=== PATIENT | male | born 1960 | race Caucasian/White ===

== ENCOUNTER 2019-01-13 07:00 | Outpatient (RCR) | payer SELFPAY ==
[2019-01-21 07:31] LABS: Glucose Point of Care 207 (65-105)
== END 2019-01-13 23:59 | disposition home or self-care (01) ==
LOC: ANHAUDIO 07:00
PROVIDERS: PCP Registered Nurse
DX: Z46.1 Encounter for fitting and adjustment of hearing aid (principal)
CPT/HCPCS: 99199

== ENCOUNTER 2019-01-24 09:43 | Observation (INO) | payer MEDICARE, MEDICAID, SELFPAY ==
[2019-01-24] VITALS (15 sets, daily range): BP systolic 123–166; BP diastolic 79–101; PULSE 74–86; RESP 16–24; TEMP 36.2–36.7; O2SAT 95–98; BMI 46.5
--- NOTE | ~2019-01-24 | CT_ITS ---
EXAMINATION: CT brain wo con DATE: 01/24/2019 18:39 INDICATION: Dizziness, diplopia and blurry vision TECHNIQUE: Computed tomography (CT) of the head was performed without intravenous contrast. Sagittal and coronal reconstructions were performed. The mA was adjusted according to patient size. Iterative reconstruction technique was employed. The dose-length product was 605.33 mGy-cm. COMPARISON: head CT dated 05/26/2018 FINDINGS: Unchanged small old lacunar infarct in the posterior right frontal aguayo radiata. No acute intracran ial hemorrhage, acute infarction or abnormal extra axial fluid collection. Ventricles are normal and symmetric. No mass/mass effect. Mild mucoperiosteal thickening the right ethmoid sinus. The orbits an d mastoid air cells are normal. Intracranial calcified cerebral atherosclerosis is noted. IMPRESSION: 1. No acute intracranial process. 2. Small old lacunar infarct in the right frontal aguayo radiata. Reviewed, dictated and finalized at location A. C THEORY PROFESSOR
--- NOTE | ~2019-01-24 | US_ITS ---
EXAMINATION: US carotid duplex BI DATE: 01/25/2019 09:29 INDICATION: Cerebrovascular accident. TECHNIQUE: Grayscale, color Doppler, and pulsed Doppler images of the cervical carotid arteries were obtained. The degree of vessel stenosis is placed in one of the following categories: normal, <50%, 5 0-69%, >=70% but less than near-occlusion, near-occlusion, or total occlusion. Note that percent sten osis relative to normal distal artery lumen diameter is indirectly measured from velocity measurement s as described by Marcus, et al. Radiology 2003; 229:340-346. COMPARISON: Ultrasound 05/19/2018 FINDINGS: RIGHT: The right common carotid artery (CCA) peak systolic velocity (PSV) is 86 cm/s. The right internal car otid artery (ICA) PSV is 71 cm/s. The right ICA end-diastolic velocity (EDV) is 21 cm/s. The right IC A/CCA PSV ratio is 0.8. Grayscale and color Doppler images yield an estimate of <50% diameter reducti on from plaque in the ICA. There is antegrade flow in the right vertebral artery. LEFT: The left CCA PSV is 93 cm/s. The left ICA PSV is 72 cm/s. The left ICA EDV is 29 cm/s. The left ICA/C CA PSV ratio is 0.8. Grayscale and color Doppler images yield an estimate of <50% diameter reduction from plaque in the ICA. There is antegrade flow in the left vertebral artery. IMPRESSION: 1. <50% stenosis in the right internal carotid artery. 2. <50% stenosis in the left internal carotid artery. Reviewed, dictated and finalized at location A. ACTER ARTIST
--- NOTE | ~2019-01-24 | XR_ITS ---
EXAMINATION: XR chest 2V EXAM DATE: 01/24/2019 10:18 INDICATION: Chest pain, shortness of breath. TECHNIQUE: Frontal and lateral projections of the chest obtained and reviewed. Comparison is made to prior examination from 11/29/2018, 10/07/2018. FINDINGS: Cardiomediastinal silhouette is normal. There is cardiac monitoring device. There are smal l bilateral pleural effusions. Some basilar linear opacities, prominent reticulation most likely atel ectasis. Basilar bronchopneumonia not excludable. No confluent consolidation or pneumothorax. There a re old right rib fracture. Patient has diffuse idiopathic skeletal hyperostosis (DISH). IMPRESSION: 1. Linear basilar atelectasis and small pleural effusions. Reviewed, dictated and finalized at location A. H HAND
--- NOTE | 2019-01-24 09:55 | ECG_ITS ---
Measurements Intervals [place] Rate: 81 P: 41 TN: 143 QRS: 28 QRSD: 149 T: 14 QT: 394 QTc: 458 Interpretive Statements SINUS RHYTHM RIGHT BUNDLE BRANCH BLOCK ABNORMAL ECG Electronically Signed On 01-24-2019 10:16:56 CHILI PEPPER GRINDER by Mathew Landon D.O.
[2019-01-24 10:14] LABS: Basophils Percent Auto 0.1 % (0.2-1.2); Eosinophils Absolute Auto 0.2 K/mm3 (0-0.3); Eosinophils Percent Auto 2.3 % (0-4.4); Hematocrit 40.5 % (42.0-52.0); Hemoglobin 13.6 g/dL (14.0-18.0); Immature Granulocyte Absolute 0.02 K/mm3 (0.00-0.031); Immature Granulocyte Percent A 0.3 % (0-0.5); Lymphocytes Absolute Auto 1.41 K/mm3 (0.9-3.2); Lymphocytes Percent Auto 17.7 % (18.3-44.2); Mean Corpuscular HGB Conc 33.6 g/dl (32-36); Mean Corpuscular Hemoglobin 30.7 pg (26-34); Mean Corpuscular Volume 91.4 fl (80-100); Mean Platelet Volume 11.3 fl (7.4-10.4); Monocytes Absolute Auto 0.7 K/mm3 (0.1-0.6); Monocytes Percent Auto 8.3 % (2.6-8.5); Neutrophils Absolute Auto 5.7 K/mm3 (1.3-6.7); Neutrophils Percent Auto 71.3 % (45.5-73.1); Platelet Count Result 142 k/mm3 (150-375); Red Blood Count 4.43 M/mm3 (4.6-6.20); Red Cell Distribution Width 13.4 % (11.5-14.5)
[2019-01-24 10:30] LABS: Partial Thromboplastin Time 28.1 SECONDS (22.3-36.8); Prothrombin Time 13.3 Seconds (11.1-14.7)
[2019-01-24 10:31] LABS: Blood Urea Nitrogen 15 mg/dL (9-20); Calcium 9.2 mg/dL (8.4-10.2); Carbon Dioxide 24 mmol/L (22-30); Chloride 102 mmol/L (98-107); Estimated CRCL calculation 120 ml/min; Estimated Glomerular Filt Rate > 60; Glucose 192 mg/dL (75-110); Potassium 4.2 mmol/L (3.4-5.0); Sodium 139 mmol/L (137-145)
--- NOTE | 2019-01-24 10:36 | ED.SOB ---
HPI - SOB/Dyspnea General Chief Complaint: Shortness of Breath/Dyspnea Stated Complaint: sob Time Seen by Provider: 01/24/19 10:26 Source: patient Mode of arrival: ambulatory Limitations: no limitations History of Present Illness HPI Narrative: Pt is a 58 y/o male with a PMHx of ND, CAD, HTN, HLD, and CHF, who presents to the ED with c/o SOB that started Thursday (2 days ago). Pt states that when he woke up Thursday morning and got up he was SOB, dizzy, and was having CP. He describes his CP as a dull ache. Pt also reports having a VILLASEÑOR in the ED bed. He states that all of his Sx are aggravated with exertion and alleviated with rest. He notes that it takes longer for his SOB to be alleviated with rest. He states that his dizziness felt like he was unstable to walk and was off balance. He also reports double vision and blurry vision. Pt notes that he always had ringing in his ears but it is louder than normal. He also reports nausea, dry cough, and congestion, but he denies vomiting or a fever. Pt states that he has not gained weight recently and he denies any leg swelling. He notes that he took his water pill yesterday morning and that he urinated throughout the day and woke up 5 times last night to urinate. Pt notes that his muscles feel like they are burning. His Coal Cutter is Dr. Willoughby. elicited complaint: shortness of breath Pertinent past history: congestive heart failure and other (ND, CAD, HTN, HLD) Onset (ago): day(s) (2) Exacerbating factors: exertion Relieving factors: rest Known history of: congestive heart failure Associated symptoms: chest pain, cough (dry), chest congestion, dizziness and other (nausea, VILLASEÑOR, tinnitus, double vision, blurry vision, myalgia) Treatment prior to arrival: none Related Data Allergies Allergy/AdvReac Type Severity Reaction Status Date / Time No Known Allergies Allergy Unknown Verified 01/24/19 10:01 Review of Systems Review of Systems: All systems reviewed & are unremarkable except as noted in HPI and below Constitutional: Constitutional: Denies fever(s) Eyes: Eyes: Reports blurry vision and Reports change in vision (double vision) ENT: Reports tinnitus (worsening) Cardiovascular: Cardiovascular: Reports chest pain (dull ache) Respiratory: Respiratory: Reports chest congestion, Reports cough (dry) and Reports dyspnea Gastrointestinal: Gastrointestinal: Reports nausea and Denies vomiting Musculoskeletal: Musculoskeletal: Reports myalgias (muscles burning) Neurologic: Reports dizziness and Reports headache(s) [facility] Past Medical History Medical History (Updated 01/24/19 @ 12:39 by Jose Yates MD) Anxiety (Acute) Arthritis (Acute) CAD (coronary artery disease) (Acute) CHF (congestive heart failure) (Acute) COPD (chronic obstructive pulmonary disease) (Acute) Crohn's disease (Acute) CVA (cerebral vascular accident) (Acute) Depression (Acute) Diabetes mellitus (Acute) Eczema (Acute) Fracture of fifth toe, right, closed (Acute) GERD (gastroesophageal reflux disease) (Acute) GI bleed (Acute) HLD (hyperlipidemia) (Acute) HTN (hypertension) (Acute) Kidney stones (Acute) Myocardial infarction (Acute) TAMIR on CPAP (Acute) Peripheral neuropathy (Acute) Pneumonia (Acute) Psoriasis (Acute) PVD (peripheral vascular disease) (Acute) Rectal polyp (Acute) Seasonal allergies (Acute) Sleep apnea (Acute) TIA (transient ischemic attack) (Acute) UTI (urinary tract infection) (Acute) Surgical History Surgical History (Updated 01/24/19 @ 10:59 by Sin Steve) H/O heart artery stent (Acute) H/O lithotripsy (Acute) History of cardiac catheterization (Acute) History of loop recorder (Acute) Hx of cholecystectomy (Acute) Hx of tonsillectomy (Acute) Family History Family History (Updated 05/27/17 @ 14:33 by DOCTOR UNKNOWN) Mother Diabetes mellitus Patient's mother is Father Acute myocardial infarction Family history of cardiovascular disease Sibling Family histor
[2019-01-24 10:40] LABS: NT Pro B Type Natriuretic Pept 39 PG/ML (5-100)
[2019-01-24 10:43] LABS: Troponin I < 0.012 ng/mL (0.000-0.034)
[2019-01-24] MEDS: ASPIRIN 81 MG CHEWABLE TABLET 324 MG PO (11:16)
--- NOTE | 2019-01-24 11:19 | PC.NURSE ---
Pt. stated being on plavix and a baby aspirin daily but has not taken them today. Waited for EDP to see Pt before administering 4 baby aspirins. EDP notified and is okay with administration of 4 baby aspirins.
[2019-01-24 13:39] LABS: Troponin I < 0.012 ng/mL (0.000-0.034)
[2019-01-24 16:42] LABS: Troponin I < 0.012 ng/mL (0.000-0.034)
[2019-01-24 17:29] LABS: Glucose Point of Care 139 (65-105)
--- NOTE | 2019-01-24 18:21 | PM.IMHP ---
H&P: HPI History of Present Illness Chief complaint: chest pain Narrative: Vini Zambrano is a 58 year old male has a past medical history of having a myocardial infarction with 2 stents, coronary artery disease, hypertension, hyperlipidemia, and congestive heart failure. The patient stated that he woke up day morning and when he got abuse short of breath, dizzy and having some chest pain. He also has dull headache. He has a bandlike headache. Patient has had multiple TIAs. He stated he has had at least 2 strokes. The patient felt very dizzy and unstable to walk today. He had double vision and blurred vision. Has ringing and is ears is worsened normal. The patient stated that the chest pain is more like a pressure. He is ordered for lactated Ringer's and given aspirin. Date of service is 01/24/2019. Patient stated that his chest pain has been constant has been a pressure. Patient is also short of breath when walking and when sitting still. Cardiology has been consulted. Troponins have been negative. Patient is being admitted for an tonight and possible TIA. Review of Systems Review of Systems: Narrative: The patient complains of dizziness, blurred vision, diplopia, chest pressure, and dyspnea on exertion and rest. He also complains of a pressure-like headache that the band away around his head. He typically has tinnitus but his ringing in his ears as worse today. He feels like he did when he has had a stroke in the past. All systems reviewed & are unremarkable except as noted in HPI and below Constitutional: Constitutional: Reports as per HPI and Reports no additional constitutional complaints Eyes: Eyes: Reports as per HPI, Reports blurry vision, Reports change in vision (Diplopia and blurred vision) and Reports diplopia ENT: Reports system reviewed and no additional complaints, except as documented, Reports hearing normal (Has hearing aids), Reports dizziness, Reports hearing loss and Reports other (Tinnitus worse than normal.) Cardiovascular: Cardiovascular: Reports no additional cardiovascular complaints, Reports chest pain, Reports chest pain at rest, Reports chest pain with activity, Reports dyspnea on exertion and Reports orthopnea Respiratory: Respiratory: Reports no additional respiratory complaints, Reports no additional respiratory complaints and Reports cough Gastrointestinal: Gastrointestinal: Reports as per HPI and Reports loose stools (Chronically since he got his gallbladder out.) Musculoskeletal: Musculoskeletal: Reports no additional musculoskeletal complaints Integumentary/Breasts: Skin/Breast: Reports system reviewed and no additional complaints, except as docu, Reports as per HPI and Reports dry skin (Bilateral elbows psoriasis) Neurologic: Reports system reviewed and no additional complaints, except as documented, Reports as per HPI and Reports Normal hearing present Psychiatric: Psychiatric: Reports no additional psychiatric complaints and Reports as per HPI Endocrine: Endocrine: Reports no additional endocrine complaints Hematologic/Lymphatic: Hematologic/Lymphatic: Reports no additional hematologic/lymphatic complaints Allergic/Immunologic: Allergic/Immunologic: Reports no additional allergic/immunologic complaints [facility] Past Medical History Medical History (Updated 01/24/19 @ 18:40 by Jennifer Paredes NP) Anxiety (Chronic) Arthritis (Chronic) CAD (coronary artery disease) (Chronic) CHF (congestive heart failure) (Chronic) COPD (chronic obstructive pulmonary disease) (Chronic) CVA (cerebral vascular accident) (Chronic) Depression (Chronic) Diabetes mellitus (Chronic) Eczema (Chronic) Fracture of fifth toe, right, closed (Resolved) GERD (gastroesophageal reflux disease) (Chronic) GI bleed (Resolved) HLD (hyperlipidemia) (Chronic) HTN (hypertension) (Chronic) Kidney stones (Chronic) Myocardial infarction (Resolved) TAMIR on CPAP (Chronic) Peripheral neuropathy (Chronic) Pneumonia (Resolved) Ps
[2019-01-24 18:51] LABS: Hemoglobin A1C 6.1 % (<5.7)
[2019-01-24 20:44] LABS: Glucose Point of Care 186 (65-105)
[2019-01-24] MEDS: ACETAMINOPHEN 325 MG TABLET 650 MG PO (20:48)
[2019-01-24] MEDS: FAMOTIDINE 20 MG/2 ML VIAL IV PUSH (20:49)
[2019-01-24] MEDS: IPRATROPIUM BR 0.02% INH SOLN 0.5 MG/2.5 ML VIAL INHALATION (21:20)
[2019-01-24] MEDS: ALBUTEROL SULFATE NEB 2.5 MG/0.5 ML INH INHALATION (21:20)
[2019-01-25] VITALS (15 sets, daily range): BP systolic 134–148; BP diastolic 68–70; PULSE 70–88; RESP 18–22; TEMP 36.2–36.7; O2SAT 96–99
--- NOTE | 2019-01-25 | ECHO_ITS ---
Patient Info Name: Vini Zambrano Age: 58 years : 1960 Gender: Male Ht: 72 in Wt: 341 lbs BSA: 2.88 m2 HR: 75 bpm BP: 140 / 70 mmHg Technical Quality: Good Exam Date: 01/25/2019 10:45 AM Exam Location: [facility] Patient Status: Outpatient Admit Date: 01/24/2019 Staff Ordering Physician: Jennifer Paredes NP Edge Finisher: Carlos Madera RDCS, RT Attending Provider: Emiliana Ayala MD Referring Physician: Lena VILLAREAL; Exam Type: CA echo dop color flow w con Study Info Indications I48.0 - Paroxysmal atrial fibrillation Complete two-dimensional, color flow and Doppler transthoracic echocardiogram is performed with contrast to opacify the left ventricle and to improve the deliniation of the left ventricle endocardial borders. Summary 1. Normal left ventricular size, with mild concentric left ventricular hypertrophy and good systolic function of all segments. No segmental wall motion abnormalities. The visual estimate of ejection fraction is 60-65%; measured 61%. Grade 2 diastolic dysfunction is present. 2. Right ventricular chamber dimension is mildly enlarged and mildly hypokinetic. 3. There is trace mitral and tricuspid valve regurgitation. 4. Mild pulmonary hypertension, estimated pulmonary arterial systolic pressure is 43 mmHg. 5. Technically difficult study; definity echo contrast used. 6. No significant change compared to the study of April 2018. Left Ventricle Left ventricular chamber dimension is normal. Left ventricular systolic function is normal, estimated at 60-65%. There is mildly increased left ventricular wall thickness. Left ventricular septal wall motion is normal. The left ventricular diastolic function is grade II diastolic dysfunction. Normal left ventricular size, with mild concentric left ventricular hypertrophy and good systolic function of all segments. No segmental wall motion abnormalities. The visual estimate of ejection fraction is 60-65%; measured 61%. Grade 2 diastolic dysfunction is present. Right Ventricle Right ventricular chamber dimension is mildly enlarged and mildly hypokinetic. Right ventricular systolic function is reduced. Left Atria Left atrial chamber dimension is normal. Right Atria Right atrial chamber dimension is normal. Aortic Valve The aortic valve is trileaflet. There is no aortic valve sclerosis. There is no aortic valve stenosis. There is no aortic valve regurgitation. Pulmonic Valve The pulmonic valve is normal. There is no pulmonic valve stenosis. There is no pulmonic regurgitation. Mitral Valve The mitral valve has normal leaflets. There is no mitral valve stenosis. There is trace mitral and tricuspid valve regurgitation. Tricuspid Valve The tricuspid valve leaflets are normal. There is no significant tricuspid valve stenosis. There is trace tricuspid valve regurgitation. Mild pulmonary hypertension, estimated pulmonary arterial systolic pressure is 43 mmHg. Pericardium/Pleural The pericardium appears normal. There is no pericardial effusion. Inferior Vena Cava Normal inferior vena cava with >50% collapse upon inspiration consistent with Empty right atrial pressure, 10 mmHg. Aorta The aortic root size at the sinus of Valsalva is normal. The prox ascending aorta size is normal. Left Ventricular Outflow Tract Name Value Normal
[2019-01-25] MEDS: ALBUTEROL SULFATE NEB 2.5 MG/0.5 ML INH INHALATION ×3 (02:20→13:33)
[2019-01-25] MEDS: IPRATROPIUM BR 0.02% INH SOLN 0.5 MG/2.5 ML VIAL INHALATION ×3 (02:20→13:33)
[2019-01-25 05:33] LABS: Basophils Percent Auto 0.2 % (0.2-1.2); Eosinophils Absolute Auto 0.2 K/mm3 (0-0.3); Eosinophils Percent Auto 2.4 % (0-4.4); Hematocrit 40.5 % (42.0-52.0); Hemoglobin 13.6 g/dL (14.0-18.0); Immature Granulocyte Absolute 0.03 K/mm3 (0.00-0.031); Immature Granulocyte Percent A 0.4 % (0-0.5); Immature Platelet Fraction Pct 6.3 % (0.9-11.2); Lymphocytes Absolute Auto 1.38 K/mm3 (0.9-3.2); Lymphocytes Percent Auto 16.6 % (18.3-44.2); Mean Corpuscular HGB Conc 33.6 g/dl (32-36); Mean Corpuscular Hemoglobin 30.6 pg (26-34); Mean Platelet Volume 11.2 fl (7.4-10.4); Monocytes Absolute Auto 0.7 K/mm3 (0.1-0.6); Monocytes Percent Auto 8.7 % (2.6-8.5); Neutrophils Percent Auto 71.7 % (45.5-73.1); Platelet Count Result 131 k/mm3 (150-375); Red Blood Count 4.45 M/mm3 (4.6-6.20); Red Cell Distribution Width 13.4 % (11.5-14.5); White Blood Count 8.3 K/mm3 (4.5-10.0)
[2019-01-25 05:42] LABS: Alanine Aminotransferase 48 U/L (4-50); Albumin Level 3.9 g/dL (3.5-5.1); Alkaline Phosphatase 56 U/L (38-126); Aspartate Amino Transferase 43 U/L (17-59); Bilirubin,Total 0.4 mg/dL (0.2-1.3); Blood Urea Nitrogen 15 mg/dL (9-20); Carbon Dioxide 26 mmol/L (22-30); Chloride 100 mmol/L (98-107); Estimated CRCL calculation 119 ml/min; Estimated Glomerular Filt Rate > 60; Glucose 177 mg/dL (75-110); Magnesium 1.7 mg/dL (1.6-2.3); Potassium 4.1 mmol/L (3.4-5.0); Sodium 137 mmol/L (137-145)
[2019-01-25 08:28] LABS: Glucose Point of Care 190 (65-105)
--- NOTE | 2019-01-25 09:09 | PM.CNCAR ---
Assessment and Plan Assessment and plan (1) Chest pain: Code(s): R07.9 - Chest pain, unspecified Status: Acute Assessment and Plan: 58-year-old morbidly obese male with known coronary disease, history of PCI/stenting of distal LCX and proximal LAD; hypertension, dyslipidemia, history of CVA with left-sided weakness, TAMIR on CPAP. Patient admitted about 4 day history of chest pain, worse with exertion. His EKG shows sinus rhythm, right bundle branch block acute ST segment abnormalities. Serial troponins are negative. Patient has known coronary disease, and has history of PCI/stenting. Ischemic evaluation options were discussed with the patient. He is eager to go home, and wants to have nonischemic evaluation in the Cardiology Clinic in next few days. Outpatient stress test with imaging will be arranged. Patient was advised to return to the hospital if he has severe recurrent chest discomfort. He verbalized understanding. Need for invasive workup will be based on patient's MPI results and his clinical course. Patient was advised to continue current medical regimen including antiplatelet therapy, antianginal medications, statin. (2) CAD (coronary artery disease): Code(s): I25.10 - Atherosclerotic heart disease of solomon coronary artery without angina pectoris Status: Chronic Assessment and Plan: Management plan as described above (3) TAMIR on CPAP: Code(s): G47.33 - Obstructive sleep apnea (adult) (pediatric); Z99.89 - Dependence on other enabling machines and devices Status: Chronic Assessment and Plan: Continue CPAP for TAMIR History of Present Illness History of Present Illness Consult date/time: 01/25/19 09:09 58-year-old morbidly obese male with known coronary disease, history of PCI/stenting of distal LCX and proximal LAD; hypertension, dyslipidemia, history of CVA with left-sided weakness, TAMIR on CPAP. Patient was admitted to the hospital with 4 days history of chest discomfort. He describes his chest pain as dull aching sensation in the substernal area which is worse with exertion. He has associated shortness of breath, fatigue and dizziness without syncope. Patient has known CAD, and had PCI/stenting of distal left circumflex on 09/11/2014. Subsequently, he had coronary angiogram done on 04/19/2015 in the setting of recurrent chest discomfort. At that time, he was found to have about 60% stenosis in the proximal LAD with abnormal FFR of 0.74. He underwent FFR guided PCI/GENARO x1 of proximal LAD. Over the years, patient states that he occasionally has discomfort, however, lately he is experiencing more frequent episodes of chest pain. He has not used any nitroglycerin at home. He reports compliance with current medical regimen including antiplatelet therapy. EKG on this admission which I personally evaluated shows sinus rhythm, right bundle-branch block, no acute ST segment abnormality. Serial troponins are negative. CT scan of the head reported old lacunar infarct. Previous BRITANY from 07/15/2018 showed normal LVEF, no inter-atrial shunt. At the time of evaluation, patient was undergoing bedside echocardiogram which on my preliminary assessment showed preserved LV systolic function. Patient is eager to go home and wants to have ischemic evaluation as an outpatient. Reason For Visit: chest pain Review of Systems Constitutional: Constitutional: Denies chills, Denies fatigue, Denies fever(s) and Denies headache(s) Eyes: Eyes: Reports as per HPI, Denies change in vision, Denies loss of vision and Denies eye pain ENT: Reports as per HPI, Reports hearing normal, Denies headache(s), Denies lip swelling, Denies epistaxis and Denies sore throat Cardiovascular: Cardiovascular: Reports chest pain, Denies syncope, Denies irregular heart rhythm, Reports lightheadedness and Reports dyspnea Respiratory: Respiratory: Reports as per HPI, Denies cough, Reports dyspnea and Denies wheezing Gastrointest
[2019-01-25] MEDS: FAMOTIDINE 20 MG/2 ML VIAL IV PUSH (10:04)
[2019-01-25] MEDS: PERFLUTREN LIPID MICROSPHERES 1.5 ML VIAL DILUTED TO 10 ML TOTAL VOLUME IV PUSH (11:39)
--- NOTE | 2019-01-25 11:52 | PM.DS ---
DS: Diagnosis Admitting Diagnosis Admitting Diagnosis: Other forms of angina pectoris Discharge Diagnosis (1) Angina at rest: Code(s): I20.8 - Other forms of angina pectoris Status: Acute Assessment and Plan: Vini Zambrano is a 58 year old male has a past medical history of having a myocardial infarction with 2 stents, coronary artery disease, hypertension, hyperlipidemia, and congestive heart failure. Pt had troponins x3 which were negative. PT seen by cardiology and is stable for dischrage with outpatient stress test. Pt has extensive cardiac history with PCI/stenting of distal LCX and proximal LAD. And has RBBB on EKG. Pt appears to be having some chest pain on exertion likely chronic stable angina, pt to continue with medications. and follow with cardiology for stress test. Pt is very eager to go home today. Prefers to follow up. Cardiac enzymes are negative x3. Patient is is a constant pressure. Cardiology to see. He does have a history of having 2 stents in the past (2) HLD (hyperlipidemia): Code(s): E78.5 - Hyperlipidemia, unspecified Status: Chronic Assessment and Plan: Continue with atrial statin. (3) HTN (hypertension): Code(s): I10 - Essential (primary) hypertension Status: Chronic Assessment and Plan: Continue with Coreg (4) Myocardial infarction: Code(s): I21.9 - Acute myocardial infarction, unspecified Status: Resolved Assessment and Plan: The patient had IA in the past 2 stents. On Coreg. (5) TAMIR on CPAP: Code(s): G47.33 - Obstructive sleep apnea (adult) (pediatric); Z99.89 - Dependence on other enabling machines and devices Status: Chronic Assessment and Plan: Home CPAP (6) Peripheral neuropathy: Code(s): G62.9 - Polyneuropathy, unspecified Status: Chronic Assessment and Plan: Continue to keep diabetes under control (7) Sleep apnea: Code(s): G47.30 - Sleep apnea, unspecified Status: Chronic Assessment and Plan: Continue with BiPAP. (8) Diabetes mellitus: Code(s): E11.9 - Type 2 diabetes mellitus without complications Status: Chronic Assessment and Plan: Sliding scale insulin. Hold metformin. (9) Depression: Code(s): F32.9 - Major depressive disorder, single episode, unspecified Status: Chronic Assessment and Plan: Continue bupropion (10) CVA (cerebral vascular accident): Code(s): I63.9 - Cerebral infarction, unspecified Status: Chronic Assessment and Plan: Patient is having similar symptoms to when he had a stroke in the past. CT brain and US carotoids completed prior to dischrage. (11) COPD (chronic obstructive pulmonary disease): Code(s): J44.9 - Chronic obstructive pulmonary disease, unspecified Status: Chronic Assessment and Plan: Duonebs prn in the hospital (12) CHF (congestive heart failure): Code(s): I50.9 - Heart failure, unspecified Status: Chronic Assessment and Plan: The patient is on Coreg and losartan. DS: Summary Time Spent with Patient Time attestation: Total time spent providing and/or coordinating discharge services:25 minutes on day of dischrage Exam Const: General: cooperative, healthy appearing, comfortable, no acute distress, well developed, awake and active Nutritional Appearance: average body habitus and well nourished Orientation/consciousness: oriented to person, oriented to place, oriented to time and oriented x3 Limitations: no limitations Resp: Effort & Inspection: normal respiratory effort Auscultation: clear to auscultation bilaterally Percussion: percussion normal Cardio: Palpation: normal PMI Rate: regular rate Rhythm: regular rhythm Heart sounds: S1 normal and S2 normal Peripheral pulses: pulses 2+ throughout GI: Inspection: normal to inspection Percussion: normal to percussion Auscultation: normal bowel sounds
[2019-01-25 12:22] LABS: Glucose Point of Care 150 (65-105)
== END 2019-01-25 14:50 | disposition home or self-care (01) ==
LOC: ANHED 12:39 → ANHIMU 01-25 11:37
PROVIDERS: Nurse Practitioner; Admitting Provider Hospitalist; Emergency Provider Emergency Medicine; PCP Registered Nurse; Visit Provider Family Medicine
DX: I25.118 Atherosclerotic heart disease of native coronary artery with other forms of angina pectoris (principal); I25.2 Old myocardial infarction; E78.5 Hyperlipidemia, unspecified; I11.0 Hypertensive heart disease with heart failure; I50.9 Heart failure, unspecified; G47.33 Obstructive sleep apnea (adult) (pediatric); E11.42 Type 2 diabetes mellitus with diabetic polyneuropathy; E11.51 Type 2 diabetes mellitus with diabetic peripheral angiopathy without gangrene; I69.354 Hemiplegia and hemiparesis following cerebral infarction affecting left non-dominant side; F17.210 Nicotine dependence, cigarettes, uncomplicated; E66.01 Morbid (severe) obesity due to excess calories; Z68.42 Body mass index [BMI] 45.0-49.9, adult; Z79.01 Long term (current) use of anticoagulants; Z79.84 Long term (current) use of oral hypoglycemic drugs; Z79.899 Other long term (current) drug therapy; Z95.5 Presence of coronary angioplasty implant and graft; Z99.89 Dependence on other enabling machines and devices; I65.23 Occlusion and stenosis of bilateral carotid arteries
CPT/HCPCS: 36415; 70450; 71046; 80048; 80053; 83036; 83735; 83880; 84443; 84484; 85025; 85610; 85730; 93005; 93880; 94640; 94660; 96374; 96375; 96376; 99285; A9270; C8929; G0378; Q9957

== ENCOUNTER 2019-03-01 07:00 | Outpatient (RCR) | payer SELFPAY ==
--- NOTE | 2019-02-07 07:53 | PCCPR ---
Pt called and has been absent in 3 due to CP. [facility] to send release Thursday, 02/04. Pt plans to return as soon as we receive release.
== END 2019-03-01 23:59 | disposition home or self-care (01) ==
LOC: ANHCPRIII 07:00
PROVIDERS: PCP Registered Nurse; Visit Provider Internal Medicine Cardiovascular Disease
DX: I20.9 Angina pectoris, unspecified (principal); I50.89 Other heart failure
CPT/HCPCS: 99199

== ENCOUNTER 2019-04-13 13:54 | Observation (INO) | payer MEDICARE, MEDICAID, SELFPAY ==
--- NOTE | ~2019-04-13 | XR_ITS ---
EXAMINATION: XR chest 2V EXAM DATE: 04/13/2019 14:38 INDICATION: Left hemiparesis, headache, shortness of breath. TECHNIQUE: Frontal and lateral projections of the chest obtained and reviewed. Comparison is made to prior examination from 03/11/2019. FINDINGS: Cardiac monitoring device. The lungs are clear. There are no pleural effusions. The card iomediastinal silhouette is within normal limits. There is no pneumothorax suspected. Old right rib fractures laterally. IMPRESSION: No acute cardiopulmonary findings. Reviewed, dictated and finalized at location B. FILL ATTENDANT
--- NOTE | ~2019-04-13 | CT_ITS ---
EXAMINATION: CT brain wo con DATE: 04/13/2019 14:34 INDICATION: Left hemiparesis. Right-sided headache. TECHNIQUE: Computed tomography (CT) of the head was performed without intravenous contrast. The mA wa s adjusted according to patient size. Iterative reconstruction technique was employed. The dose-lengt h product was 681.00 mGy-cm. COMPARISON: Head CT 03/11/2019 FINDINGS: There is a small area of cystic encephalomalacia in the right frontoparietal deep white mat ter. There is no intracranial hemorrhage, acute infarction, or abnormal intracranial mass lesion. The ventricles are normal in size. The orbits are normal. There is mild mucosal thickening in the parana rachna sinuses. The mastoid air cells are normal. IMPRESSION: 1. Small area of cystic encephalomalacia in the right frontoparietal deep white matter. Reviewed, dictated and finalized at location A. TZ MOUNTER
--- NOTE | 2019-04-13 14:22 | ECG_ITS ---
Measurements Intervals [place] Rate: 74 P: 60 ID: [id number] QRS: 1 QRSD: 157 T: 10 QT: 407 QTc: 453 Interpretive Statements SINUS RHYTHM RIGHT BUNDLE BRANCH BLOCK INFERIOR INFARCT, AGE INDETERMINATE ABNORMAL ECG Electronically Signed On 04-13-2019 20:07:17 CARDIAC TECHNICIAN by Mathew Landon D.O.
[2019-04-13 14:23] VITALS: BP 137/70; PULSE 83; RESP 16; TEMP 36.8; O2SAT 96
[2019-04-13 15:45] LABS: Basophils Percent Auto 0.1 % (0.2-1.2); Eosinophils Absolute Auto 0.1 K/mm3 (0-0.3); Eosinophils Percent Auto 1.8 % (0-4.4); Hematocrit 39.8 % (42.0-52.0); Hemoglobin 13.5 g/dL (14.0-18.0); Immature Granulocyte Absolute 0.02 K/mm3 (0.00-0.031); Immature Granulocyte Percent A 0.3 % (0-0.5); Lymphocytes Absolute Auto 1.34 K/mm3 (0.9-3.2); Lymphocytes Percent Auto 17.7 % (18.3-44.2); Mean Corpuscular HGB Conc 33.9 g/dl (32-36); Mean Corpuscular Hemoglobin 30.8 pg (26-34); Mean Corpuscular Volume 90.7 fl (80-100); Mean Platelet Volume 11.4 fl (7.4-10.4); Monocytes Absolute Auto 0.7 K/mm3 (0.1-0.6); Monocytes Percent Auto 8.6 % (2.6-8.5); Neutrophils Absolute Auto 5.4 K/mm3 (1.3-6.7); Neutrophils Percent Auto 71.5 % (45.5-73.1); Platelet Count Result 145 k/mm3 (150-375); Red Blood Count 4.39 M/mm3 (4.6-6.20); Red Cell Distribution Width 13.4 % (11.5-14.5); White Blood Count 7.6 K/mm3 (4.5-10.0)
[2019-04-13 15:55] LABS: INR 1.1; Prothrombin Time 13.4 Seconds (11.1-14.7)
[2019-04-13 15:56] LABS: Partial Thromboplastin Time 30.8 SECONDS (22.3-36.8)
[2019-04-13 16:09] LABS: Blood Urea Nitrogen 15 mg/dL (9-20); Calcium 9.4 mg/dL (8.4-10.2); Carbon Dioxide 22 mmol/L (22-30); Chloride 102 mmol/L (98-107); Glucose 210 mg/dL (75-110); Sodium 139 mmol/L (137-145); Troponin I < 0.012 ng/mL (0.000-0.034)
[2019-04-13 16:26] LABS: Estimated CRCL calculation 104 ml/min; Estimated Glomerular Filt Rate > 60
--- NOTE | 2019-04-13 17:34 | ED.NEUROSD ---
HPI - Neuro Symptoms/Deficit General Chief Complaint: Neuro Symptoms/Deficit Stated Complaint: left sided weakness/right sided headache Time Seen by Provider: 04/13/19 17:29 Source: patient Mode of arrival: ambulatory Limitations: no limitations History of Present Illness HPI Narrative: The pt is a 59 y/o male who presents to the ED c/o TIA symptoms onset today approximately [id number]. Pt states that these symptoms are very similar to ones he has had with TIAs. He notes that he had a recent TIA within the past two weeks. He also notes that he has not finished his home therapy for the last TIA he had. Pt reports left-sided weakness and right-sided VILLASEÑOR, but denies fever, chills, and N/V. Pt notes that his neurologist is Dr. Warren. Onset (ago): hour(s) (8.5-9) Location: left arm, left leg and other (Right headache) History of same: Yes Severity: similar to previous episodes Quality: weak Associated symptoms: headaches (Right-sided) Related Data Home Medications Medication Instructions Recorded Confirmed Breo Ellipta 100 inh INHALATION DAILY 01/24/19 03/11/19 Trulicity 1.5 mg SUBCUT WEEKLY 01/24/19 03/11/19 Xarelto 2.5 mg PO BID 01/24/19 03/11/19 amlodipine 10 mg PO DAILY 01/24/19 03/11/19 bupropion HCl 150 mg PO BID 01/24/19 03/11/19 doxazosin 2 mg PO HS 01/24/19 03/11/19 losartan 100 mg PO DAILY 01/24/19 03/11/19 metformin 1,000 mg PO BID 01/24/19 03/11/19 ciclopirox 8 % topical solution 1 applic TOPICAL DAILY 04/13/19 nitroglycerin 0.4 mg sublingual 0.4 mg SUBLINGUAL Q5M PRN 04/13/19 04/13/19 tablet omeprazole 40 mg capsule,delayed 40 mg PO DAILY 04/13/19 release potassium chloride 20 mEq 20 meq PO DAILY 04/13/19 tablet,extended release Allergies Allergy/AdvReac Type Severity Reaction Status Date / Time No Known Allergies Allergy Unknown Verified 04/13/19 18:21 Review of Systems Review of Systems: All systems reviewed & are unremarkable except as noted in HPI and below Constitutional: Constitutional: Denies chills and Denies fever(s) Gastrointestinal: Gastrointestinal: Denies nausea and Denies vomiting Neurologic: Reports headache(s) (Right-sided) and Reports weakness (Left-sided) [facility] Past Medical History Medical History (Updated 04/13/19 @ 18:51 by Rohan Dozier MD) Anxiety Arthritis CAD (coronary artery disease) CHF (congestive heart failure) COPD (chronic obstructive pulmonary disease) CVA (cerebral vascular accident) With mild left-sided weakness. Depression Diabetes mellitus Type 2 diabetes. Eczema Fracture of fifth toe, right, closed GERD (gastroesophageal reflux disease) GI bleed HLD (hyperlipidemia) HTN (hypertension) Kidney stones Myocardial infarction TAMIR on CPAP Peripheral neuropathy Pneumonia Psoriasis PVD (peripheral vascular disease) Rectal polyp Seasonal allergies Sleep apnea TIA (transient ischemic attack) Type 2 diabetes mellitus UTI (urinary tract infection) Surgical History Surgical History H/O heart artery stent 2 H/O lithotripsy History of cardiac catheterization 2 stents History of loop recorder History of rectal polypectomy Hx of cholecystectomy Hx of tonsillectomy Social History Social History Social History: The patient is and has no children. Rena Dodd is his durable power sports attorney for healthcare. He is a full code. 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/education comments: Disability Gender identity (if verbalized by the patient): Male Spiritual care concerns: No Agree to blood products: Yes Comments PCP: Sandi Alfaro APRN Neurology: Dr. Warren
[2019-04-13] MEDS: ACETAMINOPHEN 325 MG TABLET 650 MG PO ×2 (19:00→23:04)
[2019-04-13 19:39] VITALS: BP 132/74; PULSE 76; RESP 18; O2SAT 98
[2019-04-13 20:15] VITALS: BP 150/82; PULSE 73; RESP 18; TEMP 36.6; O2SAT 94
[2019-04-13 20:20] VITALS: BMI 44.8
--- NOTE | 2019-04-13 20:20 | ADMGEN ---
This patient, Vini Zambrano, was admitted to 3 [facility] Surg Room 310-01. Patient/family oriented to hospital policies and general routines including ID bracelet, bed and alarms, visiting hours, pain management, procedures, bathroom and other care routines, personal items, smoking policy, room service/diet, and visiting hours. Valuables list has been completed. Information on how to activate the Rapid Response Team has been discussed. Patient/Family are encouraged to report perceived risks to care and to ask questions if they do not understand what they are told or what they should do.
[2019-04-13 20:22] VITALS: BP 129/85; PULSE 72; RESP 16; TEMP 37; O2SAT 100
[2019-04-14] VITALS: PULSE 72
[2019-04-14 00:18] LABS: Glucose Point of Care 195 (65-105)
[2019-04-14 03:50] VITALS: BP 144/82; PULSE 76; RESP 20; TEMP 36.2; O2SAT 96
[2019-04-14 04:00] VITALS: PULSE 68
[2019-04-14] MEDS: ACETAMINOPHEN 325 MG TABLET 650 MG PO (04:12)
[2019-04-14 06:00] VITALS: BP 126/57; PULSE 70; RESP 20; TEMP 36.6; O2SAT 95
[2019-04-14 07:51] LABS: Glucose Point of Care 176 (65-105)
[2019-04-14 08:00] VITALS: PULSE 80
[2019-04-14 11:12] LABS: Glucose Point of Care 203 (65-105)
[2019-04-14] MEDS: INSULIN ASPART (*BKC) 100 UNITS/ML SUB-Q (11:39)
[2019-04-14] MEDS: ASPIRIN 81 MG CHEWABLE TABLET PO (11:39)
[2019-04-14 12:00] VITALS: PULSE 90
--- NOTE | 2019-04-14 13:29 | PM.IMHP ---
H&P: HPI History of Present Illness Chief complaint: tia Narrative: Date and Time of Service of History & Physical: April 14, 2019 at 1:15 p.m.. Date and Time of Placement in Observation Order: April 13, 2019 at 6:52 p.m.. Chief Complaint: Increased left-sided tingling and headache. History of Present Illness: Vini Zambrano is a 59 year old male with multiple medical problems including history of CVA/TIA, diabetes mellitus, coronary disease, peripheral vascular disease, congestive heart failure in several other comorbidities present to the emergency room yesterday with increased tingling on his left side along with headache. Patient has chronic tingling due to previous CVA/TIA. He does receive PT/OT at home as result. Patient notes yesterday symptoms were worse along with headache. He had no vision changes. He did feel unsteady. No speech or swallowing problems. He does report having some trouble answering questions yesterday. No recent fever, sweats or chills. He is being treated by his primary physician for an upper respiratory infection with cough and shortness of breath over the past 2 weeks. He did see his primary physician yesterday with change in antibiotic as well as inhaler started but was unable to roll picker from the pharmacy. He does note sweats last evening but none now. Patient reports still has slight increase in tingling on the left side but no headache now. He wishes to go home without having any further intervention. Patient had been offered outpatient treatment from the ER but was uncomfortable leaving last evening which resulted in his being placed in observation for further evaluation and treatment. Review of Systems Review of Systems: All systems reviewed & are unremarkable except as noted in HPI and below Constitutional: Constitutional: Denies chills and Denies fever(s) Eyes: Eyes: Denies blurry vision and Denies diplopia ENT: Denies nasal congestion and Denies nasal discharge Cardiovascular: Cardiovascular: Denies chest pain and Denies lightheadedness Respiratory: Respiratory: Reports cough and Reports dyspnea (With cough) Gastrointestinal: Gastrointestinal: Denies abdominal pain, Denies nausea and Denies vomiting Genitourinary: Genitourinary: Reports no additional male genitourinary complaints Musculoskeletal: Musculoskeletal: Reports no additional musculoskeletal complaints Integumentary/Breasts: Skin/Breast: Denies rash Neurologic: Denies Abnormal speech present, Denies confusion and Reports headache(s) (Yesterday) Comments: Increased tingling left side from chronic; unsteady gait Psychiatric: Psychiatric: Denies anxiety and Denies confusion Endocrine: Endocrine: Reports no additional endocrine complaints Hematologic/Lymphatic: Hematologic/Lymphatic: Reports no additional hematologic/lymphatic complaints Allergic/Immunologic: Allergic/Immunologic: Reports no additional allergic/immunologic complaints PMFSH Past Medical History Medical History Anxiety Arthritis CAD (coronary artery disease) CHF (congestive heart failure) COPD (chronic obstructive pulmonary disease) CVA (cerebral vascular accident) With mild left-sided weakness. Depression Diabetes mellitus Type 2 diabetes. Eczema Fracture of fifth toe, right, closed GERD (gastroesophageal reflux disease) GI bleed HLD (hyperlipidemia) HTN (hypertension) Kidney stones Myocardial infarction TAMIR on CPAP Peripheral neuropathy Pneumonia Psoriasis PVD (peripheral vascular disease) Rectal polyp Seasonal allergies Sleep apnea TIA (transient ischemic attack) Type 2 diabetes mellitus UTI (urinary tract infection) Surgical History Surgical History H/O heart artery stent 2 H/O lithotripsy History of cardiac catheterization 2 stents History of loop recorder History of rectal polypectomy Hx of cholecystectom
--- NOTE | 2019-04-14 13:57 | PM.DS ---
DS: Diagnosis Admitting Diagnosis Admitting Diagnosis: Transient cerebral ischemic attack, unspecified Discharge Diagnosis (1) TIA (transient ischemic attack): Code(s): G45.9 - Transient cerebral ischemic attack, unspecified Status: Resolved (2) HTN (hypertension): Qualifiers: Hypertension type: essential hypertension Qualified Code(s): I10 - Essential (primary) hypertension Code(s): I10 - Essential (primary) hypertension Status: Chronic (3) COPD (chronic obstructive pulmonary disease): Qualifiers: COPD type: unspecified COPD Qualified Code(s): J44.9 - Chronic obstructive pulmonary disease, unspecified Code(s): J44.9 - Chronic obstructive pulmonary disease, unspecified Status: Chronic (4) HLD (hyperlipidemia): Qualifiers: Hyperlipidemia type: unspecified Qualified Code(s): E78.5 - Hyperlipidemia, unspecified Code(s): E78.5 - Hyperlipidemia, unspecified Status: Chronic (5) Type 2 diabetes mellitus: Qualifiers: Diabetes mellitus complication status: without complication Diabetes mellitus long term care phlebotomist insulin use: without long term care phlebotomist use Qualified Code(s): E11.9 - Type 2 diabetes mellitus without complications Code(s): E11.9 - Type 2 diabetes mellitus without complications Status: Acute (6) CHF (congestive heart failure): Qualifiers: Heart failure chronicity: chronic Heart failure type: unspecified Qualified Code(s): I50.9 - Heart failure, unspecified Code(s): I50.9 - Heart failure, unspecified Status: Chronic (7) TAMIR on CPAP: Code(s): G47.33 - Obstructive sleep apnea (adult) (pediatric); Z99.89 - Dependence on other enabling machines and devices Status: Chronic DS: Summary Hospital Course Reason for hospitalization: Increased left-sided tingling and headache. Hospital Course: Date of Service of Discharge: April 14, 2019. History of Present Illness: Patient is a 59-year-old gentleman with multiple medical problems including history of CVA/TIA, diabetes mellitus, coronary artery disease, peripheral vascular disease, congestive heart failure as well as several other comorbidities who presented to the emergency room with increased tingling on the left side along with headache. He does have chronic tingling on the left side due to previous CVA/TIA. He does receive PT/OT at home as result. He reports on the day of presentation symptoms appear to be worse along with headache. No vision changes. He did feel unsteady. No speech or swallowing problems. He felt he did have some trouble answering questions on the day of presentation. No recent fever, chills or sweats. He was seen by his electric shipyard operator and started on a new inhaler as well as antibiotic but was unable to cotton picking machine operator due to presentation to emergency room. In the emergency room, patient essentially had no new findings on exam. Discussion was held with patient regarding possible discharge home and continued outpatient workup but patient felt uncomfortable. As aresult, he was placed in observation for further evaluation and treatment. Course in Hospital: He was placed on the medical floor where he remained for the duration of his stay. CT scan of the brain in the emergency room with no acute findings. MRI brain was initially ordered but patient decided he did not wish to pursue by 04/14/2019. Patient did not continued to have headache. Tingling did improve although still present. Blood pressure was monitored and stable. No exacerbation of COPD. Glucose was monitored with some elevation but patient had been unable to use his home Trulicity. He had no exacerbation of his congestive heart failure. With the patient having no new acute symptoms and declining any further testing, he was discharged home in stable condition on April 14, 2019. Status at Discharge Cognitive/behavioral status at discharge: Stable. Functional status
== END 2019-04-14 14:45 | disposition home health service (06) ==
LOC: ANHED 18:51 → ANH3MEDSUR 19:47
PROVIDERS: Emergency Medicine; Admitting Provider Hospitalist; Emergency Provider Family Medicine; PCP Registered Nurse; Visit Provider Hospitalist
DX: G45.9 Transient cerebral ischemic attack, unspecified (principal); I11.0 Hypertensive heart disease with heart failure; I50.9 Heart failure, unspecified; J44.9 Chronic obstructive pulmonary disease, unspecified; E78.5 Hyperlipidemia, unspecified; E11.42 Type 2 diabetes mellitus with diabetic polyneuropathy; E11.51 Type 2 diabetes mellitus with diabetic peripheral angiopathy without gangrene; G47.33 Obstructive sleep apnea (adult) (pediatric); I25.10 Atherosclerotic heart disease of native coronary artery without angina pectoris; F17.210 Nicotine dependence, cigarettes, uncomplicated; I25.2 Old myocardial infarction; Z79.01 Long term (current) use of anticoagulants; Z79.84 Long term (current) use of oral hypoglycemic drugs; Z79.899 Other long term (current) drug therapy; Z86.73 Personal history of transient ischemic attack (TIA), and cerebral infarction without residual deficits; Z99.89 Dependence on other enabling machines and devices
CPT/HCPCS: 36415; 70450; 71046; 80048; 84484; 85025; 85610; 85730; 93005; 99285; A9270; G0378; J1815

== ENCOUNTER 2019-04-21 12:23 | Emergency (ER) | payer MEDICARE, MEDICAID, SELFPAY ==
--- NOTE | ~2019-04-21 | CT_ITS ---
EXAMINATION: CT abdomen pelvis wo con EXAM DATE: 04/21/2019 13:34 INDICATION: Left flank pain. TECHNIQUE: Spiral CT of the abdomen and pelvis was performed without contrast. Axial, coronal and sag ittal images were reviewed. The dose-length product (DLP) for this examination was 1558.94 mGy-cm. The exposure was tailored according to patient size (auto mA exposure control), and iterative reconst ruction (ASIR) was used as additional dose reduction technique. Comparison is made to prior examinati on from 09/13/2018. FINDINGS: There is a large stone in the inferior aspect of the left renal collecting system measuring 1.7 cm. No hydronephrosis or other genitourinary calcifications. The prostate is unremarkable. Smal l bilateral inguinal fat-containing hernias. The bladder is unremarkable. There is a fat density le ft adrenal lesion again noted, a myelolipoma measuring 4 cm. Liver, right adrenal gland, pancreas, sp luh are unremarkable. There are cholecystectomy clips. There is no retroperitoneal or pelvic lymph adenopathy. The appendix is normal. The stomach and small bowel are unremarkable. There is expected amount of c olonic stool. No free intraperitoneal gas. The heart is normal in size. There are no pericardial or pleural effusions. The lung bases are unremarkable. There are no osteoblastic or osteolytic les ions identified. IMPRESSION: 1. Large left inferior moiety, calyceal stone. No hydronephrosis. 2. Left adrenal myelolipoma. Reviewed, dictated and finalized at location A. ITORY ACCOUNT EXECUTIVE
[2019-04-21 12:30] VITALS: BP 135/85; PULSE 82; RESP 16; TEMP 36.1; O2SAT 98
[2019-04-21 12:44] LABS: Basophils Percent Auto 0.2 % (0.2-1.2); Eosinophils Absolute Auto 0.2 K/mm3 (0-0.3); Eosinophils Percent Auto 1.9 % (0-4.4); Hematocrit 41.5 % (42.0-52.0); Hemoglobin 13.8 g/dL (14.0-18.0); Immature Granulocyte Absolute 0.04 K/mm3 (0.00-0.031); Immature Granulocyte Percent A 0.4 % (0-0.5); Immature Platelet Fraction Pct 5.3 % (0.9-11.2); Lymphocytes Absolute Auto 1.49 K/mm3 (0.9-3.2); Lymphocytes Percent Auto 16.3 % (18.3-44.2); Mean Corpuscular HGB Conc 33.3 g/dl (32-36); Mean Corpuscular Hemoglobin 30.4 pg (26-34); Mean Corpuscular Volume 91.4 fl (80-100); Monocytes Absolute Auto 0.7 K/mm3 (0.1-0.6); Monocytes Percent Auto 7.6 % (2.6-8.5); Neutrophils Absolute Auto 6.7 K/mm3 (1.3-6.7); Neutrophils Percent Auto 73.6 % (45.5-73.1); Platelet Count Result 140 k/mm3 (150-375); Red Blood Count 4.54 M/mm3 (4.6-6.20); Red Cell Distribution Width 13.3 % (11.5-14.5); White Blood Count 9.1 K/mm3 (4.5-10.0)
[2019-04-21 12:53] LABS: Blood Urea Nitrogen 16 mg/dL (9-20); Calcium 9.6 mg/dL (8.4-10.2); Carbon Dioxide 24 mmol/L (22-30); Chloride 96 mmol/L (98-107); Estimated CRCL calculation 129 ml/min; Estimated Glomerular Filt Rate > 60; Glucose 217 mg/dL (75-110); Potassium 4.3 mmol/L (3.4-5.0); Sodium 137 mmol/L (137-145)
[2019-04-21 13:01] LABS: Add Urine Microscopic? YES; Appearance Urine Clear (Clear); Bilirubin Urine Negative (Negative); Blood Urine 1+ (Negative); Color Urine Yellow (Yellow); Glucose Urine UA Negative (Negative); Ketones Urine Negative (Negative); Leukocyte Esterase Ur Negative LEU/UL (Negative); Mucus Urine Rare /lpf; Nitrate Urine Negative (Negative); Protein Urine Negative (Negative); Specific Grav Ur 1.013 (1.001-1.035); Urobilinogen Urine Negative mg/dL (<2.0); WBC Urine 0-3 /hpf
--- NOTE | 2019-04-21 13:06 | ED.ABDPAIN ---
HPI - Abdominal Pain General Chief Complaint: Abdominal Pain Stated Complaint: left flank pain Time Seen by Provider: 04/21/19 13:04 Source: patient and RN notes reviewed Mode of arrival: ambulatory Limitations: no limitations History of Present Illness HPI narrative: A 59 y/o male presents to the ED with intermittent lt flank pain for the past 12.5 hours. He reports associated nausea, dizziness, and diarrhea. He notes that he has a hx of 15 kidney stones and currently has a 22mm lt kidney stone. He also notes that he contacted his urologist, Dr. Blanton, who told him to come to the ED. He denies any vomiting, constipation, dysuria, hematuria, or urinary frequency. MD elicited complaint: flank pain (lt) Pertinent past history: kidney stones Onset (ago): hour(s) (12.5) Pain Consistency: intermittent Location: L flank Context: confirms history of similar episodes Associated symptoms: nausea, diarrhea and other (dizziness) Related Data Home Medications Medication Instructions Recorded Confirmed Breo Ellipta 100 inh INHALATION DAILY 01/24/19 04/13/19 Trulicity 1.5 mg SUBCUT WEEKLY 01/24/19 04/13/19 Xarelto 2.5 mg PO BID 01/24/19 04/13/19 amlodipine 10 mg PO DAILY 01/24/19 04/13/19 bupropion HCl 150 mg PO BID 01/24/19 04/13/19 doxazosin 2 mg PO HS 01/24/19 04/13/19 losartan 100 mg PO DAILY 01/24/19 04/13/19 metformin 1,000 mg PO BID 01/24/19 04/13/19 ciclopirox 8 % topical solution 1 applic TOPICAL DAILY 04/13/19 04/13/19 nitroglycerin 0.4 mg sublingual 0.4 mg SUBLINGUAL Q5M PRN 04/13/19 04/13/19 tablet omeprazole 40 mg capsule,delayed 40 mg PO DAILY 04/13/19 04/13/19 release potassium chloride 20 mEq 20 meq PO DAILY 04/13/19 04/13/19 tablet,extended release Allergies Allergy/AdvReac Type Severity Reaction Status Date / Time No Known Allergies Allergy Unknown Verified 04/21/19 13:15 Review of Systems Review of Systems: All systems reviewed & are unremarkable except as noted in HPI and below Gastrointestinal: Gastrointestinal: Denies constipation, Reports diarrhea, Reports nausea and Denies vomiting Genitourinary: Genitourinary: Denies hematuria, Denies dysuria, Reports flank pain (lt) and Denies urinary frequency PMFSH Past Medical History Medical History Anxiety Arthritis CAD (coronary artery disease) CHF (congestive heart failure) COPD (chronic obstructive pulmonary disease) CVA (cerebral vascular accident) With mild left-sided weakness. Depression Diabetes mellitus Type 2 diabetes. Eczema Fracture of fifth toe, right, closed GERD (gastroesophageal reflux disease) GI bleed HLD (hyperlipidemia) HTN (hypertension) Kidney stones Myocardial infarction TAMIR on CPAP Peripheral neuropathy Pneumonia Psoriasis PVD (peripheral vascular disease) Rectal polyp Seasonal allergies Sleep apnea TIA (transient ischemic attack) Type 2 diabetes mellitus UTI (urinary tract infection) Surgical History Surgical History H/O heart artery stent 2 H/O lithotripsy History of cardiac catheterization 2 stents History of loop recorder History of rectal polypectomy Hx of cholecystectomy Hx of tonsillectomy Family History Family History Mother Diabetes mellitus Patient's mother is Father Acute myocardial infarction Family history of cardiovascular disease Sibling Family history of cardiovascular disease Social History Social History Social History: The patient is and has no children. Rena Dodd is his durable power tax associate attorney for healthcare with whom he lives as a roommate. He is a full code. He does smoke 3 cigarettes per day currently. No current alcohol use. Smoking packs per day: 0.1 Smoking cigarettes per day: 2.0 Years smoked: 40 Smoking pack-year
[2019-04-21] MEDS: KETOROLAC 30 MG/ML VIAL (*BKC) IV PUSH (14:30)
[2019-04-21 14:33] VITALS: BP 133/84; PULSE 76; RESP 19; O2SAT 100
--- NOTE | 2019-04-21 15:35 | WPDURCON ---
Assessment and Plan Assessment and plan (1) Kidney stones: Code(s): N20.0 - Calculus of kidney Status: Chronic Assessment and Plan: Large left renal stone may be starting to cause left flank pain. If pt. able to stop Xarelto and ASA, we'll schedule cysto/left stent and left EWSL. 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 kidney stones. Last seen just 8 day ago and was feeling well. Now presents to ER with intermittent, moderate left flan pain. CT-abd/pelvis shows 17mm left renal stones that encroaching on left renal pelvic outlet. He denies gross hematuria, fever/chills. Review of Systems Cardiovascular: Cardiovascular: Denies chest pain, Denies lightheadedness, Denies palpitations and Denies dyspnea Respiratory: Respiratory: Denies dyspnea Gastrointestinal: Gastrointestinal: Denies diarrhea, Denies nausea and Denies vomiting Genitourinary: Genitourinary: Denies hematuria and Denies dysuria Endocrine: Endocrine: Denies palpitations PMFSH Past Medical History Medical History Anxiety Arthritis CAD (coronary artery disease) CHF (congestive heart failure) COPD (chronic obstructive pulmonary disease) CVA (cerebral vascular accident) With mild left-sided weakness. Depression Diabetes mellitus Type 2 diabetes. Eczema Fracture of fifth toe, right, closed GERD (gastroesophageal reflux disease) GI bleed HLD (hyperlipidemia) HTN (hypertension) Kidney stones Myocardial infarction TAMIR on CPAP Peripheral neuropathy Pneumonia Psoriasis PVD (peripheral vascular disease) Rectal polyp Seasonal allergies Sleep apnea TIA (transient ischemic attack) Type 2 diabetes mellitus UTI (urinary tract infection) Surgical History Surgical History H/O heart artery stent 2 H/O lithotripsy History of cardiac catheterization 2 stents History of loop recorder History of rectal polypectomy Hx of cholecystectomy Hx of tonsillectomy Family History Family History Mother Diabetes mellitus Patient's mother is Father Acute myocardial infarction Family history of cardiovascular disease Sibling Family history of cardiovascular disease Social History Social History Social History: The patient is and has no children. Rena Dodd is his durable power corporate associate attorney for healthcare with whom he lives as a roommate. He is a full code. He does smoke 3 cigarettes per day currently. No current alcohol use. 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 Gender identity (if verbalized by the patient): Male Spiritual care concerns: No Agree to blood products: Yes Meds Home Medications and Allergies Home Medications Medication Instructions Recorded Confirmed Type Breo Ellipta 100 inh INHALATION DAILY 01/24/19 04/13/19 History Trulicity 1.5 mg SUBCUT WEEKLY 01/24/19 04/13/19 History Xarelto 2.5 mg PO BID 01/24/19 04/13/19 History amlodipine 10 mg PO DAILY 01/24/19 04/13/19 History bupropion HCl 150 mg PO BID 01/24/19 04/13/19 History doxazosin 2 mg PO HS 01/24/19 04/13/19 History losartan 100 mg PO DAILY 01/24/19 04/13/19 History metformin 1,000 mg PO BID 01/24/19 04/13/19 History Combivent Respimat 2 puff INHALATION BID #0 g 01/25/19 04/13/19 Rx aspiri
[2019-04-21 16:54] VITALS: BP 130/82; PULSE 74; RESP 17; O2SAT 100
== END 2019-04-21 16:54 | disposition home or self-care (01) ==
PROVIDERS: Emergency Provider Emergency Medicine; PCP Registered Nurse
DX: N20.0 Calculus of kidney (principal); D17.71 Benign lipomatous neoplasm of kidney; M19.90 Unspecified osteoarthritis, unspecified site; I50.9 Heart failure, unspecified; I11.0 Hypertensive heart disease with heart failure; I69.954 Hemiplegia and hemiparesis following unspecified cerebrovascular disease affecting left non-dominant side; E11.51 Type 2 diabetes mellitus with diabetic peripheral angiopathy without gangrene; E78.5 Hyperlipidemia, unspecified; K21.9 Gastro-esophageal reflux disease without esophagitis; I25.2 Old myocardial infarction; G47.33 Obstructive sleep apnea (adult) (pediatric); E11.42 Type 2 diabetes mellitus with diabetic polyneuropathy; F41.9 Anxiety disorder, unspecified; F32.9 Major depressive disorder, single episode, unspecified; Z79.84 Long term (current) use of oral hypoglycemic drugs; Z87.442 Personal history of urinary calculi; Z87.440 Personal history of urinary (tract) infections; Z95.5 Presence of coronary angioplasty implant and graft; F17.210 Nicotine dependence, cigarettes, uncomplicated; Z79.01 Long term (current) use of anticoagulants
CPT/HCPCS: 36415; 74176; 80048; 81001; 85025; 85055; 96374; 96375; 99284; J0131; J1885

== ENCOUNTER 2019-04-29 08:41 | Outpatient (RCR) | payer MEDICARE, MEDICAID, SELFPAY ==
--- NOTE | 2019-04-29 10:08 | OTOPEVAL ---
OCCUPATIONAL THERAPY EVALUATION AND DISCHARGE REPORT 04/29/2019 Thank you for referring this patient to [facility]. Vini presents with minimal left sided deficits following CVA. He has been instructed in a home program to continue to work on gross strength and fine motor coordination. No further skilled OT is indicated at this time. Plan to D/C with pt. independent with HEP. Please review, sign, date and return this plan GISSELLE. I agree with and certify that the following plan of care is medically necessary. Referring Physician Date Admitting Provider: Attending Provider: Sandi Alfaro, SITE ADMINISTRATOR Referring Provider: *OT Outpatient Evaluation Start: 04/29/19 08:54 Freq: Status: Active Protocol: Document 04/29/19 08:57 JOSÉ (Rec: 04/29/19 10:04 JOSÉ [id number]) Outpatient Past Medical History Neurological History Hx Cerebrovascular Accident (CVA) Yes: MILD LEFT SIDED WEAKNESS Hx Transient Ischemic Attacks (TIA) Yes Cardiovascular History Hx Angina Yes Hx Cardiac Catheterization Yes Hx Chest Pain Yes Hx Congestive Heart Failure Yes Hx Coronary Artery Disease Yes Hx Coronary Stent Yes: X2 Hx Hypercholesterolemia Yes Hx Hypertension Yes Hx Myocardial Infarction Yes Hx Peripheral Vascular Disease Yes Hx Other Cardiac Disorders Yes: implanted loop recorder, FOLLOWS WITH DR. TONY Respiratory History Hx Chronic Obstructive Pulmonary Disease Yes (COPD) Hx Pneumonia Yes Hx Sleep Apnea Yes: USES CPAP Gastrointestinal History Hx Cholecystectomy Yes Hx Gastroesophageal Reflux Disease Yes Hx Gastrointestinal Bleed Yes Hx Polyps Yes Hx Ulcer Yes Genitourinary History Hx Kidney Stones Yes: LITHROTRIPSY Hx Urinary Tract Infection Yes Musculoskeletal History Hx Arthritis Yes Hematological History Hx Hematological Disorders No Significant History Endocrine History Hx Diabetes Yes HEENT History Hx Tonsillectomy Yes Hx Dental Problems Yes: [place] Hx Other HEENT Disorders Yes: [place] Integumentary History Hx Eczema Yes Hx Psoriasis Yes Reproductive History Hx Reproductive Disorders No Significant History Psychosocial History Hx Anxiety Yes Hx Depression Yes Pain History History of Any Previous or Ongoing No Significant History Instance of Pain Anesthesia History Hx Anesthesia Reactions No Significant History Evaluation Information Problem Diagnosis (L) sided weakness s/p CVA Prior Level of Function Activity Level (Last 3 Months)
== END 2019-05-02 10:23 | disposition home or self-care (01) ==
LOC: ANHOT 08:41
PROVIDERS: PCP Registered Nurse; Visit Provider Registered Nurse
DX: I69.359 Hemiplegia and hemiparesis following cerebral infarction affecting unspecified side (principal); R53.1 Weakness
CPT/HCPCS: 97110; 97165

== ENCOUNTER 2019-05-03 10:28 | Outpatient (CLI) | payer MEDICARE, MEDICAID, SELFPAY ==
[2019-05-03 11:07] LABS: INR 1.1; Prothrombin Time 14.2 Seconds (11.1-14.7)
[2019-05-03 11:08] LABS: Partial Thromboplastin Time 33.8 SECONDS (22.3-36.8)
== END 2019-05-03 10:29 | disposition home or self-care (01) ==
PROVIDERS: Anesthesiology; PCP Registered Nurse; Visit Provider Urology
DX: Z01.818 Encounter for other preprocedural examination (principal); N20.0 Calculus of kidney
CPT/HCPCS: 36415; 85610; 85730; 87086

== ENCOUNTER 2019-05-13 01:42 | Day surgery (SDC) | payer MEDICARE, MEDICAID, SELFPAY ==
[2019-04-28 11:45] VITALS: BMI 45.3
--- NOTE | ~2019-05-13 | XR_ITS ---
XR abdomen/kub 1V DATE: 05/13/2019 06:15 INDICATION: Left lithotripsy TECHNIQUE: AP projection, 2 views COMPARISON: 10/22/[address] abdomen pelvis FINDINGS: There is again evidence of faintly calcified large left mid to lower renal staghorn calculu s. Surgical clips, right upper quadrant, consistent with cholecystectomy. The psoas shadows are intact. No visceromegaly is evident. No evidence of bowel obstruction. Included skeletal structures are unremarkable other than some degenerative changes of the thoracic an d lumbar spine. IMPRESSION: Persistent large faintly calcified mid to lower left renal cyst staghorn calculus Reviewed, dictated and finalized at [facility]. Reviewed, dictated and finalized at [facility]. IMPRESSION: Persistent large faintly calcified mid to lower left renal cyst sta ghorn calculus
--- NOTE | 2019-05-13 06:37 | SUR.PREOP ---
0625- pt stated he took xeralto yeterday morning, forgot to remove from pill box. called dr. huntley on cell phone and he stated he will be here in about 15 minuties to talk to pt. pt updated
--- NOTE | 2019-05-13 07:13 | SUR.PREOP ---
0710- dr. huntley spoke with pt and cancelled his case because blood thinner was taken.
--- NOTE | 2019-05-13 10:11 | SUR.PREOP ---
0720- DISCHARGE INSTRUCTIONS GIVEN TO PT AND FRIEND.
--- NOTE | 2019-05-25 12:53 | PM.HPGS ---
History of Present Illness History of Present Illness Consent: Risks, benefits, and alternatives have been discussed and questions answered. Patient agrees to proceed with procedure. Chief complaint: renal kidney stones Narrative: Vini Zambrano is a 59 year old male in ER 04/2019 with left flank pain, n/v. CT imaging demonstrated a 17mm left renal stone. After clearance to stop his anticoagulation he now presents for cystoscopy with left stent placement and left ESWL. He is aware of the risk including, but not limited to, intraoperative bleeding, damage to his kidney, hypertension, failure to completely fracture the stone. Review of Systems Constitutional: Constitutional: Denies chills, Denies fatigue, Denies fever(s) and Denies headache(s) Eyes: Eyes: Denies blurry vision ENT: Denies vertigo, Denies dizziness, Denies headache(s) and Denies sore throat Cardiovascular: Cardiovascular: Denies chest pain, Denies syncope, Denies lightheadedness, Denies palpitations, Denies dyspnea and Denies dyspnea on exertion Respiratory: Respiratory: Denies hemoptysis, Denies dyspnea and Denies dyspnea on exertion Gastrointestinal: Gastrointestinal: Denies melena, Denies bloating, Denies hematochezia, Denies change in bowel habits, Denies change in stool character, Denies constipation, Denies diarrhea and Denies vomiting Genitourinary: Genitourinary: Denies hematuria, Denies dysuria, Denies testicular pain, Denies urinary frequency, Denies urinary hesitancy and Denies urinary urgency Integumentary/Breasts: Skin/Breast: Denies pruritus, Denies lesions and Denies rash Neurologic: Denies confusion, Denies vertigo, Denies dizziness, Denies syncope and Denies headache(s) Psychiatric: Psychiatric: Denies anxiety, Denies change in appetite and Denies confusion Endocrine: Endocrine: Denies fatigue and Denies palpitations PMFSH Past Medical History Medical History Anxiety Arthritis CAD (coronary artery disease) CHF (congestive heart failure) COPD (chronic obstructive pulmonary disease) CVA (cerebral vascular accident) With mild left-sided weakness. Depression Diabetes mellitus Type 2 diabetes. Eczema Fracture of fifth toe, right, closed GERD (gastroesophageal reflux disease) GI bleed HLD (hyperlipidemia) HTN (hypertension) Kidney stones Myocardial infarction TAMIR on CPAP Peripheral neuropathy Pneumonia Psoriasis PVD (peripheral vascular disease) Rectal polyp Seasonal allergies Sleep apnea TIA (transient ischemic attack) Type 2 diabetes mellitus UTI (urinary tract infection) Surgical History Surgical History H/O heart artery stent 2 H/O lithotripsy History of cardiac catheterization 2 stents History of loop recorder History of rectal polypectomy Hx of cholecystectomy Hx of tonsillectomy Social History Social History Social History: The patient is and has no children. Rena Dodd is his durable power energy attorney for healthcare with whom he lives as a roommate. He is a full code. He does smoke 3 cigarettes per day currently. No current alcohol use. 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
== END 2019-05-13 07:20 | disposition home or self-care (01) ==
PROVIDERS: PCP Registered Nurse; Visit Provider Urology
PROC: (CPT 50590; principal; 2019-05-13 07:30)
DX: N20.0 Calculus of kidney (principal); Z53.9 Procedure and treatment not carried out, unspecified reason
CPT/HCPCS: 74018; 99211; G0463; J0131; J2250; J3010

== ENCOUNTER 2019-05-19 08:22 | Outpatient (CLI) | payer MEDICARE, MEDICAID, SELFPAY ==
[2019-05-19 08:54] LABS: Partial Thromboplastin Time 35.3 SECONDS (22.3-36.8)
[2019-05-19 09:02] LABS: INR 1.2; Prothrombin Time 14.8 Seconds (11.1-14.7)
== END 2019-05-19 08:23 | disposition home or self-care (01) ==
PROVIDERS: PCP Registered Nurse; Visit Provider Urology
DX: N20.0 Calculus of kidney (principal)
CPT/HCPCS: 36415; 85610; 85730; 87086

== ENCOUNTER 2019-05-27 00:33 | Day surgery (SDC) | payer MEDICARE, MEDICAID, SELFPAY ==
[2019-05-16 12:44] VITALS: BMI 45.3
--- NOTE | 2019-05-16 12:49 | PC.NURSE ---
PT STATES NO CHANGE IN HEALTH HX FROM 04/29/19
--- NOTE | ~2019-05-27 | XR_ITS ---
EXAMINATION: XR abdomen/kub 1V INDICATION: Left-sided lithotripsy TECHNIQUE: Supine views of the abdomen were obtained on 2 radiographs. COMPARISON: 05/13/2019 FINDINGS: Again seen is likely staghorn calculus of the left kidney lower pole. No additional urinary tract calculi are identified. The gallbladder is surgically absent. The bowel gas pattern is normal. There are phleboliths of the pelvis. IMPRESSION: 1. Staghorn calculus of the left kidney lower pole, unchanged. Reviewed, dictated and finalized at [facility].
[2019-05-27 09:30] VITALS: BP 155/89; PULSE 81; RESP 12; TEMP 36.2; O2SAT 95
[2019-05-27] MEDS: LACTATED RINGERS 1,000 ML 30 ML IV CONT (09:30)
--- NOTE | 2019-05-27 09:36 | WPDANESEPPF ---
Anes - Initial Pre Proc Eval Procedure: Operation Date: 05/27/19 10:30 Proposed Procedures p Cystoscopy, Left Renal Extracorporeal Shock Wave Lithotripsy With Stent Placement - Prakash Blanton MD Date/Time: 05/27/19 09:36 Surgeon: Prakash Blanton MD Pre Op Diagnosis: Left Renal Stone Patient Data Age: 59 Gender: M Height: 6 ft Weight: 151.5 kg Allergies Allergy/AdvReac Type Severity Reaction Status Date / Time No Known Allergies Allergy Unknown Verified 05/16/19 12:39 Home Medications Medication Instructions Recorded Confirmed Type Breo Ellipta 1 inh INHALATION DAILY 01/24/19 05/16/19 History Trulicity 1.5 mg SUBCUT WEEKLY 01/24/19 05/16/19 History Xarelto 2.5 mg PO BID 01/24/19 05/16/19 History amlodipine 10 mg PO DAILY 01/24/19 05/16/19 History bupropion HCl 150 mg PO BID 01/24/19 05/16/19 History doxazosin 2 mg PO HS 01/24/19 05/16/19 History losartan 100 mg PO HS 01/24/19 05/16/19 History metformin 1,000 mg PO BID 01/24/19 05/16/19 History aspirin [Children's Aspirin] 81 mg PO DAILY@0800 #30 tablet 03/13/19 05/16/19 Rx cyanocobalamin (vitamin B-12) 1,000 mcg PO QAM #30 tablet 03/13/19 05/16/19 Rx [Vitamin B-12] furosemide 40 mg PO DAILY #30 tablet 03/13/19 05/16/19 Rx ciclopirox 8 % topical solution 1 applic TOPICAL DAILY PRN 04/13/19 05/16/19 History nitroglycerin 0.4 mg sublingual 0.4 mg SUBLINGUAL Q5M PRN 04/13/19 05/16/19 History tablet omeprazole 40 mg capsule,delayed 40 mg PO DAILY 04/13/19 05/16/19 History release potassium chloride 20 mEq 20 meq PO DAILY 04/13/19 05/16/19 History tablet,extended release albuterol sulfate [Ventolin HFA] 2 puff INHALATION DIRECTED PRN 04/28/19 05/16/19 History carvedilol [Coreg] 25 mg PO BID 04/28/19 05/16/19 History isosorbide mononitrate 30 mg PO HS 04/28/19 05/16/19 History Combivent Respimat 2 puff INHALATION PRN PRN 05/16/19 05/16/19 History atorvastatin 80 mg PO HS 05/16/19 05/16/19 History Patient hx anesthesia problems: none Family hx anesthesia problems: none PMFSH Past Medical History Medical History Anxiety Arthritis CAD (coronary artery disease) CHF (congestive heart failure) COPD (chronic obstructive pulmonary disease) CVA (cerebral vascular accident) With mild left-sided weakness. Depression Diabetes mellitus Type 2 diabetes. Eczema Fracture of fifth toe, right, closed GERD (gastroesophageal reflux disease) GI bleed HLD (hyperlipidemia) HTN (hypertension) Kidney stones Myocardial infarction TAMIR on CPAP Peripheral neuropathy Pneumonia Psoriasis PVD (peripheral vascular disease) Rectal polyp Seasonal allergies Sleep apnea TIA (transient ischemic attack) Type 2 diabetes mellitus UTI (urinary tract infection) Surgical History Surgical History H/O heart artery stent 2 H/O lithotripsy History of cardiac catheterization 2 stents History of loop recorder History of rectal polypectomy Hx of cholecystectomy Hx of tonsillectomy Family History Family History Mother Diabetes mellitus Patient's mother is Father Acute myocardial infarction Family history of cardiovascular disease Sibling Family history of cardiovascular disease Social History Social History Social History: The patient is and has no children. Rena Dodd is his durable power environmental attorney for healthcare with whom he lives as a roommate. He is a full code. He does smoke 3 cigarettes per day currently. No current alcohol use. Smoking packs per day: 0.1 Smoking cigarettes per day: 2.0 Years smoked: 40 Smoking pack-years: 4.00 Smoking status: Current every day smoker Tobacco type: cigarettes Second hand tobacco smoke exposure: Yes Alcohol intake: never Substance use: never
[2019-05-27 09:37] LABS: Glucose Point of Care 222 (65-105)
--- NOTE | 2019-05-27 11:50 | PM.PROC ---
Procedure Note - Detailed Date of procedure: 05/27/19 Pre-op diagnosis: Left Renal Stone Post-op diagnosis: same Procedure performed: 1. Cystoscopy, left ureteral stent placement 2. Left ESWL Description of procedure: The patient was brought to the operative suite where he was placed in the supine position on the Dornier lithotripter table. Flexible cystoscopy was undertaken with a 16F flexible cystoscopy. There were no urethral strictures. The prostatic uretehral estimated lenght was 2.0cm. There was moderate obstruction of the prostatic urethra with moderate median lobe enlargement. The bladder mucosa was normal and there was a single, orthotopic ureteral orifice bilaterally. A 0.035 glidewire was advanced into the left renal pelvis under fluoroscopy. A 4.8F J-J ureteral stent was positioned with the proximal coil in the renal pelvis and the distal coil in the bladder. The patient was then repositioned in the supine position with the focal point of the lithotriptor on a 17mm left lower pole renal calculus. A total of 2500 shocks were delivered at a power setting of 8. There appeared to be good fragmentation of the stone. The patient tolerated the procedure well and was taken to the recovery room in good condition. Anesthesia: GLMA Surgeon: Prakash Blanton MD Estimated blood loss (mL): 0 Drains: Yes (4.8F left ureteral stent) Packing: No Pathology: none sent Complications: No immediate complications Condition: stable Disposition: PACU
[2019-05-27 12:13] VITALS: BP 111/62; PULSE 80; RESP 20; TEMP 36.6; O2SAT 95
[2019-05-27 12:25] VITALS: BP 107/76; PULSE 78; RESP 21; O2SAT 98
[2019-05-27 12:29] LABS: Glucose Point of Care 198 (65-105)
[2019-05-27 12:40] VITALS: BP 106/59; PULSE 73; RESP 11; O2SAT 94
[2019-05-27 12:50] VITALS: BP 135/71; PULSE 79; RESP 18
[2019-05-27 13:20] VITALS: BP 141/76; PULSE 80; RESP 18
--- NOTE | 2019-05-27 13:35 | SUR.PHASEII ---
1330; PT DENIES PAIN OR NAUSEA. WALKED TO BATHROOM. GAIT STEADY. STATES HE IS READY TO GO HOME.
== END 2019-05-27 13:58 | disposition home or self-care (01) ==
PROVIDERS: PCP Registered Nurse; Visit Provider Urology
PROC: (CPT 50590; principal; 2019-05-27 10:30)
DX: N20.0 Calculus of kidney (principal); I10 Essential (primary) hypertension; I25.10 Atherosclerotic heart disease of native coronary artery without angina pectoris; J44.9 Chronic obstructive pulmonary disease, unspecified; E11.51 Type 2 diabetes mellitus with diabetic peripheral angiopathy without gangrene; E78.5 Hyperlipidemia, unspecified; I25.2 Old myocardial infarction; G47.33 Obstructive sleep apnea (adult) (pediatric); L40.9 Psoriasis, unspecified; F41.8 Other specified anxiety disorders; L30.9 Dermatitis, unspecified; K21.9 Gastro-esophageal reflux disease without esophagitis; Z86.73 Personal history of transient ischemic attack (TIA), and cerebral infarction without residual deficits; Z79.84 Long term (current) use of oral hypoglycemic drugs; Z79.01 Long term (current) use of anticoagulants; Z79.82 Long term (current) use of aspirin; Z95.5 Presence of coronary angioplasty implant and graft; F17.210 Nicotine dependence, cigarettes, uncomplicated; E66.01 Morbid (severe) obesity due to excess calories; Z68.42 Body mass index [BMI] 45.0-49.9, adult
CPT/HCPCS: 52332; 50590; 74018; C1769; C1887; C2617; J1100; J2001; J2405; J2704; J3010; J7120

== ENCOUNTER 2019-06-13 10:32 | Outpatient (CLI) | payer MEDICARE, MEDICAID, SELFPAY ==
--- NOTE | ~2019-06-13 | XR_ITS ---
XR abdomen/kub 1V 06/13/2019 10:46 Indication: Bilateral kidney stones Procedure: KUB Comparison: Comparison to multiple prior studies sequentially, with oldest reviewed study dated 07/29. Findings: Bowel gas pattern is nonobstructive. There is a left internal ureteral stent in expected po sition. There are cholecystectomy clips. There are stones in the lower pole of the left kidney. No de finite ureteral stones. Impression: 1: Left nephrolithiasis. Left internal ureteral stent in expected position. Reviewed, dictated and finalized at [facility]. Impression: 1: Left nephrolithiasis. Left internal ureteral stent in expected position.
== END 2019-06-13 10:33 | disposition home or self-care (01) ==
PROVIDERS: PCP Registered Nurse; Visit Provider Urology
DX: N20.0 Calculus of kidney (principal)
CPT/HCPCS: 74018

== ENCOUNTER 2019-06-27 08:34 | Day surgery (SDC) | payer MEDICARE, MEDICAID, SELFPAY ==
[2019-06-27] VITALS (8 sets, daily range): BP systolic 101–151; BP diastolic 60–100; PULSE 75–84; RESP 18–28; TEMP 36.2–36.5; O2SAT 93–100; BMI 97.4
--- NOTE | ~2019-06-27 | CT_ITS ---
EXAMINATION: CT abdomen pelvis wo con DATE: 06/27/2019 09:00 INDICATION: Left flank, left lower quadrant abdominal pain. History of kidney stones. TECHNIQUE: Computed tomography (CT) of the abdomen and pelvis was performed without intravenous contr ast. Automated exposure control and iterative reconstruction technique were employed. Exam dose: 150 1.31 mGy-cm total exam DLP. COMPARISON: None. FINDINGS: Mild atelectasis or scarring at the lung bases. Heart size is within normal range. Coronary artery calcification. Status post cholecystectomy. No hepatic space-occupying mass lesion or bile duct dilatation. Spleen m easures 12 mm height, within upper normal range. No pancreatic mass lesion, calcification or ductal dilatation. Approximately 1.1 and 3.4 cm left adrenal probable myelolipomas. Approximately 1.5 cm right adrenal m yelolipoma.. Prominent staghorn calculus of the lower pole of the left kidney with attenuation of approximately 61 0 Hounsfield units. There are additional smaller nonobstructing calcified stones of the left renal lo wer pole. There is mild left hydroureteronephrosis and perinephric stranding and proximal left hydroureter seco ndary to contiguous approximately 3.3 and 6.6 mm left ureteral calculi at the lower L4 level. There are 2 additional distal left ureteral calculi measuring up to approximately 4-5 mm dimension. T here is minimal if any ureteral dilatation proximal to these calculi. No right urinary tract calculus or hydroureteronephrosis. The urinary bladder is evacuated. There is moderate prostate enlargement; occasional prostate calcifications. There is atherosclerotic calcification of the abdominal aorta but no evidence of aneurysm. Normal appendix. Mild colonic diverticulosis. No CT evidence of diverticulitis. No bowel obstruction, bowel wall thickening, pneumatosis or intraperitoneal free air. Very small fat-containing umbilical hernia. Approximately 1.3 cm osteolytic sclerotic lesion of the left femoral head/neck. Approximately 6.7 mm osteosclerotic focus at the right femoral neck. Prostate metastatic foci are not excluded. Consider radionuclide bone scan as clinically appropriate. Diffuse idiopathic skeletal hyperostosis of the thoracic and upper lumbar spine. IMPRESSION: Approximately 4 left ureteral stones, including 2 proximal and 2 distal stones, with mil d proximal left hydroureteronephrosis Large staghorn calculus and multiple additional smaller calculi of the lower pole of the left kidney Status post cholecystectomy Bilateral adrenal myelolipomas Mild colonic diverticulosis Cannot exclude osteosclerotic metastatic lesions of proximal femurs; consider radionuclide bone scan Reviewed, dictated and finalized at [facility]. Reviewed, dictated and finalized at location [facility]. IMPRESSION: Approximately 4 left ureteral stones, including 2 proximal and 2 d istal stones, with mild proximal left hydroureteronephrosis Large staghorn calculus and multiple additional smaller calculi of the lower po le of the left kidney Status post cholecystectomy Bilateral adrenal myelolipomas Mild colonic diverticulosis Cannot exclude osteosclerotic metastatic lesions of proximal femurs; consider r adionuclide bone scan
--- NOTE | ~2019-06-27 | XR_ITS ---
EXAMINATION: XR retrograde pyelo w/stent LT EXAM DATE: 06/27/2019 12:59 INDICATION: Left stent placement. Left ureteral stones. TECHNIQUE: Fluoroscopy used during XR retrograde pyelo w/stent LT performed by Dr. Russel Werner MD. The DAP for this procedure was 1.1 mGym2. Cine run(s) available for review. FINDINGS: Left ureter was cannulated, injected. There is moderate left-sided hydroureteronephrosis. There is large filling defect in the left renal pelvis, a kidney stone. A left-sided double-J uretera l stent was placed. Correlate with procedure note. IMPRESSION: Fluoroscopy used during XR retrograde pyelo w/stent LT. Reviewed, dictated and finalized at location [facility].
--- NOTE | 2019-06-27 08:50 | PC.NURSE ---
Pt had recent Kidney stone that was blasted but this morning was awaken in pain to L flank. Pt states he is having problems urinating and having BM. Pt states he has been nauseated. Pt is having pain with movement. Pt appears uncomfortable. Pt aware of POC.
[2019-06-27 08:59] LABS: Basophils Percent Auto 0.2 % (0.2-1.2); Eosinophils Absolute Auto 0.2 K/mm3 (0-0.3); Eosinophils Percent Auto 2.5 % (0-4.4); Hematocrit 40.8 % (42.0-52.0); Hemoglobin 13.9 g/dL (14.0-18.0); Immature Granulocyte Absolute 0.03 K/mm3 (0.00-0.031); Immature Granulocyte Percent A 0.3 % (0-0.5); Lymphocytes Absolute Auto 1.49 K/mm3 (0.9-3.2); Lymphocytes Percent Auto 15.5 % (18.3-44.2); Mean Corpuscular HGB Conc 34.1 g/dl (32-36); Mean Corpuscular Hemoglobin 30.5 pg (26-34); Mean Corpuscular Volume 89.5 fl (80-100); Mean Platelet Volume 12.4 fl (7.4-10.4); Monocytes Absolute Auto 0.9 K/mm3 (0.1-0.6); Monocytes Percent Auto 9.7 % (2.6-8.5); Neutrophils Absolute Auto 6.9 K/mm3 (1.3-6.7); Neutrophils Percent Auto 71.8 % (45.5-73.1); Platelet Count Result 160 k/mm3 (150-375); Red Blood Count 4.56 M/mm3 (4.6-6.20); Red Cell Distribution Width 13.6 % (11.5-14.5); White Blood Count 9.6 K/mm3 (4.5-10.0)
[2019-06-27 09:06] LABS: Add Urine Microscopic? YES; Appearance Urine Clear (Clear); Bacteria Urine Trace /hpf; Bilirubin Urine Negative (Negative); Blood Urine 3+ (Negative); Color Urine Yellow (Yellow); Glucose Urine UA Negative (Negative); Ketones Urine Negative (Negative); Leukocyte Esterase Ur Negative LEU/UL (Negative); Mucus Urine Heavy /lpf; Nitrate Urine Negative (Negative); Protein Urine 2+ mg/dL (Negative); RBC Urine >75 /hpf (0-2); Specific Grav Ur 1.026 (1.001-1.035); Squamous Epithelial Cell Urine Rare /hpf (Few); WBC Urine 0-3 /hpf
[2019-06-27] MEDS: SODIUM CHLORIDE 0.9% IV 1,000 ML 999 ML IV CONT (09:09)
[2019-06-27] MEDS: ONDANSETRON INJ 4 MG/2 ML VIAL IV PUSH (09:09)
[2019-06-27] MEDS: MORPHINE SULFATE 4 MG/ML INJ IV PUSH ×2 (09:09→10:13)
[2019-06-27 09:14] LABS: Blood Urea Nitrogen 16 mg/dL (9-20); Calcium 9.4 mg/dL (8.4-10.2); Carbon Dioxide 26 mmol/L (22-30); Chloride 102 mmol/L (98-107); Estimated CRCL calculation 115 ml/min; Estimated Glomerular Filt Rate > 60; Glucose 176 mg/dL (75-110); Potassium 4.3 mmol/L (3.4-5.0); Sodium 136 mmol/L (137-145)
--- NOTE | 2019-06-27 09:22 | ED.ABDPAIN ---
HPI - Abdominal Pain General Chief Complaint: Urogenital-Male Stated Complaint: left flank pain Time Seen by Provider: 06/27/19 08:36 History of Present Illness HPI narrative: Patient is a 59-year-old male who presents ER with sudden onset left abdominal pain. Began at 4:30 in the morning. Similar to previous kidney stones. Recently had lithotripsy and a ureteral stent placed. Ureteral stent was removed 2 weeks ago. He has not been having any issues till this morning. Pain waxes and wanes in intensity. It is nonradiating. It is associated with the sensation that he needs to urinate but he is unable to urinate. No hematuria/fever. He is also having nausea and vomiting. No alleviating factors Related Data Home Medications Medication Instructions Recorded Confirmed Breo Ellipta 1 inh INHALATION DAILY 01/24/19 05/16/19 Trulicity 1.5 mg SUBCUT WEEKLY 01/24/19 05/16/19 Xarelto 2.5 mg PO BID 01/24/19 05/16/19 amlodipine 10 mg PO DAILY 01/24/19 05/16/19 bupropion HCl 150 mg PO BID 01/24/19 05/16/19 doxazosin 2 mg PO HS 01/24/19 05/16/19 losartan 100 mg PO HS 01/24/19 05/16/19 metformin 1,000 mg PO BID 01/24/19 05/16/19 ciclopirox 8 % topical solution 1 applic TOPICAL DAILY PRN 04/13/19 05/16/19 nitroglycerin 0.4 mg sublingual 0.4 mg SUBLINGUAL Q5M PRN 04/13/19 05/16/19 tablet omeprazole 40 mg capsule,delayed 40 mg PO DAILY 04/13/19 05/16/19 release potassium chloride 20 mEq 20 meq PO DAILY 04/13/19 05/16/19 tablet,extended release albuterol sulfate [Ventolin HFA] 2 puff INHALATION DIRECTED PRN 04/28/19 05/16/19 carvedilol [Coreg] 25 mg PO BID 04/28/19 05/16/19 isosorbide mononitrate 30 mg PO HS 04/28/19 05/16/19 Combivent Respimat 2 puff INHALATION PRN PRN 05/16/19 05/16/19 atorvastatin 80 mg PO HS 05/16/19 05/16/19 Allergies Allergy/AdvReac Type Severity Reaction Status Date / Time No Known Allergies Allergy Unknown Verified 06/27/19 08:42 Review of Systems Review of Systems: All systems reviewed & are unremarkable except as noted in HPI and below Constitutional: Constitutional: Denies chills, Denies fever(s) and Denies weakness Gastrointestinal: Gastrointestinal: Reports abdominal pain, Reports constipation, Denies diarrhea, Reports nausea and Reports vomiting Genitourinary: Genitourinary: Denies hematuria, Reports oliguria, Denies dysuria and Reports urinary frequency [facility] Social History Social History Social History: The patient is and has no children. Rena Dodd is his durable power biofuels research scientist for healthcare with whom he lives as a roommate. He is a full code. He does smoke 3 cigarettes per day currently. No current alcohol use. 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 HEAD: Normocephalic, atraumatic. ENT: Mucous membranes moist. CHEST: Clear to auscultation. No respiratory distress. HEART: Regular rate and rhythm. Normal peripheral pulses. ABDOMEN: Soft, TTP LLQ w/o guarding, nondistended, no CVA tenderness. EXTREMITIES: Normal range of motion. No edema. SKIN: Warm, dry, no rash. NEURO: Alert and oriented x3. Course Reevaluation(s) Reevaluation #1: Patient informed of results. Discussed with urology. Will go to the OR for stent at noon. Patient is more comfortable after second dose of morphine. Date: 06/27/19 Time: 10:27 Vital Signs Vital signs: Vital Signs Temperature 97.7 F 06/27/19 08:3
--- NOTE | 2019-06-27 10:51 | WPDANESEPPF ---
Anes - Initial Pre Proc Eval Procedure: Operation Date: 06/27/19 12:00 Proposed Procedures p Cystoscopy, Left Ureteral Stent Placement(Left) - Russel Werner MD Date/Time: 06/27/19 10:51 Surgeon: Russel Werner MD Pre Op Diagnosis: left flank pain Patient Data Age: 59 Gender: M Height: 6 ft Weight: 147.87 kg Last Vital Signs Temp 36.5 C 06/27/19 08:37 Pulse 84 06/27/19 08:37 Resp 18 06/27/19 08:37 BP 151/100 H 06/27/19 08:37 Pulse Ox 96 06/27/19 08:37 Allergies Allergy/AdvReac Type Severity Reaction Status Date / Time No Known Allergies Allergy Unknown Verified 06/27/19 08:42 Home Medications Medication Instructions Recorded Confirmed Type Breo Ellipta 1 inh INHALATION DAILY 01/24/19 05/16/19 History Trulicity 1.5 mg SUBCUT WEEKLY 01/24/19 05/16/19 History Xarelto 2.5 mg PO BID 01/24/19 05/16/19 History amlodipine 10 mg PO DAILY 01/24/19 05/16/19 History bupropion HCl 150 mg PO BID 01/24/19 05/16/19 History doxazosin 2 mg PO HS 01/24/19 05/16/19 History losartan 100 mg PO HS 01/24/19 05/16/19 History metformin 1,000 mg PO BID 01/24/19 05/16/19 History aspirin [Children's Aspirin] 81 mg PO DAILY@0800 #30 tablet 03/13/19 05/16/19 Rx cyanocobalamin (vitamin B-12) 1,000 mcg PO QAM #30 tablet 03/13/19 05/16/19 Rx [Vitamin B-12] furosemide 40 mg PO DAILY #30 tablet 03/13/19 05/16/19 Rx ciclopirox 8 % topical solution 1 applic TOPICAL DAILY PRN 04/13/19 05/16/19 History nitroglycerin 0.4 mg sublingual 0.4 mg SUBLINGUAL Q5M PRN 04/13/19 05/16/19 History tablet omeprazole 40 mg capsule,delayed 40 mg PO DAILY 04/13/19 05/16/19 History release potassium chloride 20 mEq 20 meq PO DAILY 04/13/19 05/16/19 History tablet,extended release albuterol sulfate [Ventolin HFA] 2 puff INHALATION DIRECTED PRN 04/28/19 05/16/19 History carvedilol [Coreg] 25 mg PO BID 04/28/19 05/16/19 History isosorbide mononitrate 30 mg PO HS 04/28/19 05/16/19 History Combivent Respimat 2 puff INHALATION PRN PRN 05/16/19 05/16/19 History atorvastatin 80 mg PO HS 05/16/19 05/16/19 History ciprofloxacin HCl 500 mg PO Q12H #10 tablet 05/27/19 Rx hydrocodone-acetaminophen 1 - 2 tablet PO Q6H PRN #20 tablet 05/27/19 Rx Laboratory Tests 06/27/19 06/27/19 06/27/19 08:53 08:53 08:54 WBC 9.6 K/mm3 K/mm3 (4.5-10.0) RBC 4.56 M/mm3 L M/mm3 (4.6-6.20) Hgb 13.9 g/dL L g/dL (14.0-18.0) Hct 40.8 % L % (42.0-52.0) MCV 89.5 fl fl (80-100) MCH 30.5 pg pg (26-34) MCHC 34.1 g/dl g/dl (32-36) RDW 13.6 % % (11.5-14.5) Plt Count 160 k/mm3 k/mm3 (150-375) MPV 12.4 fl H fl (7.4-10.4) Immature Gran % (Auto) 0.3 % % (0-0.5) Neut % (Auto) 71.8 % % (45.5-73.1) Lymph % (Auto) 15.5 % L % (18.3-44.2) [place] % (Auto) 9.7 % H % (2.6-8.5) Eos % (Auto) 2.5 % % (0-4.4) Baso % (Auto) 0.2 % % (0.2-1.2) Lymph # (Auto) 1.49 K/mm3 K/mm3 (0.9-3.2) [place] # (Auto) 0.9 K/mm3 H K/mm3 (0.1-0.6) Eos # (Auto) 0.2 K/mm3 K/mm3 (0-0.3) Baso # (Auto) 0.0 K/mm3 K/mm3 (0.0-0.1) Abs Immat Gran (auto) 0.03 K/mm3 K/mm3 (0.00-0.031) Absolute Neuts (auto) 6.9 K/mm3 H K/mm3 (1.3-6.7) Absolute Nucleated RBC 0.0 K/mm3 K/mm3 (0.0-0.012) Nucleated RBC % 0.0 % % (0.0-0.2) Sodium 136 mmol/L L mmol/L (137-145) Potassium 4.3 mmol/L mmol/L (3.4-5.0) Chloride 102 mmol/L mmol/L (98-107) Carbon Dioxide 26 mmol/L mmol/L (22-30) BUN 16 mg/dL mg/dL (9-20) Creatinine 0.90 mg/dL mg/dL (0.7-1.3) Estim Creat Clear Calc 115 ml/min ml/min Estimated GFR > 60 (59 - ) Glucose 176 mg/dL H mg/dL (75-110) Calcium 9.4 mg/dL mg/dL (8.4-10.2) Urine Color Yellow (Yellow) Urine A
[2019-06-27] MEDS: LACTATED RINGERS 1,000 ML 30 ML IV CONT (10:55)
--- NOTE | 2019-06-27 12:04 | WPDURCON ---
Assessment and Plan Assessment and plan (1) Left ureteral stone: Code(s): N20.1 - Calculus of ureter Status: Acute Assessment and Plan: I will take him to the operating room today for cystoscopy and left ureteral stent placement. He understands the risks of bleeding, infection, damage to the ureter, inability to place the stent. He understands I will not be taking care of his ureteral stones at this time. He will need definitive stone management months he is off anticoagulation. (2) Left renal stone: Code(s): N20.0 - Calculus of kidney Status: Acute Assessment and Plan: Definitive stone management to follow. (3) Hydronephrosis: Code(s): N13.30 - Unspecified hydronephrosis Status: Acute Assessment and Plan: Due to ureteral stone. Stent will be placed today. Urology Consult Note HPI Date Seen: 06/27/19 Requesting Physician: Russel Werner MD Primary Care Provider: Sandi Alfaro, TUBE MILL OPERATOR Consult Narrative Narrative: Vini Zambrano is a 59 year old male. He is being seen at the request of the emergency room at [facility]. He has history of stone disease. He is taken care of by my partner Dr. Ezekiel Blanton. He is on chronic anticoagulation. In late April underwent a left lithotripsy for a large kidney stone. A stent was left in place. He came to the office 2 weeks ago where his stent was removed. He had known stone burden in his left kidney but it was decided to observe. He woke up at 4:00 a.m. this morning for intense left-sided abdominal pain with nausea. No vomiting. No fevers or chills. No dysuria or symptoms of urinary tract infection. He came to [facility]. He had a CT scan which showed for ureteral stones. He has since passed 1 but is and still has discomfort. He presents today for left stent with definitive stone management to follow. Review of Systems Review of Systems: All systems reviewed & are unremarkable except as noted in HPI and below Constitutional: Constitutional: Denies chills Cardiovascular: Cardiovascular: Denies chest pain Respiratory: Respiratory: Reports no additional respiratory complaints PMFSH Social History Social History Social History: The patient is and has no children. Rena Dodd is his durable power mud jack operator for healthcare with whom he lives as a roommate. He is a full code. He does smoke 3 cigarettes per day currently. No current alcohol use. 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 Gender identity (if verbalized by the patient): Male Spiritual care concerns: No Agree to blood products: Yes Meds Home Medications and Allergies Home Medications Medication Instructions Recorded Confirmed Type Breo Ellipta 1 inh INHALATION DAILY 01/24/19 05/16/19 History Trulicity 1.5 mg SUBCUT WEEKLY 01/24/19 05/16/19 History Xarelto 2.5 mg PO BID 01/24/19 05/16/19 History amlodipine 10 mg PO DAILY 01/24/19 05/16/19 History bupropion HCl 150 mg PO BID 01/24/19 05/16/19 History doxazosin 2 mg PO HS 01/24/19 05/16/19 History losartan 100 mg PO HS 01/24/19 05/16/19 History metformin 1,000 mg PO BID 01/24/19 05/16/19 History aspirin [Children's Aspirin] 81 mg PO DAILY@0800 #30 tablet 03/13/19 05/16/19 Rx cyanocobalamin (vitamin B-12) 1,000 mcg PO QAM #30 tablet 03/13/19 05/16/19 Rx [Vitamin B-12] furosemide 40 mg PO DAILY #30 tablet 03/13/19 05/16/19 Rx ciclopirox 8 % topical solution 1 applic TOPICAL DAILY PRN 04/13/19 05/16/19 History nitroglycerin 0.4 mg sublingual 0.4 mg SUBLINGUAL Q5M PRN 04/13/19 05/16/19 History tabl
[2019-06-27] MEDS: LIDOCAINE HCL 2% GEL UROJET 10 ML PKG MUCOUS MEM (12:49)
--- NOTE | 2019-06-27 12:56 | PM.PROC ---
Procedure Note - Detailed Date of procedure: 06/27/19 Pre-op diagnosis: left flank pain Left ureteral stones. Left hydronephrosis Post-op diagnosis: same Procedure performed: Cystoscopy, left retrograde pyelogram, left ureteral stent placement. Description of procedure: He was correctly identified and informed consent obtained. He is brought to the operating room. He was given general anesthesia. He was prepped and draped in a sterile fashion. Time-out performed. Cystoscopy revealed a very high bladder neck. No other bladder abnormalities. Small stones were seen coming from the ureteral orifice. I did a gentle retrograde pyelogram on the left. There was left hydronephrosis. There is a large filling defect in left renal pelvis consistent with staghorn stone. I placed a guidewire into the upper pole the kidney. I then placed a 4.8 variable length stent. I could feel stones going by the stent as I advanced it into the ureter. Multiple small stones were seen coming down the ureter. There was a coil in the renal pelvis. I left the distal coil in the bladder. The bladder was drained. He was awakened and transferred to the PACU in stable condition. Implants: 4.8 variable length stent Anesthesia: GLMA Surgeon: Russel Werner MD Estimated blood loss (mL): 0 Drains: Yes (Ureteral stent) Packing: No Pathology: none sent Complications: No immediate complications Condition: stable Disposition: PACU
--- NOTE | 2019-06-27 13:18 | SUR.OPER ---
EBL:0cc
[2019-06-27 13:25] LABS: Glucose Point of Care 145 (65-105)
== END 2019-06-27 14:41 | disposition home or self-care (01) ==
LOC: ANHED 10:31 → ANHSURGERY 10:36
PROVIDERS: Emergency Provider Emergency Medicine; PCP Registered Nurse; Visit Provider Urology
PROC: (CPT 52352; principal; 2019-06-27 12:00)
DX: N13.2 Hydronephrosis with renal and ureteral calculous obstruction (principal); F17.210 Nicotine dependence, cigarettes, uncomplicated; Z79.01 Long term (current) use of anticoagulants; Z79.84 Long term (current) use of oral hypoglycemic drugs; E66.01 Morbid (severe) obesity due to excess calories; Z68.45 Body mass index [BMI] 70 or greater, adult; Z86.73 Personal history of transient ischemic attack (TIA), and cerebral infarction without residual deficits; Z79.82 Long term (current) use of aspirin
CPT/HCPCS: 52332; 36415; 74176; 74420; 80048; 81001; 85025; A9270; C1758; C1769; C2617; J1100; J1956; J2001; J2270; J2405; J2704; J3010; J7030; J7120

== ENCOUNTER 2019-07-07 16:16 | Emergency (ER) | payer MEDICARE, MEDICAID, SELFPAY ==
--- NOTE | ~2019-07-07 | XR_ITS ---
EXAMINATION: XR abdomen/kub 1V EXAM DATE: 07/07/2019 18:39 INDICATION: Left flank pain, left ureterolithiasis. TECHNIQUE: Frontal projection(s) of the abdomen for interpretation. Comparison is made to prior exami nation from 06/13/2019. FINDINGS: There is a left double-J ureteral stent in expected position unchanged. Difficult to ident sanjuana ureteral stone or kidney stone. Cholecystectomy clips. Linear right basilar atelectasis. Nonobstr uctive bowel gas pattern. There are mild bony degenerative changes. IMPRESSION: Left double-J ureteral stent in expected position. Reviewed, dictated and finalized at location [facility].
[2019-07-07 16:18] VITALS: BP 124/72; PULSE 80; RESP 16; TEMP 36.6; O2SAT 96
[2019-07-07 16:55] LABS: Basophils Percent Auto 0.2 % (0.2-1.2); Eosinophils Absolute Auto 0.3 K/mm3 (0-0.3); Eosinophils Percent Auto 3.1 % (0-4.4); Hematocrit 41.2 % (42.0-52.0); Hemoglobin 14.1 g/dL (14.0-18.0); Immature Granulocyte Absolute 0.02 K/mm3 (0.00-0.031); Immature Granulocyte Percent A 0.2 % (0-0.5); Lymphocytes Absolute Auto 1.44 K/mm3 (0.9-3.2); Lymphocytes Percent Auto 16.3 % (18.3-44.2); Mean Corpuscular HGB Conc 34.2 g/dl (32-36); Mean Corpuscular Hemoglobin 30.3 pg (26-34); Mean Corpuscular Volume 88.6 fl (80-100); Monocytes Absolute Auto 0.7 K/mm3 (0.1-0.6); Monocytes Percent Auto 8.4 % (2.6-8.5); Neutrophils Absolute Auto 6.3 K/mm3 (1.3-6.7); Neutrophils Percent Auto 71.8 % (45.5-73.1); Platelet Count Result 156 k/mm3 (150-375); Red Blood Count 4.65 M/mm3 (4.6-6.20); Red Cell Distribution Width 13.4 % (11.5-14.5); White Blood Count 8.8 K/mm3 (4.5-10.0)
[2019-07-07 17:10] LABS: Add Urine Microscopic? YES; Appearance Urine Cloudy (Clear); Bilirubin Urine Negative (Negative); Blood Urine 3+ (Negative); Color Urine Yellow (Yellow); Glucose Urine UA 1+ mg/dL (Negative); Ketones Urine Trace mg/dL (Negative); Leukocyte Esterase Ur Negative LEU/UL (Negative); Mucus Urine Heavy /lpf; Nitrate Urine Positive (Negative); Protein Urine 2+ mg/dL (Negative); RBC Urine >75 /hpf (0-2); Specific Grav Ur 1.025 (1.001-1.035); Urobilinogen Urine Negative mg/dL (<2.0)
[2019-07-07 17:15] LABS: Blood Urea Nitrogen 15 mg/dL (9-20); Calcium 9.4 mg/dL (8.4-10.2); Carbon Dioxide 24 mmol/L (22-30); Chloride 101 mmol/L (98-107); Estimated CRCL calculation 95 ml/min; Estimated Glomerular Filt Rate > 60; Glucose 137 mg/dL (75-110); Potassium 4.4 mmol/L (3.4-5.0); Sodium 135 mmol/L (137-145)
[2019-07-07] MEDS: ONDANSETRON INJ 4 MG/2 ML VIAL IV PUSH (18:20)
[2019-07-07] MEDS: MORPHINE SULFATE 4 MG/ML INJ IV PUSH (18:20)
--- NOTE | 2019-07-07 19:40 | ED.BACK ---
HPI - Back Pain/Injury General Chief Complaint: Urogenital-Male <Alexandra Saleem PA-C - Last Filed: 07/07/19 20:33> Stated Complaint: L FLANK PAIN, HX STONES <SURESH Patel Last Filed: 07/07/19 20:33> Time Seen by Provider: 07/07/19 17:44 <Alexandra Saleem PA-C - Last Filed: 07/07/19 20:33> Source: patient <SURESH Patel Last Filed: 07/07/19 20:33> Mode of arrival: ambulatory <SURESH Patel Last Filed: 07/07/19 20:33> Limitations: no limitations <SURESH Patel Last Filed: 07/07/19 20:33> History of Present Illness HPI Narrative: This is a 59 year old male that presents to the ER for left flank pain x 3 hours. Reports he has known stones in the left ureter and had a stent placed in the end of last month. Reports he is scheduled for a lithotripsy next week. Denies fever, abdominal pain, vomiting, dysuria or hematuria. <Alexandra Saleem PA-C - Last Filed: 07/07/19 20:33> Related Data Home Medications: Home Medications Medication Instructions Recorded Confirmed Breo Ellipta 1 inh INHALATION DAILY 01/24/19 05/16/19 Trulicity 1.5 mg SUBCUT WEEKLY 01/24/19 05/16/19 Xarelto 2.5 mg PO BID 01/24/19 05/16/19 amlodipine 10 mg PO DAILY 01/24/19 05/16/19 bupropion HCl 150 mg PO BID 01/24/19 05/16/19 doxazosin 2 mg PO HS 01/24/19 05/16/19 losartan 100 mg PO HS 01/24/19 05/16/19 metformin 1,000 mg PO BID 01/24/19 05/16/19 ciclopirox 8 % topical solution 1 applic TOPICAL DAILY PRN 04/13/19 05/16/19 nitroglycerin 0.4 mg sublingual 0.4 mg SUBLINGUAL Q5M PRN 04/13/19 05/16/19 tablet omeprazole 40 mg capsule,delayed 40 mg PO DAILY 04/13/19 05/16/19 release potassium chloride 20 mEq 20 meq PO DAILY 04/13/19 05/16/19 tablet,extended release albuterol sulfate [Ventolin HFA] 2 puff INHALATION DIRECTED PRN 04/28/19 05/16/19 carvedilol [Coreg] 25 mg PO BID 04/28/19 05/16/19 isosorbide mononitrate 30 mg PO HS 04/28/19 05/16/19 Combivent Respimat 2 puff INHALATION PRN PRN 05/16/19 05/16/19 atorvastatin 80 mg PO HS 05/16/19 05/16/19 <Alexandra Saleem PA-C - Last Filed: 07/07/19 20:33> Allergies/Adverse Reactions: Allergies Allergy/AdvReac Type Severity Reaction Status Date / Time No Known Allergies Allergy Unknown Verified 07/07/19 17:33 <Alexandra Saleem PA-C - Last Filed: 07/07/19 20:33> Review of Systems Review of Systems: Narrative: CONSTITUTIONAL: Denies fever GASTROINTESTINAL: Denies abdominal pain, nausea, vomiting GENITOURINARY: Denies dysuria or hematuria. MUSCULOSKELETAL: Reports back pain <Alexandra Saleem PA-C - Last Filed: 07/07/19 20:33> All systems reviewed & are unremarkable except as noted in HPI and below <Alexandra Saleem PA-C - Last Filed: 07/07/19 20:33> [facility] Social History Social History: Social History Social History: The patient is and has no children. Rena Dodd is his durable power ip technology transactions attorney for healthcare with whom he lives as a roommate. He is a full code. He does smoke 3 cigarettes per day currently. No current alcohol use. 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 HEAD: Normocephalic, atraumatic. EYES: EOMI. CHEST: Clear to auscultation. No respiratory distress. No wheezes rales or rhonchi HEART: Regular rate and rhythm. No murmur heard. Normal periph
[2019-07-07 20:37] VITALS: BP 136/83; PULSE 73; RESP 18; O2SAT 95
== END 2019-07-07 20:44 | disposition home or self-care (01) ==
PROVIDERS: Emergency Medicine; Emergency Provider Emergency Medicine; PCP Registered Nurse
DX: N20.1 Calculus of ureter (principal); Z96.0 Presence of urogenital implants; F17.210 Nicotine dependence, cigarettes, uncomplicated
CPT/HCPCS: 36415; 74018; 80048; 81001; 85025; 87086; 96365; 96367; 96375; 99284; J0131; J0696; J2270; J2405

== ENCOUNTER 2019-07-12 05:26 | Outpatient (CLI) | payer MEDICARE, MEDICAID, SELFPAY ==
[2019-07-12 18:35] LABS: SARS-CoV-2 RNA PCR Negative
== END 2019-07-12 05:27 | disposition home or self-care (01) ==
LOC: ANHCOVIDDT 05:29
PROVIDERS: PCP Registered Nurse; Visit Provider Urology
DX: Z01.818 Encounter for other preprocedural examination (principal); Z11.59 Encounter for screening for other viral diseases
CPT/HCPCS: 36415; 85610; 85730; 87635; C9803; U0003

== ENCOUNTER 2019-07-12 08:32 | Outpatient (CLI) | payer MEDICARE, MEDICAID, SELFPAY ==
[2019-07-12 08:59] LABS: INR 1.1; Prothrombin Time 13.5 Seconds (11.1-14.7)
[2019-07-12 09:00] LABS: Partial Thromboplastin Time 32.3 SECONDS (22.3-36.8)
== END 2019-07-12 08:33 | disposition home or self-care (01) ==
PROVIDERS: PCP Registered Nurse; Visit Provider Urology
DX: I25.10 Atherosclerotic heart disease of native coronary artery without angina pectoris (principal); I50.9 Heart failure, unspecified
CPT/HCPCS: 36415; 85610; 85730

== ENCOUNTER 2019-07-14 01:46 | Day surgery (SDC) | payer MEDICARE, MEDICAID, SELFPAY ==
[2019-07-11 15:37] VITALS: BMI 43.9
--- NOTE | ~2019-07-14 | XR_ITS ---
XR abdomen/kub 1V DATE: 07/14/2019 08:39 INDICATION: Preoperative evaluation for lithotripsy. Left ureterolithiasis TECHNIQUE: AP projection, 2 views COMPARISON: 07/07/[address] [facility] [address] abdomen pelvis FINDINGS: Very faintly calcified large staghorn calculus of the lower pole left kidney is noted. Ther e additional urinary tract stones would be difficult to exclude considering the low density of the st aghorn calculus at the lower pole of the left kidney. Left internal urinary stent is present, the proximal pigtail formed and situated at the upper pole of the left kidney, the distal pigtail formed in the urinary bladder. Surgical clips, right upper quadrant, consistent with cholecystectomy. The psoas shadows are intact. No visceromegaly is noted. No evidence of bowel obstruction. Diffuse idiopathic skeletal hyperostosis of the thoracic and upper lumbar spine IMPRESSION: Large faintly calcified lower pole left renal staghorn calculus Left internal urinary stent Status post cholecystectomy. Reviewed, dictated and finalized at [facility]. Reviewed, dictated and finalized at [facility].
--- NOTE | 2019-07-14 07:05 | WPDHPUPDATE1 ---
History and Physical Update Update Date/Time: 07/14/19 07:05 History and Physical has been reviewed, including an updated exam of the patient. There are NO changes in the patient's condition. Risks, benefits, and alternatives have been discussed and questions answered. Patient agrees to proceed with procedure.
[2019-07-14] MEDS: LACTATED RINGERS 1,000 ML 30 ML IV CONT (09:10)
[2019-07-14 09:18] VITALS: BP 117/62; PULSE 70; RESP 18; TEMP 36.3; O2SAT 98
--- NOTE | 2019-07-14 09:23 | WPDANESEPPF ---
Anes - Initial Pre Proc Eval Procedure: Operation Date: 07/14/19 10:30 Proposed Procedures p Cystoscopy, Left Ureteroscopy, Left Ureteral And Left Renal Extracorporeal Shock Wave Lithotripsy - Prakash Blanton MD Date/Time: 07/14/19 09:23 Surgeon: Prakash Blanton MD Pre Op Diagnosis: Left Ureteral And Renal Stone Patient Data Age: 59 Gender: M Height: 6 ft Weight: 151.2 kg Last Vital Signs Temp 36.3 C L 07/14/19 09:18 Pulse 70 07/14/19 09:18 Resp 18 07/14/19 09:18 BP 117/62 07/14/19 09:18 Pulse Ox 98 07/14/19 09:18 Allergies Allergy/AdvReac Type Severity Reaction Status Date / Time No Known Allergies Allergy Unknown Verified 07/14/19 08:45 Home Medications Medication Instructions Recorded Confirmed Type Breo Ellipta 1 inh INHALATION DAILY 01/24/19 07/14/19 History Trulicity 1.5 mg SUBCUT WEEKLY 01/24/19 07/14/19 History Xarelto 2.5 mg PO BID 01/24/19 07/14/19 History amlodipine 10 mg PO DAILY 01/24/19 07/14/19 History bupropion HCl 150 mg PO BID 01/24/19 07/14/19 History doxazosin 2 mg PO HS 01/24/19 07/14/19 History losartan 100 mg PO HS 01/24/19 07/14/19 History metformin 1,000 mg PO BID 01/24/19 07/14/19 History aspirin [Children's Aspirin] 81 mg PO DAILY@0800 #30 tablet 03/13/19 07/14/19 Rx cyanocobalamin (vitamin B-12) 1,000 mcg PO QAM #30 tablet 03/13/19 07/14/19 Rx [Vitamin B-12] furosemide 40 mg PO DAILY #30 tablet 03/13/19 07/14/19 Rx ciclopirox 8 % topical solution 1 applic TOPICAL DAILY PRN 04/13/19 07/11/19 History nitroglycerin 0.4 mg sublingual 0.4 mg SUBLINGUAL Q5M PRN 04/13/19 07/11/19 History tablet omeprazole 40 mg capsule,delayed 40 mg PO DAILY 04/13/19 07/14/19 History release potassium chloride 20 mEq 20 meq PO DAILY 04/13/19 07/14/19 History tablet,extended release albuterol sulfate [Ventolin HFA] 2 puff INHALATION DIRECTED PRN 04/28/19 07/11/19 History carvedilol [Coreg] 25 mg PO BID 04/28/19 07/14/19 History isosorbide mononitrate 30 mg PO HS 04/28/19 07/14/19 History Combivent Respimat 2 puff INHALATION PRN PRN 05/16/19 07/14/19 History atorvastatin 80 mg PO HS 05/16/19 07/14/19 History oxybutynin chloride 5 mg PO TID #60 tablet 06/27/19 07/14/19 Rx phenazopyridine [Pyridium] 200 mg PO TID PRN #30 tablet 06/27/19 07/11/19 Rx oxycodone-acetaminophen 1 tablet PO Q6H PRN #10 tablet 07/07/19 07/14/19 Rx Patient hx anesthesia problems: none Family hx anesthesia problems: none PMFSH Social History Social History Social History: The patient is and has no children. Rena Dodd is his durable power teradata architect for healthcare with whom he lives as a roommate. He is a full code. He does smoke 3 cigarettes per day currently. No current alcohol use. 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 Gender identity (if verbalized by the patient): Male Spiritual care concerns: No Agree to blood products: Yes Anes - Eval Final PreProcedure Day of Procedure 07/14/19 09:23 Patient weight: morbidly obese Heart: regular rate and rhythm Lungs: decreased breath sounds Airway: Mallampati scale class II Neurological: alert and oriented Last oral intake: >/= 8 hours ASA classification: IV Emergent: no Anesthetic plan: proceed Anesthesia type and monitoring: general LMA and standard monitoring Informed Consent: The patient's anesthetic plan and its attendant risks and benefits were discussed with the patient/family/POA. Questions were solicited and answers provided to the satisfaction of the patient/family/POA.
[2019-07-14] MEDS: ceFAZolin 3 GM/D5W 100 ML 100 ML IVPB (10:15)
[2019-07-14] MEDS: LIDOCAINE HCL 2% GEL UROJET 10 ML PKG MUCOUS MEM (10:33)
[2019-07-14 11:57] VITALS: BP 105/64; PULSE 88; RESP 28; TEMP 36.5; O2SAT 94
--- NOTE | 2019-07-14 12:08 | PM.PROC ---
Procedure Note - Detailed Date of procedure: 07/14/19 Pre-op diagnosis: Left Ureteral And Renal Stone Post-op diagnosis: same Procedure performed: 1. Cystoscopy, left retrograde pyelography. 2. Left ureteroscopy with stone extraction. 3. Left ESWL. 4. Left ureteral stent removal and replacement. Implants: 4.8F left ureteral stent Anesthesia: GLMA Surgeon: Prakash Blanton MD Estimated blood loss (mL): 0 Drains: Yes (4.8F left ureteral stent) Packing: No Pathology: yes (Left ureteral stones) Complications: No immediate complications Condition: stable Disposition: PACU
[2019-07-14 12:09] LABS: Glucose Point of Care 191 (65-105)
--- NOTE | 2019-07-14 12:13 | P.OP_ITS ---
Procedure Note - Detailed Date of procedure: 07/14/19 Pre-op diagnosis: Left Ureteral And Renal Stone Post-op diagnosis: same Procedure performed: 1. Cystoscopy, left retrograde pyelography. 2. Left ureteroscopy with stone extraction. 3. Left ESWL. 4. Left stent removal and replacement. Description of procedure: The patient was brought to the operative suite where he is prepped and draped in a routine sterile fashion while in the dorsal lithotomy position after the uneventful induction of a general LMA anesthetic. A 19F rigid cystoscope was placed in the bladder and the indwelling stent is removed. There are no urethral strictures. His prostatic urethra measures, approximately, 2.0cm with moderate median lobe enlargement. The bladder mucosa was endoscopically normal without hyperemia or neoplasm. There was a single, o rthotopic ureteral orifice bilaterally. A 0.035 glidewire was advanced into thet renal pelvis under fluoroscopy. The distal ureter was dilated with an 8F/10F ureteral dilator. Ureteroscopy was undertaken with a both a short tapered semi-rigid and a 7.5F flexible ureteroscope. With ureteroscopy I was able to extract several stones in the left mid-distal ureter using a 1.9F Escape disposable stone basket. Using retrograde pyelography thru an angiographic catheter we clearly localized his large, 1cm left renal calculus and delivered 2500 shocks at a power setting up to 8 using the Dornier lithotripto. Due to the extent of this manipulation I did replace a 4.8F double-J ureteral stent. The proximal coil of the stent was confirmed to be in the renal pelvis and the distal coil in the bladder. The patient's bladder was emptied and he was taken to the recovery room having tolerated this procedure well. Anesthesia: GLMA Surgeon: Prakash Blanton MD Estimated blood loss (mL): 0 Drains: Yes (4.8F left ureteral stent) Packing: No Pathology: yes Complications: No immediate complications Condition: stable Disposition: PACU
--- NOTE | 2019-07-14 12:14 | SUR.PHASEI ---
1157; PT INTO PACU ON STRETCHER. PT TRYING TO GET OUT OF BED. PT YELLING. DISORIENTED. ATTEMPTING TO ORIENT PT TO PACU. SEVERAL STAFF MEMBERS KEEPING PT ON STRETCHER. 1200; PT ASSISTED TO SITTING POSITION ON STRETCHER. O2 SIMPLE MASK REMOVED PER PT. PLACED ON O2 3L NC. 1215; PT AWAKE AND ALERT. COHERENT NOW.
[2019-07-14 12:15] VITALS: BP 100/67; PULSE 79; RESP 16; O2SAT 94
--- NOTE | 2019-07-14 12:24 | SUR.PHASEI ---
1224; PT AWAKE AND ALERT. CALM. ORIENTED.
[2019-07-14 12:30] VITALS: BP 111/71; PULSE 80; RESP 22; O2SAT 95
--- NOTE | 2019-07-14 12:38 | SUR.PHASEI ---
1238; PT AWAKE AND ALERT. C/O BURNING TO PENIS. READY TO SIT IN CHAIR AND HAVE A DRINK OF WATER.
[2019-07-14 12:50] VITALS: BP 130/74; PULSE 80; RESP 18; O2SAT 95
[2019-07-14 13:20] VITALS: BP 127/75; PULSE 84; RESP 18; O2SAT 96
== END 2019-07-14 14:00 | disposition home or self-care (01) ==
PROVIDERS: PCP Registered Nurse; Visit Provider Urology
PROC: (CPT 50590; principal; 2019-07-14 10:30)
DX: N20.2 Calculus of kidney with calculus of ureter (principal); F17.210 Nicotine dependence, cigarettes, uncomplicated; Z79.84 Long term (current) use of oral hypoglycemic drugs; Z79.82 Long term (current) use of aspirin; Z79.891 Long term (current) use of opiate analgesic; Z79.02 Long term (current) use of antithrombotics/antiplatelets; Z95.5 Presence of coronary angioplasty implant and graft; E66.01 Morbid (severe) obesity due to excess calories; Z68.42 Body mass index [BMI] 45.0-49.9, adult
CPT/HCPCS: 52332; 50590; 74018; 82365; 88300; A9270; C1769; C1887; C1894; C2617; J0690; J1100; J2370; J2405; J2704; J3010; J7030; J7120; Q9966

== ENCOUNTER 2019-07-26 14:53 | Outpatient (CLI) | payer MEDICARE, MEDICAID, SELFPAY ==
--- NOTE | ~2019-07-26 | XR_ITS ---
EXAMINATION: XR abdomen/kub 1V EXAM DATE: 07/26/2019 15:13 INDICATION: Left ureteral stent, left flank pain. TECHNIQUE: Frontal projection of the upper abdomen, frontal projection lower abdomen/pelvis for inter pretation. Comparison is made to prior examination from 07/14/2019. FINDINGS: Nonobstructive bowel gas pattern. There is a left-sided double-J ureteral stent, interval development of partially uncoiled proximal loop but still overlying expected position. There are chol ecystectomy clips. There are mild bony degenerative changes. IMPRESSION: Left ureteral stent, proximal loop uncoiled but still overlying expected position. Reviewed, dictated and finalized at location [facility]. IMPRESSION: Left ureteral stent, proximal loop uncoiled but still overlying ex pected position.
== END 2019-07-26 14:54 | disposition home or self-care (01) ==
PROVIDERS: PCP Registered Nurse; Visit Provider Urology
DX: N20.1 Calculus of ureter (principal); Z96.0 Presence of urogenital implants
CPT/HCPCS: 74018

== ENCOUNTER 2019-08-03 08:24 | Outpatient (CLI) | payer MEDICARE, MEDICAID, SELFPAY ==
--- NOTE | ~2019-08-03 | NM_ITS ---
EXAMINATION: NM bone scan whole body DATE: 08/03/2019 11:30 INDICATION: Sclerotic lesions of the proximal femora. TECHNIQUE: 22.6 mCi Tc-99m HDP was administered intravenously. Delayed whole-body scintigrams were o btained. COMPARISON: CT abdomen and pelvis 06/27/2019 FINDINGS: There is no abnormal increased activity in the proximal femora. There is joint-centered inc reased activity in the knees, feet, and shoulders without radiographic comparison, likely osteoarthri tis. IMPRESSION: 1. No evidence of metastatic disease. Reviewed, dictated and finalized at location A.
== END 2019-08-03 08:25 | disposition home or self-care (01) ==
PROVIDERS: PCP Registered Nurse; Visit Provider Registered Nurse
DX: M89.50 Osteolysis, unspecified site (principal)
CPT/HCPCS: 78306; A9561

== ENCOUNTER 2019-08-12 21:34 | Emergency (ER) | payer MEDICARE, MEDICAID, SELFPAY ==
--- NOTE | ~2019-08-12 | XR_ITS ---
EXAMINATION: XR abdomen/kub 1V DATE: 08/12/2019 22:46 INDICATION: Left flank pain. TECHNIQUE: A supine view of the abdomen on 2 radiographs was obtained. COMPARISON: Abdomen radiograph 07/26/2019, CT abdomen and pelvis 08/12/2019 FINDINGS: There are no dilated loops of bowel. There are vascular calcifications in the pelvis. There is a 16 mm stone in left renal pelvis. There is a 7 mm stone in left kidney lower pole. The stones i n distal left ureter are not well visualized. IMPRESSION: 1. Stones in distal left ureter not well visualized. 2. Left kidney stones. Reviewed, dictated and finalized at location A.
--- NOTE | ~2019-08-12 | CT_ITS ---
EXAMINATION: CT abdomen pelvis wo con DATE: 08/12/2019 22:04 INDICATION: Left flank pain. TECHNIQUE: Computed tomography (CT) of the abdomen and pelvis was performed without intravenous contr ast. Automated exposure control and iterative reconstruction technique were employed. The dose-length product was 1429.09 mGy-cm. COMPARISON: CT abdomen and pelvis 06/27/2019, 12/16/16 FINDINGS: The visualized portions of the lung bases demonstrate mild atelectasis. There is a trace le ft pleural effusion. The heart size is normal. No pericardial effusion. There are coronary artery alejandra cifications. There is diffuse hepatic steatosis. There are changes of cholecystectomy. The spleen and pancreas are normal. There are masses in the adrenal glands measuring up to 3.8 cm on the left that contain fat, consistent with myelolipomas. Right kidney is normal. There is a 16 mm stone in left roxanne al pelvis. There is a 7 mm stone in left kidney lower pole. There is mild left hydroureter. There are three stones in distal left ureter measuring up to 5 mm. The prostate is mildly enlarged. There are no dilated loops of bowel. The appendix is normal. There are no pathologically enlarged lymph nodes. There is no free intraperitoneal fluid. There is mild lumbar spondylosis. There are bridging endplate osteophytes at multiple levels in the thoracic spine, consistent with diffuse idiopathic skeletal hy perostosis (DISH). There is a chronic 14 mm sclerotic lesion in proximal left femur, likely benign. IMPRESSION: 1. Three stones measuring up to 5 mm in distal left ureter with mild left hydroureter. 2. Nonobstructing left kidney stones. Reviewed, dictated and finalized at location A. IMPRESSION: 1. Three stones measuring up to 5 mm in distal left ureter with mild left hydro ureter. 2. Nonobstructing left kidney stones.
[2019-08-12 21:36] VITALS: BP 156/69; PULSE 87; RESP 18; TEMP 36.6; O2SAT 97
[2019-08-12] MEDS: SODIUM CHLORIDE 0.9% IV 1,000 ML 999 ML IV CONT (22:11)
[2019-08-12] MEDS: KETOROLAC 30 MG/ML VIAL (*BKC) IV PUSH (22:11)
--- NOTE | 2019-08-12 22:11 | ED.MALEGU ---
HPI - Male Genitourinary General Chief complaint: Urogenital-Male Stated complaint: kidney stone Time Seen by Provider: 08/12/19 21:49 History of Present Illness HPI Narrative: Patient is a 59-year-old male with history of kidney stones who presents the ER with left-sided flank pain. Sudden onset at 9 PM. Reports he has had some blood in his urine over the last day. Mild nausea but no vomiting. Pain is 5/10. Radiates into the abdomen. Sharp and aching in nature. No alleviating factors. Related Data Home Medications Medication Instructions Recorded Confirmed Breo Ellipta 1 inh INHALATION DAILY 01/24/19 07/14/19 Trulicity 1.5 mg SUBCUT WEEKLY 01/24/19 07/14/19 Xarelto 2.5 mg PO BID 01/24/19 07/14/19 amlodipine 10 mg PO DAILY 01/24/19 07/14/19 bupropion HCl 150 mg PO BID 01/24/19 07/14/19 doxazosin 2 mg PO HS 01/24/19 07/14/19 losartan 100 mg PO HS 01/24/19 07/14/19 metformin 1,000 mg PO BID 01/24/19 07/14/19 ciclopirox 8 % topical solution 1 applic TOPICAL DAILY PRN 04/13/19 07/11/19 nitroglycerin 0.4 mg sublingual 0.4 mg SUBLINGUAL Q5M PRN 04/13/19 07/11/19 tablet omeprazole 40 mg capsule,delayed 40 mg PO DAILY 04/13/19 07/14/19 release potassium chloride 20 mEq 20 meq PO DAILY 04/13/19 07/14/19 tablet,extended release albuterol sulfate [Ventolin HFA] 2 puff INHALATION DIRECTED PRN 04/28/19 07/11/19 carvedilol [Coreg] 25 mg PO BID 04/28/19 07/14/19 isosorbide mononitrate 30 mg PO HS 04/28/19 07/14/19 Combivent Respimat 2 puff INHALATION PRN PRN 05/16/19 07/14/19 atorvastatin 80 mg PO HS 05/16/19 07/14/19 Allergies Allergy/AdvReac Type Severity Reaction Status Date / Time No Known Allergies Allergy Unknown Verified 08/12/19 22:17 Review of Systems Review of Systems: All systems reviewed & are unremarkable except as noted in HPI and below Constitutional: Constitutional: Denies fatigue, Denies fever(s) and Denies weakness ENT: Denies nasal congestion and Denies sore throat Cardiovascular: Cardiovascular: Denies chest pain and Denies radiating jaw, neck or arm pain Respiratory: Respiratory: Denies cough and Denies dyspnea Gastrointestinal: Gastrointestinal: Reports abdominal pain, Reports nausea and Denies vomiting Genitourinary: Genitourinary: Reports hematuria, Denies oliguria and Reports urinary frequency PMFSH Social History Social History Social History: The patient is and has no children. Rena Dodd is his durable power mergers and acquisitions attorney for healthcare with whom he lives as a roommate. He is a full code. He does smoke 3 cigarettes per day currently. No current alcohol use. 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 HEAD: Normocephalic, atraumatic. ENT: Mucous membranes moist. CHEST: Clear to auscultation. No respiratory distress. HEART: Regular rate and rhythm. Normal peripheral pulses. ABDOMEN: Soft, nontender, nondistended. No CVA tenderness. EXTREMITIES: Normal range of motion. No edema. SKIN: Warm, dry, no rash. NEURO: Alert and oriented x3. Course Course Emergency Course: Pain controlled with Toradol. Discussed case with Dr. Ibarra. Patient require follow-up. Patient needs more pain medication nausea medication for home. He has adequate supply of Flomax. Vital Signs Vital signs: Vital Signs Temperature 97.8 F 08/12/19 21:36 Pulse Rate 87 08/12/19 21:36 Respiratory Rate 18
[2019-08-12 22:16] VITALS: BP 140/77; PULSE 80; RESP 20; TEMP 36.7; O2SAT 98
[2019-08-12 22:26] LABS: Basophils Percent Auto 0.2 % (0.2-1.2); Eosinophils Absolute Auto 0.2 K/mm3 (0-0.3); Eosinophils Percent Auto 2.2 % (0-4.4); Hematocrit 40.6 % (42.0-52.0); Immature Granulocyte Absolute 0.04 K/mm3 (0.00-0.031); Immature Granulocyte Percent A 0.5 % (0-0.5); Lymphocytes Absolute Auto 1.78 K/mm3 (0.9-3.2); Lymphocytes Percent Auto 21.3 % (18.3-44.2); Mean Corpuscular HGB Conc 34.5 g/dl (32-36); Mean Corpuscular Hemoglobin 30.7 pg (26-34); Mean Platelet Volume 11.5 fl (7.4-10.4); Monocytes Absolute Auto 0.7 K/mm3 (0.1-0.6); Neutrophils Absolute Auto 5.7 K/mm3 (1.3-6.7); Neutrophils Percent Auto 67.8 % (45.5-73.1); Platelet Count Result 141 k/mm3 (150-375); Red Blood Count 4.56 M/mm3 (4.6-6.20); Red Cell Distribution Width 13.4 % (11.5-14.5); White Blood Count 8.4 K/mm3 (4.5-10.0)
[2019-08-12 22:34] LABS: Add Urine Microscopic? YES; Appearance Urine Cloudy (Clear); Bilirubin Urine Negative (Negative); Blood Urine 3+ (Negative); Color Urine Yellow (Yellow); Glucose Urine UA 1+ mg/dL (Negative); Ketones Urine Negative (Negative); Leukocyte Esterase Ur Negative LEU/UL (Negative); Mucus Urine Rare /lpf; Nitrate Urine Negative (Negative); Protein Urine 1+ mg/dL (Negative); RBC Urine >75 /hpf (0-2); Specific Grav Ur 1.017 (1.001-1.035); Urobilinogen Urine Negative mg/dL (<2.0)
[2019-08-12 22:39] LABS: Blood Urea Nitrogen 13 mg/dL (9-20); Carbon Dioxide 25 mmol/L (22-30); Chloride 103 mmol/L (98-107); Estimated Glomerular Filt Rate > 60; Glucose 194 mg/dL (75-110); Potassium 3.7 mmol/L (3.4-5.0); Sodium 136 mmol/L (137-145)
--- NOTE | 2019-08-12 23:23 | PC.NURSE ---
Assumed care of patient at this time.
[2019-08-13 00:23] VITALS: BP 131/77; PULSE 76; RESP 20; O2SAT 97
== END 2019-08-13 00:20 | disposition home or self-care (01) ==
LOC: ANHED 23:42
PROVIDERS: Emergency Provider Emergency Medicine; PCP Registered Nurse
DX: N13.2 Hydronephrosis with renal and ureteral calculous obstruction (principal); F17.210 Nicotine dependence, cigarettes, uncomplicated
CPT/HCPCS: 36415; 74018; 74176; 80048; 81001; 85025; 96361; 96374; 99284; J1885; J7030

== ENCOUNTER 2019-09-05 13:32 | Outpatient (CLI) | payer MEDICARE, MEDICAID, SELFPAY ==
--- NOTE | ~2019-09-05 | CT_ITS ---
EXAMINATION: CT abdomen pelvis wo con DATE: 09/05/2019 13:53 INDICATION: Left-sided kidney stone TECHNIQUE: Computed tomography (CT) of the abdomen and pelvis was performed without intravenous contr ast. The dose-length product (DLP) was 1396.03 mGy-cm. Automated exposure control and iterative recon struction technique were employed. COMPARISON: 08/12/2019 FINDINGS: Minimal dependent atelectasis is present in the lung bases. The heart size is normal. A tra ce left pleural effusion is again noted. The gallbladder is surgically absent. The liver is diffusely low in attenuation when compared with the spleen, consistent with hepatic steatosis. The spleen and pancreas are normal. Again seen are stable masses of the adrenal glands, measuring up to 3.8 cm on th e left, containing macroscopic fat and consistent with mild lipomas. The right kidney is unremarkable . There is an unchanged 16 mm stone in the left renal pelvis. There are three unchanged adjacent ston es in the distal left ureter which measure up to 5 mm. No persistent left hydroureter is seen. There is a 5 mm nonobstructing stone of the left mid kidney. No pathologically enlarged abdominal or pelvic lymph nodes are identified. There is no free intraperitoneal gas or evidence of bowel obstruction. T here is mild lumbar spondylosis. The appendix is normal. A tiny fat-containing umbilical hernia is n oted. A chronic and unchanged 14 mm sclerotic lesion in the proximal left femur is likely benign. IMPRESSION: 1. Stable stones in the left renal pelvis and distal left ureter. 2. Left nephrolithiasis. Reviewed, dictated and finalized at location A.
== END 2019-09-05 13:33 | disposition home or self-care (01) ==
PROVIDERS: PCP Registered Nurse; Visit Provider Urology
DX: N20.2 Calculus of kidney with calculus of ureter (principal)
CPT/HCPCS: 74176

== ENCOUNTER 2019-09-06 08:00 | Outpatient (RCR) | payer MEDICARE, MEDICAID, SELFPAY ==
--- NOTE | 2019-08-02 09:42 | PTOPEVAL ---
INITIAL PHYSICAL THERAPY EVALUATION and PLAN OF CARE Thank you for referring Vini Zambrano to [facility][Note 3]. He will be seen in PT 2x/wk x 4 wks. Please review, sign, date and return this plan of care GISSELLE. I agree with and certify that the following plan of care is medically necessary. Referring Physician Date Admitting Provider: Attending Provider: Sandi Alfaro, CHIEF MARKETING OFFICER Referring Provider: *PT Outpatient Evaluation Start: 08/02/19 08:13 Freq: Status: Active Protocol: Document 08/02/19 08:10 PATTI (Rec: 08/02/19 09:28 PATTI [id number]) Therapy Assessment Status Assessment Status Assessment Status Evaluation Outpatient Past Medical History Past Medical History Source of Past Medical History Patient Neurological History Hx Cerebrovascular Accident (CVA) Yes: CVA X2-MILD LEFT SIDED WEAKNESS USES CANE Hx Transient Ischemic Attacks (TIA) Yes: 5 or 6 Cardiovascular History Hx Angina Yes Hx Cardiac Catheterization Yes Hx Chest Pain Yes Hx Congestive Heart Failure Yes Hx Coronary Artery Disease Yes Hx Coronary Stent Yes: X2 Hx Hypercholesterolemia Yes Hx Hypertension Yes Hx Myocardial Infarction Yes Hx Peripheral Vascular Disease Yes Hx Other Cardiac Disorders Yes: implanted loop recorder, FOLLOWS WITH DR. TONY Respiratory History Hx Chronic Obstructive Pulmonary Disease Yes (COPD) Hx Pneumonia Yes Hx Sleep Apnea Yes: USES CPAP Gastrointestinal History Hx Cholecystectomy Yes Hx Gastroesophageal Reflux Disease Yes Hx Gastrointestinal Bleed Yes: 2015 Hx Polyps Yes Hx Ulcer Yes Genitourinary History Hx Kidney Stones Yes: LITHROTRIPSY MULTIPLE Hx Urinary Tract Infection Yes Musculoskeletal History Hx Arthritis Yes Hx Back Pain Yes Hematological History Hx Hematological Disorders No Significant History Endocrine History Hx Diabetes Yes: NIDDM HEENT History Hx Tonsillectomy Yes Hx Dental Problems Yes: Caries Hx Other HEENT Disorders Yes: ALEK[place]IK Integumentary History Hx Eczema Yes Hx Psoriasis Yes Reproductive History Hx Reproductive Disorders No Significant History Psychosocial History Hx Anxiety Yes Hx Depression Yes Pain History History of Any Previous or Ongoing No Significant History Instance of Pain Anesthesia History Hx Anesthesia Reactions No Significant History Other History Hx Implanted Device
--- NOTE | 2019-08-16 08:01 | PCPTNOTE ---
Vini called to cancel due to kidney stones. He is scheduled for 08/18/19.
--- NOTE | 2019-08-18 08:18 | PCPTNOTE ---
Vini phoned to cancel appointment - ill with kidney stones.
--- NOTE | 2019-09-06 08:50 | PTOPEVAL ---
PHYSICAL THERAPY DISCHARGE SUMMARY Thank you for referring Vini Zambrano to [facility]. Vini has met all goals set. I agree with Vini's discharge from PT. Referring Physician Date Admitting Provider: Attending Provider: Sandi Alfaro, SIDE PANEL PADDER Referring Provider: *PT Outpatient Evaluation Start: 08/02/19 08:13 Freq: Status: Active Protocol: Document 09/06/19 08:10 PATTI (Rec: 09/06/19 08:50 PATTI [id number]) Therapy Assessment Status Assessment Status Assessment Status Discharge Evaluation Information Problem Subjective Information Vini states that back is Query Text:As Reported By Patient/ doing fine. Still having Family difficulty with kidney stones. Able to perform HEP without difficulty. Does not have therapeutic ball at home. Pain Assessment Timing of Pain Assessment Timing of Pain Assessment Assessment Pain Scale Pain Scale Used Numeric (1 - 10) Self Report Pain Assessment Posterior Back Reported Pain Level 0 Lowest Pain Intensity 0 Greatest Pain Intensity 4 Pain Score Pain Score 0: Self Report Cervical and Lumbar ROM Lumbar ROM Lumbar Flexion (0-90) 45 Query Text:Active in Degrees Lumbar Extension (0-40) 15 Query Text:Active in Degrees Lumbar Lateral Flexion Right (0-40) 15 Query Text:Active in Degrees Lumbar Lateral Flexion Left (0-40) 15 Query Text:Active in Degrees Lumbar Comments with flexion and extension - pain limits motion - closer to center of spine rather than R side Discomfort present with side bending - each direction Palpation Assessment Palpation Palpation pelvis/SIJ - in alignment - symmetrical mobility with standing flexion testing negative Squish testing PT Clinical Summary Clinical Summary Protocol: PTEVCODE PT Clinical Summary Vini has done well in PT - all goals have been met. His HEP was reviewed this date - he is able to perform it well. He was encouraged to obtain therapeutic ball for additional exercises at home - like he performed in the clinic. Discussion was had - if similiar pain returns to
== END 2019-09-13 13:45 | disposition home or self-care (01) ==
LOC: ANHPT 08:00
PROVIDERS: PCP Registered Nurse; Visit Provider Registered Nurse
DX: M54.9 Dorsalgia, unspecified (principal)
CPT/HCPCS: 97110; 97140; 97161

== ENCOUNTER 2019-09-14 17:42 | Emergency (ER) | payer MEDICARE, MEDICAID, SELFPAY ==
--- NOTE | ~2019-09-14 | XR_ITS ---
EXAMINATION: XR abdomen/kub 1V DATE: 09/14/2019 18:21 INDICATION: Left flank pain. TECHNIQUE: A supine view of the abdomen on 2 radiographs was obtained. COMPARISON: CT abdomen and pelvis 09/05/2019 FINDINGS: There are no dilated loops of bowel. Surgical clips in the right upper quadrant are likely from cholecystectomy. There is a 15 mm stone in left kidney. There is a cluster of stones in distal l eft ureter. IMPRESSION: 1. Cluster of stones in distal left ureter. 2. 15 mm stone in left kidney. Reviewed, dictated and finalized at location A.
[2019-09-14 17:49] VITALS: BP 143/70; PULSE 84; RESP 16; TEMP 36.2; O2SAT 96
--- NOTE | 2019-09-14 18:12 | ED.ABDPAIN ---
HPI - Abdominal Pain General Chief Complaint: Urogenital-Male Stated Complaint: difficulty urinating Time Seen by Provider: 09/14/19 17:56 Source: patient Mode of arrival: ambulatory History of Present Illness HPI narrative: Patient is a 59-year-old male with a history of kidney stones He has had a couple different tries at lithotripsy but still apparently has a pretty big stone in his left renal pelvis He reports passing 3 large stones while voiding earlier today but is now having trouble urinating at all He has some left-sided flank pain which is not terrifically incapacitating MD elicited complaint: other Pertinent past history: other (ks) Onset (ago): hour(s) Location: L flank Severity: mild Related Data Home Medications Medication Instructions Recorded Confirmed Breo Ellipta 1 inh INHALATION DAILY 01/24/19 07/14/19 Trulicity 1.5 mg SUBCUT WEEKLY 01/24/19 07/14/19 Xarelto 2.5 mg PO BID 01/24/19 07/14/19 amlodipine 10 mg PO DAILY 01/24/19 07/14/19 bupropion HCl 150 mg PO BID 01/24/19 07/14/19 doxazosin 2 mg PO HS 01/24/19 07/14/19 losartan 100 mg PO HS 01/24/19 07/14/19 metformin 1,000 mg PO BID 01/24/19 07/14/19 ciclopirox 8 % topical solution 1 applic TOPICAL DAILY PRN 04/13/19 07/11/19 nitroglycerin 0.4 mg sublingual 0.4 mg SUBLINGUAL Q5M PRN 04/13/19 07/11/19 tablet omeprazole 40 mg capsule,delayed 40 mg PO DAILY 04/13/19 07/14/19 release potassium chloride 20 mEq 20 meq PO DAILY 04/13/19 07/14/19 tablet,extended release albuterol sulfate [Ventolin HFA] 2 puff INHALATION DIRECTED PRN 04/28/19 07/11/19 carvedilol [Coreg] 25 mg PO BID 04/28/19 07/14/19 isosorbide mononitrate 30 mg PO HS 04/28/19 07/14/19 Combivent Respimat 2 puff INHALATION PRN PRN 05/16/19 07/14/19 atorvastatin 80 mg PO HS 05/16/19 07/14/19 Allergies Allergy/AdvReac Type Severity Reaction Status Date / Time No Known Allergies Allergy Unknown Verified 09/14/19 17:53 Review of Systems Review of Systems: All systems reviewed & are unremarkable except as noted in HPI and below Eyes: Eyes: Reports no additional eye complaints Cardiovascular: Cardiovascular: Reports no additional cardiovascular complaints Respiratory: Respiratory: Denies cough and Denies dyspnea Gastrointestinal: Gastrointestinal: Denies diarrhea and Denies vomiting Genitourinary: Genitourinary: Reports hematuria and Reports oliguria Musculoskeletal: Musculoskeletal: Reports no additional musculoskeletal complaints Neurologic: Reports system reviewed and no additional complaints, except as documented [facility] Social History Social History Social History: The patient is and has no children. Rena Dodd is his durable power county attorney for healthcare with whom he lives as a roommate. He is a full code. He does smoke 3 cigarettes per day currently. No current alcohol use. 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 Gender identity (if verbalized by the patient): Male Spiritual care concerns: No Agree to blood products: Yes Exam Const: General: healthy appearing, no acute distress and well developed Nutritional Appearance: well nourished Orientation/consciousness: patient oriented x3 (alert) and Other orientation findings (Alert) Limitations: no limitations HENMT: Head: normocephalic and atraumatic Ears: external ears normal General nose exam: No nasal discharge present Face and sinus: face symmetric Mouth: Yes tongue normal Throat: other (No exudate, no erythema) Eyes: Conjunctivae: conjunctivae normal Sclera: sclerae normal EOM: EOMs intact bilaterally Neck:
[2019-09-14 19:18] LABS: Add Urine Microscopic? YES; Appearance Urine Clear (Clear); Bilirubin Urine Negative (Negative); Blood Urine 2+ (Negative); Color Urine Yellow (Yellow); Glucose Urine UA Negative (Negative); Ketones Urine Negative (Negative); Leukocyte Esterase Ur Negative LEU/UL (Negative); Mucus Urine Few /lpf; Nitrate Urine Negative (Negative); Protein Urine Negative (Negative); RBC Urine >75 /hpf (0-2); Specific Grav Ur 1.021 (1.001-1.035); Urobilinogen Urine Negative mg/dL (<2.0); WBC Urine 0-3 /hpf
[2019-09-14 19:57] VITALS: BP 150/95; PULSE 80; RESP 16; TEMP 36.6; O2SAT 95
== END 2019-09-14 19:58 | disposition home or self-care (01) ==
PROVIDERS: Emergency Provider Emergency Medicine; PCP Registered Nurse
DX: N20.2 Calculus of kidney with calculus of ureter (principal); Z87.442 Personal history of urinary calculi; F17.210 Nicotine dependence, cigarettes, uncomplicated; Z86.73 Personal history of transient ischemic attack (TIA), and cerebral infarction without residual deficits
CPT/HCPCS: 74018; 81001; 99283

== ENCOUNTER 2019-09-29 14:13 | Observation (INO) | payer MEDICARE, MEDICAID, SELFPAY ==
--- NOTE | ~2019-09-29 | XR_ITS ---
EXAMINATION: XR chest 1V EXAM DATE: 09/29/2019 14:39 INDICATION: New left hemiparesis. TECHNIQUE: Portable AP frontal chest x-ray was obtained. Comparison is made to prior examination from 04/13/2019. FINDINGS: There is a cardiac monitoring device. The lungs are clear. There are no pleural effusions. Cardiac silhouette is prominent but magnified on this AP technique. There is no pneumothorax susp ected. The bones and soft tissues are unremarkable. There is no significant interval change. IMPRESSION: No acute cardiopulmonary findings. Reviewed, dictated and finalized at location A.
--- NOTE | ~2019-09-29 | MR_ITS ---
EXAMINATION: MR brain/brain stem wo/w con DATE: 09/30/2019 12:49 INDICATION: Bilateral arm and leg weakness. Bilateral hand numbness. TECHNIQUE: Magnetic resonance imaging (MRI) of the brain and brainstem was performed without and with 20 mL MultiHance intravenous contrast. Sequences included sagittal and axial T1-weighted FSE, axial diffusion-weighted FS EPI, axial T2*-weighted GRE, axial T2-weighted FLAIR Propeller, and axial T2-we ighted Propeller. Postcontrast sequences included axial and coronal T1-weighted FSE. Apparent diffusi on coefficient (ADC) maps were created. COMPARISON: Brain MRI 03/04/2019, head CT 09/29/2019 FINDINGS: There are scattered areas of nonspecific increased T2-weighted signal intensity in the cere bral white matter. There is a small area cystic encephalomalacia in the right frontoparietal white ma tter. There is no intracranial hemorrhage, acute infarction, or abnormal intracranial mass lesion. Th e ventricles are normal in size. The paranasal sinuses are clear. The orbits are normal. The mastoid air cells are normal. IMPRESSION: 1. Small area of cystic encephalomalacia in the right frontoparietal white matter. 2. Stable mild nonspecific cerebral white matter disease, which likely represents chronic small vesse l ischemic disease. Reviewed, dictated and finalized at location A. IMPRESSION: 1. Small area of cystic encephalomalacia in the right frontoparietal white sho er. 2. Stable mild nonspecific cerebral white matter disease, which likely represen ts chronic small vessel ischemic disease.
--- NOTE | ~2019-09-29 | MR_ITS ---
EXAMINATION: MR cervical spine wo/w con EXAM DATE: 09/30/2019 18:05 INDICATION: Bilateral arm and leg weakness. Bilateral hand numbness. TECHNIQUE: Multi-sequential, multiplanar MR images of the cervical spine were obtained without contra st. Axial T2, axial T2 MERGE sequence. Sagittal T1, T2, T2 fat saturation images also obtained. Axi al T1 weighted sequence. Patient was then injected with 20 mL Multihance intravenous contrast and re imaged. Postcontrast axial and sagittal T1-weighted fat saturation sequences were obtained. Comparis on is made to prior examination from 08/29/2013. FINDINGS: Sequences are limited from patient motion and a larger coil needed due to body habitus. The re is moderate to severe disc disease at C5-6, mild at C4-5 and C6-7. The vertebral bodies are aligne d in the AP dimension. The spinal cord signal intensity and intrinsic morphology is normal. Cervicome dullary junction is normal in appearance. There are no suspicious marrow signal abnormalities. Parasp inal soft tissue is unremarkable. There are no areas of abnormal enhancement on the post contrast nima ges. Level by level evaluation: C2-C3: Disc does not extend beyond the endplate margin. Uncovertebral joint arthropathy: None. Facet joint arthropathy: Mild to moderate left, mild right. Neural foraminal stenosis: No stenosis. Central canal stenosis: No stenosis. C3-C4: There is a minimal diffuse disc bulge. Uncovertebral joint arthropathy: Probably mild to moderate left and mild right. Facet joint arthropathy: Moderate left, mild right. Neural foraminal stenosis: Probably mild to moderate left. Central canal stenosis: No stenosis. C4-C5: There is a mild diffuse disc bulge. Uncovertebral joint arthropathy: Mild bilateral. Facet joint arthropathy: Mild to moderate bilateral. Neural foraminal stenosis: No stenosis. Central canal stenosis: No stenosis. C5-C6: There is a mild to moderate diffuse disc bulge asymmetric to the left Uncovertebral joint arthropathy: Moderate left, mild to moderate right. Facet joint arthropathy: Mild to moderate bilateral. Neural foraminal stenosis: Probably moderate to severe left and mild to moderate right. Central canal stenosis: Mild . Central canal measures 8 mm in mid sagittal AP diameter . C6-C7: There is a mild diffuse disc bulge. Uncovertebral joint arthropathy: Severe bilateral. Facet joint arthropathy: Mild bilateral. Neural foraminal stenosis: Moderate to severe left and moderate right. Central canal stenosis: Mild. C7-T1: Disc does not extend beyond the endplate margin. Uncovertebral joint arthropathy: Mild bilateral. Facet joint arthropathy: Mild bilateral. Neural foraminal stenosis: No stenosis. Central canal stenosis: No stenosis. IMPRESSION: 1. Mid cervical spondylosis with significant C5-6 and 6-7 left neural foraminal stenosis suspected. Reviewed, dictated and finalized at location A. IMPRESSION: 1. Mid cervical spondylosis with significant C5-6 and 6-7 left neural foramina l stenosis suspected.
--- NOTE | ~2019-09-29 | CT_ITS ---
EXAMINATION: CT brain wo con EXAM DATE: 09/29/2019 14:31 INDICATION: New left-sided facial hemiparesis. History of stroke. TECHNIQUE: Spiral CT of the head was performed without contrast. Axial, coronal and sagittal images were reviewed. The dose-length product (DLP) for this examination was 605.33 mGy-cm. The exposure w as tailored according to patient size, and iterative reconstruction (ASIR) was used as additional dos e reduction technique. Comparison is made to prior examination from 04/13/2019. FINDINGS: There is no acute intraparenchymal hemorrhage. No evidence of intraparenchymal brain mass lesion. No evidence of acute infarction. Please note that initial head CT has limited sensitivity f or small or acute infarctions. Small old right periventricular infarction. There is mild periventri cular and subcortical hypodensity, nonspecific but probably related to small vessel ischemic disease. There is mild prominence of the sulci and ventricles related to cerebral atrophy. There is intra cranial carotid arteriosclerosis. There are no extra-axial collections. There is no mass effect or midline shift. The orbits are unremarkable. Soft tissue is unremarkable. The visualized sinuses an d mastoid air cells are well aerated. IMPRESSION: 1. No acute intracranial findings. 2. Chronic age related findings. 3. Small old right periventricular infarction. Reviewed, dictated and finalized at location A.
--- NOTE | ~2019-09-29 | US_ITS ---
EXAMINATION: US carotid duplex BI DATE: 09/30/2019 13:12 INDICATION: Left hemiparesis. TECHNIQUE: Grayscale, color Doppler, and pulsed Doppler images of the cervical carotid arteries were obtained. The degree of vessel stenosis is placed in one of the following categories: normal, <50%, 5 0-69%, >=70% but less than near-occlusion, near-occlusion, or total occlusion. Note that percent sten osis relative to normal distal artery lumen diameter is indirectly measured from velocity measurement s as described by Marcus, et al. Radiology 2003; 229:340-346. COMPARISON: Ultrasound 01/25/2019 FINDINGS: RIGHT: The right common carotid artery (CCA) peak systolic velocity (PSV) is 76 cm/s. The right internal car otid artery (ICA) PSV is 54 cm/s. The right ICA end-diastolic velocity (EDV) is 17 cm/s. The right IC A/CCA PSV ratio is 1.1. Grayscale and color Doppler images yield an estimate of <50% diameter reducti on from plaque in the ICA. There is antegrade flow in the right vertebral artery. LEFT: The left CCA PSV is 87 cm/s. The left ICA PSV is 57 cm/s. The left ICA EDV is 19 cm/s. The left ICA/C CA PSV ratio is 0.6. Grayscale and color Doppler images yield an estimate of <50% diameter reduction from plaque in the ICA. There is antegrade flow in the left vertebral artery. IMPRESSION: 1. <50% stenosis in the right internal carotid artery. 2. <50% stenosis in the left internal carotid artery. Reviewed, dictated and finalized at location A.
[2019-09-29 14:17] VITALS: BP 139/71; PULSE 79; RESP 25; TEMP 36.3; O2SAT 97
--- NOTE | 2019-09-29 14:20 | ECG_ITS ---
Measurements Intervals [place] Rate: 77 P: 48 [place]: 165 QRS: 16 QRSD: 156 T: 40 QT: 417 QTc: 473 Interpretive Statements SINUS RHYTHM RIGHT BUNDLE BRANCH BLOCK ABNORMAL ECG Electronically Signed On 09-29-2019 16:08:54 CDT by Mathew Landon D.O.
[2019-09-29 14:37] LABS: Basophils Percent Auto 0.3 % (0.2-1.2); Eosinophils Absolute Auto 0.2 K/mm3 (0-0.3); Eosinophils Percent Auto 2.1 % (0-4.4); Hematocrit 39.9 % (42.0-52.0); Hemoglobin 13.8 g/dL (14.0-18.0); Immature Granulocyte Absolute 0.02 K/mm3 (0.00-0.031); Immature Granulocyte Percent A 0.3 % (0-0.5); Lymphocytes Absolute Auto 1.28 K/mm3 (0.9-3.2); Mean Corpuscular HGB Conc 34.6 g/dl (32-36); Mean Corpuscular Hemoglobin 30.7 pg (26-34); Mean Corpuscular Volume 88.7 fl (80-100); Mean Platelet Volume 11.5 fl (7.4-10.4); Monocytes Absolute Auto 0.6 K/mm3 (0.1-0.6); Neutrophils Absolute Auto 5.5 K/mm3 (1.3-6.7); Neutrophils Percent Auto 72.3 % (45.5-73.1); Platelet Count Result 142 k/mm3 (150-375); Red Cell Distribution Width 13.7 % (11.5-14.5); White Blood Count 7.5 K/mm3 (4.5-10.0)
[2019-09-29 14:47] LABS: INR 1.2; Prothrombin Time 14.4 Seconds (11.1-14.7)
[2019-09-29 14:48] LABS: Partial Thromboplastin Time 30.4 SECONDS (22.3-36.8)
[2019-09-29 14:49] LABS: Blood Urea Nitrogen 15 mg/dL (9-20); Calcium 9.2 mg/dL (8.4-10.2); Carbon Dioxide 22 mmol/L (22-30); Chloride 102 mmol/L (98-107); Estimated CRCL calculation 116 ml/min; Estimated Glomerular Filt Rate > 60; Glucose 229 mg/dL (75-110); Sodium 135 mmol/L (137-145)
[2019-09-29 15:01] LABS: Troponin I < 0.012 ng/mL (0.000-0.034)
--- NOTE | 2019-09-29 15:07 | ED.NEUROSD ---
HPI - Neuro Symptoms/Deficit General Chief Complaint: Neuro Symptoms/Deficit Stated Complaint: think kendell had a TIA Time Seen by Provider: 09/29/19 14:44 Source: RN notes reviewed History of Present Illness HPI Narrative: Patient presents emergency department from home for left-sided weakness. Patient states that symptoms began when he awoke at approximately 3 AM last night. Patient has weakness left arm and left leg as well as some mild difficulty speaking. He states he is had a history of 2 previous strokes is currently on Xarelto which she has been taking. Denies any fevers or chills chest pain shortness of breath or any other symptoms at this time Related Data Home Medications Medication Instructions Recorded Confirmed Breo Ellipta 1 inh INHALATION DAILY 01/24/19 07/14/19 Trulicity 1.5 mg SUBCUT WEEKLY 01/24/19 07/14/19 Xarelto 2.5 mg PO BID 01/24/19 07/14/19 amlodipine 10 mg PO DAILY 01/24/19 07/14/19 bupropion HCl 150 mg PO BID 01/24/19 07/14/19 doxazosin 2 mg PO HS 01/24/19 07/14/19 losartan 100 mg PO HS 01/24/19 07/14/19 metformin 1,000 mg PO BID 01/24/19 07/14/19 ciclopirox 8 % topical solution 1 applic TOPICAL DAILY PRN 04/13/19 07/11/19 nitroglycerin 0.4 mg sublingual 0.4 mg SUBLINGUAL Q5M PRN 04/13/19 07/11/19 tablet omeprazole 40 mg capsule,delayed 40 mg PO DAILY 04/13/19 07/14/19 release potassium chloride 20 mEq 20 meq PO DAILY 04/13/19 07/14/19 tablet,extended release albuterol sulfate [Ventolin HFA] 2 puff INHALATION DIRECTED PRN 04/28/19 07/11/19 carvedilol [Coreg] 25 mg PO BID 04/28/19 07/14/19 isosorbide mononitrate 30 mg PO HS 04/28/19 07/14/19 Combivent Respimat 2 puff INHALATION PRN PRN 05/16/19 07/14/19 atorvastatin 80 mg PO HS 05/16/19 07/14/19 Allergies Allergy/AdvReac Type Severity Reaction Status Date / Time No Known Allergies Allergy Unknown Verified 09/14/19 17:53 Review of Systems Review of Systems: Narrative: Gen.: Denies fevers or chills Eyes: Denies eye pain or visual change ENT: Denies congestion Respiratory: Denies shortness of breath or cough CV: Denies chest pain or palpitations GI: Denies abdominal pain nausea, emesis or diarrhea denies burning, urgency, frequency or hematuria Musculoskeletal: Denies back pain or muscle pain Neuro: See HPI Skin: Denies rash Except as documented, all other systems reviewed and negative [facility] Past Medical History Medical History Anxiety Arthritis CAD (coronary artery disease) CHF (congestive heart failure) COPD (chronic obstructive pulmonary disease) CVA (cerebral vascular accident) With mild left-sided weakness. Depression Diabetes mellitus Type 2 diabetes. Eczema Fracture of fifth toe, right, closed GERD (gastroesophageal reflux disease) GI bleed HLD (hyperlipidemia) HTN (hypertension) Kidney stones Myocardial infarction TAMIR on CPAP Peripheral neuropathy Pneumonia Psoriasis PVD (peripheral vascular disease) Rectal polyp Seasonal allergies Sleep apnea TIA (transient ischemic attack) Type 2 diabetes mellitus UTI (urinary tract infection) Social History Social History Social History: The patient is and has no children. Rena Dodd is his durable power research attorney for healthcare with whom he lives as a roommate. He is a full code. He does smoke 3 cigarettes per day currently. No current alcohol use. 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
[2019-09-29 15:20] VITALS: PULSE 76; RESP 18; O2SAT 97
[2019-09-29 17:00] VITALS: BP 135/75; PULSE 75; RESP 17; O2SAT 96
[2019-09-29 17:55] LABS: Glucose Point of Care 228 (65-105)
--- NOTE | 2019-09-29 18:41 | ADMGEN ---
This patient, Vini Zambrano, was admitted to Medical Room 253-01. Patient/family oriented to hospital policies and general routines including ID bracelet, bed and alarms, visiting hours, pain management, procedures, bathroom and other care routines, personal items, smoking policy, room service/diet, and visiting hours. Valuables list has been completed. Information on how to activate the Rapid Response Team has been discussed. Patient/Family are encouraged to report perceived risks to care and to ask questions if they do not understand what they are told or what they should do.
[2019-09-29 18:46] VITALS: BMI 49.0
[2019-09-29 18:56] VITALS: BP 145/80; PULSE 73; RESP 18; TEMP 36.7; O2SAT 98
[2019-09-29 20:00] VITALS: PULSE 80
[2019-09-29 20:52] LABS: Troponin I < 0.012 ng/mL (0.000-0.034)
[2019-09-29 21:47] VITALS: BP 124/66; PULSE 75; RESP 24; TEMP 36.1; O2SAT 97
[2019-09-30] VITALS (13 sets, daily range): BP systolic 100–129; BP diastolic 48–85; PULSE 70–85; RESP 20–22; TEMP 36–36.1; O2SAT 97–98
--- NOTE | 2019-09-30 | ECHO_ITS ---
Patient Info Name: Vini Zambrano Age: 59 years : 1960 Gender: Male Ht: 72 in Wt: 341 lbs BSA: 2.88 m2 HR: 73 bpm BP: 129 / 74 mmHg Heart Rhythm: Sinus Rhythm Technical Quality: Poor Exam Date: 09/30/2019 2:20 PM Exam Location: [facility] Pulmonary Patient Status: Inpatient Admit Date: 09/29/2019 Staff Ordering Physician: Joanie Gonzalez MD Commercial Service Technician: Yomaira Haney RDCS Attending Provider: Joanie Gonzalez MD Referring Physician: Lisa VENCES; Exam Type: CA echo dop color flow w con Study Info Indications - cva Complete two-dimensional, color flow and Doppler transthoracic echocardiogram is performed with contrast to opacify the left ventricle and to improve the deliniation of the left ventricle endocardial borders. Contrast/Agitated Saline Contrast/Ag. Saline: Definity Amount: 1.50 ml Reason for Poor Study: patient body habitus Summary 1. Left ventricular systolic function is hyperdynamic, estimated at 65-70%. 2. Definity contrast used to improve visualization. 3. Right ventricular chamber dimension is normal. 4. No valvular abnormalities. 5. No likely cardioemolic source seen. Left Ventricle Left ventricular chamber dimension is normal. Left ventricular systolic function is hyperdynamic, estimated at 65-70%. The left ventricular diastolic function is grade II diastolic dysfunction. Definity contrast used to improve visualization. Right Ventricle Right ventricular chamber dimension is normal. Left Atria Left atrial chamber dimension is normal. Right Atria Right atrial chamber dimension is normal. Aortic Valve The aortic valve is normal. Pulmonic Valve The pulmonic valve is not well visualized. Mitral Valve The mitral valve has normal leaflets. Tricuspid Valve The tricuspid valve leaflets are normal. Pericardium/Pleural The pericardium appears normal. Aorta The aortic root size at the sinus of Valsalva is normal. Left Ventricular Outflow Tract Name Value Normal LVOT 2D LVOT Diameter 1.97 cm LVOT Doppler LVOT Peak Gradient 6 mmHg LVOT Mean Gradient 3 mmHg LVOT VTI 25.39 cm LVOT VTI/AV VTI Ratio 0.91 LVOT Stroke Volume 77.13 ml LVOT CO 4.84 l/min LVOT CI 1.68 L/min/m2 Pulmonic Valve Name Value Normal RVOT Doppler RVOT Peak Gradient 2 mmHg PV Doppler PV Peak Gradient 6 mmHg Mitral Valve Name Value Normal ---------
[2019-09-30] MEDS: ATORVASTATIN 40 MG TABLET 80 MG PO ×2 (03:58→20:18)
[2019-09-30] MEDS: LOSARTAN POTASSIUM 100 MG TABLET PO ×2 (04:02→20:19)
[2019-09-30] MEDS: DOXAZOSIN MESYLATE 2 MG TABLET PO ×2 (04:02→20:18)
[2019-09-30] MEDS: ISOSORBIDE MONONITRATE 30 MG TAB.ER.24H PO ×2 (04:05→20:19)
[2019-09-30 05:26] LABS: Basophils Percent Auto 0.3 % (0.2-1.2); Eosinophils Absolute Auto 0.2 K/mm3 (0-0.3); Eosinophils Percent Auto 2.2 % (0-4.4); Hematocrit 38.3 % (42.0-52.0); Hemoglobin 13.2 g/dL (14.0-18.0); Immature Granulocyte Absolute 0.02 K/mm3 (0.00-0.031); Immature Granulocyte Percent A 0.3 % (0-0.5); Immature Platelet Fraction Pct 6.3 % (0.9-11.2); Lymphocytes Absolute Auto 1.09 K/mm3 (0.9-3.2); Lymphocytes Percent Auto 15.1 % (18.3-44.2); Mean Corpuscular HGB Conc 34.5 g/dl (32-36); Mean Corpuscular Hemoglobin 30.5 pg (26-34); Mean Corpuscular Volume 88.5 fl (80-100); Mean Platelet Volume 11.5 fl (7.4-10.4); Monocytes Absolute Auto 0.7 K/mm3 (0.1-0.6); Monocytes Percent Auto 9.3 % (2.6-8.5); Neutrophils Absolute Auto 5.3 K/mm3 (1.3-6.7); Neutrophils Percent Auto 72.8 % (45.5-73.1); Platelet Count Result 124 k/mm3 (150-375); Red Blood Count 4.33 M/mm3 (4.6-6.20); Red Cell Distribution Width 13.8 % (11.5-14.5); White Blood Count 7.2 K/mm3 (4.5-10.0)
[2019-09-30 05:43] LABS: Anion Gap 11.9 mmol/L (7-16); Blood Urea Nitrogen 14 mg/dL (9-20); Calcium 8.8 mg/dL (8.4-10.2); Carbon Dioxide 26 mmol/L (22-30); Chloride 102 mmol/L (98-107); Estimated CRCL calculation 110 ml/min; Estimated Glomerular Filt Rate > 60; Glucose 181 mg/dL (75-110); Potassium 3.9 mmol/L (3.4-5.0); Sodium 136 mmol/L (137-145)
[2019-09-30 08:05] LABS: Glucose Point of Care 176 (65-105)
[2019-09-30] MEDS: FUROSEMIDE 40 MG TABLET PO (08:38)
[2019-09-30] MEDS: POTASSIUM CHLORIDE 20 MEQ TABLET.ER PO (08:38)
[2019-09-30] MEDS: PANTOPRAZOLE 40 MG TABLET PO (08:38)
[2019-09-30] MEDS: ASPIRIN 81 MG CHEWABLE TABLET PO (08:38)
[2019-09-30] MEDS: amLODIPine BESYLATE 5 MG TABLET 10 MG PO (08:38)
[2019-09-30] MEDS: carvediloL 25 MG TABLET PO ×2 (08:38→16:50)
[2019-09-30] MEDS: metFORMIN HCL 500 MG TABLET 1000 MG PO ×2 (08:39→16:49)
[2019-09-30] MEDS: RIVAROXABAN 2.5 MG TABLET PO ×2 (08:39→16:49)
[2019-09-30] MEDS: ALBUTEROL SULFATE (*SP) AEROSOL 1 PUFF 2 PUFF INHALATION ×3 (09:20→20:41)
[2019-09-30 11:30] LABS: Glucose Point of Care 234 (65-105)
[2019-09-30] MEDS: INSULIN ASPART (*BKC) 100 UNITS/ML SUB-Q (11:30)
--- NOTE | 2019-09-30 12:05 | PC.NURSE ---
Patient to MRI per wheelchair.
--- NOTE | 2019-09-30 13:12 | PC.NURSE ---
Patient returned from MRI.
--- NOTE | 2019-09-30 13:24 | PM.IMHP ---
H&P: HPI History of Present Illness Date/Time: 09/30/19 13:24 Chief complaint: CVA impending Narrative: Vini Zambrano is a 59 year old male admitted with increasing weakness in his right leg, pt has a history of old cva with residual weakness in his left leg. pt does have a history of CVA/TIA, diabetes mellitus, coronary disease, peripheral vascular disease, congestive heart failure. pt states he felt strange and weak and confused last night weakness continued so he came into the hospital. pt is currently on xarelto and asa for stroke. Review of Systems Review of Systems: All systems reviewed & are unremarkable except as noted in HPI and below Musculoskeletal: Comments: Weakness in both his legs PMFSH Past Medical History Medical History Anxiety Arthritis CAD (coronary artery disease) CHF (congestive heart failure) COPD (chronic obstructive pulmonary disease) CVA (cerebral vascular accident) With mild left-sided weakness. Depression Diabetes mellitus Type 2 diabetes. Eczema Fracture of fifth toe, right, closed GERD (gastroesophageal reflux disease) GI bleed HLD (hyperlipidemia) HTN (hypertension) Kidney stones Myocardial infarction TAMIR on CPAP Peripheral neuropathy Pneumonia Psoriasis PVD (peripheral vascular disease) Rectal polyp Seasonal allergies Sleep apnea TIA (transient ischemic attack) Type 2 diabetes mellitus UTI (urinary tract infection) Surgical History Surgical History H/O heart artery stent 2 H/O lithotripsy History of cardiac catheterization 2 stents History of loop recorder History of rectal polypectomy Hx of cholecystectomy Hx of tonsillectomy Family History Family History Mother Diabetes mellitus Patient's mother is Kidney stones Father Family history of cardiovascular disease Acute myocardial infarction Kidney stones Sibling Family history of cardiovascular disease Social History Social History Social History: The patient is and has no children. Rena Dodd is his durable power estate attorney for healthcare with whom he lives as a roommate. He is a full code. He does smoke 3 cigarettes per day currently. No current alcohol use. 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 Gender identity (if verbalized by the patient): Male Spiritual care concerns: No Agree to blood products: Yes Meds Home Medications and Allergies Home Medications Medication Instructions Recorded Confirmed Type Breo Ellipta 1 inh INHALATION DAILY 01/24/19 09/29/19 History Trulicity 1.5 mg SUBCUT WEEKLY 01/24/19 09/29/19 History Xarelto 2.5 mg PO BID 01/24/19 09/29/19 History amlodipine 10 mg PO DAILY 01/24/19 09/29/19 History bupropion HCl 150 mg PO BID 01/24/19 09/29/19 History doxazosin 2 mg PO HS 01/24/19 09/29/19 History losartan 100 mg PO HS 01/24/19 09/29/19 History metformin 1,000 mg PO BID 01/24/19 09/29/19 History aspirin [Children's Aspirin] 81 mg PO DAILY@0800 #30 tablet 03/13/19 09/29/19 Rx furosemide 40 mg PO DAILY #30 tablet 03/13/19 09/29/19 Rx ciclopirox 8 % topical solution 1 applic TOPICAL DAILY PRN 04/13/19 09/29/19 History nitroglycerin 0.4 mg sublingual 0.4 mg SUBLINGUAL Q5M PRN 04/13/19 09/29/19 History tablet omeprazole 40 mg capsule,delayed 40 mg PO DAILY 04/13/19 09/29/19 History release potassium chloride 20 mEq 20 meq PO DAILY 04/13/19 09/29/19 History tablet,extended release albuterol sulfate [V
[2019-09-30] MEDS: PERFLUTREN LIPID MICROSPHERES 1.5 ML VIAL DILUTED TO 10 ML TOTAL VOLUME IV PUSH (14:57)
--- NOTE | 2019-09-30 16:03 | WPDNEURCNPN ---
Assessment and Plan Assessment and plan (1) Hydronephrosis: Code(s): N13.30 - Unspecified hydronephrosis Status: Acute (2) Left renal stone: Code(s): N20.0 - Calculus of kidney Status: Acute (3) Left ureteral stone: Code(s): N20.1 - Calculus of ureter Status: Acute (4) DVT prophylaxis: Code(s): Z29.9 - Encounter for prophylactic measures, unspecified Status: Acute (5) Transient cerebral ischemia: Code(s): G45.9 - Transient cerebral ischemic attack, unspecified Status: Acute (6) Tobacco abuse: Code(s): Z72.0 - Tobacco use Status: Chronic (7) Type 2 diabetes mellitus: Qualifiers: Diabetes mellitus usp insulin use: without usp use Diabetes mellitus complication status: without complication Qualified Code(s): E11.9 - Type 2 diabetes mellitus without complications Code(s): E11.9 - Type 2 diabetes mellitus without complications Status: Chronic (8) Left-sided weakness: Code(s): R53.1 - Weakness Status: Acute (9) Angina at rest: Code(s): I20.8 - Other forms of angina pectoris Status: Acute (10) Hx of tonsillectomy: Code(s): Z90.89 - Acquired absence of other organs Status: Resolved (11) Hx of cholecystectomy: Code(s): Z90.49 - Acquired absence of other specified parts of digestive tract Status: Resolved (12) History of loop recorder: Code(s): Z98.890 - Other specified postprocedural states Status: Resolved (13) History of cardiac catheterization: Code(s): Z98.890 - Other specified postprocedural states Status: Resolved (14) Sleep apnea: Code(s): G47.30 - Sleep apnea, unspecified Status: Chronic (15) PVD (peripheral vascular disease): Code(s): I73.9 - Peripheral vascular disease, unspecified Status: Chronic (16) Peripheral neuropathy: Code(s): G62.9 - Polyneuropathy, unspecified Status: Chronic (17) TAMIR on CPAP: Code(s): G47.33 - Obstructive sleep apnea (adult) (pediatric); Z99.89 - Dependence on other enabling machines and devices Status: Chronic (18) HTN (hypertension): Qualifiers: Hypertension type: essential hypertension Qualified Code(s): I10 - Essential (primary) hypertension Code(s): I10 - Essential (primary) hypertension Status: Chronic (19) GI bleed: Code(s): K92.2 - Gastrointestinal hemorrhage, unspecified Status: Resolved (20) GERD (gastroesophageal reflux disease): Code(s): K21.9 - Gastro-esophageal reflux disease without esophagitis Status: Chronic (21) Diabetes mellitus: Code(s): E11.9 - Type 2 diabetes mellitus without complications Status: Chronic (22) Depression: Code(s): F32.9 - Major depressive disorder, single episode, unspecified Status: Chronic (23) CVA (cerebral vascular accident): Code(s): I63.9 - Cerebral infarction, unspecified Status: Chronic (24) Anxiety: Code(s): F41.9 - Anxiety disorder, unspecified Status: Chronic Additional Plan patient has no evidence of new stroke he is already on antiplatelet and anticoagulation I do not think I can add anything further I suspect his going to get an echocardiogram done so what the situation is the present management needs to continue Consult date: 09/30/19 Time Seen: 15:30 HPI: Vini Zambrano is a 59 year old male he is familiar to me from previous hospitalization the gentleman has had as he claims many TIAs and has recent and he was in the hospital probably April of this year he is already on aspirin and low-dose Xarelto has a loop recorder on he comes in because of bilateral weakness primarily affecting his legs as if his legs are giving away and also paresthesias in his hand he denies any headache or neck pain however mentions he has had neck pain and at times radiating to his left arm brain MRI sh
[2019-09-30 17:06] LABS: Glucose Point of Care 180 (65-105)
--- NOTE | 2019-09-30 17:20 | PC.NURSE ---
Patient to MRI per wheelchair.
--- NOTE | 2019-09-30 18:03 | PC.NURSE ---
Patient return from MRI.
[2019-09-30 21:00] LABS: Glucose Point of Care 222 (65-105)
[2019-10-01] VITALS: PULSE 75
[2019-10-01 04:00] VITALS: PULSE 68
[2019-10-01 06:00] VITALS: BP 113/61; PULSE 69; RESP 20; TEMP 36.1; O2SAT 97
[2019-10-01] MEDS: ALBUTEROL SULFATE (*SP) AEROSOL 1 PUFF 2 PUFF INHALATION ×2 (07:40→10:59)
[2019-10-01 07:53] LABS: Glucose Point of Care 179 (65-105)
[2019-10-01 08:00] VITALS: PULSE 69; RESP 20; O2SAT 97
[2019-10-01] MEDS: metFORMIN HCL 500 MG TABLET 1000 MG PO (08:31)
[2019-10-01] MEDS: POTASSIUM CHLORIDE 20 MEQ TABLET.ER PO (08:31)
[2019-10-01] MEDS: amLODIPine BESYLATE 5 MG TABLET 10 MG PO (08:31)
[2019-10-01] MEDS: carvediloL 25 MG TABLET PO (08:32)
[2019-10-01] MEDS: ASPIRIN 81 MG CHEWABLE TABLET PO (08:32)
[2019-10-01] MEDS: PANTOPRAZOLE 40 MG TABLET PO (08:32)
[2019-10-01] MEDS: FUROSEMIDE 40 MG TABLET PO (08:32)
[2019-10-01] MEDS: RIVAROXABAN 2.5 MG TABLET PO (09:11)
--- NOTE | 2019-10-01 09:12 | PC.NURSE ---
Xarelto 2.5 from [facility] EXP: 04/04/20 lot:[id number]. Pharmacy notified again after second pill was sent to the floor ,still would not scan. Administered to the pt anyway.
[2019-10-01 11:33] LABS: Glucose Point of Care 226 (65-105)
[2019-10-01] MEDS: INSULIN ASPART (*BKC) 100 UNITS/ML SUB-Q (11:55)
--- NOTE | 2019-10-01 11:56 | PM.DS ---
DS: Admitting Diagnosis Admitting Diagnosis Admitting Diagnosis: Unspecified hydronephrosis DS: Discharge Diagnosis Discharge Diagnosis (1) Tobacco abuse: Code(s): Z72.0 - Tobacco use Status: Chronic Assessment and Plan: Smokes occasionally 3 cigs a day, refuses nicotine patch, adviced to stop smoking (2) Type 2 diabetes mellitus: Qualifiers: Diabetes mellitus complication status: without complication Diabetes mellitus assisted insulin use: without assisted use Qualified Code(s): E11.9 - Type 2 diabetes mellitus without complications Code(s): E11.9 - Type 2 diabetes mellitus without complications Status: Chronic Assessment and Plan: Accuchecks, ssi, trulicity is once a week for dm and metformin, hbaic is 6. (3) Left-sided weakness: Code(s): R53.1 - Weakness Status: Acute Assessment and Plan: Residual weakness from old cva right sided weakness may be new. mri today, and us carotids -stroke work up results are below MRI brain and US carotids are unremarkable for new stroke. Pt had MRI cspine which was abnl see results below. pt and ot order neurology consult continue statins, asa, xarelto. PT/OT pt did not have echo (4) DVT prophylaxis: Code(s): Z29.9 - Encounter for prophylactic measures, unspecified Status: Acute Assessment and Plan: on xarelto (5) Diabetes mellitus: Code(s): E11.9 - Type 2 diabetes mellitus without complications Status: Chronic Assessment and Plan: Trulicity is once a week for dm continue metformin, accucheks, SI (6) CHF (congestive heart failure): Qualifiers: Heart failure chronicity: chronic Heart failure type: unspecified Qualified Code(s): I50.9 - Heart failure, unspecified Code(s): I50.9 - Heart failure, unspecified Status: Chronic Assessment and Plan: continue lasix, pt did not have echo (7) COPD (chronic obstructive pulmonary disease): Qualifiers: COPD type: unspecified COPD Qualified Code(s): J44.9 - Chronic obstructive pulmonary disease, unspecified Code(s): J44.9 - Chronic obstructive pulmonary disease, unspecified Status: Chronic Assessment and Plan: continue breo inhalers, pt adviced to quit smoking, refuses nictone patch, smoking cessation adviced (8) HTN (hypertension): Qualifiers: Hypertension type: essential hypertension Qualified Code(s): I10 - Essential (primary) hypertension Code(s): I10 - Essential (primary) hypertension Status: Chronic Assessment and Plan: continue bp medications (9) HLD (hyperlipidemia): Qualifiers: Hyperlipidemia type: unspecified Qualified Code(s): E78.5 - Hyperlipidemia, unspecified Code(s): E78.5 - Hyperlipidemia, unspecified Status: Chronic Assessment and Plan: continue statin DS: Summary Time Spent with Patient Time attestation: Total time spent providing and/or coordinating discharge services:40 minutes on day of discharge Exam Const: General: well developed Nutritional Appearance: well nourished Chest: Chest palpation & inspection: normal inspection of the chest Resp: Effort & Inspection: normal respiratory effort Auscultation: clear to auscultation bilaterally Cardio: Jugular venous distension: no JVD Rhythm: regular rhythm Heart sounds: S1 normal heart sound present and S2 normal heart sound present GI: Inspection: normal to inspection Auscultation: normal bowel sounds Neuro: Cranial nerves: Yes CN's II-XII intact bilaterally and Yes Equal, round and reactive pupils present Cognition (Neuro): normal cognition Speech: normal speech Motor exam (neuro): Other motor observations present (4/5 both legs left worse than right ) Extrem: General: normal to inspection Psych: Appearance: grossly normal Mental Status: mental status grossly normal DS: Data Data Completed and Pen
[2019-10-01 12:00] VITALS: PULSE 76
--- NOTE | 2019-10-01 13:21 | PCPTNOTE ---
Patient refused to be seen for Physical Therapy on this date. Patient stated that he was getting ready to go home.
== END 2019-10-01 13:00 | disposition home health service (06) ==
LOC: ANHED 16:30 → ANH2MED 16:53
PROVIDERS: Admitting Provider Family Medicine; Emergency Provider Emergency Medicine; PCP Registered Nurse; Visit Provider Family Medicine
DX: G81.91 Hemiplegia, unspecified affecting right dominant side (principal); R47.1 Dysarthria and anarthria; G93.89 Other specified disorders of brain; I69.354 Hemiplegia and hemiparesis following cerebral infarction affecting left non-dominant side; N13.30 Unspecified hydronephrosis; M47.812 Spondylosis without myelopathy or radiculopathy, cervical region; E78.5 Hyperlipidemia, unspecified; E11.51 Type 2 diabetes mellitus with diabetic peripheral angiopathy without gangrene; F17.210 Nicotine dependence, cigarettes, uncomplicated; G47.33 Obstructive sleep apnea (adult) (pediatric); I25.2 Old myocardial infarction; I50.9 Heart failure, unspecified; I11.0 Hypertensive heart disease with heart failure; J44.9 Chronic obstructive pulmonary disease, unspecified; K21.9 Gastro-esophageal reflux disease without esophagitis; N20.0 Calculus of kidney; N20.1 Calculus of ureter; Z79.4 Long term (current) use of insulin; Z79.01 Long term (current) use of anticoagulants; Z95.5 Presence of coronary angioplasty implant and graft; Z79.02 Long term (current) use of antithrombotics/antiplatelets
CPT/HCPCS: 36415; 70450; 70553; 71045; 72156; 80048; 82948; 84484; 85025; 85055; 85610; 85730; 93005; 93880; 94640; 96374; 96375; 96376; 97110; 97161; 97165; 99285; A9270; A9577; C8929; G0378; G0379; J1815; J2060; Q9957

== ENCOUNTER 2019-10-30 19:07 | Inpatient (IN) | payer MEDICARE, MEDICAID, SELFPAY ==
[2019-10-30] VITALS (27 sets, daily range): BP systolic 119–147; BP diastolic 65–80; PULSE 74–83; RESP 17–22; TEMP 36.3–36.6; O2SAT 91–98
--- NOTE | ~2019-10-30 | XR_ITS ---
XR chest 2V 10/30/2019 20:03 Indication: Chest pain. COPD. Hypertension. Procedure: AP and lateral views of the chest Comparison: Comparison to multiple prior studies sequentially, with oldest reviewed study dated 04/2019. Findings: Cardiomegaly with mild interstitial edema. Small left pleural effusion. No pneumothorax. No acute osseous abnormality. Impression: 1: Cardiomegaly with mild interstitial edema. Reviewed, dictated and finalized at location A. Impression: 1: Cardiomegaly with mild interstitial edema.
--- NOTE | 2019-10-30 19:10 | ECG_ITS ---
Measurements Intervals [place] Rate: 82 P: 58 IA: 150 QRS: 7 QRSD: 150 T: 21 QT: 406 QTc: 477 Interpretive Statements SINUS RHYTHM RIGHT BUNDLE BRANCH BLOCK ABNORMAL ECG Electronically Signed On 10-31-2019 7:11:59 CDT by Mathew Landon D.O.
[2019-10-30 19:40] LABS: Basophils Percent Auto 0.3 % (0.2-1.2); Eosinophils Absolute Auto 0.2 K/mm3 (0-0.3); Eosinophils Percent Auto 2.6 % (0-4.4); Hematocrit 39.9 % (42.0-52.0); Hemoglobin 13.9 g/dL (14.0-18.0); Immature Granulocyte Absolute 0.04 K/mm3 (0.00-0.031); Immature Granulocyte Percent A 0.5 % (0-0.5); Immature Platelet Fraction Pct 7.5 % (0.9-11.2); Lymphocytes Percent Auto 21.9 % (18.3-44.2); Mean Corpuscular HGB Conc 34.8 g/dl (32-36); Mean Corpuscular Hemoglobin 30.9 pg (26-34); Mean Corpuscular Volume 88.7 fl (80-100); Mean Platelet Volume 11.8 fl (7.4-10.4); Monocytes Absolute Auto 0.7 K/mm3 (0.1-0.6); Monocytes Percent Auto 8.5 % (2.6-8.5); Neutrophils Absolute Auto 5.2 K/mm3 (1.3-6.7); Neutrophils Percent Auto 66.2 % (45.5-73.1); Platelet Count Result 148 k/mm3 (150-375); Red Cell Distribution Width 13.3 % (11.5-14.5); White Blood Count 7.8 K/mm3 (4.5-10.0)
[2019-10-30 19:50] LABS: Anion Gap 11 mmol/L (8-16); Blood Urea Nitrogen 16 mg/dL (9-20); Calcium 8.8 mg/dL (8.4-10.2); Carbon Dioxide 24 mmol/L (22-30); Chloride 101 mmol/L (98-107); Estimated CRCL calculation 96 ml/min; Estimated Glomerular Filt Rate > 60; Glucose 190 mg/dL (75-110); INR 1.2; Prothrombin Time 14.6 Seconds (11.1-14.7); Sodium 136 mmol/L (137-145)
[2019-10-30 19:51] LABS: Partial Thromboplastin Time 31.3 SECONDS (22.3-36.8)
[2019-10-30 20:02] LABS: Troponin I < 0.012 ng/mL (0.000-0.034)
[2019-10-30] MEDS: ASPIRIN 81 MG CHEWABLE TABLET 324 MG PO (20:19)
--- NOTE | 2019-10-30 20:41 | ED.CHESTPAIN ---
HPI - Chest Pain General Chief Complaint: Chest Pain Stated Complaint: CP, SOB Time Seen by Provider: 10/30/19 19:47 Source: patient Mode of arrival: ambulatory Limitations: no limitations History of Present Illness HPI narrative: This patient is a 59 year old male with history of CAD s/p stent, CVA, atrial fibrillation who presents for evaluation of sob since yesterday. He states he has had mild cough. He feels like he is congested and needs to cough stuff up. He has been using his inhaler but it has not provided him with relief. He denies fever or chills. He states he finally came to ER because he developed left chest pain that radiated down his left arm. MD complaint: chest pain Pertinent past history: coronary artery disease and prior GA Related Data Home Medications Medication Instructions Recorded Confirmed Breo Ellipta 1 inh INHALATION DAILY 01/24/19 10/30/19 Trulicity 1.5 mg SUBCUT WEEKLY 01/24/19 10/30/19 Xarelto 2.5 mg PO BID 01/24/19 10/30/19 amlodipine 10 mg PO DAILY 01/24/19 10/30/19 bupropion HCl 150 mg PO BID 01/24/19 10/30/19 doxazosin 2 mg PO HS 01/24/19 10/30/19 losartan 100 mg PO HS 01/24/19 10/30/19 metformin 1,000 mg PO BID 01/24/19 10/30/19 ciclopirox 8 % topical solution 1 applic TOPICAL DAILY PRN 04/13/19 10/30/19 omeprazole 40 mg capsule,delayed 40 mg PO DAILY 04/13/19 10/30/19 release potassium chloride 20 mEq 20 meq PO DAILY 04/13/19 10/30/19 tablet,extended release carvedilol [Coreg] 25 mg PO BID 04/28/19 10/30/19 isosorbide mononitrate 30 mg PO HS 04/28/19 10/30/19 Combivent Respimat 2 puff INHALATION PRN PRN 05/16/19 10/30/19 atorvastatin 80 mg PO HS 05/16/19 10/30/19 Allergies Allergy/AdvReac Type Severity Reaction Status Date / Time No Known Allergies Allergy Unknown Verified 10/30/19 19:10 Review of Systems Review of Systems: All systems reviewed & are unremarkable except as noted in HPI and below Constitutional: Constitutional: Denies chills and Denies fever(s) Cardiovascular: Cardiovascular: Reports chest pain Respiratory: Respiratory: Reports cough, Reports dyspnea and Reports wheezing Gastrointestinal: Gastrointestinal: Denies abdominal pain and Denies nausea Musculoskeletal: Musculoskeletal: Denies back pain [facility] Past Medical History Medical History Anxiety Arthritis CAD (coronary artery disease) CHF (congestive heart failure) Constipation COPD (chronic obstructive pulmonary disease) CVA (cerebral vascular accident) With mild left-sided weakness. Depression Diabetes mellitus Type 2 diabetes. Diarrhea Dizziness Eczema Fracture of fifth toe, right, closed GERD (gastroesophageal reflux disease) GI bleed Headache Hearing loss History of blood clots History of gastric ulcer HLD (hyperlipidemia) Hoarseness HTN (hypertension) Kidney stones Left knee pain Medial meniscus tear Myocardial infarction Nausea and vomiting TAMIR on CPAP Peripheral neuropathy Pneumonia Psoriasis PVD (peripheral vascular disease) Rectal polyp Seasonal allergies Shortness of breath Sleep apnea Sleep disorder Stomach pain TIA (transient ischemic attack) Type 2 diabetes mellitus UTI (urinary tract infection) Vertigo Vision abnormalities Weight gain Surgical History Surgical History H/O heart artery stent 2 H/O lithotripsy History of cardiac catheterization 2 stents History of loop recorder History of rectal polypectomy Hx of cholecystectomy Hx of tonsillectomy Family History Family History Mother Diabetes mellitus Patient's mother is Kidney stones Father Family history of cardiovascular disease Acute myocardial infarction Kidney stones Sibling Family history of cardiovascular disease Other Arthritis Heart disease Hypertension Social History Social History (Revie
[2019-10-30 21:34] LABS: NT Pro B Type Natriuretic Pept 71 PG/ML (5-100)
[2019-10-30] MEDS: predniSONE 20 MG TABLET 60 MG PO (21:46)
[2019-10-30] MEDS: ALBUTEROL SULFATE (*SP) AEROSOL 1 PUFF 6 PUFF INHALATION (22:00)
--- NOTE | 2019-10-30 22:46 | PM.IMHP ---
H&P: HPI History of Present Illness Date/Time: 10/30/19 22:46 Chief complaint: chest pain, copd Narrative: This is a 59 year old morbidly obese Diabetic male with known history of CAD+ s/p 2 stents, HTN, Hyperlipidemia, CHF among other comorbidities who presented to [facility] with a complaints of shortness of breath, wheezing, and dry cough for the past two days. He decided to come to the hospital when he was at home sitting and started to experience midsternal chest pain that radiated down his left arm. His chest pain lasted about 30 minutes in duration and resolved with time. The patient denies any significant LE swelling over the past few days. He also denies any fevers, chills, sore throat, abdominal pain, dysuria, hematuria, nausea, or vomiting. He does admit to me that he had a pool libertarian yesterday and had over 20 guests and no one wore a mask. The patient was evaluated in the ER today and his initial troponin was negative. He was given bronchodilators and swabbed for COVID-19. No other complaints. Review of Systems Review of Systems: All systems reviewed & are unremarkable except as noted in HPI and below PMFSH Past Medical History Medical History Anxiety Arthritis CAD (coronary artery disease) CHF (congestive heart failure) Constipation COPD (chronic obstructive pulmonary disease) CVA (cerebral vascular accident) With mild left-sided weakness. Depression Diabetes mellitus Type 2 diabetes. Diarrhea Dizziness Eczema Fracture of fifth toe, right, closed GERD (gastroesophageal reflux disease) GI bleed Headache Hearing loss History of blood clots History of gastric ulcer HLD (hyperlipidemia) Hoarseness HTN (hypertension) Kidney stones Left knee pain Medial meniscus tear Myocardial infarction Nausea and vomiting TAMIR on CPAP Peripheral neuropathy Pneumonia Psoriasis PVD (peripheral vascular disease) Rectal polyp Seasonal allergies Shortness of breath Sleep apnea Sleep disorder Stomach pain TIA (transient ischemic attack) Type 2 diabetes mellitus UTI (urinary tract infection) Vertigo Vision abnormalities Weight gain Surgical History Surgical History H/O heart artery stent 2 H/O lithotripsy History of cardiac catheterization 2 stents History of loop recorder History of rectal polypectomy Hx of cholecystectomy Hx of tonsillectomy Family History Family History Mother Diabetes mellitus Patient's mother is Kidney stones Father Family history of cardiovascular disease Acute myocardial infarction Kidney stones Sibling Family history of cardiovascular disease Other Arthritis Heart disease Hypertension Social History Social History Social History: The patient is and has no children. Rena Dodd is his durable power assistant city attorney for healthcare with whom he lives as a roommate. He is a full code. He does smoke 3 cigarettes per day currently. No current alcohol use. 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
[2019-10-30 22:50] LABS: Troponin I < 0.012 ng/mL (0.000-0.034)
--- NOTE | 2019-10-30 23:11 | PC.NURSE ---
This patient, Vini Zambrano, was admitted to Intensive Care Unit-5. Patient/family oriented to hospital policies and general routines including ID bracelet, bed and alarms, visiting hours, pain management, procedures, bathroom and other care routines, personal items, smoking policy, room service/diet, and visiting hours. Valuables list has been completed. Information on how to activate the Rapid Response Team has been discussed. Patient/Family are encouraged to report perceived risks to care and to ask questions if they do not understand what they are told or what they should do.
[2019-10-31] VITALS (17 sets, daily range): BP systolic 127–148; BP diastolic 68–95; PULSE 78–106; RESP 16–27; TEMP 35.9–36.9; O2SAT 94–100
[2019-10-31 01:19] LABS: Troponin I < 0.012 ng/mL (0.000-0.034)
[2019-10-31] MEDS: amLODIPine BESYLATE 5 MG TABLET 10 MG PO (11:16)
[2019-10-31] MEDS: PANTOPRAZOLE 40 MG TABLET PO ×2 (11:16→20:00)
[2019-10-31] MEDS: carvediloL 25 MG TABLET PO ×2 (11:16→17:20)
[2019-10-31] MEDS: RIVAROXABAN 2.5 MG TABLET PO ×2 (11:17→17:20)
[2019-10-31] MEDS: FUROSEMIDE INJ 40 MG/4 ML VIAL IV PUSH (11:17)
[2019-10-31] MEDS: ASPIRIN 81 MG CHEWABLE TABLET PO (11:19)
[2019-10-31 12:07] LABS: Glucose Point of Care 327 (65-105)
[2019-10-31 12:07] LABS: Glucose Point of Care 328 (65-105)
[2019-10-31 13:07] LABS: SARS-CoV-2 RNA PCR Negative
--- NOTE | 2019-10-31 14:17 | PM.CNCAR ---
Assessment and Plan Additional Plan 59-year-old man with known coronary disease interventional revascularization of the circumflex and LAD 5 in 4 years ago respectively. He has had a number of instances of chest pain since then but they are largely atypical such as this 1 and in the past he has had no further ischemia documented on stress testing. During this pandemic of course there was also concern about aguayo virus fortunately he is been shown by swab not to have that. At this point I would not keep him in the hospital for further cardiac testing since he is not reporting any exertional symptoms worrisome for ischemia. I will ensure that he has appropriate follow-up scheduled in our office. Todd Kwan MD [facility] History of Present Illness History of Present Illness Consult date/time: 10/31/19 14:17 Consult reason: chest pain Reason For Visit: chest pain, copd Narrative: This is a 59-year-old patient who has known coronary artery disease and follows in our practice with Dr. Willoughby. The patient came to the emergency room yesterday because he was feeling unwell he says that for most of the day yesterday he was feeling congested he was coughing although he was having a hard time bringing anything up out of his chest. He does not describe any fevers or chills. Shortly before this he was at a pool republican at a friend's house. He then started to have some left-sided to central precordial chest pain in some pain into the left shoulder that lasted for altogether 10-15 minutes and then subsided. When this happened he elected to come into the emergency room to be evaluated. In the ED his electrocardiogram shows no significant change of ischemia or injury. His troponin levels were negative. He was admitted to the ICU for rule out ME and rule out aguayo virus infection. His biomarkers are negative x3 sets and his Coronavirus assay is normal. When I entered the room to see me sitting in the bedside chair appears to be comfortable and offers no other complaints or concerns. The patient is known to have coronary artery disease and had interventional revascularization performed in his circumflex in August of 2014 and in his LAD in April of 2015. Received Xience drug-eluting stents to both lesions and has done well since then. He has had a number of visits to the hospital into the emergency room with various symptoms but has never had a documented ischemic problem since then. He did have a Amaya and stress test last year investigating some is atypical sounding chest pain which was a negative exam. His last appointment in the office with Dr. Willoughby was in July of this year which time he was doing well. His other major comorbidities include morbid obesity hypertension chronic obstructive pulmonary disease and nephrolithiasis. The patient also had a CVA that was treated emergently with thrombolytics therapy last year. Review of Systems Constitutional: Constitutional: Reports no additional constitutional complaints Eyes: Eyes: Reports no additional eye complaints ENT: Reports system reviewed and no additional complaints, except as documented Cardiovascular: Cardiovascular: Reports as per HPI and Reports no additional cardiovascular complaints Respiratory: Respiratory: Reports as per HPI, Reports cough and Reports dyspnea Gastrointestinal: Gastrointestinal: Reports no additional gastrointestinal complaints Musculoskeletal: Musculoskeletal: Reports back pain and Reports arthralgias Neurologic: Reports system reviewed and no additional complaints, except as documented Endocrine: Endocrine: Reports no additional endocrine complaints Hematologic/Lymphatic: Hematologic/Lymphatic: Reports no additional hematologic/lymphatic complaints Allergic/Immunologic: Allergic/Immunologic: Reports no additional allergic/immunologic complaints PMFSH Past Medical History Medical History Anxiet
[2019-10-31] MEDS: ALBUTEROL SULFATE NEB 2.5 MG/0.5 ML INH INHALATION ×2 (14:47→20:56)
[2019-10-31] MEDS: IPRATROPIUM BR 0.02% INH SOLN 0.5 MG/2.5 ML VIAL INHALATION ×2 (14:47→20:56)
--- NOTE | 2019-10-31 14:51 | PM.IMPN ---
Progress Note: A&P Assessment and Plan (1) Dyspnea: Qualifiers: Dyspnea type: unspecified Qualified Code(s): R06.00 - Dyspnea, unspecified Code(s): R06.00 - Dyspnea, unspecified Status: Acute Assessment and Plan: dyspnea could be COPD exacerbation, CHF, COVID-19 pneumonia, CAD - Currently on room air with good O2 sats, symptoms have resolved - troponin x3 are negative - continue bronchodilators (2) Chest pain: Qualifiers: Chest pain type: unspecified Qualified Code(s): R07.9 - Chest pain, unspecified Code(s): R07.9 - Chest pain, unspecified Status: Acute Assessment and Plan: chest pain could be related to ACS, troponin x3 are negative - appreciate Cardiology evaluation and recommendation. no further cardiac testing is warranted at this time (3) Suspected 2019 novel coronavirus infection: Code(s): Z20.828 - Contact with and (suspected) exposure to other viral communicable diseases Status: Acute Assessment and Plan: SARS-CoV-2 PCR negative 10/30/2019 - will discontinue droplet, airborne and contact isolation (4) Diabetes mellitus: Qualifiers: Diabetes mellitus type: type 2 Diabetes mellitus complication status: with hyperglycemia Diabetes mellitus training instructor insulin use: with custodial use Qualified Code(s): E11.65 - Type 2 diabetes mellitus with hyperglycemia; Z79.4 - detention (current) use of insulin Code(s): E11.9 - Type 2 diabetes mellitus without complications Status: Chronic Assessment and Plan: continue Accu-Cheks, high-dose sliding scale insulin - added Levemir (5) COPD (chronic obstructive pulmonary disease): Qualifiers: COPD type: unspecified COPD Qualified Code(s): J44.9 - Chronic obstructive pulmonary disease, unspecified Code(s): J44.9 - Chronic obstructive pulmonary disease, unspecified Status: Chronic Assessment and Plan: patient with history of COPD, continues to smoke - continue bronchodilators (6) CHF (congestive heart failure): Qualifiers: Heart failure type: unspecified Heart failure chronicity: chronic Qualified Code(s): I50.9 - Heart failure, unspecified Code(s): I50.9 - Heart failure, unspecified Status: Chronic Assessment and Plan: patient on Lasix at home will continue (7) HTN (hypertension): Qualifiers: Hypertension type: essential hypertension Qualified Code(s): I10 - Essential (primary) hypertension Code(s): I10 - Essential (primary) hypertension Status: Chronic Assessment and Plan: continue carvedilol, doxazosin, isosorbide, losartan which are his home medication (8) GERD (gastroesophageal reflux disease): Qualifiers: Esophagitis presence: esophagitis presence not specified Qualified Code(s): K21.9 - Gastro-esophageal reflux disease without esophagitis Code(s): K21.9 - Gastro-esophageal reflux disease without esophagitis Status: Chronic Assessment and Plan: continue Protonix (9) HLD (hyperlipidemia): Qualifiers: Hyperlipidemia type: unspecified Qualified Code(s): E78.5 - Hyperlipidemia, unspecified Code(s): E78.5 - Hyperlipidemia, unspecified Status: Chronic Assessment and Plan: continue atorvastatin (10) TAMIR on CPAP: Code(s): G47.33 - Obstructive sleep apnea (adult) (pediatric); Z99.89 - Dependence on other enabling machines and devices Status: Chronic Assessment and Plan: obstructive sleep apnea, continue CPAP at night (11) Chronic anticoagulation: Code(s): Z79.01 - detention (current) use of anticoagulants Status: Chronic Assessment and Plan: patient with peripheral vascular disease, continue Xarelto Additional Plan discussed with patient updated with his condition and plan of care. Code status: Full code Subjective Date/time seen: 10/31/19
[2019-10-31] MEDS: INSULIN DETEMIR 100 UNITS/ML 8 UNITS SUB-Q ×2 (15:41→19:59)
[2019-10-31] MEDS: INSULIN ASPART (*BKC) 100 UNITS/ML SUB-Q (17:17)
[2019-10-31 17:28] LABS: Glucose Point of Care 300 (65-105)
[2019-10-31] MEDS: ATORVASTATIN 40 MG TABLET 80 MG PO (19:55)
[2019-10-31] MEDS: LOSARTAN POTASSIUM 100 MG TABLET PO (19:59)
[2019-10-31] MEDS: DOXAZOSIN MESYLATE 2 MG TABLET PO (19:59)
[2019-10-31] MEDS: ISOSORBIDE MONONITRATE 30 MG TAB.ER.24H PO (20:00)
[2019-10-31 20:06] LABS: Glucose Point of Care 278 (65-105)
--- NOTE | 2019-10-31 21:54 | PC.NURSE ---
[id number] recieved tx from icu to room 246
--- NOTE | 2019-10-31 22:02 | PC.NURSE ---
PATIENT WAS TRANSFERRED TO [facility] WITH ALL BELONGINGS. VITAL SIGNS STABLE AT TIME OF TRANSFER. REPORT WAS CALLED TO [facility]. WILL CONTINUE TO MONITOR PATIENT FOR CHANGES IN STATUS AND WILL FOLLOW CURRENT PLAN OF CARE.
[2019-11-01] VITALS (19 sets, daily range): BP systolic 109–117; BP diastolic 46–66; PULSE 65–79; RESP 14–22; TEMP 35.8–36.4; O2SAT 95–98
[2019-11-01] MEDS: IPRATROPIUM BR 0.02% INH SOLN 0.5 MG/2.5 ML VIAL INHALATION ×4 (01:32→21:24)
[2019-11-01] MEDS: ALBUTEROL SULFATE NEB 2.5 MG/0.5 ML INH INHALATION ×4 (01:32→21:24)
[2019-11-01 07:44] LABS: Glucose Point of Care 215 (65-105)
[2019-11-01] MEDS: FUROSEMIDE INJ 40 MG/4 ML VIAL IV PUSH (08:08)
[2019-11-01] MEDS: PANTOPRAZOLE 40 MG TABLET PO ×2 (08:08→21:09)
[2019-11-01] MEDS: amLODIPine BESYLATE 5 MG TABLET 10 MG PO (08:09)
[2019-11-01] MEDS: carvediloL 25 MG TABLET PO ×2 (08:09→16:41)
[2019-11-01] MEDS: INSULIN DETEMIR 100 UNITS/ML 8 UNITS SUB-Q ×2 (08:11→20:57)
[2019-11-01] MEDS: INSULIN ASPART (*BKC) 100 UNITS/ML SUB-Q ×3 (08:12→16:58)
[2019-11-01] MEDS: RIVAROXABAN 2.5 MG TABLET PO ×2 (09:53→16:41)
[2019-11-01] MEDS: ASPIRIN 81 MG CHEWABLE TABLET PO (09:53)
[2019-11-01 11:14] LABS: Glucose Point of Care 264 (65-105)
--- NOTE | 2019-11-01 12:13 | ECG_ITS ---
Measurements Intervals [place] Rate: 68 P: 26 MI: 171 QRS: -6 QRSD: 157 T: 22 QT: 444 QTc: 475 Interpretive Statements SINUS RHYTHM RIGHT BUNDLE BRANCH BLOCK INFERIOR INFARCT, AGE INDETERMINATE ABNORMAL ECG Electronically Signed On 11-01-2019 12:53:21 CDT by Mathew Landon D.O.
--- NOTE | 2019-11-01 16:24 | PM.IMPN ---
Progress Note: A&P Assessment and Plan (1) Dyspnea: Qualifiers: Dyspnea type: unspecified Qualified Code(s): R06.00 - Dyspnea, unspecified Code(s): R06.00 - Dyspnea, unspecified Status: Acute Assessment and Plan: r/o COPD exacerbation, mild CHF exacerbation, vs. COVID-19 infection. Continue supportive care. The patient is not requiring oxygen supplementation at this time. Continue bronchodilators. 11/01/19 16:24 patient is 59-year-old male with history coronary artery disease status post stent, diabetes, COPD and morbid obesity he presented emergency department with a complaint of chest his 3 sets of cardiac enzymes were negative, he was seen by intertype operator and did not suspect chest pains is related to coronary artery disease, and no further workup was recommended, patient is COVID test is negative, patient still complains of cough shortness of breath and wheezing, denies any fever or chills patient does have history of COPD will start the patient on low-dose Solu-Medrol continue updraft and doxycycline will continue to monitor and reassess the patient tomorrow and further recommendation to follow (2) Chest pain: Qualifiers: Chest pain type: unspecified Qualified Code(s): R07.9 - Chest pain, unspecified Code(s): R07.9 - Chest pain, unspecified Status: Acute Assessment and Plan: r/o ACS. Trend troponin. Check another EKG. Telemetry. Nitro prn for chest pain. Cardiology consultation. (3) Suspected 2019 novel coronavirus infection: Code(s): Z20.828 - Contact with and (suspected) exposure to other viral communicable diseases Status: Acute Assessment and Plan: COVID-19 results pending. Continue droplet precautions. Continue supportive care. (4) Type 2 diabetes mellitus: Qualifiers: Diabetes mellitus half-way insulin use: without intermediate teacher use Diabetes mellitus complication status: without complication Qualified Code(s): E11.9 - Type 2 diabetes mellitus without complications Code(s): E11.9 - Type 2 diabetes mellitus without complications Status: Chronic Assessment and Plan: Accuchecks, SSI coverage, Hypoglycemia protocol. Continue metformin. (5) COPD (chronic obstructive pulmonary disease): Qualifiers: COPD type: unspecified COPD Qualified Code(s): J44.9 - Chronic obstructive pulmonary disease, unspecified Code(s): J44.9 - Chronic obstructive pulmonary disease, unspecified Status: Chronic Assessment and Plan: Continue bronchodilators. (6) CHF (congestive heart failure): Qualifiers: Heart failure type: unspecified Heart failure chronicity: chronic Qualified Code(s): I50.9 - Heart failure, unspecified Code(s): I50.9 - Heart failure, unspecified Status: Chronic Assessment and Plan: The patient appears to have mildly increased congestion but not requiring any supplemental oxygen at this time. Continue home lasix therapy and consider extra IV bolus dosing if the patient's respiratory function worsens. Monitor Is and Os, daily weights. (7) GERD (gastroesophageal reflux disease): Qualifiers: Esophagitis presence: esophagitis presence not specified Qualified Code(s): K21.9 - Gastro-esophageal reflux disease without esophagitis Code(s): K21.9 - Gastro-esophageal reflux disease without esophagitis Status: Chronic Assessment and Plan: Continue omeprazole. (8) HTN (hypertension): Qualifiers: Hypertension type: essential hypertension Qualified Code(s): I10 - Essential (primary) hypertension Code(s): I10 - Essential (primary) hypertension Status: Chronic Assessment and Plan: Stable. Monitor blood pressure. Continue Coreg, losartan. (9) HLD (hyperlipidemia): Qualifiers: Hyperlipidemia type: unspecified Qualified Code(s): E78.5 - Hyperlipidemia, unspecified Code(s): E78.5 - Hy
[2019-11-01] MEDS: methylPREDNISolone SOD SUCC 125 MG VIAL 60 MG IV PUSH (16:40)
[2019-11-01 16:56] LABS: Glucose Point of Care 223 (65-105)
[2019-11-01] MEDS: DOXAZOSIN MESYLATE 2 MG TABLET PO (21:09)
[2019-11-01] MEDS: ISOSORBIDE MONONITRATE 30 MG TAB.ER.24H PO (21:09)
[2019-11-01] MEDS: LOSARTAN POTASSIUM 100 MG TABLET PO (21:09)
[2019-11-01] MEDS: ATORVASTATIN 40 MG TABLET 80 MG PO (21:09)
[2019-11-01 23:24] LABS: Glucose Point of Care 268 (65-105)
[2019-11-02] VITALS (9 sets, daily range): BP systolic 129–136; BP diastolic 66–73; PULSE 70–82; RESP 19–20; TEMP 36.1; O2SAT 94–97
[2019-11-02] MEDS: ALBUTEROL SULFATE NEB 2.5 MG/0.5 ML INH INHALATION ×2 (02:37→08:50)
[2019-11-02] MEDS: IPRATROPIUM BR 0.02% INH SOLN 0.5 MG/2.5 ML VIAL INHALATION ×2 (02:37→08:50)
[2019-11-02 08:00] LABS: Glucose Point of Care 259 (65-105)
[2019-11-02] MEDS: INSULIN ASPART (*BKC) 100 UNITS/ML SUB-Q ×2 (08:01→11:55)
[2019-11-02] MEDS: ASPIRIN 81 MG CHEWABLE TABLET PO (08:02)
[2019-11-02] MEDS: FUROSEMIDE INJ 40 MG/4 ML VIAL IV PUSH (08:03)
[2019-11-02] MEDS: PANTOPRAZOLE 40 MG TABLET PO (08:03)
[2019-11-02] MEDS: methylPREDNISolone SOD SUCC 125 MG VIAL 60 MG IV PUSH (08:03)
[2019-11-02] MEDS: carvediloL 25 MG TABLET PO (08:03)
[2019-11-02] MEDS: amLODIPine BESYLATE 5 MG TABLET 10 MG PO (08:03)
[2019-11-02] MEDS: RIVAROXABAN 2.5 MG TABLET PO (08:04)
[2019-11-02] MEDS: INSULIN DETEMIR 100 UNITS/ML 8 UNITS SUB-Q (08:08)
--- NOTE | 2019-11-02 08:38 | P.CDI_ITS ---
CDI Query Clarification Request - CHF, chronic, has been documented - Last echo was 09/30/19 in EMR - 10/29 CXR impression: cardiomegaly with mild interstitial edema - Dr Hauser ordered Lasix 40mg IV daily Please further clarify type of CHF: * Diastolic * Systolic * Both diastolic and systolic * Unable to determine <Alejandra Ayala RN - Last Filed: 11/02/19 08:43>
[2019-11-02 09:32] LABS: Hematocrit 41.4 % (42.0-52.0); Hemoglobin 14.5 g/dL (14.0-18.0); Mean Corpuscular Hemoglobin 30.6 pg (26-34); Mean Corpuscular Volume 87.3 fl (80-100); Mean Platelet Volume 11.9 fl (7.4-10.4); Platelet Count Result 132 k/mm3 (150-375); Red Blood Count 4.74 M/mm3 (4.6-6.20); Red Cell Distribution Width 13.2 % (11.5-14.5); White Blood Count 11.3 K/mm3 (4.5-10.0)
[2019-11-02 09:45] LABS: Anion Gap 14 mmol/L (8-16); Blood Urea Nitrogen 24 mg/dL (9-20); Carbon Dioxide 23 mmol/L (22-30); Chloride 94 mmol/L (98-107); Estimated CRCL calculation 117 ml/min; Estimated Glomerular Filt Rate > 60; Glucose 399 mg/dL (75-110); Magnesium 1.6 mg/dL (1.6-2.3); Potassium 4.9 mmol/L (3.4-5.0); Sodium 131 mmol/L (137-145)
[2019-11-02 11:52] LABS: Glucose Point of Care 324 (65-105)
--- NOTE | 2019-11-02 12:08 | PM.DS ---
DS: Admitting Diagnosis Admitting Diagnosis Admitting Diagnosis: chest pain, copd DS: Discharge Diagnosis Discharge Diagnosis (1) Dyspnea: Qualifiers: Dyspnea type: unspecified Qualified Code(s): R06.00 - Dyspnea, unspecified Code(s): R06.00 - Dyspnea, unspecified Status: Acute Assessment and Plan: r/o COPD exacerbation, mild CHF exacerbation, vs. COVID-19 infection. Continue supportive care. The patient is not requiring oxygen supplementation at this time. Continue bronchodilators. 11/01/19 16:24 patient is 59-year-old male with history coronary artery disease status post stent, diabetes, COPD and morbid obesity he presented emergency department with a complaint of chest his 3 sets of cardiac enzymes were negative, he was seen by respite coordinator and did not suspect chest pains is related to coronary artery disease, and no further workup was recommended, patient is COVID test is negative, patient still complains of cough shortness of breath and wheezing, denies any fever or chills patient does have history of COPD will start the patient on low-dose Solu-Medrol continue updraft and doxycycline will continue to monitor and reassess the patient tomorrow and further recommendation to follow (2) Chest pain: Qualifiers: Chest pain type: unspecified Qualified Code(s): R07.9 - Chest pain, unspecified Code(s): R07.9 - Chest pain, unspecified Status: Ruled-out Assessment and Plan: r/o ACS. Trend troponin. Check another EKG. Telemetry. Nitro prn for chest pain. Cardiology consultation. (3) Suspected 2019 novel coronavirus infection: Code(s): Z20.828 - Contact with and (suspected) exposure to other viral communicable diseases Status: Ruled-out Assessment and Plan: COVID-19 results pending. Continue droplet precautions. Continue supportive care. (4) Type 2 diabetes mellitus: Qualifiers: Diabetes mellitus alf insulin use: without alf use Diabetes mellitus complication status: without complication Qualified Code(s): E11.9 - Type 2 diabetes mellitus without complications Code(s): E11.9 - Type 2 diabetes mellitus without complications Status: Chronic Assessment and Plan: Accuchecks, SSI coverage, Hypoglycemia protocol. Continue metformin. (5) COPD (chronic obstructive pulmonary disease): Qualifiers: COPD type: unspecified COPD Qualified Code(s): J44.9 - Chronic obstructive pulmonary disease, unspecified Code(s): J44.9 - Chronic obstructive pulmonary disease, unspecified Status: Chronic Assessment and Plan: Continue bronchodilators. (6) CHF (congestive heart failure): Qualifiers: Heart failure type: unspecified Heart failure chronicity: chronic Qualified Code(s): I50.9 - Heart failure, unspecified Code(s): I50.9 - Heart failure, unspecified Status: Chronic Assessment and Plan: The patient appears to have mildly increased congestion but not requiring any supplemental oxygen at this time. Continue home lasix therapy and consider extra IV bolus dosing if the patient's respiratory function worsens. Monitor Is and Os, daily weights. (7) GERD (gastroesophageal reflux disease): Qualifiers: Esophagitis presence: esophagitis presence not specified Qualified Code(s): K21.9 - Gastro-esophageal reflux disease without esophagitis Code(s): K21.9 - Gastro-esophageal reflux disease without esophagitis Status: Chronic Assessment and Plan: Continue omeprazole. (8) HTN (hypertension): Qualifiers: Hypertension type: essential hypertension Qualified Code(s): I10 - Essential (primary) hypertension Code(s): I10 - Essential (primary) hypertension Status: Chronic Assessment and Plan: Stable. Monitor blood pressure. Continue Coreg, losartan. (9) HLD (hyperlipidemia): Qualifiers: Hyperlipidemia
== END 2019-11-02 13:23 | disposition home or self-care (01) | DRG 204 ==
LOC: ANHED 21:56 → ANHIMU 22:15 → ANHICU 23:02 → ANH2MED 10-31 21:51
PROVIDERS: Emergency Medicine; Admitting Provider Family Medicine; Emergency Provider General Practice; PCP Registered Nurse; Visit Provider Family Medicine
DX: R06.00 Dyspnea, unspecified; Z68.42 Body mass index [BMI] 45.0-49.9, adult; E66.01 Morbid (severe) obesity due to excess calories; E11.42 Type 2 diabetes mellitus with diabetic polyneuropathy; E11.51 Type 2 diabetes mellitus with diabetic peripheral angiopathy without gangrene; I11.0 Hypertensive heart disease with heart failure; I50.9 Heart failure, unspecified; Z20.828 Contact with and (suspected) exposure to other viral communicable diseases; R07.9 Chest pain, unspecified; J44.9 Chronic obstructive pulmonary disease, unspecified; K21.9 Gastro-esophageal reflux disease without esophagitis; E78.5 Hyperlipidemia, unspecified; G47.33 Obstructive sleep apnea (adult) (pediatric); I25.10 Atherosclerotic heart disease of native coronary artery without angina pectoris; E11.65 Type 2 diabetes mellitus with hyperglycemia; I48.91 Unspecified atrial fibrillation; I25.2 Old myocardial infarction; F17.210 Nicotine dependence, cigarettes, uncomplicated; Z79.01 Long term (current) use of anticoagulants; Z79.82 Long term (current) use of aspirin; Z79.84 Long term (current) use of oral hypoglycemic drugs; Z79.899 Other long term (current) drug therapy; Z86.73 Personal history of transient ischemic attack (TIA), and cerebral infarction without residual deficits; Z95.5 Presence of coronary angioplasty implant and graft; Z99.89 Dependence on other enabling machines and devices
CPT/HCPCS: 36415; 71046; 80048; 83735; 83880; 84484; 85025; 85027; 85055; 85610; 85730; 87635; 93005; 94640; 96374; 96376; 99285; A9270; C9803; G0378; J1815; J1940; J2930; J7512; U0003

== ENCOUNTER 2019-11-04 08:46 | Outpatient (RCR) | payer MEDICARE, MEDICAID, SELFPAY ==
--- NOTE | 2019-11-04 10:10 | PTOPEVAL ---
Thank you for referring Vini Zambrano to [facility].? The patient is scheduled to be seen for therapy? 2 x/week for 6 weeks. Please review, sign, date and return this plan of care GISSELLE. I agree with and certify that the following plan of care is medically necessary. Referring Physician Date Admitting Provider: Attending Provider: Floyd Monique MD Referring Provider: *PT Outpatient Evaluation Start: 11/04/19 08:49 Freq: Status: Active Protocol: Document 11/04/19 08:53 TLM (Rec: 11/04/19 09:48 TLM [id number]) Therapy Assessment Status Assessment Status Assessment Status Evaluation Outpatient Past Medical History Past Medical History Source of Past Medical History Recalled from Previous Visit, Confirmed with Patient/Family Neurological History Hx Cerebrovascular Accident (CVA) Yes: CVA X2-MILD LEFT SIDED WEAKNESS USES CANE Hx Transient Ischemic Attacks (TIA) Yes: 5 or 6 Cardiovascular History Hx Angina Yes Hx Cardiac Catheterization Yes Hx Chest Pain Yes Hx Congestive Heart Failure Yes Hx Coronary Artery Disease Yes Hx Coronary Stent Yes: X2 2013,2014 Hx Hypercholesterolemia Yes Hx Hypertension Yes Hx Myocardial Infarction Yes Hx Peripheral Vascular Disease Yes Hx Other Cardiac Disorders Yes: implanted loop recorder, FOLLOWS WITH DR. TONY Respiratory History Hx Chronic Obstructive Pulmonary Disease Yes (COPD) Hx Pneumonia Yes Hx Sleep Apnea Yes: USES CPAP Gastrointestinal History Hx Cholecystectomy Yes Hx Gastroesophageal Reflux Disease Yes Hx Gastrointestinal Bleed Yes: 2014 Hx Polyps Yes Hx Ulcer Yes Genitourinary History Hx Kidney Stones Yes: LITHROTRIPSY MULTIPLE Hx Urinary Tract Infection Yes Musculoskeletal History Hx Arthritis Yes Hx Back Pain Yes Hematological History Hx Hematological Disorders No Significant History Endocrine History Hx Diabetes Yes: NIDDM HEENT History Hx Tonsillectomy Yes Hx Dental Problems Yes: [place] Hx Other HEENT Disorders Yes: [place]-wears hearing aids- not present Integumentary History Hx Eczema Yes Hx Psoriasis Yes Reproductive History Hx Reproductive Disorders No Significant History Psychosocial History Hx Anxiety Yes Hx Depression Yes Hx Psychiatric Treatment Yes: 18-20 years old Pain History History of Any Previous or O
--- NOTE | 2019-11-15 13:45 | PCPTNOTE ---
Patient called & cancelled scheduled appointment for two weeks, stating he is having difficulty breathing and feeling well wants to make sure he is okay before returning back to therapy.
--- NOTE | 2019-11-29 07:40 | PCPTNOTE ---
Patient called & cancelled scheduled appointment this date due to still not feeling well.
--- NOTE | 2019-12-01 08:30 | PCPTNOTE ---
Patient did not show up for scheduled appointment this date; left voicemail for next appointment.
--- NOTE | 2019-12-01 17:52 | PCPTNOTE ---
Patient called back regarding left voicemail from missing treatment this morning. He apologized and mentioned he was in the ER last night due to still not feeling well and increase dizziness. Wants to be discharged at this time due to situation and understands he will need a new order for when he can return. Notified discharging PT of situation.
--- NOTE | 2019-12-02 10:36 | PCPTNOTE ---
Admitting Provider: Attending Provider: Floyd Monique MD Patient:Vini Zambrano Date of :1960 Discharge Note Patient has not returned for any further treatments since his initial evaluation on 11/04/2019, therefore he will be discharged at this time. He requested therapy to be discharged due to he is not feeling well. Patient?s initial visit was on 11/04/2019 09:00 and (he/she) had a total of 1 visits. The goals have not been met. Thank you for referring this patient to [facility]. Please review, sign, date and return this discharge summary GISSELLE. I have been updated about the patient's current status and I agree with discharge from the above service at this time. Referring Physician Date
== END 2019-12-05 09:17 | disposition home or self-care (01) ==
LOC: ANHPT 08:46
PROVIDERS: PCP Registered Nurse; Visit Provider Orthopaedic Surgery
DX: M25.562 Pain in left knee (principal)
CPT/HCPCS: 97110; 97161

== ENCOUNTER 2019-11-07 15:24 | Observation (INO) | payer MEDICARE, MEDICAID, SELFPAY ==
[2019-11-07] VITALS (9 sets, daily range): BP systolic 118–139; BP diastolic 58–76; PULSE 71–85; RESP 20–28; TEMP 36.1–36.4; O2SAT 94–97
--- NOTE | ~2019-11-07 | US_ITS ---
EXAMINATION: US venous doppler [facility] DATE: 11/08/2019 12:52 INDICATION: Left lower limb edema TECHNIQUE: Shepherd scale images without and with compression and Doppler images of the left lower extrem ity veins were obtained. COMPARISON: 05/26/2018 FINDINGS: The left common femoral vein, profunda femoral vein, femoral vein, popliteal vein, peroneal trunk, posterior tibial veins, and greater saphenous vein are patent. IMPRESSION: 1. Patent left lower extremity veins. No evidence of deep venous thrombosis. Reviewed, dictated and finalized at location B.
--- NOTE | ~2019-11-07 | XR_ITS ---
XR chest 1V portable DATE: 11/07/2019 15:49 INDICATION: Shortness of breath, dizziness, syncope. TECHNIQUE: Portable upright AP chest on 11/07/2019 at 1545 hours COMPARISON: 10/30/2019 AP and lateral chest FINDINGS: Limited portable chest with over penetrated lungs. monitoring coordinator device overlies the left lower chest. Heart size is not optimally evaluated on AP projection because of magnification. Mild infiltrate or a telectasis is suggested at the lung bases. The lungs otherwise appear clear. No pulmonary vascular co ngestion or pneumothorax is evident. Diffuse osteopenia. Degenerative spurring of the thoracic spine. IMPRESSION: Mild infiltrate or atelectasis at the lung bases; limited chest radiograph Reviewed, dictated and finalized at location A. IMPRESSION: Mild infiltrate or atelectasis at the lung bases; limited chest rad iograph
--- NOTE | 2019-11-07 15:26 | ECG_ITS ---
Measurements Intervals [place] Rate: 82 P: 38 SC: 149 QRS: 24 QRSD: 145 T: 42 QT: 404 QTc: 473 Interpretive Statements SINUS RHYTHM RIGHT BUNDLE BRANCH BLOCK BASELINE ARTIFACT- III, AVL, AVF ABNORMAL ECG Electronically Signed On 11-07-2019 15:54:17 CDT by Mathew Landon D.O.
--- NOTE | 2019-11-07 15:32 | ED.SYNCOPE ---
HPI - Syncope General Chief Complaint: Syncope Stated Complaint: he's passing out Time Seen by Provider: 11/07/19 15:31 Source: patient and EMS Mode of arrival: EMS Limitations: no limitations History of Present Illness HPI narrative: 59 years old white male, morbidly obese presents with syncope. Patient reports that he was sitting watching TV and blacked out, also blacked out twice while standing and walking. Denies any injuries. The above symptoms started today, no weakness. Patient lives with his who was not available at that time. Patient reported intermittent dizziness, wobbly feeling and nausea since last night. Patient denies any fever, chills, vomiting, chest pain, diarrhea or constipation. Patient reports some shortness of breath since yesterday. MD complaint: collapsed Related Data Home Medications Medication Instructions Recorded Confirmed Breo Ellipta 1 inh INHALATION DAILY 01/24/19 10/30/19 Trulicity 1.5 mg SUBCUT WEEKLY 01/24/19 10/30/19 Xarelto 2.5 mg PO BID 01/24/19 10/30/19 amlodipine 10 mg PO DAILY 01/24/19 10/30/19 bupropion HCl 150 mg PO BID 01/24/19 10/30/19 doxazosin 2 mg PO HS 01/24/19 10/30/19 losartan 100 mg PO HS 01/24/19 10/30/19 metformin 1,000 mg PO BID 01/24/19 10/30/19 ciclopirox 8 % topical solution 1 applic TOPICAL DAILY PRN 04/13/19 10/30/19 omeprazole 40 mg capsule,delayed 40 mg PO DAILY 04/13/19 10/30/19 release potassium chloride 20 mEq 20 meq PO DAILY 04/13/19 10/30/19 tablet,extended release carvedilol [Coreg] 25 mg PO BID 04/28/19 10/30/19 isosorbide mononitrate 30 mg PO HS 04/28/19 10/30/19 Combivent Respimat 2 puff INHALATION PRN PRN 05/16/19 10/30/19 atorvastatin 80 mg PO HS 05/16/19 10/30/19 Allergies Allergy/AdvReac Type Severity Reaction Status Date / Time No Known Allergies Allergy Unknown Verified 11/07/19 15:25 Review of Systems Review of Systems: Narrative: CONSTITUTIONAL: Denies fever, chills, or sweats. EYES: Denies visual changes, redness, or discharge. ENT: Denies rhinorrhea, congestion, sore throat, or otalgia. CARDIOVASCULAR: Denies chest pain, palpitations, or edema. RESPIRATORY: Denies cough or dyspnea. GASTROINTESTINAL: Denies abdominal pain, nausea, vomiting, or diarrhea. GENITOURINARY: Denies dysuria or hematuria. SKIN: Denies rash or itching. MUSCULOSKELETAL: Denies back pain, joint pain, or myalgia. NEUROLOGIC: Denies headache, numbness, or weakness. PSYCHIATRIC: Denies anxiety or depression. [facility] Past Medical History Medical History Anxiety Arthritis CAD (coronary artery disease) CHF (congestive heart failure) Constipation COPD (chronic obstructive pulmonary disease) CVA (cerebral vascular accident) With mild left-sided weakness. Depression Diabetes mellitus Type 2 diabetes. Diarrhea Dizziness Eczema Fracture of fifth toe, right, closed GERD (gastroesophageal reflux disease) GI bleed Headache Hearing loss History of blood clots History of gastric ulcer HLD (hyperlipidemia) Hoarseness HTN (hypertension) Kidney stones Left knee pain Medial meniscus tear Myocardial infarction Nausea and vomiting TAMIR on CPAP Peripheral neuropathy Pneumonia Psoriasis PVD (peripheral vascular disease) Rectal polyp Seasonal allergies Shortness of breath Sleep apnea Sleep disorder Stomach pain TIA (transient ischemic attack) Type 2 diabetes mellitus UTI (urinary tract infection) Vertigo Vision abnormalities Weight gain Surgical History Surgical History H/O heart artery stent 2 H/O lithotripsy History of cardiac catheterization 2 stents History of loop recorder History of rectal polypectomy Hx of cholecystectomy Hx of tonsillectomy Family History Family History Mother Diabetes mellitus Patient's mother is Kidney stones Father Family history of cardiovascular dis
[2019-11-07 15:43] LABS: Basophils Percent Auto 0.2 % (0.2-1.2); Eosinophils Percent Auto 0.2 % (0-4.4); Hematocrit 41.7 % (42.0-52.0); Hemoglobin 14.2 g/dL (14.0-18.0); Immature Granulocyte Absolute 0.07 K/mm3 (0.00-0.031); Immature Granulocyte Percent A 0.7 % (0-0.5); Lymphocytes Absolute Auto 0.58 K/mm3 (0.9-3.2); Lymphocytes Percent Auto 5.4 % (18.3-44.2); Mean Corpuscular HGB Conc 34.1 g/dl (32-36); Mean Corpuscular Hemoglobin 30.5 pg (26-34); Mean Corpuscular Volume 89.7 fl (80-100); Mean Platelet Volume 11.8 fl (7.4-10.4); Monocytes Absolute Auto 0.2 K/mm3 (0.1-0.6); Monocytes Percent Auto 1.9 % (2.6-8.5); Neutrophils Absolute Auto 9.8 K/mm3 (1.3-6.7); Neutrophils Percent Auto 91.6 % (45.5-73.1); Platelet Count Result 146 k/mm3 (150-375); Red Blood Count 4.65 M/mm3 (4.6-6.20); Red Cell Distribution Width 13.4 % (11.5-14.5); White Blood Count 10.7 K/mm3 (4.5-10.0)
[2019-11-07 15:56] LABS: Anion Gap 12 mmol/L (8-16); Blood Urea Nitrogen 22 mg/dL (9-20); Carbon Dioxide 23 mmol/L (22-30); Chloride 96 mmol/L (98-107); Estimated CRCL calculation 97 ml/min; Estimated Glomerular Filt Rate > 60; Glucose 420 mg/dL (75-110); Potassium 4.8 mmol/L (3.4-5.0); Sodium 131 mmol/L (137-145)
[2019-11-07 15:59] LABS: Alveolar/Arterial O2 Gradient 19.9 mmHg; Base Excess ABG -2.5 mEq/l (+/-2.0); Device ROOM AIR; Fractional Inspired Oxygen 21 %; HCO3 ABG 21.5 mEq/l (22.0-26.0); Modified Allen's Test Pass; Oxygen Content ABG 19.4 %vol (16.0-22.0); Oxygen Saturation ABG 96.8 % (95.0-100.0); Oxyhemoglobin 94.2 % THb (90.0-100.0); PO2 ABG 87.9 mmHg (80.0-100.0); PO2 FiO2 Ratio Arterial Blood 4.19 %; Site Drawn LEFT RADIAL; Total Hemoglobin 14.6 g/dL (12.0-18.0); pH ABG 7.406 (7.350-7.450)
[2019-11-07 16:00] LABS: INR 1.2; Prothrombin Time 15.3 Seconds (11.1-14.7)
[2019-11-07 16:01] LABS: Partial Thromboplastin Time 28.4 SECONDS (22.3-36.8)
[2019-11-07 16:03] LABS: D Dimer 1.02 ug/mL (<0.48)
[2019-11-07 16:08] LABS: Troponin I < 0.012 ng/mL (0.000-0.034)
[2019-11-07 17:03] LABS: Add Urine Microscopic? YES; Appearance Urine Clear (Clear); Bilirubin Urine Negative (Negative); Blood Urine 2+ (Negative); Color Urine Yellow (Yellow); Glucose Urine UA 3+ mg/dL (Negative); Ketones Urine Negative (Negative); Leukocyte Esterase Ur Negative LEU/UL (Negative); Nitrate Urine Negative (Negative); Protein Urine Negative (Negative); RBC Urine 21-50 /hpf (0-2); Specific Grav Ur 1.027 (1.001-1.035); Urobilinogen Urine Negative mg/dL (<2.0); WBC Urine 0-3 /hpf
[2019-11-07] MEDS: SODIUM CHLORIDE 0.9% IV 1,000 ML 999 ML IV CONT ×2 (17:20→18:56)
[2019-11-07] MEDS: INSULIN HUMAN REGULAR (*BKC) 100 UNITS/ML 10 UNITS IV PUSH (17:20)
[2019-11-07 18:15] LABS: Glucose Point of Care 282 (65-105)
--- NOTE | 2019-11-07 18:44 | ADMGEN ---
This patient, Vini Zambrano, was admitted to [facility] Surg Room 314-01. Patient/family oriented to hospital policies and general routines including ID bracelet, bed and alarms, visiting hours, pain management, procedures, bathroom and other care routines, personal items, smoking policy, room service/diet, and visiting hours. Valuables list has been completed. Information on how to activate the Rapid Response Team has been discussed. Patient/Family are encouraged to report perceived risks to care and to ask questions if they do not understand what they are told or what they should do.
[2019-11-07 20:07] LABS: Troponin I < 0.012 ng/mL (0.000-0.034)
[2019-11-07] MEDS: SODIUM CHLORIDE 0.9% IV 1,000 ML 150 ML IV CONT (21:51)
[2019-11-07 22:14] LABS: Troponin I < 0.012 ng/mL (0.000-0.034)
--- NOTE | 2019-11-07 23:46 | PM.IMHP ---
H&P: HPI History of Present Illness Date/Time: 11/07/19 23:00 Chief complaint: Possible passing out, fall Narrative: Vini Zambrano is a 59 year old male with a past medical history of COPD, CHF, diabetes mellitus, peripheral neuropathy and obstructive sleep apnea who presented to the ER with concern for possible passing out and fall. He was sitting at home watching TV in the next thing he knew he would jerk and startle. He does not know how long he would be out. He does not think that he fell asleep because he states he cannot sleep without his CPAP. He also reports that 2 times today when he was standing up and walking across the room he became dizzy and got his feet tangled and fell. He reports that he did not actually lose consciousness although and was aware enough to know that he was falling and that he did not hit his head. He reports that the dizziness was not truly the room spinning but he did feel like things were moving around on him. He denies feeling lightheaded. He reports a couple of weeks ago before his last hospitalization his home health care provider had checked his orthostatic blood pressures any at a 20% drop in his blood pressures with position changes. However I just had nursing staff check the patient's orthostatics at this time and they were negative. He reports shortness of breath but states that he just finished his last dose of steroids yesterday (prednisone 60 mg). He reports that his glucoses at home have been in the 170s. However when he arrived to the ER his glucoses were 420. The patient stated that he ate a couple of pieces of pizza as a snack before he came to the ER. He has noticed increased urinary frequency. He states that he is getting up 3-5 times a night to urinate instead of his usual 2 times a night. He denies any dysuria, increased urgency or incomplete bladder emptying. He has been having normal bowel movements without diarrhea, hematochezia or melena. He has not been having any palpitations. He still has a mild nonproductive cough. He does report increased paresthesias to his left foot compared to baseline. He has noticed a mild increase in swelling of his left foot as well. He reports that his whole left leg is aching more than usual. Review of Systems Review of Systems: Narrative: 12 systems were reviewed with pertinent positives and negatives per HPI. Except as documented in the HPI, all other systems were reviewed and are negative. [facility] Past Medical History Medical History Anxiety Arthritis CAD (coronary artery disease) CHF (congestive heart failure) Constipation COPD (chronic obstructive pulmonary disease) CVA (cerebral vascular accident) With mild left-sided weakness. Depression Diabetes mellitus Type 2 diabetes. Diarrhea Dizziness Eczema Fracture of fifth toe, right, closed GERD (gastroesophageal reflux disease) GI bleed Headache Hearing loss History of blood clots History of gastric ulcer HLD (hyperlipidemia) Hoarseness HTN (hypertension) Kidney stones Left knee pain Medial meniscus tear Myocardial infarction Nausea and vomiting TAMIR on CPAP Peripheral neuropathy Pneumonia Psoriasis PVD (peripheral vascular disease) Rectal polyp Seasonal allergies Shortness of breath Sleep apnea Sleep disorder Stomach pain TIA (transient ischemic attack) Type 2 diabetes mellitus UTI (urinary tract infection) Vertigo Vision abnormalities Weight gain Surgical History Surgical History H/O heart artery stent 2 H/O lithotripsy History of cardiac catheterization 2 stents History of loop recorder History of rectal polypectomy Hx of cholecystectomy Hx of tonsillectomy Family History Family History Mother Diabetes mellitus Kidney stones Father Acute myocardial infarction Kidney stones He
[2019-11-08] VITALS (17 sets, daily range): BP systolic 113–161; BP diastolic 45–82; PULSE 66–88; RESP 20–29; TEMP 36.2–36.6; O2SAT 97–98
[2019-11-08] MEDS: RIVAROXABAN 2.5 MG TABLET PO ×2 (00:42→08:47)
[2019-11-08] MEDS: ATORVASTATIN 40 MG TABLET 80 MG PO (00:42)
[2019-11-08] MEDS: ISOSORBIDE MONONITRATE 30 MG TAB.ER.24H PO (00:43)
[2019-11-08] MEDS: DOXAZOSIN MESYLATE 2 MG TABLET PO (00:43)
[2019-11-08] MEDS: carvediloL 25 MG TABLET PO ×2 (00:43→08:48)
[2019-11-08] MEDS: LOSARTAN POTASSIUM 100 MG TABLET PO (00:43)
[2019-11-08 00:50] LABS: Glucose Point of Care 255 (65-105)
[2019-11-08] MEDS: ALBUTEROL SULFATE NEB 2.5 MG/0.5 ML INH INHALATION ×3 (02:19→14:37)
[2019-11-08] MEDS: IPRATROPIUM BR 0.02% INH SOLN 0.5 MG/2.5 ML VIAL INHALATION ×3 (02:19→14:37)
[2019-11-08 06:40] LABS: Anion Gap 9 mmol/L (8-16); Blood Urea Nitrogen 20 mg/dL (9-20); Calcium 8.3 mg/dL (8.4-10.2); Carbon Dioxide 25 mmol/L (22-30); Chloride 99 mmol/L (98-107); Estimated CRCL calculation 118 ml/min; Estimated Glomerular Filt Rate > 60; Glucose 241 mg/dL (75-110); Potassium 3.9 mmol/L (3.4-5.0); Sodium 133 mmol/L (137-145)
[2019-11-08 07:30] LABS: Glucose Point of Care 234 (65-105)
[2019-11-08] MEDS: ASPIRIN 81 MG CHEWABLE TABLET PO (08:47)
[2019-11-08] MEDS: POTASSIUM CHLORIDE 20 MEQ TABLET.ER PO (08:49)
[2019-11-08] MEDS: metFORMIN HCL 500 MG TABLET 1000 MG PO (08:49)
[2019-11-08] MEDS: PANTOPRAZOLE 40 MG TABLET PO (08:49)
[2019-11-08] MEDS: DOXYCYCLINE HYCLATE 100 MG TABLET PO (08:49)
[2019-11-08] MEDS: FUROSEMIDE 40 MG TABLET PO (08:51)
[2019-11-08] MEDS: INSULIN ASPART (*BKC) 100 UNITS/ML SUB-Q ×2 (08:56→13:17)
--- NOTE | 2019-11-08 11:52 | PM.DS ---
DS: Admitting Diagnosis Admitting Diagnosis Admitting Diagnosis: Possible passing out, fall DS: Discharge Diagnosis Discharge Diagnosis (1) Atypical syncope: Code(s): R55 - Syncope and collapse Status: Acute Assessment and Plan: Given the history he gives, actually suspect that the patient's symptoms may have been him nodding off to sleep and waking up. His story does not seem like a true syncopal event. Orthostatics negative earlier in stay. He states he feels much better today. He may have some autonomic dysfunction given his history of diabetes with peripheral neuropathy. Will repeat orthostatic vital signs this morning; systolic orthostatics negative, diastolic borderline abnormal, although patient asymptomatic. Discussed the importance of slow position changes and using assistive devices while ambulating. F/u with PCP and Cardiology at scheduled appointment times (2) Diabetes mellitus with hyperglycemia: Qualifiers: Diabetes mellitus intermediate insulin use: without intermediate use Diabetes mellitus type: type 2 Qualified Code(s): E11.65 - Type 2 diabetes mellitus with hyperglycemia Code(s): E11.65 - Type 2 diabetes mellitus with hyperglycemia Status: Acute Assessment and Plan: The patient's most recent hemoglobin A1c was 6.1. BGL today is in 200s. Likely elevated glucose due to recent steroids and may be contributing to his polyuria. Patient's glucoses have improved after 1 dose of IV insulin was given in the ER. Will continue the patient's home medications and moderate sliding scale insulin with Accu-Cheks a.c. HS during stay (3) Swelling of left lower extremity: Code(s): M79.89 - Other specified soft tissue disorders Status: Acute Assessment and Plan: DVT less likely given exam and that he takes Xarelto. Venous doppler negative for DVT (4) TAMIR on CPAP: Code(s): G47.33 - Obstructive sleep apnea (adult) (pediatric); Z99.89 - Dependence on other enabling machines and devices Status: Chronic Assessment and Plan: CPAP has been ordered. DS: Summary Hospital Course Reason for hospitalization: atypical syncope, DMII with hyperglycemia Hospital Course: Patient is a 59 yo M with history of COPD, CHF, diabetes mellitus, peripheral neuropathy and obstructive sleep apnea who presented to the ER on 11/06 with concern for possible passing out and fall. Patient apparently was sitting in his chair at home watching TV when he jerked and was startled awake. He was concerned that he had a syncopal episode as he cannot sleep without his CPAP and does not think he fell asleep. He also noted that he was dizzy when ambulating and had a fall when his feet got tangled when ambulating; no loss of consciousness but unsure if he hit his head. While in the ED, his glucose was found to be 420 and improved with IV insulin in the Ed. Patient admitted under this setting. Please see H&P for further details. Presenting VS: Temp Pulse Resp BP Pulse Ox 97.6 F 82 25 H 130/68 96 11/07/19 15:32 11/07/19 15:32 11/07/19 15:32 11/07/19 15:32 11/07/19 15:32 Presenting Pertinent labs: WBC 10.7k, Na 131 (133 at discharge), troponin negative x3. CBC, coag, ABG, UA, chemistry otherwise unremarkable Micro: none Imaging: Chest X-Ray 11/07/19 15:52 IMPRESSION: Mild infiltrate or atelectasis at the lung bases; limited chest radiograph Venous Doppler Study 11/08/19 13:24 IMPRESSION: 1. Patent left lower extremity veins. No evidence of deep venous thrombosis. ECG: Interpretive Statements SINUS RHYTHM RIGHT BUNDLE BRANCH BLOCK BASELINE ARTIFACT- III, AVL, AVF ABNORMAL ECG Patient was admitted to the hospitalist service for further evaluation for his symptoms. It was felt that this was likely not a true syncopal epis
[2019-11-08 13:14] LABS: Glucose Point of Care 216 (65-105)
[2019-11-08] MEDS: amLODIPine BESYLATE 5 MG TABLET 10 MG PO (15:49)
== END 2019-11-08 16:10 | disposition home or self-care (01) ==
LOC: ANHED 17:28 → ANH3MEDSUR 18:03
PROVIDERS: Emergency Medicine; Internal Medicine; Physician Assistant; Admitting Provider Family Medicine; Emergency Provider Emergency Medicine; PCP Registered Nurse; Visit Provider Family Medicine
DX: R55 Syncope and collapse (principal); E11.65 Type 2 diabetes mellitus with hyperglycemia; M79.89 Other specified soft tissue disorders; G47.33 Obstructive sleep apnea (adult) (pediatric); I11.0 Hypertensive heart disease with heart failure; I50.9 Heart failure, unspecified; I25.10 Atherosclerotic heart disease of native coronary artery without angina pectoris; J44.9 Chronic obstructive pulmonary disease, unspecified; F41.8 Other specified anxiety disorders; K21.9 Gastro-esophageal reflux disease without esophagitis; E78.5 Hyperlipidemia, unspecified; I25.2 Old myocardial infarction; E11.40 Type 2 diabetes mellitus with diabetic neuropathy, unspecified; E11.51 Type 2 diabetes mellitus with diabetic peripheral angiopathy without gangrene; Z86.73 Personal history of transient ischemic attack (TIA), and cerebral infarction without residual deficits; Z95.5 Presence of coronary angioplasty implant and graft; F17.210 Nicotine dependence, cigarettes, uncomplicated; Z79.84 Long term (current) use of oral hypoglycemic drugs; Z79.82 Long term (current) use of aspirin; Z79.01 Long term (current) use of anticoagulants; Z86.718 Personal history of other venous thrombosis and embolism
CPT/HCPCS: 36415; 36600; 71045; 80048; 81001; 82805; 84484; 85025; 85380; 85610; 85730; 93005; 93971; 94640; 96361; 96374; 99285; A9270; G0378; J1815; J7030

== ENCOUNTER 2019-11-30 17:47 | Emergency (ER) | payer MEDICARE, MEDICAID, SELFPAY ==
--- NOTE | ~2019-11-30 | CT_ITS ---
EXAMINATION: CTA brain DATE: 11/30/2019 21:29 INDICATION: Trach. Left upper extremity paresthesia. TECHNIQUE: Computed tomographic angiography (CTA) of the head was performed without and with 100 mL O mnipaque-350 intravenous contrast. Volume-rendered and maximum intensity projection 3D reconstruction s of the intracranial arteries were created by the technologist on a separate workstation. The dose-l ength product was mGy-cm. COMPARISON: Brain MR dated 09/30/[address] dated 09/29/2019 FINDINGS: No acute intracranial hemorrhage, acute infarction or abnormal extra axial fluid collection. Small ol d lacunar infarct at the right frontoparietal periventricular white matter. There is mild scattered w jose a matter hypoattenuation consistent with chronic small vessel ischemic disease. Ventricles are nor mal and symmetric. No abnormally enhancing brain lesions. No mass/mass effect. The orbits, paranasal sinuses and mastoid air cells are normal. Mild atherosclerotic calcification at the bilateral carotid siphons. There is no hemodynamically sign ificant stenosis in the vertebral, basilar and internal carotid arteries. Vertebral arteries are codo minant. There are no aneurysms identified. Both A1 and P1 segments are patent. Cerebral arterial arb orization appears symmetric. IMPRESSION: 1. Mild atherosclerotic calcific a cyst without hemodynamically significant stenosis at the bilateral carotid siphons. No significant stenosis or aneurysms. 2. Small old lacunar infarct in the right frontoparietal white matter. No acute intracranial process. 2. Stable mild nonspecific cerebral white matter hypoattenuation consistent with chronic small vessel ischemic disease. Reviewed, dictated and finalized at location [facility]. IMPRESSION: 1. Mild atherosclerotic calcific a cyst without hemodynamically significant viral nosis at the bilateral carotid siphons. No significant stenosis or aneurysms. 2. Small old lacunar infarct in the right frontoparietal white matter. No acute intracranial process. 2. Stable mild nonspecific cerebral white matter hypoattenuation consistent wit h chronic small vessel ischemic disease.
--- NOTE | ~2019-11-30 | XR_ITS ---
EXAMINATION: XR chest 2V DATE: 11/30/2019 19:16 INDICATION: Shortness of breath, hypertension and dizziness TECHNIQUE: PA and lateral views of the chest were obtained. COMPARISON: Chest radiograph dated 11/07/[address] dated 10/08/2018 FINDINGS: Mild lingular atelectasis/scarring along side a small left paracardial fat pad. There is increased conrad bpleural fat at the periphery of the bilateral lower lung zones. No new airspace opacities, pulmonary edema, pleural effusion or pneumothorax. The cardiomediastinal silhouette is normal. Left pectoral i mplantable washer off. There are bridging osteophytes at multiple levels in the spine, consisten t with diffuse idiopathic skeletal hyperostosis (DISH). IMPRESSION: 1. Unchanged mild lingular atelectasis/scarring. No acute cardiopulmonary disease. Reviewed, dictated and finalized at location [facility]. IMPRESSION: 1. Unchanged mild lingular atelectasis/scarring. No acute cardiopulmonary disea se.
[2019-11-30 17:51] VITALS: BP 131/78; PULSE 84; RESP 16; TEMP 36.6; O2SAT 97
--- NOTE | 2019-11-30 17:58 | ECG_ITS ---
Measurements Intervals [place] Rate: 82 P: 27 OR: 151 QRS: 21 QRSD: 154 T: 38 QT: 410 QTc: 481 Interpretive Statements SINUS RHYTHM RIGHT BUNDLE BRANCH BLOCK ABNORMAL ECG Electronically Signed On 11-30-2019 18:43:49 CDT by Mathew Landon D.O.
[2019-11-30 18:08] LABS: Basophils Percent Auto 0.1 % (0.2-1.2); Eosinophils Absolute Auto 0.2 K/mm3 (0-0.3); Eosinophils Percent Auto 2.3 % (0-4.4); Hematocrit 39.5 % (42.0-52.0); Hemoglobin 13.9 g/dL (14.0-18.0); Immature Granulocyte Absolute 0.02 K/mm3 (0.00-0.031); Immature Granulocyte Percent A 0.3 % (0-0.5); Lymphocytes Absolute Auto 1.38 K/mm3 (0.9-3.2); Lymphocytes Percent Auto 19.5 % (18.3-44.2); Mean Corpuscular HGB Conc 35.2 g/dl (32-36); Mean Platelet Volume 11.2 fl (7.4-10.4); Monocytes Absolute Auto 0.8 K/mm3 (0.1-0.6); Monocytes Percent Auto 11.3 % (2.6-8.5); Neutrophils Absolute Auto 4.7 K/mm3 (1.3-6.7); Neutrophils Percent Auto 66.5 % (45.5-73.1); Platelet Count Result 166 k/mm3 (150-375); Red Blood Count 4.49 M/mm3 (4.6-6.20); Red Cell Distribution Width 13.5 % (11.5-14.5); White Blood Count 7.1 K/mm3 (4.5-10.0)
[2019-11-30 18:18] LABS: INR 1.2; Prothrombin Time 14.7 Seconds (11.1-14.7)
[2019-11-30 18:19] LABS: Partial Thromboplastin Time 30.3 SECONDS (22.3-36.8)
[2019-11-30 18:20] LABS: Anion Gap 12 mmol/L (8-16); Blood Urea Nitrogen 16 mg/dL (9-20); Calcium 9.5 mg/dL (8.4-10.2); Carbon Dioxide 22 mmol/L (22-30); Chloride 105 mmol/L (98-107); Estimated CRCL calculation 96 ml/min; Estimated Glomerular Filt Rate > 60; Glucose 151 mg/dL (75-110); Potassium 4.4 mmol/L (3.4-5.0); Sodium 139 mmol/L (137-145)
[2019-11-30 18:31] LABS: Troponin I < 0.012 ng/mL (0.000-0.034)
[2019-11-30 19:43] VITALS: BP 129/83; PULSE 82; RESP 22; O2SAT 95
[2019-11-30 20:00] VITALS: BP 130/79; PULSE 82; RESP 19; O2SAT 93
--- NOTE | 2019-11-30 20:50 | ED.DIZZY ---
HPI - Dizziness General Chief Complaint: Dizziness Stated Complaint: Lightheadness, dizziness Time Seen by Provider: 11/30/19 19:35 History of Present Illness HPI Narrative: Patient is a 59-year-old male with multiple chronic medical issues and frequent ER visits who presents ER with complaints of headache with dizziness and left arm burning. Patient has history of stroke. He is on Xarelto. Reports 2 days ago he was performing pulmonary function testing and was blowing so hard that he nearly blacked out and they told him to breathe again things got much better. Since then he has had persistent headache anytime he goes from sitting to standing and that this also causes his left arm to begin burning. This is improved by just sitting down. Does not seem to have an exertional component. No reproducible symptoms with turning his head. Dizziness is feeling unsteady is not vertiginous. No ringing in the ears or change in hearing. Related Data Home Medications Medication Instructions Recorded Confirmed Breo Ellipta 1 inh INHALATION DAILY 01/24/19 11/07/19 Trulicity 1.5 mg SUBCUT WEEKLY 01/24/19 11/07/19 Xarelto 2.5 mg PO BID 01/24/19 11/07/19 amlodipine 10 mg PO DAILY 01/24/19 11/07/19 bupropion HCl 150 mg PO BID 01/24/19 11/07/19 doxazosin 2 mg PO HS 01/24/19 11/07/19 losartan 100 mg PO HS 01/24/19 11/07/19 metformin 1,000 mg PO BID 01/24/19 11/07/19 ciclopirox 8 % topical solution 1 applic TOPICAL DAILY PRN 04/13/19 11/07/19 omeprazole 40 mg capsule,delayed 40 mg PO DAILY 04/13/19 11/07/19 release potassium chloride 20 mEq 20 meq PO DAILY 04/13/19 11/07/19 tablet,extended release carvedilol [Coreg] 25 mg PO BID 04/28/19 11/07/19 isosorbide mononitrate 30 mg PO HS 04/28/19 11/07/19 Combivent Respimat 2 puff INHALATION PRN PRN 05/16/19 11/07/19 atorvastatin 80 mg PO HS 05/16/19 11/07/19 ipratropium bromide 0.5 mg INHALATION Q6HRT 11/07/19 11/07/19 Allergies Allergy/AdvReac Type Severity Reaction Status Date / Time No Known Allergies Allergy Unknown Verified 11/07/19 15:25 Review of Systems Review of Systems: All systems reviewed & are unremarkable except as noted in HPI and below Constitutional: Constitutional: Denies chills, Denies fever(s) and Denies weakness ENT: Denies nasal congestion and Denies sore throat Cardiovascular: Cardiovascular: Denies chest pain and Denies radiating jaw, neck or arm pain Respiratory: Respiratory: Denies cough and Denies dyspnea Neurologic: Reports dizziness and Reports headache(s) Comments: burning arm pain PMFSH Social History Social History Social History: The patient is and has no children. Rena Dodd is his durable power disability attorney for healthcare with whom he lives as a roommate. He is a full code. He does smoke 3 cigarettes per day currently. No current alcohol use. 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 HEAD: Normocephalic, atraumatic. ENT: Mucous membranes moist. CHEST: Clear to auscultation. No respiratory distress. HEART: Regular rate and rhythm. Normal peripheral pulses. ABDOMEN: Soft, nontender, nondistended. EXTREMITIES: Normal range of motion. No edema. SKIN: Warm, dry, no rash. NEURO: Alert and oriented x3. No focal deficit. PSYCH: Normal mood and affect. Course Course Emergency Course: Unremarkable exam and evaluation. Recommend follow-up w
[2019-11-30 21:00] VITALS: BP 130/83; PULSE 82; RESP 20; O2SAT 96
[2019-11-30 21:34] LABS: Troponin I < 0.012 ng/mL (0.000-0.034)
[2019-11-30 22:21] VITALS: BP 105/67; PULSE 82; RESP 21; O2SAT 97
== END 2019-11-30 22:23 | disposition home or self-care (01) ==
PROVIDERS: Emergency Medicine; Emergency Provider Emergency Medicine; PCP Registered Nurse
DX: R51 Headache (principal); R20.2 Paresthesia of skin; I25.10 Atherosclerotic heart disease of native coronary artery without angina pectoris; I50.9 Heart failure, unspecified; J44.9 Chronic obstructive pulmonary disease, unspecified; E78.5 Hyperlipidemia, unspecified; Z87.442 Personal history of urinary calculi; I25.2 Old myocardial infarction; E11.42 Type 2 diabetes mellitus with diabetic polyneuropathy; G47.33 Obstructive sleep apnea (adult) (pediatric); Z86.73 Personal history of transient ischemic attack (TIA), and cerebral infarction without residual deficits; Z95.5 Presence of coronary angioplasty implant and graft; F17.210 Nicotine dependence, cigarettes, uncomplicated; E11.51 Type 2 diabetes mellitus with diabetic peripheral angiopathy without gangrene; I45.10 Unspecified right bundle-branch block; Z79.84 Long term (current) use of oral hypoglycemic drugs; Z79.01 Long term (current) use of anticoagulants; Z79.82 Long term (current) use of aspirin
CPT/HCPCS: 36415; 70496; 71046; 80048; 84484; 85025; 85610; 85730; 93005; 99284; Q9967

== ENCOUNTER 2019-12-07 10:49 | Outpatient (CLI) | payer MEDICARE, MEDICAID, SELFPAY ==
--- NOTE | ~2019-12-07 | XR_ITS ---
XR abdomen/kub 1V DATE: 12/07/2019 11:06 INDICATION: Left ureteral stone follow-up TECHNIQUE: AP projection, 2 views COMPARISON: 09/14/2019 KUB 09/05/[address] abdomen pelvis FINDINGS: No obvious radiographic evidence of ureteral calculus on either side is noted. Small faintl y calcified or noncalcified calculi may not be detected radiographically. Consider noncontrast CT abd omen pelvis examination for more definitive evaluation. Large faintly calcified left renal pelvis is again noted as well as a couple of additional small left renal probable calcified calculi. No evidence of bowel obstruction. The psoas shadows are intact. Status post cholecystectomy. Nonspecific bowel gas pattern. IMPRESSION: Left nephrolithiasis Reviewed, dictated and finalized at [facility]. Reviewed, dictated and finalized at location [facility]. IMPRESSION: Left nephrolithiasis
== END 2019-12-07 10:50 | disposition home or self-care (01) ==
PROVIDERS: PCP Registered Nurse; Visit Provider Urology
DX: N20.0 Calculus of kidney (principal)
CPT/HCPCS: 74018

== ENCOUNTER 2019-12-19 19:43 | Emergency (ER) | payer MEDICARE, MEDICAID, SELFPAY ==
--- NOTE | ~2019-12-19 | CT_ITS ---
EXAMINATION: CT abdomen pelvis wo con EXAM DATE: 12/19/2019 20:30 INDICATION: left flank pain, h/o kidney stones. TECHNIQUE: Spiral CT of the abdomen and pelvis was performed without contrast. Axial, coronal and sag ittal images were reviewed. The dose-length product (DLP) for this examination was 1461.01 mGy-cm. The exposure was tailored according to patient size (auto mA exposure control), and iterative reconst ruction (ASIR) was used as additional dose reduction technique. Comparison is made to prior examinati on from 09/05/2019. FINDINGS: There is a large stone in the left renal pelvis measuring 1.7 cm. Additional 5 mm inferior calyceal stone. No hydronephrosis or ureteral stones. The prostate is unremarkable. Small right ingu inal fat-containing hernia. The bladder is unremarkable. Probable bilateral adrenal gland myelolipom as, larger on the left at 3.5 cm. The liver, spleen, and pancreas are unremarkable. There are cholec ystectomy clips. There is no retroperitoneal or pelvic lymphadenopathy. The appendix is normal. The stomach and small bowel are unremarkable. There is expected amount of c olonic stool. No free intraperitoneal gas. The heart is normal in size. There are no pericardial or pleural effusions. Linear bibasilar atelectasis. There are no osteoblastic or osteolytic lesion s identified. IMPRESSION: 1. Left renal pelvic 1.7 cm stone. No hydronephrosis. 2. Probable adrenal myelolipomas. 3. Small right inguinal hernia Reviewed, dictated and finalized at location [facility].
[2019-12-19 19:48] VITALS: BP 170/85; PULSE 92; RESP 15; TEMP 36.8; O2SAT 98
[2019-12-19 19:52] VITALS: PULSE 92; RESP 20; O2SAT 98
--- NOTE | 2019-12-19 19:53 | ED.ABDPAIN ---
HPI - Abdominal Pain General Chief Complaint: Abdominal Pain Stated Complaint: Kidney stone Time Seen by Provider: 12/19/19 19:46 Source: patient Mode of arrival: ambulatory Limitations: no limitations History of Present Illness HPI narrative: Patient is a 59-year-old male complaining of left flank pain, 9 out of 10, sharp, nonradiating accompanied by nausea and dysuria started approximately 30 minutes prior to arrival. Patient states he has history of kidney stones and this is usually how it presents. Related Data Home Medications Medication Instructions Recorded Confirmed Breo Ellipta 1 inh INHALATION DAILY 01/24/19 11/07/19 Trulicity 1.5 mg SUBCUT WEEKLY 01/24/19 11/07/19 Xarelto 2.5 mg PO BID 01/24/19 11/07/19 amlodipine 10 mg PO DAILY 01/24/19 11/07/19 bupropion HCl 150 mg PO BID 01/24/19 11/07/19 doxazosin 2 mg PO HS 01/24/19 11/07/19 losartan 100 mg PO HS 01/24/19 11/07/19 metformin 1,000 mg PO BID 01/24/19 11/07/19 ciclopirox 8 % topical solution 1 applic TOPICAL DAILY PRN 04/13/19 11/07/19 omeprazole 40 mg capsule,delayed 40 mg PO DAILY 04/13/19 11/07/19 release potassium chloride 20 mEq 20 meq PO DAILY 04/13/19 11/07/19 tablet,extended release carvedilol [Coreg] 25 mg PO BID 04/28/19 11/07/19 isosorbide mononitrate 30 mg PO HS 04/28/19 11/07/19 Combivent Respimat 2 puff INHALATION PRN PRN 05/16/19 11/07/19 atorvastatin 80 mg PO HS 05/16/19 11/07/19 ipratropium bromide 0.5 mg INHALATION Q6HRT 11/07/19 11/07/19 Allergies Allergy/AdvReac Type Severity Reaction Status Date / Time No Known Allergies Allergy Unknown Verified 12/19/19 19:50 Review of Systems Review of Systems: All systems reviewed & are unremarkable except as noted in HPI and below Constitutional: Constitutional: Denies body ache(s), Denies chills, Denies excessive sweating, Denies fatigue, Denies fever(s), Denies headache(s), Denies lethargy, Denies malaise, Denies weakness and Denies weight loss Eyes: Eyes: Denies blurry vision, Denies change in vision and Denies loss of vision ENT: Denies dizziness, Denies ear discharge, Denies headache(s), Denies lip swelling, Denies epistaxis, Denies nasal congestion, Denies neck pain, Denies throat swelling and Denies tongue swelling Cardiovascular: Cardiovascular: Denies chest pain, Denies chest pain at rest, Denies chest pain with activity, Denies diaphoresis, Denies rapid heart rate, Denies edema, Denies irregular heart rhythm, Denies lightheadedness, Denies palpitations, Denies dyspnea and Denies dyspnea on exertion Respiratory: Respiratory: Denies chest congestion, Denies cough, Denies hemoptysis, Denies dyspnea and Denies dyspnea on exertion Gastrointestinal: Gastrointestinal: Denies abdominal pain, Denies melena, Denies hematochezia, Denies diarrhea, Denies nausea, Denies vomiting and Denies hematemesis Musculoskeletal: Musculoskeletal: Denies abnormal gait, Denies deformity, Denies joint swelling, Denies limited range of motion, Denies neck pain and Denies numbness Neurologic: Denies Abnormal speech present, Denies abnormal gait, Denies confusion, Denies dizziness, Denies headache(s), Denies focal weakness, Denies loss of vision, Denies numbness, Denies Other visual disturbances, Denies Sensory deficit (Neuro) and Denies weakness Psychiatric: Psychiatric: Denies confusion, Denies depression, Denies auditory hallucinations, Denies homicidal ideation and Denies suicidal ideation Endocrine: Endocrine: Denies cold intolerance, Denies excessive sweating, Denies fatigue, Denies heat intolerance and Denies palpitations Hematologic/Lymphatic: Hematologic/Lymphatic: Denies easy bleeding and Denies easy bruising Allergic/Immunologic: Allergic/Immunologic: Denies lip swelling, Denies throat swelling and Denies tongue swelling PMFSH Past Medical History Medical History (Updated 12/19/19 @ 21:19 by Clive Jewell MD) Anxiety Arthritis CAD (coronary artery disease) CHF (congestive heart failure) Constipa
[2019-12-19] MEDS: PROMETHAZINE HCL 25 MG/ML AMPUL 12.5 MG IV PUSH (20:01)
[2019-12-19] MEDS: HYDROmorphone HCL INJ (*CRX) 1 MG/ML SYR 0.5 MG IV PUSH (20:05)
[2019-12-19 20:11] LABS: Basophils Percent Auto 0.3 % (0.2-1.2); Eosinophils Absolute Auto 0.2 K/mm3 (0-0.3); Eosinophils Percent Auto 1.9 % (0-4.4); Hematocrit 40.4 % (42.0-52.0); Immature Granulocyte Absolute 0.04 K/mm3 (0.00-0.031); Immature Granulocyte Percent A 0.5 % (0-0.5); Lymphocytes Absolute Auto 1.38 K/mm3 (0.9-3.2); Lymphocytes Percent Auto 17.7 % (18.3-44.2); Mean Corpuscular HGB Conc 34.7 g/dl (32-36); Mean Corpuscular Hemoglobin 31.5 pg (26-34); Mean Platelet Volume 12.1 fl (7.4-10.4); Monocytes Absolute Auto 0.6 K/mm3 (0.1-0.6); Monocytes Percent Auto 7.9 % (2.6-8.5); Neutrophils Absolute Auto 5.6 K/mm3 (1.3-6.7); Neutrophils Percent Auto 71.7 % (45.5-73.1); Platelet Count Result 166 k/mm3 (150-375); Red Blood Count 4.44 M/mm3 (4.6-6.20); Red Cell Distribution Width 13.9 % (11.5-14.5); White Blood Count 7.8 K/mm3 (4.5-10.0)
[2019-12-19 20:23] LABS: Anion Gap 11 mmol/L (8-16); Blood Urea Nitrogen 18 mg/dL (9-20); Calcium 9.6 mg/dL (8.4-10.2); Carbon Dioxide 25 mmol/L (22-30); Chloride 101 mmol/L (98-107); Estimated CRCL calculation 83 ml/min; Estimated Glomerular Filt Rate 56; Glucose 252 mg/dL (75-110); Potassium 4.2 mmol/L (3.4-5.0); Sodium 137 mmol/L (137-145)
[2019-12-19 20:35] LABS: Add Urine Microscopic? YES; Appearance Urine Clear (Clear); Bilirubin Urine Negative (Negative); Blood Urine 3+ (Negative); Color Urine Yellow (Yellow); Glucose Urine UA 3+ mg/dL (Negative); Ketones Urine Negative (Negative); Leukocyte Esterase Ur Negative LEU/UL (Negative); Mucus Urine Rare /lpf; Nitrate Urine Negative (Negative); Protein Urine 1+ mg/dL (Negative); RBC Urine >75 /hpf (0-2); Specific Grav Ur 1.017 (1.001-1.035); Squamous Epithelial Cell Urine Rare /hpf (Few); Urobilinogen Urine Negative mg/dL (<2.0); WBC Urine 0-3 /hpf
[2019-12-19 21:32] VITALS: BP 131/72; PULSE 82; RESP 17; O2SAT 97
== END 2019-12-19 21:40 | disposition home or self-care (01) ==
PROVIDERS: Emergency Provider Emergency Medicine; PCP Registered Nurse
DX: N20.0 Calculus of kidney (principal); E11.65 Type 2 diabetes mellitus with hyperglycemia; Z87.442 Personal history of urinary calculi; M19.90 Unspecified osteoarthritis, unspecified site; F41.9 Anxiety disorder, unspecified; I25.10 Atherosclerotic heart disease of native coronary artery without angina pectoris; I11.0 Hypertensive heart disease with heart failure; I50.9 Heart failure, unspecified; I69.954 Hemiplegia and hemiparesis following unspecified cerebrovascular disease affecting left non-dominant side; E11.42 Type 2 diabetes mellitus with diabetic polyneuropathy; K21.9 Gastro-esophageal reflux disease without esophagitis; E78.5 Hyperlipidemia, unspecified; I25.2 Old myocardial infarction; E11.51 Type 2 diabetes mellitus with diabetic peripheral angiopathy without gangrene; Z79.84 Long term (current) use of oral hypoglycemic drugs; Z87.440 Personal history of urinary (tract) infections; Z95.5 Presence of coronary angioplasty implant and graft; Z87.891 Personal history of nicotine dependence; Z79.01 Long term (current) use of anticoagulants
CPT/HCPCS: 36415; 74176; 80048; 81001; 85025; 96374; 96375; 99284; J1170; J2550

== ENCOUNTER 2019-12-25 20:38 | Inpatient (IN) | payer MEDICARE, MEDICAID, SELFPAY ==
--- NOTE | ~2019-12-25 | CT_ITS ---
EXAMINATION: CT abdomen pelvis w con DATE: 12/26/2019 13:35 INDICATION: Left flank pain. TECHNIQUE: Computed tomography (CT) of the abdomen and pelvis was performed with 100 mL Omnipaque 350 intravenous contrast. Automated exposure control and iterative reconstruction technique were employe d. The dose-length product was 1685.72 mGy-cm. COMPARISON: CT abdomen and pelvis 12/19/2019, 10/26/2017 FINDINGS: The visualized portions of the lung bases demonstrate mild atelectasis. There is a small le ft pleural effusion. The heart size is normal. There are coronary artery calcifications. No pericardi al effusion. There is diffuse hepatic steatosis. There are changes of cholecystectomy. There is mild splenomegaly measuring 13.5 cm, likely secondary to obesity. The pancreas is normal. There are masses containing fat in the adrenal glands measuring up to 4.0 cm on the left, consistent with myelolipoma s. There is a 14 mm cyst in right kidney. The prostate is moderately enlarged. There are 6 mm and 4 m m stones in left kidney lower pole. There is mild left hydronephrosis. There is a 15 mm stone at left ureteropelvic junction. There are no dilated loops of bowel. The appendix is normal. There are no pa thologically enlarged lymph nodes. There is no free intraperitoneal fluid. There are chronic scleroti c lesions in proximal left femur, likely benign. IMPRESSION: 1. 15 mm stone at left ureteropelvic junction with mild left hydronephrosis. 2. Nonobstructing left kidney stones. 3. Small left pleural effusion. 4. Diffuse hepatic steatosis. Reviewed, dictated and finalized at location A.
--- NOTE | ~2019-12-25 | XR_ITS ---
EXAMINATION: XR retrograde pyelo w/stent LT DATE: 12/26/2019 18:05 CDT INDICATION: Left retrograde pyelogram. TECHNIQUE: Multiple fluoroscopic images from a left retrograde pyelogram are submitted for review. 26 seconds of fluoroscopy. FINDINGS: There is contrast in the bladder and left ureter. Ureter appears to be mildly dilated. Kiki l collecting system is mildly dilated. Left internal ureteral stent not definitely visualized. Correl ate clinically. IMPRESSION: 1. Mild left hydroureteronephrosis.. Correlate with real time procedural findings for details. Reviewed, dictated and finalized at location A. IMPRESSION: 1. Mild left hydroureteronephrosis.. Correlate with real time procedural findi ngs for details.
--- NOTE | ~2019-12-25 | XR_ITS ---
EXAMINATION: XR chest 1V portable EXAM DATE: 12/25/2019 21:09 INDICATION: Left-sided chest pain, shortness of breath. Stent. TECHNIQUE: Portable AP frontal chest x-ray was obtained. Comparison is made to prior examination from 11/30/2019. FINDINGS: Cardiac monitoring device. Some limitations due to underpenetration. No confluent consolida tion, pneumothorax or pleural effusion suspected. There are mild bony degenerative changes. IMPRESSION: No acute cardiopulmonary findings. Reviewed, dictated and finalized at location A.
[2019-12-25 20:42] VITALS: BP 159/86; PULSE 90; RESP 21; TEMP 36.5; O2SAT 96
--- NOTE | 2019-12-25 20:47 | ECG_ITS ---
Measurements Intervals [place] Rate: 89 P: 31 RI: 152 QRS: 6 QRSD: 161 T: 29 QT: 419 QTc: 512 Interpretive Statements SINUS RHYTHM RIGHT BUNDLE BRANCH BLOCK ABNORMAL ECG Electronically Signed On 12-26-2019 7:01:28 CDT by Mathew Landon D.O.
[2019-12-25] MEDS: ASPIRIN 81 MG CHEWABLE TABLET 324 MG PO (20:53)
[2019-12-25 20:56] LABS: Basophils Percent Auto 0.1 % (0.2-1.2); Eosinophils Absolute Auto 0.1 K/mm3 (0-0.3); Eosinophils Percent Auto 1.7 % (0-4.4); Hemoglobin 13.1 g/dL (14.0-18.0); Immature Granulocyte Absolute 0.03 K/mm3 (0.00-0.031); Immature Granulocyte Percent A 0.4 % (0-0.5); Lymphocytes Absolute Auto 1.32 K/mm3 (0.9-3.2); Lymphocytes Percent Auto 16.4 % (18.3-44.2); Mean Corpuscular HGB Conc 34.5 g/dl (32-36); Mean Corpuscular Hemoglobin 31.2 pg (26-34); Mean Corpuscular Volume 90.5 fl (80-100); Mean Platelet Volume 11.6 fl (7.4-10.4); Monocytes Absolute Auto 0.7 K/mm3 (0.1-0.6); Monocytes Percent Auto 8.2 % (2.6-8.5); Neutrophils Absolute Auto 5.9 K/mm3 (1.3-6.7); Neutrophils Percent Auto 73.2 % (45.5-73.1); Platelet Count Result 141 k/mm3 (150-375); Red Cell Distribution Width 13.7 % (11.5-14.5); White Blood Count 8.1 K/mm3 (4.5-10.0)
--- NOTE | 2019-12-25 21:05 | ED.CHESTPAIN ---
HPI - Chest Pain General Chief Complaint: Chest Pain Stated Complaint: Chest Pain Time Seen by Provider: 12/25/19 20:46 Source: RN notes reviewed History of Present Illness HPI narrative: Patient presents emergency department from home for chest pain. Patient states chest pain began approximately 7 PM. Pain is located in her left chest and describes a pressure with radiation to the left shoulder. No associated shortness of breath. Patient states he took a nitro at home with resolution of his symptoms but the chest pain returned. He denies any fevers or chills abdominal pain nausea vomiting or any other symptoms. Patient does have a history of previous cardiac stent and is followed by Dr. Robles Related Data Home Medications Medication Instructions Recorded Confirmed Breo Ellipta 1 inh INHALATION DAILY 01/24/19 12/23/19 Trulicity 1.5 mg SUBCUT WEEKLY 01/24/19 12/23/19 Xarelto 2.5 mg PO BID 01/24/19 12/23/19 amlodipine 10 mg PO DAILY 01/24/19 12/23/19 bupropion HCl 150 mg PO BID 01/24/19 12/23/19 doxazosin 2 mg PO HS 01/24/19 12/23/19 losartan 100 mg PO HS 01/24/19 12/23/19 metformin 1,000 mg PO BID 01/24/19 12/23/19 ciclopirox 8 % topical solution 1 applic TOPICAL DAILY PRN 04/13/19 12/23/19 omeprazole 40 mg capsule,delayed 40 mg PO DAILY 04/13/19 12/23/19 release potassium chloride 20 mEq 20 meq PO DAILY 04/13/19 12/23/19 tablet,extended release carvedilol [Coreg] 25 mg PO BID 04/28/19 12/23/19 isosorbide mononitrate 30 mg PO HS 04/28/19 12/23/19 Combivent Respimat 2 puff INHALATION PRN PRN 05/16/19 12/23/19 atorvastatin 80 mg PO HS 05/16/19 12/23/19 ipratropium bromide 0.5 mg INHALATION Q6HRT 11/07/19 12/23/19 Allergies Allergy/AdvReac Type Severity Reaction Status Date / Time No Known Allergies Allergy Unknown Verified 12/23/19 10:29 Review of Systems Review of Systems: Narrative: Gen.: Denies fevers or chills Eyes: Denies eye pain or visual change ENT: Denies congestion Respiratory: Reports shortness of breath CV: See HPI GI: Denies abdominal pain nausea, emesis or diarrhea Musculoskeletal: Denies back pain or muscle pain Neuro: Denies numbness, tingling, weakness or focal weakness Skin: Denies rash Except as documented, all other systems reviewed and negative [facility] Past Medical History Medical History Anxiety Arthritis BMI greater than 40 CAD (coronary artery disease) CHF (congestive heart failure) Constipation COPD (chronic obstructive pulmonary disease) CVA (cerebral vascular accident) With mild left-sided weakness. Depression Diabetes mellitus Type 2 diabetes. Diarrhea Dizziness Eczema Fracture of fifth toe, right, closed GERD (gastroesophageal reflux disease) GI bleed Headache Hearing loss History of blood clots History of gastric ulcer HLD (hyperlipidemia) Hoarseness HTN (hypertension) Kidney stones Left knee pain Medial meniscus tear Myocardial infarction Nausea and vomiting TAMIR on CPAP Peripheral neuropathy Pneumonia Psoriasis PVD (peripheral vascular disease) Rectal polyp Seasonal allergies Shortness of breath Sleep apnea Sleep disorder Stomach pain TIA (transient ischemic attack) Type 2 diabetes mellitus UTI (urinary tract infection) Vertigo Vision abnormalities Weight gain Surgical History Surgical History H/O heart artery stent 2 H/O lithotripsy History of cardiac catheterization 2 stents History of loop recorder History of rectal polypectomy Hx of cholecystectomy Hx of tonsillectomy Family History Family History Mother Diabetes mellitus Kidney stones Father Acute myocardial infarction Kidney stones Heart disease Sibling Heart disease Other Arthritis Hypertension Social History Social History Social History: [employer]
[2019-12-25 21:08] LABS: INR 1.1; Prothrombin Time 13.8 Seconds (11.1-14.7)
[2019-12-25 21:09] LABS: Partial Thromboplastin Time 31.3 SECONDS (22.3-36.8)
[2019-12-25] MEDS: NITROGLYCERIN OINTMENT 1 INCH DOSE TRANSDERM (21:11)
[2019-12-25 21:19] VITALS: BP 149/90; PULSE 87; RESP 18; O2SAT 96
[2019-12-25 21:21] LABS: Anion Gap 12 mmol/L (8-16); Blood Urea Nitrogen 18 mg/dL (9-20); Calcium 9.5 mg/dL (8.4-10.2); Carbon Dioxide 23 mmol/L (22-30); Chloride 104 mmol/L (98-107); Estimated CRCL calculation 117 ml/min; Estimated Glomerular Filt Rate > 60; Glucose 194 mg/dL (75-110); Potassium 4.1 mmol/L (3.4-5.0); Sodium 139 mmol/L (137-145)
[2019-12-25 21:34] LABS: NT Pro B Type Natriuretic Pept 29 PG/ML (5-100); Troponin I < 0.012 ng/mL (0.000-0.034)
[2019-12-25 22:08] VITALS: BP 146/83; PULSE 87; RESP 12; O2SAT 96
--- NOTE | 2019-12-25 22:41 | PM.IMHP ---
H&P: HPI History of Present Illness Date/Time: 12/25/19 22:41 Chief complaint: Chest Pain Narrative: This is a 59 year old morbidly obese Diabetic male with known history of CAD+ s/p 2 stents, HTN, Hyperlipidemia, CHF among other comorbidities who presented to the [facility] with a complaint of midsternal chest pain that started while he was waiting for his dinner to cook and while he was seated. his chest pain radiated towards the left side of his neck and down his left arm. He took a nitroglycerin which initially resolved his chest discomfort but then it came back again shortly afterwards. Associated symptoms included mild shortness of breath although he denies any nausea, vomiting, or diaphoresis. The patient has not had a stress test or cardiac angiogram for some years. On further questioning he denies any fevers, chills, sore throat, abdominal pain, dysuria, hematuria, diarrhea, or rectal bleeding. Evaluation in the emergency room has been unremarkable and the patient's troponin has been negative. EKG demonstrates a sinus rhythm with 89 beats per minute and a right bundle branch block pattern. No significant ST segment changes. We been asked to admit the patient to the hospital for chest pain rule out. He has no other complaints at this time. Review of Systems Review of Systems: All systems reviewed & are unremarkable except as noted in HPI and below PMFSH Past Medical History Medical History Anxiety Arthritis BMI greater than 40 CAD (coronary artery disease) CHF (congestive heart failure) Constipation COPD (chronic obstructive pulmonary disease) CVA (cerebral vascular accident) With mild left-sided weakness. Depression Diabetes mellitus Type 2 diabetes. Diarrhea Dizziness Eczema Fracture of fifth toe, right, closed GERD (gastroesophageal reflux disease) GI bleed Headache Hearing loss History of blood clots History of gastric ulcer HLD (hyperlipidemia) Hoarseness HTN (hypertension) Kidney stones Left knee pain Medial meniscus tear Myocardial infarction Nausea and vomiting TAMIR on CPAP Peripheral neuropathy Pneumonia Psoriasis PVD (peripheral vascular disease) Rectal polyp Seasonal allergies Shortness of breath Sleep apnea Sleep disorder Stomach pain TIA (transient ischemic attack) Type 2 diabetes mellitus UTI (urinary tract infection) Vertigo Vision abnormalities Weight gain Surgical History Surgical History H/O heart artery stent 2 H/O lithotripsy History of cardiac catheterization 2 stents History of loop recorder History of rectal polypectomy Hx of cholecystectomy Hx of tonsillectomy Family History Family History Mother Diabetes mellitus Kidney stones Father Acute myocardial infarction Kidney stones Heart disease Sibling Heart disease Other Arthritis Hypertension Social History Social History Social History: The patient is and has no children. Rena Dodd is his durable power ip technology transactions attorney for healthcare with whom he lives as a roommate. He is a full code. He does smoke 3 cigarettes per day currently. No current alcohol use. 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
[2019-12-25 23:00] VITALS: BP 130/68; PULSE 82; RESP 17; O2SAT 96
[2019-12-25 23:08] VITALS: BP 126/70; PULSE 83; RESP 18; TEMP 36.6; O2SAT 96; BMI 41.1
--- NOTE | 2019-12-25 23:10 | ADMGEN ---
This patient, Vini Zambrano, was admitted to IMU Room 213-01 at 2308. Patient/family oriented to hospital policies and general routines including ID bracelet, bed and alarms, visiting hours, pain management, procedures, bathroom and other care routines, personal items, smoking policy, room service/diet, and visiting hours. Information on how to activate the Rapid Response Team has been discussed. Patient/Family are encouraged to report perceived risks to care and to ask questions if they do not understand what they are told or what they should do.
[2019-12-25 23:35] VITALS: PULSE 82; RESP 17; O2SAT 96
[2019-12-25 23:54] LABS: Glucose Point of Care 160 (65-105)
[2019-12-26] VITALS (37 sets, daily range): BP systolic 97–164; BP diastolic 62–87; PULSE 18–85; RESP 15–96; TEMP 35.7–36.4; O2SAT 75–98
[2019-12-26 00:11] LABS: Lipase 155 U/L (23-300)
[2019-12-26 00:24] LABS: Troponin I < 0.012 ng/mL (0.000-0.034)
[2019-12-26 03:03] LABS: Basophils Percent Auto 0.1 % (0.2-1.2); Eosinophils Absolute Auto 0.2 K/mm3 (0-0.3); Eosinophils Percent Auto 2.4 % (0-4.4); Hematocrit 36.4 % (42.0-52.0); Hemoglobin 12.5 g/dL (14.0-18.0); Immature Granulocyte Absolute 0.02 K/mm3 (0.00-0.031); Immature Granulocyte Percent A 0.3 % (0-0.5); Immature Platelet Fraction Pct 7.5 % (0.9-11.2); Lymphocytes Percent Auto 20.8 % (18.3-44.2); Mean Corpuscular HGB Conc 34.3 g/dl (32-36); Mean Corpuscular Hemoglobin 31.3 pg (26-34); Mean Platelet Volume 11.2 fl (7.4-10.4); Monocytes Absolute Auto 0.7 K/mm3 (0.1-0.6); Neutrophils Absolute Auto 4.5 K/mm3 (1.3-6.7); Neutrophils Percent Auto 66.4 % (45.5-73.1); Platelet Count Result 144 k/mm3 (150-375); Red Cell Distribution Width 13.7 % (11.5-14.5); White Blood Count 6.7 K/mm3 (4.5-10.0)
[2019-12-26 03:17] LABS: Anion Gap 11 mmol/L (8-16); Blood Urea Nitrogen 18 mg/dL (9-20); Calcium 9.3 mg/dL (8.4-10.2); Carbon Dioxide 26 mmol/L (22-30); Chloride 102 mmol/L (98-107); Estimated CRCL calculation 91 ml/min; Estimated Glomerular Filt Rate > 60; Glucose 170 mg/dL (75-110); Potassium 3.9 mmol/L (3.4-5.0); Sodium 139 mmol/L (137-145)
[2019-12-26 03:29] LABS: Troponin I < 0.012 ng/mL (0.000-0.034)
[2019-12-26 06:10] LABS: Glucose Point of Care 205 (65-105)
[2019-12-26] MEDS: ALBUTEROL SULFATE NEB 2.5 MG/0.5 ML INH INHALATION ×3 (09:32→20:24)
[2019-12-26] MEDS: FUROSEMIDE 40 MG TABLET PO (10:09)
[2019-12-26] MEDS: amLODIPine BESYLATE 5 MG TABLET 10 MG PO (10:09)
[2019-12-26] MEDS: RIVAROXABAN 2.5 MG TABLET PO (10:09)
[2019-12-26] MEDS: metFORMIN HCL 500 MG TABLET 1000 MG PO (10:09)
[2019-12-26] MEDS: carvediloL 25 MG TABLET PO ×2 (10:09→20:53)
[2019-12-26] MEDS: POTASSIUM CHLORIDE 20 MEQ TABLET.ER PO (10:10)
[2019-12-26] MEDS: ASPIRIN 81 MG ENTERIC TABLET PO (10:10)
[2019-12-26] MEDS: PANTOPRAZOLE 40 MG TABLET PO (10:10)
[2019-12-26] MEDS: ONDANSETRON INJ 4 MG/2 ML VIAL IV PUSH ×2 (11:38→20:50)
[2019-12-26] MEDS: MORPHINE SULFATE (*CRX) 2 MG/ML INJ IV PUSH (11:39)
--- NOTE | 2019-12-26 12:35 | PM.CNCAR ---
Assessment and Plan Additional Plan This is a 59-year-old man with coronary disease who underwent interventional revascularization in 2014 in 2015 as detailed above. Since then he has been hospitalized quite a few times with recurrent symptoms of chest pain but has never had new objectively identified coronary lesion. This appears to be a get another 1 of those episodes with no ECG changes of ischemia and negative biomarkers. Unfortunately while he is here this morning he is now having significant left flank pain his urologist who is managing his nephrolithiasis has been consulted and will be seeing him shortly. At this time I am not going to recommend initiating an ischemia workup since the symptoms are atypical and there is no objective evidence of an acute coronary syndrome. Todd Kwan MD [facility] History of Present Illness History of Present Illness Consult date/time: 12/26/19 12:35 Consult reason: chest pain Reason For Visit: Chest Pain Narrative: This is a 59-year-old man known to Dr. Willoughby of our practice for a number of years with coronary artery disease at the being seen today at the request of the hospitalist because of an episode of chest pain which occurred yesterday evening. The patient states that recently he has not had any obvious cardiac complaints or symptoms of angina but he was on noted the onset of some chest pain yesterday while he was preparing dinner at his home. He was simply standing in his kitchen and not with the exerting himself to any degree. He does not exercise regularly and he is morbidly obese but he does perform his activities of daily living usually and has not noticed that physical exertion causes him to have any symptoms of chest pain. The episode of pain began as a central precordial pain which then radiated up into the left side of the neck and into the left arm. He took a nitroglycerin tablet at home and obtained relief a short time later the symptoms recurred and so he decided to come to the emergency room for evaluation. He states that in the emergency room he was placed on some topical nitrates which resolved the symptoms he was admitted to the IMU for further evaluation and observation. The patient's electrocardiogram shows sinus rhythm with a right bundle branch block and compared to old tracings in the chart and shows no interval changes. His biomarkers are normal x3 sets showing no evidence of an acute coronary syndrome. He does not have any further chest pain but unfortunately this morning he started to have some left flank pain that is typical and obvious for his history of symptomatic nephrolithiasis. He says he has had 15 or 16 episodes of a renal colic related to left kidney stones and he has a fairly large stone that is being managed by Dr. Blanton. He states that he had a lithotripsy procedure something like 2 or 3 months ago. Following that he had to have some ureteral stents placed because he had some fragments lodged in the left ureter. His only complaint now is significant flank pain which he states is quite severe at least 8/9 on intensity scale. His history of coronary artery disease dates back to 2013 when he presented to the hospital with symptomatic angina and had a high-grade stenosis in his circumflex treated with a drug-eluting stent. In 2014 he had a significant LAD lesion treated also with a drug-eluting stent. Since then he has not had any documented or objective ischemic problems. He has had recent coronary evaluations including a follow-up angiogram that was done in 2018 at [facility] with favorable results. He had some chest pain at that time and was admitted at that hospital. He had a nuclear stress test done in our office last year supervised by Dr. mccartney which he was told was favorable. His other comorbidities include morbid obesity obstructive sleep apnea and hypertension. Review of Systems Constitutional: Constitutional: Reports no additional constitu
[2019-12-26] MEDS: HYDROmorphone HCL INJ (*CRX) 1 MG/ML SYR IV PUSH ×2 (13:14→17:18)
[2019-12-26 14:48] LABS: Glucose Point of Care 175 (65-105)
[2019-12-26 15:52] LABS: Glucose Point of Care 140 (65-105)
--- NOTE | 2019-12-26 15:58 | WPDURCON ---
Assessment and Plan Assessment and plan (1) Left renal stone: Code(s): N20.0 - Calculus of kidney Status: Acute Assessment and Plan: Keep NPO. Obtain consent: Cystoscopy, left ureteroscopy with stent placement, left retrograde pyelogram. Plan to go to the OR for left stent placement. Patient will need to do PCNL as a second procedure at [facility] after meeting with Dr. Hines in the office as an outpatient to remove the stone. The stent should improve the patient's pain level. Obain a UA and reflex to culture if suspicious for UTI. (2) Hydronephrosis: Code(s): N13.30 - Unspecified hydronephrosis Status: Acute Urology Consult Note HPI Date Seen: 12/26/19 Requesting Physician: Jaron Reyes MD Primary Care Provider: Sandi Alfaro, [employer] Consult Narrative Narrative: Vini Zambrano is a 59 year old male who presented to the ER with chest pain yesterday. He is a patient of Dr. Blanton and we were asked to see him d/t a 15mm left UPJ stone found on CT today with hydronephrosis present. This stone is known to Dr. Blanton and the two of them had actually had an office visit on 12/12/2019 to discuss the treatment for this as he has had two Lithotripsies on this left stone, one in 05/2019 and one in 07/2019 and it reduced the size slightly of it but it didn't break up the stone enough for it to pass. He wasn't having any pain in the left flank or LLQ at that time so they decided to follow up in six months. He would likely end up needing a PCNL to remove the stone by Dr. Hines. The patient also c/o left flank pain in addition to his recent chest pain. He denies fever, hematuria, dysuria, urgency, hesitancy or straining. He is having frequency and chills. He is unable to have pain control with IV pain medications. His WBC is 6.7, Creatinine is 1.10l. UA hasn't been performed at this time. He is afebrile as well. Review of Systems Cardiovascular: Cardiovascular: Denies chest pain Respiratory: Respiratory: Reports no additional respiratory complaints Gastrointestinal: Gastrointestinal: Denies abdominal pain, Denies nausea and Denies vomiting Genitourinary: Genitourinary: Denies hematuria, Denies dysuria, Reports flank pain, Reports urinary frequency and Denies urinary hesitancy [facility] Past Medical History Medical History Anxiety Arthritis BMI greater than 40 CAD (coronary artery disease) CHF (congestive heart failure) Constipation COPD (chronic obstructive pulmonary disease) CVA (cerebral vascular accident) With mild left-sided weakness. Depression Diabetes mellitus Type 2 diabetes. Diarrhea Dizziness Eczema Fracture of fifth toe, right, closed GERD (gastroesophageal reflux disease) GI bleed Headache Hearing loss History of blood clots History of gastric ulcer HLD (hyperlipidemia) Hoarseness HTN (hypertension) Kidney stones Left knee pain Medial meniscus tear Myocardial infarction Nausea and vomiting TAMIR on CPAP Peripheral neuropathy Pneumonia Psoriasis PVD (peripheral vascular disease) Rectal polyp Seasonal allergies Shortness of breath Sleep apnea Sleep disorder Stomach pain TIA (transient ischemic attack) Type 2 diabetes mellitus UTI (urinary tract infection) Vertigo Vision abnormalities Weight gain Surgical History Surgical History H/O heart artery stent 2 H/O lithotripsy History of cardiac catheterization 2 stents History of loop recorder History of rectal polypectomy Hx of cholecystectomy Hx of tonsillectomy Family History Family History Mother Diabetes mellitus Kidney stones Father Acute myocardial infarction Kidney stones Heart disease Sibling Heart disease Other Arthritis Hypertension Social History Social History (Reviewed 12/26/19 @ 16:09 by Kvng
--- NOTE | 2019-12-26 16:15 | WPDANESEPPF ---
Anes - Initial Pre Proc Eval Procedure: Operation Date: 12/26/19 16:00 Proposed Procedures p Cystoscopy, Left Ureteroscopy, Left Retrograde Pyelogram, Left Stent Placement - Russel Werner MD <Conrad Irby MD - Last Filed: 12/28/19 06:47> Date/Time: 12/26/19 16:15 <Conrad Irby MD - Last Filed: 12/28/19 06:47> Surgeon: Jaron Reyes MD <Conrad Irby MD - Last Filed: 12/28/19 06:47> Pre Op Diagnosis: Chest Pain <Conrad Irby MD - Last Filed: 12/28/19 06:47> Patient Data Age: 59 Gender: M Height: 1.83 m Weight: 152.9 kg <Conrad Irby MD - Last Filed: 12/28/19 06:47> Last Vital Signs Temp 36.2 C L 12/26/19 12:00 Pulse 84 12/26/19 16:00 Resp 20 12/26/19 14:52 BP 147/80 H 12/26/19 12:00 Pulse Ox 98 12/26/19 12:00 <Conrad Irby MD - Last Filed: 12/28/19 06:47> Allergies Allergy/AdvReac Type Severity Reaction Status Date / Time No Known Allergies Allergy Unknown Verified 12/23/19 10:29 <Conrad Irby MD - Last Filed: 12/28/19 06:47> Home Medications Medication Instructions Recorded Confirmed Type Trulicity 1.5 mg SUBCUT WEEKLY 01/24/19 12/26/19 History Xarelto 2.5 mg PO BID 01/24/19 12/26/19 History amlodipine 10 mg PO DAILY 01/24/19 12/26/19 History bupropion HCl 150 mg PO BID 01/24/19 12/26/19 History doxazosin 2 mg PO HS 01/24/19 12/26/19 History losartan 100 mg PO HS 01/24/19 12/26/19 History metformin 1,000 mg PO BID 01/24/19 12/26/19 History aspirin [Children's Aspirin] 81 mg PO DAILY@0800 #30 tablet 03/13/19 12/26/19 Rx furosemide 40 mg PO DAILY #30 tablet 03/13/19 12/26/19 Rx ciclopirox 8 % topical solution 1 applic TOPICAL DAILY PRN 04/13/19 12/26/19 History omeprazole 40 mg capsule,delayed 40 mg PO DAILY 04/13/19 12/26/19 History release potassium chloride 20 mEq 20 meq PO DAILY 04/13/19 12/26/19 History tablet,extended release carvedilol [Coreg] 25 mg PO BID 04/28/19 12/26/19 History isosorbide mononitrate 30 mg PO HS 04/28/19 12/26/19 History Combivent Respimat 2 puff INHALATION PRN PRN 05/16/19 12/26/19 History atorvastatin 80 mg PO HS 05/16/19 12/26/19 History albuterol sulfate [Proventil HFA] 6 puff INHALATION QIDRT PRN #8.5 gm 11/02/19 12/26/19 Rx albuterol sulfate 2.5 mg INHALATION Q6HRT 12/25/19 12/26/19 History docusate sodium 100 mg PO Q12HR #60 cap 12/27/19 Rx hyoscyamine sulfate [Anaspaz] 0.125 mg PO Q4H PRN #120 tablet 12/27/19 Rx <Conrad Irby MD - Last Filed: 12/28/19 06:47> Laboratory Tests 12/25/19 12/25/19 12/25/19 20:51 20:51 20:51 WBC 8.1 K/mm3 K/mm3 (4.5-10.0) RBC 4.20 M/mm3 L M/mm3 (4.6-6.20) Hgb 13.1 g/dL L g/dL (14.0-18.0) Hct 38.0 % L % (42.0-52.0) MCV 90.5 fl fl (80-100) MCH 31.2 pg pg (26-34) MCHC 34.5 g/dl g/dl (32-36) RDW 13.7 % % (11.5-14.5) Plt Count 141 k/mm3 L k/mm3 (150-375) MPV 11.6 fl H fl (7.4-10.4) Immature Gran % (Auto) 0.4 % % (0-0.5) Neut % (Auto) 73.2 % H % (45.5-73.1) Lymph % (Auto) 16.4 % L % (18.3-44.2) [place] % (Auto) 8.2 % % (2.6-8.5) Eos % (Auto) 1.7 % % (0-4.4) Baso % (Auto) 0.1 % L % (0.2-1.2) Lymph # (Auto) 1.32 K/mm3 K/mm3 (0.9-3.2) [place] # (Auto) 0.7 K/mm3 H K/mm3 (0.1-0.6) Eos # (Auto) 0.1 K/mm3 K/mm3 (0-0.3) Baso # (Auto) 0.0 K/mm3 K/mm3 (0.0-0.1) Abs Immat Gran (auto) 0.03 K/mm3 K/mm3 (0.00-0.031) Absolute Neuts (auto) 5.9 K/mm3 K/mm3 (1.3-6.7) Absolute Nucleated RBC 0.0 K/mm3 K/mm3 (0.0-0.012) Nucleated RBC % 0.0 % % (0.0-0.2) % Immature Plt Fraction PT 13.8 Seconds Seconds (11.1-14.7) INR 1.1 APTT 31.3 SECONDS SECONDS (22.3-36.8) Sodium Potassium Chloride
--- NOTE | 2019-12-26 16:48 | WPDHPUPDATE1 ---
History and Physical Update Update Date/Time: 12/26/19 16:48 History and Physical has been reviewed, including an updated exam of the patient. There are NO changes in the patient's condition. Risks, benefits, and alternatives have been discussed and questions answered. Patient agrees to proceed with procedure. Chart and images reviewed. Will plan cysto., left stent placement today. Definitive stone management after further cardiac evaluation.
[2019-12-26] MEDS: LACTATED RINGERS 1,000 ML 30 ML IV CONT (17:00)
[2019-12-26 17:05] LABS: Glucose Point of Care 159 (65-105)
[2019-12-26] MEDS: FAMOTIDINE 20 MG/2 ML VIAL IV PUSH (17:18)
[2019-12-26] MEDS: ceFAZolin 3 GM/D5W 100 ML 100 ML IVPB (17:25)
--- NOTE | 2019-12-26 17:32 | PM.IMPN ---
Progress Note: A&P Assessment and Plan (1) Chest pain: Qualifiers: Chest pain type: unspecified Qualified Code(s): R07.9 - Chest pain, unspecified Code(s): R07.9 - Chest pain, unspecified Status: Acute Assessment and Plan: rule out acute coronary syndrome. Admit for observation to IMU. Telemetry. Trend troponin, nitro sublingual for chest pain. Monitor for chest pain. Cardiology consultation in a.m.. 12/26/19 17:32 patient is 59-year-old male with history of coronary artery disease status post stents in 2013 and 2014 yesterday apparently while cooking at home patient developed chest and presented emergency department for further evaluation however patient chest pain resolved he was seen by senior construction manager there were no changes in his EKG and tropes negative senior construction manager did not suspect acute coronary syndrome and no ischemic workup was recommended, in the hospital patient developed severe left flank pain radiating to growing to further evaluate patient had a CT scan of the abdomen showed patient has 15 mm stone at left ureteropelvic junction with mild left hydronephrosis. patient does have a history of kidney stone and has had seen urologist, patient was seen by urologist again today and patient is taken to urology lab to remove the left ureteral stone and further recommendation to follow. (2) Diabetes mellitus: Qualifiers: Diabetes mellitus type: type 2 Diabetes mellitus terminal gauger supervisor insulin use: with terminal gauger supervisor use Diabetes mellitus complication status: with hyperglycemia Qualified Code(s): E11.65 - Type 2 diabetes mellitus with hyperglycemia; Z79.4 - correction (current) use of insulin Code(s): E11.9 - Type 2 diabetes mellitus without complications Status: Chronic Assessment and Plan: Accu-Cheks, sliding scale insulin coverage, hypoglycemia protocol. Continue metformin. (3) COPD (chronic obstructive pulmonary disease): Qualifiers: COPD type: unspecified COPD Qualified Code(s): J44.9 - Chronic obstructive pulmonary disease, unspecified Code(s): J44.9 - Chronic obstructive pulmonary disease, unspecified Status: Chronic Assessment and Plan: Continue bronchodilators (4) CHF (congestive heart failure): Qualifiers: Heart failure type: unspecified Heart failure chronicity: chronic Qualified Code(s): I50.9 - Heart failure, unspecified Code(s): I50.9 - Heart failure, unspecified Status: Chronic Assessment and Plan: compensated. Monitor fluid status. Continue Coreg and Lasix therapy. (5) HLD (hyperlipidemia): Qualifiers: Hyperlipidemia type: unspecified Qualified Code(s): E78.5 - Hyperlipidemia, unspecified Code(s): E78.5 - Hyperlipidemia, unspecified Status: Chronic Assessment and Plan: Continue atorvastatin. (6) TAMIR on CPAP: Code(s): G47.33 - Obstructive sleep apnea (adult) (pediatric); Z99.89 - Dependence on other enabling machines and devices Status: Chronic Assessment and Plan: Continue CPAP. (7) HTN (hypertension): Qualifiers: Hypertension type: essential hypertension Qualified Code(s): I10 - Essential (primary) hypertension Code(s): I10 - Essential (primary) hypertension Status: Chronic Assessment and Plan: Monitor blood pressure. Continue home antihypertensives. (8) Chronic anticoagulation: Code(s): Z79.01 - correction (current) use of anticoagulants Status: Chronic Assessment and Plan: Continue Xarelto. (9) Left renal stone: Code(s): N20.0 - Calculus of kidney Status: Acute Assessment and Plan: plan is above Subjective Date/time seen: 12/26/19 17:32 patient is 59-year-old male with history of coronary artery disease status post stents in 2013 and 2014 yesterday apparently while cooking at home patient developed chest and presented emergency department for
[2019-12-26] MEDS: LIDOCAINE HCL 2% GEL UROJET 10 ML PKG MUCOUS MEM (17:40)
--- NOTE | 2019-12-26 17:48 | PM.PROC ---
Procedure Note - Detailed Date of procedure: 12/26/19 Pre-op diagnosis: Chest Pain Procedure performed: Cystoscopy, left retrograde pyelography, left ureteral stent placement Description of procedure: The patient was brought to the operative suite where he was prepped and draped in a routine sterile fashion while in the dorsal lithotomy position. A 19 F rigid cystoscope was placed in her bladder and the bladder was circumferentially inspected. There were no urethral strictures. The prostatic urethral estimated length was 2.5cm. There was moderate obstruction of the prostatic urethra with a moderate median lobe. The bladder mucosa was without hyperemia. There was no intravesical foreign body or neoplasm. There was a single orthotopic ureteral orifice bilaterally. I advanced .035 glidewire into the lef renal pelvis under fluoroscopy and did a left retrograde pyelogram to outline the left collecting system. A 4.8F variable length ureteral stent was positioned with the proximal coil in the renal pelvis and the distal coil in the bladder. Scopes and wires were removed after emptying the patient's bladder. Anesthesia: MAC Surgeon: Prakash Blanton MD Estimated blood loss (mL): 0 Drains: Yes (4.8F left ureteral stent) Packing: No Pathology: none sent Complications: No immediate complications Condition: stable Disposition: PACU
--- NOTE | 2019-12-26 18:15 | PC.NURSE ---
At approximately 16:00 the patient used his call light to ask for pain medication for a pain of 9/10. The patient was offered IVP Morphine as was ordered Q4H PRN and he refused stating That didn't work last time. Can I have more Dilaudid. That helped last time. It was explained to the patient that the Dilaudid was a one time order for breakthrough pain and it was not ordered at this time. The patient was informed that I would call Dr. Hodges to ask for Dilaudid. I proceeded to call Dr. Hodges who stated that the patient could, in fact, have another one time dose of Dilaudid. The order was entered and CAR Barrett arrived to the floor to take the patient to surgery. I informed Arnold that the order was just placed and was pending pharmacy verification before it could be pulled. I asked Arnold if he would like to wait and I could pull and administer the medication or if he wanted to get him downstairs and administer the medication then once it had time to be verified. Arnold stated he would administer it downstairs in pre-op. I informed the patient of this and saw him off in the hallway as Arnold took him downstairs. The patient stated understanding of when he would received the medication.
[2019-12-26 18:39] LABS: Glucose Point of Care 159 (65-105)
--- NOTE | 2019-12-26 19:18 | PC.NURSE ---
Report given to CAR Bryant on operation shift supervisor 2nd medical floor. The patient is transferring from 213 to 251. He is still in PACU at this time and will go straight to his new room. The patients belongings have been taken to his new room.
--- NOTE | 2019-12-26 20:05 | ADMGEN ---
This patient, Vini Zambrano, was admitted to Medical Room 251-01. Patient/family oriented to hospital policies and general routines including ID bracelet, bed and alarms, visiting hours, pain management, procedures, bathroom and other care routines, personal items, smoking policy, room service/diet, and visiting hours. Information on how to activate the Rapid Response Team has been discussed. Patient/Family are encouraged to report perceived risks to care and to ask questions if they do not understand what they are told or what they should do.
[2019-12-26] MEDS: DOXAZOSIN MESYLATE 2 MG TABLET PO (20:54)
[2019-12-26] MEDS: ATORVASTATIN 40 MG TABLET 80 MG PO (20:55)
[2019-12-26] MEDS: ISOSORBIDE MONONITRATE 30 MG TAB.ER.24H PO (20:55)
[2019-12-26] MEDS: LOSARTAN POTASSIUM 100 MG TABLET PO (20:55)
[2019-12-27] VITALS (11 sets, daily range): BP systolic 110–118; BP diastolic 47–66; PULSE 72–82; RESP 18–20; TEMP 36.3–36.7; O2SAT 95–98
[2019-12-27 00:32] LABS: Glucose Point of Care 200 (65-105)
[2019-12-27] MEDS: ALBUTEROL SULFATE NEB 2.5 MG/0.5 ML INH INHALATION ×3 (01:51→14:08)
[2019-12-27 02:37] LABS: Add Urine Microscopic? YES; Appearance Urine Clear (Clear); Bilirubin Urine Negative (Negative); Blood Urine 3+ (Negative); Color Urine Yellow (Yellow); Glucose Urine UA Negative (Negative); Ketones Urine Negative (Negative); Leukocyte Esterase Ur Trace LEU/UL (NEGATIVE); Mucus Urine Rare /lpf; Nitrate Urine Negative (Negative); Protein Urine 2+ mg/dL (Negative); RBC Urine >75 /hpf (0-2); Squamous Epithelial Cell Urine Rare /hpf (Few); Urobilinogen Urine Negative mg/dL (<2.0)
[2019-12-27 02:44] LABS: Specific Grav Ur 1.039 (1.001-1.035)
--- NOTE | 2019-12-27 07:30 | WPDUROPN2 ---
Progress Note: A&P Assessment and Plan (1) Left renal stone: Code(s): N20.0 - Calculus of kidney Status: Acute Assessment and Plan: Keep NPO. Obtain consent: Cystoscopy, left ureteroscopy with stent placement, left retrograde pyelogram. Plan to go to the OR for left stent placement. Patient will need to do PCNL as a second procedure at [facility] after meeting with Dr. Hines in the office as an outpatient to remove the stone. The stent should improve the patient's pain level. Obain a UA and reflex to culture if suspicious for UTI. (2) Hydronephrosis: Code(s): N13.30 - Unspecified hydronephrosis Status: Acute Assessment and Plan: 12/27/2019 Tolerating left stent better than usual. Will try sublingual Levsin for bladder spasms (and Colace to counteract constipation) Definitive stone mgmt. (PCNL vs. endoscopy) [id number]. Subjective Subjective Date/Time Seen: 12/27/19 07:30 Minimal left stent irritation - not as bad as usual Review of Systems Cardiovascular: Cardiovascular: Denies chest pain, Denies lightheadedness, Denies palpitations and Denies dyspnea Respiratory: Respiratory: Denies dyspnea Gastrointestinal: Gastrointestinal: Denies diarrhea, Denies nausea and Denies vomiting Genitourinary: Genitourinary: Denies hematuria and Denies dysuria Endocrine: Endocrine: Denies palpitations Exam Const: General: no acute distress Resp: Effort & Inspection: normal respiratory effort GI: Inspection: non-distended GI Palp: No abdominal tenderness and No Guarding due to palpation present (GI) Auscultation: normal bowel sounds Objective Data Vital Signs Vital Signs: Vital Signs - 24 hr 12/26/19 08:00 12/26/19 09:37 12/26/19 09:49 Temperature Pulse Rate 76 84 81 Respiratory Rate 20 20 Blood Pressure Pulse Oximetry 12/26/19 10:07 12/26/19 10:09 12/26/19 12:00 Temperature 97.2 F L Pulse Rate 85 85 81 Respiratory Rate 18 Blood Pressure 142/82 H 147/80 H Pulse Oximetry 98 12/26/19 14:00 12/26/19 14:45 12/26/19 14:52 Temperature Pulse Rate 79 71 72 Respiratory Rate 20 20 Blood Pressure Pulse Oximetry 12/26/19 16:00 12/26/19 16:07 12/26/19 17:10 Temperature 96.2 F L Pulse Rate 84 62 77 Respiratory Rate 18 16 Blood Pressure 140/62 145/74 H Pulse Oximetry 98 97 12/26/19 17:50 12/26/19 18:00 12/26/19 18:15 Temperature 97 F L Pulse Rate 82 76 78 Respiratory Rate 24 H 27 H 19 Blood Pressure 134/72 139/80 152/87 H Pulse Oximetry 95 95 96 12/26/19 18:30 12/26/19 18:45 12/26/19 19:00 Temperature Pulse Rate 81 79 75 Respiratory Rate 15 20 20 Blood Pressure 144/80 H 141/87 H 164/86 H Pulse Oximetry 97 96 96 12/26/19 19:15 12/26/19 19:30 12/26/19 20:00 Temperature 97.2 F L Pulse Rate 75 79 75 Respiratory Rate 16 18 18 Blood Pressure 148/82 H 148/83 H 125/68 Pulse Oximetry 95 95 96 12/26/19 20:15 12/26/19 20:24 12/26/19 20:25 Temperature 97.6 F Pulse Rate 76 80 80 Respiratory Rate 18 20 20 Blood Pressure 125/80 Pulse Oximetry 96 94 12/26/19 20:40 12/26/19 20:45 12/26/19 20:53 Temperature 97.5 F L Pulse Rate 77 81 80 Respiratory Rate 20 18 Blood Pressure 137/70 Pulse Oximetry 96 12/26/19 21:45 12/26/19 22:00 12/26/19 22:56 Temperature 97.6 F 97.2 F L Pulse Rate 79 18 L 78 Respiratory Rate 18 96 H 20 Blood Pressure 103/72 125/68 Pulse Oximetry 96 75 L 94 12/27/19 01:45 12/27/19 01:50 12/27/19 01:52 Temperature 98.0 F Pulse Rate 82 72 80 Respiratory Rate 20 20 20 Blood Pressure 115/56 L Pulse Oximetry 98 95 12/27/19 02:09 12/27/19 05:45 12/27/19 06:00 Temperature 97.3 F L 97.3 F L Pulse Rate 76 76 76 Respiratory Rate 20 18 18 Blood Pressure 110/47 L 110/47 L Pulse Oximetry 96 96 Intake/Output Intake/Output: Intake & Output 12/24/19 12/25/19 12/26/19 12/27/19 23:59 23:59 23:59 23:59 Intake Total 822 940 Output Total 18
--- NOTE | 2019-12-27 07:38 | WPDANESPN ---
Anes - Prog Note Post-Op Date/Time: 12/27/19 07:38 Cardiovascular status: normal Respiratory status: normal Airway patency: baseline Mental status: baseline Post-Op hydration status: normal Vital Signs: Last Vital Signs Temp 36.3 C L 12/27/19 06:00 Pulse 76 12/27/19 06:00 Resp 18 12/27/19 06:00 BP 110/47 L 12/27/19 06:00 Pulse Ox 96 12/27/19 06:00 Pain Score (VAS): 0/10. Patient resting in chair at time of assessment, appears comfortable. No additional issues or concerns identified by patient at time of assessment, all questions answered. I/O: Intake & Output 12/26/19 12/26/19 12/27/19 15:59 23:59 07:59 Intake Total 250 940 Output Total 459 237 7823 Balance -700 -450 -860 Laboratory Tests 12/26/19 02:56 12/26/19 02:56 12/26/19 12/26/19 12/26/19 11:18 15:37 17:03 POC Capillary Glucose 175 H 140 H 159 H Urine Color Urine Appearance Urine pH Ur Specific [place] Urine Protein Urine Glucose (UA) Urine Ketones Ur Blood (Man) Urine Nitrate Urine Bilirubin Urine Urobilinogen Ur Leukocyte Esterase Urine RBC Urine WBC Ur Squamous Epith Cells Urine Mucus 12/26/19 12/26/19 12/27/19 18:36 23:56 02:20 POC Capillary Glucose 159 H 200 H Urine Color Yellow Urine Appearance Clear Urine pH 5.0 Ur Specific [place] 1.039 H Urine Protein 2+ H Urine Glucose (UA) Negative Urine Ketones Negative Ur Blood (Man) 3+ H Urine Nitrate Negative Urine Bilirubin Negative Urine Urobilinogen Negative Ur Leukocyte Esterase Trace H Urine RBC >75 H Urine WBC 10-15 H Ur Squamous Epith Cells Rare Urine Mucus Rare Post-procedural complaints: none Patient Feedback: Patient satisfied with anesthetic care.
[2019-12-27] MEDS: metFORMIN HCL 500 MG TABLET 1000 MG PO (07:59)
[2019-12-27] MEDS: POTASSIUM CHLORIDE 20 MEQ TABLET.ER PO (07:59)
[2019-12-27] MEDS: PANTOPRAZOLE 40 MG TABLET PO (08:00)
[2019-12-27] MEDS: FUROSEMIDE 40 MG TABLET PO (08:00)
[2019-12-27] MEDS: amLODIPine BESYLATE 5 MG TABLET 10 MG PO (08:00)
[2019-12-27] MEDS: ASPIRIN 81 MG ENTERIC TABLET PO (08:00)
[2019-12-27] MEDS: carvediloL 25 MG TABLET PO (08:01)
[2019-12-27] MEDS: RIVAROXABAN 2.5 MG TABLET PO (08:01)
[2019-12-27] MEDS: HYOSCYAMINE SULFATE 0.125 MG TABLET PO (08:07)
[2019-12-27] MEDS: DOCUSATE SODIUM 100 MG CAPSULE PO (08:07)
[2019-12-27 10:03] LABS: Glucose Point of Care 171 (65-105)
[2019-12-27 12:05] LABS: Glucose Point of Care 195 (65-105)
--- NOTE | 2019-12-27 14:08 | PM.DS ---
DS: Admitting Diagnosis Admitting Diagnosis Admitting Diagnosis: Chest Pain DS: Discharge Diagnosis Discharge Diagnosis (1) Chest pain: Qualifiers: Chest pain type: unspecified Qualified Code(s): R07.9 - Chest pain, unspecified Code(s): R07.9 - Chest pain, unspecified Status: Acute Assessment and Plan: rule out acute coronary syndrome. Admit for observation to IMU. Telemetry. Trend troponin, nitro sublingual for chest pain. Monitor for chest pain. Cardiology consultation in a.m.. 12/26/19 17:32 patient is 59-year-old male with history of coronary artery disease status post stents in 2013 and 2014 yesterday apparently while cooking at home patient developed chest and presented emergency department for further evaluation however patient chest pain resolved he was seen by chain hooker there were no changes in his EKG and tropes negative chain hooker did not suspect acute coronary syndrome and no ischemic workup was recommended, in the hospital patient developed severe left flank pain radiating to growing to further evaluate patient had a CT scan of the abdomen showed patient has 15 mm stone at left ureteropelvic junction with mild left hydronephrosis. patient does have a history of kidney stone and has had seen urologist, patient was seen by urologist again today and patient is taken to urology lab to remove the left ureteral stone and further recommendation to follow. (2) Diabetes mellitus: Qualifiers: Diabetes mellitus type: type 2 Diabetes mellitus fpc insulin use: with buttermaker continuous churn use Diabetes mellitus complication status: with hyperglycemia Qualified Code(s): E11.65 - Type 2 diabetes mellitus with hyperglycemia; Z79.4 - roasterman (current) use of insulin Code(s): E11.9 - Type 2 diabetes mellitus without complications Status: Chronic Assessment and Plan: Accu-Cheks, sliding scale insulin coverage, hypoglycemia protocol. Continue metformin. (3) COPD (chronic obstructive pulmonary disease): Qualifiers: COPD type: unspecified COPD Qualified Code(s): J44.9 - Chronic obstructive pulmonary disease, unspecified Code(s): J44.9 - Chronic obstructive pulmonary disease, unspecified Status: Chronic Assessment and Plan: Continue bronchodilators (4) CHF (congestive heart failure): Qualifiers: Heart failure type: unspecified Heart failure chronicity: chronic Qualified Code(s): I50.9 - Heart failure, unspecified Code(s): I50.9 - Heart failure, unspecified Status: Chronic Assessment and Plan: compensated. Monitor fluid status. Continue Coreg and Lasix therapy. (5) HLD (hyperlipidemia): Qualifiers: Hyperlipidemia type: unspecified Qualified Code(s): E78.5 - Hyperlipidemia, unspecified Code(s): E78.5 - Hyperlipidemia, unspecified Status: Chronic Assessment and Plan: Continue atorvastatin. (6) TAMIR on CPAP: Code(s): G47.33 - Obstructive sleep apnea (adult) (pediatric); Z99.89 - Dependence on other enabling machines and devices Status: Chronic Assessment and Plan: Continue CPAP. (7) HTN (hypertension): Qualifiers: Hypertension type: essential hypertension Qualified Code(s): I10 - Essential (primary) hypertension Code(s): I10 - Essential (primary) hypertension Status: Chronic Assessment and Plan: Monitor blood pressure. Continue home antihypertensives. (8) Chronic anticoagulation: Code(s): Z79.01 - residential (current) use of anticoagulants Status: Chronic Assessment and Plan: Continue Xarelto. (9) Left renal stone: Code(s): N20.0 - Calculus of kidney Status: Acute Assessment and Plan: plan is above DS: Summary Hospital Course Reason for hospitalization: Chief complaint: Chest Pain Narrative: This is a 59 year old morbidly obese Diabetic male with known history
== END 2019-12-27 15:48 | disposition home or self-care (01) | DRG 660 ==
LOC: ANHED 21:47 → ANHIMU 22:32 → ANH2MED 12-27 14:04 → ANHIMU 12-28 15:53
PROVIDERS: Nurse Practitioner Adult Health; Urology; Admitting Provider Family Medicine; Emergency Provider Emergency Medicine; PCP Registered Nurse; Visit Provider Family Medicine
PROC: 0T778DZ Dilation of Left Ureter with Intraluminal Device, Via Natural or Artificial Opening Endoscopic (ICD-10-PCS; CPT 52352; principal; 2019-12-26 16:00)
DX: N13.2 Hydronephrosis with renal and ureteral calculous obstruction (principal); Z68.41 Body mass index [BMI] 40.0-44.9, adult; E11.42 Type 2 diabetes mellitus with diabetic polyneuropathy; E11.51 Type 2 diabetes mellitus with diabetic peripheral angiopathy without gangrene; I11.0 Hypertensive heart disease with heart failure; I50.9 Heart failure, unspecified; R07.9 Chest pain, unspecified; I25.10 Atherosclerotic heart disease of native coronary artery without angina pectoris; E66.01 Morbid (severe) obesity due to excess calories; F17.210 Nicotine dependence, cigarettes, uncomplicated; E11.65 Type 2 diabetes mellitus with hyperglycemia; G47.33 Obstructive sleep apnea (adult) (pediatric); E78.5 Hyperlipidemia, unspecified; J44.9 Chronic obstructive pulmonary disease, unspecified; Z79.01 Long term (current) use of anticoagulants; Z79.4 Long term (current) use of insulin; Z79.82 Long term (current) use of aspirin; Z86.73 Personal history of transient ischemic attack (TIA), and cerebral infarction without residual deficits; Z87.442 Personal history of urinary calculi; Z95.5 Presence of coronary angioplasty implant and graft; Z99.89 Dependence on other enabling machines and devices
CPT/HCPCS: 36415; 71045; 74177; 74420; 80048; 81001; 83690; 83880; 84484; 85025; 85055; 85610; 85730; 93005; 94640; 96374; 96375; 99285; A9270; C1758; C1769; C1887; C2617; G0378; J0690; J1100; J1170; J1885; J2250; J2270; J2405; J2704; J3010; J7120; Q9966; Q9967

== ENCOUNTER 2020-01-02 14:29 | Emergency (ER) | payer MEDICARE, MEDICAID, SELFPAY ==
--- NOTE | ~2020-01-02 | CT_ITS ---
EXAMINATION: CT abdomen pelvis wo con DATE: 01/02/2020 15:26 INDICATION: Left flank pain. TECHNIQUE: Computed tomography (CT) of the abdomen and pelvis was performed without intravenous contr ast. Automated exposure control and iterative reconstruction technique were employed. The dose-length product was 1424.71 mGy-cm. COMPARISON: CT abdomen and pelvis 12/26/2019 FINDINGS: The visualized portions of lung bases demonstrate mild atelectasis. There is a small left p leural effusion. The heart size is normal. There are coronary artery calcifications. No pericardial e ffusion. There is diffuse hepatic steatosis. There are changes of cholecystectomy. The spleen and isaacs creas are normal. There are masses in the adrenal glands containing macroscopic fat measuring up to 3 .6 cm on the left, consistent with myelolipomas. There is a 1.8 cm cyst in right kidney. There are 13 mm, 4 mm, and 5 mm stones in left kidney. There is a left internal ureteral stent in expected positi on. The prostate is mildly enlarged. There is a right inguinal hernia containing fat. There is divert iculosis of the colon without evidence of diverticulitis. Appendix is normal. There are no pathologic ally enlarged lymph nodes. There is no free intraperitoneal fluid. There is mild thoracolumbar spondy losis. There are bridging endplate osteophytes at multiple levels in the thoracic spine, consistent w ith diffuse idiopathic skeletal hyperostosis (DISH). There are chronic sclerotic lesions in proximal left femur, likely benign. IMPRESSION: 1. Stones in left kidney. Left internal ureteral stent in expected position. 2. Stable small left pleural effusion. 3. Diffuse hepatic steatosis. Reviewed, dictated and finalized at location A. [facility]
[2020-01-02 14:30] VITALS: BP 126/65; PULSE 96; RESP 22; TEMP 36.2; O2SAT 97
[2020-01-02 14:45] LABS: Basophils Percent Auto 0.4 % (0.2-1.2); Eosinophils Absolute Auto 0.2 K/mm3 (0-0.3); Eosinophils Percent Auto 2.2 % (0-4.4); Hematocrit 39.5 % (42.0-52.0); Hemoglobin 13.5 g/dL (14.0-18.0); Immature Granulocyte Absolute 0.03 K/mm3 (0.00-0.031); Immature Granulocyte Percent A 0.4 % (0-0.5); Immature Platelet Fraction Pct 6.5 % (0.9-11.2); Lymphocytes Absolute Auto 1.34 K/mm3 (0.9-3.2); Lymphocytes Percent Auto 15.7 % (18.3-44.2); Mean Corpuscular HGB Conc 34.2 g/dl (32-36); Mean Corpuscular Hemoglobin 30.9 pg (26-34); Mean Corpuscular Volume 90.4 fl (80-100); Mean Platelet Volume 11.4 fl (7.4-10.4); Monocytes Absolute Auto 0.7 K/mm3 (0.1-0.6); Monocytes Percent Auto 7.7 % (2.6-8.5); Neutrophils Absolute Auto 6.3 K/mm3 (1.3-6.7); Neutrophils Percent Auto 73.6 % (45.5-73.1); Platelet Count Result 142 k/mm3 (150-375); Red Blood Count 4.37 M/mm3 (4.6-6.20); Red Cell Distribution Width 13.4 % (11.5-14.5); White Blood Count 8.5 K/mm3 (4.5-10.0)
[2020-01-02 14:56] LABS: Anion Gap 14 mmol/L (8-16); Blood Urea Nitrogen 13 mg/dL (9-20); Carbon Dioxide 20 mmol/L (22-30); Chloride 100 mmol/L (98-107); Estimated CRCL calculation 104 ml/min; Estimated Glomerular Filt Rate > 60; Glucose 254 mg/dL (75-110); Sodium 134 mmol/L (137-145)
[2020-01-02] MEDS: SODIUM CHLORIDE 0.9% IV 1,000 ML 999 ML IV CONT (15:43)
[2020-01-02 15:47] LABS: Add Urine Microscopic? YES; Appearance Urine Cloudy (Clear); Bilirubin Urine Negative (Negative); Blood Urine 3+ (Negative); Color Urine Yellow (Yellow); Glucose Urine UA Negative (Negative); Ketones Urine Negative (Negative); Leukocyte Esterase Ur Trace LEU/UL (Negative); Mucus Urine Few /lpf; Nitrate Urine Negative (Negative); Protein Urine 2+ mg/dL (Negative); RBC Urine >75 /hpf (0-2); Specific Grav Ur 1.019 (1.001-1.035); Urobilinogen Urine Negative mg/dL (<2.0)
--- NOTE | 2020-01-02 16:24 | ED.ABDPAIN ---
HPI - Abdominal Pain General Chief Complaint: Abdominal Pain Stated Complaint: left flank pain Time Seen by Provider: 01/02/20 14:46 Source: patient Mode of arrival: ambulatory Limitations: no limitations History of Present Illness HPI narrative: 59 years old white male presents with left flank pain. Started around noon today. Patient denies any fever, chills, vomiting, diarrhea, constipation, shortness of breath, chest pain, sore throat, headache, exposure to anybody was COVID-19. Patient is status post left ureteral stent placement 1 week ago. Patient on Xarelto. History of diabetes, hypertension and hyperlipidemia. Related Data Home Medications Medication Instructions Recorded Confirmed Trulicity 1.5 mg SUBCUT WEEKLY 01/24/19 12/26/19 Xarelto 2.5 mg PO BID 01/24/19 12/26/19 amlodipine 10 mg PO DAILY 01/24/19 12/26/19 bupropion HCl 150 mg PO BID 01/24/19 12/26/19 doxazosin 2 mg PO HS 01/24/19 12/26/19 losartan 100 mg PO HS 01/24/19 12/26/19 metformin 1,000 mg PO BID 01/24/19 12/26/19 ciclopirox 8 % topical solution 1 applic TOPICAL DAILY PRN 04/13/19 12/26/19 omeprazole 40 mg capsule,delayed 40 mg PO DAILY 04/13/19 12/26/19 release potassium chloride 20 mEq 20 meq PO DAILY 04/13/19 12/26/19 tablet,extended release carvedilol [Coreg] 25 mg PO BID 04/28/19 12/26/19 isosorbide mononitrate 30 mg PO HS 04/28/19 12/26/19 Combivent Respimat 2 puff INHALATION PRN PRN 05/16/19 12/26/19 atorvastatin 80 mg PO HS 05/16/19 12/26/19 albuterol sulfate 2.5 mg INHALATION Q6HRT 12/25/19 12/26/19 Allergies Allergy/AdvReac Type Severity Reaction Status Date / Time No Known Allergies Allergy Unknown Verified 12/23/19 10:29 Review of Systems Review of Systems: Narrative: CONSTITUTIONAL: Denies fever, chills, or sweats. EYES: Denies visual changes, redness, or discharge. ENT: Denies rhinorrhea, congestion, sore throat, or otalgia. CARDIOVASCULAR: Denies chest pain, palpitations, or edema. RESPIRATORY: Denies cough or dyspnea. GASTROINTESTINAL: Denies abdominal pain, nausea, vomiting, or diarrhea. GENITOURINARY: Denies dysuria or hematuria. SKIN: Denies rash or itching. MUSCULOSKELETAL: Denies back pain, joint pain, or myalgia. NEUROLOGIC: Denies headache, numbness, or weakness. PSYCHIATRIC: Denies anxiety or depression. [facility] Past Medical History Medical History Anxiety Arthritis BMI greater than 40 CAD (coronary artery disease) CHF (congestive heart failure) Constipation COPD (chronic obstructive pulmonary disease) CVA (cerebral vascular accident) With mild left-sided weakness. Depression Diabetes mellitus Type 2 diabetes. Diarrhea Dizziness Eczema Fracture of fifth toe, right, closed GERD (gastroesophageal reflux disease) GI bleed Headache Hearing loss History of blood clots History of gastric ulcer HLD (hyperlipidemia) Hoarseness HTN (hypertension) Kidney stones Left knee pain Medial meniscus tear Myocardial infarction Nausea and vomiting TAMIR on CPAP Peripheral neuropathy Pneumonia Psoriasis PVD (peripheral vascular disease) Rectal polyp Seasonal allergies Shortness of breath Sleep apnea Sleep disorder Stomach pain TIA (transient ischemic attack) Type 2 diabetes mellitus UTI (urinary tract infection) Vertigo Vision abnormalities Weight gain Surgical History Surgical History H/O heart artery stent 2 H/O lithotripsy History of cardiac catheterization 2 stents History of loop recorder History of rectal polypectomy Hx of cholecystectomy Hx of tonsillectomy Family History Family History Mother Diabetes mellitus Kidney stones Father Acute myocardial infarction Kidney stones Heart disease Sibling Heart disease Other Arthritis Hypertension Social History Social History (Reviewed 01/02/20 @ 16:33 by Jesus Finney
[2020-01-02] MEDS: KETOROLAC (*BKC) 60 MG/2 ML VIAL IM (16:35)
[2020-01-02] MEDS: ONDANSETRON HCL ODT 4 MG TABLET PO (16:35)
[2020-01-02] MEDS: HYDROmorphone HCL INJ (*CRX) 1 MG/ML SYR IM (16:37)
== END 2020-01-02 17:19 | disposition home or self-care (01) ==
PROVIDERS: Emergency Provider Emergency Medicine; PCP Registered Nurse
DX: N20.0 Calculus of kidney (principal); T83.84XA Pain due to genitourinary prosthetic devices, implants and grafts, initial encounter; I25.10 Atherosclerotic heart disease of native coronary artery without angina pectoris; I50.9 Heart failure, unspecified; I11.0 Hypertensive heart disease with heart failure; J44.9 Chronic obstructive pulmonary disease, unspecified; I69.954 Hemiplegia and hemiparesis following unspecified cerebrovascular disease affecting left non-dominant side; E11.42 Type 2 diabetes mellitus with diabetic polyneuropathy; E78.5 Hyperlipidemia, unspecified; I25.2 Old myocardial infarction; G47.33 Obstructive sleep apnea (adult) (pediatric); E11.51 Type 2 diabetes mellitus with diabetic peripheral angiopathy without gangrene; Z87.440 Personal history of urinary (tract) infections; Z87.19 Personal history of other diseases of the digestive system; Z87.442 Personal history of urinary calculi; Z79.01 Long term (current) use of anticoagulants; Z79.84 Long term (current) use of oral hypoglycemic drugs; F32.9 Major depressive disorder, single episode, unspecified; F41.9 Anxiety disorder, unspecified; Z95.5 Presence of coronary angioplasty implant and graft; Z87.891 Personal history of nicotine dependence; K76.0 Fatty (change of) liver, not elsewhere classified
CPT/HCPCS: 36415; 74176; 80048; 81001; 85025; 85055; 87086; 96360; 96372; 99284; A9270; J1170; J1885; J7030

== ENCOUNTER 2020-01-16 01:58 | Outpatient (CLI) | payer MEDICARE, MEDICAID, SELFPAY ==
[2020-01-16 21:22] LABS: SARS-CoV-2 RNA PCR Negative
== END 2020-01-16 01:59 | disposition home or self-care (01) ==
LOC: ANHCOVIDDT 02:02
PROVIDERS: PCP Registered Nurse; Visit Provider Urology
DX: Z01.818 Encounter for other preprocedural examination (principal); Z20.828 Contact with and (suspected) exposure to other viral communicable diseases
CPT/HCPCS: 87635; C9803; U0003

== ENCOUNTER 2020-01-19 00:45 | Day surgery (SDC) | payer MEDICARE, MEDICAID, SELFPAY ==
[2020-01-09 18:16] VITALS: BMI 45.9
--- NOTE | 2020-01-17 07:43 | PM.HPGS ---
History of Present Illness History of Present Illness Consent: Risks, benefits, and alternatives have been discussed and questions answered. Patient agrees to proceed with procedure. Chief complaint: Left Renal Stone Narrative: Vini Zambrano is a 59 year old male who has struggled with a large stone in his left kidney for several months. He has undergone ESWL with only partial fragmentation of the stone. Patient is opposed to percutaneous nephrolithotomy and elects instead for endoscopic approach to this residual stone in his left kidney. He is aware the risks including, but not on limited to, adverse cardiopulmonary events residual stone, hematuria and the need for stent placement. Review of Systems Cardiovascular: Cardiovascular: Denies chest pain, Denies lightheadedness, Denies palpitations and Denies dyspnea Respiratory: Respiratory: Denies dyspnea Gastrointestinal: Gastrointestinal: Denies diarrhea, Denies nausea and Denies vomiting Genitourinary: Genitourinary: Denies hematuria and Denies dysuria Endocrine: Endocrine: Denies palpitations PMFSH Past Medical History Medical History Anxiety Arthritis BMI greater than 40 CAD (coronary artery disease) CHF (congestive heart failure) Constipation COPD (chronic obstructive pulmonary disease) CVA (cerebral vascular accident) With mild left-sided weakness. Depression Diabetes mellitus Type 2 diabetes. Diarrhea Dizziness Eczema Fracture of fifth toe, right, closed GERD (gastroesophageal reflux disease) GI bleed Headache Hearing loss History of blood clots History of gastric ulcer HLD (hyperlipidemia) Hoarseness HTN (hypertension) Kidney stones Left knee pain Medial meniscus tear Myocardial infarction Nausea and vomiting TAMIR on CPAP Peripheral neuropathy Pneumonia Psoriasis PVD (peripheral vascular disease) Rectal polyp Seasonal allergies Shortness of breath Sleep apnea Sleep disorder Stomach pain TIA (transient ischemic attack) Type 2 diabetes mellitus UTI (urinary tract infection) Vertigo Vision abnormalities Weight gain Surgical History Surgical History H/O heart artery stent 2 H/O lithotripsy History of cardiac catheterization 2 stents History of loop recorder History of rectal polypectomy Hx of cholecystectomy Hx of tonsillectomy Family History Family History Mother Diabetes mellitus Kidney stones Father Acute myocardial infarction Kidney stones Heart disease Sibling Heart disease Other Arthritis Hypertension Social History Social History Social History: The patient is and has no children. Rena Dodd is his durable power assistant county attorney for healthcare with whom he lives as a roommate. He is a full code. He does smoke 3 cigarettes per day currently. No current alcohol use. 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
--- NOTE | ~2020-01-19 | XR_ITS ---
EXAMINATION: XR retrograde pyelo w/stent LT EXAM DATE: 01/19/2020 15:35 INDICATION: Left kidney stones. Stent placement. TECHNIQUE: Fluoroscopy used during XR retrograde pyelo w/stent LT performed by Dr. Prakash Blanton MD. The DAP for this procedure was 4760 radcm2. Cine run(s) available for review. FINDINGS: Images demonstrate left ureter being cannulated, injected. Mild left hydronephrosis. Brain elate with procedure note. IMPRESSION: Fluoroscopy used during procedure. Reviewed, dictated and finalized at location A. RTMENT CLERK
--- NOTE | 2020-01-19 08:17 | WPDANESEPPF ---
Anes - Initial Pre Proc Eval Procedure: Operation Date: 01/19/20 14:00 Proposed Procedures p Cystoscopy, Left Ureteroscopy, Left Stone Extraction, Possible Left Stent Placement - Prakash Blanton MD s Holmium Laser Lithotripsy - Prakash Blanton MD Date/Time: 01/19/20 08:17 Surgeon: Prakash Blanton MD Pre Op Diagnosis: Left Renal Stone Patient Data Age: 59 Gender: M Height: 1.83 m Weight: 153.63 kg Allergies Allergy/AdvReac Type Severity Reaction Status Date / Time No Known Allergies Allergy Unknown Verified 01/09/20 17:33 Home Medications Medication Instructions Recorded Confirmed Type Trulicity 1.5 mg SUBCUT WEEKLY 01/24/19 01/09/20 History Xarelto 2.5 mg PO BID 01/24/19 01/09/20 History amlodipine 10 mg PO DAILY 01/24/19 01/09/20 History bupropion HCl 150 mg PO BID 01/24/19 01/09/20 History doxazosin 2 mg PO HS 01/24/19 01/09/20 History losartan 100 mg PO HS 01/24/19 01/09/20 History metformin 1,000 mg PO BID 01/24/19 01/09/20 History aspirin [Children's Aspirin] 81 mg PO DAILY@0800 #30 tablet 03/13/19 01/09/20 Rx furosemide 40 mg PO DAILY #30 tablet 03/13/19 01/09/20 Rx ciclopirox 8 % topical solution 1 applic TOPICAL DAILY PRN 04/13/19 01/09/20 History omeprazole 40 mg capsule,delayed 40 mg PO DAILY 04/13/19 01/09/20 History release potassium chloride 20 mEq 20 meq PO DAILY 04/13/19 01/09/20 History tablet,extended release carvedilol [Coreg] 25 mg PO BID 04/28/19 01/09/20 History Combivent Respimat 2 puff INHALATION PRN PRN 05/16/19 01/09/20 History atorvastatin 80 mg PO HS 05/16/19 01/09/20 History hyoscyamine sulfate [Anaspaz] 0.125 mg PO Q4H PRN #120 tablet 12/27/19 01/09/20 Rx ondansetron HCl [Zofran] 4 mg PO Q6H PRN #10 tablet 01/02/20 01/09/20 Rx oxycodone-acetaminophen [Endocet] 1 tablet PO Q6H PRN #20 tablet 01/02/20 01/09/20 Rx albuterol sulfate [Ventolin HFA] INHALATION 01/09/20 History budesonide-formoterol [Symbicort] INHALATION 01/09/20 History isosorbide mononitrate 60 mg PO DAILY 01/09/20 01/09/20 History ECG: Date of Service: 12/25/19 Procedure(s): CA 12 lead EKG Accession Number(s): [id number] cc: ~ Measurements Intervals [place] Rate: 89 P: 31 [place]: 152 QRS: 6 QRSD: 161 T: 29 QT: 419 QTc: 512 Interpretive Statements SINUS RHYTHM RIGHT BUNDLE BRANCH BLOCK ABNORMAL ECG Electronically Signed On 12-26-2019 7:01:28 CDT by Mathew Landon D.O. Dictated By: Mathew Landon DO 12/25/192044 Other Studies: Exam Date: 09/30/2019 2:20 PM Indications - cva Complete two-dimensional, color flow and Doppler transthoracic echocardiogram is performed with contrast to opacify the left ventricle and to improve the deliniation of the left ventricle endocardial borders. Reason for Poor Study: patient body habitus Summary 1. Left ventricular systolic function is hyperdynamic, estimated at 65-70%. 2. Definity contrast used to improve visualization. 3. Right ventricular chamber dimension is normal. 4. No valvular abnormalities. Mild pulmonary hypertension, estimated pulmonary arterial systolic pressure is 43 mmHg. Patient hx anesthesia problems: none Family hx anesthesia problems: none [facility] Past Medical History Medical History Anxiety Arthritis BMI greater than 40 CAD (coronary artery disease) CHF (congestive heart failure) Constipation COPD (chronic obstructive pulmonary disease) CVA (cerebral vascular accident) With mild left-sided weakness. Depression Diabetes mellitus Type 2 diabetes. Diarrhea Dizziness Eczema Fracture of fifth toe, right, closed GERD (gastroesophageal reflux disease) GI
--- NOTE | 2020-01-19 11:35 | WPDHPUPDATE1 ---
History and Physical Update Update Date/Time: 01/19/20 11:35 History and Physical has been reviewed, including an updated exam of the patient. There are NO changes in the patient's condition. Risks, benefits, and alternatives have been discussed and questions answered. Patient agrees to proceed with procedure.
[2020-01-19 12:02] VITALS: BP 127/85; PULSE 83; RESP 18; TEMP 35.8; O2SAT 98
[2020-01-19] MEDS: LACTATED RINGERS 1,000 ML 30 ML IV CONT (12:25)
[2020-01-19 12:30] LABS: Glucose Point of Care 126 (65-105)
[2020-01-19] MEDS: ceFAZolin 3 GM/D5W 100 ML 100 ML IVPB (14:13)
[2020-01-19] MEDS: KETOROLAC 30 MG/ML VIAL (*BKC) IV PUSH (14:32)
[2020-01-19 15:40] VITALS: BP 156/98; PULSE 90; RESP 20; TEMP 36.2; O2SAT 94
[2020-01-19] MEDS: ONDANSETRON INJ 4 MG/2 ML VIAL IV PUSH (15:49)
--- NOTE | 2020-01-19 15:50 | PM.PROC ---
Procedure Note - Detailed Date of procedure: 01/19/20 Pre-op diagnosis: Left Renal Stone Post-op diagnosis: same Procedure performed: 1. Cystoscopy with left ureteral stent removal and replacement 2. Left ureteroscopy with laser lithotripsy and stone extraction Description of procedure: patient brought to the operatory was prepped and draped in routine sterile fashion while in a dorsal lithotomy position after the uneventful induction of a general LMA anesthetic. Cystoscopy is undertaken with a 19 F rigid cystoscope. The tip of the indwelling stent is grasped and the stent is removed with ease. A 0.035 glidewire was advanced in the left renal pelvis in the ureters dilated with an 8 F 10 F dilator. Left ureteroscopy is undertaken with a 7.5 F flexible ureteral scope. He has a large 2 cm renal pelvic stone. Using a 373 micron holmium laser I dusted the stone and a tiny little fragments, all of which should pass with ease and many of which irrigated down the ureter and out during the course of this procedure. are placed a 4.8 F double-J ureteral stent with proximal coil of left kidney and the distal coil in the bladder. Scopes wires removed he was taken recovery in good conditi Surgeon: Prakash Blanton MD Drains: Yes (4.8F left ureteral stent) Packing: No Pathology: yes (Left ureteral stone) Complications: No immediate complications Condition: stable Disposition: PACU
[2020-01-19 15:53] LABS: Glucose Point of Care 102 (65-105)
[2020-01-19 15:55] VITALS: BP 125/78; PULSE 82; RESP 14; O2SAT 95
[2020-01-19 16:06] VITALS: BP 163/75; PULSE 79; RESP 14
[2020-01-19] MEDS: oxyCODONE HCL (*CRX) 5 MG TAB IR PO (16:28)
[2020-01-19 16:30] VITALS: BP 155/82; PULSE 76; RESP 14
[2020-01-19 17:19] VITALS: BP 161/93; PULSE 75; RESP 14
--- NOTE | 2020-01-19 17:38 | SUR.PHASEII ---
DR VELIZ WROTE SCRIPT FOR HYOSCYAMINE LATE,PT ALREADY DISCHARGED. CALLED SCRIPT TO PHARMACY.PT NOTIFIED OF SCRIPT.
== END 2020-01-19 17:30 | disposition home or self-care (01) ==
PROVIDERS: PCP Registered Nurse; Visit Provider Urology
PROC: (CPT 52352; principal; 2020-01-19 14:00)
PROC: (CPT 52356; 2020-01-19 14:00)
DX: N20.0 Calculus of kidney (principal); I11.0 Hypertensive heart disease with heart failure; I50.9 Heart failure, unspecified; I25.10 Atherosclerotic heart disease of native coronary artery without angina pectoris; J44.9 Chronic obstructive pulmonary disease, unspecified; F41.8 Other specified anxiety disorders; K21.9 Gastro-esophageal reflux disease without esophagitis; I25.2 Old myocardial infarction; E78.5 Hyperlipidemia, unspecified; G47.33 Obstructive sleep apnea (adult) (pediatric); E11.42 Type 2 diabetes mellitus with diabetic polyneuropathy; L40.9 Psoriasis, unspecified; Z86.73 Personal history of transient ischemic attack (TIA), and cerebral infarction without residual deficits; K59.00 Constipation, unspecified; Z95.5 Presence of coronary angioplasty implant and graft; F17.210 Nicotine dependence, cigarettes, uncomplicated; E66.01 Morbid (severe) obesity due to excess calories; Z68.42 Body mass index [BMI] 45.0-49.9, adult; Z79.82 Long term (current) use of aspirin; Z79.84 Long term (current) use of oral hypoglycemic drugs; Z79.01 Long term (current) use of anticoagulants
CPT/HCPCS: 52356; 74420; A9270; C1769; C1894; C2617; J0690; J1885; J2405; J2704; J7120; Q9966

== ENCOUNTER 2020-02-02 12:10 | Outpatient (CLI) | payer MEDICARE, MEDICAID, SELFPAY ==
--- NOTE | ~2020-02-02 | XR_ITS ---
XR abdomen/kub 1V 02/02/2020 12:38 Indication: Kidney stones Procedure: KUB Comparison: Comparison to multiple prior studies sequentially, with oldest reviewed study dated 07/25. Findings: Bowel gas pattern is nonobstructive. There is a left internal ureteral stent. There are alejandra cifications in the pelvis some of which are adjacent to the ureteral stent. Cannot exclude distal ure teral stones. No acute osseous abnormality. Next field Impression: 1: Possible distal left ureteral stones adjacent to the internal ureteral stent at the pelvic level. Reviewed, dictated and finalized at location B. E BENDER Impression: 1: Possible distal left ureteral stones adjacent to the internal ureteral stent at the pelvic level.
== END 2020-02-02 12:11 | disposition home or self-care (01) ==
LOC: ANHIMG 12:20
PROVIDERS: PCP Registered Nurse; Visit Provider Urology
DX: N20.0 Calculus of kidney (principal)
CPT/HCPCS: 74018

== ENCOUNTER 2020-03-06 12:04 | Emergency (ER) | payer MEDICARE, MEDICAID, SELFPAY ==
--- NOTE | ~2020-03-06 | XR_ITS ---
XR knee RT min 4V 03/06/2020 13:01 Indication: Right knee pain Procedure: 4 views right knee Comparison: No prior studies for comparison. Findings: No acute fracture, subluxation or dislocation. No significant joint space narrowing. No miguel angel nt effusion. There are atherosclerotic changes. Impression: 1: No acute bone or joint abnormality. Reviewed, dictated and finalized at location A. IRATORY MANAGER Impression: 1: No acute bone or joint abnormality.
--- NOTE | ~2020-03-06 | CT_ITS ---
EXAMINATION: CT brain wo con DATE: 03/06/2020 12:41 INDICATION: Dizziness. TECHNIQUE: Computed tomography (CT) of the head was performed without intravenous contrast. The mA wa s adjusted according to patient size. Iterative reconstruction technique was employed. The dose-lengt h product was 605.33 mGy-cm. COMPARISON: Head CT 11/30/2019 FINDINGS: There are scattered areas of low attenuation in the cerebral white matter. There is an area of cystic encephalomalacia in the right frontoparietal deep white matter. There is no intracranial h emorrhage, acute infarction, or abnormal intracranial mass lesion. The ventricles are normal in size. There is mild mucosal thickening in the ethmoid sinuses. The mastoid air cells are normal. The orbit s are normal. IMPRESSION: 1. Cystic encephalomalacia in the right frontoparietal deep white matter. 2. Stable mild nonspecific cerebral white matter disease, which likely represents chronic small vesse l ischemic disease. Reviewed, dictated and finalized at location A. DITIONARY FIGHTING VEHICLE CREWMAN IMPRESSION: 1. Cystic encephalomalacia in the right frontoparietal deep white matter. 2. Stable mild nonspecific cerebral white matter disease, which likely represen ts chronic small vessel ischemic disease.
--- NOTE | ~2020-03-06 | XR_ITS ---
EXAMINATION: XR ankle LT min 3V DATE: 03/06/2020 13:01 INDICATION: Left ankle injury and pain. TECHNIQUE: 4 views of left ankle were obtained. COMPARISON: Left ankle radiographs 11/12/2015 FINDINGS: Bone alignment is normal. No fracture. There is moderate midfoot osteoarthritis. There are enthesophytes at the posterior and plantar aspects of calcaneal tuberosity. Ankle soft tissue swellin g is noted. IMPRESSION: 1. No fracture. Reviewed, dictated and finalized at location A. TICS MECHANIC IMPRESSION: 1. No fracture.
--- NOTE | ~2020-03-06 | XR_ITS ---
EXAMINATION: XR clavicle LT DATE: 03/06/2020 13:01 INDICATION: Left shoulder pain. TECHNIQUE: 2 views of left clavicle were obtained. COMPARISON: None. FINDINGS: Bone alignment is normal. No fracture. Coracoclavicular interval is normal. There is severe acromioclavicular joint osteoarthritis and mild glenohumeral joint osteoarthritis. IMPRESSION: 1. Polyarticular osteoarthritis. Reviewed, dictated and finalized at location A. GER OF FINANCE
--- NOTE | ~2020-03-06 | CT_ITS ---
EXAMINATION: CT cervical spine wo con DATE: 03/06/2020 12:41 INDICATION: Neck pain. TECHNIQUE: Computed tomography (CT) of the cervical spine was performed without intravenous contrast. Automated exposure control and iterative reconstruction technique were employed. The dose-length pro duct was 593.66 mGy-cm. COMPARISON: CT cervical spine 11/12/2015 FINDINGS: An 11 mm subcutaneous cyst in the right posterior neck is likely a sebaceous cyst. There is mild kyphosis of cervical spine. Vertebral body heights are normal. There is mildly decreased disc h eight at C4-C5 and moderately decreased disc height at C6-C7. There is severely decreased disc height at C5-C6 with interbody fusion. The following disc levels are specifically discussed: C2-C3: There is mild bilateral uncovertebral joint osteoarthritis. There is mild bilateral facet join t osteoarthritis. There is no neural foraminal stenosis. There is no central canal stenosis. C3-C4: There is moderate right and severe left uncovertebral joint osteoarthritis. There is severe bi lateral facet joint osteoarthritis. There is mild right and moderate left neural foraminal stenosis. There is mild central canal stenosis. C4-C5: There is mild bilateral uncovertebral joint osteoarthritis. There is severe bilateral facet elvin int osteoarthritis. There is mild bilateral neural foraminal stenosis. There is no central canal sten osis. C5-C6: There is moderate right and severe left uncovertebral joint hypertrophy. There is mild bilater al facet joint osteoarthritis. There is mild right and moderate left neural foraminal stenosis. There is mild central canal stenosis. C6-C7: There is severe bilateral uncovertebral joint osteoarthritis. There is moderate bilateral face t joint osteoarthritis. There is moderate bilateral neural foraminal stenosis. There is mild central canal stenosis. C7-T1: There is no uncovertebral joint osteoarthritis. There is moderate bilateral facet joint osteoa rthritis. There is no neural foraminal stenosis. There is no central canal stenosis. IMPRESSION: 1. No fracture. 2. Moderate cervical spondylosis. 3. Interbody fusion at C5-C6. Reviewed, dictated and finalized at location A. ORMAL PAD FORMER
[2020-03-06 12:19] VITALS: BP 148/84; PULSE 82; RESP 20; TEMP 36; O2SAT 98
--- NOTE | 2020-03-06 12:25 | ECG_ITS ---
Measurements Intervals [place] Rate: 75 P: 11 [place]: 166 QRS: 30 QRSD: 148 T: 17 QT: 425 QTc: 476 Interpretive Statements SINUS RHYTHM RIGHT BUNDLE BRANCH BLOCK ABNORMAL ECG Electronically Signed On 03-06-2020 13:42:06 AZURE ARCHITECT by Mathew Landon D.O.
--- NOTE | 2020-03-06 13:13 | ED.FALL ---
HPI - Fall General Chief Complaint: Fall Stated Complaint: fall Time Seen by Provider: 03/06/20 12:17 Source: patient Mode of arrival: ambulatory Limitations: no limitations History of Present Illness HPI Narrative: This patient is a 59 year old male with history of multiple medical problems including chronic anticoagulation who presents for evaluation s/p fall. He states he was walking when he twisted his left ankle on the curb. This caused him to fall onto his right know. He is not sure if he hit his head but she reports dizziness, neck pain. He also reports left shoulder pain. He has been able to ambulate after having this fall. Related Data Home Medications Medication Instructions Recorded Confirmed Trulicity 1.5 mg SUBCUT WEEKLY 01/24/19 01/09/20 Xarelto 2.5 mg PO BID 01/24/19 01/09/20 amlodipine 10 mg PO DAILY 01/24/19 01/09/20 bupropion HCl 150 mg PO BID 01/24/19 01/09/20 doxazosin 2 mg PO HS 01/24/19 01/09/20 losartan 100 mg PO HS 01/24/19 01/09/20 metformin 1,000 mg PO BID 01/24/19 01/09/20 ciclopirox 8 % topical solution 1 applic TOPICAL DAILY PRN 04/13/19 01/09/20 omeprazole 40 mg capsule,delayed 40 mg PO DAILY 04/13/19 01/09/20 release potassium chloride 20 mEq 20 meq PO DAILY 04/13/19 01/09/20 tablet,extended release carvedilol [Coreg] 25 mg PO BID 04/28/19 01/09/20 Combivent Respimat 2 puff INHALATION PRN PRN 05/16/19 01/09/20 atorvastatin 80 mg PO HS 05/16/19 01/09/20 albuterol sulfate [Ventolin HFA] INHALATION 01/09/20 budesonide-formoterol [Symbicort] INHALATION 01/09/20 isosorbide mononitrate 60 mg PO DAILY 01/09/20 01/09/20 Allergies Allergy/AdvReac Type Severity Reaction Status Date / Time No Known Allergies Allergy Unknown Verified 03/06/20 12:17 Review of Systems Review of Systems: All systems reviewed & are unremarkable except as noted in HPI and below Constitutional: Constitutional: Denies chills and Denies fever(s) Cardiovascular: Cardiovascular: Denies chest pain Gastrointestinal: Gastrointestinal: Denies abdominal pain Neurologic: Denies numbness PMFSH Past Medical History Medical History Anxiety Arthritis BMI greater than 40 CAD (coronary artery disease) CHF (congestive heart failure) Constipation COPD (chronic obstructive pulmonary disease) CVA (cerebral vascular accident) With mild left-sided weakness. Depression Diabetes mellitus Type 2 diabetes. Diarrhea Dizziness Eczema Fracture of fifth toe, right, closed GERD (gastroesophageal reflux disease) GI bleed Headache Hearing loss History of blood clots History of gastric ulcer HLD (hyperlipidemia) Hoarseness HTN (hypertension) Kidney stones Left knee pain Medial meniscus tear Myocardial infarction Nausea and vomiting TAMIR on CPAP Peripheral neuropathy Pneumonia Psoriasis PVD (peripheral vascular disease) Rectal polyp Seasonal allergies Shortness of breath Sleep apnea Sleep disorder Stomach pain TIA (transient ischemic attack) Type 2 diabetes mellitus UTI (urinary tract infection) Vertigo Vision abnormalities Weight gain Surgical History Surgical History H/O heart artery stent 2 H/O lithotripsy History of cardiac catheterization 2 stents History of loop recorder History of rectal polypectomy Hx of cholecystectomy Hx of tonsillectomy Family History Family History Mother Diabetes mellitus Kidney stones Father Acute myocardial infarction Kidney stones Heart disease Sibling Heart disease Other Arthritis Hypertension Social History Social History Social History: The patient is and has no children. Rena Yousif is his durable power bankruptcy attorney for healthcare with whom he lives as a roommate. He is a full code. He does smoke 3
[2020-03-06 13:22] LABS: Basophils Percent Auto 0.1 % (0.2-1.2); Eosinophils Absolute Auto 0.1 K/mm3 (0-0.3); Eosinophils Percent Auto 1.9 % (0-4.4); Hematocrit 41.3 % (42.0-52.0); Hemoglobin 14.3 g/dL (14.0-18.0); Immature Granulocyte Absolute 0.01 K/mm3 (0.00-0.031); Immature Granulocyte Percent A 0.1 % (0-0.5); Immature Platelet Fraction Pct 8.2 % (0.9-11.2); Lymphocytes Absolute Auto 1.22 K/mm3 (0.9-3.2); Lymphocytes Percent Auto 18.2 % (18.3-44.2); Mean Corpuscular HGB Conc 34.6 g/dl (32-36); Mean Corpuscular Hemoglobin 30.8 pg (26-34); Mean Corpuscular Volume 88.8 fl (80-100); Mean Platelet Volume 11.2 fl (7.4-10.4); Monocytes Absolute Auto 0.6 K/mm3 (0.1-0.6); Monocytes Percent Auto 8.5 % (2.6-8.5); Neutrophils Absolute Auto 4.8 K/mm3 (1.3-6.7); Neutrophils Percent Auto 71.2 % (45.5-73.1); Platelet Count Result 139 k/mm3 (150-375); Red Blood Count 4.65 M/mm3 (4.6-6.20); Red Cell Distribution Width 12.9 % (11.5-14.5); White Blood Count 6.7 K/mm3 (4.5-10.0)
[2020-03-06 13:34] LABS: Alanine Aminotransferase 41 U/L (4-50); Albumin Level 4.3 g/dL (3.5-5.1); Alkaline Phosphatase 68 U/L (38-126); Anion Gap 10 mmol/L (8-16); Aspartate Amino Transferase 39 U/L (17-59); Bilirubin,Total 0.6 mg/dL (0.2-1.3); Blood Urea Nitrogen 15 mg/dL (9-20); Calcium 9.3 mg/dL (8.4-10.2); Carbon Dioxide 27 mmol/L (22-30); Chloride 100 mmol/L (98-107); Estimated CRCL calculation 116 ml/min; Estimated Glomerular Filt Rate > 60; Glucose 153 mg/dL (75-110); Potassium 4.2 mmol/L (3.4-5.0); Sodium 137 mmol/L (137-145)
[2020-03-06 13:40] LABS: INR 1.1; Partial Thromboplastin Time 29.9 SECONDS (22.3-36.8); Prothrombin Time 14.3 Seconds (11.1-14.7)
[2020-03-06 13:59] VITALS: BP 150/84; PULSE 78; RESP 20; TEMP 36.3; O2SAT 96
== END 2020-03-06 13:56 | disposition home or self-care (01) ==
PROVIDERS: Emergency Provider General Practice; PCP Registered Nurse
DX: S93.402A Sprain of unspecified ligament of left ankle, initial encounter (principal); S80.211A Abrasion, right knee, initial encounter; M54.2 Cervicalgia; R42 Dizziness and giddiness; Z79.01 Long term (current) use of anticoagulants; M19.90 Unspecified osteoarthritis, unspecified site; I45.10 Unspecified right bundle-branch block; F41.9 Anxiety disorder, unspecified; I25.10 Atherosclerotic heart disease of native coronary artery without angina pectoris; I11.0 Hypertensive heart disease with heart failure; I50.9 Heart failure, unspecified; K21.9 Gastro-esophageal reflux disease without esophagitis; E78.5 Hyperlipidemia, unspecified; Z87.442 Personal history of urinary calculi; I25.2 Old myocardial infarction; G47.30 Sleep apnea, unspecified; E11.9 Type 2 diabetes mellitus without complications; Z79.84 Long term (current) use of oral hypoglycemic drugs; W01.0XXA Fall on same level from slipping, tripping and stumbling without subsequent striking against object, initial encounter
CPT/HCPCS: 36415; 70450; 72125; 73000; 73564; 73610; 80053; 85025; 85055; 85610; 85730; 93005; 99284

== ENCOUNTER 2020-03-08 09:30 | Outpatient (RCR) | payer MEDICARE, MEDICAID, SELFPAY ==
[2020-03-08 09:42] VITALS: BMI 45.0
[2020-03-08 09:44] VITALS: BMI 45.0
== END 2020-04-03 13:19 | disposition home or self-care (01) ==
LOC: ANHDMC 09:30
PROVIDERS: PCP Registered Nurse; Visit Provider Registered Nurse
DX: E11.65 Type 2 diabetes mellitus with hyperglycemia (principal); Z71.89 Other specified counseling; Z71.3 Dietary counseling and surveillance
CPT/HCPCS: 97802; G0108

== ENCOUNTER 2020-03-15 15:24 | Observation (INO) | payer MEDICARE, MEDICAID, SELFPAY ==
[2020-03-15] VITALS (18 sets, daily range): BP systolic 95–130; BP diastolic 54–82; PULSE 74–83; RESP 14–24; TEMP 36.4; O2SAT 95–100; BMI 45.6
--- NOTE | ~2020-03-15 | CT_ITS ---
EXAMINATION: CTA brain carotid DATE: 03/15/2020 17:16 INDICATION: Dizziness. TECHNIQUE: Computed tomographic angiography (CTA) of the head was performed without and with 100 mL O mnipaque-350 intravenous contrast. CTA of the neck was performed with intravenous contrast. Automated exposure control and iterative reconstruction technique were employed. The dose-length product was 1 849.33 mGy-cm. Maximum intensity projection and volume rendered 3D-reconstructions were created by addis sarabia technologist on a separate workstation. COMPARISON: Head CT 03/06/2020, CTA 11/30/2019 FINDINGS: HEAD CTA: There is cystic encephalomalacia in the right frontoparietal periventricular white matter. There are scattered areas of low attenuation in the cerebral white matter, which is within normal cooper its for the patient's age. There is no intracranial hemorrhage, acute infarction, or abnormal intracr anial mass lesion. The ventricles are normal in size. There is mild mucosal thickening in the paranas al sinuses. The orbits are normal. The mastoid air cells are normal. The vertebral arteries are codom inant. There is no significant stenosis of basilar artery or the posterior cerebral arteries. There i s no significant stenosis of the intracranial internal carotid arteries or anterior or middle cerebra l arteries. The posterior communicating arteries are normal. There is no aneurysm. NECK CTA: There are no pathologically enlarged lymph nodes. There is no significant stenosis of the v ertebral arteries. There is mild plaque in proximal right internal carotid artery. There is 0% stenos is of the proximal right internal carotid artery relative to normal distal artery lumen diameter (KENDALL CET criteria). There is 0% stenosis of the proximal left internal carotid artery relative to normal d istal artery lumen diameter. There is severe cervical spondylosis. IMPRESSION: 1. Chronic encephalomalacia in the right frontoparietal periventricular white matter. 2. No aneurysm or significant intracranial arterial stenosis. 3. 0% stenosis of the proximal internal carotid arteries relative to normal distal artery lumen diame ters (NASCET criteria). Reviewed, dictated and finalized at location A. ER CLOCK AND WATCH HANDS IMPRESSION: 1. Chronic encephalomalacia in the right frontoparietal periventricular white m atter. 2. No aneurysm or significant intracranial arterial stenosis. 3. 0% stenosis of the proximal internal carotid arteries relative to normal dis fei artery lumen diameters (NASCET criteria).
--- NOTE | 2020-03-15 16:08 | ED.DIZZY ---
HPI - Dizziness General Chief Complaint: Dizziness <DIDI Morfin - Last Filed: 03/15/20 21:24> Stated Complaint: lightheaded/dizzy <DIDI Morfin - Last Filed: 03/15/20 21:24> Time Seen by Provider: 03/15/20 15:58 <DIDI Morfin - Last Filed: 03/15/20 21:24> Source: patient <DIDI Morfin - Last Filed: 03/15/20 21:24> Mode of arrival: ambulatory <DIDI Morfin - Last Filed: 03/15/20 21:24> Limitations: no limitations <DIDI Morfin - Last Filed: 03/15/20 21:24> History of Present Illness HPI Narrative: Patient is a 59-year-old male who presents complaining of dizziness and lightheadedness starting around noon today. He reports mild nausea. He reports tingling to bilateral upper and lower extremities. He reports baseline slight left-sided weakness. He has slight left facial droop from prior CVA. He reports a history of CVA x2 in 2013 and multiple TIAs. He denies chest pain, shortness of breath or other complaints at this time. He denies pain at this time. <DIDI Morfin - Last Filed: 03/15/20 21:24> MD elicited complaint: dizziness and lightheadedness <DIDI Morfin - Last Filed: 03/15/20 21:24> Related Data Home Medications: Home Medications Medication Instructions Recorded Confirmed Trulicity 1.5 mg SUBCUT WEEKLY 01/24/19 01/09/20 Xarelto 2.5 mg PO BID 01/24/19 01/09/20 amlodipine 10 mg PO DAILY 01/24/19 01/09/20 bupropion HCl 150 mg PO BID 01/24/19 01/09/20 doxazosin 2 mg PO HS 01/24/19 01/09/20 losartan 100 mg PO HS 01/24/19 01/09/20 metformin 1,000 mg PO BID 01/24/19 01/09/20 ciclopirox 8 % topical solution 1 applic TOPICAL DAILY PRN 04/13/19 01/09/20 omeprazole 40 mg capsule,delayed 40 mg PO DAILY 04/13/19 01/09/20 release potassium chloride 20 mEq 20 meq PO DAILY 04/13/19 01/09/20 tablet,extended release carvedilol [Coreg] 25 mg PO BID 04/28/19 01/09/20 Combivent Respimat 2 puff INHALATION PRN PRN 05/16/19 01/09/20 atorvastatin 80 mg PO HS 05/16/19 01/09/20 albuterol sulfate [Ventolin HFA] INHALATION 01/09/20 budesonide-formoterol [Symbicort] INHALATION 01/09/20 isosorbide mononitrate 60 mg PO DAILY 01/09/20 01/09/20 <DIDI Morfin - Last Filed: 03/15/20 21:24> Allergies/Adverse Reactions: Allergies Allergy/AdvReac Type Severity Reaction Status Date / Time No Known Allergies Allergy Unknown Verified 03/15/20 15:24 <DIDI Morfin - Last Filed: 03/15/20 21:24> Review of Systems Review of Systems: Narrative: CONSTITUTIONAL: Denies fever, chills, or sweats. EYES: Denies visual changes, redness, or discharge. ENT: Denies rhinorrhea, congestion, sore throat, or otalgia. CARDIOVASCULAR: Denies chest pain, palpitations, or edema. RESPIRATORY: Denies cough or dyspnea. GASTROINTESTINAL: Reports mild nausea, denies vomiting GENITOURINARY: Denies dysuria or hematuria. SKIN: Denies rash or itching. MUSCULOSKELETAL: Denies back pain, joint pain, or myalgia. NEUROLOGIC: Denies headache or numbness, reports dizziness, lightheadedness and weakness. PSYCHIATRIC: Denies anxiety or depression. <DIDI Morfin - Last Filed: 03/15/20 21:24> PMF Past Medical History Medical History: Medical History Anxiety Arthritis BMI greater than 40 CAD (coronary artery disease) CHF (congestive heart failure) Constipation COPD (chronic obstructive pulmonary disease) CVA (cerebral vascular accident) With mild left-sided weakness. Depression Diabetes mellitus Type 2 diabetes. Diarrhea Dizziness Eczema Fracture of fifth toe, right, closed GERD (gastroesophageal reflux disease) GI bleed Headache Hearing loss History of blood clots History of gastric ulcer HLD (hyperlipidemia) Hoarseness HTN (hypertension) Kidney stones Left knee pain Medial meniscus tear Myocardial infarction Nausea and vomiting TAMIR on CPAP
[2020-03-15 16:29] LABS: Basophils Percent Auto 0.3 % (0.2-1.2); Eosinophils Absolute Auto 0.2 K/mm3 (0-0.3); Eosinophils Percent Auto 1.7 % (0-4.4); Hematocrit 40.3 % (42.0-52.0); Immature Granulocyte Absolute 0.02 K/mm3 (0.00-0.031); Immature Granulocyte Percent A 0.2 % (0-0.5); Lymphocytes Absolute Auto 1.46 K/mm3 (0.9-3.2); Lymphocytes Percent Auto 16.8 % (18.3-44.2); Mean Corpuscular HGB Conc 34.7 g/dl (32-36); Mean Corpuscular Volume 89.2 fl (80-100); Mean Platelet Volume 11.7 fl (7.4-10.4); Monocytes Absolute Auto 0.8 K/mm3 (0.1-0.6); Monocytes Percent Auto 8.6 % (2.6-8.5); Neutrophils Absolute Auto 6.3 K/mm3 (1.3-6.7); Neutrophils Percent Auto 72.4 % (45.5-73.1); Platelet Count Result 160 k/mm3 (150-375); Red Blood Count 4.52 M/mm3 (4.6-6.20); Red Cell Distribution Width 13.4 % (11.5-14.5); White Blood Count 8.7 K/mm3 (4.5-10.0)
[2020-03-15 16:41] LABS: Alanine Aminotransferase 60 U/L (4-50); Albumin Level 4.2 g/dL (3.5-5.1); Alkaline Phosphatase 61 U/L (38-126); Anion Gap 9 mmol/L (8-16); Aspartate Amino Transferase 64 U/L (17-59); Bilirubin,Total 0.6 mg/dL (0.2-1.3); Blood Urea Nitrogen 19 mg/dL (9-20); Calcium 9.1 mg/dL (8.4-10.2); Carbon Dioxide 24 mmol/L (22-30); Chloride 104 mmol/L (98-107); Estimated CRCL calculation 96 ml/min; Estimated Glomerular Filt Rate > 60; Glucose 165 mg/dL (75-110); Potassium 4.8 mmol/L (3.4-5.0); Sodium 137 mmol/L (137-145)
[2020-03-15 16:53] LABS: Troponin I < 0.012 ng/mL (0.000-0.034)
[2020-03-15 17:00] LABS: INR 1.1; Prothrombin Time 14.5 Seconds (11.1-14.7)
[2020-03-15 17:01] LABS: Partial Thromboplastin Time 33.7 SECONDS (22.3-36.8)
--- NOTE | 2020-03-15 17:32 | ECG_ITS ---
Measurements Intervals [place] Rate: 80 P: 55 DC: 152 QRS: 21 QRSD: 143 T: 28 QT: 394 QTc: 454 Interpretive Statements SINUS RHYTHM RIGHT BUNDLE BRANCH BLOCK BASELINE ARTIFACT- AVF, V3 ABNORMAL ECG Electronically Signed On 03-15-2020 19:16:49 BUS MECHANIC by Mathew Landon D.O.
[2020-03-15] MEDS: ONDANSETRON INJ 4 MG/2 ML VIAL IV PUSH (18:22)
[2020-03-15] MEDS: SODIUM CHLORIDE 0.9% IV 500 ML 999 ML IV CONT (18:22)
[2020-03-15 19:21] LABS: Add Urine Microscopic? YES; Appearance Urine Clear (Clear); Bilirubin Urine Negative (Negative); Blood Urine Negative (Negative); Color Urine Yellow (Yellow); Glucose Urine UA Negative (Negative); Ketones Urine Negative (Negative); Leukocyte Esterase Ur Negative LEU/UL (Negative); Mucus Urine Few /lpf; Nitrate Urine Negative (Negative); Protein Urine 1+ mg/dL (Negative); RBC Urine 0-2 /hpf (0-2); Squamous Epithelial Cell Urine Rare /hpf (Few); Urobilinogen Urine Negative mg/dL (<2.0); WBC Urine 0-3 /hpf
[2020-03-15 19:26] LABS: Specific Grav Ur 1.058 (1.001-1.035)
--- NOTE | 2020-03-15 20:44 | PM.IMHP ---
H&P: HPI History of Present Illness Date/Time: 03/15/20 20:44 Chief Complaint: Dizziness Narrative: This is a 59 year old morbidly obese Diabetic male with known history of previous CVA w/ residual mild left side weakness, CAD+ s/p 2 stents, HTN, Hyperlipidemia, CHF among other comorbidities who presented to the hospital [facility] after his PCP referred him. The patient started to experience dizziness and lightheadedness today around 12:00 pm. He was on his feet walking around. Associated symptoms included tingling of both upper extremities, nausea, and vomiting. The patient has had ongoing neurological symptoms and reports that he had similar dizziness a few days ago after he had a low dose Chest CT screening exam done. He noticed that his symptoms started after his CT scan when he got up to go home. On arrival to his house he laid down and took a nap which alleviated his symptoms. He also reports that he passed out this past Thursday. Apparently he was in the kitchen and walking around when he suddenly passed out. He doesn't know if he suffered any head trauma at that time. Tonight he denies any fever, chills, headache, ear ringing, ear pain, blurry vision, double vision, cough, shortness of breath, seizure like activity, chest pain, palpitations, abdominal pain, dysuria, hematuria, diarrhea,rectal bleeding, or focal weakness. CTA Brain was obtained in the ER tonight which was unremarkable for any acute pathology. Routine labs were virtually unremarkable. ER provider has consulted Neurology, Dr. Henning who has asked that we admit the patient to the hospital so he can evaluate the in the morning. Review of Systems Review of Systems: All systems reviewed & are unremarkable except as noted in HPI and below PMFSH Past Medical History Medical History Anxiety Arthritis BMI greater than 40 CAD (coronary artery disease) CHF (congestive heart failure) Constipation COPD (chronic obstructive pulmonary disease) CVA (cerebral vascular accident) With mild left-sided weakness. Depression Diabetes mellitus Type 2 diabetes. Diarrhea Dizziness Eczema Fracture of fifth toe, right, closed GERD (gastroesophageal reflux disease) GI bleed Headache Hearing loss History of blood clots History of gastric ulcer HLD (hyperlipidemia) Hoarseness HTN (hypertension) Kidney stones Left knee pain Medial meniscus tear Myocardial infarction Nausea and vomiting TAMIR on CPAP Peripheral neuropathy Pneumonia Psoriasis PVD (peripheral vascular disease) Rectal polyp Seasonal allergies Shortness of breath Sleep apnea Sleep disorder Stomach pain TIA (transient ischemic attack) Type 2 diabetes mellitus UTI (urinary tract infection) Vertigo Vision abnormalities Weight gain Surgical History Surgical History H/O heart artery stent 2 H/O lithotripsy History of cardiac catheterization 2 stents History of loop recorder History of rectal polypectomy Hx of cholecystectomy Hx of tonsillectomy Family History Family History Mother Diabetes mellitus Kidney stones Father Acute myocardial infarction Kidney stones Heart disease Sibling Heart disease Other Arthritis Hypertension Social History Social History Social History: The patient is and has no children. Rena Dodd is his durable power immigration attorney for healthcare with whom he lives as a roommate. He is a full code. He does smoke 3 cigarettes per day currently. No current alcohol use. Smoking packs per day: 0.5 Smoking cigarettes per day: 10.0 Years smoked: 40 Smoking pack-years: 20.00 Smoking status: Current every day smoker Tobacco type: cigarettes Second hand tobacco smoke exposure: Yes Additional smoking assessment comments: 3 cigarettes a d
[2020-03-15 21:39] LABS: Magnesium 1.6 mg/dL (1.6-2.3)
[2020-03-15 21:52] LABS: Troponin I < 0.012 ng/mL (0.000-0.034)
[2020-03-15] MEDS: SODIUM CHLORIDE 0.9% IV 1,000 ML 100 ML IV CONT (22:37)
--- NOTE | 2020-03-15 23:33 | PC.NURSE ---
This patient, Vini Zambrano, was admitted to Medical Room 241-01. Patient/family oriented to hospital policies and general routines including ID bracelet, bed and alarms, visiting hours, pain management, procedures, bathroom and other care routines, personal items, smoking policy, room service/diet, and visiting hours. Information on how to activate the Rapid Response Team has been discussed. Patient/Family are encouraged to report perceived risks to care and to ask questions if they do not understand what they are told or what they should do.
[2020-03-15 23:43] LABS: Troponin I < 0.012 ng/mL (0.000-0.034)
[2020-03-16] VITALS (12 sets, daily range): BP systolic 127–136; BP diastolic 59–78; PULSE 77–88; RESP 16–20; TEMP 36.1–36.8; O2SAT 93–100
--- NOTE | 2020-03-16 | ECHO_ITS ---
Patient Info Name: Vini Zambrano Age: 59 years : 1960 Gender: Male Ht: 72 in Wt: 336 lbs BSA: 2.86 m2 HR: 78 bpm BP: 134 / 69 mmHg Heart Rhythm: Sinus Rhythm Technical Quality: Good Exam Date: 03/16/2020 12:47 PM Exam Location: [facility] Pulmonary Patient Status: Inpatient Admit Date: 03/15/2020 Staff Ordering Physician: Iam Enriquez M.A., MD Die Engraving Supervisor: Carlos Madera, RYLEY, RT Attending Provider: Jaron Reyes MD Referring Physician: Temo DICK; Exam Type: CA echo dop color flow w con Study Info Indications R55 - Syncope and collapse Complete two-dimensional, color flow and Doppler transthoracic echocardiogram is performed with contrast to opacify the left ventricle and to improve the deliniation of the left ventricle endocardial borders. Summary 1. Definity contrast used to improve visualization. 2. Left ventricular chamber dimension is normal. 3. Left ventricular systolic function is normal, estimated at 65-70%. 4. There is mild aortic valve sclerosis. 5. There is no aortic valve stenosis. Left Ventricle Left ventricular chamber dimension is normal. Left ventricular systolic function is normal, estimated at 65-70%. The left ventricular diastolic function is grade I diastolic dysfunction. Definity contrast used to improve visualization. Right Ventricle Right ventricular chamber dimension is normal. Left Atria Left atrial chamber dimension is normal. Right Atria Right atrial chamber dimension is normal. Aortic Valve The aortic valve is trileaflet. There is mild aortic valve sclerosis. There is no aortic valve stenosis. Pulmonic Valve The pulmonic valve is not well visualized. Mitral Valve The mitral valve has normal leaflets. Tricuspid Valve The tricuspid valve leaflets are normal. Pericardium/Pleural The pericardium appears normal. Aorta The aortic root size at the sinus of Valsalva is normal. Left Ventricular Outflow Tract Name Value Normal LVOT 2D LVOT Diameter 1.89 cm LVOT Doppler LVOT Peak Gradient 5 mmHg LVOT Mean Gradient 2 mmHg LVOT VTI 21.65 cm LVOT VTI/AV VTI Ratio 1.03 LVOT Stroke Volume 60.90 ml LVOT CO 4.64 l/min LVOT CI 1.62 L/min/m2 Mitral Valve Name Value Normal MV Doppler MV Decel [place] 246.92 cm/s2 MV PHT 0 s MV Area (PHT) 2.83 cm2 4.00-5.00 MV Diastolic Function MV E Peak Velocity 66.09 cm/s MV A Peak Velocity 79.79 cm/s MV E/A
[2020-03-16] MEDS: DOXAZOSIN MESYLATE 2 MG TABLET PO (03:33)
[2020-03-16] MEDS: LOSARTAN POTASSIUM 100 MG TABLET PO (03:33)
[2020-03-16] MEDS: ATORVASTATIN 40 MG TABLET 80 MG PO (03:33)
[2020-03-16 05:56] LABS: Basophils Percent Auto 0.3 % (0.2-1.2); Eosinophils Absolute Auto 0.2 K/mm3 (0-0.3); Hematocrit 38.2 % (42.0-52.0); Hemoglobin 12.8 g/dL (14.0-18.0); Immature Granulocyte Absolute 0.02 K/mm3 (0.00-0.031); Immature Granulocyte Percent A 0.3 % (0-0.5); Lymphocytes Percent Auto 18.7 % (18.3-44.2); Mean Corpuscular HGB Conc 33.5 g/dl (32-36); Mean Corpuscular Hemoglobin 30.6 pg (26-34); Mean Corpuscular Volume 91.4 fl (80-100); Mean Platelet Volume 11.5 fl (7.4-10.4); Monocytes Absolute Auto 0.6 K/mm3 (0.1-0.6); Monocytes Percent Auto 8.6 % (2.6-8.5); Neutrophils Absolute Auto 5.3 K/mm3 (1.3-6.7); Neutrophils Percent Auto 70.1 % (45.5-73.1); Platelet Count Result 122 k/mm3 (150-375); Red Blood Count 4.18 M/mm3 (4.6-6.20); Red Cell Distribution Width 13.4 % (11.5-14.5); White Blood Count 7.5 K/mm3 (4.5-10.0)
[2020-03-16 06:06] LABS: Anion Gap 4 mmol/L (8-16); Blood Urea Nitrogen 18 mg/dL (9-20); Calcium 8.4 mg/dL (8.4-10.2); Carbon Dioxide 25 mmol/L (22-30); Chloride 107 mmol/L (98-107); Estimated CRCL calculation 106 ml/min; Estimated Glomerular Filt Rate > 60; Glucose 197 mg/dL (75-110); Sodium 136 mmol/L (137-145)
[2020-03-16 08:00] LABS: Glucose Point of Care 165 (65-105)
[2020-03-16] MEDS: metFORMIN HCL 500 MG TABLET 1000 MG PO (08:03)
[2020-03-16] MEDS: carvediloL 25 MG TABLET PO (08:03)
[2020-03-16] MEDS: ASPIRIN 81 MG CHEWABLE TABLET PO (08:03)
[2020-03-16] MEDS: FUROSEMIDE 40 MG TABLET PO (08:04)
[2020-03-16] MEDS: ISOSORBIDE MONONITRATE 30 MG TAB.ER.24H PO (08:04)
[2020-03-16] MEDS: PANTOPRAZOLE 40 MG TABLET PO (08:04)
[2020-03-16] MEDS: ISOSORBIDE MONONITRATE 60 MG TAB.ER.24H PO (08:04)
[2020-03-16] MEDS: RIVAROXABAN 2.5 MG TABLET PO (08:04)
[2020-03-16] MEDS: amLODIPine BESYLATE 5 MG TABLET 10 MG PO (08:04)
[2020-03-16] MEDS: SODIUM CHLORIDE 0.9% IV 1,000 ML 100 ML IV CONT (08:08)
--- NOTE | 2020-03-16 10:06 | PM.DS ---
DS: Admitting Diagnosis Admitting Diagnosis Admitting Diagnosis: Syncope DS: Discharge Diagnosis Discharge Diagnosis (1) Dizziness: Code(s): R42 - Dizziness and giddiness Status: Acute Assessment and Plan: Most likely related to dehydration and orthostatic hypotension patient had left bundle branch block on ECG 9 changes from EKG before follow-up with cardiology as outpatient follow-up on the results of the echo neurology was consulted (2) Syncope: Qualifiers: Syncope type: unspecified Qualified Code(s): R55 - Syncope and collapse Code(s): R55 - Syncope and collapse Status: Acute Assessment and Plan: Most likely related to orthostatic hypotension CT scan is negative for acute stroke (3) Diabetes mellitus: Qualifiers: Diabetes mellitus type: type 2 Diabetes mellitus half-way insulin use: with terminal block assembler use Diabetes mellitus complication status: with hyperglycemia Qualified Code(s): E11.65 - Type 2 diabetes mellitus with hyperglycemia; Z79.4 - 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 (current) use of insulin Code(s): E11.9 - Type 2 diabetes mellitus without complications Status: Chronic Assessment and Plan: Continue all medication (4) HTN (hypertension): Qualifiers: Hypertension type: essential hypertension Qualified Code(s): I10 - Essential (primary) hypertension Code(s): I10 - Essential (primary) hypertension Status: Chronic Assessment and Plan: Continue home medical (5) HLD (hyperlipidemia): Qualifiers: Hyperlipidemia type: unspecified Qualified Code(s): E78.5 - Hyperlipidemia, unspecified Code(s): E78.5 - Hyperlipidemia, unspecified Status: Chronic Assessment and Plan: Stable (6) Chronic anticoagulation: Code(s): Z79.01 - prison (current) use of anticoagulants Status: Chronic Assessment and Plan: Continue home treatment (7) COPD (chronic obstructive pulmonary disease): Qualifiers: COPD type: unspecified COPD Qualified Code(s): J44.9 - Chronic obstructive pulmonary disease, unspecified Code(s): J44.9 - Chronic obstructive pulmonary disease, unspecified Status: Chronic Assessment and Plan: Stable follow-up with PCP DS: Summary Hospital Course Hospital Course: Patient was admitted to the hospital with syncopal episode most likely related to orthostatic hypotension and dehydration patient was given IV fluid dizziness has resolved patient did not have any episodes of syncope in the hospital neurology was consulted also recommend to follow-up with cardiology as outpatient patient has history of abnormal EKG in the past follow-up on the results of the echo follow-up with cardiology as outpatient Time Spent with Patient Time attestation: Total time spent providing and/or coordinating discharge services: 25 minutes Exam Narrative: Exam Narrative: Alert Chest no wheeze crackles Abdomen nontender nondistended CVS S1 + S2 Lower extremity edema Neurology move all extremities no sensory loss or motor loss no cranial nerve anomaly DS: Data Data Completed and Pending Labs on day of discharge: Labs from last 24 hours 03/16/20 03/16/20 03/16/20 07:58 05:09 05:09 WBC 7.5 RBC 4.18 L Hgb 12.8 L Hct 38.2 L MCV 91.4 MCH 30.6 MCHC 33.5 RDW 13.4 Plt Count 122 L MPV 11.5 H Immature Gran % (Auto) 0.3 Neut % (Auto) 70.1 Lymph % (Auto) 18.7 [place] % (Auto) 8.6 H Eos % (Auto) 2.0 Baso % (Auto) 0.3 Lymph # (Auto) 1.40 [place] # (Auto) 0.6 Eos # (Auto) 0.2 Baso # (Auto) 0.0 Abs Immat Gran (auto) 0.02 Absolute Neuts (auto) 5.3 Absolute Nucleated RBC 0.0 Nucleated RBC % 0.0 % Immature Plt Fraction 7.0 PT INR APTT Sodium 136 L Potassium 4.0 Chloride 107 Carbon Dioxide 25 Anion Gap 4 L BUN 18 Creatinine 1.00 Estim Creat Clear Calc 106 Jessica
--- NOTE | 2020-03-16 11:05 | WPDNEURCNPN ---
Assessment and Plan Assessment and plan (1) Autonomic dysfunction with type 2 diabetes mellitus: Code(s): E11.43 - Type 2 diabetes mellitus with diabetic autonomic (poly)neuropathy Status: Acute Additional Plan 59 years old with recurrent dizziness in addition to the ongoing history of diabetes mellitus, most likely related to orthostatic symptomatology with underlying neuropathy and autonomic neuropathy, will benefit from the instruction regarding the up and down position and waiting in the bed or chair. I have also suggested the nurse to document the orthostatic pressure here in addition in the long run if the significant drop is noted very frequently we will use the midodrine, have also advised the patient accordingly Consult date: 03/16/20 Time Seen: 11:00 HPI: Vini Zambrano is a 59 year old male Admitted to the hospital for the complaints of dizziness while on his feet walking around in addition to the tingling sensation of both upper extremities along with nausea and vomiting. Patient has had the similar symptoms in the past maybe only few days ago janessa had the CT scan done but when he went back and laid down at home he fell better at 1 time was walking around the kitchen and suddenly he gave no history of any seizure-like activity or any other generalized symptomatology. He does have ongoing history of 1. Diabetes mellitus 2. Cerebrovascular accident with residual left hemiparesis 3. Coronary artery disease with history of 2 stents placement 4. Hypertension 5. Hyperlipidemia 6. Congestive heart failure. Pertinent investigations include CTA of the head and neck with documentation of chronic encephalomalacia in the right frontoparietal periventricular white matter, no aneurysm or significant intracranial arterial disease and 0% stenosis of the proximal internal carotid arteries hemoglobin of 12.8 with platelet count 122 and WBC 7.5, normal electrolytes with BUN of 18, glucose of 97 the B12 and D levels are pending so as the folate level Review of Systems Review of Systems: All systems reviewed & are unremarkable except as noted in HPI and below PMFSH Past Medical History Medical History Anxiety Arthritis BMI greater than 40 CAD (coronary artery disease) CHF (congestive heart failure) Constipation COPD (chronic obstructive pulmonary disease) CVA (cerebral vascular accident) With mild left-sided weakness. Depression Diabetes mellitus Type 2 diabetes. Diarrhea Dizziness Eczema Fracture of fifth toe, right, closed GERD (gastroesophageal reflux disease) GI bleed Headache Hearing loss History of blood clots History of gastric ulcer HLD (hyperlipidemia) Hoarseness HTN (hypertension) Kidney stones Left knee pain Medial meniscus tear Myocardial infarction Nausea and vomiting TAMIR on CPAP Peripheral neuropathy Pneumonia Psoriasis PVD (peripheral vascular disease) Rectal polyp Seasonal allergies Shortness of breath Sleep apnea Sleep disorder Stomach pain TIA (transient ischemic attack) Type 2 diabetes mellitus UTI (urinary tract infection) Vertigo Vision abnormalities Weight gain Surgical History Surgical History H/O heart artery stent 2 H/O lithotripsy History of cardiac catheterization 2 stents History of loop recorder History of rectal polypectomy Hx of cholecystectomy Hx of tonsillectomy Family History Family History Mother Diabetes mellitus Kidney stones Father Acute myocardial infarction Kidney stones Heart disease Sibling Heart disease Other Arthritis Hypertension Social History Social History Social History: The patient is and has no children. Rena Dodd is his durable power privacy attorney for healthcare with whom he lives as a roommate. He is a f
[2020-03-16 11:33] LABS: Vitamin D 25 Hydroxy 26.2 ng/mL
[2020-03-16 12:04] LABS: Folic Acid 9.9 ng/mL (2.76->20)
[2020-03-16 12:25] LABS: Glucose Point of Care 160 (65-105)
[2020-03-16] MEDS: PERFLUTREN LIPID MICROSPHERES 1.5 ML VIAL DILUTED TO 10 ML TOTAL VOLUME IV PUSH (13:13)
== END 2020-03-16 15:18 | disposition home or self-care (01) ==
LOC: ANHED 21:02 → ANH2MED 22:48
PROVIDERS: Admitting Provider Family Medicine; Emergency Provider Nurse Practitioner; PCP Registered Nurse; Visit Provider Internal Medicine
DX: R42 Dizziness and giddiness (principal); E11.65 Type 2 diabetes mellitus with hyperglycemia; E11.42 Type 2 diabetes mellitus with diabetic polyneuropathy; I11.0 Hypertensive heart disease with heart failure; I50.9 Heart failure, unspecified; E78.5 Hyperlipidemia, unspecified; J44.9 Chronic obstructive pulmonary disease, unspecified; Z79.01 Long term (current) use of anticoagulants; Z79.4 Long term (current) use of insulin
CPT/HCPCS: 36415; 70496; 70498; 80048; 80053; 81001; 82306; 82607; 82746; 83735; 84484; 85025; 85055; 85610; 85730; 93005; 93306; 96361; 96374; 96375; 99285; A9270; C8929; G0378; J2405; J7030; J7040; Q9957; Q9967

== ENCOUNTER 2020-04-19 14:40 | Emergency (ER) | payer MEDICARE, MEDICAID, SELFPAY ==
--- NOTE | ~2020-04-19 | XR_ITS ---
XR lumbar spine 2-3V DATE: 04/19/2020 15:21 INDICATION: Fall on ice today. Lower back pain radiating to right lower extremity TECHNIQUE: AP, lateral, coned lateral lumbosacral views COMPARISON: None FINDINGS: Diffuse idiopathic hyperostosis of the lower thoracic spine. Normal alignment of the lumbar spine. There is moderate moderate degenerative spurring of the lumbar spine but the lumbar and upper sacral interspaces are relatively well preserved. No fracture or bone destruction or spondylolisthesis. The lumbar pedicles are intact. The sacroiliac joints are normal. Surgical clips, right upper quadrant, probably due to cholecystectomy. Aortic calcification. IMPRESSION: Diffuse idiopathic skeletal hyperostosis of the thoracic spine No fracture or spondylolisthesis of the lumbar spine Reviewed, dictated and finalized at location B. WAGON DRIVER
[2020-04-19 14:48] VITALS: BP 124/80; PULSE 83; RESP 18; TEMP 36.4; O2SAT 100
[2020-04-19] MEDS: ONDANSETRON HCL ODT 4 MG TABLET PO (16:36)
[2020-04-19] MEDS: KETOROLAC (*BKC) 60 MG/2 ML VIAL IM (16:36)
--- NOTE | 2020-04-19 16:36 | ED.BACK ---
HPI - Back Pain/Injury General Chief Complaint: Back Pain/Injury Stated Complaint: Fall- back pain Time Seen by Provider: 04/19/20 14:56 History of Present Illness HPI Narrative: Patient is a 60-year-old male who presents to the ER with low back pain near the low lumbar/sacral region. Reports he was walking when he slipped and fell onto his buttock. Occurred just prior to arrival. He has been able to ambulate since then. No referred pain. Did not strike his head or lose consciousness. Related Data Home Medications Medication Instructions Recorded Confirmed Trulicity 1.5 mg SUBCUT WEEKLY 01/24/19 04/05/20 Xarelto 2.5 mg PO BID 01/24/19 04/05/20 amlodipine 10 mg PO DAILY 01/24/19 04/05/20 bupropion HCl [Wellbutrin SR] 150 mg PO BID 01/24/19 04/05/20 doxazosin [Cardura] 2 mg PO HS 01/24/19 04/05/20 losartan [Cozaar] 100 mg PO HS 01/24/19 04/05/20 metformin 1,000 mg PO BID 01/24/19 04/05/20 omeprazole 40 mg capsule,delayed 40 mg PO DAILY 04/13/19 04/05/20 release potassium chloride 20 mEq 20 meq PO DAILY 04/13/19 04/05/20 tablet,extended release carvedilol [Coreg] 25 mg PO BID 04/28/19 04/05/20 atorvastatin 80 mg PO HS 05/16/19 04/05/20 albuterol sulfate [Ventolin HFA] 1 puff INHALATION Q4-6H PRN 01/09/20 04/05/20 budesonide-formoterol [Symbicort] 1 puff INHALATION BID 01/09/20 04/05/20 isosorbide mononitrate 60 mg PO DAILY 01/09/20 04/05/20 isosorbide mononitrate 30 mg PO DAILY 03/15/20 04/05/20 loratadine [Claritin] 10 mg PO DAILY PRN MDD 2 03/15/20 04/05/20 oxybutynin chloride 5 mg PO BID PRN MDD 2 03/15/20 04/05/20 furosemide [Lasix] 40 mg PO DAILY 04/05/20 04/05/20 Allergies Allergy/AdvReac Type Severity Reaction Status Date / Time No Known Allergies Allergy Unknown Verified 04/19/20 14:51 Review of Systems Musculoskeletal: Musculoskeletal: Reports back pain, Denies arthralgias and Denies muscle cramps Neurologic: Denies focal weakness and Denies numbness [facility] Past Medical History Medical History Anxiety Arthritis BMI greater than 40 CAD (coronary artery disease) CHF (congestive heart failure) Constipation COPD (chronic obstructive pulmonary disease) CVA (cerebral vascular accident) With mild left-sided weakness. Depression Diabetes mellitus Type 2 diabetes. Diarrhea Dizziness Eczema Fracture of fifth toe, right, closed GERD (gastroesophageal reflux disease) GI bleed Headache Hearing loss History of blood clots History of gastric ulcer HLD (hyperlipidemia) Hoarseness HTN (hypertension) Kidney stones Left knee pain Medial meniscus tear Myocardial infarction Nausea and vomiting TAMIR on CPAP Peripheral neuropathy Pneumonia Psoriasis PVD (peripheral vascular disease) Rectal polyp Seasonal allergies Shortness of breath Sleep apnea Sleep disorder Stomach pain TIA (transient ischemic attack) Type 2 diabetes mellitus UTI (urinary tract infection) Vertigo Vision abnormalities Weight gain Surgical History Surgical History H/O heart artery stent 2 H/O lithotripsy History of cardiac catheterization 2 stents History of loop recorder History of rectal polypectomy Hx of cholecystectomy Hx of tonsillectomy Family History Family History Mother Diabetes mellitus Kidney stones Father Acute myocardial infarction Kidney stones Heart disease Sibling Heart disease Other Arthritis Hypertension Social History Social History Social History: The patient is and has no children. Rena Dodd is his durable power commercial attorney for healthcare with whom he lives as a roommate. He is a full code. He does smoke 3 cigarettes per day currently. No current alcohol use. Smoking packs per day: 1 Smoking cigarettes per day: 20.0 Years smoked: 40 Smoking
[2020-04-19 17:31] VITALS: BP 118/62; PULSE 84; RESP 18; O2SAT 97
== END 2020-04-19 17:33 | disposition home or self-care (01) ==
PROVIDERS: Emergency Provider Emergency Medicine; PCP Registered Nurse
DX: S39.012A Strain of muscle, fascia and tendon of lower back, initial encounter (principal); F41.9 Anxiety disorder, unspecified; M19.90 Unspecified osteoarthritis, unspecified site; I25.10 Atherosclerotic heart disease of native coronary artery without angina pectoris; I11.0 Hypertensive heart disease with heart failure; I50.9 Heart failure, unspecified; J44.9 Chronic obstructive pulmonary disease, unspecified; F32.9 Major depressive disorder, single episode, unspecified; E11.9 Type 2 diabetes mellitus without complications; K21.9 Gastro-esophageal reflux disease without esophagitis; E78.5 Hyperlipidemia, unspecified; W01.0XXA Fall on same level from slipping, tripping and stumbling without subsequent striking against object, initial encounter
CPT/HCPCS: 72100; 96372; 99283; A9270; J1885

== ENCOUNTER 2020-04-27 15:55 | Emergency (ER) | payer MEDICARE, MEDICAID, SELFPAY ==
--- NOTE | ~2020-04-27 | XR_ITS ---
EXAMINATION: XR chest 2V DATE: 04/27/2020 16:49 INDICATION: Dizziness. Shortness of breath. Left upper chest pain. TECHNIQUE: Frontal and lateral views of the chest were obtained. COMPARISON: Chest single view 12/25/2019, CT abdomen and pelvis 01/02/2020 FINDINGS: There is mild atelectasis at the lung bases. No pleural effusion or pneumothorax. There is prominent extrapleural fat on the left. The heart size is normal. There is an electronic implant in l eft anterior chest wall. IMPRESSION: 1. Mild atelectasis at the lung bases. Reviewed, dictated and finalized at location A. ANIZER RUBBER PLATE
[2020-04-27 16:03] VITALS: BP 119/90; PULSE 77; RESP 18; TEMP 36.7; O2SAT 97
--- NOTE | 2020-04-27 16:07 | ECG_ITS ---
Measurements Intervals Holmen Rate: 76 P: 11 IN: 156 QRS: 22 QRSD: 150 T: 42 QT: 410 QTc: 463 Interpretive Statements SINUS RHYTHM RIGHT BUNDLE BRANCH BLOCK CONSIDER INFERIOR INFARCT, AGE INDETERMINATE ABNORMAL ECG Electronically Signed On 04-27-2020 21:09:20 KILN PUSHER by Mathew Landon D.O.
--- NOTE | 2020-04-27 16:25 | ED.DIZZY ---
HPI - Dizziness General Chief Complaint: Syncope Stated Complaint: Dizzy, CP, nausea, light-headed Time Seen by Provider: 04/27/20 16:09 Source: patient Mode of arrival: EMS Limitations: no limitations History of Present Illness HPI Narrative: This is a 60-year-old male that presents to the emergency department for an episode of presyncope at dentist office. Reports they were making impressions of his mouth. Reports a dentist had sprayed a numbing medication in the back of his throat. Reports he started to feel lightheaded and nauseous. He also felt like he was having trouble breathing and had a dull ache in his chest. All symptoms have now resolved. He reports feeling a little tired now. Denies vision changes, vomiting, numbness, or weakness. Related Data Home Medications Medication Instructions Recorded Confirmed Trulicity 1.5 mg SUBCUT WEEKLY 01/24/19 04/05/20 Xarelto 2.5 mg PO BID 01/24/19 04/05/20 amlodipine 10 mg PO DAILY 01/24/19 04/05/20 bupropion HCl [Wellbutrin SR] 150 mg PO BID 01/24/19 04/05/20 doxazosin [Cardura] 2 mg PO HS 01/24/19 04/05/20 losartan [Cozaar] 100 mg PO HS 01/24/19 04/05/20 metformin 1,000 mg PO BID 01/24/19 04/05/20 omeprazole 40 mg capsule,delayed 40 mg PO DAILY 04/13/19 04/05/20 release potassium chloride 20 mEq 20 meq PO DAILY 04/13/19 04/05/20 tablet,extended release carvedilol [Coreg] 25 mg PO BID 04/28/19 04/05/20 atorvastatin 80 mg PO HS 05/16/19 04/05/20 albuterol sulfate [Ventolin HFA] 1 puff INHALATION Q4-6H PRN 01/09/20 04/05/20 budesonide-formoterol [Symbicort] 1 puff INHALATION BID 01/09/20 04/05/20 isosorbide mononitrate 60 mg PO DAILY 01/09/20 04/05/20 isosorbide mononitrate 30 mg PO DAILY 03/15/20 04/05/20 loratadine [Claritin] 10 mg PO DAILY PRN MDD 2 03/15/20 04/05/20 oxybutynin chloride 5 mg PO BID PRN MDD 2 03/15/20 04/05/20 furosemide [Lasix] 40 mg PO DAILY 04/05/20 04/05/20 Allergies Allergy/AdvReac Type Severity Reaction Status Date / Time No Known Allergies Allergy Unknown Verified 04/19/20 14:51 Review of Systems Review of Systems: Narrative: CONSTITUTIONAL: Denies fever EYES: Denies visual changes CARDIOVASCULAR: Reports chest pain. Denies edema. RESPIRATORY: Reports dyspnea. GASTROINTESTINAL: Reports nausea. Denies vomiting All systems reviewed & are unremarkable except as noted in HPI and below PMFSH Past Medical History Medical History Anxiety Arthritis BMI greater than 40 CAD (coronary artery disease) CHF (congestive heart failure) Constipation COPD (chronic obstructive pulmonary disease) CVA (cerebral vascular accident) With mild left-sided weakness. Depression Diabetes mellitus Type 2 diabetes. Diarrhea Dizziness Eczema Fracture of fifth toe, right, closed GERD (gastroesophageal reflux disease) GI bleed Headache Hearing loss History of blood clots History of gastric ulcer HLD (hyperlipidemia) Hoarseness HTN (hypertension) Kidney stones Left knee pain Medial meniscus tear Myocardial infarction Nausea and vomiting TAMIR on CPAP Peripheral neuropathy Pneumonia Psoriasis PVD (peripheral vascular disease) Rectal polyp Seasonal allergies Shortness of breath Sleep apnea Sleep disorder Stomach pain TIA (transient ischemic attack) Type 2 diabetes mellitus UTI (urinary tract infection) Vertigo Vision abnormalities Weight gain Surgical History Surgical History H/O heart artery stent 2 H/O lithotripsy History of cardiac catheterization 2 stents History of loop recorder History of rectal polypectomy Hx of cholecystectomy Hx of tonsillectomy Family History Family History Mother Diabetes mellitus Kidney stones Father Acute myocardial infarction Kidney stones Heart disease Sibling Heart disease Other Arthritis Hypertension Social History
[2020-04-27] MEDS: ONDANSETRON INJ 4 MG/2 ML VIAL IV PUSH (16:54)
[2020-04-27 17:16] LABS: Basophils Percent Auto 0.2 % (0.2-1.2); Eosinophils Absolute Auto 0.2 K/mm3 (0-0.3); Eosinophils Percent Auto 1.8 % (0-4.4); Hematocrit 40.4 % (42.0-52.0); Hemoglobin 13.7 g/dL (14.0-18.0); Immature Granulocyte Absolute 0.04 K/mm3 (0.00-0.031); Immature Granulocyte Percent A 0.4 % (0-0.5); Lymphocytes Absolute Auto 1.08 K/mm3 (0.9-3.2); Lymphocytes Percent Auto 9.9 % (18.3-44.2); Mean Corpuscular HGB Conc 33.9 g/dl (32-36); Mean Corpuscular Hemoglobin 30.7 pg (26-34); Mean Corpuscular Volume 90.6 fl (80-100); Mean Platelet Volume 11.3 fl (7.4-10.4); Monocytes Absolute Auto 0.9 K/mm3 (0.1-0.6); Monocytes Percent Auto 7.9 % (2.6-8.5); Neutrophils Absolute Auto 8.7 K/mm3 (1.3-6.7); Neutrophils Percent Auto 79.8 % (45.5-73.1); Platelet Count Result 142 k/mm3 (150-375); Red Blood Count 4.46 M/mm3 (4.6-6.20); Red Cell Distribution Width 13.5 % (11.5-14.5); White Blood Count 10.9 K/mm3 (4.5-10.0)
[2020-04-27 17:30] LABS: Alanine Aminotransferase 46 U/L (4-50); Albumin Level 4.2 g/dL (3.5-5.1); Alkaline Phosphatase 65 U/L (38-126); Anion Gap 9 mmol/L (8-16); Aspartate Amino Transferase 42 U/L (17-59); Bilirubin,Total 0.7 mg/dL (0.2-1.3); Blood Urea Nitrogen 19 mg/dL (9-20); Calcium 9.1 mg/dL (8.4-10.2); Carbon Dioxide 25 mmol/L (22-30); Chloride 104 mmol/L (98-107); Estimated CRCL calculation 88 ml/min; Estimated Glomerular Filt Rate > 60; Glucose 157 mg/dL (75-110); Lipase 152 U/L (23-300); Potassium 4.6 mmol/L (3.4-5.0); Sodium 138 mmol/L (137-145)
[2020-04-27 17:31] LABS: INR 1.1; Prothrombin Time 14.6 Seconds (11.1-14.7)
[2020-04-27 17:32] LABS: Partial Thromboplastin Time 30.2 SECONDS (22.3-36.8)
[2020-04-27 17:42] LABS: Troponin I < 0.012 ng/mL (0.000-0.034)
[2020-04-27 18:13] VITALS: BP 104/60; PULSE 71
[2020-04-27 18:15] VITALS: BP 101/64; PULSE 80
[2020-04-27 18:18] VITALS: BP 105/65; PULSE 80
[2020-04-27 18:57] VITALS: BP 107/65; PULSE 74; RESP 18; O2SAT 99
== END 2020-04-27 18:59 | disposition home or self-care (01) ==
PROVIDERS: Emergency Medicine; Physician Assistant; Emergency Provider Emergency Medicine; PCP Registered Nurse
DX: R55 Syncope and collapse (principal); I25.10 Atherosclerotic heart disease of native coronary artery without angina pectoris; I50.9 Heart failure, unspecified; I11.0 Hypertensive heart disease with heart failure; I69.954 Hemiplegia and hemiparesis following unspecified cerebrovascular disease affecting left non-dominant side; K21.9 Gastro-esophageal reflux disease without esophagitis; E78.5 Hyperlipidemia, unspecified; I25.2 Old myocardial infarction; G47.33 Obstructive sleep apnea (adult) (pediatric); E11.42 Type 2 diabetes mellitus with diabetic polyneuropathy; E11.51 Type 2 diabetes mellitus with diabetic peripheral angiopathy without gangrene; M19.90 Unspecified osteoarthritis, unspecified site; F32.9 Major depressive disorder, single episode, unspecified; F41.9 Anxiety disorder, unspecified; Z87.440 Personal history of urinary (tract) infections; Z87.442 Personal history of urinary calculi; Z87.19 Personal history of other diseases of the digestive system; I45.10 Unspecified right bundle-branch block; Z95.5 Presence of coronary angioplasty implant and graft; F17.210 Nicotine dependence, cigarettes, uncomplicated
CPT/HCPCS: 36415; 71046; 80048; 80076; 83690; 84484; 85025; 85610; 85730; 93005; 96374; 99284; J2405

== ENCOUNTER 2020-05-02 12:44 | Outpatient (CLI) | payer MEDICARE, MEDICAID, SELFPAY ==
--- NOTE | ~2020-05-02 | XR_ITS ---
EXAMINATION: XR abdomen/kub 1V EXAM DATE: 05/02/2020 13:02 INDICATION: Left kidney stone follow-up. TECHNIQUE: Frontal projection of the upper abdomen, frontal projection lower abdomen/pelvis for inter pretation. Comparison is made to prior examination from 02/02/2020. FINDINGS: Left double-J ureteral stent has been removed. There is expected amount of colonic stool and gas. No small bowel dilation, nonobstructive bowel gas pattern. There are no suspicious calci fications identified. There is no organomegaly suspected. There are mild bony degenerative changes . There are cholecystectomy clips. IMPRESSION: Unremarkable abdomen x-ray exam. Reviewed, dictated and finalized at location A. INE COMPOSITOR
== END 2020-05-02 12:45 | disposition home or self-care (01) ==
LOC: ANHIMG 12:48
PROVIDERS: PCP Registered Nurse; Visit Provider Urology
DX: N20.0 Calculus of kidney (principal)
CPT/HCPCS: 74018

== ENCOUNTER 2020-06-07 09:30 | Outpatient (RCR) | payer MEDICARE, MEDICAID, SELFPAY ==
--- NOTE | 2020-05-11 09:00 | PTOPEVAL ---
PHYSICAL THERAPY EVALUATION AND PLAN OF CARE 05-11-20 Thank you for referring Vini Zambrano to [facility], for the diagnosis of DISH and back pain. Vini is scheduled to be seen for therapy? 2 x/week for 3 weeks. The treatment plan includes aquatic therapy, for the buoyancy effects of the water, and ease of movement, with progression of therapeutic exercises to land activities. Please review, sign, date and return this plan of care GISSELLE. I agree with and certify that the following plan of care is medically necessary. Referring Physician Date Attending Provider: Sandi Alfaro NP PT Outpatient Evaluation Document 05/11/20 08:00 DALTON (Rec: 05/11/20 09:00 DALTON [id number]) Outpatient Past Medical History Past Medical History Source of Past Medical History Recalled from Previous Visit, Confirmed with Patient/Family Neurological History Hx Cerebrovascular Accident (CVA) Yes: x2- L side weakness Hx Transient Ischemic Attacks (TIA) Yes Cardiovascular History Hx Cardiac Catheterization Yes Hx Congestive Heart Failure Yes Hx Coronary Artery Bypass Graft Yes: x 2 Hx Coronary Artery Disease Yes Hx Hypercholesterolemia Yes Hx Hypertension Yes Hx Myocardial Infarction Yes Hx Peripheral Vascular Disease Yes Respiratory History Hx Pneumonia Yes Hx Sleep Apnea Yes: CPAP Gastrointestinal History Hx Cholecystectomy Yes Hx Gastroesophageal Reflux Disease Yes Hx Gastrointestinal Bleed Yes Hx Polyps Yes Hx Ulcer Yes Genitourinary History Hx Kidney Stones Yes Hx Urinary Tract Infection Yes Musculoskeletal History Hx Arthritis Yes: hands, elbows,knees Hx Fractures Yes: toe fracture Hematological History Hx Hematological Disorders No Significant History Endocrine History Hx Diabetes Yes: Type 2 HEENT History Hx HEENT Disorders No Significant History Integumentary History Hx Eczema Yes Hx Psoriasis Yes Reproductive History Hx Reproductive Disorders No Significant History Psychosocial History Hx Anxiety Yes Hx Depression Yes Hx Implanted Device Yes: Loop recorder- cardiac, monitor blood clots Hx Other Medical Conditions Yes: obesity Diagnosis DISH- diffuse idiopathic skeletal hyperostosis; back and leg pain Onset Apr Subjective Information fell when shoveling snow; Query Text:As Reported By Patient/ onset of back and leg pain; Family went to ER- had x rays, no
--- NOTE | 2020-06-07 09:57 | PTOPEVAL ---
PHYSICAL THERAPY DISCHARGE 06-07-20 Refer to the clinical summary below for his status at today's session, compared to the initial evaluation. The goals were achieved; therefore, he will be discharged from PT at this time. Thank you for referring Vini Zambrano to [facility].? Please review, sign, date and return this Discharge GISSELLE. I agree with and certify that the following plan of care is medically necessary. 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 Pain Assessment Timing of Pain Assessment Timing of Pain Assessment Assessment Pain Scale Pain Scale Used Numeric (1 - 10) Self Report Pain Assessment Bilateral Back Reported Pain Level 0 Pain Frequency Chronic,Intermittent Lowest Pain Intensity 0 Greatest Pain Intensity 0 Pain Score Pain Score 0: Self Report Additional Pain Score Comments no pain for the past week; Interventions Used Interventions Used By Clinicians Education Lower Extremity Range of Motion General Lower Extremity Range of Motion Gross Lower Extremity Range of Motion supine hamstring length with Comments SLR R 65'/ L 55'- no pain in back Lower Extremity Muscle Strength Testing General Lower Extremity Strength Gross Lower Extremity Strength side lying hip abduction: R 15 / L x 15 reps Gait Assessment Gait Assessment Ambulation Assistive Devices None Ambulation Distance 900 Query Text:(Feet) Ambulation Destination In Gym Ambulation Direction Forward Ambulation Ability Independent Cues Needed For Ambulation None Additional Ambulation Comments walking tolerance testing to 900', stop due to report of SOB and legs little tired; good step length and gait pattern
== END 2020-06-07 10:17 | disposition home or self-care (01) ==
LOC: ANHPT 09:30
PROVIDERS: PCP Registered Nurse; Visit Provider Registered Nurse
DX: M48.10 Ankylosing hyperostosis [Forestier], site unspecified (principal)
CPT/HCPCS: 97110; 97113; 97161

== ENCOUNTER 2020-08-19 13:30 | Emergency (ER) | payer MEDICARE, MEDICAID, SELFPAY ==
--- NOTE | ~2020-08-19 | CT_ITS ---
EXAMINATION: CT abdomen pelvis wo con DATE: 08/19/2020 16:39 INDICATION: Left flank pain. History of kidney stones. TECHNIQUE: Computed tomography (CT) of the abdomen and pelvis was performed without intravenous contr ast. Automated exposure control and iterative reconstruction technique were employed. Exam dose: 133 8.57 mGy-cm total exam DLP. COMPARISON: 01/02/[address] abdomen pelvis 08/29/2017 CT abdomen pelvis FINDINGS: There is minimal atelectasis at the lung bases. Coronary artery calcification. No pericardial or pleural effusion. Status post cholecystectomy. No hepatic, splenic, pancreatic space-occupying mass lesion. No bile wendy t or pancreatic duct dilatation. Bilateral adrenal myolipoma is, larger on the left. 2 cm right renal cyst. 5 mm nonobstructing left renal calculus. No ureteral calculus or hydroureteronephrosis is noted on ei ther side. The urinary bladder is unremarkable. Prostate enlargement and calcification. Normal caliber of the abdominal aorta. No intraperitoneal or retroperitoneal or pelvic mass lesion or adenopathy or ascites. Normal appendix. Mild colonic diverticulosis; no CT evidence of diverticulitis. No bowel obstruction, bowel wall thick ening, pneumatosis or intraperitoneal free air. Small fat-containing right inguinal hernia. Very small fat-containing umbilical hernia. Diffuse idiopathic skeletal hyperostosis of the thoracic spine. Moderate degenerative disease at L1-2 and mild degenerative disc disease at the remaining lumbar and lumbosacral interspaces. No suspicious osteolytic lesions are noted. 1.3 cm osteosclerotic lesion of the left femoral head and 6 mm osteosclerotic lesion of left femoral neck. 7 mm sclerotic lesion of the right femoral neck. These are likely bone islands, although osteosclerot ic prostate metastases are not definitively excluded. IMPRESSION: No ureteral calculus or hydroureteronephrosis 5 mm nonobstructing left renal calculus 2 cm right renal cyst Bilateral adrenal myelolipoma is Status post cholecystectomy Mild colonic diverticulosis; no CT evidence of diverticulitis Several sclerotic lesions of the proximal femurs; bone islands versus osteosclerotic prostate metasta ses Reviewed, dictated and finalized at [facility]. Reviewed, dictated and finalized at [facility]. IMPRESSION: No ureteral calculus or hydroureteronephrosis 5 mm nonobstructing left renal calculus 2 cm right renal cyst Bilateral adrenal myelolipoma is Status post cholecystectomy Mild colonic diverticulosis; no CT evidence of diverticulitis Several sclerotic lesions of the proximal femurs; bone islands versus osteoscle rotic prostate metastases
--- NOTE | ~2020-08-19 | XR_ITS ---
XR abdomen/kub 1V DATE: 08/19/2020 16:42 INDICATION: Left flank pain. History kidney stones. TECHNIQUE: AP projection, 2 views COMPARISON: 08/19/[address] abdomen pelvis FINDINGS: No urinary tract calcification is detected. Surgical clips, right upper quadrant, consistent with cholecystectomy. No evidence of bowel obstruction. The psoas shadows are intact. No visceromegaly is evident. Diffuse idiopathic skeletal hyperostosis of the thoracic spine and degenerative disease of the lumbar spine. Transitional lumbosacral vertebra sacralization and pseudoarthrosis on the left. IMPRESSION: Nonspecific abdomen Reviewed, dictated and finalized at [facility]. Reviewed, dictated and finalized at [facility]. IMPRESSION: Nonspecific abdomen
[2020-08-19 13:49] VITALS: BP 113/63; PULSE 84; RESP 17; TEMP 36.5; O2SAT 96
[2020-08-19 14:11] LABS: Basophils Percent Auto 0.1 % (0.2-1.2); Eosinophils Absolute Auto 0.1 K/mm3 (0-0.3); Eosinophils Percent Auto 1.6 % (0-4.4); Hemoglobin 13.7 g/dL (14.0-18.0); Immature Granulocyte Absolute 0.01 K/mm3 (0.00-0.031); Immature Granulocyte Percent A 0.1 % (0-0.5); Lymphocytes Absolute Auto 1.18 K/mm3 (0.9-3.2); Lymphocytes Percent Auto 16.9 % (18.3-44.2); Mean Corpuscular HGB Conc 33.4 g/dl (32-36); Mean Corpuscular Hemoglobin 30.2 pg (26-34); Mean Corpuscular Volume 90.5 fl (80-100); Mean Platelet Volume 11.2 fl (7.4-10.4); Monocytes Absolute Auto 0.6 K/mm3 (0.1-0.6); Monocytes Percent Auto 8.6 % (2.6-8.5); Neutrophils Absolute Auto 5.1 K/mm3 (1.3-6.7); Neutrophils Percent Auto 72.7 % (45.5-73.1); Platelet Count Result 153 k/mm3 (150-375); Red Blood Count 4.53 M/mm3 (4.6-6.20); Red Cell Distribution Width 13.6 % (11.5-14.5)
[2020-08-19 14:21] LABS: Anion Gap 12 mmol/L (8-16); Blood Urea Nitrogen 13 mg/dL (9-20); Calcium 9.2 mg/dL (8.4-10.2); Carbon Dioxide 22 mmol/L (22-30); Chloride 106 mmol/L (98-107); Estimated CRCL calculation 102 ml/min; Estimated Glomerular Filt Rate > 60; Glucose 169 mg/dL (75-110); Potassium 4.3 mmol/L (3.4-5.0); Sodium 140 mmol/L (137-145)
[2020-08-19 15:29] VITALS: BP 128/65; PULSE 81; RESP 20; O2SAT 96
[2020-08-19 15:42] LABS: Add Urine Microscopic? YES; Appearance Urine Clear (Clear); Bacteria Urine Trace /hpf; Bilirubin Urine Negative (Negative); Blood Urine Negative (Negative); Color Urine Yellow (Yellow); Glucose Urine UA Negative (Negative); Ketones Urine Negative (Negative); Leukocyte Esterase Ur Negative LEU/UL (Negative); Mucus Urine Few /lpf; Nitrate Urine Negative (Negative); Protein Urine 1+ mg/dL (Negative); Specific Grav Ur 1.019 (1.001-1.035); Urobilinogen Urine Negative mg/dL (<2.0); WBC Urine 0-3 /hpf
[2020-08-19] MEDS: ONDANSETRON INJ 4 MG/2 ML VIAL IV PUSH (16:29)
[2020-08-19] MEDS: KETOROLAC 15 MG/ML VIAL (*BKC) IV PUSH (16:30)
--- NOTE | 2020-08-19 17:15 | ED.ABDPAIN ---
HPI - Abdominal Pain General Chief Complaint: Abdominal Pain Stated Complaint: kidney stone Time Seen by Provider: 08/19/20 15:31 Source: patient Mode of arrival: ambulatory Limitations: no limitations History of Present Illness HPI narrative: 60-year-old male Presents complaining of left-sided flank and abdominal pain that started this afternoon around 1 PM He has little nausea with it No vomiting, no hematuria, no dysuria, no diarrhea He has had a history of many kidney stones in the past and has had procedures to remove them with here although none very recently Symptoms today are very reminiscent of what he is previously experienced Related Data Home Medications Medication Instructions Recorded Confirmed Trulicity 1.5 mg SUBCUT WEEKLY 01/24/19 08/19/20 Xarelto 2.5 mg PO BID 01/24/19 08/19/20 amlodipine 10 mg PO DAILY 01/24/19 08/19/20 bupropion HCl [Wellbutrin SR] 150 mg PO BID 01/24/19 08/19/20 doxazosin [Cardura] 2 mg PO HS 01/24/19 08/19/20 losartan [Cozaar] 100 mg PO HS 01/24/19 08/19/20 metformin 1,000 mg PO BID 01/24/19 08/19/20 omeprazole 40 mg capsule,delayed 40 mg PO DAILY 04/13/19 08/19/20 release potassium chloride 20 mEq 20 meq PO DAILY 04/13/19 08/19/20 tablet,extended release carvedilol [Coreg] 25 mg PO BID 04/28/19 08/19/20 atorvastatin 80 mg PO HS 05/16/19 08/19/20 albuterol sulfate [Ventolin HFA] 1 puff INHALATION Q4-6H PRN 01/09/20 08/19/20 budesonide-formoterol [Symbicort] 1 puff INHALATION BID 01/09/20 08/19/20 isosorbide mononitrate 60 mg PO DAILY 01/09/20 08/19/20 isosorbide mononitrate 30 mg PO DAILY 03/15/20 08/19/20 loratadine [Claritin] 10 mg PO DAILY PRN MDD 2 03/15/20 08/19/20 oxybutynin chloride 5 mg PO BID PRN MDD 2 03/15/20 08/19/20 furosemide [Lasix] 20 mg PO DAILY 04/05/20 08/19/20 Allergies Allergy/AdvReac Type Severity Reaction Status Date / Time No Known Allergies Allergy Unknown Verified 08/19/20 15:29 Review of Systems Review of Systems: All systems reviewed & are unremarkable except as noted in HPI and below Constitutional: Constitutional: Reports no additional constitutional complaints, Denies chills, Denies fever(s) and Denies headache(s) Eyes: Eyes: Reports no additional eye complaints and Denies change in vision ENT: Denies headache(s) and Denies sore throat Cardiovascular: Cardiovascular: Denies chest pain and Denies dyspnea Respiratory: Respiratory: Denies cough and Denies dyspnea Gastrointestinal: Gastrointestinal: Reports abdominal pain, Denies diarrhea, Reports nausea and Denies vomiting Genitourinary: Genitourinary: Denies dysuria and Denies urinary frequency Comments: Flank pain Musculoskeletal: Musculoskeletal: Denies deformity, Denies arthralgias, Denies joint swelling and Denies numbness Integumentary/Breasts: Skin/Breast: Denies rash and Denies wounds Neurologic: Denies headache(s), Denies focal weakness and Denies numbness Psychiatric: Psychiatric: Reports no additional psychiatric complaints Endocrine: Endocrine: Reports no additional endocrine complaints Hematologic/Lymphatic: Hematologic/Lymphatic: Reports no additional hematologic/lymphatic complaints Allergic/Immunologic: Allergic/Immunologic: Reports no additional allergic/immunologic complaints [facility] Past Medical History Medical History Anxiety Arthritis BMI greater than 40 CAD (coronary artery disease) CHF (congestive heart failure) Constipation COPD (chronic obstructive pulmonary disease) CVA (cerebral vascular accident) With mild left-sided weakness. Depression Diabetes mellitus Type 2 diabetes. Diarrhea Dizziness Eczema Fracture of fifth toe, right, closed GERD (gastroesophageal reflux disease) GI bleed Headache Hearing loss History of blood clots History of gastric ulcer HLD (hyperlipidemia) Hoarseness HTN (hypertension) Kidney stones Left knee pain Medial meniscus tear Myocardial infarction Naus
[2020-08-19 18:33] VITALS: PULSE 79; RESP 20; O2SAT 99
[2020-08-19 18:57] VITALS: BP 128/65; PULSE 80; RESP 20; O2SAT 99
== END 2020-08-19 18:59 | disposition home or self-care (01) ==
PROVIDERS: Emergency Medicine; Emergency Provider Emergency Medicine; PCP Registered Nurse
DX: N20.0 Calculus of kidney (principal); I25.10 Atherosclerotic heart disease of native coronary artery without angina pectoris; I50.9 Heart failure, unspecified; J44.9 Chronic obstructive pulmonary disease, unspecified; I69.954 Hemiplegia and hemiparesis following unspecified cerebrovascular disease affecting left non-dominant side; K21.9 Gastro-esophageal reflux disease without esophagitis; E78.5 Hyperlipidemia, unspecified; I11.0 Hypertensive heart disease with heart failure; I25.2 Old myocardial infarction; G47.33 Obstructive sleep apnea (adult) (pediatric); E11.42 Type 2 diabetes mellitus with diabetic polyneuropathy; E11.51 Type 2 diabetes mellitus with diabetic peripheral angiopathy without gangrene; Z87.442 Personal history of urinary calculi; Z87.19 Personal history of other diseases of the digestive system; Z87.440 Personal history of urinary (tract) infections; Z79.01 Long term (current) use of anticoagulants; Z79.84 Long term (current) use of oral hypoglycemic drugs; Z79.899 Other long term (current) drug therapy; N28.1 Cyst of kidney, acquired; M89.9 Disorder of bone, unspecified; F17.210 Nicotine dependence, cigarettes, uncomplicated
CPT/HCPCS: 36415; 74018; 74176; 80048; 81001; 85025; 96374; 96375; 99284; J1885; J2405

== ENCOUNTER 2020-08-29 21:24 | Emergency (ER) | payer MEDICARE, MEDICAID, SELFPAY ==
--- NOTE | ~2020-08-29 | XR_ITS ---
EXAMINATION: XR abdomen/kub 1V EXAM DATE: 08/29/2020 22:07 INDICATION: Left flank pain. TECHNIQUE: Frontal projection(s) of the abdomen for interpretation. Correlation is made to CT abdomen pelvis 08/19/2020. FINDINGS: There is expected amount of colonic stool and gas. No small bowel dilation, nonobstructiv e bowel gas pattern. There are no suspicious calcifications identified. There is no organomegaly suspected. The bones are unremarkable. There are cholecystectomy clips. IMPRESSION: Unremarkable abdomen x-ray exam. Reviewed, dictated and finalized at [facility].
--- NOTE | ~2020-08-29 | CT_ITS ---
EXAMINATION: CT abdomen pelvis wo con EXAM DATE: 08/29/2020 22:47 INDICATION: Left flank pain. History kidney stones. TECHNIQUE: Spiral CT of the abdomen and pelvis was performed without contrast. Axial, coronal and sag ittal images were reviewed. The dose-length product (DLP) for this examination was 1358.48 mGy-cm. The exposure was tailored according to patient size (auto mA exposure control), and iterative reconst ruction (ASIR) was used as additional dose reduction technique. Comparison is made to prior examinati on from 08/19/2020. FINDINGS: 3 mm left mid calyceal stone. No other genitourinary calcifications or hydronephrosis. Smal l right inguinal fat-containing hernia. The prostate is unremarkable. The bladder is unremarkable. There are bilateral macroscopic fat-containing masses consistent with angiomyelolipomas, larger on t he left up to 3.5 cm. There are cholecystectomy clips. There is no retroperitoneal or pelvic lympha denopathy. The appendix is normal. The stomach and small bowel are unremarkable. There is expected amount of c olonic stool. No free intraperitoneal gas. The heart is normal in size. There are no pericardial or pleural effusions. The lung bases are unremarkable. There are no osteoblastic or osteolytic les ions identified. If IMPRESSION: 1. Nonobstructing small left nephrolithiasis. 2. Bilateral angiomyelolipomas. Reviewed, dictated and finalized at [facility].
[2020-08-29 21:35] VITALS: BP 148/72; PULSE 83; RESP 18; TEMP 36.6; O2SAT 97
[2020-08-29 21:49] LABS: Basophils Percent Auto 0.3 % (0.2-1.2); Eosinophils Absolute Auto 0.2 K/mm3 (0-0.3); Eosinophils Percent Auto 2.2 % (0-4.4); Hemoglobin 13.3 g/dL (14.0-18.0); Immature Granulocyte Absolute 0.02 K/mm3 (0.00-0.031); Immature Granulocyte Percent A 0.3 % (0-0.5); Lymphocytes Absolute Auto 1.18 K/mm3 (0.9-3.2); Lymphocytes Percent Auto 17.6 % (18.3-44.2); Mean Corpuscular HGB Conc 33.3 g/dl (32-36); Mean Corpuscular Hemoglobin 30.1 pg (26-34); Mean Corpuscular Volume 90.5 fl (80-100); Monocytes Absolute Auto 0.5 K/mm3 (0.1-0.6); Monocytes Percent Auto 7.3 % (2.6-8.5); Neutrophils Absolute Auto 4.9 K/mm3 (1.3-6.7); Neutrophils Percent Auto 72.3 % (45.5-73.1); Platelet Count Result 132 k/mm3 (150-375); Red Blood Count 4.42 M/mm3 (4.6-6.20); Red Cell Distribution Width 13.4 % (11.5-14.5); White Blood Count 6.7 K/mm3 (4.5-10.0)
[2020-08-29 21:58] LABS: Alanine Aminotransferase 36 U/L (4-50); Albumin Level 4.3 g/dL (3.5-5.1); Alkaline Phosphatase 63 U/L (38-126); Anion Gap 11 mmol/L (8-16); Aspartate Amino Transferase 31 U/L (17-59); Bilirubin,Total 0.5 mg/dL (0.2-1.3); Blood Urea Nitrogen 14 mg/dL (9-20); Calcium 9.2 mg/dL (8.4-10.2); Carbon Dioxide 22 mmol/L (22-30); Chloride 105 mmol/L (98-107); Estimated CRCL calculation 64 ml/min; Estimated Glomerular Filt Rate > 60; Glucose 228 mg/dL (75-110); Lipase 243 U/L (23-300); Sodium 138 mmol/L (137-145)
--- NOTE | 2020-08-29 22:09 | ED.ABDPAIN ---
HPI - Abdominal Pain General Chief Complaint: Abdominal Pain Stated Complaint: kidney stone Time Seen by Provider: 08/29/20 21:56 Source: patient Mode of arrival: ambulatory Limitations: no limitations History of Present Illness HPI narrative: Patient is a 60-year-old male complaining of left flank pain, 8 out of 10, sharp, nonradiating started today. Patient states that he has a history of kidney stones. Patient denies any chest pain, shortness of breath, abdominal pain, nausea, vomiting, fever or chills. Related Data Home Medications Medication Instructions Recorded Confirmed Trulicity 1.5 mg SUBCUT WEEKLY 01/24/19 08/19/20 Xarelto 2.5 mg PO BID 01/24/19 08/19/20 amlodipine 10 mg PO DAILY 01/24/19 08/19/20 bupropion HCl [Wellbutrin SR] 150 mg PO BID 01/24/19 08/19/20 doxazosin [Cardura] 2 mg PO HS 01/24/19 08/19/20 losartan [Cozaar] 100 mg PO HS 01/24/19 08/19/20 metformin 1,000 mg PO BID 01/24/19 08/19/20 omeprazole 40 mg capsule,delayed 40 mg PO DAILY 04/13/19 08/19/20 release potassium chloride 20 mEq 20 meq PO DAILY 04/13/19 08/19/20 tablet,extended release carvedilol [Coreg] 25 mg PO BID 04/28/19 08/19/20 atorvastatin 80 mg PO HS 05/16/19 08/19/20 albuterol sulfate [Ventolin HFA] 1 puff INHALATION Q4-6H PRN 01/09/20 08/19/20 budesonide-formoterol [Symbicort] 1 puff INHALATION BID 01/09/20 08/19/20 isosorbide mononitrate 60 mg PO DAILY 01/09/20 08/19/20 isosorbide mononitrate 30 mg PO DAILY 03/15/20 08/19/20 loratadine [Claritin] 10 mg PO DAILY PRN MDD 2 03/15/20 08/19/20 oxybutynin chloride 5 mg PO BID PRN MDD 2 03/15/20 08/19/20 furosemide [Lasix] 20 mg PO DAILY 04/05/20 08/19/20 Allergies Allergy/AdvReac Type Severity Reaction Status Date / Time No Known Allergies Allergy Unknown Verified 08/19/20 15:29 Review of Systems Review of Systems: All systems reviewed & are unremarkable except as noted in HPI and below Constitutional: Constitutional: Denies body ache(s), Denies chills, Denies excessive sweating, Denies fatigue, Denies fever(s), Denies headache(s), Denies lethargy, Denies malaise, Denies weakness and Denies weight loss Eyes: Eyes: Denies blurry vision, Denies change in vision and Denies loss of vision ENT: Denies dizziness, Denies ear discharge, Denies headache(s), Denies lip swelling, Denies epistaxis, Denies nasal congestion, Denies neck pain, Denies throat swelling and Denies tongue swelling Cardiovascular: Cardiovascular: Denies chest pain, Denies chest pain at rest, Denies chest pain with activity, Denies diaphoresis, Denies rapid heart rate, Denies edema, Denies irregular heart rhythm, Denies lightheadedness, Denies palpitations, Denies dyspnea and Denies dyspnea on exertion Respiratory: Respiratory: Denies chest congestion, Denies cough, Denies hemoptysis, Denies dyspnea and Denies dyspnea on exertion Gastrointestinal: Gastrointestinal: Denies abdominal pain, Denies melena, Denies hematochezia, Denies diarrhea, Denies nausea, Denies vomiting and Denies hematemesis Musculoskeletal: Musculoskeletal: Denies abnormal gait, Denies deformity, Denies joint swelling, Denies limited range of motion, Denies neck pain and Denies numbness Neurologic: Denies Abnormal speech present, Denies abnormal gait, Denies confusion, Denies dizziness, Denies headache(s), Denies focal weakness, Denies loss of vision, Denies numbness, Denies Other visual disturbances, Denies Sensory deficit (Neuro) and Denies weakness Psychiatric: Psychiatric: Denies confusion, Denies depression, Denies auditory hallucinations, Denies homicidal ideation and Denies suicidal ideation Endocrine: Endocrine: Denies cold intolerance, Denies excessive sweating, Denies fatigue, Denies heat intolerance and Denies palpitations Hematologic/Lymphatic: Hematologic/Lymphatic: Denies easy bleeding and Denies easy bruising Allergic/Immunologic: Allergic/Immunologic: Denies lip swelling, Denies throat swelling and Denies tongue swelling PMFSH Past Medi
[2020-08-29 22:18] VITALS: BP 148/72; PULSE 83; RESP 18; TEMP 37.1; O2SAT 99
[2020-08-29 22:28] LABS: Add Urine Microscopic? YES; Appearance Urine Clear (Clear); Bilirubin Urine Negative (Negative); Blood Urine Negative (Negative); Color Urine Yellow (Yellow); Glucose Urine UA 1+ mg/dL (Negative); Ketones Urine Negative (Negative); Leukocyte Esterase Ur Negative LEU/UL (Negative); Mucus Urine Few /lpf; Nitrate Urine Negative (Negative); Protein Urine 1+ mg/dL (Negative); RBC Urine 0-2 /hpf (0-2); Specific Grav Ur 1.023 (1.001-1.035); Urobilinogen Urine Negative mg/dL (<2.0); WBC Urine 0-3 /hpf
[2020-08-29] MEDS: PROMETHAZINE HCL 25 MG/ML AMPUL 12.5 MG IV PUSH (23:09)
[2020-08-29] MEDS: HYDROmorphone HCL INJ (*CRX) 1 MG/ML SYR 0.5 MG IV PUSH (23:10)
[2020-08-30 00:25] VITALS: BP 144/69; PULSE 86; RESP 20; O2SAT 98
== END 2020-08-30 00:27 | disposition home or self-care (01) ==
PROVIDERS: Emergency Provider Emergency Medicine; PCP Registered Nurse
DX: N20.0 Calculus of kidney (principal); I25.10 Atherosclerotic heart disease of native coronary artery without angina pectoris; I11.0 Hypertensive heart disease with heart failure; I50.9 Heart failure, unspecified; J44.9 Chronic obstructive pulmonary disease, unspecified; E78.5 Hyperlipidemia, unspecified; F17.210 Nicotine dependence, cigarettes, uncomplicated; I25.2 Old myocardial infarction; Z86.73 Personal history of transient ischemic attack (TIA), and cerebral infarction without residual deficits; Z79.84 Long term (current) use of oral hypoglycemic drugs
CPT/HCPCS: 36415; 74018; 74176; 80053; 81001; 83690; 85025; 85055; 96374; 96375; 99284; J1170; J2550

== ENCOUNTER 2020-09-10 12:41 | Emergency (ER) | payer MEDICARE, MEDICAID, SELFPAY ==
[2020-09-10] VITALS (14 sets, daily range): BP systolic 105–144; BP diastolic 64–96; PULSE 76–84; RESP 16–27; TEMP 36.3–36.8; O2SAT 93–98
--- NOTE | ~2020-09-10 | XR_ITS ---
EXAMINATION: XR chest 1V portable EXAM DATE: 09/10/2020 17:45 INDICATION: Weakness, nausea, history stents. Diabetes. Smoking TECHNIQUE: Portable AP frontal chest x-ray was obtained. Comparison is made to prior examination from 04/27/2020. FINDINGS: Cardiac monitoring device. Linear left basilar subsegmental atelectasis. The lungs are othe rwise clear. There are no pleural effusions. The cardiomediastinal silhouette is within normal limi ts. There is no pneumothorax suspected. The bones and soft tissues are unremarkable. There is no significant interval change. IMPRESSION: Linear left basilar subsegmental atelectasis. Reviewed, dictated and finalized at [facility].
--- NOTE | ~2020-09-10 | CT_ITS ---
EXAMINATION: CT brain wo con DATE: 09/10/2020 17:35 INDICATION: Headache today TECHNIQUE: Computed tomography (CT) of the head was performed without intravenous contrast. The mA wa s adjusted according to patient size. Iterative reconstruction technique was employed. Exam dose: 68 1.00 mGy-cm total exam DLP. COMPARISON: 03/15/2020 CTA brain carotid 03/06/2020 CT brain FINDINGS: No intracranial mass lesion or hemorrhage or recent cerebrovascular accident is evident. There is a chronic focal area of diminished attenuation in the right periventricular area, likely due to old infarct. No midline shift or mass effects. No subdural or epidural hematoma is detected. Bilateral carotid siphon internal carotid artery calcifications. Nonspecific diminished attenuation o f the cerebral white matter is likely due to chronic small vessel ischemic changes. No orbital mass lesion No fracture or bone destruction of the cranial vault. The paranasal sinuses and mastoid air cells are normally developed and aerated. IMPRESSION: Chronic lacunar infarct in the right periventricular area Cerebral atherosclerosis, chronic small vessel ischemic changes of the cerebral white matter No acute intracranial finding Reviewed, dictated and finalized at [facility]. Reviewed, dictated and finalized at location [facility].
--- NOTE | 2020-09-10 16:26 | ED.GENADULT ---
HPI - General Adult General Chief complaint: Unspecified Stated complaint: c02 exposure? headache, burning throat, sob Time Seen by Provider: 09/10/20 16:25 Source: patient, RN notes reviewed and old records reviewed Mode of arrival: ambulatory Limitations: no limitations History of Present Illness HPI narrative: Patient is 60 years old white male presented to the ED with feeling headache, lightheadedness, dizziness, nausea started this morning catheter saran after smelling unknown gas. Patient friend who was with him at the restaurant, smelled gas but did not have any symptoms. Currently patient having headache and lightheadedness. Patient on aspirin and Xarelto Related Data Home Medications Medication Instructions Recorded Confirmed Trulicity 1.5 mg SUBCUT WEEKLY 01/24/19 08/19/20 Xarelto 2.5 mg PO BID 01/24/19 08/19/20 amlodipine 10 mg PO DAILY 01/24/19 08/19/20 bupropion HCl [Wellbutrin SR] 150 mg PO BID 01/24/19 08/19/20 doxazosin [Cardura] 2 mg PO HS 01/24/19 08/19/20 losartan [Cozaar] 100 mg PO HS 01/24/19 08/19/20 metformin 1,000 mg PO BID 01/24/19 08/19/20 omeprazole 40 mg capsule,delayed 40 mg PO DAILY 04/13/19 08/19/20 release potassium chloride 20 mEq 20 meq PO DAILY 04/13/19 08/19/20 tablet,extended release carvedilol [Coreg] 25 mg PO BID 04/28/19 08/19/20 atorvastatin 80 mg PO HS 05/16/19 08/19/20 albuterol sulfate [Ventolin HFA] 1 puff INHALATION Q4-6H PRN 01/09/20 08/19/20 budesonide-formoterol [Symbicort] 1 puff INHALATION BID 01/09/20 08/19/20 isosorbide mononitrate 60 mg PO DAILY 01/09/20 08/19/20 isosorbide mononitrate 30 mg PO DAILY 03/15/20 08/19/20 loratadine [Claritin] 10 mg PO DAILY PRN MDD 2 03/15/20 08/19/20 oxybutynin chloride 5 mg PO BID PRN MDD 2 03/15/20 08/19/20 furosemide [Lasix] 20 mg PO DAILY 04/05/20 08/19/20 Allergies Allergy/AdvReac Type Severity Reaction Status Date / Time No Known Allergies Allergy Unknown Verified 09/10/20 16:06 Review of Systems Review of Systems: Narrative: CONSTITUTIONAL: Denies fever, chills, or sweats. EYES: Denies visual changes, redness, or discharge. ENT: Denies rhinorrhea, congestion, sore throat, or otalgia. CARDIOVASCULAR: Denies chest pain, palpitations, or edema. RESPIRATORY: Denies cough or dyspnea. GASTROINTESTINAL: Denies abdominal pain, nausea, vomiting, or diarrhea. GENITOURINARY: Denies dysuria or hematuria. SKIN: Denies rash or itching. MUSCULOSKELETAL: Denies back pain, joint pain, or myalgia. NEUROLOGIC: Denies headache, numbness, or weakness. PSYCHIATRIC: Denies anxiety or depression. [facility] Past Medical History Medical History Anxiety Arthritis BMI greater than 40 CAD (coronary artery disease) CHF (congestive heart failure) Constipation COPD (chronic obstructive pulmonary disease) CVA (cerebral vascular accident) With mild left-sided weakness. Depression Diabetes mellitus Type 2 diabetes. Diarrhea Dizziness Eczema Fracture of fifth toe, right, closed GERD (gastroesophageal reflux disease) GI bleed Headache Hearing loss History of blood clots History of gastric ulcer HLD (hyperlipidemia) Hoarseness HTN (hypertension) Kidney stones Left knee pain Medial meniscus tear Myocardial infarction Nausea and vomiting TAMIR on CPAP Peripheral neuropathy Pneumonia Psoriasis PVD (peripheral vascular disease) Rectal polyp Seasonal allergies Shortness of breath Sleep apnea Sleep disorder Stomach pain TIA (transient ischemic attack) Type 2 diabetes mellitus UTI (urinary tract infection) Vertigo Vision abnormalities Weight gain Surgical History Surgical History H/O heart artery stent 2 H/O lithotripsy History of cardiac catheterization 2 stents History of loop recorder History of rectal polypectomy Hx of cholecystectomy Hx of tonsillectomy Family History Family History (Reviewed 09/10/20 @ 17:14 by Jesus Finney
[2020-09-10 16:49] LABS: Alveolar/Arterial O2 Gradient 18.1 mmHg; Base Excess ABG -1.9 mEq/l (+/-2.0); Carboxyhemoglobin 1.7 % THb (0-2.0); Device ROOM AIR; Fractional Inspired Oxygen 21 %; HCO3 ABG 21.4 mEq/l (22.0-26.0); Methemoglobin ABG 0.3 %THb (0-1.5); Modified Allen's Test Pass; Oxygen Content ABG 19.3 %vol (16.0-22.0); Oxygen Saturation ABG 97.4 % (95.0-100.0); Oxyhemoglobin 94.1 % THb (90.0-100.0); PCO2 ABG 32.4 mmHg (35.0-45.0); PO2 ABG 92.8 mmHg (80.0-100.0); PO2 FiO2 Ratio Arterial Blood 4.42 %; Reduced Hemoglobin 3.9 %THb (0-5.0); Site Drawn LEFT RADIAL; Total Hemoglobin 14.5 g/dL (12.0-18.0); pH ABG 7.437 (7.350-7.450)
--- NOTE | 2020-09-10 16:59 | ECG_ITS ---
Measurements Intervals [place] Rate: 78 P: 0 CO: 160 QRS: -31 QRSD: 160 T: 1 QT: 425 QTc: 484 Interpretive Statements SINUS RHYTHM RIGHT BUNDLE BRANCH BLOCK CONSIDER INFERIOR INFARCT, AGE INDETERMINATE BASELINE ARTIFACT- II, V1, V3-V6 ABNORMAL ECG Electronically Signed On 09-10-2020 19:52:50 CDT by Mathew Landon D.O.
[2020-09-10 17:28] LABS: Basophils Percent Auto 0.3 % (0.2-1.2); Eosinophils Absolute Auto 0.2 K/mm3 (0-0.3); Eosinophils Percent Auto 2.3 % (0-4.4); Hematocrit 42.1 % (42.0-52.0); Hemoglobin 14.1 g/dL (14.0-18.0); Immature Granulocyte Absolute 0.02 K/mm3 (0.00-0.031); Immature Granulocyte Percent A 0.3 % (0-0.5); Lymphocytes Percent Auto 20.2 % (18.3-44.2); Mean Corpuscular HGB Conc 33.5 g/dl (32-36); Mean Corpuscular Hemoglobin 30.4 pg (26-34); Mean Corpuscular Volume 90.7 fl (80-100); Mean Platelet Volume 11.2 fl (7.4-10.4); Monocytes Absolute Auto 0.6 K/mm3 (0.1-0.6); Monocytes Percent Auto 8.1 % (2.6-8.5); Neutrophils Absolute Auto 5.1 K/mm3 (1.3-6.7); Neutrophils Percent Auto 68.8 % (45.5-73.1); Platelet Count Result 155 k/mm3 (150-375); Red Blood Count 4.64 M/mm3 (4.6-6.20); Red Cell Distribution Width 13.8 % (11.5-14.5); White Blood Count 7.4 K/mm3 (4.5-10.0)
[2020-09-10 17:39] LABS: INR 1.1; Prothrombin Time 14.5 Seconds (11.1-14.7)
[2020-09-10 17:41] LABS: Partial Thromboplastin Time 30.9 SECONDS (22.3-36.8)
[2020-09-10 17:48] LABS: Alanine Aminotransferase 36 U/L (4-50); Albumin Level 4.4 g/dL (3.5-5.1); Alkaline Phosphatase 64 U/L (38-126); Anion Gap 10 mmol/L (8-16); Aspartate Amino Transferase 37 U/L (17-59); Bilirubin,Total 0.7 mg/dL (0.2-1.3); Blood Urea Nitrogen 17 mg/dL (9-20); Calcium 9.4 mg/dL (8.4-10.2); Carbon Dioxide 25 mmol/L (22-30); Chloride 103 mmol/L (98-107); Estimated CRCL calculation 87 ml/min; Estimated Glomerular Filt Rate > 60; Glucose 133 mg/dL (75-110); Potassium 4.4 mmol/L (3.4-5.0); Sodium 138 mmol/L (137-145)
[2020-09-10 17:55] LABS: Troponin I < 0.012 ng/mL (0.000-0.034)
== END 2020-09-10 19:05 | disposition home or self-care (01) ==
PROVIDERS: Emergency Provider Emergency Medicine; PCP Registered Nurse
DX: F43.9 Reaction to severe stress, unspecified (principal); I25.10 Atherosclerotic heart disease of native coronary artery without angina pectoris; J44.9 Chronic obstructive pulmonary disease, unspecified; I11.0 Hypertensive heart disease with heart failure; I50.9 Heart failure, unspecified; E11.9 Type 2 diabetes mellitus without complications; I25.2 Old myocardial infarction; F17.210 Nicotine dependence, cigarettes, uncomplicated; Z86.73 Personal history of transient ischemic attack (TIA), and cerebral infarction without residual deficits; Z79.01 Long term (current) use of anticoagulants; Z79.84 Long term (current) use of oral hypoglycemic drugs; Z79.82 Long term (current) use of aspirin
CPT/HCPCS: 36415; 36600; 70450; 71045; 80053; 82375; 82805; 83050; 84484; 85025; 85610; 85730; 93005; 99284

== ENCOUNTER 2020-10-30 08:35 | Emergency (ER) | payer MEDICARE, MEDICAID, SELFPAY ==
[2020-10-30 08:32] VITALS: BP 102/58; PULSE 68; RESP 19; TEMP 36.8; O2SAT 97
--- NOTE | 2020-10-30 08:39 | ECG_ITS ---
Measurements Intervals [place] Rate: 66 P: 41 [place]: 157 QRS: 18 QRSD: 153 T: 38 QT: 465 QTc: 488 Interpretive Statements SINUS RHYTHM RIGHT BUNDLE BRANCH BLOCK CONSIDER INFERIOR INFARCT, AGE INDETERMINATE ABNORMAL ECG Electronically Signed On 10-30-2020 8:53:32 CDT by Mathew Landon D.O.
--- NOTE | 2020-10-30 09:24 | ED.GENADULT ---
HPI - General Adult General Chief complaint: Dizziness Stated complaint: DIZZINESS Time Seen by Provider: 10/30/20 09:04 Source: patient Mode of arrival: ambulatory Limitations: no limitations History of Present Illness HPI narrative: Patient had sudden onset of dizziness this morning accompanied by headache. He states that he has had milder episodes in the past usually related to dehydration. Today he has headache dizziness and nausea. He had dental extraction surgery 1 week ago and has been taking hydrocodone 10/325 4 times a day since. He denies any recent fever, he does have some neck pain. Onset (ago): hour(s) Severity: moderate Quality: aching Relieving factors: none Exacerbating factors: movement Associated symptoms: denies other symptoms Treatments prior to arrival: none Related Data Home Medications Medication Instructions Recorded Confirmed Trulicity 1.5 mg SUBCUT WEEKLY 01/24/19 08/19/20 Xarelto 2.5 mg PO BID 01/24/19 08/19/20 amlodipine 10 mg PO DAILY 01/24/19 08/19/20 bupropion HCl [Wellbutrin SR] 150 mg PO BID 01/24/19 08/19/20 doxazosin [Cardura] 2 mg PO HS 01/24/19 08/19/20 losartan [Cozaar] 100 mg PO HS 01/24/19 08/19/20 metformin 1,000 mg PO BID 01/24/19 08/19/20 omeprazole 40 mg capsule,delayed 40 mg PO DAILY 04/13/19 08/19/20 release potassium chloride 20 mEq 20 meq PO DAILY 04/13/19 08/19/20 tablet,extended release carvedilol [Coreg] 25 mg PO BID 04/28/19 08/19/20 atorvastatin 80 mg PO HS 05/16/19 08/19/20 albuterol sulfate [Ventolin HFA] 1 puff INHALATION Q4-6H PRN 01/09/20 08/19/20 budesonide-formoterol [Symbicort] 1 puff INHALATION BID 01/09/20 08/19/20 isosorbide mononitrate 60 mg PO DAILY 01/09/20 08/19/20 isosorbide mononitrate 30 mg PO DAILY 03/15/20 08/19/20 loratadine [Claritin] 10 mg PO DAILY PRN MDD 2 03/15/20 08/19/20 oxybutynin chloride 5 mg PO BID PRN MDD 2 03/15/20 08/19/20 furosemide [Lasix] 20 mg PO DAILY 04/05/20 08/19/20 Allergies Allergy/AdvReac Type Severity Reaction Status Date / Time No Known Allergies Allergy Unknown Verified 10/30/20 08:41 Review of Systems Review of Systems: All systems reviewed & are unremarkable except as noted in HPI and below PMFSH Past Medical History Medical History Anxiety Arthritis BMI greater than 40 CAD (coronary artery disease) CHF (congestive heart failure) Constipation COPD (chronic obstructive pulmonary disease) CVA (cerebral vascular accident) With mild left-sided weakness. Depression Diabetes mellitus Type 2 diabetes. Diarrhea Dizziness Eczema Fracture of fifth toe, right, closed GERD (gastroesophageal reflux disease) GI bleed Headache Hearing loss History of blood clots History of gastric ulcer HLD (hyperlipidemia) Hoarseness HTN (hypertension) Kidney stones Left knee pain Medial meniscus tear Myocardial infarction Nausea and vomiting TAMIR on CPAP Peripheral neuropathy Pneumonia Psoriasis PVD (peripheral vascular disease) Rectal polyp Seasonal allergies Shortness of breath Sleep apnea Sleep disorder Stomach pain TIA (transient ischemic attack) Type 2 diabetes mellitus UTI (urinary tract infection) Vertigo Vision abnormalities Weight gain Surgical History Surgical History H/O heart artery stent 2 H/O lithotripsy History of cardiac catheterization 2 stents History of loop recorder History of rectal polypectomy Hx of cholecystectomy Hx of tonsillectomy Family History Family History Mother Diabetes mellitus Kidney stones Father Acute myocardial infarction Kidney stones Heart disease Sibling Heart disease Other Arthritis Hypertension Social History Social History Social History: The patient is and has no children. Rena Dodd is his durable power atto
[2020-10-30 09:39] LABS: Basophils Percent Auto 0.2 % (0.2-1.2); Eosinophils Absolute Auto 0.2 K/mm3 (0-0.3); Eosinophils Percent Auto 1.6 % (0-4.4); Hematocrit 38.7 % (42.0-52.0); Hemoglobin 13.3 g/dL (14.0-18.0); Immature Granulocyte Absolute 0.03 K/mm3 (0.00-0.031); Immature Granulocyte Percent A 0.3 % (0-0.5); Lymphocytes Absolute Auto 1.08 K/mm3 (0.9-3.2); Lymphocytes Percent Auto 10.3 % (18.3-44.2); Mean Corpuscular HGB Conc 34.4 g/dl (32-36); Mean Corpuscular Volume 90.2 fl (80-100); Mean Platelet Volume 11.1 fl (7.4-10.4); Monocytes Percent Auto 9.4 % (2.6-8.5); Neutrophils Absolute Auto 8.2 K/mm3 (1.3-6.7); Neutrophils Percent Auto 78.2 % (45.5-73.1); Platelet Count Result 154 k/mm3 (150-375); Red Blood Count 4.29 M/mm3 (4.6-6.20); Red Cell Distribution Width 13.6 % (11.5-14.5); White Blood Count 10.4 K/mm3 (4.5-10.0)
[2020-10-30] MEDS: SODIUM CHLORIDE 0.9% IV 1,000 ML 999 ML IV CONT (09:46)
[2020-10-30] MEDS: ONDANSETRON INJ 4 MG/2 ML VIAL IV PUSH (09:46)
[2020-10-30] MEDS: KETOROLAC 30 MG/ML VIAL (*BKC) IV PUSH (09:47)
[2020-10-30 09:49] LABS: Anion Gap 8 mmol/L (8-16); Blood Urea Nitrogen 11 mg/dL (9-20); Calcium 8.9 mg/dL (8.4-10.2); Carbon Dioxide 23 mmol/L (22-30); Chloride 103 mmol/L (98-107); Estimated CRCL calculation 102 ml/min; Estimated Glomerular Filt Rate > 60; Glucose 183 mg/dL (65-110); Potassium 4.1 mmol/L (3.4-5.0); Sodium 134 mmol/L (137-145)
[2020-10-30 09:50] VITALS: BP 88/59; PULSE 63; RESP 16; O2SAT 100
--- NOTE | 2020-10-30 09:59 | PC.NURSE ---
patient laid flat due to severe nausea and dizziness, sudden onset, unable to sit up or stand at this time. Fluids started per EDP order.
[2020-10-30 10:23] VITALS: BP 117/56; PULSE 62; RESP 22; O2SAT 97
== END 2020-10-30 11:27 | disposition home or self-care (01) ==
PROVIDERS: Emergency Provider Emergency Medicine; PCP Registered Nurse
DX: E86.0 Dehydration (principal); R42 Dizziness and giddiness; F41.9 Anxiety disorder, unspecified; M19.90 Unspecified osteoarthritis, unspecified site; I25.10 Atherosclerotic heart disease of native coronary artery without angina pectoris; I11.0 Hypertensive heart disease with heart failure; I50.9 Heart failure, unspecified; J44.9 Chronic obstructive pulmonary disease, unspecified; I69.354 Hemiplegia and hemiparesis following cerebral infarction affecting left non-dominant side; E11.42 Type 2 diabetes mellitus with diabetic polyneuropathy; E78.5 Hyperlipidemia, unspecified; I25.2 Old myocardial infarction; F17.210 Nicotine dependence, cigarettes, uncomplicated; Z98.818 Other dental procedure status; Z86.718 Personal history of other venous thrombosis and embolism; Z87.19 Personal history of other diseases of the digestive system; Z79.899 Other long term (current) drug therapy
CPT/HCPCS: 36415; 80048; 85025; 93005; 96361; 96374; 96375; 99284; J1885; J2405; J7030

== ENCOUNTER 2020-11-01 18:01 | Emergency (ER) | payer MEDICARE, MEDICAID, SELFPAY ==
[2020-11-01] VITALS (12 sets, daily range): BP systolic 88–138; BP diastolic 62–84; PULSE 67–80; RESP 12–20; TEMP 36.3; O2SAT 96–100
--- NOTE | 2020-11-01 18:19 | PC.NURSE ---
Called poison controlled. states he is not at a toxic level and recommends to observe for a couple of hours.
--- NOTE | 2020-11-01 19:30 | ECG_ITS ---
Measurements Intervals [place] Rate: 67 P: 28 NE: 163 QRS: 12 QRSD: 154 T: 17 QT: 424 QTc: 448 Interpretive Statements SINUS RHYTHM WITH SINUS ARRHYTHMIA ATRIAL PREMATURE COMPLEX RIGHT BUNDLE BRANCH BLOCK CONSIDER INFERIOR INFARCT, AGE INDETERMINATE BASELINE WANDER- I, II ABNORMAL ECG Electronically Signed On 11-01-2020 20:15:17 CDT by Mathew Landon D.O.
--- NOTE | 2020-11-01 20:27 | ED.GENADULT ---
HPI - General Adult General Chief complaint: Overdose <Megha Espinoza PA-C - Last Filed: 11/01/20 20:31> Stated complaint: Took too much pain meds <Megha Espinoza PA-C - Last Filed: 11/01/20 20:31> Time Seen by Provider: 11/01/20 19:41 <Megha Espinoza PA-C - Last Filed: 11/01/20 20:31> Source: patient <Megha Espinoza PA-C - Last Filed: 11/01/20 20:31> Mode of arrival: ambulatory <Megha Espinoza PA-C - Last Filed: 11/01/20 20:31> Limitations: no limitations <Megha Espinoza PA-C - Last Filed: 11/01/20 20:31> History of Present Illness HPI narrative: Patient presents feeling groggy after taking 13 Vicodin tablets between 11 AM yesterday and just prior to arrival. Patient states that he has some mild dementia and he did not realize that he had taken pain medication already and when he was in pain he would just like another not realizing that he had already taken medication. Patient states that he had no intent to hurt himself. states that prior to arrival he is very groggy. Patient has not had any vomiting, diarrhea, syncope, respiratory issues. <Megha Espinoza PA-C - Last Filed: 11/01/20 20:31> Related Data Home medications: Home Medications Medication Instructions Recorded Confirmed Trulicity 1.5 mg SUBCUT WEEKLY 01/24/19 08/19/20 Xarelto 2.5 mg PO BID 01/24/19 08/19/20 amlodipine 10 mg PO DAILY 01/24/19 08/19/20 bupropion HCl [Wellbutrin SR] 150 mg PO BID 01/24/19 08/19/20 doxazosin [Cardura] 2 mg PO HS 01/24/19 08/19/20 losartan [Cozaar] 100 mg PO HS 01/24/19 08/19/20 metformin 1,000 mg PO BID 01/24/19 08/19/20 omeprazole 40 mg capsule,delayed 40 mg PO DAILY 04/13/19 08/19/20 release potassium chloride 20 mEq 20 meq PO DAILY 04/13/19 08/19/20 tablet,extended release carvedilol [Coreg] 25 mg PO BID 04/28/19 08/19/20 atorvastatin 80 mg PO HS 05/16/19 08/19/20 albuterol sulfate [Ventolin HFA] 1 puff INHALATION Q4-6H PRN 01/09/20 08/19/20 budesonide-formoterol [Symbicort] 1 puff INHALATION BID 01/09/20 08/19/20 isosorbide mononitrate 60 mg PO DAILY 01/09/20 08/19/20 isosorbide mononitrate 30 mg PO DAILY 03/15/20 08/19/20 loratadine [Claritin] 10 mg PO DAILY PRN MDD 2 03/15/20 08/19/20 oxybutynin chloride 5 mg PO BID PRN MDD 2 03/15/20 08/19/20 furosemide [Lasix] 20 mg PO DAILY 04/05/20 08/19/20 <Megha Espinoza PA-C - Last Filed: 11/01/20 20:31> Allergies/adverse reactions: Allergies Allergy/AdvReac Type Severity Reaction Status Date / Time No Known Allergies Allergy Unknown Verified 10/30/20 08:41 <Megha Espinoza PA-C - Last Filed: 11/01/20 20:31> Review of Systems Review of Systems: CONSTITUTIONAL: Reports fatigue denies fever, chills, or sweats. EYES: Denies visual changes, redness, or discharge. ENT: Denies rhinorrhea, congestion, sore throat, or otalgia. CARDIOVASCULAR: Denies chest pain, palpitations, or edema. RESPIRATORY: Denies cough or dyspnea. GASTROINTESTINAL: Denies abdominal pain, nausea, vomiting, or diarrhea. GENITOURINARY: Denies dysuria or hematuria. SKIN: Denies rash or itching. MUSCULOSKELETAL: Denies back pain, joint pain, or myalgia. NEUROLOGIC: Denies headache, numbness, dizziness, or weakness. PSYCHIATRIC: Denies anxiety or depression. <Megha Espinoza PA-C - Last Filed: 11/01/20 20:31> [facility] Past Medical History Medical History: Medical History Anxiety Arthritis BMI greater than 40 CAD (coronary artery disease) CHF (congestive heart failure) Constipation COPD (chronic obstructive pulmonary disease) CVA (cerebral vascular accident) With mild left-sided weakness. Depression Diabetes mellitus Type 2 diabetes. Diarrhea Dizziness Eczema Fracture of fifth toe, right, closed GERD (gastroesophageal reflux disease) GI bleed Headache Hearing loss History of blood clots History of gastric ulcer HLD (hyperlipidemia) Hoarseness HTN (hypertension) Kidney stones
== END 2020-11-01 20:40 | disposition home or self-care (01) ==
PROVIDERS: Emergency Provider General Practice; PCP Registered Nurse
DX: T40.2X1A Poisoning by other opioids, accidental (unintentional), initial encounter (principal); I25.10 Atherosclerotic heart disease of native coronary artery without angina pectoris; I50.9 Heart failure, unspecified; I11.0 Hypertensive heart disease with heart failure; I69.954 Hemiplegia and hemiparesis following unspecified cerebrovascular disease affecting left non-dominant side; E78.5 Hyperlipidemia, unspecified; E11.51 Type 2 diabetes mellitus with diabetic peripheral angiopathy without gangrene; G47.33 Obstructive sleep apnea (adult) (pediatric); I25.2 Old myocardial infarction; K21.9 Gastro-esophageal reflux disease without esophagitis; F32.9 Major depressive disorder, single episode, unspecified; F41.9 Anxiety disorder, unspecified; F17.210 Nicotine dependence, cigarettes, uncomplicated; Z87.442 Personal history of urinary calculi; Z87.01 Personal history of pneumonia (recurrent); Z87.440 Personal history of urinary (tract) infections; Z95.5 Presence of coronary angioplasty implant and graft; Z79.899 Other long term (current) drug therapy; Z79.84 Long term (current) use of oral hypoglycemic drugs; Z79.01 Long term (current) use of anticoagulants; I49.1 Atrial premature depolarization; I45.10 Unspecified right bundle-branch block; R94.31 Abnormal electrocardiogram [ECG] [EKG]
CPT/HCPCS: 93005; 99283

== ENCOUNTER 2021-01-14 11:12 | Observation (INO) | payer MEDICARE, MEDICAID, SELFPAY ==
[2021-01-14] VITALS (78 sets, daily range): BP systolic 138–177; BP diastolic 77–122; PULSE 66–95; RESP 11–34; TEMP 36.1–36.4; O2SAT 94–100; BMI 43.0; BMI 43.9
--- NOTE | ~2021-01-14 | NM_ITS ---
EXAMINATION: NM angelo stress w perfusion DATE: 01/15/2021 14:11 INDICATION: Chest pain. TECHNIQUE: Rest images were obtained following intravenous administration of 9 mCi Tc99m tetrofosmin (Myoview). The patient was infused intravenously with Lexiscan (regadenoson). Then, 29.4 mCi Tc99m te trofosmin (Myoview) was administered intravenously, and stress images were obtained. Data was reconst ructed into short axis and horizontal and vertical long axis SPECT images. Gated SPECT images were al so obtained. COMPARISON: Myocardial perfusion imaging 02/15/2015 FINDINGS: There is no definite reversible or fixed perfusion abnormality to suggest ischemia or infar ction. There is no segmental wall motion abnormality. Left ventricular ejection fraction measures 6 8%. IMPRESSION: 1. No definite ischemia or infarct. 2. Normal left ventricular ejection fraction measuring 68%. Reviewed, dictated and finalized at location A. LRY STORE MANAGER
--- NOTE | ~2021-01-14 | XR_ITS ---
XR chest 1V portable DATE: 01/14/2021 14:15 INDICATION: Chest and left arm pain. History of coronary disease, hypertension, COPD TECHNIQUE: Portable upright AP chest on 01/14/2021 at 1412 hours COMPARISON: 09/10/2020 AP chest 09/29/2019 AP chest FINDINGS: Normal heart size. desk monitor device overlies the left chest. Mild aortic unfolding. No hilar enlargement. There is widening of the superior mediastinum without tr acheal deviation, which might be due to tortuous great vessel, not significantly changed since 021 or 09/29/2019. No pulmonary infiltrate or consolidation, pleural effusion or pulmonary vascular congestion or pneumo thorax. Diffuse osteopenia. Degenerative spurring of the thoracic spine. IMPRESSION: No active cardiopulmonary disease Reviewed, dictated and finalized at location A. R MACHINE OPERATOR
--- NOTE | 2021-01-14 11:27 | ECG_ITS ---
Measurements Intervals [place] Rate: 71 P: 37 [place]: 162 QRS: 23 QRSD: 146 T: 9 QT: 422 QTc: 459 Interpretive Statements SINUS RHYTHM RIGHT BUNDLE BRANCH BLOCK BASELINE ARTIFACT- V1, V3 ABNORMAL ECG Electronically Signed On 01-14-2021 12:57:51 SECURITY SME by Mathew Landon D.O.
[2021-01-14 12:22] LABS: Prothrombin Time 12.9 Seconds (11.1-14.7)
[2021-01-14 12:23] LABS: Basophils Percent Auto 0.3 % (0.2-1.2); Eosinophils Absolute Auto 0.2 K/mm3 (0-0.3); Eosinophils Percent Auto 2.5 % (0-4.4); Hematocrit 41.8 % (42.0-52.0); Hemoglobin 14.3 g/dL (14.0-18.0); Immature Granulocyte Absolute 0.03 K/mm3 (0.00-0.031); Immature Granulocyte Percent A 0.4 % (0-0.5); Immature Platelet Fraction Pct 6.3 % (0.9-11.2); Lymphocytes Absolute Auto 1.21 K/mm3 (0.9-3.2); Lymphocytes Percent Auto 17.7 % (18.3-44.2); Mean Corpuscular HGB Conc 34.2 g/dl (32-36); Mean Corpuscular Hemoglobin 30.1 pg (26-34); Mean Platelet Volume 10.8 fl (7.4-10.4); Monocytes Absolute Auto 0.7 K/mm3 (0.1-0.6); Monocytes Percent Auto 9.5 % (2.6-8.5); Neutrophils Absolute Auto 4.8 K/mm3 (1.3-6.7); Neutrophils Percent Auto 69.6 % (45.5-73.1); Platelet Count Result 139 k/mm3 (150-375); Red Blood Count 4.75 M/mm3 (4.6-6.20); Red Cell Distribution Width 13.1 % (11.5-14.5); White Blood Count 6.9 K/mm3 (4.5-10.0)
[2021-01-14 12:24] LABS: Anion Gap 8 mmol/L (8-16); Blood Urea Nitrogen 13 mg/dL (9-20); Calcium 9.5 mg/dL (8.4-10.2); Carbon Dioxide 26 mmol/L (22-30); Chloride 100 mmol/L (98-107); Estimated CRCL calculation 124 ml/min; Estimated Glomerular Filt Rate > 60; Glucose 153 mg/dL (65-110); Potassium 4.5 mmol/L (3.4-5.0); Sodium 134 mmol/L (137-145)
[2021-01-14 12:34] LABS: Troponin I < 0.012 ng/mL (0.000-0.034)
--- NOTE | 2021-01-14 13:46 | ED.CHESTPAIN ---
HPI - Chest Pain General Chief Complaint: Chest Pain Stated Complaint: chest pain since last night Time Seen by Provider: 01/14/21 13:22 Source: patient and RN notes reviewed Mode of arrival: ambulatory Limitations: no limitations History of Present Illness HPI narrative: Patient presents with chest pain started last night at 9 PM at rest while watching TV lasted for 1 hour, got better on nitro with severe headache. The chest pain wake patient up at 2:30 AM, got better on nitro, gets worse with exertion and the headache got worse. Later patient noticed pain at the left shoulder. Currently complaining of headache, left shoulder pain and chest tightness. History of diabetes, hypertension, sleep apnea, coronary stent times 04/2014, Dr. Willoughby. Also history of CHF, COPD, TIA, sleep apnea and tobacco use. Related Data Home Medications Medication Instructions Recorded Confirmed Trulicity 1.5 mg SUBCUT WEEKLY 01/24/19 08/19/20 Xarelto 2.5 mg PO BID 01/24/19 08/19/20 amlodipine 10 mg PO DAILY 01/24/19 08/19/20 bupropion HCl [Wellbutrin SR] 150 mg PO BID 01/24/19 08/19/20 doxazosin [Cardura] 2 mg PO HS 01/24/19 08/19/20 losartan [Cozaar] 100 mg PO HS 01/24/19 08/19/20 metformin 1,000 mg PO BID 01/24/19 08/19/20 omeprazole 40 mg capsule,delayed 40 mg PO DAILY 04/13/19 08/19/20 release potassium chloride 20 mEq 20 meq PO DAILY 04/13/19 08/19/20 tablet,extended release carvedilol [Coreg] 25 mg PO BID 04/28/19 08/19/20 atorvastatin 80 mg PO HS 05/16/19 08/19/20 albuterol sulfate [Ventolin HFA] 1 puff INHALATION Q4-6H PRN 01/09/20 08/19/20 budesonide-formoterol [Symbicort] 1 puff INHALATION BID 01/09/20 08/19/20 isosorbide mononitrate 60 mg PO DAILY 01/09/20 08/19/20 isosorbide mononitrate 30 mg PO DAILY 03/15/20 08/19/20 loratadine [Claritin] 10 mg PO DAILY PRN MDD 2 03/15/20 08/19/20 oxybutynin chloride 5 mg PO BID PRN [facility] 2 03/15/20 08/19/20 furosemide [Lasix] 20 mg PO DAILY 04/05/20 08/19/20 Allergies Allergy/AdvReac Type Severity Reaction Status Date / Time No Known Allergies Allergy Unknown Verified 01/14/21 13:14 Review of Systems Review of Systems: CONSTITUTIONAL: Denies fever, chills, or sweats. EYES: Denies visual changes, redness, or discharge. ENT: Denies rhinorrhea, congestion, sore throat, or otalgia. CARDIOVASCULAR: Denies chest pain, palpitations, or edema. RESPIRATORY: Denies cough or dyspnea. GASTROINTESTINAL: Denies abdominal pain, nausea, vomiting, or diarrhea. GENITOURINARY: Denies dysuria or hematuria. SKIN: Denies rash or itching. MUSCULOSKELETAL: Denies back pain, joint pain, or myalgia. NEUROLOGIC: Denies headache, numbness, or weakness. PSYCHIATRIC: Denies anxiety or depression. [facility] Past Medical History Medical History Anxiety Arthritis BMI greater than 40 CAD (coronary artery disease) CHF (congestive heart failure) Constipation COPD (chronic obstructive pulmonary disease) CVA (cerebral vascular accident) With mild left-sided weakness. Depression Diabetes mellitus Type 2 diabetes. Diarrhea Dizziness Eczema Fracture of fifth toe, right, closed GERD (gastroesophageal reflux disease) GI bleed Headache Hearing loss History of blood clots History of gastric ulcer HLD (hyperlipidemia) Hoarseness HTN (hypertension) Kidney stones Left knee pain Medial meniscus tear Myocardial infarction Nausea and vomiting TAMIR on CPAP Peripheral neuropathy Pneumonia Psoriasis PVD (peripheral vascular disease) Rectal polyp Seasonal allergies Shortness of breath Sleep apnea Sleep disorder Stomach pain TIA (transient ischemic attack) Type 2 diabetes mellitus UTI (urinary tract infection) Vertigo Vision abnormalities Weight gain Surgical History Surgical History H/O heart artery stent 2 H/O lithotripsy History of cardiac catheterization 2 stents History of loop recorder History of rectal polyp
[2021-01-14] MEDS: METOPROLOL TARTRATE TAB 25 MG, METOPROLOL TARTRATE TAB 12.5 MG 37.5 MG PO (14:32)
[2021-01-14] MEDS: ASPIRIN 81 MG CHEWABLE TABLET 324 MG PO (14:32)
[2021-01-14] MEDS: MORPHINE SULFATE (*CRX) 4 MG/ML INJ IV PUSH (15:16)
[2021-01-14] MEDS: ONDANSETRON INJ 4 MG/2 ML VIAL IV PUSH (15:16)
[2021-01-14 15:47] LABS: Alanine Aminotransferase 38 U/L (4-50); Albumin Level 4.5 g/dL (3.5-5.1); Alkaline Phosphatase 77 U/L (38-126); Aspartate Amino Transferase 34 U/L (17-59); Bilirubin,Total 0.6 mg/dL (0.2-1.3)
[2021-01-14 15:57] LABS: Troponin I < 0.012 ng/mL (0.000-0.034)
--- NOTE | 2021-01-14 17:50 | PM.IMHP ---
H&P: HPI History of Present Illness Date/Time: 01/14/21 17:50 Chief Complaint: Chest pain. Narrative: This is a 60-year-old male with multiple medical problems including history of strokes, TIAs, type 2 diabetes mellitus, coronary artery disease, peripheral vascular disease, congestive heart failure, and several other comorbidities who presented to the emergency department earlier today from home for evaluation of chest pain. Last evening simply while sitting down watching television he developed a heaviness in the mid chest region which radiated through to the back and up into the neck, left shoulder, and even into the head. He felt perhaps a little bit short of breath with that as well. He took a nitroglycerin which did improve somewhat with nitroglycerin however that made his headache worse. He was able to retire to bed though he was wakened from sleep at 02:30 with similar discomfort for which he once again took nitroglycerin without a lot of benefit. Since receiving morphine in the emergency department his chest discomfort has improved quite a bit. He denies fever, chills, sweats, cold and flu symptoms, pleuritic pain, orthopnea, PND, vomiting, sweats, and edema. Review of Systems Review of Systems: Twelve systems were reviewed with pertinent positives and negatives as per HPI. Except as documented, all other systems were reviewed and are negative. [facility] Past Medical History Medical History (Updated 01/14/21 @ 23:02 by Moira Olson PA-C) Anxiety Arthritis 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 Chronic anticoagulation Chronic obstructive pulmonary disease Congestive heart failure Coronary artery disease Deep venous thrombosis Depression Diabetic peripheral neuropathy Eczema Gastric ulcer Gastroesophageal reflux disease GI bleed Hearing loss Hyperlipidemia Hypertension Kidney stones Medial meniscus tear Myocardial infarction Nausea and vomiting Obstructive sleep apnea on CPAP Peripheral vascular disease Pneumonia Psoriasis Rectal polyp Seasonal allergies Transient ischemic attack Type 2 diabetes mellitus Surgical History Surgical History (Updated 01/14/21 @ 23:02 by Moira Olson PA-C) History of cardiac catheterization 2 stents History of cholecystectomy History of heart artery stent X2. History of lithotripsy History of loop recorder History of rectal polypectomy History of tonsillectomy Family History Family History Mother Diabetes mellitus Kidney stones Father Acute myocardial infarction Kidney stones Heart disease Sibling Heart disease Other Arthritis Hypertension Social History Social History (Updated 01/14/21 @ 23:03 by Moira Olson PA-C) Social History: Surrogate decision maker: Rena Dodd, friend. Code status: Full code. Smoking packs per day: 1 Smoking cigarettes per day: 20.0 Years smoked: 44 Smoking pack-years: 44.00 Smoking status: Current every day smoker Tobacco type: cigarettes Second hand tobacco smoke exposure: Yes Additional smoking assessment comments: Patient states he smokes 3 to 4 cigarettes a day now. Alcohol intake: former Substance use: never Substance use type: does not use Additional living arrangements comments: The patient lives in [place] with a roommate. He has no children. Additional occupation/education comments: Disabled. Meds Home Medications and Allergies Home Medications Medication Instructions Recorded Confirmed Type Trulicity 1.5 mg SUBCUT WEEKLY 01/24/19 08/19/20 History Xarelto 2.5 mg PO BID 01/24/19 08/19/20 History amlodipine 10 mg PO DAILY 01/24/19 08/19/20 History bupropion HCl [Wellbutrin SR] 150 mg PO BID 01/24/19 08/19/20 History doxazosin [Cardura] 2 mg PO HS 01/24/19 08/19/20 History losartan [Cozaar] 100 mg PO HS 01/24/19
[2021-01-14 18:47] LABS: Troponin I < 0.012 ng/mL (0.000-0.034)
--- NOTE | 2021-01-14 22:02 | ADMGEN ---
This patient, Vnii Zambrano, was admitted to IMU Room 202-01 on 01/14/21 at 2200. Received report from Dorys in ED. Patient/family oriented to hospital policies and general routines including ID bracelet, bed and alarms, visiting hours, pain management, procedures, bathroom and other care routines, personal items, smoking policy, room service/diet, and visiting hours. Information on how to activate the Rapid Response Team has been discussed. Patient/Family are encouraged to report perceived risks to care and to ask questions if they do not understand what they are told or what they should do.
[2021-01-14 23:31] LABS: Hemoglobin A1C 6.3 % (<5.7)
[2021-01-15] VITALS (19 sets, daily range): BP systolic 103–133; BP diastolic 56–71; PULSE 62–74; RESP 14–26; TEMP 36.2–37.2; O2SAT 95–100
[2021-01-15] MEDS: DOXAZOSIN MESYLATE 2 MG TABLET PO ×2 (02:56→21:31)
[2021-01-15] MEDS: LOSARTAN POTASSIUM 100 MG TABLET PO ×2 (02:57→21:31)
[2021-01-15] MEDS: ATORVASTATIN 40 MG TABLET 80 MG PO ×2 (02:57→21:31)
[2021-01-15 05:32] LABS: Anion Gap 8 mmol/L (8-16); Blood Urea Nitrogen 14 mg/dL (9-20); Carbon Dioxide 24 mmol/L (22-30); Chloride 100 mmol/L (98-107); Estimated CRCL calculation 113 ml/min; Estimated Glomerular Filt Rate > 60; Glucose 145 mg/dL (65-110); Sodium 132 mmol/L (137-145)
[2021-01-15] MEDS: NITROGLYCERIN SL 0.4 MG TABLET SUBLINGUAL (07:37)
--- NOTE | 2021-01-15 07:47 | ECG_ITS ---
Measurements Intervals [place] Rate: 73 P: -6 [place]: 161 QRS: 15 QRSD: 145 T: 11 QT: 433 QTc: 478 Interpretive Statements SINUS RHYTHM RIGHT BUNDLE BRANCH BLOCK CONSDIER INFERIOR INFARCT, AGE INDETERMINATE ABNORMAL ECG Electronically Signed On 01-15-2021 11:23:30 DIETARY SERVICES DIRECTOR by Mathew Landon D.O.
[2021-01-15] MEDS: ASPIRIN 81 MG CHEWABLE TABLET PO (08:08)
[2021-01-15] MEDS: PANTOPRAZOLE 40 MG TABLET PO ×2 (08:09→17:13)
[2021-01-15] MEDS: carvediloL 25 MG TABLET PO ×2 (08:09→17:12)
[2021-01-15] MEDS: ISOSORBIDE MONONITRATE 60 MG TAB.ER.24H PO (08:10)
[2021-01-15] MEDS: buPROPion HCL SR (12 HR) 150 MG TAB PO ×2 (08:10→21:31)
[2021-01-15] MEDS: ISOSORBIDE MONONITRATE 30 MG TAB.ER.24H PO (08:10)
--- NOTE | 2021-01-15 08:12 | PM.CNCAR ---
Assessment and Plan Assessment and plan (1) Chest pain: Qualifiers: Chest pain type: unspecified Qualified Code(s): R07.9 - Chest pain, unspecified Code(s): R07.9 - Chest pain, unspecified Status: Acute Assessment and Plan: 60-year-old male with CAD, history of PCI/drug eluting stenting of distal LCX and proximal LAD (September 11, 2014 and April 19, 2015 respectively), type 2 diabetes mellitus, obesity, TAMIR on CPAP, history of CVA. patient presented to the hospital with 2 day history of intermittent chest pain with features suggestive of angina. He has known CAD. EKG shows sinus rhythm, right bundle branch block, no acute ST segment abnormality. Serial troponins are negative. At the time of evaluation today, patient denied ongoing chest discomfort. After discussing further diagnostic options for patients symptoms, patient was willing to proceed with pharmacologic MPI to check for any significant myocardial ischemia. Patient is currently on anticoagulation with rivaroxaban which will be temporarily put on hold in anticipation for possible invasive ischemic workup with cardiac catheterization, based on patient's clinical course and MPI results. Patient will be placed on low-molecular weight heparin in anticipation for possible cardiac catheterization tomorrow. (2) CAD (coronary artery disease): Code(s): I25.10 - Atherosclerotic heart disease of [place] coronary artery without angina pectoris Status: Chronic Assessment and Plan: continue aspirin, beta-krystal, nitroglycerin, statin (3) TAMIR on CPAP: Code(s): G47.33 - Obstructive sleep apnea (adult) (pediatric); Z99.89 - Dependence on other enabling machines and devices Status: Chronic Assessment and Plan: on CPAP (4) History of CVA (cerebrovascular accident): Code(s): Z86.73 - Personal history of transient ischemic attack (TIA), and cerebral infarction without residual deficits Status: Acute Assessment and Plan: aspirin, statin (5) Chronic anticoagulation: Code(s): Z79.01 - buttermaker (current) use of anticoagulants Status: Chronic Assessment and Plan: rivaroxaban will be put on hold for now in anticipation for possible cardiac catheterization. Patient be initiated on low-molecular weight heparin. History of Present Illness History of Present Illness Consult date/time: 01/15/21 08:12 DATE OF CONSULT: 01/15/2021 REASON FOR CONSULT: Chest pain REQUESTING PHYSICIAN:Jesus Finney MD CHIEF COMPLAINT: Chest pain HPI: 60-year-old male with CAD, history of PCI/drug eluting stenting of distal LCX and proximal LAD (September 11, 2014 and April 19, 2015 respectively), type 2 diabetes mellitus, obesity, TAMIR on CPAP, history of CVA. Patient was admitted to the hospital with complaints of chest discomfort that started 2 days ago. Patient states that he had sharp pain in the substernal area associated with the headache and some discomfort in the left arm associated with tingling. He had about 4 episodes of discomfort that lasted for several minutes in last 2 days. There were no relieving or aggravating factors. He denied any shortness of breath, palpitation, dizziness or syncope. EKG on presentation which I personally evaluated showed sinus rhythm, right bundle-branch block, no acute ST segment abnormality. No acute findings on the chest x-ray. Serial troponins are negative. At the time of evaluation today, patient denied ongoing chest pain but had symptoms of headache. Patient follows up with Dr. Willoughby for cardiovascular care. He has known coronary disease, and had PCI/drug-eluting stent placement of distal LCX on September 11, [address] Kwan. Patient subsequently had recurrent chest discomfort, and had FFR guided PCI/drug-eluting stent placement of proximal LAD on April 19, [address] Kwan. Since last PCI, patient states that he had coronary angiogram done at [facility]
[2021-01-15 08:17] LABS: Glucose Point of Care 186 mg/dl (65-105)
--- NOTE | 2021-01-15 08:43 | EST_ITS ---
Patient Info Name: Vini Zambrano Age: 60 years : 1960 Gender: Male Ht: 72 in Wt: 324 lbs BSA: 2.80 m2 Exam Date: 01/15/2021 12:28 PM Exam Location: [facility] Stress Patient Status: Outpatient Admit Date: 01/14/2021 Staff Ordering Physician: Ricky Palacios MD Attending Provider: Mansi Hodges MD Exercise Technologist: Yomaira Haney RDCS Exercise Physician: Husam Raymundo MD Exam Type: CA stress angelo w NM Study Info Indications R07.9 - Chest pain, unspecified A regadenoson stress test was performed. Summary 1. Please correlate with nuclear medicine images, reported separately. 2. No abnormal ST-T wave changes with lexiscan. Protocol: Lexiscan Stress ECG Details Stage: REST Duration (min): 15 min : 43 sec HR (bpm): 72 SBP (mmHg): 103 DBP (mmHg): 54 Stage: REST Duration (min): 15 min : 46 sec HR (bpm): 71 SBP (mmHg): 103 DBP (mmHg): 54 Stage: STAGE 1 Duration (min): 0 min : 59 sec HR (bpm): 79 SBP (mmHg): 110 DBP (mmHg): 55 Stage: RECOVERY Duration (min): 1 min : 0 sec HR (bpm): 71 SBP (mmHg): 110 DBP (mmHg): 55 Stage: RECOVERY Duration (min): 2 min : 0 sec HR (bpm): 77 SBP (mmHg): 153 DBP (mmHg): 69 Stage: RECOVERY Duration (min): 3 min : 0 sec HR (bpm): 77 SBP (mmHg): 153 DBP (mmHg): 69 Stage: RECOVERY Duration (min): 4 min : 0 sec HR (bpm): 78 SBP (mmHg): 153 DBP (mmHg): 69 Stage: RECOVERY Duration (min): 5 min : 0 sec HR (bpm): 77 SBP (mmHg): 114 DBP (mmHg): 79 Stage: RECOVERY Duration (min): 6 min : 0 sec HR (bpm): 78 SBP (mmHg): 114 DBP (mmHg): 79 Stage: RECOVERY Duration (min): 7 min : 0 sec HR (bpm): 79 SBP (mmHg): 121 DBP (mmHg): 80 Stage: RECOVERY Duration (min): 7 min : 16 sec HR (bpm): 78 SBP (mmHg): 121 DBP (mmHg): 80 Rest HR: 71 bpm Peak HR: 81 bpm Rest Sys BP: 103 mmHg Peak Sys BP: 153 mmHg Max Pred HR: 159 bpm % Max Pred HR: 51 % Target HR: 135 bpm Max RPP: 12,393 bpm*mmHg Target HR Summary: Hemodynamic response to exercise was normal BP Response: Normal blood pressure response Termination Reason: Completed protocol Cardiac Symptoms: None Total Time: 1 min : 0 sec Rest Ceja BP: 54 mmHg Peak Ceja BP: 69 mmHg Total Dose: 0.4 mg Resting ECG Normal sinus rhythm. Right bundle branch block. Stress ECG No abnormal ST/T wave changes with exercise. Arrhythmias None. Report Signatures
--- NOTE | 2021-01-15 11:10 | PM.IMPN ---
Progress Note: A&P Assessment and Plan (1) Chest pain: Qualifiers: Chest pain type: unspecified Qualified Code(s): R07.9 - Chest pain, unspecified Code(s): R07.9 - Chest pain, unspecified Status: Acute Assessment and Plan: Somewhat atypical for cardiac pain but given his history he is being admitted for closer monitoring. Troponins trend has been negative. Cardiology following and plan for stress test today. Continue beta-krystal, long-acting nitrate, and statin. (2) Hypertension: Code(s): I10 - Essential (primary) hypertension Status: Acute Assessment and Plan: Blood pressures were reviewed. Continue with his antihypertensives and monitor blood pressures closely as he may very well need adjustments in his dosing. (3) Obstructive sleep apnea on CPAP: Code(s): G47.33 - Obstructive sleep apnea (adult) (pediatric); Z99.89 - Dependence on other enabling machines and devices Status: Acute Assessment and Plan: A CPAP will be provided for the patient to use while hospitalized. (4) Type 2 diabetes mellitus: Qualifiers: Diabetes mellitus complication status: without complication Diabetes mellitus extermination inspector insulin use: without extermination inspector use Qualified Code(s): E11.9 - Type 2 diabetes mellitus without complications Code(s): E11.9 - Type 2 diabetes mellitus without complications Status: Chronic Assessment and Plan: Hold metformin while hospitalized. Continue Trulicity. Initiate sliding scale insulin, Accu-Cheks, and hypoglycemic protocol. (5) Chronic anticoagulation: Code(s): Z79.01 - FDC (current) use of anticoagulants Status: Chronic Assessment and Plan: Continue Xarelto. (6) Tobacco abuse: Code(s): Z72.0 - Tobacco use Status: Chronic Assessment and Plan: Smoking cessation is imperative in was discussed with the patient. He only smokes 3 to 4 cigarettes a day now ?as a habit, not because I crave them.? Unfortunately his roommate smokes as well. Subjective Date/time seen: 01/15/21 11:10 Interval history: HPI: This is a 60-year-old male with multiple medical problems including history of strokes, TIAs, type 2 diabetes mellitus, coronary artery disease, peripheral vascular disease, congestive heart failure, and several other comorbidities who presented to the emergency department earlier today from home for evaluation of chest pain. Last evening simply while sitting down watching television he developed a heaviness in the mid chest region which radiated through to the back and up into the neck, left shoulder, and even into the head. He felt perhaps a little bit short of breath with that as well. He took a nitroglycerin which did improve somewhat with nitroglycerin however that made his headache worse. He was able to retire to bed though he was wakened from sleep at 02:30 with similar discomfort for which he once again took nitroglycerin without a lot of benefit. Since receiving morphine in the emergency department his chest discomfort has improved quite a bit. He denies fever, chills, sweats, cold and flu symptoms, pleuritic pain, orthopnea, PND, vomiting, sweats, and edema. 01/14/2021 intermittent chest pain persists on the left precordium associated headache with it and previous to the left arm. Going for stress test this morning. Review of Systems Review of Systems: All systems reviewed & are unremarkable except as noted in HPI and below (HPI) Exam Narrative: General: Well-developed, well-nourished male sitting up in bed in no distress. HEENT: Wearing glasses. PERRL, EOMI. Sclerae anicteric. Oral mucosa moist. Oropharynx is crowded. Neck: Supple. No JVD. Respiratory: Respirations are even and nonlabored. Lungs are clear to auscultation bilaterally. Cardiovascular: Regular rate and rhythm with S1-S2. Chest: No tenderness to palpation over the chest wall. Gastrointestinal
[2021-01-15 13:40] LABS: Glucose Point of Care 174 mg/dl (65-105)
[2021-01-15] MEDS: amLODIPine BESYLATE 5 MG TABLET 10 MG PO (13:45)
[2021-01-15 17:16] LABS: Glucose Point of Care 174 mg/dl (65-105)
[2021-01-15 20:20] LABS: Glucose Point of Care 194 mg/dl (65-105)
--- NOTE | 2021-01-15 20:41 | PC.NURSE ---
[id number]- pt in nuclear med dept for Harjinder
[2021-01-15] MEDS: ENOXAPARIN 80 MG/0.8 ML SYRINGE 147 MG SUB-Q (21:32)
[2021-01-16] VITALS (10 sets, daily range): BP systolic 145–148; BP diastolic 77–89; PULSE 64–89; RESP 17–22; TEMP 36.4–36.6; O2SAT 95–100
[2021-01-16 09:27] LABS: Glucose Point of Care 129 mg/dl (65-105)
[2021-01-16] MEDS: ENOXAPARIN 80 MG/0.8 ML SYRINGE 147 MG SUB-Q (09:36)
[2021-01-16] MEDS: buPROPion HCL SR (12 HR) 150 MG TAB PO (09:37)
[2021-01-16] MEDS: ASPIRIN 81 MG CHEWABLE TABLET PO (09:37)
[2021-01-16] MEDS: amLODIPine BESYLATE 5 MG TABLET 10 MG PO (09:37)
[2021-01-16] MEDS: ISOSORBIDE MONONITRATE 30 MG TAB.ER.24H PO (09:38)
[2021-01-16] MEDS: ISOSORBIDE MONONITRATE 60 MG TAB.ER.24H PO (09:38)
[2021-01-16] MEDS: PANTOPRAZOLE 40 MG TABLET PO (09:38)
[2021-01-16] MEDS: carvediloL 25 MG TABLET PO (09:39)
--- NOTE | 2021-01-16 11:25 | PM.PNCARD ---
Progress Note: A&P Assessment and Plan (1) Chest pain: Qualifiers: Chest pain type: unspecified Qualified Code(s): R07.9 - Chest pain, unspecified Code(s): R07.9 - Chest pain, unspecified Status: Acute Assessment and Plan: 60-year-old male with CAD, history of PCI/drug eluting stenting of distal LCX and proximal LAD (September 11, 2014 and April 19, 2015 respectively), type 2 diabetes mellitus, obesity, TAMIR on CPAP, history of CVA. patient presented to the hospital with 2 day history of intermittent chest pain with features suggestive of angina. He has known CAD. EKG shows sinus rhythm, right bundle branch block, no acute ST segment abnormality. Serial troponins are negative. Stress test was normal. Will be discharged to home. I did talk to him about possibility of a false negative test. Obviously if he has recurrent chest pain that is worrisome then he should come back to the emergency room or call 911 for further workup and evaluation. He has an appointment to see Dr. Willoughby at 8:00 a.m. on February 04. He should keep that appointment Patient is okay for discharge cardiac perspective (2) CAD (coronary artery disease): Code(s): I25.10 - Atherosclerotic heart disease of [place] coronary artery without angina pectoris Status: Chronic Assessment and Plan: continue aspirin, beta-krystal, nitroglycerin, statin (3) TAMIR on CPAP: Code(s): G47.33 - Obstructive sleep apnea (adult) (pediatric); Z99.89 - Dependence on other enabling machines and devices Status: Chronic Assessment and Plan: on CPAP (4) History of CVA (cerebrovascular accident): Code(s): Z86.73 - Personal history of transient ischemic attack (TIA), and cerebral infarction without residual deficits Status: Acute Assessment and Plan: aspirin, statin (5) Chronic anticoagulation: Code(s): Z79.01 - medical terminologist (current) use of anticoagulants Status: Chronic Assessment and Plan: Discontinue enoxaparin. Rivaroxaban 2.5 mg p.o. b.i.d. is started. Subjective Date/time seen: 01/16/21 11:25 Interval history: HPI: This is a 60-year-old male with multiple medical problems including history of strokes, TIAs, type 2 diabetes mellitus, coronary artery disease, peripheral vascular disease, congestive heart failure, and several other comorbidities who presented to the emergency department earlier today from home for evaluation of chest pain. Last evening simply while sitting down watching television he developed a heaviness in the mid chest region which radiated through to the back and up into the neck, left shoulder, and even into the head. He felt perhaps a little bit short of breath with that as well. He took a nitroglycerin which did improve somewhat with nitroglycerin however that made his headache worse. He was able to retire to bed though he was wakened from sleep at 02:30 with similar discomfort for which he once again took nitroglycerin without a lot of benefit. Since receiving morphine in the emergency department his chest discomfort has improved quite a bit. He denies fever, chills, sweats, cold and flu symptoms, pleuritic pain, orthopnea, PND, vomiting, sweats, and edema. 01/14/2021 intermittent chest pain persists on the left precordium associated headache with it and previous to the left arm. Going for stress test this morning. Date of service 01/16/2021: No chest pain or shortness of breath. Stress test was normal. Review of Systems Review of Systems: All systems reviewed & are unremarkable except as noted in HPI and below Constitutional: Constitutional: Denies weakness Eyes: Eyes: Denies blurry vision ENT: Reports Normal hearing present Cardiovascular: Cardiovascular: Denies chest pain Respiratory: Respiratory: Denies dyspnea Gastrointestinal: Gastrointestinal: Denies abdominal pain Genitourinary: Genitourinary: Denies dysuria Musculoskeletal: Muscu
[2021-01-16 12:19] LABS: Glucose Point of Care 205 mg/dl (65-105)
--- NOTE | 2021-01-16 13:53 | PM.DS ---
DS: Admitting Diagnosis Discharge Date Discharge date: 01/16/2021 Admitting Diagnosis Chest pain DS: Discharge Diagnosis Discharge Diagnosis (1) Chest pain: Qualifiers: Chest pain type: unspecified Qualified Code(s): R07.9 - Chest pain, unspecified Code(s): R07.9 - Chest pain, unspecified Status: Acute Assessment and Plan: Somewhat atypical for cardiac pain but given his history he is being admitted for closer monitoring. Troponins trend has been negative. Cardiology consult and underwent stress test which came back normal. Cardiology cleared him to go home to follow-up with Dr. Roberts as an outpatient basis which is already scheduled on January. Continue beta-krystal, long-acting nitrate, and statin. (2) Hypertension: Code(s): I10 - Essential (primary) hypertension Status: Acute Assessment and Plan: Blood pressures were reviewed. Continue with his antihypertensives and monitor blood pressures closely as he may very well need adjustments in his dosing. (3) Obstructive sleep apnea on CPAP: Code(s): G47.33 - Obstructive sleep apnea (adult) (pediatric); Z99.89 - Dependence on other enabling machines and devices Status: Acute Assessment and Plan: A CPAP provided at the hospital will be continued at discharge (4) Type 2 diabetes mellitus: Qualifiers: Diabetes mellitus mcfp insulin use: without mcfp use Diabetes mellitus complication status: without complication Qualified Code(s): E11.9 - Type 2 diabetes mellitus without complications Code(s): E11.9 - Type 2 diabetes mellitus without complications Status: Chronic Assessment and Plan: Hold metformin while hospitalized. Continue Trulicity. Initiate sliding scale insulin, Accu-Cheks, and hypoglycemic protocol. Resume home medication at discharge (5) Chronic anticoagulation: Code(s): Z79.01 - slip feeder (current) use of anticoagulants Status: Chronic Assessment and Plan: Continue Xarelto. (6) Tobacco abuse: Code(s): Z72.0 - Tobacco use Status: Chronic Assessment and Plan: Smoking cessation is imperative in was discussed with the patient. He only smokes 3 to 4 cigarettes a day now ?as a habit, not because I crave them.? Unfortunately his roommate smokes as well. DS: Summary Hospital Course Hospital Course: See above Time Spent with Patient Time attestation: Total time spent providing and/or coordinating discharge services: 40 minutes Exam Narrative: General: Well-developed, well-nourished male sitting up in bed in no distress. HEENT: Wearing glasses. PERRL, EOMI. Sclerae anicteric. Oral mucosa moist. Oropharynx is crowded. Neck: Supple. No JVD. Respiratory: Respirations are even and nonlabored. Lungs are clear to auscultation bilaterally. Cardiovascular: Regular rate and rhythm with S1-S2. Chest: No tenderness to palpation over the chest wall. Gastrointestinal: Abdomen is soft, obese, nontender, and nondistended with positive bowel sounds. Skin: Warm and dry. No rash or lesions on limited exam. Extremities: No cyanosis or clubbing. Trace pretibial edema bilaterally. Radial and pedal pulses intact. Neurological: Alert. Cranial nerves 2-12 are grossly intact. Psychiatric: Pleasant and cooperative with normal mood and affect. DS: Data Data Completed and Pending Labs on day of discharge: Labs from last 24 hours 01/16/21 01/16/21 01/15/21 12:09 08:38 19:39 POC Capillary Glucose 205 H 129 H 194 H 01/15/21 15:47 POC Capillary Glucose 174 H Imaging Radiologist's impression: ITS Impressions Chest X-Ray 01/14/21 14:19 IMPRESSION: No active cardiopulmonary disease Lexiscan Stress Test 01/15/21 14:37 IMPRESSION: 1. No definite ischemia or infarct. 2. Normal left ventricular ejection fraction measuring 68%. Discharge Plan Discharge Attending ernie
== END 2021-01-16 14:53 | disposition home or self-care (01) ==
LOC: ANHED 13:59 → ANHIMU 23:37
PROVIDERS: Physician Assistant; Admitting Provider Family Medicine; Emergency Provider Emergency Medicine; PCP Registered Nurse; Visit Provider Internal Medicine
DX: R07.9 Chest pain, unspecified (principal); I25.10 Atherosclerotic heart disease of native coronary artery without angina pectoris; I50.9 Heart failure, unspecified; I11.0 Hypertensive heart disease with heart failure; R06.02 Shortness of breath; E11.51 Type 2 diabetes mellitus with diabetic peripheral angiopathy without gangrene; E66.9 Obesity, unspecified; F17.210 Nicotine dependence, cigarettes, uncomplicated; G47.33 Obstructive sleep apnea (adult) (pediatric); Z79.01 Long term (current) use of anticoagulants; Z86.73 Personal history of transient ischemic attack (TIA), and cerebral infarction without residual deficits; Z79.899 Other long term (current) drug therapy; Z79.84 Long term (current) use of oral hypoglycemic drugs; Z95.5 Presence of coronary angioplasty implant and graft; Z68.41 Body mass index [BMI] 40.0-44.9, adult
CPT/HCPCS: 36415; 71045; 78452; 80048; 80076; 82948; 83036; 84484; 85025; 85055; 85610; 85730; 93005; 93017; 94640; 96372; 96374; 96375; 99285; A9270; A9502; G0378; J1650; J2270; J2405; J2785

== ENCOUNTER 2021-01-27 12:52 | Emergency (ER) | payer MEDICARE, MEDICAID, SELFPAY ==
--- NOTE | ~2021-01-27 | CT_ITS ---
EXAMINATION: CT lumbar spine wo con DATE: 01/27/2021 13:41 INDICATION: Low back pain after fall TECHNIQUE: Computed tomography (CT) of the lumbar spine was performed without intravenous contrast. Amanda keane dose-length product (DLP) was 1300.23 mGy-cm. Iterative reconstruction was used. COMPARISON: 03/08/2018 FINDINGS: There is no fracture, dislocation, or subluxation. There is mild loss of intervertebral dis c space height throughout the lumbar spine. The vertebral body heights are normal. Small degenerative osteophytes project from the anterior endplates of multiple vertebral bodies. There is mild facet os teoarthritis of the lower lumbar spine. There is a partially imaged myelolipoma of the left adrenal g land. IMPRESSION: 1. Mild lumbar spondylosis without acute findings or significant interval change. Reviewed, dictated and finalized at location A. ER PULLER IMPRESSION: 1. Mild lumbar spondylosis without acute findings or significant interval rafa hanson
[2021-01-27 12:54] VITALS: BP 128/73; PULSE 74; RESP 16; TEMP 36.6; O2SAT 96
--- NOTE | 2021-01-27 13:14 | ED.FALL ---
HPI - Fall General Chief Complaint: Fall Stated Complaint: fall, back pain Time Seen by Provider: 01/27/21 13:02 Source: patient Mode of arrival: ambulatory Limitations: no limitations History of Present Illness HPI Narrative: Patient presents to the ED with lower back pain after a fall off a ladder, 4 feet above the ground landed on his bottom. Patient denies other injuries. Patient reports that the pain across the lumbar area radiating to both of the lower extremities. Patient denies patient denies bowel dysfunction, bladder dysfunction, altered sensation, focal weakness, or saddle numbness, Related Data Home Medications Medication Instructions Recorded Confirmed Trulicity 1.5 mg SUBCUT WEEKLY 01/24/19 01/14/21 Xarelto 2.5 mg PO BID 01/24/19 01/14/21 amlodipine 10 mg PO DAILY 01/24/19 01/14/21 bupropion HCl [Wellbutrin SR] 150 mg PO BID 01/24/19 01/14/21 doxazosin [Cardura] 2 mg PO HS 01/24/19 01/14/21 losartan [Cozaar] 100 mg PO HS 01/24/19 01/14/21 metformin 1,000 mg PO BID 01/24/19 01/14/21 omeprazole 40 mg capsule,delayed 40 mg PO DAILY 04/13/19 01/14/21 release carvedilol [Coreg] 25 mg PO BID 04/28/19 01/14/21 atorvastatin 80 mg PO HS 05/16/19 01/14/21 albuterol sulfate [Ventolin HFA] 1 puff INHALATION Q4-6H PRN 01/09/20 01/14/21 budesonide-formoterol [Symbicort] 1 puff INHALATION BID 01/09/20 01/14/21 isosorbide mononitrate 60 mg PO DAILY 01/09/20 01/14/21 isosorbide mononitrate 30 mg PO DAILY 03/15/20 01/14/21 loratadine [Claritin] 10 mg PO DAILY PRN MDD 2 03/15/20 01/14/21 oxybutynin chloride 5 mg PO BID PRN MDD 2 03/15/20 01/14/21 Allergies Allergy/AdvReac Type Severity Reaction Status Date / Time No Known Allergies Allergy Unknown Verified 01/27/21 13:24 Review of Systems Review of Systems: CONSTITUTIONAL: Denies fever, chills, or sweats. EYES: Denies visual changes, redness, or discharge. ENT: Denies rhinorrhea, congestion, sore throat, or otalgia. CARDIOVASCULAR: Denies chest pain, palpitations, or edema. RESPIRATORY: Denies cough or dyspnea. GASTROINTESTINAL: Denies abdominal pain, nausea, vomiting, or diarrhea. GENITOURINARY: Denies dysuria or hematuria. SKIN: Denies rash or itching. MUSCULOSKELETAL: Denies back pain, joint pain, or myalgia. NEUROLOGIC: Denies headache, numbness, or weakness. PSYCHIATRIC: Denies anxiety or depression. [facility] Past Medical History Medical History Anxiety Arthritis 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 Chronic anticoagulation Chronic obstructive pulmonary disease Congestive heart failure Coronary artery disease Deep venous thrombosis Depression Diabetic peripheral neuropathy Eczema Gastric ulcer Gastroesophageal reflux disease GI bleed Hearing loss Hyperlipidemia Hypertension Kidney stones Medial meniscus tear Myocardial infarction Nausea and vomiting Obstructive sleep apnea on CPAP Peripheral vascular disease Pneumonia Psoriasis Rectal polyp Seasonal allergies Transient ischemic attack Type 2 diabetes mellitus Surgical History Surgical History History of cardiac catheterization 2 stents History of cholecystectomy History of heart artery stent X2. History of lithotripsy History of loop recorder History of rectal polypectomy History of tonsillectomy Family History Family History Mother Diabetes mellitus Kidney stones Father Acute myocardial infarction Kidney stones Heart disease Sibling Heart disease Other Arthritis Hypertension Social History Social History Social History: Surrogate decision maker: Rena Dodd, friend. Code status: Full code. Smoking packs per day: 1 Smoking cigarettes per day: 20.0 Years smoked: 44 Smoking pack-years: 4
--- NOTE | 2021-01-27 13:32 | PC.NURSE ---
Pt to xray.
[2021-01-27] MEDS: IBUPROFEN 600 MG TABLET PO (13:41)
[2021-01-27] MEDS: HYDROcodone/acetaminophen (*CRX) 5-325 MG TABLET 1 TAB PO (13:41)
--- NOTE | 2021-01-27 14:28 | PC.NURSE ---
Patient's refusing to be discharged at this time due to no pain improvement and no pain pill prescription for home. EDP aware at this time.
== END 2021-01-27 14:52 | disposition home or self-care (01) ==
PROVIDERS: Emergency Provider Emergency Medicine; PCP Registered Nurse
DX: S39.92XA Unspecified injury of lower back, initial encounter (principal); E11.42 Type 2 diabetes mellitus with diabetic polyneuropathy; E11.51 Type 2 diabetes mellitus with diabetic peripheral angiopathy without gangrene; I25.10 Atherosclerotic heart disease of native coronary artery without angina pectoris; I50.9 Heart failure, unspecified; I11.0 Hypertensive heart disease with heart failure; I69.954 Hemiplegia and hemiparesis following unspecified cerebrovascular disease affecting left non-dominant side; I25.2 Old myocardial infarction; E78.5 Hyperlipidemia, unspecified; M19.90 Unspecified osteoarthritis, unspecified site; F32.A Depression, unspecified; F41.9 Anxiety disorder, unspecified; K21.9 Gastro-esophageal reflux disease without esophagitis; F17.210 Nicotine dependence, cigarettes, uncomplicated; Z87.442 Personal history of urinary calculi; Z87.440 Personal history of urinary (tract) infections; Z87.01 Personal history of pneumonia (recurrent); Z95.5 Presence of coronary angioplasty implant and graft; Z79.899 Other long term (current) drug therapy; Z79.84 Long term (current) use of oral hypoglycemic drugs; Z79.01 Long term (current) use of anticoagulants; Z86.718 Personal history of other venous thrombosis and embolism; Z87.19 Personal history of other diseases of the digestive system; M47.816 Spondylosis without myelopathy or radiculopathy, lumbar region; W11.XXXA Fall on and from ladder, initial encounter
CPT/HCPCS: 72131; 99284; A9270

== ENCOUNTER 2021-03-21 12:05 | Outpatient (CLI) | payer MEDICARE, MEDICAID, SELFPAY ==
--- NOTE | ~2021-03-21 | XR_ITS ---
EXAMINATION: XR abdomen/kub 1V INDICATION: Left-sided kidney stone TECHNIQUE: Supine views of the abdomen were obtained on 2 radiographs. COMPARISON: 08/29/2020 FINDINGS: No urolithiasis is identified. The bowel gas pattern is normal. There is calcified atherosc lerosis. Cholecystectomy clips are noted. IMPRESSION: 1. No urolithiasis identified. Reviewed, dictated and finalized at location F. RWRITING OPERATIONS MANAGER
== END 2021-03-21 12:06 | disposition home or self-care (01) ==
PROVIDERS: PCP Registered Nurse; Visit Provider Urology
DX: N20.0 Calculus of kidney (principal)
CPT/HCPCS: 74018

== ENCOUNTER 2021-03-28 11:32 | Outpatient (CLI) | payer MEDICARE, MEDICAID, SELFPAY ==
[2021-03-28 12:17] LABS: Anion Gap 11 mmol/L (8-16); Blood Urea Nitrogen 15 mg/dL (9-20); Calcium 9.2 mg/dL (8.4-10.2); Carbon Dioxide 23 mmol/L (22-30); Chloride 101 mmol/L (98-107); Estimated Glomerular Filt Rate > 60; Glucose 202 mg/dL (65-110); Potassium 4.3 mmol/L (3.4-5.0); Sodium 135 mmol/L (137-145)
[2021-03-28 12:22] LABS: Basophils Percent Auto 0.3 % (0.2-1.2); Eosinophils Absolute Auto 0.1 K/mm3 (0-0.3); Eosinophils Percent Auto 2.1 % (0-4.4); Hemoglobin 13.8 g/dL (14.0-18.0); Immature Granulocyte Absolute 0.02 K/mm3 (0.00-0.031); Immature Granulocyte Percent A 0.3 % (0-0.5); Immature Platelet Fraction Pct 5.5 % (0.9-11.2); Lymphocytes Absolute Auto 1.39 K/mm3 (0.9-3.2); Lymphocytes Percent Auto 22.1 % (18.3-44.2); Mean Corpuscular HGB Conc 34.5 g/dl (32-36); Mean Corpuscular Hemoglobin 30.8 pg (26-34); Mean Corpuscular Volume 89.3 fl (80-100); Mean Platelet Volume 10.8 fl (7.4-10.4); Monocytes Absolute Auto 0.6 K/mm3 (0.1-0.6); Monocytes Percent Auto 9.4 % (2.6-8.5); Neutrophils Absolute Auto 4.2 K/mm3 (1.3-6.7); Neutrophils Percent Auto 65.8 % (45.5-73.1); Platelet Count Result 128 k/mm3 (150-375); Red Blood Count 4.48 M/mm3 (4.6-6.20); Red Cell Distribution Width 13.5 % (11.5-14.5); White Blood Count 6.3 K/mm3 (4.5-10.0)
== END 2021-03-28 11:33 | disposition home or self-care (01) ==
PROVIDERS: PCP Registered Nurse; Visit Provider Internal Medicine Cardiovascular Disease
DX: Z01.812 Encounter for preprocedural laboratory examination (principal); I25.118 Atherosclerotic heart disease of native coronary artery with other forms of angina pectoris; R07.89 Other chest pain
CPT/HCPCS: 36415; 80048; 85025; 85055

== ENCOUNTER 2021-04-10 00:56 | Day surgery (SDC) | payer MEDICARE, MEDICAID, SELFPAY ==
[2021-04-09 12:55] VITALS: BMI 44.8
[2021-04-10] VITALS (8 sets, daily range): BP systolic 136–171; BP diastolic 82–104; PULSE 72–89; RESP 16–24; TEMP 36.5; O2SAT 94–98; BMI 44.5
[2021-04-10] MEDS: SODIUM CHLORIDE 0.9% IV 500 ML 100 ML IV CONT (07:30)
[2021-04-10 07:34] LABS: Basophils Percent Auto 0.3 % (0.2-1.2); Eosinophils Absolute Auto 0.1 K/mm3 (0-0.3); Eosinophils Percent Auto 1.7 % (0-4.4); Hematocrit 40.5 % (42.0-52.0); Immature Granulocyte Absolute 0.03 K/mm3 (0.00-0.031); Immature Granulocyte Percent A 0.4 % (0-0.5); Lymphocytes Absolute Auto 1.29 K/mm3 (0.9-3.2); Lymphocytes Percent Auto 17.2 % (18.3-44.2); Mean Corpuscular HGB Conc 34.6 g/dl (32-36); Mean Corpuscular Hemoglobin 30.6 pg (26-34); Mean Corpuscular Volume 88.6 fl (80-100); Mean Platelet Volume 11.1 fl (7.4-10.4); Monocytes Absolute Auto 0.7 K/mm3 (0.1-0.6); Monocytes Percent Auto 8.8 % (2.6-8.5); Neutrophils Absolute Auto 5.4 K/mm3 (1.3-6.7); Neutrophils Percent Auto 71.6 % (45.5-73.1); Platelet Count Result 132 k/mm3 (150-375); Red Blood Count 4.57 M/mm3 (4.6-6.20); Red Cell Distribution Width 13.5 % (11.5-14.5); White Blood Count 7.5 K/mm3 (4.5-10.0)
[2021-04-10 07:41] LABS: Prothrombin Time 13.1 Seconds (11.1-14.7)
[2021-04-10 07:42] LABS: Anion Gap 9 mmol/L (8-16); Blood Urea Nitrogen 17 mg/dL (9-20); Calcium 9.1 mg/dL (8.4-10.2); Carbon Dioxide 22 mmol/L (22-30); Chloride 104 mmol/L (98-107); Estimated CRCL calculation 114 ml/min; Estimated Glomerular Filt Rate > 60; Glucose 208 mg/dL (65-110); Potassium 4.2 mmol/L (3.4-5.0); Sodium 135 mmol/L (137-145)
--- NOTE | 2021-04-10 08:39 | WPDMODSED ---
Moderate Sedation Note-Pt Data Patient Data Diagnosis: Coronary artery disease with previous PCI to proximal LAD and distal circumflex recent acceleration and nitrate responsive chest pain morbid obesity Present Complaint: episodes of nitrate responsive chest pain occurring unpredictably Procedure to be performed/Plan: left heart catheterization Allergies Allergy/AdvReac Type Severity Reaction Status Date / Time No Known Allergies Allergy Unknown Verified 04/09/21 12:48 Home Medications Medication Instructions Recorded Confirmed Type Trulicity 1.5 mg SUBCUT WEEKLY 01/24/19 04/09/21 History Xarelto 2.5 mg PO BID 01/24/19 04/09/21 History amlodipine 10 mg PO DAILY 01/24/19 04/09/21 History bupropion HCl [Wellbutrin SR] 150 mg PO BID 01/24/19 04/09/21 History doxazosin [Cardura] 2 mg PO HS 01/24/19 04/09/21 History metformin 1,000 mg PO BID 01/24/19 04/09/21 History aspirin [Children's Aspirin] 81 mg PO DAILY@0800 #30 tablet 03/13/19 04/09/21 Rx omeprazole 40 mg capsule,delayed 40 mg PO DAILY 04/13/19 04/09/21 History release carvedilol [Coreg] 25 mg PO BID 04/28/19 04/09/21 History atorvastatin 80 mg PO HS 05/16/19 04/09/21 History albuterol sulfate [Ventolin HFA] 1 puff INHALATION Q4-6H PRN 01/09/20 04/09/21 History budesonide-formoterol [Symbicort] 1 puff INHALATION BID 01/09/20 04/09/21 History isosorbide mononitrate 60 mg PO DAILY 01/09/20 04/09/21 History isosorbide mononitrate 30 mg PO DAILY 03/15/20 04/09/21 History loratadine [Claritin] 10 mg PO DAILY PRN MDD 2 03/15/20 04/09/21 History oxybutynin chloride 5 mg PO BID PRN MDD 2 03/15/20 04/09/21 History acetaminophen 500 mg PO Q6H PRN #30 cap 04/19/20 04/09/21 Rx Current Medications: Active Medications Sodium Chloride (Normal Saline Iv) 500 mls @ 100 mls/hr IV CONT .Q5H BUZZ Last Admin: 04/10/21 07:30 Dose: 100 mls/hr Documented by: Sedation/Anesthesia: No previous sedation/anesthesia problems (including family history). [facility] Past Medical History Medical History Anxiety Arthritis 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 Chronic anticoagulation Chronic obstructive pulmonary disease Congestive heart failure Coronary artery disease Deep venous thrombosis Depression Diabetic peripheral neuropathy Eczema Gastric ulcer Gastroesophageal reflux disease GI bleed Hearing loss Hyperlipidemia Hypertension Kidney stones Medial meniscus tear Myocardial infarction Nausea and vomiting Obstructive sleep apnea on CPAP Peripheral vascular disease Pneumonia Psoriasis Rectal polyp Seasonal allergies Transient ischemic attack Type 2 diabetes mellitus Surgical History Surgical History History of cardiac catheterization 2 stents History of cholecystectomy History of heart artery stent X2. History of lithotripsy History of loop recorder History of rectal polypectomy History of tonsillectomy Family History Family History Mother Diabetes mellitus Kidney stones Father Acute myocardial infarction Kidney stones Heart disease Sibling Heart disease Other Arthritis Hypertension Social History Social History Social History: Surrogate decision maker: Rena Dodd, friend. Code status: Full code. Smoking packs per day: 1 Smoking cigarettes per day: 20.0 Years smoked: 44 Smoking pack-years: 44.00 Smoking status: Current every day smoker Tobacco type: cigarettes Second hand tobacco smoke exposure: No Additional smoking assessment comments: Patient states he smokes 3 to 4 cigarettes a day now. Alcohol intake: unknown Substance use: never Substance use type: does not use Living arrangements: with friend(s) Additional living arrangements comme
--- NOTE | 2021-04-10 09:10 | WPDCARDPROC ---
Cardiac Cath Procedure Note Date of procedure:: 04/10/21 Performing physician:: Todd Kwan MD Indication:: increasing nitrate responsive chest pain Brief clinical history:: this is a 60-year-old patient known to have coronary disease who has previously undergone stenting of his distal circumflex as well as his proximal LAD. He is known to have some small-vessel disease in the distal LAD, the 2nd diagonal as well as and 2 very small proximal marginal branches. He has been reporting symptoms of increasing nitrate responsive chest pain for the last couple of months which have been occurring somewhat unpredictably and a nocturnal fashion. To investigate this a follow-up angiogram has been recommended. Procedure Procedure performed:: Left ventriculogram coronary angiogram Angio-Seal to right femoral artery Sedation/Medication given:: no sedation case start time 8:47 a.m. case end time 906 Access site:: right femoral artery Estimated blood loss:: 15-20 cc Procedure note:: patient was brought to the cardiac catheterization lab in the postabsorptive state where the right femoral triangle was prepared and draped in the usual fashion. Anesthesia was provided with 1% lidocaine infiltrated locally. Using the modified Seldinger technique a 5 Faroese sheath was placed into the right common femoral artery. After this left heart catheterization was carried out. a 5 Faroese angled pigtail catheter was used to measure left-sided hemodynamics and to inject LV g in the 30 degree WHITEHEAD projection. After this a 5 Faroese FL4 catheter was used to engage and inject the left coronary artery in multiple projections. A 5 Faroese JR4 catheter was used to engage and inject the right coronary artery in orthogonal projections. After this an angiogram was done of the femoral artery through the sheath and Angio-Seal device was deployed at the puncture site with a good hemostatic result. There were no apparent procedural complications. 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 Findings:: Hemodynamics: Central aortic pressure is 150 over 84 left ventricle 1 58 over 4 end-diastolic pressure 18 there is no significant gradient on pullback across the aortic valve. Left ventricle: The LV normal in size. All segments of the contract appropriately the global ejection fraction I visually estimate to be 55%. The left main coronary artery is large in size and nicely patent the left anterior descending is a moderate caliber artery proximally its mid to distal portion becomes quite small. There is visible stent material in the proximal LAD which remains widely patent with no loss of lumen. The 1st diagonal branch looks normal. The 2nd diagonal branch which is quite small has moderate disease of 50-60% which is unchanged compared to angiogram 5 years ago. The apical distal portion of the LAD is quite small but with ENOCH 3 flow in it also angiographically unchanged from 5 years ago. The circumflex is a moderate caliber artery giving rise to the marginal branches and a posterior branch. The circumflex trunk is nicely patent with no stenosis stenosis. The distal portion of the circumflex trunk has visible stent material with no loss of lumen. The 1st 2 marginal branches are mildly diffusely diseased in angiographically are quite small. Angiographically unchanged from 5 years ago. The right coronary artery is large in caliber and dominant to the posterior circulation. The right coronary has mild diffuse luminal irregularities but no significant disease and angiographically also unchanged. Conclusion:: 1. Coronary artery disease was optimally revascularized with previous stents in the distal circumflex and proximal LAD which remain nicely patent 2. right coronary dominant circulation 3. small vessel disease in the 2nd diagonal branch of the LAD as well as in the 1st 2 marginal branches of the ci
== END 2021-04-10 12:45 | disposition home or self-care (01) ==
PROVIDERS: PCP Registered Nurse; Visit Provider Specialist
PROC: 4A023N7 Measurement of Cardiac Sampling and Pressure, Left Heart, Percutaneous Approach (ICD-10-PCS; CPT 93452; principal; 2021-04-10 08:30)
DX: I25.10 Atherosclerotic heart disease of native coronary artery without angina pectoris (principal); R07.9 Chest pain, unspecified; E11.43 Type 2 diabetes mellitus with diabetic autonomic (poly)neuropathy; I11.0 Hypertensive heart disease with heart failure; I50.9 Heart failure, unspecified; F41.8 Other specified anxiety disorders; I69.354 Hemiplegia and hemiparesis following cerebral infarction affecting left non-dominant side; E11.42 Type 2 diabetes mellitus with diabetic polyneuropathy; K21.9 Gastro-esophageal reflux disease without esophagitis; E78.5 Hyperlipidemia, unspecified; I25.2 Old myocardial infarction; G47.33 Obstructive sleep apnea (adult) (pediatric); E11.51 Type 2 diabetes mellitus with diabetic peripheral angiopathy without gangrene; L40.9 Psoriasis, unspecified; J44.9 Chronic obstructive pulmonary disease, unspecified; L30.9 Dermatitis, unspecified; Z95.5 Presence of coronary angioplasty implant and graft; Z87.11 Personal history of peptic ulcer disease; Z79.01 Long term (current) use of anticoagulants; Z79.84 Long term (current) use of oral hypoglycemic drugs; Z79.82 Long term (current) use of aspirin; F17.210 Nicotine dependence, cigarettes, uncomplicated
CPT/HCPCS: 36415; 80048; 85025; 85055; 85610; 93458; C1760; C1887; C1894; G0269; J1644; J7040

== ENCOUNTER 2021-05-22 10:00 | Observation (INO) | payer MEDICARE, MEDICAID, SELFPAY ==
[2021-05-22] VITALS (23 sets, daily range): BP systolic 118–177; BP diastolic 74–98; PULSE 66–88; RESP 12–23; TEMP 36.1–36.7; O2SAT 94–100; BMI 44.4
--- NOTE | ~2021-05-22 | XR_ITS ---
EXAMINATION: XR chest 2V DATE: 05/22/2021 10:26 INDICATION: Chest pressure and left arm pain TECHNIQUE: PA and lateral views of the chest were obtained. COMPARISON: Chest radiograph dated 01/14/2021 FINDINGS: No significant change in mild lingular atelectasis/scarring along side a left paracardial fat pad. No new airspace opacities, pulmonary edema, pleural effusion or pneumothorax. The cardiomediastinal cameron houette is normal. Left pectoral implantable monitoring and evaluation advisor. There are bridging osteophytes at multi ple levels in the spine, consistent with diffuse idiopathic skeletal hyperostosis (DISH). IMPRESSION: 1. No acute cardiopulmonary disease. Reviewed, dictated and finalized at location A.
--- NOTE | ~2021-05-22 | CT_ITS ---
EXAMINATION: CTA chest PE protocol DATE: 05/22/2021 11:49 CDT INDICATION: Chest pain and an elevated d-dimer. TECHNIQUE: Computed tomographic angiography (CTA) of the chest was performed with 100 mL Omnipaque-35 0 intravenous contrast. The dose-length product was 963.93 mGy-cm. Maximum intensity projection 3D-re constructions of the aorta and other arteries were constructed by the technologist on a separate work station. COMPARISON: CT dated 10/08/2018. FINDINGS: Study is technically adequate without evidence for pulmonary embolism. Trace left pleural e ffusion. Heart size normal. There is mild atherosclerosis of the aorta without evidence for aneurysm or dissection. No thoracic lymphadenopathy. No pericardial effusion. There are bilateral adrenal myel olipomas. There is dependent atelectasis. No suspicious pulmonary nodules or masses. No endobronchial lesions. IMPRESSION: 1. No evidence for pulmonary embolism. 2: Chronic small left pleural effusion. Dependent atelectasis. Reviewed, dictated and finalized at location A.
--- NOTE | 2021-05-22 10:14 | ECG_ITS ---
Measurements Intervals [place] Rate: 72 P: 26 [place]: 150 QRS: 30 QRSD: 146 T: 15 QT: 421 QTc: 463 Interpretive Statements SINUS RHYTHM RIGHT BUNDLE BRANCH BLOCK [120+ ms QRS DURATION, UPRIGHT V1, 40+ ms S IN I/aVL/V4/V5/V6] ABNORMAL ECG COMPARED TO ECG 01/15/2021 07:47:10 NO SIGNIFICANT CHANGES Electronically Signed On 05-22-2021 14:10:39 CDT by Husam Raymundo M.D.
[2021-05-22] MEDS: ASPIRIN 81 MG CHEWABLE TABLET 324 MG PO (10:20)
--- NOTE | 2021-05-22 10:45 | ED.CHESTPAIN ---
HPI - Chest Pain General Chief Complaint: Chest Pain Stated Complaint: Chest Pain Time Seen by Provider: 05/22/21 10:16 History of Present Illness HPI narrative: 61 y/o male presents to the ER today for recurrent chest pain. He says that he had an episod of chest pain at 4am this morning. He took a nitro and it relieved. He says that the pain started again at 8am and he took nitro but it did not relieve so he came to the ER by POV. He says that he continues to have chest pain now. It started to ease up while in exam room but is coming back again and is now 8/10. He describes it as a heaviness and radiates into the left shoulder and feels a lot of pressure in his head as well. He reports feeling short of breath this morning at rest. He denies any fever or chills. No cough or chest congestion. No dizziness. No abd pain. No n/v/d. No back pain. His blood pressure is elevated as well. He has a history of this recurrent chest pain. 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 No new stents placed. He has also had a recent stress test that was okay. He has significant cardiac history as well as multiple other chronic health conditions. He is morbidly obese. He has had full dose of aspirin this morning. Related Data Home Medications Medication Instructions Recorded Confirmed Trulicity 1.5 mg SUBCUT WEEKLY 01/24/19 04/09/21 Xarelto 2.5 mg PO BID 01/24/19 04/09/21 amlodipine 10 mg PO DAILY 01/24/19 04/09/21 bupropion HCl [Wellbutrin SR] 150 mg PO BID 01/24/19 04/09/21 doxazosin [Cardura] 2 mg PO HS 01/24/19 04/09/21 metformin 1,000 mg PO BID 01/24/19 04/09/21 omeprazole 40 mg capsule,delayed 40 mg PO DAILY 04/13/19 04/09/21 release carvedilol [Coreg] 25 mg PO BID 04/28/19 04/09/21 atorvastatin 80 mg PO HS 05/16/19 04/09/21 albuterol sulfate [Ventolin HFA] 1 puff INHALATION Q4-6H PRN 01/09/20 04/09/21 budesonide-formoterol [Symbicort] 1 puff INHALATION BID 01/09/20 04/09/21 isosorbide mononitrate 60 mg PO DAILY 01/09/20 04/09/21 isosorbide mononitrate 30 mg PO DAILY 03/15/20 04/09/21 loratadine [Claritin] 10 mg PO DAILY PRN MDD 2 03/15/20 04/09/21 oxybutynin chloride 5 mg PO BID PRN MDD 2 03/15/20 04/09/21 Allergies Allergy/AdvReac Type Severity Reaction Status Date / Time No Known Allergies Allergy Unknown Verified 05/22/21 10:09 Review of Systems Constitutional: Constitutional: Denies chills, Denies fatigue, Denies fever(s) and Denies weakness Eyes: Eyes: Denies change in vision ENT: Denies vertigo and Denies sore throat Cardiovascular: Cardiovascular: Reports chest pain and Reports radiating jaw, neck or arm pain Respiratory: Respiratory: Denies chest congestion, Denies cough, Reports dyspnea and Denies wheezing Gastrointestinal: Gastrointestinal: Denies abdominal pain, Denies diarrhea, Denies nausea and Denies vomiting Genitourinary: Genitourinary: Denies dysuria Musculoskeletal: Musculoskeletal: Denies back pain and Denies myalgias Integumentary/Breasts: Skin/Breast: Reports system reviewed and no additional complaints, except as docu Neurologic: Denies dizziness, Reports headache(s) and Denies numbness Psychiatric: Psychiatric: Denies anxiety Endocrine: Endocrine: Denies excessive sweating, Denies fatigue, Denies polydipsia and Denies polyuria Hematologic/Lymphatic: Hematologic/Lymphatic: Denies easy bleeding and Denies easy bruising Allergic/Immunologic: Allergic/Immunologic: Reports no additional allergic/immunologic complaints PMFSH Past Medical History Medical History Anxiety Arthritis 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 Chronic anticoagulation Chronic obstructive pulmonary disease Congestive heart failure Coronary artery disease Deep venous thrombosis Depression Diabetic peripheral neuropathy Eczema Gastric ulcer Gastroesophageal reflux disease GI bleed He
[2021-05-22] MEDS: ONDANSETRON INJ 4 MG/2 ML VIAL IV PUSH (11:09)
[2021-05-22] MEDS: NITROGLYCERIN OINTMENT 1 INCH DOSE TRANSDERM (11:09)
[2021-05-22] MEDS: MORPHINE SULFATE (*CRX) 4 MG/ML INJ IV PUSH (11:09)
[2021-05-22 11:13] LABS: Basophils Percent Auto 0.2 % (0.2-1.2); Eosinophils Absolute Auto 0.1 K/mm3 (0-0.3); Eosinophils Percent Auto 1.4 % (0-4.4); Hematocrit 43.4 % (42.0-52.0); Hemoglobin 14.9 g/dL (14.0-18.0); Immature Granulocyte Absolute 0.01 K/mm3 (0.00-0.031); Immature Granulocyte Percent A 0.2 % (0-0.5); Immature Platelet Fraction Pct 6.9 % (0.9-11.2); Lymphocytes Absolute Auto 1.24 K/mm3 (0.9-3.2); Lymphocytes Percent Auto 19.5 % (18.3-44.2); Mean Corpuscular HGB Conc 34.3 g/dl (32-36); Mean Corpuscular Hemoglobin 30.5 pg (26-34); Mean Corpuscular Volume 88.9 fl (80-100); Mean Platelet Volume 10.9 fl (7.4-10.4); Monocytes Absolute Auto 0.5 K/mm3 (0.1-0.6); Monocytes Percent Auto 8.3 % (2.6-8.5); Neutrophils Absolute Auto 4.5 K/mm3 (1.3-6.7); Neutrophils Percent Auto 70.4 % (45.5-73.1); Platelet Count Result 146 k/mm3 (150-375); Red Blood Count 4.88 M/mm3 (4.6-6.20); Red Cell Distribution Width 13.3 % (11.5-14.5); White Blood Count 6.4 K/mm3 (4.5-10.0)
[2021-05-22 11:21] LABS: Alanine Aminotransferase 40 U/L (4-50); Albumin Level 4.5 g/dL (3.5-5.1); Alkaline Phosphatase 77 U/L (38-126); Anion Gap 8 mmol/L (8-16); Aspartate Amino Transferase 40 U/L (17-59); Bilirubin,Total 0.5 mg/dL (0.2-1.3); Blood Urea Nitrogen 17 mg/dL (9-20); Calcium 9.3 mg/dL (8.4-10.2); Carbon Dioxide 27 mmol/L (22-30); Chloride 102 mmol/L (98-107); Estimated CRCL calculation 111 ml/min; Estimated Glomerular Filt Rate > 60; Glucose 175 mg/dL (65-110); Lipase 240 U/L (23-300); Potassium 4.6 mmol/L (3.4-5.0); Sodium 137 mmol/L (137-145)
[2021-05-22 11:24] LABS: Partial Thromboplastin Time 25.8 SECONDS (22.3-36.8); Prothrombin Time 13.2 Seconds (11.1-14.7)
[2021-05-22 11:25] LABS: D Dimer 0.77 ug/mL (<0.48)
[2021-05-22 11:33] LABS: Troponin I < 0.012 ng/mL (0.000-0.034)
[2021-05-22 11:36] LABS: NT Pro B Type Natriuretic Pept 89 pg/mL (5-100)
[2021-05-22 14:07] LABS: Troponin I < 0.012 ng/mL (0.000-0.034)
--- NOTE | 2021-05-22 14:24 | ADMGEN ---
This patient, Vini Zambrano, was admitted to IMU Room 212-01 at 1422 on 05/22/2021. Report received from Josué YOON. Patient/family oriented to hospital policies and general routines including ID bracelet, bed and alarms, visiting hours, pain management, procedures, bathroom and other care routines, personal items, smoking policy, room service/diet, and visiting hours. Information on how to activate the Rapid Response Team has been discussed. Patient/Family are encouraged to report perceived risks to care and to ask questions if they do not understand what they are told or what they should do.
--- NOTE | 2021-05-22 15:00 | PM.IMHP ---
H&P: HPI History of Present Illness Date/Time: 05/22/21 15:00 Chief Complaint: Chest pain. Narrative: This is a pleasant 61-year-old male with multiple medical problems including history of stroke, diabetes, coronary artery disease, peripheral vascular disease, congestive heart failure, and several other comorbidities who presented to the emergency department for evaluation of chest pain. At 04:00 he got up to use the restroom and while walking back to bed he developed a squeezing discomfort in the substernal region radiating to his left arm and to the back of his neck and head. He felt slightly nauseated, dizzy, and short of breath with this discomfort as well. Sublingual nitroglycerin x1 improved the pain significantly and he was able to fall back asleep. Unfortunately the pain has required several times this morning and he came in for evaluation. His troponins have thus far been negative and his EKG showed no significant changes when compared to prior tracings. It should be noted that his last cardiac catheterization was on 04/10/[address] Kwan noted that he was optimally revascularized with previous stents in the distal circumflex and proximal LAD which remained nicely patent. He had small-vessel disease in the 2nd diagonal branch of the LAD as well as the 1st 2 marginal branches of the circumflex which were angiographically unchanged; these vessels are/were to small to be suitable for revascularization and medical management has been pursued. At the time my evaluation he has no significant complaints and is not having much discomfort. Review of Systems Review of Systems: Twelve systems were reviewed. No fever, chills, or sweats. No recent cold or flu symptoms. No pleuritic pain or palpitations. No significant orthopnea, paroxysmal nocturnal dyspnea, or edema. Except as documented, all other systems were reviewed and are negative. 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 Chronic anticoagulation Chronic obstructive pulmonary disease Congestive heart failure Coronary artery disease Deep venous thrombosis Depression Diabetic peripheral neuropathy Eczema Gastric ulcer Gastroesophageal reflux disease GI bleed Hearing loss Hyperlipidemia Hypertension Kidney stones Medial meniscus tear Myocardial infarction Nausea and vomiting Obstructive sleep apnea on CPAP Peripheral vascular disease Pneumonia Psoriasis Rectal polyp Seasonal allergies Transient ischemic attack Type 2 diabetes mellitus Surgical History Surgical History History of cardiac catheterization 2 stents History of cholecystectomy History of heart artery stent X2. History of lithotripsy History of loop recorder History of rectal polypectomy History of tonsillectomy Family History Family History Mother Diabetes mellitus Kidney stones Father Acute myocardial infarction Kidney stones Heart disease Sibling Heart disease Other Arthritis Hypertension Social History Social History Social History: Surrogate decision maker: Rena Dodd, friend. Code status: Full code. Smoking packs per day: 0.25 Smoking cigarettes per day: 5.0 Years smoked: 44 Smoking pack-years: 11.00 Smoking status: Current every day smoker Tobacco type: cigarettes Second hand tobacco smoke exposure: No Alcohol intake: unknown Substance use: never Substance use type: does not use Additional living arrangements comments: The patient lives in [place] with a roommate. He has no children. Additional occupation/education comments: Disabled. Spiritual care concerns: No
[2021-05-22 16:50] LABS: Troponin I < 0.012 ng/mL (0.000-0.034)
[2021-05-22 17:02] LABS: Glucose Point of Care 240 mg/dl (65-105)
[2021-05-22 20:21] LABS: Glucose Point of Care 194 mg/dl (65-105)
[2021-05-22] MEDS: ALPRAZolam (*CRX) 0.25 MG TABLET PO (20:39)
[2021-05-22] MEDS: buPROPion HCL SR (12 HR) 150 MG TAB PO (23:37)
[2021-05-22] MEDS: DOXAZOSIN MESYLATE 2 MG TABLET PO (23:38)
[2021-05-22] MEDS: RIVAROXABAN 2.5 MG TABLET PO (23:38)
[2021-05-22] MEDS: ATORVASTATIN 40 MG TABLET 80 MG PO (23:38)
[2021-05-23] VITALS (10 sets, daily range): BP systolic 134–145; BP diastolic 62–98; PULSE 65–86; RESP 20–26; TEMP 36.1–36.6; O2SAT 95–98
[2021-05-23] MEDS: FLUTICASONE/SALMETEROL 115-21 MCG INHALER 1 PUFF 2 PUFF INHALATION (08:40)
[2021-05-23] MEDS: amLODIPine BESYLATE 5 MG TABLET 10 MG PO (09:12)
[2021-05-23] MEDS: RIVAROXABAN 2.5 MG TABLET PO (09:13)
[2021-05-23] MEDS: carvediloL 25 MG TABLET PO (09:15)
[2021-05-23] MEDS: ISOSORBIDE MONONITRATE 60 MG TAB.ER.24H PO (09:15)
[2021-05-23] MEDS: buPROPion HCL SR (12 HR) 150 MG TAB PO (09:16)
[2021-05-23] MEDS: ALPRAZolam (*CRX) 0.25 MG TABLET PO (09:21)
--- NOTE | 2021-05-23 09:51 | PM.CNCAR ---
Assessment and Plan Additional Plan -chest pain -elevated blood pressure on admission now controlled -history of CAD in small vessels -diabetes -morbid obesity -and anxiety This 61-year-old patient who was admitted with chest pain. Troponins negative, no ischemic changes on EKG and no events on telemetry. Pulmonary embolism was ruled out. Patient had coronary angiogram a month ago that shows patent stent in LAD and distal left circumflex artery. There is small diagonal 2 branch and small OM branches that has moderate disease but unchanged from cardiac catheterization 5 years ago. Patient thinks that he has lately has been anxious and Xanax helped his anxiety. -I recommend that patient checks his blood pressures when he 1st wakes up in the morning and keep a log. -will arrange for follow-up with Dr. Willoughby within the next 2-3 weeks. -should be stable to be discharged home from cardiac standpoint. History of Present Illness History of Present Illness Consult date/time: date of service 05/23/21 09:51 Requesting physician: Lien Hansen APRN Consult reason: chest pain Reason For Visit: Chest Pain Narrative: This 61-year-old patient with past history of hypertension, hyperlipidemia, diabetes, around to have proximal LAD stent, distal left circumflex artery stent who underwent coronary angiogram April 2021 that showed patent stents in the LAD and the left circumflex artery. There was 50-60% and small diagonal 2 branch unchanged from cardiac catheterization 5 years ago and diffuse disease in small OM branch is unchanged from previous cardiac catheterization. RCA looked unremarkable and was dominant. Systolic blood pressures on admission in the 160s range. He stated that woke up at 5:00 a.m. to go to the bathroom and when he came back he started to feel a central chest pressure radiating to his head and left arm. He took nitroglycerin and that relieved the pain. Associated with shortness of breath but denies lower extremity edema, dizziness, syncope, orthopnea paroxysmal nocturnal dyspnea, cough. He mentions that his blood pressures goes high when he gets pain in his chest. He thinks that lately he has been more anxious regarding how the world is going. He received some Xanax and he thinks he is much calmer now and happier. Apparently lately he was started on bupropion by his primary care physician Troponins x3 negative, brain atretic peptide is 89, normal creatinine and normal hemoglobin. CTA thorax ruled out pulmonary embolism and shows tiny left pleural effusion and bilateral adrenal myelolipoma EKG reviewed analyze myself shows sinus rhythm, right bundle branch block. No active ischemia. Review of Systems Constitutional: Constitutional: Denies chills, Denies fever(s) and Denies poor appetite Eyes: Eyes: Denies eye discharge, Denies loss of vision, Denies eye pain and Denies photophobia ENT: Denies dizziness, Denies epistaxis, Denies nasal congestion and Denies sore throat Cardiovascular: Cardiovascular: Reports chest pain, Denies syncope, Denies pedal edema, Denies leg edema, Denies palpitations, Denies dyspnea, Denies dyspnea on exertion and Denies orthopnea Respiratory: Respiratory: Denies cough, Denies dyspnea, Denies dyspnea on exertion and Denies wheezing Gastrointestinal: Gastrointestinal: Denies abdominal pain, Denies diarrhea, Denies nausea and Denies vomiting Genitourinary: Genitourinary: Denies hematuria, Denies genital lesions and Denies dysuria Musculoskeletal: Musculoskeletal: Denies arthralgias, Denies joint swelling and Denies numbness Integumentary/Breasts: Skin/Breast: Denies pruritus and Denies rash Neurologic: Denies dizziness, Denies syncope, Denies loss of vision and Denies numbness Psychiatric: Psychiatric: Reports anxiety and Denies depression Endocrine: Endocrine: Denies cold intolerance, Denies heat intolerance and Denies palpitations Hematologic/Lymphatic: Hematologic/Lymphatic: Denies easy
[2021-05-23 12:04] LABS: Glucose Point of Care 208 mg/dl (65-105)
[2021-05-23 12:04] LABS: Glucose Point of Care 157 mg/dl (65-105)
[2021-05-23] MEDS: ASPIRIN 81 MG CHEWABLE TABLET PO (12:04)
[2021-05-23] MEDS: PANTOPRAZOLE 40 MG TABLET PO (12:05)
[2021-05-23] MEDS: INSULIN ASPART (*BKC) 100 UNITS/ML SUB-Q (12:05)
--- NOTE | 2021-05-23 13:24 | PM.DS ---
DS: Admitting Diagnosis Discharge Date 05/23/2021 Admitting Diagnosis Chest pain DS: Discharge Diagnosis Discharge Diagnosis (1) Chest pain: Qualifiers: Chest pain type: unspecified Qualified Code(s): R07.9 - Chest pain, unspecified Code(s): R07.9 - Chest pain, unspecified Status: Acute Assessment and Plan: Unclear etiology. Possible anxiety attack/panic attack. Cardiac catheterization in early April 2021 showed patent stents with small-vessel disease not amenable to revascularization. He is on optimum medical therapy. Cardiology was consulted and recommendations reviewed. Will continue to follow with Cardiology as an outpatient basis. His already on long acting nitrate at home. Continue aspirin statin and beta-krystal (2) Hypertension: Code(s): I10 - Essential (primary) hypertension Status: Acute Assessment and Plan: Blood pressure monitored during throughout the hospital stay and resume home medication at discharge (3) Obstructive sleep apnea on CPAP: Code(s): G47.33 - Obstructive sleep apnea (adult) (pediatric); Z99.89 - Dependence on other enabling machines and devices Status: Acute Assessment and Plan: CPAP will be provided for the patient to use while hospitalized. (4) Type 2 diabetes mellitus: Qualifiers: Diabetes mellitus long term care phlebotomist insulin use: without long term care phlebotomist use Diabetes mellitus complication status: without complication Qualified Code(s): E11.9 - Type 2 diabetes mellitus without complications Code(s): E11.9 - Type 2 diabetes mellitus without complications Status: Chronic Assessment and Plan: Hold metformin while hospitalized. Initiate sliding scale insulin, Accu-Cheks, and hypoglycemic protocol. Resume home medication at discharge as per protocol (5) Chronic anticoagulation: Code(s): Z79.01 - continuous churn buttermaker (current) use of anticoagulants Status: Chronic Assessment and Plan: Continue Xarelto. (6) Tobacco abuse: Code(s): Z72.0 - Tobacco use Status: Chronic Assessment and Plan: Smoking cessation is encouraged and was discussed. (7) Anxiety: Code(s): F41.9 - Anxiety disorder, unspecified Status: Chronic Assessment and Plan: Patient reports history of anxiety and depression. He was recently started on escitalopram as an outpatient basis a week ago. However due to constipation he stopped the medication. Have recommended him to discuss treatment with his primary care physician. Will put him on Vistaril p.r.n. for anxiety attacks for now. Also provided Xanax p.r.n. for now and to discuss further long-term implications for long-term use such as dependence and respiratory depression. Discussed long-term complication with benzodiazepines with the patient (8) Depression: Code(s): F32.9 - Major depressive disorder, single episode, unspecified Status: Chronic Assessment and Plan: No suicidal or homicidal ideation. This is been an ongoing issue long-term and was recently started on escitalopram by his primary care physician DS: Summary Hospital Course Hospital Course: See above Time Spent with Patient Time attestation: Total time spent providing and/or coordinating discharge services: 45 minutes Exam Narrative: General: Well-developed male sitting up in bed no distress. HEENT: Wearing glasses. PERRL, EOMI. Sclerae anicteric. Oral mucosa moist. Oropharynx is crowded and poorly visualized. Neck: Supple. No jugular venous distention. Respiratory: Respirations are even and nonlabored. Clear to auscultation. Cardiovascular: Regular rate and rhythm with S1-S2. Chest: No tenderness to palpation over the chest wall. Gastrointestinal: Abdomen is soft, obese, nontender, and nondistended with positive bowel sounds. Skin: Warm and dry. No rash or lesions on limited exam. Extremities: No cyanosis, clubbing, or sign
--- NOTE | 2021-05-23 14:01 | PC.NURSE ---
1400-discharge information reviewed with pt. questions answered.
== END 2021-05-23 14:14 | disposition home or self-care (01) ==
LOC: ANHED 13:33 → ANHIMU 13:41
PROVIDERS: Emergency Medicine; Admitting Provider Family Medicine; Emergency Provider Nurse Practitioner Family; PCP Registered Nurse; Visit Provider Internal Medicine
DX: R07.9 Chest pain, unspecified (principal); I25.10 Atherosclerotic heart disease of native coronary artery without angina pectoris; I11.0 Hypertensive heart disease with heart failure; I50.9 Heart failure, unspecified; I69.354 Hemiplegia and hemiparesis following cerebral infarction affecting left non-dominant side; J44.9 Chronic obstructive pulmonary disease, unspecified; E11.51 Type 2 diabetes mellitus with diabetic peripheral angiopathy without gangrene; E78.5 Hyperlipidemia, unspecified; E11.42 Type 2 diabetes mellitus with diabetic polyneuropathy; K21.9 Gastro-esophageal reflux disease without esophagitis; L30.9 Dermatitis, unspecified; I25.2 Old myocardial infarction; M19.90 Unspecified osteoarthritis, unspecified site; G47.33 Obstructive sleep apnea (adult) (pediatric); F17.210 Nicotine dependence, cigarettes, uncomplicated; F32.A Depression, unspecified; F45.8 Other somatoform disorders; F41.9 Anxiety disorder, unspecified; Z87.442 Personal history of urinary calculi; Z79.01 Long term (current) use of anticoagulants; Z86.718 Personal history of other venous thrombosis and embolism; Z95.5 Presence of coronary angioplasty implant and graft
CPT/HCPCS: 36415; 71046; 71275; 80053; 82948; 83690; 83880; 84484; 85025; 85055; 85380; 85610; 85730; 93005; 94640; 96374; 96375; 99285; A9270; G0378; J1815; J2270; J2405; Q9967

== ENCOUNTER 2021-06-08 19:52 | Emergency (ER) | payer MEDICARE, MEDICAID, SELFPAY ==
--- NOTE | ~2021-06-08 | XR_ITS ---
EXAMINATION: XR chest 1V portable Exam Date/Time: 06/08/2021 20:13 CDT CLINICAL HISTORY: cp,cough,n/v, covid+ since thursday hx chf,cad,copd,stents Comparison: 05/22/2021 RESULT: Lines, tubes, and devices: Loop recorder. Lungs and pleura: Clear. Cardiomediastinal silhouette: Stable cardiomediastinal silhouette. Other: No acute osseous or upper abdominal finding. IMPRESSION: No acute cardiopulmonary process. Reviewed, dictated and finalized at location K.
--- NOTE | ~2021-06-08 | CT_ITS ---
EXAMINATION: CTA chest PE protocol DATE: 06/08/2021 20:42 INDICATION: CP, covid, SOB TECHNIQUE: Computed tomography angiography (CTA) of the chest was performed with 100 mL Omnipaque-350 intravenous contrast timed to evaluate the pulmonary arteries. Coronal maximum intensity projection 3D-reconstructions were created by the technologist. The dose-length product (DLP) was 1138.08 mGy-cm . Automated exposure control and iterative reconstruction technique were employed. COMPARISON: 05/22/2021. FINDINGS: Study quality: Adequate Pulmonary arteries: No pulmonary emboli detected. Thoracic aorta: Mild atherosclerosis. Lung parenchyma and airways: Clear. Thoracic inlet, axillae and chest wall: Unremarkable. Mediastinum: Normal. Heart and pericardium: Normal. Coronary artery calcifications: Mild. Pleura: Stable trace left effusion. Upper abdomen: Bilateral moderate perinephric stranding. Bilateral adrenal myelolipoma is. Bones: No acute osseous finding. IMPRESSION: No CT evidence of pulmonary embolism. Reviewed, dictated and finalized at location K.
--- NOTE | 2021-06-08 19:54 | ECG_ITS ---
Measurements Intervals [place] Rate: 91 P: 10 [place]: 144 QRS: 22 QRSD: 157 T: 26 QT: 396 QTc: 489 Interpretive Statements SINUS RHYTHM RIGHT BUNDLE BRANCH BLOCK [120+ ms QRS DURATION, UPRIGHT V1, 40+ ms S IN I/aVL/V4/V5/V6] COMPARED TO ECG 05/22/2021 10:06:04 NO SIGNIFICANT CHANGES Electronically Signed On 06-09-2021 6:57:14 CDT by Peyton Kirkland M.D.
[2021-06-08 20:08] VITALS: BP 153/90; PULSE 90; RESP 19; O2SAT 97
[2021-06-08 20:12] LABS: Basophils Percent Auto 0.2 % (0.2-1.2); Eosinophils Percent Auto 0.7 % (0-4.4); Hematocrit 41.3 % (42.0-52.0); Hemoglobin 14.2 g/dL (14.0-18.0); Immature Granulocyte Absolute 0.01 K/mm3 (0.00-0.031); Immature Granulocyte Percent A 0.2 % (0-0.5); Immature Platelet Fraction Pct 8.1 % (0.9-11.2); Lymphocytes Absolute Auto 0.76 K/mm3 (0.9-3.2); Lymphocytes Percent Auto 13.1 % (18.3-44.2); Mean Corpuscular HGB Conc 34.4 g/dl (32-36); Mean Corpuscular Hemoglobin 30.6 pg (26-34); Monocytes Absolute Auto 0.6 K/mm3 (0.1-0.6); Monocytes Percent Auto 11.1 % (2.6-8.5); Neutrophils Absolute Auto 4.3 K/mm3 (1.3-6.7); Neutrophils Percent Auto 74.7 % (45.5-73.1); Platelet Count Result 121 k/mm3 (150-375); Red Blood Count 4.64 M/mm3 (4.6-6.20); Red Cell Distribution Width 13.5 % (11.5-14.5); White Blood Count 5.8 K/mm3 (4.5-10.0)
--- NOTE | 2021-06-08 20:16 | ED.CHESTPAIN ---
HPI - Chest Pain General Chief Complaint: Chest Pain Stated Complaint: COVID+ chest pain Time Seen by Provider: 06/08/21 19:54 Source: patient, RN notes reviewed and old records reviewed Limitations: no limitations History of Present Illness HPI narrative: 61-year-old male with significant cardiac history and recent COVID diagnosis presented [facility] for evaluation of intermittent chest pain. Patient states he received his Covid diagnosis yesterday. Patient states over the course of the day he had 2 episodes of chest pain. Patient did take nitro for this chest pain and the pain resolved. Upon arrival to [facility] patient states he has no chest pain. Patient does have a history of stents and did have a recent cardiac cath in April. At that time he required no additional stents and plan was for medical management. Part of the medical management was long-acting nitrates. Patient reports he does have follow-up scheduled with cardiology. Patient's community resource officer is Dr. Mackey Related Data Home Medications Medication Instructions Recorded Confirmed Trulicity 1.5 mg SUBCUT WEEKLY 01/24/19 05/22/21 Xarelto 2.5 mg PO BID 01/24/19 05/22/21 amlodipine 10 mg PO DAILY 01/24/19 05/22/21 bupropion HCl [Wellbutrin SR] 150 mg PO BID 01/24/19 05/22/21 doxazosin [Cardura] 2 mg PO HS 01/24/19 05/22/21 metformin 1,000 mg PO BID 01/24/19 05/22/21 omeprazole 40 mg capsule,delayed 40 mg PO DAILY 04/13/19 05/22/21 release carvedilol [Coreg] 25 mg PO BID 04/28/19 05/22/21 atorvastatin 80 mg PO HS 05/16/19 05/22/21 albuterol sulfate [Ventolin HFA] 1 puff INHALATION Q4-6H PRN 01/09/20 05/22/21 budesonide-formoterol [Symbicort] 1 puff INHALATION BID 01/09/20 05/22/21 isosorbide mononitrate 60 mg PO DAILY 01/09/20 05/22/21 loratadine [Claritin] 10 mg PO DAILY PRN MDD 2 03/15/20 05/22/21 oxybutynin chloride 5 mg PO BID PRN MDD 2 03/15/20 05/22/21 Allergies Allergy/AdvReac Type Severity Reaction Status Date / Time No Known Allergies Allergy Unknown Verified 05/22/21 10:09 Review of Systems Review of Systems: CONSTITUTIONAL: Denies fever, chills, or sweats. EYES: Denies visual changes, redness, or discharge. ENT: Denies rhinorrhea, congestion, sore throat, or otalgia. CARDIOVASCULAR: Intermittent chest pain resolved with nitro. RESPIRATORY: Shortness of breath similar to baseline GASTROINTESTINAL: Denies abdominal pain, nausea, vomiting, or diarrhea. GENITOURINARY: Denies dysuria or hematuria. SKIN: Denies rash or itching. MUSCULOSKELETAL: Denies back pain, joint pain, or myalgia. NEUROLOGIC: Denies headache, numbness, or weakness. 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 Chronic anticoagulation Chronic obstructive pulmonary disease Congestive heart failure Coronary artery disease Deep venous thrombosis Depression Diabetic peripheral neuropathy Eczema Gastric ulcer Gastroesophageal reflux disease GI bleed Hearing loss Hyperlipidemia Hypertension Kidney stones Medial meniscus tear Myocardial infarction Nausea and vomiting Obstructive sleep apnea on CPAP Peripheral vascular disease Pneumonia Psoriasis Rectal polyp Seasonal allergies Transient ischemic attack Type 2 diabetes mellitus Surgical History Surgical History History of cardiac catheterization 2 stents History of cholecystectomy History of heart artery stent X2. History of lithotripsy History of loop recorder History of rectal polypectomy History of tonsillectomy Family History Family History Mother Diabetes mellitus Kidney stones Father Acute myocardial infarction Kidney stones Heart disease Sibling Heart disease Other Arthritis Hypertension
[2021-06-08 20:20] LABS: Alanine Aminotransferase 51 U/L (4-50); Albumin Level 4.4 g/dL (3.5-5.1); Alkaline Phosphatase 75 U/L (38-126); Anion Gap 9 mmol/L (8-16); Aspartate Amino Transferase 63 U/L (17-59); Bilirubin,Total 0.8 mg/dL (0.2-1.3); Blood Urea Nitrogen 11 mg/dL (9-20); Carbon Dioxide 27 mmol/L (22-30); Chloride 97 mmol/L (98-107); Estimated Glomerular Filt Rate > 60; Glucose 236 mg/dL (65-110); Lipase 111 U/L (23-300); Potassium 3.5 mmol/L (3.4-5.0); Sodium 133 mmol/L (137-145)
[2021-06-08 20:21] LABS: Prothrombin Time 12.6 Seconds (11.1-14.7)
[2021-06-08 20:22] LABS: Partial Thromboplastin Time 31.5 SECONDS (22.3-36.8)
[2021-06-08] MEDS: ASPIRIN 81 MG CHEWABLE TABLET 324 MG PO (20:23)
[2021-06-08 20:32] LABS: Troponin I < 0.012 ng/mL (0.000-0.034)
[2021-06-08] MEDS: ONDANSETRON INJ 4 MG/2 ML VIAL IV PUSH (21:41)
[2021-06-08 23:16] LABS: Troponin I < 0.012 ng/mL (0.000-0.034)
[2021-06-08 23:45] VITALS: BP 140/82; PULSE 81; RESP 19; O2SAT 98
== END 2021-06-08 23:47 | disposition home or self-care (01) ==
PROVIDERS: Emergency Provider Emergency Medicine; PCP Registered Nurse
DX: U07.1 COVID-19 (principal); R07.9 Chest pain, unspecified; E11.43 Type 2 diabetes mellitus with diabetic autonomic (poly)neuropathy; I69.954 Hemiplegia and hemiparesis following unspecified cerebrovascular disease affecting left non-dominant side; J44.9 Chronic obstructive pulmonary disease, unspecified; I50.9 Heart failure, unspecified; I25.10 Atherosclerotic heart disease of native coronary artery without angina pectoris; E78.5 Hyperlipidemia, unspecified; I11.0 Hypertensive heart disease with heart failure; I25.2 Old myocardial infarction; E11.51 Type 2 diabetes mellitus with diabetic peripheral angiopathy without gangrene; G47.33 Obstructive sleep apnea (adult) (pediatric); K21.9 Gastro-esophageal reflux disease without esophagitis; F41.9 Anxiety disorder, unspecified; F32.A Depression, unspecified; Z95.5 Presence of coronary angioplasty implant and graft; Z86.718 Personal history of other venous thrombosis and embolism; Z87.01 Personal history of pneumonia (recurrent); Z87.442 Personal history of urinary calculi; Z79.899 Other long term (current) drug therapy; Z79.01 Long term (current) use of anticoagulants; Z79.84 Long term (current) use of oral hypoglycemic drugs; F17.210 Nicotine dependence, cigarettes, uncomplicated; I45.10 Unspecified right bundle-branch block
CPT/HCPCS: 36415; 71045; 71275; 80053; 83690; 84484; 85025; 85055; 85610; 85730; 93005; 96374; 99284; A9270; J2405; Q9967

== ENCOUNTER 2021-07-11 17:52 | Emergency (ER) | payer MEDICARE, MEDICAID, SELFPAY ==
--- NOTE | ~2021-07-11 | CT_ITS ---
EXAMINATION: CT abdomen pelvis wo con DATE: 07/11/2021 20:25 INDICATION: Right flank pain. TECHNIQUE: Computed tomography (CT) of the abdomen and pelvis was performed without intravenous contr ast. Automated exposure control and iterative reconstruction technique were employed. The dose-length product was 1438.78 mGy-cm. COMPARISON: CT abdomen and pelvis 08/29/2020 FINDINGS: The visualized portions of the lung bases demonstrate mild atelectasis. There is a trace le ft pleural effusion. The heart size is normal. There are coronary artery calcifications. No pericardi al effusion. There is diffuse hepatic steatosis. There are changes of cholecystectomy. The spleen and pancreas are normal. There are masses in the adrenal glands bilaterally containing fat measuring up to 3.7 cm on the left, consistent with myelolipomas. There is a 2.3 cm cyst in right kidney. Left kid dhiraj is normal. There is a 5 mm stone in distal left ureter. The prostate is mildly enlarged. There ar e no dilated loops of bowel. The appendix is normal. There are no pathologically enlarged lymph nodes . There is no free intraperitoneal fluid. There is asymmetric fat in right inguinal canal that may be a hernia. There is mild thoracolumbar spondylosis. There is mild chronic anterior wedging of multipl e vertebral bodies. Again seen is a 14 mm sclerotic lesion in left femoral head, likely benign. IMPRESSION: 1. 5 mm stone in distal left ureter. No hydronephrosis. Reviewed, dictated and finalized at location A.
[2021-07-11 17:54] VITALS: BP 139/70; PULSE 79; RESP 18; TEMP 36.2; O2SAT 96
[2021-07-11 18:14] LABS: Basophils Percent Auto 0.5 % (0.2-1.2); Eosinophils Absolute Auto 0.2 K/mm3 (0-0.3); Hematocrit 40.8 % (42.0-52.0); Hemoglobin 13.9 g/dL (14.0-18.0); Immature Granulocyte Absolute 0.02 K/mm3 (0.00-0.031); Immature Granulocyte Percent A 0.2 % (0-0.5); Lymphocytes Percent Auto 16.5 % (18.3-44.2); Mean Corpuscular HGB Conc 34.1 g/dl (32-36); Mean Corpuscular Hemoglobin 30.8 pg (26-34); Mean Corpuscular Volume 90.5 fl (80-100); Mean Platelet Volume 10.8 fl (7.4-10.4); Monocytes Absolute Auto 0.7 K/mm3 (0.1-0.6); Monocytes Percent Auto 8.6 % (2.6-8.5); Neutrophils Absolute Auto 6.2 K/mm3 (1.3-6.7); Neutrophils Percent Auto 72.2 % (45.5-73.1); Platelet Count Result 149 k/mm3 (150-375); Red Blood Count 4.51 M/mm3 (4.6-6.20); Red Cell Distribution Width 13.7 % (11.5-14.5); White Blood Count 8.5 K/mm3 (4.5-10.0)
[2021-07-11 18:21] LABS: Appearance Urine Clear (Clear); Bilirubin Urine 1+ (Negative); Blood Urine Negative (Negative); Color Urine Yellow (Yellow); Glucose Urine UA Negative (Negative); Ketones Urine Trace mg/dL (Negative); Leukocyte Esterase Ur Negative LEU/UL (Negative); Nitrate Urine Negative (Negative); Protein Urine 2+ mg/dL (Negative); Specific Grav Ur 1.025 (1.001-1.035); Urobilinogen Urine 0.2 mg/dL (<2.0); pH Urine 5.5 (5.0-9.0)
[2021-07-11 18:25] LABS: Add Urine Microscopic? YES; Mucus Urine Rare /lpf; Squamous Epithelial Cell Urine Rare /hpf (Few); WBC Urine 0-3 /hpf
[2021-07-11 18:25] LABS: Alanine Aminotransferase 34 U/L (6-50); Albumin Level 4.6 g/dL (3.5-5.1); Alkaline Phosphatase 73 U/L (38-126); Anion Gap 10 mmol/L (8-16); Aspartate Amino Transferase 35 U/L (17-59); Bilirubin,Total 0.6 mg/dL (0.2-1.3); Blood Urea Nitrogen 24 mg/dL (9-20); Carbon Dioxide 23 mmol/L (22-30); Chloride 101 mmol/L (98-107); Estimated CRCL calculation 79 ml/min; Estimated Glomerular Filt Rate 56; Glucose 162 mg/dL (65-110); Potassium 4.3 mmol/L (3.4-5.0); Sodium 134 mmol/L (137-145)
--- NOTE | 2021-07-11 20:04 | ED.ABDPAIN ---
HPI - Abdominal Pain General Chief Complaint: Abdominal Pain Stated Complaint: right flank pain Time Seen by Provider: 07/11/21 20:04 Source: patient Mode of arrival: ambulatory Limitations: no limitations History of Present Illness HPI narrative: Patient is a 61-year-old male with a significant cardiac history, history of nephrolithiasis presenting for evaluation of right flank pain. Patient reports onset of pain approximately 3 PM. Patient reports dull, aching sensation in the right flank. Patient reports associated urinary hesitancy without dysuria or hematuria. Patient reports nausea without vomiting. He denies fever or chills. Patient has a history of nephrolithiasis, typically follows with urology Dr. Blanton. Patient denies any ripping or tearing sensation to the flanks. Denies chest pain, cough, shortness of breath. He denies any testicular pain or swelling. Related Data Home Medications Medication Instructions Recorded Confirmed Trulicity 1.5 mg SUBCUT WEEKLY 01/24/19 05/22/21 Xarelto 2.5 mg PO BID 01/24/19 05/22/21 amlodipine 10 mg PO DAILY 01/24/19 05/22/21 bupropion HCl [Wellbutrin SR] 150 mg PO BID 01/24/19 05/22/21 doxazosin [Cardura] 2 mg PO HS 01/24/19 05/22/21 metformin 1,000 mg PO BID 01/24/19 05/22/21 omeprazole 40 mg capsule,delayed 40 mg PO DAILY 04/13/19 05/22/21 release carvedilol [Coreg] 25 mg PO BID 04/28/19 05/22/21 atorvastatin 80 mg PO HS 05/16/19 05/22/21 albuterol sulfate [Ventolin HFA] 1 puff INHALATION Q4-6H PRN 01/09/20 05/22/21 budesonide-formoterol [Symbicort] 1 puff INHALATION BID 01/09/20 05/22/21 isosorbide mononitrate 60 mg PO DAILY 01/09/20 05/22/21 loratadine [Claritin] 10 mg PO DAILY PRN MDD 2 03/15/20 05/22/21 oxybutynin chloride 5 mg PO BID PRN MDD 2 03/15/20 05/22/21 Allergies Allergy/AdvReac Type Severity Reaction Status Date / Time No Known Allergies Allergy Unknown Verified 05/22/21 10:09 Review of Systems Review of Systems: CONSTITUTIONAL: Denies fever CARDIOVASCULAR: Denies chest pain RESPIRATORY: Denies cough or dyspnea. 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 Chronic anticoagulation Chronic obstructive pulmonary disease Congestive heart failure Coronary artery disease Deep venous thrombosis Depression Diabetic peripheral neuropathy Eczema Gastric ulcer Gastroesophageal reflux disease GI bleed Hearing loss Hyperlipidemia Hypertension Kidney stones Medial meniscus tear Myocardial infarction Nausea and vomiting Obstructive sleep apnea on CPAP Peripheral vascular disease Pneumonia Psoriasis Rectal polyp Seasonal allergies Transient ischemic attack Type 2 diabetes mellitus Surgical History Surgical History History of cardiac catheterization 2 stents History of cholecystectomy History of heart artery stent X2. History of lithotripsy History of loop recorder History of rectal polypectomy History of tonsillectomy Family History Family History Mother Diabetes mellitus Kidney stones Father Acute myocardial infarction Kidney stones Heart disease Sibling Heart disease Other Arthritis Hypertension Social History Social History Social History: Surrogate decision maker: Rena Dodd, friend. Code status: Full code. Smoking packs per day: 0.25 Smoking cigarettes per day: 5.0 Years smoked: 44 Smoking pack-years: 11.00 Smoking status: Current every day smoker Tobacco type: cigarettes Second hand tobacc
[2021-07-11 20:11] VITALS: BP 149/89; PULSE 78; RESP 15; O2SAT 96
--- NOTE | 2021-07-11 20:23 | PC.NURSE ---
pt. to ct
[2021-07-11] MEDS: SODIUM CHLORIDE 0.9% IV 1,000 ML 999 ML IV CONT (20:47)
[2021-07-11] MEDS: MORPHINE SULFATE (*CRX) 4 MG/ML INJ IV PUSH (20:47)
[2021-07-11 20:48] VITALS: BP 136/80; PULSE 76; RESP 14; O2SAT 97
[2021-07-11] MEDS: ONDANSETRON INJ 4 MG/2 ML VIAL IV PUSH (20:48)
--- NOTE | 2021-07-11 21:24 | PC.NURSE ---
provided pt. with urine strainer.
== END 2021-07-11 21:45 | disposition home or self-care (01) ==
LOC: ANHED 21:14
PROVIDERS: Emergency Provider Emergency Medicine; PCP Registered Nurse
DX: N20.1 Calculus of ureter (principal); I25.10 Atherosclerotic heart disease of native coronary artery without angina pectoris; E78.5 Hyperlipidemia, unspecified; I11.0 Hypertensive heart disease with heart failure; I50.9 Heart failure, unspecified; E11.9 Type 2 diabetes mellitus without complications; F17.210 Nicotine dependence, cigarettes, uncomplicated
CPT/HCPCS: 36415; 74176; 80053; 81001; 85025; 96361; 96374; 96375; 99284; J2270; J2405; J7030

== ENCOUNTER 2021-07-28 19:41 | Emergency (ER) | payer MEDICARE, MEDICAID, SELFPAY ==
--- NOTE | ~2021-07-28 | CT_ITS ---
EXAMINATION: CT abdomen pelvis wo con DATE: 07/28/2021 20:42 INDICATION: Right flank pain for 2-3 weeks TECHNIQUE: Computed tomography (CT) of the abdomen and pelvis was performed without intravenous contr ast. The dose-length product was 1695.15 mGy-cm. Automated exposure control and iterative reconstruct ion technique were employed. COMPARISON: CT dated 07/11/2021. FINDINGS: Lung bases unremarkable. Trace left pleural effusion. No pericardial effusion. There are fa t-containing masses involving both adrenal glands, compatible with myolipoma is. The liver, spleen, p ancreas, and kidneys are unremarkable. There is a persistent 5 mm distal left ureteral stone, positio n not significantly changed. No hydronephrosis. Bladder is decompressed. Prostate gland mildly enlarg ed. Stable right renal cyst. Stable sclerotic lesion left femoral head, likely benign. There is mild thoracolumbar spondylosis with mild chronic anterior wedging of multiple vertebral bodies. No lymphad enopathy. No significant vascular abnormality.The appendix is unremarkable. Stable trace fluid in the right paracolic gutter. There is a small right inguinal hernia containing fat and a small amount of fluid. IMPRESSION: 1. Stable position to 5 mm distal left ureteral stone. No significant hydronephrosis. 2: Small right inguinal hernia containing fat and a small amount of fluid. Reviewed, dictated and finalized at location A. IMPRESSION: 1. Stable position to 5 mm distal left ureteral stone. No significant hydroneph rosis. 2: Small right inguinal hernia containing fat and a small amount of fluid.
[2021-07-28 19:43] VITALS: BP 141/70; PULSE 79; RESP 26; TEMP 36.2; O2SAT 98
--- NOTE | 2021-07-28 20:07 | ED.MALEGU ---
HPI - Male Genitourinary General Chief complaint: Urogenital-Male Stated complaint: right flank pain Time Seen by Provider: 07/28/21 20:03 History of Present Illness HPI Narrative: 61-year-old male presents the emergency room for evaluation of right flank pain that began approximately 45 minutes prior to arrival. Patient states that he has a extended history of kidney stones, and believes that he might be passing another 1. Reports that he was here approximately 2 weeks ago for similar pain on his right flank, and imaging showed that he had a 5 mm stone in his distal ureter without hydronephrosis. Patient states that he has been straining his urine ever since then and has not been able to collect a stone. Patient is also complaining of some mild nausea and decreased urine flow. Related Data Home Medications Medication Instructions Recorded Confirmed amlodipine 10 mg tablet 10 mg PO DAILY 01/24/19 05/22/21 bupropion HCl 150 mg tablet,12 hr 150 mg PO BID 01/24/19 05/22/21 sustained-release (Wellbutrin SR) doxazosin 2 mg tablet (Cardura) 2 mg PO HS 01/24/19 05/22/21 dulaglutide 1.5 mg/0.5 mL 1.5 mg subcut WEEKLY 01/24/19 05/22/21 subcutaneous pen injector (Trulicity) metformin 1,000 mg tablet 1,000 mg PO BID 01/24/19 05/22/21 rivaroxaban 2.5 mg tablet (Xarelto) 2.5 mg PO BID 01/24/19 05/22/21 omeprazole 40 mg capsule,delayed 40 mg PO DAILY 04/13/19 05/22/21 release carvedilol 25 mg tablet (Coreg) 25 mg PO BID 04/28/19 05/22/21 atorvastatin 40 mg tablet 80 mg PO HS 05/16/19 05/22/21 albuterol sulfate 90 mcg/actuation 1 puff inhalation Q4-6H PRN 01/09/20 05/22/21 aerosol inhaler (Ventolin HFA) Shortness Of Breath budesonide-formoterol HFA 160 1 puff inhalation BID 01/09/20 05/22/21 mcg-4.5 mcg/actuation aerosol inhaler (Symbicort) isosorbide mononitrate 60 mg 60 mg PO DAILY 01/09/20 05/22/21 tablet,extended release 24 hr loratadine 10 mg tablet (Claritin) 10 mg PO DAILY PRN Congestion 03/15/20 05/22/21 oxybutynin chloride 5 mg tablet 5 mg PO BID PRN Bladder Spasms 03/15/20 05/22/21 Allergies Allergy/AdvReac Type Severity Reaction Status Date / Time No Known Allergies Allergy Unknown Verified 07/28/21 19:47 Review of Systems Review of Systems: CONSTITUTIONAL: Denies fever, chills, or sweats. EYES: Denies visual changes, redness, or discharge. ENT: Denies rhinorrhea, congestion, sore throat, or otalgia. CARDIOVASCULAR: Denies chest pain, palpitations, or edema. RESPIRATORY: Denies cough or dyspnea. GASTROINTESTINAL: Reports right flank pain GENITOURINARY: Denies dysuria or hematuria. SKIN: Denies rash or itching. MUSCULOSKELETAL: Denies back pain, joint pain, or myalgia. NEUROLOGIC: Denies headache, numbness, dizziness, or weakness. PSYCHIATRIC: Denies anxiety or depression. 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 Chronic anticoagulation Chronic obstructive pulmonary disease Congestive heart failure Coronary artery disease Deep venous thrombosis Depression Diabetic peripheral neuropathy Eczema Gastric ulcer Gastroesophageal reflux disease GI bleed Hearing loss Hyperlipidemia Hypertension Kidney stones Medial meniscus tear Myocardial infarction Nausea and vomiting Obstructive sleep apnea on CPAP Peripheral vascular disease Pneumonia Psoriasis Rectal polyp Seasonal allergies Transient ischemic attack Type 2 diabetes mellitus Surgical History Surgical History History of cardiac catheterization 2 stents History of cholecystectomy History of heart artery stent X2. History of lithotripsy History of loop recorder History of rectal polypectomy History of tonsillectomy Family History Family History Mot
[2021-07-28 20:27] LABS: Appearance Urine Clear (Clear); Bilirubin Urine 1+ (Negative); Color Urine Yellow (Yellow); Glucose Urine UA Negative (Negative); Ketones Urine Negative (Negative); Leukocyte Esterase Ur Negative LEU/UL (Negative); Nitrate Urine Negative (Negative); Protein Urine 2+ mg/dL (Negative); Specific Grav Ur >= 1.030 (1.001-1.035); Urobilinogen Urine 0.2 mg/dL (<2.0); pH Urine 5.5 (5.0-9.0)
[2021-07-28 20:28] LABS: Basophils Percent Auto 0.3 % (0.2-1.2); Eosinophils Absolute Auto 0.1 K/mm3 (0-0.3); Eosinophils Percent Auto 1.8 % (0-4.4); Hemoglobin 12.5 g/dL (14.0-18.0); Immature Granulocyte Absolute 0.03 K/mm3 (0.00-0.031); Immature Granulocyte Percent A 0.4 % (0-0.5); Immature Platelet Fraction Pct 7.1 % (0.9-11.2); Lymphocytes Absolute Auto 1.62 K/mm3 (0.9-3.2); Lymphocytes Percent Auto 20.6 % (18.3-44.2); Mean Corpuscular HGB Conc 33.8 g/dl (32-36); Mean Corpuscular Hemoglobin 30.6 pg (26-34); Mean Corpuscular Volume 90.5 fl (80-100); Mean Platelet Volume 11.3 fl (7.4-10.4); Monocytes Absolute Auto 0.7 K/mm3 (0.1-0.6); Monocytes Percent Auto 9.3 % (2.6-8.5); Neutrophils Absolute Auto 5.3 K/mm3 (1.3-6.7); Neutrophils Percent Auto 67.6 % (45.5-73.1); Platelet Count Result 145 k/mm3 (150-375); Red Blood Count 4.09 M/mm3 (4.6-6.20); Red Cell Distribution Width 13.6 % (11.5-14.5); White Blood Count 7.9 K/mm3 (4.5-10.0)
[2021-07-28 20:35] LABS: Add Urine Microscopic? YES; Blood Urine Trace-Intact (Negative)
[2021-07-28 20:36] LABS: Alanine Aminotransferase 37 U/L (6-50); Albumin Level 4.1 g/dL (3.5-5.1); Alkaline Phosphatase 69 U/L (38-126); Anion Gap 9 mmol/L (8-16); Aspartate Amino Transferase 34 U/L (17-59); Bilirubin,Total 0.5 mg/dL (0.2-1.3); Blood Urea Nitrogen 18 mg/dL (9-20); Calcium 8.7 mg/dL (8.4-10.2); Carbon Dioxide 22 mmol/L (22-30); Chloride 104 mmol/L (98-107); Estimated CRCL calculation 84 ml/min; Estimated Glomerular Filt Rate > 60; Glucose 164 mg/dL (65-110); Potassium 4.1 mmol/L (3.4-5.0); Sodium 135 mmol/L (137-145)
[2021-07-28] MEDS: ONDANSETRON INJ 4 MG/2 ML VIAL IV PUSH (20:41)
[2021-07-28] MEDS: SODIUM CHLORIDE 0.9% IV 1,000 ML 999 ML IV CONT (20:41)
[2021-07-28 20:45] LABS: Mucus Urine Rare /lpf; RBC Urine 0-2 /hpf (0-2); Squamous Epithelial Cell Urine Rare /hpf (Few); WBC Urine 0-3 /hpf
[2021-07-28] MEDS: MORPHINE SULFATE (*CRX) 4 MG/ML INJ IV PUSH (20:48)
[2021-07-28 21:10] VITALS: BP 143/73; PULSE 72; RESP 22; O2SAT 96
[2021-07-28] MEDS: KETOROLAC 30 MG/ML VIAL (*BKC) IV PUSH (21:11)
== END 2021-07-28 21:39 | disposition home or self-care (01) ==
PROVIDERS: Emergency Provider Nurse Practitioner Family; PCP Registered Nurse
DX: N20.0 Calculus of kidney (principal); I25.10 Atherosclerotic heart disease of native coronary artery without angina pectoris; I11.0 Hypertensive heart disease with heart failure; I50.9 Heart failure, unspecified; E11.9 Type 2 diabetes mellitus without complications; I25.2 Old myocardial infarction; E78.5 Hyperlipidemia, unspecified; F17.210 Nicotine dependence, cigarettes, uncomplicated; Z79.84 Long term (current) use of oral hypoglycemic drugs; Z86.73 Personal history of transient ischemic attack (TIA), and cerebral infarction without residual deficits; Z86.718 Personal history of other venous thrombosis and embolism
CPT/HCPCS: 36415; 74176; 80053; 81001; 85025; 85055; 96361; 96374; 96375; 99284; J1885; J2270; J2405; J7030

== ENCOUNTER 2021-08-07 16:22 | Emergency (ER) | payer MEDICARE, MEDICAID, SELFPAY ==
--- NOTE | ~2021-08-07 | CT_ITS ---
EXAMINATION: CT abdomen pelvis wo con DATE: 08/07/2021 16:55 INDICATION: left flank pain TECHNIQUE: Computed tomography (CT) of the abdomen and pelvis was performed without intravenous contr ast. Automated exposure control and iterative reconstruction technique were employed. The dose-length product was 1625.50 mGy-cm. COMPARISON: 07/28/2021. FINDINGS: Lower thorax: Moderate coronary artery calcification. Liver: Hepatomegaly Biliary/Gallbladder: Gallbladder is absent. No bile duct dilation. Pancreas: No mass or duct dilation. Spleen: Normal. Adrenals:Bilateral myelolipoma is. Kidneys: Perinephric stranding. Right midpole cyst. No calcification or hydronephrosis. GI tract: No small or large bowel dilation. Normal appendix. Focal inflammation of a diverticulum off the mid sigmoid colon in the mid lower abdomen. Mesentery/Peritoneum: No ascites, mass, or free air. Retroperitoneum: No mass. Atherosclerotic calculations. Pelvis: Pelvic organs are within normal limits. Soft Tissues: Fat-containing umbilical and bilateral inguinal hernias. Bones: No acute osseous finding. IMPRESSION: Acute uncomplicated sigmoid diverticulitis. Reviewed, dictated and finalized at location K.
[2021-08-07 16:23] VITALS: BP 147/92; PULSE 75; RESP 18; TEMP 36.1; O2SAT 99
--- NOTE | 2021-08-07 16:38 | ED.MALEGU ---
HPI - Male Genitourinary General Chief complaint: Urogenital-Male Stated complaint: left flank pain Time Seen by Provider: 08/07/21 16:30 History of Present Illness HPI Narrative: 61-year-old male presents the emergency room complaints of sudden onset of left flank pain. Patient has a significant history of kidney stones, feels that this pain is similar. Patient also reports nausea, and decreased urination. Patient denies fever. Patient states pain radiates from left flank into the groin area. Denies any alleviating or aggravating factors. Related Data Home Medications Medication Instructions Recorded Confirmed amlodipine 10 mg tablet 10 mg PO DAILY 01/24/19 05/22/21 bupropion HCl 150 mg tablet,12 hr 150 mg PO BID 01/24/19 05/22/21 sustained-release (Wellbutrin SR) doxazosin 2 mg tablet (Cardura) 2 mg PO HS 01/24/19 05/22/21 dulaglutide 1.5 mg/0.5 mL 1.5 mg subcut WEEKLY 01/24/19 05/22/21 subcutaneous pen injector (Trulicity) metformin 1,000 mg tablet 1,000 mg PO BID 01/24/19 05/22/21 rivaroxaban 2.5 mg tablet (Xarelto) 2.5 mg PO BID 01/24/19 05/22/21 omeprazole 40 mg capsule,delayed 40 mg PO DAILY 04/13/19 05/22/21 release carvedilol 25 mg tablet (Coreg) 25 mg PO BID 04/28/19 05/22/21 atorvastatin 40 mg tablet 80 mg PO HS 05/16/19 05/22/21 albuterol sulfate 90 mcg/actuation 1 puff inhalation Q4-6H PRN 01/09/20 05/22/21 aerosol inhaler (Ventolin HFA) Shortness Of Breath budesonide-formoterol HFA 160 1 puff inhalation BID 01/09/20 05/22/21 mcg-4.5 mcg/actuation aerosol inhaler (Symbicort) isosorbide mononitrate 60 mg 60 mg PO DAILY 01/09/20 05/22/21 tablet,extended release 24 hr loratadine 10 mg tablet (Claritin) 10 mg PO DAILY PRN Congestion 03/15/20 05/22/21 oxybutynin chloride 5 mg tablet 5 mg PO BID PRN Bladder Spasms 03/15/20 05/22/21 Allergies Allergy/AdvReac Type Severity Reaction Status Date / Time No Known Allergies Allergy Unknown Verified 07/28/21 19:47 Review of Systems Review of Systems: CONSTITUTIONAL: Denies fever, chills, or sweats. EYES: Denies visual changes, redness, or discharge. ENT: Denies rhinorrhea, congestion, sore throat, or otalgia. CARDIOVASCULAR: Denies chest pain, palpitations, or edema. RESPIRATORY: Denies cough or dyspnea. GASTROINTESTINAL: Reports left flank pain GENITOURINARY: Denies dysuria or hematuria. SKIN: Denies rash or itching. MUSCULOSKELETAL: Denies back pain, joint pain, or myalgia. NEUROLOGIC: Denies headache, numbness, dizziness, or weakness. PSYCHIATRIC: Denies anxiety or depression. 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 Chronic anticoagulation Chronic obstructive pulmonary disease Congestive heart failure Coronary artery disease Deep venous thrombosis Depression Diabetic peripheral neuropathy Eczema Gastric ulcer Gastroesophageal reflux disease GI bleed Hearing loss Hyperlipidemia Hypertension Kidney stones Medial meniscus tear Myocardial infarction Nausea and vomiting Obstructive sleep apnea on CPAP Peripheral vascular disease Pneumonia Psoriasis Rectal polyp Seasonal allergies Transient ischemic attack Type 2 diabetes mellitus Surgical History Surgical History History of cardiac catheterization 2 stents History of cholecystectomy History of heart artery stent X2. History of lithotripsy History of loop recorder History of rectal polypectomy History of tonsillectomy Family History Family History Mother Diabetes mellitus Kidney stones Father Acute myocardial infarction Kidney stones Heart disease Sibling Heart disease Other Arthritis Hypertension Social History Social History (Reviewed 08/07/21 @ 16:40
[2021-08-07 17:10] LABS: Basophils Percent Auto 0.2 % (0.2-1.2); Eosinophils Absolute Auto 0.1 K/mm3 (0-0.3); Eosinophils Percent Auto 1.3 % (0-4.4); Hemoglobin 13.3 g/dL (14.0-18.0); Immature Granulocyte Absolute 0.04 K/mm3 (0.00-0.031); Immature Granulocyte Percent A 0.4 % (0-0.5); Lymphocytes Absolute Auto 1.35 K/mm3 (0.9-3.2); Lymphocytes Percent Auto 14.6 % (18.3-44.2); Mean Corpuscular HGB Conc 34.1 g/dl (32-36); Mean Corpuscular Hemoglobin 30.4 pg (26-34); Mean Corpuscular Volume 89.2 fl (80-100); Mean Platelet Volume 10.8 fl (7.4-10.4); Monocytes Absolute Auto 0.7 K/mm3 (0.1-0.6); Monocytes Percent Auto 7.9 % (2.6-8.5); Neutrophils Percent Auto 75.6 % (45.5-73.1); Platelet Count Result 149 k/mm3 (150-375); Red Blood Count 4.37 M/mm3 (4.6-6.20); Red Cell Distribution Width 13.5 % (11.5-14.5); White Blood Count 9.2 K/mm3 (4.5-10.0)
--- NOTE | 2021-08-07 17:10 | PC.NURSE ---
per ERP Won, cancel SLN and IV medications. He reports he is going to start pt on PO meds
[2021-08-07 17:35] VITALS: BP 152/70; PULSE 86; RESP 16; TEMP 36.3; O2SAT 98
== END 2021-08-07 17:37 | disposition home or self-care (01) ==
PROVIDERS: Emergency Provider Nurse Practitioner Family; PCP Registered Nurse
DX: K57.32 Diverticulitis of large intestine without perforation or abscess without bleeding (principal); J44.9 Chronic obstructive pulmonary disease, unspecified; I50.9 Heart failure, unspecified; I11.0 Hypertensive heart disease with heart failure; E11.42 Type 2 diabetes mellitus with diabetic polyneuropathy; E11.51 Type 2 diabetes mellitus with diabetic peripheral angiopathy without gangrene; I73.9 Peripheral vascular disease, unspecified; E11.43 Type 2 diabetes mellitus with diabetic autonomic (poly)neuropathy; I25.10 Atherosclerotic heart disease of native coronary artery without angina pectoris; E78.5 Hyperlipidemia, unspecified; I69.954 Hemiplegia and hemiparesis following unspecified cerebrovascular disease affecting left non-dominant side; I25.2 Old myocardial infarction; K21.9 Gastro-esophageal reflux disease without esophagitis; G47.33 Obstructive sleep apnea (adult) (pediatric); Z87.442 Personal history of urinary calculi; Z87.01 Personal history of pneumonia (recurrent); Z87.19 Personal history of other diseases of the digestive system; Z95.5 Presence of coronary angioplasty implant and graft; Z79.84 Long term (current) use of oral hypoglycemic drugs; Z79.01 Long term (current) use of anticoagulants; F17.210 Nicotine dependence, cigarettes, uncomplicated
CPT/HCPCS: 36415; 74176; 85025; 99284

== ENCOUNTER 2021-08-18 13:16 | Inpatient (IN) | payer MEDICARE, MEDICAID, SELFPAY ==
[2021-08-18] VITALS (24 sets, daily range): BP systolic 90–118; BP diastolic 55–73; PULSE 63–84; RESP 14–23; TEMP 36.3–36.9; O2SAT 95–99; BMI 43.6
--- NOTE | ~2021-08-18 | CT_ITS ---
EXAMINATION: CT abdomen pelvis wo con DATE: 08/19/2021 17:09 INDICATION: right flank pain with hx of renal stones TECHNIQUE: Computed tomography (CT) of the abdomen and pelvis was performed without intravenous contr ast. Automated exposure control and iterative reconstruction technique were employed. The dose-length product was 1488.33 mGy-cm. COMPARISON: 08/07/2021. FINDINGS: Lower thorax: Moderate coronary artery calcification. Bibasilar scar/atelectasis. Liver: Hepatomegaly. Biliary/Gallbladder: Gallbladder is absent. No bile duct dilation. Pancreas: No mass or duct dilation. Spleen: Normal. Adrenals:Bilateral myelolipomas. Kidneys: Right midpole cyst. No calcification or hydronephrosis. GI tract: No small or large bowel dilation. Normal appendix. Complete interval resolution of the prev iously described sigmoid diverticulitis. Mesentery/Peritoneum: No ascites, mass, or free air. Retroperitoneum: No mass. Atherosclerotic abdominal aortic and/or arterial calcifications. Pelvis: 5 x 7 mm distal left pelvic calcification, now more clearly residing within the distal left u reter. No bladder wall thickening. Mild prostatomegaly. Soft Tissues: Fat-containing clinical and bilateral inguinal hernias. Bones: No acute osseous finding. IMPRESSION: No CT evidence of obstructive right uropathy or appendicitis. No acute process detected in the abdome n. Stable hepatomegaly. Stable 5 x 7 mm distal left ureteral stone, no left hydronephrosis. Reviewed, dictated and finalized at location K. IMPRESSION: No CT evidence of obstructive right uropathy or appendicitis. No acute process detected in the abdomen. Stable hepatomegaly. Stable 5 x 7 mm distal left urete ral stone, no left hydronephrosis.
--- NOTE | ~2021-08-18 | XR_ITS ---
XR chest 2V DATE: 08/18/2021 14:02 INDICATION: Chest pain TECHNIQUE: AP and lateral views COMPARISON: 06/18/2021 CTA chest 06/18/2021 portable AP chest FINDINGS: Mild patchy bibasilar infiltrate and/atelectasis. Heart size appears within normal range. No pulmonary vascular congestion. No pneumothorax. Diffuse osteopenia. IMPRESSION: Mild patchy bibasilar infiltrate and/atelectasis Reviewed, dictated and finalized at location A.
--- NOTE | 2021-08-18 13:22 | ECG_ITS ---
Measurements Intervals [place] Rate: 73 P: 55 PA: 154 QRS: 26 QRSD: 146 T: 6 QT: 407 QTc: 451 Interpretive Statements SINUS RHYTHM RIGHT BUNDLE BRANCH BLOCK [120+ ms QRS DURATION, UPRIGHT V1, 40+ ms S IN I/aVL/V4/V5/V6] COMPARED TO ECG 06/08/2021 19:59:02 NO SIGNIFICANT CHANGES Electronically Signed On 08-19-2021 12:57:57 CDT by Todd Kwan M.D.
[2021-08-18 13:45] LABS: Basophils Percent Auto 0.2 % (0.2-1.2); Eosinophils Absolute Auto 0.2 K/mm3 (0-0.3); Eosinophils Percent Auto 1.7 % (0-4.4); Hemoglobin 13.7 g/dL (14.0-18.0); Immature Granulocyte Absolute 0.04 K/mm3 (0.00-0.031); Immature Granulocyte Percent A 0.4 % (0-0.5); Lymphocytes Absolute Auto 1.42 K/mm3 (0.9-3.2); Lymphocytes Percent Auto 15.4 % (18.3-44.2); Mean Corpuscular HGB Conc 34.3 g/dl (32-36); Mean Corpuscular Hemoglobin 30.2 pg (26-34); Mean Corpuscular Volume 88.3 fl (80-100); Mean Platelet Volume 11.3 fl (7.4-10.4); Monocytes Absolute Auto 0.7 K/mm3 (0.1-0.6); Monocytes Percent Auto 7.8 % (2.6-8.5); Neutrophils Absolute Auto 6.8 K/mm3 (1.3-6.7); Neutrophils Percent Auto 74.5 % (45.5-73.1); Platelet Count Result 168 k/mm3 (150-375); Red Blood Count 4.53 M/mm3 (4.6-6.20); Red Cell Distribution Width 13.2 % (11.5-14.5); White Blood Count 9.2 K/mm3 (4.5-10.0)
[2021-08-18 13:55] LABS: Alanine Aminotransferase 35 U/L (6-50); Albumin Level 4.5 g/dL (3.5-5.1); Alkaline Phosphatase 72 U/L (38-126); Anion Gap 7 mmol/L (8-16); Aspartate Amino Transferase 36 U/L (17-59); Bilirubin,Total 0.8 mg/dL (0.2-1.3); Blood Urea Nitrogen 16 mg/dL (9-20); Calcium 9.3 mg/dL (8.4-10.2); Carbon Dioxide 24 mmol/L (22-30); Chloride 102 mmol/L (98-107); Estimated CRCL calculation 92 ml/min; Estimated Glomerular Filt Rate > 60; Glucose 162 mg/dL (65-110); Lipase 129 U/L (23-300); Potassium 4.6 mmol/L (3.4-5.0); Sodium 133 mmol/L (137-145)
[2021-08-18 13:56] LABS: INR 1.2; Prothrombin Time 14.9 Seconds (11.1-14.7)
[2021-08-18 13:57] LABS: Partial Thromboplastin Time 33.7 SECONDS (22.3-36.8)
[2021-08-18 14:06] LABS: Troponin I < 0.012 ng/mL (0.000-0.034)
[2021-08-18] MEDS: ASPIRIN 81 MG CHEWABLE TABLET 324 MG PO (14:07)
--- NOTE | 2021-08-18 14:23 | ED.GENADULT ---
HPI - General Adult General Chief complaint: Chest Pain Stated complaint: sob, chest pain, feel like I'm going to pass out. Time Seen by Provider: 08/18/21 13:41 History of Present Illness HPI narrative: Patient is a 61-year-old male who presents ER with chest pain. Reports its occurred 3 times today. Goes away with nitro each time. In between the second and third chest pain he was sitting on a toilet and when he stood up he lost consciousness. He has no fevers or chills or sweats. He does feel some mild shortness of breath. Patient has known CAD with a stent to the LAD. He is followed by the care group. He has had a cardiac cath in the last 6 months that shows stable disease. No chest pain at this time. When he was having the discomfort radiated into his shoulder and down his left arm. It was pressure-like pain. Related Data Home Medications Medication Instructions Recorded Confirmed amlodipine 10 mg tablet 10 mg PO DAILY 01/24/19 08/18/21 bupropion HCl 150 mg tablet,12 hr 150 mg PO BID 01/24/19 08/18/21 sustained-release (Wellbutrin SR) doxazosin 2 mg tablet (Cardura) 2 mg PO HS 01/24/19 08/18/21 dulaglutide 1.5 mg/0.5 mL 1.5 mg subcut WEEKLY 01/24/19 08/18/21 subcutaneous pen injector (Trulicity) metformin 1,000 mg tablet 1,000 mg PO BID 01/24/19 08/18/21 rivaroxaban 2.5 mg tablet (Xarelto) 2.5 mg PO BID 01/24/19 08/18/21 omeprazole 40 mg capsule,delayed 40 mg PO DAILY 04/13/19 08/18/21 release carvedilol 25 mg tablet (Coreg) 25 mg PO BID 04/28/19 08/18/21 atorvastatin 40 mg tablet 80 mg PO HS 05/16/19 08/18/21 albuterol sulfate 90 mcg/actuation 2 puff inhalation Q4-6H PRN 01/09/20 08/18/21 aerosol inhaler (Ventolin HFA) Shortness Of Breath budesonide-formoterol HFA 160 1 puff inhalation BID 01/09/20 08/18/21 mcg-4.5 mcg/actuation aerosol inhaler (Symbicort) isosorbide mononitrate 60 mg 60 mg PO DAILY 01/09/20 08/18/21 tablet,extended release 24 hr loratadine 10 mg tablet (Claritin) 10 mg PO DAILY PRN Congestion 03/15/20 08/18/21 Allergies Allergy/AdvReac Type Severity Reaction Status Date / Time No Known Allergies Allergy Unknown Verified 07/28/21 19:47 Review of Systems Review of Systems: All systems reviewed & are unremarkable except as noted in HPI and below Constitutional: Constitutional: Denies chills, Denies fatigue and Denies fever(s) ENT: Denies nasal congestion and Denies sore throat Cardiovascular: Cardiovascular: Reports chest pain, Denies rapid heart rate and Reports radiating jaw, neck or arm pain Respiratory: Respiratory: Denies cough and Reports dyspnea Gastrointestinal: Gastrointestinal: Denies abdominal pain, Denies nausea and Denies vomiting Neurologic: Denies headache(s), Denies focal weakness and Denies numbness PMFSH Past Medical History Medical History Anxiety Arthritis 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 Chronic anticoagulation Chronic obstructive pulmonary disease Congestive heart failure Coronary artery disease Deep venous thrombosis Depression Diabetic peripheral neuropathy Eczema Gastric ulcer Gastroesophageal reflux disease GI bleed Hearing loss Hyperlipidemia Hypertension Kidney stones Medial meniscus tear Myocardial infarction Nausea and vomiting Obstructive sleep apnea on CPAP Peripheral vascular disease Pneumonia Psoriasis Rectal polyp Seasonal allergies Transient ischemic attack Type 2 diabetes mellitus Surgical History Surgical History History of cardiac catheterization 2 stents History of cholecystectomy History of heart artery stent X2. History of lithotripsy History of loop recorder History of rectal polypectomy History of tonsillectomy Family History Family History (Updated 08/18/21 @ 16:53 by Jil Love RN) Mother Diab
[2021-08-18] MEDS: ONDANSETRON INJ 4 MG/2 ML VIAL IV PUSH (14:37)
--- NOTE | 2021-08-18 15:25 | PC.NURSE ---
Patient states he is unable to urinate.
[2021-08-18 16:05] LABS: Appearance Urine Clear (Clear); Bilirubin Urine 2+ (Negative); Blood Urine Negative (Negative); Color Urine Yellow (Yellow); Glucose Urine UA Negative (Negative); Ketones Urine 1+ mg/dL (Negative); Leukocyte Esterase Ur Negative LEU/UL (Negative); Nitrate Urine Negative (Negative); Protein Urine 3+ mg/dL (Negative); Specific Grav Ur >= 1.030 (1.001-1.035); pH Urine 5.5 (5.0-9.0)
[2021-08-18 16:08] LABS: Mucus Urine Heavy /lpf; Squamous Epithelial Cell Urine Occasional /hpf (Few)
--- NOTE | 2021-08-18 16:10 | PM.IMHP ---
H&P: HPI History of Present Illness Date/Time: 08/18/21 16:10 Chief Complaint: Chest pain, syncope. Narrative: This is a pleasant 61-year-old male with multiple medical problems including history of stroke, diabetes, coronary artery disease, peripheral vascular disease, congestive heart failure, and several other comorbidities who presented to the emergency department for evaluation of chest pain as well as a syncopal episode. Yesterday evening while doing nothing in particular he developed some discomfort in the substernal region described as a heaviness or tightness sensation. It has occurred intermittently since that time and he sees no pattern as to when it occurs. Today it seems to be more intense and was associated with shortness of breath, nausea, and dizziness. He took nitroglycerin on 3 occasions which seemed to help the pain however he had a syncopal episode not long after taking one of those doses. He was still feeling lightheaded on the way to the hospital but it seems to have resolved. His last cardiac catheterization was earlier this year and showed stable disease. At the time my evaluation he seems to be feeling a bit better regarding the chest pain but now he is having some discomfort in the right flank area. He has a history of kidney stones however this pain is not necessarily similar and he is wondering if perhaps it was related to the fall and syncopal episode earlier today. Initially he did not think he injured himself, however and does not think there was any head trauma. Review of Systems Review of Systems: Twelve systems were reviewed and are negative except for as per HPI. 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 Chronic anticoagulation Chronic obstructive pulmonary disease Congestive heart failure Coronary artery disease Deep venous thrombosis Depression Diabetic peripheral neuropathy Eczema Gastric ulcer Gastroesophageal reflux disease GI bleed Hearing loss Hyperlipidemia Hypertension Kidney stones Medial meniscus tear Myocardial infarction Nausea and vomiting Obstructive sleep apnea on CPAP Peripheral vascular disease Pneumonia Psoriasis Rectal polyp Seasonal allergies Transient ischemic attack Type 2 diabetes mellitus Surgical History Surgical History History of cardiac catheterization 2 stents History of cholecystectomy History of heart artery stent X2. History of lithotripsy History of loop recorder History of rectal polypectomy History of tonsillectomy Family History Family History Mother Diabetes mellitus Kidney stones Father Acute myocardial infarction Heart disease Kidney stones Sibling Heart disease Coronary artery disease Hx of CABG Other Arthritis Hypertension Social History Social History Social History: Surrogate decision maker: Rena Yousif, friend. Code status: Full code. Smoking packs per day: 0.5 Smoking cigarettes per day: 10.0 Years smoked: 44 Smoking pack-years: 22.00 Smoking status: Current every day smoker Tobacco type: cigarettes Second hand tobacco smoke exposure: No Alcohol intake: former Substance use: never Substance use type: does not use Additional living arrangements comments: The patient lives in [place] with a roommate. He has no children. Additional occupation/education comments: Disabled. Spiritual care concerns: No Meds Home Medications and Allergies Home Medications Medication Instructions Recorded Confirmed Type amlodipine 10 mg tablet 10 mg PO DAILY 01/24/19 08/18/21 History bupropion HCl 150 mg tablet,12 hr 150 mg
[2021-08-18 16:11] LABS: Add Urine Microscopic? YES
--- NOTE | 2021-08-18 16:35 | ADMGEN ---
This patient, Vini Zambrano, was admitted to IMU Room 214-01. Patient/family oriented to hospital policies and general routines including ID bracelet, bed and alarms, visiting hours, pain management, procedures, bathroom and other care routines, personal items, smoking policy, room service/diet, and visiting hours. Information on how to activate the Rapid Response Team has been discussed. Patient/Family are encouraged to report perceived risks to care and to ask questions if they do not understand what they are told or what they should do.
[2021-08-18 16:50] LABS: Troponin I < 0.012 ng/mL (0.000-0.034)
[2021-08-18 19:46] LABS: Troponin I < 0.012 ng/mL (0.000-0.034)
[2021-08-18 22:55] LABS: CRP 0.7 mg/dL (<1.0); Magnesium 1.5 mg/dL (1.6-2.3); Potassium 4.6 mmol/L (3.4-5.0)
[2021-08-18] MEDS: ATORVASTATIN 40 MG TABLET 80 MG PO (23:15)
[2021-08-18] MEDS: RIVAROXABAN 2.5 MG TABLET PO (23:15)
[2021-08-18] MEDS: carvediloL 25 MG TABLET PO (23:16)
[2021-08-18] MEDS: DOXAZOSIN MESYLATE 2 MG TABLET PO (23:16)
[2021-08-18] MEDS: buPROPion HCL SR (12 HR) 150 MG TAB PO (23:16)
[2021-08-18] MEDS: MORPHINE SULFATE (*CRX) 2 MG/ML INJ IV PUSH (23:21)
[2021-08-18 23:48] LABS: Glucose Point of Care 187 mg/dl (65-105)
[2021-08-19] VITALS (16 sets, daily range): BP systolic 115–129; BP diastolic 66–85; PULSE 57–78; RESP 14–21; TEMP 35.7–37.1; O2SAT 95–99
[2021-08-19 03:34] LABS: Glucose Point of Care 202 mg/dl (65-105)
[2021-08-19] MEDS: MORPHINE SULFATE (*CRX) 2 MG/ML INJ IV PUSH ×3 (03:35→14:02)
[2021-08-19 04:29] LABS: Hematocrit 37.3 % (42.0-52.0); Hemoglobin 12.6 g/dL (14.0-18.0); Immature Platelet Fraction Pct 8.7 % (0.9-11.2); Mean Corpuscular HGB Conc 33.8 g/dl (32-36); Mean Corpuscular Hemoglobin 30.4 pg (26-34); Mean Corpuscular Volume 90.1 fl (80-100); Mean Platelet Volume 10.7 fl (7.4-10.4); Platelet Count Result 131 k/mm3 (150-375); Red Blood Count 4.14 M/mm3 (4.6-6.20); Red Cell Distribution Width 13.4 % (11.5-14.5); White Blood Count 6.8 K/mm3 (4.5-10.0)
[2021-08-19 04:44] LABS: Alanine Aminotransferase 32 U/L (6-50); Alkaline Phosphatase 65 U/L (38-126); Anion Gap 4 mmol/L (8-16); Aspartate Amino Transferase 29 U/L (17-59); Bilirubin,Total 0.5 mg/dL (0.2-1.3); Blood Urea Nitrogen 19 mg/dL (9-20); Calcium 8.6 mg/dL (8.4-10.2); Carbon Dioxide 29 mmol/L (22-30); Chloride 99 mmol/L (98-107); Estimated CRCL calculation 78 ml/min; Estimated Glomerular Filt Rate 56; Glucose 213 mg/dL (65-110); Magnesium 1.6 mg/dL (1.6-2.3); Potassium 3.8 mmol/L (3.4-5.0); Sodium 132 mmol/L (137-145)
[2021-08-19 08:00] LABS: Glucose Point of Care 184 mg/dl (65-105)
[2021-08-19] MEDS: FLUTICASONE/SALMETEROL 115-21 MCG INHALER 1 PUFF 2 PUFF INHALATION ×2 (08:12→20:21)
[2021-08-19] MEDS: TAMSULOSIN HCL 0.4 MG CAPSULE PO (09:15)
[2021-08-19] MEDS: ASPIRIN 81 MG CHEWABLE TABLET PO (09:15)
[2021-08-19] MEDS: carvediloL 25 MG TABLET PO ×2 (09:16→20:11)
[2021-08-19] MEDS: amLODIPine BESYLATE 5 MG TABLET 10 MG PO (09:16)
[2021-08-19] MEDS: ISOSORBIDE MONONITRATE 60 MG TAB.ER.24H PO (09:16)
[2021-08-19] MEDS: RIVAROXABAN 2.5 MG TABLET PO ×2 (09:17→20:11)
[2021-08-19] MEDS: ALPRAZolam (*CRX) 0.25 MG TABLET PO (09:17)
[2021-08-19] MEDS: PANTOPRAZOLE 40 MG TABLET PO ×2 (09:17→16:34)
--- NOTE | 2021-08-19 09:20 | PM.IMPN ---
Progress Note: A&P Assessment and Plan (1) Chest pain: Code(s): R07.9 - Chest pain, unspecified Status: Acute Assessment and Plan: Troponin negative x 3. EKG unchanged when compared to previous EKG 05/2021. Pain seems to have resolved at this time but did not completely resolve with nitroglycerin. Not reproducible on exam, so costochondritis less likely. May have worsening of GERD. Patient may benefit from workup of H. pylori outpatient as patient would need to be off PPI for two weeks to complete the workup. -Appreciate recommendations from Cardiology (2) Right flank pain: Code(s): R10.9 - Unspecified abdominal pain Status: Acute Assessment and Plan: Hx of multiple episodes of nephrolithiasis and says he was on a medication for treatment for approximately 4 months before discontinuation due to it not working. May benefit from seeing [facility]. UA positive for RBCs but negative for blood. Urine culture is pending. -CT renal colic and if no stone will discharge to home with lidocaine patch and tramadol -F/U UCX - may hold discharge until finalization of UCX. (3) Type 2 diabetes mellitus: Qualifiers: Diabetes mellitus superintendent building insulin use: with [facility] use Diabetes mellitus complication status: with circulatory complication Code(s): E11.9 - Type 2 diabetes mellitus without complications Status: Acute Assessment and Plan: Continue dulaglutide. Metformin held. Will resume for discharge. (4) Hypertension: Code(s): I10 - Essential (primary) hypertension Status: Acute Assessment and Plan: Continue carvedilol and isosorbide mononitrate. (5) Obstructive sleep apnea on CPAP: Code(s): G47.33 - Obstructive sleep apnea (adult) (pediatric); Z99.89 - Dependence on other enabling machines and devices Status: Acute Assessment and Plan: May use home CPAP. (6) Tobacco abuse: Code(s): Z72.0 - Tobacco use Status: Chronic (7) Vasovagal syncope: Code(s): R55 - Syncope and collapse Status: Acute Assessment and Plan: Currently asymptomatic. This was likely multifactorial due to nitroglycerin, dehydration. Patient follows with Cardiology outpatient and had been seen about a week prior to presentation in the ED. No hx of . Mild anemia is stable with no signs of bleeding. BP low at presentation but now improved. All home medications for BP were given this morning and patient is currently asymptomatic. Plan Subjective Date/time seen: 08/19/21 09:20 Patient denies chest pain, shortness of breath above baseline, palpitations. Patient says he started having right flank pain around 1500 yesterday and is concerned he has a kidney stone as he has had them in the past. Says without IV pain medication it is 9/10, intermittent sharp stabbing pain. Denies lightheadedness or dizziness. Reports having lithotripsy x3 between 12/2018 and 01/2020 due to large stones on the left. Denies fever, chils, dysuria, hematuria. UA yesterday showed no blood but RBCs were present. Review of Systems Constitutional: Constitutional: Denies chills Cardiovascular: Cardiovascular: Denies chest pain, Denies lightheadedness and Denies palpitations Musculoskeletal: Musculoskeletal: Denies arthralgias Exam Narrative: GENERAL: NAD, cooperative HEENT: Normocephalic, atraumatic, anicteric NECK: Thick CV: Normal S1, S2, RRR, No MRG RESP: CTAB, Normal work of breathing. Chest - no tenderness to palpation of sternum or ribs Abdomen: Soft, non-tender, non-distended, no CVA Tenderness bilaterally EXTREMITIES: Warm and well perfused, no clubbing, cyanosis, or edema. SKIN: warm, dry and intact. NEURO:CN 2-12 grossly intact. Objective Data Vital Signs Vital Signs: Vital Signs - 24 hr 08/18/21 13:18 08/18/21 13:29 08/18/21 13:30 Temperature 97.9 F Pulse Rate 74 73 73 Respirato
[2021-08-19] MEDS: buPROPion HCL SR (12 HR) 150 MG TAB PO ×2 (09:36→20:11)
--- NOTE | 2021-08-19 10:38 | PM.CNCAR ---
Assessment and Plan Assessment and plan (1) Chest pain at rest: Code(s): R07.9 - Chest pain, unspecified Status: Acute Assessment and Plan: Atypical with some typical features with pressure-like description occasional radiating down the left arm occurring at rest with not brought on by exertion partially improved but not resolved with nitroglycerin, worse with movement, deep breathing and coughing noted at first turning over in bed night before. Serial troponins negative EKG without acute ischemic changes. Coronary angiography April 2021 stable moderate nonobstructive disease patent stents no change compared to prior angiogram 5 years before. Patient lou description of musculoskeletal/noncardiac component. Patient still notes some residual discomfort with deep breathing and more prominently right lower flank pain posteriorly more similar to prior nephrolithiasis this patient describes. No further invasive cardiovascular workup indicated at this time. Continue antianginal therapy with beta krystal, nitrates. Patient will follow-up with me in the office within the next 2-4 weeks (2) CAD (coronary artery disease): Qualifiers: Coronary Disease-Associated Artery/Lesion type: [place] artery [place] vs. transplanted heart: [place] heart Associated angina: with other forms of angina Qualified Code(s): I25.118 - Atherosclerotic heart disease of [place] coronary artery with other forms of angina pectoris Code(s): I25.10 - Atherosclerotic heart disease of [place] coronary artery without angina pectoris Status: Chronic Assessment and Plan: As above, continue current medical therapy with aspirin 81 mg daily, Xarelto 2.5 mg twice daily given history of CAD and peripheral arterial disease cardiovascular risk reduction, as well as statin therapy. (3) Vasovagal syncope: Code(s): R55 - Syncope and collapse Status: Acute Assessment and Plan: Secondary to use of nitroglycerin, antihypertensives, oral and sublingual nitroglycerin, intravascular volume depletion after mowing the lawn and warm shower subsequently with brief loss of consciousness with prodrome of dizziness, lightheadedness, imbalance and documented relative hypotension initially. Cautious IV fluids as appropriate. Check orthostatics. No evidence for tachy-lexie arrhythmia thus far on telemetry. He has a loop recorder which can be interrogated but doubtful arrhythmic contribution based on history. (4) Right flank pain: Code(s): R10.9 - Unspecified abdominal pain Status: Acute Assessment and Plan: Per primary service. Patient reports similar to history of kidney stones requiring stent implantation. Defer workup to Medicine in this regard. (5) TAMIR on CPAP: Code(s): G47.33 - Obstructive sleep apnea (adult) (pediatric); Z99.89 - Dependence on other enabling machines and devices Status: Chronic Assessment and Plan: Compliance with CPAP. (6) Type 2 diabetes mellitus: Qualifiers: Diabetes mellitus care home insulin use: with care home use Diabetes mellitus complication status: with circulatory complication Code(s): E11.9 - Type 2 diabetes mellitus without complications Status: Acute Assessment and Plan: Per primary service. (7) HTN (hypertension): Qualifiers: Hypertension type: secondary to endocrine disorders Qualified Code(s): I15.2 - Hypertension secondary to endocrine disorders Code(s): I10 - Essential (primary) hypertension Status: Chronic Assessment and Plan: Patient relatively hypotensive. Consider reduction in amlodipine to 5 mg daily or doxazosin to 1 mg q.h.s. as appropriate. Check orthostatic vital signs. History of Present Illness History of Present Illness Consult date/time: Date of service: 08/19/21 10:38 Requesting physician: Moira Olson PA-C Reason For Visit: Chest Pain, Syncope Narrative: P
[2021-08-19 11:28] LABS: Glucose Point of Care 324 mg/dl (65-105)
[2021-08-19 11:28] LABS: Glucose Point of Care 305 mg/dl (65-105)
[2021-08-19] MEDS: INSULIN ASPART (*BKC) 100 UNITS/ML SUB-Q ×2 (12:45→16:35)
[2021-08-19] MEDS: ONDANSETRON INJ 4 MG/2 ML VIAL IV PUSH ×2 (12:45→16:34)
--- NOTE | 2021-08-19 13:45 | PC.NURSE ---
This patient, Vini Zambrano, was received from [214/ ] on 08/19/21 at 1340. Patient/family oriented to unit policies and routines
--- NOTE | 2021-08-19 13:54 | PC.NURSE ---
This patient, Vini Zambrano, was transferred to [facility] on 08/19/21 at 1335. Personal belongings sent with patient. Report given to Jil YOON. Appropriate documentation sent with patient.
[2021-08-19 16:27] LABS: Glucose Point of Care 236 mg/dl (65-105)
[2021-08-19 20:04] LABS: Glucose Point of Care 199 mg/dl (65-105)
[2021-08-19] MEDS: ATORVASTATIN 40 MG TABLET 80 MG PO (20:11)
[2021-08-19] MEDS: DOXAZOSIN MESYLATE 2 MG TABLET PO (20:11)
[2021-08-20] MEDS: HYDROcodone/acetaminophen (*CRX) 5-325 MG TABLET 1 TAB PO ×2 (02:42→09:19)
[2021-08-20 02:53] VITALS: PULSE 69; RESP 19; O2SAT 96
[2021-08-20] MEDS: ONDANSETRON INJ 4 MG/2 ML VIAL IV PUSH ×2 (04:46→13:46)
--- NOTE | 2021-08-20 07:52 | PM.DS ---
DS: Admitting Diagnosis Discharge Date 08/20/21 Admitting Diagnosis Chest Pain DS: Discharge Diagnosis Discharge Diagnosis (1) Chest pain: Code(s): R07.9 - Chest pain, unspecified Status: Acute Assessment and Plan: Troponin negative x 3. EKG unchanged when compared to previous EKG 05/2021. Pain seems to have resolved at this time but did not completely resolve with nitroglycerin. Not reproducible on exam, so costochondritis less likely. May have worsening of GERD. Patient may benefit from workup of H. pylori outpatient as patient would need to be off PPI for two weeks to complete the workup. -Cardiology recommends no additional workup or intervention and follow up in clinic in 2-4 weeks. (2) Right flank pain: Code(s): R10.9 - Unspecified abdominal pain Status: Acute Assessment and Plan: Hx of multiple episodes of nephrolithiasis and says he was on a medication for treatment for approximately 4 months before discontinuation due to it not working. May benefit from seeing [facility]. UA positive for RBCs but negative for blood. Urine culture is pending. Of note, four urine cultures reviewed back to 05/30/2019 and all had no growth. CT abdomen pelvis showed 5 x 7 mm distal left ureteral stone and no left hydronephrosis and no stones on the right. It should be noted that initially the patient reported left flank pain but after being made aware of the CT results by staff, the patient then reported he was confused about his pain saying it was now on the right and that he thought his diverticulitis (which has not been diagnosed during this hospitalization) was causing him to think he had right sided pain when it was actually left sided pain. Discussed with the patient that the stone was non -obstructing and prior to this morning was an incidental finding as the patient was not symptomatic at the time the CT was ordered. Patient reported established care with Urology and that his next follow up was in November or December. Advised patient to call the Urology office to have appointment within the next 1-2 weeks given his concerns and the CT results. Patient had no urinary symptoms, was afebrile and had no signs of infection at the time of discharge. -Follow up outpatient with Urology in 1-2 weeks (3) Type 2 diabetes mellitus: Qualifiers: Diabetes mellitus terminologist insulin use: with terminologist use Diabetes mellitus complication status: with circulatory complication Code(s): E11.9 - Type 2 diabetes mellitus without complications Status: Acute Assessment and Plan: Continue dulaglutide. Metformin held while inpatient but will resume for discharge. (4) Hypertension: Code(s): I10 - Essential (primary) hypertension Status: Acute Assessment and Plan: Continue carvedilol and isosorbide mononitrate. (5) Obstructive sleep apnea on CPAP: Code(s): G47.33 - Obstructive sleep apnea (adult) (pediatric); Z99.89 - Dependence on other enabling machines and devices Status: Acute Assessment and Plan: May use home CPAP. (6) Tobacco abuse: Code(s): Z72.0 - Tobacco use Status: Chronic (7) Vasovagal syncope: Code(s): R55 - Syncope and collapse Status: Acute Assessment and Plan: Currently asymptomatic. This was likely multifactorial due to nitroglycerin, dehydration. Patient follows with Cardiology outpatient and had been seen about a week prior to presentation in the ED. No hx of . Mild anemia is stable with no signs of bleeding. BP low at presentation but now improved. All home medications for BP were given this morning and patient is currently asymptomatic. Plan DS: Summary Hospital Course Reason for hospitalization: Chest pain and syncope Hospital Course: 61M with past medical history of stroke, CAD s/p PCI, PAD, CHF, depression, diabetes, hypertension, nephrolithiasis, TMAIR on
[2021-08-20] MEDS: TAMSULOSIN HCL 0.4 MG CAPSULE PO (08:05)
[2021-08-20] MEDS: RIVAROXABAN 2.5 MG TABLET PO (08:05)
[2021-08-20] MEDS: ISOSORBIDE MONONITRATE 60 MG TAB.ER.24H PO (08:05)
[2021-08-20] MEDS: amLODIPine BESYLATE 5 MG TABLET 10 MG PO (08:05)
[2021-08-20] MEDS: carvediloL 25 MG TABLET PO (08:05)
[2021-08-20] MEDS: PANTOPRAZOLE 40 MG TABLET PO (08:05)
[2021-08-20] MEDS: buPROPion HCL SR (12 HR) 150 MG TAB PO (08:05)
[2021-08-20 08:06] LABS: Glucose Point of Care 120 mg/dl (65-105)
[2021-08-20] MEDS: ASPIRIN 81 MG CHEWABLE TABLET PO (10:01)
[2021-08-20 12:00] LABS: Glucose Point of Care 255 mg/dl (65-105)
[2021-08-20] MEDS: MORPHINE SULFATE (*CRX) 2 MG/ML INJ IV PUSH (12:25)
[2021-08-20] MEDS: INSULIN ASPART (*BKC) 100 UNITS/ML SUB-Q (12:26)
[2021-08-20 14:15] VITALS: BP 120/77; PULSE 65; RESP 16; TEMP 35.8; O2SAT 98
== END 2021-08-20 16:30 | disposition home or self-care (01) | DRG 312 ==
LOC: ANHED 14:28 → ANHIMU 16:15 → ANH3MEDSUR 08-19 12:58
PROVIDERS: Emergency Medicine; Physician Assistant; Admitting Provider Chiropractor; Emergency Provider Emergency Medicine; PCP Registered Nurse; Visit Provider Family Medicine
DX: R55 Syncope and collapse (principal); I69.354 Hemiplegia and hemiparesis following cerebral infarction affecting left non-dominant side; Z68.41 Body mass index [BMI] 40.0-44.9, adult; T46.3X5A Adverse effect of coronary vasodilators, initial encounter; E86.0 Dehydration; R07.89 Other chest pain; K21.9 Gastro-esophageal reflux disease without esophagitis; G47.33 Obstructive sleep apnea (adult) (pediatric); I73.9 Peripheral vascular disease, unspecified; I11.0 Hypertensive heart disease with heart failure; I50.9 Heart failure, unspecified; J44.9 Chronic obstructive pulmonary disease, unspecified; E11.42 Type 2 diabetes mellitus with diabetic polyneuropathy; F41.9 Anxiety disorder, unspecified; E78.5 Hyperlipidemia, unspecified; L40.9 Psoriasis, unspecified; M19.90 Unspecified osteoarthritis, unspecified site; F17.210 Nicotine dependence, cigarettes, uncomplicated; D64.9 Anemia, unspecified; E66.9 Obesity, unspecified; I25.2 Old myocardial infarction; Z86.16 Personal history of COVID-19; Z86.718 Personal history of other venous thrombosis and embolism; Z95.5 Presence of coronary angioplasty implant and graft; Z90.49 Acquired absence of other specified parts of digestive tract; Z79.01 Long term (current) use of anticoagulants; Z87.442 Personal history of urinary calculi
CPT/HCPCS: 36415; 71046; 74176; 80053; 81001; 82948; 83690; 83735; 84132; 84443; 84484; 85025; 85027; 85055; 85610; 85730; 86140; 87086; 93005; 94640; 94660; 96374; 96375; 96376; 99285; A9270; G0378; J0131; J1815; J2270; J2405

== ENCOUNTER 2021-08-21 10:23 | Day surgery (SDC) | payer MEDICARE, MEDICAID, SELFPAY ==
[2021-08-21] VITALS (8 sets, daily range): BP systolic 134–179; BP diastolic 70–93; PULSE 71–79; RESP 18–26; TEMP 36.3–36.6; O2SAT 96–100; BMI 43.4
--- NOTE | ~2021-08-21 | XR_ITS ---
EXAMINATION: XR retrograde pyelogram LT DATE: 08/21/2021 16:00 CDT INDICATION: LEFT SIDE RETROGRADE W/ STONE EXTRACTION . TECHNIQUE: 106 fluoroscopic images of the abdomen and pelvis were obtained during left retrograde olvin lography and stone extraction performed by the surgeon. I was not present in the operating room. Fluo roscopy exposure time was 77.3 seconds. Cumulative dose was 3.17 mGy2. COMPARISON: CT abdomen pelvis 08/19/2021. FINDINGS: Cannulation and wire access into the left collecting system. IMPRESSION: Fluoroscopic documentation of left retrograde pyelography and stone extraction. Reviewed, dictated and finalized at location K.
--- NOTE | 2021-08-21 11:23 | PC.NURSE ---
Report to the Outpatient Waiting Room, entrance under the green pavilion located off [facility], at time 1230 on 08-21-21. OR Time: 1430. - You and your visitor will be asked a series of questions to screen for COVID 19 for your protection. - Only one visitor is allowed at this time. - The patient visitor is requested to leave or wait in car when not with patient. - A mask is required within the hospital. Patients may have clear liquids (water, carbonated beverages, clear teas, apple juice) until 3 hours prior to surgery with a maximum of 20 ounces. - No food from midnight until time of surgery - Infants may have breast milk until 4 hours before surgery, infant formula 6 hours prior to surgery. - Children will be allowed to drink immediately following surgery. If applicable, please bring a bottle or sippy cup to assist with drinking. Juice, water, soda, and popsicles are readily available. For infants on formula, please bring formula the day of surgery. Pacifiers are allowed. Take the following medications with a SIP of water the morning of surgery: amlodipine, wellbutrin, carvedilol, amoxicillin, Percocet if needed Medications to discontinue per physician: aspirin, xarelto Date to take last dose: Hold today Please no make-up, nail cymro, hairspray, perfume, deodorant, or body powder the day of surgery. No jewelry (including any body piercings) or valuables the day of surgery, leave them at home. Please take a shower or bath the night before, or the morning of, surgery with an antibacterial soap. Wear comfortable, loose fitting clothing. Children are encouraged to wear pajamas. - Jewelry must be removed prior to entering the operating room. Rings and piercings that are not removed may be cut off. - The hospital will not accept responsibility for valuables. - Please leave all valuables, including medications, at home the day of surgery. If you are going home after surgery, a licensed skip load driver must drive you home. - NO public transportation without another adult. - We recommend that an adult stay with you for 24 hours following discharge. - We also recommend that you do not drive, make important decision, drink alcoholic beverages, or take any drugs that were not prescribed by your health care provider for at least 24 hours after your discharge time. For Pediatric surgeries, we recommend two adults accompany the child home (only one inside the building at this time). Follow any additional instructions given to you from your surgeon. If you or anyone in your household have experienced Covid symptoms in the past week, please notify your surgeon or the nurse liaison at the phone number below for possible testing. Telephone instructions given to Vini Zambrano and asked if any additional questions and then verbalized understanding. Patient advised to call surgeon office or pre surgery nurse liaison [phone] if any additional questions.
[2021-08-21] MEDS: ACETAMINOPHEN 500 MG TABLET 1000 MG PO (13:07)
[2021-08-21] MEDS: LACTATED RINGERS 1,000 ML 30 ML IV CONT (13:08)
--- NOTE | 2021-08-21 13:42 | WPDANESEPPF ---
Anes - Initial Pre Proc Eval Procedure: Operation Date: 08/21/21 14:30 Proposed Procedures p Cystoscopy, Left Ureteroscopy, Left Retrograde Pyelogram, Left Stone Extraction, Left Stent Placement, Possible Holmium Laser Procedure - Zenia Hines MD Date/Time: 08/21/21 13:42 Surgeon: Zenia Hines MD Pre Op Diagnosis: left ureteral stone Patient Data Age: 61 Gender: M Height: 1.83 m Weight: 145.5 kg Last Vital Signs Temp 36.6 C 08/21/21 12:47 Pulse 76 08/21/21 12:47 Resp 20 08/21/21 12:47 BP 146/80 H 08/21/21 12:47 Pulse Ox 97 08/21/21 12:47 O2 Del Method Room Air 08/21/21 12:47 Allergies Allergy/AdvReac Type Severity Reaction Status Date / Time No Known Allergies Allergy Unknown Verified 08/21/21 12:40 Home Medications Medication Instructions Recorded Confirmed Type amlodipine 10 mg tablet 10 mg PO DAILY 01/24/19 08/21/21 History bupropion HCl 150 mg tablet,12 hr 150 mg PO BID 01/24/19 08/21/21 History sustained-release (Wellbutrin SR) doxazosin 2 mg tablet (Cardura) 2 mg PO HS 01/24/19 08/21/21 History dulaglutide 1.5 mg/0.5 mL 1.5 mg subcut WEEKLY 01/24/19 08/21/21 History subcutaneous pen injector (Trulicity) metformin 1,000 mg tablet 1,000 mg PO BID 01/24/19 08/21/21 History rivaroxaban 2.5 mg tablet (Xarelto) 2.5 mg PO BID 01/24/19 08/21/21 History aspirin 81 mg chewable tablet 81 mg PO DAILY@0800 #30 tabs 03/13/19 08/21/21 Rx (Children's Aspirin) omeprazole 40 mg capsule,delayed 40 mg PO DAILY 04/13/19 08/21/21 History release carvedilol 25 mg tablet (Coreg) 25 mg PO BID 04/28/19 08/21/21 History atorvastatin 40 mg tablet 80 mg PO DAILY 05/16/19 08/21/21 History albuterol sulfate 90 mcg/actuation 2 puff inhalation Q4-6H PRN 01/09/20 08/21/21 History aerosol inhaler (Ventolin HFA) Shortness Of Breath budesonide-formoterol HFA 160 2 puff inhalation BID 01/09/20 08/21/21 History mcg-4.5 mcg/actuation aerosol inhaler (Symbicort) isosorbide mononitrate 60 mg 120 mg PO DAILY 01/09/20 08/21/21 History tablet,extended release 24 hr loratadine 10 mg tablet (Claritin) 10 mg PO DAILY 03/15/20 08/21/21 History ondansetron 4 mg disintegrating 4 mg PO Q8H PRN nausea and 07/11/21 08/21/21 Rx tablet vomiting 7 days #20 tabs oxycodone-acetaminophen 5 mg-325 1 tablet PO Q6H PRN pain 5 days 07/11/21 08/21/21 Rx mg tablet (Percocet) #14 tabs alprazolam 0.25 mg tablet 0.25 mg PO HS 08/21/21 08/21/21 History amoxicillin 875 mg-potassium 1 tablet PO BID 08/21/21 08/21/21 History clavulanate 125 mg tablet montelukast 10 mg tablet 1 tablet PO HS 08/21/21 08/21/21 History Patient hx anesthesia problems: none Family hx anesthesia problems: none Results Review: All pre-operative results and documents have been reviewed as part of the pre-operative evaluation. [facility] Past Medical History Medical History Anxiety Arthritis 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 Chronic anticoagulation Chronic obstructive pulmonary disease Congestive heart failure Coronary artery disease Deep venous thrombosis Depression Diabetic peripheral neuropathy Eczema Gastric ulcer Gastroesophageal reflux disease GI bleed Hearing loss Hyperlipidemia Hypertension Kidney stones Medial meniscus tear Myocardial infarction Nausea and vomiting Obstructive sleep apnea on CPAP Peripheral vascular disease Pneumonia Psoriasis Rectal polyp Seasonal allergies Transient ischemic attack Type 2 diabetes mellitus Surgical History Surgical History History of cardiac catheterization 2 stents History of cholecystectomy History of heart artery stent X2. History of lithotripsy History of loop recorder History of rectal polypectomy History of tonsillectomy Family History Family History (Reviewed 08/21/21
--- NOTE | 2021-08-21 13:58 | WPDHPUPDATE1 ---
History and Physical Update Update Date/Time: 08/21/21 13:58 History and Physical has been reviewed, including an updated exam of the patient. There are NO changes in the patient's condition. Risks, benefits, and alternatives have been discussed and questions answered. Patient agrees to proceed with procedure.
[2021-08-21 15:45] LABS: Glucose Point of Care 153 mg/dl (65-105)
--- NOTE | 2021-08-21 15:49 | WPDHPUPDATE1 ---
History and Physical Update Update Date/Time: 08/21/21 15:49 History and Physical has been reviewed, including an updated exam of the patient. There are NO changes in the patient's condition. Risks, benefits, and alternatives have been discussed and questions answered. Patient agrees to proceed with procedure. -plan left ureteroscopy, laser lithotripsy, retrograde pyelogram, stone extraction, possible stent insertion
[2021-08-21] MEDS: ceFAZolin 3 GM/D5W 100 ML 100 ML IVPB (15:54)
[2021-08-21] MEDS: LIDOCAINE HCL 2% GEL UROJET 10 ML PKG MUCOUS MEM (16:13)
--- NOTE | 2021-08-21 16:35 | SUR.PHASEI ---
oral airway removed at 1632
[2021-08-21] MEDS: fentaNYL CITRATE INJ (*CRX) 100 MCG/2 ML VIAL 25 MCG IV PUSH (16:44)
[2021-08-21 16:45] LABS: Glucose Point of Care 151 mg/dl (65-105)
--- NOTE | 2021-08-21 16:51 | W.PM.PROC2 ---
Procedure Note - Detailed Date of Procedure 08/21/21 Pre-op Diagnosis left ureteral stone Post-op Diagnosis Same Procedure Performed Cystoscopy, left ureteroscopy, left ureteral stone extraction Surgeon Zenia Hines MD Findings Distal left ureteral stone Description of Procedure Informed consent was obtained. Patient taken the operating. He was given preoperative IV antibiotics. He was induced with anesthesia. A 22 F rigid cystoscope was inserted via urethra into the bladder, of note the patient did have moderate to severe prostatic hyperplasia. Patient had bilateral orthotopic ureteral orifices. Cannulated left ureteral orifice and then dilated with an 810 coaxial dilator. We then advanced a semi rigid ureteral scope in the distal ureter and encountered the stone in the distal ureter approximately 2cm above ureterovesical junction. The stone was grasped with ZeroTip basket and removed. Stone was sent as specimen. We then advanced the rigid scope inspected the distal 3rd of the ureter and there were no residual stones. A retrograde pyelogram was performed showing moderate left hydronephrosis , contrast easily drained down the length of the ureter into the bladder. As there was minimal manipulation and laser lithotripsy was not required, we elected not to place a ureteral stent. The safety wire was removed. Bladder was emptied 10cc of lidocaine was instilled. Patient was awakened taken recovery room stable condition Pathology Yes Complications No immediate complications Condition Stable Disposition PACU
[2021-08-21] MEDS: oxyCODONE HCL (*CRX) 5 MG TAB IR PO (18:03)
--- NOTE | 2021-08-21 18:09 | SUR.PHASEII ---
RN called pharmacy to check and see if any prescriptions were sent there for pain medicine. They were not so RN called Dr. Hines and he said he will send more to pharmacy in about an hour or so.
--- NOTE | 2021-08-21 18:39 | SUR.PHASEII ---
Patient hasn't taken any of his BP meds today.
--- NOTE | 2021-08-21 18:43 | SUR.PHASEII ---
Patient may resume aspirin and xarelto right away per Dr. Hines.
== END 2021-08-21 18:28 | disposition home or self-care (01) ==
PROVIDERS: PCP Registered Nurse; Visit Provider Urology
PROC: (CPT 52352; principal; 2021-08-21 14:30)
DX: N13.2 Hydronephrosis with renal and ureteral calculous obstruction (principal); I69.354 Hemiplegia and hemiparesis following cerebral infarction affecting left non-dominant side; E11.42 Type 2 diabetes mellitus with diabetic polyneuropathy; J44.9 Chronic obstructive pulmonary disease, unspecified; I11.0 Hypertensive heart disease with heart failure; I50.9 Heart failure, unspecified; K21.9 Gastro-esophageal reflux disease without esophagitis; F32.A Depression, unspecified; F41.9 Anxiety disorder, unspecified; E78.5 Hyperlipidemia, unspecified; I25.2 Old myocardial infarction; G47.33 Obstructive sleep apnea (adult) (pediatric); E11.51 Type 2 diabetes mellitus with diabetic peripheral angiopathy without gangrene; L40.9 Psoriasis, unspecified; Z86.718 Personal history of other venous thrombosis and embolism; I25.10 Atherosclerotic heart disease of native coronary artery without angina pectoris; Z79.82 Long term (current) use of aspirin; Z79.84 Long term (current) use of oral hypoglycemic drugs; Z79.899 Other long term (current) drug therapy; Z79.01 Long term (current) use of anticoagulants; Z79.51 Long term (current) use of inhaled steroids; Z79.891 Long term (current) use of opiate analgesic; Z95.5 Presence of coronary angioplasty implant and graft; F17.210 Nicotine dependence, cigarettes, uncomplicated; E66.01 Morbid (severe) obesity due to excess calories; Z68.41 Body mass index [BMI] 40.0-44.9, adult
CPT/HCPCS: 52352; 74420; 82365; 82948; 88300; A9270; C1769; J0690; J2250; J2405; J2704; J3010; J7120; Q9966

== ENCOUNTER 2021-09-29 14:19 | Observation (INO) | payer MEDICARE, MEDICAID, SELFPAY ==
[2021-09-29] VITALS (19 sets, daily range): BP systolic 108–135; BP diastolic 68–80; PULSE 64–78; RESP 15–24; TEMP 36.1–36.7; O2SAT 95–100; BMI 38.8
--- NOTE | ~2021-09-29 | XR_ITS ---
EXAMINATION: XR chest 2V Exam Date/Time: 09/29/2021 15:00 CDT HISTORY: Chest pain Comparison: 08/18/2021. RESULT: Lines, tubes, and devices: Loop recorder. Lungs and pleura: Streaky bibasilar opacities. Cardiomediastinal silhouette: Stable. Other: No acute osseous or upper abdominal finding. IMPRESSION: Minimal bilateral basilar atelectasis/scar. Reviewed, dictated and finalized at location K.
--- NOTE | 2021-09-29 14:20 | ECG_ITS ---
Measurements Intervals [place] Rate: 78 P: 53 VT: 149 QRS: 15 QRSD: 149 T: 18 QT: 407 QTc: 465 Interpretive Statements SINUS RHYTHM RIGHT BUNDLE BRANCH BLOCK CONSIDER INFERIOR INFARCT, AGE INDETERMINATE ABNORMAL ECG Electronically Signed On 09-29-2021 14:44:28 CDT by Mathew Landon D.O.
[2021-09-29 14:43] LABS: Basophils Percent Auto 0.1 % (0.2-1.2); Eosinophils Absolute Auto 0.1 K/mm3 (0-0.3); Eosinophils Percent Auto 1.5 % (0-4.4); Hematocrit 40.2 % (42.0-52.0); Hemoglobin 13.5 g/dL (14.0-18.0); Immature Granulocyte Absolute 0.02 K/mm3 (0.00-0.031); Immature Granulocyte Percent A 0.3 % (0-0.5); Immature Platelet Fraction Pct 6.8 % (0.9-11.2); Lymphocytes Absolute Auto 1.35 K/mm3 (0.9-3.2); Lymphocytes Percent Auto 19.6 % (18.3-44.2); Mean Corpuscular HGB Conc 33.6 g/dl (32-36); Mean Corpuscular Hemoglobin 29.9 pg (26-34); Mean Corpuscular Volume 88.9 fl (80-100); Mean Platelet Volume 10.4 fl (7.4-10.4); Monocytes Absolute Auto 0.5 K/mm3 (0.1-0.6); Monocytes Percent Auto 7.4 % (2.6-8.5); Neutrophils Absolute Auto 4.9 K/mm3 (1.3-6.7); Neutrophils Percent Auto 71.1 % (45.5-73.1); Platelet Count Result 154 k/mm3 (150-375); Red Blood Count 4.52 M/mm3 (4.6-6.20); Red Cell Distribution Width 13.3 % (11.5-14.5); White Blood Count 6.9 K/mm3 (4.5-10.0)
[2021-09-29 14:50] LABS: Alanine Aminotransferase 39 U/L (6-50); Albumin Level 4.2 g/dL (3.5-5.1); Alkaline Phosphatase 66 U/L (38-126); Anion Gap 14 mmol/L (8-16); Aspartate Amino Transferase 37 U/L (17-59); Bilirubin,Total 0.6 mg/dL (0.2-1.3); Blood Urea Nitrogen 16 mg/dL (9-20); Calcium 9.4 mg/dL (8.4-10.2); Carbon Dioxide 23 mmol/L (22-30); Chloride 101 mmol/L (98-107); Estimated CRCL calculation 91 ml/min; Estimated Glomerular Filt Rate > 60; Glucose 167 mg/dL (65-110); INR 1.2; Lipase 191 U/L (23-300); Potassium 4.3 mmol/L (3.4-5.0); Prothrombin Time 14.6 Seconds (11.1-14.7); Sodium 138 mmol/L (137-145)
[2021-09-29 14:51] LABS: Partial Thromboplastin Time 33.1 SECONDS (22.3-36.8)
[2021-09-29 15:01] LABS: Troponin I < 0.012 ng/mL (0.000-0.034)
--- NOTE | 2021-09-29 16:59 | ED.CHESTPAIN ---
HPI - Chest Pain General Chief Complaint: Chest Pain Stated Complaint: chest pain Time Seen by Provider: 09/29/21 16:36 History of Present Illness HPI narrative: Patient is a 61-year-old male with history of heart disease who presents ER with chest pain. Reports 6 episodes of chest pain today each resolving with nitroglycerin. Pressure that radiates to neck and left arm. Most recent cath unchanged for the last 5 years and was performed in April 2021. Patient recently had his isosorbide mononitrate increased to help with his microvascular chest discomfort. No exertional component to his chest pain today. No fevers chills or sweats. No cough. Related Data Home Medications Medication Instructions Recorded Confirmed amlodipine 10 mg tablet 10 mg PO DAILY 01/24/19 08/21/21 bupropion HCl 150 mg tablet,12 hr 150 mg PO BID 01/24/19 08/21/21 sustained-release (Wellbutrin SR) doxazosin 2 mg tablet (Cardura) 2 mg PO HS 01/24/19 08/21/21 dulaglutide 1.5 mg/0.5 mL 1.5 mg subcut WEEKLY 01/24/19 08/21/21 subcutaneous pen injector (Trulicity) metformin 1,000 mg tablet 1,000 mg PO BID 01/24/19 08/21/21 rivaroxaban 2.5 mg tablet (Xarelto) 2.5 mg PO BID 01/24/19 08/21/21 omeprazole 40 mg capsule,delayed 40 mg PO DAILY 04/13/19 08/21/21 release carvedilol 25 mg tablet (Coreg) 25 mg PO BID 04/28/19 08/21/21 atorvastatin 40 mg tablet 80 mg PO DAILY 05/16/19 08/21/21 albuterol sulfate 90 mcg/actuation 2 puff inhalation Q4-6H PRN 01/09/20 08/21/21 aerosol inhaler (Ventolin HFA) Shortness Of Breath budesonide-formoterol HFA 160 2 puff inhalation BID 01/09/20 08/21/21 mcg-4.5 mcg/actuation aerosol inhaler (Symbicort) isosorbide mononitrate 60 mg 120 mg PO DAILY 01/09/20 08/21/21 tablet,extended release 24 hr loratadine 10 mg tablet (Claritin) 10 mg PO DAILY 03/15/20 08/21/21 alprazolam 0.25 mg tablet 0.25 mg PO HS 08/21/21 08/21/21 amoxicillin 875 mg-potassium 1 tablet PO BID 08/21/21 08/21/21 clavulanate 125 mg tablet montelukast 10 mg tablet 1 tablet PO HS 08/21/21 08/21/21 Allergies Allergy/AdvReac Type Severity Reaction Status Date / Time No Known Allergies Allergy Unknown Verified 08/21/21 12:40 Review of Systems Review of Systems: All systems reviewed & are unremarkable except as noted in HPI and below Constitutional: Constitutional: Denies chills and Denies fever(s) Cardiovascular: Cardiovascular: Reports chest pain, Denies rapid heart rate and Reports radiating jaw, neck or arm pain Respiratory: Respiratory: Denies chest congestion, Denies cough and Denies dyspnea Gastrointestinal: Gastrointestinal: Denies abdominal pain, Denies nausea and Denies vomiting Neurologic: Denies headache(s), Denies focal weakness and Denies numbness PMFSH Past Medical History Medical History Anxiety Arthritis 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 Chronic anticoagulation Chronic obstructive pulmonary disease Congestive heart failure Coronary artery disease Deep venous thrombosis Depression Diabetic peripheral neuropathy Eczema Gastric ulcer Gastroesophageal reflux disease GI bleed Hearing loss Hyperlipidemia Hypertension Kidney stones Medial meniscus tear Myocardial infarction Nausea and vomiting Obstructive sleep apnea on CPAP Peripheral vascular disease Pneumonia Psoriasis Rectal polyp Seasonal allergies Transient ischemic attack Type 2 diabetes mellitus Surgical History Surgical History History of cardiac catheterization 2 stents History of cholecystectomy History of heart artery stent X2. History of lithotripsy History of loop recorder History of rectal polypectomy History of tonsillectomy Family History Family History Mother Diabetes mellitus Kidney stones
[2021-09-29] MEDS: ASPIRIN 81 MG CHEWABLE TABLET 324 MG PO (17:23)
[2021-09-29] MEDS: NITROGLYCERIN SL 0.4 MG TABLET SUBLINGUAL (17:29)
--- NOTE | 2021-09-29 17:45 | PM.IMHP ---
H&P: HPI History of Present Illness Date/Time: 09/29/21 17:45 Chief Complaint: Chest pain. Narrative: This is a pleasant 61-year-old male with multiple medical problems including history of stroke, diabetes, coronary artery disease, peripheral vascular disease, congestive heart failure, and several other comorbidities who presented to the emergency department for evaluation of chest pain. His last cardiac catheterization was in April 2021 which showed stable disease however he continues to have intermittent episodes of angina for which he was started on isosorbide mononitrate which seems to have decreased the frequency of his chest pain. This morning he awoke at 02:00 to use the restroom and at that time he noticed an aching heaviness in the substernal chest region consistent with prior episodes of angina. He took nitroglycerin with some benefit and was able to go back to sleep. After he was up for the day he continued to have episodes of chest pain and after he took his 7th sublingual nitroglycerin he decided to come in for evaluation. His EKG is essentially unchanged from prior tracings and he has had 2 negative troponins at the time of this dictation. Due to ongoing pain it was felt that he would benefit from overnight monitoring and Cardiology consultation. His chest pain is associated with mild shortness of breath but he denies nausea, vomiting, and sweats. He also denies syncope, presyncope, pleuritic pain, and palpitations. Review of Systems Review of Systems: Twelve systems were reviewed and are negative except for as per HPI. 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 Chronic anticoagulation Chronic obstructive pulmonary disease Congestive heart failure Coronary artery disease Deep venous thrombosis Depression Diabetic peripheral neuropathy Eczema Gastric ulcer Gastroesophageal reflux disease GI bleed Hearing loss Hyperlipidemia Hypertension Kidney stones Medial meniscus tear Myocardial infarction Nausea and vomiting Obstructive sleep apnea on CPAP Peripheral vascular disease Pneumonia Psoriasis Rectal polyp Seasonal allergies Transient ischemic attack Type 2 diabetes mellitus Surgical History Surgical History History of cardiac catheterization 2 stents History of cholecystectomy History of heart artery stent X2. History of lithotripsy History of loop recorder History of rectal polypectomy History of tonsillectomy Family History Family History Mother Diabetes mellitus Kidney stones Arthritis Father Acute myocardial infarction Heart disease Kidney stones Hypertension Sibling Coronary artery disease Heart disease Hx of CABG Social History Social History Social History: Surrogate decision maker: Rena Yousif, friend. Code status: Full code. Smoking packs per day: 0.25 Smoking cigarettes per day: 5.0 Years smoked: 42 Smoking pack-years: 10.50 Smoking status: Current every day smoker Tobacco type: cigarettes Second hand tobacco smoke exposure: No Alcohol intake: never Substance use: never Substance use type: does not use Additional living arrangements comments: The patient lives in [place] with a roommate. He has no children. Additional occupation/education comments: Disabled. Spiritual care concerns: No Meds Home Medications and Allergies Home Medications Medication Instructions Recorded Confirmed Type amlodipine 10 mg tablet 10 mg PO DAILY 01/24/19 09/29/21 History bupropion HCl 150 mg tablet,12 hr 150 mg PO BID 01/24/19 09/29/21 History sustained-release (Wellbutrin SR)
[2021-09-29 18:21] LABS: Troponin I < 0.012 ng/mL (0.000-0.034)
[2021-09-29] MEDS: HYDROmorphone HCL INJ (*CRX) 1 MG/ML SYR 0.5 MG IV PUSH (18:27)
--- NOTE | 2021-09-29 20:11 | PC.NURSE ---
RN attempted to call floor for report. Floor states they had a rapid response and a code purple and are to busy and will call back.
[2021-09-29 20:44] LABS: Troponin I < 0.012 ng/mL (0.000-0.034)
[2021-09-29] MEDS: MORPHINE SULFATE (*CRX) 4 MG/ML INJ IV PUSH (22:26)
--- NOTE | 2021-09-29 23:09 | PC.NURSE ---
This patient, Vini Zambrano, was admitted to IMU Room 200-01. Patient/family oriented to hospital policies and general routines including ID bracelet, bed and alarms, visiting hours, pain management, procedures, bathroom and other care routines, personal items, smoking policy, room service/diet, and visiting hours. Information on how to activate the Rapid Response Team has been discussed. Patient/Family are encouraged to report perceived risks to care and to ask questions if they do not understand what they are told or what they should do.
[2021-09-30] VITALS (12 sets, daily range): BP systolic 116–142; BP diastolic 50–83; PULSE 61–87; RESP 16–28; TEMP 35.8–36.4; O2SAT 94–99
[2021-09-30] MEDS: ONDANSETRON INJ 4 MG/2 ML VIAL IV PUSH (00:44)
[2021-09-30 07:42] LABS: Glucose Point of Care 161 mg/dl (65-105)
[2021-09-30] MEDS: FLUTICASONE/SALMETEROL 115-21 MCG INHALER 1 PUFF 2 PUFF INHALATION (08:04)
[2021-09-30] MEDS: amLODIPine BESYLATE 5 MG TABLET 10 MG PO (09:36)
[2021-09-30] MEDS: PANTOPRAZOLE 40 MG TABLET PO (09:36)
[2021-09-30] MEDS: buPROPion HCL SR (12 HR) 150 MG TAB PO (09:36)
[2021-09-30] MEDS: RIVAROXABAN 2.5 MG TABLET PO (09:36)
[2021-09-30] MEDS: ASPIRIN 81 MG CHEWABLE TABLET PO (09:36)
[2021-09-30] MEDS: ISOSORBIDE MONONITRATE 60 MG TAB.ER.24H 120 MG PO (09:36)
[2021-09-30] MEDS: RANOLAZINE 500 MG TAB.ER.12H PO (09:37)
[2021-09-30] MEDS: LORATADINE 10 MG TABLET PO (09:37)
[2021-09-30] MEDS: carvediloL 25 MG TABLET PO (09:37)
--- NOTE | 2021-09-30 09:46 | PM.CNCAR ---
Assessment and Plan Assessment and plan (1) Chest pain: Qualifiers: Chest pain type: other chest pain Qualified Code(s): R07.89 - Other chest pain Code(s): R07.9 - Chest pain, unspecified Status: Acute Assessment and Plan: Recurrent somewhat atypical chest pain occurring randomly without provocation although nitroglycerin responsive most likely consistent microvascular angina no new or acute ischemic change by EKG negative serial cardiac enzymes. Left heart catheterization April 2021 stable nonobstructive disease unchanged prior to coronary angiography 5 years previous. Patient is pain-free at this time. He has ruled out for myocardial infarction negative straight cardiac enzymes. Continue antianginal regimen with beta-krystal, nitrates, amlodipine. Add ranolazine 500 mg twice daily. Counseled on risks versus benefits. Patient in agreement. If chest pain remains controlled tolerating ranolazine patient may be considered for discharge home later today. He will follow-up in the office within 1 month. (2) Coronary artery disease: Qualifiers: Coronary Disease-Associated Artery/Lesion type: [place] artery [place] vs. transplanted heart: [place] heart Associated angina: with other forms of angina Qualified Code(s): I25.118 - Atherosclerotic heart disease of [place] coronary artery with other forms of angina pectoris Code(s): I25.10 - Atherosclerotic heart disease of [place] coronary artery without angina pectoris Status: Acute Assessment and Plan: As above, coronary angiography April 2021 history of previous stenting distal circumflex, proximal LAD patent with small vessel disease distal LAD 2nd diagonal and very small proximal marginal branch is not in minimal to intervention. No indication for repeat ischemic evaluation either invasively or noninvasive. Medical management as above. Continue lifestyle modification and risk factor optimization. Continue carvedilol 25 mg twice daily, Imdur 120 mg daily. Continue aspirin 81 mg daily and Xarelto 2.5 mg twice daily Jardiance 10 mg daily would be an additional excellent addition to his medical regimen reduction cardiovascular risk. (3) Chronic heart failure with preserved ejection fraction (HFpEF): Code(s): I50.32 - Chronic diastolic (congestive) heart failure Status: Acute Assessment and Plan: Well-compensated no acute issues. Doing quite well off diuretic therapy. (4) Hypertension associated with type 2 diabetes mellitus: Code(s): E11.59 - Type 2 diabetes mellitus with other circulatory complications; I15.2 - Hypertension secondary to endocrine disorders Status: Acute Assessment and Plan: BP marginal controlled, little bit elevated this morning. Continue home oral antihypertensive regimen. (5) Mixed diabetic hyperlipidemia associated with type 2 diabetes mellitus: Code(s): E11.69 - Type 2 diabetes mellitus with other specified complication; E78.2 - Mixed hyperlipidemia Status: Acute Assessment and Plan: Atorvastatin 80 mg at bedtime. Goal LDL less than 70. MD management per primary service (6) Obstructive sleep apnea on CPAP: Code(s): G47.33 - Obstructive sleep apnea (adult) (pediatric); Z99.89 - Dependence on other enabling machines and devices Status: Acute Assessment and Plan: Compliance with CPAP, weight loss, and lifestyle modification. History of Present Illness History of Present Illness Consult date/time: Date of service: 09/30/21 09:46 Requesting physician: Moira Olson, P[facility] Reason For Visit: chest pain Narrative: Patient is a very pleasant 61-year-old gentleman with a complex past medical history including prior stroke, type 2 diabetes mellitus, hypertension, morbid obesity, obstructive sleep apnea on CPAP, peripheral arterial disease, chronic heart failure with preserved ejection fraction, and CAD with previously placed s
--- NOTE | 2021-09-30 11:58 | PM.DS ---
DS: Admitting Diagnosis Discharge Date September 30, 2021 Admitting Diagnosis Stable angina DS: Discharge Diagnosis Discharge Diagnosis (1) Chest pain: Qualifiers: Chest pain type: other chest pain Qualified Code(s): R07.89 - Other chest pain Code(s): R07.9 - Chest pain, unspecified Status: Acute Assessment and Plan: stable angina Add Ranexa prior to discharge (2) Coronary artery disease: Qualifiers: Coronary Disease-Associated Artery/Lesion type: [place] artery [place] vs. transplanted heart: [place] heart Associated angina: with other forms of angina Qualified Code(s): I25.118 - Atherosclerotic heart disease of [place] coronary artery with other forms of angina pectoris Code(s): I25.10 - Atherosclerotic heart disease of [place] coronary artery without angina pectoris Status: Acute Assessment and Plan: Stable coronary artery disease on cardiac cath in April 2021. Continue aspirin, statin, beta-krystal, long-acting nitrate. (3) Hypertension: Code(s): I10 - Essential (primary) hypertension Status: Acute Assessment and Plan: Blood pressures were reviewed and they are stable. Continue antihypertensives and monitor daily. (4) Type 2 diabetes mellitus: Qualifiers: Diabetes mellitus residential insulin use: without medical terminologist use Diabetes mellitus complication status: without complication Qualified Code(s): E11.9 - Type 2 diabetes mellitus without complications Code(s): E11.9 - Type 2 diabetes mellitus without complications Status: Chronic Assessment and Plan: Initiate sliding scale insulin, Accu-Cheks, and hypoglycemic protocol. (5) Obstructive sleep apnea on CPAP: Code(s): G47.33 - Obstructive sleep apnea (adult) (pediatric); Z99.89 - Dependence on other enabling machines and devices Status: Acute Assessment and Plan: CPAP will be provided for the patient to use while hospitalized. DS: Summary Hospital Course Hospital Course: Patient was admitted for ANO. Had negative catheterization in April. Cardiology evaluated the patient adjust his anginal medications. Patient is otherwise chest pain-free and can be discharged home Time Spent with Patient Time attestation: Total time spent providing and/or coordinating discharge services: Exam Narrative: General: Well-developed male sitting up in bed in no acute distress. HEENT: Wearing glasses. PERRL, EOMI. Conjunctivae anicteric. Oral mucosa moist. Neck: Supple. Respiratory: Lungs are clear to auscultation bilaterally. Cardiovascular: Regular rate and rhythm with S1-S2. Chest: No tenderness to palpation over the chest wall. Gastrointestinal: Abdomen is soft, obese, nontender, and nondistended with positive bowel sounds. Skin: Warm and dry. Extremities: No cyanosis, clubbing, or significant edema. Radial and pedal pulses intact. Neurological: Alert. Cranial nerves 2-12 are grossly intact. No gross focal deficits to casual conversation. Psychiatric: Pleasant and cooperative with appropriate mood and affect. DS: Data Data Completed and Pending Labs on day of discharge: Labs from last 24 hours 09/30/21 09/29/21 09/29/21 07:22 20:13 17:50 WBC RBC Hgb Hct MCV MCH MCHC RDW Plt Count MPV Immature Gran % (Auto) Neut % (Auto) Lymph % (Auto) [place] % (Auto) Eos % (Auto) Baso % (Auto) Lymph # (Auto) [place] # (Auto) Eos # (Auto) Baso # (Auto) Abs Immat Gran (auto) Absolute Neuts (auto) Absolute Nucleated RBC Nucleated RBC % % Immature Plt Fraction PT INR APTT Sodium Potassium Chloride Carbon Dioxide Anion Gap BUN Creatinine Estim Creat Clear Calc Estimated GFR Glucose POC Capillary Glucose 161 H Calcium Total Bilirubin AST ALT Alkaline Phosphatase Troponin I <
[2021-09-30 13:08] LABS: Glucose Point of Care 246 mg/dl (65-105)
== END 2021-09-30 14:32 | disposition home or self-care (01) ==
LOC: ANHED 17:13 → ANHIMU 23:12
PROVIDERS: Admitting Provider Internal Medicine; Emergency Provider Emergency Medicine; PCP Registered Nurse; Visit Provider Chiropractor
DX: R07.89 Other chest pain (principal); I25.118 Atherosclerotic heart disease of native coronary artery with other forms of angina pectoris; Z95.5 Presence of coronary angioplasty implant and graft; F41.9 Anxiety disorder, unspecified; E11.49 Type 2 diabetes mellitus with other diabetic neurological complication; E11.51 Type 2 diabetes mellitus with diabetic peripheral angiopathy without gangrene; I69.354 Hemiplegia and hemiparesis following cerebral infarction affecting left non-dominant side; E11.40 Type 2 diabetes mellitus with diabetic neuropathy, unspecified; I73.9 Peripheral vascular disease, unspecified; J44.9 Chronic obstructive pulmonary disease, unspecified; E11.59 Type 2 diabetes mellitus with other circulatory complications; I15.2 Hypertension secondary to endocrine disorders; I45.10 Unspecified right bundle-branch block; Z86.718 Personal history of other venous thrombosis and embolism; I50.32 Chronic diastolic (congestive) heart failure; K21.9 Gastro-esophageal reflux disease without esophagitis; G47.33 Obstructive sleep apnea (adult) (pediatric); I25.2 Old myocardial infarction; E78.2 Mixed hyperlipidemia; F17.210 Nicotine dependence, cigarettes, uncomplicated; Z79.82 Long term (current) use of aspirin; Z79.01 Long term (current) use of anticoagulants; Z79.84 Long term (current) use of oral hypoglycemic drugs; Z79.51 Long term (current) use of inhaled steroids; Z79.899 Other long term (current) drug therapy; Z82.49 Family history of ischemic heart disease and other diseases of the circulatory system
CPT/HCPCS: 36415; 71046; 80053; 82948; 83690; 84484; 85025; 85055; 85610; 85730; 93005; 94640; 96374; 96375; 99285; A9270; G0378; J1170; J2270; J2405

== ENCOUNTER 2021-11-10 17:43 | Emergency (ER) | payer MEDICARE, MEDICAID, SELFPAY ==
[2021-11-10] VITALS (9 sets, daily range): BP systolic 111–129; BP diastolic 65–78; PULSE 68–74; RESP 16–30; TEMP 36.4; O2SAT 96–98
--- NOTE | ~2021-11-10 | CT_ITS ---
EXAMINATION: CT abdomen pelvis wo con DATE: 11/10/2021 20:13 INDICATION: right flank pain, hx diverticulitis and kidney stones TECHNIQUE: Computed tomography (CT) of the abdomen and pelvis was performed without intravenous contr ast. Automated exposure control and iterative reconstruction technique were employed. The dose-length product was 2810.90 mGy-cm. COMPARISON: 08/19/2021. FINDINGS: Lower thorax: Coronary artery calcifications. Dependent left basilar atelectasis Liver: Enlarged. Biliary/Gallbladder: Gallbladder is normal. No bile duct dilation. Pancreas: No mass or duct dilation. Spleen: Normal. Adrenals:Bilateral myelolipomas. Kidneys: Bilateral perinephric stranding. Simple right midpole cyst. No obstructing calcification. No hydronephrosis. GI tract: No small or large bowel dilation. Normal appendix. Diverticulosis without diverticulitis. Mesentery/Peritoneum: No ascites, mass, or free air. Retroperitoneum: No mass. Atherosclerotic abdominal aortic and/or arterial calcifications. Pelvis: Bladder wall thickening likely due to outlet compromise from prostatomegaly. Prosthetic calci fications. Soft Tissues: Unremarkable. Small fat-containing bilateral inguinal hernias. Bones: No acute osseous finding. IMPRESSION: No acute abdominopelvic process detected. Specifically, there is no evidence of obstructive uropathy. Reviewed, dictated and finalized at location K.
--- NOTE | 2021-11-10 19:05 | ED.GENADULT ---
HPI - General Adult General Chief complaint: Back Pain/Injury Stated complaint: back pain Time Seen by Provider: 11/10/21 18:55 History of Present Illness HPI narrative: 61-year-old male with a prior history of kidney stones and diverticulitis presenting to the emergency department for evaluation of right flank pain that has been ongoing since . Patient states his most recent kidney stone was back in August or September. That was also when the patient have an episode of diverticulitis. Patient states he has had associated nausea and vomiting since and has been taking Zofran for nausea control. Patient describes the pain as sharp and in his right flank. Patient states pain does not radiate around to his abdomen. Patient denies any associate abdominal pain. Patient is unsure if he has had any hematuria. Patient does have a prior history of CHF, type 2 diabetes, hypertension, coronary artery disease, kidney stones, diverticulitis. Related Data Home Medications Medication Instructions Recorded Confirmed amlodipine 10 mg tablet 10 mg PO DAILY 01/24/19 09/29/21 bupropion HCl 150 mg tablet,12 hr 150 mg PO BID 01/24/19 09/29/21 sustained-release (Wellbutrin SR) doxazosin 2 mg tablet (Cardura) 2 mg PO HS 01/24/19 09/29/21 dulaglutide 1.5 mg/0.5 mL 1.5 mg subcut WEEKLY 01/24/19 09/29/21 subcutaneous pen injector (Trulicity) metformin 1,000 mg tablet 1,000 mg PO BID 01/24/19 09/29/21 rivaroxaban 2.5 mg tablet (Xarelto) 2.5 mg PO BID 01/24/19 09/29/21 omeprazole 40 mg capsule,delayed 40 mg PO DAILY 04/13/19 09/29/21 release carvedilol 25 mg tablet (Coreg) 25 mg PO BID 04/28/19 09/29/21 atorvastatin 40 mg tablet 80 mg PO HS 05/16/19 09/29/21 albuterol sulfate 90 mcg/actuation 2 puff inhalation Q4-6H PRN 01/09/20 09/29/21 aerosol inhaler (Ventolin HFA) Shortness Of Breath budesonide-formoterol HFA 160 2 puff inhalation BID 01/09/20 09/29/21 mcg-4.5 mcg/actuation aerosol inhaler (Symbicort) isosorbide mononitrate 60 mg 120 mg PO DAILY 01/09/20 09/29/21 tablet,extended release 24 hr loratadine 10 mg tablet (Claritin) 10 mg PO DAILY 03/15/20 09/29/21 alprazolam 0.25 mg tablet 0.25 mg PO HS 08/21/21 09/29/21 montelukast 10 mg tablet 1 tablet PO HS 08/21/21 09/29/21 aspirin 81 mg chewable tablet 81 mg PO DAILY 09/29/21 09/29/21 (Children's Aspirin) Allergies Allergy/AdvReac Type Severity Reaction Status Date / Time No Known Allergies Allergy Unknown Verified 11/10/21 18:50 Review of Systems Review of Systems: CONSTITUTIONAL: Denies fever, chills, or sweats. EYES: Denies visual changes, redness, or discharge. ENT: Denies rhinorrhea, congestion, sore throat, or otalgia. CARDIOVASCULAR: Denies chest pain, palpitations, or edema. RESPIRATORY: Denies cough or dyspnea. GASTROINTESTINAL: See HPI GENITOURINARY: Denies dysuria or hematuria. SKIN: Denies rash or itching. MUSCULOSKELETAL: Denies back pain, joint pain, or myalgia. NEUROLOGIC: Denies headache, numbness, or weakness. [facility] Past Medical History Medical History Anxiety Arthritis 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 Chronic anticoagulation Chronic obstructive pulmonary disease Congestive heart failure Coronary artery disease Deep venous thrombosis Depression Diabetic peripheral neuropathy Eczema Gastric ulcer Gastroesophageal reflux disease GI bleed Hearing loss Hyperlipidemia Hypertension Kidney stones Medial meniscus tear Myocardial infarction Nausea and vomiting Obstructive sleep apnea on CPAP Peripheral vascular disease Pneumonia Psoriasis Rectal polyp Seasonal allergies Transient ischemic attack Type 2 diabetes mellitus Surgical History Surgical History History of cardiac catheterization 2 stents History of cholecystectomy History of heart artery
[2021-11-10 19:06] LABS: Appearance Urine Clear (Clear); Bilirubin Urine 1+ (Negative); Blood Urine Negative (Negative); Color Urine Yellow (Yellow); Glucose Urine UA 1+ mg/dL (Negative); Ketones Urine Negative (Negative); Leukocyte Esterase Ur Negative LEU/UL (Negative); Nitrate Urine Negative (Negative); Protein Urine 2+ mg/dL (Negative); Specific Grav Ur >= 1.030 (1.001-1.035); Urobilinogen Urine 0.2 mg/dL (<2.0); pH Urine 5.5 (5.0-9.0)
[2021-11-10 19:07] LABS: Basophils Percent Auto 0.3 % (0.2-1.2); Eosinophils Absolute Auto 0.2 K/mm3 (0-0.3); Eosinophils Percent Auto 2.7 % (0-4.4); Hematocrit 39.6 % (42.0-52.0); Hemoglobin 13.4 g/dL (14.0-18.0); Immature Granulocyte Absolute 0.03 K/mm3 (0.00-0.031); Immature Granulocyte Percent A 0.4 % (0-0.5); Immature Platelet Fraction Pct 6.7 % (0.9-11.2); Lymphocytes Absolute Auto 1.58 K/mm3 (0.9-3.2); Lymphocytes Percent Auto 21.1 % (18.3-44.2); Mean Corpuscular HGB Conc 33.8 g/dl (32-36); Mean Corpuscular Hemoglobin 30.5 pg (26-34); Mean Platelet Volume 11.2 fl (7.4-10.4); Monocytes Absolute Auto 0.7 K/mm3 (0.1-0.6); Monocytes Percent Auto 8.9 % (2.6-8.5); Neutrophils Percent Auto 66.6 % (45.5-73.1); Platelet Count Result 144 k/mm3 (150-375); Red Cell Distribution Width 13.8 % (11.5-14.5); White Blood Count 7.5 K/mm3 (4.5-10.0)
[2021-11-10 19:09] LABS: Mucus Urine Rare /lpf; WBC Urine 0-3 /hpf
[2021-11-10 19:10] LABS: Add Urine Microscopic? YES
[2021-11-10] MEDS: ONDANSETRON INJ 4 MG/2 ML VIAL IV PUSH (19:16)
[2021-11-10 19:17] LABS: Alanine Aminotransferase 48 U/L (6-50); Albumin Level 4.3 g/dL (3.5-5.1); Alkaline Phosphatase 61 U/L (38-126); Anion Gap 14 mmol/L (8-16); Aspartate Amino Transferase 32 U/L (17-59); Bilirubin,Total 0.4 mg/dL (0.2-1.3); Blood Urea Nitrogen 13 mg/dL (9-20); Calcium 8.9 mg/dL (8.4-10.2); Carbon Dioxide 23 mmol/L (22-30); Chloride 102 mmol/L (98-107); Estimated CRCL calculation 100 ml/min; Estimated Glomerular Filt Rate > 60; Glucose 228 mg/dL (65-110); Lipase 230 U/L (23-300); Potassium 3.9 mmol/L (3.4-5.0); Sodium 139 mmol/L (137-145)
[2021-11-10] MEDS: HYDROmorphone HCL INJ (*CRX) 1 MG/ML SYR 0.5 MG IV PUSH (19:17)
== END 2021-11-10 21:55 | disposition home or self-care (01) ==
PROVIDERS: Emergency Provider Emergency Medicine; PCP Registered Nurse
DX: R10.9 Unspecified abdominal pain (principal); I11.0 Hypertensive heart disease with heart failure; I50.9 Heart failure, unspecified; I25.10 Atherosclerotic heart disease of native coronary artery without angina pectoris; E11.43 Type 2 diabetes mellitus with diabetic autonomic (poly)neuropathy; J44.9 Chronic obstructive pulmonary disease, unspecified; L40.9 Psoriasis, unspecified; I69.354 Hemiplegia and hemiparesis following cerebral infarction affecting left non-dominant side; F41.9 Anxiety disorder, unspecified; F32.A Depression, unspecified; K21.9 Gastro-esophageal reflux disease without esophagitis; E78.5 Hyperlipidemia, unspecified; I25.2 Old myocardial infarction; G47.33 Obstructive sleep apnea (adult) (pediatric); E11.51 Type 2 diabetes mellitus with diabetic peripheral angiopathy without gangrene; Z86.718 Personal history of other venous thrombosis and embolism; Z79.899 Other long term (current) drug therapy; Z79.01 Long term (current) use of anticoagulants; Z79.84 Long term (current) use of oral hypoglycemic drugs; Z79.51 Long term (current) use of inhaled steroids; Z79.82 Long term (current) use of aspirin; Z95.5 Presence of coronary angioplasty implant and graft; F17.210 Nicotine dependence, cigarettes, uncomplicated
CPT/HCPCS: 36415; 74176; 80053; 81001; 83690; 85025; 85055; 96374; 96375; 99284; J1170; J2405

== ENCOUNTER 2021-11-18 09:01 | Observation (INO) | payer MEDICARE, MEDICAID, SELFPAY ==
[2021-11-18] VITALS (33 sets, daily range): BP systolic 128–165; BP diastolic 62–102; PULSE 60–79; RESP 10–27; TEMP 35.9–37.2; O2SAT 94–99; BMI 43.0
--- NOTE | ~2021-11-18 | XR_ITS ---
XR chest 2V 11/18/2021 09:42 Indication: Left-sided chest pain Procedure: 2 view chest Comparison: Comparison to multiple prior studies sequentially, with oldest reviewed study dated 05/22. Findings: Heart size normal. There is chronic right pleural thickening unchanged. There is chronic le ft basilar atelectasis/scarring. No acute osseous abnormality. Impression: 1: No acute cardiopulmonary disease. No significant change from most recent examination. Reviewed, dictated and finalized at location A. Impression: 1: No acute cardiopulmonary disease. No significant change from most recent exa mination.
--- NOTE | 2021-11-18 09:02 | ECG_ITS ---
Measurements Intervals [place] Rate: 68 P: 19 IA: 156 QRS: 26 QRSD: 150 T: 17 QT: 427 QTc: 454 Interpretive Statements SINUS RHYTHM RIGHT BUNDLE BRANCH BLOCK CONSIDER INFERIOR INFARCT, AGE INDETERMINATE BASELINE WANDER- V2 ABNORMAL ECG COMPARED TO ECG 09/29/2021 14:25:04 NO SIGNIFICANT CHANGES Electronically Signed On 11-18-2021 9:58:45 CDT by Mathew Landon D.O.
[2021-11-18] MEDS: ASPIRIN 81 MG CHEWABLE TABLET 324 MG PO (09:18)
[2021-11-18] MEDS: NITROGLYCERIN SL 0.4 MG TABLET SUBLINGUAL (09:25)
[2021-11-18 09:29] LABS: Basophils Percent Auto 0.3 % (0.2-1.2); Eosinophils Absolute Auto 0.2 K/mm3 (0-0.3); Eosinophils Percent Auto 2.7 % (0-4.4); Hematocrit 40.8 % (42.0-52.0); Hemoglobin 14.3 g/dL (14.0-18.0); Immature Granulocyte Absolute 0.03 K/mm3 (0.00-0.031); Immature Granulocyte Percent A 0.5 % (0-0.5); Immature Platelet Fraction Pct 7.4 % (0.9-11.2); Lymphocytes Percent Auto 20.7 % (18.3-44.2); Mean Corpuscular Hemoglobin 30.9 pg (26-34); Mean Corpuscular Volume 88.1 fl (80-100); Mean Platelet Volume 10.8 fl (7.4-10.4); Monocytes Absolute Auto 0.6 K/mm3 (0.1-0.6); Monocytes Percent Auto 9.9 % (2.6-8.5); Neutrophils Absolute Auto 4.2 K/mm3 (1.3-6.7); Neutrophils Percent Auto 65.9 % (45.5-73.1); Platelet Count Result 126 k/mm3 (150-375); Red Blood Count 4.63 M/mm3 (4.6-6.20); Red Cell Distribution Width 13.7 % (11.5-14.5); White Blood Count 6.3 K/mm3 (4.5-10.0)
--- NOTE | 2021-11-18 09:29 | ED.CHESTPAIN ---
HPI - Chest Pain General Chief Complaint: Chest Pain Stated Complaint: chest pain Time Seen by Provider: 11/18/21 09:06 History of Present Illness HPI narrative: Pt got up to go to [place] at 0500 this am and develped anterior chest pressure without radioation. Pt has known small vessel cardiac disease which cannot be stented and is being medically managed. Pt took a nitor which relieved the pain for about an hour and then the painb returned, he took another nitro which improved but did not relieve the pain. Pain 10/10 at worst and 6/10 now. Pt says this is not typical because the nitro usually relieves pain. Pt did not take asa today. Related Data Home Medications Medication Instructions Recorded Confirmed amlodipine 10 mg tablet 10 mg PO DAILY 01/24/19 11/18/21 bupropion HCl 150 mg tablet,12 hr 150 mg PO BID 01/24/19 11/18/21 sustained-release (Wellbutrin SR) doxazosin 2 mg tablet (Cardura) 2 mg PO HS 01/24/19 11/18/21 dulaglutide 1.5 mg/0.5 mL 1.5 mg subcut WEEKLY 01/24/19 11/18/21 subcutaneous pen injector (Trulicity) metformin 1,000 mg tablet 1,000 mg PO BID 01/24/19 11/18/21 rivaroxaban 2.5 mg tablet (Xarelto) 2.5 mg PO BID 01/24/19 11/18/21 omeprazole 40 mg capsule,delayed 40 mg PO DAILY 04/13/19 11/18/21 release carvedilol 25 mg tablet (Coreg) 25 mg PO BID 04/28/19 11/18/21 atorvastatin 40 mg tablet 80 mg PO HS 05/16/19 11/18/21 albuterol sulfate 90 mcg/actuation 2 puff inhalation Q4-6H PRN 01/09/20 11/18/21 aerosol inhaler (Ventolin HFA) Shortness Of Breath budesonide-formoterol HFA 160 2 puff inhalation BID 01/09/20 11/18/21 mcg-4.5 mcg/actuation aerosol inhaler (Symbicort) isosorbide mononitrate 60 mg 120 mg PO DAILY 01/09/20 11/18/21 tablet,extended release 24 hr loratadine 10 mg tablet (Claritin) 10 mg PO DAILY 03/15/20 11/18/21 alprazolam 0.25 mg tablet 0.25 mg PO HS 08/21/21 11/18/21 montelukast 10 mg tablet 1 tablet PO HS 08/21/21 11/18/21 aspirin 81 mg chewable tablet 81 mg PO DAILY 09/29/21 11/18/21 (Children's Aspirin) Allergies Allergy/AdvReac Type Severity Reaction Status Date / Time No Known Allergies Allergy Unknown Verified 11/10/21 18:50 Review of Systems Review of Systems: All systems reviewed & are unremarkable except as noted in HPI and below PMFSH Past Medical History Medical History Anxiety Arthritis 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 Chronic anticoagulation Chronic obstructive pulmonary disease Congestive heart failure Coronary artery disease Deep venous thrombosis Depression Diabetic peripheral neuropathy Eczema Gastric ulcer Gastroesophageal reflux disease GI bleed Hearing loss Hyperlipidemia Hypertension Kidney stones Medial meniscus tear Myocardial infarction Nausea and vomiting Obstructive sleep apnea on CPAP Peripheral vascular disease Pneumonia Psoriasis Rectal polyp Seasonal allergies Transient ischemic attack Type 2 diabetes mellitus Surgical History Surgical History History of cardiac catheterization 2 stents History of cholecystectomy History of heart artery stent X2. History of lithotripsy History of loop recorder History of rectal polypectomy History of tonsillectomy Family History Family History Mother Diabetes mellitus Kidney stones Arthritis Father Acute myocardial infarction Heart disease Kidney stones Hypertension Sibling Coronary artery disease Heart disease Hx of CABG Social History Social History Social History: Surrogate decision maker: Rena Dodd, friend. Code status: Full code. Smoking packs per day: 0.25 Smoking cigarettes per day: 5.0 Years smoked: 42 Smoking pack-years: 10.50 Smoking s
--- NOTE | 2021-11-18 09:31 | PC.NURSE ---
First SL nitro given at 0925, second at 0930. Pt still has a small amount of pain. Will re assess. Pt to xray at this time
[2021-11-18 09:38] LABS: Alanine Aminotransferase 39 U/L (6-50); Albumin Level 4.5 g/dL (3.5-5.1); Alkaline Phosphatase 62 U/L (38-126); Anion Gap 12 mmol/L (8-16); Aspartate Amino Transferase 31 U/L (17-59); Bilirubin,Total 0.6 mg/dL (0.2-1.3); Blood Urea Nitrogen 13 mg/dL (9-20); Calcium 8.9 mg/dL (8.4-10.2); Carbon Dioxide 23 mmol/L (22-30); Chloride 101 mmol/L (98-107); Estimated CRCL calculation 110 ml/min; Estimated Glomerular Filt Rate > 60; Glucose 203 mg/dL (65-110); Lipase 152 U/L (23-300); Potassium 4.3 mmol/L (3.4-5.0); Sodium 136 mmol/L (137-145)
[2021-11-18 09:42] LABS: INR 1.1; Prothrombin Time 13.7 Seconds (11.1-14.7)
[2021-11-18 09:43] LABS: Partial Thromboplastin Time 30.2 SECONDS (22.3-36.8)
[2021-11-18 09:49] LABS: Troponin I < 0.012 ng/mL (0.000-0.034)
[2021-11-18] MEDS: MORPHINE SULFATE (*CRX) 4 MG/ML INJ IV PUSH ×2 (10:43→11:47)
--- NOTE | 2021-11-18 11:35 | ECG_ITS ---
Measurements Intervals [place] Rate: 71 P: 20 CA: 147 QRS: 16 QRSD: 143 T: 9 QT: 414 QTc: 451 Interpretive Statements SINUS RHYTHM RIGHT BUNDLE BRANCH BLOCK CONSIDER INFERIOR INFARCT, AGE INDETERMINATE BASELINE ARTIFACT- I, III, AVR, AVL, AVF ABNORMAL ECG COMPARED TO ECG 11/18/2021 09:11:36 NO SIGNIFICANT CHANGES Electronically Signed On 11-18-2021 13:56:24 CDT by Mathew Landon D.O.
[2021-11-18] MEDS: NITROGLYCERIN OINTMENT 1 INCH DOSE TRANSDERM (11:46)
[2021-11-18 12:56] LABS: Troponin I < 0.012 ng/mL (0.000-0.034)
--- NOTE | 2021-11-18 13:24 | PC.NURSE ---
pt transfered from ED at 12:45; pt admission complete; pt statement to complete admission screening
[2021-11-18] MEDS: MORPHINE SULFATE (*CRX) 2 MG/ML INJ IV PUSH (14:38)
--- NOTE | 2021-11-18 16:02 | PM.CNCAR ---
Assessment and Plan Assessment and plan (1) Chest pain: Code(s): R07.9 - Chest pain, unspecified Status: Acute Plan This is a 61-year-old man well known to have coronary disease as described above. He continues to have numerous episodes of chest discomfort that create concern. It is certainly possible that this episode of pain that he came in with today again is small vessel ischemia. It is also possible that he has some noncardiac reason for the symptoms since there is no evidence of myocardial necrosis despite the symptoms. At this point the old recommendation I can think of is to encourage him to take his Ranexa even though he does not wish to experience the unpleasant over that he seems to have when he takes the medication. Other than this if he remains stable through the night I would consider discharge again in the morning. 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 He is well known to most physicians at [facility] with chest pain as he is frequently admitted here for evaluation. He has a well-known history of coronary artery disease and follows in my office with my partner, Dr. Willoughby. The patient was in his usual state of health this morning when he was getting dressed in the beginning of the day any had an episode of central dull chest discomfort. He believes this was ischemic chest pain and took a nitroglycerin tablet with some relief. He then had 2 subsequent recurrences of this symptom within about 20-30 minutes. He is known to have significant coronary disease with small vessel involvement which is being treated medically. He is used to having chest pain episodes that typically go away with nitroglycerin but he felt it was unusual that he had 3 episodes within about 30-40 minutes. In the emergency department he was given some morphine which improved the pain he was also given some nitroglycerin which seemed to have no effect on it. His electrocardiogram shows sinus rhythm with a right bundle branch block with no changes in comparison to previous tracings that are in his record. His troponin levels are normal. This is a gentleman with coronary disease with history of stenting of his proximal LAD as well as the distal aspect of his circumflex in the past. He has had again numerous admissions here for chest pain symptoms he did undergo a follow-up angiogram in April of this year which demonstrated some high-grade lesions but in very small vessels that were not amenable to PCI this included the 2nd diagonal branch of his LAD and the 1st 2 marginal branches of his circumflex. The large coronary arteries were patent. He has been for this on a medical regimen including aspirin, amlodipine, atorvastatin, carvedilol, isosorbide, low-dose Xarelto and recently have been started on Ranexa. The patient was started on this about a month ago when he was here and seen by Dr. Willoughby. He states he is not taking the Ranexa because it makes him smell bad and he was told this could be a side effect of the medication and he found the malodorous response to be something he does not wish to tolerate. Review of Systems Constitutional: Constitutional: Reports no additional constitutional complaints Eyes: Eyes: Reports no additional eye complaints ENT: Reports system reviewed and no additional complaints, except as documented Cardiovascular: Cardiovascular: Reports as per HPI Respiratory: Respiratory: Reports no additional respiratory complaints Gastrointestinal: Gastrointestina
[2021-11-18 16:41] LABS: Troponin I < 0.012 ng/mL (0.000-0.034)
--- NOTE | 2021-11-18 17:01 | PM.IMHP ---
H&P: HPI History of Present Illness Date/Time: 11/18/21 17:01 Chief Complaint: Chest pain Narrative: 61-year-old male with multiple medical problems including history of stroke, diabetes, coronary artery disease, peripheral vascular disease, congestive heart failure, and several other comorbidities who presented to the emergency department for evaluation of chest pain. His last cardiac catheterization was in April 2021 which showed stable disease however he continues to have intermittent episodes of angina for which he was started on isosorbide mononitrate which seems to have decreased the frequency of his chest pain. He was admitted for observation September 30 for similar complaints. At that time, Ranexa was added for better anginal control. Patient woke up around 5:00 a.m. this morning to use the restroom should he developed chest pain that radiated into his left arm and left jaw. He states it was 10/10 at that time and took a nitro which did not seem to help. ECG showed normal sinus rhythm with a heart rate of 68, no significant changes from prior ECG. Troponin is negative x3. Cardiology was consulted. No shortness of breath. No nausea, vomiting or diarrhea. No fevers or chills. No recent travel, no sick contacts. Review of Systems Review of Systems: 12 point review of systems was assessed and was negative except as noted in the HPI [facility] Past Medical History Medical History Anxiety Arthritis 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 Chronic anticoagulation Chronic obstructive pulmonary disease Congestive heart failure Coronary artery disease Deep venous thrombosis Depression Diabetic peripheral neuropathy Eczema Gastric ulcer Gastroesophageal reflux disease GI bleed Hearing loss Hyperlipidemia Hypertension Kidney stones Medial meniscus tear Myocardial infarction Nausea and vomiting Obstructive sleep apnea on CPAP Peripheral vascular disease Pneumonia Psoriasis Rectal polyp Seasonal allergies Transient ischemic attack Type 2 diabetes mellitus Surgical History Surgical History History of cardiac catheterization 2 stents History of cholecystectomy History of heart artery stent X2. History of lithotripsy History of loop recorder History of rectal polypectomy History of tonsillectomy Family History Family History Mother Diabetes mellitus Kidney stones Arthritis Father Acute myocardial infarction Heart disease Kidney stones Hypertension Sibling Coronary artery disease Heart disease Hx of CABG Social History Social History Social History: Surrogate decision maker: Rena Dodd, friend. Code status: Full code. Smoking packs per day: 0.25 Smoking cigarettes per day: 5.0 Years smoked: 42 Smoking pack-years: 10.50 Smoking status: Current every day smoker Tobacco type: cigarettes Second hand tobacco smoke exposure: No Alcohol intake: never Substance use: never Substance use type: does not use Additional living arrangements comments: The patient lives in [place] with a roommate. He has no children. Additional occupation/education comments: Disabled. Spiritual care concerns: No Meds Home Medications and Allergies Home Medications Medication Instructions Recorded Confirmed Type amlodipine 10 mg tablet 10 mg PO DAILY 01/24/19 11/18/21 History bupropion HCl 150 mg tablet,12 hr 150 mg PO BID 01/24/19 11/18/21 History sustained-release (Wellbutrin SR) doxazosin 2 mg tablet (Cardura) 2 mg PO HS 01/24/19 11/18/21 History dulaglutide 1.5 mg/0.5 mL 1.5 mg subcut WEEKLY 01/24/19 11/18/21 History [facility] metformin 1,000 mg
--- NOTE | 2021-11-18 18:09 | PC.NURSE ---
This patient, Vini Zambrano, was admitted to IMU Room 211-01. Patient/family oriented to hospital policies and general routines including ID bracelet, bed and alarms, visiting hours, pain management, procedures, bathroom and other care routines, personal items, smoking policy, room service/diet, and visiting hours. Information on how to activate the Rapid Response Team has been discussed. Patient/Family are encouraged to report perceived risks to care and to ask questions if they do not understand what they are told or what they should do.
[2021-11-18] MEDS: ONDANSETRON INJ 4 MG/2 ML VIAL IV PUSH (18:43)
[2021-11-18 19:16] LABS: Hemoglobin A1C 6.9 % (<5.7)
[2021-11-18 20:14] LABS: Glucose Point of Care 265 mg/dl (65-105)
[2021-11-19] VITALS (7 sets, daily range): BP systolic 129–143; BP diastolic 72–112; PULSE 61–116; RESP 16–22; TEMP 36.4–36.6; O2SAT 94–99
[2021-11-19 08:09] LABS: Glucose Point of Care 222 mg/dl (65-105)
[2021-11-19] MEDS: INSULIN ASPART (*BKC) 100 UNITS/ML SUB-Q (08:51)
[2021-11-19 12:04] LABS: Glucose Point of Care 200 mg/dl (65-105)
--- NOTE | 2021-11-19 19:23 | PM.DS ---
DS: Admitting Diagnosis Discharge Date 11/19/21 Admitting Diagnosis Chest pain DS: Discharge Diagnosis Discharge Diagnosis (1) Chest pain: Code(s): R07.9 - Chest pain, unspecified Status: Acute Assessment and Plan: Cardiology consult pending, monitor telemetry, troponins negative x3, EKG unchanged, anticipate discharge today (2) Coronary artery disease: Qualifiers: Coronary Disease-Associated Artery/Lesion type: [place] artery [place] vs. 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 Diabetes mellitus complication status: with hyperglycemia Qualified Code(s): E11.65 - Type 2 diabetes mellitus with hyperglycemia; 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 His last cardiac catheterization was in April 2021 which showed stable disease however he continues to have intermittent episodes of angina for which he was started on isosorbide mononitrate which seems to have decreased the frequency of his chest pain.? He was admitted for observation September 30 for similar complaints.? At that time, Ranexa was added for better anginal control. Patient woke up around 5:00 a.m. this morning to use the restroom should he developed chest pain that radiated into his left arm and left jaw.? He states it was 10/10 at that time and took a nitro which did not seem to help.? ECG showed normal sinus rhythm with a heart rate of 68, no significant changes from prior ECG.? Troponin is negative x3.? Cardiology was consulted. 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 Patient refuses to take Ranexa because it makes him small bowel and the people at 1 to be around him and he states this is really a big deal him. No need for heart catheterization at this time and unable to find any other medical management that would work for this patient's symptoms. Therefore he was discharged in good condition on current medications with close outpatient follow-up by Cardiology. All symptoms resolved at this time. Time Spent with Patient Time attestation: Total time spent providing and/or coordinating discharge services: Exam Narrative: General: No acute distress, alert and oriented per baseline HEENT: Atraumatic, normocephalic, mucous membranes moist CV: Regular rate and rhythm, S1, S2 Lungs: Clear to auscultation bilaterally, no rales or crackles noted, no wheezes, good air entry Abdomen: Soft, nontender, nondistended Extremities: Normal to inspection Skin: No rashes noted, no lesions or wounds seen Psych: Euthymic, normal affect DS: Data Data Completed and Pending Labs on day of discharge: Labs from last 24 hours 11/19/21 11/19/21 11/18/21 11:49 07:45 19:44 POC Capillary Glucose 200 H 222 H 265 H Discharge Plan Discharge Attending physician on discharge: Gabi Barfield
== END 2021-11-19 12:29 | disposition home or self-care (01) ==
LOC: ANHED 12:08 → ANHIMU 12:21
PROVIDERS: Admitting Provider Student in an Organized Health Care Education/Training Program; Emergency Provider Emergency Medicine; PCP Registered Nurse; Visit Provider Student in an Organized Health Care Education/Training Program
DX: R07.9 Chest pain, unspecified (principal); I25.118 Atherosclerotic heart disease of native coronary artery with other forms of angina pectoris; Z95.5 Presence of coronary angioplasty implant and graft; E11.65 Type 2 diabetes mellitus with hyperglycemia; I11.0 Hypertensive heart disease with heart failure; I50.9 Heart failure, unspecified; I69.854 Hemiplegia and hemiparesis following other cerebrovascular disease affecting left non-dominant side; E11.43 Type 2 diabetes mellitus with diabetic autonomic (poly)neuropathy; F32.A Depression, unspecified; K21.9 Gastro-esophageal reflux disease without esophagitis; E78.5 Hyperlipidemia, unspecified; I25.2 Old myocardial infarction; I45.10 Unspecified right bundle-branch block; R94.31 Abnormal electrocardiogram [ECG] [EKG]; G47.33 Obstructive sleep apnea (adult) (pediatric); Z99.89 Dependence on other enabling machines and devices; I73.9 Peripheral vascular disease, unspecified; F17.210 Nicotine dependence, cigarettes, uncomplicated; E11.42 Type 2 diabetes mellitus with diabetic polyneuropathy; E11.51 Type 2 diabetes mellitus with diabetic peripheral angiopathy without gangrene; J44.9 Chronic obstructive pulmonary disease, unspecified; F41.9 Anxiety disorder, unspecified; Z86.718 Personal history of other venous thrombosis and embolism; Z79.51 Long term (current) use of inhaled steroids; Z79.01 Long term (current) use of anticoagulants; Z79.82 Long term (current) use of aspirin; Z79.84 Long term (current) use of oral hypoglycemic drugs; Z79.899 Other long term (current) drug therapy; Z87.01 Personal history of pneumonia (recurrent); Z86.73 Personal history of transient ischemic attack (TIA), and cerebral infarction without residual deficits; Z79.891 Long term (current) use of opiate analgesic; Z83.3 Family history of diabetes mellitus; Z84.1 Family history of disorders of kidney and ureter; Z82.3 Family history of stroke; Z82.49 Family history of ischemic heart disease and other diseases of the circulatory system
CPT/HCPCS: 36415; 71046; 80053; 82948; 83036; 83690; 84484; 85025; 85055; 85610; 85730; 93005; 96374; 96375; 96376; 99285; A9270; G0378; J1815; J2270; J2405

== ENCOUNTER 2021-12-02 14:53 | Emergency (ER) | payer MEDICARE, MEDICAID, SELFPAY ==
[2021-12-02 14:56] VITALS: BP 129/68; PULSE 79; RESP 17; TEMP 36.3; O2SAT 97
--- NOTE | 2021-12-02 15:01 | ECG_ITS ---
Measurements Intervals [place] Rate: 72 P: 58 TX: 162 QRS: 19 QRSD: 158 T: 30 QT: 415 QTc: 455 Interpretive Statements SINUS RHYTHM RIGHT BUNDLE BRANCH BLOCK CAN NOT RULE OUT INFERIOR INFARCTION, AGE INDETERMINATE ABNORMAL ECG COMPARED TO ECG 11/18/2021 11:46:31 NO SIGNIFICANT CHANGES Electronically Signed On 12-02-2021 15:19:30 CDT by Aubrey Willoughby M.D.
[2021-12-02 15:24] LABS: Basophils Percent Auto 0.3 % (0.2-1.2); Eosinophils Absolute Auto 0.2 K/mm3 (0-0.3); Eosinophils Percent Auto 2.1 % (0-4.4); Hematocrit 38.8 % (42.0-52.0); Hemoglobin 13.5 g/dL (14.0-18.0); Immature Granulocyte Absolute 0.03 K/mm3 (0.00-0.031); Immature Granulocyte Percent A 0.4 % (0-0.5); Immature Platelet Fraction Pct 7.5 % (0.9-11.2); Lymphocytes Absolute Auto 1.37 K/mm3 (0.9-3.2); Lymphocytes Percent Auto 17.9 % (18.3-44.2); Mean Corpuscular HGB Conc 34.8 g/dl (32-36); Mean Corpuscular Hemoglobin 31.4 pg (26-34); Mean Corpuscular Volume 90.2 fl (80-100); Mean Platelet Volume 11.1 fl (7.4-10.4); Monocytes Absolute Auto 0.7 K/mm3 (0.1-0.6); Monocytes Percent Auto 8.9 % (2.6-8.5); Neutrophils Absolute Auto 5.4 K/mm3 (1.3-6.7); Neutrophils Percent Auto 70.4 % (45.5-73.1); Platelet Count Result 148 k/mm3 (150-375); Red Cell Distribution Width 13.9 % (11.5-14.5); White Blood Count 7.7 K/mm3 (4.5-10.0)
[2021-12-02 15:37] LABS: Alanine Aminotransferase 38 U/L (6-50); Albumin Level 4.3 g/dL (3.5-5.1); Alkaline Phosphatase 59 U/L (38-126); Anion Gap 12 mmol/L (8-16); Aspartate Amino Transferase 30 U/L (17-59); Bilirubin,Total 0.6 mg/dL (0.2-1.3); Blood Urea Nitrogen 17 mg/dL (9-20); Calcium 8.9 mg/dL (8.4-10.2); Carbon Dioxide 22 mmol/L (22-30); Chloride 102 mmol/L (98-107); Estimated CRCL calculation 100 ml/min; Estimated Glomerular Filt Rate > 60; Glucose 216 mg/dL (65-110); Potassium 3.9 mmol/L (3.4-5.0); Sodium 136 mmol/L (137-145)
--- NOTE | 2021-12-02 16:12 | ED.NEUROSD ---
HPI - Neuro Symptoms/Deficit General Chief Complaint: Neuro Symptoms/Deficit Stated Complaint: pain in right hip Time Seen by Provider: 12/02/21 15:40 History of Present Illness HPI Narrative: Patient is a 61-year-old male who presents ER with right lower extremity pain and numbness. Patient reports last night he started having some achiness into his thigh and today it is going down his leg and he is having burning in his anterior thigh. It goes up into his hip as well. No back pain. No fall or trauma. Symptoms worsen when he goes from sitting to standing. Better at rest. Reports he had prolonged time on his feet yesterday when he went to [employer] and this can sometimes be an aggravating factor for sciatica but he is not having his typical back pain. No fevers or chills or sweats. No slurred speech or upper extremity issue. He is still able to ambulate. Related Data Home Medications Medication Instructions Recorded Confirmed amlodipine 10 mg tablet 10 mg PO DAILY 01/24/19 11/18/21 bupropion HCl 150 mg tablet,12 hr 150 mg PO BID 01/24/19 11/18/21 sustained-release (Wellbutrin SR) doxazosin 2 mg tablet (Cardura) 2 mg PO HS 01/24/19 11/18/21 dulaglutide 1.5 mg/0.5 mL 1.5 mg subcut WEEKLY 01/24/19 11/18/21 subcutaneous pen injector (Trulicity) metformin 1,000 mg tablet 1,000 mg PO BID 01/24/19 11/18/21 rivaroxaban 2.5 mg tablet (Xarelto) 2.5 mg PO BID 01/24/19 11/18/21 omeprazole 40 mg capsule,delayed 40 mg PO DAILY 04/13/19 11/18/21 release carvedilol 25 mg tablet (Coreg) 25 mg PO BID 04/28/19 11/18/21 atorvastatin 40 mg tablet 80 mg PO HS 05/16/19 11/18/21 albuterol sulfate 90 mcg/actuation 2 puff inhalation Q4-6H PRN 01/09/20 11/18/21 aerosol inhaler (Ventolin HFA) Shortness Of Breath budesonide-formoterol HFA 160 2 puff inhalation BID 01/09/20 11/18/21 mcg-4.5 mcg/actuation aerosol inhaler (Symbicort) isosorbide mononitrate 60 mg 120 mg PO DAILY 01/09/20 11/18/21 tablet,extended release 24 hr loratadine 10 mg tablet (Claritin) 10 mg PO DAILY 03/15/20 11/18/21 alprazolam 0.25 mg tablet 0.25 mg PO HS 08/21/21 11/18/21 montelukast 10 mg tablet 1 tablet PO HS 08/21/21 11/18/21 aspirin 81 mg chewable tablet 81 mg PO DAILY 09/29/21 11/18/21 (Children's Aspirin) Allergies Allergy/AdvReac Type Severity Reaction Status Date / Time No Known Allergies Allergy Unknown Verified 11/10/21 18:50 Review of Systems Review of Systems: All systems reviewed & are unremarkable except as noted in HPI and below Constitutional: Constitutional: Denies chills, Denies fatigue and Denies fever(s) Musculoskeletal: Musculoskeletal: Denies back pain, Reports arthralgias and Denies joint swelling Integumentary/Breasts: Skin/Breast: Denies erythema Neurologic: Denies syncope, Denies headache(s), Denies focal weakness and Reports numbness Comments: Burning paresthesia PMFSH Past Medical History Medical History Anxiety Arthritis 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 Chronic anticoagulation Chronic obstructive pulmonary disease Congestive heart failure Coronary artery disease Deep venous thrombosis Depression Diabetic peripheral neuropathy Eczema Gastric ulcer Gastroesophageal reflux disease GI bleed Hearing loss Hyperlipidemia Hypertension Kidney stones Medial meniscus tear Myocardial infarction Nausea and vomiting Obstructive sleep apnea on CPAP Peripheral vascular disease Pneumonia Psoriasis Rectal polyp Seasonal allergies Transient ischemic attack Type 2 diabetes mellitus Surgical History Surgical History History of cardiac catheterization 2 stents History of cholecystectomy History of heart artery stent X2. History of lithotripsy History of loop recorder History of rectal polypectomy History of tonsillec
[2021-12-02 16:26] VITALS: BP 125/68; PULSE 72; RESP 20
[2021-12-02] MEDS: CYCLOBENZAPRINE HCL 10 MG TABLET PO (16:29)
[2021-12-02] MEDS: ACETAMINOPHEN 500 MG TABLET 1000 MG PO (16:29)
[2021-12-02 16:32] VITALS: BP 125/68; O2SAT 98
== END 2021-12-02 16:34 | disposition home or self-care (01) ==
PROVIDERS: Emergency Provider Emergency Medicine; PCP Registered Nurse
DX: M54.10 Radiculopathy, site unspecified (principal); I69.954 Hemiplegia and hemiparesis following unspecified cerebrovascular disease affecting left non-dominant side; J44.9 Chronic obstructive pulmonary disease, unspecified; E11.42 Type 2 diabetes mellitus with diabetic polyneuropathy; E78.5 Hyperlipidemia, unspecified; I25.2 Old myocardial infarction; E11.51 Type 2 diabetes mellitus with diabetic peripheral angiopathy without gangrene; I73.9 Peripheral vascular disease, unspecified; M19.90 Unspecified osteoarthritis, unspecified site; K21.9 Gastro-esophageal reflux disease without esophagitis; G47.33 Obstructive sleep apnea (adult) (pediatric); F32.A Depression, unspecified; F41.9 Anxiety disorder, unspecified; Z87.01 Personal history of pneumonia (recurrent); Z86.718 Personal history of other venous thrombosis and embolism; Z87.442 Personal history of urinary calculi; Z79.84 Long term (current) use of oral hypoglycemic drugs; Z79.01 Long term (current) use of anticoagulants; Z95.5 Presence of coronary angioplasty implant and graft; Z87.19 Personal history of other diseases of the digestive system; F17.210 Nicotine dependence, cigarettes, uncomplicated; I45.10 Unspecified right bundle-branch block
CPT/HCPCS: 36415; 80053; 85025; 85055; 93005; 99283; A9270

== ENCOUNTER 2022-01-01 03:14 | Emergency (ER) | payer MEDICARE, MEDICAID, SELFPAY ==
--- NOTE | ~2022-01-01 | XR_ITS ---
EXAMINATION: XR knee LT 3V DATE: 01/01/2022 03:55 INDICATION: Left knee pain. Fall. TECHNIQUE: 3 views of left knee were obtained. COMPARISON: Left knee radiographs 10/27/2019 FINDINGS: Bone alignment is normal. No fracture. There is mild osteoarthritis of patellofemoral farhan rtment characterized by tiny osteophytes. There is an enthesophyte at the origin of medial collateral ligament. There is a small knee joint effusion. IMPRESSION: 1. Mild left knee osteoarthritis. 2. Small left knee joint effusion. Reviewed, dictated and finalized at location A.
[2022-01-01 03:27] VITALS: BP 141/102; PULSE 94; RESP 18; O2SAT 97
[2022-01-01] MEDS: ACETAMINOPHEN 325 MG TABLET 650 MG PO (03:35)
--- NOTE | 2022-01-01 04:14 | ED.FALL ---
HPI - Fall General Chief Complaint: Fall Stated Complaint: Fall, L leg pain Time Seen by Provider: 01/01/22 03:18 History of Present Illness HPI Narrative: Patient is a 61-year-old male who presents ER with left knee/leg pain. He reports he was in his closet looking for a dish and fell forward causing the dish to break. He felt some strain in his left knee. He is able to get up and walk afterwards. Later in the evening he developed increased pain just below his knee. It causes him pain with bearing weight. No numbness or tingling. Did not strike his head or lose consciousness. Related Data Home Medications Medication Instructions Recorded Confirmed amlodipine 10 mg tablet 10 mg PO DAILY 01/24/19 11/18/21 bupropion HCl 150 mg tablet,12 hr 150 mg PO BID 01/24/19 11/18/21 sustained-release (Wellbutrin SR) doxazosin 2 mg tablet (Cardura) 2 mg PO HS 01/24/19 11/18/21 dulaglutide 1.5 mg/0.5 mL 1.5 mg subcut WEEKLY 01/24/19 11/18/21 subcutaneous pen injector (Trulicity) metformin 1,000 mg tablet 1,000 mg PO BID 01/24/19 11/18/21 rivaroxaban 2.5 mg tablet (Xarelto) 2.5 mg PO BID 01/24/19 11/18/21 omeprazole 40 mg capsule,delayed 40 mg PO DAILY 04/13/19 11/18/21 release carvedilol 25 mg tablet (Coreg) 25 mg PO BID 04/28/19 11/18/21 atorvastatin 40 mg tablet 80 mg PO HS 05/16/19 11/18/21 albuterol sulfate 90 mcg/actuation 2 puff inhalation Q4-6H PRN 01/09/20 11/18/21 aerosol inhaler (Ventolin HFA) Shortness Of Breath budesonide-formoterol HFA 160 2 puff inhalation BID 01/09/20 11/18/21 mcg-4.5 mcg/actuation aerosol inhaler (Symbicort) isosorbide mononitrate 60 mg 120 mg PO DAILY 01/09/20 11/18/21 tablet,extended release 24 hr loratadine 10 mg tablet (Claritin) 10 mg PO DAILY 03/15/20 11/18/21 alprazolam 0.25 mg tablet 0.25 mg PO HS 08/21/21 11/18/21 montelukast 10 mg tablet 1 tablet PO HS 08/21/21 11/18/21 aspirin 81 mg chewable tablet 81 mg PO DAILY 09/29/21 11/18/21 (Children's Aspirin) Allergies Allergy/AdvReac Type Severity Reaction Status Date / Time No Known Allergies Allergy Unknown Verified 01/01/22 03:32 Review of Systems Musculoskeletal: Musculoskeletal: Denies back pain, Reports arthralgias and Denies joint swelling Integumentary/Breasts: Skin/Breast: Denies erythema and Denies rash Neurologic: Denies focal weakness and Denies numbness [facility] Past Medical History Medical History Anxiety Arthritis 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 Chronic anticoagulation Chronic obstructive pulmonary disease Congestive heart failure Coronary artery disease Deep venous thrombosis Depression Diabetic peripheral neuropathy Eczema Gastric ulcer Gastroesophageal reflux disease GI bleed Hearing loss Hyperlipidemia Hypertension Kidney stones Medial meniscus tear Myocardial infarction Nausea and vomiting Obstructive sleep apnea on CPAP Peripheral vascular disease Pneumonia Psoriasis Rectal polyp Seasonal allergies Transient ischemic attack Type 2 diabetes mellitus Surgical History Surgical History History of cardiac catheterization 2 stents History of cholecystectomy History of heart artery stent X2. History of lithotripsy History of loop recorder History of rectal polypectomy History of tonsillectomy Family History Family History Mother Diabetes mellitus Kidney stones Arthritis Father Acute myocardial infarction Heart disease Kidney stones Hypertension Sibling Coronary artery disease Heart disease Hx of CABG Social History Social History Social History: Surrogate decision maker: Rena Dodd, friend. Code status: Full code. Smoking packs per day: 0.25 Smoking ciga
== END 2022-01-01 04:34 | disposition home or self-care (01) ==
PROVIDERS: Emergency Provider Emergency Medicine; PCP Registered Nurse
DX: S83.92XA Sprain of unspecified site of left knee, initial encounter (principal); I69.954 Hemiplegia and hemiparesis following unspecified cerebrovascular disease affecting left non-dominant side; I25.10 Atherosclerotic heart disease of native coronary artery without angina pectoris; I50.9 Heart failure, unspecified; I11.0 Hypertensive heart disease with heart failure; E11.42 Type 2 diabetes mellitus with diabetic polyneuropathy; G47.33 Obstructive sleep apnea (adult) (pediatric); E11.51 Type 2 diabetes mellitus with diabetic peripheral angiopathy without gangrene; I73.9 Peripheral vascular disease, unspecified; I25.2 Old myocardial infarction; K21.9 Gastro-esophageal reflux disease without esophagitis; Z86.718 Personal history of other venous thrombosis and embolism; Z87.01 Personal history of pneumonia (recurrent); Z87.19 Personal history of other diseases of the digestive system; Z79.01 Long term (current) use of anticoagulants; Z79.84 Long term (current) use of oral hypoglycemic drugs; Z79.82 Long term (current) use of aspirin; Z95.5 Presence of coronary angioplasty implant and graft; F17.210 Nicotine dependence, cigarettes, uncomplicated; W18.39XA Other fall on same level, initial encounter
CPT/HCPCS: 73562; 99283; A9270

== ENCOUNTER 2022-01-10 12:28 | Emergency (ER) | payer MEDICARE, MEDICAID, SELFPAY ==
[2022-01-10 12:38] VITALS: BP 148/89; PULSE 84; RESP 16; TEMP 36.4; O2SAT 98
--- NOTE | 2022-01-10 13:02 | ED.LOWEXIN ---
HPI - Extremity Injury (Lower) General Chief Complaint: Extremity Injury, Lower Stated Complaint: FALL/L KNEE PAIN Time Seen by Provider: 01/10/22 12:58 Source: patient and RN notes reviewed Mode of arrival: ambulatory Limitations: no limitations History of Present Illness HPI Narrative: [age] year old male presents with concern for left knee pain. Reports 10 days ago he fell causing the injury. Reports he went to the emergency room where they did an x-ray that was normal. Reports his pain has continued and is now going down his leg. He reports pain is present whether he is active or not, he taking Tylenol without relief. He could not get in with his primary care doctor. He reports he has tried elevation ice. MD complaint: knee injury Related Data Home Medications Medication Instructions Recorded Confirmed amlodipine 10 mg tablet 10 mg PO DAILY 01/24/19 01/10/22 bupropion HCl 150 mg tablet,12 hr 150 mg PO BID 01/24/19 01/10/22 sustained-release (Wellbutrin SR) doxazosin 2 mg tablet (Cardura) 2 mg PO HS 01/24/19 01/10/22 dulaglutide 1.5 mg/0.5 mL 1.5 mg subcut WEEKLY 01/24/19 01/10/22 subcutaneous pen injector (Trulicity) metformin 1,000 mg tablet 1,000 mg PO BID 01/24/19 01/10/22 rivaroxaban 2.5 mg tablet (Xarelto) 2.5 mg PO BID 01/24/19 01/10/22 omeprazole 40 mg capsule,delayed 40 mg PO DAILY 04/13/19 01/10/22 release carvedilol 25 mg tablet (Coreg) 25 mg PO BID 04/28/19 01/10/22 atorvastatin 40 mg tablet 80 mg PO HS 05/16/19 01/10/22 albuterol sulfate 90 mcg/actuation 2 puff inhalation Q4-6H PRN 01/09/20 01/10/22 aerosol inhaler (Ventolin HFA) Shortness Of Breath budesonide-formoterol HFA 160 2 puff inhalation BID 01/09/20 01/10/22 mcg-4.5 mcg/actuation aerosol inhaler (Symbicort) isosorbide mononitrate 60 mg 120 mg PO DAILY 01/09/20 01/10/22 tablet,extended release 24 hr loratadine 10 mg tablet (Claritin) 10 mg PO DAILY 03/15/20 01/10/22 alprazolam 0.25 mg tablet 0.25 mg PO HS 08/21/21 01/10/22 montelukast 10 mg tablet 1 tablet PO HS 08/21/21 01/10/22 aspirin 81 mg chewable tablet 81 mg PO DAILY 09/29/21 01/10/22 (Children's Aspirin) Allergies Allergy/AdvReac Type Severity Reaction Status Date / Time No Known Allergies Allergy Unknown Verified 01/10/22 12:54 Review of Systems Review of Systems: CONSTITUTIONAL: Denies malaise, chills, sweats, or fever. SKIN: Denies rash or itching, open skin, laceration, abrasion, redness, warmth, swelling. 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 Chronic anticoagulation Chronic obstructive pulmonary disease Congestive heart failure Coronary artery disease Deep venous thrombosis Depression Diabetic peripheral neuropathy Eczema Gastric ulcer Gastroesophageal reflux disease GI bleed Hearing loss Hyperlipidemia Hypertension Kidney stones Medial meniscus tear Myocardial infarction Nausea and vomiting Obstructive sleep apnea on CPAP Peripheral vascular disease Pneumonia Psoriasis Rectal polyp Seasonal allergies Transient ischemic attack Type 2 diabetes mellitus Surgical History Surgical History History of cardiac catheterization 2 stents History of cholecystectomy History of heart artery stent X2. History of lithotripsy History of loop recorder History of rectal polypectomy History of tonsillectomy Family History Family History Mother Diabetes mellitus Kidney stones Arthritis Father Acute myocardial infarction Heart disease Kidney stones Hypertension Sibling Coronary artery d
== END 2022-01-10 13:16 | disposition home or self-care (01) ==
PROVIDERS: Emergency Provider Nurse Practitioner; PCP Registered Nurse
DX: M25.562 Pain in left knee (principal); J44.9 Chronic obstructive pulmonary disease, unspecified; I11.0 Hypertensive heart disease with heart failure; I50.9 Heart failure, unspecified; E11.9 Type 2 diabetes mellitus without complications; I25.10 Atherosclerotic heart disease of native coronary artery without angina pectoris; F41.9 Anxiety disorder, unspecified; F32.9 Major depressive disorder, single episode, unspecified; F17.210 Nicotine dependence, cigarettes, uncomplicated
CPT/HCPCS: 99213; G0463

== ENCOUNTER 2022-01-17 13:36 | Observation (INO) | payer MEDICARE, MEDICAID, SELFPAY ==
[2022-01-17] VITALS (16 sets, daily range): BP systolic 109–123; BP diastolic 64–76; PULSE 69–84; RESP 14–20; TEMP 35.6–36.9; O2SAT 96–100
--- NOTE | ~2022-01-17 | CT_ITS ---
EXAMINATION: CT brain wo con DATE: 01/17/2022 13:48 INDICATION: Left facial weakness. Slurred speech. TECHNIQUE: Computed tomography (CT) of the head was performed without intravenous contrast. The mA wa s adjusted according to patient size. Iterative reconstruction technique was employed. The dose-lengt h product was 605.33 mGy-cm. COMPARISON: Head CT 09/10/2020 FINDINGS: There are scattered areas of low attenuation in the cerebral white matter. There is an old infarct in the right frontoparietal aguayo radiata. There is no intracranial hemorrhage, acute infarc tion, or abnormal intracranial mass lesion. The ventricles are normal in size. The orbits are normal. There is mild mucosal thickening in the ethmoid sinuses. The mastoid air cells are normal. IMPRESSION: 1. Old infarct in the right frontoparietal aguayo radiata. 2. Stable mild nonspecific cerebral white matter disease, which likely represents chronic small vesse l ischemic disease. 3. I discussed this case with Dr. Azul. Reviewed, dictated and finalized at location A. T PAROLE OFFICER IMPRESSION: 1. Old infarct in the right frontoparietal aguayo radiata. 2. Stable mild nonspecific cerebral white matter disease, which likely represen ts chronic small vessel ischemic disease. 3. I discussed this case with Dr. Azul.
--- NOTE | ~2022-01-17 | MR_ITS ---
EXAMINATION: MR brain/brain stem wo/w con DATE: 01/18/2022 15:04 INDICATION: Stroke with left-sided weakness TECHNIQUE: Magnetic resonance imaging (MRI) of the brain and brainstem was performed without and with 20 mL Multihance intravenous contrast. Sequences included sagittal and axial T1-weighted SE, axial d iffusion-weighted FS SE, axial T2*-weighted GRE, axial T2-weighted FLAIR, and axial T2-weighted FSE. Postcontrast axial and coronal T1-weighted SE was obtained. Apparent diffusion coefficient (ADC) maps were created. COMPARISON: Head CT and CT angiogram dated 01/17/2022 and brain MR dated 09/30/2019 FINDINGS: Again seen is a small old lacunar infarct at the right frontoparietal aguayo radiata. There are no ar eas of restricted diffusion to suggest acute infarction. No intracranial hemorrhage or abnormal intra cranial mass lesion. There are scattered areas of nonspecific increased T2-weighted signal intensity in the cerebral white matter, predominantly involving the deep and periventricular white matter. Ther e are no intraparenchymal signal abnormalities seen on the other pulse sequences. The ventricles are symmetric and normal in size. There are no abnormal extra-axial fluid collections. Flow voids are see n in the cerebral arteries on the T2-weighted sequences consistent with their expected patency. Visua lized orbits and soft tissues are unremarkable. There are no areas of abnormal enhancement on the pos t contrast images. IMPRESSION: 1. Unchanged small old lacunar infarct at the right frontoparietal aguayo radiata. No acute intracran ial process or abnormally enhancing brain lesions. 2. No significant change in mild scattered white matter T2 hyperintensity consistent with chronic sma ll vessel ischemic disease. Reviewed, dictated and finalized at location A. ERN PUNCHER IMPRESSION: 1. Unchanged small old lacunar infarct at the right frontoparietal aguayo radia ta. No acute intracranial process or abnormally enhancing brain lesions. 2. No significant change in mild scattered white matter T2 hyperintensity consi stent with chronic small vessel ischemic disease.
--- NOTE | ~2022-01-17 | XR_ITS ---
XR chest 1V DATE: 01/17/2022 15:07 INDICATION: Dizziness since yesterday. Weakness. History of strokes. History of congestive heart fail ure. TECHNIQUE: PA chest COMPARISON: 11/18/2021 PA and lateral chest 09/29/2021 2 view chest FINDINGS: Chronic mild bilateral pleural thickening. Chronic mild bibasilar atelectasis or fibrotic change. Heart size appears within normal range. There is mild aortic unfolding. No hilar or mediastinal enlar gement. Electronic monitor device overlies the lower left chest. Osteopenia. Degenerative spurring of the thoracic and lumbar spine. IMPRESSION: Minimal bibasilar atelectasis or fibrotic change No significant change since 09/29/2021 Reviewed, dictated and finalized at location B. RPROOF COATING MACHINE TENDER
--- NOTE | ~2022-01-17 | CT_ITS ---
EXAMINATION: CTA brain carotid DATE: 01/17/2022 15:51 INDICATION: Left hemiparesis. TECHNIQUE: Computed tomographic angiography (CTA) of the head was performed with 100 mL Omnipaque-350 intravenous contrast. CTA of the neck was performed with intravenous contrast. Automated exposure co ntrol and iterative reconstruction technique were employed. The dose-length product was 1265.79 mGy-c m. Maximum intensity projection and volume rendered 3D-reconstructions were created by the technrobertai on a separate workstation. COMPARISON: Head CT 01/17/2022 FINDINGS: HEAD CTA: There are scattered areas of low attenuation in the cerebral white matter. There is an old infarct in the right frontoparietal aguayo radiata. There is no intracranial hemorrhage, acute infarc tion, or abnormal intracranial mass lesion. The ventricles are normal in size. There is mild mucosal thickening in the paranasal sinuses. The orbits are normal. The mastoid air cells are normal. The gisselle tebral arteries are codominant. There is no significant stenosis of basilar artery or the posterior c erebral arteries. There is no significant stenosis of the intracranial internal carotid arteries or a nterior or middle cerebral arteries. Anterior communicating artery is normal. The posterior communica ting arteries are normal. There is no aneurysm. NECK CTA: There are no pathologically enlarged lymph nodes. There is no significant stenosis of the v ertebral arteries. There is mild plaque in the proximal internal carotid arteries. There is 0% stenos is of the proximal right internal carotid artery relative to normal distal artery lumen diameter (KENDALL CET criteria). There is 0% stenosis of the proximal left internal carotid artery relative to normal d istal artery lumen diameter. There is a 9 mm subcutaneous cyst in right posterior neck, likely a seba ceous cyst. There is moderate cervical spondylosis. IMPRESSION: 1. Old infarct in the right frontoparietal aguayo radiata. 2. Mild nonspecific cerebral white matter disease, which likely represents chronic small vessel ische kemi disease. 3. No aneurysm or significant intracranial calcinosis. 4. 0% stenosis of the proximal internal carotid arteries relative to normal distal artery lumen diame ters (NASCET criteria). Reviewed, dictated and finalized at location A. E LICENSED PRACTICAL IMPRESSION: 1. Old infarct in the right frontoparietal aguayo radiata. 2. 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 3. No aneurysm or significant intracranial calcinosis. 4. 0% stenosis of the proximal internal carotid arteries relative to normal dis fei artery lumen diameters (NASCET criteria).
--- NOTE | 2022-01-17 13:42 | ECG_ITS ---
Measurements Intervals [place] Rate: 79 P: 63 MO: 164 QRS: 18 QRSD: 150 T: 43 QT: 402 QTc: 463 Interpretive Statements SINUS RHYTHM RIGHT BUNDLE BRANCH BLOCK CONSIDER INFERIOR INFARCT, AGE INDETERMINATE BASELINE ARTIFACT- I, III, AVL, AVF, V4, V6 ABNORMAL ECG COMPARED TO ECG 12/02/2021 15:04:33 NO SIGNIFICANT CHANGES Electronically Signed On 01-17-2022 16:29:25 [employer] by Mathew Landon D.O.
[2022-01-17 14:12] LABS: Basophils Percent Auto 0.3 % (0.2-1.2); Eosinophils Absolute Auto 0.2 K/mm3 (0-0.3); Hematocrit 40.1 % (42.0-52.0); Hemoglobin 13.7 g/dL (14.0-18.0); Immature Granulocyte Absolute 0.03 K/mm3 (0.00-0.031); Immature Granulocyte Percent A 0.4 % (0-0.5); Lymphocytes Absolute Auto 1.22 K/mm3 (0.9-3.2); Lymphocytes Percent Auto 15.3 % (18.3-44.2); Mean Corpuscular HGB Conc 34.2 g/dl (32-36); Mean Corpuscular Hemoglobin 30.8 pg (26-34); Mean Corpuscular Volume 90.1 fl (80-100); Mean Platelet Volume 10.5 fl (7.4-10.4); Monocytes Absolute Auto 0.7 K/mm3 (0.1-0.6); Monocytes Percent Auto 8.3 % (2.6-8.5); Neutrophils Absolute Auto 5.9 K/mm3 (1.3-6.7); Neutrophils Percent Auto 73.7 % (45.5-73.1); Platelet Count Result 150 k/mm3 (150-375); Red Blood Count 4.45 M/mm3 (4.6-6.20)
[2022-01-17 14:27] LABS: Alanine Aminotransferase 43 U/L (6-50); Albumin Level 4.4 g/dL (3.5-5.1); Alkaline Phosphatase 55 U/L (38-126); Anion Gap 9 mmol/L (8-16); Aspartate Amino Transferase 37 U/L (17-59); Bilirubin,Total 0.8 mg/dL (0.2-1.3); Blood Urea Nitrogen 17 mg/dL (9-20); Calcium 9.2 mg/dL (8.4-10.2); Carbon Dioxide 25 mmol/L (22-30); Chloride 98 mmol/L (98-107); Estimated CRCL calculation 100 ml/min; Estimated Glomerular Filt Rate > 60; Glucose 180 mg/dL (65-110); Potassium 4.2 mmol/L (3.4-5.0); Sodium 132 mmol/L (137-145)
[2022-01-17 14:29] LABS: INR 1.3; Prothrombin Time 15.9 Seconds (11.1-14.7)
[2022-01-17 14:30] LABS: Partial Thromboplastin Time 34.3 SECONDS (22.3-36.8)
[2022-01-17 14:39] LABS: Troponin I < 0.012 ng/mL (0.000-0.034)
--- NOTE | 2022-01-17 15:23 | ED.GENADULT ---
HPI - General Adult General Chief complaint: Neuro Symptoms/Deficit Stated complaint: weakness Time Seen by Provider: 01/17/22 15:09 History of Present Illness HPI narrative: 61-year-old male presented the emergency department for evaluation of left-sided weakness and generalized feeling of unwell patient states yesterday at approximately 1 AM he started having some intermittent left-sided facial and left arm weakness. Patient does have a prior history of a CVA in 2007. Related Data Home Medications Medication Instructions Recorded Confirmed amlodipine 10 mg tablet 10 mg PO DAILY 01/24/19 01/17/22 bupropion HCl 150 mg tablet,12 hr 150 mg PO BID 01/24/19 01/17/22 sustained-release (Wellbutrin SR) doxazosin 2 mg tablet (Cardura) 2 mg PO HS 01/24/19 01/17/22 dulaglutide 1.5 mg/0.5 mL 1.5 mg subcut WEEKLY 01/24/19 01/17/22 subcutaneous pen injector (Trulicity) metformin 1,000 mg tablet 1,000 mg PO BID 01/24/19 01/17/22 rivaroxaban 2.5 mg tablet (Xarelto) 2.5 mg PO BID 01/24/19 01/17/22 omeprazole 40 mg capsule,delayed 40 mg PO DAILY 04/13/19 01/17/22 release carvedilol 25 mg tablet (Coreg) 25 mg PO BID 04/28/19 01/17/22 atorvastatin 40 mg tablet 80 mg PO HS 05/16/19 01/17/22 albuterol sulfate 90 mcg/actuation 2 puff inhalation Q4-6H PRN 01/09/20 01/17/22 aerosol inhaler (Ventolin HFA) Shortness Of Breath isosorbide mononitrate 60 mg 120 mg PO DAILY 01/09/20 01/17/22 tablet,extended release 24 hr loratadine 10 mg tablet (Claritin) 10 mg PO DAILY 03/15/20 01/17/22 alprazolam 0.25 mg tablet 0.25 mg PO HS 08/21/21 01/17/22 montelukast 10 mg tablet 1 tablet PO HS 08/21/21 01/17/22 aspirin 81 mg chewable tablet 81 mg PO DAILY 09/29/21 01/17/22 (Children's Aspirin) losartan 100 mg tablet 100 mg PO DAILY 01/17/22 01/17/22 Allergies Allergy/AdvReac Type Severity Reaction Status Date / Time No Known Allergies Allergy Unknown Verified 01/10/22 12:54 Review of Systems Review of Systems: CONSTITUTIONAL: Denies fever, chills, or sweats. EYES: Denies visual changes, redness, or discharge. ENT: Denies rhinorrhea, congestion, sore throat, or otalgia. CARDIOVASCULAR: Denies chest pain, palpitations, or edema. RESPIRATORY: Denies cough or dyspnea. GASTROINTESTINAL: Denies abdominal pain, nausea, vomiting, or diarrhea. GENITOURINARY: Denies dysuria or hematuria. SKIN: Denies rash or itching. MUSCULOSKELETAL: Denies back pain, joint pain, or myalgia. 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 Chronic anticoagulation Chronic obstructive pulmonary disease Congestive heart failure Coronary artery disease Deep venous thrombosis Depression Diabetic peripheral neuropathy Eczema Gastric ulcer Gastroesophageal reflux disease GI bleed Hearing loss Hyperlipidemia Hypertension Kidney stones Medial meniscus tear Myocardial infarction Nausea and vomiting Obstructive sleep apnea on CPAP Peripheral vascular disease Pneumonia Psoriasis Rectal polyp Seasonal allergies Transient ischemic attack Type 2 diabetes mellitus Surgical History Surgical History History of cardiac catheterization 2 stents History of cholecystectomy History of heart artery stent X2. History of lithotripsy History of loop recorder History of rectal polypectomy History of tonsillectomy Family History Family History Mother Diabetes mellitus Kidney stones Arthritis Father Acute myocardial infarction Heart disease Kidney stones Hypertension Sibling Coronary artery disease Heart disease Hx of CABG Social History Social History Social History:
[2022-01-17 15:35] LABS: Glucose Point of Care 160 mg/dl (65-105)
--- NOTE | 2022-01-17 17:32 | PM.IMHP ---
H&P: HPI History of Present Illness Date/Time: 01/17/22 17:32 Chief Complaint: Neurological deficit Narrative: This is a 61-year-old male patient who has had a past medical history of having a CVA with some mild left sided residual. Patient stated yesterday around 1:00 a.m. he started to have some intermittent left-sided facial droop and left arm weakness. His last CVA was in 2007. The patient is currently on Xarelto. When I examined the patient he was slightly weak to the left upper lower extremity and a slight facial droop. The patient stated that his significant other noticed that the facial droop was more significant than other times. Head and neck CTA was read as the following1. Old infarct in the right frontoparietal aguayo radiata. 2. Mild nonspecific cerebral white matter disease, which likely represents chronic small vessel ischemic disease. 3. No aneurysm or significant intracranial calcinosis. 4. 0% stenosis of the proximal internal carotid arteries relative to normal distal artery lumen diameters (NASCET criteria Chest x-ray was read as minimal bibasilar atelectasis or fibrotic change. Head CT was read as the following. Old infarct in the right frontoparietal aguayo radiata. 2. Stable mild nonspecific cerebral white matter disease, which likely represents chronic small vessel ischemic disease. 3. I discussed this case with Dr. Azul. -neurology has been consulted. His H&H is 13.7 and 40.1. This is the patient's baseline. His sodium is 132 with a previous sodium of 136. His blood sugars anywhere from 160-180. Last A1c was noted to be 6.9 on 11/18/2021. The patient is being admitted to observation status on the date of service of 01/17/2022 Review of Systems Review of Systems: See HPI All systems reviewed & are unremarkable except as noted in HPI and below Constitutional: Constitutional: Reports as per HPI and Reports no additional constitutional complaints Eyes: Eyes: Reports as per HPI and Reports no additional eye complaints ENT: Reports system reviewed and no additional complaints, except as documented and Reports Normal hearing present Cardiovascular: Cardiovascular: Reports no additional cardiovascular complaints Respiratory: Respiratory: Reports no additional respiratory complaints and Reports no additional respiratory complaints Gastrointestinal: Gastrointestinal: Reports as per HPI and Reports no additional gastrointestinal complaints Musculoskeletal: Musculoskeletal: Reports no additional musculoskeletal complaints Integumentary/Breasts: Skin/Breast: Reports system reviewed and no additional complaints, except as docu and Reports as per HPI Neurologic: Reports system reviewed and no additional complaints, except as documented, Reports as per HPI and Reports Normal hearing present Psychiatric: Psychiatric: Reports no additional psychiatric complaints and Reports as per HPI Endocrine: Endocrine: Reports no additional endocrine complaints Hematologic/Lymphatic: Hematologic/Lymphatic: Reports no additional hematologic/lymphatic complaints Allergic/Immunologic: Allergic/Immunologic: Reports no additional allergic/immunologic complaints [facility] Past Medical History Medical History (Updated 01/17/22 @ 18:54 by Jennifer Paredes NP) Anxiety Arthritis 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 Chest pain Chest pain at rest Chronic anticoagulation Chronic obstructive pulmonary disease Congestive heart failure Coronary artery disease Deep venous thrombosis Depression Diabetic peripheral neuropathy Eczema Gastric ulcer Gastroesophageal reflux disease GI bleed Hearing loss Hyperlipidemia Hypertension Kidney stones Left ureteral stone Medial meniscus tear Myocardial infarction Nausea and vomiting Obstructive sleep apnea on CPAP TAMIR on CPAP Peripheral vascular disease Pneumonia Psoriasis Rectal polyp Season
--- NOTE | 2022-01-17 18:02 | ADMGEN ---
This patient, Vini Zambrano, was admitted to Medical Room 348-01 @ 1800. Patient/family oriented to hospital policies and general routines including ID bracelet, bed and alarms, visiting hours, pain management, procedures, bathroom and other care routines, personal items, smoking policy, room service/diet, and visiting hours. Information on how to activate the Rapid Response Team has been discussed. Patient/Family are encouraged to report perceived risks to care and to ask questions if they do not understand what they are told or what they should do.
[2022-01-17] MEDS: RIVAROXABAN 2.5 MG TABLET PO (20:05)
[2022-01-17] MEDS: ALPRAZolam (*CRX) 0.25 MG TABLET PO (20:05)
[2022-01-17] MEDS: buPROPion HCL SR (12 HR) 150 MG TAB PO (20:05)
[2022-01-17] MEDS: DOXAZOSIN MESYLATE 2 MG TABLET PO (20:06)
[2022-01-17] MEDS: ATORVASTATIN 40 MG TABLET 80 MG PO (20:06)
[2022-01-17] MEDS: carvediloL 25 MG TABLET PO (20:06)
[2022-01-17] MEDS: MONTELUKAST SODIUM 10 MG TABLET PO (20:10)
[2022-01-17 20:38] LABS: Glucose Point of Care 203 mg/dl (65-105)
[2022-01-17 20:55] LABS: Influenza A QL RT-PCR Negative (Negative); Influenza B QL RT-PCR Negative (Negative); SARS-CoV-2 RNA PCR Negative
[2022-01-18] VITALS (12 sets, daily range): BP systolic 106–134; BP diastolic 65–77; PULSE 72–85; RESP 16–26; TEMP 35.7–36.6; O2SAT 95–99
--- NOTE | 2022-01-18 | ECHO_ITS ---
Patient Info Name: Vini Zambrano Age: 61 years : 1960 Gender: Male Ht: 72 in Wt: 320 lbs BSA: 2.78 m2 HR: 78 bpm BP: 134 / 77 mmHg Heart Rhythm: Sinus Rhythm Technical Quality: Poor Exam Date: 01/18/2022 8:06 AM Exam Location: [facility] Patient Status: Inpatient Admit Date: 01/17/2022 Staff Ordering Physician: Jennifer Paredes NP Customer Service Advisor: Alejandra Hoffman RDCS Attending Provider: Fahad Avila MD Referring Physician: Lena VILLAREAL; Exam Type: CA echo dop color flow w con Study Info Indications I63.231 - Cerebral infarction due to unspecified occlusion or stenosis of right carotid arteries Complete two-dimensional, color flow and Doppler transthoracic echocardiogram is performed with contrast to opacify the left ventricle and to improve the deliniation of the left ventricle endocardial borders. Contrast/Agitated Saline Contrast/Ag. Saline: Definity Amount: 4.00 ml Administered By: Alejandra Hoffman [facility] Reason for Poor Study: patient body habitus Summary 1. Left ventricular chamber dimension is normal. 2. Left ventricular systolic function is normal, estimated at 65-70%. 3. There is moderately increased left ventricular wall thickness. 4. The left ventricular diastolic function is grade I diastolic dysfunction. 5. Left atrial chamber dimension is mildly enlarged. Left Ventricle Left ventricular chamber dimension is normal. Left ventricular systolic function is normal, estimated at 65-70%. There is moderately increased left ventricular wall thickness. The left ventricular diastolic function is grade I diastolic dysfunction. Right Ventricle Right ventricular chamber dimension is normal. Right ventricular systolic function is normal. Left Atria Left atrial chamber dimension is mildly enlarged. Right Atria Right atrial chamber dimension is normal. Atrial Septum Intact interatrial septum visualized by color flow imaging. Aortic Valve The aortic valve is not well visualized. There is no aortic valve stenosis. There is trace aortic valve regurgitation. Pulmonic Valve The pulmonic valve is normal. There is no pulmonic valve stenosis. There is trace pulmonic regurgitation. Mitral Valve The mitral valve has thickened leaflets. There is no mitral valve stenosis. There is trace mitral valve regurgitation. Tricuspid Valve The tricuspid valve leaflets are normal. There is no significant tricuspid valve stenosis. There is trace tricuspid valve regurgitation. No pulmonary hypertension, estimated pulmonary arterial systolic pressure is 22 mmHg. Pericardium/Pleural The pericardium appears normal. There is no pericardial effusion. Inferior Vena Cava Normal inferior vena cava with >50% collapse upon inspiration consistent with normal right atrial pressure, 5 mmHg. Aorta The aortic root size at the sinus of Valsalva is normal. Left Ventricular Outflow Tract Name Value Normal LVOT 2D LVOT Diameter 2.27 cm LVOT Doppler LVOT Peak Gradient 5 mmHg LVOT Mean Gradient
[2022-01-18 06:45] LABS: Basophils Percent Auto 0.1 % (0.2-1.2); Eosinophils Absolute Auto 0.2 K/mm3 (0-0.3); Eosinophils Percent Auto 2.4 % (0-4.4); Hematocrit 38.4 % (42.0-52.0); Hemoglobin 13.3 g/dL (14.0-18.0); Immature Granulocyte Absolute 0.05 K/mm3 (0.00-0.031); Immature Granulocyte Percent A 0.7 % (0-0.5); Immature Platelet Fraction Pct 7.3 % (0.9-11.2); Lymphocytes Absolute Auto 1.44 K/mm3 (0.9-3.2); Lymphocytes Percent Auto 19.6 % (18.3-44.2); Mean Corpuscular HGB Conc 34.6 g/dl (32-36); Mean Corpuscular Hemoglobin 31.4 pg (26-34); Mean Corpuscular Volume 90.8 fl (80-100); Mean Platelet Volume 10.9 fl (7.4-10.4); Monocytes Absolute Auto 0.7 K/mm3 (0.1-0.6); Monocytes Percent Auto 9.1 % (2.6-8.5); Neutrophils Percent Auto 68.1 % (45.5-73.1); Platelet Count Result 138 k/mm3 (150-375); Red Blood Count 4.23 M/mm3 (4.6-6.20); Red Cell Distribution Width 13.1 % (11.5-14.5); White Blood Count 7.4 K/mm3 (4.5-10.0)
[2022-01-18 07:01] LABS: Alanine Aminotransferase 46 U/L (6-50); Albumin Level 4.3 g/dL (3.5-5.1); Alkaline Phosphatase 69 U/L (38-126); Anion Gap 11 mmol/L (8-16); Aspartate Amino Transferase 36 U/L (17-59); Bilirubin,Total 0.7 mg/dL (0.2-1.3); Blood Urea Nitrogen 18 mg/dL (9-20); Carbon Dioxide 24 mmol/L (22-30); Chloride 101 mmol/L (98-107); Estimated CRCL calculation 100 ml/min; Estimated Glomerular Filt Rate > 60; Glucose 146 mg/dL (65-110); Magnesium 1.7 mg/dL (1.6-2.3); Potassium 3.8 mmol/L (3.4-5.0); Sodium 136 mmol/L (137-145)
[2022-01-18 07:02] LABS: Lactic Acid Reflex 1.5 mmol/L (0.7-2.0)
[2022-01-18] MEDS: LOSARTAN POTASSIUM 100 MG TABLET PO (08:49)
[2022-01-18] MEDS: ASPIRIN 81 MG CHEWABLE TABLET PO (08:49)
[2022-01-18] MEDS: PANTOPRAZOLE 40 MG TABLET PO ×2 (08:49→20:28)
[2022-01-18] MEDS: ISOSORBIDE MONONITRATE 60 MG TAB.ER.24H 120 MG PO (08:49)
[2022-01-18] MEDS: buPROPion HCL SR (12 HR) 150 MG TAB PO ×2 (08:49→20:28)
[2022-01-18] MEDS: amLODIPine BESYLATE 5 MG TABLET 10 MG PO (08:50)
[2022-01-18] MEDS: LORATADINE 10 MG TABLET PO (08:50)
[2022-01-18] MEDS: RIVAROXABAN 2.5 MG TABLET PO ×2 (08:50→17:49)
[2022-01-18] MEDS: carvediloL 25 MG TABLET PO ×2 (08:50→20:28)
[2022-01-18 09:05] LABS: Glucose Point of Care 168 mg/dl (65-105)
--- NOTE | 2022-01-18 11:00 | PM.IMPN ---
Progress Note: A&P Assessment and Plan (1) Weakness: Code(s): R53.1 - Weakness Status: Acute Assessment and Plan: -the patient stated that he has had a history of having 2 strokes in the past. The when he was unaware of in the other when he was definitely aware of. The patient stated he has been taking his medication as prescribed. -patient stated that his roommate noticed that he had more of a facial droop than normal to the left side. -the patient feels weaker on the left side that he typically does. He does have some residual from the last stroke. -neurology has been consulted. -an MRI of the brain and brainstem have been ordered. -PT and OT evaluation greatly be appreciated. -head and neck CTA read as above with old infarction in the right frontoparietal aguayo radiata. -Echo ordered and awaiting read (2) Chronic anticoagulation: Code(s): Z79.01 - rat exterminator (current) use of anticoagulants Status: Chronic Assessment and Plan: Resume Xarelto Appears to be from MS, CAD, and multiple strokes Will probably need to switch to Eliquis if he did have a stroke (3) Chronic heart failure with preserved ejection fraction (HFpEF): Code(s): I50.32 - Chronic diastolic (congestive) heart failure Status: Acute Assessment and Plan: -an echo has been ordered. -resume losartan and Coreg Give one dose of lasix since he has the pitting edema and the crackles Appears to be chronic diastolic heart failure without exacerbation Daily weights Trend urine output (4) COPD (chronic obstructive pulmonary disease): Qualifiers: COPD type: unspecified COPD Qualified Code(s): J44.9 - Chronic obstructive pulmonary disease, unspecified Code(s): J44.9 - Chronic obstructive pulmonary disease, unspecified Status: Chronic Assessment and Plan: -continue with albuterol -continue with Singulair -the patient is not currently having an exacerbation. (5) CVA (cerebral vascular accident): Code(s): I63.9 - Cerebral infarction, unspecified Status: Chronic Assessment and Plan: -the patient has had a past history of having a CVA. -Continue atorvastatin. -he has also been on Xarelto, which will most likely need to be switched to Eliquis (6) Depression: Code(s): F32.9 - Major depressive disorder, single episode, unspecified Status: Chronic Assessment and Plan: Continue with Wellbutrin (7) Diabetes mellitus: Qualifiers: Diabetes mellitus type: type 2 Diabetes mellitus watermaster insulin use: with watermaster use Diabetes mellitus complication status: with hyperglycemia Qualified Code(s): E11.65 - Type 2 diabetes mellitus with hyperglycemia; Z79.4 - rat exterminator (current) use of insulin Code(s): E11.9 - Type 2 diabetes mellitus without complications Status: Chronic Assessment and Plan: -Current glucose is 146 -Accu-Cheks AC and HS -sliding scale insulin -Trulicity is non formulary. -Continue to hold metformin at this time. -hypoglycemic protocol. Trend glucose Adjust therapy as indicated (8) HLD (hyperlipidemia): Qualifiers: Hyperlipidemia type: unspecified Qualified Code(s): E78.5 - Hyperlipidemia, unspecified Code(s): E78.5 - Hyperlipidemia, unspecified Status: Chronic Assessment and Plan: -continue with atorvastatin (9) HTN (hypertension): Qualifiers: Hypertension type: secondary to endocrine disorders Qualified Code(s): I15.2 - Hypertension secondary to endocrine disorders Code(s): I10 - Essential (primary) hypertension Status: Chronic Assessment and Plan: Current BP is 106/65 -continue with Coreg -continue with Cardura -continue losartan -continue with isosorbide mononitrate. -continue with amlodipine -Trend BP Adjust therapy as indica
[2022-01-18 12:45] LABS: Glucose Point of Care 188 mg/dl (65-105)
[2022-01-18 13:04] LABS: Free T4 Free Thyroxine Reflex 1.01 ng/dL (0.78-2.19)
[2022-01-18] MEDS: LIDOCAINE 5% PATCH 1 PATCH TRANSDERM (13:50)
[2022-01-18] MEDS: LORazepam INJ (*CRX) 2 MG/ML VIAL 1 MG IV PUSH (14:09)
[2022-01-18 17:25] LABS: Glucose Point of Care 161 mg/dl (65-105)
[2022-01-18 20:20] LABS: Total Triiodothyronine (T3) 1.32 NG/ML (0.97-1.69)
[2022-01-18 20:25] LABS: Glucose Point of Care 179 mg/dl (65-105)
[2022-01-18] MEDS: MONTELUKAST SODIUM 10 MG TABLET PO (20:28)
[2022-01-18] MEDS: ATORVASTATIN 40 MG TABLET 80 MG PO (20:28)
[2022-01-18] MEDS: ALPRAZolam (*CRX) 0.25 MG TABLET PO (20:28)
[2022-01-18] MEDS: DOXAZOSIN MESYLATE 2 MG TABLET PO (20:30)
[2022-01-19] VITALS: PULSE 73
[2022-01-19 02:52] VITALS: PULSE 71; RESP 28; O2SAT 95
[2022-01-19 04:00] VITALS: PULSE 80
[2022-01-19 05:42] VITALS: BP 132/78; PULSE 75; RESP 20; TEMP 36.4; O2SAT 98
[2022-01-19] MEDS: traMADol HCL (*CRX) 50 MG TABLET PO (05:52)
[2022-01-19 07:42] VITALS: PULSE 96
[2022-01-19] MEDS: ISOSORBIDE MONONITRATE 60 MG TAB.ER.24H 120 MG PO (07:42)
[2022-01-19] MEDS: buPROPion HCL SR (12 HR) 150 MG TAB PO (07:42)
[2022-01-19] MEDS: LOSARTAN POTASSIUM 100 MG TABLET PO (07:42)
[2022-01-19] MEDS: ASPIRIN 81 MG CHEWABLE TABLET PO (07:42)
[2022-01-19] MEDS: PANTOPRAZOLE 40 MG TABLET PO (07:42)
[2022-01-19] MEDS: carvediloL 25 MG TABLET PO (07:42)
[2022-01-19] MEDS: amLODIPine BESYLATE 5 MG TABLET 10 MG PO (07:42)
[2022-01-19] MEDS: LORATADINE 10 MG TABLET PO (07:43)
[2022-01-19] MEDS: RIVAROXABAN 2.5 MG TABLET PO (07:43)
[2022-01-19] MEDS: LIDOCAINE 5% PATCH 1 PATCH TRANSDERM (07:43)
[2022-01-19 08:00] VITALS: PULSE 80; O2SAT 98
[2022-01-19 08:01] LABS: Glucose Point of Care 180 mg/dl (65-105)
[2022-01-19] MEDS: EMPAGLIFLOZIN 10 MG TABLET PO (09:23)
[2022-01-19 09:50] LABS: Basophils Percent Auto 0.3 % (0.2-1.2); Eosinophils Absolute Auto 0.2 K/mm3 (0-0.3); Eosinophils Percent Auto 2.2 % (0-4.4); Hematocrit 39.2 % (42.0-52.0); Hemoglobin 13.6 g/dL (14.0-18.0); Immature Granulocyte Absolute 0.01 K/mm3 (0.00-0.031); Immature Granulocyte Percent A 0.1 % (0-0.5); Immature Platelet Fraction Pct 8.1 % (0.9-11.2); Lymphocytes Absolute Auto 1.22 K/mm3 (0.9-3.2); Lymphocytes Percent Auto 16.6 % (18.3-44.2); Mean Corpuscular HGB Conc 34.7 g/dl (32-36); Mean Corpuscular Hemoglobin 31.2 pg (26-34); Mean Corpuscular Volume 89.9 fl (80-100); Mean Platelet Volume 11.4 fl (7.4-10.4); Monocytes Absolute Auto 0.7 K/mm3 (0.1-0.6); Monocytes Percent Auto 9.3 % (2.6-8.5); Neutrophils Absolute Auto 5.3 K/mm3 (1.3-6.7); Neutrophils Percent Auto 71.5 % (45.5-73.1); Platelet Count Result 145 k/mm3 (150-375); Red Blood Count 4.36 M/mm3 (4.6-6.20); Red Cell Distribution Width 13.1 % (11.5-14.5); White Blood Count 7.3 K/mm3 (4.5-10.0)
[2022-01-19 10:00] LABS: Cholesterol 115 mg/dL (0-200); HDL Direct 31 mg/dL; Triglycerides 277 mg/dL (<150)
[2022-01-19 10:01] LABS: Alanine Aminotransferase 47 U/L (6-50); Albumin Level 4.4 g/dL (3.5-5.1); Alkaline Phosphatase 69 U/L (38-126); Anion Gap 12 mmol/L (8-16); Aspartate Amino Transferase 35 U/L (17-59); Bilirubin,Total 0.7 mg/dL (0.2-1.3); Blood Urea Nitrogen 19 mg/dL (9-20); Calcium 9.1 mg/dL (8.4-10.2); Carbon Dioxide 24 mmol/L (22-30); Chloride 100 mmol/L (98-107); Estimated CRCL calculation 111 ml/min; Estimated Glomerular Filt Rate > 60; Glucose 161 mg/dL (65-110); Magnesium 1.7 mg/dL (1.6-2.3); Potassium 4.1 mmol/L (3.4-5.0); Sodium 136 mmol/L (137-145)
[2022-01-19 10:11] LABS: LDL Cholesterol Direct 45 mg/dL
--- NOTE | 2022-01-19 10:45 | PM.DS ---
DS: Admitting Diagnosis Discharge Date 01/19/22 1045 Admitting Diagnosis TIA DS: Discharge Diagnosis Discharge Diagnosis (1) TIA (transient ischemic attack): Code(s): G45.9 - Transient cerebral ischemic attack, unspecified Status: Resolved Assessment and Plan: Presented with left sided weakness CTA of the head and neck, no acute findings Brain MRI shows old infarcts without new findings Weakness is resolved neurology is consulted NIH is 0 Continue Xarelto, aspirin, consider changing aspirin Consider changing atorvastatin to Crestor depending on lipid panel (2) Chronic heart failure with preserved ejection fraction (HFpEF): Code(s): I50.32 - Chronic diastolic (congestive) heart failure Status: Acute Assessment and Plan: -an echo EF of 65% with a grade 1 diastolic dysfunction . -resume losartan and Coreg Give one dose of lasix since he has the pitting edema and the crackles Appears to be chronic diastolic heart failure without exacerbation Daily weights Trend urine output (3) Diabetes mellitus: Qualifiers: Diabetes mellitus complication status: with hyperglycemia Diabetes mellitus termite treater insulin use: with termite treater use Diabetes mellitus type: type 2 Qualified Code(s): E11.65 - Type 2 diabetes mellitus with hyperglycemia; Z79.4 - termite control service representative (current) use of insulin Code(s): E11.9 - Type 2 diabetes mellitus without complications Status: Chronic Assessment and Plan: -Current glucose is 146 -Accu-Cheks AC and HS -sliding scale insulin -Trulicity is non formulary. -Continue to hold metformin at this time. -hypoglycemic protocol. Trend glucose Adjust therapy as indicated A1c in 08.08 Add Jardiance (4) HTN (hypertension): Qualifiers: Hypertension type: secondary to endocrine disorders Qualified Code(s): I15.2 - Hypertension secondary to endocrine disorders Code(s): I10 - Essential (primary) hypertension Status: Chronic Assessment and Plan: Current BP is 132/78 -continue with Coreg -continue with Cardura -continue losartan -continue with isosorbide mononitrate. -continue with amlodipine -Trend BP Adjust therapy as indicated (5) Chronic anticoagulation: Code(s): Z79.01 - termite control service representative (current) use of anticoagulants Status: Chronic Assessment and Plan: Resume Xarelto Appears to be from [place], CAD, stroke, DVT PE (6) COPD (chronic obstructive pulmonary disease): Qualifiers: COPD type: unspecified COPD Qualified Code(s): J44.9 - Chronic obstructive pulmonary disease, unspecified Code(s): J44.9 - Chronic obstructive pulmonary disease, unspecified Status: Chronic Assessment and Plan: -continue with albuterol -continue with Singulair -the patient is not currently having an exacerbation. (7) CVA (cerebral vascular accident): Code(s): I63.9 - Cerebral infarction, unspecified Status: Chronic Assessment and Plan: -the patient has had a past history of having a CVA. -Continue atorvastatin. -he has also been on Xarelto, which will most likely need to be switched to Eliquis (8) Depression: Code(s): F32.9 - Major depressive disorder, single episode, unspecified Status: Chronic Assessment and Plan: Continue with Wellbutrin (9) HLD (hyperlipidemia): Qualifiers: Hyperlipidemia type: unspecified Qualified Code(s): E78.5 - Hyperlipidemia, unspecified Code(s): E78.5 - Hyperlipidemia, unspecified Status: Chronic Assessment and Plan: -continue with atorvastatin, change to Crestor if lipid panel indicates change (10) Obstructive sleep apnea on CPAP: Code(s): G47.33 - Obstructive sleep apnea (adult) (pediatric); Z99.89 - Dependence on other enabling machines and devices Statu
--- NOTE | 2022-01-19 10:58 | PC.NURSE ---
awaiting discharge orders, pt to discharge home today.
[2022-01-19 11:20] LABS: Glucose Point of Care 252 mg/dl (65-105)
[2022-01-19] MEDS: INSULIN ASPART (*BKC) 100 UNITS/ML SUB-Q (11:32)
--- NOTE | 2022-01-19 11:40 | WPDNEURCNPN ---
Assessment and Plan Assessment and plan (1) TIA (transient ischemic attack): Code(s): G45.9 - Transient cerebral ischemic attack, unspecified Status: Acute Plan History of right hemispheric stroke as described above documented by the CT scan MRI and CTA patient is already on chronic anticoagulation therapy Xarelto has been resumed treatment will be continued as such in addition echocardiogram can be obtained for any incidental new pathology. Consult date: 01/19/22 HPI: Vini Zambrano is a 61 year old male, right handed, has [facility] emergency room for the complaints of left-sided weakness and generalized feeling of being unwell in addition to the complaint of intermittent left-sided facial and left upper extremity weakness though patient does have ongoing history of previous cerebrovascular accident in 2007. His medications included amlodipine 10 mg daily bupropion 150 mg q.12 hours doxazosin 2 mg daily, metformin 1000 mg twice a day rivaroxaban 2.5 mg b.i.d. in addition to aspirin 81 mg daily and atorvastatin 80 mg at night. He is not allergic to any medication, and past history is consistent with type 2 diabetes mellitus, cerebrovascular accident, on chronic anticoagulation therapy, in addition to coronary artery disease with congestive heart failure and history of DVT and diabetic peripheral neuropathy and also gastric ulcer initial vital signs were stable so as the blood studies except blood sugar of 180, a CT scan of the head documented old infarct in the right frontoparietal area in addition to coronal radiata chest x-ray was with minimal bibasilar atelectasis and head neck CTA documented again old infarcts in right frontoparietal a coronal radiata no aneurysm or significant territorial disease MRI has documented no significant change PMFSH Past Medical History Medical History (Updated 01/19/22 @ 11:47 by Brian Henning MD) Angina at rest BMI greater than 40 CAD (coronary artery disease) Cerebrovascular accident Mild left-sided weakness. Chronic anticoagulation Chronic obstructive pulmonary disease Congestive heart failure Coronary artery disease COVID Deep venous thrombosis Depression Diabetes mellitus with hyperglycemia Diabetic peripheral neuropathy Fracture of fifth toe, right, closed Gastric ulcer Gastroesophageal reflux disease History of CVA (cerebrovascular accident) Hydronephrosis Hyperlipidemia Hypertension Kidney stones Left renal stone Myocardial infarction Obstructive sleep apnea on CPAP Peripheral neuropathy Peripheral vascular disease Pneumonia Psoriasis Seasonal allergies Syncope Transient ischemic attack Type 2 diabetes mellitus UTI (urinary tract infection) Vasovagal syncope Surgical History Surgical History (Updated 01/19/22 @ 08:35 by MICHAEL Pitts) H/O heart artery stent 2 H/O lithotripsy History of cardiac catheterization 2 stents History of cholecystectomy History of heart artery stent X2. History of lithotripsy History of rectal polypectomy History of tonsillectomy Hx of cholecystectomy Hx of tonsillectomy Family History Family History Mother Diabetes mellitus Kidney stones Arthritis Father Acute myocardial infarction Heart disease Kidney stones Hypertension Sibling Coronary artery disease Heart disease Hx of CABG Social History Social History (Updated 01/17/22 @ 18:46 by Jennifer Paredes NP) Social History: The patient lives with his significant other. He does not have any children. The patient continues to smoke at least half a pack a cigarettes a day. He denies any alcohol or illicit drugs Surrogate decision maker: Rena Dodd, friend. Code status: Full code. Smoking packs per day: 0.5 Smoking cigarettes per day: 10.0 Years smoked: 42 Smoking pack-years: 21.00 Smoking status: Current every day smoker Tobacc
--- NOTE | 2022-01-19 12:30 | PC.NURSE ---
discharge paperwork explained, pt awaiting ride home from , IV removed, question and concerns answered. Pt will leave floor via w/c.
--- NOTE | 2022-01-21 09:14 | PCCARD ---
DEFINITY WAS NOT DOCUMENTED AT TIME OF STUDY ON THURSDAY. CARDIOLOGY ELECTRIC MOTORMAN TRIED TO DOCUMENT DEFINITY IN PCS ON THURSDAY AND WAS UNABLE TO BECAUSE PATIENT WAS DISCHARGED. CALLED AND ASKED PHARMANCY TO OPEN THE ORDER UP SO I COULD DOCUMENT AND THEY TOLD ME NO. TRIED TO CALL IVANIA BUT SHE IF OFF FOR THE WEEK. MADE A NOTE IN DEFINITY ORDER. 4 ML OF DEFINITY WAS GIVEN TO KLAUDIA HALEY ON 01/18 AT JAMIE 8:30 IN THE MORNING BY ROSALIO ANDREWS
== END 2022-01-19 12:54 | disposition home or self-care (01) ==
LOC: ANHED 16:49 → ANH3MED 22:01
PROVIDERS: Emergency Medicine; Nurse Practitioner; Admitting Provider Internal Medicine; Emergency Provider Emergency Medicine; PCP Registered Nurse; Visit Provider Internal Medicine
DX: G45.9 Transient cerebral ischemic attack, unspecified (principal); I50.32 Chronic diastolic (congestive) heart failure; E11.65 Type 2 diabetes mellitus with hyperglycemia; E11.42 Type 2 diabetes mellitus with diabetic polyneuropathy; I15.2 Hypertension secondary to endocrine disorders; J44.9 Chronic obstructive pulmonary disease, unspecified; F32.9 Major depressive disorder, single episode, unspecified; F41.9 Anxiety disorder, unspecified; I11.0 Hypertensive heart disease with heart failure; I25.10 Atherosclerotic heart disease of native coronary artery without angina pectoris; Z95.5 Presence of coronary angioplasty implant and graft; Z20.822 Contact with and (suspected) exposure to COVID-19; M19.90 Unspecified osteoarthritis, unspecified site; K21.9 Gastro-esophageal reflux disease without esophagitis; E78.5 Hyperlipidemia, unspecified; I25.2 Old myocardial infarction; R29.700 NIHSS score 0; G47.33 Obstructive sleep apnea (adult) (pediatric); R90.82 White matter disease, unspecified; Z99.89 Dependence on other enabling machines and devices; F17.210 Nicotine dependence, cigarettes, uncomplicated; Z86.73 Personal history of transient ischemic attack (TIA), and cerebral infarction without residual deficits; Z79.4 Long term (current) use of insulin; Z79.85 Long-term (current) use of injectable non-insulin antidiabetic drugs; Z79.84 Long term (current) use of oral hypoglycemic drugs; Z79.01 Long term (current) use of anticoagulants; Z79.51 Long term (current) use of inhaled steroids; Z79.82 Long term (current) use of aspirin; Z79.899 Other long term (current) drug therapy; Z86.718 Personal history of other venous thrombosis and embolism; Z82.49 Family history of ischemic heart disease and other diseases of the circulatory system
CPT/HCPCS: 36415; 70450; 70496; 70498; 70553; 71045; 80053; 80061; 82948; 83605; 83735; 84439; 84443; 84480; 84484; 85025; 85055; 85610; 85730; 87636; 93005; 96374; 97162; 97165; 99285; A9270; A9577; C8929; G0378; J1815; J2060; Q9967

== ENCOUNTER 2022-02-13 17:56 | Emergency (ER) | payer MEDICARE, MEDICAID, SELFPAY ==
--- NOTE | 2022-02-13 18:01 | ED.URI ---
HPI - URI/Sore Throat General Chief Complaint: Upper Respiratory Infection Stated Complaint: cold Time Seen by Provider: 02/13/22 18:13 Source: patient and RN notes reviewed Mode of arrival: ambulatory Limitations: no limitations History of Present Illness HPI Narrative: 61-year-old male with history of she chronic heart failure, diabetes, COPD presents with concern for presents with concern for sore throat, body aches, headache, runny nose that started today. Reports he not had a fever. He has been taking Mucinex without relief. He denies shortness of breath, vomiting, diarrhea. MD elicited complaint: cough and sore throat Related Data Home Medications Medication Instructions Recorded Confirmed amlodipine 10 mg tablet 10 mg PO DAILY 01/24/19 02/13/22 bupropion HCl 150 mg tablet,12 hr 150 mg PO BID 01/24/19 02/13/22 sustained-release (Wellbutrin SR) doxazosin 2 mg tablet (Cardura) 2 mg PO HS 01/24/19 02/13/22 dulaglutide 1.5 mg/0.5 mL 1.5 mg subcut WEEKLY 01/24/19 02/13/22 subcutaneous pen injector (Trulicity) metformin 1,000 mg tablet 1,000 mg PO BID 01/24/19 02/13/22 rivaroxaban 2.5 mg tablet (Xarelto) 2.5 mg PO BID 01/24/19 02/13/22 omeprazole 40 mg capsule,delayed 40 mg PO DAILY 04/13/19 02/13/22 release carvedilol 25 mg tablet (Coreg) 25 mg PO BID 04/28/19 02/13/22 atorvastatin 40 mg tablet 80 mg PO HS 05/16/19 02/13/22 albuterol sulfate 90 mcg/actuation 2 puff inhalation Q4-6H PRN 01/09/20 02/13/22 aerosol inhaler (Ventolin HFA) Shortness Of Breath isosorbide mononitrate 60 mg 120 mg PO DAILY 01/09/20 02/13/22 tablet,extended release 24 hr loratadine 10 mg tablet (Claritin) 10 mg PO DAILY 03/15/20 02/13/22 alprazolam 0.25 mg tablet 0.25 mg PO HS 08/21/21 02/13/22 montelukast 10 mg tablet 1 tablet PO HS 08/21/21 02/13/22 aspirin 81 mg chewable tablet 81 mg PO DAILY 09/29/21 02/13/22 (Children's Aspirin) losartan 100 mg tablet 100 mg PO DAILY 01/17/22 02/13/22 Allergies Allergy/AdvReac Type Severity Reaction Status Date / Time No Known Allergies Allergy Unknown Verified 02/13/22 18:03 Review of Systems Review of Systems: CONSTITUTIONAL: Reports malaise. Denies chills, sweats, or fever. EYES: Denies visual changes, redness, or discharge. ENT: Reports rhinorrhea, congestion, sore throat. Sinus pain, otalgia CARDIOVASCULAR: Denies chest pain, palpitations, or edema. RESPIRATORY: Reports cough. Denies dyspnea. GASTROINTESTINAL: Denies abdominal pain, nausea, vomiting, diarrhea SKIN: Denies rash or itching. MUSCULOSKELETAL: Reports myalgia. NEUROLOGIC: Reports headache. All systems reviewed & are unremarkable except as noted in HPI and below PMFSH Past Medical History Medical History (Updated 02/13/22 @ 18:24 by Natalie Ahuja NP) Angina at rest BMI greater than 40 CAD (coronary artery disease) Cerebrovascular accident Mild left-sided weakness. Chronic anticoagulation Chronic obstructive pulmonary disease Congestive heart failure Coronary artery disease COVID Deep venous thrombosis Depression Diabetes mellitus with hyperglycemia Diabetic peripheral neuropathy Fracture of fifth toe, right, closed Gastric ulcer Gastroesophageal reflux disease History of CVA (cerebrovascular accident) Hydronephrosis Hyperlipidemia Hypertension Kidney stones Left renal stone Myocardial infarction Obstructive sleep apnea on CPAP Peripheral neuropathy Peripheral vascular disease Pneumonia Psoriasis Seasonal allergies Syncope Transient ischemic attack Type 2 diabetes mellitus UTI (urinary tract infection) Vasovagal syncope Surgical History Surgical History (Updated 01/19/22 @ 08:35 by KRISTY PittsN-C) H/O heart artery stent 2 H/O lithotripsy History of cardiac catheterization 2 stents History of cholecystectomy History of heart artery stent X2. History of lithotripsy History of rectal polypectomy History of tonsillectomy Hx of cholecystectomy Hx of tonsillectomy Family
[2022-02-13 18:13] VITALS: BP 130/68; PULSE 77; RESP 16; TEMP 36; O2SAT 98
== END 2022-02-13 18:32 | disposition home or self-care (01) ==
PROVIDERS: Emergency Provider Nurse Practitioner
DX: J10.1 Influenza due to other identified influenza virus with other respiratory manifestations (principal); Z20.822 Contact with and (suspected) exposure to COVID-19; F17.210 Nicotine dependence, cigarettes, uncomplicated; I25.110 Atherosclerotic heart disease of native coronary artery with unstable angina pectoris; I69.354 Hemiplegia and hemiparesis following cerebral infarction affecting left non-dominant side; J44.9 Chronic obstructive pulmonary disease, unspecified; Z79.01 Long term (current) use of anticoagulants; I11.0 Hypertensive heart disease with heart failure; I50.9 Heart failure, unspecified; Z86.718 Personal history of other venous thrombosis and embolism; E11.42 Type 2 diabetes mellitus with diabetic polyneuropathy; K21.9 Gastro-esophageal reflux disease without esophagitis; E78.5 Hyperlipidemia, unspecified; I25.2 Old myocardial infarction; I73.9 Peripheral vascular disease, unspecified; Z95.5 Presence of coronary angioplasty implant and graft
CPT/HCPCS: 87426; 87804; 99213; C9803; G0463

== ENCOUNTER 2022-03-05 08:19 | Outpatient (CLI) | payer MEDICARE, MEDICAID, SELFPAY ==
--- NOTE | ~2022-03-05 | MR_ITS ---
MRI of the left knee Clinical history: Pain Technique: Coronal proton density and proton density-weighted images, sagittal proton-density and T2 fat-sat images, and axial proton-density fat-saturated images were acquired. Findings: Anterior and posterior cruciate ligaments are intact. Medial collateral ligament and the la teral collateral ligament complex are intact. Popliteus tendon is intact. Medial and lateral menisci are intact, without evidence of tear. There is intrasubstance degenerative signal in the medial meniscus. There is focal grade 4 chondral lesion at the patellar apex. Articular cartilage otherwise is well pr eserved throughout the knee. Bone marrow signals are unremarkable. Extensor mechanism is intact. No joint effusion. Small Albright cyst present. There is mild diffuse subc utaneous soft tissue edema about the knee. Impression: No ligamentous injury or meniscal tear. Focal grade 4 chondral lesion at the patellar apex. Mild diffuse subcutaneous soft tissue edema. Small Albright's cyst. Reviewed, dictated and finalized at [facility]. ERENCE SERVICE COORDINATOR Impression: No ligamentous injury or meniscal tear. Focal grade 4 chondral lesion at the patellar apex. Mild diffuse subcutaneous soft tissue edema. Small Albright's cyst.
== END 2022-03-05 08:20 | disposition home or self-care (01) ==
PROVIDERS: PCP Registered Nurse; Visit Provider Registered Nurse
DX: M25.562 Pain in left knee (principal); M71.22 Synovial cyst of popliteal space [Baker], left knee
CPT/HCPCS: 73721

== ENCOUNTER 2022-03-21 09:47 | Outpatient (CLI) | payer MEDICARE, MEDICAID, SELFPAY ==
--- NOTE | ~2022-03-21 | XR_ITS ---
Supine and upright views of the abdomen Clinical history: Kidney stone COMPARISON: 03/21/2021 Findings: Bowel gas pattern is nonspecific. Cholecystectomy clips noted. No evidence for obstruction or free air. No abnormal mass lesion or calcification is seen. Osseous structures are intact. Impression: No definite renal stone identified. Reviewed, dictated and finalized at [facility]. STANT [employer] CENTER MANAGER Impression: No definite renal stone identified.
== END 2022-03-21 09:48 | disposition home or self-care (01) ==
PROVIDERS: PCP Registered Nurse; Visit Provider Nurse Practitioner Adult Health
DX: N20.0 Calculus of kidney (principal)
CPT/HCPCS: 74018

== ENCOUNTER 2022-05-04 14:21 | Observation (INO) | payer MEDICARE, MEDICAID, SELFPAY ==
[2022-05-04] VITALS (13 sets, daily range): BP systolic 96–114; BP diastolic 53–86; PULSE 66–85; RESP 11–23; TEMP 36.2–36.9; O2SAT 95–99; BMI 43.9
--- NOTE | ~2022-05-04 | CT_ITS ---
EXAMINATION: CTA brain carotid DATE: 05/04/2022 15:34 INDICATION: Left-sided facial droop TECHNIQUE: Computed tomographic angiography (CTA) of the head was performed without and with 100 mL O mnipaque-350 intravenous contrast. CTA of the neck was performed with intravenous contrast. The dose- length product was 1198.59 mGy-cm. Maximum intensity projection and volume rendered 3D-reconstruction s were created by the technologist on a separate workstation. Automated exposure control and iterativ e reconstruction technique were employed. COMPARISON: 01/17/2022 FINDINGS: HEAD CTA: There is no acute intraparenchymal hemorrhage. No evidence of mass lesion. No evidence of a cute infarction. An old infarct is again noted in the right frontoparietal aguayo radiata. There is m ild periventricular and subcortical hypodensity probably related to small vessel ischemic disease. Th ere is mild prominence of the sulci and ventricles related to cerebral atrophy. Intracranial calcifie d cerebral atherosclerosis is noted. There are no extra-axial collections. There is no mass effect or midline shift. The orbits and soft tissues are unremarkable. There is mild mucosal thickening of the paranasal sinuses. . There is no significant stenosis of the basilar artery or posterior cerebral arteries. There is no si gnificant stenosis of the intracranial internal carotid arteries or the anterior or middle cerebral a rteries. The anterior communicating artery and posterior communicating arteries are normal. There is no aneurysm. NECK CTA: The thyroid gland is unremarkable. The submandibular and parotid glands are symmetric. Ther e is no lymphadenopathy. There are no masses identified. The airway is unremarkable. There are no oss eous abnormalities. The superior mediastinum is unremarkable. There is 0% stenosis of the proximal right internal carotid artery relative to normal distal artery l umen diameter (NASCET criteria). There is 0% stenosis of the proximal left internal carotid artery re lative to normal distal artery lumen diameter. IMPRESSION: 1. No acute intracranial abnormality. Normal head CTA. 2. 0% stenosis of the proximal right internal carotid artery relative to normal distal artery lumen d iameter (NASCET criteria). 3. 0% stenosis of the proximal left internal carotid artery relative to normal distal artery lumen di ameter. 4. Old right frontoparietal aguayo radiata infarct. Reviewed, dictated and finalized at location F. EX OPERATOR IMPRESSION: 1. No acute intracranial abnormality. Normal head CTA. 2. 0% stenosis of the proximal right internal carotid artery relative to normal distal artery lumen diameter (NASCET criteria). 3. 0% stenosis of the proximal left internal carotid artery relative to normal distal artery lumen diameter. 4. Old right frontoparietal aguayo radiata infarct.
--- NOTE | ~2022-05-04 | XR_ITS ---
EXAMINATION: XR chest 1V portable INDICATION: Left-sided facial droop TECHNIQUE: Portable AP chest at 1446 hours COMPARISON: 01/17/2022 FINDINGS: There are minimal interstitial and airspace opacities of the mid and lower lung zones. More focal airspace opacity is seen in the left costophrenic angle. A small left pleural effusion is sugg ested. There is no pneumothorax. The cardiomediastinal silhouette is stable. IMPRESSION: 1. Interstitial and airspace opacities of the mid and lower lung zones, consistent with atelectasis v ersus pneumonia versus pulmonary edema. 2. Small left pleural effusion with probable left basilar atelectasis. Reviewed, dictated and finalized at location F. EX CLERK IMPRESSION: 1. Interstitial and airspace opacities of the mid and lower lung zones, consist ent with atelectasis versus pneumonia versus pulmonary edema. 2. Small left pleural effusion with probable left basilar atelectasis.
--- NOTE | ~2022-05-04 | CT_ITS ---
EXAMINATION: CT brain wo con INDICATION: Left-sided facial droop COMPARISON: None TECHNIQUE: Standard unenhanced head CT. The dose-length product (DLP) was 681.00 mGy-cm. The mA was a djusted according to patient size. Iterative reconstruction technique was employed. FINDINGS: There is no intracranial hemorrhage, acute infarction, or abnormal mass lesion. Again noted is an old infarct in the right frontoparietal aguayo radiata. The ventricles are normal. There is no abnormal mass effect or midline shift. The davis-white matter differentiation is normal. The basal ci sterns are patent. The orbits are normal. The paranasal sinuses, mastoids and calvarium are normal. IMPRESSION: 1. Area of prior infarction in the right frontoparietal aguayo radiata without acute intracranial abn ormality. Reviewed, dictated and finalized at location F. IC HOUSING MANAGER IMPRESSION: 1. Area of prior infarction in the right frontoparietal aguayo radiata without acute intracranial abnormality.
--- NOTE | ~2022-05-04 | MR_ITS ---
EXAMINATION: MR brain/brain stem wo/w con DATE: 05/05/2022 12:46 INDICATION: Acute cerebrovascular accident. Left hemiparesis. TECHNIQUE: Magnetic resonance imaging (MRI) of the brain and brainstem was performed without and with 20 mL MultiHance intravenous contrast. COMPARISON: Brain MRI 01/18/2022 FINDINGS: There is an old infarct in the right frontoparietal aguayo radiata. There are scattered are as of nonspecific increased T2-weighted signal intensity in the cerebral white matter, which is withi n normal limits for the patient's age. There is no intracranial hemorrhage, acute infarction, or abno rmal intracranial mass lesion. The ventricles are normal in size. There is mild mucosal thickening in the ethmoid sinuses. The orbits are normal. The mastoid air cells are normal. IMPRESSION: 1. Old infarct in the right frontoparietal aguayo radiata. Reviewed, dictated and finalized at location A. [facility] [employer]
--- NOTE | 2022-05-04 14:24 | ECG_ITS ---
Measurements Intervals [place] Rate: 73 P: 28 WV: 169 QRS: 34 QRSD: 154 T: 9 QT: 433 QTc: 477 Interpretive Statements SINUS RHYTHM RIGHT BUNDLE BRANCH BLOCK CONSIDER INFERIOR INFARCT, AGE INDETERMINATE ABNORMAL ECG COMPARED TO ECG 01/17/2022 13:58:59 NO SIGNIFICANT CHANGES Electronically Signed On 05-05-2022 14:24:09 PYROTECHNIC MIXER by Mathew Landon D.O.
--- NOTE | 2022-05-04 14:32 | ED.NEUROSD ---
HPI - Neuro Symptoms/Deficit General Chief Complaint: Suspected CVA Stated Complaint: cva Time Seen by Provider: 05/04/22 14:31 Source: patient and EMS Mode of arrival: EMS Limitations: no limitations History of Present Illness HPI Narrative: Patient 62 years old white male, was driving his car, suddenly felt funny in the head with headache, and increased weakness on the left side of his body. Patient pulled over and let his friend drive the car to the emergency room. Patient reports history of CVA twice in the past last one was 2014. Currently on Xarelto and aspirin. History of hypertension, diabetes, hyperlipidemia, coronary stents, tobacco use. Patient reports normally have weakness on the left side of his body 3 out of 10. Today is 8 out of 10. Related Data Home Medications Medication Instructions Recorded Confirmed amlodipine 10 mg tablet 10 mg PO DAILY 01/24/19 02/13/22 bupropion HCl 150 mg tablet,12 hr 150 mg PO BID 01/24/19 02/13/22 sustained-release (Wellbutrin SR) doxazosin 2 mg tablet (Cardura) 2 mg PO HS 01/24/19 02/13/22 dulaglutide 1.5 mg/0.5 mL 1.5 mg subcut WEEKLY 01/24/19 02/13/22 subcutaneous pen injector (Trulicity) metformin 1,000 mg tablet 1,000 mg PO BID 01/24/19 02/13/22 rivaroxaban 2.5 mg tablet (Xarelto) 2.5 mg PO BID 01/24/19 02/13/22 omeprazole 40 mg capsule,delayed 40 mg PO DAILY 04/13/19 02/13/22 release carvedilol 25 mg tablet (Coreg) 25 mg PO BID 04/28/19 02/13/22 atorvastatin 40 mg tablet 80 mg PO HS 05/16/19 02/13/22 albuterol sulfate 90 mcg/actuation 2 puff inhalation Q4-6H PRN 01/09/20 02/13/22 aerosol inhaler (Ventolin HFA) Shortness Of Breath isosorbide mononitrate 60 mg 120 mg PO DAILY 01/09/20 02/13/22 tablet,extended release 24 hr loratadine 10 mg tablet (Claritin) 10 mg PO DAILY 03/15/20 02/13/22 alprazolam 0.25 mg tablet 0.25 mg PO HS 08/21/21 02/13/22 montelukast 10 mg tablet 1 tablet PO HS 08/21/21 02/13/22 aspirin 81 mg chewable tablet 81 mg PO DAILY 09/29/21 02/13/22 (Children's Aspirin) losartan 100 mg tablet 100 mg PO DAILY 01/17/22 02/13/22 lidocaine 5 % topical patch 1 patch transdermal DAILY PRN Pain 02/13/22 02/13/22 (Lidoderm) Allergies Allergy/AdvReac Type Severity Reaction Status Date / Time No Known Allergies Allergy Unknown Verified 03/17/22 09:14 Review of Systems Review of Systems: All systems reviewed & are unremarkable except as noted in HPI and below PMFSH Past Medical History Medical History Angina at rest BMI greater than 40 CAD (coronary artery disease) Cerebrovascular accident Mild left-sided weakness. Chronic anticoagulation Chronic obstructive pulmonary disease Congestive heart failure Coronary artery disease COVID Deep venous thrombosis Depression Diabetes mellitus with hyperglycemia Diabetic peripheral neuropathy Fracture of fifth toe, right, closed Gastric ulcer Gastroesophageal reflux disease History of CVA (cerebrovascular accident) Hydronephrosis Hyperlipidemia Hypertension Kidney stones Knee pain Left renal stone Myocardial infarction Obstructive sleep apnea on CPAP Peripheral neuropathy Peripheral vascular disease Pneumonia Psoriasis Seasonal allergies Syncope Transient ischemic attack Type 2 diabetes mellitus UTI (urinary tract infection) Vasovagal syncope Surgical History Surgical History H/O heart artery stent 2 H/O lithotripsy History of cardiac catheterization 2 stents History of cholecystectomy History of heart artery stent X2. History of lithotripsy History of rectal polypectomy History of tonsillectomy Hx of cholecystectomy Hx of tonsillectomy Family History Family History Mother Diabetes mellitus Kidney stones Arthritis Father Acute myocardial infarction Heart disease Kidney stones Hypertension Sibling
[2022-05-04 14:34] LABS: Glucose Point of Care 196 mg/dl (65-105)
[2022-05-04 14:48] LABS: Basophils Percent Auto 0.3 % (0.2-1.2); Eosinophils Absolute Auto 0.1 K/mm3 (0-0.3); Eosinophils Percent Auto 1.1 % (0-4.4); Hematocrit 41.7 % (42.0-52.0); Hemoglobin 14.4 g/dL (14.0-18.0); Immature Granulocyte Absolute 0.02 K/mm3 (0.00-0.031); Immature Granulocyte Percent A 0.3 % (0-0.5); Lymphocytes Absolute Auto 1.24 K/mm3 (0.9-3.2); Lymphocytes Percent Auto 16.9 % (18.3-44.2); Mean Corpuscular HGB Conc 34.5 g/dl (32-36); Mean Corpuscular Hemoglobin 30.7 pg (26-34); Mean Corpuscular Volume 88.9 fl (80-100); Mean Platelet Volume 10.8 fl (7.4-10.4); Monocytes Absolute Auto 0.7 K/mm3 (0.1-0.6); Monocytes Percent Auto 9.3 % (2.6-8.5); Neutrophils Absolute Auto 5.3 K/mm3 (1.3-6.7); Neutrophils Percent Auto 72.1 % (45.5-73.1); Platelet Count Result 143 k/mm3 (150-375); Red Blood Count 4.69 M/mm3 (4.6-6.20); Red Cell Distribution Width 13.6 % (11.5-14.5); White Blood Count 7.3 K/mm3 (4.5-10.0)
[2022-05-04 15:00] LABS: Alanine Aminotransferase 39 U/L (6-50); Albumin Level 4.4 g/dL (3.5-5.1); Alkaline Phosphatase 65 U/L (38-126); Anion Gap 10 mmol/L (8-16); Aspartate Amino Transferase 32 U/L (17-59); Blood Urea Nitrogen 16 mg/dL (9-20); Calcium 9.2 mg/dL (8.4-10.2); Carbon Dioxide 22 mmol/L (22-30); Chloride 104 mmol/L (98-107); Estimated CRCL calculation 90 ml/min; Estimated Glomerular Filt Rate > 60; Glucose 190 mg/dL (65-110); Potassium 4.1 mmol/L (3.4-5.0); Sodium 136 mmol/L (137-145)
[2022-05-04 15:01] LABS: INR 1.2; Prothrombin Time 15.1 Seconds (11.1-14.7)
[2022-05-04 15:03] LABS: Partial Thromboplastin Time 32.9 SECONDS (22.3-36.8)
[2022-05-04 15:12] LABS: Troponin I < 0.012 ng/mL (0.000-0.034)
--- NOTE | 2022-05-04 15:30 | PM.IMHP ---
H&P: HPI History of Present Illness Date/Time: 05/04/22 15:30 Chief Complaint: Stroke symptoms. Narrative: This is a 62-year-old male with multiple medical problems including history of stroke, diabetes, coronary artery disease, peripheral vascular disease, congestive heart failure, and several other comorbidities who presented to the emergency department with stroke symptoms. Patient provides the following history. He was in his usual state of health when he got up this morning. This afternoon he and his friend were going out to lunch and while driving he started to feel funny with blurry vision, vertigo, nausea, headache, and weakness throughout the left side of his body. He still had some weakness on exam in the ED today but his other symptoms had resolved by the time of my examination. He has a history of CVA x2 and it is my understanding that he received tPA both times. He has been on aspirin and Xarelto since that time and he states compliance with those medications. Head CT on arrival to the ED showed an area of prior infarction the right frontoparietal coronal radiata without acute intracranial abnormality and subsequent CTA of the head and neck showed 0% stenosis of the internal carotid arteries and normal head CTA. He is being admitted in this setting for brain MRI. Review of Systems Review of Systems: Twelve systems were reviewed and are negative except for as per HPI. [facility] Past Medical History Medical History (Updated 05/04/22 @ 21:56 by Moira Olson PA-C) Angina at rest BMI greater than 40 Cerebrovascular accident Mild left-sided weakness. Chronic anticoagulation Chronic obstructive pulmonary disease Congestive heart failure Coronary artery disease COVID Deep venous thrombosis Depression Diabetic peripheral neuropathy Fracture of fifth toe, right, closed Gastric ulcer Gastroesophageal reflux disease Hydronephrosis Hyperlipidemia Hypertension Kidney stones Myocardial infarction Obstructive sleep apnea on CPAP Peripheral vascular disease Pneumonia Psoriasis Seasonal allergies Transient ischemic attack Type 2 diabetes mellitus Surgical History Surgical History (Updated 05/04/22 @ 21:45 by Moira Olson PA-C) History of cardiac catheterization 2 stents History of cholecystectomy History of heart artery stent X2. History of lithotripsy History of rectal polypectomy History of tonsillectomy Family History Family History Mother Diabetes mellitus Kidney stones Arthritis Father Acute myocardial infarction Heart disease Kidney stones Hypertension Sibling Coronary artery disease Heart disease Hx of CABG Social History Social History (Updated 05/04/22 @ 21:46 by Moira Olson PA-C) Social History: Surrogate decision maker: Rena Dodd, friend. Code status: Full code. Smoking packs per day: 0.5 Smoking cigarettes per day: 10.0 Years smoked: 45 Smoking pack-years: 22.50 Smoking status: Current every day smoker Tobacco type: cigarettes Second hand tobacco smoke exposure: No Alcohol intake: never Substance use: never Substance use type: does not use Lack of Transportation: No Lack of Food: Never True Current Housing: I Have Housing Concerned About Future Housing: No Difficulty Paying Gas/Electric Bills: No Difficulty Paying for Meds: No Currently Unemployed: No Education: High School Diploma/GED Difficulty w/ Childcare or Family Care: No Living arrangements: with roommate(s) Additional living arrangements comments: The patient lives in [place] with a roommate. He has no children. Occupation/Education: other Additional occupation/education comments: Disabled. Spiritual care concerns: No Meds Home Medications and Allergies Home Medications Medication Instructions Recorded Confirmed Type amlodipine 10 mg tablet 10 mg PO DAILY 01/24/
[2022-05-04] MEDS: SODIUM CHLORIDE 0.9% IV 1,000 ML 999 ML IV CONT (15:44)
[2022-05-04] MEDS: ASPIRIN 325 MG TABLET PO (16:23)
--- NOTE | 2022-05-04 17:39 | PC.NURSE ---
This patient, Vini Zambrano, was admitted to [facility] Room 311-01. Patient/family oriented to hospital policies and general routines including ID bracelet, bed and alarms, visiting hours, pain management, procedures, bathroom and other care routines, personal items, smoking policy, room service/diet, and visiting hours. Information on how to activate the Rapid Response Team has been discussed. Patient/Family are encouraged to report perceived risks to care and to ask questions if they do not understand what they are told or what they should do.
[2022-05-04] MEDS: SODIUM CHLORIDE 0.9% IV 1,000 ML 125 ML IV CONT (17:40)
[2022-05-04 20:56] LABS: Glucose Point of Care 196 mg/dl (65-105)
[2022-05-04] MEDS: DOXAZOSIN MESYLATE 2 MG TABLET PO (22:16)
[2022-05-04] MEDS: ALPRAZolam (*CRX) 0.25 MG TABLET PO (22:17)
[2022-05-04] MEDS: RIVAROXABAN 2.5 MG TABLET PO (22:17)
[2022-05-04] MEDS: ATORVASTATIN 40 MG TABLET 80 MG PO (22:17)
[2022-05-05] VITALS (9 sets, daily range): BP systolic 110–157; BP diastolic 60–87; PULSE 59–74; RESP 16–20; TEMP 35.7–36.9; O2SAT 94–97
[2022-05-05 07:30] LABS: Anion Gap 9 mmol/L (8-16); Blood Urea Nitrogen 17 mg/dL (9-20); Calcium 8.8 mg/dL (8.4-10.2); Carbon Dioxide 24 mmol/L (22-30); Chloride 103 mmol/L (98-107); Estimated CRCL calculation 110 ml/min; Estimated Glomerular Filt Rate > 60; Glucose 194 mg/dL (65-110); Magnesium 1.5 mg/dL (1.6-2.3); Potassium 3.7 mmol/L (3.4-5.0); Sodium 136 mmol/L (137-145)
[2022-05-05 07:50] LABS: Glucose Point of Care 185 mg/dl (65-105)
[2022-05-05] MEDS: carvediloL 25 MG TABLET PO ×2 (08:14→20:49)
[2022-05-05] MEDS: ASPIRIN 81 MG CHEWABLE TABLET PO (08:15)
[2022-05-05] MEDS: amLODIPine BESYLATE 5 MG TABLET 10 MG PO (08:16)
[2022-05-05] MEDS: LORATADINE 10 MG TABLET PO (08:16)
[2022-05-05] MEDS: PANTOPRAZOLE 40 MG TABLET PO ×2 (08:16→20:49)
[2022-05-05] MEDS: ISOSORBIDE MONONITRATE 60 MG TAB.ER.24H 120 MG PO (08:16)
[2022-05-05] MEDS: buPROPion HCL SR (12 HR) 150 MG TAB PO ×2 (08:16→16:49)
[2022-05-05] MEDS: RIVAROXABAN 2.5 MG TABLET PO ×2 (08:17→16:49)
[2022-05-05] MEDS: LOSARTAN POTASSIUM 100 MG TABLET PO (08:17)
[2022-05-05] MEDS: ASPIRIN 81 MG CHEWABLE TABLET 324 MG PO (09:20)
[2022-05-05] MEDS: LORazepam (*CRX) 1 MG TABLET PO (11:13)
[2022-05-05 11:39] LABS: Glucose Point of Care 363 mg/dl (65-105)
--- NOTE | 2022-05-05 11:40 | WPDNEURCNPN ---
Assessment and Plan Assessment and plan (1) Type 2 diabetes mellitus: Qualifiers: Diabetes mellitus terminologist insulin use: with terminologist use Diabetes mellitus complication status: with circulatory complication Code(s): E11.9 - Type 2 diabetes mellitus without complications Status: Acute (2) TIA (transient ischemic attack): Code(s): G45.9 - Transient cerebral ischemic attack, unspecified Status: Acute (3) Chronic heart failure with preserved ejection fraction (HFpEF): Code(s): I50.32 - Chronic diastolic (congestive) heart failure Status: Acute (4) Chronic anticoagulation: Code(s): Z79.01 - correction (current) use of anticoagulants Status: Chronic (5) TIA (transient ischemic attack): Code(s): G45.9 - Transient cerebral ischemic attack, unspecified Status: Resolved (6) CVA (cerebral vascular accident): Code(s): I63.9 - Cerebral infarction, unspecified Status: Chronic Plan 1 CT scan documented the right-sided vascular stroke in the middle cerebral artery 2 negative CTA except the documentation of the same stroke 3 clinically left hemiparetic with diabetic neuropathy resulting in the orthostatic dizziness and imbalance 4 ongoing obstructive sleep apnea for which he is on CPAP 5 underlying congestive heart failure. Await the MRI document any other new stroke before making any changes Consult date: 05/05/22 HPI: Vini Zambrano is a 62 year old male admitted to the hospital through the emergency room for the possibility of stroke patient was brought to the ER by the EMS with the informations while he was driving his car he suddenly felt funny in the head became weak on the left side of the body managed to rod puller the car and then his friend drove him to the emergency room patient has a history of stroke in the past at least x2 and has been taking aspirin and Xarelto in addition has history of 1. Hypertension 2. Diabetes mellitus 3. Hyperlipidemia 4. Coronary stenting 5. Tobacco use he is taking multiple medications which particularly includes Wellbutrin 150 mg twice a day amlodipine 10 mg daily is doxazosin 2 mg at night to [facility] 1.5 mg subcu weekly with metformin 1000 mg twice a day rivaroxaban 2.5 twice a day carvedilol 25 mg twice atorvastatin 80 mg at night and alprazolam 0.25 mg at night in addition aspirin also 81 mg daily [facility] Past Medical History Medical History Angina at rest BMI greater than 40 Cerebrovascular accident Mild left-sided weakness. Chronic anticoagulation Chronic obstructive pulmonary disease Congestive heart failure Coronary artery disease COVID Deep venous thrombosis Depression Diabetic peripheral neuropathy Fracture of fifth toe, right, closed Gastric ulcer Gastroesophageal reflux disease Hydronephrosis Hyperlipidemia Hypertension Kidney stones Myocardial infarction Obstructive sleep apnea on CPAP Peripheral vascular disease Pneumonia Psoriasis Seasonal allergies Transient ischemic attack Type 2 diabetes mellitus Surgical History Surgical History History of cardiac catheterization 2 stents History of cholecystectomy History of heart artery stent X2. History of lithotripsy History of rectal polypectomy History of tonsillectomy Family History Family History Mother Diabetes mellitus Kidney stones Arthritis Father Acute myocardial infarction Heart disease Kidney stones Hypertension Sibling Coronary artery disease Heart disease Hx of CABG Social History Social History Social History: Surrogate decision maker: Rena Dodd, friend. Code status: Full code. Smoking packs per day: 0.5 Smoking cigarettes per day: 10.0 Years smoked: 45 Smoking pack-years: 22.50 Smoking
[2022-05-05] MEDS: INSULIN ASPART (*BKC) 100 UNITS/ML SUB-Q ×2 (11:51→16:50)
[2022-05-05 16:28] LABS: Glucose Point of Care 206 mg/dl (65-105)
--- NOTE | 2022-05-05 16:41 | PM.IMPN ---
Progress Note: A&P Assessment and Plan (1) Left-sided weakness: Code(s): R53.1 - Weakness Status: Acute (2) Obstructive sleep apnea on CPAP: Code(s): G47.33 - Obstructive sleep apnea (adult) (pediatric); Z99.89 - Dependence on other enabling machines and devices Status: Acute (3) Chronic heart failure with preserved ejection fraction (HFpEF): Code(s): I50.32 - Chronic diastolic (congestive) heart failure Status: Acute (4) Type 2 diabetes mellitus: Qualifiers: Diabetes mellitus fpc insulin use: with vermin exterminator use Diabetes mellitus complication status: with circulatory complication Code(s): E11.9 - Type 2 diabetes mellitus without complications Status: Acute Plan The patient presented to the emergency department for evaluation of left-sided weakness. His left-sided weakness seems to have improved though is still evident on exam, more so than his baseline. head/neck CTA does not show any acute findings. brain MRI reveals old infarct in the right frontoparietal aguayo radiata with no evidence of acute infarct. Appreciate Neurology consultation given left-sided weakness and facial drooping. Continue with frequent neuro checks. check lipid panel. Consider echocardiogram. last echocardiogram 4 months ago was unremarkable with normal EF, grade 1 diastolic dysfunction, no significant valvular disease. begin PT/OT. Monitor blood pressure trends. BP reviewed and is stable. Continue home Xarelto pending Neurology recommendations. patient appears clinically compensated although mild pulmonary edema is noted on CXR. Patient is asymptomatic and has no oxygen requirement. Blood sugars are slightly elevated above target. Continue Accu-Cheks, moderate dose sliding scale insulin, hypoglycemic protocol. Home metformin on hold. Check A1c. Continue home CPAP Subjective Date/time seen: 05/05/22 16:41 Interval history: date of service: 05/05/2022 Vini Zambrano is a 62-year-old male with a history of CVA maintained on chronic anticoagulation, COPD, CHF, CAD, hypertension, TAMIR on CPAP, type 2 diabetes mellitus, and several other medical problems who is seen in follow-up for left-sided hemiparesis. Patient complains of left mouth drooping, left facial numbness. yesterday he had numbness in his arms and legs, however he feels that this is improved. He does endorse chronic left weakness due to his prior strokes. He endorses mild visual disturbances, stating when he was looking at the floor earlier he felt like it was shifting. He was able to get up and walk with assistance but felt very dizzy and lightheaded. He had a headache after getting up and walking around but this passed after he sat down. He feels unsteady. He denies dysphagia. Denies slurred speech. States that his symptoms feel similar to when he had his prior strokes. He denies shortness of breath, cough, or chest pain. Review of Systems Review of Systems: All systems reviewed & are unremarkable except as noted in HPI and below Exam Narrative: General: Obese, chronically ill-appearing 62-year-old male, sitting up in bed, comfortable, NARD Neuro: awake, alert and oriented x4, speech clear, CN II-XII intact, left upper extremity strength 3/5, left lower extremity strength 3/5, right upper and lower extremity strength 4/5, sensation intact, no pronator drift, bilateral field support technician strength equal, able to perform rapid alternating movements, able to perform finger to nose HEENMT: normocephalic, atraumatic, EOMI, sclerae anicteric Respiratory: clear to auscultation bilaterally, nonlabored breathing Cardio: regular rate, regular rhythm with S1-S2 Abdomen: obese abdomen, normoactive bowel sounds, soft, nontender to palpation Extremities: no edema, erythema, or tenderness to palpation, DP pulses 2+ bilaterally Skin: no rashes or lesions, warm and dry Psych: appropriate mood and affect, judgment and insight intact
[2022-05-05] MEDS: DOXAZOSIN MESYLATE 2 MG TABLET PO (20:49)
[2022-05-05] MEDS: ALPRAZolam (*CRX) 0.25 MG TABLET PO (20:49)
[2022-05-05] MEDS: ATORVASTATIN 40 MG TABLET 80 MG PO (20:49)
[2022-05-05] MEDS: ACETAMINOPHEN 325 MG TABLET 650 MG PO (21:21)
[2022-05-06] VITALS (16 sets, daily range): BP systolic 108–140; BP diastolic 62–83; PULSE 59–93; RESP 18–27; TEMP 35.8–36.3; O2SAT 96–100
[2022-05-06 06:10] LABS: Hemoglobin 13.3 g/dL (14.0-18.0); Immature Platelet Fraction Pct 8.5 % (0.9-11.2); Mean Corpuscular HGB Conc 34.1 g/dl (32-36); Mean Corpuscular Hemoglobin 30.4 pg (26-34); Mean Platelet Volume 11.3 fl (7.4-10.4); Platelet Count Result 117 k/mm3 (150-375); Red Blood Count 4.38 M/mm3 (4.6-6.20); Red Cell Distribution Width 13.2 % (11.5-14.5); White Blood Count 6.4 K/mm3 (4.5-10.0)
[2022-05-06 06:11] LABS: Anion Gap 6 mmol/L (8-16); Blood Urea Nitrogen 13 mg/dL (9-20); Calcium 8.7 mg/dL (8.4-10.2); Carbon Dioxide 28 mmol/L (22-30); Chloride 101 mmol/L (98-107); Cholesterol 109 mg/dL (0-200); Estimated CRCL calculation 110 ml/min; Estimated Glomerular Filt Rate > 60; Glucose 182 mg/dL (65-110); HDL Direct 26 mg/dL; Potassium 3.9 mmol/L (3.4-5.0); Sodium 135 mmol/L (137-145); Triglycerides 256 mg/dL (<150)
[2022-05-06 06:22] LABS: LDL Cholesterol Direct 50 mg/dL
[2022-05-06 07:35] LABS: Hemoglobin A1C 7.6 % (<5.7)
[2022-05-06 07:52] LABS: Glucose Point of Care 196 mg/dl (65-105)
[2022-05-06] MEDS: LOSARTAN POTASSIUM 100 MG TABLET PO (08:12)
[2022-05-06] MEDS: ISOSORBIDE MONONITRATE 60 MG TAB.ER.24H 120 MG PO (08:12)
[2022-05-06] MEDS: buPROPion HCL SR (12 HR) 150 MG TAB PO ×2 (08:12→16:53)
[2022-05-06] MEDS: PANTOPRAZOLE 40 MG TABLET PO ×2 (08:13→20:36)
[2022-05-06] MEDS: RIVAROXABAN 2.5 MG TABLET PO ×2 (08:13→16:54)
[2022-05-06] MEDS: carvediloL 25 MG TABLET PO ×2 (08:13→20:34)
[2022-05-06] MEDS: amLODIPine BESYLATE 5 MG TABLET 10 MG PO (08:13)
[2022-05-06] MEDS: ASPIRIN 81 MG CHEWABLE TABLET 324 MG PO (08:14)
[2022-05-06] MEDS: ASPIRIN 81 MG CHEWABLE TABLET PO (08:14)
[2022-05-06] MEDS: LORATADINE 10 MG TABLET PO (08:15)
[2022-05-06 11:46] LABS: Glucose Point of Care 409 mg/dl (65-105)
--- NOTE | 2022-05-06 12:02 | WPDNEUROPN ---
Subjective Date/time seen: 05/06/22 12:02 Interval history: MRI of the brain documented right frontoparietal coronal radiata stroke, with CTA documenting the same thing, will obtain the surface echocardiogram make sure there is no additional incident embolic source Objective Data Vital Signs Vital Signs: Vital Signs - 24 hr 05/05/22 16:00 05/05/22 16:00 05/05/22 20:30 Temperature 35.7 C L 35.7 C L Pulse Rate 68 64 72 Respiratory Rate 16 18 Blood Pressure 125/70 148/84 H Pulse Oximetry 97 97 Oxygen Delivery 05/05/22 20:00 05/05/22 22:37 05/06/22 00:45 Temperature 35.9 C L Pulse Rate 72 74 71 Respiratory Rate 18 17 18 Blood Pressure 116/62 Pulse Oximetry 97 97 96 Oxygen Delivery CPAP CPAP 05/06/22 02:30 05/06/22 00:00 05/06/22 04:00 Temperature Pulse Rate 82 63 59 L Respiratory Rate 22 H Blood Pressure Pulse Oximetry 96 Oxygen Delivery CPAP 05/06/22 04:55 05/06/22 08:13 05/06/22 08:00 Temperature 36.3 C L Pulse Rate 93 67 67 Respiratory Rate 21 H 18 Blood Pressure 113/83 140/80 Pulse Oximetry 100 100 Oxygen Delivery 05/06/22 08:00 05/06/22 11:48 Temperature 35.8 C L Pulse Rate 67 70 Respiratory Rate 18 Blood Pressure 108/66 Pulse Oximetry 99 Oxygen Delivery Intake/Output Intake/Output: Intake & Output 05/03/22 05/04/22 05/05/22 05/06/22 23:59 23:59 23:59 23:59 Intake Total 840 1940 1320 Output Total 1320 1575 Balance 840 620 -255 Meds/Results Medications: Active Medications Generic Name Dose Route Start Last Admin Trade Name Freq PRN Reason Stop Dose Admin Acetaminophen 650 mg 05/05/22 20:46 05/05/22 21:21 Acetaminophen 325 Mg Tablet PO 650 mg Q6H PRN Administration Mild Pain (1-3) or Fever Albuterol 2 puff 05/04/22 20:48 Albuterol Sulfate (*Sp) Aerosol 1 Puff INHALATION Q4-6H PRN Shortness Of Breath Alprazolam 0.25 mg 05/04/22 21:00 05/05/22 20:49 Alprazolam (*Crx) 0.25 Mg Tablet PO 0.25 mg HS BUZZ Administration Amlodipine Besylate 10 mg 05/05/22 09:00 05/06/22 08:13 Amlodipine Besylate 5 Mg Tablet PO 10 mg DAILY BUZZ Administration Aspirin 81 mg 05/05/22 09:00 05/06/22 08:14 Aspirin 81 Mg Chewable Tablet PO 81 mg DAILY BUZZ Administration Atorvastatin Calcium 80 mg 05/04/22 21:00 05/05/22 20:49 Atorvastatin 40 Mg Tablet PO 80 mg HS BUZZ Administration Bupropion HCl 150 mg 05/05/22 09:00 05/06/22 08:12 Bupropion Hcl Sr (12 Hr) 150 Mg Tab PO 150 mg BID BUZZ Administration Carvedilol 25 mg 05/05/22 09:00 05/06/22 08:13 Carvedilol 25 Mg Tablet PO 25 mg Q12HR BUZZ Administration Dextrose 12.5 gm 05/04/22 21:59 Dextrose 50% 25 Gm/50 Ml Syringe IV PUSH PRN PRN Hypoglycemia Protocol Doxazosin Mesylate 2 mg 05/04/22 21:00 05/05/22 20:49 Doxazosin Mesylate 2 Mg Tablet PO 2 mg HS BUZZ Administration Glucagon 1 mg 05/04/22 21:59 Glucagon For Inj 1 Mg Vial IM PRN PRN Hypoglycemia Protocol Glucose 15 gm 05/04/22 21:59 Glucose Oral Gel 15 Gm Of Glucse In 37.5 Gm Tube PO PRN PRN Hypoglycemia Protocol Dextrose 1,000 mls @ 100 mls/hr 05/04/22 21:59 Dextrose 5% 1,000 Ml IVPB PRN PRN Hypoglycemia Protocol Isosorbide Mononitrate 120 mg 05/05/22 09:00 05/06/22 08:12 Isosorbide Mononitrate 60 Mg Tab.Er.24h PO 120 mg DAILY BUZZ Administration Loratadine 10 mg 05/05/22 09:00 05/06/22 08:15 Loratadine 10 Mg Tablet PO 10 mg DAILY BUZZ Administration Losartan Potassium 100 mg 05/05/22 09:00 05/06/22 08:12 Losartan Potassium 100 Mg Tablet PO 100 mg DAILY BUZZ Administration Pantoprazole Sodium 40 mg 05/05/22 09:00 05/06/22 08:13 Pantoprazole 40 Mg Tablet PO 40 mg Q12HR BUZZ Administration Rivaroxaban 2.5 mg 05/04/22 20:50 05/06/22 08:13 Rivaroxaban 2.5 Mg Tablet PO 2.5 mg BID BUZZ Administration
[2022-05-06] MEDS: INSULIN ASPART (*BKC) 100 UNITS/ML 12 UNITS SUB-Q (12:25)
[2022-05-06] MEDS: ACETAMINOPHEN 325 MG TABLET 650 MG PO (12:56)
--- NOTE | 2022-05-06 14:09 | PM.IMPN ---
Progress Note: A&P Assessment and Plan (1) Left-sided weakness: Code(s): R53.1 - Weakness Status: Acute Assessment and Plan: The patient presented to the emergency department for evaluation of left-sided weakness. Head/neck CTA does not show any acute findings Brain MRI reveals old infarct in the right frontoparietal aguayo radiata with no evidence of acute infarct. Appreciate Neurology consultation Lipid panel reviewed with elevated triglycerides and low HDL. Continue high intensity statin Continue aspirin Echocardiogram with bubble study pending Monitor on telemetry (2) History of CVA (cerebrovascular accident): Code(s): Z86.73 - Personal history of transient ischemic attack (TIA), and cerebral infarction without residual deficits Status: Acute Assessment and Plan: Patient with history of CVA x2 both requiring tPA. old infarcts noted on CTA and MRI Echocardiogram pending to rule out embolic source Continue aspirin and low-dose Xarelto (3) Obstructive sleep apnea on CPAP: Code(s): G47.33 - Obstructive sleep apnea (adult) (pediatric); Z99.89 - Dependence on other enabling machines and devices Status: Acute Assessment and Plan: Continue home CPAP (4) Chronic heart failure with preserved ejection fraction (HFpEF): Code(s): I50.32 - Chronic diastolic (congestive) heart failure Status: Acute Assessment and Plan: Clinically compensated (5) Type 2 diabetes mellitus: Qualifiers: Diabetes mellitus termite technician insulin use: with termite technician use Diabetes mellitus complication status: with circulatory complication Code(s): E11.9 - Type 2 diabetes mellitus without complications Status: Acute Assessment and Plan: A1c is 7.6 Blood sugars poorly controlled today up to 400 Increase to high-dose sliding scale insulin and add NovoLog 5 units scheduled with meals Continue with Accu-Cheks and hypoglycemic protocol Consider addition of Lantus if remaining elevated Home metformin is on hold at this time Patient is on weekly Trulicity which is non formulary Subjective Date/time seen: 05/06/22 14:09 Interval history: date of service: 05/06/2022 Vini Zambrano is a 62-year-old male with a history of CVA maintained on chronic anticoagulation, COPD, CHF, CAD, hypertension, TAMIR on CPAP, type 2 diabetes mellitus, and several other medical problems who is seen in follow-up for left-sided hemiparesis. Patient is feeling well today. He does still endorse some mild left-sided facial drooping, states he feels like his lip is ?swollen.? He denies any speech changes but does admit to some difficulty with word finding. He still feels that his left leg is weak and he is having trouble bearing weight. He has some mild weakness in his left arm as well. He does state today that he feels that the symptoms have been slowly getting worse over the past couple weeks. He has been able to do less and less activity and we did discuss the physical deconditioning may be playing a role. He is eating well. Denies dysphagia. His blood sugars have been running high since he has been here in the hospital. He states he has not been eating anything different but has been drinking much more coffee since he has been sitting around. He denies any visual changes. Denies dizziness or lightheadedness. No shortness breath, cough, or chest pain. Review of Systems Review of Systems: All systems reviewed & are unremarkable except as noted in HPI and below Exam Narrative: General: obese, chronically ill-appearing 62-year-old male, sitting up in bed, comfortable, NARD Neuro: awake, alert and oriented x4, speech clear, CN II-XII intact, no facial droop, left upper extremity strength 3/5, left lower extremity strength 3/5, right upper and lower extremity strength 4/5, sensation intact, no pronator drift, bilateral game programmer strength equal, HEENMT:
[2022-05-06 14:38] LABS: Glucose Point of Care 285 mg/dl (65-105)
[2022-05-06] MEDS: INSULIN ASPART (*BKC) 100 UNITS/ML SUB-Q (15:00)
[2022-05-06 16:27] LABS: Glucose Point of Care 197 mg/dl (65-105)
[2022-05-06] MEDS: INSULIN ASPART (*BKC) 100 UNITS/ML 7 UNITS SUB-Q (16:54)
[2022-05-06] MEDS: ATORVASTATIN 40 MG TABLET 80 MG PO (20:35)
[2022-05-06] MEDS: DOXAZOSIN MESYLATE 2 MG TABLET PO (20:36)
[2022-05-06 20:38] LABS: Glucose Point of Care 209 mg/dl (65-105)
[2022-05-06] MEDS: ALPRAZolam (*CRX) 0.25 MG TABLET PO (20:41)
[2022-05-07] VITALS (7 sets, daily range): BP systolic 111–127; BP diastolic 63–94; PULSE 65–75; RESP 20; TEMP 35.9–36.3; O2SAT 96–98
--- NOTE | 2022-05-07 | ECHO_ITS ---
Patient Info Name: Vini Zambrano Age: 62 years : 1960 Gender: Male Ht: 72 in Wt: 329 lbs BSA: 2.82 m2 HR: 68 bpm Technical Quality: Fair Exam Date: 05/07/2022 10:18 AM Exam Location: [facility] Pulmonary Exam Room: [facility] Patient Status: Inpatient Admit Date: 05/04/2022 Staff Ordering Physician: Gloria Carroll PA-C Barrel Maker: Michelle Stevenson RDCS Attending Provider: Gloria Carroll PA-C Referring Physician: Glen OWUSU; Exam Type: CA echo limited w bubble study Study Info Indications - CVA Limited two-dimensional transthoracic echocardiogram is performed with agitated saline. Contrast/Agitated Saline Contrast/Ag. Saline: Agitated Saline Amount: 20.00 ml Existing IV Access: Yes Summary 1. This was a limited study for bubble study only. Bubble study negative. Report Signatures
[2022-05-07 07:43] LABS: Hematocrit 40.3 % (42.0-52.0); Hemoglobin 13.9 g/dL (14.0-18.0); Immature Platelet Fraction Pct 9.5 % (0.9-11.2); Mean Corpuscular HGB Conc 34.5 g/dl (32-36); Mean Corpuscular Hemoglobin 30.6 pg (26-34); Mean Corpuscular Volume 88.8 fl (80-100); Mean Platelet Volume 11.4 fl (7.4-10.4); Platelet Count Result 122 k/mm3 (150-375); Red Blood Count 4.54 M/mm3 (4.6-6.20); Red Cell Distribution Width 13.4 % (11.5-14.5); White Blood Count 5.2 K/mm3 (4.5-10.0)
[2022-05-07 07:50] LABS: Glucose Point of Care 185 mg/dl (65-105)
[2022-05-07 07:55] LABS: Anion Gap 6 mmol/L (8-16); Blood Urea Nitrogen 13 mg/dL (9-20); Calcium 8.8 mg/dL (8.4-10.2); Carbon Dioxide 27 mmol/L (22-30); Chloride 98 mmol/L (98-107); Estimated CRCL calculation 111 ml/min; Estimated Glomerular Filt Rate > 60; Glucose 186 mg/dL (65-110); Potassium 4.2 mmol/L (3.4-5.0); Sodium 131 mmol/L (137-145)
[2022-05-07] MEDS: amLODIPine BESYLATE 5 MG TABLET 10 MG PO (08:38)
[2022-05-07] MEDS: ISOSORBIDE MONONITRATE 60 MG TAB.ER.24H 120 MG PO (08:38)
[2022-05-07] MEDS: PANTOPRAZOLE 40 MG TABLET PO (08:38)
[2022-05-07] MEDS: LOSARTAN POTASSIUM 100 MG TABLET PO (08:38)
[2022-05-07] MEDS: RIVAROXABAN 2.5 MG TABLET PO (08:38)
[2022-05-07] MEDS: buPROPion HCL SR (12 HR) 150 MG TAB PO (08:38)
[2022-05-07] MEDS: ASPIRIN 81 MG CHEWABLE TABLET PO (08:38)
[2022-05-07] MEDS: LORATADINE 10 MG TABLET PO (08:38)
[2022-05-07] MEDS: carvediloL 25 MG TABLET PO (08:39)
[2022-05-07] MEDS: INSULIN ASPART (*BKC) 100 UNITS/ML 7 UNITS SUB-Q ×2 (08:41→12:17)
[2022-05-07 11:36] LABS: Glucose Point of Care 272 mg/dl (65-105)
[2022-05-07] MEDS: INSULIN ASPART (*BKC) 100 UNITS/ML SUB-Q (12:17)
--- NOTE | 2022-05-07 12:31 | WPDNEUROPN ---
Subjective Date/time seen: 05/07/22 12:31 Interval history: status post documented abnormal MRI of the brain with right frontoparietal coronal radiata stroke and also abnormal CTA surface echocardiogram is pending patient is receiving aspirin 81 mg daily with atorvastatin 80 mg at night carvedilol 25 mg q.12 and rivaroxaban 2.5 mg twice a day in addition to the diabetic care will wait for the echocardiogram report Objective Data Vital Signs Vital Signs: Vital Signs - 24 hr 05/06/22 14:00 05/06/22 16:00 05/06/22 16:00 Temperature 35.8 C L 35.8 C L Pulse Rate 69 69 69 Respiratory Rate 18 18 Blood Pressure 128/76 128/76 Pulse Oximetry 98 98 Oxygen Delivery 05/06/22 20:34 05/06/22 20:35 05/06/22 21:49 Temperature 36.3 C L 36.3 C L Pulse Rate 70 70 70 Respiratory Rate 20 20 Blood Pressure 130/77 130/77 Pulse Oximetry 98 98 Oxygen Delivery 05/06/22 20:00 05/06/22 23:21 05/07/22 00:43 Temperature 36.2 C L Pulse Rate 68 70 65 Respiratory Rate 27 H 20 Blood Pressure 127/94 H Pulse Oximetry 97 98 Oxygen Delivery CPAP 05/07/22 00:00 05/07/22 04:00 05/07/22 06:00 Temperature 36.3 C L Pulse Rate 66 65 69 Respiratory Rate 20 Blood Pressure 119/81 Pulse Oximetry 98 Oxygen Delivery 05/07/22 08:39 05/07/22 08:00 Temperature Pulse Rate 75 Respiratory Rate Blood Pressure Pulse Oximetry Oxygen Delivery Room Air Intake/Output Intake/Output: Intake & Output 05/04/22 05/05/22 05/06/22 05/07/22 23:59 23:59 23:59 23:59 Intake Total 840 1940 2345 1420 Output Total 1320 1975 1000 Balance 840 620 370 420 Meds/Results Medications: Active Medications Generic Name Dose Route Start Last Admin Trade Name Freq PRN Reason Stop Dose Admin Acetaminophen 650 mg 05/05/22 20:46 05/06/22 12:56 Acetaminophen 325 Mg Tablet PO 650 mg Q6H PRN Administration Mild Pain (1-3) or Fever Albuterol 2 puff 05/04/22 20:48 Albuterol Sulfate (*Sp) Aerosol 1 Puff INHALATION Q4-6H PRN Shortness Of Breath Alprazolam 0.25 mg 05/04/22 21:00 05/06/22 20:41 Alprazolam (*Crx) 0.25 Mg Tablet PO 0.25 mg HS BUZZ Administration Amlodipine Besylate 10 mg 05/05/22 09:00 05/07/22 08:38 Amlodipine Besylate 5 Mg Tablet PO 10 mg DAILY BUZZ Administration Aspirin 81 mg 05/05/22 09:00 05/07/22 08:38 Aspirin 81 Mg Chewable Tablet PO 81 mg DAILY BUZZ Administration Atorvastatin Calcium 80 mg 05/04/22 21:00 05/06/22 20:35 Atorvastatin 40 Mg Tablet PO 80 mg HS BUZZ Administration Bupropion HCl 150 mg 05/05/22 09:00 05/07/22 08:38 Bupropion Hcl Sr (12 Hr) 150 Mg Tab PO 150 mg BID BUZZ Administration Carvedilol 25 mg 05/05/22 09:00 05/07/22 08:39 Carvedilol 25 Mg Tablet PO 25 mg Q12HR BUZZ Administration Dextrose 12.5 gm 05/04/22 21:59 Dextrose 50% 25 Gm/50 Ml Syringe IV PUSH PRN PRN Hypoglycemia Protocol Doxazosin Mesylate 2 mg 05/04/22 21:00 05/06/22 20:36 Doxazosin Mesylate 2 Mg Tablet PO 2 mg HS BUZZ Administration Glucagon 1 mg 05/04/22 21:59 Glucagon For Inj 1 Mg Vial IM PRN PRN Hypoglycemia Protocol Glucose 15 gm 05/04/22 21:59 Glucose Oral Gel 15 Gm Of Glucse In 37.5 Gm Tube PO PRN PRN Hypoglycemia Protocol Dextrose 1,000 mls @ 100 mls/hr 05/04/22 21:59 Dextrose 5% 1,000 Ml IVPB PRN PRN Hypoglycemia Protocol Insulin Aspart 7 units 05/06/22 17:00 05/07/22 12:17 Insulin Aspart (*Bkc) 100 Units/Ml SUB-Q 7 units TIDWM BUZZ Administration Insulin Aspart 4 - 8 units 05/06/22 17:00 05/07/22 12:17 Insulin Aspart (*Bkc) 100 Units/Ml SUB-Q 5 units TIDWM BUZZ Administration Protocol Isosorbide Mononitrate 120 mg 05/05/22 09:00 05/07/22 08:38 Isosorbide Mononitrate 60 Mg Tab.Er.24h PO 120 mg DAILY BUZZ Administration Loratadine 10 mg 05/05/22 09:00 05/07/22 08:38 Lorat
--- NOTE | 2022-05-07 16:05 | PM.DS ---
DS: Admitting Diagnosis Discharge Date 05/07/2022 Admitting Diagnosis left-sided weakness DS: Discharge Diagnosis Discharge Diagnosis (1) Left-sided weakness: Code(s): R53.1 - Weakness Status: Acute Assessment and Plan: The patient presented to the emergency department for evaluation of left-sided weakness. Head/neck CTA did not show any acute findings Brain MRI reveals old infarct in the right frontoparietal aguayo radiata with no evidence of acute infarct. patient seen in consultation by Neurology Lipid panel reviewed with elevated triglycerides and low HDL. Continue high intensity statin Continue aspirin Echocardiogram with bubble study was negative Patient monitored on telemetry with no significant abnormalities per Neurology, symptoms felt to be at least partially related to ataxia secondary to diabetes and patient was encouraged to obtain a Rollator/wheelchair to diminish fall risk (2) History of CVA (cerebrovascular accident): Code(s): Z86.73 - Personal history of transient ischemic attack (TIA), and cerebral infarction without residual deficits Status: Acute Assessment and Plan: Patient with history of CVA x2 both requiring tPA. 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 school teacher insulin use: with penitentiary use Diabetes mellitus complication status: with circulatory complication Code(s): E11.9 - Type 2 diabetes mellitus without complications Status: Acute Assessment and Plan: A1c is 7.6 Blood sugars were variable during admission but did improve with increased insulin continue home metformin and Trulicity DS: Summary Hospital Course Hospital Course: date of admission: 05/04/2022 date of discharge: 05/07/2022 Vini Zambrano is a 62-year-old male with a history of CVA maintained on chronic anticoagulation, COPD, CHF, CAD, hypertension, TAMIR on CPAP, type 2 diabetes mellitus, and several other medical problems who presented to the emergency department on 05/04/2022 with complaints of having an episode of headache, left-sided weakness, and facial numbness while driving his car. on presentation to the emergency department, his stroke scale was 5, vital signs were stable, he was afebrile, CBC and BMP unremarkable, troponin negative, his CT showed areas of prior infarct in the right frontoparietal aguayo radiata without acute intracranial abnormality. he was admitted to the hospitalist service for further evaluation and management was seen in consultation by Neurology. Please see above for further details. Subsequent head/neck CTA and brain MRI negative for any acute findings. Per Neurology, symptoms were felt to be related to ataxia. he has been recommended to use a walker/ Rollator versus wheelchair at all times to prevent falls. The patient is compliant with his aspirin and low-dose Xarelto regimen. Per Neurology, no further medication adjustments were required. He will continue his high-intensity statin. He can follow-up with Neurology as an outpatient should any additional issues arise. Patient did feel weak and opted to proceed with home health to help regain some strength in his lower extremities. Patient feel comfortable with return home where he lives with a roommate can provide assistance to him should any needs arise. Discussed with the patient worrisome signs and symptoms for which to return
[2022-05-07 16:15] LABS: Glucose Point of Care 173 mg/dl (65-105)
== END 2022-05-07 17:00 | disposition home health service (06) ==
LOC: ANHED 15:53 → ANH3MEDSUR 18:06
PROVIDERS: Emergency Medicine; Physician Assistant; Admitting Provider Hospitalist; Emergency Provider Emergency Medicine; PCP Registered Nurse; Visit Provider Physician Assistant
DX: R53.1 Weakness (principal); G47.33 Obstructive sleep apnea (adult) (pediatric); I50.32 Chronic diastolic (congestive) heart failure; R51.9 Headache, unspecified; I11.0 Hypertensive heart disease with heart failure; J44.9 Chronic obstructive pulmonary disease, unspecified; E11.65 Type 2 diabetes mellitus with hyperglycemia; E11.40 Type 2 diabetes mellitus with diabetic neuropathy, unspecified; E11.51 Type 2 diabetes mellitus with diabetic peripheral angiopathy without gangrene; I25.10 Atherosclerotic heart disease of native coronary artery without angina pectoris; Z95.5 Presence of coronary angioplasty implant and graft; Z95.1 Presence of aortocoronary bypass graft; K21.9 Gastro-esophageal reflux disease without esophagitis; Z99.89 Dependence on other enabling machines and devices; R91.8 Other nonspecific abnormal finding of lung field; R94.31 Abnormal electrocardiogram [ECG] [EKG]; R06.02 Shortness of breath; F17.210 Nicotine dependence, cigarettes, uncomplicated; Z86.16 Personal history of COVID-19; Z86.73 Personal history of transient ischemic attack (TIA), and cerebral infarction without residual deficits; Z86.718 Personal history of other venous thrombosis and embolism; Z79.85 Long-term (current) use of injectable non-insulin antidiabetic drugs; Z79.84 Long term (current) use of oral hypoglycemic drugs; Z79.01 Long term (current) use of anticoagulants; Z79.51 Long term (current) use of inhaled steroids; Z79.82 Long term (current) use of aspirin; Z79.899 Other long term (current) drug therapy
CPT/HCPCS: 36415; 70450; 70496; 70498; 70553; 71045; 80048; 80053; 80061; 82948; 83036; 83735; 84484; 85025; 85027; 85055; 85610; 85730; 93005; 93308; 94002; 96361; 96374; 96375; 96376; 99285; A9270; A9577; G0378; J0131; J1815; J7030; Q9967

== ENCOUNTER 2022-05-14 13:29 | Emergency (ER) | payer MEDICARE, MEDICAID, SELFPAY ==
[2022-05-14] VITALS (17 sets, daily range): BP systolic 98–148; BP diastolic 61–82; PULSE 74–90; RESP 16–18; TEMP 36.5–36.6; O2SAT 97–100
[2022-05-14 15:04] LABS: Basophils Percent Auto 0.1 % (0.2-1.2); Eosinophils Absolute Auto 0.1 K/mm3 (0-0.3); Eosinophils Percent Auto 1.6 % (0-4.4); Hematocrit 40.7 % (42.0-52.0); Immature Granulocyte Absolute 0.02 K/mm3 (0.00-0.031); Immature Granulocyte Percent A 0.3 % (0-0.5); Immature Platelet Fraction Pct 8.3 % (0.9-11.2); Lymphocytes Absolute Auto 0.98 K/mm3 (0.9-3.2); Lymphocytes Percent Auto 13.8 % (18.3-44.2); Mean Corpuscular HGB Conc 34.4 g/dl (32-36); Mean Corpuscular Hemoglobin 30.9 pg (26-34); Mean Corpuscular Volume 89.8 fl (80-100); Mean Platelet Volume 11.1 fl (7.4-10.4); Monocytes Absolute Auto 0.6 K/mm3 (0.1-0.6); Monocytes Percent Auto 7.9 % (2.6-8.5); Neutrophils Absolute Auto 5.4 K/mm3 (1.3-6.7); Neutrophils Percent Auto 76.3 % (45.5-73.1); Platelet Count Result 144 k/mm3 (150-375); Red Blood Count 4.53 M/mm3 (4.6-6.20); Red Cell Distribution Width 13.4 % (11.5-14.5); White Blood Count 7.1 K/mm3 (4.5-10.0)
[2022-05-14 15:14] LABS: Alanine Aminotransferase 39 U/L (6-50); Albumin Level 4.4 g/dL (3.5-5.1); Alkaline Phosphatase 65 U/L (38-126); Anion Gap 8 mmol/L (8-16); Aspartate Amino Transferase 30 U/L (17-59); Blood Urea Nitrogen 20 mg/dL (9-20); Calcium 8.9 mg/dL (8.4-10.2); Carbon Dioxide 26 mmol/L (22-30); Chloride 102 mmol/L (98-107); Estimated CRCL calculation 71 ml/min; Estimated Glomerular Filt Rate 51; Glucose 152 mg/dL (65-110); Lipase 140 U/L (23-300); Sodium 136 mmol/L (137-145)
--- NOTE | 2022-05-14 16:42 | ED.NAVMDI ---
HPI - Nausea/Vomiting/Diarrhea General Chief complaint: Nausea/Vomiting/Diarrhea Stated complaint: diarrhea, concern for dehydration, headache Time Seen by Provider: 05/14/22 16:35 History of Present Illness HPI Narrative: 62-year-old male here for evaluation of diarrhea over the past day. Reports 5-10 episodes of loose nonbloody stools after eating dinner yesterday which consisted of a hamburger and mac & cheese. He has not taken any medicine for his diarrhea. He denies any abdominal pain, nausea, vomiting, fevers or chills. Patient has had a negative colonoscopy in the past. No recent antibiotic use, travel, new or suspicious foods. Related Data Home Medications Medication Instructions Recorded Confirmed amlodipine 10 mg tablet 10 mg PO DAILY 01/24/19 05/04/22 bupropion HCl 150 mg tablet,12 hr 150 mg PO BID 01/24/19 05/04/22 sustained-release (Wellbutrin SR) doxazosin 2 mg tablet (Cardura) 2 mg PO HS 01/24/19 05/04/22 dulaglutide 1.5 mg/0.5 mL 1.5 mg subcut WEEKLY 01/24/19 05/04/22 subcutaneous pen injector (Trulicity) metformin 1,000 mg tablet 1,000 mg PO BID 01/24/19 05/04/22 rivaroxaban 2.5 mg tablet (Xarelto) 2.5 mg PO BID 01/24/19 05/04/22 omeprazole 40 mg capsule,delayed 40 mg PO DAILY 04/13/19 05/04/22 release carvedilol 25 mg tablet (Coreg) 25 mg PO BID 04/28/19 05/04/22 atorvastatin 40 mg tablet 80 mg PO HS 05/16/19 05/04/22 albuterol sulfate 90 mcg/actuation 2 puff inhalation Q4-6H PRN 01/09/20 05/04/22 aerosol inhaler (Ventolin HFA) Shortness Of Breath isosorbide mononitrate 60 mg 120 mg PO DAILY 01/09/20 05/04/22 tablet,extended release 24 hr loratadine 10 mg tablet (Claritin) 10 mg PO DAILY 03/15/20 05/04/22 alprazolam 0.25 mg tablet 0.25 mg PO HS 08/21/21 05/04/22 aspirin 81 mg chewable tablet 81 mg PO DAILY 09/29/21 05/04/22 (Children's Aspirin) losartan 100 mg tablet 100 mg PO DAILY 01/17/22 05/04/22 Allergies Allergy/AdvReac Type Severity Reaction Status Date / Time No Known Allergies Allergy Unknown Verified 05/14/22 13:57 Review of Systems Review of Systems: Gen.: Denies fevers or chills Eyes: Denies eye pain or visual change ENT: Denies congestion Respiratory: Denies shortness of breath or cough CV: Denies chest pain or palpitations GI: Reports diarrhea denies burning, urgency, frequency or hematuria Musculoskeletal: Denies back pain or muscle pain Neuro: Denies numbness, tingling, weakness or focal weakness Skin: Denies rash Except as documented, all other systems reviewed and negative [facility] Past Medical History Medical History Angina at rest BMI greater than 40 Cerebrovascular accident Mild left-sided weakness. Chronic anticoagulation Chronic obstructive pulmonary disease Congestive heart failure Coronary artery disease COVID Deep venous thrombosis Depression Diabetic peripheral neuropathy Fracture of fifth toe, right, closed Gastric ulcer Gastroesophageal reflux disease Hydronephrosis Hyperlipidemia Hypertension Kidney stones Myocardial infarction Obstructive sleep apnea on CPAP Peripheral vascular disease Pneumonia Psoriasis Seasonal allergies Transient ischemic attack Type 2 diabetes mellitus Surgical History Surgical History History of cardiac catheterization 2 stents History of cholecystectomy History of heart artery stent X2. History of lithotripsy History of rectal polypectomy History of tonsillectomy Family History Family History Mother Diabetes mellitus Kidney stones Arthritis Father Acute myocardial infarction Heart disease Kidney stones Hypertension Sibling Coronary artery disease Heart disease Hx of CABG Social History Social History Social History: Surrogate decision maker: Daria
[2022-05-14] MEDS: DIPHENOXYLATE/ATROPINE (*CRX) 2.5 MG TABLET 1 TABLET PO (17:26)
[2022-05-14] MEDS: LACTATED RINGERS 1,000 ML 999 ML IV CONT (17:27)
[2022-05-14 17:29] LABS: Appearance Urine Cloudy (Clear); Bacteria Urine None Seen /hpf; Bilirubin Urine 2+ (Negative); Blood Urine Negative (Negative); Color Urine Dark Yellow (Yellow); Glucose Urine UA Negative (Negative); Hyaline Casts Urine Present /lpf; Ketones Urine 1+ mg/dL (Negative); Leukocyte Esterase Ur Trace LEU/UL (Negative); Need Manual Microscopic Reviewed; Nitrate Urine Negative (Negative); Non Pathogenic Casts >20; Protein Urine 3+ mg/dL (Negative); RBC Urine 0-2 /hpf (0-2); Specific Grav Ur 1.031 (1.001-1.035); Squamous Epithelial Cell Urine Few /hpf (Few); WBC Urine 0-5 /hpf
[2022-05-14 17:34] LABS: Add Urine Microscopic? YES
[2022-05-14] MEDS: LACTATED RINGERS 1,000 ML 999 ML (18:17)
--- NOTE | 2022-05-14 18:18 | PC.NURSE ---
Patient to receive 500ml bolus order of Lactated Ringer's out of a 1L bag. Overrode from the Pyxis
== END 2022-05-14 20:01 | disposition home or self-care (01) ==
LOC: ANHED 17:07
PROVIDERS: Emergency Medicine; Emergency Provider Physician Assistant; PCP Registered Nurse
DX: R19.7 Diarrhea, unspecified (principal); E78.5 Hyperlipidemia, unspecified; I25.10 Atherosclerotic heart disease of native coronary artery without angina pectoris; I11.0 Hypertensive heart disease with heart failure; I50.9 Heart failure, unspecified; J44.9 Chronic obstructive pulmonary disease, unspecified; E11.9 Type 2 diabetes mellitus without complications; F17.210 Nicotine dependence, cigarettes, uncomplicated; Z86.73 Personal history of transient ischemic attack (TIA), and cerebral infarction without residual deficits
CPT/HCPCS: 36415; 80053; 81001; 83690; 85025; 85055; 96360; 96361; 99283; A9270; J7120

== ENCOUNTER 2022-05-30 08:55 | Emergency (ER) | payer MEDICARE, MEDICAID, SELFPAY ==
--- NOTE | ~2022-05-30 | CT_ITS ---
Non-contrast CT scan of the Abdomen and Pelvis Clinical indication: Right flank pain Technique: 2.5 mm axial scans were obtained through the abdomen and pelvis without intravenous or or al contrast. Dose reduction technique was used on this scan by utilizing automated exposure control a nd iterative reconstruction technique. The dose-length product (DLP) was 1717.58 mGy-cm. COMPARISON: 11/10/2021 Findings: Images through the lung bases reveal probable scarring at the lingula. There is no evidence of renal or ureteral calculi. The kidneys and the ureters are nondilated. The liver, spleen, and pancreas appear normal. Cholecystectomy clips are present. Bilateral adrenal l ipoma/myelolipomas are present, left larger than right, unchanged. There are atherosclerotic calcific ations of the aorta. There is no evidence of bowel obstruction. Images through the pelvis were performed. There is no evidence of ascites or lymphadenopathy. Urinary bladder unremarkable. No pelvic mass evident. Small bilateral fat-containing inguinal hernias are no kirti. Impression: No acute abnormality. Small bilateral fat-containing inguinal hernias. Bilateral adrenal lipomas/myelolipomas, unchanged. Reviewed, dictated and finalized at location . Impression: No acute abnormality. Small bilateral fat-containing inguinal hernias. Bilateral adrenal lipomas/myelolipomas, unchanged.
[2022-05-30 09:04] VITALS: BP 124/100; PULSE 78; RESP 18; TEMP 36.4; O2SAT 98
--- NOTE | 2022-05-30 09:11 | ED.GENADULT ---
HPI - General Adult General Chief complaint: Back Pain/Injury Stated complaint: r flank pain Time Seen by Provider: 05/30/22 09:00 History of Present Illness HPI narrative: 62-year-old male with extensive history of kidney stones diverticulitis, recent CVA, type 2 diabetes, hypertension dyslipidemia presents to the emergency room for evaluation of sudden onset of right flank pain began this morning. Patient also endorses decreased urinary output. Denies fevers. States low back pain is worse with movement. Related Data Home Medications Medication Instructions Recorded Confirmed amlodipine 10 mg tablet 10 mg PO DAILY 01/24/19 05/04/22 bupropion HCl 150 mg tablet,12 hr 150 mg PO BID 01/24/19 05/04/22 sustained-release (Wellbutrin SR) doxazosin 2 mg tablet (Cardura) 2 mg PO HS 01/24/19 05/04/22 dulaglutide 1.5 mg/0.5 mL 1.5 mg subcut WEEKLY 01/24/19 05/04/22 subcutaneous pen injector (Trulicity) metformin 1,000 mg tablet 1,000 mg PO BID 01/24/19 05/04/22 rivaroxaban 2.5 mg tablet (Xarelto) 2.5 mg PO BID 01/24/19 05/04/22 omeprazole 40 mg capsule,delayed 40 mg PO DAILY 04/13/19 05/04/22 release carvedilol 25 mg tablet (Coreg) 25 mg PO BID 04/28/19 05/04/22 atorvastatin 40 mg tablet 80 mg PO HS 05/16/19 05/04/22 albuterol sulfate 90 mcg/actuation 2 puff inhalation Q4-6H PRN 01/09/20 05/04/22 aerosol inhaler (Ventolin HFA) Shortness Of Breath isosorbide mononitrate 60 mg 120 mg PO DAILY 01/09/20 05/04/22 tablet,extended release 24 hr loratadine 10 mg tablet (Claritin) 10 mg PO DAILY 03/15/20 05/04/22 alprazolam 0.25 mg tablet 0.25 mg PO HS 08/21/21 05/04/22 aspirin 81 mg chewable tablet 81 mg PO DAILY 09/29/21 05/04/22 (Children's Aspirin) losartan 100 mg tablet 100 mg PO DAILY 01/17/22 05/04/22 Allergies Allergy/AdvReac Type Severity Reaction Status Date / Time No Known Allergies Allergy Unknown Verified 05/14/22 13:57 Review of Systems Review of Systems: CONSTITUTIONAL: Denies fever, chills, or sweats. EYES: Denies visual changes, redness, or discharge. ENT: Denies rhinorrhea, congestion, sore throat, or otalgia. CARDIOVASCULAR: Denies chest pain, palpitations, or edema. RESPIRATORY: Denies cough or dyspnea. GASTROINTESTINAL: Denies abdominal pain, nausea, vomiting, or diarrhea. Denies flank pain GENITOURINARY: Denies dysuria or hematuria. SKIN: Denies rash or itching. MUSCULOSKELETAL: Denies back pain, joint pain, or myalgia. NEUROLOGIC: Denies headache, numbness, dizziness, or weakness. PSYCHIATRIC: Denies anxiety or depression. [facility] Past Medical History Medical History Angina at rest BMI greater than 40 Cerebrovascular accident Mild left-sided weakness. Chronic anticoagulation Chronic obstructive pulmonary disease Congestive heart failure Coronary artery disease COVID Deep venous thrombosis Depression Diabetic peripheral neuropathy Fracture of fifth toe, right, closed Gastric ulcer Gastroesophageal reflux disease Hydronephrosis Hyperlipidemia Hypertension Kidney stones Myocardial infarction Obstructive sleep apnea on CPAP Peripheral vascular disease Pneumonia Psoriasis Seasonal allergies Transient ischemic attack Type 2 diabetes mellitus Surgical History Surgical History History of cardiac catheterization 2 stents History of cholecystectomy History of heart artery stent X2. History of lithotripsy History of rectal polypectomy History of tonsillectomy Family History Family History Mother Diabetes mellitus Kidney stones Arthritis Father Acute myocardial infarction Heart disease Kidney stones Hypertension Sibling Coronary artery disease Heart disease Hx of CABG Social History Social History Social History: Surrogate decision ma
[2022-05-30] MEDS: SODIUM CHLORIDE 0.9% IV 1,000 ML 999 ML IV CONT (09:26)
[2022-05-30 09:41] LABS: Basophils Percent Auto 0.3 % (0.2-1.2); Eosinophils Absolute Auto 0.2 K/mm3 (0-0.3); Hematocrit 40.2 % (42.0-52.0); Hemoglobin 13.8 g/dL (14.0-18.0); Immature Granulocyte Absolute 0.02 K/mm3 (0.00-0.031); Immature Granulocyte Percent A 0.3 % (0-0.5); Immature Platelet Fraction Pct 6.9 % (0.9-11.2); Lymphocytes Absolute Auto 1.28 K/mm3 (0.9-3.2); Lymphocytes Percent Auto 17.5 % (18.3-44.2); Mean Corpuscular HGB Conc 34.3 g/dl (32-36); Mean Corpuscular Hemoglobin 31.4 pg (26-34); Mean Corpuscular Volume 91.4 fl (80-100); Mean Platelet Volume 10.8 fl (7.4-10.4); Monocytes Absolute Auto 0.7 K/mm3 (0.1-0.6); Monocytes Percent Auto 9.3 % (2.6-8.5); Neutrophils Absolute Auto 5.2 K/mm3 (1.3-6.7); Neutrophils Percent Auto 70.6 % (45.5-73.1); Platelet Count Result 146 k/mm3 (150-375); Red Cell Distribution Width 13.7 % (11.5-14.5); White Blood Count 7.3 K/mm3 (4.5-10.0)
[2022-05-30 09:43] LABS: Appearance Urine Clear (Clear); Bacteria Urine None Seen /hpf; Bilirubin Urine Negative (Negative); Blood Urine Negative (Negative); Color Urine Yellow (Yellow); Glucose Urine UA Negative (Negative); Ketones Urine Negative (Negative); Leukocyte Esterase Ur Negative LEU/UL (Negative); Nitrate Urine Negative (Negative); Non Pathogenic Casts 0-2; Protein Urine 1+ mg/dL (Negative); RBC Urine 0-2 /hpf (0-2); Specific Grav Ur 1.017 (1.001-1.035); Squamous Epithelial Cell Urine None seen /hpf (Few); Urobilinogen Urine 0.2 mg/dL (<2.0); WBC Urine 0-5 /hpf
[2022-05-30 09:44] LABS: Add Urine Microscopic? YES
[2022-05-30 09:50] LABS: Alanine Aminotransferase 47 U/L (6-50); Albumin Level 4.4 g/dL (3.5-5.1); Alkaline Phosphatase 66 U/L (38-126); Anion Gap 9 mmol/L (8-16); Aspartate Amino Transferase 33 U/L (17-59); Bilirubin,Total 0.6 mg/dL (0.2-1.3); Blood Urea Nitrogen 16 mg/dL (9-20); Carbon Dioxide 27 mmol/L (22-30); Chloride 100 mmol/L (98-107); Estimated CRCL calculation 99 ml/min; Estimated Glomerular Filt Rate > 60; Glucose 154 mg/dL (65-110); Potassium 4.7 mmol/L (3.4-5.0); Sodium 136 mmol/L (137-145)
== END 2022-05-30 10:14 | disposition home or self-care (01) ==
PROVIDERS: Emergency Provider Nurse Practitioner Family; PCP Registered Nurse
DX: M54.50 Low back pain, unspecified (principal); J44.9 Chronic obstructive pulmonary disease, unspecified; I11.0 Hypertensive heart disease with heart failure; I50.9 Heart failure, unspecified; E11.9 Type 2 diabetes mellitus without complications; E78.5 Hyperlipidemia, unspecified; I25.2 Old myocardial infarction; F17.210 Nicotine dependence, cigarettes, uncomplicated; Z79.01 Long term (current) use of anticoagulants; Z79.82 Long term (current) use of aspirin
CPT/HCPCS: 36415; 74176; 80053; 81001; 85025; 85055; 96360; 99284; J7030

== ENCOUNTER 2022-08-22 14:07 | Emergency (ER) | payer MEDICARE, MEDICAID, SELFPAY ==
--- NOTE | ~2022-08-22 | CT_ITS ---
EXAMINATION: CT abdomen pelvis wo con DATE: 08/22/2022 15:15 INDICATION: Kidney stones presenting with right flank pain TECHNIQUE: Computed tomography (CT) of the abdomen and pelvis was performed without intravenous contr ast. Automated exposure control and iterative reconstruction technique were employed. The dose-length product was 1492.61 mGy-cm. COMPARISON: 05/30/2022 FINDINGS: Mild bibasilar atelectasis. Heart size is normal. Atherosclerotic coronary artery calcific location. No pericardial or pleural effusion. Diffuse hepatic steatosis. Cholecystectomy clips at the gallbladd er fossa. Spleen and pancreas are normal. Again seen are predominantly macroscopic fat attenuation bi lateral adrenal myelolipoma is measuring 4.9 cm in diameter on the prior left and 3.0 cm on the right . 3 cm right renal cyst. Kidneys and ureters are otherwise normal with no urolithiasis or hydroureter onephrosis. Bowels are normal. Chronic small collection of fluid attenuation along side the retroceca l appendix which can be seen are numerous CT studies dating back to at least 07/01/2016. There is also a small amount of fluid in the right inguinal canal. No free intraperineal gas or fluid. No pathologi jac enlarged abdominal or pelvic lymphadenopathy. There are also couple chronic small bone islands at the proximal femurs as well as a chronic likely benign peripherally sclerotic lesion at the ramona superior left femoral head neck junction. IMPRESSION: 1. No urolithiasis or acute intra-abdominal/pelvic process. 2. Bilateral fat-containing inguinal hernias. Small amount of fluid within the right inguinal canal w hich may communicate with chronic small periappendiceal fluid collection which can be seen dating hari k to 07/01/2016 which is of indeterminate etiology or significance. Reviewed, dictated and finalized at location A. IMPRESSION: 1. No urolithiasis or acute intra-abdominal/pelvic process. 2. Bilateral fat-containing inguinal hernias. Small amount of fluid within the right inguinal canal which may communicate with chronic small periappendiceal f luid collection which can be seen dating back to 07/01/2016 which is of indetermi frederick etiology or significance.
[2022-08-22 14:12] VITALS: BP 154/81; PULSE 90; RESP 20; TEMP 36.4; O2SAT 96
[2022-08-22 14:48] LABS: Appearance Urine Clear (Clear); Bacteria Urine None Seen /hpf; Bilirubin Urine Negative (Negative); Blood Urine 3+ (Negative); Color Urine Yellow (Yellow); Glucose Urine UA Trace mg/dL (Negative); Ketones Urine Negative (Negative); Leukocyte Esterase Ur Trace LEU/UL (Negative); Nitrate Urine Negative (Negative); Non Pathogenic Casts 0-2; Protein Urine 2+ mg/dL (Negative); RBC Urine >100 /hpf (0-2); Specific Grav Ur 1.023 (1.001-1.035); Squamous Epithelial Cell Urine None seen /hpf (Few); Urobilinogen Urine 0.2 mg/dL (<2.0); WBC Urine 0-5 /hpf; pH Urine 5.5 (5.0-9.0)
[2022-08-22 14:53] LABS: Add Urine Microscopic? YES
--- NOTE | 2022-08-22 15:02 | ED.MALEGU ---
HPI - Male Genitourinary General Chief complaint: Urogenital-Male Stated complaint: poss kidney stone Time Seen by Provider: 08/22/22 15:01 Source: patient Mode of arrival: ambulatory Limitations: no limitations History of Present Illness HPI Narrative: 62 years old white male presents with left flank. 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 He denies any fever, chills, nausea, vomiting. History of recurrent kidney stone. Related Data Home Medications Medication Instructions Recorded Confirmed amlodipine 10 mg tablet 10 mg PO DAILY 01/24/19 05/04/22 bupropion HCl 150 mg tablet,12 hr 150 mg PO BID 01/24/19 05/04/22 sustained-release (Wellbutrin SR) doxazosin 2 mg tablet (Cardura) 2 mg PO HS 01/24/19 05/04/22 dulaglutide 1.5 mg/0.5 mL 1.5 mg subcut WEEKLY 01/24/19 05/04/22 subcutaneous pen injector (Trulicity) metformin 1,000 mg tablet 1,000 mg PO BID 01/24/19 05/04/22 rivaroxaban 2.5 mg tablet (Xarelto) 2.5 mg PO BID 01/24/19 05/04/22 omeprazole 40 mg capsule,delayed 40 mg PO DAILY 04/13/19 05/04/22 release carvedilol 25 mg tablet (Coreg) 25 mg PO BID 04/28/19 05/04/22 atorvastatin 40 mg tablet 80 mg PO HS 05/16/19 05/04/22 albuterol sulfate 90 mcg/actuation 2 puff inhalation Q4-6H PRN 01/09/20 05/04/22 aerosol inhaler (Ventolin HFA) Shortness Of Breath isosorbide mononitrate 60 mg 120 mg PO DAILY 01/09/20 05/04/22 tablet,extended release 24 hr loratadine 10 mg tablet (Claritin) 10 mg PO DAILY 03/15/20 05/04/22 alprazolam 0.25 mg tablet 0.25 mg PO HS 08/21/21 05/04/22 aspirin 81 mg chewable tablet 81 mg PO DAILY 09/29/21 05/04/22 (Children's Aspirin) losartan 100 mg tablet 100 mg PO DAILY 01/17/22 05/04/22 Allergies Allergy/AdvReac Type Severity Reaction Status Date / Time No Known Allergies Allergy Unknown Verified 05/14/22 13:57 Review of Systems Review of Systems: All systems reviewed & are unremarkable except as noted in HPI and below PMFSH Past Medical History Medical History Angina at rest BMI greater than 40 Cerebrovascular accident Mild left-sided weakness. Chronic anticoagulation Chronic obstructive pulmonary disease Congestive heart failure Coronary artery disease COVID Deep venous thrombosis Depression Diabetic peripheral neuropathy Fracture of fifth toe, right, closed Gastric ulcer Gastroesophageal reflux disease Hydronephrosis Hyperlipidemia Hypertension Kidney stones Myocardial infarction Obstructive sleep apnea on CPAP Peripheral vascular disease Pneumonia Psoriasis Seasonal allergies Transient ischemic attack Type 2 diabetes mellitus Surgical History Surgical History History of cardiac catheterization 2 stents History of cholecystectomy History of heart artery stent X2. History of lithotripsy History of rectal polypectomy History of tonsillectomy Family History Family History Mother Diabetes mellitus Kidney stones Arthritis Father Acute myocardial infarction Heart disease Kidney stones Hypertension Sibling Coronary artery disease Heart disease Hx of CABG Social History Social History Social History: Surrogate decision maker: Rena Dodd, friend. Code status: Full code. Smoking packs per day: 0.5 Smoking cigarettes per day: 10.0 Years smoked: 45 Smoking pack-years: 22.50 Smoking status: Current every day smoker Tobacco type: cigarettes Second hand tobacco smoke exposure: No Alcohol intake: never Substance use: never Substance use type: does not use Lack of Transportation: No Lack of Food: Never True Current Housing: I Have Housing Concerned About Future Housing: No Difficulty Paying Gas/Electric Bills: No Difficulty Paying for Meds: No Currently Unemployed:
[2022-08-22] MEDS: SODIUM CHLORIDE 0.9% IV 1,000 ML 999 ML IV CONT (15:27)
[2022-08-22 15:45] LABS: Basophils Percent Auto 0.3 % (0.2-1.2); Eosinophils Absolute Auto 0.2 K/mm3 (0-0.3); Eosinophils Percent Auto 2.6 % (0-4.4); Immature Granulocyte Absolute 0.02 K/mm3 (0.00-0.031); Immature Granulocyte Percent A 0.3 % (0-0.5); Immature Platelet Fraction Pct 7.1 % (0.9-11.2); Lymphocytes Absolute Auto 1.17 K/mm3 (0.9-3.2); Lymphocytes Percent Auto 18.2 % (18.3-44.2); Mean Corpuscular HGB Conc 34.1 g/dl (32-36); Mean Corpuscular Hemoglobin 30.4 pg (26-34); Mean Corpuscular Volume 89.1 fl (80-100); Mean Platelet Volume 11.3 fl (7.4-10.4); Monocytes Absolute Auto 0.6 K/mm3 (0.1-0.6); Monocytes Percent Auto 8.7 % (2.6-8.5); Neutrophils Absolute Auto 4.5 K/mm3 (1.3-6.7); Neutrophils Percent Auto 69.9 % (45.5-73.1); Platelet Count Result 142 k/mm3 (150-375); Red Cell Distribution Width 13.1 % (11.5-14.5); White Blood Count 6.4 K/mm3 (4.5-10.0)
[2022-08-22 15:58] LABS: Alanine Aminotransferase 57 U/L (6-50); Albumin Level 4.5 g/dL (3.5-5.1); Alkaline Phosphatase 63 U/L (38-126); Anion Gap 6 mmol/L (8-16); Aspartate Amino Transferase 41 U/L (17-59); Bilirubin,Total 0.4 mg/dL (0.2-1.3); Blood Urea Nitrogen 15 mg/dL (9-20); Calcium 9.1 mg/dL (8.4-10.2); Carbon Dioxide 27 mmol/L (22-30); Chloride 103 mmol/L (98-107); Estimated CRCL calculation 98 ml/min; Estimated Glomerular Filt Rate > 60; Glucose 144 mg/dL (65-110); Potassium 4.2 mmol/L (3.4-5.0); Sodium 136 mmol/L (137-145)
== END 2022-08-22 17:01 | disposition home or self-care (01) ==
PROVIDERS: Preventive Medicine Aerospace Medicine; Emergency Provider Emergency Medicine; PCP Registered Nurse
DX: R10.9 Unspecified abdominal pain (principal); R31.9 Hematuria, unspecified; I69.954 Hemiplegia and hemiparesis following unspecified cerebrovascular disease affecting left non-dominant side; J44.9 Chronic obstructive pulmonary disease, unspecified; I25.10 Atherosclerotic heart disease of native coronary artery without angina pectoris; I11.0 Hypertensive heart disease with heart failure; I50.9 Heart failure, unspecified; E11.42 Type 2 diabetes mellitus with diabetic polyneuropathy; E11.51 Type 2 diabetes mellitus with diabetic peripheral angiopathy without gangrene; I73.9 Peripheral vascular disease, unspecified; I25.2 Old myocardial infarction; E78.5 Hyperlipidemia, unspecified; G47.33 Obstructive sleep apnea (adult) (pediatric); K21.9 Gastro-esophageal reflux disease without esophagitis; F17.210 Nicotine dependence, cigarettes, uncomplicated; Z86.16 Personal history of COVID-19; Z87.01 Personal history of pneumonia (recurrent); Z86.718 Personal history of other venous thrombosis and embolism; Z87.442 Personal history of urinary calculi; Z79.01 Long term (current) use of anticoagulants; Z79.85 Long-term (current) use of injectable non-insulin antidiabetic drugs; Z79.84 Long term (current) use of oral hypoglycemic drugs; Z79.82 Long term (current) use of aspirin; Z95.5 Presence of coronary angioplasty implant and graft; Z90.49 Acquired absence of other specified parts of digestive tract; K40.20 Bilateral inguinal hernia, without obstruction or gangrene, not specified as recurrent
CPT/HCPCS: 36415; 74176; 80053; 81001; 85025; 85055; 96360; 99284; J7030

== ENCOUNTER 2022-09-03 09:32 | Outpatient (CLI) | payer MEDICARE, MEDICAID, SELFPAY ==
--- NOTE | 2022-09-03 11:15 | NEURO_ITS ---
Impression: # Known diabetic complains of increasing numbness of hands. # Bilateral Carpal Tunnel Syndrome, right more than left. # Ulnar neuropathy across the elbow bilaterally. # Underlying neuropathy. # Needle/EMG revealed mildly decreased motor unit potentials generally without fibrillations. Nerve Conduction Studies Anti Sensory Summary Table Stim Site NR Peak (ms) P-T Amp (?V) Site1 Site2 Delta-P (ms) Dist (cm) Omar (m/s) Left Median Anti Sensory (2-3nd Digit) Wrist 6.0 6.5 Wrist 2-3nd Digit 6.0 14.0 23 Wrist 6.5 12.7 Wrist 2-3nd Digit 6.0 14.0 23 Right Median Anti Sensory (2-3nd Digit) Wrist 5.3 17.8 Wrist 2-3nd Digit 5.3 14.0 26 Wrist 6.1 7.5 Wrist 2-3nd Digit 5.3 14.0 26 Left Radial Anti Sensory (Base 1st Digit) Wrist 2.4 29.5 Wrist Base 1st Digit 2.4 0.0 Right Radial Anti Sensory (Base 1st Digit) Wrist 2.5 14.7 Wrist Base 1st Digit 2.5 0.0 Left Ulnar Anti Sensory (5th Digit) Wrist 2.8 28.7 Wrist 5th Digit 2.8 14.0 50 Right Ulnar Anti Sensory (5th Digit) Wrist 2.8 28.7 Wrist 5th Digit 2.8 14.0 50 Motor Summary Table Stim Site NR Onset (ms) O-P Amp (mV) Site1 Site2 Delta-0 (ms) Dist (cm) Omar (m/s) Left Median Motor (Abd Poll Brev) Wrist 5.3 2.8 Elbow Wrist 7.3 31.0 42 Elbow 12.6 1.6 Right Median Motor (Abd Poll Brev) Wrist 6.4 1.4 Elbow Wrist 5.0 32.0 64 Elbow 11.4 0.8 Left Ulnar Motor (Abd Dig Minimi) Wrist 2.5 4.7 A Elbow Wrist 7.5 31.0 41 A Elbow 10.0 2.4 B Elbow Wrist 5.2 27.0 52 B Elbow 7.7 4.8 Right Ulnar Motor (Abd Dig Minimi) Wrist 3.0 7.6 A Elbow Wrist 7.2 32.0 44 A Elbow 10.2 6.2 B Elbow Wrist 5.5 22.0 40 B Elbow 8.5 6.5 F Wave Studies NR F-Lat (ms) L-R F-Lat (ms) Left Median (Mrkrs) (Abd Poll Brev) 28.65 0.23 Right Median (Mrkrs) (Abd Poll Brev) 28.42 0.23 Left Ulnar (Mrkrs) (Abd Dig Min) 28.44 1.15 Right Ulnar (Mrkrs) (Abd Dig Min) 29.59 1.15 EMG Side Muscle Nerve Root Ins Act Fibs Amp Dur Recrt Comment Right 1stDorInt Ulnar C8-T1 Nml Nml Nml Nml Reduced Right Ext Indicis Radial (Post Int) C7-8 Nml Nml Nml Nml Reduced Right Ext Digitorum Radial (Post Int) C7-8 Nml Nml Nml Nml Reduced Right BrachioRad Radial C5-6 Nml Nml Nml Nml Reduced Right PronatorTeres Median C6-7 Nml Nml Nml Nml Reduced Right Abd Poll Brev Median C8-T1 Nml Nml Nml Nml Reduced Left 1stDorInt Ulnar C8-T1 Nml Nml Nml Nml Reduced Left Ext Indicis Radial (Post Int) C7-8 Nml Nml Nml Nml Reduced Left Ext Digitorum Radial (Post Int) C7-8 Nml Nml Nml Nml Reduced Left BrachioRad Radial C5-6 Nml Nml Nml Nml Reduced Left PronatorTeres Median C6-7 Nml Nml Nml Nml Reduced Left Abd Poll Brev Median C8-T1 Nml Nml Nml Nml Reduced Right ABD Dig Min Ulnar C8-T1 Nml Nml Nml Nml Reduced Left ABD Dig Min Ulnar C8-T1 Nml Nml Nml Nml Reduced MTDD
== END 2022-09-03 09:33 | disposition home or self-care (01) ==
LOC: ANHNEURO 09:33
PROVIDERS: PCP Registered Nurse; Visit Provider Registered Nurse
DX: G56.03 Carpal tunnel syndrome, bilateral upper limbs (principal); G56.23 Lesion of ulnar nerve, bilateral upper limbs; G63 Polyneuropathy in diseases classified elsewhere
CPT/HCPCS: 95886; 95911

== ENCOUNTER 2022-09-26 12:47 | Emergency (ER) | payer MEDICARE, MEDICAID, SELFPAY ==
[2022-09-26 13:00] VITALS: BP 140/69; PULSE 106; RESP 16; TEMP 35.8; O2SAT 97
--- NOTE | 2022-09-26 13:05 | ED.SKABFB ---
HPI - Skin/Abscess/Foreign Bdy General Chief complaint: Skin/Abscess/Foreign Body Stated complaint: SPOT ON LEFT ARM Time Seen by Provider: 09/26/22 13:02 Source: patient, RN notes reviewed and old records reviewed Mode of arrival: ambulatory Limitations: no limitations History of Present Illness HPI narrative: 62 year old male who presents to [facility] with complaints of skin lesion to his left forearm for the past 2 days. Patient reports that he thought was a bug bite or pimple at first denies any pain to area, Patient admits that he has picked at area and now surrounded by red bruising, patient is on blood thinner daily.0.25 round area to dorsal aspect of left foretm with what appears to be scab with surrounding bruising, no drainage or any pain to area. MD complaint: other (skin lesion) Onset (ago): day(s) (2) Severity scale (1-10): 1 Treatments prior to arrival: none Related Data Home Medications Medication Instructions Recorded Confirmed amlodipine 10 mg tablet 10 mg PO DAILY 01/24/19 05/04/22 bupropion HCl 150 mg tablet,12 hr 150 mg PO BID 01/24/19 05/04/22 sustained-release (Wellbutrin SR) doxazosin 2 mg tablet (Cardura) 2 mg PO HS 01/24/19 05/04/22 dulaglutide 1.5 mg/0.5 mL 1.5 mg subcut WEEKLY 01/24/19 05/04/22 subcutaneous pen injector (Trulicity) metformin 1,000 mg tablet 1,000 mg PO BID 01/24/19 05/04/22 rivaroxaban 2.5 mg tablet (Xarelto) 2.5 mg PO BID 01/24/19 05/04/22 omeprazole 40 mg capsule,delayed 40 mg PO DAILY 04/13/19 05/04/22 release carvedilol 25 mg tablet (Coreg) 25 mg PO BID 04/28/19 05/04/22 atorvastatin 40 mg tablet 80 mg PO HS 05/16/19 05/04/22 albuterol sulfate 90 mcg/actuation 2 puff inhalation Q4-6H PRN 01/09/20 05/04/22 aerosol inhaler (Ventolin HFA) Shortness Of Breath isosorbide mononitrate 60 mg 120 mg PO DAILY 01/09/20 05/04/22 tablet,extended release 24 hr loratadine 10 mg tablet (Claritin) 10 mg PO DAILY 03/15/20 05/04/22 alprazolam 0.25 mg tablet 0.25 mg PO HS 08/21/21 05/04/22 aspirin 81 mg chewable tablet 81 mg PO DAILY 09/29/21 05/04/22 (Children's Aspirin) losartan 100 mg tablet 100 mg PO DAILY 01/17/22 05/04/22 Allergies Allergy/AdvReac Type Severity Reaction Status Date / Time No Known Allergies Allergy Unknown Verified 05/14/22 13:57 Review of Systems Review of Systems: CONSTITUTIONAL: Denies fever, chills, or sweats. CARDIOVASCULAR: Denies chest pain, palpitations, or edema. RESPIRATORY: Denies cough or dyspnea. GASTROINTESTINAL: Denies abdominal pain, nausea, vomiting SKIN: Reports redness and bruising center appears to have scab on left dorsal forearm, Denies purulent drainage, vesicles, bullae, numbness, pain beyond proportion MUSCULOSKELETAL: Denies myalgia. NEUROLOGIC: Denies headache, numbness All systems reviewed & are unremarkable except as noted in HPI and below PMFSH Past Medical History Medical History Angina at rest BMI greater than 40 Cerebrovascular accident Mild left-sided weakness. Chronic anticoagulation Chronic obstructive pulmonary disease Congestive heart failure Coronary artery disease COVID Deep venous thrombosis Depression Diabetic peripheral neuropathy Fracture of fifth toe, right, closed Gastric ulcer Gastroesophageal reflux disease Hydronephrosis Hyperlipidemia Hypertension Kidney stones Myocardial infarction Obstructive sleep apnea on CPAP Peripheral vascular disease Pneumonia Psoriasis Seasonal allergies Transient ischemic attack Type 2 diabetes mellitus Surgical History Surgical History History of cardiac catheterization 2 stents History of cholecystectomy History of heart artery stent X2. History of lithotripsy History of rectal polypectomy History of tonsillectomy Family History Family History Mother Diabetes mellitu
== END 2022-09-26 13:20 | disposition home or self-care (01) ==
PROVIDERS: Emergency Provider Registered Nurse; PCP Registered Nurse
DX: L98.9 Disorder of the skin and subcutaneous tissue, unspecified (principal); F17.210 Nicotine dependence, cigarettes, uncomplicated; I25.110 Atherosclerotic heart disease of native coronary artery with unstable angina pectoris; I69.354 Hemiplegia and hemiparesis following cerebral infarction affecting left non-dominant side; J44.9 Chronic obstructive pulmonary disease, unspecified; I11.0 Hypertensive heart disease with heart failure; I50.9 Heart failure, unspecified; E11.42 Type 2 diabetes mellitus with diabetic polyneuropathy; K21.9 Gastro-esophageal reflux disease without esophagitis; E78.5 Hyperlipidemia, unspecified; G47.33 Obstructive sleep apnea (adult) (pediatric); E11.51 Type 2 diabetes mellitus with diabetic peripheral angiopathy without gangrene; Z95.5 Presence of coronary angioplasty implant and graft; Z79.01 Long term (current) use of anticoagulants; Z79.82 Long term (current) use of aspirin; Z79.84 Long term (current) use of oral hypoglycemic drugs
CPT/HCPCS: 99213; G0463

== ENCOUNTER 2022-10-17 18:00 | Emergency (ER) | payer MEDICARE, MEDICAID, SELFPAY ==
[2022-10-17] VITALS (15 sets, daily range): BP systolic 132–162; BP diastolic 72–82; PULSE 77–98; RESP 15–17; TEMP 36.4–36.6; O2SAT 95–98
--- NOTE | ~2022-10-17 | CT_ITS ---
EXAMINATION: CT abdomen pelvis wo con DATE: 10/17/2022 19:33 INDICATION: flank pain TECHNIQUE: Computed tomography (CT) of the abdomen and pelvis was performed without intravenous contr ast. Automated exposure control and iterative reconstruction technique were employed. The dose-length product was 1440.20 mGy-cm. COMPARISON: 08/22/2022. FINDINGS: Lower thorax: Mild bibasilar scar/atelectasis. Coronary artery calcifications. Liver: Hepatomegaly. Steatosis. Biliary/Gallbladder: Gallbladder is absent. No bile duct dilation. Pancreas: No mass or duct dilation. Spleen: Normal. Adrenals:Bilateral adrenal myelolipomas. Kidneys: No suspicious mass. No obstructive calcification. No hydronephrosis. Mild bilateral perineph roscoe stranding. 3 cm simple right midpole cyst. GI tract: No small or large bowel dilation. Normal appendix. Mesentery/Peritoneum: No ascites, mass, or free air. Retroperitoneum: No mass. Atherosclerotic abdominal aortic and/or arterial calcifications. Pelvis: Pelvic organs are within normal limits. Soft Tissues: Small, uncomplicated fat-containing bilateral inguinal hernias. Bones: No acute osseous finding. IMPRESSION: No acute process detected in the abdomen or pelvis. Reviewed, dictated and finalized at location K.
[2022-10-17 18:26] LABS: Basophils Percent Auto 0.3 % (0.2-1.2); Eosinophils Absolute Auto 0.1 K/mm3 (0-0.3); Eosinophils Percent Auto 1.8 % (0-4.4); Hematocrit 40.7 % (42.0-52.0); Hemoglobin 14.1 g/dL (14.0-18.0); Immature Granulocyte Absolute 0.04 K/mm3 (0.00-0.031); Immature Granulocyte Percent A 0.5 % (0-0.5); Lymphocytes Absolute Auto 1.48 K/mm3 (0.9-3.2); Mean Corpuscular HGB Conc 34.6 g/dl (32-36); Mean Corpuscular Hemoglobin 30.7 pg (26-34); Mean Corpuscular Volume 88.7 fl (80-100); Monocytes Absolute Auto 0.7 K/mm3 (0.1-0.6); Monocytes Percent Auto 8.6 % (2.6-8.5); Neutrophils Absolute Auto 5.4 K/mm3 (1.3-6.7); Neutrophils Percent Auto 69.8 % (45.5-73.1); Platelet Count Result 145 k/mm3 (150-375); Red Blood Count 4.59 M/mm3 (4.6-6.20); Red Cell Distribution Width 13.2 % (11.5-14.5); White Blood Count 7.8 K/mm3 (4.5-10.0)
[2022-10-17 18:46] LABS: Alanine Aminotransferase 41 U/L (6-50); Albumin Level 4.3 g/dL (3.5-5.1); Alkaline Phosphatase 60 U/L (38-126); Anion Gap 12 mmol/L (8-16); Aspartate Amino Transferase 35 U/L (17-59); Bilirubin,Total 0.5 mg/dL (0.2-1.3); Blood Urea Nitrogen 21 mg/dL (9-20); Carbon Dioxide 22 mmol/L (22-30); Chloride 101 mmol/L (98-107); Estimated CRCL calculation 89 ml/min; Estimated Glomerular Filt Rate > 60; Glucose 165 mg/dL (65-110); Potassium 3.9 mmol/L (3.4-5.0); Sodium 135 mmol/L (137-145)
[2022-10-17 19:06] LABS: Appearance Urine Clear (Clear); Bacteria Urine None Seen /hpf; Bilirubin Urine Negative (Negative); Blood Urine Negative (Negative); Color Urine Yellow (Yellow); Glucose Urine UA 2+ mg/dL (Negative); Ketones Urine Trace mg/dL (Negative); Leukocyte Esterase Ur Negative LEU/UL (Negative); Nitrate Urine Negative (Negative); Protein Urine 2+ mg/dL (Negative); RBC Urine 0-2 /hpf (0-2); Specific Grav Ur 1.024 (1.001-1.035); Squamous Epithelial Cell Urine None seen /hpf (Few); Urobilinogen Urine 0.2 mg/dL (<2.0); WBC Urine 0-5 /hpf; pH Urine 5.5 (5.0-9.0)
[2022-10-17 19:07] LABS: Add Urine Microscopic? YES
--- NOTE | 2022-10-17 19:22 | PC.NURSE ---
Patient report received from Cat, RN. All question answered and care of patient assumed.
--- NOTE | 2022-10-17 19:27 | PC.NURSE ---
Patient off unit to CT.
[2022-10-17] MEDS: HYDROmorphone HCL INJ (*CRX) 1 MG/ML SYR IV PUSH (20:27)
[2022-10-17] MEDS: ONDANSETRON INJ 4 MG/2 ML VIAL IV PUSH (20:27)
--- NOTE | 2022-10-17 20:55 | PC.NURSE ---
Patient report given to CAR Delgado. All questions answered and care of patient transferred.
--- NOTE | 2022-10-17 23:08 | ED.GENADULT ---
HPI - General Adult General Chief complaint: Urogenital-Male Stated complaint: right flank pain - history of kidney stones Time Seen by Provider: 10/17/22 19:11 History of Present Illness HPI narrative: Patient is a 62-year-old gentleman who presents the emergency department with chief complaint of right-sided flank pain. Patient reports that he has history of kidney stones and reports that started having pain in the right flank area the patient states it feels similar to whenever he has passed stones in the past patient reports that little bit of nausea with this reports no fever reports no blood in his urine. Related Data Home Medications Medication Instructions Recorded Confirmed amlodipine 10 mg tablet 10 mg PO DAILY 01/24/19 05/04/22 bupropion HCl 150 mg tablet,12 hr 150 mg PO BID 01/24/19 05/04/22 sustained-release (Wellbutrin SR) doxazosin 2 mg tablet (Cardura) 2 mg PO HS 01/24/19 05/04/22 dulaglutide 1.5 mg/0.5 mL 1.5 mg subcut WEEKLY 01/24/19 05/04/22 subcutaneous pen injector (Trulicity) metformin 1,000 mg tablet 1,000 mg PO BID 01/24/19 05/04/22 rivaroxaban 2.5 mg tablet (Xarelto) 2.5 mg PO BID 01/24/19 05/04/22 omeprazole 40 mg capsule,delayed 40 mg PO DAILY 04/13/19 05/04/22 release carvedilol 25 mg tablet (Coreg) 25 mg PO BID 04/28/19 05/04/22 atorvastatin 40 mg tablet 80 mg PO HS 05/16/19 05/04/22 albuterol sulfate 90 mcg/actuation 2 puff inhalation Q4-6H PRN 01/09/20 05/04/22 aerosol inhaler (Ventolin HFA) Shortness Of Breath isosorbide mononitrate 60 mg 120 mg PO DAILY 01/09/20 05/04/22 tablet,extended release 24 hr loratadine 10 mg tablet (Claritin) 10 mg PO DAILY 03/15/20 05/04/22 alprazolam 0.25 mg tablet 0.25 mg PO HS 08/21/21 05/04/22 aspirin 81 mg chewable tablet 81 mg PO DAILY 09/29/21 05/04/22 (Children's Aspirin) losartan 100 mg tablet 100 mg PO DAILY 01/17/22 05/04/22 Allergies Allergy/AdvReac Type Severity Reaction Status Date / Time No Known Allergies Allergy Unknown Verified 10/17/22 18:29 Review of Systems Review of Systems: A 10 system review of systems was completed on the patient and is negative except for what is stated in the HPI. Nursing and ancillary documentation was reviewed. [facility] Past Medical History Medical History Angina at rest BMI greater than 40 Cerebrovascular accident Mild left-sided weakness. Chronic anticoagulation Chronic obstructive pulmonary disease Congestive heart failure Coronary artery disease COVID Deep venous thrombosis Depression Diabetic peripheral neuropathy Fracture of fifth toe, right, closed Gastric ulcer Gastroesophageal reflux disease Hydronephrosis Hyperlipidemia Hypertension Kidney stones Myocardial infarction Obstructive sleep apnea on CPAP Peripheral vascular disease Pneumonia Psoriasis Seasonal allergies Transient ischemic attack Type 2 diabetes mellitus Surgical History Surgical History History of cardiac catheterization 2 stents History of cholecystectomy History of heart artery stent X2. History of lithotripsy History of rectal polypectomy History of tonsillectomy Family History Family History Mother Diabetes mellitus Kidney stones Arthritis Father Acute myocardial infarction Heart disease Kidney stones Hypertension Sibling Coronary artery disease Heart disease Hx of CABG Social History Social History Social History: Surrogate decision maker: Rena Dodd, friend. Code status: Full code. Smoking packs per day: 0.5 Smoking cigarettes per day: 10.0 Years smoked: 45 Smoking pack-years: 22.50 Smoking status: Current every day smoker Tobacco type: cigarettes Second hand tobacco smoke exposure: No Alcohol
[2022-10-17] MEDS: ONDANSETRON HCL ODT 4 MG TABLET PO (23:22)
[2022-10-17] MEDS: HYDROcodone/acetaminophen (*CRX) 5-325 MG TABLET 1 TAB PO (23:22)
== END 2022-10-17 23:27 | disposition home or self-care (01) ==
PROVIDERS: Emergency Medicine; Emergency Provider Emergency Medicine; PCP Registered Nurse
DX: R10.9 Unspecified abdominal pain (principal); I69.954 Hemiplegia and hemiparesis following unspecified cerebrovascular disease affecting left non-dominant side; I50.9 Heart failure, unspecified; I11.0 Hypertensive heart disease with heart failure; I25.10 Atherosclerotic heart disease of native coronary artery without angina pectoris; E11.42 Type 2 diabetes mellitus with diabetic polyneuropathy; E11.51 Type 2 diabetes mellitus with diabetic peripheral angiopathy without gangrene; I73.9 Peripheral vascular disease, unspecified; J44.9 Chronic obstructive pulmonary disease, unspecified; E78.5 Hyperlipidemia, unspecified; I25.2 Old myocardial infarction; G47.33 Obstructive sleep apnea (adult) (pediatric); K21.9 Gastro-esophageal reflux disease without esophagitis; F17.210 Nicotine dependence, cigarettes, uncomplicated; F32.A Depression, unspecified; Z95.5 Presence of coronary angioplasty implant and graft; Z86.16 Personal history of COVID-19; Z86.718 Personal history of other venous thrombosis and embolism; Z87.01 Personal history of pneumonia (recurrent); Z87.442 Personal history of urinary calculi; Z87.19 Personal history of other diseases of the digestive system; Z90.49 Acquired absence of other specified parts of digestive tract; Z79.82 Long term (current) use of aspirin; Z79.01 Long term (current) use of anticoagulants; Z79.85 Long-term (current) use of injectable non-insulin antidiabetic drugs; Z79.84 Long term (current) use of oral hypoglycemic drugs
CPT/HCPCS: 36415; 74176; 80053; 81001; 85025; 96374; 96375; 99284; A9270; J1170; J2405

== ENCOUNTER 2022-10-31 13:06 | Emergency (ER) | payer MEDICARE, MEDICAID, SELFPAY ==
--- NOTE | ~2022-10-31 | XR_ITS ---
EXAMINATION: XR lumbar spine min 4V DATE: 10/31/2022 14:52 INDICATION: Back pain. TECHNIQUE: 5 views of lumbar spine were obtained. COMPARISON: Lumbar spine radiographs 04/19/2020 FINDINGS: Bone alignment is normal. There is mild chronic anterior wedging of T11-L1 vertebral bodies . There is mildly decreased disc height at L4-L5. There are endplate osteophytes at all levels. There is multilevel mild facet joint osteoarthritis. L5-S1, there is severe bilateral facet joint osteoart hritis. Surgical clips in the right upper quadrant are likely from cholecystectomy. IMPRESSION: 1. Mild lumbar spondylosis. Reviewed, dictated and finalized at location E. IMPRESSION: 1. Mild lumbar spondylosis.
[2022-10-31 13:07] VITALS: BP 158/75; PULSE 90; RESP 23; TEMP 36.6; O2SAT 98
--- NOTE | 2022-10-31 14:08 | ED.BACK ---
HPI - Back Pain/Injury General Chief Complaint: Back Pain/Injury Stated Complaint: Sciatic nerve Time Seen by Provider: 10/31/22 14:08 Source: patient Mode of arrival: ambulatory History of Present Illness HPI Narrative: Patient is a pleasant 62-year-old male with a past medical history of obesity, COPD, type 2 diabetes, chronic heart failure, TIA, hypertension, hyperlipidemia, diabetic neuropathy who presents emergency department today includes with steady gait evaluation of pain to the right lower back that radiates to his right glute that he feels like his is sciatic pain. He states that he was seen here recently and thought he had a kidney stone due to the pain to the flank however nothing was found. He states he took [place] before coming here and has eased the pain some. He states the pain is worse with standing. He denies any current pain with urination, blood in his urine, urinary tension, fever, chills, nausea, vomiting, abdominal pain, diarrhea, loss of control of his bowels or bladder, numbness in his groin, recent injections of steroids to that, numbness or tingling to bilateral lower extremities, or any other symptoms. Related Data Home Medications Medication Instructions Recorded Confirmed amlodipine 10 mg tablet 10 mg PO DAILY 01/24/19 05/04/22 bupropion HCl 150 mg tablet,12 hr 150 mg PO BID 01/24/19 05/04/22 sustained-release (Wellbutrin SR) doxazosin 2 mg tablet (Cardura) 2 mg PO HS 01/24/19 05/04/22 dulaglutide 1.5 mg/0.5 mL 1.5 mg subcut WEEKLY 01/24/19 05/04/22 subcutaneous pen injector ([facility]) metformin 1,000 mg tablet 1,000 mg PO BID 01/24/19 05/04/22 rivaroxaban 2.5 mg tablet (Xarelto) 2.5 mg PO BID 01/24/19 05/04/22 omeprazole 40 mg capsule,delayed 40 mg PO DAILY 04/13/19 05/04/22 release carvedilol 25 mg tablet (Coreg) 25 mg PO BID 04/28/19 05/04/22 atorvastatin 40 mg tablet 80 mg PO HS 05/16/19 05/04/22 albuterol sulfate 90 mcg/actuation 2 puff inhalation Q4-6H PRN 01/09/20 05/04/22 aerosol inhaler (Ventolin HFA) Shortness Of Breath isosorbide mononitrate 60 mg 120 mg PO DAILY 01/09/20 05/04/22 tablet,extended release 24 hr loratadine 10 mg tablet (Claritin) 10 mg PO DAILY 03/15/20 05/04/22 alprazolam 0.25 mg tablet 0.25 mg PO HS 08/21/21 05/04/22 aspirin 81 mg chewable tablet 81 mg PO DAILY 09/29/21 05/04/22 (Children's Aspirin) losartan 100 mg tablet 100 mg PO DAILY 01/17/22 05/04/22 Allergies Allergy/AdvReac Type Severity Reaction Status Date / Time No Known Allergies Allergy Unknown Verified 10/31/22 14:59 Review of Systems Review of Systems: CONSTITUTIONAL: Denies fever, chills, or sweats. EYES: Denies visual changes, redness, or discharge. ENT: Denies rhinorrhea, congestion, sore throat, or otalgia. CARDIOVASCULAR: Denies chest pain, palpitations, or edema. RESPIRATORY: Denies cough or dyspnea. GASTROINTESTINAL: Denies abdominal pain, nausea, vomiting, or diarrhea. GENITOURINARY: Denies dysuria or hematuria. SKIN: Denies rash or itching. MUSCULOSKELETAL: right low back pain radiates to right glute. Denies joint pain, or myalgia. NEUROLOGIC: Denies headache, numbness, or weakness. PSYCHIATRIC: Denies anxiety or depression. ROS unobtainable: Yes unobtainable due to endotracheal tube PMFSH Past Medical History Medical History Angina at rest BMI greater than 40 Cerebrovascular accident Mild left-sided weakness. Chronic anticoagulation Chronic obstructive pulmonary disease Congestive heart failure Coronary artery disease COVID Deep venous thrombosis Depression Diabetic peripheral neuropathy Fracture of fifth toe, right, closed Gastric ulcer Gastroesophageal reflux disease Hydronephrosis Hyperlipidemia Hypertension Kidney stones Myocardial infarction Obstructive sleep apnea on CPAP Peripheral vascular disease Pneumonia Psoriasis Seasonal allergies Transient ischemic attack Type 2 diabetes mellitus
[2022-10-31] MEDS: diazePAM (*CRX) 5 MG TABLET PO (14:59)
[2022-10-31] MEDS: LIDOCAINE 5% PATCH 1 PATCH TRANSDERM (15:00)
[2022-10-31 15:20] LABS: Basophils Percent Auto 0.3 % (0.2-1.2); Eosinophils Absolute Auto 0.1 K/mm3 (0-0.3); Eosinophils Percent Auto 1.8 % (0-4.4); Hematocrit 42.4 % (42.0-52.0); Hemoglobin 14.4 g/dL (14.0-18.0); Immature Granulocyte Absolute 0.02 K/mm3 (0.00-0.031); Immature Granulocyte Percent A 0.3 % (0-0.5); Immature Platelet Fraction Pct 7.8 % (0.9-11.2); Lymphocytes Absolute Auto 1.36 K/mm3 (0.9-3.2); Lymphocytes Percent Auto 17.4 % (18.3-44.2); Mean Corpuscular Hemoglobin 30.5 pg (26-34); Mean Corpuscular Volume 89.8 fl (80-100); Mean Platelet Volume 11.1 fl (7.4-10.4); Monocytes Absolute Auto 0.6 K/mm3 (0.1-0.6); Monocytes Percent Auto 8.2 % (2.6-8.5); Neutrophils Absolute Auto 5.6 K/mm3 (1.3-6.7); Platelet Count Result 141 k/mm3 (150-375); Red Blood Count 4.72 M/mm3 (4.6-6.20); Red Cell Distribution Width 13.6 % (11.5-14.5); White Blood Count 7.8 K/mm3 (4.5-10.0)
[2022-10-31 15:30] LABS: Appearance Urine Clear (Clear); Bacteria Urine None Seen /hpf; Bilirubin Urine Negative (Negative); Blood Urine Trace (Negative); Color Urine Dark Yellow (Yellow); Glucose Urine UA 1+ mg/dL (Negative); Ketones Urine Trace mg/dL (Negative); Leukocyte Esterase Ur Negative LEU/UL (Negative); Need Manual Microscopic Reviewed; Nitrate Urine Negative (Negative); Non Pathogenic Casts >20; Protein Urine 3+ mg/dL (Negative); RBC Urine 0-2 /hpf (0-2); Specific Grav Ur 1.022 (1.001-1.035); Squamous Epithelial Cell Urine None seen /hpf (Few); WBC Urine 0-5 /hpf; pH Urine 5.5 (5.0-9.0)
[2022-10-31 15:31] LABS: Add Urine Microscopic? YES
[2022-10-31 15:32] LABS: Alanine Aminotransferase 42 U/L (6-50); Albumin Level 4.3 g/dL (3.5-5.1); Alkaline Phosphatase 62 U/L (38-126); Anion Gap 12 mmol/L (8-16); Aspartate Amino Transferase 35 U/L (17-59); Bilirubin,Total 0.6 mg/dL (0.2-1.3); Blood Urea Nitrogen 14 mg/dL (9-20); Calcium 8.9 mg/dL (8.4-10.2); Carbon Dioxide 21 mmol/L (22-30); Chloride 102 mmol/L (98-107); Estimated CRCL calculation 89 ml/min; Estimated Glomerular Filt Rate > 60; Glucose 208 mg/dL (65-110); Sodium 135 mmol/L (137-145)
[2022-10-31] MEDS: ONDANSETRON HCL ODT 4 MG TABLET PO (15:44)
--- NOTE | 2022-10-31 16:12 | PC.NURSE ---
Sitting in chair. Reports pain is almost gone.
== END 2022-10-31 16:33 | disposition home or self-care (01) ==
PROVIDERS: Emergency Provider Nurse Practitioner; PCP Registered Nurse
DX: M54.41 Lumbago with sciatica, right side (principal); I69.954 Hemiplegia and hemiparesis following unspecified cerebrovascular disease affecting left non-dominant side; I50.9 Heart failure, unspecified; I11.0 Hypertensive heart disease with heart failure; I25.10 Atherosclerotic heart disease of native coronary artery without angina pectoris; I25.2 Old myocardial infarction; J44.9 Chronic obstructive pulmonary disease, unspecified; E11.42 Type 2 diabetes mellitus with diabetic polyneuropathy; E11.51 Type 2 diabetes mellitus with diabetic peripheral angiopathy without gangrene; I73.9 Peripheral vascular disease, unspecified; E78.5 Hyperlipidemia, unspecified; L40.9 Psoriasis, unspecified; K21.9 Gastro-esophageal reflux disease without esophagitis; G47.33 Obstructive sleep apnea (adult) (pediatric); F17.210 Nicotine dependence, cigarettes, uncomplicated; Z95.5 Presence of coronary angioplasty implant and graft; Z86.718 Personal history of other venous thrombosis and embolism; Z86.16 Personal history of COVID-19; Z87.442 Personal history of urinary calculi; Z87.01 Personal history of pneumonia (recurrent); Z87.19 Personal history of other diseases of the digestive system; Z90.49 Acquired absence of other specified parts of digestive tract; Z79.82 Long term (current) use of aspirin; Z79.01 Long term (current) use of anticoagulants; Z79.84 Long term (current) use of oral hypoglycemic drugs; M47.816 Spondylosis without myelopathy or radiculopathy, lumbar region
CPT/HCPCS: 36415; 72110; 80053; 81001; 85025; 85055; 99283; A9270

== ENCOUNTER 2023-01-24 15:33 | Emergency (ER) | payer MEDICARE, MEDICAID, SELFPAY ==
[2023-01-24] VITALS (7 sets, daily range): BP systolic 122–141; BP diastolic 66–88; PULSE 73–95; RESP 16–18; TEMP 36.1; O2SAT 96–99
--- NOTE | ~2023-01-24 | CT_ITS ---
EXAMINATION: CTA brain carotid DATE: 01/24/2023 18:58 INDICATION: Left-sided weakness TECHNIQUE: Computed tomographic angiography (CTA) of the head and neck was performed with 100 mL Omni paque-350 intravenous contrast. Automated exposure control and iterative reconstruction technique wer e employed. The dose-length product was 1227.47 mGy-cm. Maximum intensity projection and volume rend ered 3D-reconstructions were created by the technologist on a separate workstation. COMPARISON: CT brain, same date. FINDINGS: CTA HEAD: No large vessel occlusion, aneurysm, high flow vascular malformation, nidus or extravasation. Patent cerebral veins. Old focal infarct in the right frontoparietal periventricular white matter/agu[place]o rad iata, otherwise symmetric parenchymal enhancement. CTA NECK: Aortic arch and proximal great vessels: Bovine arch. Mild arch calcification. Right common carotid, carotid bifurcation, and internal carotid artery: Mild calcification at the bif urcation.There is 0% stenosis of the proximal right internal carotid artery relative to normal distal artery lumen diameter (NASCET criteria). Left common carotid, carotid bifurcation, and internal carotid artery: No plaque.There is 0% stenosis of the proximal left internal carotid artery relative to normal distal artery lumen diameter (NASCET criteria). Vertebral arteries: No significant plaque or stenosis. Moderate narrowing of the proximal right verte bral artery as it enters the vascular foramen at C6. Codominant vertebral arteries. Other findings: None. IMPRESSION: No large vessel occlusion. No severe carotid or vertebral artery stenosis. Reviewed, dictated and finalized at location K. SE WRAPPER
--- NOTE | ~2023-01-24 | CT_ITS ---
EXAMINATION: CT brain wo con DATE: 01/24/2023 16:29 INDICATION: gait changes, headache . TECHNIQUE: Computed tomography (CT) of the head was performed without intravenous contrast. The mA wa s adjusted according to patient size. Iterative reconstruction technique was employed. The dose-lengt h product was 605.33 mGy-cm. COMPARISON: 05/04/2022. FINDINGS: No acute intracranial hemorrhage or extra-axial fluid collection. No hydrocephalus, mass, or herniation. No acute ischemic infarct. Unremarkable dural venous sinus attenuation. No acute osseous abnormality. The aerated spaces are clear. Mild atrophy and chronic white matter change. Atherosclerotic intracranial calcification. Old focal i nfarct in the right frontoparietal aguayo radiata. IMPRESSION: No acute intracranial process. Reviewed, dictated and finalized at location K. ER HELPER
--- NOTE | ~2023-01-24 | XR_ITS ---
EXAMINATION: XR chest 1V Exam Date/Time: 01/24/2023 17:14 ROLL GRINDER HISTORY: cva?; HTN, COPD, CHF, Type 2 DM, smoker Comparison: 05/04/2022. RESULT: Lines, tubes, and devices: Loop recorder. Lungs and pleura: Diffuse reticular opacities. Minimal streaky bibasilar opacities. Left costophreni c angle blunting. Cardiomediastinal silhouette: Stable. Other: No acute osseous or upper abdominal finding. IMPRESSION: Mild interstitial edema. Bibasilar atelectasis/scar. Small left effusion versus prominent cardiac fat pad. Reviewed, dictated and finalized at location K. GRINDER
--- NOTE | 2023-01-24 16:34 | ECG_ITS ---
Measurements Intervals [place] Rate: 82 P: 31 [place]: 163 QRS: 14 QRSD: 153 T: 28 QT: 396 QTc: 463 Interpretive Statements SINUS RHYTHM RIGHT BUNDLE BRANCH BLOCK CONSIDER INFERIOR INFARCT, AGE INDETERMINATE ABNORMAL ECG COMPARED TO ECG 05/04/2022 14:36:18 NO SIGNIFICANT CHANGES Electronically Signed On 01-24-2023 19:20:40 DRAG SEINER by Mathew Landon D.O.
[2023-01-24 16:47] LABS: Basophils Percent Auto 0.2 % (0.2-1.2); Eosinophils Absolute Auto 0.1 K/mm3 (0-0.3); Eosinophils Percent Auto 1.2 % (0-4.4); Hematocrit 39.7 % (42.0-52.0); Hemoglobin 13.4 g/dL (14.0-18.0); Immature Granulocyte Absolute 0.04 K/mm3 (0.00-0.031); Immature Granulocyte Percent A 0.5 % (0-0.5); Lymphocytes Absolute Auto 1.15 K/mm3 (0.9-3.2); Lymphocytes Percent Auto 13.5 % (18.3-44.2); Mean Corpuscular HGB Conc 33.8 g/dl (32-36); Mean Corpuscular Hemoglobin 30.1 pg (26-34); Mean Corpuscular Volume 89.2 fl (80-100); Mean Platelet Volume 10.7 fl (7.4-10.4); Monocytes Absolute Auto 0.7 K/mm3 (0.1-0.6); Monocytes Percent Auto 8.1 % (2.6-8.5); Neutrophils Absolute Auto 6.6 K/mm3 (1.3-6.7); Neutrophils Percent Auto 76.5 % (45.5-73.1); Platelet Count Result 143 k/mm3 (150-375); Red Blood Count 4.45 M/mm3 (4.6-6.20); Red Cell Distribution Width 13.4 % (11.5-14.5); White Blood Count 8.6 K/mm3 (4.5-10.0)
[2023-01-24 16:58] LABS: Alanine Aminotransferase 41 U/L (6-50); Albumin Level 4.2 g/dL (3.5-5.1); Alkaline Phosphatase 55 U/L (38-126); Anion Gap 13 mmol/L (8-16); Aspartate Amino Transferase 40 U/L (17-59); Bilirubin,Total 0.7 mg/dL (0.2-1.3); Blood Urea Nitrogen 22 mg/dL (9-20); Calcium 9.3 mg/dL (8.4-10.2); Carbon Dioxide 21 mmol/L (22-30); Chloride 100 mmol/L (98-107); Estimated CRCL calculation 71 ml/min; Estimated Glomerular Filt Rate 51; Glucose 230 mg/dL (65-110); Potassium 4.3 mmol/L (3.4-5.0); Sodium 134 mmol/L (137-145)
[2023-01-24 17:04] LABS: INR 1.2; Prothrombin Time 15.2 Seconds (11.1-14.7)
[2023-01-24 17:05] LABS: Partial Thromboplastin Time 32.8 SECONDS (22.3-36.8)
[2023-01-24 17:09] LABS: Troponin I < 0.012 ng/mL (0.000-0.034)
--- NOTE | 2023-01-24 18:12 | ED.NEUROSD ---
HPI - Neuro Symptoms/Deficit General Chief Complaint: Neuro Symptoms/Deficit Stated Complaint: tia or spomething Time Seen by Provider: 01/24/23 17:50 History of Present Illness HPI Narrative: Patient is a 62-year-old male with a history of hypertension, hyperlipidemia, CVA presenting with concerns for TIA. States that earlier today he felt like he was leaning towards his left side. States that the left side of his body felt heavy. States that he felt confused. He was with his roommate who did not notice a facial droop or speech changes. States that it continued for an hour 2 so he became concerned and came in for evaluation. States that he feels generally weak now but his other symptoms have improved. No chest pain or shortness of breath. No lightheadedness. Does report intermittent palpitations. No nausea or vomiting. No further complaints. Related Data Home Medications Medication Instructions Recorded Confirmed amlodipine 10 mg tablet 10 mg PO DAILY 01/24/19 05/04/22 bupropion HCl 150 mg tablet,12 hr 150 mg PO BID 01/24/19 05/04/22 sustained-release (Wellbutrin SR) doxazosin 2 mg tablet (Cardura) 2 mg PO HS 01/24/19 05/04/22 dulaglutide 1.5 mg/0.5 mL 1.5 mg subcut WEEKLY 01/24/19 05/04/22 subcutaneous pen injector (Trulicity) metformin 1,000 mg tablet 1,000 mg PO BID 01/24/19 05/04/22 rivaroxaban 2.5 mg tablet (Xarelto) 2.5 mg PO BID 01/24/19 05/04/22 omeprazole 40 mg capsule,delayed 40 mg PO DAILY 04/13/19 05/04/22 release carvedilol 25 mg tablet (Coreg) 25 mg PO BID 04/28/19 05/04/22 atorvastatin 40 mg tablet 80 mg PO HS 05/16/19 05/04/22 albuterol sulfate 90 mcg/actuation 2 puff inhalation Q4-6H PRN 01/09/20 05/04/22 aerosol inhaler (Ventolin HFA) Shortness Of Breath isosorbide mononitrate 60 mg 120 mg PO DAILY 01/09/20 05/04/22 tablet,extended release 24 hr loratadine 10 mg tablet (Claritin) 10 mg PO DAILY 03/15/20 05/04/22 alprazolam 0.25 mg tablet 0.25 mg PO HS 08/21/21 05/04/22 aspirin 81 mg chewable tablet 81 mg PO DAILY 09/29/21 05/04/22 (Children's Aspirin) losartan 100 mg tablet 100 mg PO DAILY 01/17/22 05/04/22 Allergies Allergy/AdvReac Type Severity Reaction Status Date / Time No Known Allergies Allergy Unknown Verified 01/24/23 18:40 Review of Systems Review of Systems: All systems reviewed & are unremarkable except as noted in HPI and below PMFSH Past Medical History Medical History Angina at rest BMI greater than 40 Cerebrovascular accident Mild left-sided weakness. Chronic anticoagulation Chronic obstructive pulmonary disease Congestive heart failure Coronary artery disease COVID Deep venous thrombosis Depression Diabetic peripheral neuropathy Fracture of fifth toe, right, closed Gastric ulcer Gastroesophageal reflux disease Hydronephrosis Hyperlipidemia Hypertension Kidney stones Myocardial infarction Obstructive sleep apnea on CPAP Peripheral vascular disease Pneumonia Psoriasis Seasonal allergies Transient ischemic attack Type 2 diabetes mellitus Surgical History Surgical History History of cardiac catheterization 2 stents History of cholecystectomy History of heart artery stent X2. History of lithotripsy History of rectal polypectomy History of tonsillectomy Family History Family History Mother Diabetes mellitus Kidney stones Arthritis Father Acute myocardial infarction Heart disease Kidney stones Hypertension Sibling Coronary artery disease Heart disease Hx of CABG Social History Social History Social History: Surrogate decision maker: Rena Dodd, friend. Code status: Full code. Smoking packs per day: 0.5 Smoking cigarettes per day: 10.0 Years smoked: 45 Smoking pack-
[2023-01-24] MEDS: SODIUM CHLORIDE 0.9% IV 1,000 ML 999 ML IV CONT (18:36)
[2023-01-24 21:47] LABS: Appearance Urine Clear (Clear); Bacteria Urine None Seen /hpf; Bilirubin Urine Negative (Negative); Blood Urine Negative (Negative); Color Urine Yellow (Yellow); Glucose Urine UA 1+ mg/dL (Negative); Hyaline Casts Urine Present /lpf; Ketones Urine Negative (Negative); Leukocyte Esterase Ur Negative LEU/UL (Negative); Nitrate Urine Negative (Negative); Protein Urine 2+ mg/dL (Negative); RBC Urine 0-2 /hpf (0-2); Specific Grav Ur 1.058 (1.001-1.035); Squamous Epithelial Cell Urine None seen /hpf (Few); Urobilinogen Urine 0.2 mg/dL (<2.0); WBC Urine 0-5 /hpf; pH Urine 5.5 (5.0-9.0)
[2023-01-24 21:48] LABS: Add Urine Microscopic? YES
== END 2023-01-24 22:18 | disposition home or self-care (01) ==
PROVIDERS: Emergency Medicine; Emergency Provider Emergency Medicine; PCP Registered Nurse
DX: R53.1 Weakness (principal); E86.0 Dehydration; I10 Essential (primary) hypertension; I25.10 Atherosclerotic heart disease of native coronary artery without angina pectoris; I69.954 Hemiplegia and hemiparesis following unspecified cerebrovascular disease affecting left non-dominant side; E78.5 Hyperlipidemia, unspecified; J44.9 Chronic obstructive pulmonary disease, unspecified; E11.42 Type 2 diabetes mellitus with diabetic polyneuropathy; E11.51 Type 2 diabetes mellitus with diabetic peripheral angiopathy without gangrene; I73.9 Peripheral vascular disease, unspecified; K21.9 Gastro-esophageal reflux disease without esophagitis; I25.2 Old myocardial infarction; G47.33 Obstructive sleep apnea (adult) (pediatric); L40.9 Psoriasis, unspecified; F17.210 Nicotine dependence, cigarettes, uncomplicated; Z95.5 Presence of coronary angioplasty implant and graft; Z86.16 Personal history of COVID-19; Z87.442 Personal history of urinary calculi; Z87.01 Personal history of pneumonia (recurrent); Z86.718 Personal history of other venous thrombosis and embolism; Z90.49 Acquired absence of other specified parts of digestive tract; Z79.84 Long term (current) use of oral hypoglycemic drugs; Z79.82 Long term (current) use of aspirin; Z79.01 Long term (current) use of anticoagulants; Z79.85 Long-term (current) use of injectable non-insulin antidiabetic drugs
CPT/HCPCS: 36415; 70450; 70496; 70498; 71045; 80053; 81001; 84484; 85025; 85610; 85730; 93005; 96360; 96361; 99284; J7030; Q9967

== ENCOUNTER 2023-02-04 12:43 | Inpatient (IN) | payer MEDICARE, MEDICAID, SELFPAY ==
[2023-02-04] VITALS (15 sets, daily range): BP systolic 154–181; BP diastolic 81–96; PULSE 55–103; RESP 14–32; TEMP 36.1; O2SAT 97–99; BMI 43.3
--- NOTE | ~2023-02-04 | XR_ITS ---
XR chest 2V 02/04/2023 13:10 Indication: Chest pain. Dizziness. CHF. Procedure: PA and lateral views of the chest Comparison: Comparison to multiple prior studies sequentially, with oldest reviewed study dated 11/18. Findings: Heart size normal. Mild bilateral perihilar and basilar interstitial infiltrates. No signif icant effusion or pneumothorax. No acute osseous abnormality. Impression: 1: Bilateral perihilar and bibasilar interstitial infiltrates which may represent mild edema or pneum onia. Reviewed, dictated and finalized at location B. [employer] Impression: 1: Bilateral perihilar and bibasilar interstitial infiltrates which may represe nt mild edema or pneumonia.
--- NOTE | 2023-02-04 12:44 | ECG_ITS ---
Measurements Intervals [place] Rate: 84 P: 43 [place]: 161 QRS: 38 QRSD: 160 T: 37 QT: 405 QTc: 481 Interpretive Statements SINUS RHYTHM RIGHT BUNDLE BRANCH BLOCK [120+ ms QRS DURATION, UPRIGHT V1, 40+ ms S IN I/aVL/V4/V5/V6] COMPARED TO ECG 01/24/2023 18:30:39 NO SIGNIFICANT CHANGES Electronically Signed On 02-04-2023 15:07:00 FIELD ARTILLERY CREWMEMBER by Julio Richardson M.D.
[2023-02-04 12:57] LABS: Basophils Percent Auto 0.3 % (0.2-1.2); Eosinophils Absolute Auto 0.1 K/mm3 (0-0.3); Eosinophils Percent Auto 1.3 % (0-4.4); Hematocrit 42.7 % (42.0-52.0); Hemoglobin 14.3 g/dL (14.0-18.0); Immature Granulocyte Absolute 0.02 K/mm3 (0.00-0.031); Immature Granulocyte Percent A 0.3 % (0-0.5); Immature Platelet Fraction Pct 6.9 % (0.9-11.2); Lymphocytes Absolute Auto 1.12 K/mm3 (0.9-3.2); Lymphocytes Percent Auto 14.8 % (18.3-44.2); Mean Corpuscular HGB Conc 33.5 g/dl (32-36); Mean Corpuscular Hemoglobin 30.4 pg (26-34); Mean Corpuscular Volume 90.7 fl (80-100); Mean Platelet Volume 11.1 fl (7.4-10.4); Monocytes Absolute Auto 0.7 K/mm3 (0.1-0.6); Monocytes Percent Auto 8.7 % (2.6-8.5); Neutrophils Absolute Auto 5.7 K/mm3 (1.3-6.7); Neutrophils Percent Auto 74.6 % (45.5-73.1); Platelet Count Result 132 k/mm3 (150-375); Red Blood Count 4.71 M/mm3 (4.6-6.20); Red Cell Distribution Width 13.3 % (11.5-14.5); White Blood Count 7.6 K/mm3 (4.5-10.0)
[2023-02-04 13:05] LABS: Alanine Aminotransferase 44 U/L (6-50); Albumin Level 4.3 g/dL (3.5-5.1); Alkaline Phosphatase 66 U/L (38-126); Anion Gap 12 mmol/L (8-16); Aspartate Amino Transferase 35 U/L (17-59); Bilirubin,Total 0.6 mg/dL (0.2-1.3); Blood Urea Nitrogen 14 mg/dL (9-20); Calcium 9.5 mg/dL (8.4-10.2); Carbon Dioxide 24 mmol/L (22-30); Chloride 102 mmol/L (98-107); Estimated CRCL calculation 89 ml/min; Estimated Glomerular Filt Rate > 60; Glucose 177 mg/dL (65-110); INR 1.2; Lipase 222 U/L (23-300); Potassium 4.3 mmol/L (3.4-5.0); Prothrombin Time 15.6 Seconds (11.1-14.7); Sodium 138 mmol/L (137-145)
[2023-02-04 13:06] LABS: Partial Thromboplastin Time 34.1 SECONDS (22.3-36.8)
[2023-02-04 13:16] LABS: Troponin I < 0.012 ng/mL (0.000-0.034)
--- NOTE | 2023-02-04 17:08 | ECG_ITS ---
Measurements Intervals [place] Rate: 83 P: 55 [place]: 176 QRS: 37 QRSD: 154 T: 22 QT: 387 QTc: 455 Interpretive Statements SINUS RHYTHM RIGHT BUNDLE BRANCH BLOCK [120+ ms QRS DURATION, UPRIGHT V1, 40+ ms S IN I/aVL/V4/V5/V6] COMPARED TO ECG 02/04/2023 12:48:57 NO SIGNIFICANT CHANGES Electronically Signed On 02-04-2023 17:34:03 TELEPHONY ENGINEER by Peyton Kirkland M.D.
--- NOTE | 2023-02-04 17:10 | PC.NURSE ---
pt c/o frontal headache from taking multiple nitros today. states when he is seen for kidney stones he receives dilaudid and would like that or something in that family.
[2023-02-04 17:29] LABS: Troponin I < 0.012 ng/mL (0.000-0.034)
--- NOTE | 2023-02-04 17:47 | PC.NURSE ---
pt calling this rns name out. states pain remains 10/09. described as pressure. fashion intern informed. edp has NOT evaluated pt as of yet.
--- NOTE | 2023-02-04 17:56 | ED.CHESTPAIN ---
HPI - Chest Pain General Chief Complaint: Chest Pain <Alexandra Saleem PA-C - Last Filed: 02/04/23 20:36> Stated Complaint: chest pain <Alexandra Saleem PA-C - Last Filed: 02/04/23 20:36> Time Seen by Provider: 02/04/23 17:17 <Alexandra Saleem PA-C - Last Filed: 02/04/23 20:36> Source: patient <SURESH Patel Last Filed: 02/04/23 20:36> Mode of arrival: ambulatory <SURESH Patel Last Filed: 02/04/23 20:36> Limitations: no limitations <SURESH Patel Last Filed: 02/04/23 20:36> History of Present Illness HPI narrative: This is a 62-year-old male that presents to the emergency department for chest pain. Ongoing since earlier this morning. The pain feels like pressure in his substernal area. Also reports some epigastric discomfort. He took a nitro at home with some relief, although now the pain has returned. Reports some shortness of breath. Denies any vomiting or lower extremity edema. <Alexandra Saleem PA-C - Last Filed: 02/04/23 20:36> Related Data Home Medications: Home Medications Medication Instructions Recorded Confirmed amlodipine 10 mg tablet 10 mg PO DAILY 01/24/19 02/04/23 bupropion HCl 150 mg tablet,12 hr 150 mg PO BID 01/24/19 02/04/23 sustained-release (Wellbutrin SR) doxazosin 2 mg tablet (Cardura) 2 mg PO HS 01/24/19 02/04/23 dulaglutide 1.5 mg/0.5 mL 1.5 mg subcut WEEKLY 01/24/19 02/04/23 subcutaneous pen injector (Trulicity) metformin 1,000 mg tablet 1,000 mg PO BID 01/24/19 02/04/23 rivaroxaban 2.5 mg tablet (Xarelto) 2.5 mg PO BID 01/24/19 02/04/23 omeprazole 40 mg capsule,delayed 40 mg PO DAILY 04/13/19 02/04/23 release carvedilol 25 mg tablet (Coreg) 25 mg PO BID 04/28/19 02/04/23 atorvastatin 40 mg tablet 80 mg PO HS 05/16/19 02/04/23 albuterol sulfate 90 mcg/actuation 2 puff inhalation Q4-6H PRN 01/09/20 02/04/23 aerosol inhaler (Ventolin HFA) Shortness Of Breath isosorbide mononitrate 60 mg 120 mg PO DAILY 01/09/20 02/04/23 tablet,extended release 24 hr loratadine 10 mg tablet (Claritin) 10 mg PO DAILY 03/15/20 02/04/23 alprazolam 0.25 mg tablet 0.25 mg PO HS 08/21/21 02/04/23 aspirin 81 mg chewable tablet 81 mg PO DAILY 09/29/21 02/04/23 (Children's Aspirin) losartan 100 mg tablet 100 mg PO DAILY 01/17/22 02/04/23 <Alexandra Saleem PA-C - Last Filed: 02/04/23 20:36> Allergies/Adverse Reactions: Allergies Allergy/AdvReac Type Severity Reaction Status Date / Time No Known Allergies Allergy Unknown Verified 01/24/23 18:40 <Alexandra Saleem PA-C - Last Filed: 02/04/23 20:36> Review of Systems Review of Systems: CONSTITUTIONAL: Denies fever CARDIOVASCULAR: Reports chest pain. Denies edema. RESPIRATORY: Reports dyspnea. Denies cough GASTROINTESTINAL: Reports abdominal pain, nausea. Denies vomiting <Alexandra Saleem PA-C - Last Filed: 02/04/23 20:36> All systems reviewed & are unremarkable except as noted in HPI and below <Alexandra Saleem PA-C - Last Filed: 02/04/23 20:36> [facility] Past Medical History Medical History: Medical History Angina at rest BMI greater than 40 Cerebrovascular accident Mild left-sided weakness. Chronic anticoagulation Chronic obstructive pulmonary disease Congestive heart failure Coronary artery disease COVID Deep venous thrombosis Depression Diabetic peripheral neuropathy Fracture of fifth toe, right, closed Gastric ulcer Gastroesophageal reflux disease Hydronephrosis Hyperlipidemia Hypertension Kidney stones Myocardial infarction Obstructive sleep apnea on CPAP Peripheral vascular disease Pneumonia Psoriasis Seasonal allergies Transient ischemic attack Type 2 diabetes mellitus <Alexandra Saleem PA-C - Last Filed: 02/04/23 20:36> Surgical History Surgical History: Surgical History History of cardiac catheterization
[2023-02-04] MEDS: ACETAMINOPHEN 500 MG TABLET 1000 MG PO (18:17)
[2023-02-04] MEDS: PANTOPRAZOLE SODIUM IV 40 MG VIAL IV PUSH (18:17)
[2023-02-04] MEDS: ONDANSETRON INJ 4 MG/2 ML VIAL IV PUSH ×2 (18:17→23:56)
[2023-02-04] MEDS: MORPHINE SULFATE (*CRX) 4 MG/ML INJ IV PUSH ×2 (18:17→20:49)
[2023-02-04 18:31] LABS: NT Pro B Type Natriuretic Pept 27 pg/mL (19.9-100)
--- NOTE | 2023-02-04 20:33 | ECG_ITS ---
Measurements Intervals [place] Rate: 84 P: 43 NE: 170 QRS: 43 QRSD: 156 T: 34 QT: 399 QTc: 473 Interpretive Statements NORMAL SINUS RHYTHM RIGHT BUNDLE-BRANCH BLOCK cOMPARED TO ECG 02/04/2023 17:04:03 NO SIGNIFICANT CHANGES Electronically Signed On 02-05-2023 18:53:09 PAINTER by Peyton Kirkland M.D.
--- NOTE | 2023-02-04 20:44 | PM.IMHP ---
H&P: HPI History of Present Illness Date/Time: 02/04/23 20:44 Chief Complaint: chest pain Narrative: This is a 62-year-old male with past medical history significant for morbid obesity, type diabetes mellitus, COPD/emphysema, coronary artery disease, diabetic peripheral neuropathy, GERD. Patient presented to emergency room due to sudden onset of retrosternal chest pain with radiation to the interscapular area neck and shoulder. Patient initially took his nitroglycerin on and off through the day PE pain when on and off through the day lasted longer than usual denies any fevers cough sputum production night sweats chills fevers rigors no palpitations no lightheadedness has bilateral lower extremity swelling which is his usual. Preliminary workup was significant for chest x-ray with lung infiltrates. R chest 2V 02/04/2023 13:10 Indication: Chest pain. Dizziness. CHF. Procedure: PA and lateral views of the chest Comparison: Comparison to multiple prior studies sequentially, with oldest reviewed study dated? 11/18/2021. Findings: Heart size normal. Mild bilateral perihilar and basilar interstitial infiltrates. No significant effusion or pneumothorax. No acute osseous abnormality. Impression: 1: Bilateral perihilar and bibasilar interstitial infiltrates which may represent mild edema or pneumonia. Review of Systems Review of Systems: Retrosternal chest pain with radiation to the interscapular area neck and shoulder Constitutional: Constitutional: Denies chills, Denies fever(s), Denies malaise and Denies night sweats Eyes: Eyes: Denies change in vision ENT: Denies dysphagia and Denies odynophagia Cardiovascular: Cardiovascular: Reports chest pain, Denies lightheadedness, Reports radiating jaw, neck or arm pain, Denies palpitations and Denies dyspnea Respiratory: Respiratory: Denies chest congestion, Denies cough and Denies wheezing Gastrointestinal: Gastrointestinal: Denies abdominal pain, Denies dyspepsia, Denies heartburn, Denies nausea and Denies vomiting Genitourinary: Genitourinary: Reports no additional male genitourinary complaints, Reports as per HPI and Denies dysuria Musculoskeletal: Musculoskeletal: Denies back pain, Denies arthralgias and Denies muscle weakness Integumentary/Breasts: Skin/Breast: Denies rash Neurologic: Denies focal weakness and Denies Sensory deficit (Neuro) Psychiatric: Psychiatric: Reports no additional psychiatric complaints and Reports as per HPI Endocrine: Endocrine: Denies cold intolerance, Denies flushing, Denies heat intolerance, Denies polyphagia, Denies polydipsia and Denies palpitations Hematologic/Lymphatic: Hematologic/Lymphatic: Reports no additional hematologic/lymphatic complaints and Reports as per HPI Allergic/Immunologic: Allergic/Immunologic: Reports no additional allergic/immunologic complaints and Reports as per HPI PMFSH Past Medical History Medical History Angina at rest BMI greater than 40 Cerebrovascular accident Mild left-sided weakness. Chronic anticoagulation Chronic obstructive pulmonary disease Congestive heart failure Coronary artery disease COVID Deep venous thrombosis Depression Diabetic peripheral neuropathy Fracture of fifth toe, right, closed Gastric ulcer Gastroesophageal reflux disease Hydronephrosis Hyperlipidemia Hypertension Kidney stones Myocardial infarction Obstructive sleep apnea on CPAP Peripheral vascular disease Pneumonia Psoriasis Seasonal allergies Transient ischemic attack Type 2 diabetes mellitus Surgical History Surgical History History of cardiac catheterization 2 stents History of cholecystectomy History of heart artery stent X2. History of lithotripsy History of rectal polypectomy History of tonsillectomy Family History Family History (Reviewed 01/24/23 @ 18:14 by Carole Morley Chr
[2023-02-04 20:59] LABS: Troponin I 0.063 ng/mL (0.000-0.034)
--- NOTE | 2023-02-04 22:03 | PC.NURSE ---
Pt dry heaving with c/o nausea. Dr. Quezada paged for orders.
--- NOTE | 2023-02-04 23:43 | ADMGEN ---
Addendum entered by Amy Burch RN 02/04/23 23:43: error Original Note: This patient, Vini Zambrano, was admitted to IMU Room 211-01. Patient/family oriented to hospital policies and general routines including ID bracelet, bed and alarms, visiting hours, pain management, procedures, bathroom and other care routines, personal items, smoking policy, room service/diet, and visiting hours. Information on how to activate the Rapid Response Team has been discussed. Patient/Family are encouraged to report perceived risks to care and to ask questions if they do not understand what they are told or what they should do.
[2023-02-05] VITALS (17 sets, daily range): BP systolic 104–137; BP diastolic 50–78; PULSE 73–111; RESP 16–24; TEMP 36–36.4; O2SAT 94–98
[2023-02-05] MEDS: NITROGLYCERIN 0.4 MG/HR PATCH 1 PATCH TRANSDERM ×2 (01:11→08:36)
[2023-02-05] MEDS: cefTRIAXone 2 GM/NS 100 ML 2 GM/100 ML BAG IVPB (04:36)
[2023-02-05] MEDS: AZITHROMYCIN 500 MG/NS 250 ML 500 MG/250 ML BAG 250 MG IVPB (05:12)
[2023-02-05] MEDS: amLODIPine BESYLATE 5 MG TABLET 10 MG PO (08:35)
[2023-02-05] MEDS: LORATADINE 10 MG TABLET PO (08:36)
[2023-02-05] MEDS: ASPIRIN 81 MG CHEWABLE TABLET PO (08:36)
[2023-02-05] MEDS: LOSARTAN POTASSIUM 100 MG TABLET PO (08:36)
[2023-02-05] MEDS: carvediloL 25 MG TABLET PO ×2 (08:36→21:44)
[2023-02-05] MEDS: RIVAROXABAN 2.5 MG TABLET PO (08:36)
[2023-02-05] MEDS: PANTOPRAZOLE 40 MG TABLET PO ×2 (08:36→21:45)
[2023-02-05] MEDS: ISOSORBIDE MONONITRATE 60 MG TAB.ER.24H 120 MG PO (08:36)
[2023-02-05] MEDS: buPROPion HCL SR (12 HR) 150 MG TAB PO ×2 (08:36→21:44)
[2023-02-05 09:57] LABS: Basophils Percent Auto 0.3 % (0.2-1.2); Eosinophils Absolute Auto 0.1 K/mm3 (0-0.3); Eosinophils Percent Auto 1.6 % (0-4.4); Hemoglobin 13.7 g/dL (14.0-18.0); Immature Granulocyte Absolute 0.02 K/mm3 (0.00-0.031); Immature Granulocyte Percent A 0.3 % (0-0.5); Lymphocytes Percent Auto 17.1 % (18.3-44.2); Mean Corpuscular HGB Conc 33.4 g/dl (32-36); Mean Corpuscular Volume 89.9 fl (80-100); Mean Platelet Volume 12.1 fl (7.4-10.4); Monocytes Absolute Auto 0.7 K/mm3 (0.1-0.6); Monocytes Percent Auto 8.8 % (2.6-8.5); Neutrophils Absolute Auto 5.5 K/mm3 (1.3-6.7); Neutrophils Percent Auto 71.9 % (45.5-73.1); Platelet Count Result 132 k/mm3 (150-375); Red Blood Count 4.56 M/mm3 (4.6-6.20); Red Cell Distribution Width 13.6 % (11.5-14.5); White Blood Count 7.6 K/mm3 (4.5-10.0)
[2023-02-05 11:07] LABS: Alanine Aminotransferase 44 U/L (6-50); Albumin Level 4.2 g/dL (3.5-5.1); Alkaline Phosphatase 69 U/L (38-126); Anion Gap 10 mmol/L (8-16); Aspartate Amino Transferase 44 U/L (17-59); Bilirubin,Total 0.7 mg/dL (0.2-1.3); Blood Urea Nitrogen 18 mg/dL (9-20); Calcium 9.4 mg/dL (8.4-10.2); Carbon Dioxide 22 mmol/L (22-30); Chloride 103 mmol/L (98-107); Estimated CRCL calculation 99 ml/min; Estimated Glomerular Filt Rate > 60; Glucose 163 mg/dL (65-110); Magnesium 1.5 mg/dL (1.6-2.3); Phosphorus 3.6 mg/dL (2.5-4.5); Potassium 4.2 mmol/L (3.4-5.0); Sodium 135 mmol/L (137-145)
--- NOTE | 2023-02-05 14:17 | PM.CNCAR ---
Assessment and Plan Assessment and plan (1) NSTEMI (non-ST elevated myocardial infarction): Code(s): I21.4 - Non-ST elevation (NSTEMI) myocardial infarction Status: Acute Assessment and Plan: Patient admitted with history consistent with acute coronary syndrome, now with troponin elevation of 2.1 consistent with a non-STEMI. EKG is unremarkable. --continue aspirin, statin --Xarelto on hold --started heparin drip --p.r.n. nitroglycerin, morphine --recommend cardiac catheterization tomorrow. Reviewed with patient who desires to proceed. (2) History of CVA (cerebrovascular accident): Code(s): Z86.73 - Personal history of transient ischemic attack (TIA), and cerebral infarction without residual deficits Status: Acute Assessment and Plan: History of TIA, history of loop recorder, no AFib. However the patient is on aspirin plus low-dose Xarelto for treatment. He had missed a dose on Thursday morning, but had his doses on Thursday night and morning. --By tomorrow he will have been off the Xarelto for more than 24 hours so bleeding risk with heart catheterization is reasonable. --cover with heparin drip in the meantime. (3) Chronic heart failure with preserved ejection fraction (HFpEF): Code(s): I50.32 - Chronic diastolic (congestive) heart failure Status: Acute Assessment and Plan: Mild edema but basically compensated. (4) HTN (hypertension): Qualifiers: Hypertension type: primary hypertension Qualified Code(s): I10 - Essential (primary) hypertension Code(s): I10 - Essential (primary) hypertension Status: Chronic Assessment and Plan: Blood pressure controlled. --continue amlodipine, carvedilol, doxazosin, losartan (5) HLD (hyperlipidemia): Qualifiers: Hyperlipidemia type: unspecified Qualified Code(s): E78.5 - Hyperlipidemia, unspecified Code(s): E78.5 - Hyperlipidemia, unspecified Status: Chronic Assessment and Plan: Taking atorvastatin, --continue atorvastatin, check lipids (6) Cough: Code(s): R05.9 - Cough, unspecified Status: Acute Assessment and Plan: Started a week ago, worsening. Has infiltrates on chest x-ray but no elevated white count --COVID test pending --check proBNP History of Present Illness History of Present Illness Consult date/time: 02/05/23 14:17 Reason For Visit: Chest Pain Narrative: Vini Zambrano is a 62 y.o.male whom we were asked to see at the request of Dr. Oh for our advice and opinion regarding his CP and eleveated troponins, in [facility]. He is followed by Dr. Willoughby for his history of CAD (stent implantation of the distal circumflex 2014 and proximal Left anterior descending in 2015) and chronic diastolic heart failure. He had several admissionsin 2021 and cath showed stable moderate nonobsructive disease, and treated medically. Also has a history of hypertension, diabetes, hyperlipidemia, old CVA, and sleep apnea. Doing well when last seen in September. The patient was in his normal state of health (except for a cough X 1 week), with some exertional fatigue but no exertional chest discomfort. Sometimes if he forgets his morning medications he will have chest discomfort intake nitroglycerin, but he has not needed any for over a month. He did forget his medications on Thursday morning this week. Yesterday after he woke up and was watching TV started having chest discomfort off and on in left substernal area radiating to the right neck and left arm. His discomfort has waxed and waned. He took 3 nitroglycerins throughout the day, which all helped but the discomfort kept coming back with increasing intensity. Had some nausea and LOZADA. He called our office and he was directed to go to the emergency room. Last night while being transferred to IMU he had a more intense episode, relieved with nitroglycerin patch. He has
[2023-02-05 16:17] LABS: Influenza A QL RT-PCR Negative (Negative); Influenza B QL RT-PCR Negative (Negative); RSV RNA, RT-PCR Negative (Negative); SARS-CoV-2 RNA PCR Negative (Negative)
[2023-02-05] MEDS: HEPARIN SOD/D5W 100 UNITS/ML 25,000 UNITS/250 ML BAG 10 UNITS IV CONT (16:50)
[2023-02-05] MEDS: HEPARIN SODIUM 5,000 UNITS/ML VIAL 4000 UNITS IV PUSH (16:50)
[2023-02-05 17:03] LABS: Basophils Percent Auto 0.2 % (0.2-1.2); Eosinophils Absolute Auto 0.1 K/mm3 (0-0.3); Eosinophils Percent Auto 1.6 % (0-4.4); Hematocrit 38.8 % (42.0-52.0); Hemoglobin 13.3 g/dL (14.0-18.0); Immature Granulocyte Absolute 0.03 K/mm3 (0.00-0.031); Immature Granulocyte Percent A 0.4 % (0-0.5); Lymphocytes Percent Auto 18.4 % (18.3-44.2); Mean Corpuscular HGB Conc 34.3 g/dl (32-36); Mean Corpuscular Hemoglobin 30.5 pg (26-34); Mean Platelet Volume 11.2 fl (7.4-10.4); Monocytes Absolute Auto 0.8 K/mm3 (0.1-0.6); Monocytes Percent Auto 10.2 % (2.6-8.5); Neutrophils Absolute Auto 5.7 K/mm3 (1.3-6.7); Neutrophils Percent Auto 69.2 % (45.5-73.1); Platelet Count Result 142 k/mm3 (150-375); Red Blood Count 4.36 M/mm3 (4.6-6.20); Red Cell Distribution Width 13.2 % (11.5-14.5); White Blood Count 8.2 K/mm3 (4.5-10.0)
[2023-02-05 17:12] LABS: INR 1.2; Prothrombin Time 15.3 Seconds (11.1-14.7)
[2023-02-05 17:13] LABS: Glucose Point of Care 157 mg/dl (65-105)
[2023-02-05 17:13] LABS: Partial Thromboplastin Time 31.9 SECONDS (22.3-36.8)
--- NOTE | 2023-02-05 19:28 | PM.IMPN ---
Progress Note: A&P Assessment and Plan (1) Coronary artery disease: Qualifiers: Coronary Disease-Associated Artery/Lesion type: [place] artery [place] vs. transplanted heart: [place] heart Associated angina: with other forms of angina Qualified Code(s): I25.118 - Atherosclerotic heart disease of [place] coronary artery with other forms of angina pectoris Code(s): I25.10 - Atherosclerotic heart disease of [place] coronary artery without angina pectoris Status: Acute (2) NSTEMI (non-ST elevated myocardial infarction): Code(s): I21.4 - Non-ST elevation (NSTEMI) myocardial infarction Status: Acute (3) Lung infiltrate: Code(s): R91.8 - Other nonspecific abnormal finding of lung field Status: Acute (4) Chest pain: Qualifiers: Chest pain type: unspecified Qualified Code(s): R07.9 - Chest pain, unspecified Code(s): R07.9 - Chest pain, unspecified Status: Acute (5) Type 2 diabetes mellitus: Qualifiers: Diabetes mellitus care home insulin use: with care home use Diabetes mellitus complication status: with circulatory complication Code(s): E11.9 - Type 2 diabetes mellitus without complications Status: Acute (6) Chronic heart failure with preserved ejection fraction (HFpEF): Code(s): I50.32 - Chronic diastolic (congestive) heart failure Status: Acute (7) Obstructive sleep apnea on CPAP: Code(s): G47.33 - Obstructive sleep apnea (adult) (pediatric); Z99.89 - Dependence on other enabling machines and devices Status: Acute (8) Diabetes mellitus: Qualifiers: Diabetes mellitus type: type 2 Diabetes mellitus watermaster insulin use: with watermaster use Diabetes mellitus complication status: with hyperglycemia Qualified Code(s): E11.65 - Type 2 diabetes mellitus with hyperglycemia; Z79.4 - snf (current) use of insulin Code(s): E11.9 - Type 2 diabetes mellitus without complications Status: Chronic (9) Depression: Code(s): F32.9 - Major depressive disorder, single episode, unspecified Status: Chronic (10) COPD (chronic obstructive pulmonary disease): Qualifiers: COPD type: unspecified COPD Qualified Code(s): J44.9 - Chronic obstructive pulmonary disease, unspecified Code(s): J44.9 - Chronic obstructive pulmonary disease, unspecified Status: Chronic (11) CVA (cerebral vascular accident): Code(s): I63.9 - Cerebral infarction, unspecified Status: Chronic Plan Continue with current medications Continue cardiopulmonary monitoring Patient's cardiac enzymes jumped to 2.53 this morning consistent with non ST elevated OR Immediate cardiac consult was given who came and evaluated the patient and started him on IV heparin drip as per ACS protocol Keep patient NPO after midnight except meds Cardiology planned to take the patient for cardiac catheterization in a.m. Continue with IV Rocephin and Zithromax for pneumonia Follow-up on blood and sputum cultures ? Patient seen and examined at bedside during my morning rounds ? Collaborated with patient's nurse at the bedside in detail and addressed all concerns ? Labs, electrolytes, radiology, investigations and test results reviewed ? Consult/Nursing/Ancilliary notes on the chart reviewed and appreciated ? Spoke with patient/family at the bedside and answered all the questions that they had Repeat labs in a.m. Electrolyte replacement as per protocol. Patient will be monitored very closely on the floor. Further recommendations as per the hospital course. Subjective Date/time seen: 02/05/23 19:28 Interval history: Patient with persistent medial greater chest pain with radiation to neck jaw and left arm. Troponin is remain elevated. Patient is diagnosed with non ST elevated OR and started on IV heparin drip. Cardiology planned cardiac catheterization in am. Review of Systems Review of Sy
[2023-02-05 20:07] LABS: Glucose Point of Care 183 mg/dl (65-105)
[2023-02-05] MEDS: ALPRAZolam (*CRX) 0.25 MG TABLET PO (21:44)
[2023-02-05] MEDS: ATORVASTATIN 40 MG TABLET 80 MG PO (21:44)
[2023-02-05] MEDS: DOXAZOSIN MESYLATE 2 MG TABLET PO (21:45)
[2023-02-06] VITALS (30 sets, daily range): BP systolic 110–144; BP diastolic 57–97; PULSE 70–85; RESP 16–22; TEMP 36.1–36.6; O2SAT 92–97
[2023-02-06 00:11] LABS: Partial Thromboplastin Time 43.9 SECONDS (22.3-36.8)
[2023-02-06] MEDS: HEPARIN SODIUM 5,000 UNITS/ML VIAL 4000 UNITS IV PUSH ×2 (00:30→07:45)
--- NOTE | 2023-02-06 00:30 | PC.NURSE ---
Heparin gtt running at 12ml/hr as reported by karlo YOON. However, gtt was scanned in at 10ml/hr on emar. Midnight ptt called for gtt to be increased by 4ml/hr so gtt was increased to 16ml/hr.
[2023-02-06] MEDS: cefTRIAXone 2 GM/NS 100 ML 2 GM/100 ML BAG IVPB (04:01)
[2023-02-06] MEDS: AZITHROMYCIN 500 MG/NS 250 ML 500 MG/250 ML BAG 250 MG IVPB (04:01)
[2023-02-06 07:15] LABS: Basophils Percent Auto 0.3 % (0.2-1.2); Eosinophils Absolute Auto 0.2 K/mm3 (0-0.3); Eosinophils Percent Auto 2.4 % (0-4.4); Hematocrit 38.5 % (42.0-52.0); Hemoglobin 13.1 g/dL (14.0-18.0); Immature Granulocyte Absolute 0.04 K/mm3 (0.00-0.031); Immature Granulocyte Percent A 0.6 % (0-0.5); Immature Platelet Fraction Pct 8.4 % (0.9-11.2); Lymphocytes Absolute Auto 1.37 K/mm3 (0.9-3.2); Lymphocytes Percent Auto 19.6 % (18.3-44.2); Mean Corpuscular Hemoglobin 30.5 pg (26-34); Mean Corpuscular Volume 89.7 fl (80-100); Monocytes Absolute Auto 0.7 K/mm3 (0.1-0.6); Monocytes Percent Auto 9.6 % (2.6-8.5); Neutrophils Absolute Auto 4.7 K/mm3 (1.3-6.7); Neutrophils Percent Auto 67.5 % (45.5-73.1); Platelet Count Result 120 k/mm3 (150-375); Red Blood Count 4.29 M/mm3 (4.6-6.20); Red Cell Distribution Width 13.3 % (11.5-14.5)
[2023-02-06 07:26] LABS: Anion Gap 9 mmol/L (8-16); Blood Urea Nitrogen 17 mg/dL (9-20); Calcium 8.9 mg/dL (8.4-10.2); Carbon Dioxide 23 mmol/L (22-30); Chloride 103 mmol/L (98-107); Cholesterol 99 mg/dL (0-200); Estimated CRCL calculation 90 ml/min; Estimated Glomerular Filt Rate > 60; Glucose 165 mg/dL (65-110); Potassium 4.4 mmol/L (3.4-5.0); Sodium 135 mmol/L (137-145)
[2023-02-06 07:33] LABS: Partial Thromboplastin Time 58.1 SECONDS (22.3-36.8)
[2023-02-06 07:38] LABS: NT Pro B Type Natriuretic Pept 72 pg/mL (19.9-100)
[2023-02-06] MEDS: LORATADINE 10 MG TABLET PO (08:00)
[2023-02-06] MEDS: amLODIPine BESYLATE 5 MG TABLET 10 MG PO (08:00)
[2023-02-06] MEDS: carvediloL 25 MG TABLET PO ×2 (08:00→21:29)
[2023-02-06] MEDS: LOSARTAN POTASSIUM 100 MG TABLET PO (08:00)
[2023-02-06] MEDS: SODIUM CHLORIDE 0.9% IV 500 ML 100 ML IV CONT (08:00)
[2023-02-06] MEDS: ISOSORBIDE MONONITRATE 60 MG TAB.ER.24H 120 MG PO (08:00)
[2023-02-06] MEDS: PANTOPRAZOLE 40 MG TABLET PO ×2 (08:00→21:29)
[2023-02-06] MEDS: NITROGLYCERIN 0.4 MG/HR PATCH 1 PATCH TRANSDERM (08:00)
[2023-02-06] MEDS: ASPIRIN 81 MG CHEWABLE TABLET PO (08:00)
[2023-02-06] MEDS: buPROPion HCL SR (12 HR) 150 MG TAB PO ×2 (08:00→21:29)
[2023-02-06 08:14] LABS: Glucose Point of Care 175 mg/dl (65-105)
--- NOTE | 2023-02-06 08:54 | WPDMODSED ---
Moderate Sedation Note-Pt Data Patient Data Diagnosis: Coronary artery disease with previous PCI Chest pain/troponin elevation Present Complaint: No complaints Procedure to be performed/Plan: Left heart catheterization Allergies Allergy/AdvReac Type Severity Reaction Status Date / Time No Known Allergies Allergy Unknown Verified 01/24/23 18:40 Home Medications Medication Instructions Recorded Confirmed Type amlodipine 10 mg tablet 10 mg PO DAILY 01/24/19 02/04/23 History bupropion HCl 150 mg tablet,12 hr 150 mg PO BID 01/24/19 02/04/23 History sustained-release (Wellbutrin SR) doxazosin 2 mg tablet (Cardura) 2 mg PO HS 01/24/19 02/04/23 History dulaglutide 1.5 mg/0.5 mL 1.5 mg subcut WEEKLY 01/24/19 02/04/23 History subcutaneous pen injector (Trulicity) metformin 1,000 mg tablet 1,000 mg PO BID 01/24/19 02/04/23 History rivaroxaban 2.5 mg tablet (Xarelto) 2.5 mg PO BID 01/24/19 02/04/23 History omeprazole 40 mg capsule,delayed 40 mg PO DAILY 04/13/19 02/04/23 History release carvedilol 25 mg tablet (Coreg) 25 mg PO BID 04/28/19 02/04/23 History atorvastatin 40 mg tablet 80 mg PO HS 05/16/19 02/04/23 History albuterol sulfate 90 mcg/actuation 2 puff inhalation Q4-6H PRN 01/09/20 02/04/23 History aerosol inhaler (Ventolin HFA) Shortness Of Breath isosorbide mononitrate 60 mg 120 mg PO DAILY 01/09/20 02/04/23 History tablet,extended release 24 hr loratadine 10 mg tablet (Claritin) 10 mg PO DAILY 03/15/20 02/04/23 History alprazolam 0.25 mg tablet 0.25 mg PO HS 08/21/21 02/04/23 History aspirin 81 mg chewable tablet 81 mg PO DAILY 09/29/21 02/04/23 History (Children's Aspirin) losartan 100 mg tablet 100 mg PO DAILY 01/17/22 02/04/23 History ondansetron 4 mg disintegrating 4 mg PO Q8H PRN nausea and 02/13/22 02/04/23 Rx tablet vomiting #10 tabs mupirocin 2 % topical ointment 1 applic topical BID #22 grams 09/26/22 02/04/23 Rx oxycodone-acetaminophen 5 mg-325 1 tablet PO Q6H PRN pain 3 days 10/17/22 02/04/23 Rx mg tablet (Percocet) #12 tabs methocarbamol 750 mg tablet 750 mg PO TID PRN back spasm #20 10/31/22 02/04/23 Rx tabs Current Medications: Active Medications Albuterol (Albuterol Sulfate (*Sp) Aerosol 1 Puff) 2 puff INHALATION Q4-6H PRN PRN Reason: Shortness Of Breath Alprazolam (Alprazolam (*Crx) 0.25 Mg Tablet) 0.25 mg PO [facility] Last Admin: 02/05/23 21:44 Dose: 0.25 mg Amlodipine Besylate (Amlodipine Besylate 5 Mg Tablet) 10 mg PO DAILY [facility] Last Admin: 02/05/23 08:35 Dose: 10 mg Aspirin (Aspirin 81 Mg Chewable Tablet) 81 mg PO DAILY [facility] Last Admin: 02/05/23 08:36 Dose: 81 mg Atorvastatin Calcium (Atorvastatin 40 Mg Tablet) 80 mg PO HS [facility] Last Admin: 02/05/23 21:44 Dose: 80 mg Benzocaine (Benzocaine/Menthol (*Bkc) 18 Ea Lozenge) 1 lozenge PO PRN PRN PRN Reason: Sore Throat Bupropion HCl (Bupropion Hcl Sr (12 Hr) 150 Mg Tab) 150 mg PO Q12HR [facility] Last Admin: 02/05/23 21:44 Dose: 150 mg Carvedilol (Carvedilol 25 Mg Tablet) 25 mg PO Q12HR [facility] Last Admin: 02/05/23 21:44 Dose: 25 mg Dextrose (Dextrose 50% 25 Gm/50 Ml Syringe) 12.5 gm IV PUSH PRN PRN; Protocol PRN Reason: Hypoglycemia Doxazosin Mesylate (Doxazosin Mesylate 2 Mg Tablet) 2 mg PO HS [facility] Last Admin: 02/05/23 21:45 Dose: 2 mg Glucagon (Glucagon For Inj 1 Mg Vial) 1 mg IM PRN PRN; Protocol PRN Reason: Hypoglycemia Glucose (Glucose Oral Gel 15 Gm Of Glucse In 37.5 Gm Tube) 15 gm PO PRN PRN; Protocol PRN Reason: Hypoglycemia Heparin Sodium (Porcine) (Heparin Sodium 5,000 Units/Ml Vial) 4,000 units IV PUSH PRN PRN PRN Reason: aPTT less than 55 seconds Last Admin: 02/06/23 00:30 Dose: 4,000 units Heparin Sodium (Porcine) (Heparin Sodium 5,000 Units/Ml Vial) 4,000 units IV PUSH PRN PRN PRN Reason: aPTT 55 - 70 seconds Ceftriaxone Sodium (Rocephin 2 Gm/Ns 100 Ml) 2 gm in 100 mls @ 200 mls/hr IVPB Q24H [facility] Last Infusion: 02/06/23 04:31 Dose: Infused Azithromycin (Zithromax)
--- NOTE | 2023-02-06 09:00 | PM.IMPN ---
Progress Note: A&P Assessment and Plan (1) Cough: Code(s): R05.9 - Cough, unspecified Status: Acute (2) Coronary artery disease: Qualifiers: Coronary Disease-Associated Artery/Lesion type: [place] artery [place] vs. transplanted heart: [place] heart Associated angina: with other forms of angina Qualified Code(s): I25.118 - Atherosclerotic heart disease of [place] coronary artery with other forms of angina pectoris Code(s): I25.10 - Atherosclerotic heart disease of [place] coronary artery without angina pectoris Status: Acute (3) NSTEMI (non-ST elevated myocardial infarction): Code(s): I21.4 - Non-ST elevation (NSTEMI) myocardial infarction Status: Acute (4) Chest pain: Qualifiers: Chest pain type: unspecified Qualified Code(s): R07.9 - Chest pain, unspecified Code(s): R07.9 - Chest pain, unspecified Status: Acute Plan 62M w/ PMH DM, morbid obesity, COPD, CAD s/p 2 stents, GERD, hx of CVA w/o residual deficits, HFpEF, HTN, HLD presents with chest pain and cough. Admitted on 02/04 # NSTEMI - chest pain resolved. holding xarelto. heparin gtt, aspirin, statin. cath today # cough - pulmonary edema vs pneumonia seen on CXR. treat with 5 days of ceftriaxone and azithromycin - covid rsv flu negative # hx of CVA - restart xarelto when ok with cardiology # HFpEF - has been off of lasix for some time now 2/2 dehydration. compensated. CPM FEN: IVF GI prophylaxis: protonix DVT prophylaxis: heparin GTT Lines: pIV Code Status: full code Dispo: stable. cath today More than 25 minutes spent on chart review, patient interaction and assessment and plan. Subjective Date/time seen: 02/06/23 09:00 Interval history: NAOE. pt denies chest pain, SOB. Review of Systems Review of Systems: All systems reviewed & are unremarkable except as noted in HPI and below Exam Const: General: comfortable Other: obese Eyes: Pupils: Equal, round and reactive pupils present Resp: Effort & Inspection: normal respiratory effort Auscultation: crackles (mild, diffuse) Cardio: Rate: regular rate Rhythm: regular rhythm Heart sounds: no gallops, no murmurs and no rubs GI: GI Palp: Yes Soft to palpation Extrem: General: edema (trace) Objective Data Vital Signs Vital Signs: Vital Signs - 24 hr 02/05/23 10:00 02/05/23 12:00 02/05/23 12:00 Temperature 96.8 F L Pulse Rate 83 111 H Respiratory Rate 18 Blood Pressure 112/71 Pulse Oximetry 96 Oxygen Delivery Room Air 02/05/23 12:00 02/05/23 14:00 02/05/23 16:00 Temperature 96.8 F L Pulse Rate 83 78 74 Respiratory Rate 24 H Blood Pressure 136/70 Pulse Oximetry 95 Oxygen Delivery 02/05/23 16:00 02/05/23 16:00 02/05/23 18:00 Temperature Pulse Rate 75 74 Respiratory Rate Blood Pressure Pulse Oximetry Oxygen Delivery Room Air 02/05/23 19:52 02/05/23 21:44 02/05/23 20:00 Temperature 97.3 F L Pulse Rate 79 80 Respiratory Rate 18 Blood Pressure 104/64 Pulse Oximetry 95 Oxygen Delivery Room Air 02/05/23 20:00 02/05/23 23:58 02/05/23 22:00 Temperature 97.5 F L Pulse Rate 75 73 75 Respiratory Rate 20 Blood Pressure 111/50 L Pulse Oximetry 96 Oxygen Delivery 02/06/23 00:00 02/06/23 00:00 02/06/23 03:53 Temperature 97 F L Pulse Rate 72 77 Respiratory Rate 20 Blood Pressure 119/57 L Pulse Oximetry 97 Oxygen Delivery Room Air 02/06/23 02:00 02/06/23 04:00 02/06/23 04:00 Temperature Pulse Rate 79 70 Respiratory Rate Blood Pressure Pulse Oximetry Oxygen Delivery Room Air 02/06/23 06:00 02/06/23 07:48 Temperature 97.5 F L Pulse Rate 72 75 Respiratory Rate 18 Blood Pressure 121/72 Pulse Oximetry 97 Oxygen Delivery Intake/Output Intake/Output: Intake & Output 02/03/23 02/04/23 02/05/23 02/06/23 23:59 23:59 23:59 23:59 Intake Total 1870 650 Output Total 4
[2023-02-06] MEDS: HEPARIN SOD/D5W 100 UNITS/ML 25,000 UNITS/250 ML BAG 18 UNITS IV CONT (10:12)
--- NOTE | 2023-02-06 10:23 | PCCPR ---
Spoke with Vini regarding posibility or interest in [facility]. He expressed interest and is hopeful to start soon. Vini is a former participant and is eager to start.
--- NOTE | 2023-02-06 10:39 | PC.NURSE ---
Patient transported per cardiac cath team to cardiac phlebotomist medical lab assistant at 1039. Patient to remain under care of phlebotomist medical lab assistant team at this time.
--- NOTE | 2023-02-06 11:18 | WPDCARDPROC ---
Cardiac Cath Procedure Note Date of procedure:: 02/06/23 Performing physician:: Todd Kwan MD Indication:: acute coronary syndrome Brief clinical history:: this is a 62-year-old man known to have coronary disease with previous stenting to the left anterior descending as well as to the mid circumflex. He is known to have small vessel disease as well. He entered the hospital with the chest pain event and a small troponin rise. In this setting follow-up angiography has been recommended. Procedure Procedure performed:: Left ventriculogram coronary angiogram Sedation/Medication given:: fentanyl 50 mg Versed 2 mg case start time 10:55 a.m. case end time 11:11 a.m. sedation provided by Sunita Huber RN, trained observer Access site:: right femoral artery Estimated blood loss:: 20 cc Procedure note:: patient was brought to the cardiac catheterization lab in the postabsorptive state where the right femoral triangle was prepared and draped in the normal fashion. Anesthesia was provided with 1% lidocaine infiltrated locally. Using the modified Seldinger technique a 5 [place] sheath was placed into the right common femoral artery after this left heart catheterization was carried out. I used a 5 [place] angled pigtail catheter to measure left-sided hemodynamics and to inject LV g in the 30 degree WHITE[place] projection. Following this the left coronary artery was engaged and injected using a 5 [place] FL4 catheter. The right coronary was engaged and injected using a standard 5 [place] JR4 catheter. The cineangiograms were then reviewed and the case was terminated. I did perform an angiogram of the femoral artery through the sheath after which I elected to have the sheath with direct manual compression. The procedure was well tolerated and uncomplicated. There were no signs of groin hematoma when he left the cardiac catheterization lab. Findings:: Hemodynamics: Central aortic pressure is 146 over 80 left ventricle 136/5 end-diastolic pressure 22 there is no gradient on pullback across the aortic valve. Left ventricle: The LV is normal in size all segments contract appropriately the global ejection fraction I visually estimate to be 65%. The left main coronary artery is short but patent the left anterior descending is a medium caliber artery extending down to the apex. There is visible stent material in the proximal LAD. The LAD is branches are otherwise nicely patent. There are no significant flow-limiting lesions identified. The circumflex is a medium caliber vessel the 1st 2 marginal branches are exceedingly small as they were seen angiographically last year. The 1st of these takes off is a ramus intermedius branch and is totally occluded in the midportion. This is new in comparison to angiography from 2021. The remainder of the trunk of the circumflex into the posterior branch remains nicely patent previously deployed stent in the mid circumflex remains nicely patent right coronary artery is moderate in caliber and is dominant to the posterior circulation. There are mild diffuse luminal irregularities in the RCA system but no flow-limiting disease is seen. Conclusion:: 1. Right coronary dominant circulation with overall good revascularization with previously deployed stents in the LAD and circumflex remaining patent. 2. Acute coronary syndrome / non ST elevation [place] appears to be due to occlusion of a very tiny 1st OM 1 branch that arises at a tiny ramus intermedius which was patent in 2021 and has become occluded. This is a tiny vessel no more than 1 mm in diameter and of course not suitable for PCI 3. vigorous left ventricular systolic function Todd Kwan MD [facility]
[2023-02-06] MEDS: oxyCODONE/ACETAMINOPHEN (*CRX) 5-325 MG TABLET 1 TABLET PO (13:06)
[2023-02-06] MEDS: SODIUM CHLORIDE 0.9% IV 1,000 ML 125 ML IV CONT (13:20)
[2023-02-06 13:37] LABS: Glucose Point of Care 122 mg/dl (65-105)
--- NOTE | 2023-02-06 13:50 | PC.NURSE ---
Patient returned to IMU room 211 from cardiac labeling associate at 1315. Bedside report received. Groin site assessed and pedal pulses equal and palpable. RN to continue to monitor.
[2023-02-06 16:15] LABS: Glucose Point of Care 210 mg/dl (65-105)
[2023-02-06] MEDS: INSULIN ASPART (*BKC) 100 UNITS/ML SUB-Q (17:07)
[2023-02-06 20:03] LABS: Glucose Point of Care 217 mg/dl (65-105)
[2023-02-06] MEDS: DOXAZOSIN MESYLATE 2 MG TABLET PO (21:29)
[2023-02-06] MEDS: ATORVASTATIN 40 MG TABLET 80 MG PO (21:29)
[2023-02-06] MEDS: ALPRAZolam (*CRX) 0.25 MG TABLET PO (21:29)
[2023-02-07] VITALS (9 sets, daily range): BP systolic 122–139; BP diastolic 76–92; PULSE 70–82; RESP 16–24; TEMP 36.2–36.7; O2SAT 96–97
[2023-02-07] MEDS: AZITHROMYCIN 500 MG/NS 250 ML 500 MG/250 ML BAG 250 MG IVPB (03:56)
[2023-02-07] MEDS: cefTRIAXone 2 GM/NS 100 ML 2 GM/100 ML BAG IVPB (03:57)
[2023-02-07 05:23] LABS: Basophils Percent Auto 0.2 % (0.2-1.2); Eosinophils Absolute Auto 0.2 K/mm3 (0-0.3); Eosinophils Percent Auto 2.3 % (0-4.4); Hematocrit 39.1 % (42.0-52.0); Immature Granulocyte Absolute 0.02 K/mm3 (0.00-0.031); Immature Granulocyte Percent A 0.3 % (0-0.5); Immature Platelet Fraction Pct 8.4 % (0.9-11.2); Lymphocytes Percent Auto 15.2 % (18.3-44.2); Mean Corpuscular HGB Conc 33.2 g/dl (32-36); Mean Corpuscular Hemoglobin 30.1 pg (26-34); Mean Corpuscular Volume 90.5 fl (80-100); Mean Platelet Volume 11.6 fl (7.4-10.4); Monocytes Absolute Auto 0.6 K/mm3 (0.1-0.6); Monocytes Percent Auto 9.1 % (2.6-8.5); Neutrophils Absolute Auto 4.8 K/mm3 (1.3-6.7); Neutrophils Percent Auto 72.9 % (45.5-73.1); Platelet Count Result 105 k/mm3 (150-375); Red Blood Count 4.32 M/mm3 (4.6-6.20); Red Cell Distribution Width 13.2 % (11.5-14.5); White Blood Count 6.6 K/mm3 (4.5-10.0)
[2023-02-07 05:34] LABS: Anion Gap 9 mmol/L (8-16); Blood Urea Nitrogen 14 mg/dL (9-20); Carbon Dioxide 22 mmol/L (22-30); Chloride 103 mmol/L (98-107); Estimated CRCL calculation 99 ml/min; Estimated Glomerular Filt Rate > 60; Glucose 187 mg/dL (65-110); Potassium 4.1 mmol/L (3.4-5.0); Sodium 134 mmol/L (137-145)
[2023-02-07 07:46] LABS: Glucose Point of Care 171 mg/dl (65-105)
[2023-02-07] MEDS: LOSARTAN POTASSIUM 100 MG TABLET PO (09:14)
[2023-02-07] MEDS: carvediloL 25 MG TABLET PO (09:14)
[2023-02-07] MEDS: ISOSORBIDE MONONITRATE 60 MG TAB.ER.24H 120 MG PO (09:14)
[2023-02-07] MEDS: LORATADINE 10 MG TABLET PO (09:14)
[2023-02-07] MEDS: buPROPion HCL SR (12 HR) 150 MG TAB PO (09:14)
[2023-02-07] MEDS: ASPIRIN 81 MG CHEWABLE TABLET PO (09:14)
[2023-02-07] MEDS: PANTOPRAZOLE 40 MG TABLET PO (09:14)
[2023-02-07] MEDS: amLODIPine BESYLATE 5 MG TABLET 10 MG PO (09:15)
--- NOTE | 2023-02-07 11:25 | PM.PNCARD ---
Progress Note: A&P Assessment and Plan (1) NSTEMI (non-ST elevated myocardial infarction): Code(s): I21.4 - Non-ST elevation (NSTEMI) myocardial infarction Status: Acute Assessment and Plan: Patient had coronary angiogram which showed patent previously placed stents and occlusive disease in OM, not amenable for PCI. LVEF normal. chest pain has resolved. -continue antiplatelet treatment with aspirin. Patient is on low-dose rivaroxaban which can be continued. Continue high-dose statin. [place] LDL less than 55. Management as an outpatient. (2) Coronary artery disease: Qualifiers: Coronary Disease-Associated Artery/Lesion type: [place] artery [place] vs. transplanted heart: [place] heart Associated angina: with other forms of angina Qualified Code(s): I25.118 - Atherosclerotic heart disease of [place] coronary artery with other forms of angina pectoris Code(s): I25.10 - Atherosclerotic heart disease of [place] coronary artery without angina pectoris Status: Acute Assessment and Plan: Chest pain has resolved. Antiplatelet treatment, statin. Continue beta-krystal. Okay to discharge home from cardiac standpoint. Outpatient follow-up with primary acetylene gas compressor-Dr. Willoughby. Subjective Date/time seen: 02/07/23 11:25 Interval history: Date of service: 02/07/2023 Interval history: At the time of evaluation, patient was sitting up in the chair eating lunch. He reported resolution of chest pain. No shortness of breath. Patient is eager to go home. Patient had a coronary angiogram which showed patent previously placed stents; and small vessel occlusive disease not amenable for PCI. Continued on medical treatment. Exam Narrative: PHYSICAL EXAMINATION: GENERAL: Obese, alert, oriented, no acute distress MENTAL STATUS: affect appropriate to mood EYES: Extraocular movements intact, no pallor EARS: External ears appear normal, hearing grossly normal NOSE: Normal and patent, no discharge MOUTH: Mucous membranes moist, tongue normal NECK: Supple, no JVD CHEST: Good respiratory effort, clear to auscultation HEART: Normal rate, regular rhythm, normal S1 and S2 ABDOMEN: Soft, obese NEUROLOGICAL: Alert, oriented, normal speech, no gross motor deficits MUSCULOSKELETAL: No major deformity, no amputation EXTREMITIES: pedal edema, no clubbing, no cyanosis SKIN: no rash on the exposed area, no cyanosis PSYCHIATRIC: Normal mood, appropriate affect Objective Data Vital Signs Vital Signs: Vital Signs - 24 hr 02/06/23 11:30 02/06/23 11:45 02/06/23 11:50 Temperature Pulse Rate 72 70 71 Respiratory Rate 22 H 17 19 Blood Pressure 117/97 H 119/72 126/73 Pulse Oximetry 94 93 93 Oxygen Delivery Room Air Room Air Room Air 02/06/23 11:40 02/06/23 11:55 02/06/23 12:00 Temperature Pulse Rate 71 72 72 Respiratory Rate 20 22 H 18 Blood Pressure 124/78 124/77 117/75 Pulse Oximetry 94 92 95 Oxygen Delivery Room Air Room Air Room Air 02/06/23 12:15 02/06/23 12:30 02/06/23 12:45 Temperature Pulse Rate 72 70 75 Respiratory Rate 18 16 16 Blood Pressure 126/84 132/82 125/81 Pulse Oximetry 95 94 92 Oxygen Delivery Room Air Room Air Room Air 02/06/23 13:00 02/06/23 13:15 02/06/23 13:30 Temperature 36.6 C 36.2 C L Pulse Rate 72 73 74 Respiratory Rate 21 H 18 18 Blood Pressure 130/81 127/79 126/74 Pulse Oximetry 97 97 96 Oxygen Delivery Room Air 02/06/23 16:03 02/06/23 16:00 02/06/23 14:00 Temperature 36.6 C 36.4 C L Pulse Rate 77 74 Respiratory Rate 20 16 Blood Pressure 110/68 130/74 Pulse Oximetry 96 95 96 Oxygen Delivery Room Air 02/06/23 15:00 02/06/23 14:00 02/06/23 12:00 Temperature 36.4 C Pulse Rate 78 76 Respiratory Rate 18 Blood Pressure 143/77 H Pulse Oximetry 95 Oxygen Delivery Room Air 02/06/23 16:00 02/06/23 18:00 02/06/23 19:49 Temperature 36.3 C L Pulse Rate 77 77 Respiratory Rate 20 Bl
[2023-02-07 11:30] LABS: Glucose Point of Care 178 mg/dl (65-105)
--- NOTE | 2023-02-07 11:55 | PM.DS ---
DS: Admitting Diagnosis Discharge Date 02/07/23 Admitting Diagnosis chest pain, cough DS: Discharge Diagnosis Discharge Diagnosis (1) Cough: Code(s): R05.9 - Cough, unspecified Status: Acute (2) Coronary artery disease: Qualifiers: Coronary Disease-Associated Artery/Lesion type: [place] artery [place] vs. transplanted heart: [place] heart Associated angina: with other forms of angina Qualified Code(s): I25.118 - Atherosclerotic heart disease of [place] coronary artery with other forms of angina pectoris Code(s): I25.10 - Atherosclerotic heart disease of [place] coronary artery without angina pectoris Status: Acute (3) NSTEMI (non-ST elevated myocardial infarction): Code(s): I21.4 - Non-ST elevation (NSTEMI) myocardial infarction Status: Acute (4) Community acquired bacterial pneumonia: Code(s): J15.9 - Unspecified bacterial pneumonia Status: Acute DS: Summary Hospital Course Hospital Course: 62M w/ PMH NIDDM, morbid obesity, COPD, CAD s/p 2 stents, GERD, hx of CVA w/o residual deficits, HFpEF, HTN, HLD presents with chest pain and cough. dx w/ NSTEMI, troponins downtrended and chest pain resolved. he underwent cardiac cath with the following findings: 1.? ? Right coronary dominant circulation with overall good revascularization with previously deployed stents in the LAD and circumflex remaining patent. 2.? ? Acute coronary syndrome / non ST elevation [place] appears to be due to occlusion of a very tiny 1st OM 1 branch that arises at a tiny ramus intermedius which was patent in 2021 and has become occluded.? This is a tiny vessel no more than 1 mm in diameter and of course not suitable for PCI 3. ? vigorous left ventricular systolic function Cardiology advised he continue his high dose statin, plavix, eliquis, and beta krystal and follow up with his primary epic kaleidoscope analyst Dr. Willoughby. Pt also treated with ceftriaxone and azithromycin for suspected community acquired pneumonia. On day of discharge 02/07 he is stable and improved, reporting he can now take deep breaths without coughing. He will take augmentin for another 3 days to complete a 5 day course. Pt was full code during his admission. More than 30 minutes spent on discharge planning and documentation. Time Spent with Patient Time attestation: Total time spent providing and/or coordinating discharge services: Exam Const: General: cooperative and no acute distress Resp: Effort & Inspection: normal respiratory effort Auscultation: clear to auscultation bilaterally Cardio: Rate: regular rate Rhythm: regular rhythm Heart sounds: S1 normal heart sound present and S2 normal heart sound present GI: GI Palp: No abdominal tenderness Auscultation: normal bowel sounds DS: Data Data Completed and Pending Labs on day of discharge: Labs from last 24 hours 02/07/23 02/07/23 02/07/23 11:27 07:41 04:58 WBC 6.6 RBC 4.32 L Hgb 13.0 L Hct 39.1 L MCV 90.5 MCH 30.1 MCHC 33.2 RDW 13.2 Plt Count 105 L MPV 11.6 H Immature Gran % (Auto) 0.3 Neut % (Auto) 72.9 Lymph % (Auto) 15.2 L [place] % (Auto) 9.1 H Eos % (Auto) 2.3 Baso % (Auto) 0.2 Lymph # (Auto) 1.00 [place] # (Auto) 0.6 Eos # (Auto) 0.2 Baso # (Auto) 0.0 Abs Immat Gran (auto) 0.02 Absolute Neuts (auto) 4.8 Absolute Nucleated RBC 0.0 Nucleated RBC % 0.0 % Immature Plt Fraction 8.4 Sodium 134 L Potassium 4.1 Chloride 103 Carbon Dioxide 22 Anion Gap 9 BUN 14 Creatinine 1.00 Estim Creat Clear Calc 99 Estimated GFR > 60 Glucose 187 H POC Capillary Glucose 178 H 171 H Calcium 9.0 02/06/23 02/06/23 02/06/23 19:52 15:44 13:24 WBC RBC Hgb Hct MCV MCH MCHC RDW Plt Count MPV Immature Gran % (Auto) Neut % (Auto) Lymph % (Auto) [place] % (Auto) Eos % (Auto) Baso % (Auto) Lymph # (Auto)
== END 2023-02-07 13:02 | disposition home or self-care (01) | DRG 280 ==
LOC: ANHED 18:50 → ANHIMU 20:21
PROVIDERS: Emergency Medicine; Internal Medicine Cardiovascular Disease; Specialist; Admitting Provider Family Medicine; Emergency Provider Physician Assistant; PCP Registered Nurse; Visit Provider General Practice
PROC: 4A023N7 Measurement of Cardiac Sampling and Pressure, Left Heart, Percutaneous Approach (ICD-10-PCS; CPT 93452; principal; 2023-02-06 11:00)
DX: I21.4 Non-ST elevation (NSTEMI) myocardial infarction (principal); J18.9 Pneumonia, unspecified organism; I50.32 Chronic diastolic (congestive) heart failure; Z68.41 Body mass index [BMI] 40.0-44.9, adult; E66.01 Morbid (severe) obesity due to excess calories; E78.5 Hyperlipidemia, unspecified; E11.42 Type 2 diabetes mellitus with diabetic polyneuropathy; E11.51 Type 2 diabetes mellitus with diabetic peripheral angiopathy without gangrene; E11.65 Type 2 diabetes mellitus with hyperglycemia; F17.210 Nicotine dependence, cigarettes, uncomplicated; F32.A Depression, unspecified; G47.33 Obstructive sleep apnea (adult) (pediatric); I25.10 Atherosclerotic heart disease of native coronary artery without angina pectoris; I11.0 Hypertensive heart disease with heart failure; I25.2 Old myocardial infarction; J43.9 Emphysema, unspecified; K21.9 Gastro-esophageal reflux disease without esophagitis; R91.8 Other nonspecific abnormal finding of lung field; Z95.5 Presence of coronary angioplasty implant and graft; Z79.01 Long term (current) use of anticoagulants; Z79.84 Long term (current) use of oral hypoglycemic drugs; Z79.82 Long term (current) use of aspirin; Z79.85 Long-term (current) use of injectable non-insulin antidiabetic drugs; Z86.16 Personal history of COVID-19; Z86.718 Personal history of other venous thrombosis and embolism; Z99.89 Dependence on other enabling machines and devices; Z86.73 Personal history of transient ischemic attack (TIA), and cerebral infarction without residual deficits; Z90.49 Acquired absence of other specified parts of digestive tract; Z20.822 Contact with and (suspected) exposure to COVID-19
CPT/HCPCS: 36415; 71046; 80048; 80053; 82465; 82948; 83690; 83735; 83880; 84100; 84484; 85025; 85055; 85610; 85730; 87040; 87637; 93005; 93458; 96365; 96366; 96367; 96375; 96376; 99285; A9270; C1887; C1894; C9113; G0378; J0456; J0696; J1644; J1815; J2250; J2270; J2405; J3010; J7030; J7040

== ENCOUNTER 2023-02-22 20:17 | Emergency (ER) | payer MEDICARE, MEDICAID, SELFPAY ==
--- NOTE | ~2023-02-22 | XR_ITS ---
[XR ribs LT 2V w CXR 2V ] INDICATION: Left rib pain after cough TECHNIQUE: Frontal projection of the upper left ribs, frontal projection of the lower left ribs, obli que projection of all the left ribs, frontal inspiratory chest x-ray for interpretation. FINDINGS: There are no displaced rib fractures identified. There are no soft tissue abnormality see n. The lungs are clear. There is a healed left third rib fracture. There is polyarticular osteoarth ritis of the left shoulder. IMPRESSION: 1:No acute displaced rib fractures. Reviewed, dictated and finalized at location A. WELL FISHING TOOL OPERATOR
[2023-02-22 20:26] VITALS: BP 179/83; PULSE 96; RESP 19; TEMP 36.3; O2SAT 99
--- NOTE | 2023-02-22 21:30 | ED.GENADULT ---
HPI - General Adult General Chief complaint: Unspecified Stated complaint: covdi-19+, L rib pain Time Seen by Provider: 02/22/23 20:38 Source: patient Mode of arrival: ambulatory Limitations: no limitations History of Present Illness HPI narrative: This is a 62 year old male that presents to the ER for left sided rib pain. Reports he sneezed and has had rib pain since. Reports worse with movement and coughing. He is currently COVID +. He has seen his PCP for this. Report mild symptoms. He has had a cough, headache and rhinorrhea. Denies fevers or shortness of breath. Related Data Home Medications Medication Instructions Recorded Confirmed amlodipine 10 mg tablet 10 mg PO DAILY 01/24/19 02/04/23 bupropion HCl 150 mg tablet,12 hr 150 mg PO BID 01/24/19 02/04/23 sustained-release (Wellbutrin SR) doxazosin 2 mg tablet (Cardura) 2 mg PO HS 01/24/19 02/04/23 dulaglutide 1.5 mg/0.5 mL 1.5 mg subcut WEEKLY 01/24/19 02/04/23 subcutaneous pen injector (Trulicity) metformin 1,000 mg tablet 1,000 mg PO BID 01/24/19 02/04/23 rivaroxaban 2.5 mg tablet (Xarelto) 2.5 mg PO BID 01/24/19 02/04/23 omeprazole 40 mg capsule,delayed 40 mg PO DAILY 04/13/19 02/04/23 release carvedilol 25 mg tablet (Coreg) 25 mg PO BID 04/28/19 02/04/23 atorvastatin 40 mg tablet 80 mg PO HS 05/16/19 02/04/23 albuterol sulfate 90 mcg/actuation 2 puff inhalation Q4-6H PRN 01/09/20 02/04/23 aerosol inhaler (Ventolin HFA) Shortness Of Breath isosorbide mononitrate 60 mg 120 mg PO DAILY 01/09/20 02/04/23 tablet,extended release 24 hr loratadine 10 mg tablet (Claritin) 10 mg PO DAILY 03/15/20 02/04/23 alprazolam 0.25 mg tablet 0.25 mg PO HS 08/21/21 02/04/23 aspirin 81 mg chewable tablet 81 mg PO DAILY 09/29/21 02/04/23 (Children's Aspirin) losartan 100 mg tablet 100 mg PO DAILY 01/17/22 02/04/23 Allergies Allergy/AdvReac Type Severity Reaction Status Date / Time No Known Allergies Allergy Unknown Verified 02/22/23 20:29 Review of Systems Review of Systems: CONSTITUTIONAL: Denies fever ENT: Reports rhinorrhea, congestion CARDIOVASCULAR: Reports rib pain RESPIRATORY: Reports cough. Denies dyspnea. All systems reviewed & are unremarkable except as noted in HPI and below PMFSH Past Medical History Medical History (Updated 02/22/23 @ 21:31 by Alexandra Saleem PA-C) Angina at rest BMI greater than 40 Cerebrovascular accident Mild left-sided weakness. Chronic anticoagulation Chronic obstructive pulmonary disease Congestive heart failure Coronary artery disease Stent to the distal circumflex and Left anterior descending in 2014. Left anterior descending stent in 04/2015. COVID Deep venous thrombosis Depression Diabetic peripheral neuropathy Fracture of fifth toe, right, closed Gastric ulcer Gastroesophageal reflux disease Hydronephrosis Hyperlipidemia Hypertension Kidney stones Myocardial infarction NSTEMI (non-ST elevated myocardial infarction) Obstructive sleep apnea on CPAP Peripheral vascular disease Pneumonia Psoriasis Seasonal allergies Transient ischemic attack Type 2 diabetes mellitus Surgical History Surgical History History of cardiac catheterization 2 stents History of cholecystectomy History of heart artery stent X2. History of lithotripsy History of rectal polypectomy History of tonsillectomy Family History Family History Mother Diabetes mellitus Kidney stones Arthritis Father Acute myocardial infarction Heart disease Kidney stones Hypertension Sibling Coronary artery disease Heart disease Hx of CABG Social History Social History Social History: Surrogate decision maker: Rena Dodd, friend. Code status: Full code. Smoking packs per day: 1 Smoking cigarettes per day: 20.0 Years smoked: 45
[2023-02-22 22:01] VITALS: BP 166/89; PULSE 72; RESP 18; O2SAT 99
== END 2023-02-22 22:02 | disposition home or self-care (01) ==
PROVIDERS: Emergency Provider Physician Assistant; PCP Registered Nurse
DX: T14.8XXA Other injury of unspecified body region, initial encounter (principal); U07.1 COVID-19; J44.9 Chronic obstructive pulmonary disease, unspecified; E78.5 Hyperlipidemia, unspecified; E11.9 Type 2 diabetes mellitus without complications; I25.10 Atherosclerotic heart disease of native coronary artery without angina pectoris; I11.0 Hypertensive heart disease with heart failure; I50.9 Heart failure, unspecified; F17.210 Nicotine dependence, cigarettes, uncomplicated; Z86.73 Personal history of transient ischemic attack (TIA), and cerebral infarction without residual deficits; X58.XXXA Exposure to other specified factors, initial encounter
CPT/HCPCS: 71046; 71100; 99283

== ENCOUNTER 2023-02-24 15:37 | Emergency (ER) | payer MEDICARE, MEDICAID, SELFPAY ==
--- NOTE | ~2023-02-24 | XR_ITS ---
XR chest 2V 02/24/2023 16:51 Indication: Left-sided chest pain. Covid. Procedure: 2 view chest Comparison: Comparison to multiple prior studies sequentially, with oldest reviewed study dated 06/2022. Findings: Heart size normal. No focal air space disease, pulmonary edema, pleural effusion or suspect ed pneumothorax. Shallow inspiration with crowding of the pulmonary vessels. Impression: 1: No acute cardiopulmonary disease. Reviewed, dictated and finalized at location L. LIER RELATIONSHIP DIRECTOR Impression: 1: No acute cardiopulmonary disease.
--- NOTE | ~2023-02-24 | CT_ITS ---
EXAMINATION: CTA chest PE protocol DATE: 02/24/2023 23:29 INDICATION: chest pain, elevated d dimer eval for PE TECHNIQUE: Computed tomography angiography (CTA) of the chest was performed with 100 mL Omnipaque-350 intravenous contrast timed to evaluate the pulmonary arteries. Coronal maximum intensity projection 3D-reconstructions were created by the technologist. The dose-length product (DLP) was 1170.89 mGy-cm . Automated exposure control and iterative reconstruction technique were employed. COMPARISON: None. FINDINGS: Lung parenchyma and airways: Bibasilar scar/atelectasis. Minimal dependent secretions in the left tho racic trachea. Pleura: Unremarkable. Thoracic inlet, axillae and chest wall: Unremarkable. Thoracic aorta: Normal. Mediastinum: Normal. Heart and pericardium: Normal. Coronary artery calcifications: Moderate. Upper abdomen: Diffusely low density liver. Left adrenal myelolipoma Bones: Nondisplaced chondral fractures in ribs 6 and 7 on the left. Pulmonary arteries: Study quality: Adequate. No pulmonary emboli detected. IMPRESSION: No CT evidence of acute pulmonary embolus. Minimal tracheal secretions. Nondisplaced chondral fractures of the left anterior sixth and seventh ribs, of uncertain age. Correl ate with history of trauma and pain/tenderness to the left of midline at the level of the inferior st ernum. Hepatic steatosis. Reviewed, dictated and finalized at location K. MACY TEACHER IMPRESSION: No CT evidence of acute pulmonary embolus. Minimal tracheal secretions. Nondisplaced chondral fractures of the left anterior sixth and seventh ribs, of uncertain age. Correlate with history of trauma and pain/tenderness to the lef t of midline at the level of the inferior sternum. Hepatic steatosis.
--- NOTE | 2023-02-24 16:08 | ECG_ITS ---
Measurements Intervals [place] Rate: 85 P: 28 ID: [id number] QRS: 46 QRSD: 155 T: -4 QT: 383 QTc: 456 Interpretive Statements SINUS RHYTHM RIGHT BUNDLE BRANCH BLOCK [120+ ms QRS DURATION, UPRIGHT V1, 40+ ms S IN I/aVL/V4/V5/V6] MODERATE T-WAVE ABNORMALITY, CONSIDER LATERAL ISCHEMIA [-0.1+ mV T WAVE IN I/aVL/V5/V6] COMPARED TO ECG 02/04/2023 20:33:57 T WAVE ABNORMALITY NOW PRESENT IN LATERAL LEADS Electronically Signed On 02-25-2023 13:15:06 [employer]OTTAGE CHE[employer] by Julio Richardson M.D.
[2023-02-24 16:13] VITALS: BP 158/56; PULSE 90; RESP 20; TEMP 36.7; O2SAT 98
--- NOTE | 2023-02-24 16:13 | ED.GENADULT ---
HPI - General Adult General Chief complaint: Unspecified <Latonya Galan APRN - Last Filed: 02/24/23 16:18> Stated complaint: rib pain upon inspiration. <Latonya Galan APRN - Last Filed: 02/24/23 16:18> Time Seen by Provider: 02/24/23 22:40 <Latonya Galan APRN - Last Filed: 02/24/23 16:18> Source: patient <Latonya Galan APRN - Last Filed: 02/24/23 16:18> Mode of arrival: ambulatory <Latonya Galan APRN - Last Filed: 02/24/23 16:18> Limitations: no limitations <Latonya Galan APRN - Last Filed: 02/24/23 16:18> History of Present Illness HPI narrative: Patient is a 62-year-old male with past medical history as noted below who presents emergency department today for evaluation of continued left upper rib/chest pain that has been going on for at least a week now. He was seen here 2 days ago but states the pain is continued. He states it hurts worse when he takes a deep breath. Denies any fall or injury. Was told he did not have any rib fracture anything in 2 days ago. Denies any fever, chills, dizziness, headache, lower leg swelling, or any other symptoms. <Latonya Galan APRN - Last Filed: 02/24/23 16:18> Related Data Home medications: Home Medications Medication Instructions Recorded Confirmed amlodipine 10 mg tablet 10 mg PO DAILY 01/24/19 02/04/23 bupropion HCl 150 mg tablet,12 hr 150 mg PO BID 01/24/19 02/04/23 sustained-release (Wellbutrin SR) doxazosin 2 mg tablet (Cardura) 2 mg PO HS 01/24/19 02/04/23 dulaglutide 1.5 mg/0.5 mL 1.5 mg subcut WEEKLY 01/24/19 02/04/23 subcutaneous pen injector (Trulicity) metformin 1,000 mg tablet 1,000 mg PO BID 01/24/19 02/04/23 rivaroxaban 2.5 mg tablet (Xarelto) 2.5 mg PO BID 01/24/19 02/04/23 omeprazole 40 mg capsule,delayed 40 mg PO DAILY 04/13/19 02/04/23 release carvedilol 25 mg tablet (Coreg) 25 mg PO BID 04/28/19 02/04/23 atorvastatin 40 mg tablet 80 mg PO HS 05/16/19 02/04/23 albuterol sulfate 90 mcg/actuation 2 puff inhalation Q4-6H PRN 01/09/20 02/04/23 aerosol inhaler (Ventolin HFA) Shortness Of Breath isosorbide mononitrate 60 mg 120 mg PO DAILY 01/09/20 02/04/23 tablet,extended release 24 hr loratadine 10 mg tablet (Claritin) 10 mg PO DAILY 03/15/20 02/04/23 alprazolam 0.25 mg tablet 0.25 mg PO HS 08/21/21 02/04/23 aspirin 81 mg chewable tablet 81 mg PO DAILY 09/29/21 02/04/23 (Children's Aspirin) losartan 100 mg tablet 100 mg PO DAILY 01/17/22 02/04/23 <Latonya Galan, DATABASE ENGINEER - Last Filed: 02/24/23 16:18> Allergies/adverse reactions: Allergies Allergy/AdvReac Type Severity Reaction Status Date / Time No Known Allergies Allergy Unknown Verified 02/22/23 20:29 <Latonya Galan, DATABASE ENGINEER - Last Filed: 02/24/23 16:18> Review of Systems Review of Systems: CONSTITUTIONAL: Denies fever, chills, or sweats. CARDIOVASCULAR: Denies chest pain, palpitations, or edema. CHEST: RESPIRATORY: +cough and dyspnea PSYCHIATRIC: Denies anxiety or depression. <Latonya Galan, DATABASE ENGINEER - Last Filed: 02/24/23 16:18> All systems reviewed & are unremarkable except as noted in HPI and below <Latonya Galan DATABASE ENGINEER - Last Filed: 02/24/23 16:18> [facility] Past Medical History Medical History: Medical History (Updated 02/25/23 @ 01:26 by Maynor Larson MD) Angina at rest BMI greater than 40 Cerebrovascular accident Mild left-sided weakness. Chronic anticoagulation Chronic obstructive pulmonary disease Congestive heart failure Coronary artery disease Stent to the distal circumflex and Left anterior descending in 2014. Left anterior descending stent in 04/2015. COVID Deep venous thrombosis Depression Diabetic peripheral neuropathy Fracture of fifth toe, right, closed Gastric ulcer Gastroesophageal reflux disease Hydronephrosis Hyperlipidemia Hypertension Kidney stones Myocardial infarction NSTEMI (non-ST elevated myocardial infarction) Obstructive sleep apnea on CPAP Peripheral vascular d
[2023-02-24 16:32] LABS: Basophils Percent Auto 0.3 % (0.2-1.2); Eosinophils Absolute Auto 0.2 K/mm3 (0-0.3); Hematocrit 42.3 % (42.0-52.0); Hemoglobin 14.2 g/dL (14.0-18.0); Immature Granulocyte Absolute 0.03 K/mm3 (0.00-0.031); Immature Granulocyte Percent A 0.4 % (0-0.5); Immature Platelet Fraction Pct 6.9 % (0.9-11.2); Lymphocytes Percent Auto 15.3 % (18.3-44.2); Mean Corpuscular HGB Conc 33.6 g/dl (32-36); Mean Corpuscular Hemoglobin 30.1 pg (26-34); Mean Corpuscular Volume 89.8 fl (80-100); Mean Platelet Volume 10.8 fl (7.4-10.4); Monocytes Absolute Auto 0.6 K/mm3 (0.1-0.6); Monocytes Percent Auto 8.1 % (2.6-8.5); Neutrophils Absolute Auto 5.8 K/mm3 (1.3-6.7); Neutrophils Percent Auto 73.9 % (45.5-73.1); Platelet Count Result 136 k/mm3 (150-375); Red Blood Count 4.71 M/mm3 (4.6-6.20); Red Cell Distribution Width 13.4 % (11.5-14.5); White Blood Count 7.9 K/mm3 (4.5-10.0)
[2023-02-24 16:37] LABS: Alanine Aminotransferase 44 U/L (6-50); Albumin Level 4.2 g/dL (3.5-5.1); Alkaline Phosphatase 66 U/L (38-126); Anion Gap 11 mmol/L (8-16); Aspartate Amino Transferase 32 U/L (17-59); Bilirubin,Total 0.6 mg/dL (0.2-1.3); Blood Urea Nitrogen 18 mg/dL (9-20); Calcium 9.4 mg/dL (8.4-10.2); Carbon Dioxide 23 mmol/L (22-30); Chloride 100 mmol/L (98-107); Estimated CRCL calculation 98 ml/min; Estimated Glomerular Filt Rate > 60; Glucose 210 mg/dL (65-110); Lipase 154 U/L (23-300); Potassium 4.8 mmol/L (3.4-5.0); Sodium 134 mmol/L (137-145)
[2023-02-24 16:49] LABS: Troponin I < 0.012 ng/mL (0.000-0.034)
[2023-02-24 16:50] LABS: INR 1.1; Prothrombin Time 14.6 Seconds (11.1-14.7)
[2023-02-24 16:51] LABS: Partial Thromboplastin Time 30.2 SECONDS (22.3-36.8)
[2023-02-24 17:06] LABS: D Dimer 1.07 ug/mL (<0.48)
[2023-02-24] MEDS: methocarbamoL 750 MG TABLET PO (17:11)
[2023-02-24] MEDS: LIDOCAINE 5% PATCH 1 PATCH TRANSDERM (17:11)
[2023-02-24] MEDS: ASPIRIN 81 MG CHEWABLE TABLET 324 MG PO (17:11)
[2023-02-24] MEDS: ALBUTEROL SULFATE NEB 2.5 MG/3 ML INH INHALATION (17:30)
[2023-02-24] MEDS: IPRATROPIUM BR 0.02% INH SOLN 0.5 MG/2.5 ML VIAL INHALATION (17:30)
[2023-02-24 17:33] VITALS: RESP 18
[2023-02-24 17:41] VITALS: RESP 18
--- NOTE | 2023-02-24 20:16 | ECG_ITS ---
Measurements Intervals [place] Rate: 84 P: 46 [place]: 166 QRS: 24 QRSD: 162 T: -12 QT: 398 QTc: 472 Interpretive Statements SINUS RHYTHM RIGHT BUNDLE BRANCH BLOCK [120+ ms QRS DURATION, UPRIGHT V1, 40+ ms S IN I/aVL/V4/V5/V6] COMPARED TO ECG 02/24/2023 16:13:08 NO SIGNIFICANT CHANGES Electronically Signed On 02-25-2023 13:17:07 HOSPITALIST PROGRAM DIRECTOR by Julio Richardson M.D.
[2023-02-24 20:51] LABS: Troponin I < 0.012 ng/mL (0.000-0.034)
[2023-02-24 22:30] VITALS: PULSE 94; O2SAT 94
[2023-02-24] MEDS: MORPHINE SULFATE (*CRX) 4 MG/ML INJ IV PUSH (23:19)
--- NOTE | 2023-02-24 23:19 | PC.NURSE ---
CT called and advised that patient cannot lay flat due to coughing that causes pain. Notified EDP Dr. Larson who ordered 4mg Morphine IVP. Jazlyn from CT witnessed the medication being given in CT.
--- NOTE | 2023-02-24 23:47 | ECG_ITS ---
Measurements Intervals [place] Rate: 85 P: 35 ND: 168 QRS: 34 QRSD: 158 T: -11 QT: 392 QTc: 467 Interpretive Statements SINUS RHYTHM RIGHT BUNDLE BRANCH BLOCK [120+ ms QRS DURATION, UPRIGHT V1, 40+ ms S IN I/aVL/V4/V5/V6] COMPARED TO ECG 02/24/2023 20:21:26 NO SIGNIFICANT CHANGES Electronically Signed On 02-25-2023 20:48:25 TESTING AND REGULATING TECHNICIAN by Julio Richardson M.D.
[2023-02-25 00:12] VITALS: BP 154/87; PULSE 86; RESP 18; O2SAT 95
[2023-02-25] MEDS: HYDROmorphone HCL INJ (*CRX) 1 MG/ML SYR IV PUSH (00:14)
[2023-02-25 00:26] LABS: Troponin I < 0.012 ng/mL (0.000-0.034)
--- NOTE | 2023-02-25 01:16 | PC.NURSE ---
Patient was instructed how and how often to use incentive spirometer. Patient proceeded to use incentive spirometer correctly and verbalized an understanding as well.
[2023-02-25 01:45] VITALS: BP 167/86; PULSE 88; RESP 22; TEMP 37.1; O2SAT 98
== END 2023-02-25 01:46 | disposition home or self-care (01) ==
PROVIDERS: Nurse Practitioner; Emergency Provider Emergency Medicine; PCP Registered Nurse
DX: S22.42XA Multiple fractures of ribs, left side, initial encounter for closed fracture (principal); R07.1 Chest pain on breathing; X58.XXXA Exposure to other specified factors, initial encounter; I25.10 Atherosclerotic heart disease of native coronary artery without angina pectoris; J44.9 Chronic obstructive pulmonary disease, unspecified; I69.354 Hemiplegia and hemiparesis following cerebral infarction affecting left non-dominant side; I11.0 Hypertensive heart disease with heart failure; I50.9 Heart failure, unspecified; E11.51 Type 2 diabetes mellitus with diabetic peripheral angiopathy without gangrene; K21.9 Gastro-esophageal reflux disease without esophagitis; I25.2 Old myocardial infarction; G47.33 Obstructive sleep apnea (adult) (pediatric); F32.A Depression, unspecified; Z86.718 Personal history of other venous thrombosis and embolism; Z95.5 Presence of coronary angioplasty implant and graft; Z79.85 Long-term (current) use of injectable non-insulin antidiabetic drugs; Z79.01 Long term (current) use of anticoagulants; Z79.51 Long term (current) use of inhaled steroids; Z79.82 Long term (current) use of aspirin; F17.210 Nicotine dependence, cigarettes, uncomplicated
CPT/HCPCS: 36415; 71046; 71275; 80053; 83690; 84484; 85025; 85055; 85380; 85610; 85730; 93005; 94640; 96374; 96375; 99284; A9270; J1170; J2270; Q9967

== ENCOUNTER 2023-02-27 08:20 | Emergency (ER) | payer MEDICARE, MEDICAID, SELFPAY ==
--- NOTE | ~2023-02-27 | XR_ITS ---
XR chest 1V portable 02/27/2023 08:55 Indication: Shortness of breath. Left-sided rib pain. Procedure: AP portable chest Comparison: 01/24/2023 Findings: Cardiomegaly with interstitial edema. Small left pleural effusion. No pneumothorax. No acut e osseous abnormality. Impression: 1: Cardiomegaly with mild interstitial edema. 2: Spacer small left pleural effusion. Reviewed, dictated and finalized at location A. D MERCHANDISER Impression: 1: Cardiomegaly with mild interstitial edema. 2: Spacer small left pleural effusion.
--- NOTE | 2023-02-27 08:23 | ECG_ITS ---
Measurements Intervals [place] Rate: 86 P: 14 [place]: 159 QRS: 40 QRSD: 156 T: -22 QT: 394 QTc: 472 Interpretive Statements SINUS RHYTHM RIGHT BUNDLE BRANCH BLOCK [120+ ms QRS DURATION, UPRIGHT V1, 40+ ms S IN I/aVL/V4/V5/V6] MODERATE T-WAVE ABNORMALITY, CONSIDER ANTEROLATERAL ISCHEMIA [-0.1+ mV T WAVE IN V3- V6] MODERATE T-WAVE ABNORMALITY, CONSIDER INFERIOR ISCHEMIA [-0.1+ mV T WAVE IN II/aVF] COMPARED TO ECG 02/24/2023 23:56:19 NO SIGNIFICANT CHANGES Electronically Signed On 02-27-2023 16:36:07 ROLLER MILL OPERATOR by Julio Richardson M.D.
[2023-02-27 08:25] VITALS: BP 183/90; PULSE 88; RESP 16; TEMP 36.7; O2SAT 95
--- NOTE | 2023-02-27 08:39 | ED.GENADULT ---
HPI - General Adult General Chief complaint: Shortness of Breath/Dyspnea Stated complaint: sob Time Seen by Provider: 02/27/23 08:21 History of Present Illness HPI narrative: 62-year-old male presenting to the emergency department for evaluation of exertional shortness states he does have some left-sided rib pain pain to previous rib fractures from coughing. Patient states this morning he went to walk to get a cup of coffee and had onset of shortness of breath. Upon arrival to the emergency department patient is saturating 95% on room air and appears to be in no distress. Related Data Home Medications Medication Instructions Recorded Confirmed amlodipine 10 mg tablet 10 mg PO DAILY 01/24/19 02/04/23 bupropion HCl 150 mg tablet,12 hr 150 mg PO BID 01/24/19 02/04/23 sustained-release (Wellbutrin SR) doxazosin 2 mg tablet (Cardura) 2 mg PO HS 01/24/19 02/04/23 dulaglutide 1.5 mg/0.5 mL 1.5 mg subcut WEEKLY 01/24/19 02/04/23 subcutaneous pen injector (Trulicity) metformin 1,000 mg tablet 1,000 mg PO BID 01/24/19 02/04/23 rivaroxaban 2.5 mg tablet (Xarelto) 2.5 mg PO BID 01/24/19 02/04/23 omeprazole 40 mg capsule,delayed 40 mg PO DAILY 04/13/19 02/04/23 release carvedilol 25 mg tablet (Coreg) 25 mg PO BID 04/28/19 02/04/23 atorvastatin 40 mg tablet 80 mg PO HS 05/16/19 02/04/23 albuterol sulfate 90 mcg/actuation 2 puff inhalation Q4-6H PRN 01/09/20 02/04/23 aerosol inhaler (Ventolin HFA) Shortness Of Breath isosorbide mononitrate 60 mg 120 mg PO DAILY 01/09/20 02/04/23 tablet,extended release 24 hr loratadine 10 mg tablet (Claritin) 10 mg PO DAILY 03/15/20 02/04/23 alprazolam 0.25 mg tablet 0.25 mg PO HS 08/21/21 02/04/23 aspirin 81 mg chewable tablet 81 mg PO DAILY 09/29/21 02/04/23 (Children's Aspirin) losartan 100 mg tablet 100 mg PO DAILY 01/17/22 02/04/23 Allergies Allergy/AdvReac Type Severity Reaction Status Date / Time No Known Allergies Allergy Unknown Verified 02/22/23 20:29 Review of Systems Review of Systems: All systems reviewed & are unremarkable except as noted in HPI and below [facility] Past Medical History Medical History (Updated 02/27/23 @ 18:30 by Calos Caceres MD) Angina at rest BMI greater than 40 Cerebrovascular accident Mild left-sided weakness. Chronic anticoagulation Chronic obstructive pulmonary disease Congestive heart failure Coronary artery disease Stent to the distal circumflex and Left anterior descending in 2014. Left anterior descending stent in 04/2015. COVID Deep venous thrombosis Depression Diabetic peripheral neuropathy Fracture of fifth toe, right, closed Gastric ulcer Gastroesophageal reflux disease Hydronephrosis Hyperlipidemia Hypertension Kidney stones Myocardial infarction NSTEMI (non-ST elevated myocardial infarction) Obstructive sleep apnea on CPAP Peripheral vascular disease Pneumonia Psoriasis Seasonal allergies Transient ischemic attack Type 2 diabetes mellitus Surgical History Surgical History History of cardiac catheterization 2 stents History of cholecystectomy History of heart artery stent X2. History of lithotripsy History of rectal polypectomy History of tonsillectomy Family History Family History Mother Diabetes mellitus Kidney stones Arthritis Father Acute myocardial infarction Heart disease Kidney stones Hypertension Sibling Coronary artery disease Heart disease Hx of CABG Social History Social History Social History: Surrogate decision maker: Rena Dodd, friend. Code status: Full code. Smoking packs per day: 1 Smoking cigarettes per day: 20.0 Years smoked: 45 Smoking pack-years: 45.00 Smoking status: Current every day smoker Tobacco type: cigarettes Second hand tobacco smoke exposure: No [place]
[2023-02-27 08:51] LABS: Basophils Percent Auto 0.2 % (0.2-1.2); Eosinophils Absolute Auto 0.1 K/mm3 (0-0.3); Eosinophils Percent Auto 1.5 % (0-4.4); Hematocrit 43.6 % (42.0-52.0); Hemoglobin 14.6 g/dL (14.0-18.0); Immature Granulocyte Absolute 0.03 K/mm3 (0.00-0.031); Immature Granulocyte Percent A 0.3 % (0-0.5); Immature Platelet Fraction Pct 6.7 % (0.9-11.2); Lymphocytes Absolute Auto 1.34 K/mm3 (0.9-3.2); Lymphocytes Percent Auto 14.1 % (18.3-44.2); Mean Corpuscular HGB Conc 33.5 g/dl (32-36); Mean Corpuscular Hemoglobin 30.3 pg (26-34); Mean Corpuscular Volume 90.5 fl (80-100); Monocytes Absolute Auto 0.7 K/mm3 (0.1-0.6); Monocytes Percent Auto 7.1 % (2.6-8.5); Neutrophils Absolute Auto 7.3 K/mm3 (1.3-6.7); Neutrophils Percent Auto 76.8 % (45.5-73.1); Platelet Count Result 142 k/mm3 (150-375); Red Blood Count 4.82 M/mm3 (4.6-6.20); Red Cell Distribution Width 13.6 % (11.5-14.5); White Blood Count 9.5 K/mm3 (4.5-10.0)
[2023-02-27 09:07] LABS: Alanine Aminotransferase 45 U/L (6-50); Albumin Level 4.6 g/dL (3.5-5.1); Alkaline Phosphatase 75 U/L (38-126); Anion Gap 12 mmol/L (8-16); Aspartate Amino Transferase 42 U/L (17-59); Blood Urea Nitrogen 21 mg/dL (9-20); Calcium 9.6 mg/dL (8.4-10.2); Carbon Dioxide 26 mmol/L (22-30); Chloride 97 mmol/L (98-107); Estimated CRCL calculation 90 ml/min; Estimated Glomerular Filt Rate > 60; Glucose 179 mg/dL (65-110); Potassium 4.4 mmol/L (3.4-5.0); Sodium 135 mmol/L (137-145)
[2023-02-27 09:30] VITALS: BP 188/95; PULSE 91; RESP 20; O2SAT 95
[2023-02-27 09:37] LABS: Influenza A QL RT-PCR Negative (Negative); Influenza B QL RT-PCR Negative (Negative); RSV RNA, RT-PCR Negative (Negative); SARS-CoV-2 RNA PCR Positive (Negative)
[2023-02-27 10:05] VITALS: BP 165/102; PULSE 95; RESP 15; O2SAT 94
== END 2023-02-27 10:10 | disposition home or self-care (01) ==
PROVIDERS: Emergency Provider Emergency Medicine; PCP Registered Nurse
DX: U07.1 COVID-19 (principal); R06.00 Dyspnea, unspecified; I69.954 Hemiplegia and hemiparesis following unspecified cerebrovascular disease affecting left non-dominant side; J44.9 Chronic obstructive pulmonary disease, unspecified; I25.10 Atherosclerotic heart disease of native coronary artery without angina pectoris; I25.2 Old myocardial infarction; E11.43 Type 2 diabetes mellitus with diabetic autonomic (poly)neuropathy; E78.5 Hyperlipidemia, unspecified; E11.51 Type 2 diabetes mellitus with diabetic peripheral angiopathy without gangrene; G47.33 Obstructive sleep apnea (adult) (pediatric); K21.9 Gastro-esophageal reflux disease without esophagitis; F17.210 Nicotine dependence, cigarettes, uncomplicated; Z95.5 Presence of coronary angioplasty implant and graft; Z87.442 Personal history of urinary calculi; Z86.16 Personal history of COVID-19; Z86.718 Personal history of other venous thrombosis and embolism; Z87.01 Personal history of pneumonia (recurrent); Z87.19 Personal history of other diseases of the digestive system; Z90.49 Acquired absence of other specified parts of digestive tract; Z79.01 Long term (current) use of anticoagulants; Z79.4 Long term (current) use of insulin; Z79.82 Long term (current) use of aspirin; Z79.85 Long-term (current) use of injectable non-insulin antidiabetic drugs; I51.7 Cardiomegaly
CPT/HCPCS: 36415; 71045; 80053; 85025; 85055; 87637; 93005; 99283

== ENCOUNTER 2023-03-24 09:25 | Outpatient (CLI) | payer MEDICARE, MEDICAID, SELFPAY ==
--- NOTE | ~2023-03-24 | XR_ITS ---
Supine and upright views of the abdomen Clinical history: Left renal stone COMPARISON: 03/21/2022 Findings: Bowel gas pattern is nonspecific. No evidence for obstruction or free air. No abnormal mass lesion or calcification is seen. Osseous structures are intact. Impression: No significant abnormality is seen. Reviewed, dictated and finalized at [facility]. APEUTIC RECREATION ASSISTANT Impression: No significant abnormality is seen.
== END 2023-03-24 09:26 | disposition home or self-care (01) ==
PROVIDERS: PCP Registered Nurse; Visit Provider Urology
DX: N20.0 Calculus of kidney (principal)
CPT/HCPCS: 74018

== ENCOUNTER 2023-04-08 08:24 | Emergency (ER) | payer MEDICARE, MEDICAID, SELFPAY ==
--- NOTE | ~2023-04-08 | CT_ITS ---
EXAMINATION: CT abdomen pelvis w con INDICATION: Abdominal pain TECHNIQUE: Computed tomographic images of the abdomen and pelvis were obtained after the administrati on of 100 cc of Omnipaque 350 intravenous contrast. The dose-length product (DLP) was 1668.78 mGy-cm. Automated exposure control and iterative reconstruction technique were employed. COMPARISON: 10/17/2022 FINDINGS: Minimal dependent atelectasis is present in the lung bases. The heart size is normal. There is a small left pleural effusion. The liver is diffusely low in attenuation when compared with the s pleen, consistent with hepatic steatosis. The spleen and pancreas are normal. There is a 2.5 cm mass of the right adrenal gland containing macroscopic fat, consistent with a myelolipoma. There are two m asses of the left adrenal gland containing macroscopic fat which measure 3.9 cm a 2.1 cm, consistent with myelolipomas. Changes of cholecystectomy are noted. Cysts of the kidneys measure up to 3 cm on t he right. No pathologically enlarged abdominal or pelvic lymph nodes are identified. No free intraper itoneal gas or evidence of bowel obstruction. There are bilateral inguinal hernias containing fat. Th ere is moderate lumbar spondylosis. IMPRESSION: 1. No CT correlate for the patient's symptoms. Reviewed, dictated and finalized at location B. CLEANER
[2023-04-08 08:32] VITALS: BP 176/98; PULSE 77; RESP 16; TEMP 36.6; O2SAT 100
[2023-04-08 09:09] VITALS: BP 170/90; PULSE 82; RESP 16; TEMP 36.5; O2SAT 99
[2023-04-08 09:38] LABS: Basophils Percent Auto 0.1 % (0.2-1.2); Eosinophils Absolute Auto 0.1 K/mm3 (0-0.3); Eosinophils Percent Auto 1.3 % (0-4.4); Hematocrit 42.8 % (42.0-52.0); Hemoglobin 14.5 g/dL (14.0-18.0); Immature Granulocyte Absolute 0.02 K/mm3 (0.00-0.031); Immature Granulocyte Percent A 0.3 % (0-0.5); Immature Platelet Fraction Pct 7.8 % (0.9-11.2); Lymphocytes Absolute Auto 1.01 K/mm3 (0.9-3.2); Mean Corpuscular HGB Conc 33.9 g/dl (32-36); Mean Corpuscular Hemoglobin 30.2 pg (26-34); Mean Corpuscular Volume 89.2 fl (80-100); Mean Platelet Volume 10.8 fl (7.4-10.4); Monocytes Absolute Auto 0.6 K/mm3 (0.1-0.6); Monocytes Percent Auto 8.5 % (2.6-8.5); Neutrophils Absolute Auto 5.5 K/mm3 (1.3-6.7); Neutrophils Percent Auto 75.8 % (45.5-73.1); Platelet Count Result 126 k/mm3 (150-375); Red Cell Distribution Width 13.8 % (11.5-14.5); White Blood Count 7.2 K/mm3 (4.5-10.0)
--- NOTE | 2023-04-08 09:41 | ECG_ITS ---
Measurements Intervals [place] Rate: 80 P: 41 [place]: 167 QRS: 39 QRSD: 169 T: 20 QT: 406 QTc: 469 Interpretive Statements SINUS RHYTHM RIGHT BUNDLE BRANCH BLOCK [120+ ms QRS DURATION, UPRIGHT V1, 40+ ms S IN I/aVL/V4/V5/V6] COMPARED TO ECG 02/27/2023 08:40:04 NO SIGNIFICANT CHANGES Electronically Signed On 04-08-2023 15:31:27 HOME CARE MUSIC THERAPIST by Julio Richardson M.D.
[2023-04-08 09:47] LABS: Alanine Aminotransferase 58 U/L (6-50); Albumin Level 4.5 g/dL (3.5-5.1); Alkaline Phosphatase 71 U/L (38-126); Anion Gap 9 mmol/L (8-16); Aspartate Amino Transferase 54 U/L (17-59); Bilirubin,Total 0.9 mg/dL (0.2-1.3); Blood Urea Nitrogen 12 mg/dL (9-20); Carbon Dioxide 24 mmol/L (22-30); Chloride 103 mmol/L (98-107); Estimated CRCL calculation 107 ml/min; Estimated Glomerular Filt Rate > 60; Glucose 153 mg/dL (65-110); Lipase 178 U/L (23-300); Potassium 4.1 mmol/L (3.4-5.0); Sodium 136 mmol/L (137-145)
[2023-04-08 09:53] LABS: Appearance Urine Clear (Clear); Bacteria Urine None Seen /hpf; Bilirubin Urine Negative (Negative); Blood Urine Negative (Negative); Color Urine Yellow (Yellow); Glucose Urine UA Negative (Negative); Ketones Urine Negative (Negative); Leukocyte Esterase Ur Negative LEU/UL (Negative); Nitrate Urine Negative (Negative); Non Pathogenic Casts 0-2; Protein Urine 2+ mg/dL (Negative); RBC Urine 0-2 /hpf (0-2); Squamous Epithelial Cell Urine None seen /hpf (Few); Urobilinogen Urine 0.2 mg/dL (<2.0); WBC Urine 0-5 /hpf
[2023-04-08 09:56] LABS: Add Urine Microscopic? YES
[2023-04-08 10:00] VITALS: BP 188/94; PULSE 78; RESP 19; TEMP 36.7; O2SAT 98
--- NOTE | 2023-04-08 10:07 | ED.NAVMDI ---
HPI - Nausea/Vomiting/Diarrhea General Chief complaint: Nausea/Vomiting/Diarrhea Stated complaint: gagged so hard I almost passed out Time Seen by Provider: 04/08/23 09:08 Source: patient Mode of arrival: ambulatory Limitations: no limitations History of Present Illness HPI Narrative: This is a 62 year old male that presents to the ER for GERD. Reports worsening over the last couple of weeks since he was started on Plavix. His instructional support technician changed him from Pepcid to Protonix and does not feel like that has helped. Reports abdominal pain, and burning epigastric pain. Reports nausea and vomiting. Denies fevers or shortness of breath. Related Data Home Medications Medication Instructions Recorded Confirmed amlodipine 10 mg tablet 10 mg PO DAILY 01/24/19 02/04/23 bupropion HCl 150 mg tablet,12 hr 150 mg PO BID 01/24/19 02/04/23 sustained-release (Wellbutrin SR) doxazosin 2 mg tablet (Cardura) 2 mg PO HS 01/24/19 02/04/23 dulaglutide 1.5 mg/0.5 mL 1.5 mg subcut WEEKLY 01/24/19 02/04/23 subcutaneous pen injector (Trulicity) metformin 1,000 mg tablet 1,000 mg PO BID 01/24/19 02/04/23 rivaroxaban 2.5 mg tablet (Xarelto) 2.5 mg PO BID 01/24/19 02/04/23 omeprazole 40 mg capsule,delayed 40 mg PO DAILY 04/13/19 02/04/23 release carvedilol 25 mg tablet (Coreg) 25 mg PO BID 04/28/19 02/04/23 atorvastatin 40 mg tablet 80 mg PO HS 05/16/19 02/04/23 albuterol sulfate 90 mcg/actuation 2 puff inhalation Q4-6H PRN 01/09/20 02/04/23 aerosol inhaler (Ventolin HFA) Shortness Of Breath isosorbide mononitrate 60 mg 120 mg PO DAILY 01/09/20 02/04/23 tablet,extended release 24 hr loratadine 10 mg tablet (Claritin) 10 mg PO DAILY 03/15/20 02/04/23 alprazolam 0.25 mg tablet 0.25 mg PO HS 08/21/21 02/04/23 aspirin 81 mg chewable tablet 81 mg PO DAILY 09/29/21 02/04/23 (Children's Aspirin) losartan 100 mg tablet 100 mg PO DAILY 01/17/22 02/04/23 Allergies Allergy/AdvReac Type Severity Reaction Status Date / Time No Known Allergies Allergy Unknown Verified 02/22/23 20:29 Review of Systems Review of Systems: CONSTITUTIONAL: Denies fever GASTROINTESTINAL: Reports abdominal pain, nausea, vomiting All systems reviewed & are unremarkable except as noted in HPI and below PMFSH Past Medical History Medical History (Updated 04/08/23 @ 12:48 by Alexandra Saleem PA-C) Angina at rest BMI greater than 40 Cerebrovascular accident Mild left-sided weakness. Chronic anticoagulation Chronic obstructive pulmonary disease Congestive heart failure Coronary artery disease Stent to the distal circumflex and Left anterior descending in 2014. Left anterior descending stent in 04/2015. COVID Deep venous thrombosis Depression Diabetic peripheral neuropathy Fracture of fifth toe, right, closed Gastric ulcer Gastroesophageal reflux disease Hydronephrosis Hyperlipidemia Hypertension Kidney stones Myocardial infarction NSTEMI (non-ST elevated myocardial infarction) Obstructive sleep apnea on CPAP Peripheral vascular disease Pneumonia Psoriasis Seasonal allergies Transient ischemic attack Type 2 diabetes mellitus Surgical History Surgical History History of cardiac catheterization 2 stents History of cholecystectomy History of heart artery stent X2. History of lithotripsy History of rectal polypectomy History of tonsillectomy Family History Family History (Updated 03/20/23 @ 08:45 by Nikky Fregoso RN) Mother Diabetes mellitus Arthritis Kidney stones Coronary artery disease Father Acute myocardial infarction Heart disease Kidney stones Hypertension Coronary artery disease Sibling Coronary artery disease Heart disease Hx of CABG Social History Social History Social History: Surrogate decision maker: Rena Dodd, friend. Code status: Full code. Smoking packs
[2023-04-08] MEDS: ONDANSETRON INJ 4 MG/2 ML VIAL IV PUSH (10:10)
[2023-04-08] MEDS: PANTOPRAZOLE SODIUM IV 40 MG VIAL IV PUSH (10:10)
[2023-04-08 10:13] LABS: Troponin I < 0.012 ng/mL (0.000-0.034)
[2023-04-08 11:02] VITALS: BP 190/92; PULSE 78; RESP 16; TEMP 36.4; O2SAT 99
[2023-04-08] MEDS: BELLADONNA ALK/PHENOB ELIX 10 ML, MAG HYDROX/ALUMINUM HYD/SIMETH 30 ML, LIDOCAINE HCL 2... PO (11:55)
[2023-04-08 12:00] VITALS: BP 192/94; PULSE 79; RESP 16; TEMP 36.6; O2SAT 98
[2023-04-08 12:16] VITALS: PULSE 79; RESP 17
== END 2023-04-08 14:11 | disposition home or self-care (01) ==
PROVIDERS: Emergency Provider Physician Assistant; PCP Registered Nurse
DX: K21.00 Gastro-esophageal reflux disease with esophagitis, without bleeding (principal); R10.13 Epigastric pain; J44.9 Chronic obstructive pulmonary disease, unspecified; E78.5 Hyperlipidemia, unspecified; I25.2 Old myocardial infarction; E11.9 Type 2 diabetes mellitus without complications; I25.10 Atherosclerotic heart disease of native coronary artery without angina pectoris; I11.0 Hypertensive heart disease with heart failure; I50.9 Heart failure, unspecified; F17.210 Nicotine dependence, cigarettes, uncomplicated; Z86.73 Personal history of transient ischemic attack (TIA), and cerebral infarction without residual deficits; Z79.01 Long term (current) use of anticoagulants
CPT/HCPCS: 36415; 74177; 80053; 81001; 83690; 84484; 85025; 85055; 93005; 96374; 96375; 99284; A9270; C9113; J2405; Q9967

== ENCOUNTER 2023-05-11 07:15 | Outpatient (RCR) | payer MEDICARE, MEDICAID, SELFPAY ==
[2023-03-25 08:12] LABS: Glucose Point of Care 200 mg/dl (65-105)
[2023-04-06 07:25] LABS: Glucose Point of Care 205 mg/dl (65-105)
[2023-04-06 09:49] LABS: Glucose Point of Care 200 mg/dl (65-105)
[2023-05-27 07:32] LABS: Glucose Point of Care 203 mg/dl (65-105)
== END 2023-07-06 10:15 | disposition home or self-care (01) ==
LOC: ANHCPREHAB 07:15
PROVIDERS: PCP Registered Nurse; Visit Provider Internal Medicine Cardiovascular Disease
DX: I25.2 Old myocardial infarction (principal)
CPT/HCPCS: 93798

== ENCOUNTER 2023-06-25 16:02 | Emergency (ER) | payer MEDICARE, MEDICAID, SELFPAY ==
--- NOTE | ~2023-06-25 | XR_ITS ---
EXAMINATION: XR chest 1V portable DATE: 06/25/2023 17:35 INDICATION: Chest pain. TECHNIQUE: A single frontal view of the chest was obtained. COMPARISON: Chest single view 02/27/2023, CT abdomen and pelvis 04/08/2023 FINDINGS: There are airspace opacities in the lower lung zones. There is prominent extrapleural fat i n left lateral costophrenic angle. No pleural effusion or pneumothorax. The heart size is normal. IMPRESSION: 1. Airspace opacities in the lower lung zones, consistent with atelectasis versus pneumonia. Reviewed, dictated and finalized at location E. IMPRESSION: 1. Airspace opacities in the lower lung zones, consistent with atelectasis vers us pneumonia.
[2023-06-25 16:04] VITALS: BP 136/75; PULSE 91; RESP 20; TEMP 36.6; O2SAT 95
--- NOTE | 2023-06-25 16:44 | ECG_ITS ---
SEE SCANNED COPY FOR CONFIRMED REPORT MTDD
--- NOTE | 2023-06-25 16:53 | ED.BACK ---
HPI - Back Pain/Injury General Chief Complaint: Back Pain/Injury <Xander Carter PA-C - Last Filed: 06/25/23 16:55> Stated Complaint: lower back pain X3 days <Xander Carter PA-C - Last Filed: 06/25/23 16:55> Time Seen by Provider: 06/25/23 16:46 <Xander Carter PA-C - Last Filed: 06/25/23 16:55> This is a 63-year-old male who with PMH of CAD, recent IA in January of 2023 who presents to the ED for chief complaint of low back pain. Reports that he felt like he pulled the low back few days ago when he bent over to pick something up. States it started to get better however today he noticed the pain was sharply worsening. Denies any numbness, weakness or saddle anesthesia. While in the waiting room patient started to have chest pain. He reports that the pain is in the central chest and feels like it is radiating down the arm. Denies upper back pain or interscapular pain. Denies nausea, sweats, any recent chest pain. <SURESH Hernandez Last Filed: 06/25/23 16:55> Source: patient <SURESH Hernandez Last Filed: 06/25/23 16:55> Mode of arrival: ambulatory <SURESH Hernandez Last Filed: 06/25/23 16:55> Limitations: no limitations <SURESH Hernandez Last Filed: 06/25/23 16:55> History of Present Illness HPI Narrative: Patient is a 63 year old male with history of CAD, recent IA in January of 2023, CVA on xeralto who presents to the ED today for low back pain and chest pain. He notes that 3 days ago he was reaching across the table and felt a pop in his back. He has had pain ever since. He notes it is located in his lower back and worse with any movement and difficult to stand. He states that it has been waxing and waning in severity however this morning he went to try to sit on the toilet to use the restroom and had to stand up immediately due to worsening of his pain. He denies any bowel or bladder incontinence. Denies any numbness, weakness, saddle anesthesia. While in the waiting room he began having mid sternal chest pain. He states it was located in the left side of his chest and radiated into his neck and his left arm. He notes that the pain was mild in nature but did feel similar to prior heart attacks. He notes that it is less severe but still present at this time. Denies upper back pain or interscapular pain. <Brenda Garcia MD - Last Filed: 06/25/23 22:33> Related Data Home Medications: Home Medications Medication Instructions Recorded Confirmed amlodipine 10 mg tablet 10 mg PO DAILY 01/24/19 02/04/23 bupropion HCl 150 mg tablet,12 hr 150 mg PO BID 01/24/19 02/04/23 sustained-release (Wellbutrin SR) doxazosin 2 mg tablet (Cardura) 2 mg PO HS 01/24/19 02/04/23 dulaglutide 1.5 mg/0.5 mL 1.5 mg subcut WEEKLY 01/24/19 02/04/23 subcutaneous pen injector (Trulicity) metformin 1,000 mg tablet 1,000 mg PO BID 01/24/19 02/04/23 rivaroxaban 2.5 mg tablet (Xarelto) 2.5 mg PO BID 01/24/19 02/04/23 omeprazole 40 mg capsule,delayed 40 mg PO DAILY 04/13/19 02/04/23 release carvedilol 25 mg tablet (Coreg) 25 mg PO BID 04/28/19 02/04/23 atorvastatin 40 mg tablet 80 mg PO HS 05/16/19 02/04/23 albuterol sulfate 90 mcg/actuation 2 puff inhalation Q4-6H PRN 01/09/20 02/04/23 aerosol inhaler (Ventolin HFA) Shortness Of Breath isosorbide mononitrate 60 mg 120 mg PO DAILY 01/09/20 02/04/23 tablet,extended release 24 hr loratadine 10 mg tablet (Claritin) 10 mg PO DAILY 03/15/20 02/04/23 alprazolam 0.25 mg tablet 0.25 mg PO HS 08/21/21 02/04/23 aspirin 81 mg chewable tablet 81 mg PO DAILY 09/29/21 02/04/23 (Children's Aspirin) losartan 100 mg tablet 100 mg PO DAILY 01/17/22 02/04/23 <Xander Carter PA-C - Last Filed: 06/25/23 16:55> Allergies/Adverse Reactions: Allergies Allergy/AdvReac Type Severity Reaction Status Date / Time No Known Allergies Allergy Unknown Verified 06/25/23 16:02 <Xander Carter PA-C - Last Filed: 06/25/23 16:55> Review of S
[2023-06-25 17:31] LABS: Prothrombin Time 14.1 Seconds (11.1-14.7)
[2023-06-25 17:32] LABS: Alanine Aminotransferase 40 U/L (6-50); Albumin Level 4.5 g/dL (3.5-5.1); Alkaline Phosphatase 66 U/L (38-126); Anion Gap 12 mmol/L (4-12); Aspartate Amino Transferase 34 U/L (17-59); Basophils Percent Auto 0.3 % (0.2-1.2); Bilirubin,Total 0.7 mg/dL (0.2-1.3); Blood Urea Nitrogen 15 mg/dL (9-20); Calcium 9.5 mg/dL (8.4-10.2); Carbon Dioxide 21 mmol/L (22-30); Chloride 105 mmol/L (98-107); Eosinophils Absolute Auto 0.1 K/mm3 (0-0.3); Eosinophils Percent Auto 2.1 % (0-4.4); Estimated CRCL calculation 96 ml/min; Estimated Glomerular Filt Rate > 60; Glucose 208 mg/dL (65-110); Hemoglobin 13.9 g/dL (14.0-18.0); Immature Granulocyte Absolute 0.02 K/mm3 (0.00-0.031); Immature Granulocyte Percent A 0.3 % (0-0.5); Lipase 138 U/L (23-300); Lymphocytes Absolute Auto 1.15 K/mm3 (0.9-3.2); Lymphocytes Percent Auto 17.3 % (18.3-44.2); Mean Corpuscular HGB Conc 33.9 g/dl (32-36); Mean Corpuscular Volume 88.6 fl (80-100); Mean Platelet Volume 11.2 fl (7.4-10.4); Monocytes Absolute Auto 0.6 K/mm3 (0.1-0.6); Monocytes Percent Auto 8.6 % (2.6-8.5); Neutrophils Absolute Auto 4.8 K/mm3 (1.3-6.7); Neutrophils Percent Auto 71.4 % (45.5-73.1); Partial Thromboplastin Time 31.6 Seconds (22.3-36.8); Platelet Count Result 145 k/mm3 (150-375); Potassium 3.9 mmol/L (3.4-5.0); Red Blood Count 4.63 M/mm3 (4.6-6.20); Sodium 138 mmol/L (137-145); White Blood Count 6.7 K/mm3 (4.5-10.0)
[2023-06-25 17:45] LABS: Troponin I < 0.012 ng/mL (0.000-0.034)
[2023-06-25 18:18] VITALS: BP 136/80; PULSE 86; RESP 22; O2SAT 98
[2023-06-25 18:23] LABS: Appearance Urine Clear (Clear); Bacteria Urine None Seen /hpf; Bilirubin Urine Negative (Negative); Blood Urine Negative (Negative); Color Urine Dark Yellow (Yellow); Glucose Urine UA 2+ mg/dL (Negative); Ketones Urine Trace mg/dL (Negative); Leukocyte Esterase Ur Negative LEU/UL (Negative); Nitrate Urine Negative (Negative); Protein Urine 3+ mg/dL (Negative); RBC Urine 0-2 /hpf (0-2); Specific Grav Ur 1.027 (1.001-1.035); Squamous Epithelial Cell Urine None Seen /hpf (Few); WBC Urine 0-5 /hpf (0-3); pH Urine 5.5 (5.0-9.0)
[2023-06-25 18:25] LABS: Add Urine Microscopic? YES
[2023-06-25] MEDS: ONDANSETRON INJ 4 MG/2 ML VIAL IV PUSH ×2 (18:47→20:21)
[2023-06-25] MEDS: NITROGLYCERIN SL 0.4 MG TABLET SUBLINGUAL (18:47)
[2023-06-25] MEDS: HYDROmorphone HCL INJ (*CRX) 1 MG/ML SYR IV PUSH (18:48)
[2023-06-25 18:58] VITALS: BP 130/79; PULSE 84; RESP 17; O2SAT 96
[2023-06-25 20:28] LABS: Troponin I < 0.012 ng/mL (0.000-0.034)
--- NOTE | 2023-06-25 20:56 | ECG_ITS ---
SEE SCANNED COPY FOR CONFIRMED REPORT MTDD
[2023-06-25 21:09] VITALS: BP 144/75; PULSE 82; RESP 16; O2SAT 98
[2023-06-25] MEDS: METOCLOPRAMIDE HCL INJ 10 MG/2 ML VIAL IV PUSH (22:11)
[2023-06-25] MEDS: diphenhydrAMINE HCl INJ 50 MG/ML VIAL 25 MG IV PUSH (22:11)
[2023-06-25 22:45] VITALS: BP 148/76; PULSE 81; RESP 15; O2SAT 98
== END 2023-06-26 00:08 | disposition home or self-care (01) ==
PROVIDERS: Physician Assistant; Emergency Provider Student in an Organized Health Care Education/Training Program; PCP Registered Nurse
DX: M54.50 Low back pain, unspecified (principal); R07.89 Other chest pain; I25.10 Atherosclerotic heart disease of native coronary artery without angina pectoris; I25.2 Old myocardial infarction; I50.9 Heart failure, unspecified; I11.0 Hypertensive heart disease with heart failure; I69.954 Hemiplegia and hemiparesis following unspecified cerebrovascular disease affecting left non-dominant side; J44.9 Chronic obstructive pulmonary disease, unspecified; E11.42 Type 2 diabetes mellitus with diabetic polyneuropathy; E78.5 Hyperlipidemia, unspecified; E11.51 Type 2 diabetes mellitus with diabetic peripheral angiopathy without gangrene; I73.9 Peripheral vascular disease, unspecified; K21.9 Gastro-esophageal reflux disease without esophagitis; G47.33 Obstructive sleep apnea (adult) (pediatric); F17.210 Nicotine dependence, cigarettes, uncomplicated; Z95.5 Presence of coronary angioplasty implant and graft; Z86.718 Personal history of other venous thrombosis and embolism; Z86.16 Personal history of COVID-19; Z87.01 Personal history of pneumonia (recurrent); Z87.442 Personal history of urinary calculi; Z87.19 Personal history of other diseases of the digestive system; Z90.49 Acquired absence of other specified parts of digestive tract; Z79.01 Long term (current) use of anticoagulants; Z79.85 Long-term (current) use of injectable non-insulin antidiabetic drugs; Z79.82 Long term (current) use of aspirin; I45.10 Unspecified right bundle-branch block
CPT/HCPCS: 36415; 71045; 80053; 81001; 83690; 84484; 85025; 85610; 85730; 93005; 96374; 96375; 96376; 99284; A9270; J1170; J1200; J2405; J2765

== ENCOUNTER 2023-08-31 12:44 | Emergency (ER) | payer MEDICARE, MEDICAID, SELFPAY ==
--- NOTE | ~2023-08-31 | XR_ITS ---
XR foot LT min 3V Ordering provider: Sandra Mello NP History: . Fall last night, pain 4th and 5th toes . Comparison: None. FINDINGS: BONES: Chip Fracture at the base of the middle phalanx of the fourth and fifth toe medially. No other fractures seen. Calcaneal spur. JOINT SPACES: Osteoarthritic changes of the first metatarsophalangeal joint. No tarsal coalition. SOFT TISSUES: Normal. Ossification of the insertion of the tendo Achilles. IMPRESSION: Chip fracture at the base of the middle phalanx of the fourth and fifth toe medially. Reviewed, dictated and finalized at location A. IMPRESSION: Chip fracture at the base of the middle phalanx of the fourth and fifth toe verenice durant.
--- NOTE | ~2023-08-31 | XR_ITS ---
XR knee LT 3V Ordering provider: Sandra Mello NP History: . fell last night some bruising and swelling below knee . Comparison: None. FINDINGS: BONES: No acute fracture or dislocation. Osteopenia. JOINT SPACES: Normal. SOFT TISSUES: Normal. IMPRESSION: No acute osseous abnormality left knee. Reviewed, dictated and finalized at location A.
--- NOTE | 2023-08-31 12:48 | ED.LOWEXIN ---
HPI - Extremity Injury (Lower) General Chief Complaint: Extremity Injury, Lower Stated Complaint: FALL/INJURED L FOOT Time Seen by Provider: 08/31/23 13:00 Source: patient, family, RN notes reviewed and old records reviewed Mode of arrival: ambulatory Limitations: no limitations History of Present Illness HPI Narrative: 63 [facility] old male [facility] with complaints of injury to his left foot when he missed last step on deck last night around 2200.He reports that he also hit his left knee when he fell with pain and some bruising to his area below his knee cap. Patient states he hit left side of head on metal trash can but did not have any loss of consciousness, no bruising, or swelling,or pain to his head, reports was small trash can , patient is on daily Xarelto and is diabetic with some peripheral neuropathy. MD complaint: knee injury (left) and foot injury ( left 4th and 5th toes) Onset (ago): day(s) (last night at 2200) Injury: Left: foot Type of Injury: other ( missed step on deck was dark he fell injury left foot and knee) Place: home Severity: severe (toes) Severity scale (1-10): 10 Exacerbating factors: weight bearing Treatments prior to arrival: other (epsom salt soaks) Related Data Home Medications Medication Instructions Recorded Confirmed amlodipine 10 mg tablet 10 mg PO DAILY 01/24/19 08/31/23 bupropion HCl 150 mg tablet,12 hr 150 mg PO BID 01/24/19 08/31/23 sustained-release (Wellbutrin SR) doxazosin 2 mg tablet (Cardura) 2 mg PO HS 01/24/19 08/31/23 dulaglutide 1.5 mg/0.5 mL 1.5 mg subcut WEEKLY 01/24/19 08/31/23 subcutaneous pen injector (Trulicity) metformin 1,000 mg tablet 1,000 mg PO BID 01/24/19 08/31/23 rivaroxaban 2.5 mg tablet (Xarelto) 2.5 mg PO BID 01/24/19 08/31/23 omeprazole 40 mg capsule,delayed 40 mg PO DAILY 04/13/19 08/31/23 release carvedilol 25 mg tablet (Coreg) 25 mg PO BID 04/28/19 08/31/23 atorvastatin 40 mg tablet 80 mg PO HS 05/16/19 08/31/23 albuterol sulfate 90 mcg/actuation 2 puff inhalation Q4-6H PRN 01/09/20 08/31/23 aerosol inhaler (Ventolin HFA) Shortness Of Breath isosorbide mononitrate 60 mg 120 mg PO DAILY 01/09/20 08/31/23 tablet,extended release 24 hr loratadine 10 mg tablet (Claritin) 10 mg PO DAILY 03/15/20 08/31/23 alprazolam 0.25 mg tablet 0.25 mg PO HS 08/21/21 08/31/23 aspirin 81 mg chewable tablet 81 mg PO DAILY 09/29/21 08/31/23 (Children's Aspirin) losartan 100 mg tablet 100 mg PO DAILY 01/17/22 08/31/23 Allergies Allergy/AdvReac Type Severity Reaction Status Date / Time No Known Allergies Allergy Unknown Verified 08/31/23 12:52 Review of Systems Review of Systems: CONSTITUTIONAL: Denies fever, chills, or sweats. EYES: Denies visual changes, redness, or discharge. ENT: Denies rhinorrhea, congestion, sore throat, or otalgia. CARDIOVASCULAR: Denies chest pain, palpitations, or edema. RESPIRATORY: Denies cough or dyspnea. GASTROINTESTINAL: Denies abdominal pain, nausea, vomiting, or diarrhea. GENITOURINARY: Denies dysuria or hematuria. SKIN: Denies rash or itching. MUSCULOSKELETAL: chronic arthritis pain back pain, left 4th and 5th toe pain, some pain to area below left knee cap or myalgia. NEUROLOGIC: Denies headache, numbness, or weakness.is diabetic does have some peripheral neuropathy PSYCHIATRIC: Positive for history of anxiety or depression. All systems reviewed & are unremarkable except as noted in HPI and below PMFSH Past Medical History Medical History (Updated 08/31/23 @ 17:39 by Sandra Mello NP) Angina at rest BMI greater than 40 Cerebrovascular accident Mild left-sided weakness. Chronic anticoagulation Chronic obstructive pulmonary disease Congestive heart failure Coronary artery disease Stent to the distal circumflex and Left anterior descending in 2014. Left anterior descending stent in 04/2015. COVID Deep venous thrombosis Depression Diabetic peripheral neuropathy Fracture of fifth toe, right, closed G
[2023-08-31 12:56] VITALS: BP 142/84; PULSE 90; RESP 16; TEMP 36.6; O2SAT 98
== END 2023-08-31 14:02 | disposition home or self-care (01) ==
PROVIDERS: Emergency Provider Registered Nurse; PCP Registered Nurse
DX: S80.02XA Contusion of left knee, initial encounter (principal); S92.522A Displaced fracture of middle phalanx of left lesser toe(s), initial encounter for closed fracture; W10.9XXA Fall (on) (from) unspecified stairs and steps, initial encounter; S90.415A Abrasion, left lesser toe(s), initial encounter; F17.210 Nicotine dependence, cigarettes, uncomplicated; J44.9 Chronic obstructive pulmonary disease, unspecified; I69.354 Hemiplegia and hemiparesis following cerebral infarction affecting left non-dominant side; I11.0 Hypertensive heart disease with heart failure; I50.9 Heart failure, unspecified; E11.42 Type 2 diabetes mellitus with diabetic polyneuropathy; K21.9 Gastro-esophageal reflux disease without esophagitis; E78.5 Hyperlipidemia, unspecified; I25.2 Old myocardial infarction; I73.9 Peripheral vascular disease, unspecified; I20.9 Angina pectoris, unspecified; Z86.718 Personal history of other venous thrombosis and embolism; Z86.16 Personal history of COVID-19; Z79.84 Long term (current) use of oral hypoglycemic drugs; Z79.82 Long term (current) use of aspirin; Z79.01 Long term (current) use of anticoagulants
CPT/HCPCS: 73562; 73630; 99214; G0463

== ENCOUNTER 2023-10-14 10:05 | Emergency (ER) | payer MEDICARE, MEDICAID, SELFPAY ==
[2023-10-14 10:21] VITALS: BP 146/84; PULSE 78; RESP 16; TEMP 36.5; O2SAT 98
--- NOTE | 2023-10-14 10:36 | ED.EXTPRO ---
HPI - Extremity Problem General Chief complaint: Extremity Problem,Nontraumatic Stated complaint: L FOOT PAIN Source: patient Mode of arrival: ambulatory Limitations: no limitations History of Present Illness HPI Narrative: 63 y/o male with hx COPD, CVA, DM, CHF, CAD/NSTEMI presented for c/o left foot pain for 2 days. Pt states he 'broke some toes' on 08/30, wore a post op shoe and suze tape for about one week and has f/u with route delivery supervisor with repeat xray. Denies new injury or recent overuse. Denies swelling, redness, temperature changes, numbness, tingling or weakness of the foot. Endorses history of neuropathy but does it does not cause pain. Has not taken anything for pain. Related Data Home Medications Medication Instructions Recorded Confirmed amlodipine 10 mg tablet 10 mg PO DAILY 01/24/19 10/14/23 bupropion HCl 150 mg tablet,12 hr 150 mg PO BID 01/24/19 10/14/23 sustained-release (Wellbutrin SR) doxazosin 2 mg tablet (Cardura) 2 mg PO HS 01/24/19 10/14/23 dulaglutide 1.5 mg/0.5 mL 1.5 mg subcut WEEKLY 01/24/19 10/14/23 subcutaneous pen injector (Trulicity) metformin 1,000 mg tablet 1,000 mg PO BID 01/24/19 10/14/23 rivaroxaban 2.5 mg tablet (Xarelto) 2.5 mg PO BID 01/24/19 10/14/23 omeprazole 40 mg capsule,delayed 40 mg PO DAILY 04/13/19 10/14/23 release carvedilol 25 mg tablet (Coreg) 25 mg PO BID 04/28/19 10/14/23 atorvastatin 40 mg tablet 80 mg PO HS 05/16/19 10/14/23 albuterol sulfate 90 mcg/actuation 2 puff inhalation Q4-6H PRN 01/09/20 10/14/23 aerosol inhaler (Ventolin HFA) Shortness Of Breath isosorbide mononitrate 60 mg 120 mg PO DAILY 01/09/20 10/14/23 tablet,extended release 24 hr loratadine 10 mg tablet (Claritin) 10 mg PO DAILY 03/15/20 10/14/23 alprazolam 0.25 mg tablet 0.25 mg PO HS 08/21/21 10/14/23 aspirin 81 mg chewable tablet 81 mg PO DAILY 09/29/21 10/14/23 (Children's Aspirin) losartan 100 mg tablet 100 mg PO DAILY 01/17/22 10/14/23 Allergies Allergy/AdvReac Type Severity Reaction Status Date / Time No Known Allergies Allergy Unknown Verified 10/14/23 10:35 Review of Systems Review of Systems: CONSTITUTIONAL: Denies body aches, fever, chills CARDIOVASCULAR: Denies chest pain, palpitations, or edema. RESPIRATORY: Denies cough or dyspnea. SKIN: Denies rash, itching, or wounds. MUSCULOSKELETAL:reports left foot pain NEUROLOGIC: Denies headache, numbness, tingling, or weakness. All systems reviewed & are unremarkable except as noted in HPI and below PMFSH Past Medical History Medical History Angina at rest BMI greater than 40 Cerebrovascular accident Mild left-sided weakness. Chronic anticoagulation Chronic obstructive pulmonary disease Congestive heart failure Coronary artery disease Stent to the distal circumflex and Left anterior descending in 2014. Left anterior descending stent in 04/2015. COVID Deep venous thrombosis Depression Diabetic peripheral neuropathy Fracture of fifth toe, right, closed Gastric ulcer Gastroesophageal reflux disease Hydronephrosis Hyperlipidemia Hypertension Kidney stones Myocardial infarction NSTEMI (non-ST elevated myocardial infarction) Obstructive sleep apnea on CPAP Peripheral vascular disease Pneumonia Psoriasis Seasonal allergies Transient ischemic attack Type 2 diabetes mellitus Surgical History Surgical History History of cardiac catheterization 2 stents History of cholecystectomy History of heart artery stent X2. History of lithotripsy History of rectal polypectomy History of tonsillectomy Family History Family History Mother Diabetes mellitus Arthritis Kidney stones Coronary artery disease Father Acute myocardial infarction Heart disease Kidney stones Hypertension Coronary artery disease Sibling Coronary artery diseas
== END 2023-10-14 11:00 | disposition home or self-care (01) ==
PROVIDERS: Emergency Provider Nurse Practitioner Family; PCP Registered Nurse
DX: M79.672 Pain in left foot (principal); F17.210 Nicotine dependence, cigarettes, uncomplicated; I25.110 Atherosclerotic heart disease of native coronary artery with unstable angina pectoris; J44.0 Chronic obstructive pulmonary disease with (acute) lower respiratory infection; I69.354 Hemiplegia and hemiparesis following cerebral infarction affecting left non-dominant side; E11.42 Type 2 diabetes mellitus with diabetic polyneuropathy; Z79.84 Long term (current) use of oral hypoglycemic drugs; K21.9 Gastro-esophageal reflux disease without esophagitis; E78.5 Hyperlipidemia, unspecified; I10 Essential (primary) hypertension; I25.2 Old myocardial infarction; G47.33 Obstructive sleep apnea (adult) (pediatric); I73.9 Peripheral vascular disease, unspecified; Z95.5 Presence of coronary angioplasty implant and graft; Z86.16 Personal history of COVID-19; Z79.01 Long term (current) use of anticoagulants; Z79.82 Long term (current) use of aspirin
CPT/HCPCS: 99212; G0463

== ENCOUNTER 2023-10-19 19:03 | Emergency (ER) | payer MEDICARE, MEDICAID, SELFPAY ==
[2023-10-19] VITALS (9 sets, daily range): BP systolic 115–136; BP diastolic 72–95; PULSE 80–95; RESP 16–22; TEMP 36.2–36.6; O2SAT 95–99
--- NOTE | ~2023-10-19 | XR_ITS ---
EXAMINATION: XR chest 2V Exam Date/Time: 10/19/2023 19:28 CDT HISTORY: cp, sob Comparison: None. RESULT: Lines, tubes, and devices: Loop recorder. Lungs and pleura: Chronic left costophrenic angle blunting, otherwise clear. Cardiomediastinal silhouette: Stable. Other: No acute osseous or upper abdominal finding. IMPRESSION: No acute cardiopulmonary process. Reviewed, dictated and finalized at location K.
--- NOTE | 2023-10-19 19:06 | ECG_ITS ---
Test Date: 2023-10-19 19:10:33 Measurements Intervals [place] Rate: 92 P: 93 [place]: 167 QRS: 52 QRSD: 157 T: 40 QT: 391 QTc: 485 Interpretive Statements SINUS RHYTHM RIGHT BUNDLE BRANCH BLOCK [120+ ms QRS DURATION, UPRIGHT V1, 40+ ms S IN I/aVL/V4/V5/V6] No previous ECG available for comparison Electronically Signed On 10-20-2023 10:18:24 CDT by Julio Richardson M.D.
[2023-10-19] MEDS: ASPIRIN 81 MG CHEWABLE TABLET 324 MG PO (19:13)
[2023-10-19 19:27] LABS: Basophils Percent Auto 0.3 % (0.2-1.2); Eosinophils Absolute Auto 0.1 K/mm3 (0-0.3); Eosinophils Percent Auto 1.2 % (0-4.4); Hematocrit 40.2 % (42.0-52.0); Immature Granulocyte Absolute 0.02 K/mm3 (0.00-0.031); Immature Granulocyte Percent A 0.3 % (0-0.5); Immature Platelet Fraction Pct 6.8 % (0.9-11.2); Lymphocytes Absolute Auto 1.32 K/mm3 (0.9-3.2); Lymphocytes Percent Auto 17.9 % (18.3-44.2); Mean Corpuscular HGB Conc 34.8 g/dl (32-36); Mean Corpuscular Hemoglobin 31.2 pg (26-34); Mean Corpuscular Volume 89.5 fl (80-100); Mean Platelet Volume 11.2 fl (7.4-10.4); Monocytes Absolute Auto 0.6 K/mm3 (0.1-0.6); Monocytes Percent Auto 8.7 % (2.6-8.5); Neutrophils Absolute Auto 5.3 K/mm3 (1.3-6.7); Neutrophils Percent Auto 71.6 % (45.5-73.1); Platelet Count Result 128 k/mm3 (150-375); Red Blood Count 4.49 M/mm3 (4.6-6.20); Red Cell Distribution Width 13.6 % (11.5-14.5); White Blood Count 7.4 K/mm3 (4.5-10.0)
[2023-10-19 19:34] LABS: Alanine Aminotransferase 48 U/L (6-50); Albumin Level 4.5 g/dL (3.5-5.1); Alkaline Phosphatase 62 U/L (38-126); Anion Gap 15 mmol/L (4-12); Aspartate Amino Transferase 40 U/L (17-59); Blood Urea Nitrogen 21 mg/dL (9-20); Calcium 9.4 mg/dL (8.4-10.2); Carbon Dioxide 20 mmol/L (22-30); Chloride 102 mmol/L (98-107); Estimated CRCL calculation 73 ml/min; Estimated Glomerular Filt Rate 56; Glucose 128 mg/dL (65-110); Lipase 184 U/L (23-300); Potassium 4.1 mmol/L (3.4-5.0); Sodium 137 mmol/L (137-145)
--- NOTE | 2023-10-19 19:45 | ED.GENADULT ---
HPI - General Adult General Chief complaint: Chest Pain Stated complaint: chest pain Time Seen by Provider: 10/19/23 19:36 History of Present Illness HPI narrative: This is a 63-year-old male with a history of coronary artery disease presenting for chest pain. Patient says he was reaching over to tile picker his handicap sticker and when he stood up he developed pain in the center of his chest. It radiates to his left arm. It is moderate intensity and constant. He says this feels similar to when he had heart attack past. He took nitro at home with improvement. There are no exacerbating symptoms. It was associated with diaphoresis. No vomiting. No exertional component. Patient denies fevers chills productive cough or shortness of breath. Patient has a history of CAD stents placed in the LAD and mid circumflex as well as small-vessel desease. Last cath was performed on 02/06/23 by Aquiles. Related Data Home Medications Medication Instructions Recorded Confirmed amlodipine 10 mg tablet 10 mg PO DAILY 01/24/19 10/14/23 bupropion HCl 150 mg tablet,12 hr 150 mg PO BID 01/24/19 10/14/23 sustained-release (Wellbutrin SR) doxazosin 2 mg tablet (Cardura) 2 mg PO HS 01/24/19 10/14/23 dulaglutide 1.5 mg/0.5 mL 1.5 mg subcut WEEKLY 01/24/19 10/14/23 subcutaneous pen injector (Trulicity) metformin 1,000 mg tablet 1,000 mg PO BID 01/24/19 10/14/23 rivaroxaban 2.5 mg tablet (Xarelto) 2.5 mg PO BID 01/24/19 10/14/23 omeprazole 40 mg capsule,delayed 40 mg PO DAILY 04/13/19 10/14/23 release carvedilol 25 mg tablet (Coreg) 25 mg PO BID 04/28/19 10/14/23 atorvastatin 40 mg tablet 80 mg PO HS 05/16/19 10/14/23 albuterol sulfate 90 mcg/actuation 2 puff inhalation Q4-6H PRN 01/09/20 10/14/23 aerosol inhaler (Ventolin HFA) Shortness Of Breath isosorbide mononitrate 60 mg 120 mg PO DAILY 01/09/20 10/14/23 tablet,extended release 24 hr loratadine 10 mg tablet (Claritin) 10 mg PO DAILY 03/15/20 10/14/23 alprazolam 0.25 mg tablet 0.25 mg PO HS 08/21/21 10/14/23 aspirin 81 mg chewable tablet 81 mg PO DAILY 09/29/21 10/14/23 (Children's Aspirin) losartan 100 mg tablet 100 mg PO DAILY 01/17/22 10/14/23 Allergies Allergy/AdvReac Type Severity Reaction Status Date / Time No Known Allergies Allergy Unknown Verified 10/19/23 19:32 [facility] Past Medical History Medical History Angina at rest BMI greater than 40 Cerebrovascular accident Mild left-sided weakness. Chronic anticoagulation Chronic obstructive pulmonary disease Congestive heart failure Coronary artery disease Stent to the distal circumflex and Left anterior descending in 2014. Left anterior descending stent in 04/2015. COVID Deep venous thrombosis Depression Diabetic peripheral neuropathy Fracture of fifth toe, right, closed Gastric ulcer Gastroesophageal reflux disease Hydronephrosis Hyperlipidemia Hypertension Kidney stones Myocardial infarction NSTEMI (non-ST elevated myocardial infarction) Obstructive sleep apnea on CPAP Peripheral vascular disease Pneumonia Psoriasis Seasonal allergies Transient ischemic attack Type 2 diabetes mellitus Surgical History Surgical History History of cardiac catheterization 2 stents History of cholecystectomy History of heart artery stent X2. History of lithotripsy History of rectal polypectomy History of tonsillectomy Family History Family History Mother Diabetes mellitus Arthritis Kidney stones Coronary artery disease Father Acute myocardial infarction Heart disease Kidney stones Hypertension Coronary artery disease Sibling Coronary artery disease Heart disease Hx of CABG Social History Social History Social History: Surrogate decision maker: Rena Dodd, friend. Code
[2023-10-19 19:46] LABS: Troponin I < 0.012 ng/mL (0.000-0.034)
[2023-10-19] MEDS: NITROGLYCERIN OINTMENT 1 INCH DOSE TRANSDERM (20:08)
[2023-10-19] MEDS: MORPHINE SULFATE (*CRX) 4 MG/ML INJ IV PUSH (20:08)
[2023-10-19 20:21] LABS: INR 1.1; Prothrombin Time 14.6 Seconds (11.1-14.7)
[2023-10-19 20:36] LABS: NT Pro B Type Natriuretic Pept < 20 pg/mL (19.9-100)
--- NOTE | 2023-10-19 21:58 | ECG_ITS ---
Test Date: 2023-10-19 22:03:38 Measurements Intervals [place] Rate: 81 P: 81 ID: 177 QRS: 32 QRSD: 154 T: 41 QT: 389 QTc: 454 Interpretive Statements SINUS RHYTHM RIGHT BUNDLE BRANCH BLOCK [120+ ms QRS DURATION, UPRIGHT V1, 40+ ms S IN I/aVL/V4/V5/V6] Compared to ECG 10/19/2023 19:10:33 No significant changes Electronically Signed On 10-20-2023 10:20:38 CDT by Julio Richardson M.D.
[2023-10-19 22:33] LABS: Troponin I < 0.012 ng/mL (0.000-0.034)
== END 2023-10-20 00:14 | disposition home or self-care (01) ==
PROVIDERS: Student in an Organized Health Care Education/Training Program; Emergency Provider Emergency Medicine; PCP Registered Nurse
DX: I20.9 Angina pectoris, unspecified (principal); F17.210 Nicotine dependence, cigarettes, uncomplicated; I69.354 Hemiplegia and hemiparesis following cerebral infarction affecting left non-dominant side; Z79.01 Long term (current) use of anticoagulants; J44.9 Chronic obstructive pulmonary disease, unspecified; I11.0 Hypertensive heart disease with heart failure; I50.9 Heart failure, unspecified; Z86.718 Personal history of other venous thrombosis and embolism; F32.A Depression, unspecified; K21.9 Gastro-esophageal reflux disease without esophagitis; Z87.442 Personal history of urinary calculi; G47.30 Sleep apnea, unspecified; E11.9 Type 2 diabetes mellitus without complications; Z79.84 Long term (current) use of oral hypoglycemic drugs
CPT/HCPCS: 36415; 71046; 80053; 83690; 83880; 84484; 85025; 85055; 85610; 85730; 93005; 96374; 99284; A9270; J2270

== ENCOUNTER 2023-10-25 10:30 | Emergency (ER) | payer MEDICARE, MEDICAID, SELFPAY ==
--- NOTE | ~2023-10-25 | CT_ITS ---
EXAMINATION: CT abdomen pelvis wo con DATE: 10/25/2023 12:47 INDICATION: Right flank pain. TECHNIQUE: Computed tomography (CT) of the abdomen and pelvis was performed without intravenous contr ast. Automated exposure control and iterative reconstruction technique were employed. The dose-length product was 1275.21 mGy-cm. COMPARISON: CT abdomen and pelvis 04/08/2023 FINDINGS: The visualized portions of the lung bases demonstrate mild atelectasis. There is a trace le ft pleural effusion. The heart size is normal. There are coronary artery calcifications. No pericardi al effusion. There is diffuse hepatic steatosis. There are changes of cholecystectomy. The spleen and pancreas are normal. There is a 2.6 cm mass of fat in right adrenal gland, consistent with a myeloli margarita. There are 2 masses of containing fat in left adrenal gland measuring up to 4.2 cm, consistent w ith myelolipomas. There is a 3.1 cm cyst in right kidney. There is a 2 mm stone in right kidney. Ther e is a 2 mm stone in left kidney. The prostate is moderately enlarged. There are no dilated loops of bowel. The appendix is normal. There is a right inguinal hernia containing fat. There is calcified at herosclerosis of the aorta and many of the other arteries. There are no pathologically enlarged lymph nodes. There is no free intraperitoneal fluid. There is mild thoracic and lumbar spondylosis. IMPRESSION: 1. Bilateral nonobstructing kidney stones. 2. Diffuse hepatic steatosis. 3. Right inguinal hernia containing fat. Reviewed, dictated and finalized at location A.
[2023-10-25 10:47] VITALS: BP 138/110; PULSE 85; RESP 18; TEMP 36.6; O2SAT 98
[2023-10-25 11:49] LABS: Basophils Percent Auto 0.3 % (0.2-1.2); Eosinophils Absolute Auto 0.1 K/mm3 (0-0.3); Eosinophils Percent Auto 2.2 % (0-4.4); Hematocrit 42.1 % (42.0-52.0); Hemoglobin 14.4 g/dL (14.0-18.0); Immature Granulocyte Absolute 0.02 K/mm3 (0.00-0.031); Immature Granulocyte Percent A 0.3 % (0-0.5); Immature Platelet Fraction Pct 7.7 % (0.9-11.2); Lymphocytes Absolute Auto 1.08 K/mm3 (0.9-3.2); Lymphocytes Percent Auto 18.6 % (18.3-44.2); Mean Corpuscular HGB Conc 34.2 g/dl (32-36); Mean Corpuscular Hemoglobin 30.9 pg (26-34); Mean Corpuscular Volume 90.3 fl (80-100); Mean Platelet Volume 11.3 fl (7.4-10.4); Monocytes Absolute Auto 0.5 K/mm3 (0.1-0.6); Monocytes Percent Auto 9.1 % (2.6-8.5); Neutrophils Percent Auto 69.5 % (45.5-73.1); Platelet Count Result 134 k/mm3 (150-375); Red Blood Count 4.66 M/mm3 (4.6-6.20); Red Cell Distribution Width 13.6 % (11.5-14.5); White Blood Count 5.8 K/mm3 (4.5-10.0)
[2023-10-25 11:55] LABS: Add Urine Microscopic? YES; Appearance Urine Clear (Clear); Bacteria Urine None Seen /hpf; Bilirubin Urine Negative (Negative); Blood Urine Negative (Negative); Color Urine Yellow (Yellow); Glucose Urine UA Negative (Negative); Ketones Urine Negative (Negative); Leukocyte Esterase Ur Negative LEU/UL (Negative); Nitrate Urine Negative (Negative); Non Pathogenic Casts 0-2; Protein Urine 2+ mg/dL (Negative); RBC Urine 0-2 /hpf (0-2); Specific Grav Ur 1.022 (1.001-1.035); Squamous Epithelial Cell Urine None Seen /hpf (Few); WBC Urine 0-5 /hpf (0-3)
[2023-10-25 11:58] LABS: Alanine Aminotransferase 49 U/L (6-50); Albumin Level 4.5 g/dL (3.5-5.1); Alkaline Phosphatase 59 U/L (38-126); Anion Gap 11 mmol/L (4-12); Aspartate Amino Transferase 43 U/L (17-59); Bilirubin,Total 0.6 mg/dL (0.2-1.3); Blood Urea Nitrogen 15 mg/dL (9-20); Calcium 9.7 mg/dL (8.4-10.2); Carbon Dioxide 24 mmol/L (22-30); Chloride 102 mmol/L (98-107); Estimated CRCL calculation 94 ml/min; Estimated Glomerular Filt Rate > 60; Glucose 117 mg/dL (65-110); Potassium 4.2 mmol/L (3.4-5.0); Sodium 137 mmol/L (137-145)
--- NOTE | 2023-10-25 13:32 | ED.BACK ---
HPI - Back Pain/Injury General Chief Complaint: Urogenital-Male Stated Complaint: right flank pain Time Seen by Provider: 10/25/23 11:36 History of Present Illness HPI Narrative: patient is a 63-year-old male presenting with right flank pain. States he has a history of kidney stones and he thinks this feels similarly. Started this morning around 6:00 a.m.. Reported mild nausea earlier but no vomiting. No dysuria or hematuria. No diarrhea. No further complaints. Related Data Home Medications Medication Instructions Recorded Confirmed amlodipine 10 mg tablet 10 mg PO DAILY 01/24/19 10/14/23 bupropion HCl 150 mg tablet,12 hr 150 mg PO BID 01/24/19 10/14/23 sustained-release (Wellbutrin SR) doxazosin 2 mg tablet (Cardura) 2 mg PO HS 01/24/19 10/14/23 dulaglutide 1.5 mg/0.5 mL 1.5 mg subcut WEEKLY 01/24/19 10/14/23 subcutaneous pen injector (Trulicity) metformin 1,000 mg tablet 1,000 mg PO BID 01/24/19 10/14/23 rivaroxaban 2.5 mg tablet (Xarelto) 2.5 mg PO BID 01/24/19 10/14/23 omeprazole 40 mg capsule,delayed 40 mg PO DAILY 04/13/19 10/14/23 release carvedilol 25 mg tablet (Coreg) 25 mg PO BID 04/28/19 10/14/23 atorvastatin 40 mg tablet 80 mg PO HS 05/16/19 10/14/23 albuterol sulfate 90 mcg/actuation 2 puff inhalation Q4-6H PRN 01/09/20 10/14/23 aerosol inhaler (Ventolin HFA) Shortness Of Breath isosorbide mononitrate 60 mg 120 mg PO DAILY 01/09/20 10/14/23 tablet,extended release 24 hr loratadine 10 mg tablet (Claritin) 10 mg PO DAILY 03/15/20 10/14/23 alprazolam 0.25 mg tablet 0.25 mg PO HS 08/21/21 10/14/23 aspirin 81 mg chewable tablet 81 mg PO DAILY 09/29/21 10/14/23 (Children's Aspirin) losartan 100 mg tablet 100 mg PO DAILY 01/17/22 10/14/23 Allergies Allergy/AdvReac Type Severity Reaction Status Date / Time No Known Allergies Allergy Unknown Verified 10/25/23 10:30 Review of Systems Review of Systems: All systems reviewed & are unremarkable except as noted in HPI and below PMFSH Past Medical History Medical History Angina at rest BMI greater than 40 Cerebrovascular accident Mild left-sided weakness. Chronic anticoagulation Chronic obstructive pulmonary disease Congestive heart failure Coronary artery disease Stent to the distal circumflex and Left anterior descending in 2014. Left anterior descending stent in 04/2015. COVID Deep venous thrombosis Depression Diabetic peripheral neuropathy Fracture of fifth toe, right, closed Gastric ulcer Gastroesophageal reflux disease Hydronephrosis Hyperlipidemia Hypertension Kidney stones Myocardial infarction NSTEMI (non-ST elevated myocardial infarction) Obstructive sleep apnea on CPAP Peripheral vascular disease Pneumonia Psoriasis Seasonal allergies Transient ischemic attack Type 2 diabetes mellitus Surgical History Surgical History History of cardiac catheterization 2 stents History of cholecystectomy History of heart artery stent X2. History of lithotripsy History of rectal polypectomy History of tonsillectomy Family History Family History Mother Diabetes mellitus Arthritis Kidney stones Coronary artery disease Father Acute myocardial infarction Heart disease Kidney stones Hypertension Coronary artery disease Sibling Coronary artery disease Heart disease Hx of CABG Social History Social History Social History: Surrogate decision maker: Rena Dodd, friend. Code status: Full code. Smoking packs per day: 0.4 Smoking cigarettes per day: 8.0 Years smoked: 45 Smoking pack-years: 18.00 Smoking status: Current every day smoker Tobacco type: cigarettes Second hand tobacco smoke exposure: No Alcohol intake: never Substance use: never Subst
[2023-10-25] MEDS: CYCLOBENZAPRINE HCL 10 MG TABLET PO (13:34)
[2023-10-25] MEDS: KETOROLAC 15 MG/ML VIAL (*BKC) IV PUSH (13:35)
[2023-10-25 13:38] VITALS: BP 148/91; PULSE 78; RESP 16; TEMP 36.6; O2SAT 99
== END 2023-10-25 13:51 | disposition home or self-care (01) ==
PROVIDERS: Emergency Provider Emergency Medicine; PCP Registered Nurse
DX: M79.18 Myalgia, other site (principal); I11.0 Hypertensive heart disease with heart failure; I50.9 Heart failure, unspecified; I25.2 Old myocardial infarction; E11.9 Type 2 diabetes mellitus without complications; F17.210 Nicotine dependence, cigarettes, uncomplicated
CPT/HCPCS: 36415; 74176; 80053; 81001; 85025; 85055; 96374; 99284; A9270; J1885

== ENCOUNTER 2023-11-04 18:41 | Emergency (ER) | payer MEDICARE, MEDICAID, SELFPAY ==
--- NOTE | ~2023-11-04 | XR_ITS ---
EXAMINATION: XR chest 2V DATE: 11/04/2023 18:58 INDICATION: Shortness of breath. Cough. TECHNIQUE: Frontal and lateral views of the chest were obtained. COMPARISON: Chest 2 views 10/19/2023, CT abdomen and pelvis 10/25/2023 FINDINGS: There is no pneumonia, pleural effusion, or pneumothorax. The heart size is normal. There i s an electronic implant in left anterior chest wall. IMPRESSION: 1. No acute cardiopulmonary disease. Reviewed, dictated and finalized at location A.
[2023-11-04 18:45] VITALS: BP 135/73; PULSE 91; RESP 24; TEMP 36.5; O2SAT 97
--- NOTE | 2023-11-04 18:47 | ED.URI ---
HPI - URI/Sore Throat General Chief Complaint: Upper Respiratory Infection Stated Complaint: COUGH Time Seen by Provider: 11/04/23 18:47 Source: patient Mode of arrival: ambulatory Limitations: no limitations History of Present Illness HPI Narrative: Vini is a 63-year-old male patient presenting to the clinic today with complaints of a nonproductive cough, shortness of breath, body aches, and runny nose. He reports the symptoms started around 9:00 a.m. this morning. He has not taken anything for his symptoms. History of COPD, congestive heart failure, pneumonia. MD elicited complaint: cough, nasal congestion and other (Shortness of breath) Related Data Home Medications Medication Instructions Recorded Confirmed amlodipine 10 mg tablet 10 mg PO DAILY 01/24/19 10/14/23 bupropion HCl 150 mg tablet,12 hr 150 mg PO BID 01/24/19 10/14/23 sustained-release (Wellbutrin SR) doxazosin 2 mg tablet (Cardura) 2 mg PO HS 01/24/19 10/14/23 dulaglutide 1.5 mg/0.5 mL 1.5 mg subcut WEEKLY 01/24/19 10/14/23 subcutaneous pen injector (Trulicity) metformin 1,000 mg tablet 1,000 mg PO BID 01/24/19 10/14/23 rivaroxaban 2.5 mg tablet (Xarelto) 2.5 mg PO BID 01/24/19 10/14/23 omeprazole 40 mg capsule,delayed 40 mg PO DAILY 04/13/19 10/14/23 release carvedilol 25 mg tablet (Coreg) 25 mg PO BID 04/28/19 10/14/23 atorvastatin 40 mg tablet 80 mg PO HS 05/16/19 10/14/23 albuterol sulfate 90 mcg/actuation 2 puff inhalation Q4-6H PRN 01/09/20 10/14/23 aerosol inhaler (Ventolin HFA) Shortness Of Breath isosorbide mononitrate 60 mg 120 mg PO DAILY 01/09/20 10/14/23 tablet,extended release 24 hr loratadine 10 mg tablet (Claritin) 10 mg PO DAILY 03/15/20 10/14/23 alprazolam 0.25 mg tablet 0.25 mg PO HS 08/21/21 10/14/23 aspirin 81 mg chewable tablet 81 mg PO DAILY 09/29/21 10/14/23 (Children's Aspirin) losartan 100 mg tablet 100 mg PO DAILY 01/17/22 10/14/23 Allergies Allergy/AdvReac Type Severity Reaction Status Date / Time No Known Allergies Allergy Unknown Verified 11/04/23 18:53 Review of Systems Review of Systems: Pertinent positives per HPI. Patient denies any fever, chills, rash, headache, visual changes, dizziness, chest pain, palpitations, nausea, vomiting, diarrhea, constipation, abdominal pain, or any urinary issues. [facility] Past Medical History Medical History Angina at rest BMI greater than 40 Cerebrovascular accident Mild left-sided weakness. Chronic anticoagulation Chronic obstructive pulmonary disease Congestive heart failure Coronary artery disease Stent to the distal circumflex and Left anterior descending in 2014. Left anterior descending stent in 04/2015. COVID Deep venous thrombosis Depression Diabetic peripheral neuropathy Fracture of fifth toe, right, closed Gastric ulcer Gastroesophageal reflux disease Hydronephrosis Hyperlipidemia Hypertension Kidney stones Myocardial infarction NSTEMI (non-ST elevated myocardial infarction) Obstructive sleep apnea on CPAP Peripheral vascular disease Pneumonia Psoriasis Seasonal allergies Transient ischemic attack Type 2 diabetes mellitus Surgical History Surgical History History of cardiac catheterization 2 stents History of cholecystectomy History of heart artery stent X2. History of lithotripsy History of rectal polypectomy History of tonsillectomy Family History Family History Mother Diabetes mellitus Arthritis Kidney stones Coronary artery disease Father Acute myocardial infarction Heart disease Kidney stones Hypertension Coronary artery disease Sibling Coronary artery disease Heart disease Hx of CABG Social History Social History Social History: Surrogate decision maker: Rena
== END 2023-11-04 19:11 | disposition home or self-care (01) ==
PROVIDERS: Emergency Provider Nurse Practitioner Family; PCP Registered Nurse
DX: R05.1 Acute cough (principal); R06.02 Shortness of breath; Z20.822 Contact with and (suspected) exposure to COVID-19; F17.210 Nicotine dependence, cigarettes, uncomplicated; I69.354 Hemiplegia and hemiparesis following cerebral infarction affecting left non-dominant side; I11.0 Hypertensive heart disease with heart failure; I50.9 Heart failure, unspecified; J44.9 Chronic obstructive pulmonary disease, unspecified; I25.110 Atherosclerotic heart disease of native coronary artery with unstable angina pectoris; E11.42 Type 2 diabetes mellitus with diabetic polyneuropathy; Z79.84 Long term (current) use of oral hypoglycemic drugs; K21.9 Gastro-esophageal reflux disease without esophagitis; E78.5 Hyperlipidemia, unspecified; I25.2 Old myocardial infarction; G47.33 Obstructive sleep apnea (adult) (pediatric); I73.9 Peripheral vascular disease, unspecified; Z86.718 Personal history of other venous thrombosis and embolism; Z86.16 Personal history of COVID-19; Z95.5 Presence of coronary angioplasty implant and graft
CPT/HCPCS: 71046; 87426; 99213; G0463

== ENCOUNTER 2023-12-24 20:44 | Observation (INO) | payer MEDICARE, MEDICAID, SELFPAY ==
--- NOTE | ~2023-12-24 | CT_ITS ---
EXAMINATION: CTA BRAIN/CAROTID DATE: 12/24/2023 21:46 INDICATION: Left-sided weakness and vertigo TECHNIQUE: Computed tomographic angiography (CTA) of the head and neck was performed with 100 mL Omni paque-350 intravenous contrast. Multiplanar reconstructions and maximum intensity projection 3D-recon structions of the carotid arteries and of the intracranial arteries were created by the technologist on a separate workstation. Precontrast CT of the head was also obtained. Automated exposure control and iterative reconstruction technique were employed.The dose-length product was 1698.05 mGy-cm. COMPARISON: 01/24/2023 FINDINGS: Carotid arteries: Minimal atherosclerotic calcification along the visualized portion of the aortic arch which is normal in caliber. There is 0% stenosis of the right and left carotid bulbs relative to normal distal arter y lumen diameter (NASCET criteria). Bilateral extracranial vertebral arteries are codominant with no evident stenosis. Multiple sialoliths at the right parotid gland. Anterior fusion at C5-C6 with other ring mild to moderate cervical and upper thoracic spondylosis.. Minimal emphysema at the right apex. Head: Again seen is an old small infarct at the right frontoparietal aguayo radiata. Additional small old l acunar infarct at the body of the left caudate nucleus which is new since the prior study. There is m ild scattered white matter hypoattenuation consistent with chronic small vessel ischemic disease. No acute intracranial hemorrhage, acute infarction or abnormal extra axial fluid collection. Ventricles are normal and symmetric. No mass/mass effect. The orbits, paranasal sinuses and mastoid air cells ar e normal. Intracranial arteries Vertebral arteries are codominant. There is no hemodynamically significant stenosis in the vertebral, basilar and internal carotid arteries. There are no aneurysms identified. Both A1 and P1 segments a re patent. Cerebral arterial arborization appears symmetric. No abnormally enhancing brain lesions. IMPRESSION: 1. 0% stenosis of the right and left carotid bulbs relative to normal distal artery lumen diameter (N ASCET criteria). 2. Unremarkable cerebral CT angiogram with no minimally significant stenosis, aneurysm or thrombosis. 3. Small old infarcts in the right frontoparietal aguayo radiata and at the body of the left caudate nucleus. No acute intracranial process. Reviewed, dictated and finalized at location A. IMPRESSION: 1. 0% stenosis of the right and left carotid bulbs relative to normal distal ar wing lumen diameter (NASCET criteria). 2. Unremarkable cerebral CT angiogram with no minimally significant stenosis, a neurysm or thrombosis. 3. Small old infarcts in the right frontoparietal aguayo radiata and at the bod y of the left caudate nucleus. No acute intracranial process.
--- NOTE | ~2023-12-24 | MR_ITS ---
EXAMINATION: MRA brain wo con DATE: 12/25/2023 09:32 INDICATION: Left hemiparesis. Dizziness. TECHNIQUE: Magnetic resonance angiography (MRA) of the brain was performed without intravenous contra st with T1-weighted SPGR by the 3D [id number] technique. Maximum intensity projection 3D-reconstr uctions were obtained. COMPARISON: Brain MRI 05/05/2022, CTA 12/24/2023 FINDINGS: The vertebral arteries are codominant. There is no significant stenosis of basilar artery or the post erior cerebral arteries. There is no significant stenosis of the intracranial internal carotid arteri es or anterior or middle cerebral arteries. Anterior communicating artery is normal. Posterior commun icating arteries are not identified. There is no aneurysm. IMPRESSION: 1. Normal MRA. Reviewed, dictated and finalized at location A. IMPRESSION: 1. Normal MRA.
--- NOTE | ~2023-12-24 | XR_ITS ---
EXAMINATION: XR chest 1V portable DATE: 12/24/2023 21:26 INDICATION: Left-sided weakness TECHNIQUE: frontal view of the chest was obtained. COMPARISON: Chest radiograph dated 11/04/2023 FINDINGS: The lungs are clear with no focal airspace opacities, pulmonary edema, pleural effusion or pneumothor ax. The cardiomediastinal silhouette is normal. 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 IMPRESSION: 1. No acute cardiopulmonary disease. Reviewed, dictated and finalized at location A.
[2023-12-24 20:45] VITALS: BP 124/70; PULSE 97; RESP 19; TEMP 36.6; O2SAT 97
--- NOTE | 2023-12-24 21:14 | ECG_ITS ---
Test Date: 2023-12-24 22:04:07 Measurements Intervals [place] Rate: 89 P: 52 [place]: 172 QRS: 26 QRSD: 152 T: 34 QT: 413 QTc: 504 Interpretive Statements SINUS RHYTHM WITH SINUS ARRHYTHMIA RIGHT BUNDLE BRANCH BLOCK [120+ ms QRS DURATION, UPRIGHT V1, 40+ ms S IN I/aVL/V4/V5/V6] Compared to ECG 10/19/2023 22:03:38 No significant changes Electronically Signed On 12-25-2023 15:31:23 CDT by Julio Richardson M.D.
[2023-12-24 21:31] LABS: Basophils Percent Auto 0.2 % (0.2-1.2); Eosinophils Absolute Auto 0.2 K/mm3 (0-0.3); Hematocrit 42.4 % (42.0-52.0); Hemoglobin 14.8 g/dL (14.0-18.0); Immature Granulocyte Absolute 0.03 K/mm3 (0.00-0.031); Immature Granulocyte Percent A 0.4 % (0-0.5); Lymphocytes Absolute Auto 1.48 K/mm3 (0.9-3.2); Lymphocytes Percent Auto 17.6 % (18.3-44.2); Mean Corpuscular HGB Conc 34.9 g/dl (32-36); Mean Corpuscular Hemoglobin 31.4 pg (26-34); Mean Platelet Volume 11.7 fl (7.4-10.4); Monocytes Absolute Auto 0.8 K/mm3 (0.1-0.6); Monocytes Percent Auto 9.3 % (2.6-8.5); Neutrophils Absolute Auto 5.9 K/mm3 (1.3-6.7); Neutrophils Percent Auto 70.5 % (45.5-73.1); Platelet Count Result 153 k/mm3 (150-375); Red Blood Count 4.71 M/mm3 (4.6-6.20); Red Cell Distribution Width 13.1 % (11.5-14.5); White Blood Count 8.4 K/mm3 (4.5-10.0)
--- NOTE | 2023-12-24 21:34 | ED_ITS ---
HPI - Dizziness General Chief Complaint: Dizziness Stated Complaint: dizziness/nausea Time Seen by Provider: 12/24/23 20:56 Source: patient Mode of arrival: ambulatory Limitations: no limitations History of Present Illness HPI Narrative: This is a 63-year-old male, with history of stroke with residual left-sided we akness and numbness, who presents to the emergency department complaining vertigo, nausea and worsening left-sided symptoms beginning at 14:30 today. The patient reports he has recently had some cough productive of nonbloody sputum associated with upper respiratory congestion. He noted quick onset worsening of his symptoms without other new weakness, numbness, change/loss of vision or hearing. He states the vertigo worsens with change in position. He had 1 episode of lightheadedness with standing, though denies loss of consciousness. He has no other complaints at this time. Related Data Home Medications Medication Instructions Recorded Confirmed amlodipine 10 mg tablet 10 mg PO DAILY 01/24/19 12/25/23 bupropion HCl 150 mg tablet,12 hr 150 mg PO BID 01/24/19 12/25/23 sustained-release (Wellbutrin SR) doxazosin 2 mg tablet (Cardura) 2 mg PO HS 01/24/19 12/25/23 dulaglutide 1.5 mg/0.5 mL 1.5 mg subcut WEEKLY 01/24/19 12/25/23 subcutaneous pen injector (Trulicity) metformin 1,000 mg tablet 1,000 mg PO BID 01/24/19 12/25/23 rivaroxaban 2.5 mg tablet (Xarelto) 2.5 mg PO BID 01/24/19 12/25/23 omeprazole 40 mg capsule,delayed 40 mg PO DAILY 04/13/19 12/25/23 release atorvastatin 40 mg tablet 80 mg PO HS 05/16/19 12/25/23 albuterol sulfate 90 mcg/actuation 2 puff inhalation Q4-6H PRN 01/09/20 12/25/23 aerosol inhaler (Ventolin HFA) Shortness Of Breath isosorbide mononitrate 60 mg 120 mg PO DAILY 01/09/20 12/25/23 tablet,extended release 24 hr loratadine 10 mg tablet (Claritin) 10 mg PO DAILY 03/15/20 12/25/23 alprazolam 0.25 mg tablet 0.25 mg PO HS 08/21/21 12/25/23 aspirin 81 mg chewable tablet 81 mg PO DAILY 09/29/21 12/25/23 (Children's Aspirin) tamsulosin 0.4 mg capsule 0.4 mg PO DAILY 12/25/23 12/25/23 Allergies Allergy/AdvReac Type Severity Reaction Status Date / Time No Known Allergies Allergy Unknown Verified 12/24/23 20:52 Review of Systems Review of Systems: All systems reviewed & are unremarkable except as noted in HPI and below [facility] Past Medical History Medical History Angina at rest BMI greater than 40 Cerebrovascular accident Mild left-sided weakness. Chronic anticoagulation Chronic obstructive pulmonary disease Congestive heart failure Coronary artery disease Stent to the distal circumflex and Left anterior descending in 2014. Left anterior descending stent in 04/2015. COVID Deep venous thrombosis Depression Diabetic peripheral neuropathy Fracture of fifth toe, right, closed Gastric ulcer Gastroesophageal reflux disease Hydronephrosis Hyperlipidemia Hypertension Kidney stones Myocardial infarction NSTEMI (non-ST elevated myocardial infarction) Obstructive sleep apnea on CPAP Peripheral vascular disease Pneumonia Psoriasis Seasonal allergies Transient ischemic attack Type 2 diabetes mellitus Surgical History Surgical History History of cardiac catheterization 2 stents History of cholecystectomy History of heart artery stent X2. History of lithotripsy History of rectal polypectomy History of tonsillectomy Family History Family History Mother Diabetes mellitus Arthritis Kidney stones Coronary artery disease Father Acute myocardial infarction Heart disease Kidney stones Hypertension Coronary artery disease Sibling Coronary artery disease Heart disease Hx of CABG Social History Social History Social History: Surrogate decision maker: Rena Dodd, friend. Code status: Full code. Smoking packs per day: 0.5 Smoking cigarettes per day: 10.0 Years smoked: 44 Smoking pack-years: 22.00 Smoking status: Current every day smoker Tobacco type: cigarettes Second hand tobacco smoke exposure: Yes Alcohol intake: never Substance use: never Substance use type: does not use Do You Feel Safe in your Home?: Yes Lack of Transportation: No Lack of Food: Never True Current Housing: I Have Housing Concerned About Future Housing: No Difficulty Paying Gas/Electric Bills: No Difficulty Paying for Meds: No Currently Unemployed: No Education: High School Diploma/GED Difficulty w/ Childcare or Family Care: No Living arrangements: with roommate(s) Additional living arrangements comments: The patient lives in [place] with a roommate. He has no children. Occupation/Education: other Additional occupation/education comments: Disabled. Spiritual care concerns: No Exam Narrative: GENERAL: Well-developed, well-nourished, and in no acute distress. HEAD: Normocephalic, atraumatic. EYES: PERRLA and EOMI. ENT: Right inferior middle turbinate swelling and mild erythema, small amount of clear rhinorrhea, no epistaxis. Mucous membranes moist. Oropharynx without tonsillar hypertrophy exudate or other lesions. Bilateral TMs pearly davis and bulging NECK: Supple. No adenopathy or masses. CHEST: Clear to auscultation. No respiratory distress. No wheezes rales or rhonchi HEART: Regular rate and rhythm. No murmur heard. Normal peripheral pulses. ABDOMEN: Soft, nontender, nondistended, normal active bowel sounds. EXTREMITIES: Normal range of motion. No edema. SKIN: Warm, dry, no rash. NEURO: Alert and oriented x3. Left facial, left upper and lower extremity decreased sensation compared to the right. Mild left upper extremity drift compared to the right. Mild left lower extremity drift compared to the right. No noted ataxia. HINTS exam elicits mild nystagmus with head movement to the left. [place]-Hallpike maneuver elicits nystagmus towards the left. PSYCH: Normal mood and affect. Course Course Emergency Course: 22:49 - CBC unremarkable. Chemistries unremarkable. Troponin negative. UA shows trace ketones and 1+ bilirubin but is otherwise unremarkable. Urine drug screen positive for benzodiazepines (the patient takes Xanax at night for insomnia with last dose yesterday). Chest x-ray not concerning for acute cardiopulmonary process. The patient tested negative for influenza and COVID. CTA brain and neck negative for acute intracranial process though does show prior your ischemic changes in the frontotemporal aguayo radiata. I discussed the patient with neurologist, Dr. Last who agrees with observation with recommendation for MRI. Vital Signs Vital signs: Vital Signs Temperature 97.8 F 12/24/23 20:45 Pulse Rate 97 12/24/23 20:45 Respiratory Rate 19 10/24/24 20:45 Blood Pressure 124/70 12/24/23 20:45 Pulse Oximetry 97 12/24/23 20:45 Oxygen Delivery Room Air 12/24/23 20:45 Temperature 97.2 F L 12/25/23 06:00 Pulse Rate 80 12/25/23 06:00 Respiratory Rate 16 12/25/23 06:00 Blood Pressure 143/84 H 12/25/23 06:00 Pulse Oximetry 96 12/25/23 06:00 Oxygen Delivery CPAP 12/25/23 03:04 MDM - Dizziness MDM Narrative Medical decision making narrative: Plan: Labs, imaging, EKG, reassess Differential Diagnosis Differential diagnosis: Likely benign paroxysmal positional vertigo and other (Viral upper respiratory infection, COVID, pneumonia, stroke, intracranial hemorrhage, dehydration, metabolic abnormality, other) Lab Data 12/25/23 07:13 12/25/23 07:13 Labs: Lab Results 12/24/23 12/24/23 12/24/23 Range/Units 21:25 21:34 21:49 WBC 8.4 (4.5-10.0) K/mm3 RBC 4.71 (4.6-6.20) M/mm3 Hgb 14.8 (14.0-18.0) g/dL Hct 42.4 (42.0-52.0) % MCV 90.0 (80-100) fl MCH 31.4 (26-34) pg MCHC 34.9 (32-36) g/dl RDW 13.1 (11.5-14.5) % Plt Count 153 (150-375) k/mm3 MPV 11.7 H (7.4-10.4) fl Immature Gran % (Auto) 0.4 (0-0.5) % Neut % (Auto) 70.5 (45.5-73.1) % Lymph % (Auto) 17.6 L (18.3-44.2) % [place] % (Auto) 9.3 H (2.6-8.5) % Eos % (Auto) 2.0 (0-4.4) % Baso % (Auto) 0.2 (0.2-1.2) % Lymph # (Auto) 1.48 (0.9-3.2) K/mm3 [place] # (Auto) 0.8 H (0.1-0.6) K/mm3 Eos # (Auto) 0.2 (0-0.3) K/mm3 Baso # (Auto) 0.0 (0.0-0.1) K/mm3 Abs Immat Gran (auto) 0.03 (0.00-0.031) K/mm3 Absolute Neuts (auto) 5.9 (1.3-6.7) K/mm3 Absolute Nucleated RBC 0.000 (0.0-0.012) K/mm3 Nucleated RBC % 0.0 (0.0-0.2) % PT 14.9 H (11.1-14.7) Seconds INR 1.1 Sodium 137 (137-145) mmol/L Potassium 4.4 (3.4-5.0) mmol/L Chloride 101 (98-107) mmol/L Carbon Dioxide 25 (22-30) mmol/L Anion Gap 11 (4-12) mmol/L BUN 21 H (9-20) mg/dL Creatinine 1.30 1.40 (0.7-1.3) mg/dL Estim Creat Clear Calc 73 68 ml/min Estimated GFR 56 L 51 L (59 - ) Glucose 99 (65-110) mg/dL Calcium 9.6 (8.4-10.2) mg/dL Total Bilirubin 1.0 (0.2-1.3) mg/dL AST 50 (17-59) U/L ALT 47 (6-50) U/L Alkaline Phosphatase 63 (38-126) U/L Troponin I < 0.012 (0.000-0.034) ng/mL Total Protein 8.0 (6.3-8.2) g/dL Albumin 4.5 (3.5-5.1) g/dL Urine Color (Yellow) Urine Appearance (Clear) Urine pH (5.0-9.0) Ur Specific [place] (1.001-1.035) Urine Protein (Negative) mg/dL Urine Glucose (UA) (Negative) mg/dL Urine Ketones (Negative) mg/dL Ur Blood (Man) (Negative) Urine Nitrate (Negative) Urine Bilirubin (Negative) Urine Urobilinogen (<2.0) mg/dL Add Ur Microanalysis Leukocyte Esterase Rfl (Negative) JAVIER/UL Urine RBC (0-2) /hpf Urine WBC (0-3) /hpf Ur Squamous Epith Cells (Few) /hpf Urine Bacteria /hpf Urine Casts Hyaline Casts (None) /lpf Urine Opiates Screen (Negative) Urine Methadone Screen (Negative) Ur Barbiturates Screen (Negative) Ur Phencyclidine Scrn (Negative) Ur Amphetamine Screen (Negative) U Benzodiazepines Scrn (Negative) Urine Cocaine Screen (Negative) U Cannabinoids Screen (Negative) Ethyl Alcohol < 10 (<10) mg/dL Influenza A (RT-PCR) Negative (Negative) Influenza B (RT-PCR) Negative (Negative) SARS-CoV-2 RNA (RT-PCR) Negative (Negative) 12/24/23 Range/Units 22:00 WBC (4.5-10.0) K/mm3 RBC (4.6-6.20) M/mm3 Hgb (14.0-18.0) g/dL Hct (42.0-52.0) % MCV (80-100) fl MCH (26-34) pg MCHC (32-36) g/dl RDW (11.5-14.5) % Plt Count (150-375) k/mm3 MPV (7.4-10.4) fl Immature Gran % (Auto) (0-0.5) % Neut % (Auto) (45.5-73.1) % Lymph % (Auto) (18.3-44.2) % [place] % (Auto) (2.6-8.5) % Eos % (Auto) (0-4.4) % Baso % (Auto) (0.2-1.2) % Lymph # (Auto) (0.9-3.2) K/mm3 [place] # (Auto) (0.1-0.6) K/mm3 Eos # (Auto) (0-0.3) K/mm3 Baso # (Auto) (0.0-0.1) K/mm3 Abs Immat Gran (auto) (0.00-0.031) K/mm3 Absolute Neuts (auto) (1.3-6.7) K/mm3 Absolute Nucleated RBC (0.0-0.012) K/mm3 Nucleated RBC % (0.0-0.2) % PT (11.1-14.7) Seconds INR Sodium (137-145) mmol/L Potassium (3.4-5.0) mmol/L Chloride (98-107) mmol/L Carbon Dioxide (22-30) mmol/L Anion Gap (4-12) mmol/L BUN (9-20) mg/dL Creatinine (0.7-1.3) mg/dL Estim Creat Clear Calc ml/min Estimated GFR (59 - ) Glucose (65-110) mg/dL Calcium (8.4-10.2) mg/dL Total Bilirubin (0.2-1.3) mg/dL AST (17-59) U/L ALT (6-50) U/L Alkaline Phosphatase (38-126) U/L Troponin I (0.000-0.034) ng/mL Total Protein (6.3-8.2) g/dL Albumin (3.5-5.1) g/dL Urine Color Dark yellow (Yellow) Urine Appearance Cloudy H (Clear) Urine pH 5.5 (5.0-9.0) Ur Specific [place] 1.037 H (1.001-1.035) Urine Protein 3+ H (Negative) mg/dL Urine Glucose (UA) Negative (Negative) mg/dL Urine Ketones Trace H (Negative) mg/dL Ur Blood (Man) Negative (Negative) Urine Nitrate Negative (Negative) Urine Bilirubin 1+ H (Negative) Urine Urobilinogen 1.0 (<2.0) mg/dL Add Ur Microanalysis Reviewed Leukocyte Esterase Rfl Negative (Negative) JAVIER/UL Urine RBC 0-2 (0-2) /hpf Urine WBC 0-5 (0-3) /hpf Ur Squamous Epith Cells Occasional (Few) /hpf Urine Bacteria None seen /hpf Urine Casts >20 Hyaline Casts Present (None) /lpf Urine Opiates Screen Negative (Negative) Urine Methadone Screen Negative (Negative) Ur Barbiturates Screen Negative (Negative) Ur Phencyclidine Scrn Negative (Negative) Ur Amphetamine Screen Negative (Negative) U Benzodiazepines Scrn Positive A (Negative) Urine Cocaine Screen Negative (Negative) U Cannabinoids Screen Negative (Negative) Ethyl Alcohol (<10) mg/dL Influenza A (RT-PCR) (Negative) Influenza B (RT-PCR) (Negative) SARS-CoV-2 RNA (RT-PCR) (Negative) ECG Data EKG #1: Attestation: I personally reviewed and interpreted this ECG as follows: ECG completion date: 12/24/23 ECG completion time: 22:04 Prior ECG tracings: available for review Interpretation: Sinus rhythm, rate 89, right bundle branch block, no ST segment elevations concerning for ischemia, T-wave inversion in V2 and V3. Otherwise normal inte rvals with QTC of 460. No significant change compared to EKG done in Discharge Plan Discharge Clinical Impression: Vertigo, Acute left-sided weakness, Left sided numbness Patient Disposition: Still a Patient Condition: Serious Time of Disposition: 22:50
[2023-12-24 21:37] LABS: Estimated CRCL calculation 68 ml/min; Estimated Glomerular Filt Rate 51
[2023-12-24 21:42] LABS: Alanine Aminotransferase 47 U/L (6-50); Albumin Level 4.5 g/dL (3.5-5.1); Alkaline Phosphatase 63 U/L (38-126); Anion Gap 11 mmol/L (4-12); Aspartate Amino Transferase 50 U/L (17-59); Blood Urea Nitrogen 21 mg/dL (9-20); Calcium 9.6 mg/dL (8.4-10.2); Carbon Dioxide 25 mmol/L (22-30); Chloride 101 mmol/L (98-107); Estimated CRCL calculation 73 ml/min; Estimated Glomerular Filt Rate 56; Glucose 99 mg/dL (65-110); INR 1.1; Potassium 4.4 mmol/L (3.4-5.0); Prothrombin Time 14.9 Seconds (11.1-14.7); Sodium 137 mmol/L (137-145)
[2023-12-24 21:45] LABS: Ethanol < 10 mg/dL (<10)
[2023-12-24 21:57] LABS: Troponin I < 0.012 ng/mL (0.000-0.034)
[2023-12-24] MEDS: SODIUM CHLORIDE 0.9% IV 1,000 ML 999 ML IV CONT (21:59)
[2023-12-24 22:02] VITALS: PULSE 88
[2023-12-24 22:18] LABS: Add Urine Microscopic? YES; Appearance Urine Cloudy (Clear); Bacteria Urine None Seen /hpf; Bilirubin Urine 1+ (Negative); Blood Urine Negative (Negative); Color Urine Dark Yellow (Yellow); Glucose Urine UA Negative (Negative); Hyaline Casts Urine Present /lpf; Ketones Urine Trace mg/dL (Negative); Leukocyte Esterase Ur Negative LEU/UL (Negative); Need Manual Microscopic Reviewed; Nitrate Urine Negative (Negative); Non Pathogenic Casts >20; Protein Urine 3+ mg/dL (Negative); RBC Urine 0-2 /hpf (0-2); Specific Grav Ur 1.037 (1.001-1.035); Squamous Epithelial Cell Urine Occasional /hpf (Few); WBC Urine 0-5 /hpf (0-3); pH Urine 5.5 (5.0-9.0)
[2023-12-24 22:29] LABS: Amphetamine Screen Urine Negative (Negative); Barbiturate Screen Urine Negative (Negative); Benzodiazepines Screen Urine Positive (Negative); Cannabinoid Screen Urine Negative (Negative); Cocaine Screen Urine Negative (Negative); Methadone Screen Urine Negative (Negative); Opiate Screen Urine Negative (Negative); Phencyclidine Screen Urine Negative (Negative)
[2023-12-24 22:37] LABS: Influenza A QL RT-PCR Negative (Negative); Influenza B QL RT-PCR Negative (Negative); SARS-CoV-2 RNA PCR Negative (Negative)
[2023-12-24 23:00] VITALS: BP 136/74; PULSE 86; RESP 16; TEMP 36.6; O2SAT 100
[2023-12-25] VITALS (7 sets, daily range): BP systolic 143–167; BP diastolic 65–87; PULSE 73–83; RESP 16–18; TEMP 35.7–36.6; O2SAT 96–100; BMI 42.6
--- NOTE | 2023-12-25 00:20 | ADMGEN ---
This patient, Vini Zambrano, was admitted to [facility] S[facility] Room 315-02. Patient/family oriented to hospital policies and general routines including ID bracelet, bed and alarms, visiting hours, pain management, procedures, bathroom and other care routines, personal items, smoking policy, room service/diet, and visiting hours. Information on how to activate the Rapid Response Team has been discussed. Patient/Family are encouraged to report perceived risks to care and to ask questions if they do not understand what they are told or what they should do.
[2023-12-25 00:54] LABS: Glucose Point of Care 171 mg/dl (65-105)
[2023-12-25] MEDS: ALPRAZolam (*CRX) 0.25 MG TABLET PO (03:18)
--- NOTE | 2023-12-25 05:34 | PM.IMHP ---
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 Patient presents with complaint of dizziness. Around 3:00 p.m. on 12/24/2023 the patient was on a ladder fixing a ceiling fan when he noticed he was dizzy and he had worsened left-sided numbness. He denies fainting, increased weakness, change in vision. He has had balance difficulties for many years and that is unchanged. He feels at the time it was difficult for him to speak. [facility] ER evaluation demonstrated hemodynamically stable male. Urine drug screen positive for benzodiazepines and he does take these chronically at home. Chest x-ray without acute cardiopulmonary disease. Head and neck CTA with 0% stenosis of the right and left carotid bulbs relative to normal distal artery lumen diameter, unremarkable cerebral CT angiogram, small old infarct in right frontoparietal aguayo radiata and at the body of the left caudate nucleus. No acute findings. Dr. Last contacted from the ER and suggest MRI of the brain. Hospice service contacted for admission for observation. At the time of this leader writer's evaluation later in the ER course the patient reports he has improved sensation but is numbness is still worse than his usual. He otherwise has no complaints. Review of Systems Review of Systems: All systems reviewed & are unremarkable except as noted in HPI and below (Subjective) [facility] Past Medical History Medical History Angina at rest BMI greater than 40 Cerebrovascular accident Mild left-sided weakness. Chronic anticoagulation Chronic obstructive pulmonary disease Congestive heart failure Coronary artery disease Stent to the distal circumflex and Left anterior descending in 2014. Left anterior descending stent in 04/2015. COVID Deep venous thrombosis Depression Diabetic peripheral neuropathy Fracture of fifth toe, right, closed Gastric ulcer Gastroesophageal reflux disease Hydronephrosis Hyperlipidemia Hypertension Kidney stones Myocardial infarction NSTEMI (non-ST elevated myocardial infarction) Obstructive sleep apnea on CPAP Peripheral vascular disease Pneumonia Psoriasis Seasonal allergies Transient ischemic attack Type 2 diabetes mellitus Surgical History Surgical History History of cardiac catheterization 2 stents History of cholecystectomy History of heart artery stent X2. History of lithotripsy History of rectal polypectomy History of tonsillectomy Family History Family History Mother Diabetes mellitus Arthritis Kidney stones Coronary artery disease Father Acute myocardial infarction Heart disease Kidney stones Hypertension Coronary artery disease Sibling Coronary artery disease Heart disease Hx of CABG Social History Social History Social History: Surrogate decision maker: Renacornell Dodd, friend. Code status: Full code. Smoking packs per day: 0.5 Smoking cigarettes per day: 10.0 Years smoked: 44 Smoking pack-years: 22.00 Smoking status: Current every day smoker Tobacco type: cigarettes Second hand tobacco smoke exposure: Yes Alcohol intake: never Substance use: never Substance use type: does not use Do You Feel Safe in your Home?: Yes Lack of Transportation: No Lack of Food: Never True Current Housing: I Have Housing Concerned About Future Housing: No Difficulty Paying Gas/Electric Bills: No Difficulty Paying for Meds: No Currently Unemployed: No Education: High School Diploma/GED Difficulty w/ Childcare or Family Care: No Living arrangements: with roommate(s) Additional living arrangements comments: The patient lives in [place] with a roommate. He has no children. Occupation/Education: other Additional occupation/education comments: Disabled. Spiritual care concerns: No Meds Home Medications and Allergies Home Medications Medication Instructions Recorded Confirmed Type amlodipine 10 mg tablet 10 mg PO DAILY 01/24/19 12/25/23 History bupropion HCl 150 mg tablet,12 hr 150 mg PO BID 01/24/19 12/25/23 History sustained-release (Wellbutrin SR) doxazosin 2 mg tablet (Cardura) 2 mg PO HS 01/24/19 12/25/23 History dulaglutide 1.5 mg/0.5 mL 1.5 mg subcut WEEKLY 01/24/19 12/25/23 [facility] metformin 1,000 mg tablet 1,000 mg PO BID 01/24/19 12/25/23 History rivaroxaban 2.5 mg tablet (Xarelto) 2.5 mg PO BID 01/24/19 12/25/23 History omeprazole 40 mg capsule,delayed 40 mg PO DAILY 04/13/19 12/25/23 History release atorvastatin 40 mg tablet 80 mg PO HS 05/16/19 12/25/23 History albuterol sulfate 90 mcg/actuation 2 puff inhalation Q4-6H PRN 01/09/20 12/25/23 History aerosol inhaler (Ventolin HFA) Shortness Of Breath isosorbide mononitrate 60 mg 120 mg PO DAILY 01/09/20 12/25/23 History tablet,extended release 24 hr loratadine 10 mg tablet (Claritin) 10 mg PO DAILY 03/15/20 12/25/23 History alprazolam 0.25 mg tablet 0.25 mg PO HS 08/21/21 12/25/23 History aspirin 81 mg chewable tablet 81 mg PO DAILY 09/29/21 12/25/23 History (Children's Aspirin) ondansetron 4 mg disintegrating 4 mg PO Q8H PRN nausea and 02/13/22 12/25/23 Rx tablet vomiting #10 tabs tamsulosin 0.4 mg capsule 0.4 mg PO DAILY 12/25/23 12/25/23 History Allergies Allergy/AdvReac Type Severity Reaction Status Date / Time No Known Allergies Allergy Unknown Verified 12/24/23 20:52 Vital Signs Vital Signs - 24 hr 12/24/23 20:45 12/24/23 22:02 12/24/23 23:00 Temperature 97.8 F 98 F Pulse Rate 97 88 86 Respiratory Rate 19 16 Blood Pressure 124/70 136/74 Pulse Oximetry 97 100 Oxygen Delivery Room Air 12/25/23 00:25 12/25/23 02:33 12/25/23 03:04 Temperature 96.3 F L Pulse Rate 82 Respiratory Rate 16 Blood Pressure 167/87 H Pulse Oximetry 97 97 Oxygen Delivery CPAP CPAP 12/25/23 04:00 Temperature Pulse Rate 73 Respiratory Rate Blood Pressure Pulse Oximetry Oxygen Delivery Exam Const: General: comfortable and no acute distress Other: No acute distress, obese HENMT: Mouth: Yes moist mucous membranes Eyes: Pupils: Equal, round and reactive pupils present EOM: EOMs intact bilaterally Neck: Neck: supple Resp: Effort & Inspection: normal respiratory effort Auscultation: clear to auscultation bilaterally Cardio: Rate: regular rate Rhythm: regular rhythm Heart sounds: no gallops, no murmurs and no rubs GI: GI Palp: Yes Soft to palpation and No Tenderness to palpation present (GI) Auscultation: normal bowel sounds Other: Protuberant abdomen Neuro: General: deep tendon reflexes 2+ bilaterally Speech: normal speech Other: Cranial nerves 2-12 grossly intact. No ataxia. No drift. Sensation to brought in light touch decreased on left face arm and leg. Left upper extremity 4.5/5 strength. Left lower extremity 5/5 strength. No facial droop. Extrem: General: no edema H&P: Results Labs Labs: Short CBC 12/24/23 Range/Units 21:25 WBC 8.4 (4.5-10.0) K/mm3 Hgb 14.8 (14.0-18.0) g/dL Hct 42.4 (42.0-52.0) % Plt Count 153 (150-375) k/mm3 BMP 12/24/23 12/24/23 21:25 21:34 Sodium 137 Potassium 4.4 Chloride 101 Carbon Dioxide 25 BUN 21 H Creatinine 1.30 1.40 Glucose 99 Calcium 9.6 Cardiac Enzymes 12/24/23 Range/Units 21:25 Troponin I < 0.012 (0.000-0.034) ng/mL Liver Function 12/24/23 Range/Units 21:25 Total Bilirubin 1.0 (0.2-1.3) mg/dL AST 50 (17-59) U/L ALT 47 (6-50) U/L Alkaline Phosphatase 63 (38-126) U/L Albumin 4.5 (3.5-5.1) g/dL Urine 12/24/23 Range/Units 22:00 Urine Color Dark yellow (Yellow) Urine Appearance Cloudy H (Clear) Urine pH 5.5 (5.0-9.0) Ur Specific [place] 1.037 H (1.001-1.035) Urine Protein 3+ H (Negative) mg/dL Urine Glucose (UA) Negative (Negative) mg/dL Assessment and Plan Assessment and plan (1) Weakness: Code(s): R53.1 - Weakness Status: Acute (2) Dizziness: Code(s): R42 - Dizziness and giddiness Status: Inactive (3) Numbness: Code(s): R20.0 - Anesthesia of skin Status: Acute Plan 63-year-old male with a past medical history morbid obesity, CAD status post 2 stents on aspirin and apixaban, intolerant to Plavix due to stomach upset, COPD, active tobacco abuse, gunnar on cpap, [id number] diabetes mellitus, GERD, 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 Patient presents with complaint of dizziness. Around 3:00 p.m. on 12/24/2023 the patient was on a ladder fixing a ceiling fan when he noticed he was dizzy and he had worsened left-sided numbness. He denies fainting, increased weakness, change in vision. He has had balance difficulties for many years and that is unchanged. He feels at the time it was difficult for him to speak. [facility] ER evaluation demonstrated hemodynamically stable male. Urine drug screen positive for benzodiazepines and he does take these chronically at home. Chest x-ray without acute cardiopulmonary disease. Head and neck CTA with 0% stenosis of the right and left carotid bulbs relative to normal distal artery lumen diameter, unremarkable cerebral CT angiogram, small old infarct in right frontoparietal aguayo radiata and at the body of the left caudate nucleus. No acute findings. Dr. Last contacted from the ER and suggest MRI of the brain. Hospice service contacted for admission for observation. At the time of this leader writer's evaluation later in the ER course the patient reports he has improved sensation but is numbness is still worse than his usual. He otherwise has no complaints. ----- History of CVA with residual mild left upper extremity weakness and left-sided paresthesias. Patient presents dizziness, denies vertigo. Reports exacerbation of left-sided numbness. It is slightly improved from presentation but not at his baseline. Neurology consultation pending. MRA brain pending. Continue LOCKSTITCH HEMMER aspirin and atorvastatin. Hold LOCKSTITCH HEMMER antihypertensives and restart gradually especially if acute stroke not identified on MRA. CAD status post 2 stents. Patient had NSTEMI in January 2023 and his latest catheterization at that time and [facility] demonstrated 1.? ? Right coronary dominant circulation with overall good revascularization with previously deployed stents in the LAD and circumflex remaining patent. 2.? ? Acute coronary syndrome / non ST elevation DC appears to be due to occlusion of a very tiny 1st OM 1 branch that arises at a tiny ramus intermedius which was patent in 2021 and has become occluded.? This is a tiny vessel no more than 1 mm in diameter and of course not suitable for PCI 3. ? vigorous left ventricular systolic function At that time the patient was continued on Plavix Eliquis statin and beta-krystal. Since then he has been switched to aspirin and Xarelto due to his intolerance to Plavix due to stomach upset. Continue LOCKSTITCH HEMMER PPI for GERD. Continue aspirin and statin. Will hold off on resuming Xarelto until MRA is complete. Accu-Cheks a.c. HS with low-dose insulin sliding scale. Continue CPAP nightly. Patient counseled extensively on weight loss. He has lost 40 lb since 2019 and like to continue to pursue weight loss turning on his own. Patient counseled on tobacco abuse and he is willing to quit but does not want assistance at this time. His housemate smokes. ----- Saline lock IV, heart healthy diet, carbohydrate consistent diet. Resume LOCKSTITCH HEMMER PPI SCDs. PT and OT for dizziness and weakness Neurology consultation for dizziness Patient lives at home with a female house mate. They both smoke cigarettes. He denies alcohol use, denies recreational drug use, energy drinks. Patient wishes to be full code. Hospitalist [facility] Advance Care Plan I have confirmed that the patient's Advanced Care Plan is present, code status is documented, or surrogate decision maker is listed in patient medical record.: Yes Medication Reconciliation I have utilized all available resources to obtain, update and review the patients current medications (includes all prescriptions, OTC, herbals, cannabis, and nutritional supplements).: Yes
[2023-12-25 07:24] LABS: Basophils Percent Auto 0.3 % (0.2-1.2); Eosinophils Absolute Auto 0.2 K/mm3 (0-0.3); Eosinophils Percent Auto 3.4 % (0-4.4); Hematocrit 38.8 % (42.0-52.0); Hemoglobin 12.9 g/dL (14.0-18.0); Immature Granulocyte Absolute 0.02 K/mm3 (0.00-0.031); Immature Granulocyte Percent A 0.3 % (0-0.5); Immature Platelet Fraction Pct 6.8 % (0.9-11.2); Lymphocytes Absolute Auto 1.09 K/mm3 (0.9-3.2); Mean Corpuscular HGB Conc 33.2 g/dl (32-36); Mean Corpuscular Hemoglobin 30.6 pg (26-34); Mean Corpuscular Volume 92.2 fl (80-100); Mean Platelet Volume 10.9 fl (7.4-10.4); Monocytes Absolute Auto 0.7 K/mm3 (0.1-0.6); Monocytes Percent Auto 10.4 % (2.6-8.5); Neutrophils Absolute Auto 4.4 K/mm3 (1.3-6.7); Neutrophils Percent Auto 68.6 % (45.5-73.1); Platelet Count Result 129 k/mm3 (150-375); Red Blood Count 4.21 M/mm3 (4.6-6.20); Red Cell Distribution Width 13.2 % (11.5-14.5); White Blood Count 6.4 K/mm3 (4.5-10.0)
[2023-12-25 07:35] LABS: Anion Gap 10 mmol/L (4-12); Blood Urea Nitrogen 18 mg/dL (9-20); Calcium 8.9 mg/dL (8.4-10.2); Carbon Dioxide 25 mmol/L (22-30); Chloride 100 mmol/L (98-107); Estimated CRCL calculation 81 ml/min; Estimated Glomerular Filt Rate > 60; Glucose 148 mg/dL (65-110); Magnesium 1.7 mg/dL (1.6-2.3); Sodium 135 mmol/L (137-145)
[2023-12-25] MEDS: buPROPion HCL SR (12 HR) 150 MG TAB PO (08:28)
[2023-12-25] MEDS: ASPIRIN 81 MG CHEWABLE TABLET PO (08:28)
[2023-12-25] MEDS: PANTOPRAZOLE 40 MG TABLET PO (08:28)
[2023-12-25] MEDS: LORATADINE 10 MG TABLET PO (08:28)
[2023-12-25] MEDS: TAMSULOSIN HCL 0.4 MG CAPSULE PO (08:28)
[2023-12-25 12:01] LABS: Glucose Point of Care 153 mg/dl (65-105)
[2023-12-25 16:31] LABS: Glucose Point of Care 127 mg/dl (65-105)
--- NOTE | 2023-12-25 18:01 | PM.DS ---
DS: Admitting Diagnosis Discharge Date 12/25/23 Admitting Diagnosis Left arm discomfort DS: Discharge Diagnosis Discharge Diagnosis (1) Weakness: Code(s): R53.1 - Weakness Status: Acute Assessment and Plan: Patient reports some slight left arm numbness but states feels like baseline from previous CVA. (2) Dizziness: Code(s): R42 - Dizziness and giddiness Status: Inactive Assessment and Plan: Resolved. Patient denies any symptoms todayy. (3) Numbness: Code(s): R20.0 - Anesthesia of skin Status: Acute Assessment and Plan: Reports feels baseline currently. (4) Coronary artery disease: Qualifiers: Coronary Disease-Associated Artery/Lesion type: [place] artery [place] vs. transplanted heart: [place] heart Associated angina: with other forms of angina Qualified Code(s): I25.118 - Atherosclerotic heart disease of [place] coronary artery with other forms of angina pectoris Code(s): I25.10 - Atherosclerotic heart disease of [place] coronary artery without angina pectoris Status: Acute Assessment and Plan: - Continue aspirin, statin, cardura, Imdur. (5) History of CVA (cerebrovascular accident): Code(s): Z86.73 - Personal history of transient ischemic attack (TIA), and cerebral infarction without residual deficits Status: Acute Assessment and Plan: Continue Xarelto, aspirin and statin. (6) Type 2 diabetes mellitus: Qualifiers: Diabetes mellitus intermission coordinator insulin use: with intermission coordinator use Diabetes mellitus complication status: with circulatory complication Code(s): E11.9 - Type 2 diabetes mellitus without complications Status: Acute Assessment and Plan: - Continue Metformin. (7) TIA (transient ischemic attack): Code(s): G45.9 - Transient cerebral ischemic attack, unspecified Status: Acute Assessment and Plan: Continue Xarelto, aspirin and statin. (8) Obstructive sleep apnea on CPAP: Code(s): G47.33 - Obstructive sleep apnea (adult) (pediatric); Z99.89 - Dependence on other enabling machines and devices Status: Acute Assessment and Plan: - Continue home CPAP. Plan Patient scheduled for discharge today. DS: Summary Hospital Course Reason for hospitalization: Left Arm Weakness and Numbness. Hospital Course: Patient presented to the hospital with reports of left arm weakness and numbness. [facility] ER evaluation demonstrated hemodynamically stable male. Urine drug screen positive for benzodiazepines and he does take these chronically at home. Chest x-ray without acute cardiopulmonary disease. Head and neck CTA with 0% stenosis of the right and left carotid bulbs relative to normal distal artery lumen diameter, unremarkable cerebral CT angiogram, small old infarct in right frontoparietal aguayo radiata and at the body of the left caudate nucleus. No acute findings. Dr. Last contacted from the ER and suggest MRI of the brain and the patient had Brain MRA that's also normal. He reports feeling back to baseline and wants to be discharged and will f/u with neurologist outpatient. No acute distress noted or reported prior to discharge and patient is medically stable for discharge. Time spent discussing smoking cessation with patient: more than 10 minutes Status at Discharge Functional status at discharge: independent ambulation Overall status at discharge: patient is back to baseline Time Spent with Patient Time attestation: Total time spent providing and/or coordinating discharge services: Time spent: Greater than 30 minutes Exam Const: General: comfortable and no acute distress Other: No acute distress, obese HENMT: Mouth: Yes moist mucous membranes Eyes: Pupils: Equal, round and reactive pupils present EOM: EOMs intact bilaterally Neck: Neck: supple Resp: Effort & Inspection: normal respiratory effort Auscultation: clear to auscultation bilaterally Cardio: Rate: regular rate Rhythm: regular rhythm Heart sounds: no gallops, no murmurs and no rubs GI: Auscultation: normal bowel sounds Other: Protuberant abdomen Skin: General skin exam: normal color and no rashes or lesions noted Neuro: General: deep tendon reflexes 2+ bilaterally Cranial nerves: Yes Equal, round and reactive pupils present Speech: normal speech Other: Cranial nerves 2-12 grossly intact. No ataxia. No drift. Sensation to brought in light touch decreased on left face arm and leg. Left upper extremity 4.5/5 strength. Left lower extremity 5/5 strength. No facial droop. Extrem: General: no edema Psych: Mental Status: mental status grossly normal Affect: normal affect DS: Data Data Completed and Pending Labs on day of discharge: Labs from last 24 hours 12/25/23 12/25/23 12/25/23 16:28 11:37 07:13 WBC 6.4 RBC 4.21 L Hgb 12.9 L Hct 38.8 L MCV 92.2 MCH 30.6 MCHC 33.2 RDW 13.2 Plt Count 129 L MPV 10.9 H Immature Gran % (Auto) 0.3 Neut % (Auto) 68.6 Lymph % (Auto) 17.0 L Josephine % (Auto) 10.4 H Eos % (Auto) 3.4 Baso % (Auto) 0.3 Lymph # (Auto) 1.09 Josephine # (Auto) 0.7 H Eos # (Auto) 0.2 Baso # (Auto) 0.0 Abs Immat Gran (auto) 0.02 Absolute Neuts (auto) 4.4 Absolute Nucleated RBC 0.000 Nucleated RBC % 0.0 % Immature Plt Fraction 6.8 PT INR Sodium 135 L Potassium 4.0 Chloride 100 Carbon Dioxide 25 Anion Gap 10 BUN 18 Creatinine 1.20 Estim Creat Clear Calc 81 Estimated GFR > 60 Glucose 148 H POC Capillary Glucose 127 H 153 H Calcium 8.9 Magnesium 1.7 Total Bilirubin AST ALT Alkaline Phosphatase Troponin I Total Protein Albumin Urine Color Urine Appearance Urine pH Ur Specific [place] Urine Protein Urine Glucose (UA) Urine Ketones Ur Blood (Man) Urine Nitrate Urine Bilirubin Urine Urobilinogen Add Ur Microanalysis Leukocyte Esterase Rfl Urine RBC Urine WBC Ur Squamous Epith Cells Urine Bacteria Urine Casts Hyaline Casts Urine Opiates Screen Urine Methadone Screen Ur Barbiturates Screen Ur Phencyclidine Scrn Ur Amphetamine Screen U Benzodiazepines Scrn Urine Cocaine Screen U Cannabinoids Screen Ethyl Alcohol Influenza A (RT-PCR) Influenza B (RT-PCR) SARS-CoV-2 RNA (RT-PCR) 12/25/23 12/24/23 12/24/23 00:34 22:00 21:49 WBC RBC Hgb Hct MCV MCH MCHC RDW Plt Count MPV Immature Gran % (Auto) Neut % (Auto) Lymph % (Auto) Josephine % (Auto) Eos % (Auto) Baso % (Auto) Lymph # (Auto) Josephine # (Auto) Eos # (Auto) Baso # (Auto) Abs Immat Gran (auto) Absolute Neuts (auto) Absolute Nucleated RBC Nucleated RBC % % Immature Plt Fraction PT INR Sodium Potassium Chloride Carbon Dioxide Anion Gap BUN Creatinine Estim Creat Clear Calc Estimated GFR Glucose POC Capillary Glucose 171 H Calcium Magnesium Total Bilirubin AST ALT Alkaline Phosphatase Troponin I Total Protein Albumin Urine Color Dark yellow Urine Appearance Cloudy H Urine pH 5.5 Ur Specific [place] 1.037 H Urine Protein 3+ H Urine Glucose (UA) Negative Urine Ketones Trace H Ur Blood (Man) Negative Urine Nitrate Negative Urine Bilirubin 1+ H Urine Urobilinogen 1.0 Add Ur Microanalysis Reviewed Leukocyte Esterase Rfl Negative Urine RBC 0-2 Urine WBC 0-5 Ur Squamous Epith Cells Occasional Urine Bacteria None seen Urine Casts >20 Hyaline Casts Present Urine Opiates Screen Negative Urine Methadone Screen Negative Ur Barbiturates Screen Negative Ur Phencyclidine Scrn Negative Ur Amphetamine Screen Negative U Benzodiazepines Scrn Positive A Urine Cocaine Screen Negative U Cannabinoids Screen Negative Ethyl Alcohol Influenza A (RT-PCR) Negative Influenza B (RT-PCR) Negative SARS-CoV-2 RNA (RT-PCR) Negative 12/24/23 12/24/23 21:34 21:25 WBC 8.4 RBC 4.71 Hgb 14.8 Hct 42.4 MCV 90.0 MCH 31.4 MCHC 34.9 RDW 13.1 Plt Count 153 MPV 11.7 H Immature Gran % (Auto) 0.4 Neut % (Auto) 70.5 Lymph % (Auto) 17.6 L Josephine % (Auto) 9.3 H Eos % (Auto) 2.0 Baso % (Auto) 0.2 Lymph # (Auto) 1.48 Josephine # (Auto) 0.8 H Eos # (Auto) 0.2 Baso # (Auto) 0.0 Abs Immat Gran (auto) 0.03 Absolute Neuts (auto) 5.9 Absolute Nucleated RBC 0.000 Nucleated RBC % 0.0 % Immature Plt Fraction PT 14.9 H INR 1.1 Sodium 137 Potassium 4.4 Chloride 101 Carbon Dioxide 25 Anion Gap 11 BUN 21 H Creatinine 1.40 1.30 Estim Creat Clear Calc 68 73 Estimated GFR 51 L 56 L Glucose 99 POC Capillary Glucose Calcium 9.6 Magnesium Total Bilirubin 1.0 AST 50 ALT 47 Alkaline Phosphatase 63 Troponin I < 0.012 Total Protein 8.0 Albumin 4.5 Urine Color Urine Appearance Urine pH Ur Specific [place] Urine Protein Urine Glucose (UA) Urine Ketones Ur Blood (Man) Urine Nitrate Urine Bilirubin Urine Urobilinogen Add Ur Microanalysis Leukocyte Esterase Rfl Urine RBC Urine WBC Ur Squamous Epith Cells Urine Bacteria Urine Casts Hyaline Casts Urine Opiates Screen Urine Methadone Screen Ur Barbiturates Screen Ur Phencyclidine Scrn Ur Amphetamine Screen U Benzodiazepines Scrn Urine Cocaine Screen U Cannabinoids Screen Ethyl Alcohol < 10 Influenza A (RT-PCR) Influenza B (RT-PCR) SARS-CoV-2 RNA (RT-PCR) Discharge Plan Discharge Attending physician on discharge: Maynor Masters Consulting providers: Mady Last Discharging Clinician: Sadiq Carty Patient Disposition: Home, Self-Care Activity: as tolerated Diet: heart healthy and diabetic Patient Instructions: Antibiotic Form, How to Stop Smoking (DC) Stand Alone Forms: General Discharge Information Follow-up/Referrals: Irving,Sandi DOCUMENT PREPARATION SPECIALIST [Primary Care Provider] - 1 Week Discharge Medications: Continued omeprazole 40 mg capsule,delayed release(DR/EC) 40 mg PO DAILY isosorbide mononitrate 60 mg tablet extended release 24 hr 120 mg PO DAILY albuterol sulfate [Ventolin HFA] 90 mcg/actuation HFA aerosol inhaler 2 puff INHALATION Q4-6H PRN (Reason: Shortness Of Breath) loratadine [Claritin] 10 mg Tablet 10 mg PO DAILY aspirin [Children's Aspirin] 81 mg tablet,chewable 81 mg PO DAILY bupropion HCl [Wellbutrin SR] 150 mg tablet sustained-release 12 hr 150 mg PO BID amlodipine 10 mg tablet 10 mg PO DAILY metformin 1,000 mg tablet 1,000 mg PO BID doxazosin [Cardura] 2 mg tablet 2 mg PO HS Trulicity 1.5 mg/0.5 mL pen injector 1.5 mg SUBCUT WEEKLY Rx Instructions: TAKES ON fridays Xarelto 2.5 mg tablet 2.5 mg PO BID Hold Instructions: Resume on 04/13/21. atorvastatin 40 mg tablet 80 mg PO HS alprazolam 0.25 mg tablet 0.25 mg PO HS Rx Instructions: at bedtime tamsulosin 0.4 mg capsule 0.4 mg PO DAILY Discontinued ondansetron 4 mg tablet,disintegrating 4 mg PO Q8H PRN (Reason: nausea and vomiting) Qty: 10 0RF Date of admission: 12/24/23 23:32 Primary Care Provider: AngelinaSandi Admitting Provider: Cristiana Warner Attending physician on admission: Cristiana Warner Condition: Improved Quality VTE Prophylaxis VTE prophylaxis: pharmacologic ordered Pharmacological Therapy Was IV thrombolytic therapy given?: No Contraindications to IV thrombolytic therapy: medical contraindication Patient on Xarelto and Statin. Hospitalist MIPS Heart Failure (Exclusion) Patient has history of Heart Transplant or Left Ventricular Assistive Device?: No IF YES, STOP HERE Heart Failure (Qualifier) Patient has current or prior documentation of LVEF less than or equal to 40%, or mod/servere depressed LVSF?: No IF NO, STOP HERE If Medications not prescribed/taking Reason patient not prescribed/taking TANESHA or ARB: Patient reasons: pt declined or other pt reason Reason patient not prescribed/taking bisoprolol, carvedilol, or sustained realease metoprolol succinate: Patient reasons: pt declined or other pt reason
== END 2023-12-25 18:42 | disposition home or self-care (01) ==
LOC: ANHED 21:12 → ANH3MEDSUR 12-25 00:13
PROVIDERS: Admitting Provider General Practice; Emergency Provider Preventive Medicine Aerospace Medicine; PCP Registered Nurse; Visit Provider Nurse Practitioner Adult Health
DX: G45.9 Transient cerebral ischemic attack, unspecified (principal); I69.354 Hemiplegia and hemiparesis following cerebral infarction affecting left non-dominant side; J44.9 Chronic obstructive pulmonary disease, unspecified; I11.0 Hypertensive heart disease with heart failure; I50.9 Heart failure, unspecified; E78.5 Hyperlipidemia, unspecified; K21.9 Gastro-esophageal reflux disease without esophagitis; I25.2 Old myocardial infarction; I25.10 Atherosclerotic heart disease of native coronary artery without angina pectoris; E11.42 Type 2 diabetes mellitus with diabetic polyneuropathy; F32.A Depression, unspecified; G47.33 Obstructive sleep apnea (adult) (pediatric); E11.51 Type 2 diabetes mellitus with diabetic peripheral angiopathy without gangrene; Z20.822 Contact with and (suspected) exposure to COVID-19; Z86.718 Personal history of other venous thrombosis and embolism; Z79.85 Long-term (current) use of injectable non-insulin antidiabetic drugs; Z79.84 Long term (current) use of oral hypoglycemic drugs; Z79.01 Long term (current) use of anticoagulants; Z79.51 Long term (current) use of inhaled steroids; Z79.82 Long term (current) use of aspirin; Z95.5 Presence of coronary angioplasty implant and graft; F17.210 Nicotine dependence, cigarettes, uncomplicated; E66.01 Morbid (severe) obesity due to excess calories; Z68.41 Body mass index [BMI] 40.0-44.9, adult; Z79.899 Other long term (current) drug therapy
CPT/HCPCS: 36415; 70496; 70498; 70544; 71045; 80048; 80053; 80307; 81001; 82077; 82948; 83735; 84484; 85025; 85055; 85610; 87636; 93005; 96360; 97161; 97165; 99285; A9270; G0378; J7030; Q9967

== ENCOUNTER 2024-01-21 08:40 | Outpatient (RCR) | payer MEDICARE, MEDICAID, SELFPAY ==
--- NOTE | 2024-01-21 10:56 | OPREHPOC ---
Outpatient Therapy Plan of Care This is a Multidisciplinary Plan of Care that may contain components documented by all disciplines (PT, OT, and ST.) PT Problem 1 PT Problem #1 Knowledge Deficit PT Goal 1 Goal / Goal Update Levasy with HEP Target Visit 4 PT Goal 2 Goal / Goal Update Report consistent pain reduction to no greater than 4/10 for 2 consecutive weeks Target Visit 8 PT Problem 2 PT Problem #2 Impaired Flexibility PT Goal 1 Goal / Goal Update Demonstrate tex Hamstring 90/90 restriction <25 degrees to reduce posterior chain pull Target Visit 8 PT Goal 2 Goal / Goal Update Demonstrate minimal restriction tex to piriformis to reduce capsular pelvic pull Target Visit 8 PT Problem 3 PT Problem #3 Impaired Strength PT Goal 1 Goal / Goal Update Improve tex hip abduction strength to 4+/5 to improve pelvic stability with gait and ADL performance Target Visit 8
--- NOTE | 2024-01-21 10:56 | PTOPEVAL1 ---
Assessment and note entered by Pierce Kaiser, PT Evaluation Information Assessment Status Evaluation ICD-10 Condition Codes (PT) Pain in right hip M25.551,Pain in left hip M25.552 Onset December 2023 Subjective Information Reports that he is having pain in both lateral hips that is worse when he initiates movement. He has noted increased pain over the last month and has history of sciatica on right side. Denies pain in groin or medial knee. Having a lot of trouble with walking and initiating movement. Patient is a side sleeper and is very stiff when getting up in the AM. Reported Pain Level Pain Score 7: Self Report Assessment PT Clinical Summary Patient presents with tex flexion and extension based spinal pain at this time with radicular symptoms into lateral hips. Patient has capsular hip mobility restriction, but no indication of loss of structural integrity. Patient will benefit form skilled therapy to improve tex hip strength and mobility with education in body mechanics and posture to reduce back pain and improve functional mobility. Plan of Care Interventions Electrical Stimulation,Gait Training,Hot Pack/Cold Pack,Manual Therapy,Neuro Re-education, Therapeutic Activities,Therapeutic Exercise PT Services Indicated Yes Treatment Frequency and 2x/week for 8 visits Duration These treatments will address the objective and functional deficits as defined above. The patient will be advanced safely and appropriately in order for the patient to progress towards his/her prior level of function. Additional exercises will be introduced and as well as a comprehensive home exercise program upon discharge, if needed, ?to ensure carryover of functional gains achieved in the clinic. This treatment plan has been reviewed and agreement upon by the patient.
== END 2024-04-20 23:59 | disposition home or self-care (01) ==
LOC: ANHPT 08:40
PROVIDERS: PCP Registered Nurse; Visit Provider Registered Nurse
DX: M25.551 Pain in right hip (principal); M25.552 Pain in left hip; M25.569 Pain in unspecified knee
CPT/HCPCS: 97110; 97161

== ENCOUNTER 2024-01-22 11:12 | Outpatient (CLI) | payer MEDICARE, MEDICAID, SELFPAY ==
--- NOTE | ~2024-01-22 | US_ITS ---
EXAMINATION: US soft tissue UE LT DATE: 01/22/2024 11:27 INDICATION: Mass of left upper extremity. TECHNIQUE: Multiple grayscale and Doppler ultrasound images of the left upper extremity were obtained . COMPARISON: None FINDINGS: In the left upper arm, there is a 2.8 x 1.3 x 4.4 cm hyperechoic subcutaneous mass with stephane tral 1.0 x 0.4 cm hypoechoic area. IMPRESSION: 1. 4.4 cm subcutaneous mass in the left upper arm. The differential diagnosis includes hematoma, cell ulitis with small abscess, and neoplasm. Reviewed, dictated and finalized at location A. CLEARANCE FOREMAN IMPRESSION: 1. 4.4 cm subcutaneous mass in the left upper arm. The differential diagnosis i ncludes hematoma, cellulitis with small abscess, and neoplasm.
== END 2024-01-22 11:13 | disposition home or self-care (01) ==
LOC: MICIMG 11:13
PROVIDERS: PCP Registered Nurse; Visit Provider Registered Nurse
DX: R22.32 Localized swelling, mass and lump, left upper limb (principal)
CPT/HCPCS: 76882

== ENCOUNTER 2024-01-28 23:52 | Emergency (ER) | payer MEDICARE, MEDICAID, SELFPAY ==
--- NOTE | ~2024-01-28 | XR_ITS ---
XR chest 2V DATE: 01/29/2024 01:00 INDICATION: Dizziness TECHNIQUE: AP and lateral views COMPARISON: 12/24/2023 portable AP chest at 2126 hours 02/24/2023 CTA chest FINDINGS: Heart size is within normal range considering AP projection. There is a cardiac Loop record er device overlying the left chest. No pulmonary infiltrate or consolidation is detected. No pleural effusion or pulmonary vascular conge stion or pneumothorax. Degenerative spurring of the thoracic spine. IMPRESSION: No active cardiopulmonary disease Reviewed, dictated and finalized at location A. BRAKEMAN
--- NOTE | ~2024-01-28 | CT_ITS ---
EXAMINATION: CT brain wo con DATE: 01/29/2024 01:32 INDICATION: Dizziness TECHNIQUE: Computed tomography (CT) of the head was performed without intravenous contrast. The mA wa s adjusted according to patient size. Iterative reconstruction technique was employed. Exam dose: 75 6.67 mGy-cm total exam DLP. COMPARISON: 01/24/2023 CT brain 12/25/2023 MRA brain FINDINGS: There is nonspecific diminished attenuation the cerebral white matter, likely due to chroni c small vessel ischemic change. There are prominent bilateral carotid siphon internal carotid artery calcifications. There is a focal chronic infarct in the right the right middle periventricular white matter, stable s tali 01/24/2023. No intracranial mass lesion or hemorrhage or other cerebrovascular accident is evident. No midline sh ift or mass effect. There is mild to moderate central and cortical and cerebellar volume loss. No subdural or epidural hematoma. The paranasal sinuses and mastoid air cells are well-developed and aerated. No fracture or bone destruction of the cranial vault. IMPRESSION: Cerebral atherosclerosis and chronic small vessel ischemic changes of the cerebral white matter Focal chronic infarct in the right parietal periventricular white matter, stable since 01/24/2023 No acute intracranial finding Reviewed, dictated and finalized at [facility]. Reviewed, dictated and finalized at location A. ER SKATE ASSEMBLER IMPRESSION: Cerebral atherosclerosis and chronic small vessel ischemic changes of the cerebral white matter Focal chronic infarct in the right parietal periventricular white matter, stabl e since 01/24/2023 No acute intracranial finding
--- NOTE | 2024-01-28 23:58 | ECG_ITS ---
Test Date: 2024-01-29 00:05:44 Measurements Intervals [place] Rate: 89 P: 42 MD: 161 QRS: 44 QRSD: 161 T: 45 QT: 417 QTc: 510 Interpretive Statements SINUS RHYTHM RIGHT BUNDLE BRANCH BLOCK BASELINE ARTIFACT- I, II, AVR, AVL, AVF, V1, V5 ABNORMAL ECG Compared to ECG 12/24/2023 22:04:07 Sinus arrhythmia no longer present Electronically Signed On 01-29-2024 09:08:29 RAIL WASHER by Mathew Landon D.O.
[2024-01-29 00:06] VITALS: BP 142/85; PULSE 89; RESP 21; TEMP 36.6; O2SAT 99
[2024-01-29 00:21] LABS: Basophils Percent Auto 0.4 % (0.2-1.2); Eosinophils Absolute Auto 0.1 K/mm3 (0-0.3); Eosinophils Percent Auto 1.5 % (0-4.4); Hematocrit 43.4 % (42.0-52.0); Hemoglobin 14.8 g/dL (14.0-18.0); Immature Granulocyte Absolute 0.09 K/mm3 (0.00-0.031); Immature Granulocyte Percent A 1.1 % (0-0.5); Lymphocytes Absolute Auto 1.59 K/mm3 (0.9-3.2); Lymphocytes Percent Auto 19.9 % (18.3-44.2); Mean Corpuscular HGB Conc 34.1 g/dl (32-36); Mean Corpuscular Hemoglobin 30.5 pg (26-34); Mean Corpuscular Volume 89.5 fl (80-100); Mean Platelet Volume 11.2 fl (7.4-10.4); Monocytes Absolute Auto 0.8 K/mm3 (0.1-0.6); Monocytes Percent Auto 9.6 % (2.6-8.5); Neutrophils Absolute Auto 5.4 K/mm3 (1.3-6.7); Neutrophils Percent Auto 67.5 % (45.5-73.1); Platelet Count Result 145 k/mm3 (150-375); Red Blood Count 4.85 M/mm3 (4.6-6.20); Red Cell Distribution Width 12.6 % (11.5-14.5)
--- NOTE | 2024-01-29 00:26 | ED_ITS ---
HPI - Dizziness General Chief Complaint: Dizziness Stated Complaint: dizzy, sob, nausea Time Seen by Provider: 01/29/24 00:24 Source: patient Mode of arrival: ambulatory Limitations: no limitations History of Present Illness HPI Narrative: This is a 63-year-old male with PMH of CAD, CVA, T2 dm, COPD who presents to the ED with chief complaint of dizziness last night around 10:00 p.m.. Patient reports that when he was lying down he rolled to the side and became very dizzy. Reports a spinning sensation. States that it has been episodic over the last 24 hours. It typically comes on when he is standing or walking. It was worse tonight when he tried to stand up and walk to the bathroom. He does note some r elief of symptoms when he is lying down. Endorses chronic left-sided weakness from past strokes. Denies syncope, new neuro deficit, chest pain, shortness of breath, cough, recent illness. Related Data Home Medications Medication Instructions Recorded Confirmed amlodipine 10 mg tablet 10 mg PO DAILY 01/24/19 12/25/23 bupropion HCl 150 mg tablet,12 hr 150 mg PO BID 01/24/19 12/25/23 sustained-release (Wellbutrin SR) doxazosin 2 mg tablet (Cardura) 2 mg PO HS 01/24/19 12/25/23 dulaglutide 1.5 mg/0.5 mL 1.5 mg subcut WEEKLY 01/24/19 12/25/23 subcutaneous pen injector (Trulicity) metformin 1,000 mg tablet 1,000 mg PO BID 01/24/19 12/25/23 rivaroxaban 2.5 mg tablet (Xarelto) 2.5 mg PO BID 01/24/19 12/25/23 omeprazole 40 mg capsule,delayed 40 mg PO DAILY 04/13/19 12/25/23 release atorvastatin 40 mg tablet 80 mg PO HS 05/16/19 12/25/23 albuterol sulfate 90 mcg/actuation 2 puff inhalation Q4-6H PRN 01/09/20 12/25/23 aerosol inhaler (Ventolin HFA) Shortness Of Breath isosorbide mononitrate 60 mg 120 mg PO DAILY 01/09/20 12/25/23 tablet,extended release 24 hr loratadine 10 mg tablet (Claritin) 10 mg PO DAILY 03/15/20 12/25/23 alprazolam 0.25 mg tablet 0.25 mg PO HS 08/21/21 12/25/23 aspirin 81 mg chewable tablet 81 mg PO DAILY 09/29/21 12/25/23 (Children's Aspirin) tamsulosin 0.4 mg capsule 0.4 mg PO DAILY 12/25/23 12/25/23 Allergies Allergy/AdvReac Type Severity Reaction Status Date / Time No Known Allergies Allergy Unknown Verified 01/28/24 23:53 Review of Systems Review of Systems: All systems as dictated in [facility] Past Medical History Medical History Angina at rest BMI greater than 40 Cerebrovascular accident Mild left-sided weakness. Chronic anticoagulation Chronic obstructive pulmonary disease Congestive heart failure Coronary artery disease Stent to the distal circumflex and Left anterior descending in 2014. Left anterior descending stent in 04/2015. COVID Deep venous thrombosis Depression Diabetic peripheral neuropathy Fracture of fifth toe, right, closed Gastric ulcer Gastroesophageal reflux disease Hydronephrosis Hyperlipidemia Hypertension Kidney stones Myocardial infarction NSTEMI (non-ST elevated myocardial infarction) Obstructive sleep apnea on CPAP Peripheral vascular disease Pneumonia Psoriasis Seasonal allergies Transient ischemic attack Type 2 diabetes mellitus Surgical History Surgical History History of cardiac catheterization 2 stents History of cholecystectomy History of heart artery stent X2. History of lithotripsy History of rectal polypectomy History of tonsillectomy Family History Family History Mother Diabetes mellitus Arthritis Kidney stones Coronary artery disease Father Acute myocardial infarction Heart disease Kidney stones Hypertension Coronary artery disease Sibling Coronary artery disease Heart disease Hx of CABG Social History Social History Social History: Surrogate decision maker: Rena Dodd, friend. Code status: Full code. Smoking packs per day: 0.5 Smoking cigarettes per day: 10.0 Years smoked: 44 Smoking pack-years: 22.00 Smoking status: Current every day smoker Tobacco type: cigarettes Second hand tobacco smoke exposure: Yes Alcohol intake: never Substance use: never Substance use type: does not use Do You Feel Safe in your Home?: Yes Lack of Transportation: No Lack of Food: Never True Current Housing: I Have Housing Concerned About Future Housing: No Difficulty Paying Gas/Electric Bills: No Difficulty Paying for Meds: No Currently Unemployed: No Education: High School Diploma/GED Difficulty w/ Childcare or Family Care: No Living arrangements: with roommate(s) Additional living arrangements comments: The patient lives in [place] with a roommate. He has no children. Occupation/Education: other Additional occupation/education comments: Disabled. Spiritual care concerns: No Exam Narrative: GENERAL: Well-appearing, well-nourished, and in no acute distress. HEAD: Normocephalic, atraumatic. EYES: PERRLA and EOMI. ENT: Nares clear, no rhinorrhea or epistaxis. Mucous membranes moist. Oropharynx without tonsillar hypertrophy exudate or other lesions. NECK: Supple. No adenopathy or masses. CHEST: No respiratory distress. Clear to auscultation. No wheezes rales or rhonchi HEART: Regular rate and rhythm. No murmur heard. Normal peripheral pulses. ABDOMEN: Soft, nontender, nondistended, normal active bowel sounds. MSK: Normal range of motion. No edema. SKIN: Warm, dry, no rash. NEURO: Alert and oriented x4. No focal deficits. Head impulse does cause patient to lose focus Unidirectional Horizontal nystagmus noted with leftward rotation of the head. Normal test of skew. PSYCH: Normal mood and affect. Course Vital Signs Vital signs: Vital Signs Temperature 97.8 F 01/29/24 00:06 Pulse Rate 89 01/29/24 00:06 Respiratory Rate 21 H 01/29/24 00:06 Blood Pressure 142/85 H 01/29/24 00:06 Pulse Oximetry 99 01/29/24 00:06 Temperature 97.8 F 01/29/24 00:06 Pulse Rate 89 01/29/24 00:06 Respiratory Rate 21 H 01/29/24 00:06 Blood Pressure 142/85 H 01/29/24 00:06 Pulse Oximetry 99 01/29/24 00:06 MDM - Dizziness MDM Narrative Medical decision making narrative: This is a 63-year-old male who presents to the ED for episodic vertigo over the past 24 hours. Vitals are normal. Exam shows reproducible dizziness with leftward rotation of the head. Hints exam is indicating a peripheral source. EKG shows sinus rhythm with RBBB and unchanged from previous Lab work is unremarkable including a negative troponin CT head: No acute intracranial finding. Patient was given fluids, Zofran, meclizine and Valium here with relief of symptoms. Presentation is consistent with peripheral vertigo. Patient will be discharged in stable condition. Supportive measures discussed and return precautions given. Patient is understanding and agreeable with plan for discharge with PCP follow-up. Lab Data 01/29/24 00:10 01/29/24 00:10 Labs: Lab Results 01/29/24 Range/Units 00:10 WBC 8.0 (4.5-10.0) K/mm3 RBC 4.85 (4.6-6.20) M/mm3 Hgb 14.8 (14.0-18.0) g/dL Hct 43.4 (42.0-52.0) % MCV 89.5 (80-100) fl MCH 30.5 (26-34) pg MCHC 34.1 (32-36) g/dl RDW 12.6 (11.5-14.5) % Plt Count 145 L (150-375) k/mm3 MPV 11.2 H (7.4-10.4) fl Immature Gran % (Auto) 1.1 H (0-0.5) % Neut % (Auto) 67.5 (45.5-73.1) % Lymph % (Auto) 19.9 (18.3-44.2) % [place] % (Auto) 9.6 H (2.6-8.5) % Eos % (Auto) 1.5 (0-4.4) % Baso % (Auto) 0.4 (0.2-1.2) % Lymph # (Auto) 1.59 (0.9-3.2) K/mm3 [place] # (Auto) 0.8 H (0.1-0.6) K/mm3 Eos # (Auto) 0.1 (0-0.3) K/mm3 Baso # (Auto) 0.0 (0.0-0.1) K/mm3 Abs Immat Gran (auto) 0.09 H (0.00-0.031) K/mm3 Absolute Neuts (auto) 5.4 (1.3-6.7) K/mm3 Absolute Nucleated RBC 0.000 (0.0-0.012) K/mm3 Nucleated RBC % 0.0 (0.0-0.2) % Sodium 137 (137-145) mmol/L Potassium 3.8 (3.4-5.0) mmol/L Chloride 101 (98-107) mmol/L Carbon Dioxide 27 (22-30) mmol/L Anion Gap 9 (4-12) mmol/L BUN 15 (9-20) mg/dL Creatinine 1.00 (0.7-1.3) mg/dL Estim Creat Clear Calc 92 ml/min Estimated GFR > 60 (59 - ) Glucose 138 H (65-110) mg/dL Calcium 9.4 (8.4-10.2) mg/dL Total Bilirubin 0.8 (0.2-1.3) mg/dL AST 30 (17-59) U/L ALT 43 (6-50) U/L Alkaline Phosphatase 74 (38-126) U/L Troponin I < 0.012 (0.000-0.034) ng/mL Total Protein 8.0 (6.3-8.2) g/dL Albumin 4.5 (3.5-5.1) g/dL ECG Data EKG #1: ECG completion date: 01/29/24 ECG completion time: 00:05 Prior ECG tracings: available for review Interpretation: Sinus rhythm Rate 89 RBBB QTC slightly prolonged No acute ischemic findings. Appears unchanged from previous ECG December 2019 for Discharge Plan Discharge Clinical Impression: Episodic peripheral vertigo Patient Disposition: Home, Self-Care Condition: Stable Instructions: Antibiotic Form, Dizziness (ED) Additional Instructions: Exam and imaging today are reassuring. Please take meclizine as needed for dizziness and follow-up with your PCP on this issue. If you have any new or worsening symptoms please return to the ER for further evaluation. Prescriptions: New meclizine 25 mg tablet 25 mg PO TID PRN (Reason: dizzines) Qty: 30 0RF No Action omeprazole 40 mg capsule,delayed release(DR/EC) 40 mg PO DAILY isosorbide mononitrate 60 mg tablet extended release 24 hr 120 mg PO DAILY albuterol sulfate [Ventolin HFA] 90 mcg/actuation HFA aerosol inhaler 2 puff INHALATION Q4-6H PRN (Reason: Shortness Of Breath) loratadine [Claritin] 10 mg Tablet 10 mg PO DAILY aspirin [Children's Aspirin] 81 mg tablet,chewable 81 mg PO DAILY bupropion HCl [Wellbutrin SR] 150 mg tablet sustained-release 12 hr 150 mg PO BID amlodipine 10 mg tablet 10 mg PO DAILY metformin 1,000 mg tablet 1,000 mg PO BID doxazosin [Cardura] 2 mg tablet 2 mg PO HS Trulicity 1.5 mg/0.5 mL pen injector 1.5 mg SUBCUT WEEKLY Rx Instructions: TAKES ON fridays Xarelto 2.5 mg tablet 2.5 mg PO BID Hold Instructions: Resume on 04/13/21. atorvastatin 40 mg tablet 80 mg PO HS alprazolam 0.25 mg tablet 0.25 mg PO HS Rx Instructions: at bedtime tamsulosin 0.4 mg capsule 0.4 mg PO DAILY Follow-up/Referrals: Angelina,JOVITA Junior [Primary Care Provider] - Time of Disposition: 02:30
[2024-01-29 00:28] LABS: Alanine Aminotransferase 43 U/L (6-50); Albumin Level 4.5 g/dL (3.5-5.1); Alkaline Phosphatase 74 U/L (38-126); Anion Gap 9 mmol/L (4-12); Aspartate Amino Transferase 30 U/L (17-59); Bilirubin,Total 0.8 mg/dL (0.2-1.3); Blood Urea Nitrogen 15 mg/dL (9-20); Calcium 9.4 mg/dL (8.4-10.2); Carbon Dioxide 27 mmol/L (22-30); Chloride 101 mmol/L (98-107); Estimated CRCL calculation 92 ml/min; Estimated Glomerular Filt Rate > 60; Glucose 138 mg/dL (65-110); Potassium 3.8 mmol/L (3.4-5.0); Sodium 137 mmol/L (137-145)
[2024-01-29] MEDS: ONDANSETRON INJ 4 MG/2 ML VIAL IV PUSH (00:48)
[2024-01-29] MEDS: SODIUM CHLORIDE 0.9% IV 1,000 ML 999 ML IV CONT (00:48)
[2024-01-29] MEDS: MECLIZINE HCL 25 MG TABLET PO (00:51)
[2024-01-29] MEDS: diazePAM INJ (*CRX) 10 MG/2 ML SYRINGE 5 MG IV PUSH (01:39)
[2024-01-29 01:46] LABS: Troponin I < 0.012 ng/mL (0.000-0.034)
[2024-01-29 02:00] VITALS: BP 143/83; PULSE 89; RESP 15; O2SAT 97
[2024-01-29 02:48] VITALS: BP 155/76; PULSE 89; RESP 15; O2SAT 97
== END 2024-01-29 02:59 | disposition home or self-care (01) ==
PROVIDERS: Emergency Medicine; Emergency Provider Physician Assistant; PCP Registered Nurse
DX: R42 Dizziness and giddiness (principal); I25.10 Atherosclerotic heart disease of native coronary artery without angina pectoris; I69.951 Hemiplegia and hemiparesis following unspecified cerebrovascular disease affecting right dominant side; I10 Essential (primary) hypertension; I25.2 Old myocardial infarction; E11.9 Type 2 diabetes mellitus without complications; E78.5 Hyperlipidemia, unspecified; J44.9 Chronic obstructive pulmonary disease, unspecified; G47.33 Obstructive sleep apnea (adult) (pediatric); F17.210 Nicotine dependence, cigarettes, uncomplicated; Z95.5 Presence of coronary angioplasty implant and graft; Z87.01 Personal history of pneumonia (recurrent); Z87.442 Personal history of urinary calculi; Z86.0100 Personal history of colon polyps, unspecified; Z86.16 Personal history of COVID-19; Z79.85 Long-term (current) use of injectable non-insulin antidiabetic drugs; Z79.84 Long term (current) use of oral hypoglycemic drugs; Z79.899 Other long term (current) drug therapy; Z79.01 Long term (current) use of anticoagulants; Z90.49 Acquired absence of other specified parts of digestive tract; I45.10 Unspecified right bundle-branch block
CPT/HCPCS: 36415; 70450; 71046; 80053; 84484; 85025; 93005; 96361; 96374; 96375; 99284; A9270; J2405; J3360; J7030

== ENCOUNTER 2024-02-25 09:43 | Emergency (ER) | payer MEDICARE, MEDICAID, SELFPAY ==
--- NOTE | ~2024-02-25 | XR_ITS ---
XR chest 2V Ordering provider: Kareem Hanna APRN History: 63 years Male with . cough, sob x 3 days . Comparison: January 29, 2024 FINDINGS: MEDIASTINUM: The cardiac silhouette is not enlarged. LUNGS: No effusions or pneumothorax. Prominent bronchovascular markings with minimal opacification in the left lung base suggestive of early pneumonia. Follow-up advised. OTHER: No free air under the diaphragm. Degenerative changes of the spine. IMPRESSION: Early pneumonia in the left lung base. Follow-up advised. Reviewed, dictated and finalized at location A. TEACHER
--- NOTE | 2024-02-25 10:15 | ED.URI ---
HPI - URI/Sore Throat General Chief Complaint: Upper Respiratory Infection Stated Complaint: Fever, chills, headache Time Seen by Provider: 02/25/24 09:49 Source: patient Mode of arrival: ambulatory Limitations: no limitations History of Present Illness HPI Narrative: Vini is a 63-year-old male patient presenting to the clinic today with complaints of fever, chills, cough, body aches, headache, and shortness of breath x2 days. He reports he has felt feverish but has not checked his temperature. Denies any chest pain. Denies sore throat but states that feels raw. MD elicited complaint: fever, cough, nasal congestion and other (Shortness of breath, chills, body aches) Related Data Home Medications ?Medication ?Instructions ?Recorded ?Confirmed ?Last Taken ?Type amlodipine 10 mg tablet 10 mg PO DAILY 01/24/19 02/25/24 12/24/23 History bupropion HCl 150 mg tablet,12 hr 150 mg PO BID 01/24/19 02/25/24 12/24/23 History sustained-release (Wellbutrin SR) doxazosin 2 mg tablet (Cardura) 2 mg PO HS 01/24/19 02/25/24 12/24/23 History dulaglutide 1.5 mg/0.5 mL 1.5 mg subcut WEEKLY 01/24/19 02/25/24 12/18/23 History subcutaneous pen injector (Trulicity) metformin 1,000 mg tablet 1,000 mg PO BID 01/24/19 02/25/24 12/24/23 History rivaroxaban 2.5 mg tablet (Xarelto) 2.5 mg PO BID 01/24/19 02/25/24 12/24/23 History omeprazole 40 mg capsule,delayed 40 mg PO DAILY 04/13/19 02/25/24 12/24/23 History release atorvastatin 40 mg tablet 80 mg PO HS 05/16/19 02/25/24 12/23/23 History albuterol sulfate 90 mcg/actuation 2 puff inhalation Q4-6H PRN 01/09/20 02/25/24 12/24/23 History aerosol inhaler (Ventolin HFA) Shortness Of Breath isosorbide mononitrate 60 mg 120 mg PO DAILY 01/09/20 02/25/24 12/24/23 History tablet,extended release 24 hr loratadine 10 mg tablet (Claritin) 10 mg PO DAILY 03/15/20 02/25/24 12/24/23 History alprazolam 0.25 mg tablet 0.25 mg PO HS 08/21/21 02/25/24 12/24/23 History aspirin 81 mg chewable tablet 81 mg PO DAILY 09/29/21 02/25/24 12/24/23 History (Children's Aspirin) tamsulosin 0.4 mg capsule 0.4 mg PO DAILY 12/25/23 02/25/24 12/24/23 History empagliflozin 10 mg tablet mg 02/25/24 Unknown History (Jardiance) Allergies Allergy/AdvReac Type Severity Reaction Status Date / Time No Known Allergies Allergy Unknown Verified 02/25/24 10:08 Review of Systems Review of Systems: Pertinent positives per HPI. Patient denies any fever, chills, rash, headache, visual changes, dizziness, cough, shortness of breath, chest pain, palpitations, nausea, vomiting, diarrhea, constipation, abdominal pain, or any urinary issues. [facility] Past Medical History Medical History NSTEMI (non-ST elevated myocardial infarction) Coronary artery disease Stent to the distal circumflex and Left anterior descending in 2014. Left anterior descending stent in 04/2015. COVID Transient ischemic attack Diabetic peripheral neuropathy Peripheral vascular disease Deep venous thrombosis Gastric ulcer Obstructive sleep apnea on CPAP Hyperlipidemia Hypertension Type 2 diabetes mellitus Gastroesophageal reflux disease Chronic obstructive pulmonary disease Cerebrovascular accident Mild left-sided weakness. Congestive heart failure BMI greater than 40 Chronic anticoagulation Hydronephrosis Angina at rest Psoriasis Depression Fracture of fifth toe, right, closed Kidney stones Pneumonia Myocardial infarction Seasonal allergies Surgical History Surgical History History of tonsillectomy History of cholecystectomy History of lithotripsy History of heart artery stent X2. History of rectal polypectomy History of cardiac catheterization 2 stents Family History Family History Mother Diabetes mellitus Arthritis Kidney stones Coronary artery disease Father Acute myocardial infarction Heart disease Kidney stones Hypertension Coronary artery disease Sibling Coronary artery disease Heart disease Hx of CABG Social History Social History (Reviewed 02/25/24 @ 10:33 by MUKUND Larson Social History: Surrogate decision maker: Rena Dodd, friend. Code status: Full code. Smoking packs per day: 0.5 Smoking cigarettes per day: 10.0 Years smoked: 44 Smoking pack-years: 22.00 Smoking status: Current every day smoker Tobacco type: cigarettes Second hand tobacco smoke exposure: Yes Alcohol intake: never Substance use: never Substance use type: does not use Do You Feel Safe in your Home?: Yes Lack of Transportation: No Lack of Food: Never True Current Housing: I Have Housing Concerned About Future Housing: No Difficulty Paying Gas/Electric Bills: No Difficulty Paying for Meds: No Currently Unemployed: No Education: High School Diploma/GED Difficulty w/ Childcare or Family Care: No Living arrangements: with roommate(s) Additional living arrangements comments: The patient lives in [place] with a roommate. He has no children. Occupation/Education: other Additional occupation/education comments: Disabled. Spiritual care concerns: No Comments At the time of my signature, I reviewed and agree with the nursing past medical, surgical, social, and family history. There is no relevant family history pertinent to the patient complaint. Exam Narrative: General: Well-developed, morbidly obese, in no apparent distress Head: Normocephalic, atraumatic Eyes: Pupils equally round and reactive to light bilaterally, EOM intact, sclera and conjunctive clear, no discharge, lids normal Ears: TMs intact and clear, ear canals clear, no drainage, grossly hearing normal. Nose: Nares patent, clear nasal discharge, no inflammation, no sinus tenderness. Mouth: Oral pharynx without lesions or masses, good dentition, MMM. Postnasal drip Neck: Supple, trachea midline, no enlargement of anterior or posterior cervical nodes, no thyroid masses or goiter palpable. Cardio: Regular rate and rhythm, s1 and s2 normal, no murmur appreciated. Resp: Mildly coarse lung sounds, no rales, wheezing or rubs Course Course Emergency Course: Portions of this record may have been created with voice recognition software. Level of Care: Express Care Visit Vital Signs Vital signs: Vital Signs Temperature 36.4 C L 02/25/24 10:19 Pulse Rate 79 02/25/24 10:19 Respiratory Rate 20 02/25/24 10:19 Blood Pressure 157/87 H 02/25/24 10:19 Pulse Oximetry 97 02/25/24 10:19 Temperature 36.4 C L 02/25/24 10:19 Pulse Rate 79 02/25/24 10:19 Respiratory Rate 20 02/25/24 10:19 Blood Pressure 157/87 H 02/25/24 10:19 Pulse Oximetry 97 02/25/24 10:19 Vital signs reviewed MDM - URI/Sore Throat MDM Narrative Medical decision making narrative: At the time of visit patient is resting comfortably on the exam table. Patient appears to be nontoxic. Labs: COVID and influenza testing was performed and were negative in the clinic today. Diagnostics: Chest x-ray was performed shows urine pneumonia left lung base. Plan: I suspect patient has left lower lobe pneumonia. Prescription for albuterol inhaler, Augmentin, and azithromycin was sent to the pharmacy. Supportive measures were discussed with the patient and they voiced understanding discharge instructions and agrees to treatment plan. Return precautions reviewed Differential Diagnosis Differential diagnosis: Likely upper respiratory infection, otitis media, sinusitis, viral infection, influenza and pharyngitis Lab Data Labs: Lab Results 02/25/24 Range/Units 10:34 POC Influenza A Ag Negative (Negative) POC Influenza B Ag Negative (Negative) POC SARS CoV-2 Ag Negative (Negative) Imaging Data Radiologist's impression: ITS Impressions Chest X-Ray 02/25/24 10:48 IMPRESSION: Early pneumonia in the left lung base. Follow-up advised. Discharge Plan Discharge Clinical Impression: Pneumonia Qualifiers: Pneumonia type: due to unspecified organism Laterality: left Lung location: lower lobe of lung Qualified Code(s): J18.9 - Pneumonia, unspecified organism Patient Disposition: Home, Self-Care Condition: Stable Instructions: Antibiotic Form, Pneumonia (ED) Additional Instructions: Chest x-ray shows early pneumonia in the left lung base. Take prescription medications only as prescribed-albuterol inhaler, azithromycin, and Augmentin Increase fluids and stay well hydrated Tylenol/motrin for pain/fever Flonase and OTC antihistamines as directed Vicks vapor rub to open sinuses Sinus rinses for congestion Cepacol spray, cough drops, throat lozenges, warm tea with honey/lemon, gargle salt water to soothe throat BRAT diet for diarrhea Clear liquids x 24 hours then advance as tolerated for nausea/vomiting Go to the ED if you develop a worsening in your condition- high fever not controlled by Tylenol or Motrin, dehydration, weakness, lethargy, shortness of breath, or chest pain. Follow up with your PCP in 3-5 days if symptoms persist. Patient Language: Tunisian Prescriptions: New azithromycin 250 mg tablet See Rx Instructions .ROUTE .COMPLEX Qty: 6 0RF Rx Instructions: For 250 mg dose pack: take 500 mg today (day 1), then 250 mg for 4 days (days 2-5) albuterol sulfate 90 mcg/actuation HFA aerosol inhaler 2 puff inhalation Q4-6H PRN (Reason: shortness of breath or wheezing) 30 Days Qty: 8.5 0RF amoxicillin-pot clavulanate 875-125 mg tablet 1 tablet PO Q12H 7 Days Qty: 14 0RF No Action Jardiance 10 mg tablet omeprazole 40 mg capsule,delayed release(DR/EC) 40 mg PO DAILY isosorbide mononitrate 60 mg tablet extended release 24 hr 120 mg PO DAILY albuterol sulfate [Ventolin HFA] 90 mcg/actuation HFA aerosol inhaler 2 puff INHALATION Q4-6H PRN (Reason: Shortness Of Breath) loratadine [Claritin] 10 mg Tablet 10 mg PO DAILY aspirin [Children's Aspirin] 81 mg tablet,chewable 81 mg PO DAILY meclizine 25 mg tablet 25 mg PO TID PRN (Reason: dizzines) Qty: 30 0RF bupropion HCl [Wellbutrin SR] 150 mg tablet sustained-release 12 hr 150 mg PO BID amlodipine 10 mg tablet 10 mg PO DAILY metformin 1,000 mg tablet 1,000 mg PO BID doxazosin [Cardura] 2 mg tablet 2 mg PO HS Trulicity 1.5 mg/0.5 mL pen injector 1.5 mg SUBCUT WEEKLY Rx Instructions: TAKES ON fridays Xarelto 2.5 mg tablet 2.5 mg PO BID atorvastatin 40 mg tablet 80 mg PO HS alprazolam 0.25 mg tablet 0.25 mg PO HS Rx Instructions: at bedtime tamsulosin 0.4 mg capsule 0.4 mg PO DAILY Follow-up/Referrals: UNKNOWN,DOCTOR [Primary Care Provider] - Time of Disposition: 10:57 Quality NIHSS Nursing Documentation ED NIHSS nursing documentation: reviewed/agree
[2024-02-25 10:19] VITALS: BP 157/87; PULSE 79; RESP 20; TEMP 36.4; O2SAT 97
[2024-02-25 10:37] LABS: EDCOVIDSCREEN Negative (Negative); EDINFLUASCREEN Negative (Negative); EDINFLUBSCREEN Negative (Negative)
== END 2024-02-25 11:07 | disposition home or self-care (01) ==
PROVIDERS: Emergency Provider Nurse Practitioner Family
DX: J10.1 Influenza due to other identified influenza virus with other respiratory manifestations (principal); Z20.822 Contact with and (suspected) exposure to COVID-19; I25.110 Atherosclerotic heart disease of native coronary artery with unstable angina pectoris; E11.42 Type 2 diabetes mellitus with diabetic polyneuropathy; G47.33 Obstructive sleep apnea (adult) (pediatric); I10 Essential (primary) hypertension; E78.5 Hyperlipidemia, unspecified; J44.9 Chronic obstructive pulmonary disease, unspecified; K21.9 Gastro-esophageal reflux disease without esophagitis; I69.354 Hemiplegia and hemiparesis following cerebral infarction affecting left non-dominant side; I25.2 Old myocardial infarction; Z95.5 Presence of coronary angioplasty implant and graft
CPT/HCPCS: 71046; 87426; 87804; 99213; G0463

== ENCOUNTER 2024-03-23 14:53 | Emergency (ER) | payer MEDICARE, MEDICAID, SELFPAY ==
[2024-03-23] VITALS (8 sets, daily range): BP systolic 91–127; BP diastolic 46–89; PULSE 82–96; RESP 16–20; TEMP 36.4–36.6; O2SAT 95–99
[2024-03-23 15:28] LABS: Basophils Percent Auto 0.3 % (0.2-1.2); Eosinophils Absolute Auto 0.1 K/mm3 (0-0.3); Eosinophils Percent Auto 1.6 % (0-4.4); Hemoglobin 13.8 g/dL (14.0-18.0); Immature Granulocyte Absolute 0.02 K/mm3 (0.00-0.031); Immature Granulocyte Percent A 0.3 % (0-0.5); Lymphocytes Absolute Auto 0.94 K/mm3 (0.9-3.2); Lymphocytes Percent Auto 12.3 % (18.3-44.2); Mean Corpuscular HGB Conc 34.5 g/dl (32-36); Mean Corpuscular Hemoglobin 30.8 pg (26-34); Mean Corpuscular Volume 89.3 fl (80-100); Mean Platelet Volume 11.4 fl (7.4-10.4); Monocytes Absolute Auto 0.7 K/mm3 (0.1-0.6); Monocytes Percent Auto 9.5 % (2.6-8.5); Neutrophils Absolute Auto 5.8 K/mm3 (1.3-6.7); Platelet Count Result 142 k/mm3 (150-375); Red Blood Count 4.48 M/mm3 (4.6-6.20); Red Cell Distribution Width 14.1 % (11.5-14.5); White Blood Count 7.7 K/mm3 (4.5-10.0)
[2024-03-23 15:37] LABS: INR 1.3; Prothrombin Time 16.2 Seconds (11.1-14.7)
[2024-03-23 15:38] LABS: Partial Thromboplastin Time 27.9 Seconds (22.3-36.8)
[2024-03-23 15:41] LABS: Alanine Aminotransferase 37 U/L (6-50); Albumin Level 4.2 g/dL (3.5-5.1); Alkaline Phosphatase 72 U/L (38-126); Anion Gap 15 mmol/L (4-12); Aspartate Amino Transferase 31 U/L (17-59); Bilirubin,Total 1.1 mg/dL (0.2-1.3); Blood Urea Nitrogen 23 mg/dL (9-20); Calcium 8.6 mg/dL (8.4-10.2); Carbon Dioxide 18 mmol/L (22-30); Chloride 103 mmol/L (98-107); Estimated CRCL calculation 68 ml/min; Estimated Glomerular Filt Rate 51; Glucose 181 mg/dL (65-110); Lipase 96 U/L (23-300); Potassium 4.1 mmol/L (3.4-5.0); Sodium 136 mmol/L (137-145)
[2024-03-23] MEDS: ASPIRIN 81 MG CHEWABLE TABLET 324 MG PO (15:46)
[2024-03-23 15:52] LABS: Troponin I < 0.012 ng/mL (0.000-0.034)
[2024-03-23] MEDS: SODIUM CHLORIDE 0.9% IV 1,000 ML 999 ML IV CONT (16:36)
--- NOTE | 2024-03-23 16:57 | ED_ITS ---
HPI - General Adult General Chief complaint: Chest Pain Stated complaint: Feeling like he might pass out-chest pain Time Seen by Provider: 03/23/24 15:35 History of Present Illness HPI narrative: Patient is a 63-year-old gentleman presents emergency department chief complaint of chest pain lightheadedness. Patient reports that he had chest discomfort this morning took 3 nitroglycerin the patient states that he feels lightheaded afterwards and reports that whenever he stands up he gets lightheaded. The patient reports his chest pain is still very mild but is improved from earlier this morning. The patient reports he was seen in the emergency department on Thursday and had evaluation at that time for chest pain. Related Data Home Medications ?Medication ?Instructions ?Recorded ?Confirmed ?Last Taken ?Type amlodipine 10 mg tablet 10 mg PO DAILY 01/24/19 02/25/24 12/24/23 History bupropion HCl 150 mg tablet,12 hr 150 mg PO BID 01/24/19 02/25/24 12/24/23 History sustained-release (Wellbutrin SR) doxazosin 2 mg tablet (Cardura) 2 mg PO HS 01/24/19 02/25/24 12/24/23 History dulaglutide 1.5 mg/0.5 mL 1.5 mg subcut WEEKLY 01/24/19 02/25/24 12/18/23 History subcutaneous pen injector (Trulicity) metformin 1,000 mg tablet 1,000 mg PO BID 01/24/19 02/25/24 12/24/23 History rivaroxaban 2.5 mg tablet (Xarelto) 2.5 mg PO BID 01/24/19 02/25/24 12/24/23 History omeprazole 40 mg capsule,delayed 40 mg PO DAILY 04/13/19 02/25/24 12/24/23 History release atorvastatin 40 mg tablet 80 mg PO HS 05/16/19 02/25/24 12/23/23 History albuterol sulfate 90 mcg/actuation 2 puff inhalation Q4-6H PRN 01/09/20 02/25/24 12/24/23 History aerosol inhaler (Ventolin HFA) Shortness Of Breath isosorbide mononitrate 60 mg 120 mg PO DAILY 01/09/20 02/25/24 12/24/23 History tablet,extended release 24 hr loratadine 10 mg tablet (Claritin) 10 mg PO DAILY 03/15/20 02/25/24 12/24/23 History alprazolam 0.25 mg tablet 0.25 mg PO HS 08/21/21 02/25/24 12/24/23 History aspirin 81 mg chewable tablet 81 mg PO DAILY 09/29/21 02/25/24 12/24/23 History (Children's Aspirin) tamsulosin 0.4 mg capsule 0.4 mg PO DAILY 12/25/23 02/25/24 12/24/23 History empagliflozin 10 mg tablet mg 02/25/24 02/25/24 Unknown History (Jardiance) Allergies Allergy/AdvReac Type Severity Reaction Status Date / Time No Known Allergies Allergy Unknown Verified 03/18/24 17:33 Review of Systems 2 Review of Systems: A 10 system review of systems was completed on the patient and is negative except for what is stated in the HPI. Nursing and ancillary documentation was reviewed. [facility] Past Medical History Medical History NSTEMI (non-ST elevated myocardial infarction) Coronary artery disease Stent to the distal circumflex and Left anterior descending in 2014. Left anterior descending stent in 04/2015. COVID Transient ischemic attack Diabetic peripheral neuropathy Peripheral vascular disease Deep venous thrombosis Gastric ulcer Obstructive sleep apnea on CPAP Hyperlipidemia Hypertension Type 2 diabetes mellitus Gastroesophageal reflux disease Chronic obstructive pulmonary disease Cerebrovascular accident Mild left-sided weakness. Congestive heart failure BMI greater than 40 Chronic anticoagulation Hydronephrosis Angina at rest Psoriasis Depression Fracture of fifth toe, right, closed Kidney stones Pneumonia Myocardial infarction Seasonal allergies Surgical History Surgical History History of tonsillectomy History of cholecystectomy History of lithotripsy History of heart artery stent X2. History of rectal polypectomy History of cardiac catheterization 2 stents Family History Family History Mother Diabetes mellitus Arthritis Kidney stones Coronary artery disease Father Acute myocardial infarction Heart disease Kidney stones Hypertension Coronary artery disease Sibling Coronary artery disease Heart disease Hx of CABG Social History Social History Social History: Surrogate decision maker: Rena Dodd, friend. Code status: Full code. Smoking packs per day: 0.5 Smoking cigarettes per day: 10.0 Years smoked: 44 Smoking pack-years: 22.00 Smoking status: Current every day smoker Tobacco type: cigarettes Second hand tobacco smoke exposure: Yes Alcohol intake: never Substance use: never Substance use type: does not use Do You Feel Safe in your Home?: Yes Lack of Transportation: No Lack of Food: Never True Current Housing: I Have Housing Concerned About Future Housing: No Difficulty Paying Gas/Electric Bills: No Difficulty Paying for Meds: No Currently Unemployed: No Education: High School Diploma/GED Difficulty w/ Childcare or Family Care: No Living arrangements: with roommate(s) Additional living arrangements comments: The patient lives in [place] with a roommate. He has no children. Occupation/Education: other Additional occupation/education comments: Disabled. Spiritual care concerns: No Exam 2 Narrative: GENERAL: Well-appearing, well-nourished, and in no acute distress. HEAD: Normocephalic, atraumatic. EYES: PERRLA and EOMI. ENT: Nares clear, no rhinorrhea or epistaxis. Mucous membranes moist. NECK: Supple. CHEST: Clear to auscultation. No respiratory distress. HEART: Regular rate and rhythm. No murmur heard. Normal peripheral pulses. ABDOMEN: Soft, nontender, nondistended, normal active bowel sounds. EXTREMITIES: Normal range of motion. No edema. SKIN: Warm, dry, no rash. NEURO: No focal deficits. Alert and oriented x3. PSYCH: Normal mood and affect. Course Vital Signs Vital signs: Vital Signs Temperature 36.6 C 03/23/24 15:05 Pulse Rate 95 03/23/24 15:05 Respiratory Rate 16 03/23/24 15:05 Blood Pressure 101/68 03/23/24 15:05 Pulse Oximetry 95 03/23/24 15:05 Oxygen Delivery Room Air 03/23/24 15:05 Temperature 36.4 C 03/23/24 16:37 Pulse Rate 82 03/23/24 18:58 Respiratory Rate 18 03/23/24 18:58 Blood Pressure 113/66 03/23/24 18:58 Pulse Oximetry 99 03/23/24 18:58 Oxygen Delivery Room Air 03/23/24 15:05 Medical Decision Making MDM Narrative Medical decision making narrative: Differential diagnosis includes ACS, viral illness, pneumonia EKG showed no acute ischemic changes initial troponin was negative repeat troponin was negative COVID flu and RSV are negative EKG showed no acute ischemic changes Vital Signs Vital Signs: Vital Signs Temperature 36.6 C 03/23/24 15:05 Pulse Rate 95 03/23/24 15:05 Respiratory Rate 16 03/23/24 15:05 Blood Pressure 101/68 03/23/24 15:05 Pulse Oximetry 95 03/23/24 15:05 Oxygen Delivery Room Air 03/23/24 15:05 Temperature 36.4 C 03/23/24 16:37 Pulse Rate 82 03/23/24 18:58 Respiratory Rate 18 03/23/24 18:58 Blood Pressure 113/66 03/23/24 18:58 Pulse Oximetry 99 03/23/24 18:58 Oxygen Delivery Room Air 03/23/24 15:05 Lab Data 03/23/24 15:12 03/23/24 15:12 Labs: Lab Results 03/23/24 03/23/24 03/23/24 Range/Units 15:12 16:29 18:50 WBC 7.7 (4.5-10.0) K/mm3 RBC 4.48 L (4.6-6.20) M/mm3 Hgb 13.8 L (14.0-18.0) g/dL Hct 40.0 L (42.0-52.0) % MCV 89.3 (80-100) fl MCH 30.8 (26-34) pg MCHC 34.5 (32-36) g/dl RDW 14.1 (11.5-14.5) % Plt Count 142 L (150-375) k/mm3 MPV 11.4 H (7.4-10.4) fl Immature Gran % (Auto) 0.3 (0-0.5) % Neut % (Auto) 76.0 H (45.5-73.1) % Lymph % (Auto) 12.3 L (18.3-44.2) % [place] % (Auto) 9.5 H (2.6-8.5) % Eos % (Auto) 1.6 (0-4.4) % Baso % (Auto) 0.3 (0.2-1.2) % Lymph # (Auto) 0.94 (0.9-3.2) K/mm3 [place] # (Auto) 0.7 H (0.1-0.6) K/mm3 Eos # (Auto) 0.1 (0-0.3) K/mm3 Baso # (Auto) 0.0 (0.0-0.1) K/mm3 Abs Immat Gran (auto) 0.02 (0.00-0.031) K/mm3 Absolute Neuts (auto) 5.8 (1.3-6.7) K/mm3 Absolute Nucleated RBC 0.000 (0.0-0.012) K/mm3 Nucleated RBC % 0.0 (0.0-0.2) % PT 16.2 H (11.1-14.7) Seconds INR 1.3 APTT 27.9 (22.3-36.8) Seconds Sodium 136 L (137-145) mmol/L Potassium 4.1 (3.4-5.0) mmol/L Chloride 103 (98-107) mmol/L Carbon Dioxide 18 L (22-30) mmol/L Anion Gap 15 H (4-12) mmol/L BUN 23 H (9-20) mg/dL Creatinine 1.41 H (0.7-1.3) mg/dL Estim Creat Clear Calc 68 ml/min Estimated GFR 51 L (59 - ) Glucose 181 H (65-110) mg/dL Calcium 8.6 (8.4-10.2) mg/dL Total Bilirubin 1.1 (0.2-1.3) mg/dL AST 31 (17-59) U/L ALT 37 (6-50) U/L Alkaline Phosphatase 72 (38-126) U/L Troponin I < 0.012 < 0.012 (0.000-0.034) ng/mL Total Protein 7.0 (6.3-8.2) g/dL Albumin 4.2 (3.5-5.1) g/dL Lipase 96 (23-300) U/L Influenza A (RT-PCR) Negative (Negative) Influenza B (RT-PCR) Negative (Negative) RSV (RT-PCR) Negative (Negative) SARS-CoV-2 RNA (RT-PCR) Negative (Negative) Discharge Plan Discharge Clinical Impression: Atypical chest pain, Viral illness Patient Disposition: Home, Self-Care Condition: Stable Instructions: Antibiotic Form, Chest Pain (ED), Viral Syndrome (ED) Patient Language: Urdu Prescriptions: No Action Jardiance 10 mg tablet azithromycin 250 mg tablet See Rx Instructions .ROUTE .COMPLEX Qty: 6 0RF Rx Instructions: For 250 mg dose pack: take 500 mg today (day 1), then 250 mg for 4 days (days 2-5) albuterol sulfate 90 mcg/actuation HFA aerosol inhaler 2 puff inhalation Q4-6H PRN (Reason: shortness of breath or wheezing) 30 Days Qty: 8.5 0RF amoxicillin-pot clavulanate 875-125 mg tablet 1 tablet PO Q12H 7 Days Qty: 14 0RF omeprazole 40 mg capsule,delayed release(DR/EC) 40 mg PO DAILY isosorbide mononitrate 60 mg tablet extended release 24 hr 120 mg PO DAILY albuterol sulfate [Ventolin HFA] 90 mcg/actuation HFA aerosol inhaler 2 puff INHALATION Q4-6H PRN (Reason: Shortness Of Breath) loratadine [Claritin] 10 mg Tablet 10 mg PO DAILY aspirin [Children's Aspirin] 81 mg tablet,chewable 81 mg PO DAILY meclizine 25 mg tablet 25 mg PO TID PRN (Reason: dizzines) Qty: 30 0RF bupropion HCl [Wellbutrin SR] 150 mg tablet sustained-release 12 hr 150 mg PO BID amlodipine 10 mg tablet 10 mg PO DAILY metformin 1,000 mg tablet 1,000 mg PO BID doxazosin [Cardura] 2 mg tablet 2 mg PO HS Trulicity 1.5 mg/0.5 mL pen injector 1.5 mg SUBCUT WEEKLY Rx Instructions: TAKES ON fridays Xarelto 2.5 mg tablet 2.5 mg PO BID atorvastatin 40 mg tablet 80 mg PO HS alprazolam 0.25 mg tablet 0.25 mg PO HS Rx Instructions: at bedtime tamsulosin 0.4 mg capsule 0.4 mg PO DAILY Follow-up/Referrals: Irving,JOVITA Junior [Primary Care Provider] - Time of Disposition: 20:04
--- NOTE | 2024-03-23 17:04 | PC.NURSE ---
Pt. reports nausea and 6/10 L. sided chest pain. Pt. requesting medication. MD Larson notified.
[2024-03-23 17:09] LABS: Influenza A QL RT-PCR Negative (Negative); Influenza B QL RT-PCR Negative (Negative); RSV RNA, RT-PCR Negative (Negative); SARS-CoV-2 RNA PCR Negative (Negative)
[2024-03-23] MEDS: MORPHINE SULFATE (*CRX) 4 MG/ML INJ IV PUSH (17:14)
[2024-03-23] MEDS: ONDANSETRON INJ 4 MG/2 ML VIAL IV PUSH (17:14)
[2024-03-23 19:17] LABS: Troponin I < 0.012 ng/mL (0.000-0.034)
--- NOTE | 2024-03-23 19:20 | PC.NURSE ---
Assumed care of patient after receiving rep.ort from CAR Davis & CAR Shultz @ [phone].
--- OUTSIDE RECORDS SUMMARY | 2024-03-25 02:36 | XMS_ITS | Encounter Summary ---
Author Organization [facility] - [facility] Address [address] [place] [address]. [place] [address] [place] [address] Care Team Providers Care Glaze Handler Name Role Phone Sandi Alfaro Primary Care Provider [phone] Sandi Alfaro Unavailable [phone] Cheryl Huston RN Unavailable Unavailable Encounter Details Date Type Department Care Team (Late st Contact Info) Description 05/13/2021 BabyList Message Enc [facility] - [facility] [address], [address] [place] [address] [facility], [facility] Provider CPAP Social History Tobacco Use Types Packs/Day Years Used Date Smoking Tobacco: Every Day Cigarettes 0.3 40 Smokeless Tobacco: Never Comments:want to quit but gary s alot of stress right [id number] smoking about 3-4 cigaretts a day Alcohol Use Standard Drinks/Week Comments Yes 0 (1 standard drink = 0.6 oz pur e alcohol) very rarely 6 beers/year PHQ-2 Answer Date Recorded PHQ-2 Score - If the patient scores above 3, please move on to questions 3-9 4 01/23/2021 Sex and Gender Information Value Date Recorded Sex Assigned at Not on file Legal Sex Male 8:01 PM CDT Gender Identity Not on file Sexual Orientation Not on file COVID-19 Exposure Response Date Recorded In the last 10 days, have yo u been in contact with someone who was confirmed or suspected to have Coronavirus/COVID-19? No / Unsure 05/14/2021 8:16 AM CDT documented as of this encounter Plan of Treatment Upcoming Encounters Date Type Department Care Team (Late st Contact Info) Description 03/31/2024 8:40 AM FLYER BUILDER Office Visit [facility] Family & Internal [facility] [address] [place] [address] Sandi Alfaro APNP [address] [place] [address] 05/05/2024 8:00 AM FLYER BUILDER Office Visit [facility] Family & Internal [facility] [address] [place] [address] Sandi Alfaro APNP [address] [place] [address] documented as of this encounter Visit Diagnoses Not on filedocumented in this encounter Additional Health Concerns Infection Onset Date Last Indicated Resolved Time COVID-19 Rule Out 05/12/2023 05/12/2023 05/13/2023 12:01 AM CDT Influenza - Seasonal 05/14/2023 05/14/2023 024 12:32 AM CDT Assessment Noted Time PHQ-9 Depression Total Score: 7 01/24/20 21 1:37 PM FLYER BUILDER documented as of this encounter Care Teams Glaze Handler Relationship Specialty Start Date End Date Sandi Alfaro APNP Family & Internal Medicine [address] [address] PCP - General ADVANCED PRACTICE IMPROVEMENT MANAGER 04/28/17 Sandi Alfaro APNP [facility] [place] [address] PCP - Med Group - MSSP Attributed Provider 03/02/15 03/01/22 Cheryl Huston, armhole baster hand (Ambulatory) REGISTERED NURSE 03/23/19 documented as of this encounter
--- OUTSIDE RECORDS SUMMARY | 2024-03-25 02:36 | XMS_ITS | Clinical Summary ---
Author Organization [facility] [place] [address] Address [address] [place] [address] Care Team Providers Care Environmental Protection Officer Name Role Phone Sandi Alfaro Primary Care Provider + Allergies No known active allergies Medications aspirin (ASPIR-81) 81 mg tablet take 1 tablet by oral route every day 0 0 5 Active doxazosin (CARDURA) 2 mg tablet take 1 tablet by oral route every day 0 0 5 Active buPROPion SR (WELLBUTRIN SR) 150 mg 12 hr tablet take 2 Tablet by oral route every day 0 0 6 Active metFORMIN (GLUCOPHAGE) 1,000 mg tablet take 1 tablet by oral route 2 times every day with morning and evening meals 0 0 5 Active TRULICITY 1.5 mg/0.5 mL pen injector 8 Active carvediloL (COREG) 25 mg tablet Take 1 tablet (25 mg total) by mouth 2 (two) times a day with meals Active loratadine 10 mg capsule Take by mouth Active albuterol HFA (PROVENTIL HFA,VENTOLIN HFA,PROAIR HFA) 90 mcg/actuation inhaler Inhale 2 puffs every 6 (six) hours as needed for wheezing Active ALPRAZolam (XANAX) 0.25 mg tablet Take 1 tablet (0.25 mg total) by mouth nightly as needed for sleep 2 Active Symbicort 160-4.5 mcg/actuation inhaler Inhale 2 puffs 2 (two) times a day 2 Active montelukast (SINGULAIR) 10 mg tablet 2 Active amLODIPine (NORVASC) 10 mg tablet TAKE 1 TABLET BY MOUTH EVERY DAY 90 tablet 2 3 Active losartan (COZAAR) 100 mg tablet TAKE 1 TABLET BY MOUTH EVERY DAY 90 tablet 3 Active mupirocin (BACTROBAN) 2 % ointment Apply topically 3 (three) times a day Active ondansetron (ZOFRAN) 4 mg tablet Take 1 tablet (4 mg total) by mouth every 8 (eight) hours as needed for nausea or vomiting Active oxyCODONE-acetam inophen (PERCOCET) 5-325 mg per tabletIndication s:Pain Take 1 tablet by mouth every 4 (four) hours as needed for pain Active methocarbamoL (ROBAXIN) 750 mg tablet Take 1 tablet (750 mg total) by mouth 4 (four) times a day Active nitroglycerin (NITROSTAT) 0.[address] 1 tablet (0.4 mg total) under the tongue every 5 (five) minutes as needed for chest pain 75 tablet 3 3 Active isosorbide mononitrate ER (IMDUR) 60 mg 24 hr tabletIndication s:Coronary artery disease of [place] artery of [place] heart with stable angina pectoris (HCC) TAKE 2 TABLETS BY MOUTH DAILY. 180 tablet 3 4 Active Xarelto 2.5 mg tablet TAKE 1 TABLET BY MOUTH TWICE A DAY 180 tablet 3 4 Active omeprazole (PriLOSEC) 40 mg capsule 4 Active atorvastatin (LIPITOR) 80 mg tablet TAKE 1 TABLET BY MOUTH EVERY DAY 90 tablet 1 4 Active Active Problems Problem Noted Date Diagnosed Date Hematuria, gross 11/13/2021 Chronic heart failure with p reserved ejection fraction (CMS/HCC) 11/12/2018 Cryptogenic stroke 07/06/2018 Status post placement of implantable loop record er 10/13/2017 Overview (10/13/2017): [employer] Reveal Loop Recorder. Dx; Cryptogenic Stroke. DOI 10/12/[address] Willoughby. [facility] remote monitoring. TIA (transient ischemic attack) 10/06/2017 S/P coronary artery stent placement 12/17/2016 Morbid obesity with BMI of 45.0-49.9, adult ([facility]) 08/13/2016 Mixed anxiety depressive disorder 05/01/2015 Overview (06/07/2016): Anxiety and depression Coronary artery disease of n ative artery of [place] heart with stable angina pectoris 02/20/2015 Overview (06/07/2016): Coronary artery disease involving [place] coronary artery of [place] heart with other form of angina pectoris CVA, old, hemiparesis ([facility]) 02/20/2015 Overview (06/07/2016): CVA, old, hemiparesis Mixed diabetic hyperlipidemi a associated with type 2 diabetes mellitus ([facility]) 02/20/2015 Overview (06/07/2016): DM type 2 with diabetic dyslipidemia Hypertensive heart disease with congestive heart failure 02/20/2015 Overview (06/07/2016): Hypertensive heart disease with diastolic heart failure TAMIR on CPAP 10/17/2014 Overview (06/07/2016): TAMIR on CPAP Diabetes mellitus 10/17/2014 Overview (06/07/2016): DM (diabetes mellitus) Hypertension associated with diabetes 10/17/2014 Overview (06/07/2016): HTN (hypertension), benign Encounters Date Type Department Care Team Description 03/24/2024 Telephone [facility] Cardiology [address] [place] [address] Fernando Modi MD Chest Pain 01/18/2024 9:00 AM GLOST KILN OPERATOR Office Visit [facility] [address] [place] [address] Fernando Modi MD Coronary artery disease of [place] artery of [place] heart with stable angina pectoris (HCC) (Primary Dx); Chronic heart failure with preserved ejection fraction ([facility]) (HCC); Mixed diabetic hyperlipidemia associated with type 2 diabetes mellitus (CMS/HCC) (HCC); Hypertensive heart disease with chronic diastolic congestive heart failure (CMS/HCC) (HCC) 01/18/2024 Orders Only [facility] Cardiology [address] [place] [address] ProviderStuart MD from Last 3 Months Surgical History Surgery Date Site/Laterality Comments CHOLECYSTECTOMY Medical History Medical History Date Comments Hypertension Coronary artery disease GERD (gastroesophageal reflux disease) Arthritis Diabetes mellitus (HCC) Heart disease Stroke (HCC) Anxiety Sleep apnea Kidney stone GI (gastrointestinal bleed) Lymphoma (HCC) Family History Medical History Relation Name Comments Coronary artery disease Father Father Fredy nary artery disease; Diabetes Father Father Diabetes mellit us; Hearing loss Father Father Heart attack Father Father Heart disease Father Father Hypertension Father Father Hypertension; Other Father Father Bypass; Stroke Father Father Relation Name Status Comments Father Father (Age 65) Social History Tobacco Use Types Packs/Day Years Used Date Smoking Tobacco: Some Days Cigarettes 0.3 15 Smokeless Tobacco: Never Tobacco Cessation:Ready to Q uit: Yes; Counseling Given: Not Answered Alcohol Use Standard Drinks/Week Comments Yes 0 (1 standard drink = 0.6 oz pur e alcohol) Sex and Gender Information Value Date Recorded Sex Assigned at Not on file Legal Sex Male 3:15 AM GLOST KILN OPERATOR Gender Identity Male 09/03/2018 6:22 AM CDT Sexual Orientation Straight 09/03/2018 6: 22 AM CDT Obstetrics History Last Filed Vital Signs Vital Sign Reading Time Taken Comments Blood Pressure 132/80 01/18/2024 8:53 AM GLOST KILN OPERATOR Pulse 82 01/18/2024 8:53 AM GLOST KILN OPERATOR Temperature - - Respiratory Rate - - Oxygen Saturation 96% 01/18/2024 8:53 AM GLOST KILN OPERATOR Inhaled Oxygen Concentration - - Weight 137.4 kg (303 lb) 01/18/2024 8:53 AM GLOST KILN OPERATOR Height 182.9 cm (6') 01/18/2024 8:53 AM GLOST KILN OPERATOR Body Mass Index 41.09 01/18/2024 8:53 AM GLOST KILN OPERATOR Plan of Treatment Health Maintenance Due Date Last Done Comments Albumin Creatinine Ratio, Urine 1959 Colon Cancer Screening-Colonoscopy 1959 Depression Screening 1959 Hemoglobin A1C 1959 Hepatitis C Screening 1959 Prostate Cancer Screening-PSA 1959 eGFR 1959 Dilated Eye Exam 1959 Foot Exam 1959 Pneumococcal vaccine <65 (1 of 2 - PCV) 1965 Hepatitis B Screening 1977 Regular Well Visit/Exam 18-64 1977 Zoster Vaccine (1 of 2) 2009 Covid-19 Vaccine (4 - 2023-2 5 season) 2023 12/31/2020, 05/11/2020, 04/13/2020 Lipid Panel 10/19/2024 10/20/2023, 04/30, 07/01/2022, Additional history exists DTaP/Tdap/Td Vaccine (3 - Td or Tdap) 02/25/2026 02/26/2016, 11/22/2014 Influenza Vaccine Completed 12/16/2023, , 12/31/2021, Additional history exists Procedures Procedure Name Priority Date/Time Associated Diagnosis Comments ECG 12-LEAD Routine 12/24/2023 11:30 AM CDT LIPID PANEL Routine 10/20/2023 from Last 3 Months or Most Recently Relevant to Health Maintenance Results * ECG 12 lead (12/24/2023 11:30 AM CDT) Historical Provider ECG ORDERABLES Edited Re sult - Final * (ABNORMAL) Lipid panel (10/20/2023) SCRIBED Cholesterol, Total 87 < - 200 EXTERNAL LAB SCRIBED HDL 24 > - 40 EXTERNAL LAB SCRIBED LDL 20 < - 100 EXTERNAL LAB SCRIBED Triglycerides 213(A) < - 150 EXTERNAL LAB Blood 10/20/2023 us Historical Provider LAB BLOOD ORDERABLES Elida puri Result EXTERNAL LAB from Last 3 Months or Most Recently Relevant to Health Maintenance Insurance MEDICARE [facility] MEDICARE MEDICARE [employer] MEDICARE Care Teams Environmental Protection Officer Relationship Specialty Start Date End Date Sandi Alfaro PA PCP - General Nurse Practitioner 08/21/17
--- OUTSIDE RECORDS SUMMARY | 2024-03-25 02:36 | XMS_ITS | Clinical Summary ---
Author Organization [facility] Address [address] [place] [address]. [place] [address] [place] [address] Care Team Providers Care Crop Research Scientist Name Role Phone Sandi Alfaro Primary Care Provider [phone] Cheryl Huston RN Unavailable Unavailable Allergies No known active allergies Medications aspirin 81 MG tablet Take 1 tablet (81 mg total) by mouth daily. 10/18/19 15 Active nitroglycerin 0.[address] 1 tablet (0.4 mg total) under the tongue every 5 (five) minutes as needed for Chest Pain. 08/26/19 19 Active rivaroxaban 2.5 MG tablet Take 1 tablet (2.5 mg total) by mouth 2 (two) times daily. Active atorvastatin 80 MG tablet Take 1 tablet (80 mg total) by mouth daily. 04/20/19 21 Active FLUTICASONE PROPIONATE 50 MCG/ACT nasal sprayIndications: Acute sinusitis SPRAY ONE SPRAY INTO EACH NOSTRIL ONCE DAILY 16 mL 1 09/07/19 21 Active LORATADINE 10 MG tabletIndications :Seasonal allergic rhinitis due to pollen TAKE 1 TABLET BY MOUTH EVERY DAY 30 tablet 32 11/08/19 21 Active isosorbide mononitrate ER 60 MG 24 hr tablet Take 2 tablets (120 mg total) by mouth daily. 08/13/19 22 Active montelukast (SINGULAIR) 10 MG tabletIndications :Chronic cough Take 1 tablet (10 mg total) by mouth nightly at bedtime. 90 tablet 3 11/16/19 22 Active Glucose Blood (ONETOUCH VERIO) test stripIndications: Type 2 diabetes mellitus without complication, without long-term current use of insulin ([facility]/HCC HHS/HCC) USE 1 STRIP BY OTHER ROUTE 2 (TWO) TIMES A DAY. 100 strip 03/24/19 24 Active tamsulosin (FLOMAX) 0.4 MG Cap Take 1 capsule (0.4 mg total) by mouth nightly at bedtime. 04/21/19 24 Active Fluticasone-Umecl idin-Vilant (TRELEGY ELLIPTA) 200-62.5-25 MCG/ACT AEROSOL POWDER, BREATH ACTIVATEDIndicati ons:Mild emphysema (CMS/HCC HHS/HCC) Inhale 1 puff into the lungs daily as needed (shortness of breath). 05/13/19 24 Active vitamin B-12 (CYANOCOBALAMIN) 1000 MCG tablet Take 1 tablet (1,000 mcg total) by mouth daily. 30 tablet 05/15/19 24 Active traMADol (ULTRAM) 50 MG tabletIndications :Acute Pain < 3 Day Supply Take 1 tablet (50 mg total) by mouth every 6 (six) hours as needed for Pain. Indications : Acute Pain < 3 Day Supply 10 tablet 06/17/19 24 Active CPAP DEVICE, DME,Indications:O bstructive sleep apnea syndrome 1 Device by Does not apply route nightly at bedtime. This order includes all CPAP supplies as well 1 Device 07/02/19 24 Active HYDROcodone-aceta minophen (NORCO) 5-325 MG tablet take 1 tablet by mouth every 6 hours as needed for pain for 3 days 06/26/19 24 Active dulaglutide (TRULICITY) 3 MG/0.5ML injectionIndicati ons:Dyslipidemia associated with type 2 diabetes mellitus ([facility] HHS/HCC) Inject 3 mg into the skin once a week. 6 mL 11 08/26/19 24 Active fluticasone-salme terol (ADVAIR HFA) 115-21 MCG/ACT inhalerIndication s:Mild emphysema (CMS/HCC HHS/HCC) Inhale 2 puffs into the lungs 2 (two) times daily. 12 g 3 11/27/19 24 Active buPROPion SR (WELLBUTRIN SR) 150 MG 12 hr tabletIndications :Mixed anxiety depressive disorder TAKE 1 TABLET BY MOUTH TWICE A DAY 180 tablet 01/18/20 24 Active doxazosin (CARDURA) 2 MG tabletIndications :Hypertensive heart disease with congestive heart failure, unspecified heart failure type ([facility] HHS/HCC) TAKE 1 TABLET BY MOUTH EVERYDAY AT BEDTIME 90 tablet 01/18/20 24 Active amLODIPine (NORVASC) 10 MG tabletIndications :Primary hypertension TAKE 1 TABLET BY MOUTH EVERY DAY 90 tablet 01/18/20 24 Active metFORMIN (GLUCOPHAGE) 1000 MG tabletIndications :Diabetic foot ([facility]) TAKE 1 TABLET BY MOUTH TWICE A DAY 180 tablet 1 01/18/20 24 Active omeprazole (PRILOSEC) 40 MG capsuleIndication s:Gastroesophagea l reflux disease without esophagitis TAKE 1 CAPSULE (40 MG TOTAL) BY MOUTH DAILY. 90 capsule 1 01/18/20 24 Active ondansetron (ZOFRAN-ODT) 4 MG disintegrating tabletIndications :Nausea Take 1 tablet (4 mg total) by mouth every 8 (eight) hours as needed. FOR NAUSEA 10 tablet 01/27/20 24 Active meclizine (ANTIVERT) 25 MG tablet TAKE 1 TABLET BY MOUTH THREE TIMES A DAY NEEDED FOR DIZZINES 01/29/20 24 Active empagliflozin (JARDIANCE) 10 MG tabletIndications :Type 2 diabetes mellitus without complication, without long-term current use of insulin ([facility]) Take 1 tablet (10 mg total) by mouth daily. 90 tablet 02/16/20 24 Active ALPRAZolam (XANAX) 0.25 MG tabletIndications :Mixed anxiety depressive disorder TAKE 1 TABLET (0.25 MG TOTAL) BY MOUTH 3 TIMES A DAY NEEDED FOR SLEEP Strength: 0.25 mg 30 tablet 03/01/20 24 Active ondansetron (ZOFRAN-ODT) 4 MG disintegrating tabletIndications :Vertigo Take 1 tablet (4 mg total) by mouth every 8 (eight) hours as needed for Nausea. 30 tablet 03/22/19 25 Active losartan (COZAAR) 100 MG tabletIndications :Hypertensive heart disease with congestive heart failure, unspecified heart failure type ([facility]),Primary hypertension TAKE 1 TABLET BY MOUTH EVERY DAY 90 tablet 1 03/23/19 25 Active losartan 100 MG tablet Take 1 tablet (100 mg total) by mouth daily. 024 Discontinued(R eorder) ALPRAZolam (XANAX) 0.25 MG tabletIndications :Mixed anxiety depressive disorder TAKE 1 TABLET (0.25 MG TOTAL) BY MOUTH 3 TIMES A DAY NEEDED FOR SLEEP Strength: 0.25 mg 30 tablet 01/27/20 24 024 Discontinued(R eorder) ondansetron (ZOFRAN-ODT) 4 MG disintegrating tabletIndications :Vertigo Take 1 tablet (4 mg total) by mouth every 8 (eight) hours as needed for Nausea. 20 tablet 02/05/20 24 025 Discontinued(R eorder) losartan (COZAAR) 100 MG tabletIndications :Hypertensive heart disease with congestive heart failure, unspecified heart failure type ([facility]),Primary hypertension Take 1 tablet (100 mg total) by mouth daily. 30 tablet 03/01/20 24 025 Discontinued Active Problems Problem Noted Date Diagnosed Date Polyneuropathy associated wi th underlying disease ([facility]) 12/16/2023 Morbid (severe) obesity due to excess calories ([facility]) 05/15/2022 Body mass index (BMI) 40.0-44.9, adult ([facility]) 05/15/2022 Acute hyperglycemia 05/17/2021 Anxiety 05/17/2021 Arthritis 05/17/2021 Atypical syncope 05/17/2021 Calculus of left ureter 05/17/2021 Eczema 05/17/2021 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/17/2021 penitentiary current use of anticoagulant therapy 0 05/17/2021 Peripheral neuropathy 05/17/2021 Rectal polyp 05/17/2021 Swelling of left lower extremity 05/17/2021 Tear of medial meniscus of knee 05/17/2021 Tobacco abuse 05/17/2021 Pain due to ureteral stent 05/17/2021 Cigarette nicotine dependence without complicati on 03/14/2019 Seasonal allergic rhinitis due to pollen 019 Chronic heart failure with p reserved ejection fraction ([facility]) 11/12/2018 Arthralgia of left hand 11/02/2018 Enchondroma of bone of hand, left 11/02/2018 Carpal tunnel syndrome on left 08/26/2018 Cryptogenic stroke ([facility]) 07/06/2018 Skin lesion of right arm 06/28/2018 Weakness 05/26/2018 Status post placement of implantable loop record er 10/13/2017 Overview (01/13/2018): Overview: [employer] Reveal Loop Recorder. Dx; Cryptogenic Stroke. DOI 10/12/[address] Willoughby. [facility] remote monitoring. TIA (transient ischemic attack) 10/06/2017 Mild emphysema ([facility]) 08/28/2017 Hepatic steatosis 08/28/2017 Memory loss 05/18/2017 Chest pain 04/30/2017 S/P coronary artery stent placement 12/17/2016 Hemorrhoids 10/03/2016 Hearing loss 08/01/2016 Decreased hearing 07/17/2016 Chronic nausea 03/27/2016 Diabetic foot ([facility]) 03/10/2016 Abdominal wall bulge 03/10/2016 CHF (congestive heart failure) ([facility]) 01/14/2016 Peripheral edema 12/19/2015 Tinnitus 11/08/2015 History of kidney stones 10/03/2015 Insomnia 05/07/2015 Chronic cough 03/20/2015 Hypertensive heart disease w ith congestive heart failure ([facility]) 02/20/2015 Overview (01/13/2018): Overview: Hypertensive heart disease with diastolic heart failure Coronary artery disease of n ative artery of [place] heart with stable angina pectoris 02/20/2015 Overview (01/13/2018): Overview: Coronary artery disease involving [place] coronary artery of [place] heart with other form of angina pectoris CVA, old, hemiparesis ([facility]) 02/21/20 15 Overview (01/13/2018): Overview: CVA, old, hemiparesis Dyslipidemia associated with type 2 diabetes mellitus ([facility]) 02/20/2015 Overview (01/13/2018): Overview: DM (diabetes mellitus) Overview: DM type 2 with diabetic dyslipidemia Mixed diabetic hyperlipidemi a associated with type 2 diabetes mellitus ([facility]) 02/20/2015 Overview (05/17/2021): DM type 2 with diabetic dyslipidemia Hypoxia 09/26/2014 Arteriosclerosis of coronary artery 09/15/2014 Overview (01/13/2018): Transitioned From: Coronary artery disease Dyspnea on exertion 09/08/2014 Obstructive sleep apnea syndrome 09/08/2014 Overview (01/13/2018): Overview: TAMIR on CPAP Urinary hesitancy 07/31/2014 Mixed anxiety depressive disorder 03/23/2014 Overview (01/13/2018): Overview: Anxiety and depression Esophageal reflux 10/24/2013 Arthritis of neck 09/05/2013 Primary hypertension 08/23/2013 Overview (01/04/2020): Overview: HTN (hypertension), benign Overview: HTN (hypertension), benign Cerebrovascular accident (CVA) ([facility]) 08/23/2013 Hyperlipidemia 08/23/2013 Resolved Problems Problem Noted Date Diagnosed Date Resolved Date Left nephrolithiasis 10/07/2017 018 Encounter for screening for lung cancer 04/09/2017 06/28/2018 BMI 45.0-49.9, adult ([facility]) 10/03/2016 05/15/2022 Morbid obesity ([facility]) 08/13/2016 05/15/2022 Encounter for preventive health examination 08/23/2013 06/28/2018 Encounters Date Type Department Care Team Description 03/22/2024 Telephone [facility] Family & Internal [address] [phone] Sandi Alfaro APNP Medication Request; Advice 02/26/2024 Telephone [facility] [address] [phone] Sandi Alfaro APNP Medication Request 02/22/2024 Scan [employer] INFO SRVCS Scanned, [facility] 02/10/2024 Telephone [facility] [address] [phone] Sandi Alfaro APNP Lab Results 02/05/2024 9:20 AM HOUSE SHORER Office Visit [address] [phone] Sandi Alfaro, APNP Mass (Follow-up on left arm mass) 02/05/2024 Travel 01/29/2024 Scan [facility] INFO SRVCS Scanned, [facility] Image (SCAN); CT (SCAN) 01/29/[address] [phone] Sandi Alfaro, APNP Results 01/28/2024 Scan [facility] INFO SRVCS Scanned, [facility] 01/22/2024 Scan [facility] INFO SRVCS Scanned, [facility] Ultrasound (SCAN) 01/21/2024 Scan [facility] INFO SRVCS Scanned, [facility] 01/19/2024 10:00 AM HOUSE SHORER Office Visit [address] [phone] Sandi Alfaro, APNP Mass (Left arm) 01/19/2024 Scan [facility] INFO SRVCS Scanned, [facility] 01/19/2024 Travel 01/18/2024 Scan [facility] INFO SRVCS Scanned, [facility] 12/28/[address] [phone] Sandi Alfaro, APNP Refill Request 12/25/2023 Scan [facility] INFO SRVCS Scanned, [facility] MRI (SCAN) 12/24/2023 Scan [facility] INFO SRVCS Scanned, [facility] Image (SCAN); Lab (SCAN); CT (SCAN) from Last 3 Months Immunizations Name Administration Dates Next Due Fluzone (IIV3, Trivalent, 0. 5 ML Prefilled Syringe) 12/16/2023 Fluzone 6 Months+ Quad (0.5 mL Prefilled Syringe) 12/23/2022,12/31/2021,12/31/2020,2019 Fluzone Adult - >Age 3 (Pref illed Syringe) 11/26/2017 Influenza Adult (Generic) 05/29/2015,02/15/2015 MODERNA COVID-19 (12+) MRNA, LNP-S, PF, 100 MCG/ 0.5 ML DOSE 05/11/2020,04/13/2020 PFIZER COVID-19 (ORIGINAL FORMULATION, PURPLE CAP) mRNA, LNP-S, PF, 30 MCG/0.3 ML DOSE 12/31/2020 PFIZER COVID-19 BIVALENT (12 +) mRNA, LNP-S, PF, 30 MCG/0.3 ML DOSE 12/31/2021 Pneumococcal (Prevnar 20) 06/28/2021 Tdap (Adacel) 02/26/2016 Tdap (Generic) 02/26/2016,11/22/2014 Family History Medical History Relation Comments Heart Disease Father Diabetes Mother Heart Disease Sister Relation Status Comments Father Mother Sister Social History Tobacco Use Types Packs/Day Years Used Date Smoking Tobacco: Former Cigarettes 0.3 40 Smokeless Tobacco: Never Tobacco Cessation:Counseling Given: Yes Comments:currently smoking 1-2 cigarettes a day Alcohol Use Standard Drinks/Week Comments Yes 0 (1 standard drink = 0.6 oz pur e alcohol) very rarely 6 beers/year Waste Remediesities Answer Date Recorded In the past 12 months has [employer], [employer], oil, or water [employer] threatened to shut off services in your home? No 05/12/2023 Humiliation, Afraid, Rape, and Kick questionnair e Answer Date Recorded Within the last year, have y ou been afraid of your partner or ex-partner? No 05/12/2023 Within the last year, have y ou been humiliated or emotionally abused in other ways by your partner or ex-partner? No Within the last year, have y ou been kicked, hit, slapped, or otherwise physically hurt by your partner or ex-partner? No 05/12/2023 Within the last year, have y ou been raped or forced to have any kind of sexual activity by your partner or ex-partner? No 05/12/2023 Social Connection and Isolat ion Panel [NHANES] Answer Date Recorded In a typical week, how many times do you talk on the phone with family, friends, or neighbors? More than three times a week 05/12/2023 How often do you get togethe r with friends or relatives? More than three times a week 05/12/2023 How often do you attend chur ch or taoist services? Never 05/12/2023 Do you belong to any clubs o r organizations such as islam groups, unions, fraternal or athletic groups, or school groups? No 05/12/2023 How often do you attend meet ings of the clubs or organizations you belong to? Never 05/12/2023 Are you , , di vorced, , never , or living with a partner? 05/12/2023 AUDIT-C Answer Date Recorded Q1: How often do you have a drink containing alcohol? Never 05/12/2023 Q2: How many drinks containi ng alcohol do you have on a typical day when you are drinking? Patient does not drink Q3: How often do you have si x or more drinks on one occasion? Never 05/12/2023 Overall Financial Resource Strain (CARDIA) Answe r Date Recorded How hard is it for you to pa y for the very basics like food, housing, medical care, and heating? Somewhat hard 05/12/2023 PHQ-2 Answer Date Recorded Patient Health Questionnaire-2 Score 0 05/21/2023 [facility] - Occupational Stress Questionnaire Answer Date Recorded Do you feel stress - tense, restless, nervous, or anxious, or unable to sleep at night because your mind is troubled all the time - these days? Not at all 05/12/2023 Exercise Vital Sign Answer Date Recorde d On average, how many days pe r week do you engage in moderate to strenuous exercise (like a brisk walk)? 0 days 05/12/2023 On average, how many minutes do you engage in exercise at this level? 0 min 05/12/2023 Hunger Vital Sign Answer Date Recorded Within the past 12 months, y ou worried that your food would run out before you got the money to buy more. Sometimes true Within the past 12 months, t he food you bought just didn't last and you didn't have money to get more. Sometimes true 01/2024 PRAPARE - Transportation Answer Date Re corded In the past 12 months, has l ack of transportation kept you from medical appointments or from getting medications? No 04/30 In the past 12 months, has l ack of transportation kept you from meetings, work, or from getting things needed for daily living? No 05/12/2023 Housing Stability Vital Sign Answer Ottoniel e Recorded In the last 12 months, was t here a time when you were not able to pay the mortgage or rent on time? No 05/12/2023 In the last 12 months, how many places have you lived? 1 05/12/2023 In the last 12 months, was t here a time when you did not have a steady place to sleep or slept in a assisted (including now)? No 05/12/2023 Sex and Gender Information Value Date Recorded Sex Assigned at Not on file Legal Sex Male 8:01 PM CDT Gender Identity Not on file Sexual Orientation Not on file Last Filed Vital Signs Vital Sign Reading Time Taken Comments Blood Pressure 126/76 02/05/2024 9:31 AM HOUSE SHORER Pulse 79 02/05/2024 9:31 AM HOUSE SHORER Temperature 36.5 ??C (97.7 ??F) 02/05/2024 9:31 AM CS T Respiratory Rate 16 02/05/2024 9:31 AM HOUSE SHORER Oxygen Saturation 98% 02/05/2024 9:31 AM HOUSE SHORER Inhaled Oxygen Concentration - - Weight 139.3 kg (307 lb 3.2 oz) 02/05/2024 9:31 AM HOUSE SHORER Height 182.9 cm (6') 02/05/2024 9:31 AM HOUSE SHORER Body Mass Index 41.66 02/05/2024 9:31 AM HOUSE SHORER Plan of Treatment Upcoming Encounters Date Type Department Care Team (Late st Contact Info) Description 03/31/2024 8:40 AM HOUSE SHORER Office Visit [facility] Family & Internal Medicine [address] [phone] Sandi Alfaro APNP [address] [place] [phone] 05/05/2024 8:00 AM HOUSE SHORER Office Visit [facility] Family & Internal Medicine - [address] [phone] Sandi Alfaro, CRIS [facility] [place] [address] Health Maintenance Due Date Last Done Comments Annual Physical 1963 COVID-19 Vaccine ( season) 2023 12/31/2021, 12/31/2020, 05/11/2020, Additional history exists Lipid Panel 05/12/2024 05/13/2023, 05/0 04/2022, 06/28/2021, Additional history exists PHQ-2 (Physician [place]) 05/20/2024 05/21/2023 Hemoglobin A1C 08/05/2024 02/05/2024, 04/30, 12/23/2022, Additional history exists RSV Immunization or 60+ Years (1 - Risk 60-74 years 1-dose series) 11/25/2024 Postponed fro m 2019 (Going to Outside Clinic) Zoster Vaccines (1 of 2) 11/25/2024 Pos tponed from 2009 (Going to Outside Clinic) ASCVD Statin 02/04/2025 Postponed from 1959 (Patient Refused) Kidney Health Evaluation 02/04/2025 02/05/2024 Colorectal Cancer Screening Colonoscopy (10 Years) 03/28/2025 03/28/2015 Diabetes: Retinopathy Eye Exam 04/20/2025 04/20/2023, 04/07/2022, 03/25/2021 DTaP, Tdap and Td Vaccines (4 - Td or Tdap) 02/25/2026 02/26/2016, 02/26/2016, 11/22/2014 Hepatitis C Completed 06/28/2021, 05/26/2018 Pneumococcal Vaccine: Pediatrics (0 to 5 Years) and At-Risk Patients (6 to 64 Years) Completed 06/28/2021 Influenza Adult Completed 12/16/2023, 12/01, 12/31/2021, Additional history exists Meningococcal B Vaccine Aged Out No l onger eligible based on patient's age to complete this topic Meningococcal Vaccine Aged Out No shyam jose eligible based on patient's age to complete this topic RSV Immunizations Under 20 Months Aged Out No longer eligible based on patient's age to complete this topic Procedures Procedure Name Priority Date/Time Associated Diagnosis Comments ALBUMIN URINE RANDOM W/CREATININE Routine 02/05/2024 11:04 AM HOUSE SHORER Mixed diabetic hyperlipidemia associated with type 2 diabetes mellitus ([facility] HHS/HCC) COLLECT.CAPILLARY (FNGR,HEEL,EAR) Routine 02/05/2024 10:00 AM HOUSE SHORER Type 2 diabetes mellitus without complication, without long-term current use of insulin ([facility] HHS/HCC) HEMOGLOBIN, GLYCOSYLATED Routine 02/05/2024 Type 2 diabetes mellitus without complication, without long-term current use of insulin ([facility] HHS/[facility]) CT GENERIC 01/29/2024 IMAGE GENERIC 01/29/2024 IMAGE GENERIC 01/29/2024 ULTRASOUND GENERIC (SCAN ORDER) 01/22/2024 MRI GENERIC 12/25/2023 CT GENERIC 12/24/2023 OUTSIDE PT/INR (SCAN ORDER) 12/24/2023 OUTSIDE LAB (SCAN ORDER) 12/24/2023 OUTSIDE LAB (SCAN ORDER) 12/24/2023 OUTSIDE LAB (SCAN ORDER) 12/24/2023 IMAGE GENERIC 12/24/2023 LIPID PANEL Routine 05/13/2023 6:00 AM CDT DIABETIC RETINOPATHY EXAM (NEGATIVE)(SCAN ORDER) Routine 04/20/2023 HEPATITIS C ANTIBODY W/RFX TO HCV RNA Routine 06/28/2021 11:22 AM CDT Need for hepatitis C screening test COLONOSCOPY GENERIC (SCAN ORDER) Routine 03/28/2015 from Last 3 Months or Most Recently Relevant to Health Maintenance Results * (ABNORMAL) ALBUMIN/CREATININE RATIO, RANDOM URINE (02/05/2024 11:04 AM HOUSE SHORER) MICROALBUMIN (U) 635.8(H) <20 MG/L 02/05/20 3:47 PM HOUSE SHORER [facility] CREATININE RANDOM (U) 87.3 MG/DL 02/05/2024 3:47 PM HOUSE SHORER [facility] ALBUMIN/CREAT RATIO 728.3(H) <30 MG/G 02/05/2024 3:47 PM HOUSE SHORER [facility] [place] URINE SPECIMEN / Unknown 02/05/2024 11:04 AM HOUSE SHORER Sandi LYNCH URINE ORDERABLES Final Resu lt Performing Organization Address City/[facility]/ZIP Co de Phone Number [facility] [employer] [address] [place] [address], [place] [phone] * HEMOGLOBIN, GLYCOSYLATED (02/05/2024) HGB A1C 6.5 % [facility] 02/05/2024 Sandi LYNCH LABORATORY Final Resul t Performing Organization Address City/[facility] Co de Phone Number [facility] [address] [place] [address], [place] * CT GENERIC (01/29/2024) Only the most recent of2 resultswithin the time period is included. Anatomical Region Laterality Modality Other 01/29/2024 [facility] Scanned SCANNING Final Resu lt * IMAGE GENERIC (01/29/2024) Only the most recent of3 resultswithin the time period is included. Anatomical Region Laterality Modality Other 01/29/2024 [facility] Scanned SCANNING Final Resu lt * ULTRASOUND GENERIC (SCAN ORDER) (01/22/2024) Anatomical Region Laterality Modality Other 01/22/2024 us [facility] Scanned SCANNING Final Resu lt * MRI GENERIC (12/25/2023) Anatomical Region Laterality Modality Other 12/25/2023 [facility] Group Scanned SCANNING Final Resu lt * OUTSIDE PT/INR (SCAN ORDER) (12/24/2023) 12/24/2023 [facility] Group Scanned SCANNING Final Resu lt * OUTSIDE LAB (SCAN ORDER) (12/24/2023) Only the most recent of3 resultswithin the time period is included. 12/24/2023 [facility] Group Scanned SCANNING Final Resu lt * (ABNORMAL) LIPID PANEL (05/13/2023 6:00 AM CDT) CHOLESTEROL 87 <200 MG/DL 05/13/2023 7:18 AM CDT [facility] TRIGLYCERIDES 213(H) <150 MG/DL 05/13/2023 7:18 AM CDT [facility] HDL 24(L) >40.0 MG/DL 05/13/2023 7:18 AM CDT [facility] LDL (CALCULATED) 20 <100 MG/DL 05/13/2023 7:18 AM CDT [facility] NON HDL CHOLESTEROL 63 <130 MG/DL 05/13/2023 7:18 AM CDT [facility] CHOL/HDL RATIO 3.6 0.0 - 4.5 05/13/2023 7:18 AM CDT [facility] VLDL CALCULATION 43 5 - 55 MG/DL 05/13/2023 7:18 AM CDT [facility] LIPID INTERPRETATION 05/13/2023 7:18 AM CDT [facility] Comment: [facility] CONCENSUS REPORT RECOMMENDATIONS: ?ADULT ?CHILD ??LOW RISK: ?CHOLESTEROL ? <200 ? <170 ?TRIGLYCERIDE ?<150 ?--- ?HDL ? >=60 ?--- ?LDL ? <100 ? <110 ??BORDERLINE: ?CHOLESTEROL ? 200-239 ?? 170-199 ?TRIGLYCERIDE ?150-199 ? --- ?HDL ?40-59 ?--- ?LDL ? 100-159 ?? 110-129 ??HIGH RISK: ?CHOLESTEROL ? >=240 ?>=200 ?TRIGLYCERIDE ?>=200 ? --- ?HDL ?<40 ?--- ?LDL ? >=160 ?>=130 05/13/2023 6:00 AM CDT us Ayanna Bellamy MD LABORATORY Final Re sult [facility] [address] [place] [address], * DIABETIC RETINOPATHY EXAM (NEGATIVE) (04/20/2023) [facility] Scanned SCANNING Final Resu lt Performing Organization Address City/[facility] Co de Phone Number [facility] * HEPATITIS C ANTIBODY W/RFX TO HCV RNA ([facility] ONLY) (06/28/2021 11:22 AM CDT) HEPATITIS C AB NON-REACTI VE NON-REACT ARETHA [facility] SIGNAL TO CUTOFF 0.01 <[address] [facility] Comment: HCV antibody was non-reactive. There is no laboratory evidence of HCV infection. In most cases, no further action is required. However, if recent HCV exposure is suspected, a test for HCV RNA (test code 51886) is suggested. For additional information please refer to http://education.Kryptiq/faq/NJR99y5 (This link is being provided for informational/ educational purposes only.) 06/28/2021 11:2 2 AM CDT 06/29/2021 10:18 AM CDT Sandi LYNCH LABORATORY Final Resul t Performing Organization Address [facility] Co de Phone Number [facility] [address] [place] [address] * COLONOSCOPY (03/28/2015) 03/28/2015 us Documents Scanned SCANNING Edited Result - Final from Last 3 Months or Most Recently Relevant to Health Maintenance Insurance MEDICARE MEDICAID MEDICAID Advance Directives * Full Code (Latest Code Status on File) Date Activated Date Inactivated Comments 05/12/2023 9:50 PM 05/14/2023 4:50 PM * Full Code Date Activated Date Inactivated Comments 05/01/2017 6:00 PM 05/02/2017 3:18 PM * Full Code Date Activated Date Inactivated Comments 04/30/2017 11:13 PM 05/01/2017 6:00 PM Care Teams Crop Research Scientist Relationship Specialty Start Date End Date Sandi Alfaro APNP Family & Internal Medicine [address] [address] PCP - General [facility]ACT[facility] FREEDOM OF INFORMATION OFFICER 04/28/17 Cheryl Huston, regulatory attorney (Ambulatory) REGISTERED NURSE 03/23/19
--- OUTSIDE RECORDS SUMMARY | 2024-03-25 02:36 | XMS_ITS | Patient Health Summary ---
Author Organization [facility] Address [address] [place] [address] Care Team Providers Care Systematic Theology Professor Name Role Phone Sandi Alfaro MECHANIC SENIOR-RAILROAD SUPERVISOR OF ENGINES Primary Care Provider Note from [facility],non-owned Affiliates and Associated Physician Practices is amultiple site organization consisting of ambulatory clinics and hospital sitesin [place], [place], [place] and [place]. This disclosure is being madepursuant to the Care Everywhere program and may not contain all information available regarding this patient. Last updated 17.[facility] Allergies No known active allergies Medications * Be aware that medications may not be up to date on this document. Alwaysverify current medications with the patient. * pantoprazole EC (PROTONIX) 40 MG tablet(Started 08/21/2016) Take 40 mg by mouth DAILY. 3 refills left * bumetanide (BUMEX) 2 MG tablet(Started 08/20/2016) Take 4 mg by mouth DAILY. * metFORMIN (GLUCOPHAGE) 1000 MG tablet(Started 08/20/2016) Take 1,000 mg by mouth 2 times daily with morning and evening meal. * amLODIPine (NORVASC) 10 MG tablet(Started 08/19/2016) Take 10 mg by mouth DAILY. * docusate sodium (COLACE) 100 MG capsule(Started 08/19/2016) Take 100 mg by mouth. * albuterol-ipratropium (COMBIVENT RESPIMAT) 20-100 MCG/ACT inhaler(Started 08/19/2016) Inhale 1 puff by mouth 4X/day. * aspirin (ASPIRIN) 81 MG chew tablet(Started 08/19/2016) Take 81 mg by mouth DAILY. * clopidogrel (PLAVIX) 75 MG tablet(Started 08/19/2016) Take 75 mg by mouth DAILY. * carvedilol (COREG) 3.125 MG tablet(Started 08/19/2016) Take 6.25 mg by mouth 2 times daily with morning and evening meal. * buPROPion SR 12hr (WELLBUTRIN-SR) 100 MG tablet(Started 08/19/2016) Take 150 mg by mouth. * isosorbide mononitrate CR 24hr (IMDUR) 60 MG tablet Take 60 mg by mouth once daily * doxazosin (CARDURA) 2 MG tablet Take 2 mg by mouth at bedtime * potassium chloride (KLOR-CON) 20 MEQ packet Take 40 mEq by mouth once daily * fluticasone-vilanterol (BREO ELLIPTA) 100-25 MCG/INH inhaler Inhale 1 puff by mouth once daily Administer at the same time each day. Rinse mouth after using * dulaglutide (TRULICITY) 0.75 MG/0.5ML injection Inject 0.75 mg subcutaneously every 7 days * losartan (COZAAR) 100 MG tablet Take 100 mg by mouth once daily * dexlansoprazole (DEXILANT) 30 MG capsule Take 30 mg by mouth once daily * cyclobenzaprine (FLEXERIL) 10 MG tablet Take 10 mg by mouth 3 times daily as needed for Muscle Spasms * atorvastatin (LIPITOR) 40 MG tablet(Started 05/28/2018) Take 1 tablet by mouth once daily 4 refills remaining Active Problems Problem Noted Date Diagnosed Date Weakness 05/26/2018 Cerebrovascular accident (CVA) 05/26/2018 Cerebral infarction 08/20/2016 Tissue plasminogen activator (tPA) administered at other facility within 24 hours prior to current admission Social History Tobacco Use Types Packs/Day Years Used Date Smoking Tobacco: Every Day Smokeless Tobacco: Never Alcohol Use Standard Drinks/Week Comments No 0 (1 standard drink = 0.6 oz pur e alcohol) Sex and Gender Information Value Date Recorded Sex Assigned at Not on file Gender Identity Not on file Sexual Orientation Not on file Last Filed Vital Signs Vital Sign Reading Time Taken Comments Blood Pressure 138/86 05/28/2018 7:58 AM CDT Pulse 85 05/28/2018 7:58 AM CDT Temperature 36.7 ??C (98 ??F) 05/28/2018 7:58 AM CDT Respiratory Rate 20 05/28/2018 7:58 AM CDT Oxygen Saturation 97% 05/28/2018 7:58 AM CDT Inhaled Oxygen Concentration 28% 10:01 PM CDT Weight 148.7 kg (327 lb 13.2 oz) 05/28/2018 4:11 AM CDT Height 182.9 cm (6') 05/26/2018 6:00 PM CDT Body Mass Index 44.46 05/26/2018 6:00 PM CDT Procedures * CARDIAC EKG ORDER(Performed 07/02/2018) * GLUCOSE - POINT OF CARE(Performed 05/28/2018) * PLATELET ANTIBODY DRUG DEPENDENT(Performed 05/28/2018) * MAGNESIUM BLOOD(Performed 05/27/2018) * PHOSPHORUS BLOOD(Performed 05/27/2018) * CBC W/O DIFFERENTIAL(Performed 05/27/2018) * BASIC METABOLIC PANEL (CALCIUM TOTAL)(Performed 05/27/2018) * GLUCOSE - POINT OF CARE(Performed 05/27/2018) * GLUCOSE - POINT OF CARE(Performed 05/27/2018) * MRI BRAIN WO CONTRAST(Performed 05/27/2018) Performed for Weakness * GLUCOSE - POINT OF CARE(Performed 05/27/2018) * ECHO COMPLETE W BUBBLE STUDY(Performed 05/27/2018) Performed for Weakness * TROPONIN I(Performed 05/27/2018) * GLUCOSE - POINT OF CARE(Performed 05/27/2018) * MAGNESIUM BLOOD(Performed 05/26/2018) * PHOSPHORUS BLOOD(Performed 05/26/2018) * TROPONIN I(Performed 05/26/2018) * CBC W/O DIFFERENTIAL(Performed 05/26/2018) * BASIC METABOLIC PANEL (CALCIUM TOTAL)(Performed 05/26/2018) * TROPONIN I(Performed 05/26/2018) * HIV-1 HIV-2 ANTIGEN/ANTIBODY(Performed 05/26/2018) * HEPATITIS C AB SCREEN RFLX NAAT QUANT(Performed 05/26/2018) * TROPONIN I(Performed 05/26/2018) * URINE DRUG SCREEN IMMUNOASSAY(Performed 05/26/2018) * EKG 12-LEAD(Performed 05/26/2018) Performed for Weakness * PT EVAL AND TREAT(Performed 05/26/2018) * TYPE + SCREEN PANEL(Performed 05/26/2018) * HEMOGLOBIN A1C(Performed 05/26/2018) * LIPID PROFILE(Performed 05/26/2018) * TROPONIN I(Performed 05/26/2018) * PT-INR [facility](Performed 05/26/2018) * COMPREHENSIVE METABOLIC PANEL(Performed 05/26/2018) * CBC W AUTO DIFFERENTIAL(Performed 05/26/2018) * CT ANGIO BRAIN NECK STROKE(Performed 05/26/2018) Performed for Weakness * CT BRAIN STROKE(Performed 05/26/2018) Performed for Weakness * GLUCOSE ACCUCHECK(Performed 08/21/2016) * MRI BRAIN WO CONTRAST(Performed 08/21/2016) * GLUCOSE ACCUCHECK(Performed 08/21/2016) * BASIC METABOLIC PANEL (CALCIUM TOTAL)(Performed 08/21/2016) * PHOSPHORUS BLOOD(Performed 08/21/2016) * MAGNESIUM BLOOD(Performed 08/21/2016) * CBC W/O DIFFERENTIAL(Performed 08/21/2016) * GLUCOSE ACCUCHECK(Performed 08/20/2016) * CT HEAD WO CONTRAST(Performed 08/20/2016) * GLUCOSE ACCUCHECK(Performed 08/20/2016) * TROPONIN I(Performed 08/20/2016) * CK + CKMB PANEL(Performed 08/20/2016) * GLUCOSE ACCUCHECK(Performed 08/20/2016) * DRUG ABUSE PANEL 10-20+ETHANOL URINE NO CONFIRM(Performed 08/20/2016) * HEMOGLOBIN A1C(Performed 08/20/2016) * CBC W/O DIFFERENTIAL(Performed 08/20/2016) * LIPID PROFILE(Performed 08/20/2016) * HEPATIC FUNCTION PANEL(Performed 08/20/2016) * BASIC METABOLIC PANEL (CALCIUM TOTAL)(Performed 08/20/2016) * PHOSPHORUS BLOOD(Performed 08/20/2016) * MAGNESIUM BLOOD(Performed 08/20/2016) * ECHO COMPLETE(Performed 08/20/2016) * EKG 12-LEAD(Performed 08/20/2016) * CT ANGIO BRAIN AND NECK(Performed 08/19/2016) * TROPONIN I(Performed 08/19/2016) * CBC W AUTO DIFFERENTIAL(Performed 08/19/2016) * CBC W AUTO DIFFERENTIAL(Performed 08/19/2016) * BASIC METABOLIC PANEL (CALCIUM TOTAL)(Performed 08/19/2016) * PT-INR [facility](Performed 08/19/2016) * PTT [facility](Performed 08/19/2016) * TYPE + SCREEN PANEL(Performed 08/19/2016) * GLUCOSE ACCUCHECK(Performed 08/19/2016) * EKG 12-LEAD(Performed 08/19/2016) * CULTURE URINE(Performed 10/19/2013) * CULTURE URINE(Performed 08/29/2013) Results * CARDIAC EKG ORDER (07/02/2018 11:24 AM CDT) Narrative 07/02/2018 11:24 AM CDT Ordered by an unspecified provider. Scanned Document CARDIAC SERVICES ORD ERABLES * (ABNORMAL) GLUCOSE - POINT OF CARE (05/28/2018 6:52 AM CDT) Only the most recent of5 resultswithin the time period is included. [facility] Glucose WB/POC 131(H) 70 - 115 mg/dL 05/28/2018 6:57 AM CDT [facility] Specimen Type Arterial/C apillary 05/28/2018 6:57 AM CDT [facility] Blood BLOOD SPECIMEN / Unknown 05/28/2018 6:52 AM CDT 05/28/2018 6:57 AM CDT Narrative [facility] - 05/28/2018 6:57 AM CDT NURSE HEALTHCARE MANAGER: MARIZOL ??JHONY Erick Vera MD LAB - POINT OF CARE ORDERABLES Performing Organization Address [facility]/State/[facility] Co de Phone Number [address] [phone] * PLATELET ANTIBODY DRUG DEPENDENT (05/28/2018 4:14 AM CDT) [facility] Patient Serum Without Drug Comment 06/16/2018 4:11 PM CDT [facility] ([facility]) Comment:Reference lab report sent via fax. Blood BLOOD SPECIMEN / Unknown Lab Venipuncture / Unknown 05/28/2018 4:14 AM CDT 05/28/2018 4:32 AM CDT [facility] ([facility]) - 06/16/2018 4:11 PM CDT Performed at: ??01 - [facility] [facility] [address] [place] [address] ??[phone] Patent Litigation Associate: Husam Reyes MD, Phone: ??[phone] Tone Brower MD LAB - COAGULATION OR DERABLES [facility] ([facility]) [address] [place] [address] * (ABNORMAL) CBC W/O DIFFERENTIAL (05/27/2018 11:30 PM CDT) Only the most recent of4 resultswithin the time period is included. WBC 7.1 3.5 - 10.5 10? 3 /uL 05/28/2018 12:01 AM [facility] RBC 4.15(L) 4.30 - 5.70 10? 6 /uL 05/28/2018 12:01 AM [facility] Hemoglobin 12.8(L) 13.5 - 17.5 g/dL 05/28/2018 12:01 AM [facility] Hematocrit 37.1(L) 39.0 - 50.0 % 05/28/2018 12:01 AM [facility] MCV 89.4 81.0 - 97.0 fL 05/28/2018 12:01 AM [facility] MCH 30.8 28.0 - 34.0 pg 05/28/2018 12:01 AM [facility] MCHC 34.5 32.0 - 36.0 g/dL 05/28/2018 12:01 AM [facility] Platelet Count 135(L) 150 - 400 10? 3 /uL 05/28/2018 12:01 AM [facility] RDW-SD 44.0 36.0 - 50.0 fL 05/28/2018 12:01 AM [facility] RDW-CV 13.5 11.2 - 14.8 % 05/28/2018 12:01 AM [facility] MPV 11.4 9.3 - 12.8 fL 05/28/2018 12:01 AM [facility] nRBC Absolute 0.00 0 10? 3 /uL 05/28/2018 12:01 AM [facility] nRBC Auto 0.0 0 /100 WBC 05/28/2018 12:01 AM [facility] Blood BLOOD SPECIMEN / Unknown Lab Venipuncture / Unknown 05/27/2018 11:30 PM CDT 05/27/2018 11:55 PM CDT Mehul Floyd MD LAB - HEMATOLOGY ORD ERABLES [facility] [address] [phone] * BASIC METABOLIC PANEL (CALCIUM TOTAL) (05/27/2018 11:30 PM CDT) Only the most recent of5 resultswithin the time period is included. BUN 17 7 - 26 mg/dL 05/28/2018 12:17 AM [facility] Creatinine 1.1 0.6 - 1.2 mg/dL 05/28/2018 12:17 AM [facility] Sodium 137 136 - 145 mmol/L 05/28/2018 12:17 AM [facility] Potassium 4.0 3.5 - 4.5 mmol/L 05/28/2018 12:17 AM [facility] Chloride 103 98 - 107 mmol/L 05/28/2018 12:17 AM [facility] CO2 24 22 - 29 mmol/L 05/28/2018 12:17 AM [facility] Glucose 102 70 - 115 mg/dL 05/28/2018 12:17 AM [facility] Calcium 9.4 8.4 - 10.2 mg/dL 05/28/2018 12:17 AM [facility] Anion Gap 14 8 - 18 05/28/2018 12:17 AM [facility] BUN/Creatinine Ratio 15 7 - 23 05/28/2018 12:17 AM [facility] Osmolality Calculated 286 270 - 300 mOsm/kg 05/28/2018 12:17 AM [facility] eGFR >60 >60 mL/min/1.7 3 m2 05/28/2018 12:17 AM [facility] Blood BLOOD SPECIMEN / Unknown Lab Venipuncture / Unknown 05/27/2018 11:30 PM CDT 05/27/2018 11:55 PM CDT Mehul Floyd MD LAB - CHEMISTRY LORENZA BULLARD Performing Organization Address [facility] [place] [address], [facility] [phone] * PHOSPHORUS BLOOD (05/27/2018 11:30 PM CDT) Only the most recent of4 resultswithin the time period is included. Phosphorus 3.2 2.3 - 4.7 mg/dL 05/28/2018 12:17 AM CDT [facility] Blood BLOOD SPECIMEN / Unknown Lab Venipuncture / Unknown 05/27/2018 11:30 PM CDT 05/27/2018 11:55 PM CDT Mehul Floyd MD LAB - CHEMISTRY LORENZA BULLARD Performing Organization Address [facility] [place] [address], [facility] [phone] * MAGNESIUM BLOOD (05/27/2018 11:30 PM CDT) Only the most recent of4 resultswithin the time period is included. Magnesium 1.7 1.6 - 2.6 mg/dL 05/28/2018 12:17 AM CDT [facility] Blood BLOOD SPECIMEN / Unknown Lab Venipuncture / Unknown 05/27/2018 11:30 PM CDT 05/27/2018 11:55 PM CDT Mehul Floyd MD LAB - CHEMISTRY LORENZA BULLARD Performing Organization Address [facility] [place] [address], [facility] [phone] * MRI BRAIN WO CONTRAST (05/27/2018 12:51 PM CDT) Only the most recent of2 resultswithin the time period is included. Anatomical Region Laterality Modality Head Magnetic Resonan ce 05/27/2018 12:3 9 PM CDT Impressions 05/27/2018 12:43 PM CDT IMPRESSION: No MR evidence of acute infarct or hemorrhage. This report was electronically signed by CARMELA LAZAR ??on 05/27/2018 12:43 PM . Narrative 05/27/2018 12:43 PM CDT MRI BRAIN WITHOUT CONTRAST CLINICAL INFORMATION:post tPA TECHNIQUE: MRI of the brain was performed without intravenous contrast according to standard protocol. COMPARISON: CT head from 05/26/2018 an MRI brain from 08/21/2016 were reviewed. FINDINGS: There is no MR evidence of acute infarction or hemorrhage. Small old infarcts are seen in the right parietal aguayo radiata and bilateral basal ganglia. Mild chronic microvascular ischemic changes are seen. A probable focus of hemosiderin deposition is seen in the right temporal lobe, unchanged. There is mild cerebral and cerebellar volume loss. There is no intracranial mass or mass effect. There is no hydrocephalus or extra-axial fluid collection. The sella and posterior fossa structures are within normal limits. ??Flow voids of major intracranial vessels are noted. The paranasal sinuses and mastoid air cells are clear. Procedure Note Carmela Lazar MD - 05/27/2018 MRI BRAIN WITHOUT CONTRAST CLINICAL INFORMATION:post tPA TECHNIQUE: MRI of the brain was performed without intravenous contrast according to standard protocol. COMPARISON: CT head from 05/26/2018 an MRI brain from 08/21/2016 were reviewed. FINDINGS: There is no MR evidence of acute infarction or hemorrhage. Small old infarcts are seen in the right parietal aguayo radiata and bilateral basal ganglia. Mild chronic microvascular ischemic changes are seen. A probable focus of hemosiderin deposition is seen in the right temporal lobe, unchanged. There is mild cerebral and cerebellar volume loss. There is no intracranial mass or mass effect. There is no hydrocephalusor extra-axial fluid collection. The sella and posterior fossa structuresare within normal limits. Flow voids of major intracranial vessels arenoted. The paranasal sinuses and mastoid air cells are clear. IMPRESSION: No MR evidence of acute infarct or hemorrhage. This report was electronically signed by CARMELA LAZAR on 05/27/2018 12:43 PM . Mehul Floyd MD MR ORDERABLES * ECHO COMPLETE W BUBBLE STUDY (05/27/2018 9:58 AM CDT) Anatomical Region Laterality Modality Color Flow Doppl er 05/27/2018 8:45 AM CDT Narrative Procedure Note Odalis Conner MD - 05/27/2018 Mehul Floyd MD ECHOCARDIOGRAPHY RAD IANT * TROPONIN I (05/27/2018 8:28 AM CDT) Only the most recent of7 resultswithin the time period is included. Pathologist [facility] Troponin I <0.010 <0.032 ng/mL 05/27/2018 9:02 AM CDT [facility] Blood BLOOD SPECIMEN / Unknown Venipuncture / Unknown 05/27/2018 8:28 AM CDT 05/27/2018 8:28 AM CDT Mehul Floyd MD LAB - CHEMISTRY ORDE RABTRAY Performing Organization Address [facility] Co de Phone Number [address] [phone] * HIV-1 HIV-2 ANTIGEN/ANTIBODY (05/26/2018 4:21 PM CDT) [facility] HIV Antigen/Antibod y 1 & 2 Non-reacti ve Non-react kendell 05/26/2018 5:12 PM CDT [facility] Comment: Neither HIV-1 p24 Antigen nor HIV-1/HIV-2 Antibodies are detected. ? Blood BLOOD SPECIMEN / Unknown Venipuncture / Unknown 05/26/2018 4:21 PM CDT 05/26/2018 4:26 PM CDT Jim Ann MD LAB - HEMATOLOGY ORD ERABLES Performing Organization Address City/[facility]/[place] [address], [facility] [phone] * HEPATITIS C AB SCREEN RFLX NAAT QUANT (05/26/2018 4:21 PM CDT) Pathologist [facility] Hepatitis C Antibody Non-react kendell Non-reac tive 05/26/2018 5:13 PM CDT [facility] Comment: Hepatitis C Antibody screen indicates no serologic evidence of past or current infection with Hepatitis C Virus. Patients with unexplained liver disease who are immunocompromised or suspected of having acute Hepatitis C infection may benefit from Nucleic Acid Test (TRINITY) for Hepatitis C Viral RNA to confirm Hepatitis C status. Blood BLOOD SPECIMEN / Unknown Venipuncture / Unknown 05/26/2018 4:21 PM CDT 05/26/2018 4:26 PM CDT Jim Ann MD LAB - CHEMISTRY LORENZA BULLARD [facility] Organization Address City/State/ZIP Co de Phone Number [facility] [address] [place] [address] * DRUG SCREEN TOX URINE PANEL (05/26/2018 3:09 PM CDT) [facility] Amphetamines Screen Urine Negative Negative: < 1000 ng/mL 05/26/2018 3:23 PM CDT [facility] Barbiturates Screen Urine Negative Negative: < 200 ng/mL 05/26/2018 3:23 PM T [facility] Benzodiazepine Screen Urine Negative Negative: < 200 ng/mL 05/26/2018 3:23 PM CDT [facility] Opiates Urine Negative Negative: < 300 ng/mL 05/26/2018 3:23 PM T [facility] Cocaine Metabolites Urine Negative Negative: < 300 ng/mL 05/26/2018 3:23 PM CDT [facility] Phencyclidine Screen Urine Negative Negative: < 25 ng/ml 05/26/2018 3:23 PM T [facility] Cannabinoids Screen Urine Negative Negative: <50 ng/mL 05/26/2018 3:23 PM T [facility] Methadone Screen Urine Negative Negative: < 300 ng/mL 05/26/2018 3:23 PM T [facility] Urine URINE / Unknown Collection / Unknown 05/26/2018 3:09 PM CDT 05/26/2018 3:09 PM CDT Narrative [facility] - 05/26/2018 3:23 PM CDT The Urine Toxicology Screening Panel does not screen for Propoxyphene, Meprobamate, Carisoprodol, Trazodone, gufg-tvy-ievebdo medications and/or volatiles (Acetone, Isopropanol, Methanol or Ethylene Glycol). Ethanol, Salicylate, Acetaminophen, Tricyclic Antidepressants and several therapeutic drugs may be individually assayed in serum or plasma specimen. Toxicology testing by the Laboratory is an aid to medical diagnosis and treatment of patients. No documented chain of custody was maintained. Results are intended to be used for clinical purposes only. ? Mehul Floyd MD LAB - URINE CHEMISTR Y ORDERABLES [facility] [address] [place] [address], [facility] [phone] * EKG 12-LEAD (05/26/2018 2:35 PM CDT) Only the most recent of3 resultswithin the time period is included. Ventricular Rate 78 BPM [facility] MUSE Atrial Rate 78 BPM [facility] MUSE P-R Interval 152 ms [facility] MUSE QRS Duration ms 96 ms [facility] MUSE Q-T Interval ms 422 ms [facility] MUSE QTC Calculation (Bezet) 481 ms [facility] MUSE Calculated P [place] 47 degrees [facility] MUSE Calculated R [place] 2 degrees [facility] MUSE Calculated T [place] 36 degrees [facility] MUSE Interpretation EKG NORMAL SINUS RHYTHM INCOMPLETE RIGHT BUNDLE BRANCH BLOCK PROLONGED QT ABNORMAL ECG WHEN COMPARED WITH ECG OF 20-AUG-2016 05:38, NO SIGNIFICANT CHANGE WAS FOUND Confirmed by Max INGRAM, DEMARCUS ([id number]), proposal editor Jxa Colmenares ([id number]) on 06/09/2018 10:06:25 PM [facility] MUSE 05/26/2018 2:35 PM CDT 06/09/2018 10:06 PM CDT Ruiz Chávez MD ECG ORDERABLES Performing Organization Address City/[facility]/ZIP Co de Phone Number [facility] MUSE * TYPE + SCREEN PANEL (05/26/2018 2:00 PM CDT) Only the most recent of2 resultswithin the time period is included. Antibody Screen NEG 9 3:08 PM CDT [facility] BLOOD BANK LAB ABO Rh A POS 05/26/2018 3:08 PM CDT [facility] BLOOD BANK LAB Blood Bank BLOOD SPECIMEN / Unknown Venipuncture / Unknown 05/26/2018 2:00 PM CDT 05/26/2018 2:13 PM CDT Ruiz Chávez MD LAB - BLOOD BANK ORD ERABLES Performing Organization Address [facility] de Phone Number [facility] BLOOD BANK LAB [address] [place] [address] * PT-INR [facility] (05/26/2018 1:59 PM CDT) Only the most recent of2 resultswithin the time period is included. PT 12.8 12.1 - 14.8 Seconds 05/26/2018 2:14 PM CDT [facility] INR 1.0 See Comment 05/26/2018 2:14 PM CDT [facility] Comment: The suggested therapeutic range for standard coumadin (warfarin) therapy is an INR of 2.0-3.0. For high-risk patients (Mechanical Mitral Valve Prosthesis, etc.), the suggested prophylactic therapeutic range is an INR of 2.5-3.5. Blood BLOOD SPECIMEN / Unknown Venipuncture / Unknown 05/26/2018 1:59 PM CDT 05/26/2018 2:05 PM CDT Ruiz Chávez MD LAB - COAGULATION OR DERABLES Performing Organization Address [facility] Co de Phone Number [facility] [address] [place] [address] * (ABNORMAL) HEMOGLOBIN A1C (05/26/2018 1:59 PM CDT) Only the most recent of2 resultswithin the time period is included. Hemoglobin A1c 6.9(H) 4.4 - 6.3 % 05/27/2018 1:45 PM CDT [facility] Comment:Hemoglobin variant d etected. Abnormal hemoglobin may not form glycated product at the same rate as hemoglobin A and/or hemoglobin variant may interfere with the accurate measurement of HbA1C. Consider measurement of HbA1C by alternative method. Recommend hemoglobin electrophoresis to evaluate the variant hemoglobin if clinically indicated. Estimated Average Glucose 151 mg/dL 05/27/2018 1:45 PM CDT [facility] Comment: HbA1c Interpretation: Treatment target values recommended by ADA and other clinical organizations should be used to evaluate metabolic control in patients. Treatment Target Values: Normal : < 5.7% Pre-diabetes: 5.7-6.4% Diabetes: Equal to or greater than 6.5% Reference: [place] [employer] Standards of Care in Diabetes -2014 In patients 70 years and older consider HbA1c target range of 7.0-7.5% Reference: ??Diabetes Mellitus in Older People: Position Statement on behalf of the International Association of Gerontology and Geriatrics (IAGG), the Diabetes Working Constitution Party for Older People (EDWPOP), and the International Task Force of Experts in Diabetes. ??Anil Irvin et al. J [place] [employer]. 2012 Test results diagnostic of diabetes should be repeated for confirmation. The Sebia Capillary 2 assay for the measurement of HbA1c is a National Glycohemoglobin Standardization Program (NGSP)certified method. Blood BLOOD SPECIMEN / Unknown Venipuncture / Unknown 05/26/2018 1:59 PM CDT 05/26/2018 2:19 PM CDT Mehul Floyd MD LAB - CHEMISTRY LORENZA [facility] Organization Address City/State/ZIP Co de Phone Number [address] [phone] * (ABNORMAL) CBC W AUTO DIFFERENTIAL (05/26/2018 1:59 PM CDT) Only the most recent of3 resultswithin the time period is included. WBC 8.0 3.5 - 10.5 10? 3 /uL 05/26/2018 2:08 PM [facility] RBC 4.70 4.30 - 5.70 10? 6 /uL 05/26/2018 2:08 PM [facility] Hemoglobin 14.3 13.5 - 17.5 g/dL 05/26/2018 2:08 PM [facility] Hematocrit 42.0 39.0 - 50.0 % 05/26/2018 2:08 PM [facility] MCV 89.4 81.0 - 97.0 fL 05/26/2018 2:08 PM [facility] MCH 30.4 28.0 - 34.0 pg 05/26/2018 2:08 PM [facility] MCHC 34.0 32.0 - 36.0 g/dL 05/26/2018 2:08 PM [facility] Platelet Count 158 150 - 400 10? 3 /uL 05/26/2018 2:08 PM [facility] RDW-SD 44.7 36.0 - 50.0 fL 05/26/2018 2:08 PM [facility] RDW-CV 13.7 11.2 - 14.8 % 05/26/2018 2:08 PM [facility] MPV 10.9 9.3 - 12.8 fL 05/26/2018 2:08 PM [facility] nRBC Absolute 0.00 0 10? 3 /uL 05/26/2018 2:08 PM [facility] nRBC Auto 0.0 0 /100 WBC 05/26/2018 2:08 PM [facility] Neutrophils % 69.0 35.0 - 70.0 % 05/26/2018 2:08 PM [facility] Lymphocytes % 16.7(L) 19.7 - 55.1 % 05/26/2018 2:08 PM [facility] Monocytes % 9.7 3.0 - 15.0 % 05/26/2018 2:08 PM [facility] Eosinophils % 4.1 0.0 - 6.0 % 05/26/2018 2:08 PM [facility] Basophil % 0.1 0.0 - 1.5 % 05/26/2018 2:08 PM [facility] Neutrophils Absolute 5.5 1.6 - 7.0 10? 3 /uL 05/26/2018 2:08 PM T [facility] Lymphocyte Absolute 1.3 0.8 - 2.9 10? 3 /uL 05/26/2018 2:08 PM [facility] Monocytes Absolute 0.78(H) 0.14 - 0.66 10? 3 /uL 05/26/2018 2:08 PM [facility] Eosinophils Absolute 0.33 0.00 - 0.45 10? 3 /uL 05/26/2018 2:08 PM [facility] Basophils Absolute 0.01 0.00 - 0.06 10? 3 /uL 05/26/2018 2:08 PM [facility] Immature Granulocytes % 0.4 0.0 - 1.0 % 05/26/2018 2:08 PM [facility] Blood BLOOD SPECIMEN / Unknown Venipuncture / Unknown 05/26/2018 1:59 PM CDT 05/26/2018 2:05 PM CDT Ruiz Chávez MD LAB - HEMATOLOGY ORD ERABLES [facility] [address] [place] [address] * (ABNORMAL) COMPREHENSIVE METABOLIC PANEL (05/26/2018 1:59 PM CDT) BUN 25 7 - 26 mg/dL 05/26/2018 2:23 PM [facility] Creatinine 1.1 0.6 - 1.2 mg/dL 05/26/2018 2:23 PM [facility] Sodium 138 136 - 145 mmol/L 05/26/2018 2:23 PM [facility] Potassium 4.1 3.5 - 4.5 mmol/L 05/26/2018 2:23 PM [facility] Chloride 101 98 - 107 mmol/L 05/26/2018 2:23 PM [facility] CO2 26 22 - 29 mmol/L 05/26/2018 2:23 PM [facility] Glucose 109 70 - 115 mg/dL 05/26/2018 2:23 PM [facility] Calcium 9.9 8.4 - 10.2 mg/dL 05/26/2018 2:23 PM [facility] Protein Total 7.8 6.0 - 8.3 g/dL 05/26/2018 2:23 PM [facility] Albumin 4.0 3.4 - 5.0 g/dL 05/26/2018 2:23 PM [facility] Bilirubin Total 0.8 0.2 - 1.2 mg/dL 05/26/2018 2:23 PM [facility] Alkaline Phosphatase 57 40 - 150 Units/L 05/26/2018 2:23 PM [facility] ALT 56(H) 0 - 55 Units/L 05/26/2018 2:23 PM [facility] AST 44(H) 5 - 34 Units/L 05/26/2018 2:23 PM [facility] Anion Gap 15 8 - 18 05/26/2018 2:23 PM [facility] BUN/Creatinine Ratio 23 7 - 23 05/26/2018 2:23 PM [facility] Osmolality Calculated 291 270 - 300 mOsm/kg 05/26/2018 2:23 PM [facility] Albumin/Globulin Ratio 1.1 1.1 - 2.3 05/26/2018 2:23 PM [facility] eGFR >60 >60 mL/min/1.7 3 m2 05/26/2018 2:23 PM [facility] Blood BLOOD SPECIMEN / Unknown Venipuncture / Unknown 05/26/2018 1:59 PM CDT 05/26/2018 2:05 PM T Ruiz Chávez MD LAB - CHEMISTRY [facility] Organization Address City/State/ZIP Co de Phone Number [address] [phone] * (ABNORMAL) LIPID PROFILE (05/26/2018 1:59 PM CDT) Only the most recent of2 resultswithin the time period is included. Cholesterol Total 125 <200 mg/dL 05/26/2018 2:46 PM [facility] HDL 26(L) >40 mg/dL 05/26/2018 2:46 PM CDT [facility] Comment: ATP III Classification of HDL Cholesterol: ? <40 mg/dL: ??Considered a major risk factor. ? >60 mg/dL: ??Considered a negative risk factor. ? LDL Calculated 38 <100 mg/dL 05/26/2018 2:46 PM CDT [facility] Comment: ATP III Classification of LDL Cholesterol: ?<100 mg/dL: ??Optimal ? 100 - 129 mg/dL: ??Near Optimal/Above Optimal ? 130 - 159 mg/dL: ??Borderline High ? 160 - 189 mg/dL: ??High ?>190 mg/dL: ??Very High ? Triglycerides 307(H) <150 mg/dL 05/26/2018 2:46 PM [facility] Comment: ATP III Classification of Triglycerides: ?<150 mg/dL: ??Normal ? 150 - 199 mg/dL: ??Borderline High ? 200 - 400 mg/dL: ??High ?>500 mg/dL: ??Very High Blood BLOOD SPECIMEN / Unknown Venipuncture / Unknown 05/26/2018 1:59 PM CDT 05/26/2018 2:19 PM CDT Mehul Floyd MD LAB - CHEMISTRY [facility]ORENZA [facility]ARD Performing Organization Address City/State/[facility] Co de Phone Number [address] [phone] * CT ANGIO BRAIN NECK STROKE (05/26/2018 1:40 PM CDT) Anatomical Region Laterality Modality Head Computed Tomogra phy 05/26/2018 1:36 PM CDT Impressions 05/26/2018 2:09 PM CDT IMPRESSION: No acute intracranial CT abnormality. CTA of the head demonstrates no significant stenosis or occlusion of the larger intracranial arteries. CTA of the neck demonstrates no significant carotid or vertebral stenosis. Report dictated by Shaun Garland MD (residential sales associate). I, Dr. YOSELYN MURILLO have personally reviewed and interpreted this examination/study. This report was electronically signed by YOSELYN MURILLO ??on 05/26/2018 2:09 PM . Narrative 05/26/2018 2:09 PM CDT EXAMINATION: 1. CT of the head without contrast 2. CT angiography of the head and neck with contrast HISTORY: Left-sided weakness TECHNIQUE: CT of the head was performed without contrast according to standard protocol. Then CT angiography of the head and neck was obtained after the uneventful administration of 100 mL Isovue-370 intravenous contrast. Three dimensional postprocessing was performed by the technologist and sent to the workstation for review. COMPARISON: Outside hospital CT head dated 05/26/2018 from [facility], CT head dated 05/19/2018, MRI brain dated 08/21/2016 FINDINGS: Noncontrast CT head: No intracranial hemorrhage or extra-axial fluid collection. Shepherd-white matter differentiation is preserved. Old lacunar infarct in the right coronary radiata. Mild burden of hypoattenuation in the periventricular white matter and beyond, most likely chronic small vessel ischemic disease. Calcified plaque at the ICA cavernous segments. No mass, mass effect, or midline shift. No change in normal ventricle size, shape, and configuration. Mild cerebral volume loss. The bony calvarium appears unremarkable. Noted scattered calcification foci in right parotid gland, may be sequela of old infectious, inflammatory, or autoimmune process.. CTA HEAD: In the anterior circulation, atherosclerosis of bilateral ICA cavernous segments, without significant stenosis. The MCAs and the ACAs appear unremarkable. In the posterior circulation, the intracranial vertebrals, basilar artery, and the photo lab specialist appear unremarkable. CTA NECK: Noted normal variant common origin of the innominate and left CCA, otherwise image aortic arch and proximal great vessels appear unremarkable. In the right anterior circulation, calcified plaque at carotid bifurcation, with no measurable stenosis using NASCET calculation. Noted tortuosity of the ICA which deviates into the retropharyngeal space. In the left anterior circulation, common carotid, carotid bifurcation, cervical internal carotid appear unremarkable. No measurable stenosis using NASCET calculation. In the posterior circulation, the extracranial vertebrals appear unremarkable and are codominant. Nonvascular related incidental findings: Noted sebaceous cyst in the right suboccipital subcutaneous region measuring about 1 cm. Noted cervical spine degenerative changes, worst at C5-6 and C6-7 levels. Procedure Note Yoselyn Murillo MD - 05/26/2018 EXAMINATION: 1. CT of the head without contrast 2. CT angiography of the head and neck with contrast HISTORY: Left-sided weakness TECHNIQUE: CT of the head was performed without contrast according to standard protocol. Then CT angiography of the head and neck was obtained after the uneventful administration of 100 mL Isovue-370 intravenous contrast. Three dimensional postprocessing was performed by the technologist and sent to the workstation for review. COMPARISON: Outside hospital CT head dated 05/26/2018 from [facility], CT head dated 05/19/2018, MRI brain dated 08/21/2016 FINDINGS: Noncontrast CT head: No intracranial hemorrhage or extra-axial fluid collection. Shepherd-white matter differentiation is preserved. Old lacunar infarct in the right coronary radiata. Mild burden of hypoattenuation in the periventricular white matter and beyond, most likely chronic small vessel ischemic disease. Calcified plaque at the ICA cavernous segments. No mass, mass effect, or midline shift. No change in normal ventricle size, shape, and configuration. Mild cerebral volume loss. The bony calvarium appears unremarkable. Noted scattered calcification foci in right parotid gland, may be sequela of old infectious, inflammatory, or autoimmune process.. CTA HEAD: In the anterior circulation, atherosclerosis of bilateral ICA cavernous segments, without significant stenosis. The MCAs and the ACAs appear unremarkable. In the posterior circulation, the intracranial vertebrals, basilarartery, and the photo lab specialist appear unremarkable. CTA NECK: Noted normal variant common origin of the innominate and left CCA, otherwise image aortic arch and proximal great vessels appear unremarkable. In the right anterior circulation, calcified plaque at carotid bifurcation, with no measurable stenosis using NASCET calculation. Noted tortuosity of the ICA which deviates into the retropharyngeal space. In the left anterior circulation, common carotid, carotid bifurcation, cervical internal carotid appear unremarkable. No measurable stenosis using NASCET calculation. In the posterior circulation, the extracranial vertebrals appear unremarkable and are codominant. Nonvascular related incidental findings: Noted sebaceous cyst in the right suboccipital subcutaneous region measuring about 1 cm. Noted cervical spine degenerative changes, worstat C5-6 and C6-7 levels. IMPRESSION: No acute intracranial CT abnormality. CTA of the head demonstrates no significant stenosis or occlusion of the larger intracranial arteries. CTA of the neck demonstrates no significant carotid or vertebralstenosis. Report dictated by Shaun Garland MD (residential sales associate). Dr. YOSELYN Roman have personally reviewed and interpreted this examination/study. This report was electronically signed by YOSELYN MURILLO on 05/26/2018 2:09 PM . Ruiz Chávez MD CT ORDERABLES * CT BRAIN STROKE (05/26/2018 1:39 PM CDT) Anatomical Region Laterality Modality Head Computed Tomogra phy 05/26/2018 1:36 PM CDT Impressions 05/26/2018 2:09 PM CDT IMPRESSION: No acute intracranial CT abnormality. CTA of the head demonstrates no significant stenosis or occlusion of the larger intracranial arteries. CTA of the neck demonstrates no significant carotid or vertebral stenosis. Report dictated by Shaun Garland MD (residential sales associate). Dr. YOSELYN Roman have personally reviewed and interpreted this examination/study. This report was electronically signed by YOSELYN MURILLO ??on 05/26/2018 2:09 PM . Narrative 05/26/2018 2:09 PM CDT EXAMINATION: 1. CT of the head without contrast 2. CT angiography of the head and neck with contrast HISTORY: Left-sided weakness TECHNIQUE: CT of the head was performed without contrast according to standard protocol. Then CT angiography of the head and neck was obtained after the uneventful administration of 100 mL Isovue-370 intravenous contrast. Three dimensional postprocessing was performed by the technologist and sent to the workstation for review. COMPARISON: Outside hospital CT head dated 05/26/2018 from [facility], CT head dated 05/19/2018, MRI brain dated 08/21/2016 FINDINGS: Noncontrast CT head: No intracranial hemorrhage or extra-axial fluid collection. Shepherd-white matter differentiation is preserved. Old lacunar infarct in the right coronary radiata. Mild burden of hypoattenuation in the periventricular white matter and beyond, most likely chronic small vessel ischemic disease. Calcified plaque at the ICA cavernous segments. No mass, mass effect, or midline shift. No change in normal ventricle size, shape, and configuration. Mild cerebral volume loss. The bony calvarium appears unremarkable. Noted scattered calcification foci in right parotid gland, may be sequela of old infectious, inflammatory, or autoimmune process.. CTA HEAD: In the anterior circulation, atherosclerosis of bilateral ICA cavernous segments, without significant stenosis. The MCAs and the ACAs appear unremarkable. In the posterior circulation, the intracranial vertebrals, basilar artery, and the photo lab specialist appear unremarkable. CTA NECK: Noted normal variant common origin of the innominate and left CCA, otherwise image aortic arch and proximal great vessels appear unremarkable. In the right anterior circulation, calcified plaque at carotid bifurcation, with no measurable stenosis using NASCET calculation. Noted tortuosity of the ICA which deviates into the retropharyngeal space. In the left anterior circulation, common carotid, carotid bifurcation, cervical internal carotid appear unremarkable. No measurable stenosis using NASCET calculation. In the posterior circulation, the extracranial vertebrals appear unremarkable and are codominant. Nonvascular related incidental findings: Noted sebaceous cyst in the right suboccipital subcutaneous region measuring about 1 cm. Noted cervical spine degenerative changes, worst at C5-6 and C6-7 levels. Procedure Note Yoselyn Murillo MD - 05/26/2018 EXAMINATION: 1. CT of the head without contrast 2. CT angiography of the head and neck with contrast HISTORY: Left-sided weakness TECHNIQUE: CT of the head was performed without contrast according to standard protocol. Then CT angiography of the head and neck was obtained after the uneventful administration of 100 mL Isovue-370 intravenous contrast. Three dimensional postprocessing was performed by the technologist and sent to the workstation for review. COMPARISON: Outside hospital CT head dated 05/26/2018 from [facility], CT head dated 05/19/2018, MRI brain dated 08/21/2016 FINDINGS: Noncontrast CT head: No intracranial hemorrhage or extra-axial fluid collection. Shepherd-white matter differentiation is preserved. Old lacunar infarct in the right coronary radiata. Mild burden of hypoattenuation in the periventricular white matter and beyond, most likely chronic small vessel ischemic disease. Calcified plaque at the ICA cavernous segments. No mass, mass effect, or midline shift. No change in normal ventricle size, shape, and configuration. Mild cerebral volume loss. The bony calvarium appears unremarkable. Noted scattered calcification foci in right parotid gland, may be sequela of old infectious, inflammatory, or autoimmune process.. CTA HEAD: In the anterior circulation, atherosclerosis of bilateral ICA cavernous segments, without significant stenosis. The MCAs and the ACAs appear unremarkable. In the posterior circulation, the intracranial vertebrals, basilarartery, and the photo lab specialist appear unremarkable. CTA NECK: Noted normal variant common origin of the innominate and left CCA, otherwise image aortic arch and proximal great vessels appear unremarkable. In the right anterior circulation, calcified plaque at carotid bifurcation, with no measurable stenosis using NASCET calculation. Noted tortuosity of the ICA which deviates into the retropharyngeal space. In the left anterior circulation, common carotid, carotid bifurcation, cervical internal carotid appear unremarkable. No measurable stenosis using NASCET calculation. In the posterior circulation, the extracranial vertebrals appear unremarkable and are codominant. Nonvascular related incidental findings: Noted sebaceous cyst in the right suboccipital subcutaneous region measuring about 1 cm. Noted cervical spine degenerative changes, worstat C5-6 and C6-7 levels. IMPRESSION: No acute intracranial CT abnormality. CTA of the head demonstrates no significant stenosis or occlusion of the larger intracranial arteries. CTA of the neck demonstrates no significant carotid or vertebralstenosis. Report dictated by Shaun Garland MD (residential sales associate). I, Dr. YOSELYN MURILLO have personally reviewed and interpreted this examination/study. This report was electronically signed by YOSELYN MURILLO on 05/26/2018 2:09 PM . Ruiz Chávez MD CT ORDERABLES * (ABNORMAL) GLUCOSE ACCUCHECK (08/21/2016 12:30 PM CDT) Only the most recent of6 resultswithin the time period is included. Glucose, Fingerstick 154(H) 70-115mg/d L mg/dL [facility] RALTrina (BEAKER) Comment:Electrical And Instrumentation Manager: YUNG CARABALLO 08/21/2016 12:3 0 PM CDT Gera Magallon MD LAB - CHEMISTRY [facility] DIEUDONNE NUNEZ) * CT HEAD WO CONTRAST (08/20/2016 2:01 PM CDT) Anatomical Region Laterality Modality Head Other Impressions 08/20/2016 3:20 PM CDT IMPRESSION: 1. No acute intracranial hemorrhage. This report was electronically signed by REBECCA LIND M.D. ??on 08/20/2016 3:20 PM . Narrative 08/20/2016 3:20 PM CDT EXAMINATION: Computed tomography (CT) of the head without contrast HISTORY: Stroke symptoms status post thrombolytic therapy TECHNIQUE: CT of the head was performed without contrast according to standard protocol. FINDINGS: Comparison is made with a study from 19 August 2016. No acute intra- or extra-axial fluid collections are identified. The ventricles are of normal size, shape, and morphology. The basilar cisterns are patent. No mass effect or midline shift is seen. The shepherd-white matter differentiation is normal. The visualized portions of the orbits, paranasal sinuses, and mastoids appear normal. No acute fracture is identified. Procedure Note Rebecca Lind MD - 05/29/2017 EXAMINATION: Computed tomography (CT) of the head without contrast HISTORY: Stroke symptoms status post thrombolytic therapy TECHNIQUE: CT of the head was performed without contrast according tostandard protocol. FINDINGS: Comparison is made with a study from 19 August 2016. No acute intra- or extra-axial fluid collections are identified. Theventricles are of normal size, shape, and morphology. The basilar cisternsare patent. No mass effect or midline shift is seen. The shepehrd-white matterdifferentiation is normal. The visualized portions of the orbits, paranasal sinuses, and mastoids appearnormal. No acute fracture is identified. IMPRESSION IMPRESSION: 1. No acute intracranial hemorrhage. This report was electronically signed by REBECCA LIND M.D. on 08/20/20163:20 PM . Gera Magallon MD CT ORDERABLES * CK + CKMB PANEL (08/20/2016 9:00 AM CDT) CK Total 87 30 - 200 Units/L [facility] CK-MB 0.7 0.0 - 6.6 ng/mL [facility] Blood specimen (specimen) BLOOD SPECIMEN / Unknown 08/20/2016 9:00 AM CDT 08/20/2016 9:14 AM CDT Bishop Walker MD LAB - CHEMISTRY [facility] Organization Address City/State/ZIP Co de Phone Number [address] [phone] * DRUG ABUSE PANEL 10-20+ETHANOL URINE NO CONFIRM (08/20/2016 7:07 AM CDT) Amphetamines Screen Urine Negative Negative: < 1000 ng/mL [facility] Barbiturates Screen Urine Negative Negative: < 200 ng/mL [facility] Benzodiazepine Screen Urine Negative Negative: < 200 ng/mL [facility] Opiates Urine Negative Negative: < 300 ng/mL [facility] Cocaine Metabolites Urine Negative Negative: < 300 ng/mL [facility] Phencyclidine Screen Urine Negative Negative: < 25 ng/ml [facility] Cannabinoids Screen Urine Negative Negative: <50 ng/mL [facility] Methadone Screen Urine Negative Negative: < 300 ng/mL [facility] Urine specimen (specimen) URINE / Unknown 08/20/2016 7:07 AM CDT 08/20/2016 7:22 AM CDT Narrative [facility] - 08/20/2016 8:03 AM CDT The Urine Toxicology Screening Panel does not screen for Propoxyphene, Meprobamate, Carisoprodol, Trazodone, [id number] medications and/or volatiles (Acetone, Isopropanol, Methanol or Ethylene Glycol). Ethanol, Salicylate, Acetaminophen, Tricyclic Antidepressants and several therapeutic drugs may be individually assayed in serum or plasma specimen. Toxicology testing by the Laboratory is an aid to medical diagnosis and treatment of patients. No documented chain of custody was maintained. Results are intended to be used for clinical purposes only. ? Bishop Walker MD LAB - URINE CHEMISTR Y ORDERABLES Performing Organization Address [facility] de Phone Number [address] [phone] * (ABNORMAL) HEPATIC FUNCTION PANEL (08/20/2016 5:28 AM CDT) Protein Total 6.8 6.0 - 8.3 g/dL [facility] Albumin 3.5 3.4 - 5.0 g/dL [facility] Bilirubin Total 0.8 0.2 - 1.2 mg/dL [facility] Bilirubin Conjugated 0.2 0.0 - 0.5 mg/dL [facility] Bilirubin Unconjugated 0.6 Unconjugated Bilirubin is a calculated value: Reference ranges have not been established. mg/dL [facility] Alkaline Phosphatase 55 40 - 150 Units/L [facility] ALT 69(H) 0 - 55 Units/L [facility] AST 46(H) 5 - 34 Units/L [facility] Albumin/Globulin Ratio 1.1 1.1 - 2.3 [facility] Blood specimen (specimen) BLOOD SPECIMEN / Unknown 08/20/2016 5:28 AM CDT 08/20/2016 5:32 AM CDT Bishop Walker MD LAB - CHEMISTRY ORDE RABLES Performing Organization Address [facility] [place] [address], [facility] [phone] * ECHO W DOPPLER AND COLOR FLOW (08/20/2016 12:00 AM CDT) Anatomical Region Laterality Modality Other 08/20/2016 Bishop Walker MD ECHOCARDIOGRAPHY RAD IANT * CT ANGIO BRAIN AND NECK (08/19/2016 6:40 PM CDT) Anatomical Region Laterality Modality Head Other Impressions 08/20/2016 7:24 AM CDT IMPRESSION: 1. No acute intracranial hemorrhage. 2. No large arterial occlusions or significant stenoses identified in the head or visible portions of the neck. The arteries in the inferior neck are obscured by quantum mottle artifact. This report was electronically signed by REBECCA LIND M.D. ??on 08/20/2016 7:24 AM . Narrative 08/20/2016 7:24 AM CDT EXAMINATION: 1. Computed tomography (CT) of the head without and with contrast 2. CT of the neck with contrast HISTORY: Left-sided weakness, status post thrombolytic therapy TECHNIQUE: CT of the head was performed without contrast according to standard protocol. Then CT angiography of the head and neck was obtained after the uneventful administration of 75 mL Omnipaque 350 intravenous contrast. Three dimensional postprocessing was performed by the technologist and sent to the workstation for review. FINDINGS: No prior study is available for comparison at the time of this dictation. Non-angiographic findings: No acute intra- or extra-axial fluid collections are identified. The ventricles are of normal size, shape, and morphology. The basilar cisterns are patent. No mass effect or midline shift is seen. The shepherd-white matter differentiation is normal. The visualized portions of the orbits, paranasal sinuses, and mastoids appear normal. No acute fracture is identified. No soft tissue abnormalities are identified in the neck. Angiographic findings: The visualized aortic arch appears normal. There is a common origin of the innominate and left common carotid arteries from the aortic arch. The innominate and subclavian arteries as well as the proximal common carotid arteries are obscured by quantum mottle artifact related to the patient's body habitus. The distal common carotid arteries appear normal. The carotid bifurcations appear normal. The cervical internal carotid arteries appear normal. The proximal cervical vertebral arteries are obscured by quantum mottle artifact related to the patient's body habitus. The distal cervical vertebral arteries appear normal. There is atherosclerotic disease involving the distal internal carotid arteries without significant focal stenosis. The anterior and middle cerebral arteries appear normal. The distal vertebral arteries appear normal. The basilar artery and posterior cerebral arteries appear normal. No aneurysms, vascular occlusions, or intracranial stenoses are identified. Procedure Note Rebecca Lind MD - 05/29/2017 EXAMINATION: 1. Computed tomography (CT) of the head without and with contrast 2. CT of the neck with contrast HISTORY: Left-sided weakness, status post thrombolytic therapy TECHNIQUE: CT of the head was performed without contrast according tostandard protocol. Then CT angiography of the head and neck was obtainedafter the uneventful administration of 75 mL Omnipaque 350 intravenouscontrast. Three dimensional postprocessing was performed by the technologist and sent to theworkstation for review. FINDINGS: No prior study is available for comparison at the time of thisdictation. Non-angiographic findings: No acute intra- or extra-axial fluid collections are identified. Theventricles are of normal size, shape, and morphology. The basilar cisternsare patent. No mass effect or midline shift is seen. The shepherd-white matterdifferentiation is normal. The visualized portions of the orbits, paranasal sinuses, and mastoids appearnormal. No acute fracture is identified. No soft tissue abnormalities are identified in the neck. Angiographic findings: The visualized aortic arch appears normal. There is a common origin of theinnominate and left common carotid arteries from the aortic arch. Theinnominate and subclavian arteries as well as the proximal common carotidarteries are obscured by quantum mottle artifact related to the patient's body habitus. The distal commoncarotid arteries appear normal. The carotid bifurcations appear normal.The cervical internal carotid arteries appear normal. The proximalcervical vertebral arteries are obscured by quantum mottle artifact related to the patient's body habitus. Thedistal cervical vertebral arteries appear normal. There is atherosclerotic disease involving the distal internal carotidarteries without significant focal stenosis. The anterior and middlecerebral arteries appear normal. The distal vertebral arteries appearnormal. The basilar artery and posterior cerebral arteries appear normal. No aneurysms, vascular occlusions, orintracranial stenoses are identified. IMPRESSION IMPRESSION: 1. No acute intracranial hemorrhage. 2. No large arterial occlusions or significant stenoses identified in thehead or visible portions of the neck. The arteries in the inferior neckare obscured by quantum mottle artifact. This report was electronically signed by REBECCA LIND M.D. on 08/20/20167:24 AM . Bishop Walker MD CT ORDERABLES * PTT U (08/19/2016 6:11 PM CDT) APTT 27.5 23.0 - 38.4 Seconds [facility] Comment:Suggested therapeuti c range for full dose I.V. heparin therapy for venous thromboembolism is 66.0-91.0 seconds. Blood specimen (specimen) BLOOD SPECIMEN / Unknown 08/19/2016 6:11 PM CDT 08/19/2016 6:11 PM CDT Narrative [facility] - 08/19/2016 6:23 PM CDT Please ensure that the aPTT specimen is received in the clinical lab within 1 hour of collection if it is used for therapeutic heparin monitoring. Processing of heparinized specimens older than 1 hour may result in inaccurate test results. Is patient on Heparin, Argatroban or Dabigatran?->N Bishop Walker MD LAB - COAGULATION OR DERABLES [address] [phone] * CULTURE URINE (10/19/2013 11:31 AM CDT) Only the most recent of2 resultswithin the time period is included. Culture Urine No Growth of >=100 CFU/ml after 48 Hours [facility] Urine specimen (specimen) URINE SPECIMEN OBTAINED BY CLEAN CATCH PROCEDURE / Unknown 10/19/2013 11:31 AM CDT 10/19/2013 3:49 PM CDT Narrative [facility] - 10/21/2013 3:11 PM CDT EricSpecalexandrian#[id number] Eric Loc//Bed: 3 [facility]/316/02 CLN CATCH U @ CHRISTIANNE DATE was changed from 10/18/13 to 10/19/13 @ by DELICIA. Historical Provider MD LAB - MICROBIOLOG Y ORDERABLES [address] [phone] Care Teams Systematic Theology Professor Relationship Specialty Start Date End Date Sandi Alfaro, MECHANIC SENIOR-RAILROAD SUPERVISOR OF ENGINES [address] [place] [address] PCP - General 08/27/21
--- OUTSIDE RECORDS SUMMARY | 2024-03-25 02:36 | XMS_ITS | Referral Summary ---
Author Organization [facility] [employer] Address [address] [place] [address] Care Team Providers Care It Trainer Name Role Phone Sandi Alfaro DYE LAB TECHNICIAN-SCALE OPERATOR Primary Care Provider Source Comments [facility] [employer],non-owned Affiliates and Associated Physician Practices is amultiple site organization consisting of ambulatory clinics and hospital sitesin [place], [place], [place] and [place]. This disclosure is being madepursuant to the Care Everywhere program and may not contain all information available regarding this patient. Last updated 17.[facility] [employer] Allergies No known active allergies Medications * Be aware that medications may not be up to date on this document. Alwaysverify current medications with the patient. Medication Sig Dispensed Refills Start Date End Date Status pantoprazole EC (PROTONIX) 40 MG tablet Take 40 mg by mouth DAILY. 30 tablet 3 08/21/2016 Active bumetanide (BUMEX) 2 MG tablet Take 4 mg by mouth DAILY. 08/20/2016 Active metFORMIN (GLUCOPHAGE) 1000 MG tablet Take 1,000 mg by mouth 2 times daily with morning and evening meal. 08/20/2016 Active amLODIPine (NORVASC) 10 MG tablet Take 10 mg by mouth DAILY. 08/19/2016 Active docusate sodium (COLACE) 100 MG capsule Take 100 mg by mouth. 08/19/2016 Active albuterol-ipratrop ium (COMBIVENT RESPIMAT) 20-100 MCG/ACT inhaler Inhale 1 puff by mouth 4X/day. 08/19/2016 Active aspirin (ASPIRIN) 81 MG chew tablet Take 81 mg by mouth DAILY. 08/19/2016 Active clopidogrel (PLAVIX) 75 MG tablet Take 75 mg by mouth DAILY. 08/19/2016 Active carvedilol (COREG) 3.125 MG tablet Take 6.25 mg by mouth 2 times daily with morning and evening meal. 08/19/2016 Active buPROPion SR 12hr (WELLBUTRIN-SR) 100 MG tablet Take 150 mg by mouth. 08/19/2016 Active isosorbide mononitrate CR 24hr (IMDUR) 60 MG tablet Take 60 mg by mouth once daily Active doxazosin (CARDURA) 2 MG tablet Take 2 mg by mouth at bedtime Active potassium chloride (KLOR-CON) 20 MEQ packet Take 40 mEq by mouth once daily Active fluticasone-vilant yane (BREO ELLIPTA) 100-25 MCG/INH inhaler Inhale 1 puff by mouth once daily Administer at the same time each day. Rinse mouth after using Active dulaglutide (TRULICITY) 0.75 MG/0.5ML injection Inject 0.75 mg subcutaneously every 7 days Active losartan (COZAAR) 100 MG tablet Take 100 mg by mouth once daily Active dexlansoprazole (DEXILANT) 30 MG capsule Take 30 mg by mouth once daily Active cyclobenzaprine (FLEXERIL) 10 MG tablet Take 10 mg by mouth 3 times daily as needed for Muscle Spasms Active atorvastatin (LIPITOR) 40 MG tablet Take 1 tablet by mouth once daily 90 tablet 4 05/28/2018 Active Active Problems Problem Noted Date Diagnosed [...] Mass Index 44.46 05/26/2018 6:00 PM CDT Functional Status Functional Status Response Date of Assess ment Is person deaf or have serious hearing difficult y? No 05/28/2018 Is person blind or have serious difficulty seein g? No 05/28/2018 Does person have serious dif ficulty walking/climbing stairs? No 05/28/2018 Does person have difficulty dressing/bathing? No 05/28/2018 Does person have difficulty doing errands alone? No 05/28/2018 Cognitive Status Response Date of Assessm ent Does person have difficulty concentrating/remembering/making decisions? No 05/28/2018 Plan of Treatment Not on file Procedures Procedure Name Priority Date/Time Associated Diagnosis Comments HEPATITIS C AB SCREEN RFLX NAAT QUANT STAT 05/26/2018 4:21 PM CDT HIV-1 HIV-2 ANTIGEN/ANTIBODY STAT 05/26/2018 4:21 PM CDT from Last 3 Months or Most Recently Relevant to Health Maintenance Results * HIV-1 HIV-2 ANTIGEN/ANTIBODY (05/26/2018 4:21 PM CDT) HIV Antigen/Antibod y 1 & 2 Non-reacti ve Non-react kendell 05/26/2018 5:12 PM CDT [facility] Comment: Neither HIV-1 p24 Antigen nor HIV-1/HIV-2 Antibodies are detected. ? Blood BLOOD SPECIMEN / Unknown Venipuncture / Unknown 05/26/2018 4:21 PM CDT 05/26/2018 4:26 PM CDT Jim Ann MD LAB - HEMATOLOGY ORD ERABLES [place] [id number] [phone] * HEPATITIS C AB SCREEN RFLX NAAT QUANT (05/26/2018 4:21 PM CDT) Hepatitis C Antibody Non-react kendell Non-reac tive 05/26/2018 5:13 PM CDT [facility] Comment: Hepatitis C Antibody screen indicates no [...] Ann MD LAB - CHEMISTRY LORENZA BULLARD [address] [phone] from Last 3 Months or Most Recently Relevant to Health Maintenance Advance Directives * Full Code (Latest Code Status on File) Date Activated Date Inactivated Comments 05/26/2018 2:01 PM 05/28/2018 11:56 AM Care Teams It Trainer Relationship Specialty Start Date End Date Sandi Alfaro, DYE LAB TECHNICIAN-SCALE OPERATOR [facility] [place] [address] PCP - General 08/27/21
--- OUTSIDE RECORDS SUMMARY | 2024-03-25 02:36 | XMS_ITS | Encounter Summary ---
Author Organization [facility] Address [address] [place] [address]. [place], [place] [address] [place] [address] Care Team Providers Care Spinner Hydraulic Name Role Phone Sandi Alfaro Primary Care Provider [phone]- [phone] Cheryl Huston RN Unavailable Unavailable Encounter Details Date Type Department Care Team (Late Contact Info) Description 08/27/2022 MyChart Message Enc [facility] Medical [facility] [address] [place], [place] [address] [facility], [facility] Provider Air Quality Message Social History Tobacco Use Types Packs/Day Years Used Date Smoking Tobacco: Every Day Cigarettes 0.3 40 Smokeless Tobacco: Never Comments:currently smoking 2 -3 cigarettes a day Alcohol Use Standard Drinks/Week Comments Yes 0 (1 standard drink = 0.6 oz pur e alcohol) very rarely 6 beers/year PHQ-2 Answer Date Recorded Patient Health Questionnaire-2 Score 5 06/12/2022 Sex and Gender Information Value Date Recorded Sex Assigned at Not on file Legal Sex Male 8:01 PM CDT Gender Identity Not on file Sexual Orientation Not on file COVID-19 Exposure Response Date Recorded In the last 10 days, have yo u been in contact with someone who was confirmed or suspected to have Coronavirus/COVID-19? No / Unsure 07/30/2022 7:43 AM CDT documented as of this encounter Plan of Treatment Upcoming Encounters Date Type Department Care Team (Late st Contact Info) Description 03/31/2024 8:[address] REPORTER Office Visit [facility] Medical [facility] Family & Internal Medicine [address] [address] Sandi Alfaro APNP [address] [place] [address] 05/05/2024 8:[address] REPORTER Office Visit [facility] Medical Group Family & Internal Medicine - [address] [address] Sandi Alfaro APNP [address] [place] [address] documented as of this encounter Visit Diagnoses Not on filedocumented in this encounter Additional Health Concerns Infection Onset Date Last Indicated Resolved Time COVID-19 Rule Out 05/12/2023 05/12/2023 05/13/2023 12:01 AM CDT Influenza - Seasonal 05/14/2023 05/14/2023 024 12:32 AM CDT Assessment Noted Time PHQ-9 Depression Total Score: 13 023 10:48 AM CDT documented as of this encounter Care Teams Spinner Hydraulic Relationship Specialty Start Date End Date Sandi Alfaro APNP Family & Internal Medicine [address] [address] [place] [address] PCP - General ADVANCED PRACTICE BAIT DIGGER 04/28/17 Cheryl Huston loan analyst (Ambulatory) REGISTERED NURSE 03/23/19 documented as of this encounter
--- OUTSIDE RECORDS SUMMARY | 2024-03-25 02:36 | XMS_ITS | Encounter Summary ---
Author Organization [facility] Address [address] [place] [address]. [place], [place] [address] [place] [address] Care Team Providers Care Technical Buyer Name Role Phone Sandi Alfaro Primary Care Provider [phone]- [phone] Cheryl Huston RN Unavailable Unavailable Reason for Visit * Reason Onset Date Comments Medication Request 03/22/2024 Advice 03/22/2024 Encounter Details Date Type Department Care Team (Late st Contact Info) Description 03/22/2024 Telephone [facility] Medical Group Family & Internal Medicine [facility] [address] [place] [address] Sandi Alfaro APNP [address] [place] [address] Medication Request; Advice Social History Tobacco Use Types Packs/Day Years Used Date Smoking Tobacco: Former Cigarettes 0.3 40 Smokeless Tobacco: Never Comments:currently smoking 1 -2 cigarettes a day Alcohol Use Standard Drinks/Week Comments Yes 0 (1 standard drink = 0.6 oz pur e alcohol) very rarely 6 beers/year [facility] Utilities Answer Date Recorded In the past 12 months has e electric, gas, oil, or water company threatened to shut off services in your [...] 05/12/2023 How often do you attend chur or pentecostal services? Never 05/12/2023 Do you belong to any clubs o r organizations such as episcopal groups, unions, fraternal or athletic groups, or [...] Recorded Patient Health Questionnaire-2 Score 0 05/21/2023 [facility] [place] of Occupat ionmt Health - Occupational Stress Questionnaire Answer Date [...] place to sleep or slept in a skilled nursing (including now)? No 05/12/2023 Sex and Gender Information Value Date Recorded Sex Assigned at Not on file Legal Sex Male 8:01 PM CDT Gender Identity Not on file Sexual Orientation Not on file documented as of this encounter Functional Status * Are you deaf or do you have serious difficulty hearing Answer Date of Assessment Author Status No 05/12/2023 10:03 PM ANGELT Tyrel Dawkins RN Active * Are you blind or do you have serious difficulty seeing, even when wearing glasses? Answer Date of Assessment Author Status No 05/12/2023 10:03 PM Tyrel Gerard, CAR Active * Do you have serious difficulty walking or climbing stairs? Answer Date of Assessment Author Status Yes 05/12/2023 10:03 PM Tyrel Gerard, RN Active * Do you have difficulty dressing or bathing? Answer Date of Assessment Author Status No 05/12/2023 10:03 PM Tyrel Gerard, CAR Active * Because of a physical, mental, or emotional condition, do you have difficulty doing errands alone such as visiting a doctor's office or shopping? Answer Date of Assessment Author Status Yes 05/12/2023 10:03 PM CDT Tyrel Dawkins RN Active documented as of this encounter Mental Status * Because of a physical, mental, or emotional condition, do you have serious difficulty concentrating, remembering, or making decisions? Answer Entry Date Author Status No 05/12/2023 10:03 PM CDT Tyrel Dawkins RN Active documented in this encounter Progress Notes * Vivian Anderson MA - 03/22/2024 10:21 AM CST Rx sent, pt aware. Appt r/s to 03/30. EMATICAL SCIENTIST * Vivian Anderson MA - 03/22/2024 10:20 AM CSTAddended by: VIVIAN ANDERSON on: 03/22/2024 10:20 AM Modules accepted: Orders EMATICAL SCIENTIST * CRIS Rizo - 03/22/2024 10:05 AM CST Can send over 4 mg of Zofran, one PO TID PRN, #30, no refills Reschedule today's appt EMATICAL SCIENTIST * Ayanna Jc - 03/22/2024 9:29 AM CST Pt called in stating he woke up 1am with vomiting and diarrhea, states he thinks he has food poisoning. States trying to keep water intake up. Pt asking for something to help with vomiting. Please advise. EMATICAL SCIENTIST documented in this encounter Plan of Treatment Upcoming Encounters Date Type Department Care Team (Late st Contact Info) Description 03/31/2024 8:40 AM MATHEMATICAL SCIENTIST Office Visit [facility] Medical Group Family & Internal Medicine [address] [address] Sandi Alfaro APNP [address] [place] [address] 05/05/2024 8:00 AM MATHEMATICAL SCIENTIST Office Visit [facility] Medical Group Family & Internal Medicine - [place] [address] [place] [address] Sandi Aflaro APNP [address] [place] [address] documented as of this encounter Visit Diagnoses Diagnosis Vertigo Dizziness and giddiness documented in this encounter Additional Health Concerns Assessment Noted Time PHQ-9 Depression Total Score: 0 05/21/19 24 11:21 AM CDT documented as of this encounter Care Teams Technical Buyer Relationship Specialty Start Date End Date Sandi Alfaro APNP Family & Internal Medicine [address] [address] PCP - General ADVANCED PRACTICE INSTRUMENT LENS GENERATOR 04/28/17 Cheryl Huston concrete block layer (Ambulatory) REGISTERED NURSE 03/23/19 documented as of this encounter
--- OUTSIDE RECORDS SUMMARY | 2024-03-25 02:36 | XMS_ITS | Encounter Summary ---
Author Organization [facility] Address [address] [place] [address]. [place], [place] [address] [place] [address] Care Team Providers Care Clinic Office Coordinator Name Role Phone Sandi Alfaro Primary Care Provider [phone] [phone] Sandi Alfaro Unavailable [phone] Cheryl Huston RN Unavailable Unavailable Encounter Details Date Type Department Care Team (Latest Contact Info) Description 10/26/2017 Abstract [facility] Medical Group , Shay Hughes MD Social History Tobacco Use Types Packs/Day Years Used Date Smoking Tobacco: Every Day Cigarettes 0.3 40 Smokeless Tobacco: Never Comments:want to quit but gary s alot of stress right now Alcohol Use Standard Drinks/Week Comments No 0 (1 standard drink = 0.6 oz pur e alcohol) Sex and Gender Information Value Date Recorded Sex Assigned at Not on file Legal Sex Male 8:01 PM CDT Gender Identity Not on file Sexual Orientation Not on file documented as of this encounter Plan of Treatment Upcoming Encounters Date Type Department Care Team (Late st Contact Info) Description 03/31/2024 8:40 AM [employer] HAZMAT TANKER DRIVER Office Visit [facility] Family & Internal Medicine [facility] [address] [place] [address] Sandi Alfaro APNP [address] [place] [address] 05/05/2024 8:00 AM [employer] HAZMAT TANKER DRIVER Office Visit [facility] Family & Internal Medicine [facility] [address] [place] [address] Sandi Alfaro APNP [address] [place] [address] documented as of this encounter Visit Diagnoses Not on filedocumented in this encounter Additional Health Concerns Infection Onset Date Last Indicated Resolved Time COVID-19 Rule Out 10/24/2019 11/25/2019 11/27/2019 1:56 AM CDT COVID-19 Rule Out 05/03/2020 05/03/2020 05/03/2020 3:25 PM [employer] HAZMAT TANKER DRIVER COVID-19 Rule Out 05/12/2023 05/12/2023 05/13/2023 12:01 AM CDT Influenza - Seasonal 05/14/2023 05/14/2023 024 12:32 AM CDT documented as of this encounter Care Teams Clinic Office Coordinator Relationship Specialty Start Date End Date Sandi Alfaro APNP Family & Internal Medicine [address] [address] PCP - General ADVANCED PRACTICE DEBONING TEAM LEADER 04/28/17 Sandi Alfaro APNP [facility] [place] [address] PCP - Med Group - MSSP Attributed Provider 03/02/15 03/01/22 Cheryl Huston, prevention rn (Ambulatory) REGISTERED NURSE 03/23/19 documented as of this encounter
--- OUTSIDE RECORDS SUMMARY | 2024-03-25 02:36 | XMS_ITS | Referral Summary ---
Author Organization [facility] [address] [place] [address] [address] [place] [address] Care Team Providers Care Procedural Nurse Name Role Phone Sandi Alfaro Primary Care Provider + Encounters Date Type Department Care Team Description 03/24/[address] [facility] Cardiology [address] [place] [address] [address] [place] [address] Fernando Modi MD Chest Pain 01/18/[address] [facility] Cardiology [address] [place] [address] [address] [place] [address] ProviderStuart MD 01/18/2024 9:00 AM ELECTRICIAN SECOND Office Visit [facility] Cardiology [address] [place] [address] [address] [place] [address] Fernando Modi MD Coronary artery disease of [place] artery of [place] heart with stable angina pectoris (HCC) (Primary Dx); Chronic heart failure with preserved ejection fraction (CMS/HCC) (HCC); Mixed diabetic hyperlipidemia associated with type 2 diabetes mellitus (CMS/HCC) (HCC); Hypertensive heart disease with chronic diastolic congestive heart failure (CMS/HCC) (HCC) from Last 3 Months Allergies No known active allergies Medications aspirin [...] 24 hr tabletIndication s:Coronary artery disease of [place] artery of [place] heart with stable angina pectoris (HCC) TAKE [...] heart failure with p reserved ejection fraction ([facility]) 11/12/2018 Cryptogenic stroke 07/06/2018 Status post placement of implantable loop record er 10/13/2017 Overview (10/13/2017): Isabella Oliver Reveal Loop Recorder. Dx; Cryptogenic Stroke. DOI 10/12/[address] Willoughby. [email or web address] remote monitoring. TIA (transient ischemic attack) 10/06/2017 S/P coronary artery stent placement 12/17/2016 Morbid obesity with BMI of 45.0-49.9, adult ([facility]) 08/13/2016 Mixed anxiety depressive disorder 05/01/2015 Overview (06/07/2016): Anxiety and depression Coronary artery disease of n ative artery of [place] heart with stable angina pectoris 02/20/2015 Overview (06/07/2016): Coronary artery disease involving [place] coronary artery of [place] heart with other form of angina pectoris CVA, old, hemiparesis ([facility]) 02/20/2015 Overview (06/07/2016): CVA, old, hemiparesis Mixed diabetic hyperlipidemi a associated with type 2 diabetes mellitus ([facility]) 02/20/2015 Overview (06/07/2016): DM type 2 with diabetic dyslipidemia Hypertensive heart disease with congestive heart failure 02/20/2015 Overview (06/07/2016): Hypertensive heart disease with diastolic heart failure TAMIR on CPAP 10/17/2014 Overview (06/07/2016): TAMIR on CPAP Diabetes mellitus 10/17/2014 Overview (06/07/2016): DM (diabetes mellitus) Hypertension associated with diabetes 10/17/2014 Overview (06/07/2016): HTN (hypertension), benign Social History Tobacco Use Types Packs/Day Years Used Date Smoking Tobacco: Some Days Cigarettes 0.3 15 Smokeless Tobacco: Never Tobacco Cessation:Ready to Q uit: Yes; Counseling Given: Not Answered Alcohol Use Standard Drinks/Week Comments Yes 0 (1 standard drink = 0.6 oz pur e alcohol) Sex and Gender Information Value Date Recorded Sex Assigned at Not on file Legal Sex Male 3:15 AM ELECTRICIAN SECOND Gender Identity Male 09/03/2018 6:22 AM CDT Sexual Orientation Straight 09/03/2018 6: 22 AM CDT Last Filed Vital Signs Vital Sign Reading Time Taken Comments Blood Pressure 132/80 01/18/2024 8:53 AM ELECTRICIAN SECOND Pulse 82 01/18/2024 8:53 AM ELECTRICIAN SECOND Temperature - - Respiratory Rate - - Oxygen Saturation 96% 01/18/2024 8:53 AM ELECTRICIAN SECOND Inhaled Oxygen Concentration - - Weight 137.4 kg (303 lb) 01/18/2024 8:53 AM ELECTRICIAN SECOND Height 182.9 cm (6') 01/18/2024 8:53 AM ELECTRICIAN SECOND Body Mass Index 41.09 01/18/2024 8:53 AM ELECTRICIAN SECOND Plan of Treatment Not on file Procedures Procedure Name Priority Date/Time Associated Diagnosis Comments ECG 12-LEAD Routine 12/24/2023 11:30 AM CDT LIPID PANEL Routine 10/20/2023 from Last 3 Months or Most Recently Relevant to Health Maintenance Results * ECG 12 lead (12/24/2023 11:30 AM CDT) us Historical Provider ECG ORDERABLES Edited Re sult [...] Recently Relevant to Health Maintenance Insurance MEDICARE [facility] MEDICARE MEDICARE [facility] MEDICARE Care Teams Procedural Nurse Relationship Specialty Start Date End Date Sandi Alfaro PA PCP - General Nurse Practitioner 08/21/17
--- OUTSIDE RECORDS SUMMARY | 2024-03-25 02:36 | XMS_ITS | Clinical Summary ---
Author Organization [facility] Address [address] [place] [address] Care Team Providers Care Directional Driller Name Role Phone Sandi Alfaro POWER SYSTEMS ENGINEER-CONSULTING DATABASE ADMINISTRATOR Primary Care Provider Source Comments [facility],non-owned Affiliates and Associated Physician Practices is amultiple site organization consisting of ambulatory clinics and hospital sitesin [place], [place], [place] and [place]. This disclosure is being madepursuant to the Care Everywhere program and may not contain all information available regarding this patient. Last updated 17.[facility] Allergies No known active allergies Medications * [...] within 24 hours prior to current admission Family History Medical History Relation Name Comments CAD (Coronary Artery Disease) Father 50s Cardiomyopathy Father Status: Decea sed None Known Mother Status: d Relation Name Status Comments Father Mother Social History Tobacco Use Types Packs/Day Years [...] Mass Index 44.46 05/26/2018 6:00 PM CDT Plan of Treatment Health Maintenance Due Date Last Done Comments COLOGUARD (AGES 45-75) - COL ON CA SCREENING 1959 COLON MONITORING 1959 COLONOSCOPY - COLON CA SCREENING 1959 CT COLONOGRAPHY - COLON CA SCREENING 1959 Colorectal Cancer Screening 1959 FIT - COLON CA SCREENING 1959 FLEX SIG - COLON CA SCREENING 1959 MEDICARE AWV ? 12 MONTHS 1959 DTAP/TDAP/TD VACCINES (1 - Tdap) 1978 PNEUMOCOCCAL VACCINE 50+ (1 of 2 - PCV) 1978 PNEUMOCOCCAL VACCINE (1 of 2 - PCV) 1978 ZOSTER VACCINE (1 of 2) 2009 Respiratory Syncytial Virus (RSV) Vaccine Pt: or over 60 yrs (1 - Risk 60-74 years 1-dose series) 2019 COVID-19 VACCINE ( - 2023-2 5 season) 2023 INFLUENZA VACCINE (#1) 2023 DEPRESSION SCREENING 03/02/2024 HEPATITIS C SCREENING Completed 05/26/2018 HIV SCREENING Completed 05/26/2018 HEPATITIS B VACCINE Aged Out No longe r eligible based on patient's age to complete this topic HIB VACCINE Aged Out No longer eligi ble based on patient's age to complete this topic HPV VACCINE Aged Out No longer eligi ble based on patient's age to complete this topic MENINGOCOCCAL (Group B) VACCINE Aged Out No longer eligible based on patient's age to complete this topic MENINGOCOCCAL VACCINE Aged Out No shyam jose eligible based [...] ve Non-react kendell 05/26/2018 5:12 PM CDT [facility] Comment: Neither HIV-1 p24 Antigen nor HIV-1/HIV-2 Antibodies are detected. ? Blood BLOOD SPECIMEN / Unknown Venipuncture / Unknown 05/26/2018 4:21 PM CDT 05/26/2018 4:26 PM CDT Jim Ann MD LAB - HEMATOLOGY ORD HARSHA Performing Organization Address [facility]/ZIP Co de Phone Number [address] [phone] * HEPATITIS C AB SCREEN RFLX NAAT QUANT (05/26/2018 4:21 PM CDT) Pathologist [facility] Hepatitis C Antibody Non-react kendell Non-reac tive 05/26/2018 5:13 PM CDT [facility] Comment: Hepatitis C Antibody screen indicates [...] Ann MD LAB - CHEMISTRY LORENZA BULLARD Performing Organization Address [facility]/ZIP Co de Phone Number [address] [phone] from Last 3 Months or Most Recently Relevant to Health Maintenance Advance Directives * Full Code (Latest Code Status on File) Date Activated Date Inactivated Comments 05/26/2018 2:01 PM 05/28/2018 11:56 AM Care Teams Directional Driller Relationship Specialty Start Date End Date Sandi Alfaro, POWER SYSTEMS ENGINEER-CONSULTING DATABASE ADMINISTRATOR [address] [place] [id number] PCP - General 08/27/21
--- OUTSIDE RECORDS SUMMARY | 2024-03-25 02:36 | XMS_ITS | Encounter Summary ---
Author Organization [facility] Address [address] [place] [address]. [place] [address] [place] [address] Care Team Providers Care Linseed Cake Trimmer Name Role Phone Sandi Alfaro Primary Care Provider [phone] Cheryl Huston RN Unavailable Unavailable Encounter Details Date Type Department Care Team (Late st Contact Info) Description 08/18/2023 LeanData Message Enc [facility] - [address], [address] [place] [address] [address], [facility] Provider Results Social History Tobacco Use Types Packs/Day Years Used Date Smoking Tobacco: Every Day Cigarettes 0.3 40 Smokeless Tobacco: Never Comments:currently smoking 2 -3 cigarettes a day Alcohol Use Standard Drinks/Week Comments Yes 0 (1 standard drink = 0.6 oz pur e alcohol) very rarely 6 beers/year [facility] Utilities Answer Date Recorded In the past 12 months has [employer] gas, oil, or water [employer] threatened to shut off services in your [...] How often do you attend chur or confucianism services? Never 05/12/2023 Do you belong to any clubs o r organizations such as mandaen groups, unions, fraternal or athletic groups, or [...] Recorded Patient Health Questionnaire-2 Score 0 05/21/2023 [facility] - Occupational Stress [...] Author Status No 05/12/2023 10:03 PM Tyrel Gerard RN Active * Are you blind or do you have serious difficulty seeing, even when wearing glasses? Answer Date of Assessment Author Status No 05/12/2023 10:03 PM Tyrel Gerard RN Active * Do you have serious difficulty walking or climbing stairs? Answer Date of Assessment Author Status Yes 05/12/2023 10:03 PM Tyrel Gerard RN Active * Do you have difficulty dressing or bathing? Answer Date of Assessment Author Status No 05/12/2023 10:03 PM Tyrel Gerard, RN Active * Because of a physical, mental, or emotional condition, do you have difficulty doing errands alone such as visiting a doctor's office or shopping? Answer Date of Assessment Author Status Yes 05/12/2023 10:03 PM CDT Juancho, Tyrel C, RN Active documented as of this encounter Mental Status * Because of a physical, mental, or emotional condition, do you have serious difficulty concentrating, remembering, or making decisions? Answer Entry Date Author Status No 05/12/2023 10:03 PM CDT Tyrel Dawkins, RN Active documented in this encounter Plan of Treatment Upcoming Encounters Date Type Department Care Team (Late st Contact Info) Description 03/31/2024 8:40 AM PROVIDER RELATIONS REP Office Visit [facility] [address] [phone] Sandi Alfaro APNP [address] [place] [phone] 05/05/2024 8:00 AM PROVIDER RELATIONS REP Office Visit [facility] Internal [address] [phone] Sandi Alfaro APNP [address] [place] [phone] documented as of this encounter Visit Diagnoses Not on filedocumented in this encounter Additional Health Concerns Assessment Noted Time PHQ-9 Depression Total Score: 0 05/21/19 24 11:21 AM CDT documented as of this encounter Care Teams Linseed Cake Trimmer Relationship Specialty Start Date End Date Sandi Alfaro APNP Family & Internal [address] [address] PCP - General [employer]ACT[employer] EDUCATION FINANCE PROCESSOR 04/28/17 Cheryl Huston, general forecaster (Ambulatory) REGISTERED NURSE 03/23/19 documented as of this encounter
--- OUTSIDE RECORDS SUMMARY | 2024-03-25 02:37 | XMS_ITS ---
Author Organization [facility] Address [address] [place], [place] [id number] Care Team Providers Care Geospatial Engineer Name Role Phone PIETER WALSH Unavailable [phone] Sandi Alfaro Unavailable Unavailable REASON FOR VISIT Patient presents for at-risk foot care . The patient has painful toenails that are causing difficulty with ambulation and shoegear. The onset is gradual. The patient has diabetes mellitus Medications Medication SIG (Take, Route, Frequency, Duration) Notes Start Date End Date Status betamethasone 0.5 MG/ML / clotrimazole 10 MG/ML Topical Cream [Lotrisone] CUTANEOUS betamethasone 0.5 MG/ML / clotrimazole 10 MG/ML Topical Cream [Lotrisone]Original Medicationbetamethasone 0.5 MG/ML / clotrimazole 10 MG/ML Topical Cream [Lotrisone] *Reorder from [employer] for eRx and Interacti 7 Active betamethasone 0.5 MG/ML / clotrimazole 10 MG/ML Topical Cream CUTANEOUS betamethasone 0.5 MG/ML / clotrimazole 10 MG/ML Topical CreamOriginal Medicationbetamethasone 0.5 MG/ML / clotrimazole 10 MG/ML Topical Cream *Reorder from [employer] for eRx and Interaction Alerts* 7 Active clobetasol propionate 0.0005 MG/MG Topical Ointment [Temovate] CUTANEOUS clobetasol propionate 0.0005 MG/MG Topical Ointment [Temovate]Original Medicationclobetasol propionate 0.0005 MG/MG Topical Ointment [Temovate] *Reorder from [employer] for eRx and Interaction Alerts* 7 Active clotrimazole 10 MG/ML Topical Cream CUTANEOUS clotrimazole 10 MG/ML Topical CreamOriginal Medicationclotrimazole 10 MG/ML Topical Cream *Reorder from [employer] for eRx and Interaction Alerts* 7 Active Augmented betamethasone 0.5 MG/ML Topical Cream CUTANEOUS Augmented betamethasone 0.5 MG/ML Topical CreamOriginal MedicationAugmented betamethasone 0.5 MG/ML Topical Cream *Reorder from [employer] for eRx and Interaction Alerts* 7 Active Encounters Encounter Location Date Provider Diagnosis [facility] [address] [place], [place] [id number] 01/25/2024 PIETER LATONYAK Tinea unguium B35.1 ; Pain in right toe(s) M79.674 ; Pain in left toe(s) M79.675 ; Atherosclerosis of [place] arteries of extremities with intermittent claudication, bilateral legs I70.213 and Type 2 diabetes mellitus with other circulatory complications E11.59 Assessments Encounter Date Diagnosis (ICD Code) Assessment Notes Treatment Notes Treatment Clinical Notes Section Notes 01/25/2024 Tinea unguium (ICD-10 - B35.1) NAIL DEBRIDEMENT: Nails 1-5 Bilateral were debrided extensively with nail nippers and emery board, reducing length and girth to pink healthy tissue with any subungual debris and necrotic tissue removed 01/25/2024 Pain in right toe(s) (ICD-10 - M79.674) 01/25/2024 Pain in left toe(s) (ICD-10 - M79.675) 01/25/2024 Atherosclerosis of [place] arteries of extremities with intermittent claudication, bilateral legs (ICD-10 - I70.213) 01/25/2024 Type 2 diabetes mellitus with other circulatory complications (ICD-10 - E11.59) Diabetic Foot Care: The patient was educated on diabetes and the lower extremity. The patient was instructed to check his feet daily to report any problems or signs of infection immediately. The patient was provided written information on Diabetic Foot Care as well as the Amputation Prevention Guide. Plan Of Treatment Treatment Notes Assessment Notes Tinea unguium NAIL DEBRIDEMENT: Na ils 1-5 Bilateral were debrided extensively with nail nippers and emery board, reducing length and girth to pink healthy tissue with any subungual debris and necrotic tissue removed Type 2 diabetes mellitus wit h other circulatory complications Diabetic Foot Care: The patient was educated on diabetes and the lower extremity. The patient was instructed to check his feet daily to report any problems or signs of infection immediately. The patient was provided written information on Diabetic Foot Care as well as the Amputation Prevention Guide. Next Appt Details Follow Up: 10 - 12 weeks, Re ason: At-Risk Foot care, sooner if problems develop. Provider Name:PIETER WALSH, 08:10:00 AM, [address], [address], [phone], Progress Notes * KLAUDIA HALEY BDOB:[birth year] (63 yo M)Acc No.[id number]:01/25/2024 Patient:?KLAUDIA HALEY Provider:?Pieter Walsh DPM :1960???Age:63 Y???Sex:Male Ottoniel e:01/25/2024 Address:[facility] Subjective: * Chief Complaints: * ???Patient presents for at-r isk foot care . The patient has painful toenails that are causing difficulty with ambulation and shoegear. The onset is gradual. The patient has diabetes mellitus * HPI: ???HPI:?General care?Patient presents to the office for diabetic foot care. Patient states that their nails are thickened, elongated and painful. Patient states that it is aggravated by shoe gear. Onset is gradual., Patient is taking prescription blood thinners., Date last seen by Dr. Alfaro was 01/2024., Initials mca.? * Medical History:? * Surgical History:? * Hospitalization/Major Diagno stic Procedure:? * Medications:?TakingAugmented betamethasone 0.5 MG/ML Topical Cream CUTANEOUS , Notes to Pharmacist: Augmented betamethasone 0.5 MG/ML Topical CreamOriginal MedicationAugmented betamethasone 0.5 MG/ML Topical Cream *Reorder from [facility] for eRx and Interaction Alerts*betamethasone 0.5 MG/ML / clotrimazole 10 MG/ML Topical Cream CUTANEOUS , Notes to Pharmacist: betamethasone 0.5 MG/ML / clotrimazole 10 MG/ML Topical CreamOriginal Medicationbetamethasone 0.5 MG/ML / clotrimazole 10 MG/ML Topical Cream *Reorder from [facility] for eRx and Interaction Alerts*betamethasone 0.5 MG/ML / clotrimazole 10 MG/ML Topical Cream [Lotrisone] CUTANEOUS , Notes to Pharmacist: betamethasone 0.5 MG/ML / clotrimazole 10 MG/ML Topical Cream [Lotrisone]Original Medicationbetamethasone 0.5 MG/ML / clotrimazole 10 MG/ML Topical Cream [Lotrisone] *Reorder from [facility] for eRx and Interacticlobetasol propionate 0.0005 MG/MG Topical Ointment [Temovate] CUTANEOUS , Notes to Pharmacist: clobetasol propionate 0.0005 MG/MG Topical Ointment [Temovate]Original Medicationclobetasol propionate 0.0005 MG/MG Topical Ointment [Temovate] *Reorder from [facility] for eRx and Interaction Alerts*clotrimazole 10 MG/ML Topical Cream CUTANEOUS , Notes to Pharmacist: clotrimazole 10 MG/ML Topical CreamOriginal Medicationclotrimazole 10 MG/ML Topical Cream *Reorder from [facility] for eRx and Interaction Alerts*Medication List reviewed and reconciled with the patientTaking Augmented betamethasone 0.5 MG/ML Topical Cream CUTANEOUS , Notes to Pharmacist: Augmented betamethasone 0.5 MG/ML Topical CreamOriginal MedicationAugmented betamethasone 0.5 MG/ML Topical Cream *Reorder from [facility] for eRx and Interaction Alerts*Taking betamethasone 0.5 MG/ML / clotrimazole 10 MG/ML Topical Cream CUTANEOUS , Notes to Pharmacist: betamethasone 0.5 MG/ML / clotrimazole 10 MG/ML Topical CreamOriginal Medicationbetamethasone 0.5 MG/ML / clotrimazole 10 MG/ML Topical Cream *Reorder from [employer] for eRx and Interaction Alerts*Taking betamethasone 0.5 MG/ML / clotrimazole 10 MG/ML Topical Cream [Lotrisone] CUTANEOUS , Notes to Pharmacist: betamethasone 0.5 MG/ML / clotrimazole 10 MG/ML Topical Cream [Lotrisone]Original Medicationbetamethasone 0.5 MG/ML / clotrimazole 10 MG/ML Topical Cream [Lotrisone] *Reorder from [employer] for eRx and InteractiTaking clobetasol propionate 0.0005 MG/MG Topical Ointment [Temovate] CUTANEOUS , Notes to Pharmacist: clobetasol propionate 0.0005 MG/MG Topical Ointment [Temovate]Original Medicationclobetasol propionate 0.0005 MG/MG Topical Ointment [Temovate] *Reorder from [employer] for eRx and Interaction Alerts*Taking clotrimazole 10 MG/ML Topical Cream CUTANEOUS , Notes to Pharmacist: clotrimazole 10 MG/ML Topical CreamOriginal Medicationclotrimazole 10 MG/ML Topical Cream *Reorder from [employer] for eRx and Interaction Alerts*Medication List reviewed and reconciled with the patient Objective: * Vitals:? * Examination: ???Physical Examination: ?General appearance:?Alert, pleasant, well-nourished and in no acute distress.?Dermatologic: ?Skin findings:?Skin is thin, atrophic and lacking pedal hair.?Nail pathology:?Nails 1, 2, 3, 4, and 5 bilateral are elongated, thick, discolored, and dystrophic with subungual debris. They are painful to palpation.?Vascular: ?Dorsalis pedis pulse:?1/4?bilateral.?Posterior tibial pulse:?0/4 bilateral.?Capillary refill:?greater than 3 seconds.?Edema:?No edema bilateral.?Neurologic: ?Gross sensation?Grossly intact to light touch. There is negative Tinel's sign.?Musculoskeletal: ?Muscle Strength?Muscle strength is 5/5 in regards to dorsiflexion, plantarflexion, inversion, and eversion in bilateral lower extremities.? Assessment: * Assessment: 1.?Tinea unguium - B35.1 (Pr imary)???2.?Pain in right toe(s) - M79.674???3.?Pain in left toe(s) - M79.675???4.?Atherosclerosis of [place] arteries of extremities with intermittent claudication, bilateral legs - I70.213???5.?Type 2 diabetes mellitus with other circulatory complications - E11.59??? Plan: * Treatment: 2.?Type 2 diabetes mellitus with other circulatory complications? Notes: Diabetic Foot Care: The patient was educated on diabetes and the lower extremity. The patient was instructed to check his feet daily to report any problems or signs of infection immediately. The patient was provided written information on Diabetic Foot Care as well as the Amputation Prevention Guide. ?? * Procedure Codes:?91999 DEBRI DE NAIL, 6 OR MORE, Modifiers: Q8 * Follow Up:?10 - 12 weeks (Re ason: At-Risk Foot care, sooner if problems develop.) * Billing Information: * Visit Code:? * Procedure Codes:? 53031 DEBRIDE NAIL, 6 OR MORE. Modifiers: Q8 * TH TECH Sign off status: Completed true * Provider:?Pieter Walsh DPM Date:?01/25/20 24 Generated for Michelle chi/Danielle/Jeremyitting on:?03/25/2024 02:36 AM HEALTH TECH History and Physical Notes * HPI (History of Present Illness) Category Sub-Category Detail Notes Category Not es HPI General care Patient presents to the office for diabetic foot care. Patient states that their nails are thickened, elongated and painful. Patient states that it is aggravated by shoe gear. Onset is gradual., Patient is taking prescription blood thinners., Date last seen by Dr. Alfaro was 01/2024., Initials mca Examination Category Sub-Category Detail Notes Category Not es Dermatologic Skin findings: Skin is thin, at rophic and lacking pedal hair Nail pathology: Nails 1, 2, 3, 4, an d 5 bilateral are elongated, thick, discolored, and dystrophic with subungual debris. They are painful to palpation Neurologic Gross sensation Grossly intact t o light touch. There is negative Tinel's sign Vascular Dorsalis pedis pulse: 1/4 bilateral Edema: No edema bilateral Capillary refill: greater than 3 secon ds Posterior tibial pulse: 0/4 bilateral Physical Examination General appearance: Alert, pleasant, well-nourished and in no acute distress Musculoskeletal Muscle Strength Muscle strength is 5/5 in regards to dorsiflexion, plantarflexion, inversion, and eversion in bilateral lower extremities
--- OUTSIDE RECORDS SUMMARY | 2024-03-25 02:37 | XMS_ITS ---
Author Organization [facility] Address [address] [place], [place] [id number] Care Team Providers Care Computer Repairer Name Role Phone PIETER WALSH Unavailable [phone] Sandi Alfaro Unavailable Unavailable REASON FOR VISIT Patient presents for at-risk foot care . The patient has painful toenails that are causing difficulty with ambulation and shoegear. The onset is gradual. The patient has diabetes mellitus Medications Medication SIG (Take, Route, Frequency, Duration) Notes Start Date End Date Status clobetasol propionate 0.0005 MG/MG Topical Ointment [Temovate] CUTANEOUS clobetasol propionate 0.0005 MG/MG Topical Ointment [Temovate]Original Medicationclobetasol propionate 0.0005 MG/MG Topical Ointment [Temovate] *Reorder from [employer] for eRx and Interaction Alerts* 7 Active clotrimazole 10 MG/ML Topical Cream CUTANEOUS clotrimazole 10 MG/ML Topical CreamOriginal Medicationclotrimazole 10 MG/ML Topical Cream *Reorder from [employer] for eRx and Interaction Alerts* 7 Active betamethasone 0.5 MG/ML / clotrimazole 10 MG/ML Topical Cream [Lotrisone] CUTANEOUS betamethasone 0.5 MG/ML / clotrimazole 10 MG/ML Topical Cream [Lotrisone]Original Medicationbetamethasone 0.5 MG/ML / clotrimazole 10 MG/ML Topical Cream [Lotrisone] *Reorder from [employer] for eRx and Interacti 7 Active Augmented betamethasone 0.5 MG/ML Topical Cream CUTANEOUS Augmented betamethasone 0.5 MG/ML Topical CreamOriginal MedicationAugmented betamethasone 0.5 MG/ML Topical Cream *Reorder from [facility] for eRx and Interaction Alerts* 7 Active betamethasone 0.5 MG/ML / clotrimazole 10 MG/ML Topical Cream CUTANEOUS betamethasone 0.5 MG/ML / clotrimazole 10 MG/ML Topical CreamOriginal Medicationbetamethasone 0.5 MG/ML / clotrimazole 10 MG/ML Topical Cream *[facility]* 7 Active Encounters Encounter Location Date Provider Diagnosis [facility] [address] [place], [place] [id number] 11/09/2023 PIETERKELLEY WALSH Tinea unguium B35.1 ; Pain in right toe(s) M79.674 ; Pain in left toe(s) M79.675 ; Atherosclerosis of [place] arteries of extremities with intermittent claudication, bilateral legs I70.213 and Type 2 diabetes mellitus with other circulatory complications E11.59 Assessments Encounter Date Diagnosis (ICD Code) Assessment Notes Treatment Notes Treatment Clinical Notes Section Notes 11/09/2023 Tinea unguium (ICD-10 - B35.1) NAIL DEBRIDEMENT: Nails 1-5 Bilateral were debrided extensively with nail nippers and emery board, reducing length and girth to pink healthy tissue with any subungual debris and necrotic tissue removed 11/09/2023 Pain in right toe(s) (ICD-10 - M79.674) 11/09/2023 Pain in left toe(s) (ICD-10 - M79.675) 11/09/2023 Atherosclerosis of [place] arteries of extremities with intermittent claudication, bilateral legs (ICD-10 - I70.213) 11/09/2023 Type 2 diabetes mellitus with other circulatory [...] problems develop. Provider Name:PIETER WALSH, 08:10:00 AM, [address], [address], [id number], Progress Notes * KLAUDIA HALEY BDOB:[birth year] (63 yo M)Acc No.[id number]:11/09/2023 Patient:?KLAUDIA HALEY Provider:?Pieter Walsh DPM :1960???Age:63 Y???Sex:Male Ottoniel e:11/09/2023 Address:[id number] Subjective: * Chief Complaints: * ???1. Patient presents for a t-risk foot care . The patient has painful toenails that are causing difficulty with ambulation and shoegear. The onset is gradual. The patient has diabetes mellitus. * HPI: ???HPI:?General care?Patient presents to the office for diabetic foot care. Patient states that their nails are thickened, elongated and painful. Patient states that it is aggravated by shoe gear. Onset is gradual., Patient is taking prescription blood thinners., Date last seen by Dr. Alfaro was 08/2023., Initials [facility] , Patient presents to the office for diabetic foot care. Patient states that their nails are thickened, elongated and painful. Patient states that it is aggravated by shoe gear. Onset is gradual., Patient denies taking blood thinners., Date last seen by Dr. Yanez was July 2023., Initials JR.? * ROS:?General / Constitutional:?Patient denies?chills, fever, weakness, night sweats.?Musculoskeletal:?Patient denies?childhood foot problems, weakness.?Patient complains of?broken foot bone.?Peripheral Vascular:?Patient denies?ulceration of feet, cold extremities.?Skin:?Patient denies?ulcerations, discoloration.?Neurologic:?Patient denies?balance difficulty, confusion, difficulty speaking, dizziness.? * Medical History:? * Family History:?Father: PRN - Father: :: Hypertension,,known absent , :: Congestive heart failure,,known absent , :: Heart Disease < 55 yrs,,known absent .?Mother: PRN - Mother: :: Arthritis,,known absent , :: Hypertension,,known absent , :: Diabetes,,known absent .?Sister: SIB - Sister: :: Heart Disease < 55 yrs,,known absent .? * Social History:?Migrated Social History:?Migrated Social History: History of tobacco use : Current every day smoker , Smoking Status : Current every day smoker. * Medications:?Taking Augmente d betamethasone 0.5 MG/ML Topical Cream CUTANEOUS , Notes to Pharmacist: Augmented betamethasone 0.5 MG/ML Topical CreamOriginal MedicationAugmented betamethasone 0.5 MG/ML Topical Cream *Reorder from [employer] for eRx and Interaction Alerts*, Taking betamethasone 0.5 MG/ML / clotrimazole 10 MG/ML Topical Cream CUTANEOUS , Notes to Pharmacist: betamethasone 0.5 MG/ML / clotrimazole 10 MG/ML Topical CreamOriginal Medicationbetamethasone 0.5 MG/ML / clotrimazole 10 MG/ML Topical Cream *Reorder from [employer] for eRx and Interaction Alerts*, Taking betamethasone 0.5 MG/ML / clotrimazole 10 MG/ML Topical Cream [Lotrisone] CUTANEOUS , Notes to Pharmacist: betamethasone 0.5 MG/ML / clotrimazole 10 MG/ML Topical Cream [Lotrisone]Original Medicationbetamethasone 0.5 MG/ML / clotrimazole 10 MG/ML Topical Cream [Lotrisone] *Reorder from [facility] for eRx and Interacti, Taking clobetasol propionate 0.0005 MG/MG Topical Ointment [Temovate] CUTANEOUS , Notes to Pharmacist: clobetasol propionate 0.0005 MG/MG Topical Ointment [Temovate]Original Medicationclobetasol propionate 0.0005 MG/MG Topical Ointment [Temovate] *Reorder from [facility] for eRx and Interaction Alerts*, Taking clotrimazole 10 MG/ML Topical Cream CUTANEOUS , Notes to Pharmacist: clotrimazole 10 MG/ML Topical CreamOriginal Medicationclotrimazole 10 MG/ML Topical Cream *Reorder from [facility] for eRx and Interaction Alerts* Objective: * Examination: ???Physical Examination: ?General appearance:?Alert, pleasant, [...] * Assessment: 1.?Tinea unguium - B35.1 (Pr imary)?2.?Pain in right toe(s) - M79.674?3.?Pain in left toe(s) - M79.675?4.?Atherosclerosis of [place] arteries of extremities with intermittent claudication, bilateral legs - I70.213?5.?Type 2 diabetes mellitus with other circulatory complications - E11.59? Plan: * Treatment: 2.?Type 2 diabetes mellitus with other circulatory complications? Notes: Diabetic Foot Care: The patient was educated on diabetes and the lower extremity. The patient was instructed to check his feet daily to report any problems or signs of infection immediately. The patient was provided written information on Diabetic Foot Care as well as the Amputation Prevention Guide. ?? * Procedure Codes:?38177 DEBRI DE NAIL, 6 OR MORE, Modifiers: Q8 * Follow Up:?10 - 12 weeks (Re ason: At-Risk Foot care, sooner if problems develop.) * Billing Information: * Visit Code:? * Procedure Codes:? 40885 DEBRIDE NAIL, 6 OR MORE. 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 Alfaro was 08/2023., Initials [facility] , Patient presents to the office for diabetic foot care. Patient states that their nails are thickened, elongated and painful. Patient states that it is aggravated by shoe gear. Onset is gradual., Patient denies taking blood thinners., Date last seen by Dr. Yanez was July 2023., Initials JR Examination Category Sub-Category Detail Notes Category Not [...]
--- OUTSIDE RECORDS SUMMARY | 2024-03-25 02:37 | XMS_ITS | Patient Health Record ---
Author Organization [facility] Address [address] [place], [place] [id number] Care Team Providers Care Podiatry Assistant Name Role Phone PIETER WALSH Unavailable [phone] Sandi Alfaro Unavailable Unavailable Allergies No Known Allergies Reason For Referral No Information Medications Medication SIG (Take, Route, Frequency, Duration) Notes Start Date End Date Status betamethasone 0.5 MG/ML / clotrimazole 10 MG/ML Topical Cream [Lotrisone] CUTANEOUS betamethasone 0.5 MG/ML / clotrimazole 10 MG/ML Topical Cream [Lotrisone]Original Medicationbetamethasone 0.5 MG/ML / clotrimazole 10 MG/ML Topical Cream [Lotrisone] *Reorder from [employer] for eRx and Interacti 7 Active betamethasone 0.5 MG/ML / clotrimazole 10 MG/ML Topical Cream CUTANEOUS betamethasone 0.5 MG/ML / clotrimazole 10 MG/ML Topical CreamOriginal Medicationbetamethasone 0.5 MG/ML / clotrimazole 10 MG/ML Topical Cream *Reorder from [employer] for eRx and Interaction Alerts* 7 Active clobetasol propionate 0.0005 MG/MG Topical Ointment [Temovate] CUTANEOUS clobetasol propionate 0.0005 MG/MG Topical Ointment [Temovate]Original Medicationclobetasol propionate 0.0005 MG/MG Topical Ointment [Temovate] *Reorder from [employer] for eRx and Interaction Alerts* 7 Active clotrimazole 10 MG/ML Topical Cream CUTANEOUS clotrimazole 10 MG/ML Topical CreamOriginal Medicationclotrimazole 10 MG/ML Topical Cream *Reorder from [employer] for eRx and Interaction Alerts* 7 Active Augmented betamethasone 0.5 MG/ML Topical Cream CUTANEOUS Augmented betamethasone 0.5 MG/ML Topical CreamOriginal MedicationAugmented betamethasone 0.5 MG/ML Topical Cream *Reorder from [facility] for eRx and Interaction Alerts* 7 Active Immunizations Vaccine Route Administration Date Status Comme nts Influenza, live, intranasal Unknown 01/29/2023 Administ ered Vital Signs Height-cm 182.88 cm 06/01/2023 Weight-kg 149.69 kg 06/01/2023 Height 72.00 in 06/01/2023 Weight 330 lbs 06/01/2023 BMI 44.75 kg/m2 06/01/2023 Encounters Encounter Location Date Provider Diagnosis [facility] [address] [place] [id number] 06/01/2023 PIETER SNOOK Tinea unguium B35.1 ; Pain in right toe(s) M79.674 ; Pain in left toe(s) M79.675 ; Atherosclerosis of [place] arteries of extremities with intermittent claudication, bilateral legs I70.213 and Type 2 diabetes mellitus with other circulatory complications E11.59 [facility] [address] [place] [id number] 08/24/2023 PIETER SNOOK Tinea unguium B35.1 ; Pain in right toe(s) M79.674 ; Pain in left toe(s) M79.675 ; Atherosclerosis of [place] arteries of extremities with intermittent claudication, bilateral legs I70.213 and Type 2 diabetes mellitus with other circulatory complications E11.59 [facility] [address] [place], [place] [id number] 08/31/2023 PIETER SNOOK Nondisplaced unspeci fied fracture of unspecified lesser toe(s), initial encounter for closed fracture S92.506A and Pain in left foot M79.672 [facility] [address] [place] [id number] 09/14/2023 PIETER SNOOK Nondisplaced unspeci fied fracture of right lesser toe(s), subsequent encounter for fracture with routine healing S92.504D and Pain in left toe(s) M79.675 [facility] [place] [address] [place] [id number] 11/09/2023 PIETER SNOOK Tinea unguium B35.1 ; Pain in right toe(s) M79.674 ; Pain in left toe(s) M79.675 ; Atherosclerosis of [place] arteries of extremities with intermittent claudication, bilateral legs I70.213 and Type 2 diabetes mellitus with other circulatory complications E11.59 [facility] [place] [address] [place] [id number] 01/25/2024 PIETER SNOOK Tinea unguium B35.1 ; Pain in right toe(s) M79.674 ; Pain in left toe(s) M79.675 ; Atherosclerosis of [place] arteries of extremities with intermittent claudication, bilateral legs I70.213 and Type 2 diabetes mellitus with other circulatory complications E11.59 Assessments Encounter Date Diagnosis (ICD Code) Assessment Notes Treatment Notes Treatment Clinical Notes Section Notes 06/01/2023 Tinea unguium (ICD-10 - B35.1) NAIL DEBRIDEMENT: Nails 1-5 Bilateral were debrided extensively with nail nippers and emery board, reducing length and girth to pink healthy tissue with any subungual debris and necrotic tissue removed 06/01/2023 Pain in right toe(s) (ICD-10 - M79.674) 08/24/2023 Tinea unguium (ICD-10 - B35.1) NAIL DEBRIDEMENT: Nails 1-5 Bilateral were debrided extensively with nail nippers and emery board, reducing length and girth to pink healthy tissue with any subungual debris and necrotic tissue removed 08/24/2023 Pain in right toe(s) (ICD-10 - M79.674) 08/31/2023 Pain in left foot (ICD-10 - M79.672) 08/31/2023 Nondisplaced unspecified fracture of unspecified lesser toe(s), initial encounter for closed fracture (ICD-10 - S92.506A) 09/14/2023 Pain in left toe(s) (ICD-10 - M79.675) 09/14/2023 Nondisplaced unspecified fracture of right lesser toe(s), subsequent encounter for fracture with routine healing (ICD-10 - S92.504D) 11/09/2023 Tinea unguium (ICD-10 - B35.1) NAIL DEBRIDEMENT: Nails 1-5 Bilateral were debrided extensively with nail nippers and emery board, reducing length and girth to pink healthy tissue with any subungual debris and necrotic tissue removed 01/25/2024 Tinea unguium (ICD-10 - B35.1) NAIL DEBRIDEMENT: Nails 1-5 Bilateral were debrided extensively with nail nippers and emery board, reducing length and girth to pink healthy tissue with any subungual debris and necrotic tissue removed 01/25/2024 Pain in right toe(s) (ICD-10 - M79.674) 11/09/2023 Pain in right toe(s) (ICD-10 - M79.674) 08/24/2023 Pain in left toe(s) (ICD-10 - M79.675) 06/01/2023 Pain in left toe(s) (ICD-10 - M79.675) 06/01/2023 Atherosclerosis of [place] arteries of extremities with intermittent claudication, bilateral legs (ICD-10 - I70.213) 11/09/2023 Pain in left toe(s) (ICD-10 - M79.675) 08/24/2023 Atherosclerosis of [place] arteries of extremities with intermittent claudication, bilateral legs (ICD-10 - I70.213) 01/25/2024 Pain in left toe(s) (ICD-10 - M79.675) 01/25/2024 Atherosclerosis of [place] arteries of extremities with intermittent claudication, bilateral legs (ICD-10 - I70.213) 11/09/2023 Atherosclerosis of [place] arteries of extremities with intermittent claudication, bilateral legs (ICD-10 - I70.213) 08/24/2023 Type 2 diabetes mellitus with other circulatory complications (ICD-10 - E11.59) Diabetic Foot Care: The patient was educated on diabetes and the lower extremity. The patient was instructed to check his feet daily to report any problems or signs of infection immediately. The patient was provided written information on Diabetic Foot Care as well as the Amputation Prevention Guide. 06/01/2023 Type 2 diabetes mellitus with other circulatory complications (ICD-10 - E11.59) Diabetic Foot Care: The patient was educated on diabetes and the lower extremity. The patient was instructed to check his feet daily to report any problems or signs of infection immediately. The patient was provided written information on Diabetic Foot Care as well as the Amputation Prevention Guide. 11/09/2023 Type 2 diabetes mellitus with other circulatory complications (ICD-10 - E11.59) Diabetic Foot Care: The patient was educated on diabetes and the lower extremity. The patient was instructed to check his feet daily to report any problems or signs of infection immediately. The patient was provided written information on Diabetic Foot Care as well as the Amputation Prevention Guide. 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 The patient was instructed to check his feet daily to report any problems or signs of infection immediately. The patient was provided written information on Diabetic Foot Care as well as the Amputation Prevention Guide. 08/31/2023 Other Fracture Care: I discussed the nature and etiology of the injury to the patient and answered all questions. I discussed rest, immobilization, and time frame for healing. I explained that lack of compliance can lead to delayed healing or nonunion. Continue surgical shoe 09/14/2023 Other Fracture Resolved The fracture has resolved. I advised the patient to continue to monitor this area for pain or swelling. I also advised the patient to avoid bare feet or any high impact activities until it is done healing. The patient understands to contact the office if any signs of symptoms return Plan Of Treatment Next Appt Details Provider Name:PIETER WALSH, 08:10:00 AM, [address], [place], [place], [id number], Insurance Providers Payer Name Payer Address Payer Phone Subscriber Number Group Number Insured Name Patient Relationship to Insured Coverage Start Date Coverage End Date Medicare Part B [facility] [address] [place] [id number] KLAUDIA HALEY Self - patient is the insured
--- OUTSIDE RECORDS SUMMARY | 2024-03-25 02:37 | XMS_ITS ---
Author Organization [facility] Address [address] [place], [place] [address] Care Team Providers Care Telesales Representative Name Role Phone PIETER WALSH Unavailable [phone] Sandi Alfaro Unavailable Unavailable Allergies No Known Allergies REASON FOR VISIT The patient only as some minor aches to his left 4th and 5th toe. He is not having any real issues Medications Medication SIG (Take, Route, Frequency, Duration) Notes Start Date End Date Status Augmented betamethasone 0.5 MG/ML Topical Cream CUTANEOUS Augmented betamethasone 0.5 MG/ML Topical CreamOriginal MedicationAugmented betamethasone 0.5 MG/ML Topical Cream *Reorder from [employer] for eRx and Interaction Alerts* 7 Active betamethasone 0.5 MG/ML / clotrimazole 10 MG/ML Topical Cream CUTANEOUS betamethasone 0.5 MG/ML / clotrimazole 10 MG/ML Topical CreamOriginal Medicationbetamethasone 0.5 MG/ML / clotrimazole 10 MG/ML Topical Cream *Reorder from [employer] for eRx and Interaction Alerts* 7 Active betamethasone 0.5 MG/ML / clotrimazole 10 MG/ML Topical Cream [Lotrisone] CUTANEOUS betamethasone 0.5 MG/ML / clotrimazole 10 MG/ML Topical Cream [Lotrisone]Original Medicationbetamethasone 0.5 MG/ML / clotrimazole 10 MG/ML Topical Cream [Lotrisone] *Reorder from [employer] for eRx and Interacti 7 Active clobetasol propionate 0.0005 MG/MG Topical Ointment [Temovate] CUTANEOUS clobetasol propionate 0.0005 MG/MG Topical Ointment [Temovate]Original Medicationclobetasol propionate 0.0005 MG/MG Topical Ointment [Temovate] *Reorder from [employer] for eRx and Interaction Alerts* 7 Active clotrimazole 10 MG/ML Topical Cream CUTANEOUS clotrimazole 10 MG/ML Topical CreamOriginal Medicationclotrimazole 10 MG/ML Topical Cream *Reorder from [employer] for eRx and Interaction Alerts* 7 Active Encounters Encounter Location Date Provider Diagnosis [facility] [address] [place], [place] [id number] 09/14/2023 PIETER WALSH Nondisplaced unspecified fracture of right lesser toe(s), subsequent encounter for fracture with routine healing S92.504D and Pain in left toe(s) M79.675 Assessments Encounter Date Diagnosis (ICD Code) Assessment Notes Treatment Notes Treatment Clinical Notes Section Notes 09/14/2023 Nondisplaced unspecified fracture of right lesser toe(s), subsequent encounter for fracture with routine healing (ICD-10 - S92.504D) 09/14/2023 Pain in left toe(s) (ICD-10 - M79.675) 09/14/2023 Other Fracture Resolved The fracture has resolved. I advised the patient to continue to monitor this area for pain or swelling. I also advised the patient to avoid bare feet or any high impact activities until it is done healing. The patient understands to contact the office if any signs of symptoms return Plan Of Treatment Treatment Notes Assessment Notes Other Fracture Resolved The fracture has resolved. I advised the patient to continue to monitor this area for pain or swelling. I also advised the patient to avoid bare feet or any high impact activities until it is done healing. The patient understands to contact the office if any signs of symptoms return Next Appt Details Follow Up: prn, Reason: Provider Name:PIETER WALSH, 08:10:00 AM, [address], [place], [place], [id number], Progress Notes * KLAUDIA HALEY BDOB:[birth year] (63 yo M)Acc No.[id number]:09/14/2023 Patient:?KLAUDIA HALEY Provider:?Pieter Walsh DPM :1960???Age:63 Y???Sex:Male Ottoniel e:09/14/2023 Address:[address] [place] [address] , [id number] Subjective: * Chief Complaints: * ???1. The patient only as so me minor aches to his left 4th and 5th toe. He is not having any real issues. * HPI: ???HPI:?Follow Up Visit?Patient presents for follow-up visit for fracture check of the 4th and 5th toe of the right foot. Patient states their problem is, improving. Patient states he has some soreness still, but only when toes are bumped. Patient has had no swelling or bruising since. , MA: LB.? * ROS:?General / Constitutional:?Patient denies?chills, fever, weakness, [...] betamethasone 0.5 MG/ML Topical Cream *[facility] for eRx and Interaction Alerts*, Taking betamethasone 0.5 MG/ML / clotrimazole 10 MG/ML Topical Cream CUTANEOUS , Notes to Pharmacist: betamethasone 0.5 MG/ML / clotrimazole 10 MG/ML Topical CreamOriginal Medicationbetamethasone 0.5 MG/ML / clotrimazole 10 MG/ML Topical Cream *[facility] from [facility] for eRx and Interaction Alerts*, Taking betamethasone 0.5 MG/ML / clotrimazole 10 MG/ML Topical Cream [Lotrisone] CUTANEOUS , Notes to Pharmacist: betamethasone 0.5 MG/ML / clotrimazole 10 MG/ML Topical Cream [Lotrisone]Original Medicationbetamethasone 0.5 MG/ML / clotrimazole 10 MG/ML Topical Cream [Lotrisone] *Reorder from [employer] for eRx and Interacti, Taking clobetasol propionate 0.0005 MG/MG Topical Ointment [Temovate] CUTANEOUS , Notes to Pharmacist: clobetasol propionate 0.0005 MG/MG Topical Ointment [Temovate]Original Medicationclobetasol propionate 0.0005 MG/MG Topical Ointment [Temovate] *Reorder from [facility] for eRx and Interaction Alerts*, Taking clotrimazole 10 MG/ML Topical Cream CUTANEOUS , Notes to Pharmacist: clotrimazole 10 MG/ML Topical CreamOriginal Medicationclotrimazole 10 MG/ML Topical Cream *Reorder from [employer] for eRx and Interaction Alerts* * Allergies:?N.K.D.A. Objective: * Examination: ???Constitutional: ?Constitutional?The patient is awake, alert, well developed, well groomed and well nourished.?Dermatologic: ?Skin findings:?Skin is thin, atrophic and lacking pedal hair.? No ecchymosis, no breaks in the skin.?Nail pathology:?Nails 1-5 bilateral are elongated, thick, discolored, and dystrophic with subungual debris. They are painful to palpation.?Vascular: ?Dorsalis pedis pulse:?0/4, bilateral.?Posterior tibial pulse:?1/4, bilaterally.?Capillary refill:?greater than 3 seconds.?Edema:?No edema, bilateral.?Neurologic: ?Gross sensation?Gross sensation is intact to light touch.?Musculoskeletal: ?Muscle Strength?Muscle strength is 5/5 in regards to dorsiflexion, plantarflexion, inversion, and eversion in bilateral lower extremities.?Pain on palpation?There is pain on palpation of the left 4th and 5th digits.?Radiographs: ?Left Foot?The fractures are well healed and no longer visible on xrays.? Assessment: * Assessment: 1.?Nondisplaced unspecified fracture of right lesser toe(s), subsequent encounter for fracture with routine healing - S92.504D (Primary)?2.?Pain in left toe(s) - M79.675? Plan: * Treatment: * Procedure Codes:?78386 X-RAY EXAM OF FOOT, Modifiers: LT * Follow Up:?prn * Billing Information: * Visit Code:? 18478 Office Visit, Est Pt., Level 3. * Procedure Codes:? 10322 X-RAY EXAM OF FOOT. Modifiers: LT * Sign off status: Completed true * Provider:?Pieter Walsh DPM Date:?09/14/19 24 Generated for Devyni arti/Danielle/eTransmitting on:?03/25/2024 02:36 AM NUT STEAMER History and Physical Notes * HPI (History of Present Illness) Category Sub-Category Detail Notes Category Not es HPI Follow Up Visit Patient presents for follow-up visit for fracture check of the 4th and 5th toe of the right foot. Patient states their problem is, improving. Patient states he has some soreness still, but only when toes are bumped. Patient has had no swelling or bruising since. , MA: LB Examination Category Sub-Category Detail Notes Category Not es Dermatologic Skin findings: Skin is thin, at rophic and lacking pedal hair. No ecchymosis, no breaks in the skin Nail pathology: Nails 1-5 bilateral are elongated, thick, discolored, and dystrophic with subungual debris. They are painful to palpation Neurologic Gross sensation Gross sensation is intact to light touch Vascular Dorsalis pedis pulse: 0/4, bilateral Edema: No edema, bilateral Capillary refill: greater than 3 secon ds Posterior tibial pulse: 1/4, bilaterally Musculoskeletal Muscle Strength Muscle strength is 5/5 in regards to dorsiflexion, plantarflexion, inversion, and eversion in bilateral lower extremities Pain on palpation There is pain on pal pation of the left 4th and 5th digits Constitutional Constitutional The patient is a wake, alert, well developed, well groomed and well nourished Radiographs Left Foot The fractures ar e well healed and no longer visible on xrays
--- OUTSIDE RECORDS SUMMARY | 2024-03-25 03:09 | XMS_ITS | Clinical Summary ---
Author Organization [facility] Address [address] [place] [address] Care Team Providers Care Lan Manager Name Role Phone Sandi Alfaro SEISMIC SURVEY ASSISTANT-FACULTY RESEARCH ASSISTANT Primary Care Provider Source Comments [facility],non-owned Affiliates and Associated Physician Practices is amultiple site organization consisting of ambulatory clinics and hospital sitesin [place], [place], [place] and [place]. This disclosure is being madepursuant to the Care Everywhere program and may not contain all information available regarding this patient. Last updated 17.[facility] Allergies No known active allergies Medications * [...] ve Non-react kendell 05/26/2018 5:12 PM CDT [facility] Comment: Neither HIV-1 p24 Antigen nor HIV-1/HIV-2 Antibodies are detected. ? Blood BLOOD SPECIMEN / Unknown Venipuncture / Unknown 05/26/2018 4:21 PM CDT 05/26/2018 4:26 PM CDT Jim Ann MD LAB - HEMATOLOGY ORD HARSHA Performing Organization Address [facility]/ZIP Co de Phone Number [address] [phone] * HEPATITIS C AB SCREEN RFLX NAAT QUANT (05/26/2018 4:21 PM CDT) Pathologist [facility] Hepatitis C Antibody Non-react kendell Non-reac tive 05/26/2018 5:13 PM CDT [facility] Comment: Hepatitis C Antibody screen indicates [...] LORENZA BULLARD Performing Organization Address [facility]/ZIP Co de Phone Number [address] [phone] from Last 3 Months or Most Recently Relevant to Health Maintenance Advance Directives * Full Code (Latest Code Status on File) Date Activated Date Inactivated Comments 05/26/2018 2:01 PM 05/28/2018 11:56 AM Care Teams Lan Manager Relationship Specialty Start Date End Date Sandi Alfaro, SEISMIC SURVEY ASSISTANT-FACULTY RESEARCH ASSISTANT [address] [place] [address] PCP - General 08/27/21
--- OUTSIDE RECORDS SUMMARY | 2024-03-25 03:09 | XMS_ITS | Referral Summary ---
Author Organization [facility] [address] [place] [address] [address] [place] [address] Care Team Providers Care Information Architect Name Role Phone Sandi Alfaro Primary Care Provider + Encounters Date Type Department Care Team Description 03/24/[address] [facility] Medical [facility] Cardiology [address] [place] [address] [address] [place] [address] Fernando Modi MD Chest Pain 01/18/[address] [facility] Medical [facility] Cardiology [address] [place] [address] [address] [place] [address] ProviderStuart MD 01/18/2024 9:00 AM LENS GRINDER ROUGH Office Visit [facility] Cardiology [address] [place] [address] [address] [place] [address] Fernando Modi MD Coronary artery disease of [place] artery of [place] heart with stable angina pectoris (HCC) (Primary [...] 24 hr tabletIndication s:Coronary artery disease of [place] artery of [place] heart with stable angina pectoris (HCC) TAKE [...] heart failure with p reserved ejection fraction ([facility]) 11/12/2018 Cryptogenic stroke 07/06/2018 Status post placement of implantable loop record er 10/13/2017 Overview (10/13/2017): [employer] Reveal Loop Recorder. Dx; Cryptogenic Stroke. DOI 10/12/[address] Willoughby. [facility] remote monitoring. TIA (transient ischemic attack) 10/06/2017 S/P coronary artery stent placement 12/17/2016 Morbid obesity with BMI of 45.0-49.9, adult ([facility]) 08/13/2016 Mixed anxiety depressive disorder 05/01/2015 Overview (06/07/2016): Anxiety and depression Coronary artery disease of n ative artery of [place] heart with stable angina pectoris 02/20/2015 Overview (06/07/2016): Coronary artery disease involving [place] coronary artery of [place] heart with other form of angina pectoris CVA, old, hemiparesis ([facility]) 02/20/2015 Overview (06/07/2016): CVA, old, hemiparesis Mixed diabetic hyperlipidemi a associated with type 2 diabetes mellitus ([facility]) 02/20/2015 Overview (06/07/2016): DM type 2 [...] on file Legal Sex Male 3:15 AM LENS GRINDER ROUGH Gender Identity Male 09/03/2018 6:22 AM CDT Sexual Orientation Straight 09/03/2018 6: 22 AM CDT Last Filed Vital Signs Vital Sign Reading Time Taken Comments Blood Pressure 132/80 01/18/2024 8:53 AM LENS GRINDER ROUGH Pulse 82 01/18/2024 8:53 AM LENS GRINDER ROUGH Temperature - - Respiratory Rate - - Oxygen Saturation 96% 01/18/2024 8:53 AM LENS GRINDER ROUGH Inhaled Oxygen Concentration - - Weight 137.4 kg (303 lb) 01/18/2024 8:53 AM LENS GRINDER ROUGH Height 182.9 cm (6') 01/18/2024 8:53 AM LENS GRINDER ROUGH Body Mass Index 41.09 01/18/2024 8:53 AM LENS GRINDER ROUGH Plan of Treatment Not on file Procedures [...] Recently Relevant to Health Maintenance Insurance MEDICARE [facility] [employer] MEDICARE [facility] [employer] Care Teams Information Architect Relationship Specialty Start Date End Date Sandi Alfaro PA PCP - General Nurse Practitioner 08/21/17
--- OUTSIDE RECORDS SUMMARY | 2024-03-25 03:09 | XMS_ITS | Encounter Summary ---
Author Organization [facility] Address [address] [place] [address]. [place], [place] [address] [place] [address] Care Team Providers Care Field Reimbursement Manager Name Role Phone Sandi Alfaro Primary Care Provider [phone] Cheryl Huston RN Unavailable Unavailable Reason for Visit * Reason Onset Date Comments Medication Request 03/22/2024 Advice 03/22/2024 Encounter Details Date Type Department Care Team (Late st Contact Info) Description 03/22/2024 Telephone [facility] Medical Group Family & Internal Medicine [facility] [address] [place] [address] Sandi Alfaro APNP [address] [place] [address] Medication Request; Advice Social History Tobacco Use Types Packs/Day Years Used Date Smoking Tobacco: Former Cigarettes 0.3 40 Smokeless Tobacco: Never Comments:currently smoking 1 -2 cigarettes a day Alcohol Use Standard Drinks/Week Comments Yes 0 (1 standard drink = 0.6 oz pur e alcohol) very rarely 6 beers/year [facility] Utilities Answer Date Recorded In the past [...] How often do you attend chur or anabaptist services? Never 05/12/2023 Do you belong to any clubs o r organizations such as episcopalian groups, unions, fraternal or athletic groups, or [...] Recorded Patient Health Questionnaire-2 Score 0 05/21/2023 [facility] of Occupat ionne Health - Occupational Stress Questionnaire Answer Date [...] place to sleep or slept in a long term (including now)? No 05/12/2023 Sex and Gender [...] sent, pt aware. Appt r/s to 03/30. T TESTER * Vivian [place] MA - 03/22/2024 10:20 AM CSTAddended by: VIVIAN ANDERSON on: 03/22/2024 10:20 AM Modules accepted: Orders T TESTER * CRIS Rizo - 03/22/2024 10:05 AM CST Can send over 4 mg of Zofran, one PO TID PRN, #30, no refills Reschedule today's appt T TESTER * Ayanna Jc - 03/22/2024 9:29 AM CST Pt called in stating he woke up 1am with vomiting and diarrhea, states he thinks he has food poisoning. States trying to keep water intake up. Pt asking for something to help with vomiting. Please advise. T TESTER documented in this encounter Plan of Treatment Upcoming Encounters Date Type Department Care Team (Late st Contact Info) Description 03/31/2024 8:40 AM PAINT TESTER Office Visit [facility] Medical Group Family & Internal Medicine [address] [address] Sandi Alfaro APNP [address] [place] [address] 05/05/2024 8:00 AM PAINT TESTER Office Visit [facility] Medical Group Family & Internal Medicine - [place] [address] [place] [address] Sandi Alfaro APNP [address] [place] [address] documented as of this encounter Visit Diagnoses Diagnosis Vertigo Dizziness and giddiness documented in this encounter Additional Health Concerns Assessment Noted Time PHQ-9 Depression Total Score: 0 05/21/19 24 11:21 AM CDT documented as of this encounter Care Teams Field Reimbursement Manager Relationship Specialty Start Date End Date Sandi Alfaro APNP Family & Internal Medicine [address] [address] PCP - General ADVANCED PRACTICE FIRST FRONT VENTILATOR 04/28/17 Cheryl Huston cob sawyer (Ambulatory) REGISTERED NURSE 03/23/19 documented as of this encounter
--- OUTSIDE RECORDS SUMMARY | 2024-03-25 03:09 | XMS_ITS | Referral Summary ---
Author Organization [facility] Address [address] [place] [address] Care Team Providers Care Pantograph Machine Set Up Operator Name Role Phone Sandi Alfaro BANQUET DIRECTOR-ANTENNA INSTALLER Primary Care Provider Source Comments [facility],non-owned Affiliates and Associated Physician Practices is amultiple site organization consisting of ambulatory clinics and hospital sitesin [place], [place], [place] and [place]. This disclosure is being madepursuant to the Care Everywhere program and may not contain all information available regarding this patient. Last updated 17.[facility] Allergies No known active allergies Medications * [...] ve Non-react kendell 05/26/2018 5:12 PM CDT [facility] Comment: Neither HIV-1 p24 Antigen nor HIV-1/HIV-2 Antibodies are detected. ? Blood BLOOD SPECIMEN / Unknown Venipuncture / Unknown 05/26/2018 4:21 PM CDT 05/26/2018 4:26 PM CDT Jim Ann MD LAB - HEMATOLOGY ORD ERABLES [place] [id number] [address] [phone] * HEPATITIS C AB SCREEN RFLX NAAT QUANT (05/26/2018 4:21 PM CDT) Hepatitis C Antibody Non-react kendell Non-reac tive 05/26/2018 5:13 PM CDT [facility] Comment: Hepatitis C Antibody screen indicates [...] Ann MD LAB - CHEMISTRY LORENZA BULLARD [address] [phone] from Last 3 Months or Most Recently Relevant to Health Maintenance Advance Directives * Full Code (Latest Code Status on File) Date Activated Date Inactivated Comments 05/26/2018 2:01 PM 05/28/2018 11:56 AM Care Teams Pantograph Machine Set Up Operator Relationship Specialty Start Date End Date Sandi Alfaro, BANQUET DIRECTOR-ANTENNA INSTALLER [facility] [place] [address] PCP - General 08/27/21
--- OUTSIDE RECORDS SUMMARY | 2024-03-25 03:09 | XMS_ITS | Encounter Summary ---
Author Organization [facility] Address [address] [place] [address]. [place], [place] [address] [place] [address] Care Team Providers Care Make Up Girl Name Role Phone Sandi Alfaro Primary Care Provider [phone] Sandi Alfaro Unavailable [phone] Cheryl Huston RN Unavailable Unavailable Encounter Details Date Type Department Care Team (Latest Contact Info) Description 10/26/2017 Abstract [facility] , Shay Hughes MD Social [...] st Contact Info) Description 03/31/2024 8:40 AM BAG END SEWER Office Visit [facility] Family & Internal Medicine [facility] [address] [place] [address] Sandi Alfaro APNP [address] [place] [address] 05/05/2024 8:00 AM BAG END SEWER Office Visit [facility] Family & Internal Medicine [facility] [address] [place] [address] Sandi Alfaro APNP [address] [place] [address] documented as of this encounter Visit Diagnoses Not on filedocumented in this encounter Additional Health Concerns Infection Onset Date Last Indicated Resolved Time COVID-19 Rule Out 10/24/2019 11/25/2019 11/27/2019 1:56 AM CDT COVID-19 Rule Out 05/03/2020 05/03/2020 05/03/2020 3:25 PM BAG END SEWER COVID-19 Rule Out 05/12/2023 05/12/2023 05/13/2023 12:01 AM CDT Influenza - Seasonal 05/14/2023 05/14/2023 024 12:32 AM CDT documented as of this encounter Care Teams Make Up Girl Relationship Specialty Start Date End Date Sandi Alfaro APNP Family & Internal Medicine [address] [address] PCP - General ADVANCED PRACTICE INTERCELL CONNECTOR PLACER 04/28/17 Sandi Alfaro APNP [facility] [place] [address] PCP - Med Group - MSSP Attributed Provider 03/02/15 03/01/22 Cheryl Huston, pole incisor operator (Ambulatory) REGISTERED NURSE 03/23/19 documented as of this encounter
--- OUTSIDE RECORDS SUMMARY | 2024-03-25 03:09 | XMS_ITS | Clinical Summary ---
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 Dx; Cryptogenic Stroke. DOI 10/12/[address] Willoughby. [facility] remote monitoring. TIA (transient ischemic attack) 10/06/2017 S/P coronary artery stent placement 12/17/2016 Morbid obesity with BMI of 45.0-49.9, adult ([facility]) 08/13/2016 Mixed anxiety depressive disorder 05/01/2015 Overview (06/07/2016): Anxiety and depression Coronary artery disease of n ative artery of grindstone heart with stable angina pectoris 02/20/2015 Overview (06/07/2016): Coronary artery disease involving grindstone coronary artery of grindstone heart with other form of angina pectoris CVA, old, hemiparesis ([facility]) 02/20/2015 Overview (06/07/2016): CVA, old, hemiparesis Mixed diabetic hyperlipidemi a associated with type 2 diabetes mellitus ([facility]) 02/20/2015 Overview (06/07/2016): DM type 2 with diabetic dyslipidemia Hypertensive heart disease with congestive heart failure 02/20/2015 Overview (06/07/2016): Hypertensive heart disease with diastolic heart failure TAMIR on CPAP 10/17/2014 Overview (06/07/2016): TAMIR on CPAP Diabetes mellitus 10/17/2014 Overview (06/07/2016): DM (diabetes mellitus) Hypertension associated with diabetes 10/17/2014 Overview (06/07/2016): HTN (hypertension), benign Encounters Date Type Department Care Team Description 03/24/2024 Telephone [facility] Medical Group Cardiology [address] [place] [address] Fernando Modi MD Chest Pain 01/18/2024 9:00 AM AD OPERATIONS ASSOCIATE Office Visit [facility] Cardiology [address] [place] [address] Fernando Modi MD 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 (HCC) (Primary Dx); Chronic heart failure with preserved ejection fraction ([facility]) (HCC); Mixed diabetic hyperlipidemia associated with type 2 diabetes mellitus (CMS/HCC) (HCC); Hypertensive heart disease with chronic diastolic congestive heart failure (CMS/HCC) (HCC) 01/18/2024 Orders Only [facility] Medical Group Cardiology [address] [place] [address] ProviderStuart MD from Last 3 [...] on file Legal Sex Male 3:15 AM AD OPERATIONS ASSOCIATE Gender Identity Male 09/03/2018 6:22 AM CDT Sexual Orientation Straight 09/03/2018 6: 22 AM CDT Obstetrics History Last Filed Vital Signs Vital Sign Reading Time Taken Comments Blood Pressure 132/80 01/18/2024 8:53 AM AD OPERATIONS ASSOCIATE Pulse 82 01/18/2024 8:53 AM AD OPERATIONS ASSOCIATE Temperature - - Respiratory Rate - - Oxygen Saturation 96% 01/18/2024 8:53 AM AD OPERATIONS ASSOCIATE Inhaled Oxygen Concentration - - Weight 137.4 kg (303 lb) 01/18/2024 8:53 AM AD OPERATIONS ASSOCIATE Height 182.9 cm (6') 01/18/2024 8:53 AM AD OPERATIONS ASSOCIATE Body Mass Index 41.09 01/18/2024 8:53 AM AD OPERATIONS ASSOCIATE Plan of Treatment Health Maintenance Due Date [...] Recently Relevant to Health Maintenance Insurance MEDICARE [facility] MEDICARE MEDICARE ID[employer] MEDICARE Care Teams Corporate Coordinator Relationship Specialty Start Date End Date Sandi Alfaro PA PCP - General Nurse Practitioner 08/21/17
--- OUTSIDE RECORDS SUMMARY | 2024-03-25 03:09 | XMS_ITS | Clinical Summary ---
Author Organization [facility] Address [address] [place] [address]. [place] [address] [place] [address] Care Team Providers Care Steel Die Engraver Name Role Phone Sandi Alfaro Primary Care Provider [phone] Cheryl Huston RN Unavailable Unavailable Allergies No [...] complication, without long-term current use of insulin ([facility] HHS/HCC) USE 1 STRIP BY OTHER ROUTE [...] ons:Dyslipidemia associated with type 2 diabetes mellitus ([facility] HHS/HCC) Inject 3 mg into the skin [...] congestive heart failure, unspecified heart failure type ([facility] HHS/HCC) TAKE 1 TABLET BY MOUTH EVERYDAY AT BEDTIME 90 tablet 01/18/20 24 Active amLODIPine (NORVASC) 10 MG tabletIndications :Primary hypertension TAKE 1 TABLET BY MOUTH EVERY DAY 90 tablet 01/18/20 24 Active metFORMIN (GLUCOPHAGE) 1000 MG tabletIndications :Diabetic foot ([facility]) TAKE 1 TABLET BY MOUTH TWICE A [...] complication, without long-term current use of insulin ([facility]) Take 1 tablet (10 mg total) by [...] congestive heart failure, unspecified heart failure type ([facility]),Primary hypertension TAKE 1 TABLET BY MOUTH EVERY [...] congestive heart failure, unspecified heart failure type ([facility]),Primary hypertension Take 1 tablet (100 mg total) by mouth daily. 30 tablet 03/01/20 24 025 Discontinued Active Problems Problem Noted Date Diagnosed Date Polyneuropathy associated wi th underlying disease ([facility]) 12/16/2023 Morbid (severe) obesity due to excess calories ([facility]) 05/15/2022 Body mass index (BMI) 40.0-44.9, adult ([facility]) 05/15/2022 Acute hyperglycemia 05/17/2021 Anxiety 05/17/2021 Arthritis 05/17/2021 Atypical syncope 05/17/2021 Calculus of left ureter 05/17/2021 Eczema 05/17/2021 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/17/2021 senior care current use of anticoagulant therapy 0 05/17/2021 Peripheral neuropathy 05/17/2021 Rectal polyp 05/17/2021 Swelling of left lower extremity 05/17/2021 Tear of medial meniscus of knee 05/17/2021 Tobacco abuse 05/17/2021 Pain due to ureteral stent 05/17/2021 Cigarette nicotine dependence without complicati on 03/14/2019 Seasonal allergic rhinitis due to pollen 019 Chronic heart failure with p reserved ejection fraction ([facility]) 11/12/2018 Arthralgia of left hand 11/02/2018 Enchondroma of bone of hand, left 11/02/2018 Carpal tunnel syndrome on left 08/26/2018 Cryptogenic stroke ([facility]) 07/06/2018 Skin lesion of right arm 06/28/2018 Weakness 05/26/2018 Status post placement of implantable loop record er 10/13/2017 Overview (01/13/2018): Overview: [employer]onic Reveal Loop Recorder. Dx; Cryptogenic Stroke. DOI 10/12/[address] Willoughby. [facility] remote monitoring. TIA (transient ischemic attack) 10/06/2017 Mild emphysema ([facility]) 08/28/2017 Hepatic steatosis 08/28/2017 Memory loss 05/18/2017 Chest pain 04/30/2017 S/P coronary artery stent placement 12/17/2016 Hemorrhoids 10/03/2016 Hearing loss 08/01/2016 Decreased hearing 07/17/2016 Chronic nausea 03/27/2016 Diabetic foot ([facility]) 03/10/2016 Abdominal wall bulge 03/10/2016 CHF (congestive heart failure) ([facility]) 01/14/2016 Peripheral edema 12/19/2015 Tinnitus 11/08/2015 History of kidney stones 10/03/2015 Insomnia 05/07/2015 Chronic cough 03/20/2015 Hypertensive heart disease w ith congestive heart failure ([facility]) 02/20/2015 Overview (01/13/2018): Overview: Hypertensive heart disease with diastolic heart failure Coronary artery disease of n ative artery of otoe-missouria heart with stable angina pectoris 02/20/2015 Overview (01/13/2018): Overview: Coronary artery disease involving otoe-missouria coronary artery of otoe-[place]ouria heart with other form of angina pectoris CVA, old, hemiparesis ([facility]) 02/21/20 15 Overview (01/13/2018): Overview: CVA, old, hemiparesis Dyslipidemia associated with type 2 diabetes mellitus ([facility]) 02/20/2015 Overview (01/13/2018): Overview: DM (diabetes mellitus) Overview: DM type 2 with diabetic dyslipidemia Mixed diabetic hyperlipidemi a associated with type 2 diabetes mellitus ([facility]) 02/20/2015 Overview (05/17/2021): DM type 2 with [...] Overview: HTN (hypertension), benign Cerebrovascular accident (CVA) ([facility]) 08/23/2013 Hyperlipidemia 08/23/2013 Resolved Problems Problem Noted Date Diagnosed Date Resolved Date Left nephrolithiasis 10/07/2017 018 Encounter for screening for lung cancer 04/09/2017 06/28/2018 BMI 45.0-49.9, adult ([facility]) 10/03/2016 05/15/2022 Morbid obesity ([facility]) 08/13/2016 05/15/2022 Encounter for preventive health examination 08/23/2013 06/28/2018 Encounters Date Type Department Care Team Description 03/22/2024 Telephone [facility] Family & Internal [address] [address] Sandi Alfaro APNP Medication Request; Advice 02/26/2024 Telephone [facility] Family & Internal [address] [address] Sandi Alfaro APNP Medication Request 02/22/2024 Scan [employer] INFO SRVCS Scanned, Doc [facility] 02/10/2024 Telephone [facility] Family & Internal [address] [address] Sandi Alfaro APNP Lab Results 02/05/2024 9:20 AM CHEMICAL DEPENDENCY ATTENDANT Office Visit [address] [address] Sandi Alfaro, APNP Mass (Follow-up on left arm mass) 02/05/2024 Travel 01/29/2024 Scan [facility] INFO SRVCS Scanned, Doc [facility] Image (SCAN); CT (SCAN) 01/29/[address] [address] Sandi Alfaro, APNP Results 01/28/2024 Scan [facility] INFO SRVCS Scanned, Doc Med [facility] 01/22/2024 Scan [facility] INFO SRVCS Scanned, Doc [facility] Ultrasound (SCAN) 01/21/2024 Scan [facility] INFO SRVCS Scanned, Doc Med [facility] 01/19/2024 10:00 AM CHEMICAL DEPENDENCY ATTENDANT Office Visit [address] [address] Sandi Alfaro, APNP Mass (Left arm) 01/19/2024 Scan [facility] INFO SRVCS Scanned, Doc Med [facility] 01/19/2024 Travel 01/18/2024 Scan [facility] INFO SRVCS Scanned, Doc Med [facility] 12/28/[address] [address] Sandi Alfaro, APNP Refill Request 12/25/2023 Scan [...] pur e alcohol) very rarely 6 beers/year [employer] Answer Date Recorded In the past 12 months has [employer], [employer], oil, or water [employer] threatened to shut off services in your [...] often do you attend chur ch or roman catholic services? Never 05/12/2023 Do you belong to any clubs o r organizations such as judaism groups, unions, fraternal or athletic groups, or [...] Recorded Patient Health Questionnaire-2 Score 0 05/21/2023 [facility] - Occupational [...] place to sleep or slept in a senior care (including now)? No 05/12/2023 Sex and Gender Information Value Date Recorded Sex Assigned at Not on file Legal Sex Male 8:01 PM CDT Gender Identity Not on file Sexual Orientation Not on file Last Filed Vital Signs Vital Sign Reading Time Taken Comments Blood Pressure 126/76 02/05/2024 9:31 AM CHEMICAL DEPENDENCY ATTENDANT Pulse 79 02/05/2024 9:31 AM CHEMICAL DEPENDENCY ATTENDANT Temperature 36.5 ??C (97.7 ??F) 02/05/2024 9:31 AM CS T Respiratory Rate 16 02/05/2024 9:31 AM CHEMICAL DEPENDENCY ATTENDANT Oxygen Saturation 98% 02/05/2024 9:31 AM CHEMICAL DEPENDENCY ATTENDANT Inhaled Oxygen Concentration - - Weight 139.3 kg (307 lb 3.2 oz) 02/05/2024 9:31 AM CHEMICAL DEPENDENCY ATTENDANT Height 182.9 cm (6') 02/05/2024 9:31 AM CHEMICAL DEPENDENCY ATTENDANT Body Mass Index 41.66 02/05/2024 9:31 AM CHEMICAL DEPENDENCY ATTENDANT Plan of Treatment Upcoming Encounters Date Type Department Care Team (Late st Contact Info) Description 03/31/2024 8:40 AM CHEMICAL DEPENDENCY ATTENDANT Office Visit [facility] Medical Group Family & Internal Medicine [address] [address] Sandi Alfaro APNP [address] [place] [address] 05/05/2024 8:00 AM CHEMICAL DEPENDENCY ATTENDANT Office Visit [facility] Family & Internal Medicine - [address] [address] Sandi Alfaro, [facility] [place] [address] Health Maintenance Due Date Last Done Comments Annual Physical 1963 COVID-19 Vaccine ( season) 2023 12/31/2021, 12/31/2020, 05/11/2020, Additional history exists Lipid Panel 05/12/2024 05/13/2023, 05/0 04/2022, 06/28/2021, Additional history exists PHQ-2 (Physician Tangirnaq) 05/20/2024 05/21/2023 Hemoglobin A1C 08/05/2024 02/05/2024, 04/30, [...] URINE RANDOM W/CREATININE Routine 02/05/2024 11:04 AM CHEMICAL DEPENDENCY ATTENDANT Mixed diabetic hyperlipidemia associated with type 2 diabetes mellitus ([facility] HHS/HCC) COLLECT.CAPILLARY (FNGR,HEEL,EAR) Routine 02/05/2024 10:00 AM CHEMICAL DEPENDENCY ATTENDANT Type 2 diabetes mellitus without complication, without long-term current use of insulin ([facility] HHS/HCC) HEMOGLOBIN, GLYCOSYLATED Routine 02/05/2024 Type 2 diabetes mellitus without complication, without long-term current use of insulin ([facility]) CT GENERIC 01/29/2024 IMAGE GENERIC 01/29/2024 IMAGE [...] ALBUMIN/CREATININE RATIO, RANDOM URINE (02/05/2024 11:04 AM CHEMICAL DEPENDENCY ATTENDANT) MICROALBUMIN (U) 635.8(H) <20 MG/L 02/05/20 3:47 PM CHEMICAL DEPENDENCY ATTENDANT [facility] CREATININE RANDOM (U) 87.3 MG/DL 02/05/2024 3:47 PM CHEMICAL DEPENDENCY ATTENDANT [facility] ALBUMIN/CREAT RATIO 728.3(H) <30 MG/G 02/05/2024 3:47 PM CHEMICAL DEPENDENCY ATTENDANT [facility] URINE SPECIMEN / Unknown 02/05/2024 11:04 AM CHEMICAL DEPENDENCY ATTENDANT Sandi LYNCH URINE ORDERABLES Final Resu lt Performing Organization Address City/[facility]/ZIP Co de Phone Number [facility] [place] [address] [place] [address], [place] [phone] * HEMOGLOBIN, GLYCOSYLATED (02/05/2024) HGB A1C 6.5 % [facility] 02/05/2024 Sandi LYNCH LABORATORY Final Resul t Performing Organization Address City/[facility] Co de Phone Number [facility] [address] [place] [address], [place] * CT GENERIC (01/29/2024) Only the [...] (12/25/2023) Anatomical Region Laterality Modality Other 12/25/2023 [employer] [facility] Scanned SCANNING Final Resu lt * OUTSIDE PT/INR (SCAN ORDER) (12/24/2023) 12/24/2023 [employer] [facility] Scanned SCANNING Final Resu lt * OUTSIDE LAB (SCAN ORDER) (12/24/2023) Only the most recent of3 resultswithin the time period is included. 12/24/2023 [employer] [facility] Scanned SCANNING Final Resu lt * (ABNORMAL) LIPID PANEL (05/13/2023 6:00 AM CDT) CHOLESTEROL 87 <200 MG/DL 05/13/2023 7:18 AM CDT [facility] TRIGLYCERIDES 213(H) <150 MG/DL 05/13/2023 7:18 AM CDT [facility] HDL 24(L) >40.0 MG/DL 05/13/2023 7:18 AM CDT [facility] LDL (CALCULATED) 20 <100 MG/DL 05/13/2023 7:18 AM CDT [facility] NON HDL CHOLESTEROL 63 <130 MG/DL 05/13/2023 7:18 AM CDT [facility] CHOL/HDL RATIO 3.6 0.0 - 4.5 05/13/2023 7:18 AM CDT [facility] VLDL CALCULATION 43 5 - 55 MG/DL 05/13/2023 7:18 AM CDT [facility] LIPID INTERPRETATION 05/13/2023 7:18 AM CDT [facility] Comment: NIH CONCENSUS REPORT RECOMMENDATIONS: ?ADULT [...] Ayanna Bellamy MD LABORATORY Final Re sult [facility] [address] [place] [address], * DIABETIC RETINOPATHY EXAM (NEGATIVE) (04/20/2023) us Doc [facility] Scanned SCANNING Final Resu lt Performing Organization Address City/[facility] Co de Phone Number [facility] * [...] a test for HCV RNA (test code 95791) is suggested. For additional information please refer to http://education.[employer]/faq/OHN02u9 (This link is being provided for informational/ educational purposes only.) 06/28/2021 11:2 2 AM CDT 06/29/2021 10:18 AM CDT Sandi LYNCH LABORATORY Final Resul t Performing Organization Address [facility] Co de Phone Number [facility] [address] [place] [address] * COLONOSCOPY (03/28/2015) 03/28/2015 us Documents Scanned [...] 11:13 PM 05/01/2017 6:00 PM Care Teams Steel Die Engraver Relationship Specialty Start Date End Date Sandi Alfaro APNP Family & Internal Medicine [address] [address] PCP - General ADVANCED PRACTICE TEAM AUTOMOBILE ASSEMBLER 04/28/17 Cheryl Huston, dyslexia teacher (Ambulatory) REGISTERED NURSE 03/23/19
--- OUTSIDE RECORDS SUMMARY | 2024-03-25 03:09 | XMS_ITS | Encounter Summary ---
Author Organization [facility] Address [address] [place] [address]. [place] [address] [place] [address] Care Team Providers Care Ic Designer Gate Arrays Name Role Phone Sandi Alfaro Primary Care Provider [phone] Sandi Alfaro Unavailable [phone] Cheryl Huston RN Unavailable Unavailable Encounter Details Date Type Department Care Team (Late st Contact Info) Description 05/13/2021 [employer] Message Enc [facility] Medical Group Multispecialty Care - [facility] [address] [facility], [address] [place] [address] Eliza, [facility] Provider CPAP Social History Tobacco Use Types Packs/Day Years Used Date Smoking Tobacco: Every Day Cigarettes 0.3 40 Smokeless Tobacco: Never Comments:want to quit but gary s alot of stress right [id number] smoking about 3-4 cigaretts a day Alcohol [...] st Contact Info) Description 03/31/2024 8:40 AM INSOLE AND HEEL STIFFENER Office Visit [facility] Family & Internal [facility] [address] [place] [address] Sandi Alfaro APNP [address] [place] [address] 05/05/2024 8:00 AM INSOLE AND HEEL STIFFENER Office Visit [facility] Family & Internal [facility] [address] [place] [address] Sandi Alfaro APNP [address] [place] [address] documented as of this encounter Visit Diagnoses Not on filedocumented in this encounter Additional Health Concerns Infection Onset Date Last Indicated Resolved Time COVID-19 Rule Out 05/12/2023 05/12/2023 05/13/2023 12:01 AM CDT Influenza - Seasonal 05/14/2023 05/14/2023 024 12:32 AM CDT Assessment Noted Time PHQ-9 Depression Total Score: 7 01/24/20 21 1:37 PM INSOLE AND HEEL STIFFENER documented as of this encounter Care Teams Ic Designer Gate Arrays Relationship Specialty Start Date End Date Sandi Alfaro APNP Family & Internal Medicine [address] [address] PCP - General ADVANCED PRACTICE SCIENTIST IMMUNOLOGY 04/28/17 Sandi Alfaro APNP [facility] [place] [address] PCP - Med Group - [facility] Attributed Provider 03/02/15 03/01/22 Cheryl Huston, nurse case manager (Ambulatory) REGISTERED NURSE 03/23/19 documented as of this encounter
--- OUTSIDE RECORDS SUMMARY | 2024-03-25 03:09 | XMS_ITS | Patient Health Summary ---
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 This disclosure is being madepursuant to the Care Everywhere program and may not contain all information available regarding this patient. Last updated 17.[facility] Allergies No known active allergies Medications [...] of5 resultswithin the time period is included. [facility] Glucose WB/POC 131(H) 70 - 115 mg/dL 05/28/2018 6:57 AM CDT [facility] Specimen Type Arterial/C apillary 05/28/2018 6:57 AM CDT [facility] Blood BLOOD SPECIMEN / Unknown 05/28/2018 6:52 AM CDT 05/28/2018 6:57 AM CDT Narrative [facility] - 05/28/2018 6:57 AM CDT DIGITAL MARKETING CONSULTANT: MARIZOL ??JHONY Erick Vera MD LAB - POINT OF CARE ORDERABLES Performing Organization Address [facility]/State/[facility] Co de Phone Number [address] [phone] * PLATELET ANTIBODY DRUG DEPENDENT (05/28/2018 4:14 AM CDT) [facility] Patient Serum Without Drug Comment 06/16/2018 4:11 PM CDT [facility] ([facility]) Comment:Reference lab report sent via fax. Blood BLOOD SPECIMEN / Unknown Lab Venipuncture / Unknown 05/28/2018 4:14 AM CDT 05/28/2018 4:32 AM CDT [facility] ([facility]) - 06/16/2018 4:11 PM CDT Performed at: ??01 - [facility] [address] [place] [address] ??[id number] Loom Mechanic: Husam Reyes MD, Phone: ??[phone] Tone Brower MD LAB - COAGULATION OR DERABLES [facility] ([facility]) [address] [place] [address] [place] * (ABNORMAL) CBC W/O DIFFERENTIAL (05/27/2018 11:30 PM CDT) Only the most recent of4 resultswithin the time period is included. WBC 7.1 3.5 - 10.5 10? 3 /uL 05/28/2018 12:01 AM [facility] RBC 4.15(L) 4.30 - 5.70 10? 6 /uL 05/28/2018 12:01 AM [facility] Hemoglobin 12.8(L) 13.5 - 17.5 g/dL 05/28/2018 12:01 AM [facility] Hematocrit 37.1(L) 39.0 - 50.0 % 05/28/2018 12:01 AM [facility] MCV 89.4 81.0 - 97.0 fL 05/28/2018 12:01 AM [facility] MCH 30.8 28.0 - 34.0 pg 05/28/2018 12:01 AM [facility] MCHC 34.5 32.0 - 36.0 g/dL 05/28/2018 12:01 AM [facility] Platelet Count 135(L) 150 - 400 10? 3 /uL 05/28/2018 12:01 AM [facility] RDW-SD 44.0 36.0 - 50.0 fL 05/28/2018 12:01 AM [facility] RDW-CV 13.5 11.2 - 14.8 % 05/28/2018 12:01 AM [facility] MPV 11.4 9.3 - 12.8 fL 05/28/2018 12:01 AM [facility] nRBC Absolute 0.00 0 10? 3 /uL 05/28/2018 12:01 AM [facility] nRBC Auto 0.0 0 /100 WBC 05/28/2018 12:01 AM [facility] Blood BLOOD SPECIMEN / Unknown Lab Venipuncture / Unknown 05/27/2018 11:30 PM CDT 05/27/2018 11:55 PM CDT Mehul Floyd MD LAB - HEMATOLOGY ORD ERABLES [facility] [address] [phone] * BASIC METABOLIC PANEL (CALCIUM TOTAL) (05/27/2018 11:30 PM CDT) Only the most recent of5 resultswithin the time period is included. BUN 17 7 - 26 mg/dL 05/28/2018 12:17 AM [facility] Creatinine 1.1 0.6 - 1.2 mg/dL 05/28/2018 12:17 AM [facility] Sodium 137 136 - 145 mmol/L 05/28/2018 12:17 AM [facility] Potassium 4.0 3.5 - 4.5 mmol/L 05/28/2018 12:17 AM [facility] Chloride 103 98 - 107 mmol/L 05/28/2018 12:17 AM [facility] CO2 24 22 - 29 mmol/L 05/28/2018 12:17 AM [facility] Glucose 102 70 - 115 mg/dL 05/28/2018 12:17 AM [facility] Calcium 9.4 8.4 - 10.2 mg/dL 05/28/2018 12:17 AM [facility] Anion Gap 14 8 - 18 05/28/2018 12:17 AM [facility] BUN/Creatinine Ratio 15 7 - 23 05/28/2018 12:17 AM [facility] Osmolality Calculated 286 270 - 300 mOsm/kg 05/28/2018 12:17 AM [facility] eGFR >60 >60 mL/min/1.7 3 m2 05/28/2018 12:17 AM [facility] Blood BLOOD SPECIMEN / Unknown Lab Venipuncture / Unknown 05/27/2018 11:30 PM CDT 05/27/2018 11:55 PM CDT Mehul Floyd MD LAB - CHEMISTRY LORENZA BULLARD Performing Organization Address [facility] [place] [address], [facility] [phone] * PHOSPHORUS BLOOD (05/27/2018 11:30 PM CDT) Only the most recent of4 resultswithin the time period is included. Phosphorus 3.2 2.3 - 4.7 mg/dL 05/28/2018 12:17 AM CDT [facility] Blood BLOOD SPECIMEN / Unknown Lab Venipuncture / Unknown 05/27/2018 11:30 PM CDT 05/27/2018 11:55 PM CDT Mehul Floyd MD LAB - CHEMISTRY LORENZA BULLARD Performing Organization Address [facility] [place] [address], [facility] [phone] * MAGNESIUM BLOOD (05/27/2018 11:30 PM CDT) Only the most recent of4 resultswithin the time period is included. Magnesium 1.7 1.6 - 2.6 mg/dL 05/28/2018 12:17 AM CDT [facility] Blood BLOOD SPECIMEN / Unknown Lab Venipuncture / Unknown 05/27/2018 11:30 PM CDT 05/27/2018 11:55 PM CDT Mehul Floyd MD LAB - CHEMISTRY LORENZA BULLARD Performing Organization Address [facility] [place] [address], [facility] [phone] * MRI BRAIN WO CONTRAST (05/27/2018 12:51 [...] resultswithin the time period is included. Pathologist [facility] Troponin I <0.010 <0.032 ng/mL 05/27/2018 9:02 AM CDT [facility] Blood BLOOD SPECIMEN / Unknown Venipuncture / Unknown 05/27/2018 8:28 AM CDT 05/27/2018 8:28 AM CDT Mehul Floyd MD LAB - CHEMISTRY ORDE RABTRAY Performing Organization Address [facility] Co de Phone Number [address] [phone] * HIV-1 HIV-2 ANTIGEN/ANTIBODY (05/26/2018 4:21 PM CDT) [facility] HIV Antigen/Antibod y 1 & 2 Non-reacti ve Non-react kendell 05/26/2018 5:12 PM CDT [facility] Comment: Neither HIV-1 p24 Antigen nor HIV-1/HIV-2 Antibodies are detected. ? Blood BLOOD SPECIMEN / Unknown Venipuncture / Unknown 05/26/2018 4:21 PM CDT 05/26/2018 4:26 PM CDT Jim Ann MD LAB - HEMATOLOGY ORD ERABLES Performing Organization Address City/[facility]/ZIP [place] [address], [facility] [phone] * HEPATITIS C AB SCREEN RFLX NAAT QUANT (05/26/2018 4:21 PM CDT) Pathologist [facility] Hepatitis C Antibody Non-react kendell Non-reac tive 05/26/2018 5:13 PM CDT [facility] Comment: Hepatitis C Antibody screen [...] Ann MD LAB - CHEMISTRY LORENZA BULLARD [facility] Organization Address City/State/ZIP Co de Phone Number [facility] [address] [place] [address] * DRUG SCREEN TOX URINE PANEL (05/26/2018 3:09 PM CDT) [facility] Amphetamines Screen Urine Negative Negative: < 1000 ng/mL 05/26/2018 3:23 PM CDT [facility] Barbiturates Screen Urine Negative Negative: < 200 ng/mL 05/26/2018 3:23 PM T [facility] Benzodiazepine Screen Urine Negative Negative: < 200 ng/mL 05/26/2018 3:23 PM CDT [facility] Opiates Urine Negative Negative: < 300 ng/mL 05/26/2018 3:23 PM T [facility] Cocaine Metabolites Urine Negative Negative: < 300 ng/mL 05/26/2018 3:23 PM CDT [facility] Phencyclidine Screen Urine Negative Negative: < 25 ng/ml 05/26/2018 3:23 PM T [facility] Cannabinoids Screen Urine Negative Negative: <50 ng/mL 05/26/2018 3:23 PM T [facility] Methadone Screen Urine Negative Negative: < 300 ng/mL 05/26/2018 3:23 PM T [facility] Urine URINE / Unknown Collection / Unknown 05/26/2018 3:09 PM CDT 05/26/2018 3:09 PM CDT Narrative [facility] - 05/26/2018 3:23 PM CDT The Urine Toxicology Screening Panel does not screen for Propoxyphene, Meprobamate, Carisoprodol, Trazodone, rlxy-cxw-ohzysyj medications and/or volatiles (Acetone, Isopropanol, Methanol or Ethylene Glycol). Ethanol, Salicylate, Acetaminophen, Tricyclic Antidepressants and several therapeutic drugs may be individually assayed in serum or plasma specimen. Toxicology testing by the [facility] is an aid to medical diagnosis and treatment of patients. No documented chain of custody was maintained. Results are intended to be used for clinical purposes only. ? Mehul Floyd MD LAB - URINE CHEMISTR Y ORDERABLES [facility] [address] [place] [address], [facility] [phone] * EKG 12-LEAD (05/26/2018 2:35 PM CDT) Only the most recent of3 resultswithin the time period is included. Ventricular Rate 78 BPM [facility] MUSE Atrial Rate 78 BPM [facility] MUSE P-R Interval 152 ms [facility] MUSE QRS Duration ms 96 ms [facility] MUSE Q-T Interval ms 422 ms [facility] MUSE QTC Calculation (Bezet) 481 ms [facility] MUSE Calculated P [place] 47 degrees [facility] MUSE Calculated R [place] 2 degrees [facility] MUSE Calculated T [place] 36 degrees [facility] MUSE Interpretation EKG NORMAL SINUS RHYTHM INCOMPLETE RIGHT BUNDLE BRANCH BLOCK PROLONGED QT ABNORMAL ECG WHEN COMPARED WITH ECG OF 20-AUG-2016 05:38, NO SIGNIFICANT CHANGE WAS FOUND Confirmed by Max INGRAM, DEMARCUS ([id number]), pictures editor Jax Colmenares ([id number]) on 06/09/2018 10:06:25 PM [facility] MUSE 05/26/2018 2:35 PM CDT 06/09/2018 10:06 PM CDT Ruiz Chávez MD ECG ORDERABLES Performing Organization Address City/[facility]/ZIP Co de Phone Number [facility] MUSE * TYPE + SCREEN PANEL (05/26/2018 2:00 PM CDT) Only the most recent of2 resultswithin the time period is included. Antibody Screen NEG 9 3:08 PM CDT [facility] BLOOD BANK LAB ABO Rh A POS 05/26/2018 3:08 PM CDT [facility] BLOOD BANK LAB Blood Bank BLOOD SPECIMEN / Unknown Venipuncture / Unknown 05/26/2018 2:00 PM CDT 05/26/2018 2:13 PM CDT Ruiz Chávez MD LAB - BLOOD BANK ORD ERABLES Performing Organization Address [facility] de Phone Number [facility] BLOOD BANK LAB [address] [place] [address] * PT-INR [facility] (05/26/2018 1:59 PM CDT) Only the most recent of2 resultswithin the time period is included. PT 12.8 12.1 - 14.8 Seconds 05/26/2018 2:14 PM CDT [facility] INR 1.0 See Comment 05/26/2018 2:14 PM CDT [facility] Comment: The suggested therapeutic range for standard coumadin (warfarin) therapy is an INR of 2.0-3.0. For high-risk patients (Mechanical Mitral Valve Prosthesis, etc.), the suggested prophylactic therapeutic range is an INR of 2.5-3.5. Blood BLOOD SPECIMEN / Unknown Venipuncture / Unknown 05/26/2018 1:59 PM CDT 05/26/2018 2:05 PM CDT Ruiz Chávez MD LAB - COAGULATION OR DERABLES Performing Organization Address [facility] Co de Phone Number [facility] [address] [place] [address] * (ABNORMAL) HEMOGLOBIN A1C (05/26/2018 1:59 PM CDT) Only the most recent of2 resultswithin the time period is included. Hemoglobin A1c 6.9(H) 4.4 - 6.3 % 05/27/2018 1:45 PM CDT [facility] Comment:Hemoglobin variant d etected. Abnormal hemoglobin may not form glycated product at the same rate as hemoglobin A and/or hemoglobin variant may interfere with the accurate measurement of HbA1C. Consider measurement of HbA1C by alternative method. Recommend hemoglobin electrophoresis to evaluate the variant hemoglobin if clinically indicated. Estimated Average Glucose 151 mg/dL 05/27/2018 1:45 PM CDT [facility] Comment: HbA1c Interpretation: Treatment target values recommended by ADA and other clinical organizations should be used to evaluate metabolic control in patients. Treatment Target Values: Normal : < 5.7% Pre-diabetes: 5.7-6.4% Diabetes: Equal to or greater than 6.5% Reference: [place] [employer] Standards of Care in Diabetes -2014 In patients 70 years and older consider HbA1c target range of 7.0-7.5% Reference: ??Diabetes Mellitus in Older People: Position Statement on behalf of the International Association of Gerontology and Geriatrics (IAGG), the Diabetes Working Libertarian for Older People (EDWPOP), and the International Task Force of Experts in Diabetes. ??Anil Irvin et al. J [place] [employer]. 2012 Test results diagnostic of diabetes should be repeated for confirmation. The Sebia Capillary 2 assay for the measurement of HbA1c is a National Glycohemoglobin Standardization Program (NGSP)certified method. Blood BLOOD SPECIMEN / Unknown Venipuncture / Unknown 05/26/2018 1:59 PM CDT 05/26/2018 2:19 PM CDT Mehul Floyd MD LAB - CHEMISTRY LORENZA [facility] Organization Address City/State/ZIP Co de Phone Number [address] [phone] * (ABNORMAL) CBC W AUTO DIFFERENTIAL (05/26/2018 1:59 PM CDT) Only the most recent of3 resultswithin the time period is included. WBC 8.0 3.5 - 10.5 10? 3 /uL 05/26/2018 2:08 PM [facility] RBC 4.70 4.30 - 5.70 10? 6 /uL 05/26/2018 2:08 PM [facility] Hemoglobin 14.3 13.5 - 17.5 g/dL 05/26/2018 2:08 PM [facility] Hematocrit 42.0 39.0 - 50.0 % 05/26/2018 2:08 PM [facility] MCV 89.4 81.0 - 97.0 fL 05/26/2018 2:08 PM [facility] MCH 30.4 28.0 - 34.0 pg 05/26/2018 2:08 PM [facility] MCHC 34.0 32.0 - 36.0 g/dL 05/26/2018 2:08 PM [facility] Platelet Count 158 150 - 400 10? 3 /uL 05/26/2018 2:08 PM [facility] RDW-SD 44.7 36.0 - 50.0 fL 05/26/2018 2:08 PM [facility] RDW-CV 13.7 11.2 - 14.8 % 05/26/2018 2:08 PM [facility] MPV 10.9 9.3 - 12.8 fL 05/26/2018 2:08 PM [facility] nRBC Absolute 0.00 0 10? 3 /uL 05/26/2018 2:08 PM [facility] nRBC Auto 0.0 0 /100 WBC 05/26/2018 2:08 PM [facility] Neutrophils % 69.0 35.0 - 70.0 % 05/26/2018 2:08 PM [facility] Lymphocytes % 16.7(L) 19.7 - 55.1 % 05/26/2018 2:08 PM [facility] Monocytes % 9.7 3.0 - 15.0 % 05/26/2018 2:08 PM [facility] Eosinophils % 4.1 0.0 - 6.0 % 05/26/2018 2:08 PM [facility] Basophil % 0.1 0.0 - 1.5 % 05/26/2018 2:08 PM [facility] Neutrophils Absolute 5.5 1.6 - 7.0 10? 3 /uL 05/26/2018 2:08 PM T [facility] Lymphocyte Absolute 1.3 0.8 - 2.9 10? 3 /uL 05/26/2018 2:08 PM [facility] Monocytes Absolute 0.78(H) 0.14 - 0.66 10? 3 /uL 05/26/2018 2:08 PM [facility] Eosinophils Absolute 0.33 0.00 - 0.45 10? 3 /uL 05/26/2018 2:08 PM [facility] Basophils Absolute 0.01 0.00 - 0.06 10? 3 /uL 05/26/2018 2:08 PM [facility] Immature Granulocytes % 0.4 0.0 - 1.0 % 05/26/2018 2:08 PM [facility] Blood BLOOD SPECIMEN / Unknown Venipuncture / Unknown 05/26/2018 1:59 PM CDT 05/26/2018 2:05 PM CDT Ruiz Chávez MD LAB - HEMATOLOGY ORD ERABLES [facility] [address] [place] [address] * (ABNORMAL) COMPREHENSIVE METABOLIC PANEL (05/26/2018 1:59 PM CDT) BUN 25 7 - 26 mg/dL 05/26/2018 2:23 PM [facility] Creatinine 1.1 0.6 - 1.2 mg/dL 05/26/2018 2:23 PM [facility] Sodium 138 136 - 145 mmol/L 05/26/2018 2:23 PM [facility] Potassium 4.1 3.5 - 4.5 mmol/L 05/26/2018 2:23 PM [facility] Chloride 101 98 - 107 mmol/L 05/26/2018 2:23 PM [facility] CO2 26 22 - 29 mmol/L 05/26/2018 2:23 PM [facility] Glucose 109 70 - 115 mg/dL 05/26/2018 2:23 PM [facility] Calcium 9.9 8.4 - 10.2 mg/dL 05/26/2018 2:23 PM [facility] Protein Total 7.8 6.0 - 8.3 g/dL 05/26/2018 2:23 PM [facility] Albumin 4.0 3.4 - 5.0 g/dL 05/26/2018 2:23 PM [facility] Bilirubin Total 0.8 0.2 - 1.2 mg/dL 05/26/2018 2:23 PM [facility] Alkaline Phosphatase 57 40 - 150 Units/L 05/26/2018 2:23 PM [facility] ALT 56(H) 0 - 55 Units/L 05/26/2018 2:23 PM [facility] AST 44(H) 5 - 34 Units/L 05/26/2018 2:23 PM [facility] Anion Gap 15 8 - 18 05/26/2018 2:23 PM [facility] BUN/Creatinine Ratio 23 7 - 23 05/26/2018 2:23 PM [facility] Osmolality Calculated 291 270 - 300 mOsm/kg 05/26/2018 2:23 PM [facility] Albumin/Globulin Ratio 1.1 1.1 - 2.3 05/26/2018 2:23 PM [facility] eGFR >60 >60 mL/min/1.7 3 m2 05/26/2018 2:23 PM [facility] Blood BLOOD SPECIMEN / Unknown Venipuncture / Unknown 05/26/2018 1:59 PM CDT 05/26/2018 2:05 PM T Ruiz Chávez MD LAB - CHEMISTRY LORENZA BULLARD [facility] Organization Address City/State/ZIP Co de Phone Number [address] [phone] * (ABNORMAL) LIPID PROFILE (05/26/2018 1:59 PM CDT) Only the most recent of2 resultswithin the time period is included. Cholesterol Total 125 <200 mg/dL 05/26/2018 2:46 PM [facility] HDL 26(L) >40 mg/dL 05/26/2018 2:46 PM CDT [facility] Comment: ATP III Classification of HDL Cholesterol: ? <40 mg/dL: ??Considered a major risk factor. ? >60 mg/dL: ??Considered a negative risk factor. ? LDL Calculated 38 <100 mg/dL 05/26/2018 2:46 PM CDT [facility] Comment: ATP III Classification of LDL Cholesterol: ?<100 mg/dL: ??Optimal ? 100 - 129 mg/dL: ??Near Optimal/Above Optimal ? 130 - 159 mg/dL: ??Borderline High ? 160 - 189 mg/dL: ??High ?>190 mg/dL: ??Very High ? Triglycerides 307(H) <150 mg/dL 05/26/2018 2:46 PM [facility] Comment: ATP III Classification of Triglycerides: ?<150 mg/dL: ??Normal ? 150 - 199 mg/dL: ??Borderline High ? 200 - 400 mg/dL: ??High ?>500 mg/dL: ??Very High Blood BLOOD SPECIMEN / Unknown Venipuncture / Unknown 05/26/2018 1:59 PM CDT 05/26/2018 2:19 PM CDT Mehul Floyd MD LAB - CHEMISTRY LORENZA BULLARD Performing Organization Address City/State/[facility] Co de Phone Number [address] [phone] * CT ANGIO BRAIN NECK STROKE (05/26/2018 [...] stenosis. Report dictated by Shaun Garland MD (market president). I, Dr. YOSELYN MURILLO have personally reviewed [...] Outside hospital CT head dated 05/26/2018 from [facility], CT head dated 05/19/2018, MRI brain dated [...] the intracranial vertebrals, basilar artery, and the theology teacher appear unremarkable. CTA NECK: Noted normal variant [...] Outside hospital CT head dated 05/26/2018 from [facility], CT head dated 05/19/2018, MRI brain dated [...] circulation, the intracranial vertebrals, basilarartery, and the theology teacher appear unremarkable. CTA NECK: Noted normal variant [...] vertebralstenosis. Report dictated by Shaun Garland MD (market president). Dr. YOSELYN Roman have personally reviewed and [...] stenosis. Report dictated by Shaun Garland MD (market president). Dr. YOSELYN Roman have personally reviewed and [...] Outside hospital CT head dated 05/26/2018 from [facility], CT head dated 05/19/2018, MRI brain dated [...] the intracranial vertebrals, basilar artery, and the theology teacher appear unremarkable. CTA NECK: Noted normal variant [...] at C5-6 and C6-7 levels. Procedure Note Ysoelyn Murillo MD - 05/26/2018 EXAMINATION: 1. CT [...] Outside hospital CT head dated 05/26/2018 from [facility], CT head dated 05/19/2018, MRI brain dated [...] circulation, the intracranial vertebrals, basilarartery, and the theology teacher appear unremarkable. CTA NECK: Noted normal variant [...] vertebralstenosis. Report dictated by Shaun Garland MD (market president). I, Dr. YOSELYN MURILLO have personally reviewed and interpreted this examination/study. This report was electronically signed by YOSELYN MURILLO on 05/26/2018 2:09 PM . Ruiz Chávez MD CT ORDERABLES * (ABNORMAL) GLUCOSE ACCUCHECK (08/21/2016 12:30 PM CDT) Only the most recent of6 resultswithin the time period is included. Glucose, Fingerstick 154(H) 70-115mg/d L mg/dL [facility] RALTrina (BEAKER) Comment:Mill Stenciler: YUNG CARABALLO 08/21/2016 12:3 0 PM CDT Gera Magallon MD LAB - CHEMISTRY LORENZA BULLARD [facility] DIEUDONNE NUNEZ) * CT HEAD WO CONTRAST [...] CK Total 87 30 - 200 Units/L [facility] CK-MB 0.7 0.0 - 6.6 ng/mL [facility] Blood specimen (specimen) BLOOD SPECIMEN / Unknown 08/20/2016 9:00 AM CDT 08/20/2016 9:14 AM CDT Bishop Walker MD LAB - CHEMISTRY LORENZA [facility] Organization Address City/State/ZIP Co de Phone Number [address] [phone] * DRUG ABUSE PANEL 10-20+ETHANOL URINE NO CONFIRM (08/20/2016 7:07 AM CDT) Amphetamines Screen Urine Negative Negative: < 1000 ng/mL [facility] Barbiturates Screen Urine Negative Negative: < 200 ng/mL [facility] Benzodiazepine Screen Urine Negative Negative: < 200 ng/mL [facility] Opiates Urine Negative Negative: < 300 ng/mL [facility] Cocaine Metabolites Urine Negative Negative: < 300 ng/mL [facility] Phencyclidine Screen Urine Negative Negative: < 25 ng/ml [facility] Cannabinoids Screen Urine Negative Negative: <50 ng/mL [facility] Methadone Screen Urine Negative Negative: < 300 ng/mL [facility] Urine specimen (specimen) URINE / Unknown 08/20/2016 7:07 AM CDT 08/20/2016 7:22 AM CDT Narrative [facility] - 08/20/2016 8:03 AM CDT The Urine Toxicology Screening Panel does not screen for Propoxyphene, Meprobamate, Carisoprodol, Trazodone, [id number] medications and/or volatiles (Acetone, Isopropanol, Methanol or Ethylene Glycol). Ethanol, Salicylate, Acetaminophen, Tricyclic Antidepressants and several therapeutic drugs may be individually assayed in serum or plasma specimen. Toxicology testing by the [facility] is an aid to medical diagnosis and treatment of patients. No documented chain of custody was maintained. Results are intended to be used for clinical purposes only. ? Bishop Walker MD LAB - URINE CHEMISTR Y ORDERABLES Performing Organization Address [facility] de Phone Number [address] [phone] * (ABNORMAL) HEPATIC FUNCTION PANEL (08/20/2016 5:28 AM CDT) Protein Total 6.8 6.0 - 8.3 g/dL [facility] Albumin 3.5 3.4 - 5.0 g/dL [facility] Bilirubin Total 0.8 0.2 - 1.2 mg/dL [facility] Bilirubin Conjugated 0.2 0.0 - 0.5 mg/dL [facility] Bilirubin Unconjugated 0.6 Unconjugated Bilirubin is a calculated value: Reference ranges have not been established. mg/dL [facility] Alkaline Phosphatase 55 40 - 150 Units/L [facility] ALT 69(H) 0 - 55 Units/L [facility] AST 46(H) 5 - 34 Units/L [facility] Albumin/Globulin Ratio 1.1 1.1 - 2.3 [facility] Blood specimen (specimen) BLOOD SPECIMEN / Unknown 08/20/2016 5:28 AM CDT 08/20/2016 5:32 AM CDT Bishop Walker MD LAB - CHEMISTRY ORDE RABLES Performing Organization Address [facility] [place] [address], [facility] [phone] * ECHO W DOPPLER AND COLOR FLOW [...] CDT) APTT 27.5 23.0 - 38.4 Seconds [facility] Comment:Suggested therapeuti c range for full dose I.V. heparin therapy for venous thromboembolism is 66.0-91.0 seconds. Blood specimen (specimen) BLOOD SPECIMEN / Unknown 08/19/2016 6:11 PM CDT 08/19/2016 6:11 PM CDT Narrative [facility] - 08/19/2016 6:23 PM CDT Please ensure that the aPTT specimen is received in the clinical lab within 1 hour of collection if it is used for therapeutic heparin monitoring. Processing of heparinized specimens older than 1 hour may result in inaccurate test results. Is patient on Heparin, Argatroban or Dabigatran?->N Bishop Walker MD LAB - COAGULATION OR DERABLES [address] [phone] * CULTURE URINE (10/19/2013 11:31 AM CDT) Only the most recent of2 resultswithin the time period is included. Culture Urine No Growth of >=100 CFU/ml after 48 Hours [facility] Urine specimen (specimen) URINE SPECIMEN OBTAINED BY CLEAN CATCH PROCEDURE / Unknown 10/19/2013 11:31 AM CDT 10/19/2013 3:49 PM CDT Narrative [facility] - 10/21/2013 3:11 PM CDT EricSpecalexandrian#[id number] Eric Loc//Bed: 3 [facility]/316/02 CLN CATCH U @ CHRISTIANNE DATE was changed from 10/18/13 to 10/19/13 @ by DELICIA. Historical Provider MD LAB - MICROBIOLOG Y ORDERABLES [address] [phone] Care Teams Pipe Coremaker Relationship Specialty Start Date End Date Sandi Alfaro, NEW CAR MAKE READY MECHANIC-PAPER INSERTER [address] [place] [address] PCP - General 08/27/21
--- OUTSIDE RECORDS SUMMARY | 2024-03-25 03:09 | XMS_ITS | Encounter Summary ---
Author Organization [facility] Address [address] [place] [address]. [place] [address] [place] [address] Care Team Providers Care Medical Record Specialist Name Role Phone Sandi Alfaro Primary Care Provider [phone] Cheryl Huston RN Unavailable Unavailable Encounter Details Date Type Department Care Team (Late st Contact Info) Description 08/18/2023 OffersBy.Me Message Enc [facility] Medical Group Multispecialty Care - [address], [address] [place] [address] [facility], [facility] Provider Results Social History Tobacco Use Types Packs/Day Years Used Date Smoking Tobacco: Every Day Cigarettes 0.3 40 Smokeless Tobacco: Never Comments:currently smoking 2 -3 cigarettes a day Alcohol Use Standard Drinks/Week Comments Yes 0 (1 standard drink = 0.6 oz pur e alcohol) very rarely 6 beers/year [facility] Utilities Answer Date Recorded In the past 12 months has [employer] gas, oil, or water Track threatened to shut off services in your [...] How often do you attend chur or advent services? Never 05/12/2023 Do you belong to any clubs o r organizations such as mormonism groups, unions, fraternal or athletic groups, or [...] Recorded Patient Health Questionnaire-2 Score 0 05/21/2023 [facility] - Occupational [...] place to sleep or slept in a retirement (including now)? No 05/12/2023 Sex and Gender [...] st Contact Info) Description 03/31/2024 8:40 AM RESEARCH TECHNOLOGIST Office Visit [facility] Family Internal [address] [address] Sandi Alfaro APNP [address] [place] [address] 05/05/2024 8:00 AM RESEARCH TECHNOLOGIST Office Visit [facility] Internal [address] [address] Sandi Alfaro APNP [address] [place] [address] documented as of this encounter Visit Diagnoses Not on filedocumented in this encounter Additional Health Concerns Assessment Noted Time PHQ-9 Depression Total Score: 0 05/21/19 24 11:21 AM CDT documented as of this encounter Care Teams Medical Record Specialist Relationship Specialty Start Date End Date Sandi Alfaro APNP Family & Internal [address] [address] PCP - General ADVANCED PRACTICE CLOTH REELER 04/28/17 Cheryl Huston, radiologist diagnostic (Ambulatory) REGISTERED NURSE 03/23/19 documented as of this encounter
--- OUTSIDE RECORDS SUMMARY | 2024-03-25 03:09 | XMS_ITS | Encounter Summary ---
Author Organization [facility] Address [address] [place] [address]. [place], [place] [address] [place] [address] Care Team Providers Care Ship Surveyor Name Role Phone Sandi Alfaro Primary Care Provider [phone] Cheryl Huston RN Unavailable Unavailable Encounter Details Date Type Department Care Team (Late Contact Info) Description 08/27/2022 MyChart Message Enc [facility] Medical [facility] [address] [place], [place] [address] [facility] Provider Air Quality Message Social History Tobacco [...] st Contact Info) Description 03/31/2024 8:40 AM JUNIOR ANALYST Office Visit [facility] Medical [facility] Family & Internal Medicine [address] [address] Sandi Alfaro APNP [address] [place] [address] 05/05/2024 8:00 AM JUNIOR ANALYST Office Visit [facility] Medical Group Family & Internal Medicine - [address] [address] Sandi Alfaro APNP [address] [place] [address] documented as of this encounter Visit Diagnoses Not on filedocumented in this encounter Additional Health Concerns Infection Onset Date Last Indicated Resolved Time COVID-19 Rule Out 05/12/2023 05/12/2023 05/13/2023 12:01 AM CDT Influenza - Seasonal 05/14/2023 05/14/2023 024 12:32 AM CDT Assessment Noted Time PHQ-9 Depression Total Score: 13 023 10:48 AM CDT documented as of this encounter Care Teams Ship Surveyor Relationship Specialty Start Date End Date Sandi Alfaro APNP Family & Internal Medicine [place] [address] [place] [address] PCP - General ADVANCED PRACTICE RAIL CAR WELDER 04/28/17 Cheryl Huston access coordinator (Ambulatory) REGISTERED NURSE 03/23/19 documented as of this encounter
== END 2024-03-23 21:05 | disposition home or self-care (01) ==
PROVIDERS: Emergency Medicine; Emergency Provider Emergency Medicine; PCP Registered Nurse
DX: B34.9 Viral infection, unspecified (principal); R07.89 Other chest pain; Z20.822 Contact with and (suspected) exposure to COVID-19; I25.2 Old myocardial infarction; I25.10 Atherosclerotic heart disease of native coronary artery without angina pectoris; I50.9 Heart failure, unspecified; I11.0 Hypertensive heart disease with heart failure; I69.954 Hemiplegia and hemiparesis following unspecified cerebrovascular disease affecting left non-dominant side; J44.9 Chronic obstructive pulmonary disease, unspecified; E78.5 Hyperlipidemia, unspecified; E11.42 Type 2 diabetes mellitus with diabetic polyneuropathy; K21.9 Gastro-esophageal reflux disease without esophagitis; G47.33 Obstructive sleep apnea (adult) (pediatric); F32.A Depression, unspecified; F17.210 Nicotine dependence, cigarettes, uncomplicated; Z95.5 Presence of coronary angioplasty implant and graft; Z86.16 Personal history of COVID-19; Z86.718 Personal history of other venous thrombosis and embolism; Z86.0100 Personal history of colon polyps, unspecified; Z87.442 Personal history of urinary calculi; Z87.01 Personal history of pneumonia (recurrent); Z90.49 Acquired absence of other specified parts of digestive tract; Z79.899 Other long term (current) drug therapy; Z79.85 Long-term (current) use of injectable non-insulin antidiabetic drugs; Z79.01 Long term (current) use of anticoagulants; Z79.82 Long term (current) use of aspirin; Z79.84 Long term (current) use of oral hypoglycemic drugs; I45.10 Unspecified right bundle-branch block; I49.1 Atrial premature depolarization
CPT/HCPCS: 36415; 80053; 83690; 84484; 85025; 85610; 85730; 87637; 93005; 96361; 96374; 96375; 99284; A9270; J2270; J2405; J7030

== ENCOUNTER 2024-03-29 10:20 | Outpatient (CLI) | payer MEDICARE, MEDICAID, SELFPAY ==
--- NOTE | ~2024-03-29 | XR_ITS ---
EXAMINATION: XR abdomen/kub 1V DATE: 03/29/2024 10:42 INDICATION: Kidney stone. TECHNIQUE: A supine view of the abdomen on 2 radiographs was obtained. COMPARISON: Abdomen radiographs 03/24/2023, CT abdomen and pelvis 10/25/2023 FINDINGS: There are no dilated loops of bowel. There is a 3 mm density overlying left kidney. Surgica l clips in the right upper quadrant are likely from cholecystectomy. There are vascular calcification s in the pelvis. IMPRESSION: 1. 3 mm density overlying left kidney that may be a stone. Reviewed, dictated and finalized at location A. USIES INSTALLER
--- OUTSIDE RECORDS SUMMARY | 2024-03-29 11:18 | XMS_ITS ---
Author Organization [facility] Address [address] [place], [place] [address] Care Team Providers Care Sap Security Consultant Name Role Phone PIETER WALSH Unavailable [phone] Sandi Alfaro Unavailable Unavailable REASON FOR VISIT [...] 0.0005 MG/MG Topical Ointment [Temovate] *Reorder from [employer] for eRx and Interaction Alerts* 7 Active clotrimazole 10 MG/ML Topical Cream CUTANEOUS clotrimazole 10 MG/ML Topical CreamOriginal Medicationclotrimazole 10 MG/ML Topical Cream *Reorder from [employer] for eRx and Interaction Alerts* 7 Active betamethasone 0.5 MG/ML / clotrimazole 10 MG/ML Topical Cream [Lotrisone] CUTANEOUS betamethasone 0.5 MG/ML / clotrimazole 10 MG/ML Topical Cream [Lotrisone]Original Medicationbetamethasone 0.5 MG/ML / clotrimazole 10 MG/ML Topical Cream [Lotrisone] *Reorder from [employer] for eRx and Interacti 7 Active Augmented betamethasone 0.5 MG/ML Topical Cream CUTANEOUS Augmented betamethasone 0.5 MG/ML Topical CreamOriginal MedicationAugmented betamethasone 0.5 MG/ML Topical Cream *Reorder from [facility] for eRx and Interaction Alerts* 7 Active betamethasone 0.5 MG/ML / clotrimazole 10 MG/ML Topical Cream CUTANEOUS betamethasone 0.5 MG/ML / clotrimazole 10 MG/ML Topical CreamOriginal Medicationbetamethasone 0.5 MG/ML / clotrimazole 10 MG/ML Topical Cream *[facility] eRx and Interaction Alerts* 7 Active Encounters Encounter Location Date Provider Diagnosis [facility] [place] [address] [place], [place] [address] 11/09/2023 PIETERKELLEY WALSH Tinea unguium B35.1 ; Pain in right toe(s) M79.674 ; Pain in left toe(s) M79.675 ; 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 Provider Name:PITEER WALSH, 08:10:00 AM, [address], [address], [id number], Progress Notes * KLAUDIA HALEY BDOB:[birth year] (63 yo M)Acc No.[id number]:11/09/2023 Patient:?KLAUDIA HALEY Provider:?Pieter Walsh DPM :[id number]???Age:63 Y???Sex:Male Ottoniel e:11/09/2023 Address:[id number] Subjective: * Chief Complaints: * ???1. Patient [...] betamethasone 0.5 MG/ML Topical Cream *Reorder from [facility] for eRx and Interaction Alerts*, Taking betamethasone 0.5 MG/ML / clotrimazole 10 MG/ML Topical Cream CUTANEOUS , Notes to Pharmacist: betamethasone 0.5 MG/ML / clotrimazole 10 MG/ML Topical CreamOriginal Medicationbetamethasone 0.5 MG/ML / clotrimazole 10 MG/ML Topical Cream *Reorder from [facility] for eRx and Interaction Alerts*, Taking betamethasone 0.5 MG/ML / clotrimazole 10 MG/ML Topical Cream [Lotrisone] CUTANEOUS , Notes to Pharmacist: betamethasone 0.5 MG/ML / clotrimazole 10 MG/ML Topical Cream [Lotrisone]Original Medicationbetamethasone 0.5 MG/ML / clotrimazole 10 MG/ML Topical Cream [Lotrisone] *Reorder from [facility] for eRx and Interacti, Taking clobetasol propionate 0.0005 MG/MG Topical Ointment [Temovate] CUTANEOUS , Notes to Pharmacist: clobetasol propionate 0.0005 MG/MG Topical Ointment [Temovate]Original Medicationclobetasol propionate 0.0005 MG/MG Topical Ointment [Temovate] *Reorder from [facility] for eRx and Interaction Alerts*, Taking clotrimazole 10 MG/ML Topical Cream CUTANEOUS , Notes to Pharmacist: clotrimazole 10 MG/ML Topical CreamOriginal Medicationclotrimazole 10 MG/ML Topical Cream *Reorder from [facility] for eRx and Interaction Alerts* Objective: * [...] M79.674?3.?Pain in left toe(s) - M79.675?4.?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 ?? * Procedure Codes:?01628 DEBRI DE NAIL, 6 OR MORE, Modifiers: Q8 * Follow Up:?10 - 12 weeks (Re ason: At-Risk Foot care, sooner if problems develop.) * Billing Information: * Visit Code:? * Procedure Codes:? 04103 DEBRIDE NAIL, 6 OR MORE. Modifiers: Q8 * Sign off status: Completed true * Provider:?Pieter Walsh DPM Date:?11/09/19 24 Generated for Michelle chi/Danielle/Nimesh on:?03/29/2024 11:17 AM FLUE GAS ANALYST History and Physical Notes * HPI (History [...] seen by Dr. Alfaro was 08/2023., Initials [facility] , Patient presents to the office [...]
--- OUTSIDE RECORDS SUMMARY | 2024-03-29 11:18 | XMS_ITS | Referral Summary ---
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 (HCC) (Primary Dx); CVA, old, hemiparesis (CMS/HCC) (HCC); Hypertension associated with diabetes (HCC); Recently quit using tobacco 03/24/[address] [place] [phone] Fernando Modi MD Chest Pain 01/18/2024 Orders Only [facility] Cardiology [address] [place] [address] [address] [place] [phone] ProviderStuart MD 01/18/2024 9:00 AM PROFESSIONAL CASTER Office Visit [facility] Cardiology [address] [place] [address] [address] [place] [phone] Fernando Modi MD 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 (HCC) (Primary Dx); Chronic heart failure with preserved ejection fraction (CMS/HCC) (HCC); Mixed diabetic hyperlipidemia associated with type 2 diabetes mellitus ([facility]/HCC) ([facility]); Hypertensive heart disease with chronic diastolic congestive heart failure ([facility]) ([facility]) from Last 3 Months Allergies No known [...] loratadine 10 mg capsule Take by mouth Activ e albuterol HFA (PROVENTIL HFA,VENTOLIN HFA,PROAIR HFA) 90 mcg/actuation inhaler Inhale 2 puffs every 6 (six) hours as needed for wheezing Active ALPRAZolam (XANAX) 0.25 mg tablet Take 1 tablet (0.25 mg total) by mouth nightly as needed for sleep 2 Active montelukast (SINGULAIR) 10 mg tablet [...] as needed for nausea or vomiting Active oxyCODONE-aceta minophen (PERCOCET) 5-325 mg per tabletIndicatio ns:Pain Take 1 tablet by mouth every 4 (four) hours as needed for pain Active nitroglycerin (NITROSTAT) 0.[address] 1 tablet (0.4 mg total) under the tongue every 5 (five) minutes as needed for chest pain 75 tablet 3 3 Active isosorbide mononitrate ER (IMDUR) 60 mg 24 hr tabletIndicatio ns: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 180 tablet 3 4 Active Xarelto 2.5 mg tablet TAKE 1 TABLET BY MOUTH TWICE A DAY 180 tablet 3 4 Active omeprazole (PriLOSEC) 40 mg capsule 4 Active atorvastatin (LIPITOR) 80 mg tablet TAKE 1 TABLET BY MOUTH EVERY DAY 90 tablet 1 4 Active meclizine (ANTIVERT) 25 mg tablet TAKE 1 TABLET BY MOUTH THREE TIMES A DAY NEEDED FOR DIZZINES 4 Active tamsulosin (FLOMAX) 0.4 mg extended release capsule TAKE 1 CAPSULE BY MOUTH EVERYDAY AT BEDTIME Active Symbicort 160-4.5 mcg/actuation inhaler Inhale 2 puffs 2 (two) times a day 2 03/28/19 25 Discontinu ed(Therapy completed) methocarbamoL (ROBAXIN) 750 mg tablet Take 1 tablet (750 mg total) by mouth 4 (four) times a day 03/28/19 25 Discontinu ed(Therapy completed) Active Problems Problem Noted Date Diagnosed Date Hematuria, gross 11/13/2021 Chronic heart failure with p reserved ejection fraction ([facility]) 11/12/2018 Cryptogenic stroke 07/06/2018 Status post placement of implantable loop record er 10/13/2017 Overview (10/13/2017): mobintent Reveal Loop Recorder. Dx; Cryptogenic Stroke. DOI 10/12/[address] Willoughby. [facility]. TIA (transient ischemic attack) 10/06/2017 S/P coronary artery stent placement 12/17/2016 Morbid obesity with BMI of 45.0-49.9, adult ([facility] /[facility]) 08/13/2016 Mixed anxiety depressive disorder 05/01/2015 Overview (06/07/2016): Anxiety and depression Coronary artery disease of n ative artery of chehalis heart with stable angina pectoris 02/20/2015 Overview (06/07/2016): Coronary artery disease involving chehalis coronary artery of chehalis heart with other form of angina pectoris CVA, old, hemiparesis ([facility]) 02/20/2015 Overview (06/07/2016): CVA, old, hemiparesis Mixed diabetic hyperlipidemi a associated with type 2 diabetes mellitus ([facility]) 02/20/2015 Overview (06/07/2016): DM type [...] Tobacco: Never Tobacco Cessation:Ready to Q uit: Not Asked; Counseling Given: Not Answered Alcohol Use Standard Drinks/Week Comments Yes 0 (1 standard drink = 0.6 oz pur e alcohol) Sex and Gender Information Value Date Recorded Sex Assigned at Not on file Legal Sex Male 3:15 AM PROFESSIONAL CASTER Gender Identity Male 09/03/2018 6:22 AM CDT Sexual Orientation Straight 09/03/2018 6: 22 AM CDT Last Filed Vital Signs Vital Sign Reading Time Taken Comments Blood Pressure 132/72 03/28/2024 9:10 AM PROFESSIONAL CASTER Pulse 82 01/18/2024 8:53 AM PROFESSIONAL CASTER Temperature - - Respiratory Rate - - Oxygen Saturation 96% 03/28/2024 9:10 AM PROFESSIONAL CASTER Inhaled Oxygen Concentration - - Weight 137.4 kg (303 lb) 03/28/2024 9:10 AM PROFESSIONAL CASTER Height 182.9 cm (6') 03/28/2024 9:10 AM PROFESSIONAL CASTER Body Mass Index 41.09 03/28/2024 9:10 AM PROFESSIONAL CASTER Plan of Treatment Not on file Procedures Procedure Name Priority Date/Time Associated Diagnosis Comments LIPID PANEL Routine 10/20/2023 from Last 3 Months or Most Recently Relevant to Health Maintenance Results * (ABNORMAL) Lipid panel (10/20/2023) SCRIBED Cholesterol, Total 87 < - 200 EXTERNAL LAB SCRIBED HDL 24 > - 40 EXTERNAL LAB SCRIBED LDL 20 < - 100 EXTERNAL LAB SCRIBED Triglycerides 213(A) < - 150 EXTERNAL LAB Blood 10/20/2023 us Historical Provider LAB BLOOD ORDERABLES Elida l Result EXTERNAL LAB from Last 3 Months or Most Recently Relevant to Health Maintenance Insurance MEDICARE [facility] MEDICARE MEDICARE [facility] MEDICARE Care Teams Head Of Maintenance Relationship Specialty Start Date End Date Sandi Alfaro PA PCP - General Nurse Practitioner 08/21/17
--- OUTSIDE RECORDS SUMMARY | 2024-03-29 11:18 | XMS_ITS | Clinical Summary ---
Author Organization [email or web address] Address [address] [place] [address] Care Team Providers Care Executive Coordinator Name Role Phone Sandi Alfaro NARCOTICS AND/OR VICE DETECTIVE-BATCH RECORDS CLERK Primary Care Provider Source Comments [email or web address],non-owned Affiliates and Associated Physician Practices is amultiple site organization consisting of ambulatory clinics and hospital sitesin [place], [place], [place] and [place]. This disclosure is being madepursuant to the Care Everywhere program and may not contain all information available regarding this patient. Last updated 17.[email or web address] Allergies No known active allergies Medications * [...] ve Non-react kendell 05/26/2018 5:12 PM CDT [facility] Comment: Neither HIV-1 p24 Antigen nor HIV-1/HIV-2 Antibodies are detected. ? Blood BLOOD SPECIMEN / Unknown Venipuncture / Unknown 05/26/2018 4:21 PM CDT 05/26/2018 4:26 PM CDT Jim Ann MD LAB - HEMATOLOGY ORD HARSHA Performing Organization Address [facility]/ZIP Co de Phone Number [address] [phone] * HEPATITIS C AB SCREEN RFLX NAAT QUANT (05/26/2018 4:21 PM CDT) Pathologist [facility] Hepatitis C Antibody Non-react kendell Non-reac tive 05/26/2018 5:13 PM CDT [facility] Comment: Hepatitis C Antibody screen indicates [...] - CHEMISTRY LORENZA BULLARD Performing Organization Address [facility]/ZIP Co de Phone Number [address] [phone] from Last 3 Months or Most Recently Relevant to Health Maintenance Advance Directives * Full Code (Latest Code Status on File) Date Activated Date Inactivated Comments 05/26/2018 2:01 PM 05/28/2018 11:56 AM Care Teams Executive Coordinator Relationship Specialty Start Date End Date Sandi Alfaro, NARCOTICS AND/OR VICE DETECTIVE-BATCH RECORDS CLERK [address] [place] [address] PCP - General 08/27/21
--- OUTSIDE RECORDS SUMMARY | 2024-03-29 11:18 | XMS_ITS | Encounter Summary ---
Author Organization [facility] Address [address] [place] [address]. [place] [address] [place] [address] Care Team Providers Care Railroader Name Role Phone Sandi Alfaro Primary Care Provider [phone] Sandi Alfaro Unavailable [phone] Cheryl Huston RN Unavailable Unavailable Encounter Details Date Type Department Care Team (Late st Contact Info) Description 05/13/2021 [facility] Message Enc [facility] Medical Group Multispecialty Care - [facility] [address], [address] [place] [address] Eliza, [facility] Provider CPAP Social History Tobacco Use Types Packs/Day Years Used Date Smoking Tobacco: Every Day Cigarettes 0.3 40 Smokeless Tobacco: Never Comments:want to quit but gary s alot of stress right [phone] smoking about 3-4 cigaretts a day Alcohol [...] st Contact Info) Description 03/31/2024 8:40 AM WAREHOUSE LOADER Office Visit [facility] Family & Internal [facility] [address] [place] [address] Sandi Alfaro APNP [address] [place] [address] 05/05/2024 8:00 AM WAREHOUSE LOADER Office Visit [facility] Family & Internal [facility] [address] [place] [address] Sandi Alfaro APNP [address] [place] [address] documented as of this encounter Visit Diagnoses Not on filedocumented in this encounter Additional Health Concerns Infection Onset Date Last Indicated Resolved Time COVID-19 Rule Out 05/12/2023 05/12/2023 05/13/2023 12:01 AM CDT Influenza - Seasonal 05/14/2023 05/14/2023 024 12:32 AM CDT Assessment Noted Time PHQ-9 Depression Total Score: 7 01/24/20 21 1:37 PM WAREHOUSE LOADER documented as of this encounter Care Teams Railroader Relationship Specialty Start Date End Date Sandi Alfaro APNP Family & Internal Medicine [address] [address] PCP - General ADVANCED PRACTICE RAISED PRINTER 04/28/17 Sandi Alfaro APNP [facility] [place] [address] PCP - Med Group - MSSP Attributed Provider 03/02/15 03/01/22 Cheryl Huston, strip feeder (Ambulatory) REGISTERED NURSE 03/23/19 documented as of this encounter
--- OUTSIDE RECORDS SUMMARY | 2024-03-29 11:18 | XMS_ITS | Encounter Summary ---
Author Organization [facility] Address [address] [place] [address]. [place], [place] [id number] [place] [address] Care Team Providers Care Returns Clerk Name Role Phone Sandi Alfaro Primary Care Provider [phone] Cheryl Huston RN Unavailable Unavailable Encounter Details Date Type Department Care Team (Late Contact Info) Description 08/27/2022 MyChart Message Enc [facility] Medical [facility] [address] [place], [place] [address] [facility] Provider Air Quality Message Social History Tobacco [...] st Contact Info) Description 03/31/2024 8:40 AM HOME HEALTH OUTREACH COORDINATOR Office Visit [facility] Medical [facility] Family & Internal Medicine [address] [phone] Sandi Alfaro APNP [address] [place] [address] 05/05/2024 8:00 AM HOME HEALTH OUTREACH COORDINATOR Office Visit [facility] Medical Group Family & Internal Medicine - [address] [phone] Sandi Alfaro APNP [address] [place] [address] documented as of this encounter Visit Diagnoses Not on filedocumented in this encounter Additional Health Concerns Infection Onset Date Last Indicated Resolved Time COVID-19 Rule Out 05/12/2023 05/12/2023 05/13/2023 12:01 AM CDT Influenza - Seasonal 05/14/2023 05/14/2023 024 12:32 AM CDT Assessment Noted Time PHQ-9 Depression Total Score: 13 023 10:48 AM CDT documented as of this encounter Care Teams Returns Clerk Relationship Specialty Start Date End Date Sandi Alfaro APNP Family & Internal Medicine [address] [address] [place] [address] PCP - General [employer]ACTICE LABORER/GRADE CHECK 04/28/17 Cheryl Huston decorative engraver (Ambulatory) REGISTERED NURSE 03/23/19 documented as of this encounter
--- OUTSIDE RECORDS SUMMARY | 2024-03-29 11:18 | XMS_ITS | Clinical Summary ---
Author Organization [facility] [address] Address [address] [place] [address] Care Team Providers Care Home Health Travel Pt Name Role Phone Sandi Alfaro Primary Care [...] 24 hr tabletIndicatio ns:Coronary artery disease of [place] artery of [place] heart with stable angina pectoris (HCC) TAKE [...] implantable loop record er 10/13/2017 Overview (10/13/2017): [employer] Reveal Loop Recorder. Dx; Cryptogenic Stroke. DOI 10/12/[address] Willoughby. [email or web address] remote monitoring. TIA (transient ischemic attack) 10/06/2017 S/P coronary artery stent placement 12/17/2016 Morbid obesity with BMI of 45.0-49.9, adult ([facility]) 08/13/2016 Mixed anxiety depressive disorder 05/01/2015 Overview (06/07/2016): Anxiety and depression Coronary artery disease of [place] artery of [place] heart with stable angina pectoris 02/20/2015 Overview (06/07/2016): Coronary artery disease involving [place] coronary artery of [place] heart with other form of angina pectoris CVA, old, hemiparesis ([facility]) 02/20/2015 Overview (06/07/2016): CVA, old, hemiparesis Mixed diabetic hyperlipidemi a associated with type 2 diabetes mellitus ([facility]) 02/20/2015 Overview (06/07/2016): DM type 2 with diabetic dyslipidemia Hypertensive heart disease with congestive heart failure 02/20/2015 Overview (06/07/2016): Hypertensive heart disease with diastolic heart failure TAMIR on CPAP 10/17/2014 Overview (06/07/2016): TAMIR on CPAP Diabetes mellitus 10/17/2014 Overview (06/07/2016): DM (diabetes mellitus) Hypertension associated with diabetes 10/17/2014 Overview (06/07/2016): HTN (hypertension), benign Encounters Date Type Department Care Team Description 03/29/[address] [facility] Medical [facility] Cardiology [address] [place] [address] Ifrah Kahn NP 03/28/2024 9:00 AM SNAPPER ON Office Visit [facility] [address] [place] [address] Ifrah Kahn NP Coronary artery disease of [place] artery of [place] heart with stable angina pectoris (HCC) (Primary Dx); CVA, old, hemiparesis (CMS/HCC) (HCC); Hypertension associated with diabetes (HCC); Recently quit using tobacco 03/24/2024 Telephone [facility] [address] [facility] [address] [place] [address] Fernando Modi MD Chest Pain 01/18/2024 9:00 AM SNAPPER ON Office Visit [facility] [address] [facility] [address] [place] [address] Fernando Modi MD Coronary artery disease of [place] artery of [place] heart with stable angina pectoris (HCC) (Primary Dx); Chronic heart failure with preserved ejection fraction (CMS/HCC) (HCC); Mixed diabetic hyperlipidemia associated with type 2 diabetes mellitus (CMS/HCC) (HCC); Hypertensive heart disease with chronic diastolic congestive heart failure (CMS/HCC) (HCC) 01/18/2024 Orders Only [facility] [address] [facility] [address] [place] [phone] Provider, MD Stuart from Last 3 Months Surgical History Surgery [...] on file Legal Sex Male 3:15 AM SNAPPER ON Gender Identity Male 09/03/2018 6:22 AM CDT Sexual Orientation Straight 09/03/2018 6: 22 AM CDT Obstetrics History Last Filed Vital Signs Vital Sign Reading Time Taken Comments Blood Pressure 132/72 03/28/2024 9:10 AM SNAPPER ON Pulse 82 01/18/2024 8:53 AM SNAPPER ON Temperature - - Respiratory Rate - - Oxygen Saturation 96% 03/28/2024 9:10 AM SNAPPER ON Inhaled Oxygen Concentration - - Weight 137.4 kg (303 lb) 03/28/2024 9:10 AM SNAPPER ON Height 182.9 cm (6') 03/28/2024 9:10 AM SNAPPER ON Body Mass Index 41.09 03/28/2024 9:10 AM SNAPPER ON Plan of Treatment Health Maintenance Due Date [...] Recently Relevant to Health Maintenance Insurance MEDICARE [facility] MEDICARE [facility] Address: [address] [address] [place] [address] MEDICARE [facility] MEDICARE Care Teams Home Health Travel Pt Relationship Specialty Start Date End Date Sandi Alfaro PA PCP - General Nurse Practitioner 08/21/17
--- OUTSIDE RECORDS SUMMARY | 2024-03-29 11:18 | XMS_ITS | Patient Health Summary ---
Author Organization [facility] Address [address] [place] [address] Care Team Providers Care Dining Room Hostess Name Role Phone Sandi Alfaro OB/GYN PHYSICIAN-X RAY OPERATOR Primary Care Provider Note from [facility],non-owned Affiliates and Associated Physician Practices is amultiple site organization consisting of ambulatory clinics and hospital sitesin [place], [place], [place] and [place]. This disclosure is being madepursuant to the Care Everywhere program and may not contain all information available regarding this patient. Last updated 17.[facility] Allergies No known active allergies Medications [...] of5 resultswithin the time period is included. [facility] Glucose WB/POC 131(H) 70 - 115 mg/dL 05/28/2018 6:57 AM CDT [facility] Specimen Type Arterial/C apillary 05/28/2018 6:57 AM CDT [facility] Blood BLOOD SPECIMEN / Unknown 05/28/2018 6:52 AM CDT 05/28/2018 6:57 AM CDT Narrative [facility] - 05/28/2018 6:57 AM CDT PRINCIPAL HARDWARE ARCHITECT: MARIZOL ??JHONY Erick Vera MD LAB - POINT OF CARE ORDERABLES Performing Organization Address [facility]/State/[facility] Co de Phone Number [address] [phone] * PLATELET ANTIBODY DRUG DEPENDENT (05/28/2018 4:14 AM CDT) [facility] Patient Serum Without Drug Comment 06/16/2018 4:11 PM CDT [facility] ([facility]) Comment:Reference lab report sent via fax. Blood BLOOD SPECIMEN / Unknown Lab Venipuncture / Unknown 05/28/2018 4:14 AM CDT 05/28/2018 4:32 AM CDT [facility] ([facility]) - 06/16/2018 4:11 PM CDT Performed at: ??01 - [facility] [employer] [facility] [address] [place] [address] ??[phone] Non Destructive Evaluation Manager: Husam Reyes MD, Phone: ??[phone] Tone Brower MD LAB - COAGULATION OR DERABLES [facility] ([facility]) [address] [place] [address] * (ABNORMAL) CBC W/O DIFFERENTIAL (05/27/2018 11:30 PM CDT) Only the most recent of4 resultswithin the time period is included. WBC 7.1 3.5 - 10.5 10? 3 /uL 05/28/2018 12:01 AM [facility] RBC 4.15(L) 4.30 - 5.70 10? 6 /uL 05/28/2018 12:01 AM [facility] Hemoglobin 12.8(L) 13.5 - 17.5 g/dL 05/28/2018 12:01 AM [facility] Hematocrit 37.1(L) 39.0 - 50.0 % 05/28/2018 12:01 AM [facility] MCV 89.4 81.0 - 97.0 fL 05/28/2018 12:01 AM [facility] MCH 30.8 28.0 - 34.0 pg 05/28/2018 12:01 AM [facility] MCHC 34.5 32.0 - 36.0 g/dL 05/28/2018 12:01 AM [facility] Platelet Count 135(L) 150 - 400 10? 3 /uL 05/28/2018 12:01 AM [facility] RDW-SD 44.0 36.0 - 50.0 fL 05/28/2018 12:01 AM [facility] RDW-CV 13.5 11.2 - 14.8 % 05/28/2018 12:01 AM [facility] MPV 11.4 9.3 - 12.8 fL 05/28/2018 12:01 AM [facility] nRBC Absolute 0.00 0 10? 3 /uL 05/28/2018 12:01 AM [facility] nRBC Auto 0.0 0 /100 WBC 05/28/2018 12:01 AM [facility] Blood BLOOD SPECIMEN / Unknown Lab Venipuncture / Unknown 05/27/2018 11:30 PM CDT 05/27/2018 11:55 PM CDT Mehul Floyd MD LAB - HEMATOLOGY ORD ERABLES [facility] [address] [phone] * BASIC METABOLIC PANEL (CALCIUM TOTAL) (05/27/2018 11:30 PM CDT) Only the most recent of5 resultswithin the time period is included. BUN 17 7 - 26 mg/dL 05/28/2018 12:17 AM [facility] Creatinine 1.1 0.6 - 1.2 mg/dL 05/28/2018 12:17 AM [facility] Sodium 137 136 - 145 mmol/L 05/28/2018 12:17 AM [facility] Potassium 4.0 3.5 - 4.5 mmol/L 05/28/2018 12:17 AM [facility] Chloride 103 98 - 107 mmol/L 05/28/2018 12:17 AM [facility] CO2 24 22 - 29 mmol/L 05/28/2018 12:17 AM [facility] Glucose 102 70 - 115 mg/dL 05/28/2018 12:17 AM [facility] Calcium 9.4 8.4 - 10.2 mg/dL 05/28/2018 12:17 AM [facility] Anion Gap 14 8 - 18 05/28/2018 12:17 AM [facility] BUN/Creatinine Ratio 15 7 - 23 05/28/2018 12:17 AM [facility] Osmolality Calculated 286 270 - 300 mOsm/kg 05/28/2018 12:17 AM [facility] eGFR >60 >60 mL/min/1.7 3 m2 05/28/2018 12:17 AM [facility] Blood BLOOD SPECIMEN / Unknown Lab Venipuncture / Unknown 05/27/2018 11:30 PM CDT 05/27/2018 11:55 PM CDT Mehul Floyd MD LAB - CHEMISTRY LORENZA BULLARD Performing Organization Address [facility] [place] [address], [place] [phone] * PHOSPHORUS BLOOD (05/27/2018 11:30 PM CDT) Only the most recent of4 resultswithin the time period is included. Phosphorus 3.2 2.3 - 4.7 mg/dL 05/28/2018 12:17 AM CDT [facility] Blood BLOOD SPECIMEN / Unknown Lab Venipuncture / Unknown 05/27/2018 11:30 PM CDT 05/27/2018 11:55 PM CDT Mehul Floyd MD LAB - CHEMISTRY LORENZA BULLARD Performing Organization Address [facility] [place] [address], [place] [phone] * MAGNESIUM BLOOD (05/27/2018 11:30 PM CDT) Only the most recent of4 resultswithin the time period is included. Magnesium 1.7 1.6 - 2.6 mg/dL 05/28/2018 12:17 AM CDT [facility] Blood BLOOD SPECIMEN / Unknown Lab Venipuncture / Unknown 05/27/2018 11:30 PM CDT 05/27/2018 11:55 PM CDT Mehul Floyd MD LAB - CHEMISTRY LORENZA BULLARD Performing Organization Address [facility] [place] [address], [place] [phone] * MRI BRAIN WO CONTRAST (05/27/2018 12:51 [...] the time period is included. Pathologist [facility] Troponin I <0.010 <0.032 ng/mL 05/27/2018 9:02 AM CDT [facility] Blood BLOOD SPECIMEN / Unknown Venipuncture / Unknown 05/27/2018 8:28 AM CDT 05/27/2018 8:28 AM CDT Mehul Floyd MD LAB - CHEMISTRY ORDE RABTRAY Performing Organization Address [facility] Co de Phone Number [address] [phone] * HIV-1 HIV-2 ANTIGEN/ANTIBODY (05/26/2018 4:21 PM CDT) [facility] HIV Antigen/Antibod y 1 & 2 Non-reacti ve Non-react kendell 05/26/2018 5:12 PM CDT [facility] Comment: Neither HIV-1 p24 Antigen nor HIV-1/HIV-2 Antibodies are detected. ? Blood BLOOD SPECIMEN / Unknown Venipuncture / Unknown 05/26/2018 4:21 PM CDT 05/26/2018 4:26 PM CDT Jim Ann MD LAB - HEMATOLOGY ORD ERABLES Performing Organization Address City/[facility]/[place] [address], [place] [phone] * HEPATITIS C AB SCREEN RFLX NAAT QUANT (05/26/2018 4:21 PM CDT) Pathologist [facility] Hepatitis C Antibody Non-react kendell Non-reac tive [...] Ann MD LAB - CHEMISTRY LORENZA BULLARD [facility] Organization Address City/State/ZIP Co de Phone Number [facility] [address] [place] [address] * DRUG SCREEN TOX URINE PANEL (05/26/2018 3:09 PM CDT) [facility] Amphetamines Screen Urine Negative Negative: < 1000 ng/mL 05/26/2018 3:23 PM CDT [facility] Barbiturates Screen Urine Negative Negative: < 200 ng/mL 05/26/2018 3:23 PM T [facility] Benzodiazepine Screen Urine Negative Negative: < 200 ng/mL 05/26/2018 3:23 PM CDT [facility] Opiates Urine Negative Negative: < 300 ng/mL 05/26/2018 3:23 PM T [facility] Cocaine Metabolites Urine Negative Negative: < 300 ng/mL 05/26/2018 3:23 PM CDT [facility] Phencyclidine Screen Urine Negative Negative: < 25 ng/ml 05/26/2018 3:23 PM T [facility] Cannabinoids Screen Urine Negative Negative: <50 ng/mL 05/26/2018 3:23 PM T [facility] Methadone Screen Urine Negative Negative: < 300 ng/mL 05/26/2018 3:23 PM T [facility] Urine URINE / Unknown Collection / Unknown 05/26/2018 3:09 PM CDT 05/26/2018 3:09 PM CDT Narrative [facility] - 05/26/2018 3:23 PM CDT The Urine Toxicology Screening Panel does not screen for Propoxyphene, Meprobamate, Carisoprodol, Trazodone, venr-zpx-htfuhdw medications and/or volatiles (Acetone, Isopropanol, Methanol or Ethylene Glycol). Ethanol, Salicylate, Acetaminophen, Tricyclic Antidepressants and several therapeutic drugs may be individually assayed in serum or plasma specimen. Toxicology testing by the [facility] is an aid to medical diagnosis and treatment of patients. No documented chain of custody was maintained. Results are intended to be used for clinical purposes only. ? Mehul Floyd MD LAB - URINE CHEMISTR Y ORDERABLES [facility] [address] [place] [address], [place] [phone] * EKG 12-LEAD (05/26/2018 2:35 PM CDT) Only the most recent of3 resultswithin the time period is included. Ventricular Rate 78 BPM [facility] MUSE Atrial Rate 78 BPM [facility] MUSE P-R Interval 152 ms [facility] QRS Duration ms 96 ms [facility] Q-T Interval ms 422 ms [facility] QTC Calculation (Bezet) 481 ms [facility] Calculated P [place] 47 degrees [facility] Calculated R [place] 2 degrees [facility] Calculated T [place] 36 degrees [facility] Interpretation EKG NORMAL SINUS RHYTHM INCOMPLETE RIGHT BUNDLE BRANCH BLOCK PROLONGED QT ABNORMAL ECG WHEN COMPARED WITH ECG OF 20-AUG-2016 05:38, NO SIGNIFICANT CHANGE WAS FOUND Confirmed by Max INGRAM, DEMARCUS ([id number]), supervising editor trailer Jax Colmenares ([id number]) on 06/09/2018 10:06:25 PM [facility] 05/26/2018 2:35 PM CDT 06/09/2018 10:06 PM CDT Ruiz Chávez MD ECG ORDERABLES Performing Organization Address City/[facility]/ZIP Co de Phone Number [facility] * TYPE + SCREEN PANEL (05/26/2018 2:00 PM CDT) Only the most recent of2 resultswithin the time period is included. Antibody Screen NEG 9 3:08 PM CDT [facility] ABO Rh A POS 05/26/2018 3:08 PM CDT [facility] Blood Bank BLOOD SPECIMEN / Unknown Venipuncture / Unknown 05/26/2018 2:00 PM CDT 05/26/2018 2:13 PM CDT Ruiz Chávez MD LAB - BLOOD BANK ORD ERABLES Performing Organization Address [facility] de Phone Number [facility] [address] [place] [address] * PT-INR [facility] (05/26/2018 1:59 PM CDT) Only the most recent of2 resultswithin the time period is included. PT 12.8 12.1 - 14.8 Seconds 05/26/2018 2:14 PM CDT [facility] INR 1.0 See Comment 05/26/2018 2:14 PM CDT [facility] Comment: The suggested therapeutic range for standard coumadin (warfarin) therapy is an INR of 2.0-3.0. For high-risk patients (Mechanical Mitral Valve Prosthesis, etc.), the suggested prophylactic therapeutic range is an INR of 2.5-3.5. Blood BLOOD SPECIMEN / Unknown Venipuncture / Unknown 05/26/2018 1:59 PM CDT 05/26/2018 2:05 PM CDT Ruiz Chávez MD LAB - COAGULATION OR DERABLES Performing Organization Address [facility] Co de Phone Number [facility] [address] [place] [address] * (ABNORMAL) HEMOGLOBIN A1C (05/26/2018 1:59 PM CDT) Only the most recent of2 resultswithin the time period is included. Hemoglobin A1c 6.9(H) 4.4 - 6.3 % 05/27/2018 1:45 PM CDT [facility] Comment:Hemoglobin variant d etected. Abnormal hemoglobin may not form glycated product at the same rate as hemoglobin A and/or hemoglobin variant may interfere with the accurate measurement of HbA1C. Consider measurement of HbA1C by alternative method. Recommend hemoglobin electrophoresis to evaluate the variant hemoglobin if clinically indicated. Estimated Average Glucose 151 mg/dL 05/27/2018 1:45 PM CDT [facility] Comment: HbA1c Interpretation: Treatment target values recommended by ADA and other clinical organizations should be used to evaluate metabolic control in patients. Treatment Target Values: Normal : < 5.7% Pre-diabetes: 5.7-6.4% Diabetes: Equal to or greater than 6.5% Reference: [place] [employer] Standards of Care in Diabetes -2014 In patients 70 years and older consider HbA1c target range of 7.0-7.5% Reference: ??Diabetes Mellitus in Older People: Position Statement on behalf of the International Association of Gerontology and Geriatrics (IAGG), the Diabetes Working Libertarian for Older People (EDWPOP), and the International Task Force of Experts in Diabetes. ??Anil Irvin et al. J [place] [employer]. 2012 Test results diagnostic of diabetes should be repeated for confirmation. The Sebia Capillary 2 assay for the measurement of HbA1c is a National Glycohemoglobin Standardization Program (NGSP)certified method. Blood BLOOD SPECIMEN / Unknown Venipuncture / Unknown 05/26/2018 1:59 PM CDT 05/26/2018 2:19 PM CDT Mehul Floyd MD LAB - CHEMISTRY LORENZA [facility] Organization Address City/State/ZIP Co de Phone Number [address] [phone] * (ABNORMAL) CBC W AUTO DIFFERENTIAL (05/26/2018 1:59 PM CDT) Only the most recent of3 resultswithin the time period is included. WBC 8.0 3.5 - 10.5 10? 3 /uL 05/26/2018 2:08 PM [facility] RBC 4.70 4.30 - 5.70 10? 6 /uL 05/26/2018 2:08 PM [facility] Hemoglobin 14.3 13.5 - 17.5 g/dL 05/26/2018 2:08 PM [facility] Hematocrit 42.0 39.0 - 50.0 % 05/26/2018 2:08 PM [facility] MCV 89.4 81.0 - 97.0 fL 05/26/2018 2:08 PM [facility] MCH 30.4 28.0 - 34.0 pg 05/26/2018 2:08 PM [facility] MCHC 34.0 32.0 - 36.0 g/dL 05/26/2018 2:08 PM [facility] Platelet Count 158 150 - 400 10? 3 /uL 05/26/2018 2:08 PM [facility] RDW-SD 44.7 36.0 - 50.0 fL 05/26/2018 2:08 PM [facility] RDW-CV 13.7 11.2 - 14.8 % 05/26/2018 2:08 PM [facility] MPV 10.9 9.3 - 12.8 fL 05/26/2018 2:08 PM [facility] nRBC Absolute 0.00 0 10? 3 /uL 05/26/2018 2:08 PM [facility] nRBC Auto 0.0 0 /100 WBC 05/26/2018 2:08 PM [facility] Neutrophils % 69.0 35.0 - 70.0 % 05/26/2018 2:08 PM [facility] Lymphocytes % 16.7(L) 19.7 - 55.1 % 05/26/2018 2:08 PM [facility] Monocytes % 9.7 3.0 - 15.0 % 05/26/2018 2:08 PM [facility] Eosinophils % 4.1 0.0 - 6.0 % 05/26/2018 2:08 PM [facility] Basophil % 0.1 0.0 - 1.5 % 05/26/2018 2:08 PM [facility] Neutrophils Absolute 5.5 1.6 - 7.0 10? 3 /uL 05/26/2018 2:08 PM T [facility] Lymphocyte Absolute 1.3 0.8 - 2.9 10? 3 /uL 05/26/2018 2:08 PM [facility] Monocytes Absolute 0.78(H) 0.14 - 0.66 10? 3 /uL 05/26/2018 2:08 PM [facility] Eosinophils Absolute 0.33 0.00 - 0.45 10? 3 /uL 05/26/2018 2:08 PM [facility] Basophils Absolute 0.01 0.00 - 0.06 10? 3 /uL 05/26/2018 2:08 PM [facility] Immature Granulocytes % 0.4 0.0 - 1.0 % 05/26/2018 2:08 PM [facility] Blood BLOOD SPECIMEN / Unknown Venipuncture / Unknown 05/26/2018 1:59 PM CDT 05/26/2018 2:05 PM CDT Ruiz Chávez MD LAB - HEMATOLOGY ORD ERABLES [facility] [address] [place] [address] * (ABNORMAL) COMPREHENSIVE METABOLIC PANEL (05/26/2018 1:59 PM CDT) BUN 25 7 - 26 mg/dL 05/26/2018 2:23 PM [facility] Creatinine 1.1 0.6 - 1.2 mg/dL 05/26/2018 2:23 PM [facility] Sodium 138 136 - 145 mmol/L 05/26/2018 2:23 PM [facility] Potassium 4.1 3.5 - 4.5 mmol/L 05/26/2018 2:23 PM [facility] Chloride 101 98 - 107 mmol/L 05/26/2018 2:23 PM [facility] CO2 26 22 - 29 mmol/L 05/26/2018 2:23 PM [facility] Glucose 109 70 - 115 mg/dL 05/26/2018 2:23 PM [facility] Calcium 9.9 8.4 - 10.2 mg/dL 05/26/2018 2:23 PM [facility] Protein Total 7.8 6.0 - 8.3 g/dL 05/26/2018 2:23 PM [facility] Albumin 4.0 3.4 - 5.0 g/dL 05/26/2018 2:23 PM [facility] Bilirubin Total 0.8 0.2 - 1.2 mg/dL 05/26/2018 2:23 PM [facility] Alkaline Phosphatase 57 40 - 150 Units/L 05/26/2018 2:23 PM [facility] ALT 56(H) 0 - 55 Units/L 05/26/2018 2:23 PM [facility] AST 44(H) 5 - 34 Units/L 05/26/2018 2:23 PM [facility] Anion Gap 15 8 - 18 05/26/2018 2:23 PM [facility] BUN/Creatinine Ratio 23 7 - 23 05/26/2018 2:23 PM [facility] Osmolality Calculated 291 270 - 300 mOsm/kg 05/26/2018 2:23 PM [facility] Albumin/Globulin Ratio 1.1 1.1 - 2.3 05/26/2018 2:23 PM [facility] eGFR >60 >60 mL/min/1.7 3 m2 05/26/2018 2:23 PM [facility] Blood BLOOD SPECIMEN / Unknown Venipuncture / Unknown 05/26/2018 1:59 PM CDT 05/26/2018 2:05 PM T Ruiz Chávez MD LAB - CHEMISTRY LORENZA BULLARD [facility] Organization Address City/State/ZIP Co de Phone Number [address] [phone] * (ABNORMAL) LIPID PROFILE (05/26/2018 1:59 PM CDT) Only the most recent of2 resultswithin the time period is included. Cholesterol Total 125 <200 mg/dL 05/26/2018 2:46 PM [facility] HDL 26(L) >40 mg/dL 05/26/2018 2:46 PM CDT [facility] Comment: ATP III Classification of HDL Cholesterol: ? <40 mg/dL: ??Considered a major risk factor. ? >60 mg/dL: ??Considered a negative risk factor. ? LDL Calculated 38 <100 mg/dL 05/26/2018 2:46 PM CDT [facility] Comment: ATP III Classification of LDL Cholesterol: ?<100 mg/dL: ??Optimal ? 100 - 129 mg/dL: ??Near Optimal/Above Optimal ? 130 - 159 mg/dL: ??Borderline High ? 160 - 189 mg/dL: ??High ?>190 mg/dL: ??Very High ? Triglycerides 307(H) <150 mg/dL 05/26/2018 2:46 PM [facility] Comment: ATP III Classification of Triglycerides: ?<150 mg/dL: ??Normal ? 150 - 199 mg/dL: ??Borderline High ? 200 - 400 mg/dL: ??High ?>500 mg/dL: ??Very High Blood BLOOD SPECIMEN / Unknown Venipuncture / Unknown 05/26/2018 1:59 PM CDT 05/26/2018 2:19 PM CDT Mehul Floyd MD LAB - CHEMISTRY LORENZA BULLARD Performing Organization Address City/State/[facility] Co de Phone Number [address] [phone] * CT ANGIO BRAIN NECK STROKE (05/26/2018 [...] stenosis. Report dictated by Shaun Garland MD (vice president financial). I, Dr. YOSELYN MURILLO have personally reviewed [...] Outside hospital CT head dated 05/26/2018 from [facility], CT head dated 05/19/2018, MRI brain dated [...] the intracranial vertebrals, basilar artery, and the registered nurse supervisor appear unremarkable. CTA NECK: Noted normal variant [...] Outside hospital CT head dated 05/26/2018 from [facility], CT head dated 05/19/2018, MRI brain dated [...] circulation, the intracranial vertebrals, basilarartery, and the registered nurse supervisor appear unremarkable. CTA NECK: Noted normal variant [...] vertebralstenosis. Report dictated by Shaun Garland MD (vice president financial). Dr. YOSELYN Roman have personally reviewed and [...] stenosis. Report dictated by Shaun Garland MD (vice president financial). Dr. YOSELYN Roman have personally reviewed and [...] Outside hospital CT head dated 05/26/2018 from [facility], CT head dated 05/19/2018, MRI brain dated [...] the intracranial vertebrals, basilar artery, and the registered nurse supervisor appear unremarkable. CTA NECK: Noted normal variant [...] Outside hospital CT head dated 05/26/2018 from [facility], CT head dated 05/19/2018, MRI brain dated [...] circulation, the intracranial vertebrals, basilarartery, and the registered nurse supervisor appear unremarkable. CTA NECK: Noted normal variant [...] vertebralstenosis. Report dictated by Shaun Garland MD (vice president financial). I, Dr. YOSELYN MURILLO have personally reviewed and interpreted this examination/study. This report was electronically signed by YOSELYN MURILLO on 05/26/2018 2:09 PM . Ruiz Chávez MD CT ORDERABLES * (ABNORMAL) GLUCOSE ACCUCHECK (08/21/2016 12:30 PM CDT) Only the most recent of6 resultswithin the time period is included. Glucose, Fingerstick 154(H) 70-115mg/d L mg/dL [facility] RALTrina (BEAKER) Comment:Torpedoman'S Mate: YUNG CARABALLO 08/21/2016 12:3 0 PM CDT Gera Magallon MD LAB - CHEMISTRY LORENZA BULLARD [facility] DIEUDONNE NUNEZ) * CT HEAD WO [...] CK Total 87 30 - 200 Units/L [facility] CK-MB 0.7 0.0 - 6.6 ng/mL [facility] Blood specimen (specimen) BLOOD SPECIMEN / Unknown 08/20/2016 9:00 AM CDT 08/20/2016 9:14 AM CDT Bishop Walker MD LAB - CHEMISTRY LORENZA [facility] Organization Address City/State/ZIP Co de Phone Number [address] [phone] * DRUG ABUSE PANEL 10-20+ETHANOL URINE NO CONFIRM (08/20/2016 7:07 AM CDT) Amphetamines Screen Urine Negative Negative: < 1000 ng/mL [facility] Barbiturates Screen Urine Negative Negative: < 200 ng/mL [facility] Benzodiazepine Screen Urine Negative Negative: < 200 ng/mL [facility] Opiates Urine Negative Negative: < 300 ng/mL [facility] Cocaine Metabolites Urine Negative Negative: < 300 ng/mL [facility] Phencyclidine Screen Urine Negative Negative: < 25 ng/ml [facility] Cannabinoids Screen Urine Negative Negative: <50 ng/mL [facility] Methadone Screen Urine Negative Negative: < 300 ng/mL [facility] Urine specimen (specimen) URINE / Unknown 08/20/2016 7:07 AM CDT 08/20/2016 7:22 AM CDT Narrative [facility] - 08/20/2016 8:03 AM CDT The Urine Toxicology Screening Panel does not screen for Propoxyphene, Meprobamate, Carisoprodol, Trazodone, oqqk-aoo-wczhtjf medications and/or volatiles (Acetone, Isopropanol, Methanol or Ethylene Glycol). Ethanol, Salicylate, Acetaminophen, Tricyclic Antidepressants and several therapeutic drugs may be individually assayed in serum or plasma specimen. Toxicology testing by the [facility] is an aid to medical diagnosis and treatment of patients. No documented chain of custody was maintained. Results are intended to be used for clinical purposes only. ? Bishop Walker MD LAB - URINE CHEMISTR Y ORDERABLES Performing Organization Address [facility] de Phone Number [address] [phone] * (ABNORMAL) HEPATIC FUNCTION PANEL (08/20/2016 5:28 AM CDT) Protein Total 6.8 6.0 - 8.3 g/dL [facility] Albumin 3.5 3.4 - 5.0 g/dL [facility] Bilirubin Total 0.8 0.2 - 1.2 mg/dL [facility] Bilirubin Conjugated 0.2 0.0 - 0.5 mg/dL [facility] Bilirubin Unconjugated 0.6 Unconjugated Bilirubin is a calculated value: Reference ranges have not been established. mg/dL [facility] Alkaline Phosphatase 55 40 - 150 Units/L [facility] ALT 69(H) 0 - 55 Units/L [facility] AST 46(H) 5 - 34 Units/L [facility] Albumin/Globulin Ratio 1.1 1.1 - 2.3 [facility] Blood specimen (specimen) BLOOD SPECIMEN / Unknown 08/20/2016 5:28 AM CDT 08/20/2016 5:32 AM CDT Bishop Walker MD LAB - CHEMISTRY ORDE RABLES Performing Organization Address [facility] [place] [address], [place] [phone] * ECHO W DOPPLER AND COLOR FLOW [...] CDT) APTT 27.5 23.0 - 38.4 Seconds [facility] Comment:Suggested therapeuti c range for full dose I.V. heparin therapy for venous thromboembolism is 66.0-91.0 seconds. Blood specimen (specimen) BLOOD SPECIMEN / Unknown 08/19/2016 6:11 PM CDT 08/19/2016 6:11 PM CDT Narrative [facility] - 08/19/2016 6:23 PM CDT Please ensure that the aPTT specimen is received in the clinical lab within 1 hour of collection if it is used for therapeutic heparin monitoring. Processing of heparinized specimens older than 1 hour may result in inaccurate test results. Is patient on Heparin, Argatroban or Dabigatran?->N Bishop Walker MD LAB - COAGULATION OR DERABLES [address] [phone] * CULTURE URINE (10/19/2013 11:31 AM CDT) Only the most recent of2 resultswithin the time period is included. Culture Urine No Growth of >=100 CFU/ml after 48 Hours [facility] Urine specimen (specimen) URINE SPECIMEN OBTAINED BY CLEAN CATCH PROCEDURE / Unknown 10/19/2013 11:31 AM CDT 10/19/2013 3:49 PM CDT Narrative [facility] - 10/21/2013 3:11 PM CDT EricSpecalexandrian#[id number] Eric Loc//Bed: 3 [facility]/316/02 CLN CATCH U @ CHRISTIANNE DATE was changed from 10/18/13 to 10/19/13 @ by DELICIA. Historical Provider MD LAB - MICROBIOLOG Y ORDERABLES [address] [phone] Care Teams Dining Room Hostess Relationship Specialty Start Date End Date Sandi Alfaro, OB/GYN PHYSICIAN-X RAY OPERATOR [address] [place] [address] PCP - General 08/27/21
--- OUTSIDE RECORDS SUMMARY | 2024-03-29 11:18 | XMS_ITS | Patient Health Record ---
Author Organization [facility] Address [address] [place], [place] [address] Care Team Providers Care Director Of Hospitality Name Role Phone PIETER WALSH Unavailable [phone] Sandi Alfaro Unavailable Unavailable Allergies No Known Allergies Reason For Referral No Information Medications Medication SIG (Take, Route, Frequency, Duration) Notes Start Date End Date Status betamethasone 0.5 MG/ML / clotrimazole 10 MG/ML Topical Cream CUTANEOUS betamethasone 0.5 MG/ML / clotrimazole 10 MG/ML Topical CreamOriginal Medicationbetamethasone 0.5 MG/ML / clotrimazole 10 MG/ML Topical Cream *Reorder from [employer] for eRx and Interaction Alerts* 7 Active betamethasone 0.5 MG/ML / clotrimazole 10 MG/ML Topical Cream [Lotrisone] CUTANEOUS betamethasone 0.5 MG/ML / clotrimazole 10 MG/ML Topical Cream [Lotrisone]Original Medicationbetamethasone 0.5 MG/ML / clotrimazole 10 MG/ML Topical Cream [Lotrisone] *Reorder from [employer] for eRx and Interacti 7 Active Augmented betamethasone 0.5 MG/ML Topical Cream CUTANEOUS Augmented betamethasone 0.5 MG/ML Topical CreamOriginal MedicationAugmented betamethasone 0.5 MG/ML Topical Cream *Reorder from [employer] for eRx and Interaction Alerts* 7 Active clobetasol propionate 0.0005 MG/MG Topical Ointment [Temovate] CUTANEOUS clobetasol propionate 0.0005 MG/MG Topical Ointment [Temovate]Original Medicationclobetasol propionate 0.0005 MG/MG Topical Ointment [Temovate] *Reorder from [facility] for eRx and Interaction Alerts* 7 Active clotrimazole 10 MG/ML Topical Cream CUTANEOUS clotrimazole 10 MG/ML Topical CreamOriginal Medicationclotrimazole 10 MG/ML Topical Cream *Reorder from [facility] for eRx and Interaction Alerts* 7 Active Immunizations Vaccine Route Administration Date Status Comme nts Influenza, live, intranasal Unknown 01/29/2023 Administ ered Vital Signs Height-cm 182.88 cm 06/01/2023 Weight-kg 149.69 kg 06/01/2023 Height 72.00 in 06/01/2023 Weight 330 lbs 06/01/2023 BMI 44.75 kg/m2 06/01/2023 Encounters Encounter Location Date Provider Diagnosis [facility] [place] [address] [place] [address] [id number] 03/28/2024 PIETER SNOOK Tinea unguium B35.1 ; Pain in right toe(s) M79.674 ; Pain in left toe(s) M79.675 ; Atherosclerosis of soboba arteries of extremities with intermittent claudication, bilateral legs I70.213 and Type 2 diabetes mellitus with other circulatory complications E11.59 [facility] [place] [address] [place] [address] [id number] 06/01/2023 PIETER SNOOK Tinea unguium B35.1 ; Pain in right toe(s) M79.674 ; Pain in left toe(s) M79.675 ; Atherosclerosis of soboba arteries of extremities with intermittent claudication, bilateral legs I70.213 and Type 2 diabetes mellitus with other circulatory complications E11.59 [facility] [place] [address] [place] [address] [id number] 08/24/2023 PIETER SNOOK Tinea unguium B35.1 ; Pain in right toe(s) M79.674 ; Pain in left toe(s) M79.675 ; Atherosclerosis of soboba arteries of extremities with intermittent claudication, bilateral legs I70.213 and Type 2 diabetes mellitus with other circulatory complications E11.59 [facility] [place] [address] [place] [address] [id number] 08/31/2023 PIETER SNOOK Nondisplaced unspeci fied fracture of unspecified lesser toe(s), initial encounter for closed fracture S92.506A and Pain in left foot M79.672 [facility] [place] [address] [place] [address] [id number] 09/14/2023 PIETER SNOOK Nondisplaced unspeci fied fracture of right lesser toe(s), subsequent encounter for fracture with routine healing S92.504D and Pain in left toe(s) M79.675 [facility] [place] [address] [address] [place] [address] [id number] 11/09/2023 PIETER SNOOK Tinea unguium B35.1 ; Pain in right toe(s) M79.674 ; Pain in left toe(s) M79.675 ; Atherosclerosis of soboba arteries of extremities with intermittent claudication, bilateral legs I70.213 and Type 2 diabetes mellitus with other circulatory complications E11.59 [facility] [place] [address] [address] [place] [address] [id number] 01/25/2024 PIETER SNOOK Tinea unguium B35.1 ; Pain in right toe(s) M79.674 ; Pain in left toe(s) M79.675 ; Atherosclerosis of soboba arteries of extremities with intermittent claudication, bilateral [...] any subungual debris and necrotic tissue removed 03/28/2024 Tinea unguium (ICD-10 - B35.1) NAIL DEBRIDEMENT: Nails 1-5 Bilateral were debrided extensively with nail nippers and emery board, reducing length and girth to pink healthy tissue with any subungual debris and necrotic tissue removed 01/25/2024 Pain in right toe(s) (ICD-10 - M79.674) 03/28/2024 Pain in right toe(s) (ICD-10 - M79.674) 11/09/2023 Pain in right toe(s) (ICD-10 - M79.674) 08/24/2023 Pain in left toe(s) (ICD-10 - M79.675) 06/01/2023 Pain in left toe(s) (ICD-10 - M79.675) 06/01/2023 Atherosclerosis of soboba arteries of extremities with intermittent claudication, bilateral legs (ICD-10 - I70.213) 11/09/2023 Pain in left toe(s) (ICD-10 - M79.675) 08/24/2023 Atherosclerosis of soboba arteries of extremities with intermittent claudication, bilateral legs (ICD-10 - I70.213) 03/28/2024 Pain in left toe(s) (ICD-10 - M79.675) 01/25/2024 Pain in left toe(s) (ICD-10 - M79.675) 01/25/2024 Atherosclerosis of soboba arteries of extremities with intermittent claudication, bilateral legs (ICD-10 - I70.213) 03/28/2024 Atherosclerosis of soboba arteries of extremities with intermittent claudication, bilateral legs (ICD-10 - I70.213) 11/09/2023 Atherosclerosis of soboba arteries of extremities with intermittent claudication, bilateral [...] as well as the Amputation Prevention Guide. 03/28/2024 Type 2 diabetes mellitus with other circulatory [...] Appt Details Provider Name:PIETER WALSH, 08:10:00 AM, [address], [facility], [place], [place], [id number], Insurance Providers Payer Name Payer Address Payer Phone Subscriber Number Group Number Insured Name Patient Relationship to Insured Coverage Start Date Coverage End Date Medicare Part B [place] [address] [place] [id number] KLAUDIA HALEY Self - patient is the insured
--- OUTSIDE RECORDS SUMMARY | 2024-03-29 11:18 | XMS_ITS | Referral Summary ---
Author Organization [facility] Address [address] [place] [address] Care Team Providers Care Locomotive Observer Name Role Phone Sandi Alfaro DIGITAL FIELD SERVICE TECHNICIAN-SOFTWARE DEVELOPER MANAGER Primary Care Provider Source Comments [facility],non-owned Affiliates and Associated Physician Practices is amultiple site organization consisting of ambulatory clinics and hospital sitesin [place], [place], [place] and [place]. This disclosure is being madepursuant to the Care Everywhere program and may not contain all information available regarding this patient. Last updated 17.[facility] Allergies No known active allergies Medications * [...] ve Non-react kendell 05/26/2018 5:12 PM CDT [facility] Comment: Neither HIV-1 p24 Antigen nor HIV-1/HIV-2 Antibodies are detected. ? Blood BLOOD SPECIMEN / Unknown Venipuncture / Unknown 05/26/2018 4:21 PM CDT 05/26/2018 4:26 PM CDT Jim Ann MD LAB - HEMATOLOGY ORD ERABLES [place] [id number] [address] [phone] * HEPATITIS C AB SCREEN RFLX NAAT [...] Ann MD LAB - CHEMISTRY [place] [address] [phone] from Last 3 Months or Most Recently Relevant to Health Maintenance Advance Directives * Full Code (Latest Code Status on File) Date Activated Date Inactivated Comments 05/26/2018 2:01 PM 05/28/2018 11:56 AM Care Teams Locomotive Observer Relationship Specialty Start Date End Date Sandi Alfaro, DIGITAL FIELD SERVICE TECHNICIAN-SOFTWARE DEVELOPER MANAGER [facility] [place] [address] PCP - General 08/27/21
--- OUTSIDE RECORDS SUMMARY | 2024-03-29 11:18 | XMS_ITS ---
Author Organization [facility] Address [address] [place], [place] [address] Care Team Providers Care Therapeutic Massage Technician Name Role Phone PIETER WALSH Unavailable [phone] Sandi Alfaro Unavailable Unavailable Allergies No Known Allergies REASON FOR VISIT Patient presents for at-risk [...] clotrimazole 10 MG/ML Topical Cream *Reorder from [employer] for eRx and Interaction Alerts* 7 Active betamethasone 0.5 MG/ML / clotrimazole 10 MG/ML Topical Cream [Lotrisone] CUTANEOUS betamethasone 0.5 MG/ML / clotrimazole 10 MG/ML Topical Cream [Lotrisone]Original Medicationbetamethasone 0.5 MG/ML / clotrimazole 10 MG/ML Topical Cream [Lotrisone] *Reorder from [employer] for eRx and Interacti 7 Active Augmented betamethasone 0.5 MG/ML Topical Cream CUTANEOUS Augmented betamethasone 0.5 MG/ML Topical CreamOriginal MedicationAugmented betamethasone 0.5 MG/ML Topical Cream *Reorder from [employer] for eRx and Interaction Alerts* 7 Active clobetasol propionate 0.0005 MG/MG Topical Ointment [Temovate] CUTANEOUS clobetasol propionate 0.0005 MG/MG Topical Ointment [Temovate]Original Medicationclobetasol propionate 0.0005 MG/MG Topical Ointment [Temovate] *Reorder from [employer] for eRx and Interaction Alerts* 7 Active clotrimazole 10 MG/ML Topical Cream CUTANEOUS clotrimazole 10 MG/ML Topical CreamOriginal Medicationclotrimazole 10 MG/ML Topical Cream *Reorder from [employer] for eRx and Interaction Alerts* 7 Active Encounters Encounter Location Date Provider Diagnosis [facility] [place] [address] [place], [place] [id number] 03/28/2024 PIETER SNOOK Tinea unguium B35.1 ; Pain in right toe(s) M79.674 ; Pain in left toe(s) M79.675 ; Atherosclerosis of kiana arteries of extremities with intermittent claudication, bilateral legs I70.213 and Type 2 diabetes mellitus with other circulatory complications E11.59 Assessments Encounter Date Diagnosis (ICD Code) Assessment Notes Treatment Notes Treatment Clinical Notes Section Notes 03/28/2024 Tinea unguium (ICD-10 - B35.1) NAIL DEBRIDEMENT: Nails 1-5 Bilateral were debrided extensively with nail nippers and emery board, reducing length and girth to pink healthy tissue with any subungual debris and necrotic tissue removed 03/28/2024 Pain in right toe(s) (ICD-10 - M79.674) 03/28/2024 Pain in left toe(s) (ICD-10 - M79.675) 03/28/2024 Atherosclerosis of kiana arteries of extremities with intermittent claudication, bilateral legs (ICD-10 - I70.213) 03/28/2024 Type 2 diabetes mellitus with other [...] problems develop. Provider Name:PIETER WALSH, 08:10:00 AM, [address], [address], [phone], Progress Notes * KLAUDIA HALEY BDOB:[birth year] (63 yo M)Acc No.[id number]:03/28/2024 Patient:?KLAUDIA HALEY B Provider:?Pieter Walsh DPM :1960???Age:63 Y???Sex:Male Ottoniel e:03/28/2024 [address] [facility] Subjective: * Chief Complaints: * ???1. Patient [...] Date last seen by Dr. Alfaro was March 2024., Initials LB , Patient presents to the office for diabetic foot care. Patient states that their nails are thickened, elongated and painful. Patient states that it is aggravated by shoe gear. Onset is gradual., Patient denies taking blood thinners., Date last seen by Dr. Yanez was July 2023., Initials JR.? * Medical History:? * Family History:?Father: PRN [...] betamethasone 0.5 MG/ML Topical Cream *Reorder from [employer] for eRx and Interaction Alerts*, Taking betamethasone 0.5 MG/ML / clotrimazole 10 MG/ML Topical Cream CUTANEOUS , Notes to Pharmacist: betamethasone 0.5 MG/ML / clotrimazole 10 MG/ML Topical CreamOriginal Medicationbetamethasone 0.5 MG/ML / clotrimazole 10 MG/ML Topical Cream *Reorder from [employer] for eRx and Interaction Alerts*, Taking betamethasone 0.5 MG/ML / clotrimazole 10 MG/ML Topical Cream [Lotrisone] CUTANEOUS , Notes to Pharmacist: betamethasone 0.5 MG/ML / clotrimazole 10 MG/ML Topical Cream [Lotrisone]Original Medicationbetamethasone 0.5 MG/ML / clotrimazole 10 MG/ML Topical Cream [Lotrisone] *Reorder from [employer] for eRx and Interacti, Taking clobetasol propionate 0.0005 MG/MG Topical Ointment [Temovate] CUTANEOUS , Notes to Pharmacist: clobetasol propionate 0.0005 MG/MG Topical Ointment [Temovate]Original Medicationclobetasol propionate 0.0005 MG/MG Topical Ointment [Temovate] *Reorder from [employer] for eRx and Interaction Alerts*, Taking clotrimazole 10 MG/ML Topical Cream CUTANEOUS , Notes to Pharmacist: clotrimazole 10 MG/ML Topical CreamOriginal Medicationclotrimazole 10 MG/ML Topical Cream *Reorder from [facility] for eRx and Interaction Alerts*, Medication List reviewed and reconciled with the patient * Allergies:?N.K.D.A. Objective: * Vitals:? * Examination: ???Physical Examination: [...] M79.674???3.?Pain in left toe(s) - M79.675???4.?Atherosclerosis of kiana arteries of extremities with intermittent claudication, bilateral [...] as the Amputation Prevention Guide. ?? * Follow Up:?10 - 12 weeks (Re ason: At-Risk Foot care, sooner if problems develop.) * Billing Information: * Visit Code:? * Procedure Codes:? * Electronic signature of PIETER WALSH DPM on 03/29/2024 at 11:18 AM EXERCISE SCIENTIST Sign off status: Pending * Provider:?Pieter Walsh DPM Date:?03/28/19 Generated for Michelle chi/Danielle/eTransmitting on:?03/29/2024 11:18 AM EXERCISE SCIENTIST History and Physical Notes * HPI (History [...] Date last seen by Dr. Alfaro was March 2024., Initials LB , Patient presents to the office for [...]
--- OUTSIDE RECORDS SUMMARY | 2024-03-29 11:20 | XMS_ITS | Encounter Summary ---
Author Organization [facility] - [facility] Address [address] [place] [address]. [place] [address] [place] [address] Care Team Providers Care Labor Delivery Rn Name Role Phone Sandi Alfaro Primary Care Provider [phone] Cheryl Huston RN Unavailable Unavailable Encounter Details Date Type Department Care Team (Late st Contact Info) Description 08/18/2023 [employer] Message Enc [facility] Medical Group Multispecialty Care - [address], [address] [place] [address] [employer], [facility] Provider Results Social History Tobacco Use Types Packs/Day Years Used Date Smoking Tobacco: Every Day Cigarettes 0.3 40 Smokeless Tobacco: Never Comments:currently smoking 2 -3 cigarettes a day Alcohol Use Standard Drinks/Week Comments Yes 0 (1 standard drink = 0.6 oz pur e alcohol) very rarely 6 beers/year [facility] Utilities Answer Date Recorded In the past 12 months has [employer], oil, or water [employer] threatened to shut off services in your [...] How often do you attend chur or oriental orthodox services? Never 05/12/2023 Do you belong to any clubs o r organizations such as jainism groups, unions, fraternal or athletic groups, or [...] Recorded Patient Health Questionnaire-2 Score 0 05/21/2023 [facility] - Occupational [...] place to sleep or slept in a longterm (including now)? No 05/12/2023 Sex and Gender [...] st Contact Info) Description 03/31/2024 8:40 AM PRODUCTION SUPPORT DEVELOPER Office Visit [facility] Family Internal [address] [phone] Sandi Alfaro APNP [address] [place] [address] 05/05/2024 8:00 AM PRODUCTION SUPPORT DEVELOPER Office Visit [facility] Internal [address] [phone] Sandi Alfaro APNP [address] [place] [address] documented as of this encounter Visit Diagnoses Not on filedocumented in this encounter Additional Health Concerns Assessment Noted Time PHQ-9 Depression Total Score: 0 05/21/19 24 11:21 AM CDT documented as of this encounter Care Teams Labor Delivery Rn Relationship Specialty Start Date End Date Sandi Alfaro APNP Family & Internal [address] [address] PCP - General [facility] [employer] [employer] 04/28/17 Cheryl Huston, desizing machine back tender (Ambulatory) REGISTERED NURSE 03/23/19 documented as of this encounter
--- OUTSIDE RECORDS SUMMARY | 2024-03-29 11:21 | XMS_ITS | Encounter Summary ---
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) Procedures NM MPI SPECT (Rest and/or Stress) Multiple Studies Ifrah Kahn NP [address] [place] [address] Phone: tel: fax: [facility] Medical Group Cardiology [address] [place] [phone] Phone: tel: fax: Referral ID Status Reason Start Date Expiration Date V isits Requested Visits Authorized [id number] Authorized 03/29/2024 04/28/2025 1 1 E RECEIVER * Cardiology (Routine) - Authorized Specialty Diagnoses / Procedures Referred By Contac t Referred To Contact Diagnoses 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) Procedures Transthoracic Echo (TTE) Complete W Doppler/CF Ifrah Kahn NP [address] [place] [address] Phone: tel: fax: Referral ID Status Reason Start Date Expiration Date V isits Requested Visits Authorized [id number] Authorized 03/29/2024 04/28/2025 1 1 E RECEIVER * Diagnostic Imaging (Routine) - Authorized Specialty Diagnoses / Procedures Referred By Contac t Referred To Contact Diagnoses 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) Procedures NM MPI SPECT (Rest and/or Stress) Multiple Studies Ifrah Kahn NP [address] [address] Phone: tel: fax: [facility] Medical Group Referral ID Status Reason Start Date Expiration Date V isits Requested Visits Authorized [id number] Authorized 03/29/2024 04/28/2025 1 1 E RECEIVER Encounter Details Date Type Department Care Team (Late st Contact Info) Description 03/29/2024 Telephone [facility] Medical [facility] Cardiology [address] [place] [phone] Ifrah Kahn NP [address] [address] Social History Tobacco Use Types Packs/Day Years Used Date Smoking Tobacco: Some Days Cigarettes 0.3 15 Smokeless Tobacco: Never Alcohol Use Standard Drinks/Week Comments Yes 0 (1 standard drink = 0.6 oz pur e alcohol) Sex and Gender Information Value Date Recorded Sex Assigned at Not on file Legal Sex Male 3:15 AM STORE RECEIVER Gender Identity Male 09/03/2018 6:22 AM CDT Sexual Orientation Straight 09/03/2018 6: 22 AM CDT documented as of this encounter Miscellaneous Notes * Telephone Encounter - Vivian Ruiz RN - 03/29/2024 10:59 AM STORE RECEIVER Spoke with pt, pt scheduled for TTE and Lexiscan stress test. Pt scheduled as 2 day stress test. Instructions reviewed, pt verbalizes understanding. Pt aware that echo is at [place] office and stress test in in [place] office. E RECEIVER * Addendum Note - Vivian Ruiz RN - 03/29/2024 10:57 AM CSTAddended by: VIVIAN RUIZ on: 03/29/2024 10:57 AM Modules accepted: Orders E RECEIVER * Telephone Encounter - Ifrah Kahn NP - 03/29/2024 10:15 AM STORE RECEIVER Please call the patient to let him know I talked to Dr. Modi about his chest pain. Dr. Modi recommends getting him scheduled for an echocardiogram and a Lexiscan nuclear stress test. I put the orders in epic. 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) Expected: 2024 (Approximate), Expires: 06/27/2025 NM MPI SPECT (Rest and/or Stress) Multiple Studies Imaging Schedule Routine, Read Routine (OP Routine) 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
--- OUTSIDE RECORDS SUMMARY | 2024-03-29 11:21 | XMS_ITS | Encounter Summary ---
Author Organization [facility] Address [address] [place] [address]. [place], [place] [id number] [place] [address] Care Team Providers Care Freight Air Brake Fitter Name Role Phone Sandi Alfaro Primary Care Provider [phone] Cheryl Huston RN Unavailable Unavailable Reason for Visit * Reason Comments Lab (SCAN) Encounter Details Date Type Department Care Team (Latest Contact Info) Description 03/18/2024 Scan HEALTH INFO SRVCS Scanned, Doc Med Group Lab (SCAN) Social History Tobacco Use Types Packs/Day Years Used Date Smoking Tobacco: Former Cigarettes 0.3 40 Smokeless Tobacco: Never Comments:currently smoking 1 -2 cigarettes a day Alcohol Use Standard Drinks/Week Comments Yes 0 (1 standard drink = 0.6 oz pur e alcohol) very rarely 6 beers/year [facility] Utilities Answer Date Recorded In the past 12 months has [employer], gas, oil, or water [employer] threatened to shut off services in your [...] often do you attend chur ch or gnosticist services? Never 05/12/2023 Do you belong to any clubs o r organizations such as yazidism groups, unions, fraternal or athletic groups, or [...] Recorded Patient Health Questionnaire-2 Score 0 05/21/2023 [facility] Answer Date Recorded [...] place to sleep or slept in a penitentiary (including now)? No 05/12/2023 Sex and Gender [...] Gerard, RN Active * Do you have serious difficulty walking or climbing stairs? Answer Date of Assessment Author Status Yes 05/12/2023 10:03 PM Tyrel Gerard RN Active * Do you have difficulty dressing or bathing? Answer Date of Assessment Author Status No 05/12/2023 10:03 PM Tyrel Gerard RN Active * Because of a physical, mental, or emotional condition, do you have difficulty doing errands alone such as visiting a doctor's office or shopping? Answer Date of Assessment Author Status Yes 05/12/2023 10:03 PM Tyrel Gerard RN Active documented as of this encounter [...] st Contact Info) Description 03/31/2024 8:40 AM DATA MIGRATION CONSULTANT Office Visit [facility] Family & Internal [address] [phone] Sandi Alfaro APNP [address] [place] [address] 05/05/2024 8:00 AM DATA MIGRATION CONSULTANT Office Visit [facility] Internal [address] [phone] Sandi Alfaro APNP [address] [place] [address] documented as of this encounter Procedures Procedure Name Priority Date/Time Associated Diagnosis Comments OUTSIDE LAB COVID-19 (SCAN ORDER) Routine 03/18/2024 documented in this encounter Results * OUTSIDE LAB COVID-19 (03/18/2024) CORONAVIRUS SARS COV 2 PCR (RESP) NOT DETECTED NOT DETECTED [facility] ON[facility] 03/18/2024 us Doc Med Group Scanned SCANNING Final Resu lt HS ONBASE documented in this encounter Visit Diagnoses Not on filedocumented in this encounter Additional Health Concerns Assessment Noted Time PHQ-9 Depression Total Score: 0 05/21/19 24 11:21 AM CDT documented as of this encounter Care Teams Freight Air Brake Fitter Relationship Specialty Start Date End Date Sandi Alfaro APNP Family & Internal Medicine [address] [address] PCP - General ADVANCED PRACTICE RETAIL SALES SPECIALIST 04/28/17 Cheryl Huston, staff analyst (Ambulatory) REGISTERED NURSE 03/23/19 documented as of this encounter
--- OUTSIDE RECORDS SUMMARY | 2024-03-29 11:21 | XMS_ITS | Clinical Summary ---
Author Organization [facility] Address [address] [place] [address]. [place] [address] [place] [address] Care Team Providers Care Marine Scientist Name Role Phone Sandi Alfaro Primary Care Provider [phone] Cheryl Huston RN Unavailable Unavailable Allergies No [...] complication, without long-term current use of insulin ([facility]/HCC HHS/HCC) USE 1 STRIP BY OTHER ROUTE [...] ons:Dyslipidemia associated with type 2 diabetes mellitus ([facility] HHS/HCC) Inject 3 mg into the skin [...] congestive heart failure, unspecified heart failure type ([facility] HHS/HCC) TAKE 1 TABLET BY MOUTH EVERYDAY AT BEDTIME 90 tablet 01/18/20 24 Active amLODIPine (NORVASC) 10 MG tabletIndications :Primary hypertension TAKE 1 TABLET BY MOUTH EVERY DAY 90 tablet 01/18/20 24 Active metFORMIN (GLUCOPHAGE) 1000 MG tabletIndications :Diabetic foot ([facility]) TAKE 1 TABLET BY MOUTH TWICE A [...] complication, without long-term current use of insulin ([facility]) Take 1 tablet (10 mg total) by [...] congestive heart failure, unspecified heart failure type ([facility]),Primary hypertension TAKE 1 TABLET BY MOUTH EVERY [...] congestive heart failure, unspecified heart failure type ([facility]),Primary hypertension Take 1 tablet (100 mg total) by mouth daily. 30 tablet 03/01/20 24 025 Discontinued Active Problems Problem Noted Date Diagnosed Date Polyneuropathy associated wi th underlying disease ([facility]) 12/16/2023 Morbid (severe) obesity due to excess calories ([facility]) 05/15/2022 Body mass index (BMI) 40.0-44.9, adult ([facility]) 05/15/2022 Acute hyperglycemia 05/17/2021 Anxiety 05/17/2021 Arthritis 05/17/2021 Atypical syncope 05/17/2021 Calculus of left ureter 05/17/2021 Eczema 05/17/2021 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/17/2021 [facility] current use of anticoagulant therapy 0 05/17/2021 Peripheral neuropathy 05/17/2021 Rectal polyp 05/17/2021 Swelling of left lower extremity 05/17/2021 Tear of medial meniscus of knee 05/17/2021 Tobacco abuse 05/17/2021 Pain due to ureteral stent 05/17/2021 Cigarette nicotine dependence without complicati on 03/14/2019 Seasonal allergic rhinitis due to pollen 019 Chronic heart failure with p reserved ejection fraction ([facility]) 11/12/2018 Arthralgia of left hand 11/02/2018 Enchondroma of bone of hand, left 11/02/2018 Carpal tunnel syndrome on left 08/26/2018 Cryptogenic stroke ([facility]) 07/06/2018 Skin lesion of right arm 06/28/2018 Weakness 05/26/2018 Status post placement of implantable loop record er 10/13/2017 Overview (01/13/2018): Overview: Medtronic Reveal Loop Recorder. Dx; Cryptogenic Stroke. DOI 10/12/[address] Willoughby. [facility] remote monitoring. TIA (transient ischemic attack) 10/06/2017 Mild emphysema ([facility]) 08/28/2017 Hepatic steatosis 08/28/2017 Memory loss 05/18/2017 Chest pain 04/30/2017 S/P coronary artery stent placement 12/17/2016 Hemorrhoids 10/03/2016 Hearing loss 08/01/2016 Decreased hearing 07/17/2016 Chronic nausea 03/27/2016 Diabetic foot ([facility]) 03/10/2016 Abdominal wall bulge 03/10/2016 CHF (congestive heart failure) ([facility]) 01/14/2016 Peripheral edema 12/19/2015 Tinnitus 11/08/2015 History of kidney stones 10/03/2015 Insomnia 05/07/2015 Chronic cough 03/20/2015 Hypertensive heart disease w ith congestive heart failure ([facility]) 02/20/2015 Overview (01/13/2018): Overview: Hypertensive heart disease with diastolic heart failure 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 02/20/2015 Overview (01/13/2018): Overview: Coronary artery disease involving cabazon coronary artery of cabazon heart with other form of angina pectoris CVA, old, hemiparesis ([facility]) 02/21/20 15 Overview (01/13/2018): Overview: CVA, old, hemiparesis Dyslipidemia associated with type 2 diabetes mellitus ([facility]) 02/20/2015 Overview (01/13/2018): Overview: DM (diabetes mellitus) Overview: DM type 2 with diabetic dyslipidemia Mixed diabetic hyperlipidemi a associated with type 2 diabetes mellitus ([facility]) 02/20/2015 Overview (05/17/2021): DM type 2 with [...] Overview: HTN (hypertension), benign Cerebrovascular accident (CVA) ([facility]) 08/23/2013 Hyperlipidemia 08/23/2013 Resolved Problems Problem Noted Date Diagnosed Date Resolved Date Left nephrolithiasis 10/07/2017 018 Encounter for screening for lung cancer 04/09/2017 06/28/2018 BMI 45.0-49.9, adult ([facility]) 10/03/2016 05/15/2022 Morbid obesity ([facility]) 08/13/2016 05/15/2022 Encounter for preventive health examination 08/23/2013 06/28/2018 Encounters Date Type Department Care Team Description 03/22/2024 Telephone [facility] Family & Internal Medicine [address] [phone] Sandi Alfaro APNP Medication Request; Advice 03/18/2024 Scan MG HEALTH INFO SRVCS Scanned, Doc Med Group Lab (SCAN) 03/18/2024 Scan MG HEALTH INFO SRVCS Scanned, Doc Med Group Lab (SCAN); CT (SCAN); Image (SCAN) 02/26/2024 Telephone [facility] Family & Internal Medicine [address] [phone] Sandi Alfaro, APNP Medication Request 02/22/2024 Scan MG HEALTH INFO SRVCS Scanned, Doc Med Group 02/10/[address] [phone] Sandi Alfaro APNP Lab Results 02/05/2024 9:20 AM EXECUTIVE VICE PRESIDENT AND CHIEF OPERATING OFFICER Office Visit [address] [phone] Sandi Alfaro APNP Mass (Follow-up on left arm mass) 02/05/2024 Travel 01/29/2024 Scan MG HEALTH INFO SRVCS Scanned, Doc Med Group Image (SCAN); CT (SCAN) 01/29/[address] [phone] Sandi Alfaro APNP Results 01/28/2024 Scan MG HEALTH INFO SRVCS Scanned, Doc Med Group 01/22/2024 Scan MG HEALTH INFO SRVCS Scanned, Doc Med Group Ultrasound (SCAN) 01/21/2024 Scan MG HEALTH INFO SRVCS Scanned, Doc Med Group 01/19/2024 10:00 AM EXECUTIVE VICE PRESIDENT AND CHIEF OPERATING OFFICER Office Visit [address] [phone] Sandi Alfaro, APNP Mass (Left arm) 01/19/2024 Scan MG HEALTH INFO SRVCS Scanned, Doc Med Group 01/19/2024 Travel 01/18/2024 Scan MG HEALTH INFO SRVCS Scanned, Doc Med Group 12/28/[address] [phone] Sandi Alfaro APNP Refill Request from Last 3 Months Immunizations Name Administration [...] pur e alcohol) very rarely 6 beers/year [employer] Answer Date Recorded In the past 12 months has [employer], oil, or water [employer] threatened to shut off services in your [...] often do you attend chur ch or adventist services? Never 05/12/2023 Do you belong to any clubs o r organizations such as jain groups, unions, fraternal or athletic groups, or [...] Recorded Patient Health Questionnaire-2 Score 0 05/21/2023 [facility] - Occupational [...] place to sleep or slept in a long-term (including now)? No 05/12/2023 Sex and Gender Information Value Date Recorded Sex Assigned at Not on file Legal Sex Male 8:01 PM CDT Gender Identity Not on file Sexual Orientation Not on file Last Filed Vital Signs Vital Sign Reading Time Taken Comments Blood Pressure 126/76 02/05/2024 9:31 AM EXECUTIVE VICE PRESIDENT AND CHIEF OPERATING OFFICER Pulse 79 02/05/2024 9:31 AM EXECUTIVE VICE PRESIDENT AND CHIEF OPERATING OFFICER Temperature 36.5 ??C (97.7 ??F) 02/05/2024 9:31 AM CS T Respiratory Rate 16 02/05/2024 9:31 AM EXECUTIVE VICE PRESIDENT AND CHIEF OPERATING OFFICER Oxygen Saturation 98% 02/05/2024 9:31 AM EXECUTIVE VICE PRESIDENT AND CHIEF OPERATING OFFICER Inhaled Oxygen Concentration - - Weight 139.3 kg (307 lb 3.2 oz) 02/05/2024 9:31 AM EXECUTIVE VICE PRESIDENT AND CHIEF OPERATING OFFICER Height 182.9 cm (6') 02/05/2024 9:31 AM EXECUTIVE VICE PRESIDENT AND CHIEF OPERATING OFFICER Body Mass Index 41.66 02/05/2024 9:31 AM EXECUTIVE VICE PRESIDENT AND CHIEF OPERATING OFFICER Plan of Treatment Upcoming Encounters Date Type Department Care Team (Late st Contact Info) Description 03/31/2024 8:40 AM EXECUTIVE VICE PRESIDENT AND CHIEF OPERATING OFFICER Office Visit [facility] Medical Group Family & Internal Medicine [address] [phone] Sandi Alfaro APNP [address] [place] [address] 05/05/2024 8:00 AM EXECUTIVE VICE PRESIDENT AND CHIEF OPERATING OFFICER Office Visit [facility] Family & Internal Medicine - [address] [phone] aSndi Alfaro, CRIS [address] [place] [address] Health Maintenance Due Date Last Done Comments Annual Physical 1963 COVID-19 Vaccine ( season) 2023 12/31/2021, 12/31/2020, 05/11/2020, Additional history exists PHQ-2 (Physician [place]) 03/02/2024 05/21/2023 Lipid Panel 05/12/2024 05/13/2023, 05/0 04/2022, 06/28/2021, Additional history exists Hemoglobin A1C 08/05/2024 02/05/2024, 04/30, 12/23/2022, Additional [...] Procedure Name Priority Date/Time Associated Diagnosis Comments CT GENERIC 03/18/2024 CT GENERIC 03/18/2024 OUTSIDE LAB COVID-19 (SCAN ORDER) Routine 03/18/2024 OUTSIDE PT/INR (SCAN ORDER) 03/18/2024 OUTSIDE LAB (SCAN ORDER) 03/18/2024 OUTSIDE LAB (SCAN ORDER) 03/18/2024 OUTSIDE LAB (SCAN ORDER) 03/18/2024 IMAGE GENERIC 03/18/2024 ALBUMIN URINE RANDOM W/CREATININE Routine 02/05/2024 11:04 AM EXECUTIVE VICE PRESIDENT AND CHIEF OPERATING OFFICER Mixed diabetic hyperlipidemia associated with type 2 diabetes mellitus (CMS/HCC HHS/HCC) COLLECT.CAPILLARY (FNGR,HEEL,EAR) Routine 02/05/2024 10:00 AM EXECUTIVE VICE PRESIDENT AND CHIEF OPERATING OFFICER Type 2 diabetes mellitus without complication, without long-term current use of insulin (CMS/HCC HHS/HCC) HEMOGLOBIN, GLYCOSYLATED Routine 02/05/2024 Type 2 diabetes mellitus without complication, without long-term current use of insulin (CMS/HCC HHS/HCC) CT GENERIC 01/29/2024 IMAGE GENERIC 01/29/2024 IMAGE GENERIC 01/29/2024 ULTRASOUND GENERIC (SCAN ORDER) 01/22/2024 LIPID PANEL Routine 05/13/2023 6:00 AM CDT DIABETIC RETINOPATHY EXAM (NEGATIVE)(SCAN ORDER) Routine 04/20/2023 HEPATITIS C ANTIBODY W/RFX TO HCV RNA Routine 06/28/2021 11:22 AM CDT Need for hepatitis C screening test COLONOSCOPY GENERIC (SCAN ORDER) Routine 03/28/2015 from Last 3 Months or Most Recently Relevant to Health Maintenance Results * OUTSIDE LAB COVID-19 (03/18/2024) CORONAVIRUS SARS COV 2 PCR (RESP) NOT DETECTED NOT DETECTED [facility] 03/18/2024 us Doc Med Group Scanned SCANNING Final Resu lt [facility] ON[facility] * CT GENERIC (03/18/2024) Only the most recent of3 resultswithin the time period is included. Anatomical Region Laterality Modality Other 03/18/2024 us Doc [facility] Group Scanned SCANNING Final Resu lt * OUTSIDE PT/INR (SCAN ORDER) (03/18/2024) 03/18/2024 us [facility] Group Scanned SCANNING Final Resu lt * OUTSIDE LAB (SCAN ORDER) (03/18/2024) Only the most recent of3 resultswithin the time period is included. 03/18/2024 us [facility] Group Scanned SCANNING Final Resu lt * IMAGE GENERIC (03/18/2024) Only the most recent of3 resultswithin the time period is included. Anatomical Region Laterality Modality Other 03/18/2024 [email or web address] [facility] Group Scanned SCANNING Final Resu lt * (ABNORMAL) ALBUMIN/CREATININE RATIO, RANDOM URINE (02/05/2024 11:04 AM EXECUTIVE VICE PRESIDENT AND CHIEF OPERATING OFFICER) MICROALBUMIN (U) 635.8(H) <20 MG/L 02/05/20 24 3:47 PM EXECUTIVE VICE PRESIDENT AND CHIEF OPERATING OFFICER [facility] CREATININE RANDOM (U) 87.3 MG/DL 02/05/2024 3:47 PM EXECUTIVE VICE PRESIDENT AND CHIEF OPERATING OFFICER [facility] ALBUMIN/CREAT RATIO 728.3(H) <30 MG/G 02/05/2024 3:47 PM EXECUTIVE VICE PRESIDENT AND CHIEF OPERATING OFFICER [facility] URINE SPECIMEN / Unknown 02/05/2024 11:04 AM EXECUTIVE VICE PRESIDENT AND CHIEF OPERATING OFFICER Sandi LYNCH URINE ORDERABLES Final Resu lt [facility] JENIFFER LORETTO [address] [place] [address], [place] [phone] * HEMOGLOBIN, GLYCOSYLATED (02/05/2024) HGB A1C 6.5 % [facility] 02/05/2024 Sandi LYNCH LABORATORY Final Resul t Performing Organization Address City/[facility] Co de Phone Number [facility] [address] [place] [address], [place] * ULTRASOUND GENERIC (SCAN ORDER) (01/22/2024) Anatomical Region Laterality Modality Other 01/22/2024 Doc Med Group Scanned SCANNING Final Resu lt * (ABNORMAL) LIPID PANEL (05/13/2023 6:00 AM CDT) CHOLESTEROL 87 <200 MG/DL 05/13/2023 7:18 AM CDT [facility] TRIGLYCERIDES 213(H) <150 MG/DL 05/13/2023 7:18 AM CDT [facility] HDL 24(L) >40.0 MG/DL 05/13/2023 7:18 AM CDT [facility] LDL (CALCULATED) 20 <100 MG/DL 05/13/2023 7:18 AM CDT [facility] NON HDL CHOLESTEROL 63 <130 MG/DL 05/13/2023 7:18 AM CDT [facility] CHOL/HDL RATIO 3.6 0.0 - 4.5 05/13/2023 7:18 AM CDT [facility] VLDL CALCULATION 43 5 - 55 MG/DL 05/13/2023 7:18 AM CDT [facility] LIPID INTERPRETATION 05/13/2023 7:18 AM CDT [facility] Comment: NIH CONCENSUS REPORT RECOMMENDATIONS: [...] ? >=160 ?>=130 05/13/2023 6:00 AM CDT Ayanna Bellamy MD LABORATORY Final Re sult Performing Organization Address City/[facility]/ZIP Co de Phone Number [facility] [address] [place] [address], [place] [phone] * DIABETIC RETINOPATHY EXAM (NEGATIVE) (04/20/2023) us Doc Med Group Scanned SCANNING Final Resu lt Performing Organization Address [facility] Co de Phone Number [facility] ONBASE * HEPATITIS C ANTIBODY W/RFX TO [...] a test for HCV RNA (test code 81356) is suggested. For additional information please refer to http://education.[employer]/faq/QRO84d0 (This link is being provided for informational/ educational purposes only.) 06/28/2021 11:2 2 AM CDT 06/29/2021 10:18 AM CDT us Sandi LYNCH LABORATORY Final Resul t Performing Organization Address City/[facility]/ZIP Co de Phone Number [facility] [address] [place] [phone] * COLONOSCOPY (03/28/2015) 03/28/2015 us Documents Scanned SCANNING Edited Result - Final from Last 3 Months or Most Recently Relevant to Health Maintenance Insurance [place] [address] MEDICAID Advance Directives * Full Code (Latest Code Status on File) Date Activated Date Inactivated Comments 05/12/2023 9:50 PM 05/14/2023 4:50 PM * Full Code Date Activated Date Inactivated Comments 05/01/2017 6:00 PM 05/02/2017 3:18 PM * Full Code Date Activated Date Inactivated Comments 04/30/2017 11:13 PM 05/01/2017 6:00 PM Care Teams Marine Scientist Relationship Specialty Start Date End Date Sandi Alfaro APNP Family & [place] [address] PCP - General ADVANCED PRACTICE GAS DESULFURIZER 04/28/17 Cheryl Huston, pest control applicator (Ambulatory) REGISTERED NURSE 03/23/19
--- OUTSIDE RECORDS SUMMARY | 2024-03-29 11:21 | XMS_ITS | Encounter Summary ---
Author Organization [facility] Address [address] [place] [address] Care Team Providers Care Structural Steel Worker Name Role Phone Sandi Alfaro Primary Care Provider + Reason for Visit * Reason Comments Hospital Follow Up Encounter Details Date Type Department Care Team (Late st Contact Info) Description 03/28/2024 9:00 AM CONFERENCE ORGANIZER Office Visit [facility] Cardiology [address] [place] [address] Ifrah Kahn NP [address] [place] [address] Coronary artery disease of [place] artery of [place] heart with stable angina pectoris (HCC) (Primary Dx); CVA, old, hemiparesis (CMS/HCC) (HCC); Hypertension associated with diabetes (HCC); Recently quit using tobacco Social History Tobacco Use Types Packs/Day Years [...] on file Legal Sex Male 3:15 AM CONFERENCE ORGANIZER Gender Identity Male 09/03/2018 6:22 AM CDT Sexual Orientation Straight 09/03/2018 6: 22 AM CDT documented as of this encounter Last Filed Vital Signs Vital Sign Reading Time Taken Comments Blood Pressure 132/72 03/28/2024 9:10 AM CONFERENCE ORGANIZER Pulse - - Temperature - - Respiratory Rate - - Oxygen Saturation 96% 03/28/2024 9:10 AM CONFERENCE ORGANIZER Inhaled Oxygen Concentration - - Weight 137.4 kg (303 lb) 03/28/2024 9:10 AM CONFERENCE ORGANIZER Height 182.9 cm (6') 03/28/2024 9:10 AM CONFERENCE ORGANIZER Body Mass Index 41.09 03/28/2024 9:10 AM CONFERENCE ORGANIZER documented in this encounter Patient Instructions * Patient Instructions* Ifrah Kahn NP - 03/28/2024 9:00 AM CONFERENCE ORGANIZER Doxazosin can lower blood pressure and contribute to the problem of your blood pressure dropping when you stand up. Check the bottle to see who's name is listed as the prescriber. Consider decreasingdose of doxazosin to 1 mg daily or simply stopping it altogether. ERENCE ORGANIZER documented in this encounter Progress Notes * Ifrah Kahn NP - 03/28/2024 9:00 AM CST Images from the original note were not included. [facility] [address] [place] [address] Date of Visit: 03/28/2024 Patient ID: Vini Zambrano 1960 Chief Complaint Patient presents with Hospital Follow Up Vini Zambrano is a 63 y.o. male who is a former patient of Dr. Willoughby, now established with Dr. Modi. He has a history of CAD returning to the office for ER follow-up regarding recurrent chest pain. History of Present Illness: Vini Zambrano is a 63 y.o. male with CAD status post PCI to proximal LAD and left circumflex, chronic diastolic heart failure, CVA, hypertension, hyperlipidemia, DM Type 2, and TAMIR on CPAP presentsfor follow up care. Last visit in our office was January 2024 at which time he met Dr. Modi. 03/28/2024 hospital follow-up visit with ADOLESCENT MEDICINE SPECIALIST: He returns today for concern of recurrent chest pain, having gone to the ER with a negative workup. He has episodes where ???a feeling comes over me?? where he gets warm, feels flushed, short of breath, heat shoots up the back of his neck and the back of his head and he feels chest pain. It is relieved with sublingual nitroglycerin. There was an episode recently where he went to the ER after his chest pain came back after using nitroglycerin intermittently. Sometimes his symptoms happen when he is walking around in a store or it can happen when heis simply sitting. He also recently had a day where his blood pressure dropped upon standing from systolic 110 to systolic 70-80 mmHg. He quit smoking on 02/17/2024. Medical History: Past Medical History: Diagnosis Date Anxiety Arthritis Coronary artery disease Diabetes mellitus (HCC) GERD (gastroesophageal reflux disease) GI (gastrointestinal bleed) Heart disease Hypertension Kidney stone Lymphoma (HCC) Sleep apnea Stroke (HCC) Past Surgical History: Procedure Laterality Date CHOLECYSTECTOMY Social History Tobacco Use Smoking status: Current Every Day Smoker Smokeless tobacco: Never Used Substance Use Topics Alcohol use: Yes Drug use: Never Family History Problem Relation Age of Onset Diabetes Father Diabetes mellitus; Other Father Bypass; Coronary artery disease Father Coronary artery disease; Hypertension Father Hypertension; Hearing loss Father Heart attack Father Heart disease Father Stroke Father Review of Systems Constitutional: Negative for malaise/fatigue, weight gain and weight loss. Cardiovascular: Positive for chest pain. Negative for dyspnea on exertion, leg swelling, near-syncope, orthopnea, palpitations, paroxysmal nocturnal dyspnea and syncope. Respiratory: Positive for shortness of breath. Negative for cough and sleep disturbances due to breathing. Hematologic/Lymphatic: Negative for bleeding problem. Does not bruise/bleed easily. Vital Signs: BP 132/72 (BP Location: Left arm, Patient Position: Sitting) Ht 182.9 cm (6') Wt (!) 137.4 kg (303 lb) SpO2 96% BMI 41.09 kg/m?? Physical Exam Constitutional: General: He is not in acute distress. Appearance: He is well-developed. He is morbidly obese. HENT: Head: Normocephalic and atraumatic. Eyes: General: No scleral icterus. Conjunctiva/sclera: Conjunctivae normal. Neck: Vascular: No carotid bruit or JVD. Trachea: No tracheal deviation. Cardiovascular: Rate and Rhythm: Normal rate and regular rhythm. Heart sounds: Normal heart sounds. No murmur heard. Pulmonary: Effort: Pulmonary effort is normal. No respiratory distress. Breath sounds: Normal breath sounds. Skin: General: Skin is warm and dry. Neurological: Mental Status: He is alert and oriented to person, place, and time. Psychiatric: Mood and Affect: Mood normal. Behavior: Behavior normal. No Known Allergies Current Outpatient Medications: albuterol HFA (PROVENTIL HFA,VENTOLIN HFA,PROAIR HFA) 90 mcg/actuation inhaler, Inhale 2 puffs every 6 (six) hours as needed for wheezing, Disp: , Rfl: ALPRAZolam (XANAX) 0.25 mg tablet, Take 1 tablet (0.25 mg total) by mouth nightly as needed for sleep, Disp: , Rfl: amLODIPine (NORVASC) 10 mg tablet, TAKE 1 TABLET BY MOUTH EVERY DAY, Disp: 90 tablet, Rfl: 2 aspirin (ASPIR-81) 81 mg tablet, take 1 tablet by oral route every day, Disp: 0, Rfl: 0 atorvastatin (LIPITOR) 80 mg tablet, TAKE 1 TABLET BY MOUTH EVERY DAY, Disp: 90 tablet, Rfl: 1 buPROPion SR (WELLBUTRIN SR) 150 mg 12 hr tablet, take 2 Tablet by oral route every day, Disp: 0, Rfl: 0 carvediloL (COREG) 25 mg tablet, Take 1 tablet (25 mg total) by mouth 2 (two) times a day with meals, Disp: , Rfl: doxazosin (CARDURA) 2 mg tablet, take 1 tablet by oral route every day, Disp: 0, Rfl: 0 isosorbide mononitrate ER (IMDUR) 60 mg 24 hr tablet, TAKE 2 TABLETS BY MOUTH DAILY., Disp: 180 tablet, Rfl: 3 loratadine 10 mg capsule, Take by mouth, Disp: , Rfl: losartan (COZAAR) 100 mg tablet, TAKE 1 TABLET BY MOUTH EVERY DAY, Disp: 90 tablet, Rfl: 0 meclizine (ANTIVERT) 25 mg tablet, TAKE 1 TABLET BY MOUTH THREE TIMES A DAY NEEDED FOR DIZZINES,Disp: , Rfl: metFORMIN (GLUCOPHAGE) 1,000 mg tablet, take 1 tablet by oral route 2 times every day with morning and evening meals, Disp: 0, Rfl: 0 montelukast (SINGULAIR) 10 mg tablet, , Disp: , Rfl: mupirocin (BACTROBAN) 2 % ointment, Apply topically 3 (three) times a day, Disp: , Rfl: nitroglycerin (NITROSTAT) 0.4 mg SL tablet, Place 1 tablet (0.4 mg total) under the tongue every 5 (five) minutes as needed for chest pain, Disp: 75 tablet, Rfl: 3 omeprazole (PriLOSEC) 40 mg capsule, , Disp: , Rfl: ondansetron (ZOFRAN) 4 mg tablet, Take 1 tablet (4 mg total) by mouth every 8 (eight) hours as needed for nausea or vomiting, Disp: , Rfl: oxyCODONE-acetaminophen (PERCOCET) 5-325 mg per tablet, Take 1 tablet by mouth every 4 (four) hoursas needed for pain, Disp: , Rfl: TRULICITY 1.5 mg/0.5 mL pen injector, , Disp: , Rfl: Xarelto 2.5 mg tablet, TAKE 1 TABLET BY MOUTH TWICE A DAY, Disp: 180 tablet, Rfl: 3 tamsulosin (FLOMAX) 0.4 mg extended release capsule, TAKE 1 CAPSULE BY MOUTH EVERYDAY AT BEDTIME, Disp: , Rfl: No results found for: POTASSIUM , BUNSER , CREATININE , CHOL , TRIG , LDL , LDLCALC , HDL No results found for: WBC , HGB , HCT , MCV , PLT Assessment: Diagnoses and all orders for this visit: Coronary artery disease of [place] artery of [place] heart with stable angina pectoris (HCC) (Primary) CVA, old, hemiparesis (CMS/HCC) (HCC) Hypertension associated with diabetes (HCC) Recently quit using tobacco Plan/Recommendations: He has a history of coronary artery disease and had a NSTEMI in January 2023, thought to be secondary to occlusion of a small branch not amenable to PCI. Ongoing medical management is being pursued.He has not been able to tolerate rate clopidogrel or ranolazine due to GI upset. He has been managed on a regimen of high-dose isosorbide mononitrate, carvedilol, losartan, aspirin 81 mg daily and Xarelto 2.5 mg b.i.d. (compass trial). He continues to have chest pain which is relieved by sublingualnitroglycerin. I will review his symptoms with Dr. Modi to see if repeat ischemic evaluation is advised at this time. I will follow up with him over the phone. He has a history of CVA with mild left-sided hemiparesis. Continue atorvastatin and aspirin. He has a history of diastolic heart failure. As he has lost weight he has not needed diuretic therapy. Continue losartan and carvedilol. Blood pressure is controlled but he recently had an episode of orthostatic hypotension. Consider decreasing dose or discontinuing doxazosin. He will talk to the prescribing provider (PCP vs urologist?). Continue antihypertensives amlodipine, losartan, carvedilol. For his diabetes he is on metforminand Trulicity. He quit smoking last month. I congratulated him. 03/28/2024 IRENA Guzman- Nurse Practitioner with [facility] Cardiology This note is dictated and transcribed using DNA13 Direct Software. Gold Stamper variancesmay occur. Despite proofreading, typographical errors may occur. ERENCE ORGANIZER documented in this encounter Plan of Treatment Not on file documented as of this encounter Visit Diagnoses Diagnosis Coronary artery disease of [place] artery of [place] heart with stable angina pectoris (HCC)- Primary CVA, old, hemiparesis (CMS/HCC) (HCC) Hypertension associated with diabetes (HCC) Unspecified essential hypertension Recently quit using tobacco documented in this encounter Discontinued Medications Medication Sig Discontinue Reason Start Date End Da te methocarbamoL (ROBAXIN) 750 mg tablet Take 1 tablet (750 mg total) by mouth 4 (four) times a day Therapy completed 03/28/2024 Symbicort 160-4.5 mcg/actuation inhaler Inhale 2 puffs 2 (two) times a day Therapy completed 07/23/2021 03/28/2024 documented as of this encounter Historical Medications * This list may reflect changes made after this encounter. tamsulosin (FLOMAX) 0.4 mg extended release capsule TAKE 1 CAPSULE BY MOUTH EVERYDAY AT BEDTIME meclizine (ANTIVERT) 25 mg tablet TAKE 1 TABLET BY MOUTH THREE TIMES A DAY NEEDED FOR DIZZINES 01/29/2024 added in this encounter Care Teams Structural Steel Worker Relationship Specialty Start Date End Date Sandi Alfaro PA PCP - General Nurse Practitioner 08/21/17 documented as of this encounter
--- OUTSIDE RECORDS SUMMARY | 2024-03-29 11:21 | XMS_ITS | Encounter Summary ---
Author Organization [facility] Address [address] [place] [address]. [place], [place] [address] [place] [address] Care Team Providers Care Oxygen Tank Filler Name Role Phone Sandi Alfaro Primary Care Provider [phone] Cheryl Huston RN Unavailable Unavailable Reason for Visit * Reason Comments Lab (SCAN) CT (SCAN) Image (SCAN) Encounter Details Date Type Department Care Team ([facility] Contact Info) Description 03/18/2024 Scan HEALTH INFO [facility] Scanned, [facility] Lab (SCAN); CT (SCAN); Image (SCAN) Social History Tobacco Use Types Packs/Day Years Used Date Smoking Tobacco: Former Cigarettes 0.3 40 Smokeless Tobacco: Never Comments:currently smoking 1 -2 cigarettes a day Alcohol Use Standard Drinks/Week Comments Yes 0 (1 standard drink = 0.6 oz pur e alcohol) very rarely 6 beers/year [facility] Utilities Answer Date Recorded In the past 12 months has [facility] [employer], gas, oil, or water [employer] threatened to shut off services in your [...] How often do you attend chur or temple services? Never 05/12/2023 Do you belong to any clubs o r organizations such as alevism groups, unions, fraternal or athletic groups, or [...] Recorded Patient Health Questionnaire-2 Score 0 05/21/2023 [facility] of Occupat ional Health - Occupational Stress [...] Dawkins RN Active documented in this encounter Plan of Treatment Upcoming Encounters Date Type Department Care Team (Late st Contact Info) Description 03/31/2024 8:40 AM SENIOR BACKUP ADMINISTRATOR Office Visit [facility] Family & Internal [address] [address] Sandi Alfaro, CRIS [address] [place] [address] 05/05/2024 8:00 AM SENIOR BACKUP ADMINISTRATOR Office Visit [facility] Internal [address] [address] Sandi Alfaro APNP [address] [place] [address] documented as of this encounter Procedures Procedure Name Priority Date/Time Associated Diagnosis Comments CT GENERIC 03/18/2024 CT GENERIC 03/18/2024 OUTSIDE PT/INR (SCAN ORDER) 03/18/2024 OUTSIDE LAB (SCAN ORDER) 03/18/2024 OUTSIDE LAB (SCAN ORDER) 03/18/2024 OUTSIDE LAB (SCAN ORDER) 03/18/2024 IMAGE GENERIC 03/18/2024 documented in this encounter Results * OUTSIDE PT/INR (SCAN ORDER) (03/18/2024) 03/18/2024 [facility] Scanned SCANNING Final Resu lt * OUTSIDE LAB (SCAN ORDER) (03/18/2024) 03/18/2024 [facility] Scanned SCANNING Final Resu lt * OUTSIDE LAB (SCAN ORDER) (03/18/2024) 03/18/2024 [facility] Scanned SCANNING Final Resu lt * OUTSIDE LAB (SCAN ORDER) (03/18/2024) 03/18/2024 [facility] Scanned SCANNING Final Resu lt * CT GENERIC (03/18/2024) Anatomical Region Laterality Modality Other 03/18/2024 [facility] Scanned SCANNING Final Resu lt * IMAGE GENERIC (03/18/2024) Anatomical Region Laterality Modality Other 03/18/2024 [facility] Scanned SCANNING Final Resu lt * CT GENERIC (03/18/2024) Anatomical Region Laterality Modality Other 03/18/2024 [facility] Scanned SCANNING Final Resu lt documented in this encounter Visit Diagnoses Not on filedocumented in this encounter Additional Health Concerns Assessment Noted Time PHQ-9 Depression Total Score: 0 05/21/19 24 11:21 AM CDT documented as of this encounter Care Teams Oxygen Tank Filler Relationship Specialty Start Date End Date Sandi Alfaro APNP Family & Internal Medicine [address] [address] PCP - General ADVANCED PRACTICE DIRECTOR [employer] 04/28/17 Cheryl Huston, manufacturing executive (Ambulatory) REGISTERED NURSE 03/23/19 documented as of this encounter
--- OUTSIDE RECORDS SUMMARY | 2024-03-29 11:21 | XMS_ITS ---
Author Organization [facility] Address [address] [place], [place] [address] Care Team Providers Care Senior Qualitative Researcher Name Role Phone PIETER [place] Unavailable [phone] Sandi Alfaro Unavailable Unavailable REASON FOR VISIT [...] 10 MG/ML Topical Cream [Lotrisone] *Reorder from [employer] for eRx and Interacti 7 Active betamethasone 0.5 MG/ML / clotrimazole 10 MG/ML Topical Cream CUTANEOUS betamethasone 0.5 MG/ML / clotrimazole 10 MG/ML Topical CreamOriginal Medicationbetamethasone 0.5 MG/ML / clotrimazole 10 MG/ML Topical Cream *Reorder from [employer] for eRx and Interaction Alerts* 7 Active clobetasol propionate 0.0005 MG/MG Topical Ointment [Temovate] CUTANEOUS clobetasol propionate 0.0005 MG/MG Topical Ointment [Temovate]Original Medicationclobetasol propionate 0.0005 MG/MG Topical Ointment [Temovate] *Reorder from [employer] for eRx and Interaction Alerts* 7 Active clotrimazole 10 MG/ML Topical Cream CUTANEOUS clotrimazole 10 MG/ML Topical CreamOriginal Medicationclotrimazole 10 MG/ML Topical Cream *Reorder from [employer] for eRx and Interaction Alerts* 7 Active Augmented betamethasone 0.5 MG/ML Topical Cream CUTANEOUS Augmented betamethasone 0.5 MG/ML Topical CreamOriginal MedicationAugmented betamethasone 0.5 MG/ML Topical Cream *Reorder from [employer] for eRx and Interaction Alerts* 7 Active Encounters Encounter Location Date Provider Diagnosis [facility] [place] [address] [place], [place] [address] 01/25/2024 PIETER LATONYAK Tinea unguium B35.1 ; Pain in right toe(s) M79.674 ; Pain in left toe(s) M79.675 ; Atherosclerosis of [place] arteries of extremities with intermittent claudication, bilateral [...] toe(s) (ICD-10 - M79.675) 01/25/2024 Atherosclerosis of [place] arteries of extremities with intermittent claudication, bilateral [...] problems develop. Provider Name:PIETER [place], 08:10:00 AM, [address], [address], [phone], Progress Notes * KLAUDIA HALEY BDOB:[birth year] (63 yo M)Acc No.[id number]:01/25/2024 Patient:?KLAUDIA [place]Y Provider:?Pieter [place] DPM :[id number]???Age:63 Y???Sex:Male Ottoniel e:01/25/2024 [id number] Subjective: * Chief Complaints: * ???Patient presents [...] betamethasone 0.5 MG/ML Topical Cream *Reorder from [facility] for eRx and Interaction Alerts*betamethasone 0.5 MG/ML / clotrimazole 10 MG/ML Topical Cream CUTANEOUS , Notes to Pharmacist: betamethasone 0.5 MG/ML / clotrimazole 10 MG/ML Topical CreamOriginal Medicationbetamethasone 0.5 MG/ML / clotrimazole 10 MG/ML Topical Cream *Reorder from [facility] for eRx and Interaction Alerts*betamethasone 0.5 MG/ML / clotrimazole 10 MG/ML Topical Cream [Lotrisone] CUTANEOUS , Notes to Pharmacist: betamethasone 0.5 MG/ML / clotrimazole 10 MG/ML Topical Cream [Lotrisone]Original Medicationbetamethasone 0.5 MG/ML / clotrimazole 10 MG/ML Topical Cream [Lotrisone] *Reorder from [facility] for eRx and Interacticlobetasol propionate 0.0005 MG/MG Topical Ointment [Temovate] CUTANEOUS , Notes to Pharmacist: clobetasol propionate 0.0005 MG/MG Topical Ointment [Temovate]Original Medicationclobetasol propionate 0.0005 MG/MG Topical Ointment [Temovate] *Reorder from [facility] for eRx and Interaction Alerts*clotrimazole 10 MG/ML Topical Cream CUTANEOUS , Notes to Pharmacist: clotrimazole 10 MG/ML Topical CreamOriginal Medicationclotrimazole 10 MG/ML Topical Cream *Reorder from [facility] for eRx and Interaction Alerts*Medication List reviewed and reconciled with the patientTaking Augmented betamethasone 0.5 MG/ML Topical Cream CUTANEOUS , Notes to Pharmacist: Augmented betamethasone 0.5 MG/ML Topical CreamOriginal MedicationAugmented betamethasone 0.5 MG/ML Topical Cream *Reorder from [facility] for eRx and Interaction Alerts*Taking betamethasone 0.5 MG/ML / clotrimazole 10 MG/ML Topical Cream CUTANEOUS , Notes to Pharmacist: betamethasone 0.5 MG/ML / clotrimazole 10 MG/ML Topical CreamOriginal Medicationbetamethasone 0.5 MG/ML / clotrimazole 10 MG/ML Topical Cream *Reorder from [employer] for eRx and Interaction Alerts*Taking betamethasone 0.5 MG/ML / clotrimazole 10 MG/ML Topical Cream [Lotrisone] CUTANEOUS , Notes to Pharmacist: betamethasone 0.5 MG/ML / clotrimazole 10 MG/ML Topical Cream [Lotrisone]Original Medicationbetamethasone 0.5 MG/ML / clotrimazole 10 MG/ML Topical Cream [Lotrisone] *Reorder from [employer] for eRx and InteractiTaking clobetasol propionate 0.0005 MG/MG Topical Ointment [Temovate] CUTANEOUS , Notes to Pharmacist: clobetasol propionate 0.0005 MG/MG Topical Ointment [Temovate]Original Medicationclobetasol propionate 0.0005 MG/MG Topical Ointment [Temovate] *Reorder from [employer] for eRx and Interaction Alerts*Taking clotrimazole 10 MG/ML Topical Cream CUTANEOUS , Notes to Pharmacist: clotrimazole 10 MG/ML Topical CreamOriginal Medicationclotrimazole 10 MG/ML Topical Cream *Reorder from [employer] for eRx and Interaction Alerts*Medication List reviewed [...] M79.674???3.?Pain in left toe(s) - M79.675???4.?Atherosclerosis of [place] arteries of extremities with intermittent claudication, bilateral [...] the Amputation Prevention Guide. ?? * Procedure Codes:?18558 DEBRI DE NAIL, 6 OR MORE, Modifiers: Q8 * Follow Up:?10 - 12 weeks (Re ason: At-Risk Foot care, sooner if problems develop.) * Billing Information: * Visit Code:? * Procedure Codes:? 45362 DEBRIDE NAIL, 6 OR MORE. Modifiers: Q8 * SHOP TEACHER Sign off status: Completed true * Provider:?Pieter [place] DPM Date:?01/25/20 24 Generated for Michelle chi/Danielle/Felisasmitting on:?03/29/2024 11:20 AM WOOD SHOP TEACHER History and Physical Notes * HPI (History [...]
--- OUTSIDE RECORDS SUMMARY | 2024-03-29 11:21 | XMS_ITS | Encounter Summary ---
Author Organization [facility] Address [address] [place] [address] Care Team Providers Care Supervisor Road Administrator Name Role Phone Sandi Alfaro Primary Care Provider + Reason for Visit * Reason Onset Date Comments Chest Pain 03/24/2024 Encounter Details Date Type Department Care Team (Late st Contact Info) Description 03/24/2024 Telephone [facility] Cardiology [address] [place] [address] Fernando Modi MD [address] [place] [address] Chest Pain Social History Tobacco Use Types Packs/Day Years Used Date Smoking Tobacco: Some Days Cigarettes 0.3 15 Smokeless Tobacco: Never Alcohol Use Standard Drinks/Week Comments Yes 0 (1 standard drink = 0.6 oz pur e alcohol) Sex and Gender Information Value Date Recorded Sex Assigned at Not on file Legal Sex Male 3:15 AM LEAD TEACHER Gender Identity Male 09/03/2018 6:22 AM CDT Sexual Orientation Straight 09/03/2018 6: 22 AM CDT documented as of this encounter Miscellaneous Notes * Telephone Encounter - Harini Mann RN - 03/24/2024 9:16 AM LEAD TEACHER Spoke with pt, pt states that he has been to the ER 3 times recently for chest pain. Pt reports they run tests, tell him nothing is wrong, and discharge him home. Pt states he continues to have chestpain that is relieved by SL Nitro. Pain comes on while at rest and will sometimes wake him up at night while he is sleeping. Pt does report one episode when he was at the grocery store when he began feeling sob and had cp, went and sat in his car and then started to feel better. Pt scheduled to seeCT Thursday morning. Pt advised to go to the ER for any unrelieved chest pain. Pt verbalizes understanding. Will forward to WK as FYI and for any other recommendations. TEACHER * Telephone Encounter - Ilene Soni - 03/24/2024 8:56 AM CST Patient states that on 03/21 he began to experience intermittent chest pain at rest. States that when the chest pain starts the only thing that will stop it is him taking a nitro. States that he wentto the ED on 03/22 and they stated that they could not find a cause. Patient is getting concerned because because the pain won't subside and he has had to take a nitro everyday this week. Requesting a call back as soon as possible. Please advise. Thank you. Contact [phone] TEACHER documented in this encounter Plan of Treatment Not on file documented as of this encounter Visit Diagnoses Not on filedocumented in this encounter Care Teams Supervisor Road Administrator Relationship Specialty Start Date End Date Snadi Alfaro PA PCP - General Nurse Practitioner 08/21/17 documented as of this encounter
== END 2024-03-29 10:21 | disposition home or self-care (01) ==
LOC: ANHIMG 10:22
PROVIDERS: PCP Registered Nurse; Visit Provider Urology
DX: N20.0 Calculus of kidney (principal)
CPT/HCPCS: 74018

== ENCOUNTER 2024-04-14 12:22 | Emergency (ER) | payer MEDICARE, MEDICAID, SELFPAY ==
--- NOTE | ~2024-04-14 | CT_ITS ---
EXAMINATION: CT abdomen pelvis wo con DATE: 04/14/2024 13:17 INDICATION: Left flank pain. TECHNIQUE: Computed tomography (CT) of the abdomen and pelvis was performed without intravenous contr ast. Automated exposure control and iterative reconstruction technique were employed. The dose-length product was 1335.74 mGy-cm. COMPARISON: CT abdomen and pelvis 10/25/2023 FINDINGS: The visualized portions of the lung bases demonstrate mild atelectasis. No pleural effusion . The heart size is normal. There are coronary artery calcifications. No pericardial effusion. There is diffuse hepatic steatosis. The changes of cholecystectomy. The spleen and pancreas are normal. The re are masses in the adrenal glands measuring up to 4.7 cm on the left containing fat, consistent wit h myelolipomas. There is a 3.1 cm cyst in right kidney. There is a 3 mm stone in right kidney. There are 2 mm and 4 mm stones in left kidney. The prostate is moderately enlarged. There is a right inguin al hernia containing fat. There is diverticulosis of the colon without evidence of diverticulitis. Th ere are no dilated loops of bowel. The appendix is normal. There are no pathologically enlarged lymph nodes. There is no free intraperitoneal fluid. There are bridging endplate osteophytes at multiple l evels in the spine, consistent with diffuse idiopathic skeletal hyperostosis (DISH). There is mild fabio mbar spondylosis. IMPRESSION: 1. Bilateral nonobstructing kidney stones. 2. Diffuse hepatic steatosis. 3. Right inguinal hernia containing fat. Reviewed, dictated and finalized at location A. ROPATHIC DOCTOR
--- OUTSIDE RECORDS SUMMARY | 2024-04-14 12:26 | XMS_ITS ---
Author Organization [facility] Address [address] [place], [place] [address] Care Team Providers Care Utility Appraiser Name Role Phone PIETER WALSH Unavailable [phone] Sandi Alfaro Unavailable Unavailable REASON FOR VISIT [...] 10 MG/ML Topical Cream [Lotrisone] *Reorder from [facility] for eRx and Interacti 7 Active betamethasone 0.5 MG/ML / clotrimazole 10 MG/ML Topical Cream CUTANEOUS betamethasone 0.5 MG/ML / clotrimazole 10 MG/ML Topical CreamOriginal Medicationbetamethasone 0.5 MG/ML / clotrimazole 10 MG/ML Topical Cream *Reorder from [facility] for eRx and Interaction Alerts* 7 Active clobetasol propionate 0.0005 MG/MG Topical Ointment [Temovate] CUTANEOUS clobetasol propionate 0.0005 MG/MG Topical Ointment [Temovate]Original Medicationclobetasol propionate 0.0005 MG/MG Topical Ointment [Temovate] *Reorder from [facility] for eRx and Interaction Alerts* 7 Active clotrimazole 10 MG/ML Topical Cream CUTANEOUS clotrimazole 10 MG/ML Topical CreamOriginal Medicationclotrimazole 10 MG/ML Topical Cream *Reorder from [facility] for eRx and Interaction Alerts* 7 Active Augmented betamethasone 0.5 MG/ML Topical Cream CUTANEOUS Augmented betamethasone 0.5 MG/ML Topical CreamOriginal MedicationAugmented betamethasone 0.5 MG/ML Topical Cream *Reorder from [facility] for eRx and Interaction Alerts* 7 Active Encounters Encounter Location Date Provider Diagnosis [facility] [address] [place], [place] [id number] 01/25/2024 PIETER LATONYAK Tinea unguium B35.1 ; Pain in right toe(s) M79.674 ; Pain in left toe(s) M79.675 ; Atherosclerosis of seneca arteries of extremities with intermittent claudication, bilateral [...] toe(s) (ICD-10 - M79.675) 01/25/2024 Atherosclerosis of seneca arteries of extremities with intermittent claudication, bilateral [...] problems develop. Provider Name:PIETER WALSH, 08:10:00 AM, [address], [address], [id number], Progress Notes * KLAUDIA HALEY BDOB:[birth year] (63 yo M)Acc No.[id number]:01/25/2024 Patient: KLAUDIA DUONG B Provider: Kristal Walsh DPM :1960 A ge:63 Y S ex:Male Date:01/25/2024 Address:[address] [place] [address] , [id number] Subjective: * Chief Complaints: * Mundo gonzalse presents for at-risk foot care . The patient has painful toenails that are causing difficulty with ambulation and shoegear. The onset is gradual. The patient has diabetes mellitus * HPI: H PI: General care Mundo gonzales presents to the office for diabetic foot care. Patient states that their nails are thickened, elongated and painful. Patient states that it is aggravated by shoe gear. Onset is gradual., Patient is taking prescription blood thinners., Date last seen by Dr. Alfaro was 01/2024., Initials [facility]. * Medical History: * Surgical History: * Hospitalization/Major Diagno stic Procedure: * Medications: T akingAugmented betamethasone 0.5 MG/ML Topical Cream CUTANEOUS , Notes to Pharmacist: Augmented betamethasone 0.5 MG/ML Topical CreamOriginal MedicationAugmented betamethasone 0.5 MG/ML Topical Cream *Reorder from [facility] for eRx and Interaction Alerts*betamethasone 0.5 MG/ML / clotrimazole 10 MG/ML Topical Cream CUTANEOUS , Notes to Pharmacist: betamethasone 0.5 MG/ML / clotrimazole 10 MG/ML Topical CreamOriginal Medicationbetamethasone 0.5 MG/ML / clotrimazole 10 MG/ML Topical Cream *Reorder from [facility] for eRx and Interaction Alerts*betamethasone 0.5 MG/ML / clotrimazole 10 MG/ML Topical Cream [Lotrisone] CUTANEOUS , Notes to Pharmacist: betamethasone 0.5 MG/ML / clotrimazole 10 MG/ML Topical Cream [Lotrisone]Original Medicationbetamethasone 0.5 MG/ML / clotrimazole 10 MG/ML Topical Cream [Lotrisone] *[facility] and Interacticlobetasol propionate 0.0005 MG/MG Topical Ointment [Temovate] CUTANEOUS , Notes to Pharmacist: clobetasol propionate 0.0005 MG/MG Topical Ointment [Temovate]Original Medicationclobetasol propionate 0.0005 MG/MG Topical Ointment [Temovate] *Reorder from [facility] for eRx and Interaction Alerts*clotrimazole 10 MG/ML Topical Cream CUTANEOUS , Notes to Pharmacist: clotrimazole 10 MG/ML Topical CreamOriginal Medicationclotrimazole 10 MG/ML Topical Cream *Reorder from [facility] for eRx and Interaction Alerts*Medication List reviewed and reconciled with the patientTaking Augmented betamethasone 0.5 MG/ML Topical Cream CUTANEOUS , Notes to Pharmacist: Augmented betamethasone 0.5 MG/ML Topical CreamOriginal MedicationAugmented betamethasone 0.5 MG/ML Topical Cream *Reorder from [facility] for eRx and Interaction Alerts*Taking betamethasone 0.5 MG/ML / clotrimazole 10 MG/ML Topical Cream CUTANEOUS , Notes to Pharmacist: betamethasone 0.5 MG/ML / clotrimazole 10 MG/ML Topical CreamOriginal Medicationbetamethasone 0.5 MG/ML / clotrimazole 10 MG/ML Topical Cream *Reorder from [facility] for eRx and Interaction Alerts*Taking betamethasone 0.5 MG/ML / clotrimazole 10 MG/ML Topical Cream [Lotrisone] CUTANEOUS , Notes to Pharmacist: betamethasone 0.5 MG/ML / clotrimazole 10 MG/ML Topical Cream [Lotrisone]Original Medicationbetamethasone 0.5 MG/ML / clotrimazole 10 MG/ML Topical Cream [Lotrisone] *Reorder from [facility] for eRx and InteractiTaking clobetasol propionate 0.0005 MG/MG Topical Ointment [Temovate] CUTANEOUS , Notes to Pharmacist: clobetasol propionate 0.0005 MG/MG Topical Ointment [Temovate]Original Medicationclobetasol propionate 0.0005 MG/MG Topical Ointment [Temovate] *Reorder from [facility] for eRx and Interaction Alerts*Taking clotrimazole 10 MG/ML Topical Cream CUTANEOUS , Notes to Pharmacist: clotrimazole 10 MG/ML Topical CreamOriginal Medicationclotrimazole 10 MG/ML Topical Cream *Reorder from [facility] for eRx and Interaction Alerts*Medication List reviewed and reconciled with the patient Objective: * Vitals: * Examination: P hysical Examination: General appearance: A lert, pleasant, well-nourished and in no acute distress. D ermatologic: Skin findings: S kin is thin, atrophic and lacking pedal hair. Nail pathology: N ails 1, 2, 3, 4, and 5 bilateral are elongated, thick, discolored, and dystrophic with subungual debris. They are painful to palpation. ? V ascular: Dorsalis pedis pulse: 1 /4 b ilateral. Posterior tibial pulse: 0 /4 bilateral. Capillary refill: g reater than 3 seconds. Edema: N o edema bilateral. N eurologic: Gross sensation G rossly intact to light touch. There is negative Tinel's sign. M usculoskeletal: Muscle Strength M uscle strength is 5/5 in regards to dorsiflexion, plantarflexion, inversion, and eversion in bilateral lower extremities. ? Assessment: * Assessment: 1. T inea unguium - B35.1 (Primary) 2 . P ain in right toe(s) - M79.674? 3. P ain in left toe(s) - M79.675 4 . A therosclerosis of seneca arteries of extremities with intermittent claudication, bilateral legs - I70.213 5 . 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 The patient was instructed to check his feet daily to report any problems or signs of infection immediately. The patient was provided written information on Diabetic Foot Care as well as the Amputation Prevention Guide. * Procedure Codes: 1 1721 DEBRIDE NAIL, 6 OR MORE, Modifiers: Q8 * Follow Up: 1 0 - 12 weeks (Reason: At-Risk Foot care, sooner if problems develop.) * Billing Information: * Visit Code: * Procedure Codes: 31406 DEBRIDE NAIL, 6 OR MORE. Modifiers: Q8 * E LEAD FILTERER Sign off status: Completed true * Provider: Kristal Walsh DPM Date: 1 03/26/2023 Generated for Michelle chi/Danielle/Nimesh on: 0 04/14/2024 12:26 PM WHITE LEAD FILTERER History and Physical Notes * HPI (History [...]
--- OUTSIDE RECORDS SUMMARY | 2024-04-14 12:26 | XMS_ITS ---
Author Organization [facility] Address [address] [place], [place] [id number] Care Team Providers Care Injection Molding Machine Tender Name Role Phone PIETER WALSH Unavailable [phone] Sandi Alfaro Unavailable Unavailable REASON FOR VISIT [...] 0.0005 MG/MG Topical Ointment [Temovate] *Reorder from [facility] for eRx and Interaction Alerts* 7 Active clotrimazole 10 MG/ML Topical Cream CUTANEOUS clotrimazole 10 MG/ML Topical CreamOriginal Medicationclotrimazole 10 MG/ML Topical Cream *Reorder from [facility] for eRx and Interaction Alerts* 7 Active betamethasone 0.5 MG/ML / clotrimazole 10 MG/ML Topical Cream [Lotrisone] CUTANEOUS betamethasone 0.5 MG/ML / clotrimazole 10 MG/ML Topical Cream [Lotrisone]Original Medicationbetamethasone 0.5 MG/ML / clotrimazole 10 MG/ML Topical Cream [Lotrisone] *Reorder from [facility] for eRx and Interacti 7 Active Augmented betamethasone 0.5 MG/ML Topical Cream CUTANEOUS Augmented betamethasone 0.5 MG/ML Topical CreamOriginal MedicationAugmented betamethasone 0.5 MG/ML Topical Cream *Reorder from [facility] for eRx and Interaction Alerts* 7 Active betamethasone 0.5 MG/ML / clotrimazole 10 MG/ML Topical Cream CUTANEOUS betamethasone 0.5 MG/ML / clotrimazole 10 MG/ML Topical CreamOriginal Medicationbetamethasone 0.5 MG/ML / clotrimazole 10 MG/ML Topical Cream *[facility] and Interaction Alerts* 7 Active Encounters Encounter Location Date Provider Diagnosis [facility] [place] [address] [place], [place] [id number] 11/09/2023 PIETERKELLEY WALSH Tinea unguium B35.1 ; Pain in right toe(s) M79.674 ; Pain in left toe(s) M79.675 ; Atherosclerosis of ruby arteries of extremities with intermittent claudication, bilateral [...] toe(s) (ICD-10 - M79.675) 11/09/2023 Atherosclerosis of ruby arteries of extremities with intermittent claudication, bilateral [...] problems develop. Provider Name:PIETER WALSH, 08:10:00 AM, [address], [address], [id number], Progress Notes * KLAUDIA HALEY BDOB:[birth year] (63 yo M)Acc No.[id number]:11/09/2023 Patient: KLAUDIA DUONG B Provider: Kristal Walsh DPM :1960 A ge:63 Y S ex:Male Date:11/09/2023 Address:[address] [place] [address] , [id number] Subjective: * Chief Complaints: * 1 . Patient presents for at-risk foot care . The patient has painful toenails that are causing difficulty with ambulation and shoegear. The onset is gradual. The patient has diabetes mellitus. * HPI: H PI: General care P atient presents to the office for diabetic foot care. Patient states that their nails are thickened, elongated and painful. Patient states that it is aggravated by shoe gear. Onset is gradual., Patient is taking prescription blood thinners., Date last seen by Dr. Alfaro was 08/2023., Initials [facility] , Patient presents to the office for diabetic foot care. Patient states that their nails are thickened, elongated and painful. Patient states that it is aggravated by shoe gear. Onset is gradual., Patient denies taking blood thinners., Date last seen by Dr. Yanez was July 2023., Initials . * ROS: G eneral / Constitutional: Patient denies c hills, fever, weakness, night sweats. M usculoskeletal: Patient denies c hildhood foot problems, weakness. P atient complains of b roken foot bone. P eripheral Vascular: Patient denies u lceration of feet, cold extremities. ? S kin: Patient denies u lcerations, discoloration. ? N eurologic: Patient denies b alance difficulty, confusion, difficulty speaking, dizziness. * Medical History: * Family History: F ather: PRN - Father: :: Hypertension,,known absent , :: Congestive heart failure,,known absent , :: Heart Disease < 55 yrs,,known absent . M other: PRN - Mother: :: Arthritis,,known absent , :: Hypertension,,known absent , :: Diabetes,,known absent . S ister: SIB - Sister: :: Heart Disease < 55 yrs,,known absent . * Social History: M igrated Social History: M igrated Social History: History of tobacco use : Current every day smoker , Smoking Status : Current every day smoker. * Medications: T aking Augmented betamethasone 0.5 MG/ML Topical Cream CUTANEOUS , Notes to Pharmacist: Augmented betamethasone 0.5 MG/ML Topical CreamOriginal MedicationAugmented betamethasone 0.5 MG/ML Topical Cream *Reorder from [facility] for eRx and Interaction Alerts*, Taking betamethasone 0.5 MG/ML / clotrimazole 10 MG/ML Topical Cream CUTANEOUS , Notes to Pharmacist: betamethasone 0.5 MG/ML / clotrimazole 10 MG/ML Topical CreamOriginal Medicationbetamethasone 0.5 MG/ML / clotrimazole 10 MG/ML Topical Cream *Reorder from [facility] for eRx and Interaction Alerts*, Taking betamethasone 0.5 MG/ML / clotrimazole 10 MG/ML Topical Cream [Lotrisone] CUTANEOUS , Notes to Pharmacist: betamethasone 0.5 MG/ML / clotrimazole 10 MG/ML Topical Cream [Lotrisone]Original Medicationbetamethasone 0.5 MG/ML / clotrimazole 10 MG/ML Topical Cream [Lotrisone] *Reorder from [facility] for eRx and Interacti, Taking clobetasol propionate 0.0005 MG/MG Topical Ointment [Temovate] CUTANEOUS , Notes to Pharmacist: clobetasol propionate 0.0005 MG/MG Topical Ointment [Temovate]Original Medicationclobetasol propionate 0.0005 MG/MG Topical Ointment [Temovate] *Reorder from [facility] for eRx and Interaction Alerts*, Taking clotrimazole 10 MG/ML Topical Cream CUTANEOUS , Notes to Pharmacist: clotrimazole 10 MG/ML Topical CreamOriginal Medicationclotrimazole 10 MG/ML Topical Cream *Reorder from [facility] for eRx and Interaction Alerts* Objective: * Examination: P hysical Examination: General appearance: [...] . P ain in right toe(s) - M79.674 3 . P ain in left toe(s) - M79.675 4 . A therosclerosis of ruby arteries of extremities with intermittent claudication, bilateral [...] Information: * Visit Code: * Procedure Codes: 56169 DEBRIDE NAIL, 6 OR MORE. Modifiers: Q8 * Sign off status: Completed true * Provider: Kristal Walsh DPM Date: 0 11/09/2023 Generated for Michelle chi/Danielle/Jeremyitting on: 0 04/14/2024 12:25 PM INTRAMURAL DIRECTOR History and Physical Notes * HPI (History [...]
--- OUTSIDE RECORDS SUMMARY | 2024-04-14 12:26 | XMS_ITS | Encounter Summary ---
Author Organization [facility] Address [address] [place] [address] Care Team Providers Care Child Support Specialist Name Role Phone Sandi Alfaro Primary Care Provider [phone] Cheryl Huston RN Unavailable Unavailable Encounter Details Date Type Department Care Team (Late Contact Info) Description 08/27/2022 [employer] Message Enc [address] [address] [employer], [facility] Provider Air Quality Message Social [...] Information Value Date Recorded Sex Assigned at Male 03/31/2024 8:58 AM FINANCIAL SPECIALIST Legal Sex Male 8:01 PM CDT Gender [...] Encounters Date Type Department Care Team (Late Contact Info) Description 05/05/2024 8:00 AM FINANCIAL SPECIALIST Office Visit [facility] Family & Internal Medicine [address] [phone] Sandi Alfaro APNP [address] [place] [address] documented as of this encounter Visit Diagnoses Not on filedocumented in this encounter Additional Health Concerns Infection Onset Date Last Indicated Resolved Time COVID-19 Rule Out 05/12/2023 05/12/2023 05/13/2023 12:01 AM CDT Influenza - Seasonal 05/14/2023 05/14/2023 024 12:32 AM CDT Assessment Noted Time PHQ-9 Depression Total Score: 13 023 10:48 AM CDT documented as of this encounter Care Teams Child Support Specialist Relationship Specialty Start Date End Date Sandi Alfaro APNP Family & Internal Medicine [address] [address] PCP - General [employer]ED PRACTICE SHELL ASSEMBLER 04/28/17 Cheryl Huston, warp preparer (Ambulatory) REGISTERED NURSE 03/23/19 documented as of this encounter
--- OUTSIDE RECORDS SUMMARY | 2024-04-14 12:26 | XMS_ITS | Encounter Summary ---
Author Organization [facility] Address [address] [place] [address] Care Team Providers Care Mechanical Applications Engineer Name Role Phone Sandi Alfaro Primary Care Provider [phone] Sandi Alfaro Unavailable [phone] Cheryl Huston RN Unavailable Unavailable Encounter Details Date Type Department Care Team (Latest Contact Info) Description 10/26/2017 Abstract [facility] , Shay Hughes MD Social [...] Sex Assigned at Male 03/31/2024 8:58 AM QUALITY COMPLIANCE MANAGER Legal Sex Male 8:01 PM CDT Gender Identity Not on file Sexual Orientation Not on file documented as of this encounter Plan of Treatment Upcoming Encounters Date Type Department Care Team (Late st Contact Info) Description 05/05/2024 8:00 AM QUALITY COMPLIANCE MANAGER Office Visit [facility] Family & Internal Medicine [facility] [address] [place] [address] Sandi Alfaro APNP [address] [place] [address] documented as of this encounter Visit Diagnoses Not on filedocumented in this encounter Additional Health Concerns Infection Onset Date Last Indicated Resolved Time COVID-19 Rule Out 10/24/2019 11/25/2019 11/27/2019 1:56 AM CDT COVID-19 Rule Out 05/03/2020 05/03/2020 05/03/2020 3:25 PM QUALITY COMPLIANCE MANAGER COVID-19 Rule Out 05/12/2023 05/12/2023 05/13/2023 12:01 AM CDT Influenza - Seasonal 05/14/2023 05/14/2023 024 12:32 AM CDT documented as of this encounter Care Teams Mechanical Applications Engineer Relationship Specialty Start Date End Date Sandi Alfaro APNP Family & Internal Medicine [address] [address] PCP - General ADVANCED PRACTICE SAMPLER PICKUP 04/28/17 Sandi Alfaro APNP [address] [place] [address] PCP - Med Group - MSSP Attributed Provider 03/02/15 03/01/22 Cheryl Huston, sales person (Ambulatory) REGISTERED NURSE 03/23/19 documented as of this encounter
--- OUTSIDE RECORDS SUMMARY | 2024-04-14 12:26 | XMS_ITS | Encounter Summary ---
Author Organization [facility] Address [address] [place] [address] Care Team Providers Care Steel Placer Name Role Phone Sandi Alfaro Primary Care Provider [phone] Cheryl Huston RN Unavailable Unavailable Encounter Details Date Type Department Care Team (Late st Contact Info) Description 08/18/2023 [employer] Message Enc [facility] Medical [facility] Multispecialty Care - [facility] [address] [facility], [address] [place] [phone] [facility], [facility] Provider Results Social History Tobacco Use Types Packs/Day Years Used Date Smoking Tobacco: Every Day Cigarettes 0.3 40 Smokeless Tobacco: Never Comments:currently smoking 2 -3 cigarettes a day Alcohol Use Standard Drinks/Week Comments Yes 0 (1 standard drink = 0.6 oz pur e alcohol) very rarely 6 beers/year [facility] Utilities Answer Date Recorded In the past 12 months has [facility] [employer], gas, oil, or water [employer] threatened to shut off services in your [...] How often do you attend chur or cheondoism services? Never 05/12/2023 Do you belong to any clubs o r organizations such as catholic groups, unions, fraternal or athletic groups, or [...] Sex Assigned at Male 03/31/2024 8:58 AM DIRECTOR SOFTWARE Legal Sex Male 8:01 PM CDT Gender Identity Not on file Sexual Orientation Not on file documented as of this encounter Functional Status * Are you deaf or do you have serious difficulty hearing Answer Date of Assessment Author Status No 05/12/2023 10:03 PM Tyrel Gerard, CAR Active * Are you blind or do [...] Date Author Status No 05/12/2023 10:03 PM Tyrel Gerard, RN Active documented in this encounter Plan of Treatment Upcoming Encounters Date Type Department Care Team (Late st Contact Info) Description 05/05/2024 8:00 AM DIRECTOR SOFTWARE Office Visit [facility] Family & Internal Medicine [address] [phone] Sandi Alfaro APNP [address] [place] [address] documented as of this encounter Visit Diagnoses Not on filedocumented in this encounter Additional Health Concerns Assessment Noted Time PHQ-9 Depression Total Score: 0 05/21/19 24 11:21 AM CDT documented as of this encounter Care Teams Steel Placer Relationship Specialty Start Date End Date Sandi Alfaro APNP Family & Internal Medicine [address] [address] PCP - General [employer]ED PRACTICE AIRPLANE GAS TANK LINER ASSEMBLER 04/28/17 Cheryl Huston manager storage (Ambulatory) REGISTERED NURSE 03/23/19 documented as of this encounter
--- OUTSIDE RECORDS SUMMARY | 2024-04-14 12:26 | XMS_ITS | Patient Health Record ---
Author Organization [facility] Address [address] [place], [place] [id number] Care Team Providers Care Gauger Chief Name Role Phone PIETER WALSH Unavailable [phone] Sandi Alfaro Unavailable Unavailable Allergies No Known Allergies Reason For Referral No Information Medications Medication SIG (Take, Route, Frequency, Duration) Notes Start Date End Date Status betamethasone 0.5 MG/ML / clotrimazole 10 MG/ML Topical Cream CUTANEOUS betamethasone 0.5 MG/ML / clotrimazole 10 MG/ML Topical CreamOriginal Medicationbetamethasone 0.5 MG/ML / clotrimazole 10 MG/ML Topical Cream *Reorder from [facility] for eRx and Interaction Alerts* 7 Active betamethasone 0.5 MG/ML / clotrimazole 10 MG/ML Topical Cream [Lotrisone] CUTANEOUS betamethasone 0.5 MG/ML / clotrimazole 10 MG/ML Topical Cream [Lotrisone]Original Medicationbetamethasone 0.5 MG/ML / clotrimazole 10 MG/ML Topical Cream [Lotrisone] *Reorder from [facility] for eRx and Interacti 7 Active Augmented betamethasone 0.5 MG/ML Topical Cream CUTANEOUS Augmented betamethasone 0.5 MG/ML Topical CreamOriginal MedicationAugmented betamethasone 0.5 MG/ML Topical Cream *Reorder from [facility] for eRx and Interaction Alerts* 7 Active clobetasol propionate 0.0005 MG/MG Topical Ointment [Temovate] CUTANEOUS clobetasol propionate 0.0005 MG/MG Topical Ointment [Temovate]Original Medicationclobetasol propionate 0.0005 MG/MG Topical Ointment [Temovate] *Reorder from [facility] for eRx and Interaction Alerts* 7 Active clotrimazole 10 MG/ML Topical Cream CUTANEOUS clotrimazole 10 MG/ML Topical CreamOriginal Medicationclotrimazole 10 MG/ML Topical Cream *Reorder from [facility] for eRx and Interaction Alerts* 7 Active Immunizations Vaccine Route Administration Date Status Comme nts Influenza, live, intranasal Unknown 01/29/2023 Administ ered Vital Signs Height-cm 182.88 cm 06/01/2023 Weight-kg 149.69 kg 06/01/2023 Height 72.00 in 06/01/2023 Weight 330 lbs 06/01/2023 BMI 44.75 kg/m2 06/01/2023 Encounters Encounter Location Date Provider Diagnosis [facility] [address] [place] [address] [id number] 06/01/2023 PIETER SNOOK Tinea unguium B35.1 ; Pain in right toe(s) M79.674 ; Pain in left toe(s) M79.675 ; Atherosclerosis of [place] arteries of extremities with intermittent claudication, bilateral legs I70.213 and Type 2 diabetes mellitus with other circulatory complications E11.59 [facility] [address] [place] [address] [id number] 08/24/2023 PIETER SNOOK Tinea unguium B35.1 ; Pain in right toe(s) M79.674 ; Pain in left toe(s) M79.675 ; Atherosclerosis of [place] arteries of extremities with intermittent claudication, bilateral legs I70.213 and Type 2 diabetes mellitus with other circulatory complications E11.59 [facility] [address] [place], [place] [id number] 08/31/2023 PIETER SNOOK Nondisplaced unspeci fied fracture of unspecified lesser toe(s), initial encounter for closed fracture S92.506A and Pain in left foot M79.672 [facility] [address] [place] [address] [id number] 09/14/2023 PIETER SNOOK Nondisplaced unspeci fied fracture of right lesser toe(s), subsequent encounter for fracture with routine healing S92.504D and Pain in left toe(s) M79.675 [facility] [place] [address] [place] [address] [id number] 11/09/2023 PIETER SNOOK Tinea unguium B35.1 ; Pain in right toe(s) M79.674 ; Pain in left toe(s) M79.675 ; Atherosclerosis of [place] arteries of extremities with intermittent claudication, bilateral legs I70.213 and Type 2 diabetes mellitus with other circulatory complications E11.59 [facility] [place] [address] [place] [address] [id number] 01/25/2024 PIETER SNOOK Tinea unguium B35.1 ; Pain in right toe(s) M79.674 ; Pain in left toe(s) M79.675 ; Atherosclerosis of [place] arteries of extremities with intermittent claudication, bilateral legs I70.213 and Type 2 diabetes mellitus with other circulatory complications E11.59 [facility] [place] [address] [place] [address] [id number] 03/28/2024 PIETER SNOOK Tinea unguium B35.1 ; Pain in right toe(s) M79.674 ; Pain in left toe(s) M79.675 ; Atherosclerosis of [place] arteries of extremities with intermittent claudication, bilateral [...] toe(s) (ICD-10 - M79.675) 01/25/2024 Pain in right toe(s) (ICD-10 - M79.674) 11/09/2023 Pain in right toe(s) (ICD-10 - M79.674) 08/24/2023 Pain in left toe(s) (ICD-10 - M79.675) 06/01/2023 Pain in left toe(s) (ICD-10 - M79.675) 06/01/2023 Atherosclerosis of [place] arteries of extremities with intermittent claudication, bilateral legs (ICD-10 - I70.213) 11/09/2023 Pain in left toe(s) (ICD-10 - M79.675) 08/24/2023 Atherosclerosis of [place] arteries of extremities with intermittent claudication, bilateral legs (ICD-10 - I70.213) 01/25/2024 Pain in left toe(s) (ICD-10 - M79.675) 03/28/2024 Atherosclerosis of [place] arteries of extremities with intermittent claudication, bilateral legs (ICD-10 - I70.213) 01/25/2024 Atherosclerosis of [place] arteries of extremities with intermittent claudication, bilateral [...] well as the Amputation Prevention Guide. 11/09/2023 Atherosclerosis of [place] arteries of extremities with intermittent claudication, bilateral [...] Appt Details Provider Name:PIETER WALSH, 08:10:00 AM, [address], [facility], [place], [place], [phone], Insurance Providers Payer Name Payer Address Payer Phone Subscriber Number Group Number Insured Name Patient Relationship to Insured Coverage Start Date Coverage End Date Medicare Part B [place] [address] [place] [id number] KLAUDIA HALEY Self - patient is the insured
--- OUTSIDE RECORDS SUMMARY | 2024-04-14 12:26 | XMS_ITS | Patient Health Summary ---
Author Organization [facility] Address [address] [place] [address] Care Team Providers Care Manufacturing Finance Manager Name Role Phone Sandi Alfaro NETWORK CONTROL SUPERVISOR-SURVEILLANCE SENSOR OFFICER Primary Care Provider Note from [facility],non-owned Affiliates and Associated Physician Practices is amultiple site organization consisting of ambulatory clinics and hospital sitesin [place], [place], [place] and [place]. This disclosure is being madepursuant to the Care Everywhere program and may not contain all information available regarding this patient. Last updated 17.[facility] Allergies No known active allergies Medications * [...] 85 05/28/2018 7:58 AM CDT Temperature 36.7 C (98 F) 05/28/2018 7:58 AM CDT Respiratory Rate 20 [...] of5 resultswithin the time period is included. [facility] Glucose WB/POC 131(H) 70 - 115 mg/dL 05/28/2018 6:57 AM CDT [facility] Specimen Type Arterial/C apillary 05/28/2018 6:57 AM CDT [facility] Blood BLOOD SPECIMEN / Unknown 05/28/2018 6:52 AM CDT 05/28/2018 6:57 AM CDT [facility] - 05/28/2018 6:57 AM CDT SUPERVISOR WET END: MARIZOL BOOKER Erick Vera MD LAB - POINT OF CARE ORDERABLES Performing Organization Address City/State/[facility] Co de Phone Number [address] [phone] * PLATELET ANTIBODY DRUG DEPENDENT (05/28/2018 4:14 AM CDT) [facility] Patient Serum Without Drug Comment 06/16/2018 4:11 PM CDT [facility] ([facility]) Comment:Reference lab report sent via fax. Blood BLOOD SPECIMEN / Unknown Lab Venipuncture / Unknown 05/28/2018 4:14 AM CDT 05/28/2018 4:32 AM CDT [facility] - 06/16/2018 4:11 PM CDT Performed at: [facility] [employer] [employer] [place] [address] [place] [address] [place] [address] [phone] Sales Representative Business Courses: Husam Reyes MD, Phone: [phone] Tone Brower MD LAB - COAGULATION OR DERABLES [facility] ([facility]) [address] [place] [address], [facility] * (ABNORMAL) CBC W/O DIFFERENTIAL (05/27/2018 11:30 PM [facility]) Only the most recent of4 resultswithin the time period is included. WBC 7.1 3.5 - 10.5 10 3/uL 05/28/2018 12:01 AM [facility] RBC 4.15(L) 4.30 - 5.70 10 6/uL 05/28/2018 12:01 AM [facility] Hemoglobin 12.8(L) 13.5 - 17.5 g/dL 05/28/2018 12:01 AM [facility] Hematocrit 37.1(L) 39.0 - 50.0 % 05/28/2018 12:01 AM [facility] MCV 89.4 81.0 - 97.0 fL 05/28/2018 12:01 AM [facility] MCH 30.8 28.0 - 34.0 pg 05/28/2018 12:01 AM [facility] MCHC 34.5 32.0 - 36.0 g/dL 05/28/2018 12:01 AM [facility] Platelet Count 135(L) 150 - 400 10 3/uL 05/28/2018 12:01 AM [facility] RDW-SD 44.0 36.0 - 50.0 fL 05/28/2018 12:01 AM [facility] RDW-CV 13.5 11.2 - 14.8 % 05/28/2018 12:01 AM [facility] MPV 11.4 9.3 - 12.8 fL 05/28/2018 12:01 AM [facility] nRBC Absolute 0.00 0 10 3/uL 05/28/2018 12:01 AM [facility] nRBC Auto 0.0 0 /100 WBC 05/28/2018 12:01 AM [facility] Blood BLOOD SPECIMEN / Unknown Lab Venipuncture / Unknown 05/27/2018 11:30 PM CDT 05/27/2018 11:55 PM CDT Mehul Floyd MD LAB - HEMATOLOGY ORD HARSHA [facility] [address] [phone] * BASIC METABOLIC PANEL (CALCIUM TOTAL) (05/27/2018 11:30 PM CDT) Only the most recent of5 resultswithin the time period is included. BUN 17 7 - 26 mg/dL 05/28/2018 12:17 AM [facility] Creatinine 1.1 0.6 - 1.2 mg/dL 05/28/2018 12:17 AM [facility] Sodium 137 136 - 145 mmol/L 05/28/2018 12:17 AM [facility] Potassium 4.0 3.5 - 4.5 mmol/L 05/28/2018 12:17 AM [facility] Chloride 103 98 - 107 mmol/L 05/28/2018 12:17 AM [facility] CO2 24 22 - 29 mmol/L 05/28/2018 12:17 AM [facility] Glucose 102 70 - 115 mg/dL 05/28/2018 12:17 AM [facility] Calcium 9.4 8.4 - 10.2 mg/dL 05/28/2018 12:17 AM [facility] Anion Gap 14 8 - 18 05/28/2018 12:17 AM [facility] BUN/Creatinine Ratio 15 7 - 23 05/28/2018 12:17 AM [facility] Osmolality Calculated 286 270 - 300 mOsm/kg 05/28/2018 12:17 AM [facility] eGFR >60 >60 mL/min/1.7 3 m2 05/28/2018 12:17 AM [facility] Blood BLOOD SPECIMEN / Unknown Lab Venipuncture / Unknown 05/27/2018 11:30 PM CDT 05/27/2018 11:55 PM CDT Mehul Floyd MD LAB - CHEMISTRY LORENZA BULLARD [address] [phone] * PHOSPHORUS BLOOD (05/27/2018 11:30 PM CDT) Only the most recent of4 resultswithin the time period is included. Phosphorus 3.2 2.3 - 4.7 mg/dL 05/28/2018 12:17 AM CDT [facility] Blood BLOOD SPECIMEN / Unknown Lab Venipuncture / Unknown 05/27/2018 11:30 PM CDT 05/27/2018 11:55 PM CDT Mehul Floyd MD LAB - CHEMISTRY LORENZA BULLARD Performing Organization Address [facility] Co de Phone Number [address] [phone] * MAGNESIUM BLOOD (05/27/2018 11:30 PM CDT) Only the most recent of4 resultswithin the time period is included. Magnesium 1.7 1.6 - 2.6 mg/dL 05/28/2018 12:17 AM CDT [facility] Blood BLOOD SPECIMEN / Unknown Lab Venipuncture / Unknown 05/27/2018 11:30 PM CDT 05/27/2018 11:55 PM CDT Mehul Floyd MD LAB - CHEMISTRY LORENZA BULLARD Performing Organization Address [facility] Co de Phone Number [address] [phone] * MRI BRAIN WO CONTRAST (05/27/2018 12:51 PM CDT) Only the most recent of2 resultswithin the time period is included. Anatomical Region Laterality Modality Head Magnetic Resonan ce 05/27/2018 12:3 9 PM CDT Impressions 05/27/2018 12:43 PM CDT IMPRESSION: No MR evidence of acute infarct or hemorrhage. This report was electronically signed by CARMELA LAZAR on 05/27/2018 12:43 PM . Narrative 05/27/2018 12:43 [...] posterior fossa structures are within normal limits. Flow voids of major intracranial vessels are noted. [...] <0.010 <0.032 ng/mL 05/27/2018 9:02 AM CDT [facility] Blood BLOOD SPECIMEN / Unknown Venipuncture / Unknown 05/27/2018 8:28 AM CDT 05/27/2018 8:28 AM CDT Mehul Floyd MD LAB - CHEMISTRY ORDKristal BULLARD Performing Organization Address City/[facility]/ZIP Co de Phone Number [address] [phone] * HIV-1 HIV-2 ANTIGEN/ANTIBODY (05/26/2018 4:21 PM CDT) [facility] HIV Antigen/Antibod y 1 & 2 Non-reacti ve Non-react kendell 05/26/2018 5:12 PM CDT [facility] Comment: Neither HIV-1 p24 Antigen nor HIV-1/HIV-2 Antibodies are detected. Blood BLOOD SPECIMEN / Unknown Venipuncture / Unknown 05/26/2018 4:21 PM CDT 05/26/2018 4:26 PM CDT Jim Ann MD LAB - HEMATOLOGY ORD HARSHA [address] [phone] * HEPATITIS C AB SCREEN RFLX NAAT QUANT (05/26/2018 4:21 PM CDT) Pathologist [facility] Hepatitis C Antibody Non-react kendell Non-reac tive 05/26/2018 5:13 PM CDT [facility] Comment: Hepatitis C Antibody screen indicates [...] Ann MD LAB - CHEMISTRY LORENZA BULLARD [facility] Organization Address City/State/ZIP Co de Phone Number [facility] [address] [place] [address], [facility] [phone] * DRUG SCREEN TOX URINE PANEL (05/26/2018 3:09 PM CDT) [facility] Amphetamines Screen Urine Negative Negative: < 1000 ng/mL 05/26/2018 3:23 PM CDT [facility] Barbiturates Screen Urine Negative Negative: < 200 ng/mL 05/26/2018 3:23 PM CDT [facility] Benzodiazepine Screen Urine Negative Negative: < 200 ng/mL 05/26/2018 3:23 PM CDT [facility] Opiates Urine Negative Negative: < 300 ng/mL 05/26/2018 3:23 PM CDT [facility] Cocaine Metabolites Urine Negative Negative: < 300 ng/mL 05/26/2018 3:23 PM CDT [facility] Phencyclidine Screen Urine Negative Negative: < 25 ng/ml 05/26/2018 3:23 PM T [facility] Cannabinoids Screen Urine Negative Negative: <50 ng/mL 05/26/2018 3:23 PM CDT [facility] Methadone Screen Urine Negative Negative: < 300 ng/mL 05/26/2018 3:23 PM CDT [facility] Urine URINE / Unknown Collection / Unknown 05/26/2018 3:09 PM CDT 05/26/2018 3:09 PM CDT Narrative [facility] - 05/26/2018 3:23 PM CDT The Urine Toxicology Screening Panel does not screen for Propoxyphene, Meprobamate, Carisoprodol, Trazodone, iage-qwd-pmtqhzc medications and/or volatiles (Acetone, Isopropanol, Methanol or Ethylene Glycol). Ethanol, Salicylate, Acetaminophen, Tricyclic Antidepressants and several therapeutic drugs may be individually assayed in serum or plasma specimen. Toxicology testing by the [facility] is an aid to medical diagnosis and treatment of patients. No documented chain of custody was maintained. Results are intended to be used for clinical purposes only. Mehul Floyd MD LAB - URINE CHEMISTR Y ORDERABLES Performing Organization Address City/[facility]/ZIP Co de Phone Number [facility] [address] [phone] * EKG 12-LEAD (05/26/2018 2:35 PM CDT) Only the most recent of3 resultswithin the time period is included. Ventricular Rate 78 BPM [facility] Atrial Rate 78 BPM [facility] P-R Interval 152 ms [facility] QRS Duration ms 96 ms [facility] Q-T Interval ms 422 ms [facility] QTC Calculation (Bezet) 481 ms [facility] Calculated P Herod 47 degrees [facility] Calculated R Herod 2 degrees [facility] Calculated T Herod 36 degrees [facility] Interpretation EKG NORMAL SINUS RHYTHM INCOMPLETE RIGHT BUNDLE BRANCH BLOCK PROLONGED QT ABNORMAL ECG WHEN COMPARED WITH ECG OF 20-AUG-2016 05:38, NO SIGNIFICANT CHANGE WAS FOUND Confirmed by Max INGRAM, DEMARCUS ([id number]), graphic editor Jax Colmenares ([id number]) on 06/09/2018 10:06:25 PM [facility] 05/26/2018 2:35 PM CDT 06/09/2018 10:06 PM CDT Ruiz Chávez MD ECG ORDERABLES Performing Organization Address [facility] Co de Phone Number [facility] * TYPE + SCREEN PANEL (05/26/2018 2:00 PM CDT) Only the most recent of2 resultswithin the time period is included. [facility] Antibody Screen NEG 9 3:08 PM CDT [facility] ABO Rh A POS 05/26/2018 3:08 PM CDT [facility] Blood Bank BLOOD SPECIMEN / Unknown Venipuncture / Unknown 05/26/2018 2:00 PM CDT 05/26/2018 2:13 PM CDT Ruiz Chávez MD LAB - BLOOD BANK ORD ERABLES Performing Organization Address [facility]/ZIP Co de Phone Number [facility] [address] * PT-INR [facility] (05/26/2018 1:59 PM CDT) Only the most recent of2 resultswithin the time period is included. PT 12.8 12.1 - 14.8 Seconds 05/26/2018 2:14 PM CDT [facility] INR 1.0 See Comment 05/26/2018 2:14 PM CDT [facility] Comment: The suggested therapeutic range for standard coumadin (warfarin) therapy is an INR of 2.0-3.0. For high-risk patients (Mechanical Mitral Valve Prosthesis, etc.), the suggested prophylactic therapeutic range is an INR of 2.5-3.5. Blood BLOOD SPECIMEN / Unknown Venipuncture / Unknown 05/26/2018 1:59 PM CDT 05/26/2018 2:05 PM CDT Ruiz Chávez MD LAB - COAGULATION OR DERABLES Performing Organization Address [facility] Co de Phone Number [facility] [address] [phone] * (ABNORMAL) HEMOGLOBIN A1C (05/26/2018 1:59 PM CDT) Only the most recent of2 resultswithin the time period is included. Hemoglobin A1c 6.9(H) 4.4 - 6.3 % 05/27/2018 1:45 PM CDT [facility] Comment:Hemoglobin variant d etected. Abnormal hemoglobin may not form glycated product at the same rate as hemoglobin A and/or hemoglobin variant may interfere with the accurate measurement of HbA1C. Consider measurement of HbA1C by alternative method. Recommend hemoglobin electrophoresis to evaluate the variant hemoglobin if clinically indicated. Estimated Average Glucose 151 mg/dL 05/27/2018 1:45 PM CDT [facility] Comment: HbA1c Interpretation: Treatment target values recommended by ADA and other clinical organizations should be used to evaluate metabolic control in patients. Treatment Target Values: Normal : < 5.7% Pre-diabetes: 5.7-6.4% Diabetes: Equal to or greater than 6.5% Reference: [place] [employer] Standards of Care in Diabetes -2014 In patients 70 years and older consider HbA1c target range of 7.0-7.5% Reference: Diabetes Mellitus in Older People: Position Statement on behalf of the International Association of Gerontology and Geriatrics (IAGG), the Diabetes Working Democrat for Older People (EDWPOP), and the International Task Force of Experts in Diabetes. Anil Irvin et al. J [place] [employer] Association. 2012 Test results diagnostic of diabetes should be repeated for confirmation. The Sebia Capillary 2 assay for the measurement of HbA1c is a National Glycohemoglobin Standardization Program (NGSP)certified method. Blood BLOOD SPECIMEN / Unknown Venipuncture / Unknown 05/26/2018 1:59 PM CDT 05/26/2018 2:19 PM CDT Mehul Floyd MD LAB - CHEMISTRY LORENZA BULLARD [facility] Organization Address City/State/ZIP Co de Phone Number [address] [phone] * (ABNORMAL) CBC W AUTO DIFFERENTIAL (05/26/2018 1:59 PM CDT) Only the most recent of3 resultswithin the time period is included. WBC 8.0 3.5 - 10.5 10 3/uL 05/26/2018 2:08 PM [facility] RBC 4.70 4.30 - 5.70 10 6/uL 05/26/2018 2:08 PM [facility] Hemoglobin 14.3 13.5 - 17.5 g/dL 05/26/2018 2:08 PM [facility] Hematocrit 42.0 39.0 - 50.0 % 05/26/2018 2:08 PM [facility] MCV 89.4 81.0 - 97.0 fL 05/26/2018 2:08 PM [facility] MCH 30.4 28.0 - 34.0 pg 05/26/2018 2:08 PM [facility] MCHC 34.0 32.0 - 36.0 g/dL 05/26/2018 2:08 PM [facility] Platelet Count 158 150 - 400 10 3/uL 05/26/2018 2:08 PM [facility] RDW-SD 44.7 36.0 - 50.0 fL 05/26/2018 2:08 PM [facility] RDW-CV 13.7 11.2 - 14.8 % 05/26/2018 2:08 PM [facility] MPV 10.9 9.3 - 12.8 fL 05/26/2018 2:08 PM [facility] nRBC Absolute 0.00 0 10 3/uL 05/26/2018 2:08 PM [facility] nRBC Auto 0.0 0 /100 WBC 05/26/2018 2:08 PM [facility] Neutrophils % 69.0 35.0 - 70.0 % 05/26/2018 2:08 PM [facility] Lymphocytes % 16.7(L) 19.7 - 55.1 % 05/26/2018 2:08 PM [facility] Monocytes % 9.7 3.0 - 15.0 % 05/26/2018 2:08 PM [facility] Eosinophils % 4.1 0.0 - 6.0 % 05/26/2018 2:08 PM [facility] Basophil % 0.1 0.0 - 1.5 % 05/26/2018 2:08 PM [facility] Neutrophils Absolute 5.5 1.6 - 7.0 10 3/uL 05/26/2018 2:08 PM [facility] Lymphocyte Absolute 1.3 0.8 - 2.9 10 3/uL 05/26/2018 2:08 PM [facility] Monocytes Absolute 0.78(H) 0.14 - 0.66 10 3/uL 05/26/2018 2:08 PM [facility] Eosinophils Absolute 0.33 0.00 - 0.45 10 3/uL 05/26/2018 2:08 PM [facility] Basophils Absolute 0.01 0.00 - 0.06 10 3/uL 05/26/2018 2:08 PM [facility] Immature Granulocytes % 0.4 0.0 - 1.0 % 05/26/2018 2:08 PM [facility] Blood BLOOD SPECIMEN / Unknown Venipuncture / Unknown 05/26/2018 1:59 PM CDT 05/26/2018 2:05 PM CDT Ruiz Chávez MD LAB - HEMATOLOGY ORD ERABLES [facility] [address] [phone] * (ABNORMAL) COMPREHENSIVE METABOLIC PANEL (05/26/2018 1:59 PM CDT) BUN 25 7 - 26 mg/dL 05/26/2018 2:23 PM [facility] Creatinine 1.1 0.6 - 1.2 mg/dL 05/26/2018 2:23 PM [facility] Sodium 138 136 - 145 mmol/L 05/26/2018 2:23 PM [facility] Potassium 4.1 3.5 - 4.5 mmol/L 05/26/2018 2:23 PM [facility] Chloride 101 98 - 107 mmol/L 05/26/2018 2:23 PM [facility] CO2 26 22 - 29 mmol/L 05/26/2018 2:23 PM [facility] Glucose 109 70 - 115 mg/dL 05/26/2018 2:23 PM [facility] Calcium 9.9 8.4 - 10.2 mg/dL 05/26/2018 2:23 PM [facility] Protein Total 7.8 6.0 - 8.3 g/dL 05/26/2018 2:23 PM [facility] Albumin 4.0 3.4 - 5.0 g/dL 05/26/2018 2:23 PM [facility] Bilirubin Total 0.8 0.2 - 1.2 mg/dL 05/26/2018 2:23 PM [facility] Alkaline Phosphatase 57 40 - 150 Units/L 05/26/2018 2:23 PM [facility] ALT 56(H) 0 - 55 Units/L 05/26/2018 2:23 PM [facility] AST 44(H) 5 - 34 Units/L 05/26/2018 2:23 PM [facility] Anion Gap 15 8 - 18 05/26/2018 2:23 PM [facility] BUN/Creatinine Ratio 23 7 - 23 05/26/2018 2:23 PM T [facility] Osmolality Calculated 291 270 - 300 mOsm/kg 05/26/2018 2:23 PM [facility] Albumin/Globulin Ratio 1.1 1.1 - 2.3 05/26/2018 2:23 PM [facility] eGFR >60 >60 mL/min/1.7 3 m2 05/26/2018 2:23 PM [facility] Blood BLOOD SPECIMEN / Unknown Venipuncture / Unknown 05/26/2018 1:59 PM CDT 05/26/2018 2:05 PM CDT Ruiz Chávez MD LAB - CHEMISTRY LORENZA BULLARD [facility] Organization Address City/State/ZIP Co de Phone Number [facility] [address] [place] [address] * (ABNORMAL) LIPID PROFILE (05/26/2018 1:59 PM CDT) Only the most recent of2 resultswithin the time period is included. Cholesterol Total 125 <200 mg/dL 05/26/2018 2:46 PM [facility] HDL 26(L) >40 mg/dL 05/26/2018 2:46 PM [facility] Comment: ATP III Classification of HDL Cholesterol: <40 mg/dL: Considered a major risk factor. >60 mg/dL: Considered a negative risk factor. LDL Calculated 38 <100 mg/dL 05/26/2018 2:46 PM [facility] Comment: ATP III Classification of LDL Cholesterol: <100 mg/dL: Optimal 100 - 129 mg/dL: Near Optimal/Above Optimal 130 - 159 mg/dL: Borderline High 160 - 189 mg/dL: High >190 mg/dL: Very High Triglycerides 307(H) <150 mg/dL 05/26/2018 2:46 PM [facility] Comment: ATP III Classification of Triglycerides: <150 mg/dL: Normal 150 - 199 mg/dL: Borderline High 200 - 400 mg/dL: High >500 mg/dL: Very High Blood BLOOD SPECIMEN / Unknown Venipuncture / Unknown 05/26/2018 1:59 PM CDT 05/26/2018 2:19 PM CDT Mehul Floyd MD LAB - CHEMISTRY LORENZA BULLARD [facility] Organization Address City/State/ZIP Co de Phone Number [address] [phone] * CT ANGIO BRAIN NECK STROKE (05/26/2018 [...] stenosis. Report dictated by Shaun Garland MD (professor of radiology). I, Dr. YOSELYN MURILLO have personally reviewed and interpreted this examination/study. This report was electronically signed by YOSELYN MURILLO on 05/26/2018 2:09 PM . Narrative 05/26/2018 2:09 [...] Outside hospital CT head dated 05/26/2018 from [facility], CT head dated 05/19/2018, MRI brain [...] the intracranial vertebrals, basilar artery, and the creasing machine operator appear unremarkable. CTA NECK: Noted normal variant [...] Outside hospital CT head dated 05/26/2018 from [facility], CT head dated 05/19/2018, MRI brain [...] circulation, the intracranial vertebrals, basilarartery, and the creasing machine operator appear unremarkable. CTA NECK: Noted normal variant [...] vertebralstenosis. Report dictated by Shaun Garland MD (professor of radiology). Dr. YOSELYN Roman have personally reviewed and [...] stenosis. Report dictated by Shaun Garland MD (professor of radiology). Dr. YOSELYN Roman have personally reviewed and interpreted this examination/study. This report was electronically signed by YOSELYN MURILLO on 05/26/2018 2:09 PM . Narrative 05/26/2018 2:09 [...] Outside hospital CT head dated 05/26/2018 from [facility], CT head dated 05/19/2018, MRI brain [...] the intracranial vertebrals, basilar artery, and the creasing machine operator appear unremarkable. CTA NECK: Noted normal variant [...] Outside hospital CT head dated 05/26/2018 from [facility], CT head dated 05/19/2018, MRI brain [...] circulation, the intracranial vertebrals, basilarartery, and the creasing machine operator appear unremarkable. CTA NECK: Noted normal variant [...] vertebralstenosis. Report dictated by Shaun Garland MD (professor of radiology). I, Dr. YOSELYN MURILLO have personally reviewed and interpreted this examination/study. This report was electronically signed by YOSELYN MURILLO on 05/26/2018 2:09 PM . Ruiz Chávez MD CT ORDERABLES * (ABNORMAL) GLUCOSE ACCUCHECK (08/21/2016 12:30 PM CDT) Only the most recent of6 resultswithin the time period is included. Glucose, Fingerstick 154(H) 70-115mg/d L mg/dL [facility] N[facility]EZ) Comment:Machine Ii Trimmer: YUNG RANDI ILYA 08/21/2016 12:3 0 PM CDT Gera Magallon MD LAB - CHEMISTRY LORENZA BULLARD [facility] Organization Address City/State/ZIP Co de Phone Number [facility] NUNEZ) * CT HEAD WO CONTRAST (08/20/2016 2:01 PM CDT) Anatomical Region Laterality Modality Head Other Impressions 08/20/2016 3:20 PM CDT IMPRESSION: 1. No acute intracranial hemorrhage. This report was electronically signed by REBECCA LIND M.D. on 08/20/2016 3:20 PM . Narrative 08/20/2016 3:20 [...] CK Total 87 30 - 200 Units/L [facility] CK-MB 0.7 0.0 - 6.6 ng/mL [facility] Blood specimen (specimen) BLOOD SPECIMEN / Unknown 08/20/2016 9:00 AM CDT 08/20/2016 9:14 AM CDT Bishop Walker MD [facility] Organization Address City/State/ZIP Co de Phone Number [address] [phone] * DRUG ABUSE PANEL 10-20+ETHANOL URINE NO CONFIRM (08/20/2016 7:07 AM CDT) Amphetamines Screen Urine Negative Negative: < 1000 ng/mL [facility] Barbiturates Screen Urine Negative Negative: < 200 ng/mL [facility] Benzodiazepine Screen Urine Negative Negative: < 200 ng/mL [facility] Opiates Urine Negative Negative: < 300 ng/mL [facility] Cocaine Metabolites Urine Negative Negative: < 300 ng/mL [facility] Phencyclidine Screen Urine Negative Negative: < 25 ng/ml [facility] Cannabinoids Screen Urine Negative Negative: <50 ng/mL [facility] Methadone Screen Urine Negative Negative: < 300 ng/mL [facility] Urine specimen (specimen) URINE / Unknown 08/20/2016 7:07 AM CDT 08/20/2016 7:22 AM CDT Narrative [facility] - 08/20/2016 8:03 AM CDT The Urine Toxicology Screening Panel does not screen for Propoxyphene, Meprobamate, Carisoprodol, Trazodone, wetj-dkg-gcqemko medications and/or volatiles (Acetone, Isopropanol, Methanol or Ethylene Glycol). Ethanol, Salicylate, Acetaminophen, Tricyclic Antidepressants and several therapeutic drugs may be individually assayed in serum or plasma specimen. Toxicology testing by the [facility] is an aid to medical diagnosis and treatment of patients. No documented chain of custody was maintained. Results are intended to be used for clinical purposes only. Bishop Walker MD LAB - URINE CHEMISTR Y ORDERABLES Performing Organization Address City/[facility]/ZIP Co de Phone Number [address] [phone] * (ABNORMAL) HEPATIC FUNCTION PANEL (08/20/2016 5:28 AM CDT) Protein Total 6.8 6.0 - 8.3 g/dL [facility] Albumin 3.5 3.4 - 5.0 g/dL [facility] Bilirubin Total 0.8 0.2 - 1.2 mg/dL [facility] Bilirubin Conjugated 0.2 0.0 - 0.5 mg/dL [facility] Bilirubin Unconjugated 0.6 Unconjugated Bilirubin is a calculated value: Reference ranges have not been established. mg/dL [facility] Alkaline Phosphatase 55 40 - 150 Units/L [facility] ALT 69(H) 0 - 55 Units/L [facility] AST 46(H) 5 - 34 Units/L [facility] Albumin/Globulin Ratio 1.1 1.1 - 2.3 [facility] Blood specimen (specimen) BLOOD SPECIMEN / Unknown 08/20/2016 5:28 AM CDT 08/20/2016 5:32 AM CDT Bishop Walker MD LAB - CHEMISTRY ORDE RABLES Performing Organization Address City/[facility]/ZIP Co de Phone Number [address] [phone] * ECHO W DOPPLER AND COLOR FLOW [...] electronically signed by REBECCA LIND M.D. on 08/20/2016 7:24 AM . Narrative 08/20/2016 7:24 [...] CDT) APTT 27.5 23.0 - 38.4 Seconds [facility] Comment:Suggested therapeuti c range for full dose I.V. heparin therapy for venous thromboembolism is 66.0-91.0 seconds. Blood specimen (specimen) BLOOD SPECIMEN / Unknown 08/19/2016 6:11 PM CDT 08/19/2016 6:11 PM CDT Narrative [facility] - 08/19/2016 6:23 PM CDT Please ensure that the aPTT specimen is received in the clinical lab within 1 hour of collection if it is used for therapeutic heparin monitoring. Processing of heparinized specimens older than 1 hour may result in inaccurate test results. Is patient on Heparin, Argatroban or Dabigatran?->N Bishop Walker MD LAB - COAGULATION OR DERABLES [address] [phone] * CULTURE URINE (10/19/2013 11:31 AM CDT) Only the most recent of2 resultswithin the time period is included. Culture Urine No Growth of >=100 CFU/ml after 48 Hours [facility] Urine specimen (specimen) URINE SPECIMEN OBTAINED BY CLEAN CATCH PROCEDURE / Unknown 10/19/2013 11:31 AM CDT 10/19/2013 3:49 PM CDT Narrative [facility] - 10/21/2013 3:11 PM CDT EricSpecalexandrian#[id number] Eric Loc//Bed: 3 [facility]/316/02 CLN CATCH U @ CHRISTIANNE DATE was changed from 10/18/13 to 10/19/13 @ by DELICIA. Historical Provider LAB - MICROBIOLOG Y ORDERABLES [address] [phone] Care Teams Manufacturing Finance Manager Relationship Specialty Start Date End Date Sandi Alfaro, NETWORK CONTROL SUPERVISOR-SURVEILLANCE SENSOR OFFICER [address] [place] [id number] PCP - General 08/27/21
--- OUTSIDE RECORDS SUMMARY | 2024-04-14 12:26 | XMS_ITS | Referral Summary ---
Author Organization [facility] Address [address] [place] [address] Care Team Providers Care Inside Sales Professional Name Role Phone Sandi Alfaro PROFESSOR OF PSYCHOLOGY-FINAL EXPENSE AGENT Primary Care Provider Source Comments [facility],non-owned Affiliates and Associated Physician Practices is amultiple site organization consisting of ambulatory clinics and hospital sitesin [place], [place], [place] and [place]. This disclosure is being madepursuant to the Care Everywhere program and may not contain all information available regarding this patient. Last updated 17.[facility] Allergies No known active allergies Medications * [...] ve Non-react kendell 05/26/2018 5:12 PM CDT [facility] Comment: Neither HIV-1 p24 Antigen nor HIV-1/HIV-2 Antibodies are detected. Blood BLOOD SPECIMEN / Unknown Venipuncture / Unknown 05/26/2018 4:21 PM CDT 05/26/2018 4:26 PM CDT Jim Ann MD LAB - HEMATOLOGY ORD ERABLES [facility] [address] [place] [address] * HEPATITIS C AB SCREEN RFLX NAAT QUANT (05/26/2018 4:21 PM CDT) Hepatitis C Antibody Non-react kendell Non-reac tive 05/26/2018 5:13 PM CDT [facility] Comment: Hepatitis C Antibody screen indicates [...] Ann MD LAB - CHEMISTRY LORENZA BULLARD [address] [phone] from Last 3 Months or Most Recently Relevant to Health Maintenance Advance Directives * Full Code (Latest Code Status on File) Date Activated Date Inactivated Comments 05/26/2018 2:01 PM 05/28/2018 11:56 AM Care Teams Inside Sales Professional Relationship Specialty Start Date End Date Sandi Alfaro, PROFESSOR OF PSYCHOLOGY-FINAL EXPENSE AGENT [address] [place] [id number] PCP - General 08/27/21
--- OUTSIDE RECORDS SUMMARY | 2024-04-14 12:26 | XMS_ITS | Encounter Summary ---
Author Organization [facility] Address [address] [place] [address] Care Team Providers Care Bulk Plant Agent Name Role Phone Sandi Alfaro Primary Care Provider [phone] Sandi Alfaro Unavailable [phone] Cheryl Huston RN Unavailable Unavailable Encounter Details Date Type Department Care Team (Late st Contact Info) Description 05/13/2021 [employer] Message Enc [facility] Multispecialty Care - [facility] [address] [place] [address] Eliza, [facility] Provider CPAP Social History Tobacco Use Types Packs/Day Years Used Date Smoking Tobacco: Every Day Cigarettes 0.3 40 Smokeless Tobacco: Never Comments:want to quit but gary s alot of stress right [id number] smoking about 3-4 cigaretts a day Alcohol Use Standard Drinks/Week Comments Yes 0 (1 standard drink = 0.6 oz pur e alcohol) very rarely 6 beers/year PHQ-2 Answer Date Recorded PHQ-2 Score - If the patient scores above 3, please move on to questions 3-9 4 01/23/2021 Sex and Gender Information Value Date Recorded Sex Assigned at Male 03/31/2024 8:58 AM NURSING HOME ASSISTANT Legal Sex Male 8:01 PM CDT Gender [...] st Contact Info) Description 05/05/2024 8:00 AM NURSING HOME ASSISTANT Office Visit [facility] Family & Internal Medicine [address] [phone] Sandi Alfaro APNP [address] [place] [address] documented as of this encounter Visit Diagnoses Not on filedocumented in this encounter Additional Health Concerns Infection Onset Date Last Indicated Resolved Time COVID-19 Rule Out 05/12/2023 05/12/2023 05/13/2023 12:01 AM CDT Influenza - Seasonal 05/14/2023 05/14/2023 024 12:32 AM CDT Assessment Noted Time PHQ-9 Depression Total Score: 7 01/24/20 21 1:37 PM NURSING HOME ASSISTANT documented as of this encounter Care Teams Bulk Plant Agent Relationship Specialty Start Date End Date Sandi Alfaro APNP Family & Internal Medicine [address] [phone] PCP - General ADVANCED PRACTICE DYNAMIC ETCHING PROCESSOR 04/28/17 Sandi Alfaro APNP [address] [place] [address] PCP - Med Group - MSSP Attributed Provider 03/02/15 03/01/22 Cheryl Huston, trim machine adjuster (Ambulatory) REGISTERED NURSE 03/23/19 documented as of this encounter
--- OUTSIDE RECORDS SUMMARY | 2024-04-14 12:26 | XMS_ITS ---
Author Organization [facility] Address [address] [place], [place] [id number] Care Team Providers Care Real Estate Financial Analyst Name Role Phone PIETER WALSH Unavailable [phone] Sandi Alfaro Unavailable Unavailable Allergies No Known [...] clotrimazole 10 MG/ML Topical Cream *Reorder from [employer] for eRx and Interaction Alerts* 7 Active betamethasone 0.5 MG/ML / clotrimazole 10 MG/ML Topical Cream [Lotrisone] CUTANEOUS betamethasone 0.5 MG/ML / clotrimazole 10 MG/ML Topical Cream [Lotrisone]Original Medicationbetamethasone 0.5 MG/ML / clotrimazole 10 MG/ML Topical Cream [Lotrisone] *Reorder from [employer] for eRx and Interacti 7 Active Augmented betamethasone 0.5 MG/ML Topical Cream CUTANEOUS Augmented betamethasone 0.5 MG/ML Topical CreamOriginal MedicationAugmented betamethasone 0.5 MG/ML Topical Cream *Reorder from [employer] for eRx and Interaction Alerts* 7 Active clobetasol propionate 0.0005 MG/MG Topical Ointment [Temovate] CUTANEOUS clobetasol propionate 0.0005 MG/MG Topical Ointment [Temovate]Original Medicationclobetasol propionate 0.0005 MG/MG Topical Ointment [Temovate] *Reorder from [employer] for eRx and Interaction Alerts* 7 Active clotrimazole 10 MG/ML Topical Cream CUTANEOUS clotrimazole 10 MG/ML Topical CreamOriginal Medicationclotrimazole 10 MG/ML Topical Cream *Reorder from [employer] for eRx and Interaction Alerts* 7 Active Encounters Encounter Location Date Provider Diagnosis [facility] [address] [place], [place] [id number] 03/28/2024 PIETER SNOOK Tinea unguium B35.1 ; Pain in right toe(s) M79.674 ; Pain in left toe(s) M79.675 ; 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 Provider Name:PIETER WALSH, 08:10:00 AM, [address], [address], [id number], Progress Notes * SUDHASARA BACAITH BDOB:[birth year] (63 yo M)Acc No.[id number]:03/28/2024 Patient: KLAUDIA DUONG Provider: Kristal Walsh DPM :1960 A ge:63 Y S ex:Male Date:03/28/2024 Address:[address] [place] [address] [id number] Subjective: * Chief Complaints: * Mundo gonzales presents for at-risk foot care . The [...] by Dr. Alfaro was March 2024., Initials LB. * Medical History: * Surgical History: * Hospitalization/Major Diagno stic Procedure: * Family History: F ather: PRN - [...] Current every day smoker. * Medications: T akingAugmented betamethasone 0.5 MG/ML Topical Cream CUTANEOUS , Notes to Pharmacist: Augmented betamethasone 0.5 MG/ML Topical CreamOriginal MedicationAugmented betamethasone 0.5 MG/ML Topical Cream *Reorder from [employer] for eRx and Interaction Alerts*betamethasone 0.5 MG/ML / clotrimazole 10 MG/ML Topical Cream CUTANEOUS , Notes to Pharmacist: betamethasone 0.5 MG/ML / clotrimazole 10 MG/ML Topical CreamOriginal Medicationbetamethasone 0.5 MG/ML / clotrimazole 10 MG/ML Topical Cream *Reorder from [employer] for eRx and Interaction Alerts*betamethasone 0.5 MG/ML / clotrimazole 10 MG/ML Topical Cream [Lotrisone] CUTANEOUS , Notes to Pharmacist: betamethasone 0.5 MG/ML / clotrimazole 10 MG/ML Topical Cream [Lotrisone]Original Medicationbetamethasone 0.5 MG/ML / clotrimazole 10 MG/ML Topical Cream [Lotrisone] *Reorder from [employer] for eRx and Interacticlobetasol propionate 0.0005 MG/MG Topical Ointment [Temovate] CUTANEOUS , Notes to Pharmacist: clobetasol propionate 0.0005 MG/MG Topical Ointment [Temovate]Original Medicationclobetasol propionate 0.0005 MG/MG Topical Ointment [Temovate] *Reorder from [employer] for eRx and Interaction Alerts*clotrimazole 10 MG/ML Topical Cream CUTANEOUS , Notes to Pharmacist: clotrimazole 10 MG/ML Topical CreamOriginal Medicationclotrimazole 10 MG/ML Topical Cream *Reorder from [employer] for eRx and Interaction Alerts*Medication List reviewed and reconciled with the patientTaking Augmented betamethasone 0.5 MG/ML Topical Cream CUTANEOUS , Notes to Pharmacist: Augmented betamethasone 0.5 MG/ML Topical CreamOriginal MedicationAugmented betamethasone 0.5 MG/ML Topical Cream *Reorder from [facility] for eRx and Interaction Alerts*Taking betamethasone 0.5 MG/ML / clotrimazole 10 MG/ML Topical Cream CUTANEOUS , Notes to Pharmacist: betamethasone 0.5 MG/ML / clotrimazole 10 MG/ML Topical CreamOriginal Medicationbetamethasone 0.5 MG/ML / clotrimazole 10 MG/ML Topical Cream *Reorder from [facility] for eRx and Interaction Alerts*Taking betamethasone 0.5 MG/ML / clotrimazole 10 MG/ML Topical Cream [Lotrisone] CUTANEOUS , Notes to Pharmacist: betamethasone 0.5 MG/ML / clotrimazole 10 MG/ML Topical Cream [Lotrisone]Original Medicationbetamethasone 0.5 MG/ML / clotrimazole 10 MG/ML Topical Cream [Lotrisone] *Reorder from [facility] for eRx and InteractiTaking clobetasol propionate 0.0005 MG/MG Topical Ointment [Temovate] CUTANEOUS , Notes to Pharmacist: clobetasol propionate 0.0005 MG/MG Topical Ointment [Temovate]Original Medicationclobetasol propionate 0.0005 MG/MG Topical Ointment [Temovate] *Reorder from [facility] for eRx and Interaction Alerts*Taking clotrimazole 10 MG/ML Topical Cream CUTANEOUS , Notes to Pharmacist: clotrimazole 10 MG/ML Topical CreamOriginal Medicationclotrimazole 10 MG/ML Topical Cream *Reorder from [facility] for eRx and Interaction Alerts*Medication List reviewed and reconciled with the patient * Allergies: N .K.D.A.no[Allergies Verified] Objective: * Vitals: * Examination: P hysical [...] - M79.675 4 . A therosclerosis of pauma arteries of extremities with intermittent claudication, bilateral [...] Information: * Visit Code: * Procedure Codes: 78287 DEBRIDE NAIL, 6 OR MORE. Modifiers: Q8 * LE WEAVER Sign off status: Completed true * Provider: Kristal Walsh DPM Date: 0 03/28/2024 Generated for Michelle chi/Danielle/Nimesh on: 0 04/14/2024 12:25 PM SAMPLE WEAVER History and Physical Notes * HPI (History [...] Dr. Alfaro was March 2024., Initials LB Examination Category Sub-Category Detail Notes Category [...]
--- OUTSIDE RECORDS SUMMARY | 2024-04-14 12:26 | XMS_ITS | Clinical Summary ---
Author Organization [facility] [employer] Address [address] [place] [address] Care Team Providers Care Simulation Software Engineer Name Role Phone Sandi Alfaro MANAGED SERVICES SALES CONSULTANT-CITRUS FRUIT COLORER Primary Care Provider Source Comments [facility] [employer],non-owned Affiliates and Associated Physician Practices is amultiple site organization consisting of ambulatory clinics and hospital sitesin [place], [place], [place] and [place]. This disclosure is being madepursuant to the Care Everywhere program and may not contain all information available regarding this patient. Last updated 17.[facility] [employer] Allergies No known active allergies Medications * [...] - COLON CA SCREENING 1960 MEDICARE AWV 12 MONTHS 1960 DTAP/TDAP/TD VACCINES (1 - [...] ve Non-react kendell 05/26/2018 5:12 PM CDT [facility] Comment: Neither HIV-1 p24 Antigen nor HIV-1/HIV-2 Antibodies are detected. Blood BLOOD SPECIMEN / Unknown Venipuncture / Unknown 05/26/2018 4:21 PM CDT 05/26/2018 4:26 PM CDT Jim Ann MD LAB - HEMATOLOGY DEDE MCLEOD Performing Organization Address [facility] Co de Phone Number [address] [phone] * HEPATITIS C AB SCREEN RFLX NAAT QUANT (05/26/2018 4:21 PM CDT) Hepatitis C Antibody Non-react kendell Non-reac tive 05/26/2018 5:13 PM CDT [facility] Comment: Hepatitis C Antibody screen indicates no [...] - CHEMISTRY LORENZA BULLARD Performing Organization Address City/[facility]/ZIP Co de Phone Number [address] [phone] from Last 3 Months or Most Recently Relevant to Health Maintenance Insurance Payer Benefit Plan / Group Subscriber ID Effective Dates Phone Address Type MEDICARE WPS MEDICARE PART B [id number] 2015-Pres ent [address] [address] [place] [address] Medicare MEDICAID - OUT OF [facility] MEDICAID [id number] PUBLIC AID [id number] Effective for all dates [address] [address] [place] [address] Medicaid MEDICARE MEDICARE PART A AND B [id number] 2015-Pres ent [address] [place] [address] Medicare MEDICAID - [place] - [place] MED[place]ID [id number] Effective for all dates [address] [address] [place] [address] Medicaid [place] Advance Directives * Full Code (Latest Code Status on File) Date Activated Date Inactivated Comments 05/26/2018 2:01 PM 05/28/2018 11:56 AM Care Teams Simulation Software Engineer Relationship Specialty Start Date End Date Sandi Alfaro, MANAGED SERVICES SALES CONSULTANT-CITRUS FRUIT COLORER [facility] [place] [place] [address] PCP - General 08/27/21
--- OUTSIDE RECORDS SUMMARY | 2024-04-14 12:27 | XMS_ITS | Clinical Summary ---
Author Organization [facility] Address [address] [place] [address] Care Team Providers Care Speech Lang Path Therapist Name Role Phone Sandi Alfaro Primary Care Provider [phone] Cheryl Huston RN Unavailable Unavailable Allergies No [...] complication, without long-term current use of insulin ([facility]) USE 1 STRIP BY OTHER ROUTE 2 [...] 6 (six) hours as needed for Pain. Indications: Acute Pain < 3 Day Supply 10 [...] ons:Dyslipidemia associated with type 2 diabetes mellitus ([facility]HS/HCC) Inject 3 mg into the skin [...] heart failure type ([facility]/HCC) TAKE 1 TABLET BY MOUTH EVERYDAY AT BEDTIME 90 tablet 01/18/20 24 Active amLODIPine (NORVASC) 10 MG tabletIndications :Primary hypertension TAKE 1 TABLET BY MOUTH EVERY DAY 90 tablet 01/18/20 24 Active metFORMIN (GLUCOPHAGE) 1000 MG tabletIndications :Diabetic foot ([facility]) TAKE 1 TABLET BY MOUTH TWICE A [...] complication, without long-term current use of insulin ([facility]) Take 1 tablet (10 mg total) by mouth daily. 90 tablet 02/16/20 24 Active ondansetron (ZOFRAN-ODT) 4 MG disintegrating tabletIndications :Vertigo Take 1 tablet (4 mg total) by mouth every 8 (eight) hours as needed for Nausea. 30 tablet 03/22/19 25 Active losartan (COZAAR) 100 MG tabletIndications :Hypertensive heart disease with congestive heart failure, unspecified heart failure type ([facility]),Primary hypertension TAKE 1 TABLET BY MOUTH EVERY DAY 90 tablet 1 03/23/19 25 Active ALPRAZolam (XANAX) 0.25 MG tabletIndications :Mixed anxiety depressive disorder TAKE 1 TABLET (0.25 MG TOTAL) BY MOUTH 3 TIMES A DAY NEEDED FOR SLEEP Strength: 0.25 mg 30 tablet 03/30/19 25 Active albuterol sulfate HFA 108 (90 Base) MCG/ACT inhaler INHALE 2 PUFFS EVERY 4 - 6 HOURS NEEDED FOR SHORTNESS OF BREATH OR WHEEZING FOR 30 DAYS 02/25/20 24 Active ondansetron (ZOFRAN-ODT) 4 MG disintegrating tabletIndications :Vertigo Take 1 tablet (4 mg total) by mouth every 8 (eight) hours as needed for Nausea. 20 tablet 02/05/20 24 2024 Discontinued(R eorder) losartan (COZAAR) 100 MG tabletIndications :Hypertensive heart disease with congestive heart failure, unspecified heart failure type ([facility]),Primary hypertension Take 1 tablet (100 mg total) by mouth daily. 30 tablet 03/01/20 24 2024 Discontinued ALPRAZolam (XANAX) 0.25 MG tabletIndications :Mixed anxiety depressive disorder TAKE 1 TABLET (0.25 MG TOTAL) BY MOUTH 3 TIMES A DAY NEEDED FOR SLEEP Strength: 0.25 mg 30 tablet 03/01/20 24 2024 Discontinued(R eorder) Active Problems Problem Noted Date Diagnosed Date Thrombocytopenia 03/31/2024 Polyneuropathy associated wi th underlying disease ([facility]) 12/16/2023 Morbid (severe) obesity due to excess calories ([facility]) 05/15/2022 Body mass index (BMI) 40.0-44.9, adult ([facility]) 05/15/2022 Acute hyperglycemia 05/17/2021 Anxiety 05/17/2021 Arthritis 05/17/2021 Atypical syncope 05/17/2021 Calculus of left ureter 05/17/2021 Eczema 05/17/2021 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/17/2021 [facility] current use of anticoagulant therapy 0 05/17/2021 Peripheral neuropathy 05/17/2021 Rectal polyp 05/17/2021 Swelling of left lower extremity 05/17/2021 Tear of medial meniscus of knee 05/17/2021 Tobacco abuse 05/17/2021 Pain due to ureteral stent 05/17/2021 Cigarette nicotine dependence without complicati on 03/14/2019 Seasonal allergic rhinitis due to pollen 019 Chronic heart failure with p reserved ejection fraction ([facility]) 11/12/2018 Arthralgia of left hand 11/02/2018 Enchondroma of bone of hand, left 11/02/2018 Carpal tunnel syndrome on left 08/26/2018 Cryptogenic stroke ([facility]) 07/06/2018 Skin lesion of right arm 06/28/2018 Weakness 05/26/2018 Status post placement of implantable loop record er 10/13/2017 Overview (01/13/2018): Overview: [employer] Reveal Loop Recorder. Dx; Cryptogenic Stroke. DOI 10/12/[address] Willoughby. [facility] remote monitoring. TIA (transient ischemic attack) 10/06/2017 Mild emphysema ([facility]) 08/28/2017 Hepatic steatosis 08/28/2017 Memory loss 05/18/2017 Chest pain 04/30/2017 S/P coronary artery stent placement 12/17/2016 Hemorrhoids 10/03/2016 Hearing loss 08/01/2016 Decreased hearing 07/17/2016 Chronic nausea 03/27/2016 Diabetic foot ([facility]) 03/10/2016 Abdominal wall bulge 03/10/2016 CHF (congestive heart failure) ([facility]) 01/14/2016 Peripheral edema 12/19/2015 Tinnitus 11/08/2015 History of kidney stones 10/03/2015 Insomnia 05/07/2015 Chronic cough 03/20/2015 Hypertensive heart disease w ith congestive heart failure ([facility]) 02/20/2015 Overview (01/13/2018): Overview: Hypertensive heart disease with diastolic heart failure Coronary artery disease of n ative artery of [place] heart with stable angina pectoris 02/20/2015 Overview (01/13/2018): Overview: Coronary artery disease involving [place] coronary artery of [place] heart with other form of angina pectoris CVA, old, hemiparesis ([facility]) 02/21/20 15 Overview (01/13/2018): Overview: CVA, old, hemiparesis Dyslipidemia associated with type 2 diabetes mellitus ([facility]) 02/20/2015 Overview (01/13/2018): Overview: DM (diabetes mellitus) Overview: DM type 2 with diabetic dyslipidemia Mixed diabetic hyperlipidemi a associated with type 2 diabetes mellitus ([facility]) 02/20/2015 Overview (05/17/2021): DM type 2 with [...] Overview: HTN (hypertension), benign Cerebrovascular accident (CVA) ([facility]) 08/23/2013 Hyperlipidemia 08/23/2013 Resolved Problems Problem Noted Date Diagnosed Date Resolved Date Left nephrolithiasis 10/07/2017 018 Encounter for screening for lung cancer 04/09/2017 06/28/2018 BMI 45.0-49.9, adult ([facility]) 10/03/2016 05/15/2022 Morbid obesity ([facility]) 08/13/2016 05/15/2022 Encounter for preventive health examination 08/23/2013 06/28/2018 Encounters Date Type Department Care Team Description 04/11/2024 Telephone [facility] Family & Internal Medicine [address] [phone] Sandi Alfaro APNP Results 03/31/2024 8:40 AM PRINT SHOP ASSISTANT Office Visit [facility] Family & Internal [address] [phone] Sandi Alfaro APNP ER F/U 03/31/2024 Travel 03/29/2024 Scan HEALTH INFO SRVCS Scanned, Doc Med Group Image (SCAN) 03/28/2024 Scan MG HEALTH INFO SRVCS Scanned, Doc Med Group 03/23/2024 Scan MG HEALTH INFO SRVCS Scanned, Doc [facility] Lab (SCAN) 03/23/2024 Scan MG HEALTH INFO SRVCS Scanned, Doc [facility] Lab (SCAN) 03/22/[address] [address] Sandi Alfaro, APNP Medication Request; Advice 03/18/2024 Scan MG HEALTH INFO SRVCS Scanned, Doc Med Group Lab (SCAN) 03/18/2024 Scan MG HEALTH INFO SRVCS Scanned, Doc [facility] Group Lab (SCAN); CT (SCAN); Image (SCAN) 02/26/[address] [phone] Sandi Alfaro, APNP Medication Request 02/22/2024 Scan MG HEALTH INFO SRVCS Scanned, Doc Med Group 02/10/[address] [phone] Sandi Alfaro H, APNP Lab Results 02/05/2024 9:20 AM PRINT SHOP ASSISTANT Office Visit [address] [phone] Sandi Alfaro, APNP Mass (Follow-up on left arm mass) 02/05/2024 Travel 01/29/2024 Scan MG HEALTH INFO SRVCS Scanned, Doc [facility] Group Image (SCAN); CT (SCAN) 01/29/[address] [address] Sandi Alfaro, APNP Results 01/28/2024 Scan [facility] HEALTH INFO SRVCS Scanned, Doc Med Group 01/22/2024 Scan [facility] HEALTH INFO SRVCS Scanned, Doc [facility] Group Ultrasound (SCAN) 01/21/2024 Scan MG HEALTH INFO SRVCS Scanned, Doc Med Group 01/19/2024 10:00 AM PRINT SHOP ASSISTANT Office Visit [facility] Internal Medicine [address] [phone] Sandi Alfaro, CRIS Mass (Left arm) 01/19/2024 Scan MG HEALTH INFO SRVCS Scanned, Doc Med Group 01/19/2024 Travel 01/18/2024 Scan MG HEALTH INFO SRVCS Scanned, Doc Med Group from Last 3 Months Immunizations Name Administration [...] alcohol) very rarely 6 beers/year [facility] Utilities Answer Date Recorded In the past 12 months has e orderTopia, gas, oil, or water [employer] threatened to shut off services in your [...] week 05/12/2023 How often [facility] you attend [facility] services? Never 05/12/2023 Do you belong to any clubs o r organizations such as restorationism groups, unions, fraternal or athletic groups, or [...] Date Recorded Patient Health Questionnaire-2 Score 0 03/31/2024 [facility] [...] place to sleep or slept in a custodial (including now)? No 05/12/2023 Sex and Gender Information Value Date Recorded Sex Assigned at Male 03/31/2024 8:58 AM PRINT SHOP ASSISTANT Legal Sex Male 8:01 PM CDT Gender Identity Not on file Sexual Orientation Not on file Last Filed Vital Signs Vital Sign Reading Time Taken Comments Blood Pressure 128/72 03/31/2024 8:56 AM PRINT SHOP ASSISTANT Pulse 81 03/31/2024 8:56 AM PRINT SHOP ASSISTANT Temperature 36.3 C (97.4 F) 03/31/2024 8:56 AM PRINT SHOP ASSISTANT Respiratory Rate 18 03/31/2024 8:56 AM PRINT SHOP ASSISTANT Oxygen Saturation 98% 03/31/2024 8:56 AM PRINT SHOP ASSISTANT Inhaled Oxygen Concentration - - Weight 139 kg (306 lb 6.4 oz) 03/31/2024 8:56 AM PRINT SHOP ASSISTANT Height 182.9 cm (6') 03/31/2024 8:56 AM PRINT SHOP ASSISTANT Body Mass Index 41.56 03/31/2024 8:56 AM PRINT SHOP ASSISTANT Plan of Treatment Upcoming Encounters Date Type Department Care Team (Late st Contact Info) Description 05/05/2024 8:00 AM PRINT SHOP ASSISTANT Office Visit [facility] Family & Internal Medicine - [address] [phone] Sandi Alfaro APNP [address] [place] [id number] Health Maintenance Due Date Last Done Comments COVID-19 Vaccine ( season) 2023 12/31/2021, 12/31/2020, [...] Td or Tdap) 02/25/2026 02/26/2016, 02/26/2016, 11/22/2014 AAA SCREENING Completed 09/21/2020, 03/03, 04/28/2017 Hepatitis C Completed 06/28/2021, 05/26/2018 Pneumococcal Vaccine: 65+ Years Completed 06/28/2021 Pneumococcal Vaccine: Pediatrics (0 to 5 Years) and At-Risk Patients (6 to 64 Years) Completed 06/28/2021 Influenza Adult Completed 12/16/2023, 12/01, 12/31/2021, Additional history exists PHQ-2 (Physician [place]) Completed 03/31/2024 Meningococcal B Vaccine Aged Out No l onger eligible based on patient's age to complete this topic Meningococcal Vaccine Aged Out No shyam jose eligible based on patient's age to complete this topic RSV Immunizations Under 20 Months Aged Out No longer eligible based on patient's age to complete this topic Procedures Procedure Name Priority Date/Time Associated Diagnosis Comments COLLECTION VENOUS BLOOD VENIPUNCTURE Routine 03/31/2024 9:56 AM PRINT SHOP ASSISTANT Body mass index (BMI) 40.0-44.9, adult ([facility]) Mixed diabetic hyperlipidemia associated with type 2 diabetes mellitus ([facility]) Prostate cancer screening Primary hypertension PROSTATE SPECIFIC ANTIGEN,SCREENING Routine 03/31/2024 9:55 AM PRINT SHOP ASSISTANT Prostate cancer screening CBC W/DIFF AUTOMATED Routine 03/31/2024 9:55 AM PRINT SHOP ASSISTANT Thrombocytopenia ([facility]/HCC) COMPREHENSIVE METABOLIC PANEL Routine 03/31/2024 9:55 AM PRINT SHOP ASSISTANT Body mass index (BMI) 40.0-44.9, adult ([facility] H[facility]/HCC) Mixed diabetic hyperlipidemia associated with type 2 diabetes mellitus ([facility]) Primary hypertension MG/PCCL UDS W CONF Routine 03/31/2024 8: 59 AM PRINT SHOP ASSISTANT Long-term use of high-risk medication IMAGE GENERIC 03/29/2024 OUTSIDE LAB COVID-19 (SCAN ORDER) Routine 03/23/2024 OUTSIDE LAB (SCAN ORDER) 03/23/2024 OUTSIDE LAB (SCAN ORDER) 03/23/2024 OUTSIDE PT/INR (SCAN ORDER) 03/23/2024 OUTSIDE LAB (SCAN ORDER) 03/23/2024 CT GENERIC 03/18/2024 CT GENERIC 03/18/2024 OUTSIDE LAB COVID-19 (SCAN ORDER) Routine 03/18/2024 OUTSIDE PT/INR (SCAN ORDER) 03/18/2024 OUTSIDE LAB (SCAN ORDER) 03/18/2024 OUTSIDE LAB (SCAN ORDER) 03/18/2024 OUTSIDE LAB (SCAN ORDER) 03/18/2024 IMAGE GENERIC 03/18/2024 ALBUMIN URINE RANDOM W/CREATININE Routine 02/05/2024 11:04 AM PRINT SHOP ASSISTANT Mixed diabetic hyperlipidemia associated with type 2 diabetes mellitus (CMS/HCC HHS/HCC) COLLECT.CAPILLARY (FNGR,HEEL,EAR) Routine 02/05/2024 10:00 AM PRINT SHOP ASSISTANT Type 2 diabetes mellitus without complication, without [...] CDT Need for hepatitis C screening test CT CHEST WO CONT LOW DOSE Routine 09/21/2020 10:28 AM CDT Nicotine dependence, cigarettes, with other nicotine-induced disorders COLONOSCOPY GENERIC (SCAN ORDER) Routine 03/28/2015 from Last 3 Months or Most Recently Relevant to Health Maintenance Results * PROSTATE SPECIFIC ANTIGEN,SCREENING (03/31/2024 9:55 AM PRINT SHOP ASSISTANT) PSA 2.27 <4.00 NG/ML 03/31/2024 3:04 PM PRINT SHOP ASSISTANT [facility] Comment: ASSAY PERFORMED BY [employer] IMMUNOASSAY METHODOLOGY USING SIEMENS DIMENSION REAGENT. PATIENT RESULTS DETERMINED BY ASSAYS FROM DIFFERENT MANUFACTURERS AND/OR BY DIFFERENT METHODS MAY NOT BE COMPARABLE. 03/31/2024 9:55 AM PRINT SHOP ASSISTANT us Sandi H Angelina LYN[facility] LABORATORY Final Resul t [facility] [place] [address] [facility] [place] [address], [place] [phone] * (ABNORMAL) COMPREHENSIVE METABOLIC PANEL (03/31/2024 9:55 AM PRINT SHOP ASSISTANT) [facility] SODIUM S/P/B 139 136 - 145 MMOL/L 03/31/2024 3:29 PM PRINT SHOP ASSISTANT [facility] POTASSIUM S/P/B 4.2 3.5 - 5.1 MMOL/L 03/31/2024 3:29 PM PRINT SHOP ASSISTANT [facility] CHLORIDE S/P/B 103 98 - 107 MMOL/L 03/31/2024 3:29 PM [facility] CO2 25.2 21 - 32 MMOL/L 03/31/2024 3:29 PM PRINT SHOP ASSISTANT [facility] GLUCOSE 127(H) 70 - 99 MG/DL 03/31/2024 3:29 PM [facility] BUN 12 7 - 18 MG/DL 03/31/2024 3:29 PM PRINT SHOP ASSISTANT [facility] CREATININE S/P/B 1.11 0.70 - 1.30 MG/DL 03/31/2024 3:29 PM [facility] CALCIUM S/P/B 9.1 8.4 - 10.5 MG/DL 03/31/2024 3:29 PM PRINT SHOP ASSISTANT [facility] BILIRUBIN TOTAL S/P/B 0.6 0.2 - 1.0 MG/DL 03/31/2024 3:29 PM [facility] ALKALINE PHOSPHATASE S/P/B 76 45 - 115 U/L 03/31/2024 3:29 PM [facility] AST 28 15 - 37 U/L 03/31/2024 3:29 PM PRINT SHOP ASSISTANT [facility] ALT 46 16 - 63 U/L 03/31/2024 3:29 PM PRINT SHOP ASSISTANT [facility] [place], [place] TOTAL PROTEIN S/P/B 6.9 6.4 - 8.2 G/DL 03/31/2024 3:29 PM PRINT SHOP ASSISTANT [facility] [place] ALBUMIN S/P/B 3.8 3.4 - 5.0 G/DL 03/31/2024 3:29 PM PRINT SHOP ASSISTANT [facility] [place] ANION GAP 10.8 5 - 15 MMOL/L 03/31/2024 3:29 PM PRINT SHOP ASSISTANT [facility] [place] Comment:REFERENCE RANGE NOT ESTABLISHED OSMOLALITY (CALC) 289 MOSM/KG 025 3:29 PM PRINT SHOP ASSISTANT [facility] [place] Comment:REFERENCE RANGE NOT ESTABLISHED GFR ESTIMATE 74(L) >90 ML/MIN/1. 73 M2 03/31/2024 3:29 PM PRINT SHOP ASSISTANT [facility] [place] GFR NOTES GFR REFERENCE S: 03/31/2024 3:29 PM PRINT SHOP ASSISTANT [facility] [place] Comment: THE ESTIMATED GFR IS CALCULATED USING THE 2020 CKD-EPI EQUATION. THE FOLLOWING CATEGORIES FOR GRADING RENAL FUNCTION ARE RECOMMENDED BY THE INTERNATIONAL SOCIETY OF NEPHROLOGY (KDIGO 2012 CLINICAL PRACTICE GUIDELINE). G1,NORMAL OR HIGH: >89 ml/min/1.73 m2 G2,MILDLY DECREASED: 60-89 ml/min/1.73 m2 G3A,MILDLY TO MODERATELY DECREASED: 45-59 ml/min/1.73 m2 G3B,MODERATELY TO SEVERELY DECREASED: 30-44 ml/min/1.73 m2 G4,SEVERELY DECREASED: 15-29 ml/min/1.73 m2 G5,KIDNEY FAILURE: <15 ml/min/1.73 m2 03/31/2024 9:55 AM PRINT SHOP ASSISTANT us Sandi LYNCH LABORATORY Final Resul t [facility] [address] [place] [address], * (ABNORMAL) CBC W/DIFF AUTOMATED (03/31/2024 9:55 AM PRINT SHOP ASSISTANT) [facility] WBC 7.37 4.00 - 10.80 x10'3/uL 03/31/2024 3:14 PM [facility] RBC 4.34(L) 4.50 - 6.10 x10'6/uL 03/31/2024 3:14 PM [facility] HGB 13.2 13.0 - 18.0 G/DL 03/31/2024 3:14 PM [facility] HCT 38.9 37.0 - 52.0 % 03/31/2024 3:14 PM [facility] MCV 89.6 78.0 - 100.0 FL 03/31/2024 3:14 PM [facility] MCH 30.4 27.0 - 31.0 PG 03/31/2024 3:14 PM [facility] MCHC 33.9 33.0 - 36.0 G/DL 03/31/2024 3:14 PM [facility] RDW 14.0 11.5 - 14.5 % 03/31/2024 3:14 PM [facility] PLT 140(L) 150 - 350 x10'3/uL 03/31/2024 3:14 PM [facility] MPV 12.2(H) 7.4 - 10.4 FL 03/31/2024 3:14 PM [facility] DIFFERENTIAL TYPE AUTOMATED DIFFERENTIAL 03/31/2024 3:15 PM [facility] NEUTROPHILS % 73.8 % 03/31/2024 3:15 PM [facility] LYMPHOCYTES % 14.5 % 03/31/2024 3:15 PM [facility] MONOCYTES % 9.0 % 03/31/2024 3:15 PM [facility] EOSINOPHILS % 2.0 % 03/31/2024 3:15 PM PRINT SHOP ASSISTANT [facility] BASOPHILS % 0.3 % 03/31/2024 3:15 PM PRINT SHOP ASSISTANT [facility] IMMATURE GRANS % 0.4 % 03/31/2024 3:15 PM PRINT SHOP ASSISTANT [facility] ABS. NEUTROPHILS 5.44 1.60 - 8.30 x10'3/uL 03/31/2024 3:15 PM PRINT SHOP ASSISTANT [facility] ABS. LYMPHOCYTES 1.07 0.80 - 4.70 x10'3/uL 03/31/2024 3:15 PM PRINT SHOP ASSISTANT [facility] ABS. MONOCYTES 0.66 0.00 - 1.50 x10'3/uL 03/31/2024 3:15 PM PRINT SHOP ASSISTANT [facility] ABS. EOSINOPHILS 0.15 0.00 - 0.40 x10'3/uL 03/31/2024 3:15 PM PRINT SHOP ASSISTANT [facility] ABS. BASOPHILS 0.02 0.00 - 0.20 x10'3/uL 03/31/2024 3:15 PM PRINT SHOP ASSISTANT [facility] ABS. IMMATURE GRANULOCYTES 0.03 0.00 - 0.03 x10'3/uL 03/31/2024 3:15 PM PRINT SHOP ASSISTANT [facility] 03/31/2024 9:55 AM PRINT SHOP ASSISTANT Sandi LYNCH LABORATORY Final Resul t [facility] [address] [place] [address], * (ABNORMAL) MG/PCCL UDS W CONF (03/31/2024 8:59 AM PRINT SHOP ASSISTANT) RESULT SUMMARY [facility] Comment: Prescribed Prescribed Not Prescribed Consistent Inconsistent Inconsistent Hydrocodone Tramadol PRESCRIBED DRUG 1 (U) Hydrocodone [facility] PRESCRIBED DRUG 2 (U) Tramadol [facility] FENTANYL SCREEN (U) NEGATIVE <0.5 ng/mL [facility] REA MORPHINE (U) NEGATIVE <10 ng/mL [facility] DESMETHYLTRAMADOL (U) NEGATIVE <100 ng/mL [facility] DESMETHYLTRAMADOL MEDMATCH (U) INCONSISTENT(A ) [facility] [employer] RONA TRAMADOL (U) NEGATIVE <100 ng/mL [facility] [employer] RONA TRAMADOL (MEDMATCH) INCONSISTENT(A ) [facility] WOOD RONA TRAMADOL COMMENTS [facility] Comment:See LDT Notes AMPHETAMINES PM NEGATIVE <500 ng/mL [facility] BARBITURATES PM (U) NEGATIVE <300 ng/mL [facility] BENZODIAZEPINES PM (U) NEGATIVE <100 ng/mL [facility] COCAINE METABOLITE PM (U) NEGATIVE <150 ng/mL [facility] [employer] RONA MARIJUANA METABOLITE PM (U) NEGATIVE <20 ng/mL [facility] METHADONE PM (U) NEGATIVE <100 ng/mL [facility] [employer] RONA OPIATES PM (U) NEGATIVE <100 ng/mL [facility] [employer] RONA OPIATES PM MEDMATCH (U) INCONSISTENT(A ) [facility] NORHYDROCODONE PM MM (U) INCONSISTENT(A ) [facility] OXYCODONE PM (U) NEGATIVE <100 ng/mL [facility] CREATININE RANDOM (U) 78.0 > or = 20.0 mg/dL [facility] [employer] RONA pH PM (U) 5.4 4.5 - 9.0 [facility] OXIDANT NEGATIVE <200 mcg/mL [facility] [employer] ORNA NOTE [facility] Comment: This drug testing is for medical treatment only. Analysis was performed as non-forensic testing and these results should be used only by healthcare providers to render diagnosis or treatment, or to monitor progress of medical conditions. LDT Notes: Confirmation tests were developed and their analytical performance characteristics have been determined by [facility]. It has not been cleared or approved by the FDA. This assay has been validated pursuant to the CLIA regulations and is used for clinical purposes. medMATCH(R) enables providers to identify if drug use is consistent or inconsistent with a corresponding prescribed medication(s) list. Healthcare Providers needing Interpretation assistance, please contact us at [phone] ( ) M-F, 8am to 10pm EST URINE SPECIMEN / Unknown 03/31/2024 8:59 AM PRINT SHOP ASSISTANT 03/31/2024 11:43 PM PRINT SHOP ASSISTANT Narrative Resulting Agency Comment Performing Organization Information: Site ID: Name: [facility] Address: [address] [place] [address] Director: Cl[place] Ca Site ID: [id number] Name: [facility] Address: [address] [place] [address] Director: Velvet Juarez MD Sandi LYNCH URINE ORDERABLES Final Resu lt Performing Organization Address [facility] de Phone Number [facility] [address] [place] [address], [facility] [address] [place] [address] * IMAGE GENERIC (03/29/2024) Only the most recent of4 resultswithin the time period is included. Anatomical Region Laterality Modality Other 03/29/2024 [facility] Scanned SCANNING Final Resu lt * OUTSIDE LAB COVID-19 (03/23/2024) Only the most recent of2 resultswithin the time period is included. CORONAVIRUS SARS COV 2 PCR (RESP) NOT DETECTED NOT DETECTED [facility] 03/23/2024 [facility] Scanned SCANNING Final Resu lt Performing Organization Address City/[facility]/ZIP Co de Phone Number [facility] * OUTSIDE PT/INR (SCAN ORDER) (03/23/2024) Only the most recent of2 resultswithin the time period is included. 03/23/2024 [facility] Scanned SCANNING Final Resu lt * OUTSIDE LAB (SCAN ORDER) (03/23/2024) Only the most recent of6 resultswithin the time period is included. 03/23/2024 [facility] Scanned SCANNING Final Resu lt * CT GENERIC (03/18/2024) Only the most recent of3 resultswithin the time period is included. Anatomical Region Laterality Modality Other 03/18/2024 Result [facility] Scanned SCANNING Final Resu lt * (ABNORMAL) ALBUMIN/CREATININE RATIO, RANDOM URINE (02/05/2024 11:04 AM PRINT SHOP ASSISTANT) MICROALBUMIN (U) 635.8(H) <20 MG/L 02/05/20 24 3:47 PM PRINT SHOP ASSISTANT [facility] CREATININE RANDOM (U) 87.3 MG/DL 02/05/2024 3:47 PM PRINT SHOP ASSISTANT [facility] ALBUMIN/CREAT RATIO 728.3(H) <30 MG/G 02/05/2024 3:47 PM PRINT SHOP ASSISTANT [facility] URINE SPECIMEN / Unknown 02/05/2024 11:04 AM PRINT SHOP ASSISTANT Result [facility] Sandi LYNCH URINE ORDERABLES Final Resu lt [facility] [address] [place] [address], * HEMOGLOBIN, GLYCOSYLATED (02/05/2024) HGB A1C 6.5 % [facility] [place] 02/05/2024 us Sandi LYNCH LABORATORY Final Resul t -[facility] [address] [place] [address], [place] * ULTRASOUND GENERIC (SCAN ORDER) (01/22/2024) Anatomical Region Laterality Modality Other 01/22/2024 us [facility] Scanned SCANNING Final Resu lt * (ABNORMAL) LIPID PANEL (05/13/2023 6:00 AM CDT) CHOLESTEROL 87 <200 MG/DL 05/13/2023 7:18 AM CDT [facility] TRIGLYCERIDES 213(H) <150 MG/DL 05/13/2023 7:18 AM CDT [facility] HDL 24(L) >40.0 MG/DL 05/13/2023 7:18 AM CDT [facility] LDL (CALCULATED) 20 <100 MG/DL 05/13/2023 7:18 AM CDT [facility] NON HDL CHOLESTEROL 63 <130 MG/DL 05/13/2023 7:18 AM CDT [facility] CHOL/HDL RATIO 3.6 0.0 - 4.5 05/13/2023 7:18 AM CDT [facility] VLDL CALCULATION 43 5 - 55 MG/DL 05/13/2023 7:18 AM CDT [facility] LIPID INTERPRETATION 05/13/2023 7:18 AM CDT [facility] Comment: [facility] CONCENSUS REPORT RECOMMENDATIONS: ADULT CHILD LOW RISK: CHOLESTEROL <200 <170 TRIGLYCERIDE <150 --- HDL >=60 --- LDL <100 <110 BORDERLINE: CHOLESTEROL 200-239 170-199 TRIGLYCERIDE 150-199 --- HDL 40-59 --- LDL 100-159 110-129 HIGH RISK: CHOLESTEROL >=240 >=200 TRIGLYCERIDE >=200 --- HDL <40 --- LDL >=160 >=130 05/13/2023 6:00 AM CDT Ayanna Bellamy MD LABORATORY Final Re sult Performing Organization Address City/[facility] Co de Phone Number [facility] [address] [place] [address], * DIABETIC RETINOPATHY EXAM (NEGATIVE) (04/20/2023) [facility] Scanned SCANNING Final Resu lt Performing Organization Address [facility] de Phone Number [facility] * HEPATITIS C ANTIBODY W/RFX TO [...] a test for HCV RNA (test code 13433) is suggested. For additional information please refer to http://education.[employer]/faq/SLC25d0 (This link is being provided for informational/ educational purposes only.) 06/28/2021 11:2 2 AM CDT 06/29/2021 10:18 AM CDT Sandi LYNCH LABORATORY Final Resul t Performing Organization Address City/[facility] Co de Phone Number [facility] [address] [place] [address] * CT CHEST WO CONT LOW DOSE (09/21/2020 10:28 AM CDT) Anatomical Region Laterality Modality Chest Computed Tomogra phy 09/21/2020 6:06 PM CDT Impressions 09/21/2020 6:16 PM CDT =====Impression:===== LUNG-RADS Category/Recommendation: 2 /Continue annual screening with LDCT in 12 months. Suggest follow up exam on or around 2021-09-21 LUNG-RADS category S: Negative, no new/unknown potentially significant incidental findings requiring urgent additional evaluation. Other Incidental Findings: As above. Thank you for choosing the [facility]'s Lung Screening Program. Referred By: NICK HENDERSON Interpreted By: Kvng Toscano MD, 09/21/2020 6:06 PM Narrative 09/21/2020 6:16 PM CDT Examination: Lung Screening Low-Dose Ct Thorax Without Contrast Exam date/time: 09/21/2020 10:13 AM Clinical history: Asymptomatic patient meeting NCCN high-risk criteria for lung screening. * 60 years * 30 pack years or greater * Current smoker of have quit smoking within the last 15 years. Comparison: 03/13/2020, 04/28/2017 Technique: Noncontrast, helical, low-dose CT (LDCT) chest per standard departmental protocol. A dose lowering technique was used for this procedure, which may include, but is not limited to, dose reduction technique, automated exposure control, the use of iterative reconstruction, and ALARA (As Low As Reasonably Achievable) / Image Gently techniques. FINDINGS: Lung Screening Specific (LUNG-RADS): Stable nodules Nodule 1: 4.9 mm, Solid nodule, Right Lower Lobe Image slice# 74 Nodule 2: 4.6 mm, Solid nodule, Right Lower Lobe Image slice# 96 Nodule 3: 2.6 mm, Solid nodule, Right Lower Lobe Image slice# 74 Potentially Significant Incidentals (LUNG-RADS category S): None. Additional Findings: Chronic focal opacity in the lingula compatible chronic scarring or atelectasis. Minimal atelectasis elsewhere. Chronic pleural thickening in the left lung base posteriorly. Implanted shelter monitor device within the left chest subcutaneous tissues. Moderate coronary artery calcifications. Possible prior stenting. Detail is obscured due to motion artifact. Mild aortic atherosclerosis. Additional scattered vascular calcifications elsewhere. No mediastinal or hilar lymphadenopathy. Hepatomegaly and diffuse hepatic steatosis. Chronic healed rib fracture. Diffuse degenerative changes. Diffuse idiopathic skeletal hyperostosis in the thoracic spine. Minimal scoliosis. Procedure Note Kvng Toscano MD - 09/21/2020 Examination: Lung Screening Low-Dose Ct Thorax Without Contrast Exam date/time: 09/21/2020 10:13 AM Clinical history: Asymptomatic patient meeting NCCN high-risk criteria forlung screening. * 60 years * 30 pack years or greater * Current smoker of have quit smoking within the last 15 years. Comparison: 03/13/2020, 04/28/2017 Technique: Noncontrast, helical, low-dose CT (LDCT) chest per standarddepartmental protocol. A dose lowering technique was used for thisprocedure, which may include, but is not limited to, dose reductiontechnique, automated exposure control, the use of iterativereconstruction, and ALARA (As Low As Reasonably Achievable) / Image Gentlytechniques. FINDINGS: Lung Screening Specific (LUNG-RADS): Stable nodules Nodule 1: 4.9 mm, Solid nodule, Right Lower Lobe Image slice# 74 Nodule 2: 4.6 mm, Solid nodule, Right Lower Lobe Image slice# 96 Nodule 3: 2.6 mm, Solid nodule, Right Lower Lobe Image slice# 74 Potentially Significant Incidentals (LUNG-RADS category S): None. Additional Findings: Chronic focal opacity in the lingula compatiblechronic scarring or atelectasis. Minimal atelectasis elsewhere. Chronicpleural thickening in the left lung base posteriorly. Implanted cardiacmonitor device within the left chest subcutaneous tissues. Moderatecoronary artery calcifications. Possible prior stenting. Detail isobscured due to motion artifact. Mild aortic atherosclerosis. Additionalscattered vascular calcifications elsewhere. No mediastinal or hilarlymphadenopathy. Hepatomegaly and diffuse hepatic steatosis. Chronichealed rib fracture. Diffuse degenerative changes. Diffuse idiopathicskeletal hyperostosis in the thoracic spine. Minimal scoliosis. =====Impression:===== LUNG-RADS Category/Recommendation: 2 /Continue annual screening with LDCTin 12 months. Suggest follow up exam on or around 2021-09-21 LUNG-RADS category S: Negative, no new/unknown potentially significantincidental findings requiring urgent additional evaluation. Other Incidental Findings: As above. Thank you for choosing the [facility]. Referred By: NICK HENDERSON Interpreted By: Kvng Toscano MD, 09/21/2020 6:06 PM us Nick Henderson MD CT Final Result * COLONOSCOPY (03/28/2015) 03/28/2015 us Documents Scanned [...] 11:13 PM 05/01/2017 6:00 PM Care Teams Speech Lang Path Therapist Relationship Specialty Start Date End Date Sandi Alfaro APNP Family & Internal Medicine [address] [address] PCP - General [employer] 04/28/17 Cheryl Huston, bowl attendant (Ambulatory) REGISTERED NURSE 03/23/19
[2024-04-14 14:04] LABS: Add Urine Microscopic? YES; Appearance Urine Clear (Clear); Bacteria Urine None Seen /hpf; Bilirubin Urine Negative (Negative); Blood Urine Negative (Negative); Color Urine Yellow (Yellow); Glucose Urine UA 3+ mg/dL (Negative); Ketones Urine Negative (Negative); Leukocyte Esterase Ur Negative LEU/UL (Negative); Nitrate Urine Negative (Negative); Non Pathogenic Casts 0-2; Protein Urine 2+ mg/dL (Negative); Specific Grav Ur 1.028 (1.001-1.035); Squamous Epithelial Cell Urine None Seen /hpf (Few); Urobilinogen Urine 0.2 mg/dL (<2.0); WBC Urine 0-5 /hpf (0-3); pH Urine 5.5 (5.0-9.0)
--- NOTE | 2024-04-14 14:22 | ED.GENADULT ---
HPI - General Adult General Chief complaint: Urogenital-Male <Della Guallpa, RESEARCH CHEMIST - Last Filed: 04/14/24 14:27> Stated complaint: suspected kidney stone, pain w/urination <Della Guallpa, RESEARCH CHEMIST - Last Filed: 04/14/24 14:27> Time Seen by Provider: 04/14/24 14:22 <Della Loera June, RESEARCH CHEMIST - Last Filed: 04/14/24 14:27> Focused HPI: Vini Zambrano is a 64 y/o male who presents with reports of having known kidney stones / and he states the past two days he feels that he is not emptying his bladder and has urinary frequency and started to have left lower flank pain today - he states that he usually is unable to pass the stones and typically needs a procedure to get them out. He rates pain at a 7/10 He is on Xarelto He has not taking flomax today GENERAL: Well-appearing, well-nourished, and in no acute distress. HEAD: Normocephalic, atraumatic. CHEST: Clear to auscultation. ?No respiratory distress. HEART: Regular rate and rhythm.? NEURO: ?Alert and oriented x3. Patient screened in triage and initial orders placed.? ?Additional care and disposition to be based upon?diagnostic testing and treatment. <Della Guallpa, RESEARCH CHEMIST - Last Filed: 04/14/24 14:27> History of Present Illness HPI narrative: Agree with HPI. <Caleb Azul MD - Last Filed: 04/14/24 16:09> Related Data Home medications: Home Medications ?Medication ?Instructions ?Recorded ?Confirmed ?Last Taken ?Type amlodipine 10 mg tablet 10 mg PO DAILY 01/24/19 02/25/24 12/24/23 History bupropion HCl 150 mg tablet,12 hr 150 mg PO BID 01/24/19 02/25/24 12/24/23 History sustained-release (Wellbutrin SR) doxazosin 2 mg tablet (Cardura) 2 mg PO HS 01/24/19 02/25/24 12/24/23 History dulaglutide 1.5 mg/0.5 mL 1.5 mg subcut WEEKLY 01/24/19 02/25/24 12/18/23 History subcutaneous pen injector (Trulicity) metformin 1,000 mg tablet 1,000 mg PO BID 01/24/19 02/25/24 12/24/23 History rivaroxaban 2.5 mg tablet (Xarelto) 2.5 mg PO BID 01/24/19 02/25/24 12/24/23 History omeprazole 40 mg capsule,delayed 40 mg PO DAILY 04/13/19 02/25/24 12/24/23 History release atorvastatin 40 mg tablet 80 mg PO HS 05/16/19 02/25/24 12/23/23 History albuterol sulfate 90 mcg/actuation 2 puff inhalation Q4-6H PRN 01/09/20 02/25/24 12/24/23 History aerosol inhaler (Ventolin HFA) Shortness Of Breath isosorbide mononitrate 60 mg 120 mg PO DAILY 01/09/20 02/25/24 12/24/23 History tablet,extended release 24 hr loratadine 10 mg tablet (Claritin) 10 mg PO DAILY 03/15/20 02/25/24 12/24/23 History alprazolam 0.25 mg tablet 0.25 mg PO HS 08/21/21 02/25/24 12/24/23 History aspirin 81 mg chewable tablet 81 mg PO DAILY 09/29/21 02/25/24 12/24/23 History (Children's Aspirin) tamsulosin 0.4 mg capsule 0.4 mg PO DAILY 12/25/23 02/25/24 12/24/23 History empagliflozin 10 mg tablet mg 02/25/24 02/25/24 Unknown History (Jardiance) <Della Guallpa, RESEARCH CHEMIST - Last Filed: 04/14/24 14:27> Allergies/adverse reactions: Allergies Allergy/AdvReac Type Severity Reaction Status Date / Time No Known Allergies Allergy Unknown Verified 04/14/24 12:26 <Della Guallpa APRN - Last Filed: 04/14/24 14:27> Review of Systems Review of Systems: All systems reviewed & are unremarkable except as noted in HPI and below <Caleb Azul MD - Last Filed: 04/14/24 16:09> Constitutional: Constitutional: Reports no additional constitutional complaints <Caleb Azul MD - Last Filed: 04/14/24 16:09> Gastrointestinal: Gastrointestinal: Reports no additional gastrointestinal complaints <Caleb Azul MD - Last Filed: 04/14/24 16:09> Genitourinary: Genitourinary: Reports no additional male genitourinary complaints <Caleb Azul MD - Last Filed: 04/14/24 16:09> Musculoskeletal: Musculoskeletal: Reports no additional musculoskeletal complaints <Caleb Azul MD - Last Filed: 04/14/24 16:09> [facility] Past Medical History Medical History: Medical History NSTEMI (non-ST elevated myocardial infarction) Coronary artery disease Stent to the distal circumflex and Left anterior descending in 2014. Left anterior descending stent in 04/2015. COVID Transient ischemic attack Diabetic peripheral neuropathy Peripheral vascular disease Deep venous thrombosis Gastric ulcer Obstructive sleep apnea on CPAP Hyperlipidemia Hypertension Type 2 diabetes mellitus Gastroesophageal reflux disease Chronic obstructive pulmonary disease Cerebrovascular accident Mild left-sided weakness. Congestive heart failure BMI greater than 40 Chronic anticoagulation Hydronephrosis Angina at rest Psoriasis Depression Fracture of fifth toe, right, closed Kidney stones Pneumonia Myocardial infarction Seasonal allergies <Della Loera June,N - Last Filed: 04/14/24 14:27> Surgical History Surgical History: Surgical History History of tonsillectomy History of cholecystectomy History of lithotripsy History of heart artery stent X2. History of rectal polypectomy History of cardiac catheterization 2 stents <Della Loera June,N - Last Filed: 04/14/24 14:27> Family History Family History: Family History Mother Diabetes mellitus Arthritis Kidney stones Coronary artery disease Father Acute myocardial infarction Heart disease Kidney stones Hypertension Coronary artery disease Sibling Coronary artery disease Heart disease Hx of CABG <Della Loera June,N - Last Filed: 04/14/24 14:27> Social History Social History: Social History Social History: Surrogate decision maker: Rena Dodd, friend. Code status: Full code. Smoking packs per day: 0.5 Smoking cigarettes per day: 10.0 Years smoked: 44 Smoking pack-years: 22.00 Smoking status: Current every day smoker Tobacco type: cigarettes Second hand tobacco smoke exposure: Yes Alcohol intake: never Substance use: never Substance use type: does not use Do You Feel Safe in your Home?: Yes Lack of Transportation: No Lack of Food: Never True Current Housing: I Have Housing Concerned About Future Housing: No Difficulty Paying Gas/Electric Bills: No Difficulty Paying for Meds: No Currently Unemployed: No Education: High School Diploma/GED Difficulty w/ Childcare or Family Care: No Living arrangements: with roommate(s) Additional living arrangements comments: The patient lives in [place] with a roommate. He has no children. Occupation/Education: other Additional occupation/education comments: Disabled. Spiritual care concerns: No <Della Guallpa APRN - Last Filed: 04/14/24 14:27> Exam Narrative: GENERAL: Well-appearing, well-nourished, and in no acute distress. HEAD: Normocephalic, atraumatic. ENT: Mucous membranes moist. CHEST: Clear to auscultation. No respiratory distress. HEART: Regular rate and rhythm. Normal peripheral pulses. ABDOMEN: Soft, nontender, nondistended. Back: No midline tenderness the T/L-spine. Left paraspinal muscle tenderness near L1. EXTREMITIES: Normal range of motion. No edema. NEURO: Alert and oriented x3. PSYCH: Normal mood and affect. <aCleb Azul MD - Last Filed: 04/14/24 16:09> Course Course Emergency Course: Patient received Flomax. Will give 1 dose Toradol. No kidney stone. Received 1 L IV fluid. Appropriate for discharge home. <Caleb Azul MD - Last Filed: 04/14/24 16:09> Vital Signs Vital signs: Vital Signs Pulse Rate 87 04/14/24 15:34 Respiratory Rate 16 04/14/24 15:34 Blood Pressure 146/85 H 04/14/24 15:34 Pulse Oximetry 98 04/14/24 15:34 Pulse Rate 87 04/14/24 15:34 Respiratory Rate 16 04/14/24 15:34 Blood Pressure 146/85 H 04/14/24 15:34 Pulse Oximetry 98 04/14/24 15:34 <Della J. May, RESEARCH CHEMIST - Last Filed: 04/14/24 14:27> Vital Signs Pulse Rate 87 04/14/24 15:34 Respiratory Rate 16 04/14/24 15:34 Blood Pressure 146/85 H 04/14/24 15:34 Pulse Oximetry 98 04/14/24 15:34 Pulse Rate 87 04/14/24 15:34 Respiratory Rate 16 04/14/24 15:34 Blood Pressure 146/85 H 04/14/24 15:34 Pulse Oximetry 98 04/14/24 15:34 <Caleb Azul MD - Last Filed: 04/14/24 16:09> Medical Decision Making Vital Signs Vital Signs: Vital Signs Pulse Rate 87 04/14/24 15:34 Respiratory Rate 16 04/14/24 15:34 Blood Pressure 146/85 H 04/14/24 15:34 Pulse Oximetry 98 04/14/24 15:34 Pulse Rate 87 04/14/24 15:34 Respiratory Rate 16 04/14/24 15:34 Blood Pressure 146/85 H 04/14/24 15:34 Pulse Oximetry 98 04/14/24 15:34 <Della Guallpa, RESEARCH CHEMIST - Last Filed: 04/14/24 14:27> Vital Signs Pulse Rate 87 04/14/24 15:34 Respiratory Rate 16 04/14/24 15:34 Blood Pressure 146/85 H 04/14/24 15:34 Pulse Oximetry 98 04/14/24 15:34 Pulse Rate 87 04/14/24 15:34 Respiratory Rate 16 04/14/24 15:34 Blood Pressure 146/85 H 04/14/24 15:34 Pulse Oximetry 98 04/14/24 15:34 <Caleb Azul MD - Last Filed: 04/14/24 16:09> Lab Data Result diagrams: 04/14/24 15:04 04/14/24 15:04 <Della Guallpa, RESEARCH CHEMIST - Last Filed: 04/14/24 14:27> Labs: Lab Results 04/14/24 04/14/24 Range/Units 13:46 15:04 WBC 6.5 (4.5-10.0) K/mm3 RBC 4.62 (4.6-6.20) M/mm3 Hgb 14.3 (14.0-18.0) g/dL Hct 41.1 L (42.0-52.0) % MCV 89.0 (80-100) fl MCH 31.0 (26-34) pg MCHC 34.8 (32-36) g/dl RDW 14.6 H (11.5-14.5) % Plt Count 151 (150-375) k/mm3 MPV 11.1 H (7.4-10.4) fl Immature Gran % (Auto) 0.5 (0-0.5) % Neut % (Auto) 71.7 (45.5-73.1) % Lymph % (Auto) 17.1 L (18.3-44.2) % Emery % (Auto) 8.4 (2.6-8.5) % Eos % (Auto) 2.0 (0-4.4) % Baso % (Auto) 0.3 (0.2-1.2) % Lymph # (Auto) 1.11 (0.9-3.2) K/mm3 Emery # (Auto) 0.6 (0.1-0.6) K/mm3 Eos # (Auto) 0.1 (0-0.3) K/mm3 Baso # (Auto) 0.0 (0.0-0.1) K/mm3 Abs Immat Gran (auto) 0.03 (0.00-0.031) K/mm3 Absolute Neuts (auto) 4.7 (1.3-6.7) K/mm3 Absolute Nucleated RBC 0.000 (0.0-0.012) K/mm3 Nucleated RBC % 0.0 (0.0-0.2) % Sodium 136 L (137-145) mmol/L Potassium 4.5 (3.4-5.0) mmol/L Chloride 102 (98-107) mmol/L Carbon Dioxide 21 L (22-30) mmol/L Anion Gap 13 H (4-12) mmol/L BUN 18 (9-20) mg/dL Creatinine 1.11 (0.7-1.3) mg/dL Estim Creat Clear Calc Not Reportable Estimated GFR > 60 (59 - ) Glucose 254 H (65-110) mg/dL Calcium 9.5 (8.4-10.2) mg/dL Total Bilirubin 0.7 (0.2-1.3) mg/dL AST 31 (17-59) U/L ALT 44 (6-50) U/L Alkaline Phosphatase 63 (38-126) U/L Total Protein 8.0 (6.3-8.2) g/dL Albumin 4.6 (3.5-5.1) g/dL Urine Color Yellow (Yellow) Urine Appearance Clear (Clear) Urine pH 5.5 (5.0-9.0) Ur Specific [place] 1.028 (1.001-1.035) Urine Protein 2+ H (Negative) mg/dL Urine Glucose (UA) 3+ H (Negative) mg/dL Urine Ketones Negative (Negative) mg/dL Ur Blood (Man) Negative (Negative) Urine Nitrate Negative (Negative) Urine Bilirubin Negative (Negative) Urine Urobilinogen 0.2 (<2.0) mg/dL Leukocyte Esterase Rfl Negative (Negative) JAVIER/UL Urine RBC 3-5 H (0-2) /hpf Urine WBC 0-5 (0-3) /hpf Ur Squamous Epith Cells None seen (Few) /hpf Urine Bacteria None seen /hpf Urine Casts 0-2 <Della Guallpa, RESEARCH CHEMIST - Last Filed: 04/14/24 14:27> Lab Results 04/14/24 04/14/24 Range/Units 13:46 15:04 WBC 6.5 (4.5-10.0) K/mm3 RBC 4.62 (4.6-6.20) M/mm3 Hgb 14.3 (14.0-18.0) g/dL Hct 41.1 L (42.0-52.0) % MCV 89.0 (80-100) fl MCH 31.0 (26-34) pg MCHC 34.8 (32-36) g/dl RDW 14.6 H (11.5-14.5) % Plt Count 151 (150-375) k/mm3 MPV 11.1 H (7.4-10.4) fl Immature Gran % (Auto) 0.5 (0-0.5) % Neut % (Auto) 71.7 (45.5-73.1) % Lymph % (Auto) 17.1 L (18.3-44.2) % Emery % (Auto) 8.4 (2.6-8.5) % Eos % (Auto) 2.0 (0-4.4) % Baso % (Auto) 0.3 (0.2-1.2) % Lymph # (Auto) 1.11 (0.9-3.2) K/mm3 Emery # (Auto) 0.6 (0.1-0.6) K/mm3 Eos # (Auto) 0.1 (0-0.3) K/mm3 Baso # (Auto) 0.0 (0.0-0.1) K/mm3 Abs Immat Gran (auto) 0.03 (0.00-0.031) K/mm3 Absolute Neuts (auto) 4.7 (1.3-6.7) K/mm3 Absolute Nucleated RBC 0.000 (0.0-0.012) K/mm3 Nucleated RBC % 0.0 (0.0-0.2) % Sodium 136 L (137-145) mmol/L Potassium 4.5 (3.4-5.0) mmol/L Chloride 102 (98-107) mmol/L Carbon Dioxide 21 L (22-30) mmol/L Anion Gap 13 H (4-12) mmol/L BUN 18 (9-20) mg/dL Creatinine 1.11 (0.7-1.3) mg/dL Estim Creat Clear Calc Not Reportable Estimated GFR > 60 (59 - ) Glucose 254 H (65-110) mg/dL Calcium 9.5 (8.4-10.2) mg/dL Total Bilirubin 0.7 (0.2-1.3) mg/dL AST 31 (17-59) U/L ALT 44 (6-50) U/L Alkaline Phosphatase 63 (38-126) U/L Total Protein 8.0 (6.3-8.2) g/dL Albumin 4.6 (3.5-5.1) g/dL Urine Color Yellow (Yellow) Urine Appearance Clear (Clear) Urine pH 5.5 (5.0-9.0) Ur Specific [place] 1.028 (1.001-1.035) Urine Protein 2+ H (Negative) mg/dL Urine Glucose (UA) 3+ H (Negative) mg/dL Urine Ketones Negative (Negative) mg/dL Ur Blood (Man) Negative (Negative) Urine Nitrate Negative (Negative) Urine Bilirubin Negative (Negative) Urine Urobilinogen 0.2 (<2.0) mg/dL Leukocyte Esterase Rfl Negative (Negative) JAVIER/UL Urine RBC 3-5 H (0-2) /hpf Urine WBC 0-5 (0-3) /hpf Ur Squamous Epith Cells None seen (Few) /hpf Urine Bacteria None seen /hpf Urine Casts 0-2 <Caleb Azul MD - Last Filed: 04/14/24 16:09> Imaging Data Radiologist's impression: ITS Impressions Abdomen/Pelvis CT 04/14/24 13:19 IMPRESSION: 1. Bilateral nonobstructing kidney stones. 2. Diffuse hepatic steatosis. 3. Right inguinal hernia containing fat. <Caleb Azul MD - Last Filed: 04/14/24 16:09> Discharge Plan Discharge Clinical Impression: Low back pain <Della Guallpa RESEARCH CHEMIST - Last Filed: 04/14/24 14:27> Patient Disposition: Home, Self-Care <Della Guallpa RESEARCH CHEMIST - Last Filed: 04/14/24 14:27> Condition: Stable <Della Guallpa RESEARCH CHEMIST - Last Filed: 04/14/24 14:27> Instructions: Antibiotic Form, Acute Low Back Pain (ED) <Della Guallpa RESEARCH CHEMIST - Last Filed: 04/14/24 14:27> Additional Instructions: Please return to the emergency department if you develop severe pain that is not controlled by pain medications or if you are unable to walk because of pain or weakness. Return to the emergency department immediately if you develop fevers, loss of bowel or bladder control (dribbling of urine or having accidents you wouldn't normally have), inability to urinate, numbness of your genital or anal area, or weakness/numbness of your legs or arms as these could all be signs of a serious medical emergency. <Della Guallpa RESEARCH CHEMIST - Last Filed: 04/14/24 14:27> Patient Language: Telugu <Della Guallpa, RESEARCH CHEMIST - Last Filed: 04/14/24 14:27> Prescriptions: New cyclobenzaprine 10 mg tablet 10 mg PO TID PRN (Reason: muscle spasm) Qty: 20 0RF No Action Jardiance 10 mg tablet azithromycin 250 mg tablet See Rx Instructions .ROUTE .COMPLEX Qty: 6 0RF Rx Instructions: For 250 mg dose pack: take 500 mg today (day 1), then 250 mg for 4 days (days 2-5) albuterol sulfate 90 mcg/actuation HFA aerosol inhaler 2 puff inhalation Q4-6H PRN (Reason: shortness of breath or wheezing) 30 Days Qty: 8.5 0RF amoxicillin-pot clavulanate 875-125 mg tablet 1 tablet PO Q12H 7 Days Qty: 14 0RF omeprazole 40 mg capsule,delayed release(DR/EC) 40 mg PO DAILY isosorbide mononitrate 60 mg tablet extended release 24 hr 120 mg PO DAILY albuterol sulfate [Ventolin HFA] 90 mcg/actuation HFA aerosol inhaler 2 puff INHALATION Q4-6H PRN (Reason: Shortness Of Breath) loratadine [Claritin] 10 mg Tablet 10 mg PO DAILY aspirin [Children's Aspirin] 81 mg tablet,chewable 81 mg PO DAILY meclizine 25 mg tablet 25 mg PO TID PRN (Reason: dizzines) Qty: 30 0RF bupropion HCl [Wellbutrin SR] 150 mg tablet sustained-release 12 hr 150 mg PO BID amlodipine 10 mg tablet 10 mg PO DAILY metformin 1,000 mg tablet 1,000 mg PO BID doxazosin [Cardura] 2 mg tablet 2 mg PO HS Trulicity 1.5 mg/0.5 mL pen injector 1.5 mg SUBCUT WEEKLY Rx Instructions: TAKES ON fridays Xarelto 2.5 mg tablet 2.5 mg PO BID atorvastatin 40 mg tablet 80 mg PO HS alprazolam 0.25 mg tablet 0.25 mg PO HS Rx Instructions: at bedtime tamsulosin 0.4 mg capsule 0.4 mg PO DAILY <Della Guallpa, RESEARCH CHEMIST - Last Filed: 04/14/24 14:27> Follow-up/Referrals: Angelina,JOVITA Junior [Primary Care Provider] - 1 Week <Della Guallpa APRN - Last Filed: 04/14/24 14:27>
[2024-04-14] MEDS: SODIUM CHLORIDE 0.9% IV 1,000 ML 999 ML IV CONT (15:07)
[2024-04-14] MEDS: TAMSULOSIN HCL 0.4 MG CAPSULE PO (15:07)
--- OUTSIDE RECORDS SUMMARY | 2024-04-14 15:11 | XMS_ITS | Clinical Summary ---
Author Organization [facility] Address [address] [address] Care Team Providers Care Bulker Name Role Phone Sandi Alfaro INTER COM [employer] Primary Care Provider Source Comments [facility],non-owned Affiliates and Associated Physician Practices is amultiple site organization consisting of ambulatory clinics and hospital sitesin [place], [place], [place] and [place]. This disclosure is being madepursuant to the Care Everywhere program and may not contain all information available regarding this patient. Last updated 17.[facility] Allergies No known active allergies Medications * [...] ve Non-react kendell 05/26/2018 5:12 PM CDT [facility] Comment: Neither HIV-1 p24 Antigen nor HIV-1/HIV-2 Antibodies are detected. Blood BLOOD SPECIMEN / Unknown Venipuncture / Unknown 05/26/2018 4:21 PM CDT 05/26/2018 4:26 PM CDT Jim Ann MD LAB - HEMATOLOGY DEDE MCLEOD Performing Organization Address [facility] Co de Phone Number [address] [phone] * HEPATITIS C AB SCREEN RFLX NAAT QUANT (05/26/2018 4:21 PM CDT) Hepatitis C Antibody Non-react kendell Non-reac tive 05/26/2018 5:13 PM CDT [facility] Comment: Hepatitis C Antibody screen indicates [...] - CHEMISTRY LORENZA BULLARD Performing Organization Address City/[facility]/ZIP Co de Phone Number [address] [phone] from Last 3 Months or Most Recently Relevant to Health Maintenance Advance Directives * Full Code (Latest Code Status on File) Date Activated Date Inactivated Comments 05/26/2018 2:01 PM 05/28/2018 11:56 AM Care Teams Bulker Relationship Specialty Start Date End Date Sandi Alfaro, INTER COM INST[employer]ER [facility] [place] [address] PCP - General 08/27/21
--- OUTSIDE RECORDS SUMMARY | 2024-04-14 15:11 | XMS_ITS | Patient Health Summary ---
Author Organization [facility] Address [address] [place] [address] Care Team Providers Care Supervisor Drilling And Shooting Name Role Phone Sandi Alfaro OUTREACH ASSOCIATE-EYEWEAR CONSULTANT Primary Care Provider Note from [facility],non-owned Affiliates and Associated Physician Practices is amultiple site organization consisting of ambulatory clinics and hospital sitesin [place], [place], [place] and [place]. This disclosure is being madepursuant to the Care Everywhere program and may not contain all information available regarding this patient. Last updated 17.[facility] Allergies No known active allergies Medications [...] of5 resultswithin the time period is included. [facility] Glucose WB/POC 131(H) 70 - 115 mg/dL 05/28/2018 6:57 AM CDT [facility] Specimen Type Arterial/C apillary 05/28/2018 6:57 AM CDT [facility] Blood BLOOD SPECIMEN / Unknown 05/28/2018 6:52 AM CDT 05/28/2018 6:57 AM CDT [facility] - 05/28/2018 6:57 AM CDT ROPING MACHINE TENDER: MARIZOL BOOKER Erick Vera MD LAB - POINT OF CARE ORDERABLES Performing Organization Address City/State/[place] Co de Phone Number [address] [phone] * PLATELET ANTIBODY DRUG DEPENDENT (05/28/2018 4:14 AM CDT) [facility] Patient Serum Without Drug Comment 06/16/2018 4:11 PM CDT [facility] ([facility]) Comment:Reference lab report sent via fax. Blood BLOOD SPECIMEN / Unknown Lab Venipuncture / Unknown 05/28/2018 4:14 AM CDT 05/28/2018 4:32 AM CDT [facility] - 06/16/2018 4:11 PM CDT Performed at: [facility] [employer] [facility] [employer] [place] [address] [place] [address] [place] [address] [phone] Junior Database Administrator: Husam Reyes MD, Phone: [phone] Tone Brower MD LAB - COAGULATION OR DERABLES [facility] ([facility]) [address] [place] [address], [facility] * (ABNORMAL) CBC W/O DIFFERENTIAL (05/27/2018 11:30 PM [facility]) Only the most recent of4 resultswithin the time period is included. WBC 7.1 3.5 - 10.5 10 3/uL 05/28/2018 12:01 AM [facility] RBC 4.15(L) 4.30 - 5.70 10 6/uL 05/28/2018 12:01 AM [facility] Hemoglobin 12.8(L) 13.5 - 17.5 g/dL 05/28/2018 12:01 AM [facility] Hematocrit 37.1(L) 39.0 - 50.0 % 05/28/2018 12:01 AM [facility] MCV 89.4 81.0 - 97.0 fL 05/28/2018 12:01 AM [facility] MCH 30.8 28.0 - 34.0 pg 05/28/2018 12:01 AM [facility] MCHC 34.5 32.0 - 36.0 g/dL 05/28/2018 12:01 AM [facility] Platelet Count 135(L) 150 - 400 10 3/uL 05/28/2018 12:01 AM [facility] RDW-SD 44.0 36.0 - 50.0 fL 05/28/2018 12:01 AM [facility] RDW-CV 13.5 11.2 - 14.8 % 05/28/2018 12:01 AM [facility] MPV 11.4 9.3 - 12.8 fL 05/28/2018 12:01 AM [facility] nRBC Absolute 0.00 0 10 3/uL 05/28/2018 12:01 AM [facility] nRBC Auto 0.0 0 /100 WBC 05/28/2018 12:01 AM [facility] Blood BLOOD SPECIMEN / Unknown Lab Venipuncture / Unknown 05/27/2018 11:30 PM CDT 05/27/2018 11:55 PM CDT Mehul Floyd MD LAB - HEMATOLOGY ORD HARSHA [facility] [address] [phone] * BASIC METABOLIC PANEL (CALCIUM TOTAL) (05/27/2018 11:30 PM CDT) Only the most recent of5 resultswithin the time period is included. BUN 17 7 - 26 mg/dL 05/28/2018 12:17 AM [facility] Creatinine 1.1 0.6 - 1.2 mg/dL 05/28/2018 12:17 AM [facility] Sodium 137 136 - 145 mmol/L 05/28/2018 12:17 AM [facility] Potassium 4.0 3.5 - 4.5 mmol/L 05/28/2018 12:17 AM [facility] Chloride 103 98 - 107 mmol/L 05/28/2018 12:17 AM [facility] CO2 24 22 - 29 mmol/L 05/28/2018 12:17 AM [facility] Glucose 102 70 - 115 mg/dL 05/28/2018 12:17 AM [facility] Calcium 9.4 8.4 - 10.2 mg/dL 05/28/2018 12:17 AM [facility] Anion Gap 14 8 - 18 05/28/2018 12:17 AM [facility] BUN/Creatinine Ratio 15 7 - 23 05/28/2018 12:17 AM [facility] Osmolality Calculated 286 270 - 300 mOsm/kg 05/28/2018 12:17 AM [facility] eGFR >60 >60 mL/min/1.7 3 m2 05/28/2018 12:17 AM [facility] Blood BLOOD SPECIMEN / Unknown Lab Venipuncture / Unknown 05/27/2018 11:30 PM CDT 05/27/2018 11:55 PM CDT Mehul Floyd MD LAB - CHEMISTRY LORENZA BULLARD [address] [phone] * PHOSPHORUS BLOOD (05/27/2018 11:30 PM CDT) Only the most recent of4 resultswithin the time period is included. Phosphorus 3.2 2.3 - 4.7 mg/dL 05/28/2018 12:17 AM CDT [facility] Blood BLOOD SPECIMEN / Unknown Lab Venipuncture / Unknown 05/27/2018 11:30 PM CDT 05/27/2018 11:55 PM CDT Mehul Floyd MD LAB - CHEMISTRY LORENZA BULLARD Performing Organization Address [facility]/[place] Co de Phone Number [address] [phone] * MAGNESIUM BLOOD (05/27/2018 11:30 PM CDT) Only the most recent of4 resultswithin the time period is included. Magnesium 1.7 1.6 - 2.6 mg/dL 05/28/2018 12:17 AM CDT [facility] Blood BLOOD SPECIMEN / Unknown Lab Venipuncture / Unknown 05/27/2018 11:30 PM CDT 05/27/2018 11:55 PM CDT Mehul Floyd MD LAB - CHEMISTRY LORENZA BULLARD Performing Organization Address [facility]/[place] Co de Phone Number [address] [phone] * MRI BRAIN WO CONTRAST (05/27/2018 12:51 [...] resultswithin the time period is included. Pathologist [facility] Troponin I <0.010 <0.032 ng/mL 05/27/2018 9:02 AM CDT [facility] Blood BLOOD SPECIMEN / Unknown Venipuncture / Unknown 05/27/2018 8:28 AM CDT 05/27/2018 8:28 AM CDT Mehul lFoyd MD LAB - CHEMISTRY ORDKristal BULLARD Performing Organization Address City/[facility]/ZIP Co de Phone Number [address] [phone] * HIV-1 HIV-2 ANTIGEN/ANTIBODY (05/26/2018 4:21 PM CDT) [facility] HIV Antigen/Antibod y 1 & 2 Non-reacti ve Non-react kendell 05/26/2018 5:12 PM CDT [facility] Comment: Neither HIV-1 p24 Antigen nor HIV-1/HIV-2 Antibodies are detected. Blood BLOOD SPECIMEN / Unknown Venipuncture / Unknown 05/26/2018 4:21 PM CDT 05/26/2018 4:26 PM CDT Jim Ann MD LAB - HEMATOLOGY ORD HARSHA [address] [phone] * HEPATITIS C AB SCREEN RFLX NAAT QUANT (05/26/2018 4:21 PM CDT) Pathologist [facility] Hepatitis C Antibody Non-react kendell Non-reac tive 05/26/2018 5:13 PM CDT [facility] Comment: Hepatitis C Antibody screen indicates no [...] BULL[facility] Organization Address City/State/ZIP Co de Phone Number [facility] [address] [place] [address], [facility] [phone] * DRUG SCREEN TOX URINE PANEL (05/26/2018 3:09 PM CDT) [facility] Amphetamines Screen Urine Negative Negative: < 1000 ng/mL 05/26/2018 3:23 PM CDT [facility] Barbiturates Screen Urine Negative Negative: < 200 ng/mL 05/26/2018 3:23 PM CDT [facility] Benzodiazepine Screen Urine Negative Negative: < 200 ng/mL 05/26/2018 3:23 PM CDT [facility] Opiates Urine Negative Negative: < 300 ng/mL 05/26/2018 3:23 PM CDT [facility] Cocaine Metabolites Urine Negative Negative: < 300 ng/mL 05/26/2018 3:23 PM CDT [facility] Phencyclidine Screen Urine Negative Negative: < 25 ng/ml 05/26/2018 3:23 PM T [facility] Cannabinoids Screen Urine Negative Negative: <50 ng/mL 05/26/2018 3:23 PM CDT [facility] Methadone Screen Urine Negative Negative: < 300 ng/mL 05/26/2018 3:23 PM CDT [facility] Urine URINE / Unknown Collection / Unknown 05/26/2018 3:09 PM CDT 05/26/2018 3:09 PM CDT Narrative [facility] - 05/26/2018 3:23 PM CDT The Urine Toxicology Screening Panel does not screen for Propoxyphene, Meprobamate, Carisoprodol, Trazodone, bgvm-alg-[id number] medications and/or volatiles (Acetone, Isopropanol, Methanol or [...] URINE CHEMISTR Y ORDERABLES Performing Organization Address City/[facility]/ZIP Co de Phone Number [facility] [address] [phone] * EKG 12-LEAD (05/26/2018 2:35 PM CDT) Only the most recent of3 resultswithin the time period is included. Ventricular Rate 78 BPM [facility] Atrial Rate 78 BPM [facility] P-R Interval 152 ms [facility] QRS Duration ms 96 ms [facility] Q-T Interval ms 422 ms [facility] QTC Calculation (Bezet) 481 ms [facility] Calculated P [place] 47 degrees [facility] Calculated R [place] 2 degrees [facility] Calculated T [place] 36 degrees [facility] Interpretation EKG NORMAL SINUS RHYTHM INCOMPLETE RIGHT BUNDLE BRANCH BLOCK PROLONGED QT ABNORMAL ECG WHEN COMPARED WITH ECG OF 20-AUG-2016 05:38, NO SIGNIFICANT CHANGE WAS FOUND Confirmed by Max INGRAM, DEMARCUS ([id number]), order editor Jax Colmenares ([id number]) on 06/09/2018 10:06:25 PM [facility] 05/26/2018 2:35 PM CDT 06/09/2018 10:06 PM CDT Ruiz Chávez MD ECG ORDERABLES Performing Organization Address [facility]/[place] Co de Phone Number [facility] * TYPE + SCREEN PANEL (05/26/2018 2:00 PM CDT) Only the most recent of2 resultswithin the time period is included. [facility] Antibody Screen NEG 9 3:08 PM CDT [facility] ABO Rh A POS 05/26/2018 3:08 PM CDT [facility] Blood Bank BLOOD SPECIMEN / Unknown Venipuncture / Unknown 05/26/2018 2:00 PM CDT 05/26/2018 2:13 PM CDT Ruiz Chávez MD LAB - BLOOD BANK ORD ERABLES Performing Organization Address [facility]/ZIP Co de Phone Number [facility] [address] * PT-INR [facility] (05/26/2018 1:59 PM CDT) Only the most recent of2 resultswithin the time period is included. PT 12.8 12.1 - 14.8 Seconds 05/26/2018 2:14 PM CDT [facility] INR 1.0 See Comment 05/26/2018 2:14 PM CDT [facility] Comment: The suggested therapeutic range for standard coumadin (warfarin) therapy is an INR of 2.0-3.0. For high-risk patients (Mechanical Mitral Valve Prosthesis, etc.), the suggested prophylactic therapeutic range is an INR of 2.5-3.5. Blood BLOOD SPECIMEN / Unknown Venipuncture / Unknown 05/26/2018 1:59 PM CDT 05/26/2018 2:05 PM CDT Ruiz Chávez MD LAB - COAGULATION OR DERABLES Performing Organization Address [facility]/[place] Co de Phone Number [facility] [address] [phone] * (ABNORMAL) HEMOGLOBIN A1C (05/26/2018 1:59 PM CDT) Only the most recent of2 resultswithin the time period is included. Hemoglobin A1c 6.9(H) 4.4 - 6.3 % 05/27/2018 1:45 PM CDT [facility] Comment:Hemoglobin variant d etected. Abnormal hemoglobin may not form glycated product at the same rate as hemoglobin A and/or hemoglobin variant may interfere with the accurate measurement of HbA1C. Consider measurement of HbA1C by alternative method. Recommend hemoglobin electrophoresis to evaluate the variant hemoglobin if clinically indicated. Estimated Average Glucose 151 mg/dL 05/27/2018 1:45 PM CDT [facility] Comment: HbA1c Interpretation: Treatment target values recommended by ADA and other clinical organizations should be used to evaluate metabolic control in patients. Treatment Target Values: Normal : < 5.7% Pre-diabetes: 5.7-6.4% Diabetes: Equal to or greater than 6.5% Reference: [place] [employer] Standards of Care in Diabetes -2014 In patients 70 years and older consider HbA1c target range of 7.0-7.5% Reference: Diabetes Mellitus in Older People: Position Statement on behalf of the International Association of Gerontology and Geriatrics (IAGG), the Diabetes Working Libertarian for Older People (EDWPOP), and the International Task Force of Experts in Diabetes. Anil Irvin et al. J [place] [employer] Association. 2012 Test results diagnostic of diabetes should be repeated for confirmation. The Sebia Capillary 2 assay for the measurement of HbA1c is a National Glycohemoglobin Standardization Program (NGSP)certified method. Blood BLOOD SPECIMEN / Unknown Venipuncture / Unknown 05/26/2018 1:59 PM CDT 05/26/2018 2:19 PM CDT Mehul Floyd MD LAB - CHEMISTRY LORENZA BULLARD [facility] Organization Address City/State/ZIP Co de Phone Number [address] [phone] * (ABNORMAL) CBC W AUTO DIFFERENTIAL (05/26/2018 1:59 PM CDT) Only the most recent of3 resultswithin the time period is included. WBC 8.0 3.5 - 10.5 10 3/uL 05/26/2018 2:08 PM [facility] RBC 4.70 4.30 - 5.70 10 6/uL 05/26/2018 2:08 PM [facility] Hemoglobin 14.3 13.5 - 17.5 g/dL 05/26/2018 2:08 PM [facility] Hematocrit 42.0 39.0 - 50.0 % 05/26/2018 2:08 PM [facility] MCV 89.4 81.0 - 97.0 fL 05/26/2018 2:08 PM [facility] MCH 30.4 28.0 - 34.0 pg 05/26/2018 2:08 PM [facility] MCHC 34.0 32.0 - 36.0 g/dL 05/26/2018 2:08 PM [facility] Platelet Count 158 150 - 400 10 3/uL 05/26/2018 2:08 PM [facility] RDW-SD 44.7 36.0 - 50.0 fL 05/26/2018 2:08 PM [facility] RDW-CV 13.7 11.2 - 14.8 % 05/26/2018 2:08 PM [facility] MPV 10.9 9.3 - 12.8 fL 05/26/2018 2:08 PM [facility] nRBC Absolute 0.00 0 10 3/uL 05/26/2018 2:08 PM [facility] nRBC Auto 0.0 0 /100 WBC 05/26/2018 2:08 PM [facility] Neutrophils % 69.0 35.0 - 70.0 % 05/26/2018 2:08 PM [facility] Lymphocytes % 16.7(L) 19.7 - 55.1 % 05/26/2018 2:08 PM [facility] Monocytes % 9.7 3.0 - 15.0 % 05/26/2018 2:08 PM [facility] Eosinophils % 4.1 0.0 - 6.0 % 05/26/2018 2:08 PM [facility] Basophil % 0.1 0.0 - 1.5 % 05/26/2018 2:08 PM [facility] Neutrophils Absolute 5.5 1.6 - 7.0 10 3/uL 05/26/2018 2:08 PM [facility] Lymphocyte Absolute 1.3 0.8 - 2.9 10 3/uL 05/26/2018 2:08 PM [facility] Monocytes Absolute 0.78(H) 0.14 - 0.66 10 3/uL 05/26/2018 2:08 PM [facility] Eosinophils Absolute 0.33 0.00 - 0.45 10 3/uL 05/26/2018 2:08 PM [facility] Basophils Absolute 0.01 0.00 - 0.06 10 3/uL 05/26/2018 2:08 PM [facility] Immature Granulocytes % 0.4 0.0 - 1.0 % 05/26/2018 2:08 PM [facility] Blood BLOOD SPECIMEN / Unknown Venipuncture / Unknown 05/26/2018 1:59 PM CDT 05/26/2018 2:05 PM CDT Ruiz Chávez MD LAB - HEMATOLOGY ORD ERABLES [facility] [address] [phone] * (ABNORMAL) COMPREHENSIVE METABOLIC PANEL (05/26/2018 1:59 PM CDT) BUN 25 7 - 26 mg/dL 05/26/2018 2:23 PM [facility] Creatinine 1.1 0.6 - 1.2 mg/dL 05/26/2018 2:23 PM [facility] Sodium 138 136 - 145 mmol/L 05/26/2018 2:23 PM [facility] Potassium 4.1 3.5 - 4.5 mmol/L 05/26/2018 2:23 PM [facility] Chloride 101 98 - 107 mmol/L 05/26/2018 2:23 PM [facility] CO2 26 22 - 29 mmol/L 05/26/2018 2:23 PM [facility] Glucose 109 70 - 115 mg/dL 05/26/2018 2:23 PM [facility] Calcium 9.9 8.4 - 10.2 mg/dL 05/26/2018 2:23 PM [facility] Protein Total 7.8 6.0 - 8.3 g/dL 05/26/2018 2:23 PM [facility] Albumin 4.0 3.4 - 5.0 g/dL 05/26/2018 2:23 PM [facility] Bilirubin Total 0.8 0.2 - 1.2 mg/dL 05/26/2018 2:23 PM [facility] Alkaline Phosphatase 57 40 - 150 Units/L 05/26/2018 2:23 PM [facility] ALT 56(H) 0 - 55 Units/L 05/26/2018 2:23 PM [facility] AST 44(H) 5 - 34 Units/L 05/26/2018 2:23 PM [facility] Anion Gap 15 8 - 18 05/26/2018 2:23 PM [facility] BUN/Creatinine Ratio 23 7 - 23 05/26/2018 2:23 PM T [facility] Osmolality Calculated 291 270 - 300 mOsm/kg 05/26/2018 2:23 PM [facility] Albumin/Globulin Ratio 1.1 1.1 - 2.3 05/26/2018 2:23 PM [facility] eGFR >60 >60 mL/min/1.7 3 m2 05/26/2018 2:23 PM [facility] Blood BLOOD SPECIMEN / Unknown Venipuncture / Unknown 05/26/2018 1:59 PM CDT 05/26/2018 2:05 PM CDT Ruiz Chávez MD LAB - CHEMISTRY LORENZA BULLARD [facility] Organization Address City/State/ZIP Co de Phone Number [facility] [address] [place] [address] * (ABNORMAL) LIPID PROFILE (05/26/2018 1:59 PM CDT) Only the most recent of2 resultswithin the time period is included. Cholesterol Total 125 <200 mg/dL 05/26/2018 2:46 PM [facility] HDL 26(L) >40 mg/dL 05/26/2018 2:46 PM [facility] Comment: ATP III Classification of HDL Cholesterol: <40 mg/dL: Considered a major risk factor. >60 mg/dL: Considered a negative risk factor. LDL Calculated 38 <100 mg/dL 05/26/2018 2:46 PM [facility] Comment: ATP III Classification of LDL Cholesterol: <100 mg/dL: Optimal 100 - 129 mg/dL: Near Optimal/Above Optimal 130 - 159 mg/dL: Borderline High 160 - 189 mg/dL: High >190 mg/dL: Very High Triglycerides 307(H) <150 mg/dL 05/26/2018 2:46 PM [facility] Comment: ATP III Classification of Triglycerides: <150 mg/dL: Normal 150 - 199 mg/dL: Borderline High 200 - 400 mg/dL: High >500 mg/dL: Very High Blood BLOOD SPECIMEN / Unknown Venipuncture / Unknown 05/26/2018 1:59 PM CDT 05/26/2018 2:19 PM CDT Mehul Floyd MD LAB - CHEMISTRY LORENZA BULLARD [facility] Organization Address City/State/ZIP Co de Phone Number [address] [phone] * CT ANGIO BRAIN NECK STROKE (05/26/2018 [...] stenosis. Report dictated by Shaun Garland MD (sr vice president). I, Dr. YOSELYN MURILLO have personally [...] Outside hospital CT head dated 05/26/2018 from [facility], CT head dated 05/19/2018, MRI brain [...] the intracranial vertebrals, basilar artery, and the roll on worker appear unremarkable. CTA NECK: Noted normal variant [...] Outside hospital CT head dated 05/26/2018 from [facility], CT head dated 05/19/2018, MRI brain [...] circulation, the intracranial vertebrals, basilarartery, and the roll on worker appear unremarkable. CTA NECK: Noted normal variant [...] vertebralstenosis. Report dictated by Shaun Garland MD (sr vice president). Dr. YOSELYN Roman have personally reviewed [...] stenosis. Report dictated by Shaun Garland MD (sr vice president). Dr. YOSELYN Roman have personally reviewed [...] Outside hospital CT head dated 05/26/2018 from [facility], CT head dated 05/19/2018, MRI brain [...] the intracranial vertebrals, basilar artery, and the roll on worker appear unremarkable. CTA NECK: Noted normal variant [...] Outside hospital CT head dated 05/26/2018 from [facility], CT head dated 05/19/2018, MRI brain [...] circulation, the intracranial vertebrals, basilarartery, and the roll on worker appear unremarkable. CTA NECK: Noted normal variant [...] vertebralstenosis. Report dictated by Shaun Garland MD (sr vice president). I, Dr. YOSELYN MURILLO have personally reviewed and interpreted this examination/study. This report was electronically signed by YOSELYN MURILLO on 05/26/2018 2:09 PM . Ruiz Chávez MD CT ORDERABLES * (ABNORMAL) GLUCOSE ACCUCHECK (08/21/2016 12:30 PM CDT) Only the most recent of6 resultswithin the time period is included. Glucose, Fingerstick 154(H) 70-115mg/d L mg/dL LOREN NUNEZ) Comment:[employer] Buffer: YUNG RANDI ILYA 08/21/2016 12:3 0 PM CDT Gera Magallon MD LAB - CHEMISTRY LORENZA BULLARD [facility] Organization Address City/State/ZIP Co de Phone Number [...] CK Total 87 30 - 200 Units/L [facility] CK-MB 0.7 0.0 - 6.6 ng/mL [facility] Blood specimen (specimen) BLOOD SPECIMEN / Unknown 08/20/2016 9:00 AM CDT 08/20/2016 9:14 AM CDT Bishop Walker MD [facility] Organization Address City/State/ZIP Co de Phone Number [address] [phone] * DRUG ABUSE PANEL 10-20+ETHANOL URINE NO CONFIRM (08/20/2016 7:07 AM CDT) Amphetamines Screen Urine Negative Negative: < 1000 ng/mL [facility] Barbiturates Screen Urine Negative Negative: < 200 ng/mL [facility] Benzodiazepine Screen Urine Negative Negative: < 200 ng/mL [facility] Opiates Urine Negative Negative: < 300 ng/mL [facility] Cocaine Metabolites Urine Negative Negative: < 300 ng/mL [facility] Phencyclidine Screen Urine Negative Negative: < 25 ng/ml [facility] Cannabinoids Screen Urine Negative Negative: <50 ng/mL [facility] Methadone Screen Urine Negative Negative: < 300 ng/mL [facility] Urine specimen (specimen) URINE / Unknown 08/20/2016 7:07 AM CDT 08/20/2016 7:22 AM CDT Narrative [facility] - 08/20/2016 8:03 AM CDT The Urine Toxicology Screening Panel does not screen for Propoxyphene, Meprobamate, Carisoprodol, Trazodone, gtaw-yye-qgiuyht medications and/or volatiles (Acetone, Isopropanol, Methanol or [...] URINE CHEMISTR Y ORDERABLES Performing Organization Address City/[facility]/ZIP Co de Phone Number [address] [phone] * (ABNORMAL) HEPATIC FUNCTION PANEL (08/20/2016 5:28 AM CDT) Protein Total 6.8 6.0 - 8.3 g/dL [facility] Albumin 3.5 3.4 - 5.0 g/dL [facility] Bilirubin Total 0.8 0.2 - 1.2 mg/dL [facility] Bilirubin Conjugated 0.2 0.0 - 0.5 mg/dL [facility] Bilirubin Unconjugated 0.6 Unconjugated Bilirubin is a calculated value: Reference ranges have not been established. mg/dL [facility] Alkaline Phosphatase 55 40 - 150 Units/L [facility] ALT 69(H) 0 - 55 Units/L [facility] AST 46(H) 5 - 34 Units/L [facility] Albumin/Globulin Ratio 1.1 1.1 - 2.3 [facility] Blood specimen (specimen) BLOOD SPECIMEN / Unknown 08/20/2016 5:28 AM CDT 08/20/2016 5:32 AM CDT Bishop Walker MD LAB - CHEMISTRY ORDE RABLES Performing Organization Address City/[facility]/ZIP Co de Phone Number [address] [phone] * ECHO W DOPPLER AND COLOR FLOW [...] CDT) APTT 27.5 23.0 - 38.4 Seconds [facility] Comment:Suggested therapeuti c range for full dose I.V. heparin therapy for venous thromboembolism is 66.0-91.0 seconds. Blood specimen (specimen) BLOOD SPECIMEN / Unknown 08/19/2016 6:11 PM CDT 08/19/2016 6:11 PM CDT Narrative [facility] - 08/19/2016 6:23 PM CDT Please ensure that the aPTT specimen is received in the clinical lab within 1 hour of collection if it is used for therapeutic heparin monitoring. Processing of heparinized specimens older than 1 hour may result in inaccurate test results. Is patient on Heparin, Argatroban or Dabigatran?->N Bishop Walker MD LAB - COAGULATION OR DERABLES [address] [phone] * CULTURE URINE (10/19/2013 11:31 AM CDT) Only the most recent of2 resultswithin the time period is included. Culture Urine No Growth of >=100 CFU/ml after 48 Hours [facility] Urine specimen (specimen) URINE SPECIMEN OBTAINED BY CLEAN CATCH PROCEDURE / Unknown 10/19/2013 11:31 AM CDT 10/19/2013 3:49 PM CDT Narrative [facility] - 10/21/2013 3:11 PM CDT EricSpecalexandrian#[id number] Eric Loc//Bed: 3 [facility]/316/02 CLN CATCH U @ CHRISTIANNE DATE was changed from 10/18/13 to 10/19/13 @ by DELICIA. Historical Provider LAB - MICROBIOLOG Y ORDERABLES [address] [phone] Care Teams Supervisor Drilling And Shooting Relationship Specialty Start Date End Date Sandi Alfaro, OUTREACH ASSOCIATE-EYEWEAR CONSULTANT [address] [place] [id number] PCP - General 08/27/21
--- OUTSIDE RECORDS SUMMARY | 2024-04-14 15:11 | XMS_ITS | Clinical Summary ---
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 DOI 10/12/[address] Willoughby. [employer] remote monitoring. 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 02/20/2015 Overview (06/07/2016): Coronary artery disease involving afognak coronary artery of afognak heart with other form of angina pectoris CVA, old, hemiparesis ([facility]) 02/20/2015 Overview (06/07/2016): CVA, old, hemiparesis Mixed diabetic hyperlipidemi a associated with type 2 diabetes mellitus ([facility]) 02/20/2015 Overview (06/07/2016): DM type [...] Type Department Care Team Description 04/11/2024 Telephone [facility] Medical [facility] Cardiology [address] [place] [address] Fernando Modi MD NM stress test instructions 04/04/2024 1:00 PM DIVERSITY MANAGER Ancillary Procedure [facility] Cardiology [address] [place] [address] [place] [phone] 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 (HCC) 03/29/2024 Telephone [place] [address] [place] [phone] Martine Gibson NP 03/28/2024 9:00 AM DIVERSITY MANAGER Office Visit [place] [address] [place] [phone] Martine Gibson NP 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 (HCC) (Primary Dx); CVA, old, hemiparesis (CMS/HCC) (HCC); Hypertension associated with diabetes (HCC); Recently quit using tobacco 03/24/2024 Telephone [place] [address] [place] [phone] Fernando Modi MD Chest Pain 01/18/2024 9:00 AM DIVERSITY MANAGER Office Visit [facility] Cardiology [address] [place] [address] [place] [phone] Fernando Modi MD 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 (HCC) (Primary Dx); Chronic heart failure with preserved ejection fraction (CMS/HCC) (HCC); Mixed diabetic hyperlipidemia associated with type 2 diabetes mellitus (CMS/HCC) (HCC); Hypertensive heart disease with chronic diastolic congestive heart failure (CMS/HCC) (HCC) 01/18/2024 Orders Only [facility] Cardiology [address] [place] [address] [place] [phone] ProviderStuart MD from Last 3 Months Surgical [...] on file Legal Sex Male 3:15 AM DIVERSITY MANAGER Gender Identity Male 09/03/2018 6:22 AM CDT Sexual Orientation Straight 09/03/2018 6: 22 AM CDT Obstetrics History Last Filed Vital Signs Vital Sign Reading Time Taken Comments Blood Pressure 132/72 03/28/2024 9:10 AM DIVERSITY MANAGER Pulse 82 01/18/2024 8:53 AM DIVERSITY MANAGER Temperature - - Respiratory Rate - - Oxygen Saturation 96% 03/28/2024 9:10 AM DIVERSITY MANAGER Inhaled Oxygen Concentration - - Weight 137.4 kg (303 lb) 03/28/2024 9:10 AM DIVERSITY MANAGER Height 182.9 cm (6') 03/28/2024 9:10 AM DIVERSITY MANAGER Body Mass Index 41.09 03/28/2024 9:10 AM DIVERSITY MANAGER Plan of Treatment Health Maintenance Due Date Last Done Comments Albumin Creatinine Ratio, Urine 1960 Colon Cancer Screening-Colonoscopy 1959 Depression Screening 1959 Fall Risk Assessment 1960 Hemoglobin A1C 1959 Hepatitis C Screening 1959 Prostate Cancer Screening-PSA 1960 eGFR 1960 Dilated Eye Exam 1959 Foot Exam 1959 Pneumococcal vaccine 65+ (1 of 2 - PCV) 1965 Hepatitis B Screening 1977 Zoster Vaccine (1 of 2) 2009 Covid-19 Vaccine (4 - 2023-2 5 season) 2023 12/31/2020, 05/11/2020, 04/13/2020 Abdominal Aortic Aneurysm (A AA) Screen 2024 04/28/2017 Well Visit 65+ 2024 Lipid Panel 10/19/2024 10/20/2023, 04/30, 07/01/2022, Additional history exists DTaP/Tdap/Td Vaccine (3 - Td or Tdap) 02/25/2026 02/26/2016, 11/22/2014 Influenza Vaccine Completed 12/16/2023, , 12/31/2021, Additional history exists Procedures Procedure Name Priority Date/Time Associated Diagnosis Comments TRANSTHORACIC ECHO (TTE) COMPLETE W DOPPLER/CF W CONTRAST Routine 04/04/2024 1:37 PM DIVERSITY MANAGER 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 (HCC) LIPID PANEL Routine 10/20/2023 from Last 3 Months or Most Recently Relevant to Health Maintenance Results * TRANSTHORACIC ECHO (TTE) COMPLETE W DOPPLER/CF W CONTRAST (04/04/2024 1:37 PM DIVERSITY MANAGER) LV EF 75 % CONS SCIMAGE Anatomical Region Laterality Modality Ultrasound 04/04/2024 12:5 7 PM DIVERSITY MANAGER Narrative 04/04/2024 3:50 PM DIVERSITY MANAGER [facility] Medical Group Cardiology [address] [facility] [address] [id number] [address] [facility] [address], [place] [address] P:[phone] P:[phone] Echocardiographic Report Patient Name: VINI HALEY B : 1960 Study Date: 04/04/2024 12:57:00 PM Gender: M Tech: Location: [place] Ref Provider: MARTINE GIBSON Height(Cm): 183 BSA: 2.64 Weight(Kg): 137.4 Heart Rate: 79 BP: 132 / 72 Quality: Definity contrast agent used to enhance endocardial border definition Order Provider: MARTINE GIBSON PROCEDURES: Echocardiographic Report: Transthoracic echocardiogram with complete 2D, M-Mode, color Doppler examination and Definity contrast. INDICATIONS: Coronary Artery Disease, Shortness of breath, and I25.118 Atherosclerotic heart disease of afognak coronary artery with other forms of angina pectoris. MEASUREMENTS: 2D/MM Value Range Doppler Value Range EF Mod BP 63 % [ 52 - 72 ] AV Mean PG 5 mmHg Estimated EF 75 % AV Peak Omar 1.38 m/s [ 1.00 - 1.70 ] LVIDd 2D 4.52 cm [ 4.20 - 5.80 ] AV Peak PG 8 mmHg LVIDd MM 5.71 cm [ 4.20 - 5.80 ] AV VTI 25.77 cm LVIDs 2D 2.97 cm [ 2.50 - 4.00 ] LVOT Peak Omar 1.07 m/s [ 0.70 - 1.10 ] LVIDs MM 4.56 cm [ 2.50 - 4.00 ] LVOT VTI 21.78 cm LVPWd MM 1.23 cm [ 0.60 - 1.00 ] MV E Peak Omar 0.57 m/s [ 0.60 - 1.30 ] IVSd 2D 1.29 cm [ 0.60 - 1.00 ] MV A Peak Omar 0.72 m/s [ 1.00 - 1.20 ] IVSd MM 1.23 cm [ 0.60 - 1.00 ] MV Decel Time 204 msec [ 104 - 258 ] LA Dimension MM 4.28 cm [ 3.00 - 4.00 ] PV Peak Omar 0.89 m/s [ 0.40 - 0.80 ] AoR Diam MM 3.73 cm [ 3.10 - 3.70 ] TR Peak Omar 2.33 m/s [ 1.00 - 2.80 ] LA Volume Index 15 cc/m2 [ 16 - 34 ] TR Peak PG 22 mmHg RVSP 30.00 mmHg [ 10.00 - 36.00 ] Lateral E` 0.06 m/s [ 0.10 - 0.15 ] E` 0.05 m/s E/E` 10 2D/MM Value Range Doppler Value Range - FINDINGS: Interpretation Site: Exam was interpreted at [facility]. Left Ventricle: Normal left ventricular size. Definity contrast agent used to visually enhance endocardial wall motion and contractility. Lot Number: [id number]. Moderate concentric left ventricular hypertrophy. Hyperdynamic left ventricular function. No focal wall motion abnormalities. Impaired diastolic relaxation Grade I. Ejection fraction is measured at 63 %. Ejection Fraction is visually estimated to be 75 %. Right Ventricle: Normal right ventricular size. Left Atrium: There is mild enlargement of left atrium. Right Atrium: The right atrium is normal in size. Atrial Septum: Normal atrial septum. Mitral Valve: Normal appearance of the mitral valve. Mild mitral annular calcification. Aortic Valve: Aortic cusps appear mildly sclerotic. Tricuspid Valve: Normal appearance of the tricuspid valve. Estimated peak RVSP is 30 mmHg. Pulmonic Valve: Pulmonic valve not well visualized. Pericardium: Normal pericardium with no significant pericardial effusion. Aorta: Normal aortic root. IVC: The IVC is not well visualized. Pulmonary Artery: Pulmonary artery not well visualized. CONCLUSIONS: Normal left ventricular size. Definity contrast agent used to visually enhance endocardial wall motion and contractility. Lot Number: [id number]. Moderate concentric left ventricular hypertrophy. Hyperdynamic left ventricular function. No focal wall motion abnormalities. Impaired diastolic relaxation Grade I. Ejection fraction is measured at 63 %. Ejection Fraction is visually estimated to be 75 %. There is mild enlargement of left atrium. Normal appearance of the mitral valve. Mild mitral annular calcification. Aortic cusps appear mildly sclerotic. Technically difficult study with limited views. Electronically Signed By: Todd Kwan MD, [facility] 04/04/2024 3:49:55 PM DIVERSITY MANAGER Procedure Note Todd Kwan MD - 04/04/2024 [facility] Medical Group Cardiology [address] [facility] [address] [address] [address] [facility] [address], [address], [place] [address] P:[phone] P:[phone] Echocardiographic Report Patient Name: VINI HALEY B : 1960 Study Date: 04/04/2024 12:57:00 PM Gender: M Tech: Location: [place] Ref Provider: MARTINE GIBSON Height(Cm): 183 BSA: 2.64 Weight(Kg): 137.4 Heart Rate: 79 BP: 132 / 72 Quality: Definity contrast agent used to enhance endocardial borderdefinition Order Provider: MARTINE GIBSON PROCEDURES: Echocardiographic Report: Transthoracic echocardiogram with complete 2D, M-Mode, color Dopplerexamination and Definity contrast. INDICATIONS: Coronary Artery Disease, Shortness of breath, and I25.118 Atheroscleroticheart disease of afognak coronary artery with other forms of angina pectoris. MEASUREMENTS: 2D/MM Value Range Doppler ValueRange EF Mod BP 63 % [ 52 - 72 ] AV Mean PG 5mmHg Estimated EF 75 % AV Peak Omar 1.38m/s [ 1.00 - 1.70 ] LVIDd 2D 4.52 cm [ 4.20 - 5.80 ] AV Peak PG 8mmHg LVIDd MM 5.71 cm [ 4.20 - 5.80 ] AV VTI 25.77cm LVIDs 2D 2.97 cm [ 2.50 - 4.00 ] LVOT Peak Omar 1.07m/s [ 0.70 - 1.10 ] LVIDs MM 4.56 cm [ 2.50 - 4.00 ] LVOT VTI 21.78cm LVPWd MM 1.23 cm [ 0.60 - 1.00 ] MV E Peak Omar 0.57m/s [ 0.60 - 1.30 ] IVSd 2D 1.29 cm [ 0.60 - 1.00 ] MV A Peak Omar 0.72m/s [ 1.00 - 1.20 ] IVSd MM 1.23 cm [ 0.60 - 1.00 ] MV Decel Time 204msec [ 104 - 258 ] LA Dimension MM 4.28 cm [ 3.00 - 4.00 ] PV Peak Omar 0.89m/s [ 0.40 - 0.80 ] AoR Diam MM 3.73 cm [ 3.10 - 3.70 ] TR Peak Omar 2.33m/s [ 1.00 - 2.80 ] LA Volume Index 15 cc/m2 [ 16 - 34 ] TR Peak PG 22mmHg RVSP 30.00 mmHg [ 10.00 - 36.00 ] Lateral E` 0.06 m/s [ 0.10 - 0.15 ] E` 0.05 m/s E/E` 10 2D/MM Value Range Doppler ValueRange - FINDINGS: Interpretation Site: Exam was interpreted at [facility]. Left Ventricle: Normal left ventricular size. Definity contrast agent used to visuallyenhance endocardial wall motion and contractility. Lot Number: [id number]. Moderateconcentric left ventricular hypertrophy. Hyperdynamic left ventricular function. No focalwall motion abnormalities. Impaired diastolic relaxation Grade I. Ejection fraction ismeasured at 63 %. Ejection Fraction is visually estimated to be 75 %. Right Ventricle: Normal right ventricular size. Left Atrium: There is mild enlargement of left atrium. Right Atrium: The right atrium is normal in size. Atrial Septum: Normal atrial septum. Mitral Valve: Normal appearance of the mitral valve. Mild mitral annularcalcification. Aortic Valve: Aortic cusps appear mildly sclerotic. Tricuspid Valve: Normal appearance of the tricuspid valve. Estimated peak RVSP is 30mmHg. Pulmonic Valve: Pulmonic valve not well visualized. Pericardium: Normal pericardium with no significant pericardial effusion. Aorta: Normal aortic root. IVC: The IVC is not well visualized. Pulmonary Artery: Pulmonary artery not well visualized. CONCLUSIONS: Normal left ventricular size. Definity contrast agent used to visuallyenhance endocardial wall motion and contractility. Lot Number: [id number]. Moderateconcentric left ventricular hypertrophy. Hyperdynamic left ventricular function. No focalwall motion abnormalities. Impaired diastolic relaxation Grade I. Ejection fraction ismeasured at 63 %. Ejection Fraction is visually estimated to be 75 %. There is mild enlargement of left atrium. Normal appearance of the mitral valve. Mild mitral annularcalcification. Aortic cusps appear mildly sclerotic. Technically difficult study with limited views. Electronically Signed By: Todd Kwan MD, [facility] 04/04/2024 3:49:55 PM DIVERSITY MANAGER Martine Gibson NP CV ECHO PROCEDURES Final Result * (ABNORMAL) Lipid panel (10/20/2023) SCRIBED Cholesterol, [...] Recently Relevant to Health Maintenance Insurance MEDICARE [facility] MEDICARE MEDICARE [facility] MEDICARE Care Teams General Surgeon Relationship Specialty Start Date End Date Sandi Alfaro PA PCP - General Nurse Practitioner 08/21/17
--- OUTSIDE RECORDS SUMMARY | 2024-04-14 15:11 | XMS_ITS | Referral Summary ---
Author Organization [facility] [employer] Address [address] [place] [address] Care Team Providers Care Billet Worker Name Role Phone Sandi Alfaro WEIGHTS AND MEASURES INSPECTOR-INSULATION CUTTER AND FORMER Primary Care Provider Source Comments [facility] [employer],non-owned Affiliates and Associated Physician Practices is amultiple site organization consisting of ambulatory clinics and hospital sitesin [place], [place], [place] and [place]. This disclosure is being madepursuant to the Care Everywhere program and may not contain all information available regarding this patient. Last updated 17.[facility] [employer] Allergies No known active allergies Medications * [...] 5:12 PM CDT [facility] Comment: Neither HIV-1 p24 Antigen nor HIV-1/HIV-2 Antibodies are detected. Blood BLOOD SPECIMEN / Unknown Venipuncture / Unknown 05/26/2018 4:21 PM CDT 05/26/2018 4:26 PM CDT Jim Ann MD LAB - HEMATOLOGY ORD ERABLES [facility] [address] [place] [address] * HEPATITIS C AB SCREEN RFLX NAAT QUANT (05/26/2018 4:21 PM CDT) Hepatitis C Antibody Non-react kendell Non-reac tive 05/26/2018 5:13 PM CDT [facility] Comment: Hepatitis C Antibody screen indicates [...] Ann MD LAB - CHEMISTRY [facility] [address] [phone] from Last 3 Months or Most Recently Relevant to Health Maintenance Advance Directives * Full Code (Latest Code Status on File) Date Activated Date Inactivated Comments 05/26/2018 2:01 PM 05/28/2018 11:56 AM Care Teams Billet Worker Relationship Specialty Start Date End Date Sandi Alfaro, WEIGHTS AND MEASURES INSPECTOR-INSULATION CUTTER AND FORMER [address] [place] [id number] PCP - General 08/27/21
--- OUTSIDE RECORDS SUMMARY | 2024-04-14 15:11 | XMS_ITS | Referral Summary ---
Author Organization [place] [address] [address] [address] Care Team Providers Care Truck Cleaner Name Role Phone Sandi Alfaro Primary Care Provider + Encounters Date Type Department Care Team Description 04/11/[address] [place] [phone] Fernando Modi MD NM stress test instructions 04/04/2024 1:00 PM COMFORT STATION ATTENDANT Ancillary Procedure [address] [place] [phone] Coronary artery disease of pauma artery of pauma heart with stable angina pectoris (HCC) 03/29/[address] [place] [phone] Martine Gibson NP 03/28/2024 9:00 AM COMFORT STATION ATTENDANT Office Visit [address] [place] [phone] Martine Gibson NP Coronary artery disease of pauma artery of pauma heart with stable angina pectoris (HCC) (Primary Dx); CVA, old, hemiparesis (CMS/HCC) (HCC); Hypertension associated with diabetes (HCC); Recently quit using tobacco 03/24/[address] [place] [phone] Fernando Modi MD Chest Pain 01/18/2024 Orders Only [address] [place] [phone] ProviderStuart MD 01/18/2024 9:00 AM COMFORT STATION ATTENDANT Office Visit [facility] Cardiology [address] [facility] [address] [facility] [address] [place] [phone] Fernando Modi MD Coronary artery disease of pauma artery of pauma heart with stable angina pectoris (HCC) (Primary [...] 24 hr tabletIndicatio ns:Coronary artery disease of pauma artery of pauma heart with stable angina pectoris (HCC) TAKE [...] Cryptogenic Stroke. DOI 10/12/[address] Willoughby. [facility] remote monitoring. TIA (transient ischemic attack) 10/06/2017 S/P coronary artery stent placement 12/17/2016 Morbid obesity with BMI of 45.0-49.9, adult ([facility]) 08/13/2016 Mixed anxiety depressive disorder 05/01/2015 Overview (06/07/2016): Anxiety and depression Coronary artery disease of n ative artery of pauma heart with stable angina pectoris 02/20/2015 Overview (06/07/2016): Coronary artery disease involving pauma coronary artery of pauma heart with other form of angina pectoris CVA, old, hemiparesis ([facility]) 02/20/2015 Overview (06/07/2016): CVA, old, hemiparesis Mixed diabetic hyperlipidemi a associated with type 2 diabetes mellitus ([facility]) 02/20/2015 Overview (06/07/2016): DM type 2 with [...] on file Legal Sex Male 3:15 AM COMFORT STATION ATTENDANT Gender Identity Male 09/03/2018 6:22 AM CDT Sexual Orientation Straight 09/03/2018 6: 22 AM CDT Last Filed Vital Signs Vital Sign Reading Time Taken Comments Blood Pressure 132/72 03/28/2024 9:10 AM COMFORT STATION ATTENDANT Pulse 82 01/18/2024 8:53 AM COMFORT STATION ATTENDANT Temperature - - Respiratory Rate - - Oxygen Saturation 96% 03/28/2024 9:10 AM COMFORT STATION ATTENDANT Inhaled Oxygen Concentration - - Weight 137.4 kg (303 lb) 03/28/2024 9:10 AM COMFORT STATION ATTENDANT Height 182.9 cm (6') 03/28/2024 9:10 AM COMFORT STATION ATTENDANT Body Mass Index 41.09 03/28/2024 9:10 AM COMFORT STATION ATTENDANT Plan of Treatment Not on file Procedures Procedure Name Priority Date/Time Associated Diagnosis Comments TRANSTHORACIC ECHO (TTE) COMPLETE W DOPPLER/CF W CONTRAST Routine 04/04/2024 1:37 PM COMFORT STATION ATTENDANT Coronary artery disease of pauma artery of pauma heart with stable angina pectoris (HCC) LIPID PANEL Routine 10/20/2023 from Last 3 Months or Most Recently Relevant to Health Maintenance Results * TRANSTHORACIC ECHO (TTE) COMPLETE W DOPPLER/CF W CONTRAST (04/04/2024 1:37 PM COMFORT STATION ATTENDANT) LV EF 75 % CONS SCIMAGE Anatomical Region Laterality Modality Ultrasound 04/04/2024 12:5 7 PM COMFORT STATION ATTENDANT Narrative 04/04/2024 3:50 PM COMFORT STATION ATTENDANT [facility] Medical Group Cardiology [address] [facility] [address] [address] [address] [facility] [address], [place] [address] P:[phone] P:[phone] Echocardiographic Report Patient Name: VINI HALEYTomas : 1960 Study Date: 04/04/2024 12:57:00 PM Gender: M Tech: Location: [place] Ref Provider: MARTINE GIBSON Height(Cm): 183 BSA: 2.64 Weight(Kg): 137.4 Heart Rate: 79 BP: 132 / 72 Quality: Definity contrast agent used to enhance endocardial border definition Order Provider: MARTINE GIBSON PROCEDURES: Echocardiographic Report: Transthoracic echocardiogram with complete 2D, M-Mode, color Doppler examination and Definity contrast. INDICATIONS: Coronary Artery Disease, Shortness of breath, and I25.118 Atherosclerotic heart disease of pauma coronary artery with other forms of angina [...] FINDINGS: Interpretation Site: Exam was interpreted at [facility]. Left Ventricle: Normal left ventricular size. Definity [...] views. Electronically Signed By: Todd Kwan MD, [facility] 04/04/2024 3:49:55 PM COMFORT STATION ATTENDANT Procedure Note Todd Kwan MD - 04/04/2024 [facility] Medical Group Cardiology [address] [facility] [address], [place] [address] [address] [facility] [address], [address], [place] [address] P:[phone] P:[phone] Echocardiographic Report Patient Name: VINI HALEY B : 1960 Study Date: 04/04/2024 12:57:00 PM Gender: M Tech: Location: [facility] Provider: MARTINE GIBSON Height(Cm): 183 BSA: 2.64 Weight(Kg): 137.4 Heart Rate: 79 BP: 132 / 72 Quality: Definity contrast agent used to enhance endocardial borderdefinition Order Provider: MARTINE GIBSON PROCEDURES: Echocardiographic Report: Transthoracic echocardiogram with complete 2D, M-Mode, color Dopplerexamination and Definity contrast. INDICATIONS: Coronary Artery Disease, Shortness of breath, and I25.118 Atheroscleroticheart disease of pauma coronary artery with other forms of angina [...] FINDINGS: Interpretation Site: Exam was interpreted at [facility]. Left Ventricle: Normal left ventricular size. Definity [...] views. Electronically Signed By: Todd Kwan MD, [facility] 04/04/2024 3:49:55 PM COMFORT STATION ATTENDANT Martine Gibson NP CV ECHO PROCEDURES Final Result * (ABNORMAL) Lipid panel (10/20/2023) SCRIBED Cholesterol, Total 87 < - 200 EXTERNAL LAB SCRIBED HDL 24 > - 40 EXTERNAL LAB SCRIBED LDL 20 < - 100 EXTERNAL LAB SCRIBED Triglycerides 213(A) < - 150 EXTERNAL LAB Blood 10/20/2023 Historical Provider LAB BLOOD ORDERABLES Elida l Result EXTERNAL LAB from Last 3 Months or Most Recently Relevant to Health Maintenance Insurance MEDICARE [facility] MEDICARE MEDICARE [facility] MEDICARE Care Teams Truck Cleaner Relationship Specialty Start Date End Date Sandi Alfaro PA PCP - General Nurse Practitioner 08/21/17
--- OUTSIDE RECORDS SUMMARY | 2024-04-14 15:11 | XMS_ITS | Encounter Summary ---
Author Organization [facility] Address [address] [place] [address] Care Team Providers Care Buffer Operator Name Role Phone Sandi Alfaro Primary Care Provider [phone] Sandi Alfaro Unavailable [phone] Cheryl Huston RN Unavailable Unavailable Encounter Details Date Type Department Care Team (Latest Contact Info) Description 10/26/2017 Abstract [facility] , [facility] [...] Sex Assigned at Male 03/31/2024 8:58 AM LABORER/KEY MAN Legal Sex Male 8:01 PM CDT Gender Identity Not on file Sexual Orientation Not on file documented as of this encounter Plan of Treatment Upcoming Encounters Date Type Department Care Team (Late st Contact Info) Description 05/05/2024 8:00 AM LABORER/KEY MAN [facility] Family & Internal Medicine [facility] [address] [place] [address] Sandi Alfaro APNP [address] [place] [address] documented as of this encounter Visit Diagnoses Not on filedocumented in this encounter Additional Health Concerns Infection Onset Date Last Indicated Resolved Time COVID-19 Rule Out 10/24/2019 11/25/2019 11/27/2019 1:56 AM CDT COVID-19 Rule Out 05/03/2020 05/03/2020 05/03/2020 3:25 PM LABORER/KEY MAN COVID-19 Rule Out 05/12/2023 05/12/2023 05/13/2023 12:01 AM CDT Influenza - Seasonal 05/14/2023 05/14/2023 024 12:32 AM CDT documented as of this encounter Care Teams Buffer Operator Relationship Specialty Start Date End Date Sandi Alfaro APNP Family & Internal Medicine [address] [address] PCP - General ADVANCED PRACTICE RECESSING MACHINE OPERATOR 04/28/17 Sandi Alfaro APNP [address] [place] [address] PCP - Med Group - MSSP Attributed Provider 03/02/15 03/01/22 Cheryl Huston, soap press feeder (Ambulatory) REGISTERED NURSE 03/23/19 documented as of this encounter
--- OUTSIDE RECORDS SUMMARY | 2024-04-14 15:11 | XMS_ITS | Encounter Summary ---
Author Organization [facility] Address [address] [place] [address] Care Team Providers Care Information Systems Security Analyst Name Role Phone Sandi Alfaro Primary Care Provider [phone] Cheryl Huston RN Unavailable Unavailable Encounter Details Date Type Department Care Team (Late Contact Info) Description 08/27/2022 StackBlazeharGamemaster Message Enc [address] [id number] [place], [facility] Provider Air Quality Message Social [...] Sex Assigned at Male 03/31/2024 8:58 AM HORSE RACING MANAGER Legal Sex Male 8:01 PM CDT [...] (Late Contact Info) Description 05/05/2024 8:00 AM HORSE RACING MANAGER Office Visit [facility] Family & Internal Medicine [address] [phone] Sandi Alfaro APNP [address] [place] [address] documented as of this encounter Visit Diagnoses Not on filedocumented in this encounter Additional Health Concerns Infection Onset Date Last Indicated Resolved Time COVID-19 Rule Out 05/12/2023 05/12/2023 05/13/2023 12:01 AM CDT Influenza - Seasonal 05/14/2023 05/14/2023 024 12:32 AM CDT Assessment Noted Time PHQ-9 Depression Total Score: 13 023 10:48 AM CDT documented as of this encounter Care Teams Information Systems Security Analyst Relationship Specialty Start Date End Date Sandi Alfaro APNP Family & Internal Medicine [address] [address] PCP - General ADVANCED PRACTICE CLASSROOM TECHNOLOGY COACH 04/28/17 Cheryl Huston, construction equipment operator (Ambulatory) REGISTERED NURSE 03/23/19 documented as of this encounter
--- OUTSIDE RECORDS SUMMARY | 2024-04-14 15:11 | XMS_ITS | Encounter Summary ---
Author Organization [facility] Address [address] [place] [address] Care Team Providers Care Aemt Name Role Phone Sandi Alfaro Primary Care Provider + Reason for Visit * Reason Onset Date Comments NM stress test instructions 04/11/2024 Encounter Details Date Type Department Care Team (Late st Contact Info) Description 04/11/2024 Telephone [facility] Cardiology [address] [facility] [address] [place] [address] Fernando Modi MD [address] [facility] [address] [place] [address] NM stress test instructions Social History Tobacco Use Types Packs/Day Years Used Date Smoking Tobacco: Some Days Cigarettes 0.3 15 Smokeless Tobacco: Never Alcohol Use Standard Drinks/Week Comments Yes 0 (1 standard drink = 0.6 oz pur e alcohol) Sex and Gender Information Value Date Recorded Sex Assigned at Not on file Legal Sex Male 3:15 AM WASTEWATER TREATMENT PLANT OPERATOR Gender Identity Male 09/03/2018 6:22 AM CDT Sexual Orientation Straight 09/03/2018 6: 22 AM CDT documented as of this encounter Miscellaneous Notes * Telephone Encounter - Harini Mann RN - 04/11/2024 10:04 AM WASTEWATER TREATMENT PLANT OPERATOR Instructions for upcoming stress test reviewed with pt. Pt verbalizes understanding. EWATER TREATMENT PLANT OPERATOR * Telephone Encounter - Ilene Soni - 04/11/2024 9:58 AM CST Patient requesting a call back to go over NM stress test instructions. Please advise. Thank you. Contact [phone] EWATER TREATMENT PLANT OPERATOR documented in this encounter Plan of Treatment Not on file documented as of this encounter Visit Diagnoses Not on filedocumented in this encounter Care Teams Aemt Relationship Specialty Start Date End Date Sandi Alfaro PA PCP - General Nurse Practitioner 08/21/17 documented as of this encounter
--- OUTSIDE RECORDS SUMMARY | 2024-04-14 15:11 | XMS_ITS | Encounter Summary ---
Author Organization [facility] Address [address] [place] [address] Care Team Providers Care Chemistry Quality Control Technician Name Role Phone Sandi Alfaro Primary Care Provider [phone] Cheryl Huston RN Unavailable Unavailable Encounter Details Date Type Department Care Team (Late st Contact Info) Description 08/18/2023 Plug Apps Message Enc [facility] Medical Group Multispecialty Care - [facility] [address] [facility], [address] [place] [id number] [employer], [facility] Provider Results Social History Tobacco Use Types Packs/Day Years Used Date Smoking Tobacco: Every Day Cigarettes 0.3 40 Smokeless Tobacco: Never Comments:currently smoking 2 -3 cigarettes a day Alcohol Use Standard Drinks/Week Comments Yes 0 (1 standard drink = 0.6 oz pur e alcohol) very rarely 6 beers/year [facility] Utilities Answer Date Recorded In the past 12 months has [facility] [employer], gas, oil, or water [employer] threatened to shut off services in your [...] How often do you attend chur or sabianist services? Never 05/12/2023 Do you belong to any clubs o r organizations such as mu-ism groups, unions, fraternal or athletic groups, or [...] Recorded Patient Health Questionnaire-2 Score 0 05/21/2023 [facility] - Occupational [...] place to sleep or slept in a prison (including now)? No 05/12/2023 Sex and Gender Information Value Date Recorded Sex Assigned at Male 03/31/2024 8:58 AM CIGARETTE PACKAGE EXAMINER Legal Sex Male 8:01 PM CDT Gender [...] st Contact Info) Description 05/05/2024 8:00 AM CIGARETTE PACKAGE EXAMINER Office Visit [facility] Group Family & Internal Medicine [address] [address] Sandi Alfaro APNP [address] [place] [address] documented as of this encounter Visit Diagnoses Not on filedocumented in this encounter Additional Health Concerns Assessment Noted Time PHQ-9 Depression Total Score: 0 05/21/19 24 11:21 AM CDT documented as of this encounter Care Teams Chemistry Quality Control Technician Relationship Specialty Start Date End Date Sandi Alfaro APNP Family & Internal Medicine [address] [address] PCP - General ADVANCED PRACTICE JACQUARD LOOM WEAVER 04/28/17 Cheryl Huston contracts director (Ambulatory) REGISTERED NURSE 03/23/19 documented as of this encounter
--- OUTSIDE RECORDS SUMMARY | 2024-04-14 15:11 | XMS_ITS | Encounter Summary ---
Author Organization [facility] Address [address] [place] [address] Care Team Providers Care Tool Machine Shop Supervisor Name Role Phone Sandi Alfaro Primary Care Provider [phone] Sandi Alfaro Unavailable [phone] Cheryl Huston RN Unavailable Unavailable Encounter Details Date Type Department Care Team (Late st Contact Info) Description 05/13/2021 [employer] Message Enc [facility] Medical Group Multispecialty Care - [facility] [address] [facility] [place] [address] [place], [facility] Provider CPAP Social History Tobacco Use Types Packs/Day Years Used Date Smoking Tobacco: Every Day Cigarettes 0.3 40 Smokeless Tobacco: Never Comments:want to quit but gary s alot of stress right [id number] smoking about 3-4 cigaretts a day Alcohol Use Standard Drinks/Week Comments Yes 0 (1 standard drink = 0.6 oz pur e alcohol) very rarely 6 beers/year PHQ-2 Answer Date Recorded PHQ-2 Score - If the patient scores above 3, please move on to questions 3-9 4 01/23/2021 Sex and Gender Information Value Date Recorded Sex Assigned at Male 03/31/2024 8:58 AM INSULATION TECHNICIAN Legal Sex Male 8:01 PM CDT Gender [...] st Contact Info) Description 05/05/2024 8:00 AM INSULATION TECHNICIAN Office Visit [facility] Medical Group Family & Internal Medicine [address] [phone] Sandi Alfaro APNP [address] [place] [address] documented as of this encounter Visit Diagnoses Not on filedocumented in this encounter Additional Health Concerns Infection Onset Date Last Indicated Resolved Time COVID-19 Rule Out 05/12/2023 05/12/2023 05/13/2023 12:01 AM CDT Influenza - Seasonal 05/14/2023 05/14/2023 024 12:32 AM CDT Assessment Noted Time PHQ-9 Depression Total Score: 7 01/24/20 21 1:37 PM INSULATION TECHNICIAN documented as of this encounter Care Teams Tool Machine Shop Supervisor Relationship Specialty Start Date End Date Sandi Alfaro APNP Family & Internal Medicine [address] [address] PCP - General ADVANCED PRACTICE RETAIL REPRESENTATIVE 04/28/17 Sandi Alfaro APNP [address] [place] [address] PCP - Med Group - [facility] Attributed Provider 03/02/15 03/01/22 Cheryl Huston, yarding supervisor (Ambulatory) REGISTERED NURSE 03/23/19 documented as of this encounter
--- OUTSIDE RECORDS SUMMARY | 2024-04-14 15:11 | XMS_ITS | Clinical Summary ---
Author Organization [facility] Address [address] [place] [address] Care Team Providers Care Drill Sharpener Name Role Phone Sandi Alfaro Primary Care Provider [phone] Cheryl Huston RN Unavailable Unavailable Allergies No [...] complication, without long-term current use of insulin ([facility]) USE 1 STRIP BY OTHER ROUTE 2 (TWO) TIMES A DAY. 100 strip 03/24/19 24 Active tamsulosin (FLOMAX) 0.4 MG Cap Take 1 capsule (0.4 mg total) by mouth nightly at bedtime. 04/21/19 24 Active Fluticasone-Umecl idin-Vilant (TRELEGY ELLIPTA) 200-62.5-25 MCG/ACT AEROSOL POWDER, BREATH ACTIVATEDIndicati ons:Mild emphysema ([facility] HHS/HCC) Inhale 1 puff into the lungs [...] ons:Dyslipidemia associated with type 2 diabetes mellitus ([facility] HHS/HCC) Inject 3 mg into the skin once a week. 6 mL 11 08/26/19 24 Active fluticasone-salme terol (ADVAIR HFA) 115-21 MCG/ACT inhalerIndication s:Mild emphysema ([facility] HHS/HCC) Inhale 2 puffs into the lungs 2 (two) times daily. 12 g 3 11/27/19 24 Active doxazosin (CARDURA) 2 MG tabletIndications :Hypertensive heart disease with congestive heart failure, unspecified heart failure type ([facility] HHS/HCC) TAKE 1 TABLET BY MOUTH EVERYDAY AT BEDTIME 90 tablet 01/18/20 24 Active metFORMIN (GLUCOPHAGE) 1000 MG tabletIndications :Diabetic foot ([facility] HHS/HCC) TAKE 1 TABLET BY MOUTH TWICE A [...] complication, without long-term current use of insulin ([facility]) Take 1 tablet (10 mg total) by mouth daily. 90 tablet 02/16/20 24 Active ondansetron (ZOFRAN-ODT) 4 MG disintegrating tabletIndications :Vertigo Take 1 tablet (4 mg total) by mouth every 8 (eight) hours as needed for Nausea. 30 tablet 03/22/19 25 Active losartan (COZAAR) 100 MG tabletIndications :Hypertensive heart disease with congestive heart failure, unspecified heart failure type ([facility]),Primary hypertension TAKE 1 TABLET BY MOUTH EVERY [...] WHEEZING FOR 30 DAYS 02/25/20 24 Active buPROPion SR (WELLBUTRIN SR) 150 MG 12 hr tabletIndications :Mixed anxiety depressive disorder TAKE 1 TABLET BY MOUTH TWICE A DAY 180 tablet 1 04/14/19 25 Active amLODIPine (NORVASC) 10 MG tabletIndications :Primary hypertension TAKE 1 TABLET BY MOUTH EVERY DAY 90 tablet 1 04/14/19 25 Active buPROPion SR (WELLBUTRIN SR) 150 MG 12 hr tabletIndications :Mixed anxiety depressive disorder TAKE 1 TABLET BY MOUTH TWICE A DAY 180 tablet 01/18/20 24 2024 Discontinued amLODIPine (NORVASC) 10 MG tabletIndications :Primary hypertension TAKE 1 TABLET BY MOUTH EVERY DAY 90 tablet 01/18/20 24 2024 Discontinued ondansetron (ZOFRAN-ODT) 4 MG disintegrating tabletIndications :Vertigo Take 1 tablet (4 mg total) by mouth every 8 (eight) hours as needed for Nausea. 20 tablet 02/05/20 24 2024 Discontinued(R eorder) losartan (COZAAR) 100 MG tabletIndications :Hypertensive heart disease with congestive heart failure, unspecified heart failure type ([facility]),Primary hypertension Take 1 tablet (100 mg total) [...] 03/31/2024 Polyneuropathy associated wi th underlying disease ([facility]) 12/16/2023 Morbid (severe) obesity due to excess calories ([facility]) 05/15/2022 Body mass index (BMI) 40.0-44.9, adult ([facility]) 05/15/2022 Acute hyperglycemia 05/17/2021 Anxiety 05/17/2021 Arthritis 05/17/2021 Atypical syncope 05/17/2021 Calculus of left ureter 05/17/2021 Eczema 05/17/2021 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/17/2021 [facility] current use of anticoagulant therapy 0 05/17/2021 Peripheral neuropathy 05/17/2021 Rectal polyp 05/17/2021 Swelling of left lower extremity 05/17/2021 Tear of medial meniscus of knee 05/17/2021 Tobacco abuse 05/17/2021 Pain due to ureteral stent 05/17/2021 Cigarette nicotine dependence without complicati on 03/14/2019 Seasonal allergic rhinitis due to pollen 09/20/2 019 Chronic heart failure with p reserved ejection fraction ([facility]) 11/12/2018 Arthralgia of left hand 11/02/2018 Enchondroma of bone of hand, left 11/02/2018 Carpal tunnel syndrome on left 08/26/2018 Cryptogenic stroke ([facility]) 07/06/2018 Skin lesion of right arm 06/28/2018 Weakness 05/26/2018 Status post placement of implantable loop record er 10/13/2017 Overview (01/13/2018): Overview: [employer] Mobile Reveal Loop Recorder. Dx; Cryptogenic Stroke. DOI 10/12/[address] Willoughby. [employer] remote monitoring. TIA (transient ischemic attack) 10/06/2017 Mild emphysema ([facility]) 08/28/2017 Hepatic steatosis 08/28/2017 Memory loss 05/18/2017 Chest pain 04/30/2017 S/P coronary artery stent placement 12/17/2016 Hemorrhoids 10/03/2016 Hearing loss 08/01/2016 Decreased hearing 07/17/2016 Chronic nausea 03/27/2016 Diabetic foot ([facility]) 03/10/2016 Abdominal wall bulge 03/10/2016 CHF (congestive heart failure) ([facility]) 01/14/2016 Peripheral edema 12/19/2015 Tinnitus 11/08/2015 History of kidney stones 10/03/2015 Insomnia 05/07/2015 Chronic cough 03/20/2015 Hypertensive heart disease w ith congestive heart failure ([facility]) 02/20/2015 Overview (01/13/2018): Overview: Hypertensive heart disease with diastolic heart failure Coronary artery disease of n ative artery of [place] heart with stable angina pectoris 02/20/2015 Overview (01/13/2018): Overview: Coronary artery disease involving [place] coronary artery of [place] heart with other form of angina pectoris CVA, old, hemiparesis ([facility]) 02/21/20 15 Overview (01/13/2018): Overview: CVA, old, hemiparesis Dyslipidemia associated with type 2 diabetes mellitus ([facility]) 02/20/2015 Overview (01/13/2018): Overview: DM (diabetes mellitus) Overview: DM type 2 with diabetic dyslipidemia Mixed diabetic hyperlipidemi a associated with type 2 diabetes mellitus ([facility]) 02/20/2015 Overview (05/17/2021): DM type 2 with [...] Overview: HTN (hypertension), benign Cerebrovascular accident (CVA) ([facility]) 08/23/2013 Hyperlipidemia 08/23/2013 Resolved Problems Problem Noted Date Diagnosed Date Resolved Date Left nephrolithiasis 10/07/2017 018 Encounter for screening for lung cancer 04/09/2017 06/28/2018 BMI 45.0-49.9, adult ([facility]) 10/03/2016 05/15/2022 Morbid obesity ([facility]) 08/13/2016 05/15/2022 Encounter for preventive health examination 08/23/2013 06/28/2018 Encounters Date Type Department Care Team Description 04/11/2024 Telephone [facility] Family & Internal Medicine [address] [phone] Sandi Alfaro APNP Results 03/31/2024 8:40 AM RUBY ON RAILS DEVELOPER Office Visit [facility] Internal [address] [phone] Sandi Alfaro, APNP ER F/U 03/31/2024 Travel 03/29/2024 Scan [facility] Scanned, Doc [facility] Image (SCAN) 03/28/2024 Scan [facility] Scanned, Doc [facility] 03/23/2024 Scan [facility] SRV[facility] Scanned, [facility] Lab (SCAN) 03/23/2024 Scan [facility] Scanned, [facility] Lab (SCAN) 03/22/[address] [phone] Sandi Alfaro APNP Medication Request; Advice 03/18/2024 Scan [facility] Scanned, [facility] Lab (SCAN) 03/18/2024 Scan [facility] Scanned, Doc [facility] Lab (SCAN); CT (SCAN); Image (SCAN) 02/26/2024 Telephone [facility] [address] [phone] Sandi Alfaro APNP Medication Request 02/22/2024 Scan [facility] Scanned, Doc [facility] Group 02/10/[address] [address] Sandi Alfaro APNP Lab Results 02/05/2024 9:20 AM RUBY ON RAILS DEVELOPER Office Visit [facility] [address] [phone] Sandi Alfaro, APNP Mass (Follow-up on left arm mass) 02/05/2024 Travel 01/29/2024 Scan [facility] Scanned, Doc [facility] Image (SCAN); CT (SCAN) 01/29/[address] [phone] Sandi Alfaro APNP Results 01/28/2024 Scan [facility] Scanned, Doc [facility] 01/22/2024 Scan [facility] Scanned, Doc [facility] Ultrasound (SCAN) 01/21/2024 Scan [facility] Scanned, Doc Med Group 01/19/2024 10:00 AM RUBY ON RAILS DEVELOPER Office Visit [facility] Family & Internal Medicine [address] [phone] Sandi Alfaro APNP Mass (Left arm) 01/19/2024 Scan MG [...] pur e alcohol) very rarely 6 beers/year [facility] Utilities Answer Date Recorded In the past 12 months has th e electric, gas, oil, or water company [...] often do you attend chur ch or adventism services? Never 05/12/2023 Do you belong to any clubs o r organizations such as congregational groups, unions, fraternal or athletic groups, or [...] Recorded Patient Health Questionnaire-2 Score 0 03/31/2024 [facility] - [...] Sex Assigned at Male 03/31/2024 8:58 AM RUBY ON RAILS DEVELOPER Legal Sex Male 8:01 PM CDT Gender Identity Not on file Sexual Orientation Not on file Last Filed Vital Signs Vital Sign Reading Time Taken Comments Blood Pressure 128/72 03/31/2024 8:56 AM RUBY ON RAILS DEVELOPER Pulse 81 03/31/2024 8:56 AM RUBY ON RAILS DEVELOPER Temperature 36.3 C (97.4 F) 03/31/2024 8:56 AM RUBY ON RAILS DEVELOPER Respiratory Rate 18 03/31/2024 8:56 AM RUBY ON RAILS DEVELOPER Oxygen Saturation 98% 03/31/2024 8:56 AM RUBY ON RAILS DEVELOPER Inhaled Oxygen Concentration - - Weight 139 kg (306 lb 6.4 oz) 03/31/2024 8:56 AM RUBY ON RAILS DEVELOPER Height 182.9 cm (6') 03/31/2024 8:56 AM RUBY ON RAILS DEVELOPER Body Mass Index 41.56 03/31/2024 8:56 AM RUBY ON RAILS DEVELOPER Plan of Treatment Upcoming Encounters Date Type Department Care Team (Late st Contact Info) Description 05/05/2024 8:00 AM RUBY ON RAILS DEVELOPER Office [facility] Family & Internal Medicine - [address] [phone] Sandi Alfaro APNP [address] [place] [address] [phone] Health Maintenance Due Date Last Done Comments [...] 12/01, 12/31/2021, Additional history exists PHQ-2 (Physician [place]) Completed 03/31/2024 Meningococcal B Vaccine Aged Out [...] VENOUS BLOOD VENIPUNCTURE Routine 03/31/2024 9:56 AM RUBY ON RAILS DEVELOPER Body mass index (BMI) 40.0-44.9, adult ([facility] HHS/HCC) Mixed diabetic hyperlipidemia associated with type 2 diabetes mellitus ([facility] HHS/HCC) Prostate cancer screening Primary hypertension PROSTATE SPECIFIC ANTIGEN,SCREENING Routine 03/31/2024 9:55 AM RUBY ON RAILS DEVELOPER Prostate cancer screening CBC W/DIFF AUTOMATED Routine 03/31/2024 9:55 AM RUBY ON RAILS DEVELOPER Thrombocytopenia (CMS/HCC) COMPREHENSIVE METABOLIC PANEL Routine 03/31/2024 9:55 AM RUBY ON RAILS DEVELOPER Body mass index (BMI) 40.0-44.9, adult ([facility] HHS/HCC) Mixed diabetic hyperlipidemia associated with type 2 diabetes mellitus ([facility] HHS/HCC) Primary hypertension MG/PCCL UDS W CONF Routine 03/31/2024 8: 59 AM RUBY ON RAILS DEVELOPER Long-term use of high-risk medication IMAGE GENERIC [...] URINE RANDOM W/CREATININE Routine 02/05/2024 11:04 AM RUBY ON RAILS DEVELOPER Mixed diabetic hyperlipidemia associated with type 2 diabetes mellitus (CMS/HCC HHS/HCC) COLLECT.CAPILLARY (FNGR,HEEL,EAR) Routine 02/05/2024 10:00 AM RUBY ON RAILS DEVELOPER Type 2 diabetes mellitus without complication, without [...] * PROSTATE SPECIFIC ANTIGEN,SCREENING (03/31/2024 9:55 AM RUBY ON RAILS DEVELOPER) PSA 2.27 <4.00 NG/ML 03/31/2024 3:04 PM RUBY ON RAILS DEVELOPER [facility] Comment: ASSAY PERFORMED BY [employer] IMMUNOASSAY METHODOLOGY USING SIEMENS DIMENSION REAGENT. PATIENT RESULTS DETERMINED BY ASSAYS FROM DIFFERENT MANUFACTURERS AND/OR BY DIFFERENT METHODS MAY NOT BE COMPARABLE. 03/31/2024 9:55 AM RUBY ON RAILS DEVELOPER Sandi LYNCH LABORATORY Final Resul t [facility] [address] [place] [address], * (ABNORMAL) COMPREHENSIVE METABOLIC PANEL (03/31/2024 9:55 AM RUBY ON RAILS DEVELOPER) SODIUM S/P/B 139 136 - 145 MMOL/L 03/31/2024 3:29 PM [facility] POTASSIUM S/P/B 4.2 3.5 - 5.1 MMOL/L 03/31/2024 3:29 PM [facility] CHLORIDE S/P/B 103 98 - 107 MMOL/L 03/31/2024 3:29 PM [facility] CO2 25.2 21 - 32 MMOL/L 03/31/2024 3:29 PM [facility] GLUCOSE 127(H) 70 - 99 MG/DL 03/31/2024 3:29 PM [facility] BUN 12 7 - 18 MG/DL 03/31/2024 3:29 PM [facility] CREATININE S/P/B 1.11 0.70 - 1.30 MG/DL 03/31/2024 3:29 PM [facility] CALCIUM S/P/B 9.1 8.4 - 10.5 MG/DL 03/31/2024 3:29 PM [facility] BILIRUBIN TOTAL S/P/B 0.6 0.2 - 1.0 MG/DL 03/31/2024 3:29 PM [facility] ALKALINE PHOSPHATASE S/P/B 76 45 - 115 U/L 03/31/2024 3:29 PM [facility] AST 28 15 - 37 U/L 03/31/2024 3:29 PM [facility] ALT 46 16 - 63 U/L 03/31/2024 3:29 PM [facility] TOTAL PROTEIN S/P/B 6.9 6.4 - 8.2 G/DL 03/31/2024 3:29 PM [facility] ALBUMIN S/P/B 3.8 3.4 - 5.0 G/DL 03/31/2024 3:29 PM [facility] ANION GAP 10.8 5 - 15 MMOL/L 03/31/2024 3:29 PM [facility] Comment:REFERENCE RANGE NOT ESTABLISHED OSMOLALITY (CALC) 289 MOSM/KG 025 3:29 PM [facility] Comment:REFERENCE RANGE NOT ESTABLISHED GFR ESTIMATE 74(L) >90 ML/MIN/1. 73 M2 03/31/2024 3:29 PM [facility] GFR NOTES GFR REFERENCE S: 03/31/2024 3:29 PM [facility] Comment: THE ESTIMATED GFR IS CALCULATED USING [...] FAILURE: <15 ml/min/1.73 m2 03/31/2024 9:55 AM RUBY ON RAILS DEVELOPER us Sandi Alfaro KRISTYNP LABORATORY Final Resul t [facility] [place] [address] [facility] [place] [address], * (ABNORMAL) CBC W/DIFF AUTOMATED (03/31/2024 9:55 AM RUBY ON RAILS DEVELOPER) WBC 7.37 4.00 - 10.80 x10'3/uL 03/31/2024 3:14 PM RUBY ON RAILS DEVELOPER [facility] RBC 4.34(L) 4.50 - 6.10 x10'6/uL 03/31/2024 3:14 PM [facility] HGB 13.2 13.0 - 18.0 G/DL 03/31/2024 3:14 PM RUBY ON RAILS DEVELOPER [facility] HCT 38.9 37.0 - 52.0 % 03/31/2024 3:14 PM RUBY ON RAILS DEVELOPER [facility] MCV 89.6 78.0 - 100.0 FL 03/31/2024 3:14 PM RUBY ON RAILS DEVELOPER [facility] MCH 30.4 27.0 - 31.0 PG 03/31/2024 3:14 PM RUBY ON RAILS DEVELOPER [facility] MCHC 33.9 33.0 - 36.0 G/DL 03/31/2024 3:14 PM RUBY ON RAILS DEVELOPER [facility] RDW 14.0 11.5 - 14.5 % 03/31/2024 3:14 PM RUBY ON RAILS DEVELOPER [facility] PLT 140(L) 150 - 350 x10'3/uL 03/31/2024 3:14 PM [facility] MPV 12.2(H) 7.4 - 10.4 FL 03/31/2024 3:14 PM [facility] DIFFERENTIAL TYPE AUTOMATED DIFFERENTIAL 03/31/2024 3:15 PM [facility] NEUTROPHILS % 73.8 % 03/31/2024 3:15 PM RUBY ON RAILS DEVELOPER [facility] LYMPHOCYTES % 14.5 % 03/31/2024 3:15 PM RUBY ON RAILS DEVELOPER [facility] MONOCYTES % 9.0 % 03/31/2024 3:15 PM RUBY ON RAILS DEVELOPER [facility] EOSINOPHILS % 2.0 % 03/31/2024 3:15 PM RUBY ON RAILS DEVELOPER [facility] BASOPHILS % 0.3 % 03/31/2024 3:15 PM RUBY ON RAILS DEVELOPER [facility] IMMATURE GRANS % 0.4 % 03/31/2024 3:15 PM RUBY ON RAILS DEVELOPER [facility] ABS. NEUTROPHILS 5.44 1.60 - 8.30 x10'3/uL 03/31/2024 3:15 PM RUBY ON RAILS DEVELOPER [facility] ABS. LYMPHOCYTES 1.07 0.80 - 4.70 x10'3/uL 03/31/2024 3:15 PM RUBY ON RAILS DEVELOPER [facility] ABS. MONOCYTES 0.66 0.00 - 1.50 x10'3/uL 03/31/2024 3:15 PM RUBY ON RAILS DEVELOPER [facility] ABS. EOSINOPHILS 0.15 0.00 - 0.40 x10'3/uL 03/31/2024 3:15 PM RUBY ON RAILS DEVELOPER [facility] ABS. BASOPHILS 0.02 0.00 - 0.20 x10'3/uL 03/31/2024 3:15 PM RUBY ON RAILS DEVELOPER [facility] ABS. IMMATURE GRANULOCYTES 0.03 0.00 - 0.03 x10'3/uL 03/31/2024 3:15 PM RUBY ON RAILS DEVELOPER [facility] 03/31/2024 9:55 AM RUBY ON RAILS DEVELOPER us Sandi LYNCH LABORATORY Final Resul t [facility] [address] [place] [address], * (ABNORMAL) MG/PCCL UDS W CONF (03/31/2024 8:59 AM RUBY ON RAILS DEVELOPER) RESULT SUMMARY [facility] Comment: Prescribed Prescribed Not Prescribed Consistent Inconsistent Inconsistent Hydrocodone Tramadol PRESCRIBED DRUG 1 (U) Hydrocodone [facility] PRESCRIBED DRUG 2 (U) Tramadol [facility] FENTANYL SCREEN (U) NEGATIVE <0.5 ng/mL [facility] MORPHINE (U) NEGATIVE <10 ng/mL [facility] DESMETHYLTRAMADOL (U) NEGATIVE <100 ng/mL [facility] DESMETHYLTRAMADOL MEDMATCH (U) INCONSISTENT(A ) [facility] TRAMADOL (U) NEGATIVE <100 ng/mL [facility] TRAMADOL (MEDMATCH) INCONSISTENT(A ) [facility] TRAMADOL COMMENTS [facility] Comment:See LDT Notes AMPHETAMINES PM NEGATIVE <500 ng/mL [facility] BARBITURATES PM (U) NEGATIVE <300 ng/mL [facility] BENZODIAZEPINES PM (U) NEGATIVE <100 ng/mL [facility] COCAINE METABOLITE PM (U) NEGATIVE <150 ng/mL [facility] MARIJUANA METABOLITE PM (U) NEGATIVE <20 ng/mL [facility] METHADONE PM (U) NEGATIVE <100 ng/mL [facility] OPIATES PM (U) NEGATIVE <100 ng/mL [facility] OPIATES PM MEDMATCH (U) INCONSISTENT(A ) [facility] NORHYDROCODONE PM MM (U) INCONSISTENT(A ) [facility] OXYCODONE PM (U) NEGATIVE <100 ng/mL [facility] CREATININE RANDOM (U) 78.0 > or = 20.0 mg/dL [facility] pH PM (U) 5.4 4.5 - 9.0 [facility] OXIDANT NEGATIVE <200 mcg/mL [facility] NOTE [facility] Comment: This drug testing is for medical treatment only. Analysis was performed as non-forensic testing and these results should be used only by healthcare providers to render diagnosis or treatment, or to monitor progress of medical conditions. LDT Notes: Confirmation tests were developed and their analytical performance characteristics have been determined by [employer]. It has not been cleared or approved by the FDA. This assay has been validated pursuant to the CLIA regulations and is used for clinical purposes. medMATCH(R) enables providers to identify if drug use is consistent or inconsistent with a corresponding prescribed medication(s) list. Healthcare Providers needing Interpretation assistance, please contact us at [phone] ( ) M-F, 8am to 10pm EST URINE SPECIMEN / Unknown 03/31/2024 8:59 AM RUBY ON RAILS DEVELOPER 03/31/2024 11:43 PM RUBY ON RAILS DEVELOPER Narrative Resulting Agency Comment Performing Organization Information: Site ID: [id number] Name: [facility] Address: [address] [place] [address] Director: [place] Site ID: [id number] Name: [facility] Address: [id number] [place] [address] Director: Velvet Juarez MD Sandi LYNCH URINE ORDERABLES Final Resu lt [facility] - RENATA MORAN [facility] [id number] [place] [address] [place] [address], [facility] [place] [address] [place] [address] * IMAGE GENERIC (03/29/2024) Only the most recent of4 resultswithin the time period is included. Anatomical Region Laterality Modality Other 03/29/2024 us [facility] Scanned SCANNING Final Resu lt * OUTSIDE LAB COVID-19 (03/23/2024) Only the most recent of2 resultswithin the time period is included. CORONAVIRUS SARS COV 2 PCR (RESP) NOT DETECTED NOT DETECTED [facility] ONBASE 03/23/2024 [facility] Group Scanned SCANNING Final Resu lt HS ONBASE * OUTSIDE PT/INR (SCAN ORDER) (03/23/2024) Only the most recent of2 resultswithin the time period is included. 03/23/2024 Result [facility] Group Scanned SCANNING Final Resu lt * OUTSIDE LAB (SCAN ORDER) (03/23/2024) Only the most recent of6 resultswithin the time period is included. 03/23/2024 Result [facility] [employer] [facility] Group Scanned SCANNING Final Resu lt * CT GENERIC (03/18/2024) Only the most recent of3 resultswithin the time period is included. Anatomical Region Laterality Modality Other 03/18/2024 Result [facility] Scanned SCANNING Final Resu lt * (ABNORMAL) ALBUMIN/CREATININE RATIO, RANDOM URINE (02/05/2024 11:04 AM RUBY ON RAILS DEVELOPER) MICROALBUMIN (U) 635.8(H) <20 MG/L 02/05/20 24 3:47 PM RUBY ON RAILS DEVELOPER [facility] CREATININE RANDOM (U) 87.3 MG/DL 02/05/2024 3:47 PM RUBY ON RAILS DEVELOPER -[facility] ALBUMIN/CREAT RATIO 728.3(H) <30 MG/G 02/05/2024 3:47 PM RUBY ON RAILS DEVELOPER [facility] [place] URINE SPECIMEN / Unknown 02/05/2024 11:04 AM RUBY ON RAILS DEVELOPER Result [facility] Sandi LYNCH URINE ORDERABLES Final Resu lt [facility] [address] [place] [address], * HEMOGLOBIN, GLYCOSYLATED (02/05/2024) HGB A1C 6.5 % [facility] 02/05/2024 Sandi LYNCH LABORATORY Final Resul t [facility] [address] [place] [address], [place] * ULTRASOUND GENERIC (SCAN ORDER) (01/22/2024) Anatomical Region Laterality Modality Other 01/22/2024 [facility] Scanned SCANNING Final Resu lt * (ABNORMAL) LIPID PANEL (05/13/2023 6:00 AM CDT) CHOLESTEROL 87 <200 MG/DL 05/13/2023 7:18 AM CDT [facility] TRIGLYCERIDES 213(H) <150 MG/DL 05/13/2023 7:18 AM CDT [facility] HDL 24(L) >40.0 MG/DL 05/13/2023 7:18 AM CDT [facility] LDL (CALCULATED) 20 <100 MG/DL 05/13/2023 7:18 AM CDT [facility] NON HDL CHOLESTEROL 63 <130 MG/DL 05/13/2023 7:18 AM CDT [facility] CHOL/HDL RATIO 3.6 0.0 - 4.5 05/13/2023 7:18 AM CDT [facility] VLDL CALCULATION 43 5 - 55 MG/DL 05/13/2023 7:18 AM CDT [facility] LIPID INTERPRETATION 05/13/2023 7:18 AM CDT [facility] Comment: [facility] REPORT RECOMMENDATIONS: [...] LABORATORY Final Re sult Performing Organization Address [facility] Co de Phone Number [facility] [address] [place] [address], [place] [phone] * DIABETIC RETINOPATHY EXAM (NEGATIVE) (04/20/2023) [facility] Scanned SCANNING Final Resu lt Performing Organization Address [facility] de Phone Number [facility] * HEPATITIS C ANTIBODY W/RFX [...] a test for HCV RNA (test code 21252) is suggested. For additional information please refer to http://education.[employer]/faq/MRM39z7 (This link is being provided for informational/ educational purposes only.) 06/28/2021 11:2 2 AM CDT 06/29/2021 10:18 AM CDT [facility] Final Resul t [facility] [address] [place] [phone] * CT CHEST WO CONT LOW DOSE [...] As above. Thank you for choosing the [facility]'s Lung Screening Program. Referred By: NICK [...] in the left lung base posteriorly. Implanted operations manager device within the left chest subcutaneous tissues. Moderate coronary artery calcifications. Possible prior stenting. Detail is obscured due to motion artifact. Mild aortic atherosclerosis. Additional scattered vascular calcifications elsewhere. No mediastinal or hilar lymphadenopathy. Hepatomegaly and diffuse hepatic steatosis. Chronic healed rib fracture. Diffuse degenerative changes. Diffuse idiopathic skeletal hyperostosis in the thoracic spine. Minimal scoliosis. Procedure Note Dorcas, Kvng Blanton MD - 09/21/2020 Examination: Lung Screening Low-Dose [...] As above. Thank you for choosing the [facility]'s Lung ScreeningProgram. Referred By: NICK HENDERSON [...] 11:13 PM 05/01/2017 6:00 PM Care Teams Drill Sharpener Relationship Specialty Start Date End Date Sandi Alfaro APNP Family & Internal Medicine [address] [address] PCP - General ADVANCED PRACTICE SUPERVISOR AGRICULTURAL EDUCATION 04/28/17 Cheryl Huston pharm spec (Ambulatory) REGISTERED NURSE 03/23/19
--- OUTSIDE RECORDS SUMMARY | 2024-04-14 15:11 | XMS_ITS | Encounter Summary ---
Author Organization [facility] Healthcare Address [address] [place] [address] Care Team Providers Care Sales Representative Name Role Phone Sandi Alfaro Primary Care Provider + Reason for Visit * Reason Onset Date Comments Chest Pain 03/24/2024 Encounter Details Date Type Department Care Team (Late st Contact Info) Description 03/24/[address] [facility] Medical Group Cardiology [address] [address] [address] [place] [address] Fernando Modi MD [address] [place] [address] Chest Pain Social History Tobacco Use Types Packs/Day Years Used Date Smoking Tobacco: Some Days Cigarettes 0.3 15 Smokeless Tobacco: Never Alcohol Use Standard Drinks/Week Comments Yes 0 (1 standard drink = 0.6 oz pur e alcohol) Sex and Gender Information Value Date Recorded Sex Assigned at Not on file Legal Sex Male 3:15 AM MRP CONTROLLER Gender Identity Male 09/03/2018 6:22 AM CDT Sexual Orientation Straight 09/03/2018 6: 22 AM CDT documented as of this encounter Miscellaneous Notes * Telephone Encounter - Harini Mann RN - 03/24/2024 9:16 AM MRP CONTROLLER Spoke with pt, pt states that he [...] as FYI and for any other recommendations. CONTROLLER * Telephone Encounter - Ilene Soni - [...] as possible. Please advise. Thank you. Contact [phone] CONTROLLER documented in this encounter Plan of Treatment Not on file documented as of this encounter Visit Diagnoses Not on filedocumented in this encounter Care Teams Sales Representative Relationship Specialty Start Date End Date Sandi Alfaro PA PCP - General Nurse Practitioner 08/21/17 documented as of this encounter
[2024-04-14 15:17] LABS: Basophils Percent Auto 0.3 % (0.2-1.2); Eosinophils Absolute Auto 0.1 K/mm3 (0-0.3); Hematocrit 41.1 % (42.0-52.0); Hemoglobin 14.3 g/dL (14.0-18.0); Immature Granulocyte Absolute 0.03 K/mm3 (0.00-0.031); Immature Granulocyte Percent A 0.5 % (0-0.5); Lymphocytes Absolute Auto 1.11 K/mm3 (0.9-3.2); Lymphocytes Percent Auto 17.1 % (18.3-44.2); Mean Corpuscular HGB Conc 34.8 g/dl (32-36); Mean Platelet Volume 11.1 fl (7.4-10.4); Monocytes Absolute Auto 0.6 K/mm3 (0.1-0.6); Monocytes Percent Auto 8.4 % (2.6-8.5); Neutrophils Absolute Auto 4.7 K/mm3 (1.3-6.7); Neutrophils Percent Auto 71.7 % (45.5-73.1); Platelet Count Result 151 k/mm3 (150-375); Red Blood Count 4.62 M/mm3 (4.6-6.20); Red Cell Distribution Width 14.6 % (11.5-14.5); White Blood Count 6.5 K/mm3 (4.5-10.0)
[2024-04-14 15:28] LABS: Alanine Aminotransferase 44 U/L (6-50); Albumin Level 4.6 g/dL (3.5-5.1); Alkaline Phosphatase 63 U/L (38-126); Anion Gap 13 mmol/L (4-12); Aspartate Amino Transferase 31 U/L (17-59); Bilirubin,Total 0.7 mg/dL (0.2-1.3); Blood Urea Nitrogen 18 mg/dL (9-20); Calcium 9.5 mg/dL (8.4-10.2); Carbon Dioxide 21 mmol/L (22-30); Chloride 102 mmol/L (98-107); Estimated Glomerular Filt Rate > 60; Glucose 254 mg/dL (65-110); Potassium 4.5 mmol/L (3.4-5.0); Sodium 136 mmol/L (137-145)
[2024-04-14 15:34] VITALS: BP 146/85; PULSE 87; RESP 16; O2SAT 98
[2024-04-14] MEDS: KETOROLAC 30 MG/ML VIAL (*BKC) IV PUSH (16:10)
[2024-04-14 16:14] VITALS: BP 162/82; PULSE 86; RESP 16; O2SAT 96
== END 2024-04-14 16:21 | disposition home or self-care (01) ==
PROVIDERS: Emergency Medicine; Nurse Practitioner Family; Emergency Provider Emergency Medicine; PCP Registered Nurse
DX: M54.50 Low back pain, unspecified (principal); I25.10 Atherosclerotic heart disease of native coronary artery without angina pectoris; I25.2 Old myocardial infarction; I69.954 Hemiplegia and hemiparesis following unspecified cerebrovascular disease affecting left non-dominant side; I50.9 Heart failure, unspecified; I11.0 Hypertensive heart disease with heart failure; E11.42 Type 2 diabetes mellitus with diabetic polyneuropathy; E11.51 Type 2 diabetes mellitus with diabetic peripheral angiopathy without gangrene; I73.9 Peripheral vascular disease, unspecified; E78.5 Hyperlipidemia, unspecified; J44.9 Chronic obstructive pulmonary disease, unspecified; G47.33 Obstructive sleep apnea (adult) (pediatric); K21.9 Gastro-esophageal reflux disease without esophagitis; L40.9 Psoriasis, unspecified; F32.A Depression, unspecified; F17.210 Nicotine dependence, cigarettes, uncomplicated; Z86.16 Personal history of COVID-19; Z87.01 Personal history of pneumonia (recurrent); Z86.718 Personal history of other venous thrombosis and embolism; Z87.442 Personal history of urinary calculi; Z86.0100 Personal history of colon polyps, unspecified; Z90.49 Acquired absence of other specified parts of digestive tract; Z95.5 Presence of coronary angioplasty implant and graft; K40.90 Unilateral inguinal hernia, without obstruction or gangrene, not specified as recurrent; K76.0 Fatty (change of) liver, not elsewhere classified; N20.0 Calculus of kidney; Z79.84 Long term (current) use of oral hypoglycemic drugs; Z79.82 Long term (current) use of aspirin; Z79.899 Other long term (current) drug therapy; Z79.85 Long-term (current) use of injectable non-insulin antidiabetic drugs; Z79.01 Long term (current) use of anticoagulants
CPT/HCPCS: 36415; 74176; 80053; 81001; 85025; 96361; 96374; 99284; A9270; J1885; J7030

== ENCOUNTER 2024-05-01 17:57 | Inpatient (IN) | payer MEDICARE, MEDICAID, SELFPAY ==
--- NOTE | ~2024-05-01 | XR_ITS ---
XR chest 2V Ordering provider: Caleb Azul MD History: 64 years Male with . cp . Comparison: March 18, 2024 FINDINGS: MEDIASTINUM: The cardiac silhouette is not enlarged. LUNGS: No infiltrates, effusions or pneumothorax. OTHER: Possible Fracture of the right 6th rib.. No free air under the diaphragm. Degenerative changes of the spine. IMPRESSION: Possible fracture in the right sixth rib. Clinical correlation advised. Otherwise, No acute cardiopulmonary pathology Reviewed, dictated and finalized at location A. [facility] IMPRESSION: Possible fracture in the right sixth rib. Clinical correlation advised. Otherwi se, No acute cardiopulmonary pathology
--- NOTE | 2024-05-01 17:58 | ECG_ITS ---
Test Date: 2024-05-01 18:05:05 Measurements Intervals Stuart Rate: 88 P: 36 SC: 165 QRS: 38 QRSD: 148 T: 26 QT: 391 QTc: 475 Interpretive Statements SINUS RHYTHM RIGHT BUNDLE BRANCH BLOCK [120+ ms QRS DURATION, UPRIGHT V1, 40+ ms S IN I/aVL/V4/V5/V6] Compared to ECG 03/23/2024 18:49:13 No significant changes Electronically Signed On 05-03-2024 15:32:28 CERTIFIED MEDICINE AIDE by Julio Richardson M.D.
--- OUTSIDE RECORDS SUMMARY | 2024-05-01 18:00 | XMS_ITS ---
Author Organization [facility] Address [address] [place], [place] [id number] Care Team Providers Care Spiritual Care Coordinator Name Role Phone PIETER WALSH Unavailable [phone] Sandi Alfaro Unavailable Unavailable REASON FOR VISIT [...] 0.0005 MG/MG Topical Ointment [Temovate] *Reorder from [facility] for eRx and Interaction Alerts* 7 Active clotrimazole 10 MG/ML Topical Cream CUTANEOUS clotrimazole 10 MG/ML Topical CreamOriginal Medicationclotrimazole 10 MG/ML Topical Cream *Reorder from [facility] for eRx and Interaction Alerts* 7 Active betamethasone 0.5 MG/ML / clotrimazole 10 MG/ML Topical Cream [Lotrisone] CUTANEOUS betamethasone 0.5 MG/ML / clotrimazole 10 MG/ML Topical Cream [Lotrisone]Original Medicationbetamethasone 0.5 MG/ML / clotrimazole 10 MG/ML Topical Cream [Lotrisone] *Reorder from [facility] for eRx and Interacti 7 Active Augmented betamethasone 0.5 MG/ML Topical Cream CUTANEOUS Augmented betamethasone 0.5 MG/ML Topical CreamOriginal MedicationAugmented betamethasone 0.5 MG/ML Topical Cream *Reorder from [facility] for eRx and Interaction Alerts* 7 Active betamethasone 0.5 MG/ML / clotrimazole 10 MG/ML Topical Cream CUTANEOUS betamethasone 0.5 MG/ML / clotrimazole 10 MG/ML Topical CreamOriginal Medicationbetamethasone 0.5 MG/ML / clotrimazole 10 MG/ML Topical Cream [facility]* 7 Active Encounters Encounter Location Date Provider Diagnosis [facility] [address] [place], [place] [id number] 11/09/2023 PIETERKELLEY WALSH Tinea unguium B35.1 ; Pain in right toe(s) M79.674 ; Pain in left toe(s) M79.675 ; Atherosclerosis of [place] arteries of extremities with intermittent claudication, bilateral [...] toe(s) (ICD-10 - M79.675) 11/09/2023 Atherosclerosis of [place] arteries of extremities with intermittent claudication, bilateral [...] problems develop. Provider Name:PIETER WALSH, 08:10:00 AM, [address], [address], [id number], Progress Notes * KLAUDIA HALEY BDOB:[birth year] (63 yo M)Acc No.[id number]:11/09/2023 Patient: KLAUDIA DUONG B Provider: Kristal Walsh DPM :1960 A ge:63 Y S ex:Male Date:11/09/2023 Address:[address] [place] [address] , [id number] Subjective: * Chief Complaints: * 1 . [...] seen by Dr. Alfaro was 08/2023., Initials [facility] , Patient presents to the office for [...] betamethasone 0.5 MG/ML Topical Cream *Reorder from [facility] for eRx and Interaction Alerts*, Taking betamethasone 0.5 MG/ML / clotrimazole 10 MG/ML Topical Cream CUTANEOUS , Notes to Pharmacist: betamethasone 0.5 MG/ML / clotrimazole 10 MG/ML Topical CreamOriginal Medicationbetamethasone 0.5 MG/ML / clotrimazole 10 MG/ML Topical Cream *Reorder from [facility] for eRx and Interaction Alerts*, Taking betamethasone 0.5 MG/ML / clotrimazole 10 MG/ML Topical Cream [Lotrisone] CUTANEOUS , Notes to Pharmacist: betamethasone 0.5 MG/ML / clotrimazole 10 MG/ML Topical Cream [Lotrisone]Original Medicationbetamethasone 0.5 MG/ML / clotrimazole 10 MG/ML Topical Cream [Lotrisone] *Reorder from [facility] for eRx and Interacti, Taking clobetasol propionate 0.0005 MG/MG Topical Ointment [Temovate] CUTANEOUS , Notes to Pharmacist: clobetasol propionate 0.0005 MG/MG Topical Ointment [Temovate]Original Medicationclobetasol propionate 0.0005 MG/MG Topical Ointment [Temovate] *Reorder from [facility] for eRx and Interaction Alerts*, Taking clotrimazole 10 MG/ML Topical Cream CUTANEOUS , Notes to Pharmacist: clotrimazole 10 MG/ML Topical CreamOriginal Medicationclotrimazole 10 MG/ML Topical Cream *Reorder from [facility] for eRx and Interaction Alerts* Objective: * [...] - M79.675 4 . A therosclerosis of [place] arteries of extremities with intermittent claudication, bilateral [...] Information: * Visit Code: * Procedure Codes: 47809 DEBRIDE NAIL, 6 OR MORE. Modifiers: Q8 * Sign off status: Completed true * Provider: Kristal Walsh DPM Date: 0 11/09/2023 Generated for Michelle chi/Danielle/Jeremyitting on: 0 05/01/2024 06:00 PM FRAME BUILDER History and Physical Notes * HPI (History [...]
--- OUTSIDE RECORDS SUMMARY | 2024-05-01 18:00 | XMS_ITS | Clinical Summary ---
Author Organization [facility] [address] Address [address] [place] [address] Care Team Providers Care Structural Rigger Name Role Phone Sandi Alfaro Primary Care [...] 24 hr tabletIndication s:Coronary artery disease of [place] artery of [place] heart with stable angina pectoris (HCC) TAKE [...] CAPSULE BY MOUTH EVERYDAY AT BEDTIME Active Hospital, Clinic, or Other Facility Administered Medication Ordered Dose Route Frequency Start Date End Date Status aminophylline 250 mg/10 mL injection 100 mgIndications:Coronary artery disease of [place] artery of [place] heart with stable angina pectoris (HCC) 100 mg IV Once 04/21/2024 04/21/2024 Ended Active Problems Problem Noted Date Diagnosed Date Hematuria, gross 11/13/2021 Chronic heart failure with p reserved ejection fraction (CMS/HCC) 11/12/2018 Cryptogenic stroke 07/06/2018 Status post placement of implantable loop record er 10/13/2017 Overview (10/13/2017): [employer] Reveal Loop Recorder. Dx; Cryptogenic Stroke. DOI 10/12/[address] Willoughby. [email or web address] remote monitoring. TIA (transient ischemic attack) 10/06/2017 S/P coronary artery stent placement 12/17/2016 Morbid obesity with BMI of 45.0-49.9, adult ([facility]) 08/13/2016 Mixed anxiety depressive disorder 05/01/2015 Overview (06/07/2016): Anxiety and depression Coronary artery disease of n ative artery of [place] heart with stable angina pectoris 02/20/2015 Overview (06/07/2016): Coronary artery disease involving [place] coronary artery of [place] heart with other form of angina pectoris CVA, old, hemiparesis ([facility] 02/20/2015 Overview (06/07/2016): CVA, old, hemiparesis Mixed diabetic hyperlipidemi a associated with type 2 diabetes mellitus ([facility]) 02/20/2015 Overview (06/07/2016): DM type 2 with diabetic dyslipidemia Hypertensive heart disease with congestive heart failure 02/20/2015 Overview (06/07/2016): Hypertensive heart disease with diastolic heart failure TAMIR on CPAP 10/17/2014 Overview (06/07/2016): TAMIR on CPAP Diabetes mellitus 10/17/2014 Overview (06/07/2016): DM (diabetes mellitus) Hypertension associated with diabetes 10/17/2014 Overview (06/07/2016): HTN (hypertension), benign Encounters Date Type Department Care Team Description 04/22/2024 Results Follow-Up [facility] Cardiology [address] [place] [address] Harini Mann RN Chest pain, unspecified type (Primary Dx); Cardiovascular stress test abnormal 04/21/2024 8:15 AM HEADLINER INSTALLER Ancillary Procedure [facility] Cardiology [address] [place] [address] [place] [phone] Coronary artery disease of [place] artery of [place] heart with stable angina pectoris (HCC) 04/20/2024 11:15 AM HEADLINER INSTALLER Ancillary Procedure [place] [address] [place] [phone] Coronary artery disease of [place] artery of [place] heart with stable angina pectoris (HCC) 04/11/2024 Telephone [place] [address] [place] [phone] Fernando Modi MD NM stress test instructions 04/04/2024 1:00 PM HEADLINER INSTALLER Ancillary Procedure [place] [address] [place] [phone] Coronary artery disease of [place] artery of [place] heart with stable angina pectoris (HCC) 03/29/2024 Telephone [place] [address] [place] [phone] Ifrah Gibson NP 03/28/2024 9:00 AM HEADLINER INSTALLER Office Visit [place] [address] [place] [phone] Ifrah Gibson NP Coronary artery disease of [place] artery of [place] heart with stable angina pectoris (HCC) (Primary Dx); CVA, old, hemiparesis (CMS/HCC) (HCC); Hypertension associated with diabetes (HCC); Recently quit using tobacco 03/24/2024 Telephone [place] [address] [place] [phone] Fernando Modi MD Chest Pain from Last 3 Months Surgical History Surgery [...] on file Legal Sex Male 3:15 AM HEADLINER INSTALLER Gender Identity Male 09/03/2018 6:22 AM CDT Sexual Orientation Straight 09/03/2018 6: 22 AM CDT Obstetrics History Last Filed Vital Signs Vital Sign Reading Time Taken Comments Blood Pressure 132/72 03/28/2024 9:10 AM HEADLINER INSTALLER Pulse 82 01/18/2024 8:53 AM HEADLINER INSTALLER Temperature - - Respiratory Rate - - Oxygen Saturation 96% 03/28/2024 9:10 AM HEADLINER INSTALLER Inhaled Oxygen Concentration - - Weight 137.4 kg (303 lb) 03/28/2024 9:10 AM HEADLINER INSTALLER Height 182.9 cm (6') 03/28/2024 9:10 AM HEADLINER INSTALLER Body Mass Index 41.09 03/28/2024 9:10 AM HEADLINER INSTALLER Plan of Treatment Health Maintenance Due Date Last Done Comments Albumin Creatinine Ratio, Urine 1960 Colon Cancer Screening-Colonoscopy 1960 Depression Screening 1960 Fall Risk Assessment 1960 Hemoglobin A1C 1959 Hepatitis C Screening 1959 Prostate Cancer Screening-PSA 1960 eGFR 1960 Dilated Eye Exam 1960 Foot Exam 1959 Hepatitis B Screening 1977 Pneumococcal vaccine 65+ (1 of 2 - PCV) 1978 Zoster Vaccine (1 of 2) 2009 Covid-19 [...] Procedure Name Priority Date/Time Associated Diagnosis Comments NM MPI SPECT (REST AND/OR STRESS) MULTIPLE STUDIES Schedule Routine, Read Routine (OP Routine) 04/20/2024 12:17 PM HEADLINER INSTALLER Coronary artery disease of [place] artery of [place] heart with stable angina pectoris (HCC) TRANSTHORACIC ECHO (TTE) COMPLETE W DOPPLER/CF W CONTRAST Routine 04/04/2024 1:37 PM HEADLINER INSTALLER Coronary artery disease of [place] artery of [place] heart with stable angina pectoris (HCC) LIPID PANEL Routine 10/20/2023 from Last 3 Months or Most Recently Relevant to Health Maintenance Results * NM MPI SPECT (Rest and/or Stress) Multiple Studies (04/20/2024 12:17 PM HEADLINER INSTALLER) Anatomical Region Laterality Modality Body N/A Nuclear Medicine 04/20/2024 11:1 5 AM HEADLINER INSTALLER Narrative 04/21/2024 4:[address] [facility] Medical Group Cardiology [address] [facility] [address], [place] [address] [address] [facility] [address], [place] [address] P:[phone] P:[phone] MPI Imaging Report Patient Name: SARA HALEYTomas HOLGUIN : 1960 Study Date: 04/20/2024 11:15:21 AM Gender: M Tech: [facility] Location: [facility] Provider: IFRAH GIBSON Height(Cm): 182.9 BSA: Weight(Kg): 137.4 BMI: 41.07 Order Provider: IFRAH GIBSON PHYSICIAN: Referring Physician: PA. Yojana HCG Physician: Fernando Modi M.D. Interpreting Physician: Gildardo Raymundo M.D. Stress Supervision: Gildardo Raymundo M.D. PROCEDURES: Pharmacologic SPECT Report: Myocardial perfusion imaging with Tc99M Sestamibi SPECT at rest and stress post regadenoson (Lexiscan) infusion. INDICATIONS: Dizziness, Hypertension, Shortness Of Breath, Family Hx CAD, High Cholesterol, Smoker, and I25.118 Atherosclerotic heart disease of [place] coronary artery with other forms of angina pectoris. FINDINGS: Procedural Findings: Two day rest/stress was used. Tc99m Sestamibi injected IV at rest was 30.7 millicuries 30.3 millicuries of Tc99M Sestamibi injected IV during Lexiscan stress Lexiscan 0.4mg administered IV over 10 seconds. Pharmacologic stress related symptoms and/or side effects during infusion include nausea. Symptoms were resolved with 100 mg of aminophylline IVP. Baseline heart rate was 83 BPM Maximum Heart Rate Achieved was: 95 BPM Baseline blood pressure was 124/64 mmHg Post Stress Blood Pressure was 120/64 mmHg Termination: Protocol complete. Resting ECG: Normal sinus rhythm. RBBB. Post ECG: No diagnostic ST changes. Arrhythmia: No arrhythmias seen. Perfusion Findings: Abnormal perfusion imaging - see below. Technical quality of study is excellent. Prone imaging was not performed. Left ventricle cavity size at rest is normal. Left ventricle cavity size with stress is unchanged. A TID of 0.72 was automatically calculated. defect 1: Size is small. Severity is mild to moderate in intensity. Location of defect is in the mid inferior segment and apical inferior segment. Reversibility is full. Type of defect is ischemia. LV Function: Global left ventricular function is normal. Left ventricular ejection fraction is 67 %. CONCLUSIONS: Global left ventricular function is normal. Left ventricular ejection fraction is 67 %. Myocardial perfusion imaging is abnormal for a small area of mid to apical inferior ischemia. No infarction. Diaphragmatic/gut attenuation artifact is also seen which may cause the perfusion defect but prone imaging could not be performed. Negative EKG portion of stress test. Electronically Signed By: Husam Raymundo MD 04/21/2024 4:43:33 PM HEADLINER INSTALLER Electronically Signed By: Husam Raymundo MD 04/21/2024 4:43:33 PM HEADLINER INSTALLER Procedure Note Husam Raymundo MD - 04/21/2024 [facility] Medical [facility] Cardiology [address] [facility] [address], [place] [address] [address] [facility] [address], [place] [address] P:[phone] P:[phone] MPI Imaging Report Patient Name: KLAUDIA HALEY B : 1960 Study Date: 04/20/2024 11:15:21 AM Gender: M Tech: [facility] Location: [facility] Provider: IFRAH GIBSON Height(Cm): 182.9 BSA: Weight(Kg): 137.4 BMI: 41.07 Order Provider: IFRAH GIBSON PHYSICIAN: Referring Physician: CARLOS Dial. HCG Physician: Fernando Modi M.D. Interpreting Physician: Gildardo Raymundo M.D. Stress Supervision: Gildardo Raymundo M.D. PROCEDURES: Pharmacologic SPECT Report: Myocardial perfusion imaging with Tc99M Sestamibi SPECT at rest and stresspost regadenoson (Lexiscan) infusion. INDICATIONS: Dizziness, Hypertension, Shortness Of Breath, Family Hx CAD, HighCholesterol, Smoker, and I25.118 Atherosclerotic heart disease of [place] coronary artery withother forms of angina pectoris. FINDINGS: Procedural Findings: Two day rest/stress was used. Tc99m Sestamibi injected IV at rest was 30.7 millicuries 30.3 millicuries of Tc99M Sestamibi injected IV during Lexiscan stress Lexiscan 0.4mg administered IV over 10 seconds. Pharmacologic stress related symptoms and/or side effects duringinfusion include nausea. Symptoms were resolved with 100 mg of aminophylline IVP. Baseline heart rate was 83 BPM Maximum Heart Rate Achieved was: 95 BPM Baseline blood pressure was 124/64 mmHg Post Stress Blood Pressure was 120/64 mmHg Termination: Protocol complete. Resting ECG: Normal sinus rhythm. RBBB. Post ECG: No diagnostic ST changes. Arrhythmia: No arrhythmias seen. Perfusion Findings: Abnormal perfusion imaging - see below. Technical quality of study isexcellent. Prone imaging was not performed. Left ventricle cavity size at rest is normal.Left ventricle cavity size with stress is unchanged. A TID of 0.72 was automaticallycalculated. defect 1: Size is small. Severity is mild to moderate in intensity. Location ofdefect is in the mid inferior segment and apical inferior segment. Reversibility is full.Type of defect is ischemia. LV Function: Global left ventricular function is normal. Left ventricular ejectionfraction is 67 %. CONCLUSIONS: Global left ventricular function is normal. Left ventricular ejectionfraction is 67 %. Myocardial perfusion imaging is abnormal for a small area of mid to apicalinferior ischemia. No infarction. Diaphragmatic/gut attenuation artifact is alsoseen which may cause the perfusion defect but prone imaging could not be performed. Negative EKG portion of stress test. Electronically Signed By: Husam Raymundo MD 04/21/2024 4:43:33 PM HEADLINER INSTALLER Electronically Signed By: Husam Raymundo MD 04/21/2024 4:43:33 PM HEADLINER INSTALLER us Ifrah Gibson ALUMNI RELATIONS MANAGER IMG NM PROCEDURES Final R esult * TRANSTHORACIC ECHO (TTE) COMPLETE W DOPPLER/CF W CONTRAST (04/04/2024 1:37 PM HEADLINER INSTALLER) LV EF 75 % CONS SCIMAGE Anatomical Region Laterality Modality Ultrasound 04/04/2024 12:5 7 PM HEADLINER INSTALLER Narrative 04/04/2024 3:50 PM HEADLINER INSTALLER [facility] [address], [place] [address] [address] [facility] [address], [place] [address] P:[phone] P:[phone] Echocardiographic Report Patient Name: KLAUDIA HALEY B : 1960 Study Date: 04/04/2024 12:57:00 PM Gender: M Tech: [facility] Provider: IFRAH GIBSON Height(Cm): 183 BSA: 2.64 Weight(Kg): 137.4 Heart Rate: 79 BP: 132 / 72 Quality: Definity contrast agent used to enhance endocardial border definition Order Provider: IFRAH GIBSON PROCEDURES: Echocardiographic Report: Transthoracic echocardiogram with complete 2D, M-Mode, color Doppler examination and Definity contrast. INDICATIONS: Coronary Artery Disease, Shortness of breath, and I25.118 Atherosclerotic heart disease of [place] coronary artery with other forms of angina [...] FINDINGS: Interpretation Site: Exam was interpreted at [facility]. Left Ventricle: Normal left ventricular size. Definity [...] views. Electronically Signed By: Todd Kwan MD, [facility] 04/04/2024 3:49:55 PM HEADLINER INSTALLER Procedure Note Todd Kwan MD - 04/04/2024 [facility] Medical [facility] Cardiology [address] [facility] [address] [address] [address] [facility] [address], [place] [address] P:[phone] P:[phone] Echocardiographic Report Patient Name: KLADUIA HALEY B : 1960 Study Date: 04/04/2024 12:57:00 PM Gender: M Tech: [facility] Provider: IFRAH GIBSON Height(Cm): 183 BSA: 2.64 Weight(Kg): 137.4 Heart Rate: 79 BP: 132 / 72 Quality: Definity contrast agent used to enhance endocardial borderdefinition Order Provider: IFRAH GIBSON PROCEDURES: Echocardiographic Report: Transthoracic echocardiogram with complete 2D, M-Mode, color Dopplerexamination and Definity contrast. INDICATIONS: Coronary Artery Disease, Shortness of breath, and I25.118 Atheroscleroticheart disease of [place] coronary artery with other forms of angina [...] FINDINGS: Interpretation Site: Exam was interpreted at [facility]. Left Ventricle: Normal left ventricular size. Definity [...] views. Electronically Signed By: Todd Kwan MD, [facility] 04/04/2024 3:49:55 PM HEADLINER INSTALLER Ifrah Gibson NP CV ECHO PROCEDURES Final Result [...] Recently Relevant to Health Maintenance Insurance MEDICARE [facility] MED[employer]ARE MEDICARE [facility] MEDICARE Care Teams Structural Rigger Relationship Specialty Start Date End Date Sandi Alfaro PA PCP - General Nurse Practitioner 08/21/17
--- OUTSIDE RECORDS SUMMARY | 2024-05-01 18:00 | XMS_ITS | Referral Summary ---
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) 04/20/2024 11:[address] MAKER Ancillary Procedure [address] [place] [address] 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) 04/11/2024 Telephone [facility] [address] [place] [address] [address] [place] [address] Fernando Modi MD NM stress test instructions 04/04/2024 1:[address] MAKER Ancillary Procedure [facility] [address] [place] [address] [address] [place] [address] 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) (Primary Dx); CVA, old, hemiparesis (CMS/HCC) (HCC); Hypertension associated with diabetes (HCC); Recently quit using tobacco 03/24/2024 Telephone [facility] [address] [place] [phone] Fernando Modi MD Chest Pain from Last 3 Months Allergies No known [...] 24 hr tabletIndication s: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) TAKE [...] mL injection 100 mgIndications: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) 100 mg IV Once 04/21/2024 04/21/2024 Ended Active Problems Problem Noted Date Diagnosed Date Hematuria, gross 11/13/2021 Chronic heart failure with p reserved ejection fraction (CMS/HCC) 11/12/2018 Cryptogenic stroke 07/06/2018 Status post placement of implantable loop record er 10/13/2017 Overview (10/13/2017): [employer] Reveal Loop Recorder. Dx; Cryptogenic Stroke. DOI 10/12/[address] Willoughby. [facility] remote monitoring. TIA (transient ischemic attack) 10/06/2017 S/P coronary artery stent placement 12/17/2016 Morbid obesity with BMI of 45.0-49.9, adult ([facility]) 08/13/2016 Mixed anxiety depressive disorder 05/01/2015 Overview (06/07/2016): Anxiety and depression Coronary artery disease of n ative artery of nulato heart with stable angina pectoris 02/20/2015 Overview (06/07/2016): Coronary artery disease involving nulato coronary artery of nulato heart with other form of angina pectoris CVA, old, hemiparesis ([facility]) 02/20/2015 Overview (06/07/2016): CVA, old, hemiparesis Mixed diabetic hyperlipidemi a associated with type 2 diabetes mellitus ([facility]) 02/20/2015 Overview (06/07/2016): DM type 2 with [...] on file Legal Sex Male 3:[address] Gender Identity Male 09/03/2018 6:22 AM CDT Sexual Orientation Straight 09/03/2018 6: 22 AM CDT Last Filed Vital Signs Vital Sign Reading Time Taken Comments Blood Pressure 132/72 03/28/2024 9:[address] MAK[address] Pulse 82 01/18/2024 8:[address] MAK[address] Temperature - - Respiratory Rate - - Oxygen Saturation 96% 03/28/2024 9:[address] Inhaled Oxygen Concentration - - Weight 137.4 kg (303 lb) 03/28/2024 9:[address] Height 182.9 cm (6') 03/28/2024 9:[address] Body Mass Index 41.09 03/28/2024 9:[address] Plan of Treatment Not on file Procedures Procedure Name Priority Date/Time Associated Diagnosis Comments NM MPI SPECT (REST AND/OR STRESS) MULTIPLE STUDIES Schedule Routine, Read Routine (OP Routine) 04/20/2024 12:[address] MAKER 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 [address], [place] [address] [facility] [address], [place] [address] P:[phone] P:[phone] MPI Imaging Report Patient Name: SARA HALEYTomas HOLGUIN : 1960 Study Date: 04/20/2024 11:15:21 AM Gender: M Tech: [facility] Location: [facility] Provider: IFRAH GIBSON Height(Cm): 182.9 BSA: Weight(Kg): [...] Smoker, and I25.118 Atherosclerotic heart disease of nulato coronary artery with other forms of angina [...] By: Husam Raymundo MD 04/21/2024 4:43:[address] Electronically Signed By: Husam Raymundo MD 04/21/2024 4:43:[address]KER Procedure Note Husam Raymundo MD - 04/21/2024 [facility] [address] [facility] [address] [address] [facility] [address] [place], [place] [address] P:[phone] P:[phone] MPI Imaging Report Patient Name: KLAUDIA HALEY Tomas : 1960 Study Date: 04/20/2024 11:15:21 AM Gender: M Tech: [facility] Location: [facility] Provider: IFRAH GIBSON Height(Cm): 182.9 BSA: Weight(Kg): [...] Smoker, and I25.118 Atherosclerotic heart disease of nul[place] coronary artery withother forms of angina pectoris. [...] By: Husam Raymundo MD 04/21/2024 4:43:[address] Electronically Signed By: Husam Raymundo MD 04/21/2024 4:43:[address] Ifrah Gibson REGISTER OF DEEDS IMG NM PROCEDURES Final R esult * TRANSTHORACIC ECHO (TTE) COMPLETE W DOPPLER/CF W CONTRAST (04/04/2024 1:[address] MAKER) LV EF 75 % CONS SCIMAGE Anatomical Region Laterality Modality Ultrasound 04/04/2024 12:[address] MAKER Narrative 04/04/2024 3:[address] [facility] [address] [facility] [address], [place] [address] [facility] [address], [place] [address] P:[phone] P:[phone] Echocardiographic Report Patient Name: KLAUDIA HALEY B : 1960 Study Date: 04/04/2024 12:57:00 PM Gender: M Tech: Location: [place] Ref Provider: IFRAH GIBSON Height(Cm): 183 BSA: 2.64 Weight(Kg): 137.4 Heart Rate: 79 BP: 132 / 72 Quality: Definity contrast agent used to enhance endocardial border definition Order Provider: IFRAH GIBSON PROCEDURES: Echocardiographic Report: Transthoracic echocardiogram with complete 2D, M-Mode, color Doppler examination and Definity contrast. INDICATIONS: Coronary Artery Disease, Shortness of breath, and I25.118 Atherosclerotic heart disease of nul[place] coronary artery with other forms of angina [...] Interpretation Site: Exam was interpreted at [facility]. Left Ventricle: Normal left ventricular size. Definity [...] views. Electronically Signed By: Todd Kwan MD, [facility] 04/04/2024 3:49:[address]KER Procedure Note Todd Kwan MD - 04/04/2024 [facility] [address] [facility] [address] [id number] [facility] [address], [place], [place] [address] P:[phone] P:[phone] Echocardiographic Report Patient Name: KLAUDIA HALEY Tomas : 1960 Study Date: 04/04/2024 12:57:00 PM Gender: M Tech: Location: [facility] Provider: IFRAH GIBSON Height(Cm): 183 BSA: 2.64 Weight(Kg): 137.4 Heart Rate: 79 BP: 132 / 72 Quality: Definity contrast agent used to enhance endocardial borderdefinition Order Provider: IFRAH GIBSON PROCEDURES: Echocardiographic Report: Transthoracic echocardiogram with complete 2D, M-Mode, color Dopplerexamination and Definity contrast. INDICATIONS: Coronary Artery Disease, Shortness of breath, and I25.118 Atheroscleroticheart disease of nulato coronary artery with other forms of angina [...] Interpretation Site: Exam was interpreted at [facility]. Left Ventricle: Normal left ventricular size. Definity [...] views. Electronically Signed By: Todd Kwan MD, [facility] 04/04/2024 3:49:[address] Ifrah Gibson NP CV ECHO PROCEDURES Final Result * (ABNORMAL) Lipid panel (10/20/2023) SCRIBED Cholesterol, Total 87 < - 200 EXTERNAL LAB SCRIBED HDL 24 > - 40 EXTERNAL LAB SCRIBED LDL 20 < - 100 EXTERNAL LAB SCRIBED Triglycerides 213(A) < - 150 EXTERNAL LAB Blood 10/20/2023 Historical Provider LAB BLOOD ORDERABLES Elida puri Result EXTERNAL LAB from Last 3 Months or Most Recently Relevant to Health Maintenance Insurance MEDICARE [facility] MEDICARE MEDICARE [facility] MEDICARE Care Teams Commercial Fisherman Relationship Specialty Start Date End Date Sandi Alfaro PA PCP - General Nurse Practitioner 08/21/17
--- OUTSIDE RECORDS SUMMARY | 2024-05-01 18:01 | XMS_ITS | Clinical Summary ---
Author Organization [facility] Address [address] [place] [address] Care Team Providers Care Professor Of Exercise Science Name Role Phone Sandi Alfaro Primary Care Provider [phone] Cheryl Huston RN Unavailable Unavailable Allergies No [...] complication, without long-term current use of insulin ([facility]/HCC) USE 1 STRIP BY OTHER ROUTE 2 [...] ons:Dyslipidemia associated with type 2 diabetes mellitus (CMS/HCC HHS/HCC) Inject 3 mg into the skin once a week. 6 mL 11 08/26/19 24 Active fluticasone-salme terol (ADVAIR HFA) 115-21 MCG/ACT inhalerIndication s:Mild emphysema (CMS/HCC HHS/HCC) Inhale 2 puffs into the lungs 2 (two) times daily. 12 g 3 11/27/19 24 Active metFORMIN (GLUCOPHAGE) 1000 MG tabletIndications :Diabetic foot (CMS/HCC HHS/HCC) TAKE 1 TABLET BY MOUTH TWICE A DAY 180 tablet 1 01/18/20 24 Active ondansetron (ZOFRAN-ODT) 4 [...] complication, without long-term current use of insulin ([facility]) Take 1 tablet (10 mg total) by mouth daily. 90 tablet 02/16/20 24 Active ondansetron (ZOFRAN-ODT) 4 MG disintegrating tabletIndications :Vertigo Take 1 tablet (4 mg total) by mouth every 8 (eight) hours as needed for Nausea. 30 tablet 03/22/19 25 Active losartan (COZAAR) 100 MG tabletIndications :Hypertensive heart disease with congestive heart failure, unspecified heart failure type ([facility]),Primary hypertension TAKE 1 TABLET BY MOUTH EVERY DAY 90 tablet 1 03/23/19 25 Active albuterol sulfate HFA 108 (90 [...] DAY 90 tablet 1 04/14/19 25 Active omeprazole (PRILOSEC) 40 MG capsuleIndication s:Gastroesophagea l reflux disease without esophagitis TAKE 1 CAPSULE (40 MG TOTAL) BY MOUTH DAILY. 90 capsule 1 04/15/19 25 Active ALPRAZolam (XANAX) 0.25 MG tabletIndications :Mixed anxiety depressive disorder TAKE 1 TABLET (0.25 MG TOTAL) BY MOUTH 3 TIMES A DAY NEEDED FOR SLEEP Strength: 0.25 mg 30 tablet 04/26/19 25 Active buPROPion SR (WELLBUTRIN SR) 150 MG 12 hr tabletIndications :Mixed anxiety depressive disorder TAKE 1 TABLET BY MOUTH TWICE A DAY 180 tablet 01/18/20 24 2024 Discontinued doxazosin (CARDURA) 2 MG tabletIndications :Hypertensive heart disease with congestive heart failure, unspecified heart failure type ([facility]) TAKE 1 TABLET BY MOUTH EVERYDAY AT BEDTIME 90 tablet 01/18/20 24 2024 Discontinued amLODIPine (NORVASC) 10 MG tabletIndications :Primary hypertension TAKE 1 TABLET BY MOUTH EVERY DAY 90 tablet 01/18/20 24 2024 Discontinued omeprazole (PRILOSEC) 40 MG capsuleIndication s:Gastroesophagea l reflux disease without esophagitis TAKE 1 CAPSULE (40 MG TOTAL) BY MOUTH DAILY. 90 capsule 1 01/18/20 24 2024 Discontinued ALPRAZolam (XANAX) 0.25 MG tabletIndications :Mixed anxiety depressive disorder TAKE 1 TABLET (0.25 MG TOTAL) BY MOUTH 3 TIMES A DAY NEEDED FOR SLEEP Strength: 0.25 mg 30 tablet 03/30/19 25 2024 Discontinued(R eorder) doxazosin (CARDURA) 2 MG tabletIndications :Hypertensive heart disease with congestive heart failure, unspecified heart failure type ([facility]) TAKE 1 TABLET BY MOUTH EVERYDAY AT BEDTIME 90 tablet 1 04/19/19 25 2024 Discontinued(D iscontinued by another clinician) Active Problems Problem Noted Date Diagnosed Date Thrombocytopenia 03/31/2024 Polyneuropathy associated wi th underlying disease ([facility]) 12/16/2023 Morbid (severe) obesity due to excess calories ([facility]) 05/15/2022 Body mass index (BMI) 40.0-44.9, adult ([facility]) 05/15/2022 Acute hyperglycemia 05/17/2021 Anxiety 05/17/2021 Arthritis 05/17/2021 Atypical syncope 05/17/2021 Calculus of left ureter 05/17/2021 Eczema 05/17/2021 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/17/2021 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 current use of anticoagulant therapy 0 05/17/2021 Peripheral neuropathy 05/17/2021 Rectal polyp 05/17/2021 Swelling of left lower extremity 05/17/2021 Tear of medial meniscus of knee 05/17/2021 Tobacco abuse 05/17/2021 Pain due to ureteral stent 05/17/2021 Cigarette nicotine dependence without complicati on 03/14/2019 Seasonal allergic rhinitis due to pollen 09/20/2 019 Chronic heart failure with p reserved ejection fraction ([facility]) 11/12/2018 Arthralgia of left hand 11/02/2018 Enchondroma of bone of hand, left 11/02/2018 Carpal tunnel syndrome on left 08/26/2018 Cryptogenic stroke ([facility]) 07/06/2018 Skin lesion of right arm 06/28/2018 Weakness 05/26/2018 Status post placement of implantable loop record er 10/13/2017 Overview (01/13/2018): Overview: Right Skills Reveal Loop Recorder. Dx; Cryptogenic Stroke. DOI 10/12/[address] Willoughby. JLGOV remote monitoring. TIA (transient ischemic attack) 10/06/2017 Mild emphysema ([facility]) 08/28/2017 Hepatic steatosis 08/28/2017 Memory loss 05/18/2017 Chest pain 04/30/2017 S/P coronary artery stent placement 12/17/2016 Hemorrhoids 10/03/2016 Hearing loss 08/01/2016 Decreased hearing 07/17/2016 Chronic nausea 03/27/2016 Diabetic foot ([facility]) 03/10/2016 Abdominal wall bulge 03/10/2016 CHF (congestive heart failure) ([facility]) 01/14/2016 Peripheral edema 12/19/2015 Tinnitus 11/08/2015 History of kidney stones 10/03/2015 Insomnia 05/07/2015 Chronic cough 03/20/2015 Hypertensive heart disease w ith congestive heart failure ([facility]) 02/20/2015 Overview (01/13/2018): Overview: Hypertensive heart disease with diastolic heart failure 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 02/20/2015 Overview (01/13/2018): Overview: Coronary artery disease involving benton coronary artery of benton heart with other form of angina pectoris CVA, old, hemiparesis ([facility]) 02/21/20 15 Overview (01/13/2018): Overview: CVA, old, hemiparesis Dyslipidemia associated with type 2 diabetes mellitus ([facility]) 02/20/2015 Overview (01/13/2018): Overview: DM (diabetes mellitus) Overview: DM type 2 with diabetic dyslipidemia Mixed diabetic hyperlipidemi a associated with type 2 diabetes mellitus ([facility]) 02/20/2015 Overview (05/17/2021): DM type 2 with [...] Overview: HTN (hypertension), benign Cerebrovascular accident (CVA) ([facility]) 08/23/2013 Hyperlipidemia 08/23/2013 Resolved Problems Problem Noted Date Diagnosed Date Resolved Date Left nephrolithiasis 10/07/2017 018 Encounter for screening for lung cancer 04/09/2017 06/28/2018 BMI 45.0-49.9, adult ([facility]) 10/03/2016 05/15/2022 Morbid obesity ([facility]) 08/13/2016 05/15/2022 Encounter for preventive health examination 08/23/2013 06/28/2018 Encounters Date Type Department Care Team Description 04/14/2024 Scan HEALTH INFO SRVCS Scanned, Doc Med Group Lab (SCAN); CT (SCAN) 04/11/2024 Telephone [facility] Medical Group Family & Internal Medicine [address] [address] Sandi Alfaro APNP Results 03/31/2024 8:40 AM SHROUD LINE TIER Office Visit [address] [address] Sandi Alfaro APNP ER F/U 03/31/2024 Travel 03/29/2024 Scan MG HEALTH INFO SRVCS Scanned, Doc Med Group Image (SCAN) 03/28/2024 Scan MG HEALTH INFO SRVCS Scanned, Doc Med Group 03/23/2024 Scan MG HEALTH INFO SRVCS Scanned, Doc Med Group Lab (SCAN) 03/23/2024 Scan MG HEALTH INFO SRVCS Scanned, Doc [facility] Group Lab (SCAN) 03/22/[address] [phone] Sandi Alfaro APNP Medication Request; Advice 03/18/2024 Scan [facility] HEALTH INFO SRVCS Scanned, Doc [facility] Lab (SCAN) 03/18/2024 Scan [facility] HEALTH INFO SRVCS Scanned, Doc Med Group Lab (SCAN); CT (SCAN); Image (SCAN) 02/26/[address] [address] Sandi Alfaro APNP Medication Request 02/22/2024 Scan MG HEALTH INFO SRVCS Scanned, Doc Med Group 02/10/[address] [address] Sandi Alfaro APNP Lab Results 02/05/2024 9:20 AM SHROUD LINE TIER Office Visit [address] [address] Sandi Alfaro APNP Mass (Follow-up on left arm mass) 02/05/2024 Travel from Last 3 Months Immunizations Name Administration [...] pur e alcohol) very rarely 6 beers/year [facility] Utilities Answer Date Recorded In the past 12 months has e [employer], gas, oil, or water [employer] threatened to shut off services in your [...] often do you attend chur ch or cheondoism services? Never 05/12/2023 Do you belong to any clubs o r organizations such as sikh groups, unions, fraternal or athletic groups, or [...] Recorded Patient Health Questionnaire-2 Score 0 03/31/2024 [facility] Answer Date [...] place to sleep or slept in a halfway (including now)? No 05/12/2023 Sex and Gender Information Value Date Recorded Sex Assigned at Male 03/31/2024 8:58 AM SHROUD LINE TIER Legal Sex Male 8:01 PM CDT Gender Identity Not on file Sexual Orientation Not on file Last Filed Vital Signs Vital Sign Reading Time Taken Comments Blood Pressure 128/72 03/31/2024 8:56 AM SHROUD LINE TIER Pulse 81 03/31/2024 8:56 AM [employer]ROUD LINE TIER Temperature 36.3 C (97.4 F) 03/31/2024 8:56 AM SHROUD LINE TIER Respiratory Rate 18 03/31/2024 8:56 AM SHROUD LINE TIER Oxygen Saturation 98% 03/31/2024 8:56 AM SHROUD LINE TIER Inhaled Oxygen Concentration - - Weight 139 kg (306 lb 6.4 oz) 03/31/2024 8:56 AM SHROUD LINE TIER Height 182.9 cm (6') 03/31/2024 8:56 AM SHROUD LINE TIER Body Mass Index 41.56 03/31/2024 8:56 AM SHROUD LINE TIER Plan of Treatment Health Maintenance Due Date [...] 12/01, 12/31/2021, Additional history exists PHQ-2 (Physician [place]) Completed 03/31/2024 Meningococcal B Vaccine Aged Out No l onger eligible based on patient's age to complete this topic Meningococcal Vaccine Aged Out No shyam jose eligible based on patient's age to complete this topic RSV Immunizations Under 20 Months Aged Out No longer eligible based on patient's age to complete this topic Procedures Procedure Name Priority Date/Time Associated Diagnosis Comments CT GENERIC 04/14/2024 OUTSIDE LAB (SCAN ORDER) 04/14/2024 OUTSIDE LAB (SCAN ORDER) 04/14/2024 COLLECTION VENOUS BLOOD VENIPUNCTURE Routine 03/31/2024 9:56 AM SHROUD LINE TIER Body mass index (BMI) 40.0-44.9, adult ([facility]) Mixed diabetic hyperlipidemia associated with type 2 diabetes mellitus ([facility]/HCC HHS/HCC) Prostate cancer screening Primary hypertension PROSTATE SPECIFIC ANTIGEN,SCREENING Routine 03/31/2024 9:55 AM SHROUD LINE TIER Prostate cancer screening CBC W/DIFF AUTOMATED Routine 03/31/2024 9:55 AM SHROUD LINE TIER Thrombocytopenia ([facility]/HCC) COMPREHENSIVE METABOLIC PANEL Routine 03/31/2024 9:55 AM SHROUD LINE TIER Body mass index (BMI) 40.0-44.9, adult (CMS/HCC HHS/HCC) Mixed diabetic hyperlipidemia associated with type 2 diabetes mellitus (CMS/HCC HHS/HCC) Primary hypertension MG/PCCL UDS W CONF Routine 03/31/2024 8: 59 AM SHROUD LINE TIER Long-term use of high-risk medication IMAGE GENERIC [...] URINE RANDOM W/CREATININE Routine 02/05/2024 11:04 AM SHROUD LINE TIER Mixed diabetic hyperlipidemia associated with type 2 diabetes mellitus ([facility]/HCC HHS/HCC) COLLECT.CAPILLARY (FNGR,HEEL,EAR) Routine 02/05/2024 10:00 AM SHROUD LINE TIER Type 2 diabetes mellitus without complication, without long-term current use of insulin ([facility]/HCC HHS/HCC) HEMOGLOBIN, GLYCOSYLATED Routine 02/05/2024 Type 2 diabetes mellitus without complication, without long-term current use of insulin (CMS/HCC HHS/HCC) LIPID PANEL Routine 05/13/2023 6:00 AM CDT [...] Recently Relevant to Health Maintenance Results * CT GENERIC (04/14/2024) Only the most recent of3 resultswithin the time period is included. Anatomical Region Laterality Modality Other 04/14/2024 [facility] Scanned SCANNING Final Resu lt * OUTSIDE LAB (SCAN ORDER) (04/14/2024) Only the most recent of8 resultswithin the time period is included. 04/14/2024 [facility] Scanned SCANNING Final Resu lt * PROSTATE SPECIFIC ANTIGEN,SCREENING (03/31/2024 9:55 AM SHROUD LINE TIER) PSA 2.27 <4.00 NG/ML 03/31/2024 3:04 PM SHROUD LINE TIER [facility] Comment: ASSAY PERFORMED BY [employer]UNO[employer]SA[employer] METHODOLOGY USING SIEMENS DIMENSION REAGENT. PATIENT RESULTS DETERMINED BY ASSAYS FROM DIFFERENT MANUFACTURERS AND/OR BY DIFFERENT METHODS MAY NOT BE COMPARABLE. 03/31/2024 9:55 AM SHROUD LINE TIER Sandi LYNCH LABORATORY Final Resul t [facility] [address] [place] [address], [place] [phone] * (ABNORMAL) COMPREHENSIVE METABOLIC PANEL (03/31/2024 9:55 AM SHROUD LINE TIER) [facility] SODIUM S/P/B 139 136 - 145 MMOL/L 03/31/2024 3:29 PM [facility] POTASSIUM S/P/B 4.2 3.5 - 5.1 MMOL/L 03/31/2024 3:29 PM [facility] CHLORIDE S/P/B 103 98 - 107 MMOL/L 03/31/2024 3:29 PM [facility] CO2 25.2 21 - 32 MMOL/L 03/31/2024 3:29 PM [facility] GLUCOSE 127(H) 70 - 99 MG/DL 03/31/2024 3:29 PM [facility] BUN 12 7 - 18 MG/DL 03/31/2024 3:29 PM [facility] CREATININE S/P/B 1.11 0.70 - 1.30 MG/DL 03/31/2024 3:29 PM [facility] CALCIUM S/P/B 9.1 8.4 - 10.5 MG/DL 03/31/2024 3:29 PM [facility] BILIRUBIN TOTAL S/P/B 0.6 0.2 - 1.0 MG/DL 03/31/2024 3:29 PM [facility] ALKALINE PHOSPHATASE S/P/B 76 45 - 115 U/L 03/31/2024 3:29 PM [facility] AST 28 15 - 37 U/L 03/31/2024 3:29 PM [facility] ALT 46 16 - 63 U/L 03/31/2024 3:29 PM [facility] TOTAL PROTEIN S/P/B 6.9 6.4 - 8.2 G/DL 03/31/2024 3:29 PM [facility] ALBUMIN S/P/B 3.8 3.4 - 5.0 G/DL 03/31/2024 3:29 PM SHROUD LINE TIER [facility] ANION GAP 10.8 5 - 15 MMOL/L 03/31/2024 3:29 PM SHROUD LINE TIER [facility] Comment:REFERENCE RANGE NOT ESTABLISHED OSMOLALITY (CALC) 289 MOSM/KG 025 3:29 PM [facility] Comment:REFERENCE RANGE NOT ESTABLISHED GFR ESTIMATE 74(L) >90 ML/MIN/1. 73 M2 03/31/2024 3:29 PM SHROUD LINE TIER [facility] GFR NOTES GFR REFERENCE S: 03/31/2024 3:29 PM [facility] Comment: THE ESTIMATED GFR IS CALCULATED USING [...] FAILURE: <15 ml/min/1.73 m2 03/31/2024 9:55 AM SHROUD LINE TIER us Sandi LYNCH LABORATORY Final Resul t [facility] [place] [address] [place] [address], * (ABNORMAL) CBC W/DIFF AUTOMATED (03/31/2024 9:55 AM SHROUD LINE TIER) WBC 7.37 4.00 - 10.80 x10'3/uL 03/31/2024 3:14 PM SHROUD LINE TIER [facility] RBC 4.34(L) 4.50 - 6.10 x10'6/uL 03/31/2024 3:14 PM [facility] HGB 13.2 13.0 - 18.0 G/DL 03/31/2024 3:14 PM [facility] HCT 38.9 37.0 - 52.0 % 03/31/2024 3:14 PM [facility] MCV 89.6 78.0 - 100.0 FL 03/31/2024 3:14 PM [facility] MCH 30.4 27.0 - 31.0 PG 03/31/2024 3:14 PM [facility] MCHC 33.9 33.0 - 36.0 G/DL 03/31/2024 3:14 PM [facility] RDW 14.0 11.5 - 14.5 % 03/31/2024 3:14 PM [facility] PLT 140(L) 150 - 350 x10'3/uL 03/31/2024 3:14 PM [facility] MPV 12.2(H) 7.4 - 10.4 FL 03/31/2024 3:14 PM [facility] DIFFERENTIAL TYPE AUTOMATED DIFFERENTIAL 03/31/2024 3:15 PM [facility] NEUTROPHILS % 73.8 % 03/31/2024 3:15 PM [facility] LYMPHOCYTES % 14.5 % 03/31/2024 3:15 PM [facility] MONOCYTES % 9.0 % 03/31/2024 3:15 PM [facility] EOSINOPHILS % 2.0 % 03/31/2024 3:15 PM [facility] BASOPHILS % 0.3 % 03/31/2024 3:15 PM [facility] IMMATURE GRANS % 0.4 % 03/31/2024 3:15 PM [facility] ABS. NEUTROPHILS 5.44 1.60 - 8.30 x10'3/uL 03/31/2024 3:15 PM SHROUD LINE TIER [facility] ABS. LYMPHOCYTES 1.07 0.80 - 4.70 x10'3/uL 03/31/2024 3:15 PM SHROUD LINE TIER [facility] ABS. MONOCYTES 0.66 0.00 - 1.50 x10'3/uL 03/31/2024 3:15 PM SHROUD LINE TIER [facility] ABS. EOSINOPHILS 0.15 0.00 - 0.40 x10'3/uL 03/31/2024 3:15 PM SHROUD LINE TIER [facility] ABS. BASOPHILS 0.02 0.00 - 0.20 x10'3/uL 03/31/2024 3:15 PM SHROUD LINE TIER [facility] ABS. IMMATURE GRANULOCYTES 0.03 0.00 - 0.03 x10'3/uL 03/31/2024 3:15 PM SHROUD LINE TIER [facility] 03/31/2024 9:55 AM SHROUD LINE TIER us Sandi LYNCH LABORATORY Final Resul t [facility] [address] [place] [address], * (ABNORMAL) MG/PCCL UDS W CONF (03/31/2024 8:59 AM SHROUD LINE TIER) RESULT SUMMARY [facility] Comment: Prescribed Prescribed Not Prescribed Consistent Inconsistent Inconsistent Hydrocodone Tramadol PRESCRIBED DRUG 1 (U) Hydrocodone [facility] PRESCRIBED DRUG 2 (U) Tramadol [facility] FENTANYL SCREEN (U) NEGATIVE <0.5 ng/mL [facility] (U) NEGATIVE <10 ng/mL [facility] [place] DESMETHYLTRAMADOL (U) NEGATIVE <100 ng/mL [facility] [...] [facility] NOTE [facility] Comment: This drug testing is for medical treatment only. Analysis was performed as non-forensic testing and these results should be used only by healthcare providers to render diagnosis or treatment, or to monitor progress of medical conditions. LDT Notes: Confirmation tests were developed and their analytical performance characteristics have been determined by [employer]. It has not been cleared or approved by the FDA. This assay has been validated pursuant to the CLIA regulations and is used for clinical purposes. medMATCH(R) enables providers to identify if drug use is consistent or inconsistent with a corresponding prescribed medication(s) list. Healthcare Providers needing Interpretation assistance, please contact us at [phone] ( ) M-F, 8am to 10pm EST URINE SPECIMEN / Unknown 03/31/2024 8:59 AM SHROUD LINE TIER 03/31/2024 11:43 PM SHROUD LINE TIER Narrative Resulting Agency Comment Performing Organization Information: Site ID: [id number] Name: [facility] Address: [address] [place] [address] Director: [place] Ca Site ID: [id number] Name: [facility] Address: [address] [facility] [place] [address] Director: Velvet Juarez MD Sandi LYNCH URINE ORDERABLES Final Resu lt Performing Organization Address City/[facility]/ZIP Co de Phone Number [facility] [address] [facility] [place] [address], [facility] [place] [address] [place] [address] * IMAGE GENERIC (03/29/2024) Only the most recent of2 resultswithin the time period is included. Anatomical Region Laterality Modality Other 03/29/2024 Result [facility] Scanned SCANNING Final Resu lt * OUTSIDE LAB COVID-19 (03/23/2024) Only the most recent of2 resultswithin the time period is included. [facility] CORONAVIRUS SARS COV 2 PCR (RESP) NOT DETECTED NOT DETECTED [facility] 03/23/2024 [facility] Scanned SCANNING Final Resu lt [facility] * OUTSIDE PT/INR (SCAN ORDER) (03/23/2024) Only the most recent of2 resultswithin the time period is included. 03/23/2024 Result [facility] [facility] Scanned SCANNING Final Resu lt * (ABNORMAL) ALBUMIN/CREATININE RATIO, RANDOM URINE (02/05/2024 11:04 AM SHROUD LINE TIER) [facility] MICROALBUMIN (U) 635.8(H) <20 MG/L 02/05/20 3:47 PM SHROUD LINE TIER [facility] CREATININE RANDOM (U) 87.3 MG/DL 02/05/2024 3:47 PM SHROUD LINE TIER [facility] ALBUMIN/CREAT RATIO 728.3(H) <30 MG/G 02/05/2024 3:47 PM SHROUD LINE TIER [facility] URINE SPECIMEN / Unknown 02/05/2024 11:04 AM SHROUD LINE TIER Sandi LYNCH URINE ORDERABLES Final Resu lt Performing Organization Address City/[facility]/ZIP Co de Phone Number [facility] [address] [place] [address], * HEMOGLOBIN, GLYCOSYLATED (02/05/2024) Pathologist [facility] HGB A1C 6.5 % [facility] 02/05/2024 Sandi LYNCH LABORATORY Final Resul t Performing Organization Address [facility]/ZIP Co de Phone Number [facility] [address] [place] [address], [place] * (ABNORMAL) LIPID PANEL (05/13/2023 6:00 AM CDT) Pathologist [facility] CHOLESTEROL 87 <200 MG/DL 05/13/2023 7:18 AM CDT [facility] TRIGLYCERIDES 213(H) <150 MG/DL 05/13/2023 7:18 AM CDT [facility] HDL 24(L) >40.0 MG/DL 05/13/2023 7:18 AM CDT [facility] LDL (CALCULATED) 20 <100 MG/DL 05/13/2023 7:18 AM CDT [facility] NON HDL CHOLESTEROL 63 <130 MG/DL 05/13/2023 7:18 AM CDT [facility] CHOL/HDL RATIO 3.6 0.0 - 4.5 05/13/2023 7:18 AM CDT [facility] VLDL CALCULATION 43 5 - 55 MG/DL 05/13/2023 7:18 AM CDT [facility] LIPID INTERPRETATION 05/13/2023 7:18 AM CDT [facility] Comment: [facility] CONCENSUS REPORT RECOMMENDATIONS: ADULT CHILD LOW RISK: CHOLESTEROL <200 <170 TRIGLYCERIDE <150 --- HDL >=60 --- LDL <100 <110 BORDERLINE: CHOLESTEROL 200-239 170-199 TRIGLYCERIDE 150-199 --- HDL 40-59 --- LDL 100-159 110-129 HIGH RISK: CHOLESTEROL >=240 >=200 TRIGLYCERIDE >=200 --- HDL <40 --- LDL >=160 >=130 05/13/2023 6:00 AM CDT Ayanna Bellamy MD LABORATORY Final Re sult Performing Organization Address [facility]/ZIP Co de Phone Number [facility] [address] [place] [address], * DIABETIC RETINOPATHY EXAM (NEGATIVE) (04/20/2023) [facility] Scanned SCANNING Final Resu lt Performing Organization Address [facility] Co de Phone Number [facility] ONBASE * HEPATITIS C ANTIBODY W/RFX TO [...] a test for HCV RNA (test code 80981) is suggested. For additional information please refer to http://education.[employer]edcamp/faq/ODN02u7 (This link is being provided for informational/ educational purposes only.) 06/28/2021 11:2 2 AM CDT 06/29/2021 10:18 AM CDT [facility] Final Resul t [facility] [address] [place] [address] * CT CHEST WO CONT LOW DOSE [...] As above. Thank you for choosing the [facility]'s Lung Screening Program. Referred By: NICK HENDERSON [...] in the left lung base posteriorly. Implanted signal operator linguist device within the left chest subcutaneous tissues. [...] As above. Thank you for choosing the [facility] Lung ScreeningProgram. Referred By: NICK HENDERSON Interpreted [...] 11:13 PM 05/01/2017 6:00 PM Care Teams Professor Of Exercise Science Relationship Specialty Start Date End Date Sandi Alfaro APNP Family & [place] [address] PCP - General ADVANCED PRACTICE SENIOR RESEARCH MANAGER 04/28/17 Cheryl Huston manager research development (Ambulatory) REGISTERED NURSE 03/23/19
--- OUTSIDE RECORDS SUMMARY | 2024-05-01 18:01 | XMS_ITS | Encounter Summary ---
Author Organization [facility] - [facility] Address [address] [place] [address] Care Team Providers Care Storage Management Architect Name Role Phone Sandi Alfaro Primary Care Provider [phone] Sandi Alfaro Unavailable [phone] Cheryl Huston RN Unavailable Unavailable Encounter Details Date Type Department Care Team (Late st Contact Info) Description 05/13/2021 Health Outcomes Sciences Message Enc [facility] Medical Group Multispecialty Care - [facility] [address] [facility] [place] [address] [facility], [facility] Provider CPAP Social History Tobacco Use Types Packs/Day Years Used Date Smoking Tobacco: Every Day Cigarettes 0.3 40 Smokeless Tobacco: Never Comments:want to quit but gary s alot of stress right [id number] smoking about 3-4 cigaretts a day Alcohol Use Standard Drinks/Week Comments Yes 0 (1 standard drink = 0.6 oz pur e alcohol) very rarely 6 beers/year PHQ-2 Answer Date Recorded PHQ-2 Score - If the patient scores above 3, please move on to questions 3-9 4 01/23/2021 Sex and Gender Information Value Date Recorded Sex Assigned at Male 03/31/2024 8:58 AM DRAFTING CLERK Legal Sex Male 8:01 PM CDT Gender Identity Not on file Sexual Orientation Not on file COVID-19 Exposure Response Date Recorded In the last 10 days, have yo u been in contact with someone who was confirmed or suspected to have Coronavirus/COVID-19? No / Unsure 05/14/2021 8:16 AM CDT documented as of this encounter Plan of Treatment Not on file documented as of this encounter Visit Diagnoses Not on filedocumented in this encounter Additional Health Concerns Infection Onset Date Last Indicated Resolved Time COVID-19 Rule Out 05/12/2023 05/12/2023 05/13/2023 12:01 AM CDT Influenza - Seasonal 05/14/2023 05/14/2023 024 12:32 AM CDT Assessment Noted Time PHQ-9 Depression Total Score: 7 01/24/20 21 1:37 PM DRAFTING CLERK documented as of this encounter Care Teams Storage Management Architect Relationship Specialty Start Date End Date Sandi Alfaro APNP Family & Internal Medicine [address] [address] PCP - General ADVANCED PRACTICE MILK HOUSE WORKER 04/28/17 Sandi Alfaro APNP [address] [place] [id number] PCP - Med Group - [facility] Attributed Provider 03/02/15 03/01/22 Cheryl Huston, enterprise analyst (Ambulatory) REGISTERED NURSE 03/23/19 documented as of this encounter
--- OUTSIDE RECORDS SUMMARY | 2024-05-01 18:01 | XMS_ITS | Encounter Summary ---
Author Organization [facility] Address [address] [place] [address] Care Team Providers Care Lap Machine Tender Name Role Phone aSndi Alfaro Primary Care Provider [phone] Cheryl Huston RN Unavailable Unavailable Encounter Details Date Type Department Care Team (Late st Contact Info) Description 08/27/2022 Crowd Analyzerhart Message Enc [facility] - [place] [id number] [place], [place] [id number] [place], [facility] Provider Air Quality Message Social History Tobacco [...] Sex Assigned at Male 03/31/2024 8:58 AM MASS SPECTROMETRY SPECIALIST Legal Sex Male 8:01 PM CDT [...] documented as of this encounter Care Teams Lap Machine Tender Relationship Specialty Start Date End Date Sandi Alfaro APNP Family & Internal Medicine [address] [address] PCP - General ADVANCED PRACTICE CHIROPRACTIC NEUROLOGIST 04/28/17 Cheryl Huston, logistics analytics manager (Ambulatory) REGISTERED NURSE 03/23/19 documented as of this encounter
--- OUTSIDE RECORDS SUMMARY | 2024-05-01 18:01 | XMS_ITS | Patient Health Summary ---
Author Organization [facility] Address [address] [place] [address] Care Team Providers Care Director Of Coding Name Role Phone Sandi Alfaro BODY AND FRAME TECHNICIAN-SPRAY DYER Primary Care Provider Note from [facility],non-owned Affiliates and Associated Physician Practices is amultiple site organization consisting of ambulatory clinics and hospital sitesin [place], [place], [place] and [place]. This disclosure is being madepursuant to the Care Everywhere program and may not contain all information available regarding this patient. Last updated 17.[facility] Allergies No known active allergies Medications [...] of5 resultswithin the time period is included. [facility] [address] Glucose WB/POC 131(H) 70 - 115 mg/dL 05/28/2018 6:57 AM CDT [facility] Specimen Type Arterial/C apillary 05/28/2018 6:57 AM CDT [facility] Blood BLOOD SPECIMEN / Unknown 05/28/2018 6:52 AM CDT 05/28/2018 6:57 AM CDT [facility] - 05/28/2018 6:57 AM CDT INSTRUMENTATION AND CONTROL TECHNICIAN: MARIZOL BOOKER Erick Vera MD LAB - POINT OF CARE ORDERABLES Performing Organization Address City/State/[facility] Co de Phone Number [address] [phone] * PLATELET ANTIBODY DRUG DEPENDENT (05/28/2018 4:14 AM CDT) [facility] [address] Patient Serum Without Drug Comment 06/16/2018 4:11 PM CDT [facility] ([facility]) Comment:Reference lab report sent via fax. Blood BLOOD SPECIMEN / Unknown Lab Venipuncture / Unknown 05/28/2018 4:14 AM CDT 05/28/2018 4:[address] [facility] - 06/16/2018 4:11 PM CDT Performed at: [facility] Informed [facility] [place] [address] [place] [address] [place] [address] [phone] Garland Machine Operator: Husam Reyes MD, Phone: [phone] Tone Brower MD LAB - COAGULATION OR DERABLES [facility] ([facility]) [address] [place] [address], [facility] * (ABNORMAL) CBC W/O DIFFERENTIAL (05/27/2018 11:[address] [facility]) Only the most recent of4 resultswithin the time period is included. WBC 7.1 3.5 - 10.5 10 3/uL 05/28/2018 12:01 AM [facility] RBC 4.15(L) 4.30 - 5.70 10 6/uL 05/28/2018 12:01 AM [facility] Hemoglobin 12.8(L) 13.5 - 17.5 g/dL 05/28/2018 12:01 AM [facility] Hematocrit 37.1(L) 39.0 - 50.0 % 05/28/2018 12:01 AM [facility] MCV 89.4 81.0 - 97.0 fL 05/28/2018 12:01 AM [facility] MCH 30.8 28.0 - 34.0 pg 05/28/2018 12:01 AM [facility] MCHC 34.5 32.0 - 36.0 g/dL 05/28/2018 12:01 AM [facility] Platelet Count 135(L) 150 - 400 10 3/uL 05/28/2018 12:01 AM [facility] RDW-SD 44.0 36.0 - 50.0 fL 05/28/2018 12:01 AM [facility] RDW-CV 13.5 11.2 - 14.8 % 05/28/2018 12:01 AM [facility] MPV 11.4 9.3 - 12.8 fL 05/28/2018 12:01 AM [facility] nRBC Absolute 0.00 0 10 3/uL 05/28/2018 12:01 AM [facility] nRBC Auto 0.0 0 /100 WBC 05/28/2018 12:01 AM [facility] Blood BLOOD SPECIMEN / Unknown Lab Venipuncture / Unknown 05/27/2018 11:30 PM CDT 05/27/2018 11:55 PM CDT Mehul Floyd MD LAB - HEMATOLOGY ORD HARSHA [facility] [address] [phone] * BASIC METABOLIC PANEL (CALCIUM TOTAL) (05/27/2018 11:30 PM CDT) Only the most recent of5 resultswithin the time period is included. BUN 17 7 - 26 mg/dL 05/28/2018 12:17 AM [facility] Creatinine 1.1 0.6 - 1.2 mg/dL 05/28/2018 12:17 AM [facility] Sodium 137 136 - 145 mmol/L 05/28/2018 12:17 AM [facility] Potassium 4.0 3.5 - 4.5 mmol/L 05/28/2018 12:17 AM [facility] Chloride 103 98 - 107 mmol/L 05/28/2018 12:17 AM [facility] CO2 24 22 - 29 mmol/L 05/28/2018 12:17 AM [facility] Glucose 102 70 - 115 mg/dL 05/28/2018 12:17 AM [facility] Calcium 9.4 8.4 - 10.2 mg/dL 05/28/2018 12:17 AM [facility] Anion Gap 14 8 - 18 05/28/2018 12:17 AM [facility] BUN/Creatinine Ratio 15 7 - 23 05/28/2018 12:17 AM [facility] Osmolality Calculated 286 270 - 300 mOsm/kg 05/28/2018 12:17 AM [facility] eGFR >60 >60 mL/min/1.7 3 m2 05/28/2018 12:17 AM [facility] Blood BLOOD SPECIMEN / Unknown Lab Venipuncture / Unknown 05/27/2018 11:30 PM CDT 05/27/2018 11:55 PM CDT Mehul Floyd MD LAB - CHEMISTRY LORENZA BULLARD [address] [phone] * PHOSPHORUS BLOOD (05/27/2018 11:30 PM CDT) Only the most recent of4 resultswithin the time period is included. Phosphorus 3.2 2.3 - 4.7 mg/dL 05/28/2018 12:17 AM CDT [facility] Blood BLOOD SPECIMEN / Unknown Lab Venipuncture / Unknown 05/27/2018 11:30 PM CDT 05/27/2018 11:55 PM CDT Mehul Floyd MD LAB - CHEMISTRY LORENZA BULLARD Performing Organization Address [facility] Co de Phone Number [address] [phone] * MAGNESIUM BLOOD (05/27/2018 11:30 PM CDT) Only the most recent of4 resultswithin the time period is included. Magnesium 1.7 1.6 - 2.6 mg/dL 05/28/2018 12:17 AM CDT [facility] Blood BLOOD SPECIMEN / Unknown Lab Venipuncture / Unknown 05/27/2018 11:30 PM CDT 05/27/2018 11:55 PM CDT Mehul Floyd MD LAB - CHEMISTRY LORENZA BULLARD Performing Organization Address [facility] Co de Phone Number [address] [phone] * MRI BRAIN WO CONTRAST (05/27/2018 12:51 [...] resultswithin the time period is included. Pathologist [facility] Troponin I <0.010 <0.032 ng/mL 05/27/2018 9:02 AM CDT [facility] Blood BLOOD SPECIMEN / Unknown Venipuncture / Unknown 05/27/2018 8:28 AM CDT 05/27/2018 8:28 AM CDT Mehul Floyd MD LAB - CHEMISTRY ORDKristal BULLARD Performing Organization Address City/[facility]/ZIP Co de Phone Number [address] [phone] * HIV-1 HIV-2 ANTIGEN/ANTIBODY (05/26/2018 4:21 PM CDT) [facility] HIV Antigen/Antibod y 1 & 2 Non-reacti ve Non-react kendell 05/26/2018 5:12 PM CDT [facility] Comment: Neither HIV-1 p24 Antigen nor HIV-1/HIV-2 Antibodies are detected. Blood BLOOD SPECIMEN / Unknown Venipuncture / Unknown 05/26/2018 4:21 PM CDT 05/26/2018 4:26 PM CDT Jim Ann MD LAB - HEMATOLOGY ORD HARSHA [address] [phone] * HEPATITIS C AB SCREEN RFLX NAAT QUANT (05/26/2018 4:21 PM CDT) Pathologist [facility] Hepatitis C Antibody Non-react kendell Non-reac tive [...] Ann MD LAB - CHEMISTRY LORENZA BULLARD [facility] Organization Address City/State/ZIP Co de Phone Number [facility] [address] [place] [address], [facility] [phone] * DRUG SCREEN TOX URINE PANEL (05/26/2018 3:09 PM CDT) [facility] Amphetamines Screen Urine Negative Negative: < 1000 ng/mL 05/26/2018 3:23 PM CDT [facility] Barbiturates Screen Urine Negative Negative: < 200 ng/mL 05/26/2018 3:23 PM CDT [facility] Benzodiazepine Screen Urine Negative Negative: < 200 ng/mL 05/26/2018 3:23 PM CDT [facility] Opiates Urine Negative Negative: < 300 ng/mL 05/26/2018 3:23 PM CDT [facility] Cocaine Metabolites Urine Negative Negative: < 300 ng/mL 05/26/2018 3:23 PM CDT [facility] Phencyclidine Screen Urine Negative Negative: < 25 ng/ml 05/26/2018 3:23 PM T [facility] Cannabinoids Screen Urine Negative Negative: <50 ng/mL 05/26/2018 3:23 PM CDT [facility] Methadone Screen Urine Negative Negative: < 300 ng/mL 05/26/2018 3:23 PM CDT [facility] Urine URINE / Unknown Collection / Unknown 05/26/2018 3:09 PM CDT 05/26/2018 3:09 PM CDT Narrative [facility] - 05/26/2018 3:23 PM CDT The Urine Toxicology Screening Panel does not screen for Propoxyphene, Meprobamate, Carisoprodol, Trazodone, [id number]-izjlmqn medications and/or volatiles (Acetone, Isopropanol, Methanol or Ethylene Glycol). Ethanol, Salicylate, Acetaminophen, Tricyclic Antidepressants and several therapeutic drugs may be individually assayed in serum or plasma specimen. Toxicology testing by the [facility] is an aid to medical diagnosis and treatment of patients. No documented chain of custody was maintained. Results are intended to be used for clinical purposes only. Mehul Floyd MD LAB - URINE CHEMISTR Y ORDERABLES Performing Organization Address City/[facility]/ZIP Co de Phone Number [facility] [address] [phone] * EKG 12-LEAD (05/26/2018 2:35 PM CDT) Only the most recent of3 resultswithin the time period is included. Ventricular Rate 78 BPM [facility] Atrial Rate 78 BPM [facility] P-R Interval 152 ms [facility] QRS Duration ms 96 ms [facility] Q-T Interval ms 422 ms [facility] QTC Calculation (Bezet) 481 ms [facility] Calculated P [place] 47 degrees [facility] Calculated R [place] 2 degrees [facility] Calculated T [place] 36 degrees [facility] Interpretation EKG NORMAL SINUS RHYTHM INCOMPLETE RIGHT BUNDLE BRANCH BLOCK PROLONGED QT ABNORMAL ECG WHEN COMPARED WITH ECG OF 20-AUG-2016 05:38, NO SIGNIFICANT CHANGE WAS FOUND Confirmed by Max INGRAM, DEMARCUS ([id number]), map editor Jax Colmenares ([id number]) on 06/09/2018 10:06:25 PM [facility] 05/26/2018 2:35 PM CDT 06/09/2018 10:06 PM CDT Ruiz Chávez MD ECG ORDERABLES Performing Organization Address [facility] Co de Phone Number [facility] * TYPE + SCREEN PANEL (05/26/2018 2:00 PM CDT) Only the most recent of2 resultswithin the time period is included. [facility] [address] [facility] Antibody Screen NEG 9 3:08 PM CDT [facility] ABO Rh A POS 05/26/2018 3:08 PM CDT [facility] Blood Bank BLOOD SPECIMEN / Unknown Venipuncture / Unknown 05/26/2018 2:00 PM CDT 05/26/2018 2:13 PM CDT Ruiz Chávez MD LAB - BLOOD BANK ORD ERABLES Performing Organization Address [facility]/ZIP Co de Phone Number [facility] [address] * PT-INR [facility] (05/26/2018 1:59 PM CDT) Only the most recent of2 resultswithin the time period is included. PT 12.8 12.1 - 14.8 Seconds 05/26/2018 2:14 PM CDT [facility] INR 1.0 See Comment 05/26/2018 2:14 PM CDT [facility] Comment: The suggested therapeutic range for standard coumadin (warfarin) therapy is an INR of 2.0-3.0. For high-risk patients (Mechanical Mitral Valve Prosthesis, etc.), the suggested prophylactic therapeutic range is an INR of 2.5-3.5. Blood BLOOD SPECIMEN / Unknown Venipuncture / Unknown 05/26/2018 1:59 PM CDT 05/26/2018 2:05 PM CDT Ruiz Chávez MD LAB - COAGULATION OR DERABLES Performing Organization Address [facility] Co de Phone Number [facility] [address] [phone] * (ABNORMAL) HEMOGLOBIN A1C (05/26/2018 1:59 PM [...] Equal to or greater than 6.5% Reference: [place] [employer] Standards of Care in Diabetes -2014 In patients 70 years and older consider HbA1c target range of 7.0-7.5% Reference: Diabetes Mellitus in Older People: Position Statement on behalf of the International Association of Gerontology and Geriatrics (IAGG), the Diabetes Working Republican for Older People (EDWPOP), and the International Task Force of Experts in Diabetes. Anil Irvin et al. J [place] [employer] Association. 2012 Test results diagnostic of diabetes should be repeated for confirmation. The Sebia Capillary 2 assay for the measurement of HbA1c is a National Glycohemoglobin Standardization Program (NGSP)certified method. Blood BLOOD SPECIMEN / Unknown Venipuncture / Unknown 05/26/2018 1:59 PM CDT 05/26/2018 2:19 PM CDT Mehul Floyd MD LAB - CHEMISTRY LORENZA BULLARD [facility] Organization Address City/State/ZIP Co de Phone Number [address] [phone] * (ABNORMAL) CBC W AUTO DIFFERENTIAL (05/26/2018 1:59 PM CDT) Only the most recent of3 resultswithin the time period is included. WBC 8.0 3.5 - 10.5 10 3/uL 05/26/2018 2:08 PM [facility] RBC 4.70 4.30 - 5.70 10 6/uL 05/26/2018 2:08 PM [facility] Hemoglobin 14.3 13.5 - 17.5 g/dL 05/26/2018 2:08 PM [facility] Hematocrit 42.0 39.0 - 50.0 % 05/26/2018 2:08 PM [facility] MCV 89.4 81.0 - 97.0 fL 05/26/2018 2:08 PM [facility] MCH 30.4 28.0 - 34.0 pg 05/26/2018 2:08 PM [facility] MCHC 34.0 32.0 - 36.0 g/dL 05/26/2018 2:08 PM [facility] Platelet Count 158 150 - 400 10 3/uL 05/26/2018 2:08 PM [facility] RDW-SD 44.7 36.0 - 50.0 fL 05/26/2018 2:08 PM [facility] RDW-CV 13.7 11.2 - 14.8 % 05/26/2018 2:08 PM [facility] MPV 10.9 9.3 - 12.8 fL 05/26/2018 2:08 PM [facility] nRBC Absolute 0.00 0 10 3/uL 05/26/2018 2:08 PM [facility] nRBC Auto 0.0 0 /100 WBC 05/26/2018 2:08 PM [facility] Neutrophils % 69.0 35.0 - 70.0 % 05/26/2018 2:08 PM [facility] Lymphocytes % 16.7(L) 19.7 - 55.1 % 05/26/2018 2:08 PM [facility] Monocytes % 9.7 3.0 - 15.0 % 05/26/2018 2:08 PM [facility] Eosinophils % 4.1 0.0 - 6.0 % 05/26/2018 2:08 PM [facility] Basophil % 0.1 0.0 - 1.5 % 05/26/2018 2:08 PM [facility] Neutrophils Absolute 5.5 1.6 - 7.0 10 3/uL 05/26/2018 2:08 PM [facility] Lymphocyte Absolute 1.3 0.8 - 2.9 10 3/uL 05/26/2018 2:08 PM [facility] Monocytes Absolute 0.78(H) 0.14 - 0.66 10 3/uL 05/26/2018 2:08 PM [facility] Eosinophils Absolute 0.33 0.00 - 0.45 10 3/uL 05/26/2018 2:08 PM [facility] Basophils Absolute 0.01 0.00 - 0.06 10 3/uL 05/26/2018 2:08 PM [facility] Immature Granulocytes % 0.4 0.0 - 1.0 % 05/26/2018 2:08 PM [facility] Blood BLOOD SPECIMEN / Unknown Venipuncture / Unknown 05/26/2018 1:59 PM CDT 05/26/2018 2:05 PM CDT Ruiz Chávez MD LAB - HEMATOLOGY ORD ERABLES [facility] [address] [phone] * (ABNORMAL) COMPREHENSIVE METABOLIC PANEL (05/26/2018 1:59 PM CDT) BUN 25 7 - 26 mg/dL 05/26/2018 2:23 PM [facility] Creatinine 1.1 0.6 - 1.2 mg/dL 05/26/2018 2:23 PM [facility] Sodium 138 136 - 145 mmol/L 05/26/2018 2:23 PM [facility] Potassium 4.1 3.5 - 4.5 mmol/L 05/26/2018 2:23 PM [facility] Chloride 101 98 - 107 mmol/L 05/26/2018 2:23 PM [facility] CO2 26 22 - 29 mmol/L 05/26/2018 2:23 PM [facility] Glucose 109 70 - 115 mg/dL 05/26/2018 2:23 PM [facility] Calcium 9.9 8.4 - 10.2 mg/dL 05/26/2018 2:23 PM [facility] Protein Total 7.8 6.0 - 8.3 g/dL 05/26/2018 2:23 PM [facility] Albumin 4.0 3.4 - 5.0 g/dL 05/26/2018 2:23 PM [facility] Bilirubin Total 0.8 0.2 - 1.2 mg/dL 05/26/2018 2:23 PM [facility] Alkaline Phosphatase 57 40 - 150 Units/L 05/26/2018 2:23 PM [facility] ALT 56(H) 0 - 55 Units/L 05/26/2018 2:23 PM [facility] AST 44(H) 5 - 34 Units/L 05/26/2018 2:23 PM [facility] Anion Gap 15 8 - 18 05/26/2018 2:23 PM [facility] BUN/Creatinine Ratio 23 7 - 23 05/26/2018 2:23 PM T [facility] Osmolality Calculated 291 270 - 300 mOsm/kg 05/26/2018 2:23 PM [facility] Albumin/Globulin Ratio 1.1 1.1 - 2.3 05/26/2018 2:23 PM [facility] eGFR >60 >60 mL/min/1.7 3 m2 05/26/2018 2:23 PM [facility] Blood BLOOD SPECIMEN / Unknown Venipuncture / Unknown 05/26/2018 1:59 PM CDT 05/26/2018 2:05 PM CDT Ruiz Chávez MD LAB - CHEMISTRY LORENZA BULLARD [facility] Organization Address City/State/ZIP Co de Phone Number [facility] [address] [place] [address] * (ABNORMAL) LIPID PROFILE (05/26/2018 1:59 PM CDT) Only the most recent of2 resultswithin the time period is included. Cholesterol Total 125 <200 mg/dL 05/26/2018 2:46 PM [facility] HDL 26(L) >40 mg/dL 05/26/2018 2:46 PM [facility] Comment: ATP III Classification of HDL Cholesterol: <40 mg/dL: Considered a major risk factor. >60 mg/dL: Considered a negative risk factor. LDL Calculated 38 <100 mg/dL 05/26/2018 2:46 PM [facility] Comment: ATP III Classification of LDL Cholesterol: <100 mg/dL: Optimal 100 - 129 mg/dL: Near Optimal/Above Optimal 130 - 159 mg/dL: Borderline High 160 - 189 mg/dL: High >190 mg/dL: Very High Triglycerides 307(H) <150 mg/dL 05/26/2018 2:46 PM [facility] Comment: ATP III Classification of Triglycerides: <150 mg/dL: Normal 150 - 199 mg/dL: Borderline High 200 - 400 mg/dL: High >500 mg/dL: Very High Blood BLOOD SPECIMEN / Unknown Venipuncture / Unknown 05/26/2018 1:59 PM CDT 05/26/2018 2:19 PM CDT Mehul Floyd MD LAB - CHEMISTRY LORENZA BULLARD [facility] Organization Address City/State/ZIP Co de Phone Number [address] [phone] * CT ANGIO BRAIN NECK STROKE (05/26/2018 [...] stenosis. Report dictated by Shaun Garland MD (certified residential medication aide). I, Dr. YOSELYN MURILLO have personally reviewed [...] Outside hospital CT head dated 05/26/2018 from [facility], CT head dated 05/19/2018, MRI [...] the intracranial vertebrals, basilar artery, and the nurse's assistant appear unremarkable. CTA NECK: Noted normal variant [...] Outside hospital CT head dated 05/26/2018 from [facility], CT head dated 05/19/2018, MRI [...] circulation, the intracranial vertebrals, basilarartery, and the nurse's assistant appear unremarkable. CTA NECK: Noted normal variant [...] vertebralstenosis. Report dictated by Shaun Garland MD (certified residential medication aide). Dr. YOSELYN Roman have personally reviewed and [...] stenosis. Report dictated by Shaun Garland MD (certified residential medication aide). Dr. YOSELYN Roman have personally reviewed and [...] Outside hospital CT head dated 05/26/2018 from [facility], CT head dated 05/19/2018, MRI [...] the intracranial vertebrals, basilar artery, and the nurse's assistant appear unremarkable. CTA NECK: Noted normal variant [...] Outside hospital CT head dated 05/26/2018 from [facility], CT head dated 05/19/2018, MRI [...] circulation, the intracranial vertebrals, basilarartery, and the nurse's assistant appear unremarkable. CTA NECK: Noted normal variant [...] vertebralstenosis. Report dictated by Shaun Garland MD (certified residential medication aide). I, Dr. YOSELYN MURILLO have personally reviewed and interpreted this examination/study. This report was electronically signed by YOSELYN MURILLO on 05/26/2018 2:09 PM . Ruiz Chávez MD CT ORDERABLES * (ABNORMAL) GLUCOSE ACCUCHECK (08/21/2016 12:30 PM CDT) Only the most recent of6 resultswithin the time period is included. Glucose, Fingerstick 154(H) 70-115mg/d L mg/dL LOREN NUNEZ) Comment:Lithographers Printer: YUNG RANDI ILYA 08/21/2016 12:3 0 PM CDT Gera Magallon MD LAB - CHEMISTRY LORENZA BULLARD [facility] Organization Address City/State/ZIP Co de Phone Number [...] acute fracture is identified. Procedure Note Rebecca Lnid MD - 05/29/2017 EXAMINATION: Computed tomography (CT) [...] Bishop Walker MD [facility] Organization Address City/State/ZIP Co de Phone Number [address] [phone] * DRUG ABUSE PANEL 10-20+ETHANOL URINE NO [...] not screen for Propoxyphene, Meprobamate, Carisoprodol, Trazodone, ncdv-fis-psqqixc medications and/or volatiles (Acetone, Isopropanol, Methanol or Ethylene Glycol). Ethanol, Salicylate, Acetaminophen, Tricyclic Antidepressants and several therapeutic drugs may be individually assayed in serum or plasma specimen. Toxicology testing by the [facility] is an aid to medical diagnosis and treatment of patients. No documented chain of custody was maintained. Results are intended to be used for clinical purposes only. Bishop Walker MD LAB - URINE CHEMISTR Y ORDERABLES Performing Organization Address City/[facility]/ZIP Co de Phone Number [address] [phone] * (ABNORMAL) HEPATIC FUNCTION PANEL (08/20/2016 5:28 AM CDT) Protein Total 6.8 6.0 - 8.3 g/dL [facility] Albumin 3.5 3.4 - 5.0 g/dL [...] [facility]/ZIP Co de Phone Number [address] [phone] * ECHO W DOPPLER AND COLOR FLOW [...] Walker MD LAB - COAGULATION OR DERABLES [address] [phone] * CULTURE URINE (10/19/2013 11:31 AM CDT) [...] [facility] - 10/21/2013 3:11 PM CDT EricSpecalexandrian#[id number] Eric Loc//Bed: 3 [facility]/316/02 CLN CATCH U @ CHRISTIANNE DATE was changed from 10/18/13 to 10/19/13 @ by DELICIA. Historical Provider LAB - MICROBIOLOG Y ORDERABLES [address] [phone] Care Teams Director Of Coding Relationship Specialty Start Date End Date Sandi Alfaro, BODY AND FRAME TECHNICIAN-SPRAY DYER [address] [place] [id number] PCP - General 08/27/21
--- OUTSIDE RECORDS SUMMARY | 2024-05-01 18:01 | XMS_ITS ---
Author Organization [facility] Address [address] [place], [place] [address] Care Team Providers Care Weight Analyst Name Role Phone PIETER WALSH Unavailable [phone] Sandi Alfaro Unavailable Unavailable REASON FOR VISIT [...] 10 MG/ML Topical Cream [Lotrisone] *Reorder from [employer] for eRx and Interacti 7 Active betamethasone 0.5 MG/ML / clotrimazole 10 MG/ML Topical Cream CUTANEOUS betamethasone 0.5 MG/ML / clotrimazole 10 MG/ML Topical CreamOriginal Medicationbetamethasone 0.5 MG/ML / clotrimazole 10 MG/ML Topical Cream *Reorder from [employer] for eRx and Interaction Alerts* 7 Active clobetasol propionate 0.0005 MG/MG Topical Ointment [Temovate] CUTANEOUS clobetasol propionate 0.0005 MG/MG Topical Ointment [Temovate]Original Medicationclobetasol propionate 0.0005 MG/MG Topical Ointment [Temovate] *Reorder from [employer] for eRx and Interaction Alerts* 7 Active clotrimazole 10 MG/ML Topical Cream CUTANEOUS clotrimazole 10 MG/ML Topical CreamOriginal Medicationclotrimazole 10 MG/ML Topical Cream *Reorder from [employer] for eRx and Interaction Alerts* 7 Active Augmented betamethasone 0.5 MG/ML Topical Cream CUTANEOUS Augmented betamethasone 0.5 MG/ML Topical CreamOriginal MedicationAugmented betamethasone 0.5 MG/ML Topical Cream *Reorder from [employer] for eRx and Interaction Alerts* 7 Active Encounters Encounter Location Date Provider Diagnosis [facility] [place] [address] [place], [place] [address] 01/25/2024 PIETER LATONYAK Tinea unguium B35.1 ; Pain in right toe(s) M79.674 ; Pain in left toe(s) M79.675 ; Atherosclerosis of [place] arteries of extremities with intermittent claudication, bilateral [...] toe(s) (ICD-10 - M79.675) 01/25/2024 Atherosclerosis of [place] arteries of extremities with intermittent claudication, bilateral [...] problems develop. Provider Name:PIETER WALSH, 08:10:00 AM, [address], [address], [id number], Progress Notes * KLAUDIA HALEY BDOB:[birth year] (63 yo M)Acc No.[id number]:01/25/2024 Patient: KLAUDIA DUONG B Provider: Kristal Walsh DPM :1960 A ge:63 Y S ex:Male Date:01/25/2024 Address:[address] [place] [address] , [id number] Subjective: * Chief Complaints: * Mundo gonzales [...] seen by Dr. Alfaro was 01/2024., Initials [facility]. * Medical History: * Surgical History: * Hospitalization/Major Diagno stic Procedure: * Medications: T akingAugmented betamethasone 0.5 MG/ML Topical Cream CUTANEOUS , Notes to Pharmacist: Augmented betamethasone 0.5 MG/ML Topical CreamOriginal MedicationAugmented betamethasone 0.5 MG/ML Topical Cream *Reorder from [facility] for eRx and Interaction Alerts*betamethasone 0.5 MG/ML / clotrimazole 10 MG/ML Topical Cream CUTANEOUS , Notes to Pharmacist: betamethasone 0.5 MG/ML / clotrimazole 10 MG/ML Topical CreamOriginal Medicationbetamethasone 0.5 MG/ML / clotrimazole 10 MG/ML Topical Cream *Reorder from [facility] for eRx and Interaction Alerts*betamethasone 0.5 MG/ML / clotrimazole 10 MG/ML Topical Cream [Lotrisone] CUTANEOUS , Notes to Pharmacist: betamethasone 0.5 MG/ML / clotrimazole 10 MG/ML Topical Cream [Lotrisone]Original Medicationbetamethasone 0.5 MG/ML / clotrimazole 10 MG/ML Topical Cream [Lotrisone] *[facility] for eRx and Interacticlobetasol propionate 0.0005 MG/MG Topical Ointment [Temovate] CUTANEOUS , Notes to Pharmacist: clobetasol propionate 0.0005 MG/MG Topical Ointment [Temovate]Original Medicationclobetasol propionate 0.0005 MG/MG Topical Ointment [Temovate] *Reorder from [facility] for eRx and Interaction Alerts*clotrimazole 10 MG/ML Topical Cream CUTANEOUS , Notes to Pharmacist: clotrimazole 10 MG/ML Topical CreamOriginal Medicationclotrimazole 10 MG/ML Topical Cream *Reorder from [facility] for eRx and Interaction Alerts*Medication List reviewed and reconciled with the patientTaking Augmented betamethasone 0.5 MG/ML Topical Cream CUTANEOUS , Notes to Pharmacist: Augmented betamethasone 0.5 MG/ML Topical CreamOriginal MedicationAugmented betamethasone 0.5 MG/ML Topical Cream *Reorder from [facility] for eRx and Interaction Alerts*Taking betamethasone 0.5 MG/ML / clotrimazole 10 MG/ML Topical Cream CUTANEOUS , Notes to Pharmacist: betamethasone 0.5 MG/ML / clotrimazole 10 MG/ML Topical CreamOriginal Medicationbetamethasone 0.5 MG/ML / clotrimazole 10 MG/ML Topical Cream *Reorder from [facility] for eRx and Interaction Alerts*Taking betamethasone 0.5 MG/ML / clotrimazole 10 MG/ML Topical Cream [Lotrisone] CUTANEOUS , Notes to Pharmacist: betamethasone 0.5 MG/ML / clotrimazole 10 MG/ML Topical Cream [Lotrisone]Original Medicationbetamethasone 0.5 MG/ML / clotrimazole 10 MG/ML Topical Cream [Lotrisone] *Reorder from [facility] for eRx and InteractiTaking clobetasol propionate 0.0005 MG/MG Topical Ointment [Temovate] CUTANEOUS , Notes to Pharmacist: clobetasol propionate 0.0005 MG/MG Topical Ointment [Temovate]Original Medicationclobetasol propionate 0.0005 MG/MG Topical Ointment [Temovate] *Reorder from [facility] for eRx and Interaction Alerts*Taking clotrimazole 10 MG/ML Topical Cream CUTANEOUS , Notes to Pharmacist: clotrimazole 10 MG/ML Topical CreamOriginal Medicationclotrimazole 10 MG/ML Topical Cream *Reorder from [facility] for eRx and Interaction Alerts*Medication List reviewed [...] - M79.675 4 . A therosclerosis of [place] arteries of extremities with intermittent claudication, bilateral [...] Information: * Visit Code: * Procedure Codes: 01831 DEBRIDE NAIL, 6 OR MORE. Modifiers: Q8 * INVESTIGATOR Sign off status: Completed true * Provider: Kristal Walsh DPM Date: 03/26/2023 Generated for Michelle chi/Danielle/Nimesh on: 0 05/01/2024 06:01 PM FIRE INVESTIGATOR History and Physical Notes * HPI (History [...]
--- OUTSIDE RECORDS SUMMARY | 2024-05-01 18:01 | XMS_ITS ---
Author Organization [facility] Address [address] [place], [place] [address] Care Team Providers Care Chemical Supervisor Name Role Phone PIETER WALSH Unavailable [phone] Sandi Alfaro Unavailable Unavailable Allergies No Known [...] clotrimazole 10 MG/ML Topical Cream *Reorder from [employer] for eRx and Interaction Alerts* 7 Active betamethasone 0.5 MG/ML / clotrimazole 10 MG/ML Topical Cream [Lotrisone] CUTANEOUS betamethasone 0.5 MG/ML / clotrimazole 10 MG/ML Topical Cream [Lotrisone]Original Medicationbetamethasone 0.5 MG/ML / clotrimazole 10 MG/ML Topical Cream [Lotrisone] *Reorder from [employer] for eRx and Interacti 7 Active Augmented betamethasone 0.5 MG/ML Topical Cream CUTANEOUS Augmented betamethasone 0.5 MG/ML Topical CreamOriginal MedicationAugmented betamethasone 0.5 MG/ML Topical Cream *Reorder from [employer] for eRx and Interaction Alerts* 7 Active clobetasol propionate 0.0005 MG/MG Topical Ointment [Temovate] CUTANEOUS clobetasol propionate 0.0005 MG/MG Topical Ointment [Temovate]Original Medicationclobetasol propionate 0.0005 MG/MG Topical Ointment [Temovate] *Reorder from [facility] for eRx and Interaction Alerts* 7 Active clotrimazole 10 MG/ML Topical Cream CUTANEOUS clotrimazole 10 MG/ML Topical CreamOriginal Medicationclotrimazole 10 MG/ML Topical Cream *Reorder from [employer] for eRx and Interaction Alerts* 7 Active Encounters Encounter Location Date Provider Diagnosis [facility] [place] [address] [place], [place] [id number] 03/28/2024 PIETER SNOOK Tinea unguium B35.1 ; Pain in right toe(s) M79.674 ; Pain in left toe(s) M79.675 ; Atherosclerosis of [place] arteries of extremities with intermittent claudication, bilateral [...] toe(s) (ICD-10 - M79.675) 03/28/2024 Atherosclerosis of [place] arteries of extremities with intermittent claudication, bilateral [...] problems develop. Provider Name:PIETER WALSH, 08:10:00 AM, [address], [address], [id number], Progress Notes * SUDHASARA BACAITH BDOB:[birth year] (63 yo M)Acc No.[id number]:03/28/2024 Patient: KLAUDIA DUONG Provider: Kristal Walsh DPM :1960 A ge:63 Y S ex:Male Date:03/28/2024 Address:[address] [place] [address] [facility] Subjective: * Chief Complaints: * Mundo gonzales [...] betamethasone 0.5 MG/ML Topical Cream *Reorder from [employer] for eRx and Interaction Alerts*betamethasone 0.5 MG/ML / clotrimazole 10 MG/ML Topical Cream CUTANEOUS , Notes to Pharmacist: betamethasone 0.5 MG/ML / clotrimazole 10 MG/ML Topical CreamOriginal Medicationbetamethasone 0.5 MG/ML / clotrimazole 10 MG/ML Topical Cream *Reorder from [employer] for eRx and Interaction Alerts*betamethasone 0.5 MG/ML / clotrimazole 10 MG/ML Topical Cream [Lotrisone] CUTANEOUS , Notes to Pharmacist: betamethasone 0.5 MG/ML / clotrimazole 10 MG/ML Topical Cream [Lotrisone]Original Medicationbetamethasone 0.5 MG/ML / clotrimazole 10 MG/ML Topical Cream [Lotrisone] *Reorder from [employer] for eRx and Interacticlobetasol propionate 0.0005 MG/MG Topical Ointment [Temovate] CUTANEOUS , Notes to Pharmacist: clobetasol propionate 0.0005 MG/MG Topical Ointment [Temovate]Original Medicationclobetasol propionate 0.0005 MG/MG Topical Ointment [Temovate] *Reorder from [employer] for eRx and Interaction Alerts*clotrimazole 10 MG/ML Topical Cream CUTANEOUS , Notes to Pharmacist: clotrimazole 10 MG/ML Topical CreamOriginal Medicationclotrimazole 10 MG/ML Topical Cream *Reorder from [employer] for eRx and Interaction Alerts*Medication List reviewed and reconciled with the patientTaking Augmented betamethasone 0.5 MG/ML Topical Cream CUTANEOUS , Notes to Pharmacist: Augmented betamethasone 0.5 MG/ML Topical CreamOriginal MedicationAugmented betamethasone 0.5 MG/ML Topical Cream *Reorder from [facility] for eRx and Interaction Alerts*Taking betamethasone 0.5 MG/ML / clotrimazole 10 MG/ML Topical Cream CUTANEOUS , Notes to Pharmacist: betamethasone 0.5 MG/ML / clotrimazole 10 MG/ML Topical CreamOriginal Medicationbetamethasone 0.5 MG/ML / clotrimazole 10 MG/ML Topical Cream *Reorder from [facility] for eRx and Interaction Alerts*Taking betamethasone 0.5 MG/ML / clotrimazole 10 MG/ML Topical Cream [Lotrisone] CUTANEOUS , Notes to Pharmacist: betamethasone 0.5 MG/ML / clotrimazole 10 MG/ML Topical Cream [Lotrisone]Original Medicationbetamethasone 0.5 MG/ML / clotrimazole 10 MG/ML Topical Cream [Lotrisone] *Reorder from [facility] for eRx and InteractiTaking clobetasol propionate 0.0005 MG/MG Topical Ointment [Temovate] CUTANEOUS , Notes to Pharmacist: clobetasol propionate 0.0005 MG/MG Topical Ointment [Temovate]Original Medicationclobetasol propionate 0.0005 MG/MG Topical Ointment [Temovate] *Reorder from [facility] for eRx and Interaction Alerts*Taking clotrimazole 10 MG/ML Topical Cream CUTANEOUS , Notes to Pharmacist: clotrimazole 10 MG/ML Topical CreamOriginal Medicationclotrimazole 10 MG/ML Topical Cream *Reorder from [facility] for eRx and Interaction Alerts*Medication List [...] - M79.675 4 . A therosclerosis of [place] arteries of extremities with intermittent claudication, bilateral [...] Information: * Visit Code: * Procedure Codes: 76166 DEBRIDE NAIL, 6 OR MORE. Modifiers: Q8 * TUB MACHINE OPERATOR Sign off status: Completed true * Provider: Kristal Walsh DPM Date: 0 03/28/2024 Generated for Michelle chi/Danielle/Nimesh on: 0 05/01/2024 06:00 PM WASH TUB MACHINE OPERATOR History and Physical Notes * HPI (History [...]
--- OUTSIDE RECORDS SUMMARY | 2024-05-01 18:01 | XMS_ITS | Clinical Summary ---
Author Organization [facility] Address [address] [place] [address] Care Team Providers Care Crime Lab Analyst Name Role Phone Sandi Alfaro ROLLER PICKER-SIPHON OPERATOR Primary Care Provider Source Comments [facility],non-owned Affiliates and Associated Physician Practices is amultiple site organization consisting of ambulatory clinics and hospital sitesin [place], [place], [place] and [place]. This disclosure is being madepursuant to the Care Everywhere program and may not contain all information available regarding this patient. Last updated 17.[facility] Allergies No known active allergies Medications * [...] INFLUENZA VACCINE (#1) 2023 DEPRESSION SCREENING 03/02/2024 AAA SCREENING 2024 HEPATITIS C SCREENING Completed 05/26/2018 HIV SCREENING [...] HIV-1 HIV-2 ANTIGEN/ANTIBODY (05/26/2018 4:21 PM CDT) Pathologist [facility] HIV Antigen/Antibod y 1 & 2 Non-reacti ve Non-react kendell 05/26/2018 5:12 PM CDT [facility] Comment: Neither HIV-1 p24 Antigen nor HIV-1/HIV-2 Antibodies are detected. Blood BLOOD SPECIMEN / Unknown Venipuncture / Unknown 05/26/2018 4:21 PM CDT 05/26/2018 4:26 PM CDT Jim Ann MD LAB - HEMATOLOGY DEDE MCLEOD Performing Organization Address [facility]/ZIP Co de Phone Number [address] [phone] * HEPATITIS C AB SCREEN RFLX NAAT [...] - CHEMISTRY LORENZA BULLARD Performing Organization Address [facility]/[place] [address], [facility] [phone] from Last 3 Months or Most Recently Relevant to Health Maintenance Advance Directives * Full Code (Latest Code Status on File) Date Activated Date Inactivated Comments 05/26/2018 2:01 PM 05/28/2018 11:56 AM Care Teams Crime Lab Analyst Relationship Specialty Start Date End Date Sandi Alfaro, ELIEL-SIPHON OPERATOR [address] [place] [id number] PCP - General 08/27/21
--- OUTSIDE RECORDS SUMMARY | 2024-05-01 18:01 | XMS_ITS | Encounter Summary ---
Author Organization [facility] Healthcare Address [address] [place] [address] Care Team Providers Care Corporate Real Estate Manager Name Role Phone Sandi Alfaro Primary Care Provider + Reason for Visit * Reason Onset Date Comments NM stress test instructions 04/11/2024 Encounter Details Date Type Department Care Team (Late st Contact Info) Description 04/11/2024 Telephone [facility] Medical Group Cardiology [address] [facility] [address] [place] [address] Fernando Modi MD [address] [facility] [address] [place] [address] NM stress test instructions Social History Tobacco Use Types Packs/Day Years Used Date Smoking Tobacco: Some Days Cigarettes 0.3 15 Smokeless Tobacco: Never Alcohol Use Standard Drinks/Week Comments Yes 0 (1 standard drink = 0.6 oz pur e alcohol) Sex and Gender Information Value Date Recorded Sex Assigned at Not on file Legal Sex Male 3:15 AM EMPLOYMENT SECURITY OFFICER Gender Identity Male 09/03/2018 6:22 AM CDT Sexual Orientation Straight 09/03/2018 6: 22 AM CDT documented as of this encounter Miscellaneous Notes * Telephone Encounter - Harini Mann RN - 04/11/2024 10:04 AM EMPLOYMENT SECURITY OFFICER Instructions for upcoming stress test reviewed with pt. Pt verbalizes understanding. OYMENT SECURITY OFFICER * Telephone Encounter - Ilene Soni - 04/11/2024 9:58 AM CST Patient requesting a call back to go over NM stress test instructions. Please advise. Thank you. Contact [phone] OYMENT SECURITY OFFICER documented in this encounter Plan of Treatment Not on file documented as of this encounter Visit Diagnoses Not on filedocumented in this encounter Care Teams Corporate Real Estate Manager Relationship Specialty Start Date End Date Sandi Alfaro PA PCP - General Nurse Practitioner 08/21/17 documented as of this encounter
--- OUTSIDE RECORDS SUMMARY | 2024-05-01 18:01 | XMS_ITS | Patient Health Record ---
Author Organization [facility] Address [address] [place], [place] [address] Care Team Providers Care Choker Setter Name Role Phone PIETER WALSH Unavailable [phone] Sandi Alfaro Unavailable Unavailable Allergies No Known Allergies Reason For Referral No Information Medications Medication SIG (Take, Route, Frequency, Duration) Notes Start Date End Date Status betamethasone 0.5 MG/ML / clotrimazole 10 MG/ML Topical Cream CUTANEOUS betamethasone 0.5 MG/ML / clotrimazole 10 MG/ML Topical CreamOriginal Medicationbetamethasone 0.5 MG/ML / clotrimazole 10 MG/ML Topical Cream *Reorder from [employer] for eRx and Interaction Alerts* 7 Active betamethasone 0.5 MG/ML / clotrimazole 10 MG/ML Topical Cream [Lotrisone] CUTANEOUS betamethasone 0.5 MG/ML / clotrimazole 10 MG/ML Topical Cream [Lotrisone]Original Medicationbetamethasone 0.5 MG/ML / clotrimazole 10 MG/ML Topical Cream [Lotrisone] *Reorder from [employer] for eRx and Interacti 7 Active Augmented betamethasone 0.5 MG/ML Topical Cream CUTANEOUS Augmented betamethasone 0.5 MG/ML Topical CreamOriginal MedicationAugmented betamethasone 0.5 MG/ML Topical Cream *Reorder from [employer] for eRx and Interaction Alerts* 7 Active clobetasol propionate 0.0005 MG/MG Topical Ointment [Temovate] CUTANEOUS clobetasol propionate 0.0005 MG/MG Topical Ointment [Temovate]Original Medicationclobetasol propionate 0.0005 MG/MG Topical Ointment [Temovate] *Reorder from [facility] for eRx and Interaction Alerts* 7 Active clotrimazole 10 MG/ML Topical Cream CUTANEOUS clotrimazole 10 MG/ML Topical CreamOriginal Medicationclotrimazole 10 MG/ML Topical Cream *Reorder from [facility] for eRx and Interaction Alerts* 7 Active Immunizations Vaccine Route Administration Date Status Comme nts Influenza, live, intranasal Unknown 01/29/2023 Administ ered Vital Signs Height-cm 182.88 cm 06/01/2023 Weight-kg 149.69 kg 06/01/2023 Height 72.00 in 06/01/2023 Weight 330 lbs 06/01/2023 BMI 44.75 kg/m2 06/01/2023 Encounters Encounter Location Date Provider Diagnosis [facility] [place] [address] [place] [id number] 06/01/2023 PIETER SNOOK Tinea unguium B35.1 ; Pain in right toe(s) M79.674 ; Pain in left toe(s) M79.675 ; Atherosclerosis of [place] arteries of extremities with intermittent claudication, bilateral legs I70.213 and Type 2 diabetes mellitus with other circulatory complications E11.59 [facility] [place] [address] [place] [id number] 08/24/2023 PIETER SNOOK Tinea unguium B35.1 ; Pain in right toe(s) M79.674 ; Pain in left toe(s) M79.675 ; Atherosclerosis of [place] arteries of extremities with intermittent claudication, bilateral legs I70.213 and Type 2 diabetes mellitus with other circulatory complications E11.59 [facility] [place] [address] [place], [place] [id number] 08/31/2023 PIETER SNOOK Nondisplaced unspeci fied fracture of unspecified lesser toe(s), initial encounter for closed fracture S92.506A and Pain in left foot M79.672 [facility] [place] [address] [place] [id number] 09/14/2023 PIETER SNOOK Nondisplaced unspeci fied fracture of right lesser toe(s), subsequent encounter for fracture with routine healing S92.504D and Pain in left toe(s) M79.675 [facility] [place] [address] [place] [id number] 11/09/2023 PIETER SNOOK Tinea unguium B35.1 ; Pain in right toe(s) M79.674 ; Pain in left toe(s) M79.675 ; Atherosclerosis of [place] arteries of extremities with intermittent claudication, bilateral legs I70.213 and Type 2 diabetes mellitus with other circulatory complications E11.59 [facility] [place] [address] [place] [id number] 01/25/2024 PIETER SNOOK Tinea unguium B35.1 ; Pain in right toe(s) M79.674 ; Pain in left toe(s) M79.675 ; Atherosclerosis of [place] arteries of extremities with intermittent claudication, bilateral legs I70.213 and Type 2 diabetes mellitus with other circulatory complications E11.59 [facility] [place] [address] [place] [id number] 03/28/2024 PIETER SNOOK Tinea unguium B35.1 ; Pain in right toe(s) M79.674 ; Pain in left toe(s) M79.675 ; Atherosclerosis of [place] arteries of extremities with intermittent claudication, bilateral [...] toe(s) (ICD-10 - M79.675) 06/01/2023 Atherosclerosis of [place] arteries of extremities with intermittent claudication, bilateral legs (ICD-10 - I70.213) 11/09/2023 Pain in left toe(s) (ICD-10 - M79.675) 08/24/2023 Atherosclerosis of [place] arteries of extremities with intermittent claudication, bilateral legs (ICD-10 - I70.213) 01/25/2024 Pain in left toe(s) (ICD-10 - M79.675) 03/28/2024 Atherosclerosis of [place] arteries of extremities with intermittent claudication, bilateral legs (ICD-10 - I70.213) 01/25/2024 Atherosclerosis of [place] arteries of extremities with intermittent claudication, bilateral [...] the Amputation Prevention Guide. 11/09/2023 Atherosclerosis of [place] arteries of extremities with intermittent claudication, bilateral [...] Appt Details Provider Name:PIETER WALSH, 08:10:00 AM, [address], [facility] [address], [place], [place], [phone], Insurance Providers Payer Name Payer Address Payer Phone Subscriber Number Group Number Insured Name Patient Relationship to Insured Coverage Start Date Coverage End Date Medicare Part B [place] [address] [place] [phone] [id number] KLAUDIA HALEY Self - patient is the insured
--- OUTSIDE RECORDS SUMMARY | 2024-05-01 18:01 | XMS_ITS | Encounter Summary ---
Author Organization [facility] Address [address] [place] [address] Care Team Providers Care Lead Systems Analyst Name Role Phone Sandi Alfaro Primary Care Provider [phone] Cheryl Huston RN Unavailable Unavailable Encounter Details Date Type Department Care Team (Late st Contact Info) Description 08/18/2023 [employer] Message Enc [facility] - [facility] [address], [address] [place] [phone] [facility] Provider Results Social History Tobacco Use Types Packs/Day Years Used Date Smoking Tobacco: Every Day Cigarettes 0.3 40 Smokeless Tobacco: Never Comments:currently smoking 2 -3 cigarettes a day Alcohol Use Standard Drinks/Week Comments Yes 0 (1 standard drink = 0.6 oz pur e alcohol) very rarely 6 beers/year [facility] Utilities Answer Date Recorded In the past 12 months has [facility] [employer], gas, oil, or water [employer] threatened to shut off services in your [...] How often do you attend chur or presybeterian services? Never 05/12/2023 Do you belong to [...] Recorded Patient Health Questionnaire-2 Score 0 05/21/2023 [facility] - Occupational [...] place to sleep or slept in a detention (including now)? No 05/12/2023 Sex and Gender Information Value Date Recorded Sex Assigned at Male 03/31/2024 8:58 AM HORSE TRAINER Legal Sex Male 8:01 PM CDT Gender [...] documented as of this encounter Care Teams Lead Systems Analyst Relationship Specialty Start Date End Date Sandi Alfaro APNP Family [facility] [place] [address] PCP - General [employer] PRACTICE SUPERVISOR LAST MODEL DEPARTMENT 04/28/17 Cheryl Huston, parachute officer (Ambulatory) REGISTERED NURSE 03/23/19 documented as of this encounter
--- OUTSIDE RECORDS SUMMARY | 2024-05-01 18:01 | XMS_ITS | Referral Summary ---
Author Organization [facility] Address [address] [place] [address] Care Team Providers Care Ham Smoker Name Role Phone Sandi Alfaro HARNESS CLEANER-HEALTH CARE ADMINISTRATOR Primary Care Provider Source Comments [facility] [employer],non-owned Affiliates and Associated Physician Practices is amultiple site organization consisting of ambulatory clinics and hospital sitesin [place], [place], [place] and [place]. This disclosure is being madepursuant to the Care Everywhere program and may not contain all information available regarding this patient. Last updated 17.[facility] Allergies No known active allergies Medications * [...] PM CDT [facility] Comment: Neither HIV-1 p24 Antigen nor HIV-1/HIV-2 Antibodies are detected. Blood BLOOD SPECIMEN / Unknown Venipuncture / Unknown 05/26/2018 4:21 PM CDT 05/26/2018 4:26 PM CDT Jim Ann MD LAB - HEMATOLOGY ORD ERABLES [facility] [address] [place] [address] * HEPATITIS C AB SCREEN RFLX NAAT QUANT (05/26/2018 4:21 PM CDT) Hepatitis C Antibody Non-react kendell Non-reac tive 05/26/2018 5:13 PM CDT [facility] Comment: Hepatitis C Antibody screen [...] Ann MD LAB - CHEMISTRY LORENZA BULLARD [address] [phone] from Last 3 Months or Most Recently Relevant to Health Maintenance Advance Directives * Full Code (Latest Code Status on File) Date Activated Date Inactivated Comments 05/26/2018 2:01 PM 05/28/2018 11:56 AM Care Teams Ham Smoker Relationship Specialty Start Date End Date Sandi Alfaro, HARNESS CLEANER-HEALTH CARE ADMINISTRATOR [address] [place] [address] PCP - General 08/27/21
--- OUTSIDE RECORDS SUMMARY | 2024-05-01 18:01 | XMS_ITS | Encounter Summary ---
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 Legal Sex Male 8:01 PM CDT Gender [...] Rule Out 05/03/2020 05/03/2020 05/03/2020 3:25 PM PARTY PLAN SELLING DISTRIBUTOR COVID-19 Rule Out 05/12/2023 05/12/2023 05/13/2023 12:01 AM CDT Influenza - Seasonal 05/14/2023 05/14/2023 024 12:32 AM CDT documented as of this encounter Care Teams Database Marketing Manager Relationship Specialty Start Date End Date Sandi Alfaro APNP Family & Internal Medicine [address] [address] PCP - General ADVANCED PRACTICE INFORMATION SYSTEMS AUDITOR 04/28/17 Sandi Alfaro APNP [address] [place] [address] PCP - Med Group - MSSP Attributed Provider 03/02/15 03/01/22 Cheryl Huston, trolley collector (Ambulatory) REGISTERED NURSE 03/23/19 documented as of this encounter
[2024-05-01 18:09] VITALS: BP 114/65; PULSE 89; RESP 20; TEMP 36.4; O2SAT 98
[2024-05-01 18:19] LABS: Basophils Percent Auto 0.3 % (0.2-1.2); Eosinophils Absolute Auto 0.1 K/mm3 (0-0.3); Eosinophils Percent Auto 1.7 % (0-4.4); Hematocrit 40.3 % (42.0-52.0); Hemoglobin 13.7 g/dL (14.0-18.0); Immature Granulocyte Absolute 0.02 K/mm3 (0.00-0.031); Immature Granulocyte Percent A 0.3 % (0-0.5); Immature Platelet Fraction Pct 6.1 % (0.9-11.2); Lymphocytes Absolute Auto 1.22 K/mm3 (0.9-3.2); Lymphocytes Percent Auto 17.7 % (18.3-44.2); Mean Corpuscular Hemoglobin 30.6 pg (26-34); Mean Corpuscular Volume 90.2 fl (80-100); Mean Platelet Volume 10.8 fl (7.4-10.4); Monocytes Absolute Auto 0.7 K/mm3 (0.1-0.6); Monocytes Percent Auto 10.1 % (2.6-8.5); Neutrophils Absolute Auto 4.8 K/mm3 (1.3-6.7); Neutrophils Percent Auto 69.9 % (45.5-73.1); Platelet Count Result 123 k/mm3 (150-375); Red Blood Count 4.47 M/mm3 (4.6-6.20); Red Cell Distribution Width 13.9 % (11.5-14.5); White Blood Count 6.9 K/mm3 (4.5-10.0)
[2024-05-01 18:27] LABS: INR 1.1
[2024-05-01 18:28] LABS: Alanine Aminotransferase 46 U/L (6-50); Albumin Level 4.3 g/dL (3.5-5.1); Alkaline Phosphatase 66 U/L (38-126); Anion Gap 10 mmol/L (4-12); Aspartate Amino Transferase 28 U/L (17-59); Bilirubin,Total 0.9 mg/dL (0.2-1.3); Blood Urea Nitrogen 17 mg/dL (9-20); Calcium 8.9 mg/dL (8.4-10.2); Carbon Dioxide 25 mmol/L (22-30); Chloride 103 mmol/L (98-107); Estimated CRCL calculation 74 ml/min; Estimated Glomerular Filt Rate 56; Glucose 144 mg/dL (65-110); Lipase 118 U/L (23-300); Partial Thromboplastin Time 31.8 Seconds (22.3-36.8); Potassium 4.2 mmol/L (3.4-5.0); Sodium 138 mmol/L (137-145)
[2024-05-01 18:38] VITALS: O2SAT 97
[2024-05-01 18:38] LABS: Troponin I < 0.012 ng/mL (0.000-0.034)
[2024-05-01] MEDS: ASPIRIN 81 MG CHEWABLE TABLET 324 MG PO (18:59)
--- OUTSIDE RECORDS SUMMARY | 2024-05-01 19:24 | XMS_ITS | Clinical Summary ---
Author Organization [facility] [employer] Address [address] [place] [address] Care Team Providers Care Public Works Laborer Name Role Phone Sandi Alfaro [employer]AUFFEUR [employer]OR[employer]-CORPORATE SAFETY COORDINATOR Primary Care Provider Source Comments [facility] [employer],non-owned Affiliates and Associated Physician Practices is amultiple site organization consisting of ambulatory clinics and hospital sitesin [place], [place], [place] and [place]. This disclosure is being madepursuant to the Care Everywhere program and may not contain all information available regarding this patient. Last updated 17.[facility] [employer] Allergies No known active allergies Medications * [...] HIV-2 ANTIGEN/ANTIBODY (05/26/2018 4:21 PM CDT) Pathologist [facility] HIV Antigen/Antibod y 1 & 2 Non-reacti ve Non-react kendell 05/26/2018 5:12 PM CDT [facility] Comment: Neither HIV-1 p24 Antigen nor HIV-1/HIV-2 Antibodies are detected. Blood BLOOD SPECIMEN / Unknown Venipuncture / Unknown 05/26/2018 4:21 PM CDT 05/26/2018 4:26 PM CDT Jim Ann MD LAB - HEMATOLOGY DEDE MCLEOD Performing Organization Address City/[facility]/ZIP Co de Phone Number [address] [phone] * HEPATITIS C AB SCREEN RFLX NAAT QUANT (05/26/2018 4:21 PM CDT) Pathologist [facility] Hepatitis C Antibody Non-react kendell Non-reac tive 05/26/2018 5:13 PM CDT [facility] Comment: Hepatitis C Antibody screen indicates [...] - CHEMISTRY LORENZA BULLARD Performing Organization Address City/[facility]/[place] [address], [facility] [phone] from Last 3 Months or Most Recently Relevant to Health Maintenance Advance Directives * Full Code (Latest Code Status on File) Date Activated Date Inactivated Comments 05/26/2018 2:01 PM 05/28/2018 11:56 AM Care Teams Public Works Laborer Relationship Specialty Start Date End Date Sandi Alfaro, ELIEL-CORPORATE SAFETY COORDINATOR [address] [place] [address] PCP - General 08/27/21
--- OUTSIDE RECORDS SUMMARY | 2024-05-01 19:24 | XMS_ITS | Encounter Summary ---
Author Organization [facility] Address [address] [place] [address] Care Team Providers Care Hospice Coordinator Name Role Phone Sandi Alfaro Primary Care Provider [phone] Cheryl Huston RN Unavailable Unavailable Encounter Details Date Type Department Care Team (Late st Contact Info) Description 08/18/2023 [employer] Message Enc [facility] Medical Group Multispecialty Care - [facility] [address], [address] [place] [id number] [employer], [facility] Provider Results Social History Tobacco Use Types Packs/Day Years Used Date Smoking Tobacco: Every Day Cigarettes 0.3 40 Smokeless Tobacco: Never Comments:currently smoking 2 -3 cigarettes a day Alcohol Use Standard Drinks/Week Comments Yes 0 (1 standard drink = 0.6 oz pur e alcohol) very rarely 6 beers/year [facility] Utilities Answer Date Recorded In the past 12 months has [facility] [employer] ASA, gas, oil, or water [employer] threatened to shut off services in your [...] How often do you attend chur or church services? Never 05/12/2023 Do you belong to any clubs o r organizations such as temple groups, unions, fraternal or athletic groups, or [...] place to sleep or slept in a jail (including now)? 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
--- OUTSIDE RECORDS SUMMARY | 2024-05-01 19:24 | XMS_ITS | Encounter Summary ---
Author Organization [facility] Address [address] [place] [address] Care Team Providers Care Reed Worker Name Role Phone Sandi Alfaro Primary Care Provider [phone] Cheryl Huston RN Unavailable Unavailable Encounter Details Date Type Department Care Team (Late st Contact Info) Description 08/27/2022 [employer] Message Enc [facility] Medical Group - [place] [address] [place], [place] [address] [employer], [facility] Provider Air Quality Message Social History Tobacco [...] Sex Assigned at Male 03/31/2024 8:58 AM 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
--- OUTSIDE RECORDS SUMMARY | 2024-05-01 19:24 | XMS_ITS | Encounter Summary ---
Author Organization [facility] Address [address] [place] [address] Care Team Providers Care Winderman Name Role Phone Sandi Alfaro Primary Care Provider [phone] Sandi Alfaro Unavailable [phone] Cheryl Huston RN Unavailable Unavailable Encounter Details Date Type Department Care Team (Late st Contact Info) Description 05/13/2021 [employer] Message Enc [facility] Medical Group Multispecialty Care - [facility] [address] [place] [address] Eliza, [facility] Provider CPAP Social History Tobacco Use Types Packs/Day Years Used Date Smoking Tobacco: Every Day Cigarettes 0.3 40 Smokeless Tobacco: Never Comments:want to quit but gary s alot of stress right [id number] smoking about 3-4 cigaretts a day Alcohol Use Standard Drinks/Week Comments Yes 0 (1 standard drink = 0.6 oz pur e alcohol) very rarely 6 beers/year PHQ-2 Answer Date Recorded PHQ-2 Score - If the patient scores above 3, please move on to questions 3-9 4 01/23/2021 Sex and Gender Information Value Date Recorded Sex Assigned at Male 03/31/2024 8:58 AM SKI EDGE PAINTER Legal Sex Male 8:01 PM CDT Gender [...] Total Score: 7 01/24/20 21 1:37 PM SKI EDGE PAINTER documented as of this encounter Care Teams Winderman Relationship Specialty Start Date End Date Sandi Alfaro APNP Family & Internal Medicine [address] [address] PCP - General ADVANCED PRACTICE JOINT CREASER 04/28/17 Sandi Alfaro APNP [address] [place] [address] PCP - Med Group - MSSP Attributed Provider 03/02/15 03/01/22 Cheryl Huston, finish repair worker (Ambulatory) REGISTERED NURSE 03/23/19 documented as of this encounter
--- OUTSIDE RECORDS SUMMARY | 2024-05-01 19:24 | XMS_ITS | Referral Summary ---
Author Organization [facility] [address] [place] [address] [place] [address] Care Team Providers Care Wire Mill Rover Name Role Phone Sandi Alfaro Primary Care Provider + Encounters Date Type Department Care Team Description 04/22/2024 Results Follow-Up [address] [place] [address] Harini Mann RN Chest pain, unspecified type (Primary Dx); Cardiovascular stress test abnormal 04/21/2024 8:15 AM DOCUMENT PREPARATION SPECIALIST Ancillary Procedure [address] [place] [address] Coronary artery disease of [place] artery of [place] heart with stable angina pectoris (HCC) 04/20/2024 11:15 AM DOCUMENT PREPARATION SPECIALIST Ancillary Procedure [address] [place] [address] Coronary artery disease of [place] artery of [place] heart with stable angina pectoris (HCC) 04/11/2024 Telephone [facility] Cardiology [address] [place] [address] [address] [place] [address] Fernando Modi MD NM stress test instructions 04/04/2024 1:00 PM DOCUMENT PREPARATION SPECIALIST Ancillary Procedure [facility] Cardiology [address] [place] [address] [address] [place] [address] Coronary artery disease of [place] artery of [place] heart with stable angina pectoris (HCC) 03/29/2024 Telephone [facility] Cardiology [address] [place] [address] [address] [place] [address] Ifrah Gibson NP 03/28/2024 9:00 AM DOCUMENT PREPARATION SPECIALIST Office Visit [facility] Medical Group Cardiology [address] [place] [phone] Ifrah Gibson NP Coronary artery disease of [place] artery of [place] heart with stable angina pectoris (HCC) (Primary Dx); CVA, old, hemiparesis (CMS/HCC) (HCC); Hypertension associated with diabetes (HCC); Recently quit using tobacco 03/24/2024 Telephone [facility] Cardiology [address] [place] [address] Fernando Modi MD Chest Pain from Last [...] 24 hr tabletIndication s:Coronary artery disease of [place] artery of [place] heart with stable angina pectoris (HCC) TAKE [...] mL injection 100 mgIndications:Coronary artery disease of [place] artery of [place] heart with stable angina pectoris (HCC) 100 mg IV Once 04/21/2024 04/21/2024 Ended Active Problems Problem Noted Date Diagnosed Date Hematuria, gross 11/13/2021 Chronic heart failure with p reserved ejection fraction (CMS/HCC) 11/12/2018 Cryptogenic stroke 07/06/2018 Status post placement of implantable loop record er 10/13/2017 Overview (10/13/2017): [employer] Reveal Loop Recorder. Dx; Cryptogenic Stroke. DOI 10/12/[address] Willoughby. [facility] remote monitoring. TIA (transient ischemic attack) 10/06/2017 S/P coronary artery stent placement 12/17/2016 Morbid obesity with BMI of 45.0-49.9, adult ([facility]) 08/13/2016 Mixed anxiety depressive disorder 05/01/2015 Overview (06/07/2016): Anxiety and depression Coronary artery disease of n ative artery of [place] heart with stable angina pectoris 02/20/2015 Overview (06/07/2016): Coronary artery disease involving [place] coronary artery of [place] heart with other form of angina pectoris CVA, old, hemiparesis ([facility]) 02/20/2015 Overview (06/07/2016): CVA, old, hemiparesis Mixed diabetic hyperlipidemi a associated with type 2 diabetes mellitus ([facility]) 02/20/2015 Overview (06/07/2016): DM type 2 with [...] on file Legal Sex Male 3:15 AM DOCUMENT PREPARATION SPECIALIST Gender Identity Male 09/03/2018 6:22 AM CDT Sexual Orientation Straight 09/03/2018 6: 22 AM CDT Last Filed Vital Signs Vital Sign Reading Time Taken Comments Blood Pressure 132/72 03/28/2024 9:10 AM DOCUMENT PREPARATION SPECIALIST Pulse 82 01/18/2024 8:53 AM DOCUMENT PREPARATION SPECIALIST Temperature - - Respiratory Rate - - Oxygen Saturation 96% 03/28/2024 9:10 AM DOCUMENT PREPARATION SPECIALIST Inhaled Oxygen Concentration - - Weight 137.4 kg (303 lb) 03/28/2024 9:10 AM DOCUMENT PREPARATION SPECIALIST Height 182.9 cm (6') 03/28/2024 9:10 AM DOCUMENT PREPARATION SPECIALIST Body Mass Index 41.09 03/28/2024 9:10 AM DOCUMENT PREPARATION SPECIALIST Plan of Treatment Not on file Procedures Procedure Name Priority Date/Time Associated Diagnosis Comments NM MPI SPECT (REST AND/OR STRESS) MULTIPLE STUDIES Schedule Routine, Read Routine (OP Routine) 04/20/2024 12:17 PM DOCUMENT PREPARATION SPECIALIST Coronary artery disease of [place] artery of [place] heart with stable angina pectoris (HCC) TRANSTHORACIC ECHO (TTE) COMPLETE W DOPPLER/CF W CONTRAST Routine 04/04/2024 1:37 PM DOCUMENT PREPARATION SPECIALIST Coronary artery disease of [place] artery of [place] heart with stable angina pectoris (HCC) LIPID PANEL Routine 10/20/2023 from Last 3 Months or Most Recently Relevant to Health Maintenance Results * NM MPI SPECT (Rest and/or Stress) Multiple Studies (04/20/2024 12:17 PM DOCUMENT PREPARATION SPECIALIST) Anatomical Region Laterality Modality Body N/A Nuclear Medicine 04/20/2024 11:1 5 AM DOCUMENT PREPARATION SPECIALIST Narrative 04/21/2024 4:44 PM DOCUMENT PREPARATION SPECIALIST [facility] Medical Group Cardiology [address], [place] [address] [address] [facility] [address], [place] [address] P:[phone] P:[phone] MPI Imaging Report Patient Name: SARA HALEYTomas HOLGUIN : 1960 Study Date: 04/20/2024 11:15:21 AM Gender: M Tech: [facility] Location: [facility] Provider: IFRAH GIBSON Height(Cm): 182.9 BSA: Weight(Kg): [...] Smoker, and I25.118 Atherosclerotic heart disease of [place] coronary artery with other forms of angina [...] By: Husam Raymundo MD 04/21/2024 4:43:33 PM DOCUMENT PREPARATION SPECIALIST Electronically Signed By: Husam Raymundo MD 04/21/2024 4:43:33 PM DOCUMENT PREPARATION SPECIALIST Procedure Note Husam Raymundo MD - 04/21/2024 [facility] Medical Group Cardiology [address] [facility] [address] [address] [address] [facility] [address] [address] P:[phone] P:[phone] MPI Imaging Report Patient Name: KLAUDIA HALEY Tomas : 1960 Study Date: 04/20/2024 11:15:21 AM Gender: M Tech: [facility] Location: [facility] Provider: IFRAH GIBSON Height(Cm): 182.9 BSA: Weight(Kg): [...] Smoker, and I25.118 Atherosclerotic heart disease of [place] coronary artery withother forms of angina pectoris. [...] By: Husam Raymundo MD 04/21/2024 4:43:33 PM DOCUMENT PREPARATION SPECIALIST Electronically Signed By: Husam Raymundo MD 04/21/2024 4:43:33 PM DOCUMENT PREPARATION SPECIALIST Ifrah Gibson DOLLY OPERATOR IMG NM PROCEDURES Final R esult * TRANSTHORACIC ECHO (TTE) COMPLETE W DOPPLER/CF W CONTRAST (04/04/2024 1:37 PM DOCUMENT PREPARATION SPECIALIST) LV EF 75 % CONS SCIMAGE Anatomical Region Laterality Modality Ultrasound 04/04/2024 12:5 7 PM DOCUMENT PREPARATION SPECIALIST Narrative 04/04/2024 3:50 PM DOCUMENT PREPARATION SPECIALIST [facility] Medical Group Cardiology [address] [facility] [address], [place] [address] [address] [facility] [address], [place] [address] P:[phone] P:[phone] Echocardiographic Report Patient Name: KLAUDIA HALEY B : 1960 Study Date: 04/04/2024 12:57:00 PM Gender: M Tech: Location: [place] Ref Provider: IFRAH GIBSON Height(Cm): 183 BSA: 2.64 Weight(Kg): 137.4 Heart Rate: 79 BP: 132 / 72 Quality: Definity contrast agent used to enhance endocardial border definition Order Provider: IFRAH GIBSON PROCEDURES: Echocardiographic Report: Transthoracic echocardiogram with complete 2D, M-Mode, color Doppler examination and Definity contrast. INDICATIONS: Coronary Artery Disease, Shortness of breath, and I25.118 Atherosclerotic heart disease of [place] coronary artery with other forms of angina [...] FINDINGS: Interpretation Site: Exam was interpreted at [facility]. Left Ventricle: Normal left ventricular size. Definity [...] Electronically Signed By: Todd Kwan MD, [facility] 04/04/2024 3:49:55 PM DOCUMENT PREPARATION SPECIALIST Procedure Note Todd Kwan MD - 04/04/2024 [facility] Medical Group Cardiology [address] [facility] [address] [id number] [address] [facility] [address] [address] P:[phone] P:[phone] Echocardiographic Report Patient Name: KLAUDIA HALEY Tomas : 1960 Study Date: 04/04/2024 12:57:00 PM Gender: M Tech: Location: [facility] Provider: IFRAH GIBSON Height(Cm): 183 BSA: 2.64 Weight(Kg): 137.4 Heart Rate: 79 BP: 132 / 72 Quality: Definity contrast agent used to enhance endocardial borderdefinition Order Provider: IFRAH GIBSON PROCEDURES: Echocardiographic Report: Transthoracic echocardiogram with complete 2D, M-Mode, color Dopplerexamination and Definity contrast. INDICATIONS: Coronary Artery Disease, Shortness of breath, and I25.118 Atheroscleroticheart disease of [place] coronary artery with other forms of angina [...] FINDINGS: Interpretation Site: Exam was interpreted at [facility]. Left Ventricle: Normal left ventricular size. Definity [...] Electronically Signed By: Todd Kwan MD, [facility] 04/04/2024 3:49:55 PM DOCUMENT PREPARATION SPECIALIST Ifrah Gibson NP CV ECHO PROCEDURES Final [...] Recently Relevant to Health Maintenance Insurance MEDICARE [facility] MEDICARE MEDICARE [facility] MEDICARE Care Teams Wire Mill Rover Relationship Specialty Start Date End Date Sandi Alfaro PA PCP - General Nurse Practitioner 08/21/17
--- OUTSIDE RECORDS SUMMARY | 2024-05-01 19:24 | XMS_ITS | Patient Health Summary ---
Author Organization [facility] Address [address] [place] [address] Care Team Providers Care Roundhouse Firer/Fireman Name Role Phone Sandi Alfaro CONDUIT HELPER-JOURNALISM INTERN Primary Care Provider Note from [facility],non-owned Affiliates and Associated Physician Practices is amultiple site organization consisting of ambulatory clinics and hospital sitesin [place], [place], [place] and [place]. This disclosure is being madepursuant to the Care Everywhere program and may not contain all information available regarding this patient. Last updated 17.[facility] Allergies No known active allergies Medications [...] of5 resultswithin the time period is included. [facility] Glucose WB/POC 131(H) 70 - 115 mg/dL 05/28/2018 6:57 AM CDT [facility] Specimen Type Arterial/C apillary 05/28/2018 6:57 AM CDT [facility] Blood BLOOD SPECIMEN / Unknown 05/28/2018 6:52 AM CDT 05/28/2018 6:57 AM CDT [facility] - 05/28/2018 6:57 AM CDT BOBTAILER: MARIZOL BOOKER Erick Vera MD LAB - POINT OF CARE ORDERABLES Performing Organization Address City/State/[facility] Co de Phone Number [address] [phone] * PLATELET ANTIBODY DRUG DEPENDENT (05/28/2018 4:14 AM CDT) [facility] Patient Serum Without Drug Comment 06/16/2018 4:11 PM CDT [facility] ([facility]) Comment:Reference lab report sent via fax. Blood BLOOD SPECIMEN / Unknown Lab Venipuncture / Unknown 05/28/2018 4:14 AM CDT 05/28/2018 4:32 AM CDT [facility] - 06/16/2018 4:11 PM CDT Performed at: [facility] [address] [place] [address] [place] [address] [place] [address] [id number] Manual Equipment Mechanic: Husam Reyes MD, Phone: [phone] Tone Brower MD LAB - COAGULATION OR DERABLES [facility] ([facility]) [address] [place] [address], [facility] * (ABNORMAL) CBC W/O DIFFERENTIAL (05/27/2018 11:30 PM [facility]) Only the most recent of4 resultswithin the time period is included. WBC 7.1 3.5 - 10.5 10 3/uL 05/28/2018 12:01 AM [facility] RBC 4.15(L) 4.30 - 5.70 10 6/uL 05/28/2018 12:01 AM [facility] Hemoglobin 12.8(L) 13.5 - 17.5 g/dL 05/28/2018 12:01 AM [facility] Hematocrit 37.1(L) 39.0 - 50.0 % 05/28/2018 12:01 AM [facility] MCV 89.4 81.0 - 97.0 fL 05/28/2018 12:01 AM [facility] MCH 30.8 28.0 - 34.0 pg 05/28/2018 12:01 AM [facility] MCHC 34.5 32.0 - 36.0 g/dL 05/28/2018 12:01 AM [facility] Platelet Count 135(L) 150 - 400 10 3/uL 05/28/2018 12:01 AM [facility] RDW-SD 44.0 36.0 - 50.0 fL 05/28/2018 12:01 AM [facility] RDW-CV 13.5 11.2 - 14.8 % 05/28/2018 12:01 AM [facility] MPV 11.4 9.3 - 12.8 fL 05/28/2018 12:01 AM [facility] nRBC Absolute 0.00 0 10 3/uL 05/28/2018 12:01 AM [facility] nRBC Auto 0.0 0 /100 WBC 05/28/2018 12:01 AM [facility] Blood BLOOD SPECIMEN / Unknown Lab Venipuncture / Unknown 05/27/2018 11:30 PM CDT 05/27/2018 11:55 PM CDT Mehul Floyd MD LAB - HEMATOLOGY ORD HARSHA [facility] [address] [phone] * BASIC METABOLIC PANEL (CALCIUM TOTAL) (05/27/2018 11:30 PM CDT) Only the most recent of5 resultswithin the time period is included. BUN 17 7 - 26 mg/dL 05/28/2018 12:17 AM [facility] Creatinine 1.1 0.6 - 1.2 mg/dL 05/28/2018 12:17 AM [facility] Sodium 137 136 - 145 mmol/L 05/28/2018 12:17 AM [facility] Potassium 4.0 3.5 - 4.5 mmol/L 05/28/2018 12:17 AM [facility] Chloride 103 98 - 107 mmol/L 05/28/2018 12:17 AM [facility] CO2 24 22 - 29 mmol/L 05/28/2018 12:17 AM [facility] Glucose 102 70 - 115 mg/dL 05/28/2018 12:17 AM [facility] Calcium 9.4 8.4 - 10.2 mg/dL 05/28/2018 12:17 AM [facility] Anion Gap 14 8 - 18 05/28/2018 12:17 AM [facility] BUN/Creatinine Ratio 15 7 - 23 05/28/2018 12:17 AM [facility] Osmolality Calculated 286 270 - 300 mOsm/kg 05/28/2018 12:17 AM [facility] eGFR >60 >60 mL/min/1.7 3 m2 05/28/2018 12:17 AM [facility] Blood BLOOD SPECIMEN / Unknown Lab Venipuncture / Unknown 05/27/2018 11:30 PM CDT 05/27/2018 11:55 PM CDT Mehul Floyd MD LAB - CHEMISTRY LORENZA BULLARD [address] [phone] * PHOSPHORUS BLOOD (05/27/2018 11:30 PM CDT) Only the most recent of4 resultswithin the time period is included. Phosphorus 3.2 2.3 - 4.7 mg/dL 05/28/2018 12:17 AM CDT [facility] Blood BLOOD SPECIMEN / Unknown Lab Venipuncture / Unknown 05/27/2018 11:30 PM CDT 05/27/2018 11:55 PM CDT Mehul Floyd MD LAB - CHEMISTRY LORENZA BULLARD Performing Organization Address [facility] Co de Phone Number [address] [phone] * MAGNESIUM BLOOD (05/27/2018 11:30 PM CDT) Only the most recent of4 resultswithin the time period is included. Magnesium 1.7 1.6 - 2.6 mg/dL 05/28/2018 12:17 AM CDT [facility] Blood BLOOD SPECIMEN / Unknown Lab Venipuncture / Unknown 05/27/2018 11:30 PM CDT 05/27/2018 11:55 PM CDT Mehul Floyd MD LAB - CHEMISTRY LORENZA BULLARD Performing Organization Address [facility] Co de Phone Number [address] [phone] * MRI BRAIN WO CONTRAST (05/27/2018 12:51 [...] resultswithin the time period is included. Pathologist [facility] Troponin I <0.010 <0.032 ng/mL 05/27/2018 9:02 AM CDT [facility] Blood BLOOD SPECIMEN / Unknown Venipuncture / Unknown 05/27/2018 8:28 AM CDT 05/27/2018 8:28 AM CDT Mehul Floyd MD LAB - CHEMISTRY ORDKristal BULLARD Performing Organization Address City/[facility]/ZIP Co de Phone Number [address] [phone] * HIV-1 HIV-2 ANTIGEN/ANTIBODY (05/26/2018 4:21 PM CDT) [facility] HIV Antigen/Antibod y 1 & 2 Non-reacti ve Non-react kendell 05/26/2018 5:12 PM CDT [facility] Comment: Neither HIV-1 p24 Antigen nor HIV-1/HIV-2 Antibodies are detected. Blood BLOOD SPECIMEN / Unknown Venipuncture / Unknown 05/26/2018 4:21 PM CDT 05/26/2018 4:26 PM CDT Jim Ann MD LAB - HEMATOLOGY ORD HARSHA [address] [phone] * HEPATITIS C AB SCREEN RFLX NAAT [...] Ann MD LAB - CHEMISTRY LORENZA BULLARD [facility] Organization Address City/State/ZIP Co de Phone Number [facility] [address] [place] [address], [facility] [phone] * DRUG SCREEN TOX URINE PANEL (05/26/2018 3:09 PM CDT) [facility] Amphetamines Screen Urine Negative Negative: < 1000 [...] not screen for Propoxyphene, Meprobamate, Carisoprodol, Trazodone, kkgs-pzb-maonpcn medications and/or volatiles (Acetone, Isopropanol, Methanol or Ethylene Glycol). Ethanol, Salicylate, Acetaminophen, Tricyclic Antidepressants and several therapeutic drugs may be individually assayed in serum or plasma specimen. Toxicology testing by the [facility] is an aid to medical diagnosis and treatment of patients. No documented chain of custody was maintained. Results are intended to be used for clinical purposes only. Mehul Floyd MD LAB - URINE CHEMISTR Y ORDERABLES Performing Organization Address City/[facility]/ZIP Co de Phone Number [facility] [address] [phone] * EKG 12-LEAD (05/26/2018 2:35 PM CDT) Only the most recent of3 resultswithin the time period is included. Ventricular Rate 78 BPM [facility] Atrial Rate 78 BPM [facility] P-R Interval 152 ms [facility] QRS Duration ms 96 ms [facility] Q-T Interval ms 422 ms [facility] QTC Calculation (Bezet) 481 ms [facility] Calculated P [place] 47 degrees [facility] Calculated R [place] 2 degrees [facility] Calculated T [place] 36 degrees [facility] Interpretation EKG NORMAL SINUS RHYTHM INCOMPLETE RIGHT BUNDLE BRANCH BLOCK PROLONGED QT ABNORMAL ECG WHEN COMPARED WITH ECG OF 20-AUG-2016 05:38, NO SIGNIFICANT CHANGE WAS FOUND Confirmed by Max INGRAM, DEMARCUS ([id number]), nurse case manager Jax Colmenares ([id number]) on 06/09/2018 10:06:25 PM [facility] 05/26/2018 2:35 PM CDT 06/09/2018 10:06 PM CDT Ruiz Chávez MD ECG ORDERABLES Performing Organization Address [facility] Co de Phone Number [facility] * TYPE + SCREEN PANEL (05/26/2018 2:00 PM CDT) Only the most recent of2 resultswithin the time period is included. [facility] Antibody Screen NEG 9 3:08 PM CDT [facility] LAB ABO Rh A POS 05/26/2018 3:08 PM CDT [facility] Blood Bank BLOOD SPECIMEN / Unknown Venipuncture / Unknown 05/26/2018 2:00 PM CDT 05/26/2018 2:13 PM CDT Ruiz Chávez MD LAB - BLOOD BANK ORD ERABLES Performing Organization Address [facility]/ZIP Co de Phone Number [facility] [address] * PT-INR [facility] (05/26/2018 1:59 PM CDT) Only the most recent of2 resultswithin the time period is included. PT 12.8 12.1 - 14.8 Seconds 05/26/2018 2:14 PM CDT [facility] INR 1.0 See Comment 05/26/2018 [...] - COAGULATION OR DERABLES Performing Organization Address [facility] Co de Phone Number [facility] [address] [phone] * (ABNORMAL) HEMOGLOBIN A1C (05/26/2018 1:59 PM [...] Equal to or greater than 6.5% Reference: [place] [employer] Standards of Care in Diabetes -2014 In patients 70 years and older consider HbA1c target range of 7.0-7.5% Reference: Diabetes Mellitus in Older People: Position Statement on behalf of the International Association of Gerontology and Geriatrics (IAGG), the Diabetes Working Constitution Party for Older People (EDWPOP), and the International Task Force of Experts in Diabetes. Anil Irvin et al. J [employer] [employer]. 2012 Test results diagnostic of diabetes should be repeated for confirmation. The Sebia Capillary 2 assay for the measurement of HbA1c is a National Glycohemoglobin Standardization Program (NGSP)certified method. Blood BLOOD SPECIMEN / Unknown Venipuncture / Unknown 05/26/2018 1:59 PM CDT 05/26/2018 2:19 PM CDT Mehul Floyd MD LAB - CHEMISTRY LORENZA BULLARD [facility] Organization Address City/State/ZIP Co de Phone Number [address] [phone] * (ABNORMAL) CBC W AUTO DIFFERENTIAL (05/26/2018 1:59 PM CDT) Only the most recent of3 resultswithin the time period is included. WBC 8.0 3.5 - 10.5 10 3/uL 05/26/2018 2:08 PM [facility] RBC 4.70 4.30 - 5.70 10 6/uL 05/26/2018 2:08 PM [facility] Hemoglobin 14.3 13.5 - 17.5 g/dL 05/26/2018 2:08 PM [facility] Hematocrit 42.0 39.0 - 50.0 % 05/26/2018 2:08 PM [facility] MCV 89.4 81.0 - 97.0 fL 05/26/2018 2:08 PM [facility] MCH 30.4 28.0 - 34.0 pg 05/26/2018 2:08 PM [facility] MCHC 34.0 32.0 - 36.0 g/dL 05/26/2018 2:08 PM [facility] Platelet Count 158 150 - 400 10 3/uL 05/26/2018 2:08 PM [facility] RDW-SD 44.7 36.0 - 50.0 fL 05/26/2018 2:08 PM [facility] RDW-CV 13.7 11.2 - 14.8 % 05/26/2018 2:08 PM [facility] MPV 10.9 9.3 - 12.8 fL 05/26/2018 2:08 PM [facility] nRBC Absolute 0.00 0 10 3/uL 05/26/2018 2:08 PM [facility] nRBC Auto 0.0 0 /100 WBC 05/26/2018 2:08 PM [facility] Neutrophils % 69.0 35.0 - 70.0 % 05/26/2018 2:08 PM [facility] Lymphocytes % 16.7(L) 19.7 - 55.1 % 05/26/2018 2:08 PM [facility] Monocytes % 9.7 3.0 - 15.0 % 05/26/2018 2:08 PM [facility] Eosinophils % 4.1 0.0 - 6.0 % 05/26/2018 2:08 PM [facility] Basophil % 0.1 0.0 - 1.5 % 05/26/2018 2:08 PM [facility] Neutrophils Absolute 5.5 1.6 - 7.0 10 3/uL 05/26/2018 2:08 PM [facility] Lymphocyte Absolute 1.3 0.8 - 2.9 10 3/uL 05/26/2018 2:08 PM [facility] Monocytes Absolute 0.78(H) 0.14 - 0.66 10 3/uL 05/26/2018 2:08 PM [facility] Eosinophils Absolute 0.33 0.00 - 0.45 10 3/uL 05/26/2018 2:08 PM [facility] Basophils Absolute 0.01 0.00 - 0.06 10 3/uL 05/26/2018 2:08 PM [facility] Immature Granulocytes % 0.4 0.0 - 1.0 % 05/26/2018 2:08 PM [facility] Blood BLOOD SPECIMEN / Unknown Venipuncture / Unknown 05/26/2018 1:59 PM CDT 05/26/2018 2:05 PM CDT Ruiz Chávez MD LAB - HEMATOLOGY ORD ERABLES [facility] [address] [phone] * (ABNORMAL) COMPREHENSIVE METABOLIC PANEL (05/26/2018 1:59 PM CDT) BUN 25 7 - 26 mg/dL 05/26/2018 2:23 PM [facility] Creatinine 1.1 0.6 - 1.2 mg/dL 05/26/2018 2:23 PM [facility] Sodium 138 136 - 145 mmol/L 05/26/2018 2:23 PM [facility] Potassium 4.1 3.5 - 4.5 mmol/L 05/26/2018 2:23 PM [facility] Chloride 101 98 - 107 mmol/L 05/26/2018 2:23 PM [facility] CO2 26 22 - 29 mmol/L 05/26/2018 2:23 PM [facility] Glucose 109 70 - 115 mg/dL 05/26/2018 2:23 PM [facility] Calcium 9.9 8.4 - 10.2 mg/dL 05/26/2018 2:23 PM [facility] Protein Total 7.8 6.0 - 8.3 g/dL 05/26/2018 2:23 PM [facility] Albumin 4.0 3.4 - 5.0 g/dL 05/26/2018 2:23 PM [facility] Bilirubin Total 0.8 0.2 - 1.2 mg/dL 05/26/2018 2:23 PM [facility] Alkaline Phosphatase 57 40 - 150 Units/L 05/26/2018 2:23 PM [facility] ALT 56(H) 0 - 55 Units/L 05/26/2018 2:23 PM [facility] AST 44(H) 5 - 34 Units/L 05/26/2018 2:23 PM [facility] Anion Gap 15 8 - 18 05/26/2018 2:23 PM [facility] BUN/Creatinine Ratio 23 7 - 23 05/26/2018 2:23 PM T [facility] Osmolality Calculated 291 270 - 300 mOsm/kg 05/26/2018 2:23 PM [facility] Albumin/Globulin Ratio 1.1 1.1 - 2.3 05/26/2018 2:23 PM [facility] eGFR >60 >60 mL/min/1.7 3 m2 05/26/2018 2:23 PM [facility] Blood BLOOD SPECIMEN / Unknown Venipuncture / Unknown 05/26/2018 1:59 PM CDT 05/26/2018 2:05 PM CDT Ruiz Chávez MD LAB - CHEMISTRY LORENZA BULLARD [facility] Organization Address City/State/ZIP Co de Phone Number [facility] [address] [place] [address] * (ABNORMAL) LIPID PROFILE (05/26/2018 1:59 PM CDT) Only the most recent of2 resultswithin the time period is included. Cholesterol Total 125 <200 mg/dL 05/26/2018 2:46 PM [facility] HDL 26(L) >40 mg/dL 05/26/2018 2:46 PM [facility] Comment: ATP III Classification of HDL Cholesterol: <40 mg/dL: Considered a major risk factor. >60 mg/dL: Considered a negative risk factor. LDL Calculated 38 <100 mg/dL 05/26/2018 2:46 PM [facility] Comment: ATP III Classification of LDL Cholesterol: <100 mg/dL: Optimal 100 - 129 mg/dL: Near Optimal/Above Optimal 130 - 159 mg/dL: Borderline High 160 - 189 mg/dL: High >190 mg/dL: Very High Triglycerides 307(H) <150 mg/dL 05/26/2018 2:46 PM [facility] Comment: ATP III Classification of Triglycerides: <150 mg/dL: Normal 150 - 199 mg/dL: Borderline High 200 - 400 mg/dL: High >500 mg/dL: Very High Blood BLOOD SPECIMEN / Unknown Venipuncture / Unknown 05/26/2018 1:59 PM CDT 05/26/2018 2:19 PM CDT Mehul Floyd MD LAB - CHEMISTRY LORENZA BULLARD [facility] Organization Address City/State/ZIP Co de Phone Number [address] [phone] * CT ANGIO BRAIN NECK STROKE (05/26/2018 [...] dictated by Shaun Garland MD (vice president of talent acquisition). I, Dr. YOSELYN MURILLO have personally reviewed [...] Outside hospital CT head dated 05/26/2018 from [facility], CT head dated 05/19/2018, MRI [...] the intracranial vertebrals, basilar artery, and the watermelon harvesting supervisor appear unremarkable. CTA NECK: Noted normal [...] Outside hospital CT head dated 05/26/2018 from [facility], CT head dated 05/19/2018, MRI [...] circulation, the intracranial vertebrals, basilarartery, and the watermelon harvesting supervisor appear unremarkable. CTA NECK: Noted normal [...] dictated by Shaun Garland MD (vice president of talent acquisition). Dr. YOSELYN Roman have personally reviewed and [...] dictated by Shaun Garland MD (vice president of talent acquisition). Dr. YOSELYN Roman have personally reviewed and [...] Outside hospital CT head dated 05/26/2018 from [facility], CT head dated 05/19/2018, MRI [...] the intracranial vertebrals, basilar artery, and the watermelon harvesting supervisor appear unremarkable. CTA NECK: Noted normal [...] Outside hospital CT head dated 05/26/2018 from [facility], CT head dated 05/19/2018, MRI [...] circulation, the intracranial vertebrals, basilarartery, and the watermelon harvesting supervisor appear unremarkable. CTA NECK: Noted normal [...] dictated by Shaun Garland MD (vice president of talent acquisition). I, Dr. YOSELYN MURILLO have personally reviewed and interpreted this examination/study. This report was electronically signed by YOSELYN MURILLO on 05/26/2018 2:09 PM . Ruiz Chávez MD CT ORDERABLES * (ABNORMAL) GLUCOSE ACCUCHECK (08/21/2016 12:30 PM CDT) Only the most recent of6 resultswithin the time period is included. Glucose, Fingerstick 154(H) 70-115mg/d L mg/dL LOREN NUNEZ) Comment:Inseminator: YUNG RANDI ILYA 08/21/2016 12:3 0 PM CDT Gera Magallon MD LAB - CHEMISTRY LORENZA BULLARD [facility] Organization Address City/State/ZIP Co de Phone [...] Bishop Walker MD [facility] - [facility] Organization Address City/State/ZIP Co de Phone Number [address] [phone] * DRUG ABUSE PANEL 10-20+ETHANOL URINE NO [...] not screen for Propoxyphene, Meprobamate, Carisoprodol, Trazodone, eiab-rgs-ebnshgk medications and/or volatiles (Acetone, Isopropanol, Methanol or Ethylene Glycol). Ethanol, Salicylate, Acetaminophen, Tricyclic Antidepressants and several therapeutic drugs may be individually assayed in serum or plasma specimen. Toxicology testing by the [facility] is an aid to medical diagnosis and treatment of patients. No documented chain of custody was maintained. Results are intended to be used for clinical purposes only. Bishop Walker MD LAB - URINE CHEMISTR Y ORDERABLES Performing Organization Address City/[facility]/ZIP Co de Phone Number [address] [phone] * (ABNORMAL) HEPATIC FUNCTION PANEL (08/20/2016 5:28 AM CDT) Protein Total 6.8 6.0 - 8.3 g/dL [facility] Albumin 3.5 3.4 - 5.0 g/dL [...] - CHEMISTRY ORDE RABLES Performing Organization Address City/[facility]/ZIP Co de Phone Number [address] [phone] * ECHO W DOPPLER AND COLOR FLOW [...] Walker MD LAB - COAGULATION OR DERABLES [address] [phone] * CULTURE URINE (10/19/2013 11:31 AM CDT) [...] [facility] - 10/21/2013 3:11 PM CDT EricSpecalexandrian#[id number] Eric Loc//Bed: 3 [facility]/316/02 CLN CATCH U @ CHRISTIANNE DATE was changed from 10/18/13 to 10/19/13 @ by DELICIA. Historical Provider LAB - MICROBIOLOG Y ORDERABLES [address] [phone] Care Teams Roundhouse Firer/Fireman Relationship Specialty Start Date End Date Sandi Alfaro, CONDUIT HELPER-JOURNALISM INTERN [address] [place] [id number] PCP - General 08/27/21
--- OUTSIDE RECORDS SUMMARY | 2024-05-01 19:24 | XMS_ITS | Clinical Summary ---
Author Organization [facility] Address [address] [place] [id number] Care Team Providers Care Superintendent Pipelines Name Role Phone Sandi Alfaro Primary Care Provider [phone] Cheryl Huston RN Unavailable Unavailable Allergies No [...] complication, without long-term current use of insulin ([facility]/HCC) USE 1 STRIP BY OTHER ROUTE 2 [...] complication, without long-term current use of insulin ([facility]) Take 1 tablet (10 mg total) by mouth daily. 90 tablet 02/16/20 24 Active ondansetron (ZOFRAN-ODT) 4 MG disintegrating tabletIndications :Vertigo Take 1 tablet (4 mg total) by mouth every 8 (eight) hours as needed for Nausea. 30 tablet 03/22/19 25 Active losartan (COZAAR) 100 MG tabletIndications :Hypertensive heart disease with congestive heart failure, unspecified heart failure type ([facility]),Primary hypertension TAKE 1 TABLET BY MOUTH EVERY [...] congestive heart failure, unspecified heart failure type ([facility]) TAKE 1 TABLET BY MOUTH EVERYDAY AT [...] congestive heart failure, unspecified heart failure type ([facility]) TAKE 1 TABLET BY MOUTH EVERYDAY AT BEDTIME 90 tablet 1 04/19/19 25 2024 Discontinued(D iscontinued by another clinician) Active Problems Problem Noted Date Diagnosed Date Thrombocytopenia 03/31/2024 Polyneuropathy associated wi th underlying disease ([facility]) 12/16/2023 Morbid (severe) obesity due to excess calories ([facility]) 05/15/2022 Body mass index (BMI) 40.0-44.9, adult ([facility]) 05/15/2022 Acute hyperglycemia 05/17/2021 Anxiety 05/17/2021 Arthritis 05/17/2021 Atypical syncope 05/17/2021 Calculus of left ureter 05/17/2021 Eczema 05/17/2021 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/17/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 0 05/17/2021 Peripheral neuropathy 05/17/2021 Rectal polyp 05/17/2021 Swelling of left lower extremity 05/17/2021 Tear of medial meniscus of knee 05/17/2021 Tobacco abuse 05/17/2021 Pain due to ureteral stent 05/17/2021 Cigarette nicotine dependence without complicati on 03/14/2019 Seasonal allergic rhinitis due to pollen 09/20/2 019 Chronic heart failure with p reserved ejection fraction ([facility]) 11/12/2018 Arthralgia of left hand 11/02/2018 Enchondroma of bone of hand, left 11/02/2018 Carpal tunnel syndrome on left 08/26/2018 Cryptogenic stroke ([facility]) 07/06/2018 Skin lesion of right arm 06/28/2018 Weakness 05/26/2018 Status post placement of implantable loop record er 10/13/2017 Overview (01/13/2018): Overview: [employer] Reveal Loop Recorder. Dx; Cryptogenic Stroke. DOI 10/12/[address] Willoughby. [employer] remote monitoring. TIA (transient ischemic attack) 10/06/2017 Mild emphysema ([facility]) 08/28/2017 Hepatic steatosis 08/28/2017 Memory loss 05/18/2017 Chest pain 04/30/2017 S/P coronary artery stent placement 12/17/2016 Hemorrhoids 10/03/2016 Hearing loss 08/01/2016 Decreased hearing 07/17/2016 Chronic nausea 03/27/2016 Diabetic foot ([facility]) 03/10/2016 Abdominal wall bulge 03/10/2016 CHF (congestive heart failure) ([facility]) 01/14/2016 Peripheral edema 12/19/2015 Tinnitus 11/08/2015 History of kidney stones 10/03/2015 Insomnia 05/07/2015 Chronic cough 03/20/2015 Hypertensive heart disease w ith congestive heart failure ([facility]) 02/20/2015 Overview (01/13/2018): Overview: Hypertensive heart disease with diastolic heart failure 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 02/20/2015 Overview (01/13/2018): Overview: Coronary artery disease involving dry creek coronary artery of dry creek heart with other form of angina pectoris CVA, old, hemiparesis ([facility]) 02/21/20 15 Overview (01/13/2018): Overview: CVA, old, hemiparesis Dyslipidemia associated with type 2 diabetes mellitus ([facility]) 02/20/2015 Overview (01/13/2018): Overview: DM (diabetes mellitus) Overview: DM type 2 with diabetic dyslipidemia Mixed diabetic hyperlipidemi a associated with type 2 diabetes mellitus ([facility]) 02/20/2015 Overview (05/17/2021): DM type 2 with [...] Overview: HTN (hypertension), benign Cerebrovascular accident (CVA) ([facility]) 08/23/2013 Hyperlipidemia 08/23/2013 Resolved Problems Problem Noted Date Diagnosed Date Resolved Date Left nephrolithiasis 10/07/2017 018 Encounter for screening for lung cancer 04/09/2017 06/28/2018 BMI 45.0-49.9, adult ([facility]) 10/03/2016 05/15/2022 Morbid obesity ([facility]) 08/13/2016 05/15/2022 Encounter for preventive health examination 08/23/2013 06/28/2018 Encounters Date Type Department Care Team Description 04/14/2024 Scan HEALTH INFO SRVCS Scanned, Doc Med Group Lab (SCAN); CT (SCAN) 04/11/2024 Telephone [facility] Family & Internal Medicine [address] [address] Sandi Alfaro APNP Results 03/31/2024 8:40 AM AMMUNITION SPECIALIST Office Visit [address] [address] Sandi Alfaro APNP ER F/U 03/31/2024 Travel 03/29/2024 Scan MG HEALTH INFO SRVCS Scanned, Doc Med Group Image (SCAN) 03/28/2024 Scan MG HEALTH INFO SRVCS Scanned, Doc Med Group 03/23/2024 Scan MG HEALTH INFO SRVCS Scanned, Doc Med Group Lab (SCAN) 03/23/2024 Scan MG HEALTH INFO SRVCS Scanned, Doc Med Group Lab (SCAN) 03/22/[address] [address] Sandi Alfaro APNP Medication Request; Advice 03/18/2024 Scan MG HEALTH INFO SRVCS Scanned, Doc Med Group Lab (SCAN) 03/18/2024 Scan [facility] HEALTH INFO SRVCS Scanned, Doc Med Group Lab (SCAN); CT (SCAN); Image (SCAN) 02/26/[address] [address] Sandi Alfaro APNP Medication Request 02/22/2024 Scan MG HEALTH INFO SRVCS Scanned, Doc Med Group 02/10/[address] [phone] Sandi Alfaro APNP Lab Results 02/05/2024 9:20 AM AMMUNITION SPECIALIST Office Visit [address] [phone] Sandi Alfaro APNP [place] (Follow-up on left [...] alcohol) very rarely 6 beers/year [facility] Utilities Answer Date Recorded In the past 12 months has e [employer], gas, oil, or water [employer] threatened to shut off services in your [...] often do you attend chur ch or latter day services? Never 05/12/2023 Do you belong to any clubs o r organizations such as hoahaoism groups, unions, fraternal or athletic groups, or [...] Recorded Patient Health Questionnaire-2 Score 0 03/31/2024 [facility] Questionnaire Answer Date Recorded [...] Sex Assigned at Male 03/31/2024 8:58 AM AMMUNITION SPECIALIST Legal Sex Male 8:01 PM CDT Gender Identity Not on file Sexual Orientation Not on file Last Filed Vital Signs Vital Sign Reading Time Taken Comments Blood Pressure 128/72 03/31/2024 8:56 AM AMMUNITION SPECIALIST Pulse 81 03/31/2024 8:56 AM AMMUNITION SPECIALIST Temperature 36.3 C (97.4 F) 03/31/2024 8:56 AM AMMUNITION SPECIALIST Respiratory Rate 18 03/31/2024 8:56 AM AMMUNITION SPECIALIST Oxygen Saturation 98% 03/31/2024 8:56 AM AMMUNITION SPECIALIST Inhaled Oxygen Concentration - - Weight 139 kg (306 lb 6.4 oz) 03/31/2024 8:56 AM AMMUNITION SPECIALIST Height 182.9 cm (6') 03/31/2024 8:56 AM AMMUNITION SPECIALIST Body Mass Index 41.56 03/31/2024 8:56 AM AMMUNITION SPECIALIST Plan of Treatment Health Maintenance Due Date [...] 12/01, 12/31/2021, Additional history exists PHQ-2 (Physician [place]) Completed 03/31/2024 Meningococcal B Vaccine Aged Out [...] VENOUS BLOOD VENIPUNCTURE Routine 03/31/2024 9:56 AM AMMUNITION SPECIALIST Body mass index (BMI) 40.0-44.9, adult ([facility]) Mixed diabetic hyperlipidemia associated with type 2 diabetes mellitus ([facility]/HCC HHS/HCC) Prostate cancer screening Primary hypertension PROSTATE SPECIFIC ANTIGEN,SCREENING Routine 03/31/2024 9:55 AM AMMUNITION SPECIALIST Prostate cancer screening CBC W/DIFF AUTOMATED Routine 03/31/2024 9:55 AM AMMUNITION SPECIALIST Thrombocytopenia ([facility]/HCC) COMPREHENSIVE METABOLIC PANEL Routine 03/31/2024 9:55 AM AMMUNITION SPECIALIST Body mass index (BMI) 40.0-44.9, adult (CMS/HCC HHS/HCC) Mixed diabetic hyperlipidemia associated with type 2 diabetes mellitus (CMS/HCC HHS/HCC) Primary hypertension MG/PCCL UDS W CONF Routine 03/31/2024 8: 59 AM AMMUNITION SPECIALIST Long-term use of high-risk medication IMAGE GENERIC [...] URINE RANDOM W/CREATININE Routine 02/05/2024 11:04 AM AMMUNITION SPECIALIST Mixed diabetic hyperlipidemia associated with type 2 diabetes mellitus ([facility]/HCC HHS/HCC) COLLECT.CAPILLARY (FNGR,HEEL,EAR) Routine 02/05/2024 10:00 AM AMMUNITION SPECIALIST Type 2 diabetes mellitus without complication, without long-term current use of insulin ([facility]/HCC HHS/HCC) HEMOGLOBIN, GLYCOSYLATED Routine 02/05/2024 Type 2 [...] included. Anatomical Region Laterality Modality Other 04/14/2024 [facility] Group Scanned SCANNING Final Resu lt * OUTSIDE LAB (SCAN ORDER) (04/14/2024) Only the most recent of8 resultswithin the time period is included. 04/14/2024 [facility] Scanned SCANNING Final Resu lt * PROSTATE SPECIFIC ANTIGEN,SCREENING (03/31/2024 9:55 AM AMMUNITION SPECIALIST) PSA 2.27 <4.00 NG/ML 03/31/2024 3:04 PM AMMUNITION SPECIALIST [facility] Comment: ASSAY PERFORMED BY [employer]MMUNOASSAY METHODOLOGY USING SIEMENS DIMENSION REAGENT. PATIENT RESULTS DETERMINED BY ASSAYS FROM DIFFERENT MANUFACTURERS AND/OR BY DIFFERENT METHODS MAY NOT BE COMPARABLE. 03/31/2024 9:55 AM AMMUNITION SPECIALIST Sandi LYNCH LABORATORY Final Resul t [facility] [address] [place] [address], [place] [phone] * (ABNORMAL) COMPREHENSIVE METABOLIC PANEL (03/31/2024 9:55 AM AMMUNITION SPECIALIST) [facility] SODIUM S/P/B 139 136 - 145 MMOL/L 03/31/2024 3:29 PM [facility] POTASSIUM S/P/B 4.2 3.5 - 5.1 MMOL/L 03/31/2024 3:29 PM [facility] CHLORIDE S/P/B 103 98 - 107 MMOL/L 03/31/2024 3:29 PM [facility] CO2 25.2 21 - 32 MMOL/L 03/31/2024 3:29 PM [facility] GLUCOSE 127(H) 70 - 99 MG/DL 03/31/2024 3:29 PM [facility] BUN 12 7 - 18 MG/DL 03/31/2024 3:29 PM [facility] CREATININE S/P/B 1.11 0.70 - 1.30 MG/DL 03/31/2024 3:29 PM [facility] CALCIUM S/P/B 9.1 8.4 - 10.5 MG/DL 03/31/2024 3:29 PM [facility] BILIRUBIN TOTAL S/P/B 0.6 0.2 - 1.0 MG/DL 03/31/2024 3:29 PM [facility] ALKALINE PHOSPHATASE S/P/B 76 45 - 115 U/L 03/31/2024 3:29 PM [facility] AST 28 15 - 37 U/L 03/31/2024 3:29 PM [facility] ALT 46 16 - 63 U/L 03/31/2024 3:29 PM [facility] TOTAL PROTEIN S/P/B 6.9 6.4 - 8.2 G/DL 03/31/2024 3:29 PM [facility] ALBUMIN S/P/B 3.8 3.4 - 5.0 G/DL 03/31/2024 3:29 PM AMMUNITION SPECIALIST [facility] ANION GAP 10.8 5 - 15 MMOL/L 03/31/2024 3:29 PM AMMUNITION SPECIALIST [facility] Comment:REFERENCE RANGE NOT ESTABLISHED OSMOLALITY (CALC) 289 MOSM/KG 025 3:29 PM [facility] Comment:REFERENCE RANGE NOT ESTABLISHED GFR ESTIMATE 74(L) >90 ML/MIN/1. 73 M2 03/31/2024 3:29 PM AMMUNITION SPECIALIST [facility] GFR NOTES GFR REFERENCE S: 03/31/2024 3:29 PM [facility] Comment: THE ESTIMATED GFR IS CALCULATED USING [...] FAILURE: <15 ml/min/1.73 m2 03/31/2024 9:55 AM AMMUNITION SPECIALIST us Sandi LYNCH LABORATORY Final Resul t [facility] MANT[facility] [address] [place] [address], * (ABNORMAL) CBC W/DIFF AUTOMATED (03/31/2024 9:55 AM AMMUNITION SPECIALIST) WBC 7.37 4.00 - 10.80 x10'3/uL 03/31/2024 3:14 PM AMMUNITION SPECIALIST [facility] RBC 4.34(L) 4.50 - 6.10 x10'6/uL 03/31/2024 3:14 PM [facility] HGB 13.2 13.0 - 18.0 G/DL 03/31/2024 3:14 PM [facility] HCT 38.9 37.0 - 52.0 % 03/31/2024 3:14 PM [facility] MCV 89.6 78.0 - 100.0 FL 03/31/2024 3:14 PM [facility] MCH 30.4 27.0 - 31.0 PG 03/31/2024 3:14 PM [facility] MCHC 33.9 33.0 - 36.0 G/DL 03/31/2024 3:14 PM [facility] RDW 14.0 11.5 - 14.5 % 03/31/2024 3:14 PM [facility] PLT 140(L) 150 - 350 x10'3/uL 03/31/2024 3:14 PM [facility] MPV 12.2(H) 7.4 - 10.4 FL 03/31/2024 3:14 PM [facility] DIFFERENTIAL TYPE AUTOMATED DIFFERENTIAL 03/31/2024 3:15 PM [facility] NEUTROPHILS % 73.8 % 03/31/2024 3:15 PM [facility] LYMPHOCYTES % 14.5 % 03/31/2024 3:15 PM [facility] MONOCYTES % 9.0 % 03/31/2024 3:15 PM [facility] EOSINOPHILS % 2.0 % 03/31/2024 3:15 PM [facility] BASOPHILS % 0.3 % 03/31/2024 3:15 PM [facility] IMMATURE GRANS % 0.4 % 03/31/2024 3:15 PM [facility] ABS. NEUTROPHILS 5.44 1.60 - 8.30 x10'3/uL 03/31/2024 3:15 PM AMMUNITION SPECIALIST [facility] ABS. LYMPHOCYTES 1.07 0.80 - 4.70 x10'3/uL 03/31/2024 3:15 PM AMMUNITION SPECIALIST [facility] ABS. MONOCYTES 0.66 0.00 - 1.50 x10'3/uL 03/31/2024 3:15 PM AMMUNITION SPECIALIST [facility] ABS. EOSINOPHILS 0.15 0.00 - 0.40 x10'3/uL 03/31/2024 3:15 PM AMMUNITION SPECIALIST [facility] ABS. BASOPHILS 0.02 0.00 - 0.20 x10'3/uL 03/31/2024 3:15 PM AMMUNITION SPECIALIST [facility] ABS. IMMATURE GRANULOCYTES 0.03 0.00 - 0.03 x10'3/uL 03/31/2024 3:15 PM AMMUNITION SPECIALIST [facility] 03/31/2024 9:55 AM AMMUNITION SPECIALIST us Sandi LYNCH LABORATORY Final Resul t [facility] [address] [place] [address], * (ABNORMAL) MG/PCCL UDS W CONF (03/31/2024 8:59 AM AMMUNITION SPECIALIST) RESULT SUMMARY [facility] Comment: Prescribed Prescribed Not Prescribed Consistent Inconsistent Inconsistent Hydrocodone Tramadol PRESCRIBED DRUG 1 (U) Hydrocodone [facility] PRESCRIBED DRUG 2 (U) Tramadol [facility] FENTANYL SCREEN (U) NEGATIVE <0.5 ng/mL [facility] MORPHINE (U) NEGATIVE <10 ng/mL [facility] [place] DESMETHYLTRAMADOL (U) NEGATIVE <100 ng/mL [facility] [...] [facility] NOTE [facility] Comment: This drug testing is for medical treatment only. Analysis was performed as non-forensic testing and these results should be used only by healthcare providers to render diagnosis or treatment, or to monitor progress of medical conditions. LDT Notes: Confirmation tests were developed and their analytical performance characteristics have been determined by [employer]. It has not been cleared or approved by the FDA. This assay has been validated pursuant to the CLIA regulations and is used for clinical purposes. medMATCH(R) enables providers to identify if drug use is consistent or inconsistent with a corresponding prescribed medication(s) list. Healthcare Providers needing Interpretation assistance, please contact us at [phone] ( ) M-F, 8am to 10pm EST URINE SPECIMEN / Unknown 03/31/2024 8:59 AM AMMUNITION SPECIALIST 03/31/2024 11:43 PM AMMUNITION SPECIALIST Narrative Resulting Agency Comment Performing Organization Information: Site ID: [id number] Name: [facility] Address: [address] [place] [address] Director: [place] Site ID: [id number] Name: [facility] Address: [address] [facility] [place] [address] Director: Velvet Juarez MD Sandi LYNCH URINE ORDERABLES Final Resu lt Performing Organization Address City/[facility]/ZIP Co de Phone Number [facility] [address] [place] [address], [facility] [place] [address] [place] [address] * IMAGE GENERIC (03/29/2024) Only the most recent of2 resultswithin the time period is included. Anatomical Region Laterality Modality Other 03/29/2024 Result [facility] vascular [facility] Scanned SCANNING Final Resu lt * OUTSIDE LAB COVID-19 (03/23/2024) Only the most recent of2 resultswithin the time period is included. [facility] CORONAVIRUS SARS COV 2 PCR (RESP) NOT DETECTED NOT DETECTED [facility] 03/23/2024 Result [facility] Scanned SCANNING Final Resu lt [facility] * OUTSIDE PT/INR (SCAN ORDER) (03/23/2024) Only the most recent of2 resultswithin the time period is included. 03/23/2024 Result [facility] Scanned SCANNING Final Resu lt * (ABNORMAL) ALBUMIN/CREATININE RATIO, RANDOM URINE (02/05/2024 11:04 AM AMMUNITION SPECIALIST) [facility] MICROALBUMIN (U) 635.8(H) <20 MG/L 02/05/20 3:47 PM AMMUNITION SPECIALIST [facility] CREATININE RANDOM (U) 87.3 MG/DL 02/05/2024 3:47 PM AMMUNITION SPECIALIST [facility] ALBUMIN/CREAT RATIO 728.3(H) <30 MG/G 02/05/2024 3:47 PM AMMUNITION SPECIALIST [facility] URINE SPECIMEN / Unknown 02/05/2024 11:04 AM AMMUNITION SPECIALIST Sandi LYNCH URINE ORDERABLES Final Resu lt Performing Organization Address City/[facility]/ZIP Co de Phone Number [facility] [address] [place] [address], * HEMOGLOBIN, GLYCOSYLATED (02/05/2024) Pathologist [facility] HGB A1C 6.5 % [facility] 02/05/2024 Sandi LYNCH LABORATORY Final Resul t Performing Organization Address [facility]/ZIP Co de Phone Number [facility] [address] [place] [address], [place] * (ABNORMAL) LIPID PANEL (05/13/2023 6:00 AM CDT) Pathologist [facility] CHOLESTEROL 87 <200 MG/DL 05/13/2023 7:18 AM CDT [facility] TRIGLYCERIDES 213(H) <150 MG/DL 05/13/2023 7:18 AM CDT [facility] HDL 24(L) >40.0 MG/DL 05/13/2023 7:18 AM CDT [facility] LDL (CALCULATED) 20 <100 MG/DL 05/13/2023 7:18 AM CDT [facility] NON HDL CHOLESTEROL 63 <130 MG/DL 05/13/2023 7:18 AM CDT [facility] CHOL/HDL RATIO 3.6 0.0 - 4.5 05/13/2023 7:18 AM CDT [facility] VLDL CALCULATION 43 5 - 55 MG/DL 05/13/2023 7:18 AM CDT [facility] LIPID INTERPRETATION 05/13/2023 7:18 AM CDT [facility] Comment: [facility] CONCENSUS REPORT RECOMMENDATIONS: ADULT CHILD LOW RISK: CHOLESTEROL <200 <170 TRIGLYCERIDE <150 --- HDL >=60 --- LDL <100 <110 BORDERLINE: CHOLESTEROL 200-239 170-199 TRIGLYCERIDE 150-199 --- HDL 40-59 --- LDL 100-159 110-129 HIGH RISK: CHOLESTEROL >=240 >=200 TRIGLYCERIDE >=200 --- HDL <40 --- LDL >=160 >=130 05/13/2023 6:00 AM CDT Ayanna Blelamy MD LABORATORY Final Re sult Performing Organization Address [facility]/ZIP Co de Phone Number [facility] [address] [place] [address], * DIABETIC RETINOPATHY EXAM (NEGATIVE) (04/20/2023) [facility] Scanned SCANNING Final Resu lt Performing Organization Address [facility] Co de Phone Number [facility] * HEPATITIS C ANTIBODY W/RFX [...] a test for HCV RNA (test code 34340) is suggested. For additional information please refer to http://education.[employer]/faq/NRH89n3 (This link is being provided for informational/ educational purposes only.) 06/28/2021 11:2 2 AM CDT 06/29/2021 10:18 AM CDT Sandi LYNCH LABORATORY Final Resul t [facility] [address] [place] [address] * CT CHEST WO CONT LOW DOSE [...] As above. Thank you for choosing the [facility]'s Lung Screening Program. Referred By: NICK [...] in the left lung base posteriorly. Implanted quality assurance monitor final device within the left chest subcutaneous tissues. [...] As above. Thank you for choosing the [facility] Lung Screening[facility]. Referred By: NICK HENDERSON [...] 11:13 PM 05/01/2017 6:00 PM Care Teams Superintendent Pipelines Relationship Specialty Start Date End Date Sandi Alfaro APNP Family [place] [address] PCP - General [employer] INSPECTOR 04/28/17 Cheryl Huston network systems analyst (Ambulatory) REGISTERED NURSE 03/23/19
--- OUTSIDE RECORDS SUMMARY | 2024-05-01 19:24 | XMS_ITS | Clinical Summary ---
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 Dx; Cryptogenic Stroke. DOI 10/12/[address] Willoughby. [employer] remote monitoring. 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 02/20/2015 Overview (06/07/2016): Coronary artery disease involving andreafski coronary artery of andreafski heart with other form of angina pectoris CVA, old, hemiparesis ([facility]) 02/20/2015 Overview (06/07/2016): CVA, old, hemiparesis Mixed diabetic hyperlipidemi a associated with type 2 diabetes mellitus ([facility]) 02/20/2015 Overview (06/07/2016): DM type 2 with diabetic dyslipidemia Hypertensive heart disease with congestive heart failure 02/20/2015 Overview (06/07/2016): Hypertensive heart disease with diastolic heart failure TAMIR on CPAP 10/17/2014 Overview (06/07/2016): TAMIR on CPAP Diabetes mellitus 10/17/2014 Overview (06/07/2016): DM (diabetes mellitus) Hypertension associated with diabetes 10/17/2014 Overview (06/07/2016): HTN (hypertension), benign Encounters Date Type Department Care Team Description 04/22/2024 Results Follow-Up [facility] Cardiology [address] [place] [address] Harini Mann RN Chest pain, unspecified type (Primary Dx); Cardiovascular stress test abnormal 04/21/2024 8:15 AM FILL MANAGER Ancillary Procedure [facility] Cardiology [address] [place] [address] [place] [phone] 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 (HCC) 04/20/2024 11:15 AM FILL MANAGER Ancillary Procedure [place] [address] [place] [phone] 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 (HCC) 04/11/2024 Telephone [place] [address] [place] [phone] Fernando Modi MD NM stress test instructions 04/04/2024 1:00 PM FILL MANAGER Ancillary Procedure [place] [address] [place] [phone] 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] on file Legal Sex Male 3:15 AM FILL MANAGER Gender Identity Male 09/03/2018 6:22 AM CDT Sexual Orientation Straight 09/03/2018 6: 22 AM CDT Obstetrics History Last Filed Vital Signs Vital Sign Reading Time Taken Comments Blood Pressure 132/72 03/28/2024 9:10 AM FILL MANAGER Pulse 82 01/18/2024 8:53 AM FILL MANAGER Temperature - - Respiratory Rate - - Oxygen Saturation 96% 03/28/2024 9:10 AM FILL MANAGER Inhaled Oxygen Concentration - - Weight 137.4 kg (303 lb) 03/28/2024 9:10 AM FILL MANAGER Height 182.9 cm (6') 03/28/2024 9:10 AM FILL MANAGER Body Mass Index 41.09 03/28/2024 9:10 AM FILL MANAGER Plan of Treatment Health Maintenance Due [...] Read Routine (OP Routine) 04/20/2024 12:17 PM FILL MANAGER 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 (HCC) TRANSTHORACIC ECHO (TTE) COMPLETE W DOPPLER/CF W CONTRAST Routine 04/04/2024 1:37 PM FILL MANAGER 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 (HCC) LIPID PANEL Routine 10/20/2023 from Last 3 Months or Most Recently Relevant to Health Maintenance Results * NM MPI SPECT (Rest and/or Stress) Multiple Studies (04/20/2024 12:17 PM FILL MANAGER) Anatomical Region Laterality Modality Body N/A Nuclear Medicine 04/20/2024 11:1 5 AM FILL MANAGER Narrative 04/21/2024 4:44 PM FILL MANAGER [facility] Cardiology [address] [facility] [address] [address] [address] [facility] [address], [place] [address] P:[phone] P:[phone] MPI Imaging Report Patient Name: SARA HALEYTomas HOLGUIN : 1960 Study Date: 04/20/2024 11:15:21 AM Gender: M Tech: [facility] Location: [facility] Provider: IFRAH GIBSON Height(Cm): 182.9 BSA: [...] Smoker, and I25.118 Atherosclerotic heart disease of andreafski coronary artery with other forms of angina [...] By: Husam Raymundo MD 04/21/2024 4:43:33 PM FILL MANAGER Electronically Signed By: Husam Raymundo MD 04/21/2024 4:43:33 PM FILL MANAGER Procedure Note Husam Raymundo MD - 04/21/2024 [facility] Cardiology [address] [facility] [address] [address] [address] [facility] [address], [place] [address] P:[phone] P:[phone] MPI Imaging Report Patient Name: KLAUDIA HALEY B : 1960 Study Date: 04/20/2024 11:15:21 AM Gender: M Tech: [facility] Location: [facility] Provider: IFRAH GIBSON Height(Cm): 182.9 BSA: [...] Smoker, and I25.118 Atherosclerotic heart disease of andreafski coronary artery withother forms of angina pectoris. [...] By: Husam Raymundo MD 04/21/2024 4:43:33 PM FILL MANAGER Electronically Signed By: Husam Raymundo MD 04/21/2024 4:43:33 PM FILL MANAGER us Ifrah Gibson STOCK SHEETS CLEANER INSPECTOR IMG NM PROCEDURES Final R esult * TRANSTHORACIC ECHO (TTE) COMPLETE W DOPPLER/CF W CONTRAST (04/04/2024 1:37 PM FILL MANAGER) LV EF 75 % CONS SCIMAGE Anatomical Region Laterality Modality Ultrasound 04/04/2024 12:5 7 PM FILL MANAGER Narrative 04/04/2024 3:50 PM FILL MANAGER [facility] [address], [place] [address] [address] [facility] [address], [place] [address] P:[phone] P:[phone] Echocardiographic Report Patient Name: KLAUDIA HALEY B : 1960 Study Date: 04/04/2024 12:57:00 PM Gender: M Tech: Location: [facility] Provider: IFRAH GIBSON Height(Cm): 183 BSA: 2.64 Weight(Kg): 137.4 Heart Rate: 79 BP: 132 / 72 Quality: Definity contrast agent used to enhance endocardial border definition Order Provider: IFRAH GIBSON PROCEDURES: Echocardiographic Report: Transthoracic echocardiogram with complete 2D, M-Mode, color Doppler examination and Definity contrast. INDICATIONS: Coronary Artery Disease, Shortness of breath, and I25.118 Atherosclerotic heart disease of andreafski coronary artery with other forms of angina [...] Site: Exam was interpreted at [facility]. Left Ventricle: Normal left ventricular size. [...] views. Electronically Signed By: Todd Kwan MD, [facility] 04/04/2024 3:49:55 PM FILL MANAGER Procedure Note Todd Kwan MD - 04/04/2024 [facility] Cardiology [address] [facility] [address] [address] [address] [facility] [address], [place] [address] P:[phone] P:[phone] Echocardiographic Report Patient Name: KLAUDIA HALEY B : 1960 Study Date: 04/04/2024 12:57:00 PM Gender: M Tech: Location: [facility] Provider: IFRAH GIBSON Height(Cm): 183 BSA: 2.64 Weight(Kg): 137.4 Heart Rate: 79 BP: 132 / 72 Quality: Definity contrast agent used to enhance endocardial borderdefinition Order Provider: IFRAH GIBSON PROCEDURES: Echocardiographic Report: Transthoracic echocardiogram with complete 2D, M-Mode, color Dopplerexamination and Definity contrast. INDICATIONS: Coronary Artery Disease, Shortness of breath, and I25.118 Atheroscleroticheart disease of andreafski coronary artery with other forms of angina [...] Site: Exam was interpreted at [facility]. Left Ventricle: Normal left ventricular size. [...] views. Electronically Signed By: Todd Kwan MD, [facility] 04/04/2024 3:49:55 PM FILL MANAGER Ifrah Gibson NP CV ECHO PROCEDURES Final [...] Recently Relevant to Health Maintenance Insurance MEDICARE [employer] MEDICARE [facility] Address: [address] [address] [place] [address] MEDICARE [employer] MEDICARE [facility] Address: [address] [address] [place] [address] Care Teams Rate Inserter Relationship Specialty Start Date End Date Sandi Alfaro PA PCP - General Nurse Practitioner 08/21/17
--- OUTSIDE RECORDS SUMMARY | 2024-05-01 19:24 | XMS_ITS | Encounter Summary ---
Author Organization [facility] Address [address] [place] [address] Care Team Providers Care Swedger Name Role Phone Sandi Alfaro Primary Care Provider [phone] Sandi Alfaro Unavailable [phone] Cheryl Huston RN Unavailable Unavailable Encounter Details Date Type Department Care Team (Latest Contact Info) Description 10/26/2017 Abstract [facility] , Shay Hughes MD [...] Sex Assigned at Male 03/31/2024 8:58 AM INSTALLATION TECH Legal Sex Male 8:01 PM CDT Gender [...] Rule Out 05/03/2020 05/03/2020 05/03/2020 3:25 PM INSTALLATION TECH COVID-19 Rule Out 05/12/2023 05/12/2023 05/13/2023 12:01 AM CDT Influenza - Seasonal 05/14/2023 05/14/2023 024 12:32 AM CDT documented as of this encounter Care Teams Swedger Relationship Specialty Start Date End Date Sandi Alfaro APNP Family & Internal Medicine [address] [address] PCP - General [employer] INS[employer]ANCE SALES SPECIALIST 04/28/17 Sandi Alfaro APNP [address] [place] [address] PCP - Med Group - MSSP Attributed Provider 03/02/15 03/01/22 Cheryl Huston, manager cosmetics (Ambulatory) REGISTERED NURSE 03/23/19 documented as of this encounter
--- OUTSIDE RECORDS SUMMARY | 2024-05-01 19:24 | XMS_ITS | Encounter Summary ---
Author Organization [facility] Address [address] [place] [address] Care Team Providers Care Helmet Hat Sweatband Puncher Name Role Phone Sandi Alfaro Primary Care Provider + Reason for Visit * Reason Onset Date Comments NM stress test instructions 04/11/2024 Encounter Details Date Type Department Care Team (Late st Contact Info) Description 04/11/[address] [facility] Cardiology [address] [facility] [address] [place] [address] Fernando Modi MD [address] [facility] [address] [place] [address] NM stress test instructions Social History Tobacco Use Types Packs/Day Years Used Date Smoking Tobacco: Some Days Cigarettes 0.3 15 Smokeless Tobacco: Never Alcohol Use Standard Drinks/Week Comments Yes 0 (1 standard drink = 0.6 oz pur e alcohol) Sex and Gender Information Value Date Recorded Sex Assigned at Not on file Legal Sex Male 3:15 AM HOT SAW HELPER Gender Identity Male 09/03/2018 6:22 AM CDT Sexual Orientation Straight 09/03/2018 6: 22 AM CDT documented as of this encounter Miscellaneous Notes * Telephone Encounter - Harini Mann RN - 04/11/2024 10:04 AM HOT SAW HELPER Instructions for upcoming stress test reviewed with pt. Pt verbalizes understanding. SAW HELPER * Telephone Encounter - Ilene Soni - 04/11/2024 9:58 AM CST Patient requesting a call back to go over NM stress test instructions. Please advise. Thank you. Contact [phone] SAW HELPER documented in this encounter Plan of Treatment Not on file documented as of this encounter Visit Diagnoses Not on filedocumented in this encounter Care Teams Helmet Hat Sweatband Puncher Relationship Specialty Start Date End Date Sandi Alfaro PA PCP - General Nurse Practitioner 08/21/17 documented as of this encounter
--- OUTSIDE RECORDS SUMMARY | 2024-05-01 19:24 | XMS_ITS | Referral Summary ---
Author Organization [facility] Address [address] [place] [address] Care Team Providers Care Transformer Shop Supervisor Name Role Phone Sandi Alfaro FILM LOADER-INSEAM TRIMMING MACHINE OPERATOR Primary Care Provider Source Comments [facility],non-owned Affiliates and Associated Physician Practices is amultiple site organization consisting of ambulatory clinics and hospital sitesin [place], [place], [place] and [place]. This disclosure is being madepursuant to the Care Everywhere program and may not contain all information available regarding this patient. Last updated 17.[facility] Allergies No known active allergies Medications * [...] ve Non-react kendell 05/26/2018 5:12 PM CDT [facility] Comment: Neither HIV-1 p24 Antigen nor HIV-1/HIV-2 Antibodies are detected. Blood BLOOD SPECIMEN / Unknown Venipuncture / Unknown 05/26/2018 4:21 PM CDT 05/26/2018 4:26 PM CDT Jim Ann MD LAB - HEMATOLOGY ORD ERABLES [facility] [address] [place] [address] * HEPATITIS C AB SCREEN RFLX NAAT QUANT (05/26/2018 4:21 PM CDT) Hepatitis C Antibody Non-react kendell Non-reac tive 05/26/2018 5:13 PM CDT [facility] Comment: Hepatitis C Antibody screen indicates [...] Ann MD LAB - CHEMISTRY LORENZA BULLARD [address] [phone] from Last 3 Months or Most Recently Relevant to Health Maintenance Insurance Payer Benefit Plan / Group Subscriber ID Effective Dates Phone Address Type MEDICARE S MEDICARE PART B [id number] 2015-Pres ent [address] [address] [place] [address] Medicare MEDICAID [facility] OF STATE MEDICAID - [place] PUBLIC AID [id number] Effective for all dates [address] [address] [place] [address] Medicaid MEDICARE MEDICARE PART A AND B [id number] 2015-Pres ent [address] [place] [address] Medicare [place] [id number] Effective for all dates [address] [address] [place] [address] Medicaid [place] Advance Directives * Full Code (Latest Code Status on File) Date Activated Date Inactivated Comments 05/26/2018 2:01 PM 05/28/2018 11:56 AM Care Teams Transformer Shop Supervisor Relationship Specialty Start Date End Date Sandi Alfaro, FILM LOADER-INSEAM TRIMMING MACHINE OPERATOR [address] [place] [address] PCP - General 08/27/21
[2024-05-01] MEDS: NITROGLYCERIN SL 0.4 MG TABLET SUBLINGUAL (19:42)
[2024-05-01] MEDS: ONDANSETRON INJ 4 MG/2 ML VIAL IV PUSH ×2 (19:51→21:26)
--- NOTE | 2024-05-01 19:54 | PC.NURSE ---
Pt given 1st nitroglycerin at 1941, pt was rating pain 8/10, upon assessment at 1946 pt states he felt dizzy and nauseous, pt's BP dropped to 89/55. EDP made aware, no additional nitroglycerin given, 4 mg of zofran ordered by Dr. Larson. Continuing to monitor pt condition at this time.
[2024-05-01 20:15] VITALS: BP 121/75; PULSE 83; RESP 18; O2SAT 96
[2024-05-01] MEDS: MORPHINE SULFATE (*CRX) 4 MG/ML INJ IV PUSH (20:25)
--- NOTE | 2024-05-01 20:28 | ED_ITS ---
HPI - General Adult General Chief complaint: Chest Pain Stated complaint: heart pain Time Seen by Provider: 05/01/24 19:09 History of Present Illness HPI narrative: Patient is a 64-year-old gentleman presents emergency department with chief complaint of chest pain. Patient reports the last 15 minutes then having pain on left side of his chest. Patient reports that he has had prior history of MIs has stent placements and reports that he is scheduled for cardiac catheterization on the the patient states that he took a nitroglycerin that helped a little bit with the pain and reports that he is still having some discomfort in his chest. Related Data Home Medications ?Medication ?Instructions ?Recorded ?Confirmed ?Last Taken ?Type amlodipine 10 mg tablet 10 mg PO DAILY 01/24/19 02/25/24 12/24/23 History bupropion HCl 150 mg tablet,12 hr 150 mg PO BID 01/24/19 02/25/24 12/24/23 History sustained-release (Wellbutrin SR) doxazosin 2 mg tablet (Cardura) 2 mg PO HS 01/24/19 02/25/24 12/24/23 History dulaglutide 1.5 mg/0.5 mL 1.5 mg subcut WEEKLY 01/24/19 02/25/24 12/18/23 History subcutaneous pen injector (Trulicity) metformin 1,000 mg tablet 1,000 mg PO BID 01/24/19 02/25/24 12/24/23 History rivaroxaban 2.5 mg tablet (Xarelto) 2.5 mg PO BID 01/24/19 02/25/24 12/24/23 History omeprazole 40 mg capsule,delayed 40 mg PO DAILY 04/13/19 02/25/24 12/24/23 History release atorvastatin 40 mg tablet 80 mg PO HS 05/16/19 02/25/24 12/23/23 History albuterol sulfate 90 mcg/actuation 2 puff inhalation Q4-6H PRN 01/09/20 02/25/24 12/24/23 History aerosol inhaler (Ventolin HFA) Shortness Of Breath isosorbide mononitrate 60 mg 120 mg PO DAILY 01/09/20 02/25/24 12/24/23 History tablet,extended release 24 hr loratadine 10 mg tablet (Claritin) 10 mg PO DAILY 03/15/20 02/25/24 12/24/23 History alprazolam 0.25 mg tablet 0.25 mg PO HS 08/21/21 02/25/24 12/24/23 History aspirin 81 mg chewable tablet 81 mg PO DAILY 09/29/21 02/25/24 12/24/23 History (Children's Aspirin) tamsulosin 0.4 mg capsule 0.4 mg PO DAILY 12/25/23 02/25/24 12/24/23 History empagliflozin 10 mg tablet mg 02/25/24 02/25/24 Unknown History (Jardiance) Allergies Allergy/AdvReac Type Severity Reaction Status Date / Time No Known Allergies Allergy Unknown Verified 05/01/24 18:11 Review of Systems 2 Review of Systems: A 10 system review of systems was completed on the patient and is negative except for what is stated in the HPI. Nursing and ancillary documentation was reviewed. [facility] Past Medical History Medical History NSTEMI (non-ST elevated myocardial infarction) Coronary artery disease Stent to the distal circumflex and Left anterior descending in 2014. Left anterior descending stent in 04/2015. COVID Transient ischemic attack Diabetic peripheral neuropathy Peripheral vascular disease Deep venous thrombosis Gastric ulcer Obstructive sleep apnea on CPAP Hyperlipidemia Hypertension Type 2 diabetes mellitus Gastroesophageal reflux disease Chronic obstructive pulmonary disease Cerebrovascular accident Mild left-sided weakness. Congestive heart failure BMI greater than 40 Chronic anticoagulation Hydronephrosis Angina at rest Psoriasis Depression Fracture of fifth toe, right, closed Kidney stones Pneumonia Myocardial infarction Seasonal allergies Surgical History Surgical History History of tonsillectomy History of cholecystectomy History of lithotripsy History of heart artery stent X2. History of rectal polypectomy History of cardiac catheterization 2 stents Family History Family History Mother Diabetes mellitus Arthritis Kidney stones Coronary artery disease Father Acute myocardial infarction Heart disease Kidney stones Hypertension Coronary artery disease Sibling Coronary artery disease Heart disease Hx of CABG Social History Social History Social History: Surrogate decision maker: Rena Dodd, friend. Code status: Full code. Smoking packs per day: 0.5 Smoking cigarettes per day: 10.0 Years smoked: 44 Smoking pack-years: 22.00 Smoking status: Current every day smoker Tobacco type: cigarettes Second hand tobacco smoke exposure: Yes Alcohol intake: never Substance use: never Substance use type: does not use Do You Feel Safe in your Home?: Yes Lack of Transportation: No Lack of Food: Never True Current Housing: I Have Housing Concerned About Future Housing: No Difficulty Paying Gas/Electric Bills: No Difficulty Paying for Meds: No Currently Unemployed: No Education: High School Diploma/GED Difficulty w/ Childcare or Family Care: No Living arrangements: with roommate(s) Additional living arrangements comments: The patient lives in [place] with a roommate. He has no children. Occupation/Education: other Additional occupation/education comments: Disabled. Spiritual care concerns: No Exam 2 Narrative: GENERAL: Well-appearing, well-nourished, and in no acute distress. HEAD: Normocephalic, atraumatic. EYES: PERRLA and EOMI. ENT: Nares clear, no rhinorrhea or epistaxis. Mucous membranes moist. NECK: Supple. CHEST: Clear to auscultation. No respiratory distress. HEART: Regular rate and rhythm. No murmur heard. Normal peripheral pulses. ABDOMEN: Soft, nontender, nondistended, normal active bowel sounds. EXTREMITIES: Normal range of motion. No edema. SKIN: Warm, dry, no rash. NEURO: No focal deficits. Alert and oriented x3. PSYCH: Normal mood and affect. Course Vital Signs Vital signs: Vital Signs Temperature 36.4 C L 05/01/24 18:09 Pulse Rate 89 05/01/24 18:09 Respiratory Rate 20 05/01/24 18:09 Blood Pressure 114/65 05/01/24 18:09 Pulse Oximetry 98 05/01/24 18:09 Oxygen Delivery Room Air 05/01/24 18:09 Temperature 36.4 C L 05/01/24 18:09 Pulse Rate 83 05/01/24 20:15 Respiratory Rate 18 05/01/24 20:15 Blood Pressure 121/75 05/01/24 20:15 Pulse Oximetry 96 05/01/24 20:15 Oxygen Delivery Room Air 05/01/24 18:38 Medical Decision Making MDM Narrative Medical decision making narrative: Differential diagnosis includes ACS, chest wall pain, rib fracture, pneumothorax, Laboratory studies were obtained on the patient showed normal CBC CMP was within normal limits liver enzymes are normal initial troponin was negative Chest x-ray showed a possible nondisplaced fracture of the right 6th rib there is no history of trauma EKG showed no acute ischemic changes Vital Signs Vital Signs: Vital Signs Temperature 36.4 C L 05/01/24 18:09 Pulse Rate 89 05/01/24 18:09 Respiratory Rate 20 05/01/24 18:09 Blood Pressure 114/65 05/01/24 18:09 Pulse Oximetry 98 05/01/24 18:09 Oxygen Delivery Room Air 05/01/24 18:09 Temperature 36.4 C L 05/01/24 18:09 Pulse Rate 83 05/01/24 20:15 Respiratory Rate 18 05/01/24 20:15 Blood Pressure 121/75 05/01/24 20:15 Pulse Oximetry 96 05/01/24 20:15 Oxygen Delivery Room Air 05/01/24 18:38 Lab Data 05/01/24 18:10 05/01/24 18:10 Labs: Lab Results 05/01/24 05/01/24 05/01/24 Range/Units 18:10 20:54 21:05 WBC 6.9 (4.5-10.0) K/mm3 RBC 4.47 L (4.6-6.20) M/mm3 Hgb 13.7 L (14.0-18.0) g/dL Hct 40.3 L (42.0-52.0) % MCV 90.2 (80-100) fl MCH 30.6 (26-34) pg MCHC 34.0 (32-36) g/dl RDW 13.9 (11.5-14.5) % Plt Count 123 L (150-375) k/mm3 MPV 10.8 H (7.4-10.4) fl Immature Gran % (Auto) 0.3 (0-0.5) % Neut % (Auto) 69.9 (45.5-73.1) % Lymph % (Auto) 17.7 L (18.3-44.2) % [place] % (Auto) 10.1 H (2.6-8.5) % Eos % (Auto) 1.7 (0-4.4) % Baso % (Auto) 0.3 (0.2-1.2) % Lymph # (Auto) 1.22 (0.9-3.2) K/mm3 [place] # (Auto) 0.7 H (0.1-0.6) K/mm3 Eos # (Auto) 0.1 (0-0.3) K/mm3 Baso # (Auto) 0.0 (0.0-0.1) K/mm3 Abs Immat Gran (auto) 0.02 (0.00-0.031) K/mm3 Absolute Neuts (auto) 4.8 (1.3-6.7) K/mm3 Absolute Nucleated RBC 0.000 (0.0-0.012) K/mm3 Nucleated RBC % 0.0 (0.0-0.2) % % Immature Plt Fraction 6.1 (0.9-11.2) % PT 15.0 H (11.1-14.7) Seconds INR 1.1 APTT 31.8 (22.3-36.8) Seconds Sodium 138 (137-145) mmol/L Potassium 4.2 (3.4-5.0) mmol/L Chloride 103 (98-107) mmol/L Carbon Dioxide 25 (22-30) mmol/L Anion Gap 10 (4-12) mmol/L BUN 17 (9-20) mg/dL Creatinine 1.28 (0.7-1.3) mg/dL Estim Creat Clear Calc 74 ml/min Estimated GFR 56 L (59 - ) Glucose 144 H (65-110) mg/dL POC Capillary Glucose 137 H (65-105) mg/dl Calcium 8.9 (8.4-10.2) mg/dL Total Bilirubin 0.9 (0.2-1.3) mg/dL AST 28 (17-59) U/L ALT 46 (6-50) U/L Alkaline Phosphatase 66 (38-126) U/L Troponin I < 0.012 < 0.012 (0.000-0.034) ng/mL Total Protein 7.0 (6.3-8.2) g/dL Albumin 4.3 (3.5-5.1) g/dL Lipase 118 (23-300) U/L Discharge Plan Discharge Clinical Impression: Chest pain Qualifiers: Chest pain type: unspecified Qualified Code(s): R07.9 - Chest pain, unspecified Patient Disposition: Still a Patient Condition: Stable Patient Language: Upper Sorbian Prescriptions: No Action Jardiance 10 mg tablet azithromycin 250 mg tablet See Rx Instructions .ROUTE .COMPLEX Qty: 6 0RF Rx Instructions: For 250 mg dose pack: take 500 mg today (day 1), then 250 mg for 4 days (days 2-5) albuterol sulfate 90 mcg/actuation HFA aerosol inhaler 2 puff inhalation Q4-6H PRN (Reason: shortness of breath or wheezing) 30 Days Qty: 8.5 0RF amoxicillin-pot clavulanate 875-125 mg tablet 1 tablet PO Q12H 7 Days Qty: 14 0RF omeprazole 40 mg capsule,delayed release(DR/EC) 40 mg PO DAILY isosorbide mononitrate 60 mg tablet extended release 24 hr 120 mg PO DAILY albuterol sulfate [Ventolin HFA] 90 mcg/actuation HFA aerosol inhaler 2 puff INHALATION Q4-6H PRN (Reason: Shortness Of Breath) loratadine [Claritin] 10 mg Tablet 10 mg PO DAILY aspirin [Children's Aspirin] 81 mg tablet,chewable 81 mg PO DAILY meclizine 25 mg tablet 25 mg PO TID PRN (Reason: dizzines) Qty: 30 0RF bupropion HCl [Wellbutrin SR] 150 mg tablet sustained-release 12 hr 150 mg PO BID amlodipine 10 mg tablet 10 mg PO DAILY metformin 1,000 mg tablet 1,000 mg PO BID doxazosin [Cardura] 2 mg tablet 2 mg PO HS Trulicity 1.5 mg/0.5 mL pen injector 1.5 mg SUBCUT WEEKLY Rx Instructions: TAKES ON fridays Xarelto 2.5 mg tablet 2.5 mg PO BID atorvastatin 40 mg tablet 80 mg PO HS alprazolam 0.25 mg tablet 0.25 mg PO HS Rx Instructions: at bedtime tamsulosin 0.4 mg capsule 0.4 mg PO DAILY cyclobenzaprine 10 mg tablet 10 mg PO TID PRN (Reason: muscle spasm) Qty: 20 0RF Follow-up/Referrals: Angelina,JOVITA Junior [Primary Care Provider] - Time of Disposition: 21:37
--- NOTE | 2024-05-01 20:46 | P.HP_ITS ---
H&P: HPI History of Present Illness Date/Time: 05/01/24 20:46 Chief Complaint: Chest Pain Narrative: 64 y/o M presents here with chest pain with PMH of NSTEMI, CAD, TIA, peripheral vascular disease, DVT, TAMIR on CPAP, HLD, HTN, dm, CVA, COPD, CHF, psoriasis, and WI. The patient presents here from home for further evaluation of chest pain. He reports onset approximately 15 minutes prior to arrival to the emergency department. He describes the chest pain as left-sided, pressure, achy, radiating into his left arm and neck, intermittent, duration varies 5-20 mins, no aggravating factors, and alleviated briefly by nitro. The patient took sublingual nitro x1 with some improvement in the pain, however pain continues to return. He reports the chest pain is accompanied by nausea, diaphoresis, shortness of breath, dizziness, and fatigue. The patient self reports a positive stress test at the end of last month through [facility]. He has a outpatient cardiac catheterization scheduled on 05/05 with [facility]. He has a history of coronary artery disease and cardiac stent placement x2. Possible rib fracture on the right seen on XR. Patient denies any right sided chest wall pain or trauma to this area. Initial VS at presentation: 97.5? F, HR 89, R 20, 114/65, and 98% on RA. ED workup showed: No leukocytosis, hemoglobin 13.7, INR 1.1, no significant electrolyte derangements, creatinine 1.28 and GFR 56 (previously 1.11 and GFR >60 on 04/14/2024), initial troponin negative. CXR showed possible fracture of the right 6 rib (correlate clinically) and no acute cardiopulmonary pathology. Initial EKG showed sinus rhythm and right bundle branch block (awaiting formal read). Review of Systems Review of Systems: All systems reviewed & are unremarkable except as noted in HPI and below [facility] Past Medical History Medical History NSTEMI (non-ST elevated myocardial infarction) Coronary artery disease Stent to the distal circumflex and Left anterior descending in 2014. Left a nterior descending stent in 04/2015. COVID Transient ischemic attack Diabetic peripheral neuropathy Peripheral vascular disease Deep venous thrombosis Gastric ulcer Obstructive sleep apnea on CPAP Hyperlipidemia Hypertension Type 2 diabetes mellitus Gastroesophageal reflux disease Chronic obstructive pulmonary disease Cerebrovascular accident Mild left-sided weakness. Congestive heart failure BMI greater than 40 Chronic anticoagulation Hydronephrosis Angina at rest Psoriasis Depression Fracture of fifth toe, right, closed Kidney stones Pneumonia Myocardial infarction Seasonal allergies Surgical History Surgical History History of tonsillectomy History of cholecystectomy History of lithotripsy History of heart artery stent X2. History of rectal polypectomy History of cardiac catheterization 2 stents Family History Family History Mother Diabetes mellitus Arthritis Kidney stones Coronary artery disease Father Acute myocardial infarction Heart disease Kidney stones Hypertension Coronary artery disease Sibling Coronary artery disease Heart disease Hx of CABG Social History Social History Social History: Surrogate decision maker: Rena Dodd, friend. Code status: Full code. Smoking packs per day: 0.5 Smoking cigarettes per day: 10.0 Years smoked: 44 Smoking pack-years: 22.00 Smoking status: Current every day smoker Tobacco type: cigarettes Second hand tobacco smoke exposure: Yes Alcohol intake: never Substance use: never Substance use type: does not use Do You Feel Safe in your Home?: Yes Lack of Transportation: No Lack of Food: Never True Current Housing: I Have Housing Concerned About Future Housing: No Difficulty Paying Gas/Electric Bills: No Difficulty Paying for Meds: No Currently Unemployed: No Education: High School Diploma/GED Difficulty w/ Childcare or Family Care: No Living arrangements: with roommate(s) Additional living arrangements comments: The patient lives in [place] with a roommate. He has no children. Occupation/Education: other Additional occupation/education comments: Disabled. Spiritual care concerns: No Meds Home Medications and Allergies Home Medications ?Medication ?Instructions ?Recorded ?Confirmed ?Type amlodipine 10 mg tablet 10 mg PO DAILY 01/24/19 02/25/24 History bupropion HCl 150 mg tablet,12 hr 150 mg PO BID 01/24/19 02/25/24 History sustained-release (Wellbutrin SR) doxazosin 2 mg tablet (Cardura) 2 mg PO HS 01/24/19 02/25/24 History dulaglutide 1.5 mg/0.5 mL 1.5 mg subcut WEEKLY 01/24/19 02/25/24 History subcutaneous pen injector (Trulicity) metformin 1,000 mg tablet 1,000 mg PO BID 01/24/19 02/25/24 History rivaroxaban 2.5 mg tablet (Xarelto) 2.5 mg PO BID 01/24/19 02/25/24 History omeprazole 40 mg capsule,delayed 40 mg PO DAILY 04/13/19 02/25/24 History release atorvastatin 40 mg tablet 80 mg PO HS 05/16/19 02/25/24 History albuterol sulfate 90 mcg/actuation 2 puff inhalation Q4-6H PRN 01/09/20 02/25/24 History aerosol inhaler (Ventolin HFA) Shortness Of Breath isosorbide mononitrate 60 mg 120 mg PO DAILY 01/09/20 02/25/24 History tablet,extended release 24 hr loratadine 10 mg tablet (Claritin) 10 mg PO DAILY 03/15/20 02/25/24 History alprazolam 0.25 mg tablet 0.25 mg PO HS 08/21/21 02/25/24 History aspirin 81 mg chewable tablet 81 mg PO DAILY 09/29/21 02/25/24 History (Children's Aspirin) tamsulosin 0.4 mg capsule 0.4 mg PO DAILY 12/25/23 02/25/24 History meclizine 25 mg tablet 25 mg PO TID PRN dizzines #30 tabs 01/29/24 02/25/24 Rx albuterol sulfate 90 mcg/actuation 2 puff inhalation Q4-6H PRN 02/25/24 02/25/24 Rx aerosol inhaler shortness of breath or wheezing 30 days #8.5 grams amoxicillin 875 mg-potassium 1 tablet PO Q12H 7 days #14 tabs 02/25/24 02/25/24 Rx clavulanate 125 mg tablet azithromycin 250 mg tablet See Rx Instructions PO .COMPLEX #6 02/25/24 02/25/24 Rx tabs empagliflozin 10 mg tablet mg 02/25/24 02/25/24 History (Jardiance) cyclobenzaprine 10 mg tablet 10 mg PO TID PRN muscle spasm #20 04/14/24 Rx tabs Allergies Allergy/AdvReac Type Severity Reaction Status Date / Time No Known Allergies Allergy Unknown Verified 05/01/24 18:11 Vital Signs Vital Signs - 24 hr 05/01/24 18:09 05/01/24 18:38 05/01/24 20:15 Temperature 97.5 F L Pulse Rate 89 83 Respiratory Rate 20 18 Blood Pressure 114/65 121/75 Pulse Oximetry 98 97 96 Oxygen Delivery Room Air Room Air Exam Const: General: comfortable and no acute distress Other: , male, obese body habitus, nontoxic appearance HENMT: Face/Nose/Sinus: Normal nares present Mouth: Yes moist mucous membra raisa Eyes: General: appearance normal, both eyes and all related structures Sclera: sclerae normal Pupils: Equal, round and reactive pupils present EOM: EOMs intact bilaterally Resp: Effort & Inspection: normal respiratory effort Auscultation: clear to auscultation bilaterally Cardio: Rate: regular rate Rhythm: regular rhythm Other: S1-S2 present without murmur, rub, ectopy GI: Other: Abdomen rounded, soft, nontender. Skin: General skin exam: normal color and no rashes or lesions noted Wounds: no wounds Neuro: Speech: normal speech Motor exam (neuro): 5/5 motor strength present throughout Sensory Exam: normal sensation Other: A&O x4 Extrem: General: normal to inspection Psych: Mental Status: mental status grossly normal Affect: normal affect Other: good insight and judgment, pleasant H&P: Results Labs Labs: Short CBC 05/01/24 Range/Units 18:10 WBC 6.9 (4.5-10.0) K/mm3 Hgb 13.7 L (14.0-18.0) g/dL Hct 40.3 L (42.0-52.0) % Plt Count 123 L (150-375) k/mm3 BMP 05/01/24 18:10 Sodium 138 Potassium 4.2 Chloride 103 Carbon Dioxide 25 BUN 17 Creatinine 1.28 Glucose 144 H Calcium 8.9 Cardiac Enzymes 05/01/24 Range/Units 18:10 Troponin I < 0.012 (0.000-0.034) ng/mL Liver Function 05/01/24 Range/Units 18:10 Total Bilirubin 0.9 (0.2-1.3) mg/dL AST 28 (17-59) U/L ALT 46 (6-50) U/L Alkaline Phosphatase 66 (38-126) U/L Albumin 4.3 (3.5-5.1) g/dL Assessment and Plan Assessment and plan (1) Chest pain: Qualifiers: Chest pain type: unspecified Qualified Code(s): R07.9 - Chest pain, unspecified Code(s): R07.9 - Chest pain, unspecified Status: Acute Assessment and Plan: - EKG, initial: Sinus rhythm, rate 88, right bundle branch block. When compared to EKG done on 03/23/2024, there are no significant changes. Awaiting formal read. - CXR: Possible fracture in the right sixth rib. Clinical correlation advised. Otherwise, No acute cardiopulmonary pathology - Troponin: < 0. 012, 3 and 6 hour ordered - ASA 324 given - SL nitro PRN - cardiology consulted, awaiting recs - started on heparin gtt - continue daily statin and ASA 81 - echo, previous (03/2020): Normal systolic function, estimated EF 65-70%. See report for details. - stress test, previous (2020): 1. No definite ischemia or infarct. 2. Normal left ventricular ejection fraction measuring 68%. -cardiac catheterization, previous (02/06/2023): 1. Right coronary dominant circulation with overall good revascularization with previously deployed stents in the LAD and circumflex remaining patent. 2. Acute coronary syndrome / non ST elevation WI appears to be due to occlusion of a very tiny 1st OM 1 branch that arises at a tiny ramus intermedius which was patent in 2021 and has become occluded. This is a tiny vessel no more than 1 mm in diameter and of course not suitable for PCI 3. Vigorous left ventricular systolic function - telemetry monitoring (2) Type 2 diabetes mellitus: Qualifiers: Diabetes mellitus complication detail: with unspecified neuropathy Diabetes mellitus complication status: with neurologic complications Diabetes mellitus group home insulin use: with joint terminal attack controller use Qualified Code(s): E11.40 - Type 2 diabetes mellitus with diabetic neuropathy, unspecified; Z79.4 - custodial (current) use of insulin Code(s): E11.9 - Type 2 diabetes mellitus without complications Status: Acute Assessment and Plan: - hypoglycemia protocol - POC blood glucose ACHS - reviewed home medications - correct regimen ordered - high dose TIDWM, based off BMI - A1C 7.6% in April of 2022, update (3) HTN (hypertension): Qualifiers: Hypertension type: primary hypertension Qualified Code(s): I10 - Essential (primary) hypertension Code(s): I10 - Essential (primary) hypertension Status: Chronic Assessment and Plan: - chronic, currently 121/75 - continue home medications - monitor (4) Obstructive sleep apnea on CPAP: Code(s): G47.33 - Obstructive sleep apnea (adult) (pediatric); Z99.89 - Dependence on other enabling machines and devices Status: Acute Assessment and Plan: - continue home CPAP Plan Diet: Heart healthy GI Prophylaxis: Not currently indicated DVT Prophylaxis: Xarelto Lines: Peripheral Code Status: Full code Quality VTE Prophylaxis VTE prophylaxis: pharmacologic ordered Hospitalist [facility] Advance Care Plan I have confirmed that the patient's Advanced Care Plan is present, code status is documented, or surrogate decision maker is listed in patient medical record.: Yes Medication Reconciliation I have utilized all available resources to obtain, update and review the patients current medications (includes all prescriptions, OTC, herbals, cannabis, and nutritional supplements).: Yes
[2024-05-01 21:08] LABS: Glucose Point of Care 137 mg/dl (65-105)
[2024-05-01 21:21] LABS: Troponin I < 0.012 ng/mL (0.000-0.034)
[2024-05-01 23:46] VITALS: BP 110/64; PULSE 81; RESP 21; O2SAT 95
[2024-05-02] VITALS (13 sets, daily range): BP systolic 109–138; BP diastolic 47–83; PULSE 67–86; RESP 16–18; TEMP 36.3–36.8; O2SAT 94–98; BMI 41.8
[2024-05-02 00:31] LABS: Troponin I < 0.012 ng/mL (0.000-0.034)
[2024-05-02 05:14] LABS: Basophils Percent Auto 0.3 % (0.2-1.2); Eosinophils Absolute Auto 0.2 K/mm3 (0-0.3); Eosinophils Percent Auto 2.3 % (0-4.4); Hematocrit 38.1 % (42.0-52.0); Hemoglobin 13.1 g/dL (14.0-18.0); Immature Granulocyte Absolute 0.01 K/mm3 (0.00-0.031); Immature Granulocyte Percent A 0.1 % (0-0.5); Immature Platelet Fraction Pct 5.9 % (0.9-11.2); Lymphocytes Absolute Auto 1.41 K/mm3 (0.9-3.2); Lymphocytes Percent Auto 20.3 % (18.3-44.2); Mean Corpuscular HGB Conc 34.4 g/dl (32-36); Mean Corpuscular Volume 90.3 fl (80-100); Mean Platelet Volume 11.1 fl (7.4-10.4); Monocytes Absolute Auto 0.8 K/mm3 (0.1-0.6); Monocytes Percent Auto 11.4 % (2.6-8.5); Neutrophils Absolute Auto 4.6 K/mm3 (1.3-6.7); Neutrophils Percent Auto 65.6 % (45.5-73.1); Platelet Count Result 107 k/mm3 (150-375); Red Blood Count 4.22 M/mm3 (4.6-6.20); Red Cell Distribution Width 14.1 % (11.5-14.5)
[2024-05-02 05:21] LABS: Anion Gap 11 mmol/L (4-12); Blood Urea Nitrogen 21 mg/dL (9-20); Calcium 8.8 mg/dL (8.4-10.2); Carbon Dioxide 22 mmol/L (22-30); Chloride 104 mmol/L (98-107); Estimated CRCL calculation 80 ml/min; Estimated Glomerular Filt Rate > 60; Glucose 143 mg/dL (65-110); Potassium 4.3 mmol/L (3.4-5.0); Sodium 137 mmol/L (137-145)
[2024-05-02] MEDS: EMPAGLIFLOZIN 10 MG TABLET PO (08:56)
[2024-05-02] MEDS: buPROPion HCL SR (12 HR) 150 MG TAB PO ×2 (08:56→20:37)
[2024-05-02] MEDS: LOSARTAN POTASSIUM 100 MG TABLET PO (08:56)
[2024-05-02] MEDS: amLODIPine BESYLATE 10 MG TABLET PO (08:56)
[2024-05-02] MEDS: ASPIRIN 81 MG CHEWABLE TABLET PO (08:56)
[2024-05-02] MEDS: ISOSORBIDE MONONITRATE 60 MG TAB.ER.24H 120 MG PO (08:56)
[2024-05-02] MEDS: PANTOPRAZOLE 40 MG TABLET PO ×2 (08:57→20:38)
[2024-05-02 09:10] LABS: Glucose Point of Care 165 mg/dl (65-105)
[2024-05-02 09:52] LABS: Hemoglobin A1C 6.8 % (<5.7)
[2024-05-02] MEDS: carvediloL 12.5 MG TABLET PO ×2 (11:44→20:38)
[2024-05-02] MEDS: ACETAMINOPHEN 325 MG TABLET 650 MG PO (11:44)
--- NOTE | 2024-05-02 12:35 | ADMGEN ---
This patient, Vini Zambrano, was admitted to IMU Room 209-01 at 0822. Patient/family oriented to hospital policies and general routines including ID bracelet, bed and alarms, visiting hours, pain management, procedures, bathroom and other care routines, personal items, smoking policy, room service/diet, and visiting hours. Information on how to activate the Rapid Response Team has been discussed. Patient/Family are encouraged to report perceived risks to care and to ask questions if they do not understand what they are told or what they should do.
[2024-05-02 12:58] LABS: Glucose Point of Care 135 mg/dl (65-105)
--- NOTE | 2024-05-02 13:35 | PM.CNCAR ---
Assessment and Plan Assessment and plan (1) Chronic heart failure with preserved ejection fraction (HFpEF): Code(s): I50.32 - Chronic diastolic (congestive) heart failure Status: Acute (2) Chest pain: Qualifiers: Chest pain type: unspecified Qualified Code(s): R07.9 - Chest pain, unspecified Code(s): R07.9 - Chest pain, unspecified Status: Acute (3) HLD (hyperlipidemia): Qualifiers: Hyperlipidemia type: unspecified Qualified Code(s): E78.5 - Hyperlipidemia, unspecified Code(s): E78.5 - Hyperlipidemia, unspecified Status: Chronic Plan 63-year-old man with CAD status post PCI to proximal LAD and left circumflex, chronic diastolic heart failure, CVA, hypertension, hyperlipidemia, diabetes type 2, and TAMIR on CPAP presents to the hospital with chest discomfort Chest discomfort -differential is broad including old rib fracture, PE, coronary artery disease, and heart failure -given his abnormal stress test, please keep NPO past midnight for left heart catheterization to define his coronary anatomy tomorrow -continue holding his Xarelto -he is on maximally tolerated antianginal is to include amlodipine, Imdur, carvedilol -start Lasix 40 mg IV daily Chronic diastolic heart failure -well patient is obese, his symptoms does suggest a degree of volume overload -start Lasix 40 mg IV daily and monitor to see if symptoms improve such as is orthopnea and chest discomfort and shortness of breath Coronary artery disease status post PCI -he is willing to take Plavix should he require another stent -after his previous stents, he was eventually taken off P2 Y 12 inhibitor and started on Xarelto 2.5 mg p.o. b.i.d. -continue aspirin 81 mg p.o. daily and carvedilol 12.5 mg p.o. b.i.d. Hyperlipidemia -continue atorvastatin 80 mg every evening History of Present Illness History of Present Illness Consult date/time: 05/02/24 13:35 Requesting physician: Marlene Garcia APRN Consult reason: chest pain Reason For Visit: Chest pain Narrative: 63-year-old man with CAD status post PCI to proximal LAD and left circumflex, chronic diastolic heart failure, CVA, hypertension, hyperlipidemia, diabetes type 2, and TAMIR on CPAP presents to the hospital with chest discomfort. He has been having worsening exertional chest discomfort for the past 2 months now. He had associated shortness of breath. Previously he was able to walk to the mailbox without any significant cardiopulmonary limitations however he now has significant shortness of breath upon ambulating to his mailbox. He also has worsening chest discomfort with deep breaths. He has been following up with me in the outpatient clinic where he started to report his cardiopulmonary symptoms in January for which a nuclear stress test was performed showing a small size [id number] intensity ischemic defect in RCA territory however patient did have diaphragm and gut attenuation artifact and was unable to prone for the study. Nevertheless given his symptoms, he was scheduled for a cardiac catheterization this week however given his persistent and worsening chest discomfort he proceeded to the emergency room. His chest discomfort does become or alleviated with nitroglycerin. Review of Systems Cardiovascular: Cardiovascular: Reports as per HPI Respiratory: Respiratory: Reports as per HPI COUNT INCLUDES THE [facility] Past Medical History Medical History NSTEMI (non-ST elevated myocardial infarction) Coronary artery disease Stent to the distal circumflex and Left anterior descending in 2014. Left anterior descending stent in 04/2015. COVID Transient ischemic attack Diabetic peripheral neuropathy Peripheral vascular disease Deep venous thrombosis Gastric ulcer Obstructive sleep apnea on CPAP Hyperlipidemia Hypertension Type 2 diabetes mellitus Gastroesophageal reflux disease Chronic obstructive pulmonary disease Cerebrovascular accident Mild left-sided weakness. Congestive heart failure BMI greater than 40 Chronic anticoagulation Hydronephrosis Angina at rest Psoriasis Depression Fracture of fifth toe, right, closed Kidney stones Pneumonia Myocardial infarction Seasonal allergies Surgical History Surgical History History of tonsillectomy History of cholecystectomy History of lithotripsy History of heart artery stent X2. History of rectal polypectomy History of cardiac catheterization 2 stents Family History Family History Mother Diabetes mellitus Arthritis Kidney stones Coronary artery disease Father Acute myocardial infarction Heart disease Kidney stones Hypertension Coronary artery disease Sibling Coronary artery disease Heart disease Hx of CABG Social History Social History Social History: Surrogate decision maker: Rena Dodd, friend. Code status: Full code. Smoking packs per day: 1 Smoking cigarettes per day: 20.0 Years smoked: 45 Smoking pack-years: 45.00 Smoking status: Former smoker Tobacco type: cigarettes Second hand tobacco smoke exposure: Yes Smoking end date: 02/17/24 Alcohol intake: current Drinks per week: 0 Substance use: former Substance use type: marijuana Last use: 10/01/2023 Do You Feel Safe in your Home?: Yes Lack of Transportation: No Lack of Food: Never True Current Housing: I Have Housing Concerned About Future Housing: No Difficulty Paying Gas/Electric Bills: No Difficulty Paying for Meds: No Currently Unemployed: No Education: High School Diploma/GED Difficulty w/ Childcare or Family Care: No Living arrangements: with roommate(s) Additional living arrangements comments: The patient lives in [place] with a roommate. He has no children. Occupation/Education: other Additional occupation/education comments: Disabled. Spiritual care concerns: No Meds Home Medications and Allergies Home Medications ?Medication ?Instructions ?Recorded ?Confirmed ?Type amlodipine 10 mg tablet 10 mg PO DAILY 01/24/19 05/02/24 History bupropion HCl 150 mg tablet,12 hr 150 mg PO BID 01/24/19 05/02/24 History sustained-release (Wellbutrin SR) doxazosin 2 mg tablet (Cardura) 2 mg PO HS 01/24/19 05/02/24 History dulaglutide 1.5 mg/0.5 mL 1.5 mg subcut WEEKLY 01/24/19 05/02/24 History subcutaneous pen injector (Trulicity) metformin 1,000 mg tablet 1,000 mg PO BID 01/24/19 05/02/24 History rivaroxaban 2.5 mg tablet (Xarelto) 2.5 mg PO BID 01/24/19 05/02/24 History omeprazole 40 mg capsule,delayed 40 mg PO DAILY 04/13/19 05/02/24 History release atorvastatin 40 mg tablet 80 mg PO DAILY 05/16/19 05/02/24 History albuterol sulfate 90 mcg/actuation 2 puff inhalation Q4-6H PRN 01/09/20 05/02/24 History aerosol inhaler (Ventolin HFA) Shortness Of Breath isosorbide mononitrate 60 mg 120 mg PO DAILY 01/09/20 05/02/24 History tablet,extended release 24 hr loratadine 10 mg tablet (Claritin) 10 mg PO DAILY PRN allergy symptoms 03/15/20 05/02/24 History alprazolam 0.25 mg tablet 0.25 mg PO HS 08/21/21 05/02/24 History aspirin 81 mg chewable tablet 81 mg PO DAILY 09/29/21 05/02/24 History (Children's Aspirin) tamsulosin 0.4 mg capsule 0.4 mg PO HS 12/25/23 05/02/24 History albuterol sulfate 90 mcg/actuation 2 puff inhalation Q4-6H PRN 02/25/24 05/02/24 Rx aerosol inhaler shortness of breath or wheezing 30 days #8.5 grams empagliflozin 10 mg tablet 10 mg PO DAILY 02/25/24 05/02/24 History (Jardiance) losartan 100 mg tablet 100 mg PO DAILY 05/02/24 05/02/24 History Allergies Allergy/AdvReac Type Severity Reaction Status Date / Time No Known Allergies Allergy Unknown Verified 05/01/24 18:11 Vital Signs Vital Signs - 24 hr 05/01/24 18:09 05/01/24 18:38 05/01/24 20:15 Temperature 36.4 C L Pulse Rate 89 83 Respiratory Rate 20 18 Blood Pressure 114/65 121/75 Pulse Oximetry 98 97 96 Oxygen Delivery Room Air Room Air 05/01/24 23:46 05/02/24 05:08 05/02/24 08:04 Temperature 36.6 C Pulse Rate 81 84 81 Respiratory Rate 21 H 16 18 Blood Pressure 110/64 111/54 L 135/80 Pulse Oximetry 95 96 98 Oxygen Delivery 05/02/24 11:44 05/02/24 12:00 Temperature 36.4 C Pulse Rate 79 78 Respiratory Rate 18 Blood Pressure 109/62 Pulse Oximetry 95 Oxygen Delivery Exam Const: General: comfortable Neck: Neck: no JVD Resp: Effort & Inspection: normal respiratory effort Auscultation: rales Cardio: Rate: regular rate Rhythm: regular rhythm Extrem: General: pedal edema Results Labs and Meds 05/02/24 05:05 05/02/24 05:05 Lab results: Cardiac Enzymes 05/01/24 05/01/24 05/02/24 Range/Units 18:10 20:54 00:05 AST 28 (17-59) U/L Troponin I < 0.012 < 0.012 < 0.012 (0.000-0.034) ng/mL Coagulation 05/01/24 Range/Units 18:10 PT 15.0 H (11.1-14.7) Seconds APTT 31.8 (22.3-36.8) Seconds CBC 05/01/24 05/02/24 Range/Units 18:10 05:05 WBC 6.9 7.0 (4.5-10.0) K/mm3 RBC 4.47 L 4.22 L (4.6-6.20) M/mm3 Hgb 13.7 L 13.1 L (14.0-18.0) g/dL Hct 40.3 L 38.1 L (42.0-52.0) % Plt Count 123 L 107 L (150-375) k/mm3 Lymph # (Auto) 1.22 1.41 (0.9-3.2) K/mm3 [place] # (Auto) 0.7 H 0.8 H (0.1-0.6) K/mm3 Eos # (Auto) 0.1 0.2 (0-0.3) K/mm3 Baso # (Auto) 0.0 0.0 (0.0-0.1) K/mm3 Comprehensive Metabolic Panel 05/01/24 05/02/24 Range/Units 18:10 05:05 Sodium 138 137 (137-145) mmol/L Potassium 4.2 4.3 (3.4-5.0) mmol/L Chloride 103 104 (98-107) mmol/L Carbon Dioxide 25 22 (22-30) mmol/L BUN 17 21 H (9-20) mg/dL Creatinine 1.28 1.17 (0.7-1.3) mg/dL Glucose 144 H 143 H (65-110) mg/dL Calcium 8.9 8.8 (8.4-10.2) mg/dL AST 28 (17-59) U/L ALT 46 (6-50) U/L Alkaline Phosphatase 66 (38-126) U/L Total Protein 7.0 (6.3-8.2) g/dL Albumin 4.3 (3.5-5.1) g/dL Patient Weight 05/02/24 23:59 Weight 140 kg
--- NOTE | 2024-05-02 14:23 | P.PNIM_ITS ---
Progress Note: A&P Assessment and Plan (1) Chest pain: Code(s): R07.9 - Chest pain, unspecified Status: Acute (2) Type 2 diabetes mellitus: Qualifiers: Diabetes mellitus chcf insulin use: with long wall shear operator use Diabetes mellitus complication status: with neurologic complications Diabetes mellitus complication detail: with unspecified neuropathy Qualified Code(s): E11.40 - Type 2 diabetes mellitus with diabetic neuropathy, unspecified; Z79.4 - custodial (current) use of insulin Code(s): E11.9 - Type 2 diabetes mellitus without complications Status: Acute (3) HTN (hypertension): Qualifiers: Hypertension type: primary hypertension Qualified Code(s): I10 - Essential (primary) hypertension Code(s): I10 - Essential (primary) hypertension Status: Chronic (4) Obstructive sleep apnea on CPAP: Code(s): G47.33 - Obstructive sleep apnea (adult) (pediatric); Z99.89 - Dependence on other enabling machines and devices Status: Acute Plan today patient stats his CP has resolved, patient with significant history of CAD s/p PCI, now with elevated tropes, seen by kettle cook patient will need [facility] to further evaluate however patient took his Xarelto yesterday therefore patient cannot have cath today, it is plan for tomorrow, will monitor and follow up further recommended. Subjective Date/time seen: 05/02/24 14:23 Interval history: Chief Complaint: Chest Pain H&P-Narrative: 64 y/o M presents here with chest pain with PMH of NSTEMI, CAD, TIA, peripheral vascular disease, DVT, TAMIR on CPAP, HLD, HTN, dm, CVA, COPD, CHF, psoriasis, and SD. The patient presents here from home for further evaluation of chest pain. He reports onset approximately 15 minutes prior to arrival to the emergency department. He describes the chest pain as left-sided, pressure, achy, radiating into his left arm and neck, intermittent, duration varies 5-20 mins, no aggravating factors, and alleviated briefly by nitro. The patient took sublingual nitro x1 with some improvement in the pain, however pain continues to return. He reports the chest pain is accompanied by nausea, diaphoresis, shortness of breath, dizziness, and fatigue. The patient self reports a positive stress test at the end of last month through [facility]. He has a outpatient cardiac catheterization scheduled on 05/05 with [facility]. He has a history of coronary artery disease and cardiac stent placement x2. Possible rib fracture on the right seen on XR. Patient denies any right sided chest wall pain or trauma to this area. Initial VS at presentation: 97.5? F, HR 89, R 20, 114/65, and 98% on RA. ED workup showed: No leukocytosis, hemoglobin 13.7, INR 1.1, no significant electrolyte derangements, creatinine 1.28 and GFR 56 (previously 1.11 and GFR >60 on 04/14/2024), initial troponin negative. CXR showed possible fracture of the right 6 rib (correlate clinically) and no acute cardiopulmonary pathology. Initial EKG showed sinus rhythm and right bundle branch block (awaiting formal read). today patient stats his CP has resolved, patient with significant history of CAD s/p PCI, now with elevated tropes, seen by kettle cook patient will need [facility] to further evaluate however patient took his Xarelto yesterday therefore patient cannot have cath today, it is plan for tomorrow, will monitor and follow up further recommended. Exam Narrative: morbidly obese Patient is comfortable, NAD HEENT: eyes are clear and none icteric LUNGS:CTA HEART: RR S1S2 ABD: BS+, Soft and nontender Lower extremities: no edema SKIN: nonjaundiced Neuro: grossly intact. Objective Data Vital Signs Vital Signs: Vital Signs - 24 hr 05/01/24 18:09 05/01/24 18:38 05/01/24 20:15 Temperature 36.4 C L Pulse Rate 89 83 Respiratory Rate 20 18 Blood Pressure 114/65 121/75 Pulse Oximetry 98 97 96 Oxygen Delivery Room Air Room Air 05/01/24 23:46 05/02/24 05:08 05/02/24 08:04 Temperature 36.6 C Pulse Rate 81 84 81 Respiratory Rate 21 H 16 18 Blood Pressure 110/64 111/54 L 135/80 Pulse Oximetry 95 96 98 Oxygen Delivery 05/02/24 11:44 05/02/24 12:00 Temperature 36.4 C Pulse Rate 79 78 Respiratory Rate 18 Blood Pressure 109/62 Pulse Oximetry 95 Oxygen Delivery Meds/Results Medications: Active Medications Generic Name Dose Route Start Last Admin Trade Name Freq PRN Reason Stop Dose Admin Acetaminophen 650 mg 05/01/24 21:37 05/02/24 11:44 Acetaminophen 325 Mg Tablet PO 650 mg Q4H PRN Administration Mild Pain (1-3) or Fever Alprazolam 0.25 mg 05/02/24 21:00 Alprazolam (*Crx) 0.25 Mg Tablet PO HS BUZZ Amlodipine Besylate 10 mg 05/02/24 09:00 05/02/24 08:56 Amlodipine Besylate 10 Mg Tablet PO 10 mg DAILY BUZZ Administration Aspirin 81 mg 05/02/24 08:00 05/02/24 08:56 Aspirin 81 Mg Chewable Tablet PO 81 mg DAILY@0800 BUZZ Administration Atorvastatin Calcium 80 mg 05/02/24 21:00 Atorvastatin 40 Mg Tablet PO HS BUZZ Bupropion HCl 150 mg 05/02/24 09:00 05/02/24 08:56 Bupropion Hcl Sr (12 Hr) 150 Mg Tab PO 150 mg Q12HR BUZZ Administration Carvedilol 12.5 mg 05/02/24 09:00 05/02/24 11:44 Carvedilol 12.5 Mg Tablet PO 12.5 mg Q12HR BUZZ Administration Dextrose 12.5 gm 05/01/24 20:58 Dextrose 50% 25 Gm/50 Ml Syringe IV PUSH PRN PRN Hypoglycemia Protocol Empagliflozin 10 mg 05/02/24 09:00 05/02/24 08:56 Empagliflozin 10 Mg Tablet PO 10 mg DAILY BUZZ Administration Furosemide 40 mg 05/03/24 09:00 Furosemide Inj 40 Mg/4 Ml Vial IV PUSH 05/04/24 10:00 DAILY [facility] Glucagon 1 mg 05/01/24 20:58 Glucagon For Inj 1 Mg Vial IM PRN PRN Hypoglycemia Protocol Glucose 15 gm 05/01/24 20:58 Glucose Oral Gel 15 Gm Of Glucse In 37.5 Gm Tube PO PRN PRN Hypoglycemia Protocol Dextrose 1,000 mls @ 100 mls/hr 05/01/24 20:58 Dextrose 5% 1,000 Ml IVPB PRN PRN Hypoglycemia Protocol Insulin Aspart 4 - 8 units 05/02/24 08:00 05/02/24 13:05 Insulin Aspart (*Bkc) 100 Units/Ml SUB-Q Not Given TIDWM BUZZ Protocol Isosorbide Mononitrate 120 mg 05/02/24 09:00 05/02/24 08:56 Isosorbide Mononitrate 60 Mg Tab.Er.24h PO 120 mg DAILY BUZZ Administration Loratadine 10 mg 05/02/24 06:57 Loratadine 10 Mg Tablet PO DAILY PRN allergy symptoms Losartan Potassium 100 mg 05/02/24 09:00 05/02/24 08:56 Losartan Potassium 100 Mg Tablet PO 100 mg DAILY BUZZ Administration Morphine Sulfate 2 mg 05/01/24 21:37 Morphine Sulfate (*Crx) 2 Mg/Ml Inj IV PUSH Q2H PRN Pain Rated 7-10 Nitroglycerin 0.4 mg 05/01/24 20:58 Nitroglycerin Sl 0.4 Mg Tablet SUBLINGUAL Q5MIN PRN Chest Pain Pantoprazole Sodium 40 mg 05/02/24 09:00 05/02/24 08:57 Pantoprazole 40 Mg Tablet PO 40 mg Q12HR [facility] Administration Rivaroxaban 2.5 mg 05/02/24 09:00 Rivaroxaban 2.5 Mg Tablet PO BID BUZZ Tamsulosin HCl 0.4 mg 05/02/24 21:00 Tamsulosin Hcl 0.4 Mg Capsule PO HS [facility] Radiology Results: ITS Impressions Chest X-Ray 05/01/24 19:45 IMPRESSION: Possible fracture in the right sixth rib. Clinical correlation advised. Otherwise, No acute cardiopulmonary pathology Labs Labs: Laboratory Results - last 24 hr 05/01/24 05/01/24 05/01/24 18:10 20:54 21:05 WBC 6.9 RBC 4.47 L Hgb 13.7 L Hct 40.3 L MCV 90.2 MCH 30.6 MCHC 34.0 RDW 13.9 Plt Count 123 L MPV 10.8 H Immature Gran % (Auto) 0.3 Neut % (Auto) 69.9 Lymph % (Auto) 17.7 L [place] % (Auto) 10.1 H Eos % (Auto) 1.7 Baso % (Auto) 0.3 Lymph # (Auto) 1.22 [place] # (Auto) 0.7 H Eos # (Auto) 0.1 Baso # (Auto) 0.0 Abs Immat Gran (auto) 0.02 Absolute Neuts (auto) 4.8 Absolute Nucleated RBC 0.000 Nucleated RBC % 0.0 % Immature Plt Fraction 6.1 PT 15.0 H INR 1.1 APTT 31.8 Sodium 138 Potassium 4.2 Chloride 103 Carbon Dioxide 25 Anion Gap 10 BUN 17 Creatinine 1.28 Estim Creat Clear Calc 74 Estimated GFR 56 L Glucose 144 H POC Capillary Glucose 137 H Hemoglobin A1c Calcium 8.9 Total Bilirubin 0.9 AST 28 ALT 46 Alkaline Phosphatase 66 Troponin I < 0.012 < 0.012 Total Protein 7.0 Albumin 4.3 Lipase 118 05/02/24 05/02/24 05/02/24 00:05 05:05 09:05 WBC 7.0 RBC 4.22 L Hgb 13.1 L Hct 38.1 L MCV 90.3 MCH 31.0 MCHC 34.4 RDW 14.1 Plt Count 107 L MPV 11.1 H Immature Gran % (Auto) 0.1 Neut % (Auto) 65.6 Lymph % (Auto) 20.3 [place] % (Auto) 11.4 H Eos % (Auto) 2.3 Baso % (Auto) 0.3 Lymph # (Auto) 1.41 [place] # (Auto) 0.8 H Eos # (Auto) 0.2 Baso # (Auto) 0.0 Abs Immat Gran (auto) 0.01 Absolute Neuts (auto) 4.6 Absolute Nucleated RBC 0.000 Nucleated RBC % 0.0 % Immature Plt Fraction 5.9 PT INR APTT Sodium 137 Potassium 4.3 Chloride 104 Carbon Dioxide 22 Anion Gap 11 BUN 21 H Creatinine 1.17 Estim Creat Clear Calc 80 Estimated GFR > 60 Glucose 143 H POC Capillary Glucose 165 H Hemoglobin A1c 6.8 H Calcium 8.8 Total Bilirubin AST ALT Alkaline Phosphatase Troponin I < 0.012 Total Protein Albumin Lipase 05/02/24 11:35 WBC RBC Hgb Hct MCV MCH MCHC RDW Plt Count MPV Immature Gran % (Auto) Neut % (Auto) Lymph % (Auto) [place] % (Auto) Eos % (Auto) Baso % (Auto) Lymph # (Auto) [place] # (Auto) Eos # (Auto) Baso # (Auto) Abs Immat Gran (auto) Absolute Neuts (auto) Absolute Nucleated RBC Nucleated RBC % % Immature Plt Fraction PT INR APTT Sodium Potassium Chloride Carbon Dioxide Anion Gap BUN Creatinine Estim Creat Clear Calc Estimated GFR Glucose POC Capillary Glucose 135 H Hemoglobin A1c Calcium Total Bilirubin AST ALT Alkaline Phosphatase Troponin I Total Protein Albumin Lipase
[2024-05-02 15:48] LABS: Cholesterol 96 mg/dL (0-200); HDL Direct 23 mg/dL; Triglycerides 237 mg/dL (<150)
[2024-05-02 16:00] LABS: LDL Cholesterol Direct 35 mg/dL
[2024-05-02 16:39] LABS: Glucose Point of Care 170 mg/dl (65-105)
[2024-05-02] MEDS: ONDANSETRON INJ 4 MG/2 ML VIAL IV PUSH (17:08)
[2024-05-02] MEDS: WATER FOR IRRIGATION, STERILE 1,000 ML BOTTLE 1000 ML (17:21)
[2024-05-02 20:23] LABS: Glucose Point of Care 130 mg/dl (65-105)
[2024-05-02] MEDS: ALPRAZolam (*CRX) 0.25 MG TABLET PO (20:37)
[2024-05-02] MEDS: ATORVASTATIN 40 MG TABLET 80 MG PO (20:37)
[2024-05-02] MEDS: TAMSULOSIN HCL 0.4 MG CAPSULE PO (20:38)
[2024-05-03] VITALS (30 sets, daily range): BP systolic 100–133; BP diastolic 54–83; PULSE 69–86; RESP 14–27; TEMP 36.4–37; O2SAT 91–97
[2024-05-03 05:04] LABS: Hematocrit 40.2 % (42.0-52.0); Hemoglobin 13.6 g/dL (14.0-18.0); Immature Platelet Fraction Pct 6.4 % (0.9-11.2); Mean Corpuscular HGB Conc 33.8 g/dl (32-36); Mean Corpuscular Volume 88.5 fl (80-100); Mean Platelet Volume 11.3 fl (7.4-10.4); Platelet Count Result 122 k/mm3 (150-375); Red Blood Count 4.54 M/mm3 (4.6-6.20); Red Cell Distribution Width 13.5 % (11.5-14.5); White Blood Count 7.2 K/mm3 (4.5-10.0)
[2024-05-03 05:15] LABS: Anion Gap 10 mmol/L (4-12); Blood Urea Nitrogen 19 mg/dL (9-20); Calcium 9.1 mg/dL (8.4-10.2); Carbon Dioxide 22 mmol/L (22-30); Chloride 102 mmol/L (98-107); Estimated CRCL calculation 84 ml/min; Estimated Glomerular Filt Rate > 60; Glucose 149 mg/dL (65-110); Magnesium 1.8 mg/dL (1.6-2.3); Potassium 4.1 mmol/L (3.4-5.0); Sodium 134 mmol/L (137-145)
[2024-05-03 07:55] LABS: Glucose Point of Care 158 mg/dl (65-105)
[2024-05-03] MEDS: buPROPion HCL SR (12 HR) 150 MG TAB PO ×2 (09:23→21:00)
[2024-05-03] MEDS: carvediloL 12.5 MG TABLET PO ×2 (09:23→21:00)
[2024-05-03] MEDS: EMPAGLIFLOZIN 10 MG TABLET PO (09:23)
[2024-05-03] MEDS: ASPIRIN 81 MG CHEWABLE TABLET PO (09:23)
[2024-05-03] MEDS: FUROSEMIDE INJ 40 MG/4 ML VIAL IV PUSH (09:23)
[2024-05-03] MEDS: amLODIPine BESYLATE 10 MG TABLET PO (09:24)
[2024-05-03] MEDS: PANTOPRAZOLE 40 MG TABLET PO ×2 (09:24→21:00)
[2024-05-03] MEDS: LOSARTAN POTASSIUM 100 MG TABLET PO (09:24)
[2024-05-03] MEDS: ISOSORBIDE MONONITRATE 60 MG TAB.ER.24H 120 MG PO (09:24)
--- NOTE | 2024-05-03 10:52 | WPDHPUPDATE1 ---
History and Physical Update Update Date/Time: 05/03/24 10:52 History and Physical has been reviewed, including an updated exam of the patient. There are NO changes in the patient's condition. Risks, benefits, and alternatives have been discussed and questions answered. Patient agrees to proceed with procedure.
[2024-05-03] MEDS: ONDANSETRON INJ 4 MG/2 ML VIAL IV PUSH ×2 (11:23→15:22)
[2024-05-03 11:49] LABS: Glucose Point of Care 145 mg/dl (65-105)
--- NOTE | 2024-05-03 12:22 | PC.NURSE ---
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
--- NOTE | 2024-05-03 13:15 | P.SEDATION_ITS ---
Moderate Sedation Note-Pt Data Patient Data Diagnosis: Coronary artery disease Present Complaint: Coronary artery disease Procedure to be performed/Plan: Coronary angiography, left heart cath, +/- PCI Allergies Allergy/AdvReac Type Severity Reaction Status Date / Time No Known Allergies Allergy Unknown Verified 05/01/24 18:11 Home Medications ?Medication ?Instructions ?Recorded ?Confirmed ?Type amlodipine 10 mg tablet 10 mg PO DAILY 01/24/19 05/02/24 History bupropion HCl 150 mg tablet,12 hr 150 mg PO BID 01/24/19 05/02/24 History sustained-release (Wellbutrin SR) doxazosin 2 mg tablet (Cardura) 2 mg PO HS 01/24/19 05/02/24 History dulaglutide 1.5 mg/0.5 mL 1.5 mg subcut WEEKLY 01/24/19 05/02/24 History subcutaneous pen injector (Trulicity) metformin 1,000 mg tablet 1,000 mg PO BID 01/24/19 05/02/24 History rivaroxaban 2.5 mg tablet (Xarelto) 2.5 mg PO BID 01/24/19 05/02/24 History omeprazole 40 mg capsule,delayed 40 mg PO DAILY 04/13/19 05/02/24 History release atorvastatin 40 mg tablet 80 mg PO DAILY 05/16/19 05/02/24 History albuterol sulfate 90 mcg/actuation 2 puff inhalation Q4-6H PRN 01/09/20 05/02/24 History aerosol inhaler (Ventolin HFA) Shortness Of Breath isosorbide mononitrate 60 mg 120 mg PO DAILY 01/09/20 05/02/24 History tablet,extended release 24 hr loratadine 10 mg tablet (Claritin) 10 mg PO DAILY PRN allergy symptoms 03/15/20 05/02/24 History alprazolam 0.25 mg tablet 0.25 mg PO HS 08/21/21 05/02/24 History aspirin 81 mg chewable tablet 81 mg PO DAILY 09/29/21 05/02/24 History (Children's Aspirin) tamsulosin 0.4 mg capsule 0.4 mg PO HS 12/25/23 05/02/24 History albuterol sulfate 90 mcg/actuation 2 puff inhalation Q4-6H PRN 02/25/24 05/02/24 Rx aerosol inhaler shortness of breath or wheezing 30 days #8.5 grams empagliflozin 10 mg tablet 10 mg PO DAILY 02/25/24 05/02/24 History (Jardiance) losartan 100 mg tablet 100 mg PO DAILY 05/02/24 05/02/24 History Current Medications: Active Medications Acetaminophen (Acetaminophen 325 Mg Tablet) 650 mg PO Q4H PRN PRN Reason: Mild Pain (1-3) or Fever Last Admin: 05/02/24 11:44 Dose: 650 mg Alprazolam (Alprazolam (*Crx) 0.25 Mg Tablet) 0.25 mg PO [facility] Last Admin: 05/02/24 20:37 Dose: 0.25 mg Amlodipine Besylate (Amlodipine Besylate 10 Mg Tablet) 10 mg PO DAILY [facility] Last Admin: 05/03/24 09:24 Dose: 10 mg Aspirin (Aspirin 81 Mg Chewable Tablet) 81 mg PO DAILY@0800 [facility] Last Admin: 05/03/24 09:23 Dose: 81 mg Atorvastatin Calcium (Atorvastatin 40 Mg Tablet) 80 mg PO [facility] Last Admin: 05/02/24 20:37 Dose: 80 mg Bupropion HCl (Bupropion Hcl Sr (12 Hr) 150 Mg Tab) 150 mg PO Q12HR [facility] Last Admin: 05/03/24 09:23 Dose: 150 mg Carvedilol (Carvedilol 12.5 Mg Tablet) 12.5 mg PO Q12HR [facility] Last Admin: 05/03/24 09:23 Dose: 12.5 mg Dextrose (Dextrose 50% 25 Gm/50 Ml Syringe) 12.5 gm IV PUSH PRN PRN; Protocol PRN Reason: Hypoglycemia Empagliflozin (Empagliflozin 10 Mg Tablet) 10 mg PO DAILY [facility] Last Admin: 05/03/24 09:23 Dose: 10 mg Furosemide (Furosemide 40 Mg Tablet) 40 mg PO DAILY [facility] Glucagon (Glucagon For Inj 1 Mg Vial) 1 mg IM PRN PRN; Protocol PRN Reason: Hypoglycemia Glucose (Glucose Oral Gel 15 Gm Of Glucse In 37.5 Gm Tube) 15 gm PO PRN PRN; Protocol PRN Reason: Hypoglycemia Dextrose (Dextrose 5% 1,000 Ml) 1,000 mls @ 100 mls/hr IVPB PRN PRN; Protocol PRN Reason: Hypoglycemia Insulin Aspart (Insulin Aspart (*Bkc) 100 Units/Ml) 4 - 8 units SUB-Q TIDWM BUZZ; Protocol Last Admin: 05/03/24 12:18 Dose: Not Given Isosorbide Mononitrate (Isosorbide Mononitrate 60 Mg Tab.Er.24h) 120 mg PO DAILY [facility] Last Admin: 05/03/24 09:24 Dose: 120 mg Loratadine (Loratadine 10 Mg Tablet) 10 mg PO DAILY PRN PRN Reason: allergy symptoms Losartan Potassium (Losartan Potassium 100 Mg Tablet) 100 mg PO DAILY [facility] Last Admin: 05/03/24 09:24 Dose: 100 mg Morphine Sulfate (Morphine Sulfate (*Crx) 2 Mg/Ml Inj) 2 mg IV PUSH Q2H PRN PRN Reason: Pain Rated 7-10 Nitroglycerin (Nitroglycerin Sl 0.4 Mg Tablet) 0.4 mg SUBLINGUAL Q5MIN PRN PRN Reason: Chest Pain Ondansetron HCl (Ondansetron Inj 4 Mg/2 Ml Vial) 4 mg IV PUSH Q6H PRN PRN Reason: Nausea And Vomiting Last Admin: 05/03/24 11:23 Dose: 4 mg Pantoprazole Sodium (Pantoprazole 40 Mg Tablet) 40 mg PO Q12HR [facility] Last Admin: 05/03/24 09:24 Dose: 40 mg Rivaroxaban (Rivaroxaban 2.5 Mg Tablet) 2.5 mg PO BID [facility] Tamsulosin HCl (Tamsulosin Hcl 0.4 Mg Capsule) 0.4 mg PO HS [facility] Last Admin: 05/02/24 20:38 Dose: 0.4 mg Sedation/Anesthesia: No previous sedation/anesthesia problems (including family history). [facility] Past Medical History Medical History NSTEMI (non-ST elevated myocardial infarction) Coronary artery disease Stent to the distal circumflex and Left anterior descending in 2014. Left anterior descending stent in 04/2015. COVID Transient ischemic attack Diabetic peripheral neuropathy Peripheral vascular disease Deep venous thrombosis Gastric ulcer Obstructive sleep apnea on CPAP Hyperlipidemia Hypertension Type 2 diabetes mellitus Gastroesophageal reflux disease Chronic obstructive pulmonary disease Cerebrovascular accident Mild left-sided weakness. Congestive heart failure BMI greater than 40 Chronic anticoagulation Hydronephrosis Angina at rest Psoriasis Depression Fracture of fifth toe, right, closed Kidney stones Pneumonia Myocardial infarction Seasonal allergies Surgical History Surgical History History of tonsillectomy History of cholecystectomy History of lithotripsy History of heart artery stent X2. History of rectal polypectomy History of cardiac catheterization 2 stents Family History Family History Mother Diabetes mellitus Arthritis Kidney stones Coronary artery disease Father Acute myocardial infarction Heart disease Kidney stones Hypertension Coronary artery disease Sibling Coronary artery disease Heart disease Hx of CABG Social History Social History Social History: Surrogate decision maker: Rena Dodd, friend. Code status: Full code. Smoking packs per day: 1 Smoking cigarettes per day: 20.0 Years smoked: 45 Smoking pack-years: 45.00 Smoking status: Former smoker Tobacco type: cigarettes Second hand tobacco smoke exposure: Yes Smoking end date: 02/17/24 Alcohol intake: current Drinks per week: 0 Substance use: former Substance use type: marijuana Last use: 10/01/2023 Do You Feel Safe in your Home?: Yes Lack of Transportation: No Lack of Food: Never True Current Housing: I Have Housing Concerned About Future Housing: No Difficulty Paying Gas/Electric Bills: No Difficulty Paying for Meds: No Currently Unemployed: No Education: High School Diploma/GED Difficulty w/ Childcare or Family Care: No Living arrangements: with roommate(s) Additional living arrangements comments: The patient lives in [place] with a roommate. He has no children. Occupation/Education: other Additional occupation/education comments: Disabled. Spiritual care concerns: No Mod Sed Physical Exam Physical Exam Pre Procedural Exam: Normal: Lungs, Heart Rate, Heart Rhythm, Extremities and Skin and Variation: Appearance (Obese ) and Abdomen (Central obesity ) Hours since solid foods: 12 Hours since liquid intake: 8 Mallampati Classification: class III Internal Medicine - PN: Obj Da Vital Signs Vital Signs: Vital Signs - 24 hr 05/02/24 14:00 05/02/24 16:00 05/02/24 16:00 Temperature 36.8 C Pulse Rate 86 78 78 Respiratory Rate 18 Blood Pressure 113/60 Pulse Oximetry 98 Oxygen Delivery 05/02/24 18:00 05/02/24 20:00 05/02/24 20:00 Temperature Pulse Rate 69 71 74 Respiratory Rate 17 Blood Pressure Pulse Oximetry 97 Oxygen Delivery Room Air 05/02/24 20:15 05/02/24 20:38 05/02/24 22:00 Temperature 36.4 C L Pulse Rate 71 74 67 Respiratory Rate 17 Blood Pressure 138/83 Pulse Oximetry 97 Oxygen Delivery 05/02/24 22:30 05/02/24 23:30 05/03/24 00:00 Temperature 36.3 C L Pulse Rate 69 69 Respiratory Rate 18 18 Blood Pressure 117/47 L Pulse Oximetry 94 94 Oxygen Delivery CPAP Room Air 05/03/24 00:00 05/03/24 02:00 05/03/24 04:00 Temperature Pulse Rate 70 70 79 Respiratory Rate 18 Blood Pressure Pulse Oximetry 97 Oxygen Delivery Room Air 05/03/24 04:00 05/03/24 04:07 05/03/24 08:00 Temperature 36.4 C Pulse Rate 78 79 77 Respiratory Rate 18 Blood Pressure 108/57 L Pulse Oximetry 97 Oxygen Delivery 05/03/24 08:00 05/03/24 08:06 05/03/24 10:00 Temperature 36.4 C L Pulse Rate 76 82 Respiratory Rate 22 H Blood Pressure 133/77 Pulse Oximetry 97 95 Oxygen Delivery Room Air 05/03/24 11:54 05/03/24 12:00 Temperature 36.5 C Pulse Rate 83 80 Respiratory Rate 22 H Blood Pressure 112/63 Pulse Oximetry 97 Oxygen Delivery Intake/Output Intake/Output: Intake & Output 04/30/24 05/01/24 05/02/24 05/03/24 23:59 23:59 23:59 23:59 Intake Total 240 640 Balance 240 640 Meds/Results Medications: Active Medications Generic Name Dose Route Start Last Admin Trade Name Daniel PRN Reason Stop Dose Admin Acetaminophen 650 mg 05/01/24 21:37 05/02/24 11:44 Acetaminophen 325 Mg Tablet PO 650 mg Q4H PRN Administration Mild Pain (1-3) or Fever Alprazolam 0.25 mg 05/02/24 21:00 05/02/24 20:37 Alprazolam (*Crx) 0.25 Mg Tablet PO 0.25 mg HS BUZZ Administration Amlodipine Besylate 10 mg 05/02/24 09:00 05/03/24 09:24 Amlodipine Besylate 10 Mg Tablet PO 10 mg DAILY BUZZ Administration Aspirin 81 mg 05/02/24 08:00 05/03/24 09:23 Aspirin 81 Mg Chewable Tablet PO 81 mg DAILY@0800 BUZZ Administration Atorvastatin Calcium 80 mg 05/02/24 21:00 05/02/24 20:37 Atorvastatin 40 Mg Tablet PO 80 mg HS BUZZ Administration Bupropion HCl 150 mg 05/02/24 09:00 05/03/24 09:23 Bupropion Hcl Sr (12 Hr) 150 Mg Tab PO 150 mg Q12HR BUZZ Administration Carvedilol 12.5 mg 05/02/24 09:00 05/03/24 09:23 Carvedilol 12.5 Mg Tablet PO 12.5 mg Q12HR BUZZ Administration Dextrose 12.5 gm 05/01/24 20:58 Dextrose 50% 25 Gm/50 Ml Syringe IV PUSH PRN PRN Hypoglycemia Protocol Empagliflozin 10 mg 05/02/24 09:00 05/03/24 09:23 Empagliflozin 10 Mg Tablet PO 10 mg DAILY BUZZ Administration Furosemide 40 mg 05/04/24 09:00 Furosemide 40 Mg Tablet PO DAILY [facility] Glucagon 1 mg 05/01/24 20:58 Glucagon For Inj 1 Mg Vial IM PRN PRN Hypoglycemia Protocol Glucose 15 gm 05/01/24 20:58 Glucose Oral Gel 15 Gm Of Glucse In 37.5 Gm Tube PO PRN PRN Hypoglycemia Protocol Dextrose 1,000 mls @ 100 mls/hr 05/01/24 20:58 Dextrose 5% 1,000 Ml IVPB PRN PRN Hypoglycemia Protocol Insulin Aspart 4 - 8 units 05/02/24 08:00 05/03/24 12:18 Insulin Aspart (*Bkc) 100 Units/Ml SUB-Q Not Given TIDWM [facility] Protocol Isosorbide Mononitrate 120 mg 05/02/24 09:00 05/03/24 09:24 Isosorbide Mononitrate 60 Mg Tab.Er.24h PO 120 mg DAILY BUZZ Administration Loratadine 10 mg 05/02/24 06:57 Loratadine 10 Mg Tablet PO DAILY PRN allergy symptoms Losartan Potassium 100 mg 05/02/24 09:00 05/03/24 09:24 Losartan Potassium 100 Mg Tablet PO 100 mg DAILY BUZZ Administration Morphine Sulfate 2 mg 05/01/24 21:37 Morphine Sulfate (*Crx) 2 Mg/Ml Inj IV PUSH Q2H PRN Pain Rated 7-10 Nitroglycerin 0.4 mg 05/01/24 20:58 Nitroglycerin Sl 0.4 Mg Tablet SUBLINGUAL Q5MIN PRN Chest Pain Ondansetron HCl 4 mg 05/03/24 11:12 05/03/24 11:23 Ondansetron Inj 4 Mg/2 Ml Vial IV PUSH 4 mg Q6H PRN Administration Nausea And Vomiting Pantoprazole Sodium 40 mg 05/02/24 09:00 05/03/24 09:24 Pantoprazole 40 Mg Tablet PO 40 mg Q12HR BUZZ Administration Rivaroxaban 2.5 mg 05/02/24 09:00 Rivaroxaban 2.5 Mg Tablet PO BID BUZZ Tamsulosin HCl 0.4 mg 05/02/24 21:00 05/02/24 20:38 Tamsulosin Hcl 0.4 Mg Capsule PO 0.4 mg HS BUZZ Administration Radiology Results: ITS Impressions Chest X-Ray 05/01/24 19:45 IMPRESSION: Possible fracture in the right sixth rib. Clinical correlation advised. Otherwise, No acute cardiopulmonary pathology Labs 05/03/24 04:11 05/03/24 04:11 Labs: Laboratory Results - last 24 hr 05/02/24 05/02/24 05/02/24 05:05 16:24 20:19 WBC RBC Hgb Hct MCV MCH MCHC RDW Plt Count MPV % Immature Plt Fraction Sodium Potassium Chloride Carbon Dioxide Anion Gap BUN Creatinine Estim Creat Clear Calc Estimated GFR Glucose POC Capillary Glucose 170 H 130 H Calcium Magnesium Triglycerides 237 H Cholesterol 96 LDL Cholesterol Direct 35 HDL Direct 23 05/03/24 05/03/24 05/03/24 04:11 07:36 11:44 WBC 7.2 RBC 4.54 L Hgb 13.6 L Hct 40.2 L MCV 88.5 MCH 30.0 MCHC 33.8 RDW 13.5 Plt Count 122 L MPV 11.3 H % Immature Plt Fraction 6.4 Sodium 134 L Potassium 4.1 Chloride 102 Carbon Dioxide 22 Anion Gap 10 BUN 19 Creatinine 1.10 Estim Creat Clear Calc 84 Estimated GFR > 60 Glucose 149 H POC Capillary Glucose 158 H 145 H Calcium 9.1 Magnesium 1.8 Triglycerides Cholesterol LDL Cholesterol Direct HDL Direct ASA Classification/Sedation ASA Classification/Sedation ASA Class: III Emergent: No Risks: Risks, benefits and alternatives explained and patient/family accepted plan for sedation. Patient re-evaluated immediately prior to sedation.
--- NOTE | 2024-05-03 13:17 | P.PCNCC_ITS ---
Cardiac Cath Procedure Note Date of procedure:: 05/03/24 Performing physician:: CATHETERIZATION LABORATORY REPORT Procedure Date: 05/03/2024 Coal Pipeline Operator: Julio Richardson M.D., [facility]? Referring Physician: Fernando Modi M.D. Anesthesia: Versed and Fentanyl were ordered and given in my presence at 12:37, procedure ended at 13:00. Supervision of nurse monitored moderate sedation with Versed and Fentanyl was provided for 23 minutes. Total of Versed 1mg and Fentanyl 50mcg were administered by the Recreation Coordinator RN Carlos Titus. Pre-op Diagnosis: Coronary artery disease Post-op Diagnosis: 1. Patent stent in the proximal LAD. There is moderate disease in the mid portion of the LAD. The distal LAD has 70-80% disease, however, vessel is small caliber in the distal LAD. The second diagonal branch is a small caliber vessel with 70% disease in the proximal portion. 2. Patent stent in the mid portion of LCX. There is a mild-moderate focal stenosis distal to the stent. 3. There is a moderate stenosis in the mid portion of the RPDA. 4. Left ventricular end-diastolic pressure of 17mmHg Recommend medical management for CAD. Procedure(s): 1. Moderate sedation 2. Ultrasound-guided access of the right radial artery 3. Coronary angiography 4. Left heart cath Access Site: Right radial artery Brief History and Clinical Indications: Patient is a 64 year old male who is referred for [facility] for chest pain. All risks, benefits and alternatives to left heart catheterization with or without percutaneous coronary intervention was discussed at length with the patient. Risk of complications including but not limited to bleeding, infection, arrhythmia, stroke, worsening kidney function, blood loss, groin hematoma, limb loss, emergency coronary artery bypass grafting, and even were discussed with the patient and all questions were answered. The patient understood and wished to proceed. Time out called, patient name, date of , medical record number, allergies, procedure performed, identify Coal Pipeline Operator, patient and staff member concurred with accurate data, procedure carried on. Findings: LEFT HEART CATHETERIZATION FINDINGS: 1. Left main: The left main coronary artery is widely patent without any significant obstructive disease. 2. Left anterior descending: Patent stent in the proximal LAD. There is moderate disease in the mid portion of the LAD. The distal LAD has 70-80% disease, however, vessel is small caliber in the distal LAD. The first diagonal branch has no obstructive disease. The second diagonal branch is a small caliber vessel with 70% disease in the proximal portion. 3. Left circumflex: The left circumflex artery has patent stent in the mid portion. There is a mild-moderate focal stenosis distal to the stent. Remainder of LCX has luminal irregularities. No significant obstructive angiographic disease. There is a very small caliber OM branch with non-obstructive disease. 4. Right coronary artery: The RCA is the dominant vessel. The RCA has mild diffuse disease. There is a moderate stenosis in the mid portion of the RPDA. 5. Left ventricle: A. End-diastolic pressure 17 mmHg. B. LV gram deferred. C. No significant gradient across aortic valve on catheter pullback. Description of Procedure: Informed consent signed and placed in the chart. Patient transferred to qc lab technician room. Prepped and draped in usual sterile fashion. 2% lidocaine injected subcutaneously in right wrist area. 22-gauge venipuncture catheter used to access the right radial artery under ultrasound guidance. 6-FR slender sheath placed in right radial artery. Nitroglycerine and Verapamil were given intraarterial through the sheath. Versacore wire advanced under fluoroscopy 5F Tig 4 diagnostic catheter engaged Left Main Coronary Artery. 5F FR 4 diagnostic catheter engaged Right Coronary Artery Multiple orthogonal angiogram obtained and reviewed 5F Pigtail diagnostic catheter crossed aortic valve to obtain LVEDP, LV angiogram deferred. Hemostasis was achieved by application of TR band. Disposition: Floor Plan: The patient will be monitored in the recovery area. Continue aggressive medical therapy and risk factor modification. ? Julio Richardson M.D. Interventional Cardiology
--- NOTE | 2024-05-03 13:40 | P.PNCA_ITS ---
Progress Note: A&P Assessment and Plan (1) Chest pain: Code(s): R07.9 - Chest pain, unspecified Status: Acute Plan 63-year-old man with CAD status post PCI to proximal LAD and left circumflex, chronic diastolic heart failure, CVA, hypertension, hyperlipidemia, diabetes type 2, and TAMIR on CPAP presents to the hospital with chest discomfort Chest discomfort Coronary artery disease status post PCI -Differential is broad including old rib fracture, PE, coronary artery disease, and heart failure -LHC today shows patent stent in the proximal LAD. There is moderate disease in the mid portion of the LAD. The distal LAD has 70-80% disease, however, vessel is small caliber in the distal LAD. The second diagonal branch is a small caliber vessel with 70% disease in the proximal portion. Patent stent in the mid portion of LCX. There is a mild-moderate focal stenosis distal to the stent. There is a moderate stenosis in the mid portion of the RPDA. Left ventricular end-diastolic pressure of 17mmHg. -He is on maximally tolerated antianginals including Amlodipine, Imdur, Carvedilol. Did not tolerate Ranolazine in the past. -LVEDP 17mmHg after getting IV Lasix. Symptoms possibly contributed by CHF. Will transition IV Lasix to PO Lasix. Check NT pro BNP. -Can resume Xarelto starting tomorrow evening. Chronic heart failure with preserved LVEF -Patient is obese, his symptoms does suggest a degree of volume overload -LVEDP 17mmHg after getting IV Lasix. Symptoms possibly contributed by CHF. Will transition IV Lasix to PO Lasix. Check NT pro BNP. -Continue Jardiance. Hyperlipidemia -Continue Atorvastatin 80 mg every evening Hypertension -Continue Amlodipine, Imdur, Losartan, Carvedilol, Lasix Subjective Date/time seen: 05/03/24 13:40 Interval history: Reason for visit: Chest pain HPI: 63-year-old man with CAD status post PCI to proximal LAD and left circumflex, chronic diastolic heart failure, CVA, hypertension, hyperlipidemia, diabetes type 2, and TAMIR on CPAP presents to the hospital with chest discomfort. He has been having worsening exertional chest discomfort for the past 2 months now. He had associated shortness of breath. Previously he was able to walk to the mailbox without any significant cardiopulmonary limitations however he now has significant shortness of breath upon ambulating to his mailbox. He also has worsening chest discomfort with deep breaths. He has been following up with me in the outpatient clinic where he started to report his cardiopulmonary symptoms in January for which a nuclear stress test was performed showing a small size [id number] intensity ischemic defect in RCA territory however patient did have diaphragm and gut attenuation artifact and was unable to prone for the study. Nevertheless given his symptoms, he was scheduled for a cardiac catheterization this week however given his persistent and worsening chest discomfort he proceeded to the emergency room. His chest discomfort does become or alleviated with nitroglycerin. Date of service 05/03: [facility] today. Review of Systems Review of Systems: All systems reviewed & are unremarkable except as noted in HPI and below (HPI) Exam Const: General: no acute distress HENMT: Mouth: Yes moist mucous membranes Eyes: General: appearance normal, both eyes and all related structures Sclera: sclerae normal Resp: Effort & Inspection: normal respiratory effort Cardio: Rate: regular rate Rhythm: regular rhythm Skin: General skin exam: normal color Neuro: Speech: normal speech Psych: Mental Status: mental status grossly normal Affect: normal affect Objective Data Vital Signs Vital Signs: Vital Signs - 24 hr 05/02/24 14:00 05/02/24 16:00 05/02/24 16:00 Temperature 36.8 C Pulse Rate 86 78 78 Respiratory Rate 18 Blood Pressure 113/60 Pulse Oximetry 98 Oxygen Delivery 05/02/24 18:00 05/02/24 20:00 05/02/24 20:00 Temperature Pulse Rate 69 71 74 Respiratory Rate 17 Blood Pressure Pulse Oximetry 97 Oxygen Delivery Room Air 05/02/24 20:15 05/02/24 20:38 05/02/24 22:00 Temperature 36.4 C L Pulse Rate 71 74 67 Respiratory Rate 17 Blood Pressure 138/83 Pulse Oximetry 97 Oxygen Delivery 05/02/24 22:30 05/02/24 23:30 05/03/24 00:00 Temperature 36.3 C L Pulse Rate 69 69 Respiratory Rate 18 18 Blood Pressure 117/47 L Pulse Oximetry 94 94 Oxygen Delivery CPAP Room Air 05/03/24 00:00 05/03/24 02:00 05/03/24 04:00 Temperature Pulse Rate 70 70 79 Respiratory Rate 18 Blood Pressure Pulse Oximetry 97 Oxygen Delivery Room Air 05/03/24 04:00 05/03/24 04:07 05/03/24 08:00 Temperature 36.4 C Pulse Rate 78 79 77 Respiratory Rate 18 Blood Pressure 108/57 L Pulse Oximetry 97 Oxygen Delivery 05/03/24 08:00 05/03/24 08:06 05/03/24 10:00 Temperature 36.4 C L Pulse Rate 76 82 Respiratory Rate 22 H Blood Pressure 133/77 Pulse Oximetry 97 95 Oxygen Delivery Room Air 05/03/24 11:54 05/03/24 12:00 05/03/24 12:00 Temperature 36.5 C Pulse Rate 83 80 Respiratory Rate 22 H Blood Pressure 112/63 Pulse Oximetry 97 97 Oxygen Delivery Room Air 05/03/24 13:30 Temperature Pulse Rate 79 Respiratory Rate 16 Blood Pressure 102/67 Pulse Oximetry 91 Oxygen Delivery Room Air Intake/Output Intake/Output: Intake & Output 04/30/24 05/01/24 05/02/24 05/03/24 23:59 23:59 23:59 23:59 Intake Total 240 640 Balance 240 640 Meds/Results Medications: Active Medications Generic Name Dose Route Start Last Admin Trade Name Freq PRN Reason Stop Dose Admin Acetaminophen 650 mg 05/01/24 21:37 05/02/24 11:44 Acetaminophen 325 Mg Tablet PO 650 mg Q4H PRN Administration Mild Pain (1-3) or Fever Alprazolam 0.25 mg 05/02/24 21:00 05/02/24 20:37 Alprazolam (*Crx) 0.25 Mg Tablet PO 0.25 mg HS BUZZ Administration Amlodipine Besylate 10 mg 05/02/24 09:00 05/03/24 09:24 Amlodipine Besylate 10 Mg Tablet PO 10 mg DAILY BUZZ Administration Aspirin 81 mg 05/02/24 08:00 05/03/24 09:23 Aspirin 81 Mg Chewable Tablet PO 81 mg DAILY@0800 BUZZ Administration Atorvastatin Calcium 80 mg 05/02/24 21:00 05/02/24 20:37 Atorvastatin 40 Mg Tablet PO 80 mg HS BUZZ Administration Bupropion HCl 150 mg 05/02/24 09:00 05/03/24 09:23 Bupropion Hcl Sr (12 Hr) 150 Mg Tab PO 150 mg Q12HR BUZZ Administration Carvedilol 12.5 mg 05/02/24 09:00 05/03/24 09:23 Carvedilol 12.5 Mg Tablet PO 12.5 mg Q12HR BUZZ Administration Dextrose 12.5 gm 05/01/24 20:58 Dextrose 50% 25 Gm/50 Ml Syringe IV PUSH PRN PRN Hypoglycemia Protocol Empagliflozin 10 mg 05/02/24 09:00 05/03/24 09:23 Empagliflozin 10 Mg Tablet PO 10 mg DAILY BUZZ Administration Furosemide 40 mg 05/04/24 09:00 Furosemide 40 Mg Tablet PO DAILY BUZZ Glucagon 1 mg 05/01/24 20:58 Glucagon For Inj 1 Mg Vial IM PRN PRN Hypoglycemia Protocol Glucose 15 gm 05/01/24 20:58 Glucose Oral Gel 15 Gm Of Glucse In 37.5 Gm Tube PO PRN PRN Hypoglycemia Protocol Dextrose 1,000 mls @ 100 mls/hr 05/01/24 20:58 Dextrose 5% 1,000 Ml IVPB PRN PRN Hypoglycemia Protocol Insulin Aspart 4 - 8 units 05/02/24 08:00 05/03/24 12:18 Insulin Aspart (*Bkc) 100 Units/Ml SUB-Q Not Given TIDWM [facility] Protocol Isosorbide Mononitrate 120 mg 05/02/24 09:00 05/03/24 09:24 Isosorbide Mononitrate 60 Mg Tab.Er.24h PO 120 mg DAILY BUZZ Administration Loratadine 10 mg 05/02/24 06:57 Loratadine 10 Mg Tablet PO DAILY PRN allergy symptoms Losartan Potassium 100 mg 05/02/24 09:00 05/03/24 09:24 Losartan Potassium 100 Mg Tablet PO 100 mg DAILY BUZZ Administration Morphine Sulfate 2 mg 05/01/24 21:37 Morphine Sulfate (*Crx) 2 Mg/Ml Inj IV PUSH Q2H PRN Pain Rated 7-10 Nitroglycerin 0.4 mg 05/01/24 20:58 Nitroglycerin Sl 0.4 Mg Tablet SUBLINGUAL Q5MIN PRN Chest Pain Ondansetron HCl 4 mg 05/03/24 11:12 05/03/24 11:23 Ondansetron Inj 4 Mg/2 Ml Vial IV PUSH 4 mg Q6H PRN Administration Nausea And Vomiting Pantoprazole Sodium 40 mg 05/02/24 09:00 05/03/24 09:24 Pantoprazole 40 Mg Tablet PO 40 mg Q12HR BUZZ Administration Rivaroxaban 2.5 mg 05/02/24 09:00 Rivaroxaban 2.5 Mg Tablet PO BID [facility] Tamsulosin HCl 0.4 mg 05/02/24 21:00 05/02/24 20:38 Tamsulosin Hcl 0.4 Mg Capsule PO 0.4 mg HS [facility] Administration Radiology Results: ITS Impressions Chest X-Ray 05/01/24 19:45 IMPRESSION: Possible fracture in the right sixth rib. Clinical correlation advised. Otherwise, No acute cardiopulmonary pathology Labs Labs: Laboratory Results - last 24 hr 05/02/24 05/02/24 05/02/24 05:05 16:24 20:19 WBC RBC Hgb Hct MCV MCH MCHC RDW Plt Count MPV % Immature Plt Fraction Sodium Potassium Chloride Carbon Dioxide Anion Gap BUN Creatinine Estim Creat Clear Calc Estimated GFR Glucose POC Capillary Glucose 170 H 130 H Calcium Magnesium Triglycerides 237 H Cholesterol 96 LDL Cholesterol Direct 35 HDL Direct 05/03/24 05/03/24 05/03/24 04:11 07:36 11:44 WBC 7.2 RBC 4.54 L Hgb 13.6 L Hct 40.2 L MCV 88.5 MCH 30.0 MCHC 33.8 RDW 13.5 Plt Count 122 L MPV 11.3 H % Immature Plt Fraction 6.4 Sodium 134 L Potassium 4.1 Chloride 102 Carbon Dioxide 22 Anion Gap 10 BUN 19 Creatinine 1.10 Estim Creat Clear Calc 84 Estimated GFR > 60 Glucose 149 H POC Capillary Glucose 158 H 145 H Calcium 9.1 Magnesium 1.8 Triglycerides Cholesterol LDL Cholesterol Direct HDL Direct
[2024-05-03 13:55] LABS: NT Pro B Type Natriuretic Pept < 20 pg/mL (19.9-100)
--- NOTE | 2024-05-03 16:40 | P.PNIM_ITS ---
Progress Note: A&P Assessment and Plan (1) Chest pain: Code(s): R07.9 - Chest pain, unspecified Status: Acute (2) Type 2 diabetes mellitus: Qualifiers: Diabetes mellitus residential insulin use: with intermediate teacher use Diabetes mellitus complication status: with neurologic complications Diabetes mellitus complication detail: with unspecified neuropathy Qualified Code(s): E11.40 - Type 2 diabetes mellitus with diabetic neuropathy, unspecified; Z79.4 - residential (current) use of insulin Code(s): E11.9 - Type 2 diabetes mellitus without complications Status: Acute (3) HTN (hypertension): Qualifiers: Hypertension type: primary hypertension Qualified Code(s): I10 - Essential (primary) hypertension Code(s): I10 - Essential (primary) hypertension Status: Chronic (4) Obstructive sleep apnea on CPAP: Code(s): G47.33 - Obstructive sleep apnea (adult) (pediatric); Z99.89 - Dependence on other enabling machines and devices Status: Acute Plan patient stats his CP has resolved, patient with significant history of CAD s/p PCI, now with elevated tropes, seen by capacity management specialist patient will need LHC to f urther evaluate however patient took his Xarelto yesterday therefore patient cannot have cath today, it is plan for tomorrow, will monitor and follow up further recommended. today patient had LHC which showed CAD in several coronary arteries however the caliber of the arteries were to narrow to place a stent and cardiology is recommending medical management, patient is clinicall stable and his CP has resolved. Subjective Date/time seen: 05/03/24 16:40 Interval history: Chief Complaint: Chest Pain H&P-Narrative: 64 y/o M presents here with chest pain with PMH of NSTEMI, CAD, TIA, peripheral vascular disease, DVT, TAMIR on CPAP, HLD, HTN, dm, CVA, COPD, CHF, psoriasis, and KS. The patient presents here from home for further evaluation of chest pain. He reports onset approximately 15 minutes prior to arrival to the emergency departm ent. He describes the chest pain as left-sided, pressure, achy, radiating into his left arm and neck, intermittent, duration varies 5-20 mins, no aggravating factors, and alleviated briefly by nitro. The patient took sublingual nitro x1 with some improvement in the pain, however pain continues to return. He reports the chest pain is accompanied by nausea, diaphoresis, shortness of breath, dizz iness, and fatigue. The patient self reports a positive stress test at the end of last month through [facility]. He has a outpatient cardiac catheterization scheduled on 05/05 with [facility]. He has a history of coronary artery disease and cardiac stent placement x2. Possible rib fracture on the right seen on XR. Patient denies any right sided chest wall pain or trauma to this area. Initial VS at presentation: 97.5? F, HR 89, R 20, 114/65, and 98% on RA. ED workup showed: No leukocytosis, hemoglobin 13.7, INR 1.1, no significant electrolyte derangements, creatinine 1.28 and GFR 56 (previously 1.11 and GFR >60 on 04/14/2024), initial troponin negative. CXR showed possible fracture of the right 6 rib (correlate clinically) and no acute cardiopulmonary pathology. Initial EKG showed sinus rhythm and right bundle branch block (awaiting formal read). patient stats his CP has resolved, patient with significant history of CAD s/p PCI, now with elevated tropes, seen by capacity management specialist patient will need LHC to further evaluate however patient took his Xarelto yesterday therefore patient cannot have cath today, it is plan for tomorrow, will monitor and follow up further recommended. today patient had LHC which showed CAD in several coronary arteries however the caliber of the arteries were to narrow to place a stent and cardiology is recommending medical management, patient is clinicall stable and his CP has resolved. Review of Systems Review of Systems: All systems reviewed & are unremarkable except as noted in HPI and below Exam Narrative: morbidly obese Patient is comfortable, NAD HEENT: eyes are clear and none icteric LUNGS:CTA HEART: RR S1S2 ABD: BS+, Soft and nontender Lower extremities: no edema SKIN: nonjaundiced Neuro: grossly intact. Objective Data Vital Signs Vital Signs: Vital Signs - 24 hr 05/02/24 18:00 05/02/24 20:00 05/02/24 20:00 Temperature Pulse Rate 69 71 74 Respiratory Rate 17 Blood Pressure Pulse Oximetry 97 Oxygen Delivery Room Air 05/02/24 20:15 05/02/24 20:38 05/02/24 22:00 Temperature 36.4 C L Pulse Rate 71 74 67 Respiratory Rate 17 Blood Pressure 138/83 Pulse Oximetry 97 Oxygen Delivery 05/02/24 22:30 05/02/24 23:30 05/03/24 00:00 Temperature 36.3 C L Pulse Rate 69 69 Respiratory Rate 18 18 Blood Pressure 117/47 L Pulse Oximetry 94 94 Oxygen Delivery CPAP Room Air 05/03/24 00:00 05/03/24 02:00 05/03/24 04:00 Temperature Pulse Rate 70 70 79 Respiratory Rate 18 Blood Pressure Pulse Oximetry 97 Oxygen Delivery Room Air 05/03/24 04:00 05/03/24 04:07 05/03/24 08:00 Temperature 36.4 C Pulse Rate 78 79 77 Respiratory Rate 18 Blood Pressure 108/57 L Pulse Oximetry 97 Oxygen Delivery 05/03/24 08:00 05/03/24 08:06 05/03/24 10:00 Temperature 36.4 C L Pulse Rate 76 82 Respiratory Rate 22 H Blood Pressure 133/77 Pulse Oximetry 97 95 Oxygen Delivery Room Air 05/03/24 11:54 05/03/24 12:00 05/03/24 12:00 Temperature 36.5 C Pulse Rate 83 80 Respiratory Rate 22 H Blood Pressure 112/63 Pulse Oximetry 97 97 Oxygen Delivery Room Air 05/03/24 13:30 05/03/24 13:45 05/03/24 14:00 Temperature Pulse Rate 79 72 74 Respiratory Rate 16 19 18 Blood Pressure 102/67 107/65 107/68 Pulse Oximetry 91 93 94 Oxygen Delivery Room Air Room Air Room Air 05/03/24 14:15 05/03/24 14:30 05/03/24 14:45 Temperature Pulse Rate 85 86 84 Respiratory Rate 22 H 18 20 Blood Pressure 126/66 118/69 120/83 Pulse Oximetry 95 94 95 Oxygen Delivery Room Air Room Air Room Air 05/03/24 15:00 05/03/24 15:15 05/03/24 15:30 Temperature Pulse Rate 84 75 73 Respiratory Rate 22 H 20 27 H Blood Pressure 103/68 114/74 115/73 Pulse Oximetry 96 92 94 Oxygen Delivery Room Air Room Air Room Air 05/03/24 15:45 05/03/24 16:00 Temperature Pulse Rate 72 73 Respiratory Rate 14 16 Blood Pressure 100/73 113/72 Pulse Oximetry 95 92 Oxygen Delivery Room Air Room Air Intake/Output Intake/Output: Intake & Output 04/30/24 05/01/24 05/02/24 05/03/24 23:59 23:59 23:59 23:59 Intake Total 240 640 Balance 240 640 Meds/Results Medications: Active Medications Generic Name Dose Route Start Last Admin Trade Name Freq PRN Reason Stop Dose Admin Acetaminophen 650 mg 05/01/24 21:37 05/02/24 11:44 Acetaminophen 325 Mg Tablet PO 650 mg Q4H PRN Administration Mild Pain (1-3) or Fever Alprazolam 0.25 mg 05/02/24 21:00 05/02/24 20:37 Alprazolam (*Crx) 0.25 Mg Tablet PO 0.25 mg HS BUZZ Administration Amlodipine Besylate 10 mg 05/02/24 09:00 05/03/24 09:24 Amlodipine Besylate 10 Mg Tablet PO 10 mg DAILY BUZZ Administration Aspirin 81 mg 05/02/24 08:00 05/03/24 09:23 Aspirin 81 Mg Chewable Tablet PO 81 mg DAILY@0800 BUZZ Administration Atorvastatin Calcium 80 mg 05/02/24 21:00 05/02/24 20:37 Atorvastatin 40 Mg Tablet PO 80 mg HS BUZZ Administration Bupropion HCl 150 mg 05/02/24 09:00 05/03/24 09:23 Bupropion Hcl Sr (12 Hr) 150 Mg Tab PO 150 mg Q12HR BUZZ Administration Carvedilol 12.5 mg 05/02/24 09:00 05/03/24 09:23 Carvedilol 12.5 Mg Tablet PO 12.5 mg Q12HR BUZZ Administration Dextrose 12.5 gm 05/01/24 20:58 Dextrose 50% 25 Gm/50 Ml Syringe IV PUSH PRN PRN Hypoglycemia Protocol Empagliflozin 10 mg 05/02/24 09:00 05/03/24 09:23 Empagliflozin 10 Mg Tablet PO 10 mg DAILY BUZZ Administration Furosemide 40 mg 05/04/24 09:00 Furosemide 40 Mg Tablet PO DAILY BUZZ Glucagon 1 mg 05/01/24 20:58 Glucagon For Inj 1 Mg Vial IM PRN PRN Hypoglycemia Protocol Glucose 15 gm 05/01/24 20:58 Glucose Oral Gel 15 Gm Of Glucse In 37.5 Gm Tube PO PRN PRN Hypoglycemia Protocol Dextrose 1,000 mls @ 100 mls/hr 05/01/24 20:58 Dextrose 5% 1,000 Ml IVPB PRN PRN Hypoglycemia Protocol Insulin Aspart 4 - 8 units 05/02/24 08:00 05/03/24 12:18 Insulin Aspart (*Bkc) 100 Units/Ml SUB-Q Not Given TIDWM [facility] Protocol Isosorbide Mononitrate 120 mg 05/02/24 09:00 05/03/24 09:24 Isosorbide Mononitrate 60 Mg Tab.Er.24h PO 120 mg DAILY BUZZ Administration Loratadine 10 mg 05/02/24 06:57 Loratadine 10 Mg Tablet PO DAILY PRN allergy symptoms Losartan Potassium 100 mg 05/02/24 09:00 05/03/24 09:24 Losartan Potassium 100 Mg Tablet PO 100 mg DAILY [facility] Administration Morphine Sulfate 2 mg 05/01/24 21:37 Morphine Sulfate (*Crx) 2 Mg/Ml Inj IV PUSH Q2H PRN Pain Rated 7-10 Nitroglycerin 0.4 mg 05/01/24 20:58 Nitroglycerin Sl 0.4 Mg Tablet SUBLINGUAL Q5MIN PRN Chest Pain Ondansetron HCl 4 mg 05/03/24 11:12 05/03/24 15:22 Ondansetron Inj 4 Mg/2 Ml Vial IV PUSH 4 mg Q6H PRN Administration Nausea And Vomiting Pantoprazole Sodium 40 mg 05/02/24 09:00 05/03/24 09:24 Pantoprazole 40 Mg Tablet PO 40 mg Q12HR BUZZ Administration Rivaroxaban 2.5 mg 05/02/24 09:00 Rivaroxaban 2.5 Mg Tablet PO BID [facility] Tamsulosin HCl 0.4 mg 05/02/24 21:00 05/02/24 20:38 Tamsulosin Hcl 0.4 Mg Capsule PO 0.4 mg HS BUZZ Administration Radiology Results: ITS Impressions Chest X-Ray 05/01/24 19:45 IMPRESSION: Possible fracture in the right sixth rib. Clinical correlation advised. Otherwise, No acute cardiopulmonary pathology Labs Labs: Laboratory Results - last 24 hr 05/02/24 05/03/24 05/03/24 20:19 04:07 04:11 WBC 7.2 RBC 4.54 L Hgb 13.6 L Hct 40.2 L MCV 88.5 MCH 30.0 MCHC 33.8 RDW 13.5 Plt Count 122 L MPV 11.3 H % Immature Plt Fraction 6.4 Sodium 134 L Potassium 4.1 Chloride 102 Carbon Dioxide 22 Anion Gap 10 BUN 19 Creatinine 1.10 Estim Creat Clear Calc 84 Estimated GFR > 60 Glucose 149 H POC Capillary Glucose 130 H Calcium 9.1 Magnesium 1.8 NT-Pro-B Natriuret Pep < 20 05/03/24 05/03/24 07:36 11:44 WBC RBC Hgb Hct MCV MCH MCHC RDW Plt Count MPV % Immature Plt Fraction Sodium Potassium Chloride Carbon Dioxide Anion Gap BUN Creatinine Estim Creat Clear Calc Estimated GFR Glucose POC Capillary Glucose 158 H 145 H Calcium Magnesium NT-Pro-B Natriuret Pep Quality VTE Prophylaxis VTE prophylaxis: pharmacologic ordered
[2024-05-03 16:48] LABS: Glucose Point of Care 225 mg/dl (65-105)
[2024-05-03] MEDS: INSULIN ASPART (*BKC) 100 UNITS/ML SUB-Q (17:36)
[2024-05-03 20:32] LABS: Glucose Point of Care 172 mg/dl (65-105)
[2024-05-03] MEDS: TAMSULOSIN HCL 0.4 MG CAPSULE PO (21:00)
[2024-05-03] MEDS: ALPRAZolam (*CRX) 0.25 MG TABLET PO (21:00)
[2024-05-03] MEDS: ATORVASTATIN 40 MG TABLET 80 MG PO (21:00)
[2024-05-04] VITALS (9 sets, daily range): BP systolic 120–132; BP diastolic 80–83; PULSE 74–97; RESP 20; TEMP 36.4–36.9; O2SAT 95–96
[2024-05-04 04:57] LABS: Hemoglobin 13.6 g/dL (14.0-18.0); Mean Corpuscular Hemoglobin 30.6 pg (26-34); Mean Corpuscular Volume 89.9 fl (80-100); Mean Platelet Volume 11.3 fl (7.4-10.4); Platelet Count Result 119 k/mm3 (150-375); Red Blood Count 4.45 M/mm3 (4.6-6.20); Red Cell Distribution Width 13.7 % (11.5-14.5); White Blood Count 6.5 K/mm3 (4.5-10.0)
[2024-05-04 05:08] LABS: Anion Gap 14 mmol/L (4-12); Blood Urea Nitrogen 22 mg/dL (9-20); Carbon Dioxide 20 mmol/L (22-30); Chloride 101 mmol/L (98-107); Estimated CRCL calculation 72 ml/min; Estimated Glomerular Filt Rate 56; Glucose 174 mg/dL (65-110); Magnesium 1.8 mg/dL (1.6-2.3); Potassium 3.9 mmol/L (3.4-5.0); Sodium 135 mmol/L (137-145)
[2024-05-04 07:47] LABS: Glucose Point of Care 161 mg/dl (65-105)
[2024-05-04] MEDS: ASPIRIN 81 MG CHEWABLE TABLET PO (08:42)
[2024-05-04] MEDS: amLODIPine BESYLATE 10 MG TABLET PO (08:42)
[2024-05-04] MEDS: FUROSEMIDE 40 MG TABLET PO (08:43)
[2024-05-04] MEDS: buPROPion HCL SR (12 HR) 150 MG TAB PO (08:43)
[2024-05-04] MEDS: EMPAGLIFLOZIN 10 MG TABLET PO (08:43)
[2024-05-04] MEDS: LOSARTAN POTASSIUM 100 MG TABLET PO (08:43)
[2024-05-04] MEDS: carvediloL 12.5 MG TABLET PO (08:43)
[2024-05-04] MEDS: PANTOPRAZOLE 40 MG TABLET PO (08:44)
[2024-05-04] MEDS: ISOSORBIDE MONONITRATE 60 MG TAB.ER.24H 120 MG PO (08:44)
--- NOTE | 2024-05-04 09:18 | PM.PNCARD ---
Progress Note: A&P Assessment and Plan (1) Chest pain: Code(s): R07.9 - Chest pain, unspecified Status: Acute Plan 63-year-old man with CAD status post PCI to proximal LAD and left circumflex, chronic diastolic heart failure, CVA, hypertension, hyperlipidemia, diabetes type 2, and TAMIR on CPAP presents to the hospital with chest discomfort Chest discomfort Coronary artery disease status post PCI -Differential is broad including old rib fracture, PE, coronary artery disease, and heart failure -LHC shows patent stent in the proximal LAD. There is moderate disease in the mid portion of the LAD. The distal LAD has 70-80% disease, however, vessel is small caliber in the distal LAD. The second diagonal branch is a small caliber vessel with 70% disease in the proximal portion. Patent stent in the mid portion of LCX. There is a mild-moderate focal stenosis distal to the stent. There is a moderate stenosis in the mid portion of the RPDA. Left ventricular end-diastolic pressure of 17mmHg. Recommend medical management for CAD. -He is on maximally tolerated antianginals including Amlodipine, Imdur, Carvedilol. Did not tolerate Ranolazine in the past -- apparently it caused body odor. However, if he has recurrent angina, I would recommend a retrial of Ranolazine. -LVEDP 17mmHg after getting IV Lasix. Symptoms possibly contributed by CHF. Transitioned IV Lasix to PO Lasix. -Can resume Xarelto starting this evening. Chronic heart failure with preserved LVEF -Patient is obese, his symptoms does suggest a degree of volume overload -LVEDP 17mmHg after getting IV Lasix. Symptoms possibly contributed by CHF. Transitioned IV Lasix to PO Lasix. Continue PO Lasix at discharge. -Continue Jardiance. Hyperlipidemia -Continue Atorvastatin 80 mg every evening Hypertension -Continue Amlodipine, Imdur, Losartan, Carvedilol, Lasix Okay to discharge home from a cardiac standpoint. Will arrange outpatient follow up with Dr. Modi. Recommendations and plan discussed with Hospitalist. Subjective Date/time seen: 05/04/24 09:18 Interval history: Reason for visit: Chest pain HPI: 63-year-old man with CAD status post PCI to proximal LAD and left circumflex, chronic diastolic heart failure, CVA, hypertension, hyperlipidemia, diabetes type 2, and TAMIR on CPAP presents to the hospital with chest discomfort. He has been having worsening exertional chest discomfort for the past 2 months now. He had associated shortness of breath. Previously he was able to walk to the mailbox without any significant cardiopulmonary limitations however he now has significant shortness of breath upon ambulating to his mailbox. He also has worsening chest discomfort with deep breaths. He has been following up with me in the outpatient clinic where he started to report his cardiopulmonary symptoms in January for which a nuclear stress test was performed showing a small size [id number] intensity ischemic defect in RCA territory however patient did have diaphragm and gut attenuation artifact and was unable to prone for the study. Nevertheless given his symptoms, he was scheduled for a cardiac catheterization this week however given his persistent and worsening chest discomfort he proceeded to the emergency room. His chest discomfort does become or alleviated with nitroglycerin. Date of service 05/03: [facility] today. Date of service 05/04: Feeling well today. Review of Systems Cardiovascular: Cardiovascular: Reports as per HPI Exam Const: General: no acute distress HENMT: Mouth: Yes moist mucous membranes Eyes: General: appearance normal, both eyes and all related structures Sclera: sclerae normal Resp: Effort & Inspection: normal respiratory effort Cardio: Rate: regular rate Rhythm: regular rhythm Skin: General skin exam: normal color Neuro: Speech: normal speech Psych: Mental Status: mental status grossly normal Affect: normal affect Objective Data Vital Signs Vital Signs: Vital Signs - 24 hr 05/03/24 10:00 05/03/24 11:54 05/03/24 12:00 Temperature 36.5 C Pulse Rate 82 83 80 Respiratory Rate 22 H Blood Pressure 112/63 Pulse Oximetry 97 Oxygen Delivery 05/03/24 12:00 05/03/24 13:30 05/03/24 13:45 Temperature Pulse Rate 79 72 Respiratory Rate 16 19 Blood Pressure 102/67 107/65 Pulse Oximetry 97 91 93 Oxygen Delivery Room Air Room Air Room Air 05/03/24 14:00 05/03/24 14:00 05/03/24 14:15 Temperature Pulse Rate 74 85 85 Respiratory Rate 18 22 H Blood Pressure 107/68 126/66 Pulse Oximetry 94 95 Oxygen Delivery Room Air Room Air 05/03/24 14:30 05/03/24 14:45 05/03/24 15:00 Temperature Pulse Rate 86 84 84 Respiratory Rate 18 20 22 H Blood Pressure 118/69 120/83 103/68 Pulse Oximetry 94 95 96 Oxygen Delivery Room Air Room Air Room Air 05/03/24 15:15 05/03/24 15:30 05/03/24 15:45 Temperature Pulse Rate 75 73 72 Respiratory Rate 20 27 H 14 Blood Pressure 114/74 115/73 100/73 Pulse Oximetry 92 94 95 Oxygen Delivery Room Air Room Air Room Air 05/03/24 16:00 05/03/24 16:00 05/03/24 16:00 Temperature Pulse Rate 73 79 Respiratory Rate 16 Blood Pressure 113/72 Pulse Oximetry 92 96 Oxygen Delivery Room Air Room Air 05/03/24 16:30 05/03/24 17:32 05/03/24 18:00 Temperature 36.4 C L 36.7 C Pulse Rate 79 81 85 Respiratory Rate 20 22 H Blood Pressure 119/66 115/57 L Pulse Oximetry 95 96 Oxygen Delivery 05/03/24 18:00 05/03/24 19:54 05/03/24 20:00 Temperature 37.0 C Pulse Rate 82 83 82 Respiratory Rate 20 20 Blood Pressure 126/60 Pulse Oximetry 94 94 Oxygen Delivery Room Air 05/03/24 20:03 05/03/24 21:00 05/03/24 22:00 Temperature 37.0 C Pulse Rate 83 81 82 Respiratory Rate 20 Blood Pressure 109/74 Pulse Oximetry 94 Oxygen Delivery 05/03/24 23:05 05/03/24 23:08 05/03/24 23:42 Temperature 37.0 C Pulse Rate 80 73 Respiratory Rate 20 20 Blood Pressure 128/54 L Pulse Oximetry 96 96 Oxygen Delivery CPAP CPAP 05/04/24 00:00 05/04/24 02:00 05/04/24 04:00 Temperature Pulse Rate 77 76 76 Respiratory Rate 20 Blood Pressure Pulse Oximetry 96 Oxygen Delivery CPAP 05/04/24 04:00 05/04/24 04:37 05/04/24 06:00 Temperature 36.9 C Pulse Rate 75 97 77 Respiratory Rate 20 Blood Pressure 132/83 Pulse Oximetry 95 Oxygen Delivery 05/04/24 08:02 05/04/24 08:43 Temperature 36.4 C Pulse Rate 74 77 Respiratory Rate 20 Blood Pressure 120/80 Pulse Oximetry 95 Oxygen Delivery Intake/Output Intake/Output: Intake & Output 05/01/24 05/02/24 05/03/2425 23:59 23:59 23:59 23:59 Intake Total 240 1080 800 Balance 240 1080 800 Meds/Results Medications: Active Medications Generic Name Dose Route Start Last Admin Trade Name Daniel PRN Reason Stop Dose Admin Acetaminophen 650 mg 05/01/24 21:37 05/02/24 11:44 Acetaminophen 325 Mg Tablet PO 650 mg Q4H PRN Administration Mild Pain (1-3) or Fever Alprazolam 0.25 mg 05/02/24 21:00 05/03/24 21:00 Alprazolam (*Crx) 0.25 Mg Tablet PO 0.25 mg HS BUZZ Administration Amlodipine Besylate 10 mg 05/02/24 09:00 05/04/24 08:42 Amlodipine Besylate 10 Mg Tablet PO 10 mg DAILY BUZZ Administration Aspirin 81 mg 05/02/24 08:00 05/04/24 08:42 Aspirin 81 Mg Chewable Tablet PO 81 mg DAILY@0800 BUZZ Administration Atorvastatin Calcium 80 mg 05/02/24 21:00 05/03/24 21:00 Atorvastatin 40 Mg Tablet PO 80 mg HS BUZZ Administration Bupropion HCl 150 mg 05/02/24 09:00 05/04/24 08:43 Bupropion Hcl Sr (12 Hr) 150 Mg Tab PO 150 mg Q12HR BUZZ Administration Carvedilol 12.5 mg 05/02/24 09:00 05/04/24 08:43 Carvedilol 12.5 Mg Tablet PO 12.5 mg Q12HR BUZZ Administration Dextrose 12.5 gm 05/01/24 20:58 Dextrose 50% 25 Gm/50 Ml Syringe IV PUSH PRN PRN Hypoglycemia Protocol Empagliflozin 10 mg 05/02/24 09:00 05/04/24 08:43 Empagliflozin 10 Mg Tablet PO 10 mg DAILY BUZZ Administration Furosemide 40 mg 05/04/24 09:00 05/04/24 08:43 Furosemide 40 Mg Tablet PO 40 mg DAILY BUZZ Administration Glucagon 1 mg 05/01/24 20:58 Glucagon For Inj 1 Mg Vial IM PRN PRN Hypoglycemia Protocol Glucose 15 gm 05/01/24 20:58 Glucose Oral Gel 15 Gm Of Glucse In 37.5 Gm Tube PO PRN PRN Hypoglycemia Protocol Dextrose 1,000 mls @ 100 mls/hr 05/01/24 20:58 Dextrose 5% 1,000 Ml IVPB PRN PRN Hypoglycemia Protocol Insulin Aspart 4 - 8 units 05/02/24 08:00 05/04/24 08:37 Insulin Aspart (*Bkc) 100 Units/Ml SUB-Q Not Given TIDWM [facility] Protocol Isosorbide Mononitrate 120 mg 05/02/24 09:00 05/04/24 08:44 Isosorbide Mononitrate 60 Mg Tab.Er.24h PO 120 mg DAILY BUZZ Administration Loratadine 10 mg 05/02/24 06:57 Loratadine 10 Mg Tablet PO DAILY PRN allergy symptoms Losartan Potassium 100 mg 05/02/24 09:00 05/04/24 08:43 Losartan Potassium 100 Mg Tablet PO 100 mg DAILY [facility] Administration Morphine Sulfate 2 mg 05/01/24 21:37 Morphine Sulfate (*Crx) 2 Mg/Ml Inj IV PUSH Q2H PRN Pain Rated 7-10 Nitroglycerin 0.4 mg 05/01/24 20:58 Nitroglycerin Sl 0.4 Mg Tablet SUBLINGUAL Q5MIN PRN Chest Pain Ondansetron HCl 4 mg 05/03/24 11:12 05/03/24 15:22 Ondansetron Inj 4 Mg/2 Ml Vial IV PUSH 4 mg Q6H PRN Administration Nausea And Vomiting Pantoprazole Sodium 40 mg 05/02/24 09:00 05/04/24 08:44 Pantoprazole 40 Mg Tablet PO 40 mg Q12HR BUZZ Administration Rivaroxaban 2.5 mg 05/02/24 09:00 Rivaroxaban 2.5 Mg Tablet PO BID [facility] Tamsulosin HCl 0.4 mg 05/02/24 21:00 05/03/24 21:00 Tamsulosin Hcl 0.4 Mg Capsule PO 0.4 mg HS BUZZ Administration Radiology Results: ITS Impressions Chest X-Ray 05/01/24 19:45 IMPRESSION: Possible fracture in the right sixth rib. Clinical correlation advised. Otherwise, No acute cardiopulmonary pathology Labs Labs: Laboratory Results - last 24 hr 05/03/24 05/03/24 05/03/24 04:07 11:44 16:44 WBC RBC Hgb Hct MCV MCH MCHC RDW Plt Count MPV Sodium Potassium Chloride Carbon Dioxide Anion Gap BUN Creatinine Estim Creat Clear Calc Estimated GFR Glucose POC Capillary Glucose 145 H 225 H Calcium Magnesium NT-Pro-B Natriuret Pep < 20 05/03/24 05/04/24 05/04/24 20:05 04:07 07:39 WBC 6.5 RBC 4.45 L Hgb 13.6 L Hct 40.0 L MCV 89.9 MCH 30.6 MCHC 34.0 RDW 13.7 Plt Count 119 L MPV 11.3 H Sodium 135 L Potassium 3.9 Chloride 101 Carbon Dioxide 20 L Anion Gap 14 H BUN 22 H Creatinine 1.28 Estim Creat Clear Calc 72 Estimated GFR 56 L Glucose 174 H POC Capillary Glucose 172 H 161 H Calcium 9.0 Magnesium 1.8 NT-Pro-B Natriuret Pep
--- NOTE | 2024-05-04 10:20 | P.DS_ITS ---
DS: Admitting Diagnosis Discharge Date 05/04/24 Admitting Diagnosis Chest pain DS: Discharge Diagnosis Discharge Diagnosis (1) Chest pain: Code(s): R07.9 - Chest pain, unspecified Status: Acute (2) Type 2 diabetes mellitus: Qualifiers: Diabetes mellitus termite renewal inspector insulin use: with mcc use Diabetes mellitus complication status: with neurologic complications Diabetes mellitus complication detail: with unspecified neuropathy Qualified Code(s): E11.40 - Type 2 diabetes mellitus with diabetic neuropathy, unspecified; Z79.4 - technician terminal and repeater (current) use of insulin Code(s): E11.9 - Type 2 diabetes mellitus without complications Status: Acute (3) HTN (hypertension): Qualifiers: Hypertension type: primary hypertension Qualified Code(s): I10 - Essential (primary) hypertension Code(s): I10 - Essential (primary) hypertension Status: Chronic (4) Obstructive sleep apnea on CPAP: Code(s): G47.33 - Obstructive sleep apnea (adult) (pediatric); Z99.89 - Dependence on other enabling machines and devices Status: Acute DS: Summary Hospital Course Hospital Course: patient stats his CP has resolved, patient with significant history of CAD s/p PCI, now with elevated tropes, seen by blood donor recruiter patient will need LHC to further evaluate however patient took his Xarelto yesterday therefore patient cannot have cath today, it is plan for tomorrow, will monitor and follow up further recommended. on 05/04 patient had LHC which showed CAD in several coronary arteries however the caliber of the arteries were to narrow to place a stent and cardiology is recommending medical management, patient is clinically stable and his CP has resolved. will discharge today Time Spent with Patient Time attestation: Total time spent providing and/or coordinating discharge services: Exam Narrative: morbidly obese Patient is comfortable, NAD HEENT: eyes are clear and none icteric LUNGS:CTA HEART: RR S1S2 ABD: BS+, Soft and nontender Lower extremities: no edema SKIN: nonjaundiced Neuro: grossly intact. DS: Data Data Completed and Pending Labs on day of discharge: Labs from last 24 hours 05/04/24 05/04/24 05/03/24 07:39 04:07 20:05 WBC 6.5 RBC 4.45 L Hgb 13.6 L Hct 40.0 L MCV 89.9 MCH 30.6 MCHC 34.0 RDW 13.7 Plt Count 119 L MPV 11.3 H Sodium 135 L Potassium 3.9 Chloride 101 Carbon Dioxide 20 L Anion Gap 14 H BUN 22 H Creatinine 1.28 Estim Creat Clear Calc 72 Estimated GFR 56 L Glucose 174 H POC Capillary Glucose 161 H 172 H Calcium 9.0 Magnesium 1.8 NT-Pro-B Natriuret Pep 05/03/24 05/03/24 05/03/24 16:44 11:44 04:07 WBC RBC Hgb Hct MCV MCH MCHC RDW Plt Count MPV Sodium Potassium Chloride Carbon Dioxide Anion Gap BUN Creatinine Estim Creat Clear Calc Estimated GFR Glucose POC Capillary Glucose 225 H 145 H Calcium Magnesium NT-Pro-B Natriuret Pep < 20 Discharge Plan Discharge Attending physician on discharge: Lindsay Wright Consulting providers: Fernando Modi; Julio Richardson; Marlene Garcia; Eleno Dawson Discharging Clinician: Mansi Hodges Patient Disposition: Home, Self-Care Activity: as tolerated Diet: heart healthy Discharge Instructions: [facility] [address] [place] [address] DISCHARGE INSTRUCTIONS - POST RADIAL CATH Activity 1. No driving for 24 hours. 2. No lifting more than 5 lb with affected arm for 1 week. 3. May shower ( tomorrow) but no excessive soaking of affected hand/wrist (such as washing dishes), swimming pool or hot tub for 5 days. Wound Care 1. May remove arm board in the morning. 2. May remove gauze dressing in the morning and put Band-Aid over affected radial site. Keep site covered for 3 days. 3. Observe for redness, drainage, swelling or bleeding. Medications DO NOT STOP YOUR MEDICATIONS ONLY YOUR AUTOMOTIVE PROJECT ENGINEER CAN STOP THE FOLLOWING MEDICATIONS - PLEASE CALL THE OFFICE WITH QUESTIONS. *Aspirin *Ticagrelor (Brilinta) *Atorvastatin *Lisinopril or ARB *Metoprolol tartrate or succinate *Clopidogrel (Plavix) *Prasugrel (Effient) Important Reminders 1. Keep your stent card in your wallet at all times 2. Follow a heart healthy diet paying extra attention to cholesterol and fats. 3. Stay hydrated. 4. If you have chest pain unrelieved by rest or nitroglycerin (if prescribed) call 911 immediately. 5. If you miss one dose of Brilinta (if prescribed) take a tablet at the next time due. If you miss 2 doses take a tablet when you remember and resume at the next time due. *For any other questions please call the office at [phone]. Office hours are 8AM 4:30PM Thursday through Thursday. patient to follow discharge care instruction from his blood donor recruiter and follow up as scheduled, patient to start taking his Xarelto from this evening, patient to follow up with his primary care provider as soon as possible, patient is instructed if any symptoms worsen to go to nearest ER. Patient Instructions: Antibiotic Form, Rivaroxaban (By mouth), Heart Failure (GEN) Patient Language: Malay Stand Alone Forms: General Discharge Information Follow-up/Referrals: Husam Raymundo MD [Physician] - [place],JOVITA Junior [Primary Care Provider] - Discharge Medications: New furosemide 40 mg Tablet 40 mg PO DAILY Qty: 30 0RF carvedilol [Coreg] 12.5 mg Tablet 12.5 mg PO Q12HR Qty: 60 0RF nitroglycerin [Nitrostat] 0.4 mg Tablet, Sublingual 0.4 mg sublingual Q5MIN PRN (Reason: Chest Pain) Qty: 26 0RF aspirin [Children's Aspirin] 81 mg Tablet,Chewable 81 mg PO DAILY@0800 Qty: 30 0RF Continued albuterol sulfate 90 mcg/actuation HFA aerosol inhaler 2 puff inhalation Q4-6H PRN (Reason: shortness of breath or wheezing) 30 Days Qty: 8.5 0RF isosorbide mononitrate 60 mg tablet extended release 24 hr 120 mg PO DAILY albuterol sulfate [Ventolin HFA] 90 mcg/actuation HFA aerosol inhaler 2 puff INHALATION Q4-6H PRN (Reason: Shortness Of Breath) loratadine [Claritin] 10 mg Tablet 10 mg PO DAILY PRN (Reason: allergy symptoms) aspirin [Children's Aspirin] 81 mg tablet,chewable 81 mg PO DAILY losartan 100 mg tablet 100 mg PO DAILY omeprazole 40 mg capsule,delayed release(DR/EC) 40 mg PO DAILY Qty: 30 0RF tamsulosin 0.4 mg capsule 0.4 mg PO HS Qty: 30 0RF doxazosin [Cardura] 2 mg tablet 2 mg PO HS Qty: 30 0RF Jardiance 10 mg tablet 10 mg PO DAILY Qty: 30 0RF Trulicity 1.5 mg/0.5 mL pen injector 1.5 mg SUBCUT WEEKLY Qty: 10 0RF Rx Instructions: TAKES ON fridays Xarelto 2.5 mg tablet 2.5 mg PO BID Qty: 30 0RF bupropion HCl [Wellbutrin SR] 150 mg tablet sustained-release 12 hr 150 mg PO BID amlodipine 10 mg tablet 10 mg PO DAILY metformin 1,000 mg tablet 1,000 mg PO BID atorvastatin 40 mg tablet 80 mg PO DAILY alprazolam 0.25 mg tablet 0.25 mg PO HS Rx Instructions: at bedtime Date of admission: 05/02/24 14:43 Primary Care Provider: Angelina,Sandi Admitting Provider: Lindsay Wright Attending physician on admission: Mansi Hodges Condition: Stable
== END 2024-05-04 10:30 | disposition home or self-care (01) | DRG 287 ==
LOC: ANHED 21:37 → ANHIMU 22:04
PROVIDERS: Emergency Medicine; Internal Medicine; Student in an Organized Health Care Education/Training Program; Admitting Provider Internal Medicine; Emergency Provider Emergency Medicine; PCP Registered Nurse; Visit Provider Family Medicine
PROC: 4A023N7 Measurement of Cardiac Sampling and Pressure, Left Heart, Percutaneous Approach (ICD-10-PCS; CPT 93452; principal; 2024-05-03 11:30)
DX: R07.9 Chest pain, unspecified (principal); I69.354 Hemiplegia and hemiparesis following cerebral infarction affecting left non-dominant side; I50.32 Chronic diastolic (congestive) heart failure; I25.10 Atherosclerotic heart disease of native coronary artery without angina pectoris; I11.0 Hypertensive heart disease with heart failure; J44.9 Chronic obstructive pulmonary disease, unspecified; E11.42 Type 2 diabetes mellitus with diabetic polyneuropathy; E11.51 Type 2 diabetes mellitus with diabetic peripheral angiopathy without gangrene; E78.5 Hyperlipidemia, unspecified; K21.9 Gastro-esophageal reflux disease without esophagitis; G47.33 Obstructive sleep apnea (adult) (pediatric); F32.A Depression, unspecified; F17.210 Nicotine dependence, cigarettes, uncomplicated; I25.2 Old myocardial infarction; Z79.02 Long term (current) use of antithrombotics/antiplatelets; Z87.442 Personal history of urinary calculi; Z86.718 Personal history of other venous thrombosis and embolism; Z95.5 Presence of coronary angioplasty implant and graft; Z79.82 Long term (current) use of aspirin; Z87.11 Personal history of peptic ulcer disease
CPT/HCPCS: 36415; 71046; 80048; 80053; 80061; 82948; 83036; 83690; 83735; 83880; 84484; 85025; 85027; 85055; 85610; 85730; 93005; 93458; 96374; 96375; 96376; 99285; A9270; C1769; C1887; C1894; G0378; J1644; J1815; J1940; J2003; J2250; J2270; J2305; J2405; J3010; J7040

== ENCOUNTER 2024-06-13 12:26 | Inpatient (IN) | payer MEDICARE, MEDICAID, SELFPAY ==
[2024-06-13] VITALS (8 sets, daily range): BP systolic 109–139; BP diastolic 61–72; PULSE 80–90; RESP 16–20; TEMP 36.3–36.4; O2SAT 97–99; BMI 40.8
--- NOTE | ~2024-06-13 | XR_ITS ---
EXAMINATION: XR chest 2V DATE: 06/13/2024 13:20 INDICATION: Chest pain TECHNIQUE: PA and lateral views of the chest were obtained. COMPARISON: Chest radiograph dated 05/01/2024 FINDINGS: The lungs remain clear with no focal airspace opacities, pulmonary edema, pleural effusion or pneumot horax. Arch size is normal with left paracardial fat pad. Heart size is normal. 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 Mild thoracic spondylosis with bridging osteophytes at multiple levels consiste nt with diffuse idiopathic skeletal hyperostosis (DISH). IMPRESSION: 1. No acute cardiopulmonary disease. Reviewed, dictated and finalized at location A.
--- NOTE | ~2024-06-13 | CT_ITS ---
History: Left arm drift. Disorientation PROCEDURE: CT head without contrast. COMPARISON: 01/29/2024 and dating back to 01/24/2023 TECHNIQUE: Axial imaging of the head performed from the skull base to the vertex without IV contrast. Sagittal a nd coronal reformations obtained. DLP: 605 mGy-cm FINDINGS: The ventricles are enlarged. The dilatation of the ventricles is proportional to the degree of sulcal prominence, not uncommon in the senescent brain. Decreased attenuation is identified within the periventricular white matter, likely secondary to micr ovascular ischemic disease, in a patient of this age. Redemonstration of a focus of encephalomalacia within the right posterior parietal periventricular wh ite matter, unchanged from prior, representing prior cerebral infarction. There is no mass, mass effect or midline shift. There is no abnormal extra-axial fluid collection or intracranial hemorrhage. Visualized paranasal sinuses are clear. The mastoid air cells are well aerated. No acute displaced fractures within the overlying cranium. Impression: No acute intracranial hemorrhage or suspicious mass effect. Reviewed, dictated and finalized at location A. Impression: No acute intracranial hemorrhage or suspicious mass effect.
--- NOTE | ~2024-06-13 | XR_ITS ---
XR abdomen/kub 1V 06/14/2024 13:59 INDICATION: Abdomen pain TECHNIQUE: KUB COMPARISON: None FINDINGS: Bowel gas pattern is normal. Bowel content limits evaluation for renal stones. There are ch olecystectomy clips. There is no evidence of free air, mass, organomegaly, ascites or obstruction. N o abnormal calculi are seen. The bones appear intact. IMPRESSION: 1: No acute abdominal abnormality identified. Reviewed, dictated and finalized at location B.
--- NOTE | ~2024-06-13 | MR_ITS ---
EXAMINATION: MR brain IAC wo/w con DATE: 06/15/2024 10:17 INDICATION: Altered mental status. Left arm drift. TECHNIQUE: Magnetic resonance imaging (MRI) of the brain and brainstem was performed without and with 20 mL ProHance intravenous contrast. Sequences included sagittal and axial T1-weighted FSE, axial di ffusion-weighted FS EPI, axial T2*-weighted GRE, axial T2-weighted FLAIR Propeller, axial T2-weighted Propeller, small [id number] coronal FIESTA, small [id number] coronal T1-weighted FSE, and smal l [id number] axial T1-weighted SPGR. Postcontrast sequences included axial T1-weighted FSE, small [id number]-[id number] coronal T1-weighted FSE, and small [id number] axial T1-weighted SPGR. Apparent diffu atif coefficient (ADC) maps were created. COMPARISON: Head CT dated 06/14/2024 FINDINGS: Small old lacunar infarct in the right frontoparietal periventricular white matter. There are no area s of restricted diffusion to suggest acute infarction. No intracranial hemorrhage or abnormal intracr anial mass lesion. There are scattered areas of nonspecific increased T2-weighted signal intensity in the cerebral white matter, predominantly involving the deep and periventricular white matter. There are no intraparenchymal signal abnormalities seen on the other pulse sequences. The ventricles are sy mmetric and normal in size. There are no abnormal extra-axial fluid collections. Normal seventh/eight h cranial nerve complexes. No cerebellopontine angles masses. No evidence of mastoid or middle ear fluid. The semicircular canals and cochlea appear normal on both the left and right. Flow voids are s een in the cerebral arteries on the T2-weighted sequences consistent with their expected patency. Vis ualized orbits and soft tissues are unremarkable. There are no areas of abnormal enhancement on the p ost contrast images. IMPRESSION: 1. Small old lacunar infarct in the right frontoparietal periventricular white matter. No acute intra cranial process. 2. Additional scattered periventricular predominant nonspecific white matter T2 hyperintensity which within normal limits for age and consistent with chronic small vessel ischemic disease. Reviewed, dictated and finalized at location A. IMPRESSION: 1. Small old lacunar infarct in the right frontoparietal periventricular white matter. No acute intracranial process. 2. Additional scattered periventricular predominant nonspecific white matter T2 hyperintensity which within normal limits for age and consistent with chronic small vessel ischemic disease.
--- NOTE | 2024-06-13 12:29 | ECG_ITS ---
Test Date: 2024-06-13 12:47:50 Measurements Intervals [place]rell Rate: 87 P: 68 DE: 164 QRS: 40 QRSD: 153 T: 22 QT: 383 QTc: 462 Interpretive Statements SINUS RHYTHM RIGHT BUNDLE BRANCH BLOCK CONSIDER INFERIOR INFARCT, AGE INDETERMINATE BASELINE WANDER- V3 ABNORMAL ECG Compared to ECG 05/01/2024 18:05:05 No significant changes Electronically Signed On 06-13-2024 12:52:14 CDT by Mathew Landon D.O.
[2024-06-13 12:59] LABS: Basophils Percent Auto 0.5 % (0.2-1.2); Eosinophils Absolute Auto 0.1 K/mm3 (0-0.3); Eosinophils Percent Auto 1.8 % (0-4.4); Hematocrit 40.5 % (42.0-52.0); Hemoglobin 13.5 g/dL (14.0-18.0); Immature Granulocyte Absolute 0.02 K/mm3 (0.00-0.031); Immature Granulocyte Percent A 0.3 % (0-0.5); Immature Platelet Fraction Pct 6.8 % (0.9-11.2); Lymphocytes Absolute Auto 1.27 K/mm3 (0.9-3.2); Lymphocytes Percent Auto 19.5 % (18.3-44.2); Mean Corpuscular HGB Conc 33.3 g/dl (32-36); Mean Corpuscular Hemoglobin 30.5 pg (26-34); Mean Corpuscular Volume 91.6 fl (80-100); Mean Platelet Volume 11.5 fl (7.4-10.4); Monocytes Absolute Auto 0.6 K/mm3 (0.1-0.6); Monocytes Percent Auto 9.4 % (2.6-8.5); Neutrophils Absolute Auto 4.5 K/mm3 (1.3-6.7); Neutrophils Percent Auto 68.5 % (45.5-73.1); Platelet Count Result 133 k/mm3 (150-375); Red Blood Count 4.42 M/mm3 (4.6-6.20); Red Cell Distribution Width 13.5 % (11.5-14.5); White Blood Count 6.5 K/mm3 (4.5-10.0)
[2024-06-13] MEDS: ASPIRIN 81 MG CHEWABLE TABLET 324 MG PO (13:00)
[2024-06-13 13:10] LABS: Alanine Aminotransferase 44 U/L (6-50); Albumin Level 4.2 g/dL (3.5-5.1); Alkaline Phosphatase 63 U/L (38-126); Anion Gap 12 mmol/L (4-12); Aspartate Amino Transferase 29 U/L (17-59); Bilirubin,Total 0.6 mg/dL (0.2-1.3); Blood Urea Nitrogen 19 mg/dL (9-20); Calcium 9.1 mg/dL (8.4-10.2); Carbon Dioxide 22 mmol/L (22-30); Chloride 103 mmol/L (98-107); Estimated CRCL calculation 75 ml/min; Estimated Glomerular Filt Rate 57; Glucose 164 mg/dL (65-110); Lipase 155 U/L (23-300); Potassium 4.2 mmol/L (3.4-5.0); Sodium 137 mmol/L (137-145)
[2024-06-13 13:20] LABS: Troponin I < 0.012 ng/mL (0.000-0.034)
--- OUTSIDE RECORDS SUMMARY | 2024-06-13 13:36 | XMS_ITS | Clinical Summary ---
Author Organization [facility] [address] Address [address] [place] [address] Care Team Providers Care Bricklayer Tender Name Role Phone Sandi Alfaro Primary Care [...] 24 hr tabletIndication s:Coronary artery disease of [place] artery of [place] heart with stable angina pectoris TAKE 2 TABLETS BY MOUTH DAILY. 180 [...] CAPSULE BY MOUTH EVERYDAY AT BEDTIME Active Active Problems Problem Noted Date Diagnosed Date Hematuria, gross 11/13/2021 Chronic heart failure with preserved ejection fr action 11/12/2018 Cryptogenic stroke 07/06/2018 Status post placement of implantable loop record er 10/13/2017 Overview (10/13/2017): Better [employer] Reveal Loop Recorder. Dx; Cryptogenic Stroke. DOI 10/12/[address] Willoughby. [facility] remote monitoring. TIA (transient ischemic attack) 10/06/2017 S/P coronary artery stent placement 12/17/2016 Morbid obesity with BMI of 45.0-49.9, adult ([facility]) 08/13/2016 Mixed anxiety depressive disorder 05/01/2015 Overview (06/07/2016): Anxiety and depression Coronary artery disease of n ative artery of [place] heart with stable angina pectoris 02/20/2015 Overview (06/07/2016): Coronary artery disease involving [place] coronary artery of [place] heart with other form of angina pectoris CVA, old, hemiparesis 02/20/2015 Overview (06/07/2016): CVA, old, hemiparesis Mixed diabetic hyperlipidemi a associated with type 2 diabetes mellitus ([facility]) 02/20/2015 Overview (06/07/2016): DM type 2 with diabetic dyslipidemia Hypertensive heart disease with congestive heart failure 02/20/2015 Overview (06/07/2016): Hypertensive heart disease with diastolic heart failure TAMIR on CPAP 10/17/2014 Overview (06/07/2016): TAMIR on CPAP Diabetes mellitus 10/17/2014 Overview (06/07/2016): DM (diabetes mellitus) Hypertension associated with diabetes 10/17/2014 Overview (06/07/2016): HTN (hypertension), benign Encounters Date Type Department Care Team Description 05/16/2024 Orders Only [facility] Cardiology [address] [place] [phone] Julio Richardson MD 05/10/2024 Orders Only [facility] Medical [facility] Cardiology [address] [place] [address] Fernando Modi MD 04/22/2024 Results Follow-Up [facility] Medical [facility] Cardiology [address] [place] [address] Harini Mann RN Chest pain, unspecified type (Primary Dx); Cardiovascular stress test abnormal 04/21/2024 8:15 AM TRANSPORTATION PROGRAM DIRECTOR Ancillary Procedure [facility] Cardiology [address] [place] [address] [place] [phone] Coronary artery disease of [place] artery of [place] heart with stable angina pectoris 04/20/2024 11:15 AM TRANSPORTATION PROGRAM DIRECTOR Ancillary Procedure [facility] Cardiology [address] [place] [address] [place] [phone] Coronary artery disease of [place] artery of [place] heart with stable angina pectoris 04/11/2024 [address]phone [place] [address] [place] [phone] Fernando Modi MD NM stress test instructions 04/04/2024 1:00 PM TRANSPORTATION PROGRAM DIRECTOR Ancillary Procedure [place] [address] [place] [phone] Coronary artery disease of [place] artery of [place] heart with stable angina pectoris 03/29/2024 Telephone [place] [address] [place] [phone] Ifrah Gibson NP 03/28/2024 9:00 AM TRANSPORTATION PROGRAM DIRECTOR Office Visit [place] [address] [place] [phone] Ifrah Gibson NP Coronary artery disease of [place] artery of [place] heart with stable angina pectoris (Primary Dx); CVA, old, hemiparesis (HCC); Hypertension associated with diabetes (HCC); Recently quit using tobacco 03/24/2024 Telephone [place] [address] [place] [phone] Fernando Modi MD Chest Pain from Last [...] on file Legal Sex Male 3:15 AM TRANSPORTATION PROGRAM DIRECTOR Gender Identity Male 09/03/2018 6:22 AM CDT Sexual Orientation Straight 09/03/2018 6: 22 AM CDT Obstetrics History Last Filed Vital Signs Vital Sign Reading Time Taken Comments Blood Pressure 132/72 03/28/2024 9:10 AM TRANSPORTATION PROGRAM DIRECTOR Pulse 82 01/18/2024 8:53 AM TRANSPORTATION PROGRAM DIRECTOR Temperature - - Respiratory Rate - - Oxygen Saturation 96% 03/28/2024 9:10 AM TRANSPORTATION PROGRAM DIRECTOR Inhaled Oxygen Concentration - - Weight 137.4 kg (303 lb) 03/28/2024 9:10 AM TRANSPORTATION PROGRAM DIRECTOR Height 182.9 cm (6') 03/28/2024 9:10 AM TRANSPORTATION PROGRAM DIRECTOR Body Mass Index 41.09 03/28/2024 9:10 AM TRANSPORTATION PROGRAM DIRECTOR Plan of Treatment Health Maintenance Due Date Last Done Comments Albumin Creatinine Ratio, Urine 1960 Colon Cancer Screening-Colonoscopy 1959 Depression Screening 1959 Fall Risk Assessment 1960 Hepatitis C Screening 1960 Prostate Cancer Screening-PSA 1960 eGFR 1960 Dilated Eye Exam 1959 Foot Exam 1959 Hepatitis B Screening 1977 Pneumococcal vaccine 65+ (1 of 2 - PCV) 1978 Zoster Vaccine (1 of 2) 2009 Hemoglobin A1C 11/26/2018 05/26/2018 Covid-19 Vaccine (4 - 2023-2 5 season) 2023 12/31/2020, 05/11/2020, 04/13/2020 Abdominal Aortic Aneurysm (A AA) Screen 2024 04/28/2017 Well Visit 65+ 2024 Lipid Panel 10/19/2024 10/20/2023, 04/30, 07/01/2022, Additional history exists DTaP/Tdap/Td Vaccine (3 - Td or Tdap) 02/25/2026 02/26/2016, 11/22/2014 Influenza Vaccine Completed 12/16/2023, , 12/31/2021, Additional history exists Procedures Procedure Name Priority Date/Time Associated Diagnosis Comments CARDIOLOGY DOCUMENT SCAN Routine 05/04/2024 10:59 AM TRANSPORTATION PROGRAM DIRECTOR CARDIOLOGY DOCUMENT SCAN Routine 05/03/2024 10:55 AM TRANSPORTATION PROGRAM DIRECTOR CARDIOLOGY DOCUMENT SCAN Routine 05/03/2024 8:33 AM TRANSPORTATION PROGRAM DIRECTOR CARDIOLOGY DOCUMENT SCAN Routine 05/02/2024 10:52 AM TRANSPORTATION PROGRAM DIRECTOR CARDIOLOGY DOCUMENT SCAN Routine 05/02/2024 10:10 AM TRANSPORTATION PROGRAM DIRECTOR NM MPI SPECT (REST AND/OR STRESS) MULTIPLE STUDIES Schedule Routine, Read Routine (OP Routine) 04/20/2024 12:17 PM TRANSPORTATION PROGRAM DIRECTOR Coronary artery disease of [place] artery of [place] heart with stable angina pectoris TRANSTHORACIC ECHO (TTE) COMPLETE W DOPPLER/CF W CONTRAST Routine 04/04/2024 1:37 PM TRANSPORTATION PROGRAM DIRECTOR Coronary artery disease of [place] artery of [place] heart with stable angina pectoris LIPID PANEL Routine 10/20/2023 from Last 3 Months or Most Recently Relevant to Health Maintenance Results * Cardiology Document Scan (05/04/2024 10:59 AM TRANSPORTATION PROGRAM DIRECTOR) Anatomical Region Laterality Modality Other Julio Richardson MD CV CARDIAC SERVICES PRO CEDURES Final Result * Cardiology Document Scan (05/03/2024 10:55 AM TRANSPORTATION PROGRAM DIRECTOR) Anatomical Region Laterality Modality Other Julio Richardson MD CV CARDIAC SERVICES PRO CEDURES Final Result * Cardiology Document Scan (05/03/2024 8:33 AM TRANSPORTATION PROGRAM DIRECTOR) Anatomical Region Laterality Modality Other Julio Richardson MD CV CARDIAC SERVICES PRO CEDURES Final Result * Cardiology Document Scan (05/02/2024 10:52 AM TRANSPORTATION PROGRAM DIRECTOR) Anatomical Region Laterality Modality Other Fernando Modi MD CV CARDIAC SERVICES PROCEDURES F inal Result * Cardiology Document Scan (05/02/2024 10:10 AM TRANSPORTATION PROGRAM DIRECTOR) Anatomical Region Laterality Modality Other us Fernando Modi MD CV CARDIAC SERVICES PROCEDURES F inal Result * NM MPI SPECT (Rest and/or Stress) Multiple Studies (04/20/2024 12:17 PM TRANSPORTATION PROGRAM DIRECTOR) Anatomical Region Laterality Modality Body N/A Nuclear Medicine 04/20/2024 11:1 5 AM TRANSPORTATION PROGRAM DIRECTOR Narrative 04/21/2024 4:44 PM TRANSPORTATION PROGRAM DIRECTOR [facility] Cardiology [address], [place] [address] [address], [place] [address] P:[phone] P:[phone] MPI Imaging Report Patient Name: KLAUDIA HALEY B : 1960 Study Date: 04/20/2024 11:15:21 AM Gender: M Tech: [facility] Location: [facility] Provider: IFRAH GIBSON Height(Cm): 182.9 BSA: [...] Smoker, and I25.118 Atherosclerotic heart disease of [place] coronary artery with other forms of angina [...] By: Husam Raymundo MD 04/21/2024 4:43:33 PM TRANSPORTATION PROGRAM DIRECTOR Electronically Signed By: Husam Raymundo MD 04/21/2024 4:43:33 PM TRANSPORTATION PROGRAM DIRECTOR Procedure Note Husam Raymundo MD - 04/21/2024 [facility] Cardiology [address], [place] [address] [address], [place] [address] P:[phone] P:[phone] MPI Imaging Report Patient Name: KLAUDIA HALEY B : 1960 Study Date: 04/20/2024 11:15:21 AM Gender: M Tech: [facility] Location: [facility] Provider: IFRAH GIBSON Height(Cm): 182.9 BSA: [...] Smoker, and I25.118 Atherosclerotic heart disease of [place] coronary artery withother forms of angina pectoris. [...] By: Husam Raymundo MD 04/21/2024 4:43:33 PM TRANSPORTATION PROGRAM DIRECTOR Electronically Signed By: Husam Raymundo MD 04/21/2024 4:43:33 PM TRANSPORTATION PROGRAM DIRECTOR Ifrah Gibson EARTH MOVING MACHINE OPERATOR IMG NM PROCEDURES Final R esult * TRANSTHORACIC ECHO (TTE) COMPLETE W DOPPLER/CF W CONTRAST (04/04/2024 1:37 PM TRANSPORTATION PROGRAM DIRECTOR) LV EF 75 % CONS SCIMAGE Anatomical Region Laterality Modality Ultrasound 04/04/2024 12:5 7 PM TRANSPORTATION PROGRAM DIRECTOR Narrative 04/04/2024 3:50 PM TRANSPORTATION PROGRAM DIRECTOR [facility] Cardiology [address] [facility] [address] [id number] [address], [place] [address] P:[phone] P:[phone] Echocardiographic Report Patient Name: KLAUDIA HALEYTomas : 1960 Study Date: 04/04/2024 12:57:00 PM Gender: M Tech: Location: [place] Ref Provider: IFRAH GIBSON Height(Cm): 183 BSA: 2.64 Weight(Kg): 137.4 Heart Rate: 79 BP: 132 / 72 Quality: Definity contrast agent used to enhance endocardial border definition Order Provider: IFRAH GIBSON PROCEDURES: Echocardiographic Report: Transthoracic echocardiogram with complete 2D, M-Mode, color Doppler examination and Definity contrast. INDICATIONS: Coronary Artery Disease, Shortness of breath, and I25.118 Atherosclerotic heart disease of [place] coronary artery with other forms of angina [...] Exam was interpreted at [facility]. Left Ventricle: Normal left ventricular size. Definity [...] views. Electronically Signed By: Todd Kwan MD, [facility] 04/04/2024 3:49:55 PM TRANSPORTATION PROGRAM DIRECTOR Procedure Note Todd Kwan MD - 04/04/2024 [facility] Cardiology [address], [place] [address] [address], [address], [place] [address] P:[phone] P:[phone] Echocardiographic Report Patient Name: KLAUDIA HALEY B : 1960 Study Date: 04/04/2024 12:57:00 PM Gender: M Tech: Location: [facility] Provider: IFRAH GIBSON Height(Cm): 183 BSA: 2.64 Weight(Kg): 137.4 Heart Rate: 79 BP: 132 / 72 Quality: Definity contrast agent used to enhance endocardial borderdefinition Order Provider: IFRAH GIBSON PROCEDURES: Echocardiographic Report: Transthoracic echocardiogram with complete 2D, M-Mode, color Dopplerexamination and Definity contrast. INDICATIONS: Coronary Artery Disease, Shortness of breath, and I25.118 Atheroscleroticheart disease of [place] coronary artery with other forms of angina [...] Exam was interpreted at [facility]. Left Ventricle: Normal left ventricular size. Definity [...] views. Electronically Signed By: Todd Kwan MD, [facility] 04/04/2024 3:49:55 PM TRANSPORTATION PROGRAM DIRECTOR Ifrah Gibson NP CV ECHO PROCEDURES Final [...] Most Recently Relevant to Health Maintenance Insurance [facility] MEDICARE MEDICARE IDDE Care Teams Bricklayer Tender Relationship Specialty Start Date End Date Sandi Alfaro PA PCP - General Nurse Practitioner 08/21/17
--- OUTSIDE RECORDS SUMMARY | 2024-06-13 13:36 | XMS_ITS ---
Author Organization [facility] Address [address] [place], [place] [id number] Care Team Providers Care Water Resource Specialist Name Role Phone PIETER WALSH Unavailable [phone] Sandi Alfaro Unavailable Unavailable REASON FOR VISIT [...] 0.0005 MG/MG Topical Ointment [Temovate] *Reorder from [employer] for eRx and Interaction Alerts* 7 Active clotrimazole 10 MG/ML Topical Cream CUTANEOUS clotrimazole 10 MG/ML Topical CreamOriginal Medicationclotrimazole 10 MG/ML Topical Cream *Reorder from [employer] for eRx and Interaction Alerts* 7 Active betamethasone 0.5 MG/ML / clotrimazole 10 MG/ML Topical Cream [Lotrisone] CUTANEOUS betamethasone 0.5 MG/ML / clotrimazole 10 MG/ML Topical Cream [Lotrisone]Original Medicationbetamethasone 0.5 MG/ML / clotrimazole 10 MG/ML Topical Cream [Lotrisone] *Reorder from [employer] for eRx and Interacti 7 Active Augmented betamethasone 0.5 MG/ML Topical Cream CUTANEOUS Augmented betamethasone 0.5 MG/ML Topical CreamOriginal MedicationAugmented betamethasone 0.5 MG/ML Topical Cream *Reorder from [facility] for eRx and Interaction Alerts* 7 Active betamethasone 0.5 MG/ML / clotrimazole 10 MG/ML Topical Cream CUTANEOUS betamethasone 0.5 MG/ML / clotrimazole 10 MG/ML Topical CreamOriginal Medicationbetamethasone 0.5 MG/ML / clotrimazole 10 MG/ML Topical Cream *[facility]* 7 Active Encounters Encounter Location Date Provider Diagnosis [facility] [address] [place], [place] [id number] 11/09/2023 PIETERKELLEY WALSH Tinea unguium B35.1 ; Pain in right toe(s) M79.674 ; Pain in left toe(s) M79.675 ; Atherosclerosis of [place] arteries of extremities with intermittent claudication, bilateral [...] toe(s) (ICD-10 - M79.675) 11/09/2023 Atherosclerosis of [place] arteries of extremities with intermittent claudication, bilateral [...] problems develop. Provider Name:PIETER WALSH, 08:10:00 AM, [address], [address], [phone], Progress Notes * KLAUDIA HALEY BDOB:[birth year] (64 yo M)Acc No.[id number]:11/09/2023 Patient: KLAUDIA DUONG B Provider: Kristal Walsh DPM :1960 A ge:63 Y S ex:Male Date:11/09/2023 Address:[address] [place] [address] , [id number] Subjective: * Chief Complaints: * 1 . [...] seen by Dr. Alfaro was 08/2023., Initials [facility] , Patient presents to the office [...] betamethasone 0.5 MG/ML Topical Cream *Reorder from [employer] for eRx and Interaction Alerts*, Taking betamethasone 0.5 MG/ML / clotrimazole 10 MG/ML Topical Cream CUTANEOUS , Notes to Pharmacist: betamethasone 0.5 MG/ML / clotrimazole 10 MG/ML Topical CreamOriginal Medicationbetamethasone 0.5 MG/ML / clotrimazole 10 MG/ML Topical Cream *Reorder from [employer] for eRx and Interaction Alerts*, Taking betamethasone 0.5 MG/ML / clotrimazole 10 MG/ML Topical Cream [Lotrisone] CUTANEOUS , Notes to Pharmacist: betamethasone 0.5 MG/ML / clotrimazole 10 MG/ML Topical Cream [Lotrisone]Original Medicationbetamethasone 0.5 MG/ML / clotrimazole 10 MG/ML Topical Cream [Lotrisone] *Reorder from [employer] for eRx and Interacti, Taking clobetasol propionate 0.0005 MG/MG Topical Ointment [Temovate] CUTANEOUS , Notes to Pharmacist: clobetasol propionate 0.0005 MG/MG Topical Ointment [Temovate]Original Medicationclobetasol propionate 0.0005 MG/MG Topical Ointment [Temovate] *Reorder from [employer] for eRx and Interaction Alerts*, Taking clotrimazole 10 MG/ML Topical Cream CUTANEOUS , Notes to Pharmacist: clotrimazole 10 MG/ML Topical CreamOriginal Medicationclotrimazole 10 MG/ML Topical Cream *Reorder from [employer] for eRx and Interaction Alerts*, Medication List [...] - M79.675 4 . 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 Modifiers: Q8 * Electronic signature of PIETER WALSH DPM on 06/13/2024 at 01:36 PM CDT Sign off status: Pending * Provider: Kristal Walsh DPM Date: 0 11/09/2023 Generated for Michelle chi/Danielle/Nimesh on: 0 06/13/2024 01:36 PM CDT History and Physical Notes * HPI (History [...] seen by Dr. Alfaro was 08/2023., Initials [facility] , Patient presents to the office [...]
--- OUTSIDE RECORDS SUMMARY | 2024-06-13 13:36 | XMS_ITS | Referral Summary ---
Author Organization [place] [address] [address] [address] Care Team Providers Care Dean Of Instruction Name Role Phone Sandi Alfaro Primary Care Provider + Encounters Date Type Department Care Team Description 05/16/2024 Orders Only [facility] Cardiology [address] [place] [address] [address] [place] [address] Julio Richardson MD 05/10/2024 Orders Only [facility] Cardiology [address] [place] [address] [address] [place] [address] Fernando Modi MD 04/22/2024 Results Follow-Up [address] [place] [address] Harini Mann RN Chest pain, unspecified type (Primary Dx); Cardiovascular stress test abnormal 04/21/2024 8:15 AM [employer] Ancillary Procedure [facility] Cardiology [address] [place] [address] [address] [place] [phone] Coronary artery disease of [place] artery of [place] heart with stable angina pectoris 04/20/2024 11:15 AM [employer] Ancillary Procedure [facility] Cardiology [address] [place] [address] [address] [place] [phone] Coronary artery disease of [place] artery of [place] heart with stable angina pectoris 04/11/2024 Telephone [facility] Cardiology [address] [place] [address] [address] [place] [address] Fernando Modi MD NM stress test instructions 04/04/2024 1:00 PM [employer] Ancillary Procedure [facility] Cardiology [address] [place] [address] [place] [phone] Coronary artery disease of [place] artery of [place] heart with stable angina pectoris 03/29/2024 Telephone [place] [address] [place] [phone] Ifrah Gibson NP 03/28/2024 9:00 AM [employer] Office Visit [address] [phone] Ifrah Gibson NP Coronary artery disease of [place] artery of [place] heart with stable angina pectoris (Primary Dx); CVA, old, hemiparesis (HCC); Hypertension associated with diabetes (HCC); Recently quit using tobacco 03/24/[address] [address] Fernando Modi MD Chest Pain from Last [...] 24 hr tabletIndication s:Coronary artery disease of [place] artery of [place] heart with stable angina pectoris TAKE 2 [...] implantable loop record er 10/13/2017 Overview (10/13/2017): [employer] Reveal Loop Recorder. Dx; Cryptogenic Stroke. DOI 10/12/[address] Willoughby. [facility] remote monitoring. TIA (transient ischemic attack) 10/06/2017 S/P coronary artery stent placement 12/17/2016 Morbid obesity with BMI of 45.0-49.9, adult ([facility]) 08/13/2016 Mixed anxiety depressive disorder 05/01/2015 Overview (06/07/2016): Anxiety and depression Coronary artery disease of [place] artery of [place] heart with stable angina pectoris 02/20/2015 Overview (06/07/2016): Coronary artery disease involving [place] coronary artery of [place] heart with other form of angina pectoris [...] on file Legal Sex Male 3:15 AM [employer] Gender Identity Male 09/03/2018 6:22 AM CDT Sexual Orientation Straight 09/03/2018 6: 22 AM CDT Last Filed Vital Signs Vital Sign Reading Time Taken Comments Blood Pressure 132/72 03/28/2024 9:10 AM [employer] Pulse 82 01/18/2024 8:53 AM [employer] Temperature - - Respiratory Rate - - Oxygen Saturation 96% 03/28/2024 9:10 AM [employer] Inhaled Oxygen Concentration - - Weight 137.4 kg (303 lb) 03/28/2024 9:10 AM [employer] Height 182.9 cm (6') 03/28/2024 9:10 AM [employer] Body Mass Index 41.09 03/28/2024 9:10 AM [employer] Plan of Treatment Not on file Procedures Procedure Name Priority Date/Time Associated Diagnosis Comments CARDIOLOGY DOCUMENT SCAN Routine 05/04/2024 10:59 AM [employer] CARDIOLOGY DOCUMENT SCAN Routine 05/03/2024 10:55 AM [employer] CARDIOLOGY DOCUMENT SCAN Routine 05/03/2024 8:33 AM [employer] CARDIOLOGY DOCUMENT SCAN Routine 05/02/2024 10:52 AM [employer] CARDIOLOGY DOCUMENT SCAN Routine 05/02/2024 10:10 AM [employer] NM MPI SPECT (REST AND/OR STRESS) MULTIPLE STUDIES Schedule Routine, Read Routine (OP Routine) 04/20/2024 12:17 PM [employer] Coronary artery disease of [place] artery of [place] heart with stable angina pectoris TRANSTHORACIC ECHO (TTE) COMPLETE W DOPPLER/CF W CONTRAST Routine 04/04/2024 1:37 PM [employer] Coronary artery disease of [place] artery of [place] heart with stable angina pectoris LIPID PANEL Routine 10/20/2023 from Last 3 Months or Most Recently Relevant to Health Maintenance Results * Cardiology Document Scan (05/04/2024 10:59 AM [employer]) Anatomical Region Laterality Modality Other Julio Richardson MD CV CARDIAC SERVICES PRO CEDURES Final Result * Cardiology Document Scan (05/03/2024 10:55 AM [employer]) Anatomical Region Laterality Modality Other Julio Richardson MD CV CARDIAC SERVICES PRO CEDURES Final Result * Cardiology Document Scan (05/03/2024 8:33 AM [employer]) Anatomical Region Laterality Modality Other Julio Richardson MD CV CARDIAC SERVICES PRO CEDURES Final Result * Cardiology Document Scan (05/02/2024 10:52 AM [employer]) Anatomical Region Laterality Modality Other Fernando Modi MD CV CARDIAC SERVICES PROCEDURES F inal Result * Cardiology Document Scan (05/02/2024 10:10 AM [employer]) Anatomical Region Laterality Modality Other Fernando Modi MD CV CARDIAC SERVICES PROCEDURES F inal Result * NM MPI SPECT (Rest and/or Stress) Multiple Studies (04/20/2024 12:17 PM [employer]) Anatomical Region Laterality Modality Body N/A Nuclear Medicine 04/20/2024 11:1 5 AM [employer] Narrative 04/21/2024 4:44 PM [employer] [facility] Cardiology [address] [facility] [address] [address] [address] [facility] [address], [place] [address] P:[phone] P:[phone] MPI Imaging Report Patient Name: KLAUDIA HALEY B : 1960 Study Date: 04/20/2024 11:15:21 AM Gender: M Tech: [facility] Location: [facility] Provider: IFRAH GIBSON Height(Cm): 182.9 BSA: [...] Smoker, and I25.118 Atherosclerotic heart disease of [place] coronary artery with other forms of angina [...] By: Husam Raymundo MD 04/21/2024 4:43:33 PM [employer] Electronically Signed By: Husam Raymundo MD 04/21/2024 4:43:33 PM [employer] Procedure Note Husam Raymundo MD - 04/21/2024 [facility] Cardiology [address] [place] [address] [address] [facility] [address], [place] [address] P:[phone] P:[phone] MPI Imaging Report Patient Name: KLAUDIA HALEY B : 1960 Study Date: 04/20/2024 11:15:21 AM Gender: M [facility] Location: [facility] Provider: IFRAH GIBSON Height(Cm): 182.9 BSA: [...] Smoker, and I25.118 Atherosclerotic heart disease of [place] coronary artery withother forms of angina pectoris. [...] By: Husam Raymundo MD 04/21/2024 4:43:33 PM [employer] Electronically Signed By: Husam Raymundo MD 04/21/2024 4:43:33 PM [employer] us Ifrah Gibson [employer] IMG NM PROCEDURES Final R esult * TRANSTHORACIC ECHO (TTE) COMPLETE W DOPPLER/CF W CONTRAST (04/04/2024 1:37 PM [employer]) LV EF 75 % CONS SCIMAGE Anatomical Region Laterality Modality Ultrasound 04/04/2024 12:5 7 PM [employer] Narrative 04/04/2024 3:50 PM [employer] [facility] Cardiology [address], [place] [address] [address], [place] [address] P:[phone] P:[phone] Echocardiographic Report Patient Name: KLAUDIA HALEY B : 1960 Study Date: 04/04/2024 12:57:00 PM Gender: M Tech: Location: [facility] Provider: IFRAH GIBSON Height(Cm): 183 BSA: 2.64 Weight(Kg): 137.4 Heart Rate: 79 BP: 132 / 72 Quality: Definity contrast agent used to enhance endocardial border definition Order Provider: IFRAH GIBSON PROCEDURES: Echocardiographic Report: Transthoracic echocardiogram with complete 2D, M-Mode, color Doppler examination and Definity contrast. INDICATIONS: Coronary Artery Disease, Shortness of breath, and I25.118 Atherosclerotic heart disease of [place] coronary artery with other forms of angina [...] FINDINGS: Interpretation Site: Exam was interpreted at [facility]. Left Ventricle: Normal left ventricular size. Definity [...] views. Electronically Signed By: Todd Kwan MD, [facility] 04/04/2024 3:49:55 PM [employer] Procedure Note Todd Kwan MD - 04/04/2024 [facility] Cardiology [address], [place] [address] [address] [facility] [address], [place] [address] P:[phone] P:[phone] Echocardiographic Report Patient Name: KLAUDIA HALEY B : 1960 Study Date: 04/04/2024 12:57:00 PM Gender: M Tech: Location: [facility] Provider: IFRAH GIBSON Height(Cm): 183 BSA: 2.64 Weight(Kg): 137.4 Heart Rate: 79 BP: 132 / 72 Quality: Definity contrast agent used to enhance endocardial borderdefinition Order Provider: IFARH GIBSON PROCEDURES: Echocardiographic Report: Transthoracic echocardiogram with complete 2D, M-Mode, color Dopplerexamination and Definity contrast. INDICATIONS: Coronary Artery Disease, Shortness of breath, and I25.118 Atheroscleroticheart disease of [place] coronary artery with other forms of angina [...] FINDINGS: Interpretation Site: Exam was interpreted at [facility]. Left Ventricle: Normal left ventricular size. Definity [...] MD, [facility] 04/04/2024 3:49:55 PM [employer] Ifrah Gibson NP CV ECHO PROCEDURES Final [...] Most Recently Relevant to Health Maintenance [place] [address] MEDICARE MEDICARE [facility] Care Teams Dean Of Instruction Relationship Specialty Start Date End Date Sandi Alfaro PA PCP - General Nurse Practitioner 08/21/17
--- OUTSIDE RECORDS SUMMARY | 2024-06-13 13:37 | XMS_ITS | Clinical Summary ---
Author Organization [facility] Address [facility] [place] [address] Care Team Providers Care Venetian Blind Machine Operator Name Role Phone Sandi Alfaro Primary Care Provider [phone] Cheryl Huston RN Unavailable Unavailable Allergies No [...] 21 Active FLUTICASONE PROPIONATE 50 MCG/ACT nasal sprayIndications:A cute sinusitis SPRAY ONE SPRAY INTO EACH NOSTRIL ONCE DAILY 16 mL 1 09/07/19 21 Active LORATADINE 10 MG tabletIndications: Seasonal allergic rhinitis due to pollen TAKE 1 TABLET BY MOUTH EVERY DAY 30 tablet 32 11/08/19 21 Active isosorbide mononitrate ER 60 MG 24 hr tablet Take 2 tablets (120 mg total) by mouth daily. 08/13/19 22 Active montelukast (SINGULAIR) 10 MG tabletIndications: Chronic cough Take 1 tablet (10 mg total) by mouth nightly at bedtime. 90 tablet 3 11/16/19 22 Active Glucose Blood (ONETOUCH VERIO) test stripIndications:T ype 2 diabetes mellitus without complication, without long-term current use of insulin ([facility]/HCC HHS/HCC) USE 1 STRIP BY OTHER ROUTE 2 (TWO) TIMES A DAY. 100 strip 03/24/19 24 Active tamsulosin (FLOMAX) 0.4 MG Cap Take 1 capsule (0.4 mg total) by mouth nightly at bedtime. 04/21/19 24 Active Fluticasone-Umecli din-Vilant (TRELEGY ELLIPTA) 200-62.5-25 MCG/ACT AEROSOL POWDER, BREATH ACTIVATEDIndicatio ns:Mild emphysema (CMS/HCC HHS/HCC) Inhale 1 puff into the lungs daily as needed (shortness of breath). 05/13/19 24 Active vitamin B-12 (CYANOCOBALAMIN) 1000 MCG tablet Take 1 tablet (1,000 mcg total) by mouth daily. 30 tablet 05/15/19 24 Active traMADol (ULTRAM) 50 MG tabletIndications: Acute Pain < 3 Day Supply Take 1 tablet (50 mg total) by mouth every 6 (six) hours as needed for Pain. Indications: Acute Pain < 3 Day Supply 10 tablet 06/17/19 24 Active CPAP DEVICE, DME,Indications:Ob structive sleep apnea syndrome 1 Device by Does not apply route nightly at bedtime. This order includes all CPAP supplies as well 1 Device 07/02/19 24 Active HYDROcodone-acetam inophen (NORCO) 5-325 MG tablet take 1 tablet by mouth every 6 hours as needed for pain for 3 days 06/26/19 24 Active dulaglutide (TRULICITY) 3 MG/0.5ML injectionIndicatio ns:Dyslipidemia associated with type 2 diabetes mellitus (CMS/HCC HHS/HCC) Inject 3 mg into the skin once a week. 6 mL 11 08/26/19 24 Active fluticasone-salmet yane (ADVAIR HFA) 115-21 MCG/ACT inhalerIndications :Mild emphysema (CMS/HCC HHS/HCC) Inhale 2 puffs into the lungs 2 (two) times daily. 12 g 3 11/27/19 24 Active metFORMIN (GLUCOPHAGE) 1000 MG tabletIndications: Diabetic foot (CMS/HCC HHS/HCC) TAKE 1 TABLET BY MOUTH TWICE A DAY 180 tablet 1 01/18/20 24 Active ondansetron (ZOFRAN-ODT) 4 MG disintegrating tabletIndications: Nausea Take 1 tablet (4 mg total) by mouth every 8 (eight) hours as needed. FOR NAUSEA 10 tablet 01/27/20 24 Active meclizine (ANTIVERT) 25 MG tablet TAKE 1 TABLET BY MOUTH THREE TIMES A DAY NEEDED FOR DIZZINES 01/29/20 24 Active ondansetron (ZOFRAN-ODT) 4 MG disintegrating tabletIndications: Vertigo Take 1 tablet (4 mg total) by mouth every 8 (eight) hours as needed for Nausea. 30 tablet 03/22/19 25 Active losartan (COZAAR) 100 MG tabletIndications: Hypertensive heart disease with congestive heart failure, unspecified heart failure type ([facility]),Primary hypertension TAKE 1 TABLET BY MOUTH EVERY DAY 90 tablet 1 03/23/19 25 Active albuterol sulfate HFA 108 (90 Base) MCG/ACT inhaler INHALE 2 PUFFS EVERY 4 - 6 HOURS NEEDED FOR SHORTNESS OF BREATH OR WHEEZING FOR 30 DAYS 02/25/20 24 Active buPROPion SR (WELLBUTRIN SR) 150 MG 12 hr tabletIndications: Mixed anxiety depressive disorder TAKE 1 TABLET BY MOUTH TWICE A DAY 180 tablet 1 04/14/19 25 Active amLODIPine (NORVASC) 10 MG tabletIndications: Primary hypertension TAKE 1 TABLET BY MOUTH EVERY DAY 90 tablet 1 04/14/19 25 Active omeprazole (PRILOSEC) 40 MG capsuleIndications :Gastroesophageal reflux disease without esophagitis TAKE 1 CAPSULE (40 MG TOTAL) BY MOUTH DAILY. 90 capsule 1 04/15/19 25 Active JARDIANCE 10 MG tabletIndications: Type 2 diabetes mellitus without complication, without long-term current use of insulin ([facility]) TAKE 1 TABLET BY MOUTH EVERY DAY 90 tablet 05/14/19 25 Active ALPRAZolam (XANAX) 0.25 MG tabletIndications: Mixed anxiety depressive disorder,Insomnia Take 1 tablet (0.25 mg total) by mouth nightly at bedtime. TAKE 1 TABLET (0.25 MG TOTAL) BY MOUTH AT NIGHT FOR SLEEP Strength: 0.25 mg 30 tablet 06/01/19 25 Active naloxone (NARCAN) 4 MG/0.1ML nasal sprayIndications:M ixed anxiety depressive disorder 1 spray by Nasal route as needed for Opioid reversal. may repeat every 2 to 3 minutes in alternating nostrils until medical assistance becomes available 1 each 06/01/19 25 026 Active ALPRAZolam (XANAX) 0.25 MG tabletIndications: Mixed anxiety depressive disorder,Insomnia Take 1 tablet (0.25 mg total) by mouth nightly at bedtime. TAKE 1 TABLET (0.25 MG TOTAL) BY MOUTH AT NIGHT FOR SLEEP Strength: 0.25 mg 30 tablet 05/03/19 25 025 Discontin ued(Reord er) Active Problems Problem Noted Date Diagnosed Date Thrombocytopenia 03/31/2024 Polyneuropathy associated with underlying diseas e ([facility]) 12/16/2023 Morbid (severe) obesity due to excess calories 0 05/15/2022 Body mass index (BMI) 40.0-44.9, adult Acute hyperglycemia 05/17/2021 Anxiety 05/17/2021 Arthritis 05/17/2021 Atypical syncope 05/17/2021 Calculus of left ureter 05/17/2021 Eczema 05/17/2021 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/17/2021 USP current use of anticoagulant therapy 0 05/17/2021 Peripheral neuropathy 05/17/2021 Rectal polyp 05/17/2021 Swelling of left lower extremity 05/17/2021 Tear of medial meniscus of knee 05/17/2021 Tobacco abuse 05/17/2021 Pain due to ureteral stent 05/17/2021 Cigarette nicotine dependence without complicati on 03/14/2019 Seasonal allergic rhinitis due to pollen 019 Chronic heart failure with p reserved ejection fraction ([facility]) 11/12/2018 Arthralgia of left hand 11/02/2018 Enchondroma of bone of hand, left 11/02/2018 Carpal tunnel syndrome on left 08/26/2018 Cryptogenic stroke ([facility]) 07/06/2018 Skin lesion of right arm 06/28/2018 Weakness 05/26/2018 Status post placement of implantable loop record er 10/13/2017 Overview (01/13/2018): Overview: [employer] Reveal Loop Recorder. Dx; Cryptogenic Stroke. DOI 10/12/[address] Willoughby. [employer] remote monitoring. TIA (transient ischemic attack) 10/06/2017 Mild emphysema ([facility]) 08/28/2017 Hepatic steatosis 08/28/2017 Memory loss 05/18/2017 Chest pain 04/30/2017 S/P coronary artery stent placement 12/17/2016 Hemorrhoids 10/03/2016 Hearing loss 08/01/2016 Decreased hearing 07/17/2016 Chronic nausea 03/27/2016 Diabetic foot ([facility]) 03/10/2016 Abdominal wall bulge 03/10/2016 CHF (congestive heart failure) ([facility]) 01/14/2016 Peripheral edema 12/19/2015 Tinnitus 11/08/2015 History of kidney stones 10/03/2015 Insomnia 05/07/2015 Chronic cough 03/20/2015 Hypertensive heart disease w ith congestive heart failure ([facility]) 02/20/2015 Overview (01/13/2018): Overview: Hypertensive heart disease with diastolic heart failure Coronary artery disease of n ative artery of [place] heart with stable angina pectoris 02/20/2015 Overview (01/13/2018): Overview: Coronary artery disease involving [place] coronary artery of [place] heart with other form of angina pectoris CVA, old, hemiparesis ([facility]) 02/21/20 15 Overview (01/13/2018): Overview: CVA, old, hemiparesis Dyslipidemia associated with type 2 diabetes mellitus ([facility]) 02/20/2015 Overview (01/13/2018): Overview: DM (diabetes mellitus) Overview: DM type 2 with diabetic dyslipidemia Mixed diabetic hyperlipidemi a associated with type 2 diabetes mellitus ([facility]) 02/20/2015 Overview (05/17/2021): DM type [...] Overview: HTN (hypertension), benign Cerebrovascular accident (CVA) ([facility]) 08/23/2013 Hyperlipidemia 08/23/2013 Resolved Problems Problem Noted Date Diagnosed Date Resolved Date Left nephrolithiasis 10/07/2017 018 Encounter for screening for lung cancer 04/09/2017 06/28/2018 BMI 45.0-49.9, adult 10/03/2016 023 Morbid obesity 08/13/2016 05/15/2022 Encounter for preventive health examination 08/23/2013 06/28/2018 Encounters Date Type Department Care Team Description 05/31/2024 Telephone [facility] Family & Internal Medicine [address] [address] Sandi Alfaro APNP Medication Request 05/05/2024 Scan [facility] Scanned, Doc Med Group 05/03/2024 Scan [facility] Scanned, Doc Med Group Cut Out Worker Report (SCAN)* 05/02/2024 Scan [facility]VCS Scanned, Doc Med Group 05/01/2024 Scan [facility] SRVCS Scanned, Doc Med Group Lab (SCAN) 05/01/2024 Scan [facility]VCS Scanned, Doc Med Group Lab (SCAN); Image (SCAN) 04/27/2024 Scan [facility] Scanned, Doc Med Group Dilated Eye Exam (SCAN) 04/14/2024 Scan [facility] Scanned, Doc Med Group Lab (SCAN); CT (SCAN) 04/11/2024 Telephone [facility] Family & Internal [address] [phone] Sandi Alfaro APNP Results 03/31/2024 8:40 AM COMMERCIAL LOAN UNDERWRITER Office Visit [facility] Family & Internal [address] [address] Sandi Alfaro APNP ER F/U 03/31/2024 Travel 03/29/2024 Scan [facility] Scanned, Doc Med Group Image (SCAN) 03/28/2024 Scan [facility] Scanned, Doc Med Group 03/23/2024 Scan [facility] Scanned, Doc Med Group Lab (SCAN) 03/23/2024 Scan [facility] Scanned, Doc Med Group Lab (SCAN) 03/22/2024 Telephone [facility] Internal [address] [phone] Sandi Alfaro APNP Medication Request; Advice 03/18/2024 Scan [facility] Scanned, Doc Med Group Lab (SCAN) 03/18/2024 Scan [facility] Scanned, Doc Med Group Lab (SCAN); CT (SCAN); Image (SCAN) from Last 3 Months Immunizations Immunization Administration Dates Next Due Fluzone (IIV3, Trivalent, [...] pur e alcohol) very rarely 6 beers/year [facility] Utilities Answer Date Recorded In the past 12 months has [employer], [employer], or water [employer] threatened to shut off services in your [...] Recorded Patient Health Questionnaire-2 Score 0 03/31/2024 [facility] - [...] Sex Assigned at Male 03/31/2024 8:58 AM COMMERCIAL LOAN UNDERWRITER Legal Sex Male 8:01 PM CDT Gender Identity Not on file Sexual Orientation Not on file Last Filed Vital Signs Vital Sign Reading Time Taken Comments Blood Pressure 128/72 03/31/2024 8:56 AM COMMERCIAL LOAN UNDERWRITER Pulse 81 03/31/2024 8:56 AM COMMERCIAL LOAN UNDERWRITER Temperature 36.3 C (97.4 F) 03/31/2024 8:56 AM COMMERCIAL LOAN UNDERWRITER Respiratory Rate 18 03/31/2024 8:56 AM COMMERCIAL LOAN UNDERWRITER Oxygen Saturation 98% 03/31/2024 8:56 AM COMMERCIAL LOAN UNDERWRITER Inhaled Oxygen Concentration - - Weight 139 kg (306 lb 6.4 oz) 03/31/2024 8:56 AM COMMERCIAL LOAN UNDERWRITER Height 182.9 cm (6') 03/31/2024 8:56 AM COMMERCIAL LOAN UNDERWRITER Body Mass Index 41.56 03/31/2024 8:56 AM COMMERCIAL LOAN UNDERWRITER Plan of Treatment Upcoming Encounters Date Type Department Care Team (Late st Contact Info) Description 06/21/2024 8:40 AM CDT Office Visit [facility] Family & Internal Medicine [id number] [place] [address] Sandi Alfaro APNP [address] [place] [address] Health Maintenance Due Date Last Done Comments COVID-19 Vaccine ( season) 2023 12/31/2021, 12/31/2020, 05/11/2020, Additional history exists ASCVD LDL 05/12/2024 05/13/2023, 04/2 10/2021, 08/24/2017, Additional history exists Lipid Panel 05/12/2024 05/13/2023, [...] Cancer Screening Colonoscopy (10 Years) 03/28/2025 03/28/2015 DTaP, Tdap and Td Vaccines (4 - Td or Tdap) 02/25/2026 02/26/2016, 02/26/2016, 11/22/2014 Diabetes: Retinopathy Eye Exam 04/27/2026 04/27/2024, 04/20/2023, 04/07/2022, Additional history exists AAA SCREENING Completed 09/21/2020, 03/03, 04/28/2017 Hepatitis C Completed 06/28/2021, 05/26/2018 Pneumococcal Vaccine: 50+ Years Completed 06/28/2021 PHQ-2 (Physician [place]) Completed 03/31/2024 Meningococcal B Vaccine Aged Out No l onger eligible based on patient's age to complete this topic Meningococcal Vaccine Aged Out No shyam jose eligible based on patient's age to complete this topic RSV Immunizations Under 20 Months Aged Out No longer eligible based on patient's age to complete this topic Procedures Procedure Name Priority Date/Time Associated Diagnosis Comments ASSOCIATE DIRECTOR OF NURSING 05/03/2024 OUTSIDE LAB (SCAN ORDER) Routine 05/01/2024 OUTSIDE LAB (SCAN ORDER) 05/01/2024 IMAGE GENERIC 05/01/2024 DIABETIC RETINOPATHY EXAM (NEGATIVE)(SCAN ORDER) Routine 04/27/2024 CT GENERIC 04/14/2024 OUTSIDE LAB (SCAN ORDER) 04/14/2024 OUTSIDE LAB (SCAN ORDER) 04/14/2024 COLLECTION VENOUS BLOOD VENIPUNCTURE Routine 03/31/2024 9:56 AM COMMERCIAL LOAN UNDERWRITER Body mass index (BMI) 40.0-44.9, adult ([facility]/HCC) Mixed diabetic hyperlipidemia associated with type 2 diabetes mellitus ([facility]/HCC [facility]/HCC) Prostate cancer screening Primary hypertension PROSTATE SPECIFIC ANTIGEN,SCREENING Routine 03/31/2024 9:55 AM COMMERCIAL LOAN UNDERWRITER Prostate cancer screening CBC W/DIFF AUTOMATED Routine 03/31/2024 9:55 AM COMMERCIAL LOAN UNDERWRITER Thrombocytopenia COMPREHENSIVE METABOLIC PANEL Routine 03/31/2024 9:55 AM COMMERCIAL LOAN UNDERWRITER Body mass index (BMI) 40.0-44.9, adult (CMS/HCC) Mixed diabetic hyperlipidemia associated with type 2 diabetes mellitus (CMS/HCC HHS/HCC) Primary hypertension MG/PCCL UDS W CONF Routine 03/31/2024 8: 59 AM COMMERCIAL LOAN UNDERWRITER Long-term use of high-risk medication IMAGE GENERIC [...] LAB (SCAN ORDER) 03/18/2024 IMAGE GENERIC 03/18/2024 HEMOGLOBIN, GLYCOSYLATED Routine 02/05/2024 Type 2 diabetes mellitus without complication, without long-term current use of insulin (CMS/HCC HHS/HCC) LIPID PANEL Routine 05/13/2023 6:00 AM CDT HEPATITIS C ANTIBODY W/RFX TO HCV RNA Routine 06/28/2021 11:22 AM CDT Need for hepatitis C screening test CT CHEST WO CONT LOW DOSE Routine 09/21/2020 10:28 AM CDT Nicotine dependence, cigarettes, with other nicotine-induced disorders COLONOSCOPY GENERIC (SCAN ORDER) Routine 03/28/2015 from Last 3 Months or Most Recently Relevant to Health Maintenance Results * ASSOCIATE DIRECTOR OF NURSING (05/03/2024) Anatomical Region Laterality Modality Other 05/03/2024 Result [facility] Scanned SCANNING Final Resu lt * OUTSIDE LAB (05/01/2024) Only the most recent of10 resultswithin the time period is included. 05/01/2024 Result [facility] Scanned SCANNING Final Resu lt Performing Organization Address [facility] de Phone Number [facility] ONBASE * IMAGE GENERIC (05/01/2024) Only the most recent of3 resultswithin the time period is included. Anatomical Region Laterality Modality Other 05/01/2024 Result [facility] Scanned SCANNING Final Resu lt * DIABETIC RETINOPATHY EXAM (NEGATIVE) (04/27/2024) Result [facility] Scanned SCANNING Final Resu lt Performing Organization Address [facility] de Phone Number [facility] ONBASE * CT GENERIC (04/14/2024) Only the most recent of3 resultswithin the time period is included. Anatomical Region Laterality Modality Other 04/14/2024 Result [facility] Scanned SCANNING Final Resu lt * PROSTATE SPECIFIC ANTIGEN,SCREENING (03/31/2024 9:55 AM COMMERCIAL LOAN UNDERWRITER) PSA 2.27 <4.00 NG/ML 03/31/2024 3:04 PM COMMERCIAL LOAN UNDERWRITER [facility] Comment: ASSAY PERFORMED BY [employer] IMMUNOASSAY METHODOLOGY USING SIEMENS DIMENSION REAGENT. PATIENT RESULTS DETERMINED BY ASSAYS FROM DIFFERENT MANUFACTURERS AND/OR BY DIFFERENT METHODS MAY NOT BE COMPARABLE. 03/31/2024 9:55 AM COMMERCIAL LOAN UNDERWRITER Result [facility] Sandi LYNCH LABORATORY Final Resul t -[facility] [address] [place] [address], * (ABNORMAL) COMPREHENSIVE METABOLIC PANEL (03/31/2024 9:55 AM COMMERCIAL LOAN UNDERWRITER) [facility] SODIUM S/P/B 139 136 - 145 MMOL/L 03/31/2024 3:29 PM [facility] POTASSIUM S/P/B 4.2 3.5 - 5.1 MMOL/L 03/31/2024 3:29 PM [facility] CHLORIDE S/P/B 103 98 - 107 MMOL/L 03/31/2024 3:29 PM [facility] CO2 25.2 21 - 32 MMOL/L 03/31/2024 3:29 PM [facility] GLUCOSE 127(H) 70 - 99 MG/DL 03/31/2024 3:29 PM [facility] BUN 12 7 - 18 MG/DL 03/31/2024 3:29 PM [facility] CREATININE S/P/B 1.11 0.70 - 1.30 MG/DL 03/31/2024 3:29 PM [facility] CALCIUM S/P/B 9.1 8.4 - 10.5 MG/DL 03/31/2024 3:29 PM [facility] BILIRUBIN TOTAL S/P/B 0.6 0.2 - 1.0 MG/DL 03/31/2024 3:29 PM [facility] ALKALINE PHOSPHATASE S/P/B 76 45 - 115 U/L 03/31/2024 3:29 PM [facility] AST 28 15 - 37 U/L 03/31/2024 3:29 PM [facility] ALT 46 16 - 63 U/L 03/31/2024 3:29 PM [facility] TOTAL PROTEIN S/P/B 6.9 6.4 - 8.2 G/DL 03/31/2024 3:29 PM COMMERCIAL LOAN UNDERWRITER [facility] ALBUMIN S/P/B 3.8 3.4 - 5.0 G/DL 03/31/2024 3:29 PM COMMERCIAL LOAN UNDERWRITER [facility] ANION GAP 10.8 5 - 15 MMOL/L 03/31/2024 3:29 PM COMMERCIAL LOAN UNDERWRITER [facility] Comment:REFERENCE RANGE NOT ESTABLISHED OSMOLALITY (CALC) 289 MOSM/KG 025 3:29 PM COMMERCIAL LOAN UNDERWRITER [facility] Comment:REFERENCE RANGE NOT ESTABLISHED GFR ESTIMATE 74(L) >90 ML/MIN/1. 73 M2 03/31/2024 3:29 PM COMMERCIAL LOAN UNDERWRITER [facility] GFR NOTES GFR REFERENCE S: 03/31/2024 3:29 PM COMMERCIAL LOAN UNDERWRITER [facility] Comment: THE ESTIMATED GFR IS CALCULATED [...] FAILURE: <15 ml/min/1.73 m2 03/31/2024 9:55 AM COMMERCIAL LOAN UNDERWRITER us Sandi LYNCH LABORATORY Final Resul t [facility] [address] [place] [address], * (ABNORMAL) CBC W/DIFF AUTOMATED (03/31/2024 9:55 AM COMMERCIAL LOAN UNDERWRITER) WBC 7.37 4.00 - 10.80 x10'3/uL 03/31/2024 3:14 PM COMMERCIAL LOAN UNDERWRITER [facility] RBC 4.34(L) 4.50 - 6.10 x10'6/uL 03/31/2024 3:14 PM [facility] HGB 13.2 13.0 - 18.0 G/DL 03/31/2024 3:14 PM [facility] HCT 38.9 37.0 - 52.0 % 03/31/2024 3:14 PM [facility] MCV 89.6 78.0 - 100.0 FL 03/31/2024 3:14 PM [facility] MCH 30.4 27.0 - 31.0 PG 03/31/2024 3:14 PM [facility] MCHC 33.9 33.0 - 36.0 G/DL 03/31/2024 3:14 PM [facility] RDW 14.0 11.5 - 14.5 % 03/31/2024 3:14 PM [facility] PLT 140(L) 150 - 350 x10'3/uL 03/31/2024 3:14 PM [facility] MPV 12.2(H) 7.4 - 10.4 FL 03/31/2024 3:14 PM [facility] DIFFERENTIAL TYPE AUTOMATED DIFFERENTIAL 03/31/2024 3:15 PM [facility] NEUTROPHILS % 73.8 % 03/31/2024 3:15 PM [facility] LYMPHOCYTES % 14.5 % 03/31/2024 3:15 PM [facility] MONOCYTES % 9.0 % 03/31/2024 3:15 PM [facility] EOSINOPHILS % 2.0 % 03/31/2024 3:15 PM [facility] BASOPHILS % 0.3 % 03/31/2024 3:15 PM [facility] IMMATURE GRANS % 0.4 % 03/31/2024 3:15 PM COMMERCIAL LOAN UNDERWRITER [facility] ABS. NEUTROPHILS 5.44 1.60 - 8.30 x10'3/uL 03/31/2024 3:15 PM COMMERCIAL LOAN UNDERWRITER [facility] ABS. LYMPHOCYTES 1.07 0.80 - 4.70 x10'3/uL 03/31/2024 3:15 PM COMMERCIAL LOAN UNDERWRITER [facility] ABS. MONOCYTES 0.66 0.00 - 1.50 x10'3/uL 03/31/2024 3:15 PM COMMERCIAL LOAN UNDERWRITER [facility] ABS. EOSINOPHILS 0.15 0.00 - 0.40 x10'3/uL 03/31/2024 3:15 PM COMMERCIAL LOAN UNDERWRITER [facility] ABS. BASOPHILS 0.02 0.00 - 0.20 x10'3/uL 03/31/2024 3:15 PM COMMERCIAL LOAN UNDERWRITER [facility] ABS. IMMATURE GRANULOCYTES 0.03 0.00 - 0.03 x10'3/uL 03/31/2024 3:15 PM COMMERCIAL LOAN UNDERWRITER [facility] 03/31/2024 9:55 AM COMMERCIAL LOAN UNDERWRITER Sandi LYNCH LABORATORY Final Resul t [facility] [address] [place] [address], * (ABNORMAL) MG/PCCL UDS W CONF (03/31/2024 8:59 AM COMMERCIAL LOAN UNDERWRITER) RESULT SUMMARY [facility] Comment: Prescribed Prescribed Not Prescribed Consistent Inconsistent Inconsistent Hydrocodone Tramadol PRESCRIBED DRUG 1 (U) Hydrocodone [facility] PRESCRIBED DRUG 2 (U) Tramadol [facility] [place] SCREEN (U) NEGATIVE <0.5 ng/mL [facility] [...] [facility] WO[facility] NOTE [facility] Comment: This drug testing is for medical treatment only. Analysis was performed as non-forensic testing and these results should be used only by healthcare providers to render diagnosis or treatment, or to monitor progress of medical conditions. LDT Notes: Confirmation tests were developed and their analytical performance characteristics have been determined by [employer]. It has not been cleared or approved by the FDA. This assay has been validated pursuant to the CLIA regulations and is used for clinical purposes. medMATCH(R) enables providers to identify if drug use is consistent or inconsistent with a corresponding prescribed medication(s) list. Healthcare Providers needing Interpretation assistance, please contact us at [phone] ( ) M-F, 8am to 10pm EST URINE SPECIMEN / Unknown 03/31/2024 8:59 AM COMMERCIAL LOAN UNDERWRITER 03/31/2024 11:43 PM COMMERCIAL LOAN UNDERWRITER Narrative Resulting Agency Comment Performing Organization Information: Site ID: [id number] Name: [facility] Address: [address] [place] [address] Director: Clifton Ca Site ID: [id number] Name: [facility] Address: [address] [place] [address] Director: Velvet Juarez MD Sandi LYNCH URINE ORDERABLES Final Resu lt Performing Organization Address [facility]/ZIP Co de Phone Number [facility] [employer] [facility] [address] [facility] [place] [address], [facility] [place] [address] [place] [address] * OUTSIDE LAB COVID-19 (03/23/2024) Only the most recent of2 resultswithin the time period is included. CORONAVIRUS SARS COV 2 PCR (RESP) NOT DETECTED NOT DETECTED [facility] ONBASE 03/23/2024 Result [facility] Scanned SCANNING Final Resu lt Performing Organization Address [facility] de Phone Number [facility] ONBASE * OUTSIDE PT/INR (SCAN ORDER) (03/23/2024) Only the most recent of2 resultswithin the time period is included. 03/23/2024 [facility] Scanned SCANNING Final Resu lt * HEMOGLOBIN, GLYCOSYLATED (02/05/2024) HGB A1C 6.5 % [facility] 02/05/2024 Sandi LYNCH LABORATORY Final Resul t -[facility] [address] [place] [address], [place] * (ABNORMAL) LIPID PANEL (05/13/2023 6:00 AM CDT) CHOLESTEROL 87 <200 MG/DL 05/13/2023 7:18 AM CDT [facility] TRIGLYCERIDES 213(H) <150 MG/DL 05/13/2023 7:18 AM CDT [facility] HDL 24(L) >40.0 MG/DL 05/13/2023 7:18 AM CDT [facility] LDL (CALCULATED) 20 <100 MG/DL 05/13/2023 7:18 AM CDT [facility] NON HDL CHOLESTEROL 63 <130 MG/DL 05/13/2023 7:18 AM CDT [facility] CHOL/HDL RATIO 3.6 0.0 - 4.5 05/13/2023 7:18 AM CDT [facility] VLDL CALCULATION 43 5 - 55 MG/DL 05/13/2023 7:18 AM CDT [facility] LIPID INTERPRETATION 05/13/2023 7:18 AM CDT [facility] Comment: NIH CONCENSUS REPORT RECOMMENDATIONS: ADULT CHILD LOW RISK: CHOLESTEROL <200 <170 TRIGLYCERIDE <150 --- HDL >=60 --- LDL <100 <110 BORDERLINE: CHOLESTEROL 200-239 170-199 TRIGLYCERIDE 150-199 --- HDL 40-59 --- LDL 100-159 110-129 HIGH RISK: CHOLESTEROL >=240 >=200 TRIGLYCERIDE >=200 --- HDL <40 --- LDL >=160 >=130 05/13/2023 6:00 AM CDT us Ayanna Bellamy MD LABORATORY Final Re sult [facility] [address] [place] [address], * HEPATITIS C ANTIBODY W/RFX TO HCV [...] a test for HCV RNA (test code 56067) is suggested. For additional information please refer to http://education.[employer]/faq/GMK09y0 (This link is being provided for informational/ educational purposes only.) 06/28/2021 11:2 2 AM CDT 06/29/2021 10:18 AM CDT Sandi LYNCH LABORATORY Final Resul t [facility] [address] [place] [address] * CT CHEST WO CONT LOW DOSE [...] As above. Thank you for choosing the [facility]'s Lung Screening Program. Referred By: NICK [...] in the left lung base posteriorly. Implanted security monitor device within the left chest subcutaneous [...] As above. Thank you for choosing the [facility] Screening[facility]. Referred By: NICK HENDERSON [...] 11:13 PM 05/01/2017 6:00 PM Care Teams Venetian Blind Machine Operator Relationship Specialty Start Date End Date Sandi Alfaro APNP Family & Internal Medicine [address] [address] PCP - General ADVANCED PRACTICE ELECTRONIC REPAIR TROUBLESHOOTER 04/28/17 Cheryl Huston, computer forensics technician (Ambulatory) REGISTERED NURSE 03/23/19
--- OUTSIDE RECORDS SUMMARY | 2024-06-13 13:37 | XMS_ITS | Encounter Summary ---
Author Organization [facility] Address [address] [place] [address] Care Team Providers Care Asic Design Engineer Name Role Phone Sandi Alfaro Primary Care Provider [phone] Cheryl Huston RN Unavailable Unavailable Encounter Details Date Type Department Care Team (Late st Contact Info) Description 08/18/2023 Parent Media Group Message Enc [facility] Multispecialty Care - Health system [address] [facility], [address] [place] [phone] [place], [facility] Provider Results Social History Tobacco Use Types Packs/Day Years Used Date Smoking Tobacco: Every Day Cigarettes 0.3 40 Smokeless Tobacco: Never Comments:currently smoking 2 -3 cigarettes a day Alcohol Use Standard Drinks/Week Comments Yes 0 (1 standard drink = 0.6 oz pur e alcohol) very rarely 6 beers/year [facility] Utilities Answer Date Recorded In the past [address] [facility] [employer], gas, oil, or water [employer] threatened to shut off services in your [...] How often do you attend chur or islam services? Never 05/12/2023 Do you belong to any clubs o r organizations such as presybeterian groups, unions, fraternal or athletic groups, or [...] Sex Assigned at Male 03/31/2024 8:58 AM TUBE MOUNTER Legal Sex Male 8:01 PM CDT Gender [...] Description 06/21/2024 8:40 AM CDT Office Visit [facility] Family & Internal Medicine [address] [phone] Sandi Alfaro APNP [address] [place] [address] documented as of this encounter Visit Diagnoses Not on filedocumented in this encounter Additional Health Concerns Assessment Noted Time PHQ-9 Depression Total Score: 0 05/21/19 24 11:21 AM CDT documented as of this encounter Care Teams Asic Design Engineer Relationship Specialty Start Date End Date Sandi Alfaro APNP Family & Internal Medicine [address] [address] PCP - General ADVANCED PRACTICE COOLING PAN TENDER 04/28/17 Cheryl Huston slagger (Ambulatory) REGISTERED NURSE 03/23/19 documented as of this encounter
--- OUTSIDE RECORDS SUMMARY | 2024-06-13 13:37 | XMS_ITS | Encounter Summary ---
Author Organization [facility] Address [address] [place] [address] Care Team Providers Care Patient Representative Name Role Phone Sandi Alfaro Primary Care Provider [phone] Cheryl Huston RN Unavailable Unavailable Encounter Details Date Type Department Care Team (Late Contact Info) Description 08/27/2022 MyChart Message Enc [facility] Medical [address] [phone] [employer] [place], [facility] Provider Air Quality Message Social History [...] Sex Assigned at Male 03/31/2024 8:58 AM ORCHESTRA DIRECTOR Legal Sex Male 8:01 PM CDT Gender [...] Department Care Team (Late Contact Info) Description 06/21/2024 8:40 AM CDT Office Visit [facility] Medical [facility] Family & Internal Medicine [address] [phone] Sandi Alfaro APNP [address] [place] [address] documented as of this encounter Visit Diagnoses Not on filedocumented in this encounter Additional Health Concerns Infection Onset Date Last Indicated Resolved Time COVID-19 Rule Out 05/12/2023 05/12/2023 05/13/2023 12:01 AM CDT Influenza - Seasonal 05/14/2023 05/14/2023 024 12:32 AM CDT Assessment Noted Time PHQ-9 Depression Total Score: 13 023 10:48 AM CDT documented as of this encounter Care Teams Patient Representative Relationship Specialty Start Date End Date Sandi Alfaro APNP Family & Internal Medicine [address] [address] PCP - General ADVANCED PRACTICE SUPERVISOR DA[employer]Y [employer]ITATION 04/28/17 Cheryl Huston, char filter operator helper (Ambulatory) REGISTERED NURSE 03/23/19 documented as of this encounter
--- OUTSIDE RECORDS SUMMARY | 2024-06-13 13:37 | XMS_ITS ---
Author Organization [facility] Address [address] [place], [place] [address] Care Team Providers Care Chalk Extruding Machine Operator Name Role Phone PIETER WALSH Unavailable [phone] Sandi Alfaro Unavailable Unavailable REASON FOR VISIT [...] 10 MG/ML Topical Cream [Lotrisone] *Reorder from [employer] for eRx and Interacti 7 Active betamethasone 0.5 MG/ML / clotrimazole 10 MG/ML Topical Cream CUTANEOUS betamethasone 0.5 MG/ML / clotrimazole 10 MG/ML Topical CreamOriginal Medicationbetamethasone 0.5 MG/ML / clotrimazole 10 MG/ML Topical Cream *Reorder from [employer] for eRx and Interaction Alerts* 7 Active clobetasol propionate 0.0005 MG/MG Topical Ointment [Temovate] CUTANEOUS clobetasol propionate 0.0005 MG/MG Topical Ointment [Temovate]Original Medicationclobetasol propionate 0.0005 MG/MG Topical Ointment [Temovate] *Reorder from [employer] for eRx and Interaction Alerts* 7 Active clotrimazole 10 MG/ML Topical Cream CUTANEOUS clotrimazole 10 MG/ML Topical CreamOriginal Medicationclotrimazole 10 MG/ML Topical Cream *Reorder from [employer] for eRx and Interaction Alerts* 7 Active Augmented betamethasone 0.5 MG/ML Topical Cream CUTANEOUS Augmented betamethasone 0.5 MG/ML Topical CreamOriginal MedicationAugmented betamethasone 0.5 MG/ML Topical Cream *Reorder from [employer] for eRx and Interaction Alerts* 7 Active Encounters Encounter Location Date Provider Diagnosis [facility] [address] [place], [place] [phone] 01/25/2024 PIETER LATONYAK Tinea unguium B35.1 ; [...] toe(s) (ICD-10 - M79.675) 01/25/2024 Atherosclerosis of ruby arteries of extremities with [...] problems develop. Provider Name:PIETER WALSH, 08:10:00 AM, [address], [address], [phone], Progress Notes * KLAUDIA HALEY BDOB:[birth year] (64 yo M)Acc No.[id number]:01/25/2024 Patient: KLAUDIA DUONG B Provider: Kristal Walsh DPM :1960 A ge:63 Y S ex:Male Date:01/25/2024 Address:[address] [place] [address] , [facility] Subjective: * Chief Complaints: * 1 . [...] seen by Dr. Alfaro was 01/2024., Initials [facility]. * Medical History: * Medications: T aking Augmented betamethasone 0.5 MG/ML Topical Cream CUTANEOUS , Notes to Pharmacist: Augmented betamethasone 0.5 MG/ML Topical CreamOriginal MedicationAugmented betamethasone 0.5 MG/ML Topical Cream *Reorder from [employer] for eRx and Interaction Alerts*, Taking betamethasone 0.5 MG/ML / clotrimazole 10 MG/ML Topical Cream CUTANEOUS , Notes to Pharmacist: betamethasone 0.5 MG/ML / clotrimazole 10 MG/ML Topical CreamOriginal Medicationbetamethasone 0.5 MG/ML / clotrimazole 10 MG/ML Topical Cream *Reorder from [facility] for eRx and Interaction Alerts*, Taking betamethasone 0.5 MG/ML / clotrimazole 10 MG/ML Topical Cream [Lotrisone] CUTANEOUS , Notes to Pharmacist: betamethasone 0.5 MG/ML / clotrimazole 10 MG/ML Topical Cream [Lotrisone]Original Medicationbetamethasone 0.5 MG/ML / clotrimazole 10 MG/ML Topical Cream [Lotrisone] *Reorder from [facility] for eRx and Interacti, Taking clobetasol propionate 0.0005 MG/MG Topical Ointment [Temovate] CUTANEOUS , Notes to Pharmacist: clobetasol propionate 0.0005 MG/MG Topical Ointment [Temovate]Original Medicationclobetasol propionate 0.0005 MG/MG Topical Ointment [Temovate] *Reorder from [facility] for eRx and Interaction Alerts*, Taking clotrimazole 10 MG/ML Topical Cream CUTANEOUS , Notes to Pharmacist: clotrimazole 10 MG/ML Topical CreamOriginal Medicationclotrimazole 10 MG/ML Topical Cream *Reorder from [facility] for eRx and Interaction Alerts*, Medication List [...] Information: * Visit Code: * Procedure Codes: 26021 DEBRIDE NAIL, 6 OR MORE. Modifiers: Q8 * Electronic signature of PIETER WALSH DPM on 06/13/2024 at 01:36 PM CDT Sign off status: Pending * Provider: Kristal Walsh DPM Date: 03/26/2023 Generated for Michelle Drummond/Jeremyitting on: 0 06/13/2024 01:36 PM CDT History [...]
--- OUTSIDE RECORDS SUMMARY | 2024-06-13 13:37 | XMS_ITS | Encounter Summary ---
Author Organization [facility] Address [address] [place] [address] Care Team Providers Care Logging Rafter Laborer Name Role Phone Sandi Alfaro Primary Care Provider [phone] Sandi Alfaro Unavailable [phone] Cheryl Huston RN Unavailable Unavailable Encounter Details Date Type Department Care Team (Latest Contact Info) Description 10/26/2017 Abstract [facility] , Shay Hughes MD Social [...] Sex Assigned at Male 03/31/2024 8:58 AM FLOUR TESTER Legal Sex Male 8:01 PM CDT Gender Identity Not on file Sexual Orientation Not on file documented as of this encounter Plan of Treatment Upcoming Encounters Date Type Department Care Team (Late st Contact Info) Description 06/21/2024 8:40 AM CDT Office Visit [facility] Medical Group Family & Internal Medicine [address] [phone] Sandi Alfaro APNP [address] [place] [address] documented as of this encounter Visit Diagnoses Not on filedocumented in this encounter Additional Health Concerns Infection Onset Date Last Indicated Resolved Time COVID-19 Rule Out 10/24/2019 11/25/2019 11/27/2019 1:56 AM CDT COVID-19 Rule Out 05/03/2020 05/03/2020 05/03/2020 3:25 PM FLOUR TESTER COVID-19 Rule Out 05/12/2023 05/12/2023 05/13/2023 12:01 AM CDT Influenza - Seasonal 05/14/2023 05/14/2023 024 12:32 AM CDT documented as of this encounter Care Teams Logging Rafter Laborer Relationship Specialty Start Date End Date Sandi Alfaro APNP Family & Internal Medicine [address] [address] PCP - General ADVANCED PRACTICE BUSINESS SYSTEMS TECHNICIAN 04/28/17 Sandi Alfaro APNP [address] [place] [address] PCP - Med Group - [facility] Attributed Provider 03/02/15 03/01/22 Cheryl Huston, roof mechanic (Ambulatory) REGISTERED NURSE 03/23/19 documented as of this encounter
--- OUTSIDE RECORDS SUMMARY | 2024-06-13 13:37 | XMS_ITS | Patient Health Record ---
Author Organization [facility] Address [address] [place], [place] [id number] Care Team Providers Care Bow Making Machine Operator Name Role Phone PIETER WALSH Unavailable [phone] Sandi Alfaro Unavailable Unavailable Allergies No Known Allergies Reason For Referral No Information Medications Medication SIG (Take, Route, Frequency, Duration) Notes Start Date End Date Status betamethasone 0.5 MG/ML / clotrimazole 10 MG/ML Topical Cream CUTANEOUS betamethasone 0.5 MG/ML / clotrimazole 10 MG/ML Topical CreamOriginal Medicationbetamethasone 0.5 MG/ML / clotrimazole 10 MG/ML Topical Cream *Reorder from [employer] for eRx and Interaction Alerts* 7 Active betamethasone 0.5 MG/ML / clotrimazole 10 MG/ML Topical Cream [Lotrisone] CUTANEOUS betamethasone 0.5 MG/ML / clotrimazole 10 MG/ML Topical Cream [Lotrisone]Original Medicationbetamethasone 0.5 MG/ML / clotrimazole 10 MG/ML Topical Cream [Lotrisone] *Reorder from [employer] for eRx and Interacti 7 Active Augmented betamethasone 0.5 MG/ML Topical Cream CUTANEOUS Augmented betamethasone 0.5 MG/ML Topical CreamOriginal MedicationAugmented betamethasone 0.5 MG/ML Topical Cream *Reorder from [employer] for eRx and Interaction Alerts* 7 Active clobetasol propionate 0.0005 MG/MG Topical Ointment [Temovate] CUTANEOUS clobetasol propionate 0.0005 MG/MG Topical Ointment [Temovate]Original Medicationclobetasol propionate 0.0005 MG/MG Topical Ointment [Temovate] *Reorder from [facility] for eRx and Interaction Alerts* 7 Active clotrimazole 10 MG/ML Topical Cream CUTANEOUS clotrimazole 10 MG/ML Topical CreamOriginal Medicationclotrimazole 10 MG/ML Topical Cream *Reorder from [facility] for eRx and Interaction Alerts* 7 Active Immunizations Vaccine Route Administration Date Status Comme nts Influenza, live, intranasal Unknown 01/29/2023 Administ ered Encounters Encounter Location Date Provider Diagnosis [facility] [address] [place] [id number] 08/24/2023 PIETER SNOOK Tinea unguium B35.1 ; Pain in right toe(s) M79.674 ; Pain in left toe(s) M79.675 ; Atherosclerosis of skok[place] arteries of extremities with intermittent claudication, bilateral legs I70.213 and Type 2 diabetes mellitus with other circulatory complications E11.59 [facility] [address] [place] [id number] 09/14/2023 PIETER SNOOK Nondisplaced unspeci fied fracture of right lesser toe(s), subsequent encounter for fracture with routine healing S92.504D and Pain in left toe(s) M79.675 [facility] [address] [place] [id number] 11/09/2023 PIETER SNOOK Tinea unguium B35.1 ; Pain in right toe(s) M79.674 ; Pain in left toe(s) M79.675 ; Atherosclerosis of [place] arteries of extremities with intermittent claudication, bilateral legs I70.213 and Type 2 diabetes mellitus with other circulatory complications E11.59 [facility] [address] [place] [id number] 01/25/2024 PIETER SNOOK Tinea unguium B35.1 ; Pain in right toe(s) M79.674 ; Pain in left toe(s) M79.675 ; Atherosclerosis of [place] arteries of extremities with intermittent claudication, bilateral legs I70.213 and Type 2 diabetes mellitus with other circulatory complications E11.59 [facility] [place] [address] [place] [id number] 08/31/2023 PIETERKELLEY BRITOOOK Nondisplaced unspeci fied fracture of unspecified lesser toe(s), initial encounter for closed fracture S92.506A and Pain in left foot M79.672 [facility] [place] [address] [place] [id number] 03/28/2024 PIETER OOK Tinea unguium B35.1 ; Pain in right toe(s) M79.674 ; Pain in left toe(s) M79.675 ; Atherosclerosis of sk[place]om[place] arteries of extremities with intermittent claudication, bilateral legs I70.213 and Type 2 diabetes mellitus with other circulatory complications E11.59 Assessments Encounter Date Diagnosis (ICD Code) Assessment Notes Treatment Notes Treatment Clinical Notes Section Notes 08/24/2023 Tinea unguium (ICD-10 - B35.1) NAIL [...] in left toe(s) (ICD-10 - M79.675) 11/09/2023 Pain in left toe(s) (ICD-10 - M79.675) 08/24/2023 Atherosclerosis of sk[place]om[place] arteries of extremities with intermittent claudication, bilateral legs (ICD-10 - I70.213) 01/25/2024 Pain in left toe(s) (ICD-10 - M79.675) 03/28/2024 Atherosclerosis of skokom[place] arteries of extremities with intermittent claudication, bilateral legs (ICD-10 - I70.213) 01/25/2024 Atherosclerosis of skokomish arteries of extremities with intermittent claudication, bilateral [...] the Amputation Prevention Guide. 11/09/2023 Atherosclerosis of skokom[place] arteries of extremities with intermittent claudication, bilateral [...] as well as the Amputation Prevention Guide. 09/14/2023 Other Fracture Resolved The fracture has resolved. I advised the patient to continue to monitor this area for pain or swelling. I also advised the patient to avoid bare feet or any high impact activities until it is done healing. The patient understands to contact the office if any signs of symptoms return 08/31/2023 Other Fracture Care: I discussed the nature and etiology of the injury to the patient and answered all questions. I discussed rest, immobilization, and time frame for healing. I explained that lack of compliance can lead to delayed healing or nonunion. Continue surgical shoe Plan Of Treatment Next Appt Details Provider Name:PIETER WALSH, 08:10:00 AM, [address], [place], [place], [phone], Insurance Providers Payer Name Payer Address Payer Phone Subscriber Number Group Number Insured Name Patient Relationship to Insured Coverage Start Date Coverage End Date Medicare Part B [place] [address] [place] [phone] [id number] KLAUDIA HALEY Self - patient is the insured
--- OUTSIDE RECORDS SUMMARY | 2024-06-13 13:37 | XMS_ITS ---
Author Organization [facility] Address [address] [place], [place] [id number] Care Team Providers Care Fisher Mussel Name Role Phone PIETER WALSH Unavailable [phone] Sandi Alfaro Unavailable Unavailable Allergies No Known [...] clotrimazole 10 MG/ML Topical Cream *Reorder from [facility] for eRx and Interaction Alerts* 7 Active betamethasone 0.5 MG/ML / clotrimazole 10 MG/ML Topical Cream [Lotrisone] CUTANEOUS betamethasone 0.5 MG/ML / clotrimazole 10 MG/ML Topical Cream [Lotrisone]Original Medicationbetamethasone 0.5 MG/ML / clotrimazole 10 MG/ML Topical Cream [Lotrisone] *Reorder from [facility] for eRx and Interacti 7 Active Augmented betamethasone 0.5 MG/ML Topical Cream CUTANEOUS Augmented betamethasone 0.5 MG/ML Topical CreamOriginal MedicationAugmented betamethasone 0.5 MG/ML Topical Cream *Reorder from [facility] for eRx and Interaction Alerts* 7 Active clobetasol propionate 0.0005 MG/MG Topical Ointment [Temovate] CUTANEOUS clobetasol propionate 0.0005 MG/MG Topical Ointment [Temovate]Original Medicationclobetasol propionate 0.0005 MG/MG Topical Ointment [Temovate] *Reorder from [facility] for eRx and Interaction Alerts* 7 Active clotrimazole 10 MG/ML Topical Cream CUTANEOUS clotrimazole 10 MG/ML Topical CreamOriginal Medicationclotrimazole 10 MG/ML Topical Cream *Reorder from [facility] for eRx and Interaction Alerts* 7 Active Encounters Encounter Location Date Provider Diagnosis [facility] [place] [address] [place], [place] [id number] 03/28/2024 PIETER SNOOK Tinea unguium B35.1 ; Pain in right toe(s) M79.674 ; Pain in left toe(s) M79.675 ; Atherosclerosis of [place] arteries of extremities with intermittent claudication, bilateral [...] toe(s) (ICD-10 - M79.675) 03/28/2024 Atherosclerosis of [place] arteries of extremities with intermittent claudication, bilateral [...] problems develop. Provider Name:PIETER WALSH, 08:10:00 AM, [address], [address], [id number], Progress Notes * SUDHASARA BACAITH BDOB:[birth year] (63 yo M)Acc No.[id number]:03/28/2024 Patient: KLAUDIA DUONG Provider: Kristal Walsh DPM :1960 A ge:63 Y S ex:Male Date:03/28/2024 Address:[address] [place] [address] [id number] Subjective: * Chief Complaints: * Mundo gonzales [...] betamethasone 0.5 MG/ML Topical Cream *Reorder from [facility] for eRx and Interaction Alerts*betamethasone 0.5 MG/ML / clotrimazole 10 MG/ML Topical Cream CUTANEOUS , Notes to Pharmacist: betamethasone 0.5 MG/ML / clotrimazole 10 MG/ML Topical CreamOriginal Medicationbetamethasone 0.5 MG/ML / clotrimazole 10 MG/ML Topical Cream *Reorder from [facility] for eRx and Interaction Alerts*betamethasone 0.5 MG/ML / clotrimazole 10 MG/ML Topical Cream [Lotrisone] CUTANEOUS , Notes to Pharmacist: betamethasone 0.5 MG/ML / clotrimazole 10 MG/ML Topical Cream [Lotrisone]Original Medicationbetamethasone 0.5 MG/ML / clotrimazole 10 MG/ML Topical Cream [Lotrisone] *Reorder from [facility] for eRx and Interacticlobetasol propionate 0.0005 MG/MG Topical Ointment [Temovate] CUTANEOUS , Notes to Pharmacist: clobetasol propionate 0.0005 MG/MG Topical Ointment [Temovate]Original Medicationclobetasol propionate 0.0005 MG/MG Topical Ointment [Temovate] *Reorder from [facility] for eRx and Interaction Alerts*clotrimazole 10 MG/ML Topical Cream CUTANEOUS , Notes to Pharmacist: clotrimazole 10 MG/ML Topical CreamOriginal Medicationclotrimazole 10 MG/ML Topical Cream *Reorder from [facility] for eRx and Interaction Alerts*Medication List reviewed and reconciled with the patientTaking Augmented betamethasone 0.5 MG/ML Topical Cream CUTANEOUS , Notes to Pharmacist: Augmented betamethasone 0.5 MG/ML Topical CreamOriginal MedicationAugmented betamethasone 0.5 MG/ML Topical Cream *Reorder from [facility] for eRx and Interaction Alerts*Taking betamethasone 0.5 MG/ML / clotrimazole 10 MG/ML Topical Cream CUTANEOUS , Notes to Pharmacist: betamethasone 0.5 MG/ML / clotrimazole 10 MG/ML Topical CreamOriginal Medicationbetamethasone 0.5 MG/ML / clotrimazole 10 MG/ML Topical Cream *Reorder from [facility] for eRx and Interaction Alerts*Taking betamethasone 0.5 MG/ML / clotrimazole 10 MG/ML Topical Cream [Lotrisone] CUTANEOUS , Notes to Pharmacist: betamethasone 0.5 MG/ML / clotrimazole 10 MG/ML Topical Cream [Lotrisone]Original Medicationbetamethasone 0.5 MG/ML / clotrimazole 10 MG/ML Topical Cream [Lotrisone] *Reorder from [facility] for eRx and InteractiTaking clobetasol propionate 0.0005 MG/MG Topical Ointment [Temovate] CUTANEOUS , Notes to Pharmacist: clobetasol propionate 0.0005 MG/MG Topical Ointment [Temovate]Original Medicationclobetasol propionate 0.0005 MG/MG Topical Ointment [Temovate] *Reorder from [facility] for eRx and Interaction Alerts*Taking clotrimazole 10 MG/ML Topical Cream CUTANEOUS , Notes to Pharmacist: clotrimazole 10 MG/ML Topical CreamOriginal Medicationclotrimazole 10 MG/ML Topical Cream *Reorder from [facility] for eRx and Interaction Alerts*Medication List [...] - M79.675 4 . A therosclerosis of [place]ree arteries of extremities with intermittent claudication, bilateral [...] Information: * Visit Code: * Procedure Codes: 10412 DEBRIDE NAIL, 6 OR MORE. Modifiers: Q8 * CRUSHER OPERATOR Sign off status: Completed true * Provider: Kristal Walsh DPM Date: 0 03/28/2024 Generated for Michelle chi/Danielle/Nimesh on: 0 06/13/2024 [...]
--- OUTSIDE RECORDS SUMMARY | 2024-06-13 13:37 | XMS_ITS | Clinical Summary ---
Author Organization [facility] Address [address] [place] [address] Care Team Providers Care Racking Machine Operator Name Role Phone Sandi Alfaro ARMATURE WINDER HELPER REPAIR-ROUSTABOUT HAND Primary Care Provider Source Comments [facility],non-owned Affiliates and Associated Physician Practices is amultiple site organization consisting of ambulatory clinics and hospital sitesin [place], [place], [place] and [place]. This disclosure is being madepursuant to the Care Everywhere program and may not contain all information available regarding this patient. Last updated 17.[facility] Allergies No known active allergies Medications * Be aware that medications may not be up to date on this document. Alwaysverify current medications with the patient. pantoprazole EC (PROTONIX) 40 MG tablet Take 40 mg by mouth DAILY. 30 tablet 3 08/22/19 17 Active bumetanide (BUMEX) 2 MG tablet Take 4 mg by mouth DAILY. 08/21/19 17 Active metFORMIN (GLUCOPHAGE) 1000 MG tablet Take 1,000 mg by mouth 2 times daily with morning and evening meal. 08/21/19 17 Active amLODIPine (NORVASC) 10 MG tablet Take 10 mg by mouth DAILY. 08/20/19 17 Active docusate sodium (COLACE) 100 MG capsule Take 100 mg by mouth. 08/20/19 17 Active albuterol-iprat ropium (COMBIVENT RESPIMAT) 20-100 MCG/ACT inhaler Inhale 1 puff by mouth 4X/day. 08/20/19 17 Active aspirin (ASPIRIN) 81 MG chew tablet Take 81 mg by mouth DAILY. 08/20/19 17 Active clopidogrel (PLAVIX) 75 MG tablet Take 75 mg by mouth DAILY. 08/20/19 17 Active carvedilol (COREG) 3.125 MG tablet Take 6.25 mg by mouth 2 times daily with morning and evening meal. 08/20/19 17 Active buPROPion SR 12hr (WELLBUTRIN-SR) 100 MG tablet Take 150 mg by mouth. 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 Gender Identity Not on file Sexual Orientation [...] 60-74 years 1-dose series) 2019 COVID-19 VACCINE (1 - 2023-2 5 season) 2023 DEPRESSION SCREENING 03/02/2024 AAA SCREENING 2024 INFLUENZA VACCINE (Season Ended) 2024 HEPATITIS C SCREENING Completed 05/26/2018 HIV SCREENING Completed 05/26/2018 HEPATITIS B VACCINE Aged Out No longe r eligible based on patient's age to complete this topic HIB VACCINE Aged Out No longer eligi ble based on patient's age to complete this topic HPV VACCINE Aged Out No longer eligi ble based on patient's age to complete this topic MENINGOCOCCAL (Group B) VACC INE SHARED DECISION-MAKING Aged Out No longer eligibl e based on patient's age to complete this topic MENINGOCOCCAL GROUPS A/C/Y/W VACCINE Aged Out No longer eligible b ased on patient's age to complete this topic [...] [facility] Comment: Neither HIV-1 p24 Antigen nor HIV-1/HIV-2 Antibodies are detected. Blood BLOOD SPECIMEN / Unknown Venipuncture / Unknown 05/26/2018 4:21 PM CDT 05/26/2018 4:26 PM CDT Jim Ann MD LAB - HEMATOLOGY ORDERABLES F inal Result Performing Organization Address City/State/[facility] Co de Phone Number [address] [phone] * HEPATITIS C AB SCREEN RFLX NAAT QUANT (05/26/2018 4:21 PM CDT) Hepatitis C Antibody Non-react kendell Non-reac tive 05/26/2018 5:13 PM CDT [facility] Comment: Hepatitis C Antibody screen indicates [...] CDT Jim Ann MD LAB - CHEMISTRY ORDERABLES Fi nal Result [place] [id number] [address] [phone] from Last 3 Months or Most Recently Relevant to Health Maintenance Insurance MEDICARE MEDICAID - OUT OF STATE MEDICARE MEDICAID - [place] Advance Directives * Full Code (Latest Code Status on File) Date Activated Date Inactivated Comments 05/26/2018 2:01 PM 05/28/2018 11:56 AM Care Teams Racking Machine Operator Relationship Specialty Start Date End Date Sandi Alfaro, ARMATURE WINDER HELPER REPAIR-ROUSTABOUT HAND [address] [place] [id number] PCP - General 08/27/21
--- OUTSIDE RECORDS SUMMARY | 2024-06-13 13:37 | XMS_ITS | Encounter Summary ---
Author Organization [facility] Address [address] [place] [address] Care Team Providers Care Heart Coordinator Name Role Phone Sandi Alfaro Primary Care Provider [phone] Sandi Alfaro Unavailable [phone] Cheryl Huston RN Unavailable Unavailable Encounter Details Date Type Department Care Team (Late st Contact Info) Description 05/13/2021 [employer] Message Enc [facility] Multispecialty Care - [facility] [address] [place] [address] Eliza, [facility] Provider CPAP Social History Tobacco Use Types Packs/Day Years Used Date Smoking Tobacco: Every Day Cigarettes 0.3 40 Smokeless Tobacco: Never Comments:want to quit but gary s alot of stress right [id number] smoking about 3-4 cigaretts a day Alcohol Use Standard Drinks/Week Comments Yes 0 (1 standard drink = 0.6 oz pur e alcohol) very rarely 6 beers/year PHQ-2 Answer Date Recorded PHQ-2 Score - If the patient scores above 3, please move on to questions 3-9 4 01/23/2021 Sex and Gender Information Value Date Recorded Sex Assigned at Male 03/31/2024 8:58 AM HOB MILL OPERATOR Legal Sex Male 8:01 PM CDT Gender [...] Description 06/21/2024 8:40 AM CDT Office Visit [facility] Family & Internal Medicine [address] [address] Sandi Alfaro APNP [address] [place] [address] documented as of this encounter Visit Diagnoses Not on filedocumented in this encounter Additional Health Concerns Infection Onset Date Last Indicated Resolved Time COVID-19 Rule Out 05/12/2023 05/12/2023 05/13/2023 12:01 AM CDT Influenza - Seasonal 05/14/2023 05/14/2023 024 12:32 AM CDT Assessment Noted Time PHQ-9 Depression Total Score: 7 01/24/20 21 1:37 PM HOB MILL OPERATOR documented as of this encounter Care Teams Heart Coordinator Relationship Specialty Start Date End Date Sandi Alfaro APNP Family & Internal Medicine [address] [address] PCP - General ADVANCED PRACTICE FARM ADVISER 04/28/17 Sandi Alfaro APNP [address] [place] [address] PCP - Med Group - [facility] Attributed Provider 03/02/15 03/01/22 Cheryl Huston, director electronics (Ambulatory) REGISTERED NURSE 03/23/19 documented as of this encounter
[2024-06-13 13:52] LABS: INR 1.2; Prothrombin Time 15.4 Seconds (11.1-14.7)
[2024-06-13 13:53] LABS: Partial Thromboplastin Time 31.3 Seconds (22.3-36.8)
[2024-06-13] MEDS: ONDANSETRON INJ 4 MG/2 ML VIAL IV PUSH (13:54)
--- OUTSIDE RECORDS SUMMARY | 2024-06-13 14:44 | XMS_ITS | Encounter Summary ---
Author Organization [facility] Address [address] [place] [address] Care Team Providers Care Hospital Carrier Name Role Phone Sandi Alfaro Primary Care Provider [phone] Sandi Alfaro Unavailable [phone] Cheryl Huston RN Unavailable Unavailable Encounter Details Date Type Department Care Team (Late st Contact Info) Description 05/13/2021 [employer] Message Enc [facility] Multispecialty Care - [facility] [address] [place] [address] Eliza, [facility] Provider CPAP Social History Tobacco Use Types Packs/Day Years Used Date Smoking Tobacco: Every Day Cigarettes 0.3 40 Smokeless Tobacco: Never Comments:want to quit but gary s alot of stress right [id number] smoking about 3-4 cigaretts a day Alcohol Use Standard Drinks/Week Comments Yes 0 (1 standard drink = 0.6 oz pur e alcohol) very rarely 6 beers/year PHQ-2 Answer Date Recorded PHQ-2 Score - If the patient scores above 3, please move on to questions 3-9 4 01/23/2021 Sex and Gender Information Value Date Recorded Sex Assigned at Male 03/31/2024 8:58 AM HOTEL SUPPLIES SALESPERSON Legal Sex Male 8:01 PM CDT Gender [...] Description 06/21/2024 8:40 AM CDT Office Visit [facility] Family & Internal Medicine [address] [address] Sandi Alfaro APNP [address] [place] [address] documented as of this encounter Visit Diagnoses Not on filedocumented in this encounter Additional Health Concerns Infection Onset Date Last Indicated Resolved Time COVID-19 Rule Out 05/12/2023 05/12/2023 05/13/2023 12:01 AM CDT Influenza - Seasonal 05/14/2023 05/14/2023 024 12:32 AM CDT Assessment Noted Time PHQ-9 Depression Total Score: 7 01/24/20 21 1:37 PM HOTEL SUPPLIES SALESPERSON documented as of this encounter Care Teams Hospital Carrier Relationship Specialty Start Date End Date Sandi Alfaro APNP Family & Internal Medicine [address] [address] PCP - General ADVANCED PRACTICE OPERATIONS RESEARCH SCIENTIST 04/28/17 Sandi Alfaro APNP [address] [place] [address] PCP - Med Group - [facility] Attributed Provider 03/02/15 03/01/22 Cheryl Huston, culinary manager (Ambulatory) REGISTERED NURSE 03/23/19 documented as of this encounter
--- OUTSIDE RECORDS SUMMARY | 2024-06-13 14:44 | XMS_ITS | Encounter Summary ---
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 Legal Sex Male 8:01 PM CDT Gender [...] Description 06/21/2024 8:40 AM CDT Office Visit [facility] Medical [facility] Family & Internal Medicine [address] [address] Sandi Alfaro APNP [address] [place] [address] documented as of this encounter Visit Diagnoses Not on filedocumented in this encounter Additional Health Concerns Infection Onset Date Last Indicated Resolved Time COVID-19 Rule Out 05/12/2023 05/12/2023 05/13/2023 12:01 AM CDT Influenza - Seasonal 05/14/2023 05/14/2023 024 12:32 AM CDT Assessment Noted Time PHQ-9 Depression Total Score: 13 023 10:48 AM CDT documented as of this encounter Care Teams Door To Door Lead Generation Relationship Specialty Start Date End Date Sandi Alfaro APNP Family & Internal Medicine [address] [address] PCP - General ADVANCED PRACTICE WARDROBE MISTRESS 04/28/17 Cheryl Huston, research geneticist (Ambulatory) REGISTERED NURSE 03/23/19 documented as of this encounter
--- OUTSIDE RECORDS SUMMARY | 2024-06-13 14:44 | XMS_ITS | Clinical Summary ---
Author Organization [facility] Address [address] [place] [address] Care Team Providers Care Scheme Technician Name Role Phone Sandi Alfaro BLUE PRINT CONTROL CLERK-DIESEL PILE HAMMER OPERATOR Primary Care Provider Source Comments [facility],non-owned Affiliates and Associated Physician Practices is amultiple site organization consisting of ambulatory clinics and hospital sitesin [place], [place], [place] and [place]. This disclosure is being madepursuant to the Care Everywhere program and may not contain all information available regarding this patient. 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 Blood BLOOD SPECIMEN / Unknown Venipuncture / Unknown 05/26/2018 4:21 PM CDT 05/26/2018 4:26 PM CDT Jim Ann MD LAB - HEMATOLOGY ORDERABLES F inal Result Performing Organization Address City/State[facility] Co de Phone Number [address] [phone] * HEPATITIS C AB SCREEN RFLX NAAT QUANT (05/26/2018 4:21 PM CDT) Hepatitis C Antibody Non-react kendell Non-reac tive 05/26/2018 5:13 PM CDT [facility] Comment: Hepatitis C Antibody screen [...] LAB - CHEMISTRY ORDERABLES Fi nal Result [place] [id number] [address] [phone] from Last 3 Months or Most Recently Relevant to Health Maintenance Insurance MEDICARE MEDICAID - OUT OF STATE MEDICARE MEDICAID - [place] Advance Directives * Full Code (Latest Code Status on File) Date Activated Date Inactivated Comments 05/26/2018 2:01 PM 05/28/2018 11:56 AM Care Teams Scheme Technician Relationship Specialty Start Date End Date Sandi Alfaro, BLUE PRINT CONTROL CLERK-DIESEL PILE HAMMER OPERATOR [address] [place] [address] PCP - General 08/27/21
--- OUTSIDE RECORDS SUMMARY | 2024-06-13 14:44 | XMS_ITS | Clinical Summary ---
Author Organization [facility] Address [facility] [place] [address] Care Team Providers Care Log Manager Name Role Phone Sandi Alfaro Primary Care Provider [phone] Cheryl Huston RN Unavailable Unavailable Allergies No [...] complication, without long-term current use of insulin ([facility]/HCC HHS/HCC) USE 1 STRIP BY OTHER ROUTE [...] congestive heart failure, unspecified heart failure type ([facility]),Primary hypertension TAKE 1 TABLET BY MOUTH EVERY [...] complication, without long-term current use of insulin ([facility]) TAKE 1 TABLET BY MOUTH EVERY DAY [...] 03/31/2024 Polyneuropathy associated with underlying diseas e ([facility]) 12/16/2023 Morbid (severe) obesity due to excess [...] heart failure with p reserved ejection fraction ([facility]) 11/12/2018 Arthralgia of left hand 11/02/2018 Enchondroma of bone of hand, left 11/02/2018 Carpal tunnel syndrome on left 08/26/2018 Cryptogenic stroke ([facility]) 07/06/2018 Skin lesion of right arm 06/28/2018 Weakness 05/26/2018 Status post placement of implantable loop record er 10/13/2017 Overview (01/13/2018): Overview: Medtronic Reveal Loop Recorder. Dx; Cryptogenic Stroke. DOI 10/12/[address] Willoughby. [employer] remote monitoring. TIA (transient ischemic attack) 10/06/2017 Mild emphysema ([facility]) 08/28/2017 Hepatic steatosis 08/28/2017 Memory loss 05/18/2017 Chest pain 04/30/2017 S/P coronary artery stent placement 12/17/2016 Hemorrhoids 10/03/2016 Hearing loss 08/01/2016 Decreased hearing 07/17/2016 Chronic nausea 03/27/2016 Diabetic foot ([facility]) 03/10/2016 Abdominal wall bulge 03/10/2016 CHF (congestive heart failure) ([facility]) 01/14/2016 Peripheral edema 12/19/2015 Tinnitus 11/08/2015 History of kidney stones 10/03/2015 Insomnia 05/07/2015 Chronic cough 03/20/2015 Hypertensive heart disease w ith congestive heart failure ([facility]) 02/20/2015 Overview (01/13/2018): Overview: Hypertensive heart disease with diastolic heart failure Coronary artery disease of n ative artery of [place] heart with stable angina pectoris 02/20/2015 Overview (01/13/2018): Overview: Coronary artery disease involving [place] coronary artery of [place] heart with other form of angina pectoris CVA, old, hemiparesis ([facility]) 02/21/20 15 Overview (01/13/2018): Overview: CVA, old, hemiparesis Dyslipidemia associated with type 2 diabetes mellitus ([facility]) 02/20/2015 Overview (01/13/2018): Overview: DM (diabetes mellitus) Overview: DM type 2 with diabetic dyslipidemia Mixed diabetic hyperlipidemi a associated with type 2 diabetes mellitus ([facility]) 02/20/2015 Overview (05/17/2021): DM type 2 with [...] Overview: HTN (hypertension), benign Cerebrovascular accident (CVA) ([facility]) 08/23/2013 Hyperlipidemia 08/23/2013 Resolved Problems Problem Noted Date Diagnosed Date Resolved Date Left nephrolithiasis 10/07/2017 018 Encounter for screening for lung cancer 04/09/2017 06/28/2018 BMI 45.0-49.9, adult 10/03/2016 023 Morbid obesity 08/13/2016 05/15/2022 Encounter for preventive health examination 08/23/2013 06/28/2018 Encounters Date Type Department Care Team Description 05/31/2024 Telephone [facility] Family & Internal Medicine [address] [address] Sandi Alfaro APNP Medication Request 05/05/2024 Scan [facility] Scanned, [facility] 05/03/2024 Scan [facility] Scanned, Doc [facility] Automobile Rental Representative Report (SCAN)* 05/02/2024 Scan [facility] INFO [...] Group Lab (SCAN); CT (SCAN) 04/11/2024 Telephone [facility] Family & Internal [address] [address] Sandi Alfaro APNP Results 03/31/2024 8:40 AM CONSTRUCTION MATERIALS TESTER Office Visit [facility] Family & Internal [address] [address] Sandi Alfaro APNP ER F/U 03/31/2024 Travel 03/29/2024 Scan [facility]VCS Scanned, Doc [facility] Image (SCAN) 03/28/2024 Scan [facility] Scanned, Doc [facility] 03/23/2024 Scan [facility] Scanned, Doc [facility] Lab (SCAN) 03/23/2024 Scan [facility] Scanned, Doc [facility] Lab (SCAN) 03/22/2024 Telephone [facility] Internal [address] [address] Sandi Alfaro APNP Medication Request; Advice 03/18/2024 [...] pur e alcohol) very rarely 6 beers/year [facility] Utilities Answer Date Recorded In the past 12 months has [employer], [employer], or water [email or web address] threatened to shut off services in your [...] any clubs o r organizations such as gnosticist groups, unions, fraternal or athletic groups, or [...] Questionnaire-2 Score 0 03/31/2024 [facility] - [...] place to sleep or slept in a alf (including now)? No 05/12/2023 Sex and Gender Information Value Date Recorded Sex Assigned at Male 03/31/2024 8:58 AM CONSTRUCTION MATERIALS TESTER Legal Sex Male 8:01 PM CDT Gender Identity Not on file Sexual Orientation Not on file Last Filed Vital Signs Vital Sign Reading Time Taken Comments Blood Pressure 128/72 03/31/2024 8:56 AM CONSTRUCTION MATERIALS TESTER Pulse 81 03/31/2024 8:56 AM CONSTRUCTION MATERIALS TESTER Temperature 36.3 C (97.4 F) 03/31/2024 8:56 AM CONSTRUCTION MATERIALS TESTER Respiratory Rate 18 03/31/2024 8:56 AM CONSTRUCTION MATERIALS TESTER Oxygen Saturation 98% 03/31/2024 8:56 AM CONSTRUCTION MATERIALS TESTER Inhaled Oxygen Concentration - - Weight 139 kg (306 lb 6.4 oz) 03/31/2024 8:56 AM CONSTRUCTION MATERIALS TESTER Height 182.9 cm (6') 03/31/2024 8:56 AM CONSTRUCTION MATERIALS TESTER Body Mass Index 41.56 03/31/2024 8:56 AM CONSTRUCTION MATERIALS TESTER Plan of Treatment Upcoming Encounters Date Type Department Care Team (Late st Contact Info) Description 06/21/2024 8:40 AM CDT Office Visit [facility] Family & Internal Medicine [address] [id number] [place] [address] Sandi Alfaro APNP [address] [place] [address] Health Maintenance Due Date Last Done Comments [...] Vaccine: 50+ Years Completed 06/28/2021 PHQ-2 (Physician [place]) Completed 03/31/2024 Meningococcal B Vaccine Aged Out No l onger eligible based on patient's age to complete this topic Meningococcal Vaccine Aged Out No shyam jose eligible based on patient's age to complete this topic RSV Immunizations Under 20 Months Aged Out No longer eligible based on patient's age to complete this topic Procedures Procedure Name Priority Date/Time Associated Diagnosis Comments 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 05/03/2024 OUTSIDE LAB (SCAN ORDER) Routine 05/01/2024 OUTSIDE LAB (SCAN ORDER) 05/01/2024 IMAGE GENERIC 05/01/2024 DIABETIC RETINOPATHY EXAM (NEGATIVE)(SCAN ORDER) Routine 04/27/2024 CT GENERIC 04/14/2024 OUTSIDE LAB (SCAN ORDER) 04/14/2024 OUTSIDE LAB (SCAN ORDER) 04/14/2024 COLLECTION VENOUS BLOOD VENIPUNCTURE Routine 03/31/2024 9:56 AM CONSTRUCTION MATERIALS TESTER Body mass index (BMI) 40.0-44.9, adult ([facility]/HCC) Mixed diabetic hyperlipidemia associated with type 2 diabetes mellitus ([facility]/HCC [facility]/HCC) Prostate cancer screening Primary hypertension PROSTATE SPECIFIC ANTIGEN,SCREENING Routine 03/31/2024 9:55 AM CONSTRUCTION MATERIALS TESTER Prostate cancer screening CBC W/DIFF AUTOMATED Routine 03/31/2024 9:55 AM CONSTRUCTION MATERIALS TESTER Thrombocytopenia COMPREHENSIVE METABOLIC PANEL Routine 03/31/2024 9:55 AM CONSTRUCTION MATERIALS TESTER Body mass index (BMI) 40.0-44.9, adult (CMS/HCC) Mixed diabetic hyperlipidemia associated with type 2 diabetes mellitus (CMS/HCC HHS/HCC) Primary hypertension MG/PCCL UDS W CONF Routine 03/31/2024 8: 59 AM CONSTRUCTION MATERIALS TESTER Long-term use of high-risk medication IMAGE GENERIC [...] Recently Relevant to Health Maintenance Results * 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 (05/03/2024) Anatomical Region Laterality Modality Other 05/03/[address] [facility] Group Scanned SCANNING Final Resu lt * OUTSIDE LAB (05/01/2024) Only the most recent of10 resultswithin the time period is included. 05/01/2024 Result [facility] Scanned SCANNING Final Resu lt Performing Organization Address [facility] de Phone Number [facility] ONBASE * IMAGE GENERIC (05/01/2024) Only the most recent of3 resultswithin the time period is included. Anatomical Region Laterality Modality Other 05/01/2024 Result [facility] Scanned SCANNING Final Resu lt * DIABETIC RETINOPATHY EXAM (NEGATIVE) (04/27/2024) Result [facility] Scanned SCANNING Final Resu lt Performing Organization Address [facility] de Phone Number [facility] ONBASE * CT GENERIC (04/14/2024) Only the most recent of3 resultswithin the time period is included. Anatomical Region Laterality Modality Other 04/14/2024 Result [facility] Scanned SCANNING Final Resu lt * PROSTATE SPECIFIC ANTIGEN,SCREENING (03/31/2024 9:55 AM CONSTRUCTION MATERIALS TESTER) PSA 2.27 <4.00 NG/ML 03/31/2024 3:04 PM CONSTRUCTION MATERIALS TESTER [facility] Comment: ASSAY PERFORMED BY [employer]MMUNOASSAY METHODOLOGY USING [employer]EMENS DIMENSION REAGENT. PATIENT RESULTS DETERMINED BY ASSAYS FROM DIFFERENT MANUFACTURERS AND/OR BY DIFFERENT METHODS MAY NOT BE COMPARABLE. 03/31/2024 9:55 AM CONSTRUCTION MATERIALS TESTER Result [facility] Sandi LYNCH LABORATORY Final Resul t -[facility] [address] [place] [address], * (ABNORMAL) COMPREHENSIVE METABOLIC PANEL (03/31/2024 9:55 AM CONSTRUCTION MATERIALS TESTER) [facility] SODIUM S/P/B 139 136 - 145 MMOL/L 03/31/2024 3:29 PM [facility] POTASSIUM S/P/B 4.2 3.5 - 5.1 MMOL/L 03/31/2024 3:29 PM [facility] CHLORIDE S/P/B 103 98 - 107 MMOL/L 03/31/2024 3:29 PM [facility] CO2 25.2 21 - 32 MMOL/L 03/31/2024 3:29 PM [facility] GLUCOSE 127(H) 70 - 99 MG/DL 03/31/2024 3:29 PM [facility] BUN 12 7 - 18 MG/DL 03/31/2024 3:29 PM [facility] CREATININE S/P/B 1.11 0.70 - 1.30 MG/DL 03/31/2024 3:29 PM [facility] CALCIUM S/P/B 9.1 8.4 - 10.5 MG/DL 03/31/2024 3:29 PM [facility] BILIRUBIN TOTAL S/P/B 0.6 0.2 - 1.0 MG/DL 03/31/2024 3:29 PM [facility] ALKALINE PHOSPHATASE S/P/B 76 45 - 115 U/L 03/31/2024 3:29 PM [facility] AST 28 15 - 37 U/L 03/31/2024 3:29 PM [facility] ALT 46 16 - 63 U/L 03/31/2024 3:29 PM [facility] TOTAL PROTEIN S/P/B 6.9 6.4 - 8.2 G/DL 03/31/2024 3:29 PM CONSTRUCTION MATERIALS TESTER [facility] ALBUMIN S/P/B 3.8 3.4 - 5.0 G/DL 03/31/2024 3:29 PM CONSTRUCTION MATERIALS TESTER [facility] ANION GAP 10.8 5 - 15 MMOL/L 03/31/2024 3:29 PM CONSTRUCTION MATERIALS TESTER [facility] Comment:REFERENCE RANGE NOT ESTABLISHED OSMOLALITY (CALC) 289 MOSM/KG 025 3:29 PM CONSTRUCTION MATERIALS TESTER [facility] Comment:REFERENCE RANGE NOT ESTABLISHED GFR ESTIMATE 74(L) >90 ML/MIN/1. 73 M2 03/31/2024 3:29 PM CONSTRUCTION MATERIALS TESTER [facility] GFR NOTES GFR REFERENCE S: 03/31/2024 3:29 PM CONSTRUCTION MATERIALS TESTER [facility] Comment: THE ESTIMATED GFR IS CALCULATED [...] FAILURE: <15 ml/min/1.73 m2 03/31/2024 9:55 AM CONSTRUCTION MATERIALS TESTER us Sandi LYNCH LABORATORY Final Resul t [facility] [address] [place] [address], * (ABNORMAL) CBC W/DIFF AUTOMATED (03/31/2024 9:55 AM CONSTRUCTION MATERIALS TESTER) WBC 7.37 4.00 - 10.80 x10'3/uL 03/31/2024 3:14 PM CONSTRUCTION MATERIALS TESTER [facility] RBC 4.34(L) 4.50 - 6.10 x10'6/uL 03/31/2024 3:14 PM [facility] HGB 13.2 13.0 - 18.0 G/DL 03/31/2024 3:14 PM [facility] HCT 38.9 37.0 - 52.0 % 03/31/2024 3:14 PM [facility] MCV 89.6 78.0 - 100.0 FL 03/31/2024 3:14 PM [facility] MCH 30.4 27.0 - 31.0 PG 03/31/2024 3:14 PM [facility] MCHC 33.9 33.0 - 36.0 G/DL 03/31/2024 3:14 PM [facility] RDW 14.0 11.5 - 14.5 % 03/31/2024 3:14 PM [facility] PLT 140(L) 150 - 350 x10'3/uL 03/31/2024 3:14 PM [facility] MPV 12.2(H) 7.4 - 10.4 FL 03/31/2024 3:14 PM [facility] DIFFERENTIAL TYPE AUTOMATED DIFFERENTIAL 03/31/2024 3:15 PM [facility] NEUTROPHILS % 73.8 % 03/31/2024 3:15 PM [facility] LYMPHOCYTES % 14.5 % 03/31/2024 3:15 PM [facility] MONOCYTES % 9.0 % 03/31/2024 3:15 PM [facility] EOSINOPHILS % 2.0 % 03/31/2024 3:15 PM [facility] BASOPHILS % 0.3 % 03/31/2024 3:15 PM [facility] IMMATURE GRANS % 0.4 % 03/31/2024 3:15 PM CONSTRUCTION MATERIALS TESTER [facility] ABS. NEUTROPHILS 5.44 1.60 - 8.30 x10'3/uL 03/31/2024 3:15 PM CONSTRUCTION MATERIALS TESTER [facility] ABS. LYMPHOCYTES 1.07 0.80 - 4.70 x10'3/uL 03/31/2024 3:15 PM CONSTRUCTION MATERIALS TESTER [facility] ABS. MONOCYTES 0.66 0.00 - 1.50 x10'3/uL 03/31/2024 3:15 PM CONSTRUCTION MATERIALS TESTER [facility] ABS. EOSINOPHILS 0.15 0.00 - 0.40 x10'3/uL 03/31/2024 3:15 PM CONSTRUCTION MATERIALS TESTER [facility] ABS. BASOPHILS 0.02 0.00 - 0.20 x10'3/uL 03/31/2024 3:15 PM CONSTRUCTION MATERIALS TESTER [facility] ABS. IMMATURE GRANULOCYTES 0.03 0.00 - 0.03 x10'3/uL 03/31/2024 3:15 PM CONSTRUCTION MATERIALS TESTER [facility] 03/31/2024 9:55 AM CONSTRUCTION MATERIALS TESTER Sandi LYNCH LABORATORY Final Resul t [facility] [address] [place] [address], * (ABNORMAL) MG/PCCL UDS W CONF (03/31/2024 8:59 AM CONSTRUCTION MATERIALS TESTER) RESULT SUMMARY [facility] Comment: Prescribed Prescribed Not Prescribed Consistent Inconsistent Inconsistent Hydrocodone Tramadol PRESCRIBED DRUG 1 (U) Hydrocodone [facility] PRESCRIBED DRUG 2 (U) Tramadol [facility] FENTANYL SCREEN (U) NEGATIVE <0.5 ng/mL [...] [facility] Comment: This drug testing is for medical treatment only. Analysis was performed as non-forensic testing and these results should be used only by healthcare providers to render diagnosis or treatment, or to monitor progress of medical conditions. LDT Notes: Confirmation tests were developed and their analytical performance characteristics have been determined by [employer]. It has not been cleared or approved by the FDA. This assay has been validated pursuant to the CLIA regulations and is used for clinical purposes. medMATCH(R) enables providers to identify if drug use is consistent or inconsistent with a corresponding prescribed medication(s) list. Healthcare Providers needing Interpretation assistance, please contact us at [phone] ( ) M-F, 8am to 10pm EST URINE SPECIMEN / Unknown 03/31/2024 8:59 AM CONSTRUCTION MATERIALS TESTER 03/31/2024 11:43 PM CONSTRUCTION MATERIALS TESTER Narrative Resulting Agency Comment Performing Organization Information: Site ID: [id number] Name: [facility] Address: [address] [place] [address] Director: Clif[place] Ca Site ID: [id number] Name: [facility] Address: [address] [place] [address] Director: Velvet Juarez MD Sandi LYNCH URINE ORDERABLES Final Resu lt Performing Organization Address [facility]/ZIP Co de Phone Number [facility] relocality [facility] [address] [place] [address], [facility] [place] [address] [place] [address] * OUTSIDE LAB COVID-19 (03/23/2024) Only the most recent of2 resultswithin the time period is included. CORONAVIRUS SARS COV 2 PCR (RESP) NOT DETECTED NOT DETECTED [facility] 03/23/2024 Result [facility] Scanned SCANNING Final Resu lt Performing Organization Address [facility] de Phone Number [facility] * OUTSIDE PT/INR (SCAN ORDER) (03/23/2024) Only the most recent of2 resultswithin the time period is included. 03/23/2024 [facility] Scanned SCANNING Final Resu lt * HEMOGLOBIN, GLYCOSYLATED (02/05/2024) HGB A1C 6.5 % [facility] 02/05/2024 Sandi LYNCH LABORATORY Final Resul t -[facility] [address] [place] [address], [place] * (ABNORMAL) LIPID PANEL (05/13/2023 6:00 AM CDT) CHOLESTEROL 87 <200 MG/DL 05/13/2023 7:18 AM CDT [facility] TRIGLYCERIDES 213(H) <150 MG/DL 05/13/2023 7:18 AM CDT [facility] HDL 24(L) >40.0 MG/DL 05/13/2023 7:18 AM CDT [facility] LDL (CALCULATED) 20 <100 MG/DL 05/13/2023 7:18 AM CDT [facility] NON HDL CHOLESTEROL 63 <130 MG/DL 05/13/2023 7:18 AM CDT [facility] CHOL/HDL RATIO 3.6 0.0 - 4.5 05/13/2023 7:18 AM CDT [facility] VLDL CALCULATION 43 5 - 55 MG/DL 05/13/2023 7:18 AM CDT [facility] LIPID INTERPRETATION 05/13/2023 7:18 AM CDT [facility] Comment: NIH CONCENSUS REPORT RECOMMENDATIONS: ADULT CHILD LOW RISK: CHOLESTEROL <200 <170 TRIGLYCERIDE <150 --- HDL >=60 --- LDL <100 <110 BORDERLINE: CHOLESTEROL 200-239 170-199 TRIGLYCERIDE 150-199 --- HDL 40-59 --- LDL 100-159 110-129 HIGH RISK: CHOLESTEROL >=240 >=200 TRIGLYCERIDE >=200 --- HDL <40 --- LDL >=160 >=130 05/13/2023 6:00 AM CDT us Ayanna Bellamy MD LABORATORY Final Re sult [facility] [address] [place] [address], * HEPATITIS C ANTIBODY W/RFX TO HCV [...] a test for HCV RNA (test code 62062) is suggested. For additional information please refer to http://education.[employer]/faq/AZR57v6 (This link is being provided for informational/ educational purposes only.) 06/28/2021 11:2 2 AM CDT 06/29/2021 10:18 AM CDT Sandi LYNCH LABORATORY Final Resul t [facility] [address] [place] [address] * CT CHEST WO CONT LOW DOSE [...] As above. Thank you for choosing the [facility]'s Lung Screening Program. Referred By: NICK HENDERSON [...] in the left lung base posteriorly. Implanted bus monitor device within the left chest subcutaneous [...] As above. Thank you for choosing the [facility] Lung Screening[facility]. 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
--- OUTSIDE RECORDS SUMMARY | 2024-06-13 14:44 | XMS_ITS | Referral Summary ---
Author Organization [place] [address] [address] [address] Care Team Providers Care Homemaker Companion Name Role Phone Sandi Alfaro Primary Care Provider + Encounters Date Type Department Care Team Description 05/16/2024 Orders Only [facility] Cardiology [address] [place] [address] [address] [place] [address] Julio Richardson MD 05/10/2024 Orders Only [facility] Cardiology [address] [place] [address] [address] [place] [address] Fernando Modi MD 04/22/2024 Results Follow-Up [address] [place] [address] Harini Mann RN Chest pain, unspecified type (Primary Dx); Cardiovascular stress test abnormal 04/21/2024 8:15 AM OPERATIONS SUPERVISOR CHEMICAL CLEANING Ancillary Procedure [facility] Cardiology [address] [place] [address] [address] [place] [phone] Coronary artery disease of [place] artery of [place] heart with stable angina pectoris 04/20/2024 11:15 AM OPERATIONS SUPERVISOR CHEMICAL CLEANING Ancillary Procedure [facility] Cardiology [address] [place] [address] [address] [place] [phone] Coronary artery disease of [place] artery of [place] heart with stable angina pectoris 04/11/2024 Telephone [facility] Cardiology [address] [place] [address] [address] [place] [address] Fernando Modi MD NM stress test instructions 04/04/2024 1:00 PM OPERATIONS SUPERVISOR CHEMICAL CLEANING Ancillary Procedure [facility] Cardiology [address] [place] [address] [place] [phone] Coronary artery disease of [place] artery of [place] heart with stable angina pectoris 03/29/2024 Telephone [place] [address] [place] [phone] Ifrah Gibson NP 03/28/2024 9:00 AM OPERATIONS SUPERVISOR CHEMICAL CLEANING Office Visit [address] [address] Ifrah Gibson NP Coronary artery disease of [place] artery of [place] heart with stable angina pectoris (Primary Dx); CVA, old, hemiparesis (HCC); Hypertension associated with diabetes (HCC); Recently quit using tobacco 03/24/[address] [address] Fernando Modi MD Chest Pain [...] 24 hr tabletIndication s:Coronary artery disease of [place] artery of [place] heart with stable angina pectoris TAKE 2 [...] implantable loop record er 10/13/2017 Overview (10/13/2017): [employer] Reveal Loop Recorder. Dx; Cryptogenic Stroke. DOI 10/12/[address] Willoughby. [facility] remote monitoring. TIA (transient ischemic attack) 10/06/2017 S/P coronary artery stent placement 12/17/2016 Morbid obesity with BMI of 45.0-49.9, adult ([facility]) 08/13/2016 Mixed anxiety depressive disorder 05/01/2015 Overview (06/07/2016): Anxiety and depression Coronary artery disease of n ative artery of [place] heart with stable angina pectoris 02/20/2015 Overview (06/07/2016): Coronary artery disease involving [place] coronary artery of [place] heart with other form of angina pectoris CVA, old, hemiparesis 02/20/2015 Overview (06/07/2016): CVA, old, hemiparesis Mixed diabetic hyperlipidemi a associated with type 2 diabetes mellitus ([place]) 02/20/2015 Overview (06/07/2016): DM type 2 with [...] on file Legal Sex Male 3:15 AM OPERATIONS SUPERVISOR CHEMICAL CLEANING Gender Identity Male 09/03/2018 6:22 AM CDT Sexual Orientation Straight 09/03/2018 6: 22 AM CDT Last Filed Vital Signs Vital Sign Reading Time Taken Comments Blood Pressure 132/72 03/28/2024 9:10 AM OPERATIONS SUPERVISOR CHEMICAL CLEANING Pulse 82 01/18/2024 8:53 AM OPERATIONS SUPERVISOR CHEMICAL CLEANING Temperature - - Respiratory Rate - - Oxygen Saturation 96% 03/28/2024 9:10 AM OPERATIONS SUPERVISOR CHEMICAL CLEANING Inhaled Oxygen Concentration - - Weight 137.4 kg (303 lb) 03/28/2024 9:10 AM OPERATIONS SUPERVISOR CHEMICAL CLEANING Height 182.9 cm (6') 03/28/2024 9:10 AM OPERATIONS SUPERVISOR CHEMICAL CLEANING Body Mass Index 41.09 03/28/2024 9:10 AM OPERATIONS SUPERVISOR CHEMICAL CLEANING Plan of Treatment Not on file Procedures Procedure Name Priority Date/Time Associated Diagnosis Comments CARDIOLOGY DOCUMENT SCAN Routine 05/04/2024 10:59 AM OPERATIONS SUPERVISOR CHEMICAL CLEANING CARDIOLOGY DOCUMENT SCAN Routine 05/03/2024 10:55 AM OPERATIONS SUPERVISOR CHEMICAL CLEANING CARDIOLOGY DOCUMENT SCAN Routine 05/03/2024 8:33 AM OPERATIONS SUPERVISOR CHEMICAL CLEANING CARDIOLOGY DOCUMENT SCAN Routine 05/02/2024 10:52 AM OPERATIONS SUPERVISOR CHEMICAL CLEANING CARDIOLOGY DOCUMENT SCAN Routine 05/02/2024 10:10 AM OPERATIONS SUPERVISOR CHEMICAL CLEANING NM MPI SPECT (REST AND/OR STRESS) MULTIPLE STUDIES Schedule Routine, Read Routine (OP Routine) 04/20/2024 12:17 PM OPERATIONS SUPERVISOR CHEMICAL CLEANING Coronary artery disease of [place] artery of [place] heart with stable angina pectoris TRANSTHORACIC ECHO (TTE) COMPLETE W DOPPLER/CF W CONTRAST Routine 04/04/2024 1:37 PM OPERATIONS SUPERVISOR CHEMICAL CLEANING Coronary artery disease of [place] artery of [place] heart with stable angina pectoris LIPID PANEL Routine 10/20/2023 from Last 3 Months or Most Recently Relevant to Health Maintenance Results * Cardiology Document Scan (05/04/2024 10:59 AM OPERATIONS SUPERVISOR CHEMICAL CLEANING) Anatomical Region Laterality Modality Other Julio Richardson MD CV CARDIAC SERVICES PRO CEDURES Final Result * Cardiology Document Scan (05/03/2024 10:55 AM OPERATIONS SUPERVISOR CHEMICAL CLEANING) Anatomical Region Laterality Modality Other Julio Richardson MD CV CARDIAC SERVICES PRO CEDURES Final Result * Cardiology Document Scan (05/03/2024 8:33 AM OPERATIONS SUPERVISOR CHEMICAL CLEANING) Anatomical Region Laterality Modality Other Julio Richardson MD CV CARDIAC SERVICES PRO CEDURES Final Result * Cardiology Document Scan (05/02/2024 10:52 AM OPERATIONS SUPERVISOR CHEMICAL CLEANING) Anatomical Region Laterality Modality Other Fernando Modi MD CV CARDIAC SERVICES PROCEDURES F inal Result * Cardiology Document Scan (05/02/2024 10:10 AM OPERATIONS SUPERVISOR CHEMICAL CLEANING) Anatomical Region Laterality Modality Other eFrnando Modi MD CV CARDIAC SERVICES PROCEDURES F inal Result * NM MPI SPECT (Rest and/or Stress) Multiple Studies (04/20/2024 12:17 PM OPERATIONS SUPERVISOR CHEMICAL CLEANING) Anatomical Region Laterality Modality Body N/A Nuclear Medicine 04/20/2024 11:1 5 AM OPERATIONS SUPERVISOR CHEMICAL CLEANING Narrative 04/21/2024 4:44 PM OPERATIONS SUPERVISOR CHEMICAL CLEANING [facility] Cardiology [address] [facility] [address], [place] [address] [address] [facility] [address], [place] [address] P:[phone] P:[phone] MPI Imaging Report Patient Name: KLAUDIA HALEY B : 1960 Study Date: 04/20/2024 11:15:21 AM Gender: M Tech: [facility] Location: [facility] Provider: IFRAH GIBSON Height(Cm): 182.9 BSA: [...] Smoker, and I25.118 Atherosclerotic heart disease of [place] coronary artery with other forms of angina [...] By: Husam Raymundo MD 04/21/2024 4:43:33 PM OPERATIONS SUPERVISOR CHEMICAL CLEANING Electronically Signed By: Husam Raymundo MD 04/21/2024 4:43:33 PM OPERATIONS SUPERVISOR CHEMICAL CLEANING Procedure Note Husam Raymundo MD - 04/21/2024 [facility] Cardiology [address], [place] [address] [address] [facility] [address], [place] [address] P:[phone] P:[phone] MPI Imaging Report Patient Name: KLAUDIA HALEY B : 1960 Study Date: 04/20/2024 11:15:21 AM Gender: M [facility] Provider: IFRAH GIBSON Height(Cm): 182.9 BSA: [...] Smoker, and I25.118 Atherosclerotic heart disease of [place] coronary artery withother forms of angina pectoris. [...] By: Husam Raymundo MD 04/21/2024 4:43:33 PM OPERATIONS SUPERVISOR CHEMICAL CLEANING Electronically Signed By: Husam Raymundo MD 04/21/2024 4:43:33 PM OPERATIONS SUPERVISOR CHEMICAL CLEANING us Ifrah Gibson PARKING STATION ATTENDANT IMG NM PROCEDURES Final R esult * TRANSTHORACIC ECHO (TTE) COMPLETE W DOPPLER/CF W CONTRAST (04/04/2024 1:37 PM OPERATIONS SUPERVISOR CHEMICAL CLEANING) LV EF 75 % CONS SCIMAGE Anatomical Region Laterality Modality Ultrasound 04/04/2024 12:5 7 PM OPERATIONS SUPERVISOR CHEMICAL CLEANING Narrative 04/04/2024 3:50 PM OPERATIONS SUPERVISOR CHEMICAL CLEANING [facility] Cardiology [address], [place] [address] [address], [place] [address] P:[phone] P:[phone] Echocardiographic Report Patient Name: KLAUDIA HALEY B : 1960 Study Date: 04/04/2024 12:57:00 PM Gender: M Tech: Location: [facility] Provider: IFRAH GIBSON Height(Cm): 183 BSA: 2.64 Weight(Kg): 137.4 Heart Rate: 79 BP: 132 / 72 Quality: Definity contrast agent used to enhance endocardial border definition Order Provider: IFRAH GIBSON PROCEDURES: Echocardiographic Report: Transthoracic echocardiogram with complete 2D, M-Mode, color Doppler examination and Definity contrast. INDICATIONS: Coronary Artery Disease, Shortness of breath, and I25.118 Atherosclerotic heart disease of [place] coronary artery with other forms of angina [...] FINDINGS: Interpretation Site: Exam was interpreted at [facility]. Left Ventricle: Normal left ventricular size. [...] views. Electronically Signed By: Todd Kwan MD, [facility] 04/04/2024 3:49:55 PM OPERATIONS SUPERVISOR CHEMICAL CLEANING Procedure Note Todd Kwan MD - 04/04/2024 [facility] Cardiology [address], [place] [address] [address] [facility] [address], [place] [address] P:[phone] P:[phone] Echocardiographic Report Patient Name: KLAUDIA HALEY B : 1960 Study Date: 04/04/2024 12:57:00 PM Gender: M Tech: Location: [facility] Provider: IFRAH GIBSON Height(Cm): 183 BSA: 2.64 Weight(Kg): 137.4 Heart Rate: 79 BP: 132 / 72 Quality: Definity contrast agent used to enhance endocardial borderdefinition Order Provider: IFRAH GIBSON PROCEDURES: Echocardiographic Report: Transthoracic echocardiogram with complete 2D, M-Mode, color Dopplerexamination and Definity contrast. INDICATIONS: Coronary Artery Disease, Shortness of breath, and I25.118 Atheroscleroticheart disease of [place] coronary artery with other forms of angina [...] FINDINGS: Interpretation Site: Exam was interpreted at [facility]. Left Ventricle: Normal left ventricular size. [...] Kwan MD, [facility] 04/04/2024 3:49:55 PM OPERATIONS SUPERVISOR CHEMICAL CLEANING Ifrah Gibson NP CV ECHO PROCEDURES Final [...] Recently Relevant to Health Maintenance [place] [address] MEDICARE MEDICARE [facility] Care Teams Homemaker Companion Relationship Specialty Start Date End Date Sandi Alfaro PA PCP - General Nurse Practitioner 08/21/17
--- OUTSIDE RECORDS SUMMARY | 2024-06-13 14:44 | XMS_ITS | Clinical Summary ---
Author Organization [facility] [address] [place] [address] Care Team Providers Care Manager Of Information Name Role Phone Sandi Alfaro Primary Care [...] 24 hr tabletIndication s:Coronary artery disease of [place] artery of [place] heart with stable angina pectoris TAKE 2 [...] implantable loop record er 10/13/2017 Overview (10/13/2017): [employer] Reveal Loop Recorder. Dx; Cryptogenic Stroke. DOI 10/12/[address] Willoughby. [facility] remote monitoring. TIA (transient ischemic attack) 10/06/2017 S/P coronary artery stent placement 12/17/2016 Morbid obesity with BMI of 45.0-49.9, adult ([facility]) 08/13/2016 Mixed anxiety depressive disorder 05/01/2015 Overview (06/07/2016): Anxiety and depression Coronary artery disease of n ative artery of [place] heart with stable angina pectoris 02/20/2015 Overview (06/07/2016): Coronary artery disease involving [place] coronary artery of [place] heart with other form of angina pectoris CVA, old, hemiparesis 02/20/2015 Overview (06/07/2016): CVA, old, hemiparesis Mixed diabetic hyperlipidemi a associated with type 2 diabetes mellitus ([facility]) 02/20/2015 Overview (06/07/2016): DM type 2 with diabetic dyslipidemia Hypertensive heart disease with congestive heart failure 02/20/2015 Overview (06/07/2016): Hypertensive heart disease with diastolic heart failure TAMIR on CPAP 10/17/2014 Overview (06/07/2016): TAMIR on CPAP Diabetes mellitus 10/17/2014 Overview (06/07/2016): DM (diabetes mellitus) Hypertension associated with diabetes 10/17/2014 Overview (06/07/2016): HTN (hypertension), benign Encounters Date Type Department Care Team Description 05/16/2024 Orders Only [facility] Cardiology [address] [place] [phone] Julio Richardson MD 05/10/2024 Orders Only [facility] Medical [facility] Cardiology [address] [place] [address] Fernando Modi MD 04/22/2024 Results Follow-Up [facility] Medical [facility] Cardiology [address] [place] [address] Harini Mann RN Chest pain, unspecified type (Primary Dx); Cardiovascular stress test abnormal 04/21/2024 8:15 AM CORRUGATOR HELPER Ancillary Procedure [facility] Cardiology [address] [place] [address] [place] [phone] Coronary artery disease of [place] artery of [place] heart with stable angina pectoris 04/20/2024 11:15 AM CORRUGATOR HELPER Ancillary Procedure [facility] Cardiology [address] [place] [address] [place] [phone] Coronary artery disease of [place] artery of [place] heart with stable angina pectoris 04/11/2024 Telephone [place] [address] [place] [phone] Fernando Modi MD NM stress test instructions 04/04/2024 1:00 PM CORRUGATOR HELPER Ancillary Procedure [place] [address] [place] [phone] Coronary artery disease of [place] artery of [place] heart with stable angina pectoris 03/29/2024 Telephone [place] [address] [place] [phone] Ifrah Gibson NP 03/28/2024 9:00 AM CORRUGATOR HELPER Office Visit [place] [address] [place] [phone] Ifrah Gibson NP Coronary artery disease of [place] artery of [place] heart with stable angina pectoris (Primary Dx); CVA, old, hemiparesis (HCC); Hypertension associated with diabetes (HCC); Recently quit using tobacco 03/24/2024 Telephone [place] [address] [place] [phone] Fernando Modi MD Chest Pain from Last [...] on file Legal Sex Male 3:15 AM CORRUGATOR HELPER Gender Identity Male 09/03/2018 6:22 AM CDT Sexual Orientation Straight 09/03/2018 6: 22 AM CDT Obstetrics History Last Filed Vital Signs Vital Sign Reading Time Taken Comments Blood Pressure 132/72 03/28/2024 9:10 AM CORRUGATOR HELPER Pulse 82 01/18/2024 8:53 AM CORRUGATOR HELPER Temperature - - Respiratory Rate - - Oxygen Saturation 96% 03/28/2024 9:10 AM CORRUGATOR HELPER Inhaled Oxygen Concentration - - Weight 137.4 kg (303 lb) 03/28/2024 9:10 AM CORRUGATOR HELPER Height 182.9 cm (6') 03/28/2024 9:10 AM CORRUGATOR HELPER Body Mass Index 41.09 03/28/2024 9:10 AM CORRUGATOR HELPER Plan of Treatment Health Maintenance Due Date [...] CARDIOLOGY DOCUMENT SCAN Routine 05/04/2024 10:59 AM CORRUGATOR HELPER CARDIOLOGY DOCUMENT SCAN Routine 05/03/2024 10:55 AM CORRUGATOR HELPER CARDIOLOGY DOCUMENT SCAN Routine 05/03/2024 8:33 AM CORRUGATOR HELPER CARDIOLOGY DOCUMENT SCAN Routine 05/02/2024 10:52 AM CORRUGATOR HELPER CARDIOLOGY DOCUMENT SCAN Routine 05/02/2024 10:10 AM CORRUGATOR HELPER NM MPI SPECT (REST AND/OR STRESS) MULTIPLE STUDIES Schedule Routine, Read Routine (OP Routine) 04/20/2024 12:17 PM CORRUGATOR HELPER Coronary artery disease of [place] artery of [place] heart with stable angina pectoris TRANSTHORACIC ECHO (TTE) COMPLETE W DOPPLER/CF W CONTRAST Routine 04/04/2024 1:37 PM CORRUGATOR HELPER Coronary artery disease of [place] artery of [place] heart with stable angina pectoris LIPID PANEL Routine 10/20/2023 from Last 3 Months or Most Recently Relevant to Health Maintenance Results * Cardiology Document Scan (05/04/2024 10:59 AM CORRUGATOR HELPER) Anatomical Region Laterality Modality Other Julio Richardson MD CV CARDIAC SERVICES PRO CEDURES Final Result * Cardiology Document Scan (05/03/2024 10:55 AM CORRUGATOR HELPER) Anatomical Region Laterality Modality Other Julio Richardson MD CV CARDIAC SERVICES PRO CEDURES Final Result * Cardiology Document Scan (05/03/2024 8:33 AM CORRUGATOR HELPER) Anatomical Region Laterality Modality Other Julio Richardson MD CV CARDIAC SERVICES PRO CEDURES Final Result * Cardiology Document Scan (05/02/2024 10:52 AM CORRUGATOR HELPER) Anatomical Region Laterality Modality Other Fernando Modi MD CV CARDIAC SERVICES PROCEDURES F inal Result * Cardiology Document Scan (05/02/2024 10:10 AM CORRUGATOR HELPER) Anatomical Region Laterality Modality Other us Fernando Modi MD CV CARDIAC SERVICES PROCEDURES F inal Result * NM MPI SPECT (Rest and/or Stress) Multiple Studies (04/20/2024 12:17 PM CORRUGATOR HELPER) Anatomical Region Laterality Modality Body N/A Nuclear Medicine 04/20/2024 11:1 5 AM CORRUGATOR HELPER Narrative 04/21/2024 4:44 PM CORRUGATOR HELPER [facility] Medical Group Cardiology [address] [facility] [address], [place] [address] [address] [facility] [address], [place] [address] P:[phone] P:[phone] MPI Imaging Report Patient Name: KLAUDIA HALEY B : 1960 Study Date: 04/20/2024 11:15:21 AM Gender: M Tech: [facility] Location: [facility] Provider: IFRAH GIBSON Height(Cm): 182.9 [...] Smoker, and I25.118 Atherosclerotic heart disease of [place] coronary artery with other forms of angina [...] By: Husam Raymundo MD 04/21/2024 4:43:33 PM CORRUGATOR HELPER Electronically Signed By: Husam Raymundo MD 04/21/2024 4:43:33 PM CORRUGATOR HELPER Procedure Note Husam Raymundo MD - 04/21/2024 [facility] Cardiology [address] [facility] [address], [place] [address] [address], [place] [address] P:[phone] P:[phone] MPI Imaging Report Patient Name: KLAUDIA HALEY B : 1960 Study Date: 04/20/2024 11:15:21 AM Gender: M Tech: SHORTY [facility] Location: [facility] Provider: IFRAH GIBSON Height(Cm): 182.9 [...] Smoker, and I25.118 Atherosclerotic heart disease of [place] coronary artery withother forms of angina pectoris. [...] By: Husam Raymundo MD 04/21/2024 4:43:33 PM CORRUGATOR HELPER Electronically Signed By: Husam Raymundo MD 04/21/2024 4:43:33 PM CORRUGATOR HELPER Ifrah Gibson BEET WORKER IMG NM PROCEDURES Final R esult * TRANSTHORACIC ECHO (TTE) COMPLETE W DOPPLER/CF W CONTRAST (04/04/2024 1:37 PM CORRUGATOR HELPER) LV EF 75 % CONS SCIMAGE Anatomical Region Laterality Modality Ultrasound 04/04/2024 12:5 7 PM CORRUGATOR HELPER Narrative 04/04/2024 3:50 PM CORRUGATOR HELPER [facility] Cardiology [address] [facility] [address] [id number] [address] [facility] [address] [address] P:[phone] P:[phone] Echocardiographic Report Patient Name: KLAUDIA HALEYTomas : 1960 Study Date: 04/04/2024 12:57:00 PM Gender: M Tech: Location: [place] Ref Provider: IFRAH GIBSON Height(Cm): 183 BSA: 2.64 Weight(Kg): 137.4 Heart Rate: 79 BP: 132 / 72 Quality: Definity contrast agent used to enhance endocardial border definition Order Provider: IFRAH GIBSON PROCEDURES: Echocardiographic Report: Transthoracic echocardiogram with complete 2D, M-Mode, color Doppler examination and Definity contrast. INDICATIONS: Coronary Artery Disease, Shortness of breath, and I25.118 Atherosclerotic heart disease of [place] coronary artery with other forms of angina [...] FINDINGS: Interpretation Site: Exam was interpreted at [facility]. Left Ventricle: Normal left ventricular size. Definity [...] views. Electronically Signed By: Todd Kwan MD, [facility] 04/04/2024 3:49:55 PM CORRUGATOR HELPER Procedure Note Todd Kwan MD - 04/04/2024 [facility] Medical [facility] Cardiology [address] [facility] [address], [place] [address] [address] [facility] [address], [address] [address] P:[phone] P:[phone] Echocardiographic Report Patient Name: KLAUDIA HALEY B : 1960 Study Date: 04/04/2024 12:57:00 PM Gender: M Tech: Location: [facility] Provider: IFRAH GIBSON Height(Cm): 183 BSA: 2.64 Weight(Kg): 137.4 Heart Rate: 79 BP: 132 / 72 Quality: Definity contrast agent used to enhance endocardial borderdefinition Order Provider: IFRAH GIBSON PROCEDURES: Echocardiographic Report: Transthoracic echocardiogram with complete 2D, M-Mode, color Dopplerexamination and Definity contrast. INDICATIONS: Coronary Artery Disease, Shortness of breath, and I25.118 Atheroscleroticheart disease of [place] coronary artery with other forms of angina [...] FINDINGS: Interpretation Site: Exam was interpreted at [facility]. Left Ventricle: Normal left ventricular size. Definity [...] views. Electronically Signed By: Todd Kwan MD, [facility] 04/04/2024 3:49:55 PM CORRUGATOR HELPER Ifrah Gibson NP CV ECHO PROCEDURES Final [...] Health Maintenance Insurance [facility] MEDICARE MEDICARE [facility] Care Teams Manager Of Information Relationship Specialty Start Date End Date Sandi Alfaro PA PCP - General Nurse Practitioner 08/21/17
--- OUTSIDE RECORDS SUMMARY | 2024-06-13 14:44 | XMS_ITS | Encounter Summary ---
Author Organization [facility] Address [address] [place] [id number] Care Team Providers Care Community Engagement Manager Name Role Phone Sandi Alfaro Primary Care Provider [phone] Cheryl Huston RN Unavailable Unavailable Encounter Details Date Type Department Care Team (Late st Contact Info) Description 08/18/2023 [employer] [facility] Message Enc [facility] Medical Group Multispecialty Care - [facility] [address] [facility] [place], [address] [place] [id number] [email or web address], [facility] Provider Results Social History Tobacco Use Types Packs/Day Years Used Date Smoking Tobacco: Every Day Cigarettes 0.3 40 Smokeless Tobacco: Never Comments:currently smoking 2 -3 cigarettes a day Alcohol Use Standard Drinks/Week Comments Yes 0 (1 standard drink = 0.6 oz pur e alcohol) very rarely 6 beers/year [facility] Utilities Answer Date Recorded In the past 12 months has [facility] [employer], gas, oil, or water [employer] threatened to shut off services in your [...] How often do you attend chur or voodoo services? 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 Legal Sex Male 8:01 PM CDT [...] Description 06/21/2024 8:40 AM CDT Office Visit [facility] Medical Group Family & Internal Medicine [address] [phone] Sandi Alfaro APNP [address] [place] [address] documented as of this encounter Visit Diagnoses Not on filedocumented in this encounter Additional Health Concerns Assessment Noted Time PHQ-9 Depression Total Score: 0 05/21/19 24 11:21 AM CDT documented as of this encounter Care Teams Community Engagement Manager Relationship Specialty Start Date End Date Sandi Alfaro APNP Family & Internal Medicine [address] [address] PCP - General [employer] REHABILITATION DIRECTOR 04/28/17 Cheryl Huston machine silver stripper (Ambulatory) REGISTERED NURSE 03/23/19 documented as of this encounter
--- OUTSIDE RECORDS SUMMARY | 2024-06-13 14:44 | XMS_ITS | Encounter Summary ---
Author Organization [facility] Address [address] [place] [address] Care Team Providers Care Black Topper Name Role Phone Sandi Alfaro Primary Care Provider [phone] Sandi Alfaro Unavailable [phone] Cheryl Huston RN Unavailable Unavailable Encounter Details Date Type Department Care Team (Latest Contact Info) Description 10/26/2017 Abstract 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 Medical Group Family & Internal Medicine [address] [phone] Sandi Alfaro APNP [address] [place] [phone] documented as of this encounter Visit Diagnoses Not on filedocumented in this encounter Additional Health Concerns Infection Onset Date Last Indicated Resolved Time COVID-19 Rule Out 10/24/2019 11/25/2019 11/27/2019 1:56 AM CDT COVID-19 Rule Out 05/03/2020 05/03/2020 05/03/2020 3:25 PM WELD ENGINEER COVID-19 Rule Out 05/12/2023 05/12/2023 05/13/2023 12:01 AM CDT Influenza - Seasonal 05/14/2023 05/14/2023 024 12:32 AM CDT documented as of this encounter Care Teams Black Topper Relationship Specialty Start Date End Date Sandi Alfaro APNP Family & Internal Medicine [address] [address] PCP - General [employer]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
--- NOTE | 2024-06-13 15:29 | ECG_ITS ---
Test Date: 2024-06-13 15:00:31 Measurements Intervals [place] Rate: 86 P: 48 AL: 164 QRS: 37 QRSD: 160 T: 34 QT: 391 QTc: 468 Interpretive Statements SINUS RHYTHM RIGHT BUNDLE BRANCH BLOCK CONSIDER INFERIOR INFARCT, AGE INDETERMINATE ABNORMAL ECG Compared to ECG 06/13/2024 12:47:50 NO SIGNIFICANT CHANGE Electronically Signed On 06-13-2024 15:19:53 CDT by Mathew Landon D.O.
[2024-06-13 16:03] LABS: Troponin I < 0.012 ng/mL (0.000-0.034)
--- NOTE | 2024-06-13 16:48 | ECG_ITS ---
Test Date: 2024-06-13 16:51:48 Measurements Intervals [place] Rate: 81 P: 10 UT: 163 QRS: 18 QRSD: 160 T: 35 QT: 400 QTc: 465 Interpretive Statements SINUS RHYTHM RIGHT BUNDLE BRANCH BLOCK CONSIDER INFERIOR INFARCT, AGE INDETERMINATE ABNORMAL ECG Compared to ECG 06/13/2024 15:00:31 NO SIGNIFICANT CHANGE Electronically Signed On 06-13-2024 16:53:29 CDT by Mathew Landon D.O.
[2024-06-13] MEDS: MORPHINE SULFATE (*CRX) 4 MG/ML INJ IV PUSH (16:52)
--- NOTE | 2024-06-13 17:37 | ED_ITS ---
HPI - General Adult General Chief complaint: Chest Pain Stated complaint: dizziness, SOB, CP Time Seen by Provider: 06/13/24 13:11 History of Present Illness HPI narrative: This is a 64-year-old male with history of coronary artery disease and persistent angina presenting for chest pain and palpitations. Symptoms started at 4:00 a.m. this morning. A pressure in the center of his chest that is nonradiating moderate in and constant. He says he has had this many times in the past. He took some nitro with improvement but then the pain quickly returned. He has had nausea but no vomiting. No diaphoresis. No exertional component. No fevers productive cough lower extremity edema. Related Data Home Medications ?Medication ?Instructions ?Recorded ?Confirmed ?Last Taken ?Type amlodipine 10 mg tablet 10 mg PO DAILY 01/24/19 05/02/24 12/24/23 History bupropion HCl 150 mg tablet,12 hr 150 mg PO BID 01/24/19 05/02/24 12/24/23 History sustained-release (Wellbutrin SR) metformin 1,000 mg tablet 1,000 mg PO BID 01/24/19 05/02/24 12/24/23 History atorvastatin 40 mg tablet 80 mg PO DAILY 05/16/19 05/02/24 12/23/23 History albuterol sulfate 90 mcg/actuation 2 puff inhalation Q4-6H PRN 01/09/20 05/02/24 12/24/23 History aerosol inhaler (Ventolin HFA) Shortness Of Breath isosorbide mononitrate 60 mg 120 mg PO DAILY 01/09/20 05/02/24 12/24/23 History tablet,extended release 24 hr loratadine 10 mg tablet (Claritin) 10 mg PO DAILY PRN allergy symptoms 03/15/20 05/02/24 12/24/23 History alprazolam 0.25 mg tablet 0.25 mg PO HS 08/21/21 05/02/24 12/24/23 History aspirin 81 mg chewable tablet 81 mg PO DAILY 09/29/21 05/02/24 12/24/23 History (Children's Aspirin) losartan 100 mg tablet 100 mg PO DAILY 05/02/24 05/02/24 Unknown History Allergies Allergy/AdvReac Type Severity Reaction Status Date / Time No Known Allergies Allergy Unknown Verified 06/13/24 12:37 PMFSH Past Medical History Medical History NSTEMI (non-ST elevated myocardial infarction) Coronary artery disease Stent to the distal circumflex and Left anterior descending in 2014. Left anterior descending stent in 04/2015. COVID Transient ischemic attack Diabetic peripheral neuropathy Peripheral vascular disease Deep venous thrombosis Gastric ulcer Obstructive sleep apnea on CPAP Hyperlipidemia Hypertension Type 2 diabetes mellitus Gastroesophageal reflux disease Chronic obstructive pulmonary disease Cerebrovascular accident Mild left-sided weakness. Congestive heart failure BMI greater than 40 Chronic anticoagulation Hydronephrosis Angina at rest Psoriasis Depression Fracture of fifth toe, right, closed Kidney stones Pneumonia Myocardial infarction Seasonal allergies Surgical History Surgical History History of tonsillectomy History of cholecystectomy History of lithotripsy History of heart artery stent X2. History of rectal polypectomy History of cardiac catheterization 2 stents Family History Family History Mother Diabetes mellitus Arthritis Kidney stones Coronary artery disease Father Acute myocardial infarction Heart disease Kidney stones Hypertension Coronary artery disease Sibling Coronary artery disease Heart disease Hx of CABG Social History Social History Social History: Surrogate decision maker: Rena Dodd, friend. Code status: Full code. Smoking packs per day: 1 Smoking cigarettes per day: 20.0 Years smoked: 45 Smoking pack-years: 45.00 Smoking status: Former smoker Tobacco type: cigarettes Second hand tobacco smoke exposure: Yes Smoking end date: 02/17/24 Alcohol intake: current Drinks per week: 0 Substance use: former Substance use type: marijuana Last use: 10/01/2023 Do You Feel Safe in your Home?: Yes Lack of Transportation: No Lack of Food: Never True Current Housing: I Have Housing Concerned About Future Housing: No Difficulty Paying Gas/Electric Bills: No Difficulty Paying for Meds: No Currently Unemployed: No Education: High School Diploma/GED Difficulty w/ Childcare or Family Care: No Living arrangements: with roommate(s) Additional living arrangements comments: The patient lives in [place] with a roommate. He has no children. Occupation/Education: other Additional occupation/education comments: Disabled. Spiritual care concerns: No Exam 2 Narrative: APPEARANCE: Obese, no apparent distress Head: atraumatic. EYES: EOMI, NOSE: Atraumatic NECK: Trachea midline RESPIRATORY: No increased rate of breathing clear to auscultation CARDIOVASCULAR: RRR, no peripheral edema ABDOMINAL: Obese, soft nontender MUSCULOSKELETAl: No obvious deformities NEURO: Alert. Moving 4/4 extremities SKIN:: Warm, dry. Normal color PSYCHIATRIC: Normal affect Course Vital Signs Vital signs: Vital Signs Temperature 97.6 F 06/13/24 12:34 Pulse Rate 87 06/13/24 12:34 Respiratory Rate 18 06/13/24 12:34 Blood Pressure 110/67 06/13/24 12:34 Pulse Oximetry 98 06/13/24 12:34 Oxygen Delivery Room Air 06/13/24 12:34 Temperature 97.6 F 06/13/24 12:34 Pulse Rate 83 06/13/24 17:27 Respiratory Rate 20 06/13/24 17:27 Blood Pressure 110/71 06/13/24 17:27 Pulse Oximetry 97 06/13/24 17:27 Oxygen Delivery Room Air 06/13/24 12:53 Medical Decision Making MDM Narrative Medical decision making narrative: -Course: 64-year-old male with coronary artery disease presenting for chest pain. EKG is unchanged from previous. Troponins are negative x2. Chest x-ray clear. No evidence of fluid overload/CHF exacerbation. Patient given oxygen and morphine with some improvement in pain but still feeling pressure. Blood pressures are too low for nitro drip. Dr. Richardson was consulted. Patient will be admitted to the hospital for chest pain. -DDX includes but is not limited to: Angina, unstable angina, NSTEMI, CHF exacerbation Vital Signs Vital Signs: Vital Signs Temperature 97.6 F 06/13/24 12:34 Pulse Rate 87 06/13/24 12:34 Respiratory Rate 18 06/13/24 12:34 Blood Pressure 110/67 06/13/24 12:34 Pulse Oximetry 98 06/13/24 12:34 Oxygen Delivery Room Air 06/13/24 12:34 Temperature 97.6 F 06/13/24 12:34 Pulse Rate 83 06/13/24 17:27 Respiratory Rate 20 06/13/24 17:27 Blood Pressure 110/71 06/13/24 17:27 Pulse Oximetry 97 06/13/24 17:27 Oxygen Delivery Room Air 06/13/24 12:53 Lab Data 06/13/24 12:43 06/13/24 12:43 Labs: Lab Results 06/13/24 06/13/24 Range/Units 12:43 15:31 WBC 6.5 (4.5-10.0) K/mm3 RBC 4.42 L (4.6-6.20) M/mm3 Hgb 13.5 L (14.0-18.0) g/dL Hct 40.5 L (42.0-52.0) % MCV 91.6 (80-100) fl MCH 30.5 (26-34) pg MCHC 33.3 (32-36) g/dl RDW 13.5 (11.5-14.5) % Plt Count 133 L (150-375) k/mm3 MPV 11.5 H (7.4-10.4) fl Immature Gran % (Auto) 0.3 (0-0.5) % Neut % (Auto) 68.5 (45.5-73.1) % Lymph % (Auto) 19.5 (18.3-44.2) % [place] % (Auto) 9.4 H (2.6-8.5) % Eos % (Auto) 1.8 (0-4.4) % Baso % (Auto) 0.5 (0.2-1.2) % Lymph # (Auto) 1.27 (0.9-3.2) K/mm3 [place] # (Auto) 0.6 (0.1-0.6) K/mm3 Eos # (Auto) 0.1 (0-0.3) K/mm3 Baso # (Auto) 0.0 (0.0-0.1) K/mm3 Abs Immat Gran (auto) 0.02 (0.00-0.031) K/mm3 Absolute Neuts (auto) 4.5 (1.3-6.7) K/mm3 Absolute Nucleated RBC 0.000 (0.0-0.012) K/mm3 Nucleated RBC % 0.0 (0.0-0.2) % % Immature Plt Fraction 6.8 (0.9-11.2) % PT 15.4 H (11.1-14.7) Seconds INR 1.2 APTT 31.3 (22.3-36.8) Seconds Sodium 137 (137-145) mmol/L Potassium 4.2 (3.4-5.0) mmol/L Chloride 103 (98-107) mmol/L Carbon Dioxide 22 (22-30) mmol/L Anion Gap 12 (4-12) mmol/L BUN 19 (9-20) mg/dL Creatinine 1.27 (0.7-1.3) mg/dL Estim Creat Clear Calc 75 ml/min Estimated GFR 57 L (59 - ) Glucose 164 H (65-110) mg/dL Calcium 9.1 (8.4-10.2) mg/dL Total Bilirubin 0.6 (0.2-1.3) mg/dL AST 29 (17-59) U/L ALT 44 (6-50) U/L Alkaline Phosphatase 63 (38-126) U/L Troponin I < 0.012 < 0.012 (0.000-0.034) ng/mL Total Protein 7.0 (6.3-8.2) g/dL Albumin 4.2 (3.5-5.1) g/dL Lipase 155 (23-300) U/L Discharge Plan Discharge Clinical Impression: Chest pain Qualifiers: Chest pain type: unspecified Qualified Code(s): R07.9 - Chest pain, unspecified Patient Disposition: Still a Patient Condition: Stable Patient Language: Maori Prescriptions: No Action albuterol sulfate 90 mcg/actuation HFA aerosol inhaler 2 puff inhalation Q4-6H PRN (Reason: shortness of breath or wheezing) 30 Days Qty: 8.5 0RF isosorbide mononitrate 60 mg tablet extended release 24 hr 120 mg PO DAILY albuterol sulfate [Ventolin HFA] 90 mcg/actuation HFA aerosol inhaler 2 puff INHALATION Q4-6H PRN (Reason: Shortness Of Breath) loratadine [Claritin] 10 mg Tablet 10 mg PO DAILY PRN (Reason: allergy symptoms) aspirin [Children's Aspirin] 81 mg tablet,chewable 81 mg PO DAILY losartan 100 mg tablet 100 mg PO DAILY furosemide 40 mg Tablet 40 mg PO DAILY Qty: 30 0RF carvedilol [Coreg] 12.5 mg Tablet 12.5 mg PO Q12HR Qty: 60 0RF nitroglycerin [Nitrostat] 0.4 mg Tablet, Sublingual 0.4 mg sublingual Q5MIN PRN (Reason: Chest Pain) Qty: 26 0RF aspirin [Children's Aspirin] 81 mg Tablet,Chewable 81 mg PO DAILY@0800 Qty: 30 0RF omeprazole 40 mg capsule,delayed release(DR/EC) 40 mg PO DAILY Qty: 30 0RF tamsulosin 0.4 mg capsule 0.4 mg PO HS Qty: 30 0RF doxazosin [Cardura] 2 mg tablet 2 mg PO HS Qty: 30 0RF Jardiance 10 mg tablet 10 mg PO DAILY Qty: 30 0RF Trulicity 1.5 mg/0.5 mL pen injector 1.5 mg SUBCUT WEEKLY Qty: 10 0RF Rx Instructions: TAKES ON fridays Xarelto 2.5 mg tablet 2.5 mg PO BID Qty: 30 0RF bupropion HCl [Wellbutrin SR] 150 mg tablet sustained-release 12 hr 150 mg PO BID amlodipine 10 mg tablet 10 mg PO DAILY metformin 1,000 mg tablet 1,000 mg PO BID atorvastatin 40 mg tablet 80 mg PO DAILY alprazolam 0.25 mg tablet 0.25 mg PO HS Rx Instructions: at bedtime Follow-up/Referrals: Angelina,JOVITA Junior [Primary Care Provider] -
[2024-06-13 19:07] LABS: Troponin I < 0.012 ng/mL (0.000-0.034)
--- NOTE | 2024-06-13 20:15 | P.HP_ITS ---
H&P: HPI History of Present Illness Date/Time: 06/13/24 20:15 Chief Complaint: Chest pain. Narrative: This is a pleasant 64-year-old male with history of stroke, diabetes, coronary artery disease, peripheral vascular disease, congestive heart failure, and several other comorbidities who presented to the emergency department for evaluation of chest pain. He was admitted to the hospital in early April with chest pain and cardiac catheterization at that time showed [id number] disease for which medical management was recommended. He has been doing well since that time and has not had chest pain until today. He got up sometime this morning to use the restroom and when he returned to bed he developed pressure- like discomfort in the mid chest radiating into the left arm and up into the neck and head. He was feeling short of breath at that time with nausea as well. The discomfort improved with nitroglycerin x3. Since arrival to the ED he has continued to have intermittent pressure though is feeling much better. He denies syncope but reports having episodes of lightheadedness and dizziness upon standing on Thursday though not today. He also denies fever, cold and flu symptoms, pleuritic pain, palpitations, current shortness of breath, cough, abdominal pain, vomiting, diarrhea, lower extremity edema, and calf pain. In the ED: Vital signs were stable on arrival. Labs were significant for WBC c ount of 6.5, hemoglobin 13.5, glucose 164, creatinine 1.27, troponin less than 0.012. Chest x-ray showed no acute cardiopulmonary disease. EKG showed sinus rhythm with right bundle-branch block and possible age-indeterminate inferior infarct though the EKG did not show any significant change compared to prior tracings. He received aspirin 324 mg and morphine 4 mg and is being admitted in this setting for close monitoring and Cardiology consultation. Review of Systems Review of Systems: 12 systems were reviewed and are negativ e except for as per HPI. [facility] Past Medical History Medical History (Updated 06/13/24 @ 21:37 by Moira Olson PA-C) Hypertension Coronary artery disease Stent to the distal circumflex and Left anterior descending in 2014. Left anterior descending stent in 04/2015. COVID Transient ischemic attack Diabetic peripheral neuropathy Peripheral vascular disease Deep venous thrombosis Gastric ulcer Obstructive sleep apnea on CPAP Hyperlipidemia Type 2 diabetes mellitus Gastroesophageal reflux disease Chronic obstructive pulmonary disease Cerebrovascular accident Mild left-sided weakness. Congestive heart failure BMI greater than 40 Chronic anticoagulation Hydronephrosis Psoriasis Depression Fracture of fifth toe, right, closed Kidney stones Pneumonia Myocardial infarction Seasonal allergies Surgical History Surgical History (Updated 06/13/24 @ 21:35 by Moira Olson PA-C) History of coronary artery stent placement History of tonsillectomy History of cholecystectomy History of lithotripsy History of rectal polypectomy History of cardiac catheterization 2 stents Family History Family History Mother Diabetes mellitus Arthritis Kidney stones Coronary artery disease Father Acute myocardial infarction Heart disease Kidney stones Hypertension Coronary artery disease Sibling Coronary artery disease Heart disease Hx of CABG Social History Social History Social History: Surrogate decision maker: Rena Dodd, friend. Code status: Full code. Smoking packs per day: 1 Smoking cigarettes per day: 20.0 Years smoked: 45 Smoking pack-years: 45.00 Smoking status: Former smoker Tobacco type: cigarettes Second hand tobacco smoke exposure: Yes Smoking end date: 02/17/24 Alcohol intake: current Drinks per week: 0 Substance use: former Substance use type: marijuana Last use: 10/01/2023 Do You Feel Safe in your Home?: Yes Lack of Transportation: No Lack of Food: Never True Current Housing: I Have Housing Concerned About Future Housing: No Difficulty Paying Gas/Electric Bills: No Difficulty Paying for Meds: No Currently Unemployed: No Education: High School Diploma/GED Difficulty w/ Childcare or Family Care: No Living arrangements: with roommate(s) Additional living arrangements comments: The patient lives in [place] with a roommate. He has no children. Occupation/Education: other Additional occupation/education comments: Disabled. Spiritual care concerns: No Meds Home Medications and Allergies Home Medications ?Medication ?Instructions ?Recorded ?Confirmed ?Type amlodipine 10 mg tablet 10 mg PO DAILY 01/24/19 05/02/24 History bupropion HCl 150 mg tablet,12 hr 150 mg PO BID 01/24/19 05/02/24 History sustained-release (Wellbutrin SR) metformin 1,000 mg tablet 1,000 mg PO BID 01/24/19 05/02/24 History atorvastatin 40 mg tablet 80 mg PO DAILY 05/16/19 05/02/24 History albuterol sulfate 90 mcg/actuation 2 puff inhalation Q4-6H PRN 01/09/20 05/02/24 History aerosol inhaler (Ventolin HFA) Shortness Of Breath isosorbide mononitrate 60 mg 120 mg PO DAILY 01/09/20 05/02/24 History tablet,extended release 24 hr loratadine 10 mg tablet (Claritin) 10 mg PO DAILY PRN allergy symptoms 03/15/20 05/02/24 History alprazolam 0.25 mg tablet 0.25 mg PO HS 08/21/21 05/02/24 History aspirin 81 mg chewable tablet 81 mg PO DAILY 09/29/21 05/02/24 History (Children's Aspirin) albuterol sulfate 90 mcg/actuation 2 puff inhalation Q4-6H PRN 02/25/24 05/02/24 Rx aerosol inhaler shortness of breath or wheezing 30 days #8.5 grams losartan 100 mg tablet 100 mg PO DAILY 05/02/24 05/02/24 History aspirin 81 mg chewable tablet 81 mg PO DAILY@0800 #30 tabs 05/04/24 Rx (Children's Aspirin) carvedilol 12.5 mg tablet (Coreg) 12.5 mg PO Q12HR #60 tabs 05/04/24 Rx doxazosin 2 mg tablet (Cardura) 2 mg PO HS #30 tabs 05/04/24 05/02/24 Rx dulaglutide 1.5 mg/0.5 mL 1.5 mg (0.5 mL) subcut WEEKLY #10 05/04/24 05/02/24 Rx subcutaneous pen injector mL (Trulicity) empagliflozin 10 mg tablet 10 mg PO DAILY #30 tabs 05/04/24 05/02/24 Rx (Jardiance) furosemide 40 mg tablet 40 mg PO DAILY #30 tabs 05/04/24 Rx nitroglycerin 0.4 mg sublingual 0.4 mg sublingual Q5MIN PRN Chest 05/04/24 Rx tablet (Nitrostat) Pain #26 tabs omeprazole 40 mg capsule,delayed 40 mg PO DAILY #30 caps 05/04/24 05/02/24 Rx release rivaroxaban 2.5 mg tablet (Xarelto) 2.5 mg PO BID #30 tabs 05/04/24 05/02/24 Rx tamsulosin 0.4 mg capsule 0.4 mg PO HS #30 caps 05/04/24 05/02/24 Rx Allergies Allergy/AdvReac Type Severity Reaction Status Date / Time No Known Allergies Allergy Unknown Verified 06/13/24 12:37 Vital Signs Vital Signs - 24 hr 06/13/24 12:34 06/13/24 12:53 06/13/24 16:55 Temperature 97.6 F Pulse Rate 87 83 Respiratory Rate 18 16 Blood Pressure 110/67 109/72 Pulse Oximetry 98 97 99 Oxygen Delivery Room Air Room Air 06/13/24 17:27 Temperature Pulse Rate 83 Respiratory Rate 20 Blood Pressure 110/71 Pulse Oximetry 97 Oxygen Delivery Exam Narrative: General:?Well-developed male sitting up in bed in no acute distress. Weight: 137.8 kg. BMI: 41.2. HEENT:?Wearing glasses.?PERRL, EOMI. Sclera anicteric. Oral mucosa moist.? Neck:??Supple. No obvious JVD. Respiratory:?Lungs are clear to auscultation bilaterally. Cardiovascular:??Regular rate and rhythm with S1-S2.? Gastrointestinal:??Abdomen is soft, obese, nontender, and nondistended with positive bowel sounds. Skin:??Warm and dry.? Extremities:??No cyanosis, clubbing, or significant edema. Radial and pedal pulses intact. Neurological:?Alert and oriented. Cranial nerves 2-12 are grossly intact. No gross focal deficits to casual conversation. Psychiatric:??Pleasant and cooperative with appropriate mood and affect. H&P: Results Labs Labs: Short CBC 06/13/24 Range/Units 12:43 WBC 6.5 (4.5-10.0) K/mm3 Hgb 13.5 L (14.0-18.0) g/dL Hct 40.5 L (42.0-52.0) % Plt Count 133 L (150-375) k/mm3 [facility] 06/13/24 12:43 Sodium 137 Potassium 4.2 Chloride 103 Carbon Dioxide 22 BUN 19 Creatinine 1.27 Glucose 164 H Calcium 9.1 Cardiac Enzymes 06/13/24 06/13/24 06/13/24 Range/Units 12:43 15:31 18:41 Troponin I < 0.012 < 0.012 < 0.012 (0.000-0.034) ng/mL Liver Function 06/13/24 Range/Units 12:43 Total Bilirubin 0.6 (0.2-1.3) mg/dL AST 29 (17-59) U/L ALT 44 (6-50) U/L Alkaline Phosphatase 63 (38-126) U/L Albumin 4.2 (3.5-5.1) g/dL Imaging Chest X-Ray 06/13/24 13:24 IMPRESSION: 1. No acute cardiopulmonary disease. Assessment and Plan Assessment and plan (1) Chest pain: Qualifiers: Chest pain type: unspecified Qualified Code(s): R07.9 - Chest pain, u nspecified Code(s): R07.9 - Chest pain, unspecified Status: Acute (2) Chronic heart failure with preserved ejection fraction (HFpEF): Code(s): I50.32 - Chronic diastolic (congestive) heart failure Status: Acute (3) Hypertension: Code(s): I10 - Essential (primary) hypertension Status: Acute (4) Type 2 diabetes mellitus: Qualifiers: Diabetes mellitus chcf insulin use: with cytology teacher use Diabetes mellitus complication status: with neurologic complications Diabetes mellitus complication detail: with unspecified neuropathy Qualified Code(s): E11.40 - Type 2 diabetes mellitus with diabetic neuropathy, unspecified; Z79.4 - register of wills (current) use of insulin Code(s): E11.9 - Type 2 diabetes mellitus without complications Status: Acute (5) Chronic anticoagulation: Code(s): Z79.01 - register of wills (current) use of anticoagulants Status: Chronic (6) Obstructive sleep apnea on CPAP: Code(s): G47.33 - Obstructive sleep apnea (adult) (pediatric); Z99.89 - Dependence on other enabling machines and devices Status: Acute Plan The patient presented to the emergency department for evaluation of chest pain as detailed in HPI. Labs, imaging, EKG, and all reports were personally reviewed. Cardiac catheterization done in early April showed moderate coronary disease for which maximal medical therapy was recommended. The chest discomfort he has been having is typical of his angina and has improved with nitro. He is already on amlodipine, isosorbide mononitrate, and carvedilol. He was on r anolazine in the past but stopped taking that due to side effects however due to recurrent angina it may be prudent to restart this medication. Cardiology has been consulted for their opinion as well. He appears euvolemic on examination. Blood pressures are stable. Initiate sliding scale insulin, Accu-Cheks, and hypoglycemic protocol. CPAP will be provided for the patient to use while hospitalized. His medications will be reviewed and resumed as appropriate. Findings and treatment plan were discussed with the patient. Questions were solicited and answered to satisfaction. The patient's medical management will be taken over by the hospitalist team in a.m. Quality VTE Prophylaxis VTE prophylaxis: pharmacologic ordered (on rivaroxaban) Hospitalist [facility] Advance Care Plan I have confirmed that the patient's Advanced Care Plan is present, code status is documented, or surrogate decision maker is listed in patient medical record.: Yes Medication Reconciliation I have utilized all available resources to obtain, update and review the patients current medications (includes all prescriptions, OTC, herbals, cannabis, and nutritional supplements).: Yes
--- NOTE | 2024-06-13 22:39 | ADMGEN ---
This patient, Vini Zambrano, was admitted to IMU Room 201-01. Patient/family oriented to hospital policies and general routines including ID bracelet, bed and alarms, visiting hours, pain management, procedures, bathroom and other care routines, personal items, smoking policy, room service/diet, and visiting hours. Information on how to activate the Rapid Response Team has been discussed. Patient/Family are encouraged to report perceived risks to care and to ask questions if they do not understand what they are told or what they should do.
[2024-06-13] MEDS: WATER FOR IRRIGATION, STERILE 1,000 ML BOTTLE 1000 ML (22:56)
[2024-06-13 23:20] LABS: Glucose Point of Care 180 mg/dl (65-105)
[2024-06-13] MEDS: NITROGLYCERIN OINTMENT 1 INCH DOSE TRANSDERM (23:21)
[2024-06-13] MEDS: buPROPion HCL SR (12 HR) 150 MG TAB PO (23:21)
[2024-06-13] MEDS: carvediloL 12.5 MG TABLET PO (23:21)
[2024-06-13] MEDS: TAMSULOSIN HCL 0.4 MG CAPSULE PO (23:21)
[2024-06-13] MEDS: ALPRAZolam (*CRX) 0.25 MG TABLET PO (23:21)
[2024-06-14] VITALS (21 sets, daily range): BP systolic 113–144; BP diastolic 52–71; PULSE 71–99; RESP 16–28; TEMP 36.3–36.5; O2SAT 94–98
[2024-06-14 05:09] LABS: Anion Gap 12 mmol/L (4-12); Blood Urea Nitrogen 22 mg/dL (9-20); Calcium 8.6 mg/dL (8.4-10.2); Carbon Dioxide 22 mmol/L (22-30); Chloride 104 mmol/L (98-107); Estimated CRCL calculation 68 ml/min; Estimated Glomerular Filt Rate 52; Glucose 211 mg/dL (65-110); Magnesium 1.9 mg/dL (1.6-2.3); Potassium 3.8 mmol/L (3.4-5.0); Sodium 138 mmol/L (137-145)
[2024-06-14 07:53] LABS: Glucose Point of Care 162 mg/dl (65-105)
[2024-06-14] MEDS: carvediloL 12.5 MG TABLET PO ×2 (08:21→19:57)
[2024-06-14] MEDS: LOSARTAN POTASSIUM 100 MG TABLET PO (08:21)
[2024-06-14] MEDS: buPROPion HCL SR (12 HR) 150 MG TAB PO ×2 (08:21→17:33)
[2024-06-14] MEDS: ATORVASTATIN 40 MG TABLET 80 MG PO (08:21)
[2024-06-14] MEDS: FUROSEMIDE 40 MG TABLET PO (08:22)
[2024-06-14] MEDS: PANTOPRAZOLE 40 MG TABLET PO ×2 (08:22→17:33)
[2024-06-14] MEDS: EMPAGLIFLOZIN 10 MG TABLET PO (08:22)
[2024-06-14] MEDS: metFORMIN HCL 500 MG TABLET 1000 MG PO ×2 (08:22→17:33)
[2024-06-14] MEDS: amLODIPine BESYLATE 10 MG TABLET PO (08:22)
[2024-06-14] MEDS: ASPIRIN 81 MG CHEWABLE TABLET PO (08:22)
[2024-06-14] MEDS: ISOSORBIDE MONONITRATE 60 MG TAB.ER.24H 120 MG PO (08:22)
--- NOTE | 2024-06-14 10:22 | PC.NURSE ---
Pt reports I just don't feel right. It feels like it felt when I had my stroke. I can't explain it. Left arm drift noted. Alert and oriented. Reports dizziness. Face symmetrical. Speech clear with no expressive or receptive aphasia. PERRLA. Weakness to left arm and leg unchanged from this AM. Dr. Hodges made aware. New orders noted for STAT head CT.
[2024-06-14 10:47] LABS: Hematocrit 39.8 % (42.0-52.0); Hemoglobin 12.8 g/dL (14.0-18.0); Mean Corpuscular HGB Conc 32.2 g/dl (32-36); Mean Corpuscular Hemoglobin 30.6 pg (26-34); Mean Corpuscular Volume 95.2 fl (80-100); Mean Platelet Volume 11.7 fl (7.4-10.4); Platelet Count Result 114 k/mm3 (150-375); Red Blood Count 4.18 M/mm3 (4.6-6.20); Red Cell Distribution Width 14.1 % (11.5-14.5); White Blood Count 6.6 K/mm3 (4.5-10.0)
[2024-06-14 11:52] LABS: Glucose Point of Care 265 mg/dl (65-105)
[2024-06-14] MEDS: INSULIN ASPART (*BKC) 100 UNITS/ML SUB-Q (12:26)
--- NOTE | 2024-06-14 13:38 | PC.NURSE ---
Pt reports nausea and lower abdominal pain. Abdomen non-tender to touch. Reports he has had this pain intermittently prior to admission. Dr. Hodges made aware. New orders note for KUB.
[2024-06-14] MEDS: ONDANSETRON INJ 4 MG/2 ML VIAL IV PUSH (13:56)
[2024-06-14] MEDS: ACETAMINOPHEN 325 MG TABLET 650 MG PO (13:56)
--- NOTE | 2024-06-14 15:33 | P.CONCA_ITS ---
Assessment and Plan Assessment and plan (1) Chest pain: Qualifiers: Chest pain type: unspecified Qualified Code(s): R07.9 - Chest pain, unspecified Code(s): R07.9 - Chest pain, unspecified Status: Acute (2) Chronic heart failure with preserved ejection fraction (HFpEF): Code(s): I50.32 - Chronic diastolic (congestive) heart failure Status: Acute (3) Hypertension: Code(s): I10 - Essential (primary) hypertension Status: Acute (4) Coronary artery disease: Qualifiers: Associated angina: with other forms of angina Coronary Disease- Associated Artery/Lesion type: [place] artery [place] vs. 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 CAD status post PCI to proximal LAD and proximal LCX Chest pain-unstable angina with increasing frequency of chest pain episodes requiring more nitro to resolve and lasting for longer duration -negative troponin; EKG unchanged from before; chest x-ray no acute pathology -last cath in April of 2024 showed nonobstructive CAD (mid LAD with moderate mid LAD stenosis, 70-80% distal LAD stenosis, 70% proximal D2 stenosis, patent LCX stent with mild to moderate stenosis distal to stent, moderate stenosis in mid RPDA) and he was continued on medical management. I reviewed the films myself. The mid LAD has at least 60% stenosis and the large diagonal branch has 80% stenosis in the proximal vessel. Given patient's accelerating anginal symptoms, the mid LAD stenosis would merit evaluation with IFR and if positive PCI with GENARO. Also, consider PCI to the diagonal which is a large vessel and could be contributing to patient's symptoms. I discussed the plan with the patient and he is agreeable -trend troponin x3 -EKG p.r.n. for any chest pain -continue anti anginal meds including Coreg, Imdur, losartan, and amlodipine -continue aspirin -continue statin -check and replace electrolytes to keep K greater than 4 and Mg greater than 2 -TTE Lightheadedness: -monitor on telemetry; EKG shows sinus rhythm -evaluate loop recorder Hyperlipidemia -continue statin Hypertension -continue Coreg, amlodipine, losartan Chronic diastolic heart failure -continue Jardiance History of DVT -continue Xarelto Obstructive sleep apnea -CPAP History of Present Illness History of Present Illness Consult date/time: 06/14/24 15:33 Reason For Visit: Chest pain Narrative: 64-year-old male with medical history of CAD status post LCX and LAD PCI in 2015, LAD stent in 2016, chronic diastolic heart failure, hypertension, peripheral vascular disease, DVT on Xarelto, CVA with left-sided weakness, hyperlipidemia, type 2 diabetes mellitus with diabetic peripheral neuropathy, COPD, obesity, obstructive sleep apnea on CPAP presents with chief complaints of lightheadedness and chest pain. Patient states that he usually has angina for which he takes sublingual nitro and the pain resolves with 1 pill under his tongue. Yesterday he states that his chest pain did not resolved with 3 sublingual nitro and radiated to his arms neck jaw which prompted him to come to the ER. He has noticed that his chest pain is coming on more frequently and is lasting for longer duration and requiring more nitro to resolved. He reports lightheadedness since Thursday, which comes on when he a either goes from sitting to lying or sitting to standing position. He has not noticed any recent leg swelling or weight gain. In fact he has lost about 40 lb over the last year. He has off and on palpitations. He denies any presyncope, syncope, orthopnea, PND. Reports abdominal pain. He has diarrhea which is chronic without any recent change. No nausea, emesis, fever, chills. He is compliant with his medications. He has not changed any dietary habits recently. He had a recent catheterization in April of 2024 and a left pectoral implantable cardiac cath lab technologist. Workup: Troponin: Less than 0.012 EKG: Sinus rhythm, right bundle branch block, in inferior infarct age indeterminate (EKG unchanged from last EKG in April 2024) Chest x-ray: Negative for any acute pathology Abdominal x-ray: Negative for any acute pathology CT head: Negative for any acute pathology Review of Systems 2 Review of Systems: Complete review of systems was performed and negative other than those mentioned in HPI [facility] Past Medical History Medical History (Updated 06/13/24 @ 21:37 by Moira Olson PA-C) Hypertension Coronary artery disease Stent to the distal circumflex and Left anterior descending in 2014. Left anterior descending stent in 04/2015. COVID Transient ischemic attack Diabetic peripheral neuropathy Peripheral vascular disease Deep venous thrombosis Gastric ulcer Obstructive sleep apnea on CPAP Hyperlipidemia Type 2 diabetes mellitus Gastroesophageal reflux disease Chronic obstructive pulmonary disease Cerebrovascular accident Mild left-sided weakness. Congestive heart failure BMI greater than 40 Chronic anticoagulation Hydronephrosis Psoriasis Depression Fracture of fifth toe, right, closed Kidney stones Pneumonia Myocardial infarction Seasonal allergies Surgical History Surgical History (Updated 06/13/24 @ 21:35 by Moira Olson PA-C) History of coronary artery stent placement History of tonsillectomy History of cholecystectomy History of lithotripsy History of rectal polypectomy History of cardiac catheterization 2 stents Family History Family History Mother Diabetes mellitus Arthritis Kidney stones Coronary artery disease Father Acute myocardial infarction Heart disease Kidney stones Hypertension Coronary artery disease Sibling Coronary artery disease Heart disease Hx of CABG Social History Social History Social History: Surrogate decision maker: Rena Dodd, friend. Code status: Full code. Smoking packs per day: 1 Smoking cigarettes per day: 20.0 Years smoked: 30 Smoking pack-years: 30.00 Smoking status: Former smoker Tobacco type: cigarettes Second hand tobacco smoke exposure: Yes Smoking end date: 02/17/24 Alcohol intake: never Drinks per week: 0 Substance use: never Substance use type: marijuana Last use: 10/01/2023 Do You Feel Safe in your Home?: Yes Lack of Transportation: No Lack of Food: Never True Current Housing: I Have Housing Concerned About Future Housing: No Difficulty Paying Gas/Electric Bills: No Difficulty Paying for Meds: No Currently Unemployed: No Education: High School Diploma/GED Difficulty w/ Childcare or Family Care: No Living arrangements: with roommate(s) Additional living arrangements comments: The patient lives in [place] with a roommate. He has no children. Occupation/Education: other Additional occupation/education comments: Disabled. Spiritual care concerns: No Meds Home Medications and Allergies Home Medications ?Medication ?Instructions ?Recorded ?Confirmed ?Type amlodipine 10 mg tablet 10 mg PO DAILY 01/24/19 06/13/24 History bupropion HCl 150 mg tablet,12 hr 150 mg PO BID 01/24/19 06/13/24 History sustained-release (Wellbutrin SR) metformin 1,000 mg tablet 1,000 mg PO BID 01/24/19 06/13/24 History albuterol sulfate 90 mcg/actuation 2 puff inhalation Q4-6H PRN 01/09/20 06/13/24 History aerosol inhaler (Ventolin HFA) Shortness Of Breath isosorbide mononitrate 60 mg 120 mg PO DAILY 01/09/20 06/13/24 History tablet,extended release 24 hr loratadine 10 mg tablet (Claritin) 10 mg PO DAILY PRN allergy symptoms 03/15/20 06/13/24 History alprazolam 0.25 mg tablet 0.25 mg PO HS 08/21/21 06/13/24 History aspirin 81 mg chewable tablet 81 mg PO DAILY 09/29/21 06/13/24 History (Children's Aspirin) albuterol sulfate 90 mcg/actuation 2 puff inhalation Q4-6H PRN 02/25/24 06/13/24 Rx aerosol inhaler shortness of breath or wheezing 30 days #8.5 grams losartan 100 mg tablet 100 mg PO DAILY 05/02/24 06/13/24 History carvedilol 12.5 mg tablet (Coreg) 12.5 mg PO Q12HR #60 tabs 05/04/24 06/13/24 Rx empagliflozin 10 mg tablet 10 mg PO DAILY #30 tabs 05/04/24 06/13/24 Rx (Jardiance) nitroglycerin 0.4 mg sublingual 0.4 mg sublingual Q5MIN PRN Chest 05/04/24 06/13/24 Rx tablet (Nitrostat) Pain #26 tabs omeprazole 40 mg capsule,delayed 40 mg PO DAILY #30 caps 05/04/24 06/13/24 Rx release rivaroxaban 2.5 mg tablet (Xarelto) 2.5 mg PO BID #30 tabs 05/04/24 06/13/24 Rx tamsulosin 0.4 mg capsule 0.4 mg PO HS #30 caps 05/04/24 06/13/24 Rx atorvastatin 80 mg tablet 80 mg PO DAILY 06/13/24 06/13/24 History cyclobenzaprine 10 mg tablet 10 mg PO Q8H PRN muscle spasm 06/13/24 06/13/24 History dulaglutide 3 mg/0.5 mL 3 mg subcut WEEKLY 06/13/24 06/13/24 History subcutaneous pen injector (Trulicity) furosemide 40 mg tablet 40 mg PO DAILY 06/13/24 06/13/24 History Allergies Allergy/AdvReac Type Severity Reaction Status Date / Time No Known Allergies Allergy Unknown Verified 06/13/24 12:37 Vital Signs Vital Signs - 24 hr 06/13/24 16:55 06/13/24 17:27 06/13/24 22:30 Temperature 36.3 C L Pulse Rate 83 83 80 Respiratory Rate 16 20 18 Blood Pressure 109/72 110/71 139/67 Pulse Oximetry 99 97 99 Oxygen Delivery Fraction of Inspired Oxygen 06/13/24 22:33 06/13/24 22:57 06/13/24 23:20 Temperature Pulse Rate 84 Respiratory Rate Blood Pressure 137/61 Pulse Oximetry Oxygen Delivery Room Air Fraction of Inspired Oxygen 06/13/24 23:21 06/14/24 00:00 06/14/24 00:00 Temperature 36.5 C Pulse Rate 90 77 86 Respiratory Rate 18 Blood Pressure 120/52 L Pulse Oximetry 97 Oxygen Delivery Fraction of Inspired Oxygen 06/14/24 00:12 06/14/24 00:12 06/14/24 02:00 Temperature Pulse Rate 83 83 77 Respiratory Rate 20 Blood Pressure Pulse Oximetry 94 94 Oxygen Delivery Room Air CPAP Fraction of Inspired Oxygen 21 06/14/24 02:15 06/14/24 03:29 06/14/24 03:44 Temperature 36.5 C Pulse Rate 75 Respiratory Rate 18 Blood Pressure 128/59 L Pulse Oximetry 97 Oxygen Delivery CPAP Room Air Fraction of Inspired Oxygen 06/14/24 04:00 06/14/24 06:00 06/14/24 07:36 Temperature 36.4 C L Pulse Rate 75 72 76 Respiratory Rate 16 Blood Pressure 137/68 Pulse Oximetry 95 Oxygen Delivery Fraction of Inspired Oxygen 06/14/24 08:00 06/14/24 08:00 06/14/24 08:21 Temperature Pulse Rate 85 83 Respiratory Rate Blood Pressure Pulse Oximetry 95 Oxygen Delivery Room Air Fraction of Inspired Oxygen 06/14/24 10:00 06/14/24 11:23 06/14/24 12:00 Temperature 36.4 C L Pulse Rate 82 76 82 Respiratory Rate 20 Blood Pressure 144/71 H Pulse Oximetry 96 Oxygen Delivery Fraction of Inspired Oxygen 06/14/24 12:00 06/14/24 14:00 Temperature Pulse Rate 74 Respiratory Rate Blood Pressure Pulse Oximetry 96 Oxygen Delivery Room Air Fraction of Inspired Oxygen Exam 2 Narrative: General: Alert oriented x3, no acute distress Neck: Supple, no JVD Chest: Bilaterally clear to auscultation, no rales or rhonchi Cardiac: S1, S2 +, regular rate, regular rhythm, no murmurs or rubs Extremities: No pedal edema, no skin rash Neurologic: Alert and oriented x3, no focal neurological deficits Results Labs and Meds 06/14/24 03:57 06/14/24 03:57 Lab results: Cardiac Enzymes 06/13/24 06/13/24 Range/Units 15:31 18:41 Troponin I < 0.012 < 0.012 (0.000-0.034) ng/mL CBC 06/14/24 Range/Units 03:57 WBC 6.6 (4.5-10.0) K/mm3 RBC 4.18 L (4.6-6.20) M/mm3 Hgb 12.8 L (14.0-18.0) g/dL Hct 39.8 L (42.0-52.0) % Plt Count 114 L (150-375) k/mm3 Comprehensive Metabolic Panel 06/14/24 Range/Units 03:57 Sodium 138 (137-145) mmol/L Potassium 3.8 (3.4-5.0) mmol/L Chloride 104 (98-107) mmol/L Carbon Dioxide 22 (22-30) mmol/L BUN 22 H (9-20) mg/dL Creatinine 1.38 H (0.7-1.3) mg/dL Glucose 211 H (65-110) mg/dL Calcium 8.6 (8.4-10.2) mg/dL Intake and Output 06/13/24 06/14/24 06/14/24 23:59 07:59 15:59 Intake Total 720 Output Total 300 775 675 Balance -300 -775 45 Intake: Oral 480 Oral Supplement 240 Output: Urine 300 775 675 Patient Weight 06/14/24 23:59 Weight 135.4 kg EKG Interpretation EKG: sinus rhythm (Right bundle-branch block, possible inferior infarct age indeterminate, EKG is unchanged from prior EKG in April 2024)
[2024-06-14 16:53] LABS: Glucose Point of Care 170 mg/dl (65-105)
[2024-06-14] MEDS: NITROGLYCERIN SL 0.4 MG TABLET SUBLINGUAL (17:07)
--- NOTE | 2024-06-14 17:19 | PM.IMPN ---
Progress Note: A&P Assessment and Plan (1) Chest pain: Qualifiers: Chest pain type: unspecified Qualified Code(s): R07.9 - Chest pain, unspecified Code(s): R07.9 - Chest pain, unspecified Status: Acute (2) Chronic heart failure with preserved ejection fraction (HFpEF): Code(s): I50.32 - Chronic diastolic (congestive) heart failure Status: Acute (3) Hypertension: Code(s): I10 - Essential (primary) hypertension Status: Acute (4) Type 2 diabetes mellitus: Qualifiers: Diabetes mellitus nursing home insulin use: with nursing home use Diabetes mellitus complication status: with neurologic complications Diabetes mellitus complication detail: with unspecified neuropathy Qualified Code(s): E11.40 - Type 2 diabetes mellitus with diabetic neuropathy, unspecified; Z79.4 - custodial (current) use of insulin Code(s): E11.9 - Type 2 diabetes mellitus without complications Status: Acute (5) Chronic anticoagulation: Code(s): Z79.01 - custodial (current) use of anticoagulants Status: Chronic (6) Obstructive sleep apnea on CPAP: Code(s): G47.33 - Obstructive sleep apnea (adult) (pediatric); Z99.89 - Dependence on other enabling machines and devices Status: Acute Plan The patient presented to the emergency department for evaluation of chest pain as detailed in HPI. Labs, imaging, EKG, and all reports were personally reviewed. Cardiac catheterization done in early April showed moderate coronary disease for which maximal medical therapy was recommended. The chest discomfort he has been having is typical of his angina and has improved with nitro. He is already on amlodipine, isosorbide mononitrate, and carvedilol. He was on ranolazine in the past but stopped taking that due to side effects however due to recurrent angina it may be prudent to restart this medication. Cardiology has been consulted for their opinion as well. He appears euvolemic on examination. Blood pressures are stable. Initiate sliding scale insulin, Accu-Cheks, and hypoglycemic protocol. CPAP will be provided for the patient to use while hospitalized. His medications will be reviewed and resumed as appropriate. Findings and treatment plan were discussed with the patient. Questions were solicited and answered to satisfaction. The patient's medical management will be taken over by the hospitalist team in a.m. Morbidly obese patient with history of CAD presented with CP and light headedness, 3 sets of cardiac enzymes are negative, and no acute change seen on EKG seen by stain wiper, patient had a similar presentation recently in April and cardiac echo did not show any abnormalities and no further cardiac workup was recommended similarly stain wiper is recommending to monitor, to further evaluate c/o light headedness weakness of upper extremities CT scan was done and its normal will do MRI of the brain and further recommendation to follow. Subjective Date/time seen: 06/14/24 17:19 Interval history: Chief Complaint: H&P-Chest pain. Narrative: This is a pleasant 64-year-old male with history of stroke, diabetes, coronary artery disease, peripheral vascular disease, congestive heart failure, and several other comorbidities who presented to the emergency department for evaluation of chest pain. He was admitted to the hospital in early April with chest pain and cardiac catheterization at that time showed [id number] disease for which medical management was recommended. He has been doing well since that time and has not had chest pain until today. He got up sometime this morning to use the restroom and when he returned to bed he developed pressure-like discomfort in the mid chest radiating into the left arm and up into the neck and head. He was feeling short of breath at that time with nausea as well. The discomfort improved with nitroglycerin x3. Since arrival to the ED he has continued to have intermittent pressure though is feeling much better. He denies syncope but reports having episodes of lightheadedness and dizziness upon standing on Thursday though not today. He also denies fever, cold and flu symptoms, pleuritic pain, palpitations, current shortness of breath, cough, abdominal pain, vomiting, diarrhea, lower extremity edema, and calf pain. Morbidly obese patient with history of CAD presented with CP and light headedness, 3 sets of cardiac enzymes are negative, and no acute change seen on EKG seen by stain wiper, patient had a similar presentation recently in April and cardiac echo did not show any abnormalities and no further cardiac workup was recommended similarly stain wiper is recommending to monitor, to further evaluate c/o light headedness weakness of upper extremities CT scan was done and its normal will do MRI of the brain and further recommendation to follow. Review of Systems Review of Systems: 12 systems were reviewed and are negative except for as per HPI. Exam Narrative: Patient is comfortable, NAD HEENT: eyes are clear and none icteric LUNGS:CTA HEART: RR S1S2 ABD: BS+, Soft and nontender Lower extremities: no edema SKIN: nonjaundiced Neuro: grossly intact. Objective Data Vital Signs Vital Signs: Vital Signs - 24 hr 06/13/24 17:27 06/13/24 22:30 06/13/24 22:33 Temperature 36.3 C L Pulse Rate 83 80 84 Respiratory Rate 20 18 Blood Pressure 110/71 139/67 Pulse Oximetry 97 99 Oxygen Delivery Fraction of Inspired Oxygen 06/13/24 22:57 06/13/24 23:20 06/13/24 23:21 Temperature Pulse Rate 90 Respiratory Rate Blood Pressure 137/61 Pulse Oximetry Oxygen Delivery Room Air Fraction of Inspired Oxygen 06/14/24 00:00 06/14/24 00:00 06/14/24 00:12 Temperature 36.5 C Pulse Rate 77 86 83 Respiratory Rate 18 20 Blood Pressure 120/52 L Pulse Oximetry 97 94 Oxygen Delivery Room Air Fraction of Inspired Oxygen 06/14/24 00:12 06/14/24 02:00 06/14/24 02:15 Temperature Pulse Rate 83 77 Respiratory Rate Blood Pressure Pulse Oximetry 94 Oxygen Delivery CPAP CPAP Fraction of Inspired Oxygen 06/14/24 03:29 06/14/24 03:44 06/14/24 04:00 Temperature 36.5 C Pulse Rate 75 75 Respiratory Rate 18 Blood Pressure 128/59 L Pulse Oximetry 97 Oxygen Delivery Room Air Fraction of Inspired Oxygen 06/14/24 06:00 06/14/24 07:36 06/14/24 08:00 Temperature 36.4 C L Pulse Rate 72 76 Respiratory Rate 16 Blood Pressure 137/68 Pulse Oximetry 95 95 Oxygen Delivery Room Air Fraction of Inspired Oxygen 06/14/24 08:00 06/14/24 08:21 06/14/24 10:00 Temperature Pulse Rate 85 83 82 Respiratory Rate Blood Pressure Pulse Oximetry Oxygen Delivery Fraction of Inspired Oxygen 06/14/24 11:23 06/14/24 12:00 06/14/24 12:00 Temperature 36.4 C L Pulse Rate 76 82 Respiratory Rate 20 Blood Pressure 144/71 H Pulse Oximetry 96 96 Oxygen Delivery Room Air Fraction of Inspired Oxygen 06/14/24 14:00 06/14/24 16:00 Temperature 36.3 C L Pulse Rate 74 75 Respiratory Rate 16 Blood Pressure 113/64 Pulse Oximetry 98 Oxygen Delivery Fraction of Inspired Oxygen Intake/Output Intake/Output: Intake & Output 06/11/24 06/12/24 06/13/24 06/14/24 23:59 23:59 23:59 23:59 Intake Total 1510 Output Total 300 1725 Balance -300 -215 Meds/Results Medications: Active Medications Generic Name Dose Route Start Last Admin Trade Name Freq PRN Reason Stop Dose Admin Acetaminophen 650 mg 06/13/24 21:42 06/14/24 13:56 Acetaminophen 325 Mg Tablet PO 650 mg Q6H PRN Administration Mild Pain (1-3) or Fever Albuterol 2 puff 06/13/24 22:55 Albuterol Sulfate (*Sp) Aerosol 1 Puff INHALATION Q4-6H PRN Shortness Of Breath Alprazolam 0.25 mg 06/13/24 22:55 06/13/24 23:21 Alprazolam (*Crx) 0.25 Mg Tablet PO 0.25 mg HS BUZZ Administration Amlodipine Besylate 10 mg 06/14/24 09:00 06/14/24 08:22 Amlodipine Besylate 10 Mg Tablet PO 10 mg DAILY BUZZ Administration Aspirin 81 mg 06/14/24 09:00 06/14/24 08:22 Aspirin 81 Mg Chewable Tablet PO 81 mg DAILY BUZZ Administration Atorvastatin Calcium 80 mg 06/14/24 09:00 06/14/24 08:21 Atorvastatin 40 Mg Tablet PO 80 mg DAILY BUZZ Administration Bupropion HCl 150 mg 06/13/24 23:00 06/14/24 08:21 Bupropion Hcl Sr (12 Hr) 150 Mg Tab PO 150 mg BID BUZZ Administration Carvedilol 12.5 mg 06/13/24 23:00 06/14/24 08:21 Carvedilol 12.5 Mg Tablet PO 12.5 mg Q12HR BUZZ Administration Dextrose 12.5 gm 06/13/24 21:42 Dextrose 50% 25 Gm/50 Ml Syringe IV PUSH PRN PRN Hypoglycemia Protocol Empagliflozin 10 mg 06/14/24 09:00 06/14/24 08:22 Empagliflozin 10 Mg Tablet PO 10 mg DAILY BUZZ Administration Furosemide 40 mg 06/14/24 09:00 06/14/24 08:22 Furosemide 40 Mg Tablet PO 40 mg DAILY BUZZ Administration Glucagon 1 mg 06/13/24 21:42 Glucagon For Inj 1 Mg Vial IM PRN PRN Hypoglycemia Protocol Glucose 15 gm 06/13/24 21:42 Glucose Oral Gel 15 Gm Of Glucse In 37.5 Gm Tube PO PRN PRN Hypoglycemia Protocol Dextrose 1,000 mls @ 100 mls/hr 06/13/24 21:42 Dextrose 5% 1,000 Ml IVPB PRN PRN Hypoglycemia Protocol Insulin Aspart 4 - 8 units 06/14/24 08:00 06/14/24 12:26 Insulin Aspart (*Bkc) 100 Units/Ml SUB-Q 5 units TIDWM BUZZ Administration Protocol Insulin Aspart 2 - 4 units 06/13/24 21:50 06/13/24 23:07 Insulin Aspart (*Bkc) 100 Units/Ml SUB-Q Not Given HS [facility] Protocol Isosorbide Mononitrate 120 mg 06/14/24 09:00 06/14/24 08:22 Isosorbide Mononitrate 60 Mg Tab.Er.24h PO 120 mg DAILY BUZZ Administration Loratadine 10 mg 06/13/24 22:55 Loratadine 10 Mg Tablet PO DAILY PRN allergy symptoms Losartan Potassium 100 mg 06/14/24 09:00 06/14/24 08:21 Losartan Potassium 100 Mg Tablet PO 100 mg DAILY BUZZ Administration Metformin HCl 1,000 mg 06/14/24 09:00 06/14/24 08:22 Metformin Hcl 500 Mg Tablet PO 1,000 mg BID BUZZ Administration Miscellaneous Information 1 each 06/14/24 00:01 Pharmacy Is Out Of Stock On Xarelto 2.5 Mg, Can Pt Use From Home? Pharmacy Can Get It In W XX 07/14/24 00:00 CLARIFY [facility] Morphine Sulfate 4 mg 06/13/24 21:42 Morphine Sulfate (*Crx) 2 Mg/Ml Inj IV PUSH Q4H PRN Pain Rated 7-10 Nitroglycerin 0.4 mg 06/13/24 21:42 Nitroglycerin Sl 0.4 Mg Tablet SUBLINGUAL Q5MIN PRN Chest Pain Ondansetron HCl 4 mg 06/14/24 13:37 06/14/24 13:56 Ondansetron Inj 4 Mg/2 Ml Vial IV PUSH 4 mg Q6H PRN Administration Nausea And Vomiting Pantoprazole Sodium 40 mg 06/14/24 09:00 06/14/24 08:22 Pantoprazole 40 Mg Tablet PO 40 mg BID BUZZ Administration Perflutren Lipid Microsphere 0 ml 06/14/24 16:33 Perflutren Lipid Microspheres 1.5 Ml Vial Diluted To 10 Ml Total Volume IV PUSH 06/17/24 16:34 ONCE PRN adequate visualization Protocol Rivaroxaban 2.5 mg 06/14/24 09:00 Rivaroxaban 2.5 Mg Tablet PO BID BUZZ Tamsulosin HCl 0.4 mg 06/13/24 23:05 06/13/24 23:21 Tamsulosin Hcl 0.4 Mg Capsule PO 0.4 mg HS BUZZ Administration Radiology Results: ITS Impressions Chest X-Ray 06/13/24 13:24 IMPRESSION: 1. No acute cardiopulmonary disease. Head CT 06/14/24 11:22 Impression: No acute intracranial hemorrhage or suspicious mass effect. Abdomen X-Ray 06/14/24 14:30 IMPRESSION: 1: No acute abdominal abnormality identified. Labs Labs: Laboratory Results - last 24 hr 06/13/24 06/13/24 06/14/24 18:41 23:17 03:57 WBC 6.6 RBC 4.18 L Hgb 12.8 L Hct 39.8 L MCV 95.2 MCH 30.6 MCHC 32.2 RDW 14.1 Plt Count 114 L MPV 11.7 H Sodium 138 Potassium 3.8 Chloride 104 Carbon Dioxide 22 Anion Gap 12 BUN 22 H Creatinine 1.38 H Estim Creat Clear Calc 68 Estimated GFR 52 L Glucose 211 H POC Capillary Glucose 180 H Calcium 8.6 Magnesium 1.9 Troponin I < 0.012 06/14/24 06/14/24 06/14/24 07:37 11:21 16:16 WBC RBC Hgb Hct MCV MCH MCHC RDW Plt Count MPV Sodium Potassium Chloride Carbon Dioxide Anion Gap BUN Creatinine Estim Creat Clear Calc Estimated GFR Glucose POC Capillary Glucose 162 H 265 H 170 H Calcium Magnesium Troponin I Quality VTE Prophylaxis VTE prophylaxis: pharmacologic ordered (on rivaroxaban)
--- NOTE | 2024-06-14 17:25 | ECG_ITS ---
Test Date: 2024-06-14 17:32:09 Measurements Intervals [place] Rate: 73 P: 49 SD: 180 QRS: 23 QRSD: 158 T: 37 QT: 416 QTc: 460 Interpretive Statements SINUS RHYTHM RIGHT BUNDLE BRANCH BLOCK CONSIDER INFERIOR INFARCT, AGE INDETERMINATE ABNORMAL ECG Compared to ECG 06/13/2024 16:51:48 NO SIGNIFICANT CHANGE Electronically Signed On 06-15-2024 07:43:58 CDT by Mathew Landon D.O.
--- NOTE | 2024-06-14 17:29 | PC.NURSE ---
Rates chest pain 5/10. SL nitro given with relief. Now complains of SOB and nauseated. Dry heaving. PRN EKG ordered.
--- NOTE | 2024-06-14 17:42 | PHAR ---
PT'S HOME MED XARELTO 2.5 MG TABS VERIFIED BY PHARMACY
--- NOTE | 2024-06-14 17:45 | PC.NURSE ---
Nitro given for CP. BP 109/58. Dr Raymundo notified of CP, SOB, and nausea. EKG completed and reviewed. New orders to make NPO after midnight.
[2024-06-14] MEDS: RIVAROXABAN 2.5 MG TABLET PO (18:20)
[2024-06-14] MEDS: TAMSULOSIN HCL 0.4 MG CAPSULE PO (19:56)
[2024-06-14 20:08] LABS: Glucose Point of Care 187 mg/dl (65-105)
[2024-06-14] MEDS: ALPRAZolam (*CRX) 0.25 MG TABLET PO (21:01)
[2024-06-15] VITALS (16 sets, daily range): BP systolic 94–130; BP diastolic 40–70; PULSE 74–91; RESP 18–24; TEMP 36.3–36.7; O2SAT 95–98
--- NOTE | 2024-06-15 | ECHO_ITS ---
Patient Info Name: Vini Zambrano Age: 64 years : 1960 Gender: Male Ht: 72 in Wt: 304 lbs BSA: 2.71 m2 HR: 79 bpm BP: 127 / 70 mmHg Heart Rhythm: Sinus Rhythm Technical Quality: Fair Exam Date: 06/15/2024 10:38 AM Exam Location: Echo Lab Patient Status: Inpatient Admit Date: 06/13/2024 Staff Ordering Physician: Paola Nolen MD ([email or web address]) Bar Machine Operator: Miguelina Fitch RDCS Attending Provider: Anthony Boswell MD Exam Type: CA echo dop color flow w con Study Info Indications - Chest pain Complete two-dimensional, color flow and Doppler transthoracic echocardiogram is performed with contrast to opacify the left ventricle and to improve the deliniation of the left ventricle endocardial borders. Contrast/Agitated Saline Contrast/Ag. Saline: Definity Amount: 5.00 ml IV Access Condition: patent with no signs of infiltration Summary 1. There is normal biventricular size and systolic function. 2. There are no significant valvular abnormalities. Left Ventricle The left ventricle is normal in size and systolic function. There is concentric left ventricular remodeling. The left ventricular ejection fraction is visually estimated to be 60-65%. Right Ventricle The right ventricle is normal in size and systolic function. Left Atria The left atrium is normal size. Right Atria The right atrium is normal size. Atrial Septum The atrial septum is normal. Aortic Valve The aortic valve is trileaflet and opens well. There is no aortic regurgitation. Pulmonic Valve The pulmonic valve is not well visualized. There is no pulmonic valve regurgitation. Mitral Valve The mitral valve is normal. There is no mitral regurgitation. Tricuspid Valve The tricuspid valve is not well visualized. There is trace tricuspid regurgitation. Pericardium/Pleural Pericardium is normal in appearance with no evidence for significant pericardial effusion. Inferior Vena Cava Normal inferior vena cava with >50% collapse upon inspiration consistent with normal right atrial pressure, 3 mmHg. Aorta The aortic root at the level of the sinus of Valsalva measures 3.1 cm in diameter. Left Ventricular Outflow Tract Name Value Normal LVOT 2D LVOT Diameter 2.03 cm LVOT Doppler LVOT Peak Gradient 5 mmHg LVOT Mean Gradient 3 mmHg LVOT VTI 25.01 cm LVOT VTI/AV VTI Ratio 1.06 LVOT Stroke Volume 80.84 ml LVOT CO 5.80 l/min LVOT CI 2.14 L/min/m2 Pulmonic Valve Name Value Normal RVOT Doppler RVOT Peak Gradient 2 mmHg PV Doppler PV Peak Gradient 2 mmHg Mitral Valve Name Value Normal MV Doppler MV Decel [place] 208.08 cm/s2 MV PHT 0 s MV Area (PHT) 2.93 cm2 4.00-5.00 MV Diastolic Function MV E Peak Velocity 53.93 cm/s MV A Peak Velocity 72.83 cm/s MV E/A 0.74 MV Decel Time 0 s MV Annular TDI MV E/e' (Septal) 12.41 <=8.00 MV E/e' (Lateral) 9.97 <=8.00 MV E/e' (Average) 11.19 Tricuspid Valve Name Value Normal TV Regurgitation Doppler TR Peak Velocity 186.91 cm/s TR Peak Gradient 14 mmHg Estimated PAP/RSVP RA Pressure 3 mmHg <=5 PA Systolic Pressure 17 mmHg <36 RV Systolic Pressure 17 mmHg <36 Aortic Valve Name Value Normal AV Doppler AV Peak Velocity 128.99 cm/s AV Peak Gradient 0 mmHg AV Mean Gradient 0 mmHg AV VTI 23.54 cm AV Area (Cont Eq VTI) 3.44 cm2 >=3.00 AV Area (Cont Eq Omar) 2.83 cm2 AV Regurgitation 2D LVOT Area 3.23 cm2 Ventricles Name Value Normal LV Dimensions 2D/MM IVS Diastolic Thickness (2D) 1.19 cm 0.60-1.00 LVID Diastole (2D) 4.87 cm 4.20-5.80 LVIW Diastolic Thickness (2D) 1.22 cm 0.60-1.00 LVID Systole (2D) 3.20 cm 2.50-4.00 LVOT Diameter 2.03 cm LV Mass (2D Cubed) 225.50 g 88.00-224.00 LV Mass Index (2D Cubed) 0.01 g/cm2 0.00-0.01 Relative Wall Thickness (2D) 0.50 LV Fractional Shortening/Ejection Fraction 2D/MM LV Fractional Shortening (2D) 34 % 25-43 LV EF (2D Teicholz) 63 % 52-72 LV Diastolic Volume (4C MOD) 65.77 ml LV EF (4C MOD) 65 % LV Diastolic Volume (2C MOD) 84.76 ml LV EF (2C MOD) 62 % LV Diastolic Volume (BP MOD) 82.07 ml 62.00-150.00 LV Diastolic Volume Index (BP MOD) 0.03 l/m2 0.03-0.07 LV Systolic Volume (BP MOD) 28.62 ml 21.00-61.00 LV Systolic Volume Index (BP MOD) 0.01 l/m2 0.01-0.03 LV EF (BP MOD) 65 % 52-72 LV Diastolic Length (4C) 7.33 cm LV Systolic Length (4C) 6.19 cm LV Stroke Volume (4C MOD) 42.96 ml Atria Name Value Normal LA Dimensions LA Volume (4C A-L) 47.48 ml RA Dimensions RA Area (4C) 13.62 cm2 <=18.00 Report Signatures
[2024-06-15] MEDS: ONDANSETRON INJ 4 MG/2 ML VIAL IV PUSH ×3 (04:14→21:34)
[2024-06-15] MEDS: MORPHINE SULFATE (*CRX) 2 MG/ML INJ 4 MG IV PUSH (04:18)
[2024-06-15 04:31] LABS: Hematocrit 39.8 % (42.0-52.0); Hemoglobin 13.1 g/dL (14.0-18.0); Immature Platelet Fraction Pct 6.5 % (0.9-11.2); Mean Corpuscular HGB Conc 32.9 g/dl (32-36); Mean Corpuscular Hemoglobin 30.2 pg (26-34); Mean Corpuscular Volume 91.7 fl (80-100); Mean Platelet Volume 11.4 fl (7.4-10.4); Platelet Count Result 118 k/mm3 (150-375); Red Blood Count 4.34 M/mm3 (4.6-6.20); Red Cell Distribution Width 13.4 % (11.5-14.5); White Blood Count 6.4 K/mm3 (4.5-10.0)
[2024-06-15 04:41] LABS: Anion Gap 12 mmol/L (4-12); Blood Urea Nitrogen 25 mg/dL (9-20); Carbon Dioxide 24 mmol/L (22-30); Chloride 101 mmol/L (98-107); Estimated CRCL calculation 66 ml/min; Estimated Glomerular Filt Rate 50; Glucose 150 mg/dL (65-110); Magnesium 1.8 mg/dL (1.6-2.3); Potassium 4.3 mmol/L (3.4-5.0); Sodium 137 mmol/L (137-145)
[2024-06-15 07:11] LABS: Glucose Point of Care 169 mg/dl (65-105)
[2024-06-15] MEDS: ATORVASTATIN 40 MG TABLET 80 MG PO (08:08)
[2024-06-15] MEDS: metFORMIN HCL 500 MG TABLET 1000 MG PO ×2 (08:08→16:53)
[2024-06-15] MEDS: buPROPion HCL SR (12 HR) 150 MG TAB PO ×2 (08:09→16:53)
[2024-06-15] MEDS: ISOSORBIDE MONONITRATE 60 MG TAB.ER.24H 120 MG PO (08:09)
[2024-06-15] MEDS: amLODIPine BESYLATE 10 MG TABLET PO (08:10)
[2024-06-15] MEDS: ASPIRIN 81 MG CHEWABLE TABLET PO (08:10)
[2024-06-15] MEDS: EMPAGLIFLOZIN 10 MG TABLET PO (08:12)
[2024-06-15] MEDS: LOSARTAN POTASSIUM 100 MG TABLET PO (08:12)
[2024-06-15] MEDS: PANTOPRAZOLE 40 MG TABLET PO ×2 (08:12→16:53)
[2024-06-15] MEDS: carvediloL 12.5 MG TABLET PO ×2 (08:16→21:31)
[2024-06-15] MEDS: FUROSEMIDE 40 MG TABLET PO (08:16)
--- NOTE | 2024-06-15 10:41 | PM.PNCARD ---
Progress Note: A&P Assessment and Plan (1) Chest pain: Qualifiers: Chest pain type: unspecified Qualified Code(s): R07.9 - Chest pain, unspecified Code(s): R07.9 - Chest pain, unspecified Status: Acute (2) Coronary artery disease: Qualifiers: Coronary Disease-Associated Artery/Lesion type: [place] artery [place] vs. transplanted heart: [place] heart Associated angina: with other forms of angina Qualified Code(s): I25.118 - Atherosclerotic heart disease of [place] coronary artery with other forms of angina pectoris Code(s): I25.10 - Atherosclerotic heart disease of [place] coronary artery without angina pectoris Status: Acute (3) Chronic heart failure with preserved ejection fraction (HFpEF): Code(s): I50.32 - Chronic diastolic (congestive) heart failure Status: Acute (4) HTN (hypertension): Qualifiers: Hypertension type: primary hypertension Qualified Code(s): I10 - Essential (primary) hypertension Code(s): I10 - Essential (primary) hypertension Status: Chronic (5) HLD (hyperlipidemia): Qualifiers: Hyperlipidemia type: unspecified Qualified Code(s): E78.5 - Hyperlipidemia, unspecified Code(s): E78.5 - Hyperlipidemia, unspecified Status: Chronic Plan 64-year-old male with medical history of CAD status post LCX and LAD PCI in 2014, LAD stent in 2016, chronic diastolic heart failure, hypertension, peripheral vascular disease, CVA with left-sided weakness, DVT on Xarelto, hyperlipidemia, type 2 diabetes mellitus with diabetic peripheral neuropathy, COPD, obesity, obstructive sleep apnea on CPAP presents with with chief complaints of lightheadedness and chest pain. He has a left pectoral implantable surveillance system monitor. TTE in March 2024 showed normal LVEF of 65%, no regional wall motion abnormalities or significant valvular pathology. CAD status post PCI to proximal LAD and proximal LCX Chest pain-unstable angina with increasing frequency of chest pain episodes requiring more nitro to resolve and lasting for longer duration -negative troponin; EKG unchanged from before; chest x-ray no acute pathology -cardiac catheterization in a.m. tomorrow to evaluate IFR of mid LAD 60% stenosis and possible PCI -NPO at midnight. Hold losartan and Lasix prior to catheterization tomorrow morning -continue anti anginal meds including Coreg, Imdur, losartan, and amlodipine -continue aspirin -continue statin -check and replace electrolytes to keep K greater than 4 and Mg greater than 2 -TTE Lightheadedness: -monitor on telemetry; EKG shows sinus rhythm -evaluate loop recorder Hyperlipidemia -continue statin Hypertension -continue Coreg, amlodipine, losartan Chronic diastolic heart failure -continue Jardiance Subjective Date/time seen: 06/15/24 10:41 Interval history: Reason for encounter is: Chest pain, lightheadedness Relevant history:64-year-old male with medical history of CAD status post LCX and LAD PCI in 2015, LAD stent in 2016, chronic diastolic heart failure, hypertension, peripheral vascular disease, CVA with left-sided weakness, DVT on Xarelto, hyperlipidemia, type 2 diabetes mellitus with diabetic peripheral neuropathy, COPD, obesity, obstructive sleep apnea on CPAP presents with with chief complaints of lightheadedness and chest pain. TTE in March 2024 showed normal LVEF of 65%, no regional wall motion abnormalities or significant valvular pathology. Interval history: Patient had 1 episode of chest pain this morning relieved with pain meds. He has not needed any nitro since yesterday. No shortness of breath. Review of Systems Review of Systems: A complete review of systems was performed and negative other than those mentioned in the HPI Exam Narrative: General: Alert oriented x3, no acute distress Neck: Supple, no JVD Chest: Bilaterally clear to auscultation, no rales or rhonchi Cardiac: S1, S2 +, regular rate, regular rhythm, no murmurs or rubs Extremities: No pedal edema, no skin rash Neurologic: Alert and oriented x3, no focal neurological deficits Objective Data Vital Signs Vital Signs: Vital Signs - 24 hr 06/14/24 11:23 06/14/24 12:00 06/14/24 12:00 Temperature 36.4 C L Pulse Rate 76 82 Respiratory Rate 20 Blood Pressure 144/71 H Pulse Oximetry 96 96 Oxygen Delivery Room Air 06/14/24 14:00 06/14/24 16:00 06/14/24 16:00 Temperature 36.3 C L Pulse Rate 74 75 Respiratory Rate 16 Blood Pressure 113/64 Pulse Oximetry 98 98 Oxygen Delivery Room Air 06/14/24 16:00 06/14/24 18:00 06/14/24 19:19 Temperature 36.3 C L Pulse Rate 75 99 75 Respiratory Rate 18 Blood Pressure 113/69 Pulse Oximetry 97 Oxygen Delivery 06/14/24 20:00 06/14/24 20:00 06/14/24 22:00 Temperature Pulse Rate 78 71 Respiratory Rate Blood Pressure Pulse Oximetry Oxygen Delivery Room Air 06/14/24 23:00 06/14/24 23:22 06/14/24 23:50 Temperature Pulse Rate 75 Respiratory Rate 28 H 18 Blood Pressure 129/71 Pulse Oximetry 95 95 Oxygen Delivery CPAP Room Air 06/15/24 00:00 06/15/24 02:00 06/15/24 03:40 Temperature 36.7 C Pulse Rate 81 80 79 Respiratory Rate 18 Blood Pressure 112/41 L Pulse Oximetry 96 Oxygen Delivery 06/15/24 03:44 06/15/24 04:00 06/15/24 04:22 Temperature 36.7 C Pulse Rate 84 Respiratory Rate Blood Pressure 127/70 Pulse Oximetry Oxygen Delivery Room Air 06/15/24 06:00 06/15/24 07:34 06/15/24 08:00 Temperature 36.6 C Pulse Rate 79 76 Respiratory Rate 22 H Blood Pressure 119/67 Pulse Oximetry 95 95 Oxygen Delivery Room Air 06/15/24 08:16 Temperature Pulse Rate 91 Respiratory Rate Blood Pressure Pulse Oximetry Oxygen Delivery Intake/Output Intake/Output: Intake & Output 06/12/24 06/13/24 06/14/24 06/15/24 23:59 23:59 23:59 23:59 Intake Total 1510 800 Output Total 300 2690 152 Balance -300 -565 -725 Meds/Results Medications: Active Medications Generic Name Dose Route Start Last Admin Trade Name Freq PRN Reason Stop Dose Admin Acetaminophen 650 mg 06/13/24 21:42 06/14/24 13:56 Acetaminophen 325 Mg Tablet PO 650 mg Q6H PRN Administration Mild Pain (1-3) or Fever Albuterol 2 puff 06/13/24 22:55 Albuterol Sulfate (*Sp) Aerosol 1 Puff INHALATION Q4-6H PRN Shortness Of Breath Alprazolam 0.25 mg 06/13/24 22:55 06/14/24 21:01 Alprazolam (*Crx) 0.25 Mg Tablet PO 0.25 mg HS BUZZ Administration Amlodipine Besylate 10 mg 06/14/24 09:00 06/15/24 08:10 Amlodipine Besylate 10 Mg Tablet PO 10 mg DAILY BUZZ Administration Aspirin 81 mg 06/14/24 09:00 06/15/24 08:10 Aspirin 81 Mg Chewable Tablet PO 81 mg DAILY BUZZ Administration Atorvastatin Calcium 80 mg 06/14/24 09:00 06/15/24 08:08 Atorvastatin 40 Mg Tablet PO 80 mg DAILY BUZZ Administration Bupropion HCl 150 mg 06/13/24 23:00 06/15/24 08:09 Bupropion Hcl Sr (12 Hr) 150 Mg Tab PO 150 mg BID BUZZ Administration Carvedilol 12.5 mg 06/13/24 23:00 06/15/24 08:16 Carvedilol 12.5 Mg Tablet PO 12.5 mg Q12HR BUZZ Administration Dextrose 12.5 gm 06/13/24 21:42 Dextrose 50% 25 Gm/50 Ml Syringe IV PUSH PRN PRN Hypoglycemia Protocol Empagliflozin 10 mg 06/14/24 09:00 06/15/24 08:12 Empagliflozin 10 Mg Tablet PO 10 mg DAILY BUZZ Administration Furosemide 40 mg 06/14/24 09:00 06/15/24 08:16 Furosemide 40 Mg Tablet PO 40 mg DAILY BUZZ Administration Glucagon 1 mg 06/13/24 21:42 Glucagon For Inj 1 Mg Vial IM PRN PRN Hypoglycemia Protocol Glucose 15 gm 06/13/24 21:42 Glucose Oral Gel 15 Gm Of Glucse In 37.5 Gm Tube PO PRN PRN Hypoglycemia Protocol Dextrose 1,000 mls @ 100 mls/hr 06/13/24 21:42 Dextrose 5% 1,000 Ml IVPB PRN PRN Hypoglycemia Protocol Insulin Aspart 4 - 8 units 06/14/24 08:00 06/15/24 08:02 Insulin Aspart (*Bkc) 100 Units/Ml SUB-Q Not Given TIDWM COUNTS INCLUDE 234 BEDS AT THE [facility] Protocol Insulin Aspart 2 - 4 units 06/13/24 21:50 06/14/24 19:57 Insulin Aspart (*Bkc) 100 Units/Ml SUB-Q Not Given HS COUNTS INCLUDE 234 BEDS AT THE [facility] Protocol Isosorbide Mononitrate 120 mg 06/14/24 09:00 06/15/24 08:09 Isosorbide Mononitrate 60 Mg Tab.Er.24h PO 120 mg DAILY BUZZ Administration Loratadine 10 mg 06/13/24 22:55 Loratadine 10 Mg Tablet PO DAILY PRN allergy symptoms Losartan Potassium 100 mg 06/14/24 09:00 06/15/24 08:12 Losartan Potassium 100 Mg Tablet PO 100 mg DAILY BUZZ Administration Metformin HCl 1,000 mg 06/14/24 09:00 06/15/24 08:08 Metformin Hcl 500 Mg Tablet PO 1,000 mg BID BUZZ Administration Morphine Sulfate 4 mg 06/13/24 21:42 06/15/24 04:18 Morphine Sulfate (*Crx) 2 Mg/Ml Inj IV PUSH 4 mg Q4H PRN Administration Pain Rated 7-10 Nitroglycerin 0.4 mg 06/13/24 21:42 06/14/24 17:07 Nitroglycerin Sl 0.4 Mg Tablet SUBLINGUAL 0.4 mg Q5MIN PRN Administration Chest Pain Ondansetron HCl 4 mg 06/14/24 13:37 06/15/24 04:14 Ondansetron Inj 4 Mg/2 Ml Vial IV PUSH 4 mg Q6H PRN Administration Nausea And Vomiting Pantoprazole Sodium 40 mg 06/14/24 09:00 06/15/24 08:12 Pantoprazole 40 Mg Tablet PO 40 mg BID BUZZ Administration Perflutren Lipid Microsphere 0 ml 06/14/24 16:33 Perflutren Lipid Microspheres 1.5 Ml Vial Diluted To 10 Ml Total Volume IV PUSH 06/17/24 16:34 ONCE PRN adequate visualization Protocol Rivaroxaban 2.5 mg 06/14/24 17:45 06/14/24 18:20 Rivaroxaban 2.5 Mg Tablet PO 2.5 mg BID BUZZ Administration Tamsulosin HCl 0.4 mg 06/13/24 23:05 06/14/24 19:56 Tamsulosin Hcl 0.4 Mg Capsule PO 0.4 mg HS BUZZ Administration Radiology Results: ITS Impressions Chest X-Ray 06/13/24 13:24 IMPRESSION: 1. No acute cardiopulmonary disease. Head CT 06/14/24 11:22 Impression: No acute intracranial hemorrhage or suspicious mass effect. Abdomen X-Ray 06/14/24 14:30 IMPRESSION: 1: No acute abdominal abnormality identified. Labs Labs: Laboratory Results - last 24 hr 06/14/24 06/14/24 06/14/24 03:57 11:21 16:16 WBC 6.6 RBC 4.18 L Hgb 12.8 L Hct 39.8 L MCV 95.2 MCH 30.6 MCHC 32.2 RDW 14.1 Plt Count 114 L MPV 11.7 H % Immature Plt Fraction Sodium Potassium Chloride Carbon Dioxide Anion Gap BUN Creatinine Estim Creat Clear Calc Estimated GFR Glucose POC Capillary Glucose 265 H 170 H Calcium Magnesium 06/14/24 06/15/24 06/15/24 19:56 03:48 07:03 WBC 6.4 RBC 4.34 L Hgb 13.1 L Hct 39.8 L MCV 91.7 MCH 30.2 MCHC 32.9 RDW 13.4 Plt Count 118 L MPV 11.4 H % Immature Plt Fraction 6.5 Sodium 137 Potassium 4.3 Chloride 101 Carbon Dioxide 24 Anion Gap 12 BUN 25 H Creatinine 1.42 H Estim Creat Clear Calc 66 Estimated GFR 50 L Glucose 150 H POC Capillary Glucose 187 H 169 H Calcium 9.0 Magnesium 1.8
[2024-06-15 11:10] LABS: Glucose Point of Care 157 mg/dl (65-105)
[2024-06-15] MEDS: PERFLUTREN LIPID MICROSPHERES 1.5 ML VIAL DILUTED TO 10 ML TOTAL VOLUME IV PUSH (11:25)
--- NOTE | 2024-06-15 11:45 | IVDEFINITY ---
Prior to administration of IV Definity the patient was educated on the risks and benefits of the imaging enhancing agent including potential adverse side effects. The patient verbalized understanding. Allergies were verified. No exclusion criteria were identified and at least one of the following inclusion criteria were met: 1) physician request, 2) patient technically difficult to image (per the [place] [employer] guidelines of two or more segments not discernable within the apical view), or 3) questionable left ventricular function. ?
--- NOTE | 2024-06-15 16:18 | PC.NURSE ---
Complains of persistent nausea. Reports I'm seeing stars. Nausea is evolving into sharp intermittent abdominal pains. BP 115/64. BG 133. Dr. Nolen made aware. Reports she will assess pt at bedside.
[2024-06-15 16:22] LABS: Glucose Point of Care 133 mg/dl (65-105)
--- NOTE | 2024-06-15 16:29 | ECG_ITS ---
Test Date: 2024-06-15 16:35:28 Measurements Intervals [place] Rate: 82 P: 21 TN: 162 QRS: 42 QRSD: 161 T: 28 QT: 405 QTc: 475 Interpretive Statements SINUS RHYTHM RIGHT BUNDLE BRANCH BLOCK CONSIDER INFERIOR INFARCT, AGE INDETERMINATE ABNORMAL ECG Compared to ECG 06/14/2024 17:32:09 NO SIGNIFICANT CHANGE Electronically Signed On 06-15-2024 19:52:34 CDT by Mathew Landon D.O.
[2024-06-15] MEDS: SODIUM CHLORIDE 0.9% IV 1,000 ML 125 ML IV CONT (16:55)
[2024-06-15 17:25] LABS: Troponin I < 0.012 ng/mL (0.000-0.034)
--- NOTE | 2024-06-15 18:16 | PM.IMPN ---
Progress Note: A&P Assessment and Plan (1) Chest pain: Qualifiers: Chest pain type: unspecified Qualified Code(s): R07.9 - Chest pain, unspecified Code(s): R07.9 - Chest pain, unspecified Status: Acute (2) Chronic heart failure with preserved ejection fraction (HFpEF): Code(s): I50.32 - Chronic diastolic (congestive) heart failure Status: Acute (3) Hypertension: Code(s): I10 - Essential (primary) hypertension Status: Acute (4) Type 2 diabetes mellitus: Qualifiers: Diabetes mellitus intermediate insulin use: with intermediate use Diabetes mellitus complication status: with neurologic complications Diabetes mellitus complication detail: with unspecified neuropathy Qualified Code(s): E11.40 - Type 2 diabetes mellitus with diabetic neuropathy, unspecified; Z79.4 - senior care (current) use of insulin Code(s): E11.9 - Type 2 diabetes mellitus without complications Status: Acute (5) Chronic anticoagulation: Code(s): Z79.01 - senior care (current) use of anticoagulants Status: Chronic (6) Obstructive sleep apnea on CPAP: Code(s): G47.33 - Obstructive sleep apnea (adult) (pediatric); Z99.89 - Dependence on other enabling machines and devices Status: Acute Plan The patient presented to the emergency department for evaluation of chest pain as detailed in HPI. Labs, imaging, EKG, and all reports were personally reviewed. Cardiac catheterization done in early April showed moderate coronary disease for which maximal medical therapy was recommended. The chest discomfort he has been having is typical of his angina and has improved with nitro. He is already on amlodipine, isosorbide mononitrate, and carvedilol. He was on ranolazine in the past but stopped taking that due to side effects however due to recurrent angina it may be prudent to restart this medication. Cardiology has been consulted for their opinion as well. He appears euvolemic on examination. Blood pressures are stable. Initiate sliding scale insulin, Accu-Cheks, and hypoglycemic protocol. CPAP will be provided for the patient to use while hospitalized. His medications will be reviewed and resumed as appropriate. Findings and treatment plan were discussed with the patient. Questions were solicited and answered to satisfaction. The patient's medical management will be taken over by the hospitalist team in a.m. Morbidly obese patient with history of CAD presented with CP and light headedness, 3 sets of cardiac enzymes are negative, and no acute change seen on EKG seen by safety assistant, patient had a similar presentation recently in April and cardiac echo did not show any abnormalities and no further cardiac workup was recommended similarly safety assistant is recommending to monitor, today safety assistant recommended cardiac cath to further evaluate patient c/o CP to further evaluate c/o light headedness weakness of upper extremities CT scan was done and its normal and MRI of the brain as well did not any acute changes in the brain, will monitor and further recommendation to follow. Subjective Date/time seen: 06/15/24 18:16 Interval history: Chief Complaint: H&P-Chest pain. Narrative: This is a pleasant 64-year-old male with history of stroke, diabetes, coronary artery disease, peripheral vascular disease, congestive heart failure, and several other comorbidities who presented to the emergency department for evaluation of chest pain. He was admitted to the hospital in early April with chest pain and cardiac catheterization at that time showed [id number] disease for which medical management was recommended. He has been doing well since that time and has not had chest pain until today. He got up sometime this morning to use the restroom and when he returned to bed he developed pressure-like discomfort in the mid chest radiating into the left arm and up into the neck and head. He was feeling short of breath at that time with nausea as well. The discomfort improved with nitroglycerin x3. Since arrival to the ED he has continued to have intermittent pressure though is feeling much better. He denies syncope but reports having episodes of lightheadedness and dizziness upon standing on Thursday though not today. He also denies fever, cold and flu symptoms, pleuritic pain, palpitations, current shortness of breath, cough, abdominal pain, vomiting, diarrhea, lower extremity edema, and calf pain. Morbidly obese patient with history of CAD presented with CP and light headedness, 3 sets of cardiac enzymes are negative, and no acute change seen on EKG seen by safety assistant, patient had a similar presentation recently in April and cardiac echo did not show any abnormalities and no further cardiac workup was recommended similarly safety assistant is recommending to monitor, today safety assistant recommended cardiac cath to further evaluate patient c/o CP to further evaluate c/o light headedness weakness of upper extremities CT scan was done and its normal and MRI of the brain as well did not any acute changes in the brain, will monitor and further recommendation to follow. Review of Systems Review of Systems: 12 systems were reviewed and are negative except for as per HPI. Exam Narrative: Patient is comfortable, NAD HEENT: eyes are clear and none icteric LUNGS:CTA HEART: RR S1S2 ABD: BS+, Soft and nontender Lower extremities: no edema SKIN: nonjaundiced Neuro: grossly intact. Objective Data Vital Signs Vital Signs: Vital Signs - 24 hr 06/14/24 19:19 06/14/24 20:00 06/14/24 20:00 Temperature 36.3 C L Pulse Rate 75 78 Respiratory Rate 18 Blood Pressure 113/69 Pulse Oximetry 97 Oxygen Delivery Room Air 06/14/24 22:00 06/14/24 23:00 06/14/24 23:22 Temperature Pulse Rate 71 75 Respiratory Rate 28 H 18 Blood Pressure 129/71 Pulse Oximetry 95 Oxygen Delivery CPAP 06/14/24 23:50 06/15/24 00:00 06/15/24 02:00 Temperature Pulse Rate 81 80 Respiratory Rate Blood Pressure Pulse Oximetry 95 Oxygen Delivery Room Air 06/15/24 03:40 06/15/24 03:44 06/15/24 04:00 Temperature 36.7 C Pulse Rate 79 84 Respiratory Rate 18 Blood Pressure 112/41 L Pulse Oximetry 96 Oxygen Delivery Room Air 06/15/24 04:22 06/15/24 06:00 06/15/24 07:34 Temperature 36.7 C 36.6 C Pulse Rate 79 76 Respiratory Rate 22 H Blood Pressure 127/70 119/67 Pulse Oximetry 95 Oxygen Delivery 06/15/24 08:00 06/15/24 08:00 06/15/24 08:16 Temperature Pulse Rate 75 91 Respiratory Rate Blood Pressure Pulse Oximetry 95 Oxygen Delivery Room Air 06/15/24 12:00 06/15/24 12:00 06/15/24 12:00 Temperature 36.7 C Pulse Rate 82 80 Respiratory Rate 22 H Blood Pressure 94/57 L Pulse Oximetry 95 96 Oxygen Delivery Room Air 06/15/24 14:00 06/15/24 16:00 06/15/24 16:00 Temperature 36.3 C L Pulse Rate 74 79 82 Respiratory Rate 24 H Blood Pressure 115/64 Pulse Oximetry 97 Oxygen Delivery 06/15/24 18:00 Temperature Pulse Rate 83 Respiratory Rate Blood Pressure Pulse Oximetry Oxygen Delivery Intake/Output Intake/Output: Intake & Output 06/12/24 06/13/24 06/14/24 06/15/24 23:59 23:59 23:59 23:59 Intake Total 1510 1040 Output Total 300 0801 1960 Balance -401 -133 -4158 Meds/Results Medications: Active Medications Generic Name Dose Route Start Last Admin Trade Name Freq PRN Reason Stop Dose Admin Acetaminophen 650 mg 06/13/24 21:42 06/14/24 13:56 Acetaminophen 325 Mg Tablet PO 650 mg Q6H PRN Administration Mild Pain (1-3) or Fever Albuterol 2 puff 06/13/24 22:55 Albuterol Sulfate (*Sp) Aerosol 1 Puff INHALATION Q4-6H PRN Shortness Of Breath Alprazolam 0.25 mg 06/13/24 22:55 06/14/24 21:01 Alprazolam (*Crx) 0.25 Mg Tablet PO 0.25 mg HS BUZZ Administration Amlodipine Besylate 10 mg 06/14/24 09:00 06/15/24 08:10 Amlodipine Besylate 10 Mg Tablet PO 10 mg DAILY BUZZ Administration Aspirin 81 mg 06/14/24 09:00 06/15/24 08:10 Aspirin 81 Mg Chewable Tablet PO 81 mg DAILY BUZZ Administration Atorvastatin Calcium 80 mg 06/14/24 09:00 06/15/24 08:08 Atorvastatin 40 Mg Tablet PO 80 mg DAILY BUZZ Administration Bupropion HCl 150 mg 06/13/24 23:00 06/15/24 16:53 Bupropion Hcl Sr (12 Hr) 150 Mg Tab PO 150 mg BID BUZZ Administration Carvedilol 12.5 mg 06/13/24 23:00 06/15/24 08:16 Carvedilol 12.5 Mg Tablet PO 12.5 mg Q12HR BUZZ Administration Dextrose 12.5 gm 06/13/24 21:42 Dextrose 50% 25 Gm/50 Ml Syringe IV PUSH PRN PRN Hypoglycemia Protocol Empagliflozin 10 mg 06/14/24 09:00 06/15/24 08:12 Empagliflozin 10 Mg Tablet PO 10 mg DAILY BUZZ Administration Furosemide 40 mg 06/14/24 09:00 06/15/24 08:16 Furosemide 40 Mg Tablet PO 40 mg DAILY BUZZ Administration Glucagon 1 mg 06/13/24 21:42 Glucagon For Inj 1 Mg Vial IM PRN PRN Hypoglycemia Protocol Glucose 15 gm 06/13/24 21:42 Glucose Oral Gel 15 Gm Of Glucse In 37.5 Gm Tube PO PRN PRN Hypoglycemia Protocol Dextrose 1,000 mls @ 100 mls/hr 06/13/24 21:42 Dextrose 5% 1,000 Ml IVPB PRN PRN Hypoglycemia Protocol Sodium Chloride 1,000 mls @ 125 mls/hr 06/15/24 16:50 06/15/24 16:55 Normal Saline Iv IV CONT 06/16/24 00:49 125 mls/hr .Q8H ONE Administration Insulin Aspart 4 - 8 units 06/14/24 08:00 06/15/24 16:54 Insulin Aspart (*Bkc) 100 Units/Ml SUB-Q Not Given TIDWM BUZZ Protocol Insulin Aspart 2 - 4 units 06/13/24 21:50 06/14/24 19:57 Insulin Aspart (*Bkc) 100 Units/Ml SUB-Q Not Given HS [facility] [place] Protocol Isosorbide Mononitrate 120 mg 06/14/24 09:00 06/15/24 08:09 Isosorbide Mononitrate 60 Mg Tab.Er.24h PO 120 mg DAILY BUZZ Administration Loratadine 10 mg 06/13/24 22:55 Loratadine 10 Mg Tablet PO DAILY PRN allergy symptoms Losartan Potassium 100 mg 06/14/24 09:00 06/15/24 08:12 Losartan Potassium 100 Mg Tablet PO 100 mg DAILY BUZZ Administration Metformin HCl 1,000 mg 06/14/24 09:00 06/15/24 16:53 Metformin Hcl 500 Mg Tablet PO 1,000 mg BID BUZZ Administration Morphine Sulfate 4 mg 06/13/24 21:42 06/15/24 04:18 Morphine Sulfate (*Crx) 2 Mg/Ml Inj IV PUSH 4 mg Q4H PRN Administration Pain Rated 7-10 Nitroglycerin 0.4 mg 06/13/24 21:42 06/14/24 17:07 Nitroglycerin Sl 0.4 Mg Tablet SUBLINGUAL 0.4 mg Q5MIN PRN Administration Chest Pain Ondansetron HCl 4 mg 06/14/24 13:37 06/15/24 13:55 Ondansetron Inj 4 Mg/2 Ml Vial IV PUSH 4 mg Q6H PRN Administration Nausea And Vomiting Pantoprazole Sodium 40 mg 06/14/24 09:00 06/15/24 16:53 Pantoprazole 40 Mg Tablet PO 40 mg BID BUZZ Administration Rivaroxaban 2.5 mg 06/14/24 17:45 06/14/24 18:20 Rivaroxaban 2.5 Mg Tablet PO 2.5 mg BID BUZZ Administration Tamsulosin HCl 0.4 mg 06/13/24 23:05 06/14/24 19:56 Tamsulosin Hcl 0.4 Mg Capsule PO 0.4 mg HS BUZZ Administration Radiology Results: ITS Impressions Chest X-Ray 06/13/24 13:24 IMPRESSION: 1. No acute cardiopulmonary disease. Head CT 06/14/24 11:22 Impression: No acute intracranial hemorrhage or suspicious mass effect. Abdomen X-Ray 06/14/24 14:30 IMPRESSION: 1: No acute abdominal abnormality identified. Brain MRI 06/15/24 11:39 IMPRESSION: 1. Small old lacunar infarct in the right frontoparietal periventricular white matter. No acute intracranial process. 2. Additional scattered periventricular predominant nonspecific white matter T2 hyperintensity which within normal limits for age and consistent with chronic small vessel ischemic disease. Labs Labs: Laboratory Results - last 24 hr 06/14/24 06/15/24 06/15/24 19:56 03:48 07:03 WBC 6.4 RBC 4.34 L Hgb 13.1 L Hct 39.8 L MCV 91.7 MCH 30.2 MCHC 32.9 RDW 13.4 Plt Count 118 L MPV 11.4 H % Immature Plt Fraction 6.5 Sodium 137 Potassium 4.3 Chloride 101 Carbon Dioxide 24 Anion Gap 12 BUN 25 H Creatinine 1.42 H Estim Creat Clear Calc 66 Estimated GFR 50 L Glucose 150 H POC Capillary Glucose 187 H 169 H Calcium 9.0 Magnesium 1.8 Troponin I 06/15/24 06/15/24 06/15/24 11:07 16:19 16:42 WBC RBC Hgb Hct MCV MCH MCHC RDW Plt Count MPV % Immature Plt Fraction Sodium Potassium Chloride Carbon Dioxide Anion Gap BUN Creatinine Estim Creat Clear Calc Estimated GFR Glucose POC Capillary Glucose 157 H 133 H Calcium Magnesium Troponin I < 0.012 Quality VTE Prophylaxis VTE prophylaxis: pharmacologic ordered (on rivaroxaban)
[2024-06-15] MEDS: ALPRAZolam (*CRX) 0.25 MG TABLET PO (21:31)
[2024-06-15] MEDS: TAMSULOSIN HCL 0.4 MG CAPSULE PO (21:31)
[2024-06-16] VITALS (28 sets, daily range): BP systolic 91–145; BP diastolic 56–91; PULSE 73–82; RESP 10–20; TEMP 36.3–36.8; O2SAT 95–98
[2024-06-16 04:18] LABS: Hematocrit 39.4 % (42.0-52.0); Hemoglobin 13.3 g/dL (14.0-18.0); Immature Platelet Fraction Pct 6.2 % (0.9-11.2); Mean Corpuscular HGB Conc 33.8 g/dl (32-36); Mean Corpuscular Hemoglobin 30.4 pg (26-34); Mean Platelet Volume 11.2 fl (7.4-10.4); Platelet Count Result 115 k/mm3 (150-375); Red Blood Count 4.38 M/mm3 (4.6-6.20); Red Cell Distribution Width 13.3 % (11.5-14.5); White Blood Count 6.8 K/mm3 (4.5-10.0)
[2024-06-16 04:35] LABS: Anion Gap 11 mmol/L (4-12); Blood Urea Nitrogen 24 mg/dL (9-20); Calcium 8.7 mg/dL (8.4-10.2); Carbon Dioxide 22 mmol/L (22-30); Chloride 103 mmol/L (98-107); Estimated CRCL calculation 66 ml/min; Estimated Glomerular Filt Rate 49; Glucose 116 mg/dL (65-110); Magnesium 1.7 mg/dL (1.6-2.3); Potassium 4.3 mmol/L (3.4-5.0); Sodium 136 mmol/L (137-145)
[2024-06-16 07:39] LABS: Glucose Point of Care 140 mg/dl (65-105)
[2024-06-16] MEDS: ATORVASTATIN 40 MG TABLET 80 MG PO (08:15)
[2024-06-16] MEDS: buPROPion HCL SR (12 HR) 150 MG TAB PO ×2 (08:16→17:47)
[2024-06-16] MEDS: EMPAGLIFLOZIN 10 MG TABLET PO (08:16)
[2024-06-16] MEDS: metFORMIN HCL 500 MG TABLET 1000 MG PO ×2 (08:19→17:47)
[2024-06-16] MEDS: PANTOPRAZOLE 40 MG TABLET PO ×2 (08:19→17:47)
[2024-06-16] MEDS: ISOSORBIDE MONONITRATE 60 MG TAB.ER.24H 120 MG PO (09:36)
[2024-06-16] MEDS: amLODIPine BESYLATE 10 MG TABLET PO (09:36)
[2024-06-16] MEDS: ASPIRIN 81 MG CHEWABLE TABLET PO (09:36)
[2024-06-16] MEDS: carvediloL 12.5 MG TABLET PO ×2 (09:37→22:00)
[2024-06-16 11:44] LABS: Glucose Point of Care 123 mg/dl (65-105)
--- NOTE | 2024-06-16 11:55 | PC.NURSE ---
pt taken down for cath
--- NOTE | 2024-06-16 11:57 | P.PNCA_ITS ---
Progress Note: A&P Assessment and Plan (1) Chest pain: Qualifiers: Chest pain type: unspecified Qualified Code(s): R07.9 - Chest pain, unspecified Code(s): R07.9 - Chest pain, unspecified Status: Acute (2) Coronary artery disease: Qualifiers: Associated angina: with other forms of angina Coronary Disease- Associated Artery/Lesion type: [place] artery [place] vs. transplanted heart: [place] heart Qualified Code(s): I25.118 - Atherosclerotic heart disease of [place] coronary artery with other forms of angina pectoris Code(s): I25.10 - Atherosclerotic heart disease of [place] coronary artery without angina pectoris Status: Acute (3) Chronic heart failure with preserved ejection fraction (HFpEF): Code(s): I50.32 - Chronic diastolic (congestive) heart failure Status: Acute (4) HTN (hypertension): Qualifiers: Hypertension type: primary hypertension Qualified Code(s): I10 - Essential (primary) hypertension Code(s): I10 - Essential (primary) hypertension Status: Chronic (5) HLD (hyperlipidemia): Qualifiers: Hyperlipidemia type: unspecified Qualified Code(s): E78.5 - Hyperlipidemia, unspecified Code(s): E78.5 - Hyperlipidemia, unspecified Status: Chronic Plan 64-year-old male with medical history of CAD status post LCX and LAD PCI in 2015, LAD stent in 2016, chronic diastolic heart failure, hypertension, peripheral vascular disease, CVA with left-sided weakness, DVT on Xarelto, hyperlipidemia, type 2 diabetes mellitus with diabetic peripheral neuropathy, COPD, obesity, obstructive sleep apnea on CPAP presents with with chief complaints of lightheadedness and chest pain. 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 TTE shows normal LVEF and no significant valvular pathology. CAD status post PCI to proximal LAD and proximal LCX Chest pain-unstable angina with increasing frequency of chest pain episodes requiring more nitro to resolve and lasting for longer duration -negative troponin; EKG unchanged from before; chest x-ray no acute pathology -cardiac catheterization in today to evaluate IFR of mid LAD 60% stenosis and possible PCI -Hold losartan and Lasix prior to catheterization -continue anti anginal meds including Coreg, Imdur, losartan, and amlodipine -continue aspirin -continue statin -check and replace electrolytes to keep K greater than 4 and Mg greater than 2 Lightheadedness: -monitor on telemetry; EKG shows sinus rhythm -evaluate loop recorder Hyperlipidemia -continue statin Hypertension -continue Coreg, amlodipine, losartan Chronic diastolic heart failure -continue Jardiance Subjective Date/time seen: 06/16/24 11:57 Interval history: Reason for encounter is: Chest pain, lightheadedness Relevant history:64-year-old male with medical history of CAD status post LCX and LAD PCI in 2015, LAD stent in 2016, chronic diastolic heart failure, hypertension, peripheral vascular disease, CVA with left-sided weakness, DVT on Xarelto, hyperlipidemia, type 2 diabetes mellitus with diabetic peripheral neuropathy, COPD, obesity, obstructive sleep apnea on CPAP presents with with chief complaints of lightheadedness and chest pain. TTE shows normal LVEF of 60-65% and no significant valvular pathology. No regional wall motion abnormalities. Interval history: Patient reports some nausea and abdominal pain since last night which was resolved with Zofran. He does have some abdominal discomfort this morning but no nausea. No chest pain. Review of Systems Review of Systems: A complete review of systems was performed and negative other than those mentioned in the HPI Exam Narrative: General: Alert oriented x3, no acute distress Neck: Supple, no JVD Chest: Bilaterally clear to auscultation, no rales or rhonchi Cardiac: S1, S2 +, regular rate, regular rhythm, no murmurs or rubs Extremities: No pedal edema, no skin rash Neurologic: Alert and oriented x3, no focal neurological deficits Objective Data Vital Signs Vital Signs: Vital Signs - 24 hr 06/15/24 12:00 06/15/24 12:00 06/15/24 12:00 Temperature 36.7 C Pulse Rate 82 80 Respiratory Rate 22 H Blood Pressure 94/57 L Pulse Oximetry 95 96 Oxygen Delivery Room Air 06/15/24 14:00 06/15/24 16:00 06/15/24 16:00 Temperature 36.3 C L Pulse Rate 74 79 82 Respiratory Rate 24 H Blood Pressure 115/64 Pulse Oximetry 97 Oxygen Delivery 06/15/24 16:00 06/15/24 18:00 06/15/24 20:00 Temperature 36.4 C Pulse Rate 83 80 Respiratory Rate 18 Blood Pressure 118/66 Pulse Oximetry 97 98 Oxygen Delivery Room Air 06/15/24 20:00 06/15/24 20:00 06/15/24 22:00 Temperature Pulse Rate 86 79 Respiratory Rate Blood Pressure Pulse Oximetry Oxygen Delivery Room Air 06/15/24 23:17 06/16/24 00:00 06/16/24 00:00 Temperature 36.7 C Pulse Rate 76 73 Respiratory Rate 18 Blood Pressure 130/40 L Pulse Oximetry 98 Oxygen Delivery Room Air 06/16/24 02:00 06/16/24 02:15 06/16/24 04:00 Temperature Pulse Rate 76 77 Respiratory Rate Blood Pressure Pulse Oximetry Oxygen Delivery CPAP 06/16/24 04:00 06/16/24 04:00 06/16/24 06:00 Temperature 36.7 C Pulse Rate 77 77 Respiratory Rate 18 Blood Pressure 145/70 H Pulse Oximetry 98 97 Oxygen Delivery CPAP 06/16/24 08:00 06/16/24 08:00 06/16/24 09:37 Temperature 36.7 C Pulse Rate 77 78 76 Respiratory Rate 16 Blood Pressure 141/80 H Pulse Oximetry 97 Oxygen Delivery 06/16/24 10:00 06/16/24 11:44 Temperature 36.5 C Pulse Rate 79 76 Respiratory Rate 20 Blood Pressure 132/73 Pulse Oximetry 95 Oxygen Delivery Intake/Output Intake/Output: Intake & Output 06/13/24 06/14/24 06/15/24 06/16/24 23:59 23:59 23:59 23:59 Intake Total 1510 1040 Output Total 300 5622 5135 8207 Balance -300 -565 -1335 -1500 Meds/Results Medications: Active Medications Generic Name Dose Route Start Last Admin Trade Name Freq PRN Reason Stop Dose Admin Acetaminophen 650 mg 06/13/24 21:42 06/14/24 13:56 Acetaminophen 325 Mg Tablet PO 650 mg Q6H PRN Administration Mild Pain (1-3) or Fever Albuterol 2 puff 06/13/24 22:55 Albuterol Sulfate (*Sp) Aerosol 1 Puff INHALATION Q4-6H PRN Shortness Of Breath Alprazolam 0.25 mg 06/13/24 22:55 06/15/24 21:31 Alprazolam (*Crx) 0.25 Mg Tablet PO 0.25 mg HS BUZZ Administration Amlodipine Besylate 10 mg 06/14/24 09:00 06/16/24 09:36 Amlodipine Besylate 10 Mg Tablet PO 10 mg DAILY BUZZ Administration Aspirin 81 mg 06/14/24 09:00 06/16/24 09:36 Aspirin 81 Mg Chewable Tablet PO 81 mg DAILY BUZZ Administration Atorvastatin Calcium 80 mg 06/14/24 09:00 06/16/24 08:15 Atorvastatin 40 Mg Tablet PO 80 mg DAILY BUZZ Administration Bupropion HCl 150 mg 06/13/24 23:00 06/16/24 08:16 Bupropion Hcl Sr (12 Hr) 150 Mg Tab PO 150 mg BID BUZZ Administration Carvedilol 12.5 mg 06/13/24 23:00 06/16/24 09:37 Carvedilol 12.5 Mg Tablet PO 12.5 mg Q12HR BUZZ Administration Dextrose 12.5 gm 06/13/24 21:42 Dextrose 50% 25 Gm/50 Ml Syringe IV PUSH PRN PRN Hypoglycemia Protocol Empagliflozin 10 mg 06/14/24 09:00 06/16/24 08:16 Empagliflozin 10 Mg Tablet PO 10 mg DAILY BUZZ Administration Furosemide 40 mg 06/14/24 09:00 06/15/24 08:16 Furosemide 40 Mg Tablet PO 40 mg DAILY BUZZ Administration Glucagon 1 mg 06/13/24 21:42 Glucagon For Inj 1 Mg Vial IM PRN PRN Hypoglycemia Protocol Glucose 15 gm 06/13/24 21:42 Glucose Oral Gel 15 Gm Of Glucse In 37.5 Gm Tube PO PRN PRN Hypoglycemia Protocol Dextrose 1,000 mls @ 100 mls/hr 06/13/24 21:42 Dextrose 5% 1,000 Ml IVPB PRN PRN Hypoglycemia Protocol Insulin Aspart 4 - 8 units 06/14/24 08:00 06/16/24 08:09 Insulin Aspart (*Bkc) 100 Units/Ml SUB-Q Not Given TIDWM [facility] Protocol Insulin Aspart 2 - 4 units 06/13/24 21:50 06/15/24 20:08 Insulin Aspart (*Bkc) 100 Units/Ml SUB-Q Not Given HS [facility] Protocol Isosorbide Mononitrate 120 mg 06/14/24 09:00 06/16/24 09:36 Isosorbide Mononitrate 60 Mg Tab.Er.24h PO 120 mg DAILY BUZZ Administration Loratadine 10 mg 06/13/24 22:55 Loratadine 10 Mg Tablet PO DAILY PRN allergy symptoms Losartan Potassium 100 mg 06/14/24 09:00 06/15/24 08:12 Losartan Potassium 100 Mg Tablet PO 100 mg DAILY BUZZ Administration Metformin HCl 1,000 mg 06/14/24 09:00 06/16/24 08:19 Metformin Hcl 500 Mg Tablet PO 1,000 mg BID BUZZ Administration Morphine Sulfate 4 mg 06/13/24 21:42 06/15/24 04:18 Morphine Sulfate (*Crx) 2 Mg/Ml Inj IV PUSH 4 mg Q4H PRN Administration Pain Rated 7-10 Nitroglycerin 0.4 mg 06/13/24 21:42 06/14/24 17:07 Nitroglycerin Sl 0.4 Mg Tablet SUBLINGUAL 0.4 mg Q5MIN PRN Administration Chest Pain Ondansetron HCl 4 mg 06/14/24 13:37 06/15/24 21:34 Ondansetron Inj 4 Mg/2 Ml Vial IV PUSH 4 mg Q6H PRN Administration Nausea And Vomiting Pantoprazole Sodium 40 mg 06/14/24 09:00 06/16/24 08:19 Pantoprazole 40 Mg Tablet PO 40 mg BID BUZZ Administration Rivaroxaban 2.5 mg 06/14/24 17:45 06/14/24 18:20 Rivaroxaban 2.5 Mg Tablet PO 2.5 mg BID BUZZ Administration Tamsulosin HCl 0.4 mg 06/13/24 23:05 06/15/24 21:31 Tamsulosin Hcl 0.4 Mg Capsule PO 0.4 mg HS BUZZ Administration Radiology Results: ITS Impressions Chest X-Ray 06/13/24 13:24 IMPRESSION: 1. No acute cardiopulmonary disease. Head CT 06/14/24 11:22 Impression: No acute intracranial hemorrhage or suspicious mass effect. Abdomen X-Ray 06/14/24 14:30 IMPRESSION: 1: No acute abdominal abnormality identified. Brain MRI 06/15/24 11:39 IMPRESSION: 1. Small old lacunar infarct in the right frontoparietal periventricular white matter. No acute intracranial process. 2. Additional scattered periventricular predominant nonspecific white matter T2 hyperintensity which within normal limits for age and consistent with chronic small vessel ischemic disease. Labs Labs: Laboratory Results - last 24 hr 06/15/24 06/15/24 06/16/24 16:19 16:42 03:54 WBC 6.8 RBC 4.38 L Hgb 13.3 L Hct 39.4 L MCV 90.0 MCH 30.4 MCHC 33.8 RDW 13.3 Plt Count 115 L MPV 11.2 H % Immature Plt Fraction 6.2 Sodium 136 L Potassium 4.3 Chloride 103 Carbon Dioxide 22 Anion Gap 11 BUN 24 H Creatinine 1.45 H Estim Creat Clear Calc 66 Estimated GFR 49 L Glucose 116 H POC Capillary Glucose 133 H Calcium 8.7 Magnesium 1.7 Troponin I < 0.012 06/16/24 06/16/24 07:31 11:38 WBC RBC Hgb Hct MCV MCH MCHC RDW Plt Count MPV % Immature Plt Fraction Sodium Potassium Chloride Carbon Dioxide Anion Gap BUN Creatinine Estim Creat Clear Calc Estimated GFR Glucose POC Capillary Glucose 140 H 123 H Calcium Magnesium Troponin I Imaging My impression: TTE shows normal LVEF of 60-65% with no regional wall motion abnormalities. No significant valvular pathology.
--- NOTE | 2024-06-16 11:58 | P.SEDATION_ITS ---
Moderate Sedation Note-Pt Data Patient Data Allergies Allergy/AdvReac Type Severity Reaction Status Date / Time No Known Allergies Allergy Unknown Verified 06/13/24 12:37 Home Medications ?Medication ?Instructions ?Recorded ?Confirmed ?Type amlodipine 10 mg tablet 10 mg PO DAILY 01/24/19 06/13/24 History bupropion HCl 150 mg tablet,12 hr 150 mg PO BID 01/24/19 06/13/24 History sustained-release (Wellbutrin SR) metformin 1,000 mg tablet 1,000 mg PO BID 01/24/19 06/13/24 History albuterol sulfate 90 mcg/actuation 2 puff inhalation Q4-6H PRN 01/09/20 06/13/24 History aerosol inhaler (Ventolin HFA) Shortness Of Breath isosorbide mononitrate 60 mg 120 mg PO DAILY 01/09/20 06/13/24 History tablet,extended release 24 hr loratadine 10 mg tablet (Claritin) 10 mg PO DAILY PRN allergy symptoms 03/15/20 06/13/24 History alprazolam 0.25 mg tablet 0.25 mg PO HS 08/21/21 06/13/24 History aspirin 81 mg chewable tablet 81 mg PO DAILY 09/29/21 06/13/24 History (Children's Aspirin) albuterol sulfate 90 mcg/actuation 2 puff inhalation Q4-6H PRN 02/25/24 06/13/24 Rx aerosol inhaler shortness of breath or wheezing 30 days #8.5 grams losartan 100 mg tablet 100 mg PO DAILY 05/02/24 06/13/24 History carvedilol 12.5 mg tablet (Coreg) 12.5 mg PO Q12HR #60 tabs 05/04/24 06/13/24 Rx empagliflozin 10 mg tablet 10 mg PO DAILY #30 tabs 05/04/24 06/13/24 Rx (Jardiance) nitroglycerin 0.4 mg sublingual 0.4 mg sublingual Q5MIN PRN Chest 05/04/24 06/13/24 Rx tablet (Nitrostat) Pain #26 tabs omeprazole 40 mg capsule,delayed 40 mg PO DAILY #30 caps 05/04/24 06/13/24 Rx release rivaroxaban 2.5 mg tablet (Xarelto) 2.5 mg PO BID #30 tabs 05/04/24 06/13/24 Rx tamsulosin 0.4 mg capsule 0.4 mg PO HS #30 caps 05/04/24 06/13/24 Rx atorvastatin 80 mg tablet 80 mg PO DAILY 06/13/24 06/13/24 History cyclobenzaprine 10 mg tablet 10 mg PO Q8H PRN muscle spasm 06/13/24 06/13/24 History dulaglutide 3 mg/0.5 mL 3 mg subcut WEEKLY 06/13/24 06/13/24 History subcutaneous pen injector (Trulicity) furosemide 40 mg tablet 40 mg PO DAILY 06/13/24 06/13/24 History Current Medications: Active Medications Acetaminophen (Acetaminophen 325 Mg Tablet) 650 mg PO Q6H PRN PRN Reason: Mild Pain (1-3) or Fever Last Admin: 06/14/24 13:56 Dose: 650 mg Albuterol (Albuterol Sulfate (*Sp) Aerosol 1 Puff) 2 puff INHALATION Q4-6H PRN PRN Reason: Shortness Of Breath Alprazolam (Alprazolam (*Crx) 0.25 Mg Tablet) 0.25 mg PO [facility] Last Admin: 06/15/24 21:31 Dose: 0.25 mg Amlodipine Besylate (Amlodipine Besylate 10 Mg Tablet) 10 mg PO DAILY [facility] Last Admin: 06/16/24 09:36 Dose: 10 mg Aspirin (Aspirin 81 Mg Chewable Tablet) 81 mg PO DAILY [facility] Last Admin: 06/16/24 09:36 Dose: 81 mg Atorvastatin Calcium (Atorvastatin 40 Mg Tablet) 80 mg PO DAILY [facility] Last Admin: 06/16/24 08:15 Dose: 80 mg Bupropion HCl (Bupropion Hcl Sr (12 Hr) 150 Mg Tab) 150 mg PO BID [facility] Last Admin: 06/16/24 08:16 Dose: 150 mg Carvedilol (Carvedilol 12.5 Mg Tablet) 12.5 mg PO Q12HR [facility] Last Admin: 06/16/24 09:37 Dose: 12.5 mg Dextrose (Dextrose 50% 25 Gm/50 Ml Syringe) 12.5 gm IV PUSH PRN PRN; Protocol PRN Reason: Hypoglycemia Empagliflozin (Empagliflozin 10 Mg Tablet) 10 mg PO DAILY [facility] Last Admin: 06/16/24 08:16 Dose: 10 mg Furosemide (Furosemide 40 Mg Tablet) 40 mg PO DAILY [facility] Last Admin: 06/15/24 08:16 Dose: 40 mg Glucagon (Glucagon For Inj 1 Mg Vial) 1 mg IM PRN PRN; Protocol PRN Reason: Hypoglycemia Glucose (Glucose Oral Gel 15 Gm Of Glucse In 37.5 Gm Tube) 15 gm PO PRN PRN; Protocol PRN Reason: Hypoglycemia Dextrose (Dextrose 5% 1,000 Ml) 1,000 mls @ 100 mls/hr IVPB PRN PRN; Protocol PRN Reason: Hypoglycemia Insulin Aspart (Insulin Aspart (*Bkc) 100 Units/Ml) 4 - 8 units SUB-Q TIDWM [facility]; Protocol Last Admin: 06/16/24 08:09 Dose: Not Given Insulin Aspart (Insulin Aspart (*Bkc) 100 Units/Ml) 2 - 4 units SUB-Q HS [facility]; Protocol Last Admin: 06/15/24 20:08 Dose: Not Given Isosorbide Mononitrate (Isosorbide Mononitrate 60 Mg Tab.Er.24h) 120 mg PO DAILY [facility] Last Admin: 06/16/24 09:36 Dose: 120 mg Loratadine (Loratadine 10 Mg Tablet) 10 mg PO DAILY PRN PRN Reason: allergy symptoms Losartan Potassium (Losartan Potassium 100 Mg Tablet) 100 mg PO DAILY [facility] Last Admin: 06/15/24 08:12 Dose: 100 mg Metformin HCl (Metformin Hcl 500 Mg Tablet) 1,000 mg PO BID [facility] Last Admin: 06/16/24 08:19 Dose: 1,000 mg Morphine Sulfate (Morphine Sulfate (*Crx) 2 Mg/Ml Inj) 4 mg IV PUSH Q4H PRN PRN Reason: Pain Rated 7-10 Last Admin: 06/15/24 04:18 Dose: 4 mg Nitroglycerin (Nitroglycerin Sl 0.4 Mg Tablet) 0.4 mg SUBLINGUAL Q5MIN PRN PRN Reason: Chest Pain Last Admin: 06/14/24 17:07 Dose: 0.4 mg Ondansetron HCl (Ondansetron Inj 4 Mg/2 Ml Vial) 4 mg IV PUSH Q6H PRN PRN Reason: Nausea And Vomiting Last Admin: 06/15/24 21:34 Dose: 4 mg Pantoprazole Sodium (Pantoprazole 40 Mg Tablet) 40 mg PO BID [facility] Last Admin: 06/16/24 08:19 Dose: 40 mg Rivaroxaban (Rivaroxaban 2.5 Mg Tablet) 2.5 mg PO BID [facility] Last Admin: 06/14/24 18:20 Dose: 2.5 mg Tamsulosin HCl (Tamsulosin Hcl 0.4 Mg Capsule) 0.4 mg PO HS [facility] Last Admin: 06/15/24 21:31 Dose: 0.4 mg Sedation/Anesthesia: No previous sedation/anesthesia problems (including family history). [facility], [facility] Past Medical History Medical History (Updated 06/13/24 @ 21:37 by Moira Olson PA-C) Hypertension Coronary artery disease Stent to the distal circumflex and Left anterior descending in 2014. Left anterior descending stent in 04/2015. COVID Transient ischemic attack Diabetic peripheral neuropathy Peripheral vascular disease Deep venous thrombosis Gastric ulcer Obstructive sleep apnea on CPAP Hyperlipidemia Type 2 diabetes mellitus Gastroesophageal reflux disease Chronic obstructive pulmonary disease Cerebrovascular accident Mild left-sided weakness. Congestive heart failure BMI greater than 40 Chronic anticoagulation Hydronephrosis Psoriasis Depression Fracture of fifth toe, right, closed Kidney stones Pneumonia Myocardial infarction Seasonal allergies Surgical History Surgical History (Updated 06/13/24 @ 21:35 by Moira Olson PA-C) History of coronary artery stent placement History of tonsillectomy History of cholecystectomy History of lithotripsy History of rectal polypectomy History of cardiac catheterization 2 stents Family History Family History Mother Diabetes mellitus Arthritis Kidney stones Coronary artery disease Father Acute myocardial infarction Heart disease Kidney stones Hypertension Coronary artery disease Sibling Coronary artery disease Heart disease Hx of CABG Social History Social History Social History: Surrogate decision maker: Rena Dodd, friend. Code status: Full code. Smoking packs per day: 1 Smoking cigarettes per day: 20.0 Years smoked: 30 Smoking pack-years: 30.00 Smoking status: Former smoker Tobacco type: cigarettes Second hand tobacco smoke exposure: Yes Smoking end date: 02/17/24 Alcohol intake: never Drinks per week: 0 Substance use: never Substance use type: marijuana Last use: 10/01/2023 Do You Feel Safe in your Home?: Yes Lack of Transportation: No Lack of Food: Never True Current Housing: I Have Housing Concerned About Future Housing: No Difficulty Paying Gas/Electric Bills: No Difficulty Paying for Meds: No Currently Unemployed: No Education: High School Diploma/GED Difficulty w/ Childcare or Family Care: No Living arrangements: with roommate(s) Additional living arrangements comments: The patient lives in [place] with a roommate. He has no children. Occupation/Education: other Additional occupation/education comments: Disabled. Spiritual care concerns: No Mod Sed Physical Exam Physical Exam Pre Procedural Exam: Normal: Airway, Heart Size, Heart Rate and Heart Rhythm Hours since solid foods: 12 Hours since liquid intake: 12 Mallampati Classification: class III Internal Medicine - PN: Obj Da Vital Signs Vital Signs: Vital Signs - 24 hr 06/15/24 12:00 06/15/24 12:00 06/15/24 12:00 Temperature 36.7 C Pulse Rate 82 80 Respiratory Rate 22 H Blood Pressure 94/57 L Pulse Oximetry 95 96 Oxygen Delivery Room Air 06/15/24 14:00 06/15/24 16:00 06/15/24 16:00 Temperature 36.3 C L Pulse Rate 74 79 82 Respiratory Rate 24 H Blood Pressure 115/64 Pulse Oximetry 97 Oxygen Delivery 06/15/24 16:00 06/15/24 18:00 06/15/24 20:00 Temperature 36.4 C Pulse Rate 83 80 Respiratory Rate 18 Blood Pressure 118/66 Pulse Oximetry 97 98 Oxygen Delivery Room Air 06/15/24 20:00 06/15/24 20:00 06/15/24 22:00 Temperature Pulse Rate 86 79 Respiratory Rate Blood Pressure Pulse Oximetry Oxygen Delivery Room Air 06/15/24 23:17 06/16/24 00:00 06/16/24 00:00 Temperature 36.7 C Pulse Rate 76 73 Respiratory Rate 18 Blood Pressure 130/40 L Pulse Oximetry 98 Oxygen Delivery Room Air 06/16/24 02:00 06/16/24 02:15 06/16/24 04:00 Temperature Pulse Rate 76 77 Respiratory Rate Blood Pressure Pulse Oximetry Oxygen Delivery CPAP 06/16/24 04:00 06/16/24 04:00 06/16/24 06:00 Temperature 36.7 C Pulse Rate 77 77 Respiratory Rate 18 Blood Pressure 145/70 H Pulse Oximetry 98 97 Oxygen Delivery CPAP 06/16/24 08:00 06/16/24 08:00 06/16/24 09:37 Temperature 36.7 C Pulse Rate 77 78 76 Respiratory Rate 16 Blood Pressure 141/80 H Pulse Oximetry 97 Oxygen Delivery 06/16/24 10:00 06/16/24 11:44 Temperature 36.5 C Pulse Rate 79 76 Respiratory Rate 20 Blood Pressure 132/73 Pulse Oximetry 95 Oxygen Delivery Intake/Output Intake/Output: Intake & Output 06/13/24 06/14/24 06/15/24 06/16/24 23:59 23:59 23:59 23:59 Intake Total 1510 1040 Output Total 331 7231 8632 0848 Balance -088 -663 -9630 -2491 Meds/Results Medications: Active Medications Generic Name Dose Route Start Last Admin Trade Name Freq PRN Reason Stop Dose Admin Acetaminophen 650 mg 06/13/24 21:42 06/14/24 13:56 Acetaminophen 325 Mg Tablet PO 650 mg Q6H PRN Administration Mild Pain (1-3) or Fever Albuterol 2 puff 06/13/24 22:55 Albuterol Sulfate (*Sp) Aerosol 1 Puff INHALATION Q4-6H PRN Shortness Of Breath Alprazolam 0.25 mg 06/13/24 22:55 06/15/24 21:31 Alprazolam (*Crx) 0.25 Mg Tablet PO 0.25 mg HS BUZZ Administration Amlodipine Besylate 10 mg 06/14/24 09:00 06/16/24 09:36 Amlodipine Besylate 10 Mg Tablet PO 10 mg DAILY BUZZ Administration Aspirin 81 mg 06/14/24 09:00 06/16/24 09:36 Aspirin 81 Mg Chewable Tablet PO 81 mg DAILY BUZZ Administration Atorvastatin Calcium 80 mg 06/14/24 09:00 06/16/24 08:15 Atorvastatin 40 Mg Tablet PO 80 mg DAILY BUZZ Administration Bupropion HCl 150 mg 06/13/24 23:00 06/16/24 08:16 Bupropion Hcl Sr (12 Hr) 150 Mg Tab PO 150 mg BID BUZZ Administration Carvedilol 12.5 mg 06/13/24 23:00 06/16/24 09:37 Carvedilol 12.5 Mg Tablet PO 12.5 mg Q12HR BUZZ Administration Dextrose 12.5 gm 06/13/24 21:42 Dextrose 50% 25 Gm/50 Ml Syringe IV PUSH PRN PRN Hypoglycemia Protocol Empagliflozin 10 mg 06/14/24 09:00 06/16/24 08:16 Empagliflozin 10 Mg Tablet PO 10 mg DAILY BUZZ Administration Furosemide 40 mg 06/14/24 09:00 06/15/24 08:16 Furosemide 40 Mg Tablet PO 40 mg DAILY BUZZ Administration Glucagon 1 mg 06/13/24 21:42 Glucagon For Inj 1 Mg Vial IM PRN PRN Hypoglycemia Protocol Glucose 15 gm 06/13/24 21:42 Glucose Oral Gel 15 Gm Of Glucse In 37.5 Gm Tube PO PRN PRN Hypoglycemia Protocol Dextrose 1,000 mls @ 100 mls/hr 06/13/24 21:42 Dextrose 5% 1,000 Ml IVPB PRN PRN Hypoglycemia Protocol Insulin Aspart 4 - 8 units 06/14/24 08:00 06/16/24 08:09 Insulin Aspart (*Bkc) 100 Units/Ml SUB-Q Not Given TIDWM BUZZ Protocol Insulin Aspart 2 - 4 units 06/13/24 21:50 06/15/24 20:08 Insulin Aspart (*Bkc) 100 Units/Ml SUB-Q Not Given HS BUZZ Protocol Isosorbide Mononitrate 120 mg 06/14/24 09:00 06/16/24 09:36 Isosorbide Mononitrate 60 Mg Tab.Er.24h PO 120 mg DAILY BUZZ Administration Loratadine 10 mg 06/13/24 22:55 Loratadine 10 Mg Tablet PO DAILY PRN allergy symptoms Losartan Potassium 100 mg 06/14/24 09:00 06/15/24 08:12 Losartan Potassium 100 Mg Tablet PO 100 mg DAILY BUZZ Administration Metformin HCl 1,000 mg 06/14/24 09:00 06/16/24 08:19 Metformin Hcl 500 Mg Tablet PO 1,000 mg BID BUZZ Administration Morphine Sulfate 4 mg 06/13/24 21:42 06/15/24 04:18 Morphine Sulfate (*Crx) 2 Mg/Ml Inj IV PUSH 4 mg Q4H PRN Administration Pain Rated 7-10 Nitroglycerin 0.4 mg 06/13/24 21:42 06/14/24 17:07 Nitroglycerin Sl 0.4 Mg Tablet SUBLINGUAL 0.4 mg Q5MIN PRN Administration Chest Pain Ondansetron HCl 4 mg 06/14/24 13:37 06/15/24 21:34 Ondansetron Inj 4 Mg/2 Ml Vial IV PUSH 4 mg Q6H PRN Administration Nausea And Vomiting Pantoprazole Sodium 40 mg 06/14/24 09:00 06/16/24 08:19 Pantoprazole 40 Mg Tablet PO 40 mg BID BUZZ Administration Rivaroxaban 2.5 mg 06/14/24 17:45 06/14/24 18:20 Rivaroxaban 2.5 Mg Tablet PO 2.5 mg BID BUZZ Administration Tamsulosin HCl 0.4 mg 06/13/24 23:05 06/15/24 21:31 Tamsulosin Hcl 0.4 Mg Capsule PO 0.4 mg HS BUZZ Administration Radiology Results: ITS Impressions Chest X-Ray 06/13/24 13:24 IMPRESSION: 1. No acute cardiopulmonary disease. Head CT 06/14/24 11:22 Impression: No acute intracranial hemorrhage or suspicious mass effect. Abdomen X-Ray 06/14/24 14:30 IMPRESSION: 1: No acute abdominal abnormality identified. Brain MRI 06/15/24 11:39 IMPRESSION: 1. Small old lacunar infarct in the right frontoparietal periventricular white matter. No acute intracranial process. 2. Additional scattered periventricular predominant nonspecific white matter T2 hyperintensity which within normal limits for age and consistent with chronic small vessel ischemic disease. Labs 06/16/24 03:54 06/16/24 03:54 Labs: Laboratory Results - last 24 hr 06/15/24 06/15/24 06/16/24 16:19 16:42 03:54 WBC 6.8 RBC 4.38 L Hgb 13.3 L Hct 39.4 L MCV 90.0 MCH 30.4 MCHC 33.8 RDW 13.3 Plt Count 115 L MPV 11.2 H % Immature Plt Fraction 6.2 Sodium 136 L Potassium 4.3 Chloride 103 Carbon Dioxide 22 Anion Gap 11 BUN 24 H Creatinine 1.45 H Estim Creat Clear Calc 66 Estimated GFR 49 L Glucose 116 H POC Capillary Glucose 133 H Calcium 8.7 Magnesium 1.7 Troponin I < 0.012 06/16/24 06/16/24 07:31 11:38 WBC RBC Hgb Hct MCV MCH MCHC RDW Plt Count MPV % Immature Plt Fraction Sodium Potassium Chloride Carbon Dioxide Anion Gap BUN Creatinine Estim Creat Clear Calc Estimated GFR Glucose POC Capillary Glucose 140 H 123 H Calcium Magnesium Troponin I ASA Classification/Sedation ASA Classification/Sedation ASA Class: III Emergent: No Risks: Risks, benefits and alternatives explained and patient/family accepted plan for sedation. Patient re-evaluated immediately prior to sedation.
--- NOTE | 2024-06-16 11:58 | WPDHPUPDATE1 ---
History and Physical Update Update Date/Time: 06/16/24 11:58 History and Physical has been reviewed, including an updated exam of the patient. There are NO changes in the patient's condition. Risks, benefits, and alternatives have been discussed and questions answered. Patient agrees to proceed with procedure.
[2024-06-16 12:52] LABS: Activated Clotting Time 274 SEC (74-137)
[2024-06-16 13:39] LABS: Activated Clotting Time 694 SEC (74-137)
[2024-06-16 13:39] LABS: Activated Clotting Time 227 SEC (74-137)
[2024-06-16 13:39] LABS: Activated Clotting Time 233 SEC (74-137)
--- NOTE | 2024-06-16 14:02 | P.PCNCC_ITS ---
Cardiac Cath Procedure Note Date of procedure:: 06/16/24 Performing physician:: Paola Nolen MD Indication:: Known CAD Accelerating angina-CCS class 3 on maximal tolerated antianginal medications Brief clinical history:: 64-year-old male with medical history of CAD status post LCX and LAD PCI in 2014, LAD stent in 2016, chronic diastolic heart failure, hypertension, peripheral vascular disease, CVA with left-sided weakness, DVT on Xarelto, hyperlipidemia, type 2 diabetes mellitus with diabetic peripheral neuropathy, COPD, obesity, obstructive sleep apnea on CPAP presents with with accelerating CCS class 3 angina on maximal tolerated antianginal medications. He reports anginal chest pain was coming on more frequently, was of greater intensity, was lasting longer with each episode, and he was requiring more nitro to relieve the pain. Cardiac catheterization in April, showed 60% mid LAD stenosis and 70% proximal diagonal stenosis. Procedure Procedure performed:: 1. Right radial artery access 2. Left heart catheterization 3. Selective left and right coronary angiogram 4. IFR of mid LAD 5. PCI of mid LAD with 2.5 X 22 mm Biotronik Orsiro GENARO Sedation/Medication given:: Anesthesia: Versed and Fentanyl were ordered and given in my presence at 12:24 p.m., procedure ended at 1:30 p.m. Supervision of nurse monitored moderate sedation with Versed and Fentanyl was provided for 66 minutes. Versed: 1 mg Fentanyl 100 mcg Access site:: Right radial artery Estimated blood loss:: 20 mL Procedure note:: All risks, benefits and alternatives to left heart catheterization with or without percutaneous coronary intervention was discussed at length with the patient. Risk of complications including but not limited to bleeding, infection, arrhythmia, stroke, worsening kidney function, blood loss, groin hematoma, limb loss, emergency coronary artery bypass grafting, and even were discussed with the patient and all questions were answered. The patient understood and wished to proceed. Time out called, patient name, date of , medical record number, allergies, procedure performed, identify Passenger Agent, patient and staff member concurred with accurate data, procedure carried on. Informed consent signed and placed in the chart. Patient transferred to clinical laboratory assistant room. Prepped and draped in usual sterile fashion. 2% lidocaine injected subcutaneously in right wrist area. 22-gauge venipuncture catheter used to access the right radial artery with the Seldinger technique. 6-FR slender sheath placed in right radial artery. Nitroglycerin 200mcg, and Heparin 5000U was given intraarterial through the sheath. J wire advanced under fluoroscopy. 6 [place] EBU 3.5 guide catheter engaged Left Main Coronary Artery. 5 [place] JR4 diagnostic catheter engaged Right Coronary Artery. Multiple orthogonal angiogram obtained and reviewed. 5 [place] JR4 diagnostic catheter crossed aortic valve to obtain LVEDP, LV angiogram deferred. Findings: LEFT HEART CATHETERIZATION FINDINGS: 1. Left main: The left main coronary artery is widely patent without any significant obstructive disease. 2. Left anterior descending: Patent stent in the proximal LAD. 60% stenosis in the mid LAD. The very distal LAD which is a very small caliber vessel has 70-80% disease. The first diagonal branch has no obstructive disease. The second diagonal branch is a small caliber vessel with 70% disease in the proximal portion. 3. Left circumflex: The left circumflex artery has patent stent in the mid portion. There is a 40% focal stenosis distal to the stent. Remainder of LCX has luminal irregularities. No significant obstructive angiographic disease. There is a very small caliber OM branch with non-obstructive disease. 4. Right coronary artery: The RCA is the dominant vessel. The RCA has mild diffuse disease. There is a 40% stenosis in the mid portion of the RPDA. 5. Left ventricle: A. End-diastolic pressure 32 mmHg. B. LV gram deferred. C. No significant gradient across aortic valve on catheter pullback. 6. Opening AO pressure 115/81/97 mm Hg Decision was made to proceed with IFR of mid LAD stenosis. Procedure Description for PCI: Heparin was used for anticoagulation (ACT maintained above 250) Patient loaded with heparin at 70 units/kg. 6 [place] EBU 3.5 guide catheter was used to intubate the left main coronary artery. Estephania Omni IFR wire was passed into the distal LAD after normalizing in the aorta. IFR was measured at 0.82. Decision was made to proceed with PCI of mid LAD over IFR wire. 0.014 runthrough coronary wire was passed in to the diagonal branch. An [place] IVUS catheter was advanced into LAD to define the lesion anatomy and to optimize PCI. The lesion in the mid LAD was pre-dilated with a 2.0 X 15 mm compliant balloon inflated to high LG. A 2.5 mm x 22 mm Biotronik Orsiro GENARO was successfully deployed into the mid LAD. The stent was post-dilated with a 3.5 mm x 12 mm NC balloon inflated to high LG. Intracoronary NTG was administered. Follow-up angiograms showed an excellent result. Coronary wire, IFR wire and guide-catheter were removed. Pre-procedure - ENOCH 3 flow Post-procedure - ENOCH 3 flow No angiographic complications identified. Post Operative Condition: Stable No significant blood loss Disposition: Floor Findings:: LEFT HEART CATHETERIZATION FINDINGS: 1. Left main: The left main coronary artery is widely patent without any significant obstructive disease. 2. Left anterior descending: Patent stent in the proximal LAD. 60% stenosis in the mid LAD. The very distal LAD which is a very small caliber vessel has 70-80% disease. The first diagonal branch has no obstructive disease. The second diagonal branch is a small caliber vessel with 70% disease in the proximal portion. 3. Left circumflex: The left circumflex artery has patent stent in the mid portion. There is a 40% focal stenosis distal to the stent. Remainder of LCX has luminal irregularities. No significant obstructive angiographic disease. There is a very small caliber OM branch with non-obstructive disease. 4. Right coronary artery: The RCA is the dominant vessel. The RCA has mild diffuse disease. There is a 40% stenosis in the mid portion of the RPDA. 5. Left ventricle: A. End-diastolic pressure 32 mmHg. B. LV gram deferred. C. No significant gradient across aortic valve on catheter pullback. 6. Opening AO pressure 115/81/97 mm Hg Decision was made to proceed with IFR of mid LAD stenosis. Conclusion:: 1. Successful IVUS guided PCI to mid LAD with 2.5 mm x 22 mm Biotronik Orsiro GENARO post-dilated with a 3.5 mm x 12 mm NC balloon inflated to high LG. 2. Elevated left-sided pressures with LVEDP of 32. Assessment and Plan Assessment and plan (1) Coronary artery disease: Qualifiers: Coronary Disease-Associated Artery/Lesion type: [place] artery [place] vs. transplanted heart: [place] heart Associated angina: with other forms of angina Qualified Code(s): I25.118 - Atherosclerotic heart disease of [place] coronary artery with other forms of angina pectoris Code(s): I25.10 - Atherosclerotic heart disease of [place] coronary artery without angina pectoris Status: Acute (2) Chest pain: Code(s): R07.9 - Chest pain, unspecified Status: Acute Plan -normal saline 500 mL at 100 cc/hour -continue aspirin 81 mg daily. Stop after 1 week (patient also on rivaroxaban) -add Plavix 75 mg daily -continue anticoagulation with rivaroxaban -management of TR band per protocol -diuresis starting tomorrow with Lasix 40 mg IV b.i.d. -aggressive risk factor modification -follow-up with cardiology in 4 weeks post discharge
[2024-06-16] MEDS: CLOPIDOGREL BISULFATE 300 MG TABLET PO (15:48)
--- NOTE | 2024-06-16 15:52 | P.PNIM_ITS ---
Progress Note: A&P Assessment and Plan (1) Chest pain: Qualifiers: Chest pain type: unspecified Qualified Code(s): R07.9 - Chest pain, unspecified Code(s): R07.9 - Chest pain, unspecified Status: Acute (2) Chronic heart failure with preserved ejection fraction (HFpEF): Code(s): I50.32 - Chronic diastolic (congestive) heart failure Status: Acute (3) Hypertension: Code(s): I10 - Essential (primary) hypertension Status: Acute (4) Type 2 diabetes mellitus: Qualifiers: Diabetes mellitus senior living insulin use: with senior living use Diabetes mellitus complication status: with neurologic complications Diabetes mellitus complication detail: with unspecified neuropathy Qualified Code(s): E11.40 - Type 2 diabetes mellitus with diabetic neuropathy, unspecified; Z79.4 - USP (current) use of insulin Code(s): E11.9 - Type 2 diabetes mellitus without complications Status: Acute (5) Chronic anticoagulation: Code(s): Z79.01 - USP (current) use of anticoagulants Status: Chronic (6) Obstructive sleep apnea on CPAP: Code(s): G47.33 - Obstructive sleep apnea (adult) (pediatric); Z99.89 - Dependence on other enabling machines and devices Status: Acute Plan The patient presented to the emergency department for evaluation of chest pain as detailed in HPI. Labs, imaging, EKG, and all reports were personally reviewed. Cardiac catheterization done in early April showed moderate coronary disease for which maximal medical therapy was recommended. The chest discomfort he has been having is typical of his angina and has improved with nitro. He is already on amlodipine, isosorbide mononitrate, and carvedilol. He was on ranolazine in the past but stopped taking that due to side effects however due to recurrent angina it may be prudent to restart this medication. Cardiology has been consulted for their opinion as well. He appears euvolemic on examination. Blood pressures are stable. Initiate sliding scale insulin, Accu-Cheks, and hypoglycemic protocol. CPAP will be provided for the patient to use while hospitalized. His medications will be reviewed and resumed as appropriate. Findings and treatment plan were discussed with the patient. Questions were solicited and answered to satisfaction. The patient's medical management will be taken over by the hospitalist team in a.m. Morbidly obese patient with history of CAD presented with CP and light headedness, 3 sets of cardiac enzymes are negative, and no acute change seen on EKG seen by public relations account supervisor, patient had a similar presentation recently in April and cardiac echo did not show any abnormalities and no further cardiac workup was recommended similarly public relations account supervisor is recommending to monitor, on 06/15 public relations account supervisor recommended cardiac cath to further evaluate patient c/o CP, today patient is schedule to have cath, will follow up and plan. to further evaluate c/o light headedness weakness of upper extremities CT scan was done and its normal and MRI of the brain as well did not show any acute changes in the brain, will monitor and further recommendation to follow. Subjective Date/time seen: 06/16/24 15:52 Interval history: Chief Complaint: H&P-Chest pain. Narrative: This is a pleasant 64-year-old male with history of stroke, diabetes, coronary artery disease, peripheral vascular disease, congestive heart failure, and several other comorbidities who presented to the emergency department for evaluation of chest pain. He was admitted to the hospital in early April with chest pain and cardiac catheterization at that time showed [id number] disease for which medical management was recommended. He has been doing well since that time and has not had chest pain until today. He got up sometime this morning to use the restroom and when he returned to bed he developed pressure- like discomfort in the mid chest radiating into the left arm and up into the neck and head. He was feeling short of breath at that time with nausea as well. The discomfort improved with nitroglycerin x3. Since arrival to the ED he has continued to have intermittent pressure though is feeling much better. He denies syncope but reports having episodes of lightheadedness and dizziness upon standing on Thursday though not today. He also denies fever, cold and flu symptoms, pleuritic pain, palpitations, current shortness of breath, cough, abdominal pain, vomiting, diarrhea, lower extremity edema, and calf pain. Morbidly obese patient with history of CAD presented with CP and light headedness, 3 sets of cardiac enzymes are negative, and no acute change seen on EKG seen by public relations account supervisor, patient had a similar presentation recently in April and cardiac echo did not show any abnormalities and no further cardiac workup was recommended similarly public relations account supervisor is recommending to monitor, on 06/15 public relations account supervisor recommended cardiac cath to further evaluate patient c/o CP, today patient is schedule to have cath, will follow up and plan. to further evaluate c/o light headedness weakness of upper extremities CT scan was done and its normal and MRI of the brain as well did not show any acute changes in the brain, will monitor and further recommendation to follow. Review of Systems Review of Systems: 12 systems were reviewed and are negativ e except for as per HPI. Exam Narrative: Patient is comfortable, NAD HEENT: eyes are clear and none icteric LUNGS:CTA HEART: RR S1S2 ABD: BS+, Soft and nontender Lower extremities: no edema SKIN: nonjaundiced Neuro: grossly intact. Objective Data Vital Signs Vital Signs: Vital Signs - 24 hr 06/15/24 16:00 06/15/24 16:00 06/15/24 16:00 Temperature 36.3 C L Pulse Rate 79 82 Respiratory Rate 24 H Blood Pressure 115/64 Pulse Oximetry 97 97 Oxygen Delivery Room Air 06/15/24 18:00 06/15/24 20:00 06/15/24 20:00 Temperature 36.4 C Pulse Rate 83 80 Respiratory Rate 18 Blood Pressure 118/66 Pulse Oximetry 98 Oxygen Delivery Room Air 06/15/24 20:00 06/15/24 22:00 06/15/24 23:17 Temperature 36.7 C Pulse Rate 86 79 76 Respiratory Rate 18 Blood Pressure 130/40 L Pulse Oximetry 98 Oxygen Delivery 06/16/24 00:00 06/16/24 00:00 06/16/24 02:00 Temperature Pulse Rate 73 76 Respiratory Rate Blood Pressure Pulse Oximetry Oxygen Delivery Room Air 06/16/24 02:15 06/16/24 04:00 06/16/24 04:00 Temperature Pulse Rate 77 Respiratory Rate Blood Pressure Pulse Oximetry 98 Oxygen Delivery CPAP CPAP 06/16/24 04:00 06/16/24 06:00 06/16/24 08:00 Temperature 36.7 C 36.7 C Pulse Rate 77 77 77 Respiratory Rate 18 16 Blood Pressure 145/70 H 141/80 H Pulse Oximetry 97 97 Oxygen Delivery 06/16/24 08:00 06/16/24 09:37 06/16/24 10:00 Temperature Pulse Rate 78 76 79 Respiratory Rate Blood Pressure Pulse Oximetry Oxygen Delivery 06/16/24 11:44 06/16/24 12:00 06/16/24 13:50 Temperature 36.5 C Pulse Rate 76 79 75 Respiratory Rate 20 12 Blood Pressure 132/73 106/91 H Pulse Oximetry 95 98 Oxygen Delivery Room Air 06/16/24 14:00 06/16/24 14:15 06/16/24 14:30 Temperature Pulse Rate 75 76 76 Respiratory Rate 12 11 L 13 Blood Pressure 103/62 106/68 103/56 L Pulse Oximetry 97 96 97 Oxygen Delivery Room Air Room Air Room Air 06/16/24 15:00 06/16/24 15:30 06/16/24 15:45 Temperature Pulse Rate 77 77 82 Respiratory Rate 17 10 L 18 Blood Pressure 91/78 L 108/64 119/63 Pulse Oximetry 96 96 96 Oxygen Delivery Room Air Room Air Room Air Intake/Output Intake/Output: Intake & Output 06/13/24 06/14/24 06/15/24 06/16/24 23:59 23:59 23:59 23:59 Intake Total 1510 1040 Output Total 681 6980 [id number] [facility] -[phone] -1500 Meds/Results Medications: Active Medications Generic Name Dose Route Start Last Admin Trade Name Freq PRN Reason Stop Dose Admin Acetaminophen 650 mg 06/13/24 21:42 06/14/24 13:56 Acetaminophen 325 Mg Tablet PO 650 mg Q6H PRN Administration Mild Pain (1-3) or Fever Albuterol 2 puff 06/13/24 22:55 Albuterol Sulfate (*Sp) Aerosol 1 Puff INHALATION Q4-6H PRN Shortness Of Breath Alprazolam 0.25 mg 06/13/24 22:55 06/15/24 21:31 Alprazolam (*Crx) 0.25 Mg Tablet PO 0.25 mg HS BUZZ Administration Amlodipine Besylate 10 mg 06/14/24 09:00 06/16/24 09:36 Amlodipine Besylate 10 Mg Tablet PO 10 mg DAILY BUZZ Administration Aspirin 81 mg 06/14/24 09:00 06/16/24 09:36 Aspirin 81 Mg Chewable Tablet PO 81 mg DAILY BUZZ Administration Atorvastatin Calcium 80 mg 06/14/24 09:00 06/16/24 08:15 Atorvastatin 40 Mg Tablet PO 80 mg DAILY BUZZ Administration Bupropion HCl 150 mg 06/13/24 23:00 06/16/24 08:16 Bupropion Hcl Sr (12 Hr) 150 Mg Tab PO 150 mg BID BUZZ Administration Carvedilol 12.5 mg 06/13/24 23:00 06/16/24 09:37 Carvedilol 12.5 Mg Tablet PO 12.5 mg Q12HR BUZZ Administration Clopidogrel Bisulfate 75 mg 06/17/24 09:00 Clopidogrel Bisulfate 75 Mg Tablet PO QAM BUZZ Dextrose 12.5 gm 06/13/24 21:42 Dextrose 50% 25 Gm/50 Ml Syringe IV PUSH PRN PRN Hypoglycemia Protocol Empagliflozin 10 mg 06/14/24 09:00 06/16/24 08:16 Empagliflozin 10 Mg Tablet PO 10 mg DAILY BUZZ Administration Furosemide 40 mg 06/14/24 09:00 06/15/24 08:16 Furosemide 40 Mg Tablet PO 40 mg DAILY BUZZ Administration Glucagon 1 mg 06/13/24 21:42 Glucagon For Inj 1 Mg Vial IM PRN PRN Hypoglycemia Protocol Glucose 15 gm 06/13/24 21:42 Glucose Oral Gel 15 Gm Of Glucse In 37.5 Gm Tube PO PRN PRN Hypoglycemia Protocol Dextrose 1,000 mls @ 100 mls/hr 06/13/24 21:42 Dextrose 5% 1,000 Ml IVPB PRN PRN Hypoglycemia Protocol Insulin Aspart 4 - 8 units 06/14/24 08:00 06/16/24 12:03 Insulin Aspart (*Bkc) 100 Units/Ml SUB-Q Not Given TIDWM [facility] Protocol Insulin Aspart 2 - 4 units 06/13/24 21:50 06/15/24 20:08 Insulin Aspart (*Bkc) 100 Units/Ml SUB-Q Not Given HS [facility] Protocol Isosorbide Mononitrate 120 mg 06/14/24 09:00 06/16/24 09:36 Isosorbide Mononitrate 60 Mg Tab.Er.24h PO 120 mg DAILY BUZZ Administration Loratadine 10 mg 06/13/24 22:55 Loratadine 10 Mg Tablet PO DAILY PRN allergy symptoms Losartan Potassium 100 mg 06/14/24 09:00 06/15/24 08:12 Losartan Potassium 100 Mg Tablet PO 100 mg DAILY BUZZ Administration Metformin HCl 1,000 mg 06/14/24 09:00 06/16/24 08:19 Metformin Hcl 500 Mg Tablet PO 1,000 mg BID BUZZ Administration Morphine Sulfate 4 mg 06/13/24 21:42 06/15/24 04:18 Morphine Sulfate (*Crx) 2 Mg/Ml Inj IV PUSH 4 mg Q4H PRN Administration Pain Rated 7-10 Nitroglycerin 0.4 mg 06/13/24 21:42 06/14/24 17:07 Nitroglycerin Sl 0.4 Mg Tablet SUBLINGUAL 0.4 mg Q5MIN PRN Administration Chest Pain Ondansetron HCl 4 mg 06/14/24 13:37 06/15/24 21:34 Ondansetron Inj 4 Mg/2 Ml Vial IV PUSH 4 mg Q6H PRN Administration Nausea And Vomiting Pantoprazole Sodium 40 mg 06/14/24 09:00 06/16/24 08:19 Pantoprazole 40 Mg Tablet PO 40 mg BID BUZZ Administration Rivaroxaban 2.5 mg 06/14/24 17:45 06/14/24 18:20 Rivaroxaban 2.5 Mg Tablet PO 2.5 mg BID BUZZ Administration Tamsulosin HCl 0.4 mg 06/13/24 23:05 06/15/24 21:31 Tamsulosin Hcl 0.4 Mg Capsule PO 0.4 mg HS BUZZ Administration Radiology Results: ITS Impressions Chest X-Ray 06/13/24 13:24 IMPRESSION: 1. No acute cardiopulmonary disease. Head CT 06/14/24 11:22 Impression: No acute intracranial hemorrhage or suspicious mass effect. Abdomen X-Ray 06/14/24 14:30 IMPRESSION: 1: No acute abdominal abnormality identified. Brain MRI 06/15/24 11:39 IMPRESSION: 1. Small old lacunar infarct in the right frontoparietal periventricular white matter. No acute intracranial process. 2. Additional scattered periventricular predominant nonspecific white matter T2 hyperintensity which within normal limits for age and consistent with chronic small vessel ischemic disease. Labs Labs: Laboratory Results - last 24 hr 06/15/24 06/15/24 06/16/24 16:19 16:42 03:54 WBC 6.8 RBC 4.38 L Hgb 13.3 L Hct 39.4 L MCV 90.0 MCH 30.4 MCHC 33.8 RDW 13.3 Plt Count 115 L MPV 11.2 H % Immature Plt Fraction 6.2 Activ Coag Time Kaolin Sodium 136 L Potassium 4.3 Chloride 103 Carbon Dioxide 22 Anion Gap 11 BUN 24 H Creatinine 1.45 H Estim Creat Clear Calc 66 Estimated GFR 49 L Glucose 116 H POC Capillary Glucose 133 H Calcium 8.7 Magnesium 1.7 Troponin I < 0.012 06/16/24 06/16/24 06/16/24 07:31 11:38 12:50 WBC RBC Hgb Hct MCV MCH MCHC RDW Plt Count MPV % Immature Plt Fraction Activ Coag Time Kaolin 274 H Sodium Potassium Chloride Carbon Dioxide Anion Gap BUN Creatinine Estim Creat Clear Calc Estimated GFR Glucose POC Capillary Glucose 140 H 123 H Calcium Magnesium Troponin I 06/16/24 06/16/24 06/16/24 13:17 13:24 13:35 WBC RBC Hgb Hct MCV MCH MCHC RDW Plt Count MPV % Immature Plt Fraction Activ Coag Time Kaolin 694 H 227 H 233 H Sodium Potassium Chloride Carbon Dioxide Anion Gap BUN Creatinine Estim Creat Clear Calc Estimated GFR Glucose POC Capillary Glucose Calcium Magnesium Troponin I Quality VTE Prophylaxis VTE prophylaxis: pharmacologic ordered (on rivaroxaban)
--- NOTE | 2024-06-16 17:40 | PC.NURSE ---
pt returned from label tacker
[2024-06-16 19:02] LABS: Glucose Point of Care 192 mg/dl (65-105)
[2024-06-16] MEDS: ALPRAZolam (*CRX) 0.25 MG TABLET PO (22:00)
[2024-06-16] MEDS: TAMSULOSIN HCL 0.4 MG CAPSULE PO (22:00)
[2024-06-17] VITALS (9 sets, daily range): BP systolic 117–136; BP diastolic 68–72; PULSE 75–82; RESP 16–18; TEMP 36.5; O2SAT 94–98
[2024-06-17 05:28] LABS: Hematocrit 39.2 % (42.0-52.0); Hemoglobin 13.1 g/dL (14.0-18.0); Mean Corpuscular HGB Conc 33.4 g/dl (32-36); Mean Corpuscular Hemoglobin 30.4 pg (26-34); Mean Platelet Volume 11.3 fl (7.4-10.4); Platelet Count Result 110 k/mm3 (150-375); Red Blood Count 4.31 M/mm3 (4.6-6.20); Red Cell Distribution Width 13.4 % (11.5-14.5); White Blood Count 7.2 K/mm3 (4.5-10.0)
[2024-06-17 05:49] LABS: Anion Gap 12 mmol/L (4-12); Blood Urea Nitrogen 20 mg/dL (9-20); Calcium 8.8 mg/dL (8.4-10.2); Carbon Dioxide 21 mmol/L (22-30); Chloride 103 mmol/L (98-107); Estimated CRCL calculation 72 ml/min; Estimated Glomerular Filt Rate 54; Glucose 133 mg/dL (65-110); Magnesium 1.8 mg/dL (1.6-2.3); Potassium 4.1 mmol/L (3.4-5.0); Sodium 136 mmol/L (137-145)
--- NOTE | 2024-06-17 06:27 | P.PNCA_ITS ---
Progress Note: A&P Assessment and Plan (1) Chest pain: Qualifiers: Chest pain type: unspecified Qualified Code(s): R07.9 - Chest pain, unspecified Code(s): R07.9 - Chest pain, unspecified Status: Acute (2) Coronary artery disease: Qualifiers: Associated angina: with other forms of angina Coronary Disease- Associated Artery/Lesion type: [place] artery [place] vs. transplanted heart: [place] heart Qualified Code(s): I25.118 - Atherosclerotic heart disease of [place] coronary artery with other forms of angina pectoris Code(s): I25.10 - Atherosclerotic heart disease of [place] coronary artery without angina pectoris Status: Acute (3) Chronic heart failure with preserved ejection fraction (HFpEF): Code(s): I50.32 - Chronic diastolic (congestive) heart failure Status: Acute (4) HTN (hypertension): Qualifiers: Hypertension type: primary hypertension Qualified Code(s): I10 - Essential (primary) hypertension Code(s): I10 - Essential (primary) hypertension Status: Chronic (5) HLD (hyperlipidemia): Qualifiers: Hyperlipidemia type: unspecified Qualified Code(s): E78.5 - Hyperlipidemia, unspecified Code(s): E78.5 - Hyperlipidemia, unspecified Status: Chronic Plan 64-year-old male with medical history of CAD status post LCX and LAD PCI in 2015, LAD stent in 2016, chronic diastolic heart failure, hypertension, peripheral vascular disease, CVA with left-sided weakness, DVT on Xarelto, hyperlipidemia, type 2 diabetes mellitus with diabetic peripheral neuropathy, COPD, obesity, obstructive sleep apnea on CPAP was admitted with CCS class IV angina despite optimal medical therapy. TTE shows normal LVEF and no significant valvular pathology. Cardiac catheterization with mid LAD 60% stenosis with IFR of 0.82 s/p successful IVUS guided PCI with 2.5x22mm Orsiro GENARO and post dilated with 3.0x12mm NC balloon to high pressure. Patient tolerated the procedure well with no complications. CAD s/p PCI to proximal LAD and proximal LCX in the past; now s/p PCI to mid LAD Chest pain- resolved -Triple therapy with Xarelto, aspirin, Plavix for 1 week, then Xarelto and Plavix for 6 months, then Xarelto and aspirin -Asa 81 mg daily for 1 week and then stop -Plavix 300 mg p.o. loaded yesterday. Continue Plavix 75 mg daily for 6 months. After 6 months stop Plavix and resume aspirin 81 mg daily -I have discussed antiplatelet and anticoagulant therapies in great detail with patient and he voiced understanding -continue Coreg, losartan, and amlodipine -continue imdur for blood pressure control -continue statin -check and replace electrolytes to keep K greater than 4 and Mg greater than 2 -please arrange follow-up with Dr. Richardson in 4 weeks post discharge Thank you for allowing us to participate in the care of Mr. Zambrano. Cardiology will sign off please call us with any questions Subjective Date/time seen: 06/17/24 06:27 Interval history: Reason for encounter is: Chest pain, lightheadedness Relevant history:64-year-old male with medical history of CAD status post LCX and LAD PCI in 2014, LAD stent in 2016, chronic diastolic heart failure, hypertension, peripheral vascular disease, CVA with left-sided weakness, DVT on Xarelto, hyperlipidemia, type 2 diabetes mellitus with diabetic peripheral neuropathy, COPD, obesity, obstructive sleep apnea on CPAP was admitted with chest pain. TTE shows normal LVEF of 60-65% and no significant valvular pathology. No regional wall motion abnormalities. Cardiac catheterization was performed given CCS class IV angina while on maximally tolerated antianginal meds. Patient had mid LAD 60% stenosis with IFR of 0.82 s/p successful IVUS guided PCI with 2.5x22mm Orsiro GENARO and post dilated with 3.0x12mm NC balloon to high pressure. Interval history: No chest pain or SOB. Nausea, abdominal pain resolved. Review of Systems Review of Systems: A complete review of systems was performed and negative other than those mentioned in the HPI Exam Narrative: General: Alert oriented x3, no acute distress Neck: Supple, no JVD Chest: Bilaterally clear to auscultation, no rales or rhonchi Cardiac: S1, S2 +, regular rate, regular rhythm, no murmurs or rubs Extremities: No pedal edema, no skin rash Neurologic: Alert and oriented x3, no focal neurological deficits Objective Data Vital Signs Vital Signs: Vital Signs - 24 hr 06/16/24 08:00 06/16/24 08:00 06/16/24 09:37 Temperature 36.7 C Pulse Rate 77 78 76 Respiratory Rate 16 Blood Pressure 141/80 H Pulse Oximetry 97 Oxygen Delivery Fraction of Inspired Oxygen 06/16/24 10:00 06/16/24 11:44 06/16/24 12:00 Temperature 36.5 C Pulse Rate 79 76 79 Respiratory Rate 20 Blood Pressure 132/73 Pulse Oximetry 95 Oxygen Delivery Fraction of Inspired Oxygen 06/16/24 13:50 06/16/24 14:00 06/16/24 14:15 Temperature Pulse Rate 75 75 76 Respiratory Rate 12 12 11 L Blood Pressure 106/91 H 103/62 106/68 Pulse Oximetry 98 97 96 Oxygen Delivery Room Air Room Air Room Air Fraction of Inspired Oxygen 06/16/24 14:30 06/16/24 15:00 06/16/24 15:30 Temperature Pulse Rate 76 77 77 Respiratory Rate 13 17 10 L Blood Pressure 103/56 L 91/78 L 108/64 Pulse Oximetry 97 96 96 Oxygen Delivery Room Air Room Air Room Air Fraction of Inspired Oxygen 06/16/24 15:45 06/16/24 16:00 06/16/24 16:15 Temperature Pulse Rate 82 78 74 Respiratory Rate 18 13 16 Blood Pressure 119/63 102/64 102/59 L Pulse Oximetry 96 96 97 Oxygen Delivery Room Air Room Air Room Air Fraction of Inspired Oxygen 06/16/24 16:30 06/16/24 16:45 06/16/24 17:00 Temperature Pulse Rate 76 75 76 Respiratory Rate 14 20 19 Blood Pressure 100/87 108/68 92/59 L Pulse Oximetry 96 96 98 Oxygen Delivery Room Air Room Air Room Air Fraction of Inspired Oxygen 06/16/24 17:15 06/16/24 17:30 06/16/24 18:00 Temperature Pulse Rate 74 75 79 Respiratory Rate 17 14 Blood Pressure 109/67 110/71 Pulse Oximetry 98 98 Oxygen Delivery Room Air Room Air Fraction of Inspired Oxygen 06/16/24 18:00 06/16/24 20:00 06/16/24 20:00 Temperature 36.3 C L 36.3 C L Pulse Rate 75 76 Respiratory Rate 16 17 Blood Pressure 123/63 122/64 Pulse Oximetry 97 98 Oxygen Delivery Room Air Fraction of Inspired Oxygen 06/16/24 20:00 06/16/24 20:40 06/16/24 22:00 Temperature Pulse Rate 81 74 Respiratory Rate Blood Pressure Pulse Oximetry 97 Oxygen Delivery Room Air Fraction of Inspired Oxygen 21 06/16/24 23:07 06/16/24 23:09 06/17/24 00:00 Temperature 36.8 C Pulse Rate 77 76 Respiratory Rate 18 Blood Pressure 130/74 Pulse Oximetry 98 Oxygen Delivery Room Air Fraction of Inspired Oxygen 06/17/24 00:30 06/17/24 03:03 06/17/24 04:00 Temperature Pulse Rate 79 81 Respiratory Rate Blood Pressure Pulse Oximetry 97 Oxygen Delivery CPAP CPAP Fraction of Inspired Oxygen 06/17/24 04:00 06/17/24 04:00 Temperature Pulse Rate 75 Respiratory Rate 18 Blood Pressure 128/68 Pulse Oximetry 94 Oxygen Delivery Room Air Fraction of Inspired Oxygen Intake/Output Intake/Output: Intake & Output 06/14/24 06/15/24 06/16/24 06/17/24 23:59 23:59 23:59 23:59 Intake Total 1510 1040 490 Output Total 2073 9739 1500 550 [facility] -565 -1335 -1010 -550 Meds/Results Medications: Active Medications Generic Name Dose Route Start Last Admin Trade Name Freq PRN Reason Stop Dose Admin Acetaminophen 650 mg 06/13/24 21:42 06/14/24 13:56 Acetaminophen 325 Mg Tablet PO 650 mg Q6H PRN Administration Mild Pain (1-3) or Fever Albuterol 2 puff 06/13/24 22:55 Albuterol Sulfate (*Sp) Aerosol 1 Puff INHALATION Q4-6H PRN Shortness Of Breath Alprazolam 0.25 mg 06/13/24 22:55 06/16/24 22:00 Alprazolam (*Crx) 0.25 Mg Tablet PO 0.25 mg HS BUZZ Administration Amlodipine Besylate 10 mg 06/14/24 09:00 06/16/24 09:36 Amlodipine Besylate 10 Mg Tablet PO 10 mg DAILY BUZZ Administration Aspirin 81 mg 06/14/24 09:00 06/16/24 09:36 Aspirin 81 Mg Chewable Tablet PO 81 mg DAILY BUZZ Administration Atorvastatin Calcium 80 mg 06/14/24 09:00 06/16/24 08:15 Atorvastatin 40 Mg Tablet PO 80 mg DAILY BUZZ Administration Bupropion HCl 150 mg 06/13/24 23:00 06/16/24 17:47 Bupropion Hcl Sr (12 Hr) 150 Mg Tab PO 150 mg BID BUZZ Administration Carvedilol 12.5 mg 06/13/24 23:00 06/16/24 22:00 Carvedilol 12.5 Mg Tablet PO 12.5 mg Q12HR BUZZ Administration Clopidogrel Bisulfate 75 mg 06/17/24 09:00 Clopidogrel Bisulfate 75 Mg Tablet PO QAM BUZZ Dextrose 12.5 gm 06/13/24 21:42 Dextrose 50% 25 Gm/50 Ml Syringe IV PUSH PRN PRN Hypoglycemia Protocol Empagliflozin 10 mg 06/14/24 09:00 06/16/24 08:16 Empagliflozin 10 Mg Tablet PO 10 mg DAILY BUZZ Administration Furosemide 40 mg 06/14/24 09:00 06/15/24 08:16 Furosemide 40 Mg Tablet PO 40 mg DAILY BUZZ Administration Glucagon 1 mg 06/13/24 21:42 Glucagon For Inj 1 Mg Vial IM PRN PRN Hypoglycemia Protocol Glucose 15 gm 06/13/24 21:42 Glucose Oral Gel 15 Gm Of Glucse In 37.5 Gm Tube PO PRN PRN Hypoglycemia Protocol Dextrose 1,000 mls @ 100 mls/hr 06/13/24 21:42 Dextrose 5% 1,000 Ml IVPB PRN PRN Hypoglycemia Protocol Insulin Aspart 4 - 8 units 06/14/24 08:00 06/16/24 17:47 Insulin Aspart (*Bkc) 100 Units/Ml SUB-Q Not Given TIDWM COUNT INCLUDES THE [facility] Protocol Insulin Aspart 2 - 4 units 06/13/24 21:50 06/16/24 22:00 Insulin Aspart (*Bkc) 100 Units/Ml SUB-Q Not Given HS COUNT INCLUDES THE [facility] Protocol Isosorbide Mononitrate 120 mg 06/14/24 09:00 06/16/24 09:36 Isosorbide Mononitrate 60 Mg Tab.Er.24h PO 120 mg DAILY BUZZ Administration Loratadine 10 mg 06/13/24 22:55 Loratadine 10 Mg Tablet PO DAILY PRN allergy symptoms Losartan Potassium 100 mg 06/14/24 09:00 06/15/24 08:12 Losartan Potassium 100 Mg Tablet PO 100 mg DAILY BUZZ Administration Metformin HCl 1,000 mg 06/14/24 09:00 06/16/24 17:47 Metformin Hcl 500 Mg Tablet PO 1,000 mg BID BUZZ Administration Morphine Sulfate 4 mg 06/13/24 21:42 06/15/24 04:18 Morphine Sulfate (*Crx) 2 Mg/Ml Inj IV PUSH 4 mg Q4H PRN Administration Pain Rated 7-10 Nitroglycerin 0.4 mg 06/13/24 21:42 06/14/24 17:07 Nitroglycerin Sl 0.4 Mg Tablet SUBLINGUAL 0.4 mg Q5MIN PRN Administration Chest Pain Ondansetron HCl 4 mg 06/14/24 13:37 06/15/24 21:34 Ondansetron Inj 4 Mg/2 Ml Vial IV PUSH 4 mg Q6H PRN Administration Nausea And Vomiting Pantoprazole Sodium 40 mg 06/14/24 09:00 06/16/24 17:47 Pantoprazole 40 Mg Tablet PO 40 mg BID BUZZ Administration Rivaroxaban 2.5 mg 06/14/24 17:45 06/14/24 18:20 Rivaroxaban 2.5 Mg Tablet PO 2.5 mg BID BUZZ Administration Tamsulosin HCl 0.4 mg 06/13/24 23:05 06/16/24 22:00 Tamsulosin Hcl 0.4 Mg Capsule PO 0.4 mg HS BUZZ Administration Radiology Results: ITS Impressions Chest X-Ray 06/13/24 13:24 IMPRESSION: 1. No acute cardiopulmonary disease. Head CT 06/14/24 11:22 Impression: No acute intracranial hemorrhage or suspicious mass effect. Abdomen X-Ray 06/14/24 14:30 IMPRESSION: 1: No acute abdominal abnormality identified. Brain MRI 06/15/24 11:39 IMPRESSION: 1. Small old lacunar infarct in the right frontoparietal periventricular white matter. No acute intracranial process. 2. Additional scattered periventricular predominant nonspecific white matter T2 hyperintensity which within normal limits for age and consistent with chronic small vessel ischemic disease. Labs Labs: Laboratory Results - last 24 hr 06/16/24 06/16/24 06/16/24 07:31 11:38 12:50 WBC RBC Hgb Hct MCV MCH MCHC RDW Plt Count MPV Activ Coag Time Kaolin 274 H Sodium Potassium Chloride Carbon Dioxide Anion Gap BUN Creatinine Estim Creat Clear Calc Estimated GFR Glucose POC Capillary Glucose 140 H 123 H Calcium Magnesium 06/16/24 06/16/24 06/16/24 13:17 13:24 13:35 WBC RBC Hgb Hct MCV MCH MCHC RDW Plt Count MPV Activ Coag Time Kaolin 694 H 227 H 233 H Sodium Potassium Chloride Carbon Dioxide Anion Gap BUN Creatinine Estim Creat Clear Calc Estimated GFR Glucose POC Capillary Glucose Calcium Magnesium 06/16/24 06/17/24 18:59 04:54 WBC 7.2 RBC 4.31 L Hgb 13.1 L Hct 39.2 L MCV 91.0 MCH 30.4 MCHC 33.4 RDW 13.4 Plt Count 110 L MPV 11.3 H Activ Coag Time Kaolin Sodium 136 L Potassium 4.1 Chloride 103 Carbon Dioxide 21 L Anion Gap 12 BUN 20 Creatinine 1.32 H Estim Creat Clear Calc 72 Estimated GFR 54 L Glucose 133 H POC Capillary Glucose 192 H Calcium 8.8 Magnesium 1.8
[2024-06-17 07:52] LABS: Glucose Point of Care 120 mg/dl (65-105)
[2024-06-17] MEDS: carvediloL 12.5 MG TABLET PO (08:40)
[2024-06-17] MEDS: ISOSORBIDE MONONITRATE 60 MG TAB.ER.24H 120 MG PO (08:40)
[2024-06-17] MEDS: buPROPion HCL SR (12 HR) 150 MG TAB PO (08:40)
[2024-06-17] MEDS: PANTOPRAZOLE 40 MG TABLET PO (08:40)
[2024-06-17] MEDS: ATORVASTATIN 40 MG TABLET 80 MG PO (08:40)
[2024-06-17] MEDS: ASPIRIN 81 MG CHEWABLE TABLET PO (08:40)
[2024-06-17] MEDS: amLODIPine BESYLATE 10 MG TABLET PO (08:40)
[2024-06-17] MEDS: EMPAGLIFLOZIN 10 MG TABLET PO (08:40)
[2024-06-17] MEDS: metFORMIN HCL 500 MG TABLET 1000 MG PO (08:40)
[2024-06-17] MEDS: CLOPIDOGREL BISULFATE 75 MG TABLET PO (08:40)
--- NOTE | 2024-06-17 09:02 | PCCPR ---
Visited bed side- patient interested in starting Cardiac rehab [facility].
[2024-06-17] MEDS: LOSARTAN POTASSIUM 100 MG TABLET PO (09:09)
[2024-06-17] MEDS: FUROSEMIDE 40 MG TABLET PO (09:09)
[2024-06-17 11:46] LABS: Glucose Point of Care 154 mg/dl (65-105)
--- NOTE | 2024-06-17 12:37 | P.DS_ITS ---
DS: Admitting Diagnosis Discharge Date 06/17/24 Admitting Diagnosis Chest pain DS: Discharge Diagnosis Discharge Diagnosis (1) Chest pain: Qualifiers: Chest pain type: unspecified Qualified Code(s): R07.9 - Chest pain, unspecified Code(s): R07.9 - Chest pain, unspecified Status: Acute (2) Chronic heart failure with preserved ejection fraction (HFpEF): Code(s): I50.32 - Chronic diastolic (congestive) heart failure Status: Acute (3) Hypertension: Code(s): I10 - Essential (primary) hypertension Status: Acute (4) Type 2 diabetes mellitus: Qualifiers: Diabetes mellitus complication detail: with unspecified neuropathy Diabetes mellitus complication status: with neurologic complications Diabetes mellitus termite technician insulin use: with fci use Qualified Code(s): E11.40 - Type 2 diabetes mellitus with diabetic neuropathy, unspecified; Z79.4 - intermediate (current) use of insulin Code(s): E11.9 - Type 2 diabetes mellitus without complications Status: Acute (5) Chronic anticoagulation: Code(s): Z79.01 - intermediate (current) use of anticoagulants Status: Chronic (6) Obstructive sleep apnea on CPAP: Code(s): G47.33 - Obstructive sleep apnea (adult) (pediatric); Z99.89 - Dependence on other enabling machines and devices Status: Acute Plan The patient presented to the emergency department for evaluation of chest pain as detailed in HPI. Labs, imaging, EKG, and all reports were personally rev iewed. Cardiac catheterization done in early April showed moderate coronary disease for which maximal medical therapy was recommended. The chest discomfort he has been having is typical of his angina and has improved with nitro. He is already on amlodipine, isosorbide mononitrate, and carvedilol. He was on ranolazine in the past but stopped taking that due to side effects however due to recurrent angina it may be prudent to restart this medication. Cardiology has been consulted for their opinion as well. He appears euvolemic on examination. Blood pressures are stable. Initiate sliding scale insulin, Accu-Cheks, and hypoglycemic protocol. CPAP will be provided for the patient to use while hospitalized. His medications will be reviewed and resumed as appropriate. Findings and treatment plan were discussed with the patient. Questions were solicited and answered to satisfaction. The patient's medical management will be taken over by the hospitalist team in a.m. Morbidly obese patient with history of CAD presented with CP and light headedness, 3 sets of cardiac enzymes are negative, and no acute change seen on EKG seen by lithographic proofer, patient had a similar presentation recently in April and cardiac echo did not show any abnormalities and no further cardiac workup was recommended similarly lithographic proofer is recommending to monitor, on 06/15 lithographic proofer recommended cardiac cath to further evaluate patient c/o CP, today patient is schedule to have cath, will follow up and plan. to further evaluate c/o light headedness weakness of upper extremities CT scan was done and its normal and MRI of the brain as well did not show any acute changes in the brain, will monitor and further recommendation to follow. patient had cardiac cath it showed CAD and vessel was stented. patient is clinically stable, will discharge patient today. DS: Summary Hospital Course Hospital Course: Morbidly obese patient with history of CAD presented with CP and light headedness, 3 sets of cardiac enzymes are negative, and no acute change seen on EKG seen by lithographic proofer, patient had a similar presentation recently in April and cardiac echo did not show any abnormalities and no further cardiac workup was recommended similarly lithographic proofer is recommending to monitor, on 06/15 lithographic proofer recommended cardiac cath to further evaluate patient c/o CP, today patient is schedule to have cath, will follow up and plan. to further evaluate c/o light headedness weakness of upper extremities CT scan was done and its normal and MRI of the brain as well did not show any acute changes in the brain, will monitor and further recommendation to follow. Time Spent with Patient Time attestation: Total time spent providing and/or coordinating discharge services: Exam Narrative: Patient is comfortable, NAD HEENT: eyes are clear and none icteric LUNGS:CTA HEART: RR S1S2 ABD: BS+, Soft and nontender Lower extremities: no edema SKIN: nonjaundiced Neuro: grossly intact. DS: Data Data Completed and Pending Labs on day of discharge: Labs from last 24 hours 06/17/24 06/17/24 06/17/24 11:41 07:33 04:54 WBC 7.2 RBC 4.31 L Hgb 13.1 L Hct 39.2 L MCV 91.0 MCH 30.4 MCHC 33.4 RDW 13.4 Plt Count 110 L MPV 11.3 H Activ Coag Time Kaolin Sodium 136 L Potassium 4.1 Chloride 103 Carbon Dioxide 21 L Anion Gap 12 BUN 20 Creatinine 1.32 H Estim Creat Clear Calc 72 Estimated GFR 54 L Glucose 133 H POC Capillary Glucose 154 H 120 H Calcium 8.8 Magnesium 1.8 06/16/24 06/16/24 06/16/24 18:59 13:35 13:24 WBC RBC Hgb Hct MCV MCH MCHC RDW Plt Count MPV Activ Coag Time Kaolin 233 H 227 H Sodium Potassium Chloride Carbon Dioxide Anion Gap BUN Creatinine Estim Creat Clear Calc Estimated GFR Glucose POC Capillary Glucose 192 H Calcium Magnesium 06/16/24 06/16/24 13:17 12:50 WBC RBC Hgb Hct MCV MCH MCHC RDW Plt Count MPV Activ Coag Time Kaolin 694 H 274 H Sodium Potassium Chloride Carbon Dioxide Anion Gap BUN Creatinine Estim Creat Clear Calc Estimated GFR Glucose POC Capillary Glucose Calcium Magnesium Discharge Plan Discharge Attending physician on discharge: Anthony Boswell Consulting providers: Paola Nolen; Mathew Landon; Moira Olson; Fernando Modi; Heath Dobbins; Odalis Norwood; Ash Wilson Discharging Clinician: Mansi Hodges Patient Disposition: Home Activity: as tolerated Diet: heart healthy Discharge Instructions: Patient to follow discharge care instruction from his lithographic proofer and follow up as scheduled, patient to follow up with his primary care provider as soon as possible. patient is instructed if any symptoms worsen to go to nearest ER. [facility] [address] [place] [address] DISCHARGE INSTRUCTIONS - POST RADIAL CATH Activity 1. No driving for 24 hours. 2. No lifting more than 5 lb with affected arm for 1 week. 3. May shower ( tomorrow) but no excessive soaking of affected hand/wrist (such as washing dishes), swimming pool or hot tub for 5 days. Wound Care 1. May remove arm board in the morning. 2. May remove gauze dressing in the morning and put Band-Aid over affected radial site. Keep site covered for 3 days. 3. Observe for redness, drainage, swelling or bleeding. Medications DO NOT STOP YOUR MEDICATIONS ONLY YOUR AIR INTERCEPT CONTROLLER CAN STOP THE FOLLOWING MEDICATIONS - PLEASE CALL THE OFFICE WITH QUESTIONS. *Aspirin *Ticagrelor (Brilinta) *Atorvastatin *Lisinopril or ARB *Metoprolol tartrate or succinate *Clopidogrel (Plavix) *Prasugrel (Effient) Important Reminders 1. Keep your stent card in your wallet at all times 2. Follow a heart healthy diet paying extra attention to cholesterol and fats. 3. Stay hydrated. 4. If you have chest pain unrelieved by rest or nitroglycerin (if prescribed) call 911 immediately. 5. If you miss one dose of Brilinta (if prescribed) take a tablet at the next time due. If you miss 2 doses take a tablet when you remember and resume at the next time due. *For any other questions please call the office at [phone]. Office hours are 8AM 4:30PM Thursday through Thursday. Patient Instructions: Antibiotic Form, Clopidogrel (By mouth), Rivaroxaban (By mouth), Heart Failure (GEN), Chest Pain (GEN), Heart Catheterization (DC) Patient Language: Estonian Stand Alone Forms: General Discharge Information Follow-up/Referrals: Angelina,JOVITA Junior [Primary Care Provider] - Paola Nolen MD [Physician] - Discharge Medications: New clopidogrel 75 mg Tablet 75 mg PO QAM Qty: 30 0RF Continued albuterol sulfate 90 mcg/actuation HFA aerosol inhaler 2 puff inhalation Q4-6H PRN (Reason: shortness of breath or wheezing) 30 Days Qty: 8.5 0RF isosorbide mononitrate 60 mg tablet extended release 24 hr 120 mg PO DAILY albuterol sulfate [Ventolin HFA] 90 mcg/actuation HFA aerosol inhaler 2 puff INHALATION Q4-6H PRN (Reason: Shortness Of Breath) loratadine [Claritin] 10 mg Tablet 10 mg PO DAILY PRN (Reason: allergy symptoms) aspirin [Children's Aspirin] 81 mg tablet,chewable 81 mg PO DAILY losartan 100 mg tablet 100 mg PO DAILY carvedilol [Coreg] 12.5 mg Tablet 12.5 mg PO Q12HR Qty: 60 0RF nitroglycerin [Nitrostat] 0.4 mg Tablet, Sublingual 0.4 mg sublingual Q5MIN PRN (Reason: Chest Pain) Qty: 26 0RF omeprazole 40 mg capsule,delayed release(DR/EC) 40 mg PO DAILY Qty: 30 0RF tamsulosin 0.4 mg capsule 0.4 mg PO HS Qty: 30 0RF Jardiance 10 mg tablet 10 mg PO DAILY Qty: 30 0RF atorvastatin 80 mg tablet 80 mg PO DAILY cyclobenzaprine 10 mg tablet 10 mg PO Q8H PRN (Reason: muscle spasm) Trulicity 3 mg/0.5 mL pen injector 3 mg SUBCUT WEEKLY Patient Comments: TAKES ON FRIDAYS furosemide 40 mg tablet 40 mg PO DAILY rivaroxaban [Xarelto] 2.5 mg tablet 2.5 mg PO BID Qty: 60 0RF bupropion HCl [Wellbutrin SR] 150 mg tablet sustained-release 12 hr 150 mg PO BID amlodipine 10 mg tablet 10 mg PO DAILY alprazolam 0.25 mg tablet 0.25 mg PO HS Rx Instructions: at bedtime Held metformin 1,000 mg tablet 1,000 mg PO BID Hold Instructions: hold until ThursdayJune 20 Date of admission: 06/13/24 18:39 Primary Care Provider: AngelinaSandi Admitting Provider: Anthony Boswell Attending physician on admission: Mansi Hodges Condition: Stable Quality VTE Prophylaxis VTE prophylaxis: pharmacologic ordered (on rivaroxaban)
== END 2024-06-17 13:30 | disposition home or self-care (01) | DRG 322 ==
LOC: ANHED 18:43 → ANHIMU 19:11
PROVIDERS: Emergency Medicine; Internal Medicine Interventional Cardiology; Physician Assistant; Admitting Provider General Practice; Emergency Provider Emergency Medicine; PCP Registered Nurse; Visit Provider Family Medicine
PROC: 4A023N7 Measurement of Cardiac Sampling and Pressure, Left Heart, Percutaneous Approach (ICD-10-PCS; CPT 93452; principal; 2024-06-16 12:00)
PROC: 4A033BC Measurement of Arterial Pressure, Coronary, Percutaneous Approach (ICD-10-PCS; CPT 93571; 2024-06-16 12:00)
PROC: 4A023N7 Measurement of Cardiac Sampling and Pressure, Left Heart, Percutaneous Approach (ICD-10-PCS; 2024-06-16 12:00)
PROC: 4A023N7 Measurement of Cardiac Sampling and Pressure, Left Heart, Percutaneous Approach (ICD-10-PCS; 2024-06-16 12:00)
DX: I25.118 Atherosclerotic heart disease of native coronary artery with other forms of angina pectoris (principal); I50.32 Chronic diastolic (congestive) heart failure; I69.354 Hemiplegia and hemiparesis following cerebral infarction affecting left non-dominant side; R07.9 Chest pain, unspecified; I11.0 Hypertensive heart disease with heart failure; E78.5 Hyperlipidemia, unspecified; E11.42 Type 2 diabetes mellitus with diabetic polyneuropathy; E11.51 Type 2 diabetes mellitus with diabetic peripheral angiopathy without gangrene; E11.40 Type 2 diabetes mellitus with diabetic neuropathy, unspecified; E66.01 Morbid (severe) obesity due to excess calories; G47.33 Obstructive sleep apnea (adult) (pediatric); I25.2 Old myocardial infarction; J44.9 Chronic obstructive pulmonary disease, unspecified; K52.9 Noninfective gastroenteritis and colitis, unspecified; Z95.5 Presence of coronary angioplasty implant and graft; Z79.84 Long term (current) use of oral hypoglycemic drugs; Z79.82 Long term (current) use of aspirin; Z79.01 Long term (current) use of anticoagulants; Z99.89 Dependence on other enabling machines and devices; Z86.718 Personal history of other venous thrombosis and embolism; Z90.49 Acquired absence of other specified parts of digestive tract; Z87.891 Personal history of nicotine dependence; Z79.85 Long-term (current) use of injectable non-insulin antidiabetic drugs
CPT/HCPCS: 36415; 70450; 70553; 71046; 74018; 80048; 80053; 82948; 83690; 83735; 84484; 85025; 85027; 85055; 85610; 85730; 92978; 93005; 93458; 93571; 96374; 96375; 99285; A9270; A9579; C1725; C1753; C1769; C1874; C1887; C1894; C8929; C9600; J1644; J1815; J2003; J2250; J2270; J2305; J2405; J3010; J7030; J7040; Q9957

== ENCOUNTER 2024-06-28 13:10 | Emergency (ER) | payer MEDICARE, MEDICAID, SELFPAY ==
--- NOTE | ~2024-06-28 | XR_ITS ---
XR foot RT min 3V Ordering provider: Natalie Ahuja NP History: . dropped object onto Rt foot last P.M.,pain/swelling/bruising . Comparison: None. FINDINGS: BONES: No acute fracture or dislocation. JOINT SPACES: Narrowing of the proximal and distal interphalangeal joints. No tarsal coalition. SOFT TISSUES: Soft tissue swelling over the dorsum of the foot. Calcaneal spur. Ossification of the insertion of the tendo Achilles. IMPRESSION: No acute osseous abnormality of the right foot. Polyarticular osteoarthritic changes. Reviewed, dictated and finalized at location A.
[2024-06-28 13:20] VITALS: BP 134/100; PULSE 83; RESP 22; TEMP 36.3; O2SAT 97
--- NOTE | 2024-06-28 13:40 | ED_ITS ---
HPI - Extremity Injury (Lower) General Chief Complaint: Extremity Injury, Lower Stated Complaint: INJURED R FOOT Time Seen by Provider: 06/28/24 13:55 Source: patient and RN notes reviewed Mode of arrival: ambulatory Limitations: no limitations History of Present Illness HPI Narrative: 64-year-old male presents with concern for right foot pain. Reports last night he dropped a rolling pin on his foot. He reports bruising. Reports pain at rest in worse pain with weight-bearing. He denies decreased sensation, strength, range of motion in the foot or digits. MD complaint: foot injury Related Data Home Medications ?Medication ?Instructions ?Recorded ?Confirmed ?Last Taken ?Type amlodipine 10 mg tablet 10 mg PO DAILY 01/24/19 06/13/24 06/13/24 History bupropion HCl 150 mg tablet,12 hr 150 mg PO BID 01/24/19 06/13/24 06/13/24 History sustained-release (Wellbutrin SR) metformin 1,000 mg tablet 1,000 mg PO BID 01/24/19 06/13/24 06/13/24 History albuterol sulfate 90 mcg/actuation 2 puff inhalation Q4-6H PRN 01/09/20 06/13/24 12/24/23 History aerosol inhaler (Ventolin HFA) Shortness Of Breath isosorbide mononitrate 60 mg 120 mg PO DAILY 01/09/20 06/13/24 06/13/24 History tablet,extended release 24 hr loratadine 10 mg tablet (Claritin) 10 mg PO DAILY PRN allergy symptoms 03/15/20 06/13/24 12/24/23 History alprazolam 0.25 mg tablet 0.25 mg PO HS 08/21/21 06/13/24 06/12/24 History aspirin 81 mg chewable tablet 81 mg PO DAILY 09/29/21 06/13/24 06/13/24 History (Children's Aspirin) losartan 100 mg tablet 100 mg PO DAILY 05/02/24 06/13/24 06/13/24 History atorvastatin 80 mg tablet 80 mg PO DAILY 06/13/24 06/13/24 06/13/24 History cyclobenzaprine 10 mg tablet 10 mg PO Q8H PRN muscle spasm 06/13/24 06/13/24 Unknown History dulaglutide 3 mg/0.5 mL 3 mg subcut WEEKLY 06/13/24 06/13/24 06/10/24 History subcutaneous pen injector ([facility]) furosemide 40 mg tablet 40 mg PO DAILY 06/13/24 06/13/24 06/13/24 History budesonide 160 mcg-glycopyr 9 inh inhalation 06/28/24 Unknown History mcg-formot 4.8 mcg/actuation HFA inhaler (Breztri Aerosphere) Allergies Allergy/AdvReac Type Severity Reaction Status Date / Time No Known Allergies Allergy Unknown Verified 06/28/24 13:29 Review of Systems Review of Systems: CONSTITUTIONAL: Denies malaise, chills, sweats, or fever. SKIN: Denies rash or itching, open skin, laceration, abrasion, redness, warmth MUSCULOSKELETAL: Reports right foot pain, swelling, bruising NEUROLOGIC: Denies numbness, weakness All systems reviewed & are unremarkable except as noted in HPI and below PMFSH Past Medical History Medical History (Updated 06/28/24 @ 14:04 by Natalie Ahuja NP) Hypertension Coronary artery disease Stent to the distal circumflex and Left anterior descending in 2014. Left anterior descending stent in 04/2015. COVID Transient ischemic attack Diabetic peripheral neuropathy Peripheral vascular disease Deep venous thrombosis Gastric ulcer Obstructive sleep apnea on CPAP Hyperlipidemia Type 2 diabetes mellitus Gastroesophageal reflux disease Chronic obstructive pulmonary disease Cerebrovascular accident Mild left-sided weakness. Congestive heart failure BMI greater than 40 Chronic anticoagulation Hydronephrosis Psoriasis Depression Fracture of fifth toe, right, closed Kidney stones Pneumonia Myocardial infarction Seasonal allergies Surgical History Surgical History (Updated 06/13/24 @ 21:35 by Moira Olson PA-C) History of coronary artery stent placement History of tonsillectomy History of cholecystectomy History of lithotripsy History of rectal polypectomy History of cardiac catheterization 2 stents Family History Family History Mother Diabetes mellitus Arthritis Kidney stones Coronary artery disease Father Acute myocardial infarction Heart disease Kidney stones Hypertension Coronary artery disease Sibling Coronary artery disease Heart disease Hx of CABG Social History Social History Social History: Surrogate decision maker: Rena Dodd, friend. Code status: Full code. Smoking packs per day: 1 Smoking cigarettes per day: 20.0 Years smoked: 30 Smoking pack-years: 30.00 Smoking status: Former smoker Tobacco type: cigarettes Second hand tobacco smoke exposure: Yes Smoking end date: 02/17/24 Alcohol intake: never Drinks per week: 0 Substance use: never Substance use type: marijuana Last use: 10/01/2023 Do You Feel Safe in your Home?: Yes Lack of Transportation: No Lack of Food: Never True Current Housing: I Have Housing Concerned About Future Housing: No Difficulty Paying Gas/Electric Bills: No Difficulty Paying for Meds: No Currently Unemployed: No Education: High School Diploma/GED Difficulty w/ Childcare or Family Care: No Living arrangements: with roommate(s) Additional living arrangements comments: The patient lives in [place] with a roommate. He has no children. Occupation/Education: other Additional occupation/education comments: Disabled. Spiritual care concerns: No Comments At time of signature, agree with nursing past medical, surgical, social and family history. There is no relevant family history pertinent to the presenting complaint Exam Narrative: GENERAL: Well-appearing, well-nourished, and in no acute distress. HEAD: Normocephalic, atraumatic. EYES: PERRLA, conjunctivae clear NECK: Supple. CHEST: Speaks in full sentences. No respiratory distress. HEART: Regular rate and rhythm. Normal and equal peripheral pulses. EXTREMITIES: Right foot, ankle, digits have has grossly normal strength and sensation, grossly normal range of motion. Moderate dorsal foot edema and ecchymosis. 5/5 strength with ankle and digit flexion and extension. Normal sensation with sensitivity to light touch and pain. Dorsal foot tenderness. No open wounds, no skin tenting, no devitalized tissue or atrophy, no trophic changes, no obvious deformity, alignment normal, nearby joints and structures intact. Distal pulses palpable and equal bilaterally, skin warm, dry, pink. Capillary refill less than 3 seconds. SKIN: Warm, dry, no rash. NEURO: Alert and oriented x3. PSYCH: Normal mood and affect Course Course Emergency Course: Patient is aware of diagnosis, understands and agrees to treatment plan. Anticipatory guidance given. Patient agrees to follow-up as directed and is aware of reasons to seek care at the emergency department. Portions of this record may have been created with voice recognition software Level of Care: Express Care Visit Vital Signs Vital signs: Vital Signs Temperature 97.3 F L 06/28/24 13:20 Pulse Rate 83 06/28/24 13:20 Respiratory Rate 22 H 06/28/24 13:20 Blood Pressure 134/100 H 06/28/24 13:20 Pulse Oximetry 97 06/28/24 13:20 Oxygen Delivery Room Air 06/28/24 13:20 Temperature 97.3 F L 06/28/24 13:20 Pulse Rate 83 06/28/24 13:20 Respiratory Rate 22 H 06/28/24 13:20 Blood Pressure 134/100 H 06/28/24 13:20 Pulse Oximetry 97 06/28/24 13:20 Oxygen Delivery Room Air 06/28/24 13:20 Reviewed. MDM - Extremity Injury (Lower) MDM Narrative Medical decision making narrative: The patient was evaluated by myself in the [facility] care. History is obtained from patient who is an independent historian and physical exam was performed.? Available medical records were reviewed at this time. ? Exam findings show no acute concerns or changes; patient is non-toxic appearing and is in no distress. Patient is appropriate for outpatient treatment and follow-up. ? I have evaluated and discussed social determinants of health with the patient that could potentially impact subsequent diagnosis and treatment plans. ? Patients injury and pain is consistent with musculoskeletal etiology. No signs of neurological or vascular compromise on exam. Compartments and tissues are soft without signs of compartment syndrome. Pain is felt appropriate for further evaluation on an outpatient basis. Imaging Data My impression: Images reviewed, interpreted by radiologist, agree, see report. Radiologist's impression: XR foot RT min 3V Ordering provider: Natalie Ahuja NP History: . dropped object onto Rt foot last P.M.,pain/swelling/bruising . Comparison: None. FINDINGS: BONES: No acute fracture or dislocation. JOINT SPACES: Narrowing of the proximal and distal interphalangeal joints. No tarsal coalition. SOFT TISSUES: Soft tissue swelling over the dorsum of the foot. Calcaneal spur. Ossification of the insertion of the tendo Achilles. IMPRESSION: No acute osseous abnormality of the right foot. Polyarticular osteoarthritic changes. Critical Care Time Critical Care Time Critical Care Time: No Discharge Plan Discharge Clinical Impression: Contusion of foot Patient Disposition: Home Condition: Stable Instructions: Contusion in Adults (ED) Additional Instructions: Avoid activities that cause pain until the pain subsides. Ice to the area 20-30 minutes 4-6 times a day Elevate above heart Elastic wrap as directed for comfort for the next 5-7 days Tylenol for pain Follow up with your primary care provider if the condition is not improving within 1 week. If the condition worsens with numbness, tingling, decrease sensation with weakness seek treatment in the emergency room immediately. Patient Language: Qatari Prescriptions: No Action Henritri Aerosphere 160-9-4.8 mcg/actuation HFA aerosol inhaler INHALATION albuterol sulfate 90 mcg/actuation HFA aerosol inhaler 2 puff inhalation Q4-6H PRN (Reason: shortness of breath or wheezing) 30 Days Qty: 8.5 0RF isosorbide mononitrate 60 mg tablet extended release 24 hr 120 mg PO DAILY albuterol sulfate [Ventolin HFA] 90 mcg/actuation HFA aerosol inhaler 2 puff INHALATION Q4-6H PRN (Reason: Shortness Of Breath) loratadine [Claritin] 10 mg Tablet 10 mg PO DAILY PRN (Reason: allergy symptoms) aspirin [Children's Aspirin] 81 mg tablet,chewable 81 mg PO DAILY losartan 100 mg tablet 100 mg PO DAILY carvedilol [Coreg] 12.5 mg Tablet 12.5 mg PO Q12HR Qty: 60 0RF nitroglycerin [Nitrostat] 0.4 mg Tablet, Sublingual 0.4 mg sublingual Q5MIN PRN (Reason: Chest Pain) Qty: 26 0RF omeprazole 40 mg capsule,delayed release(DR/EC) 40 mg PO DAILY Qty: 30 0RF tamsulosin 0.4 mg capsule 0.4 mg PO HS Qty: 30 0RF Jardiance 10 mg tablet 10 mg PO DAILY Qty: 30 0RF atorvastatin 80 mg tablet 80 mg PO DAILY cyclobenzaprine 10 mg tablet 10 mg PO Q8H PRN (Reason: muscle spasm) Trulicity 3 mg/0.5 mL pen injector 3 mg SUBCUT WEEKLY Patient Comments: TAKES ON FRIDAYS furosemide 40 mg tablet 40 mg PO DAILY clopidogrel 75 mg Tablet 75 mg PO QAM Qty: 30 0RF rivaroxaban [Xarelto] 2.5 mg tablet 2.5 mg PO BID Qty: 60 0RF bupropion HCl [Wellbutrin SR] 150 mg tablet sustained-release 12 hr 150 mg PO BID amlodipine 10 mg tablet 10 mg PO DAILY metformin 1,000 mg tablet 1,000 mg PO BID alprazolam 0.25 mg tablet 0.25 mg PO HS Rx Instructions: at bedtime Follow-up/Referrals: Angelina,JOVITA Junior [Primary Care Provider] - Time of Disposition: 14:04
== END 2024-06-28 14:07 | disposition home or self-care (01) ==
PROVIDERS: Emergency Provider Nurse Practitioner; PCP Registered Nurse
DX: S90.31XA Contusion of right foot, initial encounter (principal); I25.10 Atherosclerotic heart disease of native coronary artery without angina pectoris; E11.9 Type 2 diabetes mellitus without complications; J44.9 Chronic obstructive pulmonary disease, unspecified; E78.5 Hyperlipidemia, unspecified; I10 Essential (primary) hypertension; I25.2 Old myocardial infarction; Z86.73 Personal history of transient ischemic attack (TIA), and cerebral infarction without residual deficits; Z87.891 Personal history of nicotine dependence; W20.8XXA Other cause of strike by thrown, projected or falling object, initial encounter
CPT/HCPCS: 73630; 99213; G0463

== ENCOUNTER 2024-07-02 15:22 | Inpatient (IN) | payer MEDICARE, MEDICAID, SELFPAY ==
[2024-07-02] VITALS (10 sets, daily range): BP systolic 121–152; BP diastolic 72–108; PULSE 71–93; RESP 16–27; TEMP 36.4–36.7; O2SAT 95–100; BMI 40.6
--- NOTE | ~2024-07-02 | XR_ITS ---
EXAMINATION: XR chest 2V Exam Date/Time: 07/02/2024 15:55 CDT HISTORY: chest pain Comparison: 06/13/2024. RESULT: Lines, tubes, and devices: Loop recorder. Lungs and pleura: No focal consolidation, pleural effusion, or pneumothorax. Mild bibasilar linear s car/atelectasis. Cardiomediastinal silhouette: Stable. Other: No acute osseous or upper abdominal finding. IMPRESSION: No acute cardiopulmonary process. Reviewed, dictated and finalized at location [facility].
--- NOTE | 2024-07-02 15:18 | PC.NURSE ---
Per patient, he was advised by the doctor who did the stent to not take aspirin for 6 months.
[2024-07-02 15:38] LABS: Basophils Percent Auto 0.3 % (0.2-1.2); Eosinophils Absolute Auto 0.1 K/mm3 (0-0.3); Eosinophils Percent Auto 1.6 % (0-4.4); Hematocrit 41.3 % (42.0-52.0); Hemoglobin 14.1 g/dL (14.0-18.0); Immature Granulocyte Absolute 0.01 K/mm3 (0.00-0.031); Immature Granulocyte Percent A 0.2 % (0-0.5); Immature Platelet Fraction Pct 5.2 % (0.9-11.2); Lymphocytes Absolute Auto 0.92 K/mm3 (0.9-3.2); Lymphocytes Percent Auto 14.5 % (18.3-44.2); Mean Corpuscular HGB Conc 34.1 g/dl (32-36); Mean Corpuscular Hemoglobin 30.4 pg (26-34); Mean Platelet Volume 10.9 fl (7.4-10.4); Monocytes Absolute Auto 0.5 K/mm3 (0.1-0.6); Monocytes Percent Auto 7.7 % (2.6-8.5); Neutrophils Absolute Auto 4.8 K/mm3 (1.3-6.7); Neutrophils Percent Auto 75.7 % (45.5-73.1); Platelet Count Result 129 k/mm3 (150-375); Red Blood Count 4.64 M/mm3 (4.6-6.20); Red Cell Distribution Width 13.6 % (11.5-14.5); White Blood Count 6.3 K/mm3 (4.5-10.0)
[2024-07-02 15:46] LABS: Prothrombin Time 13.3 Seconds (11.1-14.7)
[2024-07-02 15:47] LABS: Alanine Aminotransferase 37 U/L (6-50); Albumin Level 4.4 g/dL (3.5-5.1); Alkaline Phosphatase 69 U/L (38-126); Anion Gap 14 mmol/L (4-12); Aspartate Amino Transferase 27 U/L (17-59); Bilirubin,Total 0.6 mg/dL (0.2-1.3); Blood Urea Nitrogen 17 mg/dL (9-20); Calcium 9.1 mg/dL (8.4-10.2); Carbon Dioxide 20 mmol/L (22-30); Chloride 102 mmol/L (98-107); Estimated CRCL calculation 90 ml/min; Estimated Glomerular Filt Rate > 60; Glucose 300 mg/dL (65-110); Lipase 144 U/L (23-300); Partial Thromboplastin Time 28.5 Seconds (22.3-36.8); Potassium 4.2 mmol/L (3.4-5.0); Sodium 136 mmol/L (137-145)
[2024-07-02 15:59] LABS: Troponin I < 0.012 ng/mL (0.000-0.034)
--- NOTE | 2024-07-02 16:53 | ED.CHESTPAIN ---
HPI - Chest Pain General Chief Complaint: Chest Pain Stated Complaint: CP - recent cardiac stent Time Seen by Provider: 07/02/24 16:49 Source: patient Mode of arrival: ambulatory Limitations: no limitations History of Present Illness HPI narrative: Patient is 64 years old white male came to the ED from home by ambulance complaining of sudden onset of left chest tightness and pressure associated with shortness of breath after getting out of the shower of drying his body. 12/09, radiating to his neck and jaw and left upper extremity. Status post stent placement in our facility 1 week ago. Patient currently on Xarelto and Plavix. Patient received 2 tablets of nitroglycerin sublingual with slight improvement then pain came back up again. Currently patient pain is 8/10. He denies any fever, chills, nausea, vomiting, coughing. MD complaint: chest pain and chest heaviness Related Data Home Medications ?Medication ?Instructions ?Recorded ?Confirmed ?Last Taken ?Type amlodipine 10 mg tablet 10 mg PO DAILY 01/24/19 06/13/24 06/13/24 History bupropion HCl 150 mg tablet,12 hr 150 mg PO BID 01/24/19 06/13/24 06/13/24 History sustained-release (Wellbutrin SR) metformin 1,000 mg tablet 1,000 mg PO BID 01/24/19 06/13/24 06/13/24 History albuterol sulfate 90 mcg/actuation 2 puff inhalation Q4-6H PRN 01/09/20 06/13/24 12/24/23 History aerosol inhaler (Ventolin HFA) Shortness Of Breath isosorbide mononitrate 60 mg 120 mg PO DAILY 01/09/20 06/13/24 06/13/24 History tablet,extended release 24 hr loratadine 10 mg tablet (Claritin) 10 mg PO DAILY PRN allergy symptoms 03/15/20 06/13/24 12/24/23 History alprazolam 0.25 mg tablet 0.25 mg PO HS 08/21/21 06/13/24 06/12/24 History aspirin 81 mg chewable tablet 81 mg PO DAILY 09/29/21 06/13/24 06/13/24 History (Children's Aspirin) losartan 100 mg tablet 100 mg PO DAILY 05/02/24 06/13/24 06/13/24 History atorvastatin 80 mg tablet 80 mg PO DAILY 06/13/24 06/13/24 06/13/24 History cyclobenzaprine 10 mg tablet 10 mg PO Q8H PRN muscle spasm 06/13/24 06/13/24 Unknown History dulaglutide 3 mg/0.5 mL 3 mg subcut WEEKLY 06/13/24 06/13/24 06/10/24 History subcutaneous pen injector (Trulicity) furosemide 40 mg tablet 40 mg PO DAILY 06/13/24 06/13/24 06/13/24 History budesonide 160 mcg-glycopyr 9 inh inhalation 06/28/24 Unknown History mcg-formot 4.8 mcg/actuation HFA inhaler (Breztri Aerosphere) Allergies Allergy/AdvReac Type Severity Reaction Status Date / Time No Known Allergies Allergy Unknown Verified 07/02/24 15:25 Review of Systems Review of Systems: All systems reviewed & are unremarkable except as noted in HPI and below PMFSH Past Medical History Medical History Hypertension Coronary artery disease Stent to the distal circumflex and Left anterior descending in 2014. Left anterior descending stent in 04/2015. COVID Transient ischemic attack Diabetic peripheral neuropathy Peripheral vascular disease Deep venous thrombosis Gastric ulcer Obstructive sleep apnea on CPAP Hyperlipidemia Type 2 diabetes mellitus Gastroesophageal reflux disease Chronic obstructive pulmonary disease Cerebrovascular accident Mild left-sided weakness. Congestive heart failure BMI greater than 40 Chronic anticoagulation Hydronephrosis Psoriasis Depression Fracture of fifth toe, right, closed Kidney stones Pneumonia Myocardial infarction Seasonal allergies Surgical History Surgical History History of coronary artery stent placement History of tonsillectomy History of cholecystectomy History of lithotripsy History of rectal polypectomy History of cardiac catheterization 2 stents Family History Family History Mother Diabetes mellitus Arthritis Kidney stones Coronary artery disease Father Acute myocardial infarction Heart disease Kidney stones Hypertension Coronary artery disease Sibling Coronary artery disease Heart disease Hx of CABG Social History Social History Social History: Surrogate decision maker: Rena Dodd, friend. Code status: Full code. Smoking packs per day: 1 Smoking cigarettes per day: 20.0 Years smoked: 30 Smoking pack-years: 30.00 Smoking status: Former smoker Tobacco type: cigarettes Second hand tobacco smoke exposure: Yes Smoking end date: 02/17/24 Alcohol intake: never Drinks per week: 0 Substance use: never Substance use type: marijuana Last use: 10/01/2023 Do You Feel Safe in your Home?: Yes Lack of Transportation: No Lack of Food: Never True Current Housing: I Have Housing Concerned About Future Housing: No Difficulty Paying Gas/Electric Bills: No Difficulty Paying for Meds: No Currently Unemployed: No Education: High School Diploma/GED Difficulty w/ Childcare or Family Care: No Living arrangements: with roommate(s) Additional living arrangements comments: The patient lives in [place] with a roommate. He has no children. Occupation/Education: other Additional occupation/education comments: Disabled. Spiritual care concerns: No Exam Narrative: General appearance: Well-developed, well-nourished Skin: Normal color Head: Normocephalic, nontraumatic Eyes: Clear conjunctiva ENT: Oropharynx normal, ears normal, nose normal Neck: Supple, nontender Chest and respiratory: Airway patent, no respiratory distress, no accessory muscle use Heart: Regular rate/rhythm Abdomen: Soft, nontender, no organomegaly, quiet bowel sounds Vascular: Normal peripheral pulses, normal capillary refill. Musculoskeletal: Normal range of motion, nontender back Neurologic: Alert and oriented ?3, MEDICAL OFFICE RECEPTIONIST ASSISTANT is normal as tested, no gross motor deficit Course Consultations Consultation #1: DR GRIMM AGREED WITH THE PLAN OF ADMISSION AND NITROPASTE 1 IN AND SERIAL TROPONIN Date: 07/02/24 Time: 17:26 Vital Signs Vital signs: Vital Signs Pulse Rate 84 07/02/24 15:18 Respiratory Rate 27 H 07/02/24 15:18 Pulse Oximetry 99 07/02/24 15:18 Oxygen Delivery Room Air 07/02/24 15:18 Pulse Rate 93 07/02/24 15:47 Respiratory Rate 20 07/02/24 15:47 Blood Pressure 122/74 07/02/24 15:47 Pulse Oximetry 97 07/02/24 15:47 Oxygen Delivery Room Air 07/02/24 15:18 MDM - Chest Pain MDM Narrative Medical decision making narrative: Patient came to the ED complaining of left chest pain after finishing his shower Vital signs are stable Physical examination showed no significant abnormality Differential diagnosis include an stent restenosis, any stent thrombosis, incomplete revascularization, progression of coronary atherosclerosis, temporary discomfort after stent placement leading to transient irritation and inflammation, Blood workup today includes CBC, CMP, troponin, showed platelet 129, glucose 300, otherwise within normal limit Chest x-ray showed no acute cardiopulmonary disease EKG on arrival showed showed normal sinus rhythm, no a significant changes compared to the EKG on June 15, 2024 DIAGNOSIS CHEST PAIN, POST CORONARY ARTERY STENT PLACEMENT ADMIT TO HOSPITALIST DR. GRIMM THE MAILING JOGGER ON-CALL WAS CONSULTED AND AGREED WITH THE ABOVE Differential Diagnosis Differential diagnosis: Likely other (As above) Medical Records Data Attestation: I reviewed the patient's medical records. Lab Data Attestation: I reviewed the patient's lab results. 07/02/24 15:27 07/02/24 15:27 Labs: Lab Results 07/02/24 Range/Units 15:27 WBC 6.3 (4.5-10.0) K/mm3 RBC 4.64 (4.6-6.20) M/mm3 Hgb 14.1 (14.0-18.0) g/dL Hct 41.3 L (42.0-52.0) % MCV 89.0 (80-100) fl MCH 30.4 (26-34) pg MCHC 34.1 (32-36) g/dl RDW 13.6 (11.5-14.5) % Plt Count 129 L (150-375) k/mm3 MPV 10.9 H (7.4-10.4) fl Immature Gran % (Auto) 0.2 (0-0.5) % Neut % (Auto) 75.7 H (45.5-73.1) % Lymph % (Auto) 14.5 L (18.3-44.2) % [place] % (Auto) 7.7 (2.6-8.5) % Eos % (Auto) 1.6 (0-4.4) % Baso % (Auto) 0.3 (0.2-1.2) % Lymph # (Auto) 0.92 (0.9-3.2) K/mm3 [place] # (Auto) 0.5 (0.1-0.6) K/mm3 Eos # (Auto) 0.1 (0-0.3) K/mm3 Baso # (Auto) 0.0 (0.0-0.1) K/mm3 Abs Immat Gran (auto) 0.01 (0.00-0.031) K/mm3 Absolute Neuts (auto) 4.8 (1.3-6.7) K/mm3 Absolute Nucleated RBC 0.000 (0.0-0.012) K/mm3 Nucleated RBC % 0.0 (0.0-0.2) % % Immature Plt Fraction 5.2 (0.9-11.2) % PT 13.3 (11.1-14.7) Seconds INR 1.0 APTT 28.5 (22.3-36.8) Seconds Sodium 136 L (137-145) mmol/L Potassium 4.2 (3.4-5.0) mmol/L Chloride 102 (98-107) mmol/L Carbon Dioxide 20 L (22-30) mmol/L Anion Gap 14 H (4-12) mmol/L BUN 17 (9-20) mg/dL Creatinine 1.04 (0.7-1.3) mg/dL Estim Creat Clear Calc 90 ml/min Estimated GFR > 60 (59 - ) Glucose 300 H (65-110) mg/dL Calcium 9.1 (8.4-10.2) mg/dL Total Bilirubin 0.6 (0.2-1.3) mg/dL AST 27 (17-59) U/L ALT 37 (6-50) U/L Alkaline Phosphatase 69 (38-126) U/L Troponin I < 0.012 (0.000-0.034) ng/mL Total Protein 8.0 (6.3-8.2) g/dL Albumin 4.4 (3.5-5.1) g/dL Lipase 144 (23-300) U/L ECG Data EKG #1: Attestation: I personally reviewed and interpreted this ECG as follows: ECG completion date: 07/02/24 Interpretation: Normal sinus rhythm at 82 beats per minute, right bundle-branch block, consider inferior myocardial infarction age indeterminate, abnormal EKG, compared to EKG on July 14, 2024 no significant changes. Critical Care Time Critical Care Time Critical Care Time: No Discharge Plan Discharge Clinical Impression: Chest pain, Coronary artery disease status post coronary stent insertion Patient Disposition: Still a Patient Condition: Guarded Prognosis Additional Instructions: Admit to hospitalist Patient Language: Urdu Prescriptions: No Action Gabriel Aerosphere 160-9-4.8 mcg/actuation HFA aerosol inhaler INHALATION albuterol sulfate 90 mcg/actuation HFA aerosol inhaler 2 puff inhalation Q4-6H PRN (Reason: shortness of breath or wheezing) 30 Days Qty: 8.5 0RF isosorbide mononitrate 60 mg tablet extended release 24 hr 120 mg PO DAILY albuterol sulfate [Ventolin HFA] 90 mcg/actuation HFA aerosol inhaler 2 puff INHALATION Q4-6H PRN (Reason: Shortness Of Breath) loratadine [Claritin] 10 mg Tablet 10 mg PO DAILY PRN (Reason: allergy symptoms) aspirin [Children's Aspirin] 81 mg tablet,chewable 81 mg PO DAILY losartan 100 mg tablet 100 mg PO DAILY carvedilol [Coreg] 12.5 mg Tablet 12.5 mg PO Q12HR Qty: 60 0RF nitroglycerin [Nitrostat] 0.4 mg Tablet, Sublingual 0.4 mg sublingual Q5MIN PRN (Reason: Chest Pain) Qty: 26 0RF omeprazole 40 mg capsule,delayed release(DR/EC) 40 mg PO DAILY Qty: 30 0RF tamsulosin 0.4 mg capsule 0.4 mg PO HS Qty: 30 0RF Jardiance 10 mg tablet 10 mg PO DAILY Qty: 30 0RF atorvastatin 80 mg tablet 80 mg PO DAILY cyclobenzaprine 10 mg tablet 10 mg PO Q8H PRN (Reason: muscle spasm) Trulicity 3 mg/0.5 mL pen injector 3 mg SUBCUT WEEKLY Patient Comments: TAKES ON FRIDAYS furosemide 40 mg tablet 40 mg PO DAILY clopidogrel 75 mg Tablet 75 mg PO QAM Qty: 30 0RF rivaroxaban [Xarelto] 2.5 mg tablet 2.5 mg PO BID Qty: 60 0RF bupropion HCl [Wellbutrin SR] 150 mg tablet sustained-release 12 hr 150 mg PO BID amlodipine 10 mg tablet 10 mg PO DAILY metformin 1,000 mg tablet 1,000 mg PO BID alprazolam 0.25 mg tablet 0.25 mg PO HS Rx Instructions: at bedtime Follow-up/Referrals: Angelina,JOVITA Junior [Primary Care Provider] -
--- OUTSIDE RECORDS SUMMARY | 2024-07-02 17:26 | XMS_ITS | Clinical Summary ---
Author Organization [facility] [address] Address [address] [place] [address] Care Team Providers Care Charge Weigher Name Role Phone Sandi Alfaro Primary Care [...] 1.5 mg/0.5 mL pen injector 8 Active loratadine 10 mg capsule Take by [...] 24 hr tabletIndicatio ns:Coronary artery disease of [place] artery of [place] heart with stable angina pectoris TAKE 2 [...] CAPSULE BY MOUTH EVERYDAY AT BEDTIME Active carvediloL (COREG) 12.5 mg tablet Take 1 tablet (12.5 mg total) by mouth 2 (two) times a day with meals 60 tablet 11 5 07/02/19 26 Active clopidogreL (PLAVIX) 75 mg tabletIndicatio ns:Thrombosis Prevention after PCI Take 1 tablet (75 mg total) by mouth daily 90 tablet 2 5 03/28/19 26 Active furosemide (LASIX) 40 mg tablet Take 1 tablet (40 mg total) by mouth daily 90 tablet 3 5 07/02/19 26 Active carvediloL (COREG) 25 mg tablet Take 1 tablet (25 mg total) by mouth 2 (two) times a day with meals 07/02/19 25 Discontinu ed(Alterna te therapy) Active Problems Problem Noted Date Diagnosed Date Hematuria, gross 11/13/2021 Chronic heart failure with preserved ejection fr action 11/12/2018 Cryptogenic stroke 07/06/2018 Status post placement of implantable loop record er 10/13/2017 Overview (10/13/2017): [employer] Reveal Loop Recorder. Dx; Cryptogenic Stroke. DOI 10/12/[address] Willoughby. [employer] remote monitoring. TIA (transient ischemic attack) 10/06/2017 S/P coronary artery stent placement 12/17/2016 Morbid obesity with BMI of 45.0-49.9, adult ([facility]) 08/13/2016 Mixed anxiety depressive disorder 05/01/2015 Overview (06/07/2016): Anxiety and depression Coronary artery disease of n ative artery of [place] heart with stable angina pectoris 02/20/2015 Overview (06/07/2016): Coronary artery disease involving [place] coronary artery of [place] heart with other form of angina pectoris CVA, old, hemiparesis 02/20/2015 Overview (06/07/2016): CVA, old, hemiparesis Mixed diabetic hyperlipidemi a associated with type 2 diabetes mellitus ([facility]) 02/20/2015 Overview (06/07/2016): DM type 2 with diabetic dyslipidemia Hypertensive heart disease with congestive heart failure 02/20/2015 Overview (06/07/2016): Hypertensive heart disease with diastolic heart failure TAMIR on CPAP 10/17/2014 Overview (06/07/2016): TAMIR on CPAP Diabetes mellitus 10/17/2014 Overview (06/07/2016): DM (diabetes mellitus) Hypertension associated with diabetes 10/17/2014 Overview (06/07/2016): HTN (hypertension), benign Encounters Date Type Department Care Team Description 06/29/2024 Telephone [facility] Cardiology [address] [place] [address] [address] [place] [phone] Fernando Modi MD 06/21/2024 Orders Only [facility] Cardiology [address] [place] [address] [place] [phone] Paola Nolen MD 06/13/2024 Orders Only [facility] Health Information Management [address] [place] [id number] Paola Nolen MD 05/16/2024 Orders Only [facility] Cardiology [address] [place] [address] [place] [phone] Julio Richardson MD 05/10/2024 Orders Only [facility] Cardiology [address] [place] [address] [place] [phone] Fernando Modi MD 04/22/2024 Results Follow-Up [facility] Cardiology [address] [place] [address] [place] [phone] Harini Mann RN Chest pain, unspecified type (Primary Dx); Cardiovascular stress test abnormal 04/21/2024 8:15 AM FINANCE EFFECTIVENESS MANAGER Ancillary Procedure [facility] Cardiology [address] [place] [address] [place] [phone] Coronary artery disease of [place] artery of [place] heart with stable angina pectoris 04/20/2024 11:15 AM FINANCE EFFECTIVENESS MANAGER Ancillary Procedure [facility] Cardiology [address] [place] [address] [place] [phone] Coronary artery disease of [place] artery of [place] heart with stable angina pectoris 04/11/2024 Telephone [facility] Cardiology [address] [place] [address] [place] [phone] Fernando Modi MD NM stress test instructions 04/04/2024 1:00 PM FINANCE EFFECTIVENESS MANAGER Ancillary Procedure [facility] Cardiology [address] [place] [address] [place] [phone] Coronary artery disease of [place] artery of [place] heart with stable angina pectoris from Last 3 Months Surgical History Surgery [...] on file Legal Sex Male 3:15 AM FINANCE EFFECTIVENESS MANAGER Gender Identity Male 09/03/2018 6:22 AM CDT Sexual Orientation Straight 09/03/2018 6: 22 AM CDT Obstetrics History Last Filed Vital Signs Vital Sign Reading Time Taken Comments Blood Pressure 132/72 03/28/2024 9:10 AM FINANCE EFFECTIVENESS MANAGER Pulse 82 01/18/2024 8:53 AM FINANCE EFFECTIVENESS MANAGER Temperature - - Respiratory Rate - - Oxygen Saturation 96% 03/28/2024 9:10 AM FINANCE EFFECTIVENESS MANAGER Inhaled Oxygen Concentration - - Weight 137.4 kg (303 lb) 03/28/2024 9:10 AM FINANCE EFFECTIVENESS MANAGER Height 182.9 cm (6') 03/28/2024 9:10 AM FINANCE EFFECTIVENESS MANAGER Body Mass Index 41.09 03/28/2024 9:10 AM FINANCE EFFECTIVENESS MANAGER Plan of Treatment Health Maintenance Due [...] 2009 Hemoglobin A1C 11/26/2018 05/26/2018 Covid-19 Vaccine (2023-2 5 season) 2023 12/31/2020, 05/11/2020, 04/13/2020 Abdominal Aortic Aneurysm (A AA) Screen 2024 04/28/2017 Well Visit 65+ 2024 Lipid Panel 10/19/2024 10/20/2023, 04/30, 07/01/2022, Additional history exists DTaP/Tdap/Td Vaccine (3 - Td or Tdap) 02/25/2026 02/26/2016, 11/22/2014 Influenza Vaccine Completed 12/16/2023, , 12/31/2021, Additional history exists Procedures Procedure Name Priority Date/Time Associated Diagnosis Comments CARDIOLOGY DOCUMENT SCAN Routine 06/17/2024 8:53 AM CDT CARDIOLOGY DOCUMENT SCAN Routine 06/16/2024 8:51 AM CDT CARDIOLOGY DOCUMENT SCAN Routine 06/16/2024 8:47 AM CDT CARDIOLOGY DOCUMENT SCAN Routine 06/15/2024 8:40 AM CDT CARDIOLOGY DOCUMENT SCAN Routine 06/14/2024 8:26 AM CDT CARDIOLOGY DOCUMENT SCAN 06/13/2024 CARDIOLOGY DOCUMENT SCAN Routine 05/04/2024 10:59 AM FINANCE EFFECTIVENESS MANAGER CARDIOLOGY DOCUMENT SCAN Routine 05/03/2024 10:55 AM FINANCE EFFECTIVENESS MANAGER CARDIOLOGY DOCUMENT SCAN Routine 05/03/2024 8:33 AM FINANCE EFFECTIVENESS MANAGER CARDIOLOGY DOCUMENT SCAN Routine 05/02/2024 10:52 AM FINANCE EFFECTIVENESS MANAGER CARDIOLOGY DOCUMENT SCAN Routine 05/02/2024 10:10 AM FINANCE EFFECTIVENESS MANAGER NM MPI SPECT (REST AND/OR STRESS) MULTIPLE STUDIES Schedule Routine, Read Routine (OP Routine) 04/20/2024 12:17 PM FINANCE EFFECTIVENESS MANAGER Coronary artery disease of [place] artery of [place] heart with stable angina pectoris TRANSTHORACIC ECHO (TTE) COMPLETE W DOPPLER/CF W CONTRAST Routine 04/04/2024 1:37 PM FINANCE EFFECTIVENESS MANAGER Coronary artery disease of [place] artery of [place] heart with stable angina pectoris LIPID PANEL Routine 10/20/2023 from Last 3 Months or Most Recently Relevant to Health Maintenance Results * Cardiology Document Scan (06/17/2024 8:53 AM CDT) Anatomical Region Laterality Modality Other us Paola Velagapudi MD CV CARDIAC SERVICES PROCEDU RES Final Result * Cardiology Document Scan (06/16/2024 8:51 AM CDT) Anatomical Region Laterality Modality Other Result Maria Eugenia Nolen MD CV CARDIAC SERVICES PROCEDU RES Final Result * Cardiology Document Scan (06/16/2024 8:47 AM CDT) Anatomical Region Laterality Modality Other Result Maria Eugenia Nolen MD CV CARDIAC SERVICES PROCEDU RES Final Result * Cardiology Document Scan (06/15/2024 8:40 AM CDT) Anatomical Region Laterality Modality Other Result Maria Eugenia Nolen MD CV CARDIAC SERVICES PROCEDU RES Final Result * Cardiology Document Scan (06/14/2024 8:26 AM CDT) Anatomical Region Laterality Modality Other Result Maria Eugenia Nolen MD CV CARDIAC SERVICES PROCEDU RES Final Result * Cardiology Document Scan (06/13/2024) Anatomical Region Laterality Modality Other Result Maria Eugenia Nolen MD CV CARDIAC SERVICES PROCEDU RES Final Result * Cardiology Document Scan (05/04/2024 10:59 AM FINANCE EFFECTIVENESS MANAGER) Anatomical Region Laterality Modality Other Result Maria Eugenia Julio Richardson MD CV CARDIAC SERVICES PRO CEDURES Final Result * Cardiology Document Scan (05/03/2024 10:55 AM FINANCE EFFECTIVENESS MANAGER) Anatomical Region Laterality Modality Other Julio Richardson MD CV CARDIAC SERVICES PRO CEDURES Final Result * Cardiology Document Scan (05/03/2024 8:33 AM FINANCE EFFECTIVENESS MANAGER) Anatomical Region Laterality Modality Other Result Maria Eugenia Richardson MD CV CARDIAC SERVICES PRO CEDURES Final Result * Cardiology Document Scan (05/02/2024 10:52 AM FINANCE EFFECTIVENESS MANAGER) Anatomical Region Laterality Modality Other Fernando Modi MD CV CARDIAC SERVICES PROCEDURES F inal Result * Cardiology Document Scan (05/02/2024 10:10 AM FINANCE EFFECTIVENESS MANAGER) Anatomical Region Laterality Modality Other Fernando Modi MD CV CARDIAC SERVICES PROCEDURES F inal Result * NM MPI SPECT (Rest and/or Stress) Multiple Studies (04/20/2024 12:17 PM FINANCE EFFECTIVENESS MANAGER) Anatomical Region Laterality Modality Body N/A Nuclear Medicine 04/20/2024 11:1 5 AM FINANCE EFFECTIVENESS MANAGER Narrative 04/21/2024 4:44 PM FINANCE EFFECTIVENESS MANAGER [facility] Cardiology [address] [facility] [address] [id number] [address] [facility] [address], [place] [address] P:[phone] P:[phone] MPI Imaging Report Patient Name: KLAUDIA HALEYTomas : 1960 Study Date: 04/20/2024 11:15:21 AM Gender: M Tech: [facility] Location: [facility] Provider: IFRAH GIBSON Height(Cm): 182.9 BSA: [...] Smoker, and I25.118 Atherosclerotic heart disease of [place] coronary artery with other forms of angina [...] By: Husam Raymundo MD 04/21/2024 4:43:33 PM FINANCE EFFECTIVENESS MANAGER Electronically Signed By: Husam Raymundo MD 04/21/2024 4:43:33 PM FINANCE EFFECTIVENESS MANAGER Procedure Note Husam Raymundo MD - 04/21/2024 [facility] Cardiology [address] [facility] [address], [place] [address] [address] [facility] [address], [place], [place] [address] P:[phone] P:[phone] MPI Imaging Report Patient Name: KLAUDIA HALEY B : 1960 Study Date: 04/20/2024 11:15:21 AM Gender: M Tech: [facility] Location: [facility] Provider: IFRAH GIBSON Height(Cm): 182.9 BSA: [...] Smoker, and I25.118 Atherosclerotic heart disease of [place] coronary artery withother forms of angina pectoris. [...] By: Husam Raymundo MD 04/21/2024 4:43:33 PM FINANCE EFFECTIVENESS MANAGER Electronically Signed By: Husam Raymundo MD 04/21/2024 4:43:33 PM FINANCE EFFECTIVENESS MANAGER us Ifrah Gibson SHIFT STACKER IMG NM PROCEDURES Final R esult * TRANSTHORACIC ECHO (TTE) COMPLETE W DOPPLER/CF W CONTRAST (04/04/2024 1:37 PM FINANCE EFFECTIVENESS MANAGER) LV EF 75 % CONS SCIMAGE Anatomical Region Laterality Modality Ultrasound 04/04/2024 12:5 7 PM FINANCE EFFECTIVENESS MANAGER Narrative 04/04/2024 3:50 PM FINANCE EFFECTIVENESS MANAGER [facility] Cardiology [address] [facility] [address], [place] [address] [address] [facility] [address], [place] [address] P:[phone] P:[phone] Echocardiographic Report Patient Name: KLAUDIA HALEYTomas : 1960 Study Date: 04/04/2024 12:57:00 PM Gender: M Tech: Location: [place] Ref Provider: IFRAH GIBSON Height(Cm): 183 BSA: 2.64 Weight(Kg): 137.4 Heart Rate: 79 BP: 132 / 72 Quality: Definity contrast agent used to enhance endocardial border definition Order Provider: IFRAH GIBSON PROCEDURES: Echocardiographic Report: Transthoracic echocardiogram with complete 2D, M-Mode, color Doppler examination and Definity contrast. INDICATIONS: Coronary Artery Disease, Shortness of breath, and I25.118 Atherosclerotic heart disease of [place] coronary artery with other forms of angina [...] FINDINGS: Interpretation Site: Exam was interpreted at [facility]. Left Ventricle: Normal left ventricular [...] views. Electronically Signed By: Todd Kwan MD, [facility] 04/04/2024 3:49:55 PM FINANCE EFFECTIVENESS MANAGER Procedure Note Todd Kwan MD - 04/04/2024 [facility] Medical [facility] Cardiology [facility] [facility] [address], [place] [address] [address] [facility] [address], [address], [place] [address] P:[phone] P:[phone] Echocardiographic Report Patient Name: KLAUDIA HALEY B : 1960 Study Date: 04/04/2024 12:57:00 PM Gender: M Tech: Location: [place] Ref Provider: IFRAH GIBSON Height(Cm): 183 BSA: 2.64 Weight(Kg): 137.4 Heart Rate: 79 BP: 132 / 72 Quality: Definity contrast agent used to enhance endocardial borderdefinition Order Provider: IFRAH GIBSON PROCEDURES: Echocardiographic Report: Transthoracic echocardiogram with complete 2D, M-Mode, color Dopplerexamination and Definity contrast. INDICATIONS: Coronary Artery Disease, Shortness of breath, and I25.118 Atheroscleroticheart disease of [place] coronary artery with other forms of angina pectoris. MEASUREMENTS: 2D/MM Value Range Doppler ValueRange EF Mod BP 63 % [ 52 - 72 ] AV Mean PG 5mmHg Estimated EF 75 % AV Peak Oamr 1.38m/s [ 1.00 - 1.70 ] LVIDd [...] FINDINGS: Interpretation Site: Exam was interpreted at [facility]. Left Ventricle: Normal left ventricular [...] views. Electronically Signed By: Todd Kwan MD, [facility] 04/04/2024 3:49:55 PM FINANCE EFFECTIVENESS MANAGER Ifrah Gibson NP CV ECHO PROCEDURES [...] Most Recently Relevant to Health Maintenance Insurance [facility] MEDICARE MEDICARE [facility] Care Teams Charge Weigher Relationship Specialty Start Date End Date Sandi Alfaro PA PCP - General Nurse Practitioner 08/21/17
--- OUTSIDE RECORDS SUMMARY | 2024-07-02 17:26 | XMS_ITS | Referral Summary ---
Author Organization [place] [address] Address [address] [place] [address] Care Team Providers Care Merchandise Carrier Name Role Phone Sandi Alfaro Primary Care Provider + Encounters Date Type Department Care Team Description 06/29/2024 Telephone [facility] Cardiology [address] [facility] [address] [place] [address] Fernando Modi MD 06/21/2024 Orders Only [facility] Cardiology [address] [facility] [address] [place] [address] Paola Nolen MD 06/13/[address] [facility] Health Information Management [address] [place] [address] Paola Nolen MD 05/16/2024 Orders Only [facility] Cardiology [address] [facility] [address] [place] [address] Julio Richardson MD 05/10/2024 Orders Only [facility] Cardiology [address] [facility] [address] [place] [address] Fernando Modi MD 04/22/2024 Results Follow-Up [facility] Cardiology [address] [facility] [address] [place] [address] Harini Mann, CAR Chest pain, unspecified type (Primary Dx); Cardiovascular stress test abnormal 04/21/2024 8:15 AM URINALYSIS TECHNICIAN Ancillary Procedure [facility] Cardiology [address] [facility] [address] [place] [address] Coronary artery disease of [place] artery of [place] heart with stable angina pectoris 04/20/2024 11:15 AM URINALYSIS TECHNICIAN Ancillary Procedure [facility] Cardiology [address] [facility] [address] [place] [phone] Coronary artery disease of [place] artery of [place] heart with stable angina pectoris 04/11/2024 Telephone [facility] Cardiology [address] [place] [address] [address] [place] [phone] Fernando Modi MD NM stress test instructions 04/04/2024 1:00 PM URINALYSIS TECHNICIAN Ancillary Procedure [facility] Cardiology [address] [place] [address] [address] [place] [phone] Coronary artery disease of [place] artery of [place] heart with stable angina pectoris from Last 3 Months Allergies No known [...] 24 hr tabletIndicatio ns:Coronary artery disease of [place] artery of [place] heart with stable angina pectoris TAKE 2 [...] Cryptogenic Stroke. DOI 10/12/[address] Willoughby. [facility] remote monitoring. TIA (transient ischemic attack) 10/06/2017 S/P coronary artery stent placement 12/17/2016 Morbid obesity with BMI of 45.0-49.9, adult ([facility]) 08/13/2016 Mixed anxiety depressive disorder 05/01/2015 Overview (06/07/2016): Anxiety and depression Coronary artery disease of [place] artery of [place] heart with stable angina pectoris 02/20/2015 Overview (06/07/2016): Coronary artery disease involving [place] coronary artery of [place] heart with other form of angina pectoris CVA, old, hemiparesis 02/20/2015 Overview (06/07/2016): CVA, old, hemiparesis Mixed diabetic hyperlipidemi a associated with type 2 diabetes mellitus ([facility]) 02/20/2015 Overview (06/07/2016): DM type 2 [...] on file Legal Sex Male 3:15 AM URINALYSIS TECHNICIAN Gender Identity Male 09/03/2018 6:22 AM CDT Sexual Orientation Straight 09/03/2018 6: 22 AM CDT Last Filed Vital Signs Vital Sign Reading Time Taken Comments Blood Pressure 132/72 03/28/2024 9:10 AM URINALYSIS TECHNICIAN Pulse 82 01/18/2024 8:53 AM URINALYSIS TECHNICIAN Temperature - - Respiratory Rate - - Oxygen Saturation 96% 03/28/2024 9:10 AM URINALYSIS TECHNICIAN Inhaled Oxygen Concentration - - Weight 137.4 kg (303 lb) 03/28/2024 9:10 AM URINALYSIS TECHNICIAN Height 182.9 cm (6') 03/28/2024 9:10 AM URINALYSIS TECHNICIAN Body Mass Index 41.09 03/28/2024 9:10 AM URINALYSIS TECHNICIAN Plan of Treatment Not on file Procedures [...] CARDIOLOGY DOCUMENT SCAN Routine 05/04/2024 10:59 AM URINALYSIS TECHNICIAN CARDIOLOGY DOCUMENT SCAN Routine 05/03/2024 10:55 AM URINALYSIS TECHNICIAN CARDIOLOGY DOCUMENT SCAN Routine 05/03/2024 8:33 AM URINALYSIS TECHNICIAN CARDIOLOGY DOCUMENT SCAN Routine 05/02/2024 10:52 AM URINALYSIS TECHNICIAN CARDIOLOGY DOCUMENT SCAN Routine 05/02/2024 10:10 AM URINALYSIS TECHNICIAN NM MPI SPECT (REST AND/OR STRESS) MULTIPLE STUDIES Schedule Routine, Read Routine (OP Routine) 04/20/2024 12:17 PM URINALYSIS TECHNICIAN Coronary artery disease of [place] artery of [place] heart with stable angina pectoris TRANSTHORACIC ECHO (TTE) COMPLETE W DOPPLER/CF W CONTRAST Routine 04/04/2024 1:37 PM URINALYSIS TECHNICIAN Coronary artery disease of [place] artery of [place] heart with stable angina pectoris LIPID PANEL [...] * Cardiology Document Scan (05/04/2024 10:59 AM URINALYSIS TECHNICIAN) Anatomical Region Laterality Modality Other Result Maria Eugenia Richardson MD CV CARDIAC SERVICES PRO CEDURES Final Result * Cardiology Document Scan (05/03/2024 10:55 AM URINALYSIS TECHNICIAN) Anatomical Region Laterality Modality Other Result Maria Eugenia Richardson MD CV CARDIAC SERVICES PRO CEDURES Final Result * Cardiology Document Scan (05/03/2024 8:33 AM URINALYSIS TECHNICIAN) Anatomical Region Laterality Modality Other Julio Richardson MD CV CARDIAC SERVICES PRO CEDURES Final Result * Cardiology Document Scan (05/02/2024 10:52 AM URINALYSIS TECHNICIAN) Anatomical Region Laterality Modality Other Fernando Modi MD CV CARDIAC SERVICES PROCEDURES F inal Result * Cardiology Document Scan (05/02/2024 10:10 AM URINALYSIS TECHNICIAN) Anatomical Region Laterality Modality Other Fernando Modi MD CV CARDIAC SERVICES PROCEDURES F inal Result * NM MPI SPECT (Rest and/or Stress) Multiple Studies (04/20/2024 12:17 PM URINALYSIS TECHNICIAN) Anatomical Region Laterality Modality Body N/A Nuclear Medicine 04/20/2024 11:1 5 AM URINALYSIS TECHNICIAN Narrative 04/21/2024 4:44 PM URINALYSIS TECHNICIAN [facility] Medical Group Cardiology [address] [facility] [address] [address] [facility] [address] [address] P:[phone] P:[phone] MPI Imaging Report Patient Name: KLAUDIA HALEY B : 1960 Study Date: 04/20/2024 11:15:21 AM Gender: M Tech: [facility] Location: [facility] Provider: IFRAH GIBSON Height(Cm): 182.9 [...] Smoker, and I25.118 Atherosclerotic heart disease of [place] coronary artery with other forms of angina [...] By: Husam Raymundo MD 04/21/2024 4:43:33 PM URINALYSIS TECHNICIAN Electronically Signed By: Husam Raymundo MD 04/21/2024 4:43:33 PM URINALYSIS TECHNICIAN Procedure Note Husam Raymundo MD - 04/21/2024 [facility] Medical Group Cardiology [address], [place] [address] [id number], [place] [address] P:[phone] P:[phone] MPI Imaging Report Patient Name: KLAUDIA HALEY B : 1960 Study Date: 04/20/2024 11:15:21 AM Gender: M Tech: [facility] Location: [facility] Provider: IFRAH GIBSON Height(Cm): 182.9 [...] Smoker, and I25.118 Atherosclerotic heart disease of [place] coronary artery withother forms of angina pectoris. [...] By: Husam Raymundo MD 04/21/2024 4:43:33 PM URINALYSIS TECHNICIAN Electronically Signed By: Husam Raymundo MD 04/21/2024 4:43:33 PM URINALYSIS TECHNICIAN Ifrah Gibson SEARCH ENGINE OPTIMIZATION CONSULTANT IMG NM PROCEDURES Final R esult * TRANSTHORACIC ECHO (TTE) COMPLETE W DOPPLER/CF W CONTRAST (04/04/2024 1:37 PM URINALYSIS TECHNICIAN) LV EF 75 % CONS SCIMAGE Anatomical Region Laterality Modality Ultrasound 04/04/2024 12:5 7 PM URINALYSIS TECHNICIAN Narrative 04/04/2024 3:50 PM URINALYSIS TECHNICIAN [facility] Medical Group Cardiology [address], [place] [address] [facility] [address], [place] [address] P:[phone] P:[phone] Echocardiographic Report Patient Name: KLAUDIA HALEY B : 1960 Study Date: 04/04/2024 12:57:00 PM Gender: M Tech: Location: [facility] Provider: IFRAH GIBSON Height(Cm): 183 BSA: 2.64 Weight(Kg): 137.4 Heart Rate: 79 BP: 132 / 72 Quality: Definity contrast agent used to enhance endocardial border definition Order Provider: IFRAH GIBSON PROCEDURES: Echocardiographic Report: Transthoracic echocardiogram with complete 2D, M-Mode, color Doppler examination and Definity contrast. INDICATIONS: Coronary Artery Disease, Shortness of breath, and I25.118 Atherosclerotic heart disease of [place] coronary artery with other forms of angina [...] FINDINGS: Interpretation Site: Exam was interpreted at [facility]. Left Ventricle: Normal left ventricular size. Definity [...] Electronically Signed By: Todd Kwan MD, [facility] 04/04/2024 3:49:55 PM URINALYSIS TECHNICIAN Procedure Note Todd Kwan MD - 04/04/2024 [facility] Medical Group Cardiology [address], [place] [address] [facility] [address], [place] [address] P:[phone] P:[phone] Echocardiographic Report Patient Name: KLAUDIA HALEY Tomas : 1960 Study Date: 04/04/2024 12:57:00 PM Gender: M Tech: Location: [facility] Provider: IFRAH GIBSON Height(Cm): 183 BSA: 2.64 Weight(Kg): 137.4 Heart Rate: 79 BP: 132 / 72 Quality: Definity contrast agent used to enhance endocardial borderdefinition Order Provider: IFRAH GIBSON PROCEDURES: Echocardiographic Report: Transthoracic echocardiogram with complete 2D, M-Mode, color Dopplerexamination and Definity contrast. INDICATIONS: Coronary Artery Disease, Shortness of breath, and I25.118 Atheroscleroticheart disease of [place] coronary artery with other forms of angina [...] FINDINGS: Interpretation Site: Exam was interpreted at [facility]. Left Ventricle: Normal left ventricular size. Definity [...] Electronically Signed By: Todd Kwan MD, [facility] 04/04/2024 3:49:55 PM URINALYSIS TECHNICIAN Ifrah Gibson NP CV ECHO PROCEDURES Final [...] Recently Relevant to Health Maintenance Insurance [employer] MEDICARE MEDICARE [facility] Care Teams Merchandise Carrier Relationship Specialty Start Date End Date Sandi Alfaro PA PCP - General Nurse Practitioner 08/21/17
--- OUTSIDE RECORDS SUMMARY | 2024-07-02 17:26 | XMS_ITS ---
Author Organization [facility] Address [address] [place], [place] [address] Care Team Providers Care Command Center Analyst Name Role Phone PIETER WALSH Unavailable [phone] Sandi Alfaro Unavailable Unavailable Allergies No Known Allergies REASON FOR VISIT Patient presents for at-risk foot care . The patient has painful toenails that are causing difficulty with ambulation and shoegear. The onset is gradual. The patient has diabetes mellitus Medications Medication SIG (Take, Route, Frequency, Duration) Notes Start Date End Date Status clotrimazole 10 MG/ML Topical Cream CUTANEOUS clotrimazole 10 MG/ML Topical CreamOriginal Medicationclotrimazole 10 MG/ML Topical Cream *Reorder from [employer] for eRx and Interaction Alerts* 7 Active betamethasone 0.5 MG/ML / clotrimazole 10 MG/ML Topical Cream CUTANEOUS betamethasone 0.5 MG/ML / clotrimazole 10 MG/ML Topical CreamOriginal Medicationbetamethasone 0.5 MG/ML / clotrimazole 10 MG/ML Topical Cream *Reorder from [employer] for eRx and Interaction Alerts* 7 Active Augmented betamethasone 0.5 MG/ML Topical Cream CUTANEOUS Augmented betamethasone 0.5 MG/ML Topical CreamOriginal MedicationAugmented betamethasone 0.5 MG/ML Topical Cream *Reorder from [employer] for eRx and Interaction Alerts* 7 Active clobetasol propionate 0.0005 MG/MG Topical Ointment [Temovate] CUTANEOUS clobetasol propionate 0.0005 MG/MG Topical Ointment [Temovate]Original Medicationclobetasol propionate 0.0005 MG/MG Topical Ointment [Temovate] *Reorder from [employer] for eRx and Interaction Alerts* 7 Active betamethasone 0.5 MG/ML / clotrimazole 10 MG/ML Topical Cream [Lotrisone] CUTANEOUS betamethasone 0.5 MG/ML / clotrimazole 10 MG/ML Topical Cream [Lotrisone]Original Medicationbetamethasone 0.5 MG/ML / clotrimazole 10 MG/ML Topical Cream [Lotrisone] *Reorder from [employer] for eRx and Interacti 7 Active Vital Signs Weight 330 lbs 06/27/2024 Weight-kg 149.69 kg 06/27/2024 Height 72.00 in 06/27/2024 Height-cm 182.88 cm 06/27/2024 BMI 44.75 kg/m2 06/27/2024 Encounters Encounter Location Date Provider Diagnosis [facility] [address] [place] [id number] 06/27/2024 PIETER SNOOK Tinea unguium B35.1 ; Pain in right toe(s) M79.674 ; Pain in left toe(s) M79.675 ; Atherosclerosis of [place] arteries of extremities with intermittent claudication, bilateral legs I70.213 and Type 2 diabetes mellitus with other circulatory complications E11.59 Assessments Encounter Date Diagnosis (ICD Code) Assessment Notes Treatment Notes Treatment Clinical Notes Section Notes 06/27/2024 Tinea unguium (ICD-10 - B35.1) NAIL DEBRIDEMENT: Nails 1-5 Bilateral were debrided extensively with nail nippers and emery board, reducing length and girth to pink healthy tissue with any subungual debris and necrotic tissue removed 06/27/2024 Pain in right toe(s) (ICD-10 - M79.674) 06/27/2024 Pain in left toe(s) (ICD-10 - M79.675) 06/27/2024 Atherosclerosis of [place] arteries of extremities with intermittent claudication, bilateral legs (ICD-10 - I70.213) 06/27/2024 Type 2 diabetes mellitus with other circulatory [...] sooner if problems develop. Provider Name:PIETER WALSH, 10:10:00 AM, [address], [facility], [place], [place], [id number], Provider Name:PIETER WALSH, 08:10:00 AM, [address], [facility], [place], [place], [id number], Progress Notes * KLAUDIA HALEY BDOB:[birth year] (64 yo M)Acc No.[id number]:06/27/2024 Patient: KLAUDIA DUONG Provider: Kristal Walsh DPM :1960 A ge:64 Y S ex:Male Date:06/27/2024 Address:[address] [place], [place] [address], [facility] Subjective: * Chief Complaints: * 1 . [...] Date last seen by Dr. Alfaro was 2024., Initials LB. * Medical History: M edical History Verified. * Family History: F ather: PRN - [...] betamethasone 0.5 MG/ML Topical Cream *Reorder from [employer] for eRx and Interaction Alerts*, Taking betamethasone 0.5 MG/ML / clotrimazole 10 MG/ML Topical Cream CUTANEOUS , Notes to Pharmacist: betamethasone 0.5 MG/ML / clotrimazole 10 MG/ML Topical CreamOriginal Medicationbetamethasone 0.5 MG/ML / clotrimazole 10 MG/ML Topical Cream *Reorder from [employer] for eRx and Interaction Alerts*, Taking betamethasone 0.5 MG/ML / clotrimazole 10 MG/ML Topical Cream [Lotrisone] CUTANEOUS , Notes to Pharmacist: betamethasone 0.5 MG/ML / clotrimazole 10 MG/ML Topical Cream [Lotrisone]Original Medicationbetamethasone 0.5 MG/ML / clotrimazole 10 MG/ML Topical Cream [Lotrisone] *Reorder from [employer] for eRx and Interacti, Taking clobetasol propionate 0.0005 MG/MG Topical Ointment [Temovate] CUTANEOUS , Notes to Pharmacist: clobetasol propionate 0.0005 MG/MG Topical Ointment [Temovate]Original Medicationclobetasol propionate 0.0005 MG/MG Topical Ointment [Temovate] *Reorder from [employer] for eRx and Interaction Alerts*, Taking clotrimazole 10 MG/ML Topical Cream CUTANEOUS , Notes to Pharmacist: clotrimazole 10 MG/ML Topical CreamOriginal Medicationclotrimazole 10 MG/ML Topical Cream *Reorder from [employer] for eRx and Interaction Alerts*, Medication List reviewed and reconciled with the patient * Allergies: N .K.D.A. Objective: * Vitals: W t:330lbs, Wt-k.69 kg, Ht: 72.00 in, Ht-cm: 182.88 cm, BMI:44.75Index, Body Surface Area: 2.75. * Examination: P hysical Examination: General appearance: [...] - M79.675 4 . A therosclerosis of [place] arteries of extremities with intermittent claudication, bilateral [...] well as the Amputation Prevention Guide. * Immunizations: Immunization record has been reviewed and updated. * Follow Up: 1 0 - 12 weeks (Reason: At-Risk Foot care, sooner if problems develop.) * Billing Information: * Visit Code: * Procedure Codes: * Electronic signature of PIETER WALSH DPM on 07/02/2024 at 05:26 PM CDT Sign off status: Pending * Provider: Kristal Walsh DPM Date: 0 06/27/2024 Generated for Michelle chi/Danielle/Nimesh on: 0 07/02/2024 05:26 PM CDT History and Physical Notes * [...] Date last seen by Dr. Alfaro was 2024., Initials LB Examination Category Sub-Category Detail [...]
--- OUTSIDE RECORDS SUMMARY | 2024-07-02 17:26 | XMS_ITS | Encounter Summary ---
Author Organization [facility] Address [address] [place] [address] Care Team Providers Care Showroom Manager Name Role Phone Sandi Alfaro Primary Care Provider + Encounter Details Date Type Department Care Team (Late st Contact Info) Description 06/29/2024 Telephone [facility] Cardiology [address] [facility] [address] [place] [address] Fernando Modi MD [address] [place] [address] Social History Tobacco Use Types Packs/Day Years Used Date Smoking Tobacco: Some Days Cigarettes 0.3 15 Smokeless Tobacco: Never Alcohol Use Standard Drinks/Week Comments Yes 0 (1 standard drink = 0.6 oz pur e alcohol) Sex and Gender Information Value Date Recorded Sex Assigned at Not on file Legal Sex Male 3:15 AM [place] GUIDE Gender Identity Male 09/03/2018 6:22 AM CDT Sexual Orientation Straight 09/03/2018 6: 22 AM CDT documented as of this encounter Ordered Prescriptions Prescription Sig Dispense Quantity Refills Last Filled Start Date End Date furosemide (LASIX) 40 mg tablet Take 1 tablet (40 mg total) by mouth daily 90 tablet 3 07/01/2024 07/01/2025 clopidogreL (PLAVIX) 75 mg tabletIndications: Thrombosis Prevention after PCI Take 1 tablet (75 mg total) by mouth daily 90 tablet 2 07/01/2024 03/28/2025 carvediloL (COREG) 12.5 mg tablet Take 1 tablet (12.5 mg total) by mouth 2 (two) times a day with meals 60 tablet 11 07/01/2024 07/01/2025 documented in this encounter Miscellaneous Notes * Telephone Encounter - Husam Ordaz RN - 07/01/2024 12:35 PM CDT Spoke with pt. Pt has had numerous med changes since [facility], including PCI at . Reviewed medication list with pt. Submitted refills for cardiac meds as requested. Advised pt to bring updated med list to appointment on 07/19. Pt verbalizes understanding. * Telephone Encounter - Jil Rueda - 07/01/2024 11:57 AM CDT Pt called would like a nurse to call him back because he is very confused about some of his medications. I tried telling him that we do not show them in his current list of medications but he believes that we have prescribed them I guess. Please advise Thank you Contact: * Telephone Encounter - Raghav Martines MA - 06/29/2024 2:51 PM CDT NOT ON MED LIST AND ACCORDING TO CT LAST OFFICE NOTE HE HAS NOT BEEN TAKING IT * Telephone Encounter - Kenzie Dodd - 06/29/2024 2:02 PM CDT Patient requesting refill for Furosemide 40 mg with 90 day supply. Please send to [facility] in [facility] in [place]. Thank you. Contact: documented in this encounter Plan of Treatment Not on file documented as of this encounter Visit Diagnoses Not on filedocumented in this encounter Discontinued Medications Medication Sig Discontinue Reason Start Date End Da te carvediloL (COREG) 25 mg tablet Take 1 tablet (25 mg total) by mouth 2 (two) times a day with meals Alternate therapy 07/01/2024 documented as of this encounter Care Teams Showroom Manager Relationship Specialty Start Date End Date Sandi Alfaro PA PCP - General Nurse Practitioner 08/21/17 documented as of this encounter
--- OUTSIDE RECORDS SUMMARY | 2024-07-02 17:27 | XMS_ITS | Encounter Summary ---
Author Organization [facility] Address [address] [place] [address] Care Team Providers Care Supervisor Vine Fruit Farming Name Role Phone Sandi Alfaro Primary Care Provider [phone] Cheryl Huston RN Unavailable Unavailable Encounter Details Date Type Department Care Team (Late st Contact Info) Description 08/18/2023 [employer] Message Enc [facility] Medical Group Multispecialty Care - [address], [address] [place] [phone] [employer]), [facility] Provider Results Social History Tobacco Use Types Packs/Day Years Used Date Smoking Tobacco: Every Day Cigarettes 0.3 40 Smokeless Tobacco: Never Comments:currently smoking 2 -3 cigarettes a day Alcohol Use Standard Drinks/Week Comments Yes 0 (1 standard drink = 0.6 oz pur e alcohol) very rarely 6 beers/year [facility] Utilities Answer Date Recorded In the past 12 months has [facility], gas, oil, or water [employer] threatened to shut off services in your [...] any clubs o r organizations such as taoism groups, unions, fraternal or athletic groups, or [...] place to sleep or slept in a fci (including now)? No 05/12/2023 Sex and Gender Information Value Date Recorded Sex Assigned at Male 03/31/2024 8:58 AM DECORATIVE ENGRAVER Legal Sex Male 8:01 PM CDT Gender [...] Care Team (Late st Contact Info) Description 07/20/2024 8:40 AM CDT Office Visit [facility] Medical Group Family & Internal Medicine [address] [address] Sandi Alfaro APNP [address] [place] [phone] documented as of this encounter Visit Diagnoses Not on filedocumented in this encounter Additional Health Concerns Assessment Noted Time PHQ-9 Depression Total Score: 0 05/21/19 24 11:21 AM CDT documented as of this encounter Care Teams Supervisor [employer] Relationship Specialty Start Date End Date Sandi Alfaro APNP Family & Internal Medicine [address] [address] PCP - General [facility] NEEDLE CONTROL [place] 04/28/17 Cheryl Huston seed corn manager production (Ambulatory) REGISTERED NURSE 03/23/19 documented as of this encounter
--- OUTSIDE RECORDS SUMMARY | 2024-07-02 17:27 | XMS_ITS | Encounter Summary ---
Author Organization [facility] Address [address] [place] [address] Care Team Providers Care Wide Area Network Engineer Name Role Phone Sandi Alfaro Primary Care Provider [phone] Sandi Alfaro Unavailable [phone] Cheryl Huston RN Unavailable Unavailable Encounter Details Date Type Department Care Team (Latest Contact Info) Description 10/26/2017 Abstract [facility] , Shay Hughes MD [...] Sex Assigned at Male 03/31/2024 8:58 AM ENERGY SALES BROKER Legal Sex Male 8:01 PM CDT Gender Identity Not on file Sexual Orientation Not on file documented as of this encounter Plan of Treatment Upcoming Encounters Date Type Department Care Team (Late st Contact Info) Description 07/20/2024 8:40 AM CDT Office Visit [facility] Family & Internal Medicine [address] [address] Sandi Alfaro APNP [address] [place] [address] documented as of this encounter Visit Diagnoses Not on filedocumented in this encounter Additional Health Concerns Infection Onset Date Last Indicated Resolved Time COVID-19 Rule Out 10/24/2019 11/25/2019 11/27/2019 1:56 AM CDT COVID-19 Rule Out 05/03/2020 05/03/2020 05/03/2020 3:25 PM ENERGY SALES BROKER COVID-19 Rule Out 05/12/2023 05/12/2023 05/13/2023 12:01 AM CDT Influenza - Seasonal 05/14/2023 05/14/2023 024 12:32 AM CDT documented as of this encounter Care Teams Wide Area Network Engineer Relationship Specialty Start Date End Date Sandi Alfaro APNP Family & Internal Medicine [address] [address] PCP - General ADVANCED PRACTICE DOORPERSON OR LUGGAGE PORTER 04/28/17 Sandi Alfaro APNP [address] [place] [address] PCP - Med Group - MSSP Attributed Provider 03/02/15 03/01/22 Cheryl Huston, manager grant (Ambulatory) REGISTERED NURSE 03/23/19 documented as of this encounter
--- OUTSIDE RECORDS SUMMARY | 2024-07-02 17:27 | XMS_ITS | Clinical Summary ---
Author Organization [facility] Address [address] [place] [address] Care Team Providers Care Engineering Surveyor Name Role Phone Sandi Alfaro CARE SUPPORT REPRESENTATIVE-POWER MARKETER Primary Care Provider Source Comments [facility],non-owned Affiliates and Associated Physician Practices is amultiple site organization consisting of ambulatory clinics and hospital sitesin [place], [place], [place] and [place]. This disclosure is being madepursuant to the Care Everywhere program and may not contain all information available regarding this patient. Last updated 17.[facility] Allergies No known active allergies Medications * [...] on file Legal Sex Male 5:35 PM ARTIFICIAL GLASS EYE MAKER Gender Identity Not on file Sexual Orientation [...] FLEX SIG - COLON CA SCREENING 1959 DTAP/TDAP/TD VACCINES (1 - Tdap) 1978 PNEUMOCOCCAL VACCINE 50+ (1 of 2 - PCV) 1978 ZOSTER [...] ve Non-react kendell 05/26/2018 5:12 PM CDT [facility] Comment: Neither HIV-1 p24 Antigen nor HIV-1/HIV-2 Antibodies are detected. Blood BLOOD SPECIMEN / Unknown Venipuncture / Unknown 05/26/2018 4:21 PM CDT 05/26/2018 4:26 PM CDT Jim nAn MD LAB - HEMATOLOGY ORDERABLES F inal Result Performing Organization Address [facility] Co de Phone Number [address] [phone] * HEPATITIS C AB SCREEN RFLX NAAT QUANT (05/26/2018 4:21 PM CDT) Hepatitis C Antibody Non-react kendell Non-reac tive 05/26/2018 5:13 PM CDT [facility] Comment: Hepatitis C Antibody screen indicates [...] LAB - CHEMISTRY ORDERABLES Fi nal Result Performing Organization Address City/[facility]/[place] [address], [facility] [phone] from Last 3 Months or Most Recently Relevant to Health Maintenance Insurance MEDICARE MEDICAID - OUT OF STATE MEDICARE MEDICAID - [place] Advance Directives * Full Code (Latest Code Status on File) Date Activated Date Inactivated Comments 05/26/2018 2:01 PM 05/28/2018 11:56 AM Care Teams Engineering Surveyor Relationship Specialty Start Date End Date Sandi Alfaro APRN-POWER MARKETER [facility] [place] [address] PCP - General 08/27/21
--- OUTSIDE RECORDS SUMMARY | 2024-07-02 17:27 | XMS_ITS ---
Author Organization [facility] Address [address] [place], [place] [id number] Care Team Providers Care Retail Marketing Manager Name Role Phone PIETER WALSH Unavailable [phone] Sandi Alfaro Unavailable Unavailable Allergies No Known [...] clotrimazole 10 MG/ML Topical Cream *Reorder from Point for eRx and Interaction Alerts* 7 Active betamethasone 0.5 MG/ML / clotrimazole 10 MG/ML Topical Cream [Lotrisone] CUTANEOUS betamethasone 0.5 MG/ML / clotrimazole 10 MG/ML Topical Cream [Lotrisone]Original Medicationbetamethasone 0.5 MG/ML / clotrimazole 10 MG/ML Topical Cream [Lotrisone] *Reorder from Point for eRx and Interacti 7 Active Augmented betamethasone 0.5 MG/ML Topical Cream CUTANEOUS Augmented betamethasone 0.5 MG/ML Topical CreamOriginal MedicationAugmented betamethasone 0.5 MG/ML Topical Cream *Reorder from [employer] for eRx and Interaction Alerts* 7 Active clobetasol propionate 0.0005 MG/MG Topical Ointment [Temovate] CUTANEOUS clobetasol propionate 0.0005 MG/MG Topical Ointment [Temovate]Original Medicationclobetasol propionate 0.0005 MG/MG Topical Ointment [Temovate] *Reorder from [employer] for eRx and Interaction Alerts* 7 Active clotrimazole 10 MG/ML Topical Cream CUTANEOUS clotrimazole 10 MG/ML Topical CreamOriginal Medicationclotrimazole 10 MG/ML Topical Cream *Reorder from Point for eRx and Interaction Alerts* 7 Active Encounters Encounter Location Date Provider Diagnosis [facility] [address] [place], [place] [id number] 03/28/2024 PIETER SNOOK Tinea unguium B35.1 ; Pain in right toe(s) M79.674 ; Pain in left toe(s) M79.675 ; Atherosclerosis of [place] arteries of extremities with intermittent claudication, bilateral [...] toe(s) (ICD-10 - M79.675) 03/28/2024 Atherosclerosis of [place] arteries of extremities with intermittent claudication, bilateral [...] problems develop. Provider Name:PIETER WALSH, 10:10:00 AM, [address], [facility], [place], [place], [id number], Provider Name:PIETER WALSH, 08:10:00 AM, [address], [facility], [place], [place], [phone], Progress Notes * SUDHA, KLAUDIA BDOB:[birth year] (63 yo M)Acc No.[id number]:03/28/2024 Patient: KLAUDIA DUONG Provider: Kristal Walsh DPM :1960 A ge:63 Y S ex:Male Date:03/28/2024 Address:[address] [place] [address] [id number] Subjective: * Chief Complaints: * Mundo gonzales [...] betamethasone 0.5 MG/ML Topical Cream *Reorder from Point for eRx and Interaction Alerts*betamethasone 0.5 MG/ML / clotrimazole 10 MG/ML Topical Cream CUTANEOUS , Notes to Pharmacist: betamethasone 0.5 MG/ML / clotrimazole 10 MG/ML Topical CreamOriginal Medicationbetamethasone 0.5 MG/ML / clotrimazole 10 MG/ML Topical Cream *Reorder from Point for eRx and Interaction Alerts*betamethasone 0.5 MG/ML / clotrimazole 10 MG/ML Topical Cream [Lotrisone] CUTANEOUS , Notes to Pharmacist: betamethasone 0.5 MG/ML / clotrimazole 10 MG/ML Topical Cream [Lotrisone]Original Medicationbetamethasone 0.5 MG/ML / clotrimazole 10 MG/ML Topical Cream [Lotrisone] *Reorder from Point for eRx and Interacticlobetasol propionate 0.0005 MG/MG Topical Ointment [Temovate] CUTANEOUS , Notes to Pharmacist: clobetasol propionate 0.0005 MG/MG Topical Ointment [Temovate]Original Medicationclobetasol propionate 0.0005 MG/MG Topical Ointment [Temovate] *Reorder from Point for eRx and Interaction Alerts*clotrimazole 10 MG/ML Topical Cream CUTANEOUS , Notes to Pharmacist: clotrimazole 10 MG/ML Topical CreamOriginal Medicationclotrimazole 10 MG/ML Topical Cream *Reorder from [facility] for eRx and Interaction Alerts*Medication List reviewed and reconciled with the patientTaking Augmented betamethasone 0.5 MG/ML Topical Cream CUTANEOUS , Notes to Pharmacist: Augmented betamethasone 0.5 MG/ML Topical CreamOriginal MedicationAugmented betamethasone 0.5 MG/ML Topical Cream *Reorder from [facility] for eRx and Interaction Alerts*Taking betamethasone 0.5 MG/ML / clotrimazole 10 MG/ML Topical Cream CUTANEOUS , Notes to Pharmacist: betamethasone 0.5 MG/ML / clotrimazole 10 MG/ML Topical CreamOriginal Medicationbetamethasone 0.5 MG/ML / clotrimazole 10 MG/ML Topical Cream *Reorder from [facility] for eRx and Interaction Alerts*Taking betamethasone 0.5 MG/ML / clotrimazole 10 MG/ML Topical Cream [Lotrisone] CUTANEOUS , Notes to Pharmacist: betamethasone 0.5 MG/ML / clotrimazole 10 MG/ML Topical Cream [Lotrisone]Original Medicationbetamethasone 0.5 MG/ML / clotrimazole 10 MG/ML Topical Cream [Lotrisone] *Reorder from [facility] for eRx and InteractiTaking clobetasol propionate 0.0005 MG/MG Topical Ointment [Temovate] CUTANEOUS , Notes to Pharmacist: clobetasol propionate 0.0005 MG/MG Topical Ointment [Temovate]Original Medicationclobetasol propionate 0.0005 MG/MG Topical Ointment [Temovate] *Reorder from [facility] for eRx and Interaction Alerts*Taking clotrimazole 10 MG/ML Topical Cream CUTANEOUS , Notes to Pharmacist: clotrimazole 10 MG/ML Topical CreamOriginal Medicationclotrimazole 10 MG/ML Topical Cream *Reorder from [facility] for eRx and Interaction [...] - M79.675 4 . A therosclerosis of [place] arteries of extremities with intermittent claudication, bilateral [...] Information: * Visit Code: * Procedure Codes: 80511 DEBRIDE NAIL, 6 OR MORE. Modifiers: Q8 * STOCK FEEDER Sign off status: Completed true * Provider: Kristal Walsh DPM Date: 0 03/28/2024 Generated for Michelle chi/Danielle/Jeremyitting on: 0 07/02/2024 05:26 PM CDT History [...]
--- OUTSIDE RECORDS SUMMARY | 2024-07-02 17:27 | XMS_ITS | Encounter Summary ---
Author Organization [facility] Address [address] [place] [address] Care Team Providers Care Tire Builder Operator Name Role Phone Sandi Alfaro Primary Care Provider [phone] Sandi Alfaro Unavailable [phone] Cheryl Huston RN Unavailable Unavailable Encounter Details Date Type Department Care Team (Late st Contact Info) Description 05/13/2021 [employer] Message Enc [facility] Multispecialty Care - [facility] [address] [place] [address] Eliza, [facility] Provider CPAP Social History Tobacco Use Types Packs/Day Years Used Date Smoking Tobacco: Every Day Cigarettes 0.3 40 Smokeless Tobacco: Never Comments:want to quit but gary s alot of stress right [id number] smoking about 3-4 cigaretts a day Alcohol Use Standard Drinks/Week Comments Yes 0 (1 standard drink = 0.6 oz pur e alcohol) very rarely 6 beers/year PHQ-2 Answer Date Recorded PHQ-2 Score - If the patient scores above 3, please move on to questions 3-9 4 01/23/2021 Sex and Gender Information Value Date Recorded Sex Assigned at Male 03/31/2024 8:58 AM PATIENT SCHEDULER Legal Sex Male 8:01 PM CDT Gender [...] Description 07/20/2024 8:40 AM CDT Office Visit [facility] Family & Internal Medicine [address] [address] Sandi Alfaro APNP [address] [place] [address] documented as of this encounter Visit Diagnoses Not on filedocumented in this encounter Additional Health Concerns Infection Onset Date Last Indicated Resolved Time COVID-19 Rule Out 05/12/2023 05/12/2023 05/13/2023 12:01 AM CDT Influenza - Seasonal 05/14/2023 05/14/2023 024 12:32 AM CDT Assessment Noted Time PHQ-9 Depression Total Score: 7 01/24/20 21 1:37 PM PATIENT SCHEDULER documented as of this encounter Care Teams Tire Builder Operator Relationship Specialty Start Date End Date Sandi Alfaro APNP Family & Internal Medicine [address] [address] PCP - General ADVANCED PRACTICE STEREOPTICIAN 04/28/17 Sandi Alfaro APNP [address] [place] [address] PCP - Med Group - MSSP Attributed Provider 03/02/15 03/01/22 Cheryl Huston, therapist radiation (Ambulatory) REGISTERED NURSE 03/23/19 documented as of this encounter
--- OUTSIDE RECORDS SUMMARY | 2024-07-02 17:27 | XMS_ITS | Patient Health Record ---
Author Organization [facility] Address [address] [place], [place] [id number] Care Team Providers Care Grades 7 And 8 Visiting Teacher Name Role Phone PIETER WALSH Unavailable [phone] Sandi Alfaro Unavailable Unavailable Allergies No Known Allergies Reason For Referral No Information Medications Medication SIG (Take, Route, Frequency, Duration) Notes Start Date End Date Status clotrimazole 10 MG/ML Topical Cream CUTANEOUS clotrimazole 10 MG/ML Topical CreamOriginal Medicationclotrimazole 10 MG/ML Topical Cream *Reorder from [employer] for eRx and Interaction Alerts* 7 Active betamethasone 0.5 MG/ML / clotrimazole 10 MG/ML Topical Cream CUTANEOUS betamethasone 0.5 MG/ML / clotrimazole 10 MG/ML Topical CreamOriginal Medicationbetamethasone 0.5 MG/ML / clotrimazole 10 MG/ML Topical Cream *Reorder from [employer] for eRx and Interaction Alerts* 7 Active Augmented betamethasone 0.5 MG/ML Topical Cream CUTANEOUS Augmented betamethasone 0.5 MG/ML Topical CreamOriginal MedicationAugmented betamethasone 0.5 MG/ML Topical Cream *Reorder from [employer] for eRx and Interaction Alerts* 7 Active clobetasol propionate 0.0005 MG/MG Topical Ointment [Temovate] CUTANEOUS clobetasol propionate 0.0005 MG/MG Topical Ointment [Temovate]Original Medicationclobetasol propionate 0.0005 MG/MG Topical Ointment [Temovate] *Reorder from [employer] for eRx and Interaction Alerts* 7 Active betamethasone 0.5 MG/ML / clotrimazole 10 MG/ML Topical Cream [Lotrisone] CUTANEOUS betamethasone 0.5 MG/ML / clotrimazole 10 MG/ML Topical Cream [Lotrisone]Original Medicationbetamethasone 0.5 MG/ML / clotrimazole 10 MG/ML Topical Cream [Lotrisone] *Reorder from [employer] for eRx and Interacti 7 Active Immunizations Vaccine Route Administration Date Status Comme nts Influenza, live, intranasal Unknown 01/29/2023 Administ ered Influenza, seasonal, injecta ble, preservative free, 6-35 months Unknown 11/26/2017 Administered Influenza, seasonal, injecta ble, preservative free, 6-35 months Unknown 12/16/2023 Administered Tdap Unknown 11/22/2014 Administered Tdap Unknown 02/26/2016 Administered Tdap Unknown 02/26/2016 Administered Influenza, unspecified formulation Unknown 02/15/2015 A dministered Influenza, unspecified formulation Unknown 05/29/2015 A dministered Influenza, quadrivalent, spl it, preservative free, 3 years or older Unknown 11/14/2019 Administered Influenza, quadrivalent, spl it, preservative free, 3 years or older Unknown 12/31/2020 Administered Influenza, quadrivalent, spl it, preservative free, 3 years or older Unknown 12/31/2021 Administered Influenza, quadrivalent, spl it, preservative free, 3 years or older Unknown 12/23/2022 Administered Moonfrye Covid-19 Vac cine 1st dose Unknown 12/31/2020 Administered Moderna Covid-19 Vaccine 1st dose Unknown 04/13/2020 Ad ministered Moderna Covid-19 Vaccine 1st dose Unknown 05/11/2020 Ad ministered Vital Signs Height-cm 182.88 cm 06/27/2024 Weight-kg 149.69 kg 06/27/2024 Height 72.00 in 06/27/2024 Weight 330 lbs 06/27/2024 BMI 44.75 kg/m2 06/27/2024 Encounters Encounter Location Date Provider Diagnosis [facility] [address] [place], [place] [phone] 08/24/2023 PIETER SNOOK Tinea unguium B35.1 ; Pain in right toe(s) M79.674 ; Pain in left toe(s) M79.675 ; Atherosclerosis of [place] arteries of extremities with intermittent claudication, bilateral legs I70.213 and Type 2 diabetes mellitus with other circulatory complications E11.59 [facility] [address] [place] [id number] 09/14/2023 PIETER SNOOK Nondisplaced unspeci fied fracture of right lesser toe(s), subsequent encounter for fracture with routine healing S92.504D and Pain in left toe(s) M79.675 [facility] [address] [place] [id number] 11/09/2023 PIETER SNOOK Tinea unguium B35.1 ; Pain in right toe(s) M79.674 ; Pain in left toe(s) M79.675 ; Atherosclerosis of [place] arteries of extremities with intermittent claudication, bilateral legs I70.213 and Type 2 diabetes mellitus with other circulatory complications E11.59 [facility] [address] [place] [id number] 01/25/2024 PIETER SNOOK Tinea unguium B35.1 ; Pain in right toe(s) M79.674 ; Pain in left toe(s) M79.675 ; Atherosclerosis of [place] arteries of extremities with intermittent claudication, bilateral legs I70.213 and Type 2 diabetes mellitus with other circulatory complications E11.59 [facility] [address] [place] [phone] 06/27/2024 PIETER SNOOK Tinea unguium B35.1 ; Pain in right toe(s) M79.674 ; Pain in left toe(s) M79.675 ; Atherosclerosis of [place] arteries of extremities with intermittent claudication, bilateral legs I70.213 and Type 2 diabetes mellitus with other circulatory complications E11.59 [facility] [address] [place] [id number] 08/31/2023 PIETER SNOOK Nondisplaced unspeci fied fracture of unspecified lesser toe(s), initial encounter for closed fracture S92.506A and Pain in left foot M79.672 [facility] [address] [place], [place] [id number] 03/28/2024 PIETER WALSH Tinea unguium B35.1 ; Pain in right toe(s) M79.674 ; Pain in left toe(s) M79.675 ; Atherosclerosis of [place] arteries of extremities with intermittent claudication, bilateral [...] in right toe(s) (ICD-10 - M79.674) 06/27/2024 Tinea unguium (ICD-10 - B35.1) NAIL DEBRIDEMENT: Nails 1-5 Bilateral were debrided extensively with nail nippers and emery board, reducing length and girth to pink healthy tissue with any subungual debris and necrotic tissue removed 03/28/2024 Pain in left toe(s) (ICD-10 - M79.675) 06/27/2024 Pain in right toe(s) (ICD-10 - M79.674) 01/25/2024 Pain in right toe(s) (ICD-10 - M79.674) 11/09/2023 Pain in right toe(s) (ICD-10 - M79.674) 08/24/2023 Pain in left toe(s) (ICD-10 - M79.675) 11/09/2023 Pain in left toe(s) (ICD-10 - M79.675) 08/24/2023 Atherosclerosis of [place] arteries of extremities with intermittent claudication, bilateral legs (ICD-10 - I70.213) 01/25/2024 Pain in left toe(s) (ICD-10 - M79.675) 03/28/2024 Atherosclerosis of [place] arteries of extremities with intermittent claudication, bilateral legs (ICD-10 - I70.213) 06/27/2024 Pain in left toe(s) (ICD-10 - M79.675) 06/27/2024 Atherosclerosis of [place] arteries of extremities with intermittent claudication, bilateral legs (ICD-10 - I70.213) 01/25/2024 Atherosclerosis of [place] arteries of extremities with intermittent claudication, bilateral [...] the Amputation Prevention Guide. 11/09/2023 Atherosclerosis of [place] arteries of extremities with intermittent claudication, bilateral [...] as well as the Amputation Prevention Guide. 06/27/2024 Type 2 diabetes mellitus with other [...] Treatment Next Appt Details Provider Name:PIETER WALSH, 10:10:00 AM, [address], [address], [phone], Provider Name:PIETER WALSH, 08:10:00 AM, [address], [facility], [place], [place], [phone], Insurance Providers Payer Name Payer Address Payer Phone Subscriber Number Group Number Insured Name Patient Relationship to Insured Coverage Start Date Coverage End Date Medicare Part B [facility] [address] [place] [phone] [id number] KLAUDIA HALEY Self - patient is the insured
--- OUTSIDE RECORDS SUMMARY | 2024-07-02 17:27 | XMS_ITS | Encounter Summary ---
Author Organization [facility] Address [address] [place] [address] Care Team Providers Care Sandwich Wrapper Name Role Phone Sandi Alfaro Primary Care Provider [phone] Cheryl Huston RN Unavailable Unavailable Encounter Details Date Type Department Care Team (Late Contact Info) Description 08/27/2022 MyChart Message Enc [facility] Medical [address] [phone] [employer], [facility] Provider Air Quality Message Social [...] Sex Assigned at Male 03/31/2024 8:58 AM EVENT ATTENDANT Legal Sex Male 8:01 PM CDT Gender [...] Department Care Team (Late Contact Info) Description 07/20/2024 8:40 AM CDT Office Visit [facility] Medical [facility] Family & Internal Medicine [address] [address] Sandi Alfaro APNP [address] [place] [address] documented as of this encounter Visit Diagnoses Not on filedocumented in this encounter Additional Health Concerns Infection Onset Date Last Indicated Resolved Time COVID-19 Rule Out 05/12/2023 05/12/2023 05/13/2023 12:01 AM CDT Influenza - Seasonal 05/14/2023 05/14/2023 024 12:32 AM CDT Assessment Noted Time PHQ-9 Depression Total Score: 13 023 10:48 AM CDT documented as of this encounter Care Teams Sandwich Wrapper Relationship Specialty Start Date End Date Sandi Alfaro APNP Family & Internal Medicine [address] [address] PCP - General ADVANCED PRACTICE BUSINESS DIRECTOR 04/28/17 Cheryl Huston, para professional (Ambulatory) REGISTERED NURSE 03/23/19 documented as of this encounter
--- OUTSIDE RECORDS SUMMARY | 2024-07-02 17:27 | XMS_ITS | Encounter Summary ---
Author Organization [facility] Address [address] [place] [address] Care Team Providers Care Store Leader Name Role Phone Sandi Alfaro Primary Care Provider [phone] Cheryl Huston RN Unavailable Unavailable Encounter Details Date Type Department Care Team (Latest Contact Info) Description 06/28/2024 Scan [facility] Scanned, Doc Med Group Social History Tobacco Use Types Packs/Day Years Used Date Smoking Tobacco: Former Cigarettes 0.3 40 Q uit: 02/17/2024 Smokeless Tobacco: Never Comments:currently smoking 1 -2 cigarettes a day Alcohol Use Standard Drinks/Week Comments Yes 0 (1 standard drink = 0.6 oz pur e alcohol) very rarely 6 beers/year [facility] Utilities Answer Date Recorded In the past 12 months has e [employer], gas, oil, or water [employer] threatened to shut off services in your [...] often do you attend chur ch or zoroastrian services? Never 05/12/2023 Do you belong to any clubs o r organizations such as druze groups, unions, fraternal or athletic groups, or [...] Recorded Patient Health Questionnaire-2 Score 0 03/31/2024 [facility] - Occupational Stress Questionnaire Answer Date [...] place to sleep or slept in a [place] health care facility (including now)? No 05/12/2023 Sex and Gender Information Value Date Recorded Sex Assigned at Male 03/31/2024 8:58 AM STEEL LAYER Legal Sex Male 8:01 PM CDT Gender [...] Description 07/20/2024 8:40 AM CDT Office Visit [facility] Family & Internal Medicine [address] [phone] Sandi Alfaro APNP [address] [place] [address] documented as of this encounter Visit Diagnoses Not on filedocumented in this encounter Additional Health Concerns Assessment Noted Time PHQ-9 Depression Total Score: 0 05/21/19 24 11:21 AM CDT documented as of this encounter Care Teams Store Leader Relationship Specialty Start Date End Date Sandi Alfaro APNP Family & Internal Medicine [address] [address] PCP - General [facility]ACT[facility] CONGREGATIONAL CARE PASTOR 04/28/17 Cheryl Huston building maintenance mechanic (Ambulatory) REGISTERED NURSE 03/23/19 documented as of this encounter
--- OUTSIDE RECORDS SUMMARY | 2024-07-02 17:27 | XMS_ITS | Encounter Summary ---
Author Organization [facility] Address [address] [place] [address] Care Team Providers Care Traffic Controller Cable Name Role Phone Sandi Alfaro Primary Care Provider [phone] Cheryl Huston RN Unavailable Unavailable Reason for Visit * Reason Onset Date Comments Advice 06/30/2024 Encounter Details Date Type Department Care Team (Late st Contact Info) Description 06/30/2024 Telephone [facility] Family & Internal Medicine [facility] [address] [place] [address] Sandi Alfaro APNP [address] [place] [address] Advice Social History Tobacco Use Types Packs/Day Years Used Date Smoking Tobacco: Former Cigarettes 0.3 40 Q uit: 02/17/2024 Smokeless Tobacco: Never Comments:currently smoking 1 -2 cigarettes a day Alcohol Use Standard Drinks/Week Comments Yes 0 (1 standard drink = 0.6 oz pur e alcohol) very rarely 6 beers/year [facility] Utilities Answer Date Recorded In the past 12 months has [employer], gas, oil, or water [employer] threatened to shut off services in your [...] often do you attend chur ch or jew services? Never 05/12/2023 Do you belong to any clubs o r organizations such as jewish groups, unions, fraternal or athletic groups, or [...] Recorded Patient Health Questionnaire-2 Score 0 03/31/2024 [facility] - Occupational Stress Questionnaire Answer Date [...] Sex Assigned at Male 03/31/2024 8:58 AM MANAGER [employer] Legal Sex Male 8:01 PM CDT Gender [...] Status Yes 05/12/2023 10:03 PM Tyrel Gerard, CAR Active * Do you have difficulty dressing or bathing? Answer Date of Assessment Author Status No 05/12/2023 10:03 PM Tyrel Gerard, CAR Active * Because of a physical, mental, or emotional condition, do you have difficulty doing errands alone such as visiting a doctor's office or shopping? Answer Date of Assessment Author Status Yes 05/12/2023 10:03 PM CDT Tyrel Dawkins, RN Active documented as of this encounter Mental Status * Because of a physical, mental, or emotional condition, do you have serious difficulty concentrating, remembering, or making decisions? Answer Entry Date Author Status No 05/12/2023 10:03 PM CDT Tyrel Dawkins, RN Active documented in this encounter Progress Notes * Amy Carmona RN - 07/01/2024 12:10 PM CDT Patient notified and verbalized understanding. Opportunity given for all questions to be answered, no further needs voiced at this time. LL-07/01/24 * CRIS Rizo - 07/01/2024 9:03 AM CDT Ice, elevate, tylenol Narcotics not appropriate at this time * Ayanna Jc - 06/30/2024 3:36 PM CDT Patient states 06/28/24 had rolling pin fall on Rt foot, states went to [facility]. States had xrays was informed nothing was broke, but states has been in pain where he is losing sleep. Nothing helps to alleviate pain. Please advise. documented in this encounter Plan of Treatment Upcoming Encounters Date Type Department Care Team (Late st Contact Info) Description 07/20/2024 8:40 AM CDT Office Visit [facility] Medical Group Family & Internal Medicine - [place] [address] [place] [address] Sandi Alfaro APNP [address] [place], [place] [phone] documented as of this encounter Visit Diagnoses Not on filedocumented in this encounter Additional Health Concerns Assessment Noted Time PHQ-9 Depression Total Score: 0 05/21/19 24 11:21 AM CDT documented as of this encounter Care Teams Traffic Controller Cable Relationship Specialty Start Date End Date Sandi Alfaro APNP Family & Internal Medicine [address] [address] PCP - General [facility] PRACTICE ENGLISH FACULTY MEMBER 04/28/17 Cheryl Huston, tight rope walker (Ambulatory) REGISTERED NURSE 03/23/19 documented as of this encounter
--- OUTSIDE RECORDS SUMMARY | 2024-07-02 17:28 | XMS_ITS ---
Author Organization [facility] Address [address] [place], [place] [address] Care Team Providers Care Stroke Belt Sander Operator Name Role Phone PIETER WALSH Unavailable [phone] Sandi Alfaro Unavailable Unavailable REASON FOR VISIT [...] 10 MG/ML Topical Cream [Lotrisone] *Reorder from [facility] for eRx and Interacti 7 Active betamethasone 0.5 MG/ML / clotrimazole 10 MG/ML Topical Cream CUTANEOUS betamethasone 0.5 MG/ML / clotrimazole 10 MG/ML Topical CreamOriginal Medicationbetamethasone 0.5 MG/ML / clotrimazole 10 MG/ML Topical Cream *Reorder from [facility] for eRx and Interaction Alerts* 7 Active clobetasol propionate 0.0005 MG/MG Topical Ointment [Temovate] CUTANEOUS clobetasol propionate 0.0005 MG/MG Topical Ointment [Temovate]Original Medicationclobetasol propionate 0.0005 MG/MG Topical Ointment [Temovate] *Reorder from [facility] for eRx and Interaction Alerts* 7 Active clotrimazole 10 MG/ML Topical Cream CUTANEOUS clotrimazole 10 MG/ML Topical CreamOriginal Medicationclotrimazole 10 MG/ML Topical Cream *Reorder from [facility] for eRx and Interaction Alerts* 7 Active Augmented betamethasone 0.5 MG/ML Topical Cream CUTANEOUS Augmented betamethasone 0.5 MG/ML Topical CreamOriginal MedicationAugmented betamethasone 0.5 MG/ML Topical Cream *Reorder from [facility] for eRx and Interaction Alerts* 7 Active Encounters Encounter Location Date Provider Diagnosis [facility] [address] [place], [place] [phone] 01/25/2024 PIETER LATONYAK Tinea unguium B35.1 ; Pain in right toe(s) M79.674 ; Pain in left toe(s) M79.675 ; Atherosclerosis of [place] arteries of extremities with intermittent claudication, bilateral [...] toe(s) (ICD-10 - M79.675) 01/25/2024 Atherosclerosis of [place] arteries of extremities with intermittent claudication, bilateral [...] Name:PIETER WALSH, 10:10:00 AM, [address], [facility], [place], [place], [id number], Provider Name:PIETER WALSH, 08:10:00 AM, [address], [facility], [place], [place], [phone], Progress Notes * SUDHA KLAUDIA BDOB:[birth year] (64 yo M)Acc No.[id number]:01/25/2024 Patient: KLAUDIA DUONG Provider: Kristal Walsh DPM :1960 A ge:63 Y S ex:Male Date:01/25/2024 Address:[address] [place] [address] [facility] Subjective: * Chief Complaints: * 1 . [...] seen by Dr. Alfaro was 01/2024., Initials [facility]. * Medical History: * Medications: T aking Augmented betamethasone 0.5 MG/ML Topical Cream CUTANEOUS , Notes to Pharmacist: Augmented betamethasone 0.5 MG/ML Topical CreamOriginal MedicationAugmented betamethasone 0.5 MG/ML Topical Cream *Reorder from [facility] for eRx and Interaction Alerts*, Taking betamethasone 0.5 MG/ML / clotrimazole 10 MG/ML Topical Cream CUTANEOUS , Notes to Pharmacist: betamethasone 0.5 MG/ML / clotrimazole 10 MG/ML Topical CreamOriginal Medicationbetamethasone 0.5 MG/ML / clotrimazole 10 MG/ML Topical Cream *Reorder from [facility] for eRx and Interaction Alerts*, Taking betamethasone 0.5 MG/ML / clotrimazole 10 MG/ML Topical Cream [Lotrisone] CUTANEOUS , Notes to Pharmacist: betamethasone 0.5 MG/ML / clotrimazole 10 MG/ML Topical Cream [Lotrisone]Original Medicationbetamethasone 0.5 MG/ML / clotrimazole 10 MG/ML Topical Cream [Lotrisone] *Reorder from [facility] for eRx and Interacti, Taking clobetasol propionate 0.0005 MG/MG Topical Ointment [Temovate] CUTANEOUS , Notes to Pharmacist: clobetasol propionate 0.0005 MG/MG Topical Ointment [Temovate]Original Medicationclobetasol propionate 0.0005 MG/MG Topical Ointment [Temovate] *Reorder from [facility] for eRx and Interaction Alerts*, Taking clotrimazole 10 MG/ML Topical Cream CUTANEOUS , Notes to Pharmacist: clotrimazole 10 MG/ML Topical CreamOriginal Medicationclotrimazole 10 MG/ML Topical Cream *Reorder from [facility] for eRx and Interaction Alerts*, Medication [...] - M79.675 4 . A therosclerosis of [place] arteries of extremities with intermittent claudication, bilateral [...] Information: * Visit Code: * Procedure Codes: 17021 DEBRIDE NAIL, 6 OR MORE. Modifiers: Q8 * Electronic signature of PIETER WALSH DPM on 07/02/2024 at 05:27 PM CDT Sign off status: Pending * Provider: Kristal Walsh DPM Date: 03/26/2023 Generated for Michelle chi/Danielle/Nimesh on: 0 07/02/2024 05:27 PM CDT History and Physical Notes * [...] seen by Dr. Alfaro was 01/2024., Initials [facility] Examination Category Sub-Category Detail Notes Category Not [...]
--- OUTSIDE RECORDS SUMMARY | 2024-07-02 17:28 | XMS_ITS | Clinical Summary ---
Author Organization [facility] Address [facility] [place] [address] Care Team Providers Care Wood Heel Attacher Name Role Phone Sandi Alfaro Primary Care Provider [phone] Cheryl Huston RN Unavailable Unavailable Allergies No [...] complication, without long-term current use of insulin ([facility]) USE 1 STRIP BY OTHER ROUTE 2 (TWO) TIMES A DAY. 100 strip 03/24/19 24 Active tamsulosin (FLOMAX) 0.4 MG Cap Take 1 capsule (0.4 mg total) by mouth nightly at bedtime. 04/21/19 24 Active vitamin B-12 (CYANOCOBALAMIN) 1000 MCG [...] ns:Dyslipidemia associated with type 2 diabetes mellitus ([facility]) Inject 3 mg into the skin once a week. 6 mL 11 08/26/19 24 Active metFORMIN (GLUCOPHAGE) 1000 MG tabletIndications: Diabetic foot ([facility]) TAKE 1 TABLET BY MOUTH TWICE A DAY 180 tablet 1 01/18/20 24 Active meclizine (ANTIVERT) 25 MG tablet [...] congestive heart failure, unspecified heart failure type ([facility]),Primary hypertension TAKE 1 TABLET BY MOUTH EVERY DAY 90 tablet 1 03/23/19 25 Active albuterol sulfate HFA 108 (90 Base) MCG/ACT inhaler INHALE 2 PUFFS EVERY 4 - 6 HOURS NEEDED FOR SHORTNESS OF BREATH OR WHEEZING FOR 30 DAYS 12/26/20 24 Active buPROPion SR (WELLBUTRIN SR) 150 [...] complication, without long-term current use of insulin ([facility]) TAKE 1 TABLET BY MOUTH EVERY DAY [...] available 1 each 06/01/19 25 026 Active carvedilol (COREG) 12.5 MG tablet Take 1 tablet (12.5 mg total) by mouth every 12 (twelve) hours. 05/05/19 25 Active clopidogrel (PLAVIX) 75 MG tablet Take 1 tablet (75 mg total) by mouth every morning. 06/18/19 25 Active furosemide (LASIX) 40 MG tablet Take 1 tablet (40 mg total) by mouth daily. 05/05/19 25 Active budesonide-glycopy rrolate-formoterol (BREZTRI AEROSPHERE) 160-9-4.8 MCG/ACT inhalerIndications :Pulmonary emphysema, unspecified emphysema type ([facility]) Inhale 2 puffs into the lungs 2 (two) times daily. 10.7 g 5 06/22/19 25 Active Fluticasone-Umecli din-Vilant (TRELEGY ELLIPTA) 200-62.5-25 MCG/ACT AEROSOL POWDER, BREATH ACTIVATEDIndicatio ns:Mild emphysema (CMS/HCC HHS/HCC) Inhale 1 puff into the lungs daily as needed (shortness of breath). 05/13/19 24 025 Discontin ued(Dupli erica Med) fluticasone-salmet yane (ADVAIR HFA) 115-21 MCG/ACT inhalerIndications :Mild emphysema (CMS/HCC HHS/HCC) Inhale 2 puffs into the lungs 2 (two) times daily. 12 g 3 11/27/19 24 025 Discontin ued(Formu alice change) ondansetron (ZOFRAN-ODT) 4 MG disintegrating tabletIndications: Nausea Take 1 tablet (4 mg total) by mouth every 8 (eight) hours as needed. FOR NAUSEA 10 tablet 01/27/20 24 025 Discontin ued(Dupli erica Med) Fluticasone-Umecli din-Vilant (TRELEGY ELLIPTA) 100-62.5-25 MCG/ACT AEROSOL POWDER, BREATH ACTIVATEDIndicatio ns:Unilateral emphysema (CMS/HCC HHS/HCC) Inhale 1 Inhalation into the lungs daily. 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 0 05/17/2021 Peripheral neuropathy 05/17/2021 Rectal polyp 05/17/2021 Swelling of left lower extremity 05/17/2021 Tear of medial meniscus of knee 05/17/2021 Tobacco abuse 05/17/2021 Pain due to ureteral stent 05/17/2021 Cigarette nicotine dependence without complicati on 03/14/2019 Seasonal allergic rhinitis due to pollen 019 Chronic heart failure with p reserved ejection fraction ([facility]) 11/12/2018 Arthralgia of left hand 11/02/2018 Enchondroma of bone of hand, left 11/02/2018 Carpal tunnel syndrome on left 08/26/2018 Cryptogenic stroke ([facility]) 07/06/2018 Skin lesion of right arm 06/28/2018 Weakness 05/26/2018 Status post placement of implantable loop record er 10/13/2017 Overview (01/13/2018): Overview: [employer] Reveal Loop Recorder. Dx; Cryptogenic Stroke. DOI 10/12/[address] Willoughby[address] [facility] remote monitoring. TIA (transient ischemic attack) 10/06/2017 Mild emphysema ([facility]) 08/28/2017 Hepatic steatosis 08/28/2017 Memory loss 05/18/2017 Chest pain 04/30/2017 S/P coronary artery stent placement 12/17/2016 Hemorrhoids 10/03/2016 Hearing loss 08/01/2016 Decreased hearing 07/17/2016 Chronic nausea 03/27/2016 Diabetic foot ([facility]) 03/10/2016 Abdominal wall bulge 03/10/2016 CHF (congestive heart failure) ([facility]) 01/14/2016 Peripheral edema 12/19/2015 Tinnitus 11/08/2015 History of kidney stones 10/03/2015 Insomnia 05/07/2015 Chronic cough 03/20/2015 Hypertensive heart disease w ith congestive heart failure ([facility]) 02/20/2015 Overview (01/13/2018): Overview: Hypertensive heart disease with diastolic heart failure Coronary artery disease of n ative artery of [place] heart with stable angina pectoris 02/20/2015 Overview (01/13/2018): Overview: Coronary artery disease involving [place] coronary artery of [place] heart with other form of angina pectoris CVA, old, hemiparesis ([facility]) 02/21/20 15 Overview (01/13/2018): Overview: CVA, old, hemiparesis Dyslipidemia associated with type 2 diabetes mellitus ([facility]) 02/20/2015 Overview (01/13/2018): Overview: DM (diabetes mellitus) Overview: DM type 2 with diabetic dyslipidemia Mixed diabetic hyperlipidemi a associated with type 2 diabetes mellitus ([facility]) 02/20/2015 Overview (05/17/2021): DM type [...] Overview: HTN (hypertension), benign Cerebrovascular accident (CVA) ([facility]) 08/23/2013 Hyperlipidemia 08/23/2013 Resolved Problems Problem Noted Date Diagnosed Date Resolved Date Left nephrolithiasis 10/07/2017 018 Encounter for screening for lung cancer 04/09/2017 06/28/2018 BMI 45.0-49.9, adult 10/03/2016 023 Morbid obesity 08/13/2016 05/15/2022 Encounter for preventive health examination 08/23/2013 06/28/2018 Encounters Date Type Department Care Team Description 06/30/2024 Telephone [facility] Family & Internal Medicine [address] [phone] Sandi Alfaro APNP Advice 06/28/2024 Scan [facility] INFO SRVCS Scanned, [facility] 06/21/2024 8:40 AM CDT Office Visit [facility] Internal [address] [phone] Sandi Alfaro, CRIS TCM 06/21/[address] [phone] Sandi Alfaro, APNP Medication Problem 06/21/2024 Travel 06/15/2024 Scan [facility] INFO SRVCS Scanned, [facility] MRI (SCAN); Echo (SCAN) 06/14/2024 Scan [facility] SRVCS Scanned, [facility] CT (SCAN); Image (SCAN) 06/13/2024 Scan [facility] SRVCS Scanned, [facility] Image (SCAN); Lab (SCAN) 05/31/[address] [phone] Sandi Alfaro, CRIS Medication Request 05/05/2024 Scan [facility] SRVCS Scanned, [facility] 05/03/2024 Scan [facility] SRVCS Scanned, [facility] Toddler Guide Report (SCAN)* 05/02/2024 Scan [facility] INFO [...] Group Lab (SCAN); CT (SCAN) 04/11/[address] [phone] Sandi Alfaro, APNP Results from Last 3 Months Immunizations Immunization Administration [...] Disease Father Diabetes Mother Heart Disease Sister 1 None Sister 2 Relation Status Comments Father Mother Sister 1 Sister 2 Alive Social History Tobacco Use Types Packs/Day Years Used Date Smoking Tobacco: Former Cigarettes 0.3 40 Q uit: 02/17/2024 Smokeless Tobacco: Never Tobacco Cessation:Counseling Given: Not Answered Comments:currently smoking 1-2 cigarettes a day Alcohol Use Standard Drinks/Week Comments Yes 0 (1 standard drink = 0.6 oz pur e alcohol) very rarely 6 beers/year [facility] Utilities Answer Date Recorded In the past 12 months has e [employer], [employer], or water [employer] threatened to shut off services in your [...] any clubs o r organizations such as nondenominational groups, unions, fraternal or athletic groups, or [...] Recorded Patient Health Questionnaire-2 Score 0 03/31/2024 [facility] - [...] Sex Assigned at Male 03/31/2024 8:58 AM VP PUBLIC RELATIONS Legal Sex Male 8:01 PM CDT Gender Identity Not on file Sexual Orientation Not on file Last Filed Vital Signs Vital Sign Reading Time Taken Comments Blood Pressure 112/68 06/21/2024 8:50 AM CDT Pulse 81 06/21/2024 8:50 AM CDT Temperature 36.3 C (97.3 F) 06/21/2024 8:50 AM CDT Respiratory Rate 16 06/21/2024 8:50 AM CDT Oxygen Saturation 97% 06/21/2024 8:50 AM CDT Inhaled Oxygen Concentration - - Weight 139.4 kg (307 lb 4.8 oz) 06/21/2024 8:50 AM CDT Height 182.9 cm (6') 06/21/2024 8:50 AM CDT Body Mass Index 41.68 06/21/2024 8:50 AM CDT Plan of Treatment Upcoming Encounters Date Type Department Care Team (Late st Contact Info) Description 07/20/2024 8:40 AM CDT Office Visit [facility] Family & Internal Medicine [address] [phone] Sandi Alfaro, CRIS [address] [place], [place] [id number] Health Maintenance Due Date Last Done Comments COVID-19 Vaccine ( season) 2023 12/31/2021, 12/31/2020, 05/11/2020, Additional history exists ASCVD LDL 05/12/2024 05/13/2023, 06/01, 08/24/2017, Additional history exists Lipid Panel 05/12/2024 [...] Vaccine: 50+ Years Completed 06/28/2021 PHQ-2 (Physician [place]) Completed 03/31/2024 Meningococcal B Vaccine Aged Out No l onger eligible based on patient's age to complete this topic Meningococcal Vaccine Aged Out No shyam jose eligible based on patient's age to complete this topic RSV Immunizations Under 20 Months Aged Out No longer eligible based on patient's age to complete this topic Procedures Procedure Name Priority Date/Time Associated Diagnosis Comments ECHO GENERIC (SCAN ORDER) 06/15/2024 MRI GENERIC 06/15/2024 CT GENERIC 06/14/2024 IMAGE GENERIC 06/14/2024 OUTSIDE LAB (SCAN ORDER) 06/13/2024 OUTSIDE LAB (SCAN ORDER) 06/13/2024 OUTSIDE PT/INR (SCAN ORDER) 06/13/2024 IMAGE GENERIC 06/13/2024 PHARMACY TECH 05/03/2024 OUTSIDE LAB (SCAN ORDER) Routine 05/01/2024 OUTSIDE LAB (SCAN ORDER) 05/01/2024 IMAGE GENERIC 05/01/2024 DIABETIC RETINOPATHY EXAM (NEGATIVE)(SCAN ORDER) Routine 04/27/2024 CT GENERIC 04/14/2024 OUTSIDE LAB (SCAN ORDER) 04/14/2024 OUTSIDE LAB (SCAN ORDER) 04/14/2024 HEMOGLOBIN, GLYCOSYLATED Routine 02/05/2024 Type 2 diabetes [...] Recently Relevant to Health Maintenance Results * MRI GENERIC (06/15/2024) Anatomical Region Laterality Modality Other 06/15/2024 us [facility] Scanned SCANNING Final Resu lt * ECHO GENERIC (SCAN ORDER) (06/15/2024) Anatomical Region Laterality Modality Other 06/15/2024 us [facility] Scanned SCANNING Final Resu lt * CT GENERIC (06/14/2024) Only the most recent of2 resultswithin the time period is included. Anatomical Region Laterality Modality Other 06/14/[address] [facility] Scanned SCANNING Final Resu lt * IMAGE GENERIC (06/14/2024) Only the most recent of3 resultswithin the time period is included. Anatomical Region Laterality Modality Other 06/14/[address] [facility] Scanned SCANNING Final Resu lt * OUTSIDE PT/INR (SCAN ORDER) (06/13/2024) 06/13/[address] [facility] Scanned SCANNING Final Resu lt * OUTSIDE LAB (SCAN ORDER) (06/13/2024) Only the most recent of6 resultswithin the time period is included. 06/13/[address] [facility] Scanned SCANNING Final Resu lt * PHARMACY TECH (05/03/2024) Anatomical Region Laterality Modality Other 05/03/2024 Result [facility] Scanned SCANNING Final Resu lt * DIABETIC RETINOPATHY EXAM (NEGATIVE) (04/27/2024) Result [facility] Scanned SCANNING Final Resu lt [facility] ONBASE * HEMOGLOBIN, GLYCOSYLATED (02/05/2024) HGB A1C 6.5 % [facility] 02/05/2024 Sandi LYNCH LABORATORY Final Resul t [facility] [address] [place] [address], * (ABNORMAL) LIPID PANEL (05/13/2023 6:00 AM CDT) CHOLESTEROL 87 <200 MG/DL 05/13/2023 7:18 AM CDT [facility] TRIGLYCERIDES 213(H) <150 MG/DL 05/13/2023 7:18 AM CDT [facility] HDL 24(L) >40.0 MG/DL 05/13/2023 7:18 AM CDT [facility] LDL (CALCULATED) 20 <100 MG/DL 05/13/2023 7:18 AM CDT [facility] NON HDL CHOLESTEROL 63 <130 MG/DL 05/13/2023 7:18 AM CDT [facility] CHOL/HDL RATIO 3.6 0.0 - 4.5 05/13/2023 7:18 AM T [facility] VLDL CALCULATION 43 5 - 55 MG/DL 05/13/2023 7:18 AM CDT [facility] LIPID INTERPRETATION 05/13/2023 7:18 AM T [facility] Comment: [facility] CONCENSUS REPORT RECOMMENDATIONS: ADULT CHILD LOW RISK: CHOLESTEROL <200 <170 TRIGLYCERIDE <150 --- HDL >=60 --- LDL <100 <110 BORDERLINE: CHOLESTEROL 200-239 170-199 TRIGLYCERIDE 150-199 --- HDL 40-59 --- LDL 100-159 110-129 HIGH RISK: CHOLESTEROL >=240 >=200 TRIGLYCERIDE >=200 --- HDL <40 --- LDL >=160 >=130 05/13/2023 6:00 AM CDT Ayanna Bellamy MD LABORATORY Final Re sult [facility] [address] [place] [address], * HEPATITIS C ANTIBODY W/RFX TO HCV [...] a test for HCV RNA (test code 59917) is suggested. For additional information please refer to http://education.Kochzauber/faq/OVR58o8 (This link is being provided for informational/ educational purposes only.) 06/28/2021 11:2 2 AM CDT 06/29/2021 10:18 AM CDT Sandi LYNCH LABORATORY Final Resul t [facility] [address] [place] [address] * CT CHEST WO CONT LOW DOSE [...] As above. Thank you for choosing the [facility]'s Lung Screening Program. Referred By: [...] in the left lung base posteriorly. Implanted paint roller covermaker device within the left chest subcutaneous tissues. [...] As above. Thank you for choosing the [facility]'s Lung ScreeningProgram. Referred By: NICK [...] 11:13 PM 05/01/2017 6:00 PM Care Teams Wood Heel Attacher Relationship Specialty Start Date End Date Sandi Alfaro APNP Family & Internal Medicine [address] [address] PCP - General [facility] [employer] [employer] 04/28/17 Cheryl Huston, portfolio specialist (Ambulatory) REGISTERED NURSE 03/23/19
[2024-07-02] MEDS: NITROGLYCERIN OINTMENT 1 INCH DOSE TRANSDERM ×2 (17:30→23:59)
--- NOTE | 2024-07-02 18:22 | ADMGEN ---
This patient, Vini Zambrano, was admitted to IMU Room 204-01. Patient/family oriented to hospital policies and general routines including ID bracelet, bed and alarms, visiting hours, pain management, procedures, bathroom and other care routines, personal items, smoking policy, room service/diet, and visiting hours. Information on how to activate the Rapid Response Team has been discussed. Patient/Family are encouraged to report perceived risks to care and to ask questions if they do not understand what they are told or what they should do.
--- NOTE | 2024-07-02 19:03 | P.HP_ITS ---
H&P: HPI History of Present Illness Date/Time: 07/02/24 19:03 Chief Complaint: Chest Pain Narrative: This 64 year old male pt with PMH of it is coronary artery disease status post PCI now x3, TIA, hypertension, peripheral neuropathy, type 2 diabetes mellitus, DVT, peptic ulcer disease, hyperlipidemia, sleep apnea, GERD, COPD, heart failure, depression who was a previous smoker that stopped in 2023 after a 30 pack-year history who comes to the emergency room with complaints of having chest pain. Patient had PCI to the mid LAD for 60% stenosis on June 17, 2024 here at our facility. 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 Modi initially would not fill it, and just today he was able to have a refill of those medications. Patient states that today he was in the shower and when dry it off he noticed pain to both sides of his jaws that radiated down the left arm and over to the left side of his chest. He had associated symptoms of a headache and shortness of breath. After the pain did not subside on its own he decided to call EMS and was brought to the emergency room. Prior to coming to the emergency room he did take an oral dose of nitro with some relief but the pain returned. He also notes that he has had 2 days of diarrhea and notes that approximately 1 week ago he dropped a rolling pin on the top of his right foot and he has bruising and pain there that had no broken bones upon visit to urgent care. Patient denies any other acute complaints at this time and after nitro paste placed on him he is having improvement in his overall pain in his chest. Patient was evaluated in the ER where workup showed no changes on EKG that showed normal sinus rhythm 82 beats per minute with a right bundle-branch block. It was similar to that of his most recent on June 17. Chest x-ray was negative, initial troponin was normal at less than 0.012, coags were normal, CBC was unremarkable and his metabolic panel was remarkable only for hyperglycemia with a glucose of 300. Patient states this is out of character for him to have a glucose that high as he states it runs of approximately in the 150s to 160s. As patient had some improvement in his overall pain ER physician discussed with chemicals distiller Dr. Sanchez who advised to admit and do serial troponins and continue with nitropaste and they will consult. Review of Systems Review of Systems: All systems reviewed & are unremarkable except as noted in HPI and below PMFSH Past Medical History Medical History Hypertension Coronary artery disease Stent to the distal circumflex and Left anterior descending in 2014. Left anterior descending stent in 04/2015. COVID Transient ischemic attack Diabetic peripheral neuropathy Peripheral vascular disease Deep venous thrombosis Gastric ulcer Obstructive sleep apnea on CPAP Hyperlipidemia Type 2 diabetes mellitus Gastroesophageal reflux disease Chronic obstructive pulmonary disease Cerebrovascular accident Mild left-sided weakness. Congestive heart failure BMI greater than 40 Chronic anticoagulation Hydronephrosis Psoriasis Depression Fracture of fifth toe, right, closed Kidney stones Pneumonia Myocardial infarction Seasonal allergies Surgical History Surgical History History of coronary artery stent placement History of tonsillectomy History of cholecystectomy History of lithotripsy History of rectal polypectomy History of cardiac catheterization 2 stents Family History Family History Mother Diabetes mellitus Arthritis Kidney stones Coronary artery disease Father Acute myocardial infarction Heart disease Kidney stones Hypertension Coronary artery disease Sibling Coronary artery disease Heart disease Hx of CABG Social History Social History Social History: Surrogate decision maker: Rena Dodd, friend. Code status: Full code. Smoking packs per day: 1 Smoking cigarettes per day: 20.0 Years smoked: 30 Smoking pack-years: 30.00 Smoking status: Former smoker Tobacco type: cigarettes Second hand tobacco smoke exposure: No Smoking end date: 02/17/24 Alcohol intake: former Drinks per week: 0 Substance use: former Substance use type: does not use Last use: 10/01/2023 Do You Feel Safe in your Home?: Yes Lack of Transportation: No Lack of Food: Never True Current Housing: I Have Housing Concerned About Future Housing: No Difficulty Paying Gas/Electric Bills: No Difficulty Paying for Meds: No Currently Unemployed: No Education: Associate Degree Difficulty w/ Childcare or Family Care: No Living arrangements: with roommate(s) Additional living arrangements comments: The patient lives in [place] with a roommate. He has no children. Occupation/Education: other Additional occupation/education comments: Disabled. Spiritual care concerns: No Meds Home Medications and Allergies Home Medications ?Medication ?Instructions ?Recorded ?Confirmed ?Type amlodipine 10 mg tablet 10 mg PO DAILY 01/24/19 07/02/24 History bupropion HCl 150 mg tablet,12 hr 150 mg PO BID 01/24/19 07/02/24 History sustained-release (Wellbutrin SR) metformin 1,000 mg tablet 1,000 mg PO BID 01/24/19 07/02/24 History isosorbide mononitrate 60 mg 120 mg PO DAILY 01/09/20 07/02/24 History tablet,extended release 24 hr alprazolam 0.25 mg tablet 0.25 mg PO HS 08/21/21 07/02/24 History aspirin 81 mg chewable tablet 81 mg PO DAILY 09/29/21 07/02/24 History (Children's Aspirin) losartan 100 mg tablet 100 mg PO DAILY 05/02/24 07/02/24 History carvedilol 12.5 mg tablet (Coreg) 12.5 mg PO Q12HR #60 tabs 05/04/24 07/02/24 Rx empagliflozin 10 mg tablet 10 mg PO DAILY #30 tabs 05/04/24 07/02/24 Rx (Jardiance) nitroglycerin 0.4 mg sublingual 0.4 mg sublingual Q5MIN PRN Chest 05/04/24 07/02/24 Rx tablet (Nitrostat) Pain #26 tabs omeprazole 40 mg capsule,delayed 40 mg PO DAILY #30 caps 05/04/24 07/02/24 Rx release tamsulosin 0.4 mg capsule 0.4 mg PO HS #30 caps 05/04/24 07/02/24 Rx atorvastatin 80 mg tablet 80 mg PO DAILY 06/13/24 07/02/24 History dulaglutide 3 mg/0.5 mL 3 mg subcut WEEKLY 06/13/24 07/02/24 History subcutaneous pen injector (Trulicity) furosemide 40 mg tablet 40 mg PO DAILY 06/13/24 07/02/24 History clopidogrel 75 mg tablet 75 mg PO QAM #30 tabs 06/17/24 07/02/24 Rx rivaroxaban 2.5 mg tablet (Xarelto) 2.5 mg PO BID #60 tabs 06/17/24 07/02/24 Rx budesonide 160 mcg-glycopyr 9 2 inh inhalation BID 06/28/24 07/02/24 History mcg-formot 4.8 mcg/actuation HFA inhaler (Breztri [employer]Apolisphere) Allergies Allergy/AdvReac Type Severity Reaction Status Date / Time No Known Allergies Allergy Unknown Verified 07/02/24 15:25 Vital Signs Vital Signs - 24 hr 07/02/24 15:18 07/02/24 15:32 07/02/24 15:47 Temperature Pulse Rate 84 87 93 Respiratory Rate 27 H 18 20 Blood Pressure 152/87 H 122/74 Pulse Oximetry 99 100 97 Oxygen Delivery Room Air 07/02/24 17:02 07/02/24 17:32 07/02/24 17:47 Temperature 97.6 F 97.7 F Pulse Rate 80 80 84 Respiratory Rate 16 17 18 Blood Pressure 128/108 H 136/87 147/88 H Pulse Oximetry 96 95 96 Oxygen Delivery 07/02/24 18:25 Temperature 98.0 F Pulse Rate 76 Respiratory Rate Blood Pressure 147/83 H Pulse Oximetry 98 Oxygen Delivery Exam Const: General: comfortable and no acute distress Other: Morbidly obese male patient sitting up in stretcher at this time in no acute distress. HENMT: Mouth: Yes moist mucous membranes Eyes: General: appearance normal, both eyes and all related structures Neck: Neck: supple and no JVD Other: Full active range of motion in all directions without rigidity. Chest: Other: Non-tender to palpation Resp: Effort & Inspection: normal respiratory effort Auscultation: clear to auscultation bilaterally Cardio: Rate: regular rate Rhythm: regular rhythm Heart sounds: no gallops, Murmur heart sound present and no rubs Other: Grade 2 systolic murmur GI: GI Palp: Yes Soft to palpation and No Tenderness to palpation present (GI) Auscultation: normal bowel sounds Other: Rotund abdomen Skin: General skin exam: normal color, no rashes or lesions noted and no erythema Wounds: no wounds Neuro: General: gait normal Speech: normal speech Motor exam (neuro): 5/5 motor strength present throughout and Normal motor muscle tone present throughout Sensory Exam: normal sensation Extrem: General: edema (trace bilateral) Psych: Mental Status: mental status grossly normal Affect: normal affect H&P: Results Labs Labs: Short CBC 07/02/24 Range/Units 15:27 WBC 6.3 (4.5-10.0) K/mm3 Hgb 14.1 (14.0-18.0) g/dL Hct 41.3 L (42.0-52.0) % Plt Count 129 L (150-375) k/mm3 BMP 07/02/24 15:27 Sodium 136 L Potassium 4.2 Chloride 102 Carbon Dioxide 20 L BUN 17 Creatinine 1.04 Glucose 300 H Calcium 9.1 Cardiac Enzymes 07/02/24 Range/Units 15:27 Troponin I < 0.012 (0.000-0.034) ng/mL Liver Function 07/02/24 Range/Units 15:27 Total Bilirubin 0.6 (0.2-1.3) mg/dL AST 27 (17-59) U/L ALT 37 (6-50) U/L Alkaline Phosphatase 69 (38-126) U/L Albumin 4.4 (3.5-5.1) g/dL Assessment and Plan Assessment and plan (1) Chest pain: Qualifiers: Chest pain type: unspecified Qualified Code(s): R07.9 - Chest pain, unspecified Code(s): R07.9 - Chest pain, unspecified Status: Acute Assessment and Plan: * Continue telemetry * Cardiology has been consulted. * Continue Nitropaste * Trend trops * Trend EKG's * Initial trop is normal and EKG without any acute changes from June 17, 2024 * Continue all cardiac meds. * Heart healthy diet * Monitor and trend VS and labs. * Pain meds PRN (2) Coronary artery disease status post coronary stent insertion: Code(s): I25.10 - Atherosclerotic heart disease of [place] coronary artery without angina pectoris; Z95.5 - Presence of coronary angioplasty implant and graft Status: Acute Assessment and Plan: * 06/17/24 PCI to mid LAD for 60% stenosis. * Pt has two additional stents. * See #1 * Continue Xarelto and Plavix. Continue to hold ASA in current setting. Pt did complete one week of triple therapy post PCI. (3) Hypertension: Code(s): I10 - Essential (primary) hypertension Status: Chronic Assessment and Plan: * Continue home medications * Monitor and trend VS and labs (4) Chronic heart failure with preserved ejection fraction (HFpEF): Code(s): I50.32 - Chronic diastolic (congestive) heart failure Status: Chronic Assessment and Plan: * Last ECHO 06/15/24 - shows Normal LVSF at 60-65% EF. * preserved ejection fraction noted. * Continue diuretics. * No new EKG findings of decompensating heart failure and pt appears euvolemic. * Routine BNP ordered as pt does not appear decompensated. * Telemetry * Daily weight (5) HLD (hyperlipidemia): Qualifiers: Hyperlipidemia type: unspecified Qualified Code(s): E78.5 - Hyperlipidemia, unspecified Code(s): E78.5 - Hyperlipidemia, unspecified Status: Chronic Assessment and Plan: * Heart healthy diet * Recommend lifestyle changes (6) Chronic anticoagulation: Code(s): Z79.01 - prison (current) use of anticoagulants Status: Chronic Assessment and Plan: * Xarelto for hx of DVT's * Plavix for recent PCI 06/17/24 - to continue for a total of 6 months. 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 * Holding oral hypoglycemics and initiating SSI. * Check A1C * Hypoglycemic protocol * Glucose checks AC and HS. (8) TIA (transient ischemic attack): Code(s): G45.9 - Transient cerebral ischemic attack, unspecified Status: Resolved Assessment and Plan: * History of. * Continue Statin and plavix (9) COPD (chronic obstructive pulmonary disease): Qualifiers: COPD type: unspecified COPD Qualified Code(s): J44.9 - Chronic obstructive pulmonary disease, unspecified Code(s): J44.9 - Chronic obstructive pulmonary disease, unspecified Status: Chronic Assessment and Plan: * Continue Breztri (10) Obstructive sleep apnea on CPAP: Code(s): G47.33 - Obstructive sleep apnea (adult) (pediatric); Z99.89 - Dependence on other enabling machines and devices Status: Chronic Assessment and Plan: * CPAP at HS (11) Obesity: Code(s): E66.9 - Obesity, unspecified Status: Chronic Assessment and Plan: * Recommend lifestyle changes to lower further cardiovascular risk. Quality VTE Prophylaxis VTE prophylaxis: pharmacologic ordered Hospitalist MIPS Advance Care Plan I have confirmed that the patient's Advanced Care Plan is present, code status is documented, or surrogate decision maker is listed in patient medical record.: Yes Medication Reconciliation I have utilized all available resources to obtain, update and review the patients current medications (includes all prescriptions, OTC, herbals, cannabis, and nutritional supplements).: Yes
--- NOTE | 2024-07-02 19:32 | ECG_ITS ---
Test Date: 2024-07-02 15:21:53 Measurements Intervals [place] Rate: 84 P: 49 [place]: 169 QRS: 23 QRSD: 162 T: 42 QT: 410 QTc: 487 Interpretive Statements SINUS RHYTHM RIGHT BUNDLE BRANCH BLOCK [120+ ms QRS DURATION, UPRIGHT V1, 40+ ms S IN I/aVL/V4/V5/V6] Compared to ECG 06/15/2024 16:35:28 Myocardial infarct finding no longer present Electronically Signed On 07-03-2024 16:01:09 CDT by Nathan Sanchez
[2024-07-02 19:38] LABS: NT Pro B Type Natriuretic Pept 41 pg/mL (19.9-100)
[2024-07-02 19:51] LABS: Hemoglobin A1C 6.9 % (<5.7)
--- NOTE | 2024-07-02 19:52 | ECG_ITS ---
Test Date: 2024-07-02 20:02:01 Measurements Intervals [place] Rate: 78 P: 33 ID: [id number] QRS: 17 QRSD: 157 T: 28 QT: 429 QTc: 491 Interpretive Statements SINUS RHYTHM RIGHT BUNDLE BRANCH BLOCK [120+ ms QRS DURATION, UPRIGHT V1, 40+ ms S IN I/aVL/V4/V5/V6] Compared to ECG 07/02/2024 15:21:53 No significant changes Electronically Signed On 07-03-2024 16:03:39 CDT by Nathan Sanhcez
[2024-07-02 20:05] LABS: Glucose Point of Care 243 mg/dl (65-105)
[2024-07-02] MEDS: carvediloL 12.5 MG TABLET PO (20:20)
[2024-07-02] MEDS: INSULIN ASPART (*BKC) 100 UNITS/ML SUB-Q (20:21)
[2024-07-02] MEDS: TAMSULOSIN HCL 0.4 MG CAPSULE PO (20:28)
[2024-07-02 20:44] LABS: Basophils Percent Auto 0.1 % (0.2-1.2); Eosinophils Absolute Auto 0.1 K/mm3 (0-0.3); Eosinophils Percent Auto 1.6 % (0-4.4); Hematocrit 42.9 % (42.0-52.0); Hemoglobin 14.1 g/dL (14.0-18.0); Immature Granulocyte Absolute 0.01 K/mm3 (0.00-0.031); Immature Granulocyte Percent A 0.1 % (0-0.5); Immature Platelet Fraction Pct 5.8 % (0.9-11.2); Lymphocytes Absolute Auto 1.15 K/mm3 (0.9-3.2); Lymphocytes Percent Auto 15.4 % (18.3-44.2); Mean Corpuscular HGB Conc 32.9 g/dl (32-36); Mean Corpuscular Hemoglobin 29.9 pg (26-34); Mean Corpuscular Volume 90.9 fl (80-100); Mean Platelet Volume 10.9 fl (7.4-10.4); Monocytes Absolute Auto 0.7 K/mm3 (0.1-0.6); Monocytes Percent Auto 8.8 % (2.6-8.5); Neutrophils Absolute Auto 5.5 K/mm3 (1.3-6.7); Platelet Count Result 147 k/mm3 (150-375); Red Blood Count 4.72 M/mm3 (4.6-6.20); Red Cell Distribution Width 13.6 % (11.5-14.5); White Blood Count 7.5 K/mm3 (4.5-10.0)
[2024-07-02 20:52] LABS: Prothrombin Time 13.9 Seconds (11.1-14.7)
[2024-07-02 20:53] LABS: Partial Thromboplastin Time 29.7 Seconds (22.3-36.8)
[2024-07-02] MEDS: HEPARIN SOD/D5W 100 UNITS/ML 25,000 UNITS/250 ML BAG 10 UNITS IV CONT (21:16)
[2024-07-02] MEDS: ALPRAZolam (*CRX) 0.25 MG TABLET PO (21:21)
--- NOTE | 2024-07-02 21:37 | P.PNCROSS_ITS ---
Event Note Event Note Event Note: I am called by the RN on IMU caring for this pt who discloses that the pt's Tro ponins have continued to increase in trend. Dr. Sanchez was notified, who advised to start on Heparin drip which has begun and the pt is to continue with Nitro and they will evaluate in AM. Margueriteto being held tonight for potential cath/intervention tomorrow. VSS and pt without any complaints of pain at this time.
[2024-07-03] VITALS (20 sets, daily range): BP systolic 106–128; BP diastolic 61–89; PULSE 65–79; RESP 14–22; TEMP 36.4–37.1; O2SAT 95–98
[2024-07-03 00:36] LABS: Partial Thromboplastin Time 37.6 Seconds (22.3-36.8)
[2024-07-03 04:24] LABS: Basophils Percent Auto 0.1 % (0.2-1.2); Eosinophils Absolute Auto 0.2 K/mm3 (0-0.3); Eosinophils Percent Auto 2.2 % (0-4.4); Hematocrit 39.7 % (42.0-52.0); Immature Granulocyte Absolute 0.03 K/mm3 (0.00-0.031); Immature Granulocyte Percent A 0.4 % (0-0.5); Immature Platelet Fraction Pct 5.9 % (0.9-11.2); Lymphocytes Absolute Auto 1.33 K/mm3 (0.9-3.2); Lymphocytes Percent Auto 17.4 % (18.3-44.2); Mean Corpuscular HGB Conc 32.7 g/dl (32-36); Mean Corpuscular Hemoglobin 30.2 pg (26-34); Mean Corpuscular Volume 92.1 fl (80-100); Mean Platelet Volume 11.6 fl (7.4-10.4); Monocytes Absolute Auto 0.7 K/mm3 (0.1-0.6); Monocytes Percent Auto 8.9 % (2.6-8.5); Neutrophils Absolute Auto 5.4 K/mm3 (1.3-6.7); Platelet Count Result 132 k/mm3 (150-375); Red Blood Count 4.31 M/mm3 (4.6-6.20); Red Cell Distribution Width 13.6 % (11.5-14.5); White Blood Count 7.6 K/mm3 (4.5-10.0)
[2024-07-03 04:37] LABS: INR 1.1; Prothrombin Time 14.8 Seconds (11.1-14.7)
[2024-07-03 04:38] LABS: Partial Thromboplastin Time 35.7 Seconds (22.3-36.8)
[2024-07-03 04:42] LABS: Alanine Aminotransferase 35 U/L (6-50); Albumin Level 4.1 g/dL (3.5-5.1); Alkaline Phosphatase 62 U/L (38-126); Anion Gap 12 mmol/L (4-12); Aspartate Amino Transferase 31 U/L (17-59); Bilirubin,Total 0.6 mg/dL (0.2-1.3); Blood Urea Nitrogen 19 mg/dL (9-20); Calcium 8.9 mg/dL (8.4-10.2); Carbon Dioxide 19 mmol/L (22-30); Chloride 105 mmol/L (98-107); Estimated CRCL calculation 81 ml/min; Estimated Glomerular Filt Rate > 60; Glucose 195 mg/dL (65-110); Magnesium 1.8 mg/dL (1.6-2.3); Potassium 4.3 mmol/L (3.4-5.0); Sodium 136 mmol/L (137-145)
[2024-07-03] MEDS: HEPARIN SODIUM 5,000 UNITS/ML VIAL 4000 UNITS IV PUSH ×2 (04:44→11:25)
[2024-07-03] MEDS: NITROGLYCERIN OINTMENT 1 INCH DOSE TRANSDERM ×3 (06:29→17:50)
[2024-07-03] MEDS: FLUTICASONE/UMECLIDIN/VILANTER 100-62.5-25 MCG ELLIPTA 1 PUFF INHALATION (08:26)
[2024-07-03] MEDS: CLOPIDOGREL BISULFATE 75 MG TABLET PO (09:07)
[2024-07-03] MEDS: FUROSEMIDE 40 MG TABLET PO (09:07)
[2024-07-03] MEDS: ATORVASTATIN 40 MG TABLET 80 MG PO (09:07)
[2024-07-03] MEDS: EMPAGLIFLOZIN 10 MG TABLET PO (09:07)
[2024-07-03] MEDS: carvediloL 12.5 MG TABLET PO ×2 (09:07→21:36)
[2024-07-03] MEDS: ISOSORBIDE MONONITRATE 60 MG TAB.ER.24H 120 MG PO (09:07)
[2024-07-03] MEDS: PANTOPRAZOLE 40 MG TABLET PO ×2 (09:08→21:37)
[2024-07-03] MEDS: buPROPion HCL SR (12 HR) 150 MG TAB PO ×2 (09:08→21:36)
[2024-07-03] MEDS: amLODIPine BESYLATE 10 MG TABLET PO (09:08)
[2024-07-03] MEDS: LOSARTAN POTASSIUM 100 MG TABLET PO (09:08)
--- NOTE | 2024-07-03 10:39 | P.PNIM_ITS ---
Progress Note: A&P Assessment and Plan (1) Chest pain: Qualifiers: Chest pain type: unspecified Qualified Code(s): R07.9 - Chest pain, unspecified Code(s): R07.9 - Chest pain, unspecified Status: Acute Assessment and Plan: * Continue telemetry * Cardiology has been consulted. * Continue Nitropaste * Trend trops * Trend EKG's * Initial trop is normal and EKG without any acute changes from June 17, 2024 * Continue all cardiac meds. * Heart healthy diet * Monitor and trend VS and labs. * Pain meds PRN (2) Coronary artery disease status post coronary stent insertion: Code(s): I25.10 - Atherosclerotic heart disease of [place] coronary artery without angina pectoris; Z95.5 - Presence of coronary angioplasty implant and graft Status: Acute Assessment and Plan: * 06/17/24 PCI to mid LAD for 60% stenosis. * Pt has two additional stents. * See #1 * On heparin infusion, aspirin and COreg * cardiology consulted and possible cardiac cath tomorrow (3) Hypertension: Code(s): I10 - Essential (primary) hypertension Status: Chronic Assessment and Plan: * Continue home medications * Monitor and trend VS and labs (4) Chronic heart failure with preserved ejection fraction (HFpEF): Code(s): I50.32 - Chronic diastolic (congestive) heart failure Status: Chronic Assessment and Plan: * Last ECHO 06/15/24 - shows Normal LVSF at 60-65% EF. * preserved ejection fraction noted. * Continue diuretics. * No new EKG findings of decompensating heart failure and pt appears euvolemic. * Routine BNP ordered as pt does not appear decompensated. * Telemetry * Daily weight (5) HLD (hyperlipidemia): Qualifiers: Hyperlipidemia type: unspecified Qualified Code(s): E78.5 - Hyperlipidemia, unspecified Code(s): E78.5 - Hyperlipidemia, unspecified Status: Chronic Assessment and Plan: * Heart healthy diet * Recommend lifestyle changes (6) Chronic anticoagulation: Code(s): Z79.01 - M[facility] (current) use of anticoagulants Status: Chronic Assessment and Plan: * Xarelto for hx of DVT's * Plavix for recent PCI 06/17/24 - to continue for a total of 6 months. 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 * Holding oral hypoglycemics and initiating SSI. * Check A1C * Hypoglycemic protocol * Glucose checks AC and HS. (8) TIA (transient ischemic attack): Code(s): G45.9 - Transient cerebral ischemic attack, unspecified Status: Resolved Assessment and Plan: * History of. * Continue Statin and plavix (9) COPD (chronic obstructive pulmonary disease): Qualifiers: COPD type: unspecified COPD Qualified Code(s): J44.9 - Chronic obstructive pulmonary disease, unspecified Code(s): J44.9 - Chronic obstructive pulmonary disease, unspecified Status: Chronic Assessment and Plan: * Continue Breztri (10) Obstructive sleep apnea on CPAP: Code(s): G47.33 - Obstructive sleep apnea (adult) (pediatric); Z99.89 - Dependence on other enabling machines and devices Status: Chronic Assessment and Plan: * CPAP at HS (11) Obesity: Code(s): E66.9 - Obesity, unspecified Status: Chronic Assessment and Plan: * Recommend lifestyle changes to lower further cardiovascular risk. Plan DVT prophylaxis on Heparin in fusion Subjective Date/time seen: 07/03/24 10:39 Interval history: Comfortable at bedside Review of Systems Review of Systems: All systems reviewed & are unremarkable except as noted in HPI and below Exam Const: General: comfortable and no acute distress Other: Morbidly obese male patient sitting up in stretcher at this time in no acute distress. HENMT: Mouth: Yes moist mucous membranes Eyes: General: appearance normal, both eyes and all related structures Neck: Neck: supple and no JVD Other: Full active range of motion in all directions without rigidity. Chest: Other: Non-tender to palpation Resp: Effort & Inspection: normal respiratory effort Auscultation: clear to auscultation bilaterally Cardio: Rate: regular rate Rhythm: regular rhythm Heart sounds: no gallops, Murmur heart sound present and no rubs Other: Grade 2 systolic murmur GI: Auscultation: normal bowel sounds Other: Rotund abdomen Skin: General skin exam: normal color, no rashes or lesions noted and no erythema Wounds: no wounds Neuro: General: gait normal Speech: normal speech Motor exam (neuro): 5/5 motor strength present throughout and Normal motor muscle tone present throughout Sensory Exam: normal sensation Extrem: General: edema (trace bilateral) Psych: Mental Status: mental status grossly normal Affect: normal affect Objective Data Vital Signs Vital Signs: Vital Signs - 24 hr 07/02/24 15:18 07/02/24 15:32 07/02/24 15:47 Temperature Pulse Rate 84 87 93 Respiratory Rate 27 H 18 20 Blood Pressure 152/87 H 122/74 Pulse Oximetry 99 100 97 Oxygen Delivery Room Air Fraction of Inspired Oxygen 07/02/24 17:02 07/02/24 17:32 07/02/24 17:47 Temperature 97.6 F 97.7 F Pulse Rate 80 80 84 Respiratory Rate 16 17 18 Blood Pressure 128/108 H 136/87 147/88 H Pulse Oximetry 96 95 96 Oxygen Delivery Fraction of Inspired Oxygen 07/02/24 18:25 07/02/24 20:00 07/02/24 20:00 Temperature 98.0 F 97.5 F L Pulse Rate 76 76 Respiratory Rate 20 Blood Pressure 147/83 H 121/72 Pulse Oximetry 98 98 Oxygen Delivery Room Air Fraction of Inspired Oxygen 07/02/24 20:00 07/02/24 20:20 07/02/24 21:36 Temperature Pulse Rate 81 77 Respiratory Rate Blood Pressure Pulse Oximetry Oxygen Delivery Autopap Fraction of Inspired Oxygen 07/02/24 22:00 07/03/24 00:00 07/03/24 00:00 Temperature 97.5 F L Pulse Rate 71 71 Respiratory Rate 20 Blood Pressure 106/62 Pulse Oximetry 96 Oxygen Delivery Room Air Fraction of Inspired Oxygen 07/03/24 00:00 07/03/24 02:00 07/03/24 02:24 Temperature Pulse Rate 68 65 Respiratory Rate Blood Pressure Pulse Oximetry Oxygen Delivery Autopap Fraction of Inspired Oxygen 07/03/24 04:00 07/03/24 04:00 07/03/24 04:00 Temperature 97.7 F Pulse Rate 69 68 Respiratory Rate 20 Blood Pressure 128/73 Pulse Oximetry 95 Oxygen Delivery Room Air Fraction of Inspired Oxygen 07/03/24 05:52 07/03/24 07:32 07/03/24 08:00 Temperature 98.7 F Pulse Rate 67 66 67 Respiratory Rate 16 Blood Pressure 121/73 Pulse Oximetry 98 Oxygen Delivery Fraction of Inspired Oxygen 07/03/24 08:00 07/03/24 08:26 07/03/24 09:07 Temperature Pulse Rate 72 Respiratory Rate Blood Pressure Pulse Oximetry 95 Oxygen Delivery Room Air Room Air Fraction of Inspired Oxygen 21 07/03/24 10:00 Temperature Pulse Rate 78 Respiratory Rate Blood Pressure Pulse Oximetry Oxygen Delivery Fraction of Inspired Oxygen Intake/Output Intake/Output: Intake & Output 06/30/24 07/01/24 07/02/24 07/03/24 23:59 23:59 23:59 23:59 Intake Total 2304.8 Output Total 900 Balance 1404.8 Meds/Results Medications: Active Medications Generic Name Dose Route Start Last Admin Trade Name Freq PRN Reason Stop Dose Admin Acetaminophen 1,000 mg 07/02/24 19:23 Acetaminophen 500 Mg Tablet PO Q6H PRN Mild Pain (1-3) or Fever Hydrocodone Bitart/Acetaminophen 1 tab 07/02/24 19:23 Hydrocodone/Acetaminophen (*Crx) 5-325 Mg Tablet PO Q6H PRN Pain Rated 4-6 Alprazolam 0.25 mg 07/02/24 21:00 07/02/24 21:21 Alprazolam (*Crx) 0.25 Mg Tablet PO 0.25 mg HS BUZZ Administration Amlodipine Besylate 10 mg 07/03/24 09:00 07/03/24 09:08 Amlodipine Besylate 10 Mg Tablet PO 10 mg DAILY BUZZ Administration Aspirin 81 mg 07/03/24 10:20 Aspirin 81 Mg Enteric Tablet PO QAM BUZZ Atorvastatin Calcium 80 mg 07/03/24 09:00 07/03/24 09:07 Atorvastatin 40 Mg Tablet PO 80 mg DAILY BUZZ Administration Bupropion HCl 150 mg 07/03/24 09:00 07/03/24 09:08 Bupropion Hcl Sr (12 Hr) 150 Mg Tab PO 150 mg Q12HR BUZZ Administration Carvedilol 12.5 mg 07/02/24 21:00 07/03/24 09:07 Carvedilol 12.5 Mg Tablet PO 12.5 mg Q12HR BUZZ Administration Clopidogrel Bisulfate 75 mg 07/03/24 09:00 07/03/24 09:07 Clopidogrel Bisulfate 75 Mg Tablet PO 75 mg QAM BUZZ Administration Dextrose 12.5 gm 07/02/24 19:23 Dextrose 50% 25 Gm/50 Ml Syringe IV PUSH PRN PRN Hypoglycemia Protocol Empagliflozin 10 mg 07/03/24 09:00 07/03/24 09:07 Empagliflozin 10 Mg Tablet PO 10 mg DAILY BUZZ Administration Fluticasone/Umeclidinium/Vilanterol 1 puff 07/03/24 08:00 07/03/24 08:26 Fluticasone/Umeclidin/Vilanter 100-62.5-25 Mcg Ellipta INHALATION 1 puff DAILYRT BUZZ Administration Furosemide 40 mg 07/03/24 09:00 07/03/24 09:07 Furosemide 40 Mg Tablet PO 40 mg DAILY BUZZ Administration Glucagon 1 mg 07/02/24 19:23 Glucagon For Inj 1 Mg Vial IM PRN PRN Hypoglycemia Protocol Glucose 15 gm 07/02/24 19:23 Glucose Oral Gel 15 Gm Of Glucse In 37.5 Gm Tube PO PRN PRN Hypoglycemia Protocol Heparin Sodium (Porcine) 4,000 units 07/02/24 20:12 07/03/24 04:44 Heparin Sodium 5,000 Units/Ml Vial IV PUSH 4,000 units PRN PRN Administration aPTT less than 55 seconds Heparin Sodium (Porcine) 4,000 units 07/02/24 20:12 Heparin Sodium 5,000 Units/Ml Vial IV PUSH PRN PRN aPTT 55 - 70 seconds Dextrose 1,000 mls @ 100 mls/hr 07/02/24 19:23 Dextrose 5% 1,000 Ml IVPB PRN PRN Hypoglycemia Protocol Heparin Sodium/Dextrose 25,000 units in 250 mls @ 14 mls/hr 07/02/24 20:15 07/03/24 04:45 Heparin Sodium/D5w 100 Units/Ml IV CONT 1,400 units/hr .[id number] BUZZ 14 mls/hr Titration Protocol 1,400 UNITS/HR Insulin Aspart 2 - 5 units 07/03/24 08:00 07/03/24 07:51 Insulin Aspart (*Bkc) 100 Units/Ml SUB-Q Not Given TIDWM BUZZ Protocol Insulin Aspart 1 - 2 units 07/02/24 21:00 07/02/24 20:21 Insulin Aspart (*Bkc) 100 Units/Ml SUB-Q 1 units HS BUZZ Administration Protocol Isosorbide Mononitrate 120 mg 07/03/24 09:00 07/03/24 09:07 Isosorbide Mononitrate 60 Mg Tab.Er.24h PO 120 mg DAILY BUZZ Administration Losartan Potassium 100 mg 07/03/24 09:00 07/03/24 09:08 Losartan Potassium 100 Mg Tablet PO 100 mg DAILY BUZZ Administration Miscellaneous Information 0 each 07/02/24 00:01 Dulaglutide (Trulicity) Nonform Can Pt Bring From Home Or Hold While Here??? XX 08/01/24 00:00 [facility] Morphine Sulfate 2 mg 07/02/24 19:23 Morphine Sulfate (*Crx) 2 Mg/Ml Inj IV PUSH Q4H PRN Pain Rated 7-10 Nitroglycerin 1 inch 07/03/24 00:00 07/03/24 06:29 Nitroglycerin Ointment 1 Inch Dose TRANSDERM 1 inch Q6HR BUZZ Administration Pantoprazole Sodium 40 mg 07/03/24 09:00 07/03/24 09:08 Pantoprazole 40 Mg Tablet PO 40 mg Q12HR BUZZ Administration Rivaroxaban 2.5 mg 07/03/24 09:00 Rivaroxaban 2.5 Mg Tablet PO BID BUZZ Tamsulosin HCl 0.4 mg 07/02/24 21:00 07/02/24 20:28 Tamsulosin Hcl 0.4 Mg Capsule PO 0.4 mg HS [facility] Administration Radiology Results: ITS Impressions Chest X-Ray 07/02/24 16:26 IMPRESSION: No acute cardiopulmonary process. Labs Labs: Laboratory Results - last 24 hr 07/02/24 07/02/24 07/02/24 15:26 15:27 18:30 WBC 6.3 RBC 4.64 Hgb 14.1 Hct 41.3 L MCV 89.0 MCH 30.4 MCHC 34.1 RDW 13.6 Plt Count 129 L MPV 10.9 H Immature Gran % (Auto) 0.2 Neut % (Auto) 75.7 H Lymph % (Auto) 14.5 L [place] % (Auto) 7.7 Eos % (Auto) 1.6 Baso % (Auto) 0.3 Lymph # (Auto) 0.92 [place] # (Auto) 0.5 Eos # (Auto) 0.1 Baso # (Auto) 0.0 Abs Immat Gran (auto) 0.01 Absolute Neuts (auto) 4.8 Absolute Nucleated RBC 0.000 Nucleated RBC % 0.0 % Immature Plt Fraction 5.2 PT 13.3 INR 1.0 APTT 28.5 Sodium 136 L Potassium 4.2 Chloride 102 Carbon Dioxide 20 L Anion Gap 14 H BUN 17 Creatinine 1.04 Estim Creat Clear Calc 90 Estimated GFR > 60 Glucose 300 H POC Capillary Glucose Hemoglobin A1c 6.9 H Calcium 9.1 Magnesium Total Bilirubin 0.6 AST 27 ALT 37 Alkaline Phosphatase 69 Troponin I < 0.012 1.090 H* D NT-Pro-B Natriuret Pep 41 Total Protein 8.0 Albumin 4.4 Lipase 144 07/02/24 07/02/24 07/03/24 19:34 20:34 00:14 WBC 7.5 RBC 4.72 Hgb 14.1 Hct 42.9 MCV 90.9 MCH 29.9 MCHC 32.9 RDW 13.6 Plt Count 147 L MPV 10.9 H Immature Gran % (Auto) 0.1 Neut % (Auto) 74.0 H Lymph % (Auto) 15.4 L [place] % (Auto) 8.8 H Eos % (Auto) 1.6 Baso % (Auto) 0.1 L Lymph # (Auto) 1.15 [place] # (Auto) 0.7 H Eos # (Auto) 0.1 Baso # (Auto) 0.0 Abs Immat Gran (auto) 0.01 Absolute Neuts (auto) 5.5 Absolute Nucleated RBC 0.000 Nucleated RBC % 0.0 % Immature Plt Fraction 5.8 PT 13.9 INR 1.0 APTT 29.7 37.6 H Sodium Potassium Chloride Carbon Dioxide Anion Gap BUN Creatinine Estim Creat Clear Calc Estimated GFR Glucose POC Capillary Glucose 243 H Hemoglobin A1c Calcium Magnesium Total Bilirubin AST ALT Alkaline Phosphatase Troponin I 2.850 H* D 4.100 H* D NT-Pro-B Natriuret Pep Total Protein Albumin Lipase 07/03/24 03:44 WBC 7.6 RBC 4.31 L Hgb 13.0 L Hct 39.7 L MCV 92.1 MCH 30.2 MCHC 32.7 RDW 13.6 Plt Count 132 L MPV 11.6 H Immature Gran % (Auto) 0.4 Neut % (Auto) 71.0 Lymph % (Auto) 17.4 L [place] % (Auto) 8.9 H Eos % (Auto) 2.2 Baso % (Auto) 0.1 L Lymph # (Auto) 1.33 [place] # (Auto) 0.7 H Eos # (Auto) 0.2 Baso # (Auto) 0.0 Abs Immat Gran (auto) 0.03 Absolute Neuts (auto) 5.4 Absolute Nucleated RBC 0.000 Nucleated RBC % 0.0 % Immature Plt Fraction 5.9 PT 14.8 H INR 1.1 APTT 35.7 Sodium 136 L Potassium 4.3 Chloride 105 Carbon Dioxide 19 L Anion Gap 12 BUN 19 Creatinine 1.16 Estim Creat Clear Calc 81 Estimated GFR > 60 Glucose 195 H POC Capillary Glucose Hemoglobin A1c Calcium 8.9 Magnesium 1.8 Total Bilirubin 0.6 AST 31 ALT 35 Alkaline Phosphatase 62 Troponin I 3.690 H* NT-Pro-B Natriuret Pep Total Protein 7.0 Albumin 4.1 Lipase Quality VTE Prophylaxis VTE prophylaxis: pharmacologic ordered
[2024-07-03] MEDS: ASPIRIN 81 MG ENTERIC TABLET PO (10:50)
[2024-07-03 11:10] LABS: Partial Thromboplastin Time 63.9 Seconds (22.3-36.8)
[2024-07-03] MEDS: INSULIN ASPART (*BKC) 100 UNITS/ML SUB-Q ×2 (11:38→21:37)
[2024-07-03 11:45] LABS: Glucose Point of Care 279 mg/dl (65-105)
[2024-07-03 11:45] LABS: Glucose Point of Care 189 mg/dl (65-105)
--- NOTE | 2024-07-03 14:41 | PM.CNCAR ---
Assessment and Plan Assessment and plan (1) Chronic heart failure with preserved ejection fraction (HFpEF): Code(s): I50.32 - Chronic diastolic (congestive) heart failure Status: Chronic (2) Chest pain: Qualifiers: Chest pain type: unspecified Qualified Code(s): R07.9 - Chest pain, unspecified Code(s): R07.9 - Chest pain, unspecified Status: Acute (3) HLD (hyperlipidemia): Qualifiers: Hyperlipidemia type: unspecified Qualified Code(s): E78.5 - Hyperlipidemia, unspecified Code(s): E78.5 - Hyperlipidemia, unspecified Status: Chronic Plan 1. CAD, prior PCI to pLAD, mLAD and LCX 2. NSTEMI 3. HTN 4. Hyperlipidemia 5. Chronic diastolic HF - ACS protocol - [facility] tomorrow - [facility] History of Present Illness History of Present Illness Consult date/time: 07/03/24 14:41 Requesting physician: Marlene Garcia APRN Consult reason: chest pain Reason For Visit: chest pain,status post cardiac stent placement Narrative: 63-year-old man with CAD status post PCI to LAD and left circumflex, chronic diastolic heart failure, CVA, hypertension, hyperlipidemia, diabetes type 2, and TAMIR on CPAP. he recently underwent PCI to mid LAD with jailing of the diag. he was discharged home and came in with NSTEMI Troponin peaked at 4.0 Currently chest pain free Review of Systems Cardiovascular: Cardiovascular: Reports as per HPI Respiratory: Respiratory: Reports as per HPI [facility] Past Medical History Medical History Hypertension Coronary artery disease Stent to the distal circumflex and Left anterior descending in 2014. Left anterior descending stent in 04/2015. COVID Transient ischemic attack Diabetic peripheral neuropathy Peripheral vascular disease Deep venous thrombosis Gastric ulcer Obstructive sleep apnea on CPAP Hyperlipidemia Type 2 diabetes mellitus Gastroesophageal reflux disease Chronic obstructive pulmonary disease Cerebrovascular accident Mild left-sided weakness. Congestive heart failure BMI greater than 40 Chronic anticoagulation Hydronephrosis Psoriasis Depression Fracture of fifth toe, right, closed Kidney stones Pneumonia Myocardial infarction Seasonal allergies Surgical History Surgical History History of coronary artery stent placement History of tonsillectomy History of cholecystectomy History of lithotripsy History of rectal polypectomy History of cardiac catheterization 2 stents Family History Family History Mother Diabetes mellitus Arthritis Kidney stones Coronary artery disease Father Acute myocardial infarction Heart disease Kidney stones Hypertension Coronary artery disease Sibling Coronary artery disease Heart disease Hx of CABG Social History Social History Social History: Surrogate decision maker: Renacornell Dodd, friend. Code status: Full code. Smoking packs per day: 1 Smoking cigarettes per day: 20.0 Years smoked: 30 Smoking pack-years: 30.00 Smoking status: Former smoker Tobacco type: cigarettes Second hand tobacco smoke exposure: No Smoking end date: 02/17/24 Alcohol intake: former Drinks per week: 0 Substance use: former Substance use type: does not use Last use: 10/01/2023 Do You Feel Safe in your Home?: Yes Lack of Transportation: No Lack of Food: Never True Current Housing: I Have Housing Concerned About Future Housing: No Difficulty Paying Gas/Electric Bills: No Difficulty Paying for Meds: No Currently Unemployed: No Education: Associate Degree Difficulty w/ Childcare or Family Care: No Living arrangements: with roommate(s) Additional living arrangements comments: The patient lives in [place] with a roommate. He has no children. Occupation/Education: other Additional occupation/education comments: Disabled. Spiritual care concerns: No Meds Home Medications and Allergies Home Medications ?Medication ?Instructions ?Recorded ?Confirmed ?Type amlodipine 10 mg tablet 10 mg PO DAILY 01/24/19 07/02/24 History bupropion HCl 150 mg tablet,12 hr 150 mg PO BID 01/24/19 07/02/24 History sustained-release (Wellbutrin SR) metformin 1,000 mg tablet 1,000 mg PO BID 01/24/19 07/02/24 History isosorbide mononitrate 60 mg 120 mg PO DAILY 01/09/20 07/02/24 History tablet,extended release 24 hr alprazolam 0.25 mg tablet 0.25 mg PO HS 08/21/21 07/02/24 History aspirin 81 mg chewable tablet 81 mg PO DAILY 07/31/22 05/03/25 History (Children's Aspirin) losartan 100 mg tablet 100 mg PO DAILY 05/02/24 07/02/24 History carvedilol 12.5 mg tablet (Coreg) 12.5 mg PO Q12HR #60 tabs 05/04/24 07/02/24 Rx empagliflozin 10 mg tablet 10 mg PO DAILY #30 tabs 05/04/24 07/02/24 Rx (Jardiance) nitroglycerin 0.4 mg sublingual 0.4 mg sublingual Q5MIN PRN Chest 05/04/24 07/02/24 Rx tablet (Nitrostat) Pain #26 tabs omeprazole 40 mg capsule,delayed 40 mg PO DAILY #30 caps 05/04/24 07/02/24 Rx release tamsulosin 0.4 mg capsule 0.4 mg PO HS #30 caps 05/04/24 07/02/24 Rx atorvastatin 80 mg tablet 80 mg PO DAILY 06/13/24 07/02/24 History dulaglutide 3 mg/0.5 mL 3 mg subcut WEEKLY 06/13/24 07/02/24 History subcutaneous pen injector (Trulicity) furosemide 40 mg tablet 40 mg PO DAILY 06/13/24 07/02/24 History clopidogrel 75 mg tablet 75 mg PO QAM #30 tabs 06/17/24 07/02/24 Rx rivaroxaban 2.5 mg tablet (Xarelto) 2.5 mg PO BID #60 tabs 06/17/24 07/02/24 Rx budesonide 160 mcg-glycopyr 9 2 inh inhalation BID 06/28/24 07/02/24 History mcg-formot 4.8 mcg/actuation HFA inhaler ([employer]) Allergies Allergy/AdvReac Type Severity Reaction Status Date / Time No Known Allergies Allergy Unknown Verified 07/02/24 15:25 Vital Signs Vital Signs - 24 hr 07/02/24 15:18 07/02/24 15:32 07/02/24 15:47 Temperature Pulse Rate 84 87 93 Respiratory Rate 27 H 18 20 Blood Pressure 152/87 H 122/74 Pulse Oximetry 99 100 97 Oxygen Delivery Room Air Fraction of Inspired Oxygen 07/02/24 17:02 07/02/24 17:32 07/02/24 17:47 Temperature 36.4 C 36.5 C Pulse Rate 80 80 84 Respiratory Rate 16 17 18 Blood Pressure 128/108 H 136/87 147/88 H Pulse Oximetry 96 95 96 Oxygen Delivery Fraction of Inspired Oxygen 07/02/24 18:25 07/02/24 20:00 07/02/24 20:00 Temperature 36.7 C 36.4 C L Pulse Rate 76 76 Respiratory Rate 20 Blood Pressure 147/83 H 121/72 Pulse Oximetry 98 98 Oxygen Delivery Room Air Fraction of Inspired Oxygen 07/02/24 20:00 07/02/24 20:20 07/02/24 21:36 Temperature Pulse Rate 81 77 Respiratory Rate Blood Pressure Pulse Oximetry Oxygen Delivery Autopap Fraction of Inspired Oxygen 07/02/24 22:00 07/03/24 00:00 07/03/24 00:00 Temperature 36.4 C L Pulse Rate 71 71 Respiratory Rate 20 Blood Pressure 106/62 Pulse Oximetry 96 Oxygen Delivery Room Air Fraction of Inspired Oxygen 07/03/24 00:00 07/03/24 02:00 07/03/24 02:24 Temperature Pulse Rate 68 65 Respiratory Rate Blood Pressure Pulse Oximetry Oxygen Delivery Autopap Fraction of Inspired Oxygen 07/03/24 04:00 07/03/24 04:00 07/03/24 04:00 Temperature 36.5 C Pulse Rate 69 68 Respiratory Rate 20 Blood Pressure 128/73 Pulse Oximetry 95 Oxygen Delivery Room Air Fraction of Inspired Oxygen 07/03/24 05:52 07/03/24 07:32 07/03/24 08:00 Temperature 37.1 C Pulse Rate 67 66 67 Respiratory Rate 16 Blood Pressure 121/73 Pulse Oximetry 98 Oxygen Delivery Fraction of Inspired Oxygen 07/03/24 08:00 07/03/24 08:26 07/03/24 09:07 Temperature Pulse Rate 72 Respiratory Rate Blood Pressure Pulse Oximetry 95 Oxygen Delivery Room Air Room Air Fraction of Inspired Oxygen 21 07/03/24 10:00 07/03/24 11:51 Temperature 36.7 C Pulse Rate 78 71 Respiratory Rate 14 Blood Pressure 109/64 Pulse Oximetry 98 Oxygen Delivery Fraction of Inspired Oxygen Exam Const: General: comfortable Neck: Neck: no JVD Resp: Effort & Inspection: normal respiratory effort Auscultation: rales Cardio: Rate: regular rate Rhythm: regular rhythm Extrem: General: pedal edema Results Labs and Meds 07/03/24 03:44 07/03/24 03:44 Lab results: Cardiac Enzymes 07/02/24 07/02/24 07/02/24 Range/Units 15:27 18:30 20:34 AST 27 (17-59) U/L Troponin I < 0.012 1.090 H* D 2.850 H* D (0.000-0.034) ng/mL 07/03/24 07/03/24 Range/Units 00:14 03:44 AST 31 (17-59) U/L Troponin I 4.100 H* D 3.690 H* (0.000-0.034) ng/mL Coagulation 07/02/24 07/02/24 07/03/24 Range/Units 15:27 20:34 00:14 PT 13.3 13.9 (11.1-14.7) Seconds APTT 28.5 29.7 37.6 H (22.3-36.8) Seconds 07/03/24 07/03/24 Range/Units 03:44 10:43 PT 14.8 H (11.1-14.7) Seconds APTT 35.7 63.9 H (22.3-36.8) Seconds CBC 07/02/24 07/02/24 07/03/24 Range/Units 15:27 20:34 03:44 WBC 6.3 7.5 7.6 (4.5-10.0) K/mm3 RBC 4.64 4.72 4.31 L (4.6-6.20) M/mm3 Hgb 14.1 14.1 13.0 L (14.0-18.0) g/dL Hct 41.3 L 42.9 39.7 L (42.0-52.0) % Plt Count 129 L 147 L 132 L (150-375) k/mm3 Lymph # (Auto) 0.92 1.15 1.33 (0.9-3.2) K/mm3 [place] # (Auto) 0.5 0.7 H 0.7 H (0.1-0.6) K/mm3 Eos # (Auto) 0.1 0.1 0.2 (0-0.3) K/mm3 Baso # (Auto) 0.0 0.0 0.0 (0.0-0.1) K/mm3 Comprehensive Metabolic Panel 07/02/24 07/03/24 Range/Units 15:27 03:44 Sodium 136 L 136 L (137-145) mmol/L Potassium 4.2 4.3 (3.4-5.0) mmol/L Chloride 102 105 (98-107) mmol/L Carbon Dioxide 20 L 19 L (22-30) mmol/L BUN 17 19 (9-20) mg/dL Creatinine 1.04 1.16 (0.7-1.3) mg/dL Glucose 300 H 195 H (65-110) mg/dL Calcium 9.1 8.9 (8.4-10.2) mg/dL AST 27 31 (17-59) U/L ALT 37 35 (6-50) U/L Alkaline Phosphatase 69 62 (38-126) U/L Total Protein 8.0 7.0 (6.3-8.2) g/dL Albumin 4.4 4.1 (3.5-5.1) g/dL Intake and Output 07/02/24 07/03/24 07/03/24 23:59 07:59 15:59 Intake Total 1754.8 883.3 Output Total 900 Balance 854.8 883.3 Intake: IV 74.8 93.3 Heparin Sod/D5w 100 Units/ml 25 74.8 93.3 ,000 units In 250 ml @ 1,400 UNITS/HR 14 mls/hr IV CONT . [id number] COUNTS INCLUDE 234 BEDS AT THE [facility] Rx#:[id number] Oral [id number] Output: Urine 900 Patient Weight 07/03/24 23:59 Weight 136 kg
[2024-07-03] MEDS: HEPARIN SOD/D5W 100 UNITS/ML 25,000 UNITS/250 ML BAG 16 UNITS IV CONT (16:05)
[2024-07-03 16:42] LABS: Glucose Point of Care 190 mg/dl (65-105)
[2024-07-03 17:35] LABS: Partial Thromboplastin Time 80.8 Seconds (22.3-36.8)
[2024-07-03 20:21] LABS: Glucose Point of Care 233 mg/dl (65-105)
[2024-07-03] MEDS: TAMSULOSIN HCL 0.4 MG CAPSULE PO (21:36)
[2024-07-03] MEDS: ALPRAZolam (*CRX) 0.25 MG TABLET PO (21:37)
[2024-07-04] VITALS (33 sets, daily range): BP systolic 105–136; BP diastolic 62–88; PULSE 68–90; RESP 14–22; TEMP 36.1–37.2; O2SAT 78–100
[2024-07-04] MEDS: NITROGLYCERIN OINTMENT 1 INCH DOSE TRANSDERM ×2 (00:33→05:43)
[2024-07-04 00:36] LABS: Partial Thromboplastin Time 55.9 Seconds (22.3-36.8)
[2024-07-04] MEDS: HEPARIN SODIUM 5,000 UNITS/ML VIAL 4000 UNITS IV PUSH (00:44)
[2024-07-04] MEDS: HEPARIN SOD/D5W 100 UNITS/ML 25,000 UNITS/250 ML BAG 18 UNITS IV CONT ×2 (05:42→18:56)
[2024-07-04 06:34] LABS: Basophils Percent Auto 0.3 % (0.2-1.2); Eosinophils Absolute Auto 0.2 K/mm3 (0-0.3); Eosinophils Percent Auto 2.4 % (0-4.4); Hematocrit 40.9 % (42.0-52.0); Hemoglobin 13.6 g/dL (14.0-18.0); Immature Granulocyte Absolute 0.02 K/mm3 (0.00-0.031); Immature Granulocyte Percent A 0.3 % (0-0.5); Lymphocytes Absolute Auto 1.32 K/mm3 (0.9-3.2); Lymphocytes Percent Auto 19.8 % (18.3-44.2); Mean Corpuscular HGB Conc 33.3 g/dl (32-36); Mean Corpuscular Hemoglobin 29.7 pg (26-34); Mean Corpuscular Volume 89.3 fl (80-100); Mean Platelet Volume 11.6 fl (7.4-10.4); Monocytes Absolute Auto 0.6 K/mm3 (0.1-0.6); Monocytes Percent Auto 9.4 % (2.6-8.5); Neutrophils Absolute Auto 4.5 K/mm3 (1.3-6.7); Neutrophils Percent Auto 67.8 % (45.5-73.1); Platelet Count Result 128 k/mm3 (150-375); Red Blood Count 4.58 M/mm3 (4.6-6.20); Red Cell Distribution Width 13.6 % (11.5-14.5); White Blood Count 6.7 K/mm3 (4.5-10.0)
[2024-07-04 06:44] LABS: Alanine Aminotransferase 38 U/L (6-50); Albumin Level 4.3 g/dL (3.5-5.1); Alkaline Phosphatase 69 U/L (38-126); Anion Gap 10 mmol/L (4-12); Aspartate Amino Transferase 29 U/L (17-59); Bilirubin,Total 0.7 mg/dL (0.2-1.3); Blood Urea Nitrogen 22 mg/dL (9-20); Carbon Dioxide 21 mmol/L (22-30); Chloride 104 mmol/L (98-107); Estimated CRCL calculation 77 ml/min; Estimated Glomerular Filt Rate 60; Glucose 199 mg/dL (65-110); Magnesium 1.9 mg/dL (1.6-2.3); Potassium 4.1 mmol/L (3.4-5.0); Sodium 135 mmol/L (137-145)
[2024-07-04 06:48] LABS: Partial Thromboplastin Time 95.4 Seconds (22.3-36.8)
[2024-07-04] MEDS: ATORVASTATIN 40 MG TABLET 80 MG PO (08:13)
[2024-07-04] MEDS: ASPIRIN 81 MG ENTERIC TABLET PO (08:13)
[2024-07-04] MEDS: carvediloL 12.5 MG TABLET PO ×2 (08:14→20:17)
[2024-07-04] MEDS: PANTOPRAZOLE 40 MG TABLET PO ×2 (08:14→20:17)
[2024-07-04] MEDS: amLODIPine BESYLATE 10 MG TABLET PO (08:14)
[2024-07-04] MEDS: EMPAGLIFLOZIN 10 MG TABLET PO (08:14)
[2024-07-04] MEDS: LOSARTAN POTASSIUM 100 MG TABLET PO (08:14)
[2024-07-04] MEDS: CLOPIDOGREL BISULFATE 75 MG TABLET PO (08:14)
[2024-07-04] MEDS: buPROPion HCL SR (12 HR) 150 MG TAB PO ×2 (08:14→20:17)
[2024-07-04] MEDS: ISOSORBIDE MONONITRATE 60 MG TAB.ER.24H 120 MG PO (08:14)
[2024-07-04 08:39] LABS: Glucose Point of Care 215 mg/dl (65-105)
--- NOTE | 2024-07-04 09:05 | WPDHPUPDATE1 ---
History and Physical Update Update Date/Time: 07/04/24 09:05 History and Physical has been reviewed, including an updated exam of the patient. There are NO changes in the patient's condition. Risks, benefits, and alternatives have been discussed and questions answered. Patient agrees to proceed with procedure.
--- NOTE | 2024-07-04 09:05 | WPDMODSED ---
Moderate Sedation Note-Pt Data Patient Data Diagnosis: NSTEMI Present Complaint: NSTEMI Procedure to be performed/Plan: Coronary angiography, left heart cath, +/- PCI Allergies Allergy/AdvReac Type Severity Reaction Status Date / Time No Known Allergies Allergy Unknown Verified 07/02/24 15:25 Home Medications ?Medication ?Instructions ?Recorded ?Confirmed ?Type amlodipine 10 mg tablet 10 mg PO DAILY 01/24/19 07/02/24 History bupropion HCl 150 mg tablet,12 hr 150 mg PO BID 01/24/19 07/02/24 History sustained-release (Wellbutrin SR) metformin 1,000 mg tablet 1,000 mg PO BID 01/24/19 07/02/24 History isosorbide mononitrate 60 mg 120 mg PO DAILY 01/09/20 07/02/24 History tablet,extended release 24 hr alprazolam 0.25 mg tablet 0.25 mg PO HS 08/21/21 07/02/24 History aspirin 81 mg chewable tablet 81 mg PO DAILY 09/29/21 07/02/24 History (Children's Aspirin) losartan 100 mg tablet 100 mg PO DAILY 05/02/24 07/02/24 History carvedilol 12.5 mg tablet (Coreg) 12.5 mg PO Q12HR #60 tabs 05/04/24 07/02/24 Rx empagliflozin 10 mg tablet 10 mg PO DAILY #30 tabs 05/04/24 07/02/24 Rx (Jardiance) nitroglycerin 0.4 mg sublingual 0.4 mg sublingual Q5MIN PRN Chest 05/04/24 07/02/24 Rx tablet (Nitrostat) Pain #26 tabs omeprazole 40 mg capsule,delayed 40 mg PO DAILY #30 caps 05/04/24 07/02/24 Rx release tamsulosin 0.4 mg capsule 0.4 mg PO HS #30 caps 05/04/24 07/02/24 Rx atorvastatin 80 mg tablet 80 mg PO DAILY 06/13/24 07/02/24 History dulaglutide 3 mg/0.5 mL 3 mg subcut WEEKLY 06/13/24 07/02/24 History subcutaneous pen injector (Trulicity) furosemide 40 mg tablet 40 mg PO DAILY 06/13/24 07/02/24 History clopidogrel 75 mg tablet 75 mg PO QAM #30 tabs 06/17/24 07/02/24 Rx rivaroxaban 2.5 mg tablet (Xarelto) 2.5 mg PO BID #60 tabs 06/17/24 07/02/24 Rx budesonide 160 mcg-glycopyr 9 2 inh inhalation BID 06/28/24 07/02/24 History mcg-formot 4.8 mcg/actuation HFA inhaler (Breztri Aerosphere) Current Medications: Active Medications Acetaminophen (Acetaminophen 500 Mg Tablet) 1,000 mg PO Q6H PRN PRN Reason: Mild Pain (1-3) or Fever Hydrocodone Bitart/Acetaminophen (Hydrocodone/Acetaminophen (*Crx) 5-325 Mg Tablet) 1 tab PO Q6H PRN PRN Reason: Pain Rated 4-6 Alprazolam (Alprazolam (*Crx) 0.25 Mg Tablet) 0.25 mg PO [facility] Last Admin: 07/03/24 21:37 Dose: 0.25 mg Amlodipine Besylate (Amlodipine Besylate 10 Mg Tablet) 10 mg PO DAILY [facility] Last Admin: 07/04/24 08:14 Dose: 10 mg Aspirin (Aspirin 81 Mg Enteric Tablet) 81 mg PO QAM [facility] Last Admin: 07/04/24 08:13 Dose: 81 mg Atorvastatin Calcium (Atorvastatin 40 Mg Tablet) 80 mg PO DAILY [facility] Last Admin: 07/04/24 08:13 Dose: 80 mg Bupropion HCl (Bupropion Hcl Sr (12 Hr) 150 Mg Tab) 150 mg PO Q12HR [facility] Last Admin: 07/04/24 08:14 Dose: 150 mg Carvedilol (Carvedilol 12.5 Mg Tablet) 12.5 mg PO Q12HR [facility] Last Admin: 07/04/24 08:14 Dose: 12.5 mg Clopidogrel Bisulfate (Clopidogrel Bisulfate 75 Mg Tablet) 75 mg PO QAM [facility] Last Admin: 07/04/24 08:14 Dose: 75 mg Dextrose (Dextrose 50% 25 Gm/50 Ml Syringe) 12.5 gm IV PUSH PRN PRN; Protocol PRN Reason: Hypoglycemia Empagliflozin (Empagliflozin 10 Mg Tablet) 10 mg PO DAILY [facility] Last Admin: 07/04/24 08:14 Dose: 10 mg Fluticasone/Umeclidinium/Vilanterol (Fluticasone/Umeclidin/Vilanter 100-62.5-25 Mcg Ellipta) 1 puff INHALATION DAILYRT [facility] Last Admin: 07/04/24 08:32 Dose: Not Given Furosemide (Furosemide 40 Mg Tablet) 40 mg PO DAILY [facility] Last Admin: 07/03/24 09:07 Dose: 40 mg Glucagon (Glucagon For Inj 1 Mg Vial) 1 mg IM PRN PRN; Protocol PRN Reason: Hypoglycemia Glucose (Glucose Oral Gel 15 Gm Of Glucse In 37.5 Gm Tube) 15 gm PO PRN PRN; Protocol PRN Reason: Hypoglycemia Heparin Sodium (Porcine) (Heparin Sodium 5,000 Units/Ml Vial) 4,000 units IV PUSH PRN PRN PRN Reason: aPTT less than 55 seconds Last Admin: 07/04/24 00:44 Dose: 4,000 units Heparin Sodium (Porcine) (Heparin Sodium 5,000 Units/Ml Vial) 4,000 units IV PUSH PRN PRN PRN Reason: aPTT 55 - 70 seconds Dextrose (Dextrose 5% 1,000 Ml) 1,000 mls @ 100 mls/hr IVPB PRN PRN; Protocol PRN Reason: Hypoglycemia Heparin Sodium/Dextrose (Heparin Sodium/D5w 100 Units/Ml) 25,000 units in 250 mls @ 18 mls/hr IV CONT .[id number] BUZZ; Protocol Last Titration: 07/04/24 06:57 Dose: 1,800 units/hr, 18 mls/hr Insulin Aspart (Insulin Aspart (*Bkc) 100 Units/Ml) 2 - 5 units SUB-Q TIDWM BUZZ; Protocol Last Admin: 07/03/24 17:01 Dose: Not Given Insulin Aspart (Insulin Aspart (*Bkc) 100 Units/Ml) 1 - 2 units SUB-Q HS BUZZ; Protocol Last Admin: 07/03/24 21:37 Dose: 1 units Isosorbide Mononitrate (Isosorbide Mononitrate 60 Mg Tab.Er.24h) 120 mg PO DAILY [facility] Last Admin: 07/04/24 08:14 Dose: 120 mg Losartan Potassium (Losartan Potassium 100 Mg Tablet) 100 mg PO DAILY [facility] Last Admin: 07/04/24 08:14 Dose: 100 mg Miscellaneous Information (Dulaglutide (Trulicity) Nonform Can Pt Bring From Home Or Hold While Here???) 0 each XX CLARIFY BUZZ Stop: 08/01/24 00:00 Morphine Sulfate (Morphine Sulfate (*Crx) 2 Mg/Ml Inj) 2 mg IV PUSH Q4H PRN PRN Reason: Pain Rated 7-10 Nitroglycerin (Nitroglycerin Ointment 1 Inch Dose) 1 inch TRANSDERM Q6HR [facility] Last Admin: 07/04/24 05:43 Dose: 1 inch Pantoprazole Sodium (Pantoprazole 40 Mg Tablet) 40 mg PO Q12HR [facility] Last Admin: 07/04/24 08:14 Dose: 40 mg Rivaroxaban (Rivaroxaban 2.5 Mg Tablet) 2.5 mg PO BID [facility] Tamsulosin HCl (Tamsulosin Hcl 0.4 Mg Capsule) 0.4 mg PO HS [facility] Last Admin: 07/03/24 21:36 Dose: 0.4 mg Sedation/Anesthesia: No previous sedation/anesthesia problems (including family history). [facility] Past Medical History Medical History Hypertension Coronary artery disease Stent to the distal circumflex and Left anterior descending in 2014. Left anterior descending stent in 04/2015. COVID Transient ischemic attack Diabetic peripheral neuropathy Peripheral vascular disease Deep venous thrombosis Gastric ulcer Obstructive sleep apnea on CPAP Hyperlipidemia Type 2 diabetes mellitus Gastroesophageal reflux disease Chronic obstructive pulmonary disease Cerebrovascular accident Mild left-sided weakness. Congestive heart failure BMI greater than 40 Chronic anticoagulation Hydronephrosis Psoriasis Depression Fracture of fifth toe, right, closed Kidney stones Pneumonia Myocardial infarction Seasonal allergies Surgical History Surgical History History of coronary artery stent placement History of tonsillectomy History of cholecystectomy History of lithotripsy History of rectal polypectomy History of cardiac catheterization 2 stents Family History Family History Mother Diabetes mellitus Arthritis Kidney stones Coronary artery disease Father Acute myocardial infarction Heart disease Kidney stones Hypertension Coronary artery disease Sibling Coronary artery disease Heart disease Hx of CABG Social History Social History Social History: Surrogate decision maker: Rena Dodd, friend. Code status: Full code. Smoking packs per day: 1 Smoking cigarettes per day: 20.0 Years smoked: 30 Smoking pack-years: 30.00 Smoking status: Former smoker Tobacco type: cigarettes Second hand tobacco smoke exposure: No Smoking end date: 02/17/24 Alcohol intake: former Drinks per week: 0 Substance use: former Substance use type: does not use Last use: 10/01/2023 Do You Feel Safe in your Home?: Yes Lack of Transportation: No Lack of Food: Never True Current Housing: I Have Housing Concerned About Future Housing: No Difficulty Paying Gas/Electric Bills: No Difficulty Paying for Meds: No Currently Unemployed: No Education: Associate Degree Difficulty w/ Childcare or Family Care: No Living arrangements: with roommate(s) Additional living arrangements comments: The patient lives in [place] with a roommate. He has no children. Occupation/Education: other Additional occupation/education comments: Disabled. Spiritual care concerns: No Mod Sed Physical Exam Physical Exam Pre Procedural Exam: Normal: Lungs, Heart Rate, Heart Rhythm, Neuro Exam, Extremities and Skin and Variation: Appearance (Morbidly obese) Hours since solid foods: 12 Hours since liquid intake: 8 Mallampati Classification: class III Internal Medicine - PN: Obj Da Vital Signs Vital Signs: Vital Signs - 24 hr 07/03/24 09:07 07/03/24 10:00 07/03/24 11:51 Temperature 36.7 C Pulse Rate 72 78 71 Respiratory Rate 14 Blood Pressure 109/64 Pulse Oximetry 98 Oxygen Delivery Fraction of Inspired Oxygen 07/03/24 12:00 07/03/24 12:00 07/03/24 14:00 Temperature Pulse Rate 71 74 Respiratory Rate Blood Pressure Pulse Oximetry Oxygen Delivery Room Air Fraction of Inspired Oxygen 07/03/24 16:00 07/03/24 16:00 07/03/24 16:00 Temperature 37.1 C Pulse Rate 76 73 Respiratory Rate 18 Blood Pressure 115/89 Pulse Oximetry 97 Oxygen Delivery Room Air Fraction of Inspired Oxygen 07/03/24 18:00 07/03/24 20:00 07/03/24 20:12 Temperature 36.5 C Pulse Rate 78 79 74 Respiratory Rate 22 H Blood Pressure 116/68 Pulse Oximetry 97 Oxygen Delivery Fraction of Inspired Oxygen 07/03/24 21:16 07/03/24 21:30 07/03/24 21:36 Temperature Pulse Rate 72 72 Respiratory Rate 20 Blood Pressure Pulse Oximetry 95 Oxygen Delivery Room Air Room Air Fraction of Inspired Oxygen 07/03/24 22:00 07/03/24 23:11 07/03/24 23:18 Temperature 37.0 C Pulse Rate 75 75 Respiratory Rate 22 H Blood Pressure 120/61 Pulse Oximetry 98 Oxygen Delivery Autopap Fraction of Inspired Oxygen 07/04/24 00:00 07/04/24 00:30 07/04/24 01:21 Temperature Pulse Rate 73 Respiratory Rate Blood Pressure Pulse Oximetry 78 L Oxygen Delivery Room Air Autopap Fraction of Inspired Oxygen 07/04/24 02:00 07/04/24 02:00 07/04/24 04:00 Temperature Pulse Rate 77 74 Respiratory Rate Blood Pressure Pulse Oximetry 84 L Oxygen Delivery Autopap Fraction of Inspired Oxygen 07/04/24 04:10 07/04/24 04:59 07/04/24 06:00 Temperature 36.9 C Pulse Rate 70 72 Respiratory Rate 22 H Blood Pressure 120/70 Pulse Oximetry 93 Oxygen Delivery Room Air Fraction of Inspired Oxygen 07/04/24 08:00 07/04/24 08:14 07/04/24 08:33 Temperature 37.2 C Pulse Rate 73 69 Respiratory Rate 18 Blood Pressure 136/74 Pulse Oximetry 98 95 Oxygen Delivery Room Air Fraction of Inspired Oxygen Intake/Output Intake/Output: Intake & Output 07/01/24 07/02/24 07/03/24 07/04/24 23:59 23:59 23:59 23:59 Intake Total 4081.1 771.7 Output Total 3000 900 Balance 1081.1 -128.3 Meds/Results Medications: Active Medications Generic Name Dose Route Start Last Admin Trade Name Freq PRN Reason Stop Dose Admin Acetaminophen 1,000 mg 07/02/24 19:23 Acetaminophen 500 Mg Tablet PO Q6H PRN Mild Pain (1-3) or Fever Hydrocodone Bitart/Acetaminophen 1 tab 07/02/24 19:23 Hydrocodone/Acetaminophen (*Crx) 5-325 Mg Tablet PO Q6H PRN Pain Rated 4-6 Alprazolam 0.25 mg 07/02/24 21:00 07/03/24 21:37 Alprazolam (*Crx) 0.25 Mg Tablet PO 0.25 mg HS BUZZ Administration Amlodipine Besylate 10 mg 07/03/24 09:00 07/04/24 08:14 Amlodipine Besylate 10 Mg Tablet PO 10 mg DAILY BUZZ Administration Aspirin 81 mg 07/03/24 10:20 07/04/24 08:13 Aspirin 81 Mg Enteric Tablet PO 81 mg QAM BUZZ Administration Atorvastatin Calcium 80 mg 07/03/24 09:00 07/04/24 08:13 Atorvastatin 40 Mg Tablet PO 80 mg DAILY BUZZ Administration Bupropion HCl 150 mg 07/03/24 09:00 07/04/24 08:14 Bupropion Hcl Sr (12 Hr) 150 Mg Tab PO 150 mg Q12HR BUZZ Administration Carvedilol 12.5 mg 07/02/24 21:00 07/04/24 08:14 Carvedilol 12.5 Mg Tablet PO 12.5 mg Q12HR BUZZ Administration Clopidogrel Bisulfate 75 mg 07/03/24 09:00 07/04/24 08:14 Clopidogrel Bisulfate 75 Mg Tablet PO 75 mg QAM BUZZ Administration Dextrose 12.5 gm 07/02/24 19:23 Dextrose 50% 25 Gm/50 Ml Syringe IV PUSH PRN PRN Hypoglycemia Protocol Empagliflozin 10 mg 07/03/24 09:00 07/04/24 08:14 Empagliflozin 10 Mg Tablet PO 10 mg DAILY BUZZ Administration Fluticasone/Umeclidinium/Vilanterol 1 puff 07/03/24 08:00 07/04/24 08:32 Fluticasone/Umeclidin/Vilanter 100-62.5-25 Mcg Ellipta INHALATION Not Given DAILYRT BUZZ Furosemide 40 mg 07/03/24 09:00 07/03/24 09:07 Furosemide 40 Mg Tablet PO 40 mg DAILY BUZZ Administration Glucagon 1 mg 07/02/24 19:23 Glucagon For Inj 1 Mg Vial IM PRN PRN Hypoglycemia Protocol Glucose 15 gm 07/02/24 19:23 Glucose Oral Gel 15 Gm Of Glucse In 37.5 Gm Tube PO PRN PRN Hypoglycemia Protocol Heparin Sodium (Porcine) 4,000 units 07/02/24 20:12 07/04/24 00:44 Heparin Sodium 5,000 Units/Ml Vial IV PUSH 4,000 units PRN PRN Administration aPTT less than 55 seconds Heparin Sodium (Porcine) 4,000 units 07/02/24 20:12 Heparin Sodium 5,000 Units/Ml Vial IV PUSH PRN PRN aPTT 55 - 70 seconds Dextrose 1,000 mls @ 100 mls/hr 07/02/24 19:23 Dextrose 5% 1,000 Ml IVPB PRN PRN Hypoglycemia Protocol Heparin Sodium/Dextrose 25,000 units in 250 mls @ 18 mls/hr 07/02/24 20:15 07/04/24 06:57 Heparin Sodium/D5w 100 Units/Ml IV CONT 1,800 units/hr .[id number] BUZZ 18 mls/hr Titration Protocol 1,800 UNITS/HR Insulin Aspart 2 - 5 units 07/03/24 08:00 07/03/24 17:01 Insulin Aspart (*Bkc) 100 Units/Ml SUB-Q Not Given TIDWM [facility] Protocol Insulin Aspart 1 - 2 units 07/02/24 21:00 07/03/24 21:37 Insulin Aspart (*Bkc) 100 Units/Ml SUB-Q 1 units HS [facility] Administration Protocol Isosorbide Mononitrate 120 mg 07/03/24 09:00 07/04/24 08:14 Isosorbide Mononitrate 60 Mg Tab.Er.24h PO 120 mg DAILY BUZZ Administration Losartan Potassium 100 mg 07/03/24 09:00 07/04/24 08:14 Losartan Potassium 100 Mg Tablet PO 100 mg DAILY [facility] Administration Miscellaneous Information 0 each 07/02/24 00:01 Dulaglutide (Trulicity) Nonform Can Pt Bring From Home Or Hold While Here??? XX 08/01/24 00:00 CLARIFY [facility] Morphine Sulfate 2 mg 07/02/24 19:23 Morphine Sulfate (*Crx) 2 Mg/Ml Inj IV PUSH Q4H PRN Pain Rated 7-10 Nitroglycerin 1 inch 07/03/24 00:00 07/04/24 05:43 Nitroglycerin Ointment 1 Inch Dose TRANSDERM 1 inch Q6HR BUZZ Administration Pantoprazole Sodium 40 mg 07/03/24 09:00 07/04/24 08:14 Pantoprazole 40 Mg Tablet PO 40 mg Q12HR BUZZ Administration Rivaroxaban 2.5 mg 07/03/24 09:00 Rivaroxaban 2.5 Mg Tablet PO BID [facility] Tamsulosin HCl 0.4 mg 07/02/24 21:00 07/03/24 21:36 Tamsulosin Hcl 0.4 Mg Capsule PO 0.4 mg HS BUZZ Administration Radiology Results: ITS Impressions Chest X-Ray 07/02/24 16:26 IMPRESSION: No acute cardiopulmonary process. Labs 07/04/24 06:25 07/04/24 06:25 Labs: Laboratory Results - last 24 hr 05/06/2407/03/24 07/03/24 07:18 10:43 11:36 WBC RBC Hgb Hct MCV MCH MCHC RDW Plt Count MPV Immature Gran % (Auto) Neut % (Auto) Lymph % (Auto) [place] % (Auto) Eos % (Auto) Baso % (Auto) Lymph # (Auto) [place] # (Auto) Eos # (Auto) Baso # (Auto) Abs Immat Gran (auto) Absolute Neuts (auto) Absolute Nucleated RBC Nucleated RBC % % Immature Plt Fraction APTT 63.9 H Sodium Potassium Chloride Carbon Dioxide Anion Gap BUN Creatinine Estim Creat Clear Calc Estimated GFR Glucose POC Capillary Glucose 189 H 279 H Calcium Magnesium Total Bilirubin AST ALT Alkaline Phosphatase Total Protein Albumin 07/03/24 07/03/24 07/03/24 16:35 17:17 20:17 WBC RBC Hgb Hct MCV MCH MCHC RDW Plt Count MPV Immature Gran % (Auto) Neut % (Auto) Lymph % (Auto) [place] % (Auto) Eos % (Auto) Baso % (Auto) Lymph # (Auto) [place] # (Auto) Eos # (Auto) Baso # (Auto) Abs Immat Gran (auto) Absolute Neuts (auto) Absolute Nucleated RBC Nucleated RBC % % Immature Plt Fraction APTT 80.8 H Sodium Potassium Chloride Carbon Dioxide Anion Gap BUN Creatinine Estim Creat Clear Calc Estimated GFR Glucose POC Capillary Glucose 190 H 233 H Calcium Magnesium Total Bilirubin AST ALT Alkaline Phosphatase Total Protein Albumin 07/04/24 07/04/24 07/04/24 00:11 06:25 07:49 WBC 6.7 RBC 4.58 L Hgb 13.6 L Hct 40.9 L MCV 89.3 MCH 29.7 MCHC 33.3 RDW 13.6 Plt Count 128 L MPV 11.6 H Immature Gran % (Auto) 0.3 Neut % (Auto) 67.8 Lymph % (Auto) 19.8 [place] % (Auto) 9.4 H Eos % (Auto) 2.4 Baso % (Auto) 0.3 Lymph # (Auto) 1.32 [place] # (Auto) 0.6 Eos # (Auto) 0.2 Baso # (Auto) 0.0 Abs Immat Gran (auto) 0.02 Absolute Neuts (auto) 4.5 Absolute Nucleated RBC 0.000 Nucleated RBC % 0.0 % Immature Plt Fraction 6.0 APTT 55.9 H 95.4 H Sodium 135 L Potassium 4.1 Chloride 104 Carbon Dioxide 21 L Anion Gap 10 BUN 22 H Creatinine 1.21 Estim Creat Clear Calc 77 Estimated GFR 60 Glucose 199 H POC Capillary Glucose 215 H Calcium 9.0 Magnesium 1.9 Total Bilirubin 0.7 AST 29 ALT 38 Alkaline Phosphatase 69 Total Protein 7.0 Albumin 4.3 ASA Classification/Sedation ASA Classification/Sedation ASA Class: III Emergent: No Risks: Risks, benefits and alternatives explained and patient/family accepted plan for sedation. Patient re-evaluated immediately prior to sedation.
--- NOTE | 2024-07-04 10:06 | P.PCNCC_ITS ---
Cardiac Cath Procedure Note Date of procedure:: 07/04/24 Performing physician:: CATHETERIZATION LABORATORY REPORT Procedure Date: 07/04/2024 Nailing Machine Operator Automatic: Julio Richardson M.D., [facility]? Referring Physician: Dr. Sanchez ? Anesthesia: Versed and Fentanyl were ordered and given in my presence at 09:22, procedure ended at 09:53. Supervision of nurse monitored moderate sedation with Versed and Fentanyl was provided for 31 minutes. Total of Versed 1mg and Fentanyl 50mcg were administered by the Jewelry Sales Representative RN Qian Morley. Pre-op Diagnosis: NSTEMI Post-op Diagnosis: 1. Stable coronary artery disease compared to prior angiogram, with patent stents in the LAD and LCX. Slow flow noted on initial RCA angiogram. 2. Significantly elevated left ventricular end-diastolic pressure of 36mmHg Procedure(s): 1. Moderate sedation 2. Ultrasound-guided access of the right radial artery 3. Coronary angiography 4. Left heart cath Access Site: Right radial artery Brief History and Clinical Indications: Patient is a 64 year old male with CAD s/p prior PCI with recent PCI to the LAD in May 2024 who is referred for [facility] for NSTEMI. All risks, benefits and alternatives to left heart catheterization with or without percutaneous coronary intervention was discussed at length with the patient. Risk of complications including but not limited to bleeding, infection, arrhythmia, stroke, worsening kidney function, blood loss, groin hematoma, limb loss, emergency coronary artery bypass grafting, and even were discussed with the patient and all questions were answered. The patient understood and wished to proceed. Time out called, patient name, date of , medical record number, allergies, procedure performed, identify Nailing Machine Operator Automatic, patient and staff member concurred with accurate data, procedure carried on. Findings: LEFT HEART CATHETERIZATION FINDINGS: 1. Left main: The left main coronary artery is patent without any significant obstructive disease. The left pain is short. 2. Left anterior descending: Patent stents in the proximal-mid LAD. No obstructive disease in the first diagonal branch. The second diagonal branch is a small caliber vessel that arises at the stented portion of the LAD. The pro ximal portion of this small diagonal branch has 70% stenosis, which is angiographically unchanged compared to prior study. Remainder of the mid-distal LAD is small caliber vessel with mild diffuse disease without focal obstructive disease. The apical LAD has a 70% stenosis, which is unchanged compared to prior. 3. Left circumflex: The left circumflex artery has mild diffuse disease. Patent stent in the mid portion. There is mild 40% stenosis distal to the stent. 4. Right coronary artery: The RCA is the dominant vessel. Slow flow noted on initial RCA angiogram. The RCA has mild diffuse disease. There is mild disease in the mid portion of the RCA. 5. Left ventricle: A. End-diastolic pressure 36 mmHg. B. LV gram deferred. C. No significant gradient across aortic valve on catheter pullback. Description of Procedure: Informed consent signed and placed in the chart. Patient transferred to laborer electroplating room. Prepped and draped in usual sterile fashion. 2% lidocaine injected subcutaneously in right wrist area. 22-gauge venipuncture catheter used to access the right radial artery under ultrasound guidance. 6-FR slender sheath placed in right radial artery. Nitroglycerine and Verapamil were given intraarterial through the sheath. Versacore wire advanced under fluoroscopy 5F FL 4 diagnostic catheter engaged Left Main Coronary Artery. 5F FR 4 diagnostic catheter engaged Right Coronary Artery Multiple orthogonal angiogram obtained and reviewed 5F Pigtail diagnostic catheter crossed aortic valve to obtain LVEDP, LV angiogram deferred. Hemostasis was achieved by application of TR band. Disposition: Floor Plan: * Given significantly elevated LVEDP with slow flow noted on initial RCA angiogram, recommend optimization of HFpEF. Will hold PO Lasix and start IV Lasix 40mg BID. Please monitor strict I/Os. Will optimize heart failure GDMT. Continue Jardiance 10mg once daily, will switch Losartan to Entresto. Add Spironolactone. * Regarding CAD, continue ASA, Plavix, high intensity statin. Continue antianginal therapy -- Amlodipine, Coreg, Imdur. Already on maximal dose of Amlodipine, Imdur. Do have room to increase Coreg. Was on Ranolazine in the past but was taken off of it as it was thought that it may have caused body odor. However, will retry it and see if he can tolerate it now. * Continue aggressive medical therapy and risk factor modification. ? Julio Richardson M.D. Interventional Cardiology
[2024-07-04 13:42] LABS: Glucose Point of Care 272 mg/dl (65-105)
[2024-07-04] MEDS: INSULIN ASPART (*BKC) 100 UNITS/ML SUB-Q ×3 (13:45→20:18)
--- NOTE | 2024-07-04 16:38 | P.PNIM_ITS ---
Progress Note: A&P Assessment and Plan (1) Coronary artery disease status post coronary stent insertion: Code(s): I25.10 - Atherosclerotic heart disease of [place] coronary artery without angina pectoris; Z95.5 - Presence of coronary angioplasty implant and graft Status: Acute Assessment and Plan: * 06/17/24 PCI to mid LAD for 60% stenosis. * Continue heparin infusion, ASpirin, Coeg adn Lipitor * awaiting Cardiac cath today * cardiology following (2) Hypertension: Code(s): I10 - Essential (primary) hypertension Status: Chronic Assessment and Plan: * Continue home medications * Monitor and trend VS and labs (3) Chronic heart failure with preserved ejection fraction (HFpEF): Code(s): I50.32 - Chronic diastolic (congestive) heart failure Status: Chronic Assessment and Plan: * Last ECHO 06/15/24 - shows Normal LVSF at 60-65% EF. * preserved ejection fraction noted. * Continue diuretics. * No new EKG findings of decompensating heart failure and pt appears euvolemic. * Routine BNP ordered as pt does not appear decompensated. * Telemetry * Daily weight (4) HLD (hyperlipidemia): Qualifiers: Hyperlipidemia type: unspecified Qualified Code(s): E78.5 - Hyperlipidemia, unspecified Code(s): E78.5 - Hyperlipidemia, unspecified Status: Chronic Assessment and Plan: * Heart healthy diet * Recommend lifestyle changes (5) Chronic anticoagulation: Code(s): Z79.01 - care home (current) use of anticoagulants Status: Chronic Assessment and Plan: * Xarelto for hx of DVT's, Xarelto on hold for now as patietn is on heparin infusion * Plavix for recent PCI 06/17/24 - to continue for a total of 6 months. 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 * Continue Statin and plavix (8) COPD (chronic obstructive pulmonary disease): Qualifiers: COPD type: unspecified COPD Qualified Code(s): J44.9 - Chronic obstructive pulmonary disease, unspecified Code(s): J44.9 - Chronic obstructive pulmonary disease, unspecified Status: Chronic Assessment and Plan: * Continue Breztri (9) Obstructive sleep apnea on CPAP: Code(s): G47.33 - Obstructive sleep apnea (adult) (pediatric); Z99.89 - Dependence on other enabling machines and devices Status: Chronic Assessment and Plan: * CPAP at HS (10) Obesity: Code(s): E66.9 - Obesity, unspecified Status: Chronic Assessment and Plan: * Recommend lifestyle changes to lower further cardiovascular risk. Plan DVT prophylaxis on Heparin in fusion Subjective Date/time seen: 07/04/24 16:38 Interval history: Comfortable at bedside For cardiac cath today as at the time of encounter this morning Review of Systems Review of Systems: All systems reviewed & are unremarkable except as noted in HPI and below Exam Const: General: comfortable and no acute distress Other: Morbidly obese male patient sitting up in stretcher at this time in no acute distress. HENMT: Mouth: Yes moist mucous membranes Eyes: General: appearance normal, both eyes and all related structures Neck: Neck: supple and no JVD Other: Full active range of motion in all directions without rigidity. Chest: Other: Non-tender to palpation Resp: Effort & Inspection: normal respiratory effort Auscultation: clear to auscultation bilaterally Cardio: Rate: regular rate Rhythm: regular rhythm Heart sounds: no gallops, Murmur heart sound present and no rubs Other: Grade 2 systolic murmur GI: Auscultation: normal bowel sounds Other: Rotund abdomen Skin: General skin exam: normal color, no rashes or lesions noted and no erythema Wounds: no wounds Neuro: General: gait normal Speech: normal speech Motor exam (neuro): 5/5 motor strength present throughout and Normal motor muscle tone present throughout Sensory Exam: normal sensation Extrem: General: edema (trace bilateral) Psych: Mental Status: mental status grossly normal Affect: normal affect Objective Data Vital Signs Vital Signs: Vital Signs - 24 hr 07/03/24 18:00 07/03/24 20:00 07/03/24 20:12 Temperature 97.7 F Pulse Rate 78 79 74 Pulse Rate [Bilateral Radial Palpation] Respiratory Rate 22 H Blood Pressure 116/68 Pulse Oximetry 97 Oxygen Delivery Fraction of Inspired Oxygen 07/03/24 21:16 07/03/24 21:30 07/03/24 21:36 Temperature Pulse Rate 72 72 Pulse Rate [Bilateral Radial Palpation] Respiratory Rate 20 Blood Pressure Pulse Oximetry 95 Oxygen Delivery Room Air Room Air Fraction of Inspired Oxygen 21 07/03/24 22:00 07/03/24 23:11 07/03/24 23:18 Temperature 98.6 F Pulse Rate 75 75 Pulse Rate [Bilateral Radial Palpation] Respiratory Rate 22 H Blood Pressure 120/61 Pulse Oximetry 98 Oxygen Delivery Autopap Fraction of Inspired Oxygen 07/04/24 00:00 07/04/24 00:30 07/04/24 01:21 Temperature Pulse Rate 73 Pulse Rate [Bilateral Radial Palpation] Respiratory Rate Blood Pressure Pulse Oximetry 78 L Oxygen Delivery Room Air Autopap Fraction of Inspired Oxygen 07/04/24 02:00 07/04/24 02:00 07/04/24 04:00 Temperature Pulse Rate 77 74 Pulse Rate [Bilateral Radial Palpation] Respiratory Rate Blood Pressure Pulse Oximetry 84 L Oxygen Delivery Autopap Fraction of Inspired Oxygen 07/04/24 04:10 07/04/24 04:59 07/04/24 06:00 Temperature 98.5 F Pulse Rate 70 72 Pulse Rate [Bilateral Radial Palpation] Respiratory Rate 22 H Blood Pressure 120/70 Pulse Oximetry 93 Oxygen Delivery Room Air Fraction of Inspired Oxygen 07/04/24 08:00 07/04/24 08:14 07/04/24 08:33 Temperature 99 F Pulse Rate 73 69 Pulse Rate [Bilateral Radial Palpation] Respiratory Rate 18 Blood Pressure 136/74 Pulse Oximetry 98 95 Oxygen Delivery Room Air Fraction of Inspired Oxygen 07/04/24 10:15 07/04/24 10:15 07/04/24 10:30 Temperature Pulse Rate 69 Pulse Rate [Bilateral Radial Palpation] 69 69 Respiratory Rate 17 Blood Pressure 127/79 Pulse Oximetry 97 Oxygen Delivery Room Air Fraction of Inspired Oxygen 07/04/24 10:30 07/04/24 10:45 07/04/24 10:45 Temperature Pulse Rate 69 68 Pulse Rate [Bilateral Radial Palpation] 68 Respiratory Rate 16 16 Blood Pressure 126/74 128/71 Pulse Oximetry 97 97 Oxygen Delivery Room Air Room Air Fraction of Inspired Oxygen 07/04/24 11:00 07/04/24 11:00 07/04/24 11:15 Temperature Pulse Rate 76 Pulse Rate [Bilateral Radial Palpation] 76 71 Respiratory Rate 20 Blood Pressure 121/79 Pulse Oximetry 97 Oxygen Delivery Room Air Fraction of Inspired Oxygen 07/04/24 11:15 07/04/24 11:30 07/04/24 11:30 Temperature Pulse Rate 71 69 Pulse Rate [Bilateral Radial Palpation] 69 Respiratory Rate 18 17 Blood Pressure 119/72 124/76 Pulse Oximetry 99 97 Oxygen Delivery Room Air Room Air Fraction of Inspired Oxygen 07/04/24 11:45 07/04/24 11:45 07/04/24 12:00 Temperature Pulse Rate 77 Pulse Rate [Bilateral Radial Palpation] 77 75 Respiratory Rate 19 Blood Pressure 114/71 Pulse Oximetry 98 Oxygen Delivery Room Air Fraction of Inspired Oxygen 07/04/24 12:00 07/04/24 12:15 07/04/24 12:15 Temperature Pulse Rate 75 69 Pulse Rate [Bilateral Radial Palpation] 69 Respiratory Rate 17 15 Blood Pressure 121/86 105/69 Pulse Oximetry 94 97 Oxygen Delivery Room Air Room Air Fraction of Inspired Oxygen 07/04/24 12:30 07/04/24 12:30 07/04/24 12:45 Temperature Pulse Rate 69 Pulse Rate [Bilateral Radial Palpation] 69 71 Respiratory Rate 14 Blood Pressure 114/64 Pulse Oximetry 97 Oxygen Delivery Room Air Fraction of Inspired Oxygen 07/04/24 12:45 07/04/24 13:00 07/04/24 13:00 Temperature Pulse Rate 71 69 Pulse Rate [Bilateral Radial Palpation] 69 Respiratory Rate 18 15 Blood Pressure 121/62 112/65 Pulse Oximetry 98 96 Oxygen Delivery Room Air Room Air Fraction of Inspired Oxygen 07/04/24 13:15 07/04/24 13:15 07/04/24 13:20 Temperature Pulse Rate 70 Pulse Rate [Bilateral Radial Palpation] 70 70 Respiratory Rate 16 Blood Pressure 113/64 Pulse Oximetry 97 Oxygen Delivery Room Air Fraction of Inspired Oxygen 07/04/24 13:58 07/04/24 14:00 Temperature 97 F L Pulse Rate 68 78 Pulse Rate [Bilateral Radial Palpation] Respiratory Rate 20 Blood Pressure 121/62 Pulse Oximetry 100 Oxygen Delivery Fraction of Inspired Oxygen Intake/Output Intake/Output: Intake & Output 07/01/24 07/02/24 07/03/2425 23:59 23:59 23:59 23:59 Intake Total 4081.1 771.7 Output Total 3000 900 Balance 1081.1 -128.3 Meds/Results Medications: Active Medications Generic Name Dose Route Start Last Admin Trade Name Freq PRN Reason Stop Dose Admin Acetaminophen 1,000 mg 07/02/24 19:23 Acetaminophen 500 Mg Tablet PO Q6H PRN Mild Pain (1-3) or Fever Hydrocodone Bitart/Acetaminophen 1 tab 07/02/24 19:23 Hydrocodone/Acetaminophen (*Crx) 5-325 Mg Tablet PO Q6H PRN Pain Rated 4-6 Alprazolam 0.25 mg 07/02/24 21:00 07/03/24 21:37 Alprazolam (*Crx) 0.25 Mg Tablet PO 0.25 mg HS BUZZ Administration Amlodipine Besylate 10 mg 07/03/24 09:00 07/04/24 08:14 Amlodipine Besylate 10 Mg Tablet PO 10 mg DAILY BUZZ Administration Aspirin 81 mg 07/03/24 10:20 07/04/24 08:13 Aspirin 81 Mg Enteric Tablet PO 81 mg QAM BUZZ Administration Atorvastatin Calcium 80 mg 07/03/24 09:00 07/04/24 08:13 Atorvastatin 40 Mg Tablet PO 80 mg DAILY BUZZ Administration Bupropion HCl 150 mg 07/03/24 09:00 07/04/24 08:14 Bupropion Hcl Sr (12 Hr) 150 Mg Tab PO 150 mg Q12HR BUZZ Administration Carvedilol 12.5 mg 07/02/24 21:00 07/04/24 08:14 Carvedilol 12.5 Mg Tablet PO 12.5 mg Q12HR BUZZ Administration Clopidogrel Bisulfate 75 mg 07/03/24 09:00 07/04/24 08:14 Clopidogrel Bisulfate 75 Mg Tablet PO 75 mg QAM BUZZ Administration Dextrose 12.5 gm 07/02/24 19:23 Dextrose 50% 25 Gm/50 Ml Syringe IV PUSH PRN PRN Hypoglycemia Protocol Empagliflozin 10 mg 07/03/24 09:00 07/04/24 08:14 Empagliflozin 10 Mg Tablet PO 10 mg DAILY BUZZ Administration Fluticasone/Umeclidinium/Vilanterol 1 puff 07/03/24 08:00 07/04/24 08:32 Fluticasone/Umeclidin/Vilanter 100-62.5-25 Mcg Ellipta INHALATION Not Given DAILYRT BUZZ Furosemide 40 mg 07/03/24 09:00 07/03/24 09:07 Furosemide 40 Mg Tablet PO 40 mg DAILY BUZZ Administration Furosemide 40 mg 07/04/24 17:00 Furosemide Inj 40 Mg/4 Ml Vial IV PUSH BID BUZZ Glucagon 1 mg 07/02/24 19:23 Glucagon For Inj 1 Mg Vial IM PRN PRN Hypoglycemia Protocol Glucose 15 gm 07/02/24 19:23 Glucose Oral Gel 15 Gm Of Glucse In 37.5 Gm Tube PO PRN PRN Hypoglycemia Protocol Heparin Sodium (Porcine) 4,000 units 07/02/24 20:12 07/04/24 00:44 Heparin Sodium 5,000 Units/Ml Vial IV PUSH 4,000 units PRN PRN Administration aPTT less than 55 seconds Heparin Sodium (Porcine) 4,000 units 07/02/24 20:12 Heparin Sodium 5,000 Units/Ml Vial IV PUSH PRN PRN aPTT 55 - 70 seconds Dextrose 1,000 mls @ 100 mls/hr 07/02/24 19:23 Dextrose 5% 1,000 Ml IVPB PRN PRN Hypoglycemia Protocol Heparin Sodium/Dextrose 25,000 units in 250 mls @ 18 mls/hr 07/02/24 20:15 07/04/24 06:57 Heparin Sodium/D5w 100 Units/Ml IV CONT 1,800 units/hr .[id number] BUZZ 18 mls/hr Titration Protocol 1,800 UNITS/HR Insulin Aspart 2 - 5 units 07/03/24 08:00 07/03/24 17:01 Insulin Aspart (*Bkc) 100 Units/Ml SUB-Q Not Given TIDWM [facility] Protocol Insulin Aspart 1 - 2 units 07/02/24 21:00 07/03/24 21:37 Insulin Aspart (*Bkc) 100 Units/Ml SUB-Q 1 units HS BZUZ Administration Protocol Isosorbide Mononitrate 120 mg 07/03/24 09:00 07/04/24 08:14 Isosorbide Mononitrate 60 Mg Tab.Er.24h PO 120 mg DAILY BUZZ Administration Miscellaneous Information 0 each 07/02/24 00:01 Dulaglutide (Trulicity) Nonform Can Pt Bring From Home Or Hold While Here??? XX 08/01/24 00:00 CLARIFY BUZZ Morphine Sulfate 2 mg 07/02/24 19:23 Morphine Sulfate (*Crx) 2 Mg/Ml Inj IV PUSH Q4H PRN Pain Rated 7-10 Pantoprazole Sodium 40 mg 07/03/24 09:00 07/04/24 08:14 Pantoprazole 40 Mg Tablet PO 40 mg Q12HR BUZZ Administration Ranolazine 500 mg 07/04/24 21:00 Ranolazine 500 Mg Tab.Er.12h PO Q12HR BUZZ Rivaroxaban 2.5 mg 07/03/24 09:00 Rivaroxaban 2.5 Mg Tablet PO BID BUZZ Sacubitril/Valsartan 1 tab 07/05/24 09:00 Sacubitril/Valsartan 24-26 Mg Tablet PO Q12HR BUZZ Spironolactone 25 mg 07/05/24 09:00 Spironolactone 25 Mg Tablet PO QAM BUZZ Tamsulosin HCl 0.4 mg 07/02/24 21:00 07/03/24 21:36 Tamsulosin Hcl 0.4 Mg Capsule PO 0.4 mg HS BUZZ Administration Radiology Results: ITS Impressions Chest X-Ray 07/02/24 16:26 IMPRESSION: No acute cardiopulmonary process. Labs Labs: Laboratory Results - last 24 hr 07/03/24 07/03/24 07/03/24 16:35 17:17 20:17 WBC RBC Hgb Hct MCV MCH MCHC RDW Plt Count MPV Immature Gran % (Auto) Neut % (Auto) Lymph % (Auto) [place] % (Auto) Eos % (Auto) Baso % (Auto) Lymph # (Auto) [place] # (Auto) Eos # (Auto) Baso # (Auto) Abs Immat Gran (auto) Absolute Neuts (auto) Absolute Nucleated RBC Nucleated RBC % % Immature Plt Fraction APTT 80.8 H Sodium Potassium Chloride Carbon Dioxide Anion Gap BUN Creatinine Estim Creat Clear Calc Estimated GFR Glucose POC Capillary Glucose 190 H 233 H Calcium Magnesium Total Bilirubin AST ALT Alkaline Phosphatase Total Protein Albumin 07/04/24 07/04/24 07/04/24 00:11 06:25 07:49 WBC 6.7 RBC 4.58 L Hgb 13.6 L Hct 40.9 L MCV 89.3 MCH 29.7 MCHC 33.3 RDW 13.6 Plt Count 128 L MPV 11.6 H Immature Gran % (Auto) 0.3 Neut % (Auto) 67.8 Lymph % (Auto) 19.8 [place] % (Auto) 9.4 H Eos % (Auto) 2.4 Baso % (Auto) 0.3 Lymph # (Auto) 1.32 [place] # (Auto) 0.6 Eos # (Auto) 0.2 Baso # (Auto) 0.0 Abs Immat Gran (auto) 0.02 Absolute Neuts (auto) 4.5 Absolute Nucleated RBC 0.000 Nucleated RBC % 0.0 % Immature Plt Fraction 6.0 APTT 55.9 H 95.4 H Sodium 135 L Potassium 4.1 Chloride 104 Carbon Dioxide 21 L Anion Gap 10 BUN 22 H Creatinine 1.21 Estim Creat Clear Calc 77 Estimated GFR 60 Glucose 199 H POC Capillary Glucose 215 H Calcium 9.0 Magnesium 1.9 Total Bilirubin 0.7 AST 29 ALT 38 Alkaline Phosphatase 69 Total Protein 7.0 Albumin 4.3 07/04/24 13:38 WBC RBC Hgb Hct MCV MCH MCHC RDW Plt Count MPV Immature Gran % (Auto) Neut % (Auto) Lymph % (Auto) [place] % (Auto) Eos % (Auto) Baso % (Auto) Lymph # (Auto) [place] # (Auto) Eos # (Auto) Baso # (Auto) Abs Immat Gran (auto) Absolute Neuts (auto) Absolute Nucleated RBC Nucleated RBC % % Immature Plt Fraction APTT Sodium Potassium Chloride Carbon Dioxide Anion Gap BUN Creatinine Estim Creat Clear Calc Estimated GFR Glucose POC Capillary Glucose 272 H Calcium Magnesium Total Bilirubin AST ALT Alkaline Phosphatase Total Protein Albumin Quality VTE Prophylaxis VTE prophylaxis: pharmacologic ordered
[2024-07-04 16:46] LABS: Glucose Point of Care 244 mg/dl (65-105)
[2024-07-04] MEDS: FUROSEMIDE INJ 40 MG/4 ML VIAL IV PUSH (17:42)
[2024-07-04] MEDS: TAMSULOSIN HCL 0.4 MG CAPSULE PO (20:17)
[2024-07-04] MEDS: RANOLAZINE 500 MG TAB.ER.12H PO (20:17)
[2024-07-04 20:38] LABS: Glucose Point of Care 237 mg/dl (65-105)
[2024-07-04] MEDS: ALPRAZolam (*CRX) 0.25 MG TABLET PO (21:53)
[2024-07-05] VITALS (11 sets, daily range): BP systolic 129–137; BP diastolic 71–78; PULSE 68–87; RESP 18–24; TEMP 36.5–36.6; O2SAT 95–97
[2024-07-05] MEDS: HEPARIN SODIUM 5,000 UNITS/ML VIAL 4000 UNITS IV PUSH ×2 (01:29→08:45)
[2024-07-05 07:43] LABS: Basophils Percent Auto 0.3 % (0.2-1.2); Eosinophils Absolute Auto 0.1 K/mm3 (0-0.3); Hematocrit 44.5 % (42.0-52.0); Hemoglobin 14.9 g/dL (14.0-18.0); Immature Granulocyte Absolute 0.02 K/mm3 (0.00-0.031); Immature Granulocyte Percent A 0.3 % (0-0.5); Immature Platelet Fraction Pct 6.3 % (0.9-11.2); Lymphocytes Absolute Auto 1.01 K/mm3 (0.9-3.2); Lymphocytes Percent Auto 15.8 % (18.3-44.2); Mean Corpuscular HGB Conc 33.5 g/dl (32-36); Mean Corpuscular Hemoglobin 29.9 pg (26-34); Mean Corpuscular Volume 89.2 fl (80-100); Mean Platelet Volume 10.9 fl (7.4-10.4); Monocytes Absolute Auto 0.6 K/mm3 (0.1-0.6); Monocytes Percent Auto 8.8 % (2.6-8.5); Neutrophils Absolute Auto 4.7 K/mm3 (1.3-6.7); Neutrophils Percent Auto 72.8 % (45.5-73.1); Platelet Count Result 128 k/mm3 (150-375); Red Blood Count 4.99 M/mm3 (4.6-6.20); Red Cell Distribution Width 13.8 % (11.5-14.5); White Blood Count 6.4 K/mm3 (4.5-10.0)
[2024-07-05 07:48] LABS: Glucose Point of Care 189 mg/dl (65-105)
--- NOTE | 2024-07-05 07:51 | P.PNIM_ITS ---
Progress Note: A&P Assessment and Plan (1) Coronary artery disease status post coronary stent insertion: Code(s): I25.10 - Atherosclerotic heart disease of [place] coronary artery without angina pectoris; Z95.5 - Presence of coronary angioplasty implant and graft Status: Acute Assessment and Plan: * 06/17/24 PCI to mid LAD for 60% stenosis. * Continue heparin infusion, ASpirin, Coeg adn Lipitor * awaiting Cardiac cath today * cardiology following (2) Hypertension: Code(s): I10 - Essential (primary) hypertension Status: Chronic Assessment and Plan: * Continue home medications * Monitor and trend VS and labs (3) Chronic heart failure with preserved ejection fraction (HFpEF): Code(s): I50.32 - Chronic diastolic (congestive) heart failure Status: Chronic Assessment and Plan: * Last ECHO 06/15/24 - shows Normal LVSF at 60-65% EF. * preserved ejection fraction noted. * Continue diuretics. * No new EKG findings of decompensating heart failure and pt appears euvolemic. * Routine BNP ordered as pt does not appear decompensated. * Telemetry * Daily weight (4) HLD (hyperlipidemia): Qualifiers: Hyperlipidemia type: unspecified Qualified Code(s): E78.5 - Hyperlipidemia, unspecified Code(s): E78.5 - Hyperlipidemia, unspecified Status: Chronic Assessment and Plan: * Heart healthy diet * Recommend lifestyle changes (5) Chronic anticoagulation: Code(s): Z79.01 - longterm (current) use of anticoagulants Status: Chronic Assessment and Plan: * Xarelto for hx of DVT's, Xarelto on hold for now as patietn is on heparin infusion * Plavix for recent PCI 06/17/24 - to continue for a total of 6 months. 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 * Continue Statin and plavix (8) COPD (chronic obstructive pulmonary disease): Qualifiers: COPD type: unspecified COPD Qualified Code(s): J44.9 - Chronic obstructive pulmonary disease, unspecified Code(s): J44.9 - Chronic obstructive pulmonary disease, unspecified Status: Chronic Assessment and Plan: * Continue Breztri (9) Obstructive sleep apnea on CPAP: Code(s): G47.33 - Obstructive sleep apnea (adult) (pediatric); Z99.89 - Dependence on other enabling machines and devices Status: Chronic Assessment and Plan: * CPAP at HS (10) Obesity: Code(s): E66.9 - Obesity, unspecified Status: Chronic Assessment and Plan: * Recommend lifestyle changes to lower further cardiovascular risk. Plan DVT prophylaxis on Heparin in fusion Subjective Date/time seen: 07/05/24 07:51 Review of Systems Review of Systems: All systems reviewed & are unremarkable except as noted in HPI and below Exam Const: General: comfortable and no acute distress Other: Morbidly obese male patient sitting up in stretcher at this time in no acute distress. HENMT: Mouth: Yes moist mucous membranes Eyes: General: appearance normal, both eyes and all related structures Neck: Neck: supple and no JVD Other: Full active range of motion in all directions without rigidity. Chest: Other: Non-tender to palpation Resp: Effort & Inspection: normal respiratory effort Auscultation: clear to auscultation bilaterally Cardio: Rate: regular rate Rhythm: regular rhythm Heart sounds: no gallops, Murmur heart sound present and no rubs Other: Grade 2 systolic murmur GI: Auscultation: normal bowel sounds Other: Rotund abdomen Skin: General skin exam: normal color, no rashes or lesions noted and no erythema Wounds: no wounds Neuro: General: gait normal Speech: normal speech Motor exam (neuro): 5/5 motor strength present throughout and Normal motor muscle tone present throughout Sensory Exam: normal sensation Extrem: General: edema (trace bilateral) Psych: Mental Status: mental status grossly normal Affect: normal affect Objective Data Vital Signs Vital Signs: Vital Signs - 24 hr 07/04/24 08:00 07/04/24 08:14 07/04/24 08:33 Temperature 99 F Pulse Rate 73 69 Pulse Rate [Bilateral Radial Palpation] Respiratory Rate 18 Blood Pressure 136/74 Pulse Oximetry 98 95 Oxygen Delivery Room Air 07/04/24 10:15 07/04/24 10:15 07/04/24 10:30 Temperature Pulse Rate 69 Pulse Rate [Bilateral Radial Palpation] 69 69 Respiratory Rate 17 Blood Pressure 127/79 Pulse Oximetry 97 Oxygen Delivery Room Air 07/04/24 10:30 07/04/24 10:45 07/04/24 10:45 Temperature Pulse Rate 69 68 Pulse Rate [Bilateral Radial Palpation] 68 Respiratory Rate 16 16 Blood Pressure 126/74 128/71 Pulse Oximetry 97 97 Oxygen Delivery Room Air Room Air 07/04/24 11:00 07/04/24 11:00 07/04/24 11:15 Temperature Pulse Rate 76 Pulse Rate [Bilateral Radial Palpation] 76 71 Respiratory Rate 20 Blood Pressure 121/79 Pulse Oximetry 97 Oxygen Delivery Room Air 07/04/24 11:15 07/04/24 11:30 07/04/24 11:30 Temperature Pulse Rate 71 69 Pulse Rate [Bilateral Radial Palpation] 69 Respiratory Rate 18 17 Blood Pressure 119/72 124/76 Pulse Oximetry 99 97 Oxygen Delivery Room Air Room Air 07/04/24 11:45 07/04/24 11:45 07/04/24 12:00 Temperature Pulse Rate 77 Pulse Rate [Bilateral Radial Palpation] 77 75 Respiratory Rate 19 Blood Pressure 114/71 Pulse Oximetry 98 Oxygen Delivery Room Air 07/04/24 12:00 07/04/24 12:15 07/04/24 12:15 Temperature Pulse Rate 75 69 Pulse Rate [Bilateral Radial Palpation] 69 Respiratory Rate 17 15 Blood Pressure 121/86 105/69 Pulse Oximetry 94 97 Oxygen Delivery Room Air Room Air 07/04/24 12:30 07/04/24 12:30 07/04/24 12:45 Temperature Pulse Rate 69 Pulse Rate [Bilateral Radial Palpation] 69 71 Respiratory Rate 14 Blood Pressure 114/64 Pulse Oximetry 97 Oxygen Delivery Room Air 07/04/24 12:45 07/04/24 13:00 07/04/24 13:00 Temperature Pulse Rate 71 69 Pulse Rate [Bilateral Radial Palpation] 69 Respiratory Rate 18 15 Blood Pressure 121/62 112/65 Pulse Oximetry 98 96 Oxygen Delivery Room Air Room Air 07/04/24 13:15 07/04/24 13:15 07/04/24 13:20 Temperature Pulse Rate 70 Pulse Rate [Bilateral Radial Palpation] 70 70 Respiratory Rate 16 Blood Pressure 113/64 Pulse Oximetry 97 Oxygen Delivery Room Air 07/04/24 13:58 07/04/24 14:00 07/04/24 15:00 Temperature 97 F L Pulse Rate 68 78 90 Pulse Rate [Bilateral Radial Palpation] Respiratory Rate 20 18 Blood Pressure 121/62 118/74 Pulse Oximetry 100 Oxygen Delivery 07/04/24 15:20 07/04/24 16:00 07/04/24 16:00 Temperature 97.8 F Pulse Rate 78 70 Pulse Rate [Bilateral Radial Palpation] 70 Respiratory Rate 18 Blood Pressure 130/71 Pulse Oximetry 96 Oxygen Delivery 07/04/24 18:00 07/04/24 20:00 07/04/24 20:00 Temperature 98.1 F Pulse Rate 70 77 Pulse Rate [Bilateral Radial Palpation] Respiratory Rate 18 Blood Pressure 125/88 Pulse Oximetry 95 Oxygen Delivery Room Air 07/04/24 20:00 07/04/24 20:17 07/04/24 22:00 Temperature Pulse Rate 77 77 71 Pulse Rate [Bilateral Radial Palpation] Respiratory Rate Blood Pressure Pulse Oximetry Oxygen Delivery 07/04/24 22:00 07/04/24 23:41 07/04/24 23:56 Temperature 97.7 F Pulse Rate 72 Pulse Rate [Bilateral Radial Palpation] Respiratory Rate 20 Blood Pressure 120/68 Pulse Oximetry 98 98 Oxygen Delivery Autopap CPAP 07/05/24 00:00 07/05/24 01:57 07/05/24 02:00 Temperature Pulse Rate 76 68 Pulse Rate [Bilateral Radial Palpation] Respiratory Rate Blood Pressure Pulse Oximetry Oxygen Delivery Autopap 07/05/24 04:00 07/05/24 04:00 07/05/24 04:00 Temperature 97.7 F Pulse Rate 73 69 Pulse Rate [Bilateral Radial Palpation] Respiratory Rate 24 H Blood Pressure 131/71 Pulse Oximetry 97 Oxygen Delivery CPAP 07/05/24 06:00 Temperature Pulse Rate 70 Pulse Rate [Bilateral Radial Palpation] Respiratory Rate Blood Pressure Pulse Oximetry Oxygen Delivery Intake/Output Intake/Output: Intake & Output 07/02/24 07/03/24 07/04/24 07/05/24 23:59 23:59 23:59 23:59 Intake Total 4081.1 1820.8 388.9 Output Total 3000 2250 1400 Balance 1081.1 -429.2 -1011.1 Meds/Results Medications: Active Medications Generic Name Dose Route Start Last Admin Trade Name Freq PRN Reason Stop Dose Admin Acetaminophen 1,000 mg 07/02/24 19:23 Acetaminophen 500 Mg Tablet PO Q6H PRN Mild Pain (1-3) or Fever Hydrocodone Bitart/Acetaminophen 1 tab 07/02/24 19:23 Hydrocodone/Acetaminophen (*Crx) 5-325 Mg Tablet PO Q6H PRN Pain Rated 4-6 Alprazolam 0.25 mg 07/02/24 21:00 07/04/24 21:53 Alprazolam (*Crx) 0.25 Mg Tablet PO 0.25 mg HS BUZZ Administration Amlodipine Besylate 10 mg 07/03/24 09:00 07/04/24 08:14 Amlodipine Besylate 10 Mg Tablet PO 10 mg DAILY BUZZ Administration Aspirin 81 mg 07/03/24 10:20 07/04/24 08:13 Aspirin 81 Mg Enteric Tablet PO 81 mg QAM BUZZ Administration Atorvastatin Calcium 80 mg 07/03/24 09:00 07/04/24 08:13 Atorvastatin 40 Mg Tablet PO 80 mg DAILY BUZZ Administration Bupropion HCl 150 mg 07/03/24 09:00 07/04/24 20:17 Bupropion Hcl Sr (12 Hr) 150 Mg Tab PO 150 mg Q12HR BUZZ Administration Carvedilol 12.5 mg 07/02/24 21:00 07/04/24 20:17 Carvedilol 12.5 Mg Tablet PO 12.5 mg Q12HR BUZZ Administration Clopidogrel Bisulfate 75 mg 07/03/24 09:00 07/04/24 08:14 Clopidogrel Bisulfate 75 Mg Tablet PO 75 mg QAM BUZZ Administration Dextrose 12.5 gm 07/02/24 19:23 Dextrose 50% 25 Gm/50 Ml Syringe IV PUSH PRN PRN Hypoglycemia Protocol Empagliflozin 10 mg 07/03/24 09:00 07/04/24 08:14 Empagliflozin 10 Mg Tablet PO 10 mg DAILY BUZZ Administration Fluticasone/Umeclidinium/Vilanterol 1 puff 07/03/24 08:00 07/04/24 08:32 Fluticasone/Umeclidin/Vilanter 100-62.5-25 Mcg Ellipta INHALATION Not Given DAILYRT BUZZ Furosemide 40 mg 07/03/24 09:00 07/04/24 17:29 Furosemide 40 Mg Tablet PO Not Given DAILY BUZZ Furosemide 40 mg 07/04/24 17:00 07/04/24 17:42 Furosemide Inj 40 Mg/4 Ml Vial IV PUSH 40 mg BID BUZZ Administration Glucagon 1 mg 07/02/24 19:23 Glucagon For Inj 1 Mg Vial IM PRN PRN Hypoglycemia Protocol Glucose 15 gm 07/02/24 19:23 Glucose Oral Gel 15 Gm Of Glucse In 37.5 Gm Tube PO PRN PRN Hypoglycemia Protocol Heparin Sodium (Porcine) 4,000 units 07/02/24 20:12 07/05/24 01:29 Heparin Sodium 5,000 Units/Ml Vial IV PUSH 4,000 units PRN PRN Administration aPTT less than 55 seconds Heparin Sodium (Porcine) 4,000 units 07/02/24 20:12 Heparin Sodium 5,000 Units/Ml Vial IV PUSH PRN PRN aPTT 55 - 70 seconds Dextrose 1,000 mls @ 100 mls/hr 07/02/24 19:23 Dextrose 5% 1,000 Ml IVPB PRN PRN Hypoglycemia Protocol Heparin Sodium/Dextrose 25,000 units in 250 mls @ 10 mls/hr 07/02/24 20:15 07/05/24 01:29 Heparin Sodium/D5w 100 Units/Ml IV CONT 1,000 units/hr .Q24H BUZZ 10 mls/hr Titration Protocol 1,000 UNITS/HR Insulin Aspart 2 - 5 units 07/03/24 08:00 07/05/24 07:48 Insulin Aspart (*Bkc) 100 Units/Ml SUB-Q Not Given TIDWM BUZZ Protocol Insulin Aspart 1 - 2 units 07/02/24 21:00 07/04/24 20:18 Insulin Aspart (*Bkc) 100 Units/Ml SUB-Q 1 units HS BZUZ Administration Protocol Isosorbide Mononitrate 120 mg 07/03/24 09:00 07/04/24 08:14 Isosorbide Mononitrate 60 Mg Tab.Er.24h PO 120 mg DAILY BUZZ Administration Miscellaneous Information 0 each 07/02/24 00:01 Dulaglutide (Trulicity) Nonform Can Pt Bring From Home Or Hold While Here??? XX 08/01/24 00:00 [facility]IFY [facility] Morphine Sulfate 2 mg 07/02/24 19:23 Morphine Sulfate (*Crx) 2 Mg/Ml Inj IV PUSH Q4H PRN Pain Rated 7-10 Pantoprazole Sodium 40 mg 07/03/24 09:00 07/04/24 20:17 Pantoprazole 40 Mg Tablet PO 40 mg Q12HR BUZZ Administration Ranolazine 500 mg 07/04/24 21:00 07/04/24 20:17 Ranolazine 500 Mg Tab.Er.12h PO 500 mg Q12HR BUZZ Administration Rivaroxaban 2.5 mg 07/03/24 09:00 Rivaroxaban 2.5 Mg Tablet PO BID BUZZ Sacubitril/Valsartan 1 tab 07/05/24 09:00 Sacubitril/Valsartan 24-26 Mg Tablet PO Q12HR BUZZ Spironolactone 25 mg 07/05/24 09:00 Spironolactone 25 Mg Tablet PO QAM BUZZ Tamsulosin HCl 0.4 mg 07/02/24 21:00 07/04/24 20:17 Tamsulosin Hcl 0.4 Mg Capsule PO 0.4 mg HS BUZZ Administration Radiology Results: ITS Impressions Chest X-Ray 07/02/24 16:26 IMPRESSION: No acute cardiopulmonary process. Labs Labs: Laboratory Results - last 24 hr 07/04/24 07/04/24 07/04/24 07:49 13:38 16:21 WBC RBC Hgb Hct MCV MCH MCHC RDW Plt Count MPV Immature Gran % (Auto) Neut % (Auto) Lymph % (Auto) [place] % (Auto) Eos % (Auto) Baso % (Auto) Lymph # (Auto) [place] # (Auto) Eos # (Auto) Baso # (Auto) Abs Immat Gran (auto) Absolute Neuts (auto) Absolute Nucleated RBC Nucleated RBC % % Immature Plt Fraction APTT POC Capillary Glucose 215 H 272 H 244 H 07/04/24 07/05/24 07/05/24 20:17 00:17 07:34 WBC RBC Hgb Hct MCV MCH MCHC RDW Plt Count MPV Immature Gran % (Auto) Neut % (Auto) Lymph % (Auto) [place] % (Auto) Eos % (Auto) Baso % (Auto) Lymph # (Auto) [place] # (Auto) Eos # (Auto) Baso # (Auto) Abs Immat Gran (auto) Absolute Neuts (auto) Absolute Nucleated RBC Nucleated RBC % % Immature Plt Fraction APTT 30.0 POC Capillary Glucose 237 H 189 H 07/05/24 07:35 WBC 6.4 RBC 4.99 Hgb 14.9 Hct 44.5 MCV 89.2 MCH 29.9 MCHC 33.5 RDW 13.8 Plt Count 128 L MPV 10.9 H Immature Gran % (Auto) 0.3 Neut % (Auto) 72.8 Lymph % (Auto) 15.8 L [place] % (Auto) 8.8 H Eos % (Auto) 2.0 Baso % (Auto) 0.3 Lymph # (Auto) 1.01 [place] # (Auto) 0.6 Eos # (Auto) 0.1 Baso # (Auto) 0.0 Abs Immat Gran (auto) 0.02 Absolute Neuts (auto) 4.7 Absolute Nucleated RBC 0.000 Nucleated RBC % 0.0 % Immature Plt Fraction 6.3 APTT POC Capillary Glucose Quality VTE Prophylaxis VTE prophylaxis: pharmacologic ordered Hospitalist MIPS Advance Care Plan I have confirmed that the patient's Advanced Care Plan is present, code status is documented, or surrogate decision maker is listed in patient medical record.: Yes Medication Reconciliation I have utilized all available resources to obtain, update and review the patients current medications (includes all prescriptions, OTC, herbals, cannabis, and nutritional supplements).: Yes
[2024-07-05 07:53] LABS: Alanine Aminotransferase 46 U/L (6-50); Albumin Level 4.7 g/dL (3.5-5.1); Alkaline Phosphatase 76 U/L (38-126); Anion Gap 11 mmol/L (4-12); Aspartate Amino Transferase 34 U/L (17-59); Bilirubin,Total 0.8 mg/dL (0.2-1.3); Blood Urea Nitrogen 22 mg/dL (9-20); Calcium 9.2 mg/dL (8.4-10.2); Carbon Dioxide 25 mmol/L (22-30); Chloride 101 mmol/L (98-107); Estimated CRCL calculation 75 ml/min; Estimated Glomerular Filt Rate 57; Glucose 214 mg/dL (65-110); Potassium 4.3 mmol/L (3.4-5.0); Sodium 137 mmol/L (137-145)
[2024-07-05 08:12] LABS: Partial Thromboplastin Time 37.6 Seconds (22.3-36.8)
[2024-07-05] MEDS: ATORVASTATIN 40 MG TABLET 80 MG PO (08:45)
[2024-07-05] MEDS: ASPIRIN 81 MG ENTERIC TABLET PO (08:46)
[2024-07-05] MEDS: amLODIPine BESYLATE 10 MG TABLET PO (08:46)
[2024-07-05] MEDS: SACUBITRIL/VALSARTAN 24-26 MG TABLET 1 TAB PO (08:46)
[2024-07-05] MEDS: ISOSORBIDE MONONITRATE 60 MG TAB.ER.24H 120 MG PO (08:46)
[2024-07-05] MEDS: CLOPIDOGREL BISULFATE 75 MG TABLET PO (08:46)
[2024-07-05] MEDS: buPROPion HCL SR (12 HR) 150 MG TAB PO (08:47)
[2024-07-05] MEDS: RANOLAZINE 500 MG TAB.ER.12H PO (08:47)
[2024-07-05] MEDS: PANTOPRAZOLE 40 MG TABLET PO (08:47)
[2024-07-05] MEDS: SPIRONOLACTONE 25 MG TABLET PO (08:48)
[2024-07-05] MEDS: EMPAGLIFLOZIN 10 MG TABLET PO (08:48)
[2024-07-05] MEDS: carvediloL 12.5 MG TABLET PO (08:48)
[2024-07-05] MEDS: FUROSEMIDE INJ 40 MG/4 ML VIAL IV PUSH (08:49)
[2024-07-05 11:44] LABS: Glucose Point of Care 292 mg/dl (65-105)
--- NOTE | 2024-07-05 11:50 | PM.PNCARD ---
Progress Note: A&P Assessment and Plan (1) Coronary artery disease status post coronary stent insertion: Code(s): I25.10 - Atherosclerotic heart disease of [place] coronary artery without angina pectoris; Z95.5 - Presence of coronary angioplasty implant and graft Status: Acute (2) NSTEMI (non-ST elevated myocardial infarction): Code(s): I21.4 - Non-ST elevation (NSTEMI) myocardial infarction Status: Acute Plan 1. CAD, prior PCI to pLAD, mLAD and LCX 2. NSTEMI 3. HTN 4. Hyperlipidemia 5. Chronic diastolic HF LHC done 07/04 showed stable coronary artery disease compared to prior angiogram, with patent stents in the LAD and LCX. Slow flow noted on initial RCA angiogram. Significantly elevated left ventricular end-diastolic pressure of 36mmHg. Of note, patient believes he may have missed a few doses of Lasix at home as he had trouble getting refills approved through our office, which explains why LVEDP is elevated. Given significantly elevated LVEDP with slow flow noted on initial RCA angiogram, recommend optimization of HFpEF. Given IV Lasix and can now transition back to his PO Lasix 40mg once daily. Will optimize heart failure GDMT. Continue Jardiance 10mg once daily, switched Losartan to Entresto. Added Spironolactone. Regarding CAD, continue ASA, Plavix, high intensity statin. Continue antianginal therapy -- Amlodipine, Coreg, Imdur. Already on maximal dose of Amlodipine, Imdur. Do have room to increase Coreg. Was on Ranolazine in the past but was taken off of it as it was thought that it may have caused body odor. However, will retry it and see if he can tolerate it now. Continue aggressive medical therapy and risk factor modification. Okay for discharge today. Has follow up already scheduled with his primary biosecurity officer, Dr. Modi, for later this month. Recommendations and plan discussed with Hospitalist. Subjective Date/time seen: 07/05/24 11:50 Interval history: Reason for visit: NSTEMI Doing well today. No recurrent chest pain, feeling well. Review of Systems Cardiovascular: Cardiovascular: Reports as per HPI Exam Const: General: comfortable and no acute distress HENMT: Mouth: Yes moist mucous membranes Eyes: General: appearance normal, both eyes and all related structures Sclera: sclerae normal Resp: Effort & Inspection: normal respiratory effort Cardio: Rate: regular rate Rhythm: regular rhythm Skin: General skin exam: normal color Neuro: Speech: normal speech Psych: Mental Status: mental status grossly normal Affect: normal affect Objective Data Vital Signs Vital Signs: Vital Signs - 24 hr 07/04/24 12:00 07/04/24 12:00 07/04/24 12:15 Temperature Pulse Rate 75 Pulse Rate [Bilateral Radial Palpation] 75 69 Respiratory Rate 17 Blood Pressure 121/86 Pulse Oximetry 94 Oxygen Delivery Room Air 07/04/24 12:15 07/04/24 12:30 07/04/24 12:30 Temperature Pulse Rate 69 69 Pulse Rate [Bilateral Radial Palpation] 69 Respiratory Rate 15 14 Blood Pressure 105/69 114/64 Pulse Oximetry 97 97 Oxygen Delivery Room Air Room Air 07/04/24 12:45 07/04/24 12:45 07/04/24 13:00 Temperature Pulse Rate 71 Pulse Rate [Bilateral Radial Palpation] 71 69 Respiratory Rate 18 Blood Pressure 121/62 Pulse Oximetry 98 Oxygen Delivery Room Air 07/04/24 13:00 07/04/24 13:15 07/04/24 13:15 Temperature Pulse Rate 69 70 Pulse Rate [Bilateral Radial Palpation] 70 Respiratory Rate 15 16 Blood Pressure 112/65 113/64 Pulse Oximetry 96 97 Oxygen Delivery Room Air Room Air 07/04/24 13:20 07/04/24 13:58 07/04/24 14:00 Temperature 36.1 C L Pulse Rate 68 78 Pulse Rate [Bilateral Radial Palpation] 70 Respiratory Rate 20 Blood Pressure 121/62 Pulse Oximetry 100 Oxygen Delivery 07/04/24 15:00 07/04/24 15:20 07/04/24 16:00 Temperature Pulse Rate 90 78 Pulse Rate [Bilateral Radial Palpation] 70 Respiratory Rate 18 Blood Pressure 118/74 Pulse Oximetry Oxygen Delivery 07/04/24 16:00 07/04/24 18:00 07/04/24 20:00 Temperature 36.6 C 36.7 C Pulse Rate 70 70 77 Pulse Rate [Bilateral Radial Palpation] Respiratory Rate 18 18 Blood Pressure 130/71 125/88 Pulse Oximetry 96 95 Oxygen Delivery 07/04/24 20:00 07/04/24 20:00 07/04/24 20:17 Temperature Pulse Rate 77 77 Pulse Rate [Bilateral Radial Palpation] Respiratory Rate Blood Pressure Pulse Oximetry Oxygen Delivery Room Air 07/04/24 22:00 07/04/24 22:00 07/04/24 23:41 Temperature 36.5 C Pulse Rate 71 72 Pulse Rate [Bilateral Radial Palpation] Respiratory Rate 20 Blood Pressure 120/68 Pulse Oximetry 98 98 Oxygen Delivery Autopap 07/04/24 23:56 07/05/24 00:00 07/05/24 01:57 Temperature Pulse Rate 76 Pulse Rate [Bilateral Radial Palpation] Respiratory Rate Blood Pressure Pulse Oximetry Oxygen Delivery CPAP Autopap 07/05/24 02:00 07/05/24 04:00 07/05/24 04:00 Temperature 36.5 C Pulse Rate 68 73 69 Pulse Rate [Bilateral Radial Palpation] Respiratory Rate 24 H Blood Pressure 131/71 Pulse Oximetry 97 Oxygen Delivery 07/05/24 04:00 07/05/24 06:00 07/05/24 08:00 Temperature 36.6 C Pulse Rate 70 69 Pulse Rate [Bilateral Radial Palpation] Respiratory Rate 20 Blood Pressure 137/74 Pulse Oximetry 96 Oxygen Delivery CPAP 07/05/24 08:00 07/05/24 08:10 07/05/24 08:48 Temperature Pulse Rate 77 77 Pulse Rate [Bilateral Radial Palpation] Respiratory Rate Blood Pressure Pulse Oximetry 95 Oxygen Delivery Room Air 07/05/24 10:00 07/05/24 11:24 Temperature 36.6 C Pulse Rate 77 78 Pulse Rate [Bilateral Radial Palpation] Respiratory Rate 18 Blood Pressure 129/78 Pulse Oximetry 97 Oxygen Delivery Intake/Output Intake/Output: Intake & Output 07/02/24 07/03/24 07/04/24 07/05/24 23:59 23:59 23:59 23:59 Intake Total 4081.1 1820.8 718.8 Output Total 3000 2250 1400 Balance 1081.1 -429.2 -681.2 Meds/Results Medications: Active Medications Generic Name Dose Route Start Last Admin Trade Name Freq PRN Reason Stop Dose Admin Acetaminophen 1,000 mg 07/02/24 19:23 Acetaminophen 500 Mg Tablet PO Q6H PRN Mild Pain (1-3) or Fever Hydrocodone Bitart/Acetaminophen 1 tab 07/02/24 19:23 Hydrocodone/Acetaminophen (*Crx) 5-325 Mg Tablet PO Q6H PRN Pain Rated 4-6 Alprazolam 0.25 mg 07/02/24 21:00 07/04/24 21:53 Alprazolam (*Crx) 0.25 Mg Tablet PO 0.25 mg HS BUZZ Administration Amlodipine Besylate 10 mg 07/03/24 09:00 07/05/24 08:46 Amlodipine Besylate 10 Mg Tablet PO 10 mg DAILY BUZZ Administration Atorvastatin Calcium 80 mg 07/03/24 09:00 07/05/24 08:45 Atorvastatin 40 Mg Tablet PO 80 mg DAILY BUZZ Administration Bupropion HCl 150 mg 07/03/24 09:00 07/05/24 08:47 Bupropion Hcl Sr (12 Hr) 150 Mg Tab PO 150 mg Q12HR BUZZ Administration Carvedilol 12.5 mg 07/02/24 21:00 07/05/24 08:48 Carvedilol 12.5 Mg Tablet PO 12.5 mg Q12HR BUZZ Administration Clopidogrel Bisulfate 75 mg 07/03/24 09:00 07/05/24 08:46 Clopidogrel Bisulfate 75 Mg Tablet PO 75 mg QAM BUZZ Administration Dextrose 12.5 gm 07/02/24 19:23 Dextrose 50% 25 Gm/50 Ml Syringe IV PUSH PRN PRN Hypoglycemia Protocol Empagliflozin 10 mg 07/03/24 09:00 07/05/24 08:48 Empagliflozin 10 Mg Tablet PO 10 mg DAILY BUZZ Administration Fluticasone/Umeclidinium/Vilanterol 1 puff 07/03/24 08:00 07/05/24 08:10 Fluticasone/Umeclidin/Vilanter 100-62.5-25 Mcg Ellipta INHALATION Not Given DAILYRT BUZZ Furosemide 40 mg 07/03/24 09:00 07/04/24 17:29 Furosemide 40 Mg Tablet PO Not Given DAILY BUZZ Furosemide 40 mg 07/04/24 17:00 07/05/24 08:49 Furosemide Inj 40 Mg/4 Ml Vial IV PUSH 40 mg BID BUZZ Administration Glucagon 1 mg 07/02/24 19:23 Glucagon For Inj 1 Mg Vial IM PRN PRN Hypoglycemia Protocol Glucose 15 gm 07/02/24 19:23 Glucose Oral Gel 15 Gm Of Glucse In 37.5 Gm Tube PO PRN PRN Hypoglycemia Protocol Dextrose 1,000 mls @ 100 mls/hr 07/02/24 19:23 Dextrose 5% 1,000 Ml IVPB PRN PRN Hypoglycemia Protocol Insulin Aspart 2 - 5 units 07/03/24 08:00 07/05/24 07:48 Insulin Aspart (*Bkc) 100 Units/Ml SUB-Q Not Given TIDWM [facility] Protocol Insulin Aspart 1 - 2 units 07/02/24 21:00 07/04/24 20:18 Insulin Aspart (*Bkc) 100 Units/Ml SUB-Q 1 units HS BUZZ Administration Protocol Isosorbide Mononitrate 120 mg 07/03/24 09:00 07/05/24 08:46 Isosorbide Mononitrate 60 Mg Tab.Er.24h PO 120 mg DAILY BUZZ Administration Miscellaneous Information 0 each 07/02/24 00:01 Dulaglutide (Trulicity) Nonform Can Pt Bring From Home Or Hold While Here??? XX 08/01/24 00:00 [facility] Morphine Sulfate 2 mg 07/02/24 19:23 Morphine Sulfate (*Crx) 2 Mg/Ml Inj IV PUSH Q4H PRN Pain Rated 7-10 Pantoprazole Sodium 40 mg 07/03/24 09:00 07/05/24 08:47 Pantoprazole 40 Mg Tablet PO 40 mg Q12HR BUZZ Administration Ranolazine 500 mg 07/04/24 21:00 07/05/24 08:47 Ranolazine 500 Mg Tab.Er.12h PO 500 mg Q12HR BUZZ Administration Rivaroxaban 2.5 mg 07/05/24 10:20 Rivaroxaban 2.5 Mg Tablet PO BID BUZZ Sacubitril/Valsartan 1 tab 07/05/24 09:00 07/05/24 08:46 Sacubitril/Valsartan 24-26 Mg Tablet PO 1 tab Q12HR BUZZ Administration Spironolactone 25 mg 07/05/24 09:00 07/05/24 08:48 Spironolactone 25 Mg Tablet PO 25 mg QAM [facility] Administration Tamsulosin HCl 0.4 mg 07/02/24 21:00 07/04/24 20:17 Tamsulosin Hcl 0.4 Mg Capsule PO 0.4 mg HS [facility] Administration Radiology Results: ITS Impressions Chest X-Ray 07/02/24 16:26 IMPRESSION: No acute cardiopulmonary process. Labs Labs: Laboratory Results - last 24 hr 07/04/24 07/04/24 07/04/24 13:38 16:21 20:17 WBC RBC Hgb Hct MCV MCH MCHC RDW Plt Count MPV Immature Gran % (Auto) Neut % (Auto) Lymph % (Auto) [place] % (Auto) Eos % (Auto) Baso % (Auto) Lymph # (Auto) [place] # (Auto) Eos # (Auto) Baso # (Auto) Abs Immat Gran (auto) Absolute Neuts (auto) Absolute Nucleated RBC Nucleated RBC % % Immature Plt Fraction APTT Sodium Potassium Chloride Carbon Dioxide Anion Gap BUN Creatinine Estim Creat Clear Calc Estimated GFR Glucose POC Capillary Glucose 272 H 244 H 237 H Calcium Magnesium Total Bilirubin AST ALT Alkaline Phosphatase Total Protein Albumin 07/05/24 07/05/24 07/05/24 00:17 07:34 07:35 WBC 6.4 RBC 4.99 Hgb 14.9 Hct 44.5 MCV 89.2 MCH 29.9 MCHC 33.5 RDW 13.8 Plt Count 128 L MPV 10.9 H Immature Gran % (Auto) 0.3 Neut % (Auto) 72.8 Lymph % (Auto) 15.8 L [place] % (Auto) 8.8 H Eos % (Auto) 2.0 Baso % (Auto) 0.3 Lymph # (Auto) 1.01 [place] # (Auto) 0.6 Eos # (Auto) 0.1 Baso # (Auto) 0.0 Abs Immat Gran (auto) 0.02 Absolute Neuts (auto) 4.7 Absolute Nucleated RBC 0.000 Nucleated RBC % 0.0 % Immature Plt Fraction 6.3 APTT 30.0 37.6 H Sodium 137 Potassium 4.3 Chloride 101 Carbon Dioxide 25 Anion Gap 11 BUN 22 H Creatinine 1.26 Estim Creat Clear Calc 75 Estimated GFR 57 L Glucose 214 H POC Capillary Glucose 189 H Calcium 9.2 Magnesium 2.0 Total Bilirubin 0.8 AST 34 ALT 46 Alkaline Phosphatase 76 Total Protein 8.0 Albumin 4.7 07/05/24 11:19 WBC RBC Hgb Hct MCV MCH MCHC RDW Plt Count MPV Immature Gran % (Auto) Neut % (Auto) Lymph % (Auto) [place] % (Auto) Eos % (Auto) Baso % (Auto) Lymph # (Auto) [place] # (Auto) Eos # (Auto) Baso # (Auto) Abs Immat Gran (auto) Absolute Neuts (auto) Absolute Nucleated RBC Nucleated RBC % % Immature Plt Fraction APTT Sodium Potassium Chloride Carbon Dioxide Anion Gap BUN Creatinine Estim Creat Clear Calc Estimated GFR Glucose POC Capillary Glucose 292 H Calcium Magnesium Total Bilirubin AST ALT Alkaline Phosphatase Total Protein Albumin
[2024-07-05] MEDS: INSULIN ASPART (*BKC) 100 UNITS/ML SUB-Q (11:56)
--- NOTE | 2024-07-05 14:47 | PM.DS ---
DS: Admitting Diagnosis Discharge Date 07/05/2024 Admitting Diagnosis Chest pain DS: Discharge Diagnosis Discharge Diagnosis (1) Coronary artery disease status post coronary stent insertion: Code(s): I25.10 - Atherosclerotic heart disease of [place] coronary artery without angina pectoris; Z95.5 - Presence of coronary angioplasty implant and graft Status: Acute Assessment and Plan: 06/17/24 PCI to mid LAD for 60% stenosis. Status post heparin infusion, Continue aspirin, Coreg and Lipitor Under Cardiac cath on 07/04 cardiology following (2) Hypertension: Code(s): I10 - Essential (primary) hypertension Status: Chronic Assessment and Plan: Continue home medications Monitor and trend VS and labs (3) Chronic heart failure with preserved ejection fraction (HFpEF): Code(s): I50.32 - Chronic diastolic (congestive) heart failure Status: Chronic Assessment and Plan: Last ECHO 06/15/24 - shows Normal LVSF at 60-65% EF. preserved ejection fraction noted. Continue diuretics. No new EKG findings of decompensating heart failure and pt appears euvolemic. Routine BNP ordered as pt does not appear decompensated. Telemetry Daily weight (4) HLD (hyperlipidemia): Qualifiers: Hyperlipidemia type: unspecified Qualified Code(s): E78.5 - Hyperlipidemia, unspecified Code(s): E78.5 - Hyperlipidemia, unspecified Status: Chronic Assessment and Plan: Heart healthy diet Recommend lifestyle changes (5) Chronic anticoagulation: Code(s): Z79.01 - MCC (current) use of anticoagulants Status: Chronic Assessment and Plan: Plavix for recent PCI 06/17/24 - to continue for a total of 6 months. Continue Xarelto 2.5 mg p.o. b.i.d. (6) Diabetes mellitus: Qualifiers: Diabetes mellitus type: type 2 Diabetes mellitus rn long term care insulin use: with rn long term care use Diabetes mellitus complication status: with hyperglycemia Qualified Code(s): E11.65 - Type 2 diabetes mellitus with hyperglycemia; Z79.4 - exterminator (current) use of insulin Code(s): E11.9 - Type 2 diabetes mellitus without complications Status: Chronic Assessment and Plan: SSI with accucheks, adjust with clinical course A1c 6.9 monitor (7) TIA (transient ischemic attack): Code(s): G45.9 - Transient cerebral ischemic attack, unspecified Status: Resolved Assessment and Plan: History of. Continue Statin and plavix (8) COPD (chronic obstructive pulmonary disease): Qualifiers: COPD type: unspecified COPD Qualified Code(s): J44.9 - Chronic obstructive pulmonary disease, unspecified Code(s): J44.9 - Chronic obstructive pulmonary disease, unspecified Status: Chronic Assessment and Plan: Continue Breztri (9) Obstructive sleep apnea on CPAP: Code(s): G47.33 - Obstructive sleep apnea (adult) (pediatric); Z99.89 - Dependence on other enabling machines and devices Status: Chronic Assessment and Plan: CPAP at HS (10) Obesity: Code(s): E66.9 - Obesity, unspecified Status: Chronic Assessment and Plan: Recommend lifestyle changes to lower further cardiovascular risk. Plan DVT prophylaxis on Heparin in fusion DS: Summary Hospital Course Hospital Course: 64 year old male pt with PMH of it is coronary artery disease status post PCI now x3, TIA, hypertension, peripheral neuropathy, type 2 diabetes mellitus, DVT, peptic ulcer disease, hyperlipidemia, sleep apnea, GERD, COPD, heart failure, depression who was a previous smoker that stopped in 2023 after a 30 pack-year history who comes to the emergency room with complaints of having chest pain. Patient had PCI to the mid LAD for 60% stenosis on June 17, 2024 here at our facility. He was discharged home on initial triple therapy for 1 week with Xarelto, Plavix and aspirin and then was left to take Xarelto, Plavix, carvedilol, losartan, amlodipine, Imdur and statin that of which he states he has attempted to be compliant with but says he was unable to take his carvedilol or Lasix as his distribution operations supervisor, Dr. Modi initially would not fill it, and just today he was able to have a refill of those medications. Patient states that today he was in the shower and when dry it off he noticed pain to both sides of his jaws that radiated down the left arm and over to the left side of his chest. He had associated symptoms of a headache and shortness of breath. After the pain did not subside on its own he decided to call EMS and was brought to the emergency room. Prior to coming to the emergency room he did take an oral dose of nitro with some relief but the pain returned. He also notes that he has had 2 days of diarrhea and notes that approximately 1 week ago he dropped a rolling pin on the top of his right foot and he has bruising and pain there that had no broken bones upon visit to urgent care. Patient denies any other acute complaints at this time and after nitro paste placed on him he is having improvement in his overall pain in his chest. Patient was evaluated in the ER where workup showed no changes on EKG that showed normal sinus rhythm 82 beats per minute with a right bundle-branch block. It was similar to that of his most recent on June 17. Chest x-ray was negative, initial troponin was normal at less than 0.012, coags were normal, CBC was unremarkable and his metabolic panel was remarkable only for hyperglycemia with a glucose of 300. Patient states this is out of character for him to have a glucose that high as he states it runs of approximately in the 150s to 160s. As patient had some improvement in his overall pain ER physician discussed with distribution operations supervisor Dr. Sanchez who advised to admit and do serial troponins and continue with nitropaste and they will consult. Assumed care on 07/05/2024(on the day of discharge) Discussed with cardiology who agrees with discharging the patient. Patient underwent cardiac catheterization yesterday. As per cardiology: LHC done 07/04 showed stable coronary artery disease compared to prior angiogram, with patent stents in the LAD and LCX. Slow flow noted on initial RCA angiogram. Significantly elevated left ventricular end-diastolic pressure of 36mmHg.Of note, patient believes he may have missed a few doses of Lasix at home as he had trouble getting refills approved through our office, which explains why LVEDP is elevated. Given significantly elevated LVEDP with slow flow noted on initial RCA angiogram, recommend optimization of HFpEF. Given IV Lasix and can now transition back to his PO Lasix 40mg once daily. Will optimize heart failure GDMT. Continue Jardiance 10mg once daily, switched Losartan to Entresto. Added Spironolactone. Regarding CAD, continue ASA, Plavix, high intensity statin. Continue antianginal therapy -- Amlodipine, Coreg, Imdur. Already on maximal dose of Amlodipine, Imdur. Do have room to increase Coreg. Was on Ranolazine in the past but was taken off of it as it was thought that it may have caused body odor. However, will retry it and see if he can tolerate it now. Continue aggressive medical therapy and risk factor modification. During my evaluation patient was currently doing well. Patient denies any chest pain, shortness of breath the or dizziness. Patient will be discharged. Status at Discharge Cognitive/behavioral status at discharge: Stable Time Spent with Patient Time attestation: Total time spent providing and/or coordinating discharge services: 45 minutes Exam Const: Other: Morbidly obese male patient sitting up in stretcher at this time in no acute distress. Neck: Other: Full active range of motion in all directions without rigidity. Chest: Other: Non-tender to palpation Cardio: Other: Grade 2 systolic murmur GI: Other: Rotund abdomen DS: Data Data Completed and Pending Labs on day of discharge: Labs from last 24 hours 07/05/24 07/05/24 07/05/24 11:19 07:35 07:34 WBC 6.4 RBC 4.99 Hgb 14.9 Hct 44.5 MCV 89.2 MCH 29.9 MCHC 33.5 RDW 13.8 Plt Count 128 L MPV 10.9 H Immature Gran % (Auto) 0.3 Neut % (Auto) 72.8 Lymph % (Auto) 15.8 L [place] % (Auto) 8.8 H Eos % (Auto) 2.0 Baso % (Auto) 0.3 Lymph # (Auto) 1.01 [place] # (Auto) 0.6 Eos # (Auto) 0.1 Baso # (Auto) 0.0 Abs Immat Gran (auto) 0.02 Absolute Neuts (auto) 4.7 Absolute Nucleated RBC 0.000 Nucleated RBC % 0.0 % Immature Plt Fraction 6.3 APTT 37.6 H Sodium 137 Potassium 4.3 Chloride 101 Carbon Dioxide 25 Anion Gap 11 BUN 22 H Creatinine 1.26 Estim Creat Clear Calc 75 Estimated GFR 57 L Glucose 214 H POC Capillary Glucose 292 H 189 H Calcium 9.2 Magnesium 2.0 Total Bilirubin 0.8 AST 34 ALT 46 Alkaline Phosphatase 76 Total Protein 8.0 Albumin 4.7 07/05/24 07/04/24 07/04/24 00:17 20:17 16:21 WBC RBC Hgb Hct MCV MCH MCHC RDW Plt Count MPV Immature Gran % (Auto) Neut % (Auto) Lymph % (Auto) [place] % (Auto) Eos % (Auto) Baso % (Auto) Lymph # (Auto) [place] # (Auto) Eos # (Auto) Baso # (Auto) Abs Immat Gran (auto) Absolute Neuts (auto) Absolute Nucleated RBC Nucleated RBC % % Immature Plt Fraction APTT 30.0 Sodium Potassium Chloride Carbon Dioxide Anion Gap BUN Creatinine Estim Creat Clear Calc Estimated GFR Glucose POC Capillary Glucose 237 H 244 H Calcium Magnesium Total Bilirubin AST ALT Alkaline Phosphatase Total Protein Albumin Imaging Radiologist's impression: ITS Impressions Chest X-Ray 07/02/24 16:26 IMPRESSION: No acute cardiopulmonary process. Discharge Plan Discharge Attending physician on discharge: Anthony Boswell Consulting providers: Nathan Sanchez Discharging Clinician: Anthony Boswell Anticipated Discharge Date/Time: 07/05/24 14:52 Patient Disposition: Home Activity: as tolerated Diet: heart healthy Discharge Instructions: Please take your medications regularly without missing any doses. Check blood pressure 1 to 2 times a day. Record and bring into your doctor for review. Call your doctor if your blood pressure is greater than 180/110 or less than 90/45. Walk with cane or other assist device. Take precautions to avoid falls. Rise slowly from a lying or sitting position. Pause before standing or walking. Contact your doctor or call 911 and come to the Emergency Room if you have any type of trauma, lightheadedness with standing or other worrisome symptoms. Avoid NSAIDs (ibuprofen, naproxen, Aleve). Tylenol is safe to take. Follow-up with your primary care provider in 1-2 weeks. Please call for appointment. Follow-up with Cardiology in 2-4 weeks. Please call for an appointment. Thank you for using [facility] for your health care needs. Patient Instructions: Antibiotic Form, Rivaroxaban (By mouth), Chest Pain (GEN), Safe Use of Anticoagulants (DC), High Troponin Levels (GEN) Patient Language: [place] Stand Alone Forms: General Discharge Information Follow-up/Referrals: Fernando Modi MD [Physician] - Angelina,JOVITA Junior [Primary Care Provider] - Discharge Medications: New Entresto 24-26 mg Tablet 1 tab PO Q12HR Qty: 30 0RF spironolactone 25 mg Tablet 25 mg PO QAM Qty: 30 0RF ranolazine 500 mg tablet extended release 12 hr 500 mg PO Q12H Qty: 30 0RF Continued Breztri Aerosphere 160-9-4.8 mcg/actuation HFA aerosol inhaler 2 inh INHALATION BID isosorbide mononitrate 60 mg tablet extended release 24 hr 120 mg PO DAILY aspirin [Children's Aspirin] 81 mg tablet,chewable 81 mg PO DAILY carvedilol [Coreg] 12.5 mg Tablet 12.5 mg PO Q12HR Qty: 60 0RF nitroglycerin [Nitrostat] 0.4 mg Tablet, Sublingual 0.4 mg sublingual Q5MIN PRN (Reason: Chest Pain) Qty: 26 0RF omeprazole 40 mg capsule,delayed release(DR/EC) 40 mg PO DAILY Qty: 30 0RF tamsulosin 0.4 mg capsule 0.4 mg PO HS Qty: 30 0RF Jardiance 10 mg tablet 10 mg PO DAILY Qty: 30 0RF atorvastatin 80 mg tablet 80 mg PO DAILY Trulicity 3 mg/0.5 mL pen injector 3 mg SUBCUT WEEKLY Patient Comments: TAKES ON Tuesdays furosemide 40 mg tablet 40 mg PO DAILY clopidogrel 75 mg Tablet 75 mg PO QAM Qty: 30 0RF rivaroxaban [Xarelto] 2.5 mg tablet 2.5 mg PO BID Qty: 60 0RF bupropion HCl [Wellbutrin SR] 150 mg tablet sustained-release 12 hr 150 mg PO BID amlodipine 10 mg tablet 10 mg PO DAILY metformin 1,000 mg tablet 1,000 mg PO BID alprazolam 0.25 mg tablet 0.25 mg PO HS Rx Instructions: at bedtime Discontinued losartan 100 mg tablet 100 mg PO DAILY Date of admission: 07/03/24 14:20 Primary Care Provider: Angelina,Sandi Admitting Provider: Nicholas Reyes Attending physician on admission: Nicholas Reyes Condition: Stable
== END 2024-07-05 16:02 | disposition home or self-care (01) | DRG 287 ==
LOC: ANHED 17:23 → ANHIMU 17:55
PROVIDERS: Emergency Medicine; Internal Medicine; Internal Medicine Interventional Cardiology; Nurse Practitioner Adult Health; Admitting Provider Internal Medicine; Emergency Provider Emergency Medicine; PCP Registered Nurse; Visit Provider General Practice
PROC: 4A023N7 Measurement of Cardiac Sampling and Pressure, Left Heart, Percutaneous Approach (ICD-10-PCS; CPT 93452; principal; 2024-07-04 09:30)
DX: I25.10 Atherosclerotic heart disease of native coronary artery without angina pectoris (principal); I50.32 Chronic diastolic (congestive) heart failure; I69.354 Hemiplegia and hemiparesis following cerebral infarction affecting left non-dominant side; I11.0 Hypertensive heart disease with heart failure; E78.5 Hyperlipidemia, unspecified; E11.65 Type 2 diabetes mellitus with hyperglycemia; J44.9 Chronic obstructive pulmonary disease, unspecified; G47.33 Obstructive sleep apnea (adult) (pediatric); E66.9 Obesity, unspecified; K21.9 Gastro-esophageal reflux disease without esophagitis; E11.42 Type 2 diabetes mellitus with diabetic polyneuropathy; I73.9 Peripheral vascular disease, unspecified; L40.9 Psoriasis, unspecified; Z95.5 Presence of coronary angioplasty implant and graft; Z79.4 Long term (current) use of insulin; Z79.01 Long term (current) use of anticoagulants; Z86.718 Personal history of other venous thrombosis and embolism; Z87.11 Personal history of peptic ulcer disease; Z87.891 Personal history of nicotine dependence; Z90.49 Acquired absence of other specified parts of digestive tract; Z86.16 Personal history of COVID-19
CPT/HCPCS: 36415; 71046; 80053; 82948; 83036; 83690; 83735; 83880; 84484; 85025; 85055; 85610; 85730; 93005; 93458; 96374; 96375; 99285; A9270; C1769; C1887; C1894; G0378; J1644; J1815; J1938; J2003; J2250; J2305; J3010; J7040

== ENCOUNTER 2024-07-12 13:45 | Inpatient (IN) | payer MEDICARE, MEDICAID, SELFPAY ==
[2024-07-12] VITALS (10 sets, daily range): BP systolic 89–109; BP diastolic 51–70; PULSE 72–87; RESP 16–26; TEMP 36.3–36.8; O2SAT 94–100; BMI 40.4
--- NOTE | ~2024-07-12 | XR_ITS ---
EXAMINATION: XR chest 2V Exam Date/Time: 07/12/2024 14:40 CDT HISTORY: chest pain hx of 3 stents and coronary artery disease Comparison: 07/02/2024. RESULT: Lines, tubes, and devices: Loop recorder. Lungs and pleura: Low volumes with crowding. Streaky bibasilar subsegmental opacities. Trace bilater al costophrenic angle blunting. Cardiomediastinal silhouette: Stable. Other: No acute osseous or upper abdominal finding. IMPRESSION: Subsegmental bibasilar atelectasis/consolidation. Possible trace bilateral effusions. Reviewed, dictated and finalized at location K. IMPRESSION: Subsegmental bibasilar atelectasis/consolidation. Possible trace bilateral effu sions.
--- NOTE | ~2024-07-12 | XR_ITS ---
Portable chest x-ray Comparison: 07/12/2024 Clinical History: Pleural effusion Findings: Lungs are clear, without focal consolidation or pleural effusion. Cardiomediastinal silho uette is stable, with a loop recorder. Bones and soft tissues are unremarkable. Impression: Clear lungs. Reviewed, dictated and finalized at location . Impression: Clear lungs.
--- NOTE | 2024-07-12 13:49 | ECG_ITS ---
Test Date: 2024-07-12 14:01:56 Measurements Intervals [place] Rate: 86 P: 35 CT: 178 QRS: 24 QRSD: 159 T: 34 QT: 404 QTc: 486 Interpretive Statements SINUS RHYTHM RIGHT BUNDLE BRANCH BLOCK [120+ ms QRS DURATION, UPRIGHT V1, 40+ ms S IN I/aVL/V4/V5/V6] Compared to ECG 07/02/2024 20:02:01 No significant changes Electronically Signed On 07-12-2024 15:08:19 CDT by Julio Richardson M.D.
--- NOTE | 2024-07-12 14:02 | ED.GENADULT ---
HPI - General Adult General Chief complaint: Overdose <Carolina Obrien PA-C - Last Filed: 07/12/24 17:19> Stated complaint: accidental med overdose <Carolina Obrien PA-C - Last Filed: 07/12/24 17:19> Time Seen by Provider: 07/12/24 16:39 <Carolina Obrien PA-C - Last Filed: 07/12/24 17:19> Focused HPI: 64 y/o M presents to the ED for accidental medication overdose. Pt states he took 7 24-26mg Entresto, 2-3 25mg spironolactone and 2-3 500 mg of Ranolazine at 1230. states he was sorting through his medications and accidentally took too many. He contacted his sporting goods salesperson and was advised to come to the ED. Pt states he became dizzy, lightheaded and started having a headache around [address] to the ED developed left sided chest pain. GENERAL: Well-appearing, well-nourished, and in no acute distress. HEAD: Normocephalic, atraumatic. CHEST: Clear to auscultation. No respiratory distress. HEART: Regular rate and rhythm. NEURO: Alert and oriented x3. Patient screened in triage and initial orders placed. Additional care and disposition to be based upon diagnostic testing and treatment. <Carolina Obrien PA-C - Last Filed: 07/12/24 17:19> History of Present Illness HPI narrative: Patient is a 64-year-old gentleman presents emergency department with chief complaint of accidental overdose. The patient reports he took 7 Entresto 2 spironolactone and 2 ranolazine. The patient reports that he feels lightheaded patient also reports he has had some discomfort in his chest afterwards <Maynor Larson MD - Last Filed: 07/12/24 17:32> Related Data Home medications: Home Medications Medication Instructions Recorded Confirmed Last Taken Type amlodipine 10 mg tablet 10 mg PO DAILY 01/24/19 07/02/24 07/02/24 History bupropion HCl 150 mg tablet,12 hr 150 mg PO BID 01/24/19 07/02/24 07/02/24 History sustained-release (Wellbutrin SR) metformin 1,000 mg tablet 1,000 mg PO BID 01/24/19 07/02/24 07/02/24 History isosorbide mononitrate 60 mg 120 mg PO DAILY 01/09/20 07/02/24 07/02/24 History tablet,extended release 24 hr alprazolam 0.25 mg tablet 0.25 mg PO HS 08/21/21 07/02/24 07/01/24 History aspirin 81 mg chewable tablet 81 mg PO DAILY 09/29/21 07/02/24 06/13/24 History (Children's Aspirin) atorvastatin 80 mg tablet 80 mg PO DAILY 06/13/24 07/02/24 07/01/24 History dulaglutide 3 mg/0.5 mL 3 mg subcut WEEKLY 06/13/24 07/02/24 06/28/24 History subcutaneous pen injector (Trulicity) furosemide 40 mg tablet 40 mg PO DAILY 06/13/24 07/02/24 07/02/24 History budesonide 160 mcg-glycopyr 9 2 inh inhalation BID 06/28/24 07/02/24 07/01/24 History mcg-formot 4.8 mcg/actuation HFA inhaler (Breztri Clodicophere) <Carolina Obrien PA-C - Last Filed: 07/12/24 17:19> Allergies/adverse reactions: Allergies Allergy/AdvReac Type Severity Reaction Status Date / Time No Known Allergies Allergy Unknown Verified 07/02/24 15:25 <Carolina Obrien PA-C - Last Filed: 07/12/24 17:19> Review of Systems Review of Systems: A 10 system review of systems was completed on the patient and is negative except for what is stated in the HPI. Nursing and ancillary documentation was reviewed. <Maynor Larson MD - Last Filed: 07/12/24 17:32> [facility] Past Medical History Medical History: Medical History Hypertension Coronary artery disease Stent to the distal circumflex and Left anterior descending in 2014. Left anterior descending stent in 04/2015. COVID Transient ischemic attack Diabetic peripheral neuropathy Peripheral vascular disease Deep venous thrombosis Gastric ulcer Obstructive sleep apnea on CPAP Hyperlipidemia Type 2 diabetes mellitus Gastroesophageal reflux disease Chronic obstructive pulmonary disease Cerebrovascular accident Mild left-sided weakness. Congestive heart failure BMI greater than 40 Chronic anticoagulation Hydronephrosis Psoriasis Depression Fracture of fifth toe, right, closed Kidney stones Pneumonia Myocardial infarction Seasonal allergies <Carolina Obrien PA-C - Last Filed: 07/12/24 17:19> Surgical History Surgical History: Surgical History History of coronary artery stent placement History of tonsillectomy History of cholecystectomy History of lithotripsy History of rectal polypectomy History of cardiac catheterization 2 stents <SURESH Bueno Last Filed: 07/12/24 17:19> Family History Family History: Family History Mother Diabetes mellitus Arthritis Kidney stones Coronary artery disease Father Acute myocardial infarction Heart disease Kidney stones Hypertension Coronary artery disease Sibling Coronary artery disease Heart disease Hx of CABG <Carolina Obrien PA-C - Last Filed: 07/12/24 17:19> Social History Social History: Social History Social History: Surrogate decision maker: Renacornell Dodd, friend. Code status: Full code. Smoking packs per day: 1 Smoking cigarettes per day: 20.0 Years smoked: 45 Smoking pack-years: 45.00 Smoking status: Former smoker Tobacco type: cigarettes Second hand tobacco smoke exposure: No Smoking end date: 02/17/24 Alcohol intake: former Drinks per week: 0 Substance use: former Substance use type: does not use Last use: 10/01/2023 Do You Feel Safe in your Home?: Yes Lack of Transportation: No Lack of Food: Never True Current Housing: I Have Housing Concerned About Future Housing: No Difficulty Paying Gas/Electric Bills: No Difficulty Paying for Meds: No Currently Unemployed: No Education: Associate Degree Difficulty w/ Childcare or Family Care: No Living arrangements: with roommate(s) Additional living arrangements comments: The patient lives in [place] with a roommate. He has no children. Occupation/Education: other Additional occupation/education comments: Disabled. Spiritual care concerns: No <Carolina Obrien PA-C - Last Filed: 07/12/24 17:19> Exam Narrative: GENERAL: Well-appearing, well-nourished, and in no acute distress. HEAD: Normocephalic, atraumatic. EYES: PERRLA and EOMI. ENT: Nares clear, no rhinorrhea or epistaxis. Mucous membranes moist. NECK: Supple. CHEST: Clear to auscultation. No respiratory distress. HEART: Regular rate and rhythm. No murmur heard. Normal peripheral pulses. ABDOMEN: Soft, nontender, nondistended, normal active bowel sounds. EXTREMITIES: Normal range of motion. No edema. SKIN: Warm, dry, no rash. NEURO: No focal deficits. Alert and oriented x3. PSYCH: Normal mood and affect. <Maynor Larson MD - Last Filed: 07/12/24 17:32> Course Vital Signs Vital signs: Vital Signs Temperature 36.8 C 07/12/24 14:22 Pulse Rate 87 07/12/24 14:22 Respiratory Rate 18 07/12/24 14:22 Blood Pressure 109/67 07/12/24 14:22 Pulse Oximetry 94 07/12/24 14:22 Temperature 36.8 C 07/12/24 14:22 Pulse Rate 81 07/12/24 15:13 Respiratory Rate 26 H 07/12/24 15:13 Blood Pressure 102/70 07/12/24 15:13 Pulse Oximetry 95 07/12/24 15:13 Oxygen Delivery Room Air 07/12/24 15:13 <Carolina Obrien PA-C - Last Filed: 07/12/24 17:19> Vital Signs Temperature 36.8 C 07/12/24 14:22 Pulse Rate 87 07/12/24 14:22 Respiratory Rate 18 07/12/24 14:22 Blood Pressure 109/67 07/12/24 14:22 Pulse Oximetry 94 07/12/24 14:22 Temperature 36.8 C 07/12/24 14:22 Pulse Rate 81 07/12/24 15:13 Respiratory Rate 26 H 07/12/24 15:13 Blood Pressure 102/70 07/12/24 15:13 Pulse Oximetry 95 07/12/24 15:13 Oxygen Delivery Room Air 07/12/24 15:13 <Maynor Larson MD - Last Filed: 07/12/24 17:32> Medical Decision Making MDM Narrative Medical decision making narrative: Differential diagnosis includes accidental overdose, Patient is currently hemodynamically stable patient's blood pressure is running on the lower side with a pressure currently the 85 systolic. Patient is awake alert in no acute distress. Patient will be gently hydrated case was discussed with the hospital as the patient will be need to be monitored for 7 to 10 hours <Maynor Larson MD - Last Filed: 07/12/24 17:32> Vital Signs Vital Signs: Vital Signs Temperature 36.8 C 07/12/24 14:22 Pulse Rate 87 07/12/24 14:22 Respiratory Rate 18 07/12/24 14:22 Blood Pressure 109/67 07/12/24 14:22 Pulse Oximetry 94 07/12/24 14:22 Temperature 36.8 C 07/12/24 14:22 Pulse Rate 81 07/12/24 15:13 Respiratory Rate 26 H 07/12/24 15:13 Blood Pressure 102/70 07/12/24 15:13 Pulse Oximetry 95 07/12/24 15:13 Oxygen Delivery Room Air 07/12/24 15:13 <Carolina Obrien PA-C - Last Filed: 07/12/24 17:19> Vital Signs Temperature 36.8 C 07/12/24 14:22 Pulse Rate 87 07/12/24 14:22 Respiratory Rate 18 07/12/24 14:22 Blood Pressure 109/67 07/12/24 14:22 Pulse Oximetry 94 07/12/24 14:22 Temperature 36.8 C 07/12/24 14:22 Pulse Rate 81 07/12/24 15:13 Respiratory Rate 26 H 07/12/24 15:13 Blood Pressure 102/70 07/12/24 15:13 Pulse Oximetry 95 07/12/24 15:13 Oxygen Delivery Room Air 07/12/24 15:13 <Maynor Larson MD - Last Filed: 07/12/24 17:32> Lab Data Result diagrams: 07/12/24 15:09 07/12/24 15:08 <Carolina Obrien PA-C - Last Filed: 07/12/24 17:19> Labs: Lab Results 07/12/24 07/12/24 07/12/24 Range/Units 15:08 15:08 15:08 WBC (4.5-10.0) K/mm3 RBC (4.6-6.20) M/mm3 Hgb (14.0-18.0) g/dL Hct (42.0-52.0) % MCV (80-100) fl MCH (26-34) pg MCHC (32-36) g/dl RDW (11.5-14.5) % Plt Count (150-375) k/mm3 MPV (7.4-10.4) fl Immature Gran % (Auto) (0-0.5) % Neut % (Auto) (45.5-73.1) % Lymph % (Auto) (18.3-44.2) % Crockett % (Auto) (2.6-8.5) % Eos % (Auto) (0-4.4) % Baso % (Auto) (0.2-1.2) % Lymph # (Auto) (0.9-3.2) K/mm3 Crockett # (Auto) (0.1-0.6) K/mm3 Eos # (Auto) (0-0.3) K/mm3 Baso # (Auto) (0.0-0.1) K/mm3 Abs Immat Gran (auto) (0.00-0.031) K/mm3 Absolute Neuts (auto) (1.3-6.7) K/mm3 Absolute Nucleated RBC (0.0-0.012) K/mm3 Nucleated RBC % (0.0-0.2) % PT 13.9 (11.1-14.7) Seconds INR 1.0 APTT 29.4 (22.3-36.8) Seconds Sodium 137 (137-145) mmol/L Potassium 4.1 Cancelled (3.4-5.0) mmol/L Chloride 102 (98-107) mmol/L Carbon Dioxide 21 L (22-30) mmol/L Anion Gap 14 H (4-12) mmol/L BUN 24 H (9-20) mg/dL Creatinine 1.51 H (0.7-1.3) mg/dL Estim Creat Clear Calc 59 ml/min Estimated GFR 47 L (59 - ) Glucose 185 H (65-110) mg/dL Calcium 9.1 (8.4-10.2) mg/dL Magnesium 1.9 Cancelled (1.6-2.3) mg/dL Total Bilirubin 0.6 (0.2-1.3) mg/dL AST 40 (17-59) U/L ALT 53 H (6-50) U/L Alkaline Phosphatase 71 (38-126) U/L Troponin I < 0.012 (0.000-0.034) ng/mL Total Protein 8.0 (6.3-8.2) g/dL Albumin 4.7 (3.5-5.1) g/dL Lipase 161 (23-300) U/L Salicylates (2-20) mg/dL Acetaminophen (10-30) ug/mL 07/12/24 07/12/24 Range/Units 15:09 16:49 WBC 8.2 (4.5-10.0) K/mm3 RBC 4.90 (4.6-6.20) M/mm3 Hgb 14.6 (14.0-18.0) g/dL Hct 43.9 (42.0-52.0) % MCV 89.6 (80-100) fl MCH 29.8 (26-34) pg MCHC 33.3 (32-36) g/dl RDW 13.7 (11.5-14.5) % Plt Count 142 L (150-375) k/mm3 MPV 11.3 H (7.4-10.4) fl Immature Gran % (Auto) 0.2 (0-0.5) % Neut % (Auto) 74.2 H (45.5-73.1) % Lymph % (Auto) 14.7 L (18.3-44.2) % Crockett % (Auto) 8.9 H (2.6-8.5) % Eos % (Auto) 1.8 (0-4.4) % Baso % (Auto) 0.2 (0.2-1.2) % Lymph # (Auto) 1.20 (0.9-3.2) K/mm3 Crockett # (Auto) 0.7 H (0.1-0.6) K/mm3 Eos # (Auto) 0.2 (0-0.3) K/mm3 Baso # (Auto) 0.0 (0.0-0.1) K/mm3 Abs Immat Gran (auto) 0.02 (0.00-0.031) K/mm3 Absolute Neuts (auto) 6.1 (1.3-6.7) K/mm3 Absolute Nucleated RBC 0.000 (0.0-0.012) K/mm3 Nucleated RBC % 0.0 (0.0-0.2) % PT (11.1-14.7) Seconds INR APTT (22.3-36.8) Seconds Sodium (137-145) mmol/L Potassium (3.4-5.0) mmol/L Chloride (98-107) mmol/L Carbon Dioxide (22-30) mmol/L Anion Gap (4-12) mmol/L BUN (9-20) mg/dL Creatinine (0.7-1.3) mg/dL Estim Creat Clear Calc ml/min Estimated GFR (59 - ) Glucose (65-110) mg/dL Calcium (8.4-10.2) mg/dL Magnesium (1.6-2.3) mg/dL Total Bilirubin (0.2-1.3) mg/dL AST (17-59) U/L ALT (6-50) U/L Alkaline Phosphatase (38-126) U/L Troponin I < 0.012 (0.000-0.034) ng/mL Total Protein (6.3-8.2) g/dL Albumin (3.5-5.1) g/dL Lipase (23-300) U/L Salicylates < 1.0 L (2-20) mg/dL Acetaminophen < 10 L (10-30) ug/mL <Carolina Obrien PA-C - Last Filed: 07/12/24 17:19> Lab Results 07/12/24 07/12/24 07/12/24 Range/Units 15:08 15:08 15:08 WBC (4.5-10.0) K/mm3 RBC (4.6-6.20) M/mm3 Hgb (14.0-18.0) g/dL Hct (42.0-52.0) % MCV (80-100) fl MCH (26-34) pg MCHC (32-36) g/dl RDW (11.5-14.5) % Plt Count (150-375) k/mm3 MPV (7.4-10.4) fl Immature Gran % (Auto) (0-0.5) % Neut % (Auto) (45.5-73.1) % Lymph % (Auto) (18.3-44.2) % Crockett % (Auto) (2.6-8.5) % Eos % (Auto) (0-4.4) % Baso % (Auto) (0.2-1.2) % Lymph # (Auto) (0.9-3.2) K/mm3 Crockett # (Auto) (0.1-0.6) K/mm3 Eos # (Auto) (0-0.3) K/mm3 Baso # (Auto) (0.0-0.1) K/mm3 Abs Immat Gran (auto) (0.00-0.031) K/mm3 Absolute Neuts (auto) (1.3-6.7) K/mm3 Absolute Nucleated RBC (0.0-0.012) K/mm3 Nucleated RBC % (0.0-0.2) % PT 13.9 (11.1-14.7) Seconds INR 1.0 APTT 29.4 (22.3-36.8) Seconds Sodium 137 (137-145) mmol/L Potassium 4.1 Cancelled (3.4-5.0) mmol/L Chloride 102 (98-107) mmol/L Carbon Dioxide 21 L (22-30) mmol/L Anion Gap 14 H (4-12) mmol/L BUN 24 H (9-20) mg/dL Creatinine 1.51 H (0.7-1.3) mg/dL Estim Creat Clear Calc 59 ml/min Estimated GFR 47 L (59 - ) Glucose 185 H (65-110) mg/dL Calcium 9.1 (8.4-10.2) mg/dL Magnesium 1.9 Cancelled (1.6-2.3) mg/dL Total Bilirubin 0.6 (0.2-1.3) mg/dL AST 40 (17-59) U/L ALT 53 H (6-50) U/L Alkaline Phosphatase 71 (38-126) U/L Troponin I < 0.012 (0.000-0.034) ng/mL Total Protein 8.0 (6.3-8.2) g/dL Albumin 4.7 (3.5-5.1) g/dL Lipase 161 (23-300) U/L Salicylates (2-20) mg/dL Acetaminophen (10-30) ug/mL 07/12/24 07/12/24 Range/Units 15:09 16:49 WBC 8.2 (4.5-10.0) K/mm3 RBC 4.90 (4.6-6.20) M/mm3 Hgb 14.6 (14.0-18.0) g/dL Hct 43.9 (42.0-52.0) % MCV 89.6 (80-100) fl MCH 29.8 (26-34) pg MCHC 33.3 (32-36) g/dl RDW 13.7 (11.5-14.5) % Plt Count 142 L (150-375) k/mm3 MPV 11.3 H (7.4-10.4) fl Immature Gran % (Auto) 0.2 (0-0.5) % Neut % (Auto) 74.2 H (45.5-73.1) % Lymph % (Auto) 14.7 L (18.3-44.2) % Crockett % (Auto) 8.9 H (2.6-8.5) % Eos % (Auto) 1.8 (0-4.4) % Baso % (Auto) 0.2 (0.2-1.2) % Lymph # (Auto) 1.20 (0.9-3.2) K/mm3 Crockett # (Auto) 0.7 H (0.1-0.6) K/mm3 Eos # (Auto) 0.2 (0-0.3) K/mm3 Baso # (Auto) 0.0 (0.0-0.1) K/mm3 Abs Immat Gran (auto) 0.02 (0.00-0.031) K/mm3 Absolute Neuts (auto) 6.1 (1.3-6.7) K/mm3 Absolute Nucleated RBC 0.000 (0.0-0.012) K/mm3 Nucleated RBC % 0.0 (0.0-0.2) % PT (11.1-14.7) Seconds INR APTT (22.3-36.8) Seconds Sodium (137-145) mmol/L Potassium (3.4-5.0) mmol/L Chloride (98-107) mmol/L Carbon Dioxide (22-30) mmol/L Anion Gap (4-12) mmol/L BUN (9-20) mg/dL Creatinine (0.7-1.3) mg/dL Estim Creat Clear Calc ml/min Estimated GFR (59 - ) Glucose (65-110) mg/dL Calcium (8.4-10.2) mg/dL Magnesium (1.6-2.3) mg/dL Total Bilirubin (0.2-1.3) mg/dL AST (17-59) U/L ALT (6-50) U/L Alkaline Phosphatase (38-126) U/L Troponin I < 0.012 (0.000-0.034) ng/mL Total Protein (6.3-8.2) g/dL Albumin (3.5-5.1) g/dL Lipase (23-300) U/L Salicylates < 1.0 L (2-20) mg/dL Acetaminophen < 10 L (10-30) ug/mL <Maynor Larson MD - Last Filed: 07/12/24 17:32> Discharge Plan Discharge Clinical Impression: Accidental overdose, Congestive heart failure <Carolina Obrien PA-C - Last Filed: 07/12/24 17:19> Patient Disposition: Still a Patient <Carolina Obrien PA-C - Last Filed: 07/12/24 17:19> Condition: Stable <Carolina Obrien PA-C - Last Filed: 07/12/24 17:19> Patient Language: New Zealander <Carolina Obrien PA-C - Last Filed: 07/12/24 17:19> Prescriptions: No Action Breztri Aerosphere 160-9-4.8 mcg/actuation HFA aerosol inhaler 2 inh INHALATION BID isosorbide mononitrate 60 mg tablet extended release 24 hr 120 mg PO DAILY aspirin [Children's Aspirin] 81 mg tablet,chewable 81 mg PO DAILY carvedilol [Coreg] 12.5 mg Tablet 12.5 mg PO Q12HR Qty: 60 0RF nitroglycerin [Nitrostat] 0.4 mg Tablet, Sublingual 0.4 mg sublingual Q5MIN PRN (Reason: Chest Pain) Qty: 26 0RF omeprazole 40 mg capsule,delayed release(DR/EC) 40 mg PO DAILY Qty: 30 0RF tamsulosin 0.4 mg capsule 0.4 mg PO HS Qty: 30 0RF Jardiance 10 mg tablet 10 mg PO DAILY Qty: 30 0RF atorvastatin 80 mg tablet 80 mg PO DAILY Trulicity 3 mg/0.5 mL pen injector 3 mg SUBCUT WEEKLY Patient Comments: TAKES ON Tuesdays furosemide 40 mg tablet 40 mg PO DAILY clopidogrel 75 mg Tablet 75 mg PO QAM Qty: 30 0RF rivaroxaban [Xarelto] 2.5 mg tablet 2.5 mg PO BID Qty: 60 0RF spironolactone 25 mg Tablet 25 mg PO QAM Qty: 30 0RF Entresto 24-26 mg Tablet 1 tab PO Q12HR Qty: 30 0RF ranolazine 500 mg tablet extended release 12 hr 500 mg PO Q12H Qty: 30 0RF bupropion HCl [Wellbutrin SR] 150 mg tablet sustained-release 12 hr 150 mg PO BID amlodipine 10 mg tablet 10 mg PO DAILY metformin 1,000 mg tablet 1,000 mg PO BID alprazolam 0.25 mg tablet 0.25 mg PO HS Rx Instructions: at bedtime <Carolina Obrien PA-C - Last Filed: 07/12/24 17:19> Follow-up/Referrals: Angelina,JOVITA Junior [Primary Care Provider] - <Carolina Obrien PA-C - Last Filed: 07/12/24 17:19> Time of Disposition: 17:31 <Carolina Obrien PA-C - Last Filed: 07/12/24 17:19> 17:31 <Maynor Larson MD - Last Filed: 07/12/24 17:32>
--- OUTSIDE RECORDS SUMMARY | 2024-07-12 14:02 | XMS_ITS | Referral Summary ---
Author Organization [facility] [address] [place] [address] 162 Address [address] [place] [address] Care Team Providers Care Hospital Receiving Clerk Name Role Phone Sandi Alfaro Primary Care Provider + Encounters Date Type Department Care Team Description 07/12/2024 11:45 AM CDT Office Visit [facility] Cardiology [address] [facility] [address] [place] [address] Fernando Modi MD 07/11/2024 Telephone [facility] Medical [facility] Cardiology [address] [place] [address] [address] [place] [phone] Julio Richardson MD 07/08/2024 Telephone [facility] Medical [facility] Cardiology [address] [place] [address] [address] [place] [phone] Fernando Modi MD 07/08/2024 Orders Only [facility] Medical [facility] Cardiology [address] [place] [address] [address] [place] [phone] Julio Richardson MD 06/29/2024 Telephone [facility] Medical Group Cardiology [address] [place] [address] [address] [place] [phone] Fernando Modi MD 06/21/2024 Orders Only [facility] Medical [facility] Cardiology [address] [facility] [address] [place] [address] Paola Nolen MD 06/13/2024 Orders Only [facility] Health Information Management [address] [place] [address] Paola Nolen MD 05/16/2024 Orders Only [facility] Cardiology [address] [place] [address] [place] [phone] Julio Richardson MD 05/10/2024 Orders Only [facility] Cardiology [address] [place] [address] [place] [phone] Fernando Modi MD 04/22/2024 Results Follow-Up [address] [phone] Harini Mann RN Chest pain, unspecified type (Primary Dx); Cardiovascular stress test abnormal 04/21/2024 8:15 AM COATINGS INSPECTOR Ancillary Procedure [address] [phone] 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 04/20/2024 11:15 AM COATINGS INSPECTOR Ancillary Procedure [address] [phone] 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 from Last 3 Months Allergies No known active allergies Medications doxazosin (CARDURA) 2 mg tablet take 1 tablet by oral route every day 0 0 02/21/20 15 Active buPROPion SR (WELLBUTRIN SR) 150 mg 12 hr tablet take 2 Tablet by oral route every day 0 0 05/01/19 16 Active metFORMIN (GLUCOPHAGE) 1,000 mg tablet take 1 tablet by oral route 2 times every day with morning and evening meals 0 0 10/18/19 15 Active TRULICITY 1.5 mg/0.5 mL pen injector 02/26/20 18 Active albuterol HFA (PROVENTIL HFA,VENTOLIN HFA,PROAIR HFA) 90 mcg/actuation inhaler Inhale 2 puffs every 6 (six) hours as needed for wheezing Active ALPRAZolam (XANAX) 0.25 mg tablet Take 1 tablet (0.25 mg total) by mouth nightly as needed for sleep 05/29/19 22 Active montelukast (SINGULAIR) 10 mg tablet 09/10/19 22 Active amLODIPine (NORVASC) 10 mg tablet TAKE 1 TABLET BY MOUTH EVERY DAY 90 tablet 2 04/14/19 23 Active losartan (COZAAR) 100 mg tablet TAKE 1 TABLET BY MOUTH EVERY DAY 90 tablet 05/14/19 23 Active mupirocin (BACTROBAN) 2 % ointment Apply [...] needed for chest pain 75 tablet 3 02/14/20 23 Active isosorbide mononitrate ER (IMDUR) 60 mg 24 hr tabletIndicatio ns: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 TAKE 2 TABLETS BY MOUTH DAILY. 180 tablet 3 08/10/19 24 Active Xarelto 2.5 mg tablet TAKE 1 TABLET BY MOUTH TWICE A DAY 180 tablet 3 09/16/19 24 Active omeprazole (PriLOSEC) 40 mg capsule 10/19/19 24 Active atorvastatin (LIPITOR) 80 mg tablet TAKE 1 TABLET BY MOUTH EVERY DAY 90 tablet 1 01/25/20 24 Active meclizine (ANTIVERT) 25 mg tablet TAKE 1 TABLET BY MOUTH THREE TIMES A DAY NEEDED FOR DIZZINES 01/29/20 24 Active tamsulosin (FLOMAX) 0.4 mg extended release capsule TAKE 1 CAPSULE BY MOUTH EVERYDAY AT BEDTIME Active carvediloL (COREG) 12.5 mg tablet Take 1 tablet (12.5 mg total) by mouth 2 (two) times a day with meals 60 tablet 11 07/02/19 25 026 Active clopidogreL (PLAVIX) 75 mg tabletIndicatio ns:Thrombosis Prevention after PCI Take 1 tablet (75 mg total) by mouth daily 90 tablet 2 07/02/19 25 026 Active aspirin (ASPIR-81) 81 mg tablet take 1 tablet by oral route every day 0 0 10/18/19 15 025 Discontinued(Th erapy completed) carvediloL (COREG) 25 mg tablet Take 1 tablet (25 mg total) by mouth 2 (two) times a day with meals 025 Discontinued(Al ternate therapy) loratadine 10 mg capsule Take by mouth 025 Discontinued furosemide (LASIX) 40 mg tablet Take 1 tablet (40 mg total) by mouth daily 90 tablet 3 07/02/19 25 025 Discontinued(Th erapy completed) Active Problems Problem Noted Date Diagnosed Date Hematuria, gross 11/13/2021 Chronic heart failure with preserved ejection fr action 11/12/2018 Cryptogenic stroke 07/06/2018 Status post placement of implantable loop record er 10/13/2017 Overview (10/13/2017): Datalot Reveal Loop Recorder. Dx; Cryptogenic Stroke. DOI 10/12/[address] Willoughby. [employer] Bus remote monitoring. 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 02/20/2015 Overview (06/07/2016): Coronary artery disease involving pilot point coronary artery of [place] heart with other form of angina pectoris CVA, old, hemiparesis 02/20/2015 Overview (06/07/2016): CVA, old, hemiparesis Mixed diabetic hyperlipidemi a associated with type 2 diabetes mellitus ([facility]) 02/20/2015 Overview (06/07/2016): DM type 2 with [...] on file Legal Sex Male 3:15 AM COATINGS INSPECTOR Gender Identity Male 09/03/2018 6:22 AM CDT Sexual Orientation Straight 09/03/2018 6: 22 AM CDT Last Filed Vital Signs Vital Sign Reading Time Taken Comments Blood Pressure 136/74 07/12/2024 11:48 AM CDT Pulse 85 07/12/2024 11:48 AM CDT Temperature - - Respiratory Rate - - Oxygen Saturation 96% 07/12/2024 11:48 AM CDT Inhaled Oxygen Concentration - - Weight 135.2 kg (298 lb) 07/12/2024 11:48 AM CDT Height 182.9 cm (6') 07/12/2024 11:48 AM CDT Body Mass Index 40.42 07/12/2024 11:48 AM CDT Plan of Treatment Not on file Procedures Procedure Name Priority Date/Time Associated Diagnosis Comments CARDIOLOGY DOCUMENT SCAN Routine 07/05/2024 12:37 PM CDT CARDIOLOGY DOCUMENT SCAN Routine 06/17/2024 8:53 AM CDT CARDIOLOGY DOCUMENT SCAN Routine 06/16/2024 8:51 AM CDT CARDIOLOGY DOCUMENT SCAN Routine 06/16/2024 8:47 AM CDT CARDIOLOGY DOCUMENT SCAN Routine 06/15/2024 8:40 AM CDT CARDIOLOGY DOCUMENT SCAN Routine 06/14/2024 8:26 AM CDT CARDIOLOGY DOCUMENT SCAN 06/13/2024 CARDIOLOGY DOCUMENT SCAN Routine 05/04/2024 10:59 AM COATINGS INSPECTOR CARDIOLOGY DOCUMENT SCAN Routine 05/03/2024 10:55 AM COATINGS INSPECTOR CARDIOLOGY DOCUMENT SCAN Routine 05/03/2024 8:33 AM COATINGS INSPECTOR CARDIOLOGY DOCUMENT SCAN Routine 05/02/2024 10:52 AM COATINGS INSPECTOR CARDIOLOGY DOCUMENT SCAN Routine 05/02/2024 10:10 AM COATINGS INSPECTOR NM MPI SPECT (REST AND/OR STRESS) MULTIPLE STUDIES Schedule Routine, Read Routine (OP Routine) 04/20/2024 12:17 PM COATINGS INSPECTOR 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 LIPID PANEL Routine 10/20/2023 from Last 3 Months or Most Recently Relevant to Health Maintenance Results * Cardiology Document Scan (07/05/2024 12:37 PM CDT) Anatomical Region Laterality Modality Other Julio Richardson MD CV CARDIAC SERVICES PRO CEDURES Final Result * Cardiology Document Scan (06/17/2024 8:53 AM CDT) Anatomical Region Laterality Modality Other us Paola Nolen MD CV CARDIAC SERVICES PROCEDU RES Final Result * Cardiology Document Scan (06/16/2024 8:51 AM CDT) Anatomical Region Laterality Modality Other us Paola Nolen MD CV CARDIAC SERVICES PROCEDU RES Final Result * Cardiology Document Scan (06/16/2024 8:47 AM CDT) Anatomical Region Laterality Modality Other us Paola Nolen MD CV CARDIAC SERVICES PROCEDU RES Final Result * Cardiology Document Scan (06/15/2024 8:40 AM CDT) Anatomical Region Laterality Modality Other us Paola Nolen MD CV CARDIAC SERVICES PROCEDU RES Final Result * Cardiology Document Scan (06/14/2024 8:26 AM CDT) Anatomical Region Laterality Modality Other us Paola Nolen MD CV CARDIAC SERVICES PROCEDU RES Final Result * Cardiology Document Scan (06/13/2024) Anatomical Region Laterality Modality Other Paola Nolen MD CV CARDIAC SERVICES PROCEDU RES Final Result * Cardiology Document Scan (05/04/2024 10:59 AM COATINGS INSPECTOR) Anatomical Region Laterality Modality Other Julio Richardson MD CV CARDIAC SERVICES PRO CEDURES Final Result * Cardiology Document Scan (05/03/2024 10:55 AM COATINGS INSPECTOR) Anatomical Region Laterality Modality Other Julio Richardson MD CV CARDIAC SERVICES PRO CEDURES Final Result * Cardiology Document Scan (05/03/2024 8:33 AM COATINGS INSPECTOR) Anatomical Region Laterality Modality Other Julio Richardson MD CV CARDIAC SERVICES PRO CEDURES Final Result * Cardiology Document Scan (05/02/2024 10:52 AM COATINGS INSPECTOR) Anatomical Region Laterality Modality Other Fernando Modi MD CV CARDIAC SERVICES PROCEDURES F inal Result * Cardiology Document Scan (05/02/2024 10:10 AM COATINGS INSPECTOR) Anatomical Region Laterality Modality Other Result [facility] Fernando Modi MD CV CARDIAC SERVICES PROCEDURES F inal Result * NM MPI SPECT (Rest and/or Stress) Multiple Studies (04/20/2024 12:17 PM COATINGS INSPECTOR) Anatomical Region Laterality Modality Body N/A Nuclear Medicine 04/20/2024 11:1 5 AM COATINGS INSPECTOR Narrative 04/21/2024 4:44 PM COATINGS INSPECTOR [facility] Medical Group Cardiology [address] [facility] [address], [place] [address] [address] [facility] [address], [place] [address] P:[phone] P:[phone] MPI Imaging Report Patient Name: KLAUDIA HALEY Tomas : 1960 Study Date: 04/20/2024 11:15:21 AM Gender: M Tech: RADHA OROMT Location: [facility] Provider: IFRAH GIBSON Height(Cm): 182.9 BSA: Weight(Kg): 137.4 BMI: 41.07 Order Provider: PAIGE,IFRAH PHYSICIAN: Referring Physician: CARLOS Dial. HCG Physician: Fernando Modi M.D. Interpreting Physician: Gildardo Raymundo M.D. Stress Supervision: Gildardo Raymundo M.D. PROCEDURES: Pharmacologic SPECT Report: Myocardial perfusion imaging with Tc99M Sestamibi SPECT at rest and stress post regadenoson (Lexiscan) infusion. INDICATIONS: Dizziness, Hypertension, Shortness Of Breath, Family Hx CAD, High Cholesterol, Smoker, and I25.118 Atherosclerotic heart disease of [place] coronary artery with other forms of angina [...] By: Husam Raymundo MD 04/21/2024 4:43:33 PM COATINGS INSPECTOR Electronically Signed By: Husam Raymundo MD 04/21/2024 4:43:33 PM COATINGS INSPECTOR Procedure Note Husam Raymundo MD - 04/21/2024 [facility] Medical Group Cardiology [address] [facility] [address], [place] [address] [address] [facility] [address], [place], [place] [address] P:[phone] P:[phone] MPI Imaging Report Patient Name: KLAUDIA HALEY Tomas : 1960 Study Date: 04/20/2024 11:15:21 AM Gender: M [facility]: [facility] Provider: IFRAH GIBSON Height(Cm): 182.9 BSA: [...] Smoker, and I25.118 Atherosclerotic heart disease of [place] coronary artery withother forms of angina pectoris. [...] By: Husam Raymundo MD 04/21/2024 4:43:33 PM COATINGS INSPECTOR Electronically Signed By: Husam Raymundo MD 04/21/2024 4:43:33 PM COATINGS INSPECTOR Ifrah Gibson LEARNING AND DEVELOPMENT ANALYST IMG NM PROCEDURES Final R esult * (ABNORMAL) Lipid panel (10/20/2023) SCRIBED Cholesterol, Total 87 < - 200 EXTERNAL LAB SCRIBED HDL 24 > - 40 EXTERNAL LAB SCRIBED LDL 20 < - 100 EXTERNAL LAB SCRIBED Triglycerides 213(A) < - 150 EXTERNAL LAB Blood 10/20/2023 us Historical Provider LAB BLOOD ORDERABLES Elida l Result EXTERNAL LAB from Last 3 Months or Most Recently Relevant to Health Maintenance Insurance [facility] [employer] MEDICARE [facility] Address: [address] [address] [place] [address] IDOR Care Teams Hospital Receiving Clerk Relationship Specialty Start Date End Date Sandi Alfaro PA PCP - General Nurse Practitioner 08/21/17
--- OUTSIDE RECORDS SUMMARY | 2024-07-12 14:02 | XMS_ITS | Encounter Summary ---
Author Organization [facility] Address [address] [place] [address] Care Team Providers Care Nurses Supervisor Name Role Phone Sandi Alfaro Primary Care Provider [phone] Sandi Alfaro Unavailable [phone] Cheryl Huston RN Unavailable Unavailable Encounter Details Date Type Department Care Team (Late st Contact Info) Description 05/13/2021 Reach Surgical Message Enc [facility] Medical Group Multispecialty Care - [facility] [address] [facility] [place] [address] Eliza, [facility] Provider CPAP Social History Tobacco Use Types Packs/Day Years Used Date Smoking Tobacco: Every Day Cigarettes 0.3 40 Smokeless Tobacco: Never Comments:want to quit but gary s alot of stress right [id number] smoking about 3-4 cigaretts a day Alcohol Use Standard Drinks/Week Comments Yes 0 (1 standard drink = 0.6 oz pur e alcohol) very rarely 6 beers/year PHQ-2 Answer Date Recorded PHQ-2 Score - If the patient scores above 3, please move on to questions 3-9 4 01/23/2021 Sex and Gender Information Value Date Recorded Sex Assigned at Male 03/31/2024 8:58 AM MANAGER MARKETING COMMUNICATIONS Legal Sex Male 8:01 PM CDT Gender [...] Description 07/20/2024 8:40 AM CDT Office Visit [facility] Medical Group Family & Internal Medicine [address] [phone] Sandi Alfaro APNP [address] [place] [address] documented as of this encounter Visit Diagnoses Not on filedocumented in this encounter Additional Health Concerns Infection Onset Date Last Indicated Resolved Time COVID-19 Rule Out 05/12/2023 05/12/2023 05/13/2023 12:01 AM CDT Influenza - Seasonal 05/14/2023 05/14/2023 024 12:32 AM CDT Assessment Noted Time PHQ-9 Depression Total Score: 7 01/24/20 21 1:37 PM MANAGER MARKETING COMMUNICATIONS documented as of this encounter Care Teams Nurses Supervisor Relationship Specialty Start Date End Date Sandi Alfaro APNP Family & Internal Medicine [address] [address] PCP - General [facility] [employer] HIGH VALUE ASSOCIATE 04/28/17 Snadi Alfaro APNP [address] [place] [address] PCP - Med Group - [facility] Attributed Provider 03/02/15 03/01/22 Cheryl Huston, caregivers non medical (Ambulatory) REGISTERED NURSE 03/23/19 documented as of this encounter
--- OUTSIDE RECORDS SUMMARY | 2024-07-12 14:02 | XMS_ITS ---
Author Organization [facility] Address [address] [place], [place] [address] Care Team Providers Care Lead Shipper Name Role Phone PIETER WALSH Unavailable [phone] Sandi Alfaro Unavailable Unavailable REASON FOR VISIT dropped rolling pin on right foot. - canc. by pt., in hospital Encounters Encounter Location Date Provider Diagnosis [facility] [address] [facility] [address] [place], [place] [phone] 07/04/2024 PIETER WALSH Plan Of Treatment Next Appt Details Provider Name:PIETER WALSH, 08:10:00 AM, [address], [place], [place], [phone], Progress Notes * KLAUDIA HALEY BDOB:[birth year] (64 yo M)Acc No.[id number]:07/04/2024 Patient: Trina BISHOP KLAUDIA Marin Provider: Kristal Walsh DPM :1960 A ge:64 Y S ex:Male Date:07/04/2024 Address:[address], [id number] Subjective: * Chief Complaints: * 1 . Dropped rolling pin on right foot. - canc. by pt., in hospital. * Medical History: Objective: * Vitals: Assessment: Plan: * Treatment: * Billing Information: * Visit Code: * Procedure Codes: * Electronic signature of PIETER WALSH DPM on 07/12/2024 at 11:35 AM CDT Sign off status: Pending * Provider: Kristal Walsh DPM Date: 0 07/04/2024 Generated for Michelle Drummond/Nimesh on: 0 07/12/2024 11:35 AM CDT
--- OUTSIDE RECORDS SUMMARY | 2024-07-12 14:02 | XMS_ITS ---
Author Organization [facility] Address [address] [place], [place] [address] Care Team Providers Care Fender Finisher Name Role Phone PIETER WALSH Unavailable [phone] Sandi Alfaro Unavailable Unavailable Allergies No Known [...] clotrimazole 10 MG/ML Topical Cream *Reorder from [employer] for eRx and Interaction Alerts* 7 Active betamethasone 0.5 MG/ML / clotrimazole 10 MG/ML Topical Cream [Lotrisone] CUTANEOUS betamethasone 0.5 MG/ML / clotrimazole 10 MG/ML Topical Cream [Lotrisone]Original Medicationbetamethasone 0.5 MG/ML / clotrimazole 10 MG/ML Topical Cream [Lotrisone] *Reorder from [employer] for eRx and Interacti 7 Active Augmented betamethasone 0.5 MG/ML Topical Cream CUTANEOUS Augmented betamethasone 0.5 MG/ML Topical CreamOriginal MedicationAugmented betamethasone 0.5 MG/ML Topical Cream *Reorder from [facility] for eRx and Interaction Alerts* 7 Active clobetasol propionate 0.0005 MG/MG Topical Ointment [Temovate] CUTANEOUS clobetasol propionate 0.0005 MG/MG Topical Ointment [Temovate]Original Medicationclobetasol propionate 0.0005 MG/MG Topical Ointment [Temovate] *Reorder from [facility] [facility] for eRx and Interaction Alerts* 7 Active clotrimazole 10 MG/ML Topical Cream CUTANEOUS clotrimazole 10 MG/ML Topical CreamOriginal Medicationclotrimazole 10 MG/ML Topical Cream *Reorder from [employer] for eRx and Interaction Alerts* 7 Active Encounters Encounter Location Date Provider Diagnosis [facility] [place] [address] [place], [place] [id number] 03/28/2024 PIETER SNOOK Tinea unguium B35.1 ; Pain in right toe(s) M79.674 ; Pain in left toe(s) M79.675 ; Atherosclerosis of [place] arteries of extremities with intermittent claudication, bilateral [...] toe(s) (ICD-10 - M79.675) 03/28/2024 Atherosclerosis of [place] arteries of extremities with intermittent claudication, bilateral [...] problems develop. Provider Name:PIETER WALSH, 08:10:00 AM, [address], [address], [id number], Progress Notes * SUHDASARA BACAITH BDOB:[birth year] (63 yo M)Acc No.[id number]:03/28/2024 Patient: KLAUDIA DUONG Provider: Kristal Walsh DPM :1960 A ge:63 Y S ex:Male Date:03/28/2024 Address:[address] [place] [address] [facility] Subjective: * Chief Complaints: * Mundo gonzales [...] betamethasone 0.5 MG/ML Topical Cream *Reorder from [employer] for eRx and Interaction Alerts*betamethasone 0.5 MG/ML / clotrimazole 10 MG/ML Topical Cream CUTANEOUS , Notes to Pharmacist: betamethasone 0.5 MG/ML / clotrimazole 10 MG/ML Topical CreamOriginal Medicationbetamethasone 0.5 MG/ML / clotrimazole 10 MG/ML Topical Cream *Reorder from [employer] for eRx and Interaction Alerts*betamethasone 0.5 MG/ML / clotrimazole 10 MG/ML Topical Cream [Lotrisone] CUTANEOUS , Notes to Pharmacist: betamethasone 0.5 MG/ML / clotrimazole 10 MG/ML Topical Cream [Lotrisone]Original Medicationbetamethasone 0.5 MG/ML / clotrimazole 10 MG/ML Topical Cream [Lotrisone] *Reorder from [employer] for eRx and Interacticlobetasol propionate 0.0005 MG/MG Topical Ointment [Temovate] CUTANEOUS , Notes to Pharmacist: clobetasol propionate 0.0005 MG/MG Topical Ointment [Temovate]Original Medicationclobetasol propionate 0.0005 MG/MG Topical Ointment [Temovate] *Reorder from [employer] for eRx and Interaction Alerts*clotrimazole 10 MG/ML Topical Cream CUTANEOUS , Notes to Pharmacist: clotrimazole 10 MG/ML Topical CreamOriginal Medicationclotrimazole 10 MG/ML Topical Cream *Reorder from [employer] for eRx and Interaction Alerts*Medication List reviewed and reconciled with the patientTaking Augmented betamethasone 0.5 MG/ML Topical Cream CUTANEOUS , Notes to Pharmacist: Augmented betamethasone 0.5 MG/ML Topical CreamOriginal MedicationAugmented betamethasone 0.5 MG/ML Topical Cream *Reorder from [facility] for eRx and Interaction Alerts*Taking betamethasone 0.5 MG/ML / clotrimazole 10 MG/ML Topical Cream CUTANEOUS , Notes to Pharmacist: betamethasone 0.5 MG/ML / clotrimazole 10 MG/ML Topical CreamOriginal Medicationbetamethasone 0.5 MG/ML / clotrimazole 10 MG/ML Topical Cream *Reorder from [facility] for eRx and Interaction Alerts*Taking betamethasone 0.5 MG/ML / clotrimazole 10 MG/ML Topical Cream [Lotrisone] CUTANEOUS , Notes to Pharmacist: betamethasone 0.5 MG/ML / clotrimazole 10 MG/ML Topical Cream [Lotrisone]Original Medicationbetamethasone 0.5 MG/ML / clotrimazole 10 MG/ML Topical Cream [Lotrisone] *Reorder from [facility] for eRx and InteractiTaking clobetasol propionate 0.0005 MG/MG Topical Ointment [Temovate] CUTANEOUS , Notes to Pharmacist: clobetasol propionate 0.0005 MG/MG Topical Ointment [Temovate]Original Medicationclobetasol propionate 0.0005 MG/MG Topical Ointment [Temovate] *Reorder from [facility] for eRx and Interaction Alerts*Taking clotrimazole 10 MG/ML Topical Cream CUTANEOUS , Notes to Pharmacist: clotrimazole 10 MG/ML Topical CreamOriginal Medicationclotrimazole 10 MG/ML Topical Cream *Reorder from [facility] for eRx and Interaction Alerts*Medication List [...] subungual debris. They are painful to palpation. V ascular: Dorsalis pedis pulse: 1 /4 b ilateral. Posterior tibial pulse: 0 /4 bilateral. Capillary refill: g reater than 3 seconds. Edema: N o edema bilateral. N eurologic: Gross sensation G rossly intact to light touch. There is negative Tinel's sign. M usculoskeletal: Muscle Strength M uscle strength is 5/5 in regards to dorsiflexion, plantarflexion, inversion, and eversion in bilateral lower extremities. Assessment: * Assessment: 1. T inea unguium - B35.1 (Primary) 2 . P ain in right toe(s) - M79.674 3. P ain in left toe(s) - M79.675 4 . A therosclerosis of [place] arteries of extremities with intermittent claudication, bilateral [...] Information: * Visit Code: * Procedure Codes: 78063 DEBRIDE NAIL, 6 OR MORE. Modifiers: Q8 * L FENCE ERECTOR Sign off status: Completed true * Provider: Kristal Walsh DPM Date: 0 03/28/2024 Generated for Michelle chi/Danielle/Nimesh on: 0 07/12/2024 11:35 AM CDT History and Physical Notes * HPI [...]
--- OUTSIDE RECORDS SUMMARY | 2024-07-12 14:02 | XMS_ITS | Clinical Summary ---
Author Organization [facility] [address] Address [address] [place] [address] Care Team Providers Care Radio Repairer Domestic Name Role Phone Sandi Alfaro Primary Care Provider + Allergies No known active allergies Medications doxazosin [...] 24 hr tabletIndicatio ns:Coronary artery disease of [place] artery of [place] heart with stable angina pectoris TAKE 2 [...] every day 0 0 10/18/19 15 025 Discontinued( erapy completed) carvediloL (COREG) 25 mg tablet [...] Active Problems Problem Noted Date Diagnosed Date Justin, gross 11/13/2021 Chronic heart failure with preserved ejection fr action 11/12/2018 Cryptogenic stroke 07/06/2018 Status post placement of implantable loop record er 10/13/2017 Overview (10/13/2017): Medtr[employer] Reveal Loop Recorder. Dx; Cryptogenic Stroke. DOI 10/12/[address] Willoughby. [employer] remote monitoring. 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) 02/20/2015 Overview (06/07/2016): DM type 2 with [...] Description 07/12/2024 11:45 AM CDT Office Visit [facility] Medical [facility] Cardiology [address] [place] [address] [place] [phone] Fernando Modi MD 07/11/2024 Telephone [facility] Cardiology [address] [place] [address] [place] [phone] Julio Richardson MD 07/08/2024 Telephone [facility] Cardiology [address] [place] [address] [place] [phone] Fernando Modi MD 07/08/2024 Orders Only [facility] Cardiology [address] [place] [address] [place] [phone] Julio Richardson MD 06/29/2024 Telephone [facility] Cardiology [address] [place] [address] [place] [phone] Fernando Modi MD 06/21/2024 Orders Only [facility] Cardiology [address] [place] [address] [place] [phone] Paola Nolen MD 06/13/2024 Orders Only [facility] Health Information Management [address] [place] [address] Paola Nolen MD 05/16/2024 Orders Only [facility] Cardiology [address] [place] [address] [place] [phone] Julio Richardson MD 05/10/2024 Orders Only [facility] Cardiology [address] [place] [address] [place] [phone] Fernando Modi MD 04/22/2024 Results Follow-Up [facility] Cardiology [address] [place] [address] [place] [phone] Harini Mann RN Chest pain, unspecified type (Primary Dx); Cardiovascular stress test abnormal 04/21/2024 8:15 AM RADIOLOGY TEACHER Ancillary Procedure [facility] Cardiology [address] [place] [address] Coronary artery disease of gambell artery of gambell heart with stable angina pectoris 04/20/2024 11:15 AM RADIOLOGY TEACHER Ancillary Procedure [facility] Cardiology [address] [place] [address] Coronary artery disease of gamb[place] artery of [place] heart with stable angina pectoris from Last [...] on file Legal Sex Male 3:15 AM RADIOLOGY TEACHER Gender Identity Male 09/03/2018 6:22 AM [...] 07/12/2024 11:48 AM CDT Plan of Treatment Health Maintenance Due [...] CARDIOLOGY DOCUMENT SCAN Routine 05/04/2024 10:59 AM RADIOLOGY TEACHER CARDIOLOGY DOCUMENT SCAN Routine 05/03/2024 10:55 AM RADIOLOGY TEACHER CARDIOLOGY DOCUMENT SCAN Routine 05/03/2024 8:33 AM RADIOLOGY TEACHER CARDIOLOGY DOCUMENT SCAN Routine 05/02/2024 10:52 AM RADIOLOGY TEACHER CARDIOLOGY DOCUMENT SCAN Routine 05/02/2024 10:10 AM RADIOLOGY TEACHER NM MPI SPECT (REST AND/OR STRESS) MULTIPLE STUDIES Schedule Routine, Read Routine (OP Routine) 04/20/2024 12:17 PM RADIOLOGY TEACHER Coronary artery disease of gambell artery of gambell heart with stable angina pectoris LIPID PANEL [...] Scan (06/13/2024) Anatomical Region Laterality Modality Other us Paola Nolen MD CV CARDIAC SERVICES PROCEDU RES Final Result * Cardiology Document Scan (05/04/2024 10:59 AM RADIOLOGY TEACHER) Anatomical Region Laterality Modality Other Julio Richardson MD CV CARDIAC SERVICES PRO CEDURES Final Result * Cardiology Document Scan (05/03/2024 10:55 AM RADIOLOGY TEACHER) Anatomical Region Laterality Modality Other Julio Richardson MD CV CARDIAC SERVICES PRO CEDURES Final Result * Cardiology Document Scan (05/03/2024 8:33 AM RADIOLOGY TEACHER) Anatomical Region Laterality Modality Other Julio Richardson MD CV CARDIAC SERVICES PRO CEDURES Final Result * Cardiology Document Scan (05/02/2024 10:52 AM RADIOLOGY TEACHER) Anatomical Region Laterality Modality Other Fernando Modi MD CV CARDIAC SERVICES PROCEDURES F inal Result * Cardiology Document Scan (05/02/2024 10:10 AM RADIOLOGY TEACHER) Anatomical Region Laterality Modality Other Fernando Modi MD CV CARDIAC SERVICES PROCEDURES F inal Result * NM MPI SPECT (Rest and/or Stress) Multiple Studies (04/20/2024 12:17 PM RADIOLOGY TEACHER) Anatomical Region Laterality Modality Body N/A Nuclear Medicine 04/20/2024 11:1 5 AM RADIOLOGY TEACHER Narrative 04/21/2024 4:44 PM RADIOLOGY TEACHER [facility] Medical Group Cardiology [address] [facility] [address], [place] [address] [address] [facility] [address] [address] P:[phone] P:[phone] MPI Imaging Report Patient Name: KLAUDIA HALEYTomas : 1960 Study Date: 04/20/2024 11:15:21 AM Gender: M Tech: [facility] Location: [facility] Provider: IFRAH GIBSON Height(Cm): 182.9 [...] Smoker, and I25.118 Atherosclerotic heart disease of gambell coronary artery with other forms of angina [...] By: Husam Raymundo MD 04/21/2024 4:43:33 PM RADIOLOGY TEACHER Electronically Signed By: Husam Raymundo MD 04/21/2024 4:43:33 PM RADIOLOGY TEACHER Procedure Note Husam Raymundo MD - 04/21/2024 [facility] Cardiology [address] [facility] [address], [place] [address] [address] [facility] [address], [place] [address] P:[phone] P:[phone] MPI Imaging Report Patient Name: KLAUDIA HALEYTomas : 1960 Study Date: 04/20/2024 11:15:21 AM Gender: M Tech: [facility] Location: [facility] Provider: IFRAH GIBSON Height(Cm): 182.9 [...] Smoker, and I25.118 Atherosclerotic heart disease of gambell coronary artery withother forms of angina pectoris. [...] By: Husam Raymundo MD 04/21/2024 4:43:33 PM RADIOLOGY TEACHER Electronically Signed By: Husam Raymundo MD 04/21/2024 4:43:33 PM RADIOLOGY TEACHER Ifrah Gibson ORGANIC CHEMISTRY PROFESSOR IMG NM PROCEDURES Final R esult * [...] Most Recently Relevant to Health Maintenance Insurance [facility] MEDICARE MEDICARE IDPA Care Teams Radio Repairer Domestic Relationship Specialty Start Date End Date Sandi Alfaro PA PCP - General Nurse Practitioner 08/21/17
--- OUTSIDE RECORDS SUMMARY | 2024-07-12 14:02 | XMS_ITS ---
Author Organization [facility] Address [address] [place], [place] [id number] Care Team Providers Care Oracle Security Consultant Name Role Phone PIETER WALSH Unavailable [phone] Sandi Alfaro Unavailable Unavailable Allergies No Known [...] Medicationclotrimazole 10 MG/ML Topical Cream *Reorder from [employer] for eRx and Interaction Alerts* 7 Active betamethasone 0.5 MG/ML / clotrimazole 10 MG/ML Topical Cream CUTANEOUS betamethasone 0.5 MG/ML / clotrimazole 10 MG/ML Topical CreamOriginal Medicationbetamethasone 0.5 MG/ML / clotrimazole 10 MG/ML Topical Cream *Reorder from [employer] for eRx and Interaction Alerts* 7 Active Augmented betamethasone 0.5 MG/ML Topical Cream CUTANEOUS Augmented betamethasone 0.5 MG/ML Topical CreamOriginal MedicationAugmented betamethasone 0.5 MG/ML Topical Cream *Reorder from [employer] for eRx and Interaction Alerts* 7 Active clobetasol propionate 0.0005 MG/MG Topical Ointment [Temovate] CUTANEOUS clobetasol propionate 0.0005 MG/MG Topical Ointment [Temovate]Original Medicationclobetasol propionate 0.0005 MG/MG Topical Ointment [Temovate] *Reorder from [place] [facility] for eRx and Interaction Alerts* 7 Active betamethasone 0.5 MG/ML / clotrimazole 10 MG/ML Topical Cream [Lotrisone] CUTANEOUS betamethasone 0.5 MG/ML / clotrimazole 10 MG/ML Topical Cream [Lotrisone]Original Medicationbetamethasone 0.5 MG/ML / clotrimazole 10 MG/ML Topical Cream [Lotrisone] *Reorder from [place] [facility] for eRx and Interacti 7 Active Vital Signs Weight 330 lbs 06/27/2024 Weight-kg 149.69 kg 06/27/2024 Height 72.00 in 06/27/2024 Height-cm 182.88 cm 06/27/2024 BMI 44.75 kg/m2 06/27/2024 Encounters Encounter Location Date Provider Diagnosis [facility] [address] [place] [id number] 06/27/2024 PIETER SNOOK Tinea unguium B35.1 ; Pain in right toe(s) M79.674 ; Pain in left toe(s) M79.675 ; Atherosclerosis of [place] arteries of extremities with intermittent claudication, bilateral [...] toe(s) (ICD-10 - M79.675) 06/27/2024 Atherosclerosis of [place] arteries of extremities with intermittent claudication, bilateral [...] problems develop. Provider Name:PIETER WALSH, 08:10:00 AM, [address], [address], [phone], Progress Notes * KLAUDIA HALEY BDOB:[birth year] (64 yo M)Acc No.[id number]:06/27/2024 Patient: KLAUDIA DUONG Provider: Kristal Walsh DPM :1960 A ge:64 Y S ex:Male Date:06/27/2024 Address:[address] [place] [address] [id number] Subjective: * Chief Complaints: * 1 . [...] betamethasone 0.5 MG/ML Topical Cream *Reorder from [employer] for eRx and Interaction Alerts*, Taking betamethasone 0.5 MG/ML / clotrimazole 10 MG/ML Topical Cream CUTANEOUS , Notes to Pharmacist: betamethasone 0.5 MG/ML / clotrimazole 10 MG/ML Topical CreamOriginal Medicationbetamethasone 0.5 MG/ML / clotrimazole 10 MG/ML Topical Cream *Reorder from [employer] for eRx and Interaction Alerts*, Taking betamethasone 0.5 MG/ML / clotrimazole 10 MG/ML Topical Cream [Lotrisone] CUTANEOUS , Notes to Pharmacist: betamethasone 0.5 MG/ML / clotrimazole 10 MG/ML Topical Cream [Lotrisone]Original Medicationbetamethasone 0.5 MG/ML / clotrimazole 10 MG/ML Topical Cream [Lotrisone] *Reorder from [employer] for eRx and Interacti, Taking clobetasol propionate 0.0005 MG/MG Topical Ointment [Temovate] CUTANEOUS , Notes to Pharmacist: clobetasol propionate 0.0005 MG/MG Topical Ointment [Temovate]Original Medicationclobetasol propionate 0.0005 MG/MG Topical Ointment [Temovate] *Reorder from [employer] for eRx and Interaction Alerts*, Taking clotrimazole 10 MG/ML Topical Cream CUTANEOUS , Notes to Pharmacist: clotrimazole 10 MG/ML Topical CreamOriginal Medicationclotrimazole 10 MG/ML Topical Cream *Reorder from [facility] for eRx and Interaction Alerts*, Medication List [...] - M79.675 4 . 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 * Procedure Codes: 1 1721 DEBRIDE NAIL, 6 OR MORE, Modifiers: Q8 * Follow Up: 1 0 - 12 weeks (Reason: At-Risk Foot care, sooner if problems develop.) * Billing Information: * Visit Code: * Procedure Codes: 95862 DEBRIDE NAIL, 6 OR MORE. Modifiers: Q8 * Electronic signature of PIETER WALSH DPM on 07/12/2024 at 02:02 PM CDT Sign off status: Pending * Provider: Kristal Walsh DPM Date: 0 06/27/2024 Generated for Michelle chi/Danielle/Nimesh on: 0 07/12/2024 02:02 PM CDT History and Physical Notes * [...]
--- OUTSIDE RECORDS SUMMARY | 2024-07-12 14:03 | XMS_ITS | Clinical Summary ---
Author Organization [facility] Address [address] [place] [address] Care Team Providers Care Computing Architect Name Role Phone Sandi Alfaro MANAGER BILLING-BEAD FLIPPER Primary Care Provider Source Comments [facility],non-owned Affiliates and Associated Physician Practices is amultiple site organization consisting of ambulatory clinics and hospital sitesin [place], [place], [place] and [place]. This disclosure is being madepursuant to the Care Everywhere program and may not contain all information available regarding this patient. 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 Blood BLOOD SPECIMEN / Unknown Venipuncture / Unknown 05/26/2018 4:21 PM CDT 05/26/2018 4:26 PM CDT Jim Ann MD LAB - HEMATOLOGY ORDERABLES F inal Result Performing Organization Address [facility] Co de Phone Number [address] [phone] * HEPATITIS C AB SCREEN RFLX NAAT QUANT (05/26/2018 4:21 PM CDT) Pathologist [facility] Hepatitis C Antibody Non-react kendell Non-reac tive 05/26/2018 5:13 PM CDT [facility] Comment: Hepatitis C Antibody screen indicates [...] ORDERABLES Fi nal Result Performing Organization Address City/[facility]/ZIP Co de Phone Number [address] [address], [place] [phone] from Last 3 Months or Most Recently Relevant to Health Maintenance Insurance MEDICARE MEDICAID - OUT OF STATE MEDICARE MEDICAID - [place] Advance Directives * Full Code (Latest Code Status on File) Date Activated Date Inactivated Comments 05/26/2018 2:01 PM 05/28/2018 11:56 AM Care Teams Computing Architect Relationship Specialty Start Date End Date Sandi Alfaro APRN-BEAD FLIPPER [address] [place] [id number] PCP - General 08/27/21
--- OUTSIDE RECORDS SUMMARY | 2024-07-12 14:03 | XMS_ITS | Encounter Summary ---
Author Organization [facility] Address [address] [place] [address] Care Team Providers Care Cut Out Machine Operator Name Role Phone Sandi Alfaro Primary Care Provider + Reason for Visit * Reason Comments Follow-up Encounter Details Date Type Department Care Team (Late st Contact Info) Description 07/12/2024 11:45 AM CDT Office Visit [facility] Cardiology [address] [address] [address] [place] [address] Fernando Modi MD [address] [facility] [address] [place] [address] Social History Tobacco Use Types Packs/Day Years Used Date Smoking Tobacco: Some Days Cigarettes 0.3 15 Smokeless Tobacco: Never Alcohol Use Standard Drinks/Week Comments Yes 0 (1 standard drink = 0.6 oz pur e alcohol) Sex and Gender Information Value Date Recorded Sex Assigned at Not on file Legal Sex Male 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 Gender Identity Male 09/03/2018 6:22 AM CDT [...] Mass Index 40.42 07/12/2024 11:48 AM CDT documented in this encounter Plan of Treatment Not on file documented as of this encounter Visit Diagnoses Not on filedocumented in this encounter Discontinued Medications Medication Sig Discontinue Reason Start Date End Da te aspirin (ASPIR-81) 81 mg tablet take 1 tablet by oral route every day Therapy completed 10/17/2014 07/12/2024 furosemide (LASIX) 40 mg tablet Take 1 tablet (40 mg total) by mouth daily Therapy completed 07/01/2024 07/12/2024 loratadine 10 mg capsule Take by mouth 025 documented as of this encounter Care Teams Cut Out Machine Operator Relationship Specialty Start Date End Date Sandi Alfaro PA PCP - General Nurse Practitioner 08/21/17 documented as of this encounter
--- OUTSIDE RECORDS SUMMARY | 2024-07-12 14:03 | XMS_ITS | Encounter Summary ---
Author Organization [facility] Address [address] [place] [id number] Care Team Providers Care Elevator Runner Name Role Phone Sandi Alfaro Primary Care Provider [phone] Cheryl Huston RN Unavailable Unavailable Encounter Details Date Type Department Care Team (Latest Contact Info) Description 07/02/2024 Scan [facility] Scanned, Doc Med Group Social History Tobacco Use Types Packs/Day Years Used Date Smoking Tobacco: Former Cigarettes 0.3 40 Q uit: 02/17/2024 Smokeless Tobacco: Never Comments:currently smoking 1 -2 cigarettes a day Alcohol Use Standard Drinks/Week Comments Yes 0 (1 standard drink = 0.6 oz pur e alcohol) very rarely 6 beers/year [facility] Utilities Answer Date Recorded In the past 12 months has e Interview Rocket, gas, oil, or water [employer] threatened to shut off services in [...] often do you attend chur ch or church services? 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 Legal Sex Male 8:01 PM CDT [...] Description 07/20/2024 8:40 AM CDT Office Visit [facility] Family & Internal Medicine [address] [phone] Sandi Alfaro APNP [address] [place] [phone] documented as of this encounter Visit Diagnoses Not on filedocumented in this encounter Additional Health Concerns Assessment Noted Time PHQ-9 Depression Total Score: 0 05/21/19 24 11:21 AM CDT documented as of this encounter Care Teams Elevator Runner Relationship Specialty Start Date End Date Sandi Alfaro APNP Family & Internal Medicine [address] [address] PCP - General [facility] [employer] DRILL RIG OPERATOR 04/28/17 Cheryl Huston nurse anesthesia program director (Ambulatory) REGISTERED NURSE 03/23/19 documented as of this encounter
--- OUTSIDE RECORDS SUMMARY | 2024-07-12 14:03 | XMS_ITS | Encounter Summary ---
Author Organization [facility] Address [address] [place] [address] Care Team Providers Care Pension Examiner Name Role Phone Sandi Alfaro Primary Care Provider [phone] Sandi Alfaro Unavailable [phone] Cheryl Huston RN Unavailable Unavailable Encounter Details Date Type Department Care Team (Latest Contact Info) Description 10/26/2017 Abstract [facility] Medical Group , Shay Hughes [...] Sex Assigned at Male 03/31/2024 8:58 AM WARRANTY COORDINATOR Legal Sex Male 8:01 PM CDT Gender Identity Not on file Sexual Orientation Not on file documented as of this encounter Plan of Treatment Upcoming Encounters Date Type Department Care Team (Late st Contact Info) Description 07/20/2024 8:40 AM CDT Office Visit [facility] Medical Group Family & Internal Medicine [address] [phone] Sandi Alfaro APNP [address] [place] [address] documented as of this encounter Visit Diagnoses Not on filedocumented in this encounter Additional Health Concerns Infection Onset Date Last Indicated Resolved Time COVID-19 Rule Out 10/24/2019 11/25/2019 11/27/2019 1:56 AM CDT COVID-19 Rule Out 05/03/2020 05/03/2020 05/03/2020 3:25 PM WARRANTY COORDINATOR COVID-19 Rule Out 05/12/2023 05/12/2023 05/13/2023 12:01 AM CDT Influenza - Seasonal 05/14/2023 05/14/2023 024 12:32 AM CDT documented as of this encounter Care Teams Pension Examiner Relationship Specialty Start Date End Date Sandi Alfaro APNP Family & Internal Medicine [address] [address] PCP - General ADVANCED PRACTICE MICA PATCHER 04/28/17 Sandi Alfaro APNP [address] [place] [address] PCP - Med Group - MSSP Attributed Provider 03/02/15 03/01/22 Cheryl Huston, oil bay technician (Ambulatory) REGISTERED NURSE 03/23/19 documented as of this encounter
--- OUTSIDE RECORDS SUMMARY | 2024-07-12 14:03 | XMS_ITS | Encounter Summary ---
Author Organization [facility] Address [address] [place] [address] Care Team Providers Care Steam Roller Operator Name Role Phone Sandi Alfaro Primary Care Provider [phone] Cheryl Huston RN Unavailable Unavailable Encounter Details Date Type Department Care Team (Latest Contact Info) Description 07/03/2024 Scan [facility] Scanned, Doc Med Group Social History Tobacco Use Types Packs/Day Years Used Date Smoking Tobacco: Former Cigarettes 0.3 40 Q uit: 02/17/2024 Smokeless Tobacco: Never Comments:currently smoking 1 -2 cigarettes a day Alcohol Use Standard Drinks/Week Comments Yes 0 (1 standard drink = 0.6 oz pur e alcohol) very rarely 6 beers/year [facility] Utilities Answer Date Recorded In the past 12 months has e [employer], gas, oil, or water [employer] threatened to shut off services in your [...] any clubs o r organizations such as sabianism groups, unions, fraternal or athletic groups, or [...] Recorded Patient Health Questionnaire-2 Score 0 03/31/2024 [facility] - Occupational Stress Questionnaire Answer Date [...] place to sleep or slept in a residential (including now)? 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 Legal Sex Male 8:01 PM CDT Gender [...] Description 07/20/2024 8:40 AM CDT Office Visit [facility] Medical Group Family & Internal Medicine [address] [phone] Sandi Alfaro APNP [address] [place] [address] documented as of this encounter Visit Diagnoses Not on filedocumented in this encounter Additional Health Concerns Assessment Noted Time PHQ-9 Depression Total Score: 0 05/21/19 24 11:21 AM CDT documented as of this encounter Care Teams Steam Roller Operator Relationship Specialty Start Date End Date Sandi Alfaro APNP Family & Internal Medicine [address] [address] PCP - General ADVANCED PRACTICE STANDARDS ANALYST 04/28/17 Cheryl Huston fern picker (Ambulatory) REGISTERED NURSE 03/23/19 documented as of this encounter
--- OUTSIDE RECORDS SUMMARY | 2024-07-12 14:03 | XMS_ITS | Encounter Summary ---
Author Organization [facility] Address [address] [place] [address] Care Team Providers Care Die Cast Operator Name Role Phone Sandi Alfaro Primary Care Provider [phone] Cheryl Huston RN Unavailable Unavailable Encounter Details Date Type Department Care Team (Late st Contact Info) Description 08/18/2023 [employer] Message Enc [facility] Medical Group Multispecialty Care - [facility] [address], [address] [place] [id number] [employer], [facility] [place] Provider Results Social History Tobacco Use Types Packs/Day Years Used Date Smoking Tobacco: Every Day Cigarettes 0.3 40 Smokeless Tobacco: Never Comments:currently smoking 2 -3 cigarettes a day Alcohol Use Standard Drinks/Week Comments Yes 0 (1 standard drink = 0.6 oz pur e alcohol) very rarely 6 beers/year [facility] Utilities Answer Date Recorded In the past 12 months has [facility] [email or web address], gas, oil, or water [employer] threatened to shut off services in your [...] any clubs o r organizations such as rastafarian groups, unions, fraternal or athletic groups, or [...] Recorded Patient Health Questionnaire-2 Score 0 05/21/2023 [facility] of Occupat ional Health - [...] place to sleep or slept in a usp (including now)? No 05/12/2023 Sex and Gender Information Value Date Recorded Sex Assigned at Male 03/31/2024 8:58 AM ROOMING HOUSE KEEPER Legal Sex Male 8:01 PM CDT Gender [...] HOSPITAL Medical Group Family & Internal Medicine [address] [phone] Sandi Alfaro APNP [address] [place] [address] documented as of this encounter Visit Diagnoses Not on filedocumented in this encounter Additional Health Concerns Assessment Noted Time PHQ-9 Depression Total Score: 0 05/21/19 24 11:21 AM CDT documented as of this encounter Care Teams Die Cast Operator Relationship Specialty Start Date End Date Sandi Alfaro APNP Family & Internal Medicine [address] [address] PCP - General ADVANCED PRACTICE [place] TAX ASSESSOR 04/28/17 Cheryl Huston team assistant (Ambulatory) REGISTERED NURSE 03/23/19 documented as of this encounter
--- OUTSIDE RECORDS SUMMARY | 2024-07-12 14:03 | XMS_ITS | Encounter Summary ---
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 Legal Sex Male 8:01 PM CDT Gender [...] Description 07/20/2024 8:40 AM CDT Office Visit [facility] Medical [facility] Family & Internal Medicine [address] [phone] Sandi Alfaro APNP [address] [place] [address] documented as of this encounter Visit Diagnoses Not on filedocumented in this encounter Additional Health Concerns Infection Onset Date Last Indicated Resolved Time COVID-19 Rule Out 05/12/2023 05/12/2023 05/13/2023 12:01 AM CDT Influenza - Seasonal 05/14/2023 05/14/2023 024 12:32 AM CDT Assessment Noted Time PHQ-9 Depression Total Score: 13 023 10:48 AM CDT documented as of this encounter Care Teams Candy Dipper Relationship Specialty Start Date End Date Sandi Alfaro APNP Family & Internal Medicine [address] [address] PCP - General ADVANCED PRACTICE DIRECTOR OF CLOUD SERVICES 04/28/17 Cheryl Huston, turner in (Ambulatory) REGISTERED NURSE 03/23/19 documented as of this encounter
--- OUTSIDE RECORDS SUMMARY | 2024-07-12 14:03 | XMS_ITS | Encounter Summary ---
Author Organization [facility] Address [address] [place] [address] Care Team Providers Care Gem Expert Name Role Phone Sandi Alfaro Primary Care Provider + Encounter Details Date Type Department Care Team (Late st Contact Info) Description 07/08/2024 Orders Only [facility] Medical Group Cardiology [address] [place] [address] Julio Richardson MD [address] [place] [address] Social History Tobacco Use Types Packs/Day Years Used Date Smoking Tobacco: Some Days Cigarettes 0.3 15 Smokeless Tobacco: Never Alcohol Use Standard Drinks/Week Comments Yes 0 (1 standard drink = 0.6 oz pur e alcohol) Sex and Gender Information Value Date Recorded Sex Assigned at Not on file Legal Sex Male 3:15 AM FIELD SALES AGENT Gender Identity Male 09/03/2018 6:22 AM CDT Sexual Orientation Straight 09/03/2018 6: 22 AM CDT documented as of this encounter Plan of Treatment Not on file documented as of this encounter Procedures Procedure Name Priority Date/Time Associated Diagnosis Comments CARDIOLOGY DOCUMENT SCAN Routine 025 12:37 PM CDT documented in this encounter Results * Cardiology Document Scan (07/05/2024 12:37 PM CDT) Anatomical Region Laterality Modality Other Julio Richardson MD CV CARDIAC SERVICES PRO CEDURES Final Result documented in this encounter Visit Diagnoses Not on filedocumented in this encounter Care Teams Gem Expert Relationship Specialty Start Date End Date Sandi Alfaro PA PCP - General Nurse Practitioner 08/21/17 documented as of this encounter
--- OUTSIDE RECORDS SUMMARY | 2024-07-12 14:03 | XMS_ITS | Clinical Summary ---
Author Organization [facility] Address [address] [place] [address] Care Team Providers Care Carousel Operator Name Role Phone Sandi Alfaro Primary Care Provider [phone] Cheryl Huston RN Unavailable Unavailable Allergies No known active allergies Medications aspirin 81 MG tablet Take 1 tablet (81 mg total) by mouth daily. 015 Active nitroglycerin 0.[address] 1 tablet (0.4 mg total) under the tongue every 5 (five) minutes as needed for Chest Pain. 019 Active rivaroxaban 2.5 MG tablet Take 1 tablet (2.5 mg total) by mouth 2 (two) times daily. Active atorvastatin 80 MG tablet Take 1 tablet (80 mg total) by mouth daily. 021 Active FLUTICASONE PROPIONATE 50 MCG/ACT nasal sprayIndications: Acute sinusitis SPRAY ONE SPRAY INTO EACH NOSTRIL ONCE DAILY 16 mL 1 021 Active LORATADINE 10 MG tabletIndications :Seasonal allergic rhinitis due to pollen TAKE 1 TABLET BY MOUTH EVERY DAY 30 tablet 32 021 Active isosorbide mononitrate ER 60 MG 24 hr tablet Take 2 tablets (120 mg total) by mouth daily. 022 Active montelukast (SINGULAIR) 10 MG tabletIndications :Chronic cough Take 1 tablet (10 mg total) by mouth nightly at bedtime. 90 tablet 3 022 Active Glucose Blood (ONETOUCH VERIO) test stripIndications: Type 2 diabetes mellitus without complication, without long-term current use of insulin ([facility]) USE 1 STRIP BY OTHER ROUTE 2 (TWO) TIMES A DAY. 100 strip Active tamsulosin (FLOMAX) 0.4 MG Cap Take 1 capsule (0.4 mg total) by mouth nightly at bedtime. Active vitamin B-12 (CYANOCOBALAMIN) 1000 MCG tablet Take 1 tablet (1,000 mcg total) by mouth daily. 30 tablet 024 Active traMADol (ULTRAM) 50 MG tabletIndications :Acute Pain < 3 Day Supply Take 1 tablet (50 mg total) by mouth every 6 (six) hours as needed for Pain. Indications: Acute Pain < 3 Day Supply 10 tablet Active CPAP DEVICE, DME,Indications:O bstructive sleep apnea syndrome 1 Device by Does not apply route nightly at bedtime. This order includes all CPAP supplies as well 1 Device Active HYDROcodone-aceta minophen (NORCO) 5-325 MG tablet take 1 tablet by mouth every 6 hours as needed for pain for 3 days Active dulaglutide (TRULICITY) 3 MG/0.5ML injectionIndicati ons:Dyslipidemia associated with type 2 diabetes mellitus ([facility]) Inject 3 mg into the skin once a week. 6 mL 11 Active meclizine (ANTIVERT) 25 MG tablet TAKE 1 TABLET BY MOUTH THREE TIMES A DAY NEEDED FOR DIZZINES Active ondansetron (ZOFRAN-ODT) 4 MG disintegrating tabletIndications :Vertigo Take 1 tablet (4 mg total) by mouth every 8 (eight) hours as needed for Nausea. 30 tablet 025 Active losartan (COZAAR) 100 MG tabletIndications :Hypertensive heart disease with congestive heart failure, unspecified heart failure type ([facility]),Primary hypertension TAKE 1 TABLET BY MOUTH EVERY DAY 90 tablet 1 025 Active albuterol sulfate HFA 108 (90 Base) MCG/ACT inhaler INHALE 2 PUFFS EVERY 4 - 6 HOURS NEEDED FOR SHORTNESS OF BREATH OR WHEEZING FOR 30 DAYS Active buPROPion SR (WELLBUTRIN SR) 150 MG 12 hr tabletIndications :Mixed anxiety depressive disorder TAKE 1 TABLET BY MOUTH TWICE A DAY 180 tablet 1 025 Active amLODIPine (NORVASC) 10 MG tabletIndications :Primary hypertension TAKE 1 TABLET BY MOUTH EVERY DAY 90 tablet 1 025 Active omeprazole (PRILOSEC) 40 MG capsuleIndication s:Gastroesophagea l reflux disease without esophagitis TAKE 1 CAPSULE (40 MG TOTAL) BY MOUTH DAILY. 90 capsule 1 025 Active JARDIANCE 10 MG tabletIndications :Type 2 diabetes mellitus without complication, without long-term current use of insulin ([facility]) TAKE 1 TABLET BY MOUTH EVERY DAY 90 tablet 025 Active naloxone (NARCAN) 4 MG/0.1ML nasal sprayIndications: Mixed anxiety depressive disorder 1 spray by Nasal route as needed for Opioid reversal. may repeat every 2 to 3 minutes in alternating nostrils until medical assistance becomes available 1 each 025 2025 Active carvedilol (COREG) 12.5 MG tablet Take 1 tablet (12.5 mg total) by mouth every 12 (twelve) hours. 025 Active clopidogrel (PLAVIX) 75 MG tablet Take 1 tablet (75 mg total) by mouth every morning. Active furosemide (LASIX) 40 MG tablet Take 1 tablet (40 mg total) by mouth daily. Active budesonide-glycop yrrolate-formoter ol (BREZTRI AEROSPHERE) 160-9-4.8 MCG/ACT inhalerIndication s:Pulmonary emphysema, unspecified emphysema type ([facility]) Inhale 2 puffs into the lungs 2 (two) times daily. 10.7 g 5 025 Active ALPRAZolam (XANAX) 0.25 MG tabletIndications :Mixed anxiety depressive disorder,Insomnia Take 1 tablet (0.25 mg total) by mouth nightly at bedtime. TAKE 1 TABLET (0.25 MG TOTAL) BY MOUTH AT NIGHT FOR SLEEP Strength: 0.25 mg 30 tablet 025 Active metFORMIN (GLUCOPHAGE) 1000 MG tabletIndications :Diabetic foot ([facility]) TAKE 1 TABLET BY MOUTH TWICE A DAY 180 tablet 025 Active Fluticasone-Umecl idin-Vilant (TRELEGY ELLIPTA) 200-62.5-25 MCG/ACT AEROSOL POWDER, BREATH ACTIVATEDIndicati ons:Mild emphysema (CMS/HCC HHS/HCC) Inhale 1 puff into the lungs daily as needed (shortness of breath). 024 2024 Discontinued(D uplicate Med) fluticasone-salme terol (ADVAIR HFA) 115-21 MCG/ACT inhalerIndication s:Mild emphysema (CMS/HCC HHS/HCC) Inhale 2 puffs into the lungs 2 (two) times daily. 12 g 3 024 2024 Discontinued(F ormulary change) metFORMIN (GLUCOPHAGE) 1000 MG tabletIndications :Diabetic foot (CMS/HCC HHS/HCC) TAKE 1 TABLET BY MOUTH TWICE A DAY 180 tablet 1 024 2024 Discontinued ondansetron (ZOFRAN-ODT) 4 MG disintegrating tabletIndications :Nausea Take 1 tablet (4 mg total) by mouth every 8 (eight) hours as needed. FOR NAUSEA 10 tablet 024 2024 Discontinued(D uplicate Med) ALPRAZolam (XANAX) 0.25 MG tabletIndications :Mixed anxiety depressive disorder,Insomnia Take 1 tablet (0.25 mg total) by mouth nightly at bedtime. TAKE 1 TABLET (0.25 MG TOTAL) BY MOUTH AT NIGHT FOR SLEEP Strength: 0.25 mg 30 tablet 025 2024 Discontinued(R eorder) Fluticasone-Umecl idin-Vilant (TRELEGY ELLIPTA) 100-62.5-25 MCG/ACT AEROSOL POWDER, BREATH ACTIVATEDIndicati ons:Unilateral emphysema (CMS/HCC HHS/HCC) Inhale 1 Inhalation into the lungs daily. 60 each 5 025 2024 Discontinued(F ormulary change) Active Problems Problem Noted Date Diagnosed Date Thrombocytopenia 03/31/2024 Polyneuropathy associated with underlying diseas e (HHS/HCC) 12/16/2023 Morbid (severe) obesity due to excess calories 0 05/15/2022 Body mass index (BMI) 40.0-44.9, adult Acute hyperglycemia 05/17/2021 Anxiety 05/17/2021 Arthritis 05/17/2021 Atypical syncope 05/17/2021 Calculus of left ureter 05/17/2021 Eczema 05/17/2021 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/17/2021 residential current use of anticoagulant therapy 0 05/17/2021 Peripheral neuropathy 05/17/2021 Rectal polyp 05/17/2021 Swelling of left lower extremity 05/17/2021 Tear of medial meniscus of knee 05/17/2021 Tobacco abuse 05/17/2021 Pain due to ureteral stent 05/17/2021 Cigarette nicotine dependence without complicati on 03/14/2019 Seasonal allergic rhinitis due to pollen 019 Chronic heart failure with p reserved ejection fraction ([facility]) 11/12/2018 Arthralgia of left hand 11/02/2018 Enchondroma of bone of hand, left 11/02/2018 Carpal tunnel syndrome on left 08/26/2018 Cryptogenic stroke ([facility]) 07/06/2018 Skin lesion of right arm 06/28/2018 Weakness 05/26/2018 Status post placement of implantable loop record er 10/13/2017 Overview (01/13/2018): Overview: [employer] Reveal Loop Recorder. Dx; Cryptogenic Stroke. DOI 10/12/[address] Willoughby. [facility] remote monitoring. TIA (transient ischemic attack) 10/06/2017 Mild emphysema ([facility]) 08/28/2017 Hepatic steatosis 08/28/2017 Memory loss 05/18/2017 Chest pain 04/30/2017 S/P coronary artery stent placement 12/17/2016 Hemorrhoids 10/03/2016 Hearing loss 08/01/2016 Decreased hearing 07/17/2016 Chronic nausea 03/27/2016 Diabetic foot ([facility]) 03/10/2016 Abdominal wall bulge 03/10/2016 CHF (congestive heart failure) ([facility]) 01/14/2016 Peripheral edema 12/19/2015 Tinnitus 11/08/2015 History of kidney stones 10/03/2015 Insomnia 05/07/2015 Chronic cough 03/20/2015 Hypertensive heart disease w ith congestive heart failure ([facility]) 02/20/2015 Overview (01/13/2018): Overview: Hypertensive heart disease with diastolic heart failure Coronary artery disease of n ative artery of [place] heart with stable angina pectoris 02/20/2015 Overview (01/13/2018): Overview: Coronary artery disease involving [place] coronary artery of [place] heart with other form of angina pectoris CVA, old, hemiparesis ([facility]) 02/21/20 15 Overview (01/13/2018): Overview: CVA, old, hemiparesis Dyslipidemia associated with type 2 diabetes mellitus ([facility]) 02/20/2015 Overview (01/13/2018): Overview: DM (diabetes mellitus) Overview: DM type 2 with diabetic dyslipidemia Mixed diabetic hyperlipidemi a associated with type 2 diabetes mellitus ([facility]) 02/20/2015 Overview [...] Overview: HTN (hypertension), benign Cerebrovascular accident (CVA) ([facility]) 08/23/2013 Hyperlipidemia 08/23/2013 Resolved Problems Problem Noted Date Diagnosed Date Resolved Date Left nephrolithiasis 10/07/2017 018 Encounter for screening for lung cancer 04/09/2017 06/28/2018 BMI 45.0-49.9, adult 10/03/2016 023 Morbid obesity 08/13/2016 05/15/2022 Encounter for preventive health examination 08/23/2013 06/28/2018 Encounters Date Type Department Care Team Description 07/06/2024 Telephone [facility] Internal [address] [phone] Sandi Alfaro APNP Medication Request 07/04/2024 Scan [facility] SRVCS Scanned, [facility] Rack Pusher Report (SCAN)* 07/03/2024 Scan [facility] Scanned, [facility] 07/02/2024 Scan [facility] SRVCS Scanned, [facility] 06/30/2024 Telephone [facility] Internal [address] [phone] Sandi Alfaro APNP Advice 06/28/2024 Scan [facility] SRVCS Scanned, [facility] Image (SCAN) 06/21/2024 8:40 AM CDT Office Visit [facility] Internal [address] [phone] Sandi Alfaro APNP TCM 06/21/2024 Telephone [facility] Internal [address] [phone] Sandi Alfaro APNP Medication Problem 06/21/2024 Travel 06/15/2024 Scan [facility] SRVCS Scanned, [facility] MRI (SCAN); Echo (SCAN) 06/14/2024 Scan [facility] SR[facility] Scanned, [facility] CT (SCAN); Image (SCAN) 06/13/2024 Scan [facility]VCS Scanned, [facility] Image (SCAN); Lab (SCAN) 05/31/2024 Telephone [facility] Internal [address] [phone] Sandi Alfaro APNP Medication Request 05/05/2024 Scan [facility] SRVCS Scanned, [facility] 05/03/2024 Scan [facility] SRVCS Scanned, [facility] Rack Pusher Report (SCAN)* 05/02/2024 Scan [facility] INFO [...] [facility] Lab (SCAN); CT (SCAN) from Last 3 Months Immunizations Immunization [...] pur e alcohol) very rarely 6 beers/year [facility] Utilities Answer Date Recorded In the past [...] often do you attend chur ch or scientologist services? Never 05/12/2023 Do you belong to [...] Recorded Patient Health Questionnaire-2 Score 0 03/31/2024 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 Sex Male 8:01 PM CDT Gender [...] Description 07/20/2024 8:40 AM CDT Office Visit [facility] Family & Internal Medicine - [address] [phone] Sandi Alfaro APNP [address] [place] [id number] Health Maintenance Due Date Last Done Comments [...] Vaccine: 50+ Years Completed 06/28/2021 PHQ-2 (Physician [place]) Completed 03/31/2024 Meningococcal B Vaccine Aged Out No l onger eligible based on patient's age to complete this topic Meningococcal Vaccine Aged Out No shyam jose eligible based on patient's age to complete this topic RSV Immunizations Under 20 Months Aged Out No longer eligible based on patient's age to complete this topic Procedures Procedure Name Priority Date/Time Associated Diagnosis Comments HIDE OR SKIN BUFFER 07/04/2024 IMAGE GENERIC 06/28/2024 ECHO GENERIC (SCAN ORDER) 06/15/2024 MRI GENERIC 06/15/2024 CT GENERIC 06/14/2024 IMAGE GENERIC 06/14/2024 OUTSIDE LAB (SCAN ORDER) 06/13/2024 OUTSIDE LAB (SCAN ORDER) 06/13/2024 OUTSIDE PT/INR (SCAN ORDER) 06/13/2024 IMAGE GENERIC 06/13/2024 HIDE OR SKIN BUFFER 05/03/2024 OUTSIDE LAB (SCAN ORDER) Routine 05/01/2024 OUTSIDE LAB (SCAN ORDER) 05/01/2024 IMAGE GENERIC 05/01/2024 DIABETIC RETINOPATHY EXAM (NEGATIVE)(SCAN ORDER) Routine 04/27/2024 CT GENERIC 04/14/2024 OUTSIDE LAB (SCAN ORDER) 04/14/2024 OUTSIDE LAB (SCAN ORDER) 04/14/2024 HEMOGLOBIN, GLYCOSYLATED Routine 02/05/2024 Type 2 diabetes mellitus without complication, without long-term current use of insulin ([facility]/HCC HHS/HCC) LIPID PANEL Routine 05/13/2023 6:00 AM CDT HEPATITIS C ANTIBODY W/RFX TO HCV RNA Routine 06/28/2021 11:22 AM CDT Need for hepatitis C screening test CT CHEST WO CONT LOW DOSE Routine 09/21/2020 10:28 AM CDT Nicotine dependence, cigarettes, with other nicotine-induced disorders COLONOSCOPY GENERIC (SCAN ORDER) Routine 03/28/2015 from Last 3 Months or Most Recently Relevant to Health Maintenance Results * HIDE OR SKIN BUFFER (07/04/2024) Anatomical Region Laterality Modality Other 07/04/2024 [facility] Scanned SCANNING Final Resu lt * IMAGE GENERIC (06/28/2024) Only the most recent of4 resultswithin the time period is included. Anatomical Region Laterality Modality Other 06/28/2024 [facility] Scanned SCANNING Final Resu lt * MRI GENERIC (06/15/2024) Anatomical Region Laterality Modality Other 06/15/2024 us [facility] Scanned SCANNING Final Resu lt * ECHO GENERIC (SCAN ORDER) (06/15/2024) Anatomical Region Laterality Modality Other 06/15/2024 us [facility] Scanned SCANNING Final Resu lt * CT GENERIC (06/14/2024) Only the most recent of2 resultswithin the time period is included. Anatomical Region Laterality Modality Other 06/14/2024 us [facility] Scanned SCANNING Final Resu lt * OUTSIDE PT/INR (SCAN ORDER) (06/13/2024) 06/13/2024 [facility] Scanned SCANNING Final Resu lt * OUTSIDE LAB (SCAN ORDER) (06/13/2024) Only the most recent of6 resultswithin the time period is included. 06/13/2024 [facility] Scanned SCANNING Final Resu lt * HIDE OR SKIN BUFFER (05/03/2024) Anatomical Region Laterality Modality Other 05/03/2024 [facility] Scanned SCANNING Final Resu lt * DIABETIC RETINOPATHY EXAM (NEGATIVE) (04/27/2024) us Doc [facility] Scanned SCANNING Final Resu lt Performing Organization Address City/[facility]/ZIP Co de Phone Number [facility] * HEMOGLOBIN, GLYCOSYLATED (02/05/2024) HGB A1C 6.5 % [facility] 02/05/2024 Sandi [facility] Final Resul t Performing Organization Address [facility]/ZIP Co de Phone Number [facility] [address] [place] [address], [place] * (ABNORMAL) LIPID PANEL (05/13/2023 6:00 AM CDT) CHOLESTEROL 87 <200 MG/DL 05/13/2023 7:18 AM CDT [facility] TRIGLYCERIDES 213(H) <150 MG/DL 05/13/2023 7:18 AM CDT [facility] HDL 24(L) >40.0 MG/DL 05/13/2023 7:18 AM CDT [facility] LDL (CALCULATED) 20 <100 MG/DL 05/13/2023 7:18 AM CDT [facility] NON HDL CHOLESTEROL 63 <130 MG/DL 05/13/2023 7:18 AM CDT [facility] CHOL/HDL RATIO 3.6 0.0 - 4.5 05/13/2023 7:18 AM CDT [facility] VLDL CALCULATION 43 5 - 55 MG/DL 05/13/2023 7:18 AM CDT [facility] LIPID INTERPRETATION 05/13/2023 7:18 AM T [facility] Comment: [facility] REPORT RECOMMENDATIONS: ADULT CHILD LOW RISK: CHOLESTEROL <200 <170 TRIGLYCERIDE <150 --- HDL >=60 --- LDL <100 <110 BORDERLINE: CHOLESTEROL 200-239 170-199 TRIGLYCERIDE 150-199 --- HDL 40-59 --- LDL 100-159 110-129 HIGH RISK: CHOLESTEROL >=240 >=200 TRIGLYCERIDE >=200 --- HDL <40 --- LDL >=160 >=130 05/13/2023 6:00 AM CDT us Ayanna Bellamy MD LABORATORY Final Re sult [id number]|2024-07-12 14:13:02|2024-07-12 14:13:02|PC.NURSE||||"calling poison control at this time prior to administering any medications. "
--- OUTSIDE RECORDS SUMMARY | 2024-07-12 14:03 | XMS_ITS | Encounter Summary ---
Author Organization [facility] Address [address] [place] [address] Care Team Providers Care Software Administrator Name Role Phone Sandi Alfaro Primary Care Provider + Encounter Details Date Type Department Care Team (Late st Contact Info) Description 07/11/2024 Telephone [facility] Cardiology [address] [place] [address] [place] [address] [place] [id number] Social History Tobacco Use Types Packs/Day Years Used Date Smoking Tobacco: Some Days Cigarettes 0.3 15 Smokeless Tobacco: Never Alcohol Use Standard Drinks/Week Comments Yes 0 (1 standard drink = 0.6 oz pur e alcohol) Sex and Gender Information Value Date Recorded Sex Assigned at Not on file Legal Sex Male 3:15 AM [employer] Gender Identity Male 09/03/2018 6:22 AM CDT Sexual Orientation Straight 09/03/2018 6: 22 AM CDT documented as of this encounter Miscellaneous Notes * Telephone Encounter - Harini Mann RN - 07/12/2024 1:26 PM CDT Spoke with pt, pt states he accidentally took 4-5 Entresto and 2-3 Furosemide by accident when he was trying to reorganize his pill box after his office visit with [facility] this afternoon. Pt advised to goto the ER, pt advised not to drive and to have someone take him or call an ambulance. Pt verbalizesunderstanding. * Telephone Encounter - Jil Rueda - 07/12/2024 1:12 PM CDT Pt called stating he accidentally took the medications he was told to stop and he is concerned about his BP dropping because of the one medication and he wants to know if he is okay to just stay homeor if he needs to go to the ER. Please advise pt would like a call back thank you Contact: * Telephone Encounter - Harini Mann RN - 07/11/2024 10:57 AM CDT Spoke with pt, pt states he continues to feel tired, low bp 89/70 today, having difficulty sleeping. Thinks this may be related to new medications prescribed in the hospital. Entresto already stopped, pt did not have any improvement in symptoms. Will move pts f/u with [facility] to tomorrow to discuss further. Pt verbalizes understanding and appreciative. * Telephone Encounter - Jil Rueda - 07/11/2024 10:23 AM CDT Pt requesting a call back to discuss some issues he is having with the spironolactone and ranolazine. Please advise the pt was prescribed these while in the hospital. Thank you Contact: documented in this encounter Plan of Treatment Not on file documented as of this encounter Visit Diagnoses Not on filedocumented in this encounter Care Teams Software Administrator Relationship Specialty Start Date End Date Sandi Alfaro PA PCP - General Nurse Practitioner 08/21/17 documented as of this encounter
--- OUTSIDE RECORDS SUMMARY | 2024-07-12 14:03 | XMS_ITS | Patient Health Record ---
Author Organization [facility] Address [address] [place], [place] [address] Care Team Providers Care Residential Construction Instructor Name Role Phone PIETER WALSH Unavailable [phone] Sandi Alfaro Unavailable Unavailable Allergies No Known Allergies Reason For Referral No Information Medications Medication SIG (Take, Route, Frequency, Duration) Notes Start Date End Date Status clotrimazole 10 MG/ML Topical Cream CUTANEOUS clotrimazole 10 MG/ML Topical CreamOriginal Medicationclotrimazole 10 MG/ML Topical Cream *Reorder from [employer] for eRx and Interaction Alerts* 7 Active betamethasone 0.5 MG/ML / clotrimazole 10 MG/ML Topical Cream CUTANEOUS betamethasone 0.5 MG/ML / clotrimazole 10 MG/ML Topical CreamOriginal Medicationbetamethasone 0.5 MG/ML / clotrimazole 10 MG/ML Topical Cream *Reorder from [employer] for eRx and Interaction Alerts* 7 Active Augmented betamethasone 0.5 MG/ML Topical Cream CUTANEOUS Augmented betamethasone 0.5 MG/ML Topical CreamOriginal MedicationAugmented betamethasone 0.5 MG/ML Topical Cream *Reorder from [employer] for eRx and Interaction Alerts* 7 Active clobetasol propionate 0.0005 MG/MG Topical Ointment [Temovate] CUTANEOUS clobetasol propionate 0.0005 MG/MG Topical Ointment [Temovate]Original Medicationclobetasol propionate 0.0005 MG/MG Topical Ointment [Temovate] *Reorder from [employer] for eRx and Interaction Alerts* 7 Active betamethasone 0.5 MG/ML / clotrimazole 10 MG/ML Topical Cream [Lotrisone] CUTANEOUS betamethasone 0.5 MG/ML / clotrimazole 10 MG/ML Topical Cream [Lotrisone]Original Medicationbetamethasone 0.5 MG/ML / clotrimazole 10 MG/ML Topical Cream [Lotrisone] *Reorder from [employer] for eRx and Interacti 7 Active Immunizations [...] 3 years or older Unknown 12/23/2022 Administered [employer] Covid-19 Vac cine 1st dose Unknown 12/31/2020 Administered Moderna Covid-19 Vaccine 1st dose Unknown 04/13/2020 Ad ministered Moderna Covid-19 Vaccine 1st dose Unknown 05/11/2020 Ad ministered Vital Signs Height-cm 182.88 cm 06/27/2024 Weight-kg 149.69 kg 06/27/2024 Height 72.00 in 06/27/2024 Weight 330 lbs 06/27/2024 BMI 44.75 kg/m2 06/27/2024 Encounters Encounter Location Date Provider Diagnosis [facility] [address] [place], [place] [id number] 08/24/2023 PIETER SNOOK Tinea unguium B35.1 ; Pain in right toe(s) M79.674 ; Pain in left toe(s) M79.675 ; Atherosclerosis of cherokee arteries of extremities with intermittent claudication, bilateral legs I70.213 and Type 2 diabetes mellitus with other circulatory complications E11.59 [facility] [address] [place] [id number] 09/14/2023 PIETER SNOOK Nondisplaced unspeci fied fracture of right lesser toe(s), subsequent encounter for fracture with routine healing S92.504D and Pain in left toe(s) M79.675 [facility] [address] [place] [id number] 11/09/2023 PIETER SNOOK Tinea unguium B35.1 ; Pain in right toe(s) M79.674 ; Pain in left toe(s) M79.675 ; Atherosclerosis of cherokee arteries of extremities with intermittent claudication, bilateral legs I70.213 and Type 2 diabetes mellitus with other circulatory complications E11.59 [facility] [address] [place] [id number] 01/25/2024 PIETER SNOOK Tinea unguium B35.1 ; Pain in right toe(s) M79.674 ; Pain in left toe(s) M79.675 ; Atherosclerosis of cherokee arteries of extremities with intermittent claudication, bilateral legs I70.213 and Type 2 diabetes mellitus with other circulatory complications E11.59 [facility] [address] [place] [address] [id number] 06/27/2024 PIETER SNOOK Tinea unguium B35.1 ; Pain in right toe(s) M79.674 ; Pain in left toe(s) M79.675 ; Atherosclerosis of cherokee arteries of extremities with intermittent claudication, bilateral legs I70.213 and Type 2 diabetes mellitus with other circulatory complications E11.59 [facility] [address] [place] [address] [id number] 08/31/2023 PIETER SNOOK Nondisplaced unspeci fied fracture of unspecified lesser toe(s), initial encounter for closed fracture S92.506A and Pain in left foot M79.672 [facility] [address] [place], [place] [id number] 03/28/2024 PIETER WALSH Tinea unguium B35.1 ; Pain in right toe(s) M79.674 ; Pain in left toe(s) M79.675 ; Atherosclerosis of cherokee arteries of extremities with intermittent claudication, bilateral [...] toe(s) (ICD-10 - M79.675) 08/24/2023 Atherosclerosis of cherokee arteries of extremities with intermittent claudication, bilateral legs (ICD-10 - I70.213) 01/25/2024 Pain in left toe(s) (ICD-10 - M79.675) 03/28/2024 Atherosclerosis of cherokee arteries of extremities with intermittent claudication, bilateral legs (ICD-10 - I70.213) 06/27/2024 Pain in left toe(s) (ICD-10 - M79.675) 06/27/2024 Atherosclerosis of cherokee arteries of extremities with intermittent claudication, bilateral legs (ICD-10 - I70.213) 01/25/2024 Atherosclerosis of cherokee arteries of extremities with intermittent claudication, bilateral [...] the Amputation Prevention Guide. 11/09/2023 Atherosclerosis of cherokee arteries of extremities with intermittent claudication, bilateral [...] Of Treatment Next Appt Details Provider Name:PIETER JILLIAN, 08:10:00 AM, [address], [address], [phone], Insurance Providers Payer Name Payer Address Payer Phone Subscriber Number Group Number Insured Name Patient Relationship to Insured Coverage Start Date Coverage End Date Medicare Part B [facility] [address] [place] [phone] [id number] KLAUDIA HALEY Self - patient is the insured
--- OUTSIDE RECORDS SUMMARY | 2024-07-12 14:03 | XMS_ITS | Encounter Summary ---
Author Organization [facility] Address [address] [place] [address] Care Team Providers Care Consumer Services Advisor Name Role Phone Sandi Alfaro Primary Care Provider [phone] Cheryl Huston RN Unavailable Unavailable Reason for Visit * Reason Comments Saw Runner Report (SCAN)* Encounter Details Date Type Department Care Team (Late st Contact Info) Description 07/04/2024 Scan HEALTH INFO [facility] Scanned, Doc Med Group Saw Runner Report (SCAN)* Social History Tobacco Use Types Packs/Day Years Used Date Smoking Tobacco: Former Cigarettes 0.3 40 Q uit: 02/17/2024 Smokeless Tobacco: Never Comments:currently smoking 1 -2 cigarettes a day Alcohol Use Standard Drinks/Week Comments Yes 0 (1 standard drink = 0.6 oz pur e alcohol) very rarely 6 beers/year [facility] Utilities Answer Date Recorded In the past 12 months has [employer] gas, oil, or water [employer] threatened to shut off services in your [...] often do you attend chur ch or druze services? Never 05/12/2023 Do you belong to any clubs o r organizations such as amish groups, unions, fraternal or athletic groups, or [...] Patient Health Questionnaire-2 Score 0 03/31/2024 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 Legal Sex Male 8:01 PM CDT Gender [...] Description 07/20/2024 8:40 AM CDT Office Visit [facility] Family & Internal Medicine [facility] [address] [place] [address] Sandi Alfaro APNP [address] [place] [address] documented as of this encounter Procedures Procedure Name Priority Date/Time Associated Diagnosis Comments ENGRAVER STEEL PLATE 07/04/2024 documented in this encounter Results * ENGRAVER STEEL PLATE (07/04/2024) Anatomical Region Laterality Modality Other 07/04/2024 us Doc Med Group Scanned SCANNING Final Resu lt documented in this encounter Visit Diagnoses Not on filedocumented in this encounter Additional Health Concerns Assessment Noted Time PHQ-9 Depression Total Score: 0 05/21/19 24 11:21 AM CDT documented as of this encounter Care Teams Consumer Services Advisor Relationship Specialty Start Date End Date Sandi Alfaro APNP Family & Internal Medicine [address] [address] PCP - General ADVANCED PRACTICE TRANSFER CAR OPERATOR DRIER 04/28/17 Cheryl Huston modern greek studies professor (Ambulatory) REGISTERED NURSE 03/23/19 documented as of this encounter
--- NOTE | 2024-07-12 14:30 | PC.NURSE ---
Spoke with poison control at this time, spoke with Win YOON and Muriel from pharmacy. they stated that the biggest concern is the ranolazine and risk for torsades. to monitor with q2h EKGS. as well as serial magnesium and potassium levels and to maintain them at the high level of normal. inquired about giving aspirin with the medications he overtook, they stated that aspirin can decrease effectiveness of spironolactone so it would be beneficial. suggests testing tylenol and aspirin levels on top of basic labs ordered. case number for the patient is [id number] peak of ranolazine will be 3-5 hours after ingestion, and they recommend monitoring the patient for 7-10 hours
[2024-07-12] MEDS: ASPIRIN 81 MG CHEWABLE TABLET 324 MG PO (14:58)
[2024-07-12 15:21] LABS: Basophils Percent Auto 0.2 % (0.2-1.2); Eosinophils Absolute Auto 0.2 K/mm3 (0-0.3); Eosinophils Percent Auto 1.8 % (0-4.4); Hematocrit 43.9 % (42.0-52.0); Hemoglobin 14.6 g/dL (14.0-18.0); Immature Granulocyte Absolute 0.02 K/mm3 (0.00-0.031); Immature Granulocyte Percent A 0.2 % (0-0.5); Lymphocytes Percent Auto 14.7 % (18.3-44.2); Mean Corpuscular HGB Conc 33.3 g/dl (32-36); Mean Corpuscular Hemoglobin 29.8 pg (26-34); Mean Corpuscular Volume 89.6 fl (80-100); Mean Platelet Volume 11.3 fl (7.4-10.4); Monocytes Absolute Auto 0.7 K/mm3 (0.1-0.6); Monocytes Percent Auto 8.9 % (2.6-8.5); Neutrophils Absolute Auto 6.1 K/mm3 (1.3-6.7); Neutrophils Percent Auto 74.2 % (45.5-73.1); Platelet Count Result 142 k/mm3 (150-375); Red Cell Distribution Width 13.7 % (11.5-14.5); White Blood Count 8.2 K/mm3 (4.5-10.0)
[2024-07-12 15:33] LABS: Partial Thromboplastin Time 29.4 Seconds (22.3-36.8); Prothrombin Time 13.9 Seconds (11.1-14.7)
[2024-07-12 15:46] LABS: Alanine Aminotransferase 53 U/L (6-50); Albumin Level 4.7 g/dL (3.5-5.1); Alkaline Phosphatase 71 U/L (38-126); Anion Gap 14 mmol/L (4-12); Aspartate Amino Transferase 40 U/L (17-59); Bilirubin,Total 0.6 mg/dL (0.2-1.3); Blood Urea Nitrogen 24 mg/dL (9-20); Calcium 9.1 mg/dL (8.4-10.2); Carbon Dioxide 21 mmol/L (22-30); Chloride 102 mmol/L (98-107); Estimated CRCL calculation 59 ml/min; Estimated Glomerular Filt Rate 47; Glucose 185 mg/dL (65-110); Lipase 161 U/L (23-300); Magnesium 1.9 mg/dL (1.6-2.3); Potassium 4.1 mmol/L (3.4-5.0); Sodium 137 mmol/L (137-145)
[2024-07-12 15:46] LABS: Acetaminophen < 10 ug/mL (10-30); Salicylate < 1.0 mg/dL (2-20)
[2024-07-12 15:58] LABS: Troponin I < 0.012 ng/mL (0.000-0.034)
--- NOTE | 2024-07-12 16:00 | ECG_ITS ---
Test Date: 2024-07-12 17:06:17 Measurements Intervals [place] Rate: 81 P: 24 NH: 162 QRS: 43 QRSD: 171 T: 29 QT: 418 QTc: 488 Interpretive Statements SINUS RHYTHM RIGHT BUNDLE BRANCH BLOCK [120+ ms QRS DURATION, UPRIGHT V1, 40+ ms S IN I/aVL/V4/V5/V6] Compared to ECG 07/12/2024 14:01:56 No significant changes Electronically Signed On 07-13-2024 11:48:34 CDT by Julio Richardson M.D.
--- OUTSIDE RECORDS SUMMARY | 2024-07-12 16:58 | XMS_ITS | Encounter Summary ---
Author Organization [facility] Address [address] [place] [address] Care Team Providers Care Production Supv Name Role Phone Sandi Alfaro Primary Care Provider + Encounter Details Date Type Department Care Team (Late st Contact Info) Description 07/08/2024 Orders Only [facility] Cardiology [address] [place] [address] Julio Richardson MD [address] [place] [address] Social History Tobacco Use Types Packs/Day Years Used Date Smoking Tobacco: Some Days Cigarettes 0.3 15 Smokeless Tobacco: Never Alcohol Use Standard Drinks/Week Comments Yes 0 (1 standard drink = 0.6 oz pur e alcohol) Sex and Gender Information Value Date Recorded Sex Assigned at Not on file Legal Sex Male 3:15 AM PLAYGROUND ATTENDANT Gender Identity Male 09/03/2018 6:22 AM [...] on filedocumented in this encounter Care Teams Production Supv Relationship Specialty Start Date End Date Sandi Alfaro PA PCP - General Nurse Practitioner 08/21/17 documented as of this encounter
--- OUTSIDE RECORDS SUMMARY | 2024-07-12 16:58 | XMS_ITS | Clinical Summary ---
Author Organization [facility] Address [address] [place] [address] Care Team Providers Care Shaft Sinker Name Role Phone Sandi Alfaro Primary Care Provider [phone] Cheryl Huston RN Unavailable Unavailable Allergies No [...] without long-term current use of insulin ([facility]) USE 1 STRIP BY OTHER ROUTE 2 [...] associated with type 2 diabetes mellitus ([facility]) Inject 3 mg into the skin once [...] heart failure, unspecified heart failure type ([facility]),Primary hypertension TAKE 1 TABLET BY MOUTH EVERY [...] without long-term current use of insulin ([facility]) TAKE 1 TABLET BY MOUTH EVERY DAY [...] MCG/ACT inhalerIndication s:Pulmonary emphysema, unspecified emphysema type ([facility]) Inhale 2 puffs into the lungs 2 (two) times daily. 10.7 g 5 025 Active ALPRAZolam (XANAX) 0.25 MG tabletIndications :Mixed anxiety depressive disorder,Insomnia Take 1 tablet (0.25 mg total) by mouth nightly at bedtime. TAKE 1 TABLET (0.25 MG TOTAL) BY MOUTH AT NIGHT FOR SLEEP Strength: 0.25 mg 30 tablet 025 Active metFORMIN (GLUCOPHAGE) 1000 MG tabletIndications :Diabetic foot ([facility]) TAKE 1 TABLET BY MOUTH TWICE A [...] 05/17/2021 Eczema 05/17/2021 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/17/2021 long-term current use of anticoagulant therapy 0 05/17/2021 Peripheral neuropathy 05/17/2021 Rectal polyp 05/17/2021 Swelling of left lower extremity 05/17/2021 Tear of medial meniscus of knee 05/17/2021 Tobacco abuse 05/17/2021 Pain due to ureteral stent 05/17/2021 Cigarette nicotine dependence without complicati on 03/14/2019 Seasonal allergic rhinitis due to pollen 019 Chronic heart failure with p reserved ejection fraction ([facility]) 11/12/2018 Arthralgia of left hand 11/02/2018 Enchondroma of bone of hand, left 11/02/2018 Carpal tunnel syndrome on left 08/26/2018 Cryptogenic stroke ([facility]) 07/06/2018 Skin lesion of right arm 06/28/2018 Weakness 05/26/2018 Status post placement of implantable loop record er 10/13/2017 Overview (01/13/2018): Overview: [employer] Reveal Loop Recorder. Dx; Cryptogenic Stroke. DOI 10/12/[address] Willoughby. [facility] remote monitoring. TIA (transient ischemic attack) 10/06/2017 Mild emphysema ([facility]) 08/28/2017 Hepatic steatosis 08/28/2017 Memory loss 05/18/2017 Chest pain 04/30/2017 S/P coronary artery stent placement 12/17/2016 Hemorrhoids 10/03/2016 Hearing loss 08/01/2016 Decreased hearing 07/17/2016 Chronic nausea 03/27/2016 Diabetic foot ([facility]) 03/10/2016 Abdominal wall bulge 03/10/2016 CHF (congestive heart failure) ([facility]) 01/14/2016 Peripheral edema 12/19/2015 Tinnitus 11/08/2015 History of kidney stones 10/03/2015 Insomnia 05/07/2015 Chronic cough 03/20/2015 Hypertensive heart disease w ith congestive heart failure ([facility]) 02/20/2015 Overview (01/13/2018): Overview: Hypertensive heart disease with diastolic heart failure Coronary artery disease of n ative artery of [place] heart with stable angina pectoris 02/20/2015 Overview (01/13/2018): Overview: Coronary artery disease involving [place] coronary artery of [place] heart with other form of angina pectoris CVA, old, hemiparesis ([facility]) 02/21/20 15 Overview (01/13/2018): Overview: CVA, old, hemiparesis Dyslipidemia associated with type 2 diabetes mellitus ([facility]) 02/20/2015 Overview (01/13/2018): Overview: DM (diabetes mellitus) Overview: DM type 2 with diabetic dyslipidemia Mixed diabetic hyperlipidemi a associated with type 2 diabetes mellitus ([facility]) 02/20/2015 Overview (05/17/2021): DM type 2 with [...] Overview: HTN (hypertension), benign Cerebrovascular accident (CVA) ([facility]) 08/23/2013 Hyperlipidemia 08/23/2013 Resolved Problems Problem Noted Date Diagnosed Date Resolved Date Left nephrolithiasis 10/07/2017 018 Encounter for screening for lung cancer 04/09/2017 06/28/2018 BMI 45.0-49.9, adult 10/03/2016 023 Morbid obesity 08/13/2016 05/15/2022 Encounter for preventive health examination 08/23/2013 06/28/2018 Encounters Date Type Department Care Team Description 07/06/2024 Telephone [facility] Internal [address] [phone] Sandi Alfaro APNP Medication Request 07/04/2024 Scan [facility] SRVCS Scanned, [facility] Sheriff'S Sergeant Report (SCAN)* 07/03/2024 Scan [facility] SRVCS Scanned, Doc Med [facility] 07/02/2024 Scan [facility] SRVCS Scanned, Doc Med Group 06/30/2024 Telephone [facility] Internal [address] [phone] Sandi Alfaro APNP Advice 06/28/2024 Scan [facility] SRVCS Scanned, [facility] Image (SCAN) 06/21/2024 8:40 AM CDT Office Visit [facility] Internal [address] [phone] Sandi Alfaro APNP TCM 06/21/2024 Telephone [facility] Internal [address] [address] Sandi Alfaro APNP Medication Problem 06/21/2024 Travel 06/15/2024 Scan [facility] SRVCS Scanned, [facility] MRI (SCAN); Echo (SCAN) 06/14/2024 Scan [facility] SRVCS Scanned, Doc Med Group CT (SCAN); Image (SCAN) 06/13/2024 Scan [facility] SRVCS Scanned, Doc [facility] Image (SCAN); Lab (SCAN) 05/31/2024 Telephone [facility] Internal [address] [address] Sandi Alfaro APNP Medication Request 05/05/2024 Scan [facility] SRVCS Scanned, Doc [facility] 05/03/2024 Scan [facility] SRVCS Scanned, Doc Med Group Sheriff'S Sergeant Report (SCAN)* 05/02/2024 Scan [facility] INFO [...] pur e alcohol) very rarely 6 beers/year [facility] Utilities Answer Date Recorded In [...] often do you attend chur ch or jainism services? 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 Legal Sex Male 8:01 PM CDT Gender [...] Description 07/20/2024 8:40 AM CDT Office Visit [facility] Medical Group Family & Internal Medicine - [address] [phone] Sandi Alfaro APNP [address] [place] [id number] Health Maintenance Due Date Last Done [...] Vaccine: 50+ Years Completed 06/28/2021 PHQ-2 (Physician [place]) Completed 03/31/2024 Meningococcal B Vaccine Aged Out No l onger eligible based on patient's age to complete this topic Meningococcal Vaccine Aged Out No shyam jose eligible based on patient's age to complete this topic RSV Immunizations Under 20 Months Aged Out No longer eligible based on patient's age to complete this topic Procedures Procedure Name Priority Date/Time Associated Diagnosis Comments WATER FILTRATION TECHNICIAN 07/04/2024 IMAGE GENERIC 06/28/2024 ECHO GENERIC (SCAN ORDER) 06/15/2024 MRI GENERIC 06/15/2024 CT GENERIC 06/14/2024 IMAGE GENERIC 06/14/2024 OUTSIDE LAB (SCAN ORDER) 06/13/2024 OUTSIDE LAB (SCAN ORDER) 06/13/2024 OUTSIDE PT/INR (SCAN ORDER) 06/13/2024 IMAGE GENERIC 06/13/2024 WATER FILTRATION TECHNICIAN 05/03/2024 OUTSIDE LAB (SCAN ORDER) Routine 05/01/2024 OUTSIDE LAB (SCAN ORDER) 05/01/2024 IMAGE GENERIC 05/01/2024 DIABETIC RETINOPATHY EXAM (NEGATIVE)(SCAN ORDER) Routine 04/27/2024 CT GENERIC 04/14/2024 OUTSIDE LAB (SCAN ORDER) 04/14/2024 OUTSIDE LAB (SCAN ORDER) 04/14/2024 HEMOGLOBIN, GLYCOSYLATED Routine 02/05/2024 Type 2 diabetes mellitus without complication, without long-term current use of insulin ([facility]) LIPID PANEL Routine 05/13/2023 6:00 AM CDT HEPATITIS C ANTIBODY W/RFX TO HCV RNA Routine 06/28/2021 11:22 AM CDT Need for hepatitis C screening test CT CHEST WO CONT LOW DOSE Routine 09/21/2020 10:28 AM CDT Nicotine dependence, cigarettes, with other nicotine-induced disorders COLONOSCOPY GENERIC (SCAN ORDER) Routine 03/28/2015 from Last 3 Months or Most Recently Relevant to Health Maintenance Results * WATER FILTRATION TECHNICIAN (07/04/2024) Anatomical Region Laterality Modality Other 07/04/2024 us [facility] Scanned SCANNING Final Resu lt * IMAGE GENERIC (06/28/2024) Only the most recent of4 resultswithin the time period is included. Anatomical Region Laterality Modality Other 06/28/2024 [facility] Group Scanned SCANNING Final Resu lt * MRI GENERIC (06/15/2024) Anatomical Region Laterality Modality Other 06/15/2024 us [facility] Group Scanned SCANNING Final Resu lt * ECHO GENERIC (SCAN ORDER) (06/15/2024) Anatomical Region Laterality Modality Other 06/15/2024 us [facility] Group Scanned SCANNING Final Resu lt * CT GENERIC (06/14/2024) Only the most recent of2 resultswithin the time period is included. Anatomical Region Laterality Modality Other 06/14/2024 us Doc [facility] Group Scanned SCANNING Final Resu lt * OUTSIDE PT/INR (SCAN ORDER) (06/13/2024) 06/13/2024 us Doc [facility] Scanned SCANNING Final Resu lt * OUTSIDE LAB (SCAN ORDER) (06/13/2024) Only the most recent of6 resultswithin the time period is included. 06/13/2024 us [facility] Scanned SCANNING Final Resu lt * WATER FILTRATION TECHNICIAN (05/03/2024) Anatomical Region Laterality Modality Other 05/03/2024 us Doc [facility] Scanned SCANNING Final Resu lt * DIABETIC RETINOPATHY EXAM (NEGATIVE) (04/27/2024) us Doc [facility] Group Scanned SCANNING Final Resu lt Performing Organization Address City/[facility]/ZIP Co de Phone Number [facility] ONBASE * HEMOGLOBIN, GLYCOSYLATED (02/05/2024) HGB A1C 6.5 % [facility] 02/05/2024 Sandi LYNCH LABORATORY Final Resul t Performing Organization Address [facility]/ZIP Co de Phone Number [facility] [address] [place] [address], [place] * (ABNORMAL) LIPID PANEL (05/13/2023 6:00 AM CDT) CHOLESTEROL 87 <200 MG/DL 05/13/2023 7:18 AM CDT [facility] TRIGLYCERIDES 213(H) <150 MG/DL 05/13/2023 7:18 AM CDT [facility] HDL 24(L) >40.0 MG/DL 05/13/2023 7:18 AM CDT [facility] LDL (CALCULATED) 20 <100 MG/DL 05/13/2023 7:18 AM CDT [facility] NON HDL CHOLESTEROL 63 <130 MG/DL 05/13/2023 7:18 AM CDT [facility] CHOL/HDL RATIO 3.6 0.0 - 4.5 05/13/2023 7:18 AM CDT [facility] VLDL CALCULATION 43 5 - 55 MG/DL 05/13/2023 7:18 AM T [facility] LIPID INTERPRETATION 05/13/2023 7:18 AM T [facility] Comment: [facility] CONCENSUS REPORT RECOMMENDATIONS: ADULT CHILD LOW RISK: CHOLESTEROL <200 <170 TRIGLYCERIDE <150 --- HDL >=60 --- LDL <100 <110 BORDERLINE: CHOLESTEROL 200-239 170-199 TRIGLYCERIDE 150-199 --- HDL 40-59 --- LDL 100-159 110-129 HIGH RISK: CHOLESTEROL >=240 >=200 TRIGLYCERIDE >=200 --- HDL <40 --- LDL >=160 >=130 05/13/2023 6:00 AM CDT us Ayanna Bellamy MD LABORATORY Final Re sult [id number]|2024-07-12 16:58:00|2024-07-12 16:57:00|XMS_ITS|BKG DAEMON|External Medical Summaries|[id number]|" Encounter Summary Created on: July 12, 2024 Vini Zambrano : 1960 Sex: Male Author Organization [facility] Address [address] [place] [address] Care Team Providers Care Shaft Sinker Name Role Phone Sandi Alfaro CRIS Primary Care Provider Cheryl Huston RN Unavailable Unavailable Encounter Details Date Type Department Care Team (Late st Contact Info) Description 08/18/2023 Eve Message Enc [facility] Medical Group Multispecialty Care - [facility] [address], [address] [place] [address] Eliza, [facility] Provider Results Social History Tobacco Use Types Packs/Day Years Used Date Smoking Tobacco: Every Day Cigarettes 0.3 40 Smokeless Tobacco: Never Comments:currently smoking 2 -3 cigarettes a day Alcohol Use Standard Drinks/Week Comments Yes 0 (1 standard drink = 0.6 oz pur e alcohol) very rarely 6 beers/year [facility] Utilities Answer Date Recorded In the past 12 months has [facility], gas, oil, or water Buddy threatened to shut off services in your [...] How often do you attend chur or jainism services? 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 Legal Sex Male 8:01 PM CDT Gender [...] 10:03 PM Tyrel Gerard RN Active documented in this encounter Plan of Treatment Upcoming Encounters Date Type Department Care Team (Late st Contact Info) Description 07/20/2024 8:40 AM CDT Office Visit [facility] Medical Group Family & Internal Medicine [address] [phone] Sandi Alfaro APNP [facility] [place] [address] documented as of this encounter Visit Diagnoses Not on filedocumented in this encounter Additional Health Concerns Assessment Noted Time PHQ-9 Depression Total Score: 0 05/21/19 24 11:21 AM CDT documented as of this encounter Care Teams Shaft Sinker Relationship Specialty Start Date End Date Sandi Alfaro APNP Family & Internal Medicine [address] [address] PCP - General [employer] ADMINISTRATIVE SUPPORT TECHNICIAN 04/28/17 Cheryl Huston, core setter (Ambulatory) REGISTERED NURSE 03/23/19 documented as of this encounter "
--- OUTSIDE RECORDS SUMMARY | 2024-07-12 16:58 | XMS_ITS | Clinical Summary ---
Author Organization [facility] [address] Address [address] [place] [address] Care Team Providers Care Pathology Collector Name Role Phone Sandi Alfaro Primary Care [...] 24 hr tabletIndicatio ns:Coronary artery disease of [place] artery of [place] heart with stable angina pectoris TAKE 2 [...] Cryptogenic Stroke. DOI 10/12/[address] Willoughby. [employer] remote monitoring. TIA (transient ischemic attack) 10/06/2017 S/P coronary artery stent placement 12/17/2016 Morbid obesity with BMI of 45.0-49.9, adult ([facility]) 08/13/2016 Mixed anxiety depressive disorder 05/01/2015 Overview (06/07/2016): Anxiety and depression Coronary artery disease of n ative artery of [place] heart with stable angina pectoris 02/20/2015 Overview (06/07/2016): Coronary artery disease involving [place] coronary artery of [place] heart with other form of angina pectoris CVA, old, hemiparesis 02/20/2015 Overview (06/07/2016): CVA, old, hemiparesis Mixed diabetic hyperlipidemi a associated with type 2 diabetes mellitus ([facility]) 02/20/2015 Overview (06/07/2016): DM type [...] Description 07/12/2024 11:45 AM CDT Office Visit [facility] Medical [facility] Cardiology [address] [place] [address] [address] [place] [address] [phone] Fernando Modi MD Coronary artery disease of [place] artery of [place] heart with stable angina pectoris (Primary Dx); Chronic heart failure with preserved ejection fraction (HCC) 07/11/2024 Telephone [facility] Cardiology [address] [place] [address] [address] [place] [address] [phone] Julio Richardson MD 07/08/2024 Telephone [facility] Cardiology [address] [place] [address] [place] [address] [phone] Fernando Modi MD 07/08/2024 Orders Only [facility] Cardiology [address] [place] [address] [place] [phone] Julio Richardson MD 06/29/2024 Telephone [facility] Cardiology [address] [place] [address] [place] [phone] Fernando Modi MD 06/21/2024 Orders Only [facility] Cardiology [address] [place] [address] [place] [address] [phone] Paola Nolen MD 06/13/2024 Orders Only [facility] Health Information Management [address] [place] [address] Paola Nolen MD 05/16/2024 Orders Only [facility] Cardiology [address] [place] [address] [place] [phone] Julio Richardson MD 05/10/2024 Orders Only [facility] Cardiology [address] [place] [address] [address] [place] [address] [phone] Fernando Modi MD 04/22/2024 Results Follow-Up [facility] Cardiology [address] [place] [address] [address] [place] [address] [phone] Harini Mann RN Chest pain, unspecified type (Primary Dx); Cardiovascular stress test abnormal 04/21/2024 8:15 AM BOTANICAL TECHNICAL OFFICER Ancillary Procedure [facility] Cardiology [address] [place] [address] Coronary artery disease of [place] artery of [place] heart with stable angina pectoris 04/20/2024 11:15 AM BOTANICAL TECHNICAL OFFICER Ancillary Procedure [facility] Cardiology [address] [place] [address] Coronary artery disease of [place] artery of [place] heart with stable angina pectoris from Last [...] on file Legal Sex Male 3:15 AM BOTANICAL TECHNICAL OFFICER Gender Identity Male 09/03/2018 6:22 AM [...] CARDIOLOGY DOCUMENT SCAN Routine 05/04/2024 10:59 AM BOTANICAL TECHNICAL OFFICER CARDIOLOGY DOCUMENT SCAN Routine 05/03/2024 10:55 AM BOTANICAL TECHNICAL OFFICER CARDIOLOGY DOCUMENT SCAN Routine 05/03/2024 8:33 AM BOTANICAL TECHNICAL OFFICER CARDIOLOGY DOCUMENT SCAN Routine 05/02/2024 10:52 AM BOTANICAL TECHNICAL OFFICER CARDIOLOGY DOCUMENT SCAN Routine 05/02/2024 10:10 AM BOTANICAL TECHNICAL OFFICER NM MPI SPECT (REST AND/OR STRESS) MULTIPLE STUDIES Schedule Routine, Read Routine (OP Routine) 04/20/2024 12:17 PM BOTANICAL TECHNICAL OFFICER Coronary artery disease of [place] artery of [place] heart with stable angina pectoris LIPID PANEL [...] * Cardiology Document Scan (05/04/2024 10:59 AM BOTANICAL TECHNICAL OFFICER) Anatomical Region Laterality Modality Other Julio Richardson MD [facility] PRO CEDURES Final Result * Cardiology Document Scan (05/03/2024 10:55 AM BOTANICAL TECHNICAL OFFICER) Anatomical Region Laterality Modality Other Julio Richardson MD CV CARDIAC SERVICES PRO CEDURES Final Result * Cardiology Document Scan (05/03/2024 8:33 AM BOTANICAL TECHNICAL OFFICER) Anatomical Region Laterality Modality Other Julio Richardson MD CV CARDIAC SERVICES PRO CEDURES Final Result * Cardiology Document Scan (05/02/2024 10:52 AM BOTANICAL TECHNICAL OFFICER) Anatomical Region Laterality Modality Other Result [facility] us Fernando Modi MD CV CARDIAC SERVICES PROCEDURES F inal Result * Cardiology Document Scan (05/02/2024 10:10 AM BOTANICAL TECHNICAL OFFICER) Anatomical Region Laterality Modality Other Result [facility] Fernando Modi MD CV CARDIAC SERVICES PROCEDURES F inal Result * NM MPI SPECT (Rest and/or Stress) Multiple Studies (04/20/2024 12:17 PM BOTANICAL TECHNICAL OFFICER) Anatomical Region Laterality Modality Body N/A Nuclear Medicine 04/20/2024 11:1 5 AM BOTANICAL TECHNICAL OFFICER Narrative 04/21/2024 4:44 PM BOTANICAL TECHNICAL OFFICER [facility] Medical Group Cardiology [address] [facility] [address], [place] [address] [address] [facility] [address], [place] [address] P:[phone] P:[phone] MPI Imaging Report Patient Name: KLAUDIA HALEYTomas : 1960 Study Date: 04/20/2024 11:15:21 AM Gender: M Tech: RIAN ORO Location: [facility] Provider: IFRAH GIBSON Height(Cm): 182.9 BSA: [...] Smoker, and I25.118 Atherosclerotic heart disease of [place] coronary artery with other forms of angina [...] By: Husam Raymundo MD 04/21/2024 4:43:33 PM BOTANICAL TECHNICAL OFFICER Electronically Signed By: Husam Raymundo MD 04/21/2024 4:43:33 PM BOTANICAL TECHNICAL OFFICER Procedure Note Husam Raymundo MD - 04/21/2024 [facility] Group Cardiology [address] [facility] [address], [place] [address] [address] [facility] [address], [place] [address] [phone] P:[phone] MPI Imaging Report Patient Name: KLAUDIA HALEY B : 1960 Study Date: 04/20/2024 11:15:21 AM Gender: M Tech: SHORTY [facility] Location: [facility] Provider: IFRAH GIBSON Height(Cm): 182.9 BSA: [...] Smoker, and I25.118 Atherosclerotic heart disease of [place] coronary artery withother forms of angina pectoris. [...] By: Husam Raymundo MD 04/21/2024 4:43:33 PM BOTANICAL TECHNICAL OFFICER Electronically Signed By: Husam Raymundo MD 04/21/2024 4:43:33 PM BOTANICAL TECHNICAL OFFICER Ifrah Gibson NP IMG NM PROCEDURES Final R esult * [...] Most Recently Relevant to Health Maintenance Insurance [facility] MEDICARE MEDICARE [facility] Address: [address] [address] [place] [address] IDPA Care Teams Pathology Collector Relationship Specialty Start Date End Date Sandi Alfaro PA PCP - General Nurse Practitioner 08/21/17
--- OUTSIDE RECORDS SUMMARY | 2024-07-12 16:58 | XMS_ITS | Referral Summary ---
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 (Primary Dx); Chronic heart failure with preserved ejection fraction (HCC) 07/11/2024 Telephone [facility] Medical [facility] Cardiology [address] [facility] [address] [place] [address] Julio Richardson MD 07/08/2024 Telephone [facility] Cardiology [address] [place] [address] [address] [place] [address] Fernando Modi MD 07/08/2024 Orders Only [facility] Medical [facility] Cardiology [address] [place] [address] [address] [place] [address] Julio Richardson MD 06/29/2024 Telephone [facility] Cardiology [address] [place] [address] [address] [place] [address] Fernando Modi MD 06/21/2024 Orders Only [facility] Cardiology [address] [place] [address] [address] [place] [address] Paola Nolen MD 06/13/2024 Orders Only [facility] Health Information Management [address] [place] [address] Paola Nolen MD 05/16/2024 Orders Only [facility] Cardiology [address] [place] [address] [place] [phone] Julio Richardson MD 05/10/2024 Orders Only [facility] Cardiology [address] [place] [address] [address] [place] [phone] Fernando Modi MD 04/22/2024 Results Follow-Up [facility] Cardiology [address] [place] [address] [place] [phone] Harini Mann RN Chest pain, unspecified type (Primary Dx); Cardiovascular stress test abnormal 04/21/2024 8:15 AM ICE CREAM DIPPER Ancillary Procedure [facility] Cardiology [address] [place] [address] [place] [phone] 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 Dx; Cryptogenic Stroke. DOI 10/12/[address] Willoughby[address] [facility]. TIA (transient ischemic attack) 10/06/2017 S/P coronary artery stent placement 12/17/2016 Morbid obesity with BMI of 45.0-49.9, adult ([facility]) 08/13/2016 Mixed anxiety depressive disorder 05/01/2015 Overview (06/07/2016): Anxiety and depression Coronary artery disease of n ative artery of curyung heart with stable angina pectoris 02/20/2015 Overview (06/07/2016): Coronary artery disease involving curyung coronary artery of curyung heart with other form of angina pectoris CVA, old, hemiparesis 02/20/2015 Overview (06/07/2016): CVA, old, hemiparesis Mixed diabetic hyperlipidemi a associated with type 2 diabetes mellitus ([facility]) 02/20/2015 Overview (06/07/2016): DM type 2 with [...] on file Legal Sex Male 3:15 AM ICE CREAM DIPPER Gender Identity Male 09/03/2018 6:22 AM CDT [...] CARDIOLOGY DOCUMENT SCAN Routine 05/04/2024 10:59 AM ICE CREAM DIPPER CARDIOLOGY DOCUMENT SCAN Routine 05/03/2024 10:55 AM ICE CREAM DIPPER CARDIOLOGY DOCUMENT SCAN Routine 05/03/2024 8:33 AM ICE CREAM DIPPER CARDIOLOGY DOCUMENT SCAN Routine 05/02/2024 10:52 AM ICE CREAM DIPPER CARDIOLOGY DOCUMENT SCAN Routine 05/02/2024 10:10 AM ICE CREAM DIPPER NM MPI SPECT (REST AND/OR STRESS) MULTIPLE STUDIES Schedule Routine, Read Routine (OP Routine) 04/20/2024 12:17 PM ICE CREAM DIPPER 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 LIPID PANEL [...] * Cardiology Document Scan (05/04/2024 10:59 AM ICE CREAM DIPPER) Anatomical Region Laterality Modality Other Julio Richardson MD CV CARDIAC SERVICES PRO CEDURES Final Result * Cardiology Document Scan (05/03/2024 10:55 AM ICE CREAM DIPPER) Anatomical Region Laterality Modality Other Julio Richardson MD CV CARDIAC SERVICES PRO CEDURES Final Result * Cardiology Document Scan (05/03/2024 8:33 AM ICE CREAM DIPPER) Anatomical Region Laterality Modality Other Julio Richardson MD CV CARDIAC SERVICES PRO CEDURES Final Result * Cardiology Document Scan (05/02/2024 10:52 AM ICE CREAM DIPPER) Anatomical Region Laterality Modality Other Fernando Modi MD CV CARDIAC SERVICES PROCEDURES F inal Result * Cardiology Document Scan (05/02/2024 10:10 AM ICE CREAM DIPPER) Anatomical Region Laterality Modality Other Result [facility] Fernando Modi MD CV CARDIAC SERVICES PROCEDURES F inal Result * NM MPI SPECT (Rest and/or Stress) Multiple Studies (04/20/2024 12:17 PM ICE CREAM DIPPER) Anatomical Region Laterality Modality Body N/A Nuclear Medicine 04/20/2024 11:1 5 AM ICE CREAM DIPPER Narrative 04/21/2024 4:44 PM ICE CREAM DIPPER [facility] Medical Group Cardiology [address] [facility] [address], [place] [address] [address] [facility] [address], [place] [address] P:[phone] P:[phone] MPI Imaging Report Patient Name: KENYAKLAUDIA B : 1960 Study Date: 04/20/2024 11:15:21 AM Gender: M Tech: [facility] Location: [facility] Provider: PAIGE, IFRAH Height(Cm): 182.9 BSA: Weight(Kg): 137.4 BMI: 41.07 [...] Smoker, and I25.118 Atherosclerotic heart disease of curyung coronary artery with other forms of angina [...] By: Husam Raymundo MD 04/21/2024 4:43:33 PM ICE CREAM DIPPER Electronically Signed By: Husam Raymundo MD 04/21/2024 4:43:33 PM ICE CREAM DIPPER Procedure Note Husam Raymundo MD - 04/21/2024 [facility] Medical Group Cardiology [address] [facility] [address] [id number] [address] [facility] [address], [place] [id number] P:[phone] P:[phone] MPI Imaging Report Patient Name: KLAUDIA HALEYTomas : 1960 Study Date: 04/20/2024 11:15:21 AM Gender: M Tech: [facility] Location: [facility] Provider: IFRAH GIBSON Height(Cm): 182.9 BSA: [...] Smoker, and I25.118 Atherosclerotic heart disease of curyung coronary artery withother forms of angina pectoris. [...] By: Husam Raymundo MD 04/21/2024 4:43:33 PM ICE CREAM DIPPER Electronically Signed By: Husam Raymundo MD 04/21/2024 4:43:33 PM ICE CREAM DIPPER us Ifrah Gibson SUPERVISOR WASH HOUSE IMG NM PROCEDURES Final R esult * [...] Most Recently Relevant to Health Maintenance Insurance [facility] MEDICARE [facility] Address: [address] [address] [place] [address] MEDICARE [facility] Address: [address] [address] [place] [address] [facility] Care Teams Chief Green Officer Relationship Specialty Start Date End Date Sandi Alfaro PA PCP - General Nurse Practitioner 08/21/17
--- OUTSIDE RECORDS SUMMARY | 2024-07-12 16:58 | XMS_ITS | Encounter Summary ---
Author Organization [facility] Healthcare Address [address] [place] [address] Care Team Providers Care Pcb Design Engineer Name Role Phone Sandi Alfaro Primary Care Provider + Encounter Details Date Type Department Care Team (Late st Contact Info) Description 07/11/2024 Telephone [facility] Medical Group Cardiology [address] [place] [address] [place] [address] [place] [address] Social History Tobacco Use Types Packs/Day Years Used Date Smoking Tobacco: Some Days Cigarettes 0.3 15 Smokeless Tobacco: Never Alcohol Use Standard Drinks/Week Comments Yes 0 (1 standard drink = 0.6 oz pur e alcohol) Sex and Gender Information Value Date Recorded Sex Assigned at Not on file Legal Sex Male 3:15 AM KNIFE BLADE POLISHER Gender Identity Male 09/03/2018 6:22 AM CDT [...] on filedocumented in this encounter Care Teams Pcb Design Engineer Relationship Specialty Start Date End Date Sandi Alfaro PA PCP - General Nurse Practitioner 08/21/17 documented as of this encounter
--- OUTSIDE RECORDS SUMMARY | 2024-07-12 16:58 | XMS_ITS | Encounter Summary ---
Author Organization [facility] Address [address] [place] [address] Care Team Providers Care Creative Services Specialist Name Role Phone Sandi Alfaro Primary Care Provider [phone] Sandi Alfaro Unavailable [phone] Cheryl Huston RN Unavailable Unavailable Encounter Details Date Type Department Care Team (Latest Contact Info) Description 10/26/2017 Abstract [facility] Medical Group , Shay Hughes MD Social [...] Sex Assigned at Male 03/31/2024 8:58 AM TEACHER EDUCATION DIRECTOR Legal Sex Male 8:01 PM CDT Gender Identity Not on file Sexual Orientation Not on file documented as of this encounter Plan of Treatment Upcoming Encounters Date Type Department Care Team (Late st Contact Info) Description 07/20/2024 8:40 AM CDT Office Visit [facility] Medical Group Family & Internal Medicine [address] [phone] Sandi Alfaro APNP [address] [place] [address] documented as of this encounter Visit Diagnoses Not on filedocumented in this encounter Additional Health Concerns Infection Onset Date Last Indicated Resolved Time COVID-19 Rule Out 10/24/2019 11/25/2019 11/27/2019 1:56 AM CDT COVID-19 Rule Out 05/03/2020 05/03/2020 05/03/2020 3:25 PM TEACHER EDUCATION DIRECTOR COVID-19 Rule Out 05/12/2023 05/12/2023 05/13/2023 12:01 AM CDT Influenza - Seasonal 05/14/2023 05/14/2023 024 12:32 AM CDT documented as of this encounter Care Teams Creative Services Specialist Relationship Specialty Start Date End Date Sandi Alfaro APNP Family & Internal Medicine [address] [address] PCP - General ADVANCED PRACTICE CRUSHER DRY GROUND MICA 04/28/17 Sandi Alfaro APNP [address] [place] [address] PCP - Med Group - MSSP Attributed Provider 03/02/15 03/01/22 Cheryl Huston, quill machine operator (Ambulatory) REGISTERED NURSE 03/23/19 documented as of this encounter
--- OUTSIDE RECORDS SUMMARY | 2024-07-12 16:58 | XMS_ITS | Encounter Summary ---
Author Organization [facility] Address [address] [place] [address] Care Team Providers Care Home Care Physical Therapist Name Role Phone Sandi Alfaro Primary Care Provider [phone] Cheryl Huston RN Unavailable Unavailable Encounter Details [...] pur e alcohol) very rarely 6 beers/year [facility] Utilities Answer Date Recorded In the past 12 months has e [employer], gas, oil, or water [employer] threatened to shut off services in your [...] often do you attend chur ch or mormonism services? Never 05/12/2023 Do you belong to any clubs o r organizations such as pentecostal groups, unions, fraternal or athletic groups, or [...] Recorded Patient Health Questionnaire-2 Score 0 03/31/2024 [facility] - Occupational Stress Questionnaire Answer Date [...] place to sleep or slept in a nursing home (including now)? No 05/12/2023 Sex and Gender Information Value Date Recorded Sex Assigned at Male 03/31/2024 8:58 AM SHOT BLASTER Legal Sex Male 8:01 PM CDT Gender [...] Description 07/20/2024 8:40 AM CDT Office Visit [facility] Medical Group Family & Internal Medicine [address] [phone] Sandi Alfaro APNP [address] [place] [address] documented as of this encounter Visit Diagnoses Not on filedocumented in this encounter Additional Health Concerns Assessment Noted Time PHQ-9 Depression Total Score: 0 05/21/19 24 11:21 AM CDT documented as of this encounter Care Teams Home Care Physical Therapist Relationship Specialty Start Date End Date Sandi Alfaro APNP Family & Internal Medicine [address] [address] PCP - General ADVANCED PRACTICE ROVING DEPARTMENT SUPERVISOR 04/28/17 Cheryl Huston breaker up machine operator (Ambulatory) REGISTERED NURSE 03/23/19 documented as of this encounter
--- OUTSIDE RECORDS SUMMARY | 2024-07-12 16:58 | XMS_ITS | Encounter Summary ---
Author Organization [facility] Address [address] [place] [address] Care Team Providers Care Elementary School Teacher'S Aide Name Role Phone Sandi Alfaro Primary Care Provider [phone] Sandi Alfaro Unavailable [phone] Cheryl Huston RN Unavailable Unavailable Encounter Details Date Type Department Care Team (Late st Contact Info) Description 05/13/2021 [employer] Message Enc [facility] Medical Group Multispecialty Care - [facility] [address] [facility] [place] [address] Eliza, [facility] Provider CPAP Social History Tobacco Use Types Packs/Day Years Used Date Smoking Tobacco: Every Day Cigarettes 0.3 40 Smokeless Tobacco: Never Comments:want to quit but gary s alot of stress right [id number] smoking about 3-4 cigaretts a day Alcohol Use Standard Drinks/Week Comments Yes 0 (1 standard drink = 0.6 oz pur e alcohol) very rarely 6 beers/year PHQ-2 Answer Date Recorded PHQ-2 Score - If the patient scores above 3, please move on to questions 3-9 4 01/23/2021 Sex and Gender Information Value Date Recorded Sex Assigned at Male 03/31/2024 8:58 AM TALENT ACQUISITION ASSOCIATE Legal Sex Male 8:01 PM CDT Gender [...] Description 07/20/2024 8:40 AM CDT Office Visit [facility] Medical Group Family & Internal Medicine [address] [address] Sandi Alfaro APNP [address] [place] [address] documented as of this encounter Visit Diagnoses Not on filedocumented in this encounter Additional Health Concerns Infection Onset Date Last Indicated Resolved Time COVID-19 Rule Out 05/12/2023 05/12/2023 05/13/2023 12:01 AM CDT Influenza - Seasonal 05/14/2023 05/14/2023 024 12:32 AM CDT Assessment Noted Time PHQ-9 Depression Total Score: 7 01/24/20 21 1:37 PM TALENT ACQUISITION ASSOCIATE documented as of this encounter Care Teams Elementary School Teacher'S Aide Relationship Specialty Start Date End Date Sandi Alfaro APNP Family & Internal Medicine [address] [address] PCP - General ADVANCED PRACTICE TARP REPAIRER 04/28/17 Sandi Alfaro APNP [address] [place] [address] PCP - Med Group - MSSP Attributed Provider 03/02/15 03/01/22 Cheryl Huston, pipe assembly worker (Ambulatory) REGISTERED NURSE 03/23/19 documented as of this encounter
--- OUTSIDE RECORDS SUMMARY | 2024-07-12 16:58 | XMS_ITS | Clinical Summary ---
Author Organization [facility] Address [address] [place] [address] Care Team Providers Care Traffic Inspector Name Role Phone Sandi Alfaro CLINICAL DOCUMENTATION CONSULTANT-RELIGIOUS EDUCATOR Primary Care Provider Source Comments [facility],non-owned Affiliates and Associated Physician Practices is amultiple site organization consisting of ambulatory clinics and hospital sitesin [place], [place], [place] and [place]. This disclosure is being madepursuant to the Care Everywhere program and may not contain all information available regarding this patient. Last updated 17.[facility] Allergies No known active allergies Medications * [...] on file Legal Sex Male 5:35 PM ROOFER Gender Identity Not on file Sexual Orientation [...] ORDERABLES F inal Result Performing Organization Address [facility] Co de Phone Number [address] [phone] * HEPATITIS C AB SCREEN RFLX NAAT QUANT (05/26/2018 4:21 PM CDT) Pathologist [facility] Hepatitis C Antibody Non-react kendell Non-reac tive [...] ORDERABLES Fi nal Result Performing Organization Address City/[facility]/ZIP Co de Phone Number [address] [address], [place] [phone] from Last 3 Months or Most Recently Relevant to Health Maintenance Insurance MEDICARE MEDICAID - OUT OF STATE MEDICARE MEDICAID - [place] Advance Directives * Full Code (Latest Code Status on File) Date Activated Date Inactivated Comments 05/26/2018 2:01 PM 05/28/2018 11:56 AM Care Teams Traffic Inspector Relationship Specialty Start Date End Date Sandi Alfaro APRN-RELIGIOUS EDUCATOR [address] [place] [address] PCP - General 08/27/21
--- OUTSIDE RECORDS SUMMARY | 2024-07-12 16:58 | XMS_ITS | Encounter Summary ---
Author Organization [facility] Healthcare Address [address] [place] [address] Care Team Providers Care Automatic Coin Machine Mechanic Name Role Phone Sandi Alfaro Primary Care Provider + Reason for Visit * Reason Comments Follow-up Encounter Details Date Type Department Care Team (Late st Contact Info) Description 07/12/2024 11:45 AM CDT Office Visit [facility] Medical Group Cardiology [address] [address] [address] [place] [address] Fernando Modi MD [address] [facility] [address] [facility] [address] [place] [address] Coronary artery disease of tribe artery of tribe heart with stable angina pectoris (Primary Dx); Chronic heart failure with preserved ejection fraction (HCC) Social History Tobacco Use Types Packs/Day Years Used Date Smoking Tobacco: Some Days Cigarettes 0.3 15 Smokeless Tobacco: Never Alcohol Use Standard Drinks/Week Comments Yes 0 (1 standard drink = 0.6 oz pur e alcohol) Sex and Gender Information Value Date Recorded Sex Assigned at Not on file Legal Sex Male 3:15 AM ENVELOPE MACHINE ADJUSTER Gender Identity Male 09/03/2018 6:22 AM CDT [...] 11:48 AM CDT documented in this encounter Progress Notes * Fernando Modi MD - 07/12/2024 11:45 AM CDT [facility] MEDICAL GROUP CARDIOLOGY CHIEF COMPLAINT / REASON FOR CONSULT: Follow up post PCI HISTORY: Vini Zambrano is a 64 y.o. male with CAD status post PCI to proximal LAD, mid LAD, and left circumflex, chronic diastolic heart failure, CVA history, hypertension, hyperlipidemia, diabetestype 2, and TAMIR on CPAP returns after PCI. Since our last visit, he had 3 cardiac catheterizations with eventual PCI to the mid LAD. Was determined that he had elevated LVEDP for which he was placed on Lasix. Was also placed on guideline directed medical therapy however he started to become dizzy and unable to tolerate Entresto as his bloodpressure was low and thus Entresto was was discontinued. Overall he has much less chest pain. His ma in complaint the stays are diarrhea followed by dizziness. Exercise Tolerance: Currently limited by dizziness Social: Smoker Family History: Medications: Plavix 75 mg p.o. daily Xarelto 2.5 mg p.o. b.i.d. Atorvastatin 80 mg every evening Amlodipine 10 mg p.o. daily Losartan 100 mg p.o. daily Carvedilol 12.5 mg p.o. b.i.d. Imdur 120 mg p.o. daily Sublingual nitro p.r.n. REVIEW OF SYSTEMS: GENERAL: As per HPI CVS: As per HPI HEME: No bruising, no bleeding PHYSICAL EXAMINATION: BP 136/74 (BP Location: Left arm, Patient Position: Sitting) Pulse 85 Ht 182.9 cm (6') Wt 135.2 kg (298 lb) SpO2 96% BMI 40.42 kg/mÂ² GENERAL: Alert, in no distress HEAD: Normocephalic and atraumatic EYES: Extraocular movement intact ENT: Unremarkable NECK: no jugular venous distention CHEST: Clear to auscultation, no wheezes, rales or rhonchi, symmetric air entry CARDIAC: Regular rate and rhythm, S1 S2 normal, no murmur, rub, heaves, thrills or gallops ABDOMEN: soft, nontender, no bruit EXTREMITIES: No edema PERIPHERAL PULSES: Peripheral pulses symmetrical SKIN: Warm and dry NEURO: Alert and oriented x 3 LABS: No results found for: CHOL No results found for: HDL No results found for: LDLCALC No results found for: TRIG No results found for: CHOLHDL No results found for: HGBA1C CARDIAC IMAGING RESULTS REVIEW: Echo 12/2021: normal BiV systolic function. No significant valvular disease Cardiac CT Stress Test Cardiac Monitors Cath 01/2023: patent LAD and LCx stents. Thrombotic lesion in very small OM branch to be managed medically Cath 04/2024: pci to mLAD ASSESSMENT/PLAN: 64 y.o. male with CAD status post PCI to proximal LAD, mid LAD, and left circumflex, chronic diastolic heart failure, CVA history, hypertension, hyperlipidemia, diabetes type 2, and TAMIR on CPAP returns after PCI Dizziness -Given his ongoing diarrhea and recently prescribed Lasix for elevated LVEDP along with 5 lb weightloss and short period of time, most likely dehydrated -We have agreed to discontinue his Lasix for now and should he develop exertional symptoms, we can retry him on Lasix especially if his diarrhea has resolved -I have asked him to follow up with his primary care physician regards to his ongoing diarrhea CAD status post PCI -Continue Plavix 75 mg p.o. daily and Xarelto 2.5 mg p.o. b.i.d. -Previously complained that he was unable to tolerate Plavix; currently tolerating Chronic angina -Continue Imdur 120 mg p.o. daily and carvedilol 12.5 mg p.o. b.i.d. Chronic diastolic heart failure -Euvolemic on physical examination and given his orthostatic symptoms, Lasix was discontinued -Continue losartan 100 mg p.o. daily Hyperlipidemia -Continue atorvastatin 80 mg every evening Today again concerns about his medications and not being able to refill some them. We have reviewedhis medications thoroughly and discuss which once that he should be taking and which once he shouldstopped taking. He expressed understanding. Return to clinic in 6 months Fernando Modi MD documented in this encounter Plan of Treatment Not on file documented as of this encounter Visit Diagnoses Diagnosis Coronary artery disease of tribe artery of tribe heart with stable angina pectoris- Primary Chronic heart failure with preserved ejection fraction (HCC) documented in this encounter Discontinued Medications Medication [...] documented as of this encounter Care Teams Automatic Coin Machine Mechanic Relationship Specialty Start Date End Date Sandi Alfaro PA PCP - General Nurse Practitioner 08/21/17 documented as of this encounter
--- OUTSIDE RECORDS SUMMARY | 2024-07-12 16:58 | XMS_ITS | Encounter Summary ---
Author Organization [facility] Address [address] [place] [address] Care Team Providers Care Barrel Racer Name Role Phone Sandi Alfaro Primary Care Provider [phone] Cheryl Huston RN Unavailable Unavailable Encounter Details Date Type Department Care Team (Late Contact Info) Description 08/27/2022 MyChart Message Enc [facility] Medical [address] [id number] [employer], [facility] Provider Air Quality Message Social History [...] Sex Assigned at Male 03/31/2024 8:58 AM REGIONAL SALES CONSULTANT Legal Sex Male 8:01 PM CDT Gender [...] CDT Office Visit [facility] Medical [facility] Family & Internal Medicine [address] [phone] Sandi Alfaro APNP [address] [place] [address] documented as of this encounter Visit Diagnoses Not on filedocumented in this encounter Additional Health Concerns Infection Onset Date Last Indicated Resolved Time COVID-19 Rule Out 05/12/2023 05/12/2023 05/13/2023 12:01 AM CDT Influenza - Seasonal 05/14/2023 05/14/2023 024 12:32 AM CDT Assessment Noted Time PHQ-9 Depression Total Score: 13 023 10:48 AM CDT documented as of this encounter Care Teams Barrel Racer Relationship Specialty Start Date End Date Sandi Alfaro APNP Family & Internal Medicine [address] [address] PCP - General ADVANCED PRACTICE SHOT PEENING OPERATOR 04/28/17 Cheryl Huston, rope tow operator (Ambulatory) REGISTERED NURSE 03/23/19 documented as of this encounter
--- OUTSIDE RECORDS SUMMARY | 2024-07-12 16:58 | XMS_ITS | Encounter Summary ---
Author Organization [facility] Address [address] [place] [address] Care Team Providers Care Cook Ice Cream Name Role Phone Sandi Alfaro Primary Care Provider [phone] Cheryl Huston RN Unavailable Unavailable Encounter Details [...] very rarely 6 beers/year [facility] Utilities Answer Date Recorded In the past 12 months has e [employer], gas, oil, or water [employer] threatened to shut off services in your [...] often do you attend chur ch or judaism services? Never 05/12/2023 Do you belong to any clubs o r organizations such as faith groups, unions, fraternal or athletic groups, or [...] Recorded Patient Health Questionnaire-2 Score 0 03/31/2024 [facility] - Occupational Stress Questionnaire Answer Date [...] Sex Assigned at Male 03/31/2024 8:58 AM PET FEEDER Legal Sex Male 8:01 PM CDT Gender [...] Description 07/20/2024 8:40 AM CDT Office Visit [facility] Medical Group Family & Internal Medicine [address] [address] Sandi Alfaro APNP [address] [place] [address] documented as of this encounter Visit Diagnoses Not on filedocumented in this encounter Additional Health Concerns Assessment Noted Time PHQ-9 Depression Total Score: 0 05/21/19 24 11:21 AM CDT documented as of this encounter Care Teams Cook Ice Cream Relationship Specialty Start Date End Date Sandi Alfaro APNP Family & Internal Medicine [address] [address] PCP - General ADVANCED PRACTICE DATE PULLER 04/28/17 Cheryl Huston magazine writer (Ambulatory) REGISTERED NURSE 03/23/19 documented as of this encounter
--- OUTSIDE RECORDS SUMMARY | 2024-07-12 16:58 | XMS_ITS | Encounter Summary ---
Author Organization [facility] Address [address] [place] [address] Care Team Providers Care Computer Analyst Name Role Phone Sandi Alfaro Primary Care Provider [phone] Cheryl Huston RN Unavailable Unavailable Reason for Visit * Reason Comments Terminal Operations Manager Report (SCAN)* Encounter Details Date Type Department Care Team (Late st Contact Info) Description 07/04/2024 Scan HEALTH INFO SRVCS Scanned, Doc Med Group Terminal Operations Manager Report (SCAN)* Social History Tobacco Use Types Packs/Day Years Used Date Smoking Tobacco: Former Cigarettes 0.3 40 Q uit: 02/17/2024 Smokeless Tobacco: Never Comments:currently smoking 1 -2 cigarettes a day Alcohol Use Standard Drinks/Week Comments Yes 0 (1 standard drink = 0.6 oz pur e alcohol) very rarely 6 beers/year [facility] Utilities Answer Date Recorded In the past 12 months has [employer], gas, oil, or water [employer] threatened to shut off services in your [...] often do you attend chur ch or hinduism services? Never 05/12/2023 Do you belong to any clubs o r organizations such as adventist groups, unions, fraternal or athletic groups, or [...] Recorded Patient Health Questionnaire-2 Score 0 03/31/2024 [facility]ational [facility] Questionnaire Answer Date [...] Sex Assigned at Male 03/31/2024 8:58 AM CHILD CARE EDUCATION COORDINATOR Legal Sex Male 8:01 PM CDT [...] Description 07/20/2024 8:40 AM CDT Office Visit [facility] Medical Group Family & Internal Medicine [facility] [address] [place] [address] Sandi Alfaro APNP [address] [place] [address] documented as of this encounter Procedures Procedure Name Priority Date/Time Associated Diagnosis Comments AIRPLANE INSPECTOR 07/04/2024 documented in this encounter Results * AIRPLANE INSPECTOR (07/04/2024) Anatomical Region Laterality Modality Other 07/04/2024 us Doc Med Group Scanned SCANNING Final Resu lt documented in this encounter Visit Diagnoses Not on filedocumented in this encounter Additional Health Concerns Assessment Noted Time PHQ-9 Depression Total Score: 0 05/21/19 24 11:21 AM CDT documented as of this encounter Care Teams Computer Analyst Relationship Specialty Start Date End Date Sandi Alfaro APNP Family & Internal Medicine [address] [address] PCP - General ADVANCED PRACTICE SUMMER ANALYST 04/28/17 Cheryl Huston green building design specialist (Ambulatory) REGISTERED NURSE 03/23/19 documented as of this encounter
[2024-07-12 17:17] LABS: Troponin I < 0.012 ng/mL (0.000-0.034)
[2024-07-12] MEDS: SODIUM CHLORIDE 0.9% IV 1,000 ML 200 ML IV CONT (17:17)
[2024-07-12 18:20] LABS: Add Urine Microscopic? YES; Appearance Urine Clear (Clear); Bacteria Urine None Seen /hpf; Bilirubin Urine Negative (Negative); Blood Urine Negative (Negative); Color Urine Yellow (Yellow); Glucose Urine UA 3+ mg/dL (Negative); Hyaline Casts Urine Present /lpf; Ketones Urine Negative (Negative); Leukocyte Esterase Ur Negative LEU/UL (Negative); Need Manual Microscopic Reviewed; Nitrate Urine Negative (Negative); Protein Urine 1+ mg/dL (Negative); RBC Urine 0-2 /hpf (0-2); Specific Grav Ur 1.018 (1.001-1.035); Squamous Epithelial Cell Urine None Seen /hpf (Few); Urobilinogen Urine 0.2 mg/dL (<2.0); WBC Urine 0-5 /hpf (0-3)
--- OUTSIDE RECORDS SUMMARY | 2024-07-12 18:29 | XMS_ITS | Encounter Summary ---
Author Organization [facility] Address [address] [place] [address] Care Team Providers Care Stock Chaser Name Role Phone Sandi Alfaro Primary Care Provider [phone] Sandi Alfaro Unavailable [phone] Cheryl Huston RN Unavailable Unavailable Encounter Details Date Type Department Care Team (Latest Contact Info) Description 10/26/2017 Abstract [facility] Medical Group , Shay Hughes [...] Sex Assigned at Male 03/31/2024 8:58 AM LENS CEMENTER Legal Sex Male 8:01 PM CDT Gender Identity Not on file Sexual Orientation Not on file documented as of this encounter Plan of Treatment Upcoming Encounters Date Type Department Care Team (Late st Contact Info) Description 07/20/2024 8:40 AM CDT Office Visit [facility] Medical Group Family & Internal Medicine [address] [phone] Sandi Alfaro APNP [address] [place] [address] documented as of this encounter Visit Diagnoses Not on filedocumented in this encounter Additional Health Concerns Infection Onset Date Last Indicated Resolved Time COVID-19 Rule Out 10/24/2019 11/25/2019 11/27/2019 1:56 AM CDT COVID-19 Rule Out 05/03/2020 05/03/2020 05/03/2020 3:25 PM LENS CEMENTER COVID-19 Rule Out 05/12/2023 05/12/2023 05/13/2023 12:01 AM CDT Influenza - Seasonal 05/14/2023 05/14/2023 024 12:32 AM CDT documented as of this encounter Care Teams Stock Chaser Relationship Specialty Start Date End Date Sandi Alfaro APNP Family & Internal Medicine [address] [address] PCP - General ADVANCED PRACTICE LORRY WEIGHER 04/28/17 Sandi Alfaro APNP [address] [place] [address] PCP - Med Group - MSSP Attributed Provider 03/02/15 03/01/22 Cheryl Huston, digital manager (Ambulatory) REGISTERED NURSE 03/23/19 documented as of this encounter
--- OUTSIDE RECORDS SUMMARY | 2024-07-12 18:29 | XMS_ITS | Encounter Summary ---
Author Organization [facility] Address [address] [place] [address] Care Team Providers Care Rotary Drum Tanner Name Role Phone Sandi Alfaro Primary Care Provider [phone] Cheryl Huston RN Unavailable Unavailable Encounter Details Date Type Department Care Team (Late Contact Info) Description 08/27/2022 MyChart Message Enc [facility] Medical [address] [phone] [employer], [facility] Provider Air Quality Message Social [...] Sex Assigned at Male 03/31/2024 8:58 AM PAD EXTRACTION TENDER Legal Sex Male 8:01 PM CDT Gender [...] Description 07/20/2024 8:40 AM CDT Office Visit [facility] Medical [facility] Family & Internal Medicine [address] [phone] Sandi Alfaro APNP [address] [place] [address] documented as of this encounter Visit Diagnoses Not on filedocumented in this encounter Additional Health Concerns Infection Onset Date Last Indicated Resolved Time COVID-19 Rule Out 05/12/2023 05/12/2023 05/13/2023 12:01 AM CDT Influenza - Seasonal 05/14/2023 05/14/2023 024 12:32 AM CDT Assessment Noted Time PHQ-9 Depression Total Score: 13 023 10:48 AM CDT documented as of this encounter Care Teams Rotary Drum Tanner Relationship Specialty Start Date End Date Sandi Alfaro APNP Family & Internal Medicine [address] [address] PCP - General ADVANCED PRACTICE MICROFILMING DOCUMENT PREPARER 04/28/17 Cheryl Huston, tool smith (Ambulatory) REGISTERED NURSE 03/23/19 documented as of this encounter
--- OUTSIDE RECORDS SUMMARY | 2024-07-12 18:29 | XMS_ITS | Encounter Summary ---
Author Organization [facility] Address [address] [place] [address] Care Team Providers Care Riprap Man Name Role Phone Sandi Alfaro Primary Care Provider [phone] Cheryl Huston RN Unavailable Unavailable Encounter Details Date Type Department Care Team (Late st Contact Info) Description 08/18/2023 [facility] Message Enc [facility] Medical Group Multispecialty Care - [facility] [address], [address] [place] [phone] [employer], [facility] Provider Results Social History Tobacco Use Types Packs/Day Years Used Date Smoking Tobacco: Every Day Cigarettes 0.3 40 Smokeless Tobacco: Never Comments:currently smoking 2 -3 cigarettes a day Alcohol Use Standard Drinks/Week Comments Yes 0 (1 standard drink = 0.6 oz pur e alcohol) very rarely 6 beers/year [facility] Utilities Answer Date Recorded In the past 12 months has [facility] [employer], gas, oil, or water [employer] threatened to shut off services in your [...] How often do you attend chur or mandaeism services? Never 05/12/2023 Do you belong to any clubs o r organizations such as uatsdin groups, unions, fraternal or athletic groups, or [...] No 05/12/2023 Housing Stability Vital Sign Answer Totoniel e Recorded In the last 12 months, [...] place to sleep or slept in a fdc (including now)? No 05/12/2023 Sex and Gender Information Value Date Recorded Sex Assigned at Male 03/31/2024 8:58 AM MEDICAL BILLING SERVICE Legal Sex Male 8:01 PM CDT Gender [...] Description 07/20/2024 8:40 AM CDT Office Visit [facility] Medical Group Family & Internal Medicine [address] [phone] Sandi Alfaro APNP [address] [place] [address] documented as of this encounter Visit Diagnoses Not on filedocumented in this encounter Additional Health Concerns Assessment Noted Time PHQ-9 Depression Total Score: 0 05/21/19 24 11:21 AM CDT documented as of this encounter Care Teams Riprap Man Relationship Specialty Start Date End Date Sandi Alfaro APNP Family & Internal Medicine [address] [address] PCP - General ADVANCED PRACTICE BULLET SLUGS INSPECTOR 04/28/17 Cheryl Huston washer machine (Ambulatory) REGISTERED NURSE 03/23/19 documented as of this encounter
--- OUTSIDE RECORDS SUMMARY | 2024-07-12 18:29 | XMS_ITS | Encounter Summary ---
Author Organization [facility] Address [address] [place] [address] Care Team Providers Care Crucible Furnace Tender Name Role Phone Sandi Alfaro Primary Care Provider [phone] Cheryl Huston RN Unavailable Unavailable Reason for Visit * Reason Comments Visually Impaired Teacher Report (SCAN)* Encounter Details Date Type Department Care Team (Late st Contact Info) Description 07/04/2024 Scan HEALTH INFO SRVCS Scanned, Doc Med Group Visually Impaired Teacher Report (SCAN)* Social History Tobacco Use Types Packs/Day Years Used Date Smoking Tobacco: Former Cigarettes 0.3 40 Q uit: 02/17/2024 Smokeless Tobacco: Never Comments:currently smoking 1 -2 cigarettes a day Alcohol Use Standard Drinks/Week Comments Yes 0 (1 standard drink = 0.6 oz pur e alcohol) very rarely 6 beers/year [facility] Utilities Answer Date Recorded In the past 12 months has the [employer], gas, oil, or water [employer] threatened to shut off services in your [...] often do you attend chur ch or restorationist services? Never 05/12/2023 Do you belong to [...] Recorded Patient Health Questionnaire-2 Score 0 03/31/2024 [facility] - Occupational [facility] Questionnaire Answer Date [...] Sex Assigned at Male 03/31/2024 8:58 AM LEAD INGOT MOLDER Legal Sex Male 8:01 PM CDT Gender [...] Description 07/20/2024 8:40 AM CDT Office Visit [facility] Medical Group Family & Internal Medicine [facility] [address] [place] [address] Sandi Alfaro APNP [address] [place] [address] documented as of this encounter Procedures Procedure Name Priority Date/Time Associated Diagnosis Comments SPECTROGRAPHER 07/04/2024 documented in this encounter Results * SPECTROGRAPHER (07/04/2024) Anatomical Region Laterality Modality Other 07/04/2024 us Doc Med Group Scanned SCANNING Final Resu lt documented in this encounter Visit Diagnoses Not on filedocumented in this encounter Additional Health Concerns Assessment Noted Time PHQ-9 Depression Total Score: 0 05/21/19 24 11:21 AM CDT documented as of this encounter Care Teams Crucible Furnace Tender Relationship Specialty Start Date End Date Sandi Alfaro APNP Family & Internal Medicine [address] [address] PCP - General ADVANCED PRACTICE CUT OFF WORKER 04/28/17 Cheryl Huston airbrush artist (Ambulatory) REGISTERED NURSE 03/23/19 documented as of this encounter
--- OUTSIDE RECORDS SUMMARY | 2024-07-12 18:29 | XMS_ITS | Encounter Summary ---
Author Organization [facility] Address [address] [place] [address] Care Team Providers Care Inspector Returned Materials Name Role Phone Sandi Alfaro Primary Care Provider [phone] Cheryl Huston RN Unavailable Unavailable Encounter Details [...] pur e alcohol) very rarely 6 beers/year [facility] Utilities Answer Date Recorded In the past 12 months has e [employer], gas, oil, or water [employer] threatened to shut off services in your [...] often do you attend chur ch or orthodox services? Never 05/12/2023 Do you belong to any clubs o r organizations such as protestant groups, unions, fraternal or athletic groups, or [...] Recorded Patient Health Questionnaire-2 Score 0 03/31/2024 [facility] Occupational Stress Questionnaire Answer Date [...] Sex Assigned at Male 03/31/2024 8:58 AM CABLE INSTALLATION MANAGER Legal Sex Male 8:01 PM CDT [...] Description 07/20/2024 8:40 AM CDT Office Visit [facility] Medical Group Family & Internal Medicine [address] [address] Sandi Alfaro APNP [address] [place] [address] documented as of this encounter Visit Diagnoses Not on filedocumented in this encounter Additional Health Concerns Assessment Noted Time PHQ-9 Depression Total Score: 0 05/21/19 24 11:21 AM CDT documented as of this encounter Care Teams Inspector Returned Materials Relationship Specialty Start Date End Date Sandi Alfaro APNP Family & Internal Medicine [address] [address] PCP - General ADVANCED PRACTICE BANK OPERATIONS OFFICER 04/28/17 Cheryl Huston head banquet waiter/waitress (Ambulatory) REGISTERED NURSE 03/23/19 documented as of this encounter
--- OUTSIDE RECORDS SUMMARY | 2024-07-12 18:29 | XMS_ITS | Clinical Summary ---
Author Organization [facility] Address [address] [place] [address] Care Team Providers Care Police Communications Operator Name Role Phone Sandi Alfaro Primary Care Provider [phone] Cheryl Huston RN Unavailable Unavailable Allergies No [...] complication, without long-term current use of insulin ([facility]) USE 1 STRIP [...] ons:Dyslipidemia associated with type 2 diabetes mellitus ([facility]) Inject 3 mg into [...] congestive heart failure, unspecified heart failure type ([facility]),Primary hypertension TAKE 1 TABLET [...] complication, without long-term current use of insulin ([facility]) TAKE 1 TABLET BY [...] MCG/ACT inhalerIndication s:Pulmonary emphysema, unspecified emphysema type ([facility]) Inhale 2 puffs into [...] metFORMIN (GLUCOPHAGE) 1000 MG tabletIndications :Diabetic foot ([facility]) TAKE 1 TABLET BY [...] heart failure with p reserved ejection fraction ([facility]) 11/12/2018 Arthralgia of left hand 11/02/2018 Enchondroma of bone of hand, left 11/02/2018 Carpal tunnel syndrome on left 08/26/2018 Cryptogenic stroke ([facility]) 07/06/2018 Skin lesion of right arm 06/28/2018 Weakness 05/26/2018 Status post placement of implantable loop record er 10/13/2017 Overview (01/13/2018): Overview: [employer] Reveal Loop Recorder. Dx; Cryptogenic Stroke. DOI 10/12/[address] Willoughby[address] [facility] remote monitoring. TIA (transient ischemic attack) 10/06/2017 Mild emphysema ([facility]) 08/28/2017 Hepatic steatosis 08/28/2017 Memory loss 05/18/2017 Chest pain 04/30/2017 S/P coronary artery stent placement 12/17/2016 Hemorrhoids 10/03/2016 Hearing loss 08/01/2016 Decreased hearing 07/17/2016 Chronic nausea 03/27/2016 Diabetic foot ([facility]) 03/10/2016 Abdominal wall bulge 03/10/2016 CHF (congestive heart failure) ([facility]) 01/14/2016 Peripheral edema 12/19/2015 Tinnitus 11/08/2015 History of kidney stones 10/03/2015 Insomnia 05/07/2015 Chronic cough 03/20/2015 Hypertensive heart disease w ith congestive heart failure ([facility]) 02/20/2015 Overview (01/13/2018): Overview: Hypertensive heart disease with diastolic heart failure Coronary artery disease of n ative artery of [place] heart with stable angina pectoris 02/20/2015 Overview (01/13/2018): Overview: Coronary artery disease involving [place] coronary artery of [place] heart with other form of angina pectoris CVA, old, hemiparesis ([facility]) 02/21/20 15 Overview (01/13/2018): Overview: CVA, old, hemiparesis Dyslipidemia associated with type 2 diabetes mellitus ([facility]) 02/20/2015 Overview (01/13/2018): Overview: DM (diabetes mellitus) Overview: DM type 2 with diabetic dyslipidemia Mixed diabetic hyperlipidemi a associated with type 2 diabetes mellitus ([facility]) 02/20/2015 Overview (05/17/2021): DM [...] Overview: HTN (hypertension), benign Cerebrovascular accident (CVA) ([facility]) 08/23/2013 Hyperlipidemia 08/23/2013 Resolved Problems Problem Noted Date Diagnosed Date Resolved Date Left nephrolithiasis 10/07/2017 018 Encounter for screening for lung cancer 04/09/2017 06/28/2018 BMI 45.0-49.9, adult 10/03/2016 023 Morbid obesity 08/13/2016 05/15/2022 Encounter for preventive health examination 08/23/2013 06/28/2018 Encounters Date Type Department Care Team Description 07/06/2024 Telephone [facility] Internal [address] [address] Sandi Alfaro APNP Medication Request 07/04/2024 Scan [facility] SRVCS Scanned, Doc [facility] Skiver Machine Operator Report (SCAN)* 07/03/2024 Scan [facility] INFO SRVCS Scanned, Doc Med [facility] 07/02/2024 Scan [facility] INFO SRVCS Scanned, Doc Med Group 06/30/2024 Telephone [facility] Internal [address] [address] Sandi Alfaro APNP Advice 06/28/2024 Scan [facility] INFO SRVCS Scanned, Doc [facility] Image (SCAN) 06/21/2024 8:40 AM CDT Office Visit [facility] Internal [address] [address] Sandi Alfaro APNP TCM 06/21/2024 Telephone [facility] Internal [address] [address] Sandi Alfaro APNP Medication Problem 06/21/2024 Travel 06/15/2024 Scan [facility] INFO SRVCS Scanned, Doc [facility] MRI (SCAN); Echo (SCAN) 06/14/2024 Scan [facility] INFO SRVCS Scanned, Doc Med Group CT (SCAN); Image (SCAN) 06/13/2024 Scan [facility] INFO SRVCS Scanned, Doc [facility] Image (SCAN); Lab (SCAN) 05/31/2024 Telephone [facility] Internal [address] [address] Sandi Alfaro APNP Medication Request 05/05/2024 Scan [facility] INFO SRVCS Scanned, Doc Med [facility] 05/03/2024 Scan [facility] INFO SRVCS Scanned, Doc Med [facility] Skiver Machine Operator Report (SCAN)* 05/02/2024 Scan [facility] INFO [...] e alcohol) very rarely 6 beers/year [facility] Utilities Answer Date Recorded In the [...] often do you attend chur ch or jehovah's witness services? Never 05/12/2023 Do you belong to [...] Patient Health Questionnaire-2 Score 0 03/31/2024 [facility] - [...] place to sleep or slept in a intermediate (including now)? 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 Legal Sex Male 8:01 PM CDT Gender [...] Medical Group Family & Internal Medicine - [address] [phone] Sandi Alfaro APNP [address] [place] [address] Health Maintenance Due Date Last Done [...] Vaccine: 50+ Years Completed 06/28/2021 PHQ-2 (Physician [place]) Completed 03/31/2024 Meningococcal B Vaccine Aged Out No l onger eligible based on patient's age to complete this topic Meningococcal Vaccine Aged Out No shyam jose eligible based on patient's age to complete this topic RSV Immunizations Under 20 Months Aged Out No longer eligible based on patient's age to complete this topic Procedures Procedure Name Priority Date/Time Associated Diagnosis Comments COORDINATE MEASURING EQUIPMENT OPERATOR 07/04/2024 IMAGE GENERIC 06/28/2024 ECHO GENERIC (SCAN ORDER) 06/15/2024 MRI GENERIC 06/15/2024 CT GENERIC 06/14/2024 IMAGE GENERIC 06/14/2024 OUTSIDE LAB (SCAN ORDER) 06/13/2024 OUTSIDE LAB (SCAN ORDER) 06/13/2024 OUTSIDE PT/INR (SCAN ORDER) 06/13/2024 IMAGE GENERIC 06/13/2024 COORDINATE MEASURING EQUIPMENT OPERATOR 05/03/2024 OUTSIDE LAB (SCAN ORDER) Routine 05/01/2024 OUTSIDE LAB (SCAN ORDER) 05/01/2024 IMAGE GENERIC 05/01/2024 DIABETIC RETINOPATHY EXAM (NEGATIVE)(SCAN ORDER) Routine 04/27/2024 CT GENERIC 04/14/2024 OUTSIDE LAB (SCAN ORDER) 04/14/2024 OUTSIDE LAB (SCAN ORDER) 04/14/2024 HEMOGLOBIN, GLYCOSYLATED Routine 02/05/2024 Type 2 diabetes mellitus without complication, without long-term current use of insulin ([facility]) LIPID PANEL Routine 05/13/2023 6:00 [...] Recently Relevant to Health Maintenance Results * COORDINATE MEASURING EQUIPMENT OPERATOR (07/04/2024) Anatomical Region Laterality Modality Other 07/04/2024 us Doc [facility] Scanned SCANNING Final Resu lt * IMAGE GENERIC (06/28/2024) Only the most recent of4 resultswithin the time period is included. Anatomical Region Laterality Modality Other 06/28/2024 [facility] Group Scanned SCANNING Final Resu lt * MRI GENERIC (06/15/2024) Anatomical Region Laterality Modality Other 06/15/[address] [facility] Group Scanned SCANNING Final Resu lt * ECHO GENERIC (SCAN ORDER) (06/15/2024) Anatomical Region Laterality Modality Other 06/15/[address] [facility] Group Scanned SCANNING Final Resu lt * CT GENERIC (06/14/2024) Only the most recent of2 resultswithin the time period is included. Anatomical Region Laterality Modality Other 06/14/2024 us Doc [facility] Group Scanned SCANNING Final Resu lt * OUTSIDE PT/INR (SCAN ORDER) (06/13/2024) 06/13/2024 us Doc Med Group Scanned SCANNING Final Resu lt * OUTSIDE LAB (SCAN ORDER) (06/13/2024) Only the most recent of6 resultswithin the time period is included. 06/13/2024 us Doc [facility] Scanned SCANNING Final Resu lt * COORDINATE MEASURING EQUIPMENT OPERATOR (05/03/2024) Anatomical Region Laterality Modality Other 05/03/2024 us Doc Med Group Scanned SCANNING Final Resu lt * DIABETIC RETINOPATHY EXAM (NEGATIVE) (04/27/2024) us Doc [facility] Group Scanned SCANNING Final Resu lt Performing Organization Address City/[facility]/ZIP Co de Phone Number [facility] * HEMOGLOBIN, GLYCOSYLATED (02/05/2024) HGB A1C 6.5 % [facility] 02/05/2024 Sandi [facility]YN[facility] LABOR[facility] Final Resul t Performing Organization Address [facility]/ZIP Co de Phone Number [facility] [address] [place] [address], [place] * (ABNORMAL) LIPID PANEL (05/13/2023 6:00 AM CDT) CHOLESTEROL 87 <200 MG/DL 05/13/2023 7:18 AM CDT [facility] TRIGLYCERIDES 213(H) <150 MG/DL 05/13/2023 7:18 AM CDT [facility] HDL 24(L) >40.0 MG/DL 05/13/2023 7:18 AM CDT [facility] LDL (CALCULATED) 20 <100 MG/DL 05/13/2023 7:18 AM CDT [facility] NON HDL CHOLESTEROL 63 <130 MG/DL 05/13/2023 7:18 AM CDT [facility] CHOL/HDL RATIO 3.6 0.0 - 4.5 05/13/2023 7:18 AM CDT [facility] VLDL CALCULATION 43 5 - 55 MG/DL 05/13/2023 7:18 AM CDT [facility] LIPID INTERPRETATION 05/13/2023 7:18 AM T [facility] Comment: NIH CONCENSUS REPORT RECOMMENDATIONS: ADULT CHILD LOW RISK: CHOLESTEROL <200 <170 TRIGLYCERIDE <150 --- HDL >=60 --- LDL <100 <110 BORDERLINE: CHOLESTEROL 200-239 170-199 TRIGLYCERIDE 150-199 --- HDL 40-59 --- LDL 100-159 110-129 HIGH RISK: CHOLESTEROL >=240 >=200 TRIGLYCERIDE >=200 --- HDL <40 --- LDL >=160 >=130 05/13/2023 6:00 AM CDT us Ayanna Bellamy MD LABORATORY Final Re sult [id number]|2024-07-12 18:29:00|2024-07-12 18:29:00|XMS_ITS|BK[facility] DAEMON|External Medical Summaries|[id number]|" Encounter Summary Created on: July 12, 2024 Vini Zambrano : 1960 Sex: Male Author Organization [facility] Address [address] [place] [address] Care Team Providers Care Police Communications Operator Name Role Phone Sandi Alfaro KRISTYJOVITA Primary Care Provider Cheryl Huston RN Unavailable [...] e alcohol) very rarely 6 beers/year [facility] Utilities Answer Date Recorded In the past 12 months has e [employer], gas, oil, or water [employer] threatened to shut off services in your [...] often do you attend chur ch or jehovah's witness services? Never 05/12/2023 Do you belong to [...] Patient Health Questionnaire-2 Score 0 03/31/2024 [facility] - [...] place to sleep or slept in a intermediate (including now)? 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 Answer Date of Assessment Author Status No 05/12/2023 10:03 PM ANGELT Tyrel Dawkins RN Active * Do you have serious difficulty walking or climbing stairs? Answer Date of Assessment Author Status Yes 05/12/2023 10:03 PM ANGELT Tyrel Dawkins RN Active * Do you have difficulty dressing or bathing? Answer Date of Assessment Author Status No 05/12/2023 10:03 PM ANGELT Tyrel Dawkins RN Active * Because of a physical, mental, or emotional condition, do you have difficulty doing errands alone such as visiting a doctor's office or shopping? Answer Date of Assessment Author Status Yes 05/12/2023 10:03 PM AGNELT Tyrel Dawkins RN Active documented as of this encounter Mental Status * Because of a physical, mental, or emotional condition, do you have serious difficulty concentrating, remembering, or making decisions? Answer Entry Date Author Status No 05/12/2023 10:03 PM ANGELT Tyrel Dawkins RN Active documented in this encounter Plan of Treatment Upcoming Encounters Date Type Department Care Team (Late st Contact Info) Description 07/20/2024 8:40 AM CDT Office Visit [facility] Medical Group Family & Internal Medicine - [address] [address] Sandi Alfaro APNP [facility] [place] [address] documented as of this encounter Visit Diagnoses Not on filedocumented in this encounter Additional Health Concerns Assessment Noted Time PHQ-9 Depression Total Score: 0 05/21/19 24 11:21 AM CDT documented as of this encounter Care Teams Police Communications Operator Relationship Specialty Start Date End Date Sandi Alfaro APNP Family & Internal Medicine [address] [address] PCP - General ADVANCED PRACTICE CRIB PAD MAKER 04/28/17 Cheryl Huston, asbestos remover (Ambulatory) REGISTERED NURSE 03/23/19 documented as of this encounter "
--- OUTSIDE RECORDS SUMMARY | 2024-07-12 18:29 | XMS_ITS | Clinical Summary ---
Author Organization [facility] Address [address] [place] [address] Care Team Providers Care Manager Adobe Name Role Phone Sandi Alfaro SEARCH LEAD-CUSTOM DRESSMAKER Primary Care Provider Source Comments [facility],non-owned Affiliates and Associated Physician Practices is amultiple site organization consisting of ambulatory clinics and hospital sitesin [place], [place], [place] and [place]. This disclosure is being madepursuant to the Care Everywhere program and may not contain all information available regarding this patient. Last updated 17.[facility] Allergies No known active allergies Medications * [...] on file Legal Sex Male 5:35 PM TECHNICAL SOLUTIONS DIRECTOR Gender Identity Not on file Sexual Orientation [...] ve Non-react kendell 05/26/2018 5:12 PM CDT [facility] Comment: Neither HIV-1 p24 Antigen nor HIV-1/HIV-2 Antibodies are detected. Blood BLOOD SPECIMEN / Unknown Venipuncture / Unknown 05/26/2018 4:21 PM CDT 05/26/2018 4:26 PM CDT Jim Ann MD LAB - HEMATOLOGY ORDERABLES F inal Result Performing Organization Address [facility] Co de Phone Number [address] [phone] * HEPATITIS C AB SCREEN RFLX NAAT QUANT (05/26/2018 4:21 PM CDT) Pathologist [facility] Hepatitis C Antibody Non-react ekndell Non-reac tive 05/26/2018 5:13 PM CDT [facility] [...] ORDERABLES Fi nal Result Performing Organization Address City/[facility]/ZIP Co de Phone Number [address] [address], [place] [phone] from Last 3 Months or Most Recently Relevant to Health Maintenance [place] [address] MEDICAID - OUT OF STATE MEDICARE MEDICAID [place] Advance Directives * Full Code (Latest Code Status on File) Date Activated Date Inactivated Comments 05/26/2018 2:01 PM 05/28/2018 11:56 AM Care Teams Manager Adobe Relationship Specialty Start Date End Date Sandi Alfaro APRN-CUSTOM DRESSMAKER [address] [place] [address] PCP - General 08/27/21
--- OUTSIDE RECORDS SUMMARY | 2024-07-12 18:29 | XMS_ITS | Encounter Summary ---
Author Organization [facility] Address [address] [place] [address] Care Team Providers Care Direct Mail Manager Name Role Phone Sandi Alfaro Primary Care Provider [phone] Sandi Alfaro Unavailable [phone] Cheryl Huston RN Unavailable Unavailable Encounter Details Date Type Department Care Team (Late st Contact Info) Description 05/13/2021 [employer] Message Enc [facility] Multispecialty Care - [facility] [address] [place] [address] Eliza, [facility] Provider CPAP Social History Tobacco Use Types Packs/Day Years Used Date Smoking Tobacco: Every Day Cigarettes 0.3 40 Smokeless Tobacco: Never Comments:want to quit but gary s alot of stress right [id number] smoking about 3-4 cigaretts a day Alcohol Use Standard Drinks/Week Comments Yes 0 (1 standard drink = 0.6 oz pur e alcohol) very rarely 6 beers/year PHQ-2 Answer Date Recorded PHQ-2 Score - If the patient scores above 3, please move on to questions 3-9 4 01/23/2021 Sex and Gender Information Value Date Recorded Sex Assigned at Male 03/31/2024 8:58 AM SERVICE ORDER DISPATCHER Legal Sex Male 8:01 PM CDT Gender [...] HOSPITAL Medical Group Family & Internal Medicine [address] [phone] Sandi Alfaro APNP [address] [place] [address] documented as of this encounter Visit Diagnoses Not on filedocumented in this encounter Additional Health Concerns Infection Onset Date Last Indicated Resolved Time COVID-19 Rule Out 05/12/2023 05/12/2023 05/13/2023 12:01 AM CDT Influenza - Seasonal 05/14/2023 05/14/2023 024 12:32 AM CDT Assessment Noted Time PHQ-9 Depression Total Score: 7 01/24/20 21 1:37 PM SERVICE ORDER DISPATCHER documented as of this encounter Care Teams Direct Mail Manager Relationship Specialty Start Date End Date Sandi Alfaro APNP Family & Internal Medicine [address] [address] PCP - General ADVANCED PRACTICE DOG BEHAVIORIST 04/28/17 Sandi Alfaro APNP [address] [place] [address] PCP - Med Group - MSSP Attributed Provider 03/02/15 03/01/22 Cheryl Huston, computerized mill recorder (Ambulatory) REGISTERED NURSE 03/23/19 documented as of this encounter
--- NOTE | 2024-07-12 18:38 | ADMGEN ---
This patient, Vini Zambrano, was admitted to IMU Room 204-01. @ [phone]. Patient/family oriented to hospital policies and general routines including ID bracelet, bed and alarms, visiting hours, pain management, procedures, bathroom and other care routines, personal items, smoking policy, room service/diet, and visiting hours. Information on how to activate the Rapid Response Team has been discussed. Patient/Family are encouraged to report perceived risks to care and to ask questions if they do not understand what they are told or what they should do.
--- NOTE | 2024-07-12 20:00 | ECG_ITS ---
Test Date: 2024-07-12 19:54:47 Measurements Intervals [place] Rate: 76 P: 59 IN: 175 QRS: 21 QRSD: 162 T: 30 QT: 427 QTc: 480 Interpretive Statements SINUS RHYTHM RIGHT BUNDLE BRANCH BLOCK [120+ ms QRS DURATION, UPRIGHT V1, 40+ ms S IN I/aVL/V4/V5/V6] Compared to ECG 07/12/2024 17:06:17 No significant changes Electronically Signed On 07-13-2024 11:52:06 CDT by Julio Richardson M.D.
[2024-07-12 20:10] LABS: Glucose Point of Care 159 mg/dl (65-105)
[2024-07-12 20:34] LABS: Troponin I < 0.012 ng/mL (0.000-0.034)
[2024-07-12 21:00] LABS: Potassium 4.3 mmol/L (3.4-5.0)
--- NOTE | 2024-07-12 21:46 | P.HP_ITS ---
H&P: HPI History of Present Illness Date/Time: 07/12/24 21:46 Chief Complaint: Accidental drug overdose Narrative: 64 year old male pt with PMH of it is coronary artery disease status post PCI now x3, TIA, hypertension, peripheral neuropathy, type 2 diabetes mellitus, DVT, peptic ulcer disease, hyperlipidemia, sleep apnea, GERD, COPD, heart failure, depression who was a previous smoker that stopped in 2023 after a 30 pack-year history who comes to the emergency room for accident low dose of Entresto and spironolactone and ranolazine. Of note, the Patient had PCI to the mid LAD for 60% stenosis on June 17, 2024, here at our facility. He was recently admitted on 07/02/2024 because he was not able to get some of his medications. During the admission on 07/02/2024, the patient again went for cardiac catheterization on 07/04 due to elevated troponin and chest pain, which showed stable coronary artery disease compared to prior angiogram, with patent stents in the LAD and LCX. Slow flow was noted on the initial RCA angiogram, and there was a significantly elevated left ventricular end-diastolic pressure of 36 mmHg. And cardiology believed he had imaged a few doses of Lasix as he had trouble getting a refill, which explains why LVEDP is elevated. Pertinent ED labs: WBC 8.2, hemoglobin 14.6, hematocrit 43.9, platelet 142, sodium 137, potassium 4.1, carbon dioxide 21, anion gap 14, creatinine 1.51 (baseline 1.2), GFR 47, glucose 185 Troponin less than 0.012 Chest x-ray shows subsegmental bibasilar atelectasis/consolidation. Possible bilateral effusion The Patient is admitted in the setting of accidental overdose of Entresto, spironolactone, and ranolazine. Since the Patient is not in CHF exacerbation, the Patient will be gently hydrated for lower blood pressure. Midodrine will be added, and it can be discontinued during discharge. His last echocardiogram shows an ejection fraction of 60-65%. Due to his recent stent placement, he will continue his home med aspirin, Plavix, and Xarelto. During the evaluation, the Patient reported he was keeping the medications for the coming week, 7 days, and he accidentally took the wrong short glass, which had 7 days' medications for Jardiance, spironolactone, and ranolazine. Poison control on board and do not recommend EKG, magnesium q.4 hours. Repeat in the a.m. EKG shows sinus rhythm. Right bundle-branch block, which is present in the previous EKGs Review of Systems Review of Systems: A 10 system review of systems was completed on the patient and is negative except for what is stated in the HPI. Nursing and ancillary documentation was reviewed. [facility] Past Medical History Medical History Hypertension Coronary artery disease Stent to the distal circumflex and Left anterior descending in 2014. Left anterior descending stent in 04/2015. COVID Transient ischemic attack Diabetic peripheral neuropathy Peripheral vascular disease Deep venous thrombosis Gastric ulcer Obstructive sleep apnea on CPAP Hyperlipidemia Type 2 diabetes mellitus Gastroesophageal reflux disease Chronic obstructive pulmonary disease Cerebrovascular accident Mild left-sided weakness. Congestive heart failure BMI greater than 40 Chronic anticoagulation Hydronephrosis Psoriasis Depression Fracture of fifth toe, right, closed Kidney stones Pneumonia Myocardial infarction Seasonal allergies Surgical History Surgical History History of coronary artery stent placement History of tonsillectomy History of cholecystectomy History of lithotripsy History of rectal polypectomy History of cardiac catheterization 2 stents Family History Family History Mother Diabetes mellitus Arthritis Kidney stones Coronary artery disease Father Acute myocardial infarction Heart disease Kidney stones Hypertension Coronary artery disease Sibling Coronary artery disease Heart disease Hx of CABG Social History Social History Social History: Surrogate decision maker: Rena Dodd, friend. Code status: Full code. Smoking packs per day: 1 Smoking cigarettes per day: 20.0 Years smoked: 45 Smoking pack-years: 45.00 Smoking status: Former smoker Tobacco type: cigarettes Second hand tobacco smoke exposure: No Smoking end date: 02/17/24 Alcohol intake: never Drinks per week: 0 Substance use: never Substance use type: does not use Last use: 10/01/2023 Do You Feel Safe in your Home?: Yes Lack of Transportation: No Lack of Food: Never True Current Housing: I Have Housing Concerned About Future Housing: No Difficulty Paying Gas/Electric Bills: No Difficulty Paying for Meds: No Currently Unemployed: No Education: High School Diploma/GED Difficulty w/ Childcare or Family Care: No Living arrangements: with roommate(s) Additional living arrangements comments: The patient lives in [place] with a roommate. He has no children. Occupation/Education: other Additional occupation/education comments: Disabled. Spiritual care concerns: No Meds Home Medications and Allergies Home Medications Medication Instructions Recorded Confirmed Type amlodipine 10 mg tablet 10 mg PO DAILY 01/24/19 07/12/24 History bupropion HCl 150 mg tablet,12 hr 150 mg PO Q12H 01/24/19 07/12/24 History sustained-release (Wellbutrin SR) metformin 1,000 mg tablet 1,000 mg PO BID 01/24/19 07/12/24 History isosorbide mononitrate 60 mg 120 mg PO DAILY 01/09/20 07/12/24 History tablet,extended release 24 hr alprazolam 0.25 mg tablet 0.25 mg PO HS 08/21/21 07/12/24 History aspirin 81 mg chewable tablet 81 mg PO DAILY 09/29/21 07/12/24 History (Children's Aspirin) carvedilol 12.5 mg tablet (Coreg) 12.5 mg PO Q12HR #60 tabs 05/04/24 07/12/24 Rx empagliflozin 10 mg tablet 10 mg PO DAILY #30 tabs 05/04/24 07/12/24 Rx (Jardiance) nitroglycerin 0.4 mg sublingual 0.4 mg sublingual Q5MIN PRN Chest 05/04/24 07/12/24 Rx tablet (Nitrostat) Pain #26 tabs omeprazole 40 mg capsule,delayed 40 mg PO DAILY #30 caps 05/04/24 07/12/24 Rx release tamsulosin 0.4 mg capsule 0.4 mg PO HS #30 caps 05/04/24 07/12/24 Rx atorvastatin 80 mg tablet 80 mg PO DAILY 06/13/24 07/12/24 History dulaglutide 3 mg/0.5 mL 3 mg subcut WEEKLY 06/13/24 07/12/24 History subcutaneous pen injector (Trulicity) furosemide 40 mg tablet 40 mg PO DAILY 06/13/24 07/12/24 History clopidogrel 75 mg tablet 75 mg PO QAM #30 tabs 06/17/24 07/12/24 Rx budesonide 160 mcg-glycopyr 9 2 inh inhalation BID 06/28/24 07/12/24 History mcg-formot 4.8 mcg/actuation HFA inhaler (Breztri Aerosphere) ranolazine 500 mg tablet,extended 500 mg PO Q12H #30 tabs 07/05/24 07/12/24 Rx release,12 hr sacubitril 24 mg-valsartan 26 mg 1 tab PO Q12HR #30 tabs 07/05/24 07/12/24 Rx tablet (Entresto) spironolactone 25 mg tablet 25 mg PO QAM #30 tabs 07/05/24 07/12/24 Rx rivaroxaban 2.5 mg tablet (Xarelto) 2.5 mg PO Q12H 07/12/24 07/12/24 History Allergies Allergy/AdvReac Type Severity Reaction Status Date / Time No Known Allergies Allergy Unknown Verified 07/02/24 15:25 Vital Signs Vital Signs - 24 hr 07/12/24 14:22 07/12/24 15:13 07/12/24 15:13 Temperature 98.3 F Pulse Rate 87 Respiratory Rate 18 20 Blood Pressure 109/67 Pulse Oximetry 94 96 Oxygen Delivery Room Air 07/12/24 15:13 07/12/24 16:00 07/12/24 17:30 Temperature Pulse Rate 81 81 79 Respiratory Rate 26 H 18 22 H Blood Pressure 102/70 104/61 98/64 L Pulse Oximetry 95 95 94 Oxygen Delivery 07/12/24 18:45 07/12/24 18:45 07/12/24 20:00 Temperature 97.9 F 97.4 F L Pulse Rate 81 78 80 Respiratory Rate 24 H 16 Blood Pressure 96/61 L 89/54 L Pulse Oximetry 97 96 Oxygen Delivery 07/12/24 20:00 07/12/24 20:00 Temperature Pulse Rate 78 78 Respiratory Rate 16 Blood Pressure Pulse Oximetry 96 Oxygen Delivery Room Air Exam Narrative: GENERAL: Well-appearing, well-nourished, and in no acute distress. HEAD: Normocephalic, atraumatic. EYES: PERRLA and EOMI. ENT: Nares clear, no rhinorrhea or epistaxis. Mucous membranes moist. NECK: Supple. CHEST: Clear to auscultation. No respiratory distress. HEART: Regular rate and rhythm. No murmur heard. Normal peripheral pulses. ABDOMEN: Soft, nontender, nondistended, normal active bowel sounds. EXTREMITIES: Normal range of motion. No edema. SKIN: Warm, dry, no rash. NEURO: No focal deficits. Alert and oriented x3. PSYCH: Normal mood and affect. H&P: Results Labs Labs: Short CBC 07/12/24 Range/Units 15:09 WBC 8.2 (4.5-10.0) K/mm3 Hgb 14.6 (14.0-18.0) g/dL Hct 43.9 (42.0-52.0) % Plt Count 142 L (150-375) k/mm3 BMP 07/12/24 07/12/24 07/12/24 15:08 15:08 16:49 Sodium 137 Potassium 4.1 Cancelled 4.3 Chloride 102 Carbon Dioxide 21 L BUN 24 H Creatinine 1.51 H Glucose 185 H Calcium 9.1 Cardiac Enzymes 07/12/24 07/12/24 07/12/24 Range/Units 15:08 16:49 20:05 Troponin I < 0.012 < 0.012 < 0.012 (0.000-0.034) ng/mL Liver Function 07/12/24 Range/Units 15:08 Total Bilirubin 0.6 (0.2-1.3) mg/dL AST 40 (17-59) U/L ALT 53 H (6-50) U/L Alkaline Phosphatase 71 (38-126) U/L Albumin 4.7 (3.5-5.1) g/dL Urine 07/12/24 Range/Units 17:59 Urine Color Yellow (Yellow) Urine Appearance Clear (Clear) Urine pH 5.0 (5.0-9.0) Ur Specific [place] 1.018 (1.001-1.035) Urine Protein 1+ H (Negative) mg/dL Urine Glucose (UA) 3+ H (Negative) mg/dL Assessment and Plan Assessment and plan (1) Drug overdose: Code(s): T50.901A - Poisoning by unspecified drugs, medicaments and biological substances, accidental (unintentional), initial encounter Status: Acute (2) HTN (hypertension): Qualifiers: Hypertension type: primary hypertension Qualified Code(s): I10 - Essential (primary) hypertension Code(s): I10 - Essential (primary) hypertension Status: Chronic (3) Congestive heart failure: Code(s): I50.9 - Heart failure, unspecified Status: Acute (4) Coronary artery disease: Qualifiers: Associated angina: with other forms of angina Coronary Disease- Associated Artery/Lesion type: [place] artery [place] vs. 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 t.i.d.. Can be discontinued during discharge Strict I and O's Total received Order BNP and chest x-ray in a.m. Poison control not recommend serial EKG, potassium and magnesium Will repeat potassium, magnesium and EKG in a.m. Potassium 4.3, magnesium 2, keep potassium >n 4 and magnesium > 2 Diabetes Sliding scale Hypoglycemic protocol TIA/stent/CAD Continue Xarelto,aspirin and Plavix TAMIR Continue CPAP DVT prophylaxis: Xarelto 2.5 mg p.o. b.i.d. Hospitalist MIPS Advance Care Plan I have confirmed that the patient's Advanced Care Plan is present, code status is documented, or surrogate decision maker is listed in patient medical record.: Yes Medication Reconciliation I have utilized all available resources to obtain, update and review the patients current medications (includes all prescriptions, OTC, herbals, cannabis, and nutritional supplements).: Yes
[2024-07-12] MEDS: SODIUM CHLORIDE 0.9% IV 1,000 ML 100 ML IV CONT (22:55)
[2024-07-12] MEDS: buPROPion HCL SR (12 HR) 150 MG TAB PO (22:55)
[2024-07-12] MEDS: RIVAROXABAN 2.5 MG TABLET PO (22:55)
[2024-07-12] MEDS: MIDODRINE HCL 10 MG TABLET PO (22:55)
[2024-07-12] MEDS: TAMSULOSIN HCL 0.4 MG CAPSULE PO (22:55)
[2024-07-12] MEDS: ALPRAZolam (*CRX) 0.25 MG TABLET PO (23:16)
[2024-07-13] VITALS (17 sets, daily range): BP systolic 110–139; BP diastolic 68–72; PULSE 71–84; RESP 18–20; TEMP 36.4–36.8; O2SAT 90–100
[2024-07-13 03:10] LABS: Amphetamine Screen Urine Negative (Negative); Barbiturate Screen Urine Negative (Negative); Benzodiazepines Screen Urine Negative (Negative); Cannabinoid Screen Urine Negative (Negative); Cocaine Screen Urine Negative (Negative); Methadone Screen Urine Negative (Negative); Opiate Screen Urine Negative (Negative); Phencyclidine Screen Urine Negative (Negative)
[2024-07-13 04:19] LABS: Hemoglobin 13.2 g/dL (14.0-18.0); Immature Platelet Fraction Pct 6.5 % (0.9-11.2); Mean Corpuscular Hemoglobin 30.3 pg (26-34); Mean Corpuscular Volume 91.7 fl (80-100); Mean Platelet Volume 11.4 fl (7.4-10.4); Platelet Count Result 119 k/mm3 (150-375); Red Blood Count 4.36 M/mm3 (4.6-6.20); Red Cell Distribution Width 13.8 % (11.5-14.5); White Blood Count 6.8 K/mm3 (4.5-10.0)
[2024-07-13 04:27] LABS: Alanine Aminotransferase 46 U/L (6-50); Alkaline Phosphatase 61 U/L (38-126); Anion Gap 12 mmol/L (4-12); Aspartate Amino Transferase 34 U/L (17-59); Bilirubin,Total 0.5 mg/dL (0.2-1.3); Blood Urea Nitrogen 25 mg/dL (9-20); Calcium 8.6 mg/dL (8.4-10.2); Carbon Dioxide 21 mmol/L (22-30); Chloride 105 mmol/L (98-107); Estimated CRCL calculation 55 ml/min; Estimated Glomerular Filt Rate 40; Glucose 153 mg/dL (65-110); Magnesium 1.9 mg/dL (1.6-2.3); Potassium 3.8 mmol/L (3.4-5.0); Sodium 138 mmol/L (137-145)
[2024-07-13 04:36] LABS: NT Pro B Type Natriuretic Pept < 20 pg/mL (19.9-100)
[2024-07-13 07:57] LABS: Glucose Point of Care 163 mg/dl (65-105)
[2024-07-13] MEDS: FLUTICASONE/UMECLIDIN/VILANTER 100-62.5-25 MCG ELLIPTA 1 PUFF INHALATION (07:58)
--- NOTE | 2024-07-13 08:00 | ECG_ITS ---
Test Date: 2024-07-13 08:06:59 Measurements Intervals [place] Rate: 78 P: 44 SC: 175 QRS: 3 QRSD: 165 T: 32 QT: 442 QTc: 504 Interpretive Statements SINUS RHYTHM RIGHT BUNDLE BRANCH BLOCK [120+ ms QRS DURATION, UPRIGHT V1, 40+ ms S IN I/aVL/V4/V5/V6] Compared to ECG 07/12/2024 19:54:47 No significant changes Electronically Signed On 07-13-2024 11:58:36 CDT by Julio Richardson M.D.
[2024-07-13] MEDS: SODIUM CHLORIDE 0.9% IV 1,000 ML 100 ML IV CONT (09:06)
[2024-07-13] MEDS: ATORVASTATIN 40 MG TABLET 80 MG PO (09:07)
[2024-07-13] MEDS: buPROPion HCL SR (12 HR) 150 MG TAB PO ×2 (09:08→20:54)
[2024-07-13] MEDS: CLOPIDOGREL BISULFATE 75 MG TABLET PO (09:08)
[2024-07-13] MEDS: RIVAROXABAN 2.5 MG TABLET PO ×2 (09:08→20:55)
[2024-07-13 11:48] LABS: Glucose Point of Care 180 mg/dl (65-105)
[2024-07-13 15:47] LABS: Glucose Point of Care 134 mg/dl (65-105)
--- NOTE | 2024-07-13 16:12 | P.PNIM_ITS ---
Progress Note: A&P Assessment and Plan (1) Drug overdose: Code(s): T50.901A - Poisoning by unspecified drugs, medicaments and biological substances, accidental (unintentional), initial encounter Status: Acute (2) HTN (hypertension): Qualifiers: Hypertension type: primary hypertension Qualified Code(s): I10 - Essential (primary) hypertension Code(s): I10 - Essential (primary) hypertension Status: Chronic (3) Congestive heart failure: Code(s): I50.9 - Heart failure, unspecified Status: Acute (4) Coronary artery disease: Qualifiers: Coronary Disease-Associated Artery/Lesion type: [place] artery [place] vs. transplanted heart: [place] heart Associated angina: with other forms of angina Qualified Code(s): I25.118 - Atherosclerotic heart disease of [place] coronary artery with other forms of angina pectoris Code(s): I25.10 - Atherosclerotic heart disease of [place] coronary artery without angina pectoris Status: Acute (5) HLD (hyperlipidemia): Qualifiers: Hyperlipidemia type: unspecified Qualified Code(s): E78.5 - Hyperlipidemia, unspecified Code(s): E78.5 - Hyperlipidemia, unspecified Status: Chronic (6) Chronic anticoagulation: Code(s): Z79.01 - FPC (current) use of anticoagulants Status: Chronic Plan Drug Overdose/CHF Hold CHF medications Consult care coordination Need safe discharge Needs medication education DC Midodrine and IVF as BP stable Strict I and O's Will repeat potassium, magnesium and EKG in a.m. Potassium 4.3, magnesium 2, keep potassium >n 4 and magnesium > 2 Diabetes Sliding scale Hypoglycemic protocol TIA/stent/CAD Continue Xarelto,aspirin and Plavix TAMIR Continue CPAP DVT prophylaxis: Xarelto 2.5 mg p.o. b.i.d. Subjective Date/time seen: 07/13/24 16:12 Interval history: per HPI: 64 year old male pt with PMH of it is coronary artery disease status post PCI now x3, TIA, hypertension, peripheral neuropathy, type 2 diabetes mellitus, DVT, peptic ulcer disease, hyperlipidemia, sleep apnea, GERD, COPD, heart failure, depression who was a previous smoker that stopped in 2023 after a 30 pack-year history who comes to the emergency room for accident low dose of Entresto and spironolactone and ranolazine. Of note, the Patient had PCI to the mid LAD for 60% stenosis on June 17, 2024, here at our facility. He was recently admitted on 07/02/2024 because he was not able to get some of his medications. During the admission on 07/02/2024, the patient again went for cardiac catheterization on 07/04 due to elevated troponin and chest pain, which showed stable coronary artery disease compared to prior angiogram, with patent stents in the LAD and LCX. Slow flow was noted on the initial RCA angiogram, and there was a significantly elevated left ventricular end-diastolic pressure of 36 mmHg. And cardiology believed he had imaged a few doses of Lasix as he had trouble getting a refill, which explains why LVEDP is elevated. Pertinent ED labs: WBC 8.2, hemoglobin 14.6, hematocrit 43.9, platelet 142, sodium 137, potassium 4.1, carbon dioxide 21, anion gap 14, creatinine 1.51 (baseline 1.2), GFR 47, glucose 185 Troponin less than 0.012 Chest x-ray shows subsegmental bibasilar atelectasis/consolidation. Possible bilateral effusion The Patient is admitted in the setting of accidental overdose of Entresto, spironolactone, and ranolazine. Since the Patient is not in CHF exacerbation, the Patient will be gently hydrated for lower blood pressure. Midodrine will be added, and it can be discontinued during discharge. His last echocardiogram shows an ejection fraction of 60-65%. Due to his recent stent placement, he will continue his home med aspirin, Plavix, and Xarelto. During the evaluation, the Patient reported he was keeping the medications for the coming week, 7 days, and he accidentally took the wrong short glass, which had 7 days' medications for Jardiance, spironolactone, and ranolazine. Poison control on board and do not recommend EKG, magnesium q.4 hours. Repeat in the a.m. EKG shows sinus rhythm. Right bundle-branch block, which is present in the previous EKGs 07/13/24 Patient was seen and examined at bedside. he is feeling fine. Denies any chest pain, shortness off breath, Abd pain, nausea vomiting. His BP stable. will DC IVF and midodrine. continue to monitor Review of Systems Review of Systems: A 10 system review of systems was completed on the patient and is negative except for what is stated in the HPI. Nursing and ancillary documentation was reviewed. Exam Narrative: GENERAL: Well-appearing, well-nourished, and in no acute distress. HEAD: Normocephalic, atraumatic. EYES: PERRLA and EOMI. ENT: Nares clear, no rhinorrhea or epistaxis. Mucous membranes moist. NECK: Supple. CHEST: Clear to auscultation. No respiratory distress. HEART: Regular rate and rhythm. No murmur heard. Normal peripheral pulses. ABDOMEN: Soft, nontender, nondistended, normal active bowel sounds. EXTREMITIES: Normal range of motion. No edema. SKIN: Warm, dry, no rash. NEURO: No focal deficits. Alert and oriented x3. PSYCH: Normal mood and affect. Objective Data Vital Signs Vital Signs: Vital Signs - 24 hr 07/12/24 17:30 07/12/24 18:45 07/12/24 18:45 Temperature 97.9 F Pulse Rate 79 81 78 Respiratory Rate 22 H 24 H Blood Pressure 98/64 L 96/61 L Pulse Oximetry 94 97 Oxygen Delivery 07/12/24 20:00 07/12/24 20:00 07/12/24 20:00 Temperature 97.4 F L Pulse Rate 80 78 78 Respiratory Rate 16 16 Blood Pressure 89/54 L Pulse Oximetry 96 96 Oxygen Delivery Room Air 07/12/24 22:00 07/12/24 22:41 07/12/24 23:10 Temperature Pulse Rate 80 80 72 Respiratory Rate 16 Blood Pressure Pulse Oximetry 95 95 Oxygen Delivery Autopap Autopap 07/12/24 23:10 07/12/24 23:29 07/13/24 02:00 Temperature 97.6 F Pulse Rate 72 74 72 Respiratory Rate 18 Blood Pressure 99/51 L Pulse Oximetry 100 Oxygen Delivery 07/13/24 02:15 07/13/24 04:00 07/13/24 04:00 Temperature 97.5 F L Pulse Rate 78 76 74 Respiratory Rate 18 18 Blood Pressure 125/72 Pulse Oximetry 96 96 96 Oxygen Delivery Autopap Autopap 07/13/24 04:00 07/13/24 06:00 07/13/24 08:00 Temperature 98.3 F Pulse Rate 74 74 75 Respiratory Rate 20 Blood Pressure 134/70 Pulse Oximetry 95 Oxygen Delivery 07/13/24 08:00 07/13/24 08:01 07/13/24 10:00 Temperature Pulse Rate 84 81 Respiratory Rate Blood Pressure Pulse Oximetry 97 Oxygen Delivery Room Air 07/13/24 11:39 07/13/24 12:00 07/13/24 13:57 Temperature 97.5 F L Pulse Rate 80 84 80 Respiratory Rate 20 Blood Pressure 124/70 Pulse Oximetry 90 Oxygen Delivery 07/13/24 15:48 Temperature 98.1 F Pulse Rate 77 Respiratory Rate 20 Blood Pressure 135/68 Pulse Oximetry 99 Oxygen Delivery Intake/Output Intake/Output: Intake & Output 07/10/24 07/11/24 07/12/24 07/13/24 23:59 23:59 23:59 23:59 Intake Total 2800 Output Total 2000 Balance 800 Meds/Results Medications: Active Medications Generic Name Dose Route Start Last Admin Trade Name Freq PRN Reason Stop Dose Admin Alprazolam 0.25 mg 07/12/24 23:10 07/12/24 23:16 Alprazolam (*Crx) 0.25 Mg Tablet PO 0.25 mg HS BUZZ Administration Aspirin 81 mg 07/13/24 09:00 07/13/24 09:21 Aspirin 81 Mg Chewable Tablet PO Not Given DAILY BUZZ Atorvastatin Calcium 80 mg 07/13/24 09:00 07/13/24 09:07 Atorvastatin 40 Mg Tablet PO 80 mg DAILY BUZZ Administration Bupropion HCl 150 mg 07/12/24 22:15 07/13/24 09:08 Bupropion Hcl Sr (12 Hr) 150 Mg Tab PO 150 mg Q12HR BUZZ Administration Clopidogrel Bisulfate 75 mg 07/13/24 09:00 07/13/24 09:08 Clopidogrel Bisulfate 75 Mg Tablet PO 75 mg QAM BUZZ Administration Dextrose 12.5 gm 07/12/24 22:18 Dextrose 50% 25 Gm/50 Ml Syringe IV PUSH PRN PRN Hypoglycemia Protocol Fluticasone/Umeclidinium/Vilanterol 1 puff 07/13/24 08:00 07/13/24 07:58 Fluticasone/Umeclidin/Vilanter 100-62.5-25 Mcg Ellipta INHALATION 1 puff DAILYRT BUZZ Administration Glucagon 1 mg 07/12/24 22:18 Glucagon For Inj 1 Mg Vial IM PRN PRN Hypoglycemia Protocol Glucose 15 gm 07/12/24 22:18 Glucose Oral Gel 15 Gm Of Glucse In 37.5 Gm Tube PO PRN PRN Hypoglycemia Protocol Dextrose 1,000 mls @ 100 mls/hr 07/12/24 22:18 Dextrose 5% 1,000 Ml IVPB PRN PRN Hypoglycemia Protocol Insulin Aspart 2 - 5 units 07/13/24 08:00 07/13/24 11:32 Insulin Aspart (*Bkc) 100 Units/Ml SUB-Q Not Given TIDWM BUZZ Protocol Insulin Aspart 1 - 2 units 07/13/24 21:00 Insulin Aspart (*Bkc) 100 Units/Ml SUB-Q HS BUZZ Protocol Non-Formulary Medication 3 mg 07/19/24 09:00 Dulaglutide [Trulicity] SUB-Q 08/18/24 08:59 WEEKLY BUZZ Rivaroxaban 2.5 mg 07/12/24 22:15 07/13/24 09:08 Rivaroxaban 2.5 Mg Tablet PO 2.5 mg Q12HR BUZZ Administration Tamsulosin HCl 0.4 mg 07/12/24 22:20 07/12/24 22:55 Tamsulosin Hcl 0.4 Mg Capsule PO 0.4 mg HS BUZZ Administration Radiology Results: ITS Impressions Chest X-Ray 07/13/24 06:20 Impression: Clear lungs. Labs Labs: Laboratory Results - last 24 hr 07/12/24 07/12/24 07/12/24 16:49 17:58 17:59 WBC RBC Hgb Hct MCV MCH MCHC RDW Plt Count MPV % Immature Plt Fraction Sodium Potassium 4.3 Chloride Carbon Dioxide Anion Gap BUN Creatinine Estim Creat Clear Calc Estimated GFR Glucose POC Capillary Glucose Calcium Magnesium 2.0 Total Bilirubin AST ALT Alkaline Phosphatase Troponin I < 0.012 NT-Pro-B Natriuret Pep Total Protein Albumin Urine Color Yellow Urine Appearance Clear Urine pH 5.0 Ur Specific [place] 1.018 Urine Protein 1+ H Urine Glucose (UA) 3+ H Urine Ketones Negative Ur Blood (Man) Negative Urine Nitrate Negative Urine Bilirubin Negative Urine Urobilinogen 0.2 Add Ur Microanalysis Reviewed Leukocyte Esterase Rfl Negative Urine RBC 0-2 Urine WBC 0-5 Ur Squamous Epith Cells None seen Urine Bacteria None seen Urine Casts 3-5 Hyaline Casts Present Urine Opiates Screen Negative Urine Methadone Screen Negative Ur Barbiturates Screen Negative Ur Phencyclidine Scrn Negative Ur Amphetamine Screen Negative U Benzodiazepines Scrn Negative Urine Cocaine Screen Negative U Cannabinoids Screen Negative 07/12/24 07/12/24 07/13/24 19:58 20:05 03:50 WBC 6.8 RBC 4.36 L Hgb 13.2 L Hct 40.0 L MCV 91.7 MCH 30.3 MCHC 33.0 RDW 13.8 Plt Count 119 L MPV 11.4 H % Immature Plt Fraction 6.5 Sodium 138 Potassium 3.8 Chloride Carbon Dioxide Anion Gap BUN Creatinine Estim Creat Clear Calc Estimated GFR Glucose POC Capillary Glucose 159 H Calcium Magnesium Total Bilirubin AST ALT Alkaline Phosphatase Troponin I < 0.012 NT-Pro-B Natriuret Pep Total Protein Albumin Urine Color Urine Appearance Urine pH Ur Specific [place] Urine Protein Urine Glucose (UA) Urine Ketones Ur Blood (Man) Urine Nitrate Urine Bilirubin Urine Urobilinogen Add Ur Microanalysis Leukocyte Esterase Rfl Urine RBC Urine WBC Ur Squamous Epith Cells Urine Bacteria Urine Casts Hyaline Casts Urine Opiates Screen Urine Methadone Screen Ur Barbiturates Screen Ur Phencyclidine Scrn Ur Amphetamine Screen U Benzodiazepines Scrn Urine Cocaine Screen U Cannabinoids Screen 07/13/24 07/13/24 07/13/24 03:50 07:55 11:28 WBC RBC Hgb Hct MCV MCH MCHC RDW Plt Count MPV % Immature Plt Fraction Sodium Potassium 3.8 Chloride 105 Carbon Dioxide 21 L Anion Gap 12 BUN 25 H Creatinine 1.73 H Estim Creat Clear Calc 55 Estimated GFR 40 L Glucose 153 H POC Capillary Glucose 163 H 180 H Calcium 8.6 Magnesium 1.9 Total Bilirubin 0.5 AST 34 ALT 46 Alkaline Phosphatase 61 Troponin I NT-Pro-B Natriuret Pep < 20 Total Protein 7.0 Albumin 4.0 Urine Color Urine Appearance Urine pH Ur Specific [place] Urine Protein Urine Glucose (UA) Urine Ketones Ur Blood (Man) Urine Nitrate Urine Bilirubin Urine Urobilinogen Add Ur Microanalysis Leukocyte Esterase Rfl Urine RBC Urine WBC Ur Squamous Epith Cells Urine Bacteria Urine Casts Hyaline Casts Urine Opiates Screen Urine Methadone Screen Ur Barbiturates Screen Ur Phencyclidine Scrn Ur Amphetamine Screen U Benzodiazepines Scrn Urine Cocaine Screen U Cannabinoids Screen 07/13/24 15:40 WBC RBC Hgb Hct MCV MCH MCHC RDW Plt Count MPV % Immature Plt Fraction Sodium Potassium Chloride Carbon Dioxide Anion Gap BUN Creatinine Estim Creat Clear Calc Estimated GFR Glucose POC Capillary Glucose 134 H Calcium Magnesium Total Bilirubin AST ALT Alkaline Phosphatase Troponin I NT-Pro-B Natriuret Pep Total Protein Albumin Urine Color Urine Appearance Urine pH Ur Specific [place] Urine Protein Urine Glucose (UA) Urine Ketones Ur Blood (Man) Urine Nitrate Urine Bilirubin Urine Urobilinogen Add Ur Microanalysis Leukocyte Esterase Rfl Urine RBC Urine WBC Ur Squamous Epith Cells Urine Bacteria Urine Casts Hyaline Casts Urine Opiates Screen Urine Methadone Screen Ur Barbiturates Screen Ur Phencyclidine Scrn Ur Amphetamine Screen U Benzodiazepines Scrn Urine Cocaine Screen U Cannabinoids Screen
[2024-07-13 20:23] LABS: Glucose Point of Care 161 mg/dl (65-105)
[2024-07-13] MEDS: ALPRAZolam (*CRX) 0.25 MG TABLET PO (20:54)
[2024-07-13] MEDS: TAMSULOSIN HCL 0.4 MG CAPSULE PO (20:54)
[2024-07-14] VITALS (10 sets, daily range): BP systolic 122–149; BP diastolic 72–90; PULSE 71–77; RESP 18–20; TEMP 36.4–36.7; O2SAT 97–100
[2024-07-14 03:49] LABS: Hematocrit 40.2 % (42.0-52.0); Hemoglobin 13.6 g/dL (14.0-18.0); Immature Platelet Fraction Pct 5.9 % (0.9-11.2); Mean Corpuscular HGB Conc 33.8 g/dl (32-36); Mean Corpuscular Hemoglobin 30.4 pg (26-34); Mean Corpuscular Volume 89.9 fl (80-100); Mean Platelet Volume 10.9 fl (7.4-10.4); Platelet Count Result 129 k/mm3 (150-375); Red Blood Count 4.47 M/mm3 (4.6-6.20); Red Cell Distribution Width 13.3 % (11.5-14.5); White Blood Count 6.8 K/mm3 (4.5-10.0)
[2024-07-14 04:00] LABS: Anion Gap 11 mmol/L (4-12); Blood Urea Nitrogen 17 mg/dL (9-20); Carbon Dioxide 23 mmol/L (22-30); Chloride 103 mmol/L (98-107); Estimated CRCL calculation 74 ml/min; Estimated Glomerular Filt Rate 57; Glucose 153 mg/dL (65-110); Magnesium 1.9 mg/dL (1.6-2.3); Sodium 137 mmol/L (137-145)
--- NOTE | 2024-07-14 05:02 | ECG_ITS ---
Test Date: 2024-07-14 05:13:49 Measurements Intervals [place] Rate: 75 P: 145 IA: 181 QRS: 188 QRSD: 159 T: 168 QT: 411 QTc: 460 Interpretive Statements SINUS RHYTHM RIGHT BUNDLE-BRANCH BLOCK CONSIDER LIMB LEAD REVERSAL AND REPEAT ECG Electronically Signed On 07-14-2024 16:01:02 CDT by Fernando Modi M.D.
[2024-07-14] MEDS: NITROGLYCERIN SL 0.4 MG TABLET SUBLINGUAL ×4 (05:06→08:45)
[2024-07-14 06:09] LABS: Troponin I < 0.012 ng/mL (0.000-0.034)
[2024-07-14 07:42] LABS: Glucose Point of Care 160 mg/dl (65-105)
[2024-07-14] MEDS: CLOPIDOGREL BISULFATE 75 MG TABLET PO (08:35)
[2024-07-14] MEDS: RIVAROXABAN 2.5 MG TABLET PO (08:35)
[2024-07-14] MEDS: ATORVASTATIN 40 MG TABLET 80 MG PO (08:35)
[2024-07-14] MEDS: buPROPion HCL SR (12 HR) 150 MG TAB PO (08:36)
[2024-07-14] MEDS: ASPIRIN 81 MG CHEWABLE TABLET PO (08:36)
--- NOTE | 2024-07-14 08:43 | ECG_ITS ---
Test Date: 2024-07-14 08:54:27 Measurements Intervals [place] Rate: 78 P: 24 RI: 172 QRS: -3 QRSD: 164 T: 7 QT: 424 QTc: 484 Interpretive Statements SINUS RHYTHM RIGHT BUNDLE BRANCH BLOCK [120+ ms QRS DURATION, UPRIGHT V1, 40+ ms S IN I/aVL/V4/V5/V6] CANNOT RULE OUT INFERIOR MYOCARDIAL INFARCTION ABNORMAL ECG Electronically Signed On 07-15-2024 09:34:56 CDT by Husam Raymundo M.D.
[2024-07-14 09:26] LABS: Troponin I < 0.012 ng/mL (0.000-0.034)
[2024-07-14] MEDS: FLUTICASONE/UMECLIDIN/VILANTER 100-62.5-25 MCG ELLIPTA 1 PUFF INHALATION (09:50)
[2024-07-14 11:25] LABS: Glucose Point of Care 228 mg/dl (65-105)
[2024-07-14] MEDS: INSULIN ASPART (*BKC) 100 UNITS/ML SUB-Q (12:02)
--- NOTE | 2024-07-14 14:15 | P.DS_ITS ---
DS: Admitting Diagnosis Discharge Date 07/14/24 Admitting Diagnosis medication overdose DS: Discharge Diagnosis Discharge Diagnosis (1) Drug overdose: Code(s): T50.901A - Poisoning by unspecified drugs, medicaments and biological substances, accidental (unintentional), initial encounter Status: Acute (2) HTN (hypertension): Qualifiers: Hypertension type: primary hypertension Qualified Code(s): I10 - Essential (primary) hypertension Code(s): I10 - Essential (primary) hypertension Status: Chronic (3) Congestive heart failure: Code(s): I50.9 - Heart failure, unspecified Status: Acute (4) Coronary artery disease: Qualifiers: Coronary Disease-Associated Artery/Lesion type: [place] artery [place] vs. transplanted heart: [place] heart Associated angina: with other forms of angina Qualified Code(s): I25.118 - Atherosclerotic heart disease of [place] coronary artery with other forms of angina pectoris Code(s): I25.10 - Atherosclerotic heart disease of [place] coronary artery without angina pectoris Status: Acute (5) HLD (hyperlipidemia): Qualifiers: Hyperlipidemia type: unspecified Qualified Code(s): E78.5 - Hyperlipidemia, unspecified Code(s): E78.5 - Hyperlipidemia, unspecified Status: Chronic (6) Chronic anticoagulation: Code(s): Z79.01 - watermaster (current) use of anticoagulants Status: Chronic Plan Drug Overdose/CHF BP/ vital sign stable. Consult care coordination Need safe discharge Needs medication education DC Midodrine and IVF as BP stable Strict I and O's Diabetes Hypoglycemic protocol TIA/stent/CAD Continue Xarelto,aspirin and Plavix TAMIR Continue CPAP DVT prophylaxis: Xarelto 2.5 mg p.o. b.i.d. DS: Summary Hospital Course Hospital Course: 64 year old male pt with PMH of it is coronary artery disease status post PCI now x3, TIA, hypertension, peripheral neuropathy, type 2 diabetes mellitus, DVT, peptic ulcer disease, hyperlipidemia, sleep apnea, GERD, COPD, heart failure, depression who was a previous smoker that stopped in 2023 after a 30 pack-year history who comes to the emergency room for accident low dose of Entresto and spironolactone and ranolazine. Of note, the Patient had PCI to the mid LAD for 60% stenosis on June 17, 2024, here at our facility. He was recently admitted on 07/02/2024 because he was not able to get some of his medications. During the admission on 07/02/2024, the patient again went for cardiac catheterization on 07/04 due to elevated troponin and chest pain, which showed stable coronary artery disease compared to prior angiogram, with patent stents in the LAD and LCX. Slow flow was noted on the initial RCA angiogram, and there was a significantly elevated left ventricular end-diastolic pressure of 36 mmHg. And cardiology believed he had imaged a few doses of Lasix as he had trouble getting a refill, which explains why LVEDP is elevated. Pertinent ED labs: WBC 8.2, hemoglobin 14.6, hematocrit 43.9, platelet 142, sodium 137, potassium 4.1, carbon dioxide 21, anion gap 14, creatinine 1.51 (baseline 1.2), GFR 47, glucose 185 Troponin less than 0.012 Chest x-ray shows subsegmental bibasilar atelectasis/consolidation. Possible bilateral effusion The Patient is admitted in the setting of accidental overdose of Entresto, spironolactone, and ranolazine. Since the Patient is not in CHF exacerbation, the Patient will be gently hydrated for lower blood pressure. Midodrine will be added, and it can be discontinued during discharge. His last echocardiogram shows an ejection fraction of 60-65%. Due to his recent stent placement, he will continue his home med aspirin, Plavix, and Xarelto. During the evaluation, the Patient reported he was keeping the medications for the coming week, 7 days, and he accidentally took the wrong short glass, which had 7 days' medications for Jardiance, spironolactone, and ranolazine. Poison control on board and do not recommend EKG, magnesium q.4 hours. Repeat in the a.m. EKG shows sinus rhythm. Right bundle-branch block, which is present in the previous EKGs 07/13/24 Patient was seen and examined at bedside. he is feeling fine. Denies any chest pain, shortness off breath, Abd pain, nausea vomiting. His BP stable. will DC IVF and midodrine. continue to monitor 07/14/24 patient was seen and examined at bedside. he is feeling fine denies any chest pain SOb, Abd pain. vital signs stable. Status at Discharge Functional status at discharge: independent ambulation Overall status at discharge: patient is back to baseline Time Spent with Patient Time attestation: Total time spent providing and/or coordinating discharge services: Exam Narrative: GENERAL: Well-appearing, well-nourished, and in no acute distress. HEAD: Normocephalic, atraumatic. EYES: PERRLA and EOMI. ENT: Nares clear, no rhinorrhea or epistaxis. Mucous membranes moist. NECK: Supple. CHEST: Clear to auscultation. No respiratory distress. HEART: Regular rate and rhythm. No murmur heard. Normal peripheral pulses. ABDOMEN: Soft, nontender, nondistended, normal active bowel sounds. EXTREMITIES: Normal range of motion. No edema. SKIN: Warm, dry, no rash. NEURO: No focal deficits. Alert and oriented x3. PSYCH: Normal mood and affect. DS: Data Data Completed and Pending Labs on day of discharge: Labs from last 24 hours 07/14/24 07/14/24 07/14/24 11:12 08:59 07:17 WBC RBC Hgb Hct MCV MCH MCHC RDW Plt Count MPV % Immature Plt Fraction Sodium Potassium Chloride Carbon Dioxide Anion Gap BUN Creatinine Estim Creat Clear Calc Estimated GFR Glucose POC Capillary Glucose 228 H 160 H Calcium Magnesium Troponin I < 0.012 07/14/24 07/14/24 07/13/24 05:36 03:42 20:13 WBC 6.8 RBC 4.47 L Hgb 13.6 L Hct 40.2 L MCV 89.9 MCH 30.4 MCHC 33.8 RDW 13.3 Plt Count 129 L MPV 10.9 H % Immature Plt Fraction 5.9 Sodium 137 Potassium 4.0 Chloride 103 Carbon Dioxide 23 Anion Gap 11 BUN 17 Creatinine 1.26 Estim Creat Clear Calc 74 Estimated GFR 57 L Glucose 153 H POC Capillary Glucose 161 H Calcium 9.0 Magnesium 1.9 Troponin I < 0.012 07/13/24 15:40 WBC RBC Hgb Hct MCV MCH MCHC RDW Plt Count MPV % Immature Plt Fraction Sodium Potassium Chloride Carbon Dioxide Anion Gap BUN Creatinine Estim Creat Clear Calc Estimated GFR Glucose POC Capillary Glucose 134 H Calcium Magnesium Troponin I Discharge Plan Discharge Discharging Clinician: Ney Oreilly Patient Disposition: Home Activity: as tolerated Diet: heart healthy Patient Instructions: Antibiotic Form Patient Language: French Stand Alone Forms: General Discharge Information Follow-up/Referrals: Angelina,Sandi, BUSINESS TEST ANALYST [Primary Care Provider] - Discharge Medications: No Action Breztri Aerosphere 160-9-4.8 mcg/actuation HFA aerosol inhaler 2 inh INHALATION BID isosorbide mononitrate 60 mg tablet extended release 24 hr 120 mg PO DAILY aspirin [Children's Aspirin] 81 mg tablet,chewable 81 mg PO DAILY carvedilol [Coreg] 12.5 mg Tablet 12.5 mg PO Q12HR Qty: 60 0RF nitroglycerin [Nitrostat] 0.4 mg Tablet, Sublingual 0.4 mg sublingual Q5MIN PRN (Reason: Chest Pain) Qty: 26 0RF omeprazole 40 mg capsule,delayed release(DR/EC) 40 mg PO DAILY Qty: 30 0RF tamsulosin 0.4 mg capsule 0.4 mg PO HS Qty: 30 0RF Jardiance 10 mg tablet 10 mg PO DAILY Qty: 30 0RF atorvastatin 80 mg tablet 80 mg PO DAILY Trulicity 3 mg/0.5 mL pen injector 3 mg SUBCUT WEEKLY Patient Comments: TAKES ON Tuesdays furosemide 40 mg tablet 40 mg PO DAILY clopidogrel 75 mg Tablet 75 mg PO QAM Qty: 30 0RF spironolactone 25 mg Tablet 25 mg PO QAM Qty: 30 0RF Entresto 24-26 mg Tablet 1 tab PO Q12HR Qty: 30 0RF ranolazine 500 mg tablet extended release 12 hr 500 mg PO Q12H Qty: 30 0RF bupropion HCl [Wellbutrin SR] 150 mg tablet sustained-release 12 hr 150 mg PO Q12H amlodipine 10 mg tablet 10 mg PO DAILY metformin 1,000 mg tablet 1,000 mg PO BID alprazolam 0.25 mg tablet 0.25 mg PO HS Rx Instructions: at bedtime rivaroxaban [Xarelto] 2.5 mg tablet 2.5 mg PO Q12H Date of admission: 07/13/24 16:21 Primary Care Provider: Angelina,Sandi Admitting Provider: Nicholas Reyes Attending physician on admission: Ney Oreilly Condition: Stable
== END 2024-07-14 14:43 | disposition home or self-care (01) | DRG 918 ==
LOC: ANHED 17:32 → ANHIMU 18:26
PROVIDERS: Emergency Medicine; General Practice; Nurse Practitioner Gerontology; Admitting Provider Internal Medicine; Emergency Provider Emergency Medicine; PCP Registered Nurse; Visit Provider Internal Medicine
DX: T50.0X1A Poisoning by mineralocorticoids and their antagonists, accidental (unintentional), initial encounter (principal); I69.354 Hemiplegia and hemiparesis following cerebral infarction affecting left non-dominant side; T44.5X1A Poisoning by predominantly beta-adrenoreceptor agonists, accidental (unintentional), initial encounter; T46.4X1A Poisoning by angiotensin-converting-enzyme inhibitors, accidental (unintentional), initial encounter; I11.0 Hypertensive heart disease with heart failure; I50.9 Heart failure, unspecified; I25.10 Atherosclerotic heart disease of native coronary artery without angina pectoris; E78.5 Hyperlipidemia, unspecified; G47.33 Obstructive sleep apnea (adult) (pediatric); E11.42 Type 2 diabetes mellitus with diabetic polyneuropathy; L40.9 Psoriasis, unspecified; J44.9 Chronic obstructive pulmonary disease, unspecified; K21.9 Gastro-esophageal reflux disease without esophagitis; I73.9 Peripheral vascular disease, unspecified; Z79.01 Long term (current) use of anticoagulants; Z95.5 Presence of coronary angioplasty implant and graft; Z90.49 Acquired absence of other specified parts of digestive tract; I25.2 Old myocardial infarction; Z86.16 Personal history of COVID-19; Z86.718 Personal history of other venous thrombosis and embolism; Z87.11 Personal history of peptic ulcer disease; Z87.891 Personal history of nicotine dependence
CPT/HCPCS: 36415; 71045; 71046; 80048; 80053; 80143; 80179; 80307; 81001; 82948; 83690; 83735; 83880; 84132; 84484; 85025; 85027; 85055; 85610; 85730; 93005; 94640; 96360; 96361; 99285; A9270; G0378; J1815; J7030

== ENCOUNTER 2024-08-18 20:10 | Observation (INO) | payer MEDICARE, MEDICAID, SELFPAY ==
[2024-08-18] VITALS (10 sets, daily range): BP systolic 96–119; BP diastolic 42–71; PULSE 79–90; RESP 13–28; TEMP 36.4; O2SAT 96–99
--- NOTE | ~2024-08-18 | XR_ITS ---
CHEST RADIOGRAPH CLINICAL HISTORY: dyspnea . COMPARISON: 07/13/2024 and dating back to 05/01/2024 TECHNIQUE: Single portable view of the chest. FINDINGS A loop recorder is identified projecting to the left of midline. The remainder of the cardiomediastinal silhouette is otherwise unremarkable. The lungs are clear. IMPRESSION: No focal infiltrate or effusion. Reviewed, dictated and finalized at location A.
--- NOTE | ~2024-08-18 | CT_ITS ---
CLINICAL INDICATION: Diffuse abdominal pain COMPARISON: 04/14/2024. TECHNIQUE: Multiple contiguous axial images of the abdomen and pelvis were performed following the ad ministration of with 100 mL Omnipaque-350 intravenous contrast The dose-length product (DLP) was 1840.73 mGy-cm. Automated exposure control and iterative reconstruction technique were employed. FINDINGS/OBSERVATIONS: Visualized lower thorax: The bilateral lung bases are clear. The heart is within the upper limits of normal for size, without pericardial effusion. Small hiatal hernia is present. Liver: The liver demonstrates homogeneous enhancement and is enlarged measuring 22 cm in longitudinal dimens ion. Gallbladder and biliary system: The gallbladder is surgically absent. Pancreas: The pancreas enhances homogeneously without ductal dilatation. Spleen: The spleen enhances homogeneously and is not enlarged. Kidneys: Rounded focus of fat attenuation redemonstrated within the lower pole of the right kidney me asuring 3.5 x 3.5 x 3.3 cm. 4 mm nonobstructing stone within the lower pole of the left kidney. The remainder of the bilateral kidneys otherwise enhance symmetrically without hydronephrosis or tyler tional renal calculi. Adrenal glands: 4 cm focus of fat attenuation within the anterior limb of the left adrenal gland consistent with myel olipoma, unchanged. The right adrenal gland is unremarkable. Gastrointestinal tract: Colonic diverticulosis without surrounding inflammatory change. Appendix: The air-filled appendix is of normal caliber (axial series, images 137 through 163) Vasculature: Unremarkable. Lymph nodes: No pathologically enlarged or morphologically suspicious lymph nodes within the retroperitoneum or at the root of the mesentery. Pelvic structures: The bladder is distended, and otherwise unremarkable. The prostate gland is not enlarged, but contains multiple bulky calcifications. Body wall and musculoskeletal: Age appropriate degenerative disease within the lumbosacral spine. IMPRESSION: Significant hepatomegaly. Nonobstructing renal calculi. 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 Otherwise, no acute pathology within the lower chest, abdomen or pelvis, as detailed above. Reviewed, dictated and finalized at location A. IMPRESSION: Significant hepatomegaly. Nonobstructing renal calculi. 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 Otherwise, no acute pathology within the lower chest, abdomen or pelvis, as det noelle above.
--- OUTSIDE RECORDS SUMMARY | 2024-08-18 20:13 | XMS_ITS | Encounter Summary ---
Author Organization [facility] Address [address] [place] [address] Care Team Providers Care Motorcycle Technician Name Role Phone Sandi Alfaro Primary Care Provider [phone] hCeryl Huston RN Unavailable Unavailable Reason for Visit * Reason Onset Date Comments Vomiting 08/17/2024 Encounter Details Date Type Department Care Team (Late st Contact Info) Description 08/17/2024 Telephone [facility] Family & Internal Medicine [facility] [address] [place] [address] Sandi Alfaro APNP [address] [place] [address] Vomiting Social History Tobacco Use Types Packs/Day Years Used Date Smoking Tobacco: Former Cigarettes 0.3 40 Q uit: 02/17/2024 Smokeless Tobacco: Never Comments:currently smoking 1 -2 cigarettes a day Alcohol Use Standard Drinks/Week Comments Yes 0 (1 standard drink = 0.6 oz pur e alcohol) very rarely 6 beers/year [facility] Utilities Answer Date Recorded In the past 12 months has [email or web address], gas, oil, or water [employer] threatened to shut off services in your [...] any clubs o r organizations such as baptist groups, unions, fraternal or athletic groups, or [...] Recorded Patient Health Questionnaire-2 Score 0 03/31/2024 [facility] - Occupational Stress Questionnaire Answer Date [...] place to sleep or slept in a mcfp (including now)? No 05/12/2023 Sex and Gender Information Value Date Recorded Sex Assigned at Male 03/31/2024 8:58 AM GASTROINTESTINAL TECHNICIAN Legal Sex Male 8:01 PM CDT [...] documented in this encounter Progress Notes * Harini Mondragon MA - 08/17/2024 1:11 PM CDT Pt v/u. * CRIS Rizo - 08/17/2024 12:04 PM CDT Potentially Same plan applies * Ayanna Jc - 08/17/2024 12:02 PM CDT Patient called in stating he had spent all day working outside yesterday. Asking if this could be what is causing the issue. Please advise. * Harini Mondragon MA - 08/17/2024 11:44 AM CDT Per PCP, increase fluids, Zofran. Go to ER if fear of dehydration, abdominal pain or blood in stool. Pt denies any abd pain or bloody stools at this time. He states he began having diarrhea at around 1am today, then started vomiting around 4am. He states he cannot keep water down. This MA advised ptto not try drinking large quantities of water, but sip a little every 15-20 minutes. Stick to blandfoods if feeling able to eat, and in small quantities. Pt has been further advised to seek eval at Urgent Care or ER if sx do not improve over next couple of days, or sooner if worsening sx. Zofran refill sent. * Aliza Hudson - 08/17/2024 11:14 AM CDT The patient has the following symptom(s): vomiting and diarrhea since last night Symptom(s) Started: last night OTC Medications tried: none Have you been seen with-in the past 30 days for these same symptoms? No. If so, where? Home Covid test: Call back #: [phone] Allergies: No Known Allergies Pharmacy: [facility] in [facility] in [place] Patient will think about going to [facility] as the [facility] is too far for him to drive with the vomiting. Patient would like to be seen in person. Patient is requesting something becalled in for him if we can. documented in this encounter Plan of Treatment Not on file documented as of this encounter Visit Diagnoses Diagnosis Vertigo Dizziness and giddiness documented in this encounter Additional Health Concerns Assessment Noted Time PHQ-9 Depression Total Score: 0 05/21/19 24 11:21 AM CDT documented as of this encounter Care Teams Motorcycle Technician Relationship Specialty Start Date End Date Sandi Alfaro APNP Family & Internal Medicine [address] [address] PCP - General ADVANCED PRACTICE DIRECTOR OF DIETARY 04/28/17 Cheryl Huston, washhouse worker (Ambulatory) REGISTERED NURSE 03/23/19 documented as of this encounter
--- OUTSIDE RECORDS SUMMARY | 2024-08-18 20:13 | XMS_ITS | Clinical Summary ---
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 180 tablet 3 08/10/19 24 025 Discontinued Active Problems Problem Noted Date Diagnosed Date Hematuria, gross 11/13/2021 Chronic heart failure with preserved ejection fr action 11/12/2018 Cryptogenic stroke 07/06/2018 Status post placement of implantable loop record er 10/13/2017 Overview (10/13/2017): Medtr[employer] Reveal Loop Recorder. Dx; Cryptogenic Stroke. DOI 10/12/[address] Willoughby[address] [facility] remote monitoring. 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 2 diabetes mellitus ([facility]) 02/20/2015 Overview (06/07/2016): DM type 2 with diabetic dyslipidemia Hypertensive heart disease with congestive heart failure 02/20/2015 Overview (06/07/2016): Hypertensive heart disease with diastolic heart failure TAMIR on CPAP 10/17/2014 Overview (06/07/2016): TAMIR on CPAP Diabetes mellitus 10/17/2014 Overview (06/07/2016): DM (diabetes mellitus) Hypertension associated with diabetes 10/17/2014 Overview (06/07/2016): HTN (hypertension), benign Encounters Date Type Department Care Team Description 07/20/2024 Orders Only [facility] Health Information Management [address] [place] [address] Scanning, Provider 07/12/2024 11:45 AM CDT Office Visit [facility] Cardiology [address] [place], [place] [phone] Fernando Modi MD 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 (Primary Dx); Chronic heart failure with preserved ejection fraction (HCC) 07/11/2024 Telephone [facility] Cardiology [address] [facility] [address] [place] [phone] Julio Richardson MD 07/08/2024 Telephone [facility] Cardiology [address] [facility] [address] [place] [phone] Fernando Modi MD 07/08/2024 Orders Only [facility] Cardiology [address] [facility] [address] [place] [phone] Julio Richardson MD 06/29/2024 Telephone [facility] Cardiology [address] [facility] [address] [place] [phone] Fernando Modi MD 06/21/2024 Orders Only [facility] Cardiology [address] [facility] [address] [place] [phone] Paola Nolen MD 06/13/2024 Orders Only [facility] Health Information Management [address] [place] [address] Paola Nolen MD from Last 3 Months Surgical History [...] on file Legal Sex Male 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 Gender Identity Male 09/03/2018 6:22 AM CDT [...] Procedure Name Priority Date/Time Associated Diagnosis Comments SCAN - LABS 07/20/2024 CARDIOLOGY DOCUMENT SCAN Routine 07/05/2024 12:37 PM CDT CARDIOLOGY DOCUMENT SCAN Routine 06/17/2024 8:53 AM CDT CARDIOLOGY DOCUMENT SCAN Routine 06/16/2024 8:51 AM CDT CARDIOLOGY DOCUMENT SCAN Routine 06/16/2024 8:47 AM CDT CARDIOLOGY DOCUMENT SCAN Routine 06/15/2024 8:40 AM CDT CARDIOLOGY DOCUMENT SCAN Routine 06/14/2024 8:26 AM CDT CARDIOLOGY DOCUMENT SCAN 06/13/2024 LIPID PANEL Routine 10/20/2023 from Last 3 Months or Most Recently Relevant to Health Maintenance Results * SCAN - LABS (07/20/2024) us Provider Scanning Final Result * Cardiology Document Scan (07/05/2024 12:37 PM CDT) Anatomical Region Laterality Modality Other us Julio Richardson MD CV CARDIAC SERVICES PRO [...] CARDIAC SERVICES PROCEDU RES Final Result * (ABNORMAL) Lipid panel (10/20/2023) [...] Most Recently Relevant to Health Maintenance Insurance [facility] MEDICARE MEDICARE [place] Care Teams Car Ferry Master Relationship Specialty Start Date End Date Sandi Alfaro PA PCP - General Nurse Practitioner 08/21/17
--- OUTSIDE RECORDS SUMMARY | 2024-08-18 20:13 | XMS_ITS | Patient Health Record ---
Author Organization [facility] Address [address] [place], [place] [address] Care Team Providers Care Auditor Tax Name Role Phone PIETER WALSH Unavailable [phone] Sandi Alfaro Unavailable Unavailable Allergies No Known Allergies Reason For Referral No Information Medications Medication SIG (Take, Route, Frequency, Duration) Notes Start Date End Date Status clotrimazole 10 MG/ML Topical Cream CUTANEOUS clotrimazole 10 MG/ML Topical CreamOriginal Medicationclotrimazole 10 MG/ML Topical Cream *Reorder from [employer] for eRx and Interaction Alerts* 7 Active betamethasone 0.5 MG/ML / clotrimazole 10 MG/ML Topical Cream CUTANEOUS betamethasone 0.5 MG/ML / clotrimazole 10 MG/ML Topical CreamOriginal Medicationbetamethasone 0.5 MG/ML / clotrimazole 10 MG/ML Topical Cream *Reorder from [employer] for eRx and Interaction Alerts* 7 Active Augmented betamethasone 0.5 MG/ML Topical Cream CUTANEOUS Augmented betamethasone 0.5 MG/ML Topical CreamOriginal MedicationAugmented betamethasone 0.5 MG/ML Topical Cream *Reorder from [employer] for eRx and Interaction Alerts* 7 Active clobetasol propionate 0.0005 MG/MG Topical Ointment [Temovate] CUTANEOUS clobetasol propionate 0.0005 MG/MG Topical Ointment [Temovate]Original Medicationclobetasol propionate 0.0005 MG/MG Topical Ointment [Temovate] *Reorder from [employer] for eRx and Interaction Alerts* 7 Active betamethasone 0.5 MG/ML / clotrimazole 10 MG/ML Topical Cream [Lotrisone] CUTANEOUS betamethasone 0.5 MG/ML / clotrimazole 10 MG/ML Topical Cream [Lotrisone]Original Medicationbetamethasone 0.5 MG/ML / clotrimazole 10 MG/ML Topical Cream [Lotrisone] *Reorder from [employer] for eRx and Interacti 7 Active Immunizations Vaccine Route Administration Date Status Comme nts Influenza, live, intranasal Unknown 01/29/2023 Administ ered Influenza, quadrivalent, spl it, preservative free, 3 years or older Unknown 11/14/2019 Administered Influenza, quadrivalent, spl it, preservative free, 3 years or older Unknown 12/31/2020 Administered Influenza, quadrivalent, spl it, preservative free, 3 years or older Unknown 12/31/2021 Administered Influenza, quadrivalent, spl it, preservative free, 3 years or older Unknown 12/23/2022 Administered Influenza, seasonal, injecta ble, preservative free, 6-35 months Unknown 11/26/2017 Administered Influenza, seasonal, injecta ble, preservative free, 6-35 months Unknown 12/16/2023 Administered Influenza, unspecified formulation Unknown 02/15/2015 A dministered Influenza, unspecified formulation Unknown 05/29/2015 A dministered Moderna Covid-19 Vaccine 1st dose Unknown 04/13/2020 Ad ministered Moderna Covid-19 Vaccine 1st dose Unknown 05/11/2020 Ad ministered Pfizer-Biontech Covid-19 Vac cine 1st dose Unknown 12/31/2020 Administered Tdap Unknown 11/22/2014 Administered Tdap Unknown 02/26/2016 Administered Tdap Unknown 02/26/2016 Administered Vital Signs Height-cm 182.88 cm 06/27/2024 Weight-kg 149.69 kg 06/27/2024 Height 72.00 in 06/27/2024 Weight 330 lbs 06/27/2024 BMI 44.75 kg/m2 06/27/2024 Encounters Encounter Location Date Provider Diagnosis [facility] [address] [place] [id number] 08/24/2023 PIETER SNOOK Tinea unguium B35.1 ; Pain in right toe(s) M79.674 ; Pain in left toe(s) M79.675 ; Atherosclerosis of eagle arteries of extremities with intermittent claudication, bilateral legs I70.213 and Type 2 diabetes mellitus with other circulatory complications E11.59 [facility] [address] [place] [id number] 08/31/2023 PIETER SNOOK Nondisplaced unspeci fied fracture of unspecified lesser toe(s), initial encounter for closed fracture S92.506A and Pain in left foot M79.672 [facility] [address] [place] [id number] 09/14/2023 PIETER SNOOK Nondisplaced unspeci fied fracture of right lesser toe(s), subsequent encounter for fracture with routine healing S92.504D and Pain in left toe(s) M79.675 [facility] [address] [place] [address] [id number] 11/09/2023 PIETER SNOOK Tinea unguium B35.1 ; Pain in right toe(s) M79.674 ; Pain in left toe(s) M79.675 ; Atherosclerosis of eagle arteries of extremities with intermittent claudication, bilateral legs I70.213 and Type 2 diabetes mellitus with other circulatory complications E11.59 [facility] [address] [place] [id number] 01/25/2024 PIETER SNOOK Tinea unguium B35.1 ; Pain in right toe(s) M79.674 ; Pain in left toe(s) M79.675 ; Atherosclerosis of eagle arteries of extremities with intermittent claudication, bilateral legs I70.213 and Type 2 diabetes mellitus with other circulatory complications E11.59 [facility] [address] [place] [id number] 03/28/2024 PIETER SNOOK Tinea unguium B35.1 ; Pain in right toe(s) M79.674 ; Pain in left toe(s) M79.675 ; Atherosclerosis of eagle arteries of extremities with intermittent claudication, bilateral legs I70.213 and Type 2 diabetes mellitus with other circulatory complications E11.59 [facility] [address] [place] [address] [id number] 06/27/2024 PIETER WALSH Tinea unguium B35.1 ; Pain in right toe(s) M79.674 ; Pain in left toe(s) M79.675 ; Atherosclerosis of eagle arteries of extremities with intermittent claudication, bilateral [...] toe(s) (ICD-10 - M79.675) 08/24/2023 Atherosclerosis of eagle arteries of extremities with intermittent claudication, bilateral legs (ICD-10 - I70.213) 01/25/2024 Pain in left toe(s) (ICD-10 - M79.675) 03/28/2024 Atherosclerosis of eagle arteries of extremities with intermittent claudication, bilateral legs (ICD-10 - I70.213) 06/27/2024 Pain in left toe(s) (ICD-10 - M79.675) 06/27/2024 Atherosclerosis of eagle arteries of extremities with intermittent claudication, bilateral legs (ICD-10 - I70.213) 01/25/2024 Atherosclerosis of eagle arteries of extremities with intermittent claudication, bilateral [...] the Amputation Prevention Guide. 11/09/2023 Atherosclerosis of eagle arteries of extremities with intermittent claudication, bilateral [...] Appt Details Provider Name:PIETER WALSH, 08:10:00 AM, [address], [address], [phone], Insurance Providers Payer Name Payer Address Payer Phone Subscriber Number Group Number Insured Name Patient Relationship to Insured Coverage Start Date Coverage End Date Medicare Part B [facility] [address] [place] [id number] KLAUDIA HALEY Self - patient is the insured
--- OUTSIDE RECORDS SUMMARY | 2024-08-18 20:13 | XMS_ITS | Encounter Summary ---
Author Organization [facility] Address [address] [place] [address] Care Team Providers Care Step Down Nurse Name Role Phone Sandi Alfaro Primary Care Provider + Encounter Details Date Type Department Care Team (Late st Contact Info) Description 07/20/2024 Orders Only [facility] Health Information Management [address] [place] [address] Scanning, Provider Social History Tobacco Use Types Packs/Day Years Used Date Smoking Tobacco: Some Days Cigarettes 0.3 15 Smokeless Tobacco: Never Alcohol Use Standard Drinks/Week Comments Yes 0 (1 standard drink = 0.6 oz pur e alcohol) Sex and Gender Information Value Date Recorded Sex Assigned at Not on file Legal Sex Male 3:15 AM SHOWROOM CONSULTANT Gender Identity Male 09/03/2018 6:22 AM CDT Sexual Orientation Straight 09/03/2018 6: 22 AM CDT documented as of this encounter Plan of Treatment Not on file documented as of this encounter Procedures Procedure Name Priority Date/Time Associated Diagnosis Comments SCAN - LABS 07/20/2024 documented in this encounter Results * SCAN - LABS (07/20/2024) us Provider Scanning Final Result documented in this encounter Visit Diagnoses Not on filedocumented in this encounter Care Teams Step Down Nurse Relationship Specialty Start Date End Date Sandi Alfaro PA PCP - General Nurse Practitioner 08/21/17 documented as of this encounter
--- OUTSIDE RECORDS SUMMARY | 2024-08-18 20:13 | XMS_ITS | Encounter Summary ---
Author Organization [facility] Address [address] [place] [address] Care Team Providers Care Environmental Remediation Engineer Name Role Phone Sandi Alfaro Primary Care Provider [phone] Sandi Alfaro Unavailable [phone] Cheryl Huston RN Unavailable Unavailable Encounter Details Date Type Department Care Team (Late st Contact Info) Description 05/13/2021 Ordr.in Message Enc [facility] Medical Group Multispecialty Care - [facility] [address] [facility] [place] [address] Eliza, [facility] Provider CPAP Social History Tobacco Use Types Packs/Day Years Used Date Smoking Tobacco: Every Day Cigarettes 0.3 40 Smokeless Tobacco: Never Comments:want to quit but gary s alot of stress right [id number] smoking about 3-4 cigaretts a day Alcohol Use Standard Drinks/Week Comments Yes 0 (1 standard drink = 0.6 oz pur e alcohol) very rarely 6 beers/year PHQ-2 Answer Date Recorded PHQ-2 Score - If the patient scores above 3, please move on to questions 3-9 4 01/23/2021 Sex and Gender Information Value Date Recorded Sex Assigned at Male 03/31/2024 8:58 AM URBAN AND REGIONAL PLANNER Legal Sex Male 8:01 PM CDT Gender [...] Total Score: 7 01/24/20 21 1:37 PM URBAN AND REGIONAL PLANNER documented as of this encounter Care Teams Environmental Remediation Engineer Relationship Specialty Start Date End Date Sandi Alfaro APNP Family & Internal Medicine [address] [address] PCP - General ADVANCED PRACTICE BAGGING MACHINE OPERATOR 04/28/17 Sandi Alfaro APNP [address] [place] [address] PCP - Med Group - [facility] Attributed Provider 03/02/15 03/01/22 Cheryl Huston, fixed wing aircraft crew chief (Ambulatory) REGISTERED NURSE 03/23/19 documented as of this encounter
--- OUTSIDE RECORDS SUMMARY | 2024-08-18 20:13 | XMS_ITS | Clinical Summary ---
Author Organization [facility] Address [address] [place] [address] Care Team Providers Care Color Artist Name Role Phone Sandi Alfaro INTERSTATE BUS DISPATCHER-BALER OPERATOR Primary Care Provider Source Comments [facility]),non-owned Affiliates and Associated Physician Practices is amultiple site organization consisting of ambulatory clinics and hospital sitesin [place], [place] and [place]. This disclosure is being madepursuant to the Care Everywhere program and may not contain all information available regarding this patient. Last updated 17.[facility] Allergies No known active allergies Medications * [...] on file Legal Sex Male 5:35 PM ASSET COORDINATOR Gender Identity Not on file Sexual Orientation [...] ve Non-react kendell 05/26/2018 5:12 PM CDT [facility] Comment: Neither HIV-1 p24 Antigen nor HIV-1/HIV-2 Antibodies are detected. Blood BLOOD SPECIMEN / Unknown Venipuncture / Unknown 05/26/2018 4:21 PM CDT 05/26/2018 4:26 PM CDT Jim Ann MD LAB - HEMATOLOGY ORDERABLES F inal Result Performing Organization Address [facility] Co de Phone Number [address] [phone] * HEPATITIS C AB SCREEN RFLX NAAT QUANT (05/26/2018 4:21 PM CDT) Pathologist [facility] Hepatitis C Antibody Non-react kendell Non-reac tive 05/26/2018 5:13 PM CDT [facility] Comment: Hepatitis C Antibody screen indicates [...] ORDERABLES Fi nal Result Performing Organization Address City/[facility]/ZIP Co de Phone Number [address] [address], [place] [phone] from Last 3 Months or Most Recently Relevant to Health Maintenance Insurance MEDICARE MEDICAID - OUT OF STATE MEDICARE MEDICAID - [place] Advance Directives * Full Code (Latest Code Status on File) Date Activated Date Inactivated Comments 05/26/2018 2:01 PM 05/28/2018 11:56 AM Care Teams Color Artist Relationship Specialty Start Date End Date Sandi Alfaro APRN-BALER OPERATOR [address] [place] [address] PCP - General 08/27/21
--- OUTSIDE RECORDS SUMMARY | 2024-08-18 20:13 | XMS_ITS ---
Author Organization [facility] Address [address] [place], [place] [address] Care Team Providers Care Rn Baby Name Role Phone PIETER WALSH Unavailable [phone] Sandi Alfaro Unavailable Unavailable REASON FOR VISIT dropped rolling pin on right foot. - canc. by pt., in hospital Encounters Encounter Location Date Provider Diagnosis [facility] [address] [facility] [address] [place], [place] [phone] 07/04/2024 PIETER WALSH Plan Of Treatment Next Appt Details Provider Name:PIETER WALSH, 08:10:00 AM, [address], [place], [place], [phone], Progress Notes * KLAUDIA HALEY BDOB:[birth year] (64 yo M)Acc No.[id number]:07/04/2024 Patient: Trina BISHOP KLAUDIA Marin Provider: Kristal Walsh DPM :1960 A ge:64 Y S ex:Male Date:07/04/2024 Address:[address], [place] Subjective: * Chief Complaints: * 1 . Dropped rolling pin on right foot. - canc. by pt., in hospital. * Medical History: Objective: * Vitals: Assessment: Plan: * Treatment: * Billing Information: * Visit Code: * Procedure Codes: * Electronic signature of PIETER WALSH DPM on 08/18/2024 at 08:13 PM CDT Sign off status: Pending * Provider: Kristal Walsh DPM Date: 0 07/04/2024 Generated for Michelle Rust on: 0 08/18/2024 08:13 PM CDT
--- OUTSIDE RECORDS SUMMARY | 2024-08-18 20:13 | XMS_ITS | Referral Summary ---
Author Organization [facility] [address] [place] [address] 162 [address] [place] [address] Care Team Providers Care Patient Relations Manager Name Role Phone Sandi Alfaro Primary Care Provider + Encounters Date Type Department Care Team Description 07/20/2024 Orders Only [facility] Health Information Management [address] [place] [address] Scanning, Provider 07/12/2024 11:45 AM CDT Office Visit [facility] Cardiology [address] [place] [address] Fernando Modi MD Coronary artery disease of [place] artery of [place] heart with stable angina pectoris (Primary Dx); Chronic heart failure with preserved ejection fraction (HCC) 07/11/2024 Telephone [facility] Cardiology [address] [place] [address] Julio Richardson MD 07/08/2024 Telephone [facility] Cardiology [address] [place] [address] Fernando Modi MD 07/08/2024 Orders Only [facility] Cardiology [address] [facility] [address] [place] [address] Julio Richardson MD 06/29/2024 Telephone [facility] Cardiology [address] [place] [address] Fernando Modi MD 06/21/2024 Orders Only [facility] Cardiology [address] [place] [address] Paola Nolen MD 06/13/2024 Orders Only [facility] Health Information Management [address] [place] [address] Paola Nolen MD from Last 3 Months Allergies No known [...] 24 hr tabletIndicatio ns:Coronary artery disease of [place] artery of [place] heart with stable angina pectoris TAKE 2 TABLETS BY MOUTH EVERY DAY 180 tablet 1 08/16/19 25 Active isosorbide mononitrate ER (IMDUR) 60 mg 24 hr tabletIndicatio ns:Coronary artery disease of [place] artery of [place] heart with stable angina pectoris TAKE 2 TABLETS BY MOUTH DAILY. 180 tablet 3 08/10/19 24 025 Discontinued Active Problems Problem Noted Date Diagnosed Date Hematuria, gross 11/13/2021 Chronic heart failure with preserved ejection fr action 11/12/2018 Cryptogenic stroke 07/06/2018 Status post placement of implantable loop record er 10/13/2017 Overview (10/13/2017): [employer] Reveal Loop Recorder. Dx; Cryptogenic Stroke. DOI 10/12/[address] Willoughby. [facility] remote monitoring. 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 with stable angina pectoris 02/20/2015 Overview (06/07/2016): Coronary artery disease involving [place] coronary artery of [place] heart with other form of angina pectoris CVA, old, hemiparesis 02/20/2015 Overview (06/07/2016): CVA, old, hemiparesis Mixed diabetic hyperlipidemi a associated with type 2 diabetes mellitus (CMS/HCC) 02/20/2015 Overview (06/07/2016): DM type 2 with [...] on file Legal Sex Male 3:15 AM PHYSICIAN ASSISTANT Gender Identity Male 09/03/2018 6:22 AM CDT [...] AM CDT) Anatomical Region Laterality Modality Other Paola Nolen [...] AM CDT) Anatomical Region Laterality Modality Other Paola Nolen MD CV CARDIAC SERVICES PROCEDU RES Final Result * Cardiology Document Scan (06/14/2024 8:26 AM CDT) Anatomical Region Laterality Modality Other Paola Nolen [...] to Health Maintenance Insurance IDPA MEDICARE MEDICARE [facility] Care Teams Patient Relations Manager Relationship Specialty Start Date End Date Sandi Alfaro PA PCP - General Nurse Practitioner 08/21/17
--- OUTSIDE RECORDS SUMMARY | 2024-08-18 20:13 | XMS_ITS | Encounter Summary ---
Author Organization [facility] Address [address] [place] [address] Care Team Providers Care Seismic Prospecting Observer Helper Name Role Phone Sandi Alfaro Primary Care Provider [phone] Cheryl Huston RN Unavailable Unavailable Encounter Details Date Type Department Care Team (Late st Contact Info) Description 08/27/2022 My Fashion Databasehart Message Enc [facility] Medical Group - [address] [id number] FanSnapmitchellt, [facility] Provider Air Quality [...] Sex Assigned at Male 03/31/2024 8:58 AM BREWMASTER Legal Sex Male 8:01 PM CDT Gender [...] documented as of this encounter Care Teams Seismic Prospecting Observer Helper Relationship Specialty Start Date End Date Sandi Alfaro APNP Family & Internal Medicine [address] [address] PCP - General ADVANCED PRACTICE INSPECTOR MACHINED PARTS 04/28/17 Cheryl Huston, veneer puller (Ambulatory) REGISTERED NURSE 03/23/19 documented as of this encounter
--- OUTSIDE RECORDS SUMMARY | 2024-08-18 20:14 | XMS_ITS | Encounter Summary ---
Author Organization [facility] Address [address] [place] [address] Care Team Providers Care Laser Beam Machine Operator Name Role Phone Sandi Alfaro Primary Care Provider [phone] Sandi Alfaro Unavailable [phone] Cheryl Huston RN Unavailable Unavailable Encounter Details Date Type Department Care Team (Latest Contact Info) Description 10/26/2017 Abstract [facility] Medical Group , Shay Huhges MD Social History Tobacco Use Types Packs/Day Years Used Date Smoking Tobacco: Every Day Cigarettes 0.3 40 Smokeless Tobacco: Never Comments:want to quit but gary s alot of stress right now Alcohol Use Standard Drinks/Week Comments No 0 (1 standard drink = 0.6 oz pur e alcohol) Sex and Gender Information Value Date Recorded Sex Assigned at Male 03/31/2024 8:58 AM RAMP SERVICE AGENT Legal Sex Male 8:01 PM CDT Gender [...] Rule Out 05/03/2020 05/03/2020 05/03/2020 3:25 PM RAMP SERVICE AGENT COVID-19 Rule Out 05/12/2023 05/12/2023 05/13/2023 12:01 AM CDT Influenza - Seasonal 05/14/2023 05/14/2023 024 12:32 AM CDT documented as of this encounter Care Teams Laser Beam Machine Operator Relationship Specialty Start Date End Date Sandi Alfaro APNP Family & Internal Medicine [address] [address] PCP - General ADVANCED PRACTICE RAW STOCK DRIER TENDER 04/28/17 Sandi Alfaro APNP [address] [place] [address] PCP - Med Group - MSSP Attributed Provider 03/02/15 03/01/22 Cheryl Huston, sourcing associate (Ambulatory) REGISTERED NURSE 03/23/19 documented as of this encounter
--- OUTSIDE RECORDS SUMMARY | 2024-08-18 20:14 | XMS_ITS | Encounter Summary ---
Author Organization [facility] Address [address] [place] [address] Care Team Providers Care Packing Machine Pilot Can Router Name Role Phone Sandi Alfaro Primary Care Provider [phone] Cheryl Huston RN Unavailable Unavailable Encounter Details Date Type Department Care Team (Late st Contact Info) Description 08/18/2023 Magic Wheels Message Enc [facility] Medical Group Multispecialty Care - [facility] [address] [facility], [address] [place] [id number] [employer], [facility] Provider Results Social History Tobacco Use Types Packs/Day Years Used Date Smoking Tobacco: Every Day Cigarettes 0.3 40 Smokeless Tobacco: Never Comments:currently smoking 2 -3 cigarettes a day Alcohol Use Standard Drinks/Week Comments Yes 0 (1 standard drink = 0.6 oz pur e alcohol) very rarely 6 beers/year [facility] Utilities Answer Date Recorded In the past 12 months has [facility] [employer], gas, oil, or water [employer] threatened to shut off services in your [...] How often do you attend chur or quaker services? Never 05/12/2023 Do you belong to any clubs o r organizations such as christianity groups, unions, fraternal or athletic groups, or [...] Recorded Patient Health Questionnaire-2 Score 0 05/21/2023 [facility] of Occupat ional Health - Occupational Stress [...] place to sleep or slept in a chcf (including now)? No 05/12/2023 Sex and Gender Information Value Date Recorded Sex Assigned at Male 03/31/2024 8:58 AM SAMPLE CHECKER Legal Sex Male 8:01 PM CDT Gender [...] documented as of this encounter Care Teams Packing Machine Pilot Can Router Relationship Specialty Start Date End Date Sandi Alfaro APNP Family [place] [address] PCP - General ADVANCED PRACTICE FLIGHT SERVICE AGENT 04/28/17 Cheryl Huston, log scaler (Ambulatory) REGISTERED NURSE 03/23/19 documented as of this encounter
--- OUTSIDE RECORDS SUMMARY | 2024-08-18 21:45 | XMS_ITS | Encounter Summary ---
Author Organization [facility] Healthcare Address [address] [place] [address] Care Team Providers Care Job Checker Name Role Phone Sandi Alfaro Primary Care Provider + Encounter Details Date Type Department Care Team (Late st Contact Info) Description 07/20/2024 Orders Only [facility] Health Information Management [address] [place] [address] Scanning, Provider Social History Tobacco Use Types Packs/Day Years Used Date Smoking Tobacco: Some Days Cigarettes 0.3 15 Smokeless Tobacco: Never Alcohol Use Standard Drinks/Week Comments Yes 0 (1 standard drink = 0.6 oz pur e alcohol) Sex and Gender Information Value Date Recorded Sex Assigned at Not on file Legal Sex Male 3:15 AM SOC ANALYST Gender Identity Male 09/03/2018 6:22 AM CDT [...] on filedocumented in this encounter Care Teams Job Checker Relationship Specialty Start Date End Date Sandi Alfaro PA PCP - General Nurse Practitioner 08/21/17 documented as of this encounter
--- OUTSIDE RECORDS SUMMARY | 2024-08-18 21:45 | XMS_ITS | Clinical Summary ---
Author Organization [facility] [address] [place] [address] Care Team Providers Care Valet Service Attendant Name Role Phone Sandi Alfaro Primary Care [...] 24 hr tabletIndicatio ns:Coronary artery disease of [place] artery of [place] heart with stable angina pectoris TAKE 2 TABLETS BY MOUTH EVERY DAY 180 tablet 1 08/16/19 25 Active isosorbide mononitrate ER (IMDUR) 60 mg 24 hr tabletIndicatio ns:Coronary artery disease of [place] artery of [place] heart with stable angina pectoris TAKE 2 TABLETS BY MOUTH DAILY. 180 tablet 3 08/10/19 24 025 Discontinued Active Problems Problem Noted Date Diagnosed Date Hematuria, gross 11/13/2021 Chronic heart failure with preserved ejection fr action 11/12/2018 Cryptogenic stroke 07/06/2018 Status post placement of implantable loop record er 10/13/2017 Overview (10/13/2017): [employer] Reveal Loop Recorder. Dx; Cryptogenic Stroke. DOI 10/12/[address] Willoughby. [facility] remote monitoring. TIA (transient ischemic attack) 10/06/2017 S/P coronary artery stent placement 12/17/2016 Morbid obesity with BMI of 45.0-49.9, adult ([facility]) 08/13/2016 Mixed anxiety depressive disorder 05/01/2015 Overview (06/07/2016): Anxiety and depression Coronary artery disease of n ative artery of [place] heart with stable angina pectoris 02/20/2015 Overview (06/07/2016): Coronary artery disease involving [place] coronary artery of [place] heart with other form of angina pectoris CVA, old, hemiparesis 02/20/2015 Overview (06/07/2016): CVA, old, hemiparesis Mixed diabetic hyperlipidemi a associated with type 2 diabetes mellitus ([facility]) 02/20/2015 Overview (06/07/2016): DM [...] Department Care Team Description 07/20/2024 Orders Only [facility] Health Information Management [address] [place] [address] Scanning, Provider 07/12/2024 11:45 AM CDT Office Visit [facility] Cardiology [address] [place], [place] [address] Fernando Modi MD Coronary artery disease of [place] artery of [place] heart with stable angina pectoris (Primary Dx); Chronic heart failure with preserved ejection fraction (HCC) 07/11/2024 Telephone [facility] Cardiology [address] [facility] [address] [place] [phone] Julio Richardson MD 07/08/2024 Telephone [facility] Cardiology [address] [facility] [address] [place] [phone] Fernando Modi MD 07/08/2024 Orders Only [facility] Cardiology [address] [facility] [address] [place] [phone] Julio Richardson MD 06/29/2024 Telephone [facility] Cardiology [address] [facility] [address] [place] [phone] Fernando Modi MD 06/21/2024 Orders Only [facility] Cardiology [address] [facility] [address] [place] [phone] Paola Nolen MD 06/13/2024 Orders Only [facility] Health Information Management [address] [place] [address] Paola Nolen MD from Last 3 [...] on file Legal Sex Male 3:15 AM PATIENT SERVICES ASSISTANT Gender Identity Male 09/03/2018 6:22 AM [...] Blood 10/20/2023 Historical Provider LAB BLOOD ORDERABLES Leida l Result EXTERNAL LAB from Last 3 Months or Most Recently Relevant to Health Maintenance Insurance [facility] MEDICARE MEDICARE [facility] Care Teams Valet Service Attendant Relationship Specialty Start Date End Date Sandi Alfaro PA PCP - General Nurse Practitioner 08/21/17
--- OUTSIDE RECORDS SUMMARY | 2024-08-18 21:45 | XMS_ITS | Clinical Summary ---
Author Organization [facility] Address [address] [place] [address] Care Team Providers Care Electric Deicer Assembler Name Role Phone Sandi Alfaro LACQUER SPRAYER-RIVET HOLE MACHINE OPERATOR Primary Care Provider Source Comments [facility],non-owned Affiliates and Associated Physician Practices is amultiple site organization consisting of ambulatory clinics and hospital sitesin [place], [place], [place] and [place]. This disclosure is being madepursuant to the Care Everywhere program and may not contain all information available regarding this patient. Last updated 17.[facility] Allergies No known active allergies Medications * [...] on file Legal Sex Male 5:35 PM GUITAR TEACHER Gender Identity Not on file Sexual Orientation [...] ve Non-react kendell 05/26/2018 5:12 PM CDT [facility] Comment: Neither HIV-1 p24 Antigen nor HIV-1/HIV-2 Antibodies are detected. Blood BLOOD SPECIMEN / Unknown Venipuncture / Unknown 05/26/2018 4:21 PM CDT 05/26/2018 4:26 PM CDT Jim Ann MD LAB - HEMATOLOGY ORDERABLES F inal Result Performing Organization Address [facility] Co de Phone Number [address] [phone] * HEPATITIS C AB SCREEN RFLX NAAT QUANT (05/26/2018 4:21 PM CDT) Pathologist [facility] Hepatitis C Antibody Non-react kendell Non-reac tive 05/26/2018 5:13 PM CDT [facility] Comment: Hepatitis C Antibody screen indicates [...] ORDERABLES Fi nal Result Performing Organization Address City/[facility]/ZIP Co de Phone Number [address] [address], [place] [phone] from Last 3 Months or Most Recently Relevant to Health Maintenance Insurance MEDICARE MEDICAID - OUT OF STATE MEDICARE MEDICAID - [place] Advance Directives * Full Code (Latest Code Status on File) Date Activated Date Inactivated Comments 05/26/2018 2:01 PM 05/28/2018 11:56 AM Care Teams Electric Deicer Assembler Relationship Specialty Start Date End Date Sandi Alfaro APRN-RIVET HOLE MACHINE OPERATOR [address] [place] [address] PCP - General 08/27/21
--- OUTSIDE RECORDS SUMMARY | 2024-08-18 21:45 | XMS_ITS | Referral Summary ---
Author Organization [facility] [address] [place] [address] 162 [address] [place] [address] Care Team Providers Care Sheepskin Pickler Name Role Phone Sandi Alfaro Primary Care Provider + Encounters Date Type Department Care Team Description 07/20/2024 Orders Only [facility] Health Information Management [address] [place] [address] Scanning, Provider 07/12/2024 11:45 AM CDT Office Visit [facility] Medical [facility] Cardiology [address] [place] [address] Fernando Modi MD Coronary artery disease of [place] artery of [place] heart with stable angina pectoris (Primary Dx); Chronic heart failure with preserved ejection fraction (HCC) 07/11/2024 Telephone [facility] Medical [facility] Cardiology [address] [place] [address] Julio Richardson MD 07/08/2024 Telephone [facility] Medical [facility] Cardiology [address] [place] [address] Fernando Modi MD 07/08/2024 Orders Only [facility] Cardiology [address] [facility] [address] [place] [address] Julio Richardson MD 06/29/2024 Telephone [facility] Medical [facility] Cardiology [address] [place] [address] Fernando Modi MD 06/21/2024 Orders Only [facility] Medical [facility] Cardiology [address] [place] [address] Paola Nolen MD 06/13/2024 Orders Only [facility] Health Information Management [address] [place] [address] Paola Nolen MD from Last 3 Months [...] hr tabletIndicatio ns:Coronary artery disease of [place] artery of [place] heart with stable angina pectoris TAKE 2 TABLETS BY MOUTH EVERY DAY 180 tablet 1 08/16/19 25 Active isosorbide mononitrate ER (IMDUR) 60 mg 24 hr tabletIndicatio ns:Coronary artery disease of [place] artery of [place] heart with stable angina pectoris TAKE 2 TABLETS BY MOUTH DAILY. 180 tablet 3 08/10/19 24 025 Discontinued Active Problems Problem Noted Date Diagnosed Date Hematuria, gross 11/13/2021 Chronic heart failure with preserved ejection fr action 11/12/2018 Cryptogenic stroke 07/06/2018 Status post placement of implantable loop record er 10/13/2017 Overview (10/13/2017): [employer] Reveal Loop Recorder. Dx; Cryptogenic Stroke. DOI 10/12/[address] Willoughby. [facility] remote monitoring. TIA (transient ischemic attack) 10/06/2017 S/P coronary artery stent placement 12/17/2016 Morbid obesity with BMI of 45.0-49.9, adult ([facility]) 08/13/2016 Mixed anxiety depressive disorder 05/01/2015 Overview (06/07/2016): Anxiety and depression Coronary artery disease of n ative artery of [place] heart with stable angina pectoris 02/20/2015 Overview (06/07/2016): Coronary artery disease involving [place] coronary artery of [place] heart with other form of angina pectoris [...] on file Legal Sex Male 3:15 AM CARPENTERS Gender Identity Male 09/03/2018 6:22 AM CDT [...] Health Maintenance Insurance IDPA MEDICARE MEDICARE [facility] Care Teams Sheepskin Pickler Relationship Specialty Start Date End Date Sandi Alfaro PA PCP - General Nurse Practitioner 08/21/17
--- NOTE | 2024-08-18 22:09 | ECG_ITS ---
Test Date: 2024-08-18 22:40:25 Measurements Intervals Willis Rate: 80 P: 30 IN: 176 QRS: 30 QRSD: 170 T: 14 QT: 424 QTc: 492 Interpretive Statements SINUS RHYTHM RIGHT BUNDLE BRANCH BLOCK CONSIDER INFERIOR INFARCT, AGE INDETERMINATE ABNORMAL ECG Compared to ECG 07/14/2024 08:54:27 NO SIGNIFICANT CHANGE Electronically Signed On 08-19-2024 07:17:58 CDT by Mathew Landon D.O.
--- NOTE | 2024-08-18 22:14 | ED_ITS ---
HPI - Nausea/Vomiting/Diarrhea General Chief complaint: Nausea/Vomiting/Diarrhea Stated complaint: n/v/d Time Seen by Provider: 08/18/24 21:36 History of Present Illness HPI Narrative: 64-year-old male history of CAD s/p stent placement, hypertension, hyperlipidemia, DM, CVA, COPD, on chronic anticoagulation presents to the emergency department for multiple medical complaints. Patient states over the past 2-3 days he has had nausea, vomiting and diarrhea. Patient states his symptoms started after he was outside in the heat 2 days ago and believes he over worked himself. States the vomiting has resolved, however the nausea and diarrhea have persisted. Patient states he feels dehydrated and was found have soft blood pressures in triage. He is also reporting exertional lightheadedness, dyspnea and chest pain that radiates into the neck. He is prescribed nitroglycerin isosorbide with states he has not attempted these medications. Patient recently underwent cardiac catheterization in June with Dr. Richardson which showed stable CAD compared to prior angiogram with patent stents in the LAD and LCX, slow flow noted on initial RCA angiogram. He is also reporting diffuse abdominal discomfort and bloating. He denies any cough, congestion, fevers, lower extremity edema, orthopnea. Cardiology is Dr. Modi. Related Data Home Medications ?Medication ?Instructions ?Recorded ?Confirmed ?Last Taken ?Type amlodipine 10 mg tablet 10 mg PO DAILY 01/24/19 07/12/24 07/12/24 09:00 History 10 mg bupropion HCl 150 mg tablet,12 hr 150 mg PO Q12H 01/24/19 07/12/24 07/12/24 09:00 History sustained-release (Wellbutrin SR) 150 mg metformin 1,000 mg tablet 1,000 mg PO BID 01/24/19 07/12/24 07/12/24 09:00 History 1,000 mg isosorbide mononitrate 60 mg 120 mg PO DAILY 01/09/20 07/12/24 07/12/24 09:00 History tablet,extended release 24 hr 120 mg alprazolam 0.25 mg tablet 0.25 mg PO HS 08/21/21 07/12/24 07/11/24 21:00 History 0.25 mg aspirin 81 mg chewable tablet 81 mg PO DAILY 09/29/21 07/12/24 06/13/24 History (Children's Aspirin) atorvastatin 80 mg tablet 80 mg PO DAILY 06/13/24 07/12/24 07/12/24 09:00 History 80 mg dulaglutide 3 mg/0.5 mL 3 mg subcut WEEKLY 06/13/24 07/12/24 07/05/24 09:00 History subcutaneous pen injector 3 mg (Trulicity) furosemide 40 mg tablet 40 mg PO DAILY 06/13/24 07/12/24 07/12/24 09:00 History 40 mg budesonide 160 mcg-glycopyr 9 2 inh inhalation BID 06/28/24 07/12/24 07/01/24 History mcg-formot 4.8 mcg/actuation HFA inhaler (Breztri Aerosphere) rivaroxaban 2.5 mg tablet (Xarelto) 2.5 mg PO Q12H 07/12/24 07/12/24 07/12/24 09:00 History 2.5 mg Allergies Allergy/AdvReac Type Severity Reaction Status Date / Time No Known Allergies Allergy Unknown Verified 07/02/24 15:25 Review of Systems 2 Review of Systems: All systems reviewed & are unremarkable except as noted in HPI and below PMFSH Past Medical History Medical History Hypertension Coronary artery disease Stent to the distal circumflex and Left anterior descending in 2014. Left anterior descending stent in 04/2015. COVID Transient ischemic attack Diabetic peripheral neuropathy Peripheral vascular disease Deep venous thrombosis Gastric ulcer Obstructive sleep apnea on CPAP Hyperlipidemia Type 2 diabetes mellitus Gastroesophageal reflux disease Chronic obstructive pulmonary disease Cerebrovascular accident Mild left-sided weakness. Congestive heart failure BMI greater than 40 Chronic anticoagulation Hydronephrosis Psoriasis Depression Fracture of fifth toe, right, closed Kidney stones Pneumonia Myocardial infarction Seasonal allergies Surgical History Surgical History History of coronary artery stent placement History of tonsillectomy History of cholecystectomy History of lithotripsy History of rectal polypectomy History of cardiac catheterization 2 stents Family History Family History Mother Diabetes mellitus Arthritis Kidney stones Coronary artery disease Father Acute myocardial infarction Heart disease Kidney stones Hypertension Coronary artery disease Sibling Coronary artery disease Heart disease Hx of CABG Social History Social History Social History: Surrogate decision maker: Rena Dodd, friend. Code status: Full code. Smoking packs per day: 1 Smoking cigarettes per day: 20.0 Years smoked: 45 Smoking pack-years: 45.00 Smoking status: Former smoker Tobacco type: cigarettes Second hand tobacco smoke exposure: No Smoking end date: 02/17/24 Alcohol intake: never Drinks per week: 0 Substance use: never Substance use type: does not use Last use: 10/01/2023 Do You Feel Safe in your Home?: Yes Lack of Transportation: No Lack of Food: Never True Current Housing: I Have Housing Concerned About Future Housing: No Difficulty Paying Gas/Electric Bills: No Difficulty Paying for Meds: No Currently Unemployed: No Education: High School Diploma/GED Difficulty w/ Childcare or Family Care: No Living arrangements: with roommate(s) Additional living arrangements comments: The patient lives in [place] with a roommate. He has no children. Occupation/Education: other Additional occupation/education comments: Disabled. Spiritual care concerns: No Exam 2 Narrative: GENERAL: Well-appearing, well-nourished, and in no acute distress. HEAD: Normocephalic, atraumatic. EYES: PERRLA and EOMI. ENT: Nares clear, no rhinorrhea or epistaxis. Mucous membranes moist. NECK: Supple. CHEST: Clear to auscultation. No respiratory distress. HEART: Regular rate and rhythm. No murmur heard. Normal peripheral pulses. ABDOMEN: Soft, nontender, nondistended, normal active bowel sounds. EXTREMITIES: Normal range of motion. No edema. SKIN: Warm, dry, no rash. NEURO: No focal deficits. Alert and oriented x3 Course Vital Signs Vital signs: Vital Signs Temperature 97.6 F 08/18/24 20:21 Pulse Rate 88 08/18/24 20:21 Respiratory Rate 22 H 08/18/24 20:21 Blood Pressure 119/71 08/18/24 20:21 Pulse Oximetry 97 08/18/24 20:21 Oxygen Delivery Room Air 08/18/24 20:21 Temperature 97.6 F 08/18/24 20:21 Pulse Rate 86 08/18/24 22:49 Respiratory Rate 22 H 08/18/24 20:21 Blood Pressure 105/65 08/18/24 22:49 Pulse Oximetry 97 08/18/24 20:21 Oxygen Delivery Room Air 08/18/24 20:21 MDM - Nausea/Vomiting/Diarrhea MDM Narrative Medical decision making narrative: 64-year-old male presents to the emergency department for lightheadedness and dyspnea after having 2-3 days of nausea, vomiting and diarrhea. Patient found to have soft blood pressures in triage which has since improved. He does not appear to be volume overloaded and actually appears to be dry on exam. I suspect volume depletion due to recent gastroenteritis. Will obtain lab work, chest x-ray, viral swabs, CT abdomen pelvis and provide IV fluids, Tylenol and Zofran re-evaluate. Lab work without leukocytosis or anemia. Chemistries with mildly elevated creatinine 1.37 consistent with dehydration. UA with ketonuria, glucosuria, UTI. Viral swabs are negative. Chest x-ray shows no acute cardiopulmonary findings. BNP within normal limits. EKG shows normal sinus rhythm, RBBB, no changes compared to prior. Initial troponin undetectable. CT abd/pelvis IMPRESSION: Significant hepatomegaly. Nonobstructing renal calculi. 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 Otherwise, no acute pathology within the lower chest, abdomen or pelvis, as detailed above. Patient updated on results. He received 1000 cc of fluid with improvement, however still having somewhat soft blood pressures. Will give another 500 cc. Given high heart score and dehydration, plan to admit for fluid resuscitation and to trend troponins. Discussed with hospitalist, Dr. Wright, agrees to admission. Lab Data 08/18/24 22:14 08/18/24 22:14 Labs: Lab Results 08/18/24 08/18/24 Range/Units 22:14 23:01 WBC 7.5 (4.5-10.0) K/mm3 RBC 4.69 (4.6-6.20) M/mm3 Hgb 14.1 (14.0-18.0) g/dL Hct 42.6 (42.0-52.0) % MCV 90.8 (80-100) fl MCH 30.1 (26-34) pg MCHC 33.1 (32-36) g/dl RDW 14.5 (11.5-14.5) % Plt Count 147 L (150-375) k/mm3 MPV 11.0 H (7.4-10.4) fl Immature Gran % (Auto) 0.3 (0-0.5) % Neut % (Auto) 64.5 (45.5-73.1) % Lymph % (Auto) 15.0 L (18.3-44.2) % [place] % (Auto) 17.8 H (2.6-8.5) % Eos % (Auto) 2.3 (0-4.4) % Baso % (Auto) 0.1 L (0.2-1.2) % Lymph # (Auto) 1.13 (0.9-3.2) K/mm3 [place] # (Auto) 1.3 H (0.1-0.6) K/mm3 Eos # (Auto) 0.2 (0-0.3) K/mm3 Baso # (Auto) 0.0 (0.0-0.1) K/mm3 Abs Immat Gran (auto) 0.02 (0.00-0.031) K/mm3 Absolute Neuts (auto) 4.9 (1.3-6.7) K/mm3 Absolute Nucleated RBC 0.000 (0.0-0.012) K/mm3 Nucleated RBC % 0.0 (0.0-0.2) % Sodium 135 L (137-145) mmol/L Potassium 3.6 (3.4-5.0) mmol/L Chloride 106 (98-107) mmol/L Carbon Dioxide 17 L (22-30) mmol/L Anion Gap 12 (4-12) mmol/L BUN 20 (9-20) mg/dL Creatinine 1.37 H (0.7-1.3) mg/dL Estim Creat Clear Calc 68 ml/min Estimated GFR 52 L (59 - ) Glucose 140 H (65-110) mg/dL Calcium 9.0 (8.4-10.2) mg/dL Magnesium 1.8 (1.6-2.3) mg/dL Total Bilirubin 1.2 (0.2-1.3) mg/dL AST 25 (17-59) U/L ALT 29 (6-50) U/L Alkaline Phosphatase 59 (38-126) U/L Troponin I < 0.012 (0.000-0.034) ng/mL NT-Pro-B Natriuret Pep 61 (19.9-100) pg/mL Total Protein 7.5 (6.3-8.2) g/dL Albumin 4.3 (3.5-5.1) g/dL Lipase 87 (23-300) U/L Urine Color Yellow (Yellow) Urine Appearance Clear (Clear) Urine pH 5.5 (5.0-9.0) Ur Specific [place] 1.027 (1.001-1.035) Urine Protein 2+ H (Negative) mg/dL Urine Glucose (UA) 3+ H (Negative) mg/dL Urine Ketones Trace H (Negative) mg/dL Ur Blood (Man) Negative (Negative) Urine Nitrate Negative (Negative) Urine Bilirubin Negative (Negative) Urine Urobilinogen 0.2 (<2.0) mg/dL Add Ur Microanalysis Reviewed Leukocyte Esterase Rfl Negative (Negative) JAVIER/UL Urine RBC 0-2 (0-2) /hpf Urine WBC 0-5 (0-3) /hpf Ur Squamous Epith Cells None seen (Few) /hpf Urine Bacteria None seen /hpf Urine Casts 11-20 Hyaline Casts Present (None) /lpf Influenza A (RT-PCR) Negative (Negative) Influenza B (RT-PCR) Negative (Negative) RSV (RT-PCR) Negative (Negative) SARS-CoV-2 RNA (RT-PCR) Negative (Negative) Discharge Plan Discharge Patient Disposition: Still a Patient Patient Language: [place] Prescriptions: No Action Gabriel Aerosphere 160-9-4.8 mcg/actuation HFA aerosol inhaler 2 inh INHALATION BID isosorbide mononitrate 60 mg tablet extended release 24 hr 120 mg PO DAILY aspirin [Children's Aspirin] 81 mg tablet,chewable 81 mg PO DAILY carvedilol [Coreg] 12.5 mg Tablet 12.5 mg PO Q12HR Qty: 60 0RF nitroglycerin [Nitrostat] 0.4 mg Tablet, Sublingual 0.4 mg sublingual Q5MIN PRN (Reason: Chest Pain) Qty: 26 0RF omeprazole 40 mg capsule,delayed release(DR/EC) 40 mg PO DAILY Qty: 30 0RF tamsulosin 0.4 mg capsule 0.4 mg PO HS Qty: 30 0RF Jardiance 10 mg tablet 10 mg PO DAILY Qty: 30 0RF atorvastatin 80 mg tablet 80 mg PO DAILY Trulicity 3 mg/0.5 mL pen injector 3 mg SUBCUT WEEKLY Patient Comments: TAKES ON Tuesdays furosemide 40 mg tablet 40 mg PO DAILY clopidogrel 75 mg Tablet 75 mg PO QAM Qty: 30 0RF spironolactone 25 mg Tablet 25 mg PO QAM Qty: 30 0RF Entresto 24-26 mg Tablet 1 tab PO Q12HR Qty: 30 0RF ranolazine 500 mg tablet extended release 12 hr 500 mg PO Q12H Qty: 30 0RF bupropion HCl [Wellbutrin SR] 150 mg tablet sustained-release 12 hr 150 mg PO Q12H amlodipine 10 mg tablet 10 mg PO DAILY metformin 1,000 mg tablet 1,000 mg PO BID alprazolam 0.25 mg tablet 0.25 mg PO HS Rx Instructions: at bedtime rivaroxaban [Xarelto] 2.5 mg tablet 2.5 mg PO Q12H Follow-up/Referrals: Angelina,JOVITA Junior [Primary Care Provider] - Quality HEART score for chest pain patients History: moderately suspicious ECG: normal Age: > or = to 65 years Risk factors: > or = to 3 risk factors of atherosclerotic disease Troponin: < or = to 1x normal limit Heart score: 5
[2024-08-18] MEDS: SODIUM CHLORIDE 0.9% IV 1,000 ML 999 ML IV CONT (22:24)
[2024-08-18] MEDS: ONDANSETRON INJ 4 MG/2 ML VIAL IV PUSH (22:24)
[2024-08-18 22:38] LABS: Basophils Percent Auto 0.1 % (0.2-1.2); Eosinophils Absolute Auto 0.2 K/mm3 (0-0.3); Eosinophils Percent Auto 2.3 % (0-4.4); Hematocrit 42.6 % (42.0-52.0); Hemoglobin 14.1 g/dL (14.0-18.0); Immature Granulocyte Absolute 0.02 K/mm3 (0.00-0.031); Immature Granulocyte Percent A 0.3 % (0-0.5); Lymphocytes Absolute Auto 1.13 K/mm3 (0.9-3.2); Mean Corpuscular HGB Conc 33.1 g/dl (32-36); Mean Corpuscular Hemoglobin 30.1 pg (26-34); Mean Corpuscular Volume 90.8 fl (80-100); Monocytes Absolute Auto 1.3 K/mm3 (0.1-0.6); Monocytes Percent Auto 17.8 % (2.6-8.5); Neutrophils Absolute Auto 4.9 K/mm3 (1.3-6.7); Neutrophils Percent Auto 64.5 % (45.5-73.1); Platelet Count Result 147 k/mm3 (150-375); Red Blood Count 4.69 M/mm3 (4.6-6.20); Red Cell Distribution Width 14.5 % (11.5-14.5); White Blood Count 7.5 K/mm3 (4.5-10.0)
[2024-08-18 22:48] LABS: Alanine Aminotransferase 29 U/L (6-50); Albumin Level 4.3 g/dL (3.5-5.1); Alkaline Phosphatase 59 U/L (38-126); Anion Gap 12 mmol/L (4-12); Aspartate Amino Transferase 25 U/L (17-59); Bilirubin,Total 1.2 mg/dL (0.2-1.3); Blood Urea Nitrogen 20 mg/dL (9-20); Carbon Dioxide 17 mmol/L (22-30); Chloride 106 mmol/L (98-107); Estimated CRCL calculation 68 ml/min; Estimated Glomerular Filt Rate 52; Glucose 140 mg/dL (65-110); Lipase 87 U/L (23-300); Magnesium 1.8 mg/dL (1.6-2.3); Potassium 3.6 mmol/L (3.4-5.0); Sodium 135 mmol/L (137-145); Total Protein 7.5 g/dL (6.3-8.2)
[2024-08-18 23:00] LABS: NT Pro B Type Natriuretic Pept 61 pg/mL (19.9-100); Troponin I < 0.012 ng/mL (0.000-0.034)
[2024-08-18] MEDS: ACETAMINOPHEN 500 MG TABLET 1000 MG PO (23:04)
[2024-08-18 23:14] LABS: Influenza A QL RT-PCR Negative (Negative); Influenza B QL RT-PCR Negative (Negative); RSV RNA, RT-PCR Negative (Negative); SARS-CoV-2 RNA PCR Negative (Negative)
[2024-08-18 23:27] LABS: Add Urine Microscopic? YES; Appearance Urine Clear (Clear); Bacteria Urine None Seen /hpf; Bilirubin Urine Negative (Negative); Blood Urine Negative (Negative); Color Urine Yellow (Yellow); Glucose Urine UA 3+ mg/dL (Negative); Hyaline Casts Urine Present /lpf; Ketones Urine Trace mg/dL (Negative); Leukocyte Esterase Ur Negative LEU/UL (Negative); Need Manual Microscopic Reviewed; Nitrate Urine Negative (Negative); Protein Urine 2+ mg/dL (Negative); RBC Urine 0-2 /hpf (0-2); Specific Grav Ur 1.027 (1.001-1.035); Squamous Epithelial Cell Urine None Seen /hpf (Few); Urobilinogen Urine 0.2 mg/dL (<2.0); WBC Urine 0-5 /hpf (0-3); pH Urine 5.5 (5.0-9.0)
[2024-08-19] VITALS (18 sets, daily range): BP systolic 100–130; BP diastolic 49–75; PULSE 71–85; RESP 7–28; TEMP 36.4–36.6; O2SAT 96–100; BMI 40.2; BMI 39.2
[2024-08-19] MEDS: SODIUM CHLORIDE 0.9% IV 500 ML 999 ML IV CONT (00:02)
--- NOTE | 2024-08-19 01:20 | ECG_ITS ---
Test Date: 2024-08-19 01:24:22 Measurements Intervals Bowman Rate: 75 P: 33 MO: 169 QRS: 27 QRSD: 168 T: 12 QT: 424 QTc: 476 Interpretive Statements SINUS RHYTHM RIGHT BUNDLE BRANCH BLOCK CONSIDER INFERIOR INFARCT, AGE INDETERMINATE BASELINE ARTIFACT- I, II, AVL ABNORMAL ECG Compared to ECG 08/18/2024 22:40:25 No significant changes Electronically Signed On 08-19-2024 07:18:23 CDT by Mathew Landon D.O.
--- NOTE | 2024-08-19 02:20 | ADMGEN ---
This patient, Vini Zambrano, was admitted to IMU Room 207-01. Patient/family oriented to hospital policies and general routines including ID bracelet, bed and alarms, visiting hours, pain management, procedures, bathroom and other care routines, personal items, smoking policy, room service/diet, and visiting hours. Information on how to activate the Rapid Response Team has been discussed. Patient/Family are encouraged to report perceived risks to care and to ask questions if they do not understand what they are told or what they should do.
[2024-08-19 03:15] LABS: Glucose Point of Care 120 mg/dl (65-105)
[2024-08-19 03:22] LABS: Troponin I < 0.012 ng/mL (0.000-0.034)
[2024-08-19 04:45] LABS: Troponin I < 0.012 ng/mL (0.000-0.034)
[2024-08-19 10:42] LABS: Anion Gap 13 mmol/L (4-12); Blood Urea Nitrogen 20 mg/dL (9-20); Calcium 8.3 mg/dL (8.4-10.2); Carbon Dioxide 17 mmol/L (22-30); Chloride 106 mmol/L (98-107); Estimated CRCL calculation 78 ml/min; Estimated Glomerular Filt Rate > 60; Glucose 180 mg/dL (65-110); Potassium 3.4 mmol/L (3.4-5.0); Sodium 136 mmol/L (137-145)
[2024-08-19 10:55] LABS: Troponin I < 0.012 ng/mL (0.000-0.034)
[2024-08-19 11:20] LABS: Glucose Point of Care 158 mg/dl (65-105)
--- NOTE | 2024-08-19 14:33 | PM.IMHP ---
H&P: HPI History of Present Illness Date/Time: 08/19/24 14:33 Chief Complaint: N/V/Diarrhea Narrative: Patient has history of CAD status post stent placement, HTN, HLD, diabetes mellitus COPD presented with nausea vomiting and diarrhea. Patient notes on Thursday she was working outside on a hot day. Later he developed nausea vomiting and diarrhea. Vomiting improved next day but continued to have nausea and diarrhea every 20 minute. She decided to come to hospital for further management. In the ER lab test showed creatinine 1.[address] showed hepatomegaly. Patient received IV fluid and was admitted for further management. Patient was seen and examined at bedside. He is feeling better. Nausea vomiting improved. Continued to have diarrhea. C diff ordered. Review of Systems Review of Systems: All systems reviewed & are unremarkable except as noted in HPI and below PMFSH Past Medical History Medical History Hypertension Coronary artery disease Stent to the distal circumflex and Left anterior descending in 2014. Left anterior descending stent in 04/2015. COVID Transient ischemic attack Diabetic peripheral neuropathy Peripheral vascular disease Deep venous thrombosis Gastric ulcer Obstructive sleep apnea on CPAP Hyperlipidemia Type 2 diabetes mellitus Gastroesophageal reflux disease Chronic obstructive pulmonary disease Cerebrovascular accident Mild left-sided weakness. Congestive heart failure BMI greater than 40 Chronic anticoagulation Hydronephrosis Psoriasis Depression Fracture of fifth toe, right, closed Kidney stones Pneumonia Myocardial infarction Seasonal allergies Surgical History Surgical History History of coronary artery stent placement History of tonsillectomy History of cholecystectomy History of lithotripsy History of rectal polypectomy History of cardiac catheterization 2 stents Family History Family History Mother Diabetes mellitus Arthritis Kidney stones Coronary artery disease Father Acute myocardial infarction Heart disease Kidney stones Hypertension Coronary artery disease Sibling Coronary artery disease Heart disease Hx of CABG Social History Social History Social History: Surrogate decision maker: Rena Dodd, friend. Code status: Full code. Smoking packs per day: 1 Smoking cigarettes per day: 20.0 Years smoked: 47 Smoking pack-years: 47.00 Smoking status: Former smoker Tobacco type: cigarettes Second hand tobacco smoke exposure: Yes Smoking end date: 02/22/24 Alcohol intake: never Drinks per week: 0 Substance use: never Substance use type: does not use Last use: 10/01/2023 Do You Feel Safe in your Home?: Yes Lack of Transportation: No Lack of Food: Never True Current Housing: I Have Housing Concerned About Future Housing: No Difficulty Paying Gas/Electric Bills: No Difficulty Paying for Meds: No Currently Unemployed: No Education: Decline to Answer Difficulty w/ Childcare or Family Care: No Living arrangements: with roommate(s) Additional living arrangements comments: The patient lives in [place] with a roommate. He has no children. Occupation/Education: other Additional occupation/education comments: Disabled. Spiritual care concerns: No Meds Home Medications and Allergies Home Medications ?Medication ?Instructions ?Recorded ?Confirmed ?Type amlodipine 10 mg tablet 10 mg PO DAILY 01/24/19 08/19/24 History bupropion HCl 150 mg tablet,12 hr 150 mg PO Q12H 01/24/19 08/19/24 History sustained-release (Wellbutrin SR) metformin 1,000 mg tablet 1,000 mg PO BID 01/24/19 08/19/24 History isosorbide mononitrate 60 mg 120 mg PO DAILY 01/09/20 08/19/24 History tablet,extended release 24 hr alprazolam 0.25 mg tablet 0.25 mg PO HS 08/21/21 08/19/24 History aspirin 81 mg chewable tablet 81 mg PO DAILY 09/29/21 08/19/24 History (Children's Aspirin) carvedilol 12.5 mg tablet (Coreg) 12.5 mg PO Q12HR #60 tabs 05/04/24 08/19/24 Rx empagliflozin 10 mg tablet 10 mg PO DAILY #30 tabs 05/04/24 08/19/24 Rx (Jardiance) nitroglycerin 0.4 mg sublingual 0.4 mg sublingual Q5MIN PRN Chest 05/04/24 08/19/24 Rx tablet (Nitrostat) Pain #26 tabs omeprazole 40 mg capsule,delayed 40 mg PO DAILY #30 caps 05/04/24 08/19/24 Rx release tamsulosin 0.4 mg capsule 0.4 mg PO HS #30 caps 05/04/24 08/19/24 Rx atorvastatin 80 mg tablet 80 mg PO DAILY 06/13/24 08/19/24 History dulaglutide 3 mg/0.5 mL 3 mg subcut WEEKLY 06/13/24 08/19/24 History subcutaneous pen injector (Trulicity) furosemide 40 mg tablet 40 mg PO DAILY 06/13/24 08/19/24 History clopidogrel 75 mg tablet 75 mg PO QAM #30 tabs 06/17/24 08/19/24 Rx budesonide 160 mcg-glycopyr 9 2 inh inhalation BID 06/28/24 08/19/24 History mcg-formot 4.8 mcg/actuation HFA inhaler (Breztri Aerosphere) sacubitril 24 mg-valsartan 26 mg 1 tab PO Q12HR #30 tabs 07/05/24 08/19/24 Rx tablet (Entresto) rivaroxaban 2.5 mg tablet (Xarelto) 2.5 mg PO Q12H 07/12/24 08/19/24 History doxazosin 2 mg tablet 2 mg PO HS 08/19/24 08/19/24 History losartan 100 mg tablet 100 mg PO DAILY 08/19/24 08/19/24 History ondansetron 4 mg disintegrating 4 mg PO Q6H PRN nausea and vomiting 08/19/24 08/19/24 History tablet Allergies Allergy/AdvReac Type Severity Reaction Status Date / Time No Known Allergies Allergy Unknown Verified 07/02/24 15:25 Vital Signs Vital Signs - 24 hr 08/18/24 20:21 08/18/24 22:47 08/18/24 22:47 Temperature 97.6 F Pulse Rate 88 80 82 Respiratory Rate 22 H Blood Pressure 119/71 116/67 112/65 Pulse Oximetry 97 Oxygen Delivery Room Air Fraction of Inspired Oxygen 08/18/24 22:49 08/18/24 23:21 08/18/24 23:22 Temperature Pulse Rate 86 86 90 Respiratory Rate 22 H 20 Blood Pressure 105/65 118/61 Pulse Oximetry 96 99 Oxygen Delivery Fraction of Inspired Oxygen 08/18/24 23:30 08/18/24 23:31 08/18/24 23:45 Temperature Pulse Rate 80 81 82 Respiratory Rate 18 18 28 H Blood Pressure 114/61 Pulse Oximetry 99 97 Oxygen Delivery Fraction of Inspired Oxygen 08/18/24 23:47 06/19/25 23:57 08/19/24 00:00 Temperature Pulse Rate 80 79 81 Respiratory Rate 13 20 17 Blood Pressure 96/64 L 109/42 L Pulse Oximetry 97 97 99 Oxygen Delivery Fraction of Inspired Oxygen 08/19/24 00:01 08/19/24 00:15 08/19/24 00:16 Temperature Pulse Rate 78 74 78 Respiratory Rate 16 7 L 17 Blood Pressure 103/49 L 100/53 L Pulse Oximetry 97 96 96 Oxygen Delivery Fraction of Inspired Oxygen 08/19/24 00:30 08/19/24 00:31 08/19/24 00:45 Temperature Pulse Rate 81 82 83 Respiratory Rate 24 H 24 H 24 H Blood Pressure 112/66 Pulse Oximetry 96 Oxygen Delivery Fraction of Inspired Oxygen 08/19/24 00:46 08/19/24 01:00 08/19/24 03:00 Temperature Pulse Rate 78 80 75 Respiratory Rate 28 H 27 H Blood Pressure 115/75 Pulse Oximetry 96 97 96 Oxygen Delivery CPAP Fraction of Inspired Oxygen 08/19/24 03:00 08/19/24 04:00 08/19/24 04:41 Temperature 97.8 F Pulse Rate 75 76 79 Respiratory Rate 20 24 H Blood Pressure 118/61 Pulse Oximetry 96 100 Oxygen Delivery Room Air Fraction of Inspired Oxygen 21 08/19/24 05:01 08/19/24 06:00 08/19/24 07:43 Temperature 97.6 F Pulse Rate 77 71 79 Respiratory Rate 18 Blood Pressure 108/60 Pulse Oximetry 97 96 Oxygen Delivery CPAP Fraction of Inspired Oxygen 08/19/24 08:00 08/19/24 10:00 Temperature Pulse Rate 85 83 Respiratory Rate Blood Pressure Pulse Oximetry Oxygen Delivery Fraction of Inspired Oxygen Exam Narrative: GENERAL: Well-appearing, well-nourished, and in no acute distress. HEAD: Normocephalic, atraumatic. EYES: PERRLA and EOMI. ENT: Nares clear, no rhinorrhea or epistaxis. Mucous membranes moist. NECK: Supple. CHEST: Clear to auscultation. No respiratory distress. HEART: Regular rate and rhythm. No murmur heard. Normal peripheral pulses. ABDOMEN: Soft, nontender, nondistended, normal active bowel sounds. EXTREMITIES: Normal range of motion. No edema. SKIN: Warm, dry, no rash. NEURO: No focal deficits. Alert and oriented x3 H&P: Results Labs Labs: Short CBC 08/18/24 Range/Units 22:14 WBC 7.5 (4.5-10.0) K/mm3 Hgb 14.1 (14.0-18.0) g/dL Hct 42.6 (42.0-52.0) % Plt Count 147 L (150-375) k/mm3 BMP 08/18/24 08/19/24 22:14 09:32 Sodium 135 L 136 L Potassium 3.6 3.4 Chloride 106 106 Carbon Dioxide 17 L 17 L BUN 20 20 Creatinine 1.37 H 1.19 Glucose 140 H 180 H Calcium 9.0 8.3 L Cardiac Enzymes 08/18/24 08/19/24 08/19/24 Range/Units 22:14 01:09 04:11 Troponin I < 0.012 < 0.012 < 0.012 (0.000-0.034) ng/mL 08/19/24 Range/Units 09:32 Troponin I < 0.012 (0.000-0.034) ng/mL Liver Function 08/18/24 Range/Units 22:14 Total Bilirubin 1.2 (0.2-1.3) mg/dL AST 25 (17-59) U/L ALT 29 (6-50) U/L Alkaline Phosphatase 59 (38-126) U/L Albumin 4.3 (3.5-5.1) g/dL Urine 08/18/24 Range/Units 23:01 Urine Color Yellow (Yellow) Urine Appearance Clear (Clear) Urine pH 5.5 (5.0-9.0) Ur Specific [place] 1.027 (1.001-1.035) Urine Protein 2+ H (Negative) mg/dL Urine Glucose (UA) 3+ H (Negative) mg/dL Assessment and Plan Assessment and plan (1) Hepatomegaly: Code(s): R16.0 - Hepatomegaly, not elsewhere classified Status: Acute (2) Dehydration: Code(s): E86.0 - Dehydration Status: Acute (3) Obesity: Code(s): E66.9 - Obesity, unspecified Status: Chronic (4) Coronary artery disease status post coronary stent insertion: Code(s): I25.10 - Atherosclerotic heart disease of [place] coronary artery without angina pectoris; Z95.5 - Presence of coronary angioplasty implant and graft Status: Acute (5) Hypertension: Code(s): I10 - Essential (primary) hypertension Status: Chronic (6) Type 2 diabetes mellitus: Qualifiers: Diabetes mellitus care home insulin use: with care home use Diabetes mellitus complication status: with neurologic complications Diabetes mellitus complication detail: with unspecified neuropathy Qualified Code(s): E11.40 - Type 2 diabetes mellitus with diabetic neuropathy, unspecified; Z79.4 - senior care (current) use of insulin Code(s): E11.9 - Type 2 diabetes mellitus without complications Status: Acute (7) Nausea & vomiting: Code(s): R11.2 - Nausea with vomiting, unspecified Status: Acute Plan Nausea vomiting diarrhea Nausea vomiting improved continue off diarrhea Possible viral infection will check stool for C diff Received IV fluid Continue to monitor Dehydration/Jett I Received IV fluid Improving Continue monitor CAD status post stent placement Continue with aspirin Plavix Hold off BP medicine setting of hypotension on admission Continue meds HTN Hold off BP medicine setting of hypotension on admission DM2 SSI and AccuCheck continue to monitor Diffuse hepatic steatosis. hepatomegaly Will check CMP follow with PCP/GI as outpatient
--- NOTE | 2024-08-19 18:20 | PM.DS ---
DS: Admitting Diagnosis Discharge Date 08/19/24 Admitting Diagnosis diarrhea/gastroenteritis DS: Discharge Diagnosis Discharge Diagnosis (1) Hepatomegaly: Code(s): R16.0 - Hepatomegaly, not elsewhere classified Status: Acute (2) Dehydration: Code(s): E86.0 - Dehydration Status: Acute (3) Obesity: Code(s): E66.9 - Obesity, unspecified Status: Chronic (4) Coronary artery disease status post coronary stent insertion: Code(s): I25.10 - Atherosclerotic heart disease of [place] coronary artery without angina pectoris; Z95.5 - Presence of coronary angioplasty implant and graft Status: Acute (5) Hypertension: Code(s): I10 - Essential (primary) hypertension Status: Chronic (6) Type 2 diabetes mellitus: Qualifiers: Diabetes mellitus jail insulin use: with jail use Diabetes mellitus complication status: with neurologic complications Diabetes mellitus complication detail: with unspecified neuropathy Qualified Code(s): E11.40 - Type 2 diabetes mellitus with diabetic neuropathy, unspecified; Z79.4 - halfway (current) use of insulin Code(s): E11.9 - Type 2 diabetes mellitus without complications Status: Acute (7) Nausea & vomiting: Code(s): R11.2 - Nausea with vomiting, unspecified Status: Acute Plan Nausea vomiting diarrhea Nausea vomiting improved continue off diarrhea Possible viral infection diarrhea improved Received IV fluid Dehydration/Jett I Received IV fluid Improving Continue monitor CAD status post stent placement Continue with aspirin Plavix Hold off BP medicine setting of hypotension on admission Continue meds HTN Hold off BP medicine setting of hypotension on admission DM2 SSI and AccuCheck continue to monitor Diffuse hepatic steatosis. hepatomegaly follow with PCP/GI as outpatient DS: Summary Hospital Course Hospital Course: Patient has history of CAD status post stent placement, HTN, HLD, diabetes mellitus COPD presented with nausea vomiting and diarrhea. Patient notes on Thursday she was working outside on a hot day. Later he developed nausea vomiting and diarrhea. Vomiting improved next day but continued to have nausea and diarrhea every 20 minute. She decided to come to hospital for further management. In the ER lab test showed creatinine 1.[address] showed hepatomegaly. Patient received IV fluid and was admitted for further management. Patient was seen and examined at bedside. He is feeling better. Nausea vomiting improved. Diarrhea improved Blood pressure under better control. Patient requesting to be discharged. Status at Discharge Overall status at discharge: patient is back to baseline Time Spent with Patient Time attestation: Total time spent providing and/or coordinating discharge services: Time spent: Greater than 30 minutes Exam Narrative: GENERAL: Well-appearing, well-nourished, and in no acute distress. HEAD: Normocephalic, atraumatic. EYES: PERRLA and EOMI. ENT: Nares clear, no rhinorrhea or epistaxis. Mucous membranes moist. NECK: Supple. CHEST: Clear to auscultation. No respiratory distress. HEART: Regular rate and rhythm. No murmur heard. Normal peripheral pulses. ABDOMEN: Soft, nontender, nondistended, normal active bowel sounds. EXTREMITIES: Normal range of motion. No edema. SKIN: Warm, dry, no rash. NEURO: No focal deficits. Alert and oriented x3 DS: Data Data Completed and Pending Labs on day of discharge: Labs from last 24 hours 08/19/24 08/19/24 08/19/24 11:08 09:32 04:11 WBC RBC Hgb Hct MCV MCH MCHC RDW Plt Count MPV Immature Gran % (Auto) Neut % (Auto) Lymph % (Auto) [place] % (Auto) Eos % (Auto) Baso % (Auto) Lymph # (Auto) [place] # (Auto) Eos # (Auto) Baso # (Auto) Abs Immat Gran (auto) Absolute Neuts (auto) Absolute Nucleated RBC Nucleated RBC % Sodium 136 L Potassium 3.4 Chloride 106 Carbon Dioxide 17 L Anion Gap 13 H BUN 20 Creatinine 1.19 Estim Creat Clear Calc 78 Estimated GFR > 60 Glucose 180 H POC Capillary Glucose 158 H Calcium 8.3 L Magnesium Total Bilirubin AST ALT Alkaline Phosphatase Troponin I < 0.012 < 0.012 NT-Pro-B Natriuret Pep Total Protein Albumin Lipase Urine Color Urine Appearance Urine pH Ur Specific [place] Urine Protein Urine Glucose (UA) Urine Ketones Ur Blood (Man) Urine Nitrate Urine Bilirubin Urine Urobilinogen Add Ur Microanalysis Leukocyte Esterase Rfl Urine RBC Urine WBC Ur Squamous Epith Cells Urine Bacteria Urine Casts Hyaline Casts Influenza A (RT-PCR) Influenza B (RT-PCR) RSV (RT-PCR) SARS-CoV-2 RNA (RT-PCR) 08/19/24 08/19/24 08/18/24 02:48 01:09 23:01 WBC RBC Hgb Hct MCV MCH MCHC RDW Plt Count MPV Immature Gran % (Auto) Neut % (Auto) Lymph % (Auto) [place] % (Auto) Eos % (Auto) Baso % (Auto) Lymph # (Auto) [place] # (Auto) Eos # (Auto) Baso # (Auto) Abs Immat Gran (auto) Absolute Neuts (auto) Absolute Nucleated RBC Nucleated RBC % Sodium Potassium Chloride Carbon Dioxide Anion Gap BUN Creatinine Estim Creat Clear Calc Estimated GFR Glucose POC Capillary Glucose 120 H Calcium Magnesium Total Bilirubin AST ALT Alkaline Phosphatase Troponin I < 0.012 NT-Pro-B Natriuret Pep Total Protein Albumin Lipase Urine Color Yellow Urine Appearance Clear Urine pH 5.5 Ur Specific [place] 1.027 Urine Protein 2+ H Urine Glucose (UA) 3+ H Urine Ketones Trace H Ur Blood (Man) Negative Urine Nitrate Negative Urine Bilirubin Negative Urine Urobilinogen 0.2 Add Ur Microanalysis Reviewed Leukocyte Esterase Rfl Negative Urine RBC 0-2 Urine WBC 0-5 Ur Squamous Epith Cells None seen Urine Bacteria None seen Urine Casts 11-20 Hyaline Casts Present Influenza A (RT-PCR) Influenza B (RT-PCR) RSV (RT-PCR) SARS-CoV-2 RNA (RT-PCR) 08/18/24 22:14 WBC 7.5 RBC 4.69 Hgb 14.1 Hct 42.6 MCV 90.8 MCH 30.1 MCHC 33.1 RDW 14.5 Plt Count 147 L MPV 11.0 H Immature Gran % (Auto) 0.3 Neut % (Auto) 64.5 Lymph % (Auto) 15.0 L [place] % (Auto) 17.8 H Eos % (Auto) 2.3 Baso % (Auto) 0.1 L Lymph # (Auto) 1.13 [place] # (Auto) 1.3 H Eos # (Auto) 0.2 Baso # (Auto) 0.0 Abs Immat Gran (auto) 0.02 Absolute Neuts (auto) 4.9 Absolute Nucleated RBC 0.000 Nucleated RBC % 0.0 Sodium 135 L Potassium 3.6 Chloride 106 Carbon Dioxide 17 L Anion Gap 12 BUN 20 Creatinine 1.37 H Estim Creat Clear Calc 68 Estimated GFR 52 L Glucose 140 H POC Capillary Glucose Calcium 9.0 Magnesium 1.8 Total Bilirubin 1.2 AST 25 ALT 29 Alkaline Phosphatase 59 Troponin I < 0.012 NT-Pro-B Natriuret Pep 61 Total Protein 7.5 Albumin 4.3 Lipase 87 Urine Color Urine Appearance Urine pH Ur Specific [place] Urine Protein Urine Glucose (UA) Urine Ketones Ur Blood (Man) Urine Nitrate Urine Bilirubin Urine Urobilinogen Add Ur Microanalysis Leukocyte Esterase Rfl Urine RBC Urine WBC Ur Squamous Epith Cells Urine Bacteria Urine Casts Hyaline Casts Influenza A (RT-PCR) Negative Influenza B (RT-PCR) Negative RSV (RT-PCR) Negative SARS-CoV-2 RNA (RT-PCR) Negative Discharge Plan Discharge Attending physician on discharge: Ney Oreilly Discharging Clinician: Ney Oreilly Anticipated Discharge Date/Time: 08/19/24 18:22 Patient Disposition: Home Activity: as tolerated Diet: as tolerated and heart healthy Discharge Instructions: follow with PCP in one week. Please check blood pressure and heart rate regularly and report to PCP Follow-up GI clinic regarding your enlarged liver/fatty liver Patient Instructions: Antibiotic Form Patient Language: Bulgarian Stand Alone Forms: General Discharge Information Follow-up/Referrals: Angelina,JOVITA Junior [Primary Care Provider] - 1 Week Discharge Medications: Continued NetScalerztri Aerosphere 160-9-4.8 mcg/actuation HFA aerosol inhaler 2 inh INHALATION BID isosorbide mononitrate 60 mg tablet extended release 24 hr 120 mg PO DAILY aspirin [Children's Aspirin] 81 mg tablet,chewable 81 mg PO DAILY carvedilol [Coreg] 12.5 mg Tablet 12.5 mg PO Q12HR Qty: 60 0RF nitroglycerin [Nitrostat] 0.4 mg Tablet, Sublingual 0.4 mg sublingual Q5MIN PRN (Reason: Chest Pain) Qty: 26 0RF omeprazole 40 mg capsule,delayed release(DR/EC) 40 mg PO DAILY Qty: 30 0RF tamsulosin 0.4 mg capsule 0.4 mg PO HS Qty: 30 0RF Jardiance 10 mg tablet 10 mg PO DAILY Qty: 30 0RF atorvastatin 80 mg tablet 80 mg PO DAILY Trulicity 3 mg/0.5 mL pen injector 3 mg SUBCUT WEEKLY Patient Comments: TAKES ON Tuesdays clopidogrel 75 mg Tablet 75 mg PO QAM Qty: 30 0RF Entresto 24-26 mg Tablet 1 tab PO Q12HR Qty: 30 0RF doxazosin 2 mg tablet 2 mg PO HS ondansetron 4 mg tablet,disintegrating 4 mg PO Q6H PRN (Reason: nausea and vomiting) bupropion HCl [Wellbutrin SR] 150 mg tablet sustained-release 12 hr 150 mg PO Q12H metformin 1,000 mg tablet 1,000 mg PO BID alprazolam 0.25 mg tablet 0.25 mg PO HS Rx Instructions: at bedtime rivaroxaban [Xarelto] 2.5 mg tablet 2.5 mg PO Q12H Held furosemide 40 mg tablet 40 mg PO DAILY Hold Instructions: Resume on 08/21/24. amlodipine 10 mg tablet 10 mg PO DAILY Hold Instructions: Resume on 08/20/24. Resume if blood pressure running high Discontinued losartan 100 mg tablet 100 mg PO DAILY Date of admission: 08/19/24 00:52 Primary Care Provider: Angelina,Sandi Admitting Provider: Lindsay Wright Attending physician on admission: Ney Oreilly Condition: Stable
== END 2024-08-19 18:40 | disposition home or self-care (01) ==
LOC: ANHED 08-19 00:52 → ANHIMU 08-19 01:21 → ANH3MEDSUR 08-19 16:11
PROVIDERS: Admitting Provider Internal Medicine; Emergency Provider Physician Assistant; PCP Registered Nurse; Visit Provider Internal Medicine
DX: R19.7 Diarrhea, unspecified (principal); R11.2 Nausea with vomiting, unspecified; R16.0 Hepatomegaly, not elsewhere classified; K76.0 Fatty (change of) liver, not elsewhere classified; N17.9 Acute kidney failure, unspecified; E86.0 Dehydration; E66.9 Obesity, unspecified; I95.9 Hypotension, unspecified; Z68.39 Body mass index [BMI] 39.0-39.9, adult; I25.10 Atherosclerotic heart disease of native coronary artery without angina pectoris; I11.0 Hypertensive heart disease with heart failure; I50.9 Heart failure, unspecified; I25.2 Old myocardial infarction; E11.42 Type 2 diabetes mellitus with diabetic polyneuropathy; E11.51 Type 2 diabetes mellitus with diabetic peripheral angiopathy without gangrene; E78.5 Hyperlipidemia, unspecified; K21.9 Gastro-esophageal reflux disease without esophagitis; J44.9 Chronic obstructive pulmonary disease, unspecified; G47.33 Obstructive sleep apnea (adult) (pediatric); Z20.822 Contact with and (suspected) exposure to COVID-19; Z86.16 Personal history of COVID-19; Z79.01 Long term (current) use of anticoagulants; Z79.02 Long term (current) use of antithrombotics/antiplatelets; Z79.51 Long term (current) use of inhaled steroids; Z79.82 Long term (current) use of aspirin; Z79.84 Long term (current) use of oral hypoglycemic drugs; Z79.85 Long-term (current) use of injectable non-insulin antidiabetic drugs; Z79.899 Other long term (current) drug therapy; Z87.891 Personal history of nicotine dependence; Z86.718 Personal history of other venous thrombosis and embolism; Z86.73 Personal history of transient ischemic attack (TIA), and cerebral infarction without residual deficits; Z95.5 Presence of coronary angioplasty implant and graft; Z99.89 Dependence on other enabling machines and devices
CPT/HCPCS: 36415; 71045; 74177; 80048; 80053; 81001; 82948; 83690; 83735; 83880; 84484; 85025; 87637; 93005; 96361; 96374; 99285; A9270; G0378; J2405; J7030; Q9967

== ENCOUNTER 2024-09-08 08:45 | Outpatient (RCR) | payer MEDICARE, MEDICAID, SELFPAY ==
[2024-07-08 08:49] VITALS: PULSE 78
== END 2024-09-08 23:59 | disposition home or self-care (01) ==
LOC: ANHCPREHAB 08:45
PROVIDERS: PCP Registered Nurse; Visit Provider Internal Medicine
DX: Z95.5 Presence of coronary angioplasty implant and graft (principal)
CPT/HCPCS: 93798

== ENCOUNTER 2024-09-10 15:20 | Emergency (ER) | payer MEDICARE, MEDICAID, SELFPAY ==
[2024-09-10 15:59] VITALS: BP 123/72; PULSE 90; RESP 20; TEMP 36.2; O2SAT 98
--- NOTE | 2024-09-10 16:27 | ED.GENADULT ---
HPI - General Adult General Chief complaint: Back Pain/Injury Stated complaint: L FLANK PAIN / R SCIATICA PAIN Time Seen by Provider: 09/10/24 16:27 Source: patient, RN notes reviewed and old records reviewed Mode of arrival: ambulatory Limitations: no limitations History of Present Illness HPI narrative: 64-year-old male presents to the [facility] with 2 complaints. Reports left flank pain, concern for kidney stone. HX of kidney stones, symptoms just started as he was driving here. Reports urinary urgency, nausea. Has a strong smell. No treatment prior to arrival Also reports right sciatic pain. Patient reports pain started in the right buttock traveling down his leg. Started approximately 2:00 p.m. today. No treatment prior to arrival. Onset (ago): hour(s) Treatments prior to arrival: none Related Data Home Medications ?Medication ?Instructions ?Recorded ?Confirmed ?Last Taken ?Type amlodipine 10 mg tablet 10 mg PO DAILY 01/24/19 08/19/24 08/16/24 History bupropion HCl 150 mg tablet,12 hr 150 mg PO Q12H 01/24/19 09/10/24 08/16/24 History sustained-release (Wellbutrin SR) metformin 1,000 mg tablet 1,000 mg PO BID 01/24/19 09/10/24 08/16/24 History isosorbide mononitrate 60 mg 120 mg PO DAILY 01/09/20 09/10/24 08/16/24 History tablet,extended release 24 hr alprazolam 0.25 mg tablet 0.25 mg PO HS 08/21/21 09/10/24 08/16/24 History aspirin 81 mg chewable tablet 81 mg PO DAILY 09/29/21 09/10/24 08/16/24 History (Children's Aspirin) atorvastatin 80 mg tablet 80 mg PO DAILY 06/13/24 09/10/24 08/16/24 History dulaglutide 3 mg/0.5 mL 3 mg subcut WEEKLY 06/13/24 09/10/24 08/16/24 History subcutaneous pen injector (Trulicity) furosemide 40 mg tablet 40 mg PO DAILY 06/13/24 08/19/24 08/16/24 History budesonide 160 mcg-glycopyr 9 2 inh inhalation BID 06/28/24 09/10/24 08/16/24 History mcg-formot 4.8 mcg/actuation HFA inhaler (Breztri Aerosphere) rivaroxaban 2.5 mg tablet (Xarelto) 2.5 mg PO Q12H 07/12/24 09/10/24 08/16/24 History doxazosin 2 mg tablet 2 mg PO HS 08/19/24 09/10/24 08/16/24 History losartan 100 mg tablet mg 09/10/24 Unknown History Allergies Allergy/AdvReac Type Severity Reaction Status Date / Time No Known Allergies Allergy Unknown Verified 09/10/24 15:54 Review of Systems Review of Systems: All systems reviewed & are unremarkable except as noted in HPI and below Constitutional: Constitutional: Reports no additional constitutional complaints Gastrointestinal: Gastrointestinal: Reports as per HPI and Reports nausea Genitourinary: Genitourinary: Reports as per HPI Musculoskeletal: Musculoskeletal: Reports as per HPI Integumentary/Breasts: Skin/Breast: Reports system reviewed and no additional complaints, except as docu PMFSH Past Medical History Medical History Hypertension Coronary artery disease Stent to the distal circumflex and Left anterior descending in 2014. Left anterior descending stent in 04/2015. COVID Transient ischemic attack Diabetic peripheral neuropathy Peripheral vascular disease Deep venous thrombosis Gastric ulcer Obstructive sleep apnea on CPAP Hyperlipidemia Type 2 diabetes mellitus Gastroesophageal reflux disease Chronic obstructive pulmonary disease Cerebrovascular accident Mild left-sided weakness. Congestive heart failure BMI greater than 40 Chronic anticoagulation Hydronephrosis Psoriasis Depression Fracture of fifth toe, right, closed Kidney stones Pneumonia Myocardial infarction Seasonal allergies Surgical History Surgical History History of coronary artery stent placement History of tonsillectomy History of cholecystectomy History of lithotripsy History of rectal polypectomy History of cardiac catheterization 2 stents Family History Family History Mother Diabetes mellitus Arthritis Kidney stones Coronary artery disease Father Acute myocardial infarction Heart disease Kidney stones Hypertension Coronary artery disease Sibling Coronary artery disease Heart disease Hx of CABG Social History Social History Social History: Surrogate decision maker: Rena Dodd, friend. Code status: Full code. Smoking packs per day: 1 Smoking cigarettes per day: 20.0 Years smoked: 47 Smoking pack-years: 47.00 Smoking status: Former smoker Tobacco type: cigarettes Second hand tobacco smoke exposure: Yes Smoking end date: 02/22/24 Alcohol intake: never Drinks per week: 0 Substance use: never Substance use type: does not use Last use: 10/01/2023 Do You Feel Safe in your Home?: Yes Lack of Transportation: No Lack of Food: Never True Current Housing: I Have Housing Concerned About Future Housing: No Difficulty Paying Gas/Electric Bills: No Difficulty Paying for Meds: No Currently Unemployed: No Education: Decline to Answer Difficulty w/ Childcare or Family Care: No Living arrangements: with roommate(s) Additional living arrangements comments: The patient lives in [place] with a roommate. He has no children. Occupation/Education: other Additional occupation/education comments: Disabled. Spiritual care concerns: No Comments At the time of my signature, I reviewed and agree with the nursing past medical, surgical, social, and family history. There is no relevant family history pertinent to the patient complaint. Exam Const: General: cooperative, no acute distress, well developed, alert and well nourished Nutritional Appearance: well nourished and obese Orientation/consciousness: patient oriented x3 Limitations: no limitations HENMT: Head: normal to inspection Eyes: General: appearance normal, both eyes and all related structures Alignment and Position: alignment normal Neck: Neck: normal visual inspection, full ROM, no lymphadenopathy and no meningeal signs Chest: Chest palpation & inspection: normal inspection of the chest Resp: Effort & Inspection: normal respiratory effort and able to speak in complete sentences Auscultation: clear to auscultation bilaterally, no crackles, no rales, no rhonchi and no wheezes Cardio: Rate: regular rate GI: GI Palp: No abdominal tenderness Back/Spine/Pelvis: Back: back tenderness Skin: General skin exam: normal color and no rashes or lesions noted Neuro: General: patient oriented x3, gait normal, moves all extremities and no meningeal signs Cognition (Neuro): normal cognition Speech: normal speech Gait exam (Neuro): Normal gait present Extrem: General: normal to inspection, full ROM, capillary refill normal and normal gait Psych: Appearance: grossly normal and well kempt Mental Status: mental status grossly normal Speech and movement: Normal speech and movement present and Clear speech present Affect: normal affect Attitude: cooperative Course Course Level of Care: Express Care Visit Vital Signs Vital signs: Vital Signs Temperature 97.2 F L 09/10/24 15:59 Pulse Rate 90 09/10/24 15:59 Respiratory Rate 20 09/10/24 15:59 Blood Pressure 123/72 09/10/24 15:59 Pulse Oximetry 98 09/10/24 15:59 Temperature 97.2 F L 09/10/24 15:59 Pulse Rate 90 09/10/24 15:59 Respiratory Rate 20 09/10/24 15:59 Blood Pressure 123/72 09/10/24 15:59 Pulse Oximetry 98 09/10/24 15:59 Reviewed Transfer Transfered to: [place] (Per patient request) Transportation: Other (POV, declined EMS, states that a family member will drive him) Transfer rationale: Patient with both right sciatic pain, left flank pain, concern for kidney stone sending for higher level of care, testing and treatment Accepting physician: Medical Decision Making MDM Narrative Medical decision making narrative: Patient sitting in exam room. Patient is nontoxic, vitals are stable. Patient presents with concerns of kidney stone, sciatic pain. Started just prior to arrival. Patient is most concerned with the kidney stone, had a history of needing stents Patient with a significant cardiac history as well as having renal insufficiency recently. Sending for higher level of care Transfer instructions reviewed with patient to go directly to the ER. EMS offered, patient declined. Patient states that a family member will drive him. All questions have been answered, and the patient deny any further questions. Some parts of this dictation were generated by voice recognition software and may contain typographical and/or grammatical inaccuracies. Differential Diagnosis Differential Diagnosis: Sciatica, kidney stone, UTI, abdominal pain, muscle strain Medical Records Medical records reviewed: Yes I reviewed the external patient's medical records. Vital Signs Vital Signs: Vital Signs Temperature 97.2 F L 09/10/24 15:59 Pulse Rate 90 09/10/24 15:59 Respiratory Rate 09/10/24 15:59 Blood Pressure 123/72 09/10/24 15:59 Pulse Oximetry 98 09/10/24 15:59 Temperature 97.2 F L 09/10/24 15:59 Pulse Rate 90 09/10/24 15:59 Respiratory Rate 20 09/10/24 15:59 Blood Pressure 123/72 09/10/24 15:59 Pulse Oximetry 98 09/10/24 15:59 Reviewed Lab Data Lab results reviewed: Yes I reviewed the patient's lab results. Labs: Reviewed Critical Care Time Critical Care Time Critical Care Time: No Discharge Plan Discharge Clinical Impression: Acute left flank pain Patient Disposition: Acute Care Hospital Condition: Stable Patient Language: Uzbek Prescriptions: No Action Breztri Aerosphere 160-9-4.8 mcg/actuation HFA aerosol inhaler 2 inh INHALATION BID losartan 100 mg tablet isosorbide mononitrate 60 mg tablet extended release 24 hr 120 mg PO DAILY aspirin [Children's Aspirin] 81 mg tablet,chewable 81 mg PO DAILY carvedilol [Coreg] 12.5 mg Tablet 12.5 mg PO Q12HR Qty: 60 0RF nitroglycerin [Nitrostat] 0.4 mg Tablet, Sublingual 0.4 mg sublingual Q5MIN PRN (Reason: Chest Pain) Qty: 26 0RF omeprazole 40 mg capsule,delayed release(DR/EC) 40 mg PO DAILY Qty: 30 0RF tamsulosin 0.4 mg capsule 0.4 mg PO HS Qty: 30 0RF Jardiance 10 mg tablet 10 mg PO DAILY Qty: 30 0RF atorvastatin 80 mg tablet 80 mg PO DAILY Trulicity 3 mg/0.5 mL pen injector 3 mg SUBCUT WEEKLY Patient Comments: TAKES ON Tuesdays furosemide 40 mg tablet 40 mg PO DAILY clopidogrel 75 mg Tablet 75 mg PO QAM Qty: 30 0RF Entresto 24-26 mg Tablet 1 tab PO Q12HR Qty: 30 0RF doxazosin 2 mg tablet 2 mg PO HS bupropion HCl [Wellbutrin SR] 150 mg tablet sustained-release 12 hr 150 mg PO Q12H amlodipine 10 mg tablet 10 mg PO DAILY metformin 1,000 mg tablet 1,000 mg PO BID alprazolam 0.25 mg tablet 0.25 mg PO HS Rx Instructions: at bedtime rivaroxaban [Xarelto] 2.5 mg tablet 2.5 mg PO Q12H Follow-up/Referrals: Angelina,JOVITA Junior [Primary Care Provider] -
== END 2024-09-10 16:48 | disposition short-term general hospital (02) ==
PROVIDERS: Emergency Provider Nurse Practitioner; PCP Registered Nurse
DX: M54.31 Sciatica, right side (principal); I25.10 Atherosclerotic heart disease of native coronary artery without angina pectoris; E78.5 Hyperlipidemia, unspecified; E11.9 Type 2 diabetes mellitus without complications; I10 Essential (primary) hypertension; I25.2 Old myocardial infarction; Z86.73 Personal history of transient ischemic attack (TIA), and cerebral infarction without residual deficits; Z79.899 Other long term (current) drug therapy; Z79.01 Long term (current) use of anticoagulants; Z79.82 Long term (current) use of aspirin; Z87.891 Personal history of nicotine dependence
CPT/HCPCS: 99212; G0463

== ENCOUNTER 2024-09-10 17:18 | Emergency (ER) | payer MEDICARE, MEDICAID, SELFPAY ==
--- NOTE | ~2024-09-10 | CT_ITS ---
CT abdomen pelvis wo con Ordering provider: Clifton Klein MD History: 64 years Male with . L flank pain, R sciatica . Comparison: August 18, 2024 Technique: CT abdomen and pelvis without IV and without oral contrast. Automated exposure control and iterative reconstruction technique were employed. The dose-length product was 1239.85 mGy-cm. Findings: VISUALIZED LOWER CHEST: Dependent atelectatic changes. Trace of left pleural effusion. UPPER ABDOMINAL ORGANS: Liver: Hepatomegaly. Gallbladder: Normal. Spleen: Normal. Stomach/duodenum: Normal. Pancreas: Normal. Adrenals: Bilateral adrenal myelolipomas unchanged from previous examination. Kidneys: Left kidney stone measuring 4 mm. Tiny stone in the right kidney lower A cyst is seen in th e right kidney lower pole measuring 3.16 PELVIC ORGANS: The bladder is underfilled. BOWEL AND MESENTERY: Colon:. No evidence of diverticulitis. Normal appendix. Small Bowel: Normal. No obstruction. Peritoneum/mesentery: No free air or free fluid. No mesenteric lymphadenopathy. RETROPERITONEUM: Mild atheromatous disease of the abdominal aorta. No retroperitoneal lymphadenopat hy. MUSCULOSKELETAL: Superficial soft tissues: Bilateral fat containing inguinal hernias larger on the right side. Otherw ise, The superficial soft tissues are normal. Bones: Age appropriate degenerative changes of the spine. Mild bilateral hip osteoarthritic changes. Bilateral sacroiliitis more on the right side. IMPRESSION: 1. No evidence of appendicitis, diverticulitis or intestinal obstruction. 2. Bilateral kidney stones. Right renal cyst. 3. Hepatomegaly. 4. Bilateral adrenal myelolipoma is unchanged from previous examination. 5. Bilateral fat containing inguinal hernias. Reviewed, dictated and finalized at location A.
--- OUTSIDE RECORDS SUMMARY | 2024-09-10 17:21 | XMS_ITS | Clinical Summary ---
Author Organization [facility] [address] Address [address] [place] [address] Care Team Providers Care Dental Laboratory Technology Teacher Name Role Phone Sandi Alfaro Primary Care [...] 24 hr tabletIndicatio ns:Coronary artery disease of mechoopda artery of mechoopda heart with stable angina pectoris TAKE 2 TABLETS BY MOUTH EVERY DAY 180 tablet 1 08/16/19 25 Active isosorbide mononitrate ER (IMDUR) 60 mg 24 hr tabletIndicatio ns:Coronary artery disease of mechoopda artery of mechoopda heart with stable angina pectoris TAKE 2 TABLETS BY MOUTH DAILY. 180 tablet 3 08/10/19 24 025 Discontinued Active Problems Problem Noted Date Diagnosed Date Hematuria, gross 11/13/2021 Chronic heart failure with preserved ejection fr action 11/12/2018 Cryptogenic stroke 07/06/2018 Status post placement of implantable loop record er 10/13/2017 Overview (10/13/2017): Medtronic Reveal Loop Recorder. Dx; Cryptogenic Stroke. DOI 10/12/[address] Willoughby. [facility] remote monitoring. TIA (transient ischemic attack) 10/06/2017 S/P coronary artery stent placement 12/17/2016 Morbid obesity with BMI of 45.0-49.9, adult ([facility]) 08/13/2016 Mixed anxiety depressive disorder 05/01/2015 Overview (06/07/2016): Anxiety and depression Coronary artery disease of n ative artery of mechoopda heart with stable angina pectoris 02/20/2015 Overview (06/07/2016): Coronary artery disease involving mechoopda coronary artery of mechoopda heart with other form of angina pectoris CVA, old, hemiparesis 02/20/2015 Overview (06/07/2016): CVA, old, hemiparesis Mixed diabetic hyperlipidemi a associated with type 2 diabetes mellitus ([facility]) 02/20/2015 Overview (06/07/2016): DM type 2 [...] Department Care Team Description 07/20/2024 Orders Only [facility] Health Information Management [address] [place] [id number] Scanning, Provider 07/12/2024 11:45 AM CDT Office Visit [facility] [address] [place], [place] [phone] Fernando Modi MD Coronary artery disease of mechoopda artery of mechoopda heart with stable angina pectoris (Primary Dx); Chronic heart failure with preserved ejection fraction (HCC) 07/11/2024 Telephone [facility] [address] [facility] [address] [place] [phone] Julio Richardson MD 07/08/2024 Telephone [facility] Cardiology [address] [facility] [address] [place] [phone] Fernando Modi MD 07/08/2024 Orders Only [facility] Cardiology [address] [facility] [address] [place] [phone] Julio Richardson MD 06/29/2024 Telephone [facility] Cardiology [address] [facility] [address] [place] [phone] Fernando Modi MD 06/21/2024 Orders Only [facility] Cardiology [address] 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 Gender Identity Male 09/03/2018 6:22 AM CDT [...] 10/19/2024 10/20/2023, 04/30, 07/01/2022, Additional history exists Influenza Vaccine (#1) 2024 , 12/23/2022, 12/31/2021, Additional history exists DTaP/Tdap/Td Vaccine (3 - Td or Tdap) 02/25/2026 02/26/2016, 11/22/2014 Procedures Procedure Name Priority Date/Time Associated Diagnosis [...] Relevant to Health Maintenance [place] [address] MEDICARE MEDICARE [facility] Care Teams Dental Laboratory Technology Teacher Relationship Specialty Start Date End Date Sandi Alfaro PA PCP - General Nurse Practitioner 08/21/17
--- OUTSIDE RECORDS SUMMARY | 2024-09-10 17:21 | XMS_ITS ---
Author Organization [facility] Address [address] [place], [place] [id number] Care Team Providers Care Ticket Clerk Name Role Phone PIETER WALSH Unavailable [phone] Sandi Alfaro Unavailable Unavailable REASON FOR VISIT dropped rolling pin on right foot. - canc. by pt., in hospital Encounters Encounter Location Date Provider Diagnosis [facility] [place] [address] [facility] [address] [place], [place] [phone] 07/04/2024 PIETER WALSH Plan Of Treatment Next Appt Details Provider Name:PIETER WALSH, 08:00:00 AM, [address], [place], [place], [phone], Progress Notes * KLAUDIA HALEY BDOB:[birth year] (64 yo M)Acc No.[id number]:07/04/2024 Patient: Trina BISHOP KLAUDIA Marin Provider: Kristal Walsh DPM :1960 A ge:64 Y S ex:Male Date:07/04/2024 Address:[address], [id number] Subjective: * Chief Complaints: * 1 . Dropped rolling pin on right foot. - canc. by pt., in hospital. * Medical History: Objective: * Vitals: Assessment: Plan: * Treatment: * Billing Information: * Visit Code: * Procedure Codes: * Electronic signature of PIETER WALSH DPM on 09/10/2024 at 05:21 PM CDT Sign off status: Pending * Provider: Kristal Walsh DPM Date: 0 07/04/2024 Generated for Michelle Rust on: 0 09/10/2024 05:21 PM CDT
--- OUTSIDE RECORDS SUMMARY | 2024-09-10 17:21 | XMS_ITS | Encounter Summary ---
Author Organization [facility] Address [address] [place] [address] Care Team Providers Care Delicatessen Slicer Name Role Phone Sandi Alfaro Primary Care Provider + Encounter Details Date Type Department Care Team (Late st Contact Info) Description 07/20/2024 Orders Only [facility] Health Information Management [address] [place] [phone] Scanning, Provider Social History Tobacco Use Types Packs/Day Years Used Date Smoking Tobacco: Some Days Cigarettes 0.3 15 Smokeless Tobacco: Never Alcohol Use Standard Drinks/Week Comments Yes 0 (1 standard drink = 0.6 oz pur e alcohol) Sex and Gender Information Value Date Recorded Sex Assigned at Not on file Legal Sex Male 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
--- OUTSIDE RECORDS SUMMARY | 2024-09-10 17:21 | XMS_ITS | Patient Health Record ---
Author Organization [facility] Address [address] [place], [place] [phone] Care Team Providers Care Dye Jig Operator Name Role Phone PIETER WALSH Unavailable [phone] Sandi Alfaro Unavailable Unavailable Allergies No Known Allergies Reason For Referral No Information Medications Medication SIG (Take, Route, Frequency, Duration) Notes Start Date End Date Status clotrimazole 10 MG/ML Topical Cream CUTANEOUS clotrimazole 10 MG/ML Topical CreamOriginal Medicationclotrimazole 10 MG/ML Topical Cream *Reorder from [facility] for eRx and Interaction Alerts* 7 Active betamethasone 0.5 MG/ML / clotrimazole 10 MG/ML Topical Cream CUTANEOUS betamethasone 0.5 MG/ML / clotrimazole 10 MG/ML Topical CreamOriginal Medicationbetamethasone 0.5 MG/ML / clotrimazole 10 MG/ML Topical Cream *Reorder from [facility] for eRx and Interaction Alerts* 7 Active Augmented betamethasone 0.5 MG/ML Topical Cream CUTANEOUS Augmented betamethasone 0.5 MG/ML Topical CreamOriginal MedicationAugmented betamethasone 0.5 MG/ML Topical Cream *Reorder from [facility] for eRx and Interaction Alerts* 7 Active clobetasol propionate 0.0005 MG/MG Topical Ointment [Temovate] CUTANEOUS clobetasol propionate 0.0005 MG/MG Topical Ointment [Temovate]Original Medicationclobetasol propionate 0.0005 MG/MG Topical Ointment [Temovate] *Reorder from [facility] for eRx and Interaction Alerts* 7 Active betamethasone 0.5 MG/ML / clotrimazole 10 MG/ML Topical Cream [Lotrisone] CUTANEOUS betamethasone 0.5 MG/ML / clotrimazole 10 MG/ML Topical Cream [Lotrisone]Original Medicationbetamethasone 0.5 MG/ML / clotrimazole 10 MG/ML Topical Cream [Lotrisone] *Reorder from [employer] for eRx and Interacti 7 Active Immunizations [...] Location Date Provider Diagnosis [facility] [place] [address] [place] [phone] 09/14/2023 PIETER SNOOK Nondisplaced unspeci fied fracture of right lesser toe(s), subsequent encounter for fracture with routine healing S92.504D and Pain in left toe(s) M79.675 [facility] [place] [address] [place] [phone] 11/09/2023 PIETER SNOOK Tinea unguium B35.1 ; Pain in right toe(s) M79.674 ; Pain in left toe(s) M79.675 ; Atherosclerosis of picayune arteries of extremities with intermittent claudication, bilateral legs I70.213 and Type 2 diabetes mellitus with other circulatory complications E11.59 [facility] [place] [address] [place] [phone] 01/25/2024 PIETER SNOOK Tinea unguium B35.1 ; Pain in right toe(s) M79.674 ; Pain in left toe(s) M79.675 ; Atherosclerosis of pic[place]une arteries of extremities with intermittent claudication, bilateral legs I70.213 and Type 2 diabetes mellitus with other circulatory complications E11.59 [facility] [place] [address] [place] [phone] 03/28/2024 PIETER SNOOK Tinea unguium B35.1 ; Pain in right toe(s) M79.674 ; Pain in left toe(s) M79.675 ; Atherosclerosis of pic[place]une arteries of extremities with intermittent claudication, bilateral legs I70.213 and Type 2 diabetes mellitus with other circulatory complications E11.59 [facility] [place] [address] [place] [phone] 06/27/2024 PIETER SNOOK Tinea unguium B35.1 ; Pain in right toe(s) M79.674 ; Pain in left toe(s) M79.675 ; Atherosclerosis of picayune arteries of extremities with intermittent claudication, bilateral legs I70.213 and Type 2 diabetes mellitus with other circulatory complications E11.59 Assessments Encounter Date Diagnosis (ICD Code) Assessment Notes Treatment Notes Treatment Clinical Notes Section Notes 09/14/2023 Pain in left toe(s) (ICD-10 - [...] toe(s) (ICD-10 - M79.675) 03/28/2024 Atherosclerosis of picayune arteries of extremities with intermittent claudication, bilateral legs (ICD-10 - I70.213) 06/27/2024 Pain in left toe(s) (ICD-10 - M79.675) 06/27/2024 Atherosclerosis of picayune arteries of extremities with intermittent claudication, bilateral legs (ICD-10 - I70.213) 01/25/2024 Atherosclerosis of picayune arteries of extremities with intermittent claudication, bilateral [...] the Amputation Prevention Guide. 11/09/2023 Atherosclerosis of picayune arteries of extremities with intermittent claudication, bilateral [...] Treatment Next Appt Details Provider Name:PIETER JILLIAN, 08:00:00 AM, [address], [address], [phone], Insurance Providers Payer Name Payer Address Payer Phone Subscriber Number Group Number Insured Name Patient Relationship to Insured Coverage Start Date Coverage End Date Medicare Part B [facility] [address] [place] [phone] [id number] KLAUDIA HALEY Self - patient is the insured
--- OUTSIDE RECORDS SUMMARY | 2024-09-10 17:21 | XMS_ITS | Referral Summary ---
Author Organization [facility] [address] [place] [address] [address] [place] [address] Care Team Providers Care Acidizer Water Well Name Role Phone Sandi Alfaro Primary Care Provider + Encounters Date Type Department Care Team Description 07/20/2024 Orders Only [facility] Health Information Management [address] [place] [address] Scanning, Provider 07/12/2024 11:45 AM CDT Office Visit [facility] Medical [facility] Cardiology [address] [place] [address] Fernando Modi MD Coronary artery disease of lime artery of lime heart with stable angina pectoris (Primary Dx); Chronic heart failure with preserved ejection fraction (HCC) 07/11/2024 Telephone [facility] Medical [facility] Cardiology [address] [place] [address] Julio Richardson MD 07/08/2024 Telephone [facility] Medical [facility] Cardiology [address] [place] [address] Fernando Modi MD 07/08/2024 Orders Only [facility] Cardiology [address] [facility] [address] [place] [address] Julio Richardson MD 06/29/2024 Telephone [facility] Medical [facility] Cardiology [address] [place] [address] Fernando Modi MD 06/21/2024 Orders Only [facility] Medical [facility] Cardiology [address] [place] [address] Paola Nolen MD 06/13/2024 Orders Only [facility] Health Information Management [address] [place] [address] Paola Nolen MD from Last 3 Months [...] 24 hr tabletIndicatio ns:Coronary artery disease of lime artery of lime heart with stable angina pectoris TAKE 2 TABLETS BY MOUTH EVERY DAY 180 tablet 1 08/16/19 25 Active isosorbide mononitrate ER (IMDUR) 60 mg 24 hr tabletIndicatio ns:Coronary artery disease of lime artery of lime heart with stable angina pectoris TAKE 2 TABLETS BY MOUTH DAILY. 180 tablet 3 08/10/19 24 025 Discontinued Active Problems Problem Noted Date Diagnosed Date Hematuria, gross 11/13/2021 Chronic heart failure with preserved ejection fr action 11/12/2018 Cryptogenic stroke 07/06/2018 Status post placement of implantable loop record er 10/13/2017 Overview (10/13/2017): enEvolv Reveal Loop Recorder. Dx; Cryptogenic Stroke. DOI 10/12/[address] Willoughby. [facility] remote monitoring. TIA (transient ischemic attack) 10/06/2017 S/P coronary artery stent placement 12/17/2016 Morbid obesity with BMI of 45.0-49.9, adult ([facility]) 08/13/2016 Mixed anxiety depressive disorder 05/01/2015 Overview (06/07/2016): Anxiety and depression Coronary artery disease of n ative artery of lime heart with stable angina pectoris 02/20/2015 Overview (06/07/2016): Coronary artery disease involving lime coronary artery of lime heart with other form of angina pectoris [...] on file Legal Sex Male 3:15 AM ALPINE GUIDE Gender Identity Male 09/03/2018 6:22 AM [...] to Health Maintenance Insurance [employer] MEDICARE MEDICARE [facility] Care Teams Acidizer Water Well Relationship Specialty Start Date End Date Sandi Alfaro PA PCP - General Nurse Practitioner 08/21/17
--- OUTSIDE RECORDS SUMMARY | 2024-09-10 17:21 | XMS_ITS | Clinical Summary ---
Author Organization [facility] [employer] Address [address] [place] [address] Care Team Providers Care Electronic Prepress Technician Name Role Phone Sandi Alfaro LEATHER BELT LOOP CUTTER-SOLE SEWER HAND Primary Care Provider Source Comments [facility] [employer],non-owned Affiliates and Associated Physician Practices is amultiple site organization consisting of ambulatory clinics and hospital sitesin [place], [place]. This disclosure is being madepursuant to the Care Everywhere program and may not contain all information available regarding this patient. 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 Blood BLOOD SPECIMEN / Unknown Venipuncture / Unknown 05/26/2018 4:21 PM CDT 05/26/2018 4:26 PM CDT Jim Ann MD LAB - HEMATOLOGY ORDERABLES F inal Result Performing Organization Address [facility] Co de Phone Number [address] [phone] * HEPATITIS C AB SCREEN RFLX NAAT QUANT (05/26/2018 4:21 PM CDT) Pathologist [facility] Hepatitis C Antibody Non-react kendell Non-reac tive 05/26/2018 5:13 PM CDT [facility] Comment: Hepatitis C Antibody screen [...] ORDERABLES Fi nal Result Performing Organization Address City/[facility]/ZIP Co de Phone Number [address] [address], [place] [phone] from Last 3 Months or Most Recently Relevant to Health Maintenance Insurance MEDICARE MEDICAID - OUT OF STATE MEDICARE MEDICAID - [place] Advance Directives * Full Code (Latest Code Status on File) Date Activated Date Inactivated Comments 05/26/2018 2:01 PM 05/28/2018 11:56 AM Care Teams Electronic Prepress Technician Relationship Specialty Start Date End Date Sandi Alfaro APRN-SOLE SEWER HAND [address] [place] [id number] PCP - General 08/27/21
--- OUTSIDE RECORDS SUMMARY | 2024-09-10 17:21 | XMS_ITS | Encounter Summary ---
Author Organization [facility] Address [address] [place] [address] Care Team Providers Care Mural Painter Name Role Phone Salo Forrest MD Primary Care Provider +1- [phone] Sandi Alfaro Primary Care Provider + Encounter Details Date Type Department Care Team (Late st Contact Info) Description 08/03/2017 Orders Only [facility] Health Information Management [address] [place] [address] Scanning, Provider Social History Tobacco Use Types Packs/Day Years Used Date Smoking Tobacco: Former Smokeless Tobacco: Never Alcohol Use Standard Drinks/Week Comments Yes 0 (1 standard drink = 0.6 oz pur e alcohol) Sex and Gender Information Value Date Recorded Sex Assigned at Not on file 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 Gender Identity Male 09/03/2018 6:22 AM CDT Sexual Orientation Straight 09/03/2018 6: 22 AM CDT documented as of this encounter Plan of Treatment Not on file documented as of this encounter Procedures Procedure Name Priority Date/Time Associated Diagnosis Comments CARDIOLOGY DOCUMENT SCAN 08/03/2017 documented in this encounter Results * Cardiology Document Scan (08/03/2017) Anatomical Region Laterality Modality Other us Provider Scanning CV CARDIAC SERVICES PROCEDURES Final Result documented in this encounter Visit Diagnoses Not on filedocumented in this encounter Care Teams Mural Painter Relationship Specialty Start Date End Date Salo Forrest MD [address] [place] [address] PCP - General 05/30/16 08/20/17 Sandi Alfaro PA [address] [place] [address] PCP - General Nurse Practitioner 08/21/17 documented as of this encounter
--- NOTE | 2024-09-10 17:25 | ECG_ITS ---
Test Date: 2024-09-10 17:31:18 Measurements Intervals [place] Rate: 84 P: 22 [place]: 172 QRS: 33 QRSD: 159 T: -5 QT: 404 QTc: 478 Interpretive Statements SINUS RHYTHM RIGHT BUNDLE BRANCH BLOCK [120+ ms QRS DURATION, UPRIGHT V1, 40+ ms S IN I/aVL/V4/V5/V6] ABNORMAL ECG Electronically Signed On 09-11-2024 11:33:01 CDT by Husam Raymundo M.D.
[2024-09-10 17:34] VITALS: BP 126/72; PULSE 89; RESP 20; O2SAT 97
[2024-09-10 17:48] LABS: Hematocrit 40.7 % (42.0-52.0); Hemoglobin 13.8 g/dL (14.0-18.0); Immature Granulocyte Percent A 0.3 % (0-0.5); Immature Platelet Fraction Pct 7.0 % (0.9-11.2); Lymphocytes Absolute Auto 1.22 K/mm3 (0.9-3.2); Mean Corpuscular HGB Conc 33.9 g/dl (32-36); Mean Corpuscular Hemoglobin 30.4 pg (26-34); Mean Corpuscular Volume 89.6 fl (80-100); Nucleated Red Blood Cells Absolute Auto 0.000 K/mm3 (0.0-0.012); Nucleated Red Blood Cells Perc 0.0 % (0.0-0.2); Platelet Count Result 138 k/mm3 (150-375); Red Blood Count 4.54 M/mm3 (4.6-6.20); White Blood Count 6.7 K/mm3 (4.5-10.0)
--- OUTSIDE RECORDS SUMMARY | 2024-09-10 17:48 | XMS_ITS | Clinical Summary ---
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 180 tablet 3 08/10/19 24 025 Discontinued Active Problems Problem Noted Date Diagnosed Date Hematuria, gross 11/13/2021 Chronic heart failure with preserved ejection fr action 11/12/2018 Cryptogenic stroke 07/06/2018 Status post placement of implantable loop record er 10/13/2017 Overview (10/13/2017): Medtronic Reveal Loop Recorder. Dx; Cryptogenic Stroke. DOI 10/12/[address] Willoughby. [facility] remote monitoring. 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 02/20/2015 Overview (06/07/2016): Coronary artery disease involving cheesh-na coronary artery of cheesh-na heart with other form of angina pectoris CVA, old, hemiparesis 02/20/2015 Overview (06/07/2016): CVA, old, hemiparesis Mixed diabetic hyperlipidemi a associated with type 2 diabetes mellitus ([facility]) 02/20/2015 Overview (06/07/2016): DM type [...] Department Care Team Description 07/20/2024 Orders Only [facility] Health Information Management [address] [place] [phone] Scanning, Provider 07/12/2024 11:45 AM CDT Office Visit 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 Cardiology [address] [facility] [address] [place] [address] Julio Richardson MD 07/08/2024 Telephone [facility] Cardiology [address] [facility] [address] [place] [phone] Fernando Modi MD 07/08/2024 Orders Only [facility] Cardiology [address] [facility] [address] [place] [address] Julio Richardson MD 06/29/2024 Telephone [facility] Cardiology [address] [facility] [address] [place] [phone] Fernando Modi MD 06/21/2024 Orders Only [facility] Cardiology [address] [facility] [address] [place] [address] Paola Nolen MD 06/13/2024 Orders Only [facility] Health Information Management [address] [place] [phone] Paola Nolen MD from Last 3 [...] on file Legal Sex Male 3:15 AM 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
--- OUTSIDE RECORDS SUMMARY | 2024-09-10 17:48 | XMS_ITS | Encounter Summary ---
Author Organization [facility] Address [address] [place] [address] Care Team Providers Care Oceanic Sciences Professor Name Role Phone Sandi Alfaro Primary Care Provider +1- [phone] Cheryl Huston RN Unavailable Unavailable Encounter Details Date Type Department Care Team (Late st Contact Info) Description 08/27/2022 99Billhart Message Enc [facility] Medical [facility] - [address] [address] [employer]mitchellt, [facility] Provider Air Quality [...] Sex Assigned at Male 03/31/2024 8:58 AM RECREATION SPECIALIST Legal Sex Male 8:01 PM CDT [...] documented as of this encounter Care Teams Oceanic Sciences Professor Relationship Specialty Start Date End Date Sandi Alfaro APNP Family & Internal Medicine [address] [address] PCP - General ADVANCED PRACTICE AUTO CARRIER DRIVER 04/28/17 Cheryl Huston, rn radiation (Ambulatory) REGISTERED NURSE 03/23/19 documented as of this encounter
--- OUTSIDE RECORDS SUMMARY | 2024-09-10 17:48 | XMS_ITS | Encounter Summary ---
Author Organization [facility] Address [address] [place] [address] Care Team Providers Care Activity Manager Name Role Phone Sandi Alfaro Primary Care Provider +1- [phone] Sandi Alfaro Unavailable [phone] Cheryl Huston RN Unavailable Unavailable Encounter Details Date Type Department Care Team (Late st Contact Info) Description 05/13/2021 Polar Message Enc [facility] Medical Group Multispecialty Care - [facility] [address] [place] [address] Eliza, [facility] Provider CPAP Social History Tobacco Use Types Packs/Day Years Used Date Smoking Tobacco: Every Day Cigarettes 0.3 40 Smokeless Tobacco: Never Comments:want to quit but gary s alot of stress right [id number] smoking about 3-4 cigaretts a day Alcohol Use Standard Drinks/Week Comments Yes 0 (1 standard drink = 0.6 oz pur e alcohol) very rarely 6 beers/year PHQ-2 Answer Date Recorded PHQ-2 Score - If the patient scores above 3, please move on to questions 3-9 4 01/23/2021 Sex and Gender Information Value Date Recorded Sex Assigned at Male 03/31/2024 8:58 AM PIPE SMOKING MACHINE OFFBEARER Legal Sex Male 8:01 PM CDT Gender [...] Total Score: 7 01/24/20 21 1:37 PM PIPE SMOKING MACHINE OFFBEARER documented as of this encounter Care Teams Activity Manager Relationship Specialty Start Date End Date Sandi Alfaro APNP Family & Internal Medicine [address] [address] PCP - General ADVANCED PRACTICE FLASH WELDING MACHINE OPERATOR 04/28/17 Sandi Alfaro APNP [address] [place] [address] PCP - Med Group - [facility] Attributed Provider 03/02/15 03/01/22 Cheryl Huston, kettle hand (Ambulatory) REGISTERED NURSE 03/23/19 documented as of this encounter
--- OUTSIDE RECORDS SUMMARY | 2024-09-10 17:48 | XMS_ITS | Clinical Summary ---
Author Organization [facility] Address [facility] [place] [address] Care Team Providers Care Store Receiving Specialist Name Role Phone Sandi Alfaro Primary Care Provider [phone] Cheryl Huston RN Unavailable Unavailable Allergies No known active allergies Medications aspirin 81 MG tablet Take 1 tablet (81 mg total) by mouth daily. 015 Active nitroglycerin 0.[address] 1 tablet (0.4 mg total) under the tongue every 5 (five) minutes as needed for Chest Pain. Active rivaroxaban 2.5 MG tablet Take 1 tablet (2.5 mg total) by mouth 2 (two) times daily. Active atorvastatin 80 MG tablet Take 1 tablet (80 mg total) by mouth daily. Active FLUTICASONE PROPIONATE 50 MCG/ACT nasal sprayIndications: Acute sinusitis SPRAY ONE SPRAY INTO EACH NOSTRIL ONCE DAILY 16 mL 1 Active Additional Information Patient not taking.Reported on 08/30/2024 LORATADINE 10 MG tabletIndications :Seasonal allergic rhinitis due to pollen TAKE 1 TABLET BY MOUTH EVERY DAY 30 tablet 32 Active isosorbide mononitrate ER 60 MG 24 hr tablet Take 2 tablets (120 mg total) by mouth daily. Active montelukast (SINGULAIR) 10 MG tabletIndications :Chronic cough Take 1 tablet (10 mg total) by mouth nightly at bedtime. 90 tablet 3 022 Active Glucose Blood (iSkootUCH VERIO) test stripIndications: Type 2 diabetes mellitus without complication, without long-term current use of insulin ([facility]) USE 1 STRIP BY OTHER ROUTE 2 (TWO) TIMES A DAY. 100 strip Active tamsulosin (FLOMAX) 0.4 MG Cap Take 1 capsule (0.4 mg total) by mouth nightly at bedtime. Active vitamin B-12 (CYANOCOBALAMIN) 1000 MCG tablet Take 1 tablet (1,000 mcg total) by mouth daily. 30 tablet Active Additional Information Patient not taking.Reported on 08/30/2024 traMADol (ULTRAM) 50 MG tabletIndications :Acute Pain [...] ons:Dyslipidemia associated with type 2 diabetes mellitus ([facility]) Inject 3 mg into the skin once a week. 6 mL 11 024 Active meclizine (ANTIVERT) 25 MG tablet TAKE 1 TABLET BY MOUTH THREE TIMES A DAY NEEDED FOR DIZZINES Active losartan (COZAAR) 100 MG tabletIndications :Hypertensive heart disease with congestive heart failure, unspecified heart failure type ([facility]),Primary hypertension TAKE 1 TABLET BY MOUTH EVERY DAY 90 tablet 1 025 Active albuterol sulfate HFA 108 (90 Base) MCG/ACT inhaler INHALE 2 PUFFS EVERY 4 - 6 HOURS NEEDED FOR SHORTNESS OF BREATH OR WHEEZING FOR 30 DAYS 024 Active buPROPion SR (WELLBUTRIN SR) 150 MG [...] MOUTH DAILY. 90 capsule 1 025 Active naloxone (NARCAN) 4 MG/0.1ML nasal sprayIndications: Mixed anxiety depressive disorder 1 spray by Nasal route as needed for Opioid reversal. may repeat every 2 to 3 minutes in alternating nostrils until medical assistance becomes available 1 each 025 2025 Active Additional Information Patient not taking.Reported on 08/30/2024 carvedilol (COREG) 12.5 MG tablet Take 1 tablet (12.5 mg total) by mouth every 12 (twelve) hours. Active clopidogrel (PLAVIX) 75 MG tablet Take 1 tablet (75 mg total) by mouth every morning. Active furosemide (LASIX) 40 MG tablet Take 1 tablet (40 mg total) by mouth daily. Active budesonide-glycop yrrolate-formoter ol (BREZTRI AEROSPHERE) 160-9-4.8 MCG/ACT inhalerIndication s:Pulmonary emphysema, unspecified emphysema type ([facility]) Inhale 2 puffs into the lungs 2 (two) times daily. 10.7 g 5 Active metFORMIN (GLUCOPHAGE) 1000 MG tabletIndications :Diabetic foot ([facility]/HCC) TAKE 1 TABLET BY MOUTH TWICE A DAY 180 tablet Active doxazosin (CARDURA) 2 MG tablet Take 1 tablet (2 mg total) by mouth nightly at bedtime. Active ondansetron (ZOFRAN-ODT) 4 MG disintegrating tabletIndications :Vertigo Take 1 tablet (4 mg total) by mouth every 8 (eight) hours as needed for Nausea. 30 tablet 025 Active ALPRAZolam (XANAX) 0.25 MG tabletIndications :Mixed anxiety depressive disorder,Primary insomnia Take 1 tablet (0.25 mg total) by mouth nightly at bedtime. TAKE 1 TABLET (0.25 MG TOTAL) BY MOUTH AT NIGHT FOR SLEEP Strength: 0.25 mg 30 tablet 025 Active JARDIANCE 10 MG tabletIndications :Type 2 diabetes mellitus without complication, without long-term current use of insulin ([facility]) TAKE 1 TABLET BY MOUTH EVERY DAY 90 tablet 025 Active ondansetron (ZOFRAN-ODT) 4 MG disintegrating tabletIndications :Vertigo Take 1 tablet (4 mg total) by mouth every 8 (eight) hours as needed for Nausea. 30 tablet 025 2024 Discontinued(R eorder) JARDIANCE 10 MG tabletIndications :Type 2 diabetes mellitus without complication, without long-term current use of insulin ([facility]) TAKE 1 TABLET BY MOUTH EVERY DAY 90 tablet 025 2024 Discontinued ALPRAZolam (XANAX) 0.25 MG tabletIndications :Mixed anxiety depressive disorder,Insomnia Take 1 tablet (0.25 mg total) by mouth nightly at bedtime. 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 care registered nurse current use of anticoagulant therapy 0 05/17/2021 Peripheral neuropathy 05/17/2021 Rectal polyp 05/17/2021 Swelling of left lower extremity 05/17/2021 Tear of medial meniscus of knee 05/17/2021 Tobacco abuse 05/17/2021 Pain due to ureteral stent 05/17/2021 Cigarette nicotine dependence without complicati on 03/14/2019 Seasonal allergic rhinitis due to pollen 019 Chronic heart failure with p reserved ejection fraction ([facility]) 11/12/2018 Arthralgia of left hand 11/02/2018 Enchondroma of bone of hand, left 11/02/2018 Carpal tunnel syndrome on left 08/26/2018 Cryptogenic stroke ([facility]) 07/06/2018 Skin lesion of right arm 06/28/2018 Weakness 05/26/2018 Status post placement of implantable loop record er 10/13/2017 Overview (01/13/2018): Overview: [employer] Reve[employer] Loop Recorder. Dx; Cryptogenic Stroke. DOI 10/12/[address] Willoughby. [employer] remote monitoring. TIA (transient ischemic attack) 10/06/2017 Mild emphysema ([facility]) 08/28/2017 Hepatic steatosis 08/28/2017 Memory loss 05/18/2017 Chest pain 04/30/2017 S/P coronary artery stent placement 12/17/2016 Hemorrhoids 10/03/2016 Hearing loss 08/01/2016 Decreased hearing 07/17/2016 Chronic nausea 03/27/2016 Diabetic foot ([facility]) 03/10/2016 Abdominal wall bulge 03/10/2016 CHF (congestive heart failure) ([facility]) 01/14/2016 Peripheral edema 12/19/2015 Tinnitus 11/08/2015 History of kidney stones 10/03/2015 Insomnia 05/07/2015 Chronic cough 03/20/2015 Hypertensive heart disease w ith congestive heart failure ([facility]) 02/20/2015 Overview (01/13/2018): Overview: Hypertensive heart disease with diastolic heart failure 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 02/20/2015 Overview (01/13/2018): Overview: Coronary artery disease involving pamunkey coronary artery of pamunkey heart with other form of angina pectoris CVA, old, hemiparesis ([facility]) 02/21/20 15 Overview (01/13/2018): Overview: CVA, old, hemiparesis Dyslipidemia associated with type 2 diabetes mellitus ([facility]) 02/20/2015 Overview (01/13/2018): Overview: DM (diabetes mellitus) Overview: DM type 2 with diabetic dyslipidemia Mixed diabetic hyperlipidemi a associated with type 2 diabetes mellitus ([facility]) 02/20/2015 Overview (05/17/2021): DM type 2 with [...] Overview: HTN (hypertension), benign Cerebrovascular accident (CVA) ([facility]) 08/23/2013 Hyperlipidemia 08/23/2013 Resolved Problems Problem Noted Date Diagnosed Date Resolved Date Left nephrolithiasis 10/07/2017 018 Encounter for screening for lung cancer 04/09/2017 06/28/2018 BMI 45.0-49.9, adult 10/03/2016 023 Morbid obesity 08/13/2016 05/15/2022 Encounter for preventive health examination 08/23/2013 06/28/2018 Encounters Date Type Department Care Team Description 08/30/2024 12:20 PM CDT Office Visit [facility] [place] [facility] [address] [phone] Sandi Alfaro APNP TCM 08/30/2024 Travel 08/23/2024 Telephone [facility] Medicine [address] [phone] Sandi Alfaro, APNP TCM 08/19/2024 Scan [facility] SRVCS Scanned, [facility] 08/18/2024 Scan [facility] SRVCS Scanned, [facility] Image (SCAN); CT (SCAN); ECG (SCAN); Lab (SCAN) 08/17/[address] [phone] Sandi Alfaro, APNP Vomiting 08/08/[address] [phone] Sandi Alfaro, APNP Refill Request 07/20/2024 Scan [facility] SRVCS Scanned, [facility] Lab (SCAN) 07/19/2024 9:20 AM CDT Office Visit [address] [phone] Sandi Alfaro, APNP Heart Problem 07/19/2024 Travel 07/13/2024 Scan [facility] SRVCS Scanned, [facility] Image (SCAN) 07/13/[address] [phone] Sandi Alfaro, APNP Medication Problem 07/12/2024 Scan [facility] SRVCS Scanned, [facility] Lab (SCAN); Image (SCAN) 07/08/2024 Scan [facility] SRVCS Scanned, [facility] Lab (SCAN) 07/06/[address] [phone] Sandi Alfaro, APNP Medication Request 07/04/2024 Scan [facility] SRVCS Scanned, [facility] Yeast Maker Report (SCAN)* 07/03/2024 Scan [facility]VCS Scanned, [facility] 07/02/2024 Scan [facility] SRVCS Scanned, Doc [facility] 06/30/2024 Telephone [facility] [address] [place] [address] Sandi Alfaro APNP Advice 06/28/2024 Scan [facility] SRVCS Scanned, [facility] Image (SCAN) 06/21/2024 8:40 AM CDT Office Visit [address] [phone] Sandi Alfaro APNP TCM 06/21/2024 Telephone [facility] Internal [address] [phone] Sandi Alfaro APNP Medication Problem 06/21/2024 Travel 06/15/2024 Scan [facility] SRVCS Scanned, [facility] MRI (SCAN); Echo (SCAN) 06/14/2024 Scan HEALTH INFO SRVCS Scanned, Doc Med Group CT (SCAN); Image (SCAN) 06/13/2024 Scan [facility] SRVCS Scanned, [facility] Image (SCAN); Lab (SCAN) from Last 3 Months Immunizations Immunization [...] 02/17/2024 Smokeless Tobacco: Never Tobacco Cessation:Counseling Given: Yes Comments:currently smoking 1-2 cigarettes a day Alcohol Use Standard Drinks/Week Comments Yes 0 (1 standard drink = 0.6 oz pur e alcohol) very rarely 6 beers/year [facility] Utilities Answer Date Recorded In the past 12 months has e [employer], gas, oil, or water [employer] threatened to shut off services in your [...] often do you attend chur ch or yarsani services? 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 Legal Sex Male 8:01 PM CDT Gender Identity Not on file Sexual Orientation Not on file Last Filed Vital Signs Vital Sign Reading Time Taken Comments Blood Pressure 116/58 08/30/2024 12:29 PM CDT Pulse 75 08/30/2024 12:29 PM CDT Temperature 36.3 C (97.4 F) 08/30/2024 12:29 PM CDT Respiratory Rate 16 08/30/2024 12:2 9 PM CDT Oxygen Saturation 96% 08/30/2024 12: 29 PM CDT Inhaled Oxygen Concentration - - Weight 137.8 kg (303 lb 14.4 oz) 2024 12:29 PM CDT Height 182.9 cm (6') 08/30/2024 12:29 PM CDT Body Mass Index 41.22 08/30/2024 12:29 PM CDT Plan of Treatment Health Maintenance Due Date Last Done Comments COVID-19 Vaccine ( season) 2023 12/31/2021, 12/31/2020, 05/11/2020, Additional history exists ASCVD LDL 05/12/2024 05/13/2023, 0410/2021, 08/24/2017, Additional history exists Lipid Panel 05/12/2024 [...] Vaccine: 50+ Years Completed 06/28/2021 PHQ-2 (Physician [place]) Completed 03/31/2024 Meningococcal B Vaccine Aged Out No l onger eligible based on patient's age to complete this topic Meningococcal Vaccine Aged Out No shyam jose eligible based on patient's age to complete this topic RSV Immunizations Under 20 Months Aged Out No longer eligible based on patient's age to complete this topic Procedures Procedure Name Priority Date/Time Associated Diagnosis Comments CT GENERIC 08/18/2024 CT GENERIC 08/18/2024 ECG GENERIC (SCAN ORDER) 08/18/2024 OUTSIDE LAB (SCAN ORDER) 08/18/2024 OUTSIDE LAB (SCAN ORDER) 08/18/2024 OUTSIDE LAB (SCAN ORDER) 08/18/2024 OUTSIDE LAB (SCAN ORDER) 08/18/2024 OUTSIDE LAB (SCAN ORDER) 08/18/2024 IMAGE GENERIC 08/18/2024 IMAGE GENERIC 08/18/2024 OUTSIDE LAB (SCAN ORDER) 07/20/2024 IMAGE GENERIC 07/13/2024 OUTSIDE LAB (SCAN ORDER) 07/12/2024 OUTSIDE LAB (SCAN ORDER) 07/12/2024 OUTSIDE LAB (SCAN ORDER) 07/12/2024 OUTSIDE LAB (SCAN ORDER) 07/12/2024 OUTSIDE PT/INR (SCAN ORDER) 07/12/2024 OUTSIDE LAB (SCAN ORDER) 07/12/2024 IMAGE GENERIC 07/12/2024 OUTSIDE LAB (SCAN ORDER) 07/08/2024 BACK SIZER 07/04/2024 IMAGE GENERIC 06/28/2024 ECHO GENERIC (SCAN ORDER) 06/15/2024 MRI GENERIC 06/15/2024 CT GENERIC 06/14/2024 IMAGE GENERIC 06/14/2024 OUTSIDE LAB (SCAN ORDER) 06/13/2024 OUTSIDE LAB (SCAN ORDER) 06/13/2024 OUTSIDE PT/INR (SCAN ORDER) 06/13/2024 IMAGE GENERIC 06/13/2024 DIABETIC RETINOPATHY EXAM (NEGATIVE)(SCAN ORDER) Routine 04/27/2024 HEMOGLOBIN, GLYCOSYLATED Routine 02/05/2024 Type 2 diabetes [...] to Health Maintenance Results * CT GENERIC (08/18/2024) Only the most recent of3 resultswithin the time period is included. Anatomical Region Laterality Modality Other 08/18/2024 [facility] Scanned SCANNING Final Resu lt * ECG GENERIC (SCAN ORDER) (08/18/2024) 08/18/2024 [employer] [facility] Scanned SCANNING Final Resu lt * OUTSIDE LAB (SCAN ORDER) (08/18/2024) Only the most recent of14 resultswithin the time period is included. 08/18/2024 [employer] [facility] Scanned SCANNING Final Resu lt * IMAGE GENERIC (08/18/2024) Only the most recent of7 resultswithin the time period is included. Anatomical Region Laterality Modality Other 08/18/2024 Result [facility] Scanned SCANNING Final Resu lt * OUTSIDE PT/INR (SCAN ORDER) (07/12/2024) Only the most recent of2 resultswithin the time period is included. 07/12/2024 Result [facility] Scanned SCANNING Final Resu lt * BACK SIZER (07/04/2024) Anatomical Region Laterality Modality Other 07/04/2024 Result [facility] Scanned SCANNING Final Resu lt * MRI GENERIC (06/15/2024) Anatomical Region Laterality Modality Other 06/15/2024 Result [facility] Scanned SCANNING Final Resu lt * ECHO GENERIC (SCAN ORDER) (06/15/2024) Anatomical Region Laterality Modality Other 06/15/2024 Result [facility] Scanned SCANNING Final Resu lt * DIABETIC RETINOPATHY EXAM (NEGATIVE) (04/27/2024) Result [facility] Scanned SCANNING Final Resu lt [facility] * HEMOGLOBIN, GLYCOSYLATED (02/05/2024) HGB A1C 6.5 % [facility] 02/05/2024 Result [facility] Sandi WAGNERNP LABORATORY Final Resul t Performing Organization Address City/[facility]/ZIP Co de Phone Number [facility] [address] [place] [address], [place] * (ABNORMAL) LIPID PANEL (05/13/2023 6:00 AM CDT) CHOLESTEROL 87 <200 MG/DL 05/13/2023 7:18 AM CDT [facility] TRIGLYCERIDES 213(H) <150 MG/DL 05/13/2023 7:18 AM CDT [facility] HDL 24(L) >40.0 MG/DL 05/13/2023 7:18 AM CDT [facility] LDL (CALCULATED) 20 <100 MG/DL 05/13/2023 7:18 AM CDT [facility] NON HDL CHOLESTEROL 63 <130 MG/DL 05/13/2023 7:18 AM CDT [facility] CHOL/HDL RATIO 3.6 0.0 - 4.5 05/13/2023 7:18 AM CDT [facility] VLDL CALCULATION 43 5 - 55 MG/DL 05/13/2023 7:18 AM CDT [facility] LIPID INTERPRETATION 05/13/2023 7:18 AM CDT [facility] Comment: NIH CONCENSUS REPORT RECOMMENDATIONS: ADULT CHILD LOW RISK: CHOLESTEROL <200 <170 TRIGLYCERIDE <150 --- HDL >=60 --- LDL <100 <110 BORDERLINE: CHOLESTEROL 200-239 170-199 TRIGLYCERIDE 150-199 --- HDL 40-59 --- LDL 100-159 110-129 HIGH RISK: CHOLESTEROL >=240 >=200 TRIGLYCERIDE >=200 --- HDL <40 --- LDL >=160 >=130 05/13/2023 6:00 AM CDT us Ayanna Bellamy MD LABORATORY Final Re sult [facility] [address] [place] [address], * HEPATITIS C ANTIBODY W/RFX TO HCV [...] a test for HCV RNA (test code 41463) is suggested. For additional information please refer to http://education.[employer]/faq/XTX91c6 (This link is being provided for informational/ educational purposes only.) 06/28/2021 11:2 2 AM CDT 06/29/2021 10:18 AM CDT Sandi LYNCH LABORATORY Final Resul t [facility] [address] [place] [address] * CT CHEST WO CONT LOW DOSE [...] As above. Thank you for choosing the [facility]'s Lung Screening Program. Referred By: NICK [...] in the left lung base posteriorly. Implanted surveillance monitor device within the left chest subcutaneous [...] As above. Thank you for choosing the [facility]'s Lung ScreeningProgram. Referred By: NICK HENDERSON [...] 11:13 PM 05/01/2017 6:00 PM Care Teams Store Receiving Specialist Relationship Specialty Start Date End Date Sandi Alfaro APNP Family & [place] [address] PCP - General [employer] MONOGRAM TECHNICIAN 04/28/17 Cheryl Huston, anesthesiologist and critical care (Ambulatory) REGISTERED NURSE 03/23/19
--- OUTSIDE RECORDS SUMMARY | 2024-09-10 17:48 | XMS_ITS | Clinical Summary ---
Author Organization [facility] Address [address] [place] [address] Care Team Providers Care Rn Clinical Coordinator Name Role Phone Sandi Alfaro MOLD INJECTOR-CASE MANAGEMENT COORDINATOR Primary Care Provider Source Comments [facility],non-owned Affiliates and Associated Physician Practices is amultiple site organization consisting of ambulatory clinics and hospital sitesin [place], [place], [place] and [place]. This disclosure is being madepursuant to the Care Everywhere program and may not contain all information available regarding this patient. 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 Blood BLOOD SPECIMEN / Unknown Venipuncture / Unknown 05/26/2018 4:21 PM CDT 05/26/2018 4:26 PM CDT Jim Ann MD LAB - HEMATOLOGY ORDERABLES F inal Result Performing Organization Address [facility] Co de Phone Number [address] [phone] * HEPATITIS C AB SCREEN RFLX NAAT QUANT (05/26/2018 4:21 PM CDT) Pathologist [facility] Hepatitis C Antibody Non-react kendell Non-reac tive 05/26/2018 5:13 PM CDT [facility] Comment: Hepatitis C Antibody screen indicates [...] Fi nal Result Performing Organization Address City/[facility]/ZIP Co de Phone Number [address] [address], [place] [phone] from Last 3 Months or Most Recently Relevant to Health Maintenance Insurance MEDICARE MEDICAID - OUT OF STATE MEDICARE MEDICAID - [place] Advance Directives * Full Code (Latest Code Status on File) Date Activated Date Inactivated Comments 05/26/2018 2:01 PM 05/28/2018 11:56 AM Care Teams Rn Clinical Coordinator Relationship Specialty Start Date End Date Sandi Alfaro APRN-CASE MANAGEMENT COORDINATOR [address] [place] [id number] PCP - General 08/27/21
--- OUTSIDE RECORDS SUMMARY | 2024-09-10 17:48 | XMS_ITS | Referral Summary ---
Author Organization [facility] [address] [place] [address] [address] [place] [address] Care Team Providers Care Career And Guidance Counselor Name Role Phone Sandi Alfaro Primary Care Provider + Encounters Date Type Department Care Team Description 07/20/2024 Orders Only [facility] Information Management [address] [place] [address] Scanning, Provider 07/12/2024 11:45 AM CDT Office Visit [facility] Medical [facility] Cardiology [address] [place] [address] Fernando Modi MD Coronary artery disease of newhal[place] artery of [place] heart with stable angina pectoris (Primary Dx); Chronic heart failure with preserved ejection fraction (HCC) 07/11/2024 Telephone [facility] Medical [facility] Cardiology [address] [place] [address] Julio Richardson MD 07/08/2024 Telephone [facility] Medical [facility] Cardiology [address] [place] [address] Fernando Modi MD 07/08/2024 Orders Only [facility] Cardiology [address] [facility] [address] [place] [address] Julio Richardson MD 06/29/2024 Telephone [facility] Medical [facility] Cardiology [address] [place] [address] Fernando Modi MD 06/21/2024 Orders Only [facility] Medical [facility] Cardiology [address] [place] [address] Paola Nolen MD 06/13/2024 Orders Only [facility] Health Information Management [address] [place] [address] Paola Nolen MD from Last 3 Months [...] 24 hr tabletIndicatio ns:Coronary artery disease of newhalen artery of [place] heart with stable angina pectoris TAKE 2 TABLETS BY MOUTH EVERY DAY 180 tablet 1 08/16/19 25 Active isosorbide mononitrate ER (IMDUR) 60 mg 24 hr tabletIndicatio ns:Coronary artery disease of [place] artery of [place] heart with stable angina pectoris TAKE 2 TABLETS BY MOUTH DAILY. 180 tablet 3 08/10/19 24 025 Discontinued Active Problems Problem Noted Date Diagnosed Date Hematuria, gross 11/13/2021 Chronic heart failure with preserved ejection fr action 11/12/2018 Cryptogenic stroke 07/06/2018 Status post placement of implantable loop record er 10/13/2017 Overview (10/13/2017): [facility] Reveal Loop Recorder. Dx; Cryptogenic Stroke. DOI 10/12/[address] Willoughby. [facility] remote monitoring. 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
--- OUTSIDE RECORDS SUMMARY | 2024-09-10 17:48 | XMS_ITS | Encounter Summary ---
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 Legal Sex Male 8:01 PM CDT Gender [...] Rule Out 05/03/2020 05/03/2020 05/03/2020 3:25 PM SUPERINTENDENT PLANT PROTECTION COVID-19 Rule Out 05/12/2023 05/12/2023 05/13/2023 12:01 AM CDT Influenza - Seasonal 05/14/2023 05/14/2023 024 12:32 AM CDT documented as of this encounter Care Teams Lead Quality Technician Relationship Specialty Start Date End Date Sandi Alafro APNP Family & Internal Medicine [address] [address] PCP - General ADVANCED PRACTICE TELEPHONE MAINTAINER 04/28/17 Sandi Alfaro APNP [address] [place] [address] PCP - Med Group - [facility] Attributed Provider 03/02/15 03/01/22 Cheryl Huston, agriculture intern (Ambulatory) REGISTERED NURSE 03/23/19 documented as of this encounter
--- OUTSIDE RECORDS SUMMARY | 2024-09-10 17:48 | XMS_ITS | Encounter Summary ---
Author Organization [facility] Healthcare Address [address] [place] [address] Care Team Providers Care Creative Specialist Name Role Phone Sandi Alfaro Primary Care Provider + Encounter Details Date Type Department Care Team (Late st Contact Info) Description 07/20/2024 Orders Only [facility] Health Information Management [address] [place] [address] Scanning, Provider Social History Tobacco Use Types Packs/Day Years Used Date Smoking Tobacco: Some Days Cigarettes 0.3 15 Smokeless Tobacco: Never Alcohol Use Standard Drinks/Week Comments Yes 0 (1 standard drink = 0.6 oz pur e alcohol) Sex and Gender Information Value Date Recorded Sex Assigned at Not on file Legal Sex Male 3:15 AM GROUND HAND Gender Identity Male 09/03/2018 6:22 AM CDT [...] on filedocumented in this encounter Care Teams Creative Specialist Relationship Specialty Start Date End Date Sandi Alfaro PA PCP - General Nurse Practitioner 08/21/17 documented as of this encounter
--- OUTSIDE RECORDS SUMMARY | 2024-09-10 17:48 | XMS_ITS | Encounter Summary ---
Author Organization [facility] Address [address] [place] [address] Care Team Providers Care General Activities Therapist Name Role Phone Sandi Alfaro Primary Care Provider [phone] Cheryl Huston RN Unavailable Unavailable Encounter Details Date Type Department Care Team (Late st Contact Info) Description 08/18/2023 [employer] Message Enc [facility] Medical Group Multispecialty [facility] - [facility] [address] [facility], [address] [place] [id number] [facility] Provider Results Social History Tobacco Use Types Packs/Day Years Used Date Smoking Tobacco: Every Day Cigarettes 0.3 40 Smokeless Tobacco: Never Comments:currently smoking 2 -3 cigarettes a day Alcohol Use Standard Drinks/Week Comments Yes 0 (1 standard drink = 0.6 oz pur e alcohol) very rarely 6 beers/year [facility] Utilities Answer Date Recorded In the past 12 months has [facility] [employer], gas, oil, or water [employer] threatened to shut off services in your [...] How often do you attend chur or scientology services? Never 05/12/2023 Do you belong to any clubs o r organizations such as mosque groups, unions, fraternal or athletic groups, or [...] Patient Health Questionnaire-2 Score 0 05/21/2023 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
--- OUTSIDE RECORDS SUMMARY | 2024-09-10 17:48 | XMS_ITS | Encounter Summary ---
Author Organization [facility] Healthcare Address [address] [place] [address] Care Team Providers Care Operating Theatre Technician Name Role Phone Salo Forrest MD Primary Care Provider [phone] Sandi Alfaro Primary Care Provider + Encounter Details Date Type Department Care Team (Late st Contact Info) Description 08/03/2017 Orders Only [facility] [place] Information Management [address] [place] [address] Scanning, Provider Social History Tobacco Use Types Packs/Day Years Used Date Smoking Tobacco: Former Smokeless Tobacco: Never Alcohol Use Standard Drinks/Week Comments Yes 0 (1 standard drink = 0.6 oz pur e alcohol) Sex and Gender Information Value Date Recorded Sex Assigned at Not on file Legal Sex Male 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
[2024-09-10 17:59] LABS: Alanine Aminotransferase 40 U/L (6-50); Albumin Level 4.5 g/dL (3.5-5.1); Alkaline Phosphatase 46 U/L (38-126); Anion Gap 13 mmol/L (4-12); Aspartate Amino Transferase 39 U/L (17-59); Bilirubin,Total 1.0 mg/dL (0.2-1.3); Blood Urea Nitrogen 18 mg/dL (9-20); Calcium 9.4 mg/dL (8.4-10.2); Carbon Dioxide 21 mmol/L (22-30); Chloride 103 mmol/L (98-107); Estimated CRCL calculation 84 ml/min; Estimated Glomerular Filt Rate > 60; Glucose 151 mg/dL (65-110); Potassium 4.0 mmol/L (3.4-5.0); Sodium 137 mmol/L (137-145); Total Protein 8.0 g/dL (6.3-8.2)
[2024-09-10 18:11] VITALS: BP 128/73; PULSE 85; RESP 14; O2SAT 99
[2024-09-10 18:27] LABS: Add Urine Microscopic? YES; Appearance Urine Clear (Clear); Glucose Urine UA 3+ mg/dL (Negative); Leukocyte Esterase Ur Negative LEU/UL (Negative); Nitrate Urine Negative (Negative); Specific Grav Ur 1.018 (1.001-1.035)
[2024-09-10] MEDS: diazePAM INJ (*CRX) 10 MG/2 ML SYRINGE 5 MG IV PUSH (19:16)
[2024-09-10] MEDS: LIDOCAINE 5% PATCH 1 PATCH TRANSDERM (19:16)
[2024-09-10] MEDS: ACETAMINOPHEN 500 MG TABLET 1000 MG PO (19:16)
--- NOTE | 2024-09-10 19:38 | ED_ITS ---
HPI - General Adult General Chief complaint: Back Pain/Injury Stated complaint: R. sciatic pain, L. lower back pain Time Seen by Provider: 09/10/24 17:32 History of Present Illness HPI narrative: This is a 64-year-old male presenting ED with chief complaint sciatic pain. Patient was lifting something in his garage when he developed right-sided lower back pain shooting down the back of his leg. He was going to an urgent care to obtain pain medications when he developed sharp left-sided flank pain. He has noted that he has had some pain urination and has a history of kidney stones and is concerned that he has a kidney stone today. He denies fevers chills chest pain difficulty breathing abdominal pain nausea vomiting or diarrhea. He has not taken anything for pain and is requesting Dilaudid. No trauma fevers saddle anesthesia urinary retention or bowel incontinence. Related Data Home Medications ?Medication ?Instructions ?Recorded ?Confirmed ?Last Taken ?Type amlodipine 10 mg tablet 10 mg PO DAILY 01/24/19 08/19/24 08/16/24 History bupropion HCl 150 mg tablet,12 hr 150 mg PO Q12H 01/24/19 09/10/24 08/16/24 History sustained-release (Wellbutrin SR) metformin 1,000 mg tablet 1,000 mg PO BID 01/24/19 09/10/24 08/16/24 History isosorbide mononitrate 60 mg 120 mg PO DAILY 01/09/20 09/10/24 08/16/24 History tablet,extended release 24 hr alprazolam 0.25 mg tablet 0.25 mg PO HS 08/21/21 09/10/24 08/16/24 History aspirin 81 mg chewable tablet 81 mg PO DAILY 09/29/21 09/10/24 08/16/24 History (Children's Aspirin) atorvastatin 80 mg tablet 80 mg PO DAILY 06/13/24 09/10/24 08/16/24 History dulaglutide 3 mg/0.5 mL 3 mg subcut WEEKLY 06/13/24 09/10/24 08/16/24 History subcutaneous pen injector (Trulicity) furosemide 40 mg tablet 40 mg PO DAILY 06/13/24 08/19/24 08/16/24 History budesonide 160 mcg-glycopyr 9 2 inh inhalation BID 06/28/24 09/10/24 08/16/24 History mcg-formot 4.8 mcg/actuation HFA inhaler (Breztri Aerosphere) rivaroxaban 2.5 mg tablet (Xarelto) 2.5 mg PO Q12H 07/12/24 09/10/24 08/16/24 History doxazosin 2 mg tablet 2 mg PO HS 08/19/24 09/10/24 08/16/24 History losartan 100 mg tablet mg 09/10/24 Unknown History Allergies Allergy/AdvReac Type Severity Reaction Status Date / Time No Known Allergies Allergy Unknown Verified 09/10/24 17:37 [facility] Past Medical History Medical History Hypertension Coronary artery disease Stent to the distal circumflex and Left anterior descending in 2014. Left anterior descending stent in 04/2015. COVID Transient ischemic attack Diabetic peripheral neuropathy Peripheral vascular disease Deep venous thrombosis Gastric ulcer Obstructive sleep apnea on CPAP Hyperlipidemia Type 2 diabetes mellitus Gastroesophageal reflux disease Chronic obstructive pulmonary disease Cerebrovascular accident Mild left-sided weakness. Congestive heart failure BMI greater than 40 Chronic anticoagulation Hydronephrosis Psoriasis Depression Fracture of fifth toe, right, closed Kidney stones Pneumonia Myocardial infarction Seasonal allergies Surgical History Surgical History History of coronary artery stent placement History of tonsillectomy History of cholecystectomy History of lithotripsy History of rectal polypectomy History of cardiac catheterization 2 stents Family History Family History Mother Diabetes mellitus Arthritis Kidney stones Coronary artery disease Father Acute myocardial infarction Heart disease Kidney stones Hypertension Coronary artery disease Sibling Coronary artery disease Heart disease Hx of CABG Social History Social History Social History: Surrogate decision maker: Rena Dodd, friend. Code status: Full code. Smoking packs per day: 1 Smoking cigarettes per day: 20.0 Years smoked: 47 Smoking pack-years: 47.00 Smoking status: Former smoker Tobacco type: cigarettes Second hand tobacco smoke exposure: Yes Smoking end date: 02/22/24 Alcohol intake: never Drinks per week: 0 Substance use: never Substance use type: does not use Last use: 10/01/2023 Do You Feel Safe in your Home?: Yes Lack of Transportation: No Lack of Food: Never True Current Housing: I Have Housing Concerned About Future Housing: No Difficulty Paying Gas/Electric Bills: No Difficulty Paying for Meds: No Currently Unemployed: No Education: Decline to Answer Difficulty w/ Childcare or Family Care: No Living arrangements: with roommate(s) Additional living arrangements comments: The patient lives in [place] with a roommate. He has no children. Occupation/Education: other Additional occupation/education comments: Disabled. Spiritual care concerns: No Exam 2 Narrative: APPEARANCE: No apparent distress. Head: atraumatic. EYES: EOMI, NOSE: Atraumatic NECK: Trachea midline RESPIRATORY: No increased rate of breathing clear to auscultation CARDIOVASCULAR: RRR, ABDOMINAL: Obese, soft nontender, no CVA tenderness MUSCULOSKELETAl: No obvious deformities no midline lumbar tenderness, straight leg negative bilaterally, pain improved by lying flat in the bed, legs are neurovascularly intact NEURO: Alert. Moving 4/4 extremities SKIN:: Warm, dry. Normal color PSYCHIATRIC: Normal affect Course Vital Signs Vital signs: Vital Signs Pulse Rate 89 09/10/24 17:34 Respiratory Rate 20 09/10/24 17:34 Blood Pressure 126/72 09/10/24 17:34 Pulse Oximetry 97 09/10/24 17:34 Oxygen Delivery Room Air 09/10/24 17:34 Pulse Rate 85 09/10/24 18:11 Respiratory Rate 14 09/10/24 18:11 Blood Pressure 128/73 09/10/24 18:11 Pulse Oximetry 99 09/10/24 18:11 Oxygen Delivery Room Air 09/10/24 17:34 Medical Decision Making [facility] Narrative Medical decision making narrative: -Course: 64-year-old male presenting with right-sided lower back pain radiating down his leg after a lifting motion. Physical exam is unremarkable. no red flags on HPI. UA negative for infection. CT abdomen pelvis ordered to evaluate for kidney stones. Patient given symptomatic treatment for MSK pain. CT without any emergent findings. No kidney stones. Patient's symptoms improved with pain medication. He will discharged with Tylenol Robaxin. He can follow up with primary care physician for further management. -DDX includes but is not limited to: Muscle strain, lumbar radiculopathy, kidney stone, UTI Vital Signs Vital Signs: Vital Signs Pulse Rate 89 09/10/24 17:34 Respiratory Rate 20 09/10/24 17:34 Blood Pressure 126/72 09/10/24 17:34 Pulse Oximetry 97 09/10/24 17:34 Oxygen Delivery Room Air 09/10/24 17:34 Pulse Rate 85 09/10/24 18:11 Respiratory Rate 14 09/10/24 18:11 Blood Pressure 128/73 09/10/24 18:11 Pulse Oximetry 99 09/10/24 18:11 Oxygen Delivery Room Air 09/10/24 17:34 Lab Data 09/10/24 17:40 09/10/24 17:40 Labs: Lab Results 09/10/24 Range/Units 17:40 WBC 6.7 (4.5-10.0) K/mm3 RBC 4.54 L (4.6-6.20) M/mm3 Hgb 13.8 L (14.0-18.0) g/dL Hct 40.7 L (42.0-52.0) % MCV 89.6 (80-100) fl MCH 30.4 (26-34) pg MCHC 33.9 (32-36) g/dl RDW 13.8 (11.5-14.5) % Plt Count 138 L (150-375) k/mm3 MPV 11.6 H (7.4-10.4) fl Immature Gran % (Auto) 0.3 (0-0.5) % Neut % (Auto) 68.6 (45.5-73.1) % Lymph % (Auto) 18.3 (18.3-44.2) % [place] % (Auto) 10.9 H (2.6-8.5) % Eos % (Auto) 1.6 (0-4.4) % Baso % (Auto) 0.3 (0.2-1.2) % Lymph # (Auto) 1.22 (0.9-3.2) K/mm3 [place] # (Auto) 0.7 H (0.1-0.6) K/mm3 Eos # (Auto) 0.1 (0-0.3) K/mm3 Baso # (Auto) 0.0 (0.0-0.1) K/mm3 Abs Immat Gran (auto) 0.02 (0.00-0.031) K/mm3 Absolute Neuts (auto) 4.6 (1.3-6.7) K/mm3 Absolute Nucleated RBC 0.000 (0.0-0.012) K/mm3 Nucleated RBC % 0.0 (0.0-0.2) % % Immature Plt Fraction 7.0 (0.9-11.2) % Sodium 137 (137-145) mmol/L Potassium 4.0 (3.4-5.0) mmol/L Chloride 103 (98-107) mmol/L Carbon Dioxide 21 L (22-30) mmol/L Anion Gap 13 H (4-12) mmol/L BUN 18 (9-20) mg/dL Creatinine 1.12 (0.7-1.3) mg/dL Estim Creat Clear Calc 84 ml/min Estimated GFR > 60 (59 - ) Glucose 151 H (65-110) mg/dL Calcium 9.4 (8.4-10.2) mg/dL Total Bilirubin 1.0 (0.2-1.3) mg/dL AST 39 (17-59) U/L ALT 40 (6-50) U/L Alkaline Phosphatase 46 (38-126) U/L Total Protein 8.0 (6.3-8.2) g/dL Albumin 4.5 (3.5-5.1) g/dL Urine Color Yellow (Yellow) Urine Appearance Clear (Clear) Urine pH 5.0 (5.0-9.0) Ur Specific Nathalie 1.018 (1.001-1.035) Urine Protein 1+ H (Negative) mg/dL Urine Glucose (UA) 3+ H (Negative) mg/dL Urine Ketones Negative (Negative) mg/dL Ur Blood (Man) Negative (Negative) Urine Nitrate Negative (Negative) Urine Bilirubin Negative (Negative) Urine Urobilinogen 0.2 (<2.0) mg/dL Leukocyte Esterase Rfl Negative (Negative) JAVIER/UL Urine RBC 0-2 (0-2) /hpf Urine WBC 0-5 (0-3) /hpf Ur Squamous Epith Cells None seen (Few) /hpf Urine Bacteria None seen /hpf Urine Casts 3-5 Discharge Plan Discharge Clinical Impression: Sciatica, Acute flank pain Patient Disposition: Home Condition: Stable Instructions: Antibiotic Form, Back Pain (ED) Additional Instructions: Please take Tylenol and Robaxin for your back pain. Please follow-up with your primary care physician as needed. Return if you develop inability to urinate, bowel incontinence weakness your legs or severe pain. Patient Language: Dominican Prescriptions: New acetaminophen 500 mg tablet 1,000 mg PO TID PRN (Reason: matt) 7 Days Qty: 42 0RF methocarbamol 750 mg tablet 1,500 mg PO TID Qty: 42 0RF No Action Breztri Aerosphere 160-9-4.8 mcg/actuation HFA aerosol inhaler 2 inh INHALATION BID losartan 100 mg tablet isosorbide mononitrate 60 mg tablet extended release 24 hr 120 mg PO DAILY aspirin [Children's Aspirin] 81 mg tablet,chewable 81 mg PO DAILY carvedilol [Coreg] 12.5 mg Tablet 12.5 mg PO Q12HR Qty: 60 0RF nitroglycerin [Nitrostat] 0.4 mg Tablet, Sublingual 0.4 mg sublingual Q5MIN PRN (Reason: Chest Pain) Qty: 26 0RF omeprazole 40 mg capsule,delayed release(DR/EC) 40 mg PO DAILY Qty: 30 0RF tamsulosin 0.4 mg capsule 0.4 mg PO HS Qty: 30 0RF Jardiance 10 mg tablet 10 mg PO DAILY Qty: 30 0RF atorvastatin 80 mg tablet 80 mg PO DAILY Trulicity 3 mg/0.5 mL pen injector 3 mg SUBCUT WEEKLY Patient Comments: TAKES ON Tuesdays furosemide 40 mg tablet 40 mg PO DAILY clopidogrel 75 mg Tablet 75 mg PO QAM Qty: 30 0RF Entresto 24-26 mg Tablet 1 tab PO Q12HR Qty: 30 0RF doxazosin 2 mg tablet 2 mg PO HS bupropion HCl [Wellbutrin SR] 150 mg tablet sustained-release 12 hr 150 mg PO Q12H amlodipine 10 mg tablet 10 mg PO DAILY metformin 1,000 mg tablet 1,000 mg PO BID alprazolam 0.25 mg tablet 0.25 mg PO HS Rx Instructions: at bedtime rivaroxaban [Xarelto] 2.5 mg tablet 2.5 mg PO Q12H Follow-up/Referrals: Angelina,JOVITA Junior [Primary Care Provider] -
[2024-09-10] MEDS: HYDROmorphone HCL INJ (*CRX) 2 MG/ML VIAL 0.5 MG IV PUSH (20:10)
== END 2024-09-10 20:31 | disposition home or self-care (01) ==
PROVIDERS: Emergency Provider Emergency Medicine; PCP Registered Nurse
DX: M54.41 Lumbago with sciatica, right side (principal); I25.10 Atherosclerotic heart disease of native coronary artery without angina pectoris; I50.9 Heart failure, unspecified; I69.954 Hemiplegia and hemiparesis following unspecified cerebrovascular disease affecting left non-dominant side; I25.2 Old myocardial infarction; E11.42 Type 2 diabetes mellitus with diabetic polyneuropathy; E11.51 Type 2 diabetes mellitus with diabetic peripheral angiopathy without gangrene; I73.9 Peripheral vascular disease, unspecified; E78.5 Hyperlipidemia, unspecified; J44.9 Chronic obstructive pulmonary disease, unspecified; G47.33 Obstructive sleep apnea (adult) (pediatric); K21.9 Gastro-esophageal reflux disease without esophagitis; L40.9 Psoriasis, unspecified; F32.A Depression, unspecified; Z95.5 Presence of coronary angioplasty implant and graft; Z86.16 Personal history of COVID-19; Z87.442 Personal history of urinary calculi; Z87.01 Personal history of pneumonia (recurrent); Z87.891 Personal history of nicotine dependence; Z86.0100 Personal history of colon polyps, unspecified; Z90.49 Acquired absence of other specified parts of digestive tract; Z79.899 Other long term (current) drug therapy; Z79.84 Long term (current) use of oral hypoglycemic drugs; Z79.85 Long-term (current) use of injectable non-insulin antidiabetic drugs; Z79.02 Long term (current) use of antithrombotics/antiplatelets; Z79.01 Long term (current) use of anticoagulants; I45.10 Unspecified right bundle-branch block
CPT/HCPCS: 36415; 74176; 80053; 81001; 85025; 85055; 93005; 96374; 96375; 99284; A9270; J1171; J3360

== ENCOUNTER 2024-09-28 15:43 | Outpatient (CLI) | payer MEDICARE, MEDICAID, SELFPAY ==
--- OUTSIDE RECORDS SUMMARY | 2024-09-28 15:48 | XMS_ITS | Encounter Summary ---
Author Organization [facility] Healthcare Address [address] [place] [address] Care Team Providers Care Production Operations Engineer Name Role Phone Sandi Alfaro Primary Care Provider + Encounter Details Date Type Department Care Team (Late st Contact Info) Description 12/25/2023 Orders Only [facility] Information Management [address] [place] [address] Scanning, Provider Social History Tobacco Use Types Packs/Day Years Used Date Smoking Tobacco: Some Days Cigarettes 0.3 15 Smokeless Tobacco: Never Alcohol Use Standard Drinks/Week Comments Yes 0 (1 standard drink = 0.6 oz pur e alcohol) Sex and Gender Information Value Date Recorded Sex Assigned at Not on file Legal Sex Male 3:15 AM ORGANIZATIONAL 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 CONSULTANT Gender Identity Male 09/03/2018 6:22 AM CDT Sexual Orientation Straight 09/03/2018 6: 22 AM CDT documented as of this encounter Plan of Treatment Not on file documented as of this encounter Procedures Procedure Name Priority Date/Time Associated Diagnosis Comments SCAN - RADIOLOGY/IMAGING 12/24/2023 documented in this encounter Results * SCAN - RADIOLOGY/IMAGING (12/24/2023) Anatomical Region Laterality Modality Other us Provider Scanning Edited Result - Final documented in this encounter Visit Diagnoses Not on filedocumented in this encounter Care Teams Production Operations Engineer Relationship Specialty Start Date End Date Sandi Alfaro PA PCP - General Nurse Practitioner 08/21/17 documented as of this encounter
--- OUTSIDE RECORDS SUMMARY | 2024-09-28 15:48 | XMS_ITS | Encounter Summary ---
Author Organization [facility] Healthcare Address [address] [place] [address] Care Team Providers Care Enameler Name Role Phone Sandi Alfaro Primary Care Provider + Encounter Details Date Type Department Care Team (Late st Contact Info) Description 07/20/2024 Orders Only [facility] Health Information Management [address] [place] [address] Scanning, Provider Social History Tobacco Use Types Packs/Day Years Used Date Smoking Tobacco: Some Days Cigarettes 0.3 15 Smokeless Tobacco: Never Alcohol Use Standard Drinks/Week Comments Yes 0 (1 standard drink = 0.6 oz pur e alcohol) Sex and Gender Information Value Date Recorded Sex Assigned at Not on file 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
--- OUTSIDE RECORDS SUMMARY | 2024-09-28 15:48 | XMS_ITS | Clinical Summary ---
Author Organization [facility] Address [address] [place] [address] Care Team Providers Care Loom Cleaner Name Role Phone Sandi Alfaro VERIFICATION SPECIALIST-BORING AND FILLING MACHINE OPERATOR Primary Care Provider Source Comments [facility],non-owned Affiliates and Associated Physician Practices is amultiple site organization consisting of ambulatory clinics and hospital sitesin [place], [place], [place] and [place]. This disclosure is being madepursuant to the Care Everywhere program and may not contain all information available regarding this patient. Last updated 17.[facility] Allergies No known active allergies Medications * [...] on file Legal Sex Male 5:35 PM REGULATORY COMPLIANCE ENGINEER Gender Identity Not on file Sexual Orientation [...] 05/26/2018 5:12 PM CDT [facility] Comment: Neither HIV-1 p24 Antigen nor HIV-1/HIV-2 Antibodies are detected. Blood BLOOD SPECIMEN / Unknown Venipuncture / Unknown 05/26/2018 4:21 PM CDT 05/26/2018 4:26 PM CDT Jim Ann MD LAB - HEMATOLOGY ORDERABLES F inal Result Performing Organization Address [facility] Co de Phone Number [address] [phone] * HEPATITIS C AB SCREEN RFLX NAAT [...] Fi nal Result Performing Organization Address City/[facility]/ZIP Co de Phone Number [address] [address], [place] [phone] from Last 3 Months or Most Recently Relevant to Health Maintenance Insurance MEDICARE MEDICAID - OUT OF STATE MEDICARE [place]ICAID - [place] Advance Directives * Full Code (Latest Code Status on File) Date Activated Date Inactivated Comments 05/26/2018 2:01 PM 05/28/2018 11:56 AM Care Teams Loom Cleaner Relationship Specialty Start Date End Date Sandi Alfaro APRN-BORING AND FILLING MACHINE OPERATOR [address] [place] [address] PCP - General 08/27/21
--- OUTSIDE RECORDS SUMMARY | 2024-09-28 15:48 | XMS_ITS | Clinical Summary ---
Author Organization [facility] [address] Address [address] [place] [address] Care Team Providers Care Veneer Jointer Returner Name Role Phone Sandi Alfaro Primary Care [...] 1.5 mg/0.5 mL pen injector 8 Active albuterol HFA (PROVENTIL HFA,VENTOLIN HFA,PROAIR HFA) [...] chest pain 75 tablet 3 3 Active Xarelto 2.5 mg tablet TAKE 1 [...] 07/02/19 26 Active clopidogreL (PLAVIX) 75 mg tabletIndication s:Thrombosis Prevention after PCI Take 1 tablet (75 mg total) by mouth daily 90 tablet 2 5 03/28/19 26 Active isosorbide mononitrate ER (IMDUR) 60 mg 24 hr tabletIndication s:Coronary artery disease of [place] artery of [place] heart with stable angina pectoris TAKE 2 TABLETS BY MOUTH EVERY DAY 180 tablet 1 5 Active Active Problems Problem Noted Date Diagnosed Date Hematuria, gross 11/13/2021 Chronic heart failure with preserved ejection fr action 11/12/2018 Cryptogenic stroke 07/06/2018 Status post placement of implantable loop record er 10/13/2017 Overview (10/13/2017): [employer] Reveal Loop Recorder. Dx; Cryptogenic Stroke. DOI 10/12/[address] Willoughby. [facility] remote monitoring. TIA (transient ischemic attack) 10/06/2017 S/P coronary artery stent placement 12/17/2016 Morbid obesity with BMI of 45.0-49.9, adult ([facility]) 08/13/2016 Mixed anxiety depressive disorder 05/01/2015 Overview (06/07/2016): Anxiety and depression Coronary artery disease of n ative artery of [place] heart with stable angina pectoris 02/20/2015 Overview (06/07/2016): Coronary artery disease involving [place] coronary artery of [place] heart with other form of angina pectoris CVA, old, hemiparesis 02/20/2015 Overview (06/07/2016): CVA, old, hemiparesis Mixed diabetic hyperlipidemi a associated with type 2 diabetes mellitus ([facility]) 02/20/2015 Overview (06/07/2016): DM type 2 with diabetic dyslipidemia Hypertensive heart disease with congestive heart failure 02/20/2015 Overview (06/07/2016): Hypertensive heart disease with diastolic heart failure TAMIR on CPAP 10/17/2014 Overview (06/07/2016): TAMIR on CPAP Diabetes mellitus 10/17/2014 Overview (06/07/2016): DM (diabetes mellitus) Hypertension associated with diabetes 10/17/2014 Overview (06/07/2016): HTN (hypertension), benign Encounters Date Type Department Care Team Description 07/20/[address] [facility] Health Information Management [address] [place] [address] Scanning, Provider 07/12/2024 11:45 AM CDT Office Visit [facility] Cardiology [address] [place] [address] Fernando Modi MD Coronary artery disease of [place] artery of [place] heart with stable angina pectoris (Primary Dx); Chronic heart failure with preserved ejection fraction (HCC) 07/11/2024 Telephone [facility] Cardiology [address] [place] [address] Julio Richardson MD 07/08/[address] [facility] Medical [facility] Cardiology [address] [place] [address] Fernando Modi MD 07/08/[address] [facility] Medical [facility] Cardiology [address] [place] [address] Julio Richardson MD 06/29/2024 Telephone [facility] Cardiology [address] [place] [address] Fernando Modi MD from Last 3 Months Surgical History [...] on file Legal Sex Male 3:15 AM BLEACHER PULP Gender Identity Male 09/03/2018 6:22 AM CDT [...] 2009 Hemoglobin A1C 11/26/2018 05/26/2018 Covid-19 Vaccine ( - 2023-2 5 season) 2023 12/31/2020, 05/11/2020, [...] DOCUMENT SCAN Routine 07/05/2024 12:37 PM CDT LIPID PANEL Routine 10/20/2023 from Last 3 Months or Most Recently Relevant to Health Maintenance Results * SCAN - LABS (07/20/2024) us Provider Scanning Final Result * Cardiology Document Scan (07/05/2024 12:37 PM CDT) Anatomical Region Laterality Modality Other [facility] Cricket Richardson MD CV CARDIAC SERVICES PRO CEDURES Final Result * (ABNORMAL) Lipid panel (10/20/2023) [...] Most Recently Relevant to Health Maintenance Insurance [facility] MEDICARE MEDICARE [facility] Address: [address] [address] [place] [address] [facility] Care Teams Veneer Jointer Returner Relationship Specialty Start Date End Date Sandi Alfaro PA PCP - General Nurse Practitioner 08/21/17
--- OUTSIDE RECORDS SUMMARY | 2024-09-28 15:48 | XMS_ITS | Encounter Summary ---
Author Organization [facility] Healthcare Address [address] [place] [address] Care Team Providers Care Autocad Name Role Phone Salo Forrest MD Primary Care Provider [phone]- [phone] Sandi Alfaro Primary Care Provider + Encounter Details Date Type Department Care Team (Late st Contact Info) Description 08/03/2017 Orders Only [facility] Health Information Management [address] [place] [address] Scanning, Provider Social History Tobacco Use Types Packs/Day Years Used Date Smoking Tobacco: Former Smokeless Tobacco: Never Alcohol Use Standard Drinks/Week Comments Yes 0 (1 standard drink = 0.6 oz pur e alcohol) Sex and Gender Information Value Date Recorded Sex Assigned at Not on file 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
--- OUTSIDE RECORDS SUMMARY | 2024-09-28 15:48 | XMS_ITS | Referral Summary ---
Author Organization [address] Address [address] [place] [address] Care Team Providers Care Broker Name Role Phone Sandi Alfaro Primary Care Provider + Encounters Date Type Department Care Team Description 07/20/2024 Orders Only [facility] Health Information Management [address] [place] [address] Scanning, Provider 07/12/2024 11:45 AM CDT Office Visit [facility] Medical [facility] Cardiology [address] [facility] [address] [facility] [address] [place] [address] Fernando oMdi MD 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 (Primary Dx); Chronic heart failure with preserved ejection fraction (HCC) 07/11/2024 Telephone [facility] Cardiology [address] [place] [address] [address] [place] [address] Julio Richardson MD 07/08/2024 Telephone [facility] Cardiology [address] [place] [address] [address] [place] [address] Fernando Modi MD 07/08/2024 Orders Only [facility] Cardiology [address] [place] [address] [address] [place] [address] Julio Richardson MD 06/29/2024 Telephone [facility] Cardiology [address] [place] [address] [address] [place] [address] Fernando Modi MD from Last 3 Months Allergies No [...] of grindstone heart with stable angina pectoris TAKE 2 TABLETS BY MOUTH EVERY DAY 180 tablet 1 5 Active Active Problems Problem Noted Date Diagnosed Date Hematuria, gross 11/13/2021 Chronic heart failure with preserved ejection fr action 11/12/2018 Cryptogenic stroke 07/06/2018 Status post placement of implantable loop record er 10/13/2017 Overview (10/13/2017): [employer] Reveal Loop Recorder. Dx; Cryptogenic Stroke. DOI 10/12/[address] Willoughby. [facility] monitoring. 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
[2024-09-28 17:56] LABS: Iron 79 ug/dL (49-181)
[2024-09-28 18:05] LABS: Percent Iron Saturation 18 % (20-50)
[2024-09-28 18:08] LABS: INR 1.2; Prothrombin Time 15.0 Seconds (11.1-14.7)
[2024-09-28 18:28] LABS: Hepatitis B Surface Antigen Negative (Negative)
[2024-09-28 18:32] LABS: Ferritin 14.90 ng/mL (11.1-264)
[2024-09-28 18:35] LABS: HAV RESULT Negative (Negative); Hepatitis B Core IgM Result Negative (Negative)
[2024-10-01 10:08] LABS: Deamidated Gliadin Abs, IgA 22 units (0-19); Deamidated Gliadin Abs, IgG 11 units (0-19); Immunoglobulin A, Qn 174 mg/dL (61-437)
[2024-10-03 07:07] LABS: ANA by IFA Rfx Titer/Pattern Negative (.)
[2024-10-12 15:09] LABS: Anti-Mitochondrial Ab by IFA <1:20 (<1:20)
== END 2024-09-28 15:44 | disposition home or self-care (01) ==
PROVIDERS: PCP Registered Nurse; Visit Provider Nurse Practitioner Family
DX: R16.0 Hepatomegaly, not elsewhere classified (principal); D69.6 Thrombocytopenia, unspecified; D64.9 Anemia, unspecified
CPT/HCPCS: 36415; 80074; 82103; 82104; 82105; 82390; 82728; 82784; 83540; 83550; 85610; 86015; 86038; 86231; 86258; 86376; 86381

== ENCOUNTER 2024-10-16 15:04 | Inpatient (IN) | payer MEDICARE, MEDICAID, SELFPAY ==
[2024-10-16] VITALS (11 sets, daily range): BP systolic 100–146; BP diastolic 67–89; PULSE 75–84; RESP 16–20; TEMP 36.3–36.6; O2SAT 96–98; BMI 36.5
--- NOTE | ~2024-10-16 | XR_ITS ---
CHEST RADIOGRAPH, PA AND LATERAL CLINICAL HISTORY: cp . COMPARISON: S TECHNIQUE: PA and lateral views of the chest. FINDINGS A loop recorder is identified to the left of midline. The remainder of the cardiomediastinal silhouette is otherwise unremarkable. Moderate left-sided pleural effusion. The remainder of the lungs are clear. IMPRESSION: Moderate left-sided pleural effusion without focal infiltrate identified. Reviewed, dictated and finalized at location A.
--- NOTE | 2024-10-16 15:05 | ECG_ITS ---
Test Date: 2024-10-16 15:15:49 Measurements Intervals [place] Rate: 74 P: -19 TN: 167 QRS: 1 QRSD: 157 T: -25 QT: 406 QTc: 453 Interpretive Statements SINUS RHYTHM RIGHT BUNDLE BRANCH BLOCK INFERIOR INFARCT, AGE INDETERMINATE ABNORMAL ECG Compared to ECG 09/10/2024 17:31:18 No significant changes Electronically Signed On 10-16-2024 20:18:42 CDT by Mathew Landon D.O.
--- OUTSIDE RECORDS SUMMARY | 2024-10-16 15:06 | XMS_ITS | Encounter Summary ---
Author Organization [facility] Healthcare Address [address] [place] [address] Care Team Providers Care Experimental Assembler Name Role Phone Salo Forrest MD Primary Care Provider +- [phone] Sandi Alfaro Primary Care Provider + Encounter Details Date Type Department Care Team (Late st Contact Info) Description 05/11/2017 Orders Only [facility] Health Information Management [address] [place] [address] Scanning, Provider Social History Tobacco Use Types Packs/Day Years Used Date Smoking Tobacco: Former Smokeless Tobacco: Never Alcohol Use Standard Drinks/Week Comments Yes 0 (1 standard drink = 0.6 oz pur e alcohol) Sex and Gender Information Value Date Recorded Sex Assigned at Not on file 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 Gender Identity Male 09/03/2018 6:22 AM CDT Sexual Orientation Straight 09/03/2018 6: 22 AM CDT documented as of this encounter Plan of Treatment Not on file documented as of this encounter Procedures Procedure Name Priority Date/Time Associated Diagnosis Comments SCAN - LABS 05/11/2017 documented in this encounter Results * SCAN - LABS (05/11/2017) us Provider Scanning Final Result documented in this encounter Visit Diagnoses Not on filedocumented in this encounter Care Teams Experimental Assembler Relationship Specialty Start Date End Date Salo Forrest MD [address] [place] [address] PCP - General 05/30/16 08/20/17 Sandi Alfaro PA [address] [place] [address] PCP - General Nurse Practitioner 08/21/17 documented as of this encounter
--- OUTSIDE RECORDS SUMMARY | 2024-10-16 15:06 | XMS_ITS | Encounter Summary ---
Author Organization [facility] Address [address] [place] [address] Care Team Providers Care In Home Sales Consultant Name Role Phone Sandi Alfaro Primary Care Provider [phone]- [phone] Sandi Alfaro Unavailable [phone] Cheryl Huston RN Unavailable Unavailable Encounter Details Date Type Department Care Team (Late st Contact Info) Description 05/13/2021 [employer] Message Enc [facility] Medical Group Multispecialty Care - [facility] [address] [place] [address] Eliza, [facility] Provider CPAP Social History Tobacco Use Types Packs/Day Years Used Date Smoking Tobacco: Every Day Cigarettes 0.3 40 Smokeless Tobacco: Never Comments:want to quit but gary s alot of stress right [id number] smoking about 3-4 cigaretts a day Alcohol Use Standard Drinks/Week Comments Yes 0 (1 standard drink = 0.6 oz pur e alcohol) very rarely 6 beers/year PHQ-2 Answer Date Recorded PHQ-2 Score - If the patient scores above 3, please move on to questions 3-9 4 01/23/2021 Sex and Gender Information Value Date Recorded Sex Assigned at Male 03/31/2024 8:58 AM ADVERTISING DIRECTOR Legal Sex Male 8:01 PM CDT [...] Seasonal 05/14/2023 05/14/2023 024 12:32 AM CDT Respiratory Rule Out 09/19/2024 09/19/2024 025 5:40 PM CDT Assessment Noted Time PHQ-9 Depression Total Score: 7 01/24/20 21 1:37 PM ADVERTISING DIRECTOR documented as of this encounter Care Teams In Home Sales Consultant Relationship Specialty Start Date End Date Sandi Alfaro APNP Family & Internal Medicine [address] [address] PCP - General ADVANCED PRACTICE ADJUSTMENT CLERK 04/28/17 Sandi Alfaro APNP [address] [place] [address] PCP - Med Group - MSSP Attributed Provider 03/02/15 03/01/22 Cheryl Huston arborist representative (Ambulatory) REGISTERED NURSE 03/23/19 documented as of this encounter
--- OUTSIDE RECORDS SUMMARY | 2024-10-16 15:06 | XMS_ITS | Encounter Summary ---
Author Organization [facility] Healthcare Address [address] [place] [address] Care Team Providers Care Ob Nurse Name Role Phone Sandi Alfaro Primary Care Provider + Encounter Details Date Type Department Care Team (Late st Contact Info) Description 10/14/2024 Telephone [facility] Medical Group Cardiology [address] [place] [address] Fernando Modi MD [address] [place], [place] [id number] Social History Tobacco Use Types Packs/Day Years Used Date Smoking Tobacco: Some Days Cigarettes 0.3 15 Smokeless Tobacco: Never Alcohol Use Standard Drinks/Week Comments Yes 0 (1 standard drink = 0.6 oz pur e alcohol) Sex and Gender Information Value Date Recorded Sex Assigned at Not on file 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 Please send to [facility] in [facility] in [place].Thank you. Contact: documented in this encounter Plan of Treatment Not on file documented as of this encounter Visit Diagnoses Not on filedocumented in this encounter Care Teams Ob Nurse Relationship Specialty Start Date End Date Sandi Alfaro PA PCP - General Nurse Practitioner 08/21/17 documented as of this encounter
--- OUTSIDE RECORDS SUMMARY | 2024-10-16 15:06 | XMS_ITS | Clinical Summary ---
Author Organization [facility] [address] Address [address] [place] [address] Care Team Providers Care Manager Market Research Name Role Phone Sandi Alfaro Primary Care [...] 24 hr tabletIndication s:Coronary artery disease of [place] artery of [place] heart with stable angina pectoris TAKE 2 TABLETS BY MOUTH EVERY DAY 180 tablet 1 5 Active Active Problems Problem Noted Date Diagnosed Date Hematuria, gross 11/13/2021 Chronic heart failure with preserved ejection fr action 11/12/2018 Cryptogenic stroke 07/06/2018 Status post placement of implantable loop record er 10/13/2017 Overview (10/13/2017): [employer] Reveal Loop Recorder. Dx; Cryptogenic Stroke. DOI 10/12/[address] Willoughby. [facility] remote monitoring. TIA (transient ischemic attack) 10/06/2017 S/P coronary artery stent placement 12/17/2016 Morbid obesity with BMI of 45.0-49.9, adult ([facility]) 08/13/2016 Mixed anxiety depressive disorder 05/01/2015 Overview (06/07/2016): Anxiety and depression Coronary artery disease of n ative artery of [place] heart with stable angina pectoris 02/20/2015 Overview (06/07/2016): Coronary artery disease involving [place] coronary artery of [place] heart with other form of angina pectoris CVA, old, hemiparesis 02/20/2015 Overview (06/07/2016): CVA, old, hemiparesis Mixed diabetic hyperlipidemi a associated with type 2 diabetes mellitus (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 Gender Identity Male 09/03/2018 6:22 AM CDT [...] Visit 65+ 2024 Lipid Panel 10/19/2024 10/20/2023, /05/2023, 07/01/2022, Additional history exists Influenza Vaccine (#1) 2024 , 12/23/2022, 12/31/2021, Additional history exists DTaP/Tdap/Td Vaccine (3 - Td or Tdap) 02/25/2026 02/26/2016, 11/22/2014 Procedures Procedure Name Priority Date/Time Associated Diagnosis Comments SCAN - LABS 07/20/2024 LIPID PANEL Routine 10/20/2023 from Last 3 Months or Most Recently Relevant to Health Maintenance Results * SCAN - LABS (07/20/2024) us Provider Scanning Final Result * (ABNORMAL) Lipid panel (10/20/2023) SCRIBED Cholesterol, Total 87 < - 200 EXTERNAL LAB SCRIBED HDL 24 > - 40 EXTERNAL LAB SCRIBED LDL 20 < - 100 EXTERNAL LAB SCRIBED Triglycerides 213(A) < - 150 EXTERNAL LAB Blood 10/20/2023 [facility] Provider LAB BLOOD ORDERABLES Elida l Result EXTERNAL LAB from Last 3 Months or Most Recently Relevant to Health Maintenance Insurance [employer] MEDICARE MEDICARE [facility] Care Teams Manager Market Research Relationship Specialty Start Date End Date Sandi Alfaro PA PCP - General Nurse Practitioner 08/21/17
--- OUTSIDE RECORDS SUMMARY | 2024-10-16 15:06 | XMS_ITS ---
Author Organization [facility] Address [address] [place], [place] [id number] Care Team Providers Care Director Presales Name Role Phone PIETER WALSH Unavailable [phone] Sandi Alfaro Unavailable Unavailable REASON FOR VISIT dropped rolling pin on right foot. - canc. by pt., in hospital Encounters Encounter Location Date Provider Diagnosis [facility] [place] [address] [facility] [address] [place], [place] [id number] 07/04/2024 PIETER WALSH Plan Of Treatment Next Appt Details Provider Name:PIETER WALSH, 08:00:00 AM, [address], [place], [place], [id number], Progress Notes * KLAUDIA HALEY BDOB:[birth year] (64 yo M)Acc No.[id number]:07/04/2024 Patient: Trina BISHOP KLAUDIA Marin Provider: Kristal Walsh DPM :1960 A ge:64 Y S ex:Male Date:07/04/2024 Address:[address], [place] Subjective: * Chief Complaints: * 1 . Dropped rolling pin on right foot. - canc. by pt., in hospital. * Medical History: Objective: * Vitals: Assessment: Plan: * Treatment: * Billing Information: * Visit Code: * Procedure Codes: * Electronic signature of PIETER WALSH DPM on 10/16/2024 at 03:06 PM CDT Sign off status: Pending * Provider: Kristal Walsh DPM Date: 0 07/04/2024 Generated for Michelle Drummond/Nimseh on: 0 10/16/2024 03:06 PM CDT
--- OUTSIDE RECORDS SUMMARY | 2024-10-16 15:06 | XMS_ITS | Clinical Summary ---
Author Organization [facility] [employer] Address [address] [place] [address] Care Team Providers Care Front Office Medical Assistant Name Role Phone Sandi Alfaro SOLE ROUNDER-ROTARY DRYER OPERATOR Primary Care Provider Source Comments [facility] [employer],non-owned Affiliates and Associated Physician Practices is amultiple site organization consisting of ambulatory clinics and hospital sitesin [place] and [place]. This disclosure is being madepursuant to the Care Everywhere program and may not contain all information available regarding this patient. 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 Blood BLOOD SPECIMEN / Unknown Venipuncture / Unknown 05/26/2018 4:21 PM CDT 05/26/2018 4:26 PM CDT Jim Ann MD LAB - HEMATOLOGY ORDERABLES F inal Result Performing Organization Address [facility] Co de Phone Number [address] [phone] * HEPATITIS C AB SCREEN RFLX NAAT QUANT (05/26/2018 4:21 PM CDT) Pathologist [facility] Hepatitis C Antibody Non-react kendell Non-reac tive 05/26/2018 5:13 PM CDT [facility] Comment: Hepatitis C Antibody screen indicates [...] Fi nal Result Performing Organization Address City/[facility]/ZIP Co de Phone Number [address] [address], [place] [phone] from Last 3 Months or Most Recently Relevant to Health Maintenance Insurance MEDICARE MEDICAID - OUT OF STATE MEDICARE [place]ID [place] Advance Directives * Full Code (Latest Code Status on File) Date Activated Date Inactivated Comments 05/26/2018 2:01 PM 05/28/2018 11:56 AM Care Teams Front Office Medical Assistant Relationship Specialty Start Date End Date Sandi Alfaro APRN-ROTARY DRYER OPERATOR [address] [place] [address] PCP - General 08/27/21
--- OUTSIDE RECORDS SUMMARY | 2024-10-16 15:06 | XMS_ITS | Encounter Summary ---
Author Organization [facility] Healthcare Address [address] [place] [address] Care Team Providers Care Trademark Affixer Name Role Phone Sandi Alfaro Primary Care Provider + Encounter Details Date Type Department Care Team (Late st Contact Info) Description 07/20/2024 Orders Only [facility] [place] Information Management [address] [place] [address] Scanning, Provider Social History Tobacco Use Types Packs/Day Years Used Date Smoking Tobacco: Some Days Cigarettes 0.3 15 Smokeless Tobacco: Never Alcohol Use Standard Drinks/Week Comments Yes 0 (1 standard drink = 0.6 oz pur e alcohol) Sex and Gender Information Value Date Recorded Sex Assigned at Not on file Legal Sex Male 3:15 AM 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
--- OUTSIDE RECORDS SUMMARY | 2024-10-16 15:07 | XMS_ITS | Encounter Summary ---
Author Organization [facility] Healthcare Address [address] [place] [address] Care Team Providers Care Patcher Bowling Ball Name Role Phone Sandi Alfaro Primary Care Provider + Encounter Details Date Type Department Care Team (Late st Contact Info) Description 12/25/2023 Orders Only [facility] [place] Health Information Management [address] [place] [address] [phone] Scanning, Provider Social History Tobacco Use Types Packs/Day Years Used Date Smoking Tobacco: Some Days Cigarettes 0.3 15 Smokeless Tobacco: Never Alcohol Use Standard Drinks/Week Comments Yes 0 (1 standard drink = 0.6 oz pur e alcohol) Sex and Gender Information Value Date Recorded Sex Assigned at Not on file Legal Sex Male 3:15 AM DIRECTOR PHARMACEUTICAL Gender Identity Male 09/03/2018 6:22 AM CDT [...] on filedocumented in this encounter Care Teams Patcher Bowling Ball Relationship Specialty Start Date End Date Sandi Alfaro PA PCP - General Nurse Practitioner 08/21/17 documented as of this encounter
--- OUTSIDE RECORDS SUMMARY | 2024-10-16 15:07 | XMS_ITS | Encounter Summary ---
Author Organization [facility] Address [address] [place] [address] Care Team Providers Care Asphalt Tile Floor Layer Name Role Phone Sandi Alfaro Primary Care Provider [phone] Cheryl Huston RN Unavailable Unavailable Encounter Details Date Type Department Care Team (Late st Contact Info) Description 08/27/2022 MyChart Message Enc [facility] Medical Group - [facility] [address] [place], [place] [address] [employer], [facility] Provider Air Quality Message Social History [...] Sex Assigned at Male 03/31/2024 8:58 AM NUCLEAR OPERATOR Legal Sex Male 8:01 PM CDT [...] documented as of this encounter Care Teams Asphalt Tile Floor Layer Relationship Specialty Start Date End Date Sandi Alfaro APNP Family & Internal Medicine [address] [address] PCP - General ADVANCED PRACTICE EXPERIMENTAL OUTBOARD MOTORS MECHANIC 04/28/17 Cheryl Huston, child development instructor (Ambulatory) REGISTERED NURSE 03/23/19 documented as of this encounter
--- OUTSIDE RECORDS SUMMARY | 2024-10-16 15:07 | XMS_ITS | Patient Health Record ---
Author Organization [facility] Address [address] [place], [place] [id number] Care Team Providers Care Cdl Program Coordinator Name Role Phone PIETER WALSH Unavailable [phone] Sandi Alfaro Unavailable Unavailable Allergies No Known Allergies Reason For Referral No Information Medications Medication SIG (Take, Route, Frequency, Duration) Notes Start Date End Date Status Plavix Active Xarelto Active Augmented betamethasone 0.5 MG/ML Topical Cream CUTANEOUS Augmented betamethasone 0.5 MG/ML Topical CreamOriginal MedicationAugmented betamethasone 0.5 MG/ML Topical Cream *Reorder from [employer] for eRx and Interaction Alerts* 7 Active clotrimazole 10 MG/ML Topical Cream CUTANEOUS clotrimazole 10 MG/ML Topical CreamOriginal Medicationclotrimazole 10 MG/ML Topical Cream *Reorder from [employer] for eRx and Interaction Alerts* 7 Active betamethasone 0.5 MG/ML / clotrimazole 10 MG/ML Topical Cream CUTANEOUS betamethasone 0.5 MG/ML / clotrimazole 10 MG/ML Topical CreamOriginal Medicationbetamethasone 0.5 MG/ML / clotrimazole 10 MG/ML Topical Cream *Reorder from [employer] for eRx and Interaction Alerts* 7 Active betamethasone 0.5 MG/ML / clotrimazole 10 MG/ML Topical Cream [Lotrisone] CUTANEOUS betamethasone 0.5 MG/ML / clotrimazole 10 MG/ML Topical Cream [Lotrisone]Original Medicationbetamethasone 0.5 MG/ML / clotrimazole 10 MG/ML Topical Cream [Lotrisone] *Reorder from [employer] for eRx and Interacti 7 Active clobetasol propionate 0.0005 MG/MG Topical Ointment [Temovate] CUTANEOUS clobetasol propionate 0.0005 MG/MG Topical Ointment [Temovate]Original Medicationclobetasol propionate 0.0005 MG/MG Topical Ointment [Temovate] *Reorder from [employer] for eRx and Interaction Alerts* 7 Active [...] 02/26/2016 Administered Vital Signs Height-cm 182.88 cm 09/19/2024 Weight-kg 149.69 kg 09/19/2024 Height 72.00 in 09/19/2024 Weight 330 lbs 09/19/2024 BMI 44.75 kg/m2 09/19/2024 Encounters Encounter Location Date Provider Diagnosis [facility] [address] [place] [phone] 09/19/2024 PIETER SNOOK Tinea unguium B35.1 ; Pain in right toe(s) M79.674 ; Pain in left toe(s) M79.675 ; Atherosclerosis of [place] arteries of extremities with intermittent claudication, bilateral legs I70.213 and Type 2 diabetes mellitus with other circulatory complications E11.59 [facility] [address] [place] [address] [phone] 11/09/2023 PIETER SNOOK Tinea unguium B35.1 ; Pain in right toe(s) M79.674 ; Pain in left toe(s) M79.675 ; Atherosclerosis of [place] arteries of extremities with intermittent claudication, bilateral legs I70.213 and Type 2 diabetes mellitus with other circulatory complications E11.59 [facility] [place] [address] [place] [address] [id number] 01/25/2024 PIETER SNOOK Tinea unguium B35.1 ; Pain in right toe(s) M79.674 ; Pain in left toe(s) M79.675 ; Atherosclerosis of [place] arteries of extremities with intermittent claudication, bilateral legs I70.213 and Type 2 diabetes mellitus with other circulatory complications E11.59 [facility] [place] [address] [place] [address] [id number] 03/28/2024 PIETER SNOOK Tinea unguium B35.1 ; Pain in right toe(s) M79.674 ; Pain in left toe(s) M79.675 ; Atherosclerosis of [place] island arteries of extremities with intermittent claudication, bilateral legs I70.213 and Type 2 diabetes mellitus with other circulatory complications E11.59 [facility] [place] [address] [place] [address] [id number] 06/27/2024 PIETER SNOOK Tinea unguium B35.1 ; Pain in right toe(s) M79.674 ; Pain in left toe(s) M79.675 ; Atherosclerosis of [place] island arteries of extremities with intermittent claudication, bilateral [...] any subungual debris and necrotic tissue removed 09/19/2024 Tinea unguium (ICD-10 - B35.1) NAIL DEBRIDEMENT: Nails 1-5 Bilateral were debrided extensively with nail nippers and emery board, reducing length and girth to pink healthy tissue with any subungual debris and necrotic tissue removed 06/27/2024 Pain in right toe(s) (ICD-10 - M79.674) 03/28/2024 Pain in left toe(s) (ICD-10 - M79.675) 01/25/2024 Pain in right toe(s) (ICD-10 - M79.674) 09/19/2024 Pain in right toe(s) (ICD-10 - M79.674) 11/09/2023 Pain in right toe(s) (ICD-10 - M79.674) 11/09/2023 Pain in left toe(s) (ICD-10 - M79.675) 09/19/2024 Pain in left toe(s) (ICD-10 - M79.675) 01/25/2024 Pain in left toe(s) (ICD-10 - M79.675) 03/28/2024 Atherosclerosis of pra[place] island arteries of extremities with intermittent claudication, bilateral legs (ICD-10 - I70.213) 06/27/2024 Pain in left toe(s) (ICD-10 - M79.675) 01/25/2024 Atherosclerosis of [place] island arteries of extremities with intermittent claudication, bilateral [...] well as the Amputation Prevention Guide. 06/27/2024 Atherosclerosis of [place] island arteries of extremities with intermittent claudication, bilateral legs (ICD-10 - I70.213) 09/19/2024 Atherosclerosis of [place] island arteries of extremities with intermittent claudication, bilateral legs (ICD-10 - I70.213) 11/09/2023 Atherosclerosis of [place] island arteries of extremities with intermittent claudication, bilateral [...] as well as the Amputation Prevention Guide. 09/19/2024 Type 2 diabetes mellitus with other circulatory [...] the Amputation Prevention Guide. Plan Of Treatment Next Appt Details Provider Name:PIETER WALSH, 08:00:00 AM, [address], [facility], [place], [place], [phone], Insurance Providers Payer Name Payer Address Payer Phone Subscriber Number Group Number Insured Name Patient Relationship to Insured Coverage Start Date Coverage End Date Medicare Part B [facility] [address] [place] [phone] [id number] KLAUDIA HALEY Self - patient is the insured Medical (General) History Medical History History ICD Code Diabetic
--- OUTSIDE RECORDS SUMMARY | 2024-10-16 15:07 | XMS_ITS | Encounter Summary ---
Author Organization [facility] Healthcare Address [address] [place] [address] Care Team Providers Care Mixer And Scaler Name Role Phone Salo Forrest MD Primary Care Provider +- [phone] Sandi Alfaro Primary Care Provider + Encounter Details Date Type Department Care Team (Late st Contact Info) Description 08/03/2017 Orders Only [facility] [place] Health Information Management [address] [place] [address] Scanning, Provider Social History Tobacco Use Types Packs/Day Years Used Date Smoking Tobacco: Former Smokeless Tobacco: Never Alcohol Use Standard Drinks/Week Comments Yes 0 (1 standard drink = 0.6 oz pur e alcohol) Sex and Gender Information Value Date Recorded Sex Assigned at Not on file 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 Sex 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 Gender Identity Male 09/03/2018 6:22 AM CDT Sexual Orientation Straight 09/03/2018 6: 22 AM CDT documented as of this encounter Plan of Treatment Not on file documented as of this encounter Procedures Procedure Name Priority Date/Time Associated Diagnosis Comments CARDIOLOGY DOCUMENT SCAN 08/03/2017 documented in this encounter Results * Cardiology Document Scan (08/03/2017) Anatomical Region Laterality Modality Other Provider Scanning CV CARDIAC SERVICES PROCEDURES Final Result documented in this encounter Visit Diagnoses Not on filedocumented in this encounter Care Teams Mixer And Scaler Relationship Specialty Start Date End Date Salo Forrest MD [address] [place] [address] PCP - General 3/31/17 6/21/18 Sandi Alfaro PA [address] [place] [address] PCP - General Nurse Practitioner 08/21/17 documented as of this encounter
--- OUTSIDE RECORDS SUMMARY | 2024-10-16 15:07 | XMS_ITS | Encounter Summary ---
Author Organization [facility] Address [address] [place] [address] Care Team Providers Care Instructor Wastewater Treatment Plant Name Role Phone Sandi Alfaro Primary Care Provider [phone] [phone] Cheryl Huston RN Unavailable Unavailable Encounter Details Date Type Department Care Team (Late st Contact Info) Description 08/18/2023 Visionary Mobile Message Enc [facility] Medical Group Multispecialty Care - [address], [address] [place] [id number] [employer], [facility] Provider Results Social History Tobacco Use Types Packs/Day Years Used Date Smoking Tobacco: Every Day Cigarettes 0.3 40 Smokeless Tobacco: Never Comments:currently smoking 2 -3 cigarettes a day Alcohol Use Standard Drinks/Week Comments Yes 0 (1 standard drink = 0.6 oz pur e alcohol) very rarely 6 beers/year [facility] Utilities Answer Date Recorded In the past 12 months has [facility] [employer], gas, oil, or water [employer] threatened to shut off services in your [...] How often do you attend chur or buddhism services? 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
--- OUTSIDE RECORDS SUMMARY | 2024-10-16 15:07 | XMS_ITS ---
Author Organization [facility] Address [address] [place], [place] [id number] Care Team Providers Care Lap Cutter Name Role Phone PIETER WALSH Unavailable [phone] Sandi Alfaro Unavailable Unavailable Allergies No Known Allergies REASON FOR VISIT The patient has had three heart attacks since last visit. He has had more stents placed in his heart and he is doing better., Patient presents for at-risk foot care . The patient has painful toenailsthat are causing difficulty with ambulation and shoegear. The onset is gradual. The patient has diabetes mellitus Medications Medication SIG (Take, Route, Frequency, Duration) Notes Start Date End Date Status Xarelto Active Augmented betamethasone 0.5 MG/ML Topical Cream CUTANEOUS Augmented betamethasone 0.5 MG/ML Topical CreamOriginal MedicationAugmented betamethasone 0.5 MG/ML Topical Cream *Reorder from [employer] for eRx and Interaction Alerts* 7 Active betamethasone 0.5 MG/ML / clotrimazole 10 MG/ML Topical Cream CUTANEOUS betamethasone 0.5 MG/ML / clotrimazole 10 MG/ML Topical CreamOriginal Medicationbetamethasone 0.5 MG/ML / clotrimazole 10 MG/ML Topical Cream *Reorder from [employer] for eRx and Interaction Alerts* 7 Active betamethasone 0.5 MG/ML / clotrimazole 10 MG/ML Topical Cream [Lotrisone] CUTANEOUS betamethasone 0.5 MG/ML / clotrimazole 10 MG/ML Topical Cream [Lotrisone]Original Medicationbetamethasone 0.5 MG/ML / clotrimazole 10 MG/ML Topical Cream [Lotrisone] *Reorder from [employer] for eRx and Interacti 7 Active clobetasol propionate 0.0005 MG/MG Topical Ointment [Temovate] CUTANEOUS clobetasol propionate 0.0005 MG/MG Topical Ointment [Temovate]Original Medicationclobetasol propionate 0.0005 MG/MG Topical Ointment [Temovate] *Reorder from [employer] for eRx and Interaction Alerts* 7 Active Plavix Active clotrimazole 10 MG/ML Topical Cream CUTANEOUS clotrimazole 10 MG/ML Topical CreamOriginal Medicationclotrimazole 10 MG/ML Topical Cream *Reorder from [employer] for eRx and Interaction Alerts* 7 Active Vital Signs Height 72.00 in 09/19/2024 Weight 330 lbs 09/19/2024 BMI 44.75 kg/m2 09/19/2024 Height-cm 182.88 cm 09/19/2024 Weight-kg 149.69 kg 09/19/2024 Encounters Encounter Location Date Provider Diagnosis [facility] [place] [address] [place] [phone] 09/19/2024 PIETER JILLIAN Tinea unguium B35.1 ; Pain in right toe(s) M79.674 ; Pain in left toe(s) M79.675 ; Atherosclerosis of [place] arteries of extremities with intermittent claudication, bilateral legs I70.213 and Type 2 diabetes mellitus with other circulatory complications E11.59 Assessments Encounter Date Diagnosis (ICD Code) Assessment Notes Treatment Notes Treatment Clinical Notes Section Notes 09/19/2024 Tinea unguium (ICD-10 - B35.1) NAIL DEBRIDEMENT: Nails 1-5 Bilateral were debrided extensively with nail nippers and emery board, reducing length and girth to pink healthy tissue with any subungual debris and necrotic tissue removed 09/19/2024 Pain in right toe(s) (ICD-10 - M79.674) 09/19/2024 Pain in left toe(s) (ICD-10 - M79.675) 09/19/2024 Atherosclerosis of alat[place] arteries of extremities with intermittent claudication, bilateral legs (ICD-10 - I70.213) 09/19/2024 Type 2 diabetes mellitus with other [...] sooner if problems develop. Provider Name:PIETER WALSH, 08:00:00 AM, [address], [address], [phone], Progress Notes * KLAUDIA HALEY BDOB:[birth year] (64 yo M)Acc No.[id number]:09/19/2024 Patient: KLAUDIA DUONG Provider: Kristal Walsh DPM :1960 A ge:64 Y S ex:Male Date:09/19/2024 Address:[facility] [address] [facility] Subjective: * Chief Complaints: * 1 . The patient has had three heart attacks since last visit. He has had more stents placed in his heart and he is doing better.. 2. Patient presents for at-risk foot care . [...] Date last seen by Dr. Alfaro was 07/2024., Initials . * Medical History: [place]. * Family History: F ather: PRN - [...] every day smoker. * Medications: T aking Plavix , Taking Xarelto , Taking Augmented betamethasone 0.5 MG/ML Topical Cream CUTANEOUS , Notes to Pharmacist: Augmented betamethasone 0.5 MG/ML Topical CreamOriginal MedicationAugmented betamethasone 0.5 MG/ML Topical Cream *Reorder from [employer] for eRx and Interaction Alerts*, Taking betamethasone 0.5 MG/ML / clotrimazole 10 MG/ML Topical Cream CUTANEOUS , Notes to Pharmacist: betamethasone 0.5 MG/ML / clotrimazole 10 MG/ML Topical CreamOriginal Medicationbetamethasone 0.5 MG/ML / clotrimazole 10 MG/ML Topical Cream *Reorder from [employer] for eRx and Interaction Alerts*, Taking betamethasone 0.5 MG/ML / clotrimazole 10 MG/ML Topical Cream [Lotrisone] CUTANEOUS , Notes to Pharmacist: betamethasone 0.5 MG/ML / clotrimazole 10 MG/ML Topical Cream [Lotrisone]Original Medicationbetamethasone 0.5 MG/ML / clotrimazole 10 MG/ML Topical Cream [Lotrisone] *Reorder from [employer] for eRx and Interacti, Taking clobetasol propionate 0.0005 MG/MG Topical Ointment [Temovate] CUTANEOUS , Notes to Pharmacist: clobetasol propionate 0.0005 MG/MG Topical Ointment [Temovate]Original Medicationclobetasol propionate 0.0005 MG/MG Topical Ointment [Temovate] *Reorder from [employer] for eRx and Interaction Alerts*, Taking clotrimazole 10 MG/ML Topical Cream CUTANEOUS , Notes to Pharmacist: clotrimazole 10 MG/ML Topical CreamOriginal Medicationclotrimazole 10 MG/ML Topical Cream *Reorder from [employer] for eRx and Interaction Alerts*, Medication List [...] - M79.675 4 . A therosclerosis of [place]at[place] arteries of extremities with intermittent claudication, bilateral [...] NAIL, 6 OR MORE, Modifiers: Q8 * Preventive Medicine: Screenings: F all risk screening F all Risk Assessment: O ne fall without injury in the past year, P cristhian of Care: D ocumented, T ype of fall plan of care: B alance, strength and gait training or instruction provided. * Follow Up: 1 0 - 12 weeks (Reason: At-Risk Foot care, sooner if problems develop.) * Billing Information: * Visit Code: * Procedure Codes: 33143 DEBRIDE NAIL, 6 OR MORE. Modifiers: Q8 * Electronic signature of PIETER WALSH DPM on 10/16/2024 at 03:06 PM CDT Sign off status: Pending * Provider: Kristal Walsh DPM Date: 0 09/19/2024 Generated for Michelle chi/Danielle/Nimesh on: 0 10/16/2024 03:06 PM CDT History and Physical Notes * [...] Date last seen by Dr. Alfaro was 07/2024., Initials mf Examination Category Sub-Category Detail Notes Category Not [...]
--- OUTSIDE RECORDS SUMMARY | 2024-10-16 15:07 | XMS_ITS | Encounter Summary ---
Author Organization [facility] Address [address] [place] [address] Care Team Providers Care Storage Administrator Name Role Phone Sandi Alfaro Primary Care Provider [phone] Sandi Alfaro Unavailable [phone] Cheryl Huston RN Unavailable Unavailable Encounter Details Date Type Department Care Team (Latest Contact Info) Description 10/26/2017 Abstract 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 Legal Sex Male 8:01 PM CDT Gender [...] Rule Out 05/03/2020 05/03/2020 05/03/2020 3:25 PM SHEET HANGER COVID-19 Rule Out 05/12/2023 05/12/2023 05/13/2023 12:01 AM CDT Influenza - Seasonal 05/14/2023 05/14/2023 024 12:32 AM CDT Respiratory Rule Out 09/19/2024 09/19/202409/19/2 025 5:40 PM CDT documented as of this encounter Care Teams Storage Administrator Relationship Specialty Start Date End Date Sandi Alfaro APNP Family & Internal Medicine [address] [address] PCP - General ADVANCED PRACTICE PAI GOW MANAGER 04/28/17 Sandi Alfaro APNP [address] [place] [address] PCP - Med Group - [facility] Attributed Provider 03/02/15 03/01/22 Cheryl Huston, sugar cane planting equipment operator (Ambulatory) REGISTERED NURSE 03/23/19 documented as of this encounter
--- OUTSIDE RECORDS SUMMARY | 2024-10-16 15:07 | XMS_ITS | Clinical Summary ---
Author Organization [facility] Address [address] [place] [address] Care Team Providers Care Home Appliance Tech Name Role Phone Sandi Alfaro Primary Care Provider [phone] Cheryl Huston RN Unavailable Unavailable Allergies No [...] complication, without long-term current use of insulin ([facility]) USE 1 STRIP BY OTHER ROUTE 2 (TWO) TIMES A DAY. 100 strip Active tamsulosin (FLOMAX) 0.4 MG Cap Take 1 capsule (0.4 mg total) by mouth nightly at bedtime. 024 Active vitamin B-12 (CYANOCOBALAMIN) 1000 MCG tablet [...] ons:Dyslipidemia associated with type 2 diabetes mellitus ([facility]) Inject 3 mg into the skin once a week. 6 mL 11 024 Active meclizine (ANTIVERT) 25 MG tablet TAKE 1 TABLET BY MOUTH THREE TIMES A DAY NEEDED FOR DIZZINES 024 Active losartan (COZAAR) 100 MG tabletIndications :Hypertensive heart disease with congestive heart failure, unspecified heart failure type ([facility]),Primary hypertension TAKE 1 TABLET BY MOUTH EVERY DAY 90 tablet 1 025 Active albuterol sulfate HFA 108 (90 Base) MCG/ACT inhaler INHALE 2 PUFFS EVERY 4 - 6 HOURS NEEDED FOR SHORTNESS OF BREATH OR WHEEZING FOR 30 DAYS 024 Active omeprazole (PRILOSEC) 40 MG capsuleIndication s:Gastroesophagea l reflux disease without esophagitis TAKE 1 CAPSULE (40 MG TOTAL) BY MOUTH DAILY. 90 capsule 1 025 Active naloxone (NARCAN) 4 MG/0.1ML nasal sprayIndications: Mixed anxiety depressive disorder 1 spray by Nasal route as needed for Opioid reversal. may repeat every 2 to 3 minutes in alternating nostrils until medical assistance becomes available 1 each 2025 Active Additional Information Patient not taking.Reported [...] MCG/ACT inhalerIndication s:Pulmonary emphysema, unspecified emphysema type ([facility]) Inhale 2 puffs into the lungs 2 (two) times daily. 10.7 g 5 025 Active doxazosin (CARDURA) 2 MG tablet Take 1 tablet (2 mg total) by mouth nightly at bedtime. Active ondansetron (ZOFRAN-ODT) 4 MG disintegrating tabletIndications :Vertigo Take 1 tablet (4 mg total) by mouth every 8 (eight) hours as needed for Nausea. 30 tablet 025 Active JARDIANCE 10 MG tabletIndications :Type 2 diabetes mellitus without complication, without long-term current use of insulin ([facility]) TAKE 1 TABLET BY MOUTH EVERY DAY 90 tablet 025 Active diclofenac sodium (VOLTAREN) 1 % gel Apply 2 g topically 4 (four) times daily. 2 g 025 Active amLODIPine (NORVASC) 10 MG tabletIndications :Primary hypertension TAKE 1 TABLET BY MOUTH EVERY DAY 90 tablet 1 025 Active buPROPion SR (WELLBUTRIN SR) 150 MG 12 hr tabletIndications :Mixed anxiety depressive disorder TAKE 1 TABLET BY MOUTH TWICE A DAY 180 tablet 1 025 Active metFORMIN (GLUCOPHAGE) 1000 MG tabletIndications :Diabetic foot ([facility]) TAKE 1 TABLET BY MOUTH TWICE A DAY 180 tablet Active ALPRAZolam (XANAX) 0.25 MG tabletIndications :Mixed anxiety depressive disorder,Primary insomnia Take 1 tablet (0.25 mg total) by mouth nightly at bedtime. TAKE 1 TABLET (0.25 MG TOTAL) BY MOUTH AT NIGHT FOR SLEEP Strength: 0.25 mg 30 tablet Active buPROPion SR (WELLBUTRIN SR) 150 MG 12 hr tabletIndications :Mixed anxiety depressive disorder TAKE 1 TABLET BY MOUTH TWICE A DAY 180 tablet 1 025 2024 Discontinued amLODIPine (NORVASC) 10 MG tabletIndications :Primary hypertension TAKE 1 TABLET BY MOUTH EVERY DAY 90 tablet 1 025 2024 Discontinued metFORMIN (GLUCOPHAGE) 1000 MG tabletIndications :Diabetic foot ([facility]) TAKE 1 TABLET BY MOUTH TWICE A DAY 180 tablet 025 2024 Discontinued ALPRAZolam (XANAX) 0.25 MG tabletIndications :Mixed anxiety depressive disorder,Primary insomnia Take 1 tablet (0.25 mg total) by mouth nightly at bedtime. TAKE 1 TABLET (0.25 MG TOTAL) BY MOUTH AT NIGHT FOR SLEEP Strength: 0.25 mg 30 tablet 025 2024 Discontinued(R domitila) Active Problems Problem Noted Date Diagnosed Date Thrombocytopenia 03/31/2024 Polyneuropathy associated with underlying diseas e ([facility]) 12/16/2023 Morbid (severe) obesity due to [...] failure with p reserved ejection fraction ([facility]) 11/12/2018 Arthralgia of left hand 11/02/2018 Enchondroma of bone of hand, left 11/02/2018 Carpal tunnel syndrome on left 08/26/2018 Cryptogenic stroke ([facility]) 07/06/2018 Skin lesion of right arm 06/28/2018 Weakness 05/26/2018 Status post placement of implantable loop record er 10/13/2017 Overview (01/13/2018): Overview: [employer] Reveal Loop Recorder. Dx; Cryptogenic Stroke. DOI 10/12/[address] Willoughby. [facility] remote monitoring. TIA (transient ischemic attack) 10/06/2017 Mild emphysema ([facility]) 08/28/2017 Hepatic steatosis 08/28/2017 Memory loss 05/18/2017 Chest pain 04/30/2017 S/P coronary artery stent placement 12/17/2016 Hemorrhoids 10/03/2016 Hearing loss 08/01/2016 Decreased hearing 07/17/2016 Chronic nausea 03/27/2016 Diabetic foot ([facility]) 03/10/2016 Abdominal wall bulge 03/10/2016 CHF (congestive heart failure) ([facility]) 01/14/2016 Peripheral edema 12/19/2015 Tinnitus 11/08/2015 History of kidney stones 10/03/2015 Insomnia 05/07/2015 Chronic cough 03/20/2015 Hypertensive heart disease w ith congestive heart failure ([facility]) 02/20/2015 Overview (01/13/2018): Overview: Hypertensive heart disease with diastolic heart failure Coronary artery disease of n ative artery of [place] heart with stable angina pectoris 02/20/2015 Overview (01/13/2018): Overview: Coronary artery disease involving [place] coronary artery of [place] heart with other form of angina pectoris CVA, old, hemiparesis ([facility]) 02/21/20 15 Overview (01/13/2018): Overview: CVA, old, hemiparesis Dyslipidemia associated with type 2 diabetes mellitus ([facility]) 02/20/2015 Overview (01/13/2018): Overview: DM (diabetes mellitus) Overview: DM type 2 with diabetic dyslipidemia Mixed diabetic hyperlipidemi a associated with type 2 diabetes mellitus ([facility]) 02/20/2015 Overview (05/17/2021): DM type 2 [...] Overview: HTN (hypertension), benign Cerebrovascular accident (CVA) ([facility]) 08/23/2013 Hyperlipidemia 08/23/2013 Resolved Problems Problem Noted Date Diagnosed Date Resolved Date Left nephrolithiasis 10/07/2017 018 Encounter for screening for lung cancer 04/09/2017 06/28/2018 BMI 45.0-49.9, adult 10/03/2016 023 Morbid obesity 08/13/2016 05/15/2022 Encounter for preventive health examination 08/23/2013 06/28/2018 Encounters Date Type Department Care Team Description 09/28/2024 Scan [facility] HEALTH INFO SRVCS Scanned, [facility] Lab (SCAN) 09/19/2024 3:11 PM CDT - 09/19/2024 6:56 PM CDT Emergency [facility] Emergency Room [address] [place] [address] Aiden Mendiola MD Medical Problem (X 3 days ) Discharge Disposition: Home or Self Care (Routine Discharge) 09/19/2024 Travel 09/19/2024 Telephone [facility] [address] [phone] Sandi Alfaro APNP Information 09/10/2024 Scan [facility] HEALTH INFO SRVCS Scanned, Doc [facility] CT (SCAN); Lab (SCAN) 08/30/2024 12:20 PM CDT Office Visit [address] [phone] Sandi Alfaro APNP TCM 08/30/2024 Travel 08/23/[address] [phone] Sandi Alfaro APNP TCM 08/19/2024 Scan [facility] HEALTH INFO SRVCS Scanned, [facility] 08/18/2024 Scan [facility] HEALTH INFO SRVCS Scanned, [facility] Image (SCAN); CT (SCAN); ECG (SCAN); Lab (SCAN) 08/17/2024 Telephone [facility] Internal [address] [phone] Sandi Alfaro APNP Vomiting 08/08/2024 Telephone [facility] [address] [phone] Sandi Alfaro APNP Refill Request 07/20/2024 Scan [facility] HEALTH INFO SRVCS Scanned, [facility] Lab (SCAN) 07/19/2024 9:20 AM CDT Office Visit [address] [phone] Sandi Alfaro APNP Heart Problem 07/19/2024 Travel from Last 3 Months Immunizations Immunization Administration [...] pur e alcohol) very rarely 6 beers/year [employer] Utilities Answer Date Recorded In the past 12 months has e [place], [employer], or water [employer] threatened to shut off services in your [...] often do you attend chur ch or shinto services? Never 05/12/2023 Do you belong to [...] Recorded Patient Health Questionnaire-2 Score 0 03/31/2024 [facility] - Occupational [...] Sex Assigned at Male 03/31/2024 8:58 AM ARTIST SUSPECT Legal Sex Male 8:01 PM CDT Gender Identity Not on file Sexual Orientation Not on file Last Filed Vital Signs Vital Sign Reading Time Taken Comments Blood Pressure 117/67 09/19/2024 6:00 PM CDT Pulse 75 09/19/2024 6:00 PM CDT Temperature 36.7 C (98 F) 09/19/2024 3:56 PM CDT Respiratory Rate 22 09/19/2024 6:00 PM CDT Oxygen Saturation 96% 09/19/2024 6:00 PM CDT Inhaled Oxygen Concentration - - Weight 134.3 kg (296 lb) 09/19/2024 3:12 PM CDT Height 182.9 cm (6') 09/19/2024 3:12 PM CDT Body Mass Index 40.14 09/19/2024 3:12 PM CDT Plan of Treatment Health Maintenance [...] Vaccine: 50+ Years Completed 06/28/2021 PHQ-2 (Physician [place]) Completed 03/31/2024 Meningococcal B Vaccine Aged Out No l onger eligible based on patient's age to complete this topic Meningococcal Vaccine Aged Out No shyam jose eligible based on patient's age to complete this topic RSV Immunizations Under 20 Months Aged Out No longer eligible based on patient's age to complete this topic Procedures Procedure Name Priority Date/Time Associated Diagnosis Comments OUTSIDE LAB (SCAN ORDER) 09/28/2024 OUTSIDE LAB (SCAN ORDER) 09/28/2024 OUTSIDE LAB (SCAN ORDER) 09/28/2024 OUTSIDE LAB (SCAN ORDER) 09/28/2024 OUTSIDE LAB (SCAN ORDER) 09/28/2024 OUTSIDE LAB (SCAN ORDER) 09/28/2024 TROPONIN, QUANT STAT 09/19/2024 6:05 PM CDT RESP SYNCYTIAL VIRUS STAT 09/19/2024 5:10 PM CDT INFLUENZA A & B STAT 09/19/2024 5:10 PM CDT XR CHEST PORTABLE STAT 09/19/2024 5:0 1 PM CDT PRO-BRAIN NATRIURETIC PEPTIDE STAT 09/19/2024 4:10 PM CDT TROPONIN, QUANT STAT 09/19/2024 4:10 PM CDT COMPREHENSIVE METABOLIC PANEL STAT 09/19/2024 4:10 PM CDT CBC W/DIFF AUTOMATED STAT 09/19/2024 4:10 PM CDT ECG 12-LEAD Routine 09/19/2024 3:[address] GENERIC 09/10/2024 OUTSIDE LAB (SCAN ORDER) 09/10/2024 OUTSIDE LAB (SCAN ORDER) 09/10/2024 OUTSIDE LAB (SCAN ORDER) 09/10/2024 CT GENERIC 08/18/2024 CT GENERIC 08/18/2024 ECG GENERIC (SCAN ORDER) 08/18/2024 OUTSIDE LAB (SCAN ORDER) 08/18/2024 OUTSIDE LAB (SCAN ORDER) 08/18/2024 OUTSIDE LAB (SCAN ORDER) 08/18/2024 OUTSIDE LAB (SCAN ORDER) 08/18/2024 OUTSIDE LAB (SCAN ORDER) 08/18/2024 IMAGE GENERIC 08/18/2024 IMAGE GENERIC 08/18/2024 OUTSIDE LAB (SCAN ORDER) 07/20/2024 DIABETIC RETINOPATHY EXAM (NEGATIVE)(SCAN ORDER) Routine 04/27/2024 HEMOGLOBIN, GLYCOSYLATED Routine 02/05/2024 Type 2 diabetes mellitus without complication, without long-term current use of insulin ([facility]) LIPID PANEL Routine 05/13/2023 6:00 AM CDT [...] to Health Maintenance Results * OUTSIDE LAB (SCAN ORDER) (09/28/2024) Only the most recent of15 resultswithin the time period is included. 09/28/2024 us [facility] Scanned SCANNING Final Resu lt * TROPONIN, QUANT (09/19/2024 6:05 PM CDT) Only the most recent of2 resultswithin the time period is included. TROPONIN I HIGH SENSITIVITY 6 0 - 75 ng/L 09/19/2024 6:34 PM CDT [facility] Comment: HIGH DOSES OF BIOTIN, TROPONIN-SPECIFIC AUTOANTIBODIES, AND ANTIBODY THERAPY CONTAINING HAMA MAY INTERFERE WITH THIS TEST RESULT. CORRELATION TO CLINICAL HISTORY AND PRESENTATION RECOMMENDED. 09/19/2024 6:05 PM CDT Aiden Mendiola MD LABORATORY Final Resul t [facility] [address] [place] [address], [place] [phone] * INFLUENZA A & B (09/19/2024 5:10 PM CDT) SPECIMEN TYPE NASOPHARYNGEAL SWAB 09/19/2024 5:18 PM CDT [facility] INFLUENZA A NEGATIVE NEGATIVE 09/19/2024 5:40 PM CDT [facility] INFLUENZA B NEGATIVE NEGATIVE 09/19/2024 5:40 PM CDT [facility] NASAL NASOPHARYNGEAL SWAB / Unknown 09/19/2024 5:10 PM CDT Aiden Mendiola MD MICROBIOLOGY - GENERAL LORENZA BULLARD Final Result Performing Organization Address City/[facility]/ZIP Co de Phone Number [facility] [address] [place] [address], [place] [phone] * RESP SYNCYTIAL VIRUS (09/19/2024 5:10 PM CDT) SPECIMEN TYPE NASOPHARYNGEAL SWAB 09/19/2024 5:16 PM CDT [facility] RAPID RSV NEGATIVE NEGATIVE 09/19/2024 5:40 PM CDT [facility] NASOPHARYNGEAL SWAB / Unknown 09/19/2024 5:10 PM CDT us Aiden Mendiola MD MICROBIOLOGY - GENERAL LORENZA BULLARD Final Result Performing Organization Address City/[facility] Co de Phone Number [facility] [address] [place] [address], [place] [phone] * XR CHEST PORTABLE (09/19/2024 5:01 PM CDT) Anatomical Region Laterality Modality Chest Radiographic Sandhya ging 09/19/2024 5:10 PM CDT Impressions 09/19/2024 5:11 PM CDT IMPRESSION: No radiographic evidence of active chest disease. Ordered By: AIDEN MENDIOLA Interpreted By: Tuan Morales MD, 09/19/2024 5:10 PM Narrative 09/19/2024 5:11 PM CDT [facility] [address] [place] [address] Examination: XR CHEST PORTABLE Exam time: 09/19/2024 5:00 PM Clinical history: Chest pain Comparison: 05/12/2023 AP chest Technique: AP upright view Findings: Multiple external wires and leads. Cardiac silhouette and pulmonary vasculature are within normal limits. Metallic density cardiac loop recorder projecting over the left heart border. No evidence of pleural effusion. No evidence of pneumothorax. Procedure Note Tuan Morales MD - 09/19/2024 [facility] [address] [place] [address] Examination: XR CHEST PORTABLE Exam time: 09/19/2024 5:00 PM Clinical history: Chest pain Comparison: 05/12/2023 AP chest Technique: AP upright view Findings: Multiple external wires and leads. Cardiac silhouette andpulmonary vasculature are within normal limits. Metallic density cardiacloop recorder projecting over the left heart border. No evidence ofpleural effusion. No evidence of pneumothorax. IMPRESSION: No radiographic evidence of active chest disease. Ordered By: AIDEN MENDIOLA Interpreted By: Tuan Morales MD, 09/19/2024 5:10 PM Aiden Mendiola MD GENERAL IMAGING Final Resul t * PRO-BRAIN NATRIURETIC PEPTIDE (09/19/2024 4:10 PM CDT) PRO-B TYPE NATRIURETIC PEPTIDE 36 <125 PG/ML 09/19/2024 5:06 PM CDT [facility] Comment: CUT POINTS ESTABLISHED BY [employer] ON NT PROBNP (ICON) STUDY (2006). AGE INDEPENDENT: <300 PG/ML HAS A 99% NEGATIVE PREDICTIVE VALUE FOR EXCLUDING ACUTE CHF <50 YEARS: >450 PG/ML IS CONSISTENT WITH ACUTE CHF 50-75 YEARS: >900 PG/ML IS CONSISTENT WITH ACUTE CHF >75 YEARS: >1800 PG/ML IS CONSISTENT WITH ACUTE CHF IN PATIENTS WITH RENAL INSUFFICIENCY (GFR <60), >1200 PG/ML YIELDS A DIAGNOSTIC SENSITIVITY AND SPECIFICITY OF 89% AND 72% FOR ACUTE CHF. 09/19/2024 4:10 PM CDT us Aiden Mendiola MD LABORATORY Final Resul t [facility] [address] [place] [address], [place] [phone] * (ABNORMAL) COMPREHENSIVE METABOLIC PANEL (09/19/2024 4:10 PM CDT) Pathologist [facility] GLUCOSE 212(H) 70 - 99 MG/DL 09/19/2024 5:06 PM CDT [facility] BUN 16 7 - 18 MG/DL 09/19/2024 5:06 PM CDT [facility] CREATININE S/P/B 1.37(H) 0.7 - 1.3 MG/DL 09/19/2024 5:06 PM CDT [facility] SODIUM S/P/B 138 136 - 145 MMOL/L 09/19/2024 5:06 PM CDT [facility] POTASSIUM S/P/B 3.7 3.5 - 5.1 MMOL/L 09/19/2024 5:06 PM CDT [facility] CHLORIDE S/P/B 103 100 - 108 MMOL/L 09/19/2024 5:06 PM CDT [facility] CO2 23.9 21 - 32 MMOL/L 09/19/2024 5:06 PM CDT [facility] CALCIUM S/P/B 8.7 8.5 - 10.1 MG/DL 09/19/2024 5:06 PM CDT [facility] BILIRUBIN TOTAL S/P/B 0.5 0.2 - 1.2 MG/DL 09/19/2024 5:06 PM CDT [facility] TOTAL PROTEIN S/P/B 7.3 6.4 - 8.2 G/DL 09/19/2024 5:06 PM CDT [facility] ALBUMIN S/P/B 3.6 3.4 - 5.0 G/DL 09/19/2024 5:06 PM CDT [facility] AST 24 15 - 37 U/L 09/19/2024 5:06 PM CDT [facility] ALT 47 16 - 60 U/L 09/19/2024 5:06 PM CDT [facility] ALKALINE PHOSPHATASE S/P/B 70 50 - 136 U/L 09/19/2024 5:06 PM CDT [facility] ANION GAP 11.1 5 - 15 MMOL/L 09/19/2024 5:06 PM CDT [facility] BUN CREATININE RATIO 11.7 6 - 26 09/19/2024 5:06 PM T [facility] A/G RATIO 1.0 1.0 - 2.0 RATIO 09/19/2024 5:06 PM T [facility] GFR ESTIMATE 57(L) >90 ML/MIN/1.7 3 M2 09/19/2024 5:06 PM T [facility] Comment: NOTE: eGFR is not calculated for patients <18 years of age. This is an estimated GFR calculation using the new CKD EPI creatinine equation without race and so does not require a correction factor for race. This estimated GFR should not be used for calculating drug doses. 09/19/2024 4:10 PM CDT us Aiden Mendiola MD LABORATORY Final Resul t [facility] [address] [place] [address], [place] [phone] * (ABNORMAL) CBC W/DIFF AUTOMATED (09/19/2024 4:10 PM CDT) WBC 7.27 4.4 - 11.0 x10'3/uL 09/19/2024 4:51 PM CDT [facility] RBC 4.43(L) 4.50 - 5.90 x10'6/uL 09/19/2024 4:51 PM CDT [facility] HGB 13.6(L) 14.0 - 17.5 G/DL 09/19/2024 4:51 PM CDT [facility] HCT 39.9(L) 41.5 - 50.4 % 09/19/2024 4:51 PM CDT [facility] MCV 90.1 80.0 - 96.0 FL 09/19/2024 4:51 PM CDT [facility] MCH 30.7 26.5 - 31.4 PG 09/19/2024 4:51 PM CDT [facility] MCHC 34.1 31.9 - 34.8 G/DL 09/19/2024 4:51 PM CDT [facility] RDW 13.3 12.3 - 14.3 % 09/19/2024 4:51 PM CDT [facility] PLT 135(L) 151 - 353 x10'3/uL 09/19/2024 4:51 PM CDT [facility] MPV 11.3 9.7 - 11.9 FL 09/19/2024 4:51 PM CDT [facility] RBC MORPHOLOGY NORMAL 09/19/2024 4:51 PM CDT [facility] PLT MORPH. NORMAL 09/19/2024 4:51 PM CDT [facility] WBC MORPHOLOGY NORMAL 09/19/2024 4:51 PM CDT [facility] LYMPHOCYTES % 16.0 15.8 - 45.0 % 09/19/2024 4:51 PM CDT [facility] NEUTROPHILS % 71.9 42.1 - 71.9 % 09/19/2024 4:51 PM CDT [facility] MONOCYTES % 9.6 5.7 - 12.5 % 09/19/2024 4:51 PM CDT [facility] EOSINOPHILS 2.1 0.0 - 5.6 % 09/19/2024 4:51 PM CDT [facility] BASOPHILS 0.1 0.0 - 1.3 % 09/19/2024 4:51 PM CDT [facility] ABS. NEUTROPHILS 5.23 1.40 - 6.00 x10'3/uL 09/19/2024 4:51 PM CDT [facility] IMMATURE GRANS % 0.3 0.0 - 0.5 % 09/19/2024 4:51 PM CDT [facility] ABS. LYMPHOCYTES 1.16 0.80 - 4.70 x10'3/uL 09/19/2024 4:51 PM CDT [facility] 09/19/2024 4:10 PM CDT us Aiden Mendiola MD LABORATORY Final Resul t [facility] [address] [place] [phone], * ECG 12 lead (09/19/2024 3:58 PM CDT) 09/19/2024 3:58 PM CDT Narrative [facility] ([facility]) RAD - 09/21/2024 7:24 AM CDT [facility] Test Date: 2024-09-19 Pat Name: KLAUDIA HALEY Department: 85 Room: [place] [address] Gender: Male Dietitian Therapeutic: : 1960 Requested By: AIDEN MENDIOLA Order Number: [id number] Reading MD: Baron Sanchez Measurements Intervals [place] Rate: 79 P: 23 IA: 171 QRS: 2 QRSD: 165 T: 21 QT: 408 QTc: 469 Interpretive Statements SINUS RHYTHM RIGHT BUNDLE BRANCH BLOCK [120+ ms QRS DURATION, UPRIGHT V1, 40+ ms S IN I/aVL/V4/V5/V6] Compared to ECG 05/12/2023 16:05:34 No significant changes Procedure Note Baron Sanchez MD - 09/21/2024 [facility] Test Date: 2024-09-19 Pat Name: KLAUDIA HALEY Department: 85 Room: [place] [address] Gender: Male Dietitian Therapeutic: : 1960 Requested By: AIDEN MENDIOLA Order Number: [id number] Reading MD: Baron Sanchez Measurements Intervals [place] Rate: 79 P: 23 IA: 171 QRS: 2 QRSD: 165 T: 21 QT: 408 QTc: 469 Interpretive Statements SINUS RHYTHM RIGHT BUNDLE BRANCH BLOCK [120+ ms QRS DURATION, UPRIGHT V1, 40+ ms SIN I/aVL/V4/V5/V6] Compared to ECG 05/12/2023 16:05:34 No significant changes us Aiden Mendiola MD ECG ORDERABLES Final Resul t [facility] ([facility]) RAD * CT GENERIC (09/10/2024) Only the most recent of3 resultswithin the time period is included. Anatomical Region Laterality Modality Other 09/10/2024 us [facility] Scanned SCANNING Final Resu lt * ECG GENERIC (SCAN ORDER) (08/18/2024) 08/18/2024 [facility] Scanned SCANNING Final Resu lt * IMAGE GENERIC (08/18/2024) Only the most recent of2 resultswithin the time period is included. Anatomical Region Laterality Modality Other 08/18/2024 [facility] Scanned SCANNING Final Resu lt * DIABETIC RETINOPATHY EXAM (NEGATIVE) (04/27/2024) [facility] Scanned SCANNING Final Resu lt Performing Organization Address City/[facility]/ZIP Co de Phone Number [facility] * HEMOGLOBIN, GLYCOSYLATED (02/05/2024) HGB A1C 6.5 % [facility] 02/05/2024 Sandi WAGNERNP LABORATORY Final Resul t Performing Organization Address [facility]/ZIP Co de Phone Number [facility] [address] [place] [address], [place] * (ABNORMAL) LIPID PANEL (05/13/2023 6:00 AM CDT) CHOLESTEROL 87 <200 MG/DL 05/13/2023 7:18 AM CDT [facility] TRIGLYCERIDES 213(H) <150 MG/DL 05/13/2023 7:18 AM CDT [facility] HDL 24(L) >40.0 MG/DL 05/13/2023 7:18 AM CDT [facility] LDL (CALCULATED) 20 <100 MG/DL 05/13/2023 7:18 AM CDT [facility] NON HDL CHOLESTEROL 63 <130 MG/DL 05/13/2023 7:18 AM CDT [facility] CHOL/HDL RATIO 3.6 0.0 - 4.5 05/13/2023 7:18 AM CDT [facility] VLDL CALCULATION 43 5 - 55 MG/DL 05/13/2023 7:18 AM CDT [facility] LIPID INTERPRETATION 05/13/2023 7:18 AM CDT [facility] Comment: [facility] REPORT RECOMMENDATIONS: ADULT CHILD LOW RISK: CHOLESTEROL <200 <170 TRIGLYCERIDE <150 --- HDL >=60 --- LDL <100 <110 BORDERLINE: CHOLESTEROL 200-239 170-199 TRIGLYCERIDE 150-199 --- HDL 40-59 --- LDL 100-159 110-129 HIGH RISK: CHOLESTEROL >=240 >=200 TRIGLYCERIDE >=200 --- HDL <40 --- LDL >=160 >=130 05/13/2023 6:00 AM CDT Ayanna Bellamy MD LABORATORY Final Re sult [facility] [address] [place] [address], * HEPATITIS C ANTIBODY W/RFX TO HCV RNA ([facility] ONLY) (06/28/2021 11:22 AM CDT) HEPATITIS C AB NON-REACTI VE NON-REACT ARETHA [employer] [facility] SIGNAL TO CUTOFF 0.01 <[address] [facility] Comment: HCV antibody was non-reactive. There is no laboratory evidence of HCV infection. In most cases, no further action is required. However, if recent HCV exposure is suspected, a test for HCV RNA (test code 48829) is suggested. For additional information please refer to http://education.Spotster/faq/ADG22x4 (This link is being provided for informational/ educational purposes only.) 06/28/2021 11:2 2 AM CDT 06/29/2021 10:18 AM CDT us Sandi Alfaro APJOVITA LABORATORY Final Resul t [facility] [id number] [place] [id number] * CT CHEST WO CONT LOW DOSE [...] above. Thank you for choosing the [facility]'s Lung Screening Program. Referred By: NICK GRAYSON Interpreted By: Kvng Toscano MD, 09/21/2020 6:06 [...] in the left lung base posteriorly. Implanted cardiac cath lab radiology technologist device within the left chest subcutaneous tissues. [...] above. Thank you for choosing the [facility]'s Lung ScreeningProgram. Referred By: NICK GRAYSON Interpreted By: Kvng Toscano MD, 09/21/2020 6:06 PM us Nick Grayson MD CT Final Result * COLONOSCOPY (03/28/2015) [...] 11:13 PM 05/01/2017 6:00 PM Care Teams Home Appliance Tech Relationship Specialty Start Date End Date Sandi Alfaro APNP Family [place] [address] PCP - General ADVANCED PRACTICE CUTTING TABLE OPERATOR 04/28/17 Cheryl Huston cte teacher (Ambulatory) REGISTERED NURSE 03/23/19
--- OUTSIDE RECORDS SUMMARY | 2024-10-16 15:31 | XMS_ITS | Encounter Summary ---
Author Organization [facility] - [facility] Address [address] [place] [address] Care Team Providers Care Surgical Specialist Name Role Phone Sandi Alfaro Primary Care Provider [phone] Sandi Alfaro Unavailable [phone] Cheryl Huston RN Unavailable Unavailable Encounter Details Date Type Department Care Team (Late st Contact Info) Description 05/13/2021 Jampp Message Enc [facility] Medical Group Multispecialty Care - [facility] [address] [facility] [place] [id number] Eliza, [facility] Provider CPAP Social History Tobacco Use Types Packs/Day Years Used Date Smoking Tobacco: Every Day Cigarettes 0.3 40 Smokeless Tobacco: Never Comments:want to quit but gary s alot of stress right [id number] smoking about 3-4 cigaretts a day Alcohol Use Standard Drinks/Week Comments Yes 0 (1 standard drink = 0.6 oz pur e alcohol) very rarely 6 beers/year PHQ-2 Answer Date Recorded PHQ-2 Score - If the patient scores above 3, please move on to questions 3-9 4 01/23/2021 Sex and Gender Information Value Date Recorded Sex Assigned at Male 03/31/2024 8:58 AM POULTRY FARM SUPERVISOR Legal Sex Male 8:01 PM CDT Gender [...] Total Score: 7 01/24/20 21 1:37 PM POULTRY FARM SUPERVISOR documented as of this encounter Care Teams Surgical Specialist Relationship Specialty Start Date End Date Sandi Alfaro APNP Family & Internal Medicine [address] [address] PCP - General ADVANCED PRACTICE FARROWING MANAGER 04/28/17 Sandi Alfaro APNP [address] [place] [address] PCP - Med Group - MSSP Attributed Provider 03/02/15 03/01/22 Cheryl Huston paper rewinder operator (Ambulatory) REGISTERED NURSE 03/23/19 documented as of this encounter
--- OUTSIDE RECORDS SUMMARY | 2024-10-16 15:31 | XMS_ITS | Encounter Summary ---
Author Organization [facility] Healthcare Address [address] [place] [address] Care Team Providers Care Mechanic Senior Name Role Phone Sandi Alfaro Primary Care Provider + Encounter Details Date Type Department Care Team (Late st Contact Info) Description 12/25/2023 Orders Only [facility] Health Information Management [address] [place] [phone] Scanning, Provider Social History Tobacco Use Types Packs/Day Years Used Date Smoking Tobacco: Some Days Cigarettes 0.3 15 Smokeless Tobacco: Never Alcohol Use Standard Drinks/Week Comments Yes 0 (1 standard drink = 0.6 oz pur e alcohol) Sex and Gender Information Value Date Recorded Sex Assigned at Not on file Legal Sex Male 3:15 AM 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
--- OUTSIDE RECORDS SUMMARY | 2024-10-16 15:31 | XMS_ITS | Encounter Summary ---
Author Organization [facility] Healthcare Address [address] [place] [address] Care Team Providers Care Mix Crusher Operator Name Role Phone Sandi Alfaro Primary Care Provider + Encounter Details Date Type Department Care Team (Late st Contact Info) Description 10/14/2024 Telephone [facility] Medical Group Cardiology [address] [place] [address] Fernando Modi MD [address] [place], [place] [id number] Social History Tobacco Use Types Packs/Day Years Used Date Smoking Tobacco: Some Days Cigarettes 0.3 15 Smokeless Tobacco: Never Alcohol Use Standard Drinks/Week Comments Yes 0 (1 standard drink = 0.6 oz pur e alcohol) Sex and Gender Information Value Date Recorded Sex Assigned at Not on file Legal Sex Male 3:15 AM FLOOR WAXER Gender Identity Male 09/03/2018 6:22 AM CDT Sexual Orientation Straight 09/03/2018 6: 22 AM CDT documented as of this encounter Miscellaneous Notes * Telephone Encounter - Kenzie Dodd - 10/14/2024 2:22 PM CDT Patient requesting refill for Furosemide with 90 day supply. Please send to [facility] in [facility] in [place].Thank you. Contact: documented in this encounter Plan of Treatment Not on file documented as of this encounter Visit Diagnoses Not on filedocumented in this encounter Care Teams Mix Crusher Operator Relationship Specialty Start Date End Date Sandi Alfaro PA PCP - General Nurse Practitioner 08/21/17 documented as of this encounter
--- OUTSIDE RECORDS SUMMARY | 2024-10-16 15:31 | XMS_ITS | Clinical Summary ---
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 Dx; Cryptogenic Stroke. DOI 10/12/[address] Willoughby. [facility] remote monitoring. TIA (transient ischemic attack) 10/06/2017 S/P coronary artery stent placement 12/17/2016 Morbid obesity with BMI of 45.0-49.9, adult ([facility]) 08/13/2016 Mixed anxiety depressive disorder 05/01/2015 Overview (06/07/2016): Anxiety and depression Coronary artery disease of n ative artery of igiugig heart with stable angina pectoris 02/20/2015 Overview (06/07/2016): Coronary artery disease involving igiugig coronary artery of igiugig heart with other form of angina pectoris CVA, old, hemiparesis 02/20/2015 Overview (06/07/2016): CVA, old, hemiparesis Mixed diabetic hyperlipidemi a associated with type 2 diabetes mellitus ([facility]) 02/20/2015 Overview (06/07/2016): DM type 2 with diabetic dyslipidemia Hypertensive heart disease with congestive heart failure 02/20/2015 Overview (06/07/2016): Hypertensive heart disease with diastolic heart failure TAMIR on CPAP 10/17/2014 Overview (06/07/2016): TAMIR on CPAP Diabetes mellitus 10/17/2014 Overview (06/07/2016): DM (diabetes mellitus) Hypertension associated with diabetes 10/17/2014 Overview (06/07/2016): HTN (hypertension), benign Encounters Date Type Department Care Team Description 10/14/[address] [facility] Medical Group Cardiology [address] [place] [address] Fernando Modi MD 07/20/2024 Orders Only [facility] Health Information Management [address] [place] [address] Scanning, Provider from Last 3 Months [...] on file Legal Sex Male 3:15 AM GLOBAL HEAD ADVERTISER SOLUTIONS Gender Identity Male 09/03/2018 6:22 AM CDT [...] < - 150 EXTERNAL LAB Blood 10/20/2023 [facility] Provider LAB BLOOD ORDERABLES Elida l Result EXTERNAL LAB from Last 3 Months or Most Recently Relevant to Health Maintenance Insurance IDPA MEDICARE MEDICARE [facility] Care Teams Transplant Nurse Practitioner Relationship Specialty Start Date End Date Sandi Alfaro PA PCP - General Nurse Practitioner 08/21/17
--- OUTSIDE RECORDS SUMMARY | 2024-10-16 15:31 | XMS_ITS | Clinical Summary ---
Author Organization [facility] Address [address] [place] [address] Care Team Providers Care Paper Cone Drying Machine Operator Name Role Phone Sandi Alfaro CONTRACT PREPARER-METHODS SPECIALIST ENGINEER Primary Care Provider Source Comments [facility],non-owned Affiliates and Associated Physician Practices is amultiple site organization consisting of ambulatory clinics and hospital sitesin [place], [place]. This disclosure is being madepursuant to the Care Everywhere program and may not contain all information available regarding this patient. Last updated 17.[facility] Allergies No known active allergies Medications * [...] on file Legal Sex Male 5:35 PM GLASS VIAL BENDING CONVEYOR FEEDER Gender Identity Not on file Sexual Orientation [...] ORDERABLES F inal Result Performing Organization Address [facility] Co de Phone Number [address] [phone] * HEPATITIS C AB SCREEN RFLX NAAT [...] ORDERABLES Fi nal Result Performing Organization Address City/[facility]/ZIP Co de Phone Number [address] [address], [place] [phone] from Last 3 Months or Most Recently Relevant to Health Maintenance Insurance MEDICARE MEDICAID - OUT OF STATE MEDICARE MEDICAID [place] Advance Directives * Full Code (Latest Code Status on File) Date Activated Date Inactivated Comments 05/26/2018 2:01 PM 05/28/2018 11:56 AM Care Teams Paper Cone Drying Machine Operator Relationship Specialty Start Date End Date Sandi Alfaro APRN-METHODS SPECIALIST ENGINEER [address] [place] [id number] PCP - General 08/27/21
--- OUTSIDE RECORDS SUMMARY | 2024-10-16 15:31 | XMS_ITS | Encounter Summary ---
Author Organization [facility] Healthcare Address [address] [place] [address] Care Team Providers Care Costume Rental Clerk Name Role Phone Salo Forrest MD Primary Care Provider [phone]- [phone] Sandi Alfaro Primary Care Provider + Encounter Details Date Type Department Care Team (Late st Contact Info) Description 08/03/2017 Orders Only [facility] Health Information Management [address] [place] [address] Scanning, Provider Social History Tobacco Use Types Packs/Day Years Used Date Smoking Tobacco: Former Smokeless Tobacco: Never Alcohol Use Standard Drinks/Week Comments Yes 0 (1 standard drink = 0.6 oz pur e alcohol) Sex and Gender Information Value Date Recorded Sex Assigned at Not on file Legal Sex Male 3:15 AM GUEST RELATIONS EXECUTIVE Gender Identity Male 09/03/2018 6:22 AM CDT [...] on filedocumented in this encounter Care Teams Costume Rental Clerk Relationship Specialty Start Date End Date Salo Forrest MD [address] [place] [address] PCP - General 3/31/17 6/21/18 Sandi Alfaro PA [address] [place] [address] PCP - General Nurse Practitioner 08/21/17 documented as of this encounter
--- OUTSIDE RECORDS SUMMARY | 2024-10-16 15:31 | XMS_ITS | Encounter Summary ---
Author Organization [facility] Address [address] [place] [address] Care Team Providers Care Cooler Service Supervisor Name Role Phone Sandi Alfaro Primary Care Provider [phone] Sandi Alfaro Unavailable [phone] Cheryl Huston RN Unavailable Unavailable Encounter Details Date Type Department Care Team (Latest Contact Info) Description 10/26/2017 Abstract [facility] Medical Group Md, Shay Hughes MD Social [...] Sex Assigned at Male 03/31/2024 8:58 AM CLIENT PORTFOLIO MANAGER Legal Sex Male 8:01 PM CDT [...] Rule Out 05/03/2020 05/03/2020 05/03/2020 3:25 PM CLIENT PORTFOLIO MANAGER COVID-19 Rule Out 05/12/2023 05/12/2023 05/13/2023 12:01 AM CDT Influenza - Seasonal 05/14/2023 05/14/2023 024 12:32 AM CDT Respiratory Rule Out 09/19/2024 09/19/202409/19/2 025 5:40 PM CDT documented as of this encounter Care Teams Cooler Service Supervisor Relationship Specialty Start Date End Date Sandi Alfaro APNP Family & Internal Medicine [address] [address] PCP - General ADVANCED PRACTICE SURGERY TEACHER 04/28/17 Sandi Alfaro APNP [address] [place] [address] PCP - Med Group - MSSP Attributed Provider 03/02/15 03/01/22 Cheryl Huston, engine research engineer (Ambulatory) REGISTERED NURSE 03/23/19 documented as of this encounter
--- OUTSIDE RECORDS SUMMARY | 2024-10-16 15:31 | XMS_ITS | Encounter Summary ---
Author Organization [facility] Healthcare Address [address] [place] [address] Care Team Providers Care Group Insurance Specialist Name Role Phone Salo Forrest MD Primary Care Provider [phone]- [phone] Sandi Alfaro Primary Care Provider + Encounter Details Date Type Department Care Team (Late st Contact Info) Description 05/11/2017 Orders Only [facility] Health Information Management [address] [place] [address] Scanning, Provider Social History Tobacco Use Types Packs/Day Years Used Date Smoking Tobacco: Former Smokeless Tobacco: Never Alcohol Use Standard Drinks/Week Comments Yes 0 (1 standard drink = 0.6 oz pur e alcohol) Sex and Gender Information Value Date Recorded Sex Assigned at Not on file Legal Sex Male 3:15 AM PLANT MAINTENANCE TECHNICIAN Gender Identity Male 09/03/2018 6:22 AM [...] on filedocumented in this encounter Care Teams Group Insurance Specialist Relationship Specialty Start Date End Date Salo Forrest MD [address] [place] [address] PCP - General 05/30/16 08/20/17 Sandi Alfaro PA [address] [place] [address] PCP - General Nurse Practitioner 08/21/17 documented as of this encounter
--- OUTSIDE RECORDS SUMMARY | 2024-10-16 15:31 | XMS_ITS | Encounter Summary ---
Author Organization [facility] - [facility] Address [address] [place] [address] Care Team Providers Care Director Of Patient Care Name Role Phone Sandi Alfaro Primary Care Provider [phone] Cheryl Huston RN Unavailable Unavailable Encounter Details Date Type Department Care Team (Late st Contact Info) Description 08/18/2023 ASCENDANT MDX Message Enc [facility] Medical Group Multispecialty Care - [address] [place] [phone] [place], [facility] Provider Results Social History Tobacco Use Types Packs/Day Years Used Date Smoking Tobacco: Every Day Cigarettes 0.3 40 Smokeless Tobacco: Never Comments:currently smoking 2 -3 cigarettes a day Alcohol Use Standard Drinks/Week Comments Yes 0 (1 standard drink = 0.6 oz pur e alcohol) very rarely 6 beers/year [facility] Utilities Answer Date Recorded In the past [address] [facility] [employer], gas, oil, or water [employer] threatened to shut off services in your [...] any clubs o r organizations such as mandaeism groups, unions, fraternal or athletic groups, or [...] 0 05/21/2023 [facility] - Occupational Stress Questionnaire Answer Date [...] Sex Assigned at Male 03/31/2024 8:58 AM INDUSTRIAL ECOLOGIST Legal Sex Male 8:01 PM CDT Gender [...] documented as of this encounter Care Teams Director Of Patient Care Relationship Specialty Start Date End Date Sandi Alfaro APNP Family & Internal Medicine [address] [address] PCP - General ADVANCED PRACTICE BOOKING POLICE OFFICER 04/28/17 Cheryl Huston public safety officer (Ambulatory) REGISTERED NURSE 03/23/19 documented as of this encounter
--- OUTSIDE RECORDS SUMMARY | 2024-10-16 15:31 | XMS_ITS | Encounter Summary ---
Author Organization [facility] Address [address] [place] [address] Care Team Providers Care Pulpwood Dealer Name Role Phone Sandi Alfaro Primary Care Provider [phone] Cheryl Huston RN Unavailable Unavailable Encounter Details Date Type Department Care Team (Late st Contact Info) Description 08/27/2022 MyChart Message Enc [facility] Medical Group - [facility] [address] [place], [place] [address] [employer]hart, [facility] Provider Air Quality Message Social History [...] Sex Assigned at Male 03/31/2024 8:58 AM EXTENDED INSURANCE CLERK Legal Sex Male 8:01 PM CDT [...] documented as of this encounter Care Teams Pulpwood Dealer Relationship Specialty Start Date End Date Sandi Alfaro APNP Family & Internal Medicine [address] [address] PCP - General ADVANCED PRACTICE INSTRUMENTATION FITTER 04/28/17 Cheryl Huston, operations logistics analyst (Ambulatory) REGISTERED NURSE 03/23/19 documented as of this encounter
--- OUTSIDE RECORDS SUMMARY | 2024-10-16 15:31 | XMS_ITS | Encounter Summary ---
Author Organization [facility] Healthcare Address [address] [place] [address] Care Team Providers Care Book Packer Name Role Phone Sandi Alfaro Primary Care Provider + Encounter Details Date Type Department Care Team (Late st Contact Info) Description 07/20/2024 Orders Only [facility] Health Information Management [address] [place] [address] Scanning, Provider Social History Tobacco Use Types Packs/Day Years Used Date Smoking Tobacco: Some Days Cigarettes 0.3 15 Smokeless Tobacco: Never Alcohol Use Standard Drinks/Week Comments Yes 0 (1 standard drink = 0.6 oz pur e alcohol) Sex and Gender Information Value Date Recorded Sex Assigned at Not on file Legal Sex Male 3:15 AM APPLICATION DEVELOPMENT SPECIALIST Gender Identity Male 09/03/2018 6:22 AM [...] on filedocumented in this encounter Care Teams Book Packer Relationship Specialty Start Date End Date Sandi Alfaro PA PCP - General Nurse Practitioner 08/21/17 documented as of this encounter
--- OUTSIDE RECORDS SUMMARY | 2024-10-16 15:32 | XMS_ITS | Clinical Summary ---
Author Organization [facility] Address [address] [place] [address] Care Team Providers Care Label Cutter Name Role Phone Sandi Alfaro Primary Care Provider [phone] Cheryl Huston RN Unavailable Unavailable Allergies No [...] complication, without long-term current use of insulin ([facility]) USE 1 STRIP BY OTHER [...] ons:Dyslipidemia associated with type 2 diabetes mellitus ([facility]) Inject 3 mg into the skin once a week. 6 mL 11 024 Active meclizine (ANTIVERT) 25 MG tablet TAKE 1 TABLET BY MOUTH THREE TIMES A DAY NEEDED FOR DIZZINES 024 Active losartan (COZAAR) 100 MG tabletIndications :Hypertensive heart disease with congestive heart failure, unspecified heart failure type ([facility]),Primary hypertension TAKE 1 TABLET BY [...] MCG/ACT inhalerIndication s:Pulmonary emphysema, unspecified emphysema type ([facility]) Inhale 2 puffs into the [...] complication, without long-term current use of insulin ([facility]) TAKE 1 TABLET BY MOUTH [...] metFORMIN (GLUCOPHAGE) 1000 MG tabletIndications :Diabetic foot ([facility]) TAKE 1 TABLET BY MOUTH [...] metFORMIN (GLUCOPHAGE) 1000 MG tabletIndications :Diabetic foot ([facility]) TAKE 1 TABLET BY MOUTH [...] 03/31/2024 Polyneuropathy associated with underlying diseas e ([facility]) 12/16/2023 Morbid (severe) obesity due to excess calories 0 05/15/2022 Body mass index (BMI) 40.0-44.9, adult Acute hyperglycemia 05/17/2021 Anxiety 05/17/2021 Arthritis 05/17/2021 Atypical syncope 05/17/2021 Calculus of left ureter 05/17/2021 Eczema 05/17/2021 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/17/2021 FDC current use of anticoagulant therapy 0 05/17/2021 Peripheral neuropathy 05/17/2021 Rectal polyp 05/17/2021 Swelling of left lower extremity 05/17/2021 Tear of medial meniscus of knee 05/17/2021 Tobacco abuse 05/17/2021 Pain due to ureteral stent 05/17/2021 Cigarette nicotine dependence without complicati on 03/14/2019 Seasonal allergic rhinitis due to pollen 019 Chronic heart failure with p reserved ejection fraction ([facility]) 11/12/2018 Arthralgia of left hand 11/02/2018 Enchondroma of bone of hand, left 11/02/2018 Carpal tunnel syndrome on left 08/26/2018 Cryptogenic stroke ([facility]) 07/06/2018 Skin lesion of right arm 06/28/2018 Weakness 05/26/2018 Status post placement of implantable loop record er 10/13/2017 Overview (01/13/2018): Overview: [employer] Broadcast Reveal Loop Recorder. Dx; Cryptogenic Stroke. DOI 10/12/[address] Willoughby. [facility] remote monitoring. TIA (transient ischemic attack) 10/06/2017 Mild emphysema ([facility]) 08/28/2017 Hepatic steatosis 08/28/2017 Memory loss 05/18/2017 Chest pain 04/30/2017 S/P coronary artery stent placement 12/17/2016 Hemorrhoids 10/03/2016 Hearing loss 08/01/2016 Decreased hearing 07/17/2016 Chronic nausea 03/27/2016 Diabetic foot ([facility]) 03/10/2016 Abdominal wall bulge 03/10/2016 CHF (congestive heart failure) ([facility]) 01/14/2016 Peripheral edema 12/19/2015 Tinnitus 11/08/2015 History of kidney stones 10/03/2015 Insomnia 05/07/2015 Chronic cough 03/20/2015 Hypertensive heart disease w ith congestive heart failure (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) 02/21/20 15 Overview (01/13/2018): Overview: CVA, old, hemiparesis Dyslipidemia associated with type 2 diabetes mellitus ([facility]) 02/20/2015 Overview (01/13/2018): Overview: DM (diabetes mellitus) Overview: DM type 2 with diabetic dyslipidemia Mixed diabetic hyperlipidemi a associated with type 2 diabetes mellitus ([facility]) 02/20/2015 Overview (05/17/2021): DM type [...] Overview: HTN (hypertension), benign Cerebrovascular accident (CVA) ([facility]) 08/23/2013 Hyperlipidemia 08/23/2013 Resolved Problems Problem Noted Date Diagnosed Date Resolved Date Left nephrolithiasis 10/07/2017 018 Encounter for screening for lung cancer 04/09/2017 06/28/2018 BMI 45.0-49.9, adult 10/03/2016 023 Morbid obesity 08/13/2016 05/15/2022 Encounter for preventive health examination 08/23/2013 06/28/2018 Encounters Date Type Department Care Team Description 09/28/2024 Scan [facility] INFO SRVCS Scanned, [facility] Lab (SCAN) 09/19/2024 3:11 PM CDT - 09/19/2024 6:56 PM CDT Emergency [facility] Emergency Room [address] [place] [address] Aiden Mendiola MD Medical Problem (X 3 days ) Discharge Disposition: Home or Self Care (Routine Discharge) 09/19/2024 Travel 09/19/2024 Telephone [facility] [address] [phone] Sandi Alfaro APNP Information 09/10/2024 Scan [facility] HEALTH INFO SRVCS Scanned, [facility] CT (SCAN); Lab (SCAN) 08/30/2024 12:20 PM CDT Office Visit [address] [phone] Sandi Alfaro APNP TCM 08/30/2024 Travel 08/23/[address] [phone] Sandi Alfaro APNP TCM 08/19/2024 Scan [facility] INFO SRVCS Scanned, [facility] 08/18/2024 Scan [facility] INFO SRVCS Scanned, [facility] Image (SCAN); CT (SCAN); ECG (SCAN); Lab (SCAN) 08/17/2024 Telephone [facility] [address] [phone] Sandi Alfaro APNP Vomiting 08/08/2024 Telephone [facility] [address] [address] Sandi Alfaro APNP Refill Request 07/20/2024 Scan [facility] INFO SRVCS Scanned, [facility] Lab (SCAN) 07/19/2024 9:20 AM CDT Office Visit [address] [phone] Sandi Alfaro APNP Heart Problem 07/19/2024 Travel [...] pur e alcohol) very rarely 6 beers/year [employer] Answer Date Recorded In the past 12 months has e [employer], [facility], or water [email or web address] threatened to shut off services in your [...] often do you attend chur ch or baptism services? Never 05/12/2023 Do you belong to any clubs o r organizations such as spiritism groups, unions, fraternal or athletic groups, or [...] Recorded Patient Health Questionnaire-2 Score 0 03/31/2024 [facility] - [...] Sex Assigned at Male 03/31/2024 8:58 AM SQL ANALYST Legal Sex Male 8:01 PM CDT Gender [...] Vaccine: 50+ Years Completed 06/28/2021 PHQ-2 (Physician [place]) Completed 03/31/2024 Meningococcal B Vaccine Aged Out [...] complication, without long-term current use of insulin ([facility]) LIPID PANEL Routine 05/13/2023 6:00 AM CDT [...] - 75 ng/L 09/19/2024 6:34 PM CDT [facility] Comment: HIGH DOSES OF BIOTIN, TROPONIN-SPECIFIC AUTOANTIBODIES, AND ANTIBODY THERAPY CONTAINING HAMA MAY INTERFERE WITH THIS TEST RESULT. CORRELATION TO CLINICAL HISTORY AND PRESENTATION RECOMMENDED. 09/19/2024 6:05 PM CDT Aiden Mendiola MD LABORATORY Final Resul t [facility] [address] [place] [address], [place] [phone] * INFLUENZA A & B (09/19/2024 5:10 PM CDT) SPECIMEN TYPE NASOPHARYNGEAL SWAB 09/19/2024 5:18 PM CDT [facility] INFLUENZA A NEGATIVE NEGATIVE 09/19/2024 5:40 PM CDT [facility] INFLUENZA B NEGATIVE NEGATIVE 09/19/2024 5:40 PM CDT [facility] NASAL NASOPHARYNGEAL SWAB / Unknown 09/19/2024 5:10 PM CDT Aiden Mendiola MD MICROBIOLOGY - GENERAL LORENZA BULLARD Final Result Performing Organization Address City/[facility]/ZIP Co de Phone Number [facility] [address] [place] [address], [place] [phone] * RESP SYNCYTIAL VIRUS (09/19/2024 5:10 PM CDT) SPECIMEN TYPE NASOPHARYNGEAL SWAB 09/19/2024 5:16 PM CDT [facility] RAPID RSV NEGATIVE NEGATIVE 09/19/2024 5:40 PM CDT [facility] NASOPHARYNGEAL SWAB / Unknown 09/19/2024 5:10 PM CDT us Aiden Mendiola MD MICROBIOLOGY - GENERAL LORENZA BULLARD Final Result Performing Organization Address City/[facility] Co de Phone Number [facility] [address] [place] [address], [place] [phone] * XR CHEST PORTABLE (09/19/2024 5:01 PM CDT) Anatomical Region Laterality Modality Chest Radiographic Sandhya ging 09/19/2024 5:10 PM CDT Impressions 09/19/2024 5:11 PM CDT IMPRESSION: No radiographic evidence of active chest disease. Ordered By: AIDEN MENDIOLA Interpreted By: Tuan Morales MD, 09/19/2024 5:10 PM Narrative 09/19/2024 5:11 PM CDT [facility] [address] [place] [address] Examination: XR CHEST PORTABLE Exam time: 09/19/2024 5:00 PM Clinical history: Chest pain Comparison: 05/12/2023 AP chest Technique: AP upright view Findings: Multiple external wires and leads. Cardiac silhouette and pulmonary vasculature are within normal limits. Metallic density cardiac loop recorder projecting over the left heart border. No evidence of pleural effusion. No evidence of pneumothorax. Procedure Note Tuan Morales MD - 09/19/2024 [facility] [address] [place] [address] Examination: XR CHEST PORTABLE Exam time: 09/19/2024 [...] 36 <125 PG/ML 09/19/2024 5:06 PM CDT [facility] Comment: CUT POINTS ESTABLISHED BY INTERNATIONAL [...] Aiden Mendiola MD LABORATORY Final Resul t [facility] [address] [place] [address], [place] [phone] * (ABNORMAL) COMPREHENSIVE METABOLIC PANEL (09/19/2024 4:10 PM CDT) Pathologist [facility] GLUCOSE 212(H) 70 - 99 MG/DL 09/19/2024 5:06 PM CDT [facility] BUN 16 7 - 18 MG/DL 09/19/2024 5:06 PM CDT [facility] CREATININE S/P/B 1.37(H) 0.7 - 1.3 MG/DL 09/19/2024 5:06 PM CDT [facility] SODIUM S/P/B 138 136 - 145 MMOL/L 09/19/2024 5:06 PM CDT [facility] POTASSIUM S/P/B 3.7 3.5 - 5.1 MMOL/L 09/19/2024 5:06 PM CDT [facility] CHLORIDE S/P/B 103 100 - 108 MMOL/L 09/19/2024 5:06 PM CDT [facility] CO2 23.9 21 - 32 MMOL/L 09/19/2024 5:06 PM CDT [facility] CALCIUM S/P/B 8.7 8.5 - 10.1 MG/DL 09/19/2024 5:06 PM CDT [facility] BILIRUBIN TOTAL S/P/B 0.5 0.2 - 1.2 MG/DL 09/19/2024 5:06 PM CDT [facility] TOTAL PROTEIN S/P/B 7.3 6.4 - 8.2 G/DL 09/19/2024 5:06 PM CDT [facility] ALBUMIN S/P/B 3.6 3.4 - 5.0 G/DL 09/19/2024 5:06 PM CDT [facility] AST 24 15 - 37 U/L 09/19/2024 5:06 PM CDT [facility] ALT 47 16 - 60 U/L 09/19/2024 5:06 PM CDT [facility] ALKALINE PHOSPHATASE S/P/B 70 50 - 136 U/L 09/19/2024 5:06 PM CDT [facility] ANION GAP 11.1 5 - 15 MMOL/L 09/19/2024 5:06 PM CDT [facility] BUN CREATININE RATIO 11.7 6 - 26 09/19/2024 5:06 PM T [facility] A/G RATIO 1.0 1.0 - 2.0 RATIO 09/19/2024 5:06 PM T [facility] GFR ESTIMATE 57(L) >90 ML/MIN/1.7 3 M2 09/19/2024 5:06 PM T [facility] Comment: NOTE: eGFR is not calculated for patients <18 years of age. This is an estimated GFR calculation using the new CKD EPI creatinine equation without race and so does not require a correction factor for race. This estimated GFR should not be used for calculating drug doses. 09/19/2024 4:10 PM CDT us Aiden Mendiola MD LABORATORY Final Resul t [facility] [address] [place] [address], [place] [phone] * (ABNORMAL) CBC W/DIFF AUTOMATED (09/19/2024 4:10 PM CDT) WBC 7.27 4.4 - 11.0 x10'3/uL 09/19/2024 4:51 PM CDT [facility] RBC 4.43(L) 4.50 - 5.90 x10'6/uL 09/19/2024 4:51 PM CDT [facility] HGB 13.6(L) 14.0 - 17.5 G/DL 09/19/2024 4:51 PM CDT [facility] HCT 39.9(L) 41.5 - 50.4 % 09/19/2024 4:51 PM CDT [facility] MCV 90.1 80.0 - 96.0 FL 09/19/2024 4:51 PM CDT [facility] MCH 30.7 26.5 - 31.4 PG 09/19/2024 4:51 PM CDT [facility] MCHC 34.1 31.9 - 34.8 G/DL 09/19/2024 4:51 PM CDT [facility] RDW 13.3 12.3 - 14.3 % 09/19/2024 4:51 PM CDT [facility] PLT 135(L) 151 - 353 x10'3/uL 09/19/2024 4:51 PM CDT [facility] MPV 11.3 9.7 - 11.9 FL 09/19/2024 4:51 PM CDT [facility] RBC MORPHOLOGY NORMAL 09/19/2024 4:51 PM CDT [facility] PLT MORPH. NORMAL 09/19/2024 4:51 PM CDT [facility] WBC MORPHOLOGY NORMAL 09/19/2024 4:51 PM CDT [facility] LYMPHOCYTES % 16.0 15.8 - 45.0 % 09/19/2024 4:51 PM CDT [facility] NEUTROPHILS % 71.9 42.1 - 71.9 % 09/19/2024 4:51 PM CDT [facility] MONOCYTES % 9.6 5.7 - 12.5 % 09/19/2024 4:51 PM CDT [facility] EOSINOPHILS 2.1 0.0 - 5.6 % 09/19/2024 4:51 PM CDT [facility] BASOPHILS 0.1 0.0 - 1.3 % 09/19/2024 4:51 PM CDT [facility] ABS. NEUTROPHILS 5.23 1.40 - 6.00 x10'3/uL 09/19/2024 4:51 PM CDT [facility] IMMATURE GRANS % 0.3 0.0 - 0.5 % 09/19/2024 4:51 PM CDT [facility] ABS. LYMPHOCYTES 1.16 0.80 - 4.70 x10'3/uL 09/19/2024 4:51 PM CDT [facility] 09/19/2024 4:10 PM CDT us Aiden Mendiola MD LABORATORY Final Resul t [facility] [address] [place] [phone], * ECG 12 lead (09/19/2024 3:58 PM CDT) 09/19/2024 3:58 PM CDT Narrative [facility] ([facility]) RAD - 09/21/2024 7:24 AM CDT [facility] Test Date: 2024-09-19 Pat Name: KLAUDIA HALEY Department: 85 Room: [place] [address] Gender: Male Vp Packaging: : 1960 Requested By: AIDEN MENDIOLA Order Number: [id number] Reading MD: Baron Sanchez Measurements Intervals [place] Rate: 79 P: 23 UT: 171 QRS: 2 QRSD: 165 T: 21 QT: 408 QTc: 469 Interpretive Statements SINUS RHYTHM RIGHT BUNDLE BRANCH BLOCK [120+ ms QRS DURATION, UPRIGHT V1, 40+ ms S IN I/aVL/V4/V5/V6] Compared to ECG 05/12/2023 16:05:34 No significant changes Procedure Note Baron Sanchez MD - 09/21/2024 [facility] Test Date: 2024-09-19 Pat Name: KLAUDIA HALEY Department: 85 Room: [place] [address] Gender: Male Vp Packaging: : 1960 Requested By: AIDEN MENDIOLA Order Number: [id number] Reading MD: Baron Sanchez Measurements Intervals [place] Rate: 79 P: 23 UT: 171 QRS: 2 QRSD: 165 T: 21 QT: 408 QTc: 469 Interpretive Statements SINUS RHYTHM RIGHT BUNDLE BRANCH BLOCK [120+ ms QRS DURATION, UPRIGHT V1, 40+ ms SIN I/aVL/V4/V5/V6] Compared to ECG 05/12/2023 16:05:34 No significant changes us Aiden Mendiola MD ECG ORDERABLES Final Resul t [facility] ([facility]) RAD * CT GENERIC (09/10/2024) Only the most recent of3 resultswithin the time period is included. Anatomical Region Laterality Modality Other 09/10/2024 us [facility] Scanned SCANNING Final Resu lt * ECG GENERIC (SCAN ORDER) (08/18/2024) 08/18/2024 [facility] Scanned SCANNING Final Resu lt * IMAGE GENERIC (08/18/2024) Only the most recent of2 resultswithin the time period is included. Anatomical Region Laterality Modality Other 08/18/2024 [facility] Group Scanned SCANNING Final Resu lt * DIABETIC RETINOPATHY EXAM (NEGATIVE) (04/27/2024) [facility] Group Scanned SCANNING Final Resu lt Performing Organization Address City/[facility]/ZIP Co de Phone Number [facility] * HEMOGLOBIN, GLYCOSYLATED (02/05/2024) HGB A1C 6.5 % [facility] 02/05/2024 Sandi WAGNERNP LABORATORY Final Resul t Performing Organization Address [facility]/ZIP Co de Phone Number [facility] [address] [place] [address], [place] * (ABNORMAL) LIPID PANEL (05/13/2023 6:00 AM CDT) CHOLESTEROL 87 <200 MG/DL 05/13/2023 7:18 AM CDT [facility] TRIGLYCERIDES 213(H) <150 MG/DL 05/13/2023 7:18 AM CDT [facility] HDL 24(L) >40.0 MG/DL 05/13/2023 7:18 AM CDT [facility] LDL (CALCULATED) 20 <100 MG/DL 05/13/2023 7:18 AM CDT [facility] NON HDL CHOLESTEROL 63 <130 MG/DL 05/13/2023 7:18 AM CDT [facility] CHOL/HDL RATIO 3.6 0.0 - 4.5 05/13/2023 7:18 AM CDT [facility] VLDL CALCULATION 43 5 - 55 MG/DL 05/13/2023 7:18 AM CDT [facility] LIPID INTERPRETATION 05/13/2023 7:18 AM CDT [facility] Comment: [facility] REPORT RECOMMENDATIONS: ADULT CHILD LOW RISK: CHOLESTEROL <200 <170 TRIGLYCERIDE <150 --- HDL >=60 --- LDL <100 <110 BORDERLINE: CHOLESTEROL 200-239 170-199 TRIGLYCERIDE 150-199 --- HDL 40-59 --- LDL 100-159 110-129 HIGH RISK: CHOLESTEROL >=240 >=200 TRIGLYCERIDE >=200 --- HDL <40 --- LDL >=160 >=130 05/13/2023 6:00 AM CDT Ayanna Bellamy MD LABORATORY Final Re sult [facility] [address] [place] [address], * HEPATITIS C ANTIBODY W/RFX TO HCV RNA ([facility] ONLY) (06/28/2021 11:22 AM CDT) HEPATITIS C AB NON-REACTI VE NON-REACT ARETHA [facility] SIGNAL TO CUTOFF 0.01 <[address] [facility] Comment: HCV antibody was non-reactive. There is no laboratory evidence of HCV infection. In most cases, no further action is required. However, if recent HCV exposure is suspected, a test for HCV RNA (test code 67962) is suggested. For additional information please refer to http://education.[employer]/faq/JDJ64d6 (This link is being provided for informational/ educational purposes only.) 06/28/2021 11:2 2 AM CDT 06/29/2021 10:18 AM CDT us Sandi Alfaro APJOVITA LABORATORY Final Resul t [facility] [address] [place] [phone] * CT CHEST WO CONT LOW DOSE [...] As above. Thank you for choosing the [facility]'s Lung Screening Program. Referred By: NICK GRAYSON [...] in the left lung base posteriorly. Implanted site monitor device within the left chest subcutaneous [...] As above. Thank you for choosing the [facility]'s Lung ScreeningProgram. Referred By: NICK GRAYSON Interpreted [...] 11:13 PM 05/01/2017 6:00 PM Care Teams Label Cutter Relationship Specialty Start Date End Date Sandi Alfaro APNP [place] [facility] [place] [address] PCP - General [employer] 04/28/17 Cheryl Huston sales and service engineer (Ambulatory) REGISTERED NURSE 03/23/19
[2024-10-16 15:50] LABS: Hematocrit 39.9 % (42.0-52.0); Hemoglobin 13.5 g/dL (14.0-18.0); Immature Granulocyte Percent A 0.3 % (0-0.5); Immature Platelet Fraction Pct 5.0 % (0.9-11.2); Lymphocytes Absolute Auto 1.09 K/mm3 (0.9-3.2); Mean Corpuscular HGB Conc 33.8 g/dl (32-36); Mean Corpuscular Hemoglobin 30.2 pg (26-34); Mean Corpuscular Volume 89.3 fl (80-100); Nucleated Red Blood Cells Absolute Auto 0.000 K/mm3 (0.0-0.012); Nucleated Red Blood Cells Perc 0.0 % (0.0-0.2); Platelet Count Result 131 k/mm3 (150-375); Red Blood Count 4.47 M/mm3 (4.6-6.20); White Blood Count 5.8 K/mm3 (4.5-10.0)
[2024-10-16 16:06] LABS: Alanine Aminotransferase 41 U/L (6-50); Albumin Level 4.1 g/dL (3.5-5.1); Alkaline Phosphatase 65 U/L (38-126); Anion Gap 11 mmol/L (4-12); Aspartate Amino Transferase 34 U/L (17-59); Bilirubin,Total 0.7 mg/dL (0.2-1.3); Blood Urea Nitrogen 14 mg/dL (9-20); Calcium 9.1 mg/dL (8.4-10.2); Carbon Dioxide 19 mmol/L (22-30); Chloride 106 mmol/L (98-107); Estimated CRCL calculation 98 ml/min; Estimated Glomerular Filt Rate > 60; Glucose 134 mg/dL (65-110); INR 1.2; Lipase 160 U/L (23-300); Potassium 4.3 mmol/L (3.4-5.0); Prothrombin Time 15.3 Seconds (11.1-14.7); Sodium 136 mmol/L (137-145); Total Protein 7.2 g/dL (6.3-8.2)
[2024-10-16 16:07] LABS: Partial Thromboplastin Time 31.6 Seconds (22.3-36.8)
[2024-10-16 16:17] LABS: Troponin I < 0.012 ng/mL (0.000-0.034)
--- NOTE | 2024-10-16 16:34 | ED_ITS ---
HPI - Chest Pain General Chief Complaint: Chest Pain <Alexandra Saleem PA-C - Last Filed: 10/16/24 19:11> Stated Complaint: cp <Alexandra Saleem PA-C - Last Filed: 10/16/24 19:11> Time Seen by Provider: 10/16/24 15:12 <Alexandra Saleem PA-C - Last Filed: 10/16/24 19:11> Source: patient <SURESH Patel Last Filed: 10/16/24 19:11> Mode of arrival: ambulatory <SURESH Patel Last Filed: 10/16/24 19:11> Limitations: no limitations <Alexandra Saleem PA-C - Last Filed: 10/16/24 19:11> History of Present Illness HPI narrative: This is a 64 year old male that presents to the ER for substernal chest discomfort. Ongoing since earlier today. Reports radiation to his jaw. Initially had relief with nitro, but his pain returned. History of CAD, stent placement earlier this year. Reports some shortness of breath. <SURESH Patel Last Filed: 10/16/24 19:11> Related Data Home Medications: Home Medications ?Medication ?Instructions ?Recorded ?Confirmed ?Last Taken ?Type amlodipine 10 mg tablet 10 mg PO DAILY 01/24/19 09/28/24 08/16/24 History bupropion HCl 150 mg tablet,12 hr 150 mg PO Q12H 01/24/19 09/28/24 08/16/24 History sustained-release (Wellbutrin SR) metformin 1,000 mg tablet 1,000 mg PO BID 01/24/19 09/28/24 08/16/24 History isosorbide mononitrate 60 mg 120 mg PO DAILY 01/09/20 09/28/24 08/16/24 History tablet,extended release 24 hr alprazolam 0.25 mg tablet 0.25 mg PO HS 08/21/21 09/28/24 08/16/24 History aspirin 81 mg chewable tablet 81 mg PO DAILY 09/29/21 09/28/24 08/16/24 History (Children's Aspirin) atorvastatin 80 mg tablet 80 mg PO DAILY 0409/28/24 08/16/24 History dulaglutide 3 mg/0.5 mL 3 mg subcut WEEKLY 06/13/24 09/28/24 08/16/24 History subcutaneous pen injector (Trulicity) furosemide 40 mg tablet 40 mg PO DAILY 06/13/24 09/28/24 08/16/24 History budesonide 160 mcg-glycopyr 9 2 inh inhalation BID 06/28/24 09/28/24 08/16/24 History mcg-formot 4.8 mcg/actuation HFA inhaler (Breztri Aerosphere) rivaroxaban 2.5 mg tablet (Xarelto) 2.5 mg PO Q12H 07/12/24 09/28/24 08/16/24 History doxazosin 2 mg tablet 2 mg PO HS 08/19/24 09/28/24 08/16/24 History losartan 100 mg tablet mg 09/10/24 09/28/24 Unknown History <Alexandra Saleem PA-C - Last Filed: 10/16/24 19:11> Allergies/Adverse Reactions: Allergies Allergy/AdvReac Type Severity Reaction Status Date / Time No Known Allergies Allergy Unknown Verified 09/28/24 14:52 <Alexandra Saleem PA-C - Last Filed: 10/16/24 19:11> Review of Systems 2 Review of Systems: All systems reviewed & are unremarkable except as noted in HPI and below <Alexandra Saleem PA-C - Last Filed: 10/16/24 19:11> [facility] Past Medical History Medical History: Medical History Thrombocytopenia Hypertension Coronary artery disease Stent to the distal circumflex and Left anterior descending in 2014. Left anterior descending stent in 04/2015. COVID Transient ischemic attack Diabetic peripheral neuropathy Peripheral vascular disease Deep venous thrombosis Gastric ulcer Obstructive sleep apnea on CPAP Hyperlipidemia Type 2 diabetes mellitus Gastroesophageal reflux disease Chronic obstructive pulmonary disease Cerebrovascular accident Mild left-sided weakness. Congestive heart failure BMI greater than 40 Chronic anticoagulation Hydronephrosis Psoriasis Depression Fracture of fifth toe, right, closed Kidney stones Pneumonia Myocardial infarction Seasonal allergies <Alexandra Saleem PA-C - Last Filed: 10/16/24 19:11> Surgical History Surgical History: Surgical History History of coronary artery stent placement History of tonsillectomy History of cholecystectomy History of lithotripsy History of rectal polypectomy History of cardiac catheterization 2 stents <Alexandra Saleem PA-C - Last Filed: 10/16/24 19:11> Family History Family History: Family History Mother Diabetes mellitus Arthritis Kidney stones Coronary artery disease Father Acute myocardial infarction Heart disease Kidney stones Hypertension Coronary artery disease Sibling Coronary artery disease Heart disease Hx of CABG <Alexandra Saleem PA-C - Last Filed: 10/16/24 19:11> Social History Social History: Social History Social History: Surrogate decision maker: eRna Dodd, friend. Code status: Full code. Smoking packs per day: 1 Smoking cigarettes per day: 20.0 Years smoked: 47 Smoking pack-years: 47.00 Smoking status: Former smoker Tobacco type: cigarettes Second hand tobacco smoke exposure: Yes Smoking end date: 02/22/24 Alcohol intake: never Drinks per week: 0 Substance use: never Substance use type: does not use Last use: 10/01/2023 Do You Feel Safe in your Home?: Yes Lack of Transportation: No Lack of Food: Never True Current Housing: I Have Housing Concerned About Future Housing: No Difficulty Paying Gas/Electric Bills: No Difficulty Paying for Meds: No Currently Unemployed: No Education: Decline to Answer Difficulty w/ Childcare or Family Care: No Living arrangements: with roommate(s) Additional living arrangements comments: The patient lives in [place] with a roommate. He has no children. Occupation/Education: other Additional occupation/education comments: Disabled. Spiritual care concerns: No <Alexandra Saleem PA-C - Last Filed: 10/16/24 19:11> Exam 2 Narrative: GENERAL: Well-appearing, well-nourished, and in no acute distress. HEAD: Normocephalic, atraumatic. EYES: EOMI. CHEST: Clear to auscultation. No respiratory distress. No wheezes rales or rhonchi HEART: Regular rate and rhythm. No murmur heard. Normal peripheral pulses. EXTREMITIES: Normal range of motion. No edema. SKIN: Warm, dry, no rash. NEURO: No focal deficits. Alert and oriented x3. PSYCH: Normal mood and affect <Alexandra Saleem PA-C - Last Filed: 10/16/24 19:11> Course Course Emergency Course: Patient updated on his workup and recommendation for admission <Alexandra Saleem PA-C - Last Filed: 10/16/24 19:11> STEWARD DISHWASHER/PA Physician Supervision This visit was performed by both a physician and an APC. I performed all aspects of the MDM as documented. <Caleb Azul MD - Last Filed: 10/16/24 20:27> Consultations Consultation #1: Spoke with hospitalist about patient and workup who accepts admission < Alexandra Saleem PA-C - Last Filed: 10/16/24 19:11> Date: 10/16/24 <Alexandra Saleem PA-C - Last Filed: 10/16/24 19:11> Vital Signs Vital signs: Vital Signs Temperature 97.4 F L 10/16/24 15:12 Pulse Rate 77 10/16/24 15:12 Respiratory Rate 18 10/16/24 15:12 Blood Pressure 135/78 10/16/24 15:12 Pulse Oximetry 97 10/16/24 15:12 Oxygen Delivery Room Air 10/16/24 15:12 Temperature 97.8 F 10/16/24 18:32 Pulse Rate 77 10/16/24 19:35 Respiratory Rate 16 10/16/24 19:35 Blood Pressure 133/86 10/16/24 19:35 Pulse Oximetry 97 10/16/24 19:35 Oxygen Delivery Room Air 10/16/24 15:12 <Alexandra Saleem PA-C - Last Filed: 10/16/24 19:11> Vital Signs Temperature 97.4 F L 10/16/24 15:12 Pulse Rate 77 10/16/24 15:12 Respiratory Rate 18 10/16/24 15:12 Blood Pressure 135/78 10/16/24 15:12 Pulse Oximetry 97 10/16/24 15:12 Oxygen Delivery Room Air 10/16/24 15:12 Temperature 97.8 F 10/16/24 18:32 Pulse Rate 77 10/16/24 19:35 Respiratory Rate 16 10/16/24 19:35 Blood Pressure 133/86 10/16/24 19:35 Pulse Oximetry 97 10/16/24 19:35 Oxygen Delivery Room Air 10/16/24 15:12 <Caleb Azul MD - Last Filed: 10/16/24 20:27> MDM - Chest Pain MDM Narrative Medical decision making narrative: Patient presents emergency department for chest pain. Ongoing since earlier today. Reports relief with his nitro initially, but then pain returned. History of coronary artery disease. His vitals are stable. Cbc and metabolic and panel without concerning findings. EKG without acute ST changes, his baseline troponin is negative. Chest x-ray showing moderate left-sided pleural effusion. BNP is not elevated. His heart score is 6. Will be admitted for further management <Alexandra Saleem PA-C - Last Filed: 10/16/24 19:11> Differential Diagnosis Differential diagnosis: Likely stable angina, unstable angina pectoris and other (NSTEMI, CHF) < Alexandra Saleem PA-C - Last Filed: 10/16/24 19:11> Lab Data Attestation: I reviewed the patient's lab results. <Alexandra Saleem PA-C - Last Filed: 10/16/24 19:11> Result diagrams: 10/16/24 15:39 10/16/24 15:39 <Alexandra Saleem PA-C - Last Filed: 10/16/24 19:11> Labs: Lab Results 10/16/24 10/16/24 Range/Units 15:38 15:39 WBC 5.8 (4.5-10.0) K/mm3 RBC 4.47 L (4.6-6.20) M/mm3 Hgb 13.5 L (14.0-18.0) g/dL Hct 39.9 L (42.0-52.0) % MCV 89.3 (80-100) fl MCH 30.2 (26-34) pg MCHC 33.8 (32-36) g/dl RDW 13.8 (11.5-14.5) % Plt Count 131 L (150-375) k/mm3 MPV 10.9 H (7.4-10.4) fl Immature Gran % (Auto) 0.3 (0-0.5) % Neut % (Auto) 68.6 (45.5-73.1) % Lymph % (Auto) 18.9 (18.3-44.2) % Davison % (Auto) 8.8 H (2.6-8.5) % Eos % (Auto) 3.1 (0-4.4) % Baso % (Auto) 0.3 (0.2-1.2) % Lymph # (Auto) 1.09 (0.9-3.2) K/mm3 Davison # (Auto) 0.5 (0.1-0.6) K/mm3 Eos # (Auto) 0.2 (0-0.3) K/mm3 Baso # (Auto) 0.0 (0.0-0.1) K/mm3 Abs Immat Gran (auto) 0.02 (0.00-0.031) K/mm3 Absolute Neuts (auto) 4.0 (1.3-6.7) K/mm3 Absolute Nucleated RBC 0.000 (0.0-0.012) K/mm3 Nucleated RBC % 0.0 (0.0-0.2) % % Immature Plt Fraction 5.0 (0.9-11.2) % PT 15.3 H (11.1-14.7) Seconds INR 1.2 APTT 31.6 (22.3-36.8) Seconds Sodium 136 L (137-145) mmol/L Potassium 4.3 (3.4-5.0) mmol/L Chloride 106 (98-107) mmol/L Carbon Dioxide 19 L (22-30) mmol/L Anion Gap 11 (4-12) mmol/L BUN 14 (9-20) mg/dL Creatinine 0.94 (0.7-1.3) mg/dL Estim Creat Clear Calc 98 ml/min Estimated GFR > 60 (59 - ) Glucose 134 H (65-110) mg/dL Calcium 9.1 (8.4-10.2) mg/dL Total Bilirubin 0.7 (0.2-1.3) mg/dL AST 34 (17-59) U/L ALT 41 (6-50) U/L Alkaline Phosphatase 65 (38-126) U/L Troponin I < 0.012 (0.000-0.034) ng/mL NT-Pro-B Natriuret Pep 48 (19.9-100) pg/mL Total Protein 7.2 (6.3-8.2) g/dL Albumin 4.1 (3.5-5.1) g/dL Lipase 160 (23-300) U/L <Alexandra Saleem PA-C - Last Filed: 10/16/24 19:11> Lab Results 10/16/24 10/16/24 Range/Units 15:38 15:39 WBC 5.8 (4.5-10.0) K/mm3 RBC 4.47 L (4.6-6.20) M/mm3 Hgb 13.5 L (14.0-18.0) g/dL Hct 39.9 L (42.0-52.0) % MCV 89.3 (80-100) fl MCH 30.2 (26-34) pg MCHC 33.8 (32-36) g/dl RDW 13.8 (11.5-14.5) % Plt Count 131 L (150-375) k/mm3 MPV 10.9 H (7.4-10.4) fl Immature Gran % (Auto) 0.3 (0-0.5) % Neut % (Auto) 68.6 (45.5-73.1) % Lymph % (Auto) 18.9 (18.3-44.2) % Davison % (Auto) 8.8 H (2.6-8.5) % Eos % (Auto) 3.1 (0-4.4) % Baso % (Auto) 0.3 (0.2-1.2) % Lymph # (Auto) 1.09 (0.9-3.2) K/mm3 Davison # (Auto) 0.5 (0.1-0.6) K/mm3 Eos # (Auto) 0.2 (0-0.3) K/mm3 Baso # (Auto) 0.0 (0.0-0.1) K/mm3 Abs Immat Gran (auto) 0.02 (0.00-0.031) K/mm3 Absolute Neuts (auto) 4.0 (1.3-6.7) K/mm3 Absolute Nucleated RBC 0.000 (0.0-0.012) K/mm3 Nucleated RBC % 0.0 (0.0-0.2) % % Immature Plt Fraction 5.0 (0.9-11.2) % PT 15.3 H (11.1-14.7) Seconds INR 1.2 APTT 31.6 (22.3-36.8) Seconds Sodium 136 L (137-145) mmol/L Potassium 4.3 (3.4-5.0) mmol/L Chloride 106 (98-107) mmol/L Carbon Dioxide 19 L (22-30) mmol/L Anion Gap 11 (4-12) mmol/L BUN 14 (9-20) mg/dL Creatinine 0.94 (0.7-1.3) mg/dL Estim Creat Clear Calc 98 ml/min Estimated GFR > 60 (59 - ) Glucose 134 H (65-110) mg/dL Calcium 9.1 (8.4-10.2) mg/dL Total Bilirubin 0.7 (0.2-1.3) mg/dL AST 34 (17-59) U/L ALT 41 (6-50) U/L Alkaline Phosphatase 65 (38-126) U/L Troponin I < 0.012 (0.000-0.034) ng/mL NT-Pro-B Natriuret Pep 48 (19.9-100) pg/mL Total Protein 7.2 (6.3-8.2) g/dL Albumin 4.1 (3.5-5.1) g/dL Lipase 160 (23-300) U/L <Caleb Azul MD - Last Filed: 10/16/24 20:27> Imaging Data Radiologist's impression: ITS Impressions Chest X-Ray 10/16/24 16:30 IMPRESSION: Moderate left-sided pleural effusion without focal infiltrate identified. <Alexandra Saleem PA-C - Last Filed: 10/16/24 19:11> ECG Data EKG #1: ECG completion date: 10/16/24 <Alexandra Saleem PA-C - Last Filed: 10/16/24 19:11> EKG Interpretation: normal rate, sinus rhythm, no ST changes, RBBB and normal QT <Alexandra Saleem PA-C - Last Filed: 10/16/24 19:11> Critical Care Time Critical Care Time Critical Care Time: No <Alexandra Saleem PA-C - Last Filed: 10/16/24 19:11> Discharge Plan Discharge Clinical Impression: Chest pain Qualifiers: Chest pain type: unspecified Qualified Code(s): R07.9 - Chest pain, unspecified <Alexandra Saleem PA-C - Last Filed: 10/16/24 19:11> Patient Disposition: Still a Patient <Alexandra Saleem PA-C - Last Filed: 10/16/24 19:11> Condition: Stable <Alexandra Saleem PA-C - Last Filed: 10/16/24 19:11> Quality HEART score for chest pain patients History: moderately suspicious <Alexandra Saleem PA-C - Last Filed: 10/16/24 19:11> ECG: non specific repolarization disturbance/LBTB/PM <Alexandra Saleem PA-C - Last Filed: 10/16/24 19:11> Age: > or = to 65 years <Alexandra Saleem PA-C - Last Filed: 10/16/24 19:11> Risk factors: > or = to 3 risk factors of atherosclerotic disease <Alexandra Saleem PA-C - Last Filed: 10/16/24 19:11> Troponin: < or = to 1x normal limit <Alexandra Saleem PA-C - Last Filed: 10/16/24 19:11> Heart score: 6 <Alexandra Saleem PA-C - Last Filed: 10/16/24 19:11> 6 <Caleb Azul MD - Last Filed: 10/16/24 20:27>
[2024-10-16] MEDS: MORPHINE SULFATE (*CRX) 4 MG/ML INJ IV PUSH (17:04)
[2024-10-16] MEDS: ONDANSETRON INJ 4 MG/2 ML VIAL IV PUSH (17:04)
[2024-10-16 18:05] LABS: NT Pro B Type Natriuretic Pept 48 pg/mL (19.9-100)
--- NOTE | 2024-10-16 18:18 | ECG_ITS ---
Test Date: 2024-10-16 18:32:15 Measurements Intervals [place] Rate: 76 P: 5 CO: 154 QRS: 18 QRSD: 153 T: 5 QT: 415 QTc: 468 Interpretive Statements SINUS RHYTHM RIGHT BUNDLE BRANCH BLOCK CONSIDER INFERIOR INFARCT, AGE INDETERMINATE BASELINE ARTIFACT- V4-V6 ABNORMAL ECG Compared to ECG 10/16/2024 15:15:49 NO SIGNIFICANT CHANGE Electronically Signed On 10-16-2024 20:20:43 CDT by Mathew Landon D.O.
[2024-10-16 19:22] LABS: Troponin I < 0.012 ng/mL (0.000-0.034)
--- NOTE | 2024-10-16 19:23 | P.HP_ITS ---
H&P: HPI History of Present Illness Date/Time: 10/16/24 19:23 Chief Complaint: Chest Pain Narrative: 64 y/o M with PMH coronary artery disease status post PCI now x3, TIA, hypertension, peripheral neuropathy, type 2 diabetes mellitus, DVT, peptic ulcer disease, hyperlipidemia, sleep apnea, GERD, COPD, heart failure, depression, and former smoker presents here with chest pain. The patient presents here from home on 10/16 for further evaluation chest pain. He reports onset of left-sided chest pain this morning around 7-730 from his sleep. The patient took 4 sublingual nitro over the course of the morning which resolved his chest pain. Pain would resolve for around an hour before returning prompting him to take another nitro. He described the chest pain as sharp, radiation from his jaw into his neck and then eventually into his chest, intermittent, aggravated by stress, and alleviated by nitro. He endorses associated dizziness and shortness of breath. He is currently on Plavix and Xarelto. He has a history of coronary artery disease with prior PCI to pLAD, mLAD and LCX. Most recent cardiac catheterization in June of 2024 which showed stable coronary artery disease compared to prior angiogram with patent stents in LAD and LCX with slow flow noted in initial RCA angiogram. Patient is currently undergoing cardiac rehab. Initial VS at presentation: 97.4? F, HR 77, R 18, 135/78, and 97% on RA. ED workup showed: No leukocytosis, hemoglobin 13.5, INR 1 point 2, sodium 136, creatinine 0.94 and GFR >60, glucose 134, initial troponin negative x2, BNP 48. CXR showed a moderate left-sided pleural effusion without focal infiltrate. Initial EKG showed sinus rhythm, right bundle branch block, rate 74. Repeat appeared largely unchanged per my interpretation. Review of Systems Review of Systems: All systems reviewed & are unremarkable except as noted in HPI and below [facility] Past Medical History Medical History Thrombocytopenia Hypertension Coronary artery disease Stent to the distal circumflex and Left anterior descending in 2014. Left anterior descending stent in 04/2015. COVID Transient ischemic attack Diabetic peripheral neuropathy Peripheral vascular disease Deep venous thrombosis Gastric ulcer Obstructive sleep apnea on CPAP Hyperlipidemia Type 2 diabetes mellitus Gastroesophageal reflux disease Chronic obstructive pulmonary disease Cerebrovascular accident Mild left-sided weakness. Congestive heart failure BMI greater than 40 Chronic anticoagulation Hydronephrosis Psoriasis Depression Fracture of fifth toe, right, closed Kidney stones Pneumonia Myocardial infarction Seasonal allergies Surgical History Surgical History History of coronary artery stent placement History of tonsillectomy History of cholecystectomy History of lithotripsy History of rectal polypectomy History of cardiac catheterization 2 stents Family History Family History Mother Diabetes mellitus Arthritis Kidney stones Coronary artery disease Father Acute myocardial infarction Heart disease Kidney stones Hypertension Coronary artery disease Sibling Coronary artery disease Heart disease Hx of CABG Social History Social History Social History: Surrogate decision maker: Rena Dodd, friend. Code status: Full code. Smoking packs per day: 1 Smoking cigarettes per day: 20.0 Years smoked: 47 Smoking pack-years: 47.00 Smoking status: Former smoker Tobacco type: cigarettes Second hand tobacco smoke exposure: Yes Smoking end date: 02/22/24 Alcohol intake: former Drinks per week: 0 Substance use: never Substance use type: does not use Last use: 10/01/2023 Do You Feel Safe in your Home?: Yes Lack of Transportation: No Lack of Food: Never True Current Housing: I Have Housing Concerned About Future Housing: No Difficulty Paying Gas/Electric Bills: No Difficulty Paying for Meds: No Currently Unemployed: No Education: High School Diploma/GED Difficulty w/ Childcare or Family Care: No Living arrangements: with roommate(s) Additional living arrangements comments: The patient lives in [place] with a roommate. He has no children. Occupation/Education: other Additional occupation/education comments: Disabled. Spiritual care concerns: No Meds Home Medications and Allergies Home Medications ?Medication ?Instructions ?Recorded ?Confirmed ?Type amlodipine 10 mg tablet 10 mg PO DAILY 01/24/19 10/16/24 History bupropion HCl 150 mg tablet,12 hr 150 mg PO Q12H 01/24/19 10/16/24 History sustained-release (Wellbutrin SR) metformin 1,000 mg tablet 1,000 mg PO BID 01/24/19 10/16/24 History isosorbide mononitrate 60 mg 120 mg PO DAILY 01/09/20 10/16/24 History tablet,extended release 24 hr alprazolam 0.25 mg tablet 0.25 mg PO HS 08/21/21 10/16/24 History carvedilol 12.5 mg tablet (Coreg) 12.5 mg PO Q12HR #60 tabs 05/04/24 10/16/24 Rx empagliflozin 10 mg tablet 10 mg PO DAILY #30 tabs 05/04/24 10/16/24 Rx (Jardiance) nitroglycerin 0.4 mg sublingual 0.4 mg sublingual Q5MIN PRN Chest 05/04/24 10/16/24 Rx tablet (Nitrostat) Pain #26 tabs omeprazole 40 mg capsule,delayed 40 mg PO DAILY #30 caps 05/04/24 10/16/24 Rx release tamsulosin 0.4 mg capsule 0.4 mg PO HS #30 caps 05/04/24 10/16/24 Rx atorvastatin 80 mg tablet 80 mg PO DAILY 06/13/24 10/16/24 History dulaglutide 3 mg/0.5 mL 3 mg subcut WEEKLY 06/13/24 10/16/24 History subcutaneous pen injector (Trulicity) furosemide 40 mg tablet 40 mg PO DAILY 06/13/24 10/16/24 History clopidogrel 75 mg tablet 75 mg PO QAM #30 tabs 06/17/24 10/16/24 Rx budesonide 160 mcg-glycopyr 9 2 inh inhalation BID 06/28/24 10/16/24 History mcg-formot 4.8 mcg/actuation HFA inhaler (Breztri Aerosphere) sacubitril 24 mg-valsartan 26 mg 1 tab PO Q12HR #30 tabs 07/05/24 10/16/24 Rx tablet (Entresto) rivaroxaban 2.5 mg tablet (Xarelto) 2.5 mg PO Q12H 07/12/24 10/16/24 History doxazosin 2 mg tablet 2 mg PO HS 08/19/24 10/16/24 History acetaminophen 500 mg tablet 1,000 mg (2 x 500 mg) PO TID PRN 09/10/24 10/16/24 Rx matt 7 days #42 tabs losartan 100 mg tablet 100 mg PO DAILY 07/12/25 08/17/25 History cholestyramine (with sugar) 4 gram 4 g PO BID 1 month #60 ea 09/28/24 10/16/24 Rx powder for susp in a packet (Questran) Allergies Allergy/AdvReac Type Severity Reaction Status Date / Time No Known Allergies Allergy Unknown Verified 09/28/24 14:52 Vital Signs Vital Signs - 24 hr 10/16/24 15:12 10/16/24 15:19 10/16/24 16:03 Temperature 97.4 F L 97.9 F 97.8 F Pulse Rate 77 77 77 Respiratory Rate 18 20 18 Blood Pressure 135/78 119/76 138/84 Pulse Oximetry 97 98 97 Oxygen Delivery Room Air 10/16/24 17:09 10/16/24 17:33 10/16/24 18:02 Temperature 97.8 F 97.9 F Pulse Rate 75 76 78 Respiratory Rate 18 18 16 Blood Pressure 100/89 116/80 129/84 Pulse Oximetry 96 98 97 Oxygen Delivery 10/16/24 18:32 Temperature 97.8 F Pulse Rate 75 Respiratory Rate 20 Blood Pressure 146/85 H Pulse Oximetry 97 Oxygen Delivery Exam Const: General: comfortable and no acute distress Other: , male, obese body habitus, nontoxic appearance HENMT: Face/Nose/Sinus: Normal nares present Mouth: Yes moist mucous membranes Eyes: General: appearance normal, both eyes and all related structures Sclera: sclerae normal Pupils: Equal, round and reactive pupils present EOM: EOMs intact bilaterally Resp: Effort & Inspection: normal respiratory effort Auscultation: clear to auscultation bilaterally Cardio: Rate: regular rate Rhythm: regular rhythm Other: S1-S2 present without murmur, rub, ectopy GI: Other: Abdomen soft, nondistended, nontender. Normoactive bowel sounds in all quadrants. Skin: General skin exam: normal color and no rashes or lesions noted Wounds: no wounds Neuro: Speech: normal speech Motor exam (neuro): 5/5 motor strength present throughout Sensory Exam: normal sensation Other: A&O x4 Extrem: General: normal to inspection Psych: Mental Status: mental status grossly normal Affect: normal affect Other: Good insight and judgment, pleasant H&P: Results Labs Labs: Short CBC 10/16/24 Range/Units 15:39 WBC 5.8 (4.5-10.0) K/mm3 Hgb 13.5 L (14.0-18.0) g/dL Hct 39.9 L (42.0-52.0) % Plt Count 131 L (150-375) k/mm3 BMP 10/16/24 15:39 Sodium 136 L Potassium 4.3 Chloride 106 Carbon Dioxide 19 L BUN 14 Creatinine 0.94 Glucose 134 H Calcium 9.1 Cardiac Enzymes 10/16/24 10/16/24 Range/Units 15:39 18:48 Troponin I < 0.012 < 0.012 (0.000-0.034) ng/mL Liver Function 10/16/24 Range/Units 15:39 Total Bilirubin 0.7 (0.2-1.3) mg/dL AST 34 (17-59) U/L ALT 41 (6-50) U/L Alkaline Phosphatase 65 (38-126) U/L Albumin 4.1 (3.5-5.1) g/dL Assessment and Plan Assessment and plan (1) Chest pain: Qualifiers: Chest pain type: unspecified Qualified Code(s): R07.9 - Chest pain, unspecified Code(s): R07.9 - Chest pain, unspecified Status: Acute Assessment and Plan: - EKG, initial: NSR, right bundle branch block, rate 74. When compared to EKG done on 09/10/2024 there are no significant changes. Awaiting formal read. - EKG, repeat (1): No significant changes when compared to prior EKG done same day. - CXR: Moderate left-sided pleural effusion without focal infiltrate identified. - Troponin: <0.012 x3 - ASA 324 given - SL nitro PRN - cardiology consulted, awaiting recs - most recent cardiac catheterization in June of 2024 - telemetry monitoring (2) Chronic heart failure with preserved ejection fraction (HFpEF): Code(s): I50.32 - Chronic diastolic (congestive) heart failure Status: Chronic Assessment and Plan: - BNP 48 - most recent echo (05/2024): Normal biventricular size and systolic function, no significant valvular abnormalities - continue Lasix 40 mg p.o. daily (3) Type 2 diabetes mellitus: Qualifiers: Diabetes mellitus complication detail: with unspecified neuropathy Diabetes mellitus complication status: with neurologic complications Diabetes mellitus nursing home insulin use: with nursing home use Qualified Code(s): E11.40 - Type 2 diabetes mellitus with diabetic neuropathy, unspecified; Z79.4 - prison (current) use of insulin Code(s): E11.9 - Type 2 diabetes mellitus without complications Status: Acute Assessment and Plan: - hypoglycemia protocol - POC blood glucose ACHS - home medication: Hold Trulicity (NF) and metformin, continue Jardiance - correct regimen ordered - high dose TIDWM, based off BMI - A1C 6.9% on 07/02/2024 (4) Hypertension: Qualifiers: Hypertension type: primary hypertension Qualified Code(s): I10 - Essential (primary) hypertension Code(s): I10 - Essential (primary) hypertension Status: Chronic Assessment and Plan: - chronic, currently 133/86 - continue home medications: Entresto, losartan, Imdur, Cardura, Coreg - monitor (5) COPD (chronic obstructive pulmonary disease): Qualifiers: COPD type: unspecified COPD Qualified Code(s): J44.9 - Chronic obstructive pulmonary disease, unspecified Code(s): J44.9 - Chronic obstructive pulmonary disease, unspecified Status: Chronic Assessment and Plan: - continue home medications (6) Obstructive sleep apnea on CPAP: Code(s): G47.33 - Obstructive sleep apnea (adult) (pediatric); Z99.89 - Dependence on other enabling machines and devices Status: Chronic Assessment and Plan: - continue home CPAP Plan Diet: Heart healthy GI Prophylaxis: n/a DVT Prophylaxis: Xarelto IV fluids: None Lines/Tubes: Peripheral Code Status: Full code Quality VTE Prophylaxis VTE prophylaxis: pharmacologic ordered Hospitalist [facility] Advance Care Plan I have confirmed that the patient's Advanced Care Plan is present, code status is documented, or surrogate decision maker is listed in patient medical record.: Yes Medication Reconciliation I have utilized all available resources to obtain, update and review the patients current medications (includes all prescriptions, OTC, herbals, cannabis, and nutritional supplements).: Yes
--- NOTE | 2024-10-16 19:33 | PC.NURSE ---
Attempted to call report. Floor RN was busy and is requesting to call back.
--- NOTE | 2024-10-16 20:21 | ADMGEN ---
This patient, Vini Zambrano, was admitted to IMU Room 200-01 at 2015. Patient/family oriented to hospital policies and general routines including ID bracelet, bed and alarms, visiting hours, pain management, procedures, bathroom and other care routines, personal items, smoking policy, room service/diet, and visiting hours. Information on how to activate the Rapid Response Team has been discussed. Patient/Family are encouraged to report perceived risks to care and to ask questions if they do not understand what they are told or what they should do.
[2024-10-16 21:45] LABS: Troponin I < 0.012 ng/mL (0.000-0.034)
[2024-10-16] MEDS: TAMSULOSIN HCL 0.4 MG CAPSULE PO (23:33)
[2024-10-16] MEDS: ALPRAZolam (*CRX) 0.25 MG TABLET PO (23:33)
[2024-10-16] MEDS: DOXAZOSIN MESYLATE 2 MG TABLET PO (23:33)
[2024-10-16] MEDS: RIVAROXABAN 2.5 MG TABLET PO (23:33)
[2024-10-16] MEDS: buPROPion HCL SR (12 HR) 150 MG TAB PO (23:33)
[2024-10-16] MEDS: SACUBITRIL/VALSARTAN 24-26 MG TABLET 1 TAB PO (23:33)
[2024-10-17] VITALS (19 sets, daily range): BP systolic 108–140; BP diastolic 45–74; PULSE 67–91; RESP 18–22; TEMP 35.9–36.4; O2SAT 94–99
[2024-10-17 04:00] LABS: Hematocrit 39.0 % (42.0-52.0); Hemoglobin 12.9 g/dL (14.0-18.0); Immature Granulocyte Percent A 0.2 % (0-0.5); Immature Platelet Fraction Pct 5.5 % (0.9-11.2); Lymphocytes Absolute Auto 1.26 K/mm3 (0.9-3.2); Mean Corpuscular HGB Conc 33.1 g/dl (32-36); Mean Corpuscular Hemoglobin 30.1 pg (26-34); Mean Corpuscular Volume 91.1 fl (80-100); Nucleated Red Blood Cells Absolute Auto 0.000 K/mm3 (0.0-0.012); Nucleated Red Blood Cells Perc 0.0 % (0.0-0.2); Platelet Count Result 123 k/mm3 (150-375); Red Blood Count 4.28 M/mm3 (4.6-6.20); White Blood Count 8.3 K/mm3 (4.5-10.0)
[2024-10-17 04:14] LABS: Anion Gap 8 mmol/L (4-12); Blood Urea Nitrogen 17 mg/dL (9-20); Calcium 9.0 mg/dL (8.4-10.2); Carbon Dioxide 23 mmol/L (22-30); Chloride 104 mmol/L (98-107); Estimated CRCL calculation 85 ml/min; Estimated Glomerular Filt Rate > 60; Glucose 176 mg/dL (65-110); Potassium 4.2 mmol/L (3.4-5.0); Sodium 135 mmol/L (137-145)
[2024-10-17] MEDS: FLUTICASONE/UMECLIDIN/VILANTER 100-62.5-25 MCG ELLIPTA 1 PUFF INHALATION (08:02)
[2024-10-17] MEDS: CHOLESTYRAMINE (W/ SUGAR) 4 GM POWD.PACK PO (09:00)
[2024-10-17] MEDS: ATORVASTATIN 40 MG TABLET 80 MG PO (11:59)
[2024-10-17] MEDS: ISOSORBIDE MONONITRATE 60 MG TAB.ER.24H 120 MG PO (11:59)
[2024-10-17] MEDS: buPROPion HCL SR (12 HR) 150 MG TAB PO ×2 (12:00→21:56)
[2024-10-17] MEDS: PANTOPRAZOLE 40 MG TABLET PO ×2 (12:00→16:44)
[2024-10-17] MEDS: RIVAROXABAN 2.5 MG TABLET PO ×2 (12:01→21:55)
[2024-10-17] MEDS: EMPAGLIFLOZIN 10 MG TABLET PO (12:01)
[2024-10-17] MEDS: FUROSEMIDE 40 MG TABLET PO (12:01)
[2024-10-17] MEDS: CLOPIDOGREL BISULFATE 75 MG TABLET PO (12:01)
[2024-10-17] MEDS: SACUBITRIL/VALSARTAN 24-26 MG TABLET 1 TAB PO ×2 (12:02→21:56)
[2024-10-17] MEDS: LOSARTAN POTASSIUM 100 MG TABLET PO (12:02)
--- NOTE | 2024-10-17 12:34 | PM.IMPN ---
Progress Note: A&P Assessment and Plan (1) Chest pain: Qualifiers: Chest pain type: unspecified Qualified Code(s): R07.9 - Chest pain, unspecified Code(s): R07.9 - Chest pain, unspecified Status: Acute Assessment and Plan: - EKG, initial: NSR, right bundle branch block, rate 74. When compared to EKG done on 09/10/2024 there are no significant changes. Awaiting formal read. - EKG, repeat (1): No significant changes when compared to prior EKG done same day. - CXR: Moderate left-sided pleural effusion without focal infiltrate identified. - Troponin: <0.012 x3 - ASA 324 given - SL nitro PRN - cardiology consulted - most recent cardiac catheterization in June of 2024 - telemetry monitoring (2) Chronic heart failure with preserved ejection fraction (HFpEF): Code(s): I50.32 - Chronic diastolic (congestive) heart failure Status: Chronic Assessment and Plan: - BNP 48 - most recent echo (05/2024): Normal biventricular size and systolic function, no significant valvular abnormalities - continue Lasix 40 mg p.o. daily (3) Type 2 diabetes mellitus: Qualifiers: Diabetes mellitus complication detail: with unspecified neuropathy Diabetes mellitus complication status: with neurologic complications Diabetes mellitus skilled nursing insulin use: with termite inspector use Qualified Code(s): E11.40 - Type 2 diabetes mellitus with diabetic neuropathy, unspecified; Z79.4 - director long term care (current) use of insulin Code(s): E11.9 - Type 2 diabetes mellitus without complications Status: Acute Assessment and Plan: - hypoglycemia protocol - POC blood glucose ACHS - home medication: Hold Trulicity (NF) and metformin, continue Jardiance - correct regimen ordered - high dose TIDWM, based off BMI - A1C 6.9% on 07/02/2024 (4) Hypertension: Qualifiers: Hypertension type: primary hypertension Qualified Code(s): I10 - Essential (primary) hypertension Code(s): I10 - Essential (primary) hypertension Status: Chronic Assessment and Plan: - chronic, currently 133/86 - continue home medications: Entresto, losartan, Imdur, Cardura, Coreg - monitor (5) COPD (chronic obstructive pulmonary disease): Qualifiers: COPD type: unspecified COPD Qualified Code(s): J44.9 - Chronic obstructive pulmonary disease, unspecified Code(s): J44.9 - Chronic obstructive pulmonary disease, unspecified Status: Chronic Assessment and Plan: - continue home medications (6) Obstructive sleep apnea on CPAP: Code(s): G47.33 - Obstructive sleep apnea (adult) (pediatric); Z99.89 - Dependence on other enabling machines and devices Status: Chronic Assessment and Plan: - continue home CPAP Plan Diet: Heart healthy GI Prophylaxis: n/a DVT Prophylaxis: Xarelto IV fluids: None Lines/Tubes: Peripheral Code Status: Full code Subjective Date/time seen: 10/17/24 12:34 Interval history: Patient still complains of mild achy chest pain. Will monitor until tomorrow. Patient had 3 stent placement and the recent one on June 2024 at [facility]. Patient also history of stroke. Review of Systems Review of Systems: All systems reviewed & are unremarkable except as noted in HPI and below Exam Const: General: comfortable and no acute distress Other: , male, obese body habitus, nontoxic appearance HENMT: Face/Nose/Sinus: Normal nares present Mouth: Yes moist mucous membranes Eyes: General: appearance normal, both eyes and all related structures Sclera: sclerae normal Pupils: Equal, round and reactive pupils present EOM: EOMs intact bilaterally Resp: Effort & Inspection: normal respiratory effort Auscultation: clear to auscultation bilaterally Cardio: Rate: regular rate Rhythm: regular rhythm Other: S1-S2 present without murmur, rub, ectopy GI: Other: Abdomen soft, nondistended, nontender. Normoactive bowel sounds in all quadrants. Skin: General skin exam: normal color and no rashes or lesions noted Wounds: no wounds Neuro: Cranial nerves: Yes Equal, round and reactive pupils present Speech: normal speech Motor exam (neuro): 5/5 motor strength present throughout Sensory Exam: normal sensation Other: A&O x4 Extrem: General: normal to inspection Psych: Mental Status: mental status grossly normal Affect: normal affect Other: Good insight and judgment, pleasant Objective Data Vital Signs Vital Signs: Vital Signs - 24 hr 10/16/24 15:12 10/16/24 15:19 10/16/24 16:03 Temperature 97.4 F L 97.9 F 97.8 F Pulse Rate 77 77 77 Respiratory Rate 18 20 18 Blood Pressure 135/78 119/76 138/84 Pulse Oximetry 97 98 97 Oxygen Delivery Room Air 10/16/24 17:09 10/16/24 17:33 10/16/24 18:02 Temperature 97.8 F 97.9 F Pulse Rate 75 76 78 Respiratory Rate 18 18 16 Blood Pressure 100/89 116/80 129/84 Pulse Oximetry 96 98 97 Oxygen Delivery 10/16/24 18:32 10/16/24 19:35 10/16/24 21:00 Temperature 97.8 F Pulse Rate 75 77 Respiratory Rate 20 16 Blood Pressure 146/85 H 133/86 Pulse Oximetry 97 97 Oxygen Delivery Room Air 10/16/24 21:26 10/16/24 22:00 10/16/24 23:33 Temperature 97.7 F Pulse Rate 76 79 84 Respiratory Rate 18 Blood Pressure 129/67 Pulse Oximetry 97 Oxygen Delivery 10/16/24 23:45 10/17/24 00:00 10/17/24 00:00 Temperature 97.5 F L Pulse Rate 85 91 Respiratory Rate 21 H Blood Pressure 130/69 Pulse Oximetry 97 Oxygen Delivery Room Air 10/17/24 02:00 10/17/24 04:00 10/17/24 04:00 Temperature 97.6 F Pulse Rate 69 67 76 Respiratory Rate 20 Blood Pressure 129/70 Pulse Oximetry 95 Oxygen Delivery 10/17/24 04:30 10/17/24 06:00 10/17/24 08:00 Temperature 97.5 F L Pulse Rate 84 70 Respiratory Rate 22 H Blood Pressure 140/69 Pulse Oximetry 98 Oxygen Delivery Room Air 10/17/24 08:00 10/17/24 08:03 10/17/24 11:40 Temperature 97.4 F L Pulse Rate 82 77 70 Respiratory Rate 20 20 Blood Pressure 137/67 Pulse Oximetry 99 Oxygen Delivery 10/17/24 12:02 Temperature Pulse Rate 74 Respiratory Rate Blood Pressure Pulse Oximetry Oxygen Delivery Intake/Output Intake/Output: Intake & Output 10/14/24 10/15/24 10/16/24 10/17/24 23:59 23:59 23:59 23:59 Intake Total 2758 Output Total 1076 Balance 1682 Meds/Results Medications: Active Medications Generic Name Dose Route Start Last Admin Trade Name Freq PRN Reason Stop Dose Admin Acetaminophen 1,000 mg 10/16/24 22:54 Acetaminophen 500 Mg Tablet PO TID PRN PAIN RATED 1-3 Alprazolam 0.25 mg 10/16/24 23:05 10/16/24 23:33 Alprazolam (*Crx) 0.25 Mg Tablet PO 0.25 mg HS BUZZ Administration Atorvastatin Calcium 80 mg 10/17/24 09:00 10/17/24 11:59 Atorvastatin 40 Mg Tablet PO 80 mg DAILY BUZZ Administration Bupropion HCl 150 mg 10/16/24 22:55 10/17/24 12:00 Bupropion Hcl Sr (12 Hr) 150 Mg Tab PO 150 mg Q12HR BUZZ Administration Carvedilol 12.5 mg 10/16/24 23:10 10/17/24 12:02 Carvedilol 12.5 Mg Tablet PO 12.5 mg Q12HR BUZZ Administration Cholestyramine Resin 4 gm 10/17/24 09:00 10/17/24 09:00 Cholestyramine (W/ Sugar) 4 Gm Powd.Pack PO 4 gm BID BUZZ Administration Clopidogrel Bisulfate 75 mg 10/17/24 09:00 10/17/24 12:01 Clopidogrel Bisulfate 75 Mg Tablet PO 75 mg QAM BUZZ Administration Dextrose 12.5 gm 10/16/24 19:59 Dextrose 50% 25 Gm/50 Ml Syringe IV PUSH PRN PRN Hypoglycemia Protocol Doxazosin Mesylate 2 mg 10/16/24 23:10 10/16/24 23:33 Doxazosin Mesylate 2 Mg Tablet PO 2 mg HS BUZZ Administration Empagliflozin 10 mg 10/17/24 09:00 10/17/24 12:01 Empagliflozin 10 Mg Tablet PO 10 mg DAILY BUZZ Administration Fluticasone/Umeclidinium/Vilanterol 1 puff 10/17/24 09:00 10/17/24 08:02 Fluticasone/Umeclidin/Vilanter 100-62.5-25 Mcg Ellipta INHALATION 1 puff DAILY BUZZ Administration Furosemide 40 mg 10/17/24 09:00 10/17/24 12:01 Furosemide 40 Mg Tablet PO 40 mg DAILY BUZZ Administration Glucagon 1 mg 10/16/24 19:59 Glucagon For Inj 1 Mg Vial IM PRN PRN Hypoglycemia Protocol Glucose 15 gm 10/16/24 19:59 Glucose Oral Gel 15 Gm Of Glucse In 37.5 Gm Tube PO PRN PRN Hypoglycemia Protocol Dextrose 1,000 mls @ 100 mls/hr 10/16/24 19:59 Dextrose 5% 1,000 Ml IVPB PRN PRN Hypoglycemia Protocol Insulin Aspart 4 - 8 units 10/17/24 08:00 10/17/24 12:02 Insulin Aspart (*Bkc) 100 Units/Ml SUB-Q Not Given TIDWM [facility] Protocol Isosorbide Mononitrate 120 mg 10/17/24 09:00 10/17/24 11:59 Isosorbide Mononitrate 60 Mg Tab.Er.24h PO 120 mg DAILY BUZZ Administration Losartan Potassium 100 mg 10/17/24 09:00 10/17/24 12:02 Losartan Potassium 100 Mg Tablet PO 100 mg DAILY BUZZ Administration Nitroglycerin 0.4 mg 10/16/24 19:56 Nitroglycerin Sl 0.4 Mg Tablet SUBLINGUAL Q5MIN PRN Chest Pain Ondansetron HCl 4 mg 10/16/24 20:00 Ondansetron Hcl Odt 4 Mg Tablet PO Q6H PRN Nausea And Vomiting Pantoprazole Sodium 40 mg 10/17/24 09:00 10/17/24 12:00 Pantoprazole 40 Mg Tablet PO 40 mg BID BUZZ Administration Polyethylene Glycol 17 gm 10/16/24 20:00 Polyethylene Glycol 3350 17 Gm Powd.Pack PO QAM PRN Constipation Rivaroxaban 2.5 mg 10/16/24 22:55 10/17/24 12:01 Rivaroxaban 2.5 Mg Tablet PO 2.5 mg Q12HR BUZZ Administration Sacubitril/Valsartan 1 tab 10/16/24 23:10 10/17/24 12:02 Sacubitril/Valsartan 24-26 Mg Tablet PO 1 tab Q12HR BUZZ Administration Tamsulosin HCl 0.4 mg 10/16/24 23:10 10/16/24 23:33 Tamsulosin Hcl 0.4 Mg Capsule PO 0.4 mg HS BUZZ Administration Radiology Results: ITS Impressions Chest X-Ray 10/16/24 16:30 IMPRESSION: Moderate left-sided pleural effusion without focal infiltrate identified. Labs Labs: Laboratory Results - last 24 hr 10/16/24 10/16/24 10/16/24 15:38 15:39 18:48 WBC 5.8 RBC 4.47 L Hgb 13.5 L Hct 39.9 L MCV 89.3 MCH 30.2 MCHC 33.8 RDW 13.8 Plt Count 131 L MPV 10.9 H Immature Gran % (Auto) 0.3 Neut % (Auto) 68.6 Lymph % (Auto) 18.9 Hancock % (Auto) 8.8 H Eos % (Auto) 3.1 Baso % (Auto) 0.3 Lymph # (Auto) 1.09 [place] # (Auto) 0.5 Eos # (Auto) 0.2 Baso # (Auto) 0.0 Abs Immat Gran (auto) 0.02 Absolute Neuts (auto) 4.0 Absolute Nucleated RBC 0.000 Nucleated RBC % 0.0 % Immature Plt Fraction 5.0 PT 15.3 H INR 1.2 APTT 31.6 Sodium 136 L Potassium 4.3 Chloride 106 Carbon Dioxide 19 L Anion Gap 11 BUN 14 Creatinine 0.94 Estim Creat Clear Calc 98 Estimated GFR > 60 Glucose 134 H POC Capillary Glucose Calcium 9.1 Total Bilirubin 0.7 AST 34 ALT 41 Alkaline Phosphatase 65 Troponin I < 0.012 < 0.012 NT-Pro-B Natriuret Pep 48 Total Protein 7.2 Albumin 4.1 Lipase 160 10/16/24 10/16/24 10/17/24 20:59 21:10 03:29 WBC 8.3 RBC 4.28 L Hgb 12.9 L Hct 39.0 L MCV 91.1 MCH 30.1 MCHC 33.1 RDW 14.0 Plt Count 123 L MPV 10.9 H Immature Gran % (Auto) 0.2 Neut % (Auto) 72.2 Lymph % (Auto) 15.2 L [place]ancock % (Auto) 9.9 H Eos % (Auto) 2.3 Baso % (Auto) 0.2 Lymph # (Auto) 1.26 [place]ancock # (Auto) 0.8 H Eos # (Auto) 0.2 Baso # (Auto) 0.0 Abs Immat Gran (auto) 0.02 Absolute Neuts (auto) 6.0 Absolute Nucleated RBC 0.000 Nucleated RBC % 0.0 % Immature Plt Fraction 5.5 PT INR APTT Sodium 135 L Potassium 4.2 Chloride 104 Carbon Dioxide 23 Anion Gap 8 BUN 17 Creatinine 1.04 Estim Creat Clear Calc 85 Estimated GFR > 60 Glucose 176 H POC Capillary Glucose 115 H Calcium 9.0 Total Bilirubin AST ALT Alkaline Phosphatase Troponin I < 0.012 NT-Pro-B Natriuret Pep Total Protein Albumin Lipase 10/17/24 10/17/24 07:08 11:11 WBC RBC Hgb Hct MCV MCH MCHC RDW Plt Count MPV Immature Gran % (Auto) Neut % (Auto) Lymph % (Auto) Hancock % (Auto) Eos % (Auto) Baso % (Auto) Lymph # (Auto) [place] # (Auto) Eos # (Auto) Baso # (Auto) Abs Immat Gran (auto) Absolute Neuts (auto) Absolute Nucleated RBC Nucleated RBC % % Immature Plt Fraction PT INR APTT Sodium Potassium Chloride Carbon Dioxide Anion Gap BUN Creatinine Estim Creat Clear Calc Estimated GFR Glucose POC Capillary Glucose 183 H 169 H Calcium Total Bilirubin AST ALT Alkaline Phosphatase Troponin I NT-Pro-B Natriuret Pep Total Protein Albumin Lipase Quality VTE Prophylaxis VTE prophylaxis: pharmacologic ordered Hospitalist MIPS Advance Care Plan I have confirmed that the patient's Advanced Care Plan is present, code status is documented, or surrogate decision maker is listed in patient medical record.: Yes Medication Reconciliation I have utilized all available resources to obtain, update and review the patients current medications (includes all prescriptions, OTC, herbals, cannabis, and nutritional supplements).: Yes
--- NOTE | 2024-10-17 12:54 | P.CONCA_ITS ---
Assessment and Plan Assessment and plan (1) Chronic heart failure with preserved ejection fraction (HFpEF): Code(s): I50.32 - Chronic diastolic (congestive) heart failure Status: Chronic (2) Chest pain: Qualifiers: Chest pain type: unspecified Qualified Code(s): R07.9 - Chest pain, unspecified Code(s): R07.9 - Chest pain, unspecified Status: Acute (3) HLD (hyperlipidemia): Qualifiers: Hyperlipidemia type: unspecified Qualified Code(s): E78.5 - Hyperlipidemia, unspecified Code(s): E78.5 - Hyperlipidemia, unspecified Status: Chronic Plan 1. CAD, prior PCI to pLAD, mLAD and LCX 2. Angina 3. HTN 4. Hyperlipidemia 5. Chronic diastolic HF - Optimize anti-anginal therapy - Add Ranexa 500 mg PO BID - Continue BB, nitrate - Cardiovascular riks facto modification. -Continue DAPT and statin - Can be discharged from a cardiology standpoint - Follow-up with Dr Rian King in 1-2 weeks History of Present Illness History of Present Illness Consult date/time: 10/17/24 12:54 Requesting physician: Marlene Garcia APRN Consult reason: chest pain Reason For Visit: Chest pain Narrative: 63-year-old man with CAD status post PCI to LAD and left circumflex, chronic diastolic heart failure, CVA, hypertension, hyperlipidemia, diabetes type 2, and TAMIR on CPAP. he recently underwent PCI to mid LAD with jailing of the diag (05/2024) He was admitted previously with chest pain and underwent a repeat left heart catheterization which showed: LHC (07/04/2024) 1. Left main: The left main coronary artery is patent without any significant obstructive disease. The left pain is short. 2. Left anterior descending: Patent stents in the proximal-mid LAD. No obstructive disease in the first diagonal branch. The second diagonal branch is a small caliber vessel that arises at the stented portion of the LAD. The proximal portion of this small diagonal branch has 70% stenosis, which is angiographically unchanged compared to prior study. Remainder of the mid-distal LAD is small caliber vessel with mild diffuse disease without focal obstructive disease. The apical LAD has a 70% stenosis, which is unchanged compared to prior. 3. Left circumflex: The left circumflex artery has mild diffuse disease. Patent stent in the mid portion. There is mild 40% stenosis distal to the stent. 4. Right coronary artery: The RCA is the dominant vessel. Slow flow noted on initial RCA angiogram. The RCA has mild diffuse disease. There is mild disease in the mid portion of the RCA. He came in with chest pain, it did repsond to nitro but becasue he has 2-3 episdoes he came to the ED EKG did not show any dynamic ST_T wave changes Trop neg x 2 No more chest pain since admission ON BB, Imdur Review of Systems 2 Review of Systems: All systems reviewed & are unremarkable except as noted in HPI and below Cardiovascular: Cardiovascular: Reports as per HPI Respiratory: Respiratory: Reports as per HPI [facility] Past Medical History Medical History Thrombocytopenia Hypertension Coronary artery disease Stent to the distal circumflex and Left anterior descending in 2014. Left anterior descending stent in 04/2015. COVID Transient ischemic attack Diabetic peripheral neuropathy Peripheral vascular disease Deep venous thrombosis Gastric ulcer Obstructive sleep apnea on CPAP Hyperlipidemia Type 2 diabetes mellitus Gastroesophageal reflux disease Chronic obstructive pulmonary disease Cerebrovascular accident Mild left-sided weakness. Congestive heart failure BMI greater than 40 Chronic anticoagulation Hydronephrosis Psoriasis Depression Fracture of fifth toe, right, closed Kidney stones Pneumonia Myocardial infarction Seasonal allergies Surgical History Surgical History History of coronary artery stent placement History of tonsillectomy History of cholecystectomy History of lithotripsy History of rectal polypectomy History of cardiac catheterization 2 stents Family History Family History Mother Diabetes mellitus Arthritis Kidney stones Coronary artery disease Father Acute myocardial infarction Heart disease Kidney stones Hypertension Coronary artery disease Sibling Coronary artery disease Heart disease Hx of CABG Social History Social History Social History: Surrogate decision maker: Rena Dodd, friend. Code status: Full code. Smoking packs per day: 1 Smoking cigarettes per day: 20.0 Years smoked: 47 Smoking pack-years: 47.00 Smoking status: Former smoker Tobacco type: cigarettes Second hand tobacco smoke exposure: Yes Smoking end date: 02/22/24 Alcohol intake: former Drinks per week: 0 Substance use: never Substance use type: does not use Last use: 10/01/2023 Do You Feel Safe in your Home?: Yes Lack of Transportation: No Lack of Food: Never True Current Housing: I Have Housing Concerned About Future Housing: No Difficulty Paying Gas/Electric Bills: No Difficulty Paying for Meds: No Currently Unemployed: No Education: High School Diploma/GED Difficulty w/ Childcare or Family Care: No Living arrangements: with roommate(s) Additional living arrangements comments: The patient lives in [place] with a roommate. He has no children. Occupation/Education: other Additional occupation/education comments: Disabled. Spiritual care concerns: No Meds Home Medications and Allergies Home Medications ?Medication ?Instructions ?Recorded ?Confirmed ?Type amlodipine 10 mg tablet 10 mg PO DAILY 01/24/19 10/16/24 History bupropion HCl 150 mg tablet,12 hr 150 mg PO Q12H 01/24/19 10/16/24 History sustained-release (Wellbutrin SR) metformin 1,000 mg tablet 1,000 mg PO BID 01/24/19 10/16/24 History isosorbide mononitrate 60 mg 120 mg PO DAILY 01/09/20 10/16/24 History tablet,extended release 24 hr alprazolam 0.25 mg tablet 0.25 mg PO HS 08/21/21 10/16/24 History carvedilol 12.5 mg tablet (Coreg) 12.5 mg PO Q12HR #60 tabs 05/04/24 10/16/24 Rx empagliflozin 10 mg tablet 10 mg PO DAILY #30 tabs 05/04/24 10/16/24 Rx (Jardiance) nitroglycerin 0.4 mg sublingual 0.4 mg sublingual Q5MIN PRN Chest 05/04/24 10/16/24 Rx tablet (Nitrostat) Pain #26 tabs omeprazole 40 mg capsule,delayed 40 mg PO DAILY #30 caps 05/04/24 10/16/24 Rx release tamsulosin 0.4 mg capsule 0.4 mg PO HS #30 caps 05/04/24 10/16/24 Rx atorvastatin 80 mg tablet 80 mg PO DAILY 06/13/24 10/16/24 History dulaglutide 3 mg/0.5 mL 3 mg subcut WEEKLY 06/13/24 10/16/24 History subcutaneous pen injector (Trulicity) furosemide 40 mg tablet 40 mg PO DAILY 06/13/24 10/16/24 History clopidogrel 75 mg tablet 75 mg PO QAM #30 tabs 06/17/24 10/16/24 Rx budesonide 160 mcg-glycopyr 9 2 inh inhalation BID 06/28/24 10/16/24 History mcg-formot 4.8 mcg/actuation HFA inhaler (Breztri Aerosphere) sacubitril 24 mg-valsartan 26 mg 1 tab PO Q12HR #30 tabs 07/05/24 10/16/24 Rx tablet (Entresto) rivaroxaban 2.5 mg tablet (Xarelto) 2.5 mg PO Q12H 07/12/24 10/16/24 History doxazosin 2 mg tablet 2 mg PO HS 08/19/24 10/16/24 History acetaminophen 500 mg tablet 1,000 mg (2 x 500 mg) PO TID PRN 09/10/24 10/16/24 Rx matt 7 days #42 tabs losartan 100 mg tablet 100 mg PO DAILY 09/10/24 10/16/24 History cholestyramine (with sugar) 4 gram 4 g PO BID 1 month #60 ea 09/28/24 10/16/24 Rx powder for susp in a packet (Questran) Allergies Allergy/AdvReac Type Severity Reaction Status Date / Time No Known Allergies Allergy Unknown Verified 09/28/24 14:52 Vital Signs Vital Signs - 24 hr 10/16/24 15:12 10/16/24 15:19 10/16/24 16:03 Temperature 36.3 C L 36.6 C 36.6 C Pulse Rate 77 77 77 Respiratory Rate 18 20 18 Blood Pressure 135/78 119/76 138/84 Pulse Oximetry 97 98 97 Oxygen Delivery Room Air 10/16/24 17:09 10/16/24 17:33 10/16/24 18:02 Temperature 36.6 C 36.6 C Pulse Rate 75 76 78 Respiratory Rate 18 18 16 Blood Pressure 100/89 116/80 129/84 Pulse Oximetry 96 98 97 Oxygen Delivery 10/16/24 18:32 10/16/24 19:35 10/16/24 21:00 Temperature 36.6 C Pulse Rate 75 77 Respiratory Rate 20 16 Blood Pressure 146/85 H 133/86 Pulse Oximetry 97 97 Oxygen Delivery Room Air 10/16/24 21:26 10/16/24 22:00 10/16/24 23:33 Temperature 36.5 C Pulse Rate 76 79 84 Respiratory Rate 18 Blood Pressure 129/67 Pulse Oximetry 97 Oxygen Delivery 10/16/24 23:45 10/17/24 00:00 10/17/24 00:00 Temperature 36.4 C L Pulse Rate 85 91 Respiratory Rate 21 H Blood Pressure 130/69 Pulse Oximetry 97 Oxygen Delivery Room Air 10/17/24 02:00 10/17/24 04:00 10/17/24 04:00 Temperature 36.4 C Pulse Rate 69 67 76 Respiratory Rate 20 Blood Pressure 129/70 Pulse Oximetry 95 Oxygen Delivery 10/17/24 04:30 10/17/24 06:00 10/17/24 08:00 Temperature 36.4 C L Pulse Rate 84 70 Respiratory Rate 22 H Blood Pressure 140/69 Pulse Oximetry 98 Oxygen Delivery Room Air 10/17/24 08:00 10/17/24 08:03 10/17/24 11:40 Temperature 36.3 C L Pulse Rate 82 77 70 Respiratory Rate 20 20 Blood Pressure 137/67 Pulse Oximetry 99 Oxygen Delivery 10/17/24 12:02 Temperature Pulse Rate 74 Respiratory Rate Blood Pressure Pulse Oximetry Oxygen Delivery Exam 2 Narrative: GENERAL: Well-appearing, well-nourished, and in no acute distress. HEAD: Normocephalic, atraumatic. EYES: EOMI. CHEST: Clear to auscultation. No respiratory distress. No wheezes rales or rhonchi HEART: Regular rate and rhythm. No murmur heard. Normal peripheral pulses. EXTREMITIES: Normal range of motion. No edema. SKIN: Warm, dry, no rash. NEURO: No focal deficits. Alert and oriented x3. PSYCH: Normal mood and affect Const: General: comfortable Other: , male, obese body habitus, nontoxic appearance HENMT: Face/Nose/Sinus: Normal nares present Mouth: Yes moist mucous membranes Eyes: General: appearance normal, both eyes and all related structures S clera: sclerae normal Pupils: Equal, round and reactive pupils present E OM: EOMs intact bilaterally Neck: Neck: no JVD Resp: Effort & Inspection: normal respiratory effort Auscultation: rales Cardio: Rate: regular rate Rhythm: regular rhythm Other: S1-S2 present without murmur, rub, ectopy GI: Other: Abdomen soft, nondistended, nontender. Normoactive bowel sounds in all quadrants. Skin: General skin exam: normal color and no rashes or lesions noted W ounds: no wounds Neuro: Cranial nerves: Yes Equal, round and reactive pupils present Speech: normal speech Motor exam (neuro): 5/5 motor strength present throughout S ensory Exam: normal sensation Other: A&O x4 Extrem: General: pedal edema Psych: Mental Status: mental status grossly normal Affect: normal affect Other: Good insight and judgment, pleasant Results Labs and Meds 10/17/24 03:29 10/17/24 03:29 Lab results: Cardiac Enzymes 10/16/24 10/16/24 10/16/24 Range/Units 15:39 18:48 21:10 AST 34 (17-59) U/L Troponin I < 0.012 < 0.012 < 0.012 (0.000-0.034) ng/mL Coagulation 10/16/24 Range/Units 15:39 PT 15.3 H (11.1-14.7) Seconds APTT 31.6 (22.3-36.8) Seconds CBC 10/16/24 10/17/24 Range/Units 15:39 03:29 WBC 5.8 8.3 (4.5-10.0) K/mm3 RBC 4.47 L 4.28 L (4.6-6.20) M/mm3 Hgb 13.5 L 12.9 L (14.0-18.0) g/dL Hct 39.9 L 39.0 L (42.0-52.0) % Plt Count 131 L 123 L (150-375) k/mm3 Lymph # (Auto) 1.09 1.26 (0.9-3.2) K/mm3 [place] # (Auto) 0.5 0.8 H (0.1-0.6) K/mm3 Eos # (Auto) 0.2 0.2 (0-0.3) K/mm3 Baso # (Auto) 0.0 0.0 (0.0-0.1) K/mm3 Comprehensive Metabolic Panel 10/16/24 10/17/24 Range/Units 15:39 03:29 Sodium 136 L 135 L (137-145) mmol/L Potassium 4.3 4.2 (3.4-5.0) mmol/L Chloride 106 104 (98-107) mmol/L Carbon Dioxide 19 L 23 (22-30) mmol/L BUN 14 17 (9-20) mg/dL Creatinine 0.94 1.04 (0.7-1.3) mg/dL Glucose 134 H 176 H (65-110) mg/dL Calcium 9.1 9.0 (8.4-10.2) mg/dL AST 34 (17-59) U/L ALT 41 (6-50) U/L Alkaline Phosphatase 65 (38-126) U/L Total Protein 7.2 (6.3-8.2) g/dL Albumin 4.1 (3.5-5.1) g/dL Intake and Output 10/16/24 10/17/24 10/17/24 23:59 07:59 15:59 Intake Total 2400 358 Output Total 176 900 Balance 2224 -542 Intake: Oral 2400 358 Output: Urine 175 900 Stool 1 Other: # Unmeasured Voids 1 Number of Bowel Movements Today 1 Patient Weight 10/17/24 23:59 Weight 135.8 kg
--- NOTE | 2024-10-17 17:51 | PC.NURSE ---
transferred to room 328 via w/c accompanied by staff- personal belongigns with pt- report given to Yamileth YOON
[2024-10-17] MEDS: RANOLAZINE 500 MG TAB.ER.12H PO (20:53)
[2024-10-17] MEDS: TAMSULOSIN HCL 0.4 MG CAPSULE PO (21:56)
[2024-10-17] MEDS: DOXAZOSIN MESYLATE 2 MG TABLET PO (21:56)
[2024-10-17] MEDS: ALPRAZolam (*CRX) 0.25 MG TABLET PO (21:56)
[2024-10-18] VITALS (9 sets, daily range): BP systolic 119–131; BP diastolic 71–77; PULSE 61–84; RESP 18–20; TEMP 36.1–36.2; O2SAT 95–97
[2024-10-18 06:15] LABS: Hematocrit 40.3 % (42.0-52.0); Hemoglobin 13.5 g/dL (14.0-18.0); Immature Platelet Fraction Pct 5.5 % (0.9-11.2); Mean Corpuscular HGB Conc 33.5 g/dl (32-36); Mean Corpuscular Hemoglobin 30.1 pg (26-34); Mean Corpuscular Volume 89.8 fl (80-100); Platelet Count Result 120 k/mm3 (150-375); Red Blood Count 4.49 M/mm3 (4.6-6.20); White Blood Count 7.4 K/mm3 (4.5-10.0)
[2024-10-18 06:40] LABS: Alanine Aminotransferase 34 U/L (6-50); Albumin Level 4.0 g/dL (3.5-5.1); Alkaline Phosphatase 62 U/L (38-126); Anion Gap 8 mmol/L (4-12); Aspartate Amino Transferase 25 U/L (17-59); Bilirubin,Total 0.7 mg/dL (0.2-1.3); Blood Urea Nitrogen 19 mg/dL (9-20); Calcium 9.2 mg/dL (8.4-10.2); Carbon Dioxide 25 mmol/L (22-30); Chloride 102 mmol/L (98-107); Estimated CRCL calculation 86 ml/min; Estimated Glomerular Filt Rate > 60; Glucose 173 mg/dL (65-110); Potassium 4.7 mmol/L (3.4-5.0); Sodium 135 mmol/L (137-145); Total Protein 6.9 g/dL (6.3-8.2)
[2024-10-18] MEDS: FUROSEMIDE 40 MG TABLET PO (08:54)
[2024-10-18] MEDS: ISOSORBIDE MONONITRATE 60 MG TAB.ER.24H 120 MG PO (08:57)
[2024-10-18] MEDS: SACUBITRIL/VALSARTAN 24-26 MG TABLET 1 TAB PO (08:57)
[2024-10-18] MEDS: EMPAGLIFLOZIN 10 MG TABLET PO (08:57)
[2024-10-18] MEDS: RIVAROXABAN 2.5 MG TABLET PO (08:57)
[2024-10-18] MEDS: LOSARTAN POTASSIUM 100 MG TABLET PO (08:58)
[2024-10-18] MEDS: CLOPIDOGREL BISULFATE 75 MG TABLET PO (08:58)
[2024-10-18] MEDS: ATORVASTATIN 40 MG TABLET 80 MG PO (08:58)
[2024-10-18] MEDS: RANOLAZINE 500 MG TAB.ER.12H PO (08:58)
[2024-10-18] MEDS: PANTOPRAZOLE 40 MG TABLET PO (08:58)
[2024-10-18] MEDS: buPROPion HCL SR (12 HR) 150 MG TAB PO (08:58)
[2024-10-18] MEDS: FLUTICASONE/UMECLIDIN/VILANTER 100-62.5-25 MCG ELLIPTA 1 PUFF INHALATION (09:00)
[2024-10-18] MEDS: CHOLESTYRAMINE (W/ SUGAR) 4 GM POWD.PACK PO (09:03)
--- NOTE | 2024-10-18 15:38 | P.DS_ITS ---
DS: Admitting Diagnosis Discharge Date 10/18/2024 Admitting Diagnosis Chest Pain DS: Discharge Diagnosis Discharge Diagnosis (1) Chest pain: Code(s): R07.9 - Chest pain, unspecified Status: Acute DS: Summary Hospital Course Hospital Course: Narrative: 64-year-old male with a significant past medical history of coronary artery disease (status post PCI x3), TIA, hypertension, peripheral neuropathy, type 2 diabetes mellitus, DVT, peptic ulcer disease, hyperlipidemia, sleep apnea, GERD, COPD, heart failure, depression, and former smoker, presented from home for evaluation of chest pain. The patient reported onset of left-sided chest pain around 7?7:30 am, awakening him from sleep. He self-administered four sublingual nitroglycerin tablets over the morning, each time achieving temporary relief. The pain was described as sharp, radiating from the jaw into the neck and chest, intermittent, aggravated by stress, and alleviated by nitro. He also endorsed dizziness and shortness of breath. He is on Plavix and Xarelto. He has a history of CAD with prior PCI to pLAD, mLAD, and LCX. Most recent cardiac catheterization in June 2024 showed stable CAD with patent stents in LAD and LCX, and slow flow in the RCA. He is currently participating in cardiac rehab. Initial Vitals: T 97.4?F, HR 77, RR 18, BP 135/78, SpO? 97% on RA ED Workup: * No leukocytosis, Hgb 13.5, INR 1.2, Na 136, Cr 0.94, GFR >60, Glucose 134 * Troponin negative x2 * BNP 48 * CXR: Moderate left-sided pleural effusion, no focal infiltrate * EKG: Sinus rhythm, right bundle branch block, rate 74; repeat unchanged * Cardiology consulted Cardiology adjusted medications to Ranexa 500mg PO bid, continue other home medications. Patient was chest pain free at bedside this morning. F/u with PCP in 3-5 days F/u with cardiology as instructed Time Spent with Patient Time attestation: Total time spent providing and/or coordinating discharge services: DS: Data Data Completed and Pending Labs on day of discharge: Labs from last 24 hours 10/18/24 10/18/24 10/18/24 11:52 07:45 05:53 WBC 7.4 RBC 4.49 L Hgb 13.5 L Hct 40.3 L MCV 89.8 MCH 30.1 MCHC 33.5 RDW 13.7 Plt Count 120 L MPV 10.8 H % Immature Plt Fraction 5.5 Sodium 135 L Potassium 4.7 Chloride 102 Carbon Dioxide 25 Anion Gap 8 BUN 19 Creatinine 1.09 Estim Creat Clear Calc 86 Estimated GFR > 60 Glucose 173 H POC Capillary Glucose 178 H 189 H Calcium 9.2 Total Bilirubin 0.7 AST 25 ALT 34 Alkaline Phosphatase 62 Total Protein 6.9 Albumin 4.0 10/17/24 10/17/24 20:06 16:13 WBC RBC Hgb Hct MCV MCH MCHC RDW Plt Count MPV % Immature Plt Fraction Sodium Potassium Chloride Carbon Dioxide Anion Gap BUN Creatinine Estim Creat Clear Calc Estimated GFR Glucose POC Capillary Glucose 222 H 187 H Calcium Total Bilirubin AST ALT Alkaline Phosphatase Total Protein Albumin Discharge Plan Discharge Attending physician on discharge: Nicholas Reyes Consulting providers: Nathan Sanchez Discharging Clinician: Nicholas Reyes Anticipated Discharge Date/Time: 10/18/24 15:35 Patient Disposition: Home Activity: as tolerated Diet: as tolerated and heart healthy Patient Instructions: Antibiotic Form, Rivaroxaban (By mouth), Heart Failure (GEN) Patient Language: Nicaraguan Stand Alone Forms: General Discharge Information Follow-up/Referrals: Nathan Sanchez MD [Physician, Interventional Cardiology] Referral Note: F/u with cardiology as instructed Angelina,JOVITA Junior [Primary Care Provider] Referral Note: F/u with PCP in 3-5 days Discharge Medications: New ranolazine 500 mg tablet extended release 12 hr 500 mg PO Q12H 30 Days Qty: 60 0RF Continued Breztri Aerosphere 160-9-4.8 mcg/actuation HFA aerosol inhaler 2 inh INHALATION BID losartan 100 mg tablet 100 mg PO DAILY cholestyramine (with sugar) [Questran] 4 gram powder in packet 4 g PO BID 30 Days Qty: 60 5RF Rx Instructions: administer w/meal; avoid other meds within 1hr before or 4-6hr after dose isosorbide mononitrate 60 mg tablet extended release 24 hr 120 mg PO DAILY carvedilol [Coreg] 12.5 mg Tablet 12.5 mg PO Q12HR Qty: 60 0RF nitroglycerin [Nitrostat] 0.4 mg Tablet, Sublingual 0.4 mg sublingual Q5MIN PRN (Reason: Chest Pain) Qty: 26 0RF omeprazole 40 mg capsule,delayed release(DR/EC) 40 mg PO DAILY Qty: 30 0RF tamsulosin 0.4 mg capsule 0.4 mg PO HS Qty: 30 0RF Jardiance 10 mg tablet 10 mg PO DAILY Qty: 30 0RF atorvastatin 80 mg tablet 80 mg PO DAILY Trulicity 3 mg/0.5 mL pen injector 3 mg SUBCUT WEEKLY Patient Comments: TAKES ON Tuesdays furosemide 40 mg tablet 40 mg PO DAILY clopidogrel 75 mg Tablet 75 mg PO QAM Qty: 30 0RF sacubitril-valsartan [Entresto] 24-26 mg Tablet 1 tab PO Q12HR Qty: 30 0RF doxazosin 2 mg tablet 2 mg PO HS bupropion HCl [Wellbutrin SR] 150 mg tablet sustained-release 12 hr 150 mg PO Q12H amlodipine 10 mg tablet 10 mg PO DAILY Patient Comments: take off hold, pt is taking currently metformin 1,000 mg tablet 1,000 mg PO BID alprazolam 0.25 mg tablet 0.25 mg PO HS Rx Instructions: at bedtime rivaroxaban [Xarelto] 2.5 mg tablet 2.5 mg PO Q12H acetaminophen 500 mg tablet 1,000 mg PO TID PRN (Reason: matt) 7 Days Qty: 42 0RF Date of admission: 10/17/24 16:56 Primary Care Provider: AngelinaSandi Admitting Provider: Mansi Hodges Attending physician on admission: Mansi Hodges Condition: Stable
== END 2024-10-18 16:05 | disposition home or self-care (01) | DRG 303 ==
LOC: ANHED 19:06 → ANHIMU 19:22 → ANH3MEDSUR 10-17 18:03
PROVIDERS: Emergency Medicine; General Practice; Student in an Organized Health Care Education/Training Program; Admitting Provider Family Medicine; Emergency Provider Physician Assistant; PCP Registered Nurse; Visit Provider Internal Medicine
DX: I25.119 Atherosclerotic heart disease of native coronary artery with unspecified angina pectoris (principal); I69.954 Hemiplegia and hemiparesis following unspecified cerebrovascular disease affecting left non-dominant side; N13.30 Unspecified hydronephrosis; Z68.41 Body mass index [BMI] 40.0-44.9, adult; I50.32 Chronic diastolic (congestive) heart failure; I11.0 Hypertensive heart disease with heart failure; E78.5 Hyperlipidemia, unspecified; E11.42 Type 2 diabetes mellitus with diabetic polyneuropathy; I25.2 Old myocardial infarction; G47.33 Obstructive sleep apnea (adult) (pediatric); J44.9 Chronic obstructive pulmonary disease, unspecified; K21.9 Gastro-esophageal reflux disease without esophagitis; L40.9 Psoriasis, unspecified; R68.84 Jaw pain; F32.A Depression, unspecified; E66.9 Obesity, unspecified; Z95.1 Presence of aortocoronary bypass graft; Z99.89 Dependence on other enabling machines and devices; Z87.01 Personal history of pneumonia (recurrent); Z86.718 Personal history of other venous thrombosis and embolism; Z87.11 Personal history of peptic ulcer disease; Z87.442 Personal history of urinary calculi; Z87.891 Personal history of nicotine dependence; Z79.84 Long term (current) use of oral hypoglycemic drugs; Z79.82 Long term (current) use of aspirin; Z86.16 Personal history of COVID-19
CPT/HCPCS: 36415; 71046; 80048; 80053; 82948; 83690; 83880; 84484; 85025; 85027; 85055; 85610; 85730; 93005; 94640; 96374; 96375; 99285; A9270; G0378; J2270; J2405

== ENCOUNTER 2024-11-04 11:18 | Emergency (ER) | payer MEDICARE, MEDICAID, SELFPAY ==
--- OUTSIDE RECORDS SUMMARY | 2024-07-04 05:10 | XMS_ITS ---
[facility] Address [address] [place], [place] [id number] Care Team Providers Care Manager Statistical Name Role Phone PIETER WALSH Unavailable [phone] Sandi Alfaro Unavailable Unavailable REASON FOR VISIT dropped rolling pin on right foot. - canc. by pt., in hospital Encounters Encounter Location Date Provider Diagnosis [facility] [place] [address] [facility] [address] [place], [place] [id number] 07/04/2024 PIETER WALSH Plan Of Treatment Next Appt Details Provider Name:PIETER WALSH, 08:00:00 AM, [address], [facility] [address], [place], [place], [id number], Progress Notes * KLAUDIA HALEY BDOB:[birth year] (64 yo M)Acc No.[id number]:07/04/2024 Patient: Trina BISHOP KLAUDIA Marin Provider: Kristal Walsh DPM :1960 A ge:64 Y S ex:Male Date:07/04/2024 Address:[address], [place] Subjective: * Chief Complaints: * 1 . Dropped rolling pin on right foot. - canc. by pt., in hospital. * Medical History: Objective: * Vitals: Assessment: Plan: * Treatment: * Billing Information: * Visit Code: * Procedure Codes: * Electronic signature of PIETER WALSH DPM on 11/04/2024 at 11:36 AM CDT Sign off status: Pending * Provider: Kristal Walsh DPM Date: 0 07/04/2024 Generated for Michelle Drummond/Nimesh on: 0 11/04/2024 11:36 AM CDT
[2024-11-04] VITALS (9 sets, daily range): BP systolic 140–169; BP diastolic 76–93; PULSE 69–73; RESP 16–25; TEMP 36.6; O2SAT 96–98
--- NOTE | ~2024-11-04 | CT_ITS ---
EXAMINATION: CTA chest abdomen pelvis DATE: 11/04/2024 14:21 CDT INDICATION: Chest pain and shortness of breath. Left-sided arm and leg pain. Evaluate for dissection. TECHNIQUE: Computed tomographic angiography (CTA) of the chest, abdomen, and pelvis was performed without and with 100 mL Omnipaque-350 intravenous contrast. The dose-length product was 1902.26 mGy-cm. Maximum intensity projection 3D- reconstructions of the aorta and other arteries were constructed by the technologist on a separate workstation. COMPARISON: CT dated 09/10/2024. FINDINGS: CHEST CTA: Trace left pleural effusion. No significant vascular abnormality. Heart size normal. No thoracic lymphadenopathy. There is dependent atelectasis. No endobronchial lesions. No suspicious pulmonary nodules or masses. ABDOMEN AND PELVIS CTA: Fatty infiltration of the liver. No significant vascular abnormality. Enlarged prostate gland. Small fat-containing inguinal hernias. 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 There is a right renal cyst. Status post cholecystectomy. Moderate thoracic and lumbar spondylosis. There is punctate 3 mm nonobstructing left renal stone. Normal appendix. Nonobstructive bowel gas pattern. No significant vascular abnormality. No lymphadenopathy. IMPRESSION: 1. No acute abnormality of the chest, abdomen or pelvis. Reviewed, dictated and finalized at location O.
--- NOTE | ~2024-11-04 | XR_ITS ---
EXAM/PROCEDURE: XR chest 2V - 11/04/2024 11:59 CDT HISTORY: 64 years old Male with chest pain TECHNIQUE: Two view(s) of the chest. COMPARISON: None available. FINDINGS: LUNGS/ PLEURA: Bibasilar opacities may represent atelectasis, scarring versus pneumonia. No large pleural effusions or pneumothorax. HEART/ MEDIASTINUM: Heart appears normal in size. BONES: Degenerative changes. OTHER: Visualized upper abdomen is unremarkable. IMPRESSION: Bibasilar opacities may represent atelectasis, scarring versus pneumonia. Findings can represent pneumonia in appropriate clinical settings. Clinical correlation is recommended. Short-term follow-up chest radiograph is recommended after appropriate clinical therapy to document stability and/or resolution. Reviewed, dictated and finalized at location N. IMPRESSION: Bibasilar opacities may represent atelectasis, scarring versus pneumonia. Findi ngs can represent pneumonia in appropriate clinical settings. Clinical correlat ion is recommended. Short-term follow-up chest radiograph is recommended after appropriate clinical therapy to document stability and/or resolution.
--- NOTE | ~2024-11-04 | US_ITS ---
EXAMINATION:US venous doppler LE BI INDICATION:Leg edema TECHNIQUE: Multiple grayscale, color flow and Doppler images of the bilateral lower extremity deep venous systems were obtained and reviewed. COMPARISON:11/08/2019 FINDINGS: The common femoral, superficial femoral and popliteal veins demonstrate normal respiratory variation, augmentation and compressibility. Color flow is also seen within the posterior tibial, peroneal, greater saphenous and profunda veins. IMPRESSION: 1: No lower extremity deep venous thrombosis. Reviewed, dictated and finalized at location O.
--- NOTE | 2024-11-04 11:21 | ECG_ITS ---
Test Date: 2024-11-04 11:29:41 Measurements Intervals [place] Rate: 71 P: 49 NC: 168 QRS: -3 QRSD: 149 T: 23 QT: 433 QTc: 471 Interpretive Statements SINUS RHYTHM RIGHT BUNDLE BRANCH BLOCK [120+ ms QRS DURATION, UPRIGHT V1, 40+ ms S IN I/aVL/V4/V5/V6] INFERIOR INFARCT, OLD Compared to ECG 10/16/2024 18:32:15 NO SIGNIFICANT CHANGES Electronically Signed On 11-04-2024 12:44:46 CDT by Fernando Modi M.D.
--- OUTSIDE RECORDS SUMMARY | 2024-11-04 11:36 | XMS_ITS | Patient Health Record ---
Author Organization [facility] Address [address] [place], [place] [id number] Care Team Providers Care Twist Tester Name Role Phone PIETER WALSH Unavailable [phone] Sandi Alfaro Unavailable Unavailable Allergies No Known Allergies Reason For Referral No Information Medications Medication SIG (Take, Route, Frequency, Duration) Notes Start Date End Date Status Plavix Active Xarelto Active Augmented betamethasone 0.5 MG/ML Topical Cream CUTANEOUS Augmented betamethasone 0.5 MG/ML Topical CreamOriginal MedicationAugmented betamethasone 0.5 MG/ML Topical Cream *Reorder from Apps[employer]All for eRx and Interaction Alerts* 7 Active clotrimazole 10 MG/ML Topical Cream CUTANEOUS clotrimazole 10 MG/ML Topical CreamOriginal Medicationclotrimazole 10 MG/ML Topical Cream *Reorder from Apps[employer]All for eRx and Interaction Alerts* 7 Active betamethasone 0.5 MG/ML / clotrimazole 10 MG/ML Topical Cream CUTANEOUS betamethasone 0.5 MG/ML / clotrimazole 10 MG/ML Topical CreamOriginal Medicationbetamethasone 0.5 MG/ML / clotrimazole 10 MG/ML Topical Cream *Reorder from Apps[employer] for eRx and Interaction Alerts* 7 Active betamethasone 0.5 MG/ML / clotrimazole 10 MG/ML Topical Cream [Lotrisone] CUTANEOUS betamethasone 0.5 MG/ML / clotrimazole 10 MG/ML Topical Cream [Lotrisone]Original Medicationbetamethasone 0.5 MG/ML / clotrimazole 10 MG/ML Topical Cream [Lotrisone] *Reorder from Apps[employer]All for eRx and Interacti 7 Active clobetasol propionate 0.0005 MG/MG Topical Ointment [Temovate] CUTANEOUS clobetasol propionate 0.0005 MG/MG Topical Ointment [Temovate]Original Medicationclobetasol propionate 0.0005 MG/MG Topical Ointment [Temovate] *Reorder from [email or web address] for eRx and Interaction Alerts* 7 Active [...] Location Date Provider Diagnosis [facility] [address] [place] [address] [id number] 11/09/2023 PIETER SNOOK Tinea unguium B35.1 ; Pain in right toe(s) M79.674 ; Pain in left toe(s) M79.675 ; Atherosclerosis of [place] arteries of extremities with intermittent claudication, bilateral legs I70.213 and Type 2 diabetes mellitus with other circulatory complications E11.59 [facility] [address] [place] [address] [id number] 01/25/2024 PIETER SNOOK Tinea unguium B35.1 ; Pain in right toe(s) M79.674 ; Pain in left toe(s) M79.675 ; Atherosclerosis of [place] arteries of extremities with intermittent claudication, bilateral legs I70.213 and Type 2 diabetes mellitus with other circulatory complications E11.59 [facility] [address] [place] [address] [id number] 03/28/2024 PIETER SNOOK Tinea unguium B35.1 ; Pain in right toe(s) M79.674 ; Pain in left toe(s) M79.675 ; Atherosclerosis of [place] arteries of extremities with intermittent claudication, bilateral legs I70.213 and Type 2 diabetes mellitus with other circulatory complications E11.59 [facility] [place] [address] [place] [address] [id number] 06/27/2024 PIETER SNOOK Tinea unguium B35.1 ; Pain in right toe(s) M79.674 ; Pain in left toe(s) M79.675 ; Atherosclerosis of [place] arteries of extremities with intermittent claudication, bilateral legs I70.213 and Type 2 diabetes mellitus with other circulatory complications E11.59 [facility] [place] [address] [place] [address] [id number] 09/19/2024 PIETER SNOOK Tinea unguium B35.1 ; Pain in right toe(s) M79.674 ; Pain in left toe(s) M79.675 ; Atherosclerosis of [place] arteries of extremities with intermittent claudication, bilateral [...] toe(s) (ICD-10 - M79.675) 03/28/2024 Atherosclerosis of [place] arteries of extremities with intermittent claudication, bilateral legs (ICD-10 - I70.213) 06/27/2024 Pain in left toe(s) (ICD-10 - M79.675) 01/25/2024 Atherosclerosis of [place] arteries of extremities with intermittent claudication, bilateral [...] the Amputation Prevention Guide. 06/27/2024 Atherosclerosis of [place] arteries of extremities with intermittent claudication, bilateral legs (ICD-10 - I70.213) 09/19/2024 Atherosclerosis of [place] arteries of extremities with intermittent claudication, bilateral legs (ICD-10 - I70.213) 11/09/2023 Atherosclerosis of [place] arteries of extremities with intermittent claudication, bilateral [...] Appt Details Provider Name:PIETER WALSH, 08:00:00 AM, [address], [facility], [place], [place], [id number], Insurance Providers Payer Name Payer Address Payer Phone Subscriber Number Group Number Insured Name Patient Relationship to Insured Coverage Start Date Coverage End Date Medicare Part B [facility] [address] [place] [phone] [id number] KLAUDIA HALEY Self - patient is the insured Medical (General) History Medical History History ICD Code Diabetic
--- OUTSIDE RECORDS SUMMARY | 2024-11-04 11:37 | XMS_ITS | Encounter Summary ---
Author Organization [facility] Healthcare Address [address] [place] [address] Care Team Providers Care Forestry Crew Chief Name Role Phone Salo Forrest MD Primary Care Provider +- [phone] Sandi Alfaro Primary Care Provider + Encounter Details Date Type Department Care Team (Late st Contact Info) Description 08/03/2017 Orders Only [facility] Information Management [address] [place] [address] Scanning, Provider Social History Tobacco Use Types Packs/Day Years Used Date Smoking Tobacco: Former Smokeless Tobacco: Never Alcohol Use Standard Drinks/Week Comments Yes 0 (1 standard drink = 0.6 oz pur e alcohol) Sex and Gender Information Value Date Recorded Sex Assigned at Not on file Legal Sex Male 3:15 AM POLICY ADVISER Gender Identity Male 09/03/2018 6:22 AM CDT [...] on filedocumented in this encounter Care Teams Forestry Crew Chief Relationship Specialty Start Date End Date Salo Forrest MD [address] [place] [address] PCP - General 3/31/17 6/21/18 Sandi Alfaro PA [address] [place] [address] PCP - General Nurse Practitioner 08/21/17 documented as of this encounter
--- OUTSIDE RECORDS SUMMARY | 2024-11-04 11:37 | XMS_ITS | Encounter Summary ---
Author Organization [facility] Healthcare Address [address] [place] [address] Care Team Providers Care Dcs Engineer Name Role Phone Salo Forrest MD Primary Care Provider +- [phone] Sandi Alfaro Primary Care Provider + Encounter Details Date Type Department Care Team (Late st Contact Info) Description 05/11/2017 Orders Only [facility] Information Management [address] [place] [address] Scanning, Provider Social History Tobacco Use Types Packs/Day Years Used Date Smoking Tobacco: Former Smokeless Tobacco: Never Alcohol Use Standard Drinks/Week Comments Yes 0 (1 standard drink = 0.6 oz pur e alcohol) Sex and Gender Information Value Date Recorded Sex Assigned at Not on file Legal Sex Male 3:15 AM QUALITY IMPROVEMENT MANAGER Gender Identity Male 09/03/2018 6:22 AM [...] on filedocumented in this encounter Care Teams Dcs Engineer Relationship Specialty Start Date End Date Salo Forrest MD [address] [place] [address] PCP - General 05/30/16 08/20/17 Sandi Alfaro PA [address] [place] [address] PCP - General Nurse Practitioner 08/21/17 documented as of this encounter
--- OUTSIDE RECORDS SUMMARY | 2024-11-04 11:37 | XMS_ITS | Encounter Summary ---
Author Organization [facility] Healthcare Address [address] [place] [address] Care Team Providers Care Stave Machine Tender Name Role Phone Sandi Alfaro Primary Care Provider + Encounter Details Date Type Department Care Team (Late st Contact Info) Description 07/20/2024 Orders Only [facility] Information Management [address] [place] [address] Scanning, Provider Social History Tobacco Use Types Packs/Day Years Used Date Smoking Tobacco: Some Days Cigarettes 0.3 15 Smokeless Tobacco: Never Alcohol Use Standard Drinks/Week Comments Yes 0 (1 standard drink = 0.6 oz pur e alcohol) Sex and Gender Information Value Date Recorded Sex Assigned at Not on file Legal Sex Male 3:15 AM PRO SHOP ATTENDANT Gender Identity Male 09/03/2018 6:22 AM [...] on filedocumented in this encounter Care Teams Stave Machine Tender Relationship Specialty Start Date End Date Sandi Alfaro PA PCP - General Nurse Practitioner 08/21/17 documented as of this encounter
--- OUTSIDE RECORDS SUMMARY | 2024-11-04 11:37 | XMS_ITS | Clinical Summary ---
Author Organization [facility] Address [address] [place] [address] Care Team Providers Care Floral Clerk Name Role Phone Sandi Alfaro DIE ATTACHING MACHINE TENDER-DICTATING TRANSCRIBING MACHINE SERVICER Primary Care Provider Source Comments [facility],non-owned Affiliates and Associated Physician Practices is amultiple site organization consisting of ambulatory clinics and hospital sitesin [place], [place], [place] and [place]. This disclosure is being madepursuant to the Care Everywhere program and may not contain all information available regarding this patient. Last updated 17.[facility] Allergies No known active allergies Medications * [...] on file Legal Sex Male 5:35 PM SENIOR SUPPORT ENGINEER Gender Identity Not on file Sexual [...] 2009 ZOSTER VACCINE (1 of 2) 2009 DEPRESSION SCREENING 03/02/2024 AAA SCREENING 2024 COVID-19 VACCINE (1 - 2023-2 5 season) 2024 INFLUENZA VACCINE (#1) 2024 Respiratory Syncytial [...] ORDERABLES F inal Result Performing Organization Address [facility] Co de Phone Number [address] [phone] * HEPATITIS C AB SCREEN RFLX NAAT [...] ORDERABLES Fi nal Result Performing Organization Address City/[facility]/ZIP Co de Phone Number [address] [address], [place] [phone] from Last 3 Months or Most Recently Relevant to Health Maintenance Insurance MEDICARE MEDICAID - OUT OF STATE MEDICARE MEDICAID - [place] Advance Directives * Full Code (Latest Code Status on File) Date Activated Date Inactivated Comments 05/26/2018 2:01 PM 05/28/2018 11:56 AM Care Teams Floral Clerk Relationship Specialty Start Date End Date Sandi Alfaro APRN-DICTATING TRANSCRIBING MACHINE SERVICER [address] [place] [id number] PCP - General 08/27/21
--- OUTSIDE RECORDS SUMMARY | 2024-11-04 11:37 | XMS_ITS | Encounter Summary ---
Author Organization [facility] Healthcare Address [address] [place] [address] Care Team Providers Care Pattern Drafter Name Role Phone Sandi Alfaro Primary Care Provider + Encounter Details Date Type Department Care Team (Late st Contact Info) Description 12/25/2023 Orders Only [facility] Health Information Management [address] [place] [address] Scanning, Provider Social History Tobacco Use Types Packs/Day Years Used Date Smoking Tobacco: Some Days Cigarettes 0.3 15 Smokeless Tobacco: Never Alcohol Use Standard Drinks/Week Comments Yes 0 (1 standard drink = 0.6 oz pur e alcohol) Sex and Gender Information Value Date Recorded Sex Assigned at Not on file Legal Sex Male 3:15 AM REGISTRY NP Gender Identity Male 09/03/2018 6:22 AM CDT [...] on filedocumented in this encounter Care Teams Pattern Drafter Relationship Specialty Start Date End Date Sandi Alfaro PA PCP - General Nurse Practitioner 08/21/17 documented as of this encounter
--- OUTSIDE RECORDS SUMMARY | 2024-11-04 11:37 | XMS_ITS | Clinical Summary ---
Author Organization [facility] [address] Address [address] [place] [address] Care Team Providers Care Claims Adjuster Name Role Phone Sandi Alfaro Primary Care [...] chest pain 75 tablet 3 3 Active omeprazole (PriLOSEC) 40 mg capsule 4 [...] 24 hr tabletIndicatio ns:Coronary artery disease of [place] artery of [place] heart with stable angina pectoris TAKE 2 TABLETS BY MOUTH EVERY DAY 180 tablet 1 5 Active furosemide (LASIX) 40 mg tablet Take 1 tablet (40 mg total) by mouth daily 90 tablet 5 10/20/19 26 Active rivaroxaban (Xarelto) 2.5 mg tablet Take 1 tablet (2.5 mg total) by mouth 2 (two) times a day 180 tablet 3 5 Active Xarelto 2.5 mg tablet TAKE 1 TABLET BY MOUTH TWICE A DAY 180 tablet 3 4 10/20/19 25 Discontinu ed(Reorder ) Active Problems Problem Noted Date Diagnosed Date Hematuria, gross 11/13/2021 Chronic heart failure with preserved ejection fr action 11/12/2018 Cryptogenic stroke 07/06/2018 Status post placement of implantable loop record er 10/13/2017 Overview (10/13/2017): Medtronic Reveal Loop Recorder. Dx; Cryptogenic Stroke. DOI 10/12/[address] Willoughby. Carelink remote monitoring. TIA (transient ischemic attack) 10/06/2017 S/P coronary artery stent placement 12/17/2016 Morbid obesity with BMI of 45.0-49.9, adult ([facility]) 08/13/2016 Mixed anxiety depressive disorder 05/01/2015 Overview (06/07/2016): Anxiety and depression Coronary artery disease of n ative artery of [place] heart with stable angina pectoris 02/20/2015 Overview (06/07/2016): Coronary artery disease involving [place] coronary artery of [place] heart with other form of angina pectoris CVA, old, hemiparesis 02/20/2015 Overview (06/07/2016): CVA, old, hemiparesis Mixed diabetic hyperlipidemi a associated with type 2 diabetes mellitus ([facility]) 02/20/2015 Overview (06/07/2016): DM type 2 with diabetic dyslipidemia Hypertensive heart disease with congestive heart failure 02/20/2015 Overview (06/07/2016): Hypertensive heart disease with diastolic heart failure TAMIR on CPAP 10/17/2014 Overview (06/07/2016): TAMIR on CPAP Diabetes mellitus 10/17/2014 Overview (06/07/2016): DM (diabetes mellitus) Hypertension associated with diabetes 10/17/2014 Overview (06/07/2016): HTN (hypertension), benign Encounters Date Type Department Care Team Description 10/25/2024 Orders Only [facility] Cardiology [address] [place] [address] Nathan Sanchez MD 10/14/2024 Telephone [facility] Cardiology [address] [place] [address] Fernando Modi MD from Last [...] on file Legal Sex Male 3:15 AM OPTICAL ASSISTANT Gender Identity Male 09/03/2018 6:22 AM [...] of 2) 2009 Hemoglobin A1C 11/26/2018 05/26/2018 Abdominal Aortic Aneurysm (A AA) Screen 2024 04/28/2017 Well Visit 65+ 2024 Lipid Panel 10/19/2024 10/20/2023, 04/30, 07/01/2022, Additional history exists Covid-19 Vaccine (4 - 2024-2 6 season) 2024 12/31/2020, 05/11/2020, 04/13/2020 Influenza Vaccine (#1) 2024 , 12/23/2022, 12/31/2021, Additional history exists DTaP/Tdap/Td Vaccine (3 - Td or Tdap) 02/25/2026 02/26/2016, 11/22/2014 Procedures Procedure Name Priority Date/Time Associated Diagnosis Comments CARDIOLOGY DOCUMENT SCAN Routine 10/17/2024 7:54 AM CDT LIPID PANEL Routine 10/20/2023 from Last 3 Months or Most Recently Relevant to Health Maintenance Results * Cardiology Document Scan (10/17/2024 7:54 AM CDT) Anatomical Region Laterality Modality Other Nathan Sanchez MD CV CARDIAC SERVICES PROCEDU RES Final Result * (ABNORMAL) Lipid panel (10/20/2023) SCRIBED Cholesterol, Total 87 < - 200 EXTERNAL LAB SCRIBED HDL 24 > - 40 EXTERNAL LAB SCRIBED LDL 20 < - 100 EXTERNAL LAB SCRIBED Triglycerides 213(A) < - 150 EXTERNAL LAB Blood 10/20/2023 Historical Provider LAB BLOOD ORDERABLES Elida khushi Result EXTERNAL LAB from Last 3 Months or Most Recently Relevant to Health Maintenance Insurance [facility] MEDICARE MEDICARE [facility] [place] [address] Care Teams Claims Adjuster Relationship Specialty Start Date End Date Sandi Alfaro PA PCP - General Nurse Practitioner 08/21/17
[2024-11-04 11:42] LABS: Hematocrit 43.1 % (42.0-52.0); Hemoglobin 14.4 g/dL (14.0-18.0); Immature Granulocyte Percent A 0.2 % (0-0.5); Immature Platelet Fraction Pct 6.0 % (0.9-11.2); Lymphocytes Absolute Auto 0.98 K/mm3 (0.9-3.2); Mean Corpuscular HGB Conc 33.4 g/dl (32-36); Mean Corpuscular Hemoglobin 29.8 pg (26-34); Mean Corpuscular Volume 89.0 fl (80-100); Nucleated Red Blood Cells Absolute Auto 0.000 K/mm3 (0.0-0.012); Nucleated Red Blood Cells Perc 0.0 % (0.0-0.2); Platelet Count Result 123 k/mm3 (150-375); Red Blood Count 4.84 M/mm3 (4.6-6.20); White Blood Count 6.0 K/mm3 (4.5-10.0)
[2024-11-04 11:54] LABS: INR 1.1; Prothrombin Time 14.2 Seconds (11.1-14.7)
[2024-11-04 11:55] LABS: Partial Thromboplastin Time 29.3 Seconds (22.3-36.8)
[2024-11-04 12:05] LABS: Alanine Aminotransferase 36 U/L (6-50); Albumin Level 4.6 g/dL (3.5-5.1); Alkaline Phosphatase 70 U/L (38-126); Anion Gap 12 mmol/L (4-12); Aspartate Amino Transferase 29 U/L (17-59); Bilirubin,Total 0.8 mg/dL (0.2-1.3); Blood Urea Nitrogen 17 mg/dL (9-20); Calcium 9.5 mg/dL (8.4-10.2); Carbon Dioxide 23 mmol/L (22-30); Chloride 100 mmol/L (98-107); Estimated CRCL calculation 85 ml/min; Estimated Glomerular Filt Rate > 60; Glucose 258 mg/dL (65-110); Lipase 179 U/L (23-300); Potassium 4.2 mmol/L (3.4-5.0); Sodium 135 mmol/L (137-145); Total Protein 8.2 g/dL (6.3-8.2)
[2024-11-04] MEDS: ASPIRIN 81 MG CHEWABLE TABLET 324 MG PO (12:11)
[2024-11-04 12:17] LABS: Troponin I < 0.012 ng/mL (0.000-0.034)
--- NOTE | 2024-11-04 13:24 | ED.CHESTPAIN ---
HPI - Chest Pain General Chief Complaint: Chest Pain Stated Complaint: chest pain today Time Seen by Provider: 11/04/24 13:12 Source: patient Mode of arrival: ambulatory Limitations: no limitations History of Present Illness HPI narrative: Patient presents with report of sudden onset chest pain and shortness of breath. He reports that chest pain as in the center of his chest a slightly to the left. This is associated with nausea but no vomiting. He has been having fevers and chills and also with been having a dry nonproductive cough. He attributes this cough to a tickle in his throat for which he was told was due to a medication side effect. He was told this at cardiac rehab. Patient does not believe he is on lisinopril. Patient has an extensive cardiac history including multiple myocardial infarctions and has 3 stents. He has had 3 cardiac catheterizations within the past year and also had an echo performed within the past year. He also has a history of multiple TIAs and 2 CVAs which read him with some left-sided deficits. He reports that his chest pain today radiates into his left back as well as into his left arm and he was also having some left leg pain. Patient quit smoking in January 2024. He has diabetes mellitus but is not on insulin. Patient's systems technician is Dr. Modi (previously [facility]). Patient is on both Plavix and Xarelto. Denies any history of DVT or PE. His symptoms began after eating at [employer]. Patient reports the pain is 7 out 10 in severity and constant. He reports that when his symptoms began he felt like he was hit by a truck and this is unusual as he is normally jovial/joking but just doesn't feel like it right now. He is on furosemide in reports he has been taking compliant with this medication. He does feel like he has had lower extremity edema, left more so than the right. Reports having lost 40-50 pounds in the past few years. Cardiac risk factors HTN: Yes HLD: Unknown though on statin at the very least for prevention DM: Yes Obese: Yes Smoker: Former (quit >3 mos ago) Personal history MO/TIA/CVA: Yes - CAD, MO, TIA, and CVA Fam Hx MO in first degree relative <65yo: Yes, father Related Data Home Medications ?Medication ?Instructions ?Recorded ?Confirmed ?Last Taken ?Type amlodipine 10 mg tablet 10 mg PO DAILY 01/24/19 10/16/24 10/16/24 History bupropion HCl 150 mg tablet,12 hr 150 mg PO Q12H 01/24/19 10/16/24 10/16/24 History sustained-release (Wellbutrin SR) metformin 1,000 mg tablet 1,000 mg PO BID 01/24/19 10/16/24 10/16/24 History isosorbide mononitrate 60 mg 120 mg PO DAILY 01/09/20 10/16/24 10/16/24 History tablet,extended release 24 hr alprazolam 0.25 mg tablet 0.25 mg PO HS 08/21/21 10/16/24 10/15/24 History atorvastatin 80 mg tablet 80 mg PO DAILY 06/13/24 10/16/24 10/16/24 History dulaglutide 3 mg/0.5 mL 3 mg subcut WEEKLY 06/13/24 10/16/24 10/11/24 History subcutaneous pen injector (Trulicity) furosemide 40 mg tablet 40 mg PO DAILY 06/13/24 10/16/24 10/09/24 History budesonide 160 mcg-glycopyr 9 2 inh inhalation BID 06/28/24 10/16/24 08/16/24 History mcg-formot 4.8 mcg/actuation HFA inhaler (Breztri Aerosphere) rivaroxaban 2.5 mg tablet (Xarelto) 2.5 mg PO Q12H 07/12/24 10/16/24 10/16/24 History doxazosin 2 mg tablet 2 mg PO HS 08/19/24 10/16/24 10/15/24 History losartan 100 mg tablet 100 mg PO DAILY 09/10/24 10/16/24 10/16/24 History Allergies Allergy/AdvReac Type Severity Reaction Status Date / Time No Known Allergies Allergy Unknown Verified 11/04/24 11:26 [facility] Past Medical History Medical History Thrombocytopenia Hypertension Coronary artery disease Stent to the distal circumflex and Left anterior descending in 2014. Left anterior descending stent in 04/2015. COVID Transient ischemic attack multiple Diabetic peripheral neuropathy Peripheral vascular disease Deep venous thrombosis Gastric ulcer Obstructive sleep apnea on CPAP Hyperlipidemia Type 2 diabetes mellitus not on insulin Gastroesophageal reflux disease Chronic obstructive pulmonary disease Cerebrovascular accident x2; Mild left-sided weakness. Congestive heart failure BMI greater than 40 Chronic anticoagulation Hydronephrosis Psoriasis Depression Fracture of fifth toe, right, closed Kidney stones Pneumonia Myocardial infarction Seasonal allergies Surgical History Surgical History History of coronary artery stent placement x3 History of tonsillectomy History of cholecystectomy History of lithotripsy History of rectal polypectomy History of cardiac catheterization multiple Family History Family History Mother Diabetes mellitus Arthritis Kidney stones Coronary artery disease Father Acute myocardial infarction <65yo Heart disease Kidney stones Hypertension Coronary artery disease Sibling Coronary artery disease Heart disease Hx of CABG Social History Social History (Updated 11/04/24 @ 16:20 by Yaima Liu MD) Social History: Surrogate decision maker: Rena Dodd, friend. Code status: Full code. Reports having a grandchild (who plays baseball) though previously reported that he doesn't have children Smoking packs per day: 1 Smoking cigarettes per day: 20.0 Years smoked: 47 Smoking pack-years: 47.00 Smoking status: Former smoker Tobacco type: cigarettes Second hand tobacco smoke exposure: Yes Smoking end date: 02/22/24 Alcohol intake: former Drinks per week: 0 Substance use: never Substance use type: does not use Last use: 10/01/2023 Do You Feel Safe in your Home?: Yes Lack of Transportation: No Lack of Food: Never True Current Housing: I Have Housing Concerned About Future Housing: No Difficulty Paying Gas/Electric Bills: No Difficulty Paying for Meds: No Currently Unemployed: No Education: High School Diploma/GED Difficulty w/ Childcare or Family Care: No Living arrangements: with roommate(s) Additional living arrangements comments: The patient lives in [place] with a roommate. He has no children. Occupation/Education: other Additional occupation/education comments: Disabled. Spiritual care concerns: No Exam Narrative: GENERAL: Well-appearing, well-nourished, and in no acute distress. HEAD: Normocephalic, atraumatic. EYES: Non injected, non icteric ENT: Nares clear, no rhinorrhea or epistaxis. Gross auditory acuity intact. NECK: Supple. No meningismus. CHEST: Speaking in full sentences. No respiratory distress. Lungs clear to auscultation bilaterally without appreciable wheezes or crackles. HEART: Regular rate and rhythm. . ABDOMEN: Obese but Soft, nondistended. EXTREMITIES: Normal range of motion. Lower extremity edema, 1+ right and 2+ left. SKIN: Warm, dry, no rash. NEURO: No focal deficits. Alert and oriented. Answering questions. Following commands. Normal speech without aphasia or dysarthria. PSYCH: Normal mood and affect. Course Vital Signs Vital signs: Vital Signs Temperature 98 F 11/04/24 11:24 Pulse Rate 72 11/04/24 11:24 Respiratory Rate 16 11/04/24 11:24 Blood Pressure 169/93 H 11/04/24 11:24 Pulse Oximetry 98 11/04/24 11:24 Oxygen Delivery Room Air 11/04/24 11:24 Temperature 98 F 11/04/24 11:24 Pulse Rate 69 11/04/24 16:37 Respiratory Rate 16 11/04/24 16:37 Blood Pressure 150/89 H 11/04/24 16:37 Pulse Oximetry 98 11/04/24 16:37 Oxygen Delivery Room Air 11/04/24 11:38 MDM - Chest Pain MDM Narrative Medical decision making narrative: Patient presents with acute onset chest pain and shortness of breath. In the emergency department he is afebrile with vital signs notable for hypertension. This improved on repeat assessment without interval intervention. Patient has extensive cardiac history including CAD status post multiple myocardial infarctions and 3 stents as well as TIA and CVA. Patient also has a history of GERD per review of EMR. Multiple risk factors also include hyperlipidemia per review of EMR, non insulin-dependent diabetes mellitus, obesity. HEART SCORE History 2 highly suspicious 1 moderately suspicious 0 slightly suspicious History score [address] depression/elevation not due to LBBB, LVH, or digoxin [address] depression but LBBB, LVH, nonspecific repolarization changes 0 normal ECG score 0 Age 2 >/= 65 1 45-64 0 <45 Age score 2 Risk factors (HTN, hypercholesterolemia, DM, obesity with BMI >30, current smoker or cessation </=3mo), positive fam hx with parent or sibling with CVD before age 65, atherosclerotic disease (prior MO, PCI/CABG, CVA/TIA, or peripheral arterial disease) 2 >/= 3 risk factors or history of atherosclerotic dz 1 - 1-2 risk factors 0 no known risk factors Risk factor score 2 Initial Troponin 2 >3 times normal limit 1 1-3 times normal limit 0 less than or equal to normal limit Troponin score 0 Total HEART Score 5 Will give GI cocktail as well as nitroglycerin; Zofran ordered for nausea. Aspirin 100 to be given based on chest pain protocol from triage. Mild thrombocytopenia, chronic/stable. His hyperglycemia is without anion gap or acidosis. Pseudo hyponatremia as sodium corrects to 138/139 in the setting of elevated glucose. Chest x-ray as below is indeterminate as there is notation of possible pneumonia versus scarring verses atelectasis. CT normal as below, however. BNP, repeat troponin, and viral swab negative. Discussed patient with on-call systems technician Dr Modi (who is patient's systems technician). Loading Unit Tool Setter is aware of patient and notes that he will likely continue to intermittently have chest pain like this but otherwise is on optimal therapy per review of medication list. Does advise follow-up but despite HEART score, reasonable that this be performed in the outpatient setting given unlikely that any other interventions to be performed if admitted given he has had multiple interventions/work ups already, including several this year. Patient is already both furosemide and Imdur. Discussed this with patient who verifies understanding and is in agreement. Will call to see if cardiology wants him to move up his appointment (currently scheduled December). Differential Diagnosis Differential diagnosis: Likely stable angina, unstable angina pectoris, atypical chest pain, st elevation myocardial infarction, chest pain and other (ACS, PE, aortic dissection, acute on chronic heart failure, pneumonia acute viral syndrome GERD/gastritis) Medical Records Data Attestation: I reviewed the patient's medical records. Medical records narrative: ECHO May 2024 Summary 1. There is normal biventricular size and systolic function. 2. There are no significant valvular abnormalities. Left Ventricle The left ventricle is normal in size and systolic function. There is concentric left ventricular remodeling. The left ventricular ejection fraction is visually estimated to be 60-65%. Right Ventricle The right ventricle is normal in size and systolic function. Left Atria The left atrium is normal size. Right Atria The right atrium is normal size. Atrial Septum The atrial septum is normal. Aortic Valve The aortic valve is trileaflet and opens well. There is no aortic regurgitation. Pulmonic Valve The pulmonic valve is not well visualized. There is no pulmonic valve regurgitation. Mitral Valve The mitral valve is normal. There is no mitral regurgitation. Tricuspid Valve The tricuspid valve is not well visualized. There is trace tricuspid regurgitation. Pericardium/Pleural Pericardium is normal in appearance with no evidence for significant pericardial effusion. Inferior Vena Cava Normal inferior vena cava with >50% collapse upon inspiration consistent with normal right atrial pressure, 3 mmHg. Aorta The aortic root at the level of the sinus of Valsalva measures 3.1 cm in diameter. === Cardiac Cath performed here 07/04/2024 Lab Data Attestation: I reviewed the patient's lab results. 11/04/24 11:32 11/04/24 11:32 Labs: Lab Results 11/04/24 11/04/24 11/04/24 Range/Units 11:32 14:27 14:27 WBC 6.0 (4.5-10.0) K/mm3 RBC 4.84 (4.6-6.20) M/mm3 Hgb 14.4 (14.0-18.0) g/dL Hct 43.1 (42.0-52.0) % MCV 89.0 (80-100) fl MCH 29.8 (26-34) pg MCHC 33.4 (32-36) g/dl RDW 13.3 (11.5-14.5) % Plt Count 123 L (150-375) k/mm3 MPV 10.8 H (7.4-10.4) fl Immature Gran % (Auto) 0.2 (0-0.5) % Neut % (Auto) 71.5 (45.5-73.1) % Lymph % (Auto) 16.4 L (18.3-44.2) % Gillespie % (Auto) 9.4 H (2.6-8.5) % Eos % (Auto) 2.2 (0-4.4) % Baso % (Auto) 0.3 (0.2-1.2) % Lymph # (Auto) 0.98 (0.9-3.2) K/mm3 Gillespie # (Auto) 0.6 (0.1-0.6) K/mm3 Eos # (Auto) 0.1 (0-0.3) K/mm3 Baso # (Auto) 0.0 (0.0-0.1) K/mm3 Abs Immat Gran (auto) 0.01 (0.00-0.031) K/mm3 Absolute Neuts (auto) 4.3 (1.3-6.7) K/mm3 Absolute Nucleated RBC 0.000 (0.0-0.012) K/mm3 Nucleated RBC % 0.0 (0.0-0.2) % % Immature Plt Fraction 6.0 (0.9-11.2) % PT 14.2 (11.1-14.7) Seconds INR 1.1 APTT 29.3 (22.3-36.8) Seconds D-Dimer 1.02 H (<0.48) ug/mL Sodium 135 L (137-145) mmol/L Potassium 4.2 (3.4-5.0) mmol/L Chloride 100 (98-107) mmol/L Carbon Dioxide 23 (22-30) mmol/L Anion Gap 12 (4-12) mmol/L BUN 17 (9-20) mg/dL Creatinine 1.11 (0.7-1.3) mg/dL Estim Creat Clear Calc 85 ml/min Estimated GFR > 60 (59 - ) Glucose 258 H (65-110) mg/dL Calcium 9.5 (8.4-10.2) mg/dL Total Bilirubin 0.8 (0.2-1.3) mg/dL AST 29 (17-59) U/L ALT 36 (6-50) U/L Alkaline Phosphatase 70 (38-126) U/L Troponin I < 0.012 < 0.012 (0.000-0.034) ng/mL NT-Pro-B Natriuret Pep 82 Cancelled (19.9-100) pg/mL Total Protein 8.2 (6.3-8.2) g/dL Albumin 4.6 (3.5-5.1) g/dL Lipase 179 (23-300) U/L Influenza A (RT-PCR) Negative (Negative) Influenza B (RT-PCR) Negative (Negative) RSV (RT-PCR) Negative (Negative) SARS-CoV-2 RNA (RT-PCR) Negative (Negative) Imaging Data Radiologist's impression: Impressions Chest X-Ray 11/04/24 12:48 IMPRESSION: Bibasilar opacities may represent atelectasis, scarring versus pneumonia. Findings can represent pneumonia in appropriate clinical settings. Clinical correlation is recommended. Short-term follow-up chest radiograph is recommended after appropriate clinical therapy to document stability and/or resolution. Chest/Abdomen/Pelvis CTA 11/04/24 14:20 IMPRESSION: 1. No acute abnormality of the chest, abdomen or pelvis. Venous Doppler Study 11/04/24 16:07 IMPRESSION: 1: No lower extremity deep venous thrombosis. ECG Data EKG #1: Attestation: I personally reviewed and interpreted this ECG as follows: ECG completion date: 11/04/24 ECG completion time: 11:29 Prior ECG tracings: available for review (10/16/2024, similar) Interpretation: Normal sinus rhythm at a rate of 71 beats per minute. IA interval 168. QRS 149. QT/QTC 433/471. RBBB given QRS greater [id number]; RSR' M-shaped pattern in V1-V3; wide, slurred S wave in lateral leads (I, aVL, V5-6) EKG #2: Attestation: I personally reviewed and interpreted this ECG as follows: ECG completion date: 11/04/24 ECG completion time: 14:29 Interpretation: Normal sinus rhythm at a rate of 64 beats per minute. IA interval 173. QRS 84. QT/QTC 441/451. Good R-wave progression across the precordial leads. T-wave flattening in 3 but otherwise upright in normal in contiguous inferior leads. No other T-wave inversions. RBBB given QRS greater [id number]; RSR' M-shaped pattern in V1-V3; wide, slurred S wave in lateral leads (I, aVL, V5-6) Discharge Plan Discharge Clinical Impression: Chest pain, Shortness of breath, Thrombocytopenia, Hyperglycemia due to diabetes mellitus, Pseudohyponatremia Patient Disposition: Home Condition: Stable Instructions: Antibiotic Form, Chest Pain (DC), Diabetic Hyperglycemia (ED), Shortness of Breath (ED), Mediterranean Diet (DC) Additional Instructions: Continue taking all of your medications as prescribed. Follow-up with your systems technician in any other members of your amy care team including primary care physician. Return to the emergency department with any new, worsening, or recurring symptoms given your risk factors/history. Patient Language: Urdu Prescriptions: No Action [employer] 160-9-4.8 mcg/actuation HFA aerosol inhaler 2 inh INHALATION BID losartan 100 mg tablet 100 mg PO DAILY cholestyramine (with sugar) [Questran] 4 gram powder in packet 4 g PO BID 30 Days Qty: 60 5RF Rx Instructions: administer w/meal; avoid other meds within 1hr before or 4-6hr after dose isosorbide mononitrate 60 mg tablet extended release 24 hr 120 mg PO DAILY carvedilol [Coreg] 12.5 mg Tablet 12.5 mg PO Q12HR Qty: 60 0RF nitroglycerin [Nitrostat] 0.4 mg Tablet, Sublingual 0.4 mg sublingual Q5MIN PRN (Reason: Chest Pain) Qty: 26 0RF omeprazole 40 mg capsule,delayed release(DR/EC) 40 mg PO DAILY Qty: 30 0RF tamsulosin 0.4 mg capsule 0.4 mg PO HS Qty: 30 0RF Jardiance 10 mg tablet 10 mg PO DAILY Qty: 30 0RF atorvastatin 80 mg tablet 80 mg PO DAILY Trulicity 3 mg/0.5 mL pen injector 3 mg SUBCUT WEEKLY Patient Comments: TAKES ON Tuesdays furosemide 40 mg tablet 40 mg PO DAILY clopidogrel 75 mg Tablet 75 mg PO QAM Qty: 30 0RF sacubitril-valsartan [Entresto] 24-26 mg Tablet 1 tab PO Q12HR Qty: 30 0RF doxazosin 2 mg tablet 2 mg PO HS bupropion HCl [Wellbutrin SR] 150 mg tablet sustained-release 12 hr 150 mg PO Q12H amlodipine 10 mg tablet 10 mg PO DAILY Patient Comments: take off hold, pt is taking currently metformin 1,000 mg tablet 1,000 mg PO BID alprazolam 0.25 mg tablet 0.25 mg PO HS Rx Instructions: at bedtime rivaroxaban [Xarelto] 2.5 mg tablet 2.5 mg PO Q12H acetaminophen 500 mg tablet 1,000 mg PO TID PRN (Reason: matt) 7 Days Qty: 42 0RF ranolazine 500 mg tablet extended release 12 hr 500 mg PO Q12H 30 Days Qty: 60 0RF Follow-up/Referrals: Fernando Modi MD [Physician, Interventional Cardiology] Angelina,JOVITA Junior [Primary Care Provider] Time of Disposition: 16:22
--- OUTSIDE RECORDS SUMMARY | 2024-11-04 13:31 | XMS_ITS | Encounter Summary ---
Author Organization [facility] Healthcare Address [address] [place] [address] Care Team Providers Care Costume Seamstress Name Role Phone Salo Forrest MD Primary Care Provider +- [phone] Sandi Alfaro Primary Care Provider + Encounter Details Date Type Department Care Team (Late st Contact Info) Description 05/11/2017 Orders Only [facility] [place] Health Information Management [address] [place] [id number] Scanning, Provider Social History Tobacco Use Types Packs/Day Years Used Date Smoking Tobacco: Former Smokeless Tobacco: Never Alcohol Use Standard Drinks/Week Comments Yes 0 (1 standard drink = 0.6 oz pur e alcohol) Sex and Gender Information Value Date Recorded Sex Assigned at Not on file Legal Sex Male 3:15 AM TECHNOLOGY APPLICATIONS CONSULTANT Gender Identity Male 09/03/2018 6:22 AM [...] filedocumented in this encounter Care Teams Costume Seamstress Relationship Specialty Start Date End Date Salo Forrest MD [address] [place] [address] PCP - General 05/30/16 08/20/17 Sandi Alfaro PA [address] [place] [address] PCP - General Nurse Practitioner 08/21/17 documented as of this encounter
--- OUTSIDE RECORDS SUMMARY | 2024-11-04 13:31 | XMS_ITS | Encounter Summary ---
Author Organization [facility] Healthcare Address [address] [place] [address] Care Team Providers Care Athletic Equipment Manager Name Role Phone Sandi Alfaro Primary Care Provider + Encounter Details Date Type Department Care Team (Late st Contact Info) Description 07/20/2024 Orders Only [facility] [place] Health Information Management [address] [place] [id number] Scanning, Provider Social History Tobacco Use Types Packs/Day Years Used Date Smoking Tobacco: Some Days Cigarettes 0.3 15 Smokeless Tobacco: Never Alcohol Use Standard Drinks/Week Comments Yes 0 (1 standard drink = 0.6 oz pur e alcohol) Sex and Gender Information Value Date Recorded Sex Assigned at Not on file Legal Sex Male 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
--- OUTSIDE RECORDS SUMMARY | 2024-11-04 13:31 | XMS_ITS | Encounter Summary ---
Author Organization [facility] Healthcare Address [address] [place] [address] Care Team Providers Care Flat Sheet Maker Name Role Phone Sandi Alfaro Primary Care Provider + Encounter Details Date Type Department Care Team (Late st Contact Info) Description 12/25/2023 [place] Only [facility] [place] Information Management [address] [place] [id number] Scanning, Provider Social History Tobacco Use Types Packs/Day Years Used Date Smoking Tobacco: Some Days Cigarettes 0.3 15 Smokeless Tobacco: Never Alcohol Use Standard Drinks/Week Comments Yes 0 (1 standard drink = 0.6 oz pur e alcohol) Sex and Gender Information Value Date Recorded Sex Assigned at Not on file Legal Sex Male 3:15 AM FULL STACK SOFTWARE DEVELOPER Gender Identity Male 09/03/2018 6:22 AM CDT [...] on filedocumented in this encounter Care Teams Flat Sheet Maker Relationship Specialty Start Date End Date Sandi Alfaro PA PCP - General Nurse Practitioner 08/21/17 documented as of this encounter
--- OUTSIDE RECORDS SUMMARY | 2024-11-04 13:31 | XMS_ITS | Clinical Summary ---
Author Organization [facility] [employer] Address [address] [place] [address] Care Team Providers Care Distribution Center Administrator Name Role Phone Sandi Alfaro MEMBER OF TECHNICAL STAFF-DEBONER Primary Care Provider Source Comments [facility] [employer],non-owned Affiliates and Associated Physician Practices is amultiple site organization consisting of ambulatory clinics and hospital sitesin [place], [place], [place] and [place]. This disclosure is being madepursuant to the Care Everywhere program and may not contain all information available regarding this patient. Last updated 17.[facility] [employer] Allergies No known active allergies Medications * [...] on file Legal Sex Male 5:35 PM MANAGER RECRUITING Gender Identity Not on file Sexual Orientation [...] ORDERABLES F inal Result Performing Organization Address [facility] Co de Phone Number [address] [phone] * HEPATITIS C AB SCREEN RFLX NAAT QUANT (05/26/2018 4:21 PM CDT) Pathologist [facility] Hepatitis C Antibody Non-react kendell Non-reac [...] ORDERABLES Fi nal Result Performing Organization Address City/[facility]/ZIP Co de Phone Number [address] [address], [place] [phone] from Last 3 Months or Most Recently Relevant to Health Maintenance Insurance MEDICARE MEDICAID - OUT OF STATE MEDICARE MEDICAID - [place] Advance Directives * Full Code (Latest Code Status on File) Date Activated Date Inactivated Comments 05/26/2018 2:01 PM 05/28/2018 11:56 AM Care Teams Distribution Center Administrator Relationship Specialty Start Date End Date Sandi Alfaro APRN-DEBONER [address] [place] [id number] PCP - General 08/27/21
--- OUTSIDE RECORDS SUMMARY | 2024-11-04 13:31 | XMS_ITS | Encounter Summary ---
Author Organization [facility] Healthcare Address [address] [place] [address] Care Team Providers Care Import/Export Analyst Name Role Phone Salo Forrest MD Primary Care Provider +- [phone] Sandi Alfaro Primary Care Provider + Encounter Details Date Type Department Care Team (Late st Contact Info) Description 08/03/2017 Orders Only [facility] [place] Health Information Management [address] [place] [phone] Scanning, Provider Social History Tobacco Use Types Packs/Day Years Used Date Smoking Tobacco: Former Smokeless Tobacco: Never Alcohol Use Standard Drinks/Week Comments Yes 0 (1 standard drink = 0.6 oz pur e alcohol) Sex and Gender Information Value Date Recorded Sex Assigned at Not on file Legal Sex Male 3:15 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
--- OUTSIDE RECORDS SUMMARY | 2024-11-04 13:31 | XMS_ITS | Clinical Summary ---
Author Organization [facility] [place] [address] Address [address] [place] [address] Care Team Providers Care Fuel Operator Name Role Phone Sandi Alfaro Primary [...] Morbid obesity with BMI of 45.0-49.9, adult ([facility]) 08/13/2016 Mixed anxiety depressive disorder 05/01/2015 [...] diabetes mellitus (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
[2024-11-04] MEDS: NITROGLYCERIN SL 0.4 MG TABLET SUBLINGUAL ×2 (13:51→15:58)
--- NOTE | 2024-11-04 14:14 | ECG_ITS ---
Test Date: 2024-11-04 14:29:01 Measurements Intervals [place] Rate: 64 P: 33 MO: 173 QRS: 2 QRSD: 154 T: 30 QT: 441 QTc: 458 Interpretive Statements SINUS RHYTHM RIGHT BUNDLE BRANCH BLOCK [120+ ms QRS DURATION, UPRIGHT V1, 40+ ms S IN I/aVL/V4/V5/V6] INFERIOR INFARCT, OLD Compared to ECG 11/04/2024 11:29:41 NO SIGNIFICANT CHANGES Electronically Signed On 11-05-2024 10:40:56 CDT by Fernando Modi M.D.
[2024-11-04] MEDS: ONDANSETRON INJ 4 MG/2 ML VIAL IV PUSH (14:20)
[2024-11-04] MEDS: BELLADONNA ALK/PHENOB ELIX 10 ML, MAG HYDROX/ALUMINUM HYD/SIMETH 30 ML, LIDOCAINE 2% VI... PO (14:20)
[2024-11-04 15:03] LABS: NT Pro B Type Natriuretic Pept 82 pg/mL (19.9-100); Troponin I < 0.012 ng/mL (0.000-0.034)
[2024-11-04 15:13] LABS: Influenza A QL RT-PCR Negative (Negative); Influenza B QL RT-PCR Negative (Negative); RSV RNA, RT-PCR Negative (Negative); SARS-CoV-2 RNA PCR Negative (Negative)
== END 2024-11-04 16:38 | disposition home or self-care (01) ==
PROVIDERS: Emergency Medicine; Emergency Provider Student in an Organized Health Care Education/Training Program; PCP Registered Nurse
DX: R07.9 Chest pain, unspecified (principal); R06.02 Shortness of breath; E11.65 Type 2 diabetes mellitus with hyperglycemia; D69.6 Thrombocytopenia, unspecified; Z20.822 Contact with and (suspected) exposure to COVID-19; I25.2 Old myocardial infarction; I25.10 Atherosclerotic heart disease of native coronary artery without angina pectoris; I50.9 Heart failure, unspecified; I69.954 Hemiplegia and hemiparesis following unspecified cerebrovascular disease affecting left non-dominant side; E11.42 Type 2 diabetes mellitus with diabetic polyneuropathy; E11.51 Type 2 diabetes mellitus with diabetic peripheral angiopathy without gangrene; I73.9 Peripheral vascular disease, unspecified; E78.5 Hyperlipidemia, unspecified; K21.9 Gastro-esophageal reflux disease without esophagitis; G47.33 Obstructive sleep apnea (adult) (pediatric); J44.9 Chronic obstructive pulmonary disease, unspecified; L40.9 Psoriasis, unspecified; F32.A Depression, unspecified; Z95.5 Presence of coronary angioplasty implant and graft; Z87.442 Personal history of urinary calculi; Z87.01 Personal history of pneumonia (recurrent); Z86.718 Personal history of other venous thrombosis and embolism; Z86.0100 Personal history of colon polyps, unspecified; Z86.16 Personal history of COVID-19; Z87.891 Personal history of nicotine dependence; Z90.49 Acquired absence of other specified parts of digestive tract; Z79.85 Long-term (current) use of injectable non-insulin antidiabetic drugs; Z79.899 Other long term (current) drug therapy; Z79.84 Long term (current) use of oral hypoglycemic drugs; Z79.02 Long term (current) use of antithrombotics/antiplatelets; Z79.01 Long term (current) use of anticoagulants; I45.10 Unspecified right bundle-branch block
CPT/HCPCS: 36415; 71046; 71275; 74174; 80053; 83690; 83880; 84484; 85025; 85055; 85380; 85610; 85730; 87637; 93005; 93970; 96374; 99284; A9270; J2405; Q9967

== ENCOUNTER 2024-12-01 19:12 | Emergency (ER) | payer MEDICARE, MEDICAID, SELFPAY ==
--- OUTSIDE RECORDS SUMMARY | 2024-07-04 05:10 | XMS_ITS ---
[facility] Address [address] [place], [place] [id number] Care Team Providers Care Farmworker Rice Name Role Phone PIETER WALSH Unavailable [phone] Sandi Alfaro Unavailable Unavailable REASON FOR VISIT dropped rolling pin on right foot. - canc. by pt., in hospital Encounters Encounter Location Date Provider Diagnosis [facility] [place] [address] [facility] [address] [place], [place] [id number] 07/04/2024 PIETER WALSH Plan Of Treatment Next Appt Details Provider Name:PIETER WALSH, 11:10:00 AM, [address], [place], [place], [id number], Progress Notes * KLAUDIA HALEY BDOB:[birth year] (64 yo M)Acc No.[id number]:07/04/2024 Patient: Trina BISHOP KLAUDIA Marin Provider: Kristal Walsh DPM :1960 A ge:64 Y S ex:Male Date:07/04/2024 Address:[address], [id number] Subjective: * Chief Complaints: * 1 . Dropped rolling pin on right foot. - canc. by pt., in hospital. * Medical History: Objective: * Vitals: Assessment: Plan: * Treatment: * Billing Information: * Visit Code: * Procedure Codes: * Electronic signature of PIETER WALSH DPM on 12/01/2024 at 09:45 PM CDT Sign off status: Pending * Provider: Kristal Walsh DPM Date: 0 07/04/2024 Generated for Michelle Drummond/Nimesh on: 1 09:45 PM CDT
--- OUTSIDE RECORDS SUMMARY | 2024-11-21 03:00 | XMS_ITS ---
Author Organization [facility] Address [address] [place], [place] [id number] Care Team Providers Care Tailing Machine Operator Name Role Phone PIETER WALSH Unavailable [phone] Sandi Alfaro Unavailable Unavailable Allergies No Known [...] 10 MG/ML Topical Cream [Lotrisone] *Reorder from [facility] for eRx and Interacti 7 Active clobetasol propionate 0.0005 MG/MG Topical Ointment [Temovate] CUTANEOUS clobetasol propionate 0.0005 MG/MG Topical Ointment [Temovate]Original Medicationclobetasol propionate 0.0005 MG/MG Topical Ointment [Temovate] *Reorder from [facility] for eRx and Interaction Alerts* 7 Active clotrimazole 10 MG/ML Topical Cream CUTANEOUS clotrimazole 10 MG/ML Topical CreamOriginal Medicationclotrimazole 10 MG/ML Topical Cream *Reorder from [facility] for eRx and Interaction Alerts* 7 Active Augmented betamethasone 0.5 MG/ML Topical Cream CUTANEOUS Augmented betamethasone 0.5 MG/ML Topical CreamOriginal MedicationAugmented betamethasone 0.5 MG/ML Topical Cream *Reorder from [facility] for eRx and Interaction Alerts* 7 Active betamethasone 0.5 MG/ML / clotrimazole 10 MG/ML Topical Cream CUTANEOUS betamethasone 0.5 MG/ML / clotrimazole 10 MG/ML Topical CreamOriginal Medicationbetamethasone 0.5 MG/ML / clotrimazole 10 MG/ML Topical Cream *Reorder from [facility] for eRx and Interaction Alerts* 7 Active Vital Signs Height 72.00 in 11/21/2024 Weight 330 lbs 11/21/2024 BMI 44.75 kg/m2 11/21/2024 Height-cm 182.88 cm 11/21/2024 Weight-kg 149.69 kg 11/21/2024 Encounters Encounter Location Date Provider Diagnosis [facility] [address] [place] [id number] 11/21/2024 PIETER JILLIAN Tinea unguium B35.1 ; Pain in right toe(s) M79.674 ; Pain in left toe(s) M79.675 ; Atherosclerosis of [place] arteries of extremities with intermittent claudication, bilateral [...] toe(s) (ICD-10 - M79.675) 11/21/2024 Atherosclerosis of [place] arteries of extremities with intermittent claudication, bilateral [...] sooner if problems develop. Provider Name:PIETER WALSH, 11:10:00 AM, [address], [address], [phone], Progress Notes * KLAUDIA HALEY BDOB:[birth year] (64 yo M)Acc No.[id number]:11/21/2024 Patient: KLAUDIA DUONG Provider: Kristal Walsh DPM :1960 A ge:64 Y S ex:Male Date:11/21/2024 Address:[address] [place] [address] [id number] Subjective: * Chief Complaints: * 1 . Patient presents for at-risk foot care . The patient has painful toenails that are causing difficulty with ambulation and shoegear. The onset is gradual. The patient has diabetes mellitus. * HPI: H PI: General care P janet presents to the office for diabetic foot care. Patient states that their nails are thickened, elongated and painful. Patient states that it is aggravated by shoe gear. Onset is gradual., Patient is taking prescription blood thinners., Date last seen by Dr. Alfaro was September 2024., Initials ab. * Medical History: [place]. * Family [...] betamethasone 0.5 MG/ML Topical Cream *Reorder from [facility] for eRx and Interaction Alerts*, Taking betamethasone 0.5 MG/ML / clotrimazole 10 MG/ML Topical Cream CUTANEOUS , Notes to Pharmacist: betamethasone 0.5 MG/ML / clotrimazole 10 MG/ML Topical CreamOriginal Medicationbetamethasone 0.5 MG/ML / clotrimazole 10 MG/ML Topical Cream *Reorder from [facility] for eRx and Interaction Alerts*, Taking betamethasone 0.5 MG/ML / clotrimazole 10 MG/ML Topical Cream [Lotrisone] CUTANEOUS , Notes to Pharmacist: betamethasone 0.5 MG/ML / clotrimazole 10 MG/ML Topical Cream [Lotrisone]Original Medicationbetamethasone 0.5 MG/ML / clotrimazole 10 MG/ML Topical Cream [Lotrisone] *Reorder from [facility] for eRx and Interacti, Taking clobetasol propionate 0.0005 MG/MG Topical Ointment [Temovate] CUTANEOUS , Notes to Pharmacist: clobetasol propionate 0.0005 MG/MG Topical Ointment [Temovate]Original Medicationclobetasol propionate 0.0005 MG/MG Topical Ointment [Temovate] *Reorder from [facility] for eRx and Interaction Alerts*, Taking clotrimazole 10 MG/ML Topical Cream CUTANEOUS , Notes to Pharmacist: clotrimazole 10 MG/ML Topical CreamOriginal Medicationclotrimazole 10 MG/ML Topical Cream *[facility] [employer] for eRx and Interaction Alerts*, Medication List [...] - M79.675 4 . A therosclerosis of [place] arteries of extremities with intermittent claudication, bilateral [...] well as the Amputation Prevention Guide. * Preventive Medicine: Screenings: F all risk [...] of PIETER WALSH DPM on 12/01/2024 at 09:44 PM CDT Sign off status: Pending * Provider: Kristal Walsh DPM Date: 0 11/21/2024 Generated for Michelle chi/Danielle/Nimesh on: 1 09:44 PM CDT History and Physical Notes * [...]
[2024-12-01] VITALS (9 sets, daily range): BP systolic 112–143; BP diastolic 55–90; PULSE 74–87; RESP 14–22; TEMP 36.3–36.6; O2SAT 97–98
--- NOTE | ~2024-12-01 | CT_ITS ---
CT HEAD NON-CONTRAST CT C-SPINE Clinical History: headache Comparison: CT head 06/14/2024 Technique: Unenhanced axial images skull base to vertex. Coronal, sagittal reformats. Axial images thoracic inlet to skull base. Sagittal and coronal reformats. CT images acquired with automatic exposure control for dose reduction DLP: 681 mGy-cm Findings: Head: White matter changes, typically chronic microvascular ischemic disease. Small chronic infarct right centrum semiovale. Sulci, ventricles: Unremarkable. No intracerebral hemorrhage. No evidence acute territorial infarct. No mass effect, midline shift, intra-/extra-axial fluid collection. Bony calvarium intact. Visualized paranasal sinuses: Clear. Mastoid air cells: Clear. C-spine: No acute fracture or listhesis. Straightening of normal cervical lordosis. Moderate degenerative changes. Disc disease C5-6. Prevertebral soft tissues within normal limits. Visualized lung apices: Clear. Visualized thyroid: Unremarkable. No enlarged cervical nodes. IMPRESSION: HEAD: 1. No acute intracranial findings. C-SPINE: 1. No acute fracture. Reviewed, dictated and finalized at location R. IMPRESSION: HEAD: 1. No acute intracranial findings. C-SPINE: 1. No acute fracture.
--- NOTE | ~2024-12-01 | XR_ITS ---
Examination: XR chest 1V portable Clinical History: SOB Comparison: 11/04/2024 Technique: Portable AP Findings: Loop recorder. Heart size normal. Mildly increased interstitial markings. No acute bony abnormality. IMPRESSION: 1. Suspect mild interstitial pulmonary edema and/or pneumonitis. Reviewed, dictated and finalized at location R.
--- NOTE | 2024-12-01 19:14 | ECG_ITS ---
Test Date: 2024-12-01 19:19:45 Measurements Intervals [place] Rate: 87 P: 54 [place]: 172 QRS: 51 QRSD: 166 T: 11 QT: 422 QTc: 510 Interpretive Statements SINUS RHYTHM RIGHT BUNDLE BRANCH BLOCK CONSIDER INFERIOR INFARCT, AGE INDETERMINATE BASELINE ARTIFACT- I, III, AVR, AVL, AVF ABNORMAL ECG Compared to ECG 11/04/2024 14:29:01 NO SIGNIFICANT CHANGE Electronically Signed On 12-01-2024 19:32:47 CDT by Mathew Landon D.O.
[2024-12-01 19:46] LABS: Hematocrit 39.8 % (42.0-52.0); Hemoglobin 13.7 g/dL (14.0-18.0); Immature Granulocyte Percent A 0.3 % (0-0.5); Immature Platelet Fraction Pct 5.4 % (0.9-11.2); Lymphocytes Absolute Auto 1.14 K/mm3 (0.9-3.2); Mean Corpuscular HGB Conc 34.4 g/dl (32-36); Mean Corpuscular Hemoglobin 30.4 pg (26-34); Mean Corpuscular Volume 88.4 fl (80-100); Nucleated Red Blood Cells Absolute Auto 0.000 K/mm3 (0.0-0.012); Nucleated Red Blood Cells Perc 0.0 % (0.0-0.2); Platelet Count Result 124 k/mm3 (150-375); Red Blood Count 4.50 M/mm3 (4.6-6.20); White Blood Count 7.2 K/mm3 (4.5-10.0)
[2024-12-01 19:56] LABS: Alanine Aminotransferase 36 U/L (6-50); Albumin Level 4.6 g/dL (3.5-5.1); Alkaline Phosphatase 65 U/L (38-126); Anion Gap 15 mmol/L (4-12); Aspartate Amino Transferase 30 U/L (17-59); Bilirubin,Total 1.1 mg/dL (0.2-1.3); Blood Urea Nitrogen 22 mg/dL (9-20); Calcium 9.4 mg/dL (8.4-10.2); Carbon Dioxide 19 mmol/L (22-30); Chloride 103 mmol/L (98-107); Estimated CRCL calculation 63 ml/min; Estimated Glomerular Filt Rate 47; Glucose 151 mg/dL (65-110); Potassium 3.7 mmol/L (3.4-5.0); Sodium 137 mmol/L (137-145); Total Protein 8.0 g/dL (6.3-8.2)
--- NOTE | 2024-12-01 21:33 | ED.GENADULT ---
HPI - General Adult General Chief complaint: Unspecified Stated complaint: headache, sob, fall Time Seen by Provider: 12/01/24 21:00 Source: patient Limitations: no limitations History of Present Illness HPI narrative: Patient presents with report of a headache that seems to radiate down his neck/back between shoulder blades. Also pain in his arms, left more than right. History of bilateral neuropathy. Also SOB; History of CHF for which he is on Lasix. Has had a dry cough. Chest pressure. Symptoms not preceded by head position changes. Body position changes do sometimes worseng symptoms. Quit [employer] in January. He reports having an episode of losing consciousness but states he was seated at the time. He has a history of 2 strokes in 2012. On Plavix and Xarelto as anticoagulation; Afib. No photophobia or phonophobia. No hearing problems. DId not take any meds at home. Reports multiple falls today due to dizziness. Related Data Home Medications ?Medication ?Instructions ?Recorded ?Confirmed ?Last Taken ?Type amlodipine 10 mg tablet 10 mg PO DAILY 01/24/19 11/24/24 10/16/24 History bupropion HCl 150 mg tablet,12 hr 150 mg PO Q12H 01/24/19 11/24/24 10/16/24 History sustained-release (Wellbutrin SR) metformin 1,000 mg tablet 1,000 mg PO BID 01/24/19 11/24/24 10/16/24 History isosorbide mononitrate 60 mg 120 mg PO DAILY 01/09/20 11/24/24 10/16/24 History tablet,extended release 24 hr alprazolam 0.25 mg tablet 0.25 mg PO HS 08/21/21 11/24/24 10/15/24 History atorvastatin 80 mg tablet 80 mg PO DAILY 06/13/24 11/24/24 10/16/24 History dulaglutide 3 mg/0.5 mL 3 mg subcut WEEKLY 06/13/24 11/24/24 10/11/24 History subcutaneous pen injector (Trulicity) furosemide 40 mg tablet 40 mg PO DAILY 06/13/24 11/24/24 10/09/24 History budesonide 160 mcg-glycopyr 9 2 inh inhalation BID 06/28/24 11/24/24 08/16/24 History mcg-formot 4.8 mcg/actuation HFA inhaler (Breztri Aerosphere) rivaroxaban 2.5 mg tablet (Xarelto) 2.5 mg PO Q12H 07/12/24 11/24/24 10/16/24 History doxazosin 2 mg tablet 2 mg PO HS 08/19/24 11/24/24 10/15/24 History losartan 100 mg tablet 100 mg PO DAILY 09/10/24 11/24/24 10/16/24 History Allergies Allergy/AdvReac Type Severity Reaction Status Date / Time No Known Allergies Allergy Unknown Verified 12/01/24 19:19 [facility] Past Medical History Medical History (Updated 12/03/24 @ 00:00 by Background Daherminio) BMI greater than 40 Fatty liver Thrombocytopenia Hypertension Coronary artery disease Stent to the distal circumflex and Left anterior descending in 2014. Left anterior descending stent in 04/2015. COVID Transient ischemic attack multiple Diabetic peripheral neuropathy Peripheral vascular disease Deep venous thrombosis Gastric ulcer Obstructive sleep apnea on CPAP Hyperlipidemia Type 2 diabetes mellitus not on insulin Gastroesophageal reflux disease Chronic obstructive pulmonary disease Cerebrovascular accident x2; Mild left-sided weakness. Congestive heart failure Chronic anticoagulation Hydronephrosis Psoriasis Depression Fracture of fifth toe, right, closed Kidney stones Pneumonia Myocardial infarction Seasonal allergies Surgical History Surgical History History of coronary artery stent placement x3 History of tonsillectomy History of cholecystectomy History of lithotripsy History of rectal polypectomy History of cardiac catheterization multiple Family History Family History Mother Diabetes mellitus Arthritis Kidney stones Coronary artery disease Father Acute myocardial infarction <65yo Heart disease Kidney stones Hypertension Coronary artery disease Sibling Coronary artery disease Heart disease Hx of CABG Social History Social History Social History: Surrogate decision maker: Renacornell Dodd, friend. Code status: Full code. Reports having a grandchild (who plays baseball) though previously reported that he doesn't have children Smoking packs per day: 1 Smoking cigarettes per day: 20.0 Years smoked: 47 Smoking pack-years: 47.00 Smoking status: Former smoker Tobacco type: cigarettes Second hand tobacco smoke exposure: Yes Smoking end date: 02/22/24 Alcohol intake: former Drinks per week: 0 Substance use: never Substance use type: does not use Last use: 10/01/2023 Do You Feel Safe in your Home?: Yes Lack of Transportation: No Lack of Food: Never True Current Housing: I Have Housing Concerned About Future Housing: No Difficulty Paying Gas/Electric Bills: No Difficulty Paying for Meds: No Currently Unemployed: No Education: High School Diploma/GED Difficulty w/ Childcare or Family Care: No Living arrangements: with roommate(s) Additional living arrangements comments: The patient lives in [place] with a roommate. He has no children. Occupation/Education: other Additional occupation/education comments: Disabled. Spiritual care concerns: No Exam Narrative: GENERAL: Well-appearing, well-nourished, and in no acute distress. HEAD: Normocephalic, atraumatic. EYES: Non injected, non icteric ENT: Nares clear, no rhinorrhea or epistaxis. Gross auditory acuity intact. NECK: Supple. No meningismus. CHEST: Speaking in full sentences. No respiratory distress. HEART: Regular rate and rhythm. . ABDOMEN: Soft, nondistended. No rigidity or guarding. Not peritoneal EXTREMITIES: Normal range of motion. No lower extremity edema. SKIN: Warm, dry, no rash. NEURO: No focal deficits. Alert and oriented. Answering questions. Following commands. Normal speech without aphasia or dysarthria. PSYCH: Normal mood and affect. Course Vital Signs Vital signs: Vital Signs Temperature 97.4 F L 12/01/24 19:16 Pulse Rate 87 12/01/24 19:16 Respiratory Rate 22 H 12/01/24 19:16 Blood Pressure 112/68 12/01/24 19:16 Pulse Oximetry 98 12/01/24 19:16 Oxygen Delivery Room Air 12/01/24 19:16 Temperature 97.8 F 12/01/24 19:27 Pulse Rate 70 12/02/24 00:30 Respiratory Rate 22 H 12/02/24 00:30 Blood Pressure 124/71 12/02/24 00:17 Pulse Oximetry 96 12/02/24 00:30 Oxygen Delivery Room Air 12/01/24 19:16 Medical Decision Making MDM Narrative Medical decision making narrative: Patient presents with report of multiple falls, headache radiating down his neck/back, dizziness and shortness of breath. In the emergency department he is afebrile vital signs notable for very mild tachypnea, resolved on reassessment without interval intervention. He has a normocytic anemia which is stable from previous as well as a mild thrombocytopenia which has also been chronic/stable. He has a mild hyperglycemia with an anion gap and a CO2 that is technically low but not frankly acidotic acid is greater than 15. He does appear to have an BURAK. Given the equivocal chest x-ray interpretation by the radiologist as well as his stated history of CHF, judicious 500cc fluids ordered. Viral swab negative. D-dimer is within normal limits. Urinalysis is without signs of infection but has glucosuria and only mild proteinuria; No ketonuria. After obtaining the patient's history and performing a physical exam, the headache is most likely due to benign etiology. The extensive neurological examination is non-focal, there are no high-risk features on history, vital signs are stable, and the patient is non-toxic appearing. The Ddx for the patient's headache is tension headache, migraine, or other headache of non-emergent etiology. Unlikely SAH: headache is non-thunderclap. Headache is non-maximal at onset Considered subdural/epidural hematoma: no history of trauma, but on anticoagulation Unlikely meningitis: afebrile, mild photophobia Unlikely temporal arteritis: does not report tenderness in temporal area Unlikely acute angle glaucoma: no report of eye pain Unlikely carbon monoxide poisoning: no report of otherswith similar symptoms The patient's headache was treated symptomatically with acetaminophen initially. Will proceed with CT imaging though. For his dizziness, DIFFERENTIAL DIAGNOSIS: Central causes: infection ( encephalitis, meningitis, cerebritis); vertebrobasilar arterial insufficiency, subclavian steal syndrome, cerebellar or brainstem hemorrhage or infarction, vertebrobasilar migraine, trauma ( temporal bone fracture, post concussive syndrome); tumor (brainstem or cerebellum); MS; temporal lobe epilepsy Peripheral causes: Foreign body, cerumen impaction, acute otitis media, labyrinthitis, benign paroxysmal positional vertigo, Meniere's disease, vestibular neuronitis, perilymphatic fistula, trauma, motion sickness, acoustic neuroma, ototoxic medications Meclizine given as first line agent. Orthostatic vital signs are reviewed and acceptable. Patient still has a headache at 10:30 p.m.. We are still awaiting his CT; although not currently dizzy, will give Valium ordered as second line agent at this time. After negative acute CT, headache cocktail ordered given he tells RN still having a headache: IV fluids, ketorolac (one time dose, aware patient is on anticoagulation so will not prescribe further), benadryl, compazine He tells the RN he is feeling better and would like to go, pain now a 5/10 and this is acceptable to him. One time dose of steroid ordered to reduce recurrence/bounceback headache. Discharged and advised to follow up with their PCP. Provided Rx for APAP and Tessalon perles. Vital Signs Vital Signs: Vital Signs Temperature 97.4 F L 12/01/24 19:16 Pulse Rate 87 12/01/24 19:16 Respiratory Rate 22 H 12/01/24 19:16 Blood Pressure 112/68 12/01/24 19:16 Pulse Oximetry 98 12/01/24 19:16 Oxygen Delivery Room Air 12/01/24 19:16 Temperature 97.8 F 12/01/24 19:27 Pulse Rate 70 12/02/24 00:30 Respiratory Rate 22 H 12/02/24 00:30 Blood Pressure 124/71 12/02/24 00:17 Pulse Oximetry 96 12/02/24 00:30 Oxygen Delivery Room Air 12/01/24 19:16 Lab Data 12/01/24 19:37 12/01/24 19:37 Labs: Lab Results 12/01/24 12/01/24 12/01/24 Range/Units 19:37 21:07 21:43 WBC 7.2 (4.5-10.0) K/mm3 RBC 4.50 L (4.6-6.20) M/mm3 Hgb 13.7 L (14.0-18.0) g/dL Hct 39.8 L (42.0-52.0) % MCV 88.4 (80-100) fl MCH 30.4 (26-34) pg MCHC 34.4 (32-36) g/dl RDW 13.8 (11.5-14.5) % Plt Count 124 L (150-375) k/mm3 MPV 11.0 H (7.4-10.4) fl Immature Gran % (Auto) 0.3 (0-0.5) % Neut % (Auto) 72.3 (45.5-73.1) % Lymph % (Auto) 15.7 L (18.3-44.2) % Barnes % (Auto) 10.1 H (2.6-8.5) % Eos % (Auto) 1.5 (0-4.4) % Baso % (Auto) 0.1 L (0.2-1.2) % Lymph # (Auto) 1.14 (0.9-3.2) K/mm3 Barnes # (Auto) 0.7 H (0.1-0.6) K/mm3 Eos # (Auto) 0.1 (0-0.3) K/mm3 Baso # (Auto) 0.0 (0.0-0.1) K/mm3 Abs Immat Gran (auto) 0.02 (0.00-0.031) K/mm3 Absolute Neuts (auto) 5.2 (1.3-6.7) K/mm3 Absolute Nucleated RBC 0.000 (0.0-0.012) K/mm3 Nucleated RBC % 0.0 (0.0-0.2) % % Immature Plt Fraction 5.4 (0.9-11.2) % D-Dimer < 0.27 (<0.48) ug/mL Sodium 137 (137-145) mmol/L Potassium 3.7 (3.4-5.0) mmol/L Chloride 103 (98-107) mmol/L Carbon Dioxide 19 L (22-30) mmol/L Anion Gap 15 H (4-12) mmol/L BUN 22 H (9-20) mg/dL Creatinine 1.49 H (0.7-1.3) mg/dL Estim Creat Clear Calc 63 ml/min Estimated GFR 47 L (59 - ) Glucose 151 H (65-110) mg/dL Calcium 9.4 (8.4-10.2) mg/dL Total Bilirubin 1.1 (0.2-1.3) mg/dL AST 30 (17-59) U/L ALT 36 (6-50) U/L Alkaline Phosphatase 65 (38-126) U/L Troponin I < 0.012 (0.000-0.034) ng/mL NT-Pro-B Natriuret Pep 31 (19.9-100) pg/mL Total Protein 8.0 (6.3-8.2) g/dL Albumin 4.6 (3.5-5.1) g/dL Beta-Hydroxybutyrate/Acetoacetate 0.44 H (0.02-0.27) mmol/L Urine Color Yellow (Yellow) Urine Appearance Clear (Clear) Urine pH 5.0 (5.0-9.0) Ur Specific Convoy 1.020 (1.001-1.035) Urine Protein 1+ H (Negative) mg/dL Urine Glucose (UA) 3+ H (Negative) mg/dL Urine Ketones Negative (Negative) mg/dL Ur Blood (Man) Negative (Negative) Urine Nitrate Negative (Negative) Urine Bilirubin Negative (Negative) Urine Urobilinogen 0.2 (<2.0) mg/dL Leukocyte Esterase Rfl Negative (Negative) JAVIER/UL Urine RBC 0-2 (0-2) /hpf Urine WBC 0-5 (0-3) /hpf Ur Squamous Epith Cells None seen (Few) /hpf Urine Bacteria None seen /hpf Urine Casts 3-5 Influenza A (RT-PCR) Negative (Negative) Influenza B (RT-PCR) Negative (Negative) RSV (RT-PCR) Negative (Negative) SARS-CoV-2 RNA (RT-PCR) Negative (Negative) Imaging Data Radiologist's impression: CT Head Stat Rad: No acute intracranial hemorrhage. No midline shift or mass effect. The territorial davis-white matter differentiation is maintained throughout. Age-related cerebral volume loss. Periventricular and subcortical white matter hypoattenuation, consistent with chronic microangiopathy. CT C-spine without contrast: the vertebral body heights are maintained. The craniocervical junction is intact. The atlanto dens interval is maintained. The dens is intact. There is no spondylolisthesis. Multilevel cervical spondylosis and degenerative disc disease. Straightening of the cervical lordosis. Impression: No acute fracture subluxation of the cervical spine. ECG Data EKG #1: Attestation: I personally reviewed and interpreted this ECG as follows: ECG completion date: 12/01/24 ECG completion time: 19:19 Prior ECG tracings: available for review (11/04/24 showed RBBB but not the T wave inversions) Interpretation: Normal sinus rhythm at a rate of 87 beats per minute. TX interval 172. QRS 166. QT/ QTC 422/510. RBBB given QRS greater [id number]; RSR' M-shaped pattern in V1-V3; wide, slurred S wave in lateral leads (I, aVL, V5-6). Good R-wave progression across the precordial leads. T-wave inversion in V3, possibly due to lead placement however there is also T-wave inversion in V4. Discharge Plan Discharge Clinical Impression: Normocytic anemia, Thrombocytopenia, BURAK (acute kidney injury), Glucosuria, Proteinuria, Headache, Shortness of breath, Bronchitis, Dizziness, Multiple falls, Degenerative disc disease, cervical Patient Disposition: Home Condition: Stable Instructions: Antibiotic Form, Acute Kidney Injury (DC), Acute Bronchitis (ED), Anemia (ED), Fall Prevention (ED), Degenerative Disc Disease (ED), General Headache (ED), Shortness of Breath (ED) Additional Instructions: no evidence of pneumonia on your imaging. Your symptoms represents bronchitis. This is normally viral but you tested negative for covid, influenza A, influenza b, and RSV. the benzonatate/ Tessalon Perles may help. Acetaminophen/Tylenol (maximum 4000 mg per day) is safe to take for pain relief, for example headache. Follow-up with primary care provider. Return to the emergency department with any new or worsening symptoms. Patient Language: Faroese Prescriptions: New benzonatate 100 mg capsule 100 mg PO BID PRN (Reason: cough) Qty: 20 0RF acetaminophen 500 mg capsule 1,000 mg PO Q6H PRN (Reason: pain) Qty: 30 0RF No Action Breztri Aerosphere 160-9-4.8 mcg/actuation HFA aerosol inhaler 2 inh INHALATION BID losartan 100 mg tablet 100 mg PO DAILY cholestyramine (with sugar) [Questran] 4 gram powder in packet 4 g PO BID 30 Days Qty: 60 5RF Rx Instructions: administer w/meal; avoid other meds within 1hr before or 4-6hr after dose isosorbide mononitrate 60 mg tablet extended release 24 hr 120 mg PO DAILY carvedilol [Coreg] 12.5 mg Tablet 12.5 mg PO Q12HR Qty: 60 0RF nitroglycerin [Nitrostat] 0.4 mg Tablet, Sublingual 0.4 mg sublingual Q5MIN PRN (Reason: Chest Pain) Qty: 26 0RF omeprazole 40 mg capsule,delayed release(DR/EC) 40 mg PO DAILY Qty: 30 0RF tamsulosin 0.4 mg capsule 0.4 mg PO HS Qty: 30 0RF Jardiance 10 mg tablet 10 mg PO DAILY Qty: 30 0RF atorvastatin 80 mg tablet 80 mg PO DAILY Trulicity 3 mg/0.5 mL pen injector 3 mg SUBCUT WEEKLY Patient Comments: TAKES ON Tuesdays furosemide 40 mg tablet 40 mg PO DAILY clopidogrel 75 mg Tablet 75 mg PO QAM Qty: 30 0RF sacubitril-valsartan [Entresto] 24-26 mg Tablet 1 tab PO Q12HR Qty: 30 0RF doxazosin 2 mg tablet 2 mg PO HS bupropion HCl [Wellbutrin SR] 150 mg tablet sustained-release 12 hr 150 mg PO Q12H amlodipine 10 mg tablet 10 mg PO DAILY Patient Comments: take off hold, pt is taking currently metformin 1,000 mg tablet 1,000 mg PO BID alprazolam 0.25 mg tablet 0.25 mg PO HS Rx Instructions: at bedtime rivaroxaban [Xarelto] 2.5 mg tablet 2.5 mg PO Q12H acetaminophen 500 mg tablet 1,000 mg PO TID PRN (Reason: matt) 7 Days Qty: 42 0RF ranolazine 500 mg tablet extended release 12 hr 500 mg PO Q12H 30 Days Qty: 60 0RF Follow-up/Referrals: Irving,JOVITA Junior [Primary Care Provider] Stand Alone Forms: Work/School Release IP Time of Disposition: 01:32
[2024-12-01] MEDS: ACETAMINOPHEN 500 MG TABLET 1000 MG PO (21:38)
[2024-12-01] MEDS: SODIUM CHLORIDE 0.9% IV 500 ML 999 ML IV CONT (21:41)
--- OUTSIDE RECORDS SUMMARY | 2024-12-01 21:45 | XMS_ITS | Encounter Summary ---
Author Organization [facility] Healthcare Address [address] [place] [address] Care Team Providers Care Teacher Of Gifted Students Name Role Phone Sandi Alfaro Primary Care Provider + Encounter Details Date Type Department Care Team (Late st Contact Info) Description 07/20/2024 Orders Only [facility] Health Information Management [address] [place] [id number] Scanning, Provider Social History Tobacco Use Types Packs/Day Years Used Date Smoking Tobacco: Some Days Cigarettes 0.3 15 Smokeless Tobacco: Never Alcohol Use Standard Drinks/Week Comments Yes 0 (1 standard drink = 0.6 oz pur e alcohol) Sex and Gender Information Value Date Recorded Sex Assigned at Not on file Legal Sex Male 3:15 AM PULMONARY PHYSICAL THERAPIST Gender Identity Male 09/03/2018 6:22 AM CDT [...] on filedocumented in this encounter Care Teams Teacher Of Gifted Students Relationship Specialty Start Date End Date Sandi Alfaro PA PCP - General Nurse Practitioner 08/21/17 documented as of this encounter
--- OUTSIDE RECORDS SUMMARY | 2024-12-01 21:45 | XMS_ITS | Encounter Summary ---
Author Organization [facility] Address [address] [place] [id number] Care Team Providers Care Dandy Tender Name Role Phone Sandi Alfaro Primary Care Provider [phone] Sandi Alfaro Unavailable [phone] Cheryl Huston RN Unavailable Unavailable Encounter Details Date Type Department Care Team (Late st Contact Info) Description 05/13/2021 Letao Message Enc [facility] Medical Group Multispecialty Care - [facility] [address] [facility] [place] [id number] Eliza, [facility] Provider CPAP Social History Tobacco Use Types Packs/Day Years Used Date Smoking Tobacco: Every Day Cigarettes 0.3 40 Smokeless Tobacco: Never Comments:want to quit but gary s alot of stress right [id number] smoking about 3-4 cigaretts a day Alcohol Use Standard Drinks/Week Comments Yes 0 (1 standard drink = 0.6 oz pur e alcohol) very rarely 6 beers/year PHQ-2 Answer Date Recorded PHQ-2 Score - If the patient scores above 3, please move on to questions 3-9 4 01/23/2021 Sex and Gender Information Value Date Recorded Sex Assigned at Male 03/31/2024 8:58 AM STOCK HOLDER Legal Sex Male 8:01 PM CDT Gender [...] Total Score: 7 01/24/20 21 1:37 PM STOCK HOLDER documented as of this encounter Care Teams Dandy Tender Relationship Specialty Start Date End Date Sandi Alfaro APNP Family & Internal Medicine [address] [id number] PCP - General [employer] COMMERCIAL MORTGAGE BROKER 04/28/17 Sandi Alfaro APNP [address] [place] [id number] PCP - Med Group - [facility] Attributed Provider 03/02/15 03/01/22 Cheryl Huston operations supervisor chemical cleaning (Ambulatory) REGISTERED NURSE 03/23/19 documented as of this encounter
--- OUTSIDE RECORDS SUMMARY | 2024-12-01 21:45 | XMS_ITS | Encounter Summary ---
Author Organization [facility] Healthcare Address [address] [place] [address] Care Team Providers Care Yarn Sizer Name Role Phone Sandi Alfaro Primary Care Provider + Encounter Details Date Type Department Care Team (Late st Contact Info) Description 02/04/2023 Orders Only [facility] Health Information Management [address] [place] [id number] Scanning, Provider Social History Tobacco Use Types Packs/Day Years Used Date Smoking Tobacco: Every Day Smokeless Tobacco: Never Alcohol Use Standard Drinks/Week Comments Yes 0 (1 standard drink = 0.6 oz pur e alcohol) Sex and Gender Information Value Date Recorded Sex Assigned at Not on file Legal Sex Male 3:15 AM NETWORK STRATEGIST Gender Identity Male 09/03/2018 6:22 AM CDT Sexual Orientation Straight 09/03/2018 6: 22 AM CDT documented as of this encounter Plan of Treatment Not on file documented as of this encounter Procedures Procedure Name Priority Date/Time Associated Diagnosis Comments SCAN - RADIOLOGY/IMAGING 02/04/2023 documented in this encounter Results * SCAN - RADIOLOGY/IMAGING (02/04/2023) Anatomical Region Laterality Modality Other us Provider Scanning Final Result documented in this encounter Visit Diagnoses Not on filedocumented in this encounter Care Teams Yarn Sizer Relationship Specialty Start Date End Date Sandi Alfaro PA PCP - General Nurse Practitioner 08/21/17 documented as of this encounter
--- OUTSIDE RECORDS SUMMARY | 2024-12-01 21:46 | XMS_ITS | Encounter Summary ---
Author Organization [facility] Address [address] [place] [id number] Care Team Providers Care Publication Manager Name Role Phone Sandi Alfaro Primary Care Provider [phone] Sandi Alfaro Unavailable [phone] Cheryl Huston RN Unavailable Unavailable Encounter Details Date Type Department Care Team (Latest Contact Info) Description 10/26/2017 Abstract [facility] Medical Group Md, Shay Hughes MD [...] Sex Assigned at Male 03/31/2024 8:58 AM HAND PAINT MIXER Legal Sex Male 8:01 PM CDT Gender [...] Rule Out 05/03/2020 05/03/2020 05/03/2020 3:25 PM HAND PAINT MIXER COVID-19 Rule Out 05/12/2023 05/12/2023 05/13/2023 12:01 AM CDT Influenza - Seasonal 05/14/2023 05/14/2023 024 12:32 AM CDT Respiratory Rule Out 09/19/2024 09/19/202409/19/2 025 5:40 PM CDT documented as of this encounter Care Teams Publication Manager Relationship Specialty Start Date End Date Sandi Alfaro APNP Family & Internal Medicine [address] [id number] PCP - General [employer] JUNIOR HIGH MATH TEACHER 04/28/17 Sandi Alfaro APNP [address] [place] [id number] PCP - Med Group - MSSP Attributed Provider 03/02/15 03/01/22 Cheryl Huston, cash register mechanic (Ambulatory) REGISTERED NURSE 03/23/19 documented as of this encounter
--- OUTSIDE RECORDS SUMMARY | 2024-12-01 21:46 | XMS_ITS | Clinical Summary ---
Author Organization [facility] Address [address] [place] [address] Care Team Providers Care Sustainability Project Manager Name Role Phone Sandi Alfaro Primary Care Provider [phone] Cheryl Huston RN Unavailable Unavailable Allergies No [...] use of insulin ([facility]) USE 1 STRIP BY OTHER ROUTE 2 (TWO) TIMES A DAY. 100 strip Active tamsulosin (FLOMAX) 0.4 MG Cap Take 1 capsule (0.4 mg total) by mouth nightly at bedtime. Active vitamin B-12 (CYANOCOBALAMIN) 1000 MCG tablet Take 1 tablet (1,000 mcg total) by mouth daily. 30 tablet Active traMADol (ULTRAM) 50 MG tabletIndications :Acute [...] needed for pain for 3 days Active meclizine (ANTIVERT) 25 MG tablet TAKE 1 TABLET BY MOUTH THREE TIMES A DAY NEEDED FOR DIZZINES Active losartan (COZAAR) 100 MG tabletIndications :Hypertensive heart disease with congestive heart failure, unspecified heart failure type ([facility]),Primary hypertension TAKE 1 TABLET BY MOUTH EVERY DAY 90 tablet 1 025 Active albuterol sulfate HFA 108 (90 Base) MCG/ACT inhaler INHALE 2 PUFFS EVERY 4 - 6 HOURS NEEDED FOR SHORTNESS OF BREATH OR WHEEZING FOR 30 DAYS Active naloxone (NARCAN) 4 MG/0.1ML nasal sprayIndications: Mixed anxiety depressive disorder 1 spray by Nasal route as needed for Opioid reversal. may repeat every 2 to 3 minutes in alternating nostrils until medical assistance becomes available 1 each 2025 Active Additional Information Patient not taking.Reported on 11/28/2024 carvedilol (COREG) 12.5 MG tablet Take 1 tablet (12.5 mg total) by mouth every 12 (twelve) hours. Active clopidogrel (PLAVIX) 75 MG tablet Take 1 tablet (75 mg total) by mouth every morning. 025 Active furosemide (LASIX) 40 MG tablet Take 1 tablet (40 mg total) by mouth daily. Active budesonide-glycop yrrolate-formoter ol (BREZTRI AEROSPHERE) 160-9-4.8 MCG/ACT inhalerIndication s:Pulmonary emphysema, unspecified emphysema type ([facility]) Inhale 2 puffs into the lungs 2 (two) times daily. 10.7 g 5 025 Active doxazosin (CARDURA) 2 MG tablet Take 1 tablet (2 mg total) by mouth nightly at bedtime. 025 Active JARDIANCE 10 MG tabletIndications :Type 2 diabetes mellitus without complication, without long-term current use of insulin ([facility]) TAKE 1 TABLET BY MOUTH [...] MG tabletIndications :Diabetic foot ([facility]) TAKE 1 TABLET BY MOUTH TWICE A DAY 180 tablet 025 Active dulaglutide (TRULICITY) 3 MG/0.5ML injectionIndicati ons:Dyslipidemia associated with type 2 diabetes mellitus ([facility]) INJECT 3 MG INTO THE SKIN ONCE A WEEK 6 mL 2 025 Active ranolazine ER (RANEXA) 500 MG 12 hr tablet take 1 tablet by mouth every 12 hours for 30 days 025 Active cholestyramine (QUESTRAN) 4 G packet PLEASE SEE ATTACHED FOR DETAILED DIRECTIONS Active pantoprazole EC (PROTONIX) 40 MG tabletIndications :Gastroesophageal reflux disease, unspecified whether esophagitis present Take 1 tablet (40 mg total) by mouth daily. 30 tablet 5 025 Active ALPRAZolam (XANAX) 0.25 MG tabletIndications :Mixed anxiety depressive disorder,Primary insomnia Take 1 tablet (0.25 mg total) by mouth nightly at bedtime. TAKE 1 TABLET (0.25 MG TOTAL) BY MOUTH AT NIGHT FOR SLEEP Strength: 0.25 mg 30 tablet Active ondansetron (ZOFRAN-ODT) 4 MG disintegrating tabletIndications :Vertigo Take 1 tablet (4 mg total) by mouth every 8 (eight) hours as needed for Nausea. 30 tablet Active dulaglutide (TRULICITY) 3 MG/0.5ML injectionIndicati ons:Dyslipidemia associated with type 2 diabetes mellitus ([facility]) Inject 3 mg into the skin once a week. 6 mL 024 2024 Discontinued omeprazole (PRILOSEC) 40 MG capsuleIndication s:Gastroesophagea l reflux disease without esophagitis TAKE 1 CAPSULE (40 MG TOTAL) BY MOUTH DAILY. 90 capsule 1 025 2024 Discontinued ondansetron (ZOFRAN-ODT) 4 MG disintegrating tabletIndications :Vertigo Take 1 tablet (4 mg total) by mouth every 8 (eight) hours as needed for Nausea. 30 tablet 025 2024 Discontinued(R eorder) ALPRAZolam (XANAX) 0.25 MG tabletIndications :Mixed anxiety depressive disorder,Primary insomnia Take 1 tablet (0.25 mg total) by mouth nightly at bedtime. TAKE 1 TABLET (0.25 MG TOTAL) BY MOUTH AT NIGHT FOR SLEEP Strength: 0.25 mg 30 tablet 025 2024 Discontinued(R eorder) ALPRAZolam (XANAX) 0.25 MG tabletIndications :Mixed anxiety depressive disorder,Primary insomnia Take 1 tablet (0.25 mg total) by mouth nightly at bedtime. TAKE 1 TABLET (0.25 MG TOTAL) BY MOUTH AT NIGHT FOR SLEEP Strength: 0.25 mg 30 tablet 025 2024 Discontinued(R eorder) omeprazole (PRILOSEC) 40 MG capsuleIndication s:Gastroesophagea l reflux disease without esophagitis TAKE 1 CAPSULE (40 MG TOTAL) BY MOUTH DAILY. 90 capsule 1 025 2024 Discontinued(F ormulary change) Active Problems Problem Noted Date Diagnosed Date Thrombocytopenia 03/31/2024 Polyneuropathy associated with underlying diseas e ([facility]) 12/16/2023 Morbid (severe) obesity due to excess calories 0 05/15/2022 Body mass index (BMI) 40.0-44.9, adult Acute hyperglycemia 05/17/2021 Anxiety 05/17/2021 Arthritis 05/17/2021 Atypical syncope 05/17/2021 Calculus of left ureter 05/17/2021 Eczema 05/17/2021 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/17/2021 snf current use of anticoagulant therapy 0 05/17/2021 Peripheral neuropathy 05/17/2021 Rectal polyp 05/17/2021 Swelling of left lower extremity 05/17/2021 Tear of medial meniscus of knee 05/17/2021 Tobacco abuse 05/17/2021 Pain due to ureteral stent 05/17/2021 Cigarette nicotine dependence without complicati on 03/14/2019 Seasonal allergic rhinitis due to pollen 019 Chronic heart failure with p reserved ejection fraction ([facility]) 11/12/2018 Arthralgia of left hand 11/02/2018 Enchondroma of bone of hand, left 11/02/2018 Carpal tunnel syndrome on left 08/26/2018 Cryptogenic stroke ([facility]) 07/06/2018 Skin lesion of right arm 06/28/2018 Weakness 05/26/2018 Status post placement of implantable loop record er 10/13/2017 Overview (01/13/2018): Overview: [employer] Reve[employer] Loop Recorder. Dx; Cryptogenic Stroke. DOI 10/12/[address] Willoughby. [employer] remote monitoring. TIA (transient ischemic attack) 10/06/2017 Mild emphysema ([facility]) 08/28/2017 Hepatic steatosis 08/28/2017 Memory loss 05/18/2017 Chest pain 04/30/2017 S/P coronary artery stent placement 12/17/2016 Hemorrhoids 10/03/2016 Hearing loss 08/01/2016 Decreased hearing 07/17/2016 Chronic nausea 03/27/2016 Diabetic foot ([facility]) 03/10/2016 Abdominal wall bulge 03/10/2016 CHF (congestive heart failure) ([facility]) 01/14/2016 Peripheral edema 12/19/2015 Tinnitus 11/08/2015 History of kidney stones 10/03/2015 Insomnia 05/07/2015 Chronic cough 03/20/2015 Hypertensive heart disease w ith congestive heart failure ([facility]) 02/20/2015 Overview (01/13/2018): Overview: Hypertensive heart disease with diastolic heart failure Coronary artery disease of n ative artery of [place] heart with stable angina pectoris 02/20/2015 Overview (01/13/2018): Overview: Coronary artery disease involving [place] coronary artery of [place] heart with other form of angina pectoris CVA, old, hemiparesis ([facility]) 02/21/20 15 Overview (01/13/2018): Overview: CVA, old, hemiparesis Dyslipidemia associated with type 2 diabetes mellitus ([facility]) 02/20/2015 Overview (01/13/2018): Overview: DM (diabetes mellitus) Overview: DM type 2 with diabetic dyslipidemia Mixed diabetic hyperlipidemi a associated with type 2 diabetes mellitus ([facility]) 02/20/2015 Overview (05/17/2021): DM type 2 with [...] benign Cerebrovascular accident (CVA) ([facility]) 08/23/2013 Hyperlipidemia 08/23/2013 Resolved Problems Problem Noted Date Diagnosed Date Resolved Date Left nephrolithiasis 10/07/2017 018 Encounter for screening for lung cancer 04/09/2017 06/28/2018 BMI 45.0-49.9, adult 10/03/2016 023 Morbid obesity 08/13/2016 05/15/2022 Encounter for preventive health examination 08/23/2013 06/28/2018 Encounters Date Type Department Care Team Description 11/29/2024 Results Follow-Up [facility] Family & Internal Medicine [address] [phone] Sandi Alfaro, APNP COMPREHENSIVE METABOLIC PANEL, CBC W/DIFF AUTOMATED, XR ABD FLAT+UPRIGHT 11/28/2024 9:20 AM CDT Office Visit [facility] Family & Internal Medicine [address] [phone] Sandi Alfaro, APNP Abdominal Pain 11/28/2024 Telephone [facility] Family & Internal [address] [phone] Sandi Alfaro, APNP Medication Request 11/28/2024 Travel 11/07/2024 Scan [facility] Scanned, [facility] 11/04/2024 Scan [facility] Scanned, [facility] 10/17/2024 Scan [facility] Scanned, [facility] 10/16/2024 Scan [facility] Scanned, [facility] Image (SCAN); Lab (SCAN) 09/28/2024 Scan [facility] Scanned, [facility] Lab (SCAN) 09/19/2024 3:11 PM CDT - 09/19/2024 6:56 PM CDT Emergency [facility] Emergency Room [address] [place] [id number] Aiden Mendiola MD Medical Problem (X 3 days ) Discharge Disposition: Home or Self Care (Routine Discharge) 09/19/2024 Travel 09/19/2024 Telephone [facility] Family & Internal Medicine [address] [phone] Sandi Alfaro APNP Information 09/10/2024 Scan [facility] Scanned, [facility] CT (SCAN); Lab (SCAN) from Last 3 Months [...] pur e alcohol) very rarely 6 beers/year [facility] Utilities Answer Date Recorded In the past 12 months has th e electric, gas, oil, or water [employer] threatened to shut off services in your [...] often do you attend chur ch or christianity services? 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 Male 8:01 PM CDT Gender Identity Not on file Sexual Orientation Not on file Last Filed Vital Signs Vital Sign Reading Time Taken Comments Blood Pressure 120/68 11/28/2024 9:21 AM CDT Pulse 77 11/28/2024 9:21 AM CDT Temperature 36.1 C (97 F) 11/28/2024 9:21 AM CDT Respiratory Rate 18 11/28/2024 9:21 AM CDT Oxygen Saturation 98% 11/28/2024 9:21 AM CDT Inhaled Oxygen Concentration - - Weight 136 kg (299 lb 14.4 oz) 11/28/2024 9:21 A M CDT Height 182.9 cm (6') 11/28/2024 9:21 AM CDT Body Mass Index 40.67 11/28/2024 9:21 AM CDT Plan of Treatment Health Maintenance Due Date Last Done Comments Zoster Vaccines (1 of 2) 2009 RSV Immunization or 60+ Years (1 - Risk 60-74 years 1-dose series) 2019 ASCVD LDL 05/12/2024 05/13/2023, 06/01, 08/24/2017, Additional history exists Lipid Panel 05/12/2024 05/13/2023, 05/0 04/2022, 06/28/2021, Additional history exists Hemoglobin A1C 08/05/2024 02/05/2024, 04/30, 12/23/2022, Additional history exists COVID-19 Vaccine ( season) 2024 12/31/2021, 12/31/2020, 05/11/2020, Additional history exists Influenza Adult (#1) 2024 12/16/2023, 01/29/2023, 12/23/2022, Additional history exists ASCVD Statin 02/04/2025 Postponed from 1960 (Patient [...] Vaccine: 50+ Years Completed 06/28/2021 PHQ-2 (Physician [place]) Completed 03/31/2024 Meningococcal B Vaccine Aged Out [...] Diagnosis Comments COLLECTION VENOUS BLOOD VENIPUNCTURE Routine 11/28/2024 1:17 PM CDT Gastroesophageal reflux disease, unspecified whether esophagitis present Abdominal distention Nausea Diarrhea, unspecified type CBC W/DIFF AUTOMATED Routine 11/28/2024 1:17 PM CDT Gastroesophageal reflux disease, unspecified whether esophagitis present Abdominal distention Nausea Diarrhea, unspecified type COMPREHENSIVE METABOLIC PANEL Routine 11/28/2024 1:17 PM CDT Abdominal distention Nausea Diarrhea, unspecified type XR ABD FLAT+UPRIGHT Routine 11/28/2024 10:19 AM CDT Abdominal distention ELECTROCARDIOGRAM (NON MIDMARK ACQUIRED) Routine 11/28/2024 9:53 AM CDT Chest pain, unspecified type Procedure Note - 11/28/2024 9:53 AM CDTThis note is in progress. 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1960 Requested By: AJ CLEMENS Order Number: [id number] Reading MD: AJ CLEMENS Measurements Intervals [place] Rate: 76 P: 71 CT: 181 QRS: 12 QRSD: 161 T: 25 QT: 419 QTc: 473 Interpretive Statements SINUS RHYTHM RIGHT BUNDLE BRANCH BLOCK OUTSIDE LAB (SCAN ORDER) 10/16/2024 OUTSIDE PT/INR (SCAN ORDER) 10/16/2024 IMAGE GENERIC 10/16/2024 OUTSIDE LAB (SCAN ORDER) 09/28/2024 OUTSIDE LAB [...] ORDER) 09/10/2024 OUTSIDE LAB (SCAN ORDER) 09/10/2024 DIABETIC RETINOPATHY EXAM (NEGATIVE)(SCAN ORDER) Routine 04/27/2024 [...] Relevant to Health Maintenance Results * (ABNORMAL) COMPREHENSIVE METABOLIC PANEL (11/28/2024 1:17 PM CDT) Only the most recent of2 resultswithin the time period is included. SODIUM S/P/B 140 136 - 145 MMOL/L 11/28/2024 3:14 PM CDT [facility] POTASSIUM S/P/B 4.2 3.5 - 5.1 MMOL/L 11/28/2024 3:14 PM CDT [facility] CHLORIDE S/P/B 103 98 - 107 MMOL/L 11/28/2024 3:14 PM CDT [facility] CO2 25.9 21 - 32 MMOL/L 11/28/2024 3:14 PM CDT [facility] GLUCOSE 134(H) 70 - 99 MG/DL 11/28/2024 3:14 PM CDT [facility] BUN 22(H) 7 - 18 MG/DL 11/28/2024 3:14 PM CDT [facility] CREATININE S/P/B 1.37(H) 0.70 - 1.30 MG/DL 11/28/2024 3:14 PM CDT [facility] CALCIUM S/P/B 9.4 8.4 - 10.5 MG/DL 11/28/2024 3:14 PM CDT [facility] BILIRUBIN TOTAL S/P/B 0.7 0.2 - 1.0 MG/DL 11/28/2024 3:14 PM CDT [facility] ALKALINE PHOSPHATASE S/P/B 68 45 - 115 U/L 11/28/2024 3:14 PM CDT [facility] AST 21 15 - 37 U/L 11/28/2024 3:14 PM CDT [facility] ALT 47 16 - 63 U/L 11/28/2024 3:14 PM CDT [facility] TOTAL PROTEIN S/P/B 7.2 6.4 - 8.2 G/DL 11/28/2024 3:14 PM CDT [facility] ALBUMIN S/P/B 3.8 3.4 - 5.0 G/DL 11/28/2024 3:14 PM CDT [facility] ANION GAP 11.1 5 - 15 MMOL/L 11/28/2024 3:14 PM CDT [facility] Comment:REFERENCE RANGE NOT ESTABLISHED OSMOLALITY (CALC) 295 MOSM/KG 025 3:14 PM CDT [facility] Comment:REFERENCE RANGE NOT ESTABLISHED GFR ESTIMATE 57(L) >90 ML/MIN/1. 73 M2 11/28/2024 3:14 PM CDT [facility] GFR NOTES GFR REFERENCE S: 11/28/2024 3:14 PM CDT [facility] Comment: THE ESTIMATED GFR IS CALCULATED [...] ml/min/1.73 m2 G5,KIDNEY FAILURE: <15 ml/min/1.73 m2 11/28/2024 1:17 PM CDT us [facility]i [facility] Final Resul t [facility] [address] [place] [address], * (ABNORMAL) CBC W/DIFF AUTOMATED (11/28/2024 1:17 PM CDT) Only the most recent of2 resultswithin the time period is included. [facility] Signature WBC 6.60 4.00 - 10.80 x10'3/uL 11/28/2024 3:03 PM CDT [facility] RBC 4.53 4.50 - 6.10 x10'6/uL 11/28/2024 3:03 PM CDT [facility] HGB 13.9 13.0 - 18.0 G/DL 11/28/2024 3:03 PM CDT [facility] HCT 40.6 37.0 - 52.0 % 11/28/2024 3:03 PM CDT [facility] MCV 89.6 78.0 - 100.0 FL 11/28/2024 3:03 PM CDT [facility] MCH 30.7 27.0 - 31.0 PG 11/28/2024 3:03 PM CDT [facility] MCHC 34.2 33.0 - 36.0 G/DL 11/28/2024 3:03 PM T [facility] RDW 13.6 11.5 - 14.5 % 11/28/2024 3:03 PM CDT [facility] PLT 114(L) 150 - 350 x10'3/uL 11/28/2024 3:03 PM T [facility] MPV 11.8(H) 7.4 - 10.4 FL 11/28/2024 3:03 PM [facility] DIFFERENTIAL TYPE AUTOMATED DIFFERENTIAL 11/28/2024 3:03 [facility] NEUTROPHILS % 69.7 % 11/28/2024 3:03 PM T [facility] LYMPHOCYTES % 17.7 % 11/28/2024 3:03 PM T [facility] MONOCYTES % 10.9 % 11/28/2024 3:03 PM CDT [facility] EOSINOPHILS % 1.4 % 11/28/2024 3:03 PM CDT [facility] BASOPHILS % 0.3 % 11/28/2024 3:03 PM CDT [facility] IMMATURE GRANS % 0.0 % 11/28/2024 3:03 PM CDT [facility] ABS. NEUTROPHILS 4.60 1.60 - 8.30 x10'3/uL 11/28/2024 3:03 PM CDT [facility] ABS. LYMPHOCYTES 1.17 0.80 - 4.70 x10'3/uL 11/28/2024 3:03 PM CDT [facility] ABS. MONOCYTES 0.72 0.00 - 1.50 x10'3/uL 11/28/2024 3:03 PM CDT [facility] ABS. EOSINOPHILS 0.09 0.00 - 0.40 x10'3/uL 11/28/2024 3:03 PM CDT [facility] ABS. BASOPHILS 0.02 0.00 - 0.20 x10'3/uL 11/28/2024 3:03 PM CDT [facility] ABS. IMMATURE GRANULOCYTES 0.00 0.00 - 0.03 x10'3/uL 11/28/2024 3:03 PM CDT [facility] 11/28/2024 1:17 PM CDT us Sandi [facility] Final Resul t [facility] [address] [place] [address], * XR ABD FLAT+UPRIGHT (11/28/2024 10:19 AM CDT) Anatomical Region Laterality Modality Abdomen Radiographic Sandhya ging 11/28/2024 9:59 AM CDT Narrative 11/29/2024 7:52 PM CDT [facility] [place] [address] EXAMINATION: XR ABD FLAT+UPRIGHT HISTORY: Abdominal pain and distention. COMPARISON: None. TECHNIQUE: Multiple AP views of the abdomen and pelvis. FINDINGS: There is a nonobstructive bowel gas pattern. No evidence of free air. There are cholecystectomy clips. There are multilevel degenerative changes within the spine. There are pelvic phleboliths. Moderate to large stool burden which can be seen with constipation. The liver appears enlarged. IMPRESSION: 1. Nonobstructive bowel gas pattern. 2. Moderate to large stool burden which can be seen with constipation. 3. Hepatomegaly. Referred By: Interpreted By: Jaron Brady DO, 11/29/2024 7:51 PM Procedure Note Jaron Brady DO - 11/29/2024 [facility] Internal [facility] [place] [address] EXAMINATION: XR ABD FLAT+UPRIGHT HISTORY: Abdominal pain and distention. COMPARISON: None. TECHNIQUE: Multiple AP views of the abdomen and pelvis. FINDINGS: There is a nonobstructive bowel gas pattern. No evidence of free air.There are cholecystectomy clips. There are multilevel degenerativechanges within the spine. There are pelvic phleboliths. Moderate tolarge stool burden which can be seen with constipation. The liver appearsenlarged. IMPRESSION: 1. Nonobstructive bowel gas pattern. 2. Moderate to large stool burden which can be seen with constipation. 3. Hepatomegaly. Referred By: Interpreted By: Jaron Brady DO, 11/29/2024 7:51 PM [facility]i [facility] Final Resul t * OUTSIDE PT/INR (SCAN ORDER) (10/16/2024) 10/16/2024 us [facility] Scanned SCANNING Final Resu lt * OUTSIDE LAB (SCAN ORDER) (10/16/2024) Only the most recent of11 resultswithin the time period is included. 10/16/2024 [facility] Scanned SCANNING Final Resu lt * IMAGE GENERIC (10/16/2024) Anatomical Region Laterality Modality Other 10/16/2024 [facility] Scanned SCANNING Final Resu lt * TROPONIN, QUANT (09/19/2024 6:05 PM CDT) Only the most recent of2 resultswithin the time period is included. TROPONIN I HIGH SENSITIVITY 6 0 - 75 ng/L 09/19/2024 6:34 PM CDT [facility] Comment: HIGH DOSES OF BIOTIN, TROPONIN-SPECIFIC AUTOANTIBODIES, AND ANTIBODY THERAPY CONTAINING HAMA MAY INTERFERE WITH THIS TEST RESULT. CORRELATION TO CLINICAL HISTORY AND PRESENTATION RECOMMENDED. 09/19/2024 6:05 PM CDT Aiden Mendiola MD LABORATORY Final Resul t [facility] [address] [place] [address], * INFLUENZA A & B (09/19/2024 5:10 PM CDT) SPECIMEN TYPE NASOPHARYNGEAL SWAB 09/19/2024 5:18 PM CDT [facility] INFLUENZA A NEGATIVE NEGATIVE 09/19/2024 5:40 PM CDT [facility] INFLUENZA B NEGATIVE NEGATIVE 09/19/2024 5:40 PM CDT [facility] NASAL NASOPHARYNGEAL SWAB / Unknown 09/19/2024 5:10 PM CDT Aiden Mendiola MD MICROBIOLOGY - GENERAL LORENZA BULLARD Final Result Performing Organization Address City/[facility]/ZIP Co de Phone Number [facility] [address] [place] [address], [place] [phone] * RESP SYNCYTIAL VIRUS (09/19/2024 5:10 PM CDT) SPECIMEN TYPE NASOPHARYNGEAL SWAB 09/19/2024 5:16 PM CDT [facility] RAPID RSV NEGATIVE NEGATIVE 09/19/2024 5:40 PM CDT [facility] NASOPHARYNGEAL SWAB / Unknown 09/19/2024 5:10 PM CDT Aiden Mendiola MD MICROBIOLOGY - GENERAL [place]ORENZA BULLARD Final Result Performing Organization Address [facility] Co de Phone Number [facility] [address] [place] [address], [place] [phone] * XR CHEST PORTABLE (09/19/2024 5:01 PM CDT) Anatomical Region Laterality Modality Chest Radiographic Sandhya ging 09/19/2024 5:10 PM CDT Impressions 09/19/2024 5:11 PM CDT IMPRESSION: No radiographic evidence of active chest disease. Ordered By: AIDEN MENDIOLA Interpreted By: Tuan Morales MD, 09/19/2024 5:10 PM Narrative 09/19/2024 5:[address] [place] [address] Examination: XR CHEST PORTABLE Exam time: 09/19/2024 5:00 PM Clinical history: Chest pain Comparison: 05/12/2023 AP chest Technique: AP upright view Findings: Multiple external wires and leads. Cardiac silhouette and pulmonary vasculature are within normal limits. Metallic density cardiac loop recorder projecting over the left heart border. No evidence of pleural effusion. No evidence of pneumothorax. Procedure Note Tuan Morales MD - 09/19/2024 [facility] [address] [place] [address] Examination: XR CHEST PORTABLE Exam time: 09/19/2024 [...] By: Tuan Morales MD, 09/19/2024 5:10 PM us Aiden Mendiola MD GENERAL IMAGING Final Resul t * PRO-BRAIN NATRIURETIC PEPTIDE (09/19/2024 4:10 PM CDT) PRO-B TYPE NATRIURETIC PEPTIDE 36 <125 PG/ML 09/19/2024 5:06 PM CDT [facility] Comment: CUT POINTS ESTABLISHED BY [...] Aiden Mendiola MD LABORATORY Final Resul t [facility] [address] [place] [address], * ECG 12 lead (09/19/2024 3:58 PM CDT) 09/19/2024 3:58 PM CDT Narrative [facility] ([facility]) RAD - 09/21/2024 7:24 AM CDT [facility] Test Date: 2024-09-19 Pat Name: KLAUDIA SUDHA Department: 85 Room: [place] [address] 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1960 Requested By: AIDEN MENDIOLA Order Number: [id number] Reading MD: Baron Sanchez Measurements Intervals [place] Rate: 79 P: 23 CT: 171 QRS: 2 QRSD: 165 T: 21 QT: 408 QTc: 469 Interpretive Statements SINUS RHYTHM RIGHT BUNDLE BRANCH BLOCK [120+ ms QRS DURATION, UPRIGHT V1, 40+ ms S IN I/aVL/V4/V5/V6] Compared to ECG 05/12/2023 16:05:34 No significant changes Procedure Note Baron Sanchez MD - 09/21/2024 [facility] Test Date: 2024-09-19 Pat Name: KLAUDIA ZAMBRANO Department: 85 Room: [place] [address] 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1960 Requested By: AIDEN MENDIOLA Order Number: [id number] Reading MD: Baron Sanchez Measurements Intervals [place] Rate: 79 P: 23 CT: 171 QRS: 2 QRSD: 165 T: 21 QT: 408 QTc: 469 Interpretive Statements SINUS RHYTHM RIGHT BUNDLE BRANCH BLOCK [120+ ms QRS DURATION, UPRIGHT V1, 40+ ms SIN I/aVL/V4/V5/V6] Compared to ECG 05/12/2023 16:05:34 No significant changes us Aiden Mendiola MD ECG ORDERABLES Final Resul t [facility] ([facility]) RAD * CT GENERIC (09/10/2024) Anatomical Region Laterality Modality Other 09/10/2024 [facility] Scanned SCANNING Final Resu lt * DIABETIC RETINOPATHY EXAM (NEGATIVE) (04/27/2024) [facility] Scanned SCANNING Final Resu lt [facility] ONBASE * HEMOGLOBIN, GLYCOSYLATED (02/05/2024) HGB A1C 6.5 % [facility] 02/05/2024 us Sandi WAGNERNP LABORATORY Final Resul t Performing Organization Address City/[facility]/ZIP Co de Phone Number [facility] [address] [place] [address], * (ABNORMAL) LIPID PANEL (05/13/2023 6:00 AM CDT) CHOLESTEROL 87 <200 MG/DL 05/13/2023 7:18 AM CDT [facility] TRIGLYCERIDES 213(H) <150 MG/DL 05/13/2023 7:18 AM CDT [facility] HDL 24(L) >40.0 MG/DL 05/13/2023 7:18 AM CDT [facility] LDL (CALCULATED) 20 <100 MG/DL 05/13/2023 7:18 AM CDT [facility] NON HDL CHOLESTEROL 63 <130 MG/DL 05/13/2023 7:18 AM CDT [facility] CHOL/HDL RATIO 3.6 0.0 - 4.5 05/13/2023 7:18 AM CDT [facility] VLDL CALCULATION 43 5 - 55 MG/DL 05/13/2023 7:18 AM CDT [facility] LIPID INTERPRETATION 05/13/2023 7:18 AM CDT [facility] Comment: NIH CONCENSUS REPORT RECOMMENDATIONS: ADULT CHILD LOW RISK: CHOLESTEROL <200 <170 TRIGLYCERIDE <150 --- HDL >=60 --- LDL <100 <110 BORDERLINE: CHOLESTEROL 200-239 170-199 TRIGLYCERIDE 150-199 --- HDL 40-59 --- LDL 100-159 110-129 HIGH RISK: CHOLESTEROL >=240 >=200 TRIGLYCERIDE >=200 --- HDL <40 --- LDL >=160 >=130 05/13/2023 6:00 AM CDT Ayanna Bellamy MD LABORATORY Final Re sult [facility] [address] [id number], * HEPATITIS C ANTIBODY W/RFX TO HCV [...] a test for HCV RNA (test code 56756) is suggested. For additional information please refer to http://education.DealerRater.Tripl/faq/ELC99x7 (This link is being provided for informational/ educational purposes only.) 06/28/2021 11:2 2 AM CDT 06/29/2021 10:18 AM CDT us Sandi Alfaro APNP LABORATORY Final Resul t [facility] [address] [place] [id number] * CT CHEST WO CONT LOW DOSE [...] As above. Thank you for choosing the [facility]'s Lung Screening Program. Referred By: [...] in the left lung base posteriorly. Implanted ekg monitor tech device within the left chest subcutaneous tissues. [...] As above. Thank you for choosing the [facility]'s Lung ScreeningProgram. Referred By: NICK [...] 11:13 PM 05/01/2017 6:00 PM Care Teams Sustainability Project Manager Relationship Specialty Start Date End Date Sandi Alfaro APNP Family & Internal Medicine [address] [address] PCP - General ADVANCED PRACTICE SAFETY PHYSICIAN 04/28/17 Cheryl Huston media associate (Ambulatory) REGISTERED NURSE 03/23/19
--- OUTSIDE RECORDS SUMMARY | 2024-12-01 21:46 | XMS_ITS | Encounter Summary ---
Author Organization [facility] Healthcare Address [address] [place] [address] Care Team Providers Care Machine Stemmer Name Role Phone Salo Forrest MD Primary Care Provider +- [phone] Sandi Alfaro Primary Care Provider + Encounter Details Date Type Department Care Team (Late st Contact Info) Description 05/11/2017 Orders Only [facility] Health Information Management [address] [place] [address] Scanning, Provider Social History Tobacco Use Types Packs/Day Years Used Date Smoking Tobacco: Former Smokeless Tobacco: Never Alcohol Use Standard Drinks/Week Comments Yes 0 (1 standard drink = 0.6 oz pur e alcohol) Sex and Gender Information Value Date Recorded Sex Assigned at Not on file 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
--- OUTSIDE RECORDS SUMMARY | 2024-12-01 21:46 | XMS_ITS | Encounter Summary ---
Author Organization [facility] Address [address] [place] [address] Care Team Providers Care Fairing Worker Name Role Phone Sandi Alfaro Primary Care Provider +1- [phone] Cheryl Huston RN Unavailable Unavailable Encounter Details Date Type Department Care Team (Latest Contact Info) Description 11/29/2024 Results Follow-Up [facility] Family & Internal Medicine [facility] [address] [place] [address] Sandi Alfaro APNP [address] [place] [address] COMPREHENSIVE METABOLIC PANEL, CBC W/DIFF AUTOMATED, XR ABD FLAT+UPRIGHT Social History Tobacco Use Types Packs/Day Years Used Date Smoking Tobacco: Former Cigarettes 0.3 40 Q uit: 02/17/2024 Smokeless Tobacco: Never Comments:currently smoking 1 -2 cigarettes a day Alcohol Use Standard Drinks/Week Comments Yes 0 (1 standard drink = 0.6 oz pur e alcohol) very rarely 6 beers/year [facility] Utilities Answer Date Recorded In the past 12 months has [employer], gas, oil, or water [employer] threatened to shut off services in your [...] any clubs o r organizations such as rastafari groups, unions, fraternal or athletic groups, or [...] Recorded Patient Health Questionnaire-2 Score 0 03/31/2024 [facility] of Occupat ionmn Health - Occupational Stress Questionnaire Answer Date [...] Sex Assigned at Male 03/31/2024 8:58 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 Legal Sex Male 8:01 PM CDT Gender [...] documented in this encounter Progress Notes * Sachin Pedraza MA - 11/30/2024 11:52 AM CDTAddended by: SACHIN PEDRAZA on: 11/30/2024 11:52 AM Modules accepted: Orders * Sachin Pedraza MA - 11/30/2024 11:50 AM CDT ----- Message from Sandi Alfaro sent at 11/29/2024 9:37 AM CDT ----- Looks like he is a little dehydrated, some decreased renal function---increase water intake, reducecaffeinated beverages, reduce NSAID use Platelets dropped again--but he typically runs on low side Recheck CBC in about 3 months ----- Message ----- From: Estephania [id number] Sent: 11/28/2024 3:03 PM CDT To: CRIS Rizo Patient verbally informed of results and understands instructions. Order placed for cbc to rpt in 3month, thelma martinez * Sachin Pedraza MA - 11/30/2024 11:43 AM CDT ----- Message from Sandi Alfaro sent at 11/30/2024 8:18 AM CDT ----- IMPRESSION: 1. Nonobstructive bowel gas pattern. 2. Moderate to large stool burden which can be seen with constipation. 3. Hepatomegaly. Looks like there is some constipation---try Miralax daily until having regular BM's Increase daily fiber and water Decrease constipating foods---bread, rice, bananas, ----- Message ----- From: User, [id number] Sent: 11/29/2024 7:53 PM CDT To: CRIS Rizo Pt verbally informed of results and understands instructions, juan,rma documented in this encounter Plan of Treatment Scheduled Orders Name Type Priority Associated Diagnoses Orde r Schedule CBC W/DIFF AUTOMATED Lab Routine Thrombocytopenia, unspecified Expected: 03/02/2025 (Approximate), Expires: 11/30/2025 documented as of this encounter Visit Diagnoses Diagnosis Thrombocytopenia, unspecified- Primary documented in this encounter Additional Health Concerns Assessment Noted Time PHQ-9 Depression Total Score: 0 05/21/19 24 11:21 AM CDT documented as of this encounter Care Teams Fairing Worker Relationship Specialty Start Date End Date Sandi Alfaro APNP Family & [place] [address] PCP - General ADVANCED PRACTICE PROFESSIONAL SPORTS SCOUT 04/28/17 Cheryl Huston, production checker (Ambulatory) REGISTERED NURSE 03/23/19 documented as of this encounter
--- OUTSIDE RECORDS SUMMARY | 2024-12-01 21:46 | XMS_ITS | Encounter Summary ---
Author Organization [facility] Healthcare Address [address] [place] [address] Care Team Providers Care Digital Imaging Technician Name Role Phone Salo Forrest MD Primary Care Provider +- [phone] Sandi Alfaro Primary Care Provider + Encounter Details Date Type Department Care Team (Late st Contact Info) Description 08/03/2017 Orders Only [facility] Health Information Management [address] [place] [address] Scanning, Provider Social History Tobacco Use Types Packs/Day Years Used Date Smoking Tobacco: Former Smokeless Tobacco: Never Alcohol Use Standard Drinks/Week Comments Yes 0 (1 standard drink = 0.6 oz pur e alcohol) Sex and Gender Information Value Date Recorded Sex Assigned at Not on file 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
--- OUTSIDE RECORDS SUMMARY | 2024-12-01 21:46 | XMS_ITS | Encounter Summary ---
Author Organization [facility] Healthcare Address [address] [place] [address] Care Team Providers Care Environmental Systems Coordinator Name Role Phone Sandi Alfaro Primary Care Provider + Encounter Details Date Type Department Care Team (Late st Contact Info) Description 12/25/2023 Orders Only [facility] Health Information Management [address] [place] [address] Scanning, Provider Social History Tobacco Use Types Packs/Day Years Used Date Smoking Tobacco: Some Days Cigarettes 0.3 15 Smokeless Tobacco: Never Alcohol Use Standard Drinks/Week Comments Yes 0 (1 standard drink = 0.6 oz pur e alcohol) Sex and Gender Information Value Date Recorded Sex Assigned at Not on file 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
--- OUTSIDE RECORDS SUMMARY | 2024-12-01 21:46 | XMS_ITS | Encounter Summary ---
Author Organization [facility] Address [address] [place] [address] Care Team Providers Care Manufacturing Test Engineer Name Role Phone Sandi Alfaro Primary Care Provider [phone]- [phone] Cheryl Huston RN Unavailable Unavailable Encounter Details Date Type Department Care Team (Late st Contact Info) Description 08/27/2022 MyChart Message Enc [facility] - [facility] [address] [place], [place] [id number] Protochipshart, [facility] Provider Air Quality Message Social [...] Sex Assigned at Male 03/31/2024 8:58 AM NEEDLE LOOM 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
--- OUTSIDE RECORDS SUMMARY | 2024-12-01 21:46 | XMS_ITS | Patient Health Record ---
Author Organization [facility] Address [address] [place], [place] [address] Care Team Providers Care Quality Assurance Inspector Name Role Phone PIETER WALSH Unavailable [phone] Sandi Alfaro Unavailable Unavailable Allergies No Known Allergies Reason For Referral No Information Medications Medication SIG (Take, Route, Frequency, Duration) Notes Start Date End Date Status Xarelto Active Augmented betamethasone 0.5 MG/ML Topical Cream CUTANEOUS Augmented betamethasone 0.5 MG/ML Topical CreamOriginal MedicationAugmented betamethasone 0.5 MG/ML Topical Cream *Reorder from Floor64 for eRx and Interaction Alerts* 7 Active Plavix Active betamethasone 0.5 MG/ML / clotrimazole 10 MG/ML Topical Cream CUTANEOUS betamethasone 0.5 MG/ML / clotrimazole 10 MG/ML Topical CreamOriginal Medicationbetamethasone 0.5 MG/ML / clotrimazole 10 MG/ML Topical Cream *Reorder from Floor64 for eRx and Interaction Alerts* 7 Active betamethasone 0.5 MG/ML / clotrimazole 10 MG/ML Topical Cream [Lotrisone] CUTANEOUS betamethasone 0.5 MG/ML / clotrimazole 10 MG/ML Topical Cream [Lotrisone]Original Medicationbetamethasone 0.5 MG/ML / clotrimazole 10 MG/ML Topical Cream [Lotrisone] *Reorder from Floor64 for eRx and Interacti 7 Active clobetasol propionate 0.0005 MG/MG Topical Ointment [Temovate] CUTANEOUS clobetasol propionate 0.0005 MG/MG Topical Ointment [Temovate]Original Medicationclobetasol propionate 0.0005 MG/MG Topical Ointment [Temovate] *Reorder from [employer] for eRx and Interaction Alerts* 7 Active clotrimazole 10 MG/ML Topical Cream CUTANEOUS clotrimazole 10 MG/ML Topical CreamOriginal Medicationclotrimazole 10 MG/ML Topical Cream *Reorder from [employer] for eRx and Interaction Alerts* 7 Active [...] 02/26/2016 Administered Vital Signs Height-cm 182.88 cm 11/21/2024 Weight-kg 149.69 kg 11/21/2024 Height 72.00 in 11/21/2024 Weight 330 lbs 11/21/2024 BMI 44.75 kg/m2 11/21/2024 Encounters Encounter Location Date Provider Diagnosis [facility] [address] [place] [id number] 11/21/2024 PIETER SNOOK Tinea unguium B35.1 ; Pain in right toe(s) M79.674 ; Pain in left toe(s) M79.675 ; Atherosclerosis of [place] arteries of extremities with intermittent claudication, bilateral legs I70.213 and Type 2 diabetes mellitus with other circulatory complications E11.59 [facility] [address] [place] [id number] 01/25/2024 PIETER SNOOK Tinea unguium B35.1 ; Pain in right toe(s) M79.674 ; Pain in left toe(s) M79.675 ; Atherosclerosis of [place] arteries of extremities with intermittent claudication, bilateral legs I70.213 and Type 2 diabetes mellitus with other circulatory complications E11.59 [facility] [address] [place] [id number] 03/28/2024 PIETER SNOOK Tinea unguium B35.1 ; Pain in right toe(s) M79.674 ; Pain in left toe(s) M79.675 ; Atherosclerosis of [place] arteries of extremities with intermittent claudication, bilateral legs I70.213 and Type 2 diabetes mellitus with other circulatory complications E11.59 [facility] [address] [place] [id number] 06/27/2024 PIETER SNOOK Tinea unguium B35.1 ; Pain in right toe(s) M79.674 ; Pain in left toe(s) M79.675 ; Atherosclerosis of [place] arteries of extremities with intermittent claudication, bilateral legs I70.213 and Type 2 diabetes mellitus with other circulatory complications E11.59 [facility] [address] [place] [address] [id number] 09/19/2024 PIETER SNOOK Tinea unguium B35.1 ; Pain in right toe(s) M79.674 ; Pain in left toe(s) M79.675 ; Atherosclerosis of [place] arteries of extremities with intermittent claudication, bilateral [...] subungual debris and necrotic tissue removed 11/21/2024 Tinea unguium (ICD-10 - B35.1) NAIL DEBRIDEMENT: Nails 1-5 Bilateral were debrided extensively with nail nippers and emery board, reducing length and girth to pink healthy tissue with any subungual debris and necrotic tissue removed 11/21/2024 Pain in right toe(s) (ICD-10 - M79.674) 09/19/2024 Pain in right toe(s) (ICD-10 - M79.674) 06/27/2024 Pain in right toe(s) (ICD-10 - M79.674) 03/28/2024 Pain in left toe(s) (ICD-10 - M79.675) 01/25/2024 Pain in right toe(s) (ICD-10 - M79.674) 01/25/2024 Pain in left toe(s) (ICD-10 - M79.675) 03/28/2024 Atherosclerosis of [place] arteries of extremities with intermittent claudication, bilateral legs (ICD-10 - I70.213) 06/27/2024 Pain in left toe(s) (ICD-10 - M79.675) 09/19/2024 Pain in left toe(s) (ICD-10 - M79.675) 11/21/2024 Pain in left toe(s) (ICD-10 - M79.675) 06/27/2024 Atherosclerosis of [place] arteries of extremities with intermittent claudication, bilateral legs (ICD-10 - I70.213) 09/19/2024 Atherosclerosis of [place] arteries of extremities with intermittent claudication, bilateral legs (ICD-10 - I70.213) 11/21/2024 Atherosclerosis of [place] arteries of extremities with intermittent claudication, bilateral legs (ICD-10 - I70.213) 01/25/2024 Atherosclerosis of [place] arteries of extremities with intermittent claudication, bilateral [...] as well as the Amputation Prevention Guide. 11/21/2024 Type 2 diabetes mellitus with other [...] Appt Details Provider Name:PIETER WALSH, 11:10:00 AM, [address], [facility], [place], [place], [id number], Insurance Providers Payer Name Payer Address Payer Phone Subscriber Number Group Number Insured Name Patient Relationship to Insured Coverage Start Date Coverage End Date Medicare Part B [facility] [address] [place] [id number] KLAUDIA HALEY Self - patient is the insured Medical (General) History Medical History History ICD Code Diabetic
--- OUTSIDE RECORDS SUMMARY | 2024-12-01 21:46 | XMS_ITS | Encounter Summary ---
Author Organization [facility] Address [address] [place] [address] Care Team Providers Care Coater Helper Name Role Phone Sandi Alfaro Primary Care Provider [phone] Cheryl Huston RN Unavailable Unavailable Encounter Details Date Type Department Care Team (Late st Contact Info) Description 08/18/2023 HitMeUp Message Enc [facility] Medical Group Multispecialty Care - [address], [address] [place] [phone] Hydrocapsule, [facility] Provider Results Social History Tobacco Use Types Packs/Day Years Used Date Smoking Tobacco: Every Day Cigarettes 0.3 40 Smokeless Tobacco: Never Comments:currently smoking 2 -3 cigarettes a day Alcohol Use Standard Drinks/Week Comments Yes 0 (1 standard drink = 0.6 oz pur e alcohol) very rarely 6 beers/year [facility] Utilities Answer Date Recorded In the past 12 months has health system [employer], gas, oil, or water [employer] threatened to shut off services in your [...] How often do you attend chur or congregation services? 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
--- OUTSIDE RECORDS SUMMARY | 2024-12-01 21:46 | XMS_ITS | Clinical Summary ---
Author Organization [facility] [employer] Address [address] [place] [address] Care Team Providers Care Package Collector Name Role Phone Sandi Alfaro COUNCILOR-INSULATION MANAGER Primary Care Provider Source Comments [facility] [employer],non-owned Affiliates and Associated Physician Practices is amultiple site organization consisting of ambulatory clinics and hospital sitesin [place], [place], [place] and [place]. This disclosure is being madepursuant to the Care Everywhere program and may not contain all information available regarding this patient. 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 Blood BLOOD SPECIMEN / Unknown Venipuncture / Unknown 05/26/2018 4:21 PM CDT 05/26/2018 4:26 PM CDT Jim Ann MD LAB - HEMATOLOGY ORDERABLES F inal Result Performing Organization Address [facility] Co de Phone Number [address] [phone] * HEPATITIS C AB SCREEN RFLX NAAT QUANT (05/26/2018 4:21 PM CDT) Pathologist [facility] Hepatitis C Antibody Non-react kendell Non-reac tive 05/26/2018 5:13 PM CDT [facility] Comment: Hepatitis C Antibody screen indicates [...] ORDERABLES Fi nal Result Performing Organization Address City/[facility]/ZIP Co de Phone Number [address] [address], [place] [phone] from Last 3 Months or Most Recently Relevant to Health Maintenance Insurance MEDICARE MEDICAID - OUT OF STATE MEDICARE MEDICAID - [place] Advance Directives * Full Code (Latest Code Status on File) Date Activated Date Inactivated Comments 05/26/2018 2:01 PM 05/28/2018 11:56 AM Care Teams Package Collector Relationship Specialty Start Date End Date Sandi Alfaro APRN-INSULATION MANAGER [address] [place] [address] PCP - General 08/27/21
[2024-12-01 21:48] LABS: Influenza A QL RT-PCR Negative (Negative); Influenza B QL RT-PCR Negative (Negative); RSV RNA, RT-PCR Negative (Negative); SARS-CoV-2 RNA PCR Negative (Negative)
[2024-12-01 21:53] LABS: Add Urine Microscopic? YES; Appearance Urine Clear (Clear); Glucose Urine UA 3+ mg/dL (Negative); Leukocyte Esterase Ur Negative LEU/UL (Negative); Nitrate Urine Negative (Negative); Specific Grav Ur 1.020 (1.001-1.035)
[2024-12-01 22:02] LABS: Beta-Hydroxybutyrate/Acetoace. 0.44 mmol/L (0.02-0.27)
[2024-12-01] MEDS: ONDANSETRON INJ 4 MG/2 ML VIAL IV PUSH (22:05)
[2024-12-01] MEDS: MECLIZINE HCL 25 MG TABLET PO (22:05)
[2024-12-01 22:08] LABS: NT Pro B Type Natriuretic Pept 31 pg/mL (19.9-100); Troponin I < 0.012 ng/mL (0.000-0.034)
[2024-12-01] MEDS: diazePAM INJ (*CRX) 10 MG/2 ML SYRINGE 2 MG IV PUSH (22:35)
[2024-12-02 00:02] VITALS: BP 133/79; PULSE 75; RESP 21; O2SAT 97
[2024-12-02 00:09] VITALS: PULSE 72; RESP 20; O2SAT 96
[2024-12-02 00:17] VITALS: BP 124/71; PULSE 75; RESP 27; O2SAT 94
[2024-12-02 00:19] VITALS: PULSE 70; RESP 17; O2SAT 94
[2024-12-02 00:30] VITALS: PULSE 70; RESP 22; O2SAT 96
[2024-12-02] MEDS: PROCHLORPERAZINE EDISYLATE 10 MG/2 ML VIAL 5 MG IV PUSH (01:20)
[2024-12-02] MEDS: KETOROLAC 15 MG/ML VIAL (*BKC) IV PUSH (01:20)
[2024-12-02] MEDS: SODIUM CHLORIDE 0.9% IV 500 ML 999 ML IV CONT (01:20)
== END 2024-12-02 01:48 | disposition home or self-care (01) ==
PROVIDERS: Emergency Medicine; Emergency Provider Student in an Organized Health Care Education/Training Program; PCP Registered Nurse
DX: N17.9 Acute kidney failure, unspecified (principal); J40 Bronchitis, not specified as acute or chronic; D64.9 Anemia, unspecified; D69.6 Thrombocytopenia, unspecified; R51.9 Headache, unspecified; R80.9 Proteinuria, unspecified; E11.65 Type 2 diabetes mellitus with hyperglycemia; R81 Glycosuria; R42 Dizziness and giddiness; M50.322 Other cervical disc degeneration at C5-C6 level; R29.6 Repeated falls; Z20.822 Contact with and (suspected) exposure to COVID-19; I50.9 Heart failure, unspecified; I11.0 Hypertensive heart disease with heart failure; I25.10 Atherosclerotic heart disease of native coronary artery without angina pectoris; I25.2 Old myocardial infarction; I69.354 Hemiplegia and hemiparesis following cerebral infarction affecting left non-dominant side; E11.42 Type 2 diabetes mellitus with diabetic polyneuropathy; E78.5 Hyperlipidemia, unspecified; J44.9 Chronic obstructive pulmonary disease, unspecified; G47.33 Obstructive sleep apnea (adult) (pediatric); K21.9 Gastro-esophageal reflux disease without esophagitis; L40.9 Psoriasis, unspecified; F32.A Depression, unspecified; Z95.818 Presence of other cardiac implants and grafts; Z95.5 Presence of coronary angioplasty implant and graft; Z87.01 Personal history of pneumonia (recurrent); Z86.16 Personal history of COVID-19; Z87.891 Personal history of nicotine dependence; Z86.0100 Personal history of colon polyps, unspecified; Z90.49 Acquired absence of other specified parts of digestive tract; Z79.85 Long-term (current) use of injectable non-insulin antidiabetic drugs; Z79.84 Long term (current) use of oral hypoglycemic drugs; Z79.02 Long term (current) use of antithrombotics/antiplatelets; Z79.899 Other long term (current) drug therapy; Z79.01 Long term (current) use of anticoagulants; R94.31 Abnormal electrocardiogram [ECG] [EKG]; I45.10 Unspecified right bundle-branch block
CPT/HCPCS: 36415; 70450; 71045; 72125; 80053; 81001; 82010; 83880; 84484; 85025; 85055; 85380; 87637; 93005; 96361; 96374; 96375; 99284; A9270; J0780; J1200; J1885; J2405; J3360; J7040; J8540

== ENCOUNTER 2024-12-07 08:45 | Outpatient (RCR) | payer MEDICARE, MEDICAID, SELFPAY | END 2025-01-17 11:01 | disposition home or self-care (01) | LOC: ANHCPREHAB 08:45 | PROVIDERS: PCP Registered Nurse; Visit Provider Internal Medicine | DX: Z51.89 Encounter for other specified aftercare (principal); Z98.61 Coronary angioplasty status | CPT/HCPCS: 93798 ==

== ENCOUNTER 2025-01-11 18:29 | Emergency (ER) | payer MEDICARE, MEDICAID, SELFPAY ==
--- NOTE | ~2025-01-11 | XR_ITS ---
XR chest 2V HOSTORY: near syncopal COMPARISON:[ None] FINDINGS: Frontal and lateral views of the chest were obtained. Groundglass opacities are present bilaterally. The heart size is normal in size. Pulmonary vasculature is unremarkable. Osseous structures are intact. IMPRESSION: Groundglass opacities bilaterally. [ ] Reviewed, dictated and finalized at location S. CONDITIONER SUPERVISOR
--- NOTE | ~2025-01-11 | CT_ITS ---
EXAMINATION: CTA brain carotid DATE: 01/12/2025 00:03 INDICATION: Headache. TECHNIQUE: Computed tomographic angiography (CTA) of the head was performed without and with 100 mL Omnipaque-350 intravenous contrast. CTA of the neck was performed with intravenous contrast. Automated exposure control and iterative reconstruction technique were employed. The dose-length product was 2003.62 mGy- cm. Maximum intensity projection and volume rendered 3D-reconstructions were created by the technologist on a separate workstation. COMPARISON: Head CT 12/01/24, CTA 12/24/2023 FINDINGS: HEAD CTA: There are scattered areas of low attenuation in the cerebral white matter. There is no intracranial hemorrhage, acute infarction, or abnormal intracranial mass lesion. The ventricles are normal in size. The paranasal sinuses are clear. The orbits are normal. The mastoid air cells are normal. The vertebral arteries are codominant. There is no significant stenosis of basilar artery or the posterior cerebral arteries. There is no significant stenosis of the intracranial internal carotid arteries or anterior or middle cerebral arteries. Anterior communicating artery is normal. The posterior communicating arteries are normal. There is no aneurysm. NECK CTA: There are no pathologically enlarged lymph nodes. There is no significant stenosis of the vertebral arteries. There is mild plaque in proximal right internal carotid artery. There is 0% stenosis of the proximal right internal carotid artery relative to normal distal artery lumen diameter (NASCET criteria). There is 0% stenosis of the proximal left internal carotid artery relative to normal distal artery lumen diameter. There is severe cervical spondylosis. IMPRESSION: 1. Mild nonspecific cerebral white matter disease, which likely represents chronic small vessel ischemic disease. 2. No aneurysm or significant intracranial arterial stenosis. 3. 0% stenosis of the proximal internal carotid arteries relative to normal distal artery lumen diameters (NASCET criteria). Reviewed, dictated and finalized at location E. TE CONTROL MIRROR INSTALLER IMPRESSION: 1. 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 2. No aneurysm or significant intracranial arterial stenosis. 3. 0% stenosis of the proximal internal carotid arteries relative to normal dis fei artery lumen diameters (NASCET criteria).
[2025-01-11 18:52] VITALS: BP 139/77; PULSE 76; RESP 16; TEMP 36.4; O2SAT 98
--- NOTE | 2025-01-11 19:08 | ECG_ITS ---
Test Date: 2025-01-11 21:40:40 Measurements Intervals [place] Rate: 75 P: 11 CT: 164 QRS: 30 QRSD: 154 T: 18 QT: 436 QTc: 488 Interpretive Statements SINUS RHYTHM RIGHT BUNDLE BRANCH BLOCK Electronically Signed On 01-11-2025 22:35:46 CLINICIAN ONCOLOGY by Ricky Palacios D.O
[2025-01-11 20:52] LABS: Hematocrit 43.2 % (42.0-52.0); Hemoglobin 14.9 g/dL (14.0-18.0); Immature Granulocyte Percent A 0.4 % (0-0.5); Immature Platelet Fraction Pct 5.9 % (0.9-11.2); Lymphocytes Absolute Auto 1.31 K/mm3 (0.9-3.2); Mean Corpuscular HGB Conc 34.5 g/dl (32-36); Mean Corpuscular Hemoglobin 30.8 pg (26-34); Mean Corpuscular Volume 89.3 fl (80-100); Nucleated Red Blood Cells Absolute Auto 0.000 K/mm3 (0.0-0.012); Nucleated Red Blood Cells Perc 0.0 % (0.0-0.2); Platelet Count Result 125 k/mm3 (150-375); Red Blood Count 4.84 M/mm3 (4.6-6.20); White Blood Count 7.8 K/mm3 (4.5-10.0)
[2025-01-11 21:02] LABS: Alanine Aminotransferase 40 U/L (6-50); Albumin Level 4.5 g/dL (3.5-5.1); Alkaline Phosphatase 62 U/L (38-126); Anion Gap 10 mmol/L (4-12); Aspartate Amino Transferase 30 U/L (17-59); Bilirubin,Total 0.7 mg/dL (0.2-1.3); Blood Urea Nitrogen 21 mg/dL (9-20); Calcium 8.8 mg/dL (8.4-10.2); Carbon Dioxide 21 mmol/L (22-30); Chloride 104 mmol/L (98-107); Estimated CRCL calculation 89 ml/min; Estimated Glomerular Filt Rate > 60; Glucose 232 mg/dL (65-110); Potassium 4.6 mmol/L (3.4-5.0); Sodium 135 mmol/L (137-145); Total Protein 7.9 g/dL (6.3-8.2)
[2025-01-11 21:35] VITALS: BP 141/82; PULSE 79
[2025-01-11 21:36] VITALS: BP 158/78; PULSE 78
[2025-01-11 21:44] VITALS: BP 148/78; PULSE 71
--- NOTE | 2025-01-12 00:13 | ED.HA ---
HPI - Headache General Chief Complaint: Headache Stated Complaint: VILLASEÑOR, lightheaded Time Seen by Provider: 01/11/25 23:37 Source: patient Mode of arrival: ambulatory Limitations: no limitations History of Present Illness HPI Narrative: Patient presents with report a headache since Thursday that is still there as well as feeling lightheaded. In addition he reports that feels off balance with his gait affected. He denies that he would describe it as a dizziness as in his mind that is associated with rotational movement or spinning and he is not experiencing that. He has been feeling a little short of breath. He denies any ear pain but does report tinnitus and left sided hearing changes/loss. He denies being particularly symptomatic if he is lying down seated upright or even standing but that is when he starts to move/ambulate that he experiences issues, feeling like he might fall. He has used Tylenol for his headache. He reports the headache is bilateral parietal area. He has a history of 2 strokes in 2012 which did not leave him with any deficits. Around that time he had temporarily had to use a cane for ambulation he was raking some of his strength but has not had to use 1 since other than recently has started to use due to the balance issues. He states he will occasionally experience blurred vision but denies any diplopia or curtain defect. He says he used to have flashes and floaters but currently. He is on Plavix and Xarelto. Related Data Home Medications ?Medication ?Instructions ?Recorded ?Confirmed ?Last Taken ?Type amlodipine 10 mg tablet 10 mg PO DAILY 01/24/19 11/24/24 10/16/24 History bupropion HCl 150 mg tablet,12 hr 150 mg PO Q12H 01/24/19 11/24/24 10/16/24 History sustained-release (Wellbutrin SR) metformin 1,000 mg tablet 1,000 mg PO BID 01/24/19 11/24/24 10/16/24 History isosorbide mononitrate 60 mg 120 mg PO DAILY 01/09/20 11/24/24 10/16/24 History tablet,extended release 24 hr alprazolam 0.25 mg tablet 0.25 mg PO HS 08/21/21 11/24/24 10/15/24 History atorvastatin 80 mg tablet 80 mg PO DAILY 06/13/24 11/24/24 10/16/24 History dulaglutide 3 mg/0.5 mL 3 mg subcut WEEKLY 06/13/24 11/24/24 10/11/24 History subcutaneous pen injector (Trulicity) furosemide 40 mg tablet 40 mg PO DAILY 06/13/24 11/24/24 10/09/24 History budesonide 160 mcg-glycopyr 9 2 inh inhalation BID 06/28/24 11/24/24 08/16/24 History mcg-formot 4.8 mcg/actuation HFA inhaler (Breztri Aerosphere) rivaroxaban 2.5 mg tablet (Xarelto) 2.5 mg PO Q12H 07/12/24 11/24/24 10/16/24 History doxazosin 2 mg tablet 2 mg PO HS 08/19/24 11/24/24 10/15/24 History losartan 100 mg tablet 100 mg PO DAILY 09/10/24 11/24/24 10/16/24 History Allergies Allergy/AdvReac Type Severity Reaction Status Date / Time No Known Allergies Allergy Unknown Verified 01/11/25 18:31 [facility] Past Medical History Medical History (Updated 01/12/25 @ 00:55 by Yaima Liu MD) BMI greater than 40 Fatty liver Thrombocytopenia Hypertension Coronary artery disease Stent to the distal circumflex and Left anterior descending in 2014. Left anterior descending stent in 04/2015. COVID Transient ischemic attack multiple Diabetic peripheral neuropathy Peripheral vascular disease Deep venous thrombosis Gastric ulcer Obstructive sleep apnea on CPAP Hyperlipidemia Type 2 diabetes mellitus not on insulin Gastroesophageal reflux disease Chronic obstructive pulmonary disease Cerebrovascular accident x2; Mild left-sided weakness. Congestive heart failure Chronic anticoagulation Hydronephrosis Psoriasis Depression Fracture of fifth toe, right, closed Kidney stones Pneumonia Myocardial infarction Seasonal allergies Surgical History Surgical History History of coronary artery stent placement x3 History of tonsillectomy History of cholecystectomy History of lithotripsy History of rectal polypectomy History of cardiac catheterization multiple Family History Family History Mother Diabetes mellitus Arthritis Kidney stones Coronary artery disease Father Acute myocardial infarction <65yo Heart disease Kidney stones Hypertension Coronary artery disease Sibling Coronary artery disease Heart disease Hx of CABG Social History Social History Social History: Surrogate decision maker: Rena Dodd, friend. Code status: Full code. Reports having a grandchild (who plays baseball) though previously reported that he doesn't have children Smoking packs per day: 1 Smoking cigarettes per day: 20.0 Years smoked: 47 Smoking pack-years: 47.00 Smoking status: Former smoker Tobacco type: cigarettes Second hand tobacco smoke exposure: Yes Smoking end date: 02/22/24 Alcohol intake: former Drinks per week: 0 Substance use: never Substance use type: does not use Last use: 10/01/2023 Do You Feel Safe in your Home?: Yes Lack of Transportation: No Lack of Food: Never True Current Housing: I Have Housing Concerned About Future Housing: No Difficulty Paying Gas/Electric Bills: No Difficulty Paying for Meds: No Currently Unemployed: No Education: High School Diploma/GED Difficulty w/ Childcare or Family Care: No Living arrangements: with roommate(s) Additional living arrangements comments: The patient lives in [place] with a roommate. He has no children. Occupation/Education: other Additional occupation/education comments: Disabled. Spiritual care concerns: No Exam Narrative: GENERAL: Well-appearing, well-nourished, and in no acute distress. HEAD: Normocephalic, atraumatic. EYES: Non injected, non icteric. No vertical nystagmus. Patient does have 1 beats of fatigable nystagmus in bilateral eyes to the left horizontal; no nystagmus horizontal right. ENT: Nares clear, no rhinorrhea or epistaxis. Gross auditory acuity intact although he does seem diminished on the left. Bilateral tympanic membranes easily visualized without erythema bulging or effusion. No vesicles or erythema in external auditory canal. NECK: Supple. No meningismus. CHEST: Speaking in full sentences. No respiratory distress. HEART: Regular rate and rhythm. . ABDOMEN: Obese but Soft, nondistended. No rigidity or guarding. Not peritoneal EXTREMITIES: Normal range of motion. SKIN: Warm, dry, no rash. NEURO: No focal deficits. Alert and oriented. Answering questions. Following commands. Normal speech without aphasia or dysarthria. No ataxia on finger nose finger bilaterally. PSYCH: Normal mood and affect. Course Vital Signs Vital signs: Vital Signs Temperature 97.5 F L 01/11/25 18:52 Pulse Rate 76 01/11/25 18:52 Respiratory Rate 16 01/11/25 18:52 Blood Pressure 139/77 01/11/25 18:52 Pulse Oximetry 98 01/11/25 18:52 Temperature 97.5 F L 01/11/25 18:52 Pulse Rate 64 01/12/25 03:36 Respiratory Rate 20 01/12/25 03:36 Blood Pressure 90/60 L 01/12/25 03:36 Pulse Oximetry 96 01/12/25 03:36 MDM - Headache MDM Narrative Medical decision making narrative: Patient presents with report a headache and feeling lightheaded in particular feeling off balance with gait abnormalities and feeling like he might fall. The symptoms he especially notes when he starts ambulating. In the emergency department they are afebrile with vital signs within normal limits. Symptoms are not classically vertiginous. However, DIFFERENTIAL DIAGNOSES considered: Central causes: infection ( encephalitis, meningitis, cerebritis); vertebrobasilar arterial insufficiency, subclavian steal syndrome, cerebellar or brainstem hemorrhage or infarction, vertebrobasilar migraine, trauma ( temporal bone fracture, post concussive syndrome); tumor (brainstem or cerebellum); MS; temporal lobe epilepsy Peripheral causes: Foreign body, cerumen impaction, acute otitis media, labyrinthitis, benign paroxysmal positional vertigo, Meniere's disease, vestibular neuronitis, perilymphatic fistula, trauma, motion sickness, acoustic neuroma, ototoxic medications Meclizine given as first line agent, although does not sound consistent with BPPV. Hyperglycemia is without anion gap and not frankly acidotic. Pseudo hypo natremia as it corrects to 137/138. Orthostats reviewed and acceptable. Mild thrombocytopenia, chronic/stable. BNP normal. = Ambulation attempted at approximately 1:45 a.m. Still unsteady on his feat. Valium ordered as second line agent. Patient reassessed at approximately 3:20 a.m.. He is sleeping, resting comfortably, he states his headache is resolved. Nurse notes that he was able to walk around the emergency department did well without any gait instability. He has no complaints other than being tired, likely due to medication side effect and the fact that it is the middle of the night. Given patient's complaint hearing loss and tinnitus, my leading differentials for his symptoms or potentially labyrinthitis and/or Meniere's disease. Given patient has presented previously for similar, I do believe he would benefit from following up with Neurology and Otolaryngology and he is provided referral contact information for both. Otherwise stable for discharge. Medical Records Attestation: I reviewed the patient's medical records. Medical records narrative: Seen here 12/01/[address] noncontrast study at the time. Lab Data Attestation: I reviewed the patient's lab results. 01/11/25 20:45 01/11/25 20:45 Labs: Lab Results 01/11/25 01/12/25 Range/Units 20:45 00:53 WBC 7.8 (4.5-10.0) K/mm3 RBC 4.84 (4.6-6.20) M/mm3 Hgb 14.9 (14.0-18.0) g/dL Hct 43.2 (42.0-52.0) % MCV 89.3 (80-100) fl MCH 30.8 (26-34) pg MCHC 34.5 (32-36) g/dl RDW 14.3 (11.5-14.5) % Plt Count 125 L (150-375) k/mm3 MPV 10.7 H (7.4-10.4) fl Immature Gran % (Auto) 0.4 (0-0.5) % Neut % (Auto) 70.9 (45.5-73.1) % Lymph % (Auto) 16.8 L (18.3-44.2) % [place] % (Auto) 10.3 H (2.6-8.5) % Eos % (Auto) 1.5 (0-4.4) % Baso % (Auto) 0.1 L (0.2-1.2) % Lymph # (Auto) 1.31 (0.9-3.2) K/mm3 [place] # (Auto) 0.8 H (0.1-0.6) K/mm3 Eos # (Auto) 0.1 (0-0.3) K/mm3 Baso # (Auto) 0.0 (0.0-0.1) K/mm3 Abs Immat Gran (auto) 0.03 (0.00-0.031) K/mm3 Absolute Neuts (auto) 5.5 (1.3-6.7) K/mm3 Absolute Nucleated RBC 0.000 (0.0-0.012) K/mm3 Nucleated RBC % 0.0 (0.0-0.2) % % Immature Plt Fraction 5.9 (0.9-11.2) % Sodium 135 L (137-145) mmol/L Potassium 4.6 (3.4-5.0) mmol/L Chloride 104 (98-107) mmol/L Carbon Dioxide 21 L (22-30) mmol/L Anion Gap 10 (4-12) mmol/L BUN 21 H (9-20) mg/dL Creatinine 1.05 (0.7-1.3) mg/dL Estim Creat Clear Calc 89 ml/min Estimated GFR > 60 (59 - ) Glucose 232 H (65-110) mg/dL Calcium 8.8 (8.4-10.2) mg/dL Total Bilirubin 0.7 (0.2-1.3) mg/dL AST 30 (17-59) U/L ALT 40 (6-50) U/L Alkaline Phosphatase 62 (38-126) U/L NT-Pro-B Natriuret Pep 39 (19.9-100) pg/mL Total Protein 7.9 (6.3-8.2) g/dL Albumin 4.5 (3.5-5.1) g/dL Influenza A (RT-PCR) Negative (Negative) Influenza B (RT-PCR) Negative (Negative) RSV (RT-PCR) Negative (Negative) SARS-CoV-2 RNA (RT-PCR) Negative (Negative) Imaging Data Radiologist's impression: CTA Head/Neck Stat Rad : No acute occlusion, severe stenosis, or aneurysm. No significant stenosis or dissection. ECG Data EKG #1: Attestation: I personally reviewed and interpreted this ECG as follows: ECG completion date: 01/11/25 ECG completion time: 21:40 Interpretation: Normal sinus rhythm at a rate of 75 beats per minute. NH interval 164. QRS 154. QT/QTC 436/488. RBBB given QRS greater [id number]; RSR' M-shaped pattern in V1-V3; wide, slurred S wave in lateral leads (I, aVL, V5-6). Slight T-wave flattening in 3 but upright in contiguous inferior leads. T-wave also inverted in V3 but possibly due to lead placement. Discharge Plan Discharge Clinical Impression: Hyperglycemia due to type 2 diabetes mellitus, Pseudohyponatremia, Bilateral headache, Lightheadedness, Balance problem, Thrombocytopenia, Tinnitus, Decreased hearing of left ear Patient Disposition: Home Condition: Stable Instructions: Antibiotic Form, Labyrinthitis (ED), Meniere Disease (ED), Hearing Loss (ED), Lightheadedness (ED), Diabetic Hyperglycemia (ED), Tinnitus (ED), General Headache (ED) Additional Instructions: Given your history of headaches and dizziness, I do recommend you follow-up with neurology as well as Otolaryngology (ENT, ear nose and throat), especially given your reported hearing loss and ringing in your ears/tinnitus. In the interim continue taking your medications as prescribed. Follow-up contact information for both specialists is listed below. Return to the emergency department any new or worsening symptoms. Patient Language: Swiss Prescriptions: No Action Breztri Aerosphere 160-9-4.8 mcg/actuation HFA aerosol inhaler 2 inh INHALATION BID losartan 100 mg tablet 100 mg PO DAILY cholestyramine (with sugar) [Questran] 4 gram powder in packet 4 g PO BID 30 Days Qty: 60 5RF Rx Instructions: administer w/meal; avoid other meds within 1hr before or 4-6hr after dose isosorbide mononitrate 60 mg tablet extended release 24 hr 120 mg PO DAILY carvedilol [Coreg] 12.5 mg Tablet 12.5 mg PO Q12HR Qty: 60 0RF nitroglycerin [Nitrostat] 0.4 mg Tablet, Sublingual 0.4 mg sublingual Q5MIN PRN (Reason: Chest Pain) Qty: 26 0RF omeprazole 40 mg capsule,delayed release(DR/EC) 40 mg PO DAILY Qty: 30 0RF tamsulosin 0.4 mg capsule 0.4 mg PO HS Qty: 30 0RF Jardiance 10 mg tablet 10 mg PO DAILY Qty: 30 0RF atorvastatin 80 mg tablet 80 mg PO DAILY Trulicity 3 mg/0.5 mL pen injector 3 mg SUBCUT WEEKLY Patient Comments: TAKES ON Tuesdays furosemide 40 mg tablet 40 mg PO DAILY clopidogrel 75 mg Tablet 75 mg PO QAM Qty: 30 0RF sacubitril-valsartan [Entresto] 24-26 mg Tablet 1 tab PO Q12HR Qty: 30 0RF doxazosin 2 mg tablet 2 mg PO HS bupropion HCl [Wellbutrin SR] 150 mg tablet sustained-release 12 hr 150 mg PO Q12H amlodipine 10 mg tablet 10 mg PO DAILY Patient Comments: take off hold, pt is taking currently metformin 1,000 mg tablet 1,000 mg PO BID alprazolam 0.25 mg tablet 0.25 mg PO HS Rx Instructions: at bedtime rivaroxaban [Xarelto] 2.5 mg tablet 2.5 mg PO Q12H acetaminophen 500 mg tablet 1,000 mg PO TID PRN (Reason: matt) 7 Days Qty: 42 0RF ranolazine 500 mg tablet extended release 12 hr 500 mg PO Q12H 30 Days Qty: 60 0RF benzonatate 100 mg capsule 100 mg PO BID PRN (Reason: cough) Qty: 20 0RF acetaminophen 500 mg capsule 1,000 mg PO Q6H PRN (Reason: pain) Qty: 30 0RF Follow-up/Referrals: Jason Vela MD [Physician, Ear, Nose, Throat] Brian Henning MD [Physician, Neurology] Angelina,JOVITA Junior [Primary Care Provider] Stand Alone Forms: Work/School Release IP Time of Disposition: 03:57
[2025-01-12] MEDS: ACETAMINOPHEN 500 MG TABLET 1000 MG PO (00:47)
[2025-01-12] MEDS: MECLIZINE HCL 25 MG TABLET PO (00:48)
[2025-01-12 01:25] LABS: NT Pro B Type Natriuretic Pept 39 pg/mL (19.9-100)
[2025-01-12 01:39] LABS: Influenza A QL RT-PCR Negative (Negative); Influenza B QL RT-PCR Negative (Negative); RSV RNA, RT-PCR Negative (Negative); SARS-CoV-2 RNA PCR Negative (Negative)
[2025-01-12] MEDS: SODIUM CHLORIDE 0.9% IV 500 ML 999 ML IV CONT (02:23)
[2025-01-12] MEDS: KETOROLAC 15 MG/ML VIAL (*BKC) IV PUSH (02:25)
[2025-01-12] MEDS: PROCHLORPERAZINE EDISYLATE 10 MG/2 ML VIAL 5 MG IV PUSH (02:27)
[2025-01-12] MEDS: diazePAM INJ (*CRX) 10 MG/2 ML SYRINGE 5 MG IV PUSH (02:28)
[2025-01-12 03:36] VITALS: BP 90/60; PULSE 64; RESP 20; O2SAT 96
--- NOTE | 2025-01-12 03:52 | PC.NURSE ---
pt walked full loop around nurses station. at end of walk he said just tired steady ambulation. sob noted o2sat 96% after walk. er aware.
== END 2025-01-12 04:28 | disposition home or self-care (01) ==
PROVIDERS: Physician Assistant; Emergency Provider Student in an Organized Health Care Education/Training Program; PCP Registered Nurse
DX: E11.65 Type 2 diabetes mellitus with hyperglycemia (principal); R42 Dizziness and giddiness; R51.9 Headache, unspecified; H93.12 Tinnitus, left ear; H91.92 Unspecified hearing loss, left ear; R26.81 Unsteadiness on feet; D69.6 Thrombocytopenia, unspecified; I25.10 Atherosclerotic heart disease of native coronary artery without angina pectoris; Z20.822 Contact with and (suspected) exposure to COVID-19; E11.42 Type 2 diabetes mellitus with diabetic polyneuropathy; E11.51 Type 2 diabetes mellitus with diabetic peripheral angiopathy without gangrene; I73.9 Peripheral vascular disease, unspecified; J44.9 Chronic obstructive pulmonary disease, unspecified; E78.5 Hyperlipidemia, unspecified; I25.2 Old myocardial infarction; I50.9 Heart failure, unspecified; K21.9 Gastro-esophageal reflux disease without esophagitis; L40.9 Psoriasis, unspecified; G47.33 Obstructive sleep apnea (adult) (pediatric); F32.A Depression, unspecified; Z95.5 Presence of coronary angioplasty implant and graft; Z87.01 Personal history of pneumonia (recurrent); Z87.442 Personal history of urinary calculi; Z86.718 Personal history of other venous thrombosis and embolism; Z86.0100 Personal history of colon polyps, unspecified; Z86.73 Personal history of transient ischemic attack (TIA), and cerebral infarction without residual deficits; Z86.16 Personal history of COVID-19; Z87.891 Personal history of nicotine dependence; Z90.49 Acquired absence of other specified parts of digestive tract; Z79.01 Long term (current) use of anticoagulants; Z79.02 Long term (current) use of antithrombotics/antiplatelets; Z79.84 Long term (current) use of oral hypoglycemic drugs; Z79.899 Other long term (current) drug therapy; I45.10 Unspecified right bundle-branch block
CPT/HCPCS: 36415; 70496; 70498; 71046; 80053; 83880; 85025; 85055; 87637; 93005; 96361; 96374; 96375; 99284; A9270; J0780; J1885; J3360; J7040; Q9967

== ENCOUNTER 2025-02-16 13:16 | Emergency (ER) | payer MEDICARE, MEDICAID, SELFPAY ==
--- OUTSIDE RECORDS SUMMARY | 2024-11-21 02:00 | XMS_ITS ---
Author Organization [facility] Address [address] [place], [place] [id number] Care Team Providers Care Pipeman Name Role Phone PIETER WALSH Unavailable [phone] Sandi Alfaro Unavailable Unavailable Allergies No Known Allergies REASON FOR VISIT Patient presents for at-risk foot care . The patient has painful toenails that are causing difficulty with ambulation and shoegear. The onset is gradual. The patient has diabetes mellitus Medications Medication SIG (Take, Route, Frequency, Duration) Notes Start Date End Date Status Xarelto Active Plavix Active betamethasone 0.5 MG/ML / clotrimazole 10 MG/ML Topical Cream [Lotrisone] CUTANEOUS betamethasone 0.5 MG/ML / clotrimazole 10 MG/ML Topical Cream [Lotrisone]Original Medicationbetamethasone 0.5 MG/ML / clotrimazole 10 MG/ML Topical Cream [Lotrisone] *Reorder from [employer] for eRx and Interacti 7 Active clobetasol propionate 0.0005 MG/MG Topical Ointment [Temovate] CUTANEOUS clobetasol propionate 0.0005 MG/MG Topical Ointment [Temovate]Original Medicationclobetasol propionate 0.0005 MG/MG Topical Ointment [Temovate] *Reorder from [employer] for eRx and Interaction Alerts* 7 Active clotrimazole 10 MG/ML Topical Cream CUTANEOUS clotrimazole 10 MG/ML Topical CreamOriginal Medicationclotrimazole 10 MG/ML Topical Cream *Reorder from [employer] for eRx and Interaction Alerts* 7 Active Augmented betamethasone 0.5 MG/ML Topical Cream CUTANEOUS Augmented betamethasone 0.5 MG/ML Topical CreamOriginal MedicationAugmented betamethasone 0.5 MG/ML Topical Cream *Reorder from [employer] for eRx and Interaction Alerts* 7 Active betamethasone 0.5 MG/ML / clotrimazole 10 MG/ML Topical Cream CUTANEOUS betamethasone 0.5 MG/ML / clotrimazole 10 MG/ML Topical CreamOriginal Medicationbetamethasone 0.5 MG/ML / clotrimazole 10 MG/ML Topical Cream *Reorder from [employer] for eRx and Interaction Alerts* 7 Active Social History Social History Additional Details Category Social Info Options Details Migrated Social History Migrated Social History History of tobacco use : Current every day smoker , Smoking Status : Current every day smoker Vital Signs Height 72.00 in 11/21/2024 Weight 330 lbs 11/21/2024 BMI 44.75 kg/m2 11/21/2024 Height-cm 182.88 cm 11/21/2024 Weight-kg 149.69 kg 11/21/2024 Encounters Encounter Location Date Provider Diagnosis [facility] [address] [place] [id number] 11/21/2024 PIETERKELLEY WALSH Tinea unguium B35.1 ; Pain in right toe(s) M79.674 ; Pain in left toe(s) M79.675 ; Atherosclerosis of [place] arteries of extremities with intermittent claudication, bilateral legs I70.213 and Type 2 diabetes mellitus with other circulatory complications E11.59 Assessments Encounter Date Diagnosis (ICD Code) Assessment Notes Treatment Notes Treatment Clinical Notes Section Notes 11/21/2024 Tinea unguium (ICD-10 - B35.1) NAIL DEBRIDEMENT: Nails 1-5 Bilateral were debrided extensively with nail nippers and emery board, reducing length and girth to pink healthy tissue with any subungual debris and necrotic tissue removed 11/21/2024 Pain in right toe(s) (ICD-10 - M79.674) 11/21/2024 Pain in left toe(s) (ICD-10 - M79.675) 11/21/2024 Atherosclerosis of [place] arteries of extremities with intermittent claudication, bilateral legs (ICD-10 - I70.213) 11/21/2024 Type 2 diabetes mellitus with other circulatory [...] sooner if problems develop. Provider Name:PIETER WALSH, 10:00:00 AM, [address], [place], [place], [id number], History and Physical Notes * HPI (History [...] Date last seen by Dr. Alfaro was September 2024., Initials ab Examination Category Sub-Category Detail Notes Category Not [...] inversion, and eversion in bilateral lower extremities Progress Notes * KLAUDIA HALEY BDOB:[birth year] (64 yo M)Acc No.[id number]:11/21/2024 Patient: KLAUDIA DUONG Provider: Kristal Walsh DPM :1960 A ge:64 Y S ex:Male Date:11/21/2024 Address:[address] [place] [address] , [id number] Subjective: * Chief Complaints: * Mundo gonzales [...] Date last seen by Dr. Alfaro was September 2024., Initials ab. * Medical History: Diabetic Medical History Verified * Surgical History: No Surgical History documented. Surgical History verified. * Hospitalization/Major Diagno stic Procedure: No Hospitalization Documented. Hospitalization Verified. * Family History: F ather: PRN - Father: :: Hypertension,,known absent , :: Congestive heart failure,,known absent , :: Heart Disease < 55 yrs,,known absent . M other: PRN - Mother: :: Arthritis,,known absent , :: Hypertension,,known absent , :: Diabetes,,known absent . S ister: SIB - Sister: :: Heart Disease < 55 yrs,,known absent . F amily History Verified.. * Social History: M igrated Social History: M igrated Social History: History of tobacco use : Current every day smoker , Smoking Status : Current every day smoker. Social History Verified. * Medications: T akingPlavix Xarelto Augmented betamethasone 0.5 MG/ML Topical Cream CUTANEOUS , Notes to Pharmacist: Augmented betamethasone 0.5 MG/ML Topical CreamOriginal MedicationAugmented betamethasone 0.5 MG/ML Topical Cream *Reorder from [facility] for eRx and Interaction Alerts*betamethasone 0.5 MG/ML / clotrimazole 10 MG/ML Topical Cream CUTANEOUS , Notes to Pharmacist: betamethasone 0.5 MG/ML / clotrimazole 10 MG/ML Topical CreamOriginal Medicationbetamethasone 0.5 MG/ML / clotrimazole 10 MG/ML Topical Cream *Reorder from [facility] for eRx and Interaction Alerts*betamethasone 0.5 MG/ML / clotrimazole 10 MG/ML Topical Cream [Lotrisone] CUTANEOUS , Notes to Pharmacist: betamethasone 0.5 MG/ML / clotrimazole 10 MG/ML Topical Cream [Lotrisone]Original Medicationbetamethasone 0.5 MG/ML / clotrimazole 10 MG/ML Topical Cream [Lotrisone] *Reorder from [facility] for eRx and Interacticlobetasol propionate 0.0005 MG/MG Topical Ointment [Temovate] CUTANEOUS , Notes to Pharmacist: clobetasol propionate 0.0005 MG/MG Topical Ointment [Temovate]Original Medicationclobetasol propionate 0.0005 MG/MG Topical Ointment [Temovate] *Reorder from [facility] for eRx and Interaction Alerts*clotrimazole 10 MG/ML Topical Cream CUTANEOUS , Notes to Pharmacist: clotrimazole 10 MG/ML Topical CreamOriginal Medicationclotrimazole 10 MG/ML Topical Cream *Reorder from [facility] for eRx and Interaction Alerts*Medication List reviewed and reconciled with the patientTaking Plavix Taking Xarelto Taking Augmented betamethasone 0.5 MG/ML Topical Cream CUTANEOUS , Notes to Pharmacist: Augmented betamethasone 0.5 MG/ML Topical CreamOriginal MedicationAugmented betamethasone 0.5 MG/ML Topical Cream *Reorder from [facility] for eRx and Interaction Alerts*Taking betamethasone 0.5 MG/ML / clotrimazole 10 MG/ML Topical Cream CUTANEOUS , Notes to Pharmacist: betamethasone 0.5 MG/ML / clotrimazole 10 MG/ML Topical CreamOriginal Medicationbetamethasone 0.5 MG/ML / clotrimazole 10 MG/ML Topical Cream *Reorder from [facility] for eRx and Interaction Alerts*Taking betamethasone 0.5 MG/ML / clotrimazole 10 MG/ML Topical Cream [Lotrisone] CUTANEOUS , Notes to Pharmacist: betamethasone 0.5 MG/ML / clotrimazole 10 MG/ML Topical Cream [Lotrisone]Original Medicationbetamethasone 0.5 MG/ML / clotrimazole 10 MG/ML Topical Cream [Lotrisone] *Reorder from [facility] for eRx and InteractiTaking clobetasol propionate 0.0005 MG/MG Topical Ointment [Temovate] CUTANEOUS , Notes to Pharmacist: clobetasol propionate 0.0005 MG/MG Topical Ointment [Temovate]Original Medicationclobetasol propionate 0.0005 MG/MG Topical Ointment [Temovate] *Reorder from [facility] for eRx and Interaction Alerts*Taking clotrimazole 10 MG/ML Topical Cream CUTANEOUS , Notes to Pharmacist: clotrimazole 10 MG/ML Topical CreamOriginal Medicationclotrimazole 10 MG/ML Topical Cream *Reorder from [facility] for eRx and Interaction Alerts*Medication List reviewed and reconciled with the patient * Allergies: N .K.D.A.yesAllergies Verified. Objective: * Vitals: W t:330lbs, Wt-k.69 kg, [...] - M79.675 4 . A therosclerosis of [place] arteries of extremities with intermittent claudication, bilateral [...] all risk screening F all Risk Assessment: T wo or more falls without injury in the past year, P cristhian of Care: D ocumented, T ype of fall plan of care: Balance, strength and gait training or instruction provided, H ave you had two or more falls in the past year? Y es, H ave you had any falls with injury in the past year? N o.? * Follow Up: 1 0 - 12 weeks (Reason: At-Risk Foot care, sooner if problems develop.) Billing Information: * Procedure Codes: 35536 DEBRIDE NAIL, 6 OR MORE. Modifiers: Q8 * Electronic signature of PIETER WALSH DPM on 02/16/2025 at 02:13 PM COOK 3 PASTRY Sign off status: Pending * Provider: Kristal Walsh DPM Date: 0 11/21/2024 Generated for Michelle chi/Danielle/Jeremyitting on: 1 04/19/2024 02:13 PM COOK 3 PASTRY
--- OUTSIDE RECORDS SUMMARY | 2025-01-23 05:10 | XMS_ITS ---
Author Organization [facility] Address [address] [place], [place] [id number] Care Team Providers Care Branch Mechanic Name Role Phone PIETER WALSH Unavailable [phone] Sandi Alfaro Unavailable Unavailable Allergies No Known [...] 0.0005 MG/MG Topical Ointment [Temovate] *Reorder from [employer] for eRx and Interaction Alerts* 7 Active clotrimazole 10 MG/ML Topical Cream CUTANEOUS clotrimazole 10 MG/ML Topical CreamOriginal Medicationclotrimazole 10 MG/ML Topical Cream *Reorder from [employer] for eRx and Interaction Alerts* 7 Active betamethasone 0.5 MG/ML / clotrimazole 10 MG/ML Topical Cream CUTANEOUS betamethasone 0.5 MG/ML / clotrimazole 10 MG/ML Topical CreamOriginal Medicationbetamethasone 0.5 MG/ML / clotrimazole 10 MG/ML Topical Cream *Reorder from [employer] for eRx and Interaction Alerts* 7 Active betamethasone 0.5 MG/ML / clotrimazole 10 MG/ML Topical Cream [Lotrisone] CUTANEOUS betamethasone 0.5 MG/ML / clotrimazole 10 MG/ML Topical Cream [Lotrisone]Original Medicationbetamethasone 0.5 MG/ML / clotrimazole 10 MG/ML Topical Cream [Lotrisone] *Reorder from [employer] for eRx and Interacti 7 Active Plavix Active Augmented betamethasone 0.5 MG/ML Topical Cream CUTANEOUS Augmented betamethasone 0.5 MG/ML Topical CreamOriginal MedicationAugmented betamethasone 0.5 MG/ML Topical Cream *Reorder from [employer] for eRx and Interaction Alerts* 7 Active Xarelto Active Social History Social History Additional Details Category Social Info Options Details Migrated Social History Migrated Social History History of tobacco use : Current every day smoker , Smoking Status : Current every day smoker Vital Signs Height 72.00 in 01/23/2025 Weight 330 lbs 01/23/2025 BMI 44.75 kg/m2 01/23/2025 Height-cm 182.88 cm 01/23/2025 Weight-kg 149.69 kg 01/23/2025 Encounters Encounter Location Date Provider Diagnosis [facility] [place] [address] [place] [id number] 01/23/2025 PIETER WALSH Tinea unguium B35.1 ; Pain in right toe(s) M79.674 ; Pain in left toe(s) M79.675 ; Atherosclerosis of kaibab arteries of extremities with intermittent claudication, bilateral legs I70.213 and Type 2 diabetes mellitus with other circulatory complications E11.59 Assessments Encounter Date Diagnosis (ICD Code) Assessment Notes Treatment Notes Treatment Clinical Notes Section Notes 01/23/2025 Tinea unguium (ICD-10 - B35.1) NAIL DEBRIDEMENT: Nails 1-5 Bilateral were debrided extensively with nail nippers and emery board, reducing length and girth to pink healthy tissue with any subungual debris and necrotic tissue removed 01/23/2025 Pain in right toe(s) (ICD-10 - M79.674) 01/23/2025 Pain in left toe(s) (ICD-10 - M79.675) 01/23/2025 Atherosclerosis of kaibab arteries of extremities with intermittent claudication, bilateral legs (ICD-10 - I70.213) 01/23/2025 Type 2 diabetes mellitus with other circulatory [...] care, sooner if problems develop. Provider Name:PIETER JILLIAN, 10:00:00 AM, [address] [facility], [address], [place], [place], [id number], History and Physical Notes * HPI (History [...] Date last seen by Dr. Alfaro was 11/2024., Initials nd Examination Category Sub-Category Detail Notes Category Not [...] KLAUDIA HALEY BDOB:[birth year] (64 yo M)Acc No.[id number]:01/23/2025 Patient: KLAUDIA DUONG Provider: Kristal Walsh DPM :1960 A ge:64 Y S ex:Male Date:01/23/2025 Address:[address] [place] [address] , [id number] Subjective: * Chief Complaints: * Mundo gonzales [...] Date last seen by Dr. Alfaro was 11/2024., Initials nd. * ROS: G eneral / Constitutional: Patient denies c hills, fever, weakness, night sweats. M usculoskeletal: Patient denies c hildhood foot problems, weakness. P janet complains of b roken foot bone. P eripheral Vascular: Patient denies u lceration of feet, cold extremities. ? S kin: Patient denies u lcerations, discoloration. ? N eurologic: Patient denies b alance difficulty, confusion, difficulty speaking, dizziness. * Medical History: Diabetic Medical History Verified * Surgical History: Denies Past Surgical History. Surgical History verified. * Hospitalization/Major Diagno stic Procedure: Denies Past Hospitalization. Hospitalization Verified. * Family History: F ather: [...] betamethasone 0.5 MG/ML Topical Cream *Reorder from [employer] for eRx and Interaction Alerts*betamethasone 0.5 MG/ML / clotrimazole 10 MG/ML Topical Cream CUTANEOUS , Notes to Pharmacist: betamethasone 0.5 MG/ML / clotrimazole 10 MG/ML Topical CreamOriginal Medicationbetamethasone 0.5 MG/ML / clotrimazole 10 MG/ML Topical Cream *Reorder from [employer] for eRx and Interaction Alerts*betamethasone 0.5 MG/ML / clotrimazole 10 MG/ML Topical Cream [Lotrisone] CUTANEOUS , Notes to Pharmacist: betamethasone 0.5 MG/ML / clotrimazole 10 MG/ML Topical Cream [Lotrisone]Original Medicationbetamethasone 0.5 MG/ML / clotrimazole 10 MG/ML Topical Cream [Lotrisone] *Reorder from [employer] for eRx and Interacticlobetasol propionate 0.0005 MG/MG Topical Ointment [Temovate] CUTANEOUS , Notes to Pharmacist: clobetasol propionate 0.0005 MG/MG Topical Ointment [Temovate]Original Medicationclobetasol propionate 0.0005 MG/MG Topical Ointment [Temovate] *Reorder from [employer] for eRx and Interaction Alerts*clotrimazole 10 MG/ML Topical Cream CUTANEOUS , Notes to Pharmacist: clotrimazole 10 MG/ML Topical CreamOriginal Medicationclotrimazole 10 MG/ML Topical Cream *Reorder from [employer] for eRx and Interaction Alerts*Medication List reviewed and reconciled with the patientTaking Plavix Taking Xarelto Taking Augmented betamethasone 0.5 MG/ML Topical Cream CUTANEOUS , Notes to Pharmacist: Augmented betamethasone 0.5 MG/ML Topical CreamOriginal MedicationAugmented betamethasone 0.5 MG/ML Topical Cream *Reorder from [facility] for eRx and Interaction Alerts*Taking betamethasone 0.5 MG/ML / clotrimazole 10 MG/ML Topical Cream CUTANEOUS , Notes to Pharmacist: betamethasone 0.5 MG/ML / clotrimazole 10 MG/ML Topical CreamOriginal Medicationbetamethasone 0.5 MG/ML / clotrimazole 10 MG/ML Topical Cream *Reorder from [facility] for eRx and Interaction Alerts*Taking betamethasone 0.5 MG/ML / clotrimazole 10 MG/ML Topical Cream [Lotrisone] CUTANEOUS , Notes to Pharmacist: betamethasone 0.5 MG/ML / clotrimazole 10 MG/ML Topical Cream [Lotrisone]Original Medicationbetamethasone 0.5 MG/ML / clotrimazole 10 MG/ML Topical Cream [Lotrisone] *[facility] for eRx and InteractiTaking clobetasol propionate 0.0005 MG/MG Topical Ointment [Temovate] CUTANEOUS , Notes to Pharmacist: clobetasol propionate 0.0005 MG/MG Topical Ointment [Temovate]Original Medicationclobetasol propionate 0.0005 MG/MG Topical Ointment [Temovate] *Reorder from [facility] for eRx and Interaction Alerts*Taking clotrimazole 10 MG/ML Topical Cream CUTANEOUS , Notes to Pharmacist: clotrimazole 10 MG/ML Topical CreamOriginal Medicationclotrimazole 10 MG/ML Topical Cream *Reorder from [facility] for eRx and Interaction Alerts*Medication [...] problems develop.) Billing Information: * Procedure Codes: 82656 DEBRIDE NAIL, 6 OR MORE. Modifiers: Q8 * Electronic signature of PIETER WALSH DPM on 02/16/2025 at 02:14 PM READY MIX TRUCK DRIVER Sign off status: Pending * Provider: Kristal Walsh DPM Date: 03/25/2024 Generated for Michelle chi/Danielle/Jeremyitting on: 04/19/2024 02:14 PM READY MIX TRUCK DRIVER
--- NOTE | ~2025-02-16 | XR_ITS ---
EXAMINATION: XR chest 2V, 02/16/2025 14:42 COIN MACHINE COLLECTOR HISTORY: chest pain COMPARISON: No comparisons available. Technique: 2 views obtained. Findings: Minimal basilar infiltrates. No pneumothorax. Heart is normal size. Mediastinal and hilar contours are within normal limits. Bony thorax no acute abnormality. Impression: Early bilateral pneumonia Reviewed, dictated and finalized at location P. MACHINE COLLECTOR Impression: Early bilateral pneumonia
--- NOTE | 2025-02-16 13:19 | ECG_ITS ---
Test Date: 2025-02-16 13:25:18 Measurements Intervals [place] Rate: 84 P: 53 IN: 168 QRS: 19 QRSD: 154 T: 21 QT: 419 QTc: 497 Interpretive Statements SINUS RHYTHM WITH OCCASIONAL VENTRICULAR PREMATURE COMPLEXES RIGHT BUNDLE BRANCH BLOCK INFERIOR INFARCT, AGE INDETERMINATE ABNORMAL ECG Compared to ECG 01/11/2025 21:40:40 Ventricular premature complex(es) now present Electronically Signed On 02-16-2025 13:32:11 DEPUTY CONTROLLER by Mathew Landon D.O.
[2025-02-16 13:23] VITALS: BP 167/100; PULSE 85; RESP 16; TEMP 36.7; O2SAT 100
[2025-02-16 13:43] LABS: Hematocrit 42.8 % (42.0-52.0); Hemoglobin 15.0 g/dL (14.0-18.0); Immature Granulocyte Percent A 0.3 % (0-0.5); Immature Platelet Fraction Pct 4.5 % (0.9-11.2); Lymphocytes Absolute Auto 0.83 K/mm3 (0.9-3.2); Mean Corpuscular HGB Conc 35.0 g/dl (32-36); Mean Corpuscular Hemoglobin 31.6 pg (26-34); Mean Corpuscular Volume 90.3 fl (80-100); Nucleated Red Blood Cells Absolute Auto 0.000 K/mm3 (0.0-0.012); Nucleated Red Blood Cells Perc 0.0 % (0.0-0.2); Platelet Count Result 116 k/mm3 (150-375); Red Blood Count 4.74 M/mm3 (4.6-6.20); White Blood Count 5.7 K/mm3 (4.5-10.0)
[2025-02-16 13:52] LABS: INR 1.0; Prothrombin Time 13.7 Seconds (11.1-14.7)
[2025-02-16 13:53] LABS: Partial Thromboplastin Time 30.3 Seconds (22.3-36.8)
[2025-02-16 13:57] LABS: Alanine Aminotransferase 59 U/L (6-50); Albumin Level 4.2 g/dL (3.5-5.1); Alkaline Phosphatase 79 U/L (38-126); Anion Gap 11 mmol/L (4-12); Aspartate Amino Transferase 40 U/L (17-59); Bilirubin,Total 0.6 mg/dL (0.2-1.3); Blood Urea Nitrogen 17 mg/dL (9-20); Calcium 9.0 mg/dL (8.4-10.2); Carbon Dioxide 18 mmol/L (22-30); Chloride 109 mmol/L (98-107); Estimated CRCL calculation 91 ml/min; Estimated Glomerular Filt Rate > 60; Glucose 281 mg/dL (65-110); Lipase 144 U/L (23-300); Potassium 3.8 mmol/L (3.4-5.0); Sodium 138 mmol/L (137-145); Total Protein 7.7 g/dL (6.3-8.2)
[2025-02-16 14:04] LABS: Troponin I < 0.012 ng/mL (0.000-0.034)
--- OUTSIDE RECORDS SUMMARY | 2025-02-16 14:13 | XMS_ITS | Patient Health Record ---
Author Organization [facility] Address [address] [place], [place] [address] Care Team Providers Care Skin Lifter Bacon Name Role Phone PIETER WALSH Unavailable [phone] Sandi Alfaro Unavailable Unavailable Allergies No Known Allergies Reason For Referral No Information Medications Medication SIG (Take, Route, Frequency, Duration) Notes Start Date End Date Status clobetasol propionate 0.0005 MG/MG Topical Ointment [Temovate] CUTANEOUS clobetasol propionate 0.0005 MG/MG Topical Ointment [Temovate]Original Medicationclobetasol propionate 0.0005 MG/MG Topical Ointment [Temovate] *Reorder from [employer] for eRx and Interaction Alerts* 7 Active clotrimazole 10 MG/ML Topical Cream CUTANEOUS clotrimazole 10 MG/ML Topical CreamOriginal Medicationclotrimazole 10 MG/ML Topical Cream *Reorder from [employer] for eRx and Interaction Alerts* 7 Active Augmented betamethasone 0.5 MG/ML Topical Cream CUTANEOUS Augmented betamethasone 0.5 MG/ML Topical CreamOriginal MedicationAugmented betamethasone 0.5 MG/ML Topical Cream *Reorder from [employer] for eRx and Interaction Alerts* 7 Active betamethasone 0.5 MG/ML / clotrimazole 10 MG/ML Topical Cream CUTANEOUS betamethasone 0.5 MG/ML / clotrimazole 10 MG/ML Topical CreamOriginal Medicationbetamethasone 0.5 MG/ML / clotrimazole 10 MG/ML Topical Cream *Reorder from [employer] for eRx and Interaction Alerts* 7 Active betamethasone 0.5 MG/ML / clotrimazole 10 MG/ML Topical Cream [Lotrisone] CUTANEOUS betamethasone 0.5 MG/ML / clotrimazole 10 MG/ML Topical Cream [Lotrisone]Original Medicationbetamethasone 0.5 MG/ML / clotrimazole 10 MG/ML Topical Cream [Lotrisone] *Reorder from [employer] for eRx and Interacti 7 Active Plavix Active Xarelto Active Immunizations Vaccine Route Administration Date Status [...] Unknown 02/26/2016 Administered Tdap Unknown 02/26/2016 Administered Social History Social History Additional Details Category Social Info Options Details Migrated Social History Migrated Social History History of tobacco use : Current every day smoker , Smoking Status : Current every day smoker Vital Signs Height-cm 182.88 cm 01/23/2025 Weight-kg 149.69 kg 01/23/2025 Height 72.00 in 01/23/2025 Weight 330 lbs 01/23/2025 BMI 44.75 kg/m2 01/23/2025 Encounters Encounter Location Date Provider Diagnosis [facility] [place] [address] [place] [id number] 11/21/2024 PIETER SNOOK Tinea unguium B35.1 ; Pain in right toe(s) M79.674 ; Pain in left toe(s) M79.675 ; 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, bilateral legs I70.213 and Type 2 diabetes mellitus with other circulatory complications E11.59 [facility] [place] [address] [place] [id number] 01/23/2025 PIETER SNOOK Tinea unguium B35.1 ; Pain in right toe(s) M79.674 ; Pain in left toe(s) M79.675 ; 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, bilateral legs I70.213 and Type 2 diabetes mellitus with other circulatory complications E11.59 [facility] [place] [address] [place] [address] [id number] 03/28/2024 PIETER SNOOK Tinea unguium B35.1 ; Pain in right toe(s) M79.674 ; Pain in left toe(s) M79.675 ; 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, bilateral legs I70.213 and Type 2 diabetes mellitus with other circulatory complications E11.59 [facility] [place] [address] [place] [address] [id number] 06/27/2024 PIETER SNOOK Tinea unguium B35.1 ; Pain in right toe(s) M79.674 ; Pain in left toe(s) M79.675 ; 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, bilateral legs I70.213 and Type 2 diabetes mellitus with other circulatory complications E11.59 [facility] [place] [address] [place] [address] [id number] 09/19/2024 PIETER SNOOK Tinea unguium B35.1 ; Pain in right toe(s) M79.674 ; Pain in left toe(s) M79.675 ; 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, bilateral [...] subungual debris and necrotic tissue removed 01/23/2025 Tinea unguium (ICD-10 - B35.1) NAIL DEBRIDEMENT: Nails 1-5 Bilateral were debrided extensively with nail nippers and emery board, reducing length and girth to pink healthy tissue with any subungual debris and necrotic tissue removed 01/23/2025 Pain in right toe(s) (ICD-10 - M79.674) 11/21/2024 Pain in right toe(s) (ICD-10 - M79.674) 09/19/2024 Pain in right toe(s) (ICD-10 - M79.674) 06/27/2024 Pain in right toe(s) (ICD-10 - M79.674) 03/28/2024 Pain in left toe(s) (ICD-10 - M79.675) 03/28/2024 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, bilateral legs (ICD-10 - I70.213) 06/27/2024 Pain in left toe(s) (ICD-10 - M79.675) 09/19/2024 Pain in left toe(s) (ICD-10 - M79.675) 11/21/2024 Pain in left toe(s) (ICD-10 - M79.675) 01/23/2025 Pain in left toe(s) (ICD-10 - M79.675) 11/21/2024 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, bilateral legs (ICD-10 - I70.213) 01/23/2025 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, bilateral legs (ICD-10 - I70.213) 06/27/2024 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, bilateral legs (ICD-10 - I70.213) 09/19/2024 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, bilateral [...] as well as the Amputation Prevention Guide. 01/23/2025 Type 2 diabetes mellitus with other [...] Treatment Next Appt Details Provider Name:PIETER WALSH, 10:00:00 AM, [address] [facility], [address], [place], [place], [phone], Insurance Providers Payer Name Payer Address Payer Phone Subscriber Number Group Number Insured Name Patient Relationship to Insured Coverage Start Date Coverage End Date Medicare Part B [facility] [address] [place] [phone] [id number] KLAUDIA HALEY Self - patient is the insured Medical (General) History Medical History History ICD Code Diabetic
--- OUTSIDE RECORDS SUMMARY | 2025-02-16 14:13 | XMS_ITS | Clinical Summary ---
Author Organization [facility] [address] Address [address] [place] [address] Care Team Providers Care Block Handler Name Role Phone Sandi Alfaro Primary [...] pain 75 tablet 3 02/14/20 23 Active omeprazole (PriLOSEC) 40 mg capsule 10/19/19 24 Active meclizine (ANTIVERT) 25 mg tablet [...] 90 tablet 2 07/02/19 25 026 Active rivaroxaban (Xarelto) 2.5 mg tablet Take 1 tablet (2.5 mg total) by mouth 2 (two) times a day 180 tablet 3 10/20/19 25 Active furosemide (LASIX) 40 mg tablet TAKE 1 TABLET BY MOUTH EVERY DAY 90 tablet 2 01/17/20 25 Active atorvastatin (LIPITOR) 80 mg tablet Take 1 tablet (80 mg total) by mouth daily 90 tablet 1 02/03/20 25 Active isosorbide mononitrate ER (IMDUR) 60 mg 24 hr tabletIndicatio ns: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 TAKE 2 TABLETS BY MOUTH EVERY DAY 180 tablet 1 02/15/20 25 Active atorvastatin (LIPITOR) 80 mg tablet TAKE 1 TABLET BY MOUTH EVERY DAY 90 tablet 1 01/25/20 24 025 Discontinued(Re order) isosorbide mononitrate ER (IMDUR) 60 mg 24 hr tabletIndicatio ns: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 Dx; Cryptogenic Stroke. DOI 10/12/[address] Willoughby. [employer] remote monitoring. 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 02/20/2015 Overview (06/07/2016): Coronary artery disease involving crow coronary artery of crow heart with other form of angina pectoris CVA, old, hemiparesis 02/20/2015 Overview (06/07/2016): CVA, old, hemiparesis Mixed diabetic hyperlipidemi a associated with type 2 diabetes mellitus ([facility]) 02/20/2015 Overview (06/07/2016): DM type 2 with diabetic dyslipidemia Hypertensive heart disease with congestive heart failure 02/20/2015 Overview (06/07/2016): Hypertensive heart disease with diastolic heart failure TAMIR on CPAP 10/17/2014 Overview (06/07/2016): TAMIR on CPAP Diabetes mellitus 10/17/2014 Overview (06/07/2016): DM (diabetes mellitus) Hypertension associated with diabetes 10/17/2014 Overview (06/07/2016): HTN (hypertension), benign Encounters Date Type Department Care Team Description 02/02/2025 Telephone [facility] Cardiology [address] [place] [address] Fernando Modi MD Med Refill from Last 3 Months Surgical History Surgery Date Site/Laterality Comments CHOLECYSTECTOMY Medical History Medical History Date Comments Hypertension Coronary artery disease GERD (gastroesophageal reflux disease) Arthritis Diabetes mellitus Heart disease Stroke (HCC) Anxiety Sleep apnea [...] on file Legal Sex Male 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
--- OUTSIDE RECORDS SUMMARY | 2025-02-16 14:14 | XMS_ITS | Encounter Summary ---
Author Organization [facility] Healthcare Address [address] [place] [address] Care Team Providers Care Custom Designer Name Role Phone Salo Forrest MD Primary Care Provider +- [phone] Sandi Alfaro Primary Care Provider + Encounter Details Date Type Department Care Team (Late st Contact Info) Description 08/03/[address] [facility] Health Information Management [address] [place] [id number] Scanning, Provider Social History Tobacco Use Types Packs/Day Years Used Date Smoking Tobacco: Former Smokeless Tobacco: Never Alcohol Use Standard Drinks/Week Comments Yes 0 (1 standard drink = 0.6 oz pur e alcohol) Sex and Gender Information Value Date Recorded Sex Assigned at Not on file Legal Sex Male 3:15 AM VIDEO COORDINATOR Gender Identity Male 09/03/2018 6:22 AM CDT [...] on filedocumented in this encounter Care Teams Custom Designer Relationship Specialty Start Date End Date Salo Forrest MD [address] [place] [address] PCP - General 3/31/17 6/21/18 Sandi Alfaro PA [address] [place] [address] PCP - General Nurse Practitioner 08/21/17 documented as of this encounter
--- OUTSIDE RECORDS SUMMARY | 2025-02-16 14:14 | XMS_ITS | Encounter Summary ---
Author Organization [facility] Healthcare Address [address] [place] [address] Care Team Providers Care Handy Worker Name Role Phone Salo Forrest MD Primary Care Provider +- [phone] Sandi Alfaro Primary Care Provider + Encounter Details Date Type Department Care Team (Late st Contact Info) Description 05/11/2017 Orders Only [facility] Health Information Management [address] [place] [address] Scanning, Provider Social History Tobacco Use Types Packs/Day Years Used Date Smoking Tobacco: Former Smokeless Tobacco: Never Alcohol Use Standard Drinks/Week Comments Yes 0 (1 standard drink = 0.6 oz pur e alcohol) Sex and Gender Information Value Date Recorded Sex Assigned at Not on file Legal Sex Male 3:15 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
--- OUTSIDE RECORDS SUMMARY | 2025-02-16 14:14 | XMS_ITS | Clinical Summary ---
Author Organization [facility] [employer] Address [address] [place] [address] Care Team Providers Care Marine Electrician Apprentice Name Role Phone Sandi Alfaro BOOM PUMP OPERATOR-ASIC DESIGN ENGINEER Primary Care Provider Source Comments [facility] [employer],non-owned Affiliates and Associated Physician Practices is amultiple site organization consisting of ambulatory clinics and hospital sitesin [place], [place], [place] and [place]. This disclosure is being madepursuant to the Care Everywhere program and may not contain all information available regarding this patient. 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 Co de Phone Number [address] [phone] * HEPATITIS C AB SCREEN RFLX NAAT [...] Fi nal Result Performing Organization Address City/[facility]/ZIP Co de Phone Number [address] [address], [place] [phone] from Last 3 Months or Most Recently Relevant to Health Maintenance Insurance MEDICARE MEDICAID - OUT OF STATE MEDICARE MEDICAID - [place] Advance Directives * Full Code (Latest Code Status on File) Date Activated Date Inactivated Comments 05/26/2018 2:01 PM 05/28/2018 11:56 AM Care Teams Marine Electrician Apprentice Relationship Specialty Start Date End Date Sandi Alfaro APRN-ASIC DESIGN ENGINEER [address] [place] [id number] PCP - General 08/27/21
--- OUTSIDE RECORDS SUMMARY | 2025-02-16 14:14 | XMS_ITS | Encounter Summary ---
Author Organization [facility] Healthcare Address [address] [place] [address] Care Team Providers Care Due Diligence Coordinator Name Role Phone Sandi Alfaro Primary Care Provider + Encounter Details Date Type Department Care Team (Late st Contact Info) Description 07/20/2024 Orders Only [facility] Health Information Management [address] [place] [id number] Scanning, Provider Social History Tobacco Use Types Packs/Day Years Used Date Smoking Tobacco: Some Days Cigarettes 0.3 15 Smokeless Tobacco: Never Alcohol Use Standard Drinks/Week Comments Yes 0 (1 standard drink = 0.6 oz pur e alcohol) Sex and Gender Information Value Date Recorded Sex Assigned at Not on file Legal Sex Male 3:15 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
--- NOTE | 2025-02-16 15:15 | ED_ITS ---
HPI - Chest Pain General Chief Complaint: Chest Pain <Alexandra Saleem PA-C - Last Filed: 02/16/25 17:48> Stated Complaint: chest pain <Alexandra Saleem PA-C - Last Filed: 02/16/25 17:48> Time Seen by Provider: 02/16/25 15:15 <Alexandra Saleem PA-C - Last Filed: 02/16/25 17:48> Focused HPI: This is a 64 year old male that presents to the ER for exertional chest pain. Ongoing since earlier this morning. He did initially have relief earlier this morning with nitro. Also report some shortness of breath, nausea. Reports a cough. Denies fevers. GENERAL: Well-appearing, well-nourished, and in no acute distress. HEAD: Normocephalic, atraumatic. CHEST: Clear to auscultation. ?No respiratory distress. HEART: Regular rate and rhythm.? NEURO: ?Alert and oriented x3. Patient screened in triage and initial orders placed.? ?Additional care and disposition to be based upon?diagnostic testing and treatment. <Alexandra Saleem PA-C - Last Filed: 02/16/25 17:48> History of Present Illness HPI narrative: per HPI <Dory Khan MD - Last Filed: 02/16/25 17:47> Related Data Home Medications: Home Medications ?Medication ?Instructions ?Recorded ?Confirmed ?Last Taken ?Type amlodipine 10 mg tablet 10 mg PO DAILY 01/24/1911/0110/16/24 History bupropion HCl 150 mg tablet,12 hr 150 mg PO Q12H 01/2411/24/24 10/16/24 History sustained-release (Wellbutrin SR) metformin 1,000 mg tablet 1,000 mg PO BID 01/24/1910/16/24 History isosorbide mononitrate 60 mg 120 mg PO DAILY 01/09/20 11/24/24 10/16/24 History tablet,extended release 24 hr alprazolam 0.25 mg tablet 0.25 mg PO HS 08/21/2111/2410/15/24 History atorvastatin 80 mg tablet 80 mg PO DAILY 06/13/2411/0110/16/24 History dulaglutide 3 mg/0.5 mL 3 mg subcut WEEKLY 06/13/24 11/24/24 10/11/24 History subcutaneous pen injector (Trulicity) furosemide 40 mg tablet 40 mg PO DAILY 06/13/24 09/07/2410/09/24 History budesonide 160 mcg-glycopyr 9 2 inh inhalation BID 11/24/24 08/16/24 History mcg-formot 4.8 mcg/actuation HFA inhaler (Breztri Aerosphere) rivaroxaban 2.5 mg tablet (Xarelto) 2.5 mg PO Q12H 11/24/24 10/16/24 History doxazosin 2 mg tablet 2 mg PO HS 08/19/24 11/24/24 10/15/24 History losartan 100 mg tablet 100 mg PO DAILY 09/10/2410/16/24 History <Alexandra Saleem PA-C - Last Filed: 02/16/25 17:48> Allergies/Adverse Reactions: Allergies Allergy/AdvReac Type Severity Reaction Status Date / Time No Known Allergies Allergy Unknown Verified 02/16/25 16:07 <Alexandra Saleem PA-C - Last Filed: 02/16/25 17:48> Review of Systems 2 Review of Systems: All systems reviewed & are unremarkable except as noted in HPI and below <Dory Khan MD - Last Filed: 02/16/25 17:47> [facility] Past Medical History Medical History: Medical History (Updated 02/16/25 @ 17:48 by Alexandra Saleem PA-C) BMI greater than 40 Fatty liver Thrombocytopenia Hypertension Coronary artery disease Stent to the distal circumflex and Left anterior descending in 2014. Left anterior descending stent in 04/2015. COVID Transient ischemic attack multiple Diabetic peripheral neuropathy Peripheral vascular disease Deep venous thrombosis Gastric ulcer Obstructive sleep apnea on CPAP Hyperlipidemia Type 2 diabetes mellitus not on insulin Gastroesophageal reflux disease Chronic obstructive pulmonary disease Cerebrovascular accident x2; Mild left-sided weakness. Congestive heart failure Chronic anticoagulation Hydronephrosis Psoriasis Depression Fracture of fifth toe, right, closed Kidney stones Pneumonia Myocardial infarction Seasonal allergies <Alexandra Saleem PA-C - Last Filed: 02/16/25 17:48> Surgical History Surgical History: Surgical History History of coronary artery stent placement x3 History of tonsillectomy History of cholecystectomy History of lithotripsy History of rectal polypectomy History of cardiac catheterization multiple <Alexandra Saleem PA-C - Last Filed: 02/16/25 17:48> Family History Family History: Family History Mother Diabetes mellitus Arthritis Kidney stones Coronary artery disease Father Acute myocardial infarction <65yo Heart disease Kidney stones Hypertension Coronary artery disease Sibling Coronary artery disease Heart disease Hx of CABG <Alexandra Saleem PA-C - Last Filed: 02/16/25 17:48> Social History Social History: Social History Social History: Surrogate decision maker: Renacornell Dodd, friend. Code status: Full code. Reports having a grandchild (who plays baseball) though previously reported that he doesn't have children Smoking packs per day: 1 Smoking cigarettes per day: 20.0 Years smoked: 47 Smoking pack-years: 47.00 Smoking status: Former smoker Tobacco type: cigarettes Second hand tobacco smoke exposure: Yes Smoking end date: 02/22/24 Alcohol intake: former Drinks per week: 0 Substance use: never Substance use type: does not use Last use: 10/01/2023 Lack of Transportation: No Lack of Food: Never True Current Housing: I Have Housing Concerned About Future Housing: No Difficulty Paying Gas/Electric Bills: No Difficulty Paying for Meds: No Currently Unemployed: No Education: High School Diploma/GED Difficulty w/ Childcare or Family Care: No Living arrangements: with roommate(s) Additional living arrangements comments: The patient lives in [place] with a roommate. He has no children. Occupation/Education: other Additional occupation/education comments: Disabled. Spiritual care concerns: No <Alexandra Saleem PA-C - Last Filed: 02/16/25 17:48> Exam 2 Narrative: EXAMINATION OF ORGAN SYSTEMS/BODY AREAS: Constitutional: Vital signs per nursing GENERAL:No acute distress, non-toxic appearing. HEAD: Normal with no signs of head trauma. EYES: EOMI, conjunctiva normal ENT: Hearing grossly intact LUNGS: Nonlabored breathing. CTAB HEART: Regular rate and rhythm, normal bilateral equal radial and DP pulses ABD: Soft, nontender to palpation EXT: Normal range of motion SKIN: No rashes or lesions. NEURO: Alert. No gross focal sensory or strength deficits. Equal bilaterally upper and lower extremity PSYCH: Normal affect <Dory Khan MD - Last Filed: 02/16/25 17:47> Course Vital Signs Vital signs: Vital Signs Temperature 98.1 F 02/16/25 13:23 Pulse Rate 85 02/16/25 13:23 Respiratory Rate 16 02/16/25 13:23 Blood Pressure 167/100 H 02/16/25 13:23 Pulse Oximetry 100 02/16/25 13:23 Oxygen Delivery Room Air 02/16/25 13:23 Temperature 98.1 F 02/16/25 13:23 Pulse Rate 75 02/16/25 17:27 Respiratory Rate 18 02/16/25 17:27 Blood Pressure 123/72 02/16/25 17:27 Pulse Oximetry 97 02/16/25 17:27 Oxygen Delivery Room Air 02/16/25 16:08 <Alexandra Saleem PA-C - Last Filed: 02/16/25 17:48> Vital Signs Temperature 98.1 F 02/16/25 13:23 Pulse Rate 85 02/16/25 13:23 Respiratory Rate 16 02/16/25 13:23 Blood Pressure 167/100 H 02/16/25 13:23 Pulse Oximetry 100 02/16/25 13:23 Oxygen Delivery Room Air 02/16/25 13:23 Temperature 98.1 F 02/16/25 13:23 Pulse Rate 75 02/16/25 17:27 Respiratory Rate 18 02/16/25 17:27 Blood Pressure 123/72 02/16/25 17:27 Pulse Oximetry 97 02/16/25 17:27 Oxygen Delivery Room Air 02/16/25 16:08 <Dory Khan MD - Last Filed: 02/16/25 17:47> [facility] MDM Narrative Medical decision making narrative: 64-year-old male presenting with chest pain; states it initially started with some headache, then he felt some pain to both arms and sensation of overall generalized weakness; has also been having a cough. After taking some nitroglycerin he does not have any chest pain he does have has some vague discomfort overall. EKG done in triage negative for acute ischemic changes. Cardiac workup is initiated. EKG: Performed in triage and interpreted by me. Normal sinus rhythm with right bundle-branch block. Rate 84. Normal axis. AZ normal. QRS duration normal. QTc normal. No pathologic Q waves. No ST segment elevation or depression to suggest acute ischemia. No RV strain pattern. HEART score is 3 with no acute ischemic changes on EKG and negative troponin making ACS less likely. Wells low risk with no shortness of breath, DVT symptoms, making PE unlikely. Presentation not consistent with dissection or aneurysm without pulse deficits or significant pain. CXR negative for mediastinal widening. No abdominal pain or signs of sepsis that would be concerning for esophageal perforation or mediastinitis. No cardiomegaly or JVD to suggest pericardial effusion/tamponade. Chest x-ray showing a possible bilateral pneumonia so I will start him on antibiotics. On repeat evaluation just prior to discharge, the patient is no acute distress. I had a long discussion with the patient and offered him admission, with shared decision making, he does not want to stay, he is comfortable with outpatient management. He was given clear return instructions by myself in person as well as on discharge paperwork and I did let him know if he changes his mind he can always come back. <Dory Khan MD - Last Filed: 02/16/25 17:47> Differential Diagnosis Differential Diagnosis: Viral syndrome, ACS, dissection <Dory Khan MD - Last Filed: 02/16/25 17:47> Lab Data Result diagrams: 02/16/25 13:33 02/16/25 13:33 <Alexandra Saleem PA-C - Last Filed: 02/16/25 17:48> Labs: Lab Results 02/16/25 02/16/25 02/16/25 Range/Units 13:33 15:49 16:26 WBC 5.7 (4.5-10.0) K/mm3 RBC 4.74 (4.6-6.20) M/mm3 Hgb 15.0 (14.0-18.0) g/dL Hct 42.8 (42.0-52.0) % MCV 90.3 (80-100) fl MCH 31.6 (26-34) pg MCHC 35.0 (32-36) g/dl RDW 13.5 (11.5-14.5) % Plt Count 116 L (150-375) k/mm3 MPV 10.9 H (7.4-10.4) fl Immature Gran % (Auto) 0.3 (0-0.5) % Neut % (Auto) 75.0 H (45.5-73.1) % Lymph % (Auto) 14.5 L (18.3-44.2) % Fajardo % (Auto) 7.9 (2.6-8.5) % Eos % (Auto) 2.1 (0-4.4) % Baso % (Auto) 0.2 (0.2-1.2) % Lymph # (Auto) 0.83 L (0.9-3.2) K/mm3 Fajardo # (Auto) 0.5 (0.1-0.6) K/mm3 Eos # (Auto) 0.1 (0-0.3) K/mm3 Baso # (Auto) 0.0 (0.0-0.1) K/mm3 Abs Immat Gran (auto) 0.02 (0.00-0.031) K/mm3 Absolute Neuts (auto) 4.3 (1.3-6.7) K/mm3 Absolute Nucleated RBC 0.000 (0.0-0.012) K/mm3 Nucleated RBC % 0.0 (0.0-0.2) % % Immature Plt Fraction 4.5 (0.9-11.2) % PT 13.7 (11.1-14.7) Seconds INR 1.0 APTT 30.3 (22.3-36.8) Seconds Sodium 138 (137-145) mmol/L Potassium 3.8 (3.4-5.0) mmol/L Chloride 109 H (98-107) mmol/L Carbon Dioxide 18 L (22-30) mmol/L Anion Gap 11 (4-12) mmol/L BUN 17 (9-20) mg/dL Creatinine 1.03 (0.7-1.3) mg/dL Estim Creat Clear Calc 91 ml/min Estimated GFR > 60 (59 - ) Glucose 281 H (65-110) mg/dL Calcium 9.0 (8.4-10.2) mg/dL Total Bilirubin 0.6 (0.2-1.3) mg/dL AST 40 (17-59) U/L ALT 59 H (6-50) U/L Alkaline Phosphatase 79 (38-126) U/L Troponin I < 0.012 < 0.012 (0.000-0.034) ng/mL Total Protein 7.7 (6.3-8.2) g/dL Albumin 4.2 (3.5-5.1) g/dL Lipase 144 (23-300) U/L Influenza A (RT-PCR) Negative (Negative) Influenza B (RT-PCR) Negative (Negative) RSV (RT-PCR) Negative (Negative) SARS-CoV-2 RNA (RT-PCR) Negative (Negative) <Alexandra Saleem PA-C - Last Filed: 02/16/25 17:48> Lab Results 02/16/25 02/16/25 02/16/25 Range/Units 13:33 15:49 16:26 WBC 5.7 (4.5-10.0) K/mm3 RBC 4.74 (4.6-6.20) M/mm3 Hgb 15.0 (14.0-18.0) g/dL Hct 42.8 (42.0-52.0) % MCV 90.3 (80-100) fl MCH 31.6 (26-34) pg MCHC 35.0 (32-36) g/dl RDW 13.5 (11.5-14.5) % Plt Count 116 L (150-375) k/mm3 MPV 10.9 H (7.4-10.4) fl Immature Gran % (Auto) 0.3 (0-0.5) % Neut % (Auto) 75.0 H (45.5-73.1) % Lymph % (Auto) 14.5 L (18.3-44.2) % Fajardo % (Auto) 7.9 (2.6-8.5) % Eos % (Auto) 2.1 (0-4.4) % Baso % (Auto) 0.2 (0.2-1.2) % Lymph # (Auto) 0.83 L (0.9-3.2) K/mm3 Fajardo # (Auto) 0.5 (0.1-0.6) K/mm3 Eos # (Auto) 0.1 (0-0.3) K/mm3 Baso # (Auto) 0.0 (0.0-0.1) K/mm3 Abs Immat Gran (auto) 0.02 (0.00-0.031) K/mm3 Absolute Neuts (auto) 4.3 (1.3-6.7) K/mm3 Absolute Nucleated RBC 0.000 (0.0-0.012) K/mm3 Nucleated RBC % 0.0 (0.0-0.2) % % Immature Plt Fraction 4.5 (0.9-11.2) % PT 13.7 (11.1-14.7) Seconds INR 1.0 APTT 30.3 (22.3-36.8) Seconds Sodium 138 (137-145) mmol/L Potassium 3.8 (3.4-5.0) mmol/L Chloride 109 H (98-107) mmol/L Carbon Dioxide 18 L (22-30) mmol/L Anion Gap 11 (4-12) mmol/L BUN 17 (9-20) mg/dL Creatinine 1.03 (0.7-1.3) mg/dL Estim Creat Clear Calc 91 ml/min Estimated GFR > 60 (59 - ) Glucose 281 H (65-110) mg/dL Calcium 9.0 (8.4-10.2) mg/dL Total Bilirubin 0.6 (0.2-1.3) mg/dL AST 40 (17-59) U/L ALT 59 H (6-50) U/L Alkaline Phosphatase 79 (38-126) U/L Troponin I < 0.012 < 0.012 (0.000-0.034) ng/mL Total Protein 7.7 (6.3-8.2) g/dL Albumin 4.2 (3.5-5.1) g/dL Lipase 144 (23-300) U/L Influenza A (RT-PCR) Negative (Negative) Influenza B (RT-PCR) Negative (Negative) RSV (RT-PCR) Negative (Negative) SARS-CoV-2 RNA (RT-PCR) Negative (Negative) <Dory Khan MD - Last Filed: 02/16/25 17:47> Imaging Data Radiologist's impression: ITS Impressions Chest X-Ray 02/16/25 14:53 Impression: Early bilateral pneumonia <Alexandra L. Saleem, PA-C - Last Filed: 02/16/25 17:48> ITS Impressions Chest X-Ray 02/16/25 14:53 Impression: Early bilateral pneumonia <Dory Khan MD - Last Filed: 02/16/25 17:47> Critical Care Time Critical Care Time Critical Care Time: No <Alexandra Saleem PA-C - Last Filed: 02/16/25 17:48> Discharge Plan Discharge Clinical Impression: Acute viral syndrome Chest pain Qualifiers: Chest pain type: unspecified Qualified Code(s): R07.9 - Chest pain, unspecified <Alexandra Saleem PA-C - Last Filed: 02/16/25 17:48> Patient Disposition: Home <Alexandra Saleem PA-C - Last Filed: 02/16/25 17:48> Condition: Stable <Alexandra Saleem PA-C - Last Filed: 02/16/25 17:48> Instructions: Chest Pain (ED), Pneumonia (ED) <Alexandra Saleem PA-C - Last Filed: 02/16/25 17:48> Additional Instructions: Please follow up with your doctor; take the medications as prescribed, you can always return for any further issues. <Alexandra Saleem PA-C - Last Filed: 02/16/25 17:48> Patient Language: Burkinan <Alexandra Saleem PA-C - Last Filed: 02/16/25 17:48> Prescriptions: New azithromycin 250 mg tablet 250 mg PO DAILY 4 Days Qty: 4 0RF Rx Instructions: start on day 2 of therapy amoxicillin-pot clavulanate 875-125 mg tablet 1 tablet PO Q12H Qty: 10 0RF No Action Breztri Aerosphere 160-9-4.8 mcg/actuation HFA aerosol inhaler 2 inh INHALATION BID losartan 100 mg tablet 100 mg PO DAILY cholestyramine (with sugar) [Questran] 4 gram powder in packet 4 g PO BID 30 Days Qty: 60 5RF Rx Instructions: administer w/meal; avoid other meds within 1hr before or 4-6hr after dose isosorbide mononitrate 60 mg tablet extended release 24 hr 120 mg PO DAILY carvedilol [Coreg] 12.5 mg Tablet 12.5 mg PO Q12HR Qty: 60 0RF nitroglycerin [Nitrostat] 0.4 mg Tablet, Sublingual 0.4 mg sublingual Q5MIN PRN (Reason: Chest Pain) Qty: 26 0RF omeprazole 40 mg capsule,delayed release(DR/EC) 40 mg PO DAILY Qty: 30 0RF tamsulosin 0.4 mg capsule 0.4 mg PO HS Qty: 30 0RF Jardiance 10 mg tablet 10 mg PO DAILY Qty: 30 0RF atorvastatin 80 mg tablet 80 mg PO DAILY Trulicity 3 mg/0.5 mL pen injector 3 mg SUBCUT WEEKLY Patient Comments: TAKES ON Tuesdays furosemide 40 mg tablet 40 mg PO DAILY clopidogrel 75 mg Tablet 75 mg PO QAM Qty: 30 0RF sacubitril-valsartan [Entresto] 24-26 mg Tablet 1 tab PO Q12HR Qty: 30 0RF doxazosin 2 mg tablet 2 mg PO HS bupropion HCl [Wellbutrin SR] 150 mg tablet sustained-release 12 hr 150 mg PO Q12H amlodipine 10 mg tablet 10 mg PO DAILY Patient Comments: take off hold, pt is taking currently metformin 1,000 mg tablet 1,000 mg PO BID alprazolam 0.25 mg tablet 0.25 mg PO HS Rx Instructions: at bedtime rivaroxaban [Xarelto] 2.5 mg tablet 2.5 mg PO Q12H acetaminophen 500 mg tablet 1,000 mg PO TID PRN (Reason: matt) 7 Days Qty: 42 0RF ranolazine 500 mg tablet extended release 12 hr 500 mg PO Q12H 30 Days Qty: 60 0RF benzonatate 100 mg capsule 100 mg PO BID PRN (Reason: cough) Qty: 20 0RF acetaminophen 500 mg capsule 1,000 mg PO Q6H PRN (Reason: pain) Qty: 30 0RF <Alexandra Saleem PA-C - Last Filed: 02/16/25 17:48> Follow-up/Referrals: Angelina,JOVITA Junior [Primary Care Provider] - 2 Days <Alexandra Saleem PA-C - Last Filed: 02/16/25 17:48>
[2025-02-16 16:08] VITALS: O2SAT 98
--- OUTSIDE RECORDS SUMMARY | 2025-02-16 16:13 | XMS_ITS | Clinical Summary ---
Author Organization [facility] [address] Address [address] [place] [address] Care Team Providers Care Finance Administrator Name Role Phone Sandi Alfaro Primary [...] 24 hr tabletIndicatio ns:Coronary artery disease of [place] artery of [place] heart with stable angina pectoris TAKE 2 TABLETS BY MOUTH EVERY DAY 180 tablet 1 02/15/20 25 Active atorvastatin (LIPITOR) 80 mg tablet TAKE 1 TABLET BY MOUTH EVERY DAY 90 tablet 1 01/25/20 24 025 Discontinued(Re order) isosorbide mononitrate ER (IMDUR) 60 mg 24 hr tabletIndicatio ns:Coronary artery disease of [place] artery of [place] heart with stable angina pectoris TAKE 2 [...] Cryptogenic Stroke. DOI 10/12/[address] Willoughby. [employer] remote monitoring. TIA (transient ischemic attack) 10/06/2017 S/P coronary artery stent placement 12/17/2016 Morbid obesity with BMI of 45.0-49.9, adult ([facility]) 08/13/2016 Mixed anxiety depressive disorder 05/01/2015 Overview (06/07/2016): Anxiety and depression Coronary artery disease of n ative artery of [place] heart with stable angina pectoris 02/20/2015 Overview (06/07/2016): Coronary artery disease involving [place] coronary artery of [place] heart with other form of angina pectoris CVA, old, hemiparesis 02/20/2015 Overview (06/07/2016): CVA, old, hemiparesis Mixed diabetic hyperlipidemi a associated with type 2 diabetes mellitus ([facility]) 02/20/2015 Overview (06/07/2016): DM type 2 with diabetic dyslipidemia Hypertensive heart disease with congestive heart failure 02/20/2015 Overview (06/07/2016): Hypertensive heart disease with diastolic heart failure TAMIR on CPAP 10/17/2014 Overview (06/07/2016): TAMIR on CPAP Diabetes mellitus 10/17/2014 Overview (06/07/2016): DM (diabetes mellitus) Hypertension associated with diabetes 10/17/2014 Overview (06/07/2016): HTN (hypertension), benign Encounters Date Type Department Care Team Description 02/02/2025 Telephone [facility] Cardiology [address] [place] [address] Fernando Modi MD Med Refill [...] on file Legal 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
--- OUTSIDE RECORDS SUMMARY | 2025-02-16 16:13 | XMS_ITS | Clinical Summary ---
Author Organization [facility] [employer] Address [address] [place] [address] Care Team Providers Care Ammonia Refrigeration Worker Name Role Phone Sandi Alfaro ASSISTANT WOMENS VOLLEYBALL COACH-INDUSTRIAL WASTE INSPECTOR Primary Care Provider Source Comments [facility] [employer],non-owned Affiliates and Associated Physician Practices is amultiple site organization consisting of ambulatory clinics and hospital sitesin [place], [place], [place] and [place]. This disclosure is being madepursuant to the Care Everywhere program and may not contain all information available regarding this patient. Last updated 17.[facility] [employer] Allergies No known active allergies Medications * [...] on file Legal Sex Male 5:35 PM FAMILY SUPPORT WORKER Gender Identity Not on file Sexual Orientation [...] ORDERABLES F inal Result Performing Organization Address [facility] Co de Phone Number [address] [phone] * HEPATITIS C AB SCREEN RFLX NAAT [...] ORDERABLES Fi nal Result Performing Organization Address City/[facility]/ZIP Co de Phone Number [address] [address], [place] [phone] from Last 3 Months or Most Recently Relevant to Health Maintenance Insurance MEDICARE MEDICAID - OUT OF STATE MEDICARE MEDICAID - [place] Advance Directives * Full Code (Latest Code Status on File) Date Activated Date Inactivated Comments 05/26/2018 2:01 PM 05/28/2018 11:56 AM Care Teams Ammonia Refrigeration Worker Relationship Specialty Start Date End Date Sandi Alfaro APRN-INDUSTRIAL WASTE INSPECTOR [address] [place] [id number] PCP - General 08/27/21
--- OUTSIDE RECORDS SUMMARY | 2025-02-16 16:13 | XMS_ITS | Encounter Summary ---
Author Organization [facility] Address [address] [place] [address] Care Team Providers Care Fitness Centre Manager Name Role Phone Salo Forrest MD Primary Care Provider +- [phone] Sandi Alfaro Primary Care Provider + Encounter Details Date Type Department Care Team (Late st Contact Info) Description 05/11/2017 Orders Only [facility] Health Information Management [address] [place] [address] Scanning, Provider Social History Tobacco Use Types Packs/Day Years Used Date Smoking Tobacco: Former Smokeless Tobacco: Never Alcohol Use Standard Drinks/Week Comments Yes 0 (1 standard drink = 0.6 oz pur e alcohol) Sex and Gender Information Value Date Recorded Sex Assigned at Not on file Legal Sex Male 3:15 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
--- OUTSIDE RECORDS SUMMARY | 2025-02-16 16:13 | XMS_ITS | Encounter Summary ---
Author Organization [facility] Healthcare Address [address] [place] [address] Care Team Providers Care Director Technical Name Role Phone Salo Forrest MD Primary Care Provider +- [phone] Sandi Alfaro Primary Care Provider + Encounter Details Date Type Department Care Team (Late st Contact Info) Description 08/03/2017 Orders Only [facility] [place] [address] [place] [address] Scanning, Provider Social History Tobacco Use Types Packs/Day Years Used Date Smoking Tobacco: Former Smokeless Tobacco: Never Alcohol Use Standard Drinks/Week Comments Yes 0 (1 standard drink = 0.6 oz pur e alcohol) Sex and Gender Information Value Date Recorded Sex Assigned at Not on file Legal Sex Male 3:15 AM ERGONOMICS ENGINEER Gender Identity Male 09/03/2018 6:22 AM CDT [...] on filedocumented in this encounter Care Teams Director Technical Relationship Specialty Start Date End Date Salo Forrest MD [address] [place] [address] PCP - General 3/31/17 6/21/18 Sandi Alfaro PA [address] [place] [address] PCP - General Nurse Practitioner 08/21/17 documented as of this encounter
--- OUTSIDE RECORDS SUMMARY | 2025-02-16 16:13 | XMS_ITS | Encounter Summary ---
Author Organization [facility] Healthcare Address [address] [place] [address] Care Team Providers Care Anchorer Name Role Phone Sandi Alfaro Primary Care Provider + Encounter Details Date Type Department Care Team (Late st Contact Info) Description 07/20/2024 Orders Only [facility] Information Management [address] [place] [id number] Scanning, Provider Social History Tobacco Use Types Packs/Day Years Used Date Smoking Tobacco: Some Days Cigarettes 0.3 15 Smokeless Tobacco: Never Alcohol Use Standard Drinks/Week Comments Yes 0 (1 standard drink = 0.6 oz pur e alcohol) Sex and Gender Information Value Date Recorded Sex Assigned at Not on file 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
[2025-02-16 16:30] LABS: Influenza A QL RT-PCR Negative (Negative); Influenza B QL RT-PCR Negative (Negative); RSV RNA, RT-PCR Negative (Negative); SARS-CoV-2 RNA PCR Negative (Negative)
[2025-02-16 16:52] LABS: Troponin I < 0.012 ng/mL (0.000-0.034)
[2025-02-16] MEDS: ACETAMINOPHEN 325 MG TABLET 650 MG PO (17:08)
[2025-02-16 17:27] VITALS: BP 123/72; PULSE 75; RESP 18; O2SAT 97
[2025-02-16] MEDS: AZITHROMYCIN 500 MG TABLET PO (17:46)
== END 2025-02-16 17:56 | disposition home or self-care (01) ==
PROVIDERS: Physician Assistant; Emergency Provider Emergency Medicine; PCP Registered Nurse
DX: B34.9 Viral infection, unspecified (principal); R07.9 Chest pain, unspecified; Z20.822 Contact with and (suspected) exposure to COVID-19; E78.5 Hyperlipidemia, unspecified; E11.9 Type 2 diabetes mellitus without complications; G47.33 Obstructive sleep apnea (adult) (pediatric); Z99.89 Dependence on other enabling machines and devices; K21.9 Gastro-esophageal reflux disease without esophagitis; I25.10 Atherosclerotic heart disease of native coronary artery without angina pectoris; J44.9 Chronic obstructive pulmonary disease, unspecified; I50.9 Heart failure, unspecified; Z79.01 Long term (current) use of anticoagulants; I11.0 Hypertensive heart disease with heart failure; Z87.891 Personal history of nicotine dependence
CPT/HCPCS: 36415; 71046; 80053; 83690; 84484; 85025; 85055; 85610; 85730; 87637; 93005; 99284; A9270

== ENCOUNTER 2025-02-24 15:59 | Emergency (ER) | payer MEDICARE, MEDICAID, SELFPAY ==
[2025-02-24 16:19] VITALS: BP 107/65; PULSE 77; RESP 16; TEMP 36.2; O2SAT 96
--- NOTE | 2025-02-24 17:06 | ED.URI ---
HPI - URI/Sore Throat General Chief Complaint: Upper Respiratory Infection Stated Complaint: URI Symptoms, 02/16 dx with pneumonia Time Seen by Provider: 02/24/25 17:07 Source: patient, RN notes reviewed and old records reviewed Mode of arrival: ambulatory Limitations: no limitations History of Present Illness HPI Narrative: 64-year-old male presents to the [facility] with complaints cough, body aches, runny nose that started yesterday. Patient was diagnosed with pneumonia on February 16, states that he was getting better until yesterday. Reports is positive for COVID Related Data Home Medications ?Medication ?Instructions ?Recorded ?Confirmed ?Last Taken ?Type amlodipine 10 mg tablet 10 mg PO DAILY 01/24/19 11/24/24 10/16/24 History bupropion HCl 150 mg tablet,12 hr 150 mg PO Q12H 01/24/19 11/24/24 10/16/24 History sustained-release (Wellbutrin SR) metformin 1,000 mg tablet 1,000 mg PO BID 01/24/19 11/24/24 10/16/24 History isosorbide mononitrate 60 mg 120 mg PO DAILY 01/09/20 11/24/24 10/16/24 History tablet,extended release 24 hr alprazolam 0.25 mg tablet 0.25 mg PO HS 08/21/21 11/24/24 10/15/24 History atorvastatin 80 mg tablet 80 mg PO DAILY 06/13/24 11/24/24 10/16/24 History dulaglutide 3 mg/0.5 mL 3 mg subcut WEEKLY 06/13/24 11/24/24 10/11/24 History subcutaneous pen injector (Trulicity) furosemide 40 mg tablet 40 mg PO DAILY 06/13/24 11/24/24 10/09/24 History budesonide 160 mcg-glycopyr 9 2 inh inhalation BID 06/28/24 11/24/24 08/16/24 History mcg-formot 4.8 mcg/actuation HFA inhaler (Breztri Aerosphere) rivaroxaban 2.5 mg tablet (Xarelto) 2.5 mg PO Q12H 07/12/24 11/24/24 10/16/24 History doxazosin 2 mg tablet 2 mg PO HS 08/19/24 11/24/24 10/15/24 History losartan 100 mg tablet 100 mg PO DAILY 09/10/24 11/24/24 10/16/24 History Allergies Allergy/AdvReac Type Severity Reaction Status Date / Time No Known Allergies Allergy Unknown Verified 02/16/25 16:07 Review of Systems Review of Systems: All systems reviewed & are unremarkable except as noted in HPI and below Constitutional: Constitutional: Reports as per HPI ENT: Reports as per HPI Cardiovascular: Cardiovascular: Reports no additional cardiovascular complaints, Denies chest pain and Denies dyspnea Respiratory: Respiratory: Reports no additional respiratory complaints, Denies chest congestion, Denies cough and Denies dyspnea Musculoskeletal: Musculoskeletal: Reports no additional musculoskeletal complaints Integumentary/Breasts: Skin/Breast: Reports system reviewed and no additional complaints, except as docu [facility] Past Medical History Medical History BMI greater than 40 Fatty liver Thrombocytopenia Hypertension Coronary artery disease Stent to the distal circumflex and Left anterior descending in 2014. Left anterior descending stent in 04/2015. COVID Transient ischemic attack multiple Diabetic peripheral neuropathy Peripheral vascular disease Deep venous thrombosis Gastric ulcer Obstructive sleep apnea on CPAP Hyperlipidemia Type 2 diabetes mellitus not on insulin Gastroesophageal reflux disease Chronic obstructive pulmonary disease Cerebrovascular accident x2; Mild left-sided weakness. Congestive heart failure Chronic anticoagulation Hydronephrosis Psoriasis Depression Fracture of fifth toe, right, closed Kidney stones Pneumonia Myocardial infarction Seasonal allergies Surgical History Surgical History History of coronary artery stent placement x3 History of tonsillectomy History of cholecystectomy History of lithotripsy History of rectal polypectomy History of cardiac catheterization multiple Family History Family History Mother Diabetes mellitus Arthritis Kidney stones Coronary artery disease Father Acute myocardial infarction <65yo Heart disease Kidney stones Hypertension Coronary artery disease Sibling Coronary artery disease Heart disease Hx of CABG Social History Social History Social History: Surrogate decision maker: Rena Dodd, friend. Code status: Full code. Reports having a grandchild (who plays baseball) though previously reported that he doesn't have children Smoking packs per day: 1 Smoking cigarettes per day: 20.0 Years smoked: 47 Smoking pack-years: 47.00 Smoking status: Former smoker Tobacco type: cigarettes Second hand tobacco smoke exposure: Yes Smoking end date: 02/22/24 Alcohol intake: former Drinks per week: 0 Substance use: never Substance use type: does not use Last use: 10/01/2023 Lack of Transportation: No Lack of Food: Never True Current Housing: I Have Housing Concerned About Future Housing: No Difficulty Paying Gas/Electric Bills: No Difficulty Paying for Meds: No Currently Unemployed: No Education: High School Diploma/GED Difficulty w/ Childcare or Family Care: No Living arrangements: with roommate(s) Additional living arrangements comments: The patient lives in [place] with a roommate. He has no children. Occupation/Education: other Additional occupation/education comments: Disabled. Spiritual care concerns: No Comments At the time of my signature, I reviewed and agree with the nursing past medical, surgical, social, and family history. There is no relevant family history pertinent to the patient complaint. Exam Const: General: cooperative, healthy appearing, comfortable, no acute distress, well developed, alert and well nourished Nutritional Appearance: well nourished and obese Orientation/consciousness: patient oriented x3 Limitations: no limitations HENMT: Head: normal to inspection Ears: hearing grossly normal bilaterally, external ears normal, TM's normal bilaterally, EAC's normal, mastoids normal and no periauricular adenopathy Throat: posterior oropharynx normal, uvula midline and no uvular edema Eyes: General: appearance normal, both eyes and all related structures Alignment and Position: alignment normal Neck: Neck: normal visual inspection, full ROM, no lymphadenopathy and no meningeal signs Chest: Chest palpation & inspection: normal inspection of the chest Resp: Effort & Inspection: normal respiratory effort and able to speak in complete sentences Auscultation: clear to auscultation bilaterally, no crackles, no rales, no rhonchi and no wheezes Cardio: Rate: regular rate Skin: General skin exam: normal color and no rashes or lesions noted Neuro: General: patient oriented x3, gait normal, moves all extremities and no meningeal signs Cognition (Neuro): normal cognition Speech: normal speech Gait exam (Neuro): Normal gait present Extrem: General: normal to inspection, full ROM, capillary refill normal and normal gait Psych: Appearance: grossly normal and well kempt Mental Status: mental status grossly normal Speech and movement: Normal speech and movement present and Clear speech present Affect: normal affect Attitude: cooperative Course Course Level of Care: Express Care Visit Vital Signs Vital signs: Vital Signs Temperature 97.1 F L 02/24/25 16:19 Pulse Rate 77 02/24/25 16:19 Respiratory Rate 16 02/24/25 16:19 Blood Pressure 107/65 02/24/25 16:19 Pulse Oximetry 96 02/24/25 16:19 Oxygen Delivery Room Air 02/24/25 16:19 Temperature 97.1 F L 02/24/25 16:19 Pulse Rate 77 02/24/25 16:19 Respiratory Rate 16 02/24/25 16:19 Blood Pressure 107/65 02/24/25 16:19 Pulse Oximetry 96 02/24/25 16:19 Oxygen Delivery Room Air 02/24/25 16:19 reviewed MDM MDM Narrative Medical decision making narrative: Patient sitting in exam. Patient is nontoxic, vitals stable. Patient presents with cough, body aches, runny nose since yesterday. No treatment prior to arrival. Patient is COVID positive. Patient is appropriate for outpatient treatment with close follow-up Discharge instructions reviewed with patient, as well as provided in writing per nursing staff. The instructions also include specific and strict return/GO TO THE ER as well as f/u information. All questions have been answered, and the patient deny any further questions with discharge and discharge plan. Some parts of this dictation were generated by voice recognition software and may contain typographical and/or grammatical inaccuracies. Differential Diagnosis Differential Diagnosis: Differential diagnostic considerations for upper respiratory infection include upper respiratory infection, croup, otitis media, sinusitis, viral infection, bronchitis, influenza, pharyngitis, strep, uvulitis.? Lab Data Labs: Lab Results 02/24/25 Range/Units 17:15 POC Influenza A Ag Negative (Negative) POC Influenza B Ag Negative (Negative) POC SARS CoV-2 Ag Positive (Negative) Reviewed Discharge Plan Discharge Clinical Impression: COVID-19 Patient Disposition: Home Condition: Stable Instructions: Antibiotic Form, COVID-19 (Coronavirus Disease 2019) (ED), COVID-19 and Chronic Health Conditions (ED), COVID-19: Slow the Coronavirus Spread (ED) Additional Instructions: Your rapid COVID test is positive Your rapid flu test was negative Your symptoms are due to a viral illness, which is not treated with antibiotics. Typically viral infections last 7-10 days, can linger for couple of weeks. It is very important to treat your symptoms. Drink plenty of water, Gatorade, Pedialyte, ice pops or Jell-O. -Alternate Tylenol and Motrin per package directions for fever or pain. You can alternate every 4 hours -Antihistamine medication such as Zyrtec/Claritin during the day can help improve symptoms. -doing daily nasal irrigations can help relieve pressure your sinuses. Things like a Neti pot -Use Flonase twice a day for 5 days then daily to help reduce the inflammation and dry up your sinuses. -You can also use Coricidin HBP or Mucinex. Be sure to drink plenty of water with this medication at least 8 ounces with every dose and it is important to drink 8 to 10 glasses of water per day. Water is a natural decongestant -Eat and drink things that are easy to swallow, like tea or soup, or popsicles. -Oral rinses such as: Salt water gargles and/or may use topical anesthetic (eg. Chloraseptic spray) or lozenges to relieve dryness or throat pain). -Frequent hand washing or hand nature photographer is one of the best ways to prevent spread of infection. -Using a vaporizer or humidifier at night will also help thin secretions and help with coughing up phlegm. -Follow up with primary care provider in 7-10 days if condition is not improving - For new or worsening symptoms go directly to the nearest ER Patient Language: Croatian Prescriptions: No Action Gabriel Aerosphere 160-9-4.8 mcg/actuation HFA aerosol inhaler 2 inh INHALATION BID losartan 100 mg tablet 100 mg PO DAILY cholestyramine (with sugar) [Questran] 4 gram powder in packet 4 g PO BID 30 Days Qty: 60 5RF Rx Instructions: administer w/meal; avoid other meds within 1hr before or 4-6hr after dose isosorbide mononitrate 60 mg tablet extended release 24 hr 120 mg PO DAILY carvedilol [Coreg] 12.5 mg Tablet 12.5 mg PO Q12HR Qty: 60 0RF nitroglycerin [Nitrostat] 0.4 mg Tablet, Sublingual 0.4 mg sublingual Q5MIN PRN (Reason: Chest Pain) Qty: 26 0RF omeprazole 40 mg capsule,delayed release(DR/EC) 40 mg PO DAILY Qty: 30 0RF tamsulosin 0.4 mg capsule 0.4 mg PO HS Qty: 30 0RF Jardiance 10 mg tablet 10 mg PO DAILY Qty: 30 0RF atorvastatin 80 mg tablet 80 mg PO DAILY Trulicity 3 mg/0.5 mL pen injector 3 mg SUBCUT WEEKLY Patient Comments: TAKES ON Tuesdays furosemide 40 mg tablet 40 mg PO DAILY clopidogrel 75 mg Tablet 75 mg PO QAM Qty: 30 0RF sacubitril-valsartan [Entresto] 24-26 mg Tablet 1 tab PO Q12HR Qty: 30 0RF doxazosin 2 mg tablet 2 mg PO HS azithromycin 250 mg tablet 250 mg PO DAILY 4 Days Qty: 4 0RF Rx Instructions: start on day 2 of therapy amoxicillin-pot clavulanate 875-125 mg tablet 1 tablet PO Q12H Qty: 10 0RF bupropion HCl [Wellbutrin SR] 150 mg tablet sustained-release 12 hr 150 mg PO Q12H amlodipine 10 mg tablet 10 mg PO DAILY Patient Comments: take off hold, pt is taking currently metformin 1,000 mg tablet 1,000 mg PO BID alprazolam 0.25 mg tablet 0.25 mg PO HS Rx Instructions: at bedtime rivaroxaban [Xarelto] 2.5 mg tablet 2.5 mg PO Q12H acetaminophen 500 mg tablet 1,000 mg PO TID PRN (Reason: matt) 7 Days Qty: 42 0RF ranolazine 500 mg tablet extended release 12 hr 500 mg PO Q12H 30 Days Qty: 60 0RF benzonatate 100 mg capsule 100 mg PO BID PRN (Reason: cough) Qty: 20 0RF acetaminophen 500 mg capsule 1,000 mg PO Q6H PRN (Reason: pain) Qty: 30 0RF Follow-up/Referrals: Angelina,JOVITA Junior [Primary Care Provider] - 2 Weeks Clinical Impression: COVID-19 Time of Disposition: 17:10
[2025-02-24 17:17] LABS: EDCOVIDSCREEN Positive (Negative); EDINFLUASCREEN Negative (Negative); EDINFLUBSCREEN Negative (Negative)
== END 2025-02-24 17:17 | disposition home or self-care (01) ==
PROVIDERS: Emergency Provider Nurse Practitioner; PCP Registered Nurse
DX: U07.1 COVID-19 (principal); E11.9 Type 2 diabetes mellitus without complications; I25.10 Atherosclerotic heart disease of native coronary artery without angina pectoris; E78.5 Hyperlipidemia, unspecified; I11.0 Hypertensive heart disease with heart failure; I50.9 Heart failure, unspecified; Z86.73 Personal history of transient ischemic attack (TIA), and cerebral infarction without residual deficits; Z87.891 Personal history of nicotine dependence
CPT/HCPCS: 87426; 87804; 99212; G0463